=== PATIENT | female | born 1970 | race Caucasian/White ===

== ENCOUNTER 2017-10-19 13:29 | Emergency (ER) | payer MEDICARE, SELFPAY ==
[2017-10-19 13:31] VITALS: BP 146/91; PULSE 105; RESP 18; TEMP 36.8; O2SAT 97; BMI 33.3
--- NOTE | 2017-10-19 15:10 | RAD_ITS ---
STUDY: X-RAY - PELVIS AND LEFT HIP REASON FOR EXAM: Female, 47 years old. fell. Pain in left mid femur into left hip. TECHNIQUE: Radiological exam, hip, unilateral, with pelvis when performed; 2 or 3 views. COMPARISON: None. FINDINGS: Stool throughout the colon. Normal visualized soft tissue structures. Normal bilateral iliac wings, sacroiliac joints and visualized sacrum. Normal bilateral superior and inferior pubic rami. Normal pubic symphysis. Normal bilateral ischial tuberosities. Normal visualized femoral head. There is osteoarthritic spur formation of the acetabular rim. There is mild articular joint space narrowing of the hip. RAD/Hip 2-3 Views with Pelvis IMPRESSION: Mild degenerative findings the left hip. Constipation Electronically Signed: Brandon Mccoy MD at 16:10 EST , Service support ,
--- NOTE | 2017-10-19 15:11 | ED.VISSUMM ---
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 Including the left hip knee tib-fib ankle and foot on the left are unremarkable she claims of some mild pain to the left mid thigh but again the left lower extremity has full range of motion generally unremarkable exam the knee on the left is unremarkable as is the calf ankle and foot the right side is unremarkable the upper extremities are uninvolved she is neurologically at her baseline Test Results: [] Emergency Department Course and Treatment: [] Given all the above and x-rays obtained of the left hip and femur that are unremarkable explained the above to her there is no signs this time with acute fracture I explained the concept of an occult ligamentous bony tendinous injury there is nothing to suggest DVT there is no vascular abnormalities, we discussed using a walker cane crutches she denies that she is able to take Tylenol No. 3 as a pain med related to allergies to other meds she was prescribed 12 tablets ice to the area recommended a cane and follow-up with her family doctor or orthopedics and return for change in symptoms she agrees to this plan Treatment Plan: [] Disposition: [] Stable home Impression: [] Fall with left lower extremity pain injury This note was generated with [employer] dictation software. It may contain incorrect words, spelling, and punctuation that were not noted in review of the chart prior to signing ED Disposition - Plan for ED Patient: Chief Complaint: Fall Referrals: Ifeoma Mustafa MD [Primary Care Provider] -
--- NOTE | 2017-10-19 15:14 | ED.DEP ---
ED Disposition - Plan for ED Patient: Chief Complaint: Fall Instructions: ED Mechanical Fall Prescriptions: Acetaminophen/Codeine #3 [Tylenol #3 Tablet] 1 - 2 tab PO Q6H PRN #12 tab PRN Reason: Pain Referrals: Ifeoma Mustafa MD [Primary Care Provider] - Sasha Valles DO [STAFF PHYSICIAN] -
--- NOTE | 2017-10-19 15:32 | RAD_ITS ---
STUDY: X-RAY - LEFT FEMUR REASON FOR STUDY: Female, 47 years old. Patient fell. Pain in left mid femur into left hip. TECHNIQUE: Radiological exam, femur, minimum 2 views COMPARISON: None. FINDINGS: There is an exostosis of the distal lateral femoral shaft. This points away from the joint. Normal visualized soft tissue structure. No acute fractures. No dislocation. RAD/Femur Min 2 Views IMPRESSION: There is an exostosis of the distal lateral femoral shaft. This points away from the joint. This is likely benign. Electronically Signed: Brandon Mccoy MD at 16:02 EST , Service support ,
[2017-10-19 16:38] VITALS: RESP 18
[2017-10-19 16:51] VITALS: BP 159/82; PULSE 96; O2SAT 99
== END 2017-10-19 16:52 | disposition home or self-care (01) ==
PROVIDERS: Emergency Provider Emergency Medicine; Family Provider Internal Medicine; PCP Internal Medicine
DX: M79.605 Pain in left leg (principal); H54.8 Legal blindness, as defined in USA; W01.0XXA Fall on same level from slipping, tripping and stumbling without subsequent striking against object, initial encounter; Y93.9 Activity, unspecified; Y92.89 Other specified places as the place of occurrence of the external cause; Y99.9 Unspecified external cause status
CPT/HCPCS: 73502; 73552; 99282

== ENCOUNTER → 2017-10-29 13:15 | Outpatient (CLI) | payer MEDICARE, SELFPAY ==
--- NOTE | 2017-10-29 13:18 | RAD_ITS ---
STUDY: X-RAY - PELVIS AND RIGHT HIP REASON FOR EXAM: Right hip pain, no specific injury. TECHNIQUE: Radiological exam, hip, unilateral, with pelvis when performed; 2 or 3 views. COMPARISON: Radiographs of the pelvis/left hip 10/19/2017. FINDINGS: There are small pelvic phleboliths. There is mild enthesopathy of the iliac crests bilaterally. Normal bilateral superior and inferior pubic rami. Normal pubic symphysis. Normal bilateral ischial tuberosities. Normal visualized right femoral head. Normal right acetabulum. There are small marginal osteophytes of the right femoral head without demonstrated joint space narrowing. RAD/Hip 2-3 Views with Pelvis IMPRESSION: Small marginal osteophytes of the right femoral head. Electronically Signed: David Reed MD at 15:34 EST Tel , Service support ,
== END ==
PROVIDERS: Family Provider Internal Medicine; PCP Internal Medicine; Visit Provider Orthopaedic Surgery
DX: M25.551 Pain in right hip (principal)
CPT/HCPCS: 73502

== ENCOUNTER → 2018-01-20 10:10 | Outpatient (CLI) | payer MEDICARE, MEDICAID, SELFPAY ==
--- NOTE | 2018-01-20 10:22 | US_ITS ---
STUDY: SUPERFICIAL ULTRASOUND - LEFT INDEX FINGER. REASON FOR EXAM: Female, 47 years old. Swelling. TECHNIQUE: A superficial ultrasound was performed with real-time and static saunders-scale imaging. COMPARISON: None. FINDINGS: Imaging of the left index finger was performed. No sonographic abnormality is seen. US/Ext Non Vasc Limited/Soft Tiss IMPRESSION: No sonographic abnormality is seen. Electronically Signed: Reed Vallejo MD at 10:17 EDT Tel [phone], Service support ,
== END ==
PROVIDERS: Family Provider Internal Medicine; PCP Internal Medicine
DX: R22.32 Localized swelling, mass and lump, left upper limb (principal)
CPT/HCPCS: 76882

== ENCOUNTER → 2018-03-04 12:14 | Outpatient (CLI) | payer MEDICARE, MEDICAID, SELFPAY ==
--- NOTE | 2018-03-04 12:38 | MRI_ITS ---
STUDY: MRI LEFT HAND (ATTENTION INDEX FINGER) REASON FOR EXAM: Laceration at PIP joint of index finger in October, swelling, unable to bend. TECHNIQUE: Standardized fat and water weighted pulse sequences were obtained in all 3 orthogonal planes. COMPARISON: None. FINDINGS: Normal phalanges and visualized metacarpal of the index finger. Normal second metacarpophalangeal joint. Normal proximal and distal interphalangeal joints of the index finger. There is mild flexor tenosynovitis of the index finger from the level of the metacarpal head to the proximal phalangeal neck (inversion recovery axial images 7-19). The flexor tendons of the index finger appear intact. Normal extensor apparatus of the index finger with the central slip insertion intact (T2 sagittal image 10) and intact terminal tendon insertion (T2 sagittal image 10). Normal subcutis adipose space without soft tissue mass or cyst. MRI/Upper Ext/No Jt/ wo IMPRESSION: Mild flexor tenosynovitis of the index finger. No demonstrated extensor tendon laceration of the index finger. Electronically Signed: David Reed MD at 15:32 EDT Tel , Service support ,
== END ==
PROVIDERS: Family Provider Internal Medicine; PCP Internal Medicine
DX: S61.211A Laceration without foreign body of left index finger without damage to nail, initial encounter (principal)
CPT/HCPCS: 73218

== ENCOUNTER 2018-06-12 12:00 | Outpatient (RCR) | payer MEDICARE, MEDICAID, SELFPAY ==
--- NOTE | 2018-05-15 15:39 | HP.OTEVAL_ITS ---
Patient's Visit Information ALLIE LYNN is a 48 year old F, referred to Occupational Therapy by TORI PATINO, with a diagnosis of tenosynovitis flexor tendon of L IF. Date of Evaluation: 05/15/18 Occupational Therapist: Estela Ochoa - Subjective Subjective: Arrived and noted that she cut L IF PIP [facility] last year. She noted she has x-ray confirmed no break but MRI which indicate slight trigger finger but all else was normal. Noted very touchy and stiff. Has previously had trigger finger release a while ago on R thumb and believes also L IF but unsure at this time and will need to check medical records at [facility]. - Pain Hand 5 Pain Intensity Range: 4, 5, 8 - ROM MP: IF R 4-53, L -12-76 PIP: IF R 14-72, L 0-107 DIP: IF R -9- 28, L -27-47 - Strength Housekeeping Assistant: R 95, L 31 Lateral Pinch: R 16, L 2 Tripod Pinch: L 12, L 5 Tip-to-Tip Pinch: unable due to pain on L side. - Edema Other: puffiness over MCP volar base at A1 raymond. - Sensation Sensation Comments: denies numbness or tingling. - DASH-Disabilities of Arm, Shoulder& Hand DASH Sum: 80 - Goals Goal:: Allie to increase L termite treater helper strength in pain free range to that of within 20- 30 lbs of R termite treater helper to promote increased strength and ability to manipulation self care by d/c. Goal:: Allie to regain ROM of L IF PIP and DIP similar to R IF to decrease stiffness and promote ROM needed for self care and IADls by d/c. Goal:: Allie to have no more than 1/10 pain in L IF with ADL/IADLS 4/5 trials 80 % of the time by d/c. Goal:: Allie to be (i) with all ADL/IADLs 4/5 trials 80% of the time but d/c. Goal:: Allie to be mod I to complete HEP 80% of the time to promote decreasing symptoms and promote returning to PLOF 4/5 trials 80% of the time by d/c. - Rehabilitation General Assessment: Allie arrived for OT evaluation on this date 9/13/18. She believes she has previously had IF trigger finger release a while ago and has start having problems in October of this year. She noted she has increased pain with all movements of L IF. She additionally has decreased ROM, strength, and ability to manipulate self-care items like with R unaffected hand. OT needed to help decrease pain and provide with pain management techniques, promote ROM, strength, and returning to PLOF for all ADL/IADLs. Rehabilitation Potential: Good - Anticipated Interventions Anticipated Interventions: A/AAROM/PROM, Strengthening, Edema Control, Modalities, Orthoses, Joint Protection/Energy Conservation, Fine Motor Coord/ Bony, Caregiver Training, Home Program - Visit Plan Frequency: 2x /Week Duration: 4 Weeks General Plan: Allie to complete OT to promote decreasing pain and pain and edema management techniques, ROM, strengthening, and splint as needed to promote increased ability to complete ADL/AIDls (i) as possible despite visual limitations. TEXT: Thank you for the opportunity to evaluate your patient. For Medicare and Medicare HMO plans, please review the plan of care and approve it. It will need to be FAXED BACK to us at [phone] for Medicare purposes. Please let me know if there are questions or concerns regarding this plan of care. Physician Signature: Date:
--- NOTE | 2018-05-16 10:13 | HP.OTCOM ---
OT Communication Note 05/16/[address] TORI PATINO Sona has obtained medical records from [facility] and clarified that past trigger finger releases were on R thumb and L ring finger. She has not had trigger finger release on current L IF in which she has referred been for treatment. This will not affect treatment as conservative management of condition was part of POC. This was warranted to gain greater understanding of functioning and prior treatment of condition. Sincerely, Estela Ochoa, OTR/L Contact Information
--- NOTE | 2018-05-16 10:18 | HP.OTCOM_ITS ---
OT Communication Note 05/16/[address] TORI PATINO Sona has obtained medical records from [facility] and clarified that past trigger finger releases were on R thumb and L ring finger. She has not had trigger finger release on current L IF in which she has referred been for treatment. This will not affect treatment as conservative management of condition was part of POC. This was warranted to gain greater understanding of functioning and prior treatment of condition. Sincerely, Estela Ochoa, OTR/L Contact Information
--- NOTE | 2018-06-12 12:20 | OTREVAL_ITS ---
TORI PATINO, It has been my pleasure to treat ALLIE LYNN over the last 7 visits for tenosynovitis flexor tendon of L IF. Please see the progress note below for an update on the occupational therapy plan of care! Subjective: Arrived with no splint. Noted that she doesn't feel she has made much progress and noted that previously did not make progress until having trigger finger release completed. She has prior h/o of PXE. Objective/Function: Completed reassessment and measurements are as follows: IF. MCP R WNL L 10-56 passive L 10-61. PIP Flexion R WNL, L 10-64 passive L 10-80. DIP flexion R WNL, L 0-12 passive 0-41. Strength: landscaping and groundskeeping laborer R 62, L 29. lateral R 16, L 6. three jaw R 14, L 5. tip DNT due to pain. Increased sensitivity over volar skin and with all passive ROM. Increased edema noted on volar MCP pad at A1 raymond. Plan Frequency: 2x /Week Duration: 4 Weeks Visits in this POC: 8 Plan: Allie will be d/c'd today as she has completed approved visits by insurance. Due to little progress she has scheduled follow up with referring doctor to determine POC. She has not been wearing custom trigger finger splint and has been provided with information of where to obtained/purchase prefabricated one. Goals - Goals Goal:: Allie to increase L landscaping and groundskeeping laborer strength in pain free range to that of within 20- 30 lbs of R landscaping and groundskeeping laborer to promote increased strength and ability to manipulation self care by d/c. Goal:: Allie to regain ROM of L IF PIP and DIP similar to R IF to decrease stiffness and promote ROM needed for self care and IADls by d/c. Goal:: Allie to have no more than 1/10 pain in L IF with ADL/IADLS 4/5 trials 80% of the time by d/c. Goal:: Allie to be (i) with all ADL/IADLs 4/5 trials 80% of the time but d/c. Goal:: Allie to be mod I to complete HEP 80% of the time to promote decreasing symptoms and promote returning to PLOF 4/5 trials 80% of the time by d/c. Anticipated Interventions Anticipated Interventions: A/AAROM/PROM, Strengthening, Edema Control, Modalities, Orthoses, Joint Protection/Energy Conservation, Fine Motor Coord/Bony, Caregiver Training, Home Program Please do not hesitate to contact me at [phone] by phone or if you have questions or concerns regarding this new plan of care! Sincerely, Estela Ochoa
--- NOTE | 2018-07-17 17:02 | HP.OTDCSUM_ITS ---
HP - OT D/C Summary It has been my pleasure to treat ALLIE LYNN under orders from TORI PATINO, for the diagnosis of tenosynovitis flexor tendon of L IF for a total of 7 visit(s). Please see the following information for a summary of their discharge status. - Objective Objective/Function: Completed reassessment and measurements are as follows: IF. MCP R WNL L 10-56 passive L 10-61. PIP Flexion R WNL, L 10-64 passive L 10-80. DIP flexion R WNL, L 0-12 passive 0-41. Strength: metal fabricating inspector R 62, L 29. lateral R 16, L 6. three jaw R 14, L 5. tip DNT due to pain. Increased sensitivity over volar skin and with all passive ROM. Increased edema noted on volar MCP pad at A1 raymond. - Goals Patient Goals: Regain Mobility, Regain Strength, Decrease Pain, Improve Fine Motor Skills, Use Hand/Wrist/Arm Normally Again, Increase ROM, Be More Independent in ADLS, Decrease Sensitivity, Resume Former Household Responsibilities (Cooking,Cleaning,Yard, etc.), Resume Hobbies Goal:: Allie to increase L metal fabricating inspector strength in pain free range to that of within 20- 30 lbs of R metal fabricating inspector to promote increased strength and ability to manipulation self care by d/c. Goal:: Allie to regain ROM of L IF PIP and DIP similar to R IF to decrease stiffness and promote ROM needed for self care and IADls by d/c. Goal:: Allie to have no more than 1/10 pain in L IF with ADL/IADLS 4/5 trials 80% of the time by d/c. Goal:: Allie to be (i) with all ADL/IADLs 4/5 trials 80% of the time but d/c. Goal:: Allie to be mod I to complete HEP 80% of the time to promote decreasing symptoms and promote returning to PLOF 4/5 trials 80% of the time by d/c. - Plan Plan: Allie will be d/c'd today as she has completed approved visits by insur taj. Due to little progress she has scheduled follow up with referring doctor to determine POC. She has not been wearing custom trigger finger splint and has been provided with information of where to obtained/purchase prefabricated one. - D/C Information If there are questions or concerns regarding this patient's occupational therapy, please fell free to call me at [phone]. Thank you for the referral of this patient. Sincerely, Estela Ochoa
== END 2018-06-12 19:00 | disposition home or self-care (01) ==
LOC: OT 12:00
PROVIDERS: Family Provider Internal Medicine; PCP Internal Medicine
DX: M65.9 Synovitis and tenosynovitis, unspecified (principal)
CPT/HCPCS: 97035; 97110; 97166; 97168; 97530; 97760

== ENCOUNTER → 2018-10-20 14:04 | Outpatient (CLI) | payer MEDICARE, MEDICAID, SELFPAY ==
--- NOTE | 2018-10-20 14:08 | RAD_ITS ---
STUDY: X-RAY - LUMBAR SPINE REASON FOR EXAM: Female, 48 years old. No back pain TECHNIQUE: 5 view(s) of the lumbar spine were obtained. COMPARISON: CT abdomen pelvis sagittal views 12/07/2015. FINDINGS: Normal lumbar lordosis. There is no substantial scoliosis. There is a normal alignment of the vertebrae. Out spondylosis of the endplates. There is mild loss of vertebral body height along the superior endplate L1 and L2 left L3. There is anterior spurring of L1, L2, superior endplate L3 and L4. Mild facet arthropathy L4-5, 5 S1. Normal disc space heights. The soft tissue structures are unremarkable. RAD/L/S Spine Min 4 Views IMPRESSION: Degenerative changes of the spine, as detailed above. Mild decrease of vertebral body height of the upper lumbar spine was present on previous CT abdomen pelvis at L2 level. This is felt to be secondary to degeneration rather than trauma, clinical correlation advised. Electronically Signed: Elaine Ambrosio MD at 6:54 EST , Service support ,
--- NOTE | 2018-10-20 14:08 | RAD_ITS ---
STUDY: X-RAY - LEFT HIP REASON FOR EXAM: Female, 48 years old. Hip pain TECHNIQUE: 2 views of the hip. COMPARISON: None. FINDINGS: There appears to be a prominent osseous spur from the superior lateral aspect of the femoral head measuring 6.7 mm. There are osteoarthritic changes of the femoral head with marginal osteophyte formation. Normal acetabulum. There is mild articular joint space narrowing. Normal visualized superior and inferior pubic rami and ischial tuberosities. RAD/HIP, UNI W/ Pelvis 2-3 Views IMPRESSION: No acute findings. Early degenerative changes. Prominent femoral head spur Electronically Signed: Orlando Figueroa DO at 9:27 EST Tel , Service support ,
--- NOTE | 2018-10-20 14:08 | RAD_ITS ---
HISTORY: Pain COMPARISON: 10/29/2017 FINDINGS: XR AP pelvis right hip 3 views No significant change. No fracture or acute disease. The right and left femoral acetabular joint spaces appear preserved. No bony erosions. SI joints appear preserved. Pelvic phleboliths. Soft tissues show no significant abnormality. RAD/HIP, UNI W/ Pelvis 2-3 Views IMPRESSION: 1. No acute disease or significant change. 2. No significant arthritis identified. at 0742 Reported and signed by: Alan Nevarez MD Electronically Signed: Alan Nevarez, at 7:40 EST Tel , Service support ,
== END ==
PROVIDERS: Family Provider Internal Medicine; PCP Internal Medicine; Referring Provider Orthopaedic Surgery; Visit Provider Orthopaedic Surgery
DX: M25.551 Pain in right hip (principal); M25.552 Pain in left hip
CPT/HCPCS: 72110; 73502

== ENCOUNTER 2018-11-29 12:25 | Emergency (ER) | payer MEDICARE, MEDICAID, SELFPAY ==
[2018-11-29 12:28] VITALS: BP 151/71; PULSE 85; RESP 18; TEMP 36.4; O2SAT 97; BMI 31.2
--- NOTE | 2018-11-29 13:01 | EKG12_ITS ---
Test Reason : HTN Blood Pressure : / mmHG Vent. Rate : 083 BPM Atrial Rate : 083 BPM P-R Int : 150 ms QRS Dur : 066 ms QT Int : 362 ms P-R-T Axes : 024 -12 028 degrees QTc Int : 425 ms Normal sinus rhythm Low voltage QRS Septal infarct (cited on or before 09-DEC-2015), age undetermined Abnormal ECG Confirmed by MANISHA CORREIA, YOGI ([id number]), city editor AUDRA MONTEZ ([id number]) on 12/02/2018 1:09:12 PM Referred By: DEVAUGHN Confirmed By:YOGI DYER MD
--- NOTE | 2018-11-29 13:02 | CT_ITS ---
STUDY: CTA NECK WITH CONTRAST REASON FOR EXAM: Female, 48 years old. Dizziness RADIATION DOSAGE (If Supplied By Facility): CTDIvol = ( 23.54 ) mGy, DLP = ( 754.59 ) mGycm TECHNIQUE: CT angiography with multi-detector data acquisition was performed from the aortic arch to the skull base following intravenous administration of 100ml IV Isovue 370. MIP images were reconstructed from the axial data set. Post-processing of the angiographic images was performed, with multiplanar reformation and 3D reconstruction. Degree of stenosis (when present) measured utilizing NASCET criteria. Individualized dose optimization techniques were used for this CT. COMPARISON: None. FINDINGS: AORTIC ARCH: Normal visualized aortic arch. Normal origins of the brachiocephalic, left common carotid, and left subclavian arteries. RIGHT CAROTID ARTERIES: Normal right common carotid artery (CCA). There is mild atherosclerotic plaque formation with minimal narrowing of the right carotid bulb. There is mild atherosclerotic plaque formation of the origin of the right internal carotid artery with 40% cross sectional diameter stenosis. Normal visualized cervical portion of the right internal carotid artery. Normal origin of the right external carotid artery (ECA). LEFT CAROTID ARTERIES: Normal left common carotid artery (CCA). There is mild atherosclerotic plaque formation with minimal narrowing of the left carotid bulb. There is mild atherosclerotic plaque formation of the origin of the left internal carotid artery with 20% cross sectional diameter stenosis. Normal visualized cervical portion of the left internal carotid artery. Normal origin of the left external carotid artery (ECA). VERTEBRAL ARTERIES: There is enhancement within the bilateral vertebral arteries with a small left vertebral artery, and a dominant right vertebral artery. There are degenerative changes of the cervical spine. CT/CTA Neck W/WO Contrast IMPRESSION: 1. Right slightly worse than left ICA carotid atherosclerosis/stenosis measuring 40% on the right and 20% on the left. 2. No arterial dissection. Electronically Signed: Km Noyola MD at 15:30 EDT , Service support ,
--- NOTE | 2018-11-29 13:05 | ED.VISSUMM ---
- ER Visit Summary Date of Service: 11/29/18 Chief Complaint: Hypertension and high heart rate History of Present Illness: The patient is a 48 F who is just generally not felt well for the past week or so. She complains of intermittent headaches and sweats along with left shoulder throbbing this past week. 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 Patient states she used to be checked regularly but does not member when she last had ultrasound of her neck vessels or her heart checked. She called her primary care physician to be seen on Saturday but was advised to come to the emergency room. She states her heart rate at home was 113 which is slightly high for her. Physical Examination: Blood pressure is 151/71, temperature 97.6, heart rate 85, respiratory rate 18, pulse ox 97% on room air. Patient is sitting upright in bed in no acute distress. Head neck examination grossly unremarkable. Heart is regular rate and rhythm. Lungs sounds are clear. Abdomen is soft nontender. Extremity examination reveals no focal tenderness with palpation over the extremities. Neuro exam reveals no focal deficits. Test Results: CBC and chemistry studies normal. LFTs normal. Troponin negative. EKG is sinus 83 with no acute ischemia. CTA of the head and neck reveals moderate stenosis of the right cavernous carotid artery. There is right greater than left internal carotid artery stenosis (40% versus 20%). Emergency Department Course and Treatment: Patient is given IV fluids and ibuprofen. She is updated on the test results. She will be given prescription for Reglan and Benadryl that she can take with her ibuprofen at bedtime. Treatment Plan: [] Disposition: Discharge Impression: Cephalgia This note was generated with [employer] dictation software. It may contain incorrect words, spelling, and punctuation that were not noted in review of the chart prior to signing ED Disposition - Plan for ED Patient: Referrals: Ifeoma Mustafa MD [Primary Care Provider] -
[2018-11-29] MEDS: 0.9% Normal Saline 1,000 ML 150 ML IV (13:29)
[2018-11-29 13:30] VITALS: PULSE 80; RESP 20; O2SAT 95
[2018-11-29 13:49] LABS: Absolute Lymphocyte Count 1.26 X10^3/ul (0.83-4.51); Basophil# 0.02 X10^3/uL; Basophil% 0.3 % (0-1); Eosinophil# 0.28 X10^3/uL; Eosinophils% 3.8 % (0-5); Hematocrit 40.6 % (37-47); Lymphocyte # 1.26 X10^3/ul (4.0); Lymphocyte % 17.1 % (19-41); Mean Corpuscular Hgb 29.1 pg (27.0-32.0); Mean Platelet Vol. 10.5 fl (6.2-12.0); Monocyte% 10.9 % (0-10); Neutrophil # 4.99 X10^3/uL (2.7-7.7); Neutrophil % 67.6 % (47-70); POSITIVE COUNT NO; POSITIVE DIFFERENTIAL NO; POSITIVE MORPHOLOGY NO; Platelet Count 311 K/mm3 (150-450); RBC Distribution Width CV 12.9 % (11.6-14.6); RBC Distribution Width SD 42.7 fl (35.1-43.9); Red Blood Count 4.46 M/mm3 (4.2-5.4); White Blood Count 7.4 K/mm3 (4.4-11.0)
[2018-11-29 14:17] LABS: AST(SGOT) 21 U/L (15-37); Alanine Aminotransfer ALT/SGPT 27 U/L (13-56); Albumin, Serum 3.6 g/dL (3.2-5.0); Alkaline Phosphatase 86 U/L (45-117); Anion Gap 5 (5-15); BUN 20 mg/dL (7-18); BUN/Creat Ratio 20.7 RATIO (10-20); Bilirubin, Direct 0.11 mg/dL (0.00-0.30); Calcium,Total 8.8 mg/dL (8.5-10.1); Chloride 104 mmol/L (98-107); Creatinine, Serum 0.97 mg/dL (0.55-1.02); EST Glomerular Filtration Rate 65 mL/min (>60); Est Glom Filt Rate - Afr Amer 79 mL/min (>60); Estimated Creatinine Clearance 50.39 ml/min; Globulin 3.7 g/dL (2.2-4.2); Glucose 83 mg/dL (74-106); Potassium 3.9 mmol/L (3.5-5.1); Protein, Total 7.3 g/dL (6.4-8.2); Sodium Level 137 mmol/L (136-145)
--- NOTE | 2018-11-29 14:20 | CT_ITS ---
STUDY: CTA OF THE BRAIN REASON FOR EXAM: Female, 48 years old. Dizziness RADIATION DOSAGE (If Supplied By Facility): CTDIvol = ( 23.54 ) mGy, DLP = ( 754.59 ) mGycm TECHNIQUE: Noncontrast head CT initially performed. CT angiography was performed with a multi-detector CT scanner. Data acquisition was obtained from the skull base through the vertex following intravenous administration of 100ml IV Isovue 370. MIP images were reconstructed from the axial data set. Post-processing of the angiographic images was performed, with multiplanar reformation and 3D reconstruction. Individualized dose optimization techniques were used for this CT. COMPARISON: None. FINDINGS: Normal bilateral petrous carotid arteries. There is calcified plaque formation of the right cavernous carotid artery, with a moderate stenosis. Normal left cavernous carotid artery with a normal supraclinoid bifurcation. Normal right A1 segments of the anterior cerebral artery. Normal left A1 segments of the anterior cerebral artery. Normal intact anterior communicating artery (ACOM). Normal bilateral A2 segments of the anterior cerebral arteries. Normal right M1 and M2 segments of the middle cerebral arteries, with a normal M1 bifurcation. Normal left M1 and M2 segments of the middle cerebral arteries, with a normal M1 bifurcation. Normal right posterior communicating artery (PCOM). Normal left posterior communicating artery (PCOM). There is a small atretic left vertebral artery with a dominant right vertebral artery. Normal basilar artery with a normal basilar bifurcation. The visualized bilateral superior cerebellar (SCA) arteries are normal. Normal bilateral P1, P2 and visualized P3 segments of the posterior cerebral arteries. There is no demonstrated aneurysm of the [place]. Ventricular system is normal. No masses, mass effects or shift of midline structures. No acute hemorrhage, obvious infarction or abnormal collection of extra-axial fluid. The calvarium and extracranial soft tissues are unremarkable. The visualized paranasal sinuses, orbits and mastoid air cells are normal. CT/CTA Head W/WO Contrast IMPRESSION: 1. No intracranial aneurysm detected. 2. No acute intracranial hemorrhage or mass effect. 3. Moderate stenosis of the right cavernous carotid artery. Electronically Signed: Km Noyola MD at 15:27 EDT , Service support ,
[2018-11-29 15:20] VITALS: BP 121/85; PULSE 95; RESP 15; O2SAT 98
[2018-11-29] MEDS: Ibuprofen 600 MG Tablet PO (15:21)
--- NOTE | 2018-11-29 15:47 | ED.DEP ---
ED Disposition - Plan for ED Patient: Disposition: Home or Assisted Living Instructions: ED Cephalgia Unspecified Prescriptions: DiphenhydrAMINE [Benadryl] 50 mg PO QHS PRN PRN #7 capsule PRN Reason: Headache Metoclopramide [Reglan] 10 mg PO QHS PRN PRN #7 tablet PRN Reason: Headache Referrals: Ifeoma Mustafa MD [Primary Care Provider] - 5-7 Days
[2018-11-29 16:08] VITALS: BP 106/87; PULSE 79; RESP 17; O2SAT 98
== END 2018-11-29 16:09 | disposition home or self-care (01) ==
PROVIDERS: Emergency Provider Emergency Medicine; Family Provider Internal Medicine; PCP Internal Medicine
DX: R51 Headache (principal); I65.23 Occlusion and stenosis of bilateral carotid arteries; M79.10 Myalgia, unspecified site; I10 Essential (primary) hypertension; H54.7 Unspecified visual loss
CPT/HCPCS: 70496; 70498; 80048; 80076; 84484; 85025; 93005; 96360; 96361; 99285; Q9967

== ENCOUNTER 2018-12-09 12:30 | Outpatient (RCR) | payer MEDICARE, MEDICAID, SELFPAY ==
--- NOTE | 2018-10-27 18:34 | HP.PTEVAL_ITS ---
Patient's Visit Information ALLIE LYNN is a 48 year old F referred to Physical Therapy by Phillip Pozo DO with a diagnosis of BILATERAL OA,SACROLITIS,INTERNAL SNAPPING. Date of Evaluation: 10/27/18 Physical Therapist: Oleg Pastrana PT, Cert MDT, OCS - Visit Plan Frequency: 2x /Week Duration: 6 Weeks Plan: BILTERAL HIP ROM/FLEXABLITY,HIP STRENGTHENING,DLS PROGRAM FOR ABD/BACK,MODALITIES NEEDED - Subjective Findings: This 48 y/o female presents to physical therapy with Blateral hip pain OA ,sacrolitis. Patient has hip and lumbar many years. Patient had one episode falling 2018 twisted left hip. Patient location of right L-S /SI ,right groin region,left side catching hip. Symptoms aggravating factors with standing ,walking, squatting,bending lifting . Patient better with with ibuprofrin. Patient seen orthopedic lars Macedo x-rays showed OA. Recommended melocicam. Patient sleeping okay at night. Coughing /sneezing -. Bowel/bladder -. C/O parathesia/tingling left leg. Patient symptoms affect QOL and ADL'S. PRECAUTIONS: legally blind. VOCATION: disability. SOCIAL: single - Pain Right Back Pain Intensity (Out of 10): 4 Pain Intensity Range: 10 Right Hip Pain Intensity (Out of 10): 4 Pain Intensity Range: 10 - Objective POSTURE: mild foward posture. GAIT: normal rajesh reciprocal pattern. PALPATION: right SI/LS. NEURO: intact ,reflexes L3-4,L4-5,L5-S1. MMT: quads/hams/hip 4/5,ANKLE 4/5. SYMMTRIES: align. AROM: hip flexion 100 degrees,abduction 4 ,ER 60,IR,45. LUMBAR ROM: flexion WFL ,extension min loss,side glides min loss. FLEXABLITY: hams WFL,piriformis min tight - Special Tests L/S Slump test left side: Negative L/S Slump test right side: Negative L/S Left Straight Leg Raise: Negative L/S Right Straight Leg Raise: Negative Lumbar Standing: Flexion - Mechanical Response: No effect Lumbar Standing: Flexion - Symptoms During Testing: No effect Lumbar Standing: Flexion - Symptoms After Testing: No effect Lumbar Standing: Extension - Mechanical Response: No effect Lumbar Standing: Extension - Symptoms During Testing: Increases Lumbar Standing: Extension - Symptoms After Testing: No worse Lumbar Lying: Flexion - Mechanical Response: No effect Lumbar Lying: Flexion - Symptoms During Testing: No effect Lumbar Lying: Flexion - Symptoms After Testing: No effect Lumbar Lying: Extension - Mechanical Response: No effect Lumbar Lying: Extension - Symptoms During Testing: Centralizing Lumbar Lying: Extension - Symptoms After Testing: No worse R Hip Scour: Positive R Hip Quadrant - Intraarticular Pathology: Negative R Hip ASLHEY - Intraarticular Pathology: Positive R Hip Trendelenberg - Glut Medius: Negative R Hip Berto - IT Band: Negative L Hip Quadrant - Intraarticular Pathology: Negative L Hip ASHLEY - Intraarticular Pathology: Positive L Hip Trendelenberg - Glut Medius: Negative L Hip Berto - IT Band: Negative - Goals Goal 1:: Indepndant with HEP Goal Time Frame: 4-6 Weeks Goal 2:: Independant with posture/body mechanics Goal Time Frame: 4-6 Weeks Goal 3:: Decrease lumbar hip pain by 50% or greater to improve function with ADL'S Goal Time Frame: 4-6 Weeks Goal 4:: Patient improve improve lumbar mobllity for function of recovery. Goal Time Frame: 4-6 Weeks Goal 5:: Patient to improve LFES score by 8-10 points to improve QOL. Goal Time Frame: 4-6 Weeks - Rehabilitation Potential Physical Therapy Diagnosis: This patient has bilateral hip pain along with lumbar pain left side with pain with motion,decrease strength impairs walking and standing causes deficits for ADL'S and housework tasks. Rehabilitation Potential: Good - Anticipated Interventions Patient/Client Instruction: Educate patient on: Condition For the Purpose of:: To decrease pain, To increase ROM, To improve muscle performance and motor function, To improve ability to perform ADL's, To improve ability of physical actions for home/community/work/leisure, To improve health of tissue, To decrease soft tissue restriction, To reduce risk of recurrence, To improve ability to perform tasks related to life management Therapeutic Exercise to Include: Strength training, Body mechanics, Postural training, Flexibilty training, Passive ROM, Active ROM, Dynamic Lumbar S tabilization, Sd Exercises For the Purpose of:: To decrease pain, To increase ROM, To improve muscle performance and motor function, To improve ability to perform ADL's, To increase tolerance to activity/condition/position, To improve ability of physical actions for home/community/work/leisure, To improve health of tissue, To decrease soft tissue restriction, To increase flexibility/ROM, To improve ability to perform tasks related to life management TENS: Yes IF ES: Yes Cryotherapy (ice pack, ice massage): Yes Thermo therapy (hot pack): Yes Ultrasound (thermal/non thermal): Yes For the Purpose of:: To decrease pain, To increase ROM, To improve nutrient delivery to tissue, To increase oxygenation perfusion, To improve health of tissue, To decrease soft tissue restriction Thank you for the opportunity to evaluate your patient. For Medicare and Medicare HMO plans, please review the plan of care and approve it. It will need to be FAXED BACK to us at [phone] for Medicare purposes. For Medicare only, by signing this I certify the plan of care. Please let me know if there are questions or concerns regarding this plan of care. Physician Signature: Date:
--- NOTE | 2018-12-09 13:57 | HP.PTREVAL_ITS ---
Phillip Pozo, DO, It has been my pleasure to treat ALLIE LYNN over the last 7 visits for BILATERAL OA,SACROLITIS,INTERNAL SNAPPING. Please see the progress note below for an update on the physical therapy plan of care! Subjective: Doing better overall. ,pain in lateral hip /back with extended walking and standing. C/O pain in weakness lateral hips to knee Objective/Function: POSTURE: WFL. PALAPTION: tender very IT band. NEURIO: intact. AROM: IT BAND MIN TIGHT,PRIRIFORMIS MIN TIGH. LUMBAR ROM: flexion WFL, min loss extension,min loss side glides. MMT: quads/hams 4/5 , Plan Plan: REGUESTING 6 MORE VISITS Goals Goal 1:: Indepndant with HEP Goal Time Frame: 4-6 Weeks Goal Progress: Progressing Goal 2:: Independant with posture/body mechanics Goal Time Frame: 4-6 Weeks Goal Progress: Progressing Goal 3:: Decrease lumbar hip pain by 50% or greater to improve function with A DL'S Goal Time Frame: 4-6 Weeks Goal Progress: Progressing Goal 4:: Patient improve improve lumbar mobllity for function of recovery. Goal Time Frame: 4-6 Weeks Goal Progress: Progressing Goal 5:: Patient to improve LFES score by 8-10 points to improve QOL. Goal Time Frame: 4-6 Weeks Goal Progress: Progressing Anticipated Interventions Patient/Client Instruction: Educate patient on: Condition For the Purpose of:: To decrease pain, To increase ROM, To improve muscle performance and motor function, To improve ability to perform ADL's, To improve ability of physical actions for home/community/work/leisure, To improve health of tissue, To decrease soft tissue restriction, To reduce risk of recurrence, To improve ability to perform tasks related to life management Therapeutic Exercise to Include: Strength training, Body mechanics, Postural training, Flexibilty training, Passive ROM, Active ROM, Dynamic Lumbar Stabilization, Sd Exercises For the Purpose of:: To decrease pain, To increase ROM, To improve muscle performance and motor function, To improve ability to perform ADL's, To increase tolerance to activity/condition/position, To improve ability of physical actions for home/community/work/leisure, To improve health of tissue, To decrease soft tissue restriction, To increase flexibility/ROM, To improve ability to perform tasks related to life management TENS: Yes IF ES: Yes Cryotherapy (ice pack, ice massage): Yes Thermo therapy (hot pack): Yes Ultrasound (thermal/non thermal): Yes For the Purpose of:: To decrease pain, To increase ROM, To improve nutrient delivery to tissue, To increase oxygenation perfusion, To improve health of tissue, To decrease soft tissue restriction Please do not hesitate to contact me at [phone] by phone or if you have questions or concerns regarding this new plan of care! Sincerely, Oleg Pastrana, PT, Cert MDT, OCS
--- NOTE | 2018-12-16 13:15 | MASS.EVAL_ITS ---
Massage Therapy Evaluation: Initial Evaluation Date: 12/02/17 Subjective: Patient is a 3 year old female. . She was referred to the [facility] facility by Dr. Pozo, with the diagnosis of hip pain. She reports of having neck,back pain, shoulder, and hip pain due to her disease. She also reports of having headaches and vision issues. Her goals of treatment are to relieve stress and to release the knots in her back. She is being treated with physical therapy right before her massage treatments. Objective: The first treatment consisted of a one hour massage to the upperbody and hip using moderate pressure. Upon observation I found that she had high tension in her neck and shoulders where she has knots in her trapezius muscles and rhomboids. I also found that her paraspinals were tight and ropy. She also had restrictions within her hips. Assessment: The patient easily relaxed and was able to tolerate deep pressure when needed. I was able to achieve a moderate release overall. I feel that she is a good candidate for massotherapy due to how she has responded to her first massage. Plan: The plan of care was reviewed with the patient and she is to be seen after physical theray. Mary Cano LMT
== END 2018-12-09 19:00 | disposition home or self-care (01) ==
LOC: MASS 12:30
PROVIDERS: Family Provider Internal Medicine; PCP Internal Medicine; Referring Provider Orthopaedic Surgery; Visit Provider Orthopaedic Surgery
DX: M16.0 Bilateral primary osteoarthritis of hip (principal); M46.1 Sacroiliitis, not elsewhere classified; M24.859 Other specific joint derangements of unspecified hip, not elsewhere classified
CPT/HCPCS: 97110; 97124; 97162; 97530

== ENCOUNTER → 2019-02-13 15:30 | Outpatient (CLI) | payer MEDICARE, MEDICAID, SELFPAY ==
[2019-01-02 10:15] VITALS: BMI 31.2
--- NOTE | 2019-02-13 16:00 | MRI_ITS ---
HISTORY:LBP, radiates to right hip and groin MR Spine Lumbar W/O Contrast Technique:Sagittal T1-T2 and STIR and axial T1 and T2-weighted images # of images including paperwork:125 Comparison:Radiographs obtained on October 20, 2018 Findings: The conus ends at the T12-L1 disc space and appears within normal limits. T12-L1: Disc height and hydration are preserved. There is no evidence of the disc contour abnormality or canal stenosis. No significant neural foraminal narrowing or nerve root impingement. L1-2:Decreased disc height and hydration. There are posterior osteophytes and a diffuse annular bulge. This does efface the ventral thecal sac. The thecal sac is flattened measuring approximately 6.7 mm. The canal has a trefoil appearance. There is mild to moderate bilateral neural foraminal narrowing slightly greater on the right. No significant nerve root impingement L2-3:Disc desiccation. Mild annular bulge. This is asymmetric to the left extending into the left neural foramen. There is mild left neural foraminal narrowing. No canal stenosis. No significant nerve root impingement L3-4:Disc desiccation. There is a diffuse annular bulge asymmetric to the left. There is no evidence of canal stenosis. Mild bilateral neural foraminal narrowing. No significant nerve impingement L4-5:Disc desiccation. Mild annular bulge. There is mild bilateral neural foraminal narrowing. No significant nerve impingement L5-S1:Disc desiccation. There is a diffuse annular bulge and tiny central disc protrusion. No evidence of canal stenosis however there is a prominent amount of adipose tissue surrounding the thecal sac. The thecal sac is narrowed to approximately 8 mm at this level. Mild left neural foraminal narrowing. No significant nerve impingement MRI/Spine Lumbar (Routine) IMPRESSION: Degenerative changes of the lumbar spine as discussed. There is no significant nerve root impingement There is a diffuse annular bulge and posterior osteophytes seen at the level of L1-2. There is a trefoil appearance the canal. Thecal sac is flattened to approximately 6.7 mm At the level of L5-S1 the thecal sac is narrowed to approximately 8 mm secondary to lipomatosis. at 1729 Reported and signed by: Sylwia An DO Electronically Signed: Sylwia An DO at 17:27 EDT Tel , Service support ,
== END ==
PROVIDERS: Family Provider Internal Medicine; PCP Internal Medicine; Referring Provider Nurse Practitioner Family; Visit Provider Nurse Practitioner Family
DX: M46.96 Unspecified inflammatory spondylopathy, lumbar region (principal); M51.37 Other intervertebral disc degeneration, lumbosacral region; M54.17 Radiculopathy, lumbosacral region; M47.817 Spondylosis without myelopathy or radiculopathy, lumbosacral region
CPT/HCPCS: 72148

== ENCOUNTER 2019-11-19 16:30 | Outpatient (RCR) | payer MEDICARE, MEDICAID, SELFPAY ==
[2019-01-02 10:15] VITALS: BMI 31.2
--- NOTE | 2019-10-19 14:07 | HP.PTEVAL ---
Patient's Visit Information ALLIE LYNN is a 49 year old F referred to Physical Therapy by POLLO Mayen with a diagnosis of cervical radiculopathy. Date of Evaluation: 10/19/19 Physical Therapist: Quincy Zurita, BHUPINDERT, OCS, CSCS - Visit Plan Frequency: 2x /Week Duration: 4-6 Weeks Plan: 2x/week for 4-6 weeks for : 1. c.s ret ext based judi ex progression of forces to tolerance and mobs cervical spine as needed.(monitor c/s rotation/SB and ext rom.). 2. strengthening of posture adn c/s. 3. Oversee return to [employer] ex with emphasis on postural and neck ex without increased pain. 4. STM to neck as necessary for pain with MH. 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 Has worsening neck pain. Does ex stretches daily. Needs therapy before having MRI. Neck pain is constant at least 3/10. Is very active. Lives by self and is legally blind. Is stiff in morning upon waking. Does ROM movements and side tilting can be bothersome. Using arms makes her worse. 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 Sleeps OK for the most part. Not employed. Cannot drive due to blindness. Hobbies include [employer] in [place]. Neck pain not overly limiting in daily ADLs. No arm symptoms. Used to get daily TINOCO but they have subsided. - Pain Neck apin Pain Intensity (Out of 10): 3 Pain Intensity Range: 3, 6 - Objective Walks I and transfers I. c/s aROM 42 B rotation with ipsilateral pinch, 30 ext with middle pinch. 28 SB L and 20 R with pain R SB. reflexes bi and tri 2/3. Sensation UE WNL to gross light touch. Strength UE 4+/5. - c/s compression unless neck is sidetilted either direction, then pain. Posture is forward head and elevated scapular posture. UE AROM WNL. Repeated motion testing 04/11. protrusion 05/12 and into shoulder blades. retraction: PDM, B 02/09. c/s ret ext: W 03/11.increased motion to 55, increased rotation by 10-15 degrees. 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 Goal Time Frame: 4-6 Weeks Goal 2:: Patient feel 75% better with pain intermittent adn 1/10 at worst. Goal Time Frame: 4-6 Weeks Goal 3:: I appropr ex adn activity to manage condition. Goal Time Frame: 4-6 Weeks Goal 4:: Owestry less than 33% disability Goal Time Frame: 4-6 Weeks - Rehabilitation Potential Physical Therapy Diagnosis: cervical radicualopathya dn likely discal problems. Rehabilitation Potential: Fair - Anticipated Interventions Patient/Client Instruction: Educate patient on: Plan of Care For the Purpose of:: To decrease pain, To increase ROM, To improve nutrient delivery to tissue, To improve muscle performance and motor function, To improve ability of physical actions for home/community/work/leisure Therapeutic Exercise to Include: Strength training, Postural training, Flexibilty training, Neuromotor development, Passive ROM, Active ROM, Judi Exercises For the Purpose of:: To decrease pain, To increase ROM, To improve muscle performance and motor function, To increase tolerance to activity/condition/position, To improve ability of physical actions for home/community/work/leisure Manual Therapy Techniques to Include: Soft tissue mobilization For the Purpose of:: To decrease pain Thank you for the opportunity to evaluate your patient. For Medicare and Medicare HMO plans, please review the plan of care and approve it. It will need to be FAXED BACK to us at [phone] for Medicare purposes. For Medicare only, by signing this I certify the plan of care. Please let me know if there are questions or concerns regarding this plan of care. Physician Signature: Date:
--- NOTE | 2019-11-19 16:51 | HP.PTDCSUM ---
It has been my pleasure to treat ALLIE LYNN referred by POLLO Mayen, with the diagnosis of cervical radiculopathy for a total of 7 visit(s). Discharge Date: 11/19/19 Please see the following information for a summary of their discharge status. Subjective: Not progressing. feels good in therapy and after but starts moving around at home adn it comes back. HEP is pulling on it daily for strength. Does chin tucks and extension but does not seem to help her TINOCO. [place] are posterior. They are 5 out of 7 days. The intenisty is up to 05/12. Sleep isinterrupted still. Doctor f/u not scheduled yet. Aapril 3 will have skin tratment that will nto allow PT for a while afterwards. Wants back to doctor and MRI vs continued therapy. Neck apin Pain Intensity (Out of 10): 4 TINOCO Pain Intensity (Out of 10): 4 % Improvement: 20 Objective/Function: 42 ext AROM neck, 45 R rotation adn 55 L rotation. Movement of UE is good, . Posture is forward head and is afraid to look up into pain or retract into pain despite my education. OVERALL NOT MUCH SIGNIFICANT IMPROVEMENT AND APPROPRIATE TO GET BACK TO DOCTOR FOR NEXT MEDICAL STEP. 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 Goal Progress: did yesterday. Goal 2:: Patient feel 75% better with pain intermittent adn 1/10 at worst. Goal Progress: SLOW! Goal 3:: I appropr ex adn activity to manage condition. Goal Progress: Has HEP Goal 4:: Owestry less than 33% disability Goal Progress: Not Progressing Plan: d/c Discharge Comments: Pt to contact doctor for next medical step due to lack of acceptable progress in therapy. If there are questions or concerns regarding this patient's physical therapy, please feel free to call me at [phone]. Thank you for the referral of this patient. Sincerely, Quincy Zurita, DPT, OCS, CSCS
== END 2019-11-19 19:00 | disposition home or self-care (01) ==
LOC: PT 16:30
PROVIDERS: PCP Internal Medicine; Referring Provider Nurse Practitioner Family; Visit Provider Nurse Practitioner Family
DX: M47.812 Spondylosis without myelopathy or radiculopathy, cervical region (principal); M54.12 Radiculopathy, cervical region
CPT/HCPCS: 97110; 97140; 97162; 97164

== ENCOUNTER → 2020-04-04 12:18 | Outpatient (CLI) | payer MEDICARE, MEDICAID, SELFPAY ==
[2019-01-02 10:15] VITALS: BMI 31.2
--- NOTE | 2020-04-04 12:29 | MRI_ITS ---
STUDY: MRI RIGHT HIP REASON FOR EXAM: Female, 49 years old. Right hip pain, weakness for several years, nki. TECHNIQUE: Standardized fat and water weighted pulse sequences were obtained in all 3 orthogonal planes. COMPARISON: X-ray dated 10/20/2018. FINDINGS: Bilateral cystic adnexa. Bulky uterus. Remainder of intraabdominal/pelvic contents within normal limits. Normal neurovascular bundles. Small inguinal lymph nodes. No solid, cystic or lipomatous subcutaneous lesions. Small fat-containing umbilical hernia. Mild bilateral hip cartilage loss. No acute fracture. No acute dislocation. No acute bone destruction. Punctate left femoral head bone marrow edema/contusion (coronal image 16 series 6). Bilateral hip labrum intact. Bilateral capsular ligaments intact. No significant joint effusions. No bursitis. Mild bilateral gluteus medius/minimus tendinosis with low-grade partial tear of the right gluteus minimus tendon (axial image 12 and 13 series 7). Minimal bilateral hamstring tendinosis without tear. Normal iliopsoas tendons. Normal rectus femoris tendons. Normal adductor tendons. No focal muscle atrophy. Left paraspinal muscle edema (axial image 6 series 3). Mild pubic symphysis arthrosis. Normal sacroiliac joints. Mild lumbar spine arthrosis. MRI/Lower Ext Joint Only (Routine) IMPRESSION: Mild bilateral hip osteoarthritis with punctate left-sided bone marrow edema Mild bilateral gluteus medius/minimus tendinosis with low-grade partial-thickness right gluteus minimus tendon tear Mild bilateral hamstring tendinosis without tear Nonspecific left paraspinal muscle edema/strain Bulky uterus and bilateral cystic adnexa (statistically physiologic; consider nonemergent ultrasound evaluation) Electronically Signed: Quincy Burnett DO at 15:20 EDT Tel , Service support ,
== END ==
PROVIDERS: PCP Internal Medicine; Referring Provider Nurse Practitioner Family; Visit Provider Nurse Practitioner Family
DX: M25.551 Pain in right hip (principal)
CPT/HCPCS: 73721

== ENCOUNTER 2021-03-20 17:29 | Emergency (ER) | payer MEDICARE, MEDICAID, SELFPAY ==
[2019-01-02 10:15] VITALS: BMI 31.2
[2021-03-20 17:29] VITALS: BP 140/85; PULSE 108; RESP 19; TEMP 37.1; O2SAT 98; BMI 30.9
[2021-03-20 19:43] VITALS: BP 148/89; PULSE 98; RESP 14; O2SAT 98
--- NOTE | 2021-03-20 19:46 | ED.RN ---
LEGALLY BLIND UNABLE TO PERFORM
--- NOTE | 2021-03-20 19:54 | EDS_ITS ---
HPI History of Present Illness Chief Complaint: Eye Problem Informant: patient Onset/Context/Timing Location: Bilateral Eyes Onset: Month(s) (Over 1 month) Context: Sudden Onset Timing: Continuous Current Severity: Moderate Maximum Severity: Moderate Worsened by: Rubbing, burning after application of Vaseline Relieved by: Nothing Associated Symptoms Associated Symptoms - Eyes: Burning, Eyelid swelling and Itching; Negative for Crusting, Drainage, Foreign body sensation, Matting, Pain, Photophobia and Redness History of injury: No Narrative Narrative: Patient is a middle-aged woman who has problems with her vision. She presents because of swelling of her eyelids which is affecting her peripheral vision. She has loss of central vision. She has seen ophthalmology and has tried different regimens with no effect. She states now when she applies Vaseline it makes it worse. She took only one Benadryl pill because it made her significantly drowsy. She has taken Claritin with no effect. She is applied cortisone cream with no effect. She reports redness, swelling and itching. 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 in [place] PXE (pseudoxanthoma elasticum) Restless legs Home Medications timolol maleate 1 drp EACH EYE BID 12/07/15 [History Last Taken Unknown] aspirin 81 mg PO DAILY 01/17/17 [History Last Taken Unknown] atorvastatin 40 mg PO QHS 01/17/17 [History Last Taken Unknown] lisinopril-hydrochlorothiazide 1 ea PO DAILY 01/17/17 [History Last Taken Unknown] norethindrone ac-eth estradiol 1 ea PO DAILY 10/19/17 [History Last Taken Unknown] cyclobenzaprine 10 mg tablet 10 mg PO Q8H 10/29/17 [History Last Taken Unknown] trazodone 50 mg tablet 50 mg PO QHS PRN tab 10/20/18 [History Last Taken Unknown] diphenhydramine HCl [Benadryl] 50 mg PO QHS PRN PRN #7 capsule 11/29/18 [Rx Last Taken Unknown] metoclopramide HCl 10 mg PO QHS PRN PRN #7 tab 11/29/18 [Rx Last Taken Unknown] prednisone 10 mg PO UD #33 tab 03/20/21 [Rx Last Taken Unknown] Allergy/AdvReac Type Severity Reaction Status Date / Time hydrocodone bitartrate AdvReac Itching Verified 03/20/21 17:32 [From Vicodin] nitrofurantoin AdvReac Other Verified 03/20/21 17:32 [From Macrobid] nitrofurantoin AdvReac Other Verified 03/20/21 17:32 macrocrystalline [From Macrobid] propoxyphene AdvReac Other Verified 03/20/21 17:32 [From Darvocet-N] tramadol HCl [From Ultram] AdvReac Other Verified 03/20/21 17:32 Family History Father Lung cancer Mother COPD (chronic obstructive pulmonary disease) CVA (cerebral vascular accident) Son Myocardial infarction Other Breast cancer Ovarian cancer Surgical History S/P S/P right knee arthroscopy Social History (Updated 03/20/21 @ 19:[address] Juan Manuel Turpin MD) household members: none housing: house Smoking Status: Never smoker alcohol intake: current alcohol intake frequency: holidays/special occasions only substance use type: does not use ROS ROS ED Constitutional Constitutional ED: Denies chills, fever(s), subjective or sweats Eyes Eyes: Reports change in vision right (Due to swelling of the eyelid affecting her visual field) ENT ENT ED: Denies ear pain, rhinorrhea or sore throat Integumentary Reports rash Hematologic/Lymphatic Hematologic/Lymphatic: Denies easy bleeding or easy bruising Allergic/Immunologic Allergic/Immunologic ED: Denies mouth swelling, tongue swelling or urticaria EXAM Physical Exam Const Vital Signs: 03/20/21 17:29 03/20/21 19:43 Temperature 98.8 F Temperature Source Temporal Pulse Rate 108 H 98 Respiratory Rate 19 H 14 Blood Pressure 140/85 H 148/89 H Blood Pressure Mean 103 108 Pulse Ox 98 98 Oxygen Delivery Method Room Air Room Air Positive well nourished and well developed General Appearance ED: well developed and NAD HEENT HEENT Narrative: Face is symmetric. Ears are normal. Nares patent. atraumatic; Negative for tenderness Eyes General Eye ED: Negative for pale conjunctiva or scleral icterus Visual Field: central vision loss bilateral (Chronic) Alignment: alignment normal Eyelid: eyelids abnormal right upper eyelid and left upper eyelid Conjunctiva: conjunctiva normal Sclera: sclera normal Pupil: PERRL and accommodation reflex normal EOM: EOM abnormal Neck no lymphadenopathy, supple and no JVD Resp normal respiratory effort Cardio regular rate and regular rhythm Neuro oriented x3 and CN's II-XII intact bilaterally Sensorium / Orientation: alert Psych Mood & Affect: Negative for depressed Skin Skin Narrative: Is erythema of the upper eyelids bilaterally. Right greater than left. There is slight inflammation of the lashes. Rashes: rashes noted MDM MDM MDM Narrative Medical decision making narrative: Patient is describing allergic component. Will place on a burst of prednisone. She has an appointment see a retail custodial associate in April. She has an appointment to see her textile colorist dyer in 2 days. Discharge Plan Triage Chief Complaint: Eye Problem ED Provider: Juan Manuel Turpin Dx/Rx/DC Orders Clinical Impression: Pruritic erythematous rash, Blepharitis of both eyes Instructions: Treating Blepharitis: Self-Care, ED Blepharitis Prescriptions: New prednisone 10 MG tablet 10 mg PO UD Qty: 33 RF: 0 No Action cyclobenzaprine 10 mg tablet 10 mg PO Q8H RF: 0 trazodone 50 mg tablet 50 mg PO QHS PRN (Reason: insomnia) RF: 0 timolol maleate 1 DROP drops 1 drp EACH EYE BID RF: 0 atorvastatin 40 MG tablet 40 mg PO QHS RF: 0 lisinopril-hydrochlorothiazide 1 EACH tablet 1 ea PO DAILY RF: 0 aspirin 81 MG tablet,chewable 81 mg PO DAILY RF: 0 norethindrone ac-eth estradiol 1 EACH tablet 1 ea PO DAILY RF: 0 metoclopramide HCl 10 MG tablet 10 mg PO QHS PRN PRN (Reason: Headache) Qty: 7 RF: 0 diphenhydramine HCl [Banophen] 25 MG capsule 50 mg PO QHS PRN PRN (Reason: Headache) Qty: 7 RF: 0 Primary Care Provider: Ifeoma Mustafa Referrals: Ifeoma Mustafa MD [Primary Care Provider] - Activity Restrictions/Additional Instructions: 1. Keep appointment with textile colorist dyer 2. Keep schedule appointment with retail custodial associate Disposition Disposition: Home, Self Care
[2021-03-20] MEDS: predniSONE 20 MG Tablet 60 MG PO (20:22)
== END 2021-03-20 20:23 | disposition home or self-care (01) ==
LOC: ED 20:03
PROVIDERS: Emergency Provider Emergency Medicine; PCP Internal Medicine
DX: L53.9 Erythematous condition, unspecified (principal); H01.006 Unspecified blepharitis left eye, unspecified eyelid; H01.003 Unspecified blepharitis right eye, unspecified eyelid; I10 Essential (primary) hypertension; H54.8 Legal blindness, as defined in USA; M79.7 Fibromyalgia; G25.81 Restless legs syndrome
CPT/HCPCS: 99282

== ENCOUNTER 2021-09-10 12:20 | Emergency (ER) | payer MEDICARE, MEDICAID, SELFPAY ==
[2021-09-10 12:21] VITALS: BP 152/87; PULSE 95; RESP 18; TEMP 35.8; O2SAT 100; BMI 29.9
[2021-09-10 13:34] VITALS: BP 142/80; BP 151/88; BP 154/89; PULSE 85; PULSE 87; PULSE 88
[2021-09-10 13:40] LABS: Absolute Neutrophil Count 8.5 X10^3/uL (2.0-7.7); Basophil# 0.02 X10^3/uL; Basophil% 0.2 % (0-1); Differential Indicated SCAN CRITERIA MET; Eosinophil# 0.02 X10^3/uL; Eosinophils% 0.2 % (0-5); Hematocrit 41.3 % (37-47); Hemoglobin 13.5 g/dL (12.0-15.0); Lymphocyte % 6.3 % (19-41); Mean Corp Hgb Conc 32.7 g/dL (32-36); Mean Corpuscular Hgb 29.7 pg (27.0-32.0); Mean Corpuscular Volume 90.8 fL (81-99); Mean Platelet Vol. 10.1 fl (6.2-12.0); Monocyte# 0.39 X10^3/uL; Monocyte% 4.1 % (0-10); NRBC Flagged by Analyzer 0 % (0-5); Neutrophil % 88.9 % (47-70); POSITIVE DIFFERENTIAL YES; Platelet Count 354 K/mm3 (150-450); RBC Distribution Width CV 12.4 % (11.6-14.6); RBC Distribution Width SD 41.1 fl (35.1-43.9); Red Blood Count 4.55 M/mm3 (4.2-5.4); White Blood Count 9.6 K/mm3 (4.4-11.0)
[2021-09-10 14:03] LABS: Anion Gap 6 (5-15); BUN 23 mg/dL (7-18); BUN/Creat Ratio 26.9 RATIO (10-20); Calcium,Total 9.2 mg/dL (8.5-10.1); Chloride 104 mmol/L (98-107); Creatinine, Serum 0.86 mg/dL (0.55-1.02); EST Glomerular Filtration Rate 74 mL/min (>60); Est Glom Filt Rate - Afr Amer 90 mL/min (>60); Estimated Creatinine Clearance 54.96 ml/min; Glucose 104 mg/dL (74-106); Potassium 3.8 mmol/L (3.5-5.1); Sodium Level 140 mmol/L (136-145)
--- NOTE | 2021-09-10 14:16 | EDS_ITS ---
HPI History of Present Illness Chief Complaint: Dizziness Informant: patient Onset/Context/Timing Onset: Today Context: Sudden Onset Timing: Continuous Quality: Spinning Location: Head Worsened by: Movement Narrative Narrative: Patient with dizziness that began today. Patient states this feels similar to prior episodes of vertigo. Patient states she has scheduled eye surgery coming up and will be unable to follow-up for her eye surgery if she still has vertigo. Patient states she has some achiness in her head. Patient describes her dizziness as a spinning sensation. Patient states it is worse with certain movements. Patient admits to some nausea and vomiting. Patient denies any difficulty swallowing or difficulty speaking. Patient denies any ear pain or tinnitus. 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 [place] PXE (pseudoxanthoma elasticum) Restless legs Home Medications timolol maleate 1 drp EACH EYE BID 12/07/15 [History Last Taken Unknown] aspirin 81 mg PO DAILY 01/17/17 [History Last Taken Unknown] atorvastatin 40 mg PO QHS 01/17/17 [History Last Taken Unknown] lisinopril-hydrochlorothiazide 1 ea PO DAILY 01/17/17 [History Last Taken Unknown] norethindrone ac-eth estradiol 1 ea PO DAILY 10/19/17 [History Last Taken Unknown] cyclobenzaprine 10 mg tablet 10 mg PO Q8H 10/29/17 [History Last Taken Unknown] trazodone 50 mg tablet 50 mg PO QHS PRN tab 10/20/18 [History Last Taken Unknown] diphenhydramine HCl [Benadryl] 50 mg PO QHS PRN PRN #7 capsule 11/29/18 [Rx Last Taken Unknown] metoclopramide HCl 10 mg PO QHS PRN PRN #7 tab 11/29/18 [Rx Last Taken Unknown] prednisone 10 mg PO UD #33 tab 03/20/21 [Rx Last Taken Unknown] Allergy/AdvReac Type Severity Reaction Status Date / Time hydrocodone bitartrate AdvReac Itching Verified 09/10/21 12:22 [From Vicodin] nitrofurantoin AdvReac Other Verified 09/10/21 12:22 [From Macrobid] nitrofurantoin AdvReac Other Verified 09/10/21 12:22 macrocrystalline [From Macrobid] propoxyphene AdvReac Other Verified 09/10/21 12:22 [From Darvocet-N] tramadol HCl [From Ultram] AdvReac Other Verified 09/10/21 12:22 Family History Father Lung cancer Mother COPD (chronic obstructive pulmonary disease) CVA (cerebral vascular accident) Son Myocardial infarction Other Breast cancer Ovarian cancer Surgical History S/P S/P right knee arthroscopy Social History household members: none housing: house Smoking Status: Never smoker alcohol intake: current alcohol intake frequency: holidays/special occasions only substance use type: does not use ROS ROS ED Constitutional Constitutional ED: Denies chills or fever(s) Eyes Eyes: Denies blurry vision or change in vision ENT ENT ED: Denies rhinorrhea or sore throat Cardiovascular Cardiovascular: Denies chest pain or palpitations Respiratory/Chest Respiratory/Chest: Denies cough or dyspnea Gastrointestinal Gastrointestinal: Reports nausea and vomiting Genitourinary Genitourinary ED: Denies dysuria or hematuria Musculoskeletal Musculoskeletal: Reports neck pain; Denies back pain Integumentary Denies abscess or rash Neurologic Neurologic: Reports headache(s); Denies weakness Allergic/Immunologic Allergic/Immunologic ED: Denies mouth swelling or urticaria EXAM Physical Exam Const Vital Signs: 09/10/21 12:21 09/10/21 12:45 09/10/21 13:34 Temperature 96.4 F L Temperature Source Temporal Pulse Rate 95 Pulse Rate [Lying] 87 Pulse Rate [Sitting] 88 Pulse Rate [Standing] 85 Respiratory Rate 18 Respiratory Effort Normal Respiratory Pattern Normal Blood Pressure 152/87 H Blood Pressure [Lying] 142/80 H Blood Pressure [Sitting] 151/88 H Blood Pressure [Standing] 154/89 H Blood Pressure Mean 108 Blood Pressure Mean [Lying] 100 Blood Pressure Mean [Sitting] 109 Blood Pressure Mean [Standing] 110 Pulse Ox 100 Positive well nourished and well developed General Appearance ED: well developed HEENT Reports moist mucous membranes Eyes PERRL and EOMs intact bilaterally Eyes Narrative: There is no nystagmus noted. Neck supple and no JVD Resp normal respiratory effort and clear to auscultation bilaterally Cardio regular rate and regular rhythm GI non-tender Palpation: soft Neuro oriented x3, CN's II-XII intact bilaterally and no sensory deficits noted Neuro Narrative: Patient did have dizziness with turning her head to the left. Sensorium / Orientation: alert Motor Exam: strength 5/5 throughout Psych mental status grossly normal Skin no rashes or lesions noted MDM MDM MDM Narrative Medical decision making narrative: Orthostatic vital signs were obtained and were negative. CBC and basic metabolic profile were obtained and were negative. Carl maneuvers were used. Patient felt better after this. Patient states her dizziness has resolved. Patient was instructed to get plenty of rest. Patient was instructed to follow-up with her primary care physician in 5 to 7 days. Patient understands and is agreeable with the plan. All questions were answered. Lab Data Attestation: I reviewed the patient's lab results. Labs: Laboratory Results - last 24 hr 09/10/21 09/10/21 13:30 13:30 WBC 9.6 RBC 4.55 Hgb 13.5 Hct 41.3 MCV 90.8 MCH 29.7 MCHC 32.7 RDW Std Deviation 41.1 RDW Coeff of Roderick 12.4 Plt Count 354 MPV 10.1 Immature Gran % (Auto) 0.300 Neut % (Auto) 88.9 H Lymph % (Auto) 6.3 L Ford % (Auto) 4.1 Eos % (Auto) 0.2 Baso % (Auto) 0.2 Absolute Neuts (auto) 8.5 H Absolute Lymphs (auto) 0.60 L Nucleated RBC % 0 Sodium 140 Potassium 3.8 Chloride 104 Carbon Dioxide 30.0 Anion Gap 6 BUN 23 H Creatinine 0.86 Estim Creat Clear Calc 54.96 Est GFR (MDRD) Af Amer 90 Est GFR (MDRD) Non-Af 74 BUN/Creatinine Ratio 26.9 H Glucose 104 Calcium 9.2 Discharge Plan Triage Chief Complaint: Dizziness ED Provider: Quincy Jimenez Dx/Rx/DC Orders Clinical Impression: Vertigo Instructions: ED BPV Vertigo Prescriptions: No Action cyclobenzaprine 10 mg tablet 10 mg PO Q8H RF: 0 trazodone 50 mg tablet 50 mg PO QHS PRN (Reason: insomnia) RF: 0 timolol maleate 1 DROP drops 1 drp EACH EYE BID RF: 0 atorvastatin 40 MG tablet 40 mg PO QHS RF: 0 lisinopril-hydrochlorothiazide 1 EACH tablet 1 ea PO DAILY RF: 0 aspirin 81 MG tablet,chewable 81 mg PO DAILY RF: 0 norethindrone ac-eth estradiol 1 EACH tablet 1 ea PO DAILY RF: 0 metoclopramide HCl 10 MG tablet 10 mg PO QHS PRN PRN (Reason: Headache) Qty: 7 RF: 0 diphenhydramine HCl [Banophen] 25 MG capsule 50 mg PO QHS PRN PRN (Reason: Headache) Qty: 7 RF: 0 prednisone 10 MG tablet 10 mg PO UD Qty: 33 RF: 0 Primary Care Provider: Ifeoma Mustafa Referrals: Ifeoma Mustafa MD [Primary Care Provider] - 3-5 Days Disposition Disposition: Home, Self Care
[2021-09-10 14:40] VITALS: BP 140/89; PULSE 81; RESP 16; O2SAT 99
== END 2021-09-10 14:41 | disposition home or self-care (01) ==
PROVIDERS: Emergency Provider Emergency Medicine; PCP Internal Medicine; Visit Provider Emergency Medicine
DX: R42 Dizziness and giddiness (principal); I10 Essential (primary) hypertension; M79.7 Fibromyalgia; H54.8 Legal blindness, as defined in USA; Z79.82 Long term (current) use of aspirin; Z79.899 Other long term (current) drug therapy
CPT/HCPCS: 80048; 85025; 99283

== ENCOUNTER 2021-11-20 16:22 | Emergency (ER) | payer MEDICARE, MEDICAID, SELFPAY ==
[2021-11-20 16:22] VITALS: BP 156/93; PULSE 102; RESP 16; TEMP 36.4; O2SAT 98; BMI 30.2
[2021-11-20] MEDS: Meclizine HCl 25 MG Tablet PO (18:03)
--- NOTE | 2021-11-20 18:18 | EDS_ITS ---
HPI <Dr. Mary Cormier MD - Last Filed: 11/21/21 01:02> History of Present Illness Chief Complaint: Dizziness <BRYANNA VALLE - Last Filed: 11/20/21 18:40> History of Present Illness Informant: patient Onset/Context/Timing Onset: Today Context: Sudden Onset (This morning) Timing: Continuous Location: Lt side of head Current Severity: Moderate Maximum Severity: Moderate Worsened by: Bending down Narrative Narrative: Patient presents secondary to vertigo that began at 330 this morning, when she turned to the right to reach for her alarm clock. Time patient had nausea. Patient describes the feeling as I spinning, with left side of head worse than right. Patient has had recent ED visit for same, and Carl maneuver was successful done at that time. Patient attempted this at home but was unsuccessful. Patient presents today specifically for this. Prior similar symptoms: Yes PFSH <Dr. 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 [place] PXE (pseudoxanthoma elasticum) Restless legs Home Medications timolol maleate 1 drp EACH EYE BID 12/07/15 [History Last Taken Unknown] aspirin 81 mg PO DAILY 01/17/17 [History Last Taken Unknown] atorvastatin 40 mg PO QHS 01/17/17 [History Last Taken Unknown] lisinopril-hydrochlorothiazide 1 ea PO DAILY 01/17/17 [History Last Taken Unknown] norethindrone ac-eth estradiol 1 ea PO DAILY 10/19/17 [History Last Taken Unknown] cyclobenzaprine 10 mg tablet 10 mg PO Q8H 10/29/17 [History Last Taken Unknown] trazodone 50 mg tablet 50 mg PO QHS PRN tab 10/20/18 [History Last Taken Unknown] meclizine 25 mg PO TID PRN #20 tab 11/20/21 [Rx Last Taken Unknown] meloxicam 11/20/21 [History Last Taken Unknown] omeprazole 11/20/21 [History Last Taken Unknown] Allergy/AdvReac Type Severity Reaction Status Date / Time hydrocodone bitartrate AdvReac Itching Verified 11/20/21 16:24 [From Vicodin] nitrofurantoin AdvReac Other Verified 11/20/21 16:24 [From Macrobid] nitrofurantoin AdvReac Other Verified 11/20/21 16:24 macrocrystalline [From Macrobid] propoxyphene AdvReac Other Verified 11/20/21 16:24 [From Darvocet-N] tramadol HCl [From Ultram] AdvReac Other Verified 11/20/21 16:24 Family History Father Lung cancer Mother COPD (chronic obstructive pulmonary disease) CVA (cerebral vascular accident) Son Myocardial infarction Other Breast cancer Ovarian cancer Surgical History S/P S/P right knee arthroscopy Status post glaucoma surgery Social History household members: none housing: house Smoking Status: Never smoker alcohol intake: current alcohol intake frequency: holidays/special occasions only substance use type: does not use <BRYANNA VALLE - Last Filed: 11/20/21 18:40> ROS ED Constitutional Constitutional ED: Denies chills, fever(s) or sweats Eyes Eyes: Reports as per HPI, blurry vision, eye pain and other Details: Patient reports sensitivity to light recently following eye surgery in September and October, otherwise vision at baseline. ENT ENT ED: Denies ear pain or sore throat Cardiovascular Cardiovascular: Denies chest pain or palpitations Respiratory/Chest Respiratory/Chest: Denies cough or dyspnea Gastrointestinal Gastrointestinal: Reports nausea; Denies abdominal pain or vomiting Genitourinary Genitourinary ED: Denies dysuria or hematuria Musculoskeletal Musculoskeletal: Denies myalgias Integumentary Denies rash Neurologic Neurologic: Denies headache(s), paresthesias or weakness Psychiatric Psychiatric: Denies anxiety or depression EXAM <Dr. Mary Cormier MD - Last Filed: 11/21/21 01:02> Physical Exam Const Vital Signs: 11/20/21 16:22 11/20/21 17:09 Temperature 97.6 F L Temperature Source Temporal Pulse Rate 102 H Respiratory Rate 16 Respiratory Effort Normal Respiratory Pattern Normal Blood Pressure 156/93 H Blood Pressure Mean 114 Pulse Ox 98 Oxygen Delivery Method Room Air <BRYANNA VALLE - Last Filed: 11/20/21 18:40> Physical Exam Const Vital Signs: 11/20/21 16:22 11/20/21 17:09 Temperature 97.6 F L Temperature Source Temporal Pulse Rate 102 H Respiratory Rate 16 Respiratory Effort Normal Respiratory Pattern Normal Blood Pressure 156/93 H Blood Pressure Mean 114 Pulse Ox 98 Oxygen Delivery Method Room Air Positive well nourished and well developed General Appearance ED: well developed HEENT Reports moist mucous membranes Negative for trauma or tenderness Eyes PERRL and EOMs intact bilaterally Visual Field: central vision loss Conjunctiva: conjunctiva normal Sclera: sclera normal EOM: nystagmus horizontal Neck No no lymphadenopathy and supple General: Negative for tenderness Chest Wall inspection of chest normal and palpation of chest normal Resp normal respiratory effort and clear to auscultation bilaterally Cardio regular rate, regular rhythm and no murmurs GI normal to inspection, nondistended, normoactive bowel sounds Palpation: soft Back/Spine no CVA tenderness Back/Spine Narrative: Patient mildly tender on palpation of C-spine. Reports chronic neck and back pain Cervical Spine: cervical spine tenderness Extremity normal to inspection General Extremety ED: Negative for edema or tenderness General Extremity: Negative for edema Neuro oriented x3 Sensorium / Orientation: alert Motor Exam: strength 5/5 throughout Psych mental status grossly normal Skin no rashes or lesions noted [facility] <Dr. Mary Cormier MD - Last Filed: 11/21/21 01:02> [facility] Treatment and Re-Evaluation Narrative: Patient seen and evaluated with [employer] student. I independently saw the patient and performed my own history and physical as well as exam. I was personally involved in all decision-making regarding testing and treatment as well as interpretation of test results. Patient present secondary to recurrent vertigo. Patient reports turning in bed earlier this morning and developing vertigo. She has had similar symptoms in the past. She has poor vision at baseline and lives alone. She states in light of this she typically will try to perform the Carl maneuver to resolve her symptoms quickly. She tried the Carl maneuver at home today without improvement. She did recently have eye surgery. Patient sitting upright in bed no acute distress. Head and neck examination unremarkable. Heart is regular rate and rhythm. Lung sounds are clear. Abdomen is soft and nontender. Carl maneuver was performed at bedside. Following this patient does have significant improvement in her symptoms but not completely resolved. She was given a p.o. dose of Antivert. As the nurse went in to give the Antivert emmanuelle patten asked when she could call for a ride if she felt better and was ready for discharge. Her back to reevaluate her and she did note significant improvement. Prescription for Antivert was written that she can try at home as needed. <BRYANNA VALLE - Last Filed: 11/20/21 18:40> [facility] MDM Narrative Medical decision making narrative: Cral maneuver performed by Dr. Cormier. Meclizine given. Treatment and Re-Evaluation Narrative: On reevaluation, patient reports improvement in vertigo and is ready to call for a ride. Patient aware to follow-up with primary care physician as needed. Return instructions given. Discharge Plan Triage Chief Complaint: Dizziness ED Provider: Mary Cormier Dx/Rx/DC Orders Clinical Impression: Vertigo Instructions: ED BPV Vertigo Prescriptions: New meclizine 25 mg tablet 25 mg PO TID PRN (Reason: vertigo) Qty: 20 RF: 0 No Action cyclobenzaprine 10 mg tablet 10 mg PO Q8H RF: 0 trazodone 50 mg tablet 50 mg PO QHS PRN (Reason: insomnia) RF: 0 timolol maleate 1 DROP drops 1 drp EACH EYE BID RF: 0 atorvastatin 40 MG tablet 40 mg PO QHS RF: 0 lisinopril-hydrochlorothiazide 1 EACH tablet 1 ea PO DAILY RF: 0 aspirin 81 MG tablet,chewable 81 mg PO DAILY RF: 0 norethindrone ac-eth estradiol 1 EACH tablet 1 ea PO DAILY RF: 0 meloxicam 15 mg tablet RF: 0 omeprazole 20 mg capsule,delayed release(DR/EC) RF: 0 Primary Care Provider: Ifeoma Mustafa Referrals: Ifeoma Mustafa MD [Primary Care Provider] - 3-5 Days if not improving Disposition Disposition: Home, Self Care Discharge Date/Time: 11/20/21 18:23
== END 2021-11-20 18:23 | disposition home or self-care (01) ==
PROVIDERS: Emergency Provider Emergency Medicine; PCP Internal Medicine; Visit Provider Emergency Medicine
DX: R42 Dizziness and giddiness (principal)
CPT/HCPCS: 99283

== ENCOUNTER 2023-01-01 11:00 | Outpatient (RCR) | payer MEDICARE, MEDICAID, SELFPAY ==
--- NOTE | 2022-11-29 14:36 | HP.OTEVAL ---
Patient's Visit Information ALLIE LYNN is a 52 year old F, referred to Occupational Therapy by TORI PATINO, with a diagnosis of right RF trigger finger and left MF trigger finger. Date of Evaluation: 11/29/22 Occupational Therapist: Sharifa Morrissey, DELLR/Yonathan, CHT - Subjective This 52 year old female was seen for OT eval with dx of trigger finger bilateral MF. pt underwent trigger finger release on 11/07/22. pt states she had issues about a year and decided to have sx. PT arrives today as she is having pain issues and limited ROM preventing her from using her hands with ADLs and IADLS. pt is legally blind and will use hands to ismael her distance from things. pt is right handed - Pain bilateral hands 6 Pain Intensity Range: 6 - ROM PIP: right RF -15/100 left -20/75 ROM Comments: pt demo with scar adhesions - Strength Contaminated Land Consultant: right 35# left 30# - Sensation Sensation Comments: denies - Quick DASH-Disab of Arm,Shoulder& Hand Quick DASH Score: 70.4525 - Goals Comment: trigger finger release Goal:Daily scar massage when approriate: Yes Goal:ROM equal to unaffected hand: Yes Goal:Contaminated Land Consultant/Pinch strength at least 75% of unaffected hand: Yes Goal:No pain with affected hand use: Yes Goal:Full use of affected hand in daily activities including: Yes - Rehabilitation General Assessment: pt demo with scar adhesions limiting full ROM and scar sensitivity limiting use of bilateral hand with ADLs and IADLS. pt would benefit from skilled OT services 2xweek for 4 weeks to return pt to her PLOF. Today therapist ed. pt on scar desensitization marce. pt demo understanding- therpist also ed. pt on POC of ROM, and PRE- pt demo understanding and agrees to POC. Rehabilitation Potential: Good - Anticipated Interventions A/AAROM/PROM, Strengthening, Scar Care, Triggerpoint Release, Desensitization, Modalities, Fine Motor Coord/Bony, Home Program - Visit Plan Frequency: 2x /Week Duration: 4 Weeks TEXT: Thank you for the opportunity to evaluate your patient. For Medicare and Medicare HMO plans, please review the plan of care and approve it. It will need to be FAXED BACK to us at [phone] for Medicare purposes. Please let me know if there are questions or concerns regarding this plan of care. Physician Signature: Date:
--- NOTE | 2023-01-01 12:18 | HP.OTDCSUM_ITS ---
It has been my pleasure to treat ALLIE LYNN under orders from TORI PATINO, for the diagnosis of right RF trigger finger and left MF trigger finger for a total of 4 visit(s). Please see the following information for a summary of their discharge status. % Improvement: 80 Objective/Function: right manufacturing engineering director strength 50#. left manufacturing engineering director strength 40# (US completed previous to manufacturing engineering director). right RF PIP -5/45. left MF PIP -15/50 Patient Goals: Regain Mobility, Regain Strength, Decrease Pain, Use Hand/Wrist/Arm Normally Again Goal:Daily scar massage when approriate: Yes Goal:ROM equal to unaffected hand: Yes Goal:Data Sciences Director/Pinch strength at least 75% of unaffected hand: Yes Goal:No pain with affected hand use: Yes Goal:Full use of affected hand in daily activities including: Yes Plan: Continue HEP; AROM of hands. Last appt today. D/C Discharge Comments: pt was seen for 4 OT sessions following trigger finger sx. pt continues to have scar adhesions that limits tight composite fist. Pt demo understanding of time it takes to allow for full recovery. pt agrees to D/c with HEP. If there are questions or concerns regarding this patient's occupational therapy, please fell free to call me at [phone]. Thank you for the referral of this patient. Sincerely, Sharifa Morrissey, OTR/L, CHT
== END 2023-01-01 19:00 | disposition home or self-care (01) ==
LOC: OT 11:00
PROVIDERS: PCP Internal Medicine
DX: M65.341 Trigger finger, right ring finger (principal); M65.332 Trigger finger, left middle finger
CPT/HCPCS: 97035; 97110; 97140; 97166

== ENCOUNTER → 2023-12-04 | Outpatient (CLI) | payer MEDICARE, MEDICAID, SELFPAY ==
--- NOTE | 2023-12-04 12:26 | MRI_ITS ---
STUDY: MRI RIGHT SHOULDER REASON FOR EXAM: Female, 53 years old. Pain anterior, s/p lifting injury, painful with motion x 2 months. TECHNIQUE: Standardized fat and water weighted pulse sequences were obtained in all 3 orthogonal planes. COMPARISON: Right shoulder radiographs dated 11/06/2023. FINDINGS: There is supraspinatus, infraspinatus, and subscapularis tendinosis with a linear interstitial/delaminating tear of the infraspinatus tendon (coronal T2 series 6 images 8-10). Normal teres minor tendon. Normal supraspinatus muscle. Normal infraspinatus muscle. Normal subscapularis muscle. Normal teres minor muscle. Normal glenohumeral articulation. Normal humeral head and visualized proximal humerus. Normal biceps labral complex. Normal intracapsular long biceps tendon. Normal labrum. Normal capsulo-ligamentous complex. Normal rotator interval. There is mild acromioclavicular arthrosis. There is a Type II morphology (curved), with a neutral orientation. There is no subacromial-subdeltoid bursal fluid. Normal visualized coracohumeral and coracoacromial ligaments. Normal quadrilateral space. Normal axillary space. Normal deltoid muscle. Normal trapezius muscle. MRI/Upper Ext Joint Only(Routine) IMPRESSION: Supraspinatus, infraspinatus, and subscapularis tendinosis without a full-thickness rotator cuff tear. Mild acromioclavicular arthrosis. Electronically Signed: Marcelo Grant MD at 14:31 EDT ,
== END | disposition home or self-care (01) ==
PROVIDERS: PCP Internal Medicine; Referring Provider Orthopaedic Surgery; Visit Provider Orthopaedic Surgery
DX: S46.001A Unspecified injury of muscle(s) and tendon(s) of the rotator cuff of right shoulder, initial encounter (principal)
CPT/HCPCS: 73221

== ENCOUNTER → 2024-07-22 | Outpatient (CLI) | payer MEDICARE, MEDICAID, SELFPAY | END | disposition home or self-care (01) | LOC: SL 20:31 | PROVIDERS: PCP Internal Medicine; Referring Provider Internal Medicine; Visit Provider Internal Medicine | DX: G47.33 Obstructive sleep apnea (adult) (pediatric) (principal) | CPT/HCPCS: 95810 ==

== ENCOUNTER → 2024-11-24 | Outpatient (CLI) | payer MEDICARE, MEDICAID, SELFPAY ==
--- NOTE | 2024-11-24 16:21 | RAD_ITS ---
PROCEDURE: HIP MIN 2 VIEWS (PORTABLE) 11/24/2024 REASON FOR EXAM: LEFT HIP PAIN VERSUS RADICULAR SYMPTOMS TECHNIQUE: 2 views of each hip. COMPARISON: None FINDINGS: Two views of the left hip demonstrate degenerative changes. There are no fractures or dislocations. Arteriosclerotic vascular disease of the vessels in the groin region are noted. Soft tissues are grossly unremarkable RAD/Hip Min 2 Views (Portable) IMPRESSION: Degenerative changes left hip. Arteriosclerotic vascular disease of the vessels of the left groin region. Reading Location: [id number]
== END | disposition home or self-care (01) ==
LOC: MTRAD 16:19
PROVIDERS: PCP Internal Medicine; Referring Provider Clinical Nurse Specialist Adult Health; Visit Provider Clinical Nurse Specialist Adult Health
DX: M16.12 Unilateral primary osteoarthritis, left hip (principal)
CPT/HCPCS: 73502

== ENCOUNTER → 2025-05-07 | Outpatient (CLI) | payer MEDICARE, MEDICAID, SELFPAY ==
--- NOTE | 2025-05-07 16:52 | MRI_ITS ---
PROCEDURE: SPINE LUMBAR (ROUTINE) 05/07/2025 REASON FOR EXAM: LUMBAR RADICULOPATHY TECHNIQUE: Procedure Code: MRISPL Modality: MR Procedure: SPINE LUMBAR (ROUTINE) COMPARISON: 02/13/2019 FINDINGS: The vertebral bodies of normal height. 5 lumbar type vertebra are present.. No anterior or retrolisthesis. Mild scoliosis. There is no normal abnormal marrow signal detected. The spinal cord ends normally at T12-L1. Paraspinal soft tissues are normal without any retroperitoneal lymphadenopathy or mass. L1-2: Central protrusion indenting the thecal sac. Facet arthropathy and ligamentum flavum hypertrophy. There is mild central stenosis. No foraminal encroachment. L2-3: Mild disk bulge. L3-4: Diffuse disc desiccation loss of disc space height. Diffuse bulge. Facet arthropathy ligamentum flavum hypertrophy. Moderate central stenosis. There is bilateral foraminal encroachment more so on the right than the left with mass effect on the exiting right L3 nerve. L4-5: Diffuse disc bulge. Severe facet arthropathy and ligamentum flavum redundancy with severe central stenosis. Bilateral foraminal encroachment more so on the left than the right with mass effect on the exiting left L4 nerve. L5-S1: Mild disc desiccation. No central protrusion. No foraminal stenosis. Sacrum: Unremarkable MRI/Spine Lumbar (Routine) IMPRESSION: Since the previous examination there has been progression of disc disease facet arthropathy and central protrusion at L3-4 and L4-5 with right foraminal stenosis at L3-4 and left foraminal stenosis at L4-5 both of which appear new. There is corresponding mass effect on exiting nerve roots. Stable degenerative disc bulge and central protrusion at L1-2 with associated c entral stenosis. Reading Location: [id number]
== END | disposition home or self-care (01) ==
LOC: MRI 16:39
PROVIDERS: PCP Internal Medicine; Referring Provider Orthopaedic Surgery Orthopaedic Surgery of the Spine; Visit Provider Orthopaedic Surgery Orthopaedic Surgery of the Spine
DX: M43.10 Spondylolisthesis, site unspecified (principal); M54.16 Radiculopathy, lumbar region
CPT/HCPCS: 72148

== ENCOUNTER 2025-05-27 17:05 | Emergency (ER) | payer MEDICARE, MEDICAID, SELFPAY ==
[2025-05-27 17:07] VITALS: BP 119/75; PULSE 78; RESP 18; TEMP 36.1; O2SAT 98; BMI 27.6
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
--- OUTSIDE RECORDS SUMMARY | 2025-05-27 19:16 | XMS RPT_ITS | CCD ---
Author Organization [facility] Care Team Providers Care Dietitian Teaching Name Role Phone Ifeoma Davis MD Primary Care Provider STALKER, WOLF Referring Unavailable SUSAN, IFEOMA Primary Care Unavailable STALKER, WOLF Referring Unavailable IFEOMA DAVIS Primary Care Unavailable STALKER, WOLF Referring Unavailable IFEOMA DAVIS Primary Care Unavailable Ifeoma Davis MD Primary Care Provider JONATHON EUGENE Admitting Unavailable JONATHON EUGENE Attending Unavailable IFEOMA DAVIS Primary Care Unavailable MASSIMO ROBERTS Admitting Unavailable MASSIMO ROBERTS Attending Unavailable IFEOMA DAVIS Primary Care Unavailable Dr. Ifeoma Davis Primary Care Provider Dr. Ifeoma Davis Referring Provider Dr. Phillip Pozo Attending Provider Dr. 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 Ifeoma Davis MD Primary Care Provider Dr. Edgar Beltran MD Attending Provider NP. Allie Prakash Attending Provider NP. Allie Prakash Referring Provider Virginia Avalos PA-C Unavailable [phone] Domitila Knapp PA-C Unavailable THORPE, KIMBERLEY Referring Unavailable GANTA, IFEOMA Primary Care Unavailable Dr. Ifeoma Davis MD Referring Provider Dr. Phillip Pozo DO Attending Provider Dr. Ifeoma Davis MD Primary Care Provider Dr. Ifeoma Davis MD Referring Provider Dr. Phillip Pozo DO Attending Provider Ruby CORREIA, Dr. Hernández Attending Provider Rakesh CORREIA, Dr. Rodriguez Attending Provider GANTA, IFEOMA Primary Care Unavailable JANET LOWERY Attending Unavailable ANKUR CURTIS Referring Unavaila ble GANTA, IFEOMA Primary Care Unavailable GANTA, IFEOMA Primary Care Unavailable CALLI DUVALL Attending Unavailable GANTA, IFEOMA Primary Care Unavailable GANTA, IFEOMA Attending Unavailable GANTA, IFEOMA Primary Care Unavailable GANTA, IFEOMA Referring Unavailable GANTA, IFEOMA Primary Care Unavailable GANTA, IFEOMA Attending Unavailable GANTA, IFEOMA Primary Care Unavailable GANTA, IFEOMA Primary Care Unavailable EMILY CHAPARRO Referring Unavailable GANTA, IFEOMA Primary Care Unavailable AISLINN REYES Attending Unavailable GANTA, IFEOMA Primary Care Unavailable ADRIANA LUND Attending Unavailabl e GANTA, IFEOMA Primary Care Unavailable MICHELLE CHIN Attending Unavailable GANTA, IFEOMA Primary Care Unavailable HELDER, DESTINEY Attending Unavailable GANTA, IFEOMA Primary Care Unavailable ADRIANA LUND Attending Unavailabl e ADRIANA LUND Admitting Unavailabl e GANTA, IFEOMA Primary Care Unavailable OLDER, DAVID Referring Unavailable GANTA, IFEOMA Primary Care Unavailable GANTA, IFEOMA Primary Care Unavailable GANTA, IFEOMA Referring Unavailable GANTA, IFEOMA Primary Care Unavailable OLDER, DAVID Attending Unavailable GANTA, IFEOMA Primary Care Unavailable GANTA, IFEOMA Primary Care Unavailable GANTA, IFEOMA Attending Unavailable GANTA, IFEOMA Primary Care Unavailable HELDER, DESTINEY Referring Unavailable CYNTHIA RAMOS Attending Unavailable SELF Referring Unavailable GANTA, IFEOMA Primary Care Unavailable GANTA, IFEOMA Attending Unavailable GANTA, IFEOMA Primary Care Unavailable GANTA, IFEOMA Primary Care Unavailable GANTA, IFEOMA Attending Unavailable SELF Referring Unavailable GANTA, IFEOMA Primary Care Unavailable CYNTHIA RAMOS Attending Unavailable Borruso, Phillip Attending Unavailable Ganta, Ifeoma Referring Unavailable Ganta, Ifeoma Primary Care Unavailable Borruso, Phillip Attending Unavailable Ganta, Ifeoma Referring Unavailable Ganta, Ifeoma Primary Care Unavailable Ruby, [place] Attending Unavailable Ganta, Ifeoma Primary Care Unavailable Ganta, Ifeoma Referring Unavailable Ganta, Ifeoma Primary Care Unavailable Cameron, Michael Attending Unavailable Ganta, Ifeoma Primary Care Unavailable Ruby, [place] Attending Unavailable Cameron, Michael Referring Unavailable Ganta, Ifeoma Primary Care Unavailable Cameron, Michael Attending Unavailable Ganta, Ifeoma Primary Care Unavailable Ganta, Ifeoma Attending Unavailable Ganta, Ifeoma Referring Unavailable Ganta, Ifeoma Primary Care Unavailable Girdler, Allie Attending Unavailable Olinda, Allie Referring Unavailable Ganta, Ifeoma Primary Care Unavailable Ruby, Edgar Attending Unavailable Ruby, [place] Attending Unavailable Ganta, Ifeoma Primary Care Unavailable Allergies Allergy Classification Reported Allergen(s) Allergy Type Date of Onset Reaction(s) Facility Acetaminophen / HYDROcodone (1 source) Acetaminophen / HYDROcodone Drug Allergy 04-28-20 12 Itching [facility] Nitrofurantoin (1 source) Nitrofurantoin Drug Allergy 03-05-20 Other: See Comments [facility] Opioid Agonists (4 sources) HYDROcodone Drug Allergy 03-12-20 06 Itching, Other: See Comments, Vomiting [facility] (20 sources) Acetaminophen / HYDROcodone; Translations: [HYDROCODONE-ACETA MINOPHEN] Drug Allergy 04-28-20 12 Itching [facility] Work Phone: (20 sources) HYDROcodone; Translations: [HYDROCODONE BITARTRATE] Drug Allergy 10-19-19 18 Itching [facility] (20 sources) Morphinan opioid; Translations: [OPIOIDS - MORPHINE ANALOGUES] Drug Allergy 03-05-20 20 Itching [facility] (20 sources) Nitrofurantoin; Translations: [NITROFURANTOIN] Drug Allergy 03-05-20 Other: See Comments [facility] (20 sources) Propoxyphene; Translations: [PROPOXYPHENE] Drug Allergy 03-05-20 Other: See Comments [facility] (20 sources) traMADol; Translations: [TRAMADOL] Drug Allergy 03-05-20 Other: See Comments [facility] (20 sources) traMADol; Translations: [TRAMADOL HCL] Drug Allergy 03-12-20 06 Vomiting [facility] (20 sources) Propoxyphene N-Acetaminophen; Translations: [PROPOXYPHENE N-ACETAMINOPHEN] Drug Intolerance 04-28-20 12 Mental Status Change [facility] Work Phone: (9 sources) nitrofurantoin macrocrystalline; Translations: [nitrofurantoin macrocrystalline] Propensity to adverse reactions 11-21-19 22 Other [facility] (1 source) HYDROcodone Drug Allergy 04-16-20 [facility] (1 source) Nitrofurantoin Drug Allergy 04-16-20 [facility] (1 source) Propoxyphene Drug Allergy 04-16-20 [facility] (1 source) traMADol Drug Allergy 04-16-20 [facility] Medications Current Medications Medication Drug Class(es) Dates Sig (Normalized) Sig (Original) acetaminophen 325 mg / oxyCODONE hydrochloride 5 mg oral tablet (17 sources) Opioid Agonist Start: 03-10-2025 Oxycodone-Acetamin ophen 5-325 mg tablet Active 0.5 - 1 {tbl} PO THREE TIMES A DAY as needed for pain 0 March 10, 2025 12:00am Start: 02-24-2025 End: 03-24-2025 oxyCODONE-acetaminophen (PER COCET) 5-325 mg tablet Take 1 tablet by mouth as directed. 02/24/2025 03/24/2025 Discontinued Start: 10-08-2024 End: 12-29-2024 oxyCODONE-acetaminophen (PER COCET) 5-325 mg tablet Take by mouth. 10/08/2024 12/29/2024 Discontinued amLODIPine 2.5 mg oral tablet (20 sources) Dihydropyridine Calcium Channel Agustin Start: 09-29-2024 End: 11-03-2024 take 1 tablet by mouth once daily amLODIPine (NORVASC) 2.5 mg tablet Take 1 tablet by mouth once daily. 30 tablet 11 11/03/2024 Active amoxicillin 875 mg / clavulanate 125 mg oral tablet (4 sources) Penicillin-class Antibacterial Start: 06-28-2022 End: 07-05-2022 take 1 tablet by mouth twice daily amoxicillin-clavula varghese acid (AUGMENTIN) 875-125 mg per tablet Take 1 tablet by mouth twice daily for 7 days. 14 tablet 0 06/28/2022 07/05/2022 Active Comment on above: Take 1 tablet by porfirio th twice daily for 7 days. atorvastatin 40 mg oral tablet (20 sources) HMG-CoA Reductase Inhibitor Start: 01-17-2017 End: 12-23-2024 take 1 tablet by mouth once daily atorvastatin (LIPITOR) 40 mg tablet Indications: Mixed hyperlipidemia Take 1 tablet by mouth once daily. 90 tablet 3 12/23/2024 Active Comment on above: Take 1 tablet by porfirio th once daily. azithromycin 250 mg oral tablet (9 sources) Macrolide Antimicrobial Start: 04-11-2025 azithromycin (ZITHROMAX Z-JEANINE) 250 mg tablet 2 tablets by mouth first day then 1 tablet the next 4 days 6 tablet 04/11/2025 Active Start: 11-18-2023 End: 11-23-2023 azithromycin (ZITHROMAX Z-PA K) 250 mg tablet Indications: Bacterial sinusitis Take 2 tablets day one, then, 1 tablet daily until gone. 6 tablet 0 11/18/2023 11/23/2023 Active Start: 10-03-2022 End: 10-08-2022 azithromycin (ZITHROMAX Z-PA K) 250 mg tablet Take 2 tablets day one, then, 1 tablet daily until gone. 6 tablet 0 10/03/2022 10/08/2022 Active Start: 07-04-2022 End: 07-09-2022 azithromycin (ZITHROMAX Z-PA K) 250 mg tablet Take 2 tablets day one, then, 1 tablet daily until gone. 6 tablet 0 07/04/2022 07/09/2022 Active Comment on above: Take 2 tablets day o ne, then, 1 tablet daily until gone. benoxinate hydrochloride 4 mg/ml / fluorescein sodium 2.5 mg/ml ophthalmic solution (1 source) Diagnostic Dye Start: 2 End: 2 fluorescein-benoxin ate 0.25-0.4 % 1 Drop (FLURESS) benzonatate 100 mg oral capsule (20 sources) Non-narcotic Antitussive Start: End: take 1 capsule by mouth every eight hours as needed benzonatate (TESSALON PERLE) 100 mg capsule Take 1 capsule by mouth three times a day as needed for cough for up to 7 days. 21 capsule 04/11/2025 04/18/2025 Active Start: 06-28-2022 End: 12-10-2022 take 1 capsule by mouth every eight hours as needed benzonatate (TESSALON PERLES) 100 mg capsule Take 1 capsule by mouth three times daily as needed for cough. 15 capsule 0 06/28/2022 12/10/2022 Discontinued Comment on above: Take 1 capsule by [facility] three times daily as needed for cough. Biotin / Calcium Carbonate (20 sources) biotin/calcium c arbonate (BIOTIN-CALCIUM ORAL) Take by mouth. Active biotin/calcium c arbonate (BIOTIN-CALCIUM ORAL) Take by mouth. 0 Suspended biotin/calcium c arbonate (BIOTIN-CALCIUM ORAL) Take by mouth. 0 Active Comment on above: Take by mouth. 24 hr buPROPion hydrochloride 150 mg extended release oral tablet (20 sources) Aminoketone Start: 04-22-2025 take 1 tablet by mouth once daily buPROPion XL (WELLBUTRIN XL) 150 mg 24 hr tablet Take 1 tablet by mouth once daily. 30 tablet 1 04/22/2025 Active Start: 09-29-2024 End: 04-22-2025 take 1 tablet by mouth once daily buPROPion SR (WELLBUTRIN SR) 100 mg 12 hr tablet Take 1 tablet by mouth once daily. 30 tablet 5 09/29/2024 04/22/2025 Discontinued cephalexin 500 mg oral capsule (6 sources) Cephalosporin Antibacterial Start: 10-31-2024 End: 11-05-2024 take 1 capsule by mouth twice daily cephALEXin (KEFLEX) 500 mg capsule Take 1 capsule by mouth two times a day for 5 days. 10 capsule 10/31/2024 11/05/2024 Active Start: 02-09-2022 End: 02-16-2022 take 1 capsule by mouth twice daily cephALEXin (KEFLEX) 500 mg capsule Take 1 capsule by mouth twice daily for 7 days. 14 capsule 0 02/09/2022 02/16/2022 Active Comment on above: Take 1 capsule by mo ut twice daily for 7 days. cevimeline 30 mg oral capsule (20 sources) Cholinergic Receptor Agonist Start: End: take 1 capsule by mouth three times daily cevimeline (EVOXAC) 30 mg capsule Indications: Dry mouth Take 1 capsule by mouth three times a day. 90 capsule 11 11/03/2024 11/03/2025 Active Collagen (20 sources) COLLAGEN MISC Active cyanocobalamin, vitamin B-12, (VITAMIN B-12 ORAL) (20 sources) cyanocobalamin, vitamin B-12, (VITAMIN B-12 ORAL) Take by mouth once daily. Active cyanocobalamin, vitamin B-12, (VITAMIN B-12 ORAL) Take by mouth. Active cyanocobalamin, vitamin B-12, (VITAMIN B-12 ORAL) Take by mouth. 0 Active cyclobenzaprine hydrochloride 10 mg oral tablet (20 sources) Muscle Relaxant Start: 11-22-2020 End: 09-24-2024 take 1 tablet by mouth every twelve hours as needed for headache and headache cyclobenzaprine (FLEXERIL) 10 mg tablet Indications: 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 injury Take 1 tablet by mouth two times a day as needed. 180 tablet 3 01/01/2024 Active Start: 10-29-2017 take 1 tablet by porfirio every eight hours Cyclobenzaprine 10 mg tablet Active 10 mg PO Q8H October 29, 2017 1:00am Comment on above: Take 1 tablet by porfirio twice daily as needed. docosahexaenoic acid/epa (FISH OIL ORAL) (20 sources) docosahexaenoic acid/epa (FISH OIL ORAL) Take by mouth once daily. Active doxycycline hyclate 100 mg oral tablet (1 source) Tetracycline-class Drug Start: End: take 1 tablet by mouth twice daily doxycycline (VIBRA-TABS) 100 mg tablet Indications: Chronic ethmoidal sinusitis Take 1 tablet by mouth two times a day for 10 days. 20 tablet 0 09/27/2023 10/07/2023 Active Comment on above: Take 1 tablet by porfirio two times a day for 10 days. erythromycin 0.005 mg/mg ophthalmic ointment (20 sources) Macrolide, Macrolide Antimicrobial Start: 025 End: erythromycin (ROMYCIN) 5 mg/gram (0.5 %) ophthalmic ointment Indications: Status post glaucoma surgery Use 1 application in the left eye three times a day. 3.5 g 1 04/22/2025 Active Start: 11-16-2022 erythromycin ( ROMYCIN) 5 mg/gram (0.5 %) ophthalmic ointment Use 1 application in the left eye four times daily. 3.5 g 1 11/16/2022 Active Start: 02-27-2022 erythromycin ( ROMYCIN) 5 mg/gram (0.5 %) ophthalmic ointment Use 1 application in the left eye three times daily. 3.5 g 3 02/27/2022 Active Comment on above: Use 1 application in the left eye three times daily. Use 1 application in the left eye four times daily. escitalopram 10 mg oral tablet (20 sources) Serotonin Reuptake Inhibitor Start: End: take 1 tablet by mouth once daily escitalopram oxalate (LEXAPRO) 10 mg tablet Indications: Anxiety Take 1 tablet by mouth once daily. 90 tablet 3 12/29/2024 Active 84 hr estradiol 0.25773 mg/hr transdermal system (20 sources) Estrogen Start: Estradiol (Darling) 0.1 mg/24 hr patch semiweekly Active TD December 09, 2024 12:00am Start: 09-15-2024 estradiol (MERCY VONNIE-DOT) 0.1 mg/24 hr patch Indications: Vasomotor symptoms due to menopause Apply 1 Patch as directed two times a week. TWICE WEEKLY 8 Patch 11 09/15/2024 Active fluconazole 150 mg oral tablet (4 sources) Azole Antifungal Start: 04-22-2025 End: 05-02-2025 take 1 tablet by mouth once daily fluconazole (DIFLUCAN) 150 mg tablet Take 1 tablet by mouth once daily for 10 days. 10 tablet 04/22/2025 05/02/2025 Active fluticasone propionate 0.05 mg/actuat metered dose nasal spray (20 sources) Corticosteroid Start: 03-10-2025 Fluticasone Propionate 50 mcg/actuation spray,suspension Active 2 NMA INTRANASAL daily March 10, 2025 12:00am Start: 09-08-2024 take 2 spray(s) by m outh once daily fluticasone (FLONASE) 50 mcg/actuation nasal spray Use 2 Sprays in each nostril once daily. Rinse mouth after use. 3 Each 3 09/08/2024 Active Start: 07-31-2021 End: 08-13-2022 take 2 spray(s) by mouth once daily fluticasone (FLONASE) 50 mcg/actuation nasal spray Use 2 Sprays in each nostril once daily. Rinse mouth after use. 3 Each 3 05/11/2022 08/13/2022 Discontinued Comment on above: Use 2 Sprays in each nostril once daily. Rinse mouth after use. folic acid 0.4 mg / vitamin b12 0.5 mg oral tablet (5 sources) Vitamin B12 Start: 12-09-2024 Vitamin O96-Evgzo Acid 500-400 mcg tablet Active 1 {tbl} PO daily December 09, 2024 12:00am administer with a meal gabapentin 100 mg oral capsule (20 sources) Anti-epileptic Agent Start: 05-11-2022 End: 06-28-2025 take 1 capsule by mouth once daily at bedtime gabapentin (NEURONTIN) 100 mg capsule Take 1 capsule by mouth daily at bedtime for 181 days. 90 capsule 1 12/29/2024 06/28/2025 Active Start: 09-18-2021 End: 03-18-2022 take 1 capsule by mouth once daily at bedtime gabapentin (NEURONTIN) 100 mg capsule Take 1 capsule by mouth daily at bedtime for 181 days. 60 capsule 2 09/18/2021 12/04/2021 Discontinued Comment on above: Take 1 capsule by [facility] daily at bedtime for 181 days. 12 hr guaiFENesin 600 mg extended release oral tablet (6 sources) Start: 04-11-20 take 1 tablet by mouth twice daily guaiFENesin (MUCINEX) 600 mg 12 hr tablet Take 1 tablet by mouth two times a day. 10 tablet 04/11/2025 Active hydroCHLOROthiazide 12.5 mg / lisinopril 10 mg oral tablet (20 sources) Thiazide Diuretic, Angiotensin Converting Enzyme Inhibitor Start: 12-10-19 Lisinopril-Hydroch lorothiazide 10-12.5 mg tablet Active 1 {tbl} PO daily December 09, 2024 12:00am Start: 07-25-2022 End: 03-31-2024 take 10-12.5 mg by mouth once lisinopril-hydroCHLOROthiazide (ZESTORET IC) 10-12.5 mg per tablet Indications: Primary hypertension Take 1 tablet by mouth once daily. 90 tablet 3 03/31/2024 Active Start: 07-31-2021 End: 07-23-2022 take 10-12.5 mg by mouth once lisinopril-hydroCHLOROthiazide (PRINZIDE,ZESTORETIC) 10-12.5 mg per tablet Take 1 tablet by mouth once daily. 90 tablet 3 07/25/2022 Active Start: 01-17-2017 End: 12-09-2024 Lisinopril-Hydrochlorothiazi de 1 EACH tablet Discontinued 1 NMA PO DAILY January 17, 2017 12:00am December 09, 2024 1:36pm Start: 01-17-2017 Lisinopril-Hyd rochlorothiazide Active 1 EACH PO DAILY January 17, 2017 12:00am Comment on above: Take 1 tablet by mouth once daily. iv contrast (will be provided with radiology test) (1 source) Start: End: inject 1 dose intravenously once iv contrast (will be provided with radiology test) MRI Brain Inject, intravenously, once for 1 dose.No IV access, insert saline lock prior to beginning of sedation, infusion, injection of imaging exam.Discontinue saline lock post exam. If Pt. has a central line or IVAD, may access for administration according to line specific nursing protocol.Once exam is complete flush line and de-access according to line specific nursing protocol in the MR contrast administration guidelines link 1 Each 0 12/25/2021 12/26/2021 Active Comment on above: MRI Brain Inject, intravenously, once fo r 1 dose.No IV access, insert saline lock prior to beginning of sedation, infusion, injection of imaging exam.Discontinue saline lock post exam. If Pt. has a central line or IVAD, may access for administration according to line specific nursing protocol.Once exam is complete flush line and de-access according to line specific nursing protocol in the MR contrast administration guidelines link L.acid/B.animali s,bifidum/FOS (PROBIOTIC COMPLEX ORAL) (20 sources) L.acid/B.animali s,bif idum/FOS (PROBIOTIC COMPLEX ORAL) Take by mouth once daily. Active L.acid/B.animali s,bifidum/FOS (PROBIOTIC COMPLEX ORAL) Take by mouth. Active L.acid/B.animali s,bifidum/FOS (PROBIOTIC COMPLEX ORAL) Take by mouth. 0 Suspended L.acid/B.animali s,bifidum/FOS (PROBIOTIC COMPLEX ORAL) Take by mouth. 0 Active Comment on above: Take by mouth. Magnesium (20 sources) Start: 12-09-2024 take 1 tablet by mouth once daily Magnesium 200 mg tablet Active 200 mg PO daily December 09, 2024 12:00am MAGNESIUM ORAL T shoshana by mouth once daily. Active meloxicam 15 mg oral tablet (20 sources) Nonsteroidal Anti-inflammatory Drug Start: 11-20-2021 Meloxicam 15 mg tablet Active November 20, 2021 12:00am Start: 06-19-2021 End: 12-29-2024 take 1 tablet by mouth once daily meloxicam (MOBIC) 15 mg tablet Indications: Trigger finger, unspecified finger, unspecified laterality Take 1 tablet by mouth once daily. 90 tablet 1 12/29/2024 Active Comment on above: Take 1 tablet by porfirio once daily. methylPREDNISolone (1 source) Corticosteroid Start: 04-28-20 End: 05-04-20 methylPREDNISolone (MEDROL, JEANINE,) 4 mg Dose-Pack Indications: Poison boo As instructed per package 21 tablet 04/28/2025 05/04/2025 Active nystatin 100 unt/mg topical powder (3 sources) Polyene Antifungal Start: 04-22-20 End: 05-06-20 nystatin (MYCOSTATIN) powder Apply 1 application to affected area two times a day for 14 days. 60 g 04/22/2025 05/06/2025 Active Tu-6-Qoh-Epa-Fish Oil-Vit D3 720 mg- 25 mcg capsule (5 sources) Start: 12-10-19 Uk-2-Lrz-Epa-Fish Oil-Vit D3 720 mg- 25 mcg capsule Active NMA PO December 09, 2024 12:00am omeprazole 20 mg delayed release oral capsule (20 sources) Proton Pump Inhibitor Start: 11-21-19 Omeprazole 20 mg capsule,delayed release(DR/EC) Active November 20, 2021 12:00am Start: 07-31-2021 End: 06-29-2024 take 1 capsule by mouth once daily omeprazole (PRILOSEC) 20 mg capsule Indications: Gastroesophageal reflux disease with esophagitis, unspecified whether hemorrhage Take 1 capsule by mouth once daily. 90 capsule 3 06/30/2024 Active Comment on above: Take 1 capsule by [facility] once daily. potassium chloride 10 meq extended release oral tablet (20 sources) Start: 11-21-19 End: 12-30-19 take 1 tablet by mouth once daily potassium chloride (K-TAB) 10 mEq tablet Indications: Hypokalemia Take 1 tablet by mouth once daily. 90 tablet 3 12/29/2024 12/29/2025 Active prednisoLONE acetate 10 mg/ml ophthalmic suspension (20 sources) Corticosteroid Start: 04-02-20 prednisoLONE acetate (PRED FORTE) 1 % ophthalmic suspension Use 1 drop in the left eye four times daily. 10 mL 2 04/02/2025 Active Start: 11-12-2022 prednisoLONE a cetate (PRED FORTE) 1 % ophthalmic suspension Use 1 Drop in the left eye four times daily. Begin 2 days BEFORE surgery 10 mL 1 11/12/2022 Active Start: 10-10-2022 End: 04-30-2023 prednisoLONE acetate (PRED F ORTE) 1 % ophthalmic suspension Use 1 Drop in the left eye four times daily. Begin 2 days BEFORE surgery 10 mL 1 11/12/2022 04/30/2023 Discontinued (Discontinued by Patient) Start: 10-10-2022 prednisoLONE a cetate (PRED FORTE, ECONOPRED PLUS) 1 % ophthalmic suspension Use 1 Drop in the left eye four times daily. Begin 2 days BEFORE surgery 10 mL 1 10/10/2022 Active Start: 06-22-2022 End: 08-16-2022 prednisoLONE acetate (PRED F ORTE, ECONOPRED PLUS) 1 % ophthalmic suspension Use 1 Drop in the right eye four times daily. Start drops in the right eye 2 (two) days prior to scheduled surgery date four times a day. Take one drop the morning of surgery. Restart following surgery four times a day for 7 (seven) days then decrease to three times a day for 7 (seven) days, then decrease to twice a day for 7 (seven) days, then decrease to once a day for 7 (seven) days, then STOP 10 mL 1 06/22/2022 08/16/2022 Discontinued (Course of therapy completed) Start: 09-05-2021 End: 12-04-2021 prednisoLONE acetate (PRED F ORTE, ECONOPRED PLUS) 1 % ophthalmic suspension Use 1 Drop in the left eye four times daily. Begin the day AFTER surgery 10 mL 2 09/05/2021 12/04/2021 Discontinued Comment on above: Use 1 Drop in the le ft eye four times daily. Begin the day AFTER surgery Use 1 Drop in the ri ght eye four times daily. Start drops in the right eye 2 (two) days prior to scheduled surgery date four times a day. Take one drop the morning of surgery. Restart following surgery four times a day for 7 (seven) days then decrease to three times a day for 7 (seven) days, then decrease to twice a day for 7 (seven) days, then decrease to once a day for 7 (seven) days, then STOP Use 1 Drop in the le ft eye four times daily. Begin 2 days BEFORE surgery predniSONE 10 mg oral tablet (7 sources) Start: 11-18-2023 End: 11-27-2023 predniSONE (DELTASONE) 10 mg tablet Indications: Bacterial sinusitis Take 4 tabs daily for 3 days, then 2 tabs daily for 3 days, then 1 tab daily for 3 days with food. 21 tablet 0 11/18/2023 11/27/2023 Active Start: 05-24-2023 End: 06-02-2023 predniSONE (DELTASONE) 10 mg tablet Indications: Allergic contact dermatitis due to plants, except food Take 4 tabs daily for 3 days, then 2 tabs daily for 3 days, then 1 tab daily for 3 days with food. 21 tablet 05/24/2023 06/02/2023 Start: 06-25-2022 End: 06-30-2022 take 2 tablets by mouth once daily predniSONE (DELTASONE) 20 mg tablet Indications: Sinus pressure , URI, acute Take 2 tablets by mouth once daily for 5 days. 10 tablet 0 06/25/2022 06/30/2022 Active Comment on above: Take 2 tablets by mo ut once daily for 5 days. Take 4 tabs daily fo r 3 days, then 2 tabs daily for 3 days, then 1 tab daily for 3 days with food. proparacaine hydrochloride 5 mg/ml ophthalmic solution (4 sources) Local Anesthetic Start: 03-23-2025 End: 03-24-2025 proparacaine 0.5 % 1 drop (ALCAINE) Start: 03-23-2025 End: 03-24-2025 1 drop, BOTH EYES, DIRECT ED, Starting on Sat03/23/25 at 1330, Until Sat03/24/25 at 0129, Administer for pneumo tonometry, tonopen tonometry, or pachymetry. In the event of a proparacaine shortage, administer tetracaine 0.5% ophthalmic drops 1 drop in both eyes as directed for pneumo tonometry, tonopen tonometry, or pachymetry Start: 08-20-2023 End: 08-21-2023 proparacaine 0.5 % 1 Drop (A LCAINE) Start: 02-27-2022 End: 02-28-2022 proparacaine 0.5 % 1 Drop (A LCAINE) SAW PALMETTO ORAL (20 sources) SAW PALMETTO ORA L Take by mouth once daily. Active traZODone hydrochloride 100 mg oral tablet (20 sources) Serotonin Reuptake Inhibitor Start: End: take 1 tablet by mouth once daily at bedtime traZODone (DESYREL) 100 mg tablet Indications: Insomnia, unspecified type Take 1 tablet by mouth daily at bedtime. 90 tablet 1 03/31/2025 09/27/2025 Active Start: 09-29-2024 End: 03-28-2025 take 1 tablet by mouth once daily at bedtime traZODone (DESYREL) 100 mg tablet Indications: Insomnia, unspecified type Take 1 tablet by mouth daily at bedtime. 30 tablet 5 09/29/2024 10/12/2024 Discontinued Start: 10-20-2018 End: 03-31-2025 take 1 tablet by mouth at bedtime as needed Trazodone 50 mg tablet Active 50 mg PO AT BEDTIME as needed for insomnia October 20, 2018 1:00am Comment on above: Take 1 tablet by porfirio th daily at bedtime. triamcinolone acetonide 0.25 mg/ml topical cream (9 sources) Corticosteroid Start: 04-22-2025 triamcinolone (KENALOG) 0.025 % cream Apply to affected area two times a day. 80 g 1 04/22/2025 Active Start: 04-11-2024 End: 04-18-2024 triamcinolone acetonide (LILIANA ALOG) 0.1 % cream Apply 1 application to affected area two times a day for 7 days. Apply to affected area. Use sparingly. 15 g 0 04/11/2024 04/18/2024 Active Start: 07-23-2022 End: 08-13-2022 take 2 spray(s) by inhalation once daily triamcinolone acetonide (NASACORT) 55 mcg nasal inhaler Use 2 Sprays in the nose once daily. 16.9 mL 1 07/23/2022 08/13/2022 Discontinued Comment on above: Use 2 Sprays in the nose once daily. Vitamin B Complex (20 sources) vitamin B comple x (B COMPLEX-VITAMIN B12 ORAL) Take by mouth once daily. Active vitamin B comple x (B COMPLEX-VITAMIN B12 ORAL) Take by mouth. Active vitamin B comple x (B COMPLEX-VITAMIN B12 ORAL) Take by mouth. 0 Suspended vitamin B comple x (B COMPLEX-VITAMIN B12 ORAL) Take by mouth. 0 Active Comment on above: Take by mouth. zolpidem tartrate 5 mg oral tablet (20 sources) gamma-Aminobutyric Acid-ergic Agonist Start: 12-07-2024 End: 03-07-2025 take 1 tablet by mouth at bedtime as needed zolpidem (AMBIEN) 5 mg tablet Indications: Insomnia, unspecified type Take 1 tablet by mouth at bedtime as needed (for insomnia.) for up to 90 days. 30 tablet 2 12/07/2024 Active Completed/Discontinued Medications Medication Drug Class(es) Dates Sig (Normalized) Sig (Original) acetaminophen 300 mg / codeine phosphate 30 mg oral tablet (8 sources) Opioid Agonist Start: 10-19-2017 End: 10-29-2017 Acetaminophen-Codei ne 1 TABLET tablet Discontinued 1 - 2 {tbl} PO EVERY 6 HOURS as needed for Pain 12 0 October 19, 2017 1:00am October 29, 2017 2:15pm Start: 10-19-2017 End: 10-29-2017 take 1 tablet by mouth every six hours Acetaminophen-Codeine Discontinued 1 - 2 TABLET PO EVERY 6 HOURS October 19, 2017 1:00am October 29, 2017 2:15pm aspirin 81 mg chewable tablet (20 sources) Platelet Aggregation Inhibitor, Nonsteroidal Anti-inflammatory Drug Start: 01-17-2017 End: 12-09-2024 take 1 tablet by mouth once daily Aspirin 81 MG tablet,chewable Discontinued 81 mg PO DAILY January 17, 2017 12:00am December 09, 2024 1:35pm Start: 11-14-2015 take 1 tablet by porfirio th once daily aspirin, enteric coated (ASPIR-LOW) 81 mg EC tablet Take 1 tablet by mouth once daily. 0 11/14/2015 Active Comment on above: Take 1 tablet by porfirio th once daily. bacitracin 0.5 unt/mg / polymyxin b 10 unt/mg ophthalmic ointment (20 sources) Polymyxin-class Antibacterial Start: 02-29-20 End: 08-16-20 bacitracin-polymyxin b (POLYSPORIN) ophthalmic ointment Use 1 application in the left eye three times daily. 3.5 g 2 02/28/2022 08/16/2022 Discontinued (Course of therapy completed) Comment on above: Use 1 application in the left eye three times daily. bimatoprost 0.1 mg/ml ophthalmic solution (2 sources) Prostaglandin Analog Start: 08-02-20 End: 12-05-19 take 1 drop(s) into the eye(s) once daily at bedtime bimatoprost (LUMIGAN) 0.01 % drop ophthalmic drops Use 1 Drop in both eyes daily at bedtime. 3 Bottle 3 08/02/2020 12/04/2021 Discontinued Comment on above: Use 1 Drop in both e yes daily at bedtime. Collagenase powd (20 sources) End: 12-11-19 Collagenase powd Collagenase powd CPAP/BIPAP/OTHER (14 sources) Start: 12-17-2024 End: 03-24-2025 CPAP/BIPAP/OTHER Indications : DAYSI (obstructive sleep apnea) APAP 5-18 cmH2O DME [facility] 1 each 12/17/2024 03/24/2025 Discontinued Start: 12-17-2024 End: 05-03-2052 CPAP/BIPAP/OTHER Indications : DAYSI (obstructive sleep apnea) APAP 5[facility]18 [facility] 12/17/2024 05/03/2052 Active cyclopentolate hydrochloride 10 mg/ml ophthalmic solution (2 sources) Start: 09-26-2021 End: 12-04-2021 take 1 drop(s) into the eye(s) once daily cyclopentolate (CYCLOGYL) 1 % ophthalmic solution Use 1 Drop in the left eye once daily. 5 mL 0 09/26/2021 12/04/2021 Discontinued Comment on above: Use 1 Drop in the le ft eye once daily. dexamethasone 1 mg/ml / tobramycin 3 mg/ml ophthalmic suspension (6 sources) Aminoglycoside Antibacterial, Corticosteroid Start: 03-25-2025 End: 04-02-2025 take 1 drop(s) into the eye(s) four times daily tobramycin-dexAMETH asone (TOBRADEX) 0.3-0.1 % ophthalmic suspension Use 1 drop in the left eye four times daily. 5 mL 03/31/2025 04/02/2025 Discontinued (Course of therapy completed) 12 hr dextromethorphan hydrobromide 30 mg / guaiFENesin 600 mg extended release oral tablet (20 sources) Uncompetitive H-eerhgf-[place] te Receptor Antagonist, Sigma-1 Agonist Start: 08-30-2023 End: 12-29-2024 take 1 tablet by mouth twice daily dextromethorphan-gu aiFENesin (MUCINEX DM) 30-600 mg per tablet Take 1 tablet by mouth two times a day. 20 tablet 08/30/2023 12/29/2024 Discontinued Comment on above: Take 1 tablet by porfirio two times a day. diclofenac sodium 1 mg/ml ophthalmic solution (5 sources) Nonsteroidal Anti-inflammatory Drug Start: 11-07-2021 End: 12-25-2021 take 1 drop(s) into the eye(s) twice daily as needed diclofenac (VOLTAREN) 0.1 % ophthalmic solution Use 1 Drop in both eyes twice daily as needed. 2.5 mL 1 11/07/2021 12/25/2021 Discontinued Comment on above: Use 1 Drop in both e yes twice daily as needed. diphenhydrAMINE hydrochloride 25 mg oral capsule (20 sources) Histamine-1 Receptor Antagonist Start: 04-11-2024 End: 12-29-2024 take 25-50 mg by mouth every twenty-four hours as needed diphenhydrAMINE (BENADRYL) 25 mg capsule Take 1-2 capsules by mouth at bedtime as needed. 14 capsule 04/11/2024 12/29/2024 Discontinued Estrogens, Conjugated (GROUP HOME) / medroxyPROGESTERone (20 sources) Progestin, Estrogen Start: 01-02-2024 End: 09-15-2024 take 0.625-2.5 mg by mouth once conjugated estrogens-medroxyPR OGESTERone (PREMPRO) 0.625-2.5 mg per tablet Take 1 tablet by mouth once daily. 90 tablet 01/02/2024 09/15/2024 Discontinued Start: 01-02-2024 take 0.625-2.5 mg by mouth once conjugated estrogens-medroxyPROGESTERone (PREMPRO) 0.625-2.5 mg per tablet Take 1 tablet by mouth once daily. 90 tablet 01/02/2024 Active Start: 01-02-2024 take 0.625-2.5 mg by mouth once conjugated estrogens-medroxyPROGESTERone (PREMPRO) 0.625-2.5 mg per tablet Take 1 tablet by mouth once daily. 90 tablet 0 01/02/2024 Active Start: 01-02-2024 End: 04-01-2024 take 0.625-2.5 mg by mouth once conjugated estrogens-medroxyPROGESTERone (PREMPRO) 0.625-2.5 mg per tablet Take 1 tablet by mouth once daily. 90 tablet 0 01/02/2024 04/01/2024 Active Start: 12-10-2022 End: 01-01-2024 take 0.625-2.5 mg by mouth once conjugated estrogens-medroxyPROGESTERone (PREMPRO) 0.625-2.5 mg per tablet Take 1 tablet by mouth once daily. 90 tablet 3 12/10/2022 01/01/2024 Discontinued Start: 12-10-2022 take 0.625-2.5 mg by mouth once conjugated estrogens-medroxyPROGESTERone (PREMPRO) 0.625-2.5 mg per tablet Take 1 tablet by mouth once daily. 90 tablet 3 12/10/2022 Active Start: 12-10-2022 End: 03-10-2023 take 0.625-2.5 mg by mouth once conjugated estrogens-medroxyPROGESTERone (PREMPRO) 0.625-2.5 mg per tablet Take 1 tablet by mouth once daily. 90 tablet 3 12/10/2022 03/10/2023 Active Start: 05-15-2021 End: 12-10-2022 take 0.45-1.5 mg by mouth once conjugated estrogens-medroxyPROGESTERone (PREMPRO) 0.45-1.5 mg per tablet Take 1 tablet by mouth once daily. 84 tablet 2 07/23/2022 12/10/2022 Discontinued Comment on above: Take 1 tablet by porfirio th once daily Take 1 tablet by porfirio th once daily. ethinyl estradiol 0.005 mg / norethindrone acetate 1 mg oral tablet (8 sources) Estrogen Start: 10-19-2017 End: 12-09-2024 Norethindrone Ac-Eth Estradiol 1 EACH tablet Discontinued 1 NMA PO DAILY October 19, 2017 1:00am December 09, 2024 1:38pm Start: 10-19-2017 Norethindrone Ac-Eth Estradiol Active 1 EACH PO DAILY October 19, 2017 1:00am ibuprofen 800 mg oral tablet (20 sources) Nonsteroidal Anti-inflammatory Drug Start: 08-30-2023 End: 03-24-2025 take 1 tablet by mouth every eight hours as needed ibuprofen (MOTRIN) 800 mg tablet Take 1 tablet by mouth every 8 hours as needed for pain. Take with food. 30 tablet 08/30/2023 03/24/2025 Discontinued Comment on above: Take 1 tablet by porfirio th every 8 hours as needed for pain. Take with food. ketorolac tromethamine 5 mg/ml ophthalmic solution (20 sources) Nonsteroidal Anti-inflammatory Drug, Cyclooxygenase Inhibitor Start: 02-19-2023 End: 10-07-2024 take 1 drop(s) into the eye(s) four times daily as needed for pain keTORolac (ACULAR) 0.5 % ophthalmic solution Use 1 Drop in the left eye four times daily. Use as needed for eye pain 5 mL 1 02/19/2023 10/07/2024 Discontinued (Discontinued by Patient) Start: 11-12-2022 End: 02-19-2023 take 1 drop(s) into the eye(s) four times daily as needed for pain keTORolac (ACULAR) 0.5 % ophthalmic solution Use 1 Drop in the left eye four times daily. Use as needed for eye pain 5 mL 1 02/19/2023 Active Start: 10-10-2022 End: 11-12-2022 take 1 drop(s) into the eye(s) four times daily keTORolac (ACULAR) 0.5 % ophthalmic solution Use 1 Drop in the left eye four times daily. Begin 2 days BEFORE surgery 5 mL 1 10/10/2022 11/12/2022 Discontinued Start: 10-10-2022 take 1 drop(s) into the eye(s) four times daily keTORolac (ACULAR) 0.5 % ophthalmic solution Use 1 Drop in the left eye four times daily. Begin 2 days BEFORE surgery 5 mL 1 10/10/2022 Active Start: 06-22-2022 End: 08-16-2022 keTORolac (ACULAR) 0.5 % oph thalmic solution Use 1 Drop in the right eye four times daily. Start drops in the right eye 2 (two) days prior to scheduled surgery date four times a day. Take one drop the morning of surgery. Restart following surgery four times a day for 7 (seven) days then decrease to three times a day for 7 (seven) days, then STOP 5 mL 1 06/22/2022 08/16/2022 Discontinued (Course of therapy completed) Comment on above: Use 1 Drop in the ri ght eye four times daily. Start drops in the right eye 2 (two) days prior to scheduled surgery date four times a day. Take one drop the morning of surgery. Restart following surgery four times a day for 7 (seven) days then decrease to three times a day for 7 (seven) days, then STOP Use 1 Drop in the le ft eye four times daily. Begin 2 days BEFORE surgery Use 1 Drop in the le ft eye four times daily. Use as needed for eye pain loratadine 10 mg oral tablet (20 sources) Start: 09-09-19 24 End: 10-07-19 25 take 1 tablet by mouth once daily loratadine (CLARITIN) 10 mg tablet Indications: Nasal congestion Take 1 tablet by mouth once daily. 30 tablet 11 09/09/2023 10/07/2024 Discontinued (Course of therapy completed) Comment on above: Take 1 tablet by [facility] once daily. meclizine hydrochloride 25 mg oral tablet (8 sources) Antiemetic Start: 11-21-19 End: 11-06-19 take 1 tablet by mouth three times daily as needed Meclizine 25 mg tablet Discontinued 25 mg PO THREE TIMES A DAY as needed for vertigo 20 0 November 20, 2021 12:00am November 06, 2023 3:46pm mometasone furoate 0.05 mg/actuat metered dose nasal spray (20 sources) Corticosteroid Start: 08-13-20 End: 03-24-20 take 2 spray(s) by mouth once daily mometasone (NASONEX) 50 mcg/actuation nasal spray USE 2 SPRAYS NASALLY ONCE DAILY. RINSE MOUTH AFTER USE. 17 g 5 07/24/2023 03/24/2025 Discontinued Comment on above: Use 2 Sprays in the nose once daily. Rinse mouth after use. USE 2 SPRAYS NASALLY ONCE DAILY. RINSE MOUTH AFTER USE. moxifloxacin 5 mg/ml ophthalmic solution (20 sources) Quinolone Antimicrobial Start: 03-22-20 End: 03-31-20 moxifloxacin (VIGAMOX) 0.5 % ophthalmic solution Use in the left eye three times a day. 03/22/2025 03/31/2025 Discontinued (Course of therapy completed) Start: 06-22-2022 End: 08-16-2022 moxifloxacin (VIGAMOX) 0.5 % ophthalmic solution Use 1 Drop in the right eye four times daily. Start drops in the right eye 2 (two) days prior to scheduled surgery date four times a day. Take one drop the morning of surgery. Restart following surgery four times a day for 7 (seven) days then decrease to three times a day for 7 (seven) days, then STOP 3 mL 0 06/22/2022 08/16/2022 Discontinued (Course of therapy completed) Comment on above: Use 1 Drop in the ri ght eye four times daily. Start drops in the right eye 2 (two) days prior to scheduled surgery date four times a day. Take one drop the morning of surgery. Restart following surgery four times a day for 7 (seven) days then decrease to three times a day for 7 (seven) days, then STOP oxymetazoline hydrochloride 1 mg/ml ophthalmic solution (12 sources) Start: 02-07-20 End: 05-07-20 oxymetazoline, PF, (UPNEEQ, PF,) 0.1 % dpet Use 1 Drop in eyes once daily. 90 Each 1 02/06/2022 05/07/2022 Comment on above: Use 1 Drop in eyes o nce daily. phenylephrine hydrochloride 25 mg/ml ophthalmic solution (1 source) alpha-1 Adrenergic Agonist Start: 08-20-20 End: 08-21-20 PHENYLephrine 2.5 % 1 Drop (AK-DILATE, BENEDICT-SYNEPHRINE) polymyxin b 32603 unt/ml / trimethoprim 1 mg/ml ophthalmic solution (19 sources) Dihydrofolate Reductase Inhibitor Antibacterial, Polymyxin-class Antibacterial Start: 10-10-19 End: 11-13-19 take 1 drop(s) into the eye(s) four times daily trimethoprim-polymyxi n (POLYTRIM) 10,000 unit- 1 mg/mL ophthalmic solution Use 1 Drop in the left eye four times daily. Begin 2 days BEFORE surgery 10 mL 1 11/12/2022 Active Start: 09-05-2021 End: 12-04-2021 take 1 drop(s) into the eye(s) four times daily trimethoprim-polymyxin (POLYTRIM) 10,000 unit- 1 mg/mL ophthalmic solution Use 1 Drop in the left eye four times daily. Begin 2 days BEFORE surgery 10 mL 1 09/05/2021 12/04/2021 Discontinued Comment on above: Use 1 Drop in the le ft eye four times daily. Begin 2 days BEFORE surgery progesterone 100 mg oral capsule (20 sources) Progesterone Start: 09-15-19 End: 09-15-19 take 1 capsule by mouth once daily at bedtime progesterone micronized (PROMETRIUM) 100 mg capsule Take 1 capsule by mouth daily at bedtime. 90 capsule 3 09/15/2024 03/24/2025 Discontinued 12 hr timolol 5 mg/ml ophthalmic solution (11 sources) beta-Adrenergic Agustin Start: 03-23-20 End: 03-25-20 timolol maleate (TIMOPTIC) 0.5 % ophthalmic solution Use 1 drop in the left eye two times a day. 10 mL 03/23/2025 03/25/2025 Discontinued Start: 12-07-2015 End: 11-06-2023 Timolol Maleate 1 DROP drops Discontinued 1 NMA EACH EYE TWICE A DAY December 07, 2015 12:00am November 06, 2023 3:47pm Start: 12-07-2015 End: 11-06-2023 Timolol Maleate Discontinued 1 DRP EACH EYE TWICE A DAY December 07, 2015 12:00am November 06, 2023 3:47pm tropicamide 10 mg/ml ophthalmic solution (3 sources) Anticholinergic Start: 04-20-2025 End: 04-20-2025 tropicamide 1 % 1 drop (MYDRIACYL) Start: 04-20-2025 End: 04-20-2025 1 drop, RIGHT EYE, DIRECT ED, Starting on Sat04/20/25 at 1100, Until Sat04/20/25 at 2259, Administer for dilation Start: 08-20-2023 End: 08-21-2023 tropicamide 1 % 1 Drop (MYDR IACYL) Problems Active Problems Problem Classification Problem Date Documented Da te Episodic/Chronic Administrative/social admission (6 sources) Functional finding; Translations: [Other reduced mobility] Episodic Allergic reactions (4 sources) Allergic contact dermatitis caused by plant material; Translations: [Allergic contact dermatitis due to plants, except food] Onset: 04-22-2025 04-11-2024 Episodic Anxiety disorders (20 sources) Anxiety; Translations: [Anxiety disorder, unspecified] Onset: 12-29-2024 10-12-2024 Chronic Blindness and vision defects (20 sources) Legal blindness; Translations: [Legal blindness, as defined in [place]] Onset: 11-11-2014 08-28-2021 Chronic Cataract (20 sources) Bilateral senile combined form cataracts of eyes; Translations: [Combined 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 cataract, bilateral] Onset: 04-03-2022 Resolved: 12-29-2022 Chronic Complications of surgical procedures or medical care (3 sources) Leaking filtering bleb; Translations: [Other postprocedural complications and disorders of eye and adnexa, not elsewhere classified] Onset: 03-23-2025 03-23-2025 Episodic Diseases of mouth; excluding dental (4 sources) Xerostomia; Translations: [Dry mouth, unspecified] 10-07-2024 Episodic Disorders of lipid metabolism (20 sources) Mixed hyperlipidemia; Translations: [Mixed hyperlipidemia] Onset: 04-15-2017 04-15-2017 Chronic Esophageal disorders (5 sources) Gastro-esophageal reflux disease with esophagitis; Translations: [Gastroesophageal reflux disease with esophagitis, unspecified whether hemorrhage] Chronic Essential hypertension (20 sources) Hypertensive disorder; Translations: [Essential (primary) hypertension] Onset: 11-11-2014 12-14-2014 Chronic Genitourinary symptoms and ill-defined conditions (1 source) Dysuria; Translations: [Dysuria] 10-31-2024 Episodic Glaucoma (20 sources) Secondary glaucoma ; 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, bilateral, indeterminate stage] Onset: 12-29-2019 Resolved: 12-29-2022 12-29-2019 Chronic Headache; including migraine (1 source) New daily persistent headache; Translations: [New daily persistent headache (NDPH)] Chronic Headache; including migraine (6 sources) Chronic mixed headache syndrome; Translations: [Other headache syndrome] Episodic Immunizations and screening for infectious disease (5 sources) Viral screening status; Translations: [Encounter for screening for other viral diseases] Onset: 03-02-2025 03-31-2024 Episodic Inflammation; infection of eye (except that caused by tuberculosis or sexually transmitteddisease) (8 sources) Blepharitis; Translations: [Unspecified blepharitis right eye, unspecified eyelid] 03-20-2021 Episodic Menopausal disorders (1 source) Menopausal syndrome; Translations: [Menopausal and female climacteric states] 09-15-2024 Chronic Mood disorders (5 sources) Depressive disorder; Translations: [Depression, unspecified depression type] 09-29-2024 Chronic Mood disorders (1 source) Mood disorders; Translations: [Depression, unspecified depression type] Onset: 12-29-2024 Nutritional deficiencies (2 sources) Vitamin D deficiency; Translations: [Vitamin D deficiency, unspecified] Onset: 11-03-2024 11-03-2024 Chronic Occlusion or stenosis of precerebral arteries (20 sources) Carotid atherosclerosis; Translations: [Occlusion and stenosis of unspecified carotid artery] Onset: 11-15-2015 11-15-2015 Chronic Osteoarthritis (9 sources) Osteoarthritis of left hip joint; Translations: [Unilateral primary osteoarthritis, left hip] Onset: 11-30-2024 03-10-2025 Chronic Other acquired deformities (2 sources) Degenerative disorder of musculoskeletal system; Translations: [Other secondary scoliosis, site unspecified] 04-16-2025 Chronic Other acquired deformities (1 source) Other secondary scoliosis, site unspecified; Translations: [Other secondary scoliosis, site unspecified] Onset: 04-16-2025 Chronic Other acquired deformities (2 sources) Spondylolisthesis; Translations: [Spondylolisthesis, site unspecified] 04-16-2025 Episodic Other acquired deformities (1 source) Spondylolisthesis, site unspecified; Translations: [Spondylolisthesis, site unspecified] Onset: 05-21-2025 Episodic Other aftercare (6 sources) Follow-up status; Translations: [Encounter for follow-up examination after completed treatment for conditions other than malignant neoplasm] Episodic Other aftercare (2 sources) Surgical follow-up; Translations: [Encounter for follow-up examination after completed treatment for conditions other than malignant neoplasm] 04-02-2025 Episodic Other aftercare (1 source) Encounter for follow-up examination after completed treatment for conditions other than malignant neoplasm; Translations: [Follow-up examination after eye surgery] Onset: 04-02-2025 Episodic 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 sources) Pseudoxanthoma elasticum; Translations: [Other specified congenital malformations of skin] Onset: 11-11-2014 08-28-2021 Chronic Other congenital anomalies (1 source) Other specified congenital malformations of skin; Translations: [PXE (pseudoxanthoma elasticum)] Onset: 08-28-2021 Chronic Other connective tissue disease (3 sources) Pain of bilateral hands; Translations: [Pain in right hand] Episodic Other connective tissue disease (14 sources) Triggering of digit; Translations: [Trigger finger, left middle finger] Episodic Other connective tissue disease (1 source) Trigger finger, right ring finger; Translations: [Trigger ring finger of right hand] Onset: 11-07-2022 Episodic Other connective tissue disease (1 source) Trigger finger, left middle finger; Translations: [Trigger middle finger of left hand] Onset: 11-07-2022 Episodic Other connective tissue disease (8 sources) Inflammation of rotator cuff tendon; Translations: [Other shoulder lesions, unspecified shoulder] 12-18-2023 Episodic Other connective tissue disease (10 sources) Trochanteric bursitis; Translations: [Trochanteric bursitis, left hip] 12-09-2024 Episodic Other disorders of stomach and duodenum (1 source) Nonulcer dyspepsia; Translations: [Functional dyspepsia] Episodic Other eye disorders (20 sources) Angioid streaks of choroid; 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] Onset: 04-15-2017 04-15-2017 Chronic Other eye disorders (1 source) Vitreous prolapse of left eye; Translations: [Vitreous prolapse, left eye] Chronic Other eye disorders (1 source) Angioid streaks of macula; 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] Onset: 04-15-2017 Chronic Other eye disorders (2 sources) Marginal corneal ulcer of left eye; Translations: [Marginal corneal ulcer, left eye] Episodic Other eye disorders (1 source) Dellen of cornea of left eye; Translations: [Other corneal degeneration] Episodic Other eye disorders (1 source) Filtering (vitreous) bleb after glaucoma surgery status; Translations: [Status post glaucoma surgery] Onset: 04-22-2025 Episodic Other gastrointestinal disorders (2 sources) Altered bowel function; Translations: [Change in bowel habit] 04-30-2023 Episodic Other inflammatory condition of skin (8 sources) Pruritic rash; Translations: [Other pruritus] 03-20-2021 Episodic Other inflammatory condition of skin (2 sources) Intertrigo; Translations: [Erythema intertrigo] 04-22-2025 Episodic Other inflammatory condition of skin (1 source) Erythema intertrigo; Translations: [Intertrigo] Onset: 04-22-2025 Episodic Other injuries and conditions due to external causes (7 sources) Injury of right rotator cuff; Translations: [Unspecified injury of muscle(s) and tendon(s) of the rotator cuff of right shoulder, initial encounter] 11-06-2023 Episodic Other injuries and conditions due to external causes (1 source) Unspecified injury of muscle(s) and tendon(s) of the rotator cuff of right shoulder, initial encounter; Translations: [Shoulder and upper arm injury] 11-06-2023 Episodic Other lower respiratory disease (1 source) Cough; Translations: [Acute cough] Episodic Other lower respiratory disease (2 sources) Snoring; Translations: [Snoring] 10-08-2024 Episodic Other lower respiratory disease (1 source) Snoring; Translations: [Snoring] Onset: 11-17-2024 Episodic Other nervous system disorders (1 source) Paresthesia of hand ; Translations: [Anesthesia of skin] 04-25-2023 Episodic Other non-traumatic joint disorders (7 sources) Pain in right shoulder; Translations: [Right shoulder pain] 11-06-2023 Episodic Other non-traumatic joint disorders (1 source) Pain in left hip; Translations: [Pain in left hip] Onset: 03-10-2025 Episodic Other nutritional; endocrine; and metabolic disorders (20 sources) Obese class I; Translations: [Obesity, unspecified] Onset: 06-20-2022 06-20-2022 Chronic Other upper respiratory infections (1 source) Bacterial sinusitis; Translations: [Chronic sinusitis, unspecified] 11-18-2023 Chronic Other upper respiratory infections (2 sources) Viral upper respiratory tract infection; Translations: [Acute upper respiratory infection, unspecified] Onset: 04-11-2025 04-11-2025 Episodic Kathleen-; endo-; and myocarditis; cardiomyopathy (except that caused by tuberculosis or sexually transmitted disease) (16 sources) Heart valve disorder; Translations: [Endocarditis, valve unspecified] Onset: 11-15-2015 03-25-2025 Chronic Peripheral and visceral atherosclerosis (20 sources) Peripheral vascular disease, unspecified; Translations: [Peripheral vascular disease, unspecified] Onset: 11-15-2015 11-15-2015 Chronic Residual codes; unclassified (20 sources) Obstructive sleep apnea syndrome; Translations: [Obstructive sleep apnea (adult) (pediatric)] Onset: 03-25-2025 07-09-2024 Chronic Residual codes; unclassified (3 sources) Daytime somnolence; Translations: [Other hypersomnia] 09-25-2024 Chronic Residual codes; unclassified (3 sources) Unrefreshed by sleep; Translations: [Other sleep disorders] 09-25-2024 Chronic Residual codes; unclassified (1 source) Periodic limb movement disorder; Translations: [Periodic limb movement disorder] 10-08-2024 Chronic Residual codes; unclassified (5 sources) Sleep apnea; Translations: [Sleep apnea, unspecified] 12-29-2024 Chronic Residual codes; unclassified (1 source) Periodic leg movements of sleep ; Translations: [Periodic limb movement disorder] 11-17-2024 Chronic Residual codes; unclassified (2 sources) Other hypersomnia; Translations: [Excessive daytime sleepiness] Onset: 09-24-2024 Chronic Residual codes; unclassified (2 sources) Other sleep disorders; Translations: [Non-restorative sleep] Onset: 09-24-2024 Chronic Residual codes; unclassified (1 source) Periodic limb movement disorder; Translations: [PLMD (periodic limb movement disorder)] Onset: 11-17-2024 Chronic Residual codes; unclassified (2 sources) Obstructive sleep apnea (adult) (pediatric); Translations: [DAYSI (obstructive sleep apnea)] Onset: 08-21-2024 Chronic Residual codes; unclassified (2 sources) Memory impairment; Translations: [Other amnesia] Episodic Residual codes; unclassified (3 sources) Difficulty with household tasks; Translations: [Other general symptoms and signs] Episodic Residual codes; unclassified (3 sources) Difficulty reading; Translations: [Other general symptoms and signs] Episodic Residual codes; unclassified (1 source) Flushing; Translations: [Flushing] Episodic Residual codes; unclassified (4 sources) Insomnia; Translations: [Insomnia, unspecified] 09-29-2024 Episodic Retinal detachments; defects; vascular occlusion; and retinopathy (20 sources) Degenerative disorder of macula ; Translations: [Unspecified macular degeneration] Onset: 11-11-2014 08-28-2021 Chronic Spondylosis; intervertebral disc disorders; other back problems (6 sources) Lumbar spondylosis; Translations: [Spondylosis without myelopathy or radiculopathy, lumbar region] 03-10-2025 Chronic Spondylosis; intervertebral disc disorders; other back problems (4 sources) Lumbar radiculopathy; Translations: [Radiculopathy, lumbar region] Onset: 04-16-2025 04-16-2025 Episodic Unclassified (20 sources) Aortic valve sclerosis; Translations: [Aortic sclerosis] Onset: 11-15-2015 11-15-2015 Unclassified (2 sources) Greater trochanteric bursitis of left hip Unclassified (2 sources) Rotator cuff tendinitis Unclassified (2 sources) Injury of right rotator cuff Unclassified (2 sources) M70.62 - Trochanteric bursitis, left hip,M75.81 - Other shoulder lesions, right shoulder,S46.001A - Unspecified injury of muscle(s) and tendon(s) of the rotator cuff of right shoulder, initial encounter Urinary tract infections (1 source) Acute lower urinary tract infection; Translations: [Urinary tract infection, site not specified] 10-31-2024 Episodic Viral infection (8 sources) Disease caused by 2019-nCoV; Translations: [COVID-19] 09-18-2021 Episodic Past or Other Problems Problem Classification Problem Date Documented Da te Episodic/Chronic Abdominal pain (20 sources) Upper abdominal pain; Translations: [Right upper quadrant pain] Onset: 01-29-2018 01-29-2018 Episodic Blindness and vision defects (20 sources) Photopsia; Translations: [Other subjective visual disturbances] Onset: 06-25-2022 Resolved: 06-25-2022 Episodic Conditions associated with dizziness or vertigo (20 sources) Benign paroxysmal positional vertigo; Translations: [Benign paroxysmal vertigo, unspecified ear] Onset: 04-15-2017 04-15-2017 Episodic Fluid and electrolyte disorders (3 sources) Hypokalemia; Translations: [Hypokalemia] Onset: 12-29-2024 11-20-2024 Episodic Malaise and fatigue (3 sources) Fatigue; Translations: [Other fatigue] Onset: 11-03-2024 11-03-2024 Episodic Nausea and vomiting (20 sources) Nausea; Translations: [Nausea] Onset: 01-29-2018 01-29-2018 Episodic Nutritional deficiencies (4 sources) Cobalamin deficiency; Translations: [Deficiency of other specified B group vitamins] Onset: 11-03-2024 11-03-2024 Episodic Other connective tissue disease (20 sources) Patellar tendonitis; Translations: [Patellar tendinitis, unspecified knee] Onset: 03-12-2006 03-12-2006 Episodic Other connective tissue disease (1 source) Swelling of hand; Translations: [Other specified soft tissue disorders] 05-21-2023 Episodic Other connective tissue disease (1 source) Trigger finger, unspecified finger; Translations: [Trigger finger, unspecified finger, unspecified laterality] Onset: 12-29-2024 Episodic Other screening for suspected conditions (not mental disorders or infectious disease) (18 sources) Patient encounter status; Translations: [Encounter for screening mammogram for malignant neoplasm of breast] Onset: 10-21-2024 Episodic Results Test Name Value Interpretation Reference Range Facility [facility] 05-17-2025 [facility]NP[facility] Telephone (PMNA11) ALLIE LYNN ([id number]) 1970 F [place] Date Time Provider Department 05/17/25 AISLINN REYES [id number] During your visit today, we recorded the following information about you: Satish Hunter 05/17/2025 4:48 PM Signed Fax received from [facility] dated 05/15/25, regarding New Rx Fax placed on provider desk for review/signature. Allergies As of Date: 05/17/2025 Noted Allergy Reaction DARVOCET A500 (PROPOXYPHENE N-GABRIEL*04/28/2012 1 - Mental Status Change NITROFURANTOIN 03/05/2020 14 - Other: See Comments Comments: Loss of conciousness PROPOXYPHENE 03/05/2020 14 - Other: See Comments Comments: Hallucinations TRAMADOL 03/05/2020 14 - Other: See Comments Comments: Loss of conciousness HYDROCODONE BITARTRATE 10/19/2017 9 - Itching OPIOIDS - MORPHINE ANALOGUES 03/05/2020 9 - Itching ULTRAM (TRAMADOL HCL) 03/12/2006 11 - Vomiting VICODIN (HYDROCODONE-ACETAMINOP HE*04/28/2012 9 - Itching Date Reviewed: 04/22/2025 Reviewed by: Jackie Freitas MA - Fully Assessed Reason for Visit: Refill Request [94] Prescriptions as of 05/17/2025 - erythromycin (ROMYCIN) 5 mg/gram (0.5 %) ophthalmic ointment Use 1 application in the left eye three times a day. - triamcinolone (KENALOG) 0.025 % cream Apply to affected area two times a day. - buPROPion XL (WELLBUTRIN XL) 150 mg 24 hr tablet Take 1 tablet by mouth once daily. - azithromycin (ZITHROMAX Z-JEANINE) 250 mg tablet 2 tablets by mouth first day then 1 tablet the next 4 days - guaiFENesin (MUCINEX) 600 mg 12 hr tablet Take 1 tablet by mouth two times a day. - prednisoLONE acetate (PRED FORTE) 1 % ophthalmic suspension Use 1 drop in the left eye four times daily. - traZODone (DESYREL) 100 mg tablet Take 1 tablet by mouth daily at bedtime. - meloxicam (MOBIC) 15 mg tablet Take 1 tablet by mouth once daily. - potassium chloride (K-TAB) 10 mEq tablet Take 1 tablet by mouth once daily. - escitalopram oxalate (LEXAPRO) 10 mg tablet Take 1 tablet by mouth once daily. - gabapentin (NEURONTIN) 100 mg capsule Take 1 capsule by mouth daily at bedtime for 181 days. - atorvastatin (LIPITOR) 40 mg tablet Take 1 tablet by mouth once daily. - zolpidem (AMBIEN) 5 mg tablet Take 1 tablet by mouth at bedtime as needed (for insomnia.) for up to 90 days. - SAW PALMETTO ORAL Take by mouth once daily. - MAGNESIUM ORAL Take by mouth once daily. - COLLAGEN MISC - docosahexaenoic acid/epa (FISH OIL ORAL) Take by mouth once daily. - amLODIPine (NORVASC) 2.5 mg tablet Take 1 tablet by mouth once daily. - cevimeline (EVOXAC) 30 mg capsule Take 1 capsule by mouth three times a day. - estradiol (VIVELLE-DOT) 0.1 mg/24 hr patch Apply 1 Patch as directed two times a week. TWICE WEEKLY - fluticasone (FLONASE) 50 mcg/actuation nasal spray Use 2 Sprays in each nostril once daily. Rinse mouth after use. - omeprazole (PRILOSEC) 20 mg capsule Take 1 capsule by mouth once daily. - lisinopril-hydroCHLOROt hiazide (ZESTORETIC) 10-12.5 mg per tablet Take 1 tablet by mouth once daily. - cyclobenzaprine (FLEXERIL) 10 mg tablet Take 1 tablet by mouth two times a day as needed. - cyanocobalamin, vitamin B-12, (VITAMIN B-12 ORAL) Take by mouth once daily. - L.acid/B.animalis,bifid um/FOS (PROBIOTIC COMPLEX ORAL) Take by mouth once daily. - biotin/calcium carbonate (BIOTIN-CALCIUM ORAL) Take by mouth. - vitamin B complex (B COMPLEX-VITAMIN B12 ORAL) Take by mouth once daily. - aspirin, enteric coated (ASPIR-LOW) 81 mg EC tablet Take 1 tablet by mouth once daily. 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] 04/15/2017 Mixed hyperlipidemia [E78.2] 04/15/2017 BPPV (benign paroxysmal positional vertigo) [H8*04/15/2017 Nausea [R11.0] 01/29/2018 Bilateral upper abdominal pain [R10.11, R10.12] 01/29/2018 Secondary glaucoma, indeterminate stage, 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 Normal [facility] Spine Lumbar (Routine)on Spine Lumbar (Routine) [facility] Imaging Services [address] [place] [address] Spine Lumbar (Routine) MR#: [id number] Acct: [id number] Name: ALLIE LYNN Rep #: [id number] : 1970 F 55 From: Brittaney stacy MD PCP: Dr. Ifeoma Davis MD Status: REG CLI Study: Spine Lumbar (Routine) Date of Exam: 05/07/25 Exam# [id number] Ordering Dr: Michael Cameron MD PROCEDURE: SPINE LUMBAR (ROUTINE) 05/07/2025 REASON FOR EXAM: LUMBAR RADICULOPATHY TECHNIQUE: Procedure Code: MRISPL Modality: MR Procedure: SPINE LUMBAR (ROUTINE) COMPARISON: 02/13/2019 FINDINGS: The vertebral bodies of normal height. 5 lumbar type vertebra are present.. No anterior or retrolisthesis. Mild scoliosis. There is no normal abnormal marrow signal detected. The spinal cord ends normally at T12-L1. Paraspinal soft tissues are normal without any retroperitoneal lymphadenopathy or mass. L1-2: Central protrusion indenting the thecal sac. Facet arthropathy and ligamentum flavum hypertrophy. There is mild central stenosis. No foraminal encroachment. L2-3: Mild disk bulge. L3-4: Diffuse disc desiccation loss of disc space height. Diffuse bulge. Facet arthropathy ligamentum flavum hypertrophy. Moderate central stenosis. There is bilateral foraminal encroachment more so on the right than the left with mass effect on the exiting right L3 nerve. L4-5: Diffuse disc bulge. Severe facet arthropathy and ligamentum flavum redundancy with severe central stenosis. Bilateral foraminal encroachment more so on the left than the right with mass effect on the exiting left L4 nerve. L5-S1: Mild disc desiccation. No central protrusion. No foraminal stenosis. Sacrum: Unremarkable MRI/Spine Lumbar (Routine) IMPRESSION: Since the previous examination there has been progression of disc disease facet arthropathy and central protrusion at L3-4 and L4-5 with right foraminal stenosis at L3-4 and left foraminal stenosis at L4-5 both of which appear new. There is corresponding mass effect on exiting nerve roots. Stable degenerative disc bulge and central protrusion at L1-2 with associated central stenosis. Reading Location: [id number] CC: Dr. Michael Cameron MD; Dr. Ifeoma Davis MD Trade Marker: Signed [facility] 04-28-2025 [facility] Telephone (INTMWS) ALLIE LYNN ([id number]) 1970 F Date Time Provider Department 04/28/25 IFEOMA DAVIS INTMWS During your visit today, we recorded the following information about you: Mallory Morrison RN 04/28/2025 11:43 AM Signed Patient calls to report that the topical medication ordered for poison boo isn't working to help the itch. Patient's daughter is a pharmacist and told her to request a steroid pill to help dry the spots up. Patient requests it be sent to [facility]. Please review and advise, BRITTANY Lanza Amanda, RN 04/28/2025 4:43 PM Signed Pt called in to see if provider had called in a steroid for her. I let her know that the provider had not gotten to the message as of yet. Please call and advise. BRITTANY Hircsh Chitra, MD 04/28/2025 5:22 PM Signed Filed the medication as requested Mallory Morrison RN 04/29/2025 8:26 AM Signed Call placed to patient and notified of below with verbalized understanding. Mallory Morrison RN Allergies As of Date: 04/28/2025 Noted Allergy Reaction DARVOCET A500 (PROPOXYPHENE N-GABRIEL*04/28/2012 1 - Mental Status Change NITROFURANTOIN 03/05/2020 14 - Other: See Comments Comments: Loss of conciousness PROPOXYPHENE 03/05/2020 14 - Other: See Comments Comments: Hallucinations TRAMADOL 03/05/2020 14 - Other: See Comments Comments: Loss of conciousness HYDROCODONE BITARTRATE 10/19/2017 9 - Itching OPIOIDS - MORPHINE ANALOGUES 03/05/2020 9 - Itching ULTRAM (TRAMADOL HCL) 03/12/2006 11 - Vomiting VICODIN (HYDROCODONE-ACETAMINOP HE*04/28/2012 9 - Itching Date Reviewed: 04/22/2025 Reviewed by: Jackie Freitas MA - Fully Assessed Primary Visit Diagnosis:Poison boo [L23.7] Other Visit Diagnosis:Intertrigo [L30.4] Order(s):methylPREDNISo lone (MEDROL, JEANINE,) 4 mg Dose-PackAs instructed per packageDisp: 21 tabletRfl: 0 Prescriptions as of 04/29/2025 - methylPREDNISolone (MEDROL, JEANINE,) 4 mg Dose-Pack As instructed per package - erythromycin (ROMYCIN) 5 mg/gram (0.5 %) ophthalmic ointment Use 1 application in the left eye three times a day. - nystatin (MYCOSTATIN) powder Apply 1 application to affected area two times a day for 14 days. - triamcinolone (KENALOG) 0.025 % cream Apply to affected area two times a day. - buPROPion XL (WELLBUTRIN XL) 150 mg 24 hr tablet Take 1 tablet by mouth once daily. - fluconazole (DIFLUCAN) 150 mg tablet Take 1 tablet by mouth once daily for 10 days. - azithromycin (ZITHROMAX Z-JEANINE) 250 mg tablet 2 tablets by mouth first day then 1 tablet the next 4 days - guaiFENesin (MUCINEX) 600 mg 12 hr tablet Take 1 tablet by mouth two times a day. - prednisoLONE acetate (PRED FORTE) 1 % ophthalmic suspension Use 1 drop in the left eye four times daily. - traZODone (DESYREL) 100 mg tablet Take 1 tablet by mouth daily at bedtime. - meloxicam (MOBIC) 15 mg tablet Take 1 tablet by mouth once daily. - potassium chloride (K-TAB) 10 mEq tablet Take 1 tablet by mouth once daily. - escitalopram oxalate (LEXAPRO) 10 mg tablet Take 1 tablet by mouth once daily. - gabapentin (NEURONTIN) 100 mg capsule Take 1 capsule by mouth daily at bedtime for 181 days. - atorvastatin (LIPITOR) 40 mg tablet Take 1 tablet by mouth once daily. - zolpidem (AMBIEN) 5 mg tablet Take 1 tablet by mouth at bedtime as needed (for insomnia.) for up to 90 days. - SAW PALMETTO ORAL Take by mouth once daily. - MAGNESIUM ORAL Take by mouth once daily. - COLLAGEN MISC - docosahexaenoic acid/epa (FISH OIL ORAL) Take by mouth once daily. - amLODIPine (NORVASC) 2.5 mg tablet Take 1 tablet by mouth once daily. - cevimeline (EVOXAC) 30 mg capsule Take 1 capsule by mouth three times a day. - estradiol (VIVELLE-DOT) 0.1 mg/24 hr patch Apply 1 Patch as directed two times a week. TWICE WEEKLY - fluticasone (FLONASE) 50 mcg/actuation nasal spray Use 2 Sprays in each nostril once daily. Rinse mouth after use. - omeprazole (PRILOSEC) 20 mg capsule Take 1 capsule by mouth once daily. - lisinopril-hydroCHLOROt hiazide (ZESTORETIC) 10-12.5 mg per tablet Take 1 tablet by mouth once daily. - cyclobenzaprine (FLEXERIL) 10 mg tablet Take 1 tablet by mouth two times a day as needed. - cyanocobalamin, vitamin B-12, (VITAMIN B-12 ORAL) Take by mouth once daily. - L.acid/B.animalis,bifid um/FOS (PROBIOTIC COMPLEX ORAL) Take by mouth once daily. - biotin/calcium carbonate (BIOTIN-CALCIUM ORAL) Take by mouth. - vitamin B complex (B COMPLEX-VITAMIN B12 ORAL) Take by mouth once daily. - aspirin, enteric coated (ASPIR-LOW) 81 mg EC tablet Take 1 tablet by mouth once daily. 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 Normal [facility] CNOVon 04-22-2025 CNOV Office Visit (INTMWS ) ALLIE LYNN ([id number]) 1970 F [place] Date Time Provider Department 04/22/25 10:20 AM IFEOMA DAVIS INTMWS During your visit today, we recorded the following information about you: Pulse Respiration Blood pressure Weight 79/minute 16/minute 129/79 66.5 kg Ifeoma Davis MD 04/22/2025 12:54 PM Signed Reason for Visit Follow up HPI Allie Lynn is a 54-year-old female with a history of glaucoma, scoliosis, and sleep apnea, presenting for evaluation of recent eye surgery complications, intertrigo, and poison boo exposure. She is accompanied by a friend, who is providing additional history. Allie recently underwent eye surgery at the [facility] due to a significant decrease in intraocular pressure to zero, which posed a risk of vision loss. She reports experiencing excessive fluid leakage from her eye, which disrupted her sleep and caused discomfort. Despite initial treatment with a large contact lens, the leakage persisted, leading to further surgical intervention. She notes that her eye now appears droopy but is healing well, with improved intraocular pressure. She also reports a persistent big pocket of weird fluid near her eye, which was evaluated by Dr. Marie yesterday. She reports a recent onset of an itchy rash in the intermammary area, which she has been applying anti-itch lotion to for the past two days without relief. She also reports exposure to poison boo while pulling weeds, resulting in small itchy spots on her fingers, right elbow, and left forearm. Allie has a history of sleep apnea and has been using a CPAP machine, but reports difficulty keeping the mask on during the night, leading to poor sleep quality. She expresses interest in exploring the Inspire device as an alternative treatment. She also reports taking Percocet, Benadryl, and trazodone for sleep, but continues to experience insomnia. She is currently taking Wellbutrin for depression, but reports that it no longer seems effective and requests a dosage adjustment. She also mentions a recent weight gain and expresses interest in resuming exercise once her energy levels improve. Allie has a history of scoliosis and arthritis, and reports chronic hip pain that limits her mobility. She is scheduled for an MRI on May 07 to evaluate the need for a hip replacement. She also mentions a previous injury to her hip, which she believes may have caused a torn band that has not been corrected. She reports difficulty with short-term memory, frequently misplacing items such as keys, glasses, and credit cards. She expresses concern about her cognitive decline and mentions considering assisted living as an option. She also reports visual hallucinations, describing seeing a perfect eyeball with green or purple colors and eyelashes, which she believes may be related to her eye condition. She is currently taking multiple medications and expresses interest in having her medications organized into pill packets for easier management. She also mentions a recent dental visit at [facility], where she discussed treatment options for her teeth, including bonding, Invisalign, and a crown. She expresses frustration with the cost of the proposed treatments and requests a more affordable plan. SOCIAL HISTORY[1] Past medical history, appointments, medications, allergies reviewed. Pertinent Lab/Diagnostic Studies are reviewed and discussed today Current Outpatient Medications: azithromycin (ZITHROMAX Z-JEANINE) 250 mg tablet guaiFENesin (MUCINEX) 600 mg 12 hr tablet prednisoLONE acetate (PRED FORTE) 1 % ophthalmic suspension traZODone (DESYREL) 100 mg tablet meloxicam (MOBIC) 15 mg tablet potassium chloride (K-TAB) 10 mEq tablet escitalopram oxalate (LEXAPRO) 10 mg tablet gabapentin (NEURONTIN) 100 mg capsule atorvastatin (LIPITOR) 40 mg tablet zolpidem (AMBIEN) 5 mg tablet SAW PALMETTO ORAL MAGNESIUM ORAL COLLAGEN MISC docosahexaenoic acid/epa (FISH OIL ORAL) amLODIPine (NORVASC) 2.5 mg tablet cevimeline (EVOXAC) 30 mg capsule fluticasone (FLONASE) 50 mcg/actuation nasal spray omeprazole (PRILOSEC) 20 mg capsule lisinopril-hydroCHLOROt hiazide (ZESTORETIC) 10-12.5 mg per tablet cyclobenzaprine (FLEXERIL) 10 mg tablet cyanocobalamin, vitamin B-12, (VITAMIN B-12 ORAL) L.acid/B.animalis,bifid um/FOS (PROBIOTIC COMPLEX ORAL) biotin/calcium carbonate (BIOTIN-CALCIUM ORAL) vitamin B complex (B COMPLEX-VITAMIN B12 ORAL) aspirin, enteric coated (ASPIR-LOW) 81 mg EC tablet erythromycin (ROMYCIN) 5 mg/gram (0.5 %) ophthalmic ointment fluconazole (DIFLUCAN) 150 mg tablet nystatin (MYCOSTATIN) powder triamcinolone (KENALOG) 0.025 % cream buPROPion XL (WELLBUTRIN XL) 150 mg 24 hr tablet estradiol (VIVELLE-DOT) 0.1 mg/24 hr patch Health Maintenance Hepatitis B Vaccine(1 of 3 - 19+ 3-dose seri (more content not included)... Normal [facility] (INTMWS[facility] ALLIE LYNN ([id number]) 1970 F Date Time Provider Department 04/22/25 IFEOMA DAVIS INTWS During your visit today, we recorded the following information about you: Clint Brennan RN 04/22/2025 11:33 AM Signed [facility] Yaya called for clarification on Fluconazole 150 mg instructions: 1 tab daily for 10 days (repeat in 3 days if needed) # 10. Please clarify and let Liliana Javier know. Ifeoma Davis MD 04/22/2025 3:36 PM Signed I sent new rx. Ifeoma Flores MD, Brittany L, MA 04/22/2025 3:41 PM Signed The following approved medication requests have been transmitted electronically. Requested Prescriptions Signed Prescriptions Disp Refills fluconazole (DIFLUCAN) 150 mg tablet 10 tablet 0 Sig: Take 1 tablet by mouth once daily for 10 days. Authorizing Provider: IFEOMA DAVIS MA Allergies As of Date: 04/22/2025 Noted Allergy Reaction DARVOCET A500 (PROPOXYPHENE N-GABRIEL*04/28/2012 1 - Mental Status Change NITROFURANTOIN 03/05/2020 14 - Other: See Comments Comments: Loss of conciousness PROPOXYPHENE 03/05/2020 14 - Other: See Comments Comments: Hallucinations TRAMADOL 03/05/2020 14 - Other: See Comments Comments: Loss of conciousness HYDROCODONE BITARTRATE 10/19/2017 9 - Itching OPIOIDS - MORPHINE ANALOGUES 03/05/2020 9 - Itching ULTRAM (TRAMADOL HCL) 03/12/2006 11 - Vomiting VICODIN (HYDROCODONE-ACETAMINOP HE*04/28/2012 9 - Itching Date Reviewed: 04/22/2025 Reviewed by: Jackie Freitas MA - Fully Assessed Reason for Visit: Medication Problem [65] Order(s):fluconazole (DIFLUCAN) 150 mg tabletTake 1 tablet by mouth once daily for 10 days.Disp: 10 tabletRfl: 0 Prescriptions as of 04/22/2025 - erythromycin (ROMYCIN) 5 mg/gram (0.5 %) ophthalmic ointment Use 1 application in the left eye three times a day. - nystatin (MYCOSTATIN) powder Apply 1 application to affected area two times a day for 14 days. - triamcinolone (KENALOG) 0.025 % cream Apply to affected area two times a day. - buPROPion XL (WELLBUTRIN XL) 150 mg 24 hr tablet Take 1 tablet by mouth once daily. - fluconazole (DIFLUCAN) 150 mg tablet Take 1 tablet by mouth once daily for 10 days. - azithromycin (ZITHROMAX Z-JEANINE) 250 mg tablet 2 tablets by mouth first day then 1 tablet the next 4 days - guaiFENesin (MUCINEX) 600 mg 12 hr tablet Take 1 tablet by mouth two times a day. - prednisoLONE acetate (PRED FORTE) 1 % ophthalmic suspension Use 1 drop in the left eye four times daily. - traZODone (DESYREL) 100 mg tablet Take 1 tablet by mouth daily at bedtime. - meloxicam (MOBIC) 15 mg tablet Take 1 tablet by mouth once daily. - potassium chloride (K-TAB) 10 mEq tablet Take 1 tablet by mouth once daily. - escitalopram oxalate (LEXAPRO) 10 mg tablet Take 1 tablet by mouth once daily. - gabapentin (NEURONTIN) 100 mg capsule Take 1 capsule by mouth daily at bedtime for 181 days. - atorvastatin (LIPITOR) 40 mg tablet Take 1 tablet by mouth once daily. - zolpidem (AMBIEN) 5 mg tablet Take 1 tablet by mouth at bedtime as needed (for insomnia.) for up to 90 days. - SAW PALMETTO ORAL Take by mouth once daily. - MAGNESIUM ORAL Take by mouth once daily. - COLLAGEN MISC - docosahexaenoic acid/epa (FISH OIL ORAL) Take by mouth once daily. - amLODIPine (NORVASC) 2.5 mg tablet Take 1 tablet by mouth once daily. - cevimeline (EVOXAC) 30 mg capsule Take 1 capsule by mouth three times a day. - estradiol (VIVELLE-DOT) 0.1 mg/24 hr patch Apply 1 Patch as directed two times a week. TWICE WEEKLY - fluticasone (FLONASE) 50 mcg/actuation nasal spray Use 2 Sprays in each nostril once daily. Rinse mouth after use. - omeprazole (PRILOSEC) 20 mg capsule Take 1 capsule by mouth once daily. - lisinopril-hydroCHLOROt hiazide (ZESTORETIC) 10-12.5 mg per tablet Take 1 tablet by mouth once daily. - cyclobenzaprine (FLEXERIL) 10 mg tablet Take 1 tablet by mouth two times a day as needed. - cyanocobalamin, vitamin B-12, (VITAMIN B-12 ORAL) Take by mouth once daily. - L.acid/B.animalis,bifid um/FOS (PROBIOTIC COMPLEX ORAL) Take by mouth once daily. - biotin/calcium carbonate (BIOTIN-CALCIUM ORAL) Take by mouth. - vitamin B complex (B COMPLEX-VITAMIN B12 ORAL) Take by mouth once daily. - aspirin, enteric coated (ASPIR-LOW) 81 mg EC tablet Take 1 tablet by mouth once daily. 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 Normal [facility] L/S Spine Bending Flex/[place] 04-16-2025 L/S Spine Bending Flex/Ext [facility] Services [address], [place] [id number] L/S Spine Bending Flex/Ext MR#: [id number] Acct: [id number] Name: ALLIE LYNN Rep #: [id number] : 1970 F 54 From: Alan Perales MD PCP: Dr. Ifeoma Davis MD Status: DEP AMB Study: L/S Spine Bending Flex/Ext Date of Exam: 04/16 Exam# [id number] Ordering Dr: Sarah Pino PROCEDURE: L/S SPINE BENDING FLEX/EXT 04/16/2025 REASON FOR EXAM: BACK PAIN TECHNIQUE: L/S SPINE BENDING FLEX/EXT COMPARISON: 03/10/2025. FINDINGS: Severe disc space narrowing at L3-4. Up to mild disc space narrowing of the other visualized levels. Grade 1 anterolisthesis of L4 on L5. Minimal retrolisthesis of L2 on L3. No worsening instability on flexion or extension views. RAD/L/S Spine Bending Flex/Ext IMPRESSION: Spondylosis most pronounced at L3-4. Multilevel spondylolisthesis. Reading Location: [id number] CC: KENA Perkins; Dr. Ifeoma Davis MD Trade Marker: Signed Normal [facility] Orthopedic Visit Reporton Orthopedic Visit Report [facility] [address] [place] [address] [address] [place] [address] OFFICE VISIT Date of Service: 04/16/25 MR#: [id number] Acct: [id number] Name: ALLIE LYNN Rep #: [id number] : 1970 Provider: Dr. Michael Cameron MD Age/Sex: 54/F [place] [facility] [place] [facility] [place] Status: Signed Intake Vital Signs 12/09/24 13:28 Height 5 ft Weight: 151 lb 2 oz BMI 29.5 Intake Visit Reasons: LUMBAR SPINE Allergies hydrocodone bitartrate (From Vicodin) Adverse Reaction (Verified 04/16/25 14:52) Itching nitrofurantoin (From Macrobid) Adverse Reaction (Verified 04/16/25 14:52) Other nitrofurantoin macrocrystalline (From Macrobid) Adverse Reaction (Verified 04/16/25 14:52) Other propoxyphene (From Darvocet-N) Adverse Reaction (Verified 04/16/25 14:52) Other tramadol HCl (From Ultram) Adverse Reaction (Verified 04/16/25 14:52) Other Medications ???Medication ???Instructions ???Recorded ???Confirmed ???Type atorvastatin 40 mg tablet 40 mg PO QHS 01/17/17 04/16/25 His tory cyclobenzaprine 10 mg tablet 10 mg PO Q8H 10/29/17 04/16/25 His tory trazodone 50 mg tablet 50 mg PO QHS PRN insomnia 10/20/18 04/16/25 History meloxicam 15 mg tablet 11/20/21 04/16/25 History omeprazole 20 mg capsule,delayed 11/20/21 04/16/25 History release amlodipine 2.5 mg tablet 2.5 mg PO QDAY 12/09/24 04/16/25 H istory aspirin 81 mg tablet,delayed 81 mg PO QDAY 12/09/24 04/16/25 Hi story release (Adult Low Dose Aspirin) bupropion HCl 100 mg tablet,12 hr 100 mg PO QAM 12/09/24 04/16/25 H istory sustained-release escitalopram oxalate 10 mg tablet 10 mg PO QDAY 12/09/24 04/16/25 H istory estradiol 0.1 mg/24 hr semiweekly transdermal 12/09/24 04/16/25 His tory transdermal patch (Darling) lisinopril 10 1 tab PO QDAY 12/09/24 04/16/25 Hi story mg-hydrochlorothiazide 12.5 mg tablet magnesium 200 mg tablet 200 mg PO QDAY 12/09/24 04/16/25 H istory omega-3 720 [id number]-uhr-[id number]-fish cap PO 12/09/24 04/16/25 History oil-vit D3 25 mcg capsule vitamin B12 500 mcg-folic acid 400 1 tab PO QDAY 12/09/24 04/16/25 History mcg tablet zolpidem 5 mg tablet 5 mg PO QHS PRN 12/09/24 04/16/25 History fluticasone propionate 50 2 spray intranasal QDAY 03/10/25 0 04/16/25 History mcg/actuation nasal spray,suspension gabapentin 100 mg capsule 100 mg PO QHS 03/10/25 04/16/25 Hi story oxycodone-acetaminophen 5 mg-325 0.5 - 1 tab PO TID PRN pain 04/16/25 History mg tablet PFSH Medical History (Updated 04/16/25 @ 16:[address] Michael Cameron MD) Hip arthritis Degenerative scoliosis Lumbar radiculopathy Spondylolisthesis History of trigger finger Fibromyalgia Restless legs Hot flashes Legal blindness of both eyes as defined in [place] PXE (pseudoxanthoma elasticum) Hypertension Surgical History Status post glaucoma surgery S/P right knee arthroscopy S/P Family History Father Lung cancer Mother COPD (chronic obstructive pulmonary disease) CVA (cerebral vascular accident) Son Myocardial infarction Other Breast cancer Ovarian cancer Social History household members: none housing: house Smoking Status: Never smoker alcohol intake: current alcohol intake frequency: holidays/special occasions only substance use type: does not use HPI LUMBAR SPINE Details: This documentation accurately reflects the service provided and the decisions made by me, Dr. Michael Cameron MD 04/16/25 1450. Part of today???s visit was documented by Evy DALEY and Cande Vidal RN, acting as scribe. ALLIE LYNN is a 54 year old F here today for left hip/low back pain that she has been having for about a year now. The low back pain is below the belt line. She did see Dr. Betancourt yesterday and had talked about doing an injection into the hip but is schedule to have a nerve ablation done. She does have pain in her lower back but it it more of a sciatic pain. She does have pain over her lateral hip and in the groin. She denies radiating leg pain. Denies numbness, tingling or other associated symptoms. She does have an antalgic gait due to the pain in her hip. She does not use any assistive devices to walk. She denies doing PT. She has had injections in the past with Dr. Betancourt but hadn't seen him for a few years until recently. The injections she had gotten in the past did corrosion engineer her temporary relief. She has became more of a fall risk due to the pain and stiffness. She does have weakness in her left leg and primarily uses the right leg to lead especially when going up steps. Dr. Betancourt did prescribe her Percocet yesterday for rosanne (more content not included)... [facility] Office Visit ([facility]) ALLIE LYNN ([id number]) 1970 F Date Time Provider Department 04/11/25 1:15 PM AISLINN REYES During your visit today, we recorded the following information about you: Temperature Pulse Respiration Blood pressure 97.2 degrees 82/minute 20/minute 110/62 Weight 66.1 kg Aislinn Reyes PA-C 04/11/2025 1:30 PM Signed We discussed your recent symptoms and concerns: - You have been diagnosed with a viral upper respiratory infection (URI). This is likely viral, not bacterial. - To help manage your symptoms: - Start taking Tessalon Perles to alleviate your cough. This is a medication you swallow. - Take Guaifenesin (a decongestant) twice daily for 5 days to help with congestion. - I am prescribing Azithromycin (an antibiotic), but I recommend waiting a couple of days before starting it, as this appears to be viral. The antibiotic will not address the cough but can be used if symptoms worsen or persist, suggesting a bacterial infection. - Continue monitoring your symptoms. If your cough worsens, you develop a fever, or your symptoms do not improve, please contact our office. Aislinn Reyes PA-C 04/11/2025 1:41 PM Signed [facility] NOTE Ifeoma Davis MD [address] [facility] [address] Allie Lynn is a 54-year-old female with a history of HTN, wet macular degeneration, and PXE, presenting with cough and sinus congestion. Allie reports onset of symptoms following her 9th eye surgery last week. She notes a productive cough, describing the expectorated material as gross and thick, and sinus congestion with drainage. She has been using cough drops, but feels she needs something stronger. She denies fevers. She is concerned about the potential impact of coughing on her recent eye surgery and prefers a prescription medication over OTC options due to cost coverage. 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 She is preparing for her 10th surgery and anticipates several more in the future. She reports that prior to her last surgery, she was at risk of losing her eye due to low intraocular pressure. She is under the care of multiple specialists at the [facility]. She also has a history of HTN, for which she is currently taking lisinopril-HCTZ and amlodipine. She has been on lisinopril for a long time. She lives alone and manages her household independently. She mentions feeling dizzy at times, particularly when coughing deeply. She is also expecting her first grandchild and is concerned about being sick around the . CURRENT MEDICATIONS[1] PAST MEDICAL HISTORY[2] PAST SURGICAL HISTORY Procedure Laterality Date ARTHROSCOPY KNEE DIAGNOSTIC W/WO SYNOVIAL BX SPX 1995 Arthroscopy, knee AVASTIN (BEVACIZUMAB) 1.25MG INTRAVITREAL INJECTION OD (RIGHT EYE) Right x 5 (03/12/17) DELIVERY ONLY 1988, 1991, 1993 , low cervical-x 3 COLONOSCOPY FLX DX W/COLLJ SPEC WHEN PFRMD 06/22/2019 Colonoscopy COLONOSCOPY SCREENING 05/30/[address] MAXILLOFAC/SINUS 06/29/2015 normal EGD W/O BRSH SPEC VARICIES INJ 05/30/2023 Small hiatal hernia, fundic gland polyp, mild chronic gastritis ENDOMETRIAL BX W/WO ENDOCERVIX BX W/O DILAT SPX 02/18/2012 ESOPHAGOGASTRODUODENOSC OPY TRANSORAL DIAGNOSTIC 02/03/2018 EGD INCISION OF EYE, TRABECULECTOMY Right 10/26/2021 LASER SELECTA 2 TRABECULOPLASTY Left 01/08/2020 LASER TRABECULOPLASTY OD (RIGHT EYE) Right 10/26/2021 PAST SURGICAL HISTORY OF Bilateral trigger finger release PAST SURGICAL HISTORY OF Left laser surgery to repair capsular rupture PAST SURGICAL HISTORY OF Left 03/25/2025 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 (Left) on 03/25/25 REMV CATARACT EXTRACAP,INSERT LENS Right 06/25/2022 REMV CATARACT EXTRACAP,INSERT LENS Left 11/15/2022 PEIOL OS and bleb revision (bleb reduction) x 11/15/2022- Dr. Cynthia Ramos M.D. [place] [id number] SOCIAL HISTORY[3] Physical Exam: BP 110/62 Pulse 82 Temp 36.2 ?C (97.2 ?F) Resp 20 Wt 66.1 kg (145 lb 11.6 oz) LMP 09/02/2011 (Approximate) SpO2 98% BMI 27.53 kg/m? General appearance: Well appearing, alert, in no acute distress, well-hydrated, well nourished. Skin: Skin color, texture, turgor normal, no suspicious rashes or lesions Eyes: Anicteric sclera. Pupils are equally round and reactive to light. Extraocular movements are intact. Ears: External ears normal, canals clear, Negative findings: Left tympanic color is hutchinson, Right tympanic color is hutchinson Nose/Sinuses: Negative except for clear rhinorrhea Oropharynx: Lips, mucosa, and tongue normal, teeth and gums normal, oropharynx normal Neck: supple, no lymphadenopathy noted. Lungs: Lungs clear to auscultation. No wheezing, rhonchi, rales. Unlabored on sandi (more content not included)... Normal [facility] CNPNon 04-03-2025 CNPN Telephone (OPHTMN) ALLIE LYNN ([id number]) 1970 F Date Time Provider Department 04/03/25 REYNALDO ALFORD [facility] During your visit today, we recorded the following information about you: Reynaldo Alford MD 04/03/2025 12:42 PM Signed Received a page that the patient called regarding inability to get eye drops prescribed yesterday due to a drug interaction. I called the patient back and was unable to reach them on multiple attempts. I left a message acknowledging the patient's prior call and concerns and asked them to call back [phone] at any time when available to discuss further. Reynaldo Alford MD Ophthalmology Resident Allergies As of Date: 04/03/2025 Noted Allergy Reaction DARVOCET A500 (PROPOXYPHENE N-GABRIEL*04/28/2012 1 - Mental Status Change NITROFURANTOIN 03/05/2020 14 - Other: See Comments Comments: Loss of conciousness PROPOXYPHENE 03/05/2020 14 - Other: See Comments Comments: Hallucinations TRAMADOL 03/05/2020 14 - Other: See Comments Comments: Loss of conciousness HYDROCODONE BITARTRATE 10/19/2017 9 - Itching OPIOIDS - MORPHINE ANALOGUES 03/05/2020 9 - Itching ULTRAM (TRAMADOL HCL) 03/12/2006 11 - Vomiting VICODIN (HYDROCODONE-ACETAMINOP HE*04/28/2012 9 - Itching Date Reviewed: 04/02/2025 Reviewed by: Adriana Lund MD - Fully Assessed Prescriptions as of 04/03/2025 - prednisoLONE acetate (PRED FORTE) 1 % ophthalmic suspension Use 1 drop in the left eye four times daily. - traZODone (DESYREL) 100 mg tablet Take 1 tablet by mouth daily at bedtime. - erythromycin (ROMYCIN) 5 mg/gram (0.5 %) ophthalmic ointment Use 1 application in the left eye three times a day. - meloxicam (MOBIC) 15 mg tablet Take 1 tablet by mouth once daily. - potassium chloride (K-TAB) 10 mEq tablet Take 1 tablet by mouth once daily. - escitalopram oxalate (LEXAPRO) 10 mg tablet Take 1 tablet by mouth once daily. - gabapentin (NEURONTIN) 100 mg capsule Take 1 capsule by mouth daily at bedtime for 181 days. - atorvastatin (LIPITOR) 40 mg tablet Take 1 tablet by mouth once daily. - zolpidem (AMBIEN) 5 mg tablet Take 1 tablet by mouth at bedtime as needed (for insomnia.) for up to 90 days. - SAW PALMETTO ORAL Take by mouth once daily. - MAGNESIUM ORAL Take by mouth once daily. - COLLAGEN MISC - docosahexaenoic acid/epa (FISH OIL ORAL) Take by mouth once daily. - amLODIPine (NORVASC) 2.5 mg tablet Take 1 tablet by mouth once daily. - cevimeline (EVOXAC) 30 mg capsule Take 1 capsule by mouth three times a day. - buPROPion SR (WELLBUTRIN SR) 100 mg 12 hr tablet Take 1 tablet by mouth once daily. - estradiol (VIVELLE-DOT) 0.1 mg/24 hr patch Apply 1 Patch as directed two times a week. TWICE WEEKLY - fluticasone (FLONASE) 50 mcg/actuation nasal spray Use 2 Sprays in each nostril once daily. Rinse mouth after use. - omeprazole (PRILOSEC) 20 mg capsule Take 1 capsule by mouth once daily. - lisinopril-hydroCHLOROt hiazide (ZESTORETIC) 10-12.5 mg per tablet Take 1 tablet by mouth once daily. - cyclobenzaprine (FLEXERIL) 10 mg tablet Take 1 tablet by mouth two times a day as needed. - cyanocobalamin, vitamin B-12, (VITAMIN B-12 ORAL) Take by mouth once daily. - L.acid/B.animalis,bifid um/FOS (PROBIOTIC COMPLEX ORAL) Take by mouth once daily. - biotin/calcium carbonate (BIOTIN-CALCIUM ORAL) Take by mouth. - vitamin B complex (B COMPLEX-VITAMIN B12 ORAL) Take by mouth once daily. - aspirin, enteric coated (ASPIR-LOW) 81 mg EC tablet Take 1 tablet by mouth once daily. 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] 04/15/2017 Mixed hyperlipidemia [E78.2] 04/15/2017 BPPV (benign paroxysmal positional vertigo) [H8*04/15/2017 Nausea [R11.0] 01/29/2018 Bilateral upper abdominal pain [R10.11, R10.12] 01/29/2018 Secondary glaucoma, indeterminate stage, 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 Normal [facility] 03-31-2025 [facility] Telephone (INTMWS) ALLIE LYNN ([id number]) 1970 F [place] Date Time Provider Department 03/31/25 IFEOMA DAVIS INTMWS During your visit today, we recorded the following information about you: Mallory Morrison RN 03/31/2025 10:38 AM Signed Patient calls to report that she needs a refill of trazodone and it is too soon to refill as prescription on file is for one tablet at bedtime and she was instructed at her last visit she could take two tablets. Reviewed OV notes and didn't see anything in regards to increasing dose. Pended 100 mg dose for review. Please review and advise, BRITTANY Lanza Chitra, MD 03/31/2025 12:59 PM Signed Ordered as requested Regards, Ifeoma Davis MD Allergies As of Date: 03/31/2025 Noted Allergy Reaction DARVOCET A500 (PROPOXYPHENE N-GABRIEL*04/28/2012 1 - Mental Status Change NITROFURANTOIN 03/05/2020 14 - Other: See Comments Comments: Loss of conciousness PROPOXYPHENE 03/05/2020 14 - Other: See Comments Comments: Hallucinations TRAMADOL 03/05/2020 14 - Other: See Comments Comments: Loss of conciousness HYDROCODONE BITARTRATE 10/19/2017 9 - Itching OPIOIDS - MORPHINE ANALOGUES 03/05/2020 9 - Itching ULTRAM (TRAMADOL HCL) 03/12/2006 11 - Vomiting VICODIN (HYDROCODONE-ACETAMINOP HE*04/28/2012 9 - Itching Date Reviewed: 03/25/2025 Reviewed by: Spring Hernandez RN - Fully Assessed Reason for Visit: Medication Problem [65] Visit Diagnosis:Insomnia, unspecified type [G47.00] Order(s):traZODone (DESYREL) 100 mg tabletTake 1 tablet by mouth daily at bedtime.Disp: 90 tabletRfl: 1 Prescriptions as of 03/31/2025 - traZODone (DESYREL) 100 mg tablet Take 1 tablet by mouth daily at bedtime. - erythromycin (ROMYCIN) 5 mg/gram (0.5 %) ophthalmic ointment Use 1 application in the left eye three times a day. - tobramycin-dexAMETHason e (TOBRADEX) 0.3-0.1 % ophthalmic suspension Use 1 drop in the left eye four times daily. - moxifloxacin (VIGAMOX) 0.5 % ophthalmic solution Use in the left eye three times a day. - meloxicam (MOBIC) 15 mg tablet Take 1 tablet by mouth once daily. - potassium chloride (K-TAB) 10 mEq tablet Take 1 tablet by mouth once daily. - escitalopram oxalate (LEXAPRO) 10 mg tablet Take 1 tablet by mouth once daily. - gabapentin (NEURONTIN) 100 mg capsule Take 1 capsule by mouth daily at bedtime for 181 days. - atorvastatin (LIPITOR) 40 mg tablet Take 1 tablet by mouth once daily. - zolpidem (AMBIEN) 5 mg tablet Take 1 tablet by mouth at bedtime as needed (for insomnia.) for up to 90 days. - SAW PALMETTO ORAL Take by mouth once daily. - MAGNESIUM ORAL Take by mouth once daily. - COLLAGEN MISC - docosahexaenoic acid/epa (FISH OIL ORAL) Take by mouth once daily. - amLODIPine (NORVASC) 2.5 mg tablet Take 1 tablet by mouth once daily. - cevimeline (EVOXAC) 30 mg capsule Take 1 capsule by mouth three times a day. - buPROPion SR (WELLBUTRIN SR) 100 mg 12 hr tablet Take 1 tablet by mouth once daily. - estradiol (VIVELLE-DOT) 0.1 mg/24 hr patch Apply 1 Patch as directed two times a week. TWICE WEEKLY - fluticasone (FLONASE) 50 mcg/actuation nasal spray Use 2 Sprays in each nostril once daily. Rinse mouth after use. - omeprazole (PRILOSEC) 20 mg capsule Take 1 capsule by mouth once daily. - lisinopril-hydroCHLOROt hiazide (ZESTORETIC) 10-12.5 mg per tablet Take 1 tablet by mouth once daily. - cyclobenzaprine (FLEXERIL) 10 mg tablet Take 1 tablet by mouth two times a day as needed. - cyanocobalamin, vitamin B-12, (VITAMIN B-12 ORAL) Take by mouth once daily. - L.acid/B.animalis,bifid um/FOS (PROBIOTIC COMPLEX ORAL) Take by mouth once daily. - biotin/calcium carbonate (BIOTIN-CALCIUM ORAL) Take by mouth. - vitamin B complex (B COMPLEX-VITAMIN B12 ORAL) Take by mouth once daily. - aspirin, enteric coated (ASPIR-LOW) 81 mg EC tablet Take 1 tablet by mouth once daily. 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 Normal [facility] Cassi 03-30-2025 [facility] Telephone (OPHTMN) ALLIE LYNN ([id number]) 1970 F LV Date Time Provider Department 03/30/25 ADRIANA LUND OPHENRIUQEN During your visit today, we recorded the following information about you: Gely Plascencia 03/30/2025 2:48 PM Signed The patient reports experiencing tearing from the left eye approximately four to five times daily. Is this considered normal? [phone] sx: 03/25/2025 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 [[id number]] - Eye - Left Adriana Lund MD 03/30/2025 5:23 PM Signed YES. I can see her in [place] tomorrow (Sat) if she wants. Otherwise she has an appt Saturday with Dr. Ayala. I am on site and happy to come over if needed. Gely Plascencia 03/31/2025 8:18 AM Signed The patient has requested that you visit on Saturday to examine her eye. Adriana Lund MD 03/31/2025 12:04 PM Signed I moved her back to my Saturday clinic schedule - I will see her Saturday instead of Gely Kiser 03/31/2025 12:13 PM Signed I contacted the patient and left a voicemail informing her that you will be seeing her instead of the other physician. Just a heads-up. Allergies As of Date: 03/30/2025 Noted Allergy Reaction DARVOCET A500 (PROPOXYPHENE N-GABRIEL*04/28/2012 1 - Mental Status Change NITROFURANTOIN 03/05/2020 14 - Other: See Comments Comments: Loss of conciousness PROPOXYPHENE 03/05/2020 14 - Other: See Comments Comments: Hallucinations TRAMADOL 03/05/2020 14 - Other: See Comments Comments: Loss of conciousness HYDROCODONE BITARTRATE 10/19/2017 9 - Itching OPIOIDS - MORPHINE ANALOGUES 03/05/2020 9 - Itching ULTRAM (TRAMADOL HCL) 03/12/2006 11 - Vomiting VICODIN (HYDROCODONE-ACETAMINOP HE*04/28/2012 9 - Itching Date Reviewed: 03/25/2025 Reviewed by: Spring Hernandez RN - Fully Assessed Reason for Visit: Tearing OS [1940] Prescriptions as of 03/31/2025 - erythromycin (ROMYCIN) 5 mg/gram (0.5 %) ophthalmic ointment Use 1 application in the left eye three times a day. - tobramycin-dexAMETHason e (TOBRADEX) 0.3-0.1 % ophthalmic suspension Use 1 drop in the left eye four times daily. - moxifloxacin (VIGAMOX) 0.5 % ophthalmic solution Use in the left eye three times a day. - meloxicam (MOBIC) 15 mg tablet Take 1 tablet by mouth once daily. - potassium chloride (K-TAB) 10 mEq tablet Take 1 tablet by mouth once daily. - escitalopram oxalate (LEXAPRO) 10 mg tablet Take 1 tablet by mouth once daily. - gabapentin (NEURONTIN) 100 mg capsule Take 1 capsule by mouth daily at bedtime for 181 days. - atorvastatin (LIPITOR) 40 mg tablet Take 1 tablet by mouth once daily. - zolpidem (AMBIEN) 5 mg tablet Take 1 tablet by mouth at bedtime as needed (for insomnia.) for up to 90 days. - SAW PALMETTO ORAL Take by mouth once daily. - MAGNESIUM ORAL Take by mouth once daily. - COLLAGEN MISC - docosahexaenoic acid/epa (FISH OIL ORAL) Take by mouth once daily. - amLODIPine (NORVASC) 2.5 mg tablet Take 1 tablet by mouth once daily. - cevimeline (EVOXAC) 30 mg capsule Take 1 capsule by mouth three times a day. - traZODone (DESYREL) 50 mg tablet Take 1 tablet by mouth daily at bedtime. - buPROPion SR (WELLBUTRIN SR) 100 mg 12 hr tablet Take 1 tablet by mouth once daily. - estradiol (VIVELLE-DOT) 0.1 mg/24 hr patch Apply 1 Patch as directed two times a week. TWICE WEEKLY - fluticasone (FLONASE) 50 mcg/actuation nasal spray Use 2 Sprays in each nostril once daily. Rinse mouth after use. - omeprazole (PRILOSEC) 20 mg capsule Take 1 capsule by mouth once daily. - lisinopril-hydroCHLOROt hiazide (ZESTORETIC) 10-12.5 mg per tablet Take 1 tablet by mouth once daily. - cyclobenzaprine (FLEXERIL) 10 mg tablet Take 1 tablet by mouth two times a day as needed. - cyanocobalamin, vitamin B-12, (VITAMIN B-12 ORAL) Take by mouth once daily. - L.acid/B.animalis,bifid um/FOS (PROBIOTIC COMPLEX ORAL) Take by mouth once daily. - biotin/calcium carbonate (BIOTIN-CALCIUM ORAL) Take by mouth. - vitamin B complex (B COMPLEX-VITAMIN B12 ORAL) Take by mouth once daily. - aspirin, enteric coated (ASPIR-LOW) 81 mg EC tablet Take 1 tablet by mouth once daily. 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 [facility] ALLIE [facility]YNN ([id number]) 1970 F LV Date Time Provider Department 03/26/25 BRITTANEY MCKEON [facility] During your visit today, we recorded the following information about you: Brittaney Mckeon MD 03/26/2025 8:50 PM Addendum Received page that patient had called with concern over eye tearing. Spoke to them on the phone: Patient is POD1 of revision of trabeculectomy bleb of the left eye with Dr. Lund. Attempted to call 2x and went to . Left voicemail encouraging to call back and provided return and callback precautions. Patient then called back and said the fluid is decreasing in frequency and no severe pain but does have foreign body sensation at times due to a stitch. Says she has no ointment. Will provide erythromycin ointment to help with FBS from stitch in her eye. Discussed importance of one week follow up with Dr. Emanuel on 04/02/2025. Return precautions given. If any significant change in symptoms, worsening of vision, pain or new symptoms please don't hesitate to call back or go to the ED. The eye clinic can be reached at [phone] and you can ask to speak to the transcription specialist local hazmat driver. Brittaney Mckeon MD Ophthalmology Resident, [facility] Brittaney Mckeon MD 03/26/2025 8:50 PM Signed Addended by: BRITTANEY MCKEON on: 03/26/2025 08:50 PM Modules accepted: Orders Allergies As of Date: 03/26/2025 Noted Allergy Reaction DARVOCET A500 (PROPOXYPHENE N-GABRIEL*04/28/2012 1 - Mental Status Change NITROFURANTOIN 03/05/2020 14 - Other: See Comments Comments: Loss of conciousness PROPOXYPHENE 03/05/2020 14 - Other: See Comments Comments: Hallucinations TRAMADOL 03/05/2020 14 - Other: See Comments Comments: Loss of conciousness HYDROCODONE BITARTRATE 10/19/2017 9 - Itching OPIOIDS - MORPHINE ANALOGUES 03/05/2020 9 - Itching ULTRAM (TRAMADOL HCL) 03/12/2006 11 - Vomiting VICODIN (HYDROCODONE-ACETAMINOP HE*04/28/2012 9 - Itching Date Reviewed: 03/25/2025 Reviewed by: Spring Hernandez RN - Fully Assessed Primary Visit Diagnosis:Status post glaucoma surgery [Z98.83] Order(s):erythromycin (ROMYCIN) 5 mg/gram (0.5 %) ophthalmic ointmentUse 1 application in the left eye three times a day.Disp: 3.5 gRfl: 1 Prescriptions as of 03/26/2025 - erythromycin (ROMYCIN) 5 mg/gram (0.5 %) ophthalmic ointment Use 1 application in the left eye three times a day. - tobramycin-dexAMETHason e (TOBRADEX) 0.3-0.1 % ophthalmic suspension Use 1 drop in the left eye four times daily. - moxifloxacin (VIGAMOX) 0.5 % ophthalmic solution Use in the left eye three times a day. - meloxicam (MOBIC) 15 mg tablet Take 1 tablet by mouth once daily. - potassium chloride (K-TAB) 10 mEq tablet Take 1 tablet by mouth once daily. - escitalopram oxalate (LEXAPRO) 10 mg tablet Take 1 tablet by mouth once daily. - gabapentin (NEURONTIN) 100 mg capsule Take 1 capsule by mouth daily at bedtime for 181 days. - atorvastatin (LIPITOR) 40 mg tablet Take 1 tablet by mouth once daily. - zolpidem (AMBIEN) 5 mg tablet Take 1 tablet by mouth at bedtime as needed (for insomnia.) for up to 90 days. - SAW PALMETTO ORAL Take by mouth once daily. - MAGNESIUM ORAL Take by mouth once daily. - COLLAGEN MISC - docosahexaenoic acid/epa (FISH OIL ORAL) Take by mouth once daily. - amLODIPine (NORVASC) 2.5 mg tablet Take 1 tablet by mouth once daily. - cevimeline (EVOXAC) 30 mg capsule Take 1 capsule by mouth three times a day. - traZODone (DESYREL) 50 mg tablet Take 1 tablet by mouth daily at bedtime. - buPROPion SR (WELLBUTRIN SR) 100 mg 12 hr tablet Take 1 tablet by mouth once daily. - estradiol (VIVELLE-DOT) 0.1 mg/24 hr patch Apply 1 Patch as directed two times a week. TWICE WEEKLY - fluticasone (FLONASE) 50 mcg/actuation nasal spray Use 2 Sprays in each nostril once daily. Rinse mouth after use. - omeprazole (PRILOSEC) 20 mg capsule Take 1 capsule by mouth once daily. - lisinopril-hydroCHLOROt hiazide (ZESTORETIC) 10-12.5 mg per tablet Take 1 tablet by mouth once daily. - cyclobenzaprine (FLEXERIL) 10 mg tablet Take 1 tablet by mouth two times a day as needed. - cyanocobalamin, vitamin B-12, (VITAMIN B-12 ORAL) Take by mouth once daily. - L.acid/B.animalis,bifid um/FOS (PROBIOTIC COMPLEX ORAL) Take by mouth once daily. - biotin/calcium carbonate (BIOTIN-CALCIUM ORAL) Take by mouth. - vitamin B complex (B COMPLEX-VITAMIN B12 ORAL) Take by mouth once daily. - aspirin, enteric coated (ASPIR-LOW) 81 mg EC tablet Take 1 tablet by mouth once daily. 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 Normal [facility] ANES POSTPROC EVALon 03-25- 025 ANES POSTPROC EVAL HNO ID: [id number] Author: JUSTINE GALVAN MD Service: ? Author Type: Anesthesiologist Type: Anesthesia Postprocedure Evaluation Filed: 03/25/2025 13:36 Note Text: POST ANESTHESIA EVALUATION NOTE : 1970 Procedure Summary Date: 03/25/25 Room / Location: [place] [address] / [facility] Anesthesia Start: 1140 Anesthesia Stop: 1232 Procedure: 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 (Left: Eye) Diagnosis: Leaking of conjunctival drainage bleb (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, T81.31XA]) Surgeons: Adriana Lund MD Responsible Provider: Justine Galvan MD Anesthesia Type: MAC ASA Status: 2 Anesthesia Type: MAC Last Vitals Vitals Value Taken Time BP 98/51 03/25/25 1250 Temp 36.8 ?C (98.2 ?F) 03/25/25 1232 Pulse 73 03/25/25 1250 Resp 16 03/25/25 1247 SpO2 100 % 03/25/25 1250 Vitals shown include unfiled device data. Post Anesthesia Patient Status Patient Evaluation: PACU. PACU/ICU Patient Condition: stable. Anticipated Disposition: phase 2 then home. Neurological Status: aware and responsive. Pulmonary Status: breathing comfortably on room air Airway Control: returned to baseline unsupported. Cardiovascular Status: stable. Pain Management: clinically adequate Postoperative Hydration: acceptable. Intraoperative Events: no significant anesthesia events Post Operative Nausea/Vomiting Status: no significant post operative nausea or vomiting Recommendation: further care per PACU/ICU/floor team. Anesthesia Observations No Documentation SIGNATURE: Justine Galvan MD PATIENT NAME: Allie Lynn DATE: March 25, 2025 TIME: 1:36 PM CSN: [id number] Normal [facility] ANES PRE-OPon 03-25-2025 ANES PRE-OP HNO ID: [id number] Author: JUSTINE GALVAN MD Service: ? Author Type: Anesthesiologist Type: Anesthesia Preprocedure Evaluation Filed: 03/25/2025 10:55 Note Text: ANESTHESIOLOGY DAY OF SURGERY NOTE : 1970 Procedure Information Date/Time: 03/25/25 1201 Procedure: 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 (Left: Eye) Location: [place] [address] / [facility] Surgeons: Adriana Lund MD Estimated body mass index is 27.78 kg/m? as calculated from the following: Height as of 03/24/25: 154.9 cm (5' 1). Weight as of 03/24/25: 66.7 kg (147 lb). Most recent hematocrit and potassium results: Hematocrit 36.8 03/24/2025 Potassium 4.1 03/24/2025 Relevant Problems ANESTHESIA (+) DAYSI (obstructive sleep apnea) CARDIO (+) Carotid atherosclerosis (+) Choroidal neovascular membrane (+) Hypertension (+) PAD (peripheral artery disease) PULMONARY (+) DAYSI (obstructive sleep apnea) Other (+) Patellar tendinitis I - PHYSICAL EVALUATION AIRWAY Patient intubated: No. Tracheostomy tube not present Mallampati: II. TM distance: >3 FB. Neck ROM: full ROM without neurological symptoms. Mouth opening: adequate. Short neck: no. Thick neck: no DENTAL Dental findings: teeth intact. II - ANESTHESIA PLAN ASA Score: 2 Anesthetic Plan: MAC The patient is not a current smoker. NPO Status: adequate Beta Agustin Monitoring Plan Monitoring plan: standard ASA. Post Procedure Analgesic Plan Informed Consent Anesthetic risks, benefits, alternatives, personnel and consent discussed: yes. Patient / Responsible Constitution Party agrees to proceed: yes Patient / Surrogate agrees to blood products: blood products not planned Potential Anesthesia issues that may suggest increased risk of complications or contraindication to planned procedure: none. No vitals data found for the desired time range. Facility-Administered Medications as of 03/25/2025 Medication Dose Route Frequency lactated ringers iv infusion 30 mL/hr INTRAVENOUS CONTINUOUS Outpatient Medications as of 03/25/2025 Medication Sig moxifloxacin (VIGAMOX) 0.5 % ophthalmic solution Use in the left eye three times a day. timolol maleate (TIMOPTIC) 0.5 % ophthalmic solution Use 1 drop in the left eye two times a day. meloxicam (MOBIC) 15 mg tablet Take 1 tablet by mouth once daily. potassium chloride (K-TAB) 10 mEq tablet Take 1 tablet by mouth once daily. escitalopram oxalate (LEXAPRO) 10 mg tablet Take 1 tablet by mouth once daily. gabapentin (NEURONTIN) 100 mg capsule Take 1 capsule by mouth daily at bedtime for 181 days. atorvastatin (LIPITOR) 40 mg tablet Take 1 tablet by mouth once daily. zolpidem (AMBIEN) 5 mg tablet Take 1 tablet by mouth at bedtime as needed (for insomnia.) for up to 90 days. SAW PALMETTO ORAL Take by mouth once daily. MAGNESIUM ORAL Take by mouth once daily. COLLAGEN MISC docosahexaenoic acid/epa (FISH OIL ORAL) Take by mouth once daily. amLODIPine (NORVASC) 2.5 mg tablet Take 1 tablet by mouth once daily. cevimeline (EVOXAC) 30 mg capsule Take 1 capsule by mouth three times a day. (Patient taking differently: Take 30 mg by mouth once daily.) traZODone (DESYREL) 50 mg tablet Take 1 tablet by mouth daily at bedtime. buPROPion SR (WELLBUTRIN SR) 100 mg 12 hr tablet Take 1 tablet by mouth once daily. estradiol (VIVELLE-DOT) 0.1 mg/24 hr patch Apply 1 Patch as directed two times a week. TWICE WEEKLY (Patient taking differently: Apply 1 patch as directed one time a week.) fluticasone (FLONASE) 50 mcg/actuation nasal spray Use 2 Sprays in each nostril once daily. Rinse mouth after use. omeprazole (PRILOSEC) 20 mg capsule Take 1 capsule by mouth once daily. lisinopril-hydroCHLOROt hiazide (ZESTORETIC) 10-12.5 mg per tablet Take 1 tablet by mouth once daily. cyclobenzaprine (FLEXERIL) 10 mg tablet Take 1 tablet by mouth two times a day as needed. cyanocobalamin, vitamin B-12, (VITAMIN B-12 ORAL) Take by mouth once daily. L.acid/B.animalis,bifid um/FOS (PROBIOTIC COMPLEX ORAL) Take by mouth once daily. biotin/calcium carbonate (BIOTIN-CALCIUM ORAL) Take by mouth. vitamin B complex (B COMPLEX-VITAMIN B12 ORAL) Take by mouth once daily. aspirin, enteric coated (ASPIR-LOW) 81 mg EC tablet Take 1 tablet by mouth once daily. I have interviewed and examined the patient. I have reviewed the medical record and/or the pre-anesthesia evaluation, pertinent labs, and test results. This contains updated information obtained within 48 hours of Surgery/Procedure. SIGNATURE: Justine Galvan MD PATIENT NAME: Allie Lynn DATE: March 25, 2025 TIME: 10:55 AM CSN: [id number] Normal [facility] OPERATIVE NOon 03-25-2025 OPERATIVE NO HNO ID: [id number] Author: ADRIANA LUND MD Service: Ophthalmology Author Type: Physician Type: Operative Report Filed: 03/25/2025 12:38 Note Text: OPERATIVE REPORT NAME: Allie Lynn LOG ID: [id number] SURGERY DATE: 03/25/2025 INCISION/PROCEDURE START TIME: 11:54 AM INCISION CLOSE/PROCEDURE END TIME: 12:25 PM Surgeons and Role: * Adriana Lund MD - Primary * Marquita Mclean MD - Fellow OPERATION: Revision of trabeculectomy bleb, left eye ANESTHESIA: Retrobulbar consisting of equal parts 2% lidocaine and 0.75% bupivacaine PREOPERATIVE DIAGNOSIS: 1) Filtering bleb leak, left eye. 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 OPERATIVE FINDINGS: OPERATIVE PROCEDURE: The patient was taken to the operating room where intravenous sedation was administered and the above-mentioned anesthetic was injected in a retrobulbar fashion. The operative eye was then prepped with povidone-iodine and sterilely draped. Under the operating microscope, a 7-0 silk was placed through the superior clear cornea and clipped to the drapes to infraduct the eye. A conjunctival peritomy was made in healthy tissue around the bleb. Posterior dissection was used to mobile a conjunctival advancement flap off a broad swatch of Tenon's in the superior quadrant. Cautery was used sparingly for hemostasis. A superonasal paracentesis was made. The epithelium was then removed from the bleb and the limbus with cautery and dry Weck-cell sponges. The bleb was then entered posteriorly to allow aqueous to flow posteriorly out of the bleb. The conjunctival advancement flap was then advanced over the denuded bleb and up to the limbus and secured with 9-0 Vicryl sutures. The anterior chamber was reformed. There was still a leak at the limbus so this was closed with a compression suture centrally at the limbus. At this point the bleb was water-tight. The traction suture was removed along with the speculum and drapes. Maxitrol ointment was instilled before securing an eye patch and shield. IMPLANTABLE DEVICES: * No implants in log * ESTIMATED BLOOD LOSS: Minimal COMPLICATIONS: None DRAINS: None SPECIMENS: None No qualified resident was available and a skilled social work assistant was necessary to complete the case I/primary surgeon/proceduralist performed the procedure with assistance. The fellow was needed for exposure of tissues and assistance with hemostasis. Adriana Lund M.D. [facility] Basic metabolic 2000 panelOr dered By: Mahsa Aponte on 03-24-2025 Anion gap [Moles/Vol] 12 mmol/L 8 - 15 mmol/L [facility] Calcium [Mass/Vol] 9.6 mg/dL 8.5 - 10. 2 mg/dL [facility] Chloride [Moles/Vol] 99 mmol/L 98 - 10 7 mmol/L [facility] CO2 [Moles/Vol] 25 mmol/L 22 - 30 mmol/L [facility] Creatinine [Mass/Vol] 0.99 mg/dL High 0.58 - 0.96 mg/dL [facility] GFR/1.73 sq M.predicted among non-blacks MDRD (S/P/Bld) [Vol rate/Area] 67 mL/min/{1.73_m2} - PINF [facility] Comment on above: Estimated Glomerular Filtration Rate (eGFR) is calculated using the 2020 CKD-EPI creatinine equation. This equation utilizes serum creatinine, sex, and age as parameters. The creatinine assay has traceable calibration to isotope dilution-mass spectrometry. Refer to KDIGO guidelines for clinical interpretation. In patients with unstable renal function, e.g. those with acute kidney injury, the eGFR may not accurately reflect actual GFR. Glucose [Mass/Vol] 94 mg/dL 74 - 99 mg/dL [facility] Comment on above: The [place] Diabete s Association (ADA) provides guidance for cutoff values for fasting glucose and random glucose. The ADA defines fasting as no caloric intake for at least 8 hours. Fasting plasma glucose results between 100 to 125 mg/dL indicate increased risk for diabetes (prediabetes). Fasting plasma glucose results greater than or equal to 126 mg/dL meet the criteria for diagnosis of diabetes. In the absence of unequivocal hyperglycemia, results should be confirmed by repeat testing. In a patient with classic symptoms of hyperglycemia or hyperglycemic crisis, random plasma glucose results greater than or equal to 200 mg/dL meet the criteria for diagnosis of diabetes. Reference: Standards of Medical Care in Diabetes 2016, [place] [employer]. Diabetes Care. 2016.39(Suppl 1). Interpretation and review of laboratory results Abnormal [facility] Potassium [Moles/Vol] 4.1 mmol/L 3.7 - 5.1 mmol/L [facility] Sodium [Moles/Vol] 136 mmol/L 136 - 144 mmol/L [facility] Urea nitrogen [Mass/Vol] 20 mg/dL 7 - 21 mg/dL [facility] Basic metabolic 2000 panelon 03-24-2025 Anion gap [Moles/Vol] 12 mmol/L Normal 8-15 [facility] Comment on above: Order Comment: Speci men Type: BLOOD SPECIMEN Ordering Facility: [facility] Address: [address] [place] [address] Performed By: #### 5 7021-8 #### [facility] CLIA [id number] [address] [place] [address] [place] Calcium [Mass/Vol] 9.6 mg/dL Normal 8.5-10.2 [facility] Comment on above: Order Comment: Speci men Type: BLOOD SPECIMEN Ordering Facility: [facility] Address: [address] [place] [address] Performed By: #### 5 7021-8 #### [facility] CLIA [id number] [address] [place] [address] [place] Chloride [Moles/Vol] 99 mmol/L Normal 98-107 [facility] Comment on above: Order Comment: Speci men Type: BLOOD SPECIMEN Ordering Facility: [facility] Address: [address] [place] [address] Performed By: #### 5 7021-8 #### [facility] CLIA [id number] [address] [place] [address] [place] CO2 [Moles/Vol] 25 mmol/L Normal 22-30 [facility] Comment on above: Order Comment: Speci men Type: BLOOD SPECIMEN Ordering Facility: [facility] Address: [address] [place] [address] Performed By: #### 5 7021-8 #### [facility] CLIA [id number] [address] [place] [address] [place] Creatinine [Mass/Vol] 0.99 mg/dL High 0.58-0.96 [facility] Comment on above: Order Comment: Speci men Type: BLOOD SPECIMEN Ordering Facility: [facility] Address: [address] [place] [address] Performed By: #### 5 7021-8 #### [facility] CLIA [id number] [address] [place] [address] [place] eGFRcr SerPlBld CKD-EPI 2020 67 mL/min/1.73m??? Normal >=60 [facility] Comment on above: Order Comment: Brandan eaton Type: BLOOD SPECIMEN Ordering Facility: [facility] Address: [address] [place] [address] Result Comment: Zaria mated Glomerular Filtration Rate (eGFR) is calculated using the 2020 CKD-EPI creatinine equation. This equation utilizes serum creatinine, sex, and age as parameters. The creatinine assay has traceable calibration to isotope dilution-mass spectrometry. Refer to KDIGO guidelines for clinical interpretation. In patients with unstable renal function, e.g. those with acute kidney injury, the eGFR may not accurately reflect actual GFR. Performed By: #### 5 7021-8 #### [facility] CLIA [id number] [address] [place] [address] [place] Glucose [Mass/Vol] 94 mg/dL Normal 74-99 [facility] Comment on above: Order Comment: Brandan eaton Type: BLOOD SPECIMEN Ordering Facility: [facility] Address: [address] [place] [address] Result Comment: The [place] [employer] Association (ADA) provides guidance for cutoff values for fasting glucose and random glucose. The ADA defines fasting as no caloric intake for at least 8 hours. Fasting plasma glucose results between 100 to 125 mg/dL indicate increased risk for diabetes (prediabetes). Fasting plasma glucose results greater than or equal to 126 mg/dL meet the criteria for diagnosis of diabetes. In the absence of unequivocal hyperglycemia, results should be confirmed by repeat testing. In a patient with classic symptoms of hyperglycemia or hyperglycemic crisis, random plasma glucose results greater than or equal to 200 mg/dL meet the criteria for diagnosis of diabetes. Reference: Standards of Medical Care in Diabetes 2016, [place] [employer]. Diabetes Care. 2016.39(Suppl 1). Performed By: #### 5 7021-8 #### [facility] CLIA [id number] [address] [place] [address] [place] Potassium [Moles/Vol] 4.1 mmol/L Normal 3.7-5.1 [facility] Comment on above: Order Comment: Speci men Type: BLOOD SPECIMEN Ordering Facility: [facility] Address: [address] [place] [address] Performed By: #### 5 7021-8 #### [facility] CLIA [id number] [address] STATES OF [facility] Sodium [Moles/Vol] 136 mmol/L Normal 136-144 [facility] Comment on above: Order Comment: Speci men Type: BLOOD SPECIMEN Ordering Facility: [facility] Address: [address] [place] [address] Performed By: #### 5 7021-8 #### [facility] CLIA [id number] [address] [place] Urea nitrogen [Mass/Vol] 20 mg/dL Normal 7-21 [facility] Comment on above: Order Comment: Speci men Type: BLOOD SPECIMEN Ordering Facility: [facility] Address: [address] [place] [address] Performed By: #### 5 7021-8 #### [facility] CLIA [id number] [address] [place] CBC W Auto Differential pane l (Bld)on 03-24-2025 Basophils (Bld) [#/Vol] 0.05 10*3/uL [facility] Basophils/100 WBC (Bld) 0.6 % [facility] Differential cell count method Nom (Bld) Auto [facility] Eosinophils (Bld) [#/Vol] 0.23 10*3/uL [facility] Eosinophils/100 WBC (Bld) 2.9 % [facility] Erythrocyte distribution width (RBC) [Ratio] 12.7 % 11.5 - 15.0 % [facility] Hematocrit (Bld) [Volume fraction] 36.8 % 36.0 - 46.0 % [facility] Hemoglobin (Bld) [Mass/Vol] 12.1 g/dL 11.5 - 15.5 g/dL [facility] Immature granulocytes (Bld) [#/Vol] 0.04 10*3/uL [facility] Immature granulocytes/100 WBC (Bld) 0.5 % [facility] Lymphocytes (Bld) [#/Vol] 1.31 10*3/uL [facility] Lymphocytes/100 WBC (Bld) 16.7 % [facility] MCH (RBC) [Entitic mass] 29.9 pg 26.0 - 34.0 pg [facility] MCHC (RBC) [Mass/Vol] 32.9 g/dL 30.5 - 36.0 g/dL [facility] MCV (RBC) [Entitic vol] 90.9 fL 80.0 - 100.0 fL [facility] Monocytes (Bld) [#/Vol] 0.85 10*3/uL NINF [facility] Monocytes/100 WBC (Bld) 10.8 % [facility] Neutrophils (Bld) [#/Vol] 5.38 10*3/uL [facility] Neutrophils/100 WBC (Bld) 68.5 % [facility] Nucleated RBC (Bld) [#/Vol] NINF [facility] Nucleated RBC/100 WBC (Bld) [Ratio] 0 % /100 WBC [facility] Platelet mean volume (Bld) [Entitic vol] 9.8 fL 9.0 - 12.7 fL [facility] Platelets (Bld) [#/Vol] 375 10*3/uL [facility] RBC (Bld) [#/Vol] 4.05 10*6/uL 3.90 - 5.2 0 m/uL [facility] WBC (Bld) [#/Vol] 7.86 10*3/uL [facility] Basophils (Bld) [#/Vol] 0.05 10*3/uL Normal <0.11 [facility] Comment on above: Order Comment: Speci men Type: BLOOD SPECIMEN Ordering Facility: [facility] Address: [address] [place] [address] Performed By: #### 5 7021-8 #### [facility] [id number] [address] [place] [address] [place] Basophils/100 WBC (Bld) 0.6 % Normal [facility] Comment on above: Order Comment: Speci men Type: BLOOD SPECIMEN Ordering Facility: [facility] Address: [address] [place] [address] Performed By: #### 5 7021-8 #### [facility] CLIA [id number] [address] [place] [address] [place] Differential cell count method Nom (Bld) Auto Normal [facility] Comment on above: Order Comment: Speci men Type: BLOOD SPECIMEN Ordering Facility: [facility] Address: [address] [place] [address] Performed By: #### 5 7021-8 #### [facility] CLIA [id number] [address] [place] [address] [place] Eosinophils (Bld) [#/Vol] 0.23 10*3/uL Normal <0.46 [facility] Comment on above: Order Comment: Speci men Type: BLOOD SPECIMEN Ordering Facility: [facility] Address: [address] [place] [address] Performed By: #### 5 7021-8 #### [facility] CLIA [id number] [address] [place] [address] [place] Eosinophils/100 WBC (Bld) 2.9 % Normal [facility] Comment on above: Order Comment: Speci men Type: BLOOD SPECIMEN Ordering Facility: [facility] Address: [address] [place] [address] Performed By: #### 5 7021-8 #### [facility] CLIA [id number] [address] [place] [address] [place] Erythrocyte distribution width (RBC) [Ratio] 12.7 % Normal 11.5-15.0 [facility] Comment on above: Order Comment: Speci men Type: BLOOD SPECIMEN Ordering Facility: [facility] Address: [address] [place] [address] Performed By: #### 5 7021-8 #### [facility] CLIA [id number] [address] [place] [address] [place] Hematocrit (Bld) [Volume fraction] 36.8 % Normal 36.0-46.0 [facility] Comment on above: Order Comment: Speci men Type: BLOOD SPECIMEN Ordering Facility: [facility] Address: [address] [place] [address] Performed By: #### 5 7021-8 #### [facility] CLIA [id number] [address] [place] [address] [place] Hemoglobin (Bld) [Mass/Vol] 12.1 g/dL Normal 11.5-15.5 [facility] Comment on above: Order Comment: Speci men Type: BLOOD SPECIMEN Ordering Facility: [facility] Address: [address] [place] [address] Performed By: #### 5 7021-8 #### [facility] CLIA [id number] [address] [place] [address] [place] Immature granulocytes (Bld) [#/Vol] 0.04 10*3/uL Normal <0.10 [facility] Comment on above: Order Comment: Speci men Type: BLOOD SPECIMEN Ordering Facility: [facility] Address: [address] [place] [address] Performed By: #### 5 7021-8 #### [facility] CLIA [id number] [address] [place] [address] [place] Immature granulocytes/100 WBC (Bld) 0.5 % Normal [facility] Comment on above: Order Comment: Speci men Type: BLOOD SPECIMEN Ordering Facility: [facility] Address: [address] [place] [address] Performed By: #### 5 7021-8 #### [facility] CLIA [id number] [address] [place] [address] [place] Lymphocytes (Bld) [#/Vol] 1.31 10*3/uL Normal 1.00-4.00 [facility] Comment on above: Order Comment: Speci men Type: BLOOD SPECIMEN Ordering Facility: [facility] Address: [address] [place] [address] Performed By: #### 5 7021-8 #### [facility] CLIA [id number] [address] [place] [address] STATES [facility] Lymphocytes/100 WBC (Bld) 16.7 % Normal [facility] Comment on above: Order Comment: Speci men Type: BLOOD SPECIMEN Ordering Facility: [facility] Address: [address] [place] [address] Performed By: #### 5 7021-8 #### [facility] CLIA [id number] [address] [place] [address] [place] MCH (RBC) [Entitic mass] 29.9 pg Normal 26.0-34.0 [facility] Comment on above: Order Comment: Speci men Type: BLOOD SPECIMEN Ordering Facility: [facility] Address: [address] [place] [address] Performed By: #### 5 7021-8 #### [facility] CLIA [id number] [address] [place] [address] [place] MCHC (RBC) [Mass/Vol] 32.9 g/dL Normal 30.5-36.0 [facility] Comment on above: Order Comment: Speci men Type: BLOOD SPECIMEN Ordering Facility: [facility] Address: [address] [place] [address] Performed By: #### 5 7021-8 #### [facility] CLIA [id number] [address] [place] [address] [place] MCV (RBC) [Entitic vol] 90.9 fL Normal 80.0-100.0 [facility] Comment on above: Order Comment: Speci men Type: BLOOD SPECIMEN Ordering Facility: [facility] Address: [address] [place] [address] Performed By: #### 5 7021-8 #### [facility] CLIA [id number] [address] [place] [address] [place] Monocytes (Bld) [#/Vol] 0.85 10*3/uL Normal <0.87 [facility] Comment on above: Order Comment: Speci men Type: BLOOD SPECIMEN Ordering Facility: [facility] Address: [address] [place] [address] Performed By: #### 5 7021-8 #### [facility] CLIA [id number] [address] [place] [address] [place] Monocytes/100 WBC (Bld) 10.8 % Normal [facility] Comment on above: Order Comment: Speci men Type: BLOOD SPECIMEN Ordering Facility: [facility] Address: [address] [place] [address] Performed By: #### 5 7021-8 #### [facility] CLIA [id number] [address] [place] [address] [place] Neutrophils (Bld) [#/Vol] 5.38 10*3/uL Normal 1.45-7.50 [facility] Comment on above: Order Comment: Speci men Type: BLOOD SPECIMEN Ordering Facility: [facility] Address: [address] [place] [address] Performed By: #### 5 7021-8 #### [facility] CLIA [id number] [address] [place] [address] [place] Neutrophils/100 WBC (Bld) 68.5 % Normal [facility] Comment on above: Order Comment: Speci men Type: BLOOD SPECIMEN Ordering Facility: [facility] Address: [address] [place] [address] Performed By: #### 5 7021-8 #### [facility] CLIA [id number] [address] [place] [address] [place] Nucleated RBC (Bld) [#/Vol] 10*3/uL Normal <0.01 [facility] Comment on above: Order Comment: Speci men Type: BLOOD SPECIMEN Ordering Facility: [facility] Address: [address] [place] [address] Performed By: #### 5 7021-8 #### [facility] CLIA [id number] [address] [place] [address] [place] Nucleated RBC/100 WBC (Bld) [Ratio] 0.0 /100 WBC Normal [facility] Comment on above: Order Comment: Speci men Type: BLOOD SPECIMEN Ordering Facility: [facility] Address: [address] [place] [address] Performed By: #### 5 7021-8 #### [facility] CLIA [id number] [address] [place] [address] [place] Platelet mean volume (Bld) [Entitic vol] 9.8 fL Normal 9.0-12.7 [facility] Comment on above: Order Comment: Speci men Type: BLOOD SPECIMEN Ordering Facility: [facility] Address: [address] [place], [place] [address] Performed By: #### 5 7021-8 #### [facility] CLIA [id number] [address] [place] [address] [place] Platelets (Bld) [#/Vol] 375 10*3/uL Normal 150-400 [facility] Comment on above: Order Comment: Speci men Type: BLOOD SPECIMEN Ordering Facility: [facility] Address: [address] [place] [address] Performed By: #### 5 7021-8 #### [facility] CLIA [id number] [address] [place] [address] [place] RBC (Bld) [#/Vol] 4.05 10*6/uL Normal 3.90-5.20 [facility] Comment on above: Order Comment: Speci men Type: BLOOD SPECIMEN Ordering Facility: [facility] Address: [address] [place] [address] Performed By: #### 5 7021-8 #### [facility] CLIA [id number] [address] [place] [address] [place] WBC (Bld) [#/Vol] 7.86 10*3/uL Normal 3.70-11.00 [facility] Comment on above: Order Comment: Speci men Type: BLOOD SPECIMEN Ordering Facility: [facility] Address: [facility] [place] [address] Performed By: #### 5 7021-8 #### [facility] CLIA [id number] [address] 03-24-2025 [facility] ALLIE LYNN ([id number]) 1970 F Date Time Provider Department 03/24/25 [facility] During your visit today, we recorded the following information about you: Jackelin Fields 03/24/2025 9:42 AM Signed Allie Lynn [facility]# [id number] Patient calling w/update BCL Contact not working Leaking fluid still, face is wet and sticky Janet Lowery MD filed at 03/23/2025 3:55 PM Status: Signed Urgent visit for bleb leak OS Sent by [facility] doctor for bleb leak OS X 4 days IOP was 0 yesterday Today 03/23/2025 Brisk leak OS - IOP 7.8 - AC deep - no choroidals - Discussed conservative management vs surgery, discussed R/B/A of each - BCL placed today 03/23/2025 - timolol BID OS, moxifloxacin QID OS - follow up with Dr. Lowery 04/06/25 - will post for bleb revision 04/12 and if still leaking 04/06 will revise 04/12 Adriana Lund MD 03/24/2025 2:21 PM Signed I told Dr. Lowery I would do the surgery. Yesteday while patient was seeing Dr. Lowery, Dr. Lowery reached out to me and I spoke to both Dr and patient via speakerphone. I explained the risks of the surgery, explained I am willing to do the revision but advise conservative measures first. Risks included ptosis, loss of IOP control necessitating more meds or additional surgery both of which were explained to be common. Patient was agreeable to conservative measures but called back today as documented below. Allergies As of Date: 03/24/2025 Noted Allergy Reaction ULTRAM (TRAMADOL HCL) 03/12/2006 11 - Vomiting DARVOCET A500 (PROPOXYPHENE N-GABRIEL*04/28/2012 1 - Mental Status Change HYDROCODONE BITARTRATE 10/19/2017 9 - Itching NITROFURANTOIN 03/05/2020 14 - Other: See Comments Comments: Loss of conciousness OPIOIDS - MORPHINE ANALOGUES 03/05/2020 9 - Itching PROPOXYPHENE 03/05/2020 14 - Other: See Comments Comments: Hallucinations TRAMADOL 03/05/2020 14 - Other: See Comments Comments: Loss of conciousness VICODIN (HYDROCODONE-ACETAMINOP HE*04/28/2012 9 - Itching Date Reviewed: 03/23/2025 Reviewed by: Saranya Buchanan OA - Fully Assessed Reason for Visit: Patient Question [3427] Prescriptions as of 03/24/2025 - moxifloxacin (VIGAMOX) 0.5 % ophthalmic solution Use in the left eye three times a day. - oxyCODONE-acetaminophen (PERCOCET) 5-325 mg tablet Take 1 tablet by mouth as directed. - timolol maleate (TIMOPTIC) 0.5 % ophthalmic solution Use 1 drop in the left eye two times a day. - meloxicam (MOBIC) 15 mg tablet Take 1 tablet by mouth once daily. - potassium chloride (K-TAB) 10 mEq tablet Take 1 tablet by mouth once daily. - escitalopram oxalate (LEXAPRO) 10 mg tablet Take 1 tablet by mouth once daily. - gabapentin (NEURONTIN) 100 mg capsule Take 1 capsule by mouth daily at bedtime for 181 days. - atorvastatin (LIPITOR) 40 mg tablet Take 1 tablet by mouth once daily. - CPAP/BIPAP/OTHER APAP 5-18 cmH2O DME [facility] - zolpidem (AMBIEN) 5 mg tablet Take 1 tablet by mouth at bedtime as needed (for insomnia.) for up to 90 days. - SAW PALMETTO ORAL Take by mouth once daily. - MAGNESIUM ORAL Take by mouth once daily. - COLLAGEN MISC - docosahexaenoic acid/epa (FISH OIL ORAL) Take by mouth once daily. - amLODIPine (NORVASC) 2.5 mg tablet Take 1 tablet by mouth once daily. - cevimeline (EVOXAC) 30 mg capsule Take 1 capsule by mouth three times a day. - traZODone (DESYREL) 50 mg tablet Take 1 tablet by mouth daily at bedtime. - buPROPion SR (WELLBUTRIN SR) 100 mg 12 hr tablet Take 1 tablet by mouth once daily. - estradiol (VIVELLE-DOT) 0.1 mg/24 hr patch Apply 1 Patch as directed two times a week. TWICE WEEKLY - progesterone micronized (PROMETRIUM) 100 mg capsule Take 1 capsule by mouth daily at bedtime. - fluticasone (FLONASE) 50 mcg/actuation nasal spray Use 2 Sprays in each nostril once daily. Rinse mouth after use. - omeprazole (PRILOSEC) 20 mg capsule Take 1 capsule by mouth once daily. - lisinopril-hydroCHLOROt hiazide (ZESTORETIC) 10-12.5 mg per tablet Take 1 tablet by mouth once daily. - cyclobenzaprine (FLEXERIL) 10 mg tablet Take 1 tablet by mouth two times a day as needed. - cyanocobalamin, vitamin B-12, (VITAMIN B-12 ORAL) Take by mouth once daily. - ibuprofen (MOTRIN) 800 mg tablet Take 1 tablet by mouth every 8 hours as needed for pain. Take with food. - mometasone (NASONEX) 50 mcg/actuation nasal spray USE 2 SPRAYS NASALLY ONCE DAILY. RINSE MOUTH AFTER USE. - L.acid/B.animalis,bifid um/FOS (PROBIOTIC COMPLEX ORAL) Take by mouth once daily. - biotin/calcium carbonate (BIOTIN-CALCIUM ORAL) Take by mouth. - vitamin B complex (B COMPLEX-VITAMIN B12 ORAL) Take by mouth once daily. - aspirin, enteric coated (ASPIR-LOW) 81 mg EC tablet Take 1 tablet by mouth once daily. Meds Comments as of 09/05/2021: 09/05/21 The medications (more content not included)... Normal [facility] HISTORY PHYSICALon HISTORY PHYSICAL HNO ID: [id number] Author: EMILY CHAPARRO APRN.HYDROGENATION STILL OPERATOR Service: ? Author Type: Nurse Practitioner Type: H&P Filed: 03/25/2025 09:13 Note Text: [facility] HISTORY AND PHYSICAL EXAMINATION SERVICE DATE: 03/24/2025 SERVICE TIME: 9:13 AM PRIMARY CARE PHYSICIAN: Ifeoma Davis MD Assessment Patient has the following medical conditions which may affect kathleen-operative course: Hypertension Assessment: controlled on rx Last 14 BP Last 14 Encounter BP Readings: Date: BP: 03/24/2025 108/66 12/29/2024 112/66 11/03/2024 114/78 10/31/2024 141/88 10/12/2024 106/63 10/07/2024 124/62 09/29/2024 138/88 09/24/2024 122/81 09/15/2024 118/66 07/08/2024 128/82 04/11/2024 122/70 03/31/2024 128/70 12/24/2023 126/82 11/18/2023 124/72 Mixed hyperlipidemia Assessment: c/w statin PAD (peripheral artery disease) ([facility]) Assessment: 20-39% bilateral carotid artery stenosis per last 06/2024 BPPV (benign paroxysmal positional vertigo) Assessment: rx as needed VHD (valvular heart disease) Assessment: Echo 2021 with no notation of aortic sclerosis as noted in her chart, also only other VHD is trace PVR and TVR on last echo AORTIC VALVE The aortic valve cusps are structurally normal. There is no aortic valve regurgitation. Tricuspid aortic valve. The peak gradient is 10 mmHg (peak velocity = 154.4 cm/s). 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 Clinical Frailty Scale: 4. Apparently vulnerable STOP-Bang Score: Snores loudly Has or is being treated for high blood pressure Patient over 50 years old Denies feeling tired, fatigued, or sleepy during the daytime Has not been observed to stop breathing or choking/gasping during sleep BMI less than or equal to 35 kg/m2 Does not have a large neck Non-male patient STOP-Bang Score: 3 [id number] Score: Age: <65 Sex: female CHF history: No Hypertension history: Yes Stroke/TIA/thromboembol ism history: No Vascular disease history: Yes Diabetes history: No [id number]-DNKy Score: 3 ARISCAT Score: Age: 51-80 Preoperative SpO2: >=96% Respiratory infection in the last month: No Preoperative anemia: No Surgical incision: peripheral Duration of surgery: <2 hrs Emergency procedure: No ARISCAT Score: 3 I - PHYSICAL EVALUATION AIRWAY Patient intubated: No. Tracheostomy tube not present Mallampati: III. TM distance: >3 FB. Neck ROM: full ROM without neurological symptoms. Mouth opening: adequate. Short neck: no. Thick neck: no Vicente present: no Lip Bite Test: I Microretrognathia/Micro nagthia/Recessed Chin: No DENTAL Dental findings: teeth intact. II - ANESTHESIA PLAN Anesthetic Plan: other Beta Agustin Monitoring Plan Post Procedure Analgesic Plan Prepared for Surgery: optimally prepared for surgery. 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 My final recommendation will be communicated back to the requesting physician by way of shared medical record or letter. Subjective The patient has the following: COVID-19 Immunization Status This patient has no relevant Health Maintenance data. CHIEF COMPLAINT: Pre-op exam HPI: Allie Lynn is a 54 year old seen for PAC due to scheduled above surgery because Leaking of conjunctival drainage bleb. 03/23/25, Dr. Figueroa Urgent visit for bleb leak OS Sent by [facility] doctor for bleb leak OS X 4 days IOP was 0 yesterday Today 03/23/2025 Brisk leak OS - IOP 7.8 - AC deep - no choroidals - Discussed conservative management vs (more content not included)... Normal [facility] ALLIE [facility]YNN ([id number]) 1970 F Date Time Provider Department 03/23/25 CYNTHIA RAMOS OPHSONALIK During your visit today, we recorded the following information about you: Janet Rivero, BRITTANY 03/23/2025 9:54 AM Signed Spoke with patient. Sent the following message to Dr. Ramos in a Urgent Secure Chat regarding conversation: Received chart notes from [facility] Ankur Curtis MD. Patient has loose Exposed suture with a briskly leaking bleb, carmen positive, intraocular pressure 0 left eye . Patient started on Moxifloxacin four times a day . Advised to see you today for possible treatment. Patient was added to your schedule in the Urgent 4:00 slot. Do you feel this patient should come in sooner. Patient states Dr. Curtis advised she have surgery today? This is not noted in documentation. Please advise Patient is very concerned and upset. States she feels she should be seen earlier than the 4:00 appointment. Janet Rivero RN March 23, 2025 9:54 AM Janet Rivero RN 03/23/2025 10:00 AM Signed Response from Dr. Ramos: yes I can see her sooner but this needs urgent revision and I'm leaving for [place] tomorrow morning until April 07. Maybe its better to go to [facility] to be cared for Left message for patient to call the office to obtain the above information. Barbie Alicea reaching out to [facility] scheduling to find the availability of a engineering technical specialist to take over patient care with Dr. Ramos going out of the country. Janet Rivero RN March 23, 2025 10:00 AM Barbie Alicea 03/23/2025 11:01 AM Signed Appointment scheduled with at 12:30. Patient advised to arrive on empty stomach. States she did have a granola bar and took medications around 9 am. *documentation is in secure chat* Barbie Alicea March 23, 2025 10:48 AM Allergies As of Date: 03/23/2025 Noted Allergy Reaction ULTRAM (TRAMADOL HCL) 03/12/2006 11 - Vomiting DARVOCET A500 (PROPOXYPHENE N-GABRIEL*04/28/2012 1 - Mental Status Change HYDROCODONE BITARTRATE 10/19/2017 9 - Itching NITROFURANTOIN 03/05/2020 14 - Other: See Comments Comments: Loss of conciousness OPIOIDS - MORPHINE ANALOGUES 03/05/2020 9 - Itching PROPOXYPHENE 03/05/2020 14 - Other: See Comments Comments: Hallucinations TRAMADOL 03/05/2020 14 - Other: See Comments Comments: Loss of conciousness VICODIN (HYDROCODONE-ACETAMINOP HE*04/28/2012 9 - Itching Date Reviewed: 12/29/2024 Reviewed by: Janet Meza LPN - Fully Assessed Reason for Visit: Appointment [186] Cmt: Urgent issue. Prescriptions as of 03/23/2025 - meloxicam (MOBIC) 15 mg tablet Take 1 tablet by mouth once daily. - potassium chloride (K-TAB) 10 mEq tablet Take 1 tablet by mouth once daily. - escitalopram oxalate (LEXAPRO) 10 mg tablet Take 1 tablet by mouth once daily. - gabapentin (NEURONTIN) 100 mg capsule Take 1 capsule by mouth daily at bedtime for 181 days. - atorvastatin (LIPITOR) 40 mg tablet Take 1 tablet by mouth once daily. - CPAP/BIPAP/OTHER APAP 5-18 cmH2O [facility] - zolpidem (AMBIEN) 5 mg tablet Take 1 tablet by mouth at bedtime as needed (for insomnia.) for up to 90 days. - SAW PALMETTO ORAL Take by mouth once daily. - MAGNESIUM ORAL Take by mouth once daily. - COLLAGEN MISC - docosahexaenoic acid/epa (FISH OIL ORAL) Take by mouth once daily. - amLODIPine (NORVASC) 2.5 mg tablet Take 1 tablet by mouth once daily. - cevimeline (EVOXAC) 30 mg capsule Take 1 capsule by mouth three times a day. - traZODone (DESYREL) 50 mg tablet Take 1 tablet by mouth daily at bedtime. - buPROPion SR (WELLBUTRIN SR) 100 mg 12 hr tablet Take 1 tablet by mouth once daily. - estradiol (VIVELLE-DOT) 0.1 mg/24 hr patch Apply 1 Patch as directed two times a week. TWICE WEEKLY - progesterone micronized (PROMETRIUM) 100 mg capsule Take 1 capsule by mouth daily at bedtime. - fluticasone (FLONASE) 50 mcg/actuation nasal spray Use 2 Sprays in each nostril once daily. Rinse mouth after use. - omeprazole (PRILOSEC) 20 mg capsule Take 1 capsule by mouth once daily. - lisinopril-hydroCHLOROt hiazide (ZESTORETIC) 10-12.5 mg per tablet Take 1 tablet by mouth once daily. - cyclobenzaprine (FLEXERIL) 10 mg tablet Take 1 tablet by mouth two times a day as needed. - cyanocobalamin, vitamin B-12, (VITAMIN B-12 ORAL) Take by mouth once daily. - ibuprofen (MOTRIN) 800 mg tablet Take 1 tablet by mouth every 8 hours as needed for pain. Take with food. - mometasone (NASONEX) 50 mcg/actuation nasal spray USE 2 SPRAYS NASALLY ONCE DAILY. RINSE MOUTH AFTER USE. - L.acid/B.animalis,bifid um/FOS (PROBIOTIC COMPLEX ORAL) Take by mouth once daily. - biotin/calcium carbonate (BIOTIN-CALCIUM ORAL) Take by mouth. - vitamin B complex (B COMPLEX-VITAMIN B12 ORAL) Take by mouth once daily. - aspirin, (more content not included)... Normal [facility] FUNDUS PHOTOS OU (BOTH EYES) on 03-23-2025 [facility] No Panel Informationon 03-23 Radiology Study observation (narrative) [facility] OCT OPTIC NERVE CIRRUS OU (B OTH EYES)on 03-23-2025 [facility] PACHYMETRY OU (BOTH EYES)on 03-23-2025 [facility] Radiology Study observation (narrative) [facility] SLIT LAMP PHOTOS OU (BOTH EY ES)on 03-23-2025 [facility] Lumbar Spine 2 or 3 Viewson 03-10-2025 Lumbar Spine 2 or 3 Views [facility] Services [address] [place] [address] [id number] Lumbar Spine 2 or 3 Views MR#: [id number] Acct: [id number] Name: ALLIE LYNN Rep #: [id number] : 1970 F 54 From: Alan Perales MD PCP: Dr. Ifeoma Davis MD Status: DEP AMB Study: Lumbar Spine 2 or 3 Views Date of Exam: Exam# [id number] Ordering Dr: Phillip Pozo DO PROCEDURE: LUMBAR SPINE 2 OR 3 VIEWS 03/10/2025 REASON FOR EXAM: CHRONIC BACK PAIN TECHNIQUE: LUMBAR SPINE 2 OR 3 VIEWS COMPARISON: None. FINDINGS: No evidence of acute fracture or dislocation. Levoscoliosis. [id number] discogenic degenerative changes of the visualized spine. RAD/Lumbar Spine 2 or 3 Views IMPRESSION: Spondylosis. Levoscoliosis. Reading Location: [id number] CC: Dr. Ifeoma Davis MD; Dr. Phillip Pozo DO Trade Marker: Signed Normal [facility] Orthopedic Visit Reporton Orthopedic Visit Report [facility] [address] [place] [address] OFFICE VISIT Date of Service: 03/10/25 MR#: [id number] Acct: [id number] Name: ALLIE LYNN Rep #: [id number] : 1970 Provider: Dr. Phillip goldman, DO Age/Sex: 54/F [place] [facility] [place]: Signed Intake Vital Signs 12/09/24 13:28 Height 5 ft Weight: 151 lb 2 oz BMI 29.5 Intake Visit Reasons: LEFT HIP Chief Complaint: Left Hip Pain Accompanied by: Self Is patient in pain?: Yes Pain scale (1-10): 7 Allergies hydrocodone bitartrate (From Vicodin) Adverse Reaction (Verified 03/10/25 14:37) Itching nitrofurantoin (From Macrobid) Adverse Reaction (Verified 03/10/25 14:37) Other nitrofurantoin macrocrystalline (From Macrobid) Adverse Reaction (Verified 03/10/25 14:37) Other propoxyphene (From Darvocet-N) Adverse Reaction (Verified 03/10/25 14:37) Other tramadol HCl (From Ultram) Adverse Reaction (Verified 03/10/25 14:37) Other Medications ???Medication ???Instructions ???Recorded ???Confirmed ???Type atorvastatin 40 mg tablet 40 mg PO QHS 01/17/17 03/10/25 His tory cyclobenzaprine 10 mg tablet 10 mg PO Q8H 10/29/17 03/10/25 His tory trazodone 50 mg tablet 50 mg PO QHS PRN insomnia 10/20/18 03/10/25 History meloxicam 15 mg tablet 11/20/21 03/10/25 History omeprazole 20 mg capsule,delayed 11/20/21 03/10/25 History release amlodipine 2.5 mg tablet 2.5 mg PO QDAY 12/09/24 03/10/25 H istory aspirin 81 mg tablet,delayed 81 mg PO QDAY 12/09/24 03/10/25 Hi story release (Adult Low Dose Aspirin) bupropion HCl 100 mg tablet,12 hr 100 mg PO QAM 12/09/24 03/10/25 H istory sustained-release escitalopram oxalate 10 mg tablet 10 mg PO QDAY 12/09/24 03/10/25 H istory estradiol 0.1 mg/24 hr semiweekly transdermal 12/09/24 03/10/25 His tory transdermal patch (Darling) lisinopril 10 1 tab PO QDAY 12/09/24 03/10/25 Hi story mg-hydrochlorothiazide 12.5 mg tablet magnesium 200 mg tablet 200 mg PO QDAY 12/09/24 03/10/25 H istory omega-3 720 zl-cly-ick-fish cap PO 12/09/24 03/10/25 History oil-vit D3 25 mcg capsule vitamin B12 500 mcg-folic acid 400 1 tab PO QDAY 12/09/24 03/10/25 History mcg tablet zolpidem 5 mg tablet 5 mg PO QHS PRN 12/09/24 03/10/25 History fluticasone propionate 50 2 spray intranasal QDAY 03/10/25 0 03/10/25 History mcg/actuation nasal spray,suspension gabapentin 100 mg capsule 100 mg PO QHS 03/10/25 03/10/25 Hi story oxycodone-acetaminophen 5 mg-325 0.5 - 1 tab PO TID PRN pain 03/10/25 History mg tablet PFSH Medical History (Updated 03/10/25 @ 15:[address] Phillip Pozo DO) History of trigger finger Fibromyalgia Restless legs Hot flashes Legal blindness of both eyes as defined in [place] PXE (pseudoxanthoma elasticum) Hypertension Surgical History Status post glaucoma surgery S/P right knee arthroscopy S/P Family History Father Lung cancer Mother COPD (chronic obstructive pulmonary disease) CVA (cerebral vascular accident) Son Myocardial infarction Other Breast cancer Ovarian cancer Social History household members: none housing: house Smoking Status: Never smoker alcohol intake: current alcohol intake frequency: holidays/special occasions only substance use type: does not use HPI LEFT HIP Details: This documentation accurately reflects the service provided and the decisions made by me, Dr. Phillip Pozo DO 03/10/25 0800. Part of today???s visit was documented by Bianka Cardoza ATC, acting as scribe. ALLIE LYNN is a 54 year old F chronic pain patient's comanagement with Dr. Brush she is on baclofen, cyclobenzaprine, gabapentin, Mobic, Percocet, trazodone here today for left hip pain. Patient states the sciatic pain is not too bad today but when she is up on her feet a lot it seems to be worse. She states when she is up and on her feet a lot she feels like she needs to sit down. She states she talked to Dr. Betancourt about a possible hip replacement. She had a hip injection right into the joint about [address] Betancourt in the hip socket and there was no benefit. She does not recall whether the trochanteric bursal injection I gave her back in December was helpful at all she cannot remember. She denies any groin pain there is no reproduced pain with hip range of motion her pain is most significant lateral and posteriorly with a burning pain in her glute 12/09/2024 visit:54 year old F here today for left hip pain. Patient states the hip has been bothering her for several years. She has had many injections with Dr. Betancourt. (more content not included)... Normal [facility] CNNURSEon 03-02-2025 [facility] Nurse Visit (FAMPWS) ALLIE LYNN ([id number]) 1970 F Date Time Provider Department 03/02/25 12:45 PM [facility] NURSE FAMPWS During your visit today, we recorded the following information about you: Allergies As of Date: 03/02/2025 Noted Allergy Reaction ULTRAM (TRAMADOL HCL) 03/12/2006 11 - Vomiting DARVOCET A500 (PROPOXYPHENE N-GABRIEL*04/28/2012 1 - Mental Status Change HYDROCODONE BITARTRATE 10/19/2017 9 - Itching NITROFURANTOIN 03/05/2020 14 - Other: See Comments Comments: Loss of conciousness OPIOIDS - MORPHINE ANALOGUES 03/05/2020 9 - Itching PROPOXYPHENE 03/05/2020 14 - Other: See Comments Comments: Hallucinations TRAMADOL 03/05/2020 14 - Other: See Comments Comments: Loss of conciousness VICODIN (HYDROCODONE-ACETAMINOP HE*04/28/2012 9 - Itching Date Reviewed: 12/29/2024 Reviewed by: Janet Meza LPN - Fully Assessed Reason for Visit: Imm/Inj [58] Primary Visit Diagnosis:Immunization due [Z23] Prescriptions as of 03/02/2025 - meloxicam (MOBIC) 15 mg tablet Take 1 tablet by mouth once daily. - potassium chloride (K-TAB) 10 mEq tablet Take 1 tablet by mouth once daily. - escitalopram oxalate (LEXAPRO) 10 mg tablet Take 1 tablet by mouth once daily. - gabapentin (NEURONTIN) 100 mg capsule Take 1 capsule by mouth daily at bedtime for 181 days. - atorvastatin (LIPITOR) 40 mg tablet Take 1 tablet by mouth once daily. - CPAP/BIPAP/OTHER APAP 5-18 cmH2O [facility] - zolpidem (AMBIEN) 5 mg tablet Take 1 tablet by mouth at bedtime as needed (for insomnia.) for up to 90 days. - SAW PALMETTO ORAL Take by mouth once daily. - MAGNESIUM ORAL Take by mouth once daily. - COLLAGEN MISC - docosahexaenoic acid/epa (FISH OIL ORAL) Take by mouth once daily. - amLODIPine (NORVASC) 2.5 mg tablet Take 1 tablet by mouth once daily. - cevimeline (EVOXAC) 30 mg capsule Take 1 capsule by mouth three times a day. - traZODone (DESYREL) 50 mg tablet Take 1 tablet by mouth daily at bedtime. - buPROPion SR (WELLBUTRIN SR) 100 mg 12 hr tablet Take 1 tablet by mouth once daily. - estradiol (VIVELLE-DOT) 0.1 mg/24 hr patch Apply 1 Patch as directed two times a week. TWICE WEEKLY - progesterone micronized (PROMETRIUM) 100 mg capsule Take 1 capsule by mouth daily at bedtime. - fluticasone (FLONASE) 50 mcg/actuation nasal spray Use 2 Sprays in each nostril once daily. Rinse mouth after use. - omeprazole (PRILOSEC) 20 mg capsule Take 1 capsule by mouth once daily. - lisinopril-hydroCHLOROt hiazide (ZESTORETIC) 10-12.5 mg per tablet Take 1 tablet by mouth once daily. - cyclobenzaprine (FLEXERIL) 10 mg tablet Take 1 tablet by mouth two times a day as needed. - cyanocobalamin, vitamin B-12, (VITAMIN B-12 ORAL) Take by mouth once daily. - ibuprofen (MOTRIN) 800 mg tablet Take 1 tablet by mouth every 8 hours as needed for pain. Take with food. - mometasone (NASONEX) 50 mcg/actuation nasal spray USE 2 SPRAYS NASALLY ONCE DAILY. RINSE MOUTH AFTER USE. - L.acid/B.animalis,bifid um/FOS (PROBIOTIC COMPLEX ORAL) Take by mouth once daily. - biotin/calcium carbonate (BIOTIN-CALCIUM ORAL) Take by mouth. - vitamin B complex (B COMPLEX-VITAMIN B12 ORAL) Take by mouth once daily. - aspirin, enteric coated (ASPIR-LOW) 81 mg EC tablet Take 1 tablet by mouth once daily. 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] 04/15/2017 Mixed hyperlipidemia [E78.2] 04/15/2017 BPPV (benign paroxysmal positional vertigo) [H8*04/15/2017 Nausea [R11.0] 01/29/2018 Bilateral upper abdominal pain [R10.11, R10.12] 01/29/2018 Secondary glaucoma, indeterminate stage, 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01] 08/16/2022 Nuclear senile cataract of left eye [H25.12] 11/15/2022 11/15/2022 Primary open angle glaucoma (POAG) of left eye,*11/15/2022 12/29/2022 Encounter Status:Closed by NORI SAL on 03/02/25 [facility] ALLIE [facility] ([id number]) 1970 F LV Date Time Provider Department 03/01/25 IFEOMA DAVIS INTClintWS During your visit today, we recorded the following information about you: YESI VARGHESE 03/01/2025 7:56 AM Signed Patient scheduled for nurse visit 03/02/25 to receive TDAP vaccine. Please place order at this time. Yesi Varghese LPN Allergies As of Date: 03/01/2025 Noted Allergy Reaction ULTRAM (TRAMADOL HCL) 03/12/2006 11 - Vomiting DARVOCET A500 (PROPOXYPHENE N-GABRIEL*04/28/2012 1 - Mental Status Change HYDROCODONE BITARTRATE 10/19/2017 9 - Itching NITROFURANTOIN 03/05/2020 14 - Other: See Comments Comments: Loss of conciousness OPIOIDS - MORPHINE ANALOGUES 03/05/2020 9 - Itching PROPOXYPHENE 03/05/2020 14 - Other: See Comments Comments: Hallucinations TRAMADOL 03/05/2020 14 - Other: See Comments Comments: Loss of conciousness VICODIN (HYDROCODONE-ACETAMINOP HE*04/28/2012 9 - Itching Date Reviewed: 12/29/2024 Reviewed by: Janet Meza LPN - Fully Assessed Reason for Visit: Orders [681] Primary Visit Diagnosis:Need for vaccination [Z23] Order(s):TDAP VACCINE, AGE 7+ YR (ADACEL, BOOSTRIX) [[id number]] Order #: [id number] Prescriptions as of 03/02/2025 - meloxicam (MOBIC) 15 mg tablet Take 1 tablet by mouth once daily. - potassium chloride (K-TAB) 10 mEq tablet Take 1 tablet by mouth once daily. - escitalopram oxalate (LEXAPRO) 10 mg tablet Take 1 tablet by mouth once daily. - gabapentin (NEURONTIN) 100 mg capsule Take 1 capsule by mouth daily at bedtime for 181 days. - atorvastatin (LIPITOR) 40 mg tablet Take 1 tablet by mouth once daily. - CPAP/BIPAP/OTHER APAP 5-18 cmH2O [facility] - zolpidem (AMBIEN) 5 mg tablet Take 1 tablet by mouth at bedtime as needed (for insomnia.) for up to 90 days. - SAW PALMETTO ORAL Take by mouth once daily. - MAGNESIUM ORAL Take by mouth once daily. - COLLAGEN MISC - docosahexaenoic acid/epa (FISH OIL ORAL) Take by mouth once daily. - amLODIPine (NORVASC) 2.5 mg tablet Take 1 tablet by mouth once daily. - cevimeline (EVOXAC) 30 mg capsule Take 1 capsule by mouth three times a day. - traZODone (DESYREL) 50 mg tablet Take 1 tablet by mouth daily at bedtime. - buPROPion SR (WELLBUTRIN SR) 100 mg 12 hr tablet Take 1 tablet by mouth once daily. - estradiol (VIVELLE-DOT) 0.1 mg/24 hr patch Apply 1 Patch as directed two times a week. TWICE WEEKLY - progesterone micronized (PROMETRIUM) 100 mg capsule Take 1 capsule by mouth daily at bedtime. - fluticasone (FLONASE) 50 mcg/actuation nasal spray Use 2 Sprays in each nostril once daily. Rinse mouth after use. - omeprazole (PRILOSEC) 20 mg capsule Take 1 capsule by mouth once daily. - lisinopril-hydroCHLOROt hiazide (ZESTORETIC) 10-12.5 mg per tablet Take 1 tablet by mouth once daily. - cyclobenzaprine (FLEXERIL) 10 mg tablet Take 1 tablet by mouth two times a day as needed. - cyanocobalamin, vitamin B-12, (VITAMIN B-12 ORAL) Take by mouth once daily. - ibuprofen (MOTRIN) 800 mg tablet Take 1 tablet by mouth every 8 hours as needed for pain. Take with food. - mometasone (NASONEX) 50 mcg/actuation nasal spray USE 2 SPRAYS NASALLY ONCE DAILY. RINSE MOUTH AFTER USE. - L.acid/B.animalis,bifid um/FOS (PROBIOTIC COMPLEX ORAL) Take by mouth once daily. - biotin/calcium carbonate (BIOTIN-CALCIUM ORAL) Take by mouth. - vitamin B complex (B COMPLEX-VITAMIN B12 ORAL) Take by mouth once daily. - aspirin, enteric coated (ASPIR-LOW) 81 mg EC tablet Take 1 tablet by mouth once daily. 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] 04/15/2017 Mixed hyperlipidemia [E78.2] 04/15/2017 BPPV (benign paroxysmal positional vertigo) [H8*04/15/2017 Nausea [R11.0] 01/29/2018 Bilateral upper abdominal pain [R10.11, R10.12] 01/29/2018 Secondary glaucoma, indeterminate stage, 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 (more content not included)... Normal [facility] 02-25-2025 [facility] Telephone (INTMWS) ALLIE LYNN ([id number]) 1970 F Date Time Provider Department 02/25/25 IFEOMA DAVIS INTWS During your visit today, we recorded the following information about you: Spring Peñaloza RN 02/25/2025 1:29 PM Signed Pt called in and was asking if she was up to date on her TDAP vaccine, because she is going to visit her new grand baby. Please place the order for the vaccine as she will be coming in to get this with [facility] nurse on 03/03/25. Spring Peñaloza RN Allergies As of Date: 02/25/2025 Noted Allergy Reaction ULTRAM (TRAMADOL HCL) 03/12/2006 11 - Vomiting DARVOCET A500 (PROPOXYPHENE N-GABRIEL*04/28/2012 1 - Mental Status Change HYDROCODONE BITARTRATE 10/19/2017 9 - Itching NITROFURANTOIN 03/05/2020 14 - Other: See Comments Comments: Loss of conciousness OPIOIDS - MORPHINE ANALOGUES 03/05/2020 9 - Itching PROPOXYPHENE 03/05/2020 14 - Other: See Comments Comments: Hallucinations TRAMADOL 03/05/2020 14 - Other: See Comments Comments: Loss of conciousness VICODIN (HYDROCODONE-ACETAMINOP HE*04/28/2012 9 - Itching Date Reviewed: 12/29/2024 Reviewed by: Janet Meza LPN - Fully Assessed Reason for Visit: TDAP order [Other] Order(s):tetanus diphtheria pertussis Tdap vaccine, PF (ADACEL) injectionInject 0.5 mL intramuscularly one time only for 1 dose.Disp: 0.5 mLRfl: 0 Prescriptions as of 02/25/2025 - tetanus diphtheria pertussis Tdap vaccine, PF (ADACEL) injection Inject 0.5 mL intramuscularly one time only for 1 dose. - meloxicam (MOBIC) 15 mg tablet Take 1 tablet by mouth once daily. - potassium chloride (K-TAB) 10 mEq tablet Take 1 tablet by mouth once daily. - escitalopram oxalate (LEXAPRO) 10 mg tablet Take 1 tablet by mouth once daily. - gabapentin (NEURONTIN) 100 mg capsule Take 1 capsule by mouth daily at bedtime for 181 days. - atorvastatin (LIPITOR) 40 mg tablet Take 1 tablet by mouth once daily. - CPAP/BIPAP/OTHER APAP 5-18 cmH2O [facility] - zolpidem (AMBIEN) 5 mg tablet Take 1 tablet by mouth at bedtime as needed (for insomnia.) for up to 90 days. - SAW PALMETTO ORAL Take by mouth once daily. - MAGNESIUM ORAL Take by mouth once daily. - COLLAGEN MISC - docosahexaenoic acid/epa (FISH OIL ORAL) Take by mouth once daily. - amLODIPine (NORVASC) 2.5 mg tablet Take 1 tablet by mouth once daily. - cevimeline (EVOXAC) 30 mg capsule Take 1 capsule by mouth three times a day. - traZODone (DESYREL) 50 mg tablet Take 1 tablet by mouth daily at bedtime. - buPROPion SR (WELLBUTRIN SR) 100 mg 12 hr tablet Take 1 tablet by mouth once daily. - estradiol (VIVELLE-DOT) 0.1 mg/24 hr patch Apply 1 Patch as directed two times a week. TWICE WEEKLY - progesterone micronized (PROMETRIUM) 100 mg capsule Take 1 capsule by mouth daily at bedtime. - fluticasone (FLONASE) 50 mcg/actuation nasal spray Use 2 Sprays in each nostril once daily. Rinse mouth after use. - omeprazole (PRILOSEC) 20 mg capsule Take 1 capsule by mouth once daily. - lisinopril-hydroCHLOROt hiazide (ZESTORETIC) 10-12.5 mg per tablet Take 1 tablet by mouth once daily. - cyclobenzaprine (FLEXERIL) 10 mg tablet Take 1 tablet by mouth two times a day as needed. - cyanocobalamin, vitamin B-12, (VITAMIN B-12 ORAL) Take by mouth once daily. - ibuprofen (MOTRIN) 800 mg tablet Take 1 tablet by mouth every 8 hours as needed for pain. Take with food. - mometasone (NASONEX) 50 mcg/actuation nasal spray USE 2 SPRAYS NASALLY ONCE DAILY. RINSE MOUTH AFTER USE. - L.acid/B.animalis,bifid um/FOS (PROBIOTIC COMPLEX ORAL) Take by mouth once daily. - biotin/calcium carbonate (BIOTIN-CALCIUM ORAL) Take by mouth. - vitamin B complex (B COMPLEX-VITAMIN B12 ORAL) Take by mouth once daily. - aspirin, enteric coated (ASPIR-LOW) 81 mg EC tablet Take 1 tablet by mouth once daily. 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 Normal [facility] 01-12-2025 [facility] Telephone (INTMWS) ALLIE LYNN ([id number]) 1970 F Date Time Provider Department 01/12/25 IFEOMA DAVIS INTWS During your visit today, we recorded the following information about you: Angelica Arreola RN 01/12/2025 12:21 PM Addendum Patient reports she has lost her blindness cane. States she spoke with her insurance company [employer] and they state for PCP to write a new order and send to DME company. Order pended for provider review. Please fax order to [facility]. Please call patient with an update. BRITTANY De La Fuente Mary, LPN 01/13/2025 8:10 AM Signed Faxed order to [facility] per patient request Janet Meza LPN January 13, 2025 8:10 AM Roxanna JOLIE Magallanes 01/13/2025 9:13 AM Signed Roman from [facility] calling said they do not carry that item requested. Janet Meza LPN 01/13/2025 10:28 AM Signed Called and updated patient, patient will call back with alternate supplier Janet Meza LPN January 13, 2025 10:28 AM Allergies As of Date: 01/12/2025 Noted Allergy Reaction ULTRAM (TRAMADOL HCL) 03/12/2006 11 - Vomiting DARVOCET A500 (PROPOXYPHENE N-GABRIEL*04/28/2012 1 - Mental Status Change HYDROCODONE BITARTRATE 10/19/2017 9 - Itching NITROFURANTOIN 03/05/2020 14 - Other: See Comments Comments: Loss of conciousness OPIOIDS - MORPHINE ANALOGUES 03/05/2020 9 - Itching PROPOXYPHENE 03/05/2020 14 - Other: See Comments Comments: Hallucinations TRAMADOL 03/05/2020 14 - Other: See Comments Comments: Loss of conciousness VICODIN (HYDROCODONE-ACETAMINOP HE*04/28/2012 9 - Itching Date Reviewed: 12/29/2024 Reviewed by: Janet Meza LPN - Fully Assessed Reason for Visit: DME Order Request [Other] Primary Visit Diagnosis:Legally blind [H54.8] Other Visit Diagnosis: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 [H54.0X34] Order(s):DME SUPPLY OR ACCESSORY, NOS [[id number]] Order #: [id number] Prescriptions as of 01/13/2025 - meloxicam (MOBIC) 15 mg tablet Take 1 tablet by mouth once daily. - potassium chloride (K-TAB) 10 mEq tablet Take 1 tablet by mouth once daily. - escitalopram oxalate (LEXAPRO) 10 mg tablet Take 1 tablet by mouth once daily. - gabapentin (NEURONTIN) 100 mg capsule Take 1 capsule by mouth daily at bedtime for 181 days. - atorvastatin (LIPITOR) 40 mg tablet Take 1 tablet by mouth once daily. - CPAP/BIPAP/OTHER APAP 5-18 cmH2O [facility] - zolpidem (AMBIEN) 5 mg tablet Take 1 tablet by mouth at bedtime as needed (for insomnia.) for up to 90 days. - SAW PALMETTO ORAL Take by mouth once daily. - MAGNESIUM ORAL Take by mouth once daily. - COLLAGEN MISC - docosahexaenoic acid/epa (FISH OIL ORAL) Take by mouth once daily. - amLODIPine (NORVASC) 2.5 mg tablet Take 1 tablet by mouth once daily. - cevimeline (EVOXAC) 30 mg capsule Take 1 capsule by mouth three times a day. - traZODone (DESYREL) 50 mg tablet Take 1 tablet by mouth daily at bedtime. - buPROPion SR (WELLBUTRIN SR) 100 mg 12 hr tablet Take 1 tablet by mouth once daily. - estradiol (VIVELLE-DOT) 0.1 mg/24 hr patch Apply 1 Patch as directed two times a week. TWICE WEEKLY - progesterone micronized (PROMETRIUM) 100 mg capsule Take 1 capsule by mouth daily at bedtime. - fluticasone (FLONASE) 50 mcg/actuation nasal spray Use 2 Sprays in each nostril once daily. Rinse mouth after use. - omeprazole (PRILOSEC) 20 mg capsule Take 1 capsule by mouth once daily. - lisinopril-hydroCHLOROt hiazide (ZESTORETIC) 10-12.5 mg per tablet Take 1 tablet by mouth once daily. - cyclobenzaprine (FLEXERIL) 10 mg tablet Take 1 tablet by mouth two times a day as needed. - cyanocobalamin, vitamin B-12, (VITAMIN B-12 ORAL) Take by mouth once daily. - ibuprofen (MOTRIN) 800 mg tablet Take 1 tablet by mouth every 8 hours as needed for pain. Take with food. - mometasone (NASONEX) 50 mcg/actuation nasal spray USE 2 SPRAYS NASALLY ONCE DAILY. RINSE MOUTH AFTER USE. - L.acid/B.animalis,bifid um/FOS (PROBIOTIC COMPLEX ORAL) Take by mouth once daily. - biotin/calcium carbonate (BIOTIN-CALCIUM ORAL) Take by mouth. - vitamin B complex (B COMPLEX-VITAMIN B12 ORAL) Take by mouth once daily. - aspirin, enteric coated (ASPIR-LOW) 81 mg EC tablet Take 1 tablet by mouth once daily. 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 Normal [facility] Telephone (KAYLIE) ALLIE LYNN ([id number]) 1970 F LV Date Time Provider Department 01/12/25 MICHELLE CHIN During your visit today, we recorded the following information about you: Shabbir Berkowitz LPN 01/12/2025 8:32 AM Signed CPAP supply order faxed. Shabbir Berkowitz LPN Allergies As of Date: 01/12/2025 Noted Allergy Reaction ULTRAM (TRAMADOL HCL) 03/12/2006 11 - Vomiting DARVOCET A500 (PROPOXYPHENE N-GABRIEL*04/28/2012 1 - Mental Status Change HYDROCODONE BITARTRATE 10/19/2017 9 - Itching NITROFURANTOIN 03/05/2020 14 - Other: See Comments Comments: Loss of conciousness OPIOIDS - MORPHINE ANALOGUES 03/05/2020 9 - Itching PROPOXYPHENE 03/05/2020 14 - Other: See Comments Comments: Hallucinations TRAMADOL 03/05/2020 14 - Other: See Comments Comments: Loss of conciousness VICODIN (HYDROCODONE-ACETAMINOP HE*04/28/2012 9 - Itching Date Reviewed: 12/29/2024 Reviewed by: Janet Meza LPN - Fully Assessed Prescriptions as of 01/12/2025 - meloxicam (MOBIC) 15 mg tablet Take 1 tablet by mouth once daily. - potassium chloride (K-TAB) 10 mEq tablet Take 1 tablet by mouth once daily. - escitalopram oxalate (LEXAPRO) 10 mg tablet Take 1 tablet by mouth once daily. - gabapentin (NEURONTIN) 100 mg capsule Take 1 capsule by mouth daily at bedtime for 181 days. - atorvastatin (LIPITOR) 40 mg tablet Take 1 tablet by mouth once daily. - CPAP/BIPAP/OTHER APAP 5-18 cmH2O [facility] - zolpidem (AMBIEN) 5 mg tablet Take 1 tablet by mouth at bedtime as needed (for insomnia.) for up to 90 days. - SAW PALMETTO ORAL Take by mouth once daily. - MAGNESIUM ORAL Take by mouth once daily. - COLLAGEN MISC - docosahexaenoic acid/epa (FISH OIL ORAL) Take by mouth once daily. - amLODIPine (NORVASC) 2.5 mg tablet Take 1 tablet by mouth once daily. - cevimeline (EVOXAC) 30 mg capsule Take 1 capsule by mouth three times a day. - traZODone (DESYREL) 50 mg tablet Take 1 tablet by mouth daily at bedtime. - buPROPion SR (WELLBUTRIN SR) 100 mg 12 hr tablet Take 1 tablet by mouth once daily. - estradiol (VIVELLE-DOT) 0.1 mg/24 hr patch Apply 1 Patch as directed two times a week. TWICE WEEKLY - progesterone micronized (PROMETRIUM) 100 mg capsule Take 1 capsule by mouth daily at bedtime. - fluticasone (FLONASE) 50 mcg/actuation nasal spray Use 2 Sprays in each nostril once daily. Rinse mouth after use. - omeprazole (PRILOSEC) 20 mg capsule Take 1 capsule by mouth once daily. - lisinopril-hydroCHLOROt hiazide (ZESTORETIC) 10-12.5 mg per tablet Take 1 tablet by mouth once daily. - cyclobenzaprine (FLEXERIL) 10 mg tablet Take 1 tablet by mouth two times a day as needed. - cyanocobalamin, vitamin B-12, (VITAMIN B-12 ORAL) Take by mouth once daily. - ibuprofen (MOTRIN) 800 mg tablet Take 1 tablet by mouth every 8 hours as needed for pain. Take with food. - mometasone (NASONEX) 50 mcg/actuation nasal spray USE 2 SPRAYS NASALLY ONCE DAILY. RINSE MOUTH AFTER USE. - L.acid/B.animalis,bifid um/FOS (PROBIOTIC COMPLEX ORAL) Take by mouth once daily. - biotin/calcium carbonate (BIOTIN-CALCIUM ORAL) Take by mouth. - vitamin B complex (B COMPLEX-VITAMIN B12 ORAL) Take by mouth once daily. - aspirin, enteric coated (ASPIR-LOW) 81 mg EC tablet Take 1 tablet by mouth once daily. 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] 04/15/2017 Mixed hyperlipidemia [E78.2] 04/15/2017 BPPV (benign paroxysmal positional vertigo) [H8*04/15/2017 Nausea [R11.0] 01/29/2018 Bilateral upper abdominal pain [R10.11, R10.12] 01/29/2018 Secondary glaucoma, indeterminate stage, 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01] 08/16/2022 Nuclear senile cataract of left eye [H25.12] 11/15/2022 11/15/2022 Primary open angle glaucoma (POAG) of left eye,*11/15/2022 12/29/2022 Encounter Status:Closed by SHABBIR BERKOWITZ on 01/12 (more content not included)... Normal [facility] 12-30-2024 [facility] Telephone (MANJULAWST) ALLIE LYNN ([id number]) 1970 F Date Time Provider Department 12/30/24 MICHELLE CHIN During your visit today, we recorded the following information about you: Eve Tracey 12/30/2024 8:40 AM Signed Patient calling in to let Michelle Elsy know her results from her CPAP are now in her chart. She is asking if she had the chance to review them. Please review and advise patient. Eve Tracey December 30, 2024 8:39 AM Letty Morales LPN 12/30/2024 11:28 AM Signed TC to pt with no answer, left VM to return call. Please confirm if she is referring to her sleep study. I called patient on December 17 with the results and sent her CPAP orders to [facility] in [place]. They should be reaching out to her to set up machine. JOLIE Taylor M Robin, BRITTANY 12/30/2024 11:53 AM Signed Pt returned call and given message. Pt reports she does remember Letty calling her and giving her the results of sleep study. Reports [facility] is coming to her house on 01/07/25 between 10:30 AND 12:30 to set up her CPAP. Reports they are coming to her house because she is legally blind and doesn't drive. Allergies As of Date: 12/30/2024 Noted Allergy Reaction ULTRAM (TRAMADOL HCL) 03/12/2006 11 - Vomiting DARVOCET A500 (PROPOXYPHENE N-GABRIEL*04/28/2012 1 - Mental Status Change HYDROCODONE BITARTRATE 10/19/2017 9 - Itching NITROFURANTOIN 03/05/2020 14 - Other: See Comments Comments: Loss of conciousness OPIOIDS - MORPHINE ANALOGUES 03/05/2020 9 - Itching PROPOXYPHENE 03/05/2020 14 - Other: See Comments Comments: Hallucinations TRAMADOL 03/05/2020 14 - Other: See Comments Comments: Loss of conciousness VICODIN (HYDROCODONE-ACETAMINOP HE*04/28/2012 9 - Itching Date Reviewed: 12/29/2024 Reviewed by: Janet Meza LPN - Fully Assessed Reason for Visit: Results [95] Prescriptions as of 12/30/2024 - meloxicam (MOBIC) 15 mg tablet Take 1 tablet by mouth once daily. - potassium chloride (K-TAB) 10 mEq tablet Take 1 tablet by mouth once daily. - escitalopram oxalate (LEXAPRO) 10 mg tablet Take 1 tablet by mouth once daily. - gabapentin (NEURONTIN) 100 mg capsule Take 1 capsule by mouth daily at bedtime for 181 days. - atorvastatin (LIPITOR) 40 mg tablet Take 1 tablet by mouth once daily. - CPAP/BIPAP/OTHER APAP 5-18 cmH2O DME [facility] [place] - zolpidem (AMBIEN) 5 mg tablet Take 1 tablet by mouth at bedtime as needed (for insomnia.) for up to 90 days. - SAW PALMETTO ORAL Take by mouth once daily. - MAGNESIUM ORAL Take by mouth once daily. - COLLAGEN MISC - docosahexaenoic acid/epa (FISH OIL ORAL) Take by mouth once daily. - amLODIPine (NORVASC) 2.5 mg tablet Take 1 tablet by mouth once daily. - cevimeline (EVOXAC) 30 mg capsule Take 1 capsule by mouth three times a day. - traZODone (DESYREL) 50 mg tablet Take 1 tablet by mouth daily at bedtime. - buPROPion SR (WELLBUTRIN SR) 100 mg 12 hr tablet Take 1 tablet by mouth once daily. - estradiol (VIVELLE-DOT) 0.1 mg/24 hr patch Apply 1 Patch as directed two times a week. TWICE WEEKLY - progesterone micronized (PROMETRIUM) 100 mg capsule Take 1 capsule by mouth daily at bedtime. - fluticasone (FLONASE) 50 mcg/actuation nasal spray Use 2 Sprays in each nostril once daily. Rinse mouth after use. - omeprazole (PRILOSEC) 20 mg capsule Take 1 capsule by mouth once daily. - lisinopril-hydroCHLOROt hiazide (ZESTORETIC) 10-12.5 mg per tablet Take 1 tablet by mouth once daily. - cyclobenzaprine (FLEXERIL) 10 mg tablet Take 1 tablet by mouth two times a day as needed. - cyanocobalamin, vitamin B-12, (VITAMIN B-12 ORAL) Take by mouth once daily. - ibuprofen (MOTRIN) 800 mg tablet Take 1 tablet by mouth every 8 hours as needed for pain. Take with food. - mometasone (NASONEX) 50 mcg/actuation nasal spray USE 2 SPRAYS NASALLY ONCE DAILY. RINSE MOUTH AFTER USE. - L.acid/B.animalis,bifid um/FOS (PROBIOTIC COMPLEX ORAL) Take by mouth once daily. - biotin/calcium carbonate (BIOTIN-CALCIUM ORAL) Take by mouth. - vitamin B complex (B COMPLEX-VITAMIN B12 ORAL) Take by mouth once daily. - aspirin, enteric coated (ASPIR-LOW) 81 mg EC tablet Take 1 tablet by mouth once daily. 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 Normal [facility] CNOVon 12-29-2024 CNOV Office Visit (INTMWS ) ALLIE LYNN ([id number]) 1970 F [place] Date Time Provider Department 12/29/24 3:00 PM IFEOMA DAVIS INTMWS During your visit today, we recorded the following information about you: Pulse Blood pressure Weight Height 86/minute 112/66 66.4 kg 1.549 m Ifeoma Davis MD 12/29/2024 5:06 PM Signed Reason for Visit Follow up depression and sleep apnea HPI Allie is a 54-year-old female with a history of moderate obstructive sleep apnea, presenting for medication refills and management of sleep apnea. Allie reports feeling a lot better but still experiences persistent fatigue and a heavy fog over her mental clarity, attributing these symptoms to her sleep apnea. She recently underwent a sleep study, which revealed 39 apneas and 63 hypopneas over 324 minutes, with an AHI of 18. She is awaiting the delivery and setup of a CPAP machine on January 07, which she hopes will improve her symptoms. She is currently taking multiple medications, including Norvasc, lisinopril, a cholesterol-lowering medication, Wellbutrin, Ambien, trazodone, potassium, progesterone, and meloxicam. She expresses concern that Wellbutrin is no longer effective in managing her anxiety and depression, noting a backslide in her moods. She inquires about the possibility of increasing the dosage. She also mentions taking Ambien and trazodone for sleep but is unsure if she needs both. She is not taking Percocet, which was prescribed by Dr. Brush, and questions the necessity of cyclobenzaprine, which she initially thought was prescribed for leg movements. She also takes multiple supplements, including biotin, fish oil, collagen, saw palmetto, and B12, and is diligent about her skincare routine. Allie reports a recent weight gain, currently weighing 146 lbs, up from 141 lbs. She attributes this to her diet, which includes turkey burgers that she suspects may be high in sodium. She is physically active, walking regularly and noting that her legs are getting super strong again. She also discusses her relationship with a long-term partner, noting that he has recently become more involved in methodist activities and is three months sober. She expresses hope for the future but is uncertain about her living situation, as her landlord may sell the rental property where she currently resides. Social History Tobacco Use Smoking status: Never Smokeless tobacco: Never Vaping Use Vaping status: Never Used Substance Use Topics Alcohol use: No Drug use: No Past medical history, appointments, medications, allergies reviewed. Pertinent Lab/Diagnostic Studies are reviewed and discussed today Current Outpatient Medications: atorvastatin (LIPITOR) 40 mg tablet zolpidem (AMBIEN) 5 mg tablet SAW PALMETTO ORAL MAGNESIUM ORAL COLLAGEN MISC docosahexaenoic acid/epa (FISH OIL ORAL) amLODIPine (NORVASC) 2.5 mg tablet cevimeline (EVOXAC) 30 mg capsule traZODone (DESYREL) 50 mg tablet buPROPion SR (WELLBUTRIN SR) 100 mg 12 hr tablet estradiol (VIVELLE-DOT) 0.1 mg/24 hr patch fluticasone (FLONASE) 50 mcg/actuation nasal spray omeprazole (PRILOSEC) 20 mg capsule lisinopril-hydroCHLOROt hiazide (ZESTORETIC) 10-12.5 mg per tablet cyclobenzaprine (FLEXERIL) 10 mg tablet cyanocobalamin, vitamin B-12, (VITAMIN B-12 ORAL) L.acid/B.animalis,bifid um/FOS (PROBIOTIC COMPLEX ORAL) biotin/calcium carbonate (BIOTIN-CALCIUM ORAL) vitamin B complex (B COMPLEX-VITAMIN B12 ORAL) aspirin, enteric coated (ASPIR-LOW) 81 mg EC tablet meloxicam (MOBIC) 15 mg tablet potassium chloride (K-TAB) 10 mEq tablet escitalopram oxalate (LEXAPRO) 10 mg tablet gabapentin (NEURONTIN) 100 mg capsule CPAP/BIPAP/OTHER progesterone micronized (PROMETRIUM) 100 mg capsule ibuprofen (MOTRIN) 800 mg tablet mometasone (NASONEX) 50 mcg/actuation nasal spray Health Maintenance DTaP,Tdap,Td Vaccine(1 - Tdap) Hepatitis B Vaccine(1 of 3 - 19+ 3-dose series) Shingrix Vaccine(1 of 2) Pneumococcal Vaccine: 50+(1 of 1 - PCV)@ Review Of Systems Constitutional: (+) fatigue, (+) weight gain, (+) sleep disturbance Neurological: (+) memory impairment, (+) restless legs Psychiatric: (+) depressed mood, (+) anxiety, (+) mood changes Physical Exam BP 112/66 Pulse 86 Ht 154.9 cm (5' 1) Wt 66.4 kg (146 lb 6.4 oz) SpO2 97% BMI 27.66 kg/m? GENERAL: NAD, alert and oriented SKIN: unremarkable, no rash or skin lesions. HEAD: normocephalic EYES: PERRLA, EOMI, conjunctiva clear EARS: external ears normal, canals clear, TM's normal. LUNGS: Clear to auscultation bilaterally, no wheezes/rhonchi/rales. HEART: Regular rate and rhythm, no murmurs. No ectopy. EXTREMITIES: Normal, No deformities, No skin discoloration, No edema. NEURO: Awake, alert and oriented x3, cranial nerves II-XII grossly intact, normal gait, no involuntary motions Tests - P (more content not included)... Normal [facility] POLYSOMNOGRAM (PSG)on 2024 [facility] [address], [place] [address] ; PSG Study Report Name: ALLIE LYNN Date of Study: 11/17/2024 [facility]#: [id number] Age: 54 (: 1970) ESS: 01/23 Neck Circ. (cm): 37.0 Height (cm): 154.9 Weight (kg): 70.2 BMI: 29.3 Referring Provider: MICHELLE CHIN Mailcode: Sleep history: The patient is a 54 year old female with a history of witnessed apneas, waking up with dry mouth or sore throat, an urge to move the legs, excessive daytime sleepiness, and fatigue. The patient is legally blind. The patient endorses being a habitual supine and side sleeper. Pertinent past medical history: Coronary artery disease, GERD, Hyperlipidemia, Hypertension Medications: Norvasc, Aspirin, Lipitor, Biotin, Wellbutrin, Evoxac, Flexeril, Mucinex, Lexapro, Estradiol, Flonase, Neurontin, Motrin, Probiotic, Zestoretic, Mobic, Nasanex, Prilosec, Prometrium, Desyrel Sleep procedure: PSG 4 or more [facility] ([id number]) Procedure: The study was attended continuously by a fiber technologist. The monitored parameters included: left (E1-M2) and right (E2-M1) EOG, frontal (F3-M2 & F4-M1), central (C3-M2 & C4-M1) and occipital (O1-M2 & O2-M1) EEG, mental and submental EMG, left and right anterior tibialis single ECG waveform, snoring, continuous airflow with thermistor, nasal pressure transducer, chest and abdominal effort, oxygen saturation, ETCO2 and body position via video monitoring. Hypopnea definition: The peak signal excursions drop by >= 30% of pre-event baseline using nasal pressure (diagnostic study), PAP device flow (titration study) or an alternative hypopnea sensor (diagnostic study). The duration of the >= 30% drop in signal excursion is >= 10 seconds. There is a greater than or equal to 4% oxygen desaturation from pre-event baseline. Respiratory Effort Related Arousal (RERA) definition: 10 seconds characterized by increasing respiratory effort or by flattening of the nasal pressure or PAP flow waveform leading to arousal from sleep when the sequence of breaths does not meet criteria for an apnea or hypopnea. Respiratory Disturbance Index (RDI) definition: RDI = (#apneas + #hypopneas + #RERAs) x 60 / TST. If AHI is 0.0, then RDI = RERA index. SLEEP ARCHITECTURE: The study started at 23:00:32 and ended at 05:46:05. Total sleep time (TST) was 324 minutes resulting in a sleep efficiency of 80.0% (total recording time (TRT) = 405 m). There were 21 awakenings with a total time awake after sleep onset of 33.0 minutes. The sleep latency was 48.0 minutes and the REM latency was 287 minutes. The patient spent 86.4% of sleep time in the supine position. The sleep stage percentages were 6.9% stage N1, 81.8% stage N2, 0.2% stage N3 and 11.1% REM sleep. There were 223 arousals, resulting in an arousal index of 41.2. There were 76 stage shifts. RESPIRATORY DATA: Snoring was noted. There were 160 respiratory events consisting of 39 apneas [37 obstructive (94.9%), 0 mixed (0.0%), and 2 central (5.1%)], 63 hypopneas and 58 RERAs. The apnea-hypopnea index (AHI) was 18.9 and the central-apnea index (DIAMOND) was 0.4. The respiratory effort related arousal (RERA) index was 10.7. The respiratory disturbance index (RDI) was 29.6. The mean oxygen saturation during the study was 95.0%, with a minimum oxygen saturation of 83.0%. The patient spent 1.4% (4.4 min) of sleep time with an oxygen saturation below 90% and 0.8% (2.6 min) of sleep time with an oxygen saturation at or below 88%. The wake supine end-tidal CO2 (ETCO2) value was 35 mmHg. The maximum ETCO2 was 50 mmHg. The patient spent 0.0% (0.0 minutes) of sleep time with an ETCO2 above 50 mmHg and 0.0% (0.0 minutes) above 55 mmHg. Tobin-Mendez/Periodic Breathing was not present. Supplemental oxygen was not administered. REM-Time REM AHI NREM-Time NREM AHI Total-Time Total RDI Total AHI Supine 36.0 m 13.3 244.5 m 23.1 280.5 m 32.7 21.8 Off-Supine 0.0 m -- 44.0 m 0.0 44.0 m 9.5 0.0 Total 36.0 m 13.3 288.5 m 19.5 324.5 m 29.6 18.9 MOVEMENT DATA: No abnormal behavior was noted. There were 36 periodic limb movements during sleep, resulting in a PLM-index of 6.7. Of these, 18 movements were associated with arousals, resulting in a PLM-arousal index of 3.3. ECG DATA: The average heart rate during sleep was 83 beats per minute, with a range of 60 to 104. During wake, the heart rate ranged from 67 to 108 beats per minute. No arrhythmias were noted OTHER NOTABLE FINDINGS: None. ICSD DIAGNOSIS: Obstructive Sleep Apnea Syndrome [G47.33] IMPRESSION/RECOMMENDATI ONS: 1. Moderate obstructive sleep apnea exacerbated to moderate supine sleep with AHI values of 18.9 and 21.8, respectively. Respirator (more content not included)... SLEEP LAB [facility] Orthopedic Visit Reporton Orthopedic Visit Report [facility] [address] [place] [address] OFFICE VISIT Date of Service: 12/09/24 MR#: [id number] Acct: [id number] Name: ALLIE LYNN Rep #: [id number] : 1970 Provider: Dr. Phillip goldman DO Age/Sex: 54/F [place] [facility] [place] [facility] [place]: Signed Intake Vital Signs 11/24/24 15:06 12/09/24 13:28 Height 5 ft 5 ft Weight: 151 lb 2 oz BMI 29.5 Intake Visit Reasons: LEFT HIP Chief Complaint: Left Hip Pain Is patient in pain?: Yes Allergies hydrocodone bitartrate (From Vicodin) Adverse Reaction (Verified 12/09/24 13:35) Itching nitrofurantoin (From Macrobid) Adverse Reaction (Verified 12/09/24 13:35) Other nitrofurantoin macrocrystalline (From Macrobid) Adverse Reaction (Verified 12/09/24 13:35) Other propoxyphene (From Darvocet-N) Adverse Reaction (Verified 12/09/24 13:35) Other tramadol HCl (From Ultram) Adverse Reaction (Verified 12/09/24 13:35) Other Medications ???Medication ???Instructions ???Recorded ???Confirmed ???Type atorvastatin 40 mg tablet 40 mg PO QHS 01/17/17 12/09/24 His tory cyclobenzaprine 10 mg tablet 10 mg PO Q8H 10/29/17 12/09/24 His tory trazodone 50 mg tablet 50 mg PO QHS PRN insomnia 10/20/18 12/09/24 History meloxicam 15 mg tablet 11/20/21 12/09/24 History omeprazole 20 mg capsule,delayed 11/20/21 12/09/24 History release amlodipine 2.5 mg tablet 2.5 mg PO QDAY 12/09/24 12/09/24 H istory aspirin 81 mg tablet,delayed 81 mg PO QDAY 12/09/24 12/09/24 Hi story release (Adult Low Dose Aspirin) bupropion HCl 100 mg tablet,12 hr 100 mg PO QAM 12/09/24 12/09/24 H istory sustained-release escitalopram oxalate 10 mg tablet 10 mg PO QDAY 12/09/24 12/09/24 H istory estradiol 0.1 mg/24 hr semiweekly transdermal 12/09/24 12/09/24 His tory transdermal patch (Darling) lisinopril 10 1 tab PO QDAY 12/09/24 12/09/24 Hi story mg-hydrochlorothiazide 12.5 mg tablet magnesium 200 mg tablet 200 mg PO QDAY 12/09/24 12/09/24 H istory omega-3 720 pj-vnk-bjp-fish cap PO 12/09/24 12/09/24 History oil-vit D3 25 mcg capsule potassium chloride 10 mEq 10 meq PO QDAY 12/09/24 12/09/24 H istory tablet,extended release vitamin B12 500 mcg-folic acid 400 1 tab PO QDAY 12/09/24 12/09/24 History mcg tablet zolpidem 5 mg tablet 5 mg PO QHS PRN 12/09/24 12/09/24 History PFSH Medical History History of trigger finger Fibromyalgia Restless legs Hot flashes Legal blindness of both eyes as defined in [place] PXE (pseudoxanthoma elasticum) Hypertension Surgical History Status post glaucoma surgery S/P right knee arthroscopy S/P Family History Father Lung cancer Mother COPD (chronic obstructive pulmonary disease) CVA (cerebral vascular accident) Son Myocardial infarction Other Breast cancer Ovarian cancer Social History household members: none housing: house Smoking Status: Never smoker alcohol intake: current alcohol intake frequency: holidays/special occasions only substance use type: does not use HPI LEFT HIP Details: This documentation accurately reflects the service provided and the decisions made by me, Dr. Phillip Pozo, DO 12/09/24 08. Part of today???s visit was documented by Bianka Cardoza ATC, acting as scribe. ALLIE LYNN is a 54 year old F here today for left hip pain. Patient states the hip has been bothering her for several years. She has had many injections with Dr. Betancourt. She states to get into the car she has to lift it up to get into the car. She describes the pain right into the hip joint and she states occasionally it will wrap into the sciatic area. She does have pain into the hip. She denies any numbness/tingling down the leg. Patient is unsure if she has done physical therapy for the hip. Patient states she has tried salonpas patch in the past but denies any pain medication. She states she walks quite a bit and is up on it all the time. She does have stairs in her house and she lives alone. She denies any surgery to the hip. She also complains of right shoulder pain. She was seen for this right shoulder on 11/06/2023 and she had an MRI done as well as a steroid injection on 11/06/2023. She states she was carrying air conditioning units on her own and thinks she reinjured the shoulder. She has trouble getting dressed as well as putting her arm above her head at all. Ortho Exam General General: Yes no acute distress (she has family member present) Neurologic: Yes alert and Yes oriented x3 Psychologic: Yes reasonable and appropriate Right Shoulde (more content not included)... Normal [facility] ALLIE [facility] ([id number]) 1970 F [place] Date Time Provider Department 12/07/24 IFEOMA DAVIS During your visit today, we recorded the following information about you: Dara Valdez RN 12/07/2024 11:10 AM Signed Patient calls and states that she has been having issues with sleeping. Patient is currently on Trazodone for sleep. Patient states that this has not been working for her. Patient states that she is needing a c-pap however sleep waiting for sleep study results to be read.. Patient is asking if provider can prescribe Ambien for her? Patient states that she will stop taking the Trazodone. Patient has a 6 week follow up scheduled with Dr. Davis on 12/29/2024 but states that she needs something to help her sleep sooner. Please review and advise, BRITTANY Benson Chitra, MD 12/07/2024 5:37 PM Signed Rx for her. Regards, Janet Pastor MD, LPN 12/08/2024 10:05 AM Signed Called and left message for patient, on self identified voicemail Janet Meza LPN December 08, 2024 10:05 AM Allergies As of Date: 12/07/2024 Noted Allergy Reaction ULTRAM (TRAMADOL HCL) 03/12/2006 11 - Vomiting DARVOCET A500 (PROPOXYPHENE N-GABRIEL*04/28/2012 1 - Mental Status Change HYDROCODONE BITARTRATE 10/19/2017 9 - Itching NITROFURANTOIN 03/05/2020 14 - Other: See Comments Comments: Loss of conciousness OPIOIDS - MORPHINE ANALOGUES 03/05/2020 9 - Itching PROPOXYPHENE 03/05/2020 14 - Other: See Comments Comments: Hallucinations TRAMADOL 03/05/2020 14 - Other: See Comments Comments: Loss of conciousness VICODIN (HYDROCODONE-ACETAMINOP HE*04/28/2012 9 - Itching Date Reviewed: 11/19/2024 Reviewed by: Older, David, MED PEDS.HYDROGENATION STILL OPERATOR - Fully Assessed Reason for Visit: Patient Question [1477] Primary Visit Diagnosis:Insomnia, unspecified type [G47.00] Order(s):zolpidem (AMBIEN) 5 mg tabletTake 1 tablet by mouth at bedtime as needed (for insomnia.) for up to 90 days.Disp: 30 tabletRfl: 2 Prescriptions as of 12/08/2024 - zolpidem (AMBIEN) 5 mg tablet Take 1 tablet by mouth at bedtime as needed (for insomnia.) for up to 90 days. - potassium chloride (K-TAB) 10 mEq tablet Take 1 tablet by mouth once daily. - escitalopram oxalate (LEXAPRO) 10 mg tablet Take 1 tablet by mouth once daily. - SAW PALMETTO ORAL Take by mouth once daily. - MAGNESIUM ORAL Take by mouth once daily. - COLLAGEN MISC - oxyCODONE-acetaminophen (PERCOCET) 5-325 mg tablet Take by mouth. - docosahexaenoic acid/epa (FISH OIL ORAL) Take by mouth once daily. - amLODIPine (NORVASC) 2.5 mg tablet Take 1 tablet by mouth once daily. - cevimeline (EVOXAC) 30 mg capsule Take 1 capsule by mouth three times a day. - traZODone (DESYREL) 50 mg tablet Take 1 tablet by mouth daily at bedtime. - buPROPion SR (WELLBUTRIN SR) 100 mg 12 hr tablet Take 1 tablet by mouth once daily. - estradiol (VIVELLE-DOT) 0.1 mg/24 hr patch Apply 1 Patch as directed two times a week. TWICE WEEKLY - progesterone micronized (PROMETRIUM) 100 mg capsule Take 1 capsule by mouth daily at bedtime. - fluticasone (FLONASE) 50 mcg/actuation nasal spray Use 2 Sprays in each nostril once daily. Rinse mouth after use. - gabapentin (NEURONTIN) 100 mg capsule Take 1 capsule by mouth daily at bedtime for 181 days. - atorvastatin (LIPITOR) 40 mg tablet Take 1 tablet by mouth once daily. - omeprazole (PRILOSEC) 20 mg capsule Take 1 capsule by mouth once daily. - diphenhydrAMINE (BENADRYL) 25 mg capsule Take 1-2 capsules by mouth at bedtime as needed. - lisinopril-hydroCHLOROt hiazide (ZESTORETIC) 10-12.5 mg per tablet Take 1 tablet by mouth once daily. - meloxicam (MOBIC) 15 mg tablet Take 1 tablet by mouth once daily. - cyclobenzaprine (FLEXERIL) 10 mg tablet Take 1 tablet by mouth two times a day as needed. - cyanocobalamin, vitamin B-12, (VITAMIN B-12 ORAL) Take by mouth. - dextromethorphan-guaiFE Nesin (MUCINEX DM) 30-600 mg per tablet Take 1 tablet by mouth two times a day. - ibuprofen (MOTRIN) 800 mg tablet Take 1 tablet by mouth every 8 hours as needed for pain. Take with food. - mometasone (NASONEX) 50 mcg/actuation nasal spray USE 2 SPRAYS NASALLY ONCE DAILY. RINSE MOUTH AFTER USE. - L.acid/B.animalis,bifid um/FOS (PROBIOTIC COMPLEX ORAL) Take by mouth. - biotin/calcium carbonate (BIOTIN-CALCIUM ORAL) Take by mouth. - vitamin B complex (B COMPLEX-VITAMIN B12 ORAL) Take by mouth once daily. - aspirin, enteric coated (ASPIR-LOW) 81 mg EC tablet Take 1 tablet by mouth once daily. 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 Normal [facility] 12-01-2024 [place] Telephone (SLEWST) ALLIE LYNN ([id number]) 1970 [facility] Date Time Provider Department 12/01/24 MICHELLE CHIN During your visit today, we recorded the following information about you: Dara Valdez RN 12/01/2024 8:59 AM Signed Patient calls and states that she was at [facility] for Sleep study on 11/17/2024. Patient asking about results for sleep study. Please review and advise, BRITTANY Benson Ashley 12/07/2024 10:05 AM Signed Patient calling again for status update on sleep study results. PSS reviewed provider's response in unread Granifyt Message. Patient asking to be contacted as soon as results are in. She states she is struggling to sleep. Jackie Freitas MA 12/07/2024 11:36 AM Signed This was ordered by sleep provider: Michelle Chin. Results must come from ordering provider. Once sleep provider receives results the sleep office will contact patient. RISHI Kim Gillian, OCCA 12/11/2024 11:25 AM Signed PSG not yet resulted as of 12/11. JASMINE Lopez Krystle, RN 12/16/2024 10:38 AM Signed Patient calls to check on status of sleep study results. Noted PSG not yet resulted. Patient to contact [facility] to enquire why it is not resulted yet. BRITTANY Lanza Jessica, LPN 12/17/2024 2:32 PM Signed Please see result note dated 12-17-24. Letty Morales LPN Allergies As of Date: 12/01/2024 Noted Allergy Reaction ULTRAM (TRAMADOL HCL) 03/12/2006 11 - Vomiting DARVOCET A500 (PROPOXYPHENE N-GABRIEL*04/28/2012 1 - Mental Status Change HYDROCODONE BITARTRATE 10/19/2017 9 - Itching NITROFURANTOIN 03/05/2020 14 - Other: See Comments Comments: Loss of conciousness OPIOIDS - MORPHINE ANALOGUES 03/05/2020 9 - Itching PROPOXYPHENE 03/05/2020 14 - Other: See Comments Comments: Hallucinations TRAMADOL 03/05/2020 14 - Other: See Comments Comments: Loss of conciousness VICODIN (HYDROCODONE-ACETAMINOP HE*04/28/2012 9 - Itching Date Reviewed: 11/19/2024 Reviewed by: David Anna APRN.HYDROGENATION STILL OPERATOR - Fully Assessed Reason for Visit: Results [95] Prescriptions as of 12/17/2024 - CPAP/BIPAP/OTHER APAP 5-18 cmH2O DME Chanelle Argyle - zolpidem (AMBIEN) 5 mg tablet Take 1 tablet by mouth at bedtime as needed (for insomnia.) for up to 90 days. - potassium chloride (K-TAB) 10 mEq tablet Take 1 tablet by mouth once daily. - escitalopram oxalate (LEXAPRO) 10 mg tablet Take 1 tablet by mouth once daily. - SAW PALMETTO ORAL Take by mouth once daily. - MAGNESIUM ORAL Take by mouth once daily. - COLLAGEN MISC - oxyCODONE-acetaminophen (PERCOCET) 5-325 mg tablet Take by mouth. - docosahexaenoic acid/epa (FISH OIL ORAL) Take by mouth once daily. - amLODIPine (NORVASC) 2.5 mg tablet Take 1 tablet by mouth once daily. - cevimeline (EVOXAC) 30 mg capsule Take 1 capsule by mouth three times a day. - traZODone (DESYREL) 50 mg tablet Take 1 tablet by mouth daily at bedtime. - buPROPion SR (WELLBUTRIN SR) 100 mg 12 hr tablet Take 1 tablet by mouth once daily. - estradiol (VIVELLE-DOT) 0.1 mg/24 hr patch Apply 1 Patch as directed two times a week. TWICE WEEKLY - progesterone micronized (PROMETRIUM) 100 mg capsule Take 1 capsule by mouth daily at bedtime. - fluticasone (FLONASE) 50 mcg/actuation nasal spray Use 2 Sprays in each nostril once daily. Rinse mouth after use. - gabapentin (NEURONTIN) 100 mg capsule Take 1 capsule by mouth daily at bedtime for 181 days. - atorvastatin (LIPITOR) 40 mg tablet Take 1 tablet by mouth once daily. - omeprazole (PRILOSEC) 20 mg capsule Take 1 capsule by mouth once daily. - diphenhydrAMINE (BENADRYL) 25 mg capsule Take 1-2 capsules by mouth at bedtime as needed. - lisinopril-hydroCHLOROt hiazide (ZESTORETIC) 10-12.5 mg per tablet Take 1 tablet by mouth once daily. - meloxicam (MOBIC) 15 mg tablet Take 1 tablet by mouth once daily. - cyclobenzaprine (FLEXERIL) 10 mg tablet Take 1 tablet by mouth two times a day as needed. - cyanocobalamin, vitamin B-12, (VITAMIN B-12 ORAL) Take by mouth. - dextromethorphan-guaiFE Nesin (MUCINEX DM) 30-600 mg per tablet Take 1 tablet by mouth two times a day. - ibuprofen (MOTRIN) 800 mg tablet Take 1 tablet by mouth every 8 hours as needed for pain. Take with food. - mometasone (NASONEX) 50 mcg/actuation nasal spray USE 2 SPRAYS NASALLY ONCE DAILY. RINSE MOUTH AFTER USE. - L.acid/B.animalis,bifid um/FOS (PROBIOTIC COMPLEX ORAL) Take by mouth. - biotin/calcium carbonate (BIOTIN-CALCIUM ORAL) Take by mouth. - vitamin B complex (B COMPLEX-VITAMIN B12 ORAL) Take by mouth once daily. - aspirin, enteric coated (ASPIR-LOW) 81 mg EC tablet Take 1 tablet by mouth once daily. Meds Comments as of 09/05/2021: 09/05/21 The medications are managed by this patient by: PATIENT Linda Catherine, OA Problem List As Of Date 12/01/2024 Noted Resol (more content not included)... Normal [facility] HIP, UNI W/ Pelvis 2-3 Views on 11-24-2024 HIP, UNI W/ Pelvis 2-3 Views [facility] Imaging Services [address] [place], [place] [id number] HIP, UNI W/ Pelvis 2-3 Views MR#: [id number] Acct: [id number] Name: AAMIRALLEIDEANNA Rep #: [id number] : 1970 F 54 From: Danie Salvador MD PCP: Dr. Ifeoma Davis MD Status: DEP AMB Study: HIP, UNI W/ Pelvis 2-3 Views Date of Exam: Exam# [id number] Ordering Dr: Allie Prakash PROCEDURE: HIP, UNI W/ PELVIS 2-3 VIEWS 11/24/2024 REASON FOR EXAM: PAIN, NKI TECHNIQUE: 2 views of right hip. AP weight-bearing pelvis. COMPARISON: 10/20/2018 and 11/24/2024 FINDINGS: There is appearance of a pelvic tilt down towards the left side. Pubic symphysis and symmetric appearing SI joints appear within limits. Moderate to severe appearing left hip osteoarthrosis with central to lateral joint space narrowing near phno-qz-jqxt contact. Lateral acetabular osteophyte formation and large femoral head osteophytes with buttressing. Right hip mild to moderate appearing osteoarthrosis with phhx-fl-thmokdov lateral joint space narrowing and small osteophyte formation. No fracture or dislocation identified. RAD/HIP, UNI W/ Pelvis 2-3 Views IMPRESSION: Dazz-rosschk-vbwe-right appearing osteoarthrosis as described above with associated appearing left downward pelvic tilt. Reading Location: [id number] CC: Allie Prakash; Dr. Ifeoma Davis MD Trade Marker: Signed Normal [facility] Hip Min 2 Views (Portable)on 11-24-2024 Hip Min 2 Views (Portable) [facility] [address] [place] [address] Hip Min 2 Views (Portable) MR#: [id number] Acct: [id number] Name: ALLIE LYNN ANN Rep #: [id number] : 1970 F 54 From: Laya Tay PCP: Dr. Ifeoma Davis MD Status: REG CLI Study: Hip Min 2 Views (Portable) Date of Exam: 11/24 Exam# [id number] Ordering Dr: Allie Prakash PROCEDURE: HIP MIN 2 VIEWS (PORTABLE) 11/24/2024 REASON FOR EXAM: LEFT HIP PAIN VERSUS RADICULAR SYMPTOMS TECHNIQUE: 2 views of each hip. COMPARISON: None FINDINGS: Two views of the left hip demonstrate degenerative changes. There are no fractures or dislocations. Arteriosclerotic vascular disease of the vessels in the groin region are noted. Soft tissues are grossly unremarkable RAD/Hip Min 2 Views (Portable) IMPRESSION: Degenerative changes left hip. Arteriosclerotic vascular disease of the vessels of the left groin region. Reading Location: [facility] CC: Allie Prakash; Dr. Ifeoma Davis MD Trade Marker: [facility] [place] Telephone (INTMWS) ALLIE LYNN ([id number]) 1970 F [place] Date Time Provider Department 11/20/24 DAVID ANNA During your visit today, we recorded the following information about you: Allie Mcknight LPN 11/20/2024 10:42 AM Signed Patient calling asking about her lab results that she had done yesterday, she can see results on my chart. Glucose was abnormal at 73, she said she was not fasting for the labs. Patient said she does not have an appetite, she ate a banana for breakfast yesterday. Concerned saw her Potassium was low also. Please advise Latest Ref Rng 11/19/2024 Glucose 74 - 99 mg/dL 73 (L) BUN 7 - 21 mg/dL 12 Creatinine 0.58 - 0.96 mg/dL 0.95 Sodium 136 - 144 mmol/L 140 Potassium 3.7 - 5.1 mmol/L 3.5 (L) Chloride 98 - 107 mmol/L 99 CO2 22 - 30 mmol/L 27 Anion Gap 8 - 15 mmol/L 14 Calcium 8.5 - 10.2 mg/dL 9.7 eGFR >=60 mL/min/1.73m? 71 Legend: (L) Low David Anna APRN.DEBORAH 11/20/2024 12:35 PM Signed Glucose is only slightly low and I am not concerned with that. The potassium is probably from decreased dietary intake and being on lisinopril hydrochlorothiazide for her blood pressure. I would recommend we start a daily potassium supplement an recheck in 1 week after starting the supplement. Take with food to decrease nausea. Thank you David Anna APRN.Spring Pierce, BRITTANY 11/20/2024 12:46 PM Signed Pt called and is notified of providers results and instructions. Pt voices understanding. Spring Peñaloza RN Allergies As of Date: 11/20/2024 Noted Allergy Reaction ULTRAM (TRAMADOL HCL) 03/12/2006 11 - Vomiting DARVOCET A500 (PROPOXYPHENE N-GABRIEL*04/28/2012 1 - Mental Status Change HYDROCODONE BITARTRATE 10/19/2017 9 - Itching NITROFURANTOIN 03/05/2020 14 - Other: See Comments Comments: Loss of conciousness OPIOIDS - MORPHINE ANALOGUES 03/05/2020 9 - Itching PROPOXYPHENE 03/05/2020 14 - Other: See Comments Comments: Hallucinations TRAMADOL 03/05/2020 14 - Other: See Comments Comments: Loss of conciousness VICODIN (HYDROCODONE-ACETAMINOP HE*04/28/2012 9 - Itching Date Reviewed: 11/19/2024 Reviewed by: David Anna APRN.HYDROGENATION STILL OPERATOR - Fully Assessed Reason for Visit: Results, Lab [1201] Primary Visit Diagnosis:Hypokalemia [E87.6] Order(s):potassium chloride (K-TAB) 10 mEq tabletTake 1 tablet by mouth once daily.Disp: 30 tabletRfl: 1 BASIC METABOLIC PANEL [SQBMP] Order #: [id number] FUTURE Prescriptions as of 11/20/2024 - potassium chloride (K-TAB) 10 mEq tablet Take 1 tablet by mouth once daily. - escitalopram oxalate (LEXAPRO) 10 mg tablet Take 1 tablet by mouth once daily. - SAW PALMETTO ORAL Take by mouth once daily. - MAGNESIUM ORAL Take by mouth once daily. - COLLAGEN MISC - oxyCODONE-acetaminophen (PERCOCET) 5-325 mg tablet Take by mouth. - docosahexaenoic acid/epa (FISH OIL ORAL) Take by mouth once daily. - amLODIPine (NORVASC) 2.5 mg tablet Take 1 tablet by mouth once daily. - cevimeline (EVOXAC) 30 mg capsule Take 1 capsule by mouth three times a day. - traZODone (DESYREL) 50 mg tablet Take 1 tablet by mouth daily at bedtime. - buPROPion SR (WELLBUTRIN SR) 100 mg 12 hr tablet Take 1 tablet by mouth once daily. - estradiol (VIVELLE-DOT) 0.1 mg/24 hr patch Apply 1 Patch as directed two times a week. TWICE WEEKLY - progesterone micronized (PROMETRIUM) 100 mg capsule Take 1 capsule by mouth daily at bedtime. - fluticasone (FLONASE) 50 mcg/actuation nasal spray Use 2 Sprays in each nostril once daily. Rinse mouth after use. - gabapentin (NEURONTIN) 100 mg capsule Take 1 capsule by mouth daily at bedtime for 181 days. - atorvastatin (LIPITOR) 40 mg tablet Take 1 tablet by mouth once daily. - omeprazole (PRILOSEC) 20 mg capsule Take 1 capsule by mouth once daily. - diphenhydrAMINE (BENADRYL) 25 mg capsule Take 1-2 capsules by mouth at bedtime as needed. - lisinopril-hydroCHLOROt hiazide (ZESTORETIC) 10-12.5 mg per tablet Take 1 tablet by mouth once daily. - meloxicam (MOBIC) 15 mg tablet Take 1 tablet by mouth once daily. - cyclobenzaprine (FLEXERIL) 10 mg tablet Take 1 tablet by mouth two times a day as needed. - cyanocobalamin, vitamin B-12, (VITAMIN B-12 ORAL) Take by mouth. - dextromethorphan-guaiFE Nesin (MUCINEX DM) 30-600 mg per tablet Take 1 tablet by mouth two times a day. - ibuprofen (MOTRIN) 800 mg tablet Take 1 tablet by mouth every 8 hours as needed for pain. Take with food. - mometasone (NASONEX) 50 mcg/actuation nasal spray USE 2 SPRAYS NASALLY ONCE DAILY. RINSE MOUTH AFTER USE. - L.acid/B.animalis,bifid um/FOS (PROBIOTIC COMPLEX ORAL) Take by mouth. - biotin/calcium carbonate (BIOTIN-CALCIUM ORAL) Take by mouth. - vitamin B complex (B COMPLEX-VITAMIN B12 ORAL) Take by mouth once daily. - aspirin, enteric coated (ASPIR-LOW) 81 mg EC tablet Take 1 tablet by mouth once daily. Meds Comments as of (more content not included)... Normal [facility] Basic metabolic 2000 panelon 11-19-2024 Anion gap [Moles/Vol] 14 mmol/L Normal 8-15 [facility] Comment on above: Order Comment: Speci men Type: BLOOD SPECIMEN Ordering Facility: [facility] Address: [address] [place], [place] [id number] Performed By: #### 2 4321-2 #### [facility] CLIA [id number] [address] [place] [address] [place] Calcium [Mass/Vol] 9.7 mg/dL Normal 8.5-10.2 [facility] Comment on above: Order Comment: Speci men Type: BLOOD SPECIMEN Ordering Facility: [facility] Address: [address] [place] [address] Performed By: #### 2 4321-2 #### [facility] CLIA [id number] [address] [place] [address] [place] Chloride [Moles/Vol] 99 mmol/L Normal 98-107 [facility] Comment on above: Order Comment: Speci men Type: BLOOD SPECIMEN Ordering Facility: [facility] Address: [address] [place] [address] Performed By: #### 2 4321-2 #### [facility] CLIA [id number] [address] [place] [address] [place] CO2 [Moles/Vol] 27 mmol/L Normal 22-30 [facility] Comment on above: Order Comment: Speci men Type: BLOOD SPECIMEN [facility] [facility] Address: [address] [place], [place] [id number] Performed By: #### 2 4321-2 #### [facility] CLIA [id number] [address] [place], [place] [address] [place] Creatinine [Mass/Vol] 0.95 mg/dL Normal 0.58-0.96 [facility] Comment on above: Order Comment: Speci men Type: BLOOD SPECIMEN Ordering Facility: [facility] Address: [address] [place], [place] [address] Performed By: #### 2 4321-2 #### [facility] CLIA [id number] [address] [place] [address] [place] Creatinine and Glomerular filtration rate.predicted panel (S/P/Bld) 71 mL/min/1.73m??? Normal >=60 [facility] Comment on above: Order Comment: Brandan eaton Type: BLOOD SPECIMEN Ordering Facility: [facility] Address: [address] [place] [address] Result Comment: Zaria mated Glomerular Filtration Rate (eGFR) is calculated using the 2020 CKD-EPI creatinine equation. This equation utilizes serum creatinine, sex, and age as parameters. The creatinine assay has traceable calibration to isotope dilution-mass spectrometry. Refer to KDIGO guidelines for clinical interpretation. In patients with unstable renal function, e.g. those with acute kidney injury, the eGFR may not accurately reflect actual GFR. Performed By: #### 2 4321-2 #### [facility] CLIA [id number] [address] [place] [address] [place] Glucose [Mass/Vol] 73 mg/dL Low 74-99 [facility] Comment on above: Order Comment: Brandan eaton Type: BLOOD SPECIMEN Ordering Facility: [facility] Address: [address] [place] [address] Result Comment: The [place] Diabetes Association (ADA) provides guidance for cutoff values for fasting glucose and random glucose. The ADA defines fasting as no caloric intake for at least 8 hours. Fasting plasma glucose results between 100 to 125 mg/dL indicate increased risk for diabetes (prediabetes). Fasting plasma glucose results greater than or equal to 126 mg/dL meet the criteria for diagnosis of diabetes. In the absence of unequivocal hyperglycemia, results should be confirmed by repeat testing. In a patient with classic symptoms of hyperglycemia or hyperglycemic crisis, random plasma glucose results greater than or equal to 200 mg/dL meet the criteria for diagnosis of diabetes. Reference: Standards of Medical Care in Diabetes 2016, [place] [employer]. Diabetes Care. 2016.39(Suppl 1). Performed By: #### 2 4321-2 #### [facility] CLIA [id number] [address] [place] [address] [place] Potassium [Moles/Vol] 3.5 mmol/L Low 3.7-5.1 [facility] Comment on above: Order Comment: Speci men Type: BLOOD SPECIMEN Ordering Facility: [facility] Address: [address] [place] [address] Performed By: #### 2 4321-2 #### [facility] CLIA [id number] [address] [place] [address] [place] Sodium [Moles/Vol] 140 mmol/L Normal 136-144 [facility] Comment on above: Order Comment: Speci men Type: BLOOD SPECIMEN Ordering Facility: [facility] Address: [address] [place] [address] Performed By: #### 2 4321-2 #### [facility] CLIA [id number] [address] [place] [address] [place] Urea nitrogen [Mass/Vol] 12 mg/dL Normal 7-21 [facility] Comment on above: Order Comment: Speci men Type: BLOOD SPECIMEN Ordering Facility: [facility] Address: [address] [place] [address] Performed By: #### 2 4321-2 #### [facility] CLIA [id number] [address] [place] [address] [place] CNOVon 11-19-2024 CNOV Office Visit (INTMWS ) ALLIE LYNN ([id number]) 1970 F [place] Date Time Provider Department 11/19/24 1:00 PM DAVID ANNA INTMWS During your visit today, we recorded the following information about you: David Anna APRN.CNP 11/19/2024 2:20 PM Signed CC: Patient presents with: Recheck: 2 week follow up HPI Allie Lynn is a 54 year old female who presents today for brain fog and some fatigue. Symptoms may have improved some but still trying to work on her sleep study in hopes getting this figured out will improve these symptoms further. 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 Started Wellbutrin 6 weeks ago to help with her motivation fatigue and bit of depression and anxiety after a breakup. She feels this is helping well and she feels good on this. Sleep: Has not been effected with starting this medication and awaiting results of a sleep study Appetite: decreased some Suicidal Thoughts: No suicidal ideation, intent or plan Support: Comes from multiple sources including friends and some family Counseling: Yes, Dry Mouth: taking the cevimeline 3 times a day and tolerating well with great improvement. Has had some short hot flashes about once a week that last about a minute since starting the new medications. HTN: Had amlodipine added at visit 6 weeks ago for consistent elevated blood pressure. Ms. Lynn denies headache, chest pain, palpitations, dyspnea, and peripheral edema. Patient denies any side effects of her medication(s) and is compliant with their regimen. She does not check BP's generally. Allie walking when weather is nice. She watches her diet for sodium, low fat and low cholesterol most of the time. Last 3 Encounter BP Readings: Date: BP: 11/03/2024 114/78 10/31/2024 141/88 10/12/2024 106/63 REVIEW OF SYSTEMS See HPI 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 Macular degeneration disease bilateral Mitral prolapse per Mitral valve disorders(424.0) Mitral valve stenosis and aortic valve stenosis Myalgia and myositis, unspecified PXE (pseudoxanthoma elasticum) Rheumatic fever 1995 Rheumatic heart disease, unspecified Tubular adenoma of colon Unspecified essential hypertension PAST SURGICAL HISTORY Procedure Laterality Date ARTHROSCOPY KNEE DIAGNOSTIC W/WO SYNOVIAL BX SPX 1995 Arthroscopy, knee AVASTIN (BEVACIZUMAB) 1.25MG INTRAVITREAL INJECTION OD (RIGHT EYE) Right x 5 (03/12/17) DELIVERY ONLY 1988, 1991, 1993 , low cervical-x 3 COLONOSCOPY FLX DX W/COLLJ SPEC WHEN PFRMD 06/22/2019 Colonoscopy COLONOSCOPY SCREENING 05/30/[address] MAXILLOFAC/SINUS 06/29/2015 normal EGD W/O BRSH SPEC VARICIES INJ 05/30/2023 Small hiatal hernia, fundic gland polyp, mild chronic gastritis ENDOMETRIAL BX W/WO ENDOCERVIX BX W/O DILAT SPX 02/18/2012 ESOPHAGOGASTRODUODENOSC OPY TRANSORAL DIAGNOSTIC 02/03/2018 EGD INCISION OF EYE, TRABECULECTOMY Right 10/26/2021 LASER SELECTA 2 TRABECULOPLASTY Left 01/08/2020 LASER TRABECULOPLASTY OD (RIGHT EYE) Right 10/26/2021 PAST SURGICAL HISTORY OF Bilateral trigger finger release PAST SURGICAL HISTORY OF Left laser surgery to repair capsular rupture REMV CATARACT EXTRACAP,INSERT LENS Right 06/25/2022 REMV CATARACT EXTRACAP,INSERT LENS Left 11/15/2022 PEIOL OS and bleb revision (bleb reduction) x 11/15/2022- Dr. Cynthia Ramos M.D. S [place] [id number] ALLERGIES Ultram [Tramadol Hcl], Darvocet A500 [Propoxyphene N-Acetaminophen], Hydrocodone Bitartrate, Nitrofurantoin, Opioids - Morphine Analogues, Propoxyphene, Tramadol, and Vicodin [Hydrocodone-Acetaminop hen] MEDICATIONS escitalopram oxalate (LEXAPRO) 10 mg tablet Take 1 tablet by mouth once daily. SAW PALMETTO ORAL Take by mouth once daily. MAGNESIUM ORAL Take by mouth once daily. COLLAGEN MISC oxyCODONE-acetaminophen (PERCOCET) 5-325 mg tablet Take by mouth. docosahexaenoic acid/epa (FISH OIL ORAL) Take by mouth once daily. amLODIPine (NORVASC) 2.5 mg tablet Take 1 tablet by mouth once daily. cevimeline (EVOXAC) 30 mg capsule Take 1 capsule by mouth three times a day. traZODone (DESYREL) 50 mg tablet Take 1 tablet by mouth daily at bedtime. (Patient taking differently: Take 100 mg by mouth daily at bedtime.) buPROPion SR (WELLBUTRIN SR) 100 mg 12 hr tablet Take 1 tablet by mouth once daily. estradiol (VIVELLE-DOT) 0.1 mg/24 hr patch Apply 1 Patch as directed two times a week. TWICE WEEKLY progesterone micr (more content not included)... Normal [facility] CNOVon 11-17-2024 CNOV Office Visit (LDNESL ) ALLIE LYNN ([id number]) 1970 F [place] Date Time Provider Department 11/17/24 9:00 PM SLEEP LAB LODI BED 1 LDNESL During your visit today, we recorded the following information about you: Referring Provider: KIMBERLEY AMBROCIO [[id number]] Allergies As of Date: 11/17/2024 Noted Allergy Reaction ULTRAM (TRAMADOL HCL) 03/12/2006 11 - Vomiting DARVOCET A500 (PROPOXYPHENE N-GABRIEL*04/28/2012 1 - Mental Status Change HYDROCODONE BITARTRATE 10/19/2017 9 - Itching NITROFURANTOIN 03/05/2020 14 - Other: See Comments Comments: Loss of conciousness OPIOIDS - MORPHINE ANALOGUES 03/05/2020 9 - Itching PROPOXYPHENE 03/05/2020 14 - Other: See Comments Comments: Hallucinations TRAMADOL 03/05/2020 14 - Other: See Comments Comments: Loss of conciousness VICODIN (HYDROCODONE-ACETAMINOP HE*04/28/2012 9 - Itching Date Reviewed: 11/03/2024 Reviewed by: Janet Meza LPN - Fully Assessed Reason for Visit: Procedure [88] Visit Diagnoses:Snoring [R06.83] Excessive daytime sleepiness [G47.19] Non-restorative sleep [G47.8] PLMD (periodic limb movement disorder) [G47.61] Primary hypertension [I10] Order(s):POLYSOMNOGRAM (PSG) [9940368] Order #: [id number]. #:[id number] Prescriptions as of 01/05/2025 - meloxicam (MOBIC) 15 mg tablet Take 1 tablet by mouth once daily. - potassium chloride (K-TAB) 10 mEq tablet Take 1 tablet by mouth once daily. - escitalopram oxalate (LEXAPRO) 10 mg tablet Take 1 tablet by mouth once daily. - gabapentin (NEURONTIN) 100 mg capsule Take 1 capsule by mouth daily at bedtime for 181 days. - atorvastatin (LIPITOR) 40 mg tablet Take 1 tablet by mouth once daily. - CPAP/BIPAP/OTHER APAP 5-18 cmH2O DME [facility] - zolpidem (AMBIEN) 5 mg tablet Take 1 tablet by mouth at bedtime as needed (for insomnia.) for up to 90 days. - SAW PALMETTO ORAL Take by mouth once daily. - MAGNESIUM ORAL Take by mouth once daily. - COLLAGEN MISC - docosahexaenoic acid/epa (FISH OIL ORAL) Take by mouth once daily. - amLODIPine (NORVASC) 2.5 mg tablet Take 1 tablet by mouth once daily. - cevimeline (EVOXAC) 30 mg capsule Take 1 capsule by mouth three times a day. - traZODone (DESYREL) 50 mg tablet Take 1 tablet by mouth daily at bedtime. - buPROPion SR (WELLBUTRIN SR) 100 mg 12 hr tablet Take 1 tablet by mouth once daily. - estradiol (VIVELLE-DOT) 0.1 mg/24 hr patch Apply 1 Patch as directed two times a week. TWICE WEEKLY - progesterone micronized (PROMETRIUM) 100 mg capsule Take 1 capsule by mouth daily at bedtime. - fluticasone (FLONASE) 50 mcg/actuation nasal spray Use 2 Sprays in each nostril once daily. Rinse mouth after use. - omeprazole (PRILOSEC) 20 mg capsule Take 1 capsule by mouth once daily. - lisinopril-hydroCHLOROt hiazide (ZESTORETIC) 10-12.5 mg per tablet Take 1 tablet by mouth once daily. - cyclobenzaprine (FLEXERIL) 10 mg tablet Take 1 tablet by mouth two times a day as needed. - cyanocobalamin, vitamin B-12, (VITAMIN B-12 ORAL) Take by mouth once daily. - ibuprofen (MOTRIN) 800 mg tablet Take 1 tablet by mouth every 8 hours as needed for pain. Take with food. - mometasone (NASONEX) 50 mcg/actuation nasal spray USE 2 SPRAYS NASALLY ONCE DAILY. RINSE MOUTH AFTER USE. - L.acid/B.animalis,bifid um/FOS (PROBIOTIC COMPLEX ORAL) Take by mouth once daily. - biotin/calcium carbonate (BIOTIN-CALCIUM ORAL) Take by mouth. - vitamin B complex (B COMPLEX-VITAMIN B12 ORAL) Take by mouth once daily. - aspirin, enteric coated (ASPIR-LOW) 81 mg EC tablet Take 1 tablet by mouth once daily. 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] 04/15/2017 Mixed hyperlipidemia [E78.2] 04/15/2017 BPPV (benign paroxysmal positional vertigo) [H8*04/15/2017 Nausea [R11.0] 01/29/2018 Bilateral upper abdominal pain [R10.11, R10.12] 01/29/2018 Secondary glaucoma, indeterminate stage, 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 Normal [facility] POLYSOMNOGRAM (PSG)/HOME SLE EP APNEA TEST (HSAT)on 11-17-2024 POLYSOMNOGRAM (PSG)/HOME SLEEP APNEA TEST (HSAT) [facility] [address], [place] [address] ; PSG Study Report Name: ALLIE LYNN Date of Study: 11/17/2024 CC#: [id number] Age: 54 (: 1970) ESS: 01/23 Neck Circ. (cm): 37.0 Height (cm): 154.9 Weight (kg): 70.2 BMI: 29.3 Referring Provider: MICHELLE CHIN Mailcode: Sleep history: The patient is a 54 year old female with a history of witnessed apneas, waking up with dry mouth or sore throat, an urge to move the legs, excessive daytime sleepiness, and fatigue. The patient is legally blind. The patient endorses being a habitual supine and side sleeper. Pertinent past medical history: Coronary artery disease, GERD, Hyperlipidemia, Hypertension Medications: Norvasc, Aspirin, Lipitor, Biotin, Wellbutrin, Evoxac, Flexeril, Mucinex, Lexapro, Estradiol, Flonase, Neurontin, Motrin, Probiotic, Zestoretic, Mobic, Nasanex, Prilosec, Prometrium, Desyrel Sleep procedure: PSG 4 or more [facility] ([id number]) Procedure: The study was attended continuously by a fiber technologist. The monitored parameters included: left (E1-M2) and right (E2-M1) EOG, frontal (F3-M2 and F4-M1), central (C3-M2 and C4-M1) and occipital (O1-M2 and O2-M1) EEG, mental and submental EMG, left and right anterior tibialis single ECG waveform, snoring, continuous airflow with thermistor, nasal pressure transducer, chest and abdominal effort, oxygen saturation, ETCO2 and body position via video monitoring. Hypopnea definition: The peak signal excursions drop by >= 30% of pre-event baseline using nasal pressure (diagnostic study), PAP device flow (titration study) or an alternative hypopnea sensor (diagnostic study). The duration of the >= 30% drop in signal excursion is >= 10 seconds. There is a greater than or equal to 4% oxygen desaturation from pre-event baseline. Respiratory Effort Related Arousal (RERA) definition: 10 seconds characterized by increasing respiratory effort or by flattening of the nasal pressure or PAP flow waveform leading to arousal from sleep when the sequence of breaths does not meet criteria for an apnea or hypopnea. Respiratory Disturbance Index (RDI) definition: RDI = (#apneas + #hypopneas + #RERAs) x 60 / TST. If AHI is 0.0, then RDI = RERA index. SLEEP ARCHITECTURE: The study started at 23:00:32 and ended at 05:46:05. Total sleep time (TST) was 324 minutes resulting in a sleep efficiency of 80.0% (total recording time (TRT) = 405 m). There were 21 awakenings with a total time awake after sleep onset of 33.0 minutes. The sleep latency was 48.0 minutes and the REM latency was 287 minutes. The patient spent 86.4% of sleep time in the supine position. The sleep stage percentages were 6.9% stage N1, 81.8% stage N2, 0.2% stage N3 and 11.1% REM sleep. There were 223 arousals, resulting in an arousal index of 41.2. There were 76 stage shifts. RESPIRATORY DATA: Snoring was noted. There were 160 respiratory events consisting of 39 apneas [37 obstructive (94.9%), 0 mixed (0.0%), and 2 central (5.1%)], 63 hypopneas and 58 RERAs. The apnea-hypopnea index (AHI) was 18.9 and the central-apnea index (DIAMOND) was 0.4. The respiratory effort related arousal (RERA) index was 10.7. The respiratory disturbance index (RDI) was 29.6. The mean oxygen saturation during the study was 95.0%, with a minimum oxygen saturation of 83.0%. The patient spent 1.4% (4.4 min) of sleep time with an oxygen saturation below 90% and 0.8% (2.6 min) of sleep time with an oxygen saturation at or below 88%. The wake supine end-tidal CO2 (ETCO2) value was 35 mmHg. The maximum ETCO2 was 50 mmHg. The patient spent 0.0% (0.0 minutes) of sleep time with an ETCO2 above 50 mmHg and 0.0% (0.0 minutes) above 55 mmHg. Tobin-Mendez/Periodic Breathing was not present. Supplemental oxygen was not administered. REM-Time REM AHI NREM-Time NREM AHI Total-Time Total RDI Total AHI Supine 36.0 m 13.3 244.5 m 23.1 280.5 m 32.7 21.8 Off-Supine 0.0 m -- 44.0 m 0.0 44.0 m 9.5 0.0 Total 36.0 m 13.3 288.5 m 19.5 324.5 m 29.6 18.9 MOVEMENT DATA: No abnormal behavior was noted. There were 36 periodic limb movements during sleep, resulting in a PLM-index of 6.7. Of these, 18 movements were associated with arousals, resulting in a PLM-arousal index of 3.3. ECG DATA: The average heart rate during sleep was 83 beats per minute, with a range of 60 to 104. During wake, the heart rate ranged from 67 to 108 beats per minute. No arrhythmias were noted OTHER NOTABLE FINDINGS: None. ICSD DIAGNOSIS: Obstructive Sleep Apnea Syndrome [G47.33] IMPRESSION/RECOMMENDATI ONS: 1. Moderate obstructive sleep apnea exacerbated to moderate supine sleep with AHI values of 18.9 and 21.8, respectively. Respiratory events were associated with oxygen desaturations to a jose of 83%. 2. Moderately severe snoring. 3. Frequent periodic limb movements not resulting in arousals from s (more content not included)... Normal [facility] 25(OH)D3 [facility] 2024 25-hydroxyvitamin D3 [Mass/Vol] 42.9 ng/mL Normal 31.0-80.0 [facility] Comment on above: Order Comment: Speci men Type: BLOOD SPECIMEN Ordering Facility: [facility] Address: [address] [place] [address] [place] [address] Result Comment: Clas sification of 25 [place] Vitamin D status: Deficiency/Insufficiency: < or = 30 ng/ml. Sufficiency/Optimal Levels: 31-80 ng/mL Toxicity: > 100 ng/mL. Test performed by chemiluminescent immunoassay. Performed By: #### 1 989-3 #### [facility] CLIA [id number] [address] [place] [address] [place] CBC W Auto Differential pane l (Bld)on 11-03-2024 Basophils (Bld) [#/Vol] 0.03 10*3/uL [facility] Basophils/100 WBC (Bld) 0.6 % [facility] Differential cell count method Nom (Bld) Auto [facility] Eosinophils (Bld) [#/Vol] 0.2 10*3/uL [facility] Eosinophils/100 WBC (Bld) 3.7 % [facility] Erythrocyte distribution width (RBC) [Ratio] 14 % 11.5 - 15.0 % [facility] Hematocrit (Bld) [Volume fraction] 37.9 % 36.0 - 46.0 % [facility] Hemoglobin (Bld) [Mass/Vol] 12 g/dL 11.5 - 15.5 g/dL [facility] Immature granulocytes (Bld) [#/Vol] [facility] Immature granulocytes/100 WBC (Bld) 0.2 % [facility] Lymphocytes (Bld) [#/Vol] 1.2 10*3/uL [facility] Lymphocytes/100 WBC (Bld) 22.2 % [facility] MCH (RBC) [Entitic mass] 29.3 pg 26.0 - 34.0 pg [facility] MCHC (RBC) [Mass/Vol] 31.7 g/dL 30.5 - 36.0 g/dL [facility] MCV (RBC) [Entitic vol] 92.4 fL 80.0 - 100.0 fL [facility] Monocytes (Bld) [#/Vol] 0.65 10*3/uL [facility] Monocytes/100 WBC (Bld) 12 % [facility] Neutrophils (Bld) [#/Vol] 3.31 10*3/uL [facility] Neutrophils/100 WBC (Bld) 61.3 % [facility] Nucleated RBC (Bld) [#/Vol] [facility] Nucleated RBC/100 WBC (Bld) [Ratio] 0 % /100 WBC [facility] Platelet mean volume (Bld) [Entitic vol] 11 fL 9.0 - 12.7 fL [facility] Platelets (Bld) [#/Vol] 334 10*3/uL [facility] RBC (Bld) [#/Vol] 4.1 10*6/uL 3.90 - 5.2 0 m/uL [facility] WBC (Bld) [#/Vol] 5.4 10*3/uL [facility] Basophils (Bld) [#/Vol] 0.03 10*3/uL Normal <0.11 [facility] Comment on above: Order Comment: Speci men Type: BLOOD SPECIMEN Ordering Facility: [facility] Address: [address] [place] [address] Performed By: #### 5 7021-8 #### [facility] CLIA [id number] [address] [place] Basophils/100 WBC (Bld) 0.6 % Normal [facility] Comment on above: Order Comment: Speci men Type: BLOOD SPECIMEN Ordering Facility: [facility] Address: [address] [place] [address] Performed By: #### 5 7021-8 #### [facility] CLIA [id number] [address] [place] Differential cell count method Nom (Bld) Auto Normal [facility] Comment on above: Order Comment: Speci men Type: BLOOD SPECIMEN Ordering Facility: [facility] Address: [address] [place] [address] Performed By: #### 5 7021-8 #### [facility] CLIA [id number] [address] [place] [address] [place] Eosinophils (Bld) [#/Vol] 0.20 10*3/uL Normal <0.46 [facility] Comment on above: Order Comment: Speci men Type: BLOOD SPECIMEN Ordering Facility: [facility] Address: [address] [place] [address] Performed By: #### 5 7021-8 #### [facility] CLIA [id number] [address] [place] Eosinophils/100 WBC (Bld) 3.7 % Normal [facility] Comment on above: Order Comment: Speci men Type: BLOOD SPECIMEN Ordering Facility: [facility] Address: [address] [place] [address] Performed By: #### 5 7021-8 #### [facility] CLIA [id number] [address] [place] Erythrocyte distribution width (RBC) [Ratio] 14.0 % Normal 11.5-15.0 [facility] Comment on above: Order Comment: Speci men Type: BLOOD SPECIMEN Ordering Facility: [facility] Address: [address] [place] [address] Performed By: #### 5 7021-8 #### [facility] CLIA [id number] [address] [place] Hematocrit (Bld) [Volume fraction] 37.9 % Normal 36.0-46.0 [facility] Comment on above: Order Comment: Speci men Type: BLOOD SPECIMEN Ordering Facility: [facility] Address: [address] [place] [address] Performed By: #### 5 7021-8 #### [facility] CLIA [id number] [address] [place] Hemoglobin (Bld) [Mass/Vol] 12.0 g/dL Normal 11.5-15.5 [facility] Comment on above: Order Comment: Speci men Type: BLOOD SPECIMEN Ordering Facility: [facility] Address: [address] [place] [address] Performed By: #### 5 7021-8 #### [facility] CLIA [id number] [address] [place] Immature granulocytes (Bld) [#/Vol] 10*3/uL Normal <0.10 [facility] Comment on above: Order Comment: Speci men Type: BLOOD SPECIMEN Ordering Facility: [facility] Address: [address] [place] [address] Performed By: #### 5 7021-8 #### [facility] CLIA [id number] [address] Immature granulocytes/100 WBC (Bld) 0.2 % Normal [facility] Comment on above: Order Comment: Speci men Type: BLOOD SPECIMEN Ordering Facility: [facility] Address: [address] [place] [address] Performed By: #### 5 7021-8 #### [facility] CLIA [id number] [address] [place] Lymphocytes (Bld) [#/Vol] 1.20 10*3/uL Normal 1.00-4.00 [facility] Comment on above: Order Comment: Speci men Type: BLOOD SPECIMEN Ordering Facility: [facility] Address: [address] [place] [address] Performed By: #### 5 7021-8 #### [facility] CLIA [id number] [address] Lymphocytes/100 WBC (Bld) 22.2 % Normal [facility] Comment on above: Order Comment: Speci men Type: BLOOD SPECIMEN Ordering Facility: [facility] Address: [address] [place] [address] Performed By: #### 5 7021-8 #### [facility] CLIA [id number] [address] STATES [facility] MCH (RBC) [Entitic mass] 29.3 pg Normal 26.0-34.0 [facility] Comment on above: Order Comment: Speci men Type: BLOOD SPECIMEN Ordering Facility: [facility] Address: [address] [place] [address] Performed By: #### 5 7021-8 #### [facility] CLIA [id number] [address] MCHC (RBC) [Mass/Vol] 31.7 g/dL Normal 30.5-36.0 [facility] Comment on above: Order Comment: Speci men Type: BLOOD SPECIMEN Ordering Facility: [facility] Address: [address] [place] [address] Performed By: #### 5 7021-8 #### [facility] CLIA [id number] [address] [place] MCV (RBC) [Entitic vol] 92.4 fL Normal 80.0-100.0 [facility] Comment on above: Order Comment: Speci men Type: BLOOD SPECIMEN Ordering Facility: [facility] Address: [address] [place] [address] Performed By: #### 5 7021-8 #### [facility] CLIA [id number] [address] [place] Monocytes (Bld) [#/Vol] 0.65 10*3/uL Normal <0.87 [facility] Comment on above: Order Comment: Speci men Type: BLOOD SPECIMEN Ordering Facility: [facility] Address: [address] [place] [address] Performed By: #### 5 7021-8 #### [facility] CLIA [id number] [address] [place] Monocytes/100 WBC (Bld) 12.0 % Normal [facility] Comment on above: Order Comment: Speci men Type: BLOOD SPECIMEN Ordering Facility: [facility] Address: [address] [place] [address] Performed By: #### 5 7021-8 #### [facility] CLIA [id number] 1 [place] [address] [place] Neutrophils (Bld) [#/Vol] 3.31 10*3/uL Normal 1.45-7.50 [facility] Comment on above: Order Comment: Speci men Type: BLOOD SPECIMEN Ordering Facility: [facility] Address: [address] [place] [address] Performed By: #### 5 7021-8 #### [facility] CLIA [id number] [address] [place] Neutrophils/100 WBC (Bld) 61.3 % Normal [facility] Comment on above: Order Comment: Speci men Type: BLOOD SPECIMEN Ordering Facility: [facility] Address: [address] [place] [address] Performed By: #### 5 7021-8 #### [facility] CLIA [id number] [address] [place] Nucleated RBC (Bld) [#/Vol] 10*3/uL Normal <0.01 [facility] Comment on above: Order Comment: Speci men Type: BLOOD SPECIMEN Ordering Facility: [facility] Address: [address] [place] [address] Performed By: #### 5 7021-8 #### [facility] CLIA [id number] [address] [place] Nucleated RBC/100 WBC (Bld) [Ratio] 0.0 /100 WBC Normal [facility] Comment on above: Order Comment: Speci men Type: BLOOD SPECIMEN Ordering Facility: [facility] Address: [address] [place] [address] Performed By: #### 5 7021-8 #### [facility] CLIA [id number] 1 [place] [address] [place] Platelet mean volume (Bld) [Entitic vol] 11.0 fL Normal 9.0-12.7 [facility] Comment on above: Order Comment: Speci men Type: BLOOD SPECIMEN Ordering Facility: [facility] Address: [address] [place] [address] Performed By: #### 5 7021-8 #### [facility] CLIA [id number] 1 [place] [address] [place] Platelets (Bld) [#/Vol] 334 10*3/uL Normal 150-400 [facility] Comment on above: Order Comment: Speci men Type: BLOOD SPECIMEN Ordering Facility: [facility] Address: [address] [place] [address] Performed By: #### 5 7021-8 #### [facility] CLIA [id number] 1 [place] [address] [place] RBC (Bld) [#/Vol] 4.10 10*6/uL Normal 3.90-5.20 [facility] Comment on above: Order Comment: Speci men Type: BLOOD SPECIMEN Ordering Facility: [facility] Address: [address] [place] [address] Performed By: #### 5 7021-8 #### [facility] CLIA [id number] [address] [place] WBC (Bld) [#/Vol] 5.40 10*3/uL Normal 3.70-11.00 [facility] Comment on above: Order Comment: Speci men Type: BLOOD SPECIMEN Ordering Facility: [facility] Address: [address] [place] [address] Performed By: #### 5 7021-8 #### [facility] CLIA [id number] [address] OF [facility] CNOVon 11-03-2024 CNOV Office Visit (INTMWS ) ALLIE LYNN ([id number]) 1970 F Date Time Provider Department 11/03/24 2:00 PM IFEOMA DAVIS INTMWS During your visit today, we recorded the following information about you: Pulse Blood pressure Weight Height 98/minute 114/78 70.2 kg 1.549 m Ifeoma Davis MD 11/03/2024 5:33 PM Signed CC: Patient presents with: Recheck: 10/31/24 UA done at urgent care, always tired HPI Allie Lynn is a 53 year old female who presents today for 6-month follow-up. 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 Dr. Sparks is her local hazmat driver/glaucom a specialist that she sees every 3 months. States she has not had a bleed in her eye at a long time, but at the same time she states she wouldn't see it at this point. Slowly progressive loss of peripheral vision. Patient also reports that she has issues with calcified joints/arthritis. She has moved back to [place], so she can use the [employer] for going places, [employer]. She is engaged in a lot of activities, and is giving back to the community as much as she can in every way she can. She has a son in [place], and a brother near by. Her eyes are getting worse, but she does not want to use the cane because it would make her more limited. HPL: Reviewed test results with patient , takes medications regularly , does not report side effects. Conscious to avoid red meats, full fat dairy and its by products. Exercising 3 to 5 times a week. HTN: BP controlled today. Checks BP at home. Compliant with medications. Denies any chest pain, palpitations, SOB, swelling in the feet. Careful with diet to avoid salt, trying to eat more fruits and vegetables, exercises regularly She is extremely active in the community. Takes the [employer] bus to [place] [employer] every Saturday, as well as to her Bible studies throughout the week. States these activities are very important to her because it helps keep her mentally sharp. In regards to activities that are giving her increased difficulty-she can no longer see shade variations, so has issues taking care of the house and getting dressed and ready daily. Bradly stated that her boyfriend, Rg- could help her with day to day tasks, but he also works so he is not available full-time. Needs include home health aid, usp if applicable - says her boyfriend could help her for a portion of the time (as he does already in the mornings),Patient states that she is able to adequately bathe herself, but feels like someone needs to be present so she doesn't slip getting out of the shower, etc. Needs include assistance with organizing medications for the week, personal/self care (picking out clothes, getting ready for the day). Assistance with cleaning, food preparation, Assistance with paperwork for job and family services-- any and all other resources that could be Had worked with an OT previously through [facility] in [place] previously who assisted with various techniques and resources to help making ADLs easier, but states she hasn't continued to pursue this because it's never covered by insurance Pt reports that she's very much so independent and never wants to maru helpless or feel sorry for herself, but she's afraid that if her condition progresses any further without asking for some form of assistance, she will put herself in harm's way, attempting to perform tasks that she shouldn't be on her own. Pt is also requesting uric acid lab be ordered d/t issues with pain and swelling in hands. Patient reports feeling very tired in the morning when she wakes up, not feeling very rested and also sleepy during the daytime. She does have a headache sometimes in the morning when she wakes up. She has not been sleeping with anyone for the past few years so she is unclear whether she snores or not at nighttime but a few times she has caught herself gasping when she wakes up. 09/29/24: Finally broken up with her BF for 13 years, which was weighing on her. She knew it was coming, wanted to and it was also mutual but now she is feeling so sad, and down, a lot of it is grief about what she has been through and the toxicity. Feels like she has let her family and herself down and she has guilt , shame. She has not been able to sleep, despite having a fixed sleep and wake up times. She does not watch tv at bed time. Is taking trazodone but that has not been helping her much. 10/12/24: she notes not feeling well today, Her mouth is really dry. She feels hung over with the increased trazodone. Noticed that her memory is getting worse. She still does not feel ove (more content not included)... Normal [facility] Ferritin SerPl-mCncon 2024 Ferritin [Mass/Vol] 29.7 ng/mL Normal 14.7-205.1 [facility] Comment on above: Order Comment: Speci men Type: BLOOD SPECIMEN Ordering Facility: [facility] Address: [address] [place] [address] Performed By: #### 2 276-4, 3024-7, 57655-8, 3016-3 #### [facility] CLIA [id number] [address] [place] Iron and Iron binding capaci ty panelon 11-03-2024 Iron [Mass/Vol] 93 ug/dL Normal 41-186 [facility] Comment on above: Order Comment: Speci men Type: BLOOD SPECIMEN Ordering Facility: [facility] Address: [address] [place] [address] Performed By: #### 2 276-4, 3024-7, 74571-2, 3016-3 #### [facility] CLIA [id number] [address] [place] [address] [place] Iron binding capacity [Mass/Vol] 384 ug/dL Normal 232-386 [facility] Comment on above: Order Comment: Speci men Type: BLOOD SPECIMEN Ordering Facility: [facility] Address: [address] [place] [address] Performed By: #### 2 276-4, 3024-7, 79323-0, 6-3 #### [facility] CLIA [id number] [address] [place] [address] [place] Iron saturation [Mass fraction] 24.2 % Normal 15.0-57.0 [facility] Comment on above: Order Comment: Speci men Type: BLOOD SPECIMEN Ordering Facility: [facility] Address: [address] [place] [address] Performed By: #### 2 276-4, 3024-7, 34012-1, 3016-3 #### [facility] CLIA [id number] [address] [place] T4 Free SerPl-mCncon 025 Free T4 [Mass/Vol] 0.9 ng/dL Normal 0.9-1.7 [facility] Comment on above: Order Comment: Speci men Type: BLOOD SPECIMEN Ordering Facility: [facility] Address: [address] [place] [address] Performed By: #### 2 276-4, 3024-7, 62321-8, 3016-3 #### [facility] CLIA [id number] [address] OF [facility] TSH SerPl-aCncon 11-03-2024 TSH Qn 0.745 m[IU]/L Normal 0.270-4.200 [facility] Comment on above: Order Comment: Speci men Type: BLOOD SPECIMEN Ordering Facility: [facility] Address: [address] [place] [address] Performed By: #### 2 276-4, 3024-7, 96439-1, 3016-3 #### [facility] CLIA [id number] [address] OF [facility] Vit B12 SerPl-mCncon 025 Cobalamin (Vitamin B12) [Mass/Vol] pg/mL High 232-1245 [facility] Comment on above: Order Comment: Speci men Type: BLOOD SPECIMENOrdering Facility: [facility] Address: [address] [place] [address] Performed By: #### 2 132-9 ####[facility] [id number] [address] [place] Bacteria Ur Culton 5 Bacteria identified Cx Nom (U) ORGANISM ID: 1 <10,000 CFU/ml Lactose positive gram negative bacilli Insignificant colony count. No further workup. Normal [facility] Comment on above: Performed By: #### 6 30-4 ####[facility] [id number] [address] [place] CNOVon 10-31-2024 CNOV Office Visit (UCWSTR ) ALLIE LYNN ([id number]) 1970 F [place] Date Time Provider Department 10/31/24 1:00 PM CHANTAL PINO During your visit today, we recorded the following information about you: Temperature Pulse Respiration Blood pressure 97.1 degrees 97/minute 18/minute 141/88 Weight 69 kg Chantal Pino APRN.CNP 10/31/2024 1:22 PM Signed Subjective The history is provided by the patient. No manager language was used. HPI Allie Lynn is a 54 year old female who presents today for CC of lower abdominal pressure and frequency for one day. She has use AZO. She denies any fever, chills, or body aches, no vomiting. She denies any unusual vaginal discharge,itching or odor. BP 141/88 Pulse 97 Temp 36.2 ?C (97.1 ?F) Resp 18 Wt 69 kg (152 lb 1.9 oz) SpO2 99% BMI 28.74 kg/m? Social History Tobacco Use Smoking status: Never Smokeless tobacco: Never Vaping Use Vaping status: Never Used Substance Use Topics Alcohol use: No Drug use: No 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 Macular degeneration disease bilateral Mitral prolapse per Mitral valve disorders(424.0) Mitral valve stenosis and aortic valve stenosis Myalgia and myositis, unspecified PXE (pseudoxanthoma elasticum) Rheumatic fever 1995 Rheumatic heart disease, unspecified Tubular adenoma of colon Unspecified essential hypertension I have confirmed and edited as necessary, the [facility] Review of Systems Constitutional: Negative for chills and fever. Gastrointestinal: Positive for abdominal pain (pressure). Genitourinary: Positive for urgency. Negative for dysuria, flank pain, frequency and hematuria. Objective Physical Exam Vitals and nursing note reviewed. Constitutional: Appearance: Normal appearance. Abdominal: General: Bowel sounds are normal. There is no abdominal bruit. Palpations: Abdomen is not rigid. There is no mass or pulsatile mass. Tenderness: There is no abdominal tenderness. There is no guarding or rebound. Negative signs include Walters's sign and McBurney's sign. Neurological: Mental Status: She is alert and oriented to person, place, and time. Psychiatric: Mood and Affect: Affect normal. ASSESSMENT/PLAN: 1. Dysuria - ICD9: 788.1, ICD10: R30.0 (primary diagnosis) acute - UA positive for alexandra esterase, hematuria, proteinuria, and nitrates - Send urine for culture - Begin treatment with keflex for 7 days - Patient education for prevention given - BACTERIAL CULTURE, URINE - BACTERIAL CULTURE, URINE 2. Acute lower UTI - ICD9: 599.0, ICD10: N39.0 Culture sent, only call if need to change antibiotic. Diagnosis and treatment plan were discussed and questions were answered to the patient's satisfaction. Pt acknowledged understanding of concepts and follow up plan. Specific signs and symptoms that would indicate the need for higher level of care were discussed in detail warranting prompt ER evaluation. RAYMUNDO Zamudio Tonya, APRN.CNP 10/31/2024 1:21 PM Signed Keflex for 7 days Tylenol/ibuprofen as needed for discomfort AZO otc Increase hydration Will send urine for culture, if we need to change antibiotic we will call, if you do not hear from us, take all the medication as ordered. -Follow up with PCP or return to clinic if symptoms not improving in 3 days or if you develop any new (or worsening) symptoms such as fever, chills or back pain go to ER. Allergies As of Date: 10/31/2024 Noted Allergy Reaction ULTRAM (TRAMADOL HCL) 03/12/2006 11 - Vomiting DARVOCET A500 (PROPOXYPHENE N-GABRIEL*04/28/2012 1 - Mental Status Change HYDROCODONE BITARTRATE 10/19/2017 9 - Itching NITROFURANTOIN 03/05/2020 14 - Other: See Comments Comments: Loss of conciousness OPIOIDS - MORPHINE ANALOGUES 03/05/2020 9 - Itching PROPOXYPHENE 03/05/2020 14 - Other: See Comments Comments: Hallucinations TRAMADOL 03/05/2020 14 - Other: See Comments Comments: Loss of conciousness VICODIN (HYDROCODONE-ACETAMINOP HE*04/28/2012 9 - Itching Date Reviewed: 10/31/2024 Reviewed by: Chantal Pino APRN.HYDROGENATION STILL OPERATOR - Fully Assessed Reason for Visit: Urinary Problem [252] Cmt: Pressure x 1 day Primary Visit Diagnosis:Dysuria [R30.0] Other Visit Diagnosis:Acute lower UTI [N39.0] Order(s):BACTERIAL CULTURE, URINE [SQURCUL] Order #: [id number] BACTERIAL CULTURE, URINE [SQURCUL] Order #: [id number]. #:[id number] UA DIP, URINE (POC) [[id number]] Order #: [id number]. #:[id number] cephALEXin (KEFLEX) 500 mg capsuleTake 1 capsule by mouth two times a day for 5 days.Disp: 10 capsul (more content not included)... Normal [facility] UA DIP, URINE (POC)on 2024 BILIRUBIN UA (POCT) Small Abnormal Negative [facility] CLARITY UA (POCT) Clear [facility] COLOR UA (POCT) Red [facility] GLUCOSE UA (POCT) 100 mg/dL Abnormal Negative [facility] Hemoglobin Ql (U) Large Abnormal Negative [facility] Interpretation and review of laboratory results Abnormal [facility] KETONE UA (POCT) Trace Negative mg/dL [facility] LEUKOCYTES UA (POCT) Large Abnormal Negative [facility] NITRITE UA (POCT) Positive Abnormal Negative [facility] PH UA (POCT) 6 4.5 - 8.0 [facility] Protein Ql (U) >=300 Abnormal Negative mg/dL [facility] SPECIFIC GRAVITY UA (POCT) 1.01 1.005 - 1.030 [facility] UROBILINOGEN UA (POCT) 2 Abnormal Normal E.U./dL [facility] Location:[address], [place], [place], [id number] [place] [address] POINT OF CARE [facility] GEN[place]EVA SCREENINGon 10-21-2024 [place] SCREENING * * *Final Report* * * DATE OF EXAM: Oct 21 2024 2:30PM CLEMENTE 0581 - [place] SCREENING / PROCEDURE REASON: multiple diagnoses * * * * Physician Interpretation * * * * RESULT: [facility] [address] [id number] #[id number] - [place] SCREENING HISTORY: 54 year-old patient seen for screening and is asymptomatic in both breasts. Patient states no personal history of breast cancer. Patient states no personal history of ovarian cancer. COMPARISON STUDIES: The present examination has been compared to prior imaging studies dated 09/27/2022 (mammogram), 10/23/2022 (ultrasound), 10/23/2022 (mammogram) and 10/10/2023 (mammogram). MAMMOGRAM TECHNIQUE: The study was acquired using full field digital technology and interpreted from soft copy. MAMMOGRAM FINDINGS: There are scattered areas of fibroglandular density. No suspicious masses, calcifications or other abnormalities are seen in either breast. There are no significant interval changes. IMPRESSION: There is no mammographic evidence of malignancy in either breast. Routine screening mammogram is recommended. Annual mammogram will be due in 1 year. BI-RADS Category 1: Negative RISK: Based on the Tyrer-Cuzick (TC) risk assessment model, this patient has a 5.4% lifetime risk of developing breast cancer, meaning they are at average risk for developing breast cancer. However, this is only an estimate based on available history provided on the patient's questionnaire. We encourage all patients to talk with their providers about these results, further recommendations for managing breast health, and appropriate supplemental screening options if the patient has dense breast tissue. Interpreting Radiologist: Marnie Rosen M.D. Electronically signed on: 10/22/2024 Trade Marker: REMA Transcribe Date/Time: Oct 21 2024 2:00P Dictated by: MARNIE ROSEN MD This examination was interpreted and the report reviewed and electronically signed by: MARNIE ROSEN MD on Oct 22 2024 9:04AM EST [id number] Normal [facility] OCT MACULA CIRRUS OU (BOTH E YES)on 10-13-2024 [facility] Radiology Study observation (narrative) [facility] CNOVon 10-12-2024 CNOV Office Visit (INTMWS ) ALLIE LYNN ([id number]) 1970 F [place] Date Time Provider Department 10/12/24 3:00 PM IFEOMA DAVIS During your visit today, we recorded the following information about you: Temperature Pulse Respiration Blood pressure 96.9 degrees 118/minute 16/minute 106/63 Weight 71.5 kg Ifeoma Davis MD 10/12/2024 5:49 PM Addendum CC: Patient presents with: Follow Up For: Memory impairment HPI Allie Lynn is a 53 year old female who presents today for 6-month follow-up. 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 Dr. Sparks is her local hazmat driver/glaucom a specialist that she sees every 3 months. States she has not had a bleed in her eye at a long time, but at the same time she states she wouldn't see it at this point. Slowly progressive loss of peripheral vision. Patient also reports that she has issues with calcified joints/arthritis. She has moved back to [place], so she can use the [employer] for going places, [employer]. She is engaged in a lot of activities, and is giving back to the community as much as she can in every way she can. She has a son in [place], and a brother near by. Her eyes are getting worse, but she does not want to use the cane because it would make her more limited. HPL: Reviewed test results with patient , takes medications regularly , does not report side effects. Conscious to avoid red meats, full fat dairy and its by products. Exercising 3 to 5 times a week. HTN: BP controlled today. Checks BP at home. Compliant with medications. Denies any chest pain, palpitations, SOB, swelling in the feet. Careful with diet to avoid salt, trying to eat more fruits and vegetables, exercises regularly She is extremely active in the community. Takes the [employer] bus to [employer] [place] [employer] every Saturday, as well as to her Bible studies throughout the week. States these activities are very important to her because it helps keep her mentally sharp. In regards to activities that are giving her increased difficulty-she can no longer see shade variations, so has issues taking care of the house and getting dressed and ready daily. Bradly stated that her boyfriend, Rg- could help her with day to day tasks, but he also works so he is not available full-time. Needs include home health aid, usp if applicable - says her boyfriend could help her for a portion of the time (as he does already in the mornings),Patient states that she is able to adequately bathe herself, but feels like someone needs to be present so she doesn't slip getting out of the shower, etc. Needs include assistance with organizing medications for the week, personal/self care (picking out clothes, getting ready for the day). Assistance with cleaning, food preparation, Assistance with paperwork for job and family services-- any and all other resources that could be Had worked with an OT previously through [facility] in [place] previously who assisted with various techniques and resources to help making ADLs easier, but states she hasn't continued to pursue this because it's never covered by insurance Pt reports that she's very much so independent and never wants to maru helpless or feel sorry for herself, but she's afraid that if her condition progresses any further without asking for some form of assistance, she will put herself in harm's way, attempting to perform tasks that she shouldn't be on her own. Pt is also requesting uric acid lab be ordered d/t issues with pain and swelling in hands. Patient reports feeling very tired in the morning when she wakes up, not feeling very rested and also sleepy during the daytime. She does have a headache sometimes in the morning when she wakes up. She has not been sleeping with anyone for the past few years so she is unclear whether she snores or not at nighttime but a few times she has caught herself gasping when she wakes up. 09/29/24: Finally broken up with her BF for 13 years, which was weighing on her. She knew it was coming, wanted to and it was also mutual but now she is feeling so sad, and down, a lot of it is grief about what she has been through and the toxicity. Feels like she has let her family and herself down and she has guilt , shame. She has not been able to sleep, despite having a fixed sleep and wake up times. She does not watch tv at bed time. Is taking trazodone but that has not been helping her much. 10/12/24: she notes not feeling well today, Her mouth is really dry. She feels hung over with the increased trazodone. Noticed that her memory is getting worse. She st (more content not included)... Normal [facility] CNOVon 10-07-2024 CNOV Office Visit (INTMWS ) ALLIE LYNN ([id number]) 1970 F [place] Date Time Provider Department 10/07/24 6:20 PM CALLI DUVALL INTWS During your visit today, we recorded the following information about you: Temperature Pulse Respiration Blood pressure 98.2 degrees 103/minute 16/minute 124/62 Weight 73 kg Calli Duvall, MED PEDS.HYDROGENATION STILL OPERATOR 10/07/2024 7:02 PM Signed CC: Patient presents with: Memory Loss: Body aches, dry mouth HPI Allie Lynn is a 54 year old female who presents today for above. Patient has multiple concerns today including memory impairment, weakness, tremors, fatigue, and dry mouth. Most of these symptoms were discussed in great length with her PCP on 09/29. She was started on Wellbutrin for depression and Trazodone was increased for sleep issues. Dry mouth started after this but other symptoms have been chronic. She feels they may be slightly worse since 09/29, especially the memory impairment. She describes this as been forgetful and difficulty focusing. Denies acute confusion or disorientation. The only other change since visit with PCP is she broke up with her boyfriend of many years. Wondering about possible short term inpatient mental health treatment in future, does not feel she needs it at this time. Denies SI or HI, states I would never hurt myself. Also interested in home health aide which was also discussed with her PCP. Review of Systems See HPI 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 Macular degeneration disease bilateral Mitral prolapse per Mitral valve disorders(424.0) Mitral valve stenosis and aortic valve stenosis Myalgia and myositis, unspecified PXE (pseudoxanthoma elasticum) Rheumatic fever 1995 Rheumatic heart disease, unspecified Tubular adenoma of colon Unspecified essential hypertension PAST SURGICAL HISTORY Procedure Laterality Date ARTHROSCOPY KNEE DIAGNOSTIC W/WO SYNOVIAL BX SPX 1995 Arthroscopy, knee AVASTIN (BEVACIZUMAB) 1.25MG INTRAVITREAL INJECTION OD (RIGHT EYE) Right x 5 (03/12/17) DELIVERY ONLY 1988, 1991, 1993 , low cervical-x 3 COLONOSCOPY FLX DX W/COLLJ SPEC WHEN PFRMD 06/22/2019 Colonoscopy COLONOSCOPY SCREENING 05/30/[address] MAXILLOFAC/SINUS 06/29/2015 normal EGD W/O BRSH SPEC VARICIES INJ 05/30/2023 Small hiatal hernia, fundic gland polyp, mild chronic gastritis ENDOMETRIAL BX W/WO ENDOCERVIX BX W/O DILAT SPX 02/18/2012 ESOPHAGOGASTRODUODENOSC OPY TRANSORAL DIAGNOSTIC 02/03/2018 EGD INCISION OF EYE, TRABECULECTOMY Right 10/26/2021 LASER SELECTA 2 TRABECULOPLASTY Left 01/08/2020 LASER TRABECULOPLASTY OD (RIGHT EYE) Right 10/26/2021 PAST SURGICAL HISTORY OF Bilateral trigger finger release PAST SURGICAL HISTORY OF Left laser surgery to repair capsular rupture REMV CATARACT EXTRACAP,INSERT LENS Right 06/25/2022 REMV CATARACT EXTRACAP,INSERT LENS Left 11/15/2022 PEIOL OS and bleb revision (bleb reduction) x 11/15/2022- Dr. Cynthia Ramos M.D. S BALLOON,UTERINE ABLATION [id number] ALLERGIES Ultram [Tramadol Hcl], Darvocet A500 [Propoxyphene N-Acetaminophen], Hydrocodone Bitartrate, Nitrofurantoin, Opioids - Morphine Analogues, Propoxyphene, Tramadol, and Vicodin [Hydrocodone-Acetaminop hen] MEDICATIONS amLODIPine (NORVASC) 2.5 mg tablet Take 1 tablet by mouth once daily. buPROPion SR (WELLBUTRIN SR) 100 mg 12 hr tablet Take 1 tablet by mouth once daily. traZODone (DESYREL) 100 mg tablet Take 1 tablet by mouth daily at bedtime. estradiol (VIVELLE-DOT) 0.1 mg/24 hr patch Apply 1 Patch as directed two times a week. TWICE WEEKLY progesterone micronized (PROMETRIUM) 100 mg capsule Take 1 capsule by mouth daily at bedtime. fluticasone (FLONASE) 50 mcg/actuation nasal spray Use 2 Sprays in each nostril once daily. Rinse mouth after use. gabapentin (NEURONTIN) 100 mg capsule Take 1 capsule by mouth daily at bedtime for 181 days. atorvastatin (LIPITOR) 40 mg tablet Take 1 tablet by mouth once daily. omeprazole (PRILOSEC) 20 mg capsule Take 1 capsule by mouth once daily. diphenhydrAMINE (BENADRYL) 25 mg capsule Take 1-2 capsules by mouth at bedtime as needed. lisinopril-hydroCHLOROt hiazide (ZESTORETIC) 10-12.5 mg per tablet Take 1 tablet by mouth once daily. meloxicam (MOBIC) 15 mg tablet Take 1 tablet by mouth once daily. cyclobenzaprine (FLEXERIL) 10 mg tablet Take 1 tablet by mouth two times a day as needed. cyanocobalamin, vitamin B-12, (VITAMIN B-12 ORAL) Take by mouth. loratadine (CLARITIN) 10 mg tablet Take 1 tablet by mouth once daily. (Patient not taking: Reported on 1 (more content not included)... Normal [facility] Cassi 10-07-2024 [facility] Telephone (SLEWST) ALLIE LYNN ([id number]) 1970 F [place] Date Time Provider Department 10/07/24 MICHELLE CHIN During your visit today, we recorded the following information about you: Dara Valdez RN 10/07/2024 10:58 AM Signed Patient calls and states that she had talked with provider about having another sleep study done do to issues with previous sleep study. Patient calling and asking about where she should get next one done? Patient would also like to get this scheduled. Please review and advise, BRITTANY Benson Rebecca, APRN.CNP 10/08/2024 12:55 PM Signed PSG ordered. Please assist pt in scheduling it at [facility]. Michelle Chin APRN.Jackie Monge MA 10/12/2024 3:28 PM Signed Patient at PCP appointment. Will have patient stop at discharge to schedule PSG. Jackie Freitas MA Allergies As of Date: 10/07/2024 Noted Allergy Reaction ULTRAM (TRAMADOL HCL) 03/12/2006 11 - Vomiting DARVOCET A500 (PROPOXYPHENE N-GABRIEL*04/28/2012 1 - Mental Status Change HYDROCODONE BITARTRATE 10/19/2017 9 - Itching NITROFURANTOIN 03/05/2020 14 - Other: See Comments Comments: Loss of conciousness OPIOIDS - MORPHINE ANALOGUES 03/05/2020 9 - Itching PROPOXYPHENE 03/05/2020 14 - Other: See Comments Comments: Hallucinations TRAMADOL 03/05/2020 14 - Other: See Comments Comments: Loss of conciousness VICODIN (HYDROCODONE-ACETAMINOP HE*04/28/2012 9 - Itching Date Reviewed: 10/07/2024 Reviewed by: Calli Duvall APRN.HYDROGENATION STILL OPERATOR - Fully Assessed Reason for Visit: Patient Question [3797] Primary Visit Diagnosis:Snoring [R06.83] Other Visit Diagnoses:Excessive daytime sleepiness [G47.19] Non-restorative sleep [G47.8] PLMD (periodic limb movement disorder) [G47.61] Primary hypertension [I10] Order(s):POLYSOMNOGRAM (PSG) [3683667] Order #: [id number] FUTURE Prescriptions as of 10/12/2024 - amLODIPine (NORVASC) 2.5 mg tablet Take 1 tablet by mouth once daily. - buPROPion SR (WELLBUTRIN SR) 100 mg 12 hr tablet Take 1 tablet by mouth once daily. - traZODone (DESYREL) 100 mg tablet Take 1 tablet by mouth daily at bedtime. - estradiol (VIVELLE-DOT) 0.1 mg/24 hr patch Apply 1 Patch as directed two times a week. TWICE WEEKLY - progesterone micronized (PROMETRIUM) 100 mg capsule Take 1 capsule by mouth daily at bedtime. - fluticasone (FLONASE) 50 mcg/actuation nasal spray Use 2 Sprays in each nostril once daily. Rinse mouth after use. - gabapentin (NEURONTIN) 100 mg capsule Take 1 capsule by mouth daily at bedtime for 181 days. - atorvastatin (LIPITOR) 40 mg tablet Take 1 tablet by mouth once daily. - omeprazole (PRILOSEC) 20 mg capsule Take 1 capsule by mouth once daily. - diphenhydrAMINE (BENADRYL) 25 mg capsule Take 1-2 capsules by mouth at bedtime as needed. - lisinopril-hydroCHLOROt hiazide (ZESTORETIC) 10-12.5 mg per tablet Take 1 tablet by mouth once daily. - meloxicam (MOBIC) 15 mg tablet Take 1 tablet by mouth once daily. - cyclobenzaprine (FLEXERIL) 10 mg tablet Take 1 tablet by mouth two times a day as needed. - cyanocobalamin, vitamin B-12, (VITAMIN B-12 ORAL) Take by mouth. - dextromethorphan-guaiFE Nesin (MUCINEX DM) 30-600 mg per tablet Take 1 tablet by mouth two times a day. - ibuprofen (MOTRIN) 800 mg tablet Take 1 tablet by mouth every 8 hours as needed for pain. Take with food. - mometasone (NASONEX) 50 mcg/actuation nasal spray USE 2 SPRAYS NASALLY ONCE DAILY. RINSE MOUTH AFTER USE. - L.acid/B.animalis,bifid um/FOS (PROBIOTIC COMPLEX ORAL) Take by mouth. - biotin/calcium carbonate (BIOTIN-CALCIUM ORAL) Take by mouth. - vitamin B complex (B COMPLEX-VITAMIN B12 ORAL) Take by mouth. - aspirin, enteric coated (ASPIR-LOW) 81 mg EC tablet Take 1 tablet by mouth once daily. 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 [facility] ALLIE [facility] ([id number]) 1970 F [place] Date Time Provider Department 10/07/24 IFEOMA DAVIS During your visit today, we recorded the following information about you: Starla Mckeon LPN 10/07/2024 3:56 PM Signed Pt called in today to report she is not feeling herself. For approx 2 weeks pt reports she is not walking straight, forgetting things. Not able to finish her sentences all the time. Pt reports she went thru a bad break up but does not feel this is the cause. Pt has dry mouth and feels like at ties her tongue is sticking to her mouth. Pt not sure if the new medications she was put on could be causing this. Wellbutrin or Amlodipine. Pt denies, chest pain, SOB, difficulty breathing, neck pain. Pt scheduled for apt today 10-07-24. Pt's provider/team not available, scheduled with other provider. Starla Mckeon LPN Allergies As of Date: 10/07/2024 Noted Allergy Reaction ULTRAM (TRAMADOL HCL) 03/12/2006 11 - Vomiting DARVOCET A500 (PROPOXYPHENE N-GABRIEL*04/28/2012 1 - Mental Status Change HYDROCODONE BITARTRATE 10/19/2017 9 - Itching NITROFURANTOIN 03/05/2020 14 - Other: See Comments Comments: Loss of conciousness OPIOIDS - MORPHINE ANALOGUES 03/05/2020 9 - Itching PROPOXYPHENE 03/05/2020 14 - Other: See Comments Comments: Hallucinations TRAMADOL 03/05/2020 14 - Other: See Comments Comments: Loss of conciousness VICODIN (HYDROCODONE-ACETAMINOP HE*04/28/2012 9 - Itching Date Reviewed: 09/29/2024 Reviewed by: Juju Kelly MA - Fully Assessed Reason for Visit: Future Appointment [256] Prescriptions as of 10/07/2024 - amLODIPine (NORVASC) 2.5 mg tablet Take 1 tablet by mouth once daily. - buPROPion SR (WELLBUTRIN SR) 100 mg 12 hr tablet Take 1 tablet by mouth once daily. - traZODone (DESYREL) 100 mg tablet Take 1 tablet by mouth daily at bedtime. - estradiol (VIVELLE-DOT) 0.1 mg/24 hr patch Apply 1 Patch as directed two times a week. TWICE WEEKLY - progesterone micronized (PROMETRIUM) 100 mg capsule Take 1 capsule by mouth daily at bedtime. - fluticasone (FLONASE) 50 mcg/actuation nasal spray Use 2 Sprays in each nostril once daily. Rinse mouth after use. - gabapentin (NEURONTIN) 100 mg capsule Take 1 capsule by mouth daily at bedtime for 181 days. - atorvastatin (LIPITOR) 40 mg tablet Take 1 tablet by mouth once daily. - omeprazole (PRILOSEC) 20 mg capsule Take 1 capsule by mouth once daily. - diphenhydrAMINE (BENADRYL) 25 mg capsule Take 1-2 capsules by mouth at bedtime as needed. - lisinopril-hydroCHLOROt hiazide (ZESTORETIC) 10-12.5 mg per tablet Take 1 tablet by mouth once daily. - meloxicam (MOBIC) 15 mg tablet Take 1 tablet by mouth once daily. - cyclobenzaprine (FLEXERIL) 10 mg tablet Take 1 tablet by mouth two times a day as needed. - cyanocobalamin, vitamin B-12, (VITAMIN B-12 ORAL) Take by mouth. - loratadine (CLARITIN) 10 mg tablet Take 1 tablet by mouth once daily. - dextromethorphan-guaiFE Nesin (MUCINEX DM) 30-600 mg per tablet Take 1 tablet by mouth two times a day. - ibuprofen (MOTRIN) 800 mg tablet Take 1 tablet by mouth every 8 hours as needed for pain. Take with food. - mometasone (NASONEX) 50 mcg/actuation nasal spray USE 2 SPRAYS NASALLY ONCE DAILY. RINSE MOUTH AFTER USE. - keTORolac (ACULAR) 0.5 % ophthalmic solution Use 1 Drop in the left eye four times daily. Use as needed for eye pain - L.acid/B.animalis,bifid um/FOS (PROBIOTIC COMPLEX ORAL) Take by mouth. - biotin/calcium carbonate (BIOTIN-CALCIUM ORAL) Take by mouth. - vitamin B complex (B COMPLEX-VITAMIN B12 ORAL) Take by mouth. - aspirin, enteric coated (ASPIR-LOW) 81 mg EC tablet Take 1 tablet by mouth once daily. 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 Normal [facility] CNOVon 09-29-2024 CNOV Office Visit (INTMWS ) ALLIE LYNN ([id number]) 1970 F [place] Date Time Provider Department 09/29/24 2:00 PM IFEOMA DAVIS INTMWS During your visit today, we recorded the following information about you: Pulse Respiration Blood pressure Weight 86/minute 16/minute 138/88 73 kg Ifeoma Davis MD 09/29/2024 5:40 PM Signed CC: Patient presents with: F/U 6 months HPI Allie Lynn is a 53 year old female who presents today for 6-month follow-up. 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 Dr. Sparks is her local hazmat driver/glaucom a specialist that she sees every 3 months. States she has not had a bleed in her eye at a long time, but at the same time she states she wouldn't see it at this point. Slowly progressive loss of peripheral vision. Patient also reports that she has issues with calcified joints/arthritis. She has moved back to [place], so she can use the [employer] for going places, [employer]. She is engaged in a lot of activities, and is giving back to the community as much as she can in every way she can. She has a son in [place], and a brother near by. Her eyes are getting worse, but she does not want to use the cane because it would make her more limited. HPL: Reviewed test results with patient , takes medications regularly , does not report side effects. Conscious to avoid red meats, full fat dairy and its by products. Exercising 3 to 5 times a week. HTN: BP controlled today. Checks BP at home. Compliant with medications. Denies any chest pain, palpitations, SOB, swelling in the feet. Careful with diet to avoid salt, trying to eat more fruits and vegetables, exercises regularly She is extremely active in the community. Takes the [employer] bus to [employer] every Saturday, as well as to her Bible studies throughout the week. States these activities are very important to her because it helps keep her mentally sharp. In regards to activities that are giving her increased difficulty-she can no longer see shade variations, so has issues taking care of the house and getting dressed and ready daily. Bradly stated that her boyfriend, Rg- could help her with day to day tasks, but he also works so he is not available full-time. Needs include home health aid, usp if applicable - says her boyfriend could help her for a portion of the time (as he does already in the mornings),Patient states that she is able to adequately bathe herself, but feels like someone needs to be present so she doesn't slip getting out of the shower, etc. Needs include assistance with organizing medications for the week, personal/self care (picking out clothes, getting ready for the day). Assistance with cleaning, food preparation, Assistance with paperwork for job and family services-- any and all other resources that could be Had worked with an OT previously through [facility] in [place] previously who assisted with various techniques and resources to help making ADLs easier, but states she hasn't continued to pursue this because it's never covered by insurance Pt reports that she's very much so independent and never wants to maru helpless or feel sorry for herself, but she's afraid that if her condition progresses any further without asking for some form of assistance, she will put herself in harm's way, attempting to perform tasks that she shouldn't be on her own. Pt is also requesting uric acid lab be ordered d/t issues with pain and swelling in hands. Patient reports feeling very tired in the morning when she wakes up, not feeling very rested and also sleepy during the daytime. She does have a headache sometimes in the morning when she wakes up. She has not been sleeping with anyone for the past few years so she is unclear whether she snores or not at nighttime but a few times she has caught herself gasping when she wakes up. 09/29/24: Finally broken up with her BF for 13 years, which was weighing on her. She knew it was coming, wanted to and it was also mutual but now she is feeling so sad, and down, a lot of it is grief about what she has been through and the toxicity. Feels like she has let her family and herself down and she has guilt , shame. She has not been able to sleep, despite having a fixed sleep and wake up times. She does not watch tv at bed time. Is taking trazodone but that has not been helping her much. REVIEW OF SYSTEMS See HPI All other systems negative. PAST MEDICAL HISTORY Diagnosis Date Abnormal EKG Anemia Angioid streaks Combined 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 cataract, left eye 04/03/2022 Coronary artery dise (more content not included)... Normal [facility] 09-25-2024 [facility] Telephone (SLEWST) AAMIRALLIE HOLLAND ([id number]) 1970 F [place] Date Time Provider Department 09/25/24 MICHELLE CHIN During your visit today, we recorded the following information about you: Michelle Chin APRN.DEBORAH 09/25/2024 4:10 PM Signed Please CALL pt and tell her I reviewed her case with Dr Jiménez. 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 If we better control the leg movements then that might make her sleep more refreshing. He recommends we try increasing gabapentin from 100 mg to 300 mg at --I will contact Dr Betancourt about that since he prescribes it. --Please recommend she avoid benedryl which can make the leg movements worse. --We can consider another sleep study with her trying to sleep on her back. If she wants to do that would she consider going to a [facility] sleep lab? Michelle Chin APRN.Letty Madrid LPN 09/25/2024 4:29 PM Signed TC to pt who had questions about flexeril, she has been taking it every night to see if it helps with the leg spasms. Wonders if she can still take this or if she will need to stop them. Is okay with increasing the gabapentin, uses [facility] in [place]. Aware we need to talk to Dr. Betancourt. Has upcoming appts with PCP and pain management. Is okay to do a sleep study using [facility] but is unable to travel out of town very far. JOLIE Taylor Rebecca, APRN.DEBORAH 09/25/2024 4:36 PM Signed Please print my note and I'll write a msg to Dr Betancourt, we can fax him, then we'll let her know. We could use [facility] lab. She can still take flexeril. Michelle Chin APRN.Letty Madrid LPN 09/28/2024 8:51 AM Signed Office note faxed per request. JOLIE Taylor Jessica, LPN 10/16/2024 2:28 PM Signed TC to Dr. Fox office, states did not receive fax. Sent again. Staff will make sure to speak with Dr. Fox. Letty Morales LPN Allergies As of Date: 09/25/2024 Noted Allergy Reaction ULTRAM (TRAMADOL HCL) 03/12/2006 11 - Vomiting DARVOCET A500 (PROPOXYPHENE N-GABRIEL*04/28/2012 1 - Mental Status Change HYDROCODONE BITARTRATE 10/19/2017 9 - Itching NITROFURANTOIN 03/05/2020 14 - Other: See Comments Comments: Loss of conciousness OPIOIDS - MORPHINE ANALOGUES 03/05/2020 9 - Itching PROPOXYPHENE 03/05/2020 14 - Other: See Comments Comments: Hallucinations TRAMADOL 03/05/2020 14 - Other: See Comments Comments: Loss of conciousness VICODIN (HYDROCODONE-ACETAMINOP HE*04/28/2012 9 - Itching Date Reviewed: 09/24/2024 Reviewed by: Mary Cochran LPN - Fully Assessed Reason for Visit: Manager Paper - Other [[id number]] Prescriptions as of 04/10/2025 - prednisoLONE acetate (PRED FORTE) 1 % ophthalmic suspension Use 1 drop in the left eye four times daily. - traZODone (DESYREL) 100 mg tablet Take 1 tablet by mouth daily at bedtime. - erythromycin (ROMYCIN) 5 mg/gram (0.5 %) ophthalmic ointment Use 1 application in the left eye three times a day. - meloxicam (MOBIC) 15 mg tablet Take 1 tablet by mouth once daily. - potassium chloride (K-TAB) 10 mEq tablet Take 1 tablet by mouth once daily. - escitalopram oxalate (LEXAPRO) 10 mg tablet Take 1 tablet by mouth once daily. - gabapentin (NEURONTIN) 100 mg capsule Take 1 capsule by mouth daily at bedtime for 181 days. - atorvastatin (LIPITOR) 40 mg tablet Take 1 tablet by mouth once daily. - zolpidem (AMBIEN) 5 mg tablet Take 1 tablet by mouth at bedtime as needed (for insomnia.) for up to 90 days. - SAW PALMETTO ORAL Take by mouth once daily. - MAGNESIUM ORAL Take by mouth once daily. - COLLAGEN MISC - docosahexaenoic acid/epa (FISH OIL ORAL) Take by mouth once daily. - amLODIPine (NORVASC) 2.5 mg tablet Take 1 tablet by mouth once daily. - cevimeline (EVOXAC) 30 mg capsule Take 1 capsule by mouth three times a day. - buPROPion SR (WELLBUTRIN SR) 100 mg 12 hr tablet Take 1 tablet by mouth once daily. - estradiol (VIVELLE-DOT) 0.1 mg/24 hr patch Apply 1 Patch as directed two times a week. TWICE WEEKLY - fluticasone (FLONASE) 50 mcg/actuation nasal spray Use 2 Sprays in each nostril once daily. Rinse mouth after use. - omeprazole (PRILOSEC) 20 mg capsule Take 1 capsule by mouth once daily. - lisinopril-hydroCHLOROt hiazide (ZESTORETIC) 10-12.5 mg per tablet Take 1 tablet by mouth once daily. - cyclobenzaprine (FLEXERIL) 10 mg tablet Take 1 tablet by mouth two times a day as needed. - cyanocobalamin, vitamin B-12, (VITAMIN B-12 ORAL) Take by mouth once daily. - L.acid/B.animalis,bifid um/FOS (PROBIOTIC COMPLEX ORAL) Take by mouth once daily. - biotin/calcium carbonate (BIOTIN-CALCIUM ORAL) Take by mouth. - vitamin B complex (B COMPLEX-VITAMIN B12 ORAL) Take by mouth once daily. - aspir (more content not included)... Normal [facility] CNOVon 09-24-2024 CNOV Office Visit (SLEWST ) ALLIE LYNN ([id number]) 1970 F [place] Date Time Provider Department 09/24/24 3:00 PM MICHELLE CHIN During your visit today, we recorded the following information about you: Pulse Blood pressure Weight 101/minute 122/81 72.7 kg Michelle Chin APRN.DEBORAH 09/25/2024 3:51 PM Addendum Addendum: I reviewed her case with Dr Jiménez. We looked at her [facility] sleep study report including hypnogram--Dr Jiménez believes she is having REM-related apneas and that her PLMs were under-scored. He recommends we try increasing gabapentin from 100 mg to 300 mg at HS--I will contact Dr Betancourt about that since he prescribes it. Will recommend she avoid benedryl. We can consider another PSG with encouraging supine sleep, could give ambien that night, would prefer [facility] sleep lab but she would require a stunt driver due to her blindness. Michelle Chin APRN.HYDROGENATION STILL OPERATOR [facility] New Patient Evaluation PATIENT NAME: Allie Lynn DATE OF SERVICE: September 24, 2024 CONSULTING PROVIDER: Dr Davis REASON FOR CONSULT: sends the patient for an opinion about DAYSI, blindness. My findings and recommendations will be transmitted electronically via shared medical record to the consulting provider. HPI: Allie Lynn is a 54 year old female. Sleep-related history: Sleep isn't refreshing, wakes up and feels like she didn't sleep at all. She is legally blind. She has PXE pseudoxanthoma elasticum. She sees colors when she closes her eyes to sleep--purple or neon green, due to scarring. She takes trazodone and cyclobenzaprine 30 min before bedtime. Sometimes takes benedryl. Also on gabapentin at HS. Had a PSG at [facility] -- didn't meet criteria for DAYSI using the 4% scoring rule that her insurer requires. Takes gabapentin 100 mg at bedtime for nerve pain in neck. Sees Pain Mgmt. Rarely takes percocet. Lives alone. 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 SLEEP-WAKE SCHEDULE Bedtime: 9-930 PM. Listens to a book. She does not have a hard time falling asleep. Wake time: 8-830 AM, without an alarm. After falling asleep: she does not usually wake up during the night. On weekends, she maintains the same sleep schedule. Average total sleep time (in a 24 hour period): 10 hours?, she isn't sure how long she sleeps. SLEEP-RELATED DETAILS Preferred sleep position: back Breathing disturbances and other behaviors during sleep: snoring. Bruxism: No GERD or aspiration: No Waking up with heart pounding or racing: No Anxiety or rumination: No She does not report having an urge to move the legs in the evening (when resting) that is accompanied or caused by uncomfortable and/or unpleasant sensations in the legs. She has been told that she has leg kicking during sleep. Takes cyclobenzaprine at bedtime for she thinks leg movements in her sleep. She denies any history of parasomnias. Excessive daytime sleepiness / fatigue is a problem. Excessive Daytime sleepiness/fatigue has been a problem for 5 years. There is no history of a viral illness or significant head injury prior to the start of daytime sleepiness. She does not report sleep paralysis but has had rare sleep-related hallucinations WAKE-RELATED DETAILS She does not work. She does have difficulty with memory (eg, why walked in a room) but not with concentration. She does not drive. She does not take naps. Might rest her eyes for 20 minutes per day -- needs to close her eyes, get them out of the light. She does drink 2 caffeinated beverages per day. She has gained 10 pounds since 6 mos. Patient Questionnaires Sleep Scores PAST TREATMENTS: None PRIOR SLEEP STUDIES: Remote sleep study in the , was told it looked like she was riding bicycle all night A Polysomnogram performed on 07/22/24 at [facility] revealed an AHI of 8.1 (3%) (her AHI using 4% scoring was 2.5); supine index of 12.3; REM index of 11, PLM index of 9.5, PLM arousal index of ?, and the oxygen saturation was below 88% for 0.1% of the study. Sleep efficiency 95%. There was a non-sustained run of wide complex tachycardia (6 beat). She spent 57% of the night supine, 43% of the night off-supine. 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 Macular degeneration disease bilateral Mitral prolapse per Mitral valve disorders(424.0) Mitral valve stenosis and aortic valve stenosis Myalgia and myositis, unspecified PXE (pseudoxanthoma elasticum) Rheumatic fever 1995 Rheumatic heart disease, unspecified Tubular adenoma of colon Unspecified essential hypertension (more content not included)... Normal [facility] CNOVon 09-15-2024 CNOV Office Visit (OBGYWM ) ALLIE LYNN ([id number]) 1970 F [place] Date Time Provider Department 09/15/24 10:00 AM DESTINEY MCKEON OBSARAHWClint During your visit today, we recorded the following information about you: Blood pressure Weight 118/66 71.7 kg Destiney Mckeon APRN.HYDROGENATION STILL OPERATOR 09/15/2024 10:57 AM Signed Allie Bustos Aamir is a 54 year old female who presents for problem visit review Prempro medication for weight gain, fatigue, low libido. HPI: Patient presents today with questions about HRT and wondering if there is something different to help with issues listed above. She has been on the Prempro for a number of years. Menopause symptoms are well-controlled at this time, states some hot flashes randomly. OB History T0 L3 SAB0 IAB0 Ectopic0 Multiple0 Live Births0 Network Project Manager History LMP: Ablation Age at Menarche: Age at First : Age at Menopause: Network Project Manager History Comments: Sexual Activity: Not Currently; Male Contraception: No contraception data on record 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 Macular degeneration disease bilateral Mitral prolapse per Mitral valve disorders(424.0) Mitral valve stenosis and aortic valve stenosis Myalgia and myositis, unspecified PXE (pseudoxanthoma elasticum) Rheumatic fever 1995 Rheumatic heart disease, unspecified Tubular adenoma of colon Unspecified essential hypertension PAST SURGICAL HISTORY Procedure Laterality Date ARTHROSCOPY KNEE DIAGNOSTIC W/WO SYNOVIAL BX SPX 1995 Arthroscopy, knee AVASTIN (BEVACIZUMAB) 1.25MG INTRAVITREAL INJECTION OD (RIGHT EYE) Right x 5 (03/12/17) DELIVERY ONLY 1988, 1991, 1993 , low cervical-x 3 COLONOSCOPY FLX DX W/COLLJ SPEC WHEN PFRMD 06/22/2019 Colonoscopy COLONOSCOPY SCREENING 05/30/[address] MAXILLOFAC/SINUS 06/29/2015 normal EGD W/O BRSH SPEC VARICIES INJ 05/30/2023 Small hiatal hernia, fundic gland polyp, mild chronic gastritis ENDOMETRIAL BX W/WO ENDOCERVIX BX W/O DILAT SPX 02/18/2012 ESOPHAGOGASTRODUODENOSC OPY TRANSORAL DIAGNOSTIC 02/03/2018 EGD INCISION OF EYE, TRABECULECTOMY Right 10/26/2021 LASER SELECTA 2 TRABECULOPLASTY Left 01/08/2020 LASER TRABECULOPLASTY OD (RIGHT EYE) Right 10/26/2021 PAST SURGICAL HISTORY OF Bilateral trigger finger release PAST SURGICAL HISTORY OF Left laser surgery to repair capsular rupture REMV CATARACT EXTRACAP,INSERT LENS Right 06/25/2022 REMV CATARACT EXTRACAP,INSERT LENS Left 11/15/2022 PEIOL OS and bleb revision (bleb reduction) x 11/15/2022- Dr. Cynthia Ramos M.D. S BALLOON,UTERINE ABLATION [id number] FAMILY HISTORY Problem Relation Age of Onset Heart Father Age 61 Heart Maternal Grandfather Cancer Paternal Grandmother Breast Cancer Maternal Aunt 55 ovarian cancer Heart Son MS Ovarian cancer Maternal Grandmother Glaucoma No Family History Detached Retina No Family History Macular Degen No Family History Blindness No Family History Amblyopia No Family History Social History Tobacco Use Smoking status: Never Smokeless tobacco: Never Vaping Use Vaping status: Never Used Substance Use Topics Alcohol use: No Drug use: No Current Outpatient Medications Medication Sig fluticasone (FLONASE) 50 mcg/actuation nasal spray Use 2 Sprays in each nostril once daily. Rinse mouth after use. gabapentin (NEURONTIN) 100 mg capsule Take 1 capsule by mouth daily at bedtime for 181 days. atorvastatin (LIPITOR) 40 mg tablet Take 1 tablet by mouth once daily. cyclobenzaprine (FLEXERIL) 10 mg tablet Take 1 tablet by mouth two times a day as needed. diphenhydrAMINE (BENADRYL) 25 mg capsule Take 1-2 capsules by mouth at bedtime as needed. lisinopril-hydroCHLOROt hiazide (ZESTORETIC) 10-12.5 mg per tablet Take 1 tablet by mouth once daily. meloxicam (MOBIC) 15 mg tablet Take 1 tablet by mouth once daily. traZODone (DESYREL) 50 mg tablet Take 1 tablet by mouth daily at bedtime. cyclobenzaprine (FLEXERIL) 10 mg tablet Take 1 tablet by mouth two times a day as needed. cyanocobalamin, vitamin B-12, (VITAMIN B-12 ORAL) Take by mouth. loratadine (CLARITIN) 10 mg tablet Take 1 tablet by mouth once daily. dextromethorphan-guaiFE Nesin (MUCINEX DM) 30-600 mg per tablet Take 1 tablet by mouth two times a day. ibuprofen (MOTRIN) 800 mg tablet Take 1 tablet by mouth every 8 hours as needed for pain. Take with food. mometasone (NASONEX) 50 mcg/actuation nasal spray USE 2 SPRAYS NASALLY ONCE DAILY. RINSE MOUTH AFTER USE. keTORolac (ACULAR) 0.5 % ophthalmic solution Use 1 Drop in the left eye four times daily. Us (more content not included)... Normal [facility] Cassi 09-15-2024 DIANN Telephone (OBGYWM) ALLIE LYNN ([id number]) 1970 F [place] Date Time Provider Department 09/15/24 DESTINEY MCKEON During your visit today, we recorded the following information about you: Deangelo Stephens MA 09/15/2024 2:37 PM Signed Received PA request for Vivelle-Dot. PA submitted through test company and will await response from patients insurance. RISHI Rubalcava Morgan, MA 09/15/2024 2:47 PM Signed Patients Vivelle-Dot was approved. Deangelo Stephens MA Allergies As of Date: 09/15/2024 Noted Allergy Reaction ULTRAM (TRAMADOL HCL) 03/12/2006 11 - Vomiting DARVOCET A500 (PROPOXYPHENE N-GABRIEL*04/28/2012 1 - Mental Status Change HYDROCODONE BITARTRATE 10/19/2017 9 - Itching NITROFURANTOIN 03/05/2020 14 - Other: See Comments Comments: Loss of conciousness OPIOIDS - MORPHINE ANALOGUES 03/05/2020 9 - Itching PROPOXYPHENE 03/05/2020 14 - Other: See Comments Comments: Hallucinations TRAMADOL 03/05/2020 14 - Other: See Comments Comments: Loss of conciousness VICODIN (HYDROCODONE-ACETAMINOP HE*04/28/2012 9 - Itching Date Reviewed: 09/15/2024 Reviewed by: Lottie Mckeon LPN - Fully Assessed Reason for Visit: Insurance Authorization [[id number]] Prescriptions as of 09/15/2024 - estradiol (VIVELLE-DOT) 0.1 mg/24 hr patch Apply 1 Patch as directed two times a week. TWICE WEEKLY - progesterone micronized (PROMETRIUM) 100 mg capsule Take 1 capsule by mouth daily at bedtime. - fluticasone (FLONASE) 50 mcg/actuation nasal spray Use 2 Sprays in each nostril once daily. Rinse mouth after use. - gabapentin (NEURONTIN) 100 mg capsule Take 1 capsule by mouth daily at bedtime for 181 days. - atorvastatin (LIPITOR) 40 mg tablet Take 1 tablet by mouth once daily. - omeprazole (PRILOSEC) 20 mg capsule Take 1 capsule by mouth once daily. - cyclobenzaprine (FLEXERIL) 10 mg tablet Take 1 tablet by mouth two times a day as needed. - diphenhydrAMINE (BENADRYL) 25 mg capsule Take 1-2 capsules by mouth at bedtime as needed. - lisinopril-hydroCHLOROt hiazide (ZESTORETIC) 10-12.5 mg per tablet Take 1 tablet by mouth once daily. - meloxicam (MOBIC) 15 mg tablet Take 1 tablet by mouth once daily. - traZODone (DESYREL) 50 mg tablet Take 1 tablet by mouth daily at bedtime. - cyclobenzaprine (FLEXERIL) 10 mg tablet Take 1 tablet by mouth two times a day as needed. - cyanocobalamin, vitamin B-12, (VITAMIN B-12 ORAL) Take by mouth. - loratadine (CLARITIN) 10 mg tablet Take 1 tablet by mouth once daily. - dextromethorphan-guaiFE Nesin (MUCINEX DM) 30-600 mg per tablet Take 1 tablet by mouth two times a day. - ibuprofen (MOTRIN) 800 mg tablet Take 1 tablet by mouth every 8 hours as needed for pain. Take with food. - mometasone (NASONEX) 50 mcg/actuation nasal spray USE 2 SPRAYS NASALLY ONCE DAILY. RINSE MOUTH AFTER USE. - keTORolac (ACULAR) 0.5 % ophthalmic solution Use 1 Drop in the left eye four times daily. Use as needed for eye pain - L.acid/B.animalis,bifid um/FOS (PROBIOTIC COMPLEX ORAL) Take by mouth. - biotin/calcium carbonate (BIOTIN-CALCIUM ORAL) Take by mouth. - vitamin B complex (B COMPLEX-VITAMIN B12 ORAL) Take by mouth. - aspirin, enteric coated (ASPIR-LOW) 81 mg EC tablet Take 1 tablet by mouth once daily. 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] 04/15/2017 Mixed hyperlipidemia [E78.2] 04/15/2017 BPPV (benign paroxysmal positional vertigo) [H8*04/15/2017 Nausea [R11.0] 01/29/2018 Bilateral upper abdominal pain [R10.11, R10.12] 01/29/2018 Secondary glaucoma, indeterminate stage, 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01] 08/16/2022 Nuclear senile cataract of left eye [H25.12] 11/15/2022 11/15/2022 Primary open angle glaucoma (POAG) of left eye,*11/15/2022 12/29/2022 Encounter Status:Closed by DEANGELO STEPHENS on 09/15/24 [facility] 08-12-2024 DIANN Telephone (INTWS) AAMIR,ALLIE A ([id number]) 1970 F [place] Date Time Provider Department 08/12/24 IFEOMA DAVIS During your visit today, we recorded the following information about you: Emily Prieto LPN 08/12/2024 11:19 AM Signed Patient calling, states she was instructed to call in with 3 separate BP readings today. 9:17am BP 155/82 HR 89 10:25am BP 146/88 HR 91 11:12am BP 158/88 HR 102 David Anna APRN.HYDROGENATION STILL OPERATOR 08/12/2024 1:31 PM Signed That is higher then we would like to see. I do not see anything in the chart instructing her to do so. What is going on that she was asked to do this and by whom? Thank you David Anna APRN.Tori Yu MA 08/12/2024 2:09 PM Signed Left message for return call. Virginia Lorenz MA 08/12/2024 2:31 PM Signed Spoke with patient regarding below. After reviewing, it looks like patient was called on 08/10 by Patient Outreach and patient outreach MA instructed patient to call in readings. See 08/10/24 patient outreach. RISHI Ambrosio Joy, APRN.HYDROGENATION STILL OPERATOR 08/13/2024 7:10 AM Signed She has an upcoming appointment with Dr. Davis next week. Have her take a few blood pressures different days after sitting to rest for a good 5 minutes and can bring readings to appointment to review with her. Thank you David Anna APRN.HYDROGENATION STILL OPERATOR Allergies As of Date: 08/12/2024 Noted Allergy Reaction ULTRAM (TRAMADOL HCL) 03/12/2006 11 - Vomiting DARVOCET A500 (PROPOXYPHENE N-GABRIEL*04/28/2012 1 - Mental Status Change HYDROCODONE BITARTRATE 10/19/2017 9 - Itching NITROFURANTOIN 03/05/2020 14 - Other: See Comments Comments: Loss of conciousness OPIOIDS - MORPHINE ANALOGUES 03/05/2020 9 - Itching PROPOXYPHENE 03/05/2020 14 - Other: See Comments Comments: Hallucinations TRAMADOL 03/05/2020 14 - Other: See Comments Comments: Loss of conciousness VICODIN (HYDROCODONE-ACETAMINOP HE*04/28/2012 9 - Itching Date Reviewed: 07/08/2024 Reviewed by: Leila Willams LPN - Fully Assessed Reason for Visit: Patient Update [1234] Prescriptions as of 04/13/2025 - azithromycin (ZITHROMAX Z-JEANINE) 250 mg tablet 2 tablets by mouth first day then 1 tablet the next 4 days - guaiFENesin (MUCINEX) 600 mg 12 hr tablet Take 1 tablet by mouth two times a day. - benzonatate (TESSALON PERLE) 100 mg capsule Take 1 capsule by mouth three times a day as needed for cough for up to 7 days. - prednisoLONE acetate (PRED FORTE) 1 % ophthalmic suspension Use 1 drop in the left eye four times daily. - traZODone (DESYREL) 100 mg tablet Take 1 tablet by mouth daily at bedtime. - erythromycin (ROMYCIN) 5 mg/gram (0.5 %) ophthalmic ointment Use 1 application in the left eye three times a day. - meloxicam (MOBIC) 15 mg tablet Take 1 tablet by mouth once daily. - potassium chloride (K-TAB) 10 mEq tablet Take 1 tablet by mouth once daily. - escitalopram oxalate (LEXAPRO) 10 mg tablet Take 1 tablet by mouth once daily. - gabapentin (NEURONTIN) 100 mg capsule Take 1 capsule by mouth daily at bedtime for 181 days. - atorvastatin (LIPITOR) 40 mg tablet Take 1 tablet by mouth once daily. - zolpidem (AMBIEN) 5 mg tablet Take 1 tablet by mouth at bedtime as needed (for insomnia.) for up to 90 days. - SAW PALMETTO ORAL Take by mouth once daily. - MAGNESIUM ORAL Take by mouth once daily. - COLLAGEN MISC - docosahexaenoic acid/epa (FISH OIL ORAL) Take by mouth once daily. - amLODIPine (NORVASC) 2.5 mg tablet Take 1 tablet by mouth once daily. - cevimeline (EVOXAC) 30 mg capsule Take 1 capsule by mouth three times a day. - buPROPion SR (WELLBUTRIN SR) 100 mg 12 hr tablet Take 1 tablet by mouth once daily. - estradiol (VIVELLE-DOT) 0.1 mg/24 hr patch Apply 1 Patch as directed two times a week. TWICE WEEKLY - fluticasone (FLONASE) 50 mcg/actuation nasal spray Use 2 Sprays in each nostril once daily. Rinse mouth after use. - omeprazole (PRILOSEC) 20 mg capsule Take 1 capsule by mouth once daily. - lisinopril-hydroCHLOROt hiazide (ZESTORETIC) 10-12.5 mg per tablet Take 1 tablet by mouth once daily. - cyclobenzaprine (FLEXERIL) 10 mg tablet Take 1 tablet by mouth two times a day as needed. - cyanocobalamin, vitamin B-12, (VITAMIN B-12 ORAL) Take by mouth once daily. - L.acid/B.animalis,bifid um/FOS (PROBIOTIC COMPLEX ORAL) Take by mouth once daily. - biotin/calcium carbonate (BIOTIN-CALCIUM ORAL) Take by mouth. - vitamin B complex (B COMPLEX-VITAMIN B12 ORAL) Take by mouth once daily. - aspirin, enteric coated (ASPIR-LOW) 81 mg EC tablet Take 1 tablet by mouth once daily. 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 [facility] (PIPPAWS) ALLIE LYNN ([id number]) 1970 F Date Time Provider Department 07/27/24 [facility] During your visit today, we recorded the following information about you: Sarahi Dawkins LPN 07/27/2024 10:41 AM Signed Pt calls to report she had a sleep study done at [facility] and would like the results. Pt reports she cannot access the results. JOLIE Damico Joy, APRN.DEBORAH 07/27/2024 12:26 PM Signed We don't have the results either. Please get results then place on PCP desk to review. Thank you David Anna APRN.Virginia Ding MA 07/27/2024 1:06 PM Signed Printed from [facility] and placed on PCP desk. RISHI Ambrosio Chitra, MD 07/27/2024 6:34 PM Signed Please let patient know that she mild sleep apnea and she also likely has periodic limb movement disorder. The ideal treatment would be a CPAP machine. If she is willing to try it we will send her a CPAP machine and work with the [facility] clinic to help her to use it. For periodic limb movement disorders we could see if the treatment of sleep apnea would help with that symptom and if it does not we can revisit it in the future. Regards, Virginia Montanez MD, MA 07/28/2024 9:47 AM Signed Patient notified and verbalized understanding. Patient asking if PCP feels that she would be able to do this herself with her vision. Putting the mask on, etc. RISHI Ambrosio Chitra, MD 07/28/2024 4:50 PM Signed I understand her hesitancy. Because of her limitations I would like her to see sleep medicine as they might consider other methodologies like the inspire or dental appliances. Regards, Virginia Montanez MD, MA 07/29/2024 11:09 AM Signed Allie notified and verbalized understanding. PSS, please contact patient to schedule with Sleep Medicine. RISHI Ambrosio Michelle 07/29/2024 11:34 AM Signed 1st attempt LVM to schedule with sleep medicine Spring Peñaloza, BRITTANY 08/05/2024 10:35 AM Signed Pt called in and reports she wasn't able to get in to sleep medicine until 10/07/24. Pt is wanting to get CPAP machine before then. I told her she would need to call her [employer] and find out the DME they use and call us back. I said it looked like Dr Davis knew about the [facility] clinic to help her to use it as she is legally blind, so she would need to set that up. Pt states she is always so tired, and she doesn't want to wait until October to get it. Virginia Lorenz MA 08/05/2024 11:32 AM Signed Spoke with sleep/neuro nurse here in [facility]. [facility] clinic not at this location anymore. However, [employer] and [employer] can come to patients home and set up machine and instruct patient. Patient notified of the above and will contact insurance to inquire if they are in network. Pt will call back and let us know where to send the order. Virginia Lorenz MA Allergies As of Date: 07/27/2024 Noted Allergy Reaction ULTRAM (TRAMADOL HCL) 03/12/2006 11 - Vomiting DARVOCET A500 (PROPOXYPHENE N-GABRIEL*04/28/2012 1 - Mental Status Change HYDROCODONE BITARTRATE 10/19/2017 9 - Itching NITROFURANTOIN 03/05/2020 14 - Other: See Comments Comments: Loss of conciousness OPIOIDS - MORPHINE ANALOGUES 03/05/2020 9 - Itching PROPOXYPHENE 03/05/2020 14 - Other: See Comments Comments: Hallucinations TRAMADOL 03/05/2020 14 - Other: See Comments Comments: Loss of conciousness VICODIN (HYDROCODONE-ACETAMINOP HE*04/28/2012 9 - Itching Date Reviewed: 07/08/2024 Reviewed by: Leila Willams LPN - Fully Assessed Reason for Visit: Results [95] Primary Visit Diagnosis:DAYSI (obstructive sleep apnea) [G47.33] Other Visit Diagnoses:Blindness of both eyes [H54.3] 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 - atorvastatin (LIPITOR) 40 mg tablet Take 1 tablet by mouth once daily. - omeprazole (PRILOSEC) 20 mg capsule Take 1 capsule by mouth once daily. - cyclobenzaprine (FLEXERIL) 10 mg tablet Take 1 tablet by mouth two times a day as needed. - diphenhydrAMINE (BENADRYL) 25 mg capsule Take 1-2 capsules by mouth at bedtime as needed. - lisinopril-hydroCHLOROt hiazide (ZESTORETIC) 10-12.5 mg per tablet Take 1 tablet by mouth once daily. - meloxicam (MOBIC) 15 mg tablet Take 1 tablet by mouth once daily. - traZODone (DESYREL) 50 mg tablet Take 1 tablet by mouth daily at bedtime. - conjugated estrogens-medroxyPROGES TERone (PREMPRO) 0.625-2.5 mg per tablet Take 1 tablet by mouth once daily. - cyclobenzaprine (FLEXERIL) 10 mg tablet Take 1 tablet by mouth two times a day as needed. - cyanocobalamin, vitamin B-12, (VITAMIN B-12 ORA (more content not included)... Normal [facility] Cerv Spine 4 or 5 Viewson Cerv Spine 4 or 5 Views [facility] [address] [place] [address] Cerv Spine 4 or 5 Views MR#: [id number] Acct: [id number] Name: AAMIRALLIEDEANNA Rep #: [id number] : 1970 F 54 From: Henrik Cardona MD PCP: Dr. Ifeoma Davis MD Status: DEP [facility] Study: Cerv Spine 4 or 5 Views Date of Exam: 07/15/24 Exam# [id number] Ordering Dr: Allie Prakash [id number] STUDY: X-RAY - CERVICAL SPINE REASON FOR EXAM: Female, 54 years old. DDD TECHNIQUE: 5 view(s) of the cervical spine were obtained. COMPARISON: None FINDINGS: Normal anterior atlantoaxial articulation. Normal odontoid process. There is straightening of the normal cervical lordosis. 2 mm of anterolisthesis of C4 on C5. There is multi-level endplate spondylosis. There is multi-level degenerative disc disease with multilevel disc space narrowing. There is multi-level osseous foraminal stenosis. The soft tissue structures are unremarkable. RAD/Cerv Spine 4 or 5 Views IMPRESSION: Degenerative disc disease as described above. MRI may be useful. Electronically Signed: Henrik Cardona MD at 10:43 EST , CC: Allie Prakash; Dr. Ifeoma Davis MD Trade Marker: Signed [facility] 07-10-2024 [facility] Telephone ([employer]) ALLIE LYNN ([id number]) 1970 F Date Time Provider Department 07/10/24 IFEOMA DAVIS INTWS During your visit today, we recorded the following information about you: Angelica Arreola RN 07/10/2024 9:17 AM Signed [facility] Central Scheduling calling and states they have received a non-signed sleep study order for mutual patient. Requesting a signed order. Signed order faxed to [phone] as requested. BRITTANY De La Fuente Chitra, MD 07/10/2024 2:02 PM Signed Janet, Can you find out from Virginia how she does it? She uses our orders and it works. Thank you Regards, Janet Pastor MD, LPN 07/10/2024 2:15 PM Signed Called Aimee Penn Sleep clinical sociologist at [facility], stated should be able to use current order faxed. Stated would contact us if need something else. Janet Meza LPN July 10, 2024 2:15 PM SusanaJanet womackJOLIE 07/10/2024 2:40 PM Signed Sleep clinic [facility] sent fax needed office visit with some support for sleep study. Nothing mentioned at last office visit. Janet SusanaJOLIE July 10, 2024 2:40 PM Ifeoma Davis MD 07/10/2024 5:30 PM Signed I addend ed the note, please use the information there to for the sleep apnea testing. Regards, Virginia Montanez MD, MA 07/13/2024 11:57 AM Signed NOMI note faxed to [facility] as requested. Virginia Lorenz MA Allergies As of Date: 07/10/2024 Noted Allergy Reaction ULTRAM (TRAMADOL HCL) 03/12/2006 11 - Vomiting DARVOCET A500 (PROPOXYPHENE N-GABRIEL*04/28/2012 1 - Mental Status Change HYDROCODONE BITARTRATE 10/19/2017 9 - Itching NITROFURANTOIN 03/05/2020 14 - Other: See Comments Comments: Loss of conciousness OPIOIDS - MORPHINE ANALOGUES 03/05/2020 9 - Itching PROPOXYPHENE 03/05/2020 14 - Other: See Comments Comments: Hallucinations TRAMADOL 03/05/2020 14 - Other: See Comments Comments: Loss of conciousness VICODIN (HYDROCODONE-ACETAMINOP HE*04/28/2012 9 - Itching Date Reviewed: 07/08/2024 Reviewed by: Leila Willams LPN - Fully Assessed Reason for Visit: Fax Request [Other] Prescriptions as of 07/13/2024 - gabapentin (NEURONTIN) 100 mg capsule Take 1 capsule by mouth daily at bedtime for 181 days. - atorvastatin (LIPITOR) 40 mg tablet Take 1 tablet by mouth once daily. - omeprazole (PRILOSEC) 20 mg capsule Take 1 capsule by mouth once daily. - cyclobenzaprine (FLEXERIL) 10 mg tablet Take 1 tablet by mouth two times a day as needed. - diphenhydrAMINE (BENADRYL) 25 mg capsule Take 1-2 capsules by mouth at bedtime as needed. - lisinopril-hydroCHLOROt hiazide (ZESTORETIC) 10-12.5 mg per tablet Take 1 tablet by mouth once daily. - meloxicam (MOBIC) 15 mg tablet Take 1 tablet by mouth once daily. - traZODone (DESYREL) 50 mg tablet Take 1 tablet by mouth daily at bedtime. - conjugated estrogens-medroxyPROGES TERone (PREMPRO) 0.625-2.5 mg per tablet Take 1 tablet by mouth once daily. - cyclobenzaprine (FLEXERIL) 10 mg tablet Take 1 tablet by mouth two times a day as needed. - cyanocobalamin, vitamin B-12, (VITAMIN B-12 ORAL) Take by mouth. - loratadine (CLARITIN) 10 mg tablet Take 1 tablet by mouth once daily. - dextromethorphan-guaiFE Nesin (MUCINEX DM) 30-600 mg per tablet Take 1 tablet by mouth two times a day. - ibuprofen (MOTRIN) 800 mg tablet Take 1 tablet by mouth every 8 hours as needed for pain. Take with food. - mometasone (NASONEX) 50 mcg/actuation nasal spray USE 2 SPRAYS NASALLY ONCE DAILY. RINSE MOUTH AFTER USE. - keTORolac (ACULAR) 0.5 % ophthalmic solution Use 1 Drop in the left eye four times daily. Use as needed for eye pain - L.acid/B.animalis,bifid um/FOS (PROBIOTIC COMPLEX ORAL) Take by mouth. - biotin/calcium carbonate (BIOTIN-CALCIUM ORAL) Take by mouth. - vitamin B complex (B COMPLEX-VITAMIN B12 ORAL) Take by mouth. - aspirin, enteric coated (ASPIR-LOW) 81 mg EC tablet Take 1 tablet by mouth once daily. 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 Normal [facility] ALLIE LYNN ([id number]) 1970 F Date Time Provider Department 07/09/24 ADRIANA VIDAL [facility] During your visit today, we recorded the following information about you: Adriana Vidal APRN.HYDROGENATION STILL OPERATOR 07/09/2024 7:17 AM Signed Please notify that covid/flu/rsv testing negative. Continue with plan of care as discussed during visit. Judith Pena LPN 07/09/2024 7:30 AM Signed Patient given results and verbalized understanding of instructions given. Judith Pena LPN Allergies As of Date: 07/09/2024 Noted Allergy Reaction ULTRAM (TRAMADOL HCL) 03/12/2006 11 - Vomiting DARVOCET A500 (PROPOXYPHENE N-GABRIEL*04/28/2012 1 - Mental Status Change HYDROCODONE BITARTRATE 10/19/2017 9 - Itching NITROFURANTOIN 03/05/2020 14 - Other: See Comments Comments: Loss of conciousness OPIOIDS - MORPHINE ANALOGUES 03/05/2020 9 - Itching PROPOXYPHENE 03/05/2020 14 - Other: See Comments Comments: Hallucinations TRAMADOL 03/05/2020 14 - Other: See Comments Comments: Loss of conciousness VICODIN (HYDROCODONE-ACETAMINOP HE*04/28/2012 9 - Itching Date Reviewed: 07/08/2024 Reviewed by: Leila Willams LPN - Fully Assessed Reason for Visit: Results [95] Prescriptions as of 07/09/2024 - gabapentin (NEURONTIN) 100 mg capsule Take 1 capsule by mouth daily at bedtime for 181 days. - atorvastatin (LIPITOR) 40 mg tablet Take 1 tablet by mouth once daily. - omeprazole (PRILOSEC) 20 mg capsule Take 1 capsule by mouth once daily. - cyclobenzaprine (FLEXERIL) 10 mg tablet Take 1 tablet by mouth two times a day as needed. - diphenhydrAMINE (BENADRYL) 25 mg capsule Take 1-2 capsules by mouth at bedtime as needed. - lisinopril-hydroCHLOROt hiazide (ZESTORETIC) 10-12.5 mg per tablet Take 1 tablet by mouth once daily. - meloxicam (MOBIC) 15 mg tablet Take 1 tablet by mouth once daily. - traZODone (DESYREL) 50 mg tablet Take 1 tablet by mouth daily at bedtime. - conjugated estrogens-medroxyPROGES TERone (PREMPRO) 0.625-2.5 mg per tablet Take 1 tablet by mouth once daily. - cyclobenzaprine (FLEXERIL) 10 mg tablet Take 1 tablet by mouth two times a day as needed. - cyanocobalamin, vitamin B-12, (VITAMIN B-12 ORAL) Take by mouth. - loratadine (CLARITIN) 10 mg tablet Take 1 tablet by mouth once daily. - dextromethorphan-guaiFE Nesin (MUCINEX DM) 30-600 mg per tablet Take 1 tablet by mouth two times a day. - ibuprofen (MOTRIN) 800 mg tablet Take 1 tablet by mouth every 8 hours as needed for pain. Take with food. - mometasone (NASONEX) 50 mcg/actuation nasal spray USE 2 SPRAYS NASALLY ONCE DAILY. RINSE MOUTH AFTER USE. - keTORolac (ACULAR) 0.5 % ophthalmic solution Use 1 Drop in the left eye four times daily. Use as needed for eye pain - L.acid/B.animalis,bifid um/FOS (PROBIOTIC COMPLEX ORAL) Take by mouth. - biotin/calcium carbonate (BIOTIN-CALCIUM ORAL) Take by mouth. - vitamin B complex (B COMPLEX-VITAMIN B12 ORAL) Take by mouth. - aspirin, enteric coated (ASPIR-LOW) 81 mg EC tablet Take 1 tablet by mouth once daily. 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] 04/15/2017 Mixed hyperlipidemia [E78.2] 04/15/2017 BPPV (benign paroxysmal positional vertigo) [H8*04/15/2017 Nausea [R11.0] 01/29/2018 Bilateral upper abdominal pain [R10.11, R10.12] 01/29/2018 Secondary glaucoma, indeterminate stage, 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01] 08/16/2022 Nuclear senile cataract of left eye [H25.12] 11/15/2022 11/15/2022 Primary open angle glaucoma (POAG) of left eye,*11/15/2022 12/29/2022 Encounter Status:Closed by JUDITH PENA on 07/09/24 [facility] CNOVon 07-08-2024 CNOV Office Visit ([facility] ) ALLIE LYNN ([id number]) 1970 F LV Date Time Provider Department 07/08/24 5:45 PM LETTY SILVA [facility] During your visit today, we recorded the following information about you: Temperature Pulse Respiration Blood pressure 98.4 degrees 109/minute 18/minute 128/82 Weight 69.3 kg Lowell Kelly APRN.HYDROGENATION STILL OPERATOR 07/08/2024 5:47 PM Signed CC: Patient presents with: Headache: [place], bodyaches, fatigue x 3 days HPI: Allie Lynn is a 54 year old female who presents to the office with complaint of fatigue for a few days. Symptoms are staying the same. Associated symptoms includes headache, body aches, and fatigue. Denies nausea, vomiting , and diarrhea. Treatments tried include nothing so far. with no relief of symptoms. Sick contacts: unknown. History of asthma, frequent episodes of bronchitis, chronic bronchitis, bronchiectasis or COPD: No Smoker: No Seasonal/environmental allergies: No The ROS is otherwise negative. The patient's pmh, medications, allergies, and past visits are reviewed. PHYSICAL EXAM: BP 128/82 Pulse 109 Temp 36.9 ?C (98.4 ?F) (Tympanic) Resp 18 Wt 69.3 kg (152 lb 12.5 oz) SpO2 97% BMI 28.87 kg/m? General appearance: alert, cooperative, pleasant, in no acute distress Head: Normocephalic Eyes: EOM's intact, conjunctiva pink and moist, no icterus, sclera white, non-injected Ears: Right ear: External ear/canal- Normal, TM - clear with good landmarks. Left ear: External ear/canal- Normal, TM - clear with good landmarks Oropharynx:moist without lesions, No erythema, exudates or tonsillar hypertrophy. Uvula midline Heart: Negative. RRR without obvious murmur, gallop, or rubs. No ectopy. Lungs: clear to auscultation, without rales or wheeze, good air exchange 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 Macular degeneration disease bilateral Mitral prolapse per Mitral valve disorders(424.0) Mitral valve stenosis and aortic valve stenosis Myalgia and myositis, unspecified PXE (pseudoxanthoma elasticum) Rheumatic fever 1995 Rheumatic heart disease, unspecified Tubular adenoma of colon Unspecified essential hypertension PAST SURGICAL HISTORY Procedure Laterality Date ARTHROSCOPY KNEE DIAGNOSTIC W/WO SYNOVIAL BX SPX 1995 Arthroscopy, knee AVASTIN (BEVACIZUMAB) 1.25MG INTRAVITREAL INJECTION OD (RIGHT EYE) Right x 5 (03/12/17) DELIVERY ONLY 1988, 1991, 1993 , low cervical-x 3 COLONOSCOPY FLX DX W/COLLJ SPEC WHEN PFRMD 06/22/2019 Colonoscopy COLONOSCOPY SCREENING 05/30/[address] MAXILLOFAC/SINUS 06/29/2015 normal EGD W/O BRSH SPEC VARICIES INJ 05/30/2023 Small hiatal hernia, fundic gland polyp, mild chronic gastritis ENDOMETRIAL BX W/WO ENDOCERVIX BX W/O DILAT SPX 02/18/2012 ESOPHAGOGASTRODUODENOSC OPY TRANSORAL DIAGNOSTIC 02/03/2018 EGD INCISION OF EYE, TRABECULECTOMY Right 10/26/2021 LASER SELECTA 2 TRABECULOPLASTY Left 01/08/2020 LASER TRABECULOPLASTY OD (RIGHT EYE) Right 10/26/2021 PAST SURGICAL HISTORY OF Bilateral trigger finger release PAST SURGICAL HISTORY OF Left laser surgery to repair capsular rupture REMV CATARACT EXTRACAP,INSERT LENS Right 06/25/2022 REMV CATARACT EXTRACAP,INSERT LENS Left 11/15/2022 PEIOL OS and bleb revision (bleb reduction) x 11/15/2022- Dr. yCnthia Ramos M.D. S [place],UTERINE ABLATION [id number] ALLERGIES Ultram [Tramadol Hcl], Darvocet A500 [Propoxyphene N-Acetaminophen], Hydrocodone Bitartrate, Nitrofurantoin, Opioids - Morphine Analogues, Propoxyphene, Tramadol, and Vicodin [Hydrocodone-Acetaminop hen] MEDICATIONS gabapentin (NEURONTIN) 100 mg capsule Take 1 capsule by mouth daily at bedtime for 181 days. atorvastatin (LIPITOR) 40 mg tablet Take 1 tablet by mouth once daily. omeprazole (PRILOSEC) 20 mg capsule Take 1 capsule by mouth once daily. cyclobenzaprine (FLEXERIL) 10 mg tablet Take 1 tablet by mouth two times a day as needed. diphenhydrAMINE (BENADRYL) 25 mg capsule Take 1-2 capsules by mouth at bedtime as needed. lisinopril-hydroCHLOROt hiazide (ZESTORETIC) 10-12.5 mg per tablet Take 1 tablet by mouth once daily. meloxicam (MOBIC) 15 mg tablet Take 1 tablet by mouth once daily. traZODone (DESYREL) 50 mg tablet Take 1 tablet by mouth daily at bedtime. cyclobenzaprine (FLEXERIL) 10 mg tablet Take 1 tablet by mouth two times a day as needed. cyanocobalamin, vitamin B-12, (VITAMIN B-12 ORAL) Take by mouth. loratadine (CLARITIN) 10 mg tablet Take 1 tablet by mouth once daily. dextromethorphan-guaiFE Nesin (MUCINEX DM) 30-600 mg per tablet Mckay (more content not included)... Normal [facility] COVID AND INFLUENZA A/B AND RSV PCR, ROUTINEon 07-08-2024 SARS-CoV-2 (COVID-19) RNA SUKUMAR+probe Ql (Unsp spec) SARS-COV-2 (AGENT OF COVID-19) RNA: Not detected INFLUENZA A RNA: Not detected INFLUENZA B RNA: Not detected RESPIRATORY SYNCYTIAL VIRUS (RSV) RNA: Not detected Normal [facility] Comment on above: Performed By: #### 5 [id number] #### [facility] CLIA [id number] [address] [place] Cassi 07-07-2024 CNPN Telephone (FAMPST) AAMIRALLIE ([id number]) 1970 F Date Time Provider Department 07/07/24 [facility] During your visit today, we recorded the following information about you: Myra Isidro 07/07/2024 9:56 AM Signed Allie is calling Ifeoma Davis MD today to request a in home sleep study order to be placed, patient had last sleep study over 20 years ago and feels the need to have one again due to loss of vision and inability to feel rested when patient awakens. Patient mentions the quality of life is important and would like to continue with daily walks and tasks. Please call patient to advise the order is in and assist with next step in this process. Patient has been identified by name and birthdate. Duration of symptoms: ongoing Person calling: self Call patient at: at home [phone] (home) [phone] (cell) Was an appointment scheduled: No Closing statement: Results or non-symptom based questions: Thank you for calling [facility], your call will be returned within the next business day. Myra Deal [facility] Ifeoma Davis MD 07/07/2024 5:15 PM Signed Would she be willing for an inhouse test? Due to her blindness? Regards, Clint Bauer MD, RN 07/08/2024 9:52 AM Signed Phoned pt. No answer. No voicemail. Angelica Arreola, RN 07/08/2024 11:09 AM Signed Patient returned call. Patient states yes, she is willing to do an in house test. States she is willing to do whatever Dr. Davis thinks is best. Please call patient with response or any new test orders. BRITTANY De La Fuente Chitra, MD 07/09/2024 1:29 PM Signed Staff, Please co ordinate with her to get her sleep study done in the sleep lab. Yaya may be easier for her. Regards, Ifeoma Meza JanetJOLIE 07/09/2024 2:19 PM Signed Called and spoke to patient would prefer [facility] d/t legally blind. Faxed order and facesheet to [facility] sleep study Janet JOLIE Meza July 09, 2024 2:18 PM Allergies As of Date: 07/07/2024 Noted Allergy Reaction ULTRAM (TRAMADOL HCL) 03/12/2006 11 - Vomiting DARVOCET A500 (PROPOXYPHENE N-GABRIEL*04/28/2012 1 - Mental Status Change HYDROCODONE BITARTRATE 10/19/2017 9 - Itching NITROFURANTOIN 03/05/2020 14 - Other: See Comments Comments: Loss of conciousness OPIOIDS - MORPHINE ANALOGUES 03/05/2020 9 - Itching PROPOXYPHENE 03/05/2020 14 - Other: See Comments Comments: Hallucinations TRAMADOL 03/05/2020 14 - Other: See Comments Comments: Loss of conciousness VICODIN (HYDROCODONE-ACETAMINOP HE*04/28/2012 9 - Itching Date Reviewed: 04/11/2024 Reviewed by: Laura Lepe MA - Fully Assessed Reason for Visit: Orders [681] Primary Visit Diagnosis:DAYSI (obstructive sleep apnea) [G47.33] Order(s):POLYSOMNOGRAM (PSG) [[id number]] Order #: [id number] FUTURE Prescriptions as of 07/09/2024 - gabapentin (NEURONTIN) 100 mg capsule Take 1 capsule by mouth daily at bedtime for 181 days. - atorvastatin (LIPITOR) 40 mg tablet Take 1 tablet by mouth once daily. - omeprazole (PRILOSEC) 20 mg capsule Take 1 capsule by mouth once daily. - cyclobenzaprine (FLEXERIL) 10 mg tablet Take 1 tablet by mouth two times a day as needed. - diphenhydrAMINE (BENADRYL) 25 mg capsule Take 1-2 capsules by mouth at bedtime as needed. - lisinopril-hydroCHLOROt hiazide (ZESTORETIC) 10-12.5 mg per tablet Take 1 tablet by mouth once daily. - meloxicam (MOBIC) 15 mg tablet Take 1 tablet by mouth once daily. - traZODone (DESYREL) 50 mg tablet Take 1 tablet by mouth daily at bedtime. - conjugated estrogens-medroxyPROGES TERone (PREMPRO) 0.625-2.5 mg per tablet Take 1 tablet by mouth once daily. - cyclobenzaprine (FLEXERIL) 10 mg tablet Take 1 tablet by mouth two times a day as needed. - cyanocobalamin, vitamin B-12, (VITAMIN B-12 ORAL) Take by mouth. - loratadine (CLARITIN) 10 mg tablet Take 1 tablet by mouth once daily. - dextromethorphan-guaiFE Nesin (MUCINEX DM) 30-600 mg per tablet Take 1 tablet by mouth two times a day. - ibuprofen (MOTRIN) 800 mg tablet Take 1 tablet by mouth every 8 hours as needed for pain. Take with food. - mometasone (NASONEX) 50 mcg/actuation nasal spray USE 2 SPRAYS NASALLY ONCE DAILY. RINSE MOUTH AFTER USE. - keTORolac (ACULAR) 0.5 % ophthalmic solution Use 1 Drop in the left eye four times daily. Use as needed for eye pain - L.acid/B.animalis,bifid um/FOS (PROBIOTIC COMPLEX ORAL) Take by mouth. - biotin/calcium carbonate (BIOTIN-CALCIUM ORAL) Take by mouth. - vitamin B complex (B COMPLEX-VITAMIN B12 ORAL) Take by mouth. - aspirin, enteric coated (ASPIR-LOW) 81 mg EC tablet Take 1 tablet by mouth once daily. Meds Comments as of 09/05/2021: 09/05/21 The medications are managed by this patient by: PATIENT ALMA DELIA Rosario Problem List As Of Date 07/07/2024 Noted Resolved PATELLAR TENDINITIS [M76.50 (more content not included)... Normal [facility] US CAROTID ARTERIES MARYAN VAS LABon 06-04-2024 CAROTID ARTERIES [facility] LAB Non-Invasive Vascular Laboratory [facility] Carotid Duplex Bilateral/Complete Date of service/time: 06/04/2024 12:22:26 PM Name: MRS. ALLIE LYNN Date of : 1970 Age: 54 years Gender: F Clinical Indication Follow-up study on a patient with known carotid disease. TECHNIQUE -------- A carotid duplex ultrasound examination was performed, including grayscale imaging and color Doppler and spectral Doppler examination of the below mentioned arteries. FINDINGS -------- RIGHT SIDE Common carotid artery: Origin: PSV: 67 cm/s. EDV: 16 cm/s. Proximal: PSV: 82 cm/s. EDV: 14 cm/s. Mid: PSV: 76 cm/s. EDV: 19 cm/s. Distal: PSV: 78 cm/s. EDV: 22 cm/s. Internal carotid artery: Origin: PSV: 64 cm/s. EDV: 18 cm/s. Proximal: PSV: 61 cm/s. EDV: 18 cm/s. Mid: PSV: 52 cm/s. EDV: 22 cm/s. Distal: PSV: 43 cm/s. EDV: 13 cm/s. Mild heterogeneous plaque at origin. ICA/CCA Ratio: 0.8 External carotid artery: Origin: PSV: 70 cm/s. EDV: 16 cm/s. Mild heterogeneous plaque at origin. Subclavian artery: Origin: PSV: 193 cm/s. EDV: 0 cm/s. Mild heterogeneous plaque at origin. Innominate artery: PSV: 148 cm/s. EDV: 12 cm/s. Vertebral artery: PSV: 55 cm/s. EDV: 15 cm/s. LEFT SIDE Common carotid artery: Proximal: PSV: 102 cm/s. EDV: 28 cm/s. Mid: PSV: 80 cm/s. EDV: 23 cm/s. Distal: PSV: 64 cm/s. EDV: 20 cm/s. Mild heterogeneous plaque at distal. Internal carotid artery: Origin: PSV: 70 cm/s. EDV: 23 cm/s. Proximal: PSV: 81 cm/s. EDV: 29 cm/s. Mid: PSV: 81 cm/s. EDV: 26 cm/s. Distal: PSV: 67 cm/s. EDV: 24 cm/s. Mild heterogeneous plaque at origin. ICA/CCA Ratio: 1.3 External carotid artery: Origin: PSV: 97 cm/s. EDV: 22 cm/s. Mild heterogeneous plaque at origin. Subclavian artery: Proximal: PSV: 86 cm/s. EDV: 0 cm/s. IMPRESSION Compared to prior study of 06/19/2022, No significant change. RIGHT SIDE Internal carotid artery: 20-39% stenosis. Vertebral artery: Patent and antegrade flow noted. Subclavian artery: Plaque visualized without evidence of hemodynamically significant stenosis. LEFT SIDE Common carotid artery: Plaque visualized without evidence of hemodynamically significant stenosis. Internal carotid artery: 20-39% stenosis. Vertebral artery: Unable to visualize. Possible occlusion. Subclavian artery: Patent. Technologist: Ilene Cruz RVT [facility] Ordering physician: IFEOMA DAVIS Interpreting physician: JOSHUA Spence DO Final CC codetag Medical Image : [id number] ISUID See Link below for Image Normal [facility] Carotid arteries - vinnie jeffrey 06-04-2024 Non-Invasive Vascular Laboratory [facility] Carotid Duplex Bilateral/Complete Date of service/time: 06/04/2024 12:22:26 PM Name: MRS. ALLIE LYNN Date of : 1970 Age: 54 years Gender: F Clinical Indication Follow-up study on a patient with known carotid disease. TECHNIQUE -------- A carotid duplex ultrasound examination was performed, including grayscale imaging and color Doppler and spectral Doppler examination of the below mentioned arteries. FINDINGS -------- RIGHT SIDE Common carotid artery: Origin: PSV: 67 cm/s. EDV: 16 cm/s. Proximal: PSV: 82 cm/s. EDV: 14 cm/s. Mid: PSV: 76 cm/s. EDV: 19 cm/s. Distal: PSV: 78 cm/s. EDV: 22 cm/s. Internal carotid artery: Origin: PSV: 64 cm/s. EDV: 18 cm/s. Proximal: PSV: 61 cm/s. EDV: 18 cm/s. Mid: PSV: 52 cm/s. EDV: 22 cm/s. Distal: PSV: 43 cm/s. EDV: 13 cm/s. Mild heterogeneous plaque at origin. ICA/CCA Ratio: 0.8 External carotid artery: Origin: PSV: 70 cm/s. EDV: 16 cm/s. Mild heterogeneous plaque at origin. Subclavian artery: Origin: PSV: 193 cm/s. EDV: 0 cm/s. Mild heterogeneous plaque at origin. Innominate artery: PSV: 148 cm/s. EDV: 12 cm/s. Vertebral artery: PSV: 55 cm/s. EDV: 15 cm/s. LEFT SIDE Common carotid artery: Proximal: PSV: 102 cm/s. EDV: 28 cm/s. Mid: PSV: 80 cm/s. EDV: 23 cm/s. Distal: PSV: 64 cm/s. EDV: 20 cm/s. Mild heterogeneous plaque at distal. Internal carotid artery: Origin: PSV: 70 cm/s. EDV: 23 cm/s. Proximal: PSV: 81 cm/s. EDV: 29 cm/s. Mid: PSV: 81 cm/s. EDV: 26 cm/s. Distal: PSV: 67 cm/s. EDV: 24 cm/s. Mild heterogeneous plaque at origin. ICA/CCA Ratio: 1.3 External carotid artery: Origin: PSV: 97 cm/s. EDV: 22 cm/s. Mild heterogeneous plaque at origin. Subclavian artery: Proximal: PSV: 86 cm/s. EDV: 0 cm/s. IMPRESSION Compared to prior study of 06/19/2022, No significant change. RIGHT SIDE Internal carotid artery: 20-39% stenosis. Vertebral artery: Patent and antegrade flow noted. Subclavian artery: Plaque visualized without evidence of hemodynamically significant stenosis. LEFT SIDE Common carotid artery: Plaque visualized without evidence of hemodynamically significant stenosis. Internal carotid artery: 20-39% stenosis. Vertebral artery: Unable to visualize. Possible occlusion. Subclavian artery: Patent. Technologist: Ilene Cruz RVT, IRENE Ordering physician: IFEOMA DAVIS Interpreting physician: JOSHUA Spence DO Final See Link below for Image [facility] OCT MACULA CIRRUS OU (BOTH E YES)on 02-18-2024 [facility] Radiology Study observation (narrative) [facility] SURGICAL PATHOLOGYOrdered By : Rik De La Paz on 06-07-2023 Addendum s0hcmCYdZFXgfZJiSQNh M1x lwdMzFSVdmBHcC4YvbzuyDV onFO8nRU3ydIeybZLjpUDrJ IYlGzVbb9hao874lSLrn2ky LGOVONnpASQGAGu2y3wbFPJ ZtppsrQx4lQsvJ20qf8G7We yjM2urHBFuLZawDJDmTPldm RFyOFf2YSSgbCUmyiVzFpIl RPMkqCIpfWQ5ZIZhJZ4ywkc zZNyyAUamXMCboeO8RYDjlB XyT0ZlQGXjLK1uzqecOHP6O DcsYBYyFXD2EiThDRRcx8Eu vwa6JtQedHGzXSjhvGTzzfn xNMuyqlXqWHatxZZlp5ewj4 NwT2agjGdhaBJ8AFDvncIKS iBweWxvcmkgaXMgbmVnYXRp dmUgKHBhcnQgQikuXHBhclx cHnJxnFXhOBzrCm3iUFEsja xhVYP8LCplfLCxNSAzo9CtG YzVGDitGDflJ4lavN2beibv bVUjASRcqyBeym6dnkNkYAF dBFQjB6IsnggucWtudmGyOo NhzK05ck7wfPK5j1GpJF1mY 5NnZKLowR06vq6anESxpmUr L6YhpYAfttLvL8vcn45tB8V rvHDtkP1mx2y6rTMpyQDvtH YovmN0oN8lUWOki5FqDGxal iNuQwLmqgCgXXDfwk0kmjNl GYW5SVDqLOIaNYPee4HzcQ0 fLShkDc2mUUIrgemjt0x1pW luIENsZXZlbGFuZCBDbGlua DLdfMotOYngQPf4KnBzNv6l RTA9EAuzDEKjxFefZ8boVMB 7zE7hn9k8PUTmKYHCSPRoxb E0a8J1QF3rZUcxcB2aSLvfx 8MdzYJ3AWPiAOEcwaEIPX0e nRHnJG0ynHy4WSfrUKRtmj7 cHNjduhBdLJeqWB4qcZj8TW fbAARnn6YtLNNbF7LbxS9fG Yabm0RvrVKrIQVPINAupPQK x5BzxOUcpJlnBT9csOZdXPV utvHeCN1oHRgnPUqeY2JssQ CeRUDSSQK1jW7tQQIdpANgD M4kscMvBJava1DmeQNtLAXm omWZlfkzblOEy9BgtDHdzSy hbF4jLMMjPD9ySPKpN41av3 eieXQndPH2hLSqIOLMKOSqv hUvvNdiWZ5jqgZuYfSBqnLy c8VwsX3qGGHhDuA5iDOpVLC 8NOI4esRfOQPtXH0ijEIlMB NmJTCoMJAmXUNmo5RuFOVzz b23KEWqIvefuQcjEDNJOX8j RgAeULoKWEAvjmOwILe0nOW 7TMYjoJ1eQVOrZ2sSBAUfwe SdyMJknTAtVVUoaR4nkIYrR h1ldRLerPzkIUYnmJQzVXrn uXzxaOCrqFudWm7qWDaaa9R gdGVzdHMgYXJlIHVzZWQgZm 7dVFYuhB1oV0OkGIV8fwZwf 5FpSvJGfKA3QKVtp6EkRKLy b1HlXnRkkmPeQKUkSLRoLHE fyL86ADF0kAqkpQipfvDlKB 2tBZCxcvSzYXImPELdiL7yV I0xeRCrstZaOF3sBN7eD8G5 qIDuCVHxyiHbc0daXGX1XPr uIGFwcHJvcHJpYXRlbHkuXH Bhcn0= [facility] Work Phone: Case Report Surgical Pathology Report Case: [id number] Authorizing Provider: Andry Connelly MD Collected: 05/30/2023 01:16 PM Ordering Location: Ambulatory Surgery Received: 05/30/2023 09:01 PM Pathologist: Rik De La Paz MD Specimens: A) - DUODENUM BIOPSY, 2nd portion B) - ANTRUM (STOMACH) BIOPSY C) - STOMACH (GASTRIC) POLYP BIOPSY D) - RECTAL POLYP [facility] Work Phone: FINAL DIAGNOSIS o4bpuCBhTOMwoCAjNTAj M1x vzmMfPVMzbQNvJ3DxpdkhDZ prGZ7oNH8vxPrntJIglQJyE JPsDnIej2xhl607iXAjy8kw ETMUshyqeKb9tTlsL81rj4E 0NlcdB72ksQRqPIR5ETZhXE AlpSDeXBLpGBJ5WIAtmIAqZ 2iwFBBoMD3akfczKHwfMMfg MNYyvWF0VHQhmDXnC5NlUGB uIZtwXLTgnym6YfSpDl2tcU VyeTcyMFxwYXJkXHBsYWluX TAhUaWaUE8bNOJ9r9YpepHr SUElpM4be6l5EHKpldPhLBJ tYWxsIGludGVzdGluYWwgbX Cgl2FrQBzowCrurt9im3api xghuGRrpeDtnVS3iY8zp7qe KjUyMt1has6yqUi6cN5wvTU uYDXpqlRZMiVmV3LkpHJexZ zsRoyacQB9JrdzZEJeTBWDl QfvTYLanq1shHAwZ8MnwPWu dGlzLlxwYXJccGFyIEMuICB DxT3qVMNiQYRjl6a7qGQtxM 6cmKjmtYTfBX5kWsUwYWtqU QdfGF3wECCyrOdgLdxrBFUk lSLbMFElRBNMBSJ9iR4kZLH ciWeqRXB1b665UqskOEJwAE WPjAK5rVWuWBTpHN0kcWQdT HBhcn0= [facility] Work Phone: Gross Description f1jefWUvTBTzaIYSDAU0 MDJ hYD6xoBmznCo9oRzeNVVmkg U4zCDuJFvje1pbWJZ2u1ntt kOBIshiDQVeVN8mEEhyFAZm JE5fFnEwODSyJeNzRDNwkXM ubxXmCaNnSXNciYYbrRJ0OI WnSS1sgmckWQepJRtvEZHav tB5FDAtcCEyP4IgGLYeTJ6d fwzlZEE9GEOOQndhJk5ttMQ ibHtcZjFcZmNoYXJzZXQwXG GwsVdbKFHqQXk8rB8HHyrnU ZH7UFPOKtijJqjyzEcpq0Bp dCBcXHNnIFxcaWQgNTEwMDA aYRqiDfJJUbTwWsD7BosaYa e7RuPqNCd7MDrkXoEHERx2F IH2XlNzFXd6VFrvREugtLYd NZFuOQImAZOrJMpndxU5l8i rLITkeCGhDHR3WWutu1puRM jpWXL8GNOpSiJiIMArCZ7HP wYsBJYsPcWwOakaUmM0QPy2 OSBPVlMgIiAgMzgwNjQwMjk xKVx7HUd1FUgBUsCzGTZdLo nuFCQaGdM0OGn9CmYcMYYqK jAzLHLuIGPsRXozcXXeBS2u qTrlHDPpCQ0KGFWhUWkhGSG cNxMyUK8hLRFYEONKGI1yMh vHCILDRFf2yuXeGMRjdpHND eghPNKlMA2QSQXzHAxbHYs0 jwMbCGKxGqCnAMKoJ93pd7Y Qs9IeKX3MYUy4ztUvwvqnhX 4wXHJpbjAgDQpcZnMyMCBSZ IIocQBeAVCxegCsv5KuJPfr biBhcmUgbXVsdGlwbGUgcGl bC1ZzEM9wEZZqxxtzm30tlQ W8aLUdoJNdKYcddbIaDNMfn kegvH6zWJKgKXH5LPIlEmO4 ZCXwSiUelE2bBV53EZflhSB dkCNcoWU5MZSvmP2ra47vQU Vrp0LnsWSpFyhkTWXfHQfnj 2EzMFxlcGljWHNhMzAgDQpc AHAoN85ga0ZKh2Bff4azlZw gv0JpaXLpDI9ypJGkCX8Vi2 wrYGNxsCVfZGK7UOxcz4reA KvzPKF6DTQgJqPwSDSmKQ3F DtYxWMBlGhXqUalqToN9DJu 5OSBPVlMgIiAgMzgwNjQxMD MhLWz0CGw4PHmBTxEuCQPrT wfaJSF4DQU9XYh3IgDrLSDj MiBcXHNzIDMgXFxmbCBcXG5 zpZjoMHZeYSYsHVP7JJLkoU HIu7DgXCJoOYcoZjWjUpKCU sXKYkMKCP2qCZRPF00AJ9gp OMPOT6TBRPxyPVIbXQtooCI yZCANClxwbGFpblxsdHJjaF yewoFvDRTblSJJAFH2VO7qD SANClxsdHJwYXJcbGluMFxy nB4lJGYoJlLjVYQbH0hxZaG fKD5LNEVsYjKzSlKaWPd8EE EjlB0zOi0tbGHpiC8tJYFeR JD0uqWavPQnJXUhd2LnfJOb DHYms0C8JVXxj5T2EZCaO6w uKEhfaTvrLsU8snAsBacepQ MaLoSyxXUyPtZvL37sCYVgj GFwoTfxi4RauSh1mSSzDTpr KM8zQAApZZTiVSU8KD3wdBC wHB4PDFNhCIokoYzbBYMfUA uiBCMePLMkpXLHc9PbKJWNE pqbeWiaTnBaaGSdLxD5RMLy lILrOZK2RS5aeHzwHPDyGKs 5PVbdRRHuI8IvM3JyMSucBj BcXGlkIDUxMDAyIFxcZGIgT 2GZDWOnCFZ7FsF1YlQjLDw8 JOq1IZ9LDrRgMORsPUP8VFD 8GRGeSMc2VCgnFR4SMDVrEq DpMPE9Qmw5AWE5Dix6WLgzm MVlSVhwq2ObEfRvKISeXCrq joK9GJVexaJpv2FiTEEmZZC xV5vnOhAuPMLYEowgxzWeLJ QgZWWJB22GL8gzQXcIG6FQH QJmUATXSKjVQXXNN4TLFDzl YXIgDQpccGFyZCANClxwbGF pblxsdHJjaFxmczIyXGVwaW HRNKP2QV4ySPCVXhiwiKSyS CZriZdhWOfjuM2mETWqLpJg OAXbJ8elPhQlAP6MAMSvTfX bUcMqPXa9TZKbcG3dTx7spH IpaW8enBHbj20cIWBkSCUoO X5tSFIrqy0kom47vgvms82u rCC6rGJcuSGodWXhp8VtxP9 sBTNlVoO0UGSgWsV0BYRiQs WiyH5lJU82BFhoeSYlwZRuv JO2EUCytN9tv97hRUElv1Jg jKWqLqNwoDMrGU3RYQVpDGu lcGljWHNiMFxzYTMwXGVwaW CJh6YaEAASWozheCpcAwUdf WXgNzV7EJNmtTKoBGD6UL9o xCthJGTtQMz7KEvvPEUiT8X jH3DpAUqlUvFuVRzuLEUpGJ BxUPkxGGLxF3GBJSIlFLL1G uY0LkNuRSs0PRh1IY5WSjGi GLWhCFX5FYm4PgFxVHi5FPz nND6EGLYvGjQnOCK4Hgv4ZC W7Twg1PUjzzWTaEZscs2YdT aUfTIXbIWdnvmV3GZTpybMi u1PxTMSnLDZzQ5kkCkGdPFC DWtxehqYqOHXoSJWJA0MRXA PVX7qZHCgdXVNpVVpreTLiV CANClxwbGFpblxsdHJjaFxm xeYcCFVpdMYCMHS6VV4rCCA NClxsdHJwYXJcbGluMFxyaW 9fCFWzBhXyMRCgF2iiSkTlK C8JXGBpAvArGuSeXGv4EMUr zL3dDi3xeRRgkA4amKUxz92 wJFYlQRQtXV0dKKDiitblw8 0bpGJ3kCEvsZMojPCpe0Lko J8bAUQcPxR3CYZsJrH2IIHr OKGqaS2iJH62DKxjgPJooUR rxWA0QEElqV0ie56nYHFek8 YcyBZeRzIszURnKW5UNAAwE FxlcGljWHNiMCANCiBccGFy DZ7FM5Spg6LsOLdwaBlgQOP dm86msGGfQo8ffBLeMNP6FQ NsZXZlbGFuZCBDbGluaWMsI Ag4TRQbRCDpzJvtCFH1YP3t WMPhWFMseVAaHEbuU7ahECU nVOVtqGEoFF9XVWKgyqCGAu tLIFNlcHRlbWJlciAyOSwgM dAvBpMnLqG2KEYNOT1rdQVc FS1FURSajgKLThaxSFAzKUU vgXYSc1AbIZKUZcjzrTsiNy QezELvLbH1TYYfbCGtBDB7E I9iwQpbPFArR2SwV0AbsbD7 RODnosOHIfhcEYSgOF5KQCI zMjIgDQp9 [facility] Work Phone: Performing Lab o1heoONqXHArnILlIzDx MDA oAGQny0hnEMPjvVQbGdGuMk NcZnRuYmpcdWMxXGRlZmYwe 1eyw875aUQun3lvCQRdKzC8 aCBuGYOunMDkT890FOMlVOd go2lwf9FgKEDzhQLvs4N4KT EXacvvcOz0rSknR60si3P2V evtA6vnDFPvKXIdM9CmOQ8i BUBrWlj0WOS2TTF2WJMmOJK zY6YyOU9cBKHixJEuRKk1m9 qiuEwfZLCuAEE7u7egKOfwb kWcFL9stn4jmEi8p8ibesGv RSPhOAZqjAJVCHMaU5GesZz jDv5czSa4oCchBgzrVGH9Rv j6AK0xqi11ozx0fQjkKBHcp yaxFxR0NKrsPOGhwobwILi2 AKtzEPKuvII4XXZggNVbK8Z oAMveRT8lzpq4CPX2SNhgNV NlNlV4KQBmkOWgKWMaiDvzH Cmjn711GYB8NjGkUN5aY6Bu p9W6kI4lkUCaGJNteNJqLaZ xTJZkmj0itELnJDhcu3HiCC B6ycR9lLByqEHdJHWzBV99M hxjo7UvXuyev0VdW15daSH8 UZyta5ayVO4oNzD8fmXzIZq qd5yihJ7vDqO0SBtoEH2kXJ 3gRLVckD0nvejpHDGmRaWlw pniQAMojSohxyEoUi0vmBwv DBK3ETivX3edcJ6aDmS2PVi vL1unjB7dEDg4AAsbpYS6OM SzuZ0qML7rrlgze7knZKbzE VhiXMBkmhV5omPdTULoeHJs P4GnyO2kRTZhSY8ydccwf2y dHZP0SMymNPAlCMR9GqWoWK Rmx0Snois1DqYfy1XqgMGhR ZjyS15tk949LNCukiMxO8be bGFpblxwbGFpblxmMFxmczI 0XHFsXHBsYWluXGYxXGZzMj JcbGFuZzEwMzNcaGljaFxmM SdmPhFwCAMbLRllY5ocCgPl AcDfQcOZzMQunw9zaDtuSYg hkOEmoWEztBM2yP1cRVTowb Zwvj6iLEIkmMFWpCX5DIgij hRlA8jdpazdNOF0BJViXRT0 H4jxMDEHybAkZUGdRAWusNI aKCXPLPB1VKF7YVOjFVBNOC ByMCH1XFE4BZTqVBGwfJBmC HBhclxwYXJkXHBsYWluXGYw NSOuPuSfqFhlgQ0aQgJfGwV eQvmsWF4jGQBmK8udxSFxZB LdAZZzO0iiRrDvsM2piOdvB VxjZjJcZnMyMlxsdHJjaCBM DYXzfqQ4v5V9OVlmjVGnemu mMVxmczIyXGxhbmcxMDMzXG ytT1weIdHkGUYwpVnpFLgrg 6BpROBbXNXtKzTaQYddWKY2 w1I9JGzztKOzxvXALvYXHM1 jhOFwkozhBQ9ZLzauTBC9 [facility] Work Phone: [facility] Work Phone: EGD Study observation Narrat ketan 06-01-2023 [facility] Patient Name: Allie Lynn Procedure Date: 05/30/2023 1:05 PM Date of : 1970 Admit Type: Outpatient Age: 53 Room: [place] [address] Gender: Female Note Status: Finalized Attending MD: Andry Connelly MD Procedure: Upper GI endoscopy Indications: Gastro-esophageal reflux disease Providers: Andry Connelly MD Patient Profile: Refer to note in patient chart for documentation of history and physical. Referring Physician: Cande Pozo (pa) (Referring MD) Medicines: Monitored Anesthesia Care Complications: No immediate complications. Requesting Provider: Procedure: Pre-Anesthesia Assessment: - Prior to the procedure, a History and Physical was performed, and patient medications and allergies were reviewed. The patient's tolerance of previous anesthesia was also reviewed. The risks and benefits of the procedure and the sedation options and risks were discussed with the patient. All questions were answered, and informed consent was obtained. Prior Anticoagulants: The patient has taken no anticoagulant or antiplatelet agents. ASA Grade Assessment: II - A patient with mild systemic disease. After reviewing the risks and benefits, the patient was deemed in satisfactory condition to undergo the procedure. After obtaining informed consent, the endoscope was passed under direct vision. Throughout the procedure, the patient's blood pressure, pulse, and oxygen saturations were monitored continuously. The Endoscope was introduced through the mouth, and advanced to the second part of duodenum. I was present and participated during the entire procedure, including non-mendoza portions, and during the administration and monitoring of Moderate Sedation. The upper GI endoscopy was accomplished without difficulty. The patient tolerated the procedure well. Moderate Sedation: MAC anesthesia was administered by the anesthesia team. Findings: A small hiatal hernia was present. Normal mucosa was found in the entire examined stomach. Biopsies were taken with a cold forceps for Helicobacter pylori testing. Verification of patient identification for the specimen was done. Estimated blood loss was minimal. Multiple 3 to 5 mm sessile polyps with no stigmata of recent bleeding were found in the gastric fundus and in the gastric body. Biopsies were taken with a cold forceps for histology. Verification of patient identification for the specimen was done. Estimated blood loss was minimal. Normal mucosa was found in the entire duodenum. Biopsies were taken with a cold forceps for histology. Verification of patient identification for the specimen was done. Estimated blood loss was minimal. Impression: - Small hiatal hernia. - Normal mucosa was found in the entire stomach. Biopsied. - Multiple gastric polyps. Biopsied. - Normal mucosa was found in the entire examined duodenum. Biopsied. Recommendation: - Patient has a contact number available for emergencies. The signs and symptoms of potential delayed complications were discussed with the patient. Return to normal activities tomorrow. Written discharge instructions were provided to the patient. - Resume previous diet. - Continue present medications. - Await pathology results. - Return to GI clinic as previously scheduled. Procedure Code(s): --- Professional --- 22136, Esophagogastroduodenosc opy, flexible, transoral; with biopsy, single or multiple CPT copyright 2020 [employer]. All rights reserved. The codes documented in this report are preliminary and upon double back operator review may be revised to meet current compliance requirements. (more content not included)... [employer] Flexible sigmoidoscopy study on 06-01-2023 [facility] Patient Name: Allie Lynn Procedure Date: 05/30/2023 1:05 PM Date of : 1970 Admit Type: Outpatient Age: 53 Room: [place] [address] Gender: Female Note Status: Finalized Attending MD: Andry Connelly MD Procedure: Colonoscopy Indications: Change in bowel habits Providers: Andry Connelly MD Patient Profile: Last Colonoscopy: 3 years ago. Referring Physician: Cande Pozo (pa) (Referring MD) Medicines: Monitored Anesthesia Care Complications: No immediate complications. Requesting Provider: Procedure: Pre-Anesthesia Assessment: - Prior to the procedure, a History and Physical was performed, and patient medications and allergies were reviewed. The patient's tolerance of previous anesthesia was also reviewed. The risks and benefits of the procedure and the sedation options and risks were discussed with the patient. All questions were answered, and informed consent was obtained. Prior Anticoagulants: The patient has taken no anticoagulant or antiplatelet agents. ASA Grade Assessment: II - A patient with mild systemic disease. After reviewing the risks and benefits, the patient was deemed in satisfactory condition to undergo the procedure. After I obtained informed consent, the scope was passed under direct vision. Throughout the procedure, the patient's blood pressure, pulse, and oxygen saturations were monitored continuously. The Colonoscope was introduced through the anus and advanced to the cecum, identified by appendiceal orifice and ileocecal valve. I was present and participated during the entire procedure, including non-mendoza portions, and during the administration and monitoring of Moderate Sedation. The colonoscopy was performed without difficulty. The patient tolerated the procedure well. The quality of the bowel preparation was good. The ileocecal valve, appendiceal orifice, and rectum were photographed. Moderate Sedation: MAC anesthesia was administered by the anesthesia team. Findings: A 3 mm polyp was found in the distal rectum. The polyp was sessile. The polyp was removed with a cold biopsy forceps. Resection and retrieval were complete. Verification of patient identification for the specimen was done. Estimated blood loss was minimal. Impression: - One 3 mm polyp in the distal rectum, removed with a cold biopsy forceps. Resected and retrieved. Recommendation: - Patient has a contact number available for emergencies. The signs and symptoms of potential delayed complications were discussed with the patient. Return to normal activities tomorrow. Written discharge instructions were provided to the patient. - Resume previous diet. - Continue present medications. - Await pathology results. - Repeat colonoscopy in 5 years for surveillance. - Return to GI clinic PRN. - The patient is not currently taking anticoagulant or antiplatelet agents. Procedure Code(s): --- Professional --- 62339, Colonoscopy, flexible; with biopsy, single or multiple CPT copyright 2020 [employer]. All rights reserved. The codes documented in this report are preliminary and upon double back operator review may be revised to meet current compliance requirements. Attending Participation: I personally performed the entire procedure. Scope In: 1:23:39 PM Scope Out: 1:33:56 PM MD Andry Martin MD 05/30/2023 1:42:21 PM This report has been signed electronically by Andry Connelly MD Number of Addenda: 0 Note Initiated On: 05/30/2023 1:05 PM Estimated Blood Loss: Estimated blood loss was minimal. [employer] [facility] EGD Study observation Narrat iveon 05-30-2023 Radiology Study observation (narrative) [facility] Flexible sigmoidoscopy study on 05-30-2023 Radiology Study observation (narrative) [facility] Basic metabolic 2000 panelon 05-22-2023 Anion gap [Moles/Vol] 10 mmol/L 9 - 18 mmol/L [facility] Calcium [Mass/Vol] 9.8 mg/dL 8.5 - 10. 2 mg/dL [facility] Chloride [Moles/Vol] 101 mmol/L 97 - 10 5 mmol/L [facility] CO2 [Moles/Vol] 25 mmol/L 22 - 30 mmol/L [facility] Creatinine [Mass/Vol] 0.86 mg/dL 0.58 - 0.96 mg/dL [facility] Estimated Glomerular Filtration Rate 80 mL/min/1.73m >=60 mL/min/1.73m [facility] Glucose [Mass/Vol] 79 mg/dL 74 - 99 mg/dL [facility] Potassium [Moles/Vol] 4.1 mmol/L 3.7 - 5.1 mmol/L [facility] Sodium [Moles/Vol] 136 mmol/L 136 - 144 mmol/L [facility] Urea nitrogen [Mass/Vol] 18 mg/dL 7 - 21 mg/dL [facility] URIC ACID BLOODon 05-22-2023 Urate [Mass/Vol] 3.6 mg/dL 2.5 - 6.6 mg/dL [facility] ANES POSTPROC EVALon 023 ANES POSTPROC EVAL HNO ID: [id number] Author: Mary Kline MD Service: Anesthesiology Author Type: Anesthesiologist Type: Anesthesia Postprocedure Evaluation Filed: 11/07/2022 12:01 PM Note Text: POST ANESTHESIA EVALUATION NOTE : 1970 Procedure Summary Date: 11/07/22 [place] / [place]02 [place] An[place]hesia Start: 948 Anesthesia Stop: 1024 Procedure: RELEASE TRIGGER FINGER - RIGHT RING AND LEFT MIDDLE FINGERS (Bilateral: Finger) Diagnosis: Trigger ring finger of right hand Trigger middle finger of left hand (Trigger ring finger of right hand [M65.341]) (Trigger middle finger of left hand [M65.332]) Surgeons: Massimo Roberts MD Responsible Provider: Mary Kline MD Anesthesia Type: MAC ASA Status: 3 Anesthesia Type: MAC Last Vitals Vitals Value Taken Time BP 161/73 11/07/22 1100 Temp 36.2 ?C (97.2 ?F) 11/07/22 1024 Pulse 69 11/07/22 1107 Resp 15 11/07/22 1107 SpO2 98 % 11/07/22 1107 Vitals shown include unvalidated device data. Post Anesthesia Patient Status Patient Evaluation: PACU. PACU/ICU Patient Condition: stable. Anticipated Disposition: phase 2 then home. Neurological Status: aware and responsive. Pulmonary Status: breathing comfortably on room air Airway Control: returned to baseline unsupported. Cardiovascular Status: stable. Pain Management: clinically adequate - multimodal analgesia pain management approach Postoperative Hydration: acceptable. Intraoperative Events: no significant anesthesia events Post Operative Nausea/Vomiting Status: no significant post operative nausea or vomiting Recommendation: continue current plan of care. Anesthesia Observations No Documentation SIGNATURE: Mary Kline MD PATIENT NAME: Allie Lynn DATE: November 07, 2022 TIME: 12:01 PM CSN: [id number] [facility] ANES PRE-OPon 11-07-2022 ANES PRE-OP HNO ID: [id number] Author: Mary Kline MD Service: Anesthesiology Author Type: Anesthesiologist Type: Anesthesia Preprocedure Evaluation Filed: 11/07/2022 9:04 AM Note Text: ANESTHESIOLOGY DAY OF SURGERY NOTE : 1970 Procedure Information Date/Time: 11/07/22954 Procedure: RELEASE TRIGGER FINGER - RIGHT RING AND LEFT MIDDLE FINGERS (Bilateral: Finger) [place] Surgeons: Massimo Roberts MD Estimated body mass index is 30.86 kg/m? as calculated from the following: Height as of 10/16/22: 152.4 cm (5'). Weight as of 10/16/22: 71.7 kg (158 lb). Most recent hematocrit and potassium results: Hematocrit 38.4 10/15/2022 Potassium 4.2 10/15/2022 Relevant Problems CARDIO (+) Carotid atherosclerosis (+) Choroidal neovascular membrane (+) Hypertension (+) PAD (peripheral artery disease) (HCC) Other (+) Patellar tendinitis I - PHYSICAL EVALUATION AIRWAY Patient intubated: No. Tracheostomy tube not present Mallampati: II. TM distance: >3 FB. Neck ROM: full ROM without neurological symptoms. Mouth opening: adequate. Short neck: no. Thick neck: no Vicente present: no DENTAL Dental findings: teeth intact. Additional exam findings: yes. CARDIOVASCULAR Rhythm: regular Rate: normal PULMONARY Breath sounds clear to auscultation. II - ANESTHESIA PLAN ASA Score: 3 Anesthetic Plan: MAC The patient is not a current smoker. NPO Status: adequate Beta Agustin Monitoring Plan Monitoring plan: standard ASA. Post Procedure Analgesic Plan Postoperative analgesic plan: multimodal analgesia. Informed Consent Anesthetic risks, benefits, alternatives, personnel and consent discussed: yes. Patient / Responsible Constitution Party agrees to proceed: yes Patient / Surrogate agrees to blood products: blood products not planned DNR status not reviewed with patient and/or family prior to surgery. Significant changes in the patient condition since the History and Physical, not otherwise documented in primary service progress note: no. Potential Anesthesia issues that may suggest increased risk of complications or contraindication to planned procedure: none. No vitals data found for the desired time range. Facility-Administered Medications as of 11/07/2022 Medication Dose Route Frequency - lidocaine (PF) 10 mg/mL (1 %) 1-2 mg injection (XYLOCAINE) 0.1-0.2 mL INTRADERMAL PRN - lactated ringers iv infusion 5-30 mL/hr INTRAVENOUS CONTINUOUS - NaCl 0.9% iv flush bag 20 mL INTRAVENOUS PRN - ceFAZolin iv piggyback 2 g in D5W (iso-osmotic) 100 mL (ANCEF) 2 g INTRAVENOUS Pre-Op Once - acetaminophen 1,000 mg tab(s) (TYLENOL) 1,000 mg ORAL Pre-Op Once Outpatient Medications as of 11/07/2022 Medication Sig - mometasone (NASONEX) 50 mcg/actuation nasal spray Use 2 Sprays in the nose once daily. Rinse mouth after use. - cyclobenzaprine (FLEXERIL) 10 mg tablet Take 1 tablet by mouth twice daily as needed. - meloxicam (MOBIC) 15 mg tablet Take 1 tablet by mouth once daily. - atorvastatin (LIPITOR) 40 mg tablet Take 1 tablet by mouth once daily. - lisinopril-hydroCHLOROt hiazide (PRINZIDE,ZESTORETIC) 10-12.5 mg per tablet Take 1 tablet by mouth once daily. - omeprazole (PRILOSEC) 20 mg capsule Take 1 capsule by mouth once daily. - conjugated estrogens-medroxyPROGES TERone (PREMPRO) 0.45-1.5 mg per tablet Take 1 tablet by mouth once daily. - L.acid/B.animalis,bifid um/FOS (PROBIOTIC COMPLEX ORAL) Take by mouth. - biotin/calcium carbonate (BIOTIN-CALCIUM ORAL) Take by mouth. - traZODone (DESYREL) 50 mg tablet Take 1 tablet by mouth daily at bedtime. - aspirin, enteric coated (ASPIR-LOW) 81 mg EC tablet Take 1 tablet by mouth once daily. - trimethoprim-polymyxin (POLYTRIM) 10,000 unit- 1 mg/mL ophthalmic solution Use 1 Drop in the left eye four times daily. Begin 2 days BEFORE surgery - keTORolac (ACULAR) 0.5 % ophthalmic solution Use 1 Drop in the left eye four times daily. Begin 2 days BEFORE surgery - prednisoLONE acetate (PRED FORTE, ECONOPRED PLUS) 1 % ophthalmic suspension Use 1 Drop in the left eye four times daily. Begin 2 days BEFORE surgery - benzonatate (TESSALON PERLES) 100 mg capsule Take 1 capsule by mouth three times daily as needed for cough. (Patient not taking: No sig reported) - vitamin B complex (B COMPLEX-VITAMIN B12 ORAL) Take by mouth. - Collagenase powd - gabapentin (NEURONTIN) 100 mg capsule Take 1 capsule by mouth daily at bedtime for 181 days. I have interviewed and examined the patient. I have reviewed the medical record and/or the pre-anesthesia evaluation, pertinent labs, and test results. This contains updated information obtained within 48 hours of Surgery/Procedure. SIGNATURE: Mary Kline MD PATIENT NAME: Allie Lynn DATE: November 07, 2022 TIME: 9:04 AM CSN: [id number] Normal [facility] HISTORY PHYSICALon HISTORY PHYSICAL HNO ID: [id number] Author: Taina Fan PA-C Service: Orthopaedic Surgery Author Type: Physician [employer] Type: HANDP Filed: 11/07/2022 9:27 AM Note Text: Massimo Roberts MD Department of Orthopaedics Orthopaedics [address] [place] [address] Dept: [phone] Dept October 01, 2022 CHIEF COMPLAINT: Established Patient and Pain of the Left Hand and Established Patient and Pain of the Right Hand HPI Patient here today for calcifications left 3rd finger and right 4th finger pain. She reports that she is legally blind and uses her hands to help guide her. She has an EMG scheduled on 10/25/2022, but wanted to be seen before testing completed. She is right hand dominant. 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 ASSESSMENT: M65.341 Trigger ring finger of right hand (primary encounter diagnosis) M65.332 Trigger middle finger of left hand PLAN: WE discussed a number of treatment options. She's also getting a nerve test soon. She's interested in getting the trigger releases done. Ms. Allie Lynn was advised as to contrast therapies and/or to take analgesics/anti-inflamm atories as needed and all contraindications were reviewed. OBJECTIVE: Ms. Allie Lynn is a pleasant 52 year old in no apparent distress. Gen:There were no vitals taken for this visit. nl development, non obese, no deformities ENT: Normocephalic, normal hearing, moist mucosa CV: Pulses:Radial= 2+ and symmetric, capillary refill < 2 secs, no peripheral edema/varicosities Skin: no rash, bruising or lesions. Good turgor. Psych: cooperative and appropriate, alert and oriented x 3, good mood and affect. Musculoskeletal: TTP at A1 pulleys of RIght, ring and left middle. Mild diminished sensation in the median nerve distribution. MNCT pos. Imaging: Pending Supporting Subjective Information Below: Past Surgical History: PAST SURGICAL HISTORY PAST SURGICAL HISTORY Procedure Laterality Date ARTHROSCOPY KNEE DIAGNOSTIC W/WO SYNOVIAL BX SPX 1995 Arthroscopy, knee AVASTIN (BEVACIZUMAB) 1.25MG INTRAVITREAL INJECTION OD (RIGHT EYE) Right x 5 (03/12/17) DELIVERY ONLY 1988, 1991, 1993 , low cervical-x 3 COLONOSCOPY FLX DX W/COLLJ SPEC WHEN PFRMD 06/22/[address] MAXILLOFAC/SINUS 06/29/2015 normal ENDOMETRIAL BX W/WO ENDOCERVIX BX W/O DILAT SPX 02/18/2012 ESOPHAGOGASTRODUODENOSC OPY TRANSORAL DIAGNOSTIC 02/03/2018 EGD INCISION OF EYE, TRABECULECTOMY Right 10/26/2021 LASER SELECTA 2 TRABECULOPLASTY Left 01/08/2020 LASER TRABECULOPLASTY OD (RIGHT EYE) Right 10/26/2021 REMV CATARACT EXTRACAP,INSERT LENS Right 06/25/2022 S BALLOON,UTERINE ABLATION [id number] Medications: CURRENT MEDICATIONS Current Outpatient Medications Medication Sig mometasone (NASONEX) 50 mcg/actuation nasal spray Use 2 Sprays in the nose once daily. Rinse mouth after use. cyclobenzaprine (FLEXERIL) 10 mg tablet Take 1 tablet by mouth twice daily as needed. meloxicam (MOBIC) 15 mg tablet Take 1 tablet by mouth once daily. atorvastatin (LIPITOR) 40 mg tablet Take 1 tablet by mouth once daily. lisinopril-hydroCHLOROt hiazide (PRINZIDE,ZESTORETIC) 10-12.5 mg per tablet Take 1 tablet by mouth once daily. omeprazole (PRILOSEC) 20 mg capsule Take 1 capsule by mouth once daily. conjugated estrogens-medroxyPROGES TERone (PREMPRO) 0.45-1.5 mg per tablet Take 1 tablet by mouth once daily. L.acid/B.animalis,bifid um/FOS (PROBIOTIC COMPLEX ORAL) Take by mouth. biotin/calcium carbonate (BIOTIN-CALCIUM ORAL) Take by mouth. vitamin B complex (B COMPLEX-VITAMIN B12 ORAL) Take by mouth. traZODone (DESYREL) 50 mg tablet Take 1 tablet by mouth daily at bedtime. gabapentin (NEURONTIN) 100 mg capsule Take 1 capsule by mouth daily at bedtime for 181 days. aspirin, enteric coated (ASPIR-LOW) 81 mg EC tablet Take 1 tablet by mouth once daily. benzonatate (TESSALON PERLES) 100 mg capsule Take 1 capsule by mouth three times daily as needed for cough. (Patient not taking: Reported on 10/01/2022) Collagenase powd No current facility-administered medications for this visit. Allergies: Ultram [Tramadol Hcl], Darvocet A500 [Propoxyphene N-Acetaminophen], Hydrocodone Bitartrate, Nitrofurantoin, Opioids - Morphine Analogues, Propoxyphene, Tramadol, and Vicodin [Hydrocodone-Acetaminop hen] ROS: General (negative for fatigue, malaise, weight loss/gain) HEENT (negative for headache, earache, recent vision changes, sinus pain, sore throat) Respiratory (no recent shortness of breath, hemoptysis) CV (negative for chest tightness, palpitations) Musculoskeletal (see HPI) Psych (no depression, anxiety) Massimo Roberts MD [facility] OPERATIVE NOon 11-07-2022 OPERATIVE NO HNO ID: [id number] Author: Massimo Roberts MD Service: Orthopaedic Surgery Author Type: Physician Type: Operative Report Filed: 11/07/2022 10:43 AM Note Text: OPERATIVE/PROCEDURE REPORT LOG ID: [id number] SURGERY/PROCEDURE DATE: 11/07/2022 INCISION/PROCEDURE START TIME: 10:01 AM INCISION CLOSE/PROCEDURE END TIME: 10:19 AM SURGEON(S)/PROCEDURALIS T(S) AND SIZING MACHINE TENDER(S): Surgeon(s) and Role: * Massimo Roberts MD - Primary Physician Grinder [employer] Plant: Taina Fan PA-C Registered Nurse Spray Cementer: Marnie Freitas RN SURGERY/PROCEDURE(S): Right, ring finger trigger release. Left, middle trigger finger release. ANESTHESIA: Monitored Anesthesia Care with local. Procedure Details: On 11/07/2022, the patient was clearly identified in the preoperative area and marked accordingly on the Left middle and right, ring digits by myself. Patient was taken to the operative suite and placed in the supine position with an arm board on the right and left. All other bony landmarks were appropriately padded in standard fashion. The right and left upper extremities were sterilely prepped and draped in standard fashion. An appropriate time-out was conducted and all in the room were in agreement, signed consent form was on the chart. Anesthesia assumed care of the head and neck for the remainder of the case and began a MAC. Local anesthetic was provided at the base of the left middle digit near the A1 raymond site for a total of 2 mL of 1% lidocaine with Epinephrine. An incision was made over the A1 raymond of the middle finger. This was done superficially with a 15 blade and blunt dissection was taken down longitudinally to the flexor apparatus. The digital nerves were clearly identified and protected throughout the case with Crile retractors. Under direct visualization, I divided the A1 raymond site of the middle finger with a 15 blade. There was obvious tenosynovitis and a slight synovectomy was made with Littler scissors. I used a Ragnell retractor to pull the tendons up through the wound confirming their complete release. The wound was copiously irrigated. Hemostasis was observed with bipolar electrocautery. Closure was done with 4-0 Nylon sutures in horizontal mattress fashion for a total of 2. Xeroform gauze, an eye patch, light Demetria wrap was used for final bandage. I then moved to the right hand, in which the exact same steps were completed, but on the ring finger. Each hand was finally wrapped in coban. There were no complications during the procedures. Patient was safely awoken and transferred to the Postanesthetic Care Unit in stable condition. Pre-Op/Pre-Procedure Diagnosis: Left, middle and Right, ring trigger fingers. Post-Op/Post-Procedure Diagnosis: same. Estimated Blood Loss: None Specimens: None Implantable Devices: None Drains: None Complications: None I performed each procedure. CLOSURE TECHNIQUE: Primary SIGNATURE: Massimo Roberts MD PATIENT NAME: Allie Lynn DATE: November 07, 2022 TIME: 10:38 AM [facility] CNTHERAPYon 10-31-2022 CNTHERAPY OT/PT/Speech Visit ([facility]) AAMIRALLIE HOLLAND ([id number]) 1970 F [place] Date Time Provider Department 10/31/22 9:45 AM MICHELLE PEREZ Date Time Provider Department Center 10/31/2022 9:45 AM [id number], [facility] Reason for Visit: Occupational Therapy [504] OT Progress Note [1595] Primary Visit Diagnosis:Blindness right eye category 3, blindness left eye category 4 [H54.0X34] Other Visit Diagnoses:Complaints of difficulty with reading [R68.89] Difficulty with household tasks [R68.89] Impaired mobility and personal care [Z74.09, Z74.1] Personal care impairment [Z74.1] Allergies As of Date: 10/31/2022 Noted Allergy Reaction ULTRAM (TRAMADOL HCL) 03/12/2006 11 - Vomiting DARVOCET A500 (PROPOXYPHENE N-GABRIEL*04/28/2012 1 - Mental Status Change HYDROCODONE BITARTRATE 10/19/2017 9 - Itching NITROFURANTOIN 03/05/2020 14 - Other: See Comments Comments: Loss of conciousness OPIOIDS - MORPHINE ANALOGUES 03/05/2020 9 - Itching PROPOXYPHENE 03/05/2020 14 - Other: See Comments Comments: Hallucinations TRAMADOL 03/05/2020 14 - Other: See Comments Comments: Loss of conciousness VICODIN (HYDROCODONE-ACETAMINOP HE*04/28/2012 9 - Itching Date Reviewed: 10/16/2022 Reviewed by: Celeste Cardona LPN - Fully Assessed Prescriptions as of 10/31/2022 - trimethoprim-polymyxin (POLYTRIM) 10,000 unit- 1 mg/mL ophthalmic solution Use 1 Drop in the left eye four times daily. Begin 2 days BEFORE surgery - keTORolac (ACULAR) 0.5 % ophthalmic solution Use 1 Drop in the left eye four times daily. Begin 2 days BEFORE surgery - prednisoLONE acetate (PRED FORTE, ECONOPRED PLUS) 1 % ophthalmic suspension Use 1 Drop in the left eye four times daily. Begin 2 days BEFORE surgery - mometasone (NASONEX) 50 mcg/actuation nasal spray Use 2 Sprays in the nose once daily. Rinse mouth after use. - cyclobenzaprine (FLEXERIL) 10 mg tablet Take 1 tablet by mouth twice daily as needed. - meloxicam (MOBIC) 15 mg tablet Take 1 tablet by mouth once daily. - atorvastatin (LIPITOR) 40 mg tablet Take 1 tablet by mouth once daily. - lisinopril-hydroCHLOROt hiazide (PRINZIDE,ZESTORETIC) 10-12.5 mg per tablet Take 1 tablet by mouth once daily. - omeprazole (PRILOSEC) 20 mg capsule Take 1 capsule by mouth once daily. - conjugated estrogens-medroxyPROGES TERone (PREMPRO) 0.45-1.5 mg per tablet Take 1 tablet by mouth once daily. - benzonatate (TESSALON PERLES) 100 mg capsule Take 1 capsule by mouth three times daily as needed for cough. - L.acid/B.animalis,bifid um/FOS (PROBIOTIC COMPLEX ORAL) Take by mouth. - biotin/calcium carbonate (BIOTIN-CALCIUM ORAL) Take by mouth. - vitamin B complex (B COMPLEX-VITAMIN B12 ORAL) Take by mouth. - Collagenase powd - traZODone (DESYREL) 50 mg tablet Take 1 tablet by mouth daily at bedtime. - gabapentin (NEURONTIN) 100 mg capsule Take 1 capsule by mouth daily at bedtime for 181 days. - aspirin, enteric coated (ASPIR-LOW) 81 mg EC tablet Take 1 tablet by mouth once daily. Meds Comments as of 09/05/2021: 09/05/21 The medications are managed by this patient by: PATIENT ALMA DELIA Rosario [facility] GENOVEVA CARR RTon 023 [facility] US BREAST LTD RTon 3 [facility] CNTHERAPYon 10-17-2022 CNTHERAPY OT/PT/Speech Visit ([facility]) ALLIE LYNN ([id number]) 1970 F Date Time Provider Department 10/17/22 10:45 AM MICHELLE PEREZ Date Time Provider Department Center 10/17/2022 10:45 AM [id number], REBECCA*[facility] N Reason for Visit: Occupational Therapy [504] Primary Visit Diagnosis:Difficulty with household tasks [R68.89] Other Visit Diagnoses:Blindness right eye category 3, blindness left eye category 4 [H54.0X34] Impaired mobility and personal care [Z74.09, Z74.1] Personal care impairment [Z74.1] Complaints of difficulty with reading [R68.89] Allergies As of Date: 10/17/2022 Noted Allergy Reaction ULTRAM (TRAMADOL HCL) 03/12/2006 11 - Vomiting DARVOCET A500 (PROPOXYPHENE N-GABRIEL*04/28/2012 1 - Mental Status Change HYDROCODONE BITARTRATE 10/19/2017 9 - Itching NITROFURANTOIN 03/05/2020 14 - Other: See Comments Comments: Loss of conciousness OPIOIDS - MORPHINE ANALOGUES 03/05/2020 9 - Itching PROPOXYPHENE 03/05/2020 14 - Other: See Comments Comments: Hallucinations TRAMADOL 03/05/2020 14 - Other: See Comments Comments: Loss of conciousness VICODIN (HYDROCODONE-ACETAMINOP HE*04/28/2012 9 - Itching Date Reviewed: 10/16/2022 Reviewed by: Celeste Cardona LPN - Fully Assessed Prescriptions as of 10/22/2022 - trimethoprim-polymyxin (POLYTRIM) 10,000 unit- 1 mg/mL ophthalmic solution Use 1 Drop in the left eye four times daily. Begin 2 days BEFORE surgery - keTORolac (ACULAR) 0.5 % ophthalmic solution Use 1 Drop in the left eye four times daily. Begin 2 days BEFORE surgery - prednisoLONE acetate (PRED FORTE, ECONOPRED PLUS) 1 % ophthalmic suspension Use 1 Drop in the left eye four times daily. Begin 2 days BEFORE surgery - mometasone (NASONEX) 50 mcg/actuation nasal spray Use 2 Sprays in the nose once daily. Rinse mouth after use. - cyclobenzaprine (FLEXERIL) 10 mg tablet Take 1 tablet by mouth twice daily as needed. - meloxicam (MOBIC) 15 mg tablet Take 1 tablet by mouth once daily. - atorvastatin (LIPITOR) 40 mg tablet Take 1 tablet by mouth once daily. - lisinopril-hydroCHLOROt hiazide (PRINZIDE,ZESTORETIC) 10-12.5 mg per tablet Take 1 tablet by mouth once daily. - omeprazole (PRILOSEC) 20 mg capsule Take 1 capsule by mouth once daily. - conjugated estrogens-medroxyPROGES TERone (PREMPRO) 0.45-1.5 mg per tablet Take 1 tablet by mouth once daily. - benzonatate (TESSALON PERLES) 100 mg capsule Take 1 capsule by mouth three times daily as needed for cough. - L.acid/B.animalis,bifid um/FOS (PROBIOTIC COMPLEX ORAL) Take by mouth. - biotin/calcium carbonate (BIOTIN-CALCIUM ORAL) Take by mouth. - vitamin B complex (B COMPLEX-VITAMIN B12 ORAL) Take by mouth. - Collagenase powd - traZODone (DESYREL) 50 mg tablet Take 1 tablet by mouth daily at bedtime. - gabapentin (NEURONTIN) 100 mg capsule Take 1 capsule by mouth daily at bedtime for 181 days. - aspirin, enteric coated (ASPIR-LOW) 81 mg EC tablet Take 1 tablet by mouth once daily. Meds Comments as of 09/05/2021: 09/05/21 The medications are managed by this patient by: PATIENT ALMA DELIA Rosario [facility] XR SHOULDER [id number] AP/SYLVIA E AP RIGHTon 10-09-2022 [facility] XR HAND GENERAL 3V PA/LAT/OB L BILATERALon 10-01-2022 [facility] GENOVEVA SCREENINGon 09-27-2022 [facility] CNTHERAPYon 09-19-2022 CNTHERAPY OT/PT/Speech Visit ([facility]) ALLIE LYNN ([id number]) 1970 F [place] Date Time Provider Department 09/19/22 12:30 PM MICHELLE PEREZ Date Time Provider Department Center 09/19/2022 12:30 PM [id number]: OT EVAL [748] Occupational Therapy [504] Primary Visit Diagnosis:Blindness right eye category 3, blindness left eye category 4 [H54.0X34] Other Visit Diagnoses:Difficulty with household tasks [R68.89] Impaired mobility and personal care [Z74.09, Z74.1] Personal care impairment [Z74.1] Complaints of difficulty with reading [R68.89] Allergies As of Date: 09/19/2022 Noted Allergy Reaction ULTRAM (TRAMADOL HCL) 03/12/2006 11 - Vomiting DARVOCET A500 (PROPOXYPHENE N-GABRIEL*04/28/2012 1 - Mental Status Change HYDROCODONE BITARTRATE 10/19/2017 9 - Itching NITROFURANTOIN 03/05/2020 14 - Other: See Comments Comments: Loss of conciousness OPIOIDS - MORPHINE ANALOGUES 03/05/2020 9 - Itching PROPOXYPHENE 03/05/2020 14 - Other: See Comments Comments: Hallucinations TRAMADOL 03/05/2020 14 - Other: See Comments Comments: Loss of conciousness VICODIN (HYDROCODONE-ACETAMINOP HE*04/28/2012 9 - Itching Date Reviewed: 08/16/2022 Reviewed by: Wolf Mason OD - Fully Assessed Prescriptions as of 09/19/2022 - mometasone (NASONEX) 50 mcg/actuation nasal spray Use 2 Sprays in the nose once daily. Rinse mouth after use. - cyclobenzaprine (FLEXERIL) 10 mg tablet Take 1 tablet by mouth twice daily as needed. - meloxicam (MOBIC) 15 mg tablet Take 1 tablet by mouth once daily. - atorvastatin (LIPITOR) 40 mg tablet Take 1 tablet by mouth once daily. - lisinopril-hydroCHLOROt hiazide (PRINZIDE,ZESTORETIC) 10-12.5 mg per tablet Take 1 tablet by mouth once daily. - omeprazole (PRILOSEC) 20 mg capsule Take 1 capsule by mouth once daily. - conjugated estrogens-medroxyPROGES TERone (PREMPRO) 0.45-1.5 mg per tablet Take 1 tablet by mouth once daily. - benzonatate (TESSALON PERLES) 100 mg capsule Take 1 capsule by mouth three times daily as needed for cough. - L.acid/B.animalis,bifid um/FOS (PROBIOTIC COMPLEX ORAL) Take by mouth. - biotin/calcium carbonate (BIOTIN-CALCIUM ORAL) Take by mouth. - vitamin B complex (B COMPLEX-VITAMIN B12 ORAL) Take by mouth. - Collagenase powd - traZODone (DESYREL) 50 mg tablet Take 1 tablet by mouth daily at bedtime. - gabapentin (NEURONTIN) 100 mg capsule Take 1 capsule by mouth daily at bedtime for 181 days. - aspirin, enteric coated (ASPIR-LOW) 81 mg EC tablet Take 1 tablet by mouth once daily. Meds Comments as of 09/05/2021: 09/05/21 The medications are managed by this patient by: PATIENT ALMA DELIA Rosario [facility] ANES POSTPROC EVALon 06-25-2 022 ANES POSTPROC EVAL HNO ID: [id number] Author: Florencio De La Fuente MD Service: Anesthesiology Author Type: Anesthesiologist Type: Anesthesia Postprocedure Evaluation Filed: 06/25/2022 12:00 PM Note Text: POST ANESTHESIA EVALUATION NOTE : 1970 Procedure Summary Date: 06/25/22 Room / Location: [facility] [place] Anesthesia Start: 957 Anesthesia Stop: 1130 Procedures: PHACOEMULSIFICATION CATARACT IMPLANT INTRAOCULAR LENS W/O ENDOSCOPIC CYCLOPHOTOCOAGULATION (Right: Eye) REPAIR W/SUTURE IRIS AND CILIARY BODY (Right: Eye) OPHTHALMIC BIOMETRY BY PARTIAL COHERENCE INTERFEROMETRY W/INTRAOCULAR LENS POWER CALCULATION (Right: Eye) Diagnosis: Combined 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 Photopsia (Combined 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 [H25.811]Photopsia [H53.19]) Surgeons: Jonathon Eugene MD Responsible Provider: Florencio De La Fuente MD Anesthesia Type: MAC ASA Status: 3 Anesthesia Type: MAC Last Vitals Vitals Value Taken Time BP 141/80 06/25/22 1148 Temp 36.3 ?C (97.3 ?F) 06/25/22 1136 Pulse 75 06/25/22 1200 Resp 16 06/25/22 1148 SpO2 100 % 06/25/22 1148 Post Anesthesia Patient Status Patient Evaluation: bedside. Anticipated Disposition: phase 2 then home. Neurological Status: aware and responsive. Pulmonary Status: breathing comfortably on room air Airway Control: returned to baseline unsupported. Cardiovascular Status: stable. Pain Management: clinically adequate Postoperative Hydration: acceptable. Intraoperative Events: no significant anesthesia events Post Operative Nausea/Vomiting Status: no significant post operative nausea or vomiting Anesthetic Observations: Recommendation: continue current plan of care. Anesthesia Observations No Documentation SIGNATURE: Florencio De La Fuente MD PATIENT NAME: Allie Lynn DATE: June 25, 2022 TIME: 12:00 PM CSN: [id number] [facility] ANES PRE-OPon 06-25-2022 ANES PRE-OP HNO ID: [id number] Author: Florencio De La Fuente MD Service: Anesthesiology Author Type: Anesthesiologist Type: Anesthesia Preprocedure Evaluation Filed: 06/25/2022 9:58 AM Note Text: ANESTHESIOLOGY DAY OF SURGERY NOTE : 1970 Procedure Information Date/Time: 06/25/22 1015 Procedures: PHACOEMULSIFICATION CATARACT IMPLANT INTRAOCULAR LENS W/O ENDOSCOPIC CYCLOPHOTOCOAGULATION (Right: Eye) REPAIR W/SUTURE IRIS AND CILIARY BODY (Right: Eye) OPHTHALMIC BIOMETRY BY PARTIAL COHERENCE INTERFEROMETRY W/INTRAOCULAR LENS POWER CALCULATION (Right: Eye) Location: [place] [id number] [place] [facility] [place]: Jonathon Eugene MD Estimated body mass index is 30.27 kg/m? as calculated from the following: Height as of this encounter: 152.4 cm (5'). Weight as of this encounter: 70.3 kg (155 lb). Most recent hematocrit and potassium results: Hematocrit 40.2 05/03/2022 Potassium 3.8 08/15/2021 Relevant Problems CARDIO (+) Carotid atherosclerosis (+) Choroidal neovascular membrane (+) Hypertension (+) PAD (peripheral artery disease) (HCC) Other (+) Patellar tendinitis I - PHYSICAL EVALUATION AIRWAY Patient intubated: No. Tracheostomy tube not present Mallampati: II. TM distance: >3 FB. Neck ROM: full ROM without neurological symptoms. Mouth opening: adequate. Short neck: no. Thick neck: no DENTAL Normal dental observations. Dental findings: teeth intact. Additional exam findings: no II - ANESTHESIA PLAN ASA Score: 3 Anesthetic Plan: MAC The patient is not a current smoker. NPO Status: adequate Monitoring plan: standard ASA. Postoperative analgesic plan: parenteral or oral opioids and multimodal analgesia. Patient / Surrogate agrees to blood products: blood products not planned DNR status not reviewed with patient and/or family prior to surgery. Significant changes in the patient condition since the History and Physical, not otherwise documented in primary service progress note: no. Potential Anesthesia issues that may suggest increased risk of complications or contraindication to planned procedure: none. Vitals Value Taken Time BP 140/84 06/25/22943 Pulse 92 06/25/22943 Resp 16 06/25/22943 Temp 37.3 ?C (99.1 ?F) 06/25/22943 SpO2 97 % 06/25/22943 Facility-Administered Medications as of 06/25/2022 Medication Dose Route Frequency - sodium chloride 0.9 % (flush) 2-10 mL (BD POSIFLUSH) 2-10 mL INTRAVENOUS q 12 H - [COMPLETED] cyclopentolate 1%-tropicamide 1%-PHENYLephrine 2.5% ophthalmic drops 1 Drop RIGHT EYE q 3 min Outpatient Medications as of 06/25/2022 Medication Sig - cyclobenzaprine (FLEXERIL) 10 mg tablet Take 1 tablet by mouth twice daily as needed. - conjugated estrogens-medroxyPROGES TERone (PREMPRO) 0.45-1.5 mg per tablet Take 1 tablet by mouth once daily. - omeprazole (PRILOSEC) 20 mg capsule Take 1 capsule by mouth once daily. - lisinopril-hydroCHLOROt hiazide (PRINZIDE,ZESTORETIC) 10-12.5 mg per tablet Take 1 tablet by mouth once daily. - atorvastatin (LIPITOR) 40 mg tablet Take 1 tablet by mouth once daily. - meloxicam (MOBIC) 15 mg tablet Take 1 tablet by mouth once daily. - aspirin, enteric coated (ASPIR-LOW) 81 mg EC tablet Take 1 tablet by mouth once daily. - bacitracin-polymyxin b (POLYSPORIN) ophthalmic ointment Use 1 application in the left eye three times daily. (Patient not taking: No sig reported) - [] oxymetazoline, PF, (UPNEEQ, PF,) 0.1 % dpet Use 1 Drop in eyes once daily. (Patient not taking: Reported on 05/03/2022) I have interviewed and examined the patient. I have reviewed the medical record and/or the pre-anesthesia evaluation, pertinent labs, and test results. This contains updated information obtained within 48 hours of Surgery/Procedure. SIGNATURE: Florencio De La Fuente MD PATIENT NAME: Allie Lynn DATE: June 25, 2022 TIME: 9:57 AM CSN: [id number] [facility] HISTORY PHYSICALon HISTORY PHYSICAL HNO ID: [id number] Author: Jonathon Eugene MD Service: Ophthalmology Author Type: Physician Type: HANDP Filed: 06/25/2022 10:03 AM Note Text: UPDATED HISTORY AND PHYSICAL EXAMINATION SERVICE DATE: 06/25/2022 SERVICE TIME: 10:03 AM PHYSICAL EXAM MUST BE COMPLETED ON ADMISSION The History and Physical (completed in the past 30 days) has been reviewed and the patient has been examined. The contents accurately reflect the patient's condition with the following additions or revisions since the HANDP was completed. Examination indicates no changes. This HANDP can be found in the attached. SIGNATURE: Jonathon Eugene MD PATIENT NAME: Allie Lynn DATE: June 25, 2022 TIME: 10:02 AM [facility] OPERATIVE NOon 06-25-2022 OPERATIVE NO HNO ID: [id number] Author: Jonathon Eugene MD Service: Ophthalmology Author Type: Physician Type: Operative Report Filed: 06/25/2022 11:35 AM Note Text: OPERATIVE/PROCEDURE REPORT OPHTHAMOLOGY LOG ID: [id number] SURGERY/PROCEDURE DATE: 06/25/2022 INCISION/PROCEDURE START TIME: 10:13 AM INCISION CLOSE/PROCEDURE END TIME: 11:27 AM SURGEON(S)/PROCEDURALIS T(S) AND SIZING MACHINE TENDER(S): Surgeon(s) and Role: * Jonathon Eugene MD - Primary PROCEDURE(S): Procedure(s) (LRB): PHACOEMULSIFICATION CATARACT IMPLANT INTRAOCULAR LENS W/O ENDOSCOPIC CYCLOPHOTOCOAGULATION (Right) REPAIR W/SUTURE IRIS AND CILIARY BODY (Right) OPHTHALMIC BIOMETRY BY PARTIAL COHERENCE INTERFEROMETRY W/INTRAOCULAR LENS POWER CALCULATION (Right) PREOPERATIVE DIAGNOSIS: Combined form of age-related cataract, Right eye. Photopsia right eye. Large iridotomy right eye POST-OP/POST-PROCEDURE DIAGNOSIS: Same as Preop OPERATIVE INDICATIONS: Blurred vision and glare right eye affecting activities of daily living (ADLs) ANESTHESIA: Monitored Anesthesia Care PROCEDURE DETAILS: The patient was transferred to the operating room where the eye was prepared and draped in sterile fashion. An eyelid speculum was placed and a paracentesis was performed. Preservative-free lidocaine 1% and viscoelastic were injected into the anterior chamber. A keratome was used to perform a clear corneal incision. Capsulorrhexis and hydrodissection were performed. The lens nucleus was removed with the phacoemulsification instrument. The residual cortex was removed with the irrigation/aspiration instrument. The capsular bag was filled with viscoelastic, and the above-noted intraocular lens was inserted into the capsular bag. The residual viscoelastic was removed with the irrigation/aspiration instrument. Miochol was injected in the anterior chamber to achieve pupillary constriction. A second paracentesis was created across from the first one. A 10-prolene on CTC-6L needle was passed through the 1st paracentesis, into the iris leaflets, then out of the opposite paracentesis and tied using a Siepser knot technique. This one done again to achieve adequate narrowing of the large peripheral iridotomy that was responsible for glare. The anterior chamber was reformed with balanced salt solution and the corneal wounds were hydrated. A water-tight corneal closure was achieve. No suture(s) were placed in the wound. Intracameral injection of antibiotic was performed. Topical steroid medication was applied to the operated eye and it was covered with a protective shield. The patient was transferred to the recovery room in stable condition. ESTIMATED BLOOD LOSS: Minimal unless noted here. SPECIMENS: * No specimens in log * IMPLANTABLE DEVICES: Implant Name Type Inv. Item Serial No. Communication Instructor Lot No. LRB No. Used Action Model No. LENS ACRYSOF ULTRASERT +14.5 DIOPTER ACRYLIC IOL 1 PIECE FOLDABLE UV BLUE - [id number] Intraocular Lens LENS ACRYSOF ULTRASERT +14.5 DIOPTER ACRYLIC IOL 1 PIECE FOLDABLE UV BLUE [id number] LEONARDOPulse SURGICAL Right 1 Implanted [id number] Ocular Co-Morbidities: Yes Intra-operative Complications None I/primary surgeon/proceduralist performed the entire procedure. SIGNATURE: Jonathon Eugene MD PATIENT NAME: Allie Lynn DATE: June 25, 2022 TIME: 11:31 AM PAGER/CONTACT #: [phone] [facility] ESR Westergren method (Bld) [Velocity]on 05-04-2022 ESR (Bld) [Velocity] 10 mm/h 0 - 20 mm/hr [facility] C-REACTIVE PROTEIN (CRP)on 0 05-03-2022 CRP [Mass/Vol] <0.9 mg/dL [facility] RHEUMATOID FACTOR BLon 05-03 Rheumatoid factor Qn <16 IU/mL [facility] No Panel Information [facility] Vital Signs Date Time Vital Sign Value Performing Clinician Faci [facility] 04-22-2025 10:29-0400 Body mass index (BMI) [Ratio] 27.7 kg/m2 Ifeoma Davis MD Work Phone: [facility] 04-22-2025 10:29-0400 Body weight 66.5 kg Ifeoma Davis MD Work Phone: [facility] 04-22-2025 10:29-0400 Diastolic blood pressure 79 mm[Hg] Ifeoma Davis MD Work Phone: [facility] 04-22-2025 10:29-0400 Heart rate 79 /min Ifeoma Davis MD Work Phone: [facility] 04-22-2025 10:29-0400 Respiratory rate 16 /min Ifeoma Davis MD Work Phone: [facility] 04-22-2025 10:29-0400 Systolic blood pressure 129 mm[Hg] Iefoma Davis MD Work Phone: [facility] 04-11-2025 13:09-0400 Body mass index (BMI) [Ratio] 27.53 kg/m2 Aislinn Reyes PA-C Work Phone: [facility] 04-11-2025 13:09-0400 Body temperature 97.2 [degF] Aislinn Reyes PA-C Work Phone: [facility] 04-11-2025 13:09-0400 Body weight 66.1 kg Aislinn Reyes PA-C Work Phone: [facility] 04-11-2025 13:09-0400 Diastolic blood pressure 62 mm[Hg] Aislinn Reyes PA-C Work Phone: [facility] 04-11-2025 13:09-0400 Heart rate 82 /min Aislinn Reyes PA-C Work Phone: [facility] 04-11-2025 13:09-0400 Respiratory rate 20 /min Aislinn Reyes PA-C Work Phone: [facility] 04-11-2025 13:09-0400 SaO2% (BldA) [Mass fraction] 98 % Aislinn Reyes PA-C Work Phone: [facility] 04-11-2025 13:09-0400 Systolic blood pressure 110 mm[Hg] Aislinn Reyes PA-C Work Phone: [facility] 03-24-2025 14:59-0400 Body height 154.9 cm Pac 1 Work Phone: [facility] 03-24-2025 14:59-0400 Body mass index (BMI) [Ratio] 27.78 kg/m2 Pacc 1 Work Phone: [facility] 03-24-2025 14:59-0400 Body weight 66.68 kg Pacc 1 Work Phone: [facility] 03-24-2025 14:59-0400 Diastolic blood pressure 66 mm[Hg] Pacc 1 Work Phone: [facility] 03-24-2025 14:59-0400 Heart rate 80 /min Pacc 1 Work Phone: [facility] 03-24-2025 14:59-0400 Respiratory rate 18 /min Pacc 1 Work Phone: [facility] 03-24-2025 14:59-0400 SaO2% (BldA) [Mass fraction] 96 % Pacc 1 Work Phone: [facility] 03-24-2025 14:59-0400 Systolic blood pressure 108 mm[Hg] Pacc 1 Work Phone: [facility] 12-29-2024 15:08-0400 Body height 154.9 cm Ifeoma Davis MD Work Phone: [facility] 12-29-2024 15:08-0400 Body mass index (BMI) [Ratio] 27.66 kg/m2 Ifeoma Davis MD Work Phone: [facility] 12-29-2024 15:08-0400 Body weight 66.41 kg Ifeoma Davis MD Work Phone: [facility] 12-29-2024 15:08-0400 Diastolic blood pressure 66 mm[Hg] Ifeoma Davis MD Work Phone: [facility] 12-29-2024 15:08-0400 Heart rate 86 /min Ifeoma Davis MD Work Phone: [facility] 12-29-2024 15:08-0400 SaO2% (BldA) [Mass fraction] 97 % Ifeoma Davis MD Work Phone: [facility] 12-29-2024 15:08-0400 Systolic blood pressure 112 mm[Hg] Ifeoma Davis MD Work Phone: [facility] 12-09-2024 13:28-0400 Body height 152.[address] Ifeoma Davis MD Work Phone: [facility] 12-09-2024 13:28-0400 Body mass index (BMI) [Ratio] 29.5 kg/m2 Dr. Ifeoma Davis MD Work Phone: [facility] 12-09-2024 13:28-0400 Body weight 68.[address] Ifeoma Davis MD Work Phone: [facility] 11-24-2024 15:06-0400 Body height 152.[address] Ifeoma Davis MD Work Phone: [facility] 11-03-2024 14:09-0500 Body height 154.9 cm Ifeoma Davis MD Work Phone: [facility] 11-03-2024 14:09-0500 Body mass index (BMI) [Ratio] 29.25 kg/m2 Ifeoma Davis MD Work Phone: [facility] 11-03-2024 14:09-0500 Body weight 70.22 kg Ifeoma Davis MD Work Phone: [facility] 11-03-2024 14:09-0500 Diastolic blood pressure 78 mm[Hg] Ifeoma Davis MD Work Phone: [facility] 11-03-2024 14:09-0500 Heart rate 98 /min Ifeoma Davis MD Work Phone: [facility] 11-03-2024 14:09-0500 SaO2% (BldA) [Mass fraction] 96 % Ifeoma Davis MD Work Phone: [facility] 11-03-2024 14:09-0500 Systolic blood pressure 114 mm[Hg] Ifeoma Davis MD Work Phone: [facility] 10-31-2024 12:58-0500 Body mass index (BMI) [Ratio] 28.74 kg/m2 Chantal Pino APRN.CNP Work Phone: [facility] 10-31-2024 12:58-0500 Body temperature 97.11 [degF] Chantal Pino APRN.HYDROGENATION STILL OPERATOR Work Phone: [facility] 10-31-2024 12:58-0500 Body weight 69 kg Chantal Alvarez MED PEDS.HYDROGENATION STILL OPERATOR Work Phone: [facility] 10-31-2024 12:58-0500 Diastolic blood pressure 88 mm[Hg] Chantal Alvarez MED PEDS.HYDROGENATION STILL OPERATOR Work Phone: [facility] 10-31-2024 12:58-0500 Heart rate 97 /min Chantal Alvarez MED PEDS.HYDROGENATION STILL OPERATOR Work Phone: [facility] 10-31-2024 12:58-0500 Respiratory rate 18 /min Chantal Alvarez MED PEDS.HYDROGENATION STILL OPERATOR Work Phone: [facility] 10-31-2024 12:58-0500 SaO2% (BldA) [Mass fraction] 99 % Chantal Alvarez MED PEDS.HYDROGENATION STILL OPERATOR Work Phone: [facility] 10-31-2024 12:58-0500 Systolic blood pressure 141 mm[Hg] Chantal Alvarez MED PEDS.HYDROGENATION STILL OPERATOR Work Phone: [facility] 10-12-2024 15:14-0500 Body mass index (BMI) [Ratio] 29.78 kg/m2 Ifeoma Davis MD Work Phone: [facility] 10-12-2024 15:14-0500 Body temperature 96.91 [degF] Ifeoma Davis MD Work Phone: [facility] 10-12-2024 15:14-0500 Body weight 71.49 kg Ifeoma Davis MD Work Phone: [facility] 10-12-2024 15:14-0500 Diastolic blood pressure 63 mm[Hg] Ifeoma Davis MD Work Phone: [facility] 10-12-2024 15:14-0500 Heart rate 118 /min Ifeoma Davis MD Work Phone: [facility] 10-12-2024 15:14-0500 Respiratory rate 16 /min Ifeoma Davis MD Work Phone: [facility] 10-12-2024 15:14-0500 SaO2% (BldA) [Mass fraction] 99 % Ifeoma Davis MD Work Phone: [facility] 10-12-2024 15:14-0500 Systolic blood pressure 106 mm[Hg] Ifeoma Davis MD Work Phone: [facility] 10-07-2024 18:25-0500 Body mass index (BMI) [Ratio] 30.41 kg/m2 Calli Zabrina MED PEDS.HYDROGENATION STILL OPERATOR Work Phone: [facility] 10-07-2024 18:25-0500 Body temperature 98.2 [degF] Calli Zabrina MED PEDS.HYDROGENATION STILL OPERATOR Work Phone: [facility] 10-07-2024 18:25-0500 Body weight 73 kg Calli LinaresZabrina MED PEDS.HYDROGENATION STILL OPERATOR Work Phone: [facility] 10-07-2024 18:25-0500 Diastolic blood pressure 62 mm[Hg] Calli HarrellZabrina MED PEDS.HYDROGENATION STILL OPERATOR Work Phone: [facility] 10-07-2024 18:25-0500 Heart rate 103 /min Calli Zabrina MED PEDS.HYDROGENATION STILL OPERATOR Work Phone: [facility] 10-07-2024 18:25-0500 Respiratory rate 16 /min Calli LinaresZabrina MED PEDS.HYDROGENATION STILL OPERATOR Work Phone: [facility] 10-07-2024 18:25-0500 SaO2% (BldA) [Mass fraction] 96 % Calli HarrellZabrina MED PEDS.HYDROGENATION STILL OPERATOR Work Phone: [facility] 10-07-2024 18:25-0500 Systolic blood pressure 124 mm[Hg] Calli Zabrina MED PEDS.HYDROGENATION STILL OPERATOR Work Phone: [facility] 09-29-2024 14:11-0500 Body mass index (BMI) [Ratio] 30.42 kg/m2 Ifeoma Davis MD Work Phone: [facility] 09-29-2024 14:11-0500 Body weight 73.03 kg Ifeoma Davis MD Work Phone: [facility] 09-29-2024 14:11-0500 Diastolic blood pressure 88 mm[Hg] Ifeoma Davis MD Work Phone: [facility] 09-29-2024 14:11-0500 Heart rate 86 /min Ifeoma Davis MD Work Phone: [facility] 09-29-2024 14:11-0500 Respiratory rate 16 /min Ifeoma Davis MD Work Phone: [facility] 09-29-2024 14:11-0500 Systolic blood pressure 138 mm[Hg] Ifeoma Davis MD Work Phone: [facility] 09-24-2024 14:43-0500 Body mass index (BMI) [Ratio] 30.27 kg/m2 Michelle Elsy MED PEDS.HYDROGENATION STILL OPERATOR Work Phone: [facility] 09-24-2024 14:43-0500 Body weight 72.67 kg Michelle Elsy MED PEDS.HYDROGENATION STILL OPERATOR Work Phone: [facility] 09-24-2024 14:43-0500 Diastolic blood pressure 81 mm[Hg] Michelle Elsy MED PEDS.HYDROGENATION STILL OPERATOR Work Phone: [facility] 09-24-2024 14:43-0500 Heart rate 101 /min Michelle Elsy MED PEDS.HYDROGENATION STILL OPERATOR Work Phone: [facility] 09-24-2024 14:43-0500 SaO2% (BldA) [Mass fraction] 98 % Michelle Elsy MED PEDS.HYDROGENATION STILL OPERATOR Work Phone: [facility] 09-24-2024 14:43-0500 Systolic blood pressure 122 mm[Hg] Michelle Elsy MED PEDS.HYDROGENATION STILL OPERATOR Work Phone: [facility] 09-15-2024 10:09-0500 Body mass index (BMI) [Ratio] 29.85 kg/m2 Destiney Mckeon MED PEDS.HYDROGENATION STILL OPERATOR Work Phone: [facility] 09-15-2024 10:09-0500 Body weight 71.67 kg Destiney Billings MED PEDS.HYDROGENATION STILL OPERATOR Work Phone: [facility] 09-15-2024 10:09-0500 Diastolic blood pressure 66 mm[Hg] Destiney Billings MED PEDS.HYDROGENATION STILL OPERATOR Work Phone: [facility] 09-15-2024 10:09-0500 Systolic blood pressure 118 mm[Hg] Destiney Billings MED PEDS.HYDROGENATION STILL OPERATOR Work Phone: [facility] 07-08-2024 17:38-0500 Body mass index (BMI) [Ratio] 28.87 kg/m2 Letty Silva MED PEDS.HYDROGENATION STILL OPERATOR Work Phone: [facility] 07-08-2024 17:38-0500 Body temperature 98.4 [degF] Letty Silva MED PEDS.HYDROGENATION STILL OPERATOR Work Phone: [facility] 07-08-2024 17:38-0500 Body weight 69.3 kg Letty Silva MED PEDS.HYDROGENATION STILL OPERATOR Work Phone: [facility] 07-08-2024 17:38-0500 Diastolic blood pressure 82 mm[Hg] Letty Silva MED PEDS.HYDROGENATION STILL OPERATOR Work Phone: [facility] 07-08-2024 17:38-0500 Heart rate 109 /min Letty Silva MED PEDS.HYDROGENATION STILL OPERATOR Work Phone: [facility] 07-08-2024 17:38-0500 Respiratory rate 18 /min Letty Silva MED PEDS.HYDROGENATION STILL OPERATOR Work Phone: [facility] 07-08-2024 17:38-0500 SaO2% (BldA) [Mass fraction] 97 % Letty Silva MED PEDS.HYDROGENATION STILL OPERATOR Work Phone: [facility] 07-08-2024 17:38-0500 Systolic blood pressure 128 mm[Hg] Letty Silva MED PEDS.HYDROGENATION STILL OPERATOR Work Phone: [facility] 04-11-2024 11:57-0400 Body mass index (BMI) [Ratio] 28.78 kg/m2 Britta ESCUDERO Work Phone: [facility] 04-11-2024 11:57-0400 Body temperature 97.9 [degF] Krislyn Aberegg PA Work Phone: [facility] 04-11-2024 11:57-0400 Body weight 69.1 kg Krislyn Aberegg PA Work Phone: [facility] 04-11-2024 11:57-0400 Diastolic blood pressure 70 mm[Hg] Krislyn Aberegg PA Work Phone: [facility] 04-11-2024 11:57-0400 Heart rate 92 /min Krislyn Aberegg PA Work Phone: [facility] 04-11-2024 11:57-0400 Respiratory rate 16 /min Krislyn Aberegg PA Work Phone: [facility] 04-11-2024 11:57-0400 SaO2% (BldA) [Mass fraction] 97 % Krislyn Aberegg PA Work Phone: [facility] 04-11-2024 11:57-0400 Systolic blood pressure 122 mm[Hg] Krislyn Aberegg PA Work Phone: [facility] 03-31-2024 12:47-0400 Body height 154.9 cm Ifeoma Davis MD Work Phone: [facility] 03-31-2024 12:47-0400 Body mass index (BMI) [Ratio] 28.34 kg/m2 Ifeoma Davis MD Work Phone: [facility] 03-31-2024 12:47-0400 Body weight 68.04 kg Ifeoma Davis MD Work Phone: [facility] 03-31-2024 12:47-0400 Diastolic blood pressure 70 mm[Hg] Ifeoma Davis MD Work Phone: [facility] 03-31-2024 12:47-0400 Heart rate 80 /min Ifeoma Davis MD Work Phone: [facility] 03-31-2024 12:47-0400 Respiratory rate 16 /min Ifeoma Davis MD Work Phone: [facility] 03-31-2024 12:47-0400 Systolic blood pressure 128 mm[Hg] Ifeoma Davis MD Work Phone: [facility] 12-24-2023 12:58-0400 Body height 151.1 cm Destiney Billings MED PEDS.HYDROGENATION STILL OPERATOR Work Phone: [facility] 12-24-2023 12:58-0400 Body mass index (BMI) [Ratio] 30.58 kg/m2 Destiney Helder MED PEDS.HYDROGENATION STILL OPERATOR Work Phone: [facility] 12-24-2023 12:58-0400 Body weight 69.85 kg Destiney Helder MED PEDS.HYDROGENATION STILL OPERATOR Work Phone: [facility] 12-24-2023 12:58-0400 Diastolic blood pressure 82 mm[Hg] Destiney Helder MED PEDS.HYDROGENATION STILL OPERATOR Work Phone: [facility] 12-24-2023 12:58-0400 Systolic blood pressure 126 mm[Hg] Destinye Billings MED PEDS.HYDROGENATION STILL OPERATOR Work Phone: [facility] 11-18-2023 10:09-0400 Body temperature 98.29 [degF] Adriana Young MED PEDS.HYDROGENATION STILL OPERATOR Work Phone: [facility] 11-18-2023 10:09-0400 Body weight 70 kg Adriana Young MED PEDS.HYDROGENATION STILL OPERATOR Work Phone: [facility] 11-18-2023 10:09-0400 Diastolic blood pressure 72 mm[Hg] Adriana Young MED PEDS.HYDROGENATION STILL OPERATOR Work Phone: [facility] 11-18-2023 10:09-0400 Heart rate 80 /min Adriana Young MED PEDS.HYDROGENATION STILL OPERATOR Work Phone: [facility] 11-18-2023 10:09-0400 Respiratory rate 18 /min Adriana Young MED PEDS.HYDROGENATION STILL OPERATOR Work Phone: [facility] 11-18-2023 10:09-0400 SaO2% (BldA) [Mass fraction] 96 % Adriana Vidal MED PEDS.HYDROGENATION STILL OPERATOR Work Phone: [facility] 11-18-2023 10:09-0400 Systolic blood pressure 124 mm[Hg] Adriana King MURTAZA.HYDROGENATION STILL OPERATOR Work Phone: [facility] 05-30-2023 14:00-0400 Diastolic blood pressure 81 mm[Hg] Andry Connelly MD Work Phone: [facility] 05-30-2023 14:00-0400 Heart rate 81 /min Andry Connelly MD Work Phone: [facility] 05-30-2023 14:00-0400 Respiratory rate 16 /min Andry Connelly MD Work Phone: [facility] 05-30-2023 14:00-0400 SaO2% (BldA) [Mass fraction] 99 % Andry Connelly MD Work Phone: [facility] 05-30-2023 14:00-0400 Systolic blood pressure 126 mm[Hg] Andry Connelly MD Work Phone: [facility] 05-30-2023 13:38-0400 Body temperature 98.1 [degF] Andry Connelly MD Work Phone: [facility] 05-30-2023 12:42-0400 Body height 152.4 cm Andry Connelly MD Work Phone: [facility] 05-30-2023 12:42-0400 Body mass index (BMI) [Ratio] 30.66 kg/m2 Andry Connelly MD Work Phone: [facility] 05-30-2023 12:42-0400 Body weight 71.22 kg Andry Connelly MD Work Phone: [facility] 05-21-2023 11:22-0400 Body height 149.9 cm Virginia Avalos PA-C Work Phone: [facility] 05-21-2023 11:22-0400 Body temperature 98.4 [degF] Virginia Denbow PA-C Work Phone: [facility] 05-21-2023 11:22-0400 Body weight 73.94 kg Virginia Denbow PA-C Work Phone: [facility] 05-21-2023 11:22-0400 Diastolic blood pressure 68 mm[Hg] Virginia Denbow PA-C Work Phone: [facility] 05-21-2023 11:22-0400 Heart rate 98 /min Virginia Denbow PA-C Work Phone: [facility] 05-21-2023 11:22-0400 Respiratory rate 12 /min Virginia Denbow PA-C Work Phone: [facility] 05-21-2023 11:22-0400 SaO2% (BldA) [Mass fraction] 99 % Virginia Denbow PA-C Work Phone: [facility] 05-21-2023 11:22-0400 Systolic blood pressure 124 mm[Hg] Virginia Denbow PA-C Work Phone: [facility] 04-30-2023 12:59-0400 Body height 149.9 cm Cande Kalka PA-C Work Phone: [facility] 04-30-2023 12:59-0400 Body weight 73.03 kg Cande Kalka PA-C Work Phone: [facility] 04-30-2023 12:59-0400 Diastolic blood pressure 72 mm[Hg] Cande Kalka PA-C Work Phone: [facility] 04-30-2023 12:59-0400 Heart rate 94 /min Cande Kalka PA-C Work Phone: [facility] 04-30-2023 12:59-0400 Systolic blood pressure 122 mm[Hg] Cande Kalka PA-C Work Phone: [facility] 10-16-2022 12:58-0500 Body height 152.4 cm Ifeoma Davis MD Work Phone: [facility] 10-16-2022 12:58-0500 Body temperature 97.81 [degF] Ifeoma Davis MD Work Phone: [facility] 10-16-2022 12:58-0500 Body weight 71.67 kg Ifeoma Davis MD Work Phone: [facility] 10-16-2022 12:58-0500 Diastolic blood pressure 70 mm[Hg] Ifeoma Davis MD Work Phone: [facility] 10-16-2022 12:58-0500 Heart rate 102 /min Ifeoma Davis MD Work Phone: [facility] 10-16-2022 12:58-0500 Respiratory rate 12 /min Ifeoma Davis MD Work Phone: [facility] 10-16-2022 12:58-0500 SaO2% (BldA) [Mass fraction] 97 % Ifeoma Davis MD Work Phone: [facility] 10-16-2022 12:58-0500 Systolic blood pressure 120 mm[Hg] Ifeoma Davis MD Work Phone: [facility] 06-25-2022 11:48-0400 Diastolic blood pressure 80 mm[Hg] Jonathon Eugene MD Work Phone: [facility] 06-25-2022 11:48-0400 Respiratory rate 16 /min Jonathon Eugene MD Work Phone: [facility] 06-25-2022 11:48-0400 SaO2% (BldA) [Mass fraction] 100 % Jonathon Eugene MD Work Phone: [facility] 06-25-2022 11:48-0400 Systolic blood pressure 141 mm[Hg] Jonathon Eugene MD Work Phone: [facility] 06-25-2022 11:36-0400 Body temperature 97.3 [degF] Jonathon Eugene MD Work Phone: [facility] 06-25-2022 09:44-0400 Body height 152.4 cm Jonathon Eugene MD Work Phone: [facility] 06-25-2022 09:44-0400 Body weight 70.31 kg Jonathon Eugene MD Work Phone: [facility] 06-25-2022 09:44-0400 Heart rate 92 /min Jonathon Eugene MD Work Phone: [facility] 06-20-2022 12:40-0400 Body height 152.4 cm Charlene Grossman MD Work Phone: [facility] 06-20-2022 12:40-0400 Body weight 70.31 kg Charlene Grossman MD Work Phone: [facility] 06-20-2022 12:40-0400 Diastolic blood pressure 70 mm[Hg] Charlene Grossman MD Work Phone: [facility] 06-20-2022 12:40-0400 Heart rate 88 /min Charlene Grossman MD Work Phone: [facility] 06-20-2022 12:40-0400 Respiratory rate 18 /min Charlene Grossman MD Work Phone: [facility] 06-20-2022 12:40-0400 SaO2% (BldA) [Mass fraction] 98 % Charlene Grossman MD Work Phone: [facility] 06-20-2022 12:40-0400 Systolic blood pressure 125 mm[Hg] Charlene Grossman MD Work Phone: [facility] 12-25-2021 13:03-0400 Body height 152.4 cm Ifeoma Davis MD Work Phone: [facility] 12-25-2021 13:03-0400 Body temperature 98.49 [degF] Ifeoma Davis MD Work Phone: [facility] 12-25-2021 13:03-0400 Body weight 73.03 kg Ifoema Davis MD Work Phone: [facility] 12-25-2021 13:03-0400 Diastolic blood pressure 76 mm[Hg] Ifeoma Davis MD Work Phone: [facility] 12-25-2021 13:03-0400 Heart rate 100 /min Ifeoma Davis MD Work Phone: [facility] 12-25-2021 13:03-0400 Respiratory rate 12 /min Ifeoma Davis MD Work Phone: [facility] 12-25-2021 13:03-0400 SaO2% (BldA) [Mass fraction] 97 % Ifeoma Davis MD Work Phone: [facility] 12-25-2021 13:03-0400 Systolic blood pressure 132 mm[Hg] Ifeoma Davis MD Work Phone: [facility] 12-04-2021 13:11-0400 Body height 152.4 cm Destiney Helder MED PEDS.HYDROGENATION STILL OPERATOR Work Phone: [facility] 12-04-2021 13:11-0400 Body weight 74.39 kg Destiney Helder MED PEDS.HYDROGENATION STILL OPERATOR Work Phone: [facility] 12-04-2021 13:11-0400 Diastolic blood pressure 72 mm[Hg] Destiney Billings MED PEDS.HYDROGENATION STILL OPERATOR Work Phone: [facility] 12-04-2021 13:11-0400 Systolic blood pressure 120 mm[Hg] Destiney Billings MED PEDS.HYDROGENATION STILL OPERATOR Work Phone: [facility] Encounters Encounter Date Encounter Type Care Provider Facility Start: 05-17-2025 End: 05-17-2025 Telephone encounter Aislinn Reyes PA-C Work Phone: Pulmonary Medicine Comment on above: Refill Request Start: 05-07-2025 End: 05-07-2025 ambulatory [facility] Facility:[facility] Start: 04-28-2025 End: 04-29-2025 Telephone encounter Ifeoma Davis MD Work Phone: [facility] [place] Start: 04-22-2025 End: 04-22-2025 Telephone encounter Ifeoma Davis MD Work Phone: [facility] [place] Comment on above: Medication Problem Start: 04-22-2025 End: 04-22-2025 ambulatory [facility] Facility:[facility] Start: 04-22-2025 End: 04-22-2025 Office outpatient visit 25 minutes Ifeoma Davis MD Work Phone: [facility] [place] Comment on above: Intertrigo (Primary Dx); Status post glaucoma surgery; Primary hypertension; DAYSI (obstructive sleep apnea); PXE (pseudoxanthoma elasticum); Poison boo dermatitis Start: 04-20-2025 End: 04-20-2025 [facility] Facility:[facility] Start: 04-20-2025 End: 04-20-2025 Postop follow up visit related to original px Cynthia Ramos MD Work Phone: [facility] Comment on above: Follow-up examinatio n after eye surgery (Primary Dx); Secondary glaucoma, indeterminate stage, bilateral Start: 04-16-2025 End: 04-16-[address] Edgar Beltran MD -[facility] Start: 04-16-2025 End: 04-16-[address] Ifeoma Davis MD Work Phone: -[facility] Start: 04-11-2025 End: 04-11-2025 Patient encounter procedure Aislinn Reyes PA-C Work Phone: [facility] [place] Comment on above: Viral URI with cough (Primary Dx) Start: 04-11-2025 End: 04-11-2025 ambulatory [facility] Facility:[facility] Start: 04-03-2025 End: 04-03-2025 Telephone encounter Reynaldo Alford MD Work Phone: Ophthalmology Start: 04-02-2025 End: 04-02-2025 ambulatory [facility] Facility:[facility] Start: 04-02-2025 End: 04-02-2025 Patient encounter procedure Adriana Lund MD Work Phone: Ophthalmology Comment on above: Follow-up examinatio n after eye surgery (Primary Dx) Start: 03-31-2025 End: 03-31-2025 Telephone encounter Ifeoma Davis MD Work Phone: [facility] [place] Comment on above: Medication Problem Refill Request Start: 03-30-2025 End: 03-31-2025 Telephone encounter Adriana Lund MD Work Phone: Ophthalmology Comment on above: Tearing OS Start: 03-26-2025 End: 03-26-2025 Telephone encounter Brittaney Mckeon MD Work Phone: Ophthalmology Start: 03-25-2025 End: 03-25-2025 ambulatory [facility] Facility:[facility] Start: 03-24-2025 Encounter for other preprocedural examination IFEOMA DAVIS [facility] Start: 03-24-2025 End: 03-24-2025 ambulatory [facility] Facility:[facility] Start: 03-24-2025 End: 03-24-2025 Admission to establishment [facility] Work Phone: Pre Anesthesia Start: 03-24-2025 End: 03-24-2025 Anesthesia consultation [facility] Work Phone: Pre Anesthesia Comment on above: Pre-operative examin ation (Primary Dx); Primary hypertension; Mixed hyperlipidemia; PAD (peripheral artery disease); Benign paroxysmal positional vertigo of right ear; DAYSI (obstructive sleep apnea); Anxiety and depression; Blindness right eye category 3, blindness left eye category 4; Secondary glaucoma, indeterminate stage, bilateral; PXE (pseudoxanthoma elasticum); VHD (valvular heart disease) Start: 03-24-2025 End: 03-24-2025 Preprocedural examination done [facility] [place] 1 Work Phone: [facility] Work Phone: Start: 03-24-2025 End: 03-24-2025 Telephone encounter Janet Lowery MD Work Phone: Ophthalmology Comment on above: Patient Question Start: 03-23-2025 End: 03-23-2025 Telephone encounter Cynthia Ramos MD Work Phone: [facility] Comment on above: Appointment (Urgent issue.) Start: 03-23-2025 End: 03-23-2025 Office consultation new/estab patient 60 min Janet Lowery MD Work Phone: Ophthalmology Comment on above: Leaking of conjuncti rah drainage bleb (Primary Dx) Start: 03-23-2025 End: 03-23-2025 ambulatory [facility] Facility:[facility] Start: 03-16-2025 End: 03-19-2025 ambulatory Ifeoma Davis MD Work Phone: Internal Medicine [place] [id number] Start: 03-10-2025 End: 03-10-[address] Edgar Beltran MD -[facility] Start: 03-10-2025 End: 03-10-[address] Ifeoma Davis MD Work Phone: -[facility] Start: 03-02-2025 End: 03-02-2025 Nursing evaluation of patient and report Mi Nurse Work Phone: [facility] [place] Comment on above: Immunization due (Pr imary Dx) Start: 03-02-2025 End: 03-02-2025 [facility] Facility:[facility] Start: 03-01-2025 End: 03-02-2025 Telephone encounter Ifeoma Davis MD Work Phone: [facility] [place] Comment on above: Orders Start: 02-25-2025 End: 02-25-2025 Telephone encounter Ifeoma Davis MD Work Phone: [facility] [place] Comment on above: TDAP order Start: 01-12-2025 End: 01-13-2025 Telephone encounter Michelle Chin APRN.HYDROGENATION STILL OPERATOR Work Phone: Neurology Comment on above: DME Order Request Start: 12-30-2024 End: 12-30-2024 Telephone encounter Michelle Chin APRN.HYDROGENATION STILL OPERATOR Work Phone: Neurology Comment on above: Results Start: 12-29-2024 End: 12-29-2024 Office outpatient visit 25 minutes Ifeoma Davis MD Work Phone: [facility] [place] Comment on above: Primary hypertension (Primary Dx); Depression, unspecified depression type; Trigger finger, unspecified finger, unspecified laterality; Hypokalemia; Anxiety; Legally blind; Sleep apnea, unspecified type Start: 12-29-2024 End: 12-29-2024 ambulatory IFEOMA DAVIS Facility:[facility] Start: 12-23-2024 End: 12-23-2024 Refill Ifeoma Davis MD Work Phone: [facility] [place] Comment on above: Refill Request Start: 12-17-2024 End: 12-17-2024 Follow-up encounter Michelle Chin APRN.HYDROGENATION STILL OPERATOR Work Phone: Neurology Comment on above: Results Start: 12-09-2024 End: 12-09-[address] Phillip Pozo DO -[facility] Work Phone: Start: 12-09-2024 End: 12-09-2024 ambulatory Phillip Pozo Facility:[facility] Start: 12-07-2024 End: 12-08-2024 Telephone encounter Ifeoma Davis MD Work Phone: [facility] [place] Comment on above: Patient Question Start: 12-01-2024 End: 12-07-2024 Telephone encounter Michelle Chin APRN.HYDROGENATION STILL OPERATOR Work Phone: Neurology Comment on above: Results Start: 11-24-2024 End: 11-24-[address] Ifeoma Davis MD Work Phone: [facility] Work Phone: Start: 11-24-2024 End: 11-24-2024 Patient encounter procedure Allie Prakash -[facility] [place] Work Phone: Start: 11-24-2024 End: 11-24-[address] Edgar Beltran MD -[facility] Start: 11-24-2024 End: 11-24-2024 ambulatory Edgar Beltran Facility:[facility] Start: 11-24-2024 End: 11-24-2024 ambulatory [facility] Facility:[facility] Start: 11-20-2024 End: 11-20-2024 Telephone encounter David Anna APRN.CNP Work Phone: [facility] [place] Comment on above: Results, Lab Start: 11-19-2024 End: 11-19-2024 ambulatory [facility] Facility:[facility] Start: 11-19-2024 End: 11-19-2024 Patient encounter procedure David Anna APRN.CNP Work Phone: [facility] [place] Comment on above: Hypertension, unspec ified type (Primary Dx); Dry mouth; Depression, unspecified depression type; Anxiety; Other fatigue; DAYSI (obstructive sleep apnea) Start: 11-17-2024 End: 12-18-2024 Patient encounter procedure Sleep Lab [facility] Comment on above: Snoring; Excessive daytime sleepiness; Non-restorative sleep; PLMD (periodic limb movement disorder); Primary hypertension Start: 11-17-2024 End: 11-17-2024 ambulatory [facility] Facility:[facility] Start: 11-05-2024 End: 11-05-2024 Follow-up encounter Ifeoma Davis MD Work Phone: Geriatrics Start: 11-03-2024 End: 11-03-2024 [facility] Facility:[facility] Start: 11-03-2024 End: 11-03-2024 Office outpatient visit 25 minutes Ifeoma Davis MD Work Phone: [facility] [place] Comment on above: Vitamin D deficiency (Primary Dx); Dry mouth; Vitamin B12 deficiency; Iron deficiency; Other fatigue Start: 11-02-2024 End: 11-02-2024 Follow-up encounter Britta ESCUDERO Work Phone: [facility] Start: 10-31-2024 End: 10-31-2024 ambulatory [facility] Facility:[facility] Start: 10-31-2024 End: 10-31-2024 Patient encounter procedure Chantal Pino APRN.CNP Work Phone: [facility] Comment on above: Dysuria (Primary Dx) ; Acute lower UTI Start: 10-22-2024 End: 12-22-2024 Follow-up encounter Destiney Mckeon APRN.CNP Work Phone: OB/Gynecology Start: 10-21-2024 End: 10-21-2024 ambulatory [facility] Facility:[facility] Start: 10-21-2024 Encounter for gynecological examination (general) (routine) without abnormal findings [facility] Start: 10-21-2024 End: 10-21-2024 Patient encounter status Screen [facility] Start: 10-21-2024 End: 10-21-2024 Subsequent hospital visit by physician Screen Mammo [facility]amm[facility] Comment on above: Encounter for gyneco logical examination (general) (routine) without abnormal findings [Z01.419] Start: 10-13-2024 End: 10-13-2024 ambulatory CYNTHIA RAMOS Facility:[facility] Start: 10-13-2024 End: 10-13-2024 Office outpatient visit 15 minutes Cynthia Ramos MD Work Phone: [facility] Comment on above: Secondary glaucoma, indeterminate stage, bilateral (Primary Dx); Angioid streaks of macula; Pseudoxanthoma elasticum Start: 10-12-2024 End: 10-12-2024 [facility] Facility:[facility] Start: 10-12-2024 End: 10-12-2024 Office outpatient visit 25 minutes Ifeoma Davis MD Work Phone: [facility] [place] Comment on above: Anxiety (Primary Dx) ; Screening for depression; Encounter for screening examination for other mental health and behavioral disorders; Dry mouth; Insomnia, unspecified type; Current moderate episode of major depressive disorder without prior episode ([facility]) Start: 10-07-2024 End: 10-07-2024 ambulatory [facility] Facility:[facility] Start: 10-07-2024 End: 10-07-2024 Patient encounter procedure Calli Duvall APRN.CNP Work Phone: [facility] [place] Comment on above: Memory impairment (P rimary Dx); Dry mouth; Depression, unspecified depression type Start: 10-07-2024 End: 10-12-2024 Telephone encounter Ifeoma Davis MD Work Phone: [facility] [place] Comment on above: Future Appointment Patient Question Start: 09-29-2024 End: 09-29-2024 ambulatory [facility] Facility:[facility] Start: 09-29-2024 End: 09-29-2024 Office outpatient visit 25 minutes Ifeoma Davis MD Work Phone: [facility] [place] Comment on above: Depression, unspecif ied depression type (Primary Dx); Encounter for immunization; Insomnia, unspecified type Start: 09-25-2024 End: 04-10-2025 Telephone encounter Michelle Chin APRN.CNP Work Phone: Neurology Comment on above: Manager Paper - O ther Start: 09-24-2024 End: 09-24-2024 Patient encounter procedure Michelle Chin APRN.HYDROGENATION STILL OPERATOR Work Phone: Neurology Comment on above: Excessive daytime sl eepiness (Primary Dx); Non-restorative sleep Start: 09-24-2024 End: 09-24-2024 [facility] Facility:[facility] Start: 09-15-2024 End: 09-15-2024 [facility] Facility:[facility] Start: 09-15-2024 End: 09-15-2024 Patient encounter procedure Destiney Mckeon APRN.CNP Work Phone: OB/Gynecology Comment on above: Vasomotor symptoms d ue to menopause (Primary Dx) Start: 09-08-2024 End: 09-08-2024 Refill Ifeoma Davis MD Work Phone: [facility] [place] Comment on above: Refill Request Start: 08-12-2024 End: 04-13-2025 Telephone encounter Ifeoma Davis MD Work Phone: [facility] [place] Comment on above: Patient Update Start: 08-10-2024 End: 08-10-2024 ambulatory Jon Ross MA [facility] [place] Start: 08-10-2024 End: 08-10-2024 Patient encounter procedure Jon Ross MA [facility] Comment on above: Population Health Na vigation Outreach ([facility]) Start: 07-27-2024 End: 08-05-2024 Telephone encounter Ifeoma Davis MD Work Phone: Family [facility] Comment on above: Results Start: 07-22-2024 End: 07-22-2024 ambulatory [facility] Facility:[facility] Start: 07-15-2024 End: 07-15-2024 ambulatory [facility] [place] Start: 07-10-2024 End: 07-10-2024 Telephone encounter Ifeoma Davis MD Work Phone: [facility] [place] Comment on above: Fax Request Start: 07-09-2024 End: 07-09-2024 Telephone encounter Adriana Vidal APRN.HYDROGENATION STILL OPERATOR Work Phone: [facility] Comment on above: Results Start: 07-08-2024 End: 07-08-2024 ambulatory [facility] Facility:[facility] Start: 07-08-2024 End: 07-08-2024 Patient encounter procedure Letty Silva MED PEDS.HYDROGENATION STILL OPERATOR Work Phone: [facility] Comment on above: Close exposure to [place] VID-19 virus (Primary Dx) Start: 07-07-2024 End: 07-09-2024 Refill Ifeoma Davis MD Work Phone: Family [facility] Comment on above: Refill Request Orders Start: 06-29-2024 End: 06-30-2024 Refill Ifeoma Davis MD Work Phone: Family [facility] Comment on above: Refill Request Start: 06-15-2024 End: 06-15-2024 ambulatory Chana Bridges MA [facility] Start: 06-15-2024 End: 06-15-2024 Patient encounter procedure Chana Bridges MA [facility] Comment on above: Population Health Na vigation Outreach (Med Adherence) Start: 06-12-2024 End: 06-12-2024 ambulatory Jon Ross MA [facility] [place] Start: 06-12-2024 End: 06-12-2024 Patient encounter procedure [facility] [place] Comment on above: Population Health Na vigation Outreach ([facility] [place]) Start: 06-04-2024 End: 06-04-2024 ambulatory IFEOMA DAVIS Facility:[facility] Start: 05-29-2024 End: 05-29-2024 ambulatory Marvin Mota [facility] [place] Start: 05-29-2024 End: 05-29-2024 Patient encounter procedure [facility] [place] Comment on above: Population Health Na vigation Outreach (Med adherence ) Start: 05-14-2024 End: 06-29-2024 Telephone encounter Ifeoma Davis MD Work Phone: [facility] [place] Comment on above: Patient Question Start: 05-06-2024 End: 05-11-2024 Telephone encounter Cynthia Ramos MD Work Phone: [facility] Comment on above: Letter Start: 05-01-2024 End: 05-06-2024 Telephone encounter Cynthia Ramos MD Work Phone: [facility] Comment on above: Letter Start: 2024 End: 2024 Refill Ifeoma Davis MD Work Phone: [facility] [place] Comment on above: Refill Request Start: 04-13-2024 Telephone encounter Cynthia cheatham MD Work Phone: [facility] Comment on above: Patient Update Start: 04-11-2024 End: 04-11-2024 Patient encounter procedure Britta ESCUDERO Work Phone: [facility] Comment on above: Allergic contact roman matitis due to plants, except food (Primary Dx) Start: 04-02-2024 Telephone encounter Ifeoma deluna MD Work Phone: [facility] [place] Comment on above: Results Start: 03-31-2024 End: 03-31-2024 Office outpatient visit 25 minutes Ifeoma Davis MD Work Phone: [facility] [place] Comment on above: Annual wellness visi t (Primary Dx); 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 injury; Primary hypertension; Trigger finger, unspecified finger, unspecified laterality; Special screening examination for viral disease; Screening for HIV (human immunodeficiency virus); Legally blind; Mixed hyperlipidemia Start: 03-31-2024 End: 03-31-2024 Patient encounter procedure Ifeoma Davis MD Work Phone: [facility] Start: 03-17-2024 ambulatory Ifeoma Sampson Work Phone: Internal [place] [id number] Start: 02-18-2024 End: 02-18-2024 Office outpatient visit 15 minutes Cynthia Ramos MD Work Phone: [facility] Comment on above: Secondary glaucoma, indeterminate stage, bilateral (Primary Dx); Pseudoxanthoma elasticum; Angioid streaks of macula; Pseudophakia of both eyes; Legally blind Start: 01-01-2024 Refill David Anna APRN, .CNP Work Phone: [facility] [place] Comment on above: Refill Request Start: 12-25-2023 Telephone encounter David Anna APRN.CNP Work Phone: [facility] [place] Comment on above: Medication Request Start: 12-24-2023 End: 12-24-2023 Patient encounter procedure Destiney Mckeon APRN.CNP Work Phone: OB/Gynecology Comment on above: Encounter for gyneco logical examination (general) (routine) without abnormal findings (Primary Dx); Encounter for screening for human papillomavirus (HPV); Pap smear for cervical cancer screening; Encounter for screening mammogram for breast cancer Start: 12-24-2023 End: 12-24-2023 Patient encounter status Destiney Mckeon APRN.CNP Work Phone: [facility] Start: 12-04-2023 End: 12-04-[address] Ifeoma Davis Work Phone: [facility] Work Phone: Start: 12-04-2023 End: 12-04-[address] Ifeoma Davis Work Phone: [facility] Work Phone: Start: 11-18-2023 End: 11-18-2023 Patient encounter procedure Adriana Vidal APRN.HYDROGENATION STILL OPERATOR Work Phone: [facility] Comment on above: Bacterial sinusitis (Primary Dx) Start: 11-13-2023 Refill Ifeoma Sampson Work Phone: [facility] [place] Comment on above: Refill Request Start: 11-06-2023 End: 11-06-[address] Ifeoma Davis Work Phone: [facility] Work Phone: Start: 10-25-2023 ambulatory Alessandra Lora [facility] [place] Comment on above: Population Health Na vigation Outreach ([place] [facility]) Start: 10-11-2023 Documentation procedure Mammog lien Coordinator [facility] Start: 10-11-2023 Letter encounter Mammography Coordinator [facility] Department Start: 10-10-2023 End: 10-10-2023 Subsequent hospital visit by physician Screen Mammo [facility]amm[facility] Comment on above: Encounter for screen ing mammogram for breast cancer [Z12.31] Start: 10-08-2023 Telephone encounter Ifeoma deluna MD Work Phone: [facility] [place] Comment on above: Patient Update Start: 10-04-2023 ambulatory Mary Salinas [facility] [place] Comment on above: Population Health Na vigation Outreach ([place] [facility] Gaps ) Start: 07-23-2023 Refill Virginia Avalos PA-C Work Phone: [facility] [place] Comment on above: Refill Request Start: 06-25-2023 Refill Ifeoma Sampson Work Phone: [address] [place] [address] Comment on above: Erroneous encounter- disregard Start: 05-30-2023 End: 05-30-2023 Subsequent hospital visit by physician Andry Connelly MD Work Phone: Ambulatory Surgery Comment on above: Gastroesophageal ref lux disease, unspecified whether esophagitis present [K21.9] Start: 05-27-2023 ambulatory Andry Connelly MD Work Phone: Ambulatory Surgery Start: 05-21-2023 End: 05-21-2023 Patient encounter procedure Virginia Avalos PA-C Work Phone: [facility] [place] Comment on above: Legally blind (Prima ry Dx); PXE (pseudoxanthoma elasticum); Trigger finger, unspecified finger, unspecified laterality; Mixed hyperlipidemia; Primary hypertension; Swelling of both hands; Gastroesophageal reflux disease with esophagitis, unspecified whether hemorrhage Start: 05-07-2023 Telephone encounter Ifeoma deluna MD Work Phone: [facility] [place] Comment on above: Handicapped Placard Renewal Start: 05-03-2023 Refill Calli DeanHYDROGENATION STILL OPERATOR Work Phone: [facility] [place] Comment on above: Refill Request Start: 04-30-2023 End: 04-30-2023 Patient encounter procedure Cande Pozo PA-C Work Phone: Gastroenterology [place] Comment on above: Gastroesophageal ref lux disease, unspecified whether esophagitis present (Primary Dx); Change in bowel habits Start: 04-25-2023 End: 04-25-2023 Patient encounter procedure Massimo Roberts MD Work Phone: Orthopaedics Comment on above: Numbness and tinglin g in right hand (Primary Dx) Start: 04-09-2023 Telephone encounter Ifeoma deluna MD Work Phone: [facility] [place] Comment on above: requesting lab order Start: 02-19-2023 End: 02-19-2023 Office outpatient visit 15 minutes Cynthia Ramos MD Work Phone: [facility] Comment on above: Secondary glaucoma, indeterminate stage, bilateral (Primary Dx); Pseudoxanthoma elasticum; Pseudophakia of both eyes Start: 01-27-2023 Refill Davdi Older MED PEDS .HYDROGENATION STILL OPERATOR Work Phone: [facility] [place] Comment on above: Refill Request Start: 01-01-2023 End: 01-01-2023 ambulatory [facility] Work Phone: Start: 01-01-2023 End: 01-01-2023 Discharged Recurring [facility]-Occupational Therapy Start: 12-12-2022 Refill Ifeoma Sampson Work Phone: [facility] [place] Comment on above: Refill Request (SEE RX NOTES) Start: 12-04-2022 End: 12-04-2022 Postop follow up visit related to original px Cynthia Ramos MD Work Phone: [facility] Comment on above: Follow-up exam (Prim terra Dx); Vitreous prolapse of left eye Start: 11-22-2022 End: 11-22-2022 Postop follow up visit related to original px Cynthia Ramos MD Work Phone: [facility] Comment on above: Follow-up exam (Prim terra Dx) Start: 11-19-2022 End: 11-19-2022 Patient encounter procedure Taina Fan PA-C Work Phone: Orthopaedics Comment on above: Trigger ring finger of right hand (Primary Dx); Trigger middle finger of left hand Follow-up exam (Prim terra Dx) Start: 11-19-2022 Telephone encounter Henrik Chen MD Work Phone: [facility] Comment on above: Eye Problem Patient Question; Nu rse To Address Start: 11-16-2022 End: 11-16-2022 Patient encounter procedure Cynthia Ramos MD Work Phone: [facility] Comment on above: Follow-up exam (Prim terra Dx) Start: 11-13-2022 Telephone encounter Cynthia cheatham MD Work Phone: [facility] Comment on above: Appointment Start: 11-07-2022 End: 11-07-2022 ambulatory [facility] Facility[facility] Start: 11-05-2022 Telephone encounter Massimo monterroso MD Work Phone: Orthopaedics Comment on above: Patient Question Start: 11-01-2022 Telephone encounter Massimo monterroso MD Work Phone: Orthopaedics Comment on above: Appointment (Siena ding regarding surgery) Start: 10-31-2022 End: 10-31-2022 [facility]:[id number] Start: 10-31-2022 End: 10-31-2022 ambulatory Michelle Perez OT/L [employer] [facility] [place] Comment on above: Blindness right eye category 3, blindness left eye category 4 (Primary Dx); Complaints of difficulty with reading; Difficulty with household tasks; Impaired mobility and personal care; Personal care impairment Start: 10-29-2022 End: 10-29-2022 Patient encounter procedure A-Scan Opht [place] Work Phone: [facility] Comment on above: Nuclear sclerotic ca taract of left eye (Primary Dx) Start: 10-26-2022 Telephone encounter Cynthia cheatham MD Work Phone: [facility] Comment on above: Returning Patient's Call (ascan) Start: 10-23-2022 End: 10-23-2022 Subsequent hospital visit by physician [facility] Work Phone: Radiology Comment on above: Abnormal mammogram [ R92.8] Start: 10-17-2022 End: 10-17-2022 ambulatory [facility] Facility:[id number] Start: 10-17-2022 End: 10-17-2022 ambulatory Michelle Perez OT/L [facility] [place] Comment on above: Difficulty with hous ehold tasks (Primary Dx); Blindness right eye category 3, blindness left eye category 4; Impaired mobility and personal care; Personal care impairment; Complaints of difficulty with reading Start: 10-16-2022 End: 10-16-2022 Patient encounter procedure Ifeoma Davis MD Work Phone: [facility] [place] Comment on above: Gastroesophageal ref lux disease with esophagitis, unspecified whether hemorrhage (Primary Dx); Pre-operative clearance; Trigger finger, unspecified finger, unspecified laterality; Primary hypertension; Mixed hyperlipidemia; PAD (peripheral artery disease) (HCC); PXE (pseudoxanthoma elasticum); Hot flashes Start: 10-16-2022 End: 10-16-2022 Preoperative state Ifeoma Davis MD Work Phone: [facility] [place] Start: 10-09-2022 Telephone encounter Liliya medrano MD Work Phone: Mammography Comment on above: Mammogram Result Favio l Back Start: 10-09-2022 End: 10-09-2022 Subsequent hospital visit by physician [facility] [place] [facility] Work Phone: Radiology Start: 10-02-2022 Telephone encounter Ifeoma deluna MD Work Phone: [facility] [place] Comment on above: Medication Request Start: 10-01-2022 End: 10-01-2022 Orders Only Massimo Roberts MD Work Phone: Orthopaedics Comment on above: Pain in both hands ( Primary Dx) Schedule Surgery Trigger ring finger of right hand (Primary Dx); Trigger middle finger of left hand Pain in both hands [ M79.641, M79.642] Start: 09-28-2022 Documentation procedure Mammog lien Coordinator [facility] Start: 09-28-2022 Letter encounter Mammography Coordinator [facility] Department Start: 09-28-2022 Telephone encounter Destiney davis APRN.CNP Work Phone: OB/Gynecology Comment on above: Orders Start: 09-27-2022 ambulatory Ifeoma Sampson Work Phone: [facility] [place] Comment on above: Upcoming visit on Start: 09-27-2022 Patient encounter procedure Ifeoma Davis MD Work Phone: [facility] [place] Start: 09-27-2022 End: 09-27-2022 Subsequent hospital visit by physician [facility] Comment on above: Encounter for screen ing mammogram for breast cancer [Z12.31] Start: 09-25-2022 End: 09-25-2022 Patient encounter procedure Cynthia Ramos MD Work Phone: [facility] Comment on above: Nuclear senile catar act of left eye (Primary Dx); Primary open angle glaucoma (POAG) of left eye, severe stage Start: 09-19-2022 End: 09-19-2022 ambulatory [facility] Facility:[id number] Start: 09-19-2022 Telephone encounter Wolf mclean OD Work Phone: [facility] Comment on above: Follow Up Phone Call Start: 09-19-2022 End: 09-19-2022 ambulatory Michelle Perez OT/L [facility] [place] Comment on above: Blindness right eye category 3, blindness left eye category 4 (Primary Dx); Difficulty with household tasks; Impaired mobility and personal care; Personal care impairment; Complaints of difficulty with reading Start: 08-16-2022 End: 08-16-2022 Patient encounter procedure Wolf Mason OD Work Phone: [facility] Comment on above: Blindness right eye category 3, blindness left eye category 4 (Primary Dx); Pseudophakia, right eye; Combined 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 cataract, left eye; Hyperopia of right eye Start: 08-10-2022 Refill Ifeoma Sampson Work Phone: [facility] [place] Comment on above: Refill Request Start: 07-24-2022 End: 07-24-2022 Patient encounter procedure Jonathon Eugene MD Work Phone: Ophthalmology Comment on above: Pseudophakia, right eye (Primary Dx) Start: 07-23-2022 Refill Destiney Bill[place] MED PEDSJermaineHYDROGENATION STILL OPERATOR Work Phone: OB/Gynecology Comment on above: Refill Request Medication Problem ( flonase) Start: 07-04-2022 Telephone encounter Ifeoma deluna MD Work Phone: [facility] [place] Comment on above: Patient Update Start: 07-03-2022 End: 07-03-2022 Patient encounter procedure Jonathon Eugene MD Work Phone: Ophthalmology Comment on above: Pseudophakia, right eye (Primary Dx) Start: 06-29-2022 End: 06-29-2022 Patient encounter procedure Valentine Layne Torres OD Work Phone: Ophthalmology Comment on above: Photopsia (Primary D x); Pseudophakia, right eye; Combined 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 cataract, left eye; Primary open angle glaucoma (POAG) of both eyes, indeterminate stage; Angioid streaks of macula Start: 06-28-2022 Telephone encounter Jonathon graves MD Work Phone: [facility] Comment on above: Manager Paper - O ther Cough Start: 06-26-2022 End: 06-26-2022 Patient encounter procedure Jonathon Eugene MD Work Phone: [facility] Comment on above: Pseudophakia (Primar y Dx) Start: 06-25-2022 ambulatory JONATHON EUGENE Facility: [facility] Start: 06-25-2022 End: 06-25-2022 Subsequent hospital visit by physician Jonathon Eugene MD Work Phone: [facility] Comment on above: 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 [H25.811]Photopsia [H53.19] Start: 06-22-2022 Refill Jonathon Eugene MD Work Phone: [facility] Comment on above: Refill Request (Pre- op drops) Medication Problem Start: 06-20-2022 Telephone encounter Jonathon graves MD Work Phone: [facility] Comment on above: Appointment Start: 06-20-2022 End: 06-20-2022 Patient encounter procedure Charlene Grossman MD Work Phone: [facility] Cardiology [place] Comment on above: PXE (pseudoxanthoma elasticum) (Primary Dx); Obesity, Class I, BMI 30-34.9 Start: 05-11-2022 Refill Ifeoma Sampson Work Phone: [facility] Comment on above: Refill Request Patient Question (Re quest medication not on med list please) Start: 05-03-2022 End: 05-03-2022 Patient encounter procedure Massimo Roberts MD Work Phone: Orthopaedics Comment on above: Pain in both hands ( Primary Dx); Trigger middle finger of left hand; Trigger ring finger of right hand Start: 04-25-2022 Telephone encounter Jonathon graves MD Work Phone: [facility] Comment on above: Preparations For Sharath zaki (IOL Order Right Eye for 06/25/22 surgery) Start: 04-12-2022 End: 04-12-2022 Patient encounter procedure Jonathon Eugene MD Work Phone: Ophthalmology Comment on above: 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 (Primary Dx); Combined 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 cataract of left eye Start: 04-03-2022 End: 04-03-2022 Patient encounter procedure Jonathon Eugene MD Work Phone: Ophthalmology Comment on above: Photopsia (Primary D x); Combined 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 cataract of both eyes; Primary open angle glaucoma (POAG) of both eyes, indeterminate stage; Combined form of age-related cataract, both eyes Start: 03-27-2022 End: 03-27-2022 Patient encounter procedure Cynthia Ramos MD Work Phone: [facility] Comment on above: Primary open angle g laucoma (POAG) of both eyes, indeterminate stage (Primary Dx); Corneal dellen of left eye; Nuclear senile cataract of right eye Start: 03-20-2022 ambulatory Ifeoma Sampson Work Phone: [facility] [place] Start: 03-14-2022 End: 03-14-2022 Patient encounter procedure Jonathon Eugene MD Work Phone: Ophthalmology Comment on above: Photopsia (Primary D x); Primary open angle glaucoma (POAG) of both eyes, indeterminate stage; Combined form of age-related cataract, both eyes; Marginal corneal ulcer of left eye; Angioid streaks of macula Start: 03-02-2022 Telephone encounter Jonathon graves MD Work Phone: [facility] Comment on above: Lab & Test Results Start: 02-27-2022 End: 02-27-2022 Patient encounter procedure Jonathon Eugene MD Work Phone: [facility] Comment on above: Photopsia (Primary D x); Primary open angle glaucoma (POAG) of both eyes, indeterminate stage; Combined form of age-related cataract, both eyes; Marginal corneal ulcer of left eye Start: 02-10-2022 Telephone encounter Lowell Kelly APRN.HYDROGENATION STILL OPERATOR [facility] Comment on above: Results Start: 02-09-2022 Refill Ifeoma Sampson Work Phone: [facility] [place] Comment on above: Refill Request Start: 02-07-2022 Telephone encounter Jonathon graves MD Work Phone: [facility] Comment on above: Medication Problem Start: 01-12-2022 Refill Destiney Mckeon APRN.HYDROGENATION STILL OPERATOR Work Phone: OB/Gynecology Comment on above: Refill Request Start: 12-25-2021 End: 12-25-2021 Patient encounter procedure Ifeoma Davis MD Work Phone: [facility] [place] Comment on above: PXE (pseudoxanthoma elasticum) (Primary Dx); Vertigo; Memory deficits; New daily persistent headache; Chronic mixed headache syndrome Start: 12-19-2021 End: 12-19-2021 Patient encounter procedure Cynthia Ramos MD Work Phone: [facility] Comment on above: Follow-up exam (Prim terra Dx); Photopsia; 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 Start: 12-07-2021 Telephone encounter Ifeoma deluna MD Work Phone: [facility] [place] Comment on above: Patient Question Start: 12-04-2021 End: 12-04-2021 Patient encounter procedure Destiney Mckeon APRN.HYDROGENATION STILL OPERATOR Work Phone: OB/Gynecology Comment on above: Encounter for gyneco logical examination (general) (routine) without abnormal findings (Primary Dx); Encounter for screening mammogram for breast cancer Start: 12-04-2021 End: 04-04-2022 Patient encounter status Destiney Mckeon APRN.HYDROGENATION STILL OPERATOR Work Phone: OB/Gynecology Start: 11-28-2021 End: 11-28-2021 Patient encounter procedure Cynthia Ramos MD Work Phone: [facility] Comment on above: Follow-up exam (Prim terra Dx) Procedures Date Procedure Procedure Detail Performing Clinician Start: 03-23-2025 Ophthalmic us dx corneal pachymetry uni/bi Janet Lowery MD Work Phone: Start: 03-23-2025 End: 03-23-2025 Fundus photography w/interpretation & report Janet Lowery MD Work Phone: Start: 03-10-2025 X-ray of lumbar spine, two or three views Dr. Ifeoma Davis MD Work Phone: Start: 11-24-2024 Plain X-ray of hip Dr. Ifeoma Davis MD Work Phone: Start: 11-24-2024 Plain x-ray of pelvis and lower extremity Dr. Ifeoma Davis MD Work Phone: Start: 11-17-2024 Polysomnogram Michelle Chin APRN.HYDROGENATION STILL OPERATOR Work Phone: Start: 10-31-2024 Urnls dip stick/tablet rgnt auto w/o microscopy [facility] Provider Start: 10-13-2024 Computerized ophthalmic imaging retina Cynthia Ramos MD Work Phone: Start: 10-12-2024 Adult depression screening assessment Michelle Chin APRN.HYDROGENATION STILL OPERATOR Work Phone: Start: 03-27-2024 Lipid 1996 panel - Serum or Plasma Ifeoma Davis MD Work Phone: Start: 02-18-2024 Computerized ophthalmic imaging retina Cynthia Ramos MD Work Phone: Start: 12-04-2023 MRI of joint of lower extremity Dr. Rogelio Davis Work Phone: Start: 11-06-2023 Plain X-ray of shoulder Dr. Ifeoma Davis Work Phone: Start: 08-20-2023 End: 08-20-2023 Visual field xm uni/bi w/interp extended exam Cynthia Ramos MD Work Phone: Start: 08-20-2023 End: 08-20-2023 Ophth medical xm&eval comprhnsv estab pt 1/> Secondary glaucoma, indeterminate stage, bilateral Cynthia Ramos MD Work Phone: Comment on above: Secondary glaucoma, indeterminate stage, bilateral (Primary Dx); Pseudoxanthoma elasticum Start: 05-30-2023 Level iv surg pathology gross&microscopic exam Andry Connelly MD Work Phone: Start: 05-30-2023 Esophagogastroduodenoscopy transoral diagnostic Cande Pozo PA-C Work Phone: Start: 05-30-2023 Colonoscopy flx dx w/collj spec when pfrmd Cande Pozo PA-C Work Phone: Start: 05-30-2023 Colonoscopy Ifeoma Davis MD Work Phone: Start: 12-04-2022 Severing vitreous strans laser 1/> stages Cynthia Ramos MD Work Phone: Start: 10-29-2022 IOL BIOMETRY W/ IOL CALC OU (BOTH EYES) Cynthia Ramos MD Work Phone: Start: 10-23-2022 Us breast uni real time with image limited Destiney Bill[facility] MED PEDS.HYDROGENATION STILL OPERATOR Work Phone: Start: 10-23-2022 Digital breast tomosynthesis unilateral Destiney Bill[place] MED PEDS.HYDROGENATION STILL OPERATOR Work Phone: Start: 10-16-2022 Ecg routine ecg w/least 12 lds i&r only [facility] Provider Start: 10-15-2022 Lipid 1996 panel - Serum or Plasma Massimo Roberts MD Work Phone: Start: 10-09-2022 Radex shoulder complete minimum 2 views [facility] Provider Start: 10-01-2022 Radex hand minimum 3 views Massimo levin MD Work Phone: Start: 09-27-2022 End: 09-27-2022 Mammography Destiney Mckeon APRN.HYDROGENATION STILL OPERATOR Work Phone: Start: 06-29-2022 Computerized ophthalmic imaging retina Valentine Torres OD Work Phone: Start: 04-12-2022 IOL BIOMETRY W/ IOL CALC OU (BOTH EYES) Jonathon Eugene MD Work Phone: Start: 04-03-2022 Computerized corneal topography uni/bi Jonathon Eugene MD Work Phone: Start: 03-27-2022 Visual field xm uni/bi w/interp extended exam Cynthia Ramos MD Work Phone: Start: 03-14-2022 Computerized ophthalmic imaging retina Jonathon Eugene MD Work Phone: Start: 08-21-2021 Mammography Cynthia Ramos MD Work Phone: Start: 06-22-2019 Colonoscopy Cynthia Ramos MD Work Phone: Start: 07-28-2018 Adult depression screening assessment Cynthia Ramos MD Work Phone: H/O: surgery Status post glau coma surgery Brittaney Mckeon MD Work Phone: H/O: surgery Status post glau coma surgery Ifeoma Davis MD Work Phone: Plan of Treatment Date Care Activity Detail Author Start: 03-02-2035 Urine microalbumin profile DTaP,Tdap,Td Vaccine (2 - Td or Tdap) [facility] Start: 03-27-2029 Lipid panel Lipid Screening [facility] Start: 12-23-2028 Screening for malignant neoplasm of cervix [facility] Start: 05-30-2028 Colonoscopy Colonoscopy [facility] Start: 05-30-2028 Colorectal Cancer Screening Colorectal Cancer Screening [facility] Start: 05-30-2028 Screening for malignant neoplasm of colon [facility] Start: 03-24-2028 Diabetes Screening Diabetes Screening [facility] Start: 11-20-2027 Diabetes Screening Diabetes Screening [facility] Start: 10-15-2027 Lipid 1996 panel - Serum or Plasma Lipid Screening [facility] Start: 10-15-2027 Lipid panel Lipid Screening [facility] Start: 10-15-2027 LIPID SCREEN LIPID SCREEN [facility] Start: 03-27-2027 Diabetes Screening Diabetes Screening [facility] Start: 08-15-2026 LIPID SCREEN LIPID SCREEN [facility] Start: 05-21-2026 Diabetes Screening Diabetes Screening [facility] Start: 05-04-2026 End: 10-11-2026 VISUAL FIELD 24-2 OU (BOTH EYES) VISUAL FIELD 24-2 OU (BOTH EYES) [facility] Imaging Routine Secondary glaucoma, indeterminate stage, bilateral Expected: 05/04/2026, Expires: 10/11/2026 [facility] Work Phone: Comment on above: Expected: 05/04/2026, Expires: Start: 04-22-2026 Annual PCP Team Chronic Disease Visit Annual PCP Team Chronic Disease Visit [facility] Start: 12-29-2025 Annual PCP Team Chronic Disease Visit Annual PCP Team Chronic Disease Visit [facility] Start: 12-29-2025 BP Controlled (<130/80) BP Controlled (<130/80) [facility] Start: 11-19-2025 Annual PCP Team Chronic Disease Visit Annual PCP Team Chronic Disease Visit [facility] Start: 11-19-2025 BP Controlled (<130/80) BP Controlled (<130/80) [facility] Start: 11-03-2025 Annual PCP Team Chronic Disease Visit Annual PCP Team Chronic Disease Visit [facility] Start: 11-03-2025 BP Controlled (<130/80) BP Controlled (<130/80) [facility] Start: 10-21-2025 Screening for malignant neoplasm of breast Mammogram Screening [facility] Start: 10-15-2025 DIABETES SCREEN DIABETES SCREEN [facility] Start: 10-12-2025 Annual PCP Team Chronic Disease Visit Annual PCP Team Chronic Disease Visit [facility] Start: 10-12-2025 Anxiety Screening Anxiety Screening [facility] Start: 10-12-2025 BP Controlled (<130/80) BP Controlled (<130/80) [facility] in Start: 10-12-2025 Covid-19 Vaccine ( season) Covid-19 Vaccine () [facility] Comment on above: Postponed from 05/03/2024 (Declined at t his time) Start: 10-12-2025 Depression Screening Depression Screening [facility] Start: 10-07-2025 Annual PCP Team Chronic Disease Visit Annual PCP Team Chronic Disease Visit [facility] Start: 10-07-2025 BP Controlled (<130/80) BP Controlled (<130/80) [facility] Start: 09-29-2025 Annual PCP Team Chronic Disease Visit Annual PCP Team Chronic Disease Visit [facility] Start: 09-15-2025 BP Controlled (<130/80) BP Controlled (<130/80) [facility] Start: 07-23-2025 End: 07-23-2025 Patient encounter procedure 07/23/2025 2:00 PM EST Office Visit [facility] [address] [place] [address] Ifeoma Davis MD [address] [place] [address] 3 month F/U [facility] [place] Comment on above: 3 month F/U Start: 06-09-2025 End: 06-09-2025 Patient encounter procedure 06/09/2025 12:30 PM EDT Office Visit [facility] Ophthalmology [address] [facility] [address], [place] [address] Adriana Lund MD [address] [place] [address] Diagnostics[facility] [address] [facility] [address], [place] [address] 10 WEEK OUTCOME Ophthalmology Comment on above: 10 WEEK OUTCOME Start: 05-27-2025 End: 05-27-2025 Patient encounter procedure 05/27/2025 9:20 AM EDT Office Visit [facility] [place] [address] [place] [address] Ifeoma Davis MD [address] [place] [address] Wellness [facility] [place] Comment on above: Wellness Start: 05-18-2025 End: 05-18-2025 Patient encounter procedure 05/18/2025 11:00 AM EDT Office Visit [facility] [address] [place] [address] Cynthia Ramos MD [address] [place] [id number] 4 week VaTa [facility] Comment on above: 4 week VaTa Start: 05-12-2025 End: 05-12-2025 Patient encounter procedure 05/12/2025 11:00 AM EDT Office Visit [facility] Ophthalmology [address] [address] Adriana Lund MD [address] [place] [address] Diagnostics, [facility] [address] [address] 6 WEEK OUTCOME Ophthalmology Comment on above: 6 WEEK OUTCOME Start: 05-03-2025 DIABETES SCREEN DIABETES SCREEN [facility] Start: 05-03-2025 Influenza vaccination [facility] Start: 04-28-2025 End: 04-28-2025 Patient encounter procedure 04/28/2025 11:00 AM EDT Office Visit [facility] Ophthalmology [address] [address] [address] Adriana Lund MD [address] [place] [address] [id number] Diagnostics, [facility] [address] [address] 3 WEEK POST OP Ophthalmology Comment on above: 3 WEEK POST OP Start: 04-22-2025 End: 04-22-2025 Patient encounter procedure 04/22/2025 10:20 AM EDT Office Visit Internal Medicine [facility] [address] [place] [address] Ifeoma Davis MD [address] [place] [address] 3 month follow up [facility] Comment on above: 3 month follow up Start: 04-20-2025 End: 04-20-2025 Patient encounter procedure 04/20/2025 9:30 AM EDT Office Visit OPHT [facility] [address] [place] [address] Cynthia Ramos MD [address] [place], [place] [id number] SP 6 months refraction HVF 24-2 large size V [facility] Comment on above: SP 6 months refraction HVF 24-2 large si ze V Start: 04-16-2025 X-ray of lumbosacral spine L/S Spine Bending Flex/Ext [facility] Start: 04-16-2025 XR Spine Lumbar and Sacrum Views [facility] Start: 04-12-2025 Subsequent hospital visit by physician 04/12/2025 Hospital Encounter Ophthalmology [address] [address] Janet Lowery MD [address] [place] [address] 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, 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.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] Ophthalmology Comment on above: Leaking of conjunctival drainage bleb [H 59.89, T81.31XA] Start: 04-11-2025 BP Controlled (<130/80) BP Controlled (<130/80) [facility] Start: 04-06-2025 End: 04-06-2025 Patient encounter procedure 04/06/2025 2:15 PM EDT Office Visit OPHT Ophthalmology [address] [address] Janet Lowery MD [address] [place] [address] Diagnostics, [facility] [address] [address] Michelle 04/06 for follow up Ophthalmology Comment on above: Michelle 04/06 for follow up Start: 04-02-2025 End: 04-02-2025 Patient encounter procedure Ophthalmology Comment on above: 1 WEEK POST OP Start: 03-31-2025 Annual PCP Team Chronic Disease Visit Annual PCP Team Chronic Disease Visit [facility] Start: 03-31-2025 BP Controlled (<130/80) BP Controlled (<130/80) [facility] in Start: 03-30-2025 End: 03-30-2025 Patient encounter procedure 03/30/2025 2:00 PM EDT Office Visit Internal Medicine [facility] [address] [place] [address] Ifeoma Davis MD [address] [place] [address] 3 month follow up Internal Medicine [facility] Comment on above: 3 month follow up Start: 03-26-2025 End: 03-26-2025 Patient encounter procedure 03/26/2025 8:15 AM EDT Office Visit [facility] Ophthalmology [address] [address] Adriana Lund MD [address] [address] 1 DAY POST OP bleb leak repair OS Ophthalmology Comment on above: 1 DAY POST OP bleb leak repair OS Start: 03-25-2025 End: 03-25-2025 Admission to same day surgery center 03/25/2025 12:01 PM EDT - 03/25/2025 12:59 PM EDT Surgery Ophthalmology [address] [address] Adriana Lund MD [address] [address] 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 Ophthalmology Comment on above: REV OR 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 WOUND EYE ANTERI OR SEGMENT MAJOR Start: 03-25-2025 End: 03-25-2025 Anesthesia consultation 03/25/2025 12:01 PM EDT Anesthesia Event Ophthalmology [address] [address] Marquita Aj SRNA Ophthalmology Start: 03-25-2025 Subsequent hospital visit by physician 03/25/2025 12:01 PM EDT Hospital Encounter Ophthalmology [address] [address] Adriana Lund MD [address] [place] [address] 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, T81.31XA] Ophthalmology Comment on above: Leaking of conjunctival drainage bleb [H 59.89, T81.31XA] Start: 03-25-2025 End: 03-25-2025 Revj/rpr oprative wound anterior segment [facility] Start: 03-24-2025 End: 03-24-2025 Patient encounter procedure Neurology Comment on above: 31-90 day follow up Start: 03-16-2025 End: 06-15-2025 Lipid 1996 panel - Serum or Plasma LIPID PANEL, FASTING Lab Routine Mixed hyperlipidemia Expected: 03/16/2025, Expires: 06/15/2025 [facility] Work Phone: Comment on above: Expected: 03/16/2025, Expires: Start: 03-10-2025 X-ray of lumbar spine, two or three views Lumbar Spine 2 or 3 Views [facility] Start: 03-10-2025 XR Lumbar spine 2 or 3 Views [facility] Start: 03-02-2025 End: 03-02-2025 Nursing evaluation of patient and report 03/02/2025 12:45 PM EDT Nurse Visit Family Medicine [facility] [address] [place] [id number] Nurse, Or [address] [place] [id number] [facility] Comment on above: Tdap Start: 03-01-2025 Influenza [facility] Comment on above: Postponed from 05/03/2024 (Declined at t his time) Start: 12-29-2024 End: 12-29-2024 Patient encounter procedure 12/29/2024 3:00 PM EDT Office Visit Internal Medicine [facility] [address] [place] [address] Ifeoma Davis MD [address] [place] [address] 6 week follow up Internal Medicine [facility] Comment on above: 6 week follow up Start: 11-27-2024 End: 02-26-2025 Basic metabolic 2000 panel - Serum or Plasma BASIC METABOLIC PANEL Lab Routine Hypokalemia Expected: 11/27/2024 (Approximate), Expires: 02/26/2025 [facility] Work Phone: Comment on above: Expected: 11/27/2024 (Approximate), Expi res: 02/26/2025 Start: 11-19-2024 End: 02-18-2025 Basic metabolic 2000 panel - Serum or Plasma [facility] Work Phone: Comment on above: Expected: 11/19/2024, Expires: Start: 11-19-2024 End: 11-19-2024 Patient encounter procedure 11/19/2024 1:00 PM EDT Office Visit Internal Medicine [facility] [address] [place] [address] David Anna APRN.HYDROGENATION STILL OPERATOR [address] [place] [address] 2 wk follow up Internal Medicine [facility] Comment on above: 2 wk follow up Start: 11-17-2024 End: 11-17-2024 Patient encounter procedure 11/17/2024 9:00 PM EDT Office Visit [facility] [address] [place] [phone] Snoring [R06.83]; Excessive daytime sleepiness [G47.19]; Non-restorative sleep [G47.8]; PLMD (periodic limb movement disorder) [G47.61]; Primary hypertension [I10] [facility] Comment on above: Snoring [R06.83]; Excessive daytime slee piness [G47.19]; Non-restorative sleep [G47.8]; PLMD (periodic limb movement disorder) [G47.61]; Primary hypertension [I10] Start: 11-17-2024 BP Controlled (<130/80) BP Controlled (<130/80) [facility] Start: 11-03-2024 End: 02-02-2025 25-hydroxyvitamin D3 [Mass/volume] in Serum or Plasma [facility] Comment on above: Expected: 11/03/2024, Expires: Start: 11-03-2024 End: 02-02-2025 Cobalamin (Vitamin B12) [Mass/volume] in Serum or Plasma [facility] Comment on above: Expected: 11/03/2024, Expires: Start: 11-03-2024 End: 02-02-2025 Ferritin [Mass/volume] in Serum or Plasma [facility] Comment on above: Expected: 11/03/2024, Expires: Start: 11-03-2024 End: 02-02-2025 Iron and Iron binding capacity panel - Serum or Plasma [facility] Work Phone: Comment on above: Expected: 11/03/2024, Expires: Start: 11-03-2024 End: 11-03-2024 Patient encounter procedure 11/03/2024 2:00 PM EST Office Visit Internal Medicine [facility] [address] [place] [address] Ifeoma Davis MD [address] [place] [address] 1 month follow up Internal Medicine [facility] Comment on above: 1 month follow up Start: 11-03-2024 End: 02-02-2025 Thyrotropin [Units/volume] in Serum or Plasma [facility] Comment on above: Expected: 11/03/2024, Expires: Start: 11-03-2024 End: 02-02-2025 Thyroxine (T4) free [Mass/volume] in Serum or Plasma [facility] Comment on above: Expected: 11/03/2024, Expires: Start: 10-13-2024 End: 10-13-2024 Patient encounter procedure 10/13/2024 10:15 AM EST Office Visit OPHT [facility] [address] [place] [address] Cynthia Ramos MD [address] [place] [address] SP 6 months VaTa and mac OCT [facility] Comment on above: SP 6 months VaTa and mac OCT Start: 10-12-2024 End: 10-12-2024 Patient encounter procedure 10/12/2024 3:00 PM EST Office Visit Internal Medicine [facility] [address] [place], [place] [id number] Ifeoma Davis MD [address] [place], [place] [phone] follow up increase memory loss. decline in adls/ gait [facility] Comment on above: follow up increase memory loss. decline in adls/ gait Start: 10-10-2024 Screening for malignant neoplasm of breast Mammogram Screening [facility] Start: 10-07-2024 End: 10-07-2024 Patient encounter procedure 10/07/2024 2:00 PM EST Office Visit Neurology [address] [place] [address] Michelle Chin, MURTAZA.HYDROGENATION STILL OPERATOR [address] [place] [address] DAYSI (obstructive sleep apnea) [G47.33] Neurology Comment on above: DAYSI (obstructive sleep apnea) [G47.33] Start: 09-29-2024 End: 09-29-2024 Patient encounter procedure [facility] Comment on above: 6 mo follow up; routine 6 mo follow up; rout ine - HTN focus [place] Start: 09-27-2024 Annual PCP Team Chronic Disease Visit Annual PCP Team Chronic Disease Visit [facility] Start: 09-24-2024 End: 09-24-2024 Patient encounter procedure 09/24/2024 3:00 PM EST Office Visit Neurology [address] [place] [address] Michelle Chin APRN.HYDROGENATION STILL OPERATOR [address] [place] [address] F/U Neurology Comment on above: F/U Start: 09-02-2024 Medicare Advantage Annual Wellness Visit Medicare Advantage Annual Wellness Visit [facility] Start: 08-18-2024 End: 08-18-2024 Patient encounter procedure 08/18/2024 12:45 PM EST Office Visit OPHT [facility] [address] [place] [address] Cynthia Ramos MD [address] [place], [place] [id number] SP 6 months VaTa and mac OCT [facility] Comment on above: SP 6 months VaTa and mac OCT Start: 08-15-2024 DIABETES SCREEN DIABETES SCREEN [facility] Start: 08-13-2024 End: 08-13-2024 Patient encounter procedure 08/13/2024 1:00 PM EST Office Visit Neurology [address] [place] [address] Michelle Chin APRN.HYDROGENATION STILL OPERATOR [address] [place] [address] DAYSI (obstructive sleep apnea) [G47.33] Neurology Comment on above: DAYSI (obstructive sleep apnea) [G47.33] Start: 07-23-2024 End: 07-23-2024 Patient encounter procedure 07/23/2024 11:20 AM EST Office Visit Orthopaedics [address] [place], [place] [address] Massimo Roberts MD [address] [place], [place] [phone] rt wrist discuss surgery Orthopaedics Comment on above: rt wrist discuss surgery Start: 06-29-2024 HPV TESTING HPV TESTING [facility] Start: 06-29-2024 PAP TESTING PAP TESTING [facility] Start: 06-29-2024 Screening for malignant neoplasm of cervix [facility] Start: 06-22-2024 Colonoscopy COLONOSCOPY [facility] Start: 06-22-2024 COLORECTAL CANCER SCREENING COLORECTAL CANCER SCREENING [facility] Start: 06-18-2024 End: 06-18-2024 Patient encounter procedure 06/18/2024 12:50 PM EDT Appointment [facility] [address] [facility] [address] Encounter for screening mammogram for malignant neoplasm of breast [Z12.31] Mammogram Comment on above: Encounter for screening mammogram for ma lignant neoplasm of breast [Z12.31] Start: 06-04-2024 End: 06-04-2024 Patient encounter procedure 06/04/2024 12:30 PM EDT Office Visit Vasculary Surgery [address] [facility] [address] 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] Vasculary Surgery Comment on above: 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] Start: 05-21-2024 Annual PCP Team Chronic Disease Visit Annual PCP Team Chronic Disease Visit [facility] Start: 05-21-2024 BP Controlled (<130/80) BP Controlled (<130/80) [facility] in Start: 05-03-2024 Covid-19 Vaccine ( season) Covid-19 Vaccine () [facility] Start: 05-03-2024 Covid-19 Vaccine ( season) Covid-19 Vaccine ( season) [facility] Start: 05-03-2024 Influenza vaccination [facility] Start: 04-30-2024 BP CONTROLLED (<130/80) BP CONTROLLED (<130/80) [facility] in Start: 03-31-2024 End: 06-30-2024 Hepatitis C virus Ab [Presence] in Serum [facility] Work Phone: Comment on above: Expected: 03/31/2024, Expires: Start: 03-31-2024 End: 06-30-2024 HIV 1+2 Ab [Presence] in Serum or Plasma by Immunoassay [facility] Comment on above: Expected: 03/31/2024, Expires: Start: 03-31-2024 End: 03-31-2024 Patient encounter procedure [facility] Comment on above: physical physical - AWV due Start: 03-17-2024 End: 06-16-2024 Basic metabolic 2000 panel - Serum or Plasma BASIC METABOLIC PANEL Lab Routine Hypertension Expected: 03/17/2024, Expires: 06/16/2024 [facility] Work Phone: Comment on above: Expected: 03/17/2024, Expires: Start: 03-17-2024 End: 06-16-2024 CBC panel - Blood by Automated count COMPLETE BLOOD COUNT Lab Routine Medication management Expected: 03/17/2024, Expires: 06/16/2024 [facility] Comment on above: Expected: 03/17/2024, Expires: Start: 03-17-2024 End: 06-16-2024 Lipid 1996 panel - Serum or Plasma LIPID PANEL BASIC Lab Routine Mixed hyperlipidemia Expected: 03/17/2024, Expires: 06/16/2024 [facility] Comment on above: Expected: 03/17/2024, Expires: Start: 02-18-2024 End: 02-18-2024 Patient encounter procedure 02/18/2024 12:30 PM EDT Office Visit OPHT [facility] [address] [place] [address] Cynthia Ramos MD [address] [place] [address] 6m follow up [facility] Comment on above: 6m follow up Start: 12-11-2023 BP CONTROLLED (<130/80) BP CONTROLLED (<130/80) [facility] Start: 10-16-2023 ANNUAL PCP TEAM CHRONIC DISEASE VISIT ANNUAL PCP TEAM CHRONIC DISEASE VISIT [facility] Start: 10-16-2023 BP CONTROLLED (<130/80) BP CONTROLLED (<130/80) [facility] in Start: 09-27-2023 Mammography [facility] Start: 09-27-2023 Screening for malignant neoplasm of breast Mammogram Screening [facility] Start: 09-02-2023 Behavioral Health Screening Behavioral Health Screening [facility] Start: 09-02-2023 Depression Assessment Depression Assessment [facility] Start: 06-25-2023 BP CONTROLLED (<130/80) BP CONTROLLED (<130/80) [facility] Start: 06-20-2023 BP CONTROLLED (<130/80) BP CONTROLLED (<130/80) [facility] Start: 06-04-2023 ANNUAL PCP TEAM CHRONIC DISEASE VISIT ANNUAL PCP TEAM CHRONIC DISEASE VISIT [facility] Start: 05-03-2023 Covid-19 Vaccine () Covid-19 Vaccine () [facility] Start: 05-03-2023 Influenza vaccination [facility] Start: 02-09-2023 BP CONTROLLED (<130/80) BP CONTROLLED (<130/80) [facility] Start: 12-25-2022 ANNUAL PCP TEAM CHRONIC DISEASE VISIT ANNUAL PCP TEAM CHRONIC DISEASE VISIT [facility] Start: 12-04-2022 BP CONTROLLED (<130/80) BP CONTROLLED (<130/80) [facility] Start: 10-23-2022 ANNUAL PCP TEAM CHRONIC DISEASE VISIT ANNUAL PCP TEAM CHRONIC DISEASE VISIT [facility] Start: 10-16-2022 End: 12-16-2022 Follitropin [Units/volume] in Serum or Plasma FSH BLD Lab Routine Hot flashes Expected: 10/16/2022, Expires: 12/16/2022 [facility] Work Phone: Comment on above: Expected: 10/16/2022, Expires: 3 Start: 09-27-2022 End: 11-27-2022 CBC W Auto Differential panel - Blood CBC + DIFF Lab Routine Annual physical exam Expected: 09/27/2022, Expires: 11/27/2022 [facility] Work Phone: Comment on above: Expected: 09/27/2022, Expires: 3 Start: 09-27-2022 End: 11-27-2022 Comprehensive metabolic 2000 panel - Serum or Plasma COMP METABOLIC PANEL Lab Routine Annual physical exam Expected: 09/27/2022, Expires: 11/27/2022 [facility] Work Phone: Comment on above: Expected: 09/27/2022, Expires: 3 Start: 09-27-2022 End: 11-27-2022 Lipid 1996 panel - Serum or Plasma LIPID PANEL BASIC Lab Routine Annual physical exam Expected: 09/27/2022, Expires: 11/27/2022 [facility] Work Phone: Comment on above: Expected: 09/27/2022, Expires: 3 Start: 09-27-2022 End: 11-27-2022 Thyrotropin [Units/volume] in Serum or Plasma TSH BLD Lab Routine Annual physical exam Expected: 09/27/2022, Expires: 11/27/2022 [facility] Work Phone: Comment on above: Expected: 09/27/2022, Expires: 3 Start: 09-02-2022 DEPRESSION ASSESSMENT DEPRESSION ASSESSMENT [facility] Start: 08-21-2022 Mammography MAMMOGRAM [facility] Start: 06-27-2022 End: 06-20-2023 Echocardiography ECHO Cardiology Routine PXE (pseudoxanthoma elasticum) Expected: 06/27/2022, Expires: 06/20/2023 [facility] Work Phone: Comment on above: Expected: 06/27/2022, Expires: 3 Start: 05-03-2022 Influenza vaccination [facility] Start: 03-20-2022 End: 05-20-2022 CBC panel - Blood by Automated count CBC Lab Routine Medication management Expected: 03/20/2022, Expires: 05/20/2022 [facility] Work Phone: Comment on above: Expected: 03/20/2022, Expires: 2 Start: 03-20-2022 End: 05-20-2022 Hemoglobin A1c in Blood HGB A1C Lab Routine Medication management Expected: 03/20/2022, Expires: 05/20/2022 [facility] Work Phone: Comment on above: Expected: 03/20/2022, Expires: 2 Start: 03-20-2022 End: 05-20-2022 SCHEDULE LAB TESTING SCHEDULE LAB TESTING Lab Routine Expected: 03/20/2022, Expires: 05/20/2022 [facility] Work Phone: Comment on above: Expected: 03/20/2022, Expires: 2 Start: 02-27-2022 End: 04-29-2022 Herpes simplex virus+Varicella zoster virus DNA [Presence] in Unspecified specimen by SUKUMAR with probe detection HSV 1,2/VZV AMP MOLECULAR DETECT Lab Routine Marginal corneal ulcer of left eye Expected: 02/27/2022, Expires: 04/29/2022 [facility] Work Phone: Comment on above: Expected: 02/27/2022, Expires: 2 Start: 02-27-2022 End: 04-29-2022 Nuclear Ab [Presence] in Serum by Immunoassay OLGA PANEL BLOOD SCRN Lab Routine Marginal corneal ulcer of left eye Expected: 02/27/2022, Expires: 04/29/2022 [facility] Work Phone: Comment on above: Expected: 02/27/2022, Expires: 2 Start: 09-02-2021 DEPRESSION ASSESSMENT DEPRESSION ASSESSMENT [facility] Start: 07-28-2019 Adult depression screening assessment DEPRESSION SCREENING [facility] Start: 2019 Pneumococcal Vaccine: 50+ (1 of 1 - PCV) Pneumococcal Vaccine: 50+ (1 of 1 - PCV) [facility] Start: 2019 SHINGRIX VACCINE (1 of 2) SHINGRIX VACCINE (1 of 2) [facility] Start: 2014 COLOGUARD (FIT-DNA) COLOGUARD (FIT-DNA) [facility] Start: [address] COLONOGRAPHY [facility] Start: 2014 FECAL OCCULT BLOOD FECAL OCCULT BLOOD [facility] Start: 2014 Screening for malignant neoplasm of colon [facility] Start: 2014 SIGMOIDOSCOPY SIGMOIDOSCOPY [facility] Start: 1988 Hepatitis B Vaccine (1 of 3 - 19+ 3-dose series) Hepatitis B Vaccine (1 of 3 - 19+ 3-dose series) [facility] Start: 1988 SHINGRIX VACCINE (1 of 2) SHINGRIX VACCINE (1 of 2) [facility] Start: 1988 Urine microalbumin profile [facility] Start: 1987 Anxiety Screening Anxiety Screening [facility] Start: 1987 BP CONTROLLED (<130/80) BP CONTROLLED (<130/80) [facility] Start: 1987 Depression Screening Depression Screening [facility] Start: 1987 HEPATITIS C SCREENING HEPATITIS C SCREENING [facility] Start: 1987 Hepatitis C screening Hepatitis C Screening [facility] Start: 1987 HIV SCREENING HIV SCREENING [facility] Start: 1987 HIV screening HIV Screening [facility] Start: 1981 COVID-19 VACCINE (1) COVID-19 VACCINE (1) [facility] Start: 1975 PNEUMOCOCCAL (1 - PCV) PNEUMOCOCCAL (1 - PCV) [facility] Start: 1974 COVID-19 VACCINE (#1) COVID-19 VACCINE (#1) [facility] Start: 1969 COVID-19 VACCINE (#1) COVID-19 VACCINE (#1) [facility] Start: 1969 HEPATITIS B (1 of 3 - 3-dose series) HEPATITIS B (1 of 3 - 3-dose series) [facility] Start: 1969 Hepatitis B Vaccine (1 of 3 - 3-dose series) Hepatitis B Vaccine (1 of 3 - 3-dose series) [facility] Bacteria identified in Urine by Culture BACTERIAL CULTURE, URINE Microbiology Routine Dysuria Ordered: 10/31/2024 [facility] Work Phone: Comment on above: Ordered: 10/31/2024 End: 04-30-2024 COLONOSCOPY DIAGNOSTIC COLONOSCOPY DIAGNOSTIC Endoscopy Routine Change in bowel habits 1 Occurrences starting 04/30/2023 until 04/30/2024 [facility] Work Phone: Comment on above: 1 Occurrences starting 04/30/2023 until 04/30/2024 CORNEAL TOPOGRAPHY A TLAS OU (BOTH EYES) CORNEAL TOPOGRAPHY ATLAS OU (BOTH EYES) [facility] Imaging Routine Nuclear sclerotic cataract of left eye 10/29/2022 1:13 PM EST [facility] Work Phone: CORNEAL TOPOGRAPHY PENTACAM OU (BOTH EYES) CORNEAL TOPOGRAPHY PENTACAM OU (BOTH EYES) [facility] Imaging Routine Nuclear sclerotic cataract of left eye 10/29/2022 1:12 PM EST [facility] Work Phone: COVID & INFLUENZA A/ B & RSV PCR, ROUTINE COVID & INFLUENZA A/B & RSV PCR, ROUTINE Microbiology Routine Close exposure to COVID-19 virus Ordered: 07/08/2024 [facility] Work Phone: Comment on above: Ordered: 07/08/2024 End: 07-12-2025 DBT Breast - bilateral screening GENOVEVA SCREENING W LILLY Radiology Routine Encounter for screening mammogram for malignant neoplasm of breast 1 Occurrences starting 06/12/2024 until 07/12/2025 [facility] Work Phone: Comment on above: 1 Occurrences starting 06/12/2024 until 07/12/2025 End: 10-28-2023 Diagnostic mammography computer-aided detcj [facility] DIAGNOSTIC RT Radiology Routine Abnormal mammogram 1 Occurrences starting 09/28/2022 until 10/28/2023 [facility] Work Phone: Comment on above: 1 Occurrences starting 09/28/2022 until 10/28/2023 ECG B/O W INTERP (ME D OFFICE) ECG B/O W INTERP (MED OFFICE) ECG Routine PXE (pseudoxanthoma elasticum) Ordered: 06/20/2022 [facility] Work Phone: Comment on above: Ordered: 06/20/2022 End: 10-16-2023 ECG COMPLETE ECG COMPLETE ECG Routine Gastroesophageal reflux disease with esophagitis, unspecified whether hemorrhage 1 Occurrences starting 10/16/2022 until 10/16/2023 [facility] Work Phone: Comment on above: 1 Occurrences starting 10/16/2022 until 10/16/2023 ECG COMPLETE ECG COMPLETE ECG 10/16/2022 2:04 PM [facility] End: 04-30-2024 EGD DIAGNOSTIC EGD DIAGNOSTIC Endoscopy Routine Gastroesophageal reflux disease, unspecified whether esophagitis present 1 Occurrences starting 04/30/2023 until 04/30/2024 [facility] Work Phone: Comment on above: 1 Occurrences starting 04/30/2023 until 04/30/2024 EMG(NEURO/NI) EMG(NEURO/NI) EM G Routine Pain in both hands Ordered: 05/03/2022 [facility] Work Phone: Comment on above: Ordered: 05/03/2022 End: 04-25-2024 EMG(NEURO/NI) EMG(NEURO/NI) EMG Routine Numbness and tingling in right hand 1 Occurrences starting 04/25/2023 until 04/25/2024 [facility] Work Phone: Comment on above: 1 Occurrences starting 04/25/2023 until 04/25/2024 MG Breast Screening GENOVEVA SCREENIN G Radiology Routine Encounter for screening mammogram for breast cancer 10/10/2023 1:07 PM [facility] Work Phone: End: 01-22-2025 MG Breast Screening GENOVEVA SCREENING Radiology Routine Encounter for gynecological examination (general) (routine) without abnormal findings Encounter for screening mammogram for breast cancer 1 Occurrences starting 12/24/2023 until 01/22/2025 [facility] Work Phone: Comment on above: 1 Occurrences starting 12/24/2023 until 01/22/2025 MG Breast Screening GENOVEVA SCREENIN G Radiology Routine Encounter for gynecological examination (general) (routine) without abnormal findings Encounter for screening mammogram for breast cancer 10/21/2024 2:30 PM EST [facility] Work Phone: MR Lumbar spine [facility] End: 01-24-2023 Mri brain brain stem w/o w/contrast material MRI BRAIN WO/W IVCON Radiology Routine 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) Vertigo Memory deficits New daily persistent headache 1 Occurrences starting 12/25/2021 until 01/24/2023 [facility] Work Phone: Comment on above: 1 Occurrences starting 12/25/2021 until 01/24/2023 Oph bmtry prtl coher intrfrmtry io lens pwr favio 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 W/ IOL CALC OPHT Imaging Routine Combined 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 cataract of both eyes Ordered: 04/03/2022 [facility] Work Phone: Comment on above: Ordered: 04/03/2022 OT PLAN OF CARE CERTIFICATION OT PLAN OF CARE CERTIFICATION Procedures Routine Difficulty with household tasks Impaired mobility and personal care Personal care impairment Complaints of difficulty with reading Blindness right eye category 3, blindness left eye category 4 Ordered: 09/19/2022 [facility] Comment on above: Ordered: 09/19/2022 PAP TEST PAP TEST Lab Rohan reynaga Encounter for gynecological examination (general) (routine) without abnormal findings Encounter for screening for human papillomavirus (HPV) Pap smear for cervical cancer screening 12/24/2023 1:43 PM EDT [facility] End: 07-09-2025 Polysomnogram POLYSOMNOGRAM (PSG) Procedures Routine DAYSI (obstructive sleep apnea) 1 Occurrences starting 07/09/2024 until 07/09/2025 [facility] Work Phone: Comment on above: 1 Occurrences starting 07/09/2024 until 07/09/2025 End: 10-08-2025 Polysomnogram POLYSOMNOGRAM (PSG) Procedures Routine Snoring Excessive daytime sleepiness Non-restorative sleep PLMD (periodic limb movement disorder) Primary hypertension 1 Occurrences starting 10/08/2024 until 10/08/2025 [facility] Work Phone: Comment on above: 1 Occurrences starting 10/08/2024 until 10/08/2025 End: 07-28-2023 Radiologic exam chest 2 views XR CHEST 2V FRONTAL/LAT Radiology Routine Acute cough 1 Occurrences starting 06/28/2022 until 07/28/2023 [facility] Work Phone: Comment on above: 1 Occurrences starting 06/28/2022 until 07/28/2023 Revj/rpr oprative wo und anterior segment 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 Leaking of conjunctival drainage bleb [facility] End: 01-03-2023 Screening mammography bi 2-view breast inc cad GENOVEVA SCREENING Radiology Routine Encounter for screening mammogram for breast cancer 1 Occurrences starting 12/04/2021 until 01/03/2023 [facility] Work Phone: Comment on above: 1 Occurrences starting 12/04/2021 until 01/03/2023 Tdap vaccine 7 yrs/> im TDAP VAC CINE, AGE 7+ YR (ADACEL, BOOSTRIX) Immunization/Injection Routine Need for vaccination Ordered: 03/01/2025 [facility] Work Phone: Comment on above: Ordered: 03/01/2025 End: 10-28-2023 Us breast uni real time with image limited US BREAST LTD RT Radiology Routine Abnormal mammogram 1 Occurrences starting 09/28/2022 until 10/28/2023 [facility] Work Phone: Comment on above: 1 Occurrences starting 09/28/2022 until 10/28/2023 End: 10-31-2023 XR HAND GENERAL 3V PA/LAT/OBL BILATERAL XR HAND GENERAL 3V PA/LAT/OBL BILATERAL Radiology Routine Pain in both hands 1 Occurrences starting 10/01/2022 until 10/31/2023 [facility] Work Phone: Comment on above: 1 Occurrences starting 10/01/2022 until 10/31/2023 XR HAND GENERAL 3V PA/LAT/OBL BILATERAL XR HAND GENERAL 3V PA/LAT/OBL BILATERAL Radiology Routine Pain in both hands 10/01/2022 2:14 PM EST [facility] Work Phone: XR Spine Lumbar and Sacrum Views [facility] KAREN [facility] c [facility] c [facility] Immunizations Immunization Date Immunization Notes Care Provider Adwoa matthews 03-02-2025 tetanus toxoid, redu leona diphtheria toxoid, and acellular pertussis vaccine, adsorbed Mi Nurse Work Phone: [facility] 02-25-2025 diphtheria, tetanus toxoids and acellular pertussis vaccine, unspecified formulation Ifeoma Davis MD Work Phone: [facility] Payers Date Payer Category Payer Self-pay [id number] 2021 Medicaid [id number] 2021 Medicaid [id number] 2020 Medicaid [id number] 2019 Medicare (Managed Care) [facility] [id number] 2017 Unknown [facility] [place] [facility] [id number] 2017-Present [phone] [id number] [place] [address] O [id number] 2017 Unknown [id number] 2017 Unknown [id number] 2014 Unknown [id number] Unknown [id number] Unknown [id number] 462 Unknown [id number] 462 Unknown [id number] 462 Unknown [id number] 462 Unknown [id number] 462 Unknown [id number] 462 Unknown [id number] 462 Unknown [id number] 462 Unknown [id number] 462 Social History Date Type Detail Facility Start: 12-09-2014 End: 03-24-2025 Tobacco smoking status NHIS Never smoked tobacco [facility] Work Phone: Start: 11-28-2021 End: 04-22-2025 Alcohol intake Current non-drinker of alcohol (finding) [facility] Start: 11-21-2020 History SDOH Social Connections Phone 5 [facility] Start: 11-21-2020 History SDOH Social Connections Mosque 3 [facility] Start: 11-21-2020 History SDOH Social Connections Membership 1 [facility] Start: 11-21-2020 History SDOH Physica l Activity DPW 7 [facility] Start: 11-21-2020 History SDOH Physica l Activity MPS 2 [facility] Start: 1970 Sex Assigned At Not on file [facility] Start: 12-15-2021 End: 06-25-2022 Exposure to SARS-CoV-2 (event) Not sure [facility] Work Phone: Start: 12-09-2014 End: 03-24-2025 Tobacco use and exposure Smokeless tobacco non-user [facility] Start: 1970 Sex Assigned At Female [facility] Start: 11-20-2021 End: 11-06-2023 Tobacco smoking status NHIS Unknown if ever smoked [facility] Start: 11-21-2020 End: 12-24-2023 History of Social function [facility] Work Phone: Start: 11-21-2020 End: 12-24-2023 Social connection and isolation panel [facility] Work Phone: Do you belong to any clubs or organizations such as methodist groups, unions, fraternal or athletic groups, or school groups? Yes [facility] Work Phone: Are you now , , , , never or living with a partner? [facility] Work Phone: Start: 08-03-2012 Adult Depression Screening Assessment 0 [facility] Work Phone: Do you feel stress - tense, restless, nervous, or anxious, or unable to sleep at night because your mind is troubled all the time - these days [OSQ] Only a little [facility] Work Phone: Start: 09-18-2022 Gender identity Identifies as female gender (finding) [facility] Start: 09-18-2022 Sexual orientation Heterosexual (fin gil) [facility] Start: 11-30-2024 Sex Female (finding[facility] NEGATED: Highlighted rowStart: NINF History of tobacco use Passive smoker [facility] Medical Equipment Procedure Code Equipment Code Equipment Origin al Text Equipment Identifier Dates Lens Acrysof Ultrasert +14.5 Diopter Acrylic Iol 1 Piece Foldable Uv Blue - [id number] Start: 06-25-2022 Lens Acrysof Ultrasert +15.5 Diopter Acrylic Iol 1 Piece Foldable Uv Blue - [id number] Start: 11-15-2022 Functional Status Date Assessment Result Facility 12-14-2014 Are you deaf, or do you have serious difficulty hearing No 12/14/2014 10:27 AM EDT Celeste Gomez LPN No [facility] 12-14-2014 Are you blind, or do you have serious difficulty seeing, even when wearing glasses Yes 12/14/2014 10:27 AM DEVANT Celeste Gomez LPN Yes [facility] 12-14-2014 Do you have serious difficulty walking or climbing stairs No 12/14/2014 10:27 AM Celeste Bass LPN No [facility] 12-14-2014 Do you have difficul ty dressing or bathing No 12/14/2014 10:27 AM EDT Celeste Gomez LPN No [facility] 12-14-2014 Because of a physica l, mental, or emotional condition, do you have difficulty doing errands alone such as visiting a physician's office or shopping No 12/14/2014 10:27 AM EDT Celeste Gomez LPN No [facility] Mental Status Date Assessment Result Facility 12-14-2014 Because of a physica l, mental, or emotional condition, do you have serious difficulty concentrating, remembering, or making decisions No 12/14/2014 10:27 AM EDCeleste Napier LPN No [facility] Clinical Notes 11-28-2021 to 05-17-2025 Telephone Encounter - Satish Hunter - 05/17/2025 4:44 PM EDTTelephone Encounter - Satish Hunter - 05/17/2025 4:44 PM EDTTelephone Encounter - Ifeoma Davis MD - 04/28/2025 5:22 PM EDT Note Date & Type Note Facility 05-17-2025 Telephone encounter Note Images from the original note were not included. Fax received from [facility] dated 05/15/25, regarding New Rx Fax placed on provider desk for review/signature. [facility] 05-17-2025 Miscellaneous Notes Images from the original note were not included. Fax received from [facility] dated 05/15/25, regarding New Rx Fax placed on provider desk for review/signature. documented in this encounter [facility] 04-29-2025 Telephone encounter Note Call placed to patient and notified of below with verbalized understanding. Mallory Morrison RN [facility] 04-29-2025 Miscellaneous Notes Call placed to patient and notified of below with verbalized understanding. Mallory Morrison RN Filed the medication as requested Pt called in to see if provider had called in a steroid for her. I let her know that the provider had not gotten to the message as of yet. Please call and advise. Spring Peñaloza RN Patient calls to report that the topical medication ordered for poison boo isn't working to help the itch. Patient's daughter is a pharmacist and told her to request a steroid pill to help dry the spots up. Patient requests it be sent to [facility]. Please review and advise, Mallory Morrison RN documented in this encounter [facility] 04-28-2025 Telephone encounter Note Filed the medication as requested [facility] 04-28-2025 Telephone encounter Note Pt called in to see if provider had called in a steroid for her. I let her know that the provider had not gotten to the message as of yet. Please call and advise. Spring Peñaloza RN [facility] 04-28-2025 Telephone encounter Note Patient calls to report that the topical medication ordered for poison boo isn't working to help the itch. Patient's daughter is a pharmacist and told her to request a steroid pill to help dry the spots up. Patient requests it be sent to [facility]. Please review and advise, Mallory Morrison RN [facility] 04-22-2025 Telephone encounter Note The following approved medication requests have been transmitted electronically. Requested Prescriptions Signed Prescriptions Disp Refills fluconazole (DIFLUCAN) 150 mg tablet 10 tablet 0 Sig: Take 1 tablet by mouth once daily for 10 days. Authorizing Provider: IFEOMA DAVIS MA [facility] 04-22-2025 Miscellaneous Notes The following approved medication requests have been transmitted electronically. Requested Prescriptions Signed Prescriptions Disp Refills fluconazole (DIFLUCAN) 150 mg tablet 10 tablet 0 Sig: Take 1 tablet by mouth once daily for 10 days. Authorizing Provider: IFEOMA DAVIS MA I sent new rx. Ifeoma Flores MD [facility] called for clarification on Fluconazole 150 mg instructions: 1 tab daily for 10 days (repeat in 3 days if needed) # 10. Please clarify and let Liliana Javier know. documented in this encounter [facility] 04-22-2025 Telephone encounter Note I sent new rx. Ifeoma Flores MD [facility] 04-22-2025 Telephone encounter Note [facility] called for clarification on Fluconazole 150 mg instructions: 1 tab daily for 10 days (repeat in 3 days if needed) # 10. Please clarify and let Liliana Javier know. [facility] 04-22-2025 Instructions Ifeoma Davis MD - 04/22/2025 11:30 AM EDT We discussed your eye condition and recent surgery: - You reported ongoing issues with fluid leakage and discomfort following your eye surgery. The fluid leakage has improved, and your eye pressure is now stable. Continue following up with your explosive ordnance specialist as scheduled. - You mentioned a droopy eyelid as a result of the surgery, which is expected and healing well. No further action is needed at this time. We discussed the rash and itching under your breasts: - You have intertrigo, likely caused by trapped moisture and a fungal infection. - I prescribed Fluconazole (oral antifungal) to take once daily for 10 days. - I also prescribed Nystatin powder to apply once daily to the affected area to keep it dry and treat the fungal infection. - After completing the antifungal treatment, we may consider a soothing steroid cream if needed. We discussed your poison boo: - You have small areas of poison boo on your hand, right elbow, and left forearm. - I prescribed Kenalog cream (a steroid) to apply to the affected areas twice daily to reduce itching and inflammation. We discussed your concerns about Wellbutrin: - You feel that Wellbutrin is no longer effective and that you are experiencing brain fog. - I increased your Wellbutrin dose to 150 mg daily. Please monitor how you feel with this adjustment and let me know if it helps. We discussed your sleep issues and CPAP use: - You reported difficulty tolerating your CPAP machine, which has led to poor sleep. Insurance has stopped covering the device. - We discussed the Inspire device as a potential alternative for managing your sleep apnea. This involves a surgical procedure and ongoing follow-up. You will need to see an ENT specialist to determine if you are a candidate. Please let me know if you would like to pursue this option. We discussed your hip pain and arthritis: - You mentioned ongoing hip pain and limited mobility. You have an MRI scheduled for May 07 to evaluate your hip further. Please follow up with me after the MRI to discuss the results and next steps. Medications prescribed today: - Fluconazole: Take one tablet daily for 10 days. - Nystatin powder: Apply once daily to the affected area. - Kenalog cream: Apply twice daily to poison boo spots. - Wellbutrin: Increased to 150 mg daily. Follow-up instructions: - Continue using the prescribed medications as directed. - Monitor your symptoms and let me know if the rash, itching, or poison boo does not improve. - Follow up with your explosive ordnance specialist as scheduled. - Attend your MRI appointment on May 07 for your hip. - Let me know if you would like to proceed with an ENT referral for the Inspire device. Please contact the office if you have any questions or concerns. documented in this encounter [facility] 04-22-2025 Note HNO ID: [id number] Author: IFEOMA DAVIS MD Service: ? Author Type: Physician Type: Progress Notes Filed: 04/22/2025 12:54 Note Text: Reason for Visit Follow up HPI Allie Lynn is a 54-year-old female with a history of glaucoma, scoliosis, and sleep apnea, presenting for evaluation of recent eye surgery complications, intertrigo, and poison boo exposure. She is accompanied by a friend, who is providing additional history. Allie recently underwent eye surgery at the [facility] due to a significant decrease in intraocular pressure to zero, which posed a risk of vision loss. She reports experiencing excessive fluid leakage from her eye, which disrupted her sleep and caused discomfort. Despite initial treatment with a large contact lens, the leakage persisted, leading to further surgical intervention. She notes that her eye now appears droopy but is healing well, with improved intraocular pressure. She also reports a persistent big pocket of weird fluid near her eye, which was evaluated by Dr. Marie yesterday. She reports a recent onset of an itchy rash in the intermammary area, which she has been applying anti-itch lotion to for the past two days without relief. She also reports exposure to poison boo while pulling weeds, resulting in small itchy spots on her fingers, right elbow, and left forearm. Allie has a history of sleep apnea and has been using a CPAP machine, but reports difficulty keeping the mask on during the night, leading to poor sleep quality. She expresses interest in exploring the Inspire device as an alternative treatment. She also reports taking Percocet, Benadryl, and trazodone for sleep, but continues to experience insomnia. She is currently taking Wellbutrin for depression, but reports that it no longer seems effective and requests a dosage adjustment. She also mentions a recent weight gain and expresses interest in resuming exercise once her energy levels improve. Allie has a history of scoliosis and arthritis, and reports chronic hip pain that limits her mobility. She is scheduled for an MRI on May 07 to evaluate the need for a hip replacement. She also mentions a previous injury to her hip, which she believes may have caused a torn band that has not been corrected. She reports difficulty with short-term memory, frequently misplacing items such as keys, glasses, and credit cards. She expresses concern about her cognitive decline and mentions considering assisted living as an option. She also reports visual hallucinations, describing seeing a perfect eyeball with green or purple colors and eyelashes, which she believes may be related to her eye condition. She is currently taking multiple medications and expresses interest in having her medications organized into pill packets for easier management. She also mentions a recent dental visit at [facility], where she discussed treatment options for her teeth, including bonding, Invisalign, and a crown. She expresses frustration with the cost of the proposed treatments and requests a more affordable plan. SOCIAL HISTORY[1] Past medical history, appointments, medications, allergies reviewed. Pertinent Lab/Diagnostic Studies are reviewed and discussed today Current Outpatient Medications: azithromycin (ZITHROMAX Z-JEANINE) 250 mg tablet guaiFENesin (MUCINEX) 600 mg 12 hr tablet prednisoLONE acetate (PRED FORTE) 1 % ophthalmic suspension traZODone (DESYREL) 100 mg tablet meloxicam (MOBIC) 15 mg tablet potassium chloride (K-TAB) 10 mEq tablet escitalopram oxalate (LEXAPRO) 10 mg tablet gabapentin (NEURONTIN) 100 mg capsule atorvastatin (LIPITOR) 40 mg tablet zolpidem (AMBIEN) 5 mg tablet SAW PALMETTO ORAL MAGNESIUM ORAL COLLAGEN MISC docosahexaenoic acid/epa (FISH OIL ORAL) amLODIPine (NORVASC) 2.5 mg tablet cevimeline (EVOXAC) 30 mg capsule fluticasone (FLONASE) 50 mcg/actuation nasal spray omeprazole (PRILOSEC) 20 mg capsule lisinopril-hydroCHLOROthiazide (ZESTORETIC) 10-12.5 mg per tablet cyclobenzaprine (FLEXERIL) 10 mg tablet cyanocobalamin, vitamin B-12, (VITAMIN B-12 ORAL) L.acid/B.animalis,bifidum/FOS (PROBIOTIC COMPLEX ORAL) biotin/calcium carbonate (BIOTIN-CALCIUM ORAL) vitamin B complex (B COMPLEX-VITAMIN B12 ORAL) aspirin, enteric coated (ASPIR-LOW) 81 mg EC tablet erythromycin (ROMYCIN) 5 mg/gram (0.5 %) ophthalmic ointment fluconazole (DIFLUCAN) 150 mg tablet nystatin (MYCOSTATIN) powder triamcinolone (KENALOG) 0.025 % cream buPROPion XL (WELLBUTRIN XL) 150 mg 24 hr tablet estradiol (VIVELLE-DOT) 0.1 mg/24 hr patch Health Maintenance Hepatitis B Vaccine(1 of 3 - 19+ 3-dose series) Shingrix Vaccine(1 of 2) Pneumococcal Vaccine: 50+(1 of 1 - PCV) Medicare Advantage Annual Wellness Visit Mammogram Screening@ Review Of Systems Constitutional: (+) fatigue, (+) insomnia Eyes: (+) ocular discharge, (+) eyelid drooping, (+) eyelid pruritus, (more content not included)... [facility] 04-22-2025 History of Presen t illness Narrative Reason for Visit Follow up HPI Allie Lynn is a 54-year-old female with a history of glaucoma, scoliosis, and sleep apnea, presenting for evaluation of recent eye surgery complications, intertrigo, and poison boo exposure. She is accompanied by a friend, who is providing additional history. Allie recently underwent eye surgery at the [facility] due to a significant decrease in intraocular pressure to zero, which posed a risk of vision loss. She reports experiencing excessive fluid leakage from her eye, which disrupted her sleep and caused discomfort. Despite initial treatment with a large contact lens, the leakage persisted, leading to further surgical intervention. She notes that her eye now appears droopy but is healing well, with improved intraocular pressure. She also reports a persistent big pocket of weird fluid near her eye, which was evaluated by Dr. Marie yesterday. She reports a recent onset of an itchy rash in the intermammary area, which she has been applying anti-itch lotion to for the past two days without relief. She also reports exposure to poison boo while pulling weeds, resulting in small itchy spots on her fingers, right elbow, and left forearm. Allie has a history of sleep apnea and has been using a CPAP machine, but reports difficulty keeping the mask on during the night, leading to poor sleep quality. She expresses interest in exploring the Inspire device as an alternative treatment. She also reports taking Percocet, Benadryl, and trazodone for sleep, but continues to experience insomnia. She is currently taking Wellbutrin for depression, but reports that it no longer seems effective and requests a dosage adjustment. She also mentions a recent weight gain and expresses interest in resuming exercise once her energy levels improve. Allie has a history of scoliosis and arthritis, and reports chronic hip pain that limits her mobility. She is scheduled for an MRI on May 07 to evaluate the need for a hip replacement. She also mentions a previous injury to her hip, which she believes may have caused a torn band that has not been corrected. She reports difficulty with short-term memory, frequently misplacing items such as keys, glasses, and credit cards. She expresses concern about her cognitive decline and mentions considering assisted living as an option. She also reports visual hallucinations, describing seeing a perfect eyeball with green or purple colors and eyelashes, which she believes may be related to her eye condition. She is currently taking multiple medications and expresses interest in having her medications organized into pill packets for easier management. She also mentions a recent dental visit at [facility], where she discussed treatment options for her teeth, including bonding, Invisalign, and a crown. She expresses frustration with the cost of the proposed treatments and requests a more affordable plan. SOCIAL HISTORY[1] Past medical history, appointments, medications, allergies reviewed. Pertinent Lab/Diagnostic Studies are reviewed and discussed today Current Outpatient Medications: azithromycin (ZITHROMAX Z-JEANINE) 250 mg tablet guaiFENesin (MUCINEX) 600 mg 12 hr tablet prednisoLONE acetate (PRED FORTE) 1 % ophthalmic suspension traZODone (DESYREL) 100 mg tablet meloxicam (MOBIC) 15 mg tablet potassium chloride (K-TAB) 10 mEq tablet escitalopram oxalate (LEXAPRO) 10 mg tablet gabapentin (NEURONTIN) 100 mg capsule atorvastatin (LIPITOR) 40 mg tablet zolpidem (AMBIEN) 5 mg tablet SAW PALMETTO ORAL MAGNESIUM ORAL COLLAGEN MISC docosahexaenoic acid/epa (FISH OIL ORAL) amLODIPine (NORVASC) 2.5 mg tablet cevimeline (EVOXAC) 30 mg capsule fluticasone (FLONASE) 50 mcg/actuation nasal spray omeprazole (PRILOSEC) 20 mg capsule lisinopril-hydroCHLOROthiazide (ZESTORETIC) 10-12.5 mg per tablet cyclobenzaprine (FLEXERIL) 10 mg tablet cyanocobalamin, vitamin B-12, (VITAMIN B-12 ORAL) L.acid/B.animalis,bifidum/FOS (PROBIOTIC COMPLEX ORAL) biotin/calcium carbonate (BIOTIN-CALCIUM ORAL) vitamin B complex (B COMPLEX-VITAMIN B12 ORAL) aspirin, enteric coated (ASPIR-LOW) 81 mg EC tablet erythromycin (ROMYCIN) 5 mg/gram (0.5 %) ophthalmic ointment fluconazole (DIFLUCAN) 150 mg tablet nystatin (MYCOSTATIN) powder triamcinolone (KENALOG) 0.025 % cream buPROPion XL (WELLBUTRIN XL) 150 mg 24 hr tablet estradiol (VIVELLE-DOT) 0.1 mg/24 hr patch Health Maintenance Hepatitis B Vaccine(1 of 3 - 19+ 3-dose series) Shingrix Vaccine(1 of 2) Pneumococcal Vaccine: 50+(1 of 1 - PCV) Medicare Advantage Annual Wellness Visit Mammogram Screening@ Review Of Systems Constitutional: (+) fatigue, (+) insomnia Eyes: (+) ocular discharge, (+) eyelid drooping, (+) eyelid pruritus, (+) decreased vision Breast: (+) pruritic rash between breasts Musculoskeletal: (+) hip pain, (+) limited hip range of motion Skin: (+) pruritic rash right finger, (+) pruritic rash right elbow, (+) pruritic rash left forearm Neurological: (+) short-term memory loss, (+) mental fog, (-) falls Physical Exam BP 129/79 Pulse 79 Resp 16 Wt 66.5 kg (146 lb 9.6 oz) LMP 09/02/2011 (Approximate) BMI 27.70 kg/m GENERAL: NAD, alert and oriented. SKIN: Erythematous, pruritic rash noted on the intramammary area, in the upper breast between the breasts, on the area of contact and the in between chest consistent with intertrigo. Small erythematous lesions noted on the fingers, right elbow, and left forearm, consistent with poison boo exposure. HEAD: Normocephalic. EYES: PERRLA, EOMI, conjunctiva clear. EARS: External ears normal, canals clear, TM's normal. NOSE/SINUSES: Nares normal. Septum midline. LUNGS: Clear to auscultation bilaterally, no wheezes/rhonchi/rales. HEART: Regular rate and rhythm, no murmurs. No ectopy. EXTREMITIES: Normal, no deformities, no skin discoloration, no edema. NEURO: Awake, alert and oriented x3, cranial nerves II-XII grossly intact, normal gait, no involuntary motions. Assessment and Plan 1. Intertrigo (L30.4) Acute intertrigo with suspected secondary fungal infection in the intermammary region. - Start fluconazole 1 tablet daily for 10 days. - Start nystatin powder, apply once daily to affected area. - Educated patient on keeping the area dry and avoiding scratching. 2. Status post glaucoma surgery (Z98.83) Recent glaucoma surgery complicated by hypotony and persistent leakage, now resolved after surgical intervention; residual ptosis noted. - Refill erythromycin ophthalmic ointment as requested. 3. Primary hypertension (I10) Blood pressure well controlled at this visit. - Continue current management. 4. DAYSI (obstructive sleep apnea) (G47.33) CPAP therapy discontinued due to poor adherence and insurance coverage issues; persistent severe insomnia despite use of trazodone, Percocet, and Benadryl. - Discussed Inspire hypoglossal nerve stimulator as an alternative; explained surgical procedure, device function, and need for ENT evaluation to determine candidacy. - Patient to consider Inspire therapy and follow up as needed. 5. Poison boo dermatitis (L23.7) Localized poison boo dermatitis on hand, right elbow, and left forearm. - Start Kenalog cream, apply BID to affected areas. - Advised against oral steroids due to concurrent fungal infection. 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 Please excuse any unintended typographical errors. Recording using [employer] software for draft documentation of the visit was discussed with the patient/authorized parts representative; all questions welcomed and answered. Patient/authorized parts representative agreed to proceed Ifeoma Davis MD [1] Social History Tobacco Use Smoking status: Never Passive exposure: Never Smokeless tobacco: Never Vaping Use Vaping status: Never Used Substance Use Topics Alcohol use: No Drug use: No documented in this encounter [facility] 04-20-2025 Note HNO ID: [id number] Author: CYNTHIA RAMOS MD Service: ? Author Type: Physician Type: Progress Notes Filed: 04/28/2025 07:10 Note Text: Tmax 28 , 28 03/10/2019 ; Pachy 543 , 540 Family history Gonioscopy 03/10/2019 PTM OU with 2+ TMP Lasers and surgeries OD multiple injections; SLT 180 (inferior) 01/15/2020 (IOP 28--> 21); SLT superior 180 05/09/2021 (IOP 26-->19); TBX 10/26/2021 (IOP 24); 06/25/2022 PEIOL/suture of iridectomy (Dr. Eugene) OS multiple injections; SLT 180 (inferior angle) 01/08/2020 (IOP 28-->21); SLT superior 180 05/09/2021 (IOP 23-->22); TBX OS 09/14/2021 (IOP 29); PEIOL/bleb reduction 11/15/2022; bleb revision (conj advancement) for leak 03/25/2025 Ocular Medication Intol, Non-efficacy, barriers cosopt - not effective Timolol - not effective cosopt ? Effectiveness rhopressa ineffective Acetazolamide/nepataze - SOB, fatigue, weight loss, memory issues Generic brimonidine 0.2% and alphagan-P - dermatitis and body rash (no symptoms with alphagan-P) ALHAJI allergy Dorzolamide-timolol dermatitis body rash Currently using pred OS 4 x daily Testing -- HVF 08/20/2023 dense central scotoma, temporal sparing -- OCT 03/10/2019 OD mod sup>mild inf thinning, temp artifact; OS mild sup/inf thinning -- GCA 03/10/2019 thinning OU/retinal atrophy -- OCT macula 08/20/2023 OD diffuse macular atrophy; OS diffuse macular atrophy, possibly worse, concern for subretinal fluid -- OCT macula 02/18/2024 OD atrophy; OS scar/atrophy, full thickness hole -- OCT 10/13/2024 OD atrophy, no fluid; OS atrophy, nasal fluid stable, not in fovea (Z09) Follow-up examination after eye surgery (primary encounter diagnosis) Comment: h/o spontaneous bleb leak s/p bleb leak repair OS 03/25/25 (conj advancement flap) with Dr. 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 Eugene (for dysphotopsia) Plan: Lubrication as needed The potential for vision-threatening infection related to the bleb was discussed. The signs of infection and the importance of same-day medical attention if these signs develop were emphasized. 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 Bright feels this is stable since at least 2021; no further intervention to offer at this time (Z96.1) Pseudophakia of both eyes Comment: Clear, as above Plan: As above Has been working with [facility] for - progressive pseudoxanthoma elasticum macular atrophy (currently undergoing white cane training, occupational therapy) RTC 4 weeks VaTa I have confirmed and edited as necessary the relevant ophthalmic history, ROS, and the neuro exam findings as obtained by others. I have seen and examined this patient. I have discussed the case and the management of this patient's care with the Resident/Fellow/Nuclear Physicist, if applicable. I also have reviewed and agree with the assessment and plan as stated above and agree with all of its relevant components. Cynthia Ramos MD April 20, 2025 11:06 AM [facility] 04-20-2025 History of Presen t illness Narrative Tmax 28 , 28 03/10/2019 ; Pachy 543 , 540 Family history Gonioscopy 03/10/2019 PTM OU with 2+ TMP Lasers and surgeries OD multiple injections; SLT 180 (inferior) 01/15/2020 (IOP 28--> 21); SLT superior 180 05/09/2021 (IOP 26-->19); TBX 10/26/2021 (IOP 24); 06/25/2022 PEIOL/suture of iridectomy (Dr. Eugene) OS multiple injections; SLT 180 (inferior angle) 01/08/2020 (IOP 28-->21); SLT superior 180 05/09/2021 (IOP 23-->22); TBX OS 09/14/2021 (IOP 29); PEIOL/bleb reduction 11/15/2022; bleb revision (conj advancement) for leak 03/25/2025 Ocular Medication Intol, Non-efficacy, barriers cosopt - not effective Timolol - not effective cosopt ? Effectiveness rhopressa ineffective Acetazolamide/nepataze - SOB, fatigue, weight loss, memory issues Generic brimonidine 0.2% and alphagan-P - dermatitis and body rash (no symptoms with alphagan-P) ALHAJI allergy Dorzolamide-timolol dermatitis body rash Currently using pred OS 4 x daily Testing -- HVF 08/20/2023 dense central scotoma, temporal sparing -- OCT 03/10/2019 OD mod sup>mild inf thinning, temp artifact; OS mild sup/inf thinning -- GCA 03/10/2019 thinning OU/retinal atrophy -- OCT macula 08/20/2023 OD diffuse macular atrophy; OS diffuse macular atrophy, possibly worse, concern for subretinal fluid -- OCT macula 02/18/2024 OD atrophy; OS scar/atrophy, full thickness hole -- OCT 10/13/2024 OD atrophy, no fluid; OS atrophy, nasal fluid stable, not in fovea (Z09) Follow-up examination after eye surgery (primary encounter diagnosis) Comment: h/o spontaneous bleb leak s/p bleb leak repair OS 03/25/25 (conj advancement flap) with Dr. 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 Eugene (for dysphotopsia) Plan: Lubrication as needed The potential for vision-threatening infection related to the bleb was discussed. The signs of infection and the importance of same-day medical attention if these signs develop were emphasized. 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 Bright feels this is stable since at least 2021; no further intervention to offer at this time (Z96.1) Pseudophakia of both eyes Comment: Clear, as above Plan: As above Has been working with [facility] for - progressive pseudoxanthoma elasticum macular atrophy (currently undergoing white cane training, occupational therapy) RTC 4 weeks VaTa I have confirmed and edited as necessary the relevant ophthalmic history, ROS, and the neuro exam findings as obtained by others. I have seen and examined this patient. I have discussed the case and the management of this patient's care with the Resident/Fellow/Nuclear Physicist, if applicable. I also have reviewed and agree with the assessment and plan as stated above and agree with all of its relevant components. Cynthia Ramos MD April 20, 2025 11:06 AM documented in this encounter [facility] 04-20-2025 Instructions Cynthia Ramos MD - 04/20/2025 11:03 AM EDT Prednisolone LEFT EYE 4 x daily for 1 month total post surgery then begin taper: 3 x daily x 2 week then 2 x daily x 2 week then 1 x daily x 2 week then STOP Stop shield 1 week after surgery All other restrictions for 2 weeks total after surgery documented in this encounter [facility] 04-11-2025 Note HNO ID: [id number] Author: AISLINN REYES PA-C Service: ? Author Type: Physician [employer] Type: Progress Notes Filed: 04/11/2025 13:41 Note Text: [facility] CLINIC NOTE Ifeoma Davis MD [address] [facility] [id number] Allie Lynn is a 54-year-old female with a history of HTN, wet macular degeneration, and PXE, presenting with cough and sinus congestion. Allie reports onset of symptoms following her 9th eye surgery last week. She notes a productive cough, describing the expectorated material as gross and thick, and sinus congestion with drainage. She has been using cough drops, but feels she needs something stronger. She denies fevers. She is concerned about the potential impact of coughing on her recent eye surgery and prefers a prescription medication over OTC options due to cost coverage. 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 She is preparing for her 10th surgery and anticipates several more in the future. She reports that prior to her last surgery, she was at risk of losing her eye due to low intraocular pressure. She is under the care of multiple specialists at the [facility]. She also has a history of HTN, for which she is currently taking lisinopril-HCTZ and amlodipine. She has been on lisinopril for a long time. She lives alone and manages her household independently. She mentions feeling dizzy at times, particularly when coughing deeply. She is also expecting her first grandchild and is concerned about being sick around the . CURRENT MEDICATIONS[1] PAST MEDICAL HISTORY[2] PAST SURGICAL HISTORY Procedure Laterality Date ARTHROSCOPY KNEE DIAGNOSTIC W/WO SYNOVIAL BX SPX 1995 Arthroscopy, knee AVASTIN (BEVACIZUMAB) 1.25MG INTRAVITREAL INJECTION OD (RIGHT EYE) Right x 5 (03/12/17) DELIVERY ONLY 1988, 1991, 1993 , low cervical-x 3 COLONOSCOPY FLX DX W/COLLJ SPEC WHEN PFRMD 06/22/2019 Colonoscopy COLONOSCOPY SCREENING 05/30/[address] MAXILLOFAC/SINUS 06/29/2015 normal EGD W/O BRSH SPEC VARICIES INJ 05/30/2023 Small hiatal hernia, fundic gland polyp, mild chronic gastritis ENDOMETRIAL BX W/WO ENDOCERVIX BX W/O DILAT SPX 02/18/2012 ESOPHAGOGASTRODUODENOSCOPY TRANSORAL DIAGNOSTIC 02/03/2018 EGD INCISION OF EYE, TRABECULECTOMY Right 10/26/2021 LASER SELECTA 2 TRABECULOPLASTY Left 01/08/2020 LASER TRABECULOPLASTY OD (RIGHT EYE) Right 10/26/2021 PAST SURGICAL HISTORY OF Bilateral trigger finger release PAST SURGICAL HISTORY OF Left laser surgery to repair capsular rupture PAST SURGICAL HISTORY OF Left 03/25/2025 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 (Left) on 03/25/25 REMV CATARACT EXTRACAP,INSERT LENS Right 06/25/2022 REMV CATARACT EXTRACAP,INSERT LENS Left 11/15/2022 PEIOL OS and bleb revision (bleb reduction) x 11/15/2022- Dr. Cynthia Ramos M.D. [address] [id number] SOCIAL HISTORY[3] Physical Exam: BP 110/62 Pulse 82 Temp 36.2 ?C (97.2 ?F) Resp 20 Wt 66.1 kg (145 lb 11.6 oz) LMP 09/02/2011 (Approximate) SpO2 98% BMI 27.53 kg/m? General appearance: Well appearing, alert, in no acute distress, well-hydrated, well nourished. Skin: Skin color, texture, turgor normal, no suspicious rashes or lesions Eyes: Anicteric sclera. Pupils are equally round and reactive to light. Extraocular movements are intact. Ears: External ears normal, canals clear, Negative findings: Left tympanic color is hutchinson, Right tympanic color is hutchinson Nose/Sinuses: Negative except for clear rhinorrhea Oropharynx: Lips, mucosa, and tongue normal, teeth and gums normal, oropharynx normal Neck: supple, no lymphadenopathy noted. Lungs: Lungs clear to auscultation. No wheezing, rhonchi, rales. Unlabored on room air Heart: RRR without murmur, gallop, or rubs. No ectopy Assessment/Plan: 1. Viral URI with cough (J06.9) Symptoms consistent with a viral upper respiratory infection, including cough and sinus congestion. No fevers reported. Patient has a history of multiple eye surgeries for wet macular degeneration and is currently on lisinopril and amlodipine for hypertension. - Prescribed Tessalon Perles to help alleviate the cough. - Prescribed guaifenesin BID for 5 days to aid in decongestion. - Prescribed azithromycin, advised to wait a couple of days before starting as the infection is likely viral. - Patient understands and agrees with the treatment plan. Recording using [employer] software for draft documentation of the visit was discussed with the patient/authorized parts representative; all questions welcomed and answered. Patient/authorized parts representative agreed to proceed. TRINH Perez, PALexC MDM [1] Current Outpatient Medications Medication Sig prednisoLONE acetate (PRED FORTE) 1 % ophthalmic suspension Use 1 drop in the left eye four times daily. traZODone (DESYREL (more content not included)... [facility] 04-11-2025 History of Presen t illness Narrative Images from the original note were not included. [facility] NOTE Ifeoma Davis MD [address] [facility] [id number] Allie Lynn is a 54-year-old female with a history of HTN, wet macular degeneration, and PXE, presenting with cough and sinus congestion. Allie reports onset of symptoms following her 9th eye surgery last week. She notes a productive cough, describing the expectorated material as gross and thick, and sinus congestion with drainage. She has been using cough drops, but feels she needs something stronger. She denies fevers. She is concerned about the potential impact of coughing on her recent eye surgery and prefers a prescription medication over OTC options due to cost coverage. 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 She is preparing for her 10th surgery and anticipates several more in the future. She reports that prior to her last surgery, she was at risk of losing her eye due to low intraocular pressure. She is under the care of multiple specialists at the [facility]. She also has a history of HTN, for which she is currently taking lisinopril-HCTZ and amlodipine. She has been on lisinopril for a long time. She lives alone and manages her household independently. She mentions feeling dizzy at times, particularly when coughing deeply. She is also expecting her first grandchild and is concerned about being sick around the . CURRENT MEDICATIONS[1] PAST MEDICAL HISTORY[2] PAST SURGICAL HISTORY Procedure Laterality Date ARTHROSCOPY KNEE DIAGNOSTIC W/WO SYNOVIAL BX SPX 1995 Arthroscopy, knee AVASTIN (BEVACIZUMAB) 1.25MG INTRAVITREAL INJECTION OD (RIGHT EYE) Right x 5 (03/12/17) DELIVERY ONLY 1988, 1991, 1993 , low cervical-x 3 COLONOSCOPY FLX DX W/COLLJ SPEC WHEN PFRMD 06/22/2019 Colonoscopy COLONOSCOPY SCREENING 05/30/[address] MAXILLOFAC/SINUS 06/29/2015 normal EGD W/O BRSH SPEC VARICIES INJ 05/30/2023 Small hiatal hernia, fundic gland polyp, mild chronic gastritis ENDOMETRIAL BX W/WO ENDOCERVIX BX W/O DILAT SPX 02/18/2012 ESOPHAGOGASTRODUODENOSCOPY TRANSORAL DIAGNOSTIC 02/03/2018 EGD INCISION OF EYE, TRABECULECTOMY Right 10/26/2021 LASER SELECTA 2 TRABECULOPLASTY Left 01/08/2020 LASER TRABECULOPLASTY OD (RIGHT EYE) Right 10/26/2021 PAST SURGICAL HISTORY OF Bilateral trigger finger release PAST SURGICAL HISTORY OF Left laser surgery to repair capsular rupture PAST SURGICAL HISTORY OF Left 03/25/2025 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 (Left) on 03/25/25 REMV CATARACT EXTRACAP,INSERT LENS Right 06/25/2022 REMV CATARACT EXTRACAP,INSERT LENS Left 11/15/2022 PEIOL OS and bleb revision (bleb reduction) x 11/15/2022- Dr. Cynthia Ramos M.D. [place] [id number] SOCIAL HISTORY[3] Physical Exam: BP 110/62 Pulse 82 Temp 36.2 C (97.2 F) Resp 20 Wt 66.1 kg (145 lb 11.6 oz) LMP 09/02/2011 (Approximate) SpO2 98% BMI 27.53 kg/m General appearance: Well appearing, alert, in no acute distress, well-hydrated, well nourished. Skin: Skin color, texture, turgor normal, no suspicious rashes or lesions Eyes: Anicteric sclera. Pupils are equally round and reactive to light. Extraocular movements are intact. Ears: External ears normal, canals clear, Negative findings: Left tympanic color is hutchinson, Right tympanic color is hutchinson Nose/Sinuses: Negative except for clear rhinorrhea Oropharynx: Lips, mucosa, and tongue normal, teeth and gums normal, oropharynx normal Neck: supple, no lymphadenopathy noted. Lungs: Lungs clear to auscultation. No wheezing, rhonchi, rales. Unlabored on room air Heart: RRR without murmur, gallop, or rubs. No ectopy Assessment/Plan: 1. Viral URI with cough (J06.9) Symptoms consistent with a viral upper respiratory infection, including cough and sinus congestion. No fevers reported. Patient has a history of multiple eye surgeries for wet macular degeneration and is currently on lisinopril and amlodipine for hypertension. - Prescribed Tessalon Perles to help alleviate the cough. - Prescribed guaifenesin BID for 5 days to aid in decongestion. - Prescribed azithromycin, advised to wait a couple of days before starting as the infection is likely viral. - Patient understands and agrees with the treatment plan. Recording using [employer] software for draft documentation of the visit was discussed with the patient/authorized parts representative; all questions welcomed and answered. Patient/authorized parts representative agreed to proceed. Aislinn Reyes, TORIS, PA-C MDM [1] Current Outpatient Medications Medication Sig prednisoLONE acetate (PRED FORTE) 1 % ophthalmic suspension Use 1 drop in the left eye four times daily. traZODone (DESYREL) 100 mg tablet Take 1 tablet by mouth daily at bedtime. erythromycin (ROMYCIN) 5 mg/gram (0.5 %) ophthalmic ointment Use 1 application in the left eye three times a day. (Patient taking differently: Use 1 application in the left eye daily at bedtime.) meloxicam (MOBIC) 15 mg tablet Take 1 tablet by mouth once daily. potassium chloride (K-TAB) 10 mEq tablet Take 1 tablet by mouth once daily. escitalopram oxalate (LEXAPRO) 10 mg tablet Take 1 tablet by mouth once daily. gabapentin (NEURONTIN) 100 mg capsule Take 1 capsule by mouth daily at bedtime for 181 days. atorvastatin (LIPITOR) 40 mg tablet Take 1 tablet by mouth once daily. zolpidem (AMBIEN) 5 mg tablet Take 1 tablet by mouth at bedtime as needed (for insomnia.) for up to 90 days. SAW PALMETTO ORAL Take by mouth once daily. MAGNESIUM ORAL Take by mouth once daily. COLLAGEN MISC docosahexaenoic acid/epa (FISH OIL ORAL) Take by mouth once daily. amLODIPine (NORVASC) 2.5 mg tablet Take 1 tablet by mouth once daily. cevimeline (EVOXAC) 30 mg capsule Take 1 capsule by mouth three times a day. buPROPion SR (WELLBUTRIN SR) 100 mg 12 hr tablet Take 1 tablet by mouth once daily. estradiol (VIVELLE-DOT) 0.1 mg/24 hr patch Apply 1 Patch as directed two times a week. TWICE WEEKLY (Patient taking differently: Apply 1 patch as directed one time a week.) fluticasone (FLONASE) 50 mcg/actuation nasal spray Use 2 Sprays in each nostril once daily. Rinse mouth after use. omeprazole (PRILOSEC) 20 mg capsule Take 1 capsule by mouth once daily. lisinopril-hydroCHLOROthiazide (ZESTORETIC) 10-12.5 mg per tablet Take 1 tablet by mouth once daily. cyclobenzaprine (FLEXERIL) 10 mg tablet Take 1 tablet by mouth two times a day as needed. cyanocobalamin, vitamin B-12, (VITAMIN B-12 ORAL) Take by mouth once daily. L.acid/B.animalis,bifidum/FOS (PROBIOTIC COMPLEX ORAL) Take by mouth once daily. biotin/calcium carbonate (BIOTIN-CALCIUM ORAL) Take by mouth. vitamin B complex (B COMPLEX-VITAMIN B12 ORAL) Take by mouth once daily. aspirin, enteric coated (ASPIR-LOW) 81 mg EC tablet Take 1 tablet by mouth once daily. azithromycin (ZITHROMAX Z-JEANINE) 250 mg tablet 2 tablets by mouth first day then 1 tablet the next 4 days guaiFENesin (MUCINEX) 600 mg 12 hr tablet Take 1 tablet by mouth two times a day. benzonatate (TESSALON PERLE) 100 mg capsule Take 1 capsule by mouth three times a day as needed for cough for up to 7 days. No current facility-administered medications for this visit. [2] Past Medical History: No date: Abnormal EKG No date: Anemia No date: Angioid streaks 04/03/2022: Combined 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 cataract, left eye No date: Coronary artery disease No date: Fibromyalgia No date: GERD (gastroesophageal reflux disease) No date: Glaucoma No date: HLD (hyperlipidemia) No date: HTN (hypertension) No date: Legally blind Comment: cat 4 right and 5 left No date: Macular degeneration disease Comment: bilateral No date: Mitral prolapse Comment: per No date: Mitral valve disorders(424.0) No date: Mitral valve stenosis and aortic valve stenosis No date: Myalgia and myositis, unspecified 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) 1996: Rheumatic fever No date: Rheumatic heart disease, unspecified No date: Tubular adenoma of colon No date: Unspecified essential hypertension [3] Social History Tobacco Use Smoking status: Never Passive exposure: Never Smokeless tobacco: Never Vaping Use Vaping status: Never Used Substance Use Topics Alcohol use: No Drug use: No documented in this encounter [facility] 04-11-2025 Instructions Aislinn Reyes PA-C - 04/11/2025 1:30 PM EDT We discussed your recent symptoms and concerns: - You have been diagnosed with a viral upper respiratory infection (URI). This is likely viral, not bacterial. - To help manage your symptoms: - Start taking Tessalon Perles to alleviate your cough. This is a medication you swallow. - Take Guaifenesin (a decongestant) twice daily for 5 days to help with congestion. - I am prescribing Azithromycin (an antibiotic), but I recommend waiting a couple of days before starting it, as this appears to be viral. The antibiotic will not address the cough but can be used if symptoms worsen or persist, suggesting a bacterial infection. - Continue monitoring your symptoms. If your cough worsens, you develop a fever, or your symptoms do not improve, please contact our office. documented in this encounter [facility] 04-03-2025 Telephone encounter Note Received a page that the patient called regarding inability to get eye drops prescribed yesterday due to a drug interaction. I called the patient back and was unable to reach them on multiple attempts. I left a message acknowledging the patient's prior call and concerns and asked them to call back [phone] at any time when available to discuss further. Reynaldo Alford MD Ophthalmology Resident [facility] Work Phone: 04-03-2025 Miscellaneous Notes Received a page that the patient called regarding inability to get eye drops prescribed yesterday due to a drug interaction. I called the patient back and was unable to reach them on multiple attempts. I left a message acknowledging the patient's prior call and concerns and asked them to call back [phone] at any time when available to discuss further. Reynaldo Alford MD Ophthalmology Resident documented in this encounter [facility] 04-02-2025 History of Presen t illness Narrative -PO 1w 1d bleb leak repair OS 03/25/25 (conj advancement flap) -now on tobradex qid OS, e-mycin qhs -healing well, no leak Change t-dex to PF and use that qid -can stop e-mycin -sees Paparizos 04/20 By signing my name below, I, Maria Luisa Villareal, attest that this documentation has been prepared under the direction and in the presence of Dr. Adriana Lund. Electronically signed, Marguerite Molina April 02, 2025 I personally performed the services described in this documentation. All medical record entries made by the mercedesibe were at my direction and in my presence. I have reviewed the chart and discharge instructions (if applicable) and agree that the record reflects my personal performance and is accurate and complete. I have confirmed and edited as necessary the relevant HPI, ophthalmic history, ROS, and neuro exam findings as obtained by others. I have seen and examined Allie Lynn. I have discussed the case and the management of this patient's care with the Resident/Fellow, if applicable. I also have reviewed, edited as necessary, and agree with the assessment and plan as stated above and agree with all of its relevant components. documented in this encounter [facility] 04-02-2025 Note HNO ID: [id number] Author: ADRIANA LUND MD Service: ? Author Type: Physician Type: Progress Notes Filed: 04/02/2025 10:40 Note Text: -PO 1w 1d bleb leak repair OS 03/25/25 (conj advancement flap) -now on tobradex qid OS, e-mycin qhs -healing well, no leak Change t-dex to PF and use that qid -can stop e-mycin -sees Fuad 04/20 By signing my name below, I, Maria Luisa Villareal, attest that this documentation has been prepared under the direction and in the presence of Dr. Adriana Lund. Electronically signed, Marguerite Molina April 02, 2025 I personally performed the services described in this documentation. All medical record entries made by the mercedesibe were at my direction and in my presence. I have reviewed the chart and discharge instructions (if applicable) and agree that the record reflects my personal performance and is accurate and complete. I have confirmed and edited as necessary the relevant HPI, ophthalmic history, ROS, and neuro exam findings as obtained by others. I have seen and examined Allie Lynn. I have discussed the case and the management of this patient's care with the Resident/Fellow, if applicable. I also have reviewed, edited as necessary, and agree with the assessment and plan as stated above and agree with all of its relevant components. [facility] 03-31-2025 Telephone encounter Note patient called, she lost her White Cap eye medication, requesting a new script [facility] Work Phone: 03-31-2025 Miscellaneous Notes patient called, she lost her White Cap eye medication, requesting a new script documented in this encounter [facility] 03-31-2025 Telephone encounter Note Ordered as requested Regards, Ifeoma Davis MD [facility] 03-31-2025 Miscellaneous Notes Ordered as requested Regards, Ifeoma Davis MD Patient calls to report that she needs a refill of trazodone and it is too soon to refill as prescription on file is for one tablet at bedtime and she was instructed at her last visit she could take two tablets. Reviewed OV notes and didn't see anything in regards to increasing dose. Pended 100 mg dose for review. Please review and advise, Mallory Morrison RN documented in this encounter [facility] 03-31-2025 Telephone encounter Note I contacted the patient and left a voicemail informing her that you will be seeing her instead of the other physician. Just a heads-up. [facility] Work Phone: 03-31-2025 Miscellaneous Notes I contacted the patient and left a voicemail informing her that you will be seeing her instead of the other physician. Just a heads-up. I moved her back to my Saturday clinic schedule - I will see her Saturday instead of Dr. Ayala The patient has requested that you visit on Saturday to examine her eye. YES. I can see her in [place] tomorrow (Sat) if she wants. Otherwise she has an appt Saturday with Dr. Ayala. I am on site and happy to come over if needed. The patient reports experiencing tearing from the left eye approximately four to five times daily. Is this considered normal? [phone] sx: 03/25/2025 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 [[id number]] - Eye - Left documented in this encounter [facility] 03-31-2025 Telephone encounter Note I moved her back to my Saturday clinic schedule - I will see her Saturday instead of Dr. Ayala [facility] 03-31-2025 Telephone encounter Note Patient calls to report that she needs a refill of trazodone and it is too soon to refill as prescription on file is for one tablet at bedtime and she was instructed at her last visit she could take two tablets. Reviewed OV notes and didn't see anything in regards to increasing dose. Pended 100 mg dose for review. Please review and advise, Mallory Morrison RN [facility] 03-31-2025 Telephone encounter Note The patient has requested that you visit on Saturday to examine her eye. [facility] 03-30-2025 Telephone encounter Note YES. I can see her in [place] tomorrow (Sat) if she wants. Otherwise she has an appt Saturday with Dr. Ayala. I am on site and happy to come over if needed. [facility] 03-30-2025 Telephone encounter Note The patient reports experiencing tearing from the left eye approximately four to five times daily. Is this considered normal? [phone] sx: 03/25/2025 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 [[id number]] - Eye - Left [facility] 03-29-2025 Note HNO ID: [id number] Author: ADRIANA LUND MD Service: ? Author Type: Physician Type: Progress Notes Filed: 04/02/2025 10:40 Note Text: [facility] 03-26-2025 Note Addended by: BRITTANEY MCKEON on: 03/26/2025 08:50 PM Modules accepted: Orders [facility] 03-26-2025 Miscellaneous Notes Addended by: BRITTANEY MCKEON on: 03/26/2025 08:50 PM Modules accepted: Orders Received page that patient had called with concern over eye tearing. Spoke to them on the phone: Patient is POD1 of revision of trabeculectomy bleb of the left eye with Dr. Lund. Attempted to call 2x and went to . Left voicemail encouraging to call back and provided return and callback precautions. Patient then called back and said the fluid is decreasing in frequency and no severe pain but does have foreign body sensation at times due to a stitch. Says she has no ointment. Will provide erythromycin ointment to help with FBS from stitch in her eye. Discussed importance of one week follow up with Dr. Emanuel on 04/02/2025. Return precautions given. If any significant change in symptoms, worsening of vision, pain or new symptoms please don't hesitate to call back or go to the ED. The eye clinic can be reached at [phone] and you can ask to speak to the transcription specialist local hazmat driver. Brittaney Mckeon MD Ophthalmology Resident, [facility] documented in this encounter [facility] 03-26-2025 Telephone encounter Note Received page that patient had called with concern over eye tearing. Spoke to them on the phone: Patient is POD1 of revision of trabeculectomy bleb of the left eye with Dr. Lund. Attempted to call 2x and went to . Left voicemail encouraging to call back and provided return and callback precautions. Patient then called back and said the fluid is decreasing in frequency and no severe pain but does have foreign body sensation at times due to a stitch. Says she has no ointment. Will provide erythromycin ointment to help with FBS from stitch in her eye. Discussed importance of one week follow up with Dr. Emanuel on 04/02/2025. Return precautions given. If any significant change in symptoms, worsening of vision, pain or new symptoms please don't hesitate to call back or go to the ED. The eye clinic can be reached at [phone] and you can ask to speak to the transcription specialist local hazmat driver. Brittaney Mckeon MD Ophthalmology Resident, [facility] 03-24-2025 History and physical note Images from the original note were not included. [facility] HISTORY AND PHYSICAL EXAMINATION SERVICE DATE: 03/24/2025 SERVICE TIME: 9:13 AM PRIMARY CARE PHYSICIAN: Ifeoma Davis MD Assessment Patient has the following medical conditions which may affect kathleen-operative course: Hypertension Assessment: controlled on rx Last 14 BP Last 14 Encounter BP Readings: Date: BP: 03/24/2025 108/66 12/29/2024 112/66 11/03/2024 114/78 10/31/2024 141/88 10/12/2024 106/63 10/07/2024 124/62 09/29/2024 138/88 09/24/2024 122/81 09/15/2024 118/66 07/08/2024 128/82 04/11/2024 122/70 03/31/2024 128/70 12/24/2023 126/82 11/18/2023 124/72 Mixed hyperlipidemia Assessment: c/w statin PAD (peripheral artery disease) ([facility]) Assessment: 20-39% bilateral carotid artery stenosis per last 06/2024 BPPV (benign paroxysmal positional vertigo) Assessment: rx as needed VHD (valvular heart disease) Assessment: Echo 2021 with no notation of aortic sclerosis as noted in her chart, also only other VHD is trace PVR and TVR on last echo AORTIC VALVE The aortic valve cusps are structurally normal. There is no aortic valve regurgitation. Tricuspid aortic valve. The peak gradient is 10 mmHg (peak velocity = 154.4 cm/s). 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 Clinical Frailty Scale: 4. Apparently vulnerable STOP-Bang Score: Snores loudly Has or is being treated for high blood pressure Patient over 50 years old Denies feeling tired, fatigued, or sleepy during the daytime Has not been observed to stop breathing or choking/gasping during sleep BMI less than or equal to 35 kg/m^2 Does not have a large neck Non-male patient STOP-Bang Score: 3 [id number] Score: Age: <65 Sex: female CHF history: No Hypertension history: Yes Stroke/TIA/thromboembolism history: No Vascular disease history: Yes Diabetes history: No [id number] Score: 3 ARISCAT Score: Age: 51-80 Preoperative SpO2: >=96% Respiratory infection in the last month: No Preoperative anemia: No Surgical incision: peripheral Duration of surgery: <2 hrs Emergency procedure: No ARISCAT Score: 3 I - PHYSICAL EVALUATION AIRWAY Patient intubated: No. Tracheostomy tube not present Mallampati: III. TM distance: >3 FB. Neck ROM: full ROM without neurological symptoms. Mouth opening: adequate. Short neck: no. Thick neck: no Vicente present: no Lip Bite Test: I Microretrognathia/Micronagthia/R ecessed Chin: No DENTAL Dental findings: teeth intact. II - ANESTHESIA PLAN Anesthetic Plan: other Beta Agustin Monitoring Plan Post Procedure Analgesic Plan Prepared for Surgery: optimally prepared for surgery. 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 Lund, Adriana Bustos MD for consultation. My final recommendation will be communicated back to the requesting physician by way of shared medical record or letter. Subjective The patient has the following: COVID-19 Immunization Status This patient has no relevant Health Maintenance data. CHIEF COMPLAINT: Pre-op exam HPI: Allie Lynn is a 54 year old seen for PAC due to scheduled above surgery because Leaking of conjunctival drainage bleb. 03/23/25, Dr. Figueroa Urgent visit for bleb leak OS [facility] by [facility] doctor for bleb leak OS X 4 days IOP was 0 yesterday Today 03/23/2025 Brisk leak OS - IOP 7.8 - AC deep - no choroidals - Discussed conservative management vs surgery, discussed R/B/A of each - BCL placed today 03/23/2025 - timolol BID OS, moxifloxacin QID OS - follow up with Dr. Lowery 04/06/25 - will post for bleb revision 04/12 and if still leaking 04/06 will revise 04/12 REVIEW OF SYSTEMS: General: No weight loss, malaise or fevers. Neurological: +BPPV. No history of TIA's, stroke, AIR ROUTE CONTROLLER tumor, impaired sensorium, hemiplegia, paraplegia or quadraplegia. No neurological symptoms or problems. Respiratory: Positive for: obstructive sleep apnea and CPAP/BiPAP noncompliant. Negative for: asthma, COPD, current cough, dyspnea, pneumonia within 6 weeks, tobacco use and URI < 2 weeks. Cardiovascular: Positive for: CAD, hyperlipidemia, hypertension, murmur/valvular heart disease and PVD (20-39%) Patient's last office visit The following tests and/or procedures were not performed: cardiac stents. Negative for: abdominal aortic aneurysm, AICD/PPM, angina, anticoagulation therapy, arrhythmia, atrial fibrillation, chest pain, CHF, congenital heart defect, DVT/PE, recent MS, PTCA, open heart surgery and valve surgery. GI: Negative for: abdominal pain, dysphagia, GERD, hepatitis, irritable bowel syndrome, inflammatory bowel disease, liver disease, nausea, pancreatitis, vomiting and ETOH >2 drinks/day. : No history of dysuria, frequency or incontinence, stones or chronic kidney disease. No difficulty urinating, nocturia > 1 time per night or hematuria. CRIBBER: Negative for abnormal vaginal bleeding, abnormal vaginal discharge. Endocrine: No history of diabetes. Has not taken steroids within the past 30 days. No history of endocrinological symptoms or problems. Hematology: Positive for: chronic anti-coagulation/platelet meds. Patient is on anti-coagulation/platelet medication(s): Aspirin. Negative for: anemia, bruises/bleeds easily and transfusion of at least 4 units within 72 hours prior to surgery. Oncology: No history of CA metastasis, chemo within 30 days, or radiotherapy within 90 days. No history of oncological symptoms or problems. Psych: Positive for: anxiety and depression. Negative for: Marijuana Use. Musculoskeletal: Positive for: back pain and joint pain (left hip). Skin: PXE Implanted Devices: No implanted devices. 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 Macular degeneration disease bilateral Mitral prolapse per Mitral valve disorders(424.0) Mitral valve stenosis and aortic valve stenosis Myalgia and myositis, unspecified PXE (pseudoxanthoma elasticum) Rheumatic fever 1995 Rheumatic heart disease, unspecified Tubular adenoma of colon Unspecified essential hypertension PAST SURGICAL HISTORY Procedure Laterality Date ARTHROSCOPY KNEE DIAGNOSTIC W/WO SYNOVIAL BX SPX 1995 Arthroscopy, knee AVASTIN (BEVACIZUMAB) 1.25MG INTRAVITREAL INJECTION OD (RIGHT EYE) Right x 5 (03/12/17) DELIVERY ONLY 1988, 1991, 1993 , low cervical-x 3 COLONOSCOPY FLX DX W/COLLJ SPEC WHEN PFRMD 06/22/2019 Colonoscopy COLONOSCOPY SCREENING 05/30/[address] MAXILLOFAC/SINUS 06/29/2015 [facility] 05/30/2023 Small hiatal hernia, fundic gland polyp, mild chronic gastritis ENDOMETRIAL BX W/WO ENDOCERVIX BX W/O DILAT SPX 02/18/2012 ESOPHAGOGASTRODUODENOSCOPY TRANSORAL DIAGNOSTIC 02/03/2018 EGD INCISION OF EYE, TRABECULECTOMY Right 10/26/2021 LASER SELECTA 2 TRABECULOPLASTY Left 01/08/2020 LASER TRABECULOPLASTY OD (RIGHT EYE) Right 10/26/2021 PAST SURGICAL HISTORY OF Bilateral trigger finger release PAST SURGICAL HISTORY OF Left laser surgery to repair capsular rupture REMV CATARACT EXTRACAP,INSERT LENS Right 06/25/2022 REMV CATARACT EXTRACAP,INSERT LENS Left 11/15/2022 PEIOL OS and bleb revision (bleb reduction) x 11/15/2022- Dr. Cynthia Ramos M.D. S BALLOON,UTERINE ABLATION [id number] FAMILY HISTORY Problem Relation Age of Onset Heart Father Age 61 Ovarian cancer Maternal Grandmother Heart Maternal Grandfather Cancer Paternal Grandmother Breast Heart Son MS Cancer Maternal Aunt 55 ovarian cancer Glaucoma No Family History Detached Retina No Family History Macular Degen No Family History Blindness No Family History Amblyopia No Family History Malig Hyperthermia No Family History Anesthesia Problems No Family History Social History Tobacco Use Smoking status: Never Passive exposure: Never Smokeless tobacco: Never Vaping Use Vaping status: Never Used Substance Use Topics Alcohol use: No Drug use: No Prior to Admission medications as of 03/24/25 1503 Medication Sig Last Dose Taking moxifloxacin (VIGAMOX) 0.5 % ophthalmic solution Use in the left eye three times a day. Yes timolol maleate (TIMOPTIC) 0.5 % ophthalmic solution Use 1 drop in the left eye two times a day. Yes meloxicam (MOBIC) 15 mg tablet Take 1 tablet by mouth once daily. Yes potassium chloride (K-TAB) 10 mEq tablet Take 1 tablet by mouth once daily. Yes escitalopram oxalate (LEXAPRO) 10 mg tablet Take 1 tablet by mouth once daily. Yes gabapentin (NEURONTIN) 100 mg capsule Take 1 capsule by mouth daily at bedtime for 181 days. Yes atorvastatin (LIPITOR) 40 mg tablet Take 1 tablet by mouth once daily. Yes zolpidem (AMBIEN) 5 mg tablet Take 1 tablet by mouth at bedtime as needed (for insomnia.) for up to 90 days. Yes SAW PALMETTO ORAL Take by mouth once daily. Yes MAGNESIUM ORAL Take by mouth once daily. Yes COLLAGEN MISC Yes docosahexaenoic acid/epa (FISH OIL ORAL) Take by mouth once daily. Yes amLODIPine (NORVASC) 2.5 mg tablet Take 1 tablet by mouth once daily. Yes cevimeline (EVOXAC) 30 mg capsule Take 1 capsule by mouth three times a day. Patient taking differently: Take 30 mg by mouth once daily. Yes traZODone (DESYREL) 50 mg tablet Take 1 tablet by mouth daily at bedtime. Yes buPROPion SR (WELLBUTRIN SR) 100 mg 12 hr tablet Take 1 tablet by mouth once daily. Yes estradiol (VIVELLE-DOT) 0.1 mg/24 hr patch Apply 1 Patch as directed two times a week. TWICE WEEKLY Patient taking differently: Apply 1 patch as directed one time a week. Yes fluticasone (FLONASE) 50 mcg/actuation nasal spray Use 2 Sprays in each nostril once daily. Rinse mouth after use. Yes omeprazole (PRILOSEC) 20 mg capsule Take 1 capsule by mouth once daily. Yes lisinopril-hydroCHLOROthiazide (ZESTORETIC) 10-12.5 mg per tablet Take 1 tablet by mouth once daily. Yes cyclobenzaprine (FLEXERIL) 10 mg tablet Take 1 tablet by mouth two times a day as needed. Yes cyanocobalamin, vitamin B-12, (VITAMIN B-12 ORAL) Take by mouth once daily. Yes L.acid/B.animalis,bifidum/FOS (PROBIOTIC COMPLEX ORAL) Take by mouth once daily. Yes biotin/calcium carbonate (BIOTIN-CALCIUM ORAL) Take by mouth. Yes vitamin B complex (B COMPLEX-VITAMIN B12 ORAL) Take by mouth once daily. Yes aspirin, enteric coated (ASPIR-LOW) 81 mg EC tablet Take 1 tablet by mouth once daily. Yes No medication comments found. ALLERGIES Allergen Reactions Darvocet A500 [Prop* Mental Status Change Nitrofurantoin Other: See Comments Loss of conciousness Propoxyphene Other: See Comments Hallucinations Tramadol Other: See Comments Loss of conciousness Hydrocodone Bitartr* Itching Opioids - Morphine * Itching Ultram [Tramadol Hc* Vomiting Vicodin [Hydrocodon* Itching Objective PHYSICAL EXAM: General: alert and oriented (x3) and healthy appearance. Pertinent negatives noted - not distressed. Skin: normal color, no rash or lesions. HEENT: EOM intact and pupils equal round. Pertinent negatives noted - no carotid bruit. Cardiovascular: regular rate and rhythm, normal S1 and S2, no rub, murmurs, or gallop. Respiratory: normal breath sounds, no wheezes or crackles. No chest wall deformity or tenderness. Abdomen: soft. Pertinent negatives noted - not tender. Extremities: no deformity, no edema or tenderness, no joint swelling or clubbing. Neurological: normal cognition and motor skills. Gait normal. No weakness or sensory deficit. PAIN ASSESSMENT: VITALS: BP 108/66 Pulse 80 Resp 18 Ht 5' 1 (1.55m) Wt 147 lb (66.7kg) SpO2 96% LMP 09/02/2011 BMI 27.79 kg/(m^2). Diagnostic tests reviewed for today's visit: Lab Value Units Date High Low HB 12.1 g/dL 03/24/2025 15.5 11.5 HCT 36.8 % 03/24/2025 46.0 36.0 WBC 7.86 k/uL 03/24/2025 11.00 3.70 PLT 375 k/uL 03/24/2025 400 150 NA 136 mmol/L 03/24/2025 144 136 K 4.1 mmol/L 03/24/2025 5.1 3.7 GLUC 94 mg/dL 03/24/2025 99 74 BUN 20 mg/dL 03/24/2025 21 7 CREAT 0.99 mg/dL 03/24/2025 0.96 0.58 PTSEC No results within date range. INR No results within date range. APTT No results within date range. ALT No results within date range. AST No results within date range. TBILI No results within date range. TSH 0.745 mIU/L 11/03/2024 4.200 0.270 Lab Value Units Date High Low HCGQT No results within date range. UHCG No results within date range. HCG, BODY* No results within date range. Lab Value Units Date High Low ABORHD No results within date range. ABSCREEN No results within date range. Hemoglobin A1C (%) Date Value 05/03/2022 5.3 No results found for this or any previous visit (from the past 8760 hours). Recent Results (from the past 07453 hours) ECHO Collection Time: 07/09/22 3:24 PM Impression CONCLUSIONS: - Exam indication: Palpitations - The left ventricle is normal in size. Left ventricular systolic function is normal. EF = 55 5% (visual est.) Grade I left ventricular diastolic dysfunction. - The right ventricle is normal in size. Right ventricular systolic function is normal. - There are no significant valvular abnormalities. - Exam was compared with the prior echocardiographic exam performed on 08/11/2019, no significant change. * * * Final * * * Instructions Given to Patient: Instructions located in the after visit summary. Patient given verbal and written preop instructions and voices comprehension and compliance. SIGNATURE: Emily Chaparro APRN.CNP PATIENT NAME: Allie Lynn DATE: March 24, 2025 TIME: 3:02 PM PAGER/CONTACT #: [facility] 03-24-2025 History and physical note Images from the original note were not included. [facility] HISTORY AND PHYSICAL EXAMINATION SERVICE DATE: 03/24/2025 SERVICE TIME: 9:13 AM PRIMARY CARE PHYSICIAN: Ifeoma Davis MD Assessment Patient has the following medical conditions which may affect kathleen-operative course: Hypertension Assessment: controlled on rx Last 14 BP Last 14 Encounter BP Readings: Date: BP: 03/24/2025 108/66 12/29/2024 112/66 11/03/2024 114/78 10/31/2024 141/88 10/12/2024 106/63 10/07/2024 124/62 09/29/2024 138/88 09/24/2024 122/81 09/15/2024 118/66 07/08/2024 128/82 04/11/2024 122/70 03/31/2024 128/70 12/24/2023 126/82 11/18/2023 124/72 Mixed hyperlipidemia Assessment: c/w statin PAD (peripheral artery disease) ([facility]) Assessment: 20-39% bilateral carotid artery stenosis per last US 06/2024 BPPV (benign paroxysmal positional vertigo) Assessment: rx as needed VHD (valvular heart disease) Assessment: Echo 2021 with no notation of aortic sclerosis as noted in her chart, also only other VHD is trace PVR and TVR on last echo AORTIC VALVE The aortic valve cusps are structurally normal. There is no aortic valve regurgitation. Tricuspid aortic valve. The peak gradient is 10 mmHg (peak velocity = 154.4 cm/s). 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 Clinical Frailty Scale: 4. Apparently vulnerable STOP-Bang Score: Snores loudly Has or is being treated for high blood pressure Patient over 50 years old Denies feeling tired, fatigued, or sleepy during the daytime Has not been observed to stop breathing or choking/gasping during sleep BMI less than or equal to 35 kg/m^2 Does not have a large neck Non-male patient STOP-Bang Score: 3 [id number] Score: Age: <65 Sex: female CHF history: No Hypertension history: Yes Stroke/TIA/thromboembolism history: No Vascular disease history: Yes Diabetes history: No [id number] Score: 3 ARISCAT Score: Age: 51-80 Preoperative SpO2: >=96% Respiratory infection in the last month: No Preoperative anemia: No Surgical incision: peripheral Duration of surgery: <2 hrs Emergency procedure: No ARISCAT Score: 3 I - PHYSICAL EVALUATION AIRWAY Patient intubated: No. Tracheostomy tube not present Mallampati: III. TM distance: >3 FB. Neck ROM: full ROM without neurological symptoms. Mouth opening: adequate. Short neck: no. Thick neck: no Vicente present: no Lip Bite Test: I Microretrognathia/Micronagthia/R ecessed Chin: No DENTAL Dental findings: teeth intact. II - ANESTHESIA PLAN Anesthetic Plan: other Beta Agustin Monitoring Plan Post Procedure Analgesic Plan Prepared for Surgery: optimally prepared for surgery. 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 Lund, Adriana Bustos MD for consultation. My final recommendation will be communicated back to the requesting physician by way of shared medical record or letter. Subjective The patient has the following: COVID-19 Immunization Status This patient has no relevant Health Maintenance data. CHIEF COMPLAINT: Pre-op exam HPI: Allie Lynn is a 54 year old seen for PAC due to scheduled above surgery because Leaking of conjunctival drainage bleb. 03/23/25, Dr. Figueroa Urgent visit for bleb leak OS Sent by [facility] doctor for bleb leak OS X 4 days IOP was 0 yesterday Today 03/23/2025 Brisk leak OS - IOP 7.8 - AC deep - no choroidals - Discussed conservative management vs surgery, discussed R/B/A of each - BCL placed today 03/23/2025 - timolol BID OS, moxifloxacin QID OS - follow up with Dr. Lowery 04/06/25 - will post for bleb revision 04/12 and if still leaking 04/06 will revise 04/12 REVIEW OF SYSTEMS: General: No weight loss, malaise or fevers. Neurological: +BPPV. No history of TIA's, stroke, AIR ROUTE CONTROLLER tumor, impaired sensorium, hemiplegia, paraplegia or quadraplegia. No neurological symptoms or problems. Respiratory: Positive for: obstructive sleep apnea and CPAP/BiPAP noncompliant. Negative for: asthma, COPD, current cough, dyspnea, pneumonia within 6 weeks, tobacco use and URI < 2 weeks. Cardiovascular: Positive for: CAD, hyperlipidemia, hypertension, murmur/valvular heart disease and PVD (20-39%) Patient's last office visit The following tests and/or procedures were not performed: cardiac stents. Negative for: abdominal aortic aneurysm, AICD/PPM, angina, anticoagulation therapy, arrhythmia, atrial fibrillation, chest pain, CHF, congenital heart defect, DVT/PE, recent MS, PTCA, open heart surgery and valve surgery. GI: Negative for: abdominal pain, dysphagia, GERD, hepatitis, irritable bowel syndrome, inflammatory bowel disease, liver disease, nausea, pancreatitis, vomiting and ETOH >2 drinks/day. : No history of dysuria, frequency or incontinence, stones or chronic kidney disease. No difficulty urinating, nocturia > 1 time per night or hematuria. CRIBBER: Negative for abnormal vaginal bleeding, abnormal vaginal discharge. Endocrine: No history of diabetes. Has not taken steroids within the past 30 days. No history of endocrinological symptoms or problems. Hematology: Positive for: chronic anti-coagulation/platelet meds. Patient is on anti-coagulation/platelet medication(s): Aspirin. Negative for: anemia, bruises/bleeds easily and transfusion of at least 4 units within 72 hours prior to surgery. Oncology: No history of CA metastasis, chemo within 30 days, or radiotherapy within 90 days. No history of oncological symptoms or problems. Psych: Positive for: anxiety and depression. Negative for: Marijuana Use. Musculoskeletal: Positive for: back pain and joint pain (left hip). Skin: PXE Implanted Devices: No implanted devices. 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 Macular degeneration disease bilateral Mitral prolapse per Mitral valve disorders(424.0) Mitral valve stenosis and aortic valve stenosis Myalgia and myositis, unspecified PXE (pseudoxanthoma elasticum) Rheumatic fever 1995 Rheumatic heart disease, unspecified Tubular adenoma of colon Unspecified essential hypertension PAST SURGICAL HISTORY Procedure Laterality Date ARTHROSCOPY KNEE DIAGNOSTIC W/WO SYNOVIAL BX SPX 1995 Arthroscopy, knee AVASTIN (BEVACIZUMAB) 1.25MG INTRAVITREAL INJECTION OD (RIGHT EYE) Right x 5 (03/12/17) DELIVERY ONLY 1988, 1991, 1993 , low cervical-x 3 COLONOSCOPY FLX DX W/COLLJ SPEC WHEN PFRMD 06/22/2019 Colonoscopy COLONOSCOPY SCREENING 05/30/[address] MAXILLOFAC/SINUS 06/29/2015 normal EGD W/O BRSH SPEC VARICIES INJ 05/30/2023 Small hiatal hernia, fundic gland polyp, mild chronic gastritis ENDOMETRIAL BX W/WO ENDOCERVIX BX W/O DILAT SPX 02/18/2012 ESOPHAGOGASTRODUODENOSCOPY TRANSORAL DIAGNOSTIC 02/03/2018 EGD INCISION OF EYE, TRABECULECTOMY Right 10/26/2021 LASER SELECTA 2 TRABECULOPLASTY Left 01/08/2020 LASER TRABECULOPLASTY OD (RIGHT EYE) Right 10/26/2021 PAST SURGICAL HISTORY OF Bilateral trigger finger release PAST SURGICAL HISTORY OF Left laser surgery to repair capsular rupture REMV CATARACT EXTRACAP,INSERT LENS Right 06/25/2022 REMV CATARACT EXTRACAP,INSERT LENS Left 11/15/2022 PEIOL OS and bleb revision (bleb reduction) x 11/15/2022- Dr. Cynthia Ramos M.D. S [place],UTERINE ABLATION [id number] FAMILY HISTORY Problem Relation Age of Onset Heart Father Age 61 Ovarian cancer Maternal Grandmother Heart Maternal Grandfather Cancer Paternal Grandmother Breast Heart Son MS Cancer Maternal Aunt 55 ovarian cancer Glaucoma No Family History Detached Retina No Family History Macular Degen No Family History Blindness No Family History Amblyopia No Family History Malig Hyperthermia No Family History Anesthesia Problems No Family History Social History Tobacco Use Smoking status: Never Passive exposure: Never Smokeless tobacco: Never Vaping Use Vaping status: Never Used Substance Use Topics Alcohol use: No Drug use: No Prior to Admission medications as of 03/24/25 1503 Medication Sig Last Dose Taking moxifloxacin (VIGAMOX) 0.5 % ophthalmic solution Use in the left eye three times a day. Yes timolol maleate (TIMOPTIC) 0.5 % ophthalmic solution Use 1 drop in the left eye two times a day. Yes meloxicam (MOBIC) 15 mg tablet Take 1 tablet by mouth once daily. Yes potassium chloride (K-TAB) 10 mEq tablet Take 1 tablet by mouth once daily. Yes escitalopram oxalate (LEXAPRO) 10 mg tablet Take 1 tablet by mouth once daily. Yes gabapentin (NEURONTIN) 100 mg capsule Take 1 capsule by mouth daily at bedtime for 181 days. Yes atorvastatin (LIPITOR) 40 mg tablet Take 1 tablet by mouth once daily. Yes zolpidem (AMBIEN) 5 mg tablet Take 1 tablet by mouth at bedtime as needed (for insomnia.) for up to 90 days. Yes SAW PALMETTO ORAL Take by mouth once daily. Yes MAGNESIUM ORAL Take by mouth once daily. Yes COLLAGEN MISC Yes docosahexaenoic acid/epa (FISH OIL ORAL) Take by mouth once daily. Yes amLODIPine (NORVASC) 2.5 mg tablet Take 1 tablet by mouth once daily. Yes cevimeline (EVOXAC) 30 mg capsule Take 1 capsule by mouth three times a day. Patient taking differently: Take 30 mg by mouth once daily. Yes traZODone (DESYREL) 50 mg tablet Take 1 tablet by mouth daily at bedtime. Yes buPROPion SR (WELLBUTRIN SR) 100 mg 12 hr tablet Take 1 tablet by mouth once daily. Yes estradiol (VIVELLE-DOT) 0.1 mg/24 hr patch Apply 1 Patch as directed two times a week. TWICE WEEKLY Patient taking differently: Apply 1 patch as directed one time a week. Yes fluticasone (FLONASE) 50 mcg/actuation nasal spray Use 2 Sprays in each nostril once daily. Rinse mouth after use. Yes omeprazole (PRILOSEC) 20 mg capsule Take 1 capsule by mouth once daily. Yes lisinopril-hydroCHLOROthiazide (ZESTORETIC) 10-12.5 mg per tablet Take 1 tablet by mouth once daily. Yes cyclobenzaprine (FLEXERIL) 10 mg tablet Take 1 tablet by mouth two times a day as needed. Yes cyanocobalamin, vitamin B-12, (VITAMIN B-12 ORAL) Take by mouth once daily. Yes L.acid/B.animalis,bifidum/FOS (PROBIOTIC COMPLEX ORAL) Take by mouth once daily. Yes biotin/calcium carbonate (BIOTIN-CALCIUM ORAL) Take by mouth. Yes vitamin B complex (B COMPLEX-VITAMIN B12 ORAL) Take by mouth once daily. Yes aspirin, enteric coated (ASPIR-LOW) 81 mg EC tablet Take 1 tablet by mouth once daily. Yes No medication comments found. ALLERGIES Allergen Reactions Darvocet A500 [Prop* Mental Status Change Nitrofurantoin Other: See Comments Loss of conciousness Propoxyphene Other: See Comments Hallucinations Tramadol Other: See Comments Loss of conciousness Hydrocodone Bitartr* Itching Opioids - Morphine * Itching Ultram [Tramadol Hc* Vomiting Vicodin [Hydrocodon* Itching Objective PHYSICAL EXAM: General: alert and oriented (x3) and healthy appearance. Pertinent negatives noted - not distressed. Skin: normal color, no rash or lesions. HEENT: EOM intact and pupils equal round. Pertinent negatives noted - no carotid bruit. Cardiovascular: regular rate and rhythm, normal S1 and S2, no rub, murmurs, or gallop. Respiratory: normal breath sounds, no wheezes or crackles. No chest wall deformity or tenderness. Abdomen: soft. Pertinent negatives noted - not tender. Extremities: no deformity, no edema or tenderness, no joint swelling or clubbing. Neurological: normal cognition and motor skills. Gait normal. No weakness or sensory deficit. PAIN ASSESSMENT: VITALS: BP 108/66 Pulse 80 Resp 18 Ht 5' 1 (1.55m) Wt 147 lb (66.7kg) SpO2 96% LMP 09/02/2011 BMI 27.79 kg/(m^2). Diagnostic tests reviewed for today's visit: Lab Value Units Date High Low HB 12.1 g/dL 03/24/2025 15.5 11.5 HCT 36.8 % 03/24/2025 46.0 36.0 WBC 7.86 k/uL 03/24/2025 11.00 3.70 PLT 375 k/uL 03/24/2025 400 150 NA 136 mmol/L 03/24/2025 144 136 K 4.1 mmol/L 03/24/2025 5.1 3.7 GLUC 94 mg/dL 03/24/2025 99 74 BUN 20 mg/dL 03/24/2025 21 7 CREAT 0.99 mg/dL 03/24/2025 0.96 0.58 PTSEC No results within date range. INR No results within date range. APTT No results within date range. ALT No results within date range. AST No results within date range. TBILI No results within date range. TSH 0.745 mIU/L 11/03/2024 4.200 0.270 Lab Value Units Date High Low HCGQT No results within date range. UHCG No results within date range. HCG, BODY* No results within date range. Lab Value Units Date High Low ABORHD No results within date range. ABSCREEN No results within date range. Hemoglobin A1C (%) Date Value 05/03/2022 5.3 No results found for this or any previous visit (from the past 8760 hours). Recent Results (from the past 32212 hours) ECHO Collection Time: 07/09/22 3:24 PM Impression CONCLUSIONS: - Exam indication: Palpitations - The left ventricle is normal in size. Left ventricular systolic function is normal. EF = 55 5% (visual est.) Grade I left ventricular diastolic dysfunction. - The right ventricle is normal in size. Right ventricular systolic function is normal. - There are no significant valvular abnormalities. - Exam was compared with the prior echocardiographic exam performed on 08/11/2019, no significant change. * * * Final * * * Instructions Given to Patient: Instructions located in the after visit summary. Patient given verbal and written preop instructions and voices comprehension and compliance. SIGNATURE: Emily Chaparro APRN.CNP PATIENT NAME: Allie Lynn DATE: March 24, 2025 TIME: 3:02 PM PAGER/CONTACT #: documented in this encounter [facility] 03-24-2025 Instructions Emily Chaparro APRN.CNP - 03/24/2025 3:02 PM EDT Images from the original note were not included. [facility] PATIENT PREOPERATIVE INSTRUCTIONS No ref. provider found has scheduled you for your procedure at this surgery center: [facility]: [phone] --[facility] [place], [address], [place] [address]. Please read below carefully for your personalized instructions. Dietary Restrictions: - No solid food after midnight. - You may have 12 ounces of clear liquids (water, clear juices such as apple juice or gatorade, carbonated beverages, clear tea, black coffee, jello) until 2 hours before scheduled arrival at facility. No red/purple coloring and no creamer/sugar Medications: Unless instructed differently below, stay on all of your medications until your surgery. If you start any new medications after today's visit, please contact your surgeon. Pre-Surgery Med Instructions Medication Instructions moxifloxacin (VIGAMOX) 0.5 % ophthalmic solution Per surgeon's instructions timolol maleate (TIMOPTIC) 0.5 % ophthalmic solution Per surgeon's instructions meloxicam (MOBIC) 15 mg tablet Do not take the day of surgery potassium chloride (K-TAB) 10 mEq tablet If you normally take this medication in the morning, take the morning of surgery. escitalopram oxalate (LEXAPRO) 10 mg tablet If you normally take this medication in the morning, take the morning of surgery. gabapentin (NEURONTIN) 100 mg capsule If you normally take this medication in the morning, take the morning of surgery. atorvastatin (LIPITOR) 40 mg tablet If you normally take this medication in the morning, take the morning of surgery. zolpidem (AMBIEN) 5 mg tablet Do not take the day of surgery SAW PALMETTO ORAL Do not take the day of surgery MAGNESIUM ORAL Do not take the day of surgery COLLAGEN MISC Do not take the day of surgery docosahexaenoic acid/epa (FISH OIL ORAL) Do not take the day of surgery amLODIPine (NORVASC) 2.5 mg tablet If you normally take this medication in the morning, take the morning of surgery. cevimeline (EVOXAC) 30 mg capsule If you normally take this medication in the morning, take the morning of surgery. traZODone (DESYREL) 50 mg tablet Do not take the day of surgery buPROPion SR (WELLBUTRIN SR) 100 mg 12 hr tablet If you normally take this medication in the morning, take the morning of surgery. estradiol (VIVELLE-DOT) 0.1 mg/24 hr patch If you normally take this medication in the morning, take the morning of surgery. fluticasone (FLONASE) 50 mcg/actuation nasal spray Continue as needed omeprazole (PRILOSEC) 20 mg capsule If you normally take this medication in the morning, take the morning of surgery. lisinopril-hydroCHLOROthiazide (ZESTORETIC) 10-12.5 mg per tablet If you normally take this medication in the morning, take the morning of surgery. cyclobenzaprine (FLEXERIL) 10 mg tablet Continue as needed cyanocobalamin, vitamin B-12, (VITAMIN B-12 ORAL) Do not take the day of surgery L.acid/B.animalis,bifidum/FOS (PROBIOTIC COMPLEX ORAL) Do not take the day of surgery biotin/calcium carbonate (BIOTIN-CALCIUM ORAL) Do not take the day of surgery vitamin B complex (B COMPLEX-VITAMIN B12 ORAL) Do not take the day of surgery aspirin, enteric coated (ASPIR-LOW) 81 mg EC tablet Do not take the day of surgery If you start any new medications after today's visit, please contact the surgeon's office. If you are currently using a oqho-ltd-yqdy injectable or oral medication for diabetes or weight loss such as Dulaglutide (Trulicity), Exenatide (Byetta, Bydureon), Liraglutide (Victoza, Saxenda), Semaglutide (Ozempic, Wegovy, Rybelsus), or Tirzepatide (Mounjaro), the medicine should be stopped at least 7 days before surgery. These medicines can cause food to remain in your stomach for a very long time and increase the risks from surgery and anesthesia. Not stopping the medication for a long enough time may result in your surgery being rescheduled. Blood Thinning Medications: - Stop NSAIDS (Ibuprofen, Advil, Aleve, Motrin, Celebrex, Mobic, etc.) 7 days before surgery, as directed by your surgeon. - Stop Aspirin 7 days before surgery, as directed by your surgeon. - Stop ALL herbal and dietary supplements 7 days before surgery. - You may take Tylenol (Acetaminophen) or any of your pain medications that do not contain aspirin or NSAIDS as needed. Important Reminders: - Candy, mints, and tobacco products are NOT permitted the morning of surgery. - Hearing aids, dentures and glasses may be worn the morning of surgery. - NO jewelry, body piercings, makeup, hairpins or contacts are to be worn the day of surgery. If you develop symptoms such as a fever, cold, or flu, or have other changes to your health within TWO DAYS of scheduled surgery or the morning of surgery, please contact the surgery center above. Personal Belongings: -Please have photo ID and insurance cards. -If you do not have a copy of advance directives on file with us, please bring a copy with you on the day of surgery. - Leave ALL valuables and money at home or with family members. - Please bring high-quality footwear, such as sneakers, to the hospital for ambulating post-surgery. For Outpatient Procedures: - YOU MUST HAVE A RESPONSIBLE CREDIT REVIEW ANALYST TAKE YOU HOME. A MOTOR COACH OPERATOR OR DIRECTOR CUSTOMER CANNOT BE MADE A RESPONSIBLE CREDIT REVIEW ANALYST. - We recommend that a responsible person stays with you overnight to take care of you. - You cannot stay in a hotel alone after outpatient surgery. You will not be permitted to have your surgery, if you do not have someone to take care of you. Arrival Time for Surgery: - The Surgery Center or hospital where you are having surgery will call the afternoon before surgery (or Saturday for Saturday surgery) with a scheduled arrival time. - If you have not heard by 4 pm, please contact the surgery center above. Please be aware that emergency situations arise, which may delay or change your surgical time. If this happens, we will notify you as soon as possible and regret any inconvenience. If you already have an Advance Directive, please fax a copy to [phone] or email to for it to be added to your chart. If you do not have an Advance Directive, you can find the appropriate form and more information at [email or web address]. We recommend that you complete the Advance Directive form found on the website and bring it with you the day of your surgery. It can be witnessed and scanned into your chart that day. Emily Chaparro APRN.CNP documented in this encounter [facility] 03-24-2025 Telephone encounter Note I told Dr. Lowery I would do the surgery. [place] while patient was seeing Dr. Lowery, Dr. Lowery reached out to me and I spoke to both Dr and patient via speakerphone. I explained the risks of the surgery, explained I am willing to do the revision but advise conservative measures first. Risks included ptosis, loss of IOP control necessitating more meds or additional surgery both of which were explained to be common. Patient was agreeable to conservative measures but called back today as documented below. [facility] Work Phone: 03-24-2025 Miscellaneous Notes I told Dr. Lowery I would do the surgery. [place]esteday while patient was seeing Dr. Lowery, Dr. Lowery reached out to me and I spoke to both Dr and patient via speakerphone. I explained the risks of the surgery, explained I am willing to do the revision but advise conservative measures first. Risks included ptosis, loss of IOP control necessitating more meds or additional surgery both of which were explained to be common. Patient was agreeable to conservative measures but called back today as documented below. Allie Lynn CCF# [id number] Patient calling w/update BCL Contact not working Leaking fluid still, face is wet and sticky Janet Lowery MD filed at 03/23/2025 3:55 PM Status: Signed Urgent visit for bleb leak OS Sent by [facility] doctor for bleb leak OS X 4 days IOP was 0 yesterday Today 03/23/2025 Brisk leak OS - IOP 7.8 - AC deep - no choroidals - Discussed conservative management vs surgery, discussed R/B/A of each - BCL placed today 03/23/2025 - timolol BID OS, moxifloxacin QID OS - follow up with Dr. Lowery 04/06/25 - will post for bleb revision 04/12 and if still leaking 04/06 will revise 04/12 documented in this encounter [facility] 03-24-2025 Telephone encounter Note Allie Lynn CCF# [id number] Patient calling w/update BCL Contact not working Leaking fluid still, face is wet and sticky Janet Lowery MD filed at 03/23/2025 3:55 PM Status: Signed Urgent visit for bleb leak OS Sent by [facility] doctor for bleb leak OS X 4 days IOP was 0 yesterday Today 03/23/2025 Brisk leak OS - IOP 7.8 - AC deep - no choroidals - Discussed conservative management vs surgery, discussed R/B/A of each - BCL placed today 03/23/2025 - timolol BID OS, moxifloxacin QID OS - follow up with Dr. Lowery 04/06/25 - will post for bleb revision 04/12 and if still leaking 04/06 will revise 04/12 [facility] Work Phone: 03-23-2025 Note Date of Procedure 03/23/2025. Population Health Coach Information Roustabout Pusher: TOO. Notes Bleb leak OS [facility] 03-23-2025 Note Date of Procedure 03/23/2025. Population Health Coach Information Roustabout Pusher: TOO. 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 Notes No choroidals Document baseline disc photos [facility] 03-23-2025 Note Date of Procedure 03/23/2025. Population Health Coach Information Roustabout Pusher: TOO. Quality Right Eye Good. Left Eye Good. NFL Interpretation Right Eye Superior loss, Inferior loss. Left Eye Normal. [facility] 03-23-2025 Note Table formatting fro m the original result was not included. Date of Procedure 03/23/2025. Notes Ophthalmology Exam Pachymetry (03/23/2025, 03/23/25) Right Left Thickness 543, 540 540,530 Edited by: Saranya Buchanan OA ZEISS 03-23-2025 Instructions Shyanne Parmar MD - 03/23/2025 3:07 PM EDT Please take timolol (yellow top) twice a day in the left eye And moxifloxacin (moar top) four times a day in the left eye documented in this encounter [facility] 03-23-2025 Note HNO ID: [id number] Author: JANET LOWERY MD Service: ? Author Type: Physician Type: Progress Notes Filed: 03/23/2025 15:55 Note Text: Urgent visit for bleb leak OS Sent by [facility] doctor for bleb leak OS X 4 days IOP was 0 yesterday Today 03/23/2025 Brisk leak OS - IOP 7.8 - AC deep - no choroidals - Discussed conservative management vs surgery, discussed R/B/A of each - BCL placed today 03/23/2025 - timolol BID OS, moxifloxacin QID OS - follow up with Dr. Lowery 04/06/25 - will post for bleb revision 04/12 and if still leaking 04/06 will revise 04/12 I have confirmed and edited as necessary the relevant HPI, ophthalmic history, ROS, and the neuro exam findings as obtained by others. I have seen and examined Allie Bustos Aamir. I have discussed the case and the management of this patient's care with Dr. Shyanne Parmar PGY-2. I also have reviewed and agree with the assessment and plan as stated above and agree with all of its relevant components. Janet Lowery MD 03/23/2025 [facility] 03-23-2025 History of Presen t illness Narrative Urgent visit for bleb leak OS Sent by [facility] doctor for bleb leak OS X 4 days IOP was 0 yesterday Today 03/23/2025 Brisk leak OS - IOP 7.8 - AC deep - no choroidals - Discussed conservative management vs surgery, discussed R/B/A of each - BCL placed today 03/23/2025 - timolol BID OS, moxifloxacin QID OS - follow up with Dr. Lowery 04/06/25 - will post for bleb revision 04/12 and if still leaking 04/06 will revise 04/12 I have confirmed and edited as necessary the relevant HPI, ophthalmic history, ROS, and the neuro exam findings as obtained by others. I have seen and examined Allie Lynn. I have discussed the case and the management of this patient's care with Dr. Shyanne Parmar PGY-2. I also have reviewed and agree with the assessment and plan as stated above and agree with all of its relevant components. Janet Lowery MD 03/23/2025 documented in this encounter [facility] 03-23-2025 Telephone encounter Note Appointment scheduled with at 12:30. Patient advised to arrive on empty stomach. States she did have a granola bar and took medications around 9 am. *documentation is in secure chat* Barbie Alicea March 23, 2025 10:48 AM [facility] 03-23-2025 Miscellaneous Notes Appointment scheduled with at 12:30. Patient advised to arrive on empty stomach. States she did have a granola bar and took medications around 9 am. *documentation is in secure chat* Barbie Alicea March 23, 2025 10:[address] Ramos: yes I can see her sooner but this needs urgent revision and I'm leaving for [place] tomorrow morning until April 07. Maybe its better to go to [facility] to be cared for Left message for patient to call the office to obtain the above information. Barbie Alicea reaching out to [facility] scheduling to find the availability of a engineering technical specialist to take over patient care with Dr. Ramos going out of the country. Janet Rivero RN March 23, 2025 10:00 AM Spoke with patient. Sent the following message to Dr. Ramos in a Urgent Secure Chat regarding conversation: Received chart notes from [facility] Ankur Curtis MD. Patient has loose Exposed suture with a briskly leaking bleb, carmen positive, intraocular pressure 0 left eye . Patient started on Moxifloxacin four times a day . Advised to see you today for possible treatment. Patient was added to your schedule in the Urgent 4:00 slot. Do you feel this patient should come in sooner. Patient states Dr. Curtis advised she have surgery today? This is not noted in documentation. Please advise Patient is very concerned and upset. States she feels she should be seen earlier than the 4:00 appointment. Janet Rivero RN March 23, 2025 9:54 AM documented in this encounter [facility] 03-23-2025 Telephone encounter Note Response from Dr. Ramos: yes I can see her sooner but this needs urgent revision and I'm leaving for [place] tomorrow morning until April 07. Maybe its better to go to [facility] to be cared for Left message for patient to call the office to obtain the above information. Barbie Alicea reaching out to [facility] scheduling to find the availability of a engineering technical specialist to take over patient care with Dr. Ramos going out of the country. Janet Rivero RN March 23, 2025 10:00 AM [facility] 03-23-2025 Telephone encounter Note Spoke with patient. Sent the following message to Dr. Ramos in a Urgent Secure Chat regarding conversation: Received chart notes from [facility] Ankur Curtis MD. Patient has loose Exposed suture with a briskly leaking bleb, carmen positive, intraocular pressure 0 left eye . Patient started on Moxifloxacin four times a day . Advised to see you today for possible treatment. Patient was added to your schedule in the Urgent 4:00 slot. Do you feel this patient should come in sooner. Patient states Dr. Curtis advised she have surgery today? This is not noted in documentation. Please advise Patient is very concerned and upset. States she feels she should be seen earlier than the 4:00 appointment. Janet Rivero RN March 23, 2025 9:54 AM [facility] 03-16-2025 Note Patient Outreach (IN TMMN) ALLIE LYNN ([id number]) 1970 F [place] Date Time Provider Department 03/16/25 IFEOMA DAVIS During your visit today, we recorded the following information about you: Allergies As of Date: 03/16/2025 Noted Allergy Reaction ULTRAM (TRAMADOL HCL) 03/12/2006 11 - Vomiting DARVOCET A500 (PROPOXYPHENE N-GABRIEL*04/28/2012 1 - Mental Status Change HYDROCODONE BITARTRATE 10/19/2017 9 - Itching NITROFURANTOIN 03/05/2020 14 - Other: See Comments Comments: Loss of conciousness OPIOIDS - MORPHINE ANALOGUES 03/05/2020 9 - Itching PROPOXYPHENE 03/05/2020 14 - Other: See Comments Comments: Hallucinations TRAMADOL 03/05/2020 14 - Other: See Comments Comments: Loss of conciousness VICODIN (HYDROCODONE-ACETAMINOPHE*2011 9 - Itching Date Reviewed: 12/29/2024 Reviewed by: Janet Meza LPN - Fully Assessed Visit Diagnosis:Mixed hyperlipidemia [E78.2] Order(s):LIPID PANEL, FASTING [SQLIPB] Order #: [id number] FUTURE Prescriptions as of 03/19/2025 - meloxicam (MOBIC) 15 mg tablet Take 1 tablet by mouth once daily. - potassium chloride (K-TAB) 10 mEq tablet Take 1 tablet by mouth once daily. - escitalopram oxalate (LEXAPRO) 10 mg tablet Take 1 tablet by mouth once daily. - gabapentin (NEURONTIN) 100 mg capsule Take 1 capsule by mouth daily at bedtime for 181 days. - atorvastatin (LIPITOR) 40 mg tablet Take 1 tablet by mouth once daily. - CPAP/BIPAP/OTHER APAP 5-18 cmH2O DME [facility] [place] - zolpidem (AMBIEN) 5 mg tablet Take 1 tablet by mouth at bedtime as needed (for insomnia.) for up to 90 days. - SAW PALMETTO ORAL Take by mouth once daily. - MAGNESIUM ORAL Take by mouth once daily. - COLLAGEN MISC - docosahexaenoic acid/epa (FISH OIL ORAL) Take by mouth once daily. - amLODIPine (NORVASC) 2.5 mg tablet Take 1 tablet by mouth once daily. - cevimeline (EVOXAC) 30 mg capsule Take 1 capsule by mouth three times a day. - traZODone (DESYREL) 50 mg tablet Take 1 tablet by mouth daily at bedtime. - buPROPion SR (WELLBUTRIN SR) 100 mg 12 hr tablet Take 1 tablet by mouth once daily. - estradiol (VIVELLE-DOT) 0.1 mg/24 hr patch Apply 1 Patch as directed two times a week. TWICE WEEKLY - progesterone micronized (PROMETRIUM) 100 mg capsule Take 1 capsule by mouth daily at bedtime. - fluticasone (FLONASE) 50 mcg/actuation nasal spray Use 2 Sprays in each nostril once daily. Rinse mouth after use. - omeprazole (PRILOSEC) 20 mg capsule Take 1 capsule by mouth once daily. - lisinopril-hydroCHLOROthiazide (ZESTORETIC) 10-12.5 mg per tablet Take 1 tablet by mouth once daily. - cyclobenzaprine (FLEXERIL) 10 mg tablet Take 1 tablet by mouth two times a day as needed. - cyanocobalamin, vitamin B-12, (VITAMIN B-12 ORAL) Take by mouth once daily. - ibuprofen (MOTRIN) 800 mg tablet Take 1 tablet by mouth every 8 hours as needed for pain. Take with food. - mometasone (NASONEX) 50 mcg/actuation nasal spray USE 2 SPRAYS NASALLY ONCE DAILY. RINSE MOUTH AFTER USE. - L.acid/B.animalis,bifidum/FOS (PROBIOTIC COMPLEX ORAL) Take by mouth once daily. - biotin/calcium carbonate (BIOTIN-CALCIUM ORAL) Take by mouth. - vitamin B complex (B COMPLEX-VITAMIN B12 ORAL) Take by mouth once daily. - aspirin, enteric coated (ASPIR-LOW) 81 mg EC tablet Take 1 tablet by mouth once daily. 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] 04/15/2017 Mixed hyperlipidemia [E78.2] 04/15/2017 BPPV (benign paroxysmal positional vertigo) [H8*04/15/2017 Nausea [R11.0] 01/29/2018 Bilateral upper abdominal pain [R10.11, R10.12] 01/29/2018 Secondary glaucoma, indeterminate stage, 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 [facility] 03-10-2025 Evaluation note Diagnosis Onset Date Resolution Degenerative joint disease of left hip acute March 10 2:26pm Greater trochanteric bursitis of left hip acute March 10, 2:26pm Lumbar spondylosis acute March 102024 2:26pm [facility] Work Phone: 1(165) 284-611207-09-2025 Evaluation note* Diagnosis Onset Date Resolution Status Admit Date 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 acute March 10, 2025 2 :26pm Greater trochanteric bursiti s of left hip acute March 10, 2025 2 :26pm Lumbar spondylosis acute March 102024 2:26pm Degenerative scoliosis acute Au 2024 2:23pm Hip arthritis acute April 2:23pm Lumbar radiculopathy acute Augu 2024 2:23pm Spondylolisthesis acute April 16, 2025 2:23pm [place] [facility] [facility] Work Phone: 1(857) 906-917606-30-2025 Telephone encounter Note* Telephone Encounter - YESI VARGHESE - 03/01/2025 7:55 AM EDT Patient scheduled for nurse visit 03/02/25 to receive TDAP vaccine. Please place order at this time. Yesi Varghese LPN [facility]06-30-2025 Miscellaneous Notes* Telephone Encounter - YESI VARGHESE - 03/01/2025 7:55 AM EDT Patient scheduled for nurse visit 03/02/25 to receive TDAP vaccine. Please place order at this time. Yesi Varghese LPN documented in this encounter[facility] Telephone encounter Note * Telephone Encounter - Spring Peñaloza RN - 02/25/2025 1:26 PM EDT Pt called in and was asking if she was up to date on her TDAP vaccine, because she is going to visit her new grand baby. Please place the order for the vaccine as she will be coming in to get this with [place] nurse on 03/03/25. Spring Peñaloza RN [facility]06-26-2025 Miscellaneous Notes* Telephone Encounter - Spring Peñaloza RN - 02/25/2025 1:26 PM EDT Pt called in and was asking if she was up to date on her TDAP vaccine, because she is going to visit her new grand baby. Please place the order for the vaccine as she will be coming in to get this with [place] nurse on 03/03/25. Spring Peñaloza RN documented in this encounter[facility] Telephone encounter Note * Telephone Encounter - Janet Meza LPN - 01/13/2025 10:27 AM EDT Called and updated patient, patient will call back with alternate supplier Janet Meza LPN January 13, 2025 10:28 AM [facility]05-14-2025 Miscellaneous Notes* Telephone Encounter - Janet Meza LPN - 01/13/2025 10:27 AM EDT Called and updated patient, patient will call back with alternate supplier Janet Meza LPN January 13, 2025 10:28 AM * Telephone Encounter - Allie Mcknight LPN - 01/13/2025 9:12 AM EDT Roman from [facility] said they do not carry that item requested. * Telephone Encounter - Janet Meza LPN - 01/13/2025 8:10 AM EDT Faxed order to [facility] per patient request Janet Meza LPN January 13, 2025 8:10 AM * Telephone Encounter - Angelica Arreola RN - 01/12/2025 10:38 AM EDT Patient reports she has lost her blindness cane. States she spoke with her insurance company [employer] and they state for PCP to write a new order and send to DME company. Order pended for provider review. Please fax order to [facility]. Please call patient with an update. Angleica Arreola RN documented in this encounterFire[facility]05-[facility]25 Telephone encounter Note * Telephone Encounter - Allie Mcknight LPN - 01/13/2025 9:12 AM EDT Roman from [facility] calling said they do not carry that item requested. [facility]05-14-2025 Telephone encounter Note* Telephone Encounter - Janet Meza LPN - 01/13/2025 8:10 AM EDT Faxed order to [facility] per patient request Janet Meza LPN January 13, 2025 8:10 AM [facility]05-13-2025 Telephone encounter Note* Telephone Encounter - Angelica Arreola RN - 01/12/2025 10:38 AM EDT Patient reports she has lost her blindness cane. States she spoke with her insurance company [employer] and they state for PCP to write a new order and send to DME company. Order pended for provider review. Please fax order to [facility]. Please call patient with an update. Angelica Arreola RN [facility]05-13-2025 Telephone encounter Note* Telephone Encounter - Shabbir Berkowitz LPN - 01/12/2025 8:32 AM EDT CPAP supply order faxed. Shabbir Berkowitz LPN [facility]05-13-2025 Miscellaneous Notes* Telephone Encounter - Shabbir Berkowitz LPN - 01/12/2025 8:32 AM EDT CPAP supply order faxed. Shabbir Berkowitz LPN documented in this encounterFirelands [facility] Center04-30-2025 Telephone encounter Note * Telephone Encounter - Clint Brennan RN - 12/30/2024 11:50 AM EDT Pt returned call and given message. Pt reports she does remember Letty calling her and giving herthe results of sleep study. Reports [facility] is coming to her house on 01/07/25 between 10:30 & 12:30 to set up her CPAP. Reports they are coming to her house because she is legally blind and doesn't drive. [facility]04-30[facility] Miscellaneous Notes* Telephone Encounter - Clint Brennan RN - 12/30/2024 11:50 AM EDT Pt returned call and given message. Pt reports she does remember Letty calling her and giving herthe results of sleep study. Reports [facility] is coming to her house on 01/07/25 between 10:30 & 12:30 to set up her CPAP. Reports they are coming to her house because she is legally blind and doesn't drive. * Telephone Encounter - Letty Morales LPN - 12/30/2024 11:26 AM EDT TC to pt with no answer, left VM to return call. Please confirm if she is referring to her sleep study. I called patient on December 17 with the results and sent her CPAP orders to [facility] in [place]. They should be reaching out to her to set up machine. Letty Morales LPN * Telephone Encounter - Eve Tracey - 12/30/2024 8:38 AM EDT Patient calling in to let Michelle Chin know her results from her CPAP are now in her chart. She is asking if she had the chance to review them. Please review and advise patient. Eve Tracey December 30, 2024 8:39 AM documented in this encounterFirelands [facility] Center04-30-2025 Telephone encounter Note * Telephone Encounter - Letty Morales LPN - 12/30/2024 11:26 AM EDT TC to pt with no answer, left VM to return call. Please confirm if she is referring to her sleep study. I called patient on December 17 with the results and sent her CPAP orders to [facility] in [place]. They should be reaching out to her to set up machine. Letty Morales LPN [facility]04-30-2025 Telephone encounter Note* Telephone Encounter - Radha Traceyyenne Rudy - 12/30/2024 8:38 AM EDT Patient calling in to let Michelle Chin know her results from her CPAP are now in her chart. She is asking if she had the chance to review them. Please review and advise patient. Eve Tracey December 30, 2024 8:39 AM [facility]04-29-2025 NoteHNO ID: [id number] Author: IFEOMA DAVIS MD Service: ? Author Type: Physician Type: Progress Notes Filed: 12/29/2024 17:06 Note Text: Reason for Visit Follow up depression and sleep apnea HPI Allie is a 54-year-old female with a history of moderate obstructive sleep apnea, presenting for medication refills and management of sleep apnea. Allie reports feeling a lot better but still experiences persistent fatigue and a heavy fog over her mental clarity, attributing these symptoms to her sleep apnea. She recently underwent a sleep study, which revealed 39 apneas and 63 hypopneas over 324 minutes, with an AHI of 18. She is awaiting the delivery and setup of a CPAP machine on January 07, which she hopes will improve her symptoms. She is currently taking multiple medications, including Norvasc, lisinopril, a cholesterol-lowering medication, Wellbutrin, Ambien, trazodone, potassium, progesterone, and meloxicam. She expresses concern that Wellbutrin is no longer effective in managing her anxiety and depression, noting a backslide in her moods. She inquires about the possibility of increasing the dosage. She also mentions taking Ambien and trazodone for sleep but is unsure if she needs both. She is not taking Percocet, which was prescribed by Dr. Brush, and questions the necessity of cyclobenzaprine, which she initially thought was prescribed for leg movements. She also takes multiple supplements, including biotin, fish oil, collagen, saw palmetto, and B12, and is diligent about her skincare routine. Allie reports a recent weight gain, currently weighing 146 lbs, up from 141 lbs. She attributes this to her diet, which includes turkey burgers that she suspects may be high in sodium. She is physically active, walking regularly and noting that her legs are getting super strong again. She also discusses her relationship with a long-term partner, noting that he has recently become more involved in methodist activities and is three months sober. She expresses hope for the future but is uncertain about her living situation, as her landlord may sell the rental property where she currently resides. Social History Tobacco Use Smoking status: Never Smokeless tobacco: Never Vaping Use Vaping status: Never Used Substance Use Topics Alcohol use: No Drug use: No Past medical history, appointments, medications, allergies reviewed. Pertinent Lab/Diagnostic Studies are reviewed and discussed today Current Outpatient Medications: atorvastatin (LIPITOR) 40 mg tablet zolpidem (AMBIEN) 5 mg tablet SAW PALMETTO ORAL MAGNESIUM ORAL COLLAGEN MISC docosahexaenoic acid/epa (FISH OIL ORAL) amLODIPine (NORVASC) 2.5 mg tablet cevimeline (EVOXAC) 30 mg capsule traZODone (DESYREL) 50 mg tablet buPROPion SR (WELLBUTRIN SR) 100 mg 12 hr tablet estradiol (VIVELLE-DOT) 0.1 mg/24 hr patch fluticasone (FLONASE) 50 mcg/actuation nasal spray omeprazole (PRILOSEC) 20 mg capsule lisinopril-hydroCHLOROthiazide (ZESTORETIC) 10-12.5 mg per tablet cyclobenzaprine (FLEXERIL) 10 mg tablet cyanocobalamin, vitamin B-12, (VITAMIN B-12 ORAL) L.acid/B.animalis,bifidum/FOS (PROBIOTIC COMPLEX ORAL) biotin/calcium carbonate (BIOTIN-CALCIUM ORAL) vitamin B complex (B COMPLEX-VITAMIN B12 ORAL) aspirin, enteric coated (ASPIR-LOW) 81 mg EC tablet meloxicam (MOBIC) 15 mg tablet potassium chloride (K-TAB) 10 mEq tablet escitalopram oxalate (LEXAPRO) 10 mg tablet gabapentin (NEURONTIN) 100 mg capsule CPAP/BIPAP/OTHER progesterone micronized (PROMETRIUM) 100 mg capsule ibuprofen (MOTRIN) 800 mg tablet mometasone (NASONEX) 50 mcg/actuation nasal spray Health Maintenance DTaP,Tdap,Td Vaccine(1 - Tdap) Hepatitis B Vaccine( of 3 - 19+ 3-dose series) Shingrix Vaccine(1 of 2) Pneumococcal Vaccine: 50+(1 of 1 - PCV)@ Review Of Systems Constitutional: (+) fatigue, (+) weight gain, (+) sleep disturbance Neurological: (+) memory impairment, (+) restless legs Psychiatric: (+) depressed mood, (+) anxiety, (+) mood changes Physical Exam BP 112/66 Pulse 86 Ht 154.9 cm (5' 1) Wt 66.4 kg (146 lb 6.4 oz) SpO2 97% BMI 27.66 kg/m? GENERAL: NAD, alert and oriented SKIN: unremarkable, no rash or skin lesions. HEAD: normocephalic EYES: PERRLA, EOMI, conjunctiva clear EARS: external ears normal, canals clear, TM's normal. LUNGS: Clear to auscultation bilaterally, no wheezes/rhonchi/rales. HEART: Regular rate and rhythm, no murmurs. No ectopy. EXTREMITIES: Normal, No deformities, No skin discoloration, No edema. NEURO: Awake, alert and oriented x3, cranial nerves II-XII grossly intact, normal gait, no involuntary motions Tests - Polysomnography: - 21 awakenings - 39 apneas during 324 minutes - 63 episodes of reduced respirations - Apnea-Hypopnea Index: 18 (moderate obstructive sleep apnea) - Limb movements observed, not associated with arousals Assessment and Plan 1. Primary hypert (more content not included)...[facility] 12-29-2024 History of Present illness Narrative* Ifeoma Davis MD - 12/29/2024 5:04 PM EDT Reason for Visit Follow up depression and sleep apnea HPI Allie is a 54-year-old female with a history of moderate obstructive sleep apnea, presenting for medication refills and management of sleep apnea. Allie reports feeling a lot better but still experiences persistent fatigue and a heavy fog overher mental clarity, attributing these symptoms to her sleep apnea. She recently underwent a sleep study, which revealed 39 apneas and 63 hypopneas over 324 minutes, with an AHI of 18. She is awaitingthe delivery and setup of a CPAP machine on January 07, which she hopes will improve her symptoms. She is currently taking multiple medications, including Norvasc, lisinopril, a cholesterol-loweringmedication, Wellbutrin, Ambien, trazodone, potassium, progesterone, and meloxicam. She expresses concern that Wellbutrin is no longer effective in managing her anxiety and depression, noting a backslide in her moods. She inquires about the possibility of increasing the dosage. She also mentions taking Ambien and trazodone for sleep but is unsure if she needs both. She is not taking Percocet, which was prescribed by Dr. Brush, and questions the necessity of cyclobenzaprine, which she initially thought was prescribed for leg movements. She also takes multiple supplements, including biotin, fish oil, collagen, saw palmetto, and B12, and is diligent about her skincare routine. Allie reports a recent weight gain, currently weighing 146 lbs, up from 141 lbs. She attributes thisto her diet, which includes turkey burgers that she suspects may be high in sodium. She is physically active, walking regularly and noting that her legs are getting super strong again. She also discusses her relationship with a long-term partner, noting that he has recently become more involved in methodist activities and is three months sober. She expresses hope for the future but isuncertain about her living situation, as her landlord may sell the rental property where she currently resides. Social History Tobacco Use Smoking status: Never Smokeless tobacco: Never Vaping Use Vaping status: Never Used Substance Use Topics Alcohol use: No Drug use: No Past medical history, appointments, medications, allergies reviewed. Pertinent Lab/Diagnostic Studies are reviewed and discussed today Current Outpatient Medications: atorvastatin (LIPITOR) 40 mg tablet zolpidem (AMBIEN) 5 mg tablet SAW PALMETTO ORAL MAGNESIUM ORAL COLLAGEN MISC docosahexaenoic acid/epa (FISH OIL ORAL) amLODIPine (NORVASC) 2.5 mg tablet cevimeline (EVOXAC) 30 mg capsule traZODone (DESYREL) 50 mg tablet buPROPion SR (WELLBUTRIN SR) 100 mg 12 hr tablet estradiol (VIVELLE-DOT) 0.1 mg/24 hr patch fluticasone (FLONASE) 50 mcg/actuation nasal spray omeprazole (PRILOSEC) 20 mg capsule lisinopril-hydroCHLOROthiazide (ZESTORETIC) 10-12.5 mg per tablet cyclobenzaprine (FLEXERIL) 10 mg tablet cyanocobalamin, vitamin B-12, (VITAMIN B-12 ORAL) L.acid/B.animalis,bifidum/FOS (PROBIOTIC COMPLEX ORAL) biotin/calcium carbonate (BIOTIN-CALCIUM ORAL) vitamin B complex (B COMPLEX-VITAMIN B12 ORAL) aspirin, enteric coated (ASPIR-LOW) 81 mg EC tablet meloxicam (MOBIC) 15 mg tablet potassium chloride (K-TAB) 10 mEq tablet escitalopram oxalate (LEXAPRO) 10 mg tablet gabapentin (NEURONTIN) 100 mg capsule CPAP/BIPAP/OTHER progesterone micronized (PROMETRIUM) 100 mg capsule ibuprofen (MOTRIN) 800 mg tablet mometasone (NASONEX) 50 mcg/actuation nasal spray Health Maintenance DTaP,Tdap,Td Vaccine(1 - Tdap) Hepatitis B Vaccine(1 of 3 - 19+ 3-dose series) Shingrix Vaccine(1 of 2) Pneumococcal Vaccine: 50+(1 of 1 - PCV)@ Review Of Systems Constitutional: (+) fatigue, (+) weight gain, (+) sleep disturbance Neurological: (+) memory impairment, (+) restless legs Psychiatric: (+) depressed mood, (+) anxiety, (+) mood changes Physical Exam BP 112/66 Pulse 86 Ht 154.9 cm (5' 1) Wt 66.4 kg (146 lb 6.4 oz) SpO2 97% BMI 27.66 kg/m GENERAL: NAD, alert and oriented SKIN: unremarkable, no rash or skin lesions. HEAD: normocephalic EYES: PERRLA, EOMI, conjunctiva clear EARS: external ears normal, canals clear, TM's normal. LUNGS: Clear to auscultation bilaterally, no wheezes/rhonchi/rales. HEART: Regular rate and rhythm, no murmurs. No ectopy. EXTREMITIES: Normal, No deformities, No skin discoloration, No edema. NEURO: Awake, alert and oriented x3, cranial nerves II-XII grossly intact, normal gait, no involuntary motions Tests - Polysomnography: - 21 awakenings - 39 apneas during 324 minutes - 63 episodes of reduced respirations - Apnea-Hypopnea Index: 18 (moderate obstructive sleep apnea) - Limb movements observed, not associated with arousals Assessment and Plan 1. Primary hypertension (I10) Well-controlled on current regimen of Norvasc and lisinopril. - Continue current medications. 2. Depression, unspecified depression type (F32.A) Anxiety (F41.9) Currently managed with Wellbutrin. Patient reports decreased efficacy of Wellbutrin and experiencing a backslide in mood. Discussed potential side effects of increasing Wellbutrin dosage, includingnervousness and anxiety. - Advised to wait for the effects of CPAP therapy before considering medication adjustments. - Continue current Wellbutrin dosage. 3. Trigger finger, unspecified finger, unspecified laterality (M65.30) 4. Hypokalemia (E87.6) Managed with potassium supplementation. - Continue potassium supplementation. 5. Legally blind (H54.8) 6. Sleep apnea, unspecified type (G47.30) Diagnosed with moderate obstructive sleep apnea. Polysomnography results indicate 39 apneas and 63 hypopneas over 324 minutes, with an AHI of 18. Patient experiences excessive daytime sleepiness and cognitive fog. - CPAP machine delivery and setup scheduled for January 07. - Educated patient on the potential benefits of CPAP therapy in improving sleep quality and reducing daytime symptoms. - Advised discontinuation of Ambien after CPAP initiation; continue trazodone for sleep. Voice recognition software was used to compose this office note. Please excuse any unintended typographical errors. Recording using [employer] software for draft documentation of the visit was discussed with the patient/authorized parts representative; all questions welcomed and answered. Patient/authorized parts representative agreed to proceed Ifeoma Davis MD documented in this encounterFire[facility]04-[facility]-2025 Telephone encounter Note * Telephone Encounter - Sharifa Amaral RN - 12/23/2024 12:45 PM EDT Prescription Refill Information The patient has been identified by name and date of : Yes Caregiver verified no other encounters exist for this prescription request: Yes Caregiver confirmed with patient/requestor that no other refills are due, in the near future, with this provider at this time: Yes The last office visit in the department: 11/19/24 Does the patient have a future office visit with this provider/department: Yes (12/29/24) Requested Prescriptions Pending Prescriptions Disp Refills atorvastatin (LIPITOR) 40 mg tablet 90 tablet 3 Sig: Take 1 tablet by mouth once daily. patient is changing pharmacies from mail order to [facility] so needs a new rx sent Sharifa Amaral RN December 23, 2024 12:45 PM [facility]04-23-2025 Miscellaneous Notes* Telephone Encounter - Sharifa Amaral RN - 12/23/2024 12:45 PM EDT Prescription Refill Information The patient has been identified by name and date of : Yes Caregiver verified no other encounters exist for this prescription request: Yes Caregiver confirmed with patient/requestor that no other refills are due, in the near future, with this provider at this time: Yes The last office visit in the department: 11/19/24 Does the patient have a future office visit with this provider/department: Yes (12/29/24) Requested Prescriptions Pending Prescriptions Disp Refills atorvastatin (LIPITOR) 40 mg tablet 90 tablet 3 Sig: Take 1 tablet by mouth once daily. patient is changing pharmacies from mail order to [facility] so needs a new rx sent Sharifa Amaral RN December 23, 2024 12:45 PM documented in this encounterFirelands [facility] Center04-17-2025 Telephone encounter Note * Telephone Encounter - Letty Morales LPN - 12/17/2024 2:56 PM EDT TC to pt who voiced understanding. Agreeable to [facility] in [place]. 31-90 day follow up made. Letty Morales LPN [facility]04-17-2025 Miscellaneous Notes* Telephone Encounter - Letty Morales LPN - 12/17/2024 2:56 PM EDT TC to pt who voiced understanding. Agreeable to [facility] in [place]. 31-90 day follow up made. Letty Morales LPN * Telephone Encounter - Michelle Chin APRN.CNP - 12/17/2024 1:24 PM EDT Please CALL pt with result of sleep study--it confirms that she has sleep apnea so I will prescribeautoCPAP for her. Will plan to send to [facility] unless she has another DME she wants to use. Michlele Chin APRN.CNP documented in this encounterFirelands [facility] Medical Center04-17-2025 Telephone encounter Note * Telephone Encounter - Michelle Chin APRN.CNP - 12/17/2024 1:24 PM EDT Please CALL pt with result of sleep study--it confirms that she has sleep apnea so I will prescribeautoCPAP for her. Will plan to send to [facility] unless she has another DME she wants to use. Michelle Chin APRN.CNP [facility]04-09-2025 Evaluation note* Diagnosis Onset Date Resolution Status Admit Date Greater trochanteric bursiti s of left hip acute December 09, 2024 1:22pm Rotator cuff tendonitis acute A pril 2024 1:22pm [facility] Work Phone: [phone] Telephone encounter Note* Telephone Encounter - Janet Meza LPN - 12/08/2024 10:05 AM EDT Called and left message for patient, on self identified voicemail Janet Meza LPN December 08, 2024 10:05 AM [facility]04-08-2025 Miscellaneous Notes* Telephone Encounter - Janet Meza LPN - 12/08/2024 10:05 AM EDT Called and left message for patient, on self identified voicemail Janet Meza LPN December 08, 2024 10:05 AM * Telephone Encounter - Ifeoma Davis MD - 12/07/2024 5:36 PM EDT Rx for her. RegardsIfeoma MD * Telephone Encounter - Dara Valdez RN - 12/07/2024 11:07 AM EDT Patient calls and states that she has been having issues with sleeping. Patient is currently on Trazodone for sleep. Patient states that this has not been working for her. Patient states that she is needing a c-pap however sleep waiting for sleep study results to be read.. Patient is asking if provider can prescribe Ambien for her? Patient states that she will stop taking the Trazodone. Patient has a 6 week follow up scheduled with Dr. Davis on 12/29/2024 but states that she needs something to help her sleep sooner. Please review and advise, Dara Valdez, RN documented in this encounterFirelands [facility] Medical Center04-07-2025 Telephone encounter Note * Telephone Encounter - Ifeoma Davis MD - 12/07/2024 5:36 PM EDT Rx for her. Ifeoma Flores MD [facility]04-07-2025 Telephone encounter Note* Telephone Encounter - Jackie Freitas MA - 12/07/2024 11:35 AM EDT This was ordered by sleep provider: Michelle Chin. Results must come from ordering provider. Once sleep provider receives results the sleep office will contact patient. Jackie Freitas MA [facility]04-07-2025 Miscellaneous Notes* Telephone Encounter - Jackie Freitas MA - 12/07/2024 11:35 AM EDT This was ordered by sleep provider: Michelle Chin. Results must come from ordering provider. Once sleep provider receives results the sleep office will contact patient. Jackie Freitas MA * Telephone Encounter - Rupa George - 12/07/2024 10:04 AM EDT Patient calling again for status update on sleep study results. PSS reviewed provider's response in unread [facility] Message. Patient asking to be contacted as soon as results are in. She states she is struggling to sleep. * Telephone Encounter - Draa Valdez RN - 12/01/2024 8:58 AM EDT Patient calls and states that she was at [facility] for Sleep study on 11/17/2024. Patient asking about results for sleep study. Please review and advise, Dara Valdez RN documented in this encounterFirelands [facility] Medical Center04-07-2025 Telephone encounter Note * Telephone Encounter - Dara Valdez RN - 12/07/2024 11:07 AM EDT Patient calls and states that she has been having issues with sleeping. Patient is currently on Trazodone for sleep. Patient states that this has not been working for her. Patient states that she is needing a c-pap however sleep waiting for sleep study results to be read.. Patient is asking if provider can prescribe Ambien for her? Patient states that she will stop taking the Trazodone. Patient has a 6 week follow up scheduled with Dr. Davis on 12/29/2024 but states that she needs something to help her sleep sooner. Please review and advise, Dara Valdez RN [facility]04-07-2025 Telephone encounter Note* Telephone Encounter - Rupa George - 12/07/2024 10:04 AM EDT Patient calling again for status update on sleep study results. PSS reviewed provider's response in unread [facility] Message. Patient asking to be contacted as soon as results are in. She states she is struggling to sleep. [facility]04-01-2025 Telephone encounter Note* Telephone Encounter - Dara Valdez RN - 12/01/2024 8:58 AM EDT Patient calls and states that she was at [facility] for Sleep study on 11/17/2024. Patient asking about results for sleep study. Please review and advise, Dara Valdez RN [facility]03-25-2025 Radiology Diagnostic study note [facility] Imaging Services [address], [place] [address] Hip Min 2 Views (Portable) MR#: [id number] Acct: [id number] Name: ALLIE LYNN Rep #: [id number] : 1970 F 54 From: [place] Weathers DO PCP: Dr. Ifeoma Davis MD Status: REG C WALLY Study:Hip Min 2 Views (Portable) Date of Exam : 11/24/24 Exam# [id number] Ordering Dr: Allie Prakash PROCEDURE: HIP MIN 2 VIEWS (PORTABLE) 11/24/2024 REASON FOR EXAM: LEFT HIP PAIN VERSUS RADICULAR SYMPTOMS TECHNIQUE: 2 views of each hip. COMPARISON: None FINDINGS: Two views of the left hip demonstrate degenerative changes. There are no fractures or dislocations.Arteriosclerotic vascular disease of the vessels in the groin region are noted. Soft tissues are grossly unremarkable RAD/Hip Min 2 Views (Portable) IMPRESSION: Degenerative changes left hip. Arteriosclerotic vascular disease of the vessels of the left groin region. Reading Location: [id number] CC: Allie Prakash; Dr. Ifeoma Davis MD ~ Trade Marker: Signed [facility]03-21-2025 Telephone encounter Note* Telephone Encounter - Spring Peñaloza RN - 11/20/2024 12:46 PM EDT Pt called and is notified of providers results and instructions. Pt voices understanding. Spring Peñaloza RN [facility]03-21-2025 Miscellaneous Notes* Telephone Encounter - Spring Peñaloza RN - 11/20/2024 12:46 PM EDT Pt called and is notified of providers results and instructions. Pt voices understanding. Spring Peñaloza RN * Telephone Encounter - David Anna APRN.CNP - 11/20/2024 12:34 PM EDT Glucose is only slightly low and I am not concerned with that. The potassium is probably from decreased dietary intake and being on lisinopril hydrochlorothiazide for her blood pressure. I would recommend we start a daily potassium supplement an recheck in 1 week after starting the supplement. Take with food to decrease nausea. Thank you David Anna APRN.DEBORAH * Telephone Encounter - Allie Mcknight LPN - 11/20/2024 10:38 AM EDT Patient calling asking about her lab results that she had done yesterday, she can see results on mychart. Glucose was abnormal at 73, she said she was not fasting for the labs. Patient said she doesnot have an appetite, she ate a banana for breakfast yesterday. Concerned saw her Potassium was lowalso. Please advise Latest Ref Rng 11/19/2024 Glucose 74 - 99 mg/dL 73 (L) BUN 7 - 21 mg/dL 12 Creatinine 0.58 - 0.96 mg/dL 0.95 Sodium 136 - 144 mmol/L 140 Potassium 3.7 - 5.1 mmol/L 3.5 (L) Chloride 98 - 107 mmol/L 99 CO2 22 - 30 mmol/L 27 Anion Gap 8 - 15 mmol/L 14 Calcium 8.5 - 10.2 mg/dL 9.7 eGFR >=60 mL/min/1.73m 71 Legend: (L) Low documented in this encounterFirelands [facility] Medical Center03-21-2025 Telephone encounter Note * Telephone Encounter - David Anna APRN.CNP - 11/20/2024 12:34 PM EDT Glucose is only slightly low and I am not concerned with that. The potassium is probably from decreased dietary intake and being on lisinopril hydrochlorothiazide for her blood pressure. I would recommend we start a daily potassium supplement an recheck in 1 week after starting the supplement. Take with food to decrease nausea. Thank you David Anna APRN.CNP [facility]03-21-2025 Telephone encounter Note* Telephone Encounter - Allie Mcknight LPN - 11/20/2024 10:38 AM EDT Patient calling asking about her lab results that she had done yesterday, she can see results on mychart. Glucose was abnormal at 73, she said she was not fasting for the labs. Patient said she doesnot have an appetite, she ate a banana for breakfast yesterday. Concerned saw her Potassium was lowalso. Please advise Latest Ref Rng 11/19/2024 Glucose 74 - 99 mg/dL 73 (L) BUN 7 - 21 mg/dL 12 Creatinine 0.58 - 0.96 mg/dL 0.95 Sodium 136 - 144 mmol/L 140 Potassium 3.7 - 5.1 mmol/L 3.5 (L) Chloride 98 - 107 mmol/L 99 CO2 22 - 30 mmol/L 27 Anion Gap 8 - 15 mmol/L 14 Calcium 8.5 - 10.2 mg/dL 9.7 eGFR >=60 mL/min/1.73m 71 Legend: (L) Low [facility]03-20-2025 NoteHNO ID: [id number] Author: DAVID ANNA APRN.HYDROGENATION STILL OPERATOR Service: ? Author Type: Nurse Practitioner Type: Progress Notes Filed: 11/19/2024 14:20 Note Text: CC: Patient presents with: Recheck: 2 week follow up HPI Allie Lynn is a 54 year old female who presents today for brain fog and some fatigue. Symptoms may have improved some but still trying to work on her sleep study in hopes getting this figured out will improve these symptoms further. 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 Started Wellbutrin 6 weeks ago to help with her motivation fatigue and bit of depression and anxiety after a breakup. She feels this is helping well and she feels good on this. Sleep: Has not been effected with starting this medication and awaiting results of a sleep study Appetite: decreased some Suicidal Thoughts: No suicidal ideation, intent or plan Support: Comes from multiple sources including friends and some family Counseling: Yes, Dry Mouth: taking the cevimeline 3 times a day and tolerating well with great improvement. Has had some short hot flashes about once a week that last about a minute since starting the new medications. HTN: Had amlodipine added at visit 6 weeks ago for consistent elevated blood pressure. Ms. Lynn denies headache, chest pain, palpitations, dyspnea, and peripheral edema. Patient denies any side effects of her medication(s) and is compliant with their regimen. She does not check BP's generally. Allie walking when weather is nice. She watches her diet for sodium, low fat and low cholesterol most of the time. Last 3 Encounter BP Readings: Date: BP: 11/03/2024 114/78 10/31/2024 141/88 10/12/2024 106/63 REVIEW OF SYSTEMS See HPI 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 Macular degeneration disease bilateral Mitral prolapse per Mitral valve disorders(424.0) Mitral valve stenosis and aortic valve stenosis Myalgia and myositis, unspecified PXE (pseudoxanthoma elasticum) Rheumatic fever 1995 Rheumatic heart disease, unspecified Tubular adenoma of colon Unspecified essential hypertension PAST SURGICAL HISTORY Procedure Laterality Date ARTHROSCOPY KNEE DIAGNOSTIC W/WO SYNOVIAL BX SPX 1995 Arthroscopy, knee AVASTIN (BEVACIZUMAB) 1.25MG INTRAVITREAL INJECTION OD (RIGHT EYE) Right x 5 (03/12/17) DELIVERY ONLY 1988, 1991, 1993 , low cervical-x 3 COLONOSCOPY FLX DX W/COLLJ SPEC WHEN PFRMD 06/22/2019 Colonoscopy COLONOSCOPY SCREENING 05/30/[address] MAXILLOFAC/SINUS 06/29/2015 normal EGD W/O BRSH SPEC VARICIES INJ 05/30/2023 Small hiatal hernia, fundic gland polyp, mild chronic gastritis ENDOMETRIAL BX W/WO ENDOCERVIX BX W/O DILAT SPX 02/18/2012 ESOPHAGOGASTRODUODENOSCOPY TRANSORAL DIAGNOSTIC 02/03/2018 EGD INCISION OF EYE, TRABECULECTOMY Right 10/26/2021 LASER SELECTA 2 TRABECULOPLASTY Left 01/08/2020 LASER TRABECULOPLASTY OD (RIGHT EYE) Right 10/26/2021 PAST SURGICAL HISTORY OF Bilateral trigger finger release PAST SURGICAL HISTORY OF Left laser surgery to repair capsular rupture REMV CATARACT EXTRACAP,INSERT LENS Right 06/25/2022 REMV CATARACT EXTRACAP,INSERT LENS Left 11/15/2022 PEIOL OS and bleb revision (bleb reduction) x 11/15/2022- Dr. Cynthia Ramos M.D. S [place] A[place]ATION [address] ALLERGIES Ultram [Tramadol Hcl], Darvocet A500 [Propoxyphene N-Acetaminophen], Hydrocodone Bitartrate, Nitrofurantoin, Opioids - Morphine Analogues, Propoxyphene, Tramadol, and Vicodin [Hydrocodone-Acetaminophen] MEDICATIONS escitalopram oxalate (LEXAPRO) 10 mg tablet Take 1 tablet by mouth once daily. SAW PALMETTO ORAL Take by mouth once daily. MAGNESIUM ORAL Take by mouth once daily. COLLAGEN MISC oxyCODONE-acetaminophen (PERCOCET) 5-325 mg tablet Take by mouth. docosahexaenoic acid/epa (FISH OIL ORAL) Take by mouth once daily. amLODIPine (NORVASC) 2.5 mg tablet Take 1 tablet by mouth once daily. cevimeline (EVOXAC) 30 mg capsule Take 1 capsule by mouth three times a day. traZODone (DESYREL) 50 mg tablet Take 1 tablet by mouth daily at bedtime. (Patient taking differently: Take 100 mg by mouth daily at bedtime.) buPROPion SR (WELLBUTRIN SR) 100 mg 12 hr tablet Take 1 tablet by mouth once daily. estradiol (VIVELLE-DOT) 0.1 mg/24 hr patch Apply 1 Patch as directed two times a week. TWICE WEEKLY progesterone micronized (PROMETRIUM) 100 mg capsule Take 1 capsule by mouth daily at bedtime. (Patient not taking: Reported on 11/03/2024) fluticasone (FLONASE) 50 mcg/actuation nasal spray Use 2 S (more content not included)...[facility]03-20-2025 History of Present illness Narrative* David Anna APRN.HYDROGENATION STILL OPERATOR - 11/19/2024 12:58 PM EDT CC: Patient presents with: Recheck: 2 week follow up HPI Allie Lynn is a 54 year old female who presents today for brain fog and some fatigue. Symptoms may have improved some but still trying to work on her sleep study in hopes getting this figured out will improve these symptoms further. 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 Started Wellbutrin 6 weeks ago to help with her motivation fatigue and bit of depression and anxiety after a breakup. She feels this is helping well and she feels good on this. Sleep: Has not been effected with starting this medication and awaiting results of a sleep study Appetite: decreased some Suicidal Thoughts: No suicidal ideation, intent or plan Support: Comes from multiple sources including friends and some family Counseling: Yes, Dry Mouth: taking the cevimeline 3 times a day and tolerating well with great improvement. Has had some short hot flashes about once a week that last about a minute since starting the new medications. HTN: Had amlodipine added at visit 6 weeks ago for consistent elevated blood pressure. Ms. Lynn denies headache, chest pain, palpitations, dyspnea, and peripheral edema. Patient denies any side effects of her medication(s) and is compliant with their regimen. She does not check BP's generally. Allie walking when weather is nice. She watches her diet for sodium, low fat and low cholesterol most of the time. Last 3 Encounter BP Readings: Date: BP: 11/03/2024 114/78 10/31/2024 141/88 10/12/2024 106/63 REVIEW OF SYSTEMS See HPI 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 Macular degeneration disease bilateral Mitral prolapse per Mitral valve disorders(424.0) Mitral valve stenosis and aortic valve stenosis Myalgia and myositis, unspecified PXE (pseudoxanthoma elasticum) Rheumatic fever 1995 Rheumatic heart disease, unspecified Tubular adenoma of colon Unspecified essential hypertension PAST SURGICAL HISTORY Procedure Laterality Date ARTHROSCOPY KNEE DIAGNOSTIC W/WO SYNOVIAL BX SPX 1995 Arthroscopy, knee AVASTIN (BEVACIZUMAB) 1.25MG INTRAVITREAL INJECTION OD (RIGHT EYE) Right x 5 (03/12/17) DELIVERY ONLY 1988, 1991, 1993 , low cervical-x 3 COLONOSCOPY FLX DX W/COLLJ SPEC WHEN PFRMD 06/22/2019 Colonoscopy COLONOSCOPY SCREENING 05/30/[address] MAXILLOFAC/SINUS 06/29/2015 normal EGD W/O BRSH SPEC VARICIES INJ 05/30/2023 Small hiatal hernia, fundic gland polyp, mild chronic gastritis ENDOMETRIAL BX W/WO ENDOCERVIX BX W/O DILAT SPX 02/18/2012 ESOPHAGOGASTRODUODENOSCOPY TRANSORAL DIAGNOSTIC 02/03/2018 EGD INCISION OF EYE, TRABECULECTOMY Right 10/26/2021 LASER SELECTA 2 TRABECULOPLASTY Left 01/08/2020 LASER TRABECULOPLASTY OD (RIGHT EYE) Right 10/26/2021 PAST SURGICAL HISTORY OF Bilateral trigger finger release PAST SURGICAL HISTORY OF Left laser surgery to repair capsular rupture REMV CATARACT EXTRACAP,INSERT LENS Right 06/25/2022 REMV CATARACT EXTRACAP,INSERT LENS Left 11/15/2022 PEIOL OS and bleb revision (bleb reduction) x 11/15/2022- Dr. Cynthia Ramos M.D. S [place],UTERINE ABLATION [id number] ALLERGIES Ultram [Tramadol Hcl], Darvocet A500 [Propoxyphene N-Acetaminophen], Hydrocodone Bitartrate, Nitrofurantoin, Opioids - Morphine Analogues, Propoxyphene, Tramadol, and Vicodin [Hydrocodone-Acetaminophen] MEDICATIONS escitalopram oxalate (LEXAPRO) 10 mg tablet Take 1 tablet by mouth once daily. SAW PALMETTO ORAL Take by mouth once daily. MAGNESIUM ORAL Take by mouth once daily. COLLAGEN MISC oxyCODONE-acetaminophen (PERCOCET) 5-325 mg tablet Take by mouth. docosahexaenoic acid/epa (FISH OIL ORAL) Take by mouth once daily. amLODIPine (NORVASC) 2.5 mg tablet Take 1 tablet by mouth once daily. cevimeline (EVOXAC) 30 mg capsule Take 1 capsule by mouth three times a day. traZODone (DESYREL) 50 mg tablet Take 1 tablet by mouth daily at bedtime. (Patient taking differently: Take 100 mg by mouth daily at bedtime.) buPROPion SR (WELLBUTRIN SR) 100 mg 12 hr tablet Take 1 tablet by mouth once daily. estradiol (VIVELLE-DOT) 0.1 mg/24 hr patch Apply 1 Patch as directed two times a week. TWICE WEEKLY progesterone micronized (PROMETRIUM) 100 mg capsule Take 1 capsule by mouth daily at bedtime. (Patient not taking: Reported on 11/03/2024) fluticasone (FLONASE) 50 mcg/actuation nasal spray Use 2 Sprays in each nostril once daily. Rinse mouth after use. (Patient not taking: Reported on 11/03/2024) gabapentin (NEURONTIN) 100 mg capsule Take 1 capsule by mouth daily at bedtime for 181 days. atorvastatin (LIPITOR) 40 mg tablet Take 1 tablet by mouth once daily. omeprazole (PRILOSEC) 20 mg capsule Take 1 capsule by mouth once daily. diphenhydrAMINE (BENADRYL) 25 mg capsule Take 1-2 capsules by mouth at bedtime as needed. (Patient not taking: Reported on 11/03/2024) lisinopril-hydroCHLOROthiazide (ZESTORETIC) 10-12.5 mg per tablet Take 1 tablet by mouth once daily. meloxicam (MOBIC) 15 mg tablet Take 1 tablet by mouth once daily. cyclobenzaprine (FLEXERIL) 10 mg tablet Take 1 tablet by mouth two times a day as needed. cyanocobalamin, vitamin B-12, (VITAMIN B-12 ORAL) Take by mouth. dextromethorphan-guaiFENesin (MUCINEX DM) 30-600 mg per tablet Take 1 tablet by mouth two times a day. (Patient not taking: Reported on 11/03/2024) ibuprofen (MOTRIN) 800 mg tablet Take 1 tablet by mouth every 8 hours as needed for pain. Take withfood. mometasone (NASONEX) 50 mcg/actuation nasal spray USE 2 SPRAYS NASALLY ONCE DAILY. RINSE MOUTH AFTER USE. (Patient not taking: Reported on 11/03/2024) L.acid/B.animalis,bifidum/FOS (PROBIOTIC COMPLEX ORAL) Take by mouth. biotin/calcium carbonate (BIOTIN-CALCIUM ORAL) Take by mouth. vitamin B complex (B COMPLEX-VITAMIN B12 ORAL) Take by mouth once daily. aspirin, enteric coated (ASPIR-LOW) 81 mg EC tablet Take 1 tablet by mouth once daily. FAMILY HISTORY Problem Relation Age of Onset Heart Father Age 61 Heart Maternal Grandfather Cancer Paternal Grandmother Breast Cancer Maternal Aunt 55 ovarian cancer Heart Son MS Ovarian cancer Maternal Grandmother Glaucoma No Family History Detached Retina No Family History Macular Degen No Family History Blindness No Family History Amblyopia No Family History Social History Tobacco Use Smoking status: Never Smokeless tobacco: Never Vaping Use Vaping status: Never Used Substance Use Topics Alcohol use: No Drug use: No PHYSICAL EXAM BP (P) 116/78 Pulse (P) 102 Resp (P) 16 Wt (P) 67.6 kg (149 lb) SpO2 (P) 96% BMI (P) 28.15 kg/m General Appearance: well appearing, in no acute distress, alert Pysch: mood and affect broad and appropriate Lungs: Lungs clear to auscultation. No wheezing, rhonchi, rales. Heart: RRR without murmur, gallop, or rubs. No ectopy Health maintenance reviewed with patient: DTaP,Tdap,Td Vaccine(1 - Tdap) Never done Hepatitis B Vaccine(1 of 3 - 19+ 3-dose series) Never done Shingrix Vaccine(1 of 2) Never done Pneumococcal Vaccine: 50+(1 of 1 - PCV) Never done Influenza Vaccine(1) due on 03/01/2025 Covid-19 Vaccine( - season) due on 10/12/2025 Depression Screening due on 10/12/2025 Anxiety Screening due on 10/12/2025 Mammogram Screening due on 10/21/2025 Annual PCP Team Chronic Disease Visit due on 11/19/2025 BP Controlled (<130/80) due on 11/19/2025 Diabetes Screening due on 03/27/2027 Colorectal Cancer Screening due on 05/30/2028 Cervical Cancer Screening due on 12/23/2028 Lipid Screening due on 03/27/2029 Hepatitis C Screening Completed HIV Screening Completed DATA REVIEWED: No new labs ASSESSMENT/PLAN: 1. Hypertension, unspecified type - ICD9: 401.9, ICD10: I10 (primary diagnosis) - Controlled - Continue current medications - Recommend home blood pressure monitoring, to bring results to next visit - Encouraged sodium restriction, DASH or Mediterranean diet - Recommend regular aerobic exercise - BASIC METABOLIC PANEL 2. Dry mouth - ICD9: 527.7, ICD10: R68.2 Improved with treatment but possibly having mild hot flash with med. Only occurring once a week forless then a minute. Patient to call if this increases or worsens 3. Depression, unspecified depression type - ICD9: 311, ICD10: F32.A Improving, continue with treatment and planned counseling - Reviewed concept of neurochemical imbalance wth depression/anxiety, treatment options and benefits of counseling in combination with medication. Also reviewed benefits of sleep hygeine, diet and exercise - Instructed patient to contact office or eebpz-[id number] after-hours promptly should condition worsen or any new symptoms appear. - [facility] and after hours crisis line 4. Anxiety - ICD9: 300.00, ICD10: F41.9 As above - ESCITALOPRAM 10 MG TABLET 5. Other fatigue - ICD9: 780.79, ICD10: R53.83 Improved small amount - hopefully with improved control of DAYSI this will continue to improve 6. DAYSI (obstructive sleep apnea) - ICD9: 327.23, ICD10: G47.33 As above Continue with recommendations by sleep medicine Prescription instructions reviewed with patient as applicable. Potential red flag symptoms discussed with the patient. Reviewed appropriate action plan to take if red flag symptoms occur. Patient agreeable to treatment plan. David Anna APRN.DEBORAH documented [facility] Telephone encounter Note * Telephone Encounter - Janet Meza LPN - 11/05/2024 1:23 PM EST Patient updated via active [employer] Janet Meza LPN November 05, 2024 1:23 PM [facility]03-06-2025 Miscellaneous Notes* Telephone Encounter - Janet Meza LPN - 11/05/2024 1:23 PM EST Patient updated via active [employer] Janet Meza LPN November 05, 2024 1:23 PM * Telephone Encounter - Janet Meza LPN - 11/05/2024 1:22 PM EST ----- Message from Ifeoma Davis MD sent at 11/05/2024 11:42 AM EST ----- Allie, Your labs are all normal including iron, vit b12, vit d, thyroid. Ferritin although it is on the lower side, it still is low, would advice that she take otc iron pills to see if that would help her fatigue. Regards, Ifeoma Davis MD documented in this encounterFire[facility]03-[facility]-2025 Telephone encounter Note * Telephone Encounter - Janet Meza LPN - 11/05/2024 1:22 PM EST ----- Message from Ifeoma Davis MD sent at 11/05/2024 11:42 AM EST ----- Allie, Your labs are all normal including iron, vit b12, vit d, thyroid. Ferritin although it is on the lower side, it still is low, would advice that she take otc iron pills to see if that would help her fatigue. Regards, Ifeoma Davis MD [facility]03-04-2025 Instructions* Patient Instructions* Ifeoma Davis MD - 11/03/2024 2:51 PM EST Try taking the percocet without trazodone to see if that helps sleep with out feeling like a hang over. documented in this encounterFirelands [facility]03-04-2025 NoteHNO ID: [id number] Author: IFEOMA DAVIS MD Service: ? Author Type: Physician Type: Progress Notes Filed: 11/03/2024 17:33 Note Text: CC: Patient presents with: Recheck: 10/31/24 UA done at urgent care, always tired HPI Allie Lynn is a 53 year old female who presents today for 6-month follow-up. 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 Dr. 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 States she has not had a bleed in her eye at a long time, but at the same time she states she wouldn't see it at this point. Slowly progressive loss of peripheral vision. Patient also reports that she has issues with calcified joints/arthritis. She has moved back to [place], so she can use the [employer] for going places, [employer]. She is engaged in a lot of activities, and is giving back to the community as much as she can in every way she can. She has a son in [place], and a brother near by. Her eyes are getting worse, but she does not want to use the cane because it would make her more limited. HPL: Reviewed test results with patient , takes medications regularly , does not report side effects. Conscious to avoid red meats, full fat dairy and its by products. Exercising 3 to 5 times a week. HTN: BP controlled today. Checks BP at home. Compliant with medications. Denies any chest pain, palpitations, SOB, swelling in the feet. Careful with diet to avoid salt, trying to eat more fruits and vegetables, exercises regularly She is extremely active in the community. Takes the [employer] bus to [employer] every Saturday, as well as to her [employer] studies throughout the week. States these activities are very important to her because it helps keep her mentally sharp. In regards to activities that are giving her increased difficulty-she can no longer see shade variations, so has issues taking care of the house and getting dressed and ready daily. Bradly stated that her boyfriend, Rg- could help her with day to day tasks, but he also works so he is not available full-time. Needs include home health aid, usp if applicable - says her boyfriend could help her for a portion of the time (as he does already in the mornings),Patient states that she is able to adequately bathe herself, but feels like someone needs to be present so she doesn't slip getting out of the shower, etc. Needs include assistance with organizing medications for the week, personal/self care (picking out clothes, getting ready for the day). Assistance with cleaning, food preparation, Assistance with paperwork for job and family services-- any and all other resources that could be Had worked with an OT previously through [facility] in [place] previously who assisted with various techniques and resources to help making ADLs easier, but states she hasn't continued to pursue this because it's never covered by insurance Pt reports that she's very much so independent and never wants to maru helpless or feel sorry for herself, but she's afraid that if her condition progresses any further without asking for some form of assistance, she will put herself in harm's way, attempting to perform tasks that she shouldn't be on her own. Pt is also requesting uric acid lab be ordered d/t issues with pain and swelling in hands. Patient reports feeling very tired in the morning when she wakes up, not feeling very rested and also sleepy during the daytime. She does have a headache sometimes in the morning when she wakes up. She has not been sleeping with anyone for the past few years so she is unclear whether she snores or not at nighttime but a few times she has caught herself gasping when she wakes up. 09/29/24: Finally broken up with her BF for 13 years, which was weighing on her. She knew it was coming, wanted to and it was also mutual but now she is feeling so sad, and down, a lot of it is grief about what she has been through and the toxicity. Feels like she has let her family and herself down and she has guilt , shame. She has not been able to sleep, despite having a fixed sleep and wake up times. She does not watch tv at bed time. Is taking trazodone but that has not been helping her much. 10/12/24: she notes not feeling well today, Her mouth is really dry. She feels hung over with the increased trazodone. Noticed that her memory is getting worse. She still does not feel over her ex. Sad and a little despondent. Notes the Wellbutrin is beginning to work on her. She is not sleeping well though, and is anxious November 03, 2024 Last visit we started her on lexapro, she notes feeling better on anxiety. The trazodone at 100 mgs is a (more content not included)...[facility]03-04-2025 History of Present illness Narrative* Ifeoma Davis MD - 11/03/2024 2:24 PM EST CC: Patient presents with: Recheck: 10/31/24 UA done at urgent care, always tired HPI Allie Lynn is a 53 year old female who presents today for 6-month follow-up. 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 Dr. 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 States she has not had a bleed in her eye at a long time, but at the same time she states she wouldn't see it at this point. Slowly progressive loss of peripheral vision. Patient also reports that she has issueswith calcified joints/arthritis. She has moved back to [place], so she can use the [employer] for going places, [employer]. She is engaged in a lot of activities, and is giving back to the community as much as she can in every way she can. She has a son in [place], and a brother near by. Her eyes are getting worse, but she doesnot want to use the cane because it would make her more limited. HPL: Reviewed test results with patient , takes medications regularly , does not report side effects. Conscious to avoid red meats, full fat dairy and its by products. Exercising 3 to 5 times a week. HTN: BP controlled today. Checks BP at home. Compliant with medications. Denies any chest pain, palpitations, SOB, swelling in the feet. Careful with diet to avoid salt, trying to eat more fruits andvegetables, exercises regularly She is extremely active in the community. Takes the [employer] bus to [employer] every Saturday, as well as to her [employer] studies throughout the week. States these activities are very important to her because it helps keep her mentally sharp. In regards to activities that are giving her increased difficulty-she can no longer see shade variations, so has issues taking care of the house and getting dressed and ready daily. Bradly stated that her boyfriend, gR- could help her with day to day tasks, but he also works so he is not available full-time. Needs include home health aid, usp if applicable - says her boyfriend could help her for a portion of the time (as he does already in the mornings),Patient states that she is able to adequately bathe herself, but feels like someone needs to be present so she doesn't slip getting out of the shower, etc. Needs include assistance with organizing medications for the week, personal/self care (picking out clothes, getting ready for the day). Assistance with cleaning, food preparation, Assistance with paperwork for job and family services-- any and all other resources that could be Had worked with an OT previously through [facility] in [place] previously who assisted with various techniques and resources to help making ADLs easier, but states she hasn't continued to pursue this because it's never covered by insurance Pt reports that she's very much so independent and never wants to maru helpless or feel sorry for herself, but she's afraid that if her condition progresses any further without asking for some form ofassistance, she will put herself in harm's way, attempting to perform tasks that she shouldn't be on her own. Pt is also requesting uric acid lab be ordered d/t issues with pain and swelling in hands. Patient reports feeling very tired in the morning when she wakes up, not feeling very rested and also sleepy during the daytime. She does have a headache sometimes in the morning when she wakes up. She has not been sleeping with anyone for the past few years so she is unclear whether she snores or not at nighttime but a few times she has caught herself gasping when she wakes up. 09/29/24: Finally broken up with her BF for 13 years, which was weighing on her. She knew it was coming, wanted to and it was also mutual but now she is feeling so sad, and down, a lot of it is grief about what she has been through and the toxicity. Feels like she has let her family and herself down and she has guilt , shame. She has not been able to sleep, despite having a fixed sleep and wake up times. She does not watch tv at bed time. Is taking trazodone but that has not been helping her much. 10/12/24: she notes not feeling well today, Her mouth is really dry. She feels hung over with the increased trazodone. Noticed that her memory is getting worse. She still does not feel over her ex. Sad and a little despondent. Notes the Wellbutrin is beginning to work on her. She is not sleeping well though, and is anxious November 03, 2024 Last visit we started her on lexapro, she notes feeling better on anxiety. The trazodone at 100 mgsis a little helpful. Thinks the percocet is making her sleep more. She sleep when taking the percocet but never feels rested when she wakes up, she feels unable to do a lot of things, no energy and not strength, awaiting the new sleep study. We also started on cevemiline, and that has worked very we ll for her. She has been losing inches,eating a lot of broccoli, cottage cheese, and does not get enough sugar. REVIEW OF SYSTEMS See HPI All other systems negative. PMHx, Sharath HX and Social Hx ALLERGIES Ultram [Tramadol Hcl], Darvocet A500 [Propoxyphene N-Acetaminophen], Hydrocodone Bitartrate, Nitrofurantoin, Opioids - Morphine Analogues, Propoxyphene, Tramadol, and Vicodin [Hydrocodone-Acetaminophen] MEDICATIONS SAW PALMETTO ORAL Take by mouth once daily. MAGNESIUM ORAL Take by mouth once daily. COLLAGEN MISC oxyCODONE-acetaminophen (PERCOCET) 5-325 mg tablet Take by mouth. docosahexaenoic acid/epa (FISH OIL ORAL) Take by mouth once daily. cephALEXin (KEFLEX) 500 mg capsule Take 1 capsule by mouth two times a day for 5 days. traZODone (DESYREL) 50 mg tablet Take 1 tablet by mouth daily at bedtime. (Patient taking differently: Take 100 mg by mouth daily at bedtime.) cevimeline (EVOXAC) 30 mg capsule Take 1 capsule by mouth three times a day. amLODIPine (NORVASC) 2.5 mg tablet Take 1 tablet by mouth once daily. buPROPion SR (WELLBUTRIN SR) 100 mg 12 hr tablet Take 1 tablet by mouth once daily. estradiol (VIVELLE-DOT) 0.1 mg/24 hr patch Apply 1 Patch as directed two times a week. TWICE WEEKLY gabapentin (NEURONTIN) 100 mg capsule Take 1 capsule by mouth daily at bedtime for 181 days. atorvastatin (LIPITOR) 40 mg tablet Take 1 tablet by mouth once daily. omeprazole (PRILOSEC) 20 mg capsule Take 1 capsule by mouth once daily. lisinopril-hydroCHLOROthiazide (ZESTORETIC) 10-12.5 mg per tablet Take 1 tablet by mouth once daily. meloxicam (MOBIC) 15 mg tablet Take 1 tablet by mouth once daily. cyclobenzaprine (FLEXERIL) 10 mg tablet Take 1 tablet by mouth two times a day as needed. cyanocobalamin, vitamin B-12, (VITAMIN B-12 ORAL) Take by mouth. ibuprofen (MOTRIN) 800 mg tablet Take 1 tablet by mouth every 8 hours as needed for pain. Take withfood. L.acid/B.animalis,bifidum/FOS (PROBIOTIC COMPLEX ORAL) Take by mouth. biotin/calcium carbonate (BIOTIN-CALCIUM ORAL) Take by mouth. vitamin B complex (B COMPLEX-VITAMIN B12 ORAL) Take by mouth once daily. aspirin, enteric coated (ASPIR-LOW) 81 mg EC tablet Take 1 tablet by mouth once daily. escitalopram oxalate (LEXAPRO) 10 mg tablet Take 1 tablet by mouth once daily. progesterone micronized (PROMETRIUM) 100 mg capsule Take 1 capsule by mouth daily at bedtime. (Patient not taking: Reported on 11/03/2024) fluticasone (FLONASE) 50 mcg/actuation nasal spray Use 2 Sprays in each nostril once daily. Rinse mouth after use. (Patient not taking: Reported on 11/03/2024) diphenhydrAMINE (BENADRYL) 25 mg capsule Take 1-2 capsules by mouth at bedtime as needed. (Patient not taking: Reported on 11/03/2024) dextromethorphan-guaiFENesin (MUCINEX DM) 30-600 mg per tablet Take 1 tablet by mouth two times a day. (Patient not taking: Reported on 11/03/2024) mometasone (NASONEX) 50 mcg/actuation nasal spray USE 2 SPRAYS NASALLY ONCE DAILY. RINSE MOUTH AFTER USE. (Patient not taking: Reported on 11/03/2024) FAMILY HISTORY Problem Relation Age of Onset Heart Father Age 61 Heart Maternal Grandfather Cancer Paternal Grandmother Breast Cancer Maternal Aunt 55 ovarian cancer Heart Son MS Ovarian cancer Maternal Grandmother Glaucoma No Family History Detached Retina No Family History Macular Degen No Family History Blindness No Family History Amblyopia No Family History Social History Tobacco Use Smoking status: Never Smokeless tobacco: Never Vaping Use Vaping status: Never Used Substance Use Topics Alcohol use: No Drug use: No PHYSICAL EXAM BP 114/78 Pulse 98 Ht 154.9 cm (5' 1) Wt 70.2 kg (154 lb 12.8 oz) SpO2 96% BMI 29.25 kg/m General appearance: Well appearing, alert, in no acute distress, well-hydrated, well nourished. Skin: Areas on the neck where she had procedures, there is hyperpigmentation and some coarse nests. Head: Normocephalic, no masses, lesions, tenderness or abnormalities Eyes: Anicteric sclera. Pupils are equally round and reactive to light. Extraocular movements are intact. Ears: External ears normal, canals clear. Lungs: Lungs clear to auscultation. No wheezing, rhonchi, rales Heart: RRR without murmur, gallop, or rubs. No ectopy ASSESSMENT/PLAN: 1. Vitamin D deficiency - ICD9: 268.9, ICD10: E55.9 (primary diagnosis) - VITAMIN D 25 HYDROXY 2. Dry mouth - ICD9: 527.7, ICD10: R68.2 - CEVIMELINE 30 MG CAPSULE 3. Vitamin B12 deficiency - ICD9: 266.2, ICD10: E53.8 - VITAMIN B12 4. Iron deficiency - ICD9: 280.9, ICD10: E61.1 - IRON AND TIBC - FERRITIN 5. Other fatigue - ICD9: 780.79, ICD10: R53.83 - THYROID STIMULATING HORMONE - T4 FREE/FREE THYROXINE - COMPLETE BLOOD COUNT AND DIFFERENTIAL Ifeoma Davis MD documented in this encounterFirelands [facility]03-[facility]-2025 Telephone encounter Note * Telephone Encounter - Laura Lepe MA - 11/02/2024 7:50 AM EST Patient given results and verbalized understanding of instructions given. Laura Lepe MA [facility]03-03-2025 Miscellaneous Notes* Telephone Encounter - Laura Lepe MA - 11/02/2024 7:50 AM EST Patient given results and verbalized understanding of instructions given. Laura Lepe MA * Telephone Encounter - Britta Gunn PA - 11/02/2024 7:10 AM EST Please let patient know urine culture did not reveal clear evidence of UTI. If she is persistent with symptoms, please follow-up with PCP. documented in this encounterFirelands [facility] Medical Center03-03-2025 Telephone encounter Note * Telephone Encounter - Britta Gunn PA - 11/02/2024 7:10 AM EST Please let patient know urine culture did not reveal clear evidence of UTI. If she is persistent with symptoms, please follow-up with PCP. [facility]03-01-2025 Instructions* Patient Instructions* Chantal Pino APRN.CNP - 10/31/2024 1:21 PM EST Keflex for 7 days Tylenol/ibuprofen as needed for discomfort AZO otc Increase hydration Will send urine for culture, if we need to change antibiotic we will call, if you do not hear from us, take all the medication as ordered. -Follow up with PCP or return to clinic if symptoms not improving in 3 days or if you develop any new (or worsening) symptoms such as fever, chills or back pain go to ER. documented in this encounterFirelands Regional Medical Center03-01-2025 NoteHNO ID: [id number] Author: CHANTAL PINO APRN.CNP Service: ? Author Type: Nurse Practitioner Type: Progress Notes Filed: 10/31/2024 13:22 Note Text: Subjective The history is provided by the patient. No manager language was used. HPI Allie Lynn is a 54 year old female who presents today for CC of lower abdominal pressure and frequency for one day. She has use AZO. She denies any fever, chills, or body aches, no vomiting. She denies any unusual vaginal discharge,itching or odor. BP 141/88 Pulse 97 Temp 36.2 ?C (97.1 ?F) Resp 18 Wt 69 kg (152 lb 1.9 oz) SpO2 99% BMI 28.74 kg/m? Social History Tobacco Use Smoking status: Never Smokeless tobacco: Never Vaping Use Vaping status: Never Used Substance Use Topics Alcohol use: No Drug use: No 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 Macular degeneration disease bilateral Mitral prolapse per Mitral valve disorders(424.0) Mitral valve stenosis and aortic valve stenosis Myalgia and myositis, unspecified PXE (pseudoxanthoma elasticum) Rheumatic fever 1995 Rheumatic heart disease, unspecified Tubular adenoma of colon Unspecified essential hypertension I have confirmed and edited as necessary, the [facility] Review of Systems Constitutional: Negative for chills and fever. Gastrointestinal: Positive for abdominal pain (pressure). Genitourinary: Positive for urgency. Negative for dysuria, flank pain, frequency and hematuria. Objective Physical Exam Vitals and nursing note reviewed. Constitutional: Appearance: Normal appearance. Abdominal: General: Bowel sounds are normal. There is no abdominal bruit. Palpations: Abdomen is not rigid. There is no mass or pulsatile mass. Tenderness: There is no abdominal tenderness. There is no guarding or rebound. Negative signs include Walters's sign and McBurney's sign. Neurological: Mental Status: She is alert and oriented to person, place, and time. Psychiatric: Mood and Affect: Affect normal. ASSESSMENT/PLAN: 1. Dysuria - ICD9: 788.1, ICD10: R30.0 (primary diagnosis) acute - UA positive for alexandra esterase, hematuria, proteinuria, and nitrates - Send urine for culture - Begin treatment with keflex for 7 days - Patient education for prevention given - BACTERIAL CULTURE, URINE - BACTERIAL CULTURE, URINE 2. Acute lower UTI - ICD9: 599.0, ICD10: N39.0 Culture sent, only call if need to change antibiotic. Diagnosis and treatment plan were discussed and questions were answered to the patient's satisfaction. Pt acknowledged understanding of concepts and follow up plan. Specific signs and symptoms that would indicate the need for higher level of care were discussed in detail warranting prompt ER evaluation. franko Pino APRN.[facility] History of Present illness Narrative* Chantal Pino APRN.DEBORAH - 10/31/2024 1:12 PM EST Subjective The history is provided by the patient. No manager language was used. HPI Allie Lynn is a 54 year old female who presents today for CC of lower abdominal pressure andfrequency for one day. She has use AZO. She denies any fever, chills, or body aches, no vomiting. She denies any unusual vaginal discharge,itching or odor. BP 141/88 Pulse 97 Temp 36.2 C (97.1 F) Resp 18 Wt 69 kg (152 lb 1.9 oz) SpO2 99% BMI 28.74 kg/m Social History Tobacco Use Smoking status: Never Smokeless tobacco: Never Vaping Use Vaping status: Never Used Substance Use Topics Alcohol use: No Drug use: No 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 Macular degeneration disease bilateral Mitral prolapse per Mitral valve disorders(424.0) Mitral valve stenosis and aortic valve stenosis Myalgia and myositis, unspecified PXE (pseudoxanthoma elasticum) Rheumatic fever 1995 Rheumatic heart disease, unspecified Tubular adenoma of colon Unspecified essential hypertension I have confirmed and edited as necessary, the [facility] Review of Systems Constitutional: Negative for chills and fever. Gastrointestinal: Positive for abdominal pain (pressure). Genitourinary: Positive for urgency. Negative for dysuria, flank pain, frequency and hematuria. Objective Physical Exam Vitals and nursing note reviewed. Constitutional: Appearance: Normal appearance. Abdominal: General: Bowel sounds are normal. There is no abdominal bruit. Palpations: Abdomen is not rigid. There is no mass or pulsatile mass. Tenderness: There is no abdominal tenderness. There is no guarding or rebound. Negative signs include Walters's sign and McBurney's sign. Neurological: Mental Status: She is alert and oriented to person, place, and time. Psychiatric: Mood and Affect: Affect normal. ASSESSMENT/PLAN: 1. Dysuria - ICD9: 788.1, ICD10: R30.0 (primary diagnosis) acute - UA positive for alexandra esterase, hematuria, proteinuria, and nitrates - Send urine for culture - Begin treatment with keflex for 7 days - Patient education for prevention given - BACTERIAL CULTURE, URINE - BACTERIAL CULTURE, URINE 2. Acute lower UTI - ICD9: 599.0, ICD10: N39.0 Culture sent, only call if need to change antibiotic. Diagnosis and treatment plan were discussed and questions were answered to the patient's satisfaction. Pt acknowledged understanding of concepts and follow up plan. Specific signs and symptoms that would indicate the need for higher level of care were discussed indetail warranting prompt ER evaluation. franko Pino APRN.DEBORAH documented in this encounterFirelands [facility] Medical Center02-19-2025 History of Present illness Narrative* Kimberley De Los Santos, Mammo Tech - 10/21/2024 2:20 PM EST Radiology Service Progress Note PATIENT NAME: Allie Lynn DATE OF SERVICE: October 21, 2024 TIME: 2:00 PM PATIENT IDENTITY VERIFICATION COMPLETED USING TWO (2) IDENTIFIERS: Name and Date of confirmedby patient verbally. FALL SCREENING: Has the patient had 2 falls in the last year or 1 fall with injury or currently using an Ambulatory Assistive Device (Walker, Cane, Wheelchair, Crutches, etc.)? No PATIENT GENDER DATA: Assigned female at . status: : No status:NO. PATIENT RELEVANT IMPLANT DATA REVIEWED: Not Applicable PATIENT PRESENTS WITH AN IMPLANTABLE OR ATTACHED LANDSCAPE SUPERVISOR: No RADIOLOGY DEPARTMENT: Mammography PERIPHERAL IV DATA: Not applicable SIGNED BY: Rubin Carlton October 21, 2024 2:00 PM documented in this encounterFirelands Regional Medical Center02-19-2025 NoteHNO ID: [id number] Author: KIMBERLEY DE LOS SANTOS Mammo Tech Service: ? Author Type: Population Health Coach Type: Progress Notes Filed: 10/21/2024 14:00 Note Text: Radiology Service Progress Note PATIENT NAME: Allie Lynn DATE OF SERVICE: October 21, 2024 TIME: 2:00 PM PATIENT IDENTITY VERIFICATION COMPLETED USING TWO (2) IDENTIFIERS: Name and Date of confirmed by patient verbally. FALL SCREENING: Has the patient had 2 falls in the last year or 1 fall with injury or currently using an Ambulatory Assistive Device (Walker, Cane, Wheelchair, Crutches, etc.)? No PATIENT GENDER DATA: Assigned female at . status: : No status: NO. PATIENT RELEVANT IMPLANT DATA REVIEWED: Not Applicable PATIENT PRESENTS WITH AN IMPLANTABLE OR ATTACHED LANDSCAPE SUPERVISOR: No RADIOLOGY DEPARTMENT: Mammography PERIPHERAL IV DATA: Not applicable SIGNED BY: Rubin Carlton October 21, 2024 2:00 [facility]02-14-2025 Telephone encounter Note* Telephone Encounter - Letty Morales LPN - 10/16/2024 2:27 PM EST TC to Dr. Fox office, [facility] did not receive fax. Sent again. Staff will make sure to speak withDr. Fox. Letty Morales LPN [facility]02-14-2025 Miscellaneous Notes* Telephone Encounter - Letty Morales LPN - 10/16/2024 2:27 PM EST TC to Dr. Fox office, [facility] did not receive fax. Sent again. Staff will make sure to speak withDr. Fox. Letty Morales LPN * Telephone Encounter - Letty Morales LPN - 09/28/2024 8:51 AM EST Office note faxed per request. Letty Morales LPN * Telephone Encounter - Michelle Chin APRN.DEBORAH - 09/25/2024 4:36 PM EST Please print my note and I'll write a msg to Dr Betancourt, we can fax him, then we'll let her know. We could use [facility] lab. She can still take flexeril. Michelle Chin APRN.HYDROGENATION STILL OPERATOR * Telephone Encounter - Letty Morales LPN - 09/25/2024 4:26 PM EST TC to pt who had questions about flexeril, she has been taking it every night to see if it helps with the leg spasms. Wonders if she can still take this or if she will need to stop them. Is okay withincreasing the gabapentin, uses [facility] in [place]. Aware we need to talk to Dr. Betancourt. Has upcoming appts with PCP and pain management. Is okay to do a [facility] but is unable to travel out of town very far. Letty Morales LPN * Telephone Encounter - Michelle Chin APRN.DEBORAH - 09/25/2024 3:52 PM EST Please CALL pt and tell her I reviewed her case with Dr Jiménez. 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 If we better control the leg movements then that might make her sleep more refreshing. He recommends we try increasing gabapentin from 100 mg to 300 mg at HS--I will contact Dr Betancourt about that since he prescribes it. --Please recommend she avoid benedryl which can make the leg movements worse. --We can consider another sleep study with her trying to sleep on her back. If she wants to do thatwould she consider going to a [facility] lab? Michelle Chin APRN.HYDROGENATION STILL OPERATOR documented in this encounterFirelands Regional Medical Center02-11-2025 NoteHNO ID: [id number] Author: CYNTHIA RAMOS MD Service: ? Author Type: Physician Type: Progress Notes Filed: 10/26/2024 18:35 Note Text: Tmax 28 , 28 03/10/2019 ; Pachy 543 , 540 Family history Gonioscopy 03/10/2019 PTM OU with 2+ TMP Lasers and surgeries OD multiple injections; SLT 180 (inferior) 01/15/2020 (IOP 28--> 21); SLT superior 180 05/09/2021 (IOP 26-->19); TBX 10/26/2021 (IOP 24); 06/25/2022 PEIOL/suture of iridectomy (Dr. Eugene) OS multiple injections; SLT 180 (inferior angle) 01/08/2020 (IOP 28-->21); SLT superior 180 05/09/2021 (IOP 23-->22); TBX OS 09/14/2021 (IOP 29); PEIOL/bleb reduction 11/15/2022 Ocular Medication Intol, Non-efficacy, barriers cosopt - not effective Timolol - not effective cosopt ? Effectiveness rhopressa ineffective Acetazolamide/nepataze - SOB, fatigue, weight loss, memory issues Generic brimonidine 0.2% and alphagan-P - dermatitis and body rash (no symptoms with alphagan-P) ALHAJI allergy Dorzolamide-timolol dermatitis body rash Currently using none Testing -- HVF 08/20/2023 dense central scotoma, temporal sparing -- OCT 03/10/2019 OD mod sup>mild inf thinning, temp artifact; OS mild sup/inf thinning -- GCA 03/10/2019 thinning OU/retinal atrophy -- OCT macula 08/20/2023 OD diffuse macular atrophy; OS diffuse macular atrophy, possibly worse, concern for subretinal fluid -- OCT macula 02/18/2024 OD atrophy; OS scar/atrophy, full thickness hole -- OCT 10/13/2024 OD atrophy, no fluid; OS atrophy, nasal fluid stable, not in fovea (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 Eugene (for dysphotopsia) Plan: Lubrication as needed The potential for vision-threatening infection related to the bleb was discussed. The signs of infection and the importance of same-day medical attention if these signs develop were emphasized. 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 Bright feels this is stable since at least 2021; no further intervention to offer at this time (Z96.1) Pseudophakia of both eyes Comment: Clear, as above Plan: As above Has been working with [facility] for - progressive pseudoxanthoma elasticum macular atrophy (currently undergoing white cane training, occupational therapy) SP 6 months refraction HVF 24-2 large size V I have confirmed and edited as necessary the relevant ophthalmic history, ROS, and the neuro exam findings as obtained by others. I have seen and examined this patient. I have discussed the case and the management of this patient's care with the Resident/Fellow/Nuclear Physicist, if applicable. I also have reviewed and agree with the assessment and plan as stated above and agree with all of its relevant components. Cynthia Ramos MD October 13, 2024 11:05 [facility] 10-13-2024 History of Present illness Narrative* Cynthia Ramos MD - 10/13/2024 11:05 AM EST Tmax 28 , 28 03/10/2019 ; Pachy 543 , 540 Family history Gonioscopy 03/10/2019 PTM OU with 2+ TMP Lasers and surgeries OD multiple injections; SLT 180 (inferior) 01/15/2020 (IOP 28--> 21); SLT superior 180 05/09/2021 (IOP 26-->19); TBX 10/26/2021 (IOP 24); 06/25/2022 PEIOL/suture of iridectomy (Dr. Eugene) OS multiple injections; SLT 180 (inferior angle) 01/08/2020 (IOP 28-->21); SLT superior 180 05/09/2021 (IOP 23-->22); TBX OS 09/14/2021 (IOP 29); PEIOL/bleb reduction 11/15/2022 Ocular Medication Intol, Non-efficacy, barriers cosopt - not effective Timolol - not effective cosopt ? Effectiveness rhopressa ineffective Acetazolamide/nepataze - SOB, fatigue, weight loss, memory issues Generic brimonidine 0.2% and alphagan-P - dermatitis and body rash (no symptoms with alphagan-P) ALHAJI allergy Dorzolamide-timolol dermatitis body rash Currently using none Testing -- HVF 08/20/2023 dense central scotoma, temporal sparing -- OCT 03/10/2019 OD mod sup>mild inf thinning, temp artifact; OS mild sup/inf thinning -- GCA 03/10/2019 thinning OU/retinal atrophy -- OCT macula 08/20/2023 OD diffuse macular atrophy; OS diffuse macular atrophy, possibly worse, concern for subretinal fluid -- OCT macula 02/18/2024 OD atrophy; OS scar/atrophy, full thickness hole -- OCT 10/13/2024 OD atrophy, no fluid; OS atrophy, nasal fluid stable, not in fovea (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 Eugene (for dysphotopsia) Plan: Lubrication as needed The potential for vision-threatening infection related to the bleb was discussed. The signs of infection and the importance of same-day medical attention if these signs develop were emphasized. 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 Bright feels this is stable since at least 2021; no further intervention to offer at this time (Z96.1) Pseudophakia of both eyes Comment: Clear, as above Plan: As above Has been working with [facility] for - progressive pseudoxanthoma elasticum macular atrophy (currently undergoing white cane training, occupational therapy) SP 6 months refraction HVF 24-2 large size V I have confirmed and edited as necessary the relevant ophthalmic history, ROS, and the neuro exam findings as obtained by others. I have seen and examined this patient. I have discussed the case and the management of this patient's care with the Resident/Fellow/Nuclear Physicist, if applicable. I also have reviewed and agree with the assessment and plan as stated above and agree with all of its relevant components. Cynthia Ramos MD October 13, 2024 11:05 AM documented in this encounterFirelands Regional Medical Center02-11-2025 NoteDate of Procedure 10/13/2024. Population Health Coach Information Roustabout Pusher: lino. Start time: 9:55 AM. Stop time: 9:55 AM. Notes -- OCT 10/13/2024 OD atrophy, no fluid; OS atrophy, nasal fluid stable, not in [id number] Telephone encounter Note* Telephone Encounter - Jackie Freitas MA - 10/12/2024 3:27 PM EST Patient at PCP appointment. Will have patient stop at discharge to schedule PSG. Jackie Freitas MA [facility]02-10-2025 Miscellaneous Notes* Telephone Encounter - Jackie Freitas MA - 10/12/2024 3:27 PM EST Patient at PCP appointment. Will have patient stop at discharge to schedule PSG. Jackie Freitas MA * Telephone Encounter - Michelle Chin APRN.CNP - 10/08/2024 12:55 PM EST PSG ordered. Please assist pt in scheduling it at [facility]. Michelle Chin APRN.DEBORAH * Telephone Encounter - Dara Valdez RN - 10/07/2024 10:57 AM EST Patient calls and states that she had talked with provider about having another sleep study done doto issues with previous sleep study. Patient calling and asking about where she should get next onedone? Patient would also like to get this scheduled. Please review and advise, Dara Valdez RN documented in this encounterFirelands Regional Medical Center02-10-2025 NoteHNO ID: [id number] Author: IFEOMA DAVIS MD Service: ? Author Type: Physician Type: Progress Notes Filed: 10/12/2024 17:49 Note Text: CC: Patient presents with: Follow Up For: Memory impairment HPI Allie Lynn is a 53 year old female who presents today for 6-month follow-up. 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 Dr. 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 States she has not had a bleed in her eye at a long time, but at the same time she states she wouldn't see it at this point. Slowly progressive loss of peripheral vision. Patient also reports that she has issues with calcified joints/arthritis. She has moved back to [place], so she can use the [employer] for going places, [employer]. She is engaged in a lot of activities, and is giving back to the community as much as she can in every way she can. She has a son in [place], and a brother near by. Her eyes are getting worse, but she does not want to use the cane because it would make her more limited. HPL: Reviewed test results with patient , takes medications regularly , does not report side effects. Conscious to avoid red meats, full fat dairy and its by products. Exercising 3 to 5 times a week. HTN: BP controlled today. Checks BP at home. Compliant with medications. Denies any chest pain, palpitations, SOB, swelling in the feet. Careful with diet to avoid salt, trying to eat more fruits and vegetables, exercises regularly She is extremely active in the community. Takes the [employer] bus to [place] [employer] [place], as well as to her Bible studies throughout the week. States these activities are very important to her because it helps keep her mentally sharp. In regards to activities that are giving her increased difficulty-she can no longer see shade variations, so has issues taking care of the house and getting dressed and ready daily. Bradly stated that her boyfriend, Rg- could help her with day to day tasks, but he also works so he is not available full-time. Needs include home health aid, usp if applicable - says her boyfriend could help her for a portion of the time (as he does already in the mornings),Patient states that she is able to adequately bathe herself, but feels like someone needs to be present so she doesn't slip getting out of the shower, etc. Needs include assistance with organizing medications for the week, personal/self care (picking out clothes, getting ready for the day). Assistance with cleaning, food preparation, Assistance with paperwork for job and family services-- any and all other resources that could be Had worked with an OT previously through [facility] in [place] previously who assisted with various techniques and resources to help making ADLs easier, but states she hasn't continued to pursue this because it's never covered by insurance Pt reports that she's very much so independent and never wants to maru helpless or feel sorry for herself, but she's afraid that if her condition progresses any further without asking for some form of assistance, she will put herself in harm's way, attempting to perform tasks that she shouldn't be on her own. Pt is also requesting uric acid lab be ordered d/t issues with pain and swelling in hands. Patient reports feeling very tired in the morning when she wakes up, not feeling very rested and also sleepy during the daytime. She does have a headache sometimes in the morning when she wakes up. She has not been sleeping with anyone for the past few years so she is unclear whether she snores or not at nighttime but a few times she has caught herself gasping when she wakes up. 09/29/24: Finally broken up with her BF for 13 years, which was weighing on her. She knew it was coming, wanted to and it was also mutual but now she is feeling so sad, and down, a lot of it is grief about what she has been through and the toxicity. Feels like she has let her family and herself down and she has guilt , shame. She has not been able to sleep, despite having a fixed sleep and wake up times. She does not watch tv at bed time. Is taking trazodone but that has not been helping her much. 10/12/24: she notes not feeling well today, Her mouth is really dry. She feels hung over with the increased trazodone. Noticed that her memory is getting worse. She still does not feel over her ex. Sad and a little despondent. Notes the Wellbutrin is beginning to work on her. She is not sleeping well though, and is anxious REVIEW OF SYSTEMS See HPI All other systems negative. PMHx, Sharath HX and Social Hx ALLERGIES Ultram [Tramadol Hcl], Darvocet A500 [Propox (more content not included)...[facility]02-10-2025 History of Present illness Narrative* Ifeoma Davis MD - 10/12/2024 3:09 PM EST CC: Patient presents with: Follow Up For: Memory impairment HPI Allie Lynn is a 53 year old female who presents today for 6-month follow-up. 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 Dr. 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 States she has not had a bleed in her eye at a long time, but at the same time she states she wouldn't see it at this point. Slowly progressive loss of peripheral vision. Patient also reports that she has issueswith calcified joints/arthritis. She has moved back to [place], so she can use the [employer] for going places, [employer]. She is engaged in a lot of activities, and is giving back to the community as much as she can in every way she can. She has a son in [place], and a brother near by. Her eyes are getting worse, but she doesnot want to use the cane because it would make her more limited. HPL: Reviewed test results with patient , takes medications regularly , does not report side effects. Conscious to avoid red meats, full fat dairy and its by products. Exercising 3 to 5 times a week. HTN: BP controlled today. Checks BP at home. Compliant with medications. Denies any chest pain, palpitations, SOB, swelling in the feet. Careful with diet to avoid salt, trying to eat more fruits andvegetables, exercises regularly She is extremely active in the community. Takes the [employer] bus to [place] [employer] every Saturday, as well as to her Bible studies throughout the week. States these activities are very important to her because it helps keep her mentally sharp. In regards to activities that are giving her increased difficulty-she can no longer see shade variations, so has issues taking care of the house and getting dressed and ready daily. Bradly stated that her boyfriend, Rg- could help her with day to day tasks, but he also works so he is not available full-time. Needs include home health aid, usp if applicable - says her boyfriend could help her for a portion of the time (as he does already in the mornings),Patient states that she is able to adequately bathe herself, but feels like someone needs to be present so she doesn't slip getting out of the shower, etc. Needs include assistance with organizing medications for the week, personal/self care (picking out clothes, getting ready for the day). Assistance with cleaning, food preparation, Assistance with paperwork for job and family services-- any and all other resources that could be Had worked with an OT previously through [facility] in [place] previously who assisted with various techniques and resources to help making ADLs easier, but states she hasn't continued to pursue this because it's never covered by insurance Pt reports that she's very much so independent and never wants to maru helpless or feel sorry for herself, but she's afraid that if her condition progresses any further without asking for some form ofassistance, she will put herself in harm's way, attempting to perform tasks that she shouldn't be on her own. Pt is also requesting uric acid lab be ordered d/t issues with pain and swelling in hands. Patient reports feeling very tired in the morning when she wakes up, not feeling very rested and also sleepy during the daytime. She does have a headache sometimes in the morning when she wakes up. She has not been sleeping with anyone for the past few years so she is unclear whether she snores or not at nighttime but a few times she has caught herself gasping when she wakes up. 09/29/24: Finally broken up with her BF for 13 years, which was weighing on her. She knew it was coming, wanted to and it was also mutual but now she is feeling so sad, and down, a lot of it is grief about what she has been through and the toxicity. Feels like she has let her family and herself down and she has guilt , shame. She has not been able to sleep, despite having a fixed sleep and wake up times. She does not watch tv at bed time. Is taking trazodone but that has not been helping her much. 10/12/24: she notes not feeling well today, Her mouth is really dry. She feels hung over with the increased trazodone. Noticed that her memory is getting worse. She still does not feel over her ex. Sad and a little despondent. Notes the Wellbutrin is beginning to work on her. She is not sleeping well though, and is anxious REVIEW OF SYSTEMS See HPI All other systems negative. PMHx, Sharath HX and Social Hx ALLERGIES Ultram [Tramadol Hcl], Darvocet A500 [Propoxyphene N-Acetaminophen], Hydrocodone Bitartrate, Nitrofurantoin, Opioids - Morphine Analogues, Propoxyphene, Tramadol, and Vicodin [Hydrocodone-Acetaminophen] MEDICATIONS amLODIPine (NORVASC) 2.5 mg tablet Take 1 tablet by mouth once daily. buPROPion SR (WELLBUTRIN SR) 100 mg 12 hr tablet Take 1 tablet by mouth once daily. traZODone (DESYREL) 100 mg tablet Take 1 tablet by mouth daily at bedtime. estradiol (VIVELLE-DOT) 0.1 mg/24 hr patch Apply 1 Patch as directed two times a week. TWICE WEEKLY progesterone micronized (PROMETRIUM) 100 mg capsule Take 1 capsule by mouth daily at bedtime. fluticasone (FLONASE) 50 mcg/actuation nasal spray Use 2 Sprays in each nostril once daily. Rinse mouth after use. gabapentin (NEURONTIN) 100 mg capsule Take 1 capsule by mouth daily at bedtime for 181 days. atorvastatin (LIPITOR) 40 mg tablet Take 1 tablet by mouth once daily. omeprazole (PRILOSEC) 20 mg capsule Take 1 capsule by mouth once daily. diphenhydrAMINE (BENADRYL) 25 mg capsule Take 1-2 capsules by mouth at bedtime as needed. lisinopril-hydroCHLOROthiazide (ZESTORETIC) 10-12.5 mg per tablet Take 1 tablet by mouth once daily. meloxicam (MOBIC) 15 mg tablet Take 1 tablet by mouth once daily. cyclobenzaprine (FLEXERIL) 10 mg tablet Take 1 tablet by mouth two times a day as needed. cyanocobalamin, vitamin B-12, (VITAMIN B-12 ORAL) Take by mouth. dextromethorphan-guaiFENesin (MUCINEX DM) 30-600 mg per tablet Take 1 tablet by mouth two times a day. ibuprofen (MOTRIN) 800 mg tablet Take 1 tablet by mouth every 8 hours as needed for pain. Take withfood. mometasone (NASONEX) 50 mcg/actuation nasal spray USE 2 SPRAYS NASALLY ONCE DAILY. RINSE MOUTH AFTER USE. L.acid/B.animalis,bifidum/FOS (PROBIOTIC COMPLEX ORAL) Take by mouth. biotin/calcium carbonate (BIOTIN-CALCIUM ORAL) Take by mouth. vitamin B complex (B COMPLEX-VITAMIN B12 ORAL) Take by mouth. aspirin, enteric coated (ASPIR-LOW) 81 mg EC tablet Take 1 tablet by mouth once daily. FAMILY HISTORY Problem Relation Age of Onset Heart Father Age 61 Heart Maternal Grandfather Cancer Paternal Grandmother Breast Cancer Maternal Aunt 55 ovarian cancer Heart Son MS Ovarian cancer Maternal Grandmother Glaucoma No Family History Detached Retina No Family History Macular Degen No Family History Blindness No Family History Amblyopia No Family History Social History Tobacco Use Smoking status: Never Smokeless tobacco: Never Vaping Use Vaping status: Never Used Substance Use Topics Alcohol use: No Drug use: No PHYSICAL EXAM BP 106/63 Pulse 118 Temp 36.1 C (96.9 F) (Temporal) Resp 16 Wt 71.5 kg (157 lb 9.6 oz) SpO2 99% BMI 29.78 kg/m General appearance: Well appearing, alert, in no acute distress, well-hydrated, well nourished. Skin: Areas on the neck where she had procedures, there is hyperpigmentation and some coarse nests. Head: Normocephalic, no masses, lesions, tenderness or abnormalities Eyes: Anicteric sclera. Pupils are equally round and reactive to light. Extraocular movements are intact. Ears: External ears normal, canals clear. Lungs: Lungs clear to auscultation. No wheezing, rhonchi, rales Heart: RRR without murmur, gallop, or rubs. No ectopy ASSESSMENT/PLAN: 1. Anxiety - ICD9: 300.00, ICD10: F41.9 (primary diagnosis) Trial of ssri, - ESCITALOPRAM 10 MG TABLET 2. Screening for depression - ICD9: V79.0, ICD10: Z13.31 - DEPRESSION SCREENING 3. Encounter for screening examination for other mental health and behavioral disorders - ICD9: V79.8, ICD10: Z13.39 - ANXIETY SCREENING 4. Dry mouth - ICD9: 527.7, ICD10: R68.2 Likely medication induced - CEVIMELINE 30 MG CAPSULE 5. Insomnia, unspecified type - ICD9: 780.52, ICD10: G47.00 - TRAZODONE 50 MG TABLET 6. Current moderate episode of major depressive disorder without prior episode (HCC) - ICD9: 296.22, ICD10: F32.1 Cont the wellbutrin Ifeoma Davis MD [facility] encounter Note * Telephone Encounter - Michelle Chin APRN.CNP - 10/08/2024 12:55 PM EST PSG ordered. Please assist pt in scheduling it at [facility]. Michelle Chin APRN.CNP [facility]02-05-2025 NoteHNO ID: [id number] Author: CALLI DUVALL APRN.CNP Service: ? Author Type: Nurse Practitioner Type: Progress Notes Filed: 10/07/2024 19:02 Note Text: CC: Patient presents with: Memory Loss: Body aches, dry mouth HPI Allie Lynn is a 54 year old female who presents today for above. Patient has multiple concerns today including memory impairment, weakness, tremors, fatigue, and dry mouth. Most of these symptoms were discussed in great length with her PCP on 09/29. She was started on Wellbutrin for depression and Trazodone was increased for sleep issues. Dry mouth started after this but other symptoms have been chronic. She feels they may be slightly worse since 09/29, especially the memory impairment. She describes this as been forgetful and difficulty focusing. Denies acute confusion or disorientation. The only other change since visit with PCP is she broke up with her boyfriend of many years. Wondering about possible short term inpatient mental health treatment in future, does not feel she needs it at this time. Denies SI or HI, states I would never hurt myself. Also interested in home health aide which was also discussed with her PCP. Review of Systems See HPI 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 Macular degeneration disease bilateral Mitral prolapse per Mitral valve disorders(424.0) Mitral valve stenosis and aortic valve stenosis Myalgia and myositis, unspecified PXE (pseudoxanthoma elasticum) Rheumatic fever 1995 Rheumatic heart disease, unspecified Tubular adenoma of colon Unspecified essential hypertension PAST SURGICAL HISTORY Procedure Laterality Date ARTHROSCOPY KNEE DIAGNOSTIC W/WO SYNOVIAL BX SPX 1995 Arthroscopy, knee AVASTIN (BEVACIZUMAB) 1.25MG INTRAVITREAL INJECTION OD (RIGHT EYE) Right x 5 (03/12/17) DELIVERY ONLY 1988, 1991, 1993 , low cervical-x 3 COLONOSCOPY FLX DX W/COLLJ SPEC WHEN PFRMD 06/22/2019 Colonoscopy COLONOSCOPY SCREENING 05/30/[address] MAXILLOFAC/SINUS 06/29/2015 normal EGD W/O BRSH SPEC VARICIES INJ 05/30/2023 Small hiatal hernia, fundic gland polyp, mild chronic gastritis ENDOMETRIAL BX W/WO ENDOCERVIX BX W/O DILAT SPX 02/18/2012 ESOPHAGOGASTRODUODENOSCOPY TRANSORAL DIAGNOSTIC 02/03/2018 EGD INCISION OF EYE, TRABECULECTOMY Right 10/26/2021 LASER SELECTA 2 TRABECULOPLASTY Left 01/08/2020 LASER TRABECULOPLASTY OD (RIGHT EYE) Right 10/26/2021 PAST SURGICAL HISTORY OF Bilateral trigger finger release PAST SURGICAL HISTORY OF Left laser surgery to repair capsular rupture REMV CATARACT EXTRACAP,INSERT LENS Right 06/25/2022 REMV CATARACT EXTRACAP,INSERT LENS Left 11/15/2022 PEIOL OS and bleb revision (bleb reduction) x 11/15/2022- Dr. Cynthia Ramos M.D. S [place]ALL[place] [id number] ALLERGIES Ultram [Tramadol Hcl], Darvocet A500 [Propoxyphene N-Acetaminophen], Hydrocodone Bitartrate, Nitrofurantoin, Opioids - Morphine Analogues, Propoxyphene, Tramadol, and Vicodin [Hydrocodone-Acetaminophen] MEDICATIONS amLODIPine (NORVASC) 2.5 mg tablet Take 1 tablet by mouth once daily. buPROPion SR (WELLBUTRIN SR) 100 mg 12 hr tablet Take 1 tablet by mouth once daily. traZODone (DESYREL) 100 mg tablet Take 1 tablet by mouth daily at bedtime. estradiol (VIVELLE-DOT) 0.1 mg/24 hr patch Apply 1 Patch as directed two times a week. TWICE WEEKLY progesterone micronized (PROMETRIUM) 100 mg capsule Take 1 capsule by mouth daily at bedtime. fluticasone (FLONASE) 50 mcg/actuation nasal spray Use 2 Sprays in each nostril once daily. Rinse mouth after use. gabapentin (NEURONTIN) 100 mg capsule Take 1 capsule by mouth daily at bedtime for 181 days. atorvastatin (LIPITOR) 40 mg tablet Take 1 tablet by mouth once daily. omeprazole (PRILOSEC) 20 mg capsule Take 1 capsule by mouth once daily. diphenhydrAMINE (BENADRYL) 25 mg capsule Take 1-2 capsules by mouth at bedtime as needed. lisinopril-hydroCHLOROthiazide (ZESTORETIC) 10-12.5 mg per tablet Take 1 tablet by mouth once daily. meloxicam (MOBIC) 15 mg tablet Take 1 tablet by mouth once daily. cyclobenzaprine (FLEXERIL) 10 mg tablet Take 1 tablet by mouth two times a day as needed. cyanocobalamin, vitamin B-12, (VITAMIN B-12 ORAL) Take by mouth. loratadine (CLARITIN) 10 mg tablet Take 1 tablet by mouth once daily. (Patient not taking: Reported on 09/29/2024) dextromethorphan-guaiFENesin (MUCINEX DM) 30-600 mg per tablet Take 1 tablet by mouth two times a day. ibuprofen (MOTRIN) 800 mg tablet Take 1 tablet by mouth every 8 hours as needed for pain. Take with food. mometasone (NASONEX) 50 mcg/actuation nasal spray USE 2 SPRAYS NASAL (more content not included)...[facility]02-05-2025 History of Present illness Narrative* Calli Duvall, MED PEDS.HYDROGENATION STILL OPERATOR - 10/07/2024 6:31 PM EST CC: Patient presents with: Memory Loss: Body aches, dry mouth HPI Allie Lynn is a 54 year old female who presents today for above. Patient has multiple concerns today including memory impairment, weakness, tremors, fatigue, and dry mouth. Most of these symptoms were discussed in great length with her PCP on 09/29. She was started on Wellbutrin for depression and Trazodone was increased for sleep issues. Dry mouth started after this but other symptoms have been chronic. She feels they may be slightly worse since 09/29, especially the memory impairment. She describes this as been forgetful and difficulty focusing. Denies acute confusion or disorientation. The only other change since visit with PCP is she broke up with her boyfriend of many years. Wonderingabout possible short term inpatient mental health treatment in future, does not feel she needs it at this time. Denies SI or HI, states I would never hurt myself. Also interested in home health aide which was also discussed with her PCP. Review of Systems See HPI 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 Macular degeneration disease bilateral Mitral prolapse per Mitral valve disorders(424.0) Mitral valve stenosis and aortic valve stenosis Myalgia and myositis, unspecified PXE (pseudoxanthoma elasticum) Rheumatic fever 1995 Rheumatic heart disease, unspecified Tubular adenoma of colon Unspecified essential hypertension PAST SURGICAL HISTORY Procedure Laterality Date ARTHROSCOPY KNEE DIAGNOSTIC W/WO SYNOVIAL BX SPX 1995 Arthroscopy, knee AVASTIN (BEVACIZUMAB) 1.25MG INTRAVITREAL INJECTION OD (RIGHT EYE) Right x 5 (03/12/17) DELIVERY ONLY 1988, 1991, 1993 , low cervical-x 3 COLONOSCOPY FLX DX W/COLLJ SPEC WHEN PFRMD 06/22/2019 Colonoscopy COLONOSCOPY SCREENING 05/30/[address] MAXILLOFAC/SINUS 06/29/2015 normal EGD W/O BRSH SPEC VARICIES INJ 05/30/2023 Small hiatal hernia, fundic gland polyp, mild chronic gastritis ENDOMETRIAL BX W/WO ENDOCERVIX BX W/O DILAT SPX 02/18/2012 ESOPHAGOGASTRODUODENOSCOPY TRANSORAL DIAGNOSTIC 02/03/2018 EGD INCISION OF EYE, TRABECULECTOMY Right 10/26/2021 LASER SELECTA 2 TRABECULOPLASTY Left 01/08/2020 LASER TRABECULOPLASTY OD (RIGHT EYE) Right 10/26/2021 PAST SURGICAL HISTORY OF Bilateral trigger finger release PAST SURGICAL HISTORY OF Left laser surgery to repair capsular rupture REMV CATARACT EXTRACAP,INSERT LENS Right 06/25/2022 REMV CATARACT EXTRACAP,INSERT LENS Left 11/15/2022 PEIOL OS and bleb revision (bleb reduction) x 11/15/2022- Dr. Cynthia aRmos M.D. S [place]ALLO[place],UTERINE ABLATION [id number] ALLERGIES Ultram [Tramadol Hcl], Darvocet A500 [Propoxyphene N-Acetaminophen], Hydrocodone Bitartrate, Nitrofurantoin, Opioids - Morphine Analogues, Propoxyphene, Tramadol, and Vicodin [Hydrocodone-Acetaminophen] MEDICATIONS amLODIPine (NORVASC) 2.5 mg tablet Take 1 tablet by mouth once daily. buPROPion SR (WELLBUTRIN SR) 100 mg 12 hr tablet Take 1 tablet by mouth once daily. traZODone (DESYREL) 100 mg tablet Take 1 tablet by mouth daily at bedtime. estradiol (VIVELLE-DOT) 0.1 mg/24 hr patch Apply 1 Patch as directed two times a week. TWICE WEEKLY progesterone micronized (PROMETRIUM) 100 mg capsule Take 1 capsule by mouth daily at bedtime. fluticasone (FLONASE) 50 mcg/actuation nasal spray Use 2 Sprays in each nostril once daily. Rinse mouth after use. gabapentin (NEURONTIN) 100 mg capsule Take 1 capsule by mouth daily at bedtime for 181 days. atorvastatin (LIPITOR) 40 mg tablet Take 1 tablet by mouth once daily. omeprazole (PRILOSEC) 20 mg capsule Take 1 capsule by mouth once daily. diphenhydrAMINE (BENADRYL) 25 mg capsule Take 1-2 capsules by mouth at bedtime as needed. lisinopril-hydroCHLOROthiazide (ZESTORETIC) 10-12.5 mg per tablet Take 1 tablet by mouth once daily. meloxicam (MOBIC) 15 mg tablet Take 1 tablet by mouth once daily. cyclobenzaprine (FLEXERIL) 10 mg tablet Take 1 tablet by mouth two times a day as needed. cyanocobalamin, vitamin B-12, (VITAMIN B-12 ORAL) Take by mouth. loratadine (CLARITIN) 10 mg tablet Take 1 tablet by mouth once daily. (Patient not taking: Reportedon 09/29/2024) dextromethorphan-guaiFENesin (MUCINEX DM) 30-600 mg per tablet Take 1 tablet by mouth two times a day. ibuprofen (MOTRIN) 800 mg tablet Take 1 tablet by mouth every 8 hours as needed for pain. Take withfood. mometasone (NASONEX) 50 mcg/actuation nasal spray USE 2 SPRAYS NASALLY ONCE DAILY. RINSE MOUTH AFTER USE. keTORolac (ACULAR) 0.5 % ophthalmic solution Use 1 Drop in the left eye four times daily. Use as needed for eye pain (Patient not taking: Reported on 09/29/2024) L.acid/B.animalis,bifidum/FOS (PROBIOTIC COMPLEX ORAL) Take by mouth. biotin/calcium carbonate (BIOTIN-CALCIUM ORAL) Take by mouth. vitamin B complex (B COMPLEX-VITAMIN B12 ORAL) Take by mouth. aspirin, enteric coated (ASPIR-LOW) 81 mg EC tablet Take 1 tablet by mouth once daily. FAMILY HISTORY Problem Relation Age of Onset Heart Father Age 61 Heart Maternal Grandfather Cancer Paternal Grandmother Breast Cancer Maternal Aunt 55 ovarian cancer Heart Son MS Ovarian cancer Maternal Grandmother Glaucoma No Family History Detached Retina No Family History Macular Degen No Family History Blindness No Family History Amblyopia No Family History Social History Tobacco Use Smoking status: Never Smokeless tobacco: Never Vaping Use Vaping status: Never Used Substance Use Topics Alcohol use: No Drug use: No BP 124/62 Pulse 103 Temp 36.8 C (98.2 F) (Temporal) Resp 16 Wt 73 kg (160 lb 15 oz) SpO2 96% BMI 30.41 kg/m Physical Exam Vitals reviewed. Constitutional: Appearance: Normal appearance. Neurological: Mental Status: She is alert. Psychiatric: Attention and Perception: Attention normal. Mood and Affect: Affect normal. Mood is anxious. Speech: Speech normal. Behavior: Behavior normal. Thought Content: Thought content normal. Cognition and Memory: Cognition normal. Judgment: Judgment normal. Comments: MiniCog score today 01/04 ASSESSMENT/PLAN: 1. Memory impairment - ICD9: 780.93, ICD10: R41.3 (primary diagnosis) Multifactorial etiology including depression. Patient reports worsening over the past week however after discussing with her and reviewing Dr. Davis's note there does not seem to be much change. She is not having any symptoms of acute delirium or confusion. She could consider decreasing Trazodone dose back down to the 50 mg for a few days to see if there is any improvement. Recommend scheduling sooner appointment with her PCP in the next couple weeks, she is agreeable. Advised patient she should go to the ER for any acutely worsening symptoms, she verbalized understanding. 2. Dry mouth - ICD9: 527.7, ICD10: R68.2 Suspect due to Wellbutrin. Discussed symptom management. 3. Depression, unspecified depression type - ICD9: 311, ICD10: F32.A Continue with Wellbutrin. See #1 Prescription instructions reviewed with patient as applicable. Potential red flag symptoms discussed with the patient. Reviewed appropriate action plan to take if red flag symptoms occur. Patient agreeable to treatment plan. During this patient visit I have spent approximately 30 minutes in counseling regarding treatment options, medications, and coordinating care. Calli Duvall APRN.HYDROGENATION STILL OPERATOR documented in this encounterFirelands [facility] Center02-05-2025 Telephone encounter Note * Telephone Encounter - Starla Mckeon LPN - 10/07/2024 3:50 PM EST Pt called in today to report she is not feeling herself. For approx 2 weeks pt reports she is not walking straight, forgetting things. Not able to finish her sentences all the time. Pt reports she went thru a bad break up but does not feel this is the cause. Pt has dry mouth and feels like at ties her tongue is sticking to her mouth. Pt not sure if the new medications she was put on could be causing this. Wellbutrin or Amlodipine. Pt denies, chest pain, SOB, difficulty breathing, neck pain. Pt scheduled for apt today 10-07-24. Pt's provider/team not available, scheduled with other provider. Starla Mckeon LPN [facility]02-05-2025 Miscellaneous Notes* Telephone Encounter - Starla Mckeon LPN - 10/07/2024 3:50 PM EST Pt called in today to report she is not feeling herself. For approx 2 weeks pt reports she is not walking straight, forgetting things. Not able to finish her sentences all the time. Pt reports she went thru a bad break up but does not feel this is the cause. Pt has dry mouth and feels like at ties her tongue is sticking to her mouth. Pt not sure if the new medications she was put on could be causing this. Wellbutrin or Amlodipine. Pt denies, chest pain, SOB, difficulty breathing, neck pain. Pt scheduled for apt today 10-07-24. Pt's provider/team not available, scheduled with other provider. Starla Mckeon LPN documented in this encounterFirelands Regional Medical Center02-05-2025 Telephone encounter Note * Telephone Encounter - Dara Valdez RN - 10/07/2024 10:57 AM EST Patient calls and states that she had talked with provider about having another sleep study done doto issues with previous sleep study. Patient calling and asking about where she should get next onedone? Patient would also like to get this scheduled. Please review and advise, Dara Valdez RN [facility]01-28-2025 NoteHNO ID: [id number] Author: IFEOMA DAVIS MD Service: ? Author Type: Physician Type: Progress Notes Filed: 09/29/2024 17:40 Note Text: CC: Patient presents with: F/U 6 months HPI Allie Lynn is a 53 year old female who presents today for 6-month follow-up. 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 Dr. 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 States she has not had a bleed in her eye at a long time, but at the same time she states she wouldn't see it at this point. Slowly progressive loss of peripheral vision. Patient also reports that she has issues with calcified joints/arthritis. She has moved back to [place], so she can use the [employer] for going places, [employer]. She is engaged in a lot of activities, and is giving back to the community as much as she can in every way she can. She has a son in [place], and a brother near by. Her eyes are getting worse, but she does not want to use the cane because it would make her more limited. HPL: Reviewed test results with patient , takes medications regularly , does not report side effects. Conscious to avoid red meats, full fat dairy and its by products. Exercising 3 to 5 times a week. HTN: BP controlled today. Checks BP at home. Compliant with medications. Denies any chest pain, palpitations, SOB, swelling in the feet. Careful with diet to avoid salt, trying to eat more fruits and vegetables, exercises regularly She is extremely active in the community. Takes the [employer] bus to [employer] every Saturday, as well as to her Bible studies throughout the week. States these activities are very important to her because it helps keep her mentally sharp. In regards to activities that are giving her increased difficulty-she can no longer see shade variations, so has issues taking care of the house and getting dressed and ready daily. Bradly stated that her boyfriend, Rg- could help her with day to day tasks, but he also works so he is not available full-time. Needs include home health aid, usp if applicable - says her boyfriend could help her for a portion of the time (as he does already in the mornings),Patient states that she is able to adequately bathe herself, but feels like someone needs to be present so she doesn't slip getting out of the shower, etc. Needs include assistance with organizing medications for the week, personal/self care (picking out clothes, getting ready for the day). Assistance with cleaning, food preparation, Assistance with paperwork for job and family services-- any and all other resources that could be Had worked with an OT previously through [facility] in [place] previously who assisted with various techniques and resources to help making ADLs easier, but states she hasn't continued to pursue this because it's never covered by insurance Pt reports that she's very much so independent and never wants to maru helpless or feel sorry for herself, but she's afraid that if her condition progresses any further without asking for some form of assistance, she will put herself in harm's way, attempting to perform tasks that she shouldn't be on her own. Pt is also requesting uric acid lab be ordered d/t issues with pain and swelling in hands. Patient reports feeling very tired in the morning when she wakes up, not feeling very rested and also sleepy during the daytime. She does have a headache sometimes in the morning when she wakes up. She has not been sleeping with anyone for the past few years so she is unclear whether she snores or not at nighttime but a few times she has caught herself gasping when she wakes up. 09/29/24: Finally broken up with her BF for 13 years, which was weighing on her. She knew it was coming, wanted to and it was also mutual but now she is feeling so sad, and down, a lot of it is grief about what she has been through and the toxicity. Feels like she has let her family and herself down and she has guilt , shame. She has not been able to sleep, despite having a fixed sleep and wake up times. She does not watch tv at bed time. Is taking trazodone but that has not been helping her much. REVIEW OF SYSTEMS See HPI All other systems negative. 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 Macular degeneration disease bilateral Mitral prolapse per Mitral valve disorders(424.0) M (more content not included)...[facility]01-28-2025 History of Present illness Narrative* Ifeoma Davis MD - 09/29/2024 2:28 PM EST CC: Patient presents with: F/U 6 months HPI Allie Lynn is a 53 year old female who presents today for 6-month follow-up. 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 Dr. 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 States she has not had a bleed in her eye at a long time, but at the same time she states she wouldn't see it at this point. Slowly progressive loss of peripheral vision. Patient also reports that she has issueswith calcified joints/arthritis. She has moved back to [place], so she can use the [employer] for going places, [employer]. She is engaged in a lot of activities, and is giving back to the community as much as she can in every way she can. She has a son in [place], and a brother near by. Her eyes are getting worse, but she doesnot want to use the cane because it would make her more limited. HPL: Reviewed test results with patient , takes medications regularly , does not report side effects. Conscious to avoid red meats, full fat dairy and its by products. Exercising 3 to 5 times a week. HTN: BP controlled today. Checks BP at home. Compliant with medications. Denies any chest pain, palpitations, SOB, swelling in the feet. Careful with diet to avoid salt, trying to eat more fruits andvegetables, exercises regularly She is extremely active in the community. Takes the [employer] bus to [employer] every Saturday, as well as to her Bible studies throughout the week. States these activities are very important to her because it helps keep her mentally sharp. In regards to activities that are giving her increased difficulty-she can no longer see shade variations, so has issues taking care of the house and getting dressed and ready daily. Bradly stated that her boyfriend, Rg- could help her with day to day tasks, but he also works so he is not available full-time. Needs include home health aid, usp if applicable - says her boyfriend could help her for a portion of the time (as he does already in the mornings),Patient states that she is able to adequately bathe herself, but feels like someone needs to be present so she doesn't slip getting out of the shower, etc. Needs include assistance with organizing medications for the week, personal/self care (picking out clothes, getting ready for the day). Assistance with cleaning, food preparation, Assistance with paperwork for job and family services-- any and all other resources that could be Had worked with an OT previously through [facility] in [place] previously who assisted with various techniques and resources to help making ADLs easier, but states she hasn't continued to pursue this because it's never covered by insurance Pt reports that she's very much so independent and never wants to maru helpless or feel sorry for herself, but she's afraid that if her condition progresses any further without asking for some form ofassistance, she will put herself in harm's way, attempting to perform tasks that she shouldn't be on her own. Pt is also requesting uric acid lab be ordered d/t issues with pain and swelling in hands. Patient reports feeling very tired in the morning when she wakes up, not feeling very rested and also sleepy during the daytime. She does have a headache sometimes in the morning when she wakes up. She has not been sleeping with anyone for the past few years so she is unclear whether she snores or not at nighttime but a few times she has caught herself gasping when she wakes up. 09/29/24: Finally broken up with her BF for 13 years, which was weighing on her. She knew it was coming, wanted to and it was also mutual but now she is feeling so sad, and down, a lot of it is grief about what she has been through and the toxicity. Feels like she has let her family and herself down and she has guilt , shame. She has not been able to sleep, despite having a fixed sleep and wake up times. She does not watch tv at bed time. Is taking trazodone but that has not been helping her much. REVIEW OF SYSTEMS See HPI All other systems negative. 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 Macular degeneration disease bilateral Mitral prolapse per Mitral valve disorders(424.0) Mitral valve stenosis and aortic valve stenosis Myalgia and myositis, unspecified PXE (pseudoxanthoma elasticum) Rheumatic fever 1995 Rheumatic heart disease, unspecified Tubular adenoma of colon Unspecified essential hypertension PAST SURGICAL HISTORY Procedure Laterality Date ARTHROSCOPY KNEE DIAGNOSTIC W/WO SYNOVIAL BX SPX 1995 Arthroscopy, knee AVASTIN (BEVACIZUMAB) 1.25MG INTRAVITREAL INJECTION OD (RIGHT EYE) Right x 5 (03/12/17) DELIVERY ONLY 1988, 1991, 1993 , low cervical-x 3 COLONOSCOPY FLX DX W/COLLJ SPEC WHEN PFRMD 06/22/2019 Colonoscopy COLONOSCOPY SCREENING 05/30/[address] MAXILLOFAC/SINUS 06/29/2015 normal EGD W/O BRSH SPEC VARICIES INJ 05/30/2023 Small hiatal hernia, fundic gland polyp, mild chronic gastritis ENDOMETRIAL BX W/WO ENDOCERVIX BX W/O DILAT SPX 02/18/2012 ESOPHAGOGASTRODUODENOSCOPY TRANSORAL DIAGNOSTIC 02/03/2018 EGD INCISION OF EYE, TRABECULECTOMY Right 10/26/2021 LASER SELECTA 2 TRABECULOPLASTY Left 01/08/2020 LASER TRABECULOPLASTY OD (RIGHT EYE) Right 10/26/2021 PAST SURGICAL HISTORY OF Bilateral trigger finger release PAST SURGICAL HISTORY OF Left laser surgery to repair capsular rupture REMV CATARACT EXTRACAP,INSERT LENS Right 06/25/2022 REMV CATARACT EXTRACAP,INSERT LENS Left 11/15/2022 PEIOL OS and bleb revision (bleb reduction) x 11/15/2022- Dr. Cynthia Ramos M.D. S BALLOON,UTERINE ABLATION [address]20 ALLERGIES Ultram [Tramadol Hcl], Darvocet A500 [Propoxyphene N-Acetaminophen], Hydrocodone Bitartrate, Nitrofurantoin, Opioids - Morphine Analogues, Propoxyphene, Tramadol, and Vicodin [Hydrocodone-Acetaminophen] MEDICATIONS estradiol (VIVELLE-DOT) 0.1 mg/24 hr patch Apply 1 Patch as directed two times a week. TWICE WEEKLY progesterone micronized (PROMETRIUM) 100 mg capsule Take 1 capsule by mouth daily at bedtime. fluticasone (FLONASE) 50 mcg/actuation nasal spray Use 2 Sprays in each nostril once daily. Rinse mouth after use. gabapentin (NEURONTIN) 100 mg capsule Take 1 capsule by mouth daily at bedtime for 181 days. atorvastatin (LIPITOR) 40 mg tablet Take 1 tablet by mouth once daily. omeprazole (PRILOSEC) 20 mg capsule Take 1 capsule by mouth once daily. lisinopril-hydroCHLOROthiazide (ZESTORETIC) 10-12.5 mg per tablet Take 1 tablet by mouth once daily. meloxicam (MOBIC) 15 mg tablet Take 1 tablet by mouth once daily. traZODone (DESYREL) 50 mg tablet Take 1 tablet by mouth daily at bedtime. cyclobenzaprine (FLEXERIL) 10 mg tablet Take 1 tablet by mouth two times a day as needed. cyanocobalamin, vitamin B-12, (VITAMIN B-12 ORAL) Take by mouth. ibuprofen (MOTRIN) 800 mg tablet Take 1 tablet by mouth every 8 hours as needed for pain. Take withfood. mometasone (NASONEX) 50 mcg/actuation nasal spray USE 2 SPRAYS NASALLY ONCE DAILY. RINSE MOUTH AFTER USE. L.acid/B.animalis,bifidum/FOS (PROBIOTIC COMPLEX ORAL) Take by mouth. biotin/calcium carbonate (BIOTIN-CALCIUM ORAL) Take by mouth. vitamin B complex (B COMPLEX-VITAMIN B12 ORAL) Take by mouth. aspirin, enteric coated (ASPIR-LOW) 81 mg EC tablet Take 1 tablet by mouth once daily. diphenhydrAMINE (BENADRYL) 25 mg capsule Take 1-2 capsules by mouth at bedtime as needed. loratadine (CLARITIN) 10 mg tablet Take 1 tablet by mouth once daily. (Patient not taking: Reportedon 09/29/2024) dextromethorphan-guaiFENesin (MUCINEX DM) 30-600 mg per tablet Take 1 tablet by mouth two times a day. keTORolac (ACULAR) 0.5 % ophthalmic solution Use 1 Drop in the left eye four times daily. Use as needed for eye pain (Patient not taking: Reported on 09/29/2024) FAMILY HISTORY Problem Relation Age of Onset Heart Father Age 61 Heart Maternal Grandfather Cancer Paternal Grandmother Breast Cancer Maternal Aunt 55 ovarian cancer Heart Son MS Ovarian cancer Maternal Grandmother Glaucoma No Family History Detached Retina No Family History Macular Degen No Family History Blindness No Family History Amblyopia No Family History Social History Tobacco Use Smoking status: Never Smokeless tobacco: Never Vaping Use Vaping status: Never Used Substance Use Topics Alcohol use: No Drug use: No PHYSICAL EXAM BP 138/88 Pulse 86 Resp 16 Wt 73 kg (161 lb) BMI 30.42 kg/m General appearance: Well appearing, alert, in no acute distress, well-hydrated, well nourished. Skin: Areas on the neck where she had procedures, there is hyperpigmentation and some coarse nests. Head: Normocephalic, no masses, lesions, tenderness or abnormalities Eyes: Anicteric sclera. Pupils are equally round and reactive to light. Extraocular movements are intact. Ears: External ears normal, canals clear Nose/Sinuses: Nares normal, septum midline, mucosa normal, no drainage or sinus tenderness Oropharynx: Lips, mucosa, and tongue normal, teeth and gums normal, oropharynx normal Neck: Supple, no adenopathy; thyroid symmetric, normal size, no bruits Back: Normal exam Lungs: Lungs clear to auscultation. No wheezing, rhonchi, rales Heart: RRR without murmur, gallop, or rubs. No ectopy Abdomen: Normal abdominal exam, Abdomen soft, non-tender. Bowel sounds normal. No masses, organomegaly Extremities: No deformities, edema, skin discoloration, clubbing or cyanosis. Good capillary refill. Musculoskeletal: No joint swelling, deformity, or tenderness Peripheral pulses: Normal Neuro: Gait normal. Reflexes normal and symmetric. Sensation grossly intact. ASSESSMENT/PLAN: 1. Depression, unspecified depression type - ICD9: 311, ICD10: F32.A (primary diagnosis) Trial of wellbutrin. Discussed SSRI's in detail, their side effects including weight gain in some, sexual side effects, that it needs to build up in their system and usually in the 3rd week they will start feeling the effects. Also discussed that each SSRI may affect differently , might have to try a couple before finding out a perfect fit. 2. Encounter for immunization - ICD9: V03.89, ICD10: Z23 - PNEUMOCOCCAL VACCINE, 20 VALENT (PREVNAR 20) 3. Insomnia, unspecified type - ICD9: 780.52, ICD10: G47.00 Increased the trazodone to 100 mgs. - TRAZODONE 100 MG TABLET - TRAZODONE 100 MG TABLET Ifeoma Davis MD documented in this encounterFirelands [facility] Center01-27-2025 Telephone encounter Note * Telephone Encounter - Letty Morales LPN - 09/28/2024 8:51 AM EST Office note faxed per request. Letty Morales LPN [facility]01-24-2025 Telephone encounter Note* Telephone Encounter - Michelle Chin APRN.CNP - 09/25/2024 4:36 PM EST Please print my note and I'll write a msg to Dr Betancourt, we can fax him, then we'll let her know. We could use [facility] lab. She can still take flexeril. Michelle Chin APRN.CNP [facility] Work Phone: [phone]) 398-349401-24-2025 Telephone encounter Note* Telephone Encounter - Letty Morales LPN - 09/25/2024 4:26 PM EST TC to pt who had questions about flexeril, she has been taking it every night to see if it helps with the leg spasms. Wonders if she can still take this or if she will need to stop them. Is okay withincreasing the gabapentin, uses [facility] in [place]. Aware we need to talk to Dr. Betancourt. Has upcoming appts with PCP and pain management. Is okay to do a sleep study using [facility] but is unable to travel out of town very far. Letty Morales LPN [facility]01-24-2025 Telephone encounter Note* Telephone Encounter - Michelle Chin APRN.CNP - 09/25/2024 3:52 PM EST Please CALL pt and tell her I reviewed her case with Dr Jiménez. 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 If we better control the leg movements then that might make her sleep more refreshing. He recommends we try increasing gabapentin from 100 mg to 300 mg at HS--I will contact Dr Betancourt about that since he prescribes it. --Please recommend she avoid benedryl which can make the leg movements worse. --We can consider another sleep study with her trying to sleep on her back. If she wants to do thatwould she consider going to a [facility] sleep lab? Michelle Chin APRN.DEBORAH [facility]01-23-2025 History of Present illness Narrative* Michelle Chin APRN.DEBORAH - 09/24/2024 3:00 PM EST Images from the original note were not included. Addendum: I reviewed her case with Dr Jiménez. We looked at her [facility] sleep study report including hypnogram--Dr Jiménez believes she is having REM-related apneas and that her PLMs were under-scored. He recommends we try increasing gabapentin from 100 mg to 300 mg at HS--I will contact Dr Betancourt about that since he prescribes it. Will recommend she avoid benedryl. We can consider another PSG with encouraging supine sleep, could give ambien that night, would prefer [facility] sleep lab but she would requirea stunt driver due to her blindness. Michelle Chin APRN.[facility] New Patient Evaluation PATIENT NAME: Allie Lynn DATE OF SERVICE: September 24, 2024 CONSULTING PROVIDER: Dr Davis REASON FOR CONSULT: sends the patient for an opinion about DAYSI, blindness. My findings and recommendations will be transmitted electronically via shared medical record to the consulting provider. HPI: Allie Lynn is a 54 year old female. Sleep-related history: Sleep isn't refreshing, wakes up and feels like she didn't sleep at all. Sheis legally blind. She has PXE pseudoxanthoma elasticum. She sees colors when she closes her eyes tosleep--purple or neon green, due to scarring. She takes trazodone and cyclobenzaprine 30 min beforebedtime. Sometimes takes benedryl. Also on gabapentin at . Had a PSG at [facility] -- didn't meet criteria for DAYSI using the 4% scoring rule that her insurer requires. Takes gabapentin 100 mg at bedtime for nerve pain in neck. Sees Pain Mgmt. Rarely takes percocet. Lives alone. 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 SLEEP-WAKE SCHEDULE Bedtime: 9-930 PM. Listens to a book. She does not have a hard time falling asleep. Wake time: 8-830 AM, without an alarm. After falling asleep: she does not usually wake up during the night. On weekends, she maintains the same sleep schedule. Average total sleep time (in a 24 hour period): 10 hours?, she isn't sure how long she sleeps. SLEEP-RELATED DETAILS Preferred sleep position: back Breathing disturbances and other behaviors during sleep: snoring. Bruxism: No GERD or aspiration: No Waking up with heart pounding or racing: No Anxiety or rumination: No She does not report having an urge to move the legs in the evening (when resting) that is accompanied or caused by uncomfortable and/or unpleasant sensations in the legs. She has been told that she has leg kicking during sleep. Takes cyclobenzaprine at bedtime for she thinks leg movements in her sleep. She denies any history of parasomnias. Excessive daytime sleepiness / fatigue is a problem. Excessive Daytime sleepiness/fatigue has been a problem for 5 years. There is no history of a viral illness or significant head injury prior to the start of daytime sleepiness. She does not report sleep paralysis but has had rare sleep-related hallucinations WAKE-RELATED DETAILS She does not work. She does have difficulty with memory (eg, why walked in a room) but not with concentration. She does not drive. She does not take naps. Might rest her eyes for 20 minutes per day -- needs to close her eyes, get them out of the light. She does drink 2 caffeinated beverages per day. She has gained 10 pounds since 6 mos. Patient Questionnaires Sleep Scores PAST TREATMENTS: None PRIOR SLEEP STUDIES: Remote sleep study in the , was told it looked like she was riding bicycle all night A Polysomnogram performed on 07/22/24 at [facility] revealed an AHI of 8.1 (3%) (her AHI using 4% scoring was 2.5); supine index of 12.3; REM index of 11, PLM index of 9.5, PLM arousal index of ?, and the oxygen saturation was below 88% for 0.1% of the study. Sleep efficiency 95%. There was a non-sustained run of wide complex tachycardia (6 beat). She spent 57% of the night supine, 43% of the night off-supine. 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 Macular degeneration disease bilateral Mitral prolapse per Mitral valve disorders(424.0) Mitral valve stenosis and aortic valve stenosis Myalgia and myositis, unspecified PXE (pseudoxanthoma elasticum) Rheumatic fever 1995 Rheumatic heart disease, unspecified Tubular adenoma of colon Unspecified essential hypertension PAST SURGICAL HISTORY Procedure Laterality Date ARTHROSCOPY KNEE DIAGNOSTIC W/WO SYNOVIAL BX SPX 1995 Arthroscopy, knee AVASTIN (BEVACIZUMAB) 1.25MG INTRAVITREAL INJECTION OD (RIGHT EYE) Right x 5 (03/12/17) DELIVERY ONLY 1988, 1991, 1993 , low cervical-x 3 COLONOSCOPY FLX DX W/COLLJ SPEC WHEN PFRMD 06/22/2019 Colonoscopy COLONOSCOPY SCREENING 05/30/[address] MAXILLOFAC/SINUS 06/29/2015 normal EGD W/O BRSH SPEC VARICIES INJ 05/30/2023 Small hiatal hernia, fundic gland polyp, mild chronic gastritis ENDOMETRIAL BX W/WO ENDOCERVIX BX W/O DILAT SPX 02/18/2012 ESOPHAGOGASTRODUODENOSCOPY TRANSORAL DIAGNOSTIC 02/03/2018 EGD INCISION OF EYE, TRABECULECTOMY Right 10/26/2021 LASER SELECTA 2 TRABECULOPLASTY Left 01/08/2020 LASER TRABECULOPLASTY OD (RIGHT EYE) Right 10/26/2021 PAST SURGICAL HISTORY OF Bilateral trigger finger release PAST SURGICAL HISTORY OF Left laser surgery to repair capsular rupture REMV CATARACT EXTRACAP,INSERT LENS Right 06/25/2022 REMV CATARACT EXTRACAP,INSERT LENS Left 11/15/2022 PEIOL OS and bleb revision (bleb reduction) x 11/15/2022- Dr. Cynthia Ramos M.D. 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 Mixed Hyperlipidemia Bppv (Benign Paroxysmal Positional Vertigo) Nausea Bilateral Upper Abdominal Pain Secondary Glaucoma, Indeterminate Stage, Bilateral Obesity, Class I, Bmi 30-34.9 Blindness Right Eye Category 3, Blindness Left Eye Category 4 Pseudophakia, Right Eye Hyperopia of Right Eye Allergies As of Date: 09/24/2024 Allergen Noted Reaction ULTRAM [TRAMADOL HCL] 03/12/2006 Vomiting DARVOCET A500 [PROPOXYPHENE N-GABRIEL*04/28/2012 Mental Status Change HYDROCODONE BITARTRATE 10/19/2017 Itching NITROFURANTOIN 03/05/2020 Other: See Comments OPIOIDS - MORPHINE ANALOGUES 03/05/2020 Itching PROPOXYPHENE 03/05/2020 Other: See Comments TRAMADOL 03/05/2020 Other: See Comments VICODIN [HYDROCODONE-ACETAMINOPHE*04/28/2012 Itching Fully Assessed 09/15/2024 CURRENT MEDICATIONS: estradiol (VIVELLE-DOT) 0.1 mg/24 hr patch Apply 1 Patch as directed two times a week. TWICE WEEKLY progesterone micronized (PROMETRIUM) 100 mg capsule Take 1 capsule by mouth daily at bedtime. fluticasone (FLONASE) 50 mcg/actuation nasal spray Use 2 Sprays in each nostril once daily. Rinse mouth after use. gabapentin (NEURONTIN) 100 mg capsule Take 1 capsule by mouth daily at bedtime for 181 days. atorvastatin (LIPITOR) 40 mg tablet Take 1 tablet by mouth once daily. omeprazole (PRILOSEC) 20 mg capsule Take 1 capsule by mouth once daily. cyclobenzaprine (FLEXERIL) 10 mg tablet Take 1 tablet by mouth two times a day as needed. diphenhydrAMINE (BENADRYL) 25 mg capsule Take 1-2 capsules by mouth at bedtime as needed. lisinopril-hydroCHLOROthiazide (ZESTORETIC) 10-12.5 mg per tablet Take 1 tablet by mouth once daily. meloxicam (MOBIC) 15 mg tablet Take 1 tablet by mouth once daily. traZODone (DESYREL) 50 mg tablet Take 1 tablet by mouth daily at bedtime. cyclobenzaprine (FLEXERIL) 10 mg tablet Take 1 tablet by mouth two times a day as needed. cyanocobalamin, vitamin B-12, (VITAMIN B-12 ORAL) Take by mouth. loratadine (CLARITIN) 10 mg tablet Take 1 tablet by mouth once daily. dextromethorphan-guaiFENesin (MUCINEX DM) 30-600 mg per tablet Take 1 tablet by mouth two times a day. ibuprofen (MOTRIN) 800 mg tablet Take 1 tablet by mouth every 8 hours as needed for pain. Take withfood. mometasone (NASONEX) 50 mcg/actuation nasal spray USE 2 SPRAYS NASALLY ONCE DAILY. RINSE MOUTH AFTER USE. keTORolac (ACULAR) 0.5 % ophthalmic solution Use 1 Drop in the left eye four times daily. Use as needed for eye pain L.acid/B.animalis,bifidum/FOS (PROBIOTIC COMPLEX ORAL) Take by mouth. biotin/calcium carbonate (BIOTIN-CALCIUM ORAL) Take by mouth. vitamin B complex (B COMPLEX-VITAMIN B12 ORAL) Take by mouth. aspirin, enteric coated (ASPIR-LOW) 81 mg EC tablet Take 1 tablet by mouth once daily. Prior RLS Medications (last 20 years) 11/07/2022 RLS Medications hydromorphone HCl, hydromorphone HCl/PF 0.2 mg, INTRAVENOUS, EVERY 5 MINUTES NEEDED, 10 doses, Starting on Sat11/07/22 at 1033, Until Sat11/07/22 at 1357, SECOND LINE THERAPY for mild, moderate, or severe pain USE FOR MILD PAIN ONLY IF PATIENT IS UNABLE TO TOLERATE ORAL THERAPY Recovery or Phase I (only) -Discontinued (AUTO DC AT D) meperidine HCl/PF 12.5 mg, INTRAVENOUS, EVERY 10 MINUTES NEEDED, 2 doses, Starting on Sat11/07/22at 1033, Until Sat11/07/22 at 1357, for shivering May Repeat 12.5 mg in 10 minutes X1 Recovery or Phase I (only) -Discontinued (AUTO DC AT D) oxycodone HCl 10 mg, ORAL, NEEDED, 1 dose, Starting on Sat11/07/22 at 1033, Until Sat11/07/22 at 1357, Moderate Pain (4-6) - Enteral, Severe Pain (>/=7) - Enteral, Recovery or Phase I (only) -Discontinued (AUTO DC AT D) Details Hospital medication Prior Insomnia Medications (last 20 years) 04/30/2023 23:59 Insomnia Medications trazodone HCl 50 mg AT BEDTIME ORAL -Discontinued (DUPLICATE EN) trazodone HCl 50 mg AT BEDTIME ORAL Details Outpatient prescription Review of Systems HENT: Positive for congestion. Genitourinary: Negative for nocturia. Musculoskeletal: Positive for arthralgias and myalgias. Chronic neck pain, sees Pain Mgmt Dr Dugan SOCIAL HISTORY: Social History Tobacco Use Smoking status: Never Smokeless tobacco: Never Vaping Use Vaping status: Never Used Substance Use Topics Alcohol use: No Drug use: No FAMILY HISTORY: FAMILY HISTORY Problem Relation Age of Onset Heart Father Age 61 Heart Maternal Grandfather Cancer Paternal Grandmother Breast Cancer Maternal Aunt 55 ovarian cancer Heart Son MS Ovarian cancer Maternal Grandmother Glaucoma No Family History Detached Retina No Family History Macular Degen No Family History Blindness No Family History Amblyopia No Family History There is no family history of sleep disorders. PHYSICAL EXAMINATION: Vital Signs: BP 122/81 (BP Site: Right Arm, BP Position: Sitting) Pulse 101 Wt 72.7 kg (160 lb 3.2 oz) SpO2 98% BMI 30.27 kg/m PHYSICAL EXAM: General appearance: pleasant, NAD Mental status: alert and oriented, able to provide own history Constitutional: WNL Skin: No visible rashes on exposed skin Neuro: No focal deficits observed, no tremors Using a blind cane IMPRESSION/PLAN: No diagnosis found. Allie Lynn is a delightful 54 year old female with excessive daytime sleepiness, non-restorativesleep, PLMD, legal blindness, XPE, HLD, chronic neck pain, HTN, fibromyalgia She is legally blind. She lives alone with her cat. She has an excellent support system including friends and her 3 sons. Her sleep has been unrefreshing for years. She finds it bothersome to see purple and neon green when she shuts her eyes. She has a regular circadian rhythm. She sleeps approx 10 hrs per night but never feels rested. It sounds like she has a long hx of leg movements in her sleep. PSG at [facility] didn't show significant arousals from PLMs but I do wonder if PLMs are a significant component of her sleep not being restorative. Trazodone could worsen leg movements but she is on low dose of 50 mg. She is on a very low dose of gabapentin -- 100 mg at HS for nerve pain in neck per Pain Mgmt; we could consider a higher dose to treat PLMD. She believes she takes cyclobenzaprine at HS for leg movements. Needs to avoid benedryl which can exacerbate PLMs. Consider repeating her PSG to see if AHI at least 5 with supine sleep. She is willing to repeat it.She is very willing to use PAP therapy. Consider actigraphy to see how much sleep she gets but I don't think that's needed at this time since she doesn't have a circadian rhythm disorder. I will discuss case with Dr Jiménez then call pt with plan Michelle Chin APRN.DEBORAH I spent a total of 60+ minutes on the date of the service which included preparing to see the patient, [id number] patient care, completing clinical documentation, obtaining and/or reviewing separately obtained history, performing a medically appropriate examination, counseling and educating the pa tient/family/caregiver, and communicating with other HCPs (not separately reported). [facility]25 NoteHNO ID: [id number] Author: MICHELLE CHIN APRN.HYDROGENATION STILL OPERATOR Service: ? Author Type: Nurse Practitioner Type: Progress Notes Filed: 09/25/2024 15:51 Note Text: Addendum: I reviewed her case with Dr Jiménez. We looked at her [facility] sleep study report including hypnogram--Dr Jiménez believes she is having REM-related apneas and that her PLMs were under-scored. He recommends we try increasing gabapentin from 100 mg to 300 mg at HS--I will contact Dr Betancourt about that since he prescribes it. Will recommend she avoid benedryl. We can consider another PSG with encouraging supine sleep, could give ambien that night, would prefer F sleep lab but she would require a stunt driver due to her blindness. Michelle Chin APRN.HYDROGENATION STILL OPERATOR [facility] New Patient Evaluation PATIENT NAME: Allie Lynn DATE OF SERVICE: September 24, 2024 CONSULTING PROVIDER: Dr Davis REASON FOR CONSULT: sends the patient for an opinion about DAYSI, blindness. My findings and recommendations will be transmitted electronically via shared medical record to the consulting provider. HPI: Allie Lynn is a 54 year old female. Sleep-related history: Sleep isn't refreshing, wakes up and feels like she didn't sleep at all. She is legally blind. She has PXE pseudoxanthoma elasticum. She sees colors when she closes her eyes to sleep--purple or neon green, due to scarring. She takes trazodone and cyclobenzaprine 30 min before bedtime. Sometimes takes benedryl. Also on gabapentin at HS. Had a PSG at [facility] -- didn't meet criteria for DAYSI using the 4% scoring rule that her insurer requires. Takes gabapentin 100 mg at bedtime for nerve pain in neck. Sees Pain Mgmt. Rarely takes percocet. Lives alone. 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 SLEEP-WAKE SCHEDULE Bedtime: 9-930 PM. Listens to a book. She does not have a hard time falling asleep. Wake time: 8-830 AM, without an alarm. After falling asleep: she does not usually wake up during the night. On weekends, she maintains the same sleep schedule. Average total sleep time (in a 24 hour period): 10 hours?, she isn't sure how long she sleeps. SLEEP-RELATED DETAILS Preferred sleep position: back Breathing disturbances and other behaviors during sleep: snoring. Bruxism: No GERD or aspiration: No Waking up with heart pounding or racing: No Anxiety or rumination: No She does not report having an urge to move the legs in the evening (when resting) that is accompanied or caused by uncomfortable and/or unpleasant sensations in the legs. She has been told that she has leg kicking during sleep. Takes cyclobenzaprine at bedtime for she thinks leg movements in her sleep. She denies any history of parasomnias. Excessive daytime sleepiness / fatigue is a problem. Excessive Daytime sleepiness/fatigue has been a problem for 5 years. There is no history of a viral illness or significant head injury prior to the start of daytime sleepiness. She does not report sleep paralysis but has had rare sleep-related hallucinations WAKE-RELATED DETAILS She does not work. She does have difficulty with memory (eg, why walked in a room) but not with concentration. She does not drive. She does not take naps. Might rest her eyes for 20 minutes per day -- needs to close her eyes, get them out of the light. She does drink 2 caffeinated beverages per day. She has gained 10 pounds since 6 mos. Patient Questionnaires Sleep Scores PAST TREATMENTS: None PRIOR SLEEP STUDIES: Remote sleep study in the , was told it looked like she was riding bicycle all night A Polysomnogram performed on 07/22/24 at [facility] revealed an AHI of 8.1 (3%) (her AHI using 4% scoring was 2.5); supine index of 12.3; REM index of 11, PLM index of 9.5, PLM arousal index of ?, and the oxygen saturation was below 88% for 0.1% of the study. Sleep efficiency 95%. There was a non-sustained run of wide complex tachycardia (6 beat). She spent 57% of the night supine, 43% of the night off-supine. 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 Macular degeneration disease bilateral Mitral prolapse per Mitral valve disorders(424.0) Mitral valve stenosis and aortic valve stenosis Myalgia and myositis, unspecified PXE (pseudoxanthoma elasticum) Rheumatic fever 1995 Rheumatic heart disease, unspecified Tubular adenoma of colon Unspecified essential hypertension PAST SURGICAL HISTORY Procedure Laterality Date ARTHROSCOPY KNEE DIAGNOSTIC W/WO SYNOVIAL BX SPX 1995 Arthroscopy, knee AVASTIN (BEVACIZUMAB) 1.25MG INTRAVITREAL INJECTION OD (RIGHT EYE) Right x 5 (03/12/17) DELIVERY ONLY 1988 (more content not included)...[facility]01-14-2025 NoteHNO ID: [id number] Author: DESTINEY MCKEON APRN.HYDROGENATION STILL OPERATOR Service: ? Author Type: Nurse Practitioner Type: Progress Notes Filed: 09/15/2024 10:57 Note Text: Allie Lynn is a 54 year old female who presents for problem visit review Prempro medication for weight gain, fatigue, low libido. HPI: Patient presents today with questions about HRT and wondering if there is something different to help with issues listed above. She has been on the Prempro for a number of years. Menopause symptoms are well-controlled at this time, states some hot flashes randomly. OB History T0 L3 SAB0 IAB0 Ectopic0 Multiple0 Live Births0 Network Project Manager History LMP: Ablation Age at Menarche: Age at First : Age at Menopause: Network Project Manager History Comments: Sexual Activity: Not Currently; Male Contraception: No contraception data on record 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 Macular degeneration disease bilateral Mitral prolapse per Mitral valve disorders(424.0) Mitral valve stenosis and aortic valve stenosis Myalgia and myositis, unspecified PXE (pseudoxanthoma elasticum) Rheumatic fever 1995 Rheumatic heart disease, unspecified Tubular adenoma of colon Unspecified essential hypertension PAST SURGICAL HISTORY Procedure Laterality Date ARTHROSCOPY KNEE DIAGNOSTIC W/WO SYNOVIAL BX SPX 1995 Arthroscopy, knee AVASTIN (BEVACIZUMAB) 1.25MG INTRAVITREAL INJECTION OD (RIGHT EYE) Right x 5 (03/12/17) DELIVERY ONLY 1988, 1991, 1993 , low cervical-x 3 COLONOSCOPY FLX DX W/COLLJ SPEC WHEN PFRMD 06/22/2019 Colonoscopy COLONOSCOPY SCREENING 05/30/[address] MAXILLOFAC/SINUS 06/29/2015 normal EGD W/O BRSH SPEC VARICIES INJ 05/30/2023 Small hiatal hernia, fundic gland polyp, mild chronic gastritis ENDOMETRIAL BX W/WO ENDOCERVIX BX W/O DILAT SPX 02/18/2012 ESOPHAGOGASTRODUODENOSCOPY TRANSORAL DIAGNOSTIC 02/03/2018 EGD INCISION OF EYE, TRABECULECTOMY Right 10/26/2021 LASER SELECTA 2 TRABECULOPLASTY Left 01/08/2020 LASER TRABECULOPLASTY OD (RIGHT EYE) Right 10/26/2021 PAST SURGICAL HISTORY OF Bilateral trigger finger release PAST SURGICAL HISTORY OF Left laser surgery to repair capsular rupture REMV CATARACT EXTRACAP,INSERT LENS Right 06/25/2022 REMV CATARACT EXTRACAP,INSERT LENS Left 11/15/2022 PEIOL OS and bleb revision (bleb reduction) x 11/15/2022- Dr. Cynthia Ramos M.D. S BALLOON,UTERINE ABLATION [id number] FAMILY HISTORY Problem Relation Age of Onset Heart Father Age 61 Heart Maternal Grandfather Cancer Paternal Grandmother Breast Cancer Maternal Aunt 55 ovarian cancer Heart Son MS Ovarian cancer Maternal Grandmother Glaucoma No Family History Detached Retina No Family History Macular Degen No Family History Blindness No Family History Amblyopia No Family History Social History Tobacco Use Smoking status: Never Smokeless tobacco: Never Vaping Use Vaping status: Never Used Substance Use Topics Alcohol use: No Drug use: No Current Outpatient Medications Medication Sig fluticasone (FLONASE) 50 mcg/actuation nasal spray Use 2 Sprays in each nostril once daily. Rinse mouth after use. gabapentin (NEURONTIN) 100 mg capsule Take 1 capsule by mouth daily at bedtime for 181 days. atorvastatin (LIPITOR) 40 mg tablet Take 1 tablet by mouth once daily. cyclobenzaprine (FLEXERIL) 10 mg tablet Take 1 tablet by mouth two times a day as needed. diphenhydrAMINE (BENADRYL) 25 mg capsule Take 1-2 capsules by mouth at bedtime as needed. lisinopril-hydroCHLOROthiazide (ZESTORETIC) 10-12.5 mg per tablet Take 1 tablet by mouth once daily. meloxicam (MOBIC) 15 mg tablet Take 1 tablet by mouth once daily. traZODone (DESYREL) 50 mg tablet Take 1 tablet by mouth daily at bedtime. cyclobenzaprine (FLEXERIL) 10 mg tablet Take 1 tablet by mouth two times a day as needed. cyanocobalamin, vitamin B-12, (VITAMIN B-12 ORAL) Take by mouth. loratadine (CLARITIN) 10 mg tablet Take 1 tablet by mouth once daily. dextromethorphan-guaiFENesin (MUCINEX DM) 30-600 mg per tablet Take 1 tablet by mouth two times a day. ibuprofen (MOTRIN) 800 mg tablet Take 1 tablet by mouth every 8 hours as needed for pain. Take with food. mometasone (NASONEX) 50 mcg/actuation nasal spray USE 2 SPRAYS NASALLY ONCE DAILY. RINSE MOUTH AFTER USE. keTORolac (ACULAR) 0.5 % ophthalmic solution Use 1 Drop in the left eye four times daily. Use as needed for eye pain L.acid/B.animalis,bifidum/FOS (PROBIOTIC COMPLEX ORAL) Take by mouth. biotin/calcium carbonate (BIOTIN-CALCIUM ORAL) Take by mouth. vitamin B complex (B COMPLEX-VITAMIN B12 ORAL) Take by mouth. (more content not included)...[facility]01-14-2025 History of Present illness Narrative* Destiney Mckeon APRN.HYDROGENATION STILL OPERATOR - 09/15/2024 10:04 AM EST Allie Lynn is a 54 year old female who presents for problem visit review Prempro medication for weight gain, fatigue, low libido. HPI: Patient presents today with questions about HRT and wondering if there is something different to help with issues listed above. She has been on the Prempro for a number of years. Menopause symptoms are well-controlled at this time, states some hot flashes randomly. OB History T0 L3 SAB0 IAB0 Ectopic0 Multiple0 Live Births0 Network Project Manager History LMP: Ablation Age at Menarche: Age at First : Age at Menopause: Network Project Manager History Comments: Sexual Activity: Not Currently; Male Contraception: No contraception data on record 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 Macular degeneration disease bilateral Mitral prolapse per Mitral valve disorders(424.0) Mitral valve stenosis and aortic valve stenosis Myalgia and myositis, unspecified PXE (pseudoxanthoma elasticum) Rheumatic fever 1995 Rheumatic heart disease, unspecified Tubular adenoma of colon Unspecified essential hypertension PAST SURGICAL HISTORY Procedure Laterality Date ARTHROSCOPY KNEE DIAGNOSTIC W/WO SYNOVIAL BX SPX 1995 Arthroscopy, knee AVASTIN (BEVACIZUMAB) 1.25MG INTRAVITREAL INJECTION OD (RIGHT EYE) Right x 5 (03/12/17) DELIVERY ONLY 1988, 1991, 1993 , low cervical-x 3 COLONOSCOPY FLX DX W/COLLJ SPEC WHEN PFRMD 06/22/2019 Colonoscopy COLONOSCOPY SCREENING 05/30/[address] MAXILLOFAC/SINUS 06/29/2015 normal EGD W/O BRSH SPEC VARICIES INJ 05/30/2023 Small hiatal hernia, fundic gland polyp, mild chronic gastritis ENDOMETRIAL BX W/WO ENDOCERVIX BX W/O DILAT SPX 02/18/2012 ESOPHAGOGASTRODUODENOSCOPY TRANSORAL DIAGNOSTIC 02/03/2018 EGD INCISION OF EYE, TRABECULECTOMY Right 10/26/2021 LASER SELECTA 2 TRABECULOPLASTY Left 01/08/2020 LASER TRABECULOPLASTY OD (RIGHT EYE) Right 10/26/2021 PAST SURGICAL HISTORY OF Bilateral trigger finger release PAST SURGICAL HISTORY OF Left laser surgery to repair capsular rupture REMV CATARACT EXTRACAP,INSERT LENS Right 06/25/2022 REMV CATARACT EXTRACAP,INSERT LENS Left 11/15/2022 PEIOL OS and bleb revision (bleb reduction) x 11/15/2022- Dr. Cynthia Ramos M.D. S BALLOON,UTERINE ABLATION [id number] FAMILY HISTORY Problem Relation Age of Onset Heart Father Age 61 Heart Maternal Grandfather Cancer Paternal Grandmother Breast Cancer Maternal Aunt 55 ovarian cancer Heart Son MS Ovarian cancer Maternal Grandmother Glaucoma No Family History Detached Retina No Family History Macular Degen No Family History Blindness No Family History Amblyopia No Family History Social History Tobacco Use Smoking status: Never Smokeless tobacco: Never Vaping Use Vaping status: Never Used Substance Use Topics Alcohol use: No Drug use: No Current Outpatient Medications Medication Sig fluticasone (FLONASE) 50 mcg/actuation nasal spray Use 2 Sprays in each nostril once daily. Rinse mouth after use. gabapentin (NEURONTIN) 100 mg capsule Take 1 capsule by mouth daily at bedtime for 181 days. atorvastatin (LIPITOR) 40 mg tablet Take 1 tablet by mouth once daily. cyclobenzaprine (FLEXERIL) 10 mg tablet Take 1 tablet by mouth two times a day as needed. diphenhydrAMINE (BENADRYL) 25 mg capsule Take 1-2 capsules by mouth at bedtime as needed. lisinopril-hydroCHLOROthiazide (ZESTORETIC) 10-12.5 mg per tablet Take 1 tablet by mouth once daily. meloxicam (MOBIC) 15 mg tablet Take 1 tablet by mouth once daily. traZODone (DESYREL) 50 mg tablet Take 1 tablet by mouth daily at bedtime. cyclobenzaprine (FLEXERIL) 10 mg tablet Take 1 tablet by mouth two times a day as needed. cyanocobalamin, vitamin B-12, (VITAMIN B-12 ORAL) Take by mouth. loratadine (CLARITIN) 10 mg tablet Take 1 tablet by mouth once daily. dextromethorphan-guaiFENesin (MUCINEX DM) 30-600 mg per tablet Take 1 tablet by mouth two times a day. ibuprofen (MOTRIN) 800 mg tablet Take 1 tablet by mouth every 8 hours as needed for pain. Take withfood. mometasone (NASONEX) 50 mcg/actuation nasal spray USE 2 SPRAYS NASALLY ONCE DAILY. RINSE MOUTH AFTER USE. keTORolac (ACULAR) 0.5 % ophthalmic solution Use 1 Drop in the left eye four times daily. Use as needed for eye pain L.acid/B.animalis,bifidum/FOS (PROBIOTIC COMPLEX ORAL) Take by mouth. biotin/calcium carbonate (BIOTIN-CALCIUM ORAL) Take by mouth. vitamin B complex (B COMPLEX-VITAMIN B12 ORAL) Take by mouth. aspirin, enteric coated (ASPIR-LOW) 81 mg EC tablet Take 1 tablet by mouth once daily. estradiol (VIVELLE-DOT) 0.1 mg/24 hr patch Apply 1 Patch as directed two times a week. TWICE WEEKLY progesterone micronized (PROMETRIUM) 100 mg capsule Take 1 capsule by mouth daily at bedtime. omeprazole (PRILOSEC) 20 mg capsule Take 1 capsule by mouth once daily. No current facility-administered medications for this visit. Allergies As of Date: 09/15/2024 Allergen Noted Reaction ULTRAM [TRAMADOL HCL] 03/12/2006 Vomiting DARVOCET A500 [PROPOXYPHENE N-GABRIEL*04/28/2012 Mental Status Change HYDROCODONE BITARTRATE 10/19/2017 Itching NITROFURANTOIN 03/05/2020 Other: See Comments OPIOIDS - MORPHINE ANALOGUES 03/05/2020 Itching PROPOXYPHENE 03/05/2020 Other: See Comments TRAMADOL 03/05/2020 Other: See Comments VICODIN [HYDROCODONE-ACETAMINOPHE*04/28/2012 Itching Fully Assessed 09/15/2024 REVIEW OF SYSTEMS Expanded ROS: N/A Allergies and current medication updated:Yes SENSITIVE EXAM: Sensitive exam not performed. EXAM: BP 118/66 Wt 158 lb (71.7kg) GENERAL: pleasant, female in no apparent distress HEENT: Normocephalic, atraumatic, mucus membranes moist, and no lesions CHEST: Normal inspiratory effort NEURO: alert and oriented x3,exam grossly non-focal EXTREMITIES: normal ASSESSMENT/PLAN: 1. Vasomotor symptoms due to menopause - ICD9: 627.2, ICD10: N95.1 - Prometrium 100 mg at bedtime - ESTRADIOL 0.1 MG/24 HR SEMIWEEKLY TRANSDERMAL PATCH -DC prempro Follow up as needed Destiney Mckeon APRN.CNP Medical Decision Making: Problems: Low: Acute, uncomplicated illness or injury Risk: Moderate: Drug management Medical Decision Making Level: 3 - Low documented in this encounterFire[facility]01-07-2025 Telephone encounter Note * Telephone Encounter - Nikkie Awad - 09/08/2024 10:03 AM EST Allie is calling Ifeoma Davis MD today with concern regarding Refill Request Patient calling and states that her mail order pharmacy called and told her that she needs refills on just about all of her medications. 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 PHARMACY: [facility]. Patient is asking for Flonase right away and be sent to [facility]. Patient has been identified by name and birthdate. Duration of symptoms: N/A Person calling: self Call patient at: on cell [phone] (home) [phone] (cell) Was an appointment scheduled: No Closing statement: Results or non-symptom based questions: Thank you for calling [facility], your call will be returned within the next business day. Nikkie Awad [facility]01-07-2025 Miscellaneous Notes* Telephone Encounter - Nikkie Awad - 09/08/2024 10:03 AM EST Allie is calling Ifeoma Davis MD today with concern regarding Refill Request Patient calling and states that her mail order pharmacy called and told her that she needs refills on just about all of her medications. 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 PHARMACY: [facility]. Patient is asking for Flonase right away and be sent to [facility]. Patient has been identified by name and birthdate. Duration of symptoms: N/A Person calling: self Call patient at: on cell [phone] (home) [phone] (cell) Was an appointment scheduled: No Closing statement: Results or non-symptom based questions: Thank you for calling [facility], your call will be returned within the next business day. Nikkie Awad documented in this encounterFirelands [facility] Medical Center12-12-2024 Telephone encounter Note * Telephone Encounter - David Anna APRN.CNP - 08/13/2024 7:09 AM EST She has an upcoming appointment with Dr. Davis next week. Have her take a few blood pressures different days after sitting to rest for a good 5 minutes and can bring readings to appointment to reviewwith her. Thank you David Anna APRN.CNP [facility]12-12-2024 Miscellaneous Notes* Telephone Encounter - David Anna APRN.CNP - 08/13/2024 7:09 AM EST She has an upcoming appointment with Dr. Davis next week. Have her take a few blood pressures different days after sitting to rest for a good 5 minutes and can bring readings to appointment to reviewwith her. Thank you David Anna APRN.CNP * Telephone Encounter - Virginia Lorenz MA - 08/12/2024 2:30 PM EST Spoke with patient regarding below. After reviewing, it looks like patient was called on 08/10 by Patient Outreach and patient outreach MA instructed patient to call in readings. See 08/10/24 patient outreach. Virginia Lorenz MA * Telephone Encounter - Tori Morales MA - 08/12/2024 2:09 PM EST Left message for return call. * Telephone Encounter - David Anna APRN.CNP - 08/12/2024 1:30 PM EST That is higher then we would like to see. I do not see anything in the chart instructing her to do so. What is going on that she was asked to do this and by whom? Thank you David Anna APRN.CNP * Telephone Encounter - Emily Prieto LPN - 08/12/2024 11:17 AM EST Patient calling, states she was instructed to call in with 3 separate BP readings today. 9:17am BP 155/82 HR 89 10:25am BP 146/88 HR 91 11:12am BP 158/88 HR 102 documented in this encounterFirelands [facility] Medical Center12-11-2024 Telephone encounter Note * Telephone Encounter - Virginia Lorenz MA - 08/12/2024 2:30 PM EST Spoke with patient regarding below. After reviewing, it looks like patient was called on 08/10 by Patient Outreach and patient outreach MA instructed patient to call in readings. See 08/10/24 patient outreach. Virginia Lorenz MA [facility]12-11-2024 Telephone encounter Note* Telephone Encounter - Tori Morales MA - 08/12/2024 2:09 PM EST Left message for return call. [facility]12-11-[facility] Telephone encounter Note* Telephone Encounter - David Anna APRN.CNP - 08/12/2024 1:30 PM EST That is higher then we would like to see. I do not see anything in the chart instructing her to do so. What is going on that she was asked to do this and by whom? Thank you David Anna APRN.HYDROGENATION STILL OPERATOR [facility]12-11-2024 Telephone encounter Note* Telephone Encounter - Emily Prieto LPN - 08/12/2024 11:17 AM EST Patient calling, states she was instructed to call in with 3 separate BP readings today. 9:17am BP 155/82 HR 89 10:25am BP 146/88 HR 91 11:12am BP 158/88 HR 102 [facility]12-09-2024 NoteHNO ID: [id number] Author: JON ROSS MA Service: ? Author Type: Retail Attendant Type: Progress Notes Filed: 08/10/2024 11:30 Note Text: POPULATION HEALTH NAVIGATION OUTREACH Action/FYI Patient is on [facility] Workbench list for below and needs appointment to address: Depression Screening Anxiety Screening BP Controlled (<130/80) DTaP,Tdap,Td Vaccine(1 - Tdap) Hepatitis B Vaccine(1 of 3 - 19+ 3-dose series) Shingrix Vaccine(1 of 2) Influenza Vaccine(1) Covid-19 Vaccine( season) Mammogram Screening Hemoglobin A1C (%) Date Value 05/03/2022 5.3 Patient due for: Breast Cancer Screening Controlling Blood Pressure Flu Vaccine MyChart Active: Yes Spoke to patient will check BP and call back with readings tomorrow. Mammogram already completed for 2023, patient declined to schedule for 2024 as she has to go catch a bus. HTN Focus [facility] added to notes [facility] 09/2024 Previously declined influenza, didn't discuss Reason for Outreach Care Gap/HCC or Scheduling Wellness Visits Care Gaps due: Breast Cancer Screening Controlling Blood Pressure Flu Vaccine Patient Contacted: Spoke to patient/parent/or legal guardian Patient identified by name and : Yes Care Gap/HCC/Scheduling Wellness actions taken: Patient declined: Patient requested call back from navigator/ will call navigator back HCC related Navigation Signature: Jon Ross MA August 10, 2024 11:21 [facility]12-09-2024 History of Present illness Narrative* Jon Ross MA - 08/10/2024 11:21 AM EST POPULATION HEALTH NAVIGATION OUTREACH Action/FYI Patient is on [facility] Workbench list for below and needs appointment to address: Depression Screening Anxiety Screening BP Controlled (<130/80) DTaP,Tdap,Td Vaccine(1 - Tdap) Hepatitis B Vaccine(1 of 3 - 19+ 3-dose series) Shingrix Vaccine(1 of 2) Influenza Vaccine(1) Covid-19 Vaccine() Mammogram Screening Hemoglobin A1C (%) Date Value 05/03/2022 5.3 Patient due for: Breast Cancer Screening Controlling Blood Pressure Flu Vaccine MyChart Active: Yes Spoke to patient will check BP and call back with readings tomorrow. Mammogram already completed for 2023, patient declined to schedule for 2024 as she has to go catch a bus. HTN Focus [facility] added to notes [facility] 09/2024 Previously declined influenza, didn't discuss Reason for Outreach Care Gap/HCC or Scheduling Wellness Visits Care Gaps due: Breast Cancer Screening Controlling Blood Pressure Flu Vaccine Patient Contacted: Spoke to patient/parent/or legal guardian Patient identified by name and : Yes Care Gap/HCC/Scheduling Wellness actions taken: Patient declined: Patient requested call back from navigator/ will call navigator back HCC related Navigation Signature: Jon Ross MA August 10, 2024 11:21 AM documented in this encounterFirelands Regional Medical Center12-09-2024 NotePatient Outreach (NETNAV) ALLIE LYNN ([id number]) 1970 F Date Time Provider Department 08/10/24 JON ROSS During your visit today, we recorded the following information about you: Jon Ross MA 08/10/2024 11:30 AM Addendum POPULATION HEALTH NAVIGATION OUTREACH Action/FYI Patient is on [facility] Workbench list for below and needs appointment to address: Depression Screening Anxiety Screening BP Controlled (<130/80) DTaP,Tdap,Td Vaccine(1 - Tdap) Hepatitis B Vaccine(1 of 3 - 19+ 3-dose series) Shingrix Vaccine(1 of 2) Influenza Vaccine(1) Covid-19 Vaccine( - 2023- season) Mammogram Screening Hemoglobin A1C (%) Date Value 05/03/2022 5.3 Patient due for: Breast Cancer Screening Controlling Blood Pressure Flu Vaccine MyChart Active: Yes Spoke to patient will check BP and call back with readings tomorrow. Mammogram already completed for 2023, patient declined to schedule for 2024 as she has to go catch a bus. HTN Focus [facility] added to notes [facility] 09/2024 Previously declined influenza, didn't discuss Reason for Outreach Care Gap/HCC or Scheduling Wellness Visits Care Gaps due: Breast Cancer Screening Controlling Blood Pressure Flu Vaccine Patient Contacted: Spoke to patient/parent/or legal guardian Patient identified by name and : Yes Care Gap/HCC/Scheduling Wellness actions taken: Patient declined: Patient requested call back from navigator/ will call navigator back HCC related Navigation Signature: Jon Ross MA August 10, 2024 11:21 AM Allergies As of Date: 08/10/2024 Noted Allergy Reaction ULTRAM (TRAMADOL HCL) 03/12/2006 11 - Vomiting DARVOCET A500 (PROPOXYPHENE N-GABRIEL*04/28/2012 1 - Mental Status Change HYDROCODONE BITARTRATE 10/19/2017 9 - Itching NITROFURANTOIN 03/05/2020 14 - Other: See Comments Comments: Loss of conciousness OPIOIDS - MORPHINE ANALOGUES 03/05/2020 9 - Itching PROPOXYPHENE 03/05/2020 14 - Other: See Comments Comments: Hallucinations TRAMADOL 03/05/2020 14 - Other: See Comments Comments: Loss of conciousness VICODIN (HYDROCODONE-ACETAMINOPHE*04/28/2012 9 - Itching Date Reviewed: 07/08/2024 Reviewed by: Leila Willams LPN - Fully Assessed Reason for Visit: Population Health Navigation Outreach [3910] Cmt: [facility] - [place] [facility] Prescriptions as of 08/10/2024 - gabapentin (NEURONTIN) 100 mg capsule Take 1 capsule by mouth daily at bedtime for 181 days. - atorvastatin (LIPITOR) 40 mg tablet Take 1 tablet by mouth once daily. - omeprazole (PRILOSEC) 20 mg capsule Take 1 capsule by mouth once daily. - cyclobenzaprine (FLEXERIL) 10 mg tablet Take 1 tablet by mouth two times a day as needed. - diphenhydrAMINE (BENADRYL) 25 mg capsule Take 1-2 capsules by mouth at bedtime as needed. - lisinopril-hydroCHLOROthiazide (ZESTORETIC) 10-12.5 mg per tablet Take 1 tablet by mouth once daily. - meloxicam (MOBIC) 15 mg tablet Take 1 tablet by mouth once daily. - traZODone (DESYREL) 50 mg tablet Take 1 tablet by mouth daily at bedtime. - conjugated estrogens-medroxyPROGESTERone (PREMPRO) 0.625-2.5 mg per tablet Take 1 tablet by mouth once daily. - cyclobenzaprine (FLEXERIL) 10 mg tablet Take 1 tablet by mouth two times a day as needed. - cyanocobalamin, vitamin B-12, (VITAMIN B-12 ORAL) Take by mouth. - loratadine (CLARITIN) 10 mg tablet Take 1 tablet by mouth once daily. - dextromethorphan-guaiFENesin (MUCINEX DM) 30-600 mg per tablet Take 1 tablet by mouth two times a day. - ibuprofen (MOTRIN) 800 mg tablet Take 1 tablet by mouth every 8 hours as needed for pain. Take with food. - mometasone (NASONEX) 50 mcg/actuation nasal spray USE 2 SPRAYS NASALLY ONCE DAILY. RINSE MOUTH AFTER USE. - keTORolac (ACULAR) 0.5 % ophthalmic solution Use 1 Drop in the left eye four times daily. Use as needed for eye pain - L.acid/B.animalis,bifidum/FOS (PROBIOTIC COMPLEX ORAL) Take by mouth. - biotin/calcium carbonate (BIOTIN-CALCIUM ORAL) Take by mouth. - vitamin B complex (B COMPLEX-VITAMIN B12 ORAL) Take by mouth. - aspirin, enteric coated (ASPIR-LOW) 81 mg EC tablet Take 1 tablet by mouth once daily. 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. [facility] not at this location anymore. However, [employer] and [facility] can come to patients home and set up machine and instruct patient. Patient notified of the above and will contact insurance to inquire if they are in network. Pt willcall back and let us know where to send the order. Virginia Lorenz MA [facility]12-04-2024 Miscellaneous Notes* Telephone Encounter - Virginia Lorenz MA - 08/05/2024 11:08 AM EST Spoke with sleep/neuro nurse here in [place]. [facility] not at this location anymore. However, [facility] and [facility] can come to patients home and set up machine and instruct patient. Patient notified of the above and will contact insurance to inquire if they are in network. Pt willcall back and let us know where to send the order. Virginia Lorenz MA * Telephone Encounter - Spring Peñaloza RN - 08/05/2024 10:32 AM EST Pt called in and reports she wasn't able to get in to sleep medicine until 10/07/24. Pt is wanting toget CPAP machine before then. I told her she would need to call her [employer] and find out the DME they use and call us back. I said it looked like Dr Davis knew about the [facility] to help her to use it as she is legally blind, so she would need to set that up. Pt states she is always so tired, and she doesn't want to wait until October to get it. * Telephone Encounter - Sharifa Landa - 07/29/2024 11:34 AM EST 1st attempt LVM to schedule with sleep medicine * Telephone Encounter - Virginia Lorenz MA - 07/29/2024 11:09 AM EST Allie notified and verbalized understanding. PSS, please contact patient to schedule with Sleep Medicine. Virginia Lorenz MA * Telephone Encounter - Ifeoma Davis MD - 07/28/2024 4:41 PM EST I understand her hesitancy. Because of her limitations I would like her to see sleep medicine as they might consider other methodologies like the inspire or dental appliances. Regards, Ifeoma Davis MD * Telephone Encounter - Virginia Lorenz MA - 07/28/2024 9:37 AM EST Patient notified and verbalized understanding. Patient asking if PCP feels that she would be able to do this herself with her vision. Putting the mask on, etc. Virginia Lorenz MA * Telephone Encounter - Ifeoma Davis MD - 07/27/2024 6:32 PM EST Please let patient know that she mild sleep apnea and she also likely has periodic limb movement disorder. The ideal treatment would be a CPAP machine. If she is willing to try it we will send her a CPAP machine and work with the [facility] to help her to use it. For periodic limb movement disorders we could see if the treatment of sleep apnea would help with that symptom and if it does not we can revisit it in the future. Regards, Ifeoma Davis MD * Telephone Encounter - Virginia Lorenz MA - 07/27/2024 1:05 PM EST Printed from [employer] and placed on PCP desk. Virginia Lorenz MA * Telephone Encounter - David Anna APRN.CNP - 07/27/2024 12:25 PM EST We don't have the results either. Please get results then place on PCP desk to review. Thank you David Anna APRN.DEBORAH * Telephone Encounter - Sarahi Dawkins LPN - 07/27/2024 10:40 AM EST Pt calls to report she had a sleep study done at [facility] and would like the results. Pt reports she cannot access the results. Sarahi Dawkins LPN documented in this encounterFirelands [facility] Medical Center12-04-2024 Telephone encounter Note * Telephone Encounter - Spring Peñaloza RN - 08/05/2024 10:32 AM EST Pt called in and reports she wasn't able to get in to sleep medicine until 10/07/24. Pt is wanting toget CPAP machine before then. I told her she would need to call her [employer] company and find out the DME they use and call us back. I said it looked like Dr Davis knew about the [facility] to help her to use it as she is legally blind, so she would need to set that up. Pt states she is always so tired, and she doesn't want to wait until October to get it. [facility]11-27-2024 Telephone encounter Note* Telephone Encounter - Sharifa Landa - 07/29/2024 11:34 AM EST 1st attempt LVM to schedule with sleep medicine [place] [address]-27-2024 Telephone encounter Note* Telephone Encounter - Virginia Lorenz MA - 07/29/2024 11:09 AM EST Allie notified and verbalized understanding. PSS, please contact patient to schedule with Sleep Medicine. Virginia Lorenz MA [facility]11-26-2024 Telephone encounter Note* Telephone Encounter - Ifeoma Davis MD - 07/28/2024 4:41 PM EST I understand her hesitancy. Because of her limitations I would like her to see sleep medicine as they might consider other methodologies like the inspire or dental appliances. Regards, Ifeoma Davis MD [facility]11-26-2024 Telephone encounter Note* Telephone Encounter - Virginia Lorenz MA - 07/28/2024 9:37 AM EST Patient notified and verbalized understanding. Patient asking if PCP feels that she would be able to do this herself with her vision. Putting the mask on, etc. Virginia Lorenz MA [facility]11-25-2024 Telephone encounter Note* Telephone Encounter - Ifeoma Davis MD - 07/27/2024 6:32 PM EST Please let patient know that she mild sleep apnea and she also likely has periodic limb movement disorder. The ideal treatment would be a CPAP machine. If she is willing to try it we will send her a CPAP machine and work with the [facility] clinic to help her to use it. For periodic limb movement disorders we could see if the treatment of sleep apnea would help with that symptom and if it does not we can revisit it in the future. Regards, Ifeoma Davis MD [facility]11-25-2024 Telephone encounter Note* Telephone Encounter - Virginia Lorenz MA - 07/27/2024 1:05 PM EST Printed from [employer] [facility] and placed on PCP desk. Virginia Lorenz MA [facility]11-25-2024 Telephone encounter Note* Telephone Encounter - David Anna APRN.DEBORAH - 07/27/2024 12:25 PM EST We don't have the results either. Please get results then place on PCP desk to review. Thank you David Anna APRN.DEBORAH [facility]11-25-2024 Telephone encounter Note* Telephone Encounter - Sarahi Dawkins LPN - 07/27/2024 10:40 AM EST Pt calls to report she had a sleep study done at [facility] and would like the results. Pt reports she cannot access the results. Sarahi Dawkins LPN [facility]11-08-2024 Telephone encounter Note* Telephone Encounter - Angelica Arreola RN - 07/10/2024 9:15 AM EST [facility] Central Scheduling calling and states they have received a non-signed sleep study order for mutual patient. Requesting a signed order. Signed order faxed to [phone] as requested. Angelica Arreola RN [facility]11-08-2024 Miscellaneous Notes* Telephone Encounter - Angelica Arreola RN - 07/10/2024 9:15 AM EST [facility] Central Scheduling calling and states they have received a non-signed sleep study order for mutual patient. Requesting a signed order. Signed order faxed to [phone] as requested. Angelica Arreola RN documented in this encounterFirelands Regional Medical Center11-07-2024 Telephone encounter Note * Telephone Encounter - Janet Meza LPN - 07/09/2024 2:11 PM EST Called and spoke to patient would prefer [facility] d/t legally blind. Faxed order and facesheet to [facility] sleep study Janet Meza LPN July 09, 2024 2:18 PM [facility]11-07-2024 Miscellaneous Notes* Telephone Encounter - Janet Meza LPN - 07/09/2024 2:11 PM EST Called and spoke to patient would prefer [facility] d/t legally blind. Faxed order and facesheet to [facility] sleep study Janet Meza LPN July 09, 2024 2:18 PM * Telephone Encounter - Ifeoma Davis MD - 07/09/2024 1:27 PM EST Staff, Please co ordinate with her to get her sleep study done in the sleep lab. [place] may be easier forher. Regards, Ifeoma Davis MD * Telephone Encounter - Angelica Arreola RN - 07/08/2024 11:07 AM EST Patient returned call. Patient states yes, she is willing to do an in house test. States she is willing to do whatever Dr. Davis thinks is best. Please call patient with response or any new test orders. Angelica Arreola RN * Telephone Encounter - Clint Brennan RN - 07/08/2024 9:52 AM EST Phoned pt. No answer. No voicemail. * Telephone Encounter - Ifeoma Davis MD - 07/07/2024 5:13 PM EST Would she be willing for an inhouse test? Due to her blindness? Regards, Ifeoma Davis MD * Telephone Encounter - Myra Isidro - 07/07/2024 9:51 AM EST Allie is calling Ifeoma Davis MD today to request a in home sleep study order to be placed, patienthad last sleep study over 20 years ago and feels the need to have one again due to loss of vision and inability to feel rested when patient awakens. Patient mentions the quality of life is important and would like to continue with daily walks and tasks. Please call patient to advise the order is in and assist with next step in this process. Patient has been identified by name and birthdate. Duration of symptoms: ongoing Person calling: self Call patient at: at home [phone] (home) [phone] (cell) Was an appointment scheduled: No Closing statement: Results or non-symptom based questions: Thank you for calling [facility], your call will be returned within the next business day. Myra Loftonc documented in this encounterFirelands Regional Medical Center11-07-2024 Telephone encounter Note * Telephone Encounter - Ifeoma Davis MD - 07/09/2024 1:27 PM EST Staff, Please co ordinate with her to get her sleep study done in the sleep lab. [place] may be easier forher. Regards, Ifeoma Davis MD [facility]11-07-2024 Telephone encounter Note* Telephone Encounter - Judith Pena LPN - 07/09/2024 7:30 AM EST Patient given results and verbalized understanding of instructions given. Judith Pena LPN [facility]11-07-2024 Miscellaneous Notes* Telephone Encounter - Judith Pena LPN - 07/09/2024 7:30 AM EST Patient given results and verbalized understanding of instructions given. Judith Pean LPN * Telephone Encounter - Adriana Vidal APRN.CNP - 07/09/2024 7:16 AM EST Please notify that covid/flu/rsv testing negative. Continue with plan of care as discussed during visit. documented in this [facility] Telephone encounter Note * Telephone Encounter - Adriana Vidal APRN.CNP - 07/09/2024 7:16 AM EST Please notify that covid/flu/rsv testing negative. Continue with plan of care as discussed during visit. [facility] Work Phone: 1(297) 709-913611-06-2024 NoteHNO ID: [id number] Author: LOWELL KELLY APRN.DEBORAH Service: ? Author Type: Nurse Practitioner Type: Progress Notes Filed: 07/08/2024 17:47 Note Text: CC: Patient presents with: Headache: TIN[place]O, bodyaches, fatigue x 3 days HPI: Allie Lynn is a 54 year old female who presents to the office with complaint of fatigue for a few days. Symptoms are staying the same. Associated symptoms includes headache, body aches, and fatigue. Denies nausea, vomiting , and diarrhea. Treatments tried include nothing so far. with no relief of symptoms. Sick contacts: unknown. History of asthma, frequent episodes of bronchitis, chronic bronchitis, bronchiectasis or COPD: No Smoker: No Seasonal/environmental allergies: No The ROS is otherwise negative. The patient's pmh, medications, allergies, and past visits are reviewed. PHYSICAL EXAM: BP 128/82 Pulse 109 Temp 36.9 ?C (98.4 ?F) (Tympanic) Resp 18 Wt 69.3 kg (152 lb 12.5 oz) SpO2 97% BMI 28.87 kg/m? General appearance: alert, cooperative, pleasant, in no acute distress Head: Normocephalic Eyes: EOM's intact, conjunctiva pink and moist, no icterus, sclera white, non-injected Ears: Right ear: External ear/canal- Normal, TM - clear with good landmarks. Left ear: External ear/canal- Normal, TM - clear with good landmarks Oropharynx:moist without lesions, No erythema, exudates or tonsillar hypertrophy. Uvula midline Heart: Negative. RRR without obvious murmur, gallop, or rubs. No ectopy. Lungs: clear to auscultation, without rales or wheeze, good air exchange 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 Macular degeneration disease bilateral Mitral prolapse per Mitral valve disorders(424.0) Mitral valve stenosis and aortic valve stenosis Myalgia and myositis, unspecified PXE (pseudoxanthoma elasticum) Rheumatic fever 1995 Rheumatic heart disease, unspecified Tubular adenoma of colon Unspecified essential hypertension PAST SURGICAL HISTORY Procedure Laterality Date ARTHROSCOPY KNEE DIAGNOSTIC W/WO SYNOVIAL BX SPX 1995 Arthroscopy, knee AVASTIN (BEVACIZUMAB) 1.25MG INTRAVITREAL INJECTION OD (RIGHT EYE) Right x 5 (03/12/17) DELIVERY ONLY 1988, 1991, 1993 , low cervical-x 3 COLONOSCOPY FLX DX W/COLLJ SPEC WHEN PFRMD 06/22/2019 Colonoscopy COLONOSCOPY SCREENING 05/30/[address] MAXILLOFAC/SINUS 06/29/2015 normal EGD W/O BRSH SPEC VARICIES INJ 05/30/2023 Small hiatal hernia, fundic gland polyp, mild chronic gastritis ENDOMETRIAL BX W/WO ENDOCERVIX BX W/O DILAT SPX 02/18/2012 ESOPHAGOGASTRODUODENOSCOPY TRANSORAL DIAGNOSTIC 02/03/2018 EGD INCISION OF EYE, TRABECULECTOMY Right 10/26/2021 LASER SELECTA 2 TRABECULOPLASTY Left 01/08/2020 LASER TRABECULOPLASTY OD (RIGHT EYE) Right 10/26/2021 PAST SURGICAL HISTORY OF Bilateral trigger finger release PAST SURGICAL HISTORY OF Left laser surgery to repair capsular rupture REMV CATARACT EXTRACAP,INSERT LENS Right 06/25/2022 REMV CATARACT EXTRACAP,INSERT LENS Left 11/15/2022 PEIOL OS and bleb revision (bleb reduction) x 11/15/2022- Dr. Cynthia Ramos M.D. S BALLOON,UTERINE ABLATION 09940 ALLERGIES Ultram [Tramadol Hcl], Darvocet A500 [Propoxyphene N-Acetaminophen], Hydrocodone Bitartrate, Nitrofurantoin, Opioids - Morphine Analogues, Propoxyphene, Tramadol, and Vicodin [Hydrocodone-Acetaminophen] MEDICATIONS gabapentin (NEURONTIN) 100 mg capsule Take 1 capsule by mouth daily at bedtime for 181 days. atorvastatin (LIPITOR) 40 mg tablet Take 1 tablet by mouth once daily. omeprazole (PRILOSEC) 20 mg capsule Take 1 capsule by mouth once daily. cyclobenzaprine (FLEXERIL) 10 mg tablet Take 1 tablet by mouth two times a day as needed. diphenhydrAMINE (BENADRYL) 25 mg capsule Take 1-2 capsules by mouth at bedtime as needed. lisinopril-hydroCHLOROthiazide (ZESTORETIC) 10-12.5 mg per tablet Take 1 tablet by mouth once daily. meloxicam (MOBIC) 15 mg tablet Take 1 tablet by mouth once daily. traZODone (DESYREL) 50 mg tablet Take 1 tablet by mouth daily at bedtime. cyclobenzaprine (FLEXERIL) 10 mg tablet Take 1 tablet by mouth two times a day as needed. cyanocobalamin, vitamin B-12, (VITAMIN B-12 ORAL) Take by mouth. loratadine (CLARITIN) 10 mg tablet Take 1 tablet by mouth once daily. dextromethorphan-guaiFENesin (MUCINEX DM) 30-600 mg per tablet Take 1 tablet by mouth two times a day. ibuprofen (MOTRIN) 800 mg tablet Take 1 tablet by mouth every 8 hours as needed for pain. Take with food. mometasone (NASONEX) 50 mcg/actuation nasal spray USE 2 SPRAYS NASALLY ONCE DAILY. RINSE MOUTH AFTER USE. keTORolac (ACULAR) 0.5 % ophthal (more content not included)...[facility]11-06-2024 History of Present illness Narrative* Lwoell Kelly APRN.[facility] - 07/08/2024 5:44 PM EST CC: Patient presents with: Headache: TINOCO, bodyaches, fatigue x 3 days HPI: Allie Lynn is a 54 year old female who presents to the office with complaint of fatigue for a few days. Symptoms are staying the same. Associated symptoms includes headache, body aches, and fatigue. Denies nausea, vomiting , and diarrhea. Treatments tried include nothing so far. with no relief of symptoms. Sick contacts: unknown. History of asthma, frequent episodes of bronchitis, chronic bronchitis, bronchiectasis or COPD: No Smoker: No Seasonal/environmental allergies: No The ROS is otherwise negative. The patient's pmh, medications, allergies, and past visits are reviewed. PHYSICAL EXAM: BP 128/82 Pulse 109 Temp 36.9 C (98.4 F) (Tympanic) Resp 18 Wt 69.3 kg (152 lb 12.5 oz) SpO2 97% BMI 28.87 kg/m General appearance: alert, cooperative, pleasant, in no acute distress Head: Normocephalic Eyes: EOM's intact, conjunctiva pink and moist, no icterus, sclera white, non-injected Ears: Right ear: External ear/canal- Normal, TM - clear with good landmarks. Left ear: External ear/canal- Normal, TM - clear with good landmarks Oropharynx:moist without lesions, No erythema, exudates or tonsillar hypertrophy. Uvula midline Heart: Negative. RRR without obvious murmur, gallop, or rubs. No ectopy. Lungs: clear to auscultation, without rales or wheeze, good air exchange 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 Macular degeneration disease bilateral Mitral prolapse per Mitral valve disorders(424.0) Mitral valve stenosis and aortic valve stenosis Myalgia and myositis, unspecified PXE (pseudoxanthoma elasticum) Rheumatic fever 1995 Rheumatic heart disease, unspecified Tubular adenoma of colon Unspecified essential hypertension PAST SURGICAL HISTORY Procedure Laterality Date ARTHROSCOPY KNEE DIAGNOSTIC W/WO SYNOVIAL BX SPX 1995 Arthroscopy, knee AVASTIN (BEVACIZUMAB) 1.25MG INTRAVITREAL INJECTION OD (RIGHT EYE) Right x 5 (03/12/17) DELIVERY ONLY 1988, 1991, 1993 , low cervical-x 3 COLONOSCOPY FLX DX W/COLLJ SPEC WHEN PFRMD 06/22/2019 Colonoscopy COLONOSCOPY SCREENING 05/30/[address] MAXILLOFAC/SINUS 06/29/2015 normal EGD W/O BRSH SPEC VARICIES INJ 05/30/2023 Small hiatal hernia, fundic gland polyp, mild chronic gastritis ENDOMETRIAL BX W/WO ENDOCERVIX BX W/O DILAT SPX 02/18/2012 ESOPHAGOGASTRODUODENOSCOPY TRANSORAL DIAGNOSTIC 02/03/2018 EGD INCISION OF EYE, TRABECULECTOMY Right 10/26/2021 LASER SELECTA 2 TRABECULOPLASTY Left 01/08/2020 LASER TRABECULOPLASTY OD (RIGHT EYE) Right 10/26/2021 PAST SURGICAL HISTORY OF Bilateral trigger finger release PAST SURGICAL HISTORY OF Left laser surgery to repair capsular rupture REMV CATARACT EXTRACAP,INSERT LENS Right 06/25/2022 REMV CATARACT EXTRACAP,INSERT LENS Left 11/15/2022 PEIOL OS and bleb revision (bleb reduction) x 11/15/2022- Dr. Cynthia Ramos M.D. S BALLOON,UTERINE ABLATION [id number] ALLERGIES Ultram [Tramadol Hcl], Darvocet A500 [Propoxyphene N-Acetaminophen], Hydrocodone Bitartrate, Nitrofurantoin, Opioids - Morphine Analogues, Propoxyphene, Tramadol, and Vicodin [Hydrocodone-Acetaminophen] MEDICATIONS gabapentin (NEURONTIN) 100 mg capsule Take 1 capsule by mouth daily at bedtime for 181 days. atorvastatin (LIPITOR) 40 mg tablet Take 1 tablet by mouth once daily. omeprazole (PRILOSEC) 20 mg capsule Take 1 capsule by mouth once daily. cyclobenzaprine (FLEXERIL) 10 mg tablet Take 1 tablet by mouth two times a day as needed. diphenhydrAMINE (BENADRYL) 25 mg capsule Take 1-2 capsules by mouth at bedtime as needed. lisinopril-hydroCHLOROthiazide (ZESTORETIC) 10-12.5 mg per tablet Take 1 tablet by mouth once daily. meloxicam (MOBIC) 15 mg tablet Take 1 tablet by mouth once daily. traZODone (DESYREL) 50 mg tablet Take 1 tablet by mouth daily at bedtime. cyclobenzaprine (FLEXERIL) 10 mg tablet Take 1 tablet by mouth two times a day as needed. cyanocobalamin, vitamin B-12, (VITAMIN B-12 ORAL) Take by mouth. loratadine (CLARITIN) 10 mg tablet Take 1 tablet by mouth once daily. dextromethorphan-guaiFENesin (MUCINEX DM) 30-600 mg per tablet Take 1 tablet by mouth two times a day. ibuprofen (MOTRIN) 800 mg tablet Take 1 tablet by mouth every 8 hours as needed for pain. Take withfood. mometasone (NASONEX) 50 mcg/actuation nasal spray USE 2 SPRAYS NASALLY ONCE DAILY. RINSE MOUTH AFTER USE. keTORolac (ACULAR) 0.5 % ophthalmic solution Use 1 Drop in the left eye four times daily. Use as needed for eye pain L.acid/B.animalis,bifidum/FOS (PROBIOTIC COMPLEX ORAL) Take by mouth. biotin/calcium carbonate (BIOTIN-CALCIUM ORAL) Take by mouth. vitamin B complex (B COMPLEX-VITAMIN B12 ORAL) Take by mouth. aspirin, enteric coated (ASPIR-LOW) 81 mg EC tablet Take 1 tablet by mouth once daily. conjugated estrogens-medroxyPROGESTERone (PREMPRO) 0.625-2.5 mg per tablet Take 1 tablet by mouth once daily. FAMILY HISTORY Problem Relation Age of Onset Heart Father Age 61 Heart Maternal Grandfather Cancer Paternal Grandmother Breast Cancer Maternal Aunt 55 ovarian cancer Heart Son MS Ovarian cancer Maternal Grandmother Glaucoma No Family History Detached Retina No Family History Macular Degen No Family History Blindness No Family History Amblyopia No Family History Social History Tobacco Use Smoking status: Never Smokeless tobacco: Never Vaping Use Vaping status: Never Used Substance Use Topics Alcohol use: No Drug use: No ASSESSMENT/PLAN: 1. Close exposure to COVID-19 virus - ICD9: V01.79, ICD10: Z20.822 - COVID & INFLUENZA A/B & RSV PCR, ROUTINE Supportive care at this time. Potential red flag symptoms discussed with the patient. Reviewed appropriate action plan to take ifred flag symptoms occur. Patient agreeable to treatment plan. Lowell Kelly APRN.HYDROGENATION STILL OPERATOR documented in this encounterFire[facility]11-[facility]24 Telephone encounter Note * Telephone Encounter - Angelica Arreola RN - 07/08/2024 11:07 AM EST Patient returned call. Patient states yes, she is willing to do an in house test. States she is willing to do whatever Dr. Davis thinks is best. Please call patient with response or any new test orders. Angelica Arreola RN [facility]11-06-2024 Telephone encounter Note* Telephone Encounter - Clint Brennan RN - 07/08/2024 9:52 AM EST Phoned pt. No answer. No voicemail. [facility]11-05-2024 Telephone encounter Note* Telephone Encounter - Ifeoma Davis MD - 07/07/2024 5:13 PM EST Would she be willing for an inhouse test? Due to her blindness? Regards, Ifeoma Davis MD [facility]11-05-2024 Telephone encounter Note* Telephone Encounter - Myra Isidro - 07/07/2024 9:51 AM EST Allie is calling Ifeoma Davis MD today to request a in home sleep study order to be placed, patienthad last sleep study over 20 years ago and feels the need to have one again due to loss of vision and inability to feel rested when patient awakens. Patient mentions the quality of life is important and would like to continue with daily walks and tasks. Please call patient to advise the order is in and assist with next step in this process. Patient has been identified by name and birthdate. Duration of symptoms: ongoing Person calling: self Call patient at: at home [phone] (home) [phone] (cell) Was an appointment scheduled: No Closing statement: Results or non-symptom based questions: Thank you for calling [facility], your call will be returned within the next business day. Myra Mathur [facility]11-05-2024 Telephone encounter Note* Telephone Encounter - Myra Isidro - 07/07/2024 9:49 AM EST Prescription Refill Information The patient has been identified by name and date of : Yes Caregiver verified no other encounters exist for this prescription request: Yes Caregiver confirmed with patient/requestor that no other refills are due, in the near future, with this provider at this time: Yes The last office visit in the department: 03/31/2024 Does the patient have a future office visit with this provider/department: Yes Requested Prescriptions Pending Prescriptions Disp Refills gabapentin (NEURONTIN) 100 mg capsule 90 capsule 1 Sig: Take 1 capsule by mouth daily at bedtime for 181 days. Myra Mathur July 07, 2024 9:49 AM [facility]11-05-2024 Miscellaneous Notes* Telephone Encounter - Myra Isidro - 07/07/2024 9:49 AM EST Prescription Refill Information The patient has been identified by name and date of : Yes Caregiver verified no other encounters exist for this prescription request: Yes Caregiver confirmed with patient/requestor that no other refills are due, in the near future, with this provider at this time: Yes The last office visit in the department: 03/31/2024 Does the patient have a future office visit with this provider/department: Yes Requested Prescriptions Pending Prescriptions Disp Refills gabapentin (NEURONTIN) 100 mg capsule 90 capsule 1 Sig: Take 1 capsule by mouth daily at bedtime for 181 days. Myra Mathur July 07, 2024 9:49 AM documented in this encounterFirelands [facility] Center10-28-2024 Telephone encounter Note * Telephone Encounter - Sarahi Dawkins LPN - 06/29/2024 10:12 AM EDT Prescription Refill Information The patient has been identified by name and date of : Yes Caregiver verified no other encounters exist for this prescription request: Yes Caregiver confirmed with patient/requestor that no other refills are due, in the near future, with this provider at this time: Yes The last office visit in the department: 03/31/24 Does the patient have a future office visit with this provider/department: Yes 09/29/24 Requested Prescriptions Pending Prescriptions Disp Refills atorvastatin (LIPITOR) 40 mg tablet 90 tablet 3 Sig: Take 1 tablet by mouth once daily. omeprazole (PRILOSEC) 20 mg capsule 90 capsule 3 Sig: Take 1 capsule by mouth once daily. Sarahi Dawkins LPN June 29, 2024 10:14 AM [facility]10-28-2024 Miscellaneous Notes* Telephone Encounter - Sarahi Dawkins LPN - 06/29/2024 10:12 AM EDT Prescription Refill Information The patient has been identified by name and date of : Yes Caregiver verified no other encounters exist for this prescription request: Yes Caregiver confirmed with patient/requestor that no other refills are due, in the near future, with this provider at this time: Yes The last office visit in the department: 03/31/24 Does the patient have a future office visit with this provider/department: Yes 09/29/24 Requested Prescriptions Pending Prescriptions Disp Refills atorvastatin (LIPITOR) 40 mg tablet 90 tablet 3 Sig: Take 1 tablet by mouth once daily. omeprazole (PRILOSEC) 20 mg capsule 90 capsule 3 Sig: Take 1 capsule by mouth once daily. Sarahi Dawkins LPN June 29, 2024 10:14 AM documented in this encounterFirelands Regional Medical Center10-14-2024 NoteHNO ID: [id number] Author: CHANA BRIDGES MA Service: ? Author Type: Retail Attendant Type: Progress Notes Filed: 06/15/2024 16:13 Note Text: POPULATION HEALTH NAVIGATION OUTREACH Action/FYI Med Adherence Atorvastatin: Last fill 03/04/24; 90 days - 0 refills Needs new Rx Unable to reach via phone (did not ring); MyChart message sent Reason for Outreach Med Adherence Patient Contacted: Unable or unnecessary to reach patient: Unable to leave message MyChart message sent Navigation Signature: Chana Bridges MA June 15, 2024 3:48 [facility]10-14-2024 History of Present illness Narrative* Chana Bridges MA - 06/15/2024 3:47 PM EDT POPULATION HEALTH NAVIGATION OUTREACH Action/FYI Med Adherence Atorvastatin: Last fill 03/04/24; 90 days - 0 refills Needs new Rx Unable to reach via phone (did not ring); MyChart message sent Reason for Outreach Med Adherence Patient Contacted: Unable or unnecessary to reach patient: Unable to leave message MyChart message sent Navigation Signature: Chana Bridges MA June 15, 2024 3:48 PM documented in this encounterFirelands [facility] Medical Center10-14-2024 NotePatient Outreach (NETNAV) ALLIE LYNN ([id number]) 1970 F [place] Date Time Provider Department 06/15/24 CHANA BRIDGES NETMARBELLA During your visit today, we recorded the following information about you: Chana Bridges MA 06/15/2024 4:13 PM Signed POPULATION HEALTH NAVIGATION OUTREACH Action/ Med Adherence Atorvastatin: Last fill 03/04/24; 90 days - 0 refills Needs new Rx Unable to reach via phone (did not ring); MyChart message sent Reason for Outreach Med Adherence Patient Contacted: Unable or unnecessary to reach patient: Unable to leave message MyChart message sent Navigation Signature: Chana Bridges MA June 15, 2024 3:48 PM Allergies As of Date: 06/15/2024 Noted Allergy Reaction ULTRAM (TRAMADOL HCL) 03/12/2006 11 - Vomiting DARVOCET A500 (PROPOXYPHENE N-GABRIEL*04/28/2012 1 - Mental Status Change HYDROCODONE BITARTRATE 10/19/2017 9 - Itching NITROFURANTOIN 03/05/2020 14 - Other: See Comments Comments: Loss of conciousness OPIOIDS - MORPHINE ANALOGUES 03/05/2020 9 - Itching PROPOXYPHENE 03/05/2020 14 - Other: See Comments Comments: Hallucinations TRAMADOL 03/05/2020 14 - Other: See Comments Comments: Loss of conciousness VICODIN (HYDROCODONE-ACETAMINOPHE*04/28/2012 9 - Itching Date Reviewed: 04/11/2024 Reviewed by: Laura Lepe MA - Fully Assessed Reason for Visit: Population Health Navigation Outreach [3910] Cmt: Med Adherence Prescriptions as of 06/15/2024 - cyclobenzaprine (FLEXERIL) 10 mg tablet Take 1 tablet by mouth two times a day as needed. - diphenhydrAMINE (BENADRYL) 25 mg capsule Take 1-2 capsules by mouth at bedtime as needed. - lisinopril-hydroCHLOROthiazide (ZESTORETIC) 10-12.5 mg per tablet Take 1 tablet by mouth once daily. - meloxicam (MOBIC) 15 mg tablet Take 1 tablet by mouth once daily. - traZODone (DESYREL) 50 mg tablet Take 1 tablet by mouth daily at bedtime. - conjugated estrogens-medroxyPROGESTERone (PREMPRO) 0.625-2.5 mg per tablet Take 1 tablet by mouth once daily. - cyclobenzaprine (FLEXERIL) 10 mg tablet Take 1 tablet by mouth two times a day as needed. - gabapentin (NEURONTIN) 100 mg capsule Take 1 capsule by mouth daily at bedtime for 181 days. - cyanocobalamin, vitamin B-12, (VITAMIN B-12 ORAL) Take by mouth. - loratadine (CLARITIN) 10 mg tablet Take 1 tablet by mouth once daily. - dextromethorphan-guaiFENesin (MUCINEX DM) 30-600 mg per tablet Take 1 tablet by mouth two times a day. - ibuprofen (MOTRIN) 800 mg tablet Take 1 tablet by mouth every 8 hours as needed for pain. Take with food. - mometasone (NASONEX) 50 mcg/actuation nasal spray USE 2 SPRAYS NASALLY ONCE DAILY. RINSE MOUTH AFTER USE. - atorvastatin (LIPITOR) 40 mg tablet Take 1 tablet by mouth once daily. - omeprazole (PRILOSEC) 20 mg capsule Take 1 capsule by mouth once daily. - keTORolac (ACULAR) 0.5 % ophthalmic solution Use 1 Drop in the left eye four times daily. Use as needed for eye pain - L.acid/B.animalis,bifidum/FOS (PROBIOTIC COMPLEX ORAL) Take by mouth. - biotin/calcium carbonate (BIOTIN-CALCIUM ORAL) Take by mouth. - vitamin B complex (B COMPLEX-VITAMIN B12 ORAL) Take by mouth. - aspirin, enteric coated (ASPIR-LOW) 81 mg EC tablet Take 1 tablet by mouth once daily. 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] 04/15/2017 Mixed hyperlipidemia [E78.2] 04/15/2017 BPPV (benign paroxysmal positional vertigo) [H8*04/15/2017 Nausea [R11.0] 01/29/2018 Bilateral upper abdominal pain [R10.11, R10.12] 01/29/2018 Secondary glaucoma, indeterminate stage, 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01] 08/16/2022 Nuclear senile cataract of left eye [H25.12] 11/15/2022 11/15/2022 Primary open angle glaucoma (POAG) of left eye,*11/15/2022 12/29/2022 Encounter Status:Closed by CHANA BRIDGES on 06/15/24[facility] 06-12-2024 NoteHNO ID: [id number] Author: JON ROSS MA Service: ? Author Type: Retail Attendant Type: Progress Notes Filed: 06/12/2024 11:41 Note Text: POPULATION HEALTH NAVIGATION OUTREACH Action/FYI Patient is on [facility] CURRENT [facility]OST[facility] Workbench list for below and needs appointment to address: Depression Screening Anxiety Screening DTaP,Tdap,Td Vaccine(1 - Tdap) Hepatitis B Vaccine(1 of 3 - 19+ 3-dose series) Shingrix Vaccine(1 of 2) Influenza Vaccine(1) Covid-19 Vaccine( - 2023- season) Mammogram Screening Hemoglobin A1C (%) Date Value 05/03/2022 5.3 Patient due for: Breast Cancer Screening Flu Vaccine MyChart Active: Yes Spoke to patient. Scheduled mammogram 06-18-24 in [place] Declined influenza Updated upcoming 2024 OV notes Please address due care gaps and HCC gap closure Reason for Outreach Care Gap/HCC or Scheduling Wellness Visits Care Gaps due: Breast Cancer Screening Flu Vaccine Patient Contacted: Spoke to patient/parent/or legal guardian Patient identified by name and : Yes Care Gap/HCC/Scheduling Wellness actions taken: Patient scheduled/pended orders: Breast Cancer Screening 06/18/2024 in [facility] with SCREEN MAMMO [facility] - Encounter for screening mammogram for malignant neoplasm of breast [Z12.31] 08/18/2024 in [facility] with CYNTHIA RAMOS - DAVID 6 months VaTa and mac OCT 09/29/2024 in [facility] with IFEOMA DAVIS - 6 mo follow up; routine, Please address due care gap and HCC gap closure HCC related Navigation Signature: Jon Ross MA June 12, 2024 9:43 [facility]10-11-2024 History of Present illness Narrative* Jon Ross MA - 06/12/2024 9:43 AM EDT POPULATION HEALTH NAVIGATION OUTREACH Action/FYI Patient is on [facility] CURRENT ROSTER Workbench list for below and needs appointment to address: Depression Screening Anxiety Screening DTaP,Tdap,Td Vaccine(1 - Tdap) Hepatitis B Vaccine(1 of 3 - 19+ 3-dose series) Shingrix Vaccine(1 of 2) Influenza Vaccine(1) Covid-19 Vaccine( - 2023- season) Mammogram Screening Hemoglobin A1C (%) Date Value 05/03/2022 5.3 Patient due for: Breast Cancer Screening Flu Vaccine MyChart Active: Yes Spoke to patient. Scheduled mammogram 06-18-24 in [place] Declined influenza Updated upcoming 2024 OV notes Please address due care gaps and HCC gap closure Reason for Outreach Care Gap/HCC or Scheduling Wellness Visits Care Gaps due: Breast Cancer Screening Flu Vaccine Patient Contacted: Spoke to patient/parent/or legal guardian Patient identified by name and : Yes Care Gap/HCC/Scheduling Wellness actions taken: Patient scheduled/pended orders: Breast Cancer Screening 06/18/2024 in [facility] with [facility] - Encounter for screening mammogram for malignant neoplasm of breast [Z12.31] 08/18/2024 in [facility] with CYNTHIA RAMOS SP 6 months VaTa and mac [facility] IFEOMA DAVIS - 6 mo follow up; routine, Please address due care gap and HCC gap closure HCC related Navigation Signature: Jon Ross MA June 12, 2024 9:43 AM documented in this encounterFirelands [facility] Center10-11-2024 NotePatient Outreach (NETNAV) ALLIE LYNN ([id number]) 1970 F Date Time Provider Department 06/12/24 JON ROSS During your visit today, we recorded the following information about you: Jon Ross MA 06/12/2024 11:41 AM Signed POPULATION HEALTH NAVIGATION OUTREACH Action/FYI Patient is on [facility] CURRENT ROSTER Workbench list for below and needs appointment to address: Depression Screening Anxiety Screening DTaP,Tdap,Td Vaccine(1 - Tdap) Hepatitis B Vaccine(1 of 3 - 19+ 3-dose series) Shingrix Vaccine(1 of 2) Influenza Vaccine(1) Covid-19 Vaccine( - season) Mammogram Screening Hemoglobin A1C (%) Date Value 05/03/2022 5.3 Patient due for: Breast Cancer Screening Flu Vaccine MyChart Active: Yes Spoke to patient. Scheduled mammogram 06-18-24 in [place] Declined influenza Updated upcoming 2024 OV notes Please address due care gaps and HCC gap closure Reason for Outreach Care Gap/HCC or Scheduling Wellness Visits Care Gaps due: Breast Cancer Screening Flu Vaccine Patient Contacted: Spoke to patient/parent/or legal guardian Patient identified by name and : Yes Care Gap/HCC/Scheduling Wellness actions taken: Patient scheduled/pended orders: Breast Cancer Screening 06/18/2024 in [facility] with [facility] - Encounter for screening mammogram for malignant neoplasm of breast [Z12.31] 08/18/2024 in [facility] with CYNTHIA RAMOS - SP 6 months VaTa and mac OCT [facility] IFEOMA DAVIS - 6 mo follow up; routine, Please address due care gap and HCC gap closure HCC related Navigation Signature: Jon Ross MA June 12, 2024 9:43 AM Allergies As of Date: 06/12/2024 Noted Allergy Reaction ULTRAM (TRAMADOL HCL) 03/12/2006 11 - Vomiting DARVOCET A500 (PROPOXYPHENE N-GABRIEL*04/28/2012 1 - Mental Status Change HYDROCODONE BITARTRATE 10/19/2017 9 - Itching NITROFURANTOIN 03/05/2020 14 - Other: See Comments Comments: Loss of conciousness OPIOIDS - MORPHINE ANALOGUES 03/05/2020 9 - Itching PROPOXYPHENE 03/05/2020 14 - Other: See Comments Comments: Hallucinations TRAMADOL 03/05/2020 14 - Other: See Comments Comments: Loss of conciousness VICODIN (HYDROCODONE-ACETAMINOPHE*04/28/2012 9 - Itching Date Reviewed: 04/11/2024 Reviewed by: Laura Lepe MA - Fully Assessed Reason for Visit: Population Health Navigation Outreach [3910] Cmt: Bradly Javier PCSJuli Primary Visit Diagnosis:Encounter for screening mammogram for malignant neoplasm of breast [Z12.31] Order(s):[facility] [[id number]] Order #: [id number] FUTURE Prescriptions as of 06/12/2024 - cyclobenzaprine (FLEXERIL) 10 mg tablet Take 1 tablet by mouth two times a day as needed. - diphenhydrAMINE (BENADRYL) 25 mg capsule Take 1-2 capsules by mouth at bedtime as needed. - lisinopril-hydroCHLOROthiazide (ZESTORETIC) 10-12.5 mg per tablet Take 1 tablet by mouth once daily. - meloxicam (MOBIC) 15 mg tablet Take 1 tablet by mouth once daily. - traZODone (DESYREL) 50 mg tablet Take 1 tablet by mouth daily at bedtime. - conjugated estrogens-medroxyPROGESTERone (PREMPRO) 0.625-2.5 mg per tablet Take 1 tablet by mouth once daily. - cyclobenzaprine (FLEXERIL) 10 mg tablet Take 1 tablet by mouth two times a day as needed. - gabapentin (NEURONTIN) 100 mg capsule Take 1 capsule by mouth daily at bedtime for 181 days. - cyanocobalamin, vitamin B-12, (VITAMIN B-12 ORAL) Take by mouth. - loratadine (CLARITIN) 10 mg tablet Take 1 tablet by mouth once daily. - dextromethorphan-guaiFENesin (MUCINEX DM) 30-600 mg per tablet Take 1 tablet by mouth two times a day. - ibuprofen (MOTRIN) 800 mg tablet Take 1 tablet by mouth every 8 hours as needed for pain. Take with food. - mometasone (NASONEX) 50 mcg/actuation nasal spray USE 2 SPRAYS NASALLY ONCE DAILY. RINSE MOUTH AFTER USE. - atorvastatin (LIPITOR) 40 mg tablet Take 1 tablet by mouth once daily. - omeprazole (PRILOSEC) 20 mg capsule Take 1 capsule by mouth once daily. - keTORolac (ACULAR) 0.5 % ophthalmic solution Use 1 Drop in the left eye four times daily. Use as needed for eye pain - L.acid/B.animalis,bifidum/FOS (PROBIOTIC COMPLEX ORAL) Take by mouth. - biotin/calcium carbonate (BIOTIN-CALCIUM ORAL) Take by mouth. - vitamin B complex (B COMPLEX-VITAMIN B12 ORAL) Take by mouth. - aspirin, enteric coated (ASPIR-LOW) 81 mg EC tablet Take 1 tablet by mouth once daily. 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 Service: ? Author Type: ? Type: Progress Notes Filed: 05/29/2024 14:22 Note Text: POPULATION HEALTH NAVIGATION OUTREACH Action/FYI Medication adherence review for med below ATORVASTATIN TAB 40MG- last fill 03-04-24, 90 day supply, next fill 06-04-24 Outcome- spoke to patient regarding refill due. Patient states she talked to [facility] the other day about a bunch of medications to send and doesn't remember if atorvastatin was one of them. Patient will contact pharmacy to check. Reason for Outreach Med Adherence Patient Contacted: Spoke to patient/parent/or legal guardian Patient identified by name and date of : Yes Med Adherence actions taken: Patient Med Adherence responses: Patient will notify Pharmacy Navigation Signature: Marvin Mota Population Health Navigator May 29, 2024 2:07 [facility]09-27-2024 History of Present illness Narrative* Aldair Population Health NavigatorMarvin - 05/29/2024 2:06 PM EDT POPULATION HEALTH NAVIGATION OUTREACH Action/FYI Medication adherence review for med below ATORVASTATIN TAB 40MG- last fill 7-3-24, 90 day supply, next fill 06-04-24 Outcome- spoke to patient regarding refill due. Patient states she talked to [facility] the other day about a bunch of medications to send and doesn't remember if atorvastatin was one of them. Patient will contact pharmacy to check. Reason for Outreach Med Adherence Patient Contacted: Spoke to patient/parent/or legal guardian Patient identified by name and date of : Yes Med Adherence actions taken: Patient Med Adherence responses: Patient will notify Pharmacy Navigation Signature: Marvin Mota Population Health Navigalfredito May 29, 2024 2:07 PM documented in this encounterFirelands Regional Medical Center09-27-2024 NotePatient Outreach (ANSHUNAV) ALLIE LYNN ([id number]) 1970 F Date Time Provider Department 05/29/24 MARVIN MOTA During your visit today, we recorded the following information about you: [place] Population Health Marvin Posey 05/29/2024 2:22 PM Signed POPULATION HEALTH NAVIGATION OUTREACH Action/FYI Medication adherence review for med below ATORVASTATIN TAB 40MG- last fill 24, 90 day supply, next fill 06-04-24 Outcome- spoke to patient regarding refill due. Patient states she talked to [facility] the other day about a bunch of medications to send and doesn't remember if atorvastatin was one of them. Patient will contact pharmacy to check. Reason for Outreach Med Adherence Patient Contacted: Spoke to patient/parent/or legal guardian Patient identified by name and date of : Yes Med Adherence actions taken: Patient Med Adherence responses: Patient will notify Pharmacy Navigation Signature: Marvin Mota Population Health Navigator May 29, 2024 2:07 PM Allergies As of Date: 05/29/2024 Noted Allergy Reaction ULTRAM (TRAMADOL HCL) 03/12/2006 11 - Vomiting DARVOCET A500 (PROPOXYPHENE N-GABRIEL*04/28/2012 1 - Mental Status Change HYDROCODONE BITARTRATE 10/19/2017 9 - Itching NITROFURANTOIN 03/05/2020 14 - Other: See Comments Comments: Loss of conciousness OPIOIDS - MORPHINE ANALOGUES 03/05/2020 9 - Itching PROPOXYPHENE 03/05/2020 14 - Other: See Comments Comments: Hallucinations TRAMADOL 03/05/2020 14 - Other: See Comments Comments: Loss of conciousness VICODIN (HYDROCODONE-ACETAMINOPHE*04/28/2012 9 - Itching Date Reviewed: 04/11/2024 Reviewed by: Laura Lepe MA - Fully Assessed Reason for Visit: Population Health Navigation Outreach [3910] Cmt: Med adherence Prescriptions as of 05/29/2024 - cyclobenzaprine (FLEXERIL) 10 mg tablet Take 1 tablet by mouth two times a day as needed. - diphenhydrAMINE (BENADRYL) 25 mg capsule Take 1-2 capsules by mouth at bedtime as needed. - lisinopril-hydroCHLOROthiazide (ZESTORETIC) 10-12.5 mg per tablet Take 1 tablet by mouth once daily. - meloxicam (MOBIC) 15 mg tablet Take 1 tablet by mouth once daily. - traZODone (DESYREL) 50 mg tablet Take 1 tablet by mouth daily at bedtime. - conjugated estrogens-medroxyPROGESTERone (PREMPRO) 0.625-2.5 mg per tablet Take 1 tablet by mouth once daily. - cyclobenzaprine (FLEXERIL) 10 mg tablet Take 1 tablet by mouth two times a day as needed. - gabapentin (NEURONTIN) 100 mg capsule Take 1 capsule by mouth daily at bedtime for 181 days. - cyanocobalamin, vitamin B-12, (VITAMIN B-12 ORAL) Take by mouth. - loratadine (CLARITIN) 10 mg tablet Take 1 tablet by mouth once daily. - dextromethorphan-guaiFENesin (MUCINEX DM) 30-600 mg per tablet Take 1 tablet by mouth two times a day. - ibuprofen (MOTRIN) 800 mg tablet Take 1 tablet by mouth every 8 hours as needed for pain. Take with food. - mometasone (NASONEX) 50 mcg/actuation nasal spray USE 2 SPRAYS NASALLY ONCE DAILY. RINSE MOUTH AFTER USE. - atorvastatin (LIPITOR) 40 mg tablet Take 1 tablet by mouth once daily. - omeprazole (PRILOSEC) 20 mg capsule Take 1 capsule by mouth once daily. - keTORolac (ACULAR) 0.5 % ophthalmic solution Use 1 Drop in the left eye four times daily. Use as needed for eye pain - L.acid/B.animalis,bifidum/FOS (PROBIOTIC COMPLEX ORAL) Take by mouth. - biotin/calcium carbonate (BIOTIN-CALCIUM ORAL) Take by mouth. - vitamin B complex (B COMPLEX-VITAMIN B12 ORAL) Take by mouth. - aspirin, enteric coated (ASPIR-LOW) 81 mg EC tablet Take 1 tablet by mouth once daily. 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] 04/15/2017 Mixed hyperlipidemia [E78.2] 04/15/2017 BPPV (benign paroxysmal positional vertigo) [H8*04/15/2017 Nausea [R11.0] 01/29/2018 Bilateral upper abdominal pain [R10.11, R10.12] 01/29/2018 Secondary glaucoma, indeterminate stage, 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 Davis if it is time for her to schedule an US carotid? States she thinks she gets this done every 2 years, due to her PXE rare disease, that causes everything in her to calcify? Asking pcp to place order and have staff phone her to schedule. [phone] [facility]09-12-[facility]24 Miscellaneous Notes* Telephone Encounter - Clint Brennan RN - 05/14/2024 12:40 PM EDT Patient phoned to ask Dr. Davis if it is time for her to schedule an US carotid? States she thinks she gets this done every 2 years, due to her PXE rare disease, that causes everything in her to calcify? Asking pcp to place order and have staff phone her to schedule. [phone] documented in this encounterFirelands Regional Medical Center09-09-2024 Telephone encounter Note * Telephone Encounter - Khalida Agarwal - 05/11/2024 1:05 PM EDT Letter placed in mail to be mailed out to patient. Khalida Agarwal May 11, 2024 1:05 PM [facility]09-09-2024 Miscellaneous Notes* Telephone Encounter - Stefano Khalida - 05/11/2024 1:05 PM EDT Letter placed in mail to be mailed out to patient. Khalida Agarwal May 11, 2024 1:05 PM * Telephone Encounter - Cynthia Ramos MD - 05/07/2024 4:30 PM EDT Condition is permanent. Letter updated and forwarded to Sana. Cynthia Ramos MD 05/07/2024 4:30 PM * Telephone Encounter - Barbie Alicea - 05/06/2024 3:16 PM EDT Patient states Certificate of Blindness letter dated 04/13 requires a duration. Patient would like letter mailed once completed. Barbie Alicea May 06, 2024 3:18 PM documented in this encounterFirelands Regional Medical Center09-05-2024 Telephone encounter Note * Telephone Encounter - Cynthia Ramos MD - 05/07/2024 4:30 PM EDT Condition is permanent. Letter updated and forwarded to Sana. Cynthia Ramos MD 05/07/2024 4:30 PM [facility]09-04-2024 Telephone encounter Note* Telephone Encounter - Barbie Alicea - 05/06/2024 3:16 PM EDT Patient states Certificate of Blindness letter dated 04/13 requires a duration. Patient would like letter mailed once completed. Barbie Alicea May 06, 2024 3:18 PM [facility]09-03-2024 Telephone encounter Note* Telephone Encounter - Cynthia Ramos MD - 05/05/2024 8:58 AM EDT Letter created. Please mail/fax. Cynthia Ramos MD 05/05/2024 8:58 AM [facility]09-03-2024 Miscellaneous Notes* Telephone Encounter - Cynthia Ramos MD - 05/05/2024 8:58 AM EDT Letter created. Please mail/fax. Cynthia Ramos MD 05/05/2024 8:58 AM * Telephone Encounter - Barbie Alicea - 05/01/2024 11:56 AM EDT Patient would like a letter stating dx, and what visual acuity is. Letter is needed for patient to get extra assistance with decreased vision. Once completed fax to [facility] at [phone]. Please advise Barbie Alicea May 01, 2024 11:58 AM documented in this encounterFirelands Regional Medical Center08-30-2024 Telephone encounter Note * Telephone Encounter - Barbie Alicea - 05/01/2024 11:56 AM EDT Patient would like a letter stating dx, and what visual acuity is. Letter is needed for patient to get extra assistance with decreased vision. Once completed fax to [facility] at [phone]. Please advise Barbie Alicea May 01, 2024 11:58 AM [facility]08-26-2024 Telephone encounter Note* Telephone Encounter - Modesta Gallardo RN - 2024 5:18 PM EDT Patient calling with request for short fill of Cyclobenzaprine to local pharmacy. Has not yet received mail delivery. Pended per request. The patient has been identified by name and date of : Yes Caregiver verified no other encounters exist for this prescription request: Yes Caregiver confirmed with patient/requestor that no other refills are due, in the near future, with this provider at this time: Yes The last office visit in the department: 03/31/2024 Does the patient have a future office visit with this provider/department: Yes 09/29/2024 Requested Prescriptions Pending Prescriptions Disp Refills cyclobenzaprine (FLEXERIL) 10 mg tablet 20 tablet 0 Sig: Take 1 tablet by mouth two times a day as needed. Modesta Gallardo RN 2024 5:26 PM [facility]08-26-2024 Miscellaneous Notes* Telephone Encounter - Modesta Gallardo RN - 2024 5:18 PM EDT Patient calling with request for short fill of Cyclobenzaprine to local pharmacy. Has not yet received mail delivery. Pended per request. The patient has been identified by name and date of : Yes Caregiver verified no other encounters exist for this prescription request: Yes Caregiver confirmed with patient/requestor that no other refills are due, in the near future, with this provider at this time: Yes The last office visit in the department: 03/31/2024 Does the patient have a future office visit with this provider/department: Yes 09/29/2024 Requested Prescriptions Pending Prescriptions Disp Refills cyclobenzaprine (FLEXERIL) 10 mg tablet 20 tablet 0 Sig: Take 1 tablet by mouth two times a day as needed. Modesta Gallardo RN 2024 5:26 PM documented in this encounterFirelands Regional Medical Center08-13-2024 Telephone encounter Note * Telephone Encounter - Emy Hanks - 04/14/2024 1:41 PM EDT Certificate scanned and mailed to patient. [facility]08-13-2024 Miscellaneous Notes* Telephone Encounter - Emy Hanks - 04/14/2024 1:41 PM EDT Certificate scanned and mailed to patient. * Telephone Encounter - Cynthia Ramos MD - 04/14/2024 12:11 PM EDT Done. Cynthia Ramos MD 04/14/2024 12:11 PM * Telephone Encounter - Khalida Agarwal - 04/13/2024 1:42 PM EDT Patient states she needs a new certificate of blindness for a handicap placard. Khalida Agarwal April 13, 2024 1:44 PM documented in this encounterFirelands Regional Medical Center08-13-2024 Telephone encounter Note * Telephone Encounter - Cynthia Ramos MD - 04/14/2024 12:11 PM EDT Done. Cynthia Ramos MD 04/14/2024 12:11 PM [facility]08-12-[facility] Telephone encounter Note* Telephone Encounter - Khalida Agarwal - 04/13/2024 1:42 PM EDT Patient states she needs a new certificate of blindness for a handicap placard. Khalida Agarwal April 13, 2024 1:44 PM [facility]08-10-2024 History of Present illness Narrative* Britta Gunn PA - 04/11/2024 12:02 PM EDT This note was created using [employer] Interact[employer]. Subjective Allie Lynn is a 53 year old female. HPI 53-year-old female presents for rash to right wrist. Patient states she noticed a rash on her right wrist about 2 days ago. She states it appears like blisters. She was working outside and pulling weeds and thinks she may have gotten into some poison. She states is very itchy. She has put some anti-itch cream on it without improvement. No fevers. No drainage. No rash anywhere else. No other complaint. PAST MEDICAL HISTORY No date: Abnormal EKG No date: Anemia No date: Angioid streaks 04/03/2022: Combined 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 cataract, left eye No date: Coronary artery disease No date: Fibromyalgia No date: GERD (gastroesophageal reflux disease) No date: Glaucoma No date: HLD (hyperlipidemia) No date: HTN (hypertension) No date: Legally blind Comment: cat 4 right and 5 left No date: Macular degeneration disease Comment: bilateral No date: Mitral prolapse Comment: per No date: Mitral valve disorders(424.0) No date: Mitral valve stenosis and aortic valve stenosis No date: Myalgia and myositis, unspecified 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) 1995: Rheumatic fever No date: Rheumatic heart disease, unspecified No date: Tubular adenoma of colon No date: Unspecified essential hypertension PAST SURGICAL HISTORY 1995: ARTHROSCOPY KNEE DIAGNOSTIC W/WO SYNOVIAL BX SPX Comment: Arthroscopy, knee No date: AVASTIN (BEVACIZUMAB) 1.25MG INTRAVITREAL INJECTION OD (RIGHT EYE); Right Comment: x 5 (03/12/17) 1988, 1991, 1993: DELIVERY ONLY Comment: , low cervical-x 3 06/22/2019: COLONOSCOPY FLX DX W/COLLJ SPEC WHEN PFRMD Comment: Colonoscopy 05/30/2023: COLONOSCOPY SCREENING Comment: Tubular adenoma 06/29/2015: CT MAXILLOFAC/SINUS Comment: normal 05/30/2023: EGD W/O BRSH SPEC VARICIES INJ Comment: Small hiatal hernia, fundic gland polyp, mild chronic gastritis 02/18/2012: ENDOMETRIAL BX W/WO ENDOCERVIX BX W/O DILAT SPX 02/03/2018: ESOPHAGOGASTRODUODENOSCOPY TRANSORAL DIAGNOSTIC Comment: EGD 10/26/2021: INCISION OF EYE, TRABECULECTOMY; Right 01/08/2020: LASER SELECTA 2 TRABECULOPLASTY; Left 10/26/2021: LASER TRABECULOPLASTY OD (RIGHT EYE); Right No date: PAST SURGICAL HISTORY OF; Bilateral Comment: trigger finger release No date: PAST SURGICAL HISTORY OF; Left Comment: laser surgery to repair capsular rupture 06/25/2022: REMV CATARACT EXTRACAP,INSERT LENS; Right 11/15/2022: REMV CATARACT EXTRACAP,INSERT LENS; Left Comment: PEIOL OS and bleb revision (bleb reduction) x 11/15/2022- Dr. Cynthia Ramos M.D. No date: S BALLOON,UTERINE ABLATION ALLERGIES Ultram [Tramadol Hcl], Darvocet A500 [Propoxyphene N-Acetaminophen], Hydrocodone Bitartrate, Nitrofurantoin, Opioids - Morphine Analogues, Propoxyphene, Tramadol, and Vicodin [Hydrocodone-Acetaminophen] MEDICATIONS lisinopril-hydroCHLOROthiazide (ZESTORETIC) 10-12.5 mg per tablet^Take 1 tablet by mouth once daily.^Disp: 90 tablet^Rfl: 3 meloxicam (MOBIC) 15 mg tablet^Take 1 tablet by mouth once daily.^Disp: 90 tablet^Rfl: 1 traZODone (DESYREL) 50 mg tablet^Take 1 tablet by mouth daily at bedtime.^Disp: 90 tablet^Rfl: 3 cyclobenzaprine (FLEXERIL) 10 mg tablet^Take 1 tablet by mouth two times a day as needed.^Disp: 180tablet^Rfl: 3 gabapentin (NEURONTIN) 100 mg capsule^Take 1 capsule by mouth daily at bedtime for 181 days.^Disp: 90 capsule^Rfl: 1 cyanocobalamin, vitamin B-12, (VITAMIN B-12 ORAL)^Take by mouth.^Disp: ^Rfl: loratadine (CLARITIN) 10 mg tablet^Take 1 tablet by mouth once daily.^Disp: 30 tablet^Rfl: 11 dextromethorphan-guaiFENesin (MUCINEX DM) 30-600 mg per tablet^Take 1 tablet by mouth two times a day.^Disp: 20 tablet^Rfl: 0 ibuprofen (MOTRIN) 800 mg tablet^Take 1 tablet by mouth every 8 hours as needed for pain. Take withfood.^Disp: 30 tablet^Rfl: 0 mometasone (NASONEX) 50 mcg/actuation nasal spray^USE 2 SPRAYS NASALLY ONCE DAILY. RINSE MOUTH AFTER USE.^Disp: 17 g^Rfl: 5 atorvastatin (LIPITOR) 40 mg tablet^Take 1 tablet by mouth once daily.^Disp: 90 tablet^Rfl: 3 omeprazole (PRILOSEC) 20 mg capsule^Take 1 capsule by mouth once daily.^Disp: 90 capsule^Rfl: 3 keTORolac (ACULAR) 0.5 % ophthalmic solution^Use 1 Drop in the left eye four times daily. Use as needed for eye pain^Disp: 5 mL^Rfl: 1 L.acid/B.animalis,bifidum/FOS (PROBIOTIC COMPLEX ORAL)^Take by mouth.^Disp: ^Rfl: biotin/calcium carbonate (BIOTIN-CALCIUM ORAL)^Take by mouth.^Disp: ^Rfl: vitamin B complex (B COMPLEX-VITAMIN B12 ORAL)^Take by mouth.^Disp: ^Rfl: aspirin, enteric coated (ASPIR-LOW) 81 mg EC tablet^Take 1 tablet by mouth once daily.^Disp: ^Rfl: 0 triamcinolone acetonide (KENALOG) 0.1 % cream^Apply 1 application to affected area two times a day for 7 days. Apply to affected area. Use sparingly.^Disp: 15 g^Rfl: 0 conjugated estrogens-medroxyPROGESTERone (PREMPRO) 0.625-2.5 mg per tablet^Take 1 tablet by mouth once daily.^Disp: 90 tablet^Rfl: 0 FAMILY HISTORY Problem Relation Age of Onset Heart Father Age 61 Heart Maternal Grandfather Cancer Paternal Grandmother Breast Cancer Maternal Aunt 55 ovarian cancer Heart Son MS Ovarian cancer Maternal Grandmother Glaucoma No Family History Detached Retina No Family History Macular Degen No Family History Blindness No Family History Amblyopia No Family History Social History Tobacco Use Smoking status: Never Smokeless tobacco: Never Vaping Use Vaping Use: Never used Substance Use Topics Alcohol use: No Drug use: No Review of Systems Constitutional: Negative for chills and fever. HENT: Negative for congestion, ear pain and sore throat. Respiratory: Negative for cough and shortness of breath. Cardiovascular: Negative for chest pain. Gastrointestinal: Negative for diarrhea and vomiting. Skin: Positive for rash. Objective BP 122/70 Pulse 92 Temp 36.6 C (97.9 F) Resp 16 Wt 69.1 kg (152 lb 5.4 oz) SpO2 97% BMI28.78 kg/m Physical Exam Vitals and nursing note reviewed. Constitutional: General: She is not in acute distress. Appearance: Normal appearance. She is not toxic-appearing. Cardiovascular: Rate and Rhythm: Normal rate and regular rhythm. Pulmonary: Effort: Pulmonary effort is normal. Breath sounds: Normal breath sounds. Skin: General: Skin is warm and dry. Findings: Rash present. Rash is vesicular. Comments: Several vesicles with some excoriation noted over right wrist. Appears consistent with a contact dermatitis. She does have a small spot on the dorsum of her left hand as well. No rash anywhere else. No lymphatic streaking. Neurological: Mental Status: She is alert. Assessment and Plan ASSESSMENT/PLAN: 1. Allergic contact dermatitis due to plants, except food - ICD9: 692.6, ICD10: L23.7 - Topical steriod tx with Rx for steriod cream/ointment- see orders -Benadryl as needed for itching. - discussed skin care of rash - follow up if symptoms persist or worsen. Diagnosis and treatment plan were discussed and questions were answered to the patient's satisfaction. Pt acknowledged understanding of concepts and follow up plan. Specific signs and symptoms that would indicate the need for higher level of care were discussed in detail warranting prompt ER evaluation. KENA Medrano documented in this encounterFirelands [facility]08-01-2024 Telephone encounter Note * Telephone Encounter - Lina Murillo LPN - 04/02/2024 8:17 AM EDT Patient notified of below results. Lina Murillo LPN [facility]08-01-[facility]24 Miscellaneous Notes* Telephone Encounter - Lina Murillo LPN - 04/02/2024 8:17 AM EDT Patient notified of below results. Lina Murillo LPN * Telephone Encounter - Lina Murillo LPN - 04/02/2024 8:15 AM EDT ----- Message from Ifeoma Davis MD sent at 04/01/2024 7:07 PM EDT ----- You are negative for hep C and HIV documented in this encounterFirelands Regional Medical Center08-01-2024 Telephone encounter Note * Telephone Encounter - Lina Murillo LPN - 04/02/2024 8:15 AM EDT ----- Message from Ifeoma Davis MD sent at 04/01/2024 7:07 PM EDT ----- You are negative for hep C and HIV [facility]07-30[facility] History of Present illness Narrative* Ifeoma Davis MD - 03/31/2024 1:00 PM EDT CC: Patient presents with: Physical HPI Allie Lynn is a 53 year old female who presents today for 6-month follow-up. 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 Dr. 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 States she has not had a bleed in her eye at a long time, but at the same time she states she wouldn't see it at this point. Slowly progressive loss of peripheral vision. Patient also reports that she has issueswith calcified joints/arthritis. She has moved back to [place], so she can use the [employer] for going places, [employer]. She is engaged in a lot of activities, and is giving back to the community as much as she can in every way she can. She has a son in [place], and a brother near by. Her eyes are getting worse, but she doesnot want to use the cane because it would make her more limited. HPL: Reviewed test results with patient , takes medications regularly , does not report side effects. Conscious to avoid red meats, full fat dairy and its by products. Exercising 3 to 5 times a week. HTN: BP controlled today. Checks BP at home. Compliant with medications. Denies any chest pain, palpitations, SOB, swelling in the feet. Careful with diet to avoid salt, trying to eat more fruits andvegetables, exercises regularly She is extremely active in the community. Takes the [employer] bus to [place] [employer] every Saturday, as well as to her Bible studies throughout the week. States these activities are very important to her because it helps keep her mentally sharp. In regards to activities that are giving her increased difficulty-she can no longer see shade variations, so has issues taking care of the house and getting dressed and ready daily. Bradly stated that her boyfriend, Rg- could help her with day to day tasks, but he also works so he is not available full-time. Needs include home health aid, usp if applicable - says her boyfriend could help her for a portion of the time (as he does already in the mornings),Patient states that she is able to adequately bathe herself, but feels like someone needs to be present so she doesn't slip getting out of the shower, etc. Needs include assistance with organizing medications for the week, personal/self care (picking out clothes, getting ready for the day). Assistance with cleaning, food preparation, Assistance with paperwork for job and family services-- any and all other resources that could be Had worked with an OT previously through [facility] in [place] previously who assisted with various techniques and resources to help making ADLs easier, but states she hasn't continued to pursue this because it's never covered by insurance Pt reports that she's very much so independent and never wants to maru helpless or feel sorry for herself, but she's afraid that if her condition progresses any further without asking for some form ofassistance, she will put herself in harm's way, attempting to perform tasks that she shouldn't be on her own. Pt is also requesting uric acid lab be ordered d/t issues with pain and swelling in hands. REVIEW OF SYSTEMS See HPI All other systems negative. 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 Macular degeneration disease bilateral Mitral prolapse per Mitral valve disorders(424.0) Mitral valve stenosis and aortic valve stenosis Myalgia and myositis, unspecified PXE (pseudoxanthoma elasticum) Rheumatic fever 1995 Rheumatic heart disease, unspecified Tubular adenoma of colon Unspecified essential hypertension PAST SURGICAL HISTORY Procedure Laterality Date ARTHROSCOPY KNEE DIAGNOSTIC W/WO SYNOVIAL BX SPX 1995 Arthroscopy, knee AVASTIN (BEVACIZUMAB) 1.25MG INTRAVITREAL INJECTION OD (RIGHT EYE) Right x 5 (03/12/17) DELIVERY ONLY 1988, 1991, 1993 , low cervical-x 3 COLONOSCOPY FLX DX W/COLLJ SPEC WHEN PFRMD 06/22/2019 Colonoscopy COLONOSCOPY SCREENING 05/30/[address] MAXILLOFAC/SINUS 06/29/2015 normal EGD W/O BRSH SPEC VARICIES INJ 05/30/2023 Small hiatal hernia, fundic gland polyp, mild chronic gastritis ENDOMETRIAL BX W/WO ENDOCERVIX BX W/O DILAT SPX 02/18/2012 ESOPHAGOGASTRODUODENOSCOPY TRANSORAL DIAGNOSTIC 02/03/2018 EGD INCISION OF EYE, TRABECULECTOMY Right 10/26/2021 LASER SELECTA 2 TRABECULOPLASTY Left 01/08/2020 LASER TRABECULOPLASTY OD (RIGHT EYE) Right 10/26/2021 PAST SURGICAL HISTORY OF Bilateral trigger finger release PAST SURGICAL HISTORY OF Left laser surgery to repair capsular rupture REMV CATARACT EXTRACAP,INSERT LENS Right 06/25/2022 REMV CATARACT EXTRACAP,INSERT LENS Left 11/15/2022 PEIOL OS and bleb revision (bleb reduction) x 11/15/2022- Dr. Cynthia Ramos M.D. S BALLOON,UTERINE ABLATION [id number] ALLERGIES Ultram [Tramadol Hcl], Darvocet A500 [Propoxyphene N-Acetaminophen], Hydrocodone Bitartrate, Nitrofurantoin, Opioids - Morphine Analogues, Propoxyphene, Tramadol, and Vicodin [Hydrocodone-Acetaminophen] MEDICATIONS lisinopril-hydroCHLOROthiazide (ZESTORETIC) 10-12.5 mg per tablet^Take 1 tablet by mouth once daily.^Disp: 90 tablet^Rfl: 3 meloxicam (MOBIC) 15 mg tablet^Take 1 tablet by mouth once daily.^Disp: 90 tablet^Rfl: 1 traZODone (DESYREL) 50 mg tablet^Take 1 tablet by mouth daily at bedtime.^Disp: 90 tablet^Rfl: 3 conjugated estrogens-medroxyPROGESTERone (PREMPRO) 0.625-2.5 mg per tablet^Take 1 tablet by mouth once daily.^Disp: 90 tablet^Rfl: 0 cyclobenzaprine (FLEXERIL) 10 mg tablet^Take 1 tablet by mouth two times a day as needed.^Disp: 180tablet^Rfl: 3 gabapentin (NEURONTIN) 100 mg capsule^Take 1 capsule by mouth daily at bedtime for 181 days.^Disp: 90 capsule^Rfl: 1 cyanocobalamin, vitamin B-12, (VITAMIN B-12 ORAL)^Take by mouth.^Disp: ^Rfl: loratadine (CLARITIN) 10 mg tablet^Take 1 tablet by mouth once daily.^Disp: 30 tablet^Rfl: 11 dextromethorphan-guaiFENesin (MUCINEX DM) 30-600 mg per tablet^Take 1 tablet by mouth two times a day.^Disp: 20 tablet^Rfl: 0 ibuprofen (MOTRIN) 800 mg tablet^Take 1 tablet by mouth every 8 hours as needed for pain. Take withfood.^Disp: 30 tablet^Rfl: 0 mometasone (NASONEX) 50 mcg/actuation nasal spray^USE 2 SPRAYS NASALLY ONCE DAILY. RINSE MOUTH AFTER USE.^Disp: 17 g^Rfl: 5 atorvastatin (LIPITOR) 40 mg tablet^Take 1 tablet by mouth once daily.^Disp: 90 tablet^Rfl: 3 omeprazole (PRILOSEC) 20 mg capsule^Take 1 capsule by mouth once daily.^Disp: 90 capsule^Rfl: 3 keTORolac (ACULAR) 0.5 % ophthalmic solution^Use 1 Drop in the left eye four times daily. Use as needed for eye pain^Disp: 5 mL^Rfl: 1 L.acid/B.animalis,bifidum/FOS (PROBIOTIC COMPLEX ORAL)^Take by mouth.^Disp: ^Rfl: biotin/calcium carbonate (BIOTIN-CALCIUM ORAL)^Take by mouth.^Disp: ^Rfl: vitamin B complex (B COMPLEX-VITAMIN B12 ORAL)^Take by mouth.^Disp: ^Rfl: aspirin, enteric coated (ASPIR-LOW) 81 mg EC tablet^Take 1 tablet by mouth once daily.^Disp: ^Rfl: 0 FAMILY HISTORY Problem Relation Age of Onset Heart Father Age 61 Heart Maternal Grandfather Cancer Paternal Grandmother Breast Cancer Maternal Aunt 55 ovarian cancer Heart Son MS Ovarian cancer Maternal Grandmother Glaucoma No Family History Detached Retina No Family History Macular Degen No Family History Blindness No Family History Amblyopia No Family History Social History Tobacco Use Smoking status: Never Smokeless tobacco: Never Vaping Use Vaping Use: Never used Substance Use Topics Alcohol use: No Drug use: No PHYSICAL EXAM BP 128/70 Pulse 80 Resp 16 Ht 154.9 cm (5' 1) Wt 68 kg (150 lb) BMI 28.34 kg/m General appearance: Well appearing, alert, in no acute distress, well-hydrated, well nourished. Skin: Areas on the neck where she had procedures, there is hyperpigmentation and some coarse nests. Head: Normocephalic, no masses, lesions, tenderness or abnormalities Eyes: Anicteric sclera. Pupils are equally round and reactive to light. Extraocular movements are intact. Ears: External ears normal, canals clear Nose/Sinuses: Nares normal, septum midline, mucosa normal, no drainage or sinus tenderness Oropharynx: Lips, mucosa, and tongue normal, teeth and gums normal, oropharynx normal Neck: Supple, no adenopathy; thyroid symmetric, normal size, no bruits Back: Normal exam Lungs: Lungs clear to auscultation. No wheezing, rhonchi, rales Heart: RRR without murmur, gallop, or rubs. No ectopy Abdomen: Normal abdominal exam, Abdomen soft, non-tender. Bowel sounds normal. No masses, organomegaly Extremities: No deformities, edema, skin discoloration, clubbing or cyanosis. Good capillary refill. Musculoskeletal: No joint swelling, deformity, or tenderness Peripheral pulses: Normal Neuro: Gait normal. Reflexes normal and symmetric. Sensation grossly intact. ASSESSMENT/PLAN: 1. Annual wellness visit - ICD9: , ICD10: Z00.00 (primary diagnosis) - Counseled on healthy diet and regular exercise 2. 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 injury - ICD9: 339.20, 908.9, ICD10: G44.309, S09.90XS Resolved 3. Primary hypertension - ICD9: 401.9, ICD10: I10 - Controlled - Recommend home blood pressure monitoring, to bring results to next visit - Encouraged sodium restriction, DASH or Mediterranean diet - Recommend regular aerobic exercise - LISINOPRIL 10 MG-HYDROCHLOROTHIAZIDE 12.5 MG TABLET 4. Trigger finger, unspecified finger, unspecified laterality - ICD9: 727.03, ICD10: M65.30 - MELOXICAM 15 MG TABLET 5. Special screening examination for viral disease - ICD9: V73.99, ICD10: Z11.59 - HEPATITIS C ANTIBODY IA WITH CONFIRMATION 6. Screening for HIV (human immunodeficiency virus) - ICD9: V73.89, ICD10: Z11.4 - HIV 1/2 COMBO WITH REFLEX TO DIFFERENTIATION 7. Legally blind - ICD9: 369.4, ICD10: H54.8 Things are getting worse recently and it is made her more dependent, it is also her greatest fear. She has to plan for her future. She is also stuck between relationship that she does not feel she iswell treated at and this makes her more sensitive. 8. Mixed hyperlipidemia - ICD9: 272.2, ICD10: E78.2 - Controlled - Counseled on healthy diet and regular exercise Ifeoma Davis MD documented in this encounterFirelands [facility] Center06-18-2024 History of Present illness Narrative* Cynthia Ramos MD - 02/18/2024 1:35 PM EDT Tmax 28 , 28 03/10/2019 ; Pachy 543 , 540 Family history Gonioscopy 03/10/2019 PTM OU with 2+ TMP Lasers and surgeries OD multiple injections; SLT 180 (inferior) 01/15/2020 (IOP 28--> 21); SLT superior 180 05/09/2021 (IOP 26-->19); TBX 10/26/2021 (IOP 24); 06/25/2022 PEIOL/suture of iridectomy (Dr. Eugene) OS multiple injections; SLT 180 (inferior angle) 01/08/2020 (IOP 28-->21); SLT superior 180 05/09/2021 (IOP 23-->22); TBX OS 09/14/2021 (IOP 29); PEIOL/bleb reduction 11/15/2022 Ocular Medication Intol, Non-efficacy, barriers cosopt - not effective Timolol - not effective cosopt ? Effectiveness rhopressa ineffective Acetazolamide/nepataze - SOB, fatigue, weight loss, memory issues Generic brimonidine 0.2% and alphagan-P - dermatitis and body rash (no symptoms with alphagan-P) ALHAJI allergy Dorzolamide-timolol dermatitis body rash Currently using none Testing -- HVF 08/20/2023 dense central scotoma, temporal sparing -- OCT 03/10/2019 OD mod sup>mild inf thinning, temp artifact; OS mild sup/inf thinning -- GCA 03/10/2019 thinning OU/retinal atrophy -- OCT macula 08/20/2023 OD diffuse macular atrophy; OS diffuse macular atrophy, possibly worse, concern for subretinal fluid -- OCT macula 02/18/2024 OD atrophy; OS scar/atrophy, full thickness hole (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 Eugene (for dysphotopsia) Plan: Lubrication as needed The potential for vision-threatening infection related to the bleb was discussed. The signs of infection and the importance of same-day medical attention if these signs develop were emphasized. 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 Bright feels this is stable since at least 2021; no further intervention to offer at this time (Z96.1) Pseudophakia of both eyes Comment: Clear, as above Plan: As above Has been working with [facility] for - progressive pseudoxanthoma elasticum macular atrophy (currently undergoing white cane training, occupational therapy) SP 6 months dilation mac OCT I have confirmed and edited as necessary the relevant ophthalmic history, ROS, and the neuro exam findings as obtained by others. I have seen and examined this patient. I have discussed the case and the management of this patient's care with the Resident/Fellow/Nuclear Physicist, if applicable. I also have reviewed and agree with the assessment and plan as stated above and agree with all of its relevant components. Cynthia Ramos MD February 18, 2024 1:35 PM documented in this encounterFirelands Regional Medical Center06-18-2024 NoteDate of Procedure 02/18/2024. Population Health Coach Information Roustabout Pusher: tri. Start time: 12:53 PM. Stop time: 1:04 PM. Notes -- OCT macula 02/18/2024 OD atrophy; OS scar/atrophy, full thickness holeZEISS 01-01-2024 Telephone encounter Note* Telephone Encounter - Calli Duvall APRN.CNP - 01/01/2024 1:16 PM EDT Prempro is prescribed by gynecology Calli Duvall APRN.HYDROGENATION STILL OPERATOR [facility]05-01-2024 Miscellaneous Notes* Telephone Encounter - Calli Duvall APRN.CNP - 01/01/2024 1:16 PM EDT Prempro is prescribed by gynecology Calli Duvall APRN.HYDROGENATION STILL OPERATOR * Telephone Encounter - Allie Mcknight LPN - 01/01/2024 9:53 AM EDT Patient has been identified by name and date of : Patient phones for refill(s): Requested Prescriptions Pending Prescriptions Disp Refills conjugated estrogens-medroxyPROGESTERone (PREMPRO) 0.625-2.5 mg per tablet 10 tablet 0 Sig: Take 1 tablet by mouth once daily. conjugated estrogens-medroxyPROGESTERone (PREMPRO) 0.625-2.5 mg per tablet 90 tablet 3 Sig: Take 1 tablet by mouth once daily. cyclobenzaprine (FLEXERIL) 10 mg tablet 180 tablet 3 Sig: Take 1 tablet by mouth two times a day as needed. Date of last office visit in primary care: 05/21/2023 Date of next office visit in primary care: 03/31/2024 Please advise. Thank you. Allie Mcknight LPN. documented in this encounterFirelands Regional Medical Center05-01-2024 Telephone encounter Note * Telephone Encounter - Allie Mcknight LPN - 01/01/2024 9:53 AM EDT Patient has been identified by name and date of : Patient phones for refill(s): Requested Prescriptions Pending Prescriptions Disp Refills conjugated estrogens-medroxyPROGESTERone (PREMPRO) 0.625-2.5 mg per tablet 10 tablet 0 Sig: Take 1 tablet by mouth once daily. conjugated estrogens-medroxyPROGESTERone (PREMPRO) 0.625-2.5 mg per tablet 90 tablet 3 Sig: Take 1 tablet by mouth once daily. cyclobenzaprine (FLEXERIL) 10 mg tablet 180 tablet 3 Sig: Take 1 tablet by mouth two times a day as needed. Date of last office visit in primary care: 05/21/2023 Date of next office visit in primary care: 03/31/2024 Please advise. Thank you. Allie Mcknight LPN. [facility]04-26-[facility] Telephone encounter Note* Telephone Encounter - Tori Morales MA - 12/27/2023 9:04 AM EDT Patient notified, [facility]04-26-[facility] Miscellaneous Notes* Telephone Encounter - Tori Morales MA - 12/27/2023 9:04 AM EDT Patient notified, * Telephone Encounter - David Anna APRN.CNP - 12/27/2023 7:29 AM EDT Gabapentin ordered as requested. Thank you David Anna APRN.HYDROGENATION STILL OPERATOR * Telephone Encounter - Allie Mcknight LPN - 12/26/2023 2:02 PM EDT Patient calling to check status of request for the Gabapentin rx. She is going to [facility] via the bus and was hoping to pick remover rx while she was out. Please advise * Telephone Encounter - Allie Mcknight LPN - 12/25/2023 2:00 PM EDT Patient calling she had MRI of her right shoulder done at [facility]. She does not see Dr Brush until December 30 for possible injection or what treatment he plans to do. Patient was asking for a Gabapentin rx. She had taken it in the past. Patient said she did not have a tear, but not sure how to explain the results. Patient is going to ask [facility] to fax report, She is legally blind so she can not drive, to come to appt with provider right now. Patient uses [facility] for her [facility], can get someone to pick remover rx for her. Please advise documented in this encounterFirelands Regional Medical Center04-26-2024 Telephone encounter Note * Telephone Encounter - David Anna APRN.CNP - 12/27/2023 7:29 AM EDT Gabapentin ordered as requested. Thank you David Anna APRN.CNP [facility]04-25-2024 Telephone encounter Note* Telephone Encounter - Allie Mcknight LPN - 12/26/2023 2:02 PM EDT Patient calling to check status of request for the Gabapentin rx. She is going to [place] via the bus and was hoping to pick remover rx while she was out. Please advise [facility]04-24-2024 Telephone encounter Note* Telephone Encounter - Allie Mcknight LPN - 12/25/2023 2:00 PM EDT Patient calling she had MRI of her right shoulder done at [facility]. She does not see Dr Brush until December 30 for possible injection or what treatment he plans to do. Patient was asking for a Gabapentin rx. She had taken it in the past. Patient said she did not have a tear, but not sure how to explain the results. Patient is going to ask [facility] to fax report, She is legally blind so she can not drive, to come to appt with provider right now. Patient uses [facility] for her pharmacy, can get someone to pick remover rx for her. Please advise [facility]04-23-[facility] History of Present illness Narrative* Destiney Mckeon APRN.HYDROGENATION STILL OPERATOR - 12/24/2023 12:45 PM EDT Allie is a 53 year old who presents for an annual gynecologic exam without complaints. Postmenopausal: ablation 2011- no bleeding HRT use: Yes, prempro Last Pap: 07/03/2019 normal HPV: 07/01/2019 negative History of abnormal pap: Yes Last mammogram: 2023 normal History of abnormal mammogram: No Sexually active: No OB History T0 L3 SAB0 IAB0 Ectopic0 Multiple0 Live Births0 Network Project Manager History LMP: Ablation Age at Menarche: Age at First : Age at Menopause: Network Project Manager History Comments: Sexual Activity: Not Currently; Male Contraception: No contraception data on record 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 Macular degeneration disease bilateral Mitral prolapse per Mitral valve disorders(424.0) Mitral valve stenosis and aortic valve stenosis Myalgia and myositis, unspecified PXE (pseudoxanthoma elasticum) Rheumatic fever 1995 Rheumatic heart disease, unspecified Tubular adenoma of colon Unspecified essential hypertension PAST SURGICAL HISTORY Procedure Laterality Date ARTHROSCOPY KNEE DIAGNOSTIC W/WO SYNOVIAL BX SPX 1995 Arthroscopy, knee AVASTIN (BEVACIZUMAB) 1.25MG INTRAVITREAL INJECTION OD (RIGHT EYE) Right x 5 (03/12/17) DELIVERY ONLY 1988, 1991, 1993 , low cervical-x 3 COLONOSCOPY FLX DX W/COLLJ SPEC WHEN PFRMD 06/22/2019 Colonoscopy COLONOSCOPY SCREENING 05/30/[address] MAXILLOFAC/SINUS 06/29/2015 normal EGD W/O BRSH SPEC VARICIES INJ 05/30/2023 Small hiatal hernia, fundic gland polyp, mild chronic gastritis ENDOMETRIAL BX W/WO ENDOCERVIX BX W/O DILAT SPX 02/18/2012 ESOPHAGOGASTRODUODENOSCOPY TRANSORAL DIAGNOSTIC 02/03/2018 EGD INCISION OF EYE, TRABECULECTOMY Right 10/26/2021 LASER SELECTA 2 TRABECULOPLASTY Left 01/08/2020 LASER TRABECULOPLASTY OD (RIGHT EYE) Right 10/26/2021 PAST SURGICAL HISTORY OF Bilateral trigger finger release PAST SURGICAL HISTORY OF Left laser surgery to repair capsular rupture REMV CATARACT EXTRACAP,INSERT LENS Right 06/25/2022 REMV CATARACT EXTRACAP,INSERT LENS Left 11/15/2022 PEIOL OS and bleb revision (bleb reduction) x 11/15/2022- Dr. Cynthia Ramos M.D. S BALLOON,UTERINE ABLATION [id number] FAMILY HISTORY Problem Relation Age of Onset Heart Father Age 61 Heart Maternal Grandfather Cancer Paternal Grandmother Breast Cancer Maternal Aunt 55 ovarian cancer Heart Son MS Ovarian cancer Maternal Grandmother Glaucoma No Family History Detached Retina No Family History Macular Degen No Family History Blindness No Family History Amblyopia No Family History SOCIAL HISTORY Social History Tobacco Use Smoking status: Never Smokeless tobacco: Never Vaping Use Vaping Use: Never used Substance Use Topics Alcohol use: No Drug use: No REVIEW OF SYSTEMS Abdomen: No abdominal pain, nausea, vomiting, diarrhea, or constipation. No bloating, early satiety, indigestion, or increased flatulence. Bladder: No dysuria, gross hematuria, urinary frequency, urinary urgency, sone incontinence Breast: No breast lumps, nipple d/c, overlying skin changes, redness or skin retraction Allergies and current medication updated:Yes EXAM: BP 126/82 Ht 4' 11.5 (1.51m) Wt 154 lb (69.9kg) BMI 30.60 kg/(m^2). GENERAL: pleasant, female in no apparent distress HEENT: Normocephalic, atraumatic, mucus membranes moist, and no lesions NECK: Supple, full range of motion, no adenopathy, and thyroid normal DERMATOLOGY: Normal, without lesions, non-icteric, and non-hirsute BREAST: soft, non-tender, symmetric, no dominant mass, normal nipple-areolar complex, no lymphadenopathy, and no nipple discharge CHEST: Normal inspiratory effort ABDOMEN: soft, non-tender, and no masses PELVIC: external genitalia normal, normal Bartholin's glands, urethra, Hoxie's glands, no vulvar lesions, no cervical lesions, physiologic discharge present, normal appearing perineal body and perianal region BIMANUAL: uterus normal size, shape and consistency, no adnexal masses, and non-tender RECTOVAGINAL: deferred. NEURO: alert and oriented x3,exam grossly non-focal EXTREMITIES: normal ASSESSMENT/PLAN: 1) Health maintenance: Pap done with HPV. Mammogram ordered Mammogram up to date Nutrition, exercise and routine health maintenance exams reviewed. Calcium/Vitamin D supplementation information provided. 2) Follow up one year or sooner as needed Destiney Mckeon APRN.DEBORAH documented in this encounterFirelands Regional Medical Center03-18-2024 History of Present illness Narrative* Adriana Vidal APRN.CNP - 11/18/2023 10:45 AM EDT Subjective HPI HPI Allie Lynn is a 53 year old female who presents today for CC of nasal congestion/sinus pain,ear pain, st. This started 1 week ago. Has tried otc medication for relief. Symptoms are worsened by nothing. Risk factors hx of recurrent sinusitis. nonsmoker. .Patient presents with: Nasal Congestion: drainage, ear pain, headache, sore throat x 1 week PAST MEDICAL HISTORY Diagnosis Date Abnormal EKG Anemia Angioid streaks Combined 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 cataract, left eye 04/03/2022 Coronary artery disease Fibromyalgia GERD (gastroesophageal reflux disease) Glaucoma HLD (hyperlipidemia) HTN (hypertension) Macular degeneration disease bilateral Mitral prolapse per Mitral valve disorders(424.0) Mitral valve stenosis and aortic valve stenosis Myalgia and myositis, unspecified PXE (pseudoxanthoma elasticum) Rheumatic fever 1995 Rheumatic heart disease, unspecified Tubular adenoma of colon Unspecified essential hypertension PAST SURGICAL HISTORY Procedure Laterality Date ARTHROSCOPY KNEE DIAGNOSTIC W/WO SYNOVIAL BX SPX 1995 Arthroscopy, knee AVASTIN (BEVACIZUMAB) 1.25MG INTRAVITREAL INJECTION OD (RIGHT EYE) Right x 5 (03/12/17) DELIVERY ONLY 1988, 1991, 1993 , low cervical-x 3 COLONOSCOPY FLX DX W/COLLJ SPEC WHEN PFRMD 06/22/2019 Colonoscopy COLONOSCOPY SCREENING 05/30/[address] MAXILLOFAC/SINUS 06/29/2015 normal EGD W/O BRSH SPEC VARICIES INJ 05/30/2023 Small hiatal hernia, fundic gland polyp, mild chronic gastritis ENDOMETRIAL BX W/WO ENDOCERVIX BX W/O DILAT SPX 02/18/2012 ESOPHAGOGASTRODUODENOSCOPY TRANSORAL DIAGNOSTIC 02/03/2018 EGD INCISION OF EYE, TRABECULECTOMY Right 10/26/2021 LASER SELECTA 2 TRABECULOPLASTY Left 01/08/2020 LASER TRABECULOPLASTY OD (RIGHT EYE) Right 10/26/2021 PAST SURGICAL HISTORY OF Bilateral trigger finger release PAST SURGICAL HISTORY OF Left laser surgery to repair capsular rupture REMV CATARACT EXTRACAP,INSERT LENS Right 06/25/2022 REMV CATARACT EXTRACAP,INSERT LENS Left 11/15/2022 PEIOL OS and bleb revision (bleb reduction) x 11/15/2022- Dr. Cynthia Ramos M.D. S BALLOON,UTERINE ABLATION [id number] ALLERGIES Ultram [Tramadol Hcl], Darvocet A500 [Propoxyphene N-Acetaminophen], Hydrocodone Bitartrate, Nitrofurantoin, Opioids - Morphine Analogues, Propoxyphene, Tramadol, and Vicodin [Hydrocodone-Acetaminophen] MEDICATIONS meloxicam (MOBIC) 15 mg tablet^Take 1 tablet by mouth once daily.^Disp: 90 tablet^Rfl: 1 ibuprofen (MOTRIN) 800 mg tablet^Take 1 tablet by mouth every 8 hours as needed for pain. Take withfood.^Disp: 30 tablet^Rfl: 0 mometasone (NASONEX) 50 mcg/actuation nasal spray^USE 2 SPRAYS NASALLY ONCE DAILY. RINSE MOUTH AFTER USE.^Disp: 17 g^Rfl: 5 atorvastatin (LIPITOR) 40 mg tablet^Take 1 tablet by mouth once daily.^Disp: 90 tablet^Rfl: 3 lisinopril-hydroCHLOROthiazide (ZESTORETIC) 10-12.5 mg per tablet^Take 1 tablet by mouth once daily.^Disp: 90 tablet^Rfl: 3 omeprazole (PRILOSEC) 20 mg capsule^Take 1 capsule by mouth once daily.^Disp: 90 capsule^Rfl: 3 traZODone (DESYREL) 50 mg tablet^Take 1 tablet by mouth daily at bedtime.^Disp: 90 tablet^Rfl: 3 keTORolac (ACULAR) 0.5 % ophthalmic solution^Use 1 Drop in the left eye four times daily. Use as needed for eye pain^Disp: 5 mL^Rfl: 1 conjugated estrogens-medroxyPROGESTERone (PREMPRO) 0.625-2.5 mg per tablet^Take 1 tablet by mouth once daily.^Disp: 90 tablet^Rfl: 3 cyclobenzaprine (FLEXERIL) 10 mg tablet^Take 1 tablet by mouth twice daily as needed.^Disp: 180 tablet^Rfl: 3 biotin/calcium carbonate (BIOTIN-CALCIUM ORAL)^Take by mouth.^Disp: ^Rfl: vitamin B complex (B COMPLEX-VITAMIN B12 ORAL)^Take by mouth.^Disp: ^Rfl: aspirin, enteric coated (ASPIR-LOW) 81 mg EC tablet^Take 1 tablet by mouth once daily.^Disp: ^Rfl: 0 azithromycin (ZITHROMAX Z-JEANINE) 250 mg tablet^Take 2 tablets day one, then, 1 tablet daily until gone.^Disp: 6 tablet^Rfl: 0 predniSONE (DELTASONE) 10 mg tablet^Take 4 tabs daily for 3 days, then 2 tabs daily for 3 days, then 1 tab daily for 3 days with food.^Disp: 21 tablet^Rfl: 0 loratadine (CLARITIN) 10 mg tablet^Take 1 tablet by mouth once daily.^Disp: 30 tablet^Rfl: 11 (Patient not taking: Reported on 11/18/2023) dextromethorphan-guaiFENesin (MUCINEX DM) 30-600 mg per tablet^Take 1 tablet by mouth two times a day.^Disp: 20 tablet^Rfl: 0 (Patient not taking: Reported on 11/18/2023) L.acid/B.animalis,bifidum/FOS (PROBIOTIC COMPLEX ORAL)^Take by mouth.^Disp: ^Rfl: (Patient not taking: Reported on 11/18/2023) gabapentin (NEURONTIN) 100 mg capsule^Take 1 capsule by mouth daily at bedtime for 181 days.^Disp: 60 capsule^Rfl: 2 (Patient not taking: Reported on 11/18/2023) FAMILY HISTORY Problem Relation Age of Onset Heart Father Age 61 Heart Maternal Grandfather Cancer Paternal Grandmother Breast Cancer Maternal Aunt 55 ovarian cancer Heart Son MS Ovarian cancer Maternal Grandmother Glaucoma No Family History Detached Retina No Family History Macular Degen No Family History Blindness No Family History Amblyopia No Family History Social History Tobacco Use Smoking status: Never Smokeless tobacco: Never Vaping Use Vaping Use: Never used Substance Use Topics Alcohol use: No Drug use: No Review of Systems Constitutional: Negative for fever. HENT: Positive for congestion, ear pain, sinus pain and sore throat. Negative for ear discharge andnosebleeds. Respiratory: Positive for cough. Negative for shortness of breath and wheezing. Musculoskeletal: Negative for neck pain. Objective Physical Exam Constitutional: General: She is not in acute distress. Appearance: She is not toxic-appearing or diaphoretic. HENT: Head: Normocephalic and atraumatic. Right Ear: Hearing, tympanic membrane, ear canal and external ear normal. Left Ear: Hearing, tympanic membrane, ear canal and external ear normal. Nose: Right Sinus: Maxillary sinus tenderness and frontal sinus tenderness present. Left Sinus: Maxillary sinus tenderness and frontal sinus tenderness present. Mouth/Throat: Pharynx: Uvula midline. No pharyngeal swelling, oropharyngeal exudate, posterior oropharyngeal erythema or uvula swelling. Eyes: General: Lids are normal. No scleral icterus. Right eye: No discharge. Left eye: No discharge. Conjunctiva/sclera: Conjunctivae normal. Pupils: Pupils are equal, round, and reactive to light. Neck: Trachea: Trachea normal. Cardiovascular: Rate and Rhythm: Normal rate and regular rhythm. Heart sounds: Normal heart sounds. Pulmonary: Effort: Pulmonary effort is normal. Breath sounds: Normal breath sounds. Musculoskeletal: Cervical back: Normal range of motion and neck supple. Lymphadenopathy: Cervical: No cervical adenopathy. Right cervical: No superficial cervical adenopathy. Left cervical: No superficial cervical adenopathy. Skin: Findings: No rash. Neurological: Mental Status: She is alert and oriented to person, place, and time. ASSESSMENT/PLAN: 1. Bacterial sinusitis - ICD9: 473.9, 041.9, ICD10: J32.9, B96.89 Start steroid first, if s/s persist or worsen in 5-7 days fill/take antibiotic, requesting aleksandr werner has worked recently for her. - Supportive care with plenty of fluids, rest, and analgesia prn. - Follow up in 3-5 days if symptoms persist or worsen. - AZITHROMYCIN 250 MG TABLET - PREDNISONE 10 MG TABLET Adriana Vidal APRN.DEBORAH documented in this encounterFirelands Regional Medical Center03-13-2024 Miscellaneous Notes* Telephone Encounter - Angelica Arreola RN - 11/13/2023 10:38 AM EDT Pt reports she has 3 pills left. Please send script as soon as able. Thank you. Patient phones for refill(s): Requested Prescriptions Pending Prescriptions Disp Refills meloxicam (MOBIC) 15 mg tablet 90 tablet Sig: Take 1 tablet by mouth once daily. Date of last office visit in primary care: 05/21/2023 Date of next office visit in primary care:not due yet- to be scheduled. Please advise. Thank you. Angelica Arreola RN. documented in this encounterFirelands Regional Medical Center02-23-2024 History of Present illness Narrative* Alessandra Lora MA - 10/25/2023 9:41 AM EST POPULATION HEALTH NAVIGATION OUTREACH Action/ P/C to patient to schedule Medicare Wellness Exam, no answer. Left message for patient to return call. My chart message sent. Patient Identified by Name and : NO Outreach Outcome/Action Unable to reach patient: Left message MyChart message sent Did you use a PCP flex slot to schedule this appointment? N/A Reason for Outreach Care Gap or Scheduling/Wellness visits Payer: Payor: [employer] AND [employer] / Plan: ANTHEM MEDICARE ADVANTAGE HMO / Product Type: HMO / Care Gap Reviewed:: Annual Wellness visit Reminder: Reminder note to check Health Maintenance for items below Health Maintenance items due: Hepatitis B Vaccine(1 of 3 - 3-dose series) Never done Covid-19 Vaccine(1) Never done Hepatitis C Screening Never done HIV Screening Never done BP Controlled (<130/80) Never done DTaP,Tdap,Td Vaccine(1 - Tdap) Never done Shingrix Vaccine(1 of 2) Never done Influenza Vaccine(1) Never done Depression Assessment due on 09/02/2023 Navigation Signature: Alessandra Lora MA October 25, 2023 9:44 AM documented in this encounterFirelands Regional Medical Center02-09-2024 Miscellaneous Notes* Letter - Coordinator, Mammography - 10/11/2023 1:18 PM EST October 14, 2023 PID: [id number] Allie Lynn [address] [place] [address] Dear Ms. Lynn, We are pleased to inform you that the results of your recent breast imaging exam on 10/10/2023 are normal. Early detection of cancer is very important. We also understand recommendations regarding breast cancer screening are controversial. Please discuss with your primary care provider which strategy is best for you and whether a mammogram is right for you. Your imaging studies and report will be kept on file at [facility] as part of your permanent medical record and are available for your continuing care. Thank you for allowing us to help in meeting your health care needs. Sincerely, Dr. Muñiz Interpreting Radiologist [facility] (Normal over 40) documented in this encounterFirelands Regional Medical Center02-08-2024 History of Present illness Narrative* Carmen Sol Mammo Tech - 10/10/2023 12:50 PM EST Radiology Service Progress Note PATIENT NAME: Allie Lynn DATE OF SERVICE: October 10, 2023 TIME: 1:08 PM PATIENT IDENTITY VERIFICATION COMPLETED USING TWO (2) IDENTIFIERS: Name and Date of confirmedby patient verbally. FALL SCREENING: Has the patient had 2 falls in the last year or 1 fall with injury or currently using an Ambulatory Assistive Device (Walker, Cane, Wheelchair, Crutches, etc.)? No PATIENT GENDER DATA: Female. status: : No status: NO. PATIENT RELEVANT IMPLANT DATA REVIEWED: Not Applicable PATIENT PRESENTS WITH AN IMPLANTABLE OR ATTACHED LANDSCAPE SUPERVISOR: No RADIOLOGY DEPARTMENT: Mammography PERIPHERAL IV DATA: Not applicable SIGNED BY: Chacha Aliceao Jared October 10, 2023 1:08 PM documented in this encounterFirelands Regional Medical Center02-06-2024 Miscellaneous Notes* Telephone Encounter - Dara Valdez RN - 10/08/2023 10:43 AM EST Cande SOTObody press operator at [facility] calls to report that completed health risk assessment care plan update was done and can be reviewed in availability portal. Cande states that provider can attend care team meeting by calling Cande. Dara Valdez RN documented in this encounterFirelands Regional Medical Center02-02-2024 History of Present illness Narrative* Mary Salinas MA - 10/04/2023 9:40 AM EST POPULATION HEALTH NAVIGATION OUTREACH Action/FYI I spoke with the patient and scheduled her mammogram. Patient needs: mammogram, flu Patient Identified by Name and : YES, via phone Outreach Outcome/Action Spoke to patient / parent / legal guardian: Patient scheduled Did you use a PCP flex slot to schedule this appointment? N/A Reason for Outreach Care Gap or Scheduling/Wellness visits Payer: Payor: [employer] AND [employer] [facility] / Plan: [employer] MEDICARE ADVANTAGE HMO / Product Type: HMO / Care Gap Reviewed:: Annual Wellness visit Breast Cancer screening Flu Vaccine Reminder: Reminder note to check Health Maintenance for items below Health Maintenance items due: Hepatitis B Vaccine(1 of 3 - 3-dose series) Never done Covid-19 Vaccine(1) Never done Hepatitis C Screening Never done HIV Screening Never done BP Controlled (<130/80) Never done DTaP,Tdap,Td Vaccine(1 - Tdap) Never done Shingrix Vaccine(1 of 2) Never done Influenza Vaccine(1) Never done Depression Assessment due on 09/02/2023 Mammogram Screening due on 09/27/2023 Navigation Signature: Mary Salinas Population Health Navigator October 04, 2023 9:40 AM documented in this encounterFirelands Regional Medical Center12-19-2023 History of Present illness Narrative* Cynthia Ramos MD - 08/20/2023 6:59 PM EST Tmax 28 , 28 03/10/2019 ; Pachy 543 , 540 Family history Gonioscopy 03/10/2019 PTM OU with 2+ TMP Lasers and surgeries OD multiple injections; SLT 180 (inferior) 01/15/2020 (IOP 28--> 21); SLT superior 180 05/09/2021 (IOP 26-->19); TBX 10/26/2021 (IOP 24); 06/25/2022 PEIOL/suture of iridectomy (Dr. Eugene) OS multiple injections; SLT 180 (inferior angle) 01/08/2020 (IOP 28-->21); SLT superior 180 05/09/2021 (IOP 23-->22); TBX OS 09/14/2021 (IOP 29); PEIOL/bleb reduction 11/15/2022 Ocular Medication Intol, Non-efficacy, barriers cosopt - not effective Timolol - not effective cosopt ? Effectiveness rhopressa ineffective Acetazolamide/nepataze - SOB, fatigue, weight loss, memory issues Generic brimonidine 0.2% and alphagan-P - dermatitis and body rash (no symptoms with alphagan-P) ALHAJI allergy Dorzolamide-timolol dermatitis body rash Currently using none Testing -- HVF 08/20/2023 dense central scotoma, temporal sparing -- OCT 03/10/2019 OD mod sup>mild inf thinning, temp artifact; OS mild sup/inf thinning -- GCA 03/10/2019 thinning OU/retinal atrophy -- OCT macula 08/20/2023 OD diffuse macular atrophy; OS diffuse macular atrophy, possibly worse, concern for subretinal fluid (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 The signs of infection and the importance of same-day medical attention if these signs develop were emphasized. 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 I have seen and examined this patient. I have discussed the case and the management of this patient's care with the Resident/Fellow/Nuclear Physicist, if applicable. I also have reviewed and agree with the assessment and plan as stated above and agree with all of its relevant components. Cynthia Ramos MD August 16, 2023 7:06 PM documented in this encounterFirelands Regional Medical Center11-21-2023 Miscellaneous Notes* Telephone Encounter - Celeste Haywood Anders - 07/23/2023 1:27 PM EST Patient has been identified by name and date of : No Patient phones for refill(s): Requested Prescriptions Pending Prescriptions Disp Refills mometasone (NASONEX) 50 mcg/actuation nasal spray 17 g 5 Date of last office visit in primary care: 05/21/2023 Date of next office visit in primary care: Visit date not found Last 2 Encounter Wt Readings: Date: Wt: 06/13/2023 73.3 kg (161 lb 9.6 oz) 06/03/2023 72.9 kg (160 lb 12.8 oz) Previous labs/tests for medication: Not applicable Please advise. Thank you. Celeste Haywood. * Telephone Encounter - Amy Nolen - 07/23/2023 1:09 PM EST Patient has been identified by name and date of : Yes Requested Prescriptions Pending Prescriptions Disp Refills mometasone (NASONEX) 50 mcg/actuation nasal spray 17 g 5 RX INSTRUCTIONS: Patient aware RX escripted to mail away pharmacy. No need to notify patient. Amy Adams documented in this encounterFirelands Regional Medical Center09-28-2023 Nurse Note* Mel Garcia RN - 05/30/2023 2:[address] Connelly at bedside to discuss procedure/findings with patient and her friend. [facility]09-28-[facility]23 Nurse Note* Mel Garcia RN - 05/30/2023 2:[address] Connelly at bedside to discuss procedure/findings with patient and her friend. documented in this encounterFirelands Regional Medical Center09-28-2023 Anesthesiology Preoperative evaluation and management note* Anesthesia PreOp - Andry Connelly MD - 05/30/2023 1:00 PM EDT HISTORY AND PHYSICAL Allie Lynn, 53 year old female Current history and physical on file: Yes Is a new History and Physical required for today's visit? No Indication for procedure: GERD; change in bowel habitus PROCEDURE(S) SCHEDULED FOR: EGD (Esophagogastroduodenoscopy) with or without biopsies, removal of polyps or lesions, dilation (any means), treatment of bleeding ( any means), Barrx treatment of Santosh's Esophagus, image tube placement or cryo therapy treatment based on clinical findings. Colonoscopy with biopsy or polypectomy BASELINE BEHAVIOR: Calm BASELINE ORIENTATION: A & O x3 All medications and allergies reviewed: Yes Skin Assessment: Warm dry mucus membranes pink Airway/Respiratory Assessment: Airway: visualization of the uvula- Yes Mouth: opening greater than 2 fingerbreadths- Yes Neck: full range of motion- Yes Breath sounds clear/equal- Yes Cardiac Assessment: Regular rate and rhythm without murmur Abdominal Assessment: Abdomen soft, non-tender, no masses or organomegaly. Sedation Plan: Moderate Additional Comments: None Andry Connelly MD [facility] Work Phone: [phone]) 523-504209-28-2023 Miscellaneous Notes* Anesthesia PreOp - Andry Connelly MD - 05/30/2023 1:00 PM EDT HISTORY AND PHYSICAL Allie Lynn, 53 year old female Current history and physical on file: Yes Is a new History and Physical required for today's visit? No Indication for procedure: GERD; change in bowel habitus PROCEDURE(S) SCHEDULED FOR: EGD (Esophagogastroduodenoscopy) with or without biopsies, removal of polyps or lesions, dilation (any means), treatment of bleeding ( any means), Barrx treatment of Santosh's Esophagus, image tube placement or cryo therapy treatment based on clinical findings. Colonoscopy with biopsy or polypectomy BASELINE BEHAVIOR: Calm BASELINE ORIENTATION: A & O x3 All medications and allergies reviewed: Yes Skin Assessment: Warm dry mucus membranes pink Airway/Respiratory Assessment: Airway: visualization of the uvula- Yes Mouth: opening greater than 2 fingerbreadths- Yes Neck: full range of motion- Yes Breath sounds clear/equal- Yes Cardiac Assessment: Regular rate and rhythm without murmur Abdominal Assessment: Abdomen soft, non-tender, no masses or organomegaly. 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 Dr. 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 States she has not had a bleed in her eye at a long time, but at the same time she states she wouldn't see it at this point. Slowly progressive loss of peripheral vision. Patient also reports that she has issueswith calcified joints/arthritis. Just sold her home here in [place] and moved to [place] with her boyfriend, and her boyfriend doesn't feel like she's entirely safe in her day to day activities. Patient called [employer] and they advised that she have a home health order placed and faxed over to them-reports she's not sure all that she can be helped with. She is extremely active in the community. Takes the [employer] bus to [employer] every Saturday, as well as to her Bible studies throughout the week. States these activities are very important to her because it helps keep her mentally sharp. In regards to activities that are giving her increased difficulty-she can no longer see shade variations, so has issues taking care of the house and getting dressed and ready daily. Bradly stated that her boyfriend, Rg- could help her with day to day tasks, but he also works so he is not available full-time. Needs include home health aid, usp if applicable - says her boyfriend could help her for a portion of the time (as he does already in the mornings),Patient states that she is able to adequately bathe herself, but feels like someone needs to be present so she doesn't slip getting out of the shower, etc. Needs include assistance with organizing medications for the week, personal/self care (picking out clothes, getting ready for the day). Assistance with cleaning, food preparation, Assistance with paperwork for job and family services-- any and all other resources that could be Had worked with an OT previously through [facility] [employer] in [place] previously who assisted with various techniques and resources to help making ADLs easier, but states she hasn't continued to pursue this because it's never covered by insurance Pt reports that she's very much so independent and never wants to maru helpless or feel sorry for herself, but she's afraid that if her condition progresses any further without asking for some form ofassistance, she will put herself in harm's way, attempting to perform tasks that she shouldn't be on her own. Pt is also requesting uric acid lab be ordered d/t issues with pain and swelling in hands. REVIEW OF SYSTEMS See HPI All other systems negative. PAST MEDICAL HISTORY Diagnosis Date Abnormal EKG Anemia Angioid streaks Combined 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 cataract, left eye 04/03/2022 Coronary artery disease Fibromyalgia GERD (gastroesophageal reflux disease) Glaucoma HLD (hyperlipidemia) HTN (hypertension) Macular degeneration disease bilateral Mitral prolapse per Mitral valve disorders(424.0) Mitral valve stenosis and aortic valve stenosis Myalgia and myositis, unspecified PXE (pseudoxanthoma elasticum) Rheumatic fever 1995 Rheumatic heart disease, unspecified Unspecified essential hypertension PAST SURGICAL HISTORY Procedure Laterality Date ARTHROSCOPY KNEE DIAGNOSTIC W/WO SYNOVIAL BX SPX 1995 Arthroscopy, knee AVASTIN (BEVACIZUMAB) 1.25MG INTRAVITREAL INJECTION OD (RIGHT EYE) Right x 5 (03/12/17) DELIVERY ONLY 1988, 1991, 1993 , low cervical-x 3 COLONOSCOPY FLX DX W/COLLJ SPEC WHEN PFRMD 06/22/[address] MAXILLOFAC/SINUS 06/29/2015 normal ENDOMETRIAL BX W/WO ENDOCERVIX BX W/O DILAT SPX 02/18/2012 ESOPHAGOGASTRODUODENOSCOPY TRANSORAL DIAGNOSTIC 02/03/2018 EGD INCISION OF EYE, TRABECULECTOMY Right 10/26/2021 LASER SELECTA 2 TRABECULOPLASTY Left 01/08/2020 LASER TRABECULOPLASTY OD (RIGHT EYE) Right 10/26/2021 PAST SURGICAL HISTORY OF Bilateral trigger finger release PAST SURGICAL HISTORY OF Left laser surgery to repair capsular rupture REMV CATARACT EXTRACAP,INSERT LENS Right 06/25/2022 REMV CATARACT EXTRACAP,INSERT LENS Left 11/15/2022 PEIOL OS and bleb revision (bleb reduction) x 11/15/2022- Dr. Cynthia Ramos M.D. S [place] [id number] ALLERGIES Ultram [Tramadol Hcl], Darvocet A500 [Propoxyphene N-Acetaminophen], Hydrocodone Bitartrate, Nitrofurantoin, Opioids - Morphine Analogues, Propoxyphene, Tramadol, and Vicodin [Hydrocodone-Acetaminophen] MEDICATIONS traZODone (DESYREL) 50 mg tablet Take 1 tablet by mouth daily at bedtime. keTORolac (ACULAR) 0.5 % ophthalmic solution Use 1 Drop in the left eye four times daily. Use as needed for eye pain mometasone (NASONEX) 50 mcg/actuation nasal spray USE 2 SPRAYS NASALLY ONCE DAILY. RINSE MOUTH AFTER USE. conjugated estrogens-medroxyPROGESTERone (PREMPRO) 0.625-2.5 mg per tablet Take 1 tablet by mouth once daily. cyclobenzaprine (FLEXERIL) 10 mg tablet Take 1 tablet by mouth twice daily as needed. meloxicam (MOBIC) 15 mg tablet Take 1 tablet by mouth once daily. atorvastatin (LIPITOR) 40 mg tablet Take 1 tablet by mouth once daily. lisinopril-hydroCHLOROthiazide (PRINZIDE,ZESTORETIC) 10-12.5 mg per tablet Take 1 tablet by mouth once daily. omeprazole (PRILOSEC) 20 mg capsule Take 1 capsule by mouth once daily. L.acid/B.animalis,bifidum/FOS (PROBIOTIC COMPLEX ORAL) Take by mouth. biotin/calcium carbonate (BIOTIN-CALCIUM ORAL) Take by mouth. vitamin B complex (B COMPLEX-VITAMIN B12 ORAL) Take by mouth. gabapentin (NEURONTIN) 100 mg capsule Take 1 capsule by mouth daily at bedtime for 181 days. aspirin, enteric coated (ASPIR-LOW) 81 mg EC tablet Take 1 tablet by mouth once daily. FAMILY HISTORY Problem Relation Age of Onset Heart Father Age 61 Heart Maternal Grandfather Cancer Paternal Grandmother Breast Cancer Maternal Aunt 55 ovarian cancer Heart Son MS Ovarian cancer Maternal Grandmother Glaucoma No Family History Detached Retina No Family History Macular Degen No Family History Blindness No Family History Amblyopia No Family History Social History Tobacco Use Smoking status: Never Smokeless tobacco: Never Vaping Use Vaping Use: Never used Substance Use Topics Alcohol use: No Drug use: No PHYSICAL EXAM BP 124/68 (BP Site: Left Arm, BP Position: Sitting, BP Cuff Size: Large Adult) Pulse 98 Temp 36.9 C (98.4 F) Resp 12 Ht 149.9 cm (4' 11) Wt 73.9 kg (163 lb) SpO2 99% BMI 32.92 kg/m General Appearance: well appearing, in no acute distress, alert, overweight Pysch: mood and affect broad and appropriate Lungs: Lungs clear to auscultation. No wheezing, rhonchi, rales. Heart: RRR without murmur, gallop, or rubs. No ectopy Extremities: No deformities, edema, skin discoloration, clubbing or cyanosis. Good capillary refill. Neurological: Gait normal. No focal neurological deficits. Sensation grossly intact. ASSESSMENT/PLAN: 1. Legally blind - ICD9: 369.4, ICD10: H54.8 (primary diagnosis) Progressively worsening issue with performing ADLs secondary to below diagnosis- order placed for home health orders, will fax over to appropriate facility once patient finds out from insurance - [facility] 2. PXE (pseudoxanthoma elasticum) - ICD9: 757.39, ICD10: Q82.8 See above - [facility] 3. Trigger finger, unspecified finger, unspecified laterality - ICD9: 727.03, ICD10: M65.30 Refills provided on meloxicam per pt request - [facility] 4. Mixed hyperlipidemia - ICD9: 272.2, ICD10: E78.2 - Controlled - Continue current medications - Counseled on healthy diet and regular exercise - ATORVASTATIN 40 MG TABLET 5. Primary hypertension - ICD9: 401.9, ICD10: I10 - Controlled - Continue current medications - Recommend home blood pressure monitoring, to bring results to next visit - Encouraged sodium restriction, DASH or Mediterranean diet - Recommend regular aerobic exercise - LISINOPRIL 10 MG-HYDROCHLOROTHIAZIDE 12.5 MG TABLET - URIC ACID BLOOD - BASIC METABOLIC PNL 6. Swelling of both hands - ICD9: 729.81, ICD10: M79.89 Will check uric acid per pt request. - URIC ACID BLOOD - BASIC METABOLIC PNL 7. Gastroesophageal reflux disease with esophagitis, unspecified whether hemorrhage - ICD9: 530.11,ICD10: K21.00 - Refills provided per pt request. - OMEPRAZOLE 20 MG CAPSULE,DELAYED RELEASE Prescription instructions reviewed with patient as applicable. Potential red flag symptoms discussed with the patient. Reviewed appropriate action plan to take if red flag symptoms occur. Patient agreeable to treatment plan. Virginia Avalos PA-C documented in this encounterFirelands Regional Medical Center09-06-2023 Miscellaneous Notes* Telephone Encounter - Sita Mauricio LPN - 05/08/2023 9:25 AM EDT PATIENT NOTIFIED OF SAME. * Telephone Encounter - Ariadne Zaidi APRN.CNP - 05/07/2023 4:28 PM EDT Printed, will sign, please call patient to pick remover. Thanks! * Telephone Encounter - Lina Murillo LPN - 05/07/2023 1:16 PM EDT Patient is needing to renew her handicapped placard, it expires this month. Please call when approved and ready for pickup. Lina Murillo LPN documented in this encounterFirelands Regional Medical Center09-01-2023 Miscellaneous Notes* Telephone Encounter - Fern Noonan LPN - 05/03/2023 10:03 AM EDT Last seen pcp 10/16/22. * Telephone Encounter - Marnie Negrete - 05/03/2023 9:59 AM EDT Please note: her mail order rx was cancelled when a short term refill was sent to local pharmacy. * Telephone Encounter - Marnie Negrete - 05/03/2023 9:58 AM EDT Patient has been identified by name and date of : Yes Requested Prescriptions Pending Prescriptions Disp Refills traZODone (DESYREL) 50 mg tablet Sig: Take 1 tablet by mouth daily at bedtime. RX INSTRUCTIONS: Patient aware RX escripted to mail away pharmacy. No need to notify patient. Marnie Adams documented in this encounterFirelands Regional Medical Center08-29-2023 Instructions* Patient Instructions* Cande Pozo PA-C - 04/30/2023 1:20 PM EDT Images from the original note were not included. - Drink around 64 oz water daily - Start Miralax daily to induce bowel movement Miralax generally will help produce bowel movement in 1-3 days Fill to top of white section in cap which is marked to indicate the correct dose (17 g) Stir and dissolve in any 8 ounces of non-carbonated beverage (cold, hot or room temperature) then drink If diarrhea occurs, reduce usage to every other day Recommend high protein, high fiber diet. Promotion of salivation through oral lozenges/chewing gum Drink plenty of water Avoid NSAIDs (such as Advil, Ibuprofen, Excedrin, Mobic), tobacco, alcohol, carbonated beverages, caffeine, chocolate, tomato based sauces, spicy/fatty foods, and peppermint Avoid eating less than 3 hours before bed. Elevate the head of the bed 6 inches, or invest in a wedge pillow. Laying on left side with head elevated may help alleviate reflux symptoms. Bowel Preparation Instructions for: Miralax-Gatorade Preparations IF YOU DO NOT FOLLOW THESE DIRECTIONS, YOUR COLONOSCOPY WILL BE CANCELLED. [place] Instructions: Your bowel must be empty so that your doctor can clearly view your colon. Follow all of the instructions in this handout EXACTLY as they are written. Do NOT eat any solid food the ENTIRE day before your colonoscopy. Buy your bowel preparation at least 5 days before your colonoscopy. Four (4) Dulcolax laxative tablets containing 5mg of bisacodyl each (NOT Dulcolax stool softener) One (1) 8.3oz. bottle Miralax (238 grams) or generic equivalent 2 x 32oz. Bottles of Gatorade (NOT RED) Diabetic Patients: Use G2 (Gatorade 2) TRANSPORTATION on the Day of Your Exam A responsible adult MUST be present with you at Check In prior to your colonoscopy and REMAIN in the endoscopy area until you are discharged. You are NOT ALLOWED to drive, take a taxi or bus, or leave the Endoscopy Center ALONE. If you do not have a responsible stunt driver (family member or friend) withyou to take you home, your exam cannot be done with sedation and will be cancelled. Please bring a list of all of your current medications, including any [id number] medications with you. Medications If you take insulin, diabetic medications or blood thinners such as Coumadin (warfarin), Plavix (clopidogrel), Ticlid (ticlopidine hydrochloride), Agrylin (anagrelide), Xarelto (Rivaroxaban), Pradaxa(Dabigatran), Eliquis (Apixaban), and Effient (Prasugrel). You MUST call the doctors who orders those medicines for instructions on altering the dosage before your colonoscopy. All other medications should be taken the day of the exam with a sip of water including ASPIRIN. Five (5) Days Before Your Colonoscopy Do NOT take medicines that stop diarrhea - such as Imodium, Kaopectate, or Pepto Bismol. Do NOT take fiber supplements - such as Metamucil, Citrucel, or Perdiem. Do NOT take products that contain iron - such as multi-vitamins (the label lists what is in the products). Three (3) Days Before Your Colonoscopy Do NOT eat high-fiber foods - such as popcorn, beans, seeds (flax, sunflower, quinoa), multigrain bread, nuts, salad/vegetables, or fresh and dried fruit. 1 Bowel Preparation Instructions for: Miralax-Gatorade Preparations One (1) Day Before Your Colonoscopy Only drink clear liquids the ENTIRE DAY before your colonoscopy. Do NOT eat any solid foods. Drink at least 8 ounces of clear liquids every hour after waking up. The clear liquids you can drink include: Clear Liquid (NO RED LIQUIDS) DO NOT DRINK Gatorade, Pedialyte or Powerade Clear broth or bouillon Coffee or tea (no milk or non-dairy creamer) Carbonated and non-carbonated soft drinks Chriss-Aid or other fruit flavored drinks Strained fruit juices (no pulp) Jell-O, popsicles, hard candy Water Alcohol Milk or non-dairy creamers Noodles or vegetables in soup Juice with pulp Liquid you cannot see through Do not use tobacco/vaping products Mix 1/2 of Miralax bottle (119 grams) in each 32 ounces of Gatorade bottle until dissolved. Keep cool in the refrigerator. DO NOT ADD ICE. The bowel preparation solution will be consumed in two parts. Part 1 5:00 PM - Evening before your colonoscopy Take 4 Dulcolax tablets. 6 PM - Evening before your colonoscopy Drink 32 oz. of the mixed solution. Drink an 8 oz. glass of bowel preparation every 15 minutes for a total of 4 glasses. Fifteen (15) minutes later, drink an 8 oz. glass of of clear liquids every 15 minutes for a total of 2 glasses. You may continue to drink clear liquids till midnight. Part 2 On the day of your colonoscopy you may drink clear liquids up to (three) 3 hours prior to procedure. 4 1/2 hours before your colonoscopy Take another 32 oz. bottle of mixed solution. Drink an 8 oz. glass of bowel prep every 15 minutes for a total of 4 glasses. Fifteen (15) minutes later, drink an 8 oz. glass of clear liquids every 15 minutes for a total of 2glasses. You may continue to drink clear liquids up to (three) 3 hours before your exam. 2 08/2019 documented in this encounterFirelands Regional Medical Center08-29-2023 History of Present illness Narrative* Cande Pozo PA-C - 04/30/2023 12:59 PM EDT CHIEF COMPLAINT: Patient presents with: GERD: Peptic ulcer at age 14. She is not sure if she has blood in her stool. Taking Tums more often. Thinks most symptoms are due to PXE HPI: Allie Lynn is a 53 year old female with PMHx positive for HTN, HLD, mitral valve disease, PXE, RHD, legally blind who presents for GERD (Peptic ulcer at age 14. She is not sure if she has blood inher stool. Taking Tums more often. Thinks most symptoms are due to PXE). Bms are constipated, taking Miralax as needed with some relief but feels as though it could be working better for her, not sure if blood in stool due to vision. Has been on Prilosec 20 mg daily for years with relief in her GERD, recently started needing to take Tums more frequently and is concerned that her reflux is worsening and uncontrolled. On Mobic daily for her chronic neck/joint pains. Denies dysphagia, emesis, weight loss. Colon 2019 Impression: - Preparation of the colon was fair. - The entire examined colon is normal. - No specimens collected. Repeat in 5 years EGD 2018 Impression: - Normal esophagus. - Erythematous mucosa in the antrum. Biopsied. - Normal examined duodenum. CONVERTED FINAL DIAGNOSIS Antrum, biopsy - Reactive gastropathy. - No morphologic evidence of Helicobacter pylori organisms. Component Latest Ref Rng & Units 10/15/2022 WBC 3.70 - 11.00 k/uL 5.90 RBC 3.90 - 5.20 m/uL 4.27 Hemoglobin 11.5 - 15.5 g/dL 12.8 Hematocrit 36.0 - 46.0 % 38.4 MCV 80.0 - 100.0 fL 89.9 MCH 26.0 - 34.0 pg 30.0 MCHC 30.5 - 36.0 g/dL 33.3 RDW-CV 11.5 - 15.0 % 12.9 Platelet Count 150 - 400 k/uL 297 MPV 9.0 - 12.7 fL 10.6 Neut% % 62.3 Abs Neut (ANC) 1.45 - 7.50 k/uL 3.68 Lymph% % 24.1 Abs Lymph 1.00 - 4.00 k/uL 1.42 [place]% % 9.8 Abs [place] <0.87 k/uL 0.58 Eosin% % 3.1 Abs Eosin <0.46 k/uL 0.18 Baso% % 0.5 Abs Baso <0.11 k/uL 0.03 Immature Gran % % 0.2 IMMATURE GRANS (ABS) <0.10 k/uL <0.03 NRBC /100 WBC 0.0 Absolute nRBC <0.01 k/uL <0.01 DTYPE Auto Protein, Total 6.3 - 8.0 g/dL 6.5 Albumin 3.9 - 4.9 g/dL 4.0 Calcium 8.5 - 10.2 mg/dL 8.9 Bilirubin, Total 0.2 - 1.3 mg/dL 0.2 Alkaline Phosphatase 34 - 123 U/L 121 AST 13 - 35 U/L 17 ALT 7 - 38 U/L 15 Glucose 74 - 99 mg/dL 91 BUN 7 - 21 mg/dL 17 Creatinine 0.58 - 0.96 mg/dL 0.83 Sodium 136 - 144 mmol/L 140 Potassium 3.7 - 5.1 mmol/L 4.2 Chloride 97 - 105 mmol/L 103 CO2 22 - 30 mmol/L 25 Anion Gap 9 - 18 mmol/L 12 eGFR >=60 mL/min/1.73m 84 Cholesterol, Total <200 mg/dL 184 Triglyceride <150 mg/dL 144 HDL Cholesterol >39 mg/dL 53 Non HDL Cholesterol <130 mg/dL 131 (H) Fasting Time hrs 12 VLDL Cholesterol <30 mg/dL 29 TC:HDL Ratio <5.10 3.47 LDL Cholesterol <100 mg/dL 102 (H) LDL:HDL Ratio <2.54 1.92 TSH 0.270 - 4.200 mIU/L 2.830 FSH See comment mIU/mL Record Review: [facility] / Outside records reviewed. PAST MEDICAL HISTORY Diagnosis Date Abnormal EKG Anemia Angioid streaks Combined 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 cataract, left eye 04/03/2022 Coronary artery disease Fibromyalgia GERD (gastroesophageal reflux disease) Glaucoma HLD (hyperlipidemia) HTN (hypertension) Macular degeneration disease bilateral Mitral prolapse per Mitral valve disorders(424.0) Mitral valve stenosis and aortic valve stenosis Myalgia and myositis, unspecified PXE (pseudoxanthoma elasticum) Rheumatic fever 1995 Rheumatic heart disease, unspecified Unspecified essential hypertension PAST SURGICAL HISTORY Procedure Laterality Date ARTHROSCOPY KNEE DIAGNOSTIC W/WO SYNOVIAL BX SPX 1995 Arthroscopy, knee AVASTIN (BEVACIZUMAB) 1.25MG INTRAVITREAL INJECTION OD (RIGHT EYE) Right x 5 (03/12/17) DELIVERY ONLY 1988, 1991, 1993 , low cervical-x 3 COLONOSCOPY FLX DX W/COLLJ SPEC WHEN PFRMD 06/22/[address] MAXILLOFAC/SINUS 06/29/2015 normal ENDOMETRIAL BX W/WO ENDOCERVIX BX W/O DILAT SPX 02/18/2012 ESOPHAGOGASTRODUODENOSCOPY TRANSORAL DIAGNOSTIC 02/03/2018 EGD INCISION OF EYE, TRABECULECTOMY Right 10/26/2021 LASER SELECTA 2 TRABECULOPLASTY Left 01/08/2020 LASER TRABECULOPLASTY OD (RIGHT EYE) Right 10/26/2021 PAST SURGICAL HISTORY OF Bilateral trigger finger release PAST SURGICAL HISTORY OF Left laser surgery to repair capsular rupture REMV CATARACT EXTRACAP,INSERT LENS Right 06/25/2022 REMV CATARACT EXTRACAP,INSERT LENS Left 11/15/2022 PEIOL OS and bleb revision (bleb reduction) x 11/15/2022- Dr. Cynthia Ramos M.D. S [place] [id number] Allergies: ALLERGIES Allergen Reactions Ultram [Tramadol Hc* Vomiting Darvocet A500 [Prop* Mental Status Change Hydrocodone Bitartr* Itching Nitrofurantoin Other: See Comments Loss of conciousness Opioids - Morphine * Itching Propoxyphene Other: See Comments Hallucinations Tramadol Other: See Comments Loss of conciousness Vicodin [Hydrocodon* Itching Medications: keTORolac (ACULAR) 0.5 % ophthalmic solution Use 1 Drop in the left eye four times daily. Use as needed for eye pain mometasone (NASONEX) 50 mcg/actuation nasal spray USE 2 SPRAYS NASALLY ONCE DAILY. RINSE MOUTH AFTER USE. traZODone (DESYREL) 50 mg tablet Take 1 tablet by mouth daily at bedtime. conjugated estrogens-medroxyPROGESTERone (PREMPRO) 0.625-2.5 mg per tablet Take 1 tablet by mouth once daily. cyclobenzaprine (FLEXERIL) 10 mg tablet Take 1 tablet by mouth twice daily as needed. meloxicam (MOBIC) 15 mg tablet Take 1 tablet by mouth once daily. atorvastatin (LIPITOR) 40 mg tablet Take 1 tablet by mouth once daily. lisinopril-hydroCHLOROthiazide (PRINZIDE,ZESTORETIC) 10-12.5 mg per tablet Take 1 tablet by mouth once daily. omeprazole (PRILOSEC) 20 mg capsule Take 1 capsule by mouth once daily. L.acid/B.animalis,bifidum/FOS (PROBIOTIC COMPLEX ORAL) Take by mouth. biotin/calcium carbonate (BIOTIN-CALCIUM ORAL) Take by mouth. vitamin B complex (B COMPLEX-VITAMIN B12 ORAL) Take by mouth. gabapentin (NEURONTIN) 100 mg capsule Take 1 capsule by mouth daily at bedtime for 181 days. aspirin, enteric coated (ASPIR-LOW) 81 mg EC tablet Take 1 tablet by mouth once daily. traZODone (DESYREL) 50 mg tablet Take 1 tablet by mouth daily at bedtime. prednisoLONE acetate (PRED FORTE) 1 % ophthalmic suspension Use 1 Drop in the left eye four times daily. 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 Gastrointestinal: Positive for constipation and nausea. Abdominal discomfort Are you taking any blood thinners? No Physical Examination: BP 122/72 Pulse 94 Ht 149.9 cm (4' 11) Wt 73 kg (161 lb) BMI 32.52 kg/m Physical Exam Constitutional: General: She is not in acute distress. Appearance: Normal appearance. She is normal weight. She is not ill-appearing, toxic-appearing or diaphoretic. HENT: Head: Normocephalic and atraumatic. Nose: Nose normal. Eyes: General: No scleral icterus. Right eye: No discharge. Left eye: No discharge. Extraocular Movements: Extraocular movements intact. Conjunctiva/sclera: Conjunctivae normal. Pupils: Pupils are equal, round, and reactive to light. Cardiovascular: Rate and Rhythm: Normal rate and regular rhythm. Pulses: Normal pulses. Heart sounds: Normal heart sounds. No murmur heard. No friction rub. No gallop. Pulmonary: Effort: No respiratory distress. Breath sounds: Normal breath sounds. No stridor. No wheezing, rhonchi or rales. Chest: Chest wall: No tenderness. Abdominal: General: Abdomen is flat. Bowel sounds are normal. There is no distension. Palpations: Abdomen is soft. There is no mass. Tenderness: There is no abdominal tenderness. There is no right CVA tenderness, left CVA tenderness, guarding or rebound. Hernia: No hernia is present. Musculoskeletal: General: Normal range of motion. Cervical back: Normal range of motion and neck supple. Skin: General: Skin is warm and dry. Neurological: General: No focal deficit present. Mental Status: She is alert and oriented to person, place, and time. Psychiatric: Mood and Affect: Mood normal. Behavior: Behavior normal. Assessment/Plan (K21.9) Gastroesophageal reflux disease, unspecified whether esophagitis present (primary encounterdiagnosis) (R19.4) Change in bowel habits 1. Gastroesophageal reflux disease, unspecified whether esophagitis present - EGD DIAGNOSTIC; Future - Continue Prilosec 20 mg daily, Tums PRN - Discussed gastritis precautions and provided printed edu handout - EGD to r/o PUD, H. Pylori, IM, PXE involvement. Pt reports hx of gastric ulcer 2. Change in bowel habits - COLONOSCOPY DIAGNOSTIC; Future - Drink around 64 oz water daily - Start Miralax daily to induce bowel movement Miralax generally will help produce bowel movement in 1-3 days Fill to top of white section in cap which is marked to indicate the correct dose (17 g) Stir and dissolve in any 8 ounces of non-carbonated beverage (cold, hot or room temperature) then drink If diarrhea occurs, reduce usage to every other day - Repeat colonoscopy to r/o colorectal lesions I spent a total of 20 minutes on the date of the service which included preparing to see the patient, [id number] patient care, completing clinical documentation, obtaining and/or reviewing separately obtained history, performing a medically appropriate examination, counseling and educating the pat ient/family/caregiver, ordering medications, tests, or procedures, communicating with other HCPs (not separately reported), independently interpreting results (not separately reported), communicatingresults to the patient/family/caregiver, and care coordination (not separately reported). Cande Pozo PA-C April 30, 2023 1:23 PM documented in this encounterFirelands Regional Medical Center08-24-2023 History of Present illness Narrative* Massimo Roberts MD - 04/25/2023 2:12 PM EDT Massimo Roberts MD Department of Orthopaedics Orthopaedics [address] [facility] [address] Dept: [phone] Dept April 25, 2023 CHIEF COMPLAINT: Established Patient and Pain of the Right Shoulder (Xrays taken 10/09/2022) and PostOp and Swelling of the Right Middle Finger (Last seen 11/19/22 post R ring finger trigger finger release) HPI Patient presents with: Right Shoulder - Established Patient, Pain: Xrays taken 10/09/2022 Right Middle Finger - Post Op, Swelling: Last seen 11/19/22 post R ring finger trigger finger release Patient reports pain in the right shoulder when reaching backwards. She had xrays 10/09/2022 but never reviewed the xray reports with the doctor. Patient reports pain in her right middle finger. She has never had treatment on this finger. Patient states she is legally blind and right side dominant, her hands are her eyes so she uses them more than others. Patient reports intense pain in the finger if she bumps it. AMB ROOMING INTAKE FLOWSHEET DATA Pain Pain Level: 5 Pain Location: Finger Description: Burning, Stiffness, Aching Duration Amount of Time: 6 Duration Units: Months Frequency: Continuous ASSESSMENT: R20.0, R20.2 Numbness and tingling in right hand (primary encounter diagnosis) PLAN: Difficult specifically to say. I think a nerve conduction exam would help. We will see her back after nerve testing. OBJECTIVE: Ms. Allie Lynn is a pleasant 53 year old in no apparent distress. Gen:There were no vitals taken for this visit. nl development, non obese, no deformities ENT: Normocephalic, normal hearing, moist mucosa CV: Pulses:Radial= 2+ and symmetric, capillary refill < 2 secs, no peripheral edema/varicosities Skin: no rash, bruising or lesions. Good turgor. Psych: cooperative and appropriate, alert and oriented x 3, good mood and affect. Musculoskeletal: She has good range of motion of the digits in the hand. There is some diffuse, diminished light touch sensation in the hands greater in the median nerve than in the small digit. Imaging: Deferred today Supporting Subjective Information Below: Past Surgical History: PAST SURGICAL HISTORY Procedure Laterality Date ARTHROSCOPY KNEE DIAGNOSTIC W/WO SYNOVIAL BX SPX 1995 Arthroscopy, knee AVASTIN (BEVACIZUMAB) 1.25MG INTRAVITREAL INJECTION OD (RIGHT EYE) Right x 5 (03/12/17) DELIVERY ONLY 1988, 1991, 1993 , low cervical-x 3 COLONOSCOPY FLX DX W/COLLJ SPEC WHEN PFRMD 06/22/[address] MAXILLOFAC/SINUS 06/29/2015 normal ENDOMETRIAL BX W/WO ENDOCERVIX BX W/O DILAT SPX 02/18/2012 ESOPHAGOGASTRODUODENOSCOPY TRANSORAL DIAGNOSTIC 02/03/2018 EGD INCISION OF EYE, TRABECULECTOMY Right 10/26/2021 LASER SELECTA 2 TRABECULOPLASTY Left 01/08/2020 LASER TRABECULOPLASTY OD (RIGHT EYE) Right 10/26/2021 PAST SURGICAL HISTORY OF Bilateral trigger finger release PAST SURGICAL HISTORY OF Left laser surgery to repair capsular rupture REMV CATARACT EXTRACAP,INSERT LENS Right 06/25/2022 REMV CATARACT EXTRACAP,INSERT LENS Left 11/15/2022 PEIOL OS and bleb revision (bleb reduction) x 11/15/2022- Dr. Cynthia Ramos M.D. [address] [place] [id number] Medications: Current Outpatient Medications Medication Sig keTORolac (ACULAR) 0.5 % ophthalmic solution Use 1 Drop in the left eye four times daily. Use as needed for eye pain mometasone (NASONEX) 50 mcg/actuation nasal spray USE 2 SPRAYS NASALLY ONCE DAILY. RINSE MOUTH AFTER USE. cyclobenzaprine (FLEXERIL) 10 mg tablet Take 1 tablet by mouth twice daily as needed. L.acid/B.animalis,bifidum/FOS (PROBIOTIC COMPLEX ORAL) Take by mouth. biotin/calcium carbonate (BIOTIN-CALCIUM ORAL) Take by mouth. vitamin B complex (B COMPLEX-VITAMIN B12 ORAL) Take by mouth. aspirin, enteric coated (ASPIR-LOW) 81 mg EC tablet Take 1 tablet by mouth once daily. meloxicam (MOBIC) 15 mg tablet Take 1 tablet by mouth once daily. atorvastatin (LIPITOR) 40 mg tablet Take 1 tablet by mouth once daily. lisinopril-hydroCHLOROthiazide (ZESTORETIC) 10-12.5 mg per tablet Take 1 tablet by mouth once daily. omeprazole (PRILOSEC) 20 mg capsule Take 1 capsule by mouth once daily. traZODone (DESYREL) 50 mg tablet Take 1 tablet by mouth daily at bedtime. conjugated estrogens-medroxyPROGESTERone (PREMPRO) 0.625-2.5 mg per tablet Take 1 tablet by mouth once daily. gabapentin (NEURONTIN) 100 mg capsule Take 1 capsule by mouth daily at bedtime for 181 days. No current facility-administered medications for this visit. Allergies: Ultram [Tramadol Hcl], Darvocet A500 [Propoxyphene N-Acetaminophen], Hydrocodone Bitartrate, Nitrofurantoin, Opioids - Morphine Analogues, Propoxyphene, Tramadol, and Vicodin [Hydrocodone-Acetaminophen] ROS: General (negative for fatigue, malaise, weight loss/gain) HEENT (negative for headache, earache, recent vision changes, sinus pain, sore throat) Respiratory (no recent shortness of breath, hemoptysis) CV (negative for chest tightness, palpitations) Musculoskeletal (see HPI) Psych (no depression, anxiety) Massimo Roberts MD documented in this encounterFirelands Regional Medical Center08-14-2023 Miscellaneous Notes* Telephone Encounter - Allie Mcknight LPN - 04/15/2023 1:46 PM EDT Phoned patient and went over notes from Dr Jefferson with understanding. Advised patient to check hospital where she had her children at, she had C-Sections done, check with medical records dept, should have had blood type done when she was . * Telephone Encounter - Socorro Jefferson MD - 04/12/2023 1:02 AM EDT Let her know that insurance does not cover cost of blood typing if not for medical reason such as blood transfusion. Also, I tried to pend an order but alerts prevent me from filing an order. Not sure if there is a work around this. * Telephone Encounter - Starla Mckeon LPN - 04/09/2023 1:35 PM EDT Pt calling and is requesting blood work to find out her blood type. This is for a program eating related to your blood type. Pt is also asking the cost of this. Please advise pt with willing to order for pt and how she can find out the cost. Starla Mckeon LPN documented in this encounterFirelands Regional Medical Center06-20-2023 History of Present illness Narrative* Cynthia Ramos MD - 02/19/2023 3:06 PM EDT Tmax 28 , 28 03/10/2019 ; Pachy 543 , 540 Family history Gonioscopy 03/10/2019 PTM OU with 2+ TMP Lasers and surgeries OD multiple injections; SLT 180 (inferior) 01/15/2020 (IOP 28--> 21); SLT superior 180 05/09/2021 (IOP 26-->19); TBX 10/26/2021 (IOP 24); 06/25/2022 PEIOL/suture of iridectomy (Dr. Eugene) OS multiple injections; SLT 180 (inferior angle) 01/08/2020 (IOP 28-->21); SLT superior 180 05/09/2021 (IOP 23-->22); TBX OS 09/14/2021 (IOP 29); PEIOL/bleb reduction 11/15/2022 Ocular Medication Intol, Non-efficacy, barriers cosopt - not effective Timolol - not effective cosopt ? 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, indeterminate stage, bilateral (primary encounter diagnosis) Comment: s/p PEIOL and bleb reduction surgery LEFT EYE 11/15/2022 - subsequently found to have peaked pupil with vitreous to paracentesis - resolved with YAG vitreolysis; doing well; IOP surgically controlled Patient feels vision same with or without SVL glasses - discussed that glasses Mrx is minimal and that most of her refractive needs are for near; doing well with OTC readers + bleb dysthesia OS - bleb well covered by eyelid s/p reduction surgery, no bleb leak OD doing well s/p TBX, s/p PEIOL/reduction of iridectomy (h/o dysphotopsia) Plan: Lubrication The potential for vision-threatening infection related to the bleb was discussed. The signs of infection and the importance of same-day medical attention if these signs develop were emphasized. 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 I have seen and examined this patient. I have discussed the case and the management of this patient's care with the Resident/Fellow/Nuclear Physicist, if applicable. I also have reviewed and agree with the assessment and plan as stated above and agree with all of its relevant components. Cynthia Ramos MD February 19, 2023 3:11 PM documented in this encounterFirelands Regional Medical Center05-30-2023 Miscellaneous Notes* Telephone Encounter - Celeste Cardona LPN - 01/29/2023 3:17 PM EDT Patient has been identified by name and date of : No Patient phones for refill(s): Requested Prescriptions Pending Prescriptions Disp Refills mometasone (NASONEX) 50 mcg/actuation nasal spray [Pharmacy Med Name: MOMETASONE SPR 50MCG] 17 g 5 Sig: USE 2 SPRAYS NASALLY ONCE DAILY. RINSE MOUTH AFTER USE. Date of last office visit in primary care: 06/04/22 Last 2 Encounter Wt Readings: Date: Wt: 12/10/2022 72.6 kg (160 lb) 10/16/2022 71.7 kg (158 lb) Previous labs/tests for medication: Not applicable Please advise. Thank you. Celeste Cardona LPN documented in this encounterFirelands Regional Medical Center05-02-2023 Discharge summary Author Sharifa Morrissey [facility] January 01, 2023 12:18pm Note Date/Time January 01, 2023 12:18p [facility] Occupational Therapy [facility] [place] [address] / REHABILITATION SERVICES DISCHARGE SUMMARY MR#: [id number] Acct: [id number] Name: ALLIE LYNN Rep #: [id number] : 1970 52 From: Sharifa CARBAJAL/Yonathan, CHT Referring : Status: REG RCR Eval Date: Discharge Date: It has been my pleasure to treat ALLIE LYNN under orders from TAINA FAN, for the diagnosis of right RF trigger finger and left MF trigger finger for a total of 4 visit(s). Please see the following information for a summary of their discharge status. % Improvement: 80 Objective/Function: right remotely piloted vehicle controller strength 50#. left remotely piloted vehicle controller strength 40# (US completed previous to remotely piloted vehicle controller). right RF PIP -5/45. left MF PIP -15/50 Patient Goals: Regain Mobility, Regain Strength, Decrease Pain, Use Hand/Wrist/Arm Normally Again Goal:Daily scar massage when approriate: Yes Goal:ROM equal to unaffected hand: Yes Goal:Maintenance Person/Pinch strength at least 75% of unaffected hand: Yes Goal:No pain with affected hand use: Yes Goal:Full use of affected hand in daily activities including: Yes Plan: Continue HEP; AROM of hands. Last appt today. D/C Discharge Comments: pt was seen for 4 OT sessions following trigger finger sx. pt continues to have scar adhesions that limits tight composite fist. Pt demo understanding of time it takes to allow for full recovery. pt agrees to D/c withHEP. If there are questions or concerns regarding this patient's occupational therapy, please fell free to call me at [phone]. Thank you for the referral of this patient. Sincerely, Sharifa Morrissey OTR/Yonathan, CHT <Electronically signed by Sharifa Morrissey OTR/Yonathan, CHT> 01/01/23 1218 CC: Dr. Ifeoma Davis MD; TAINA FAN ~ MK Signed [facility] Work Phone: 1(259) 168-417504-12-2023 Miscellaneous Notes* Telephone Encounter - Celeste Cardnoa JOLIE - 12/12/2022 1:19 PM EDT Patient has been identified by name and date of : No Patient phones for refill(s): Requested Prescriptions Pending Prescriptions Disp Refills traZODone (DESYREL) 50 mg tablet 90 tablet 3 Sig: Take 1 tablet by mouth daily at bedtime. traZODone (DESYREL) 50 mg tablet 14 tablet 0 Sig: Take 1 tablet by mouth daily at bedtime. Date of last office visit in primary care: 10/16/22 Last 2 Encounter Wt Readings: Date: Wt: 12/10/2022 72.6 kg (160 lb) 10/16/2022 71.7 kg (158 lb) Previous labs/tests for medication: Not applicable Please advise. Thank you. Celeste Cardona LPN * Telephone Encounter - Melly Prado Pss - 12/12/2022 9:04 AM EDT Patient has been identified by name and date of : Yes Requested Prescriptions Pending Prescriptions Disp Refills traZODone (DESYREL) 50 mg tablet 90 tablet 3 Sig: Take 1 tablet by mouth daily at bedtime. traZODone (DESYREL) 50 mg tablet 14 tablet 0 Sig: Take 1 tablet by mouth daily at bedtime. RX INSTRUCTIONS: Patient needs 14 days to [facility] today - she is going today to [facility] and since she cannot drive due to legally blind, please send JUVE so she can pick remover while at [facility] this morning. Please send 90 days to [facility] Rx Mail order. Please call patient once 14 days is sent to [facility]. Patient aware RX will be sent to pharmacy. No need to notify patient. Patient aware RX escripted to mail away pharmacy. No need to notify patient. Melly Prado Pss' documented in this encounterFirelands Regional Medical Center04-04-2023 Instructions* Patient Instructions* Cynthia Ramos MD - 12/04/2022 11:15 AM EDT Continue Prednisolone (pink/white) 1 drop LEFT eye 4 x daily Continue Ketorolac (saunders) 1 drop LEFT eye 4 x daily OK to use refresh or gel drop documented in this encounterFirelands Regional Medical Center04-04-2023 History of Present illness Narrative* Cynthia Ramos MD - 12/04/2022 11:09 AM EDT Tmax 28 , 28 03/10/2019 ; Pachy 543 , 540 Family history Gonioscopy 03/10/2019 PTM OU with 2+ TMP Lasers and surgeries OD multiple injections; SLT 180 (inferior) 01/15/2020 (IOP 28--> 21); SLT superior 180 05/09/2021 (IOP 26-->19); TBX 10/26/2021 (IOP 24) OS multiple injections; SLT 180 (inferior angle) 01/08/2020 (IOP 28-->21); SLT superior 180 05/09/2021 (IOP 23-->22); TBX OS 09/14/2021 (IOP 29) Ocular Medication Intol, Non-efficacy, barriers cosopt - not effective Timolol - not effective cosopt ? Effectiveness rhopressa ineffective Acetazolamide/nepataze - SOB, fatigue, weight loss, memory issues Generic brimonidine 0.2% and alphagan-P - dermatitis and body rash (no symptoms with alphagan-P) ALHAJI allergy Dorzolamide-timolol dermatitis body rash Currently using emycin ointment bedtime OD Refresh as needed prednisolone/ketorolac OS 4 x daily Testing -- HVF 04/07/2019 OD central scotoma; OS cecocentral scotoma, not centered, low reliability -- OCT 03/10/2019 OD mod sup>mild inf thinning, temp artifact; OS mild sup/inf thinning -- GCA 03/10/2019 thinning OU/retinal atrophy (Z09) Follow-up exam (primary encounter diagnosis) Comment: s/p PEIOL and bleb reduction surgery LEFT EYE 11/15/2022 - PCIOL in place but inferior pupil peaked toward paracentesis by band of vitreous; no pseudophokodonesis - suspect area of zonular weakness inf temporally correlating with prior multiple intravitreal injections Band visible on gonioscopy Patient tolerated YAG vitreolysis using gonio mirror - band of vitreous successfully lysed without incident Plan: Continue Prednisolone (pink/white) 1 drop LEFT eye 4 x daily Continue Ketorolac (saunders) 1 drop LEFT eye 4 x daily OK to use refresh or gel drop F/u 1-2 week post-laser in [place] (patient to confirm which day/time) - mac OCT OS - SP to check then plan to dilate with mydriacyl to examine retina I have confirmed and edited as necessary the relevant ophthalmic history, ROS, and the neuro exam findings as obtained by others. I have seen and examined this patient. I have discussed the case and the management of this patient's care with the Resident/Fellow/Nuclear Physicist, if applicable. I also have reviewed and agree with the assessment and plan as stated above and agree with all of its relevant components. Cynthia Ramos MD December 04, 2022 11:14 AM documented in this encounterFirelands Regional Medical Center03-23-2023 Instructions* Patient Instructions* Cynthia Ramos MD - 11/22/2022 12:23 PM EDT STOP Polymyxin trimethoprim (clear/white) Continue Prednisolone (pink/white) 1 drop LEFT eye 4 x daily Continue Ketorolac (saunders) 1 drop LEFT eye 4 x daily OK to use refresh OK to stop documented in this encounterFirelands Regional Medical Center03-23-2023 History of Present illness Narrative* Cynthia Ramos MD - 11/22/2022 12:20 PM EDT Tmax 28 , 28 03/10/2019 ; Pachy 543 , 540 Family history Gonioscopy 03/10/2019 PTM OU with 2+ TMP Lasers and surgeries OD multiple injections; SLT 180 (inferior) 01/15/2020 (IOP 28--> 21); SLT superior 180 05/09/2021 (IOP 26-->19); TBX 10/26/2021 (IOP 24) OS multiple injections; SLT 180 (inferior angle) 01/08/2020 (IOP 28-->21); SLT superior 180 05/09/2021 (IOP 23-->22); TBX OS 09/14/2021 (IOP 29) Ocular Medication Intol, Non-efficacy, barriers cosopt - not effective Timolol - not effective cosopt ? Effectiveness rhopressa ineffective Acetazolamide/nepataze - SOB, fatigue, weight loss, memory issues Generic brimonidine 0.2% and alphagan-P - dermatitis and body rash (no symptoms with alphagan-P) ALHAJI allergy Dorzolamide-timolol dermatitis body rash Currently using emycin ointment bedtime OD Refresh as needed Polytrim/prednisolone/ketorolac OS 4 x daily Testing -- HVF 04/07/2019 OD central scotoma; OS cecocentral scotoma, not centered, low reliability -- OCT 03/10/2019 OD mod sup>mild inf thinning, temp artifact; OS mild sup/inf thinning -- GCA 03/10/2019 thinning OU/retinal atrophy (Z09) Follow-up exam (primary encounter diagnosis) Comment: s/p PEIOL and bleb reduction surgery LEFT EYE 11/15/2022 - PCIOL in place but inferior pupil peaked toward paracentesis by band of vitreous; no pseudophokodonesis - suspect area of zonular weakness inf temporally correlating with prior multiple intravitreal injections Band visible on gonioscopy - will play to attempt lysis with laser using 3 mirror lens Plan: STOP Polymyxin trimethoprim (clear/white) Continue Prednisolone (pink/white) 1 drop LEFT eye 4 x daily Continue Ketorolac (saunders) 1 drop LEFT eye 4 x daily OK to use refresh OK to stop ADD ON December 04 in [place] for YAG laser (no dilation) I have confirmed and edited as necessary the relevant ophthalmic history, ROS, and the neuro exam findings as obtained by others. I have seen and examined this patient. I have discussed the case and the management of this patient's care with the Resident/Fellow/Nuclear Physicist, if applicable. I also have reviewed and agree with the assessment and plan as stated above and agree with all of its relevant components. Cynthia Ramos MD November 22, 2022 12:22 PM Exposed suture trimmed OD - cipro used pre and post S/p PEIOL OD and iridotomy suturing - aim plano ++ anisometropia and tearing from exuberant bleb extending nasally and temporally Offer PEIOL OS and bleb revision (bleb truncation) needs block I have confirmed and edited as necessary the relevant ophthalmic history, ROS, and the neuro exam findings as obtained by others. I have seen and examined this patient. I have discussed the case and the management of this patient's care with the Resident/Fellow/Nuclear Physicist, if applicable. I also have reviewed and agree with the assessment and plan as stated above and agree with all of its relevant components. Cynthia Ramos MD September 25, 2022 3:18 PM documented in this encounterFirelands Regional Medical Center03-20-2023 Miscellaneous Notes* Telephone Encounter - Henrik Chen MD - 11/19/2022 6:38 PM EDT Call from Allie Lynn via answering service on 11/17/2022. At that time she noted irritation in her recently operated eye. She notes that eye felt better when closed. Advised to take Tylenol according to the bottle directions and to gently patch the eye closed. Return call on 11/18/2022. At the time the eye felt better but she noticed either a change in the configuration of her iris or perhaps a hyphema. I asked her to come to the office on Saturday evening dileep seen. She lives in [place] and does not have transportation available. We discussed being seen at the ED for evaluation and potential evaluation by an local hazmat driver from [facility]. I advised that if she is not seen in the ED on 11/18/2022 that she either follow-up with Dr. Torres in the [facility] office or contact [facility] to be seen there. She has seen doctors at that office in the past. Henrik Chen MD documented in this encounterFirelands Regional Medical Center03-20-2023 History of Present illness Narrative* Valentine Torres, OD - 11/19/2022 3:49 PM EDT 1. Follow-up exam 4 days s/p PEIOL and bleb reduction surgery LEFT EYE 11/15/2022 - PCIOL in place but inferior pupil peaked toward paracentesis Normal IOP Plan: Continue all drops as prescribed Follow-up as instructed Keep scheduled appt with Dr. Ramos in 3 days Valentine Torres, OD November 19, 2022 3:49 PM documented in this encounterFirelands Regional Medical Center03-20-2023 Miscellaneous Notes* Telephone Encounter - Khalida Agarwal - 11/19/2022 3:37 PM EDT Spoke with patient and informed her of Dr Ramos' response. Patient states she was able to see Dr Torres for an appointment today as well. She will keep appointment on and inform the office if she develops any changes in symptoms. * Telephone Encounter - Cynthia Ramos MD - 11/19/2022 3:29 PM EDT Notes reviewed. No need to be sooner unless she develops new flashes or floaters. As the [place] doctor discussed with her, this can sometimes occur and we can often treat it with alaser in the office. We can discuss at her next appointment. Cynthia Ramos MD 11/19/2022 3:31 PM * Telephone Encounter - Khalida Agarwal - 11/19/2022 9:46 AM EDT Received office notes from [place]. Patient was seen on 11/18 at [facility] regarding abnormal pupil and hemorrhage OS. Per MD who saw patient, pupil is peaked due to strand of vit to paracentesis which can happen with cataract surgery and is more likely in patients with PXE. No signs of infection, hemorrhage or IOP spike Please see scanned documents for further clinical information and if patient should be seen sooner than 11/22 with SP. Patient aware SP out of office. * Telephone Encounter - Khalida Agarwal - 11/19/2022 8:29 AM EDT Patient reports she had surgery with Dr Ramos last week and she was also seen at the [facility] [facility]. She states that the doctor at that office removed eye patch and noticed a cosmetic issuewhere vitreous gel landed below pupil. I asked patient to have [place] fax over their notes so I can forward information to our clinical team to review to see if she should be seen sooner than her scheduled appointment on . I offered an appointment with a provider today but she would liketo wait for clinical to review office notes. Will update when notes are received. Khalida Agarwal November 19, 2022 8:36 AM documented in this encounterFirelands Regional Medical Center03-20-2023 History of Present illness Narrative* Taina Fan PA-C - 11/19/2022 2:59 PM EDT Taina Fan PA-C Department of Orthopaedics Orthopaedics [address] [facility] [address] Dept: [phone] Dept November 19, 2022 CHIEF COMPLAINT: Established Patient, Post Op, and Pain of the Right Ring Finger and Established Patient, Post Op, and Pain of the Left Middle Finger. ASSESSMENT: M65.341 Trigger ring finger of right hand (primary encounter diagnosis) M65.332 Trigger middle finger of left hand SUMMARY/PLAN: Patient presents 1 week and 5 days status post right ring trigger finger release and left middle trigger finger release. She complains of some 3 out of 10 aching at the incision site on the right, also complains of a lump on the right. She is having difficulty with range of motion on the left middle digit. Denies any locking or catching just inability to form a loose fist. I feel she would benef it from some occupational therapy, order for OT was placed and faxed to Tip or Skip. We discussed proper hand washing, no soaking of the operative hand. No heavy lifting, pushing or pulling with the operative hand, encourage gentle motion. We discussed scar massage. Follow up as planned. Exam: Incision sites are both well approximated without erythema or drainage. There is mild but appropriate edema at the base of each digit. Patient is able to form a loose composite fist and extend all digits on the right. Patient having difficulty with a loose composite fist on the left, no locking or catching of the left digit with passive flexion or extension. Hypersensitivity noted at the incisionsites, left greater than right. Imaging: Deferred today Ms. Allie Lynn was advised as to contrast therapies and/or to take analgesics/anti-inflammatories as needed and all contraindications were reviewed. Supporting Information Below: Medications: Current Outpatient Medications Medication Sig erythromycin (ROMYCIN) 5 mg/gram (0.5 %) ophthalmic ointment Use 1 application in the left eye fourtimes daily. trimethoprim-polymyxin (POLYTRIM) 10,000 unit- 1 mg/mL ophthalmic solution Use 1 Drop in the left eye four times daily. Begin 2 days BEFORE surgery keTORolac (ACULAR) 0.5 % ophthalmic solution Use 1 Drop in the left eye four times daily. Begin 2 days BEFORE surgery prednisoLONE acetate (PRED FORTE) 1 % ophthalmic suspension Use 1 Drop in the left eye four times daily. Begin 2 days BEFORE surgery mometasone (NASONEX) 50 mcg/actuation nasal spray Use 2 Sprays in the nose once daily. Rinse mouth after use. cyclobenzaprine (FLEXERIL) 10 mg tablet Take 1 tablet by mouth twice daily as needed. meloxicam (MOBIC) 15 mg tablet Take 1 tablet by mouth once daily. atorvastatin (LIPITOR) 40 mg tablet Take 1 tablet by mouth once daily. lisinopril-hydroCHLOROthiazide (PRINZIDE,ZESTORETIC) 10-12.5 mg per tablet Take 1 tablet by mouth once daily. omeprazole (PRILOSEC) 20 mg capsule Take 1 capsule by mouth once daily. conjugated estrogens-medroxyPROGESTERone (PREMPRO) 0.45-1.5 mg per tablet Take 1 tablet by mouth once daily. L.acid/B.animalis,bifidum/FOS (PROBIOTIC COMPLEX ORAL) Take by mouth. biotin/calcium carbonate (BIOTIN-CALCIUM ORAL) Take by mouth. vitamin B complex (B COMPLEX-VITAMIN B12 ORAL) Take by mouth. Collagenase powd traZODone (DESYREL) 50 mg tablet Take 1 tablet by mouth daily at bedtime. aspirin, enteric coated (ASPIR-LOW) 81 mg EC tablet Take 1 tablet by mouth once daily. benzonatate (TESSALON PERLES) 100 mg capsule Take 1 capsule by mouth three times daily as needed for cough. (Patient not taking: No sig reported) gabapentin (NEURONTIN) 100 mg capsule Take 1 capsule by mouth daily at bedtime for 181 days. No current facility-administered medications for this visit. Allergies: Ultram [Tramadol Hcl], Darvocet A500 [Propoxyphene N-Acetaminophen], Hydrocodone Bitartrate, Nitrofurantoin, Opioids - Morphine Analogues, Propoxyphene, Tramadol, and Vicodin [Hydrocodone-Acetaminophen] This note was partially generated using [employer] voice recognition system, and there may be some incorrect words, spellings, and punctuation that were not noted in checking the note before saving. Taina Fan PA-C * Alis Eid LPN - 11/19/2022 2:19 PM EDT AMB ROOMING INTAKE FLOWSHEET DATA Pain Pain Level: 6 (average 3-4 right ring finger: average left middle finger) Description: Throbbing, Other: See comment (tender) Duration Amount of Time: 1 Duration Units: Weeks Frequency: Intermittent Intervention/Comfort measure: Reposition, Relaxation, Medication (tylenol) Patient presents with: Right Ring Finger - Established Patient, Post Op, Pain Left Middle Finger - Established Patient, Post Op, Pain Patient present to office 1 week 5 days s/p trigger finger release of right ring finger and left middle finger. Patient states she does not believe the release worked on her left hand. Patient also states that she has a bump on right hand incision site. Alis Eid LPN documented in this encounterFire[facility]03-17-[facility]23 Instructions* Patient Instructions* Cynthia Ramos MD - 11/16/2022 9:44 AM EDT Post-operative drops: GLAUCOMA SURGERY Polymyxin trimethoprim (clear/white) OR Ciprofloxacin (mora) 1 drop LEFT eye 4 x daily Prednisolone (pink/white) 1 drop LEFT eye 4 x daily Ketorolac (saunders) 1 drop LEFT eye 4 x daily OK to use refresh Add erythromycin ointment at bedtime, may use up to 4 x daily LEFT EYE 5 minutes must elapse between any two drops Avoid rubbing the eye (use tissue feather technique demonstrated in the office) No water directly into the eye (shower with water hitting back of head; only washcloth to face, noteyelid) Wear shield when sleeping. Wear sunglasses in brightly lit conditions. No lifting greater than 10 lbs OK to bend down but no prolonged downward position No pools or other swimming x 2 weeks No eye makeup if applicable x 2 weeks The eye may feel itchy, gritty (foreign body sensation), teary, and light sensitive initially. You may treat these symptoms with artificial tears (as long as 5 minutes has elapsed from last drop usage), tylenol, or ibuprofen (if medically able to take). It is also expected that the pupil will be dilated for up to 2 weeks. The white of the eye may lookbloodshot. Your vision may also be blurry initially. The symptoms should improve day by day and week by week. Symptoms that warrant a call to the office: Rapid decline in vision New pain New swollen eyelid Mucous discharge Worsening light sensitivity Flood of new floaters with flashes of light Shadow in peripheral vision documented in this encounterFirelands [facility]03-17-2023 History of Present illness Narrative* Cynthia Ramos MD - 11/16/2022 9:41 AM EDT Tmax 28 , 28 03/10/2019 ; Pachy 543 , 540 Family history Gonioscopy 03/10/2019 PTM OU with 2+ TMP Lasers and surgeries OD multiple injections; SLT 180 (inferior) 01/15/2020 (IOP 28--> 21); SLT superior 180 05/09/2021 (IOP 26-->19); TBX 10/26/2021 (IOP 24) OS multiple injections; SLT 180 (inferior angle) 01/08/2020 (IOP 28-->21); SLT superior 180 05/09/2021 (IOP 23-->22); TBX OS 09/14/2021 (IOP 29) Ocular Medication Intol, Non-efficacy, barriers cosopt - not effective Timolol - not effective cosopt ? Effectiveness rhopressa ineffective Acetazolamide/nepataze - SOB, fatigue, weight loss, memory issues Generic brimonidine 0.2% and alphagan-P - dermatitis and body rash (no symptoms with alphagan-P) ALHAJI allergy Dorzolamide-timolol dermatitis body rash Currently using emycin ointment bedtime OD Refresh as needed Testing -- HVF 04/07/2019 OD central scotoma; OS cecocentral scotoma, not centered, low reliability -- OCT 03/10/2019 OD mod sup>mild inf thinning, temp artifact; OS mild sup/inf thinning -- GCA 03/10/2019 thinning OU/retinal atrophy (Z09) Follow-up exam (primary encounter diagnosis) Comment: 1 day s/p PEIOL and bleb reduction surgery LEFT EYE 11/15/2022 - PCIOL in place but inferior pupil peaked toward paracentesis ? Unclear if there is vitreous there Plan: Polymyxin trimethoprim (clear/white) OR Ciprofloxacin (mora) 1 drop LEFT eye 4 x daily Prednisolone (pink/white) 1 drop LEFT eye 4 x daily Ketorolac (saunders) 1 drop LEFT eye 4 x daily OK to use refresh Add erythromycin ointment at bedtime, may use up to 4 x daily LEFT EYE ADD ON 1 week FOLLOW-UP next week SATURDAY OR SATURDAY I have confirmed and edited as necessary the relevant ophthalmic history, ROS, and the neuro exam findings as obtained by others. I have seen and examined this patient. I have discussed the case and the management of this patient's care with the Resident/Fellow/Nuclear Physicist, if applicable. I also have reviewed and agree with the assessment and plan as stated above and agree with all of its relevant components. Cynthia Ramos MD November 16, 2022 9:44 AM Exposed suture trimmed OD - cipro used pre and post S/p PEIOL OD and iridotomy suturing - aim plano ++ anisometropia and tearing from exuberant bleb extending nasally and temporally Offer PEIOL OS and bleb revision (bleb truncation) needs block I have confirmed and edited as necessary the relevant ophthalmic history, ROS, and the neuro exam findings as obtained by others. I have seen and examined this patient. I have discussed the case and the management of this patient's care with the Resident/Fellow/Nuclear Physicist, if applicable. I also have reviewed and agree with the assessment and plan as stated above and agree with all of its relevant components. Cynthia Ramos MD September 25, 2022 3:18 PM documented in this encounterFirelands [facility]03-16-2023 History of Past illness Narrative* Problem Noted Date Resolved Date Nuclear senile cataract of left eye 11/15/2022 11/15/2022 Combined 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 06/25/2022 06/25/2022 Photopsia 06/25/2022 06/25/2022 documented as of this encounter (statuses as of 11/16/2022) [facility] of Past illness Narrative* Problem Noted Date Resolved Date Nuclear senile cataract of left eye 11/15/2022 11/15/2022 Combined 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 06/25/2022 06/25/2022 Photopsia 06/25/2022 06/25/2022 documented as of this encounter (statuses as of 11/19/2022) [facility] of Past illness Narrative* Problem Noted Date Resolved Date Nuclear senile cataract of left eye 11/15/2022 11/15/2022 Combined 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 06/25/2022 06/25/2022 Photopsia 06/25/2022 06/25/2022 documented as of this encounter (statuses as of 11/20/2022) [facility] of [facility] illness Narrative* Problem Noted Date Resolved Date Nuclear senile cataract of left eye 11/15/2022 11/15/2022 Combined 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 06/25/2022 06/25/2022 Photopsia 06/25/2022 06/25/2022 documented as of this encounter (statuses as of 11/20/2022) [facility] of [facility] illness Narrative* Problem Noted Date Resolved Date Nuclear senile cataract of left eye 11/15/2022 11/15/2022 Combined 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 06/25/2022 06/25/2022 Photopsia 06/25/2022 06/25/2022 documented as of this encounter (statuses as of 11/26/2022) [facility] Narrative* Problem Noted Date Resolved Date Nuclear senile cataract of left eye 11/15/2022 11/15/2022 Combined 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 06/25/2022 06/25/2022 Photopsia 06/25/2022 06/25/2022 documented as of this encounter (statuses as of 12/02/2022) [facility] Narrative* Problem Noted Date Resolved Date Nuclear senile cataract of left eye 11/15/2022 11/15/2022 Combined 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 06/25/2022 06/25/2022 Photopsia 06/25/2022 06/25/2022 documented as of this encounter (statuses as of 12/05/2022) [facility] Narrative* Problem Noted Date Resolved Date Nuclear senile cataract of left eye 11/15/2022 11/15/2022 Combined 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 06/25/2022 06/25/2022 Photopsia 06/25/2022 06/25/2022 documented as of this encounter (statuses as of 12/13/2022) [facility] Narrative* Problem Noted Date Resolved Date Nuclear senile cataract of left eye 11/15/2022 11/15/2022 Primary open angle glaucoma (POAG) of left eye, severe stage 11/15/2022 12/29/2022 Combined 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 06/25/2022 06/25/2022 Photopsia 06/25/2022 06/25/2022 Combined 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 cataract, left eye 04/03/2022 12/29/2022 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, right, indeterminate stage 10/26/2021 12/29/2022 documented as of this encounter (statuses as of 01/30/2023) [facility] Narrative* Problem Noted Date Resolved Date Nuclear senile cataract of left eye 11/15/2022 11/15/2022 Primary open angle glaucoma (POAG) of left eye, severe stage 11/15/2022 12/29/2022 Combined 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 06/25/2022 06/25/2022 Photopsia 06/25/2022 06/25/2022 Combined 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 cataract, left eye 04/03/2022 12/29/2022 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, right, indeterminate stage 10/26/2021 12/29/2022 documented as of this encounter (statuses as of 02/21/2023) [facility] Narrative* Problem Noted Date Diagnosed Date Resolved Date Nuclear senile cataract of left eye 11/15/2022 11/15/2022 Primary open angle glaucoma (POAG) of left eye, severe stage 11/15/2022 12/29/2022 Combined forms of age-relate d cataract of right eye 06/25/2022 06/25/2022 Photopsia 06/25/2022 06/25/2022 Combined forms of age-relate d cataract, left eye 04/03/2022 12/29/2022 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, right, indeterminate stage 10/26/2021 0 12/29/2022 documented as of this encounter (statuses as of 04/16/2023) [facility] Narrative* Problem Noted Date Diagnosed Date Resolved Date Nuclear senile cataract of left eye 11/15/2022 11/15/2022 Primary open angle glaucoma (POAG) of left eye, severe stage 11/15/2022 12/29/2022 Combined forms of age-relate d cataract of right eye 06/25/2022 06/25/2022 Photopsia 06/25/2022 06/25/2022 Combined forms of age-relate d cataract, left eye 04/03/2022 12/29/2022 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, right, indeterminate stage 10/26/2021 0 12/29/2022 documented as of this encounter (statuses as of 04/30/2023) [facility] Narrative* Problem Noted Date Diagnosed Date Resolved Date Nuclear senile cataract of left eye 11/15/2022 11/15/2022 Primary open angle glaucoma (POAG) of left eye, severe stage 11/15/2022 12/29/2022 Combined forms of age-relate d cataract of right eye 06/25/2022 06/25/2022 Photopsia 06/25/2022 06/25/2022 Combined forms of age-relate d cataract, left eye 04/03/2022 12/29/2022 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, right, indeterminate stage 10/26/2021 0 12/29/2022 documented as of this encounter (statuses as of 05/03/2023) [facility] Narrative* Problem Noted Date Diagnosed Date Resolved Date Nuclear senile cataract of left eye 11/15/2022 11/15/2022 Primary open angle glaucoma (POAG) of left eye, severe stage 11/15/2022 12/29/2022 Combined forms of age-relate d cataract of right eye 06/25/2022 06/25/2022 Photopsia 06/25/2022 06/25/2022 Combined forms of age-relate d cataract, left eye 04/03/2022 12/29/2022 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, right, indeterminate stage 10/26/2021 0 12/29/2022 documented as of this encounter (statuses as of 05/08/2023) [facility] Narrative* Problem Noted Date Diagnosed Date Resolved Date Nuclear senile cataract of left eye 11/15/2022 11/15/2022 Primary open angle glaucoma (POAG) of left eye, severe stage 11/15/2022 12/29/2022 Combined forms of age-relate d cataract of right eye 06/25/2022 06/25/2022 Photopsia 06/25/2022 06/25/2022 Combined forms of age-relate d cataract, left eye 04/03/2022 12/29/2022 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, right, indeterminate stage 10/26/2021 0 12/29/2022 documented as of this encounter (statuses as of 05/23/2023) [facility] Narrative* Problem Noted Date Diagnosed Date Resolved Date Nuclear senile cataract of left eye 11/15/2022 11/15/2022 Primary open angle glaucoma (POAG) of left eye, severe stage 11/15/2022 12/29/2022 Combined forms of age-relate d cataract of right eye 06/25/2022 06/25/2022 Photopsia 06/25/2022 06/25/2022 Combined forms of age-relate d cataract, left eye 04/03/2022 12/29/2022 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, right, indeterminate stage 10/26/2021 0 12/29/2022 documented as of this encounter (statuses as of 05/28/2023) [facility] Narrative* Problem Noted Date Diagnosed Date Resolved Date Nuclear senile cataract of left eye 11/15/2022 11/15/2022 Primary open angle glaucoma (POAG) of left eye, severe stage 11/15/2022 12/29/2022 Combined forms of age-relate d cataract of right eye 06/25/2022 06/25/2022 Photopsia 06/25/2022 06/25/2022 Combined forms of age-relate d cataract, left eye 04/03/2022 12/29/2022 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, right, indeterminate stage 10/26/2021 0 12/29/2022 documented as of this encounter (statuses as of 06/25/2023) [facility] Narrative* Problem Noted Date Diagnosed Date Resolved Date Nuclear senile cataract of left eye 11/15/2022 11/15/2022 Primary open angle glaucoma (POAG) of left eye, severe stage 11/15/2022 12/29/2022 Combined forms of age-relate d cataract of right eye 06/25/2022 06/25/2022 Photopsia 06/25/2022 06/25/2022 Combined forms of age-relate d cataract, left eye 04/03/2022 12/29/2022 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, right, indeterminate stage 10/26/2021 0 12/29/2022 documented as of this encounter (statuses as of 07/24/2023) [facility] Narrative* Problem Noted Date Diagnosed Date Resolved Date Nuclear senile cataract of left eye 11/15/2022 11/15/2022 Primary open angle glaucoma (POAG) of left eye, severe stage 11/15/2022 12/29/2022 Combined forms of age-relate d cataract of right eye 06/25/2022 06/25/2022 Photopsia 06/25/2022 06/25/2022 Combined forms of age-relate d cataract, left eye 04/03/2022 12/29/2022 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, right, indeterminate stage 10/26/2021 0 12/29/2022 documented as of this encounter (statuses as of 09/02/2023) [facility] Narrative* Problem Noted Date Diagnosed Date Resolved Date Nuclear senile cataract of left eye 11/15/2022 11/15/2022 Primary open angle glaucoma (POAG) of left eye, severe stage 11/15/2022 12/29/2022 Combined forms of age-relate d cataract of right eye 06/25/2022 06/25/2022 Photopsia 06/25/2022 06/25/2022 Combined forms of age-relate d cataract, left eye 04/03/2022 12/29/2022 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, right, indeterminate stage 10/26/2021 0 12/29/2022 documented as of this encounter (statuses as of 10/04/2023) [facility] Narrative* Problem Noted Date Diagnosed Date Resolved Date Nuclear senile cataract of left eye 11/15/2022 11/15/2022 Primary open angle glaucoma (POAG) of left eye, severe stage 11/15/2022 12/29/2022 Combined forms of age-relate d cataract of right eye 06/25/2022 06/25/2022 Photopsia 06/25/2022 06/25/2022 Combined forms of age-relate d cataract, left eye 04/03/2022 12/29/2022 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, right, indeterminate stage 10/26/2021 0 12/29/2022 documented as of this encounter (statuses as of 10/08/2023) [facility] Narrative* Problem Noted Date Diagnosed Date Resolved Date Nuclear senile cataract of left eye 11/15/2022 11/15/2022 Primary open angle glaucoma (POAG) of left eye, severe stage 11/15/2022 12/29/2022 Combined forms of age-relate d cataract of right eye 06/25/2022 06/25/2022 Photopsia 06/25/2022 06/25/2022 Combined forms of age-relate d cataract, left eye 04/03/2022 12/29/2022 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, right, indeterminate stage 10/26/2021 0 12/29/2022 documented as of this encounter (statuses as of 10/11/2023) [facility] Narrative* Problem Noted Date Diagnosed Date Resolved Date Nuclear senile cataract of left eye 11/15/2022 11/15/2022 Primary open angle glaucoma (POAG) of left eye, severe stage 11/15/2022 12/29/2022 Combined forms of age-relate d cataract of right eye 06/25/2022 06/25/2022 Photopsia 06/25/2022 06/25/2022 Combined forms of age-relate d cataract, left eye 04/03/2022 12/29/2022 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, right, indeterminate stage 10/26/2021 0 12/29/2022 documented as of this encounter (statuses as of 10/15/2023) [facility] Narrative* Problem Noted Date Diagnosed Date Resolved Date Nuclear senile cataract of left eye 11/15/2022 11/15/2022 Primary open angle glaucoma (POAG) of left eye, severe stage 11/15/2022 12/29/2022 Combined forms of age-relate d cataract of right eye 06/25/2022 06/25/2022 Photopsia 06/25/2022 06/25/2022 Combined forms of age-relate d cataract, left eye 04/03/2022 12/29/2022 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, right, indeterminate stage 10/26/2021 0 12/29/2022 documented as of this encounter (statuses as of 10/25/2023) [facility] Narrative* Problem Noted Date Diagnosed Date Resolved Date Nuclear senile cataract of left eye 11/15/2022 11/15/2022 Primary open angle glaucoma (POAG) of left eye, severe stage 11/15/2022 12/29/2022 Combined forms of age-relate d cataract of right eye 06/25/2022 06/25/2022 Photopsia 06/25/2022 06/25/2022 Combined forms of age-relate d cataract, left eye 04/03/2022 12/29/2022 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, right, indeterminate stage 10/26/2021 0 12/29/2022 documented as of this encounter (statuses as of 11/13/2023) [facility] Narrative* Problem Noted Date Diagnosed Date Resolved Date Nuclear senile cataract of left eye 11/15/2022 11/15/2022 Primary open angle glaucoma (POAG) of left eye, severe stage 11/15/2022 12/29/2022 Combined forms of age-relate d cataract of right eye 06/25/2022 06/25/2022 Photopsia 06/25/2022 06/25/2022 Combined forms of age-relate d cataract, left eye 04/03/2022 12/29/2022 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, right, indeterminate stage 10/26/2021 0 12/29/2022 documented as of this encounter (statuses as of 11/18/2023) [facility] Narrative* Problem Noted Date Diagnosed Date Resolved Date Nuclear senile cataract of left eye 11/15/2022 11/15/2022 Primary open angle glaucoma (POAG) of left eye, severe stage 11/15/2022 12/29/2022 Combined forms of age-relate d cataract of right eye 06/25/2022 06/25/2022 Photopsia 06/25/2022 06/25/2022 Combined forms of age-relate d cataract, left eye 04/03/2022 12/29/2022 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 Also reminded patient to refrain from eating or drinking for 8 hours prior to arrival for surgery, and to begin eyedrops in the left eye on 11/13/22. Patient states understanding and is agreeable. documented in this encounterFire[facility]03[facility]23 Miscellaneous Notes* Telephone Encounter - Chana Mao Ma - 11/05/2022 11:19 AM EST I called and spoke with patient. She will pick remover more hibiclens. Packet left at [facility] front office manager. * Telephone Encounter - Natasha Jurado LPN - 11/05/2022 10:28 AM EST Patient called. Verified name and date of . Patient states she has surgery scheduled Saturdayand misplaced the packet of hand industrial cleaner needed for the day of surgery. Can patient pick remover anotherpacket? Natasha Jurado LPN documented in this encounterFire[facility]03[facility]23 Miscellaneous Notes* Telephone Encounter - Chana Mao Ma - 11/02/2022 10:25 AM EST I called and spoke to patient. Message given to patient from Taina. Patient states she had a very nice gentleman call her yesterday from [facility] with some instructions. * Telephone Encounter - Taina Fan PA-C - 11/01/2022 10:54 AM EST Nothing to eat or drink, after midnight the day prior to her procedure. She can continue with all her prescribed medications and supplements up until the day of surgery. The only medication that she can take the day of surgery is her Prilosec/omeprazole, assuming that is a morning medication? She may resume medications the day following surgery. * Telephone Encounter - Chana Mao Ma - 11/01/2022 10:46 AM EST I called and spoke with patient. She had pre op with PCP office and was cleared for surgery so she didn't need [facility], but she does not have instructions for medications on the day of surgery or food restriction. Please advise. * Telephone Encounter - Mary Cochran LPN - 11/01/2022 9:55 AM EST Patient called, verified name and date of regarding upcoming surgery with Dr. Roberts. Patient stated she has questions regarding procedure. Patient would like a phone call back Please advise patient at [phone]. Thank you Mray Cochran LPN documented in this encounterFire[facility]23 NoteHNO ID: [id number] Author: Michelle Perez OT/L Service: ? Author Type: Occupational Therapist Type: Progress Notes Filed: 10/31/2022 11:47 AM Note Text: Episode Visit Count: 3 Therapist That Will Accept/Oversee The Plan Of Care: MICHELLE PEREZ Start of Care Date: 09/19/22 Onset Date: 11/16/17 Plan of Care Certification Date: 09/19/22 Next Certification Due Date: 11/18/22 Patient Identified by Name and Date of : Yes REHABILITATION AND SPORTS THERAPY OCCUPATIONAL THERAPY TREATMENT NOTE ASSESSMENT: Allie Lynn tolerated the session with no issues. She demonstrated improvements in FOLLOW THROUGH OF USING ADAPTIVE TECHNIQUES AND DEVICES FOR IADLS/ADLS. The patient will continue to benefit from ongoing skilled occupational therapy to progress toward set goals. Current Frequency: 1x every other week Duration: 12 weeks Total Number of Visits Planned: 6 Planned Treatment Interventions: Therapeutic exercise (78878), Self-chcf management (03953), Patient/Family/Caregiver Education, Functional training, Community / Work Reintegration PLAN FOR NEXT VISIT: FOLLOW UP ON SELF PERFORMANCE ASSESSMENT FOR ADLS/IADLS AND ADDRESS SAME and ADDRESS ECCENTRIC FIXATION SUBJECTIVE: Patient reported that she has a lot going on this date. She reported that she used the ISSUED JIM MAGNIFIER LIGHT and used this in her office, and living room w/ lamp for added contrast and prefers the added light more than the added magnification. She did report benefit with trialing the emiliano fit over filters issued on loan (dark and light). Pain: Pain Pain Level: 0 OBJECTIVE MEASURES WITH LEVEL OF FUNCTION: No objective measures taken this date. Please refer to assessment for response to interventions provided. TREATMENT: Therapeutic Exercise: 1: REINFORCED HER USING SUPERIOR ECCENTRIC VIEWING AND FIXATION BUT DID NOT PROVIDE FORMAL EXERCISES/TRAINING ON THIS DATE. WILL WAIT UNTIL SHE HAS CATARACT SURGERY COMPLETED. Skilled Intervention: Patient education as noted. Self-Detention Management: 1: COOKING: provided her with black contrast large print marked measuring spoons and cups and was independent with using same. 2: AVOCATIONAL PURSUITS: REPAIRING earrings, she id. that attempts to repair metal earrings w/ use of the Jim lite was limited. She sought out assistance from her friend for same. 3: FUNCTIONAL COMMUNICATION: she did self report that she was successful with using the JIM LITE for reading instructions provided for preparing for for medical procedure. She is pursuing financial assistance from [employer] [place] and has the letter with equipment recommendations from Dr. Mason and application to submitt but was instructed over the phone that she needed TWO estimates to be provided w/ application. This OT reviewed same per her request and this was NOT indicated on the form/application. Instructed her to place call and follow up with this. 4: SELF CARE TRAINING: ORGANIZING SUPPLIES/MATCHING SOCKS: her friend assisted her with organizing her hair clips, practiced the sock clips issued last tx session and she did trail both styles and understands how to use same. ++ADMINISTRATING EYE DROPS: she practiced simulated use of the AUTO EYE DROPPER and issued same to her to use d/t self reporting that she is struggling with administering same and touching the eye dropper to her eye. 5: ENVIRONMENTAL MODIFICATIONS/EDUCATION: education provided for contrast and reducing excessive patterns and reinforced her to read through the patient education materials provided in past tx session after reviewing basic treatment recommendations. Did trial the contrast black and white tape for her steps. She is going to continue to borrow the dark and light emiliano fit over filters for inside and outside use until the next time she is seen in OP OT. Instructed her to locate printed patient education materials and read through same d/t it appears that she has NOT completed this recommendation since packet of materials/education/resources was issued to her. 6: TO INCREASE PARTICIPATION WITH [employer]:- trialed the [employer] TV GLASSES and was able to pick out signs, traffic, people outside when trialing same. Reviewed cleaning, and care instructions for taking care of them. She is wanting to borrow these for watching tv, seeing screens at her [employer] to increase active participation with same. She id understanding instructions and accurately adjusted the focal distance with the lenses after practicing with same. 7: PROCURING OPTICAL AIDS/DEVICES: as id. above, did review her paperwork and recommendations made: *contact [facility] services in [facility] to verify need of needing two written estimates;*if she does require two estimates then she was provided with another agency to assist w/ selling the recommended devices (MAGNIFIERS AND MORE) and (more content not included)...[facility]03-01-[facility] History of Present illness Narrative * Michelle Perez, OT/L - 10/31/2022 9:45 AM EST Episode Visit Count: 3 Therapist That Will Accept/Oversee The Plan Of Care: MICHELLE PEREZ Start of Care Date: 09/19/22 Onset Date: 11/16/17 Plan of Care Certification Date: 09/19/22 Next Certification Due Date: 11/18/22 Patient Identified by Name and Date of : Yes REHABILITATION AND SPORTS THERAPY OCCUPATIONAL THERAPY TREATMENT NOTE ASSESSMENT: Allie Lynn tolerated the session with no issues. She demonstrated improvements in FOLLOW THROUGH OF USING ADAPTIVE TECHNIQUES AND DEVICES FOR IADLS/ADLS. The patient will continue to benefit from ongoing skilled occupational therapy to progress toward set goals. Current Frequency: 1x every other week Duration: 12 weeks Total Number of Visits Planned: 6 Planned Treatment Interventions: Therapeutic exercise (59801), Self-chcf management (27646), Patient/Family/Caregiver Education, Functional training, Community / Work Reintegration PLAN FOR NEXT VISIT: FOLLOW UP ON SELF PERFORMANCE ASSESSMENT FOR ADLS/IADLS AND ADDRESS SAME and ADDRESS ECCENTRIC FIXATION SUBJECTIVE: Patient reported that she has a lot going on this date. She reported that she used the ISSUED JIM MAGNIFIER LIGHT and used this in her office, and living room w/ lamp for added contrast and prefers the added light more than the added magnification. She did report benefit with trialing the emiliano fit over filters issued on loan (dark and light). Pain: Pain Pain Level: 0 OBJECTIVE MEASURES WITH LEVEL OF FUNCTION: No objective measures taken this date. Please refer to assessment for response to interventions provided. TREATMENT: Therapeutic Exercise: 1: REINFORCED HER USING SUPERIOR ECCENTRIC VIEWING AND FIXATION BUT DID NOT PROVIDE FORMAL EXERCISES/TRAINING ON THIS DATE. WILL WAIT UNTIL SHE HAS CATARACT SURGERY COMPLETED. Skilled Intervention: Patient education as noted. Self-Detention Management: 1: COOKING: provided her with black contrast large print marked measuring spoons and cups and was independent with using same. 2: AVOCATIONAL PURSUITS: REPAIRING earrings, she id. that attempts to repair metal earrings w/ use of the Jim lite was limited. She sought out assistance from her friend for same. 3: FUNCTIONAL COMMUNICATION: she did self report that she was successful with using the JIM LITE for reading instructions provided for preparing for for medical procedure. She is pursuing financial assistance from [employer] [place] and has the letter with equipment recommendations from and application to submitt but was instructed over the phone that she needed TWO estimates to be provided w/ application. This OT reviewed same per her request and this was NOT indicated on the form/application. Instructed her to place call and follow up with this. 4: SELF CARE TRAINING: ORGANIZING SUPPLIES/MATCHING SOCKS: her friend assisted her with organizing her hair clips, practiced the sock clips issued last tx session and she did trail both styles and understands how to use same. ++ADMINISTRATING EYE DROPS: she practiced simulated use of the AUTO EYE D ROPPER and issued same to her to use d/t self reporting that she is struggling with administering same and touching the eye dropper to her eye. 5: ENVIRONMENTAL MODIFICATIONS/EDUCATION: education provided for contrast and reducing excessive patterns and reinforced her to read through the patient education materials provided in past tx session after reviewing basic treatment recommendations. Did trial the contrast black and white tape for her steps. She is going to continue to borrow the dark and light emiliano fit over filters for inside and outside use until the next time she is seen in OP OT. Instructed her to locate printed patient education materials and read through same d/t it appears that she has NOT completed this recommendationsince packet of materials/education/resources was issued to her. 6: TO INCREASE PARTICIPATION WITH [employer]:- trialed the [employer] TV GLASSES and wasable to pick out signs, traffic, people outside when trialing same. Reviewed cleaning, and care instructions for taking care of them. She is wanting to borrow these for watching tv, seeing screens ather [employer] to increase active participation with same. She id understanding instructions and accurately adjusted the focal distance with the lenses after practicing with same. 7: PROCURING OPTICAL AIDS/DEVICES: as id. above, did review her paperwork and recommendations made:*contact [facility] services in [facility] to verify need of needing two written estimates;*if she does require two estimates then she was provided with another agency to assist w/ selling the recommended devices (MAGNIFIERS AND MORE) and will provide her with contact information if in fact this is required. 8: FUNCTIONAL TRANSFERS: IN/OUT OF TUB:, id. difficulty getting my bearings after I rinse my hair off by tilting my head backwards. Instruction provided to flex head forward to rinse, and to consider additional support from a wall mounted grab bar when transfering out of shower/tub area. She was provided with demonstration of suction cup grab bar but also educated that this is NOT as safe as wall mounted and should only be considered for supporting self and NOT pulling self up/out. She was provided one that was donated to the OT department with verbal and visual demonstration provided to use at home but again was instructed re: safety considerations for using same and that a wall mounted intalled bar is preferred. 9: DRESSING SELF: id. difficulty with maintaining balance and steadying self with same. Instr. her to secure a chair, sit on commode or side of bed during dressing and not to stand to step into LE clothing items. 10: COMBING HAIR: D/T DECREASED ABILITY TO SEE hair/back side of head and relies on others for feedback. She was instructed to use her cell phone, take a picture of self with mirror reflection and then enlarge picture to determine if she needs to comb hair out further. She did trial this and did demon. being at a modified indep. level and will consider same for home use. Skilled Intervention: Skilled judgment in the selection of proper modification for activity of daily living/home management based on clinical presentation, deficits, and needs. Physical assistance was provided during education for modifications and patient safety. Educated the patient regarding recommendations and provided written instruction to facilitate compliance. Provided written instruction for activities of daily living techniques to facilitate proper performance and compliance. Reviewed patient specific diagnosis in relation to activities of daily living/home management. Activity progression based on professional judgement.Episode Visit Count: 3 Therapist That Will Accept/Oversee The Plan Of Care: MICHELLE PEREZ Start of Care Date: 09/19/22 Onset Date: 11/16/17 Plan of Care Certification Date: 09/19/22 Next Certification Due Date: 11/18/22 Patient Identified by Name and Date of : Yes REHABILITATION AND SPORTS THERAPY OCCUPATIONAL THERAPY PROGRESS REPORT PLAN OF CARE UPDATE: Assessment: Allie Lynn demonstrates moderate improvement in IADLS/ADLS. She has progressed toward goals. Patient continues to present with impairments in ADL's, balance, gait, independence in exercise, overall function, patient reported outcome measures, and RECALLING INSTRUCTION/EDUCATION RE: COMMUNITY SUPPORT AND RESOURCES, ADAPTIVE EQUIPMENT AND OPTICAL AIDS that interfere with IADLS/ADLS/FUNCTIONAL MOBILITY . Current prognosis is Good due to: current objective clinical presentation, positive past response to therapy, within- session changes, good support system/ coping skillsGOOD . She will benefit from continued skilled therapy services to meet the updated goals for this plan of careas noted below. Goals for Episode of Care created on 09/19/22 through 12/18/22 GOAL UPDATED ON 10/31/22, AND SHE WILL NOT BE SEEN UNTIL December 2022 D/T MULTIPLE SURGERIES SCHEDULED FOR THIS MONTH. THIS WAS REVIEWED WITH PATIENT ON THIS DATE. Patient will identify adaptations for contrast, lighting, and organization / labeling, in their kitchen, bedroom, bathroom, office, living room, that will best suit their lifestyle, and be independent with use., MARKED IMPROVEMENT, ONGOING; Patient will identify adaptive tools for: meal preparation, self-care, and writing which will best suit their lifestyle, and will be independent with use, MARKED IMPROVEMENT AND ONGOING; Patient will understand concepts of compensation for visual impairments, so that they may independently problem solve specific issues in order to improve independent functioning in daily routine, MARKED IMPROVEMENT AND ONGOING; Patient will learn techniques to educate family /friends on their visual function, so that they will be able to more effectively interact with him or her, MARKED IMPROVEMENT AND ONGOING; Patient will be independent with sighted guide techniques, including ability to train an inexperienced guide for emergency situations, ADDRESSED BUT ONGOING. Planned Interventions, Frequency, and Duration: 1x every other week, 12 weeks Total Number of Visits Planned: 6 Planned Treatment Interventions: Therapeutic exercise (46189), Self-chcf management (23402), Patient/Family/Caregiver Education, Functional training, Community / Work Reintegration PLAN FOR NEXT VISIT: FOLLOW UP ON SELF PERFORMANCE ASSESSMENT FOR ADLS/IADLS AND ADDRESS SAME and ADDRESS ECCENTRIC FIXATION PROMIS Scales T-scores: mean of general population = 50. 5 points is clinically meaningfully difference Percentiles provide an indication of how the patient's score ranks in relation to the general population. Higher percentile rankings indicate better function/quality of life. 50th percentile is the average of the general population and indicates half of respondents had a worse score. Billing Self-Care/Home Management Treatment Minutes: 77 Total Treatment Time Minutes (timed/untimed): 77 Michelle Perez OT/L documented in this encounterFirelands [facility]02-24-2023 Miscellaneous Notes* Telephone Encounter - Viviana Cochran - 10/26/2022 9:40 AM EST Patient left message in surgery scheduling to reschedule 10/29/22 IOL measurements (ascan). Called patient and offered 11/08/22 at 8:30 am. Patient declines due to has hand surgery the day before. States she will arrange transportation with a family member (called [employer] too late to set up through them). Will keep 10/29/22 as scheduled. documented in this encounterFirelands [facility] Center02-21-2023 History of Present illness Narrative* Mel Fleming RDMS - 10/23/2022 4:00 PM EST Radiology Service Progress Note PATIENT NAME: Allie Lynn DATE OF SERVICE: October 23, 2022 TIME: 4:42 PM PATIENT IDENTITY VERIFICATION COMPLETED USING TWO (2) IDENTIFIERS: Name and Date of confirmedby patient verbally. FALL SCREENING: Has the patient had 2 falls in the last year or 1 fall with injury or currently using an Ambulatory Assistive Device (Walker, Cane, Wheelchair, Crutches, etc.)? Yes, Patient High Riskfor Falls What interventions were put in place to prevent falls during this visit? Offered Assistance with Transfers/Clothing, Increased Observations by Caregivers, and Patient Refused Interventions/Assistance PATIENT GENDER DATA: Female. status: : No status: NO. PATIENT RELEVANT IMPLANT DATA REVIEWED: Not Applicable RADIOLOGY DEPARTMENT: Ultrasound PERIPHERAL IV DATA: Not applicable SIGNED BY: Mel Fleming RDMS October 23, 2022 4:42 PM documented in this encounterFirelands Regional Medical Center02-15-2023 NoteHNO ID: [id number] Author: Michelle Perez, OT/L Service: ? Author Type: Occupational Therapist Type: Progress Notes Filed: 10/17/2022 12:21 PM Note Text: Episode Visit Count: 2 Therapist That Will Accept/Oversee The Plan Of Care: MICHELLE PEREZ Start of Care Date: 09/19/22 Onset Date: 11/16/17 Plan of Care Certification Date: 09/19/22 Next Certification Due Date: 11/18/22 Patient Identified by Name and Date of : Yes REHABILITATION AND SPORTS THERAPY OCCUPATIONAL THERAPY TREATMENT NOTE ASSESSMENT: Allie Lynn tolerated the session with no issues. She demonstrated improvements WITH FOLLOWING THROUGH WITH INSTRUCTION/EDUCATION AND NEW ADAPTIVE TECHNIQUES TO AID IN USING VISION MORE EFFICIENTLY WITH IADLS/ADLS. The patient will continue to benefit from ongoing skilled occupational therapy to progress toward set goals. PLAN FOR NEXT VISIT: FOLLOW UP ON SELF PERFORMANCE ASSESSMENT FOR ADLS/IADLS AND ADDRESS SAME and ADDRESS ECCENTRIC FIXATION SUBJECTIVE: Has trigger finger release surgery on B hands on November 07 2022, and LEFT cataract removal on 11/15/22 and surgical modification to the LEFT eye (revision) of [place]. She id. That yesterday she was cooking in microwave and burnt food item d/t not seeing the correct number. She used the Jim lite for increased task lighting to read a recipe, and complete writing/paper work. Pain: Pain Pain Level: 0 OBJECTIVE MEASURES WITH LEVEL OF FUNCTION: TREATMENT: Self-Detention Management: 1: FUNCTIONAL COMMUNICATION TRAINING: reading recipe/grocery list she self reported using the issued on loan Jim lite for increased contrast and did instruct her to take a picture of recipe on cell phone and enlarge print size and she recalled same. She did trial the floor LED JIM LITE W/ 2x/ magnification for reading print from a catelog at a modified independent level and self reported moderate benefit being provided by the lite on the lamp. She was issued the JIM LITE to use at home for spot reading, writing, and craft activities. 2: SEWING/TRAINING: Introduced a floor Jim lite with 2x magnification and booster round lens offering approx. 3x for threading a needle. Had her trial same with sewing on a button and was at a modified indep. level with same. She was provided needle tower foreman, and pre threaded needles with colored thread already set up in the needles. 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 and recognizing stains on clothing. Did recommend that she use led flashlight, and this was issued to her for use to assist but also instructed to using her cell phone flashlight and/or take picture with cell phone and enlarge print inorder to see the colors/stains w/ improved accuracy. Instructed her to request a goose neck desk lamp and use led full spectrum bulb in lamp for increased contrast with viewing material/clothing items. 4: Adjusting glare: she did find that the light emiliano fit over filters were beneficial for outside and required instruction to consider using same for inside when lighting conditions in her home or other areas were too bright/causing too much glare. She id. recalling same from reading through the patient education materials that were offered to her during previous treatment session. Did trial the dark EMILIANO NOIR 10 fit over filters and issued on loan for borrowing for use outside. Contrast recommendations for walking down steps/up steps were provided and did educate her to consider using the white/black contrast tape but she prefers to walk sideways and hold onto the handrailing. She was willing to take a roll of the tape home, and would have her boyfriend assist her w/ securing on edging of the steps as needed and provided demonstration and verbal instructions to her to ensure her understanding. 5: Selecting clothes, id. minimal difficulty with selecting clothes. Selecting socks/matching socks, issued sock clips to keep socks organized and issued two different styles of clips. 6: Threading a needle/sewing: issued needle tower foreman and self threaded needles and with use of the floor stand JIM ALMANZAR she will practice with same but did not formally have her practice on this date. Provided instruction and education and demonstration and she was familiar w/ the filament needle tower foreman presented. 7: Eating neatly: on the self performance assessment she reported minimal assist/difficulty but w/ further interview she denies difficulty with eating and self feeding and denies difficulty with cutting/spreading foods or seasoning items. Instructed her to put seasoning in to her open hand and then sprinkle on to food. She was instructed to review the patient education materials for EATING OUT for further ideas/recommendations to be considered if needed in t (more content not included)...[facility] 10-17-2022 History of Present illness Narrative* Michelle Perez, OT/L - 10/17/2022 10:38 AM EST Episode Visit Count: 2 Therapist That Will Accept/Oversee The Plan Of Care: MICHELLE PEREZ Start of Care Date: 09/19/22 Onset Date: 11/16/17 Plan of Care Certification Date: 09/19/22 Next Certification Due Date: 11/18/22 Patient Identified by Name and Date of : Yes REHABILITATION AND SPORTS THERAPY OCCUPATIONAL THERAPY TREATMENT NOTE ASSESSMENT: Allie Lynn tolerated the session with no issues. She demonstrated improvements WITH FOLLOWING THROUGH WITH INSTRUCTION/EDUCATION AND NEW ADAPTIVE TECHNIQUES TO AID IN USING VISION MOREEFFICIENTLY WITH IADLS/ADLS. The patient will continue to benefit from ongoing skilled occupationaltherapy to progress toward set goals. PLAN FOR NEXT VISIT: FOLLOW UP ON SELF PERFORMANCE ASSESSMENT FOR ADLS/IADLS AND ADDRESS SAME and ADDRESS ECCENTRIC FIXATION SUBJECTIVE: Has trigger finger release surgery on B hands on November 07 2022, and LEFT cataract removal on 11/15/22 and surgical modification to the LEFT eye (revision) of [place]b. She id. That yesterday she was cooking in microwave and burnt food item d/t not seeing the correct number. She used the Jim lite for increased task lighting to read a recipe, and complete writing/paper work. Pain: Pain Pain Level: 0 OBJECTIVE MEASURES WITH LEVEL OF FUNCTION: TREATMENT: Self-Detention Management: 1: FUNCTIONAL COMMUNICATION TRAINING: reading recipe/grocery list she self reported using the issued on loan Jim lite for increased contrast and did instruct her to take a picture of recipe on cell phone and enlarge print size and she recalled same. She did trial the floor LED JIM LITE W/ 2x/ magnification for reading print from a catelog at a modified independent level and self reported moderatebenefit being provided by the lite on the lamp. She was issued the JIM LITE to use at home for spotreading, writing, and craft activities. 2: SEWING/TRAINING: Introduced a floor Jim lite with 2x magnification and booster round lens offering approx. 3x for threading a needle. Had her trial same with sewing on a button and was at a modified indep. level with same. She was provided needle tower foreman, and pre threaded needles with colored thread already set up in the needles. 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 and recognizing stains on clothing. Did recommend that she use led flashlight, and this was issued to her for use to assist but also instructed to using her cell phone flashlight and/or take picture with cell phone and enlarge print inorder to see the colors/stains w/ improved accuracy. Instructed her to request a goose neck desk lamp and use led full spectrum bulb in lamp for increased contrast with viewing material/clothing items. 4: Adjusting glare: she did find that the light emiliano fit over filters were beneficial for outside and required instruction to consider using same for inside when lighting conditions in her home or other areas were too bright/causing too much glare. She id. recalling same from reading through the patient education materials that were offered to her during previous treatment session. Did trial thePresstlerrCuponzote EMILIANO NOIR 10 fit over filters and issued on loan for borrowing for use outside. Contrast recommendations for walking down steps/up steps were provided and did educate her to consider using the white/black contrast tape but she prefers to walk sideways and hold onto the handrailing. She was willing to take a roll of the tape home, and would have her boyfriend assist her w/ securing on edgingof the steps as needed and provided demonstration and verbal instructions to her to ensure her understanding. 5: Selecting clothes, id. minimal difficulty with selecting clothes. Selecting socks/matching socks, issued sock clips to keep socks organized and issued two different styles of clips. 6: Threading a needle/sewing: issued needle tower foreman and self threaded needles and with use of the floor stand JIM LITE she will practice with same but did not formally have her practice on this date. Provided instruction and education and demonstration and she was familiar w/ the filament needle tower foreman presented. 7: Eating neatly: on the self performance assessment she reported minimal assist/difficulty but w/ further interview she denies difficulty with eating and self feeding and denies difficulty with cutting/spreading foods or seasoning items. Instructed her to put seasoning in to her open hand and thensprinkle on to food. She was instructed to review the patient education materials for EATING OUT for further ideas/recommendations to be considered if needed in the future. 8: COOKING: ++encouraged her to gladis her microwave with the issued white sticky back markings with written in black large print the corresponding number to ensure ease with seeing the buttons after having selected in error wrong setting and burning food item. ++Measuring food, presented her with sample of measuring cups and with bold black markings on them and how to gladis her existing cups at home. She did not require increased magnification or lighting to see same on this date and this will benefit her with measuring wet and dry ingredients. She did report that she had been provided measuring spoons in larger print to use w/ ease. 9: EQUIPMENT THAT SHE WILL BE BORROWING: BLACK AND WHITE CONTRAST MARKING TAPE,- AND DARK EMILIANO FITOVER FILTERS. SHE WAS ISSUED THE FLOOR STAND JIM LITE THAT WAS DONATED TO THIS CLINIC AND TO PRACTICE WITH SAME (HER CREDIT REVIEW ANALYST WILL CARRY THIS IN FOR HER D/T INCREASED WEIGHT IN ORDER TO ENSURE HER SAFETY) AND WILL CONT. TO BORROW THE LIGHT EMILIANO FIT OVER FILTERS. WAS ISSUED ADDITIONAL BOLD LINE PAPER TABLETS, SOCK CLIPS, NEEDLE TELEGRAPH REPEATER MECHANIC, SELF THREADED NEEDLES AND A LED FLASHLIGHT. Skilled Intervention: Skilled judgment in the selection of proper modification for activity of daily living/home management based on clinical presentation, deficits, and needs. Educated the patient regarding recommendations and provided written instruction to facilitate compliance. Provided written instruction (INITIAL OT SESSION) for activities of daily living techniques to facilitate proper performance and compliance. Activity progression based on professional judgement. Reviewed and educated patient on additions/changes for home program FOR HOW TO USE AND FOLLOW THROUGH WITH SETTING UP LIGHTING, WEARING FIT OVER FILTERS, SEWING/THREADING NEEDLE, USING CONTRAST TO ASSIST WITH VISION/REDUCING GLARE, ADAPTIVE TECHN. FOR MEASURING INGREDIENTS, AND HOW TO SORT AND MATCH SOCKS, AND DISCRIMINATE COLORS AND STAINS ON CLOTHES. Billing Self-Care/Home Management Treatment Minutes: 70 Total Treatment Time Minutes (timed/untimed): 70 Michelle Perez OT/L documented in this encounterFirelands Regional Medical Center02-14-2023 History of Present illness Narrative* Ifeoma Davis MD - 10/16/2022 1:12 PM EST Reason for Visit Patient presents with: Physical: preop clearance for surgeries on 11/07/22, 11/15/22 Allie Lynn is a 52 year old female who presents here today for Above Complaints. Health Maintenance HEPATITIS B(1 of 3 - 3-dose series) COVID-19 VACCINE(1) PNEUMOCOCCAL(1 - PCV) HEPATITIS C SCREENING HIV SCREENING DTAP,TDAP,TD(1 - Tdap) SHINGRIX VACCINE(1 of 2) INFLUENZA(1) DEPRESSION ASSESSMENT HPI She is going to have trigger fingers and cataract surgery. 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 No recent history of dizziness, hemoptysis, palpitations. She did have some chest pain which was thought to be from reflux disease. EKG today is normal. Reviewed the test results with patient. Her cholesterols, thyroid, liver kidneys are completely normal. One of the concerns she has today is she has hot flashes, not really complaining of vaginal dryness, she does have some insomnia, feeling irritable and a little depressed. She is more alert today than she was last time. She was taking gabapentin, trazodone, and flexeril,and used to feel sleepy all that time. She stopped the gabapentin after getting injections of the hip by Dr Brush. Stopping flexeril made her have the leg cramps so she is taking the medication. She is also on trazodone, she is a step down with the grogginess. Eye strain is getting really bad for her. Worsening gerd and h/o ulcer in the stomach , on prilosec and she thinks it works, if she stops themedication she gets a recurrence of heart burn. Osteophytes of the glenonumeral joint with some shoulder pain which is bothering her and she hopes that she will get injection from [facility] pain management. On meloxicam but the gfr is normal No problem-specific Assessment & Plan notes found for this encounter. PAST MEDICAL HISTORY Diagnosis Date Abnormal EKG Anemia Angioid streaks Coronary artery disease Fibromyalgia GERD (gastroesophageal reflux disease) Glaucoma HLD (hyperlipidemia) HTN (hypertension) Macular degeneration disease bilateral Mitral prolapse per Mitral valve disorders(424.0) Mitral valve stenosis and aortic valve stenosis Myalgia and myositis, unspecified PXE (pseudoxanthoma elasticum) Rheumatic fever 1995 Rheumatic heart disease, unspecified Unspecified essential hypertension PAST SURGICAL HISTORY Procedure Laterality Date ARTHROSCOPY KNEE DIAGNOSTIC W/WO SYNOVIAL BX SPX 1995 Arthroscopy, knee AVASTIN (BEVACIZUMAB) 1.25MG INTRAVITREAL INJECTION OD (RIGHT EYE) Right x 5 (03/12/17) DELIVERY ONLY 1988, 1991, 1993 , low cervical-x 3 COLONOSCOPY FLX DX W/COLLJ SPEC WHEN PFRMD 06/22/[address] MAXILLOFAC/SINUS 06/29/2015 normal ENDOMETRIAL BX W/WO ENDOCERVIX BX W/O DILAT SPX 02/18/2012 ESOPHAGOGASTRODUODENOSCOPY TRANSORAL DIAGNOSTIC 02/03/2018 EGD INCISION OF EYE, TRABECULECTOMY Right 10/26/2021 LASER SELECTA 2 TRABECULOPLASTY Left 01/08/2020 LASER TRABECULOPLASTY OD (RIGHT EYE) Right 10/26/2021 REMV CATARACT EXTRACAP,INSERT LENS Right 06/25/2022 S BALLOON,UTERINE ABLATION [id number] FAMILY HISTORY Problem Relation Age of Onset Heart Father Age 61 Heart Maternal Grandfather Cancer Paternal Grandmother Breast Cancer Maternal Aunt 55 ovarian cancer Heart Son MS Ovarian cancer Maternal Grandmother Glaucoma No Family History Detached Retina No Family History Macular Degen No Family History Blindness No Family History Amblyopia No Family History Social History Tobacco Use Smoking status: Never Smokeless tobacco: Never Vaping Use Vaping Use: Never used Substance Use Topics Alcohol use: No Drug use: No Past medical history, appointments, medications, allergies reviewed. Pertinent Lab/Diagnostic Studies are reviewed and discussed today Current Outpatient Medications: trimethoprim-polymyxin (POLYTRIM) 10,000 unit- 1 mg/mL ophthalmic solution keTORolac (ACULAR) 0.5 % ophthalmic solution prednisoLONE acetate (PRED FORTE, ECONOPRED PLUS) 1 % ophthalmic suspension mometasone (NASONEX) 50 mcg/actuation nasal spray cyclobenzaprine (FLEXERIL) 10 mg tablet meloxicam (MOBIC) 15 mg tablet atorvastatin (LIPITOR) 40 mg tablet lisinopril-hydroCHLOROthiazide (PRINZIDE,ZESTORETIC) 10-12.5 mg per tablet omeprazole (PRILOSEC) 20 mg capsule conjugated estrogens-medroxyPROGESTERone (PREMPRO) 0.45-1.5 mg per tablet benzonatate (TESSALON PERLES) 100 mg capsule L.acid/B.animalis,bifidum/FOS (PROBIOTIC COMPLEX ORAL) biotin/calcium carbonate (BIOTIN-CALCIUM ORAL) vitamin B complex (B COMPLEX-VITAMIN B12 ORAL) Collagenase powd traZODone (DESYREL) 50 mg tablet gabapentin (NEURONTIN) 100 mg capsule aspirin, enteric coated (ASPIR-LOW) 81 mg EC tablet Review of Systems CONSTITUTIONAL: No fevers, chills night sweats, unintended weight loss CARDIOVASCULAR: No chest pain, dyspnea, palpitations, orthopnea, PND, ankle edema. PULM: No dyspnea, unexplained cough. GI: No dysphagia/odynophagia, problematic reflux, constipation, diarrhea, changes in stool habits, hematochezia, melena. : No new urinary complaints, including dysuria, gross hematuria or pyuria. NEURO: No new balance problems, peripheral weakness/paresthesias or numbness of concern. Physical Exam BP 120/70 (BP Site: Left Arm, BP Position: Sitting, BP Cuff Size: Large Adult) Pulse 102 Temp 36.6 C (97.8 F) Resp 12 Ht 152.4 cm (5') Wt 71.7 kg (158 lb) SpO2 97% BMI 30.86 kg/m General appearance: Well appearing, alert, in no acute distress, well nourished. Skin: Skin color, texture, turgor normal, no suspicious rashes or lesions Head: Normocephalic, no masses, lesions, tenderness or abnormalities Eyes: Anicteric sclera. Pupils are equally round and reactive to light. Extraocular movements are intact. Lungs: Lungs clear to auscultation. No wheezing, rhonchi, rales Heart: RRR without murmur, gallop, or rubs. Extremities: No deformities, edema, skin discoloration, clubbing or cyanosis. Good capillary refill. ASSESSMENT/PLAN: 1. Gastroesophageal reflux disease with esophagitis, unspecified whether hemorrhage - ICD9: 530.11,ICD10: K21.00 (primary diagnosis) - ECG COMPLETE - CONSULT TO GASTROENTEROLOGY 2. Pre-operative clearance - ICD9: V72.84, ICD10: Z01.818 Patient is optimized for procedures as she is low risk. Her blood pressure is well controlled and she has no acute cardiac or pulmonary issues that are ongoing 3. Trigger finger, unspecified finger, unspecified laterality - ICD9: 727.03, ICD10: M65.30 Going to get injections for this 4. Primary hypertension - ICD9: 401.9, ICD10: I10 - good control - Recommended regular aerobic exercise. - Recommend home blood pressure monitoring, to bring results in on next visit - Goal of BP <130/80 5. Mixed hyperlipidemia - ICD9: 272.2, ICD10: E78.2 - good control - Continue current medication. 6. PAD (peripheral artery disease) (HCC) - ICD9: 443.9, ICD10: I73.9 Stable 7. PXE (pseudoxanthoma elasticum) - ICD9: 757.39, ICD10: Q82.8 Stable. Her eyes are her major concern that she is losing vision of what ever is remaining Ifeoma Davis MD documented in this encounterFirelands [facility] Center02-07-2023 History of Present illness Narrative* Brunilda Torres RT(R) - 10/09/2022 12:50 PM EST Radiology Service Progress Note PATIENT NAME: Allie Lynn DATE OF SERVICE: October 09, 2022 TIME: 12:50 PM PATIENT IDENTITY VERIFICATION COMPLETED USING TWO (2) IDENTIFIERS: Name and Date of confirmedby patient verbally. FALL SCREENING: Has the patient had 2 falls in the last year or 1 fall with injury or currently using an Ambulatory Assistive Device (Walker, Cane, Wheelchair, Crutches, etc.)? No PATIENT GENDER DATA: Female. status: : No status: NO. PATIENT RELEVANT IMPLANT DATA REVIEWED: Not Applicable RADIOLOGY DEPARTMENT: General X-ray: Exam(s) Completed: Upper Extremity X- Ray(s): Shoulder, AP / TRUE AP right PERIPHERAL IV DATA: Not applicable SIGNED BY: RT Shakila(R) October 09, 2022 12:50 PM documented in this encounterFirelands Regional Medical Center02-02-2023 Miscellaneous Notes* Telephone Encounter - Clint Brennan RN - 10/04/2022 8:15 AM EST Patient reports she is picking up the Rx today. * Telephone Encounter - Ifeoma Davis MD - 10/03/2022 7:58 PM EST Called in [facility] for the patient Regards, Ifeoma Davis MD * Telephone Encounter - Allei Yoonkvngtoney JOLIE - 10/02/2022 10:26 AM EST Patient calling cancelled her appt today for her physical since she is sick, she felt to weak to come in. Patient said she has sinus infection, headache, congestion one side of her nose, using salinenasal spray, scratchy throat, post nasal drainage, yellow secretions when she blows. Patient said she can not drive and can have friend pick remover rx. Patient is asking for Z[facility] rx to be sent to [facility] please. Please advise documented in this encounterFirelands Regional Medical Center01-31-2023 Miscellaneous Notes* Telephone Encounter - Chana Mao Ma - 10/02/2022 8:44 AM EST Surgery has been scheduled as requested. * Telephone Encounter - Chana Mao Ma - 10/01/2022 4:00 PM EST Surgical request completed for right ring and left middle trigger finger releases at [facility] on 11/02/2022. Post op appointments have been scheduled and mailed to patient. documented in this encounterFirelands Regional Medical Center01-30-2023 History of Present illness Narrative* Massimo Roberts MD - 10/01/2022 2:19 PM EST Massimo Roberts MD Department of Orthopaedics Orthopaedics [address] [facility] [address] Dept: [phone] Dept October 01, 2022 CHIEF COMPLAINT: Established Patient and Pain of the Left Hand and Established Patient and Pain of the Right Hand HPI Patient here today for calcifications left 3rd finger and right 4th finger pain. She reports that she is legally blind and uses her hands to help guide her. She has an EMG scheduled on 10/25/2022,but wanted to be seen before testing completed. She is right hand dominant. 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 ASSESSMENT: M65.341 Trigger ring finger of right hand (primary encounter diagnosis) M65.332 Trigger middle finger of left hand PLAN: WE discussed a number of treatment options. She's also getting a nerve test soon. She's interested in getting the trigger releases done. Ms. Allie Lynn was advised as to contrast therapies and/or to take analgesics/anti-inflammatories as needed and all contraindications were reviewed. OBJECTIVE: Ms. Allie Lynn is a pleasant 52 year old in no apparent distress. Gen:There were no vitals taken for this visit. nl development, non obese, no deformities ENT: Normocephalic, normal hearing, moist mucosa CV: Pulses:Radial= 2+ and symmetric, capillary refill < 2 secs, no peripheral edema/varicosities Skin: no rash, bruising or lesions. Good turgor. Psych: cooperative and appropriate, alert and oriented x 3, good mood and affect. Musculoskeletal: TTP at A1 pulleys of RIght, ring and left middle. Mild diminished sensation in the median nerve distribution. MNCT pos. Imaging: Pending Supporting Subjective Information Below: Past Surgical History: PAST SURGICAL HISTORY Procedure Laterality Date ARTHROSCOPY KNEE DIAGNOSTIC W/WO SYNOVIAL BX SPX 1995 Arthroscopy, knee AVASTIN (BEVACIZUMAB) 1.25MG INTRAVITREAL INJECTION OD (RIGHT EYE) Right x 5 (03/12/17) DELIVERY ONLY 1988, 1991, 1993 , low cervical-x 3 COLONOSCOPY FLX DX W/COLLJ SPEC WHEN PFRMD 06/22/[address] MAXILLOFAC/SINUS 06/29/2015 normal ENDOMETRIAL BX W/WO ENDOCERVIX BX W/O DILAT SPX 02/18/2012 ESOPHAGOGASTRODUODENOSCOPY TRANSORAL DIAGNOSTIC 02/03/2018 EGD INCISION OF EYE, TRABECULECTOMY Right 10/26/2021 LASER SELECTA 2 TRABECULOPLASTY Left 01/08/2020 LASER TRABECULOPLASTY OD (RIGHT EYE) Right 10/26/2021 REMV CATARACT EXTRACAP,INSERT LENS Right 06/25/2022 S BALLOON,UTERINE ABLATION [id number] Medications: Current Outpatient Medications Medication Sig mometasone (NASONEX) 50 mcg/actuation nasal spray Use 2 Sprays in the nose once daily. Rinse mouth after use. cyclobenzaprine (FLEXERIL) 10 mg tablet Take 1 tablet by mouth twice daily as needed. meloxicam (MOBIC) 15 mg tablet Take 1 tablet by mouth once daily. atorvastatin (LIPITOR) 40 mg tablet Take 1 tablet by mouth once daily. lisinopril-hydroCHLOROthiazide (PRINZIDE,ZESTORETIC) 10-12.5 mg per tablet Take 1 tablet by mouth once daily. omeprazole (PRILOSEC) 20 mg capsule Take 1 capsule by mouth once daily. conjugated estrogens-medroxyPROGESTERone (PREMPRO) 0.45-1.5 mg per tablet Take 1 tablet by mouth once daily. L.acid/B.animalis,bifidum/FOS (PROBIOTIC COMPLEX ORAL) Take by mouth. biotin/calcium carbonate (BIOTIN-CALCIUM ORAL) Take by mouth. vitamin B complex (B COMPLEX-VITAMIN B12 ORAL) Take by mouth. traZODone (DESYREL) 50 mg tablet Take 1 tablet by mouth daily at bedtime. gabapentin (NEURONTIN) 100 mg capsule Take 1 capsule by mouth daily at bedtime for 181 days. aspirin, enteric coated (ASPIR-LOW) 81 mg EC tablet Take 1 tablet by mouth once daily. benzonatate (TESSALON PERLES) 100 mg capsule Take 1 capsule by mouth three times daily as needed for cough. (Patient not taking: Reported on 10/01/2022) Collagenase powd No current facility-administered medications for this visit. Allergies: Ultram [Tramadol Hcl], Darvocet A500 [Propoxyphene N-Acetaminophen], Hydrocodone Bitartrate, Nitrofurantoin, Opioids - Morphine Analogues, Propoxyphene, Tramadol, and Vicodin [Hydrocodone-Acetaminophen] ROS: General (negative for fatigue, malaise, weight loss/gain) HEENT (negative for headache, earache, recent vision changes, sinus pain, sore throat) Respiratory (no recent shortness of breath, hemoptysis) CV (negative for chest tightness, palpitations) Musculoskeletal (see HPI) Psych (no depression, anxiety) Massimo Roberts MD documented in this encounterFirelands Regional Medical Center01-30-2023 History of Present illness Narrative* Laura Pimetnel, RT(R) - 10/01/2022 1:30 PM EST Radiology Service Progress Note PATIENT NAME: Allie Lynn DATE OF SERVICE: October 01, 2022 TIME: 2:16 PM PATIENT IDENTITY VERIFICATION COMPLETED USING TWO (2) IDENTIFIERS: Name and Date of confirmedby patient verbally. FALL SCREENING: Has the patient had 2 falls in the last year or 1 fall with injury or currently using an Ambulatory Assistive Device (Walker, Cane, Wheelchair, Crutches, etc.)? No PATIENT GENDER DATA: Female. status: : No status: NO. PATIENT RELEVANT IMPLANT DATA REVIEWED: Not Applicable RADIOLOGY DEPARTMENT: General X-ray: Exam(s) Completed: Upper Extremity X- Ray(s): Hand, bilateral PERIPHERAL IV DATA: Not applicable SIGNED BY: RT Elsa(R) October 01, 2022 2:16 PM documented in this encounterFirelands Regional Medical Center01-27-2023 Miscellaneous Notes* Letter - Mammography Coordinator - 09/28/2022 3:14 PM EST October 01, 2022 PID: [id number] Allie Lynn [address] [place] [address] Dear Ms. Lynn, Your recent breast imaging exam on 09/27/2022 showed a possible finding that requires additional imaging studies for a complete evaluation. Most such findings are probably benign (not cancer). If you have a healthcare provider who ordered/prescribed your screening mammogram: Please call [phone] or [phone]: [phone] to schedule an appointment for your additional imaging (if youhave not already done so). If you DO NOT have a healthcare provider (ie you did not have an order/prescription for your screening mammogram): Please call to schedule an appointment for your additional imaging (if you have not already done so). You must have an order/prescription from your physician when calling to schedule your appointment. If your order/prescription is not electronic, you must bring the hard copy with you on the day of your exam to avoid delays. Your imaging studies and reports are kept on file at [facility] as part of your permanent medical record, and are available for your continuing care. Thank you for allowing us to help in meeting your health care needs. Sincerely, Dr. Osei Interpreting Radiologist [facility] (Additional imaging) documented in this encounterFirelands Regional Medical Center01-26-2023 History of Present illness Narrative* SidKimberley michaud MammGetThis - 09/27/2022 1:10 PM EST Radiology Service Progress Note PATIENT NAME: Allie Lynn DATE OF SERVICE: September 27, 2022 TIME: 1:05 PM PATIENT IDENTITY VERIFICATION COMPLETED USING TWO (2) IDENTIFIERS: Name and Date of confirmedby patient verbally. FALL SCREENING: Has the patient had 2 falls in the last year or 1 fall with injury or currently using an Ambulatory Assistive Device (Walker, Cane, Wheelchair, Crutches, etc.)? No PATIENT GENDER DATA: Female. status: : No status: NO. PATIENT RELEVANT IMPLANT DATA REVIEWED: Not Applicable RADIOLOGY DEPARTMENT: Mammography PERIPHERAL IV DATA: Not applicable SIGNED BY: Rubin Carlton September 27, 2022 1:05 PM documented in this encounterFirelands Regional Medical Center01-24-2023 History of Present illness Narrative* Cynthia Ramos MD - 09/25/2022 3:17 PM EST Tmax 28 , 28 03/10/2019 ; Pachy 543 , 540 Family history Gonioscopy 03/10/2019 PTM OU with 2+ TMP Lasers and surgeries OD multiple injections; SLT 180 (inferior) 01/15/2020 (IOP 28--> 21); SLT superior 180 05/09/2021 (IOP 26-->19); TBX 10/26/2021 (IOP 24) OS multiple injections; SLT 180 (inferior angle) 01/08/2020 (IOP 28-->21); SLT superior 180 05/09/2021 (IOP 23-->22); TBX OS 09/14/2021 (IOP 29) Ocular Medication Intol, Non-efficacy, barriers cosopt - not effective Timolol - not effective cosopt ? Effectiveness rhopressa ineffective Acetazolamide/nepataze - SOB, fatigue, weight loss, memory issues Generic brimonidine 0.2% and alphagan-P - dermatitis and body rash (no symptoms with alphagan-P) ALHAJI allergy Dorzolamide-timolol dermatitis body rash Currently using emycin ointment bedtime OD Refresh as needed Testing -- HVF 04/07/2019 OD central scotoma; OS cecocentral scotoma, not centered, low reliability -- OCT 03/10/2019 OD mod sup>mild inf thinning, temp artifact; OS mild sup/inf thinning -- GCA 03/10/2019 thinning OU/retinal atrophy Exposed suture trimmed OD - cipro used pre and post S/p PEIOL OD and iridotomy suturing by Dr. Eugene - aim plano ++ anisometropia and tearing from exuberant bleb extending nasally and temporally Offer PEIOL OS and bleb revision (bleb reduction) needs block Cataract Presurgical Documentation Cataract: Left eye (OS) Current Visual Acuity Right Eye Distance SC 20/200 Left Eye Distance SC CF @ 2' ecc Glare Testing: Visual Function: Allie Lynn states that the decline in vision from the cataract impedes her abilities as listed in the HPI, as well as other activities of daily living. Allie Lynn has confirmed that she is no longer able to function adequately on a day-to-day basisbecause of her current visual condition. Further, it is my medical opinion that the cataract is the primary cause, or at least a significantly contributory cause of her visual dysfunction. With uncomplicated cataract surgery and lens implantation, it is my expectation that her visual function and quality of life will improve, significantly. The risks, benefits, alternatives, personnel and complications of cataract surgery with lens implantation were discussed with Allie Lynn in detail. she appeared to understand and asked that I proceed with plans for surgery. Specific considerations reviewed particular to this case: -- guarded prognosis due to glaucoma damage -- risk of IOP spike post procedure -- discussed risk of bleb scarring with PEIOL and bleb truncation The patient was offered a surgery/procedure at a [facility] facility. The surgeon/proceduralist and patient have discussed in detail the risk of exposure to and/or potential harm posed by the COVID-19 virus with having a surgery/procedure at this time versus the risk of delaying the surgery/pr ocedure. It is not possible to know either the risk of delaying the surgery or procedure or chance of getting an infection with perfect accuracy, but a joint decision was made between the patient andthe surgeon/proceduralist to proceed at this time with the scheduled surgery/procedure as indicatedon the consent form. Surgical plan: OS [id number] AIM plano OS Toric standard Anesthesia: MAC/topical Contact lens wear: NO Previous refractive surgery: NO Preferred office: [facility] Intracameral phenylephrine and vigamox Special notes * block for bleb reduction surgery Drops for Surgery: Polytrim (clear/white) OR Ciprofloxacin (mora) 1 drop to OPERATIVE EYE 4 x daily (begin 2 days BEFORE surgery, including morning of surgery, and continue AFTER surgery) Prednisolone (pink or white) 1 drop to OPERATIVE EYE 4 x daily (begin 2 days BEFORE surgery, including morning of surgery, and continue AFTER surgery) Ketorolac (saunders) 1 drop to OPERATIVE EYE 4 x daily (begin 2 days BEFORE surgery, including morning of surgery, and continue AFTER surgery) Continue to use all glaucoma drops, if applicable, including the morning of surgery RTC PEIOL and bleb reduction LEFT EYE I have confirmed and edited as necessary the relevant ophthalmic history, ROS, and the neuro exam findings as obtained by others. I have seen and examined this patient. I have discussed the case and the management of this patient's care with the Resident/Fellow/Nuclear Physicist, if applicable. I also have reviewed and agree with the assessment and plan as stated above and agree with all of its relevant components. Cynthia Ramos MD September 25, 2022 3:18 PM Exposed suture trimmed OD - cipro used pre and post S/p PEIOL OD and iridotomy suturing - aim plano ++ anisometropia and tearing from exuberant bleb extending nasally and temporally Offer PEIOL OS and bleb revision (bleb truncation) needs block I have confirmed and edited as necessary the relevant ophthalmic history, ROS, and the neuro exam findings as obtained by others. I have seen and examined this patient. I have discussed the case and the management of this patient's care with the Resident/Fellow/Nuclear Physicist, if applicable. I also have reviewed and agree with the assessment and plan as stated above and agree with all of its relevant components. Cynthia Ramos MD September 25, 2022 3:18 PM documented in this encounterFirelands [facility] Center01-18-2023 NoteHNO ID: [id number] Author: Michelle Perez, OT/L Service: ? Author Type: Occupational Therapist Type: Progress Notes Filed: 09/19/2022 5:47 PM Note Text: Episode Visit Count: 1 Therapist That Will Accept/Oversee The Plan Of Care: MICHELLE PEREZ Start of Care Date: 09/19/22 Onset Date: (2005 WAS ASSESSED INITIALLY AND SAW A RETINAL SPECIALIST) Plan of Care Certification Date: 09/19/22 Next Certification Due Date: 11/18/22 Patient Identified by Name and Date of : Yes REHABILITATION AND SPORTS THERAPY OCCUPATIONAL THERAPY LOW VISION EVALUATION PLAN OF CARE: Assessment: Allie Lynn presents with the chief complaint of low vision for completing required IADLS AND FUNCTIONAL COMMUNICATION. She presents with impairments of VISUAL ACUITY, LOSS OF CENTRAL CHRISTOPHER AND DIFFICULTY WITH GLARE AND REDUCED CONTRAST. She may benefit from skilled occupational therapy services to improve SKILL LEVEL FOR FUNCTIONAL COMMUNICATION, IADLS AND SAFETY WITH SAME. Allie Lynn appears to be a good candidate for eccentric viewing training. Prognosis: Good Good due to: current objective clinical presentation;positive past response to therapy;within-session changes;good support system/ coping skills Goals for Episode of Care created on 09/19/22 through 12/18/22 Patient will identify adaptations for contrast, lighting, and organization / labeling, in their kitchen, bedroom, bathroom, office, living room, that will best suit their lifestyle, and be independent with use. Patient will identify adaptive tools for: meal preparation, self-care, and writing which will best suit their lifestyle, and will be independent with use. Patient will understand concepts of compensation for visual impairments, so that they may independently problem solve specific issues in order to improve independent functioning in daily routine. Patient will learn techniques to educate family /friends on their visual function, so that they will be able to more effectively interact with him or her. Patient will be independent with sighted guide techniques, including ability to train an inexperienced guide for emergency situations. Planned Interventions, Frequency, and Duration: Current Frequency: 1x every other week Duration: 12 weeks Total Number of Visits Planned: 6 Planned Treatment Interventions: Therapeutic exercise (29282);Self-chcf management (22026);Patient/Family/Caregiver Education;Functional training;Community / Work Reintegration PLAN FOR NEXT VISIT: FOLLOW UP ON SELF PERFORMANCE ASSESSMENT FOR ADLS/IADLS AND ADDRESS SAME Patient demonstrates good understanding of plan of care and treatment. The above goals and plan of care were discussed and agreed upon by patient/family. SUBJECTIVE: Allie Lynn is a 52 year old female seen today for low vision aids/training to improve using vision more efficiently and cane training and orientation mobility training. Functional Limitations: (increased difficulty with glare, central vision loss affecting reading/writing/recognizing faces, difficulty w/ reading/seeing signs when out in community, difficulty w/thoroughness for cleaning, struggling with seeing dials on appliances, diff. w/ color) SHE IS HOPING THAT WHEN SHE GETS HER LEFT EYE CATARACT REMOVED SHE WILL BE ABLE TO PROCURE NEW SUNGLASSES TO ASSIST WITH REDUCING GLARE. ID. THAT LOST HER PRESCRIPTION SUNGLASSES. Prior Level of Function: (has been struggling for over 17 years, but noting more difficulty d/t waiting on getting L cataract extracted) Patient Goals: I need to know how to do things more independently, on my own and gladis things and using lighting Intake Information: Direct Access Previous Treatment: (was seen by low vision referring hole digger truck driver, Dr. Mason recently. 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 She will be moving in w/ her boyfriend in near future (currently selling he home).) Assistance Available: (family, and friends) Home Type: (mobile home/one level. Did not assess steps to enter home.) Equipment Owned: (has a video magnifier issued by [employer] when working, portable video magnifier but lost cord/not id. premorbid assist with same; uses computer to pay bills onl (more content not included)...[facility]01-18-2023 History of Present illness Narrative* Michelle Perez, OT/L - 09/19/2022 12:33 PM EST Episode Visit Count: 1 Therapist That Will Accept/Oversee The Plan Of Care: MICHELLE PEREZ Start of Care Date: 09/19/22 Onset Date: (2006 WAS ASSESSED INITIALLY AND SAW A RETINAL SPECIALIST) Plan of Care Certification Date: 09/19/22 Next Certification Due Date: 11/18/22 Patient Identified by Name and Date of : Yes REHABILITATION AND SPORTS THERAPY OCCUPATIONAL THERAPY LOW VISION EVALUATION PLAN OF CARE: Assessment: Allie Lynn presents with the chief complaint of low vision for completing required IADLS AND FUNCTIONAL COMMUNICATION. She presents with impairments of VISUAL ACUITY, LOSS OF CENTRAL CHRISTOPHER AND DIFFICULTY WITH GLARE AND REDUCED CONTRAST. She may benefit from skilled occupational therapy services to improve SKILL LEVEL FOR FUNCTIONAL COMMUNICATION, IADLS AND SAFETY WITH SAME. Allie Lynn appears to be a good candidate for eccentric viewing training. Prognosis: Good Good due to: current objective clinical presentation;positive past response to therapy;within-session changes;good support system/ coping skills Goals for Episode of Care created on 09/19/22 through 12/18/22 Patient will identify adaptations for contrast, lighting, and organization / labeling, in their kitchen, bedroom, bathroom, office, living room, that will best suit their lifestyle, and be independent with use. Patient will identify adaptive tools for: meal preparation, self-care, and writing which will best suit their lifestyle, and will be independent with use. Patient will understand concepts of compensation for visual impairments, so that they may independently problem solve specific issues in order to improve independent functioning in daily routine. Patient will learn techniques to educate family /friends on their visual function, so that they will be able to more effectively interact with him or her. Patient will be independent with sighted guide techniques, including ability to train an inexperienced guide for emergency situations. Planned Interventions, Frequency, and Duration: Current Frequency: 1x every other week Duration: 12 weeks Total Number of Visits Planned: 6 Planned Treatment Interventions: Therapeutic exercise (03417);Self-chcf management (62906);Patient/Family/Caregiver Education;Functional training;Community / Work Reintegration PLAN FOR NEXT VISIT: FOLLOW UP ON SELF PERFORMANCE ASSESSMENT FOR ADLS/IADLS AND ADDRESS SAME Patient demonstrates good understanding of plan of care and treatment. The above goals and plan of care were discussed and agreed upon by patient/family. SUBJECTIVE: Allie Lynn is a 52 year old female seen today for low vision aids/training to improve using vision more efficiently and cane training and orientation mobility training. Functional Limitations: (increased difficulty with glare, central vision loss affecting reading/writing/recognizing faces, difficulty w/ reading/seeing signs when out in community, difficulty w/thoroughness for cleaning, struggling with seeing dials on appliances, diff. w/ color) SHE IS HOPING THAT WHEN SHE GETS HER LEFT EYE CATARACT REMOVED SHE WILL BE ABLE TO PROCURE NEW SUNGLASSES TO ASSIST WITH REDUCING GLARE. ID. THAT LOST HER PRESCRIPTION SUNGLASSES. Prior Level of Function: (has been struggling for over 17 years, but noting more difficulty d/t waiting on getting L cataract extracted) Patient Goals: I need to know how to do things more independently, on my own and gladis things and using lighting Intake Information: Direct Access Previous Treatment: (was seen by low vision referring hole digger truck driver, Dr. Mason recently. 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 She will be moving in w/ her boyfriend in near future (currently selling he home).) Assistance Available: (family, and friends) Home Type: (mobile home/one level. Did not assess steps to enter home.) Equipment Owned: (has a video magnifier issued by [employer] when working, portable video magnifier but lost cord/not id. premorbid assist with same; uses computer to pay bills online, currently seeking out set up with IVORY martinez on IPHONE, did see low vision hole digger truck driver for LV equi) Transportation: (relies on alternative transportation/family and friends) Pain Level: 0 OBJECTIVE MEASURES WITH LEVEL OF FUNCTION: VISUAL SCREENING: SHE IS WAITING TO GET HER LEFT EYE CATARACT REMOVED IN NEAR FUTURE. A RESULT, WAITING FOR NEW PRESCRIPTION GLASSES ONCE PROCEDURE IS COMPLETED. See below documentation for scotoma awareness and using eccentric fixation/viewing to improve usingvision more effiently. Current Activities Of Daily Living Feeding: Independent Grooming: Minimal Assistance (DIFFICULTY WITH HAIR, AND MAKEUP DISCRIMINATING COLORS) Bathing Upper Body: Independent Bathing Lower Body: Independent Dressing Upper Body: Independent Dressing Lower Body: Independent (USES BACKGROUND CONTRAST FOR DISCRIMINATING COLORS) Toileting: Independent Instrumental Activities of Daily Living Meal/Beverage Prep: Moderate Assistance Cooking: Minimal Assistance (ID. THAT SHE STRUGGLES WITH FOOD PREPARATION. USES LARGE PRINT MEASURING SPOONS.) Cleaning: Minimal Assistance (DIFFICULTY SEEING DIRT ON FLOOR) Laundry: Minimal Assistance Medication Management with Strategies: (DIFFICULT WITH SEEING DIALS) Shopping: Moderate Assistance (ID. HAVING DIFFICULTY WITH SEEING OVERHEAD SIGNS. DIFFICULTY LOCATING SOME ITEMS AND STRUGGLES WITH OVERHEAD GLARE WHEN LOOKING UP AT SIGNS.) Money Management: Modified Independent (ID. USING COMPUTER TO SEE SCREEN. SHE KEEPS HER DESK ORGANIZED AND DOES SEEK OUT ASSISTANCE FROM FRIENDS/BOYFRIEND NEEDED.) Driving: (USES ALTERNATIVE TRANSPORTATION) Current Functional Mobility Functional Mobility: (SUPERVISION WHEN OUT IN COMMUNITY, MODIFIED INDEP. WHEN AMBULATING AT HOME.) Sit To Stand: Independent Stand To Sit: Independent FUNCTIONAL VISUAL HISTORY: In the past Allie Lynn read for enjoyment moderately and work moderately. Presently she reads infrequently using VIDEO MAGNIFIER, AND CELL PHONE to assist. The patient reports having difficulty WITH READING MENUS WHEN OUT IN PUBLIC, READING OVERHEAD SIGNS, ETC. WHEN OUT IN COMMUNITY AND HAS TO RELY ON OTHERS. SHE LISTENS TO AUDIO BOOKS ON HER PHONE (HARJINDER) READING: This patient: Never reads only the large headlines of newspapers or magazines. Never reads ordinary news or magazine print. Frequently reads small print WITH HER CCTV FOR MAIL, DIRECTIONS, RECIPES, ETC.. Frequently reads bills, or writes checks BUT USES COMPUTER (ONLINE) BANKING, AND REQUIRES A FOR SIGNING HER NAME OR FILLING OUT A CHECK. Frequently engages in avocational tasks requiring close vision such as cooking. ++plays cards and games, to be further assessed. ++has trouble finding objects off a shelf, to be further assessed. Occasionally has trouble negotiating steps and curbs in daylight and night time. Id. That she has to use increased task lighting for close work, craft activities and will further assess needs for: kitchen , office/living room , bedroom , and in community. PATIENT'S MOST RECENT EYE EXAM REVEALS: Recalling report from referring low vision hole digger truck driver's report: RIGHT EYE: 20/250 DISTANCE AND NEAR 6.3M LEFT EYE: CF @2', and near 1.6M Both Near: 1.6M. Patient is waiting for LEFT eye cataract extraction and currently is not able to wear corrective glasses. Patient id. Losing her prescription sunglasses and only has wrap around dark saunders filters. Pt. Is applying for financial resources for recommended optical aids/devices from her local [employer] in [facility] but needs prices from two providers and was provided contact information from[employer] and [employer] to assist with devices that referring low vision hole digger truck driver (Dr. Mason) provided to her at time of her assessment. PSYCHOSOCIAL ASSESSMENT: Alert & Oriented X 4. Affect: appropriate, reasonably positive mood , and hyper verbal/tangential. Memory: no gross deficits observed. Concentration: WFL. Language: verbal and reading w/ appropriate use of adaptive equipment. Fund of Knowledge: High Patient Reports her: Motivation is High. Activity level is High. [place] for ADL is: Average. Life satisfaction is: Average.Patient verbalizes techniques and activities that she is actively involved in to assist w/ adjustment to disability. Impact of visual impairment is High on ability to function. Cataracts: yes OS Glaucoma: Yes. OU FUNCTIONAL SCANNING PERFORMANCE: PREFERRED RETINAL LOCUS: For near objects, such as faces or television has to position self close to tv, and struggles with recognizing faces. Scotoma appears to be to the RIGHT SUPERIOR QUADRANT of the fovea and minimally affects the ability to recognize more of the numbers on face of clock during screening. Education: Education Learning Preferences: Demonstration;Explanation;Performance;Printed Materials Barriers: Visual Deficit Learning/educational needs: (ADAPTIVE TECHNIQUE TRAINING) Education Provided: Yes, see treatment interventions for education provided Education Provided To: Patient Education Mode/Type: Other: See Comment (DEMONSTRATION, PRACTICE, RETURN DEMONSTRATION, WRITTEN PATIENT EDUCATION HANDOUTS) Response to Education/Teach Back: States/Identifies;Return Demonstration TREATMENT: Evaluation Evaluation Self-Detention Management: 1: GROOMING: she was able to understand instructions of how to gladis her makeup containers and issued sticky back foam w/ black print in order to increase her ability to recognize preferred colors on makeup container. Did recommend a 5x and 10x goose neck magnified mirror but not available this dateand will provide next tx session. 2: COOKING: issued white and black sticky back foam with demonstration of how to gladis dials for appliances for her appliances and her boyfriend's home which she will be moving in to in near future. 3: TO REDUCE GLARE: issued LIGHT EMILIANO FIT OVER FILTERS to wear as needed to decrease glare especially when out in community (w/ overhead lighting and being required to look up at signs). she will borrow and return back to next tx session. 4: LIGHTING WITH FOLDING JIM LITE was demonstrated, purpose of using same for increase contrast fornear task performance, and that it is portable and can be taken w/ her when eating out to see plate/items w/ improved skill. She will borrow same and return back to next tx session. 5: FUNCTIONAL COMMUNICATION/WRITING: issued large print calendar, black gel and black 20/20 pen andbold line paper tablets and had her write on same with marked improved skill and self reporting same. Issued after practicing using a signature guide for signing her name and to keep her wallet and use as needed. 6: COMMUNITY SUPPORT/RESOURCES: provided her with [facility] resources for support ([employer] [place] [employer] AND [employer]) and she is already set up with alternative transportation/resources. 7: ISSUED SELF PERFORMANCE ASSESSMENT FOR ADLS/IADLS TO COMPLETE AND RETURN TO NEXT TX SESSION IN ORDER TO FURTHER ADDRESS SKILL AREAS FOR TRAINING. 8: PROVIDED HER WITH COMPREHENSIVE WRITTEN DOCUMENTATION FOR MODIFYING ENVIRONMENT WITH LIGHTING, CONTRAST, REDUCING PATTERNS, EATING OUT/SELF FEEDING TECHNIQUES, GUIDING TECHNIQUES AND FURTHER RESOURCES FOR TALKING BOOKS/PERIODICALS, ISSUED TWO PRODUCT CATALOGS TO REFER TO FOR IDEAS OF ADAPTIVE EQUIPMENT Skilled Intervention: Skilled judgment in the selection of proper modification for activity of daily living/home management based on clinical presentation, deficits, and needs. Physical assistance was provided during education for modifications and patient safety. Educated the patient regarding recommendations and provided written instruction to facilitate compliance. Provided written instruction for activities of daily living techniques to facilitate proper performance and compliance. Reviewed patient specific diagnosis in relation to activities of daily living/home management. Billing * Evaluation Moderate Complexity: 1 Unit Therapeutic Exercise Treatment Minutes: 5 Self-Care/Home Management Treatment Minutes: 30 Total Treatment Time Minutes (timed/untimed): 75 Michelle Perez OT/L documented in this encounterFirelands [facility] Center01-18-2023 Miscellaneous Notes* Telephone Encounter - Barbie Alicea Pss - 09/19/2022 9:50 AM EST Per Ilsa at Occupational Therapy she does not help with white tsai/mobile training. She states shesent you a message. She states she will call patient and explain this to her and see if she still wants to come in for her appointment today. documented in this encounterFirelands [facility] Medical Center12-15-2022 History of Present illness Narrative* Wolf Mason, OD - 08/16/2022 1:45 PM EST Blindness right eye category 3, blindness left eye category 4 (primary encounter diagnosis) Pseudophakia, right eye Combined 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 cataract, left eye Hyperopia of right eye Recommend Mathew portable video magnifier for reading fine print and writing. Recommend EyeDaptic Eye4 for distance viewing, mobility, TV, recognizing faces. (Backup = Brandan 2.8x telescope for distance and Mobilux 10D rect and stand for near) Consulted OT (Litzy GUY) for orientation and mobility training. Recommend getting white cane to assist with ambulation and to identify her as visually impaired. Reviewed lens size and strength relationship, working distances, and instructed in the use of low vision aids. Identified preferential locus of vision and instructed in eccentric fixation. (Best vision is superior to patient of fixation) Demonstrated computer modifications and kelin for smartphone that allows for magnification, reads text, and identifies currency, colors, and people. Discussed activities of daily living and recommended non-optical aids for assistance. Recommended local resources for support groups and agencies. Return as needed for low vision care. Time spent with patient included over 50% counseling, reviewing and demonstrating various lens combinations and conditions for low vision, including but not limited to the discussion of magnifiers and lighting. Attending Note The majority of the visit was spent counseling and/or coordinating care for the patient. Counseled the patient regarding visual impairment. Total face to face time was 75 minutes. Signature: Wolf Mason OD Date: 08/16/2022 Time: 1:45 PM Dilation not repeated today, recently performed by referring doctor. Continue care as directed by referring doctor. Return as needed LV exam documented in this encounterFirelands Regional Medical Center12-13-2022 Miscellaneous Notes* Telephone Encounter - Starla Mckeon LPN - 08/14/2022 9:23 AM EST Spoke with pt and information listed below given. Pt verbalizes understanding. Starla Mckeon LPN * Telephone Encounter - David Anna APRN.CNP - 08/13/2022 1:17 PM EST Please let patient know I have sent in a prescription for nasonex/mometasone nasal spray. Hopefullythis will be more affordable for her. Thank you David Anna APRN.DEBORAH * Telephone Encounter - Starla Mckeon LPN - 08/13/2022 9:36 AM EST Spoke with pt and she states she was on Flonase and they thought she may of become immured to it and that was why they suggested Nasacort but this is to expensive. Wondering if there is something else she could try. Please advise pt. Starla Mckeon LPN * Telephone Encounter - David Anna APRN.CNP - 08/10/2022 3:38 PM EST Flonase was ordered a few months ago. Was this too pricey? If not I can reorder this. Thank you David Anna APRN.CNP * Telephone Encounter - Lea Roberts Pss - 08/10/2022 2:28 PM EST Patient has been identified by name and date of : Yes Last office visit in this department: 06/04/2022 RX INSTRUCTIONS: Patient asking for a refill of something similar to Nasacort. After insurance, it's still to priceyfor patient. Patient aware RX escripted to mail away pharmacy. No need to notify patient. Patient phones requesting refills as follows: Requested Prescriptions Pending Prescriptions Disp Refills cyclobenzaprine (FLEXERIL) 10 mg tablet 180 tablet 3 Sig: Take 1 tablet by mouth twice daily as needed. Please review and advise. Lea Roberts Pss documented in this encounterFirelands [facility] Center11-22-2022 History of Present illness Narrative* Jonathon Eugene MD - 07/24/2022 1:40 PM EST Assessment and Plan 1. Photopsia of both eye -sees rainbows when she lifts her eyelids and stares at window with sunlight out -feels that it improved with painting over the superior peripheral iridotomy left eye -right eye is better seeing eye per patient 2. Primary open angle glaucoma (POAG) of both eyes, severe stage 3. 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 History of corneal ulcer left eye -corneal peripheral ulcer left eye - autoimmune? Herpes simples virus? -Anti-nuclear antibody and Herpes simples virus 02/27/22--> negative -resolved Plan: -3-month dissolvable collagen plug size 0.2 placed upper and lower lids left eye 01/30/22 -off drops per protocol -geldrops both eyes -ointment at bedtime both eyes -precautions -follow-up Dr. Torres for glasses and Dr. Ramos (ok to further trim knot?) -me in 3 months / sooner as needed I have confirmed and edited as necessary the relevant ophthalmic history, ROS, and the neuro exam findings as obtained by others. I have seen and examined Allie Lynn. I have discussed the case and the management of this patient's care with the Resident/Fellow, if applicable. I also have reviewed and agree with the assessment and plan as stated above and agree withall of its relevant components. Jonathon Eugene MD documented in this encounterFirelands Regional Medical Center11-22-2022 Miscellaneous Notes* Telephone Encounter - Aleksandra Min LPN - 07/24/2022 11:21 AM EST Patient notified. Verbalized understanding. * Telephone Encounter - Ifeoma Davis MD - 07/23/2022 6:53 PM EST I sent this to Ifeoma Hinson MD * Telephone Encounter - Melly Prado [facility] - 07/23/2022 12:10 PM EST Allie Lynn is calling Ifeoma Dvais MD today she stated [facility], the provider told her maybe her body has developed resistance to the Flonase since she has used it twice aday for many years. She stated that he advised her to ask PCP if she can change nasal spray to Nasacort instead. Please call patient either way today, she is out of this medication, and needs somethin g today. Patient has been identified by name and birthdate. Duration of symptoms: N/A Person calling: self Call patient at: at home [phone] (home) [phone] (cell) Was an appointment scheduled: No Closing statement: Results or non-symptom based questions: Thank you for calling [facility], your call will be returned within the next business day. Melly Prado Pss documented in this encounterFirelands Regional Medical Center11-21-2022 Miscellaneous Notes* Telephone Encounter - Celeste Cardona LPN - 07/23/2022 3:00 PM EST Patient has been identified by name and date of : Yes Patient phones for refill(s): Requested Prescriptions Pending Prescriptions Disp Refills meloxicam (MOBIC) 15 mg tablet 90 tablet 3 Sig: Take 1 tablet by mouth once daily. atorvastatin (LIPITOR) 40 mg tablet 90 tablet 3 Sig: Take 1 tablet by mouth once daily. lisinopril-hydroCHLOROthiazide (PRINZIDE,ZESTORETIC) 10-12.5 mg per tablet 90 tablet 3 Sig: Take 1 tablet by mouth once daily. omeprazole (PRILOSEC) 20 mg capsule 90 capsule 3 Sig: Take 1 capsule by mouth once daily. Date of last office visit in primary care: 06/04/2022 Last 2 Encounter Wt Readings: Date: Wt: 06/25/2022 70.3 kg (155 lb) 06/20/2022 70.3 kg (155 lb) Previous labs/tests for medication: Cholesterol: HDL Cholesterol (mg/dL) Date Value 08/15/2021 56 LDL Cholesterol (mg/dL) Date Value 08/15/2021 109 ALT (U/L) Date Value 08/15/2021 15 Non HDL Cholesterol (mg/dL) Date Value 08/15/2021 133 Blood Pressure: BUN (mg/dL) Date Value 08/15/2021 19 Sodium (mmol/L) Date Value 08/15/2021 138 Last 1 Encounter BP Readings: Date: BP: 06/25/2022 102/64 Please advise. Thank you. Celeste Cardona LPN * Telephone Encounter - Melly Prado Pss - 07/23/2022 12:02 PM EST Patient has been identified by name and date of : Yes Requested Prescriptions Pending Prescriptions Disp Refills meloxicam (MOBIC) 15 mg tablet 90 tablet 3 Sig: Take 1 tablet by mouth once daily. atorvastatin (LIPITOR) 40 mg tablet 90 tablet 3 Sig: Take 1 tablet by mouth once daily. lisinopril-hydroCHLOROthiazide (PRINZIDE,ZESTORETIC) 10-12.5 mg per tablet 90 tablet 3 Sig: Take 1 tablet by mouth once daily. omeprazole (PRILOSEC) 20 mg capsule 90 capsule 3 Sig: Take 1 capsule by mouth once daily. RX INSTRUCTIONS: Patient aware RX escripted to mail away pharmacy. No need to notify patient. Melly Adams documented in this encounterFirelands Regional Medical Center11-21-2022 Miscellaneous Notes* Telephone Encounter - Vanessa Cooley RN - 07/23/2022 12:41 PM EST Patient last seen for annual exam on 12/04/21. Vanessa Cooley RN * Telephone Encounter - Melly Prado Pss - 07/23/2022 12:16 PM EST Patient has been identified by name and date of : Yes Requested Prescriptions Pending Prescriptions Disp Refills conjugated estrogens-medroxyPROGESTERone (PREMPRO) 0.45-1.5 mg per tablet 84 tablet 2 Sig: Take 1 tablet by mouth once daily. RX INSTRUCTIONS: Patient aware RX escripted to mail away pharmacy. No need to notify patient. Melly Adams documented in this encounterFirelands Regional Medical Center11-03-2022 Miscellaneous Notes* Telephone Encounter - Dara Valdez RN - 07/05/2022 8:41 AM EDT Called patient and notified that provider sent medication to [facility]. Patient voiced understanding. Dara Valdez RN * Telephone Encounter - Clint Brennan RN - 07/04/2022 4:11 PM EDT Patient asking pcp to send Rx to [facility]. See message below. * Telephone Encounter - Dara Valdez RN - 07/04/2022 8:47 AM EDT Patient calls and states that antibiotic that she has been put on has not been helping her. Patientis asking for a new prescription antibiotic, specifically she is asking for a z pack. Patient states that she needs to quit coughing do to eye surgery. Please review and advise, Dara Valdez RN documented in this encounterFirelands Regional Medical Center11-01-2022 Instructions* Patient Instructions* Jonathon Eugene MD - 07/03/2022 1:14 PM EDT -prednisolone (white or pink cap) four times a day x 1 week, then three times a day for 1 week, then twice a day for 1 week, then once a day for 1 week, then stop -vigamox (mora cap) four times a day for 1 week, then stop documented in this encounterFirelands Regional Medical Center11-01-2022 History of Present illness Narrative* Jonathon Eugene MD - 07/03/2022 1:12 PM EDT Assessment and Plan 1. Photopsia of both eye -sees rainbows when she lifts her eyelids and stares at window with sunlight out -feels that it improved with painting over the superior peripheral iridotomy left eye -right eye is better seeing eye per patient 2. Primary open angle glaucoma (POAG) of both eyes, severe stage 3. 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 History of corneal ulcer left eye -corneal peripheral ulcer left eye - autoimmune? Herpes simples virus? -Anti-nuclear antibody and Herpes simples virus 02/27/22--> negative -resolved Plan: -3-month dissolvable collagen plug size 0.2 placed upper and lower lids left eye 01/30/22 -prednisolone 4-3-2-1-0 right eye -vigamox four times a day right eye for 1 week then stop -geldrops left eye -ointment at bedtime left eye -precautions -follow-up 3 weeks / sooner as needed I have confirmed and edited as necessary the relevant ophthalmic history, ROS, and the neuro exam findings as obtained by others. I have seen and examined Allie Lynn. I have discussed the case and the management of this patient's care with the Resident/Fellow, if applicable. I also have reviewed and agree with the assessment and plan as stated above and agree withall of its relevant components. Jonathon Eugene MD documented in this encounterFirelands Regional Medical Center10-28-2022 History of Present illness Narrative* Valentine Torres, OD - 06/29/2022 12:01 PM EDT 1. Photopsia Intact retina upon dilated fundus examination Patient vision HM today (compared to 20/100 06/26/22) Right eye pupil non-reactive but dilated well OCT macula-unchanged with +atrophy 2. Pseudophakia, right eye Continue post-op drops as directed Minimal cell/flare Good IOL positioning Patient very bothered by minimal exposed suture 12 o'clock outside limbus- recommended gel drops 2-3times daily 3. Combined 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 cataract, left eye Monitor 4. Primary open angle glaucoma (POAG) of both eyes, indeterminate stage Continue under care if Dr. Ramos Patient very bothereed 5. 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 No macular fluid on OCT. Seen by Dr. Grant Plan: f/u with Dr. Grant as planned Follow-up as scheduled with Dr. Eugene in 4 days Valentine Torres, OD June 29, 2022 12:01 PM documented in this encounterFirelands Regional Medical Center10-28-2022 Miscellaneous Notes* Telephone Encounter - Tori Morales Ma - 06/29/2022 10:14 AM EDT Patient notified. * Telephone Encounter - David Anna APRN.DEBORAH - 06/28/2022 4:47 PM EDT I reviewed the [facility] and from their description, cough is being generated by sinus infection. I am ordering augmenting for this along with benzonatate to try and help suppress the cough.If the cough is worsening, I would also like to order a chest xray to be done. If no improvement inthe next few days or if any new symptoms occur she really should be re-evaluated. Thank you David Anna APRN.DEBORAH * Telephone Encounter - Sita Mauricio LPN - 06/28/2022 9:24 AM EDT Patient recently had cataract surgery completed and developed an upper respiratory infection with cough. She has coughed so hard that she has ruptured blood vessels in her eye that she had the surgery on and having trouble seeing out of that eye. [facility] and he felt it was viral. Dr. Eugene is asking that she be given something to treat the cough and patient is requesting an antibiotic such as Z-pk or levaquin. Please review and advise. documented in this encounterFirelands Regional Medical Center10-28-2022 Miscellaneous Notes* Telephone Encounter - Janet Rivero RN - 06/29/2022 8:59 AM EDT Patient has been scheduled for today 06/29/2022 at the [place] office with Dr. Torres. Janet Rivero RN June 29, 2022 8:59 AM * Telephone Encounter - Janet Rivero RN - 06/29/2022 7:35 AM EDT Received message via Secure Chat from Dr. Eugene that due to patient living in [place] that she could see Dr. Torres for a dilated exam as well. If patient wants seen by Dr. Eugene he is at [facility]. Janet Rivero RN June 29, 2022 7:36 AM * Telephone Encounter - Janet Rivero RN - 06/28/2022 6:07 PM EDT Discussed patient with Dr. Eugene. He advised for patient to be seen on 06/29/[address] Ramos. Routed to [facility] staff to schedule. Janet Rivero RN June 28, 2022 6:08 PM * Telephone Encounter - Janet Rivero RN - 06/28/2022 4:05 PM EDT Patient with Superior bleb right eye and 2 prolene sutures into iridotomy right eye. Using Prednisolone, Ketorolac and Moxifloxacin as per post-op instructions Has script for Polysporin ophthalmic that was prescribed for left eye 02/28/2022. Will wait for Dr. Eugene to advise. Janet Rivero RN June 28, 2022 4:06 PM * Telephone Encounter - Meche Salvador - 06/28/2022 3:44 PM EDT Patient had sx on right eye 06-25-22. Is now having a purple flash of light in the corner of surgical eye whenever she closes her eye. Also feels like a stitch is catching her eye when she closes/opens it. Is very irritated. Has been using refresh, but it is not helping. Refuses to come in due to transportation. Would like a call back with information on what she can do to help. documented in this encounterFirelands Regional Medical Center10-25-2022 Instructions* Patient Instructions* Jonathon Eguene MD - 06/26/2022 1:40 PM EDT -prednisolone every two hours right eye -vigamox four times a day right eye -geldrops left eye -ointment at bedtime left eye documented in this encounterFirelands Regional Medical Center10-25-2022 History of Present illness Narrative* Jonathon Eugene MD - 06/26/2022 1:37 PM EDT Assessment and Plan 1. Photopsia of both eye -sees rainbows when she lifts her eyelids and stares at window with sunlight out -feels that it improved with painting over the superior peripheral iridotomy left eye -right eye is better seeing eye per patient 2. Primary open angle glaucoma (POAG) of both eyes, severe stage 3. 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 History of corneal ulcer left eye -corneal peripheral ulcer left eye - autoimmune? Herpes simples virus? -Anti-nuclear antibody and Herpes simples virus 02/27/22--> negative -resolved Plan: -3-month dissolvable collagen plug size 0.2 placed upper and lower lids left eye 01/30/22 -patient on steroid pills for ear pain -prednisolone every two hours right eye -vigamox four times a day right eye -geldrops left eye -ointment at bedtime left eye -precautions -follow-up 1 week / sooner as needed I have confirmed and edited as necessary the relevant ophthalmic history, ROS, and the neuro exam findings as obtained by others. I have seen and examined Allie Lynn. I have discussed the case and the management of this patient's care with the Resident/Fellow, if applicable. I also have reviewed and agree with the assessment and plan as stated above and agree withall of its relevant components. Jonathon Eugene MD documented in this encounterFirelands Regional Medical Center10-24-2022 History of Past illness Narrative* Problem Noted Date Resolved Date Combined 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 06/25/2022 06/25/2022 Photopsia 06/25/2022 06/25/2022 documented as of this encounter (statuses as of 06/25/2022) [facility] Narrative* Problem Noted Date Resolved Date Combined 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 06/25/2022 06/25/2022 Photopsia 06/25/2022 06/25/2022 documented as of this encounter (statuses as of 06/26/2022) [facility] Narrative* Problem Noted Date Resolved Date Combined 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 06/25/2022 06/25/2022 Photopsia 06/25/2022 06/25/2022 documented as of this encounter (statuses as of 06/26/2022) [facility] Narrative* Problem Noted Date Resolved Date Combined 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 06/25/2022 06/25/2022 Photopsia 06/25/2022 06/25/2022 documented as of this encounter (statuses as of 06/29/2022) [facility] Narrative* Problem Noted Date Resolved Date Combined 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 06/25/2022 06/25/2022 Photopsia 06/25/2022 06/25/2022 documented as of this encounter (statuses as of 06/29/2022) [facility] Narrative* Problem Noted Date Resolved Date Combined 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 06/25/2022 06/25/2022 Photopsia 06/25/2022 06/25/2022 documented as of this encounter (statuses as of 06/29/2022) [facility] Narrative* Problem Noted Date Resolved Date Combined 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 06/25/2022 06/25/2022 Photopsia 06/25/2022 06/25/2022 documented as of this encounter (statuses as of 07/03/2022) [facility] Narrative* Problem Noted Date Resolved Date Combined 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 06/25/2022 06/25/2022 Photopsia 06/25/2022 06/25/2022 documented as of this encounter (statuses as of 07/05/2022) [facility] Narrative* Problem Noted Date Resolved Date Combined 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 06/25/2022 06/25/2022 Photopsia 06/25/2022 06/25/2022 documented as of this encounter (statuses as of 07/23/2022) [facility] Narrative* Problem Noted Date Resolved Date Combined 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 06/25/2022 06/25/2022 Photopsia 06/25/2022 06/25/2022 documented as of this encounter (statuses as of 07/24/2022) [facility] Narrative* Problem Noted Date Resolved Date Combined 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 06/25/2022 06/25/2022 Photopsia 06/25/2022 06/25/2022 documented as of this encounter (statuses as of 07/24/2022) [facility] Narrative* Problem Noted Date Resolved Date Combined 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 06/25/2022 06/25/2022 Photopsia 06/25/2022 06/25/2022 documented as of this encounter (statuses as of 07/25/2022) [facility]* Problem Noted Date Resolved Date Combined 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 06/25/2022 06/25/2022 Photopsia 06/25/2022 06/25/2022 documented as of this encounter (statuses as of 08/14/2022) [facility]* Problem Noted Date Resolved Date Combined 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 06/25/2022 06/25/2022 Photopsia 06/25/2022 06/25/2022 documented as of this encounter (statuses as of 08/16/2022) [facility]* Problem Noted Date Resolved Date Combined 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 06/25/2022 06/25/2022 Photopsia 06/25/2022 06/25/2022 documented as of this encounter (statuses as of 09/20/2022) [facility]* Problem Noted Date Resolved Date Combined 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 06/25/2022 06/25/2022 Photopsia 06/25/2022 06/25/2022 documented as of this encounter (statuses as of 09/26/2022) [facility]* Problem Noted Date Resolved Date Combined 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 06/25/2022 06/25/2022 Photopsia 06/25/2022 06/25/2022 documented as of this encounter (statuses as of 09/27/2022) [facility]* Problem Noted Date Resolved Date Combined 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 06/25/2022 06/25/2022 Photopsia 06/25/2022 06/25/2022 documented as of this encounter (statuses as of 09/28/2022) [facility]* Problem Noted Date Resolved Date Combined 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 06/25/2022 06/25/2022 Photopsia 06/25/2022 06/25/2022 documented as of this encounter (statuses as of 10/01/2022) [facility]* Problem Noted Date Resolved Date Combined 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 06/25/2022 06/25/2022 Photopsia 06/25/2022 06/25/2022 documented as of this encounter (statuses as of 10/02/2022) [facility]* Problem Noted Date Resolved Date Combined 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 06/25/2022 06/25/2022 Photopsia 06/25/2022 06/25/2022 documented as of this encounter (statuses as of 10/02/2022) [facility]* Problem Noted Date Resolved Date Combined 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 06/25/2022 06/25/2022 Photopsia 06/25/2022 06/25/2022 documented as of this encounter (statuses as of 10/04/2022) [facility]* Problem Noted Date Resolved Date Combined 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 06/25/2022 06/25/2022 Photopsia 06/25/2022 06/25/2022 documented as of this encounter (statuses as of 10/09/2022) [facility]* Problem Noted Date Resolved Date Combined 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 06/25/2022 06/25/2022 Photopsia 06/25/2022 06/25/2022 documented as of this encounter (statuses as of 10/11/2022) [facility]* Problem Noted Date Resolved Date Combined 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 06/25/2022 06/25/2022 Photopsia 06/25/2022 06/25/2022 documented as of this encounter (statuses as of 10/17/2022) [address]24-2022 History of Past illness Narrative* Problem Noted Date Resolved Date Combined 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 06/25/2022 06/25/2022 Photopsia 06/25/2022 06/25/2022 documented as of this encounter (statuses as of 10/17/2022) [facility]* Problem Noted Date Resolved Date Combined 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 06/25/2022 06/25/2022 Photopsia 06/25/2022 06/25/2022 documented as of this encounter (statuses as of 10/25/2022) [facility]* Problem Noted Date Resolved Date Combined 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 06/25/2022 06/25/2022 Photopsia 06/25/2022 06/25/2022 documented as of this encounter (statuses as of 10/26/2022) [facility]* Problem Noted Date Resolved Date Combined 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 06/25/2022 06/25/2022 Photopsia 06/25/2022 06/25/2022 documented as of this encounter (statuses as of 10/29/2022) [facility]* Problem Noted Date Resolved Date Combined 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 06/25/2022 06/25/2022 Photopsia 06/25/2022 06/25/2022 documented as of this encounter (statuses as of 10/31/2022) [facility]* Problem Noted Date Resolved Date Combined 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 06/25/2022 06/25/2022 Photopsia 06/25/2022 06/25/2022 documented as of this encounter (statuses as of 11/02/2022) [facility]10[facility] History of Past illness Narrative* Problem Noted Date Resolved Date Combined 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 06/25/2022 06/25/2022 Photopsia 06/25/2022 06/25/2022 documented as of this encounter (statuses as of 11/05/2022) [facility] History of Past illness Narrative* Problem Noted Date Resolved Date Combined 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 06/25/2022 06/25/2022 Photopsia 06/25/2022 06/25/2022 documented as of this encounter (statuses as of 11/13/2022) [facility] History of Past illness Narrative* Problem Noted Date Diagnosed Date Resolved Date Combined forms of age-relate d cataract of right eye 06/25/2022 06/25/2022 Photopsia 06/25/2022 06/25/2022 Combined forms of age-relate d cataract, left eye 04/03/2022 12/29/2022 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, right, indeterminate stage 10/26/2021 0 12/29/2022 documented as of this encounter (statuses as of 07/06/2023) [facility] History of Past illness Narrative* Problem Noted Date Diagnosed Date Resolved Date Combined forms of age-relate d cataract of right eye 06/25/2022 06/25/2022 Photopsia 06/25/2022 06/25/2022 Combined forms of age-relate d cataract, left eye 04/03/2022 12/29/2022 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, right, indeterminate stage 10/26/2021 0 12/29/2022 documented as of this encounter (statuses as of 07/06/2023) [facility] History of Past illness Narrative* Problem Noted Date Diagnosed Date Resolved Date Combined forms of age-relate d cataract of right eye 06/25/2022 06/25/2022 Photopsia 06/25/2022 06/25/2022 Combined forms of age-relate d cataract, left eye 04/03/2022 12/29/2022 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, right, indeterminate stage 10/26/2021 0 12/29/2022 documented as of this encounter (statuses as of 07/06/2023) [facility] History of Past illness Narrative* Problem Noted Date Diagnosed Date Resolved Date Combined forms of age-relate d cataract of right eye 06/25/2022 06/25/2022 Photopsia 06/25/2022 06/25/2022 Combined forms of age-relate d cataract, left eye 04/03/2022 12/29/2022 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 Author Type: Registered Nurse Type: Nursing Progress Note Filed: 06/25/2022 9:59 AM Note Text: Spoke with Mallika PETAL SHAPER HAND that patient has questions for Dr. Eugene prior to procedure.[id number] Discharge instructions* Discharge Instr - Other Orders* Jonathon Eugene MD - 06/25/2022 11:31 AM EDT Instructions After Cataract Surgery It is very important to follow these instructions after your eye surgery to ensure its success. A responsible adult must drive you home after the surgery. You might feel well, but the medicines given during the surgery might affect you for several hours. Do not drive or operate machinery for the rest of the day. We recommend that a responsible adult stay with you for 24 hours after surgery. Eye Protection - You may wear your glasses during the day. Before you go to sleep, put on the protective shield without a cotton patch. Activity - You may use your eyes for activities such as reading, writing, and watching television as much as you choose. Your vision might be blurred, but you will not harm your operated eye by trying to use it. Ask about driving when you see your doctor at your follow up appointment. Avoid the following activities for 2 weeks after surgery: Heavy lifting (over 20 pounds) Swimming Strenuous exercise or activity Working in mariel places Activities that might injure your eye Daily hygiene - You may shower and wash your hair and face as usual, but DO NOT rub your operated eye. Try to avoid getting soap or water in your eyes. Pain management - Pain after eye surgery is not common. Most people do not need oral pain medicine.If you do have some eye pain or a headache, you may take acetaminophen unless there is some reason you cannot take this medication (i.e., liver disease, allergies, etc.). Follow the instructions on the bottle. Diet - If you feel sick to your stomach, drink only clear liquids. Clear liquids include clear broth, tea, strained fruit juices, strained vegetable soup, black coffee, plain gelatin, and ju jovanny.Eat a regular meal when you do not feel sick. Do not drink alcoholic beverages for 24 hours after the surgery. Eye medications - If you have been prescribed or given eye drops and/or ointment, please bring them, this handout and any previous eye drops/ointments you have to your follow up appointment. Your eyemedications will be explained during your follow up appointment. How to give yourself eye drops or ointment Wash your hands with soap and warm water. Dry them with a clean towel. If you are putting in your own eye medicine, lie down or use a mirror. Ask someone to check that you are getting the medicine in your eye. Look up to the ceiling with both eyes. Pull the lower lid of your eye down with one hand. Hold the medicine bottle or tube in your other hand. (if necessary, rest part of your hand on your forehead to keep it steady). Place a drop of medicine or a small amount of ointment inside your lower lid. The tip of the medicine bottle or tube should not touch your eye. Close your eyes for a minute after putting in the medicine. If you are prescribed both eye drops and eye ointment, use the eye drops first. If you have more than one eye medicine to put in your eyes, wait about 5 minutes after the first medicine before putting the second medicine. Call your surgeon immediately if you experience: Increased or severe eye pain Bleeding from the eye Sudden decrease in vision or decreased ability to see light Discharge from the eye Any questions or problems Call your doctor immediately or go to the nearest emergency room if you experience: Nausea or vomiting that won't go away Chest pain Leg cramps A temperature above 101 F or 38.3 C Trouble breathing Contact Jonathon Eugene [phone] and leave voicemail -emergency numbers: [phone] or ext [phone] and ask for the eye doctor transcription specialist. documented in this encounterCleveland [id number] History and physical note * Jonathon Eugene MD - 06/25/2022 10:02 AM EDT UPDATED HISTORY AND PHYSICAL EXAMINATION SERVICE DATE: 06/25/2022 SERVICE TIME: 10:03 AM PHYSICAL EXAM MUST BE COMPLETED ON ADMISSION The History and Physical (completed in the past 30 days) has been reviewed and the patient has beenexamined. The contents accurately reflect the patient's condition with the following additions or revisions since the H&P was completed. Examination indicates no changes. This H&P can be found in the attached. SIGNATURE: Jonathon Eugene MD PATIENT NAME: Allie Lynn DATE: June 25, 2022 TIME: 10:02 AM documented in this [facility]10-24-2022 Nurse Note* Allie Cardoso RN - 06/25/2022 9:58 AM EDT Spoke with Mallika PETAL SHAPER HAND that patient has questions for Dr. Eugene prior to procedure. documented in this [facility]10-24-2022 Surgical operation note* Operative Report - Jonathon Eugene MD - 06/25/2022 9:58 AM EDT OPERATIVE/PROCEDURE REPORT OPHTHAMOLOGY LOG ID: [id number] SURGERY/PROCEDURE DATE: 06/25/2022 INCISION/PROCEDURE START TIME: 10:13 AM INCISION CLOSE/PROCEDURE END TIME: 11:27 AM SURGEON(S)/PROCEDURALIST(S) AND SIZING MACHINE TENDER(S): Surgeon(s) and Role: * Jonathon Eugene MD - Primary PROCEDURE(S): Procedure(s) (LRB): PHACOEMULSIFICATION CATARACT IMPLANT INTRAOCULAR LENS W/O ENDOSCOPIC CYCLOPHOTOCOAGULATION (Right) REPAIR W/SUTURE IRIS AND CILIARY BODY (Right) OPHTHALMIC BIOMETRY BY PARTIAL COHERENCE INTERFEROMETRY W/INTRAOCULAR LENS POWER CALCULATION (Right) PREOPERATIVE DIAGNOSIS: Combined form of age-related cataract, Right eye. Photopsia right eye. Large iridotomy right eye POST-OP/POST-PROCEDURE DIAGNOSIS: Same as Preop OPERATIVE INDICATIONS: Blurred vision and glare right eye affecting activities of daily living (ADLs) ANESTHESIA: Monitored Anesthesia Care PROCEDURE DETAILS: The patient was transferred to the operating room where the eye was prepared anddraped in sterile fashion. An eyelid speculum was placed and a paracentesis was performed. Preservative-free lidocaine 1% and viscoelastic were injected into the anterior chamber. A keratome was usedto perform a clear corneal incision. Capsulorrhexis and hydrodissection were performed. The lens nucleus was removed with the phacoemulsification instrument. The residual cortex was removed with the irrigation/aspiration instrument. The capsular bag was filled with viscoelastic, and the above-notedintraocular lens was inserted into the capsular bag. The residual viscoelastic was removed with the irrigation/aspiration instrument. Miochol was injected in the anterior chamber to achieve pupillary constriction. A second paracentesis was created across from the first one. A 10-prolene on CTC-6L needle was passed through the 1st paracentesis, into the iris leaflets, then out of the opposite paracentesis and tied using a Siepser knot technique. This one done again to achieve adequate narrowing of the large peripheral iridotomy that was responsible for glare. The anterior chamber was reformed with balanced salt solution and the corneal wounds were hydrated.A water-tight corneal closure was achieve. No suture(s) were placed in the wound. Intracameral injection of antibiotic was performed. Topical steroid medication was applied to the operated eye and itwas covered with a protective shield. The patient was transferred to the recovery room in stable condition. ESTIMATED BLOOD LOSS: Minimal unless noted here. SPECIMENS: * No specimens in log * IMPLANTABLE DEVICES: Implant Name Type Inv. Item Serial No. Communication Instructor Lot No. LRB No. Used Action Model No. LENS ACRYSOF ULTRASERT +14.5 DIOPTER ACRYLIC IOL 1 PIECE FOLDABLE UV BLUE - [id number] Intraocular Lens LENS ACRYSOF ULTRASERT +14.5 DIOPTER ACRYLIC IOL 1 PIECE FOLDABLE UV BLUE [id number] [employer] Right 1 Implanted [id number] Ocular Co-Morbidities: Yes Intra-operative Complications None I/primary surgeon/proceduralist performed the entire procedure. SIGNATURE: Jonathon Eugene MD PATIENT NAME: Allie Lynn DATE: June 25, 2022 TIME: 11:31 AM PAGER/CONTACT #: [phone] documented in [facility] Miscellaneous Notes* Telephone Encounter - Janet Rivero RN - 06/22/2022 10:58 AM EDT Pended pre-operative drop prescriptions to Dr. Eugene for approval. Janet Rivero RN June 22, 2022 10:59 AM [facility] in [facility] Miscellaneous Notes* Telephone Encounter - Meche Salvador - 06/22/2022 9:24 AM EDT Patient's pharmacy has no record of receiving the pre surgical prescriptions. Her surgery is 06-25-22, so she needs to start the drops tomorrow. Please send drops to [facility] [address]to. [place], [place] documented in this encounterFire[facility]10[facility] History of Present illness Narrative* Charlene Grossman MD - 06/20/2022 5:16 PM EDT Images from the original note were not included. Charlene Grossman MD Interventional Cardiology [address] [place] [id number] Chief Complaint Patient presents with: CARD New Patient Consult: PXE HISTORY OF PRESENT ILLNESS: Ms. 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 Denies any chest pain or shortness of breath No prior cardiac history in the past No angina Symptoms or signs of congestive heart failure Cardiac Risk Factors age (male over 45, female over 55), family history of CAD PAST MEDICAL HISTORY Diagnosis Date Abnormal EKG Anemia Angioid streaks Coronary artery disease Fibromyalgia GERD (gastroesophageal reflux disease) Glaucoma HLD (hyperlipidemia) HTN (hypertension) Macular degeneration disease bilateral Mitral prolapse per Mitral valve disorders(424.0) Mitral valve stenosis and aortic valve stenosis Myalgia and myositis, unspecified PXE (pseudoxanthoma elasticum) Rheumatic fever 1995 Rheumatic heart disease, unspecified Unspecified essential hypertension PAST SURGICAL HISTORY Procedure Laterality Date ARTHROSCOPY KNEE DIAGNOSTIC W/WO SYNOVIAL BX SPX 1995 Arthroscopy, knee AVASTIN (BEVACIZUMAB) 1.25MG INTRAVITREAL INJECTION OD (RIGHT EYE) Right x 5 (03/12/17) DELIVERY ONLY 1988, 1991, 1993 , low cervical-x 3 COLONOSCOPY FLX DX W/COLLJ SPEC WHEN PFRMD 06/22/[address] MAXILLOFAC/SINUS 06/29/2015 normal ENDOMETRIAL BX W/WO ENDOCERVIX BX W/O DILAT SPX 02/18/2012 ESOPHAGOGASTRODUODENOSCOPY TRANSORAL DIAGNOSTIC 02/03/2018 EGD INCISION OF EYE, TRABECULECTOMY Right 10/26/2021 LASER SELECTA 2 TRABECULOPLASTY Left 01/08/2020 LASER TRABECULOPLASTY OD (RIGHT EYE) Right 10/26/2021 S BALLOON,UTERINE ABLATION [address] FAMILY HISTORY Problem Relation Age of Onset Heart Father Age 61 Heart Maternal Grandfather Cancer Paternal Grandmother Breast Cancer Maternal Aunt 55 ovarian cancer Heart Son MS Ovarian cancer Maternal Grandmother Glaucoma No Family History Detached Retina No Family History Macular Degen No Family History Blindness No Family History Amblyopia No Family History Social History Tobacco Use Smoking status: Never Smokeless tobacco: Never Vaping Use Vaping Use: Never used Substance Use Topics Alcohol use: No Drug use: No ALLERGIES Allergen Reactions Ultram [Tramadol Hc* Vomiting Darvocet A500 [Prop* Mental Status Change Hydrocodone Bitartr* Itching Nitrofurantoin Other: See Comments Loss of conciousness Opioids - Morphine * Itching Propoxyphene Other: See Comments Hallucinations Tramadol Other: See Comments Loss of conciousness Vicodin [Hydrocodon* Itching Medications: Current Outpatient Medications Medication Sig Dispense Refill L.acid/B.animalis,bifidum/FOS (PROBIOTIC COMPLEX ORAL) Take by mouth. biotin/calcium carbonate (BIOTIN-CALCIUM ORAL) Take by mouth. vitamin B complex (B COMPLEX-VITAMIN B12 ORAL) Take by mouth. Collagenase powd traZODone (DESYREL) 50 mg tablet Take 1 tablet by mouth daily at bedtime. 90 tablet 1 fluticasone (FLONASE) 50 mcg/actuation nasal spray Use 2 Sprays in each nostril once daily. Rinse mouth after use. 3 Each 3 gabapentin (NEURONTIN) 100 mg capsule Take 1 capsule by mouth daily at bedtime for 181 days. 60 capsule 2 cyclobenzaprine (FLEXERIL) 10 mg tablet Take 1 tablet by mouth twice daily as needed. 180 tablet 3 conjugated estrogens-medroxyPROGESTERone (PREMPRO) 0.45-1.5 mg per tablet Take 1 tablet by mouth once daily. 84 tablet 2 omeprazole (PRILOSEC) 20 mg capsule Take 1 capsule by mouth once daily. 90 capsule 3 lisinopril-hydroCHLOROthiazide (PRINZIDE,ZESTORETIC) 10-12.5 mg per tablet Take 1 tablet by mouth once daily. 90 tablet 3 atorvastatin (LIPITOR) 40 mg tablet Take 1 tablet by mouth once daily. 90 tablet 3 meloxicam (MOBIC) 15 mg tablet Take 1 tablet by mouth once daily. 90 tablet 3 aspirin, enteric coated (ASPIR-LOW) 81 mg EC tablet Take 1 tablet by mouth once daily. 0 bacitracin-polymyxin b (POLYSPORIN) ophthalmic ointment Use 1 application in the left eye three times daily. (Patient not taking: Reported on 05/03/2022) 3.5 g 2 No current facility-administered medications for this visit. Review of Systems Constitutional: Negative for chills, diaphoresis, fever, malaise/fatigue and weight loss. HENT: Negative for congestion, ear discharge, ear pain, hearing loss, nosebleeds, sinus pain, sore throat and tinnitus. Eyes: Negative for blurred vision, double vision, photophobia, pain, discharge and redness. Respiratory: Negative for cough, hemoptysis, sputum production, shortness of breath, wheezing and stridor. Cardiovascular: Negative for chest pain, palpitations, orthopnea, claudication, leg swelling and PND. Gastrointestinal: Negative for abdominal pain, blood in stool, constipation, diarrhea, heartburn, melena, nausea and vomiting. Genitourinary: Negative for dysuria, flank pain, frequency, hematuria and urgency. Musculoskeletal: Negative for back pain, falls, joint pain, myalgias and neck pain. Skin: Negative for itching and rash. Neurological: Negative for dizziness, tingling, tremors, sensory change, speech change, focal weakness, seizures, loss of consciousness, weakness and headaches. Endo/Heme/Allergies: Negative for environmental allergies and polydipsia. Does not bruise/bleed easily. Psychiatric/Behavioral: Negative for depression, hallucinations, memory loss, substance abuse and suicidal ideas. The patient is not nervous/anxious and does not have insomnia. Physical Examination: Vitals:BP 125/70 Pulse 88 Resp 18 Ht 5' 0 (1.52m) Wt 155 lb (70.3kg) SpO2 98% BMI 30.27 kg/(m^2). BP w/Orthostatic Vitals Date and Time Orthostatic BP Orthostatic Pulse BP Pulse BP Position BP Site BP Cuff Size 06/20/22 1240 -- -- 125/70 88 Sitting Left Arm Regular Adult Peak Flow Date and Time PF Resp 06/20/22 1240 -- 18 Last 2 Encounter Wt Readings: Date: Wt: 06/20/2022 155 lb (70.3 kg) 06/04/2022 152 lb (68.9 kg) Physical Exam Constitutional: General: She is not in acute distress. Appearance: She is not diaphoretic. HENT: Head: Normocephalic and atraumatic. Right Ear: External ear normal. Left Ear: External ear normal. Nose: Nose normal. Mouth/Throat: Pharynx: Oropharynx is clear. Eyes: General: Right eye: No discharge. Left eye: No discharge. Conjunctiva/sclera: Conjunctivae normal. Pupils: Pupils are equal, round, and reactive to light. Cardiovascular: Rate and Rhythm: Normal rate and regular rhythm. Heart sounds: Normal heart sounds, S1 normal and S2 normal. No murmur heard. No friction rub. No gallop. No S3 or S4 sounds. Pulmonary: Effort: Pulmonary effort is normal. No respiratory distress. Breath sounds: Normal breath sounds. No wheezing or rales. Chest: Chest wall: No tenderness. Musculoskeletal: General: Normal range of motion. Cervical back: Normal range of motion and neck supple. Skin: General: Skin is warm and dry. Neurological: Mental Status: She is alert and oriented to person, place, and time. Psychiatric: Mood and Affect: Mood normal. Thought Content: Thought content normal. Judgment: Judgment normal. Pertinent Labs: CBC: Hemoglobin (g/dL) Date Value 05/03/2022 13.1 12/15/2020 12.6 Hematocrit (%) Date Value 05/03/2022 40.2 12/15/2020 40.4 WBC (k/uL) Date Value 05/03/2022 8.52 12/15/2020 7.05 Platelet Count (k/uL) Date Value 05/03/2022 314 12/15/2020 351 BMP: Glucose (mg/dL) Date Value 08/15/2021 85 Potassium (mmol/L) Date Value 08/15/2021 3.8 Sodium (mmol/L) Date Value 08/15/2021 138 Chloride (mmol/L) Date Value 08/15/2021 100 CO2 (mmol/L) Date Value 08/15/2021 27 Creatinine (mg/dL) Date Value 08/15/2021 0.91 BUN (mg/dL) Date Value 08/15/2021 19 Anion Gap (mmol/L) Date Value 08/15/2021 11 Calcium (mg/dL) Date Value 08/15/2021 9.9 INR: Lipid Profile: Cholesterol, Total Date Value Ref Range Status 08/15/2021 189 <200 mg/dL Final Comment: <200 mg/dL, Desirable 200-239 mg/dL, Borderline high >239 mg/dL, High HDL Cholesterol Date Value Ref Range Status 08/15/2021 56 >39 mg/dL Final Comment: 40-59 mg/dL, Acceptable >59 mg/dL, High: Negative risk factor for coronary heart disease <40 mg/dL, Low: Positive risk factor for coronary heart disease LDL Cholesterol Date Value Ref Range Status 08/15/2021 109 (H) <100 mg/dL Final Comment: <100 mg/dL, Optimal 100-129 mg/dL, Near optimal/above optimal 130-159 mg/dL, Borderline high 160-189 mg/dL, High >189 mg/dL, Very high Secondary prevention optimal LDL Cholesterol levels are recommended to be < 70 mg/dL Triglyceride Date Value Ref Range Status 08/15/2021 119 <150 mg/dL Final Comment: <150 mg/dL, Normal 150-199 mg/dL, Borderline high 200-499 mg/dL, High >499 mg/dL, Very high Hemoglobin A1C: No results found for: HGBA1C TSH: No results found for: TSHREFL Prior Cardiac Testing EKG Assessment and Plan: 52 years old female patient with residual exam, elasticum no cardiac manifestations so far Patient denies any chest pain or shortness of breath Patient is cleared for eye surgery with mild risk of cardiac event She is getting an echo to assess LV function rule out any cardiomyopathy and assess any valvular abnormality Follow up plannin MONTHS Electronically signed by Charlene Grossman MD on June 20, 2022, 5:16 PM The above note was partially created using a dictation recognition software. A reasonable attempt has been made to correct any errors. documented in this encounterFirelands [facility] Center10-19-2022 Nurse Note* Alana Jiang MA - 06/20/2022 12:46 PM EDT Patient c/o bradycardia, palpitations, SOB, chest tenderness documented in this encounterFirelands Regional Medical Center10-19-2022 Miscellaneous Notes* Telephone Encounter - Mauricio Bahena - 06/20/2022 9:32 AM EDT Attempted to contact patient to inform to arrive at [address] [place] [address] at 09:05 am for 06/25/22 surgery with Jonathon Eugene MD, to refrain from eating or drinking for 8 hours prior to arrival for surgery, and to begin the eyedrops in the right eye on 06/23/22. Left message on machine to callwith any questions or concerns. documented in this encounterFirelands Regional Medical Center09-09-2022 Miscellaneous Notes* Telephone Encounter - Celeste Cardona LPN - 05/11/2022 11:02 AM EDT Patient has been identified by name and date of : Yes Patient phones for refill(s): Requested Prescriptions Pending Prescriptions Disp Refills traZODone (DESYREL) 50 mg tablet 90 tablet 1 Sig: Take 1 tablet by mouth daily at bedtime. fluticasone (FLONASE) 50 mcg/actuation nasal spray 3 Each 3 Sig: Use 2 Sprays in each nostril once daily. Rinse mouth after use. Date of last office visit in primary care: 12/25/2021 Last 2 Encounter Wt Readings: Date: Wt: 02/09/2022 72.7 kg (160 lb 3.2 oz) 12/25/2021 73 kg (161 lb) Previous labs/tests for medication: Not applicable Please advise. Thank you. Celeste Cardona LPN * Telephone Encounter - Myar Deal [facility] [place] - 05/11/2022 10:15 AM EDT Patient has been identified by name and date of : Yes Requested Prescriptions Pending Prescriptions Disp Refills traZODone (DESYREL) 50 mg tablet 90 tablet 1 Sig: Take 1 tablet by mouth daily at bedtime. fluticasone (FLONASE) 50 mcg/actuation nasal spray 3 Each 3 Sig: Use 2 Sprays in each nostril once daily. Rinse mouth after use. RX INSTRUCTIONS: Patient aware RX will be sent to pharmacy. No need to notify patient. [facility] documented in this encounterFirelands Regional Medical Center09-09-2022 Miscellaneous Notes* Telephone Encounter - Anshul Oliver Ma - 05/11/2022 10:29 AM EDT NOMI: 12/25/2021 Last refill: 09/18/2021 QTY: 60 Refills: 2 * Telephone Encounter - Myra Deal [facility] - 05/11/2022 10:19 AM EDT Patient is requesting medication, Gabapentin 100 mg take one daily at bedtime. She will need these for her upcoming eye procedure. This medication is not on the medication list. Please send to her local pharmacy [facility]. Any questions , please call patient [phone] documented in this encounterFirelands Regional Medical Center09-01-2022 History of Present illness Narrative* Viviana Powell Ma - 05/03/2022 4:34 PM EDT EMG/NCV order faxed to [facility] scheduling. Referral done in computer. * Massimo Roberts MD - 05/03/2022 1:30 PM EDT Massimo Roberts MD Department of Orthopaedics Orthopaedics [address] [facility] [address] Dept: [phone] Dept May 03, 2022 CHIEF COMPLAINT: New and Pain of the Left Hand and New and Pain of the Right Hand HPI Patient here today for bilateral hand pain x 1 year. Progressively getting worse. She wakes up with hands curled, she can't touch the palm of the left hand due to the pain she feels. She is righthand dominant. ASSESSMENT: M79.641, M79.642 Pain in both hands (primary encounter diagnosis) M65.332 Trigger middle finger of left hand M65.341 Trigger ring finger of right hand PLAN: Some of her symptoms do not fully add up potentially something surgical. Had like to get some bloodwork to evaluate for an inflammatory process. Will evaluate for nerve problem as well. We will see her back after she gets blood work and nerve testing FOLLOW UP INSTRUCTIONS: As above Ms. Allie Lynn was advised as to contrast therapies and/or to take analgesics/anti-inflammatories as needed and all contraindications were reviewed. OBJECTIVE: Ms. Allie Lynn is a pleasant 52 year old in no apparent distress. Gen:There were no vitals taken for this visit. nl development, non obese, no deformities ENT: Normocephalic, normal hearing, moist mucosa CV: Pulses:Radial= 2+ and symmetric, capillary refill < 2 secs, no peripheral edema/varicosities Skin: no rash, bruising or lesions. Good turgor. Psych: cooperative and appropriate, alert and oriented x 3, good mood and affect. Musculoskeletal: Cervical spine has supple range of motion and no tenderness to palpation, Spurling's sign negative.Shoulders and elbows have full range of motion. Negative Tinel's over the cubital tunnel, no subluxation of ulnar nerve at the elbow with flexion. Negative Tinel's over Guyon's canal. Inspection reveals no thenar atrophy. Mild swelling and stiffness globally in both hands. Very mild diminished sensation to light touch in the radial 3 digits. Sensation intact in the ulnar 2 digits with out intrinsic atrophy/weakness. Positive Tinel's at the wrist, positive carpal tunnel compression testing on the right worse than left. No locking or catching of the digits. Tender to palpation at the A1 raymond sites of the middle and ring fingers on the left and right hand respectively. No tenderness to palpation or masses noted in the forearm or hand. IMAGING: Deferred today Supporting Subjective Information Below: Past Medical History: PAST MEDICAL HISTORY Diagnosis Date Abnormal EKG Anemia Angioid streaks Coronary artery disease Fibromyalgia GERD (gastroesophageal reflux disease) Glaucoma Macular degeneration disease bilateral Mitral prolapse per Mitral valve disorders(424.0) Mitral valve stenosis and aortic valve stenosis Myalgia and myositis, unspecified PXE (pseudoxanthoma elasticum) Rheumatic heart disease, unspecified Unspecified essential hypertension Past Surgical History: PAST SURGICAL HISTORY Procedure Laterality Date ARTHROSCOPY KNEE DIAGNOSTIC W/WO SYNOVIAL BX SPX 1995 Arthroscopy, knee AVASTIN (BEVACIZUMAB) 1.25MG INTRAVITREAL INJECTION OD (RIGHT EYE) Right x 5 (03/12/17) DELIVERY ONLY 1988, 1991, 1993 , low cervical-x 3 COLONOSCOPY FLX DX W/COLLJ SPEC WHEN PFRMD 06/22/[address] MAXILLOFAC/SINUS 06/29/2015 normal ENDOMETRIAL BX W/WO ENDOCERVIX BX W/O DILAT SPX 02/18/2012 ESOPHAGOGASTRODUODENOSCOPY TRANSORAL DIAGNOSTIC 02/03/2018 EGD INCISION OF EYE, TRABECULECTOMY Right 10/26/2021 LASER SELECTA 2 TRABECULOPLASTY Left 01/08/2020 LASER TRABECULOPLASTY OD (RIGHT EYE) Right 10/26/2021 S [place] [id number] Family History: FAMILY HISTORY Problem Relation Age of Onset Heart Father Age 61 Heart Maternal Grandfather Cancer Paternal Grandmother Breast Cancer Maternal Aunt 55 ovarian cancer Heart Son MS Ovarian cancer Maternal Grandmother Glaucoma No Family History Detached Retina No Family History Macular Degen No Family History Blindness No Family History Amblyopia No Family History Social History: Social History Tobacco Use Smoking status: Never Smokeless tobacco: Never Vaping Use Vaping Use: Never used Substance Use Topics Alcohol use: No Drug use: No Medications: Current Outpatient Medications Medication Sig cyclobenzaprine (FLEXERIL) 10 mg tablet Take 1 tablet by mouth twice daily as needed. conjugated estrogens-medroxyPROGESTERone (PREMPRO) 0.45-1.5 mg per tablet Take 1 tablet by mouth once daily. traZODone (DESYREL) 50 mg tablet Take 1 tablet by mouth daily at bedtime. omeprazole (PRILOSEC) 20 mg capsule Take 1 capsule by mouth once daily. lisinopril-hydroCHLOROthiazide (PRINZIDE,ZESTORETIC) 10-12.5 mg per tablet Take 1 tablet by mouth once daily. fluticasone (FLONASE) 50 mcg/actuation nasal spray Use 2 Sprays in each nostril once daily. Rinse mouth after use. atorvastatin (LIPITOR) 40 mg tablet Take 1 tablet by mouth once daily. meloxicam (MOBIC) 15 mg tablet Take 1 tablet by mouth once daily. aspirin, enteric coated (ASPIR-LOW) 81 mg EC tablet Take 1 tablet by mouth once daily. bacitracin-polymyxin b (POLYSPORIN) ophthalmic ointment Use 1 application in the left eye three times daily. (Patient not taking: Reported on 05/03/2022) oxymetazoline, PF, (UPNEEQ, PF,) 0.1 % dpet Use 1 Drop in eyes once daily. (Patient not taking: Reported on 05/03/2022) No current facility-administered medications for this visit. Allergies: Ultram [Tramadol Hcl], Darvocet A500 [Propoxyphene N-Acetaminophen], Hydrocodone Bitartrate, Nitrofurantoin, Opioids - Morphine Analogues, Propoxyphene, Tramadol, and Vicodin [Hydrocodone-Acetaminophen] ROS: General (negative for fatigue, malaise, weight loss/gain) HEENT (negative for headache, earache, recent vision changes, sinus pain, sore throat) Respiratory (no recent shortness of breath, hemoptysis) CV (negative for chest tightness, palpitations) Musculoskeletal (see HPI) Psych (no depression, anxiety) REFERRING PHYSICIAN: Ms. Allie Lynn was referred to me for consultation by the following physician. This consultation note will be sent to the following physician by either mail or electronic medical record. Massimo Roberts [address] [facility] [id number] Ifeoma Davis MD [address] [facility] [id number] Massimo Roberts MD documented in this encounterFirelands Regional Medical Center08-24-2022 Miscellaneous Notes* Telephone Encounter - Zainab Leyva - 04/25/2022 10:42 AM EDT INTRAOCULAR LENS ORDER ATTN: [facility] PATIENTS NAME: Allie Lynn SURGERY DATE: 06/25/2022 EYE: OD SURGEON: Jonathon Eugene MD LENS: AcrySof IQ TOOL TROUBLE SHOOTER: Leonardo MODEL: ACU0T0 POWER: + 14.5 ADDITIONAL NOTES: documented in this encounterFirelands Regional Medical Center08-11-2022 History of Present illness Narrative* Jonathon Eugene MD - 04/12/2022 2:36 PM EDT Assessment and Plan 1. Photopsia of both eye -sees rainbows when she lifts her eyelids and stares at window with sunlight out -feels that it improved with painting over the superior peripheral iridotomy left eye -right eye is better seeing eye per patient 2. Primary open angle glaucoma (POAG) of both eyes, severe stage 3. 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 Allie Lynn has confirmed that she is no longer able to function adequately on a day-to-day basisbecause of her current visual condition. Further, it is my medical opinion that the cataract is the primary cause, or at least a significantly contributory cause of her visual dysfunction. With uncomplicated cataract surgery and lens implantation, it is my expectation that her visual function and quality of life will improve, significantly. The risks, benefits, alternatives, personnel and complications of cataract surgery with lens implantation were discussed with Allie Lynn in detail. she appeared to understand and asked that I proceed with plans for surgery. 3. History of corneal ulcer left eye -corneal peripheral ulcer left eye - autoimmune? Herpes simples virus? -Anti-nuclear antibody and Herpes simples virus 02/27/22--> negative -resolved Plan: -3-month dissolvable collagen plug size 0.2 placed upper and lower lids left eye 01/30/22 -geldrops to 2 times a day left eye - increase to three times a day -erythromycin ointment three times a day left eye - decrease to at bedtime -discussion of photopsias. options: 1. Tinted lenses - patient not interested in wearing glasses, although I stressed to her importanceof protecting her eyes 2. Iris-painted contact lens - not interested in having eye color change 3. Corneal tattoo - either manual or with refractive surgery. Risk of inflammation, Foreign body sensation, increased pain in already painful/tender eye, fades over time 4. Cataract surgery with suturing of peripheral iridotomy - concern for complex surgery in already fragile eye with advanced glaucoma 5. Botox/induce ptosis? -will try Upneeq once a day first to see if helps with photopsias - unable to get insurance help x 2 attempts -patient would like to proceed with cataract extraction with intraocular lens implantation with iridoplasty right eye - will schedule. Will also trim exposed suture loop superiorly then Cataract: Right eye (OD) Aim -0.25 SA60WF/ACU0T0 power +14.5 Flomax N Diabetes N Glaucoma Y Astigmatism N - more left eye, but unlikely to be important given macular scarring Refractive surgery N Fuchs N Trypan blue N Malyugin ring N Other iridoplasty and trim of superior suture -unable to get IOLMaster today - will bring back for dilated fundus exam and cataract measurements / sooner as needed I have confirmed and edited as necessary the relevant ophthalmic history, ROS, and the neuro exam findings as obtained by others. I have seen and examined Allie Lynn. I have discussed the case and the management of this patient's care with the Resident/Fellow, if applicable. I also have reviewed and agree with the assessment and plan as stated above and agree withall of its relevant components. Jonathon Eugene MD documented in this encounterFirelands Regional Medical Center08-02-2022 Instructions* Patient Instructions* Jonathon Eugene MD - 04/03/2022 12:34 PM EDT Images from the original note were not included. documented in this encounterFirelands Regional Medical Center08-02-2022 History of Present illness Narrative* Jonathon Eugene MD - 04/03/2022 12:19 PM EDT Assessment and Plan 1. Photopsia of both eye -sees rainbows when she lifts her eyelids and stares at window with sunlight out -feels that it improved with painting over the superior peripheral iridotomy left eye -right eye is better seeing eye per patient 2. Primary open angle glaucoma (POAG) of both eyes, severe stage 3. 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 Allie Lynn has confirmed that she is no longer able to function adequately on a day-to-day basisbecause of her current visual condition. Further, it is my medical opinion that the cataract is the primary cause, or at least a significantly contributory cause of her visual dysfunction. With uncomplicated cataract surgery and lens implantation, it is my expectation that her visual function and quality of life will improve, significantly. The risks, benefits, alternatives, personnel and complications of cataract surgery with lens implantation were discussed with Allie Lynn in detail. she appeared to understand and asked that I proceed with plans for surgery. 3. History of corneal ulcer left eye -corneal peripheral ulcer left eye - autoimmune? Herpes simples virus? -Anti-nuclear antibody and Herpes simples virus 02/27/22--> negative -resolved Plan: -3-month dissolvable collagen plug size 0.2 placed upper and lower lids left eye 01/30/22 -geldrops to 2 times a day left eye - increase to three times a day -erythromycin ointment three times a day left eye - decrease to at bedtime -discussion of photopsias. options: 1. Tinted lenses - patient not interested in wearing glasses, although I stressed to her importanceof protecting her eyes 2. Iris-painted contact lens - not interested in having eye color change 3. Corneal tattoo - either manual or with refractive surgery. Risk of inflammation, Foreign body sensation, increased pain in already painful/tender eye, fades over time 4. Cataract surgery with suturing of peripheral iridotomy - concern for complex surgery in already fragile eye with advanced glaucoma 5. Botox/induce ptosis? -will try Upneeq once a day first to see if helps with photopsias - unable to get insurance help x 2 attempts -patient would like to proceed with cataract extraction with intraocular lens implantation with iridoplasty right eye - will schedule. Will also trim exposed suture loop superiorly then Cataract: Right eye (OD) Aim -0.25 SA60WF/ACU0T0 power + Flomax N Diabetes N Glaucoma Y Astigmatism Y/N Pentacam Refractive surgery N Fuchs N Trypan blue N Malyugin ring Y/N Other N/A -unable to get IOLMaster today - will bring back for dilated fundus exam and cataract measurements / sooner as needed I have confirmed and edited as necessary the relevant ophthalmic history, ROS, and the neuro exam findings as obtained by others. I have seen and examined Allie Lynn. I have discussed the case and the management of this patient's care with the Resident/Fellow, if applicable. I also have reviewed and agree with the assessment and plan as stated above and agree withall of its relevant components. Jonathon Eugene MD documented in this encounterFirelands Regional Medical Center07-26-2022 History of Present illness Narrative* Cynthia Ramos MD - 03/27/2022 6:14 PM EDT Tmax 28 , 28 03/10/2019 ; Pachy 543 , 540 Family history Gonioscopy 03/10/2019 PTM OU with 2+ TMP Lasers and surgeries OD multiple injections; SLT 180 (inferior) 01/15/2020 (IOP 28--> 21); SLT superior 180 05/09/2021 (IOP 26-->19); TBX 10/26/2021 (IOP 24) OS multiple injections; SLT 180 (inferior angle) 01/08/2020 (IOP 28-->21); SLT superior 180 05/09/2021 (IOP 23-->22); TBX OS 09/14/2021 (IOP 29) Ocular Medication Intol, Non-efficacy, barriers cosopt - not effective Timolol - not effective cosopt ? Effectiveness rhopressa ineffective Acetazolamide/nepataze - SOB, fatigue, weight loss, memory issues Generic brimonidine 0.2% and alphagan-P - dermatitis and body rash (no symptoms with alphagan-P) ALHAJI allergy Dorzolamide-timolol dermatitis body rash Currently using emycin ointment bedtime OD Refresh as needed Testing -- HVF 04/07/2019 OD central scotoma; OS cecocentral scotoma, not centered, low reliability -- OCT 03/10/2019 OD mod sup>mild inf thinning, temp artifact; OS mild sup/inf thinning -- GCA 03/10/2019 thinning OU/retinal atrophy (H40.1134) Primary open angle glaucoma (POAG) of both eyes, indeterminate stage (primary encounter diagnosis) Comment: 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 H/o Steroid response; multiple gtt allergies. S/p TBX OU IOP low; christopher today show central scotoma that appears expanded and shifted; difficult to compare to previous due to low reliability Unlikely that glaucoma will progress at low IOP with a filter in each eye Right visual decline likely from cataract progression - OK to proceed as Dr. Eugene sees fit; discussed that filter function may decline with surgery and patient understands the risk Positive dysphotopsia likely from superior iridectomy in a setting of a younger person who does nothave ptosis - patient has been seeing Dr. Eugene who has been discussing surgical reduction of iridectomy size - discussed with patient that surgery risks scarring of trabeculectomy, which patient understands OS with well filtering bleb that extends temporally and this predisposed patient to dellen formation - dellen has resolved with increased lubrication from punctal plugs - will monitor - discussed that bleb reduction can be performed if dellen returns and cannot be treated with topical therapy Plan: Monitor IOP surgically controlled F/u Dr. 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 No macular fluid on OCT. Seen by Dr. Grant Plan: f/u with Dr. 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 I have seen and examined this patient. I have discussed the case and the management of this patient's care with the Resident/Fellow/Nuclear Physicist, if applicable. I also have reviewed and agree with the assessment and plan as stated above and agree with all of its relevant components. Cynthia Ramos MD April 03, 2022 5:22 PM documented in this encounterFirelands Regional Medical Center07-13-2022 History of Present illness Narrative* Jonathon Eugene MD - 03/14/2022 12:30 PM EDT Assessment and Plan 1. Photopsia of left eye -sees rainbows when she lifts her eyelids and stares at window with sunlight out -feels that it improved with painting over the superior peripheral iridotomy left eye -right eye is better seeing eye per patient. Very tender to touch and unable to try painting over that area 2. Primary open angle glaucoma (POAG) of both eyes, severe stage 3. 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 Ramos Plan: New corneal peripheral ulcer left eye - autoimmune? Herpes simples virus? -Anti-nuclear antibody and Herpes simples virus 02/27/22--> negative -3-month dissolvable collagen plug size 0.2 placed upper and lower lids left eye 01/30/22 -geldrops to 2 times a day left eye - increase to three times a day -erythromycin ointment three times a day left eye - decrease to at bedtime -discussion of photopsias. options: 1. Tinted lenses - patient not interested in wearing glasses, although I stressed to her importanceof protecting her eyes 2. Iris-painted contact lens - not interested in having eye color change 3. Corneal tattoo - either manual or with refractive surgery. Risk of inflammation, Foreign body sensation, increased pain in already painful/tender eye, fades over time 4. Cataract surgery with suturing of peripheral iridotomy - concern for complex surgery in already fragile eye with advanced glaucoma 5. Botox/induce ptosis? -will try Upneeq once a day first to see if helps with photopsias - unable to get insurance help x 2 attempts -patient would like to proceed with cataract extraction with intraocular lens implantation with iridoplasty left eye - will schedule. -follow-up 2-3 weeks for cataract measurements / sooner as needed I have confirmed and edited as necessary the relevant ophthalmic history, ROS, and the neuro exam findings as obtained by others. I have seen and examined Allie Lynn. I have discussed the case and the management of this patient's care with the Resident/Fellow, if applicable. I also have reviewed and agree with the assessment and plan as stated above and agree withall of its relevant components. Jonathon Eugene MD documented in this encounterFirelands Regional Medical Center07-01-2022 Miscellaneous Notes* Telephone Encounter - Janet Rivero RN - 03/02/2022 10:41 AM EDT COPIED FRO ENCOUNTER PLAN 02/27/2022 Plan: New corneal peripheral ulcer left eye - autoimmune? Herpes simples virus? -3-month dissolvable collagen plug size 0.2 placed upper and lower lids left eye 01/30/22 -geldrops to 2 times a day left eye -erythromycin ointment three times a day left eye -will check for Anti-nuclear antibody and Herpes simples virus 02/27/22--> Spoke with patient. Advised her to continue with the above plan and to keep her 03/14/[address] Eugene Patient voiced understanding and states that everything is going well. Janet Rivero RN March 02, 2022 10:47 AM * Telephone Encounter - Kan Nielson - 03/02/2022 10:29 AM EDT The patient reports that her bloodwork came back negative and was asking if she needed to do anything further as she received a recent diagnosis of a corneal ulcer from Dr. Eugene. Please advise. documented in this encounterFirelands Regional Medical Center06-28-2022 History of Present illness Narrative* Jonathon Eugene MD - 02/27/2022 3:17 PM EDT Assessment and Plan 1. Photopsia of left eye -sees rainbows when she lifts her eyelids and stares at window with sunlight out -feels that it improved with painting over the superior peripheral iridotomy left eye -right eye is better seeing eye per patient. Very tender to touch and unable to try painting over that area 2. Primary open angle glaucoma (POAG) of both eyes, severe stage 3. 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 Ramos Plan: New corneal peripheral ulcer left eye - autoimmune? Herpes simples virus? -3-month dissolvable collagen plug size 0.2 placed upper and lower lids left eye 01/30/22 -geldrops to 2 times a day left eye -erythromycin ointment three times a day left eye -will check for Anti-nuclear antibody and Herpes simples virus 02/27/22--> -follow-up 1 week for valeriy ring and discussion of photopsias options: 1. Tinted lenses - patient not interested in wearing glasses, although I stressed to her importanceof protecting her eyes 2. Iris-painted contact lens - not interested in having eye color change 3. Corneal tattoo - either manual or with refractive surgery. Risk of inflammation, Foreign body sensation, increased pain in already painful/tender eye, fades over time 4. Cataract surgery with suturing of peripheral iridotomy - concern for complex surgery in already fragile eye with advanced glaucoma 5. Botox/induce ptosis? -will try Upneeq once a day to see if helps with photopsias -follow-up 2-3 weeks / sooner as needed I have confirmed and edited as necessary the relevant ophthalmic history, ROS, and the neuro exam findings as obtained by others. I have seen and examined Allie Lynn. I have discussed the case and the management of this patient's care with the Resident/Fellow, if applicable. I also have reviewed and agree with the assessment and plan as stated above and agree withall of its relevant components. Jonathon Eugene MD documented in this encounterFirelands Regional Medical Center06-11-2022 Miscellaneous Notes* Telephone Encounter - Aleksandra Min LPN - 02/10/2022 11:58 AM EDT Patient notified on mychart. * Telephone Encounter - Lowell Kelly APRN.CNP - 02/10/2022 11:20 AM EDT No growth for urine culture. If symptoms persist then follow up with PCP Please notify thank you documented in this encounterFirelands Regional Medical Center06-10-2022 Miscellaneous Notes* Telephone Encounter - Mary Goodwin Pss - 02/09/2022 10:05 AM EDT Pharmacy verified in Epic Patient has been identified by name and date of : Yes Patient aware RX will be sent to pharmacy. No need to notify patient. Patient phones for refill(s): Pending Prescriptions Disp Refills CYCLOBENZAPRINE 10 MG TABLET 180 tablet 3 Sig: Take 1 tablet by mouth twice daily as needed. WALTER: No Date of last office visit : 12/25/2021 Date of next office visit : 04/02/2022 Last 2 Encounter Wt Readings: Date: Wt: 12/25/2021 73 kg (161 lb) 12/04/2021 74.4 kg (164 lb) Not applicable Please advise. Mary Goodwin Pss documented in this encounterFirelands Regional Medical Center06-09-2022 Miscellaneous Notes* Telephone Encounter - Janet Rivero RN - 02/08/2022 11:30 AM EDT Received call from patient. Reviewed the options available for Upneeq. Patient states due to being on disability she is unable to pay out of pocket for the medication. Asks that I inform Dr. Eugene that she wishes to discuss lid surgery further. Thanked us for looking into the medication for her. Janet Rivero RN February 08, 2022 11:32 AM * Telephone Encounter - Janet Rivero RN - 02/08/2022 9:47 AM EDT Left message for patient to call office to obtain information below. Janet Rivero RN February 08, 2022 9:48 AM * Telephone Encounter - Janet Rivero RN - 02/08/2022 8:55 AM EDT Obtained information concerning [employer]. It is not covered by most insurance companies. [employer] offers pricing of over $200.00 for all Pharmacies. [employer] (MM) does NOT cover it. The head housekeeper of [employer] recommends using an on-line Pharmacy, [facility]. They DO NOT submit to insurance. It is an out of pocket cost for the patient of $150.00 for a box of 30 vials which is aone month supply. If an alternative is not available, I will reach out to patient with the above information to see if she wants to proceed with obtaining the drops. Janet Rivero RN February 08, 2022 9:05 AM * Telephone Encounter - Emy Nix Pss - 02/07/2022 3:35 PM EDT Patient called stating that the [employer] is not covered by her insurance. Wants to know if there is an alternative that she can use? documented in this encounterFirelands [facility] Medical Center05-13-2022 Miscellaneous Notes* Telephone Encounter - Mary Tamez RN - 01/12/2022 10:46 AM EDT Patient last seen for annual exam on 12/04/21. Needs a new RX for Prempro. Out of refills. RX pending. Pending Prescriptions Disp Refills CONJ ESTROGEN-MEDROXYPROGESTERONE 0.45 MG-1.5 MG TABLET 84 tablet 2 Sig: Take 1 tablet by mouth once daily. WALTER: No Mary Tamez RN documented in this encounterFirelands Regional Medical Center04-25-2022 History of Present illness Narrative* Ifeoma Davis MD - 12/25/2021 1:17 PM EDT Reason for Visit Patient presents with: Established Patient: follow up- needs MRA per and discuss meds,H/A's Allie Lynn is a 51 year old female who presents here today for Above Complaints.. Health Maintenance COVID-19 VACCINE(1) HEPATITIS C SCREENING HIV SCREENING DTAP,TDAP,TD(1 - Tdap) SHINGRIX VACCINE(1 of 2) DEPRESSION SCREENING HPI Had 2 trabeculectomies, one on either eye, and her pressures are down from 30 to 10. She is now getting her cornea looked into. She recently had some dizziness, been to ER and then to ENT. At er did the epleys maneuver, She was not really much better later than evening, tried the meclizine and went to see ENT the nextfew days Who noted she needs to have an MRA of the brain. She also has daily headaches daily and has been going on for a month now, since the time she went to emergency room..some numbness and tingling in the neck, but mostly the headache is in the back of her head. Right now she has a headache which is still dull, she is baseline sensitive to light, she has to shield her eyes if she starts watering. Not much intolerance to noise. No problem-specific Assessment & Plan notes found for this encounter. PAST MEDICAL HISTORY Diagnosis Date Anemia Angioid streaks Coronary artery disease Fibromyalgia GERD (gastroesophageal reflux disease) Glaucoma Macular degeneration disease bilateral Mitral prolapse per Mitral valve disorders(424.0) Mitral valve stenosis and aortic valve stenosis Myalgia and myositis, unspecified PXE (pseudoxanthoma elasticum) Rheumatic heart disease, unspecified Unspecified essential hypertension PAST SURGICAL HISTORY Procedure Laterality Date ARTHROSCOPY KNEE DIAGNOSTIC W/WO SYNOVIAL BX SPX 1995 Arthroscopy, knee AVASTIN (BEVACIZUMAB) 1.25MG INTRAVITREAL INJECTION OD (RIGHT EYE) Right x 5 (03/12/17) DELIVERY ONLY 1988, 1991, 1993 , low cervical-x 3 COLONOSCOPY FLX DX W/COLLJ SPEC WHEN PFRMD 06/22/[address] MAXILLOFAC/SINUS 06/29/2015 normal ENDOMETRIAL BX W/WO ENDOCERVIX BX W/O DILAT SPX 02/18/2012 ESOPHAGOGASTRODUODENOSCOPY TRANSORAL DIAGNOSTIC 02/03/2018 EGD INCISION OF EYE, TRABECULECTOMY Right 10/26/2021 LASER SELECTA 2 TRABECULOPLASTY Left 01/08/2020 LASER TRABECULOPLASTY OD (RIGHT EYE) Right 10/26/2021 S BALLOON,UTERINE ABLATION [id number] FAMILY HISTORY Problem Relation Age of Onset Heart Father Age 61 Heart Maternal Grandfather Cancer Paternal Grandmother Breast Cancer Maternal Aunt 55 ovarian cancer Heart Son MS Ovarian cancer Maternal Grandmother Glaucoma No Family History Detached Retina No Family History Macular Degen No Family History Blindness No Family History Amblyopia No Family History Social History Tobacco Use Smoking status: Never Smoker Smokeless tobacco: Never Used Vaping Use Vaping Use: Never used Substance Use Topics Alcohol use: No Drug use: No Past medical history, appointments, medications, allergies reviewed. Pertinent Lab/Diagnostic Studies are reviewed and discussed today Current Outpatient Medications: traZODone (DESYREL) 50 mg tablet diclofenac (VOLTAREN) 0.1 % ophthalmic solution omeprazole (PRILOSEC) 20 mg capsule lisinopril-hydroCHLOROthiazide (PRINZIDE,ZESTORETIC) 10-12.5 mg per tablet fluticasone (FLONASE) 50 mcg/actuation nasal spray atorvastatin (LIPITOR) 40 mg tablet meloxicam (MOBIC) 15 mg tablet conjugated estrogens-medroxyPROGESTERone (PREMPRO) 0.45-1.5 mg per tablet cyclobenzaprine (FLEXERIL) 10 mg tablet aspirin, enteric coated (ASPIR-LOW) 81 mg EC tablet Review of Systems CONSTITUTIONAL: No fevers, chills night sweats, unintended weight loss CARDIOVASCULAR: No chest pain, dyspnea, palpitations, orthopnea, PND, ankle edema. PULM: No dyspnea, unexplained cough. GI: No dysphagia/odynophagia, problematic reflux, constipation, diarrhea, changes in stool habits, hematochezia, melena. : No new urinary complaints, including dysuria, gross hematuria or pyuria. NEURO: No new balance problems, peripheral weakness/paresthesias or numbness of concern. Physical Exam BP 132/76 (BP Site: Left Arm, BP Position: Sitting, BP Cuff Size: Large Adult) Pulse 100 Temp 36.9 C (98.5 F) Resp 12 Ht 152.4 cm (5') Wt 73 kg (161 lb) SpO2 97% BMI 31.44 kg/m General appearance: Well appearing, alert, in no acute distress, well nourished. Skin: Skin color, texture, turgor normal, no suspicious rashes or lesions Head: Normocephalic, no masses, lesions, tenderness or abnormalities Eyes: Anicteric sclera. Pupils are equally round and reactive to light. Extraocular movements are intact. Lungs: Lungs clear to auscultation. No wheezing, rhonchi, rales Heart: RRR without murmur, gallop, or rubs. Neuro exam was grossly normal. ASSESSMENT/PLAN: 1. PXE (pseudoxanthoma elasticum) - ICD9: 757.39, ICD10: Q82.8 (primary diagnosis) - MRI BRAIN WO/W IVCON 2. Vertigo - ICD9: 780.4, ICD10: R42 - MRI BRAIN WO/W IVCON 3. Memory deficits - ICD9: 780.93, ICD10: R41.3 - MRI BRAIN WO/W IVCON 4. New daily persistent headache - ICD9: 339.42, ICD10: G44.52 - MRI BRAIN WO/W IVCON 5. Chronic mixed headache syndrome - ICD9: 339.89, ICD10: G44.89 - MRI BRAIN WO/W IVCON Ifeoma Davis MD documented in this encounterFirelands Regional Medical Center04-19-2022 History of Present illness Narrative* Cynthia Ramos MD - 12/19/2021 2:16 PM EDT Tmax 28 , 28 03/10/2019 ; Pachy 543 , 540 Family history Gonioscopy 03/10/2019 PTM OU with 2+ TMP Lasers and surgeries OD multiple injections; SLT 180 (inferior) 01/15/2020 (IOP 28--> 21); SLT superior 180 05/09/2021 (IOP 26-->19); TBX 10/26/2021 (IOP 24) OS multiple injections; SLT 180 (inferior angle) 01/08/2020 (IOP 28-->21); SLT superior 180 05/09/2021 (IOP 23-->22); TBX OS 09/14/2021 (IOP 29) Ocular Medication Intol, Non-efficacy, barriers cosopt - not effective Timolol - not effective cosopt ? Effectiveness rhopressa ineffective Acetazolamide/nepataze - SOB, fatigue, weight loss, memory issues Generic brimonidine 0.2% and alphagan-P - dermatitis and body rash (no symptoms with alphagan-P) ALHAJI allergy Dorzolamide-timolol dermatitis body rash Currently using prednisolone OD 2 x daily Testing -- HVF 04/07/2019 OD central scotoma; OS cecocentral scotoma, not centered, low reliability -- OCT 03/10/2019 OD mod sup>mild inf thinning, temp artifact; OS mild sup/inf thinning -- GCA 03/10/2019 thinning OU/retinal atrophy (Z09) Follow up (primary encounter diagnosis) Comment: Doing well nearly 1 month TBX OD 10/26/2021, filtering well and IOP controlled surgically; bleb architecture good; iridotomy shallower profile than left but patient now having 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 Good architecture, good IOP. No choroidals. Patient still has positive dysphotopsia from large superior iridectomy - saw Dr. Eugene who discussed various options including cornea tatoo Cleared from my standpoint to pursue intervention with Dr. Eugene as sees fit Plan: Monitor without topical therapy Continue emiliano glasses for glare OK to use diclofenac 2 x daily as needed for eye ache OK to use refresh in both eyes as often as needed (H40.1134) Primary open angle glaucoma (POAG) of both eyes, indeterminate stage Comment: 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 H/o Steroid response; multiple gtt allergies. 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 Patient feels that both eyes have declined. Atrophy on exam and OCT, no edema again 02/07/2021. Seen by Dr. Grant Plan: f/u with Dr. 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 Eugene to discuss options for positive dysphotopsia I have confirmed and edited as necessary the relevant ophthalmic history, ROS, and the neuro exam findings as obtained by others. I have seen and examined this patient. I have discussed the case and the management of this patient's care with the Resident/Fellow/Nuclear Physicist, if applicable. I also have reviewed and agree with the assessment and plan as stated above and agree with all of its relevant components. Cynthia Ramos MD December 19, 2021 2:17 PM documented in this encounterFirelands Regional Medical Center04-11-2022 Miscellaneous Notes* Telephone Encounter - Dara Valdez RN - 12/11/2021 12:14 PM EDT Patient call and is notified of this and set up appointment with provider on 12/18/2021. Patient encouraged that if symptoms get worse to go to ER. Patient verbalized understanding. Dara Valdez RN * Telephone Encounter - Ifeoma Davis MD - 12/07/2021 10:14 PM EDT Please set patient with David anna or me to work this out for the patient * Telephone Encounter - David Anna APRN.CNP - 12/07/2021 4:00 PM EDT Patient will need to be evaluated for this. Thank you David Anna APRN.CNP * Telephone Encounter - Tori Morales Ma - 12/07/2021 1:47 PM EDT Spoke with patient, Dr chavez is asking PCP to order MRA, patient has DX of PXE, slurred speech, headaches, fall risk and recent hospitalization of vertigo. He is asking this to be done before patient's 12/25 appointment with PCP. * Telephone Encounter - David Anna APRN.CNP - 12/07/2021 12:31 PM EDT Is ENT ordering this and she is asking our opinion, or was ENT telling her to get order from PCP. Thank you David Anna APRN.CNP * Telephone Encounter - Mary Lofton - 12/07/2021 9:06 AM EDT Pt called stating that Dr. Chavez is suggesting an MRA brain be order due to vertigo. documented in this encounterFirelands Regional Medical Center04-04-2022 History of Present illness Narrative* Destiney Mckeon APRN.CNP - 12/04/2021 1:06 PM EDT Allie is a 51 year old who presents for an annual gynecologic exam without complaints. Postmenopausal: ablation 2011- no bleeding HRT use: Yes, prempro Last Pap: 07/03/2019 normal HPV: 07/01/2019 negative History of abnormal pap: Yes Last mammogram: 2020 normal History of abnormal mammogram: No Sexually active: Yes Pain with intercourse: Yes- dryness Postcoital bleeding: No Hot flashes: rare Night sweats: some OB History T0 L3 SAB0 IAB0 Ectopic0 Multiple0 Live Births0 Network Project Manager History LMP: Ablation Age at Menarche: Age at First : Age at Menopause: Network Project Manager History Comments: Sexual Activity: Not Asked; Male Contraception: No contraception data on record PAST MEDICAL HISTORY Diagnosis Date Anemia Angioid streaks Coronary artery disease Fibromyalgia GERD (gastroesophageal reflux disease) Glaucoma Macular degeneration disease bilateral Mitral prolapse per Mitral valve disorders(424.0) Mitral valve stenosis and aortic valve stenosis Myalgia and myositis, unspecified PXE (pseudoxanthoma elasticum) Rheumatic heart disease, unspecified Unspecified essential hypertension PAST SURGICAL HISTORY Procedure Laterality Date ARTHROSCOPY KNEE DIAGNOSTIC W/WO SYNOVIAL BX SPX 1995 Arthroscopy, knee AVASTIN (BEVACIZUMAB) 1.25MG INTRAVITREAL INJECTION OD (RIGHT EYE) Right x 5 (03/12/17) DELIVERY ONLY 1988, 1991, 1993 , low cervical-x 3 COLONOSCOPY FLX DX W/COLLJ SPEC WHEN PFRMD 06/22/[address] MAXILLOFAC/SINUS 06/29/2015 normal ENDOMETRIAL BX W/WO ENDOCERVIX BX W/O DILAT SPX 02/18/2012 ESOPHAGOGASTRODUODENOSCOPY TRANSORAL DIAGNOSTIC 02/03/2018 EGD INCISION OF EYE, TRABECULECTOMY Right 10/26/2021 LASER SELECTA 2 TRABECULOPLASTY Left 01/08/2020 LASER TRABECULOPLASTY OD (RIGHT EYE) Right 10/26/2021 S BALLOON,UTERINE ABLATION [id number] FAMILY HISTORY Problem Relation Age of Onset Heart Father Age 61 Heart Maternal Grandfather Cancer Paternal Grandmother Breast Cancer Maternal Aunt 55 ovarian cancer Heart Son MS Ovarian cancer Maternal Grandmother Glaucoma No Family History Detached Retina No Family History Macular Degen No Family History Blindness No Family History Amblyopia No Family History SOCIAL HISTORY Social History Tobacco Use Smoking status: Never Smoker Smokeless tobacco: Never Used Vaping Use Vaping Use: Never used Substance Use Topics Alcohol use: No Drug use: No REVIEW OF SYSTEMS Abdomen: No abdominal pain, nausea, vomiting, diarrhea + constipation. No bloating, early satiety, indigestion, or increased flatulence. Bladder: No dysuria, gross hematuria, urinary frequency, urinary urgency, + incontinence Breast: No breast lumps, nipple d/c, overlying skin changes, redness or skin retraction Allergies and current medication updated:Yes EXAM: There were no vitals taken for this visit. GENERAL: pleasant, female in no apparent distress HEENT: Normocephalic, atraumatic, mucus membranes moist and no lesions NECK: Supple, full range of motion, no adenopathy and thyroid normal DERMATOLOGY: Normal, without lesions, non-icteric and non-hirsute BREAST: soft, non-tender, symmetric, no dominant mass, normal nipple-areolar complex, no lymphadenopathy and no nipple discharge CHEST: Normal inspiratory effort ABDOMEN: soft, non-tender and no masses PELVIC: external genitalia normal, normal Bartholin's glands, urethra, Hoxie's glands, no vulvar lesions, no cervical lesions, physiologic discharge present, normal appearing perineal body and perianal region BIMANUAL: uterus normal size, shape and consistency, no adnexal masses, non- tender and no cervical motion tenderness RECTOVAGINAL: deferred. NEURO: alert and oriented x3,exam grossly non-focal EXTREMITIES: normal ASSESSMENT/PLAN: 1) Health maintenance: Pap/HPV screening no longer needed Mammogram up to date Nutrition, exercise and routine health maintenance exams reviewed. Calcium/Vitamin D supplementation information provided. Colon cancer screening: up to date with screening 2) Follow up one year or sooner as needed Destiney Mckeon APRN.DEBORAH documented in this encounterFirelands Regional Medical Center03-29-2022 History of Present illness Narrative* Cynthia Ramos MD - 11/28/2021 3:15 PM EDT Tmax 28 , 28 03/10/2019 ; Pachy 543 , 540 Family history Gonioscopy 03/10/2019 PTM OU with 2+ TMP Lasers and surgeries OD multiple injections; SLT 180 (inferior) 01/15/2020 (IOP 28--> 21); SLT superior 180 05/09/2021 (IOP 26-->19); TBX 10/26/2021 (IOP 24) OS multiple injections; SLT 180 (inferior angle) 01/08/2020 (IOP 28-->21); SLT superior 180 05/09/2021 (IOP 23-->22); TBX OS 09/14/2021 (IOP 29) Ocular Medication Intol, Non-efficacy, barriers cosopt - not effective Timolol - not effective cosopt ? Effectiveness rhopressa ineffective Acetazolamide/nepataze - SOB, fatigue, weight loss, memory issues Generic brimonidine 0.2% and alphagan-P - dermatitis and body rash (no symptoms with alphagan-P) ALHAJI allergy Dorzolamide-timolol dermatitis body rash Currently using prednisolone OD 2 x daily Testing -- HVF 04/07/2019 OD central scotoma; OS cecocentral scotoma, not centered, low reliability -- OCT 03/10/2019 OD mod sup>mild inf thinning, temp artifact; OS mild sup/inf thinning -- GCA 03/10/2019 thinning OU/retinal atrophy (Z09) Follow up (primary encounter diagnosis) Comment: Nearly 2 x weeks s/p TBX OD 10/26/2021, filtering well; iridotomy shallower profile than left but patient now having 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 Good architecture, good IOP. No choroidals. Patient still has shimmering in vision, suspect positive dysphotopsia from large superior iridectomy - Dr. Eugene says he would recommend trial of corneal painting over iridotomy to assess whether this is the problem - scheduled later this month Plan: Decrease prednisolone (pink/white) 1 drop RIGHT EYE 1 x daily for 1 week then stop OK to use diclofenac 2 x daily as needed for eye ache OK to use refresh in both eyes as often as needed Stop restrictions 2 weeks after surgery (H40.1134) Primary open angle glaucoma (POAG) of both eyes, indeterminate stage Comment: 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 H/o Steroid response; multiple gtt allergies. 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 Patient feels that both eyes have declined. Atrophy on exam and OCT, no edema again 02/07/2021. Seen by Dr. Grant Plan: f/u with Dr. 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 Plan: f/u as planned RTC f/u as planned, refraction * Cynthia Ramos MD - 11/28/2021 2:50 PM EDT Tmax 28 , 28 03/10/2019 ; Pachy 543 , 540 Family history Gonioscopy 03/10/2019 PTM OU with 2+ TMP Lasers and surgeries OD multiple injections; SLT 180 (inferior) 01/15/2020 (IOP 28--> 21); SLT superior 180 05/09/2021 (IOP 26-->19); TBX 10/26/2021 (IOP 24) OS multiple injections; SLT 180 (inferior angle) 01/08/2020 (IOP 28-->21); SLT superior 180 05/09/2021 (IOP 23-->22); TBX OS 09/14/2021 (IOP 29) Ocular Medication Intol, Non-efficacy, barriers cosopt - not effective Timolol - not effective cosopt ? Effectiveness rhopressa ineffective Acetazolamide/nepataze - SOB, fatigue, weight loss, memory issues Generic brimonidine 0.2% and alphagan-P - dermatitis and body rash (no symptoms with alphagan-P) ALHAJI allergy Dorzolamide-timolol dermatitis body rash Currently using diclofenac OU as needed Testing -- HVF 04/07/2019 OD central scotoma; OS cecocentral scotoma, not centered, low reliability -- OCT 03/10/2019 OD mod sup>mild inf thinning, temp artifact; OS mild sup/inf thinning -- GCA 03/10/2019 thinning OU/retinal atrophy (Z09) Follow up (primary encounter diagnosis) Comment: Bleb filtering well s/p TBX OD 10/26/2021, good architecture; surgically controlled s/p TBX OS 09/14/2021. Good architecture, good IOP. 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 Eugene offered trial of painted CL, cornea tatoo, or iris suturing in conjunction with cataract surgery I advise against any CL use post trabeculectomy; additional surgery should be postponed for at least 3 months post surgery to lower risk of bleb failure Plan: OK to use diclofenac 2 x daily as needed for eye ache OK to use refresh in both eyes as often as needed No rubbing eyes Update Mrx (H4.9292) Primary open angle glaucoma (POAG) of both eyes, indeterminate stage Comment: 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 H/o Steroid response; multiple gtt allergies. 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 Patient feels that both eyes have declined. Atrophy on exam and OCT, no edema again 02/07/2021. Seen by Dr. Grant Plan: f/u with Dr. 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 Plan: update Mrx as above RTC f/u as planned VaTa I have confirmed and edited as necessary the relevant ophthalmic history, ROS, and the neuro exam findings as obtained by others. I have seen and examined this patient. I have discussed the case and the management of this patient's care with the Resident/Fellow/Nuclear Physicist, if applicable. I also have reviewed and agree with the assessment and plan as stated above and agree with all of its relevant components. Cynthia Ramos MD December 03, 2021 3:53 PM documented in this encounterFirelands Regional Medical CenterEvaluation note* Diagnosis Follow-up exam- Primary Unspecified follow-up examination documented in this encounter [facility]* Diagnosis Encounter for gynecological examination (general) (routine) without abnormal findings- Primary Encounter for screening mammogram for breast cancer documented in this encounter [facility] [place] [facility]* Diagnosis Follow-up exam- Primary Unspecified follow-up examination Photopsia Other visual distortions and entoptic phenomena 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 documented in this encounter [facility]* Diagnosis 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 Vertigo Dizziness and giddiness Memory deficits Memory loss New daily persistent headache Chronic mixed headache syndrome Other headache syndromes documented in this encounter [facility]* Diagnosis 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 injury Post-traumatic headache, unspecified documented in this encounter [facility]* Diagnosis Photopsia- Primary Other visual distortions and entoptic phenomena Primary open angle glaucoma (POAG) of both eyes, indeterminate stage Combined form of age-related cataract, 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 Marginal corneal ulcer [facility] Photopsia- Primary Other visual distortions and entoptic phenomena Primary open angle glaucoma (POAG) of both eyes, indeterminate stage Combined form of age-related cataract, 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 Marginal corneal ulcer 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 [facility]* Diagnosis Medication management Encounter for long-term (current) use of other medications [facility]* Diagnosis Photopsia- Primary Other visual distortions and entoptic phenomena Combined 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 cataract of both eyes Other and combined forms of senile cataract Primary open angle glaucoma (POAG) of both eyes, indeterminate stage Combined form of age-related cataract, both eyes [facility] Diagnosis Primary open angle glaucoma (POAG) of both eyes, indeterminate stage- Primary Corneal dellen of left eye Nuclear senile cataract of right eye [facility] Diagnosis Combined 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- Primary Other and combined forms of senile cataract Combined 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 cataract of left eye Other and combined forms of senile cataract [facility]* Diagnosis Pain in both hands- Primary Trigger middle finger of left hand Trigger finger (acquired) Trigger ring finger of right hand Trigger finger (acquired) Combined 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 Other and combined forms of senile cataract Photopsia Other visual distortions and entoptic phenomena [facility] Diagnosis 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 Obesity, Class I, BMI 30-34.9 Obesity, unspecified Combined 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 Other and combined forms of senile cataract Photopsia Other visual distortions and entoptic phenomena [facility] Diagnosis Combined 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 Other and combined forms of senile cataract Photopsia Other visual distortions and entoptic phenomena [facility] Diagnosis Pseudophakia- Primary Lens replaced by other means [facility] Acute cough- Primary [facility] Diagnosis Photopsia- Primary Other visual distortions and entoptic phenomena Pseudophakia, right eye Lens replaced by other means Combined 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 cataract, left eye Primary open angle glaucoma (POAG) of both eyes, indeterminate stage 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 [facility] Diagnosis Pseudophakia, right eye- Primary Lens replaced by other means [facility] Diagnosis Pseudophakia, right eye- Primary Lens replaced by other means [facility]* Diagnosis Functional dyspepsia Dyspepsia and other specified disorders of function of stomach Nausea Nausea alone [facility] [place] [facility] Diagnosis 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 injury Post-traumatic headache, unspecified [facility]* Diagnosis Blindness right eye category 3, blindness left eye category 4- Primary Pseudophakia, right eye Lens replaced by other means Combined 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 cataract, left eye Hyperopia of right eye [facility]* Diagnosis Blindness right eye category 3, blindness left eye category 4- Primary Difficulty with household tasks Impaired mobility and personal care Personal care impairment Other specified conditions influencing health status Complaints of difficulty with reading Developmental reading disorder, unspecified [facility] Diagnosis Annual physical exam- Primary Routine general medical examination at a health care facility [facility]* Diagnosis Abnormal mammogram- Primary Abnormal mammogram, unspecified [facility] [place] [facility] Diagnosis Pain in both hands- Primary [facility] Diagnosis Trigger ring finger of right hand- Primary Trigger finger (acquired) Trigger middle finger of left hand Trigger finger (acquired) Trigger ring finger of right hand Trigger finger (acquired) Trigger middle finger of left hand Trigger finger (acquired) [facility]* Diagnosis Nuclear senile cataract of left eye- Primary Primary open angle glaucoma (POAG) of left eye, severe stage Trigger ring finger of right hand Trigger finger (acquired) Trigger middle finger of left hand Trigger finger (acquired) [facility]* Diagnosis Gastroesophageal reflux disease with esophagitis, unspecified whether hemorrhage- Primary Pre-operative clearance Preoperative examination, unspecified Trigger finger, unspecified finger, unspecified laterality Primary hypertension Unspecified essential hypertension Mixed hyperlipidemia PAD (peripheral artery disease) (HCC) Peripheral vascular disease, unspecified 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 Hot flashes Symptomatic menopausal or female climacteric states Trigger ring finger of right hand Trigger finger (acquired) Trigger middle finger of left hand Trigger finger (acquired) Nuclear senile cataract of left eye Primary open angle glaucoma (POAG) of left eye, severe stage [facility] Diagnosis Difficulty with household tasks- Primary Blindness right eye category 3, blindness left eye category 4 Impaired mobility and personal care Personal care impairment Other specified conditions influencing health status Complaints of difficulty with reading Developmental reading disorder, unspecified Trigger ring finger of right hand Trigger finger (acquired) Trigger middle finger of left hand Trigger finger (acquired) Nuclear senile cataract of left eye Primary open angle glaucoma (POAG) of left eye, severe stage [facility] Diagnosis Trigger ring finger of right hand- Primary Trigger finger (acquired) Trigger middle finger of left hand Trigger finger (acquired) Trigger ring finger of right hand Trigger finger (acquired) Trigger middle finger of left hand Trigger finger (acquired) Nuclear senile cataract of left eye Primary open angle glaucoma (POAG) of left eye, severe stage [facility] Diagnosis Nuclear sclerotic cataract of left eye- Primary Senile nuclear sclerosis Trigger ring finger of right hand Trigger finger (acquired) Trigger middle finger of left hand Trigger finger (acquired) Nuclear senile cataract of left eye Primary open angle glaucoma (POAG) of left eye, severe stage [facility]* Diagnosis Blindness right eye category 3, blindness left eye category 4- Primary Complaints of difficulty with reading Developmental reading disorder, unspecified Difficulty with household tasks Impaired mobility and personal care Personal care impairment Other specified conditions influencing health status Trigger ring finger of right hand Trigger finger (acquired) Trigger middle finger of left hand Trigger finger (acquired) Nuclear senile cataract of left eye Primary open angle glaucoma (POAG) of left eye, severe stage [facility]* Diagnosis Follow-up exam- Primary Unspecified follow-up examination [facility] Diagnosis Trigger ring finger of right hand- Primary Trigger finger (acquired) Trigger middle finger of left hand Trigger finger (acquired) [facility] [place] [facility] Diagnosis Follow-up exam- Primary Unspecified follow-up examination [facility] [place] [facility]* Diagnosis Follow-up exam- Primary Unspecified follow-up examination Vitreous prolapse of left eye Vitreous prolapse [facility] [place] noteNo assessment information availableWAvita [facility] Work Phone: [facility]* Diagnosis Secondary glaucoma, indeterminate stage, 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 Pseudophakia of both eyes Lens replaced by other means [facility] [place] [facility]* Diagnosis Gastroesophageal reflux disease, unspecified whether esophagitis present- Primary Change in bowel habits Other symptoms involving digestive system [facility] [place] [facility]* Diagnosis Legally blind- Primary Legal blindness, as defined in [place] [facility] [place] [facility]* Diagnosis Numbness and tingling in right hand- Primary Disturbance of skin sensation [facility] [place] [facility]* Diagnosis Trigger finger, unspecified finger, unspecified laterality [facility] [place] [facility]* Diagnosis Abnormal mammogram Abnormal mammogram, unspecified [facility] [place] [facility]* Diagnosis Pain in both hands [facility]* Diagnosis Abnormal mammogram Abnormal mammogram, unspecified [facility] [place] [facility]* Diagnosis Encounter for screening mammogram for breast cancer [facility] [place] [facility]* Diagnosis Secondary glaucoma, indeterminate stage, 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 [facility] Diagnosis Encounter for screening mammogram for breast cancer [facility] Diagnosis Trigger finger, unspecified finger, unspecified laterality [facility] Diagnosis Bacterial sinusitis- Primary Unspecified sinusitis (chronic) [facility] Diagnosis Onset Date Resolution Status Injury of right rotator cuff acute [facility] Work Phone: Evaluation note* Diagnosis Encounter for gynecological examination (general) (routine) without abnormal findings- Primary Encounter for screening for human papillomavirus (HPV) Special screening examination for human papillomavirus (HPV) Pap smear for cervical cancer screening Screening for malignant neoplasm of the cervix Encounter for screening mammogram for breast cancer [facility] [place] [facility]* Diagnosis 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 injury Post-traumatic headache, unspecified 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 [place] [facility]* Diagnosis Annual wellness visit- Primary 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 injury Post-traumatic headache, unspecified Primary hypertension Unspecified essential hypertension Trigger finger, unspecified finger, unspecified laterality Special screening examination for viral disease Special screening examination for unspecified viral disease Screening for HIV (human immunodeficiency virus) Special screening examination for other specified viral diseases Legally blind Legal blindness, as defined in [place] Mixed hyperlipidemia documented in this encounter [facility] note* Diagnosis Allergic contact dermatitis due to plants, except food- Primary Contact dermatitis and other eczema due to plants (except food) [facility] [place] [facility]* Diagnosis Establishing care with new doctor, encounter for- Primary Other reasons for seeking consultation 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 Macular degeneration Macular degeneration (senile) of retina, unspecified Legally blind Legal blindness, as defined in [place] Hypertension Unspecified essential hypertension Hypokalemia- Primary Hypopotassemia Hypertension Unspecified essential hypertension Flank pain Abdominal pain, unspecified site Annual physical exam- Primary Routine general medical examination at a health care facility 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, bilateral Essential hypertension Unspecified essential hypertension Mixed hyperlipidemia BPPV (benign paroxysmal positional vertigo), right Encounter for screening mammogram for high-risk patient 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 Legally blind Legal blindness, as defined in [place] Fibromyalgia Mylagia and myositis, unspecified Primary insomnia Persistent disorder of initiating or maintaining sleep Vitamin D deficiency Unspecified vitamin D deficiency 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 injury Post-traumatic headache, unspecified [facility] [place] [facility]* Diagnosis Establishing care with new doctor, encounter for- Primary Other reasons for seeking consultation 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 Macular degeneration Macular degeneration (senile) of retina, unspecified Legally blind Legal blindness, as defined in [place] Hypertension Unspecified essential hypertension Hypokalemia- Primary Hypopotassemia Hypertension Unspecified essential hypertension Flank pain Abdominal pain, unspecified site Annual physical exam- Primary Routine general medical examination at a health care facility 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, bilateral Essential hypertension Unspecified essential hypertension Mixed hyperlipidemia BPPV (benign paroxysmal positional vertigo), right Encounter for screening mammogram for high-risk patient 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 Legally blind Legal blindness, as defined in [place] Fibromyalgia Mylagia and myositis, unspecified Primary insomnia Persistent disorder of initiating or maintaining sleep Vitamin D deficiency Unspecified vitamin D deficiency Gastroesophageal reflux disease, unspecified whether esophagitis present Change in bowel habits Other symptoms involving digestive system [facility] [place] [facility]* Diagnosis Legally blind- Primary Legal blindness, as defined in [place] 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 Trigger finger, unspecified finger, unspecified laterality Mixed hyperlipidemia Primary hypertension Unspecified essential hypertension Swelling of both hands Gastroesophageal reflux disease with esophagitis, unspecified whether hemorrhage [facility] Diagnosis Establishing care with new doctor, encounter for- Primary Other reasons for seeking consultation 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 Macular degeneration Macular degeneration (senile) of retina, unspecified Legally blind Legal blindness, as defined in [place] Hypertension Unspecified essential hypertension Hypokalemia- Primary Hypopotassemia Hypertension Unspecified essential hypertension Flank pain Abdominal pain, unspecified site Annual physical exam- Primary Routine general medical examination at a health care facility 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, bilateral Essential hypertension Unspecified essential hypertension Mixed hyperlipidemia BPPV (benign paroxysmal positional vertigo), right Encounter for screening mammogram for high-risk patient 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 Legally blind Legal blindness, as defined in [place] Fibromyalgia Mylagia and myositis, unspecified Primary insomnia Persistent disorder of initiating or maintaining sleep Vitamin D deficiency Unspecified vitamin D deficiency Encounter for screening mammogram for malignant neoplasm of breast- Primary Other screening mammogram documented in this encounter [facility]* Diagnosis Establishing care with new doctor, encounter for- Primary Other reasons for seeking consultation 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 Macular degeneration Macular degeneration (senile) of retina, unspecified Legally blind Legal blindness, as defined in [place] Hypertension Unspecified essential hypertension Hypokalemia- Primary Hypopotassemia Hypertension Unspecified essential hypertension Flank pain Abdominal pain, unspecified site Annual physical exam- Primary Routine general medical examination at a health care facility 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, bilateral Essential hypertension Unspecified essential hypertension Mixed hyperlipidemia BPPV (benign paroxysmal positional vertigo), right Encounter for screening mammogram for high-risk patient 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 Legally blind Legal blindness, as defined in [place] Fibromyalgia Mylagia and myositis, unspecified Primary insomnia Persistent disorder of initiating or maintaining sleep Vitamin D deficiency Unspecified vitamin D deficiency 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 [facility]* Diagnosis Establishing care with new doctor, encounter for- Primary Other reasons for seeking consultation 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 Macular degeneration Macular degeneration (senile) of retina, unspecified Legally blind Legal blindness, as defined in [place] Hypertension Unspecified essential hypertension Hypokalemia- Primary Hypopotassemia Hypertension Unspecified essential hypertension Flank pain Abdominal pain, unspecified site Annual physical exam- Primary Routine general medical examination at a health care facility 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, bilateral Essential hypertension Unspecified essential hypertension Mixed hyperlipidemia BPPV (benign paroxysmal positional vertigo), right Encounter for screening mammogram for high-risk patient 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 Legally blind Legal blindness, as defined in [place] Fibromyalgia Mylagia and myositis, unspecified Primary insomnia Persistent disorder of initiating or maintaining sleep Vitamin D deficiency Unspecified vitamin D deficiency Mixed hyperlipidemia Gastroesophageal reflux disease with esophagitis, unspecified whether hemorrhage [facility] [place] [facility]* Diagnosis Establishing care with new doctor, encounter for- Primary Other reasons for seeking consultation 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 Macular degeneration Macular degeneration (senile) of retina, unspecified Legally blind Legal blindness, as defined in [place] Hypertension Unspecified essential hypertension Hypokalemia- Primary Hypopotassemia Hypertension Unspecified essential hypertension Flank pain Abdominal pain, unspecified site Annual physical exam- Primary Routine general medical examination at a health care facility 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, bilateral Essential hypertension Unspecified essential hypertension Mixed hyperlipidemia BPPV (benign paroxysmal positional vertigo), right Encounter for screening mammogram for high-risk patient 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 Legally blind Legal blindness, as defined in [place] Fibromyalgia Mylagia and myositis, unspecified Primary insomnia Persistent disorder of initiating or maintaining sleep Vitamin D deficiency Unspecified vitamin D deficiency Close exposure to COVID-19 virus- Primary documented in this encounter [facility] note* Diagnosis Establishing care with new doctor, encounter for- Primary Other reasons for seeking consultation 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 Macular degeneration Macular degeneration (senile) of retina, unspecified Legally blind Legal blindness, as defined in [place] Hypertension Unspecified essential hypertension Hypokalemia- Primary Hypopotassemia Hypertension Unspecified essential hypertension Flank pain Abdominal pain, unspecified site Annual physical exam- Primary Routine general medical examination at a health care facility 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, bilateral Essential hypertension Unspecified essential hypertension Mixed hyperlipidemia BPPV (benign paroxysmal positional vertigo), right Encounter for screening mammogram for high-risk patient 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 Legally blind Legal blindness, as defined in [place] Fibromyalgia Mylagia and myositis, unspecified Primary insomnia Persistent disorder of initiating or maintaining sleep Vitamin D deficiency Unspecified vitamin D deficiency DAYSI (obstructive sleep apnea)- Primary Obstructive sleep apnea (adult) (pediatric) documented in this encounter [facility] note* Diagnosis Establishing care with new doctor, encounter for- Primary Other reasons for seeking consultation 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 Macular degeneration Macular degeneration (senile) of retina, unspecified Legally blind Legal blindness, as defined in [place] Hypertension Unspecified essential hypertension Hypokalemia- Primary Hypopotassemia Hypertension Unspecified essential hypertension Flank pain Abdominal pain, unspecified site Annual physical exam- Primary Routine general medical examination at a health care facility 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, bilateral Essential hypertension Unspecified essential hypertension Mixed hyperlipidemia BPPV (benign paroxysmal positional vertigo), right Encounter for screening mammogram for high-risk patient 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 Legally blind Legal blindness, as defined in [place] Fibromyalgia Mylagia and myositis, unspecified Primary insomnia Persistent disorder of initiating or maintaining sleep Vitamin D deficiency Unspecified vitamin D deficiency DAYSI (obstructive sleep apnea)- Primary Obstructive sleep apnea (adult) (pediatric) Blindness of both eyes Blindness of both eyes, impairment level not further specified 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 documented in this encounter [facility] note* Diagnosis Establishing care with new doctor, encounter for- Primary Other reasons for seeking consultation 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 Macular degeneration Macular degeneration (senile) of retina, unspecified Legally blind Legal blindness, as defined in [place] Hypertension Unspecified essential hypertension Hypokalemia- Primary Hypopotassemia Hypertension Unspecified essential hypertension Flank pain Abdominal pain, unspecified site Annual physical exam- Primary Routine general medical examination at a health care facility 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, bilateral Essential hypertension Unspecified essential hypertension Mixed hyperlipidemia BPPV (benign paroxysmal positional vertigo), right Encounter for screening mammogram for high-risk patient 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 Legally blind Legal blindness, as defined in [place] Fibromyalgia Mylagia and myositis, unspecified Primary insomnia Persistent disorder of initiating or maintaining sleep Vitamin D deficiency Unspecified vitamin D deficiency Vasomotor symptoms due to menopause- Primary documented in this encounter [facility] note* Diagnosis Establishing care with new doctor, encounter for- Primary Other reasons for seeking consultation 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 Macular degeneration Macular degeneration (senile) of retina, unspecified Legally blind Legal blindness, as defined in [place] Hypertension Unspecified essential hypertension Hypokalemia- Primary Hypopotassemia Hypertension Unspecified essential hypertension Flank pain Abdominal pain, unspecified site Annual physical exam- Primary Routine general medical examination at a health care facility 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, bilateral Essential hypertension Unspecified essential hypertension Mixed hyperlipidemia BPPV (benign paroxysmal positional vertigo), right Encounter for screening mammogram for high-risk patient 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 Legally blind Legal blindness, as defined in [place] Fibromyalgia Mylagia and myositis, unspecified Primary insomnia Persistent disorder of initiating or maintaining sleep Vitamin D deficiency Unspecified vitamin D deficiency Excessive daytime sleepiness- Primary Non-restorative sleep Other sleep disturbances documented in this encounter [facility] note* Diagnosis Establishing care with new doctor, encounter for- Primary Other reasons for seeking consultation 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 Macular degeneration Macular degeneration (senile) of retina, unspecified Legally blind Legal blindness, as defined in [place] Hypertension Unspecified essential hypertension Hypokalemia- Primary Hypopotassemia Hypertension Unspecified essential hypertension Flank pain Abdominal pain, unspecified site Annual physical exam- Primary Routine general medical examination at a health care facility 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, bilateral Essential hypertension Unspecified essential hypertension Mixed hyperlipidemia BPPV (benign paroxysmal positional vertigo), right Encounter for screening mammogram for high-risk patient 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 Legally blind Legal blindness, as defined in [place] Fibromyalgia Mylagia and myositis, unspecified Primary insomnia Persistent disorder of initiating or maintaining sleep Vitamin D deficiency Unspecified vitamin D deficiency Depression, unspecified depression type- Primary Encounter for immunization Need for other specified prophylactic vaccination against single bacterial disease Insomnia, unspecified type [facility] [place] [facility] Diagnosis Establishing care with new doctor, encounter for- Primary Other reasons for seeking consultation 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 Macular degeneration Macular degeneration (senile) of retina, unspecified Legally blind Legal blindness, as defined in [place] Hypertension Unspecified essential hypertension Hypokalemia- Primary Hypopotassemia Hypertension Unspecified essential hypertension Flank pain Abdominal pain, unspecified site Annual physical exam- Primary Routine general medical examination at a health care facility 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, bilateral Essential hypertension Unspecified essential hypertension Mixed hyperlipidemia BPPV (benign paroxysmal positional vertigo), right Encounter for screening mammogram for high-risk patient 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 Legally blind Legal blindness, as defined in [place] Fibromyalgia Mylagia and myositis, unspecified Primary insomnia Persistent disorder of initiating or maintaining sleep Vitamin D deficiency Unspecified vitamin D deficiency Memory impairment- Primary Memory loss Dry mouth Disturbance of salivary secretion Depression, unspecified depression type [facility] [place] [facility] Diagnosis Establishing care with new doctor, encounter for- Primary Other reasons for seeking consultation 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 Macular degeneration Macular degeneration (senile) of retina, unspecified Legally blind Legal blindness, as defined in [place] Hypertension Unspecified essential hypertension Hypokalemia- Primary Hypopotassemia Hypertension Unspecified essential hypertension Flank pain Abdominal pain, unspecified site Annual physical exam- Primary Routine general medical examination at a [facility] care facility 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, bilateral Essential hypertension Unspecified essential hypertension Mixed hyperlipidemia BPPV (benign paroxysmal positional vertigo), right Encounter for screening mammogram for high-risk patient 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 Legally blind Legal blindness, as defined in [place] Fibromyalgia Mylagia and myositis, unspecified Primary insomnia Persistent disorder of initiating or maintaining sleep Vitamin D deficiency Unspecified vitamin D deficiency Snoring- Primary Other dyspnea and respiratory abnormality Excessive daytime sleepiness Non-restorative sleep Other sleep disturbances PLMD (periodic limb movement disorder) Periodic limb movement disorder Primary hypertension Unspecified essential hypertension Angioid streaks of macula- Primary Angioid streaks of choroid [facility] Diagnosis Establishing care with new doctor, encounter for- Primary Other reasons for seeking consultation 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 Macular degeneration Macular degeneration (senile) of retina, unspecified Legally blind Legal blindness, as defined in [place] Hypertension Unspecified essential hypertension Hypokalemia- Primary Hypopotassemia Hypertension Unspecified essential hypertension Flank pain Abdominal pain, unspecified site Annual physical exam- Primary Routine general medical examination at a health care facility 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, bilateral Essential hypertension Unspecified essential hypertension Mixed hyperlipidemia BPPV (benign paroxysmal positional vertigo), right Encounter for screening mammogram for high-risk patient 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 Legally blind Legal blindness, as defined in [place] Fibromyalgia Mylagia and myositis, unspecified Primary insomnia Persistent disorder of initiating or maintaining sleep Vitamin D deficiency Unspecified vitamin D deficiency Anxiety- Primary Anxiety state, unspecified Screening for depression Encounter for screening examination for other mental health and behavioral disorders Dry mouth Disturbance of salivary secretion Insomnia, unspecified type Current moderate episode of major depressive disorder without prior episode (HCC) Angioid streaks of macula- Primary Angioid streaks of choroid documented in this encounter [facility] note* Diagnosis Establishing care with new doctor, encounter for- Primary Other reasons for seeking consultation 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 Macular degeneration Macular degeneration (senile) of retina, unspecified Legally blind Legal blindness, as defined in [place] Hypertension Unspecified essential hypertension Hypokalemia- Primary Hypopotassemia Hypertension Unspecified essential hypertension Flank pain Abdominal pain, unspecified site Annual physical exam- Primary Routine general medical examination at a health care facility 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, bilateral Essential hypertension Unspecified essential hypertension Mixed hyperlipidemia BPPV (benign paroxysmal positional vertigo), right Encounter for screening mammogram for high-risk patient 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 Legally blind Legal blindness, as defined in [place] Fibromyalgia Mylagia and myositis, unspecified Primary insomnia Persistent disorder of initiating or maintaining sleep Vitamin D deficiency Unspecified vitamin D deficiency Encounter for gynecological examination (general) (routine) without abnormal findings Encounter for screening mammogram for breast cancer documented in this encounter [facility] note* Diagnosis Establishing care with new doctor, encounter for- Primary Other reasons for seeking consultation 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 Macular degeneration Macular degeneration (senile) of retina, unspecified Legally blind Legal blindness, as defined in [place] Hypertension Unspecified essential hypertension Hypokalemia- Primary Hypopotassemia Hypertension Unspecified essential hypertension Flank pain Abdominal pain, unspecified site Annual physical exam- Primary Routine general medical examination at a health care facility 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, bilateral Essential hypertension Unspecified essential hypertension Mixed hyperlipidemia BPPV (benign paroxysmal positional vertigo), right Encounter for screening mammogram for high-risk patient 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 Legally blind Legal blindness, as defined in [place] Fibromyalgia Mylagia and myositis, unspecified Primary insomnia Persistent disorder of initiating or maintaining sleep Vitamin D deficiency Unspecified vitamin D deficiency Secondary glaucoma, indeterminate stage, 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 [facility] [place] [facility]* Diagnosis Establishing care with new doctor, encounter for- Primary Other reasons for seeking consultation 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 Macular degeneration Macular degeneration (senile) of retina, unspecified Legally blind Legal blindness, as defined in [place] Hypertension Unspecified essential hypertension Hypokalemia- Primary Hypopotassemia Hypertension Unspecified essential hypertension Flank pain Abdominal pain, unspecified site Annual physical exam- Primary Routine general medical examination at a health care facility 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, bilateral Essential hypertension Unspecified essential hypertension Mixed hyperlipidemia BPPV (benign paroxysmal positional vertigo), right Encounter for screening mammogram for high-risk patient 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 Legally blind Legal blindness, as defined in [place] Fibromyalgia Mylagia and myositis, unspecified Primary insomnia Persistent disorder of initiating or maintaining sleep Vitamin D deficiency Unspecified vitamin D deficiency Dysuria- Primary Acute lower UTI Urinary tract infection, site not specified [facility] [place] [facility]* Diagnosis Establishing care with new doctor, encounter for- Primary Other reasons for seeking consultation 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 Macular degeneration Macular degeneration (senile) of retina, unspecified Legally blind Legal blindness, as defined in [place] Hypertension Unspecified essential hypertension Hypokalemia- Primary Hypopotassemia Hypertension Unspecified essential hypertension Flank pain Abdominal pain, unspecified site Annual physical exam- Primary Routine general medical examination at a health care facility 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, bilateral Essential hypertension Unspecified essential hypertension Mixed hyperlipidemia BPPV (benign paroxysmal positional vertigo), right Encounter for screening mammogram for high-risk patient 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 Legally blind Legal blindness, as defined in [place] Fibromyalgia Mylagia and myositis, unspecified Primary insomnia Persistent disorder of initiating or maintaining sleep Vitamin D deficiency Unspecified vitamin D deficiency Vitamin D deficiency- Primary Unspecified vitamin D deficiency Dry mouth Disturbance of salivary secretion Vitamin B12 deficiency Other B-complex deficiencies Iron deficiency Iron deficiency anemia, unspecified Other fatigue documented in this encounter [facility] note* Diagnosis Establishing care with new doctor, encounter for- Primary Other reasons for seeking consultation 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 Macular degeneration Macular degeneration (senile) of retina, unspecified Legally blind Legal blindness, as defined in [place] Hypertension Unspecified essential hypertension Hypokalemia- Primary Hypopotassemia Hypertension Unspecified essential hypertension Flank pain Abdominal pain, unspecified site Annual physical exam- Primary Routine general medical examination at a health care facility 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, bilateral Essential hypertension Unspecified essential hypertension Mixed hyperlipidemia BPPV (benign paroxysmal positional vertigo), right Encounter for screening mammogram for high-risk patient 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 Legally blind Legal blindness, as defined in [place] Fibromyalgia Mylagia and myositis, unspecified Primary insomnia Persistent disorder of initiating or maintaining sleep Vitamin D deficiency Unspecified vitamin D deficiency Hypertension, unspecified type- Primary Dry mouth Disturbance of salivary secretion Depression, unspecified depression type Anxiety Anxiety state, unspecified Other fatigue DAYSI (obstructive sleep apnea) Obstructive sleep apnea (adult) (pediatric) [facility]* Diagnosis Establishing care with new doctor, encounter for- Primary Other reasons for seeking consultation 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 Macular degeneration Macular degeneration (senile) of retina, unspecified Legally blind Legal blindness, as defined in [place] Hypertension Unspecified essential hypertension Hypokalemia- Primary Hypopotassemia Hypertension Unspecified essential hypertension Flank pain Abdominal pain, unspecified site Annual physical exam- Primary Routine general medical examination at a health care facility 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, bilateral Essential hypertension Unspecified essential hypertension Mixed hyperlipidemia BPPV (benign paroxysmal positional vertigo), right Encounter for screening mammogram for high-risk patient 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 Legally blind Legal blindness, as defined in [place] Fibromyalgia Mylagia and myositis, unspecified Primary insomnia Persistent disorder of initiating or maintaining sleep Vitamin D deficiency Unspecified vitamin D deficiency Hypokalemia- Primary Hypopotassemia documented in this encounter [facility] note* Diagnosis Establishing care with new doctor, encounter for- Primary Other reasons for seeking consultation 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 Macular degeneration Macular degeneration (senile) of retina, unspecified Legally blind Legal blindness, as defined in [place] Hypertension Unspecified essential hypertension Hypokalemia- Primary Hypopotassemia Hypertension Unspecified essential hypertension Flank pain Abdominal pain, unspecified site Annual physical exam- Primary Routine general medical examination at a health care facility 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, bilateral Essential hypertension Unspecified essential hypertension Mixed hyperlipidemia BPPV (benign paroxysmal positional vertigo), right Encounter for screening mammogram for high-risk patient 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 Legally blind Legal blindness, as defined in [place] Fibromyalgia Mylagia and myositis, unspecified Primary insomnia Persistent disorder of initiating or maintaining sleep Vitamin D deficiency Unspecified vitamin D deficiency Insomnia, unspecified type- Primary documented in this encounter [facility] note* Diagnosis Establishing care with new doctor, encounter for- Primary Other reasons for seeking consultation 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 Macular degeneration Macular degeneration (senile) of retina, unspecified Legally blind Legal blindness, as defined in [place] Hypertension Unspecified essential hypertension Hypokalemia- Primary Hypopotassemia Hypertension Unspecified essential hypertension Flank pain Abdominal pain, unspecified site Annual physical exam- Primary Routine general medical examination at a health care facility 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, bilateral Essential hypertension Unspecified essential hypertension Mixed hyperlipidemia BPPV (benign paroxysmal positional vertigo), right Encounter for screening mammogram for high-risk patient 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 Legally blind Legal blindness, as defined in [place] Fibromyalgia Mylagia and myositis, unspecified Primary insomnia Persistent disorder of initiating or maintaining sleep Vitamin D deficiency Unspecified vitamin D deficiency DAYSI (obstructive sleep apnea)- Primary Obstructive sleep apnea (adult) (pediatric) documented in this encounter [facility] note* Diagnosis Establishing care with new doctor, encounter for- Primary Other reasons for seeking consultation 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 Macular degeneration Macular degeneration (senile) of retina, unspecified Legally blind Legal blindness, as defined in [place] Hypertension Unspecified essential hypertension Hypokalemia- Primary Hypopotassemia Hypertension Unspecified essential hypertension Flank pain Abdominal pain, unspecified site Annual physical exam- Primary Routine general medical examination at a health care facility 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, bilateral Essential hypertension Unspecified essential hypertension Mixed hyperlipidemia BPPV (benign paroxysmal positional vertigo), right Encounter for screening mammogram for high-risk patient 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 Legally blind Legal blindness, as defined in [place] Fibromyalgia Mylagia and myositis, unspecified Primary insomnia Persistent disorder of initiating or maintaining sleep Vitamin D deficiency Unspecified vitamin D deficiency Mixed hyperlipidemia documented in this encounter [facility] note* Diagnosis Establishing care with new doctor, encounter for- Primary Other reasons for seeking consultation 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 Macular degeneration Macular degeneration (senile) of retina, unspecified Legally blind Legal blindness, as defined in [place] Hypertension Unspecified essential hypertension Hypokalemia- Primary Hypopotassemia Hypertension Unspecified essential hypertension Flank pain Abdominal pain, unspecified site Annual physical exam- Primary Routine general medical examination at a health care facility 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, bilateral Essential hypertension Unspecified essential hypertension Mixed hyperlipidemia BPPV (benign paroxysmal positional vertigo), right Encounter for screening mammogram for high-risk patient 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 Legally blind Legal blindness, as defined in [place] Fibromyalgia Mylagia and myositis, unspecified Primary insomnia Persistent disorder of initiating or maintaining sleep Vitamin D deficiency Unspecified vitamin D deficiency Primary hypertension- Primary Unspecified essential hypertension Depression, unspecified depression type Trigger finger, unspecified finger, unspecified laterality Hypokalemia Hypopotassemia Anxiety Anxiety state, unspecified Legally blind Legal blindness, as defined in [facility] Sleep apnea, unspecified type documented in this encounter [facility] note* Diagnosis Establishing care with new doctor, encounter for- Primary Other reasons for seeking consultation 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 Macular degeneration Macular degeneration (senile) of retina, unspecified Legally blind Legal blindness, as defined in [place] Hypertension Unspecified essential hypertension Hypokalemia- Primary Hypopotassemia Hypertension Unspecified essential hypertension Flank pain Abdominal pain, unspecified site Annual physical exam- Primary Routine general medical examination at a health care facility 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, bilateral Essential hypertension Unspecified essential hypertension Mixed hyperlipidemia BPPV (benign paroxysmal positional vertigo), right Encounter for screening mammogram for high-risk patient 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 Legally blind Legal blindness, as defined in [place] Fibromyalgia Mylagia and myositis, unspecified Primary insomnia Persistent disorder of initiating or maintaining sleep Vitamin D deficiency Unspecified vitamin D deficiency Snoring Other dyspnea and respiratory abnormality Excessive daytime sleepiness Non-restorative sleep Other sleep disturbances PLMD (periodic limb movement disorder) Periodic limb movement disorder Primary hypertension Unspecified essential hypertension documented in this encounter [facility] note* Diagnosis Establishing care with new doctor, encounter for- Primary Other reasons for seeking consultation 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 Macular degeneration Macular degeneration (senile) of retina, unspecified Legally blind Legal blindness, as defined in [place] Hypertension Unspecified essential hypertension Hypokalemia- Primary Hypopotassemia Hypertension Unspecified essential hypertension Flank pain Abdominal pain, unspecified site Annual physical exam- Primary Routine general medical examination at a health care facility 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, bilateral Essential hypertension Unspecified essential hypertension Mixed hyperlipidemia BPPV (benign paroxysmal positional vertigo), right Encounter for screening mammogram for high-risk patient 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 Legally blind Legal blindness, as defined in [place] Fibromyalgia Mylagia and myositis, unspecified Primary insomnia Persistent disorder of initiating or maintaining sleep Vitamin D deficiency Unspecified vitamin D deficiency Legally blind- Primary [place] blindness, as defined in [place] 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 documented in this encounter [facility] note* Diagnosis Establishing care with new doctor, encounter for- Primary Other reasons for seeking consultation 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 Macular degeneration Macular degeneration (senile) of retina, unspecified Legally blind Legal blindness, as defined in [place] Hypertension Unspecified essential hypertension Hypokalemia- Primary Hypopotassemia Hypertension Unspecified essential hypertension Flank pain Abdominal pain, unspecified site Annual physical exam- Primary Routine general medical examination at a health care facility 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, bilateral Essential hypertension Unspecified essential hypertension Mixed hyperlipidemia BPPV (benign paroxysmal positional vertigo), right Encounter for screening mammogram for high-risk patient 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 Legally blind Legal blindness, as defined in [place] Fibromyalgia Mylagia and myositis, unspecified Primary insomnia Persistent disorder of initiating or maintaining sleep Vitamin D deficiency Unspecified vitamin D deficiency Need for vaccination- Primary Need for prophylactic vaccination and inoculation against unspecified single disease documented in this encounter [facility] note* Diagnosis Establishing care with new doctor, encounter for- Primary Other reasons for seeking consultation 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 Macular degeneration Macular degeneration (senile) of retina, unspecified Legally blind Legal blindness, as defined in [place] Hypertension Unspecified essential hypertension Hypokalemia- Primary Hypopotassemia Hypertension Unspecified essential hypertension Flank pain Abdominal pain, unspecified site Annual physical exam- Primary Routine general medical examination at a health care facility 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, bilateral Essential hypertension Unspecified essential hypertension Mixed hyperlipidemia BPPV (benign paroxysmal positional vertigo), right Encounter for screening mammogram for high-risk patient 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 Legally blind Legal blindness, as defined in [place] Fibromyalgia Mylagia and myositis, unspecified Primary insomnia Persistent disorder of initiating or maintaining sleep Vitamin D deficiency Unspecified vitamin D deficiency Immunization due- Primary Need for prophylactic vaccination and inoculation against unspecified single disease documented in this encounter [facility] note* Diagnosis Establishing care with new doctor, encounter for- Primary Other reasons for seeking consultation 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 Macular degeneration Macular degeneration (senile) of retina, unspecified Legally blind Legal blindness, as defined in [place] Hypertension Unspecified essential hypertension Hypokalemia- Primary Hypopotassemia Hypertension Unspecified essential hypertension Flank pain Abdominal pain, unspecified site Annual physical exam- Primary Routine general medical examination at a health care facility 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, bilateral Essential hypertension Unspecified essential hypertension Mixed hyperlipidemia BPPV (benign paroxysmal positional vertigo), right Encounter for screening mammogram for high-risk patient 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 Legally blind Legal blindness, as defined in [place] Fibromyalgia Mylagia and myositis, unspecified Primary insomnia Persistent disorder of initiating or maintaining sleep Vitamin D deficiency Unspecified vitamin D deficiency Mixed hyperlipidemia [facility] [place] [facility] Diagnosis Establishing care with new doctor, encounter for- Primary Other reasons for seeking consultation 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 Macular degeneration Macular degeneration (senile) of retina, unspecified Legally blind Legal blindness, as defined in [place] Hypertension Unspecified essential hypertension Hypokalemia- Primary Hypopotassemia Hypertension Unspecified essential hypertension Flank pain Abdominal pain, unspecified site Annual physical exam- Primary Routine general medical examination at a health care facility 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, bilateral Essential hypertension Unspecified essential hypertension Mixed hyperlipidemia BPPV (benign paroxysmal positional vertigo), right Encounter for screening mammogram for high-risk patient 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 Legally blind Legal blindness, as defined in [place] Fibromyalgia Mylagia and myositis, unspecified Primary insomnia Persistent disorder of initiating or maintaining sleep Vitamin D deficiency Unspecified vitamin D deficiency Leaking of conjunctival drainage bleb- Primary Other specified complications [facility] [place] [facility]* Diagnosis Establishing care with new doctor, encounter for- Primary Other reasons for seeking consultation 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 Macular degeneration Macular degeneration (senile) of retina, unspecified Legally blind Legal blindness, as defined in [place] Hypertension Unspecified essential hypertension Hypokalemia- Primary Hypopotassemia Hypertension Unspecified essential hypertension Flank pain Abdominal pain, unspecified site Annual physical exam- Primary Routine general medical examination at a health care facility 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, bilateral Essential hypertension Unspecified essential hypertension Mixed hyperlipidemia BPPV (benign paroxysmal positional vertigo), right Encounter for screening mammogram for high-risk patient 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 Legally blind Legal blindness, as defined in [place] Fibromyalgia Mylagia and myositis, unspecified Primary insomnia Persistent disorder of initiating or maintaining sleep Vitamin D deficiency Unspecified vitamin D deficiency Pre-operative examination- Primary Preoperative examination, unspecified Primary hypertension Unspecified essential hypertension Mixed hyperlipidemia PAD (peripheral artery disease) Peripheral vascular disease, unspecified Benign paroxysmal positional vertigo of right ear DAYSI (obstructive sleep apnea) Obstructive sleep apnea (adult) (pediatric) Anxiety and depression Dysthymic disorder Blindness right eye category 3, blindness left eye category 4 Secondary glaucoma, indeterminate stage, 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 VHD (valvular heart disease) Endocarditis, valve unspecified, unspecified cause * Assessment & Plan Note - Emily Chaparro APRN.CNP - 03/25/2025 9:09 AM EDT Associated Problem(s): PXE (pseudoxanthoma elasticum) Assessment: dx 2009, hx cardiac testing * Assessment & Plan Note - Emily Chaparro APRN.CNP - 03/25/2025 9:05 AM EDT Associated Problem(s): Secondary glaucoma, indeterminate stage, bilateral Assessment: controlled on rx * Assessment & Plan Note - Emily Chaparro APRN.CNP - 03/25/2025 9:05 AM EDT Associated Problem(s): Blindness right eye category 3, blindness left eye category 4 Assessment: hx, 2/2 PXE * Assessment & Plan Note - Emily Chaparro APRN.CNP - 03/25/2025 9:05 AM EDT Associated Problem(s): Anxiety and depression Assessment: stable on rx per pt * Assessment & Plan Note - Emily Chaparro APRN.CNP - 03/25/2025 9:04 AM EDT Associated Problem(s): DAYSI (obstructive sleep apnea) Assessment: non-compliant with CPAP * Assessment & Plan Note - Emily Chaparro APRN.CNP - 03/25/2025 9:04 AM EDT Associated Problem(s): VHD (valvular heart disease) Assessment: Echo 2021 with no notation of aortic sclerosis as noted in her chart, also only other VHD is trace PVR and TVR on last echo AORTIC VALVE The aortic valve cusps are structurally normal. There is no aortic valve regurgitation. Tricuspid aortic valve. The peak gradient is 10 mmHg (peak velocity = 154.4 cm/s). * Assessment & Plan Note - Emily Chaparro APRN.CNP - 03/25/2025 9:03 AM EDT Associated Problem(s): BPPV (benign paroxysmal positional vertigo) Assessment: rx as needed * Assessment & Plan Note - Emily Chaparro APRN.CNP - 03/25/2025 9:03 AM EDT Associated Problem(s): PAD (peripheral artery disease) Assessment: 20-39% bilateral carotid artery stenosis per last US 06/2024 * Assessment & Plan Note - Emily Chaparro APRN.CNP - 03/25/2025 9:02 AM EDT Associated Problem(s): Mixed hyperlipidemia Assessment: c/w statin * Assessment & Plan Note - Emily Chaparro APRN.CNP - 03/25/2025 9:02 AM EDT Associated Problem(s): Hypertension Assessment: controlled on rx Last 14 BP Last 14 Encounter BP Readings: Date: BP: 03/24/2025 108/66 12/29/2024 112/66 11/03/2024 114/78 10/31/2024 141/88 10/12/2024 106/63 10/07/2024 124/62 09/29/2024 138/88 09/24/2024 122/81 09/15/2024 118/66 07/08/2024 128/82 04/11/2024 122/70 03/31/2024 128/70 12/24/2023 126/82 11/18/2023 124/72 [facility] Establishing care with new doctor, encounter for- Primary Other reasons for seeking consultation 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 Macular degeneration Macular degeneration (senile) of retina, unspecified Legally blind [place] blindness, as defined in [place] Hypertension Unspecified essential hypertension Hypokalemia- Primary Hypopotassemia Hypertension Unspecified essential hypertension Flank pain Abdominal pain, unspecified site Annual physical exam- Primary Routine general medical examination at a health care facility 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, bilateral Essential hypertension Unspecified essential hypertension Mixed hyperlipidemia BPPV (benign paroxysmal positional vertigo), right Encounter for screening mammogram for high-risk patient 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 Legally blind Legal blindness, as defined in [place] Fibromyalgia Mylagia and myositis, unspecified Primary insomnia Persistent disorder of initiating or maintaining sleep Vitamin D deficiency Unspecified vitamin D deficiency Pre-operative examination- Primary Preoperative examination, unspecified Primary hypertension Unspecified essential hypertension Mixed hyperlipidemia PAD (peripheral artery disease) Peripheral vascular disease, unspecified Benign paroxysmal positional vertigo of right ear DAYSI (obstructive sleep apnea) Obstructive sleep apnea (adult) (pediatric) Anxiety and depression Dysthymic disorder Blindness right eye category 3, blindness left eye category 4 Secondary glaucoma, indeterminate stage, 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 VHD (valvular heart disease) Endocarditis, valve unspecified, unspecified cause Status post glaucoma surgery- Primary [facility] Diagnosis Establishing care with new doctor, encounter for- Primary Other reasons for seeking consultation 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 Macular degeneration Macular degeneration (senile) of retina, unspecified Legally blind [place] blindness, as defined in [place] Hypertension Unspecified essential hypertension Hypokalemia- Primary Hypopotassemia Hypertension Unspecified essential hypertension Flank pain Abdominal pain, unspecified site Annual physical exam- Primary Routine general medical examination at a health care facility 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, bilateral Essential hypertension Unspecified essential hypertension Mixed hyperlipidemia BPPV (benign paroxysmal positional vertigo), right Encounter for screening mammogram for high-risk patient 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 Legally blind Legal blindness, as defined in [place] Fibromyalgia Mylagia and myositis, unspecified Primary insomnia Persistent disorder of initiating or maintaining sleep Vitamin D deficiency Unspecified vitamin D deficiency Pre-operative examination- Primary Preoperative examination, unspecified Primary hypertension Unspecified essential hypertension Mixed hyperlipidemia PAD (peripheral artery disease) Peripheral vascular disease, unspecified Benign paroxysmal positional vertigo of right ear DAYSI (obstructive sleep apnea) Obstructive sleep apnea (adult) (pediatric) Anxiety and depression Dysthymic disorder Blindness right eye category 3, blindness left eye category 4 Secondary glaucoma, indeterminate stage, 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 VHD (valvular heart disease) Endocarditis, valve unspecified, unspecified cause Insomnia, unspecified type documented in this encounter [facility] note* Diagnosis Establishing care with new doctor, encounter for- Primary Other reasons for seeking consultation 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 Macular degeneration Macular degeneration (senile) of retina, unspecified Legally blind [place] blindness, as defined in [place] Hypertension Unspecified essential hypertension Hypokalemia- Primary Hypopotassemia Hypertension Unspecified essential hypertension Flank pain Abdominal pain, unspecified site Annual physical exam- Primary Routine general medical examination at a health care facility 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, bilateral Essential hypertension Unspecified essential hypertension Mixed hyperlipidemia BPPV (benign paroxysmal positional vertigo), right Encounter for screening mammogram for high-risk patient 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 Legally blind Legal blindness, as defined in [place] Fibromyalgia Mylagia and myositis, unspecified Primary insomnia Persistent disorder of initiating or maintaining sleep Vitamin D deficiency Unspecified vitamin D deficiency Pre-operative examination- Primary Preoperative examination, unspecified Primary hypertension Unspecified essential hypertension Mixed hyperlipidemia PAD (peripheral artery disease) Peripheral vascular disease, unspecified Benign paroxysmal positional vertigo of right ear DAYSI (obstructive sleep apnea) Obstructive sleep apnea (adult) (pediatric) Anxiety and depression Dysthymic disorder Blindness right eye category 3, blindness left eye category 4 Secondary glaucoma, indeterminate stage, 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 VHD (valvular heart disease) Endocarditis, valve unspecified, unspecified cause Follow-up examination after eye surgery- Primary Follow-up examination, following other surgery documented in this encounter [facility] note* Diagnosis Establishing care with new doctor, encounter for- Primary Other reasons for seeking consultation 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 Macular degeneration Macular degeneration (senile) of retina, unspecified Legally blind [place] blindness, as defined in [place] Hypertension Unspecified essential hypertension Hypokalemia- Primary Hypopotassemia Hypertension Unspecified essential hypertension Flank pain Abdominal pain, unspecified site Annual physical exam- Primary Routine general medical examination at a health care facility 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, bilateral Essential hypertension Unspecified essential hypertension Mixed hyperlipidemia BPPV (benign paroxysmal positional vertigo), right Encounter for screening mammogram for high-risk patient 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 Legally blind Legal blindness, as defined in [place] Fibromyalgia Mylagia and myositis, unspecified Primary insomnia Persistent disorder of initiating or maintaining sleep Vitamin D deficiency Unspecified vitamin D deficiency Pre-operative examination- Primary Preoperative examination, unspecified Primary hypertension Unspecified essential hypertension Mixed hyperlipidemia PAD (peripheral artery disease) Peripheral vascular disease, unspecified Benign paroxysmal positional vertigo of right ear DAYSI (obstructive sleep apnea) Obstructive sleep apnea (adult) (pediatric) Anxiety and depression Dysthymic disorder Blindness right eye category 3, blindness left eye category 4 Secondary glaucoma, indeterminate stage, 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 VHD (valvular heart disease) Endocarditis, valve unspecified, unspecified cause Viral URI with cough- Primary Acute upper respiratory infections of unspecified site [facility] Establishing care with new doctor, encounter for- Primary Other reasons for seeking consultation 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 Macular degeneration Macular degeneration (senile) of retina, unspecified Legally blind [place] blindness, as defined in [place] Hypertension Unspecified essential hypertension Hypokalemia- Primary Hypopotassemia Hypertension Unspecified essential hypertension Flank pain Abdominal pain, unspecified site Annual physical exam- Primary Routine general medical examination at a health care facility 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, bilateral Essential hypertension Unspecified essential hypertension Mixed hyperlipidemia BPPV (benign paroxysmal positional vertigo), right Encounter for screening mammogram for high-risk patient 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 Legally blind Legal blindness, as defined in [place] Fibromyalgia Mylagia and myositis, unspecified Primary insomnia Persistent disorder of initiating or maintaining sleep Vitamin D deficiency Unspecified vitamin D deficiency Pre-operative examination- Primary Preoperative examination, unspecified Primary hypertension Unspecified essential hypertension Mixed hyperlipidemia PAD (peripheral artery disease) Peripheral vascular disease, unspecified Benign paroxysmal positional vertigo of right ear DAYSI (obstructive sleep apnea) Obstructive sleep apnea (adult) (pediatric) Anxiety and depression Dysthymic disorder Blindness right eye category 3, blindness left eye category 4 Secondary glaucoma, indeterminate stage, 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 VHD (valvular heart disease) Endocarditis, valve unspecified, unspecified cause Intertrigo- Primary Other specified erythematous condition Status post glaucoma surgery Primary hypertension Unspecified essential hypertension DAYSI (obstructive sleep apnea) Obstructive sleep apnea (adult) (pediatric) 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 Poison boo dermatitis Contact dermatitis and other eczema due to plants (except food) documented in this encounter [facility] note* Diagnosis Establishing care with new doctor, encounter for- Primary Other reasons for seeking consultation 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 Macular degeneration Macular degeneration (senile) of retina, unspecified Legally blind [place] blindness, as defined in [place] Hypertension Unspecified essential hypertension Hypokalemia- Primary Hypopotassemia Hypertension Unspecified essential hypertension Flank pain Abdominal pain, unspecified site Annual physical exam- Primary Routine general medical examination at a health care facility 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, bilateral Essential hypertension Unspecified essential hypertension Mixed hyperlipidemia BPPV (benign paroxysmal positional vertigo), right Encounter for screening mammogram for high-risk patient 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 Legally blind Legal blindness, as defined in [place] Fibromyalgia Mylagia and myositis, unspecified Primary insomnia Persistent disorder of initiating or maintaining sleep Vitamin D deficiency Unspecified vitamin D deficiency Pre-operative examination- Primary Preoperative examination, unspecified Primary hypertension Unspecified essential hypertension Mixed hyperlipidemia PAD (peripheral artery disease) Peripheral vascular disease, unspecified Benign paroxysmal positional vertigo of right ear DAYSI (obstructive sleep apnea) Obstructive sleep apnea (adult) (pediatric) Anxiety and depression Dysthymic disorder Blindness right eye category 3, blindness left eye category 4 Secondary glaucoma, indeterminate stage, 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 VHD (valvular heart disease) Endocarditis, valve unspecified, unspecified cause Follow-up examination after eye surgery- Primary Follow-up examination, following other surgery Secondary glaucoma, indeterminate stage, bilateral [facility] Diagnosis Establishing care with new doctor, encounter for- Primary Other reasons for seeking consultation 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 Macular degeneration Macular degeneration (senile) of retina, unspecified Legally blind Legal blindness, as defined in [place] Hypertension Unspecified essential hypertension Hypokalemia- Primary Hypopotassemia Hypertension Unspecified essential hypertension Flank pain Abdominal pain, unspecified site Annual physical exam- Primary Routine general medical examination at a health care facility 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, bilateral Essential hypertension Unspecified essential hypertension Mixed hyperlipidemia BPPV (benign paroxysmal positional vertigo), right Encounter for screening mammogram for high-risk patient 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 Legally blind Legal blindness, as defined in [place] Fibromyalgia Mylagia and myositis, unspecified Primary insomnia Persistent disorder of initiating or maintaining sleep Vitamin D deficiency Unspecified vitamin D deficiency Pre-operative examination- Primary Preoperative examination, unspecified Primary hypertension Unspecified essential hypertension Mixed hyperlipidemia PAD (peripheral artery disease) Peripheral vascular disease, unspecified Benign paroxysmal positional vertigo of right ear DAYSI (obstructive sleep apnea) Obstructive sleep apnea (adult) (pediatric) Anxiety and depression Dysthymic disorder Blindness right eye category 3, blindness left eye category 4 Secondary glaucoma, indeterminate stage, 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 VHD (valvular heart disease) Endocarditis, valve unspecified, unspecified cause Poison boo- Primary Contact dermatitis and other eczema due to plants (except food) Intertrigo Other specified erythematous condition documented in this encounter [facility] for referral (narrative)* Diagnostic Procedure Only (Routine) - Pending Review Specialty Diagnoses / Procedures Referred By Shiraz jonhson Referred To Contact [facility] Diagnoses Encounter for screening mammogram for breast cancer Procedures GENOVEVA SCREENING SCREENING MAMMOGRAPHY BI 2-VIEW BREAST INC Destiney Proctor APRN.CNP [address] [place] [address] [facility] [address] [place] [address] Referral ID Status Reason Start Date Expiration Date Visits Requested Visits Authorized [id number] Pending Review Auto-Generat ed Referral 12/04/2021 01/03/2023 1 1 [facility] for referral (narrative)* Outpatient Procedure (Routine) - Pending Review Specialty Diagnoses / Procedures Referred By Shiraz johnson Referred To Contact [facility] Diagnoses Pain in both hands Procedures EMG(NEURO/NI) NERVE CONDUCTION STUDIES 9-10 STUDIES Massimo Roberts MD [address] [place] [address] [facility] [place] [address] [place] [address] Referral ID Status Reason Start Date Expiration Date Visits Requested Visits Authorized [id number] Pending Review Auto-Generat ed Referral 05/03/2022 05/03/2023 1 1 [facility] for referral (narrative)* Outpatient Procedure (Routine) - Pending Review Specialty Diagnoses / Procedures Referred By Shiraz johnson Referred To Contact [facility] [place] Diagnoses PXE (pseudoxanthoma elasticum) Procedures ECHO ECHO TTHRC R-T 2D W/WOM-MODE COMPL SPEC&COLR D Charlene Grossman MD [address] [place] [address] [facility] [place] [address] [place] [address] Referral ID Status Reason Start Date Expiration Date Visits Requested Visits Authorized [id number] Pending Review Auto-Generat ed Referral 06/20/2023 1 1 [facility] for referral (narrative)* Diagnostic Procedure Only (Routine) - Pending Review Specialty Diagnoses / Procedures Referred By Shiraz johnson Referred To Contact BR IMAGING Diagnoses Abnormal mammogram Procedures GENOVEVA DIAGNOSTIC RT DIAGNOSTIC MAMMOGRAPHY COMPUTER-AIDED DETCJ Destiney Cortez APRN.CNP [address] [place] [address] [facility] [address] [place] [address] Referral ID Status Reason Start Date Expiration Date Visits Requested Visits Authorized [id number] Pending Review Auto-Generat ed Referral 09/28/2022 10/28/2023 1 1 * Diagnostic Procedure Only (Routine) - Pending Review Specialty Diagnoses / Procedures Referred By Contac t Referred To Contact BR IMAGING Diagnoses Abnormal mammogram Procedures US BREAST LTD RT US BREAST UNI REAL TIME WITH IMAGE LIMITED Destiney Mckeon APRN.CNP [address] [place] [address] [facility] [address] [place] [address] Referral ID Status Reason Start Date Expiration Date Visits Requested Visits Authorized [id number] Pending Review Auto-Generat ed Referral 09/28/2022 10/28/2023 1 1 [facility] for referral (narrative)* Diagnostic Procedure Only (Routine) - Closed Specialty Diagnoses / Procedures Referred By Contac t Referred To Contact XR IMAGING Diagnoses Pain in both hands Procedures XR HAND GENERAL 3V PA/LAT/OBL BILATERAL RADEX HAND MINIMUM 3 VIEWS Massimo Roberts MD [address] [place] [address] Xr Imaging Referral ID Status Reason Start Date Expiration Date V isits Requested Visits Authorized [id number] Closed Auto-Generate d Referral 10/01/2022 10/31/2023 1 1 [facility] for referral (narrative)* Outpatient Procedure (Routine) - Authorized Specialty Diagnoses / Procedures [facility] To [facility] Diagnoses Change in bowel habits Procedures COLONOSCOPY DIAGNOSTIC COLONOSCOPY FLX DX W/COLLJ SPEC WHEN PFRMD Cande Pozo PA-C [address] [place] [address] [facility] [place] [address] [place] [address] Referral ID Status Reason Start Date Expiration Date Visits Requested Visits Authorized [id number] Authorized Auto-Generat ed Referral 04/30/2023 04/30/2024 1 1 * Outpatient Procedure (Routine) - Authorized Specialty Diagnoses / Procedures [facility] Referred To [facility] Diagnoses Gastroesophageal reflux disease, unspecified whether esophagitis present Procedures EGD DIAGNOSTIC ESOPHAGOGASTRODUODENOSC OPY TRANSORAL DIAGNOSTIC Cande Pozo PA-C [address] [facility] [place] [address] [facility] [place] [address] [place] [address] Referral ID Status Reason Start Date Expiration Date Visits Requested Visits Authorized [id number] Authorized Auto-Generat ed Referral 04/30/2023 04/30/2024 1 1 [facility] for referral (narrative)* Outpatient Procedure (Routine) - Pending Review Specialty Diagnoses / Procedures [facility] Referred To Contact [facility] Diagnoses Numbness and tingling in right hand Procedures EMG(NEURO/NI) NERVE CONDUCTION STUDIES 9-10 STUDIES Massimo Roberts MD [address] [place] [address] [address] Referral ID Status Reason Start Date Expiration Date Visits Requested Visits Authorized [id number] Pending Review Auto-Generat ed Referral 04/25/2023 04/25/2024 1 1 [facility] for referral (narrative)* Diagnostic Procedure Only (Routine) - Closed Specialty Diagnoses / Procedures [facility] Referred To Contact [facility] Diagnoses Abnormal mammogram Procedures US BREAST LTD RT US BREAST UNI REAL TIME WITH IMAGE LIMITED Destiney Mckeon APRN.CNP [address] [place] [address] [facility] [address] [place] [address] Referral ID Status Reason Start Date Expiration Date V isits Requested Visits Authorized [id number] Closed Auto-Generate d Referral 09/28/2022 10/28/2023 1 1 [facility] for referral (narrative)* Diagnostic Procedure Only (Routine) - Closed Specialty Diagnoses / Procedures Referred By Contac t Referred To Contact XR IMAGING Diagnoses Pain in both hands Procedures XR HAND GENERAL 3V PA/LAT/OBL BILATERAL RADEX HAND MINIMUM 3 VIEWS Massimo Roberts MD [address] [place] [address] [place] [address] Referral ID Status Reason Start Date Expiration Date V isits Requested Visits Authorized [id number] Closed Auto-Generate d Referral 10/01/2022 10/31/2023 1 1 [facility] for referral (narrative)* Diagnostic Procedure Only (Routine) - Closed Specialty Diagnoses / Procedures Referred By Contac t Referred To Contact BR IMAGING Diagnoses Encounter for screening mammogram for breast cancer Procedures GENOVEVA SCREENING SCREENING MAMMOGRAPHY BI 2-VIEW BREAST INC [facility] Destiney Mckeon APRN.HYDROGENATION STILL OPERATOR [address] [place] [address] Br Imaging [address] [place] [address] Referral ID Status Reason Start Date Expiration Date V isits Requested Visits Authorized [id number] Closed Auto-Generate d Referral 09/05/2022 09/01/2023 1 1 [facility] for referral (narrative)* Diagnostic Procedure Only (Routine) - Pending Review Specialty Diagnoses / Procedures Referred By Contac t Referred To Contact BR IMAGING Diagnoses Encounter for gynecological examination (general) (routine) without abnormal findings Encounter for screening mammogram for breast cancer Procedures GENOVEVA SCREENING SCREENING MAMMOGRAPHY BI 2-VIEW BREAST INC CAD Destiney Mckeon APRN.CNP [address] [place] [address] [facility] [address] [place] [address] Referral ID Status Reason Start Date Expiration Date Visits Requested Visits Authorized [id number] Pending Review Auto-Generat ed Referral 12/24/2023 01/22/2025 1 1 [facility] for referral (narrative)* Outpatient Procedure (Routine) - Closed Specialty Diagnoses / Procedures Referred By Shiraz t Referred To Contact [facility] Diagnoses Change in bowel habits Procedures COLONOSCOPY DIAGNOSTIC COLONOSCOPY FLX DX W/COLLJ SPEC WHEN PFRMD Cande Pozo PA-C [address] [place] [address] [facility] [address] [address] Referral ID Status Reason Start Date Expiration Date V isits Requested Visits Authorized [id number] Closed Auto-Generate d Referral 04/30/2023 04/30/2024 1 1 * Outpatient Procedure (Routine) - Closed Specialty Diagnoses / Procedures Referred By Shiraz t Referred To Contact [facility] Diagnoses Gastroesophageal reflux disease, unspecified whether esophagitis present Procedures EGD DIAGNOSTIC ESOPHAGOGASTRODUODENOSC OPY TRANSORAL DIAGNOSTIC Cande Pozo PA-C [address] [place] [address] [address] Referral ID Status Reason Start Date Expiration Date V isits Requested Visits Authorized [id number] Closed Auto-Generate d Referral 04/30/2023 04/30/2024 1 1 [facility] for referral (narrative)* Diagnostic Procedure Only (Routine) - Authorized Specialty Diagnoses / Procedures Referred By Shiraz t Referred To Contact BR IMAGING Diagnoses Encounter for screening mammogram for malignant neoplasm of breast Procedures GENOVEVA SCREENING W LILLY SCREENING DIGITAL BREAST TOMOSYNTHESIS BI SCREENING MAMMOGRAPHY BI 2-VIEW BREAST INC Ifeoma Bill MD [address] [place] [address] [facility] [address] [place] [address] Referral ID Status Reason Start Date Expiration Date Visits Requested Visits Authorized [id number] Authorized Auto-Generat ed Referral 07/12/2025 1 1 [facility] for referral (narrative)* Outpatient Procedure (Routine) - Closed Specialty Diagnoses / Procedures Referred By Shiraz johnson Referred To Contact [facility] [place] Diagnoses PXE (pseudoxanthoma elasticum) Procedures US CAROTID ARTERIES MARYAN VAS LAB DUPLEX SCAN EXTRACRANIAL ART COMPL BI STUDY Ifeoma Davis MD [address] [place] [address] [facility] [place] [address] [place] [address] Referral ID Status Reason Start Date Expiration Date V isits Requested Visits Authorized [id number] Closed Auto-Generate d Referral 05/14/2024 05/14/2025 1 1 [facility] for referral (narrative)No reason for referral information availableWAvita [facility] Work Phone: Reason for visit Narrative* Diagnostic Procedure Only (Routine) - Closed Specialty Diagnoses / Procedures Referred By Shiraz johnson Referred To Contact XR IMAGING Diagnoses Pain Procedures XR HAND GENERAL 3V PA/LAT/OBL BILATERAL RADEX HAND MINIMUM 3 VIEWS Massimo Roberts MD [address] [place] [address] [place] [address] Referral ID Status Reason Start Date Expiration Date V isits Requested Visits Authorized [id number] Closed Auto-Generate d Referral 04/20/2022 09/01/2023 1 1 [facility] for visit Narrative* Diagnostic Procedure Only (Routine) - Closed Specialty Diagnoses / Procedures Referred By Shiraz johnson Referred To Contact BR IMAG[facility] Diagnoses Abnormal mammogram Procedures GENOVEVA DIAGNOSTIC RT DIAGNOSTIC MAMMOGRAPHY COMPUTER-AIDED DETCJ Destiney Cortez APRN.HYDROGENATION STILL OPERATOR [address] [place] [address] [facility] Imaging [address] [place] [address] Referral ID Status Reason Start Date Expiration Date V isits Requested Visits Authorized [id number] Closed Auto-Generate d Referral 09/28/2022 10/28/2023 1 1 [facility] for visit Narrative* Diagnostic Procedure Only (Routine) - Closed Specialty Diagnoses / Procedures Referred By Contac t Referred To Contact BR IMAG[facility] Diagnoses Encounter for screening mammogram for breast cancer Procedures GENOVEVA SCREENING SCREENING MAMMOGRAPHY BI 2-VIEW BREAST INC CAD Destiney Mckeon, MED PEDS.HYDROGENATION STILL OPERATOR [address] [place] [address] [facility] [address] [place] [address] Referral ID Status Reason Start Date Expiration Date V isits Requested Visits Authorized [id number] Closed Auto-Generate d Referral 12/10/2022 01/09/2024 1 1 [facility] for visit Narrative* Outpatient Procedure (Routine) - Closed Specialty Diagnoses / Procedures Referred By Contac t Referred To Contact [facility] Diagnoses Change in bowel habits Procedures COLONOSCOPY DIAGNOSTIC COLONOSCOPY FLX DX W/COLLJ SPEC WHEN PFRMD Cande Pozo PA-C [address] [place] [address] [facility] [place] [address] [place] [address] Referral ID Status Reason Start Date Expiration Date V isits Requested Visits Authorized [id number] Closed Auto-Generate d Referral 04/30/2023 04/30/2024 1 1 [facility] for visit Narrative* Diagnostic Procedure Only (Routine) - Closed Specialty Diagnoses / Procedures Referred By Contac t Referred To Contact BR IMAG[facility] Diagnoses Encounter for gynecological examination (general) (routine) without abnormal findings Encounter for screening mammogram for breast cancer Procedures GENOVEVA SCREENING SCREENING MAMMOGRAPHY BI 2-VIEW BREAST INC CAD Destiney Mckeon, MED PEDS.HYDROGENATION STILL OPERATOR [address] [place] [address] Phone: tel: fax: [facility] [address] [place] [address] Referral ID Status Reason Start Date Expiration Date V isits Requested Visits Authorized [id number] Closed Auto-Generate d Referral 12/24/2023 01/22/2025 1 1 [facility] Advance Directives No Advanced Directives Records FoundDocuments on File Type Date 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 Advance Directive(s) 10/26/2021 12:12 PM Advance Directive(s) 09/14/2021 11:54 AM Advance Directive(s) 06/22/2019 12:39 PM Advance Directive(s) 02/03/2018 1:55 PM Advance Directive(s) 01/30/2018 9:51 AM Documents on File Type Date Recorded 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 Advance Directive(s) 10/26/2021 12:12 PM Advance Directive(s) 09/14/2021 11:54 AM Advance Directive(s) 06/22/2019 12:39 PM Advance Directive(s) 02/03/2018 1:55 PM Advance Directive(s) 01/30/2018 9:51 AM Advance Directive Response Recorded Date/ Time Advance Directives Yes August 3:53pm Living Will Yes November 20, 2021 5:09pm Power of Mountain Bike Guide Yes November 20 5:09pm Advance Directive Response Recorded Date/ Time Advance Directives Yes November 24 3:06pm Reason for Referral Specialty Diagnoses / Procedures Referred By Shiraz johnson Referred To Contact MR IMAGING Diagnoses 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) Vertigo Memory deficits New daily persistent headache Procedures MRI BRAIN WO/W IVCON MRI BRAIN BRAIN STEM W/O W/CONTRAST MATERIAL Ifeoma Davis MD [address] [place] [address] Mr Imaging Referral ID Status Reason Start Date Expiration Date Visits Requested Visits Authorized [id number] Authorized Auto-Generat ed Referral 12/25/2021 01/24/2023 1 1 Specialty Diagnoses / Procedures Referred By Shiraz johsnon Referred To Contact [facility] Diagnoses Blindness right eye category 3, blindness left eye category 4 Procedures CONSULT TO HORSE AND WAGON DRIVER OCCUPATIONAL THERAPY EVAL HIGH COMPLEX 60 MINS Wolf Mason, OD [address] [facility] [address] [place] [address] [facility] [address] [address] Referral ID Status Reason Start Date Expiration Date Visits Requested Visits Authorized [id number] Pending Review Auto-Generat ed Referral 2 08/16/2023 1 1 Specialty Diagnoses / Procedures Referred By Contac t Referred To Contact [facility] Diagnoses Difficulty with household tasks Impaired mobility and personal care Personal care impairment Complaints of difficulty with reading Blindness right eye category 3, blindness left eye category 4 Procedures OT REHAB FOLLOW UP ORDER THERAPEUT ACTVITY DIRECT PT CONTACT EACH 15 MIN [place] [address] [place] [address] [address] Referral ID Status Reason Start Date Expiration Date Visits Requested Visits Authorized [id number] Pending Review PCP Requested Referral Auto-Generate d Referral 09/19/2022 12/18/2022 1 1 Specialty Diagnoses / Procedures Referred By Contac t Referred To Contact Gastroenterology Diagnoses Gastroesophageal reflux disease with esophagitis, unspecified whether hemorrhage Procedures CONSULT TO GASTROENTEROLOGY OFFICE/OUTPATIENT [facility] 60-74 MINUTES Ifeoma Davis MD [address] [place] [address] Referral ID Status Reason Start Date Expiration Date Visits Requested Visits Authorized [id number] Pending Review PCP Requested Referral 10/16/2022 10/16/2023 1 1 Specialty Diagnoses / Procedures Referred By Contac t Referred To Contact [facility] Diagnoses Gastroesophageal reflux disease with esophagitis, unspecified whether hemorrhage Procedures ECG COMPLETE ECG ROUTINE ECG W/LEAST 12 LDS W/I&R Ifeoma Davis MD [address] [place] [address] [facility] [address] [address] Referral ID Status Reason Start Date Expiration Date Visits Requested Visits Authorized [id number] Pending Review Auto-Generat ed Referral 10/16/2022 10/16/2023 1 1 Specialty Diagnoses / Procedures Referred By Contac t Referred To Contact [facility] Diagnoses Trigger ring finger of right hand Trigger middle finger of left hand Procedures CONSULT TO HORSE AND WAGON DRIVER OCCUPATIONAL THERAPY [facility] COMPLEX 60 MINS Taina Fan PA-C [address] [place] [address] [facility] [place] [address] [place] [address] Referral ID Status Reason Start Date Expiration Date Visits Requested Visits Authorized [id number] Pending Review Auto-Generat ed Referral 11/19/2022 11/19/2023 1 1 Specialty Diagnoses / Procedures Referred By Contac t Referred To Contact Destiney Mckeon APRN.HYDROGENATION STILL OPERATOR [address] [place] [address] Referral ID Status Reason Start Date Expiration Date Visits Re quested Visits Authorized [id number] Closed 1 1 Specialty Diagnoses / Procedures Referred By Contac t Referred To Contact Diagnoses 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 injury Calli Duvall, MED PEDS.HYDROGENATION STILL OPERATOR [address] [place] [address] Referral ID Status Reason Start Date Expiration Date Visits Re quested Visits Authorized [id number] Closed 1 1 Specialty Diagnoses / Procedures Referred By Contac t Referred To Contact Diagnoses DAYSI (obstructive sleep apnea) 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) Procedures CONSULT TO SLEEP MEDICINE - ADULT OFFICE/OUTPATIENT [facility] 60 MINUTES Ifeoma Davis MD [address] [place] [address] Referral ID Status Reason Start Date Expiration Date Visits Requested Visits Authorized [id number] Authorized PCP Requested Referral 07/28/2025 1 1 Specialty Diagnoses / Procedures Referred By Contac t Referred To Contact Diagnoses Vasomotor symptoms due to menopause Destiney Mckeon, MURTAZA.HYDROGENATION STILL OPERATOR [address] [place] [address] Referral ID Status Reason Start Date Expiration Date V isits Requested Visits Authorized [id number] Authorized 06/16/2024 09/15/2025 1 1 Medications Administered Section Active Administered Medications - up to 3 most recent administrations Medication Order MAR Action Action Date Dose Rate Site fluorescein-benoxinate 0.25-0.4 % 1 Drop (FLURESS) 1 Drop, BOTH EYES, DIRECTED, Starting on Sat02/27/22 at 1500, Until Sat02/28/22 at 0259, Administer for applanation tonometry. In the event of a Fluress shortage, administer [place]-Fluor 1 drop into both eyes as directed for applanation tonometry Given 02/27/2022 3:00 PM EDT 1 Drop proparacaine 0.5 % 1 Drop (ALCAINE) 1 Drop, BOTH EYES, DIRECTED, Starting on Sat02/27/22 at 1500, Until Sat02/28/22 at 0259, Administer for pneumo tonometry, tonopen tonometry, or pachymetry. In the event of a proparacaine shortage, administer tetracaine 0.5% ophthalmic drops 1 drop in both eyes as directed for pneumo tonometry, tonopen tonometry, or pachymetry Given 02/27/2022 3:00 PM EDT 1 Drop Inactive Administered Medications - up to 3 most recent administrations Medication Order MAR Action Action Date Dose Rate Site balanced salts (BSS) X (OR/PROCEDURE) PRN, Starting on Sat06/25/22 at 1019, Until Sat06/26/22 at 0303, Intraprocedure Given 06/25/2022 10:19 AM EDT 500 mL carbachol 0.01 % injection (CARBASTAT) X (OR/PROCEDURE) PRN, Starting on Sat06/25/22 at 1030, Until Sat06/26/22 at 0303, Intraprocedure Given 06/25/2022 10:40 AM EDT 1 mL Given 06/25/2022 10:38 AM EDT 0.5 mL Given 06/25/2022 10:33 AM EDT 0.5 mL cyclopentolate 1%-tropicamide 1%-PHENYLephrine 2.5% ophthalmic drops 1 Drop, RIGHT EYE, EVERY 3 MINUTES, 3 doses, First dose on Sat06/25/22 at 0930, Last dose on Sat06/25/22 at 0940, For Topical Ophthalmic Use Only, Preprocedure Given 06/25/2022 9:40 AM EDT 1 Drop Given 06/25/2022 9:37 AM EDT 1 Drop Given 06/25/2022 9:34 AM EDT 1 Drop lidocaine (PF) 3.5 % (AKTEN) X (OR/PROCEDURE) PRN, Starting on Sat06/25/22 at 1003, Until Sat06/26/22 at 0303, Intraprocedure Given 06/25/2022 10:03 AM EDT 1 Drop lidocaine 1%-PHENYLephrine 1.5% intraocular injection X (OR/PROCEDURE) PRN, Starting on Sat06/25/22 at 1013, Until Sat06/26/22 at 0303, Intraprocedure Given 06/25/2022 10:13 AM EDT 0.2 mL lidocaine HCl (PF) 20 mg/mL (2 %) injection X (OR/PROCEDURE) PRN, Starting on Sat06/25/22 at 1004, Until Sat06/26/22 at 0303, Intraprocedure Given 06/25/2022 10:04 AM EDT 4.5 mL Eye, Right moxifloxacin intraocular injection 5 mg/mL (PF) X (OR/PROCEDURE) PRN, Starting on Sat06/25/22 at 1125, Until Sat06/26/22 at 0303, Intraprocedure Given 06/25/2022 11:25 AM EDT 0.1 mL enlbutvj-omzkqsvju-krjhyvbxv sone 3.5 mg/g-10,000 unit/g-0.1 % (POLYDEX) X (OR/PROCEDURE) PRN, Starting on Sat06/25/22 at 1128, Until Sat06/26/22 at 0303, Intraprocedure Given 06/25/2022 11:28 AM EDT 1 application Povidone-Iodine 5 % ophth soln (BETADINE) X (OR/PROCEDURE) PRN, Starting on Sat06/25/22 at 1006, Until Sat06/26/22 at 0303, Intraprocedure Given 06/25/2022 10:06 AM EDT 30 mL sod hyaluronate-sod chondroitin-sod hyaluronate intraocular kit (DUOVISC) X (OR/PROCEDURE) PRN, Starting on Sat06/25/22 at 1013, Until Sat06/26/22 at 0303, Intraprocedure Given 06/25/2022 10:13 AM EDT 1 Each sodium chloride 0.9 % (flush) 2-10 mL (BD POSIFLUSH) 2-10 mL, INTRAVENOUS, EVERY 12 HOURS, First dose on Sat06/25/22 at 0930, Until Discontinued, Preprocedure Given 06/25/2022 9:34 AM EDT 3 mL sodium hyaluronate 10 mg/mL injection (PROVISC,HEALON PRO) X (OR/PROCEDURE) PRN, Starting on Sat06/25/22 at 1045, Until Sat06/26/22 at 0303, Intraprocedure Given 06/25/2022 10:45 AM EDT 0.85 mL tetracaine 0.5 % (OPTICAINE) X (OR/PROCEDURE) PRN, Starting on Sat06/25/22 at 1002, Until Sat06/26/22 at 0303, Intraprocedure Given 06/25/2022 10:46 AM EDT 4 Drops Given 06/25/2022 10:02 AM EDT 2 Drops Summary Purpose Family History No Family History Records Found Relationship Condition Age at Onset Recorded Date/T whitney Not Specified Malignant neoplasm of ovary Unknown Malignant neoplasm of breast Unknown father Malignant neoplasm of lung Unknown mother Chronic obstructive pulmonary disease Unk nown Cerebrovascular accident (CVA) Unknown son Myocardial infarction Unknown Chief Complaint and Reason for Visit Chief Complaint TRIGGER FINGER- R RI NG & L MIDDLE. RX HERE Chief Complaint RIGHT SHOULDER Xray room 1 RIGHT SHOULDER PAIN Reason for Visit Injury of right rota tor cuff Chief Complaint Admit Date XRAY November 24, 2024 3:0 8pm LEFT HIP PAIN November 24, 2024 4:1 8pm Chief Complaint Admit Date XRAY November 24, 2024 3:0 8pm LEFT HIP PAIN November 24, 2024 4:1 8pm LEFT HIP December 09, 2024 1:22 pm LEFT HIP March 10, 2025 2:26p m Room 1 March 10, 2025 2:43p m Reason for Visit Admit Date Greater trochanteric bursitis of left hi p December 09, 2024 1:22pm Rotator cuff tendonitis December 09, 2024 1:22pm Chief Complaint Admit Date LEFT HIP March 10, 2025 2:26p m Room 1 March 10, 2025 2:43p m LUMBAR SPINE April 16, 2025 2: 23pm RM 2 April 16, 2025 3: 00pm Reason for Visit Admit Date Degenerative joint disease of left hip J mojgan 2024 2:26pm Greater trochanteric bursitis of left hi p March 10, 2025 2:26pm Lumbar spondylosis March 10, 2025 2:26p m Reason for Visit Admit Date Degenerative joint disease of left hip J mojgan 2024 2:26pm Greater trochanteric bursitis of left hi p March 10, 2025 2:26pm Lumbar spondylosis March 10, 2025 2:26p m Degenerative scoliosis April 16, 2025 2:23pm Hip arthritis April 16, 2025 2: 23pm Lumbar radiculopathy April 16, 2025 2 :23pm Spondylolisthesis April 16, 2025 2: 23pm Additional Source Comments Source Comments (unrecognize d section and content) In the event this informatio n is protected by the Federal Confidentiality of Alcohol and Drug Abuse Patient Records regulations: The Federal rules restrict any use of the information to criminally investigate or prosecute any alcohol or drug abuse patient.[facility]In the event this information is protected by the Federal Confidentiality of Alcohol and Drug Abuse Patient Records regulations: The Federal rules restrict any use of the information to criminally investigate or prosecute any alcohol or drug abuse patient.[facility] CenterIn the event this information is protected by the Federal Confidentiality of Alcohol and Drug Abuse Patient Records regulations: The Federal rules restrict any use of the information to criminally investigate or prosecute any alcohol or drug abuse patient.[facility] CenterIn the event this information is protected by the Federal Confidentiality of Alcohol and Drug Abuse Patient Records regulations: The Federal rules restrict any use of the information to criminally investigate or prosecute any alcohol or drug abuse patient.[facility] CenterIn the event this information is protected by the Federal Confidentiality of Alcohol and Drug Abuse Patient Records regulations: The Federal rules restrict any use of the information to criminally investigate or prosecute any alcohol or drug abuse patient.[facility] CenterIn the event this information is protected by the Federal Confidentiality of Alcohol and Drug Abuse Patient Records regulations: The Federal rules restrict any use of the information to criminally investigate or prosecute any alcohol or drug abuse patient.[facility] CenterIn the event this information is protected by the Federal Confidentiality of Alcohol and Drug Abuse Patient Records regulations: The Federal rules restrict any use of the information to criminally investigate or prosecute any alcohol or drug abuse patient.[facility] CenterIn the event this information is protected by the Federal Confidentiality of Alcohol and Drug Abuse Patient Records regulations: The Federal rules restrict any use of the information to criminally investigate or prosecute any alcohol or drug abuse patient.[facility] CenterIn the event this information is protected by the Federal Confidentiality of Alcohol and Drug Abuse Patient Records regulations: The Federal rules restrict any use of the information to criminally investigate or prosecute any alcohol or drug abuse patient.[facility] CenterIn the event this information is protected by the Federal Confidentiality of Alcohol and Drug Abuse Patient Records regulations: The Federal rules restrict any use of the information to criminally investigate or prosecute any alcohol or drug abuse patient.[facility] CenterIn the event this information is protected by the Federal Confidentiality of Alcohol and Drug Abuse Patient Records regulations: The Federal rules restrict any use of the information to criminally investigate or prosecute any alcohol or drug abuse patient.[facility] CenterIn the event this information is protected by the Federal Confidentiality of Alcohol and Drug Abuse Patient Records regulations: The Federal rules restrict any use of the information to criminally investigate or prosecute any alcohol or drug abuse patient.[facility] CenterIn the event this information is protected by the Federal Confidentiality of Alcohol and Drug Abuse Patient Records regulations: The Federal rules restrict any use of the information to criminally investigate or prosecute any alcohol or drug abuse patient.[facility]In the event this information is protected by the Federal Confidentiality of Alcohol and Drug Abuse Patient Records regulations: The Federal rules restrict any use of the information to criminally investigate or prosecute any alcohol or drug abuse patient.[facility]In the event this information is protected by the Federal Confidentiality of Alcohol and Drug Abuse Patient Records regulations: The Federal rules restrict any use of the information to criminally investigate or prosecute any alcohol or drug abuse patient.[facility] CenterIn the event this information is protected by the Federal Confidentiality of Alcohol and Drug Abuse Patient Records regulations: The Federal rules restrict any use of the information to criminally investigate or prosecute any alcohol or drug abuse patient.[facility] CenterIn the event this information is protected by the Federal Confidentiality of Alcohol and Drug Abuse Patient Records regulations: The Federal rules restrict any use of the information to criminally investigate or prosecute any alcohol or drug abuse patient.[facility] CenterIn the event this information is protected by the Federal Confidentiality of Alcohol and Drug Abuse Patient Records regulations: The Federal rules restrict any use of the information to criminally investigate or prosecute any alcohol or drug abuse patient.[facility] CenterIn the event this information is protected by the Federal Confidentiality of Alcohol and Drug Abuse Patient Records regulations: The Federal rules restrict any use of the information to criminally investigate or prosecute any alcohol or drug abuse patient.[facility] CenterIn the event this information is protected by the Federal Confidentiality of Alcohol and Drug Abuse Patient Records regulations: The Federal rules restrict any use of the information to criminally investigate or prosecute any alcohol or drug abuse patient.[facility] CenterIn the event this information is protected by the Federal Confidentiality of Alcohol and Drug Abuse Patient Records regulations: The Federal rules restrict any use of the information to criminally investigate or prosecute any alcohol or drug abuse patient.[facility]In the event this information is protected by the Federal Confidentiality of Alcohol and Drug Abuse Patient Records regulations: The Federal rules restrict any use of the information to criminally investigate or prosecute any alcohol or drug abuse patient.[facility] CenterIn the event this information is protected by the Federal Confidentiality of Alcohol and Drug Abuse Patient Records regulations: The Federal rules restrict any use of the information to criminally investigate or prosecute any alcohol or drug abuse patient.[facility]In the event this information is protected by the Federal Confidentiality of Alcohol and Drug Abuse Patient Records regulations: The Federal rules restrict any use of the information to criminally investigate or prosecute any alcohol or drug abuse patient.[facility] CenterIn the event this information is protected by the Federal Confidentiality of Alcohol and Drug Abuse Patient Records regulations: The Federal rules restrict any use of the information to criminally investigate or prosecute any alcohol or drug abuse patient.[facility] CenterIn the event this information is protected by the Federal Confidentiality of Alcohol and Drug Abuse Patient Records regulations: The Federal rules restrict any use of the information to criminally investigate or prosecute any alcohol or drug abuse patient.[facility] CenterIn the event this information is protected by the Federal Confidentiality of Alcohol and Drug Abuse Patient Records regulations: The Federal rules restrict any use of the information to criminally investigate or prosecute any alcohol or drug abuse patient.[facility] CenterIn the event this information is protected by the Federal Confidentiality of Alcohol and Drug Abuse Patient Records regulations: The Federal rules restrict any use of the information to criminally investigate or prosecute any alcohol or drug abuse patient.[facility] CenterIn the event this information is protected by the Federal Confidentiality of Alcohol and Drug Abuse Patient Records regulations: The Federal rules restrict any use of the information to criminally investigate or prosecute any alcohol or drug abuse patient.[facility]In the event this information is protected by the Federal Confidentiality of Alcohol and Drug Abuse Patient Records regulations: The Federal rules restrict any use of the information to criminally investigate or prosecute any alcohol or drug abuse patient.[facility]In the event this information is protected by the Federal Confidentiality of Alcohol and Drug Abuse Patient Records regulations: The Federal rules restrict any use of the information to criminally investigate or prosecute any alcohol or drug abuse patient.[facility]In the event this information is protected by the Federal Confidentiality of Alcohol and Drug Abuse Patient Records regulations: The Federal rules restrict any use of the information to criminally investigate or prosecute any alcohol or drug abuse patient.[facility]In the event this information is protected by the Federal Confidentiality of Alcohol and Drug Abuse Patient Records regulations: The Federal rules restrict any use of the information to criminally investigate or prosecute any alcohol or drug abuse patient.[facility]In the event this information is protected by the Federal Confidentiality of Alcohol and Drug Abuse Patient Records regulations: The Federal rules restrict any use of the information to criminally investigate or prosecute any alcohol or drug abuse patient.[facility]In the event this information is protected by the Federal Confidentiality of Alcohol and Drug Abuse Patient Records regulations: The Federal rules restrict any use of the information to criminally investigate or prosecute any alcohol or drug abuse patient.[facility]In the event this information is protected by the Federal Confidentiality of Alcohol and Drug Abuse Patient Records regulations: The Federal rules restrict any use of the information to criminally investigate or prosecute any alcohol or drug abuse patient.[facility]In the event this information is protected by the Federal Confidentiality of Alcohol and Drug Abuse Patient Records regulations: The Federal rules restrict any use of the information to criminally investigate or prosecute any alcohol or drug abuse patient.[facility]In the event this information is protected by the Federal Confidentiality of Alcohol and Drug Abuse Patient Records regulations: The Federal rules restrict any use of the information to criminally investigate or prosecute any alcohol or drug abuse patient.[facility]In the event this information is protected by the Federal Confidentiality of Alcohol and Drug Abuse Patient Records regulations: The Federal rules restrict any use of the information to criminally investigate or prosecute any alcohol or drug abuse patient.[facility]In the event this information is protected by the Federal Confidentiality of Alcohol and Drug Abuse Patient Records regulations: The Federal rules restrict any use of the information to criminally investigate or prosecute any alcohol or drug abuse patient.[facility]In the event this information is protected by the Federal Confidentiality of Alcohol and Drug Abuse Patient Records regulations: The Federal rules restrict any use of the information to criminally investigate or prosecute any alcohol or drug abuse patient.[facility]In the event this information is protected by the Federal Confidentiality of Alcohol and Drug Abuse Patient Records regulations: The Federal rules restrict any use of the information to criminally investigate or prosecute any alcohol or drug abuse patient.[facility]In the event this information is protected by the Federal Confidentiality of Alcohol and Drug Abuse Patient Records regulations: The Federal rules restrict any use of the information to criminally investigate or prosecute any alcohol or drug abuse patient.[facility]In the event this information is protected by the Federal Confidentiality of Alcohol and Drug Abuse Patient Records regulations: The Federal rules restrict any use of the information to criminally investigate or prosecute any alcohol or drug abuse patient.[facility]In the event this information is protected by the Federal Confidentiality of Alcohol and Drug Abuse Patient Records regulations: The Federal rules restrict any use of the information to criminally investigate or prosecute any alcohol or drug abuse patient.[facility]In the event this information is protected by the Federal Confidentiality of Alcohol and Drug Abuse Patient Records regulations: The Federal rules restrict any use of the information to criminally investigate or prosecute any alcohol or drug abuse patient.[facility]In the event this information is protected by the Federal Confidentiality of Alcohol and Drug Abuse Patient Records regulations: The Federal rules restrict any use of the information to criminally investigate or prosecute any alcohol or drug abuse patient.[facility]In the event this information is protected by the Federal Confidentiality of Alcohol and Drug Abuse Patient Records regulations: The Federal rules restrict any use of the information to criminally investigate or prosecute any alcohol or drug abuse patient.[facility]In the event this information is protected by the Federal Confidentiality of Alcohol and Drug Abuse Patient Records regulations: The Federal rules restrict any use of the information to criminally investigate or prosecute any alcohol or drug abuse patient.[facility]In the event this information is protected by the Federal Confidentiality of Alcohol and Drug Abuse Patient Records regulations: The Federal rules restrict any use of the information to criminally investigate or prosecute any alcohol or drug abuse patient.[facility]In the event this information is protected by the Federal Confidentiality of Alcohol and Drug Abuse Patient Records regulations: The Federal rules restrict any use of the information to criminally investigate or prosecute any alcohol or drug abuse patient.[facility]In the event this information is protected by the Federal Confidentiality of Alcohol and Drug Abuse Patient Records regulations: The Federal rules restrict any use of the information to criminally investigate or prosecute any alcohol or drug abuse patient.[facility]In the event this information is protected by the Federal Confidentiality of Alcohol and Drug Abuse Patient Records regulations: The Federal rules restrict any use of the information to criminally investigate or prosecute any alcohol or drug abuse patient.[facility]In the event this information is protected by the Federal Confidentiality of Alcohol and Drug Abuse Patient Records regulations: The Federal rules restrict any use of the information to criminally investigate or prosecute any alcohol or drug abuse patient.[facility]In the event this information is protected by the Federal Confidentiality of Alcohol and Drug Abuse Patient Records regulations: The Federal rules restrict any use of the information to criminally investigate or prosecute any alcohol or drug abuse patient.[facility]In the event this information is protected by the Federal Confidentiality of Alcohol and Drug Abuse Patient Records regulations: The Federal rules restrict any use of the information to criminally investigate or prosecute any alcohol or drug abuse patient.[facility]In the event this information is protected by the Federal Confidentiality of Alcohol and Drug Abuse Patient Records regulations: The Federal rules restrict any use of the information to criminally investigate or prosecute any alcohol or drug abuse patient.[facility]In the event this information is protected by the Federal Confidentiality of Alcohol and Drug Abuse Patient Records regulations: The Federal rules restrict any use of the information to criminally investigate or prosecute any alcohol or drug abuse patient.[facility]In the event this information is protected by the Federal Confidentiality of Alcohol and Drug Abuse Patient Records regulations: The Federal rules restrict any use of the information to criminally investigate or prosecute any alcohol or drug abuse patient.[facility]In the event this information is protected by the Federal Confidentiality of Alcohol and Drug Abuse Patient Records regulations: The Federal rules restrict any use of the information to criminally investigate or prosecute any alcohol or drug abuse patient.[facility]In the event this information is protected by the Federal Confidentiality of Alcohol and Drug Abuse Patient Records regulations: The Federal rules restrict any use of the information to criminally investigate or prosecute any alcohol or drug abuse patient.[facility]In the event this information is protected by the Federal Confidentiality of Alcohol and Drug Abuse Patient Records regulations: The Federal rules restrict any use of the information to criminally investigate or prosecute any alcohol or drug abuse patient.[facility]In the event this information is protected by the Federal Confidentiality of Alcohol and Drug Abuse Patient Records regulations: The Federal rules restrict any use of the information to criminally investigate or prosecute any alcohol or drug abuse patient.[facility]In the event this information is protected by the Federal Confidentiality of Alcohol and Drug Abuse Patient Records regulations: The Federal rules restrict any use of the information to criminally investigate or prosecute any alcohol or drug abuse patient.[facility]In the event this information is protected by the Federal Confidentiality of Alcohol and Drug Abuse Patient Records regulations: The Federal rules restrict any use of the information to criminally investigate or prosecute any alcohol or drug abuse patient.[facility]In the event this information is protected by the Federal Confidentiality of Alcohol and Drug Abuse Patient Records regulations: The Federal rules restrict any use of the information to criminally investigate or prosecute any alcohol or drug abuse patient.[facility]In the event this information is protected by the Federal Confidentiality of Alcohol and Drug Abuse Patient Records regulations: The Federal rules restrict any use of the information to criminally investigate or prosecute any alcohol or drug abuse patient.[facility]In the event this information is protected by the Federal Confidentiality of Alcohol and Drug Abuse Patient Records regulations: The Federal rules restrict any use of the information to criminally investigate or prosecute any alcohol or drug abuse patient.[facility]In the event this information is protected by the Federal Confidentiality of Alcohol and Drug Abuse Patient Records regulations: The Federal rules restrict any use of the information to criminally investigate or prosecute any alcohol or drug abuse patient.[facility]In the event this information is protected by the Federal Confidentiality of Alcohol and Drug Abuse Patient Records regulations: The Federal rules restrict any use of the information to criminally investigate or prosecute any alcohol or drug abuse patient.[facility]In the event this information is protected by the Federal Confidentiality of Alcohol and Drug Abuse Patient Records regulations: The Federal rules restrict any use of the information to criminally investigate or prosecute any alcohol or drug abuse patient.[facility]In the event this information is protected by the Federal Confidentiality of Alcohol and Drug Abuse Patient Records regulations: The Federal rules restrict any use of the information to criminally investigate or prosecute any alcohol or drug abuse patient.[facility]In the event this information is protected by the Federal Confidentiality of Alcohol and Drug Abuse Patient Records regulations: The Federal rules restrict any use of the information to criminally investigate or prosecute any alcohol or drug abuse patient.[facility]In the event this information is protected by the Federal Confidentiality of Alcohol and Drug Abuse Patient Records regulations: The Federal rules restrict any use of the information to criminally investigate or prosecute any alcohol or drug abuse patient.[facility]In the event this information is protected by the Federal Confidentiality of Alcohol and Drug Abuse Patient Records regulations: The Federal rules restrict any use of the information to criminally investigate or prosecute any alcohol or drug abuse patient.[facility]In the event this information is protected by the Federal Confidentiality of Alcohol and Drug Abuse Patient Records regulations: The Federal rules restrict any use of the information to criminally investigate or prosecute any alcohol or drug abuse patient.[facility]In the event this information is protected by the Federal Confidentiality of Alcohol and Drug Abuse Patient Records regulations: The Federal rules restrict any use of the information to criminally investigate or prosecute any alcohol or drug abuse patient.[facility]In the event this information is protected by the Federal Confidentiality of Alcohol and Drug Abuse Patient Records regulations: The Federal rules restrict any use of the information to criminally investigate or prosecute any alcohol or drug abuse patient.[facility]In the event this information is protected by the Federal Confidentiality of Alcohol and Drug Abuse Patient Records regulations: The Federal rules restrict any use of the information to criminally investigate or prosecute any alcohol or drug abuse patient.[facility]In the event this information is protected by the Federal Confidentiality of Alcohol and Drug Abuse Patient Records regulations: The Federal rules restrict any use of the information to criminally investigate or prosecute any alcohol or drug abuse patient.[facility]In the event this information is protected by the Federal Confidentiality of Alcohol and Drug Abuse Patient Records regulations: The Federal rules restrict any use of the information to criminally investigate or prosecute any alcohol or drug abuse patient.[facility]In the event this information is protected by the Federal Confidentiality of Alcohol and Drug Abuse Patient Records regulations: The Federal rules restrict any use of the information to criminally investigate or prosecute any alcohol or drug abuse patient.[facility]In the event this information is protected by the Federal Confidentiality of Alcohol and Drug Abuse Patient Records regulations: The Federal rules restrict any use of the information to criminally investigate or prosecute any alcohol or drug abuse patient.[facility] CenterIn the event this information is protected by the Federal Confidentiality of Alcohol and Drug Abuse Patient Records regulations: The Federal rules restrict any use of the information to criminally investigate or prosecute any alcohol or drug abuse patient.[facility] CenterIn the event this information is protected by the Federal Confidentiality of Alcohol and Drug Abuse Patient Records regulations: The Federal rules restrict any use of the information to criminally investigate or prosecute any alcohol or drug abuse patient.[facility] CenterIn the event this information is protected by the Federal Confidentiality of Alcohol and Drug Abuse Patient Records regulations: The Federal rules restrict any use of the information to criminally investigate or prosecute any alcohol or drug abuse patient.[facility] CenterIn the event this information is protected by the Federal Confidentiality of Alcohol and Drug Abuse Patient Records regulations: The Federal rules restrict any use of the information to criminally investigate or prosecute any alcohol or drug abuse patient.[facility] CenterIn the event this information is protected by the Federal Confidentiality of Alcohol and Drug Abuse Patient Records regulations: The Federal rules restrict any use of the information to criminally investigate or prosecute any alcohol or drug abuse patient.[facility] CenterIn the event this information is protected by the Federal Confidentiality of Alcohol and Drug Abuse Patient Records regulations: The Federal rules restrict any use of the information to criminally investigate or prosecute any alcohol or drug abuse patient.[facility] CenterIn the event this information is protected by the Federal Confidentiality of Alcohol and Drug Abuse Patient Records regulations: The Federal rules restrict any use of the information to criminally investigate or prosecute any alcohol or drug abuse patient.[facility] CenterIn the event this information is protected by the Federal Confidentiality of Alcohol and Drug Abuse Patient Records regulations: The Federal rules restrict any use of the information to criminally investigate or prosecute any alcohol or drug abuse patient.[facility] CenterIn the event this information is protected by the Federal Confidentiality of Alcohol and Drug Abuse Patient Records regulations: The Federal rules restrict any use of the information to criminally investigate or prosecute any alcohol or drug abuse patient.[facility] CenterIn the event this information is protected by the Federal Confidentiality of Alcohol and Drug Abuse Patient Records regulations: The Federal rules restrict any use of the information to criminally investigate or prosecute any alcohol or drug abuse patient.[facility] CenterIn the event this information is protected by the Federal Confidentiality of Alcohol and Drug Abuse Patient Records regulations: The Federal rules restrict any use of the information to criminally investigate or prosecute any alcohol or drug abuse patient.[facility] CenterIn the event this information is protected by the Federal Confidentiality of Alcohol and Drug Abuse Patient Records regulations: The Federal rules restrict any use of the information to criminally investigate or prosecute any alcohol or drug abuse patient.[facility] CenterIn the event this information is protected by the Federal Confidentiality of Alcohol and Drug Abuse Patient Records regulations: The Federal rules restrict any use of the information to criminally investigate or prosecute any alcohol or drug abuse patient.[facility] CenterIn the event this information is protected by the Federal Confidentiality of Alcohol and Drug Abuse Patient Records regulations: The Federal rules restrict any use of the information to criminally investigate or prosecute any alcohol or drug abuse patient.[facility] CenterIn the event this information is protected by the Federal Confidentiality of Alcohol and Drug Abuse Patient Records regulations: The Federal rules restrict any use of the information to criminally investigate or prosecute any alcohol or drug abuse patient.[facility] CenterIn the event this information is protected by the Federal Confidentiality of Alcohol and Drug Abuse Patient Records regulations: The Federal rules restrict any use of the information to criminally investigate or prosecute any alcohol or drug abuse patient.[facility] CenterIn the event this information is protected by the Federal Confidentiality of Alcohol and Drug Abuse Patient Records regulations: The Federal rules restrict any use of the information to criminally investigate or prosecute any alcohol or drug abuse patient.[facility] CenterIn the event this information is protected by the Federal Confidentiality of Alcohol and Drug Abuse Patient Records regulations: The Federal rules restrict any use of the information to criminally investigate or prosecute any alcohol or drug abuse patient.[facility] CenterIn the event this information is protected by the Federal Confidentiality of Alcohol and Drug Abuse Patient Records regulations: The Federal rules restrict any use of the information to criminally investigate or prosecute any alcohol or drug abuse patient.[facility] CenterIn the event this information is protected by the Federal Confidentiality of Alcohol and Drug Abuse Patient Records regulations: The Federal rules restrict any use of the information to criminally investigate or prosecute any alcohol or drug abuse patient.[facility] CenterIn the event this information is protected by the Federal Confidentiality of Alcohol and Drug Abuse Patient Records regulations: The Federal rules restrict any use of the information to criminally investigate or prosecute any alcohol or drug abuse patient.[facility] CenterIn the event this information is protected by the Federal Confidentiality of Alcohol and Drug Abuse Patient Records regulations: The Federal rules restrict any use of the information to criminally investigate or prosecute any alcohol or drug abuse patient.[facility] CenterIn the event this information is protected by the Federal Confidentiality of Alcohol and Drug Abuse Patient Records regulations: The Federal rules restrict any use of the information to criminally investigate or prosecute any alcohol or drug abuse patient.[facility] CenterIn the event this information is protected by the Federal Confidentiality of Alcohol and Drug Abuse Patient Records regulations: The Federal rules restrict any use of the information to criminally investigate or prosecute any alcohol or drug abuse patient.[facility] CenterIn the event this information is protected by the Federal Confidentiality of Alcohol and Drug Abuse Patient Records regulations: The Federal rules restrict any use of the information to criminally investigate or prosecute any alcohol or drug abuse patient.[facility] CenterIn the event this information is protected by the Federal Confidentiality of Alcohol and Drug Abuse Patient Records regulations: The Federal rules restrict any use of the information to criminally investigate or prosecute any alcohol or drug abuse patient.[facility] CenterIn the event this information is protected by the Federal Confidentiality of Alcohol and Drug Abuse Patient Records regulations: The Federal rules restrict any use of the information to criminally investigate or prosecute any alcohol or drug abuse patient.[facility] CenterIn the event this information is protected by the Federal Confidentiality of Alcohol and Drug Abuse Patient Records regulations: The Federal rules restrict any use of the information to criminally investigate or prosecute any alcohol or drug abuse patient.[facility] CenterIn the event this information is protected by the Federal Confidentiality of Alcohol and Drug Abuse Patient Records regulations: The Federal rules restrict any use of the information to criminally investigate or prosecute any alcohol or drug abuse patient.[facility] CenterIn the event this information is protected by the Federal Confidentiality of Alcohol and Drug Abuse Patient Records regulations: The Federal rules restrict any use of the information to criminally investigate or prosecute any alcohol or drug abuse patient.[facility] CenterIn the event this information is protected by the Federal Confidentiality of Alcohol and Drug Abuse Patient Records regulations: The Federal rules restrict any use of the information to criminally investigate or prosecute any alcohol or drug abuse patient.[facility] CenterIn the event this information is protected by the Federal Confidentiality of Alcohol and Drug Abuse Patient Records regulations: The Federal rules restrict any use of the information to criminally investigate or prosecute any alcohol or drug abuse patient.[facility] CenterIn the event this information is protected by the Federal Confidentiality of Alcohol and Drug Abuse Patient Records regulations: The Federal rules restrict any use of the information to criminally investigate or prosecute any alcohol or drug abuse patient.[facility] CenterIn the event this information is protected by the Federal Confidentiality of Alcohol and Drug Abuse Patient Records regulations: The Federal rules restrict any use of the information to criminally investigate or prosecute any alcohol or drug abuse patient.[facility] CenterIn the event this information is protected by the Federal Confidentiality of Alcohol and Drug Abuse Patient Records regulations: The Federal rules restrict any use of the information to criminally investigate or prosecute any alcohol or drug abuse patient.[facility] CenterIn the event this information is protected by the Federal Confidentiality of Alcohol and Drug Abuse Patient Records regulations: The Federal rules restrict any use of the information to criminally investigate or prosecute any alcohol or drug abuse patient.[facility] CenterIn the event this information is protected by the Federal Confidentiality of Alcohol and Drug Abuse Patient Records regulations: The Federal rules restrict any use of the information to criminally investigate or prosecute any alcohol or drug abuse patient.[facility] CenterIn the event this information is protected by the Federal Confidentiality of Alcohol and Drug Abuse Patient Records regulations: The Federal rules restrict any use of the information to criminally investigate or prosecute any alcohol or drug abuse patient.[facility] CenterIn the event this information is protected by the Federal Confidentiality of Alcohol and Drug Abuse Patient Records regulations: The Federal rules restrict any use of the information to criminally investigate or prosecute any alcohol or drug abuse patient.[facility] CenterIn the event this information is protected by the Federal Confidentiality of Alcohol and Drug Abuse Patient Records regulations: The Federal rules restrict any use of the information to criminally investigate or prosecute any alcohol or drug abuse patient.[facility] CenterIn the event this information is protected by the Federal Confidentiality of Alcohol and Drug Abuse Patient Records regulations: The Federal rules restrict any use of the information to criminally investigate or prosecute any alcohol or drug abuse patient.[facility] CenterIn the event this information is protected by the Federal Confidentiality of Alcohol and Drug Abuse Patient Records regulations: The Federal rules restrict any use of the information to criminally investigate or prosecute any alcohol or drug abuse patient.[facility] CenterIn the event this information is protected by the Federal Confidentiality of Alcohol and Drug Abuse Patient Records regulations: The Federal rules restrict any use of the information to criminally investigate or prosecute any alcohol or drug abuse patient.[facility] CenterIn the event this information is protected by the Federal Confidentiality of Alcohol and Drug Abuse Patient Records regulations: The Federal rules restrict any use of the information to criminally investigate or prosecute any alcohol or drug abuse patient.[facility] CenterIn the event this information is protected by the Federal Confidentiality of Alcohol and Drug Abuse Patient Records regulations: The Federal rules restrict any use of the information to criminally investigate or prosecute any alcohol or drug abuse patient.[facility] CenterIn the event this information is protected by the Federal Confidentiality of Alcohol and Drug Abuse Patient Records regulations: The Federal rules restrict any use of the information to criminally investigate or prosecute any alcohol or drug abuse patient.[facility] CenterIn the event this information is protected by the Federal Confidentiality of Alcohol and Drug Abuse Patient Records regulations: The Federal rules restrict any use of the information to criminally investigate or prosecute any alcohol or drug abuse patient.[facility] CenterIn the event this information is protected by the Federal Confidentiality of Alcohol and Drug Abuse Patient Records regulations: The Federal rules restrict any use of the information to criminally investigate or prosecute any alcohol or drug abuse patient.[facility] CenterIn the event this information is protected by the Federal Confidentiality of Alcohol and Drug Abuse Patient Records regulations: The Federal rules restrict any use of the information to criminally investigate or prosecute any alcohol or drug abuse patient.[facility] CenterIn the event this information is protected by the Federal Confidentiality of Alcohol and Drug Abuse Patient Records regulations: The Federal rules restrict any use of the information to criminally investigate or prosecute any alcohol or drug abuse patient.[facility] CenterIn the event this information is protected by the Federal Confidentiality of Alcohol and Drug Abuse Patient Records regulations: The Federal rules restrict any use of the information to criminally investigate or prosecute any alcohol or drug abuse patient.[facility] CenterIn the event this information is protected by the Federal Confidentiality of Alcohol and Drug Abuse Patient Records regulations: The Federal rules restrict any use of the information to criminally investigate or prosecute any alcohol or drug abuse patient.[facility] CenterIn the event this information is protected by the Federal Confidentiality of Alcohol and Drug Abuse Patient Records regulations: The Federal rules restrict any use of the information to criminally investigate or prosecute any alcohol or drug abuse patient.[facility] CenterIn the event this information is protected by the Federal Confidentiality of Alcohol and Drug Abuse Patient Records regulations: The Federal rules restrict any use of the information to criminally investigate or prosecute any alcohol or drug abuse patient.[facility] CenterIn the event this information is protected by the Federal Confidentiality of Alcohol and Drug Abuse Patient Records regulations: The Federal rules restrict any use of the information to criminally investigate or prosecute any alcohol or drug abuse patient.[facility] CenterIn the event this information is protected by the Federal Confidentiality of Alcohol and Drug Abuse Patient Records regulations: The Federal rules restrict any use of the information to criminally investigate or prosecute any alcohol or drug abuse patient.[facility] CenterIn the event this information is protected by the Federal Confidentiality of Alcohol and Drug Abuse Patient Records regulations: The Federal rules restrict any use of the information to criminally investigate or prosecute any alcohol or drug abuse patient.[facility] CenterIn the event this information is protected by the Federal Confidentiality of Alcohol and Drug Abuse Patient Records regulations: The Federal rules restrict any use of the information to criminally investigate or prosecute any alcohol or drug abuse patient.[facility] CenterIn the event this information is protected by the Federal Confidentiality of Alcohol and Drug Abuse Patient Records regulations: The Federal rules restrict any use of the information to criminally investigate or prosecute any alcohol or drug abuse patient.[facility] CenterIn the event this information is protected by the Federal Confidentiality of Alcohol and Drug Abuse Patient Records regulations: The Federal rules restrict any use of the information to criminally investigate or prosecute any alcohol or drug abuse patient.[facility] CenterIn the event this information is protected by the Federal Confidentiality of Alcohol and Drug Abuse Patient Records regulations: The Federal rules restrict any use of the information to criminally investigate or prosecute any alcohol or drug abuse patient.[facility] CenterIn the event this information is protected by the Federal Confidentiality of Alcohol and Drug Abuse Patient Records regulations: The Federal rules restrict any use of the information to criminally investigate or prosecute any alcohol or drug abuse patient.[facility] CenterIn the event this information is protected by the Federal Confidentiality of Alcohol and Drug Abuse Patient Records regulations: The Federal rules restrict any use of the information to criminally investigate or prosecute any alcohol or drug abuse patient.[facility] CenterIn the event this information is protected by the Federal Confidentiality of Alcohol and Drug Abuse Patient Records regulations: The Federal rules restrict any use of the information to criminally investigate or prosecute any alcohol or drug abuse patient.[facility] CenterIn the event this information is protected by the Federal Confidentiality of Alcohol and Drug Abuse Patient Records regulations: The Federal rules restrict any use of the information to criminally investigate or prosecute any alcohol or drug abuse patient.[facility] CenterIn the event this information is protected by the Federal Confidentiality of Alcohol and Drug Abuse Patient Records regulations: The Federal rules restrict any use of the information to criminally investigate or prosecute any alcohol or drug abuse patient.[facility] CenterIn the event this information is protected by the Federal Confidentiality of Alcohol and Drug Abuse Patient Records regulations: The Federal rules restrict any use of the information to criminally investigate or prosecute any alcohol or drug abuse patient.[facility] CenterIn the event this information is protected by the Federal Confidentiality of Alcohol and Drug Abuse Patient Records regulations: The Federal rules restrict any use of the information to criminally investigate or prosecute any alcohol or drug abuse patient.[facility] CenterIn the event this information is protected by the Federal Confidentiality of Alcohol and Drug Abuse Patient Records regulations: The Federal rules restrict any use of the information to criminally investigate or prosecute any alcohol or drug abuse patient.[facility] CenterIn the event this information is protected by the Federal Confidentiality of Alcohol and Drug Abuse Patient Records regulations: The Federal rules restrict any use of the information to criminally investigate or prosecute any alcohol or drug abuse patient.[facility] CenterIn the event this information is protected by the Federal Confidentiality of Alcohol and Drug Abuse Patient Records regulations: The Federal rules restrict any use of the information to criminally investigate or prosecute any alcohol or drug abuse patient.[facility] CenterIn the event this information is protected by the Federal Confidentiality of Alcohol and Drug Abuse Patient Records regulations: The Federal rules restrict any use of the information to criminally investigate or prosecute any alcohol or drug abuse patient.[facility] CenterIn the event this information is protected by the Federal Confidentiality of Alcohol and Drug Abuse Patient Records regulations: The Federal rules restrict any use of the information to criminally investigate or prosecute any alcohol or drug abuse patient.[facility] CenterIn the event this information is protected by the Federal Confidentiality of Alcohol and Drug Abuse Patient Records regulations: The Federal rules restrict any use of the information to criminally investigate or prosecute any alcohol or drug abuse patient.[facility] CenterIn the event this information is protected by the Federal Confidentiality of Alcohol and Drug Abuse Patient Records regulations: The Federal rules restrict any use of the information to criminally investigate or prosecute any alcohol or drug abuse patient.[facility] CenterIn the event this information is protected by the Federal Confidentiality of Alcohol and Drug Abuse Patient Records regulations: The Federal rules restrict any use of the information to criminally investigate or prosecute any alcohol or drug abuse patient.[facility] CenterIn the event this information is protected by the Federal Confidentiality of Alcohol and Drug Abuse Patient Records regulations: The Federal rules restrict any use of the information to criminally investigate or prosecute any alcohol or drug abuse patient.[facility] CenterIn the event this information is protected by the Federal Confidentiality of Alcohol and Drug Abuse Patient Records regulations: The Federal rules restrict any use of the information to criminally investigate or prosecute any alcohol or drug abuse patient.[facility] Reason for Visit (unrecogniz ed section and content) Reason Comments Occupational Therapy OT Progress Note Specialty Diagnoses / Procedures Referred By Shiraz t Referred To Contact OCCUPATIONAL THERAPY Diagnoses Blindness right eye category 3, blindness left eye category 4 Procedures CONSULT TO HORSE AND [facility] DRIVER OCCUPATIONAL THERAPY EVAL HIGH COMPLEX 60 MINS Wolf Mason, OD [address] [place] [address] Michelle Perez, OT/L Referral ID Status Reason Start Date Expiration Date Visits Requested Visits Authorized [id number] Authorized Auto-Generat ed Referral 09/02/2022 09/01/2023 20 20 Reason Comments Post-op (Ophthalmology) Right Eye 4 week PO TBX (OD 10/26/2021) Reason Comments Well Woman Reason Comments Patient Question Reason Comments Post-op (Ophthalmology) Right Eye 8 week PO TBX (OD 10/26/2021) Reason Comments Established Patient follow up- needs MRA per and discuss meds,H/A's Reason Onset Date Comments Refill Request 01/12/2022 Reason Comments Medication Problem Reason Onset Date Comments Refill Request 02/09/2022 Reason Comments Results Reason Comments Dellen Evaluation upper left Lid irritation x 1 month edison y in upper lid Reason Comments Lab & Test Results Reason Comments Corneal Ulcer Follow Up Reason Comments 2 week Follow up Cataract measurement Blurry Vision Both Eyes Reason Comments Glaucoma Follow Up 3 mo CHECK IOP/HVF Reason Comments Blurred Vision Both Eyes Difficulty Reading Both Eyes Glare Both Eyes Reason Comments Preparations For Surgery IOL Order Right Eye for 06/25/22 surgery Reason Comments Refill Request Reason Comments Patient Question Request medication n ot on med list please Reason Comments New Pain Reason Comments Appointment Reason Comments CARD New Patient Consult PXE Reason Onset Date Comments Refill Request 06/22/2022 Pre-op drops Specialty Diagnoses / Procedures Referred By Shiraz johnson Referred To Contact Diagnoses Combined 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 Photopsia Combined 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 [H25.811]Photopsia [H53.19] Procedures XCAPSL CTRC RMVL INSJ IO LENS PROSTH W/O ECP SUTURE IRIS CILIARY BODY SPX RETRIEVAL SUTURE OPH BMTRY PRTL COHER INTRFRMTRY IO LENS PWR FAVIO PHACOEMULSIFICATION CATARACT IMPLANT INTRAOCULAR LENS W/O ENDOSCOPIC CYCLOPHOTOCOAGULATION REPAIR W/SUTURE IRIS AND CILIARY BODY [facility] [address] [place] [address] Referral ID Status Reason Start Date Expiration Date Visits Re quested Visits Authorized [id number] 1 1 Reason Comments Post-op (Ophthalmology) Right Eye CE/IOL right eye 06/25/22 Reason Comments Manager Paper - Other Reason Comments Cough Reason Comments Blurred Vision Both Eyes Reason Comments Post-op Cataract OD Status Post Traditio nal Cataract Surgery with PC IOL - Right eye (06/25/2022) Photopsia 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, Severe Stage Reason Comments Patient Update Reason Onset Date Comments Refill Request 07/23/2022 Reason Comments Medication Problem flonase Reason Comments Post-op (Ophthalmology) Right Eye -s/p c ataract extraction with intraocular lens implantation right eye with pupilloplasty and trimming of exposed suture tip right eye 06/25/22 Eye Discharge Right Eye Blurred Vision Right Eye Pain Right eye, occasiona lly in the right eye sharp short random pain Reason Onset Date Comments Refill Request 08/10/2022 Reason Comments low vision eval Reason Comments OT EVAL Occupational Therapy Specialty Diagnoses / Procedures Referred By Shiraz johnson Referred To Contact Occupational Therapy / OCCUPATIONAL THERAPY Diagnoses Blindness right eye category 3, 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, blindness left eye category 4 [H54.0X34] Procedures OFFICE/OUTPATIENT NEW MODERATE MDM 45-59 MINUTES NEW RS OT LOW VISION Wolf Mason, OD [address] [facility] [address] [place] [address] Michelle Perez, OT/L Referral ID Status Reason Start Date Expiration Date Visits Re quested Visits Authorized [id number] Closed 09/19/2022 12/18/2022 1 1 Reason Comments Follow Up Phone Call Reason Comments Orders Reason Comments Schedule Surgery Reason Comments Medication Request Reason Comments Mammogram Result Call Back Reason Comments Tearing Left Eye Specialty Diagnoses / Procedures Referred By Contac t Referred To Contact Ophthalmology / OPHTHALMOLOGY Diagnoses Follow-up exam 3 month VaTa (r/s 6 wk after cataract surgery wtih Dr. Eugene) Procedures EST ADULT Self Cynthia Ramos MD [address] [place] [address] Referral ID Status Reason Start Date Expiration Date Visits Re quested Visits Authorized [id number] Closed 09/25/2022 12/24/2022 1 1 Reason Comments Physical preop clearance for surgeries on 11/07/22, 11/15/22 Reason Comments Occupational Therapy Reason Comments Established Patient Pain Specialty Diagnoses / Procedures Referred By Contact Referred To Contact [facility] Diagnoses Hand pain Procedures HAND PAIN [facility] [address] [place] [address] Referral ID Status Reason Start Date Expiration Date V isits Requested Visits Authorized [id number] Closed OON/Self Pay Override 09/11/2022 09/01/2023 1 1 Reason Comments Returning Patient's Call ascan Reason Comments A-scan IOL Calculations Reason Comments Appointment Questions regarding surgery Reason Comments Post-op (Ophthalmology) Left Eye PEIOL O S and bleb revision (bleb reduction) x 11/15/2022 Reason Comments Established Patient Post Op Pain Reason Comments Post-op (Ophthalmology) Right Eye PEIOL OS and bleb revision (bleb reduction) x 11/15/2022 Reason Comments Eye Problem Reason Comments Patient Question Nurse To Address Reason Comments Follow Up For s/p PEIOL and bleb r eduction surgery LEFT EYE 11/15/2022 Reason Comments Procedure Vitreolysis left eye Reason Onset Date Comments Refill Request 12/12/2022 SEE RX NOTES Reason Comments Glaucoma Follow Up 2 mo CHECK IOP Reason Comments requesting lab order Reason Comments GERD Peptic ulcer at age 14. She is not sure if she has blood in her stool. Taking Tums more often. Thinks most symptoms are due to PXE Reason Onset Date Comments Refill Request 05/03/2023 Reason Comments Handicapped Placard Renewal Reason Comments Established Patient Xrays taken 10/09/2022 Pain Xrays taken 10/09/2022 Post Op Last seen 11/19/[address] R ring finger trigger finger release Swelling Last seen 11/19/[address] R ring finger trigger finger release Reason Onset Date Comments Erroneous encounter-disregard 06/25/2023 Reason Comments Radiology US Specialty Diagnoses / Procedures Referred By Contac t Referred To Contact [facility] Diagnoses Abnormal mammogram Procedures US BREAST LTD RT US BREAST UNI REAL TIME WITH IMAGE LIMITED Destiney Mckeon APRN.HYDROGENATION STILL OPERATOR [address] [place] [address] [facility] [address] [place] [address] Referral ID Status Reason Start Date Expiration Date V isits Requested Visits Authorized [id number] Closed Auto-Generate d Referral 09/28/2022 10/28/2023 1 1 Specialty Diagnoses / Procedures Referred By Shiraz johnson Referred To Contact [facility] Diagnoses Encounter for screening mammogram for high-risk patient Procedures mamograms screening Ifeoma Davis MD [address] [place] [address] [facility] [address] [place] [address] Referral ID Status Reason Start Date Expiration Date V isits Requested Visits Authorized [id number] Closed OON/Self Pay Override 09/11/2022 09/01/2023 1 1 Reason Onset Date Comments Refill Request 07/23/2023 Reason Comments Glaucoma Follow Up 6 month HVF 24-2 OU & MAC OCT Reason Onset Date Comments Population Health Navigation Outreach 10/04/2023 [place] Care Gaps Reason Onset Date Comments Population Health Navigation Outreach 10/25/2023 [place] AWV Reason Onset Date Comments Refill Request 11/13/2023 Reason Comments Nasal Congestion drainage, ear pain, headache, sore throat x 1 week Reason Comments Yearly Exam Reason Onset Date Comments Refill Request 01/01/2024 Reason Comments Glaucoma Follow up Reason Comments Physical Reason Comments Rash right hand rash, itc dolly and blistering x 2 days Reason Onset Date Comments Refill Request 2024 Reason Comments Letter Reason Onset Date Comments Population Health Navigation Outreach 05/29/2024 Med adherence Reason Comments F/U 6 months needs some home heal th care due to vision loss Reason Onset Date Comments Population Health Navigation Outreach 06/12/2024 Bradly Mary Javier PCSA Reason Onset Date Comments Population Health Navigation Outreach 06/15/2024 Med Adherence Reason Comments Patient Question Reason Onset Date Comments Refill Request 06/29/2024 Reason Comments Headache TINOCO, bodyaches, fatig ue x 3 days Reason Comments Orders Reason Comments Fax Request Reason Comments Results Reason Onset Date Comments Population Health Navigation Outreach 08/10/2024 Bradly Hollowaydomingasalo Burnett [place] PCSA Reason Onset Date Comments Refill Request 09/08/2024 Reason Comments Problem Visit Reason Comments New Patient Following up for sle ep study testing- c/o excessive daytime sleepiness, quality of life decreased, trouble sleeping due to eye surgeries Reason Comments F/U 6 months Reason Comments Future Appointment Reason Comments Memory Loss Body aches, dry mout h Reason Comments Follow Up For Memory impairment Reason Comments Glaucoma Follow Up Reason Comments Urinary Problem Pressure x 1 day Reason Onset Date Comments Results 11/02/2024 Reason Comments Recheck 10/31/24 UA done at [facility] care, always tired Reason Comments Recheck 2 week follow up Reason Comments Results, Lab Reason Onset Date Comments Results 12/17/2024 Reason Onset Date Comments Refill Request 12/23/2024 Reason Comments Recheck 6 week follow up Reason Comments Procedure Specialty Diagnoses / Procedures Referred By Shiraz t Referred To Contact SLEEP DISORDERS Diagnoses Snoring Other hypersomnia Other sleep disorders Periodic limb movement disorder Essential (primary) hypertension Snoring [R06.83]; Excessive daytime sleepiness [G47.19]; Non-restorative sleep [G47.8]; PLMD (periodic limb movement disorder) [G47.61]; Primary hypertension [I10] Procedures POLYSOM 6/>YRS SLEEP 4/> ADDL BRIDGET ATTND POLYSOMNOGRAM Kimberley Ambrocio, MED PEDS.HYDROGENATION STILL OPERATOR [address] [place] [address] Phone: tel: fax: [facility] [address] [place] [address] Phone: tel: fax: Referral ID Status Reason Start Date Expiration Date Visits Re quested Visits Authorized [id number] Closed 11/04/2024 09/01/2025 1 1 Reason Comments DME Order Request Reason Comments TDAP order Reason Comments Imm/Inj Reason Comments Appointment Urgent issue. 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) on 03/25/25 Reason Comments Cough Chest congestion x 2 weeks Reason Comments F/U 3 Month Care Teams (unrecognized sec tion and content) Dietitian Teaching Relationship Specialty Start Date End Date Ifeoma Davis MD [address] [facility] [place] [address] PCP - General Internal Medicine 12/07/14 Dietitian Teaching Relationship Specialty Start Date End Date Ifeoma Davis MD [address] [facility] [place] [address] PCP - General Internal Medicine 12/07/14 Dietitian Teaching Relationship Specialty Start Date End Date Ifeoma Davis MD [address] [facility] [place] [address] PCP - General Internal Medicine 12/07/14 Dietitian Teaching Relationship Specialty Start Date End Date Ifeoma Davis MD [address] [facility] [place] [address] PCP - General Internal Medicine 12/07/14 Dietitian Teaching Relationship Specialty Start Date End Date Ifeoma Davis MD [address] [facility] [place] [address] PCP - General Internal Medicine 12/07/14 Dietitian Teaching Relationship Specialty Start Date End Date Ifeoma Davis MD [address] [facility] [place] [address] PCP - General Internal Medicine 12/07/14 Dietitian Teaching Relationship Specialty Start Date End Date Ifeoma Davis MD [address] [place] [address] PCP - General Internal Medicine 12/07/14 Dietitian Teaching Relationship Specialty Start Date End Date Ifeoma Davis MD [address] [facility] [place] [address] PCP - General Internal Medicine 12/07/14 Dietitian Teaching Relationship Specialty Start Date End Date Ifeoma Davis MD [address] [facility] [place] [address] PCP - General Internal Medicine 12/07/14 Dietitian Teaching Relationship Specialty Start Date End Date Ifeoma Davis MD [address] [facility] [place] [address] PCP - General Internal Medicine 12/07/14 Dietitian Teaching Relationship Specialty Start Date End Date Ifeoma Davis MD [address] [facility] [place] [address] PCP - General Internal Medicine 12/07/14 Dietitian Teaching Relationship Specialty Start Date End Date Ifeoma Davis MD [address] [facility] [place] [address] PCP - General Internal Medicine 12/07/14 Dietitian Teaching Relationship Specialty Start Date End Date Ifeoma Davis MD [address] [facility] [place] [address] PCP - General Internal Medicine 12/07/14 Dietitian Teaching Relationship Specialty Start Date End Date Ifeoma Davis MD [address] [facility] [place] [address] PCP - General Internal Medicine 12/07/14 Dietitian Teaching Relationship Specialty Start Date End Date Ifeoma Davis MD [address] [facility] [place] [address] PCP - General Internal Medicine 12/07/14 Dietitian Teaching Relationship Specialty Start Date End Date Ifeoma Davis MD [address] [place] [address] PCP - General Internal Medicine 12/07/14 Dietitian Teaching Relationship Specialty Start Date End Date Ifeoma Davis MD [address] [facility] [place] [address] PCP - General Internal Medicine 12/07/14 Dietitian Teaching Relationship Specialty Start Date End Date Ifeoma Davis MD [address] [facility] [place] [address] PCP - General Internal Medicine 12/07/14 Dietitian Teaching Relationship Specialty Start Date End Date Ifeoma Davis MD [address] [facility] [place] [address] PCP - General Internal Medicine 12/07/14 Dietitian Teaching Relationship Specialty Start Date End Date Ifeoma aDvis MD [address] [facility] [place] [address] PCP - General Internal Medicine 12/07/14 Dietitian Teaching Relationship Specialty Start Date End Date Ifeoma Davis MD [address] [facility] [place] [address] PCP - General Internal Medicine 12/07/14 Dietitian Teaching Relationship Specialty Start Date End Date Ifeoma Davis MD [address] [facility] [place] [address] PCP - General Internal Medicine 12/07/14 Dietitian Teaching Relationship Specialty Start Date End Date Ifeoma Davis MD [address] [facility] [place] [address] PCP - General Internal Medicine 12/07/14 Dietitian Teaching Relationship Specialty Start Date End Date Ifeoma Davis MD [address] [facility] [place] [address] PCP - General Internal Medicine 12/07/14 Dietitian Teaching Relationship Specialty Start Date End Date Ifeoma Davis MD [address] [place] [address] PCP - General Internal Medicine 12/07/14 Dietitian Teaching Relationship Specialty Start Date End Date Ifeoma Davis MD [address] [facility] [place] [address] PCP - General Internal Medicine 12/07/14 Dietitian Teaching Relationship Specialty Start Date End Date Ifeoma Davis MD [address] [facility] [place] [address] PCP - General Internal Medicine 12/07/14 Dietitian Teaching Relationship Specialty Start Date End Date Ifeoma Davis MD [address] [facility] [place] [address] PCP - General Internal Medicine 12/07/14 Dietitian Teaching Relationship Specialty Start Date End Date Ifeoma Davis MD [address] [facility] [place] [address] PCP - General Internal Medicine 12/07/14 Dietitian Teaching Relationship Specialty Start Date End Date Ifeoma Davis MD [address] [facility] [place] [address] PCP - General Internal Medicine 12/07/14 Dietitian Teaching Relationship Specialty Start Date End Date Ifeoma Davis MD [address] [facility] [place] [address] PCP - General Internal Medicine 12/07/14 Dietitian Teaching Relationship Specialty Start Date End Date Ifeoma Davis MD [address] [facility] [place] [address] PCP - General Internal Medicine 12/07/14 Dietitian Teaching Relationship Specialty Start Date End Date Ifeoma Davis MD [address] [facility] [place] [address] PCP - General Internal Medicine 12/07/14 Dietitian Teaching Relationship Specialty Start Date End Date Ifeoma Davis MD [address] [facility] [place] [address] PCP - General Internal Medicine 12/07/14 Dietitian Teaching Relationship Specialty Start Date End Date Ifeoma Davis MD [address] [facility] [place] [address] PCP - General Internal Medicine 12/07/14 Dietitian Teaching Relationship Specialty Start Date End Date Ifeoma Davis MD [address] [facility] [place] [address] PCP - General Internal Medicine 12/07/14 Team Status: Active Member Role Status Dates Dr. Ifeoma Davis MD Family Provider Active Dr. Ifeoma Davis MD Primary Care Provider Active Team Status: Inactive Member Role Status Dates Dr. Ifeoma Davis MD Primary Care Provider Active CAREY VALLE Attending Provider, Referring Provide r Active Dietitian Teaching Relationship Specialty Start Date End Date Ifeoma Davis MD [address] [facility] [place] [address] PCP - General Internal Medicine 12/07/14 Dietitian Teaching Relationship Specialty Start Date End Date Ifeoma Davis MD [address] [facility] [place] [address] PCP - General Internal Medicine 12/07/14 Dietitian Teaching Relationship Specialty Start Date End Date Ifeoma Davis MD [address] [facility] [place] [address] PCP - General Internal Medicine 12/07/14 Dietitian Teaching Relationship Specialty Start Date End Date Ifeoma Davis MD [address] [facility] [place] [address] PCP - General Internal Medicine 12/07/14 Dietitian Teaching Relationship Specialty Start Date End Date Ifeoma Davis MD [address] [facility] [place] [address] PCP - General Internal Medicine 12/07/14 Dietitian Teaching Relationship Specialty Start Date End Date Ifeoma Davis MD [address] [facility] [place] [address] PCP - General Internal Medicine 12/07/14 Dietitian Teaching Relationship Specialty Start Date End Date Ifeoma Davis MD [address] [facility] [place] [address] PCP - General Internal Medicine 12/07/14 Dietitian Teaching Relationship Specialty Start Date End Date Ifeoma Davis MD [address] [place] [address] PCP - General Internal Medicine 12/07/14 Dietitian Teaching Relationship Specialty Start Date End Date Ifeoma Davis MD [address] [facility] [place] [address] PCP - General Internal Medicine 12/07/14 Dietitian Teaching Relationship Specialty Start Date End Date Ifeoma Davis MD [address] [facility] [place] [address] PCP - General Internal Medicine 12/07/14 Dietitian Teaching Relationship Specialty Start Date End Date Ifeoma Davis MD [address] [place] [address] PCP - General Internal Medicine 12/07/14 Dietitian Teaching Relationship Specialty Start Date End Date Ifeoma Davis MD [address] [facility] [place] [address] PCP - General Internal Medicine 12/07/14 Dietitian Teaching Relationship Specialty Start Date End Date Ifeoma Davis MD [address] [place] [address] PCP - General Internal Medicine 12/07/14 Dietitian Teaching Relationship Specialty Start Date End Date Ifeoma Davis MD [address] [place] [address] PCP - General Internal Medicine 12/07/14 Team Status: Inactive Member Role Status Dates Dr. Ifeoma Davis MD Primary Care Provider, Referring Provider Active Dr. Phillip Pozo DO Attending Provider Active Team Status: Inactive Member Role Status Dates Dr. Ifeoma Davis MD Primary Care Provider Active Dr. Edgar Beltran MD Attending Provider Active Team Status: Inactive Member Role Status Dates Dr. Ifeoma Davis MD Primary Care Provider Active Dr. Phillip Pozo DO Attending Provider, Referring Provider Active Dietitian Teaching Relationship Specialty Start Date End Date Ifeoma Davis MD [address] [place] [address] PCP - General Internal Medicine 12/07/14 Dietitian Teaching Relationship Specialty Start Date End Date Ifeoma Davis MD [address] [place] [address] PCP - General Internal Medicine 12/07/14 Dietitian Teaching Relationship Specialty Start Date End Date Ifeoma Davis MD [address] [place] [address] PCP - General Internal Medicine 12/07/14 Dietitian Teaching Relationship Specialty Start Date End Date Ifeoma Davis MD [address] [place] [address] PCP - General Internal Medicine 12/07/14 Dietitian Teaching Relationship Specialty Start Date End Date Ifeoma Davis MD [address] [place] [address] PCP - General Internal Medicine 12/07/14 Dietitian Teaching Relationship Specialty Start Date End Date Ifeoma Davis MD [address] [facility] [place] [address] PCP - General Internal Medicine 12/07/14 Dietitian Teaching Relationship Specialty Start Date End Date Ifeoma Davis MD [address] [place] [address] PCP - General Internal Medicine 12/07/14 Dietitian Teaching Relationship Specialty Start Date End Date Ifeoma Davsi MD [address] [place] [address] PCP - General Internal Medicine 12/07/14 Dietitian Teaching Relationship Specialty Start Date End Date Ifeoma Davis MD [address] [place] [address] PCP - General Internal Medicine 12/07/14 Dietitian Teaching Relationship Specialty Start Date End Date Ifeoma Davis MD [address] [place] [address] PCP - General Internal Medicine 12/07/14 Dietitian Teaching Relationship Specialty Start Date End Date Ifeoma Davis MD [address] [place] [address] PCP - General Internal Medicine 12/07/14 Dietitian Teaching Relationship Specialty Start Date End Date Ifeoma Davis MD [address] [place] [address] PCP - General Internal Medicine 12/07/14 Dietitian Teaching Relationship Specialty Start Date End Date fIeoma Davis MD [address] [facility] [place] [address] PCP - General Internal Medicine 12/07/14 Dietitian Teaching Relationship Specialty Start Date End Date Ifeoma Davis MD [address] [place] [address] PCP - General Internal Medicine 12/07/14 Dietitian Teaching Relationship Specialty Start Date End Date Ifeoma Davis MD [address] [place] [address] PCP - General Internal Medicine 12/07/14 Dietitian Teaching Relationship Specialty Start Date End Date Ifeoma Davis MD [address] [place] [address] PCP - General Internal Medicine 12/07/14 Virginia Avalos PA-C [address] [place] [address] [phone] Surgical Garment Fitter Family Medicine 08/09/24 David Anna APRN.CNP [address] [place] [address] Surgical Garment Fitter Internal Medicine 08/09/24 Domitila Knapp PA-C [address] [place] [address] Surgical Garment Fitter Family Medicine 08/09/24 Dietitian Teaching Relationship Specialty Start Date End Date Ifeoma Davis MD [address] [place] [address] PCP - General Internal Medicine 12/07/14 Virginia Avalos PA-C [address] [place] [address] Surgical Garment Fitter Family Medicine 08/09/24 David Anna APRN.HYDROGENATION STILL OPERATOR [address] [place] [address] Surgical Garment Fitter Internal Medicine 08/09/24 Domitila Knapp PA-C [address] [place] [address] Surgical Garment Fitter Family Medicine 08/09/24 Dietitian Teaching Relationship Specialty Start Date End Date Ifeoma Davis MD [address] [place] [address] PCP - General Internal Medicine 12/07/14 Virginia Avalos PA-C [address] [place] [address] Surgical Garment Fitter Family Medicine 08/09/24 David Anna APRN.HYDROGENATION STILL OPERATOR [address] [place] [address] Surgical Garment Fitter Internal Medicine 08/09/24 Domitila Knapp PA-C [address] [place] [address] Surgical Garment Fitter Family Medicine 08/09/24 Dietitian Teaching Relationship Specialty Start Date End Date Ifeoma Davis MD [address] [place] [address] PCP - General Internal Medicine 12/07/14 Virginia Avalos PA-C [address] [place] [address] Surgical Garment Fitter Family Medicine 08/09/24 David Anna APRN.HYDROGENATION STILL OPERATOR [address] [place] [address] Surgical Garment Fitter Internal Medicine 08/09/24 Domitila Knapp PA-C [address] [place] [address] Surgical Garment Fitter Family Medicine 08/09/24 Dietitian Teaching Relationship Specialty Start Date End Date Ifeoma Davis MD [address] [place] [address] PCP - General Internal Medicine 12/07/14 Virginia Avalos PA-C [address] [place] [address] Surgical Garment Fitter Family Medicine 08/09/24 David Anna APRN.HYDROGENATION STILL OPERATOR [address] [place] [address] Surgical Garment Fitter Internal Medicine 08/09/24 Domitila Knapp PA-C [address] [place] [address] Surgical Garment Fitter Family Medicine 08/09/24 Dietitian Teaching Relationship Specialty Start Date End Date Ifeoma Davis MD [address] [place] [address] PCP - General Internal Medicine 12/07/14 Virginia Avalos PA-C [address] [place] [address] Surgical Garment Fitter Family Medicine 08/09/24 David Anna APRN.HYDROGENATION STILL OPERATOR [address] [place] [address] Surgical Garment Fitter Internal Medicine 08/09/24 Domitila Knapp PA-C [address] [place] [address] Surgical Garment Fitter Family Medicine 08/09/24 Dietitian Teaching Relationship Specialty Start Date End Date Ifeoma Davis MD [address] [place] [address] PCP - General Internal Medicine 12/07/14 Virginia Avalos PA-C [address] [place] [address] Surgical Garment Fitter Family Medicine 08/09/24 David Anna APRN.HYDROGENATION STILL OPERATOR [address] [place] [address] Surgical Garment Fitter Internal Medicine 08/09/24 Domitila Knapp PA-C [address] [place] [address] Surgical Garment [facility] Family [facility] 08/09/24 Dietitian Teaching Relationship Specialty Start Date End Date Ifeoma Davis MD [address] [place] [address] PCP - General Internal Medicine 12/07/14 Virginia Avalos PA-C [address] [place] [address] Surgical [facility] Family Medicine 08/09/24 David Anna APRN.HYDROGENATION STILL OPERATOR [address] [place] [address] Surgical Garment Fitter Internal Medicine 08/09/24 Domitila Knapp PA-C [address] [facility] [place] [address] Surgical Garment [facility] Family Medicine 08/09/24 Dietitian Teaching Relationship Specialty Start Date End Date Ifeoma Davis MD [address] [facility] [place] [address] PCP - General Internal Medicine 12/07/14 Virginia Avalos PA-C [address] [place], [place] [id number] [phone] Surgical [facility]ment [facility] Family Medicine 08/09/24 David Anna APRN.HYDROGENATION STILL OPERATOR [address] [place] [address] Surgical Garment Fitter Internal Medicine 08/09/24 Domitila Knapp PA-C [address] [place] [address] Surgical [facility]ment [facility] Family Medicine 08/09/24 Dietitian Teaching Relationship Specialty Start Date End Date Ifeoma Davis MD [address] [place] [address] PCP - General Internal Medicine 12/07/14 Virginia Avalos PA-C [address] [place], [place] [id number] Surgical [facility]ment [facility] Family Medicine 08/09/24 David Anna APRN.HYDROGENATION STILL OPERATOR [address] [place] [address] Surgical Garment Fitter Internal Medicine 08/09/24 Domitila Knapp PA-C [address] [place] [address] Surgical Garment [facility]itter Family Medicine 08/09/24 Dietitian Teaching Relationship Specialty Start Date End Date Ifeoma Davis MD [address] [place] [address] PCP - General Internal Medicine 12/07/14 Virginia Avalos PA-C [address] [place] [address] Surgical [facility]ment [facility] Family Medicine 08/09/24 David Anna APRN.HYDROGENATION STILL OPERATOR [address] [place] [address] Surgical Garment Fitter Internal Medicine 08/09/24 Domitila Knapp PA-C [address] [place] [address] Surgical Garment Fitter Family Medicine 08/09/24 Dietitian Teaching Relationship Specialty Start Date End Date Ifeoma Davis MD [address] [place] [address] PCP - General Internal Medicine 12/07/14 Virginia Avalos PA-C [address] [place] [address] Surgical [facility] Family Medicine 08/09/24 David Anna APRN.HYDROGENATION STILL OPERATOR [address] [place] [address] Surgical Garment Fitter Internal Medicine 08/09/24 Domitila Knapp PA-C [address] [place] [address] Surgical Garment Fitter Family Medicine 08/09/24 Dietitian Teaching Relationship Specialty Start Date End Date Ifeoma Davis MD [address] [place], [place] [id number] PCP - General Internal Medicine 12/07/14 Virginia Avalos PA-C [address] [place] [address] [facility] 08/09/24 David Anna, MURTAZA.HYDROGENATION STILL OPERATOR [address] [place], [place] [id number] [facility] Internal Medicine 08/09/24 Domitila Knapp PA-C [address] [place], [place] 344441 Replaced By [facility] 08/09/24 Team Status: Inactive Member Role Status Dates Dr. Ifeoma Davis MD Primary Care Provider Active Start: November 24, 2024 End: November 24, 2024 Dr. Edgar Beltran MD Attending Provider Active S tart: November 24, 2024 End: November 24, 2024 Team Status: Inactive Member Role Status Dates Dr. Ifeoma Davis MD Primary Care Provider Active Start: November 24, 2024 End: November 24, 2024 TRACK EQUIPMENT OPERATOR. Allie Prakash Attending Provider Active Star t: November 24, 2024 End: November 24, 2024 TRACK EQUIPMENT OPERATOR. Allie Prakash Referring Provider Active Star t: November 24, 2024 End: November 24, 2024 Dietitian Teaching Relationship Specialty Start Date End Date Ifeoma Davis MD [address] [place], [place] [address] PCP - General Internal Medicine 12/07/14 David Anna, MED PEDS.HYDROGENATION STILL OPERATOR [address] [place], [place] [id number] Surgical Garment Fitter Internal Medicine 08/09/24 Dietitian Teaching Relationship Specialty Start Date End Date Ifeoma Davis MD [address] [place] [address] PCP - General Internal Medicine 12/07/14 David Anna APRN.HYDROGENATION STILL OPERATOR [address] [place], [place] 143370 [phone] Surgical Garment Fitter Internal Medicine 08/09/24 Dietitian Teaching Relationship Specialty Start Date End Date Ifeoma Davis MD [address] [place] [address] PCP - General Internal Medicine 12/07/14 David Anna APRN.HYDROGENATION STILL OPERATOR [address] [place] [address] Surgical Garment Fitter Internal Medicine 08/09/24 Dietitian Teaching Relationship Specialty Start Date End Date Ifeoma Davis MD [address] [place] [address] PCP - General Internal Medicine 12/07/14 Virginia Avalos PA-C [address] [place] [address] Surgical [facility]ment [facility]itter Family Medicine 08/09/24 11/22/24 David Anna, MURTAZA.HYDROGENATION STILL OPERATOR [address] [place] [address] Surgical Garment Fitter Internal Medicine 08/09/24 Domitila Knapp PA-C [address] [place] [address] Surgical Garment Fitter Family Medicine 08/09/24 11/22/24 Dietitian Teaching Relationship Specialty Start Date End Date Ifeoma Davis MD [address] [facility] [place] [address] PCP - General Internal Medicine 12/07/14 David Anna APRN.HYDROGENATION STILL OPERATOR [address] [place] [address] Surgical Garment Fitter Internal Medicine 08/09/24 Dietitian Teaching Relationship Specialty Start Date End Date Ifeoma Davis MD [address] [place] [address] PCP - General Internal Medicine 12/07/14 David Anna APRN.HYDROGENATION STILL OPERATOR [address] [place] [address] Surgical Garment Fitter Internal Medicine 08/09/24 Dietitian Teaching Relationship Specialty Start Date End Date Ifeoma Davis MD [address] [place] [address] PCP - General Internal Medicine 12/07/14 David Anna APRN.HYDROGENATION STILL OPERATOR [address] [place] [address] Surgical Garment Fitter Internal Medicine 08/09/24 Dietitian Teaching Relationship Specialty Start Date End Date Ifeoma Davis MD [address] [place] [address] PCP - General Internal Medicine 12/07/14 Virginia Avalos PA-C [address] [place] [address] Surgical [facility]ment [facility] Family Medicine 08/09/24 11/22/24 David Anna APRN.HYDROGENATION STILL OPERATOR [address] [place], [place] [address]23[address] Surgical Garment Fitter Internal Medicine 08/09/24 Domitila Knapp PA-C [address] [place], [place] [address] Surgical Garment Fitter Family Medicine 08/09/24 11/22/24 Dietitian Teaching Relationship Specialty Start Date End Date Ifeoma Davis MD [address] [place], [place] [address] PCP - General Internal Medicine 12/07/14 David Anna APRN.HYDROGENATION STILL OPERATOR [address] [place], [place] [address] Surgical Garment Fitter Internal Medicine 08/09/24 Team Status: Active Member Role/Relationship Status Dates Dr. Ifeoma Davis MD Family Provider Active Dr. Ifeoma Davis MD Primary Care Provider Active Team Status: Inactive Member Role/Relationship Status Dates Dr. Ifeoma Davis MD Primary Care Provider Active Start: November 24, 2024 End: November 24, 2024 Dr. Edgar Beltran MD Attending Provider Active S tart: November 24, 2024 End: November 24, 2024 Team Status: Inactive Member Role/Relationship Status Dates Dr. Ifeoma Davis MD Primary Care Provider Active Start: November 24, 2024 End: November 24, 2024 TRACK EQUIPMENT OPERATORJermaine Prakash Attending Provider Active Star t: November 24, 2024 End: November 24, 2024 TRACK EQUIPMENT OPERATORJermaine Prakash Referring Provider Active Star t: November 24, 2024 End: November 24, 2024 Team Status: Inactive Member Role/Relationship Status Dates Dr. Ifeoma Davis MD Primary Care Provider Active Start: December 09, 2024 End: December 09, 2024 Dr. Ifeoma Davis MD Referring Provider Active Start: December 09, 2024 End: December 09, 2024 Dr. Phillip Pozo DO Attending Provider Active Start: December 09, 2024 End: December 09, 2024 Team Status: Active Member Role/Relationship Status Dates Dr. Ifeoma Davis MD Primary Care Provider Active Start: March 10, 2025 Dr. Ifeoma Davis MD Referring Provider Active Start: March 10, 2025 Dr. Phillip Pozo DO Attending Provider Active Start: March 10, 2025 Team Status: Inactive Member Role/Relationship Status Dates Dr. Ifeoma Davis MD Primary Care Provider Active Start: March 10, 2025 End: March 10, 2025 Dr. Edgar Beltran MD Attending Provider Active S tart: March 10, 2025 End: March 10, 2025 Team Status: Inactive Member Role/Relationship Status Dates Dr. Ifeoma Davis MD Primary Care Provider Active Start: March 10, 2025 End: March 10, 2025 Dr. Ifeoma Davis MD Referring Provider Active Start: March 10, 2025 End: March 10, 2025 Dr. Phillip Pozo DO Attending Provider Active Start: March 10, 2025 End: March 10, 2025 Dietitian Teaching Relationship Specialty Start Date End Date Ifeoma Davis MD [address] [facility] [place] [address] PCP - General Internal Medicine 12/07/14 David Anna APRN.HYDROGENATION STILL OPERATOR [address] [place] [address] Surgical Garment Fitter Internal Medicine 08/09/24 Dietitian Teaching Relationship Specialty Start Date End Date Ifeoma Davis MD [address] [facility] [place] [address] PCP - General Internal Medicine 12/07/14 David Anna APRN.HYDROGENATION STILL OPERATOR [address] [place] [address] Surgical Garment Fitter Internal Medicine 08/09/24 Dietitian Teaching Relationship Specialty Start Date End Date Ifeoma Davis MD [address] [place] [address] PCP - General Internal Medicine 12/07/14 David Anna APRN.HYDROGENATION STILL OPERATOR [address] [place] [address] Surgical Garment Fitter Internal Medicine 08/09/24 Dietitian Teaching Relationship Specialty Start Date End Date Ifeoma Davis MD [address] [place] [address] PCP - General Internal Medicine 12/07/14 David Anna APRN.HYDROGENATION STILL OPERATOR [address] [place] [address] Surgical Garment Fitter Internal Medicine 08/09/24 Dietitian Teaching Relationship Specialty Start Date End Date Ifeoma Davis MD [address] [place] [address] PCP - General Internal Medicine 12/07/14 David Anna APRN.HYDROGENATION STILL OPERATOR [address] [place] [address] Surgical Garment Fitter Internal Medicine 08/09/24 Dietitian Teaching Relationship Specialty Start Date End Date Ifeoma Davis MD [address] [place] [address] PCP - General Internal Medicine 12/07/14 David Anna APRN.HYDROGENATION STILL OPERATOR [address] [place] [address] Surgical Garment Fitter Internal Medicine 08/09/24 Dietitian Teaching Relationship Specialty Start Date End Date Ifeoma Davis MD [address] [place] [address] PCP - General Internal Medicine 12/07/14 David Anna APRN.HYDROGENATION STILL OPERATOR [address] [place], [place] [address]84[address] Surgical Garment Fitter Internal Medicine 08/09/24 Dietitian Teaching Relationship Specialty Start Date End Date Ifeoma Davis MD [address] [place], [place] [address]6771 PCP - General Internal Medicine 12/07/14 Virginia Avalos PA-C [address] [place], [place] [id number] [phone] Surgical Garment Fitter Family [facility] 08/09/24 11/22/24 David Anna APRN.HYDROGENATION STILL OPERATOR [address] [place] [address] Surgical Garment Fitter Internal Medicine 08/09/24 Domitila Knapp PA-C [address] [place] [address] Surgical Garment Fitter Family [facility] 08/09/24 11/22/24 Dietitian Teaching Relationship Specialty Start Date End Date Ifeoma Davis MD [address] [place] [address] PCP - General Internal Medicine 12/07/14 Virginia Avalos PAMelissa [address] [place], [place] [id number] [phone] Surgical Garment Fitter Family Medicine 08/09/24 11/22/24 David Anna APRN.HYDROGENATION STILL OPERATOR [address] [place] [address] Surgical Garment Fitter Internal Medicine 08/09/24 Domitila Knapp PA-C [address] [place] [address] Surgical Garment Fitter Family Medicine 08/09/24 11/22/24 Team Status: Inactive Member Role/Relationship Status Dates Dr. Ifeoma Davis MD Primary Care Provider Active Start: March 10, 2025 End: March 10, 2025 Dr. Ifeoma Davis MD Referring Provider Active Start: March 10, 2025 End: March 10, 2025 Dr. Phillip Pozo DO Attending Provider Active Start: March 10, 2025 End: March 10, 2025 Team Status: Inactive Member Role/Relationship Status Dates Dr. Ifeoam Davis MD Primary Care Provider Active Start: March 10, 2025 End: March 10, 2025 Dr. Edgar Beltran MD Attending Provider Active S tart: March 10, 2025 End: March 10, 2025 Team Status: Active Member Role/Relationship Status Dates Dr. Ifeoma Davis MD Primary Care Provider Active Start: April 16, 2025 Dr. Ifeoma Davis MD Referring Provider Active Start: April 16, 2025 Dr. Michael Cameron MD Attending Provider Active Start: April 16, 2025 Team Status: Inactive Member Role/Relationship Status Dates Dr. Ifeoma Davis MD Primary Care Provider Active Start: April 16, 2025 End: April 16, 2025 Dr. Edgar Beltran MD Attending Provider Active S tart: April 16, 2025 End: April 16, 2025 Team Status: Inactive Member Role/Relationship Status Dates Dr. Ifeoma Davis MD Primary Care Provider Active Start: April 16, 2025 End: April 16, 2025 Dr. Ifeoma Davis MD Referring Provider Active Start: April 16, 2025 End: April 16, 2025 Dr. Michael Cameron MD Attending Provider Active Start: April 16, 2025 End: April 16, 2025 Dietitian Teaching Relationship Specialty Start Date End Date Ifeoma Davis MD [address] [place] [address] PCP - General Internal Medicine 12/07/14 David Anna, MED PEDS.HYDROGENATION STILL OPERATOR [address] [place], [place] [address] Surgical Garment Fitter Internal Medicine 08/09/24 Dietitian Teaching Relationship Specialty Start Date End Date Ifeoma Davis MD [address] [place], [place] [address] PCP - General Internal Medicine 12/07/14 David Anna, MED PEDS.HYDROGENATION STILL OPERATOR [address] [place], [place] [address] Surgical Garment Fitter Internal Medicine 08/09/24 Dietitian Teaching Relationship Specialty Start Date End Date Ifeoma Davis MD [address] [place], [place] 197231 PCP - General Internal Medicine 12/07/14 David Anna, MED PEDS.HYDROGENATION STILL OPERATOR [address] [place], [place] [address] [facility] Internal Medicine 08/09/24 Scheduled Active and Recently Administ ered Medications (unrecognized section and content) Medication Order 06/23/2022 06/24/2022 06/25/2022 cyclopentolate 1%-tropicamide 1%-PHENYLephrine 2.5% ophthalmic drops (COMPLETED) 1 Drop, RIGHT EYE, EVERY 3 MINUTES, 3 doses, First dose on Sat06/25/22 at 0930, Last dose on Sat06/25/22 at 0940, For Topical Ophthalmic Use Only, Preprocedure 0934 (Given - Provid er: Allie Cardoso RN)0937 (Given - Provider: Allie Cardoso, BRITTANY)0940 (Given - Provider: Allie Cardoso RN) sodium chloride 0.9 % (flush) 2-10 mL (BD POSIFLUSH) (CANCELED) 2-10 mL, INTRAVENOUS, EVERY 12 HOURS, First dose on Sat06/25/22 at 0930, Until Discontinued, Preprocedure 0934 (Given - Provid er: Allie Cardoso RN) PRN Medication Order 06/23/2022 06/24/2022 06/25/2022 balanced salts (BSS) X (OR/PROCEDURE) PRN, Starting on Sat06/25/22 at 1019, Until Tu06/26/22 at 0303, Intraprocedure 1019 (Given - Provid er: Jonathon Eugene MD) carbachol 0.01 % injection (CARBASTAT) X (OR/PROCEDURE) PRN, Starting on Sat06/25/22 at 1030, Until Sat06/26/22 at 0303, Intraprocedure 1030 (Given - Provid er: Jonathon Eugene MD)1033 (Given - Provider: Jonathon Eugene MD)1038 (Given - Provider: Jonathon Eugene MD)1040 (Given - Provider: Jonathon Eugene MD) lidocaine (PF) 3.5 % (AKTEN) X (OR/PROCEDURE) PRN, Starting on Sat06/25/22 at 1003, Until Sat06/26/22 at 0303, Intraprocedure 1003 (Given - Provid er: Mallika Holloway RN) lidocaine 1%-PHENYLephrine 1.5% intraocular injection X (OR/PROCEDURE) PRN, Starting on Sat06/25/22 at 1013, Until Sat06/26/22 at 0303, Intraprocedure 1013 (Given - Provid er: Jonathon Eugene MD) lidocaine HCl (PF) 20 mg/mL (2 %) injection X (OR/PROCEDURE) PRN, Starting on Sat06/25/22 at 1004, Until Sat06/26/22 at 0303, Intraprocedure 1004 (Given - Provid er: Jonathon Eugene MD) moxifloxacin intraocular injection 5 mg/mL (PF) X (OR/PROCEDURE) PRN, Starting on Sat06/25/22 at 1125, Until Sat06/26/22 at 0303, Intraprocedure 1125 (Given - Provid er: Jonathon Eugene MD) fyfierwt-xtuhajhee-whodyfnupyznz 3.5 mg/g-10,000 unit/g-0.1 % (POLYDEX) X (OR/PROCEDURE) PRN, Starting on Sat06/25/22 at 1128, Until Sat06/26/22 at 0303, Intraprocedure 1128 (Given - Provid er: Mallika Holloway RN) Povidone-Iodine 5 % ophth soln (BETADINE) X (OR/PROCEDURE) PRN, Starting on Sat06/25/22 at 1006, Until Sat06/26/22 at 0303, Intraprocedure 1006 (Given - Provid er: Mallika Holloway RN - Comment: One drop in eye at 1002) sod hyaluronate-sod chondroitin-sod hyaluronate intraocular kit (DUOVISC) X (OR/PROCEDURE) PRN, Starting on Sat06/25/22 at 1013, Until Sat06/26/22 at 0303, Intraprocedure 1013 (Given - Provid er: Jonathon Eugene MD) sodium hyaluronate 10 mg/mL injection (PROVISC,HEALON PRO) X (OR/PROCEDURE) PRN, Starting on Sat06/25/22 at 1045, Until Tu06/26/22 at 0303, Intraprocedure 1045 (Given - Provid er: Jonathon Eugene MD) tetracaine 0.5 % (OPTICAINE) X (OR/PROCEDURE) PRN, Starting on Sat06/25/22 at 1002, Until Tu06/26/22 at 0303, Intraprocedure 1002 (Given - Provid er: Mallika Holloway RN)1046 (Given - Provider: Mallika Holloway RN) INFORMATION SOURCE (unrecogn ized section and content) DATE CREATED AUTHOR 11/01/2022 [facility] DATE CREATED AUTHOR AUTHOR'S ORGANIZ ATION 11/09/2022 [facility] DATE CREATED AUTHOR AUTHOR'S ORGANIZ ATION 01/08/2025 [facility] DATE CREATED AUTHOR AUTHOR'S ORGANIZ ATION 05/18/2025 [facility] DATE CREATED AUTHOR AUTHOR'S ORGANIZ ATION 05/23/2025 [facility] Goals (unrecognized section and content) Goals may be documented in a n alternate sectionGoals may be documented in an alternate sectionGoals may be documented in an alternate sectionGoals may be documented in an alternate sectionGoals may be documented in an alternate sectionGoals may be documented in an alternate sectionGoals may be documented in an alternate sectionGoals may be documented in an alternate section FOR RECORDS PERTAINING TO PATIENTS WHO ARE OR HAVE BEEN ENROLLED IN A CHEMICAL DEPENDENCY/SUBSTANCEABUSE PROGRAM, SOME INFORMATION MAY BE OMITTED. This clinical summary was aggregated from multiple sources. Caution should be exercised in using it in the provision of clinical care. This summary normalizes information from multiple sources, and as a consequence, information in this document may materially change the coding, format and clinical context of patient data. In addition, data may be omitted in some cases. CLINICAL DECISIONS SHOULD BE BASED ON THE PRIMARY CLINICAL RECORDS. [facility]. provides no warranty or guarantee of the accuracy or completeness of information in this document.
[2025-05-27 19:22] VITALS: BP 116/69; PULSE 72; RESP 16; TEMP 36.6; O2SAT 100
== END 2025-05-27 19:22 | disposition home or self-care (01) ==
PROVIDERS: Emergency Provider Emergency Medicine; PCP Internal Medicine; Visit Provider Emergency Medicine
DX: S06.0X0A Concussion without loss of consciousness, initial encounter (principal); G47.30 Sleep apnea, unspecified; H54.8 Legal blindness, as defined in USA; W22.8XXA Striking against or struck by other objects, initial encounter; I10 Essential (primary) hypertension
CPT/HCPCS: 99282

== ENCOUNTER 2025-06-11 13:00 | Outpatient (CLI) | payer MEDICARE, MEDICAID, SELFPAY ==
[2025-06-17 14:51] LABS: Hematocrit 38.6 % (37-47); Hemoglobin 12.3 g/dL (12.0-15.0); Immature Granulocytes Count 0.030 X10^3/uL (0.0-0.0); Mean Corp Hgb Conc 31.9 g/dL (32-36); Mean Corpuscular Volume 92.8 fL (81-99); Mean Platelet Vol. 10.5 fl (6.2-12.0); NRBC Flagged by Analyzer 0 % (0-5); Platelet Count 332 K/mm3 (150-450); RBC Distribution Width CV 13.2 % (11.6-14.6); RBC Distribution Width SD 45.3 fl (35.1-43.9); Red Blood Count 4.16 M/mm3 (4.2-5.4); White Blood Count 6.9 K/mm3 (4.4-11.0)
[2025-06-17 15:04] LABS: Prothrombin Time (Protime)PT. 12.5 SECONDS (11.7-14.9)
[2025-06-17 15:05] LABS: Partial Thromboplast Time 24.0 Seconds (24.1-36.2)
[2025-06-17 15:22] LABS: Anion Gap 11 (5-15); BUN 14 mg/dL (4-19); BUN/Creat Ratio 16.4 RATIO (10-20); Calcium,Total 9.5 mg/dL (7.6-11.0); Carbon Dioxide 27.7 mmol/L (21.0-32.0); Chloride 101 mmol/L (98-108); Glucose 89 mg/dL (70-99); Magnesium 2.1 mg/dL (1.5-2.2); Potassium 4.3 mmol/L (3.3-5.1)
--- NOTE | 2025-06-17 15:28 | PAT.ANE_ITS ---
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 When Was Last Pacemaker Check QUESTION #4 FULL TEXT: You/Your Family Experience fever (hyperthermia) with Anesthesia Last Oral Intake Last Oral intake: Last Oral Intake NPO since Meds taken in AM with sips of water? Meds patient instructed to take am of surgery PONV PONV - tractor trailer operator: PONV - tractor trailer operator Female Yes 06/11/25 13:38 HX of Motion Sickness No 06/11/25 13:38 HX of N/V After Surgery No 06/11/25 13:38 Non-Smoker Yes 06/11/25 13:38 Duration of Surgery greater Yes 06/11/25 13:38 than 60 minutes Number of Risk Factors 3 06/11/25 13:38 PONV Score Moderate Risk 06/11/25 13:38 Height & Weight Height & Weight: Anesthesia: Height & Weight Height 5 ft 1 in 06/03/25 15:26 Respiratory Assessment Respiratory Assessment - tractor trailer operator: Respiratory Tract Infection Hx - tractor trailer operator Hx Respiratory Tract Infection No 06/11/25 13:38 STOP Sleep Apnea STOP Sleep Apnea - tractor trailer operator: STOP Sleep Apnea - tractor trailer operator Hx Hypertension Yes 06/11/25 13:38 Hx Sleep Apnea Yes 06/11/25 13:38 CPAP No 06/11/25 13:38 BIPAP No 06/11/25 13:38 Do you snore loudly (louder than talking or can be heard Do you often feel tired/ fatigued/ sleepy during daytime? Has anyone observed you stop breathing during sleep? STOP Results Positive 06/11/25 13:38 QUESTION #5 FULL TEXT : Do you snore loudly (louder than talking or can be heard through closed doors)? 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: Tobacco Use History - tractor trailer operator Tobacco Use Smoking Status Never smoker 06/11/25 13:38 Hx Tobacco Use No 06/11/25 13:38 Years Smoking Packs Smoked per Day Smoking Cessation Date was within the last 15 years Hx Smoking Cessation Date Hx Smoking Cessation Counseling Hematologic Medial History Hematologic Hx - tractor trailer operator: Hematologic Medical Hx - assistant film editor Hx of Blood Transfusion No 06/11/25 13:38 Hx of Transfusion in last 3 No 06/11/25 13:38 Months Date of Last Transfusion (if within last 3 months) Ever experience any problems No 06/11/25 13:38 with transfusion(s)? Specify any problems Hx of Preganancy in last 3 N/A 06/11/25 13:38 Months Nurse Filling Out Transfusion NBUCHER 06/11/25 13:38 & Questions: Date: 06/11/25 06/11/25 13:38 Time: 13:40 06/11/25 13:38 Patient unable to answer at this time (ie. confused, unrespo /Reproduction History /Reproductive History - tractor trailer operator: /Reproductive Hx- tractor trailer operator Hx Now No 06/11/25 13:38 Gestational Age (in weeks): EDC: Hx Hx Para Hx Section SAB No 06/11/25 13:38 [facility] Medical History (Updated 06/11/25 @ 13:57 by Aimee Ha) Wears glasses Depression Anxiety High cholesterol Ambulates with cane GERD (gastroesophageal reflux disease) Non-smoker Hip arthritis Degenerative scoliosis Lumbar radiculopathy Spondylolisthesis History of trigger finger Fibromyalgia Restless legs Hot flashes Legal blindness of both eyes as defined in [place] PXE (pseudoxanthoma elasticum) Hypertension Home Medications ?Medication ?Instructions ?Recorded ?Last Taken ?Type atorvastatin 40 mg tablet 40 mg PO QHS HLD 01/17/17 Un known History trazodone 50 mg tablet 50 mg PO QHS PRN insomnia Unknown History meloxicam 15 mg tablet 15 mg PO DAILY PAIN 11/20/21 Unknown History omeprazole 20 mg capsule,delayed 20 mg PO DAILY GERD 0 11/20/21 Unknown History release amlodipine 2.5 mg tablet 2.5 mg PO QDAY HTN 12/09/24 Unknown History aspirin 81 mg tablet,delayed 81 mg PO QDAY HEART HEALT H 12/09/24 Unknown History release (Adult Low Dose Aspirin) bupropion HCl 100 mg tablet,12 hr 100 mg PO QAM DEPRES IRAIS 12/09/24 Unknown History sustained-release escitalopram oxalate 10 mg tablet 10 mg PO QDAY ANXIET Y 12/09/24 Unknown History estradiol 0.1 mg/24 hr semiweekly 1 patch transdermal QWEEK HORMONE 12/09/24 Unknown History transdermal patch ([place]) REPLACEMENT lisinopril 10 1 tab PO QDAY HTN 12/09/24 U nknown History mg-hydrochlorothiazide 12.5 mg tablet magnesium 200 mg tablet 200 mg PO QDAY SUPPLEMENT Unknown History zolpidem 5 mg tablet 5 mg PO QHS PRN sleep Unknown History fluticasone propionate 50 2 spray intranasal QDAY KRISTI RGIES 03/10/25 Unknown History mcg/actuation nasal spray,suspension oxycodone-acetaminophen 5 mg-325 0.5 - 1 tab PO TID FL N pain 03/10/25 Unknown History mg tablet cyclobenzaprine 10 mg tablet 10 mg PO HS MUSCLE SPASM 06/04/25 Unknown History Lactobacillus 25 billion 1 cap PO DAILY SUPPLMENT 06/26 Unknown History cell-Bifido 25 billion svnv-TPS-cxreo capsule cevimeline 30 mg capsule 1 cap PO DAILY DRY MOUTH 06/26 Unknown History cholecalciferol (vitamin D3) 50 50 mcg PO DAILY SUPPLE MENT 06/11/25 Unknown History mcg (2,000 unit) capsule (Vitamin D3) progesterone micronized 100 mg 100 mg PO QHS HORMONE R EPLACMENT 06/11/25 Unknown History capsule Allergy/AdvReac Type Severity Reaction Status Date / Time hydrocodone bitartrate (From AdvReac Itching Verified 06/11/25 13:20 Vicodin) nitrofurantoin (From AdvReac Other Verified 06/11/25 13:20 Macrobid) nitrofurantoin AdvReac Other Verified 06/11/25 13:20 macrocrystalline (From Macrobid) propoxyphene (From AdvReac Other Verified 06/11/25 13:20 Darvocet-N) tramadol HCl (From Ultram) AdvReac Other Verified 06/11/25 13:20 Family History Father Lung cancer Mother COPD (chronic obstructive pulmonary disease) CVA (cerebral vascular accident) Son Myocardial infarction Other Breast cancer Ovarian cancer Surgical History (Updated 06/11/25 @ 13:57 by Aimee Ha) History of eye surgery Status post glaucoma surgery S/P right knee arthroscopy S/P Social History household members: none housing: house Smoking Status: Never smoker alcohol intake: current alcohol intake frequency: holidays/special occasions only substance use type: does not use Audit: Pertinent Findings Pertinent Findings EKG Perinent findings: EKG 11/29/2018. Normal sinus rhythm Recommendation Anesthesia Recommendation Anesthesia recommendation: OPTIMIZED for anesthesia
== END 2025-06-11 19:00 | disposition home or self-care (01) ==
LOC: SDC 07-14 15:29
PROVIDERS: PCP Internal Medicine; Referring Provider Orthopaedic Surgery; Visit Provider Orthopaedic Surgery
DX: Z01.818 Encounter for other preprocedural examination (principal); Z01.810 Encounter for preprocedural cardiovascular examination
CPT/HCPCS: 36415; 80048; 82985; 83036; 83735; 85025; 85610; 85730; 86850; 86900; 86901; 87081; 93005

== ENCOUNTER 2025-06-17 17:54 | Emergency (ER) | payer MEDICARE, MEDICAID, SELFPAY ==
[2025-06-17 17:55] VITALS: BP 136/79; PULSE 80; RESP 16; TEMP 36.8; O2SAT 98; BMI 25.7
--- NOTE | 2025-06-17 18:12 | CT_ITS ---
PROCEDURE: CT BRAIN/HEAD WITHOUT CONTRAST; CTA HEAD AND NECK WITH CONTRAST 06/17/2025 REASON FOR EXAM: HEADACHE, RIGHT FACE PAIN TECHNIQUE: Procedure Code: CTBR; CTCTA.HDNCK Modality: CT Procedure: BRAIN/HEAD WITHOUT CONTRAST; CTA HEAD AND NECK W/ CONTRAST Coronal and Sagittal reconstruction series were provided. 3D post processing was performed. Contrast: 100 cc of Isovue 370 intravenous contrast was administered. One or more dose reduction techniques were used (e.g., Automated exposure control, adjustment of the mA and/or kV according to patient size, use of iterative reconstruction technique. RADIATION DOSE SUMMARY: DLP: 1405.44 mGycm COMPARISON: None available. FINDINGS: CTA HEAD: Patent major intracranial arterial vasculature. No large vessel occlusion, flow- limiting stenosis, saccular aneurysm, or vascular malformation identified. Relatively hypoplastic caliber of the right JAM A1 segment compared to the left. Dural venous sinuses appear patent. CTA NECK: Conventional aortic arch branching. The left vertebral artery is almost entirely occluded from its origin, which reconstitutes distally at the V4 segment although with diminutive caliber, which has the appearance of either dissection versus intramural hematoma. The dominant right vertebral artery is patent, normal in course and caliber without aneurysm or dissection. No stenosis of the basilar artery. Bilateral cervical carotid arteries are patent. No aneurysm or dissection. Mixed calcified and noncalcified atheromatous plaque at the carotid bifurcations extending into the proximal ICAs, with mild no greater than 50% stenosis bilaterally of the proximal ICAs. Atherosclerotic plaque along the carotid siphons, with irregular moderate stenosis of the supraclinoid right ICA, and no significant stenosis on the left. NONCONTRAST CT HEAD: No acute intracranial hemorrhage, extra-axial collection, mass effect or evidence of acute infarct. Ventricles and subarachnoid spaces are normal in size. Absent [place] ocular lenses. Intact skull base and calvarium. Well-aerated paranasal sinuses and mastoid air cells. CT/CTA Head AND Neck W/ Contrast IMPRESSION: 1. No acute intracranial hemorrhage, mass-effect or evidence of acute infarct. 2. 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 Diminutive reconstitution at the distal V4 segment. Widely patent contralateral dominant right vertebral artery, and basilar artery. 3. Patent intracranial and bilateral cervical carotid arteries. No aneurysm. 4. Atherosclerotic plaque at the carotid bifurcation with mild stenosis of the bilateral proximal ICAs, and irregular moderate stenosis of the distal right ICA cavernous/supraclinoid segment. Findings communicated with provider Patti Piña 06/17/2025 at 6 p.m. WEAVER HAND LOOM. Reading Location: [id number]
--- NOTE | 2025-06-17 18:12 | CT_ITS ---
PROCEDURE: CT BRAIN/HEAD WITHOUT CONTRAST; CTA HEAD AND NECK WITH CONTRAST 06/17/2025 REASON FOR EXAM: HEADACHE, RIGHT FACE PAIN TECHNIQUE: Procedure Code: CTBR; CTCTA.HDNCK Modality: CT Procedure: BRAIN/HEAD WITHOUT CONTRAST; CTA HEAD AND NECK W/ CONTRAST Coronal and Sagittal reconstruction series were provided. 3D post processing was performed. Contrast: 100 cc of Isovue 370 intravenous contrast was administered. One or more dose reduction techniques were used (e.g., Automated exposure control, adjustment of the mA and/or kV according to patient size, use of iterative reconstruction technique. RADIATION DOSE SUMMARY: DLP: 1405.44 mGycm COMPARISON: None available. FINDINGS: CTA HEAD: Patent major intracranial arterial vasculature. No large vessel occlusion, flow- limiting stenosis, saccular aneurysm, or vascular malformation identified. Relatively hypoplastic caliber of the right JAM A1 segment compared to the left. Dural venous sinuses appear patent. CTA NECK: Conventional aortic arch branching. The left vertebral artery is almost entirely occluded from its origin, which reconstitutes distally at the V4 segment although with diminutive caliber, which has the appearance of either dissection versus intramural hematoma. The dominant right vertebral artery is patent, normal in course and caliber without aneurysm or dissection. No stenosis of the basilar artery. Bilateral cervical carotid arteries are patent. No aneurysm or dissection. Mixed calcified and noncalcified atheromatous plaque at the carotid bifurcations extending into the proximal ICAs, with mild no greater than 50% stenosis bilaterally of the proximal ICAs. Atherosclerotic plaque along the carotid siphons, with irregular moderate stenosis of the supraclinoid right ICA, and no significant stenosis on the left. NONCONTRAST CT HEAD: No acute intracranial hemorrhage, extra-axial collection, mass effect or evidence of acute infarct. Ventricles and subarachnoid spaces are normal in size. Absent [place] ocular lenses. Intact skull base and calvarium. Well-aerated paranasal sinuses and mastoid air cells. CT/Brain/Head without Contrast IMPRESSION: 1. No acute intracranial hemorrhage, mass-effect or evidence of acute infarct. 2. 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 Diminutive reconstitution at the distal V4 segment. Widely patent contralateral dominant right vertebral artery, and basilar artery. 3. Patent intracranial and bilateral cervical carotid arteries. No aneurysm. 4. Atherosclerotic plaque at the carotid bifurcation with mild stenosis of the bilateral proximal ICAs, and irregular moderate stenosis of the distal right ICA cavernous/supraclinoid segment. Findings communicated with provider Patti Piña 06/17/2025 at 6 p.m. 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 Reading Location: [id number]
--- NOTE | 2025-06-17 18:13 | EX.ED.VIS.HA ---
HPI History of Present Illness Chief Complaint: Headache Detail of Chief Complaint: Headache Informant: patient Narrative Narrative: Patient presents to the emergency department with complaint of headache that started at 3 PM. She has multiple intermittent episodes of sharp stabbing pain from the right side of her head that go down to the right side of her face. These are short-lived. She does have some pressure in the right side of her head. She spoke with her primary care physician who advised her to come in. Patient has history of pseudoxanthoma elasticum. She has been under increased stress as she was supposed to have a hip replacement next week and has gone through cardiology for clearance as well as GI. She is supposed to follow-up with vascular for clearance but they feel that she will likely be too high risk to have the surgery. [facility] Medical History (Updated 06/17/25 @ 19:[address] Patti Piña, ) Wears glasses Depression Anxiety High cholesterol Ambulates with cane GERD (gastroesophageal reflux disease) Non-smoker Hip arthritis Degenerative scoliosis Lumbar radiculopathy Spondylolisthesis History of trigger finger Fibromyalgia Restless legs Hot flashes Legal blindness of both eyes as defined in [place] PXE (pseudoxanthoma elasticum) Hypertension Home Medications ?Medication ?Instructions ?Recorded ?Last Taken ?Type atorvastatin 40 mg tablet 40 mg PO QHS HLD 01/17/17 Unknown History meloxicam 15 mg tablet 15 mg PO DAILY PAIN 11/20/21 Unknown History omeprazole 20 mg capsule,delayed 20 mg PO DAILY GERD 11/20/21 Unknown History release amlodipine 2.5 mg tablet 2.5 mg PO QDAY HTN 12/09/24 Unknown History aspirin 81 mg tablet,delayed 81 mg PO QDAY HEART HEALTH 12/09/24 Unknown History release (Adult Low Dose Aspirin) escitalopram oxalate 10 mg tablet 10 mg PO QDAY ANXIETY 12/09/24 Unknown History estradiol 0.1 mg/24 hr semiweekly 1 patch transdermal QWEEK HORMONE 12/09/24 Unknown History transdermal patch (Darling) REPLACEMENT lisinopril 10 1 tab PO QDAY HTN 12/09/24 Unknown History mg-hydrochlorothiazide 12.5 mg tablet magnesium 200 mg tablet 200 mg PO QDAY SUPPLEMENT 12/09/24 Unknown History zolpidem 5 mg tablet 5 mg PO QHS PRN sleep 12/09/24 Unknown History fluticasone propionate 50 2 spray intranasal QDAY ALLERGIES 03/10/25 Unknown History mcg/actuation nasal spray,suspension oxycodone-acetaminophen 5 mg-325 0.5 - 1 tab PO TID PRN pain 03/10/25 Unknown History mg tablet cyclobenzaprine 10 mg tablet 10 mg PO HS MUSCLE SPASM 06/04/25 Unknown History Lactobacillus 25 billion 1 cap PO DAILY SUPPLMENT 06/11/25 Unknown History cell-Bifido 25 billion [id number] capsule cevimeline 30 mg capsule 1 cap PO DAILY DRY MOUTH 06/11/25 Unknown History cholecalciferol (vitamin D3) 50 50 mcg PO DAILY SUPPLEMENT 06/11/25 Unknown History mcg (2,000 unit) capsule (Vitamin D3) progesterone micronized 100 mg 100 mg PO QHS HORMONE REPLACMENT 06/11/25 Unknown History capsule bupropion HCl 150 mg 24 hr tablet, 150 mg PO DAILY 06/17/25 Unknown History extended release clopidogrel 75 mg tablet (Plavix) 75 mg PO DAILY #30 tabs 06/17/25 Unknown Rx gabapentin 100 mg capsule 100 mg PO DAILY 06/17/25 Unknown History potassium chloride 10 mEq 10 meq PO DAILY 06/17/25 Unknown History tablet,extended release prednisolone acetate 1 % eye 1 drp LEFT EYE 4X/DAY 06/17/25 Unknown History drops,suspension timolol maleate 0.5 % eye drops 1 drp LEFT EYE BID 06/17/25 Unknown History trazodone 100 mg tablet 100 mg PO QHS 06/17/25 Unknown History triamcinolone acetonide 0.025 % applic topical BID 06/17/25 Unknown History topical cream Allergy/AdvReac Type Severity Reaction Status Date / Time hydrocodone bitartrate (From AdvReac Itching Verified 06/17/25 17:58 Vicodin) nitrofurantoin (From AdvReac Other Verified 06/17/25 17:58 Macrobid) nitrofurantoin AdvReac Other Verified 06/17/25 17:58 macrocrystalline (From Macrobid) propoxyphene (From AdvReac Other Verified 06/17/25 17:58 Darvocet-N) tramadol HCl (From Ultram) AdvReac Other Verified 06/17/25 17:58 Family History Father Lung cancer Mother COPD (chronic obstructive pulmonary disease) CVA (cerebral vascular accident) Son Myocardial infarction Other Breast cancer Ovarian cancer Surgical History History of eye surgery Status post glaucoma surgery S/P right knee arthroscopy S/P Social History household members: none housing: house Smoking Status: Never smoker alcohol intake: current alcohol intake frequency: holidays/special occasions only substance use type: does not use ROS ROS ED Review of Systems ROS Unobtainable: other Constitutional Constitutional ED: Reports lethargy; Denies chills, fever(s), sweats or weight loss Eyes Eyes: Denies blurry vision, change in vision or diplopia ENT ENT ED: Denies rhinorrhea or sore throat Cardiovascular Cardiovascular: Denies chest pain, orthopnea or racing heartbeat Respiratory/Chest Respiratory/Chest: Denies cough, dyspnea, dyspnea on exertion, orthopnea or sputum Gastrointestinal Gastrointestinal: Denies abdominal pain, diarrhea, nausea or vomiting Genitourinary Genitourinary ED: Denies dysuria, hematuria or urinary frequency Musculoskeletal Musculoskeletal: Denies arthralgias, back pain, myalgias or neck pain Integumentary Denies abscess, Abrasions or rash Neurologic Neurologic: Reports headache(s); Denies weakness Psychiatric Psychiatric: Denies anxiety, depression or suicidal thoughts Endocrine Endocrinology: Denies polydipsia, polyphagia or polyuria Hematologic/Lymphatic Hematologic/Lymphatic: Denies easy bleeding, easy bruising or lymphadenopathy Allergic/Immunologic Allergic/Immunologic ED: Denies mouth swelling, tongue swelling or urticaria EXAM Physical Exam Const Vital Signs: 06/17/25 17:55 Temperature 98.2 F Temperature Source Oral Pulse Rate 80 Respiratory Rate 16 Blood Pressure 136/79 H Blood Pressure Mean 98 Pulse Ox 98 Oxygen Delivery Method Room Air Positive well nourished and well developed General Appearance ED: well developed and NAD HEENT Reports TM's clear and moist mucous membranes normocephalic and atraumatic; Negative for trauma or tenderness Tympanic Membrane ED: Yes TM's clear Eyes PERRL and EOMs intact bilaterally General Eye ED: Negative for pale conjunctiva or scleral icterus Neck no lymphadenopathy, supple and no JVD General: Negative for tenderness Chest Wall inspection of chest normal and palpation of chest normal Chest: Negative for tenderness Resp normal respiratory effort and clear to auscultation bilaterally Effort and Inspection: Negative for respiratory distress or pain with movement Auscultation: Negative for rhonchi, wheezes or diminished lung sounds Cardio regular rate, regular rhythm, S1 normal heart sound, S2 normal heart sound and no murmurs Peripheral Pulses: pulses 2+ throughout GI normal to inspection, nondistended, normoactive bowel sounds, soft to palpation, non-tender, non-distended and no masses Back/Spine no CVA tenderness and no thoracic nor lumbar tenderness Extremity normal to inspection General Extremety ED: Negative for edema General Extremity: Negative for edema Neuro oriented x3, CN's II-XII intact bilaterally, no sensory deficits noted and gait normal Neuro Narrative: Finger-nose and heel quinonez testing within normal limits, negative Romberg, negative pronator drift, fundi benign Sensorium / Orientation: awake, alert, oriented to person, oriented to place and oriented to time Motor Exam: strength 5/5 throughout and strength abnormal Psych mental status grossly normal Skin no rashes or lesions noted and no wounds MDM MDM MDM Narrative Medical decision making narrative: Patient presents with right sided intermittent head pain. Clinically looks well. Neurologically intact. I obtained a CT scan of the brain without contrast that showed no acute intracranial hemorrhage or mass effect. CTA of the head and neck obtained showed near complete occlusion of the left vertebral artery from its origin with appearance of long segment dissection versus intramural hematoma. There was diminutive rectal reconstitution at the distal V4 segment. Widely patent contralateral dominant right artery and basilar artery. Patient also with some atherosclerotic plaque at the carotid bifurcation with mild stenosis of the bilateral proximal ICAs and irregular moderate stenosis of the distal right ICA cavernous super glenoid segment.. Discussed results with patient. Spoke with vascular surgery on-call Dr. Hinojosa. 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 He recommended therapy with dual antiplatelet therapy with aspirin and Plavix. Patient already takes 81 mg of aspirin daily and I will write her for Plavix. She also takes a statin currently. He has to see her in the office next week. She also has an appointment apparently she believes with a vascular surgeon in [facility] next Saturday which is in 5 days. I did give her 4 mg of morphine IV. Clinical suspicion low for an acute process with the vertebral artery and I do not feel this is what is causing her symptoms. Pain being intermittent and distribution involving the right side of the head and face may be more indicative of a nerve process. I have low suspicion for temporal arteritis and the temporal artery does not seem tender or firm. Lab Data Attestation: I reviewed the patient's lab results. Radiography Diagnostic Testing: Clinical Impression(s) from Imaging Studies Brain CT 06/17/25 18:12 IMPRESSION: 1. No acute intracranial hemorrhage, mass-effect or evidence of acute infarct. 2. 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 Diminutive reconstitution at the distal V4 segment. Widely patent contralateral dominant right vertebral artery, and basilar artery. 3. Patent intracranial and bilateral cervical carotid arteries. No aneurysm. 4. Atherosclerotic plaque at the carotid bifurcation with mild stenosis of the bilateral proximal ICAs, and irregular moderate stenosis of the distal right ICA cavernous/supraclinoid segment. Findings communicated with provider Patti Piña 06/17/2025 at 6 p.m. [employer]. Reading Location: [facility] Head/Neck CTA 06/17/25 18:12 IMPRESSION: 1. No acute intracranial hemorrhage, mass-effect or evidence of acute infarct. 2. 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 Diminutive reconstitution at the distal V4 segment. Widely patent contralateral dominant right vertebral artery, and basilar artery. 3. Patent intracranial and bilateral cervical carotid arteries. No aneurysm. 4. Atherosclerotic plaque at the carotid bifurcation with mild stenosis of the bilateral proximal ICAs, and irregular moderate stenosis of the distal right ICA cavernous/supraclinoid segment. Findings communicated with provider Patti Piña 06/17/2025 at 6 p.m. [employer]. Reading Location: [facility] Discharge Plan Triage Chief Complaint: Headache ED Provider: Patti Piña Dx/Rx/DC Orders Clinical Impression: Headache Instructions: ED Headache Unspecified Prescriptions: New clopidogrel [Plavix] 75 mg tablet 75 mg PO DAILY Qty: 30 0RF No Action cyclobenzaprine 10 mg tablet 10 mg PO HS aspirin [Adult Low Dose Aspirin] 81 mg tablet,delayed release (DR/EC) 81 mg PO QDAY lisinopril-hydrochlorothiazide 10-12.5 mg tablet 1 tab PO QDAY zolpidem 5 mg tablet 5 mg PO QHS PRN (Reason: sleep) amlodipine 2.5 mg tablet 2.5 mg PO QDAY estradiol [Darling] 0.1 mg/24 hr patch semiweekly 1 patch transdermal QWEEK escitalopram oxalate 10 mg tablet 10 mg PO QDAY magnesium 200 mg tablet 200 mg PO QDAY oxycodone-acetaminophen 5-325 mg tablet 0.5 - 1 tab PO TID PRN (Reason: pain) fluticasone propionate 50 mcg/actuation spray,suspension 2 spray intranasal QDAY atorvastatin 40 MG tablet 40 mg PO QHS meloxicam 15 mg tablet 15 mg PO DAILY omeprazole 20 mg capsule,delayed release(DR/EC) 20 mg PO DAILY potassium chloride 10 mEq tablet extended release 10 meq PO DAILY trazodone 100 mg tablet 100 mg PO QHS gabapentin 100 mg capsule 100 mg PO DAILY bupropion HCl 150 mg tablet extended release 24 hr 150 mg PO DAILY prednisolone acetate 1 % drops,suspension 1 drp LEFT EYE 4X/DAY triamcinolone acetonide 0.025 % cream topical BID timolol maleate 0.5 % drops 1 drp LEFT EYE BID progesterone micronized 100 mg capsule 100 mg PO QHS cholecalciferol (vitamin D3) [Vitamin D3] 50 mcg (2,000 unit) capsule 50 mcg PO DAILY cevimeline 30 mg capsule 1 cap PO DAILY Lacto no.[id number]-[id number]-larch 25B cell-25B cell-50 mg capsule 1 cap PO DAILY Primary Care Provider: Ifeoma Mustafa Referrals: Ifeoma Mustafa MD [Primary Care Provider, Internal Medicine] Quincy Hinojosa MD [Med Staff - Active Staff, Vascular Surgery] - 5-7 Days Print Language: Palauan Disposition Disposition: Home, Self Care
--- OUTSIDE RECORDS SUMMARY | 2025-06-17 18:52 | XMS RPT_ITS | CCD ---
Author Organization [facility] CliniSymt Care Team Providers Care Marketing Researcher Name Role Phone Ifeoma Davis MD Primary Care Provider STALKER, WOLF Referring Unavailable SUSAN, IFEOMA Primary Care Unavailable STALKER, WOLF Referring Unavailable IFEOMA DAVIS Primary Care Unavailable STALKER, WOLF Referring Unavailable IFEOMA DAVIS Primary Care Unavailable Ifeoma Davis MD Primary Care Provider JONATHON JOHNSON Admitting Unavailable JONATHON JOHNSON Attending Unavailable IFEOMA DAVIS Primary Care Unavailable MASSIMO HICKS Admitting Unavailable MASSIMO HICKS Attending Unavailable IFEOMA DAVIS Primary Care Unavailable Dr. Ifeoma Davis Primary Care Provider Dr. Ifeoma Davis Referring Provider Dr. Phillip Pozo Attending Provider Dr. Edgar Beltran Attending Provider Ifeoma Davis MD Primary Care Provider Virginia Avalos PA-C Unavailable Older DINNER COOK.TALENT MANAGER, David Unavailable Domitila Knapp PA-C Unavailable Dr. Ifeoma Davis MD Primary Care Provider Dr. Edgar Beltran MD Attending Provider NP. Allie Prakash Attending Provider NP. Allie Prakash Referring Provider Virginia Avalos PA-C Unavailable Domitila Knapp PA-C Unavailable KIMBERLEY BYRD Referring Unavailable GANTA, IFEOMA Primary Care Unavailable Susan CORREIA, Dr. Dia Referring Provider Nohelia BENNETT, Dr. Fisher Attending Provider Susan CORREIA, Dr. Dia Primary Care Provider Susan CORREIA, Dr. Dia Referring Provider Dr. Phillip Pozo DO Attending Provider Ruby CORREIA, Dr. Hernández Attending Provider Rakesh CORREIA, Dr. Rodriguez Attending Provider Susan CORREIA, Dr. Dia Primary Care Physician Nohelia BENNETT, Dr. Fisher Attending Physician Ruby CORREIA, Dr. Hernández Attending Physician Rakesh CORREIA, Dr. Rodriguez Attending Physician [phone] Rakesh CORREIA, Dr. Rodriguez Referring Provider Papi CORREIA, Dr. Zambrano Emergency Department Physician Papi CORREIA, Dr. aZmbrano Attending Physician GANTA, IFEOMA Primary Care Unavailable AISLINN MCMULLEN Attending Unavailable GANTA, IFEOMA Primary Care Unavailable ADRIANA TALBERT Attending Unavailabl e ADRIANA TALBERT Admitting Unavailabl e GANTA, IFEOMA Primary Care Unavailable EMILY CHAPARRO Referring Unavailable GANTA, IFEOMA Attending Unavailable GANTA, IFEOMA Primary Care Unavailable GANTA, IFEOMA Primary Care Unavailable GANTA, IFEOMA Primary Care Unavailable GANTA, IFEOMA Primary Care Unavailable GANTA, IFEOMA Primary Care Unavailable GANTA, IFEOMA Attending Unavailable GANTA, IFEOMA Primary Care Unavailable HELDER, DESTINEY Referring Unavailable GANTA, IFEOMA Primary Care Unavailable CYNTHIA RAMOS Attending Unavailable GANTA, IFEOMA Primary Care Unavailable SELF Referring Unavailable GANTA, IFEOMA Attending Unavailable GANTA, IFEOMA Primary Care Unavailable GANTA, IFEOMA Referring Unavailable GANTA, IFEOMA Attending Unavailable GANTA, IFEOMA Primary Care Unavailable SELF Referring Unavailable GANTA, IFEOMA Attending Unavailable GANTA, IFEOMA Primary Care Unavailable GANTA, IFEOMA Primary Care Unavailable ZABRINA, CALLI M Attending Unavailable GANTA, IFEOMA Attending Unavailable GANTA, IFEOMA Primary Care Unavailable GANTA, IFEOMA Primary Care Unavailable CYNTHIA RAMOS Attending Unavailable SELF Referring Unavailable GANTA, IFEOMA Primary Care Unavailable JANET MARTINEZ Attending Unavailable ANKUR CURTIS Referring Unavaila ble GANTA, IFEOMA Primary Care Unavailable GANTA, IFEOMA Primary Care Unavailable GANTA, IFEOMA Referring Unavailable GANTA, IFEOMA Primary Care Unavailable LIZZIE DAVID Attending Unavailable GANTA, IFEOMA Primary Care Unavailable OLDER, DAVID Referring Unavailable GANTA, IFEOMA Primary Care Unavailable DESTINEY PENDLETON Attending Unavailable GANTA, IFEOMA Primary Care Unavailable MICHELLE BECERRIL Attending Unavailable GANTA, IFEOMA Attending Unavailable GANTA, IFEOMA Primary Care Unavailable GANTA, IFEOMA Primary Care Unavailable ADRIANA TALBERT Attending Unavailabl e Ganta, Ifeoma Referring Unavailable Cameron, Michael Attending Unavailable Ganta, Ifeoma Primary Care Unavailable Ganta, Ifeoma Primary Care Unavailable Ganta, Ifeoma Referring Unavailable Cameron, Michael Attending Unavailable Ganta, Ifeoma Primary Care Unavailable Ruby, [place] Attending Unavailable Ganta, Ifeoma Primary Care Unavailable Ruby, Edgar Attending Unavailable Ruby, [place] Attending Unavailable Ganta, Ifeoma Primary Care Unavailable Ruby, Edgar Attending Unavailable Ganta, Ifeoma Primary Care Unavailable Ganta, Ifeoma Primary Care Unavailable Borpatyso, Phillip Attending Unavailable Maria De JesussoPhillip Admitting Unavailable Borruso, Phillip Referring Unavailable Ganta, Ifeoma Primary Care Unavailable Turpin, Juan Manuel Attending Unavailable Ganta, Ifeoma Primary Care Unavailable Cameron, Michael Referring Unavailable Cameron, Michael Attending Unavailable Ganta, Ifeoma Referring Unavailable Ganta, Ifeoma Attending Unavailable Ganta, Ifeoma Primary Care Unavailable Olinda, Allie Referring Unavailable [place], Allie Attending Unavailable Ganta, Ifeoma Primary Care Unavailable Ganta, Ifeoma Primary Care Unavailable Borruso, Phillip Attending Unavailable Borruso, Phillip Referring Unavailable Ganta, Ifeoma Referring Unavailable Ganta, Ifeoma Primary Care Unavailable Borruso, Phillip Attending Unavailable Ganta, Ifeoma Referring Unavailable Borruso, Phillip Attending Unavailable Ganta, Ifeoma Primary Care Unavailable Ruby, Edgar Attending Unavailable Ganta, Ifeoma Primary Care Unavailable Ganta, Ifeoma Primary Care Unavailable Ganta, Ifeoma Referring Unavailable Phillip Pozo Attending Unavailable Allergies Allergy Classification Reported Allergen(s) Allergy Type Date of Onset Reaction(s) Facility Acetaminophen / HYDROcodone (1 source) Acetaminophen / HYDROcodone Drug Allergy 04-28-20 12 Itching [facility] Nitrofurantoin (1 source) Nitrofurantoin Drug Allergy 03-05-20 Other: See Comments [facility] Opioid Agonists (4 sources) HYDROcodone Drug Allergy 03-12-20 06 Itching, Other: See Comments, Vomiting [facility] (20 sources) Acetaminophen / HYDROcodone; Translations: [HYDROCODONE-ACETA MINOPHEN] Drug Allergy 04-28-20 12 Itching [facility] Work Phone: (20 sources) HYDROcodone; Translations: [HYDROCODONE BITARTRATE] Drug Allergy 10-19-19 18 Itching [facility] (20 sources) Morphinan opioid; Translations: [OPIOIDS - MORPHINE ANALOGUES] Drug Allergy 03-05-20 20 Itching [facility] (20 sources) Nitrofurantoin; Translations: [NITROFURANTOIN] Drug Allergy 03-05-20 Other: See Comments [facility] (20 sources) Propoxyphene; Translations: [PROPOXYPHENE] Drug Allergy 03-05-20 Other: See Comments [facility] (20 sources) traMADol; Translations: [TRAMADOL] Drug Allergy 03-05-20 Other: See Comments [facility] (20 sources) traMADol; Translations: [TRAMADOL HCL] Drug Allergy 03-12-20 06 Vomiting [facility] (20 sources) Propoxyphene N-Acetaminophen; Translations: [PROPOXYPHENE N-ACETAMINOPHEN] Drug Intolerance 04-28-20 12 Mental Status Change [facility] Work Phone: (14 sources) nitrofurantoin macrocrystalline; Translations: [nitrofurantoin macrocrystalline] Propensity to adverse reactions 11-21-19 22 Other [facility] (1 source) HYDROcodone Drug Allergy 06-11-20 25 [facility] (1 source) Nitrofurantoin Drug Allergy 06-11-20 25 [facility] (1 source) Propoxyphene Drug Allergy 06-11-20 25 [facility] (1 source) traMADol Drug Allergy 06-11-20 [facility] Medications Current Medications Medication Drug Class(es) Dates Sig (Normalized) Sig (Original) acetaminophen 325 mg / oxyCODONE hydrochloride 5 mg oral tablet (20 sources) Opioid Agonist Start: 03-10-2025 Start: 02-24-2025 End: 03-24-2025 oxyCODONE-acetaminophen (PER COCET) 5-325 mg tablet Take 1 tablet by mouth as directed. 02/24/2025 03/24/2025 Discontinued Start: 10-08-2024 End: 12-29-2024 oxyCODONE-acetaminophen (PER COCET) 5-325 mg tablet Take by mouth. 10/08/2024 12/29/2024 Discontinued amLODIPine 2.5 mg oral tablet (20 sources) Dihydropyridine Calcium Channel Agustin Start: 12-09-2024 take 1 tablet by mouth once daily Start: 09-29-2024 End: 11-03-2024 take 1 tablet by mouth once daily amLODIPine (NORVASC) 2.5 mg tablet Take 1 tablet by mouth once daily. 30 tablet 11 11/03/2024 Active amoxicillin 875 mg / clavulanate 125 mg oral tablet (4 sources) Penicillin-class Antibacterial Start: 06-28-2022 End: 07-05-2022 take 1 tablet by mouth twice daily amoxicillin-clavulanic acid (AUGMENTIN) 875-125 mg per tablet Take 1 tablet by mouth twice daily for 7 days. 14 tablet 0 06/28/2022 07/05/2022 Active Comment on above: Take 1 tablet by mouth twice daily for 7 days. aspirin 81 mg delayed release oral tablet (20 sources) Platelet Aggregation Inhibitor, Nonsteroidal Anti-inflammatory Drug Start: 01-17-2017 End: 12-09-2024 take 1 tablet by mouth once daily Aspirin 81 MG tablet,chewable Discontinued 81 mg PO DAILY January 17, 2017 12:00am December 09, 2024 1:35pm Start: 11-14-2015 Comment on above: Take 1 tablet by porfirio once daily. atorvastatin 40 mg oral tablet (20 sources) HMG-CoA Reductase Inhibitor Start: 01-18-20 End: 12-24-19 take 1 tablet by mouth at bedtime Comment on above: Take 1 tablet by porfirio th once daily. azithromycin 250 mg oral tablet (9 sources) Macrolide Antimicrobial Start: 04-11-20 25 azithromycin (ZITHROMAX Z-JEANINE) 250 mg tablet 2 [...] oral capsule (20 sources) Non-narcotic Antitussive Start: 5 End: 5 take 1 capsule by mouth every eight [...] Comment on above: Take 1 capsule [facility] three times daily as needed for cough. [...] take 1 tablet by mouth once daily in the morning cephalexin 500 mg oral capsule (6 sources) [...] Comment on above: Take 1 capsule by [facility] twice daily for 7 days. cevimeline 30 [...] ORAL) Take by mouth. 0 Active cyclobenzaprine hydrochlorid e 10 mg oral tablet (20 sources) Muscle Relaxant Start: 06-04-2025 take 1 tablet by mouth at bedtime Start: 11-22-2020 End: 09-24-2024 take 1 tablet by mouth every twelve hours as needed for headache and headache cyclobenzaprine (FLEXERIL) 10 mg tablet Indications: 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 injury Take 1 tablet by mouth two times a day as needed. 180 tablet 3 01/01/2024 Active Start: 10-29-2017 End: 06-04-2025 take 1 tablet by mouth every eight hours Cyclobenzaprine 10 mg tablet Discontinued 10 mg PO Q8H October 29, 2017 1:00am June 04, 2025 11:08am Comment on above: Take 1 tablet by porfirio th twice daily as needed. docosahexaenoic acid/epa (FISH [...] above: Take 1 tablet by porfirio th two times a day for 10 days. erythromycin 0.005 mg/mg ophthalmic ointment (20 sources) Macrolide, Macrolide Antimicrobial Start: End: erythromycin (ROMYCIN) 5 mg/gram (0.5 %) [...] tablet (20 sources) Serotonin Reuptake Inhibitor Start: 10-12-2024 End: 12-29-2024 take 1 tablet by mouth once daily 84 hr estradiol 0.18520 mg/hr transdermal system (20 sources) Estrogen Start: 12-09-2024 Start: 09-15-2024 estradiol (MERCY VONNIE-DOT) 0.1 mg/24 [...] nasal spray (20 sources) Corticosteroid Start: 03-10-2025 Start: 09-08-2024 take 2 spray(s) by out once daily fluticasone (FLONASE) 50 mcg/actuation nasal [...] / vitamin b12 0.5 mg oral tablet (10 sources) Vitamin B12 Start: 12-09-2024 gabapentin 100 mg oral capsule (20 sources) Anti-epileptic Agent Start: 05-11-2022 End: 06-28-2025 take 1 capsule by mouth at bedtime Start: 09-18-2021 End: 03-18-2022 take 1 capsule by mouth once daily at bedtime gabapentin (NEURONTIN) 100 mg capsule Take 1 capsule by mouth daily at bedtime for 181 days. 60 capsule 2 09/18/2021 12/04/2021 Discontinued Comment on above: Take 1 capsule by [facility] daily at bedtime for 181 days. 12 [...] Diuretic, Angiotensin Converting Enzyme Inhibitor Start: 12-10-19 Start: 07-25-2022 End: 03-31-2024 take 10-12.5 mg [...] provided with radiology test) (1 source) Start: 022 End: inject 1 dose intravenously once iv [...] mg PO daily December 09, 2024 12:00am Complies with drug therapy Start: 12-09-2024 take 1 tablet by porfirio th once daily Start: 12-09-2024 take 1 tablet by porfirio th once daily Magnesium 200 mg tablet Active 200 mg PO daily December 09, 2024 12:00am MAGNESIUM ORAL T shoshaan by mouth once daily. Active meloxicam 15 mg oral tablet (20 sources) Nonsteroidal Anti-inflammatory Drug Start: 11-20-2021 Start: 06-19-2021 End: 12-29-2024 take 1 tablet by mouth once daily meloxicam (MOBIC) 15 mg tablet Indications: Trigger finger, unspecified finger, unspecified laterality Take 1 tablet by mouth once daily. 90 tablet 1 12/29/2024 Active Comment on above: Take 1 tablet by porfirio th once daily. methylPREDNISolone (1 source) Corticosteroid Start: 04-28-20 End: 05-04-20 methylPREDNISolone (MEDROL, JEANINE,) 4 mg Dose-Pack Indications: Poison boo As instructed per package 21 tablet 04/28/2025 05/04/2025 Active nystatin 100 unt/mg topical powder (3 sources) Polyene Antifungal Start: 04-22-20 End: 05-06-20 nystatin (MYCOSTATIN) powder Apply 1 application to affected area two times a day for 14 days. 60 g 04/22/2025 05/06/2025 Active Kv-7-Gpc-Epa-Fish Oil-Vit D3 720 mg- 25 mcg capsule (10 sources) Start: 12-10-19 Wa-1-Bpv-Epa-Fish Oil-Vit D3 720 mg- 25 mcg capsule Active NMA PO December 09, 2024 12:00am Complies with drug therapy Start: 12-09-2024 Start: 12-09-2024 Nw-9-Wvv-Epa-F elvia Oil-Vit D3 720 mg- 25 mcg capsule Active NMA PO December 09, 2024 12:00am omeprazole 20 mg delayed rel ease oral capsule (20 sources) Proton Pump Inhibitor Start: 11-20-2021 Start: 07-31-2021 End: 06-29-2024 take 1 capsule by mouth once daily omeprazole (PRILOSEC) 20 mg capsule Indications: Gastroesophageal reflux disease with esophagitis, unspecified whether hemorrhage Take 1 capsule by mouth once daily. 90 capsule 3 06/30/2024 Active Comment on above: Take 1 capsule by [facility] once daily. prednisoLONE acetate 10 mg/ml ophthalmic suspension (20 sources) Corticosteroid Start: 04-02-2025 prednisoLONE acetate (PRED FORTE) 1 % ophthalmic [...] on above: Take 2 tablets by mo [facility] once daily for 5 days. Take 4 [...] proparacaine 0.5 % 1 Drop (A LCAINE) [place] (2 sources) Start: 06-04-2025 take 1 capsule by mouth twice daily SAW PALMETTO ORAL (20 sources) SAW PALMETTO ORA L Take by mouth once daily. Active traZODone hydrochloride 100 mg oral tablet (20 sources) Serotonin Reuptake Inhibitor Start: 03-31-2025 End: 09-27-2025 take 1 tablet by mouth once daily [...] tablet by mouth at bedtime as needed Comment on above: Take 1 tablet by [...] tablet by mouth at bedtime as needed Completed/Discontinued Medications Medication Drug Class(es) Dates Sig (Normalized) Sig (Original) acetaminophen 300 mg / codeine phosphate 30 mg oral tablet (13 sources) Opioid Agonist Start: 10-19-2017 End: 10-29-2017 Acetaminophen-Codei ne 1 TABLET tablet Discontinued 1 - 2 {tbl} PO EVERY 6 HOURS as needed for Pain 12 October 19, 2017 1:00am October 29, 2017 2:15pm Start: 10-19-2017 End: 10-29-2017 take 1 tablet by mouth every six hours Acetaminophen-Codeine Discontinued 1 - 2 TABLET PO EVERY 6 HOURS October 19, 2017 1:00am October 29, 2017 2:15pm bacitracin 0.5 unt/mg / polymyxin b 10 unt/mg ophthalmic ointment (20 sources) Polymyxin-class Antibacterial Start: 02-28-2022 End: 08-16-2022 bacitracin-polymyxin b (POLYSPORIN) ophthalmic ointment Use 1 application in the left eye three times daily. 3.5 g 2 02/28/2022 08/16/2022 Discontinued (Course of therapy completed) Comment on above: Use 1 application in the left eye three times daily. bimatoprost 0.1 mg/ml ophthalmic solution (2 sources) Prostaglandin Analog Start: 08-02-2020 End: 12-04-2021 take 1 drop(s) into the eye(s) once daily at bedtime bimatoprost (LUMIGAN) 0.01 % drop ophthalmic drops Use 1 Drop in both eyes daily at bedtime. 3 Bottle 3 08/02/2020 12/04/2021 Discontinued Comment on above: Use 1 Drop in both eyes daily at bedtime . Collagenase powd (20 sources) End: 12-10-2022 Collagenase powd Collagenase powd CPAP/BIPAP/OTHER (14 sources) Start: 12-17-2024 End: 03-24-2025 CPAP/BIPAP/OTHER Indications : DAYSI (obstructive sleep apnea) APAP 5-18 cmH2O DME [facility] 1 each 12/17/2024 03/24/2025 Discontinued Start: 12-17-2024 End: 05-03-2052 CPAP/BIPAP/OTHER Indications : DAYSI (obstructive sleep apnea) APAP 5-18 cmH2O DME [facility] 1 each 12/17/2024 05/03/2052 Active cyclopentolate hydrochloride 10 mg/ml ophthalmic solution (2 sources) Start: 09-26-2021 End: 04-04-2022 take 1 drop(s) into the eye(s) once [...] extended release oral tablet (20 sources) Uncompetitive R-fvfllk-Y-asparta te Receptor Antagonist, Sigma-1 Agonist Start: 08-30-2023 End: 12-29-2024 take 1 tablet by mouth twice daily dextromethorphan-gu aiFENesin (MUCINEX DM) 30-600 mg per tablet Take 1 tablet by mouth two times a day. 20 tablet 08/30/2023 12/29/2024 Discontinued Comment on above: Take 1 tablet by porfirio th two times a day. diclofenac sodium 1 [...] 14 capsule 04/11/2024 12/29/2024 Discontinued Estrogens, Conjugated (FDC) / medroxyPROGESTERone (20 sources) Progestin, Estrogen Start: [...] / norethindrone acetate 1 mg oral tablet (13 sources) Estrogen Start: 10-19-2017 End: 12-09-2024 Norethindrone [...] tablet by mouth once daily. 30 tablet 09/09/2023 10/07/2024 Discontinued (Course of therapy completed) Comment on above: Take 1 tablet by porfirio once daily. meclizine hydrochloride 25 mg oral tablet (13 sources) Antiemetic Start: 11-21-19 22 End: 11-06-19 24 take 1 tablet by mouth three times [...] % 1 Drop (AK-DILATE, BENEDICT-SYNEPHRINE) polymyxin b 17092 unt/ml / trimethoprim 1 mg/ml ophthalmic solution [...] times daily. Begin 2 days BEFORE surgery potassium chloride 10 meq extended release oral tablet (20 sources) Start: 11-21-19 End: 12-30-19 take 1 tablet by mouth once daily Potassium Chloride 10 mEq tablet extended release Discontinued 10 meq PO daily December 09, 2024 12:00am March 10, 2025 2:39pm progesterone 100 mg oral capsule (20 sources) Progesterone Start: 09-15-19 End: 09-15-19 take 1 capsule by mouth once daily at bedtime progesterone micronized (PROMETRIUM) 100 mg capsule Take 1 capsule by mouth daily at bedtime. 90 capsule 3 09/15/2024 03/24/2025 Discontinued 12 hr timolol 5 mg/ml ophthalmic solution (16 sources) beta-Adrenergic Agustin Start: 03-23-20 End: 03-25-20 [...] eye and adnexa, not elsewhere classified] Onset: 03-25-2025 03-23-2025 Episodic Conditions associated with dizziness or vertigo (20 sources) Benign paroxysmal positional vertigo; Translations: [Benign paroxysmal vertigo, unspecified ear] Onset: 04-15-2017 04-15-2017 Episodic Diseases of mouth; excluding dental (4 sources) Xerostomia; Translations: [Dry mouth, unspecified] 10-07-2024 Episodic Disorders of lipid metabolism (20 sources) Mixed hyperlipidemia; Translations: [Mixed hyperlipidemia] Onset: 04-15-2017 04-15-2017 Chronic Esophageal disorders (5 sources) Gastro-esophageal reflux disease with esophagitis; Translations: [Gastroesophageal reflux disease with esophagitis, unspecified whether hemorrhage] Chronic Esophageal disorders (1 source) Esophageal disorders; Translations: [Gastroesophageal reflux disease with esophagitis, unspecified whether hemorrhage] Onset: 05-27-2025 Essential hypertension (20 sources) Hypertensive disorder; Translations: [...] headache syndrome; Translations: [Other headache syndrome] Episodic Inflammation; infection of eye (except that caused by tuberculosis or sexually transmitteddisease) (13 sources) Blepharitis; Translations: [Unspecified blepharitis right eye, unspecified eyelid] 03-20-2021 Episodic Intracranial injury (6 sources) Concussion with no loss of consciousness; Translations: [Concussion without loss of consciousness, initial encounter] Onset: 06-01-2025 05-27-2025 Episodic Menopausal disorders (1 source) Menopausal syndrome; Translations: [Menopausal and female climacteric states] 09-15-2024 Chronic Miscellaneous mental health disorders (1 source) Primary insomnia; Translations: [Primary insomnia] Onset: 05-27-2025 Chronic Mood disorders (5 sources) Depressive disorder; [...] carotid artery] Onset: 11-15-2015 11-15-2015 Chronic Osteoarthritis (20 sources) Osteoarthritis of left hip joint; Translations: [Unilateral primary osteoarthritis, left hip] Onset: 06-04-2025 03-10-2025 Chronic Other acquired deformities (15 sources) Degenerative disorder of musculoskeletal system; Translations: [Other secondary scoliosis, site unspecified] 04-16-2025 Chronic Other acquired deformities (1 source) Other secondary scoliosis, site unspecified; Translations: [Other secondary scoliosis, site unspecified] Onset: 06-04-2025 Chronic Other acquired deformities (15 sources) Spondylolisthesis; Translations: [Spondylolisthesis, site unspecified] 04-16-2025 Episodic Other acquired deformities (1 source) Spondylolisthesis, lumbar region; Translations: [Spondylolisthesis, lumbar region] Onset: 06-04-2025 Episodic Other acquired deformities (1 source) Spondylolisthesis, site unspecified; Translations: [Spondylolisthesis, site unspecified] Onset: 06-11-2025 Episodic Other aftercare (6 sources) Follow-up status; [...] Translations: [Follow-up examination after eye surgery] Onset: 04-20-2025 Episodic 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 sources) Pseudoxanthoma [...] Onset: 11-07-2022 Episodic Other connective tissue disease (13 sources) Inflammation of rotator cuff tendon; Translations: [Other shoulder lesions, unspecified shoulder] 12-18-2023 Episodic Other connective tissue disease (20 sources) Trochanteric bursitis; Translations: [Trochanteric bursitis, left [...] 04-30-2023 Episodic Other inflammatory condition of skin (13 sources) Pruritic rash; Translations: [Other pruritus] 03-20-2021 Episodic Other inflammatory condition of skin (2 sources) Intertrigo; Translations: [Erythema intertrigo] 04-22-2025 Episodic Other inflammatory condition of skin (1 source) Erythema intertrigo; Translations: [Intertrigo] Onset: 04-22-2025 Episodic Other injuries and conditions due to external causes (12 sources) Injury of right rotator cuff; Translations: [...] skin] 04-25-2023 Episodic Other non-traumatic joint disorders (12 sources) Pain in right shoulder; Translations: [Right shoulder pain] 11-06-2023 Episodic Other nutritional; endocrine; and metabolic disorders [...] movement disorder] 10-08-2024 Chronic Residual codes; unclassified (10 sources) Sleep apnea; Translations: [Sleep apnea, unspecified] [...] disorder)] Onset: 11-17-2024 Chronic Residual codes; unclassified (3 sources) Obstructive sleep apnea (adult) (pediatric); Translations: [Sleep apnea, obstructive] Onset: 08-21-2024 Chronic Residual codes; unclassified (2 [...] Spondylosis; intervertebral disc disorders; other back problems (16 sources) Lumbar spondylosis; Translations: [Spondylosis without myelopathy or radiculopathy, lumbar region] 03-10-2025 Chronic Spondylosis; intervertebral disc disorders; other back problems (17 sources) Lumbar radiculopathy; Translations: [Radiculopathy, lumbar region] [...] rotator cuff of right shoulder, initial encounter Unclassified (1 source) Established Patient Onset: 06-14-2025 Urinary tract infections (1 source) Acute lower urinary tract infection; Translations: [Urinary tract infection, site not specified] 10-31-2024 Episodic Viral infection (13 sources) Disease caused by 2019-nCoV; Translations: [COVID-19] 09-18-2021 Episodic Past or Other Problems Problem Classification Problem Date Documented Da te Episodic/Chronic Abdominal pain (20 sources) Upper abdominal pain; Translations: [Right upper quadrant pain] Onset: 01-29-2018 01-29-2018 Episodic Blindness and vision defects (20 sources) Photopsia; Translations: [Other subjective visual disturbances] Onset: 06-25-2022 Resolved: 06-25-2022 Episodic Fluid and electrolyte disorders (3 sources) Hypokalemia; Translations: [Hypokalemia] Onset: 12-29-2024 11-20-2024 Episodic Immunizations and screening for infectious disease (5 sources) Viral screening status; Translations: [Encounter for screening for other viral diseases] Onset: 03-02-2025 03-31-2024 Episodic Malaise and fatigue (3 sources) Fatigue; [...] finger, unspecified laterality] Onset: 12-29-2024 Episodic Other non-traumatic joint disorders (1 source) Pain in left hip; Translations: [Pain in left hip] Onset: 03-10-2025 Episodic Other screening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 Status: Never smoker alcohol intake: current alcohol intake frequency: holidays/special occasions only substance use type: does not use ROS ROS ED Eyes Eyes: Reports other Details: Only has peripheral vision and no change from baseline ENT ENT ED: Reports other Details: No tinnitus or decreased hearing ; Denies ear pain Cardiovascular Cardiovascular: Denies chest pain or palpitations Respiratory/Chest Respiratory/Ch (more content not included)... Normal [facility] Lipid 1996 panelon 5 Cholesterol [Mass/Vol] 144 mg/dL Normal <200 [facility] Comment on above: Order Comment: Speci men Type: BLOOD SPECIMEN Ordering Facility: [facility] Address: [address] [place] [address] Result Comment: <200 mg/dL, Desirable 200-239 mg/dL, Borderline high >239 mg/dL, High Performed By: #### 2 4331-1 #### [facility] CLIA [id number] [address] [place] [address] [place] [address] [place] Cholesterol in HDL [Mass/Vol] 53 mg/dL Normal >39 [facility] Comment on above: Order Comment: Speci men Type: BLOOD SPECIMEN Ordering Facility: [facility] Address: [address] [place] [address] Result Comment: 40-5 9 mg/dL, Acceptable >59 mg/dL, High: Negative risk factor for coronary heart disease <40 mg/dL, Low: Positive risk factor for coronary heart disease Performed By: #### 2 4331-1 #### [facility] CLIA [id number] [address] [place] [address] [place] Cholesterol in LDL [Mass/Vol] 73 mg/dL Normal <100 [facility] Comment on above: Order Comment: Brandan angelito Type: BLOOD SPECIMEN Ordering Facility: [facility] Address: [address] [place] [address] Result Comment: <100 mg/dL, Optimal 100-129 mg/dL, Near optimal/above optimal 130-159 mg/dL, Borderline high 160-189 mg/dL, High >189 mg/dL, Very high Secondary prevention optimal LDL Cholesterol levels are recommended to be <70 mg/dL LDL cholesterol is calculated using the Miranda-NIH equation. Performed By: #### 2 4331-1 #### [facility] CLIA [id number] [address] [place] [address] [place] Cholesterol in LDL/Cholesterol in HDL [Mass ratio] 1.38 {ratio} Normal <2.54 [facility] Comment on above: Order Comment: Altafemily eaton Type: BLOOD SPECIMEN Ordering Facility: [facility] Address: [address] [place] [address] Result Comment: Refanders brandonce: 1. National Cholesterol Education Program ATP III Guideline At-A-Glance Quick Desk Reference: National Heart, Lung, and Blood [place]. National Institutes of Health. 2001: NIH Publication No. 01-3305. 2. An International Atherosclerosis Society position paper: global recommendations for the management of dyslipidemia: executive summary, Atherosclerosis. 2014: 232(2):410-413. Performed By: #### 2 4331-1 #### [facility] CLIA [id number] [address] [id number] [address] [place] Cholesterol in VLDL [Mass/Vol] 14 mg/dL Normal <30 [facility] Comment on above: Order Comment: Speci men Type: BLOOD SPECIMEN Ordering Facility: [facility] Address: [address] [place] [address] Performed By: #### 2 4331-1 #### [facility] CLIA [id number] [address] [place] [address] [place] Cholesterol non HDL [Mass/Vol] 91 mg/dL Normal <130 [facility] Comment on above: Order Comment: Speci men Type: BLOOD SPECIMEN Ordering Facility: [facility] Address: [address] [place] [address] Result Comment: <130 mg/dL, Optimal 130-159 mg/dL, Near optimal/above optimal 160-189 mg/dL, Borderline high 190-219 mg/dL, High >219 mg/dL, Very high Secondary prevention optimal non HDL Cholesterol levels are recommended to be <100 mg/dL Performed By: #### 2 4331-1 #### [facility] CLIA [id number] [address] [place] [address] [place] Cholesterol.total/Cho lesterol in HDL [Mass ratio] 2.72 {ratio} Normal <5.10 [facility] Comment on above: Order Comment: Speci men Type: BLOOD SPECIMEN Ordering Facility: [facility] Address: [address] [place] [address] Performed By: #### 2 4331-1 #### [facility] CLIA [id number] [address] [place], [place] [address] [place] FASTING TIME 13 hrs Normal [facility] Comment on above: Order Comment: Speci men Type: BLOOD SPECIMEN Ordering Facility: [facility] Address: [address] [place] [address] Performed By: #### 2 4331-1 #### [facility] CLIA [id number] [address] [place] [address] [place] Triglyceride [Mass/Vol] 96 mg/dL Normal <150 [facility] Comment on above: Order Comment: Speci men Type: BLOOD SPECIMEN Ordering Facility: [facility] Address: [address] [place] [address] Result Comment: <150 mg/dL, Normal 150-199 mg/dL, Borderline high 200-499 mg/dL, High >499 mg/dL, Very high Performed By: #### 2 4331-1 #### [facility] CLIA [id number] [address] [place] [address] [place] [address] [place] CNPNon 05-17-2025 CNPN Telephone (PMNA11) ALLIE RUTLEDGE ([id number]) 1970 F [place] Date Time Provider Department 05/17/25 AILSINN MCMULLEN PMNA11 During your visit today, we recorded [...] glaucoma (PO (more content not included)... Normal [facility] Magnetic resonance imaging r eportOrdered By: Brittaney Barth on 05-10-2025 Study report [facility] Imaging Services [address] [place], [place] [id number] Spine Lumbar (Routine) MR#: [id number] Acct: [id number] Name: ALLIE RUTLEDGE Rep #: [id number] : 1970 F 55 From: Shaan Barth MD PCP: Dr. Ifeoma Davis MD Status: REG C WALLY Study:Spine Lumbar (Routine) Date of Exam: 05/07/25 Exam# [id number] Ordering Dr: Shauna Cameron MD PROCEDURE: SPINE LUMBAR (ROUTINE) 05/07/2025 REASON FOR EXAM: LUMBAR RADICULOPATHY TECHNIQUE: Procedure Code: MRISPL Modality: MR Procedure: SPINE LUMBAR (ROUTINE) COMPARISON: 02/13/2019 FINDINGS: The vertebral bodies of normal height. 5 lumbar type vertebra are present.. Noanterior or retrolisthesis. Mild scoliosis. There is no [...] loss of disc space height. Diffuse bulge. Facetarthropathy ligamentum flavum hypertrophy. Moderate central stenosis. There is bilateral foraminal encroachment more so onthe right than the left with mass effect [...] L1-2 with associated central stenosis. Reading Location: [facility] CC: Dr. Michael Cameron MD; Dr. Ifeoma Davis MD ~ Slumber Room Attendant: Signed [facility] Spine Lumbar (Routine)on Spine Lumbar (Routine) [facility] Imaging Services [address] [place], [place] [address] Spine Lumbar (Routine) MR#: [id number] Acct: [id number] Name: ALLIE RUTLEDGE Rep #: [id number] : 1970 F 55 From: Brittaney stacy MD PCP: Dr. Ifeoma Davis MD Status: REG CLI Study: Spine Lumbar (Routine) Date of Exam: 05/07/25 Exam# [id number] Ordering Dr: Michael Cameron MD PROCEDURE: SPINE [...] L1-2 with associated central stenosis. Reading Location: [id number] CC: Dr. Michael Cameron MD; Dr. Ifeoma Davis MD Slumber Room Attendant: Signed [facility] 04-28-2025 [facility] Telephone (INTMWS) ALLIE RUTLEDGE ([id number]) 1970 F [place] Date Time Provider Department 04/28/25 IFEOMA DAVIS During your visit today, we [...] to Ludy Javier. Please review and advise, BRITTANY Lanza Amanda, RN 04/28/2025 4:43 PM Signed Pt called in to see if provider had called in a steroid for her. I let her know that the provider had not gotten to the message as of yet. Please call and advise. 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 Normal [facility] CNOVon 04-22-2025 CNOV Office Visit (INTMWS ) ALLIE RUTLEDGE ([id number]) 1970 F Date Time Provider Department 04/22/25 10:20 AM IFEOMA DAVIS INTMWS During your visit today, we recorded the following information about you: Pulse Respiration Blood pressure Weight 79/minute 16/minute 129/79 66.5 kg Ifeoma Davis MD 04/22/2025 12:54 PM Signed Reason for Visit Follow up HPI Allie Rutledge is a 54-year-old female with a history of glaucoma, scoliosis, and sleep apnea, presenting for evaluation of recent eye surgery complications, intertrigo, and poison boo exposure. She is accompanied by a friend, who is providing additional history. Allie recently underwent eye surgery at the [facility] due to a significant decrease in intraocular [...] also mentions a recent dental visit at [facility], where she discussed treatment options for her [...] 3-dose seri (more content not included)... Normal [facility] Cassi 04-22-2025 DIANN Telephone (INTMWS) ALLIE RUTLEDGE ([id number]) 1970 F [place] Date Time Provider Department 04/22/25 IFEOMA DAVIS During your visit today, we recorded the following information about you: Clint Brennan RN 04/22/2025 11:33 AM Signed [facility] called for clarification on Fluconazole [...] Choroidal neovascul (more content not included)... Normal [facility] L/S Spine Bending Flex/[place] 04-16-2025 L/S Spine Bending Flex/Ext [facility] Imaging Services [address] [place] [address] L/S Spine Bending Flex/Ext MR#: [id number] Acct: [id number] Name: ALLIE RUTLEDGE ANN Rep #: [id number] : 1970 F 54 From: Alan Perales MD PCP: Dr. Ifeoma Davis MD Status: DEP [facility] Study: L/S Spine Bending Flex/Ext Date of Exam: 04/16 Exam# [id number] Ordering Dr: Sarah Segura PROCEDURE: L/S SPINE BENDING FLEX/EXT 04/16/2025 REASON [...] pronounced at L3-4. Multilevel spondylolisthesis. Reading Location: [id number] CC: KENA Perkins; Dr. Ifeoma Davis MD Slumber Room Attendant: Signed Normal [facility] Orthopedic Visit Reporton Orthopedic Visit Report [facility] [address] [place] [address] OFFICE VISIT Date of Service: 04/16/25 MR#: [id number] Acct: [id number] Name: ALLIE RUTLEDGE Rep #: [id number] : 1970 Provider: Dr. Michael Cameron MD Age/Sex: 54/F Location: [facility] Status: Signed Intake Vital Signs 12/09/24 13:28 [...] QDAY 12/09/24 04/16/25 H istory omega-3 720 ja-ksk-zix-fish cap PO 12/09/24 04/16/25 History oil-vit D3 [...] Cande Vidal RN, acting as scribe. 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 She has became more of a fall risk due to the pain and stiffness. She does have weakness in her left leg and primarily uses the right leg to lead especially when going up steps. Dr. Betancourt did prescribe her Percocet yesterday for rosanne (more content not included)... [facility]WOUCA[facility] ALLIE RUTLEDGE ([id number]) 1970 F [place] Date Time Provider Department 04/11/25 1:15 PM AISLINN MCMULLEN During your visit today, we recorded the following information about you: Temperature Pulse Respiration Blood pressure 97.2 degrees 82/minute 20/minute 110/62 Weight 66.1 kg Aislinn Mcmullen PA-C 04/11/2025 1:30 PM Signed We discussed [...] not improve, please contact our office. Aislinn Mcmullen PA-C 04/11/2025 1:41 PM Signed [facility] NOTE Ifeoma Davis MD [address] [facility] [place] [address] Allie Rutledge is a 54-year-old female with a history of HTN, wet macular degeneration, and PXE, presenting with cough and sinus congestion. lAlie reports onset of symptoms following her 9th [...] the care of multiple specialists at the [facility]. She also has a history of HTN, [...] revision (bleb reduction) x 11/15/2022- Dr. Cynthia Paparizos, M.D. [place] [address] SOCIAL HISTORY[3] Physical Exam: BP 110/62 Pulse [...] on sandi (more content not included)... Normal [facility]20[facility] ALL[facility] RUTLED[facility] ([id number]) 1970 F Date Time Provider Department 04/03/25 [facility] During your visit today, we recorded [...] concerns and asked them to call back [phone] at any time when available to discuss [...] Itching Date Reviewed: 04/02/2025 Reviewed by: Adriana Talbert MD - Fully Assessed Prescriptions as of [...] atherosclerosis [I65.29] 11/15/2015 PAD (peripheral artery disease) ([facility]) [I73.9] 11/15/2015 VHD (valvular heart disease) [I38] [...] left eye,*11/15/2022 (more content not included)... Normal [facility] 03-31-2025 CNPN Telephone (INTMWS) ALLIE RUTLEDGE ([id number]) 1970 F Date Time Provider Department 03/31/25 IFEOMA DAVIS INTWS During your visit today, [...] of ag (more content not included)... Normal [facility] CNPNon 03-30-2025 CNPN Telephone (OPHTMN) ALLIE RUTLEDGE ([id number]) 1970 F Date Time Provider Department 03/30/25 ADRIANA TALBERT OPHN During your visit today, we recorded the following information about you: Gely Plascencia 03/30/2025 2:48 PM Signed The patient reports experiencing tearing from the left eye approximately four to five times daily. Is this considered normal? [phone] sx: 03/25/2025 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 [[id number]] - Eye - Left Adriana Talbert MD 03/30/2025 5:23 PM Signed YES. I can see her in [place] tomorrow (Sat) if she wants. Otherwise she has an appt Saturday with Dr. Ayala. I am on site and happy to come over if needed. Gely Plascencia 03/31/2025 8:18 AM Signed The patient has requested that you visit on Saturday to examine her eye. Adriana Talbert MD 03/31/2025 12:04 PM Signed I moved [...] Itching Date Reviewed: 03/25/2025 Reviewed by: Spring Hernandez, RN - Fully Assessed Reason for Visit: [...] 01/29/2018 Sec (more content not included)... Normal [facility] CNPNon 03-26-2025 CNPN Telephone (OPHTMN) ALLIE RUTLEDGE ([id number]) 1970 F Date Time Provider Department 03/26/25 BRITTANEY MCKEON During your visit today, we recorded the following information about you: Brittaney Mckeon MD 03/26/2025 8:50 PM Addendum Received page that patient had called with concern over eye tearing. Spoke to them on the phone: Patient is POD1 of revision of trabeculectomy bleb of the left eye with Dr. Talbert. Attempted to call 2x and went to [...] The eye clinic can be reached at [phone] and you can ask to speak to the contracting officer supervisor blast furnace auxiliaries. Brittaney Mckeon MD Ophthalmology Resident, [facility] [place] Brittaney Mckeon MD 03/26/2025 8:50 PM Signed [...] [I73.9] 11/15/2015 (more content not included)... Normal [facility] ANES POSTPROC EVALon 025 ANES POSTPROC EVAL HNO ID: [id number] Author: JUSTINE GALVAN MD Service: ? Author Type: Anesthesiologist Type: Anesthesia Postprocedure Evaluation Filed: 03/25/2025 13:36 Note Text: POST ANESTHESIA EVALUATION NOTE : 1970 Procedure Summary Date: 03/25/25 Room / Location: [address] Anesthesia Start: 1140 Anesthesia Stop: 1232 Procedure: 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 (Left: Eye) Diagnosis: Leaking of conjunctival drainage bleb (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, T81.31XA]) Surgeons: Adriana Talbert MD Responsible Provider: Justine Galvan MD Anesthesia [...] SIGNATURE: Justine Galvan MD PATIENT NAME: Allie Rutledge DATE: March 25, 2025 TIME: 1:36 PM CSN: [id number] Normal [facility] ANES PRE-OPon 03-25-2025 ANES PRE-OP HNO ID: [id number] Author: JUSTINE GALVAN MD Service: ? Author Type: Anesthesiologist Type: Anesthesia Preprocedure Evaluation Filed: 03/25/2025 10:55 Note Text: ANESTHESIOLOGY DAY OF SURGERY NOTE : 1970 Procedure Information Date/Time: 03/25/25 1201 Procedure: 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 (Left: Eye) Location: [place] [address] / [facility] Surgeons: Adriana Talbert MD Estimated body mass index is 27.78 [...] and consent discussed: yes. Patient / Responsible Republican agrees to proceed: yes Patient / Surrogate [...] SIGNATURE: Justine Galvan MD PATIENT NAME: Allie Rutledge DATE: March 25, 2025 TIME: 10:55 AM CSN: [id number] Normal [facility] OPERATIVE NOon 03-25-2025 OPERATIVE NO HNO ID: [id number] Author: ADRIANA TALBERT MD Service: Ophthalmology Author Type: Physician Type: Operative Report Filed: 03/25/2025 12:38 Note Text: OPERATIVE REPORT NAME: Allie Rutledge LOG ID: [id number] SURGERY DATE: 03/25/2025 INCISION/PROCEDURE START TIME: 11:54 AM INCISION CLOSE/PROCEDURE END TIME: 12:25 PM Surgeons and Role: * Adriana Talbert MD - Primary * Marquita Mclean MD [...] qualified resident was available and a skilled special education assistant was necessary to complete the case I/primary surgeon/proceduralist performed the procedure with assistance. The fellow was needed for exposure of tissues and assistance with hemostasis. Adriana Talbert M.D. Normal [facility] Basic metabolic 2000 panelOr dered By: Mahsa Aponte on 03-24-2025 Anion gap [Moles/Vol] 12 mmol/L 8 - 15 mmol/L [facility] Calcium [Mass/Vol] 9.6 mg/dL 8.5 - 10. 2 mg/dL [facility] Chloride [Moles/Vol] 99 mmol/L 98 - 10 7 mmol/L [facility] CO2 [Moles/Vol] 25 mmol/L 22 - 30 mmol/L [facility] Creatinine [Mass/Vol] 0.99 mg/dL High 0.58 - 0.96 mg/dL [facility] GFR/1.73 sq M.predicted among non-blacks MDRD (S/P/Bld) [Vol rate/Area] 67 mL/min/{1.73_m2} - PINF [facility] Comment on above: Estimated Glomerular Filtration Rate [...] 94 mg/dL 74 - 99 mg/dL [facility] Comment on above: The [place] Diabete s Association (ADA) provides guidance for [...] Standards of Medical Care in Diabetes 2016, [place] Diabetes Association. Diabetes Care. 2016.39(Suppl 1). Interpretation and review of laboratory results Abnormal [facility] Potassium [Moles/Vol] 4.1 mmol/L 3.7 - 5.1 mmol/L [facility] Sodium [Moles/Vol] 136 mmol/L 136 - 144 mmol/L [facility] Urea nitrogen [Mass/Vol] 20 mg/dL 7 - 21 mg/dL [facility] Basic metabolic 2000 panelon 03-24-2025 Anion gap [Moles/Vol] 12 mmol/L Normal 8-15 [facility] Comment on above: Order Comment: Speci men Type: BLOOD SPECIMEN Ordering Facility: [facility] Address: [address] [place] [address] Performed By: #### 2 4321-2 #### [id number] [address] [place] [address] [place] Calcium [Mass/Vol] 9.6 mg/dL Normal 8.5-10.2 [facility] Comment on above: Order Comment: Speci men Type: BLOOD SPECIMEN Ordering Facility: [facility] Address: [address] [place] [address] Performed By: #### 2 4321-2 #### [facility] CLIA [id number] [address] [place] [address] [place] Chloride [Moles/Vol] 99 mmol/L Normal 98-107 [facility] Comment on above: Order Comment: Speci men Type: BLOOD SPECIMEN Ordering Facility: [facility] Address: [address] [place], [place] [address] Performed By: #### 2 4321-2 #### [facility] CLIA [id number] [address] [place] [address] [place] CO2 [Moles/Vol] 25 mmol/L Normal 22-30 [facility] Comment on above: Order Comment: Speci men Type: BLOOD SPECIMEN Ordering Facility: [facility] Address: [address] [place] [address] Performed By: #### 2 4321-2 #### [facility] CLIA [id number] [address] [place] [address] [place] Creatinine [Mass/Vol] 0.99 mg/dL High 0.58-0.96 [facility] Comment on above: Order Comment: Speci men Type: BLOOD SPECIMEN Ordering Facility: [facility] Address: [address] [place] [address] Performed By: #### 2 4321-2 #### [facility] [id number] [address] [place] [address] [place] eGFRcr SerPlBld CKD-EPI 2020 67 mL/min/1.73m??? Normal >=60 [facility] Comment on above: Order Comment: Speci men Type: BLOOD SPECIMEN Ordering Facility: [facility] Address: [address] [place] [address] Result Comment: Zaria mated Glomerular Filtration Rate [...] GFR. Performed By: #### 2 4321-2 #### [facility] CLIA [id number] [address] [place] [address] [place] Glucose [Mass/Vol] 94 mg/dL Normal 74-99 [facility] Comment on above: Order Comment: Speci men Type: BLOOD SPECIMEN Ordering Facility: [facility] Address: [address] [place] [address] Result Comment: The [place] Diabetes Association (ADA) provides guidance for cutoff [...] Standards of Medical Care in Diabetes 2016, [place] Diabetes Association. Diabetes Care. 2016.39(Suppl 1). Performed By: #### 2 4321-2 #### [facility] [id number] [address] [place] [address] [place] Potassium [Moles/Vol] 4.1 mmol/L Normal 3.7-5.1 [facility] Comment on above: Order Comment: Brandan eaton Type: BLOOD SPECIMEN Ordering Facility: [facility] Address: [address] [place] [address] Performed By: #### 2 4321-2 #### [facility] [id number] [address] [place] [address] [place] Sodium [Moles/Vol] 136 mmol/L Normal 136-144 [facility] Comment on above: Order Comment: Altafi men Type: BLOOD SPECIMEN Ordering Facility: [facility] Address: [address] [place] [address] Performed By: #### 2 4321-2 #### [facility] CLIA [id number] [address] [place] [address] [place] Urea nitrogen [Mass/Vol] 20 mg/dL Normal 7-21 [facility] Comment on above: Order Comment: Speci men Type: BLOOD SPECIMEN Ordering Facility: [facility] Address: [address] [place], [place] [address] [address] Performed By: #### 2 4321-2 #### [facility] CLIA [id number] [address] [place] [id number] [place] CBC W Auto Differential pane l (Bld)on 03-24-2025 Basophils (Bld) [#/Vol] 0.05 10*3/uL [facility] Basophils/100 WBC (Bld) 0.6 % [facility] Differential cell count method Nom (Bld) Auto [facility] Eosinophils (Bld) [#/Vol] 0.23 10*3/uL [facility] [facility] E[facility]/100 WBC (Bld) 2.9 % [facility] Erythrocyte distribution width (RBC) [Ratio] 12.7 % 11.5 - 15.0 % [facility] Hematocrit (Bld) [Volume fraction] 36.8 % 36.0 - 46.0 % [facility] Hemoglobin (Bld) [Mass/Vol] 12.1 g/dL 11.5 - 15.5 g/dL [facility] Immature granulocytes (Bld) [#/Vol] 0.04 10*3/uL [facility] Immature granulocytes/100 WBC (Bld) 0.5 % [facility] Lymphocytes (Bld) [#/Vol] 1.31 10*3/uL [facility] Lymphocytes/100 WBC (Bld) 16.7 % [facility] MCH (RBC) [Entitic mass] 29.9 pg 26.0 - 34.0 pg [facility] MCHC (RBC) [Mass/Vol] 32.9 g/dL 30.5 - 36.0 g/dL [facility] MCV (RBC) [Entitic vol] 90.9 fL 80.0 - 100.0 fL [facility] Monocytes (Bld) [#/Vol] 0.85 10*3/uL [facility] Monocytes/100 WBC (Bld) 10.8 % [facility] Neutrophils (Bld) [#/Vol] 5.38 10*3/uL [facility] Neutrophils/100 WBC (Bld) 68.5 % [facility] Nucleated RBC (Bld) [#/Vol] NINF [facility] Nucleated RBC/100 WBC (Bld) [Ratio] 0 % /100 WBC [facility] Platelet mean volume (Bld) [Entitic vol] 9.8 fL 9.0 - 12.7 fL [facility] Platelets (Bld) [#/Vol] 375 10*3/uL [facility] RBC (Bld) [#/Vol] 4.05 10*6/uL 3.90 - 5.2 0 m/uL [facility] WBC (Bld) [#/Vol] 7.86 10*3/uL [facility] Basophils (Bld) [#/Vol] 0.05 10*3/uL Normal <0.11 [facility] Comment on above: Order Comment: Speci men Type: BLOOD SPECIMEN Ordering Facility: [facility] Address: [address] [place] [address] Performed By: #### 5 7021-8 #### [id number] [address] [place] [address] [place] Basophils/100 WBC (Bld) 0.6 % Normal [facility] Comment on above: Order Comment: Speci men Type: BLOOD SPECIMEN Ordering Facility: [facility] Address: [address] [place] [address] Performed By: #### 5 7021-8 #### [facility] [id number] [address] [place] [address] [place] Differential cell count method Nom (Bld) Auto Normal [facility] Comment on above: Order Comment: Speci men Type: BLOOD SPECIMEN Ordering Facility: [facility] Address: [address] [place] [address] Performed By: #### 5 7021-8 #### [facility] CLIA [id number] [address] [place] [address] [place] Eosinophils (Bld) [#/Vol] 0.23 10*3/uL Normal <0.46 [facility] Comment on above: Order Comment: Speci men Type: BLOOD SPECIMEN Ordering Facility: [facility] Address: [address] [place] [address] Performed By: #### 5 7021-8 #### [facility] CLIA [id number] [address] [place] [address] [place] Eosinophils/100 WBC (Bld) 2.9 % Normal [facility] Comment on above: Order Comment: Speci men Type: BLOOD SPECIMEN Ordering Facility: [facility] Address: [address] [place], [place] [address] Performed By: #### 5 7021-8 #### [facility] CLIA [id number] [address] [place] [address] [place] Erythrocyte distribution width (RBC) [Ratio] 12.7 % Normal 11.5-15.0 [facility] Comment on above: Order Comment: Speci men Type: BLOOD SPECIMEN Ordering Facility: [facility] Address: [address] [place] [address] Performed By: #### 5 7021-8 #### [facility] CLIA [id number] [address] [place] [address] [place] Hematocrit (Bld) [Volume fraction] 36.8 % Normal 36.0-46.0 [facility] Comment on above: Order Comment: Speci men Type: BLOOD SPECIMEN Ordering Facility: [facility] Address: [address] [place] [address] Performed By: #### 5 7021-8 #### [facility] CLIA [id number] [address] [place] [address] [place] Hemoglobin (Bld) [Mass/Vol] 12.1 g/dL Normal 11.5-15.5 [facility] Comment on above: Order Comment: Speci men Type: BLOOD SPECIMEN Ordering Facility: [facility] Address: [address] [place] [address] Performed By: #### 5 7021-8 #### [facility] CLIA [id number] [address] [place] [address] [place] Immature granulocytes (Bld) [#/Vol] 0.04 10*3/uL Normal <0.10 [facility] Comment on above: Order Comment: Speci men Type: BLOOD SPECIMEN Ordering Facility: [facility] Address: [address] [place] [address] Performed By: #### 5 7021-8 #### [facility] CLIA [id number] [address] [place] [address] [place] Immature granulocytes/100 WBC (Bld) 0.5 % Normal [facility] Comment on above: Order Comment: Speci men Type: BLOOD SPECIMEN Ordering Facility: [facility] Address: [address] [place] [address] Performed By: #### 5 7021-8 #### [facility] CLIA [id number] [address] [place] [address] [place] Lymphocytes (Bld) [#/Vol] 1.31 10*3/uL Normal 1.00-4.00 [facility] Comment on above: Order Comment: Speci men Type: BLOOD SPECIMEN Ordering Facility: [facility] Address: [address] [place] [address] Performed By: #### 5 7021-8 #### [facility] CLIA [id number] [address] [place] [address] [place] Lymphocytes/100 WBC (Bld) 16.7 % Normal [facility] Comment on above: Order Comment: Speci men Type: BLOOD SPECIMEN Ordering Facility: [facility] Address: [address] [place] [address] Performed By: #### 5 7021-8 #### [facility] CLIA [id number] [address] [place] [address] [place] MCH (RBC) [Entitic mass] 29.9 pg Normal 26.0-34.0 [facility] Comment on above: Order Comment: Speci men Type: BLOOD SPECIMEN Ordering Facility: [facility] Address: [address] [place] [address] Performed By: #### 5 7021-8 #### [facility] CLIA [id number] [address] [place] [address] [place] MCHC (RBC) [Mass/Vol] 32.9 g/dL Normal 30.5-36.0 [facility] Comment on above: Order Comment: Speci men Type: BLOOD SPECIMEN Ordering Facility: [facility] Address: [address] [place] [address] Performed By: #### 5 7021-8 #### [facility] CLIA [id number] [address] [place] [address] [place] MCV (RBC) [Entitic vol] 90.9 fL Normal 80.0-100.0 [facility] Comment on above: Order Comment: Speci men Type: BLOOD SPECIMEN Ordering Facility: [facility] Address: [address] [place] [address] Performed By: #### 5 7021-8 #### [facility] CLIA [id number] [address] [place] [address] [place] Monocytes (Bld) [#/Vol] 0.85 10*3/uL Normal <0.87 [facility] Comment on above: Order Comment: Speci men Type: BLOOD SPECIMEN Ordering Facility: [facility] Address: [address] [place] [address] Performed By: #### 5 7021-8 #### [facility] [id number] [address] [place] [address] [place] Monocytes/100 WBC (Bld) 10.8 % Normal [facility] Comment on above: Order Comment: Speci men Type: BLOOD SPECIMEN Ordering Facility: [facility] Address: [address] [place] [address] Performed By: #### 5 7021-8 #### [facility] CLIA [id number] [address] [place] [address] [place] Neutrophils (Bld) [#/Vol] 5.38 10*3/uL Normal 1.45-7.50 [facility] Comment on above: Order Comment: Speci men Type: BLOOD SPECIMEN Ordering Facility: [facility] Address: [address] [place] [address] Performed By: #### 5 7021-8 #### [facility] CLIA [id number] [address] [place] [address] [place] Neutrophils/100 WBC (Bld) 68.5 % Normal [facility] Comment on above: Order Comment: Speci men Type: BLOOD SPECIMEN Ordering Facility: [facility] Address: [address] [place] [address] Performed By: #### 5 7021-8 #### [facility] CLIA [id number] [address] [place] [address] [place] Nucleated RBC (Bld) [#/Vol] 10*3/uL Normal <0.01 [facility] Comment on above: Order Comment: Speci men Type: BLOOD SPECIMEN Ordering Facility: [facility] Address: [address] [place] [address] Performed By: #### 5 7021-8 #### [facility] CLIA [id number] [address] [place] [address] [place] Nucleated RBC/100 WBC (Bld) [Ratio] 0.0 /100 WBC Normal [facility] Comment on above: Order Comment: Speci men Type: BLOOD SPECIMEN Ordering Facility: [facility] Address: [address] [place] [address] Performed By: #### 5 7021-8 #### [facility] CLIA [id number] [address] [place] [address] [place] Platelet mean volume (Bld) [Entitic vol] 9.8 fL Normal 9.0-12.7 [facility] Comment on above: Order Comment: Speci men Type: BLOOD SPECIMEN Ordering Facility: [facility] Address: [address] [place] [address] Performed By: #### 5 7021-8 #### [facility] CLIA [id number] [address] [place] [address] [place] Platelets (Bld) [#/Vol] 375 10*3/uL Normal 150-400 [facility] Comment on above: Order Comment: Speci men Type: BLOOD SPECIMEN Ordering Facility: [facility] Address: [address] [place] [address] Performed By: #### 5 7021-8 #### [facility] CLIA [id number] [address] [place] [address] [place] RBC (Bld) [#/Vol] 4.05 10*6/uL Normal 3.90-5.20 [facility] Comment on above: Order Comment: Speci men Type: BLOOD SPECIMEN Ordering Facility: [facility] Address: [address] [place] [address] Performed By: #### 5 7021-8 #### [facility] CLIA [id number] [address] [place] [address] [place] WBC (Bld) [#/Vol] 7.86 10*3/uL Normal 3.70-11.00 [facility] Comment on above: Order Comment: Speci men Type: BLOOD SPECIMEN Ordering Facility: [facility] Address: [address] [place] [address] Performed By: #### 5 7021-8 #### [facility] CLIA [id number] [address] [place] [address] [place] CNPMiranda 03-24-2025 CNPN Telephone ([facility]) AAMIRALLIE Juli ([id number]) 1970 F LV Date Time Provider Department 03/24/25 JANET MARTINEZ During your visit today, we recorded the following information about you: Jackelin Fields 03/24/2025 9:42 AM Signed Allie Rutledge CCF# [id number] Patient calling w/update BCL Contact not working Leaking fluid still, face is wet and sticky Janet Martinez MD filed at 03/23/2025 3:55 PM Status: Signed Urgent visit for bleb leak OS Sent by [facility] doctor for bleb leak OS X 4 days IOP was 0 yesterday Today 03/23/2025 Brisk leak OS - IOP 7.8 - AC deep - no choroidals - Discussed conservative management vs surgery, discussed R/B/A of each - BCL placed today 03/23/2025 - timolol BID OS, moxifloxacin QID OS - follow up with Dr. Martinez 04/06/25 - will post for bleb revision 04/12 and if still leaking 04/06 will revise 04/12 Adriana Talbert MD 03/24/2025 2:21 PM Signed I told Dr. Martinez I would do the surgery. Yesteday while patient was seeing Dr. Martinez, Dr. Martinez reached out to me and I spoke [...] Assessed Reason for Visit: Patient Question [1477] Prescriptions as of 03/24/2025 - moxifloxacin (VIGAMOX) [...] once daily. - CPAP/BIPAP/OTHER APAP 5-18 cmH2O [facility] - zolpidem (AMBIEN) 5 mg tablet Take [...] The medications (more content not included)... Normal [facility] HISTORY PHYSICALon HISTORY PHYSICAL HNO ID: [id number] Author: EMILY CHAPARRO APRN.DEBORAH Service: ? 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 CHIEF COMPLAINT: Pre-op exam HPI: Allie Rutledge is a 54 year old seen for PAC due to scheduled above surgery because Leaking of conjunctival drainage bleb. 03/23/25, Dr. Figueroa Urgent visit for bleb leak OS Sent by [facility] doctor for bleb leak OS X 4 days IOP was 0 yesterday Today 03/23/2025 Brisk leak OS - IOP 7.8 - AC deep - no choroidals - Discussed conservative management vs (more content not included)... Normal [facility] CNPNon 03-23-2025 CNPN Telephone (OPHTSK) ALLIE RUTLEDGE ([id number]) 1970 F [place] Date Time Provider Department 03/23/25 CYNTHIA RAMOS During your visit today, we recorded the following information about you: Janet Rivero RN 03/23/2025 9:54 AM Signed Spoke with patient. Sent the following message to Dr. Ramos in a Urgent Secure Chat regarding conversation: Received chart notes from [facility] Ankur Curtis MD. Patient has loose Exposed [...] 07. Maybe its better to go to [facility] to be cared for Left message for patient to call the office to obtain the above information. Barbie Alicea reaching out to [facility] scheduling to find the availability of a cardiac exercise specialist to take over patient care with [...] once daily. - CPAP/BIPAP/OTHER APAP 5-18 cmH2O [facility] - zolpidem (AMBIEN) 5 mg tablet Take [...] - aspirin, (more content not included)... Normal [facility] FUNDUS PHOTOS OU (BOTH EYES) on 03-23-2025 [facility] No Panel Informationon 03-23 Radiology Study observation (narrative) [facility] OCT OPTIC NERVE CIRRUS OU (B OTH EYES)on 03-23-2025 [facility] PACHYMETRY OU (BOTH EYES)on 03-23-2025 [facility] Radiology Study observation (narrative) [facility] SLIT LAMP PHOTOS OU (BOTH EY ES)on 03-23-2025 [facility] Lumbar Spine 2 or 3 Viewson 03-10-2025 Lumbar Spine 2 or 3 Views [facility] Imaging Services [address] [place], [place] [id number] Lumbar Spine 2 or 3 Views MR#: [id number] Acct: [id number] Name: ALLIE RUTLEDGE Rep #: [id number] : 1970 F 54 From: Alan Perales MD PCP: Dr. Ifeoma Davis MD Status: DEP AMB Study: Lumbar Spine 2 or 3 Views Date of Exam: Exam# [id number] Ordering Dr: Phillip Pozo DO PROCEDURE: LUMBAR SPINE 2 OR 3 VIEWS 03/10/2025 REASON FOR EXAM: CHRONIC BACK PAIN TECHNIQUE: LUMBAR SPINE 2 OR 3 VIEWS COMPARISON: None. FINDINGS: No evidence of acute fracture or dislocation. Levoscoliosis. Bnem-tb-cqkxlgiy discogenic degenerative changes of the visualized spine. RAD/Lumbar Spine 2 or 3 Views IMPRESSION: Spondylosis. Levoscoliosis. Reading Location: [id number] CC: Dr. Ifeoma Davis MD; Dr. Pihllip Pozo DO Slumber Room Attendant: Signed Normal [facility] Orthopedic Visit Reporton Orthopedic Visit Report [facility] [address] [place], [place] [id number] OFFICE VISIT Date of Service: 03/10/25 MR#: [id number] Acct: [id number] Name: ALLIE RUTLEDGE ANN Rep #: [id number] : 1970 Provider: Dr. Phillip goldman DO Age/Sex: 54/F Location: [facility] Status: Signed Intake Vital Signs 12/09/24 13:28 [...] QDAY 12/09/24 03/10/25 H istory omega-3 720 rh-vcu-ohq-fish cap PO 12/09/24 03/10/25 History oil-vit D3 [...] Bianka Cardoza ATC, acting as scribe. ALLIE RUTLEDGE is a 54 year old F chronic [...] She has had many injections with Dr. Betanocurt. (more content not included)... [facility] Nurse Visit (FAMPWS) ALLIE RUTLEDGE ([id number]) 1970 F Date Time Provider Department 03/02/25 12:45 PM [facility] During your visit today, we recorded the [...] once daily. 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 03-01-2025 CNPN Telephone (INTMWS) ALLIE RUTLEDGE ([id number]) 1970 F [place] Date Time Provider Department 03/01/25 IFEOMA DAVIS INTMWS During your visit today, we recorded the following information about you: YESI NIX 03/01/2025 7:56 AM Signed Patient scheduled for nurse visit 03/02/25 to receive TDAP vaccine. Please place order at this time. Yesi Nix LPN Allergies As of Date: 03/01/2025 Noted [...] Order(s):TDAP VACCINE, AGE 7+ YR (ADACEL, BOOSTRIX) [[id number]] Order #: [id number] Prescriptions as of 03/02/2025 - meloxicam (MOBIC) [...] once daily. 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 (more content not included)... Normal [facility] CNPNon 02-25-2025 CNPN Telephone (INTMWS) ALLIE RUTLEDGE ([id number]) 1970 F LV Date Time Provider Department 02/25/25 IFEOMA DAVIS INTMWS During your visit today, [...] be coming in to get this with AL nurse on 03/03/25. Spring Peñaloza RN Allergies [...] once daily. 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 Normal [facility] CNPNon 01-12-2025 CNPN Telephone (INTMWS) ALLIE RUTLEDGE ([id number]) 1970 F LV Date Time Provider Department 01/12/25 IFEOMA DAVIS INTMWS During your visit today, we recorded the following information about you: Angelica Arreola RN 01/12/2025 12:21 PM Addendum Patient reports she has lost her blindness cane. States she spoke with her insurance company [employer] and they state for PCP to write a new order and send to DME company. Order pended for provider review. Please fax order to [facility]. Please call patient with an update. BRITTANY De La Fuente Mary, LPN 01/13/2025 8:10 AM Signed Faxed order to [facility] per patient request Janet Meza LPN January 13, 2025 8:10 AM Allie Mcknight LPN 01/13/2025 9:13 AM Signed Roman from [facility] calling said they do not carry that [...] eye [H54.0X34] Order(s):DME SUPPLY OR ACCESSORY, NOS [[id number]] Order #: [id number] Prescriptions as of 01/13/2025 - meloxicam (MOBIC) [...] once daily. 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 [facility] ALL[facility] ([id number]) 1970 F LV Date Time Provider Department 01/12/25 MICHELLE BECERRIL During your visit today, we recorded the [...] once daily. 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 Normal [facility] 12-30-2024 [facility] Telephone (SLEWST) ALLIE RUTLEDGE ([id number]) 1970 F LV Date Time Provider Department 12/30/24 MICHELLE BECERRIL During your visit today, we recorded the following information about you: Alexy Eve Gratn 12/30/2024 8:40 AM Signed Patient calling in to let Michelle Becerril know her results from her CPAP are [...] results and sent her CPAP orders to [facility] in [place]. They should be reaching out to her [...] once daily. 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 She [...] - P (more content not included)... Normal [facility] POLYSOMNOGRAM (PSG)on 2024 [facility] [place] at [address], [place] [address] ; PSG Study Report Name: ALLIE RTULEDGE Date of Study: 11/17/2024 CC#: [id number] Age: 54 (: 1970) ESS: 01/23 Neck Circ. (cm): 37.0 Height (cm): 154.9 Weight (kg): 70.2 BMI: 29.3 Referring Provider: MICHELLE BECERRIL Mailcode: Sleep history: The patient is a [...] Desyrel Sleep procedure: PSG 4 or more [facility] ([id number]) Procedure: The study was attended continuously by a cytology technologist. The monitored parameters included: left (E1-M2) [...] Respirator (more content not included)... SLEEP LAB [facility] Orthopedic Visit Reporton Orthopedic Visit Report [facility] [address] [place] [address] OFFICE VISIT Date of Service: 12/09/24 MR#: [id number] Acct: [id number] Name: ALLIE RUTLEDGE Rep #: [id number] : 1970 Provider: Dr. Phillip goldman DO Age/Sex: 54/F Location: [facility] Status: Signed Intake Vital Signs 11/24/24 15:06 [...] QDAY 12/09/24 12/09/24 H istory omega-3 720 cb-zhi-ouz-fish cap PO 12/09/24 12/09/24 History oil-vit D3 [...] made by me, Dr. Phillip Pozo, DO 12/09/24818. Part of today???s visit was documented by Bianka Cardoza ATC, acting as scribe. ALLIE RUTLEDGE is a 54 year old F here [...] Right Shoulde (more content not included)... Normal [facility] 12-07-2024 [facility] Telephone (INTMWS) ALLIE RUTLEDGE ([id number]) 1970 F Date Time Provider Department 12/07/24 IFEOMA DAVIS INTWS During your visit today, [...] 5:37 PM Signed Rx for her. Regards, Ifeoma BatistaJanet womack JOLIE 12/08/2024 10:05 AM Signed Called and left message for patient, on self identified voicemail Janet MezaJOLIE December 08, 2024 10:05 AM Allergies As [...] Date Reviewed: 11/19/2024 Reviewed by: David Anna APRN.TALENT MANAGER - Fully Assessed Reason for Visit: Patient [...] 11/11/2014 H (more content not included)... [facility] Tele[facility] (SLEWST) ALLIE RUTLEDGE ([id number]) 1970 F Date Time Provider Department 12/01/24 MICHELLE BECERRIL During your visit today, we recorded the following information about you: Dara Valdez RN 12/01/2024 8:59 AM Signed Patient calls and states that she was at [facility] for Sleep study on 11/17/2024. Patient asking about results for sleep study. Please review and advise, BRITTANY Benson Ashley 12/07/2024 10:05 AM Signed Patient calling again for status update on sleep study results. PSS reviewed provider's response in unread [employer] Message. Patient asking to be contacted as soon as results are in. She states she is struggling to sleep. Jackie Freitas MA 12/07/2024 11:36 AM Signed This was ordered by sleep provider: Michelle Becerril. Results must come from ordering provider. Once sleep provider receives results the sleep office will contact patient. RISHI Kim Gillian, OCCA 12/11/2024 11:25 AM Signed PSG not yet resulted as of 12/11. JASMINE Lopez Krystle, RN 12/16/2024 10:38 AM Signed Patient calls to check on status of sleep study results. Noted PSG not yet resulted. Patient to contact [facility] to enquire why it is [...] Date Reviewed: 11/19/2024 Reviewed by: David Anna APRN.TALENT MANAGER - Fully Assessed Reason for Visit: Results [95] Prescriptions as of 12/17/2024 - CPAP/BIPAP/OTHER APAP 5-18 cmH2O [facility] - zolpidem (AMBIEN) 5 mg tablet Take [...] Noted Resol (more content not included)... Normal [facility] HIP, UNI W/ Pelvis 2-3 Views on 11-24-2024 HIP, UNI W/ Pelvis 2-3 Views [facility] Imaging Services [address] [place] [address] HIP, UNI W/ Pelvis 2-3 Views MR#: [id number] Acct: [id number] Name: ALLIE RUTLEDGE ANN Rep #: [id number] : 1970 F 54 From: Danie Salvador MD PCP: Dr. Ifeoma Davis MD Status: DEP AMB Study: HIP, UNI W/ Pelvis 2-3 Views Date of Exam: Exam# [id number] Ordering Dr: Allie Prakash PROCEDURE: HIP, UNI [...] central to lateral joint space narrowing near dvcv-ft-sllr contact. Lateral acetabular osteophyte formation and large femoral head osteophytes with buttressing. Right hip mild to moderate appearing osteoarthrosis with fzis-vs-xfekfplk lateral joint space narrowing and small osteophyte formation. No fracture or dislocation identified. RAD/HIP, UNI W/ Pelvis 2-3 Views IMPRESSION: Ybks-gluotgv-hzxm-right appearing osteoarthrosis as described above with associated appearing left downward pelvic tilt. Reading Location: [id number] CC: Allie Prakash; Dr. Ifeoma Davis MD Slumber Room Attendant: Signed Normal [facility] Hip Min 2 Views (Portable)on 11-24-2024 Hip Min 2 Views (Portable) [facility] Imaging Services [address] [place] [place], [place] [address] Hip Min 2 Views (Portable) MR#: [id number] Acct: [id number] Name: AAMIRALLIEDEANNA Rep #: [id number] : 1970 F 54 From: Laya Tay PCP: Dr. Ifeoma Davis MD Status: REG CLI Study: Hip Min 2 Views (Portable) Date of Exam: 11/24 Exam# [id number] Ordering Dr: Allie Prakash PROCEDURE: HIP MIN [...] of the left groin region. Reading Location: [id number] CC: Allie Prakash; Dr. Ifeoma Davis MD Slumber Room Attendant: Signed Normal [facility] CNPNon 11-20-2024 CNPN Telephone (MARVINWS) ALLIE RUTLEDGE ([id number]) 1970 F [place] Date Time Provider Department [...] mL/min/1.73m? 71 Legend: (L) Low David Anna APRN.TALENT MANAGER 11/20/2024 12:35 PM Signed Glucose is only slightly low and I am not concerned with that. The potassium is probably from decreased dietary intake and being on lisinopril hydrochlorothiazide for her blood pressure. I would recommend we start a daily potassium supplement an recheck in 1 week after starting the supplement. Take with food to decrease nausea. Thank you David Anna APRN.Spring Pierce RN 11/20/2024 12:46 PM Signed Pt called and [...] Date Reviewed: 11/19/2024 Reviewed by: David Anna APRN.TALENT MANAGER - Fully Assessed Reason for Visit: Results, Lab [1201] Primary Visit Diagnosis:Hypokalemia [E87.6] Order(s):potassium chloride (K-TAB) 10 mEq tabletTake 1 tablet by mouth once daily.Disp: 30 tabletRfl: 1 BASIC METABOLIC PANEL [SQBMP] Order #: [id number] FUTURE Prescriptions as of 11/20/2024 - potassium [...] as of (more content not included)... Normal [facility] Basic metabolic 2000 panelon 11-19-2024 Anion gap [Moles/Vol] 14 mmol/L Normal 8-15 [facility] Comment on above: Order Comment: Speci men Type: BLOOD SPECIMENOrdering Facility: [facility] Address: [address] [place] [address] Performed By: #### 2 4321-2 ####[facility] LABCLIA [id number] [place] [address] [place] Calcium [Mass/Vol] 9.7 mg/dL Normal 8.5-10.2 [facility] Comment on above: Order Comment: Speci men Type: BLOOD SPECIMENOrdering Facility: [facility] Address: [address] [place] [address] Performed By: #### 2 4321-2 ####[facility] LABCLIA [id number] [place] [address] [place] Chloride [Moles/Vol] 99 mmol/L Normal 98-107 [facility] Comment on above: Order Comment: Speci men Type: BLOOD SPECIMENOrdering Facility: [facility] Address: [address] [place] [address] Performed By: #### 2 4321-2 ####[facility] LABCLIA [id number] [address] [address] [place] CO2 [Moles/Vol] 27 mmol/L Normal 22-30 [facility] Comment on above: Order Comment: Speci men Type: BLOOD SPECIMENOrdering Facility: [facility] Address: [address] [place] [address] Performed By: #### 2 4321-2 ####[facility] LABIA [id number] [address] STATES OF [facility] Creatinine [Mass/Vol] 0.95 mg/dL Normal 0.58-0.96 [facility] Comment on above: Order Comment: Speci men Type: BLOOD SPECIMENOrdering Facility: [facility] Address: [address] [place] [address] Performed By: #### 2 4321-2 ####[facility] LABIA [id number] [address] Creatinine and Glomerular filtration rate.predicted panel (S/P/Bld) 71 mL/min/1.73m??? Normal >=60 [facility] Comment on above: Order Comment: Speci men Type: BLOOD SPECIMENOrdering Facility: [facility] Address: [address] [place] [address] Result Comment: Zaria mated Glomerular Filtration Rate [...] actual GFR. Performed By: #### 2 4321-2 ####[facility] LABCLIA [id number] [place] [address] [place] Glucose [Mass/Vol] 73 mg/dL Low 74-99 [facility] Comment on above: Order Comment: Speci men Type: BLOOD SPECIMENOrdering Facility: [facility] Address: [address] [place] [address] Result Comment: The [place] Diabetes Association (ADA) provides guidance for cutoff [...] Standards of Medical Care in Diabetes 2016, [place] Diabetes Association. Diabetes Care. 2016.39(Suppl 1). Performed By: #### 2 4321-2 ####[facility] LABIA [id number] [place] [address] [place] Potassium [Moles/Vol] 3.5 mmol/L Low 3.7-5.1 [facility] Comment on above: Order Comment: Speci men Type: BLOOD SPECIMENOrdering Facility: [facility] Address: [address] [place] [address] Performed By: #### 2 4321-2 ####[facility] LABIA [id number] [place] [address] [place] Sodium [Moles/Vol] 140 mmol/L Normal 136-144 [facility] Comment on above: Order Comment: Speci men Type: BLOOD SPECIMENOrdering Facility: [facility] Address: [address] [place] [address] Performed By: #### 2 4321-2 ####[facility] LABIA [id number] [place] [address] [place] Urea nitrogen [Mass/Vol] 12 mg/dL Normal 7-21 [facility] Comment on above: Order Comment: Speci men Type: BLOOD SPECIMENOrdering Facility: [facility] Address: [address] [place] [address] Performed By: #### 2 4321-2 ####[facility] LABCLIA [id number] [place] [address] [place] CNOVon 11-19-2024 CNOV Office Visit (INTMWS ) AAMIRALLIE HOLLAND ([id number]) 1970 F Date Time Provider Department 11/19/24 1:00 PM DAVID ANNA INTMWS During your visit today, we recorded the following information about you: David Anna APRN.TALENT MANAGER 11/19/2024 2:20 PM Signed CC: Patient presents with: Recheck: 2 week follow up HPI Allie Rutledge is a 54 year old female who [...] ago for consistent elevated blood pressure. Ms. Rutledge denies headache, chest pain, palpitations, dyspnea, and [...] Dr. Cynthia Ramos M.D. [place] [address] ALLERGIES Ultram [Tramadol Hcl], Darvocet A500 [Propoxyphene [...] progesterone micr (more content not included)... Normal [facility] CNOVon 11-17-2024 CNOV Office Visit (LDNESL ) ALLIE RUTLEDGE ([id number]) 1970 F Date Time Provider Department 11/17/24 9:00 PM SLEEP LAB LODI BED 1 LDNESL During your visit today, we recorded the following information about you: Referring Provider: KIMBERLEY BYRD [[id number]] Allergies As of Date: 11/17/2024 Noted Allergy [...] disorder) [G47.61] Primary hypertension [I10] Order(s):POLYSOMNOGRAM (PSG) [7283232] Order #: [id number]. #:[id number] Prescriptions as of 01/05/2025 - meloxicam (MOBIC) [...] once daily. 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 Normal [facility] POLYSOMNOGRAM (PSG)/HOME SLE EP APNEA TEST (HSAT)on 11-17-2024 POLYSOMNOGRAM (PSG)/HOME SLEEP APNEA TEST (HSAT) [facility] [address], [place] [address] ; PSG Study Report Name: ALLIE RUTLEDGE Date of Study: 11/17/2024 [facility]#: [id number] Age: 54 (: 1970) ESS: 01/23 Neck Circ. (cm): 37.0 Height (cm): 154.9 Weight (kg): 70.2 BMI: 29.3 Referring Provider: MICHELLE BECERRIL Mailcode: Sleep history: The patient is a [...] Desyrel Sleep procedure: PSG 4 or more [facility] ([id number]) Procedure: The study was attended continuously by a cytology technologist. The monitored parameters included: left (E1-M2) [...] from s (more content not included)... Normal [facility] 25([place])D3 [facility] 2024 25-hydroxyvitamin D3 [Mass/Vol] 42.9 ng/mL Normal 31.0-80.0 [facility] Comment on above: Order Comment: Speci men Type: BLOOD SPECIMEN Ordering Facility: [facility] Address: [address] [place] [address] Result Comment: Clas sification of 25 [place] Vitamin D status: Deficiency/Insufficiency: < or = 30 ng/ml. Sufficiency/Optimal Levels: 31-80 ng/mL Toxicity: > 100 ng/mL. Test performed by chemiluminescent immunoassay. Performed By: #### 1 989-3 #### [facility] CLIA [id number] [address] [place], [place] [address] [place] [address] [place] CBC W Auto Differential pane l (Bld)on 11-03-2024 Basophils (Bld) [#/Vol] 0.03 10*3/uL [facility] Basophils/100 WBC (Bld) 0.6 % [facility] Differential cell count method Nom (Bld) Auto [facility] Eosinophils (Bld) [#/Vol] 0.2 10*3/uL [facility] Eosinophils/100 WBC (Bld) 3.7 % [facility] Erythrocyte distribution width (RBC) [Ratio] 14 % 11.5 - 15.0 % [facility] Hematocrit (Bld) [Volume fraction] 37.9 % 36.0 - 46.0 % [facility] Hemoglobin (Bld) [Mass/Vol] 12 g/dL 11.5 - 15.5 g/dL [facility] Immature granulocytes (Bld) [#/Vol] [facility] Immature granulocytes/100 WBC (Bld) 0.2 % [facility] Lymphocytes (Bld) [#/Vol] 1.2 10*3/uL [facility] Lymphocytes/100 WBC (Bld) 22.2 % [facility] MCH (RBC) [Entitic mass] 29.3 pg 26.0 - 34.0 pg [facility] MCHC (RBC) [Mass/Vol] 31.7 g/dL 30.5 - 36.0 g/dL [facility] MCV (RBC) [Entitic vol] 92.4 fL 80.0 - 100.0 fL [facility] Monocytes (Bld) [#/Vol] 0.65 10*3/uL [facility] Monocytes/100 WBC (Bld) 12 % [facility] Neutrophils (Bld) [#/Vol] 3.31 10*3/uL [facility] Neutrophils/100 WBC (Bld) 61.3 % [facility] Nucleated RBC (Bld) [#/Vol] [facility] Nucleated RBC/100 WBC (Bld) [Ratio] 0 % /100 WBC [facility] Platelet mean volume (Bld) [Entitic vol] 11 fL 9.0 - 12.7 fL [facility] Platelets (Bld) [#/Vol] 334 10*3/uL [facility] RBC (Bld) [#/Vol] 4.1 10*6/uL 3.90 - 5.2 0 m/uL [facility] WBC (Bld) [#/Vol] 5.4 10*3/uL [facility] Basophils (Bld) [#/Vol] 0.03 10*3/uL Normal <0.11 [facility] Comment on above: Order Comment: Speci men Type: BLOOD SPECIMEN Ordering Facility: [facility] Address: [address] [place], [place] [address] Performed By: #### 5 7021-8 #### [facility] CLIA [id number] [address] Basophils/100 WBC (Bld) 0.6 % Normal [facility] Comment on above: Order Comment: Speci men Type: BLOOD SPECIMEN Ordering Facility: [facility] Address: [address] [place] [address] Performed By: #### 5 7021-8 #### [facility] CLIA [id number] [address] OF [facility] Differential cell count method Nom (Bld) Auto Normal [facility] Comment on above: Order Comment: Speci men Type: BLOOD SPECIMEN Ordering Facility: [facility] Address: [address] [place] [address] Performed By: #### 5 7021-8 #### [facility] CLIA [id number] [address] [place] Eosinophils (Bld) [#/Vol] 0.20 10*3/uL Normal <0.46 [facility] Comment on above: Order Comment: Speci men Type: BLOOD SPECIMEN Ordering Facility: [facility] Address: [address] [place] [address] Performed By: #### 5 7021-8 #### [facility] CLIA [id number] [address] Eosinophils/100 WBC (Bld) 3.7 % Normal [facility] Comment on above: Order Comment: Speci men Type: BLOOD SPECIMEN Ordering Facility: [facility] Address: [address] [place] [address] Performed By: #### 5 7021-8 #### [facility] CLIA [id number] [address] [place] Erythrocyte distribution width (RBC) [Ratio] 14.0 % Normal 11.5-15.0 [facility] Comment on above: Order Comment: Speci men Type: BLOOD SPECIMEN Ordering Facility: [facility] Address: [address] [place] [address] Performed By: #### 5 7021-8 #### [facility] CLIA [id number] [address] [place] Hematocrit (Bld) [Volume fraction] 37.9 % Normal 36.0-46.0 [facility] Comment on above: Order Comment: Speci men Type: BLOOD SPECIMEN Ordering Facility: [facility] Address: [address] [place] [address] Performed By: #### 5 7021-8 #### [facility] CLIA [id number] [address] [place] Hemoglobin (Bld) [Mass/Vol] 12.0 g/dL Normal 11.5-15.5 [facility] Comment on above: Order Comment: Speci men Type: BLOOD SPECIMEN Ordering Facility: [facility] Address: [address] [place] [address] Performed By: #### 5 7021-8 #### [facility] CLIA [id number] [address] [place] Immature granulocytes (Bld) [#/Vol] 10*3/uL Normal <0.10 [facility] Comment on above: Order Comment: Speci men Type: BLOOD SPECIMEN Ordering Facility: [facility] Address: [address] [place] [address] Performed By: #### 5 7021-8 #### [facility] CLIA [id number] [address] [place] Immature granulocytes/100 WBC (Bld) 0.2 % Normal [facility] Comment on above: Order Comment: Speci men Type: BLOOD SPECIMEN Ordering Facility: [facility] Address: [address] [place] [address] Performed By: #### 5 7021-8 #### [facility] CLIA [id number] [address] [place] Lymphocytes (Bld) [#/Vol] 1.20 10*3/uL Normal 1.00-4.00 [facility] Comment on above: Order Comment: Speci men Type: BLOOD SPECIMEN Ordering Facility: [facility] Address: [address] [place] [address] Performed By: #### 5 7021-8 #### [facility] CLIA [id number] [address] Lymphocytes/100 WBC (Bld) 22.2 % Normal [facility] Comment on above: Order Comment: Speci men Type: BLOOD SPECIMEN Ordering Facility: [facility] Address: [address] [place] [address] Performed By: #### 5 7021-8 #### [facility] CLIA [id number] [address] [facility] MCH (RBC) [Entitic mass] 29.3 pg Normal 26.0-34.0 [facility] Comment on above: Order Comment: Speci men Type: BLOOD SPECIMEN Ordering Facility: [facility] Address: [address] [place] [address] Performed By: #### 5 7021-8 #### [facility] CLIA [id number] [address] [place] MCHC (RBC) [Mass/Vol] 31.7 g/dL Normal 30.5-36.0 [facility] Comment on above: Order Comment: Speci men Type: BLOOD SPECIMEN Ordering Facility: [facility] Address: [address] [place] [address] Performed By: #### 5 7021-8 #### [facility] CLIA [id number] [address] [place] MCV (RBC) [Entitic vol] 92.4 fL Normal 80.0-100.0 [facility] Comment on above: Order Comment: Speci men Type: BLOOD SPECIMEN Ordering Facility: [facility] Address: [address] [place] [address] Performed By: #### 5 7021-8 #### [facility] CLIA [id number] [address] [place] Monocytes (Bld) [#/Vol] 0.65 10*3/uL Normal <0.87 [facility] Comment on above: Order Comment: Speci men Type: BLOOD SPECIMEN Ordering Facility: [facility] Address: [address] [place] [address] Performed By: #### 5 7021-8 #### [facility] CLIA [id number] [address] [place] Monocytes/100 WBC (Bld) 12.0 % Normal [facility] Comment on above: Order Comment: Speci men Type: BLOOD SPECIMEN Ordering Facility: [facility] Address: [address] [place] [address] Performed By: #### 5 7021-8 #### [facility] CLIA [id number] 1 [place] [address] [place] Neutrophils (Bld) [#/Vol] 3.31 10*3/uL Normal 1.45-7.50 [facility] Comment on above: Order Comment: Speci men Type: BLOOD SPECIMEN Ordering Facility: [facility] Address: [address] [place] [address] Performed By: #### 5 7021-8 #### [facility] CLIA [id number] [address] [place] Neutrophils/100 WBC (Bld) 61.3 % Normal [facility] Comment on above: Order Comment: Speci men Type: BLOOD SPECIMEN Ordering Facility: [facility] Address: [address] [place] [address] Performed By: #### 5 7021-8 #### [facility] CLIA [id number] 1 [place] [address] [place] Nucleated RBC (Bld) [#/Vol] 10*3/uL Normal <0.01 [facility] Comment on above: Order Comment: Speci men Type: BLOOD SPECIMEN Ordering Facility: [facility] Address: [address] [place] [address] Performed By: #### 5 7021-8 #### [facility] CLIA [id number] 1 [place] [address] [place] Nucleated RBC/100 WBC (Bld) [Ratio] 0.0 /100 WBC Normal [facility] Comment on above: Order Comment: Speci men Type: BLOOD SPECIMEN Ordering Facility: [facility] Address: [facility] [place] [address] Performed By: #### 5 7021-8 #### [facility] CLIA [id number] [address] [place] Platelet mean volume (Bld) [Entitic vol] 11.0 fL Normal 9.0-12.7 [facility] Comment on above: Order Comment: Speci men Type: BLOOD SPECIMEN Ordering Facility: [facility] Address: [address] [place] [address] Performed By: #### 5 7021-8 #### [facility] CLIA [id number] [address] [place] Platelets (Bld) [#/Vol] 334 10*3/uL Normal 150-400 [facility] Comment on above: Order Comment: Speci men Type: BLOOD SPECIMEN Ordering Facility: [facility] Address: [address] [place] [address] Performed By: #### 5 7021-8 #### [facility] CLIA [id number] 1 [place] [address] [place] RBC (Bld) [#/Vol] 4.10 10*6/uL Normal 3.90-5.20 [facility] Comment on above: Order Comment: Speci men Type: BLOOD SPECIMEN Ordering Facility: [facility] Address: [address] [place] [address] Performed By: #### 5 7021-8 #### [facility] CLIA [id number] 1 [place] [address] [place] WBC (Bld) [#/Vol] 5.40 10*3/uL Normal 3.70-11.00 [facility] Comment on above: Order Comment: Speci men Type: BLOOD SPECIMEN Ordering Facility: [facility] Address: [address] [place] [address] Performed By: #### 5 7021-8 #### [facility] [id number] [address] OF [facility] CNOVon 11-03-2024 CNOV Office Visit (INTMWS ) ALLIE RUTLEDGE ([id number]) 1970 F [place] Date Time Provider Department 11/03/24 2:00 PM IFEOMA DAVIS INTMWS During your visit today, we recorded the following information about you: Pulse Blood pressure Weight Height 98/minute 114/78 70.2 kg 1.549 m Ifeoma Davis MD 11/03/2024 5:33 PM Signed CC: Patient presents with: Recheck: 10/31/24 UA done at urgent care, always tired HPI Allie Rutledge is a 53 year old female who presents today for 6-month follow-up. 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 Dr. Sparks is her supervisor [employer] auxiliaries/glau[employer] a specialist that she sees every 3 months. States she has not had a bleed in her eye at a long time, but at the same time she states she wouldn't see it at this point. Slowly progressive loss of peripheral vision. Patient also reports that she has issues with calcified joints/arthritis. She has moved back to [place], so she can use the [employer] for going places, [employer]. She is engaged in a lot of activities, and is giving back to the community as much as she can in every way she can. She has a son in [place], and a brother near by. Her eyes [...] extremely active in the community. Takes the [employer] bus to [employer] every Saturday, as well as to her [employer] studies throughout the week. States these activities [...] available full-time. Needs include home health aid, longterm if applicable - says her boyfriend could [...] Had worked with an OT previously through [facility] in [place] previously who assisted with various techniques and [...] feel ove (more content not included)... Normal [facility] Ferritin SerPl-ncon 2024 Ferritin [Mass/Vol] 29.7 ng/mL Normal 14.7-205.1 [facility] Comment on above: Order Comment: Brandan eaton Type: BLOOD SPECIMEN Ordering Facility: [facility] Address: [address] [place] [address] Performed By: #### 5 0190-8, 2276-4, 3024-7, 3016-3 #### [facility] CLIA [id number] 1 [place] [address] [place] Iron and Iron binding capaci ty panelon 11-03-2024 Iron [Mass/Vol] 93 ug/dL Normal 41-186 [facility] Comment on above: Order Comment: Brandan eaton Type: BLOOD SPECIMEN Ordering Facility: [facility] Address: [address] [place] [address] Performed By: #### 5 0190-8, 2276-4, 3024-7, 3016-3 #### [facility] CLIA [id number] [address] [place] Iron binding capacity [Mass/Vol] 384 ug/dL Normal 232-386 [facility] Comment on above: Order Comment: Speci men Type: BLOOD SPECIMEN Ordering Facility: [facility] Address: [address] [place] [address] Performed By: #### 5 0190-8, 2276-4, 3024-7, 3016-3 #### [facility] CLIA [id number] [address] OF [facility] Iron saturation [Mass fraction] 24.2 % Normal 15.0-57.0 [facility] Comment on above: Order Comment: Speci men Type: BLOOD SPECIMEN Ordering Facility: [facility] Address: [address] [place] [address] Performed By: #### 5 0190-8, 2276-4, 3024-7, 3016-3 #### [facility] CLIA [id number] [address] OF [place] T4 Free SerPl-mCncon 025 Free T4 [Mass/Vol] 0.9 ng/dL Normal 0.9-1.7 [facility] Comment on above: Order Comment: Speci men Type: BLOOD SPECIMEN Ordering Facility: [facility] Address: [address] [place] [address] Performed By: #### 5 0190-8, 2276-4, 3024-7, 3016-3 #### [facility] CLIA [id number] [address] [place] TSH SerPl-aCncon 11-03-2024 TSH Qn 0.745 m[IU]/L Normal 0.270-4.200 [facility] Comment on above: Order Comment: Speci men Type: BLOOD SPECIMENOrdering Facility: [facility] Address: [address] [place] [address] Performed By: #### 5 0190-8, 2276-4, 3024-7, 3016-3 ####[facility] [id number] [place] [address] [place] Vit B12 SerPl-mCncon 025 Cobalamin (Vitamin B12) [Mass/Vol] pg/mL High 232-1242 [facility] Comment on above: Order Comment: Speci men Type: BLOOD SPECIMEN Ordering Facility: [facility] Address: [address] [place] [address] Performed By: #### 5 7021-8 #### [facility] CLIA [id number] [address] [id number] [place] Bacteria Ur Culton 5 Bacteria identified Cx Nom (U) ORGANISM ID: 1 <10,000 CFU/ml Lactose positive gram negative bacilli Insignificant colony count. No further workup. Normal [facility] Comment on above: Performed By: #### 6 30-4 ####[facility] [id number] [place] [address] [place] CNOVon 10-31-2024 CNOV Office Visit ([facility] ) ALLIE RUTLEDGE ([id number]) 1970 F Date Time Provider Department 10/31/24 1:00 PM CHANTAL SEGURA [facility] During your visit today, we recorded the following information about you: Temperature Pulse Respiration Blood pressure 97.1 degrees 97/minute 18/minute 141/88 Weight 69 kg Chantal Segura APRN.TALENT MANAGER 10/31/2024 1:22 PM Signed Subjective The history is provided by the patient. No educational speech language clinician was used. HPI Allie Rutledge is a 54 year old female who [...] have confirmed and edited as necessary, the [facility] Review of Systems Constitutional: Negative for [...] Itching Date Reviewed: 10/31/2024 Reviewed by: Chantal Segura APRN.CNP - Fully Assessed Reason for Visit: Urinary Problem [252] Cmt: Pressure x 1 day Primary Visit Diagnosis:Dysuria [R30.0] Other Visit Diagnosis:Acute lower UTI [N39.0] Order(s):BACTERIAL CULTURE, URINE [SQURCUL] Order #: [id number] BACTERIAL CULTURE, URINE [SQURCUL] Order #: [id number]. #:[id number] UA DIP, URINE (POC) [5528250] Order #: [id number]. #:[id number] cephALEXin (KEFLEX) 500 mg capsuleTake 1 capsule by mouth two times a day for 5 days.Disp: 10 capsul (more content not included)... Normal [facility] UA DIP, URINE (POC)on 2024 BILIRUBIN UA (POCT) Small Abnormal Negative [place] [facility] CLARITY UA (POCT) Clear [facility] COLOR UA (POCT) Red [facility] GLUCOSE UA (POCT) 100 mg/dL Abnormal Negative [facility] Hemoglobin Ql (U) Large Abnormal Negative [facility] Interpretation and review of laboratory results Abnormal [facility] KETONE UA (POCT) Trace Negative mg/dL [facility] LEUKOCYTES UA (POCT) Large Abnormal Negative [facility] NITRITE UA (POCT) Positive Abnormal Negative [facility] PH UA (POCT) 6 4.5 - 8.0 [facility] Protein Ql (U) >=300 Abnormal Negative mg/dL [facility] SPECIFIC GRAVITY UA (POCT) 1.01 1.005 - 1.030 [facility] UROBILINOGEN UA (POCT) 2 Abnormal Normal E.U./dL [facility] Location:[address], [address] [place] [address] POINT OF CARE [facility] GENOVEVA SCREENINGon 10-21-2024 GENOVEVA SCREENING * * *Final Report* * * DATE OF EXAM: Oct 21 2024 2:30PM [facility] - [facility] SCREENING / PROCEDURE REASON: multiple diagnoses * * * * Physician Interpretation * * * * RESULT: [facility] [place] [address] [place] [address] #[id number] - [facility] SCREENING HISTORY: 54 year-old patient seen for [...] has dense breast tissue. Interpreting Radiologist: Marnie Maki M.D. Electronically signed on: 10/22/2024 Slumber Room Attendant: RMEA Transcribe Date/Time: Oct 21 2024 2:00P Dictated by: MARNIE MAKI MD This examination was interpreted and the report reviewed and electronically signed by: MARNIE MAKI MD on Oct 22 2024 9:04AM EST [id number] Normal [facility] OCT MACULA CIRRUS OU (BOTH E YES)on 10-13-2024 [facility] Radiology Study observation (narrative) [facility] CNOVon 10-12-2024 CNOV Office Visit (INTMWS ) ALLIE RUTLEDGE ([id number]) 1970 F Date Time Provider Department 10/12/24 3:00 PM IFEOMA DAVIS INTMWS During your visit today, we recorded the following information about you: Temperature Pulse Respiration Blood pressure 96.9 degrees 118/minute 16/minute 106/63 Weight 71.5 kg Ifeoma Davis MD 10/12/2024 5:49 PM Addendum CC: Patient presents with: Follow Up For: Memory impairment HPI Allie Rutledge is a 53 year old female who presents today for 6-month follow-up. 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 Dr. Sparks is her supervisor [employer]au[employer] a specialist that she sees every 3 months. States she has not had a bleed in her eye at a long time, but at the same time she states she wouldn't see it at this point. Slowly progressive loss of peripheral vision. Patient also reports that she has issues with calcified joints/arthritis. She has moved back to [place], so she can use the [employer] for going places, [employer]. She is engaged in a lot of activities, and is giving back to the community as much as she can in every way she can. She has a son in [place], and a brother near by. Her eyes [...] extremely active in the community. Takes the [employer] bus to [employer] every Saturday, [...] available full-time. Needs include home health aid, longterm if applicable - says her boyfriend could [...] Had worked with an OT previously through [facility] in [place] previously who assisted with various techniques and [...] She st (more content not included)... Normal [facility] CNOVon 10-07-2024 CNOV Office Visit (INTMWS ) ALLIE RUTLEDGE ([id number]) 1970 F [place] Date Time Provider Department 10/07/24 6:20 PM CALLI GERBER INTMWS During your visit today, we recorded the following information about you: Temperature Pulse Respiration Blood pressure 98.2 degrees 103/minute 16/minute 124/62 Weight 73 kg Calli Gerber, [employer].[facility] 10/07/2024 7:02 PM Signed CC: Patient presents with: Memory Loss: Body aches, dry mouth HPI Allie Rutledge is a 54 year old female who [...] Dr. Cynthia Ramos M.D. [place] [address] ALLERGIES Ultram [Tramadol Hcl], Darvocet A500 [Propoxyphene [...] on 1 (more content not included)... Normal [facility]07[facility]20[facility] ALL[facility] ([id number]) 1970 F Date Time Provider Department 10/07/24 MICHELLE BECERRIL During your visit today, we recorded the [...] Please review and advise, BRITTANY Benson Rebecca, MURTAZA.[facility] 10/08/2024 12:55 PM Signed PSG ordered. Please assist pt in scheduling it at [facility]. Michelle Becerril APRN.Jackie Monge MA 10/12/2024 3:28 PM Signed [...] Itching Date Reviewed: 10/07/2024 Reviewed by: Calli Gerber APRN.TALENT MANAGER - Fully Assessed Reason for Visit: Patient Question [1477] Primary Visit Diagnosis:Snoring [R06.83] Other Visit Diagnoses:Excessive daytime sleepiness [G47.19] Non-restorative sleep [G47.8] PLMD (periodic limb movement disorder) [G47.61] Primary hypertension [I10] Order(s):POLYSOMNOGRAM (PSG) [2004784] Order #: [id number] FUTURE Prescriptions as of 10/12/2024 - amLODIPine [...] DELIA Rosario Problem List As Of Date 10/07/2024 Noted Resolved PATELLAR TENDINITIS [M76.50] 03/12/2006 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] 11/11/2014 Macular degeneration [H35.30] 11/11/2014 Legally blind [H54.8] 11/11/2014 Hypertension [I10] 11/11/2014 Carotid atherosclerosis [I65.29] 11/15/2015 PAD (peripheral artery disease) (HCC) [I73.9] 11/15/2015 Aortic sclerosis (HCC) [FNF3533] 11/15/2015 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 [facility] ([id number]) 1970 F [place] Date Time Provider Department 10/07/24 IFEOMA DAVIS INTMWS During your visit today, [...] neck pain. Pt scheduled for apt today 2-5-25. 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 Normal [facility] CNOVon 09-29-2024 CNOV Office Visit (INTMWS ) ALLIE RUTLEDGE ([id number]) 1970 F [place] Date Time Provider Department 09/29/24 2:00 PM IFEOMA DAVIS INTMWS During your visit today, we recorded the following information about you: Pulse Respiration Blood pressure Weight 86/minute 16/minute 138/88 73 kg Ifeoma Davis MD 09/29/2024 5:40 PM Signed CC: Patient presents with: F/U 6 months HPI Allie Bustos Aamir is a 53 year old female who presents today for 6-month follow-up. 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 Dr. Sparks is her supervisor [employer]au[employer] a specialist that she sees every 3 months. States she has not had a bleed in her eye at a long time, but at the same time she states she wouldn't see it at this point. Slowly progressive loss of peripheral vision. Patient also reports that she has issues with calcified joints/arthritis. She has moved back to [place], so she can use the [employer] for going places, [employer]. She is engaged in a lot of activities, and is giving back to the community as much as she can in every way she can. She has a son in [place], and a brother near by. Her eyes [...] extremely active in the community. Takes the [employer] bus to [employer] every Saturday, as well as to her [employer] studies throughout the week. States these activities [...] available full-time. Needs include home health aid, longterm if applicable - says her boyfriend could [...] Had worked with an OT previously through [facility] in [place] previously who assisted with various techniques and [...] artery dise (more content not included)... Normal [facility] Cassi 09-25-2024 CNPN Telephone (SLEWST) ALLIE RUTLEDGE ([id number]) 1970 F Date Time Provider Department 09/25/24 MICHELLE BECERRIL SLEDERRICK During your visit today, we recorded the following information about you: Michelle Becerril APRN.CNP 09/25/2024 4:10 PM Signed Please CALL pt and tell her I reviewed her case with Dr Jiménez. --We looked at her [facility] sleep study report--Dr Jiménez believes she is [...] that would she consider going to a [facility] sleep lab? Michelle Becerril APRN.Letty Madrid LPN 09/25/2024 4:29 PM Signed TC to pt who had questions about flexeril, she has been taking it every night to see if it helps with the leg spasms. Wonders if she can still take this or if she will need to stop them. Is okay with increasing the gabapentin, uses [facility] in [place]. Aware we need to talk to Dr. Betancourt. Has upcoming appts with PCP and pain management. Is okay to do a sleep study using [facility] but is unable to travel out of town very far. JOLIE Taylor Rebecca, APRN.CNP 09/25/2024 4:36 PM Signed Please print my note and I'll write a msg to Dr Betancourt, we can fax him, then we'll let her know. We could use [facility] lab. She can still take flexeril. 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 Normal [facility] CNOVon 09-24-2024 CNOV Office Visit (SLEWST ) ALLIE RUTLEDGE ([id number]) 1970 F Date Time Provider Department 09/24/24 3:00 PM MICHELLE BECERRIL During your visit today, we recorded the following information about you: Pulse Blood pressure Weight 101/minute 122/81 72.7 kg Michelle Becerril APRN.TALENT MANAGER 09/25/2024 3:51 PM Addendum Addendum: I reviewed her case with Dr Jiménez. We looked at her [facility] sleep study report including hypnogram--Dr Jiménez believes she is having REM-related apneas and that her PLMs were under-scored. He recommends we try increasing gabapentin from 100 mg to 300 mg at HS--I will contact Dr Betancourt about that since he prescribes it. Will recommend she avoid benedryl. 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 Michelle Becerril APRN.[facility] New Patient Evaluation PATIENT NAME: Allie Rutledge DATE OF SERVICE: September 24, 2024 CONSULTING PROVIDER: Dr Davis REASON FOR CONSULT: sends the patient for an opinion about DAYSI, blindness. My findings and recommendations will be transmitted electronically via shared medical record to the consulting provider. HPI: Allie Rutledge is a 54 year old female. Sleep-related [...] gabapentin at HS. Had a PSG at [facility] -- didn't meet criteria for DAYSI using [...] night A Polysomnogram performed on 07/22/24 at [facility] revealed an AHI of 8.1 (3%) (her [...] essential hypertension (more content not included)... Normal [facility] CNOVon 09-15-2024 CNOV Office Visit (OBGYWM ) ALLIE RUTLEDGE ([id number]) 1970 F [place] Date Time Provider Department 09/15/24 10:00 AM DESTINEY PENDLETON OBGYWM During your visit today, we recorded the following information about you: Blood pressure Weight 118/66 71.7 kg Destiney Pendleton, MURTAZA.TALENT MANAGER 09/15/2024 10:57 AM Signed Allie Rutledge is a 54 year old female who [...] L3 SAB0 IAB0 Ectopic0 Multiple0 Live Births0 Statistical Secretary History LMP: Ablation Age at Menarche: Age at First : Age at Menopause: Statistical Secretary History Comments: Sexual Activity: Not Currently; Male [...] Dr. Cynthia Ramos M.D. [place] [address] FAMILY HISTORY Problem Relation Age of Onset Heart Father Age 61 Heart Maternal Grandfather Cancer Paternal Grandmother Breast Cancer Maternal Aunt 55 ovarian cancer Heart Son AL Ovarian cancer Maternal Grandmother Glaucoma No Family [...] daily. Us (more content not included)... Normal [facility] 09-15-2024 [facility] Telephone (OBGYWM) ALLIE RUTLEDGE ([id number]) 1970 F Date Time Provider Department 09/15/24 DESTINEY PENDLETON OBGYWM During your visit today, we recorded the following information about you: Deangelo Stephens MA 09/15/2024 2:37 PM Signed Received PA request for [employer]. PA submitted through [employer] and will await response from patients insurance. RISHI Rubalcava Morgan, MA 09/15/2024 2:47 PM Signed Patients [employer] was approved. 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 9:17am BP 155/82 HR 89 10:25am BP 146/88 HR 91 11:12am BP 158/88 HR 102 David Anna APRN.TALENT MANAGER 08/12/2024 1:31 PM Signed That is higher then we would like to see. I do not see anything in the chart instructing her to do so. What is going on that she was asked to do this and by whom? Thank you David Anna APRN.TALENT MANAGER Tori MoralesRISHI 08/12/2024 2:09 PM Signed Left message for return call. Virginia Lorenz MA 08/12/2024 2:31 PM Signed Spoke with patient regarding below. After reviewing, it looks like patient was called on 08/10 by Patient Outreach and patient outreach MA instructed patient to call in readings. See 08/10/24 patient outreach. RISHI Ambrosio Joy, APRN.TALENT MANAGER 08/13/2024 7:10 AM Signed She has an upcoming appointment with Dr. Davis next week. Have her take a few blood pressures different days after sitting to rest for a good 5 minutes and can bring readings to appointment to review with her. Thank you David Anna APRN.TALENT MANAGER Allergies As of Date: 08/12/2024 Noted Allergy [...] 11/15/2015 PAD (more content not included)... Normal [facility] 07-27-2024 CNPN Telephone (FAMPWS) ALLIE RUTLEDGE ([id number]) 1970 F Date Time Provider Department 07/27/24 [facility] During your visit today, we recorded the following information about you: Sarahi Dawkins LPN 07/27/2024 10:41 AM Signed Pt calls to report she had a sleep study done at [facility] and would like the results. Pt reports she cannot access the results. JOLIE Damico Joy, APRN.DEBORAH 07/27/2024 12:26 PM Signed We don't have the results either. Please get results then place on PCP desk to review. Thank you David Anna APRN.Virginia Ding MA 07/27/2024 1:06 PM Signed Printed from [employer] and placed on PCP desk. RISHI Ambrosio Chitra, MD 07/27/2024 6:34 PM Signed Please let patient know that she mild sleep apnea and she also likely has periodic limb movement disorder. The ideal treatment would be a CPAP machine. If she is willing to try it we will send her a CPAP machine and work with the [facility] to help her to use it. [...] LVM to schedule with sleep medicine Spring Peñaloza RN 08/05/2024 10:35 AM Signed Pt called in and reports she wasn't able to get in to sleep medicine until 10/07/24. Pt is wanting to get CPAP machine before then. I told her she would need to call her [employer] company and find out the DME they use and call us back. I said it looked like Dr Davis knew about the [facility] clinic to help her to use it as she is legally blind, so she would need to set that up. Pt states she is always so tired, and she doesn't want to wait until October to get it. Virginia Lorenz MA 08/05/2024 11:32 AM Signed Spoke with sleep/neuro nurse here in [facility]. [facility] clinic not at this location anymore. However, [employer] and [facility] can come to [...] [Q82.8] Order(s):CONSULT TO SLEEP MEDICINE - ADULT [[id number]] Order #: [id number]: 1 FUTURE Prescriptions as of 08/05/2024 - [...] B-12 ORA (more content not included)... Normal [facility] Cerv Spine 4 or 5 Viewson Cerv Spine 4 or 5 Views [facility] [address] [place] [address] Cerv Spine 4 or 5 Views MR#: [id number] Acct: [id number] Name: ALLIE RUTLEDGE ANN Rep #: [id number] : 1970 F 54 From: Henrik Cardona MD PCP: Dr. Ifeoma Davis MD Status: DEP AMB Study: Cerv Spine 4 or 5 Views Date of Exam: 07/15/24 Exam# [id number] Ordering Dr: Allie Prakash [id number] STUDY: X-RAY - CERVICAL SPINE REASON FOR [...] CC: Allie Prakash; Dr. Ifeoma Davis MD Slumber Room Attendant: Signed Normal [facility] 07-10-2024 CNPN Telephone (INTMWS) ALLIE RUTLEDGE ([id number]) 1970 F LV Date Time Provider Department 07/10/24 IFEOMA DAVIS INTMWS During your visit today, we recorded the following information about you: Angelica Arreola RN 07/10/2024 9:17 AM Signed [facility] Central Scheduling calling and states they have received a non-signed sleep study order for mutual patient. Requesting a signed order. Signed order faxed to [phone] as requested. BRITTANY De La Fuente Chitra, MD 07/10/2024 2:02 PM Signed Janet, Can you find out from [place] how she does it? She uses our orders and it works. Thank you Ifeoma Flores MD, Mary, LPN 07/10/2024 2:15 PM Signed Called Aimee Penn Sleep clinical education manager at [facility], stated should be able to use current order faxed. Stated would contact us if need something else. Janet Meza LPN July 10, 2024 2:15 PM Janet Meza LPN 07/10/2024 2:40 PM Signed Sleep clinic [facility] sent fax needed office visit with some support for sleep study. Nothing mentioned at last office visit. Janet Meza LPN July 10, 2024 2:40 PM Ifeoma Davis MD 07/10/2024 5:30 PM Signed I addend ed the note, please use the information there to for the sleep apnea testing. Regards, Virginia Montanez MD, MA 07/13/2024 11:57 AM Signed NOMI note faxed to [facility] as requested. 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 Normal [facility] Cassi 07-09-2024 [facility] Telephone (UCWSTR) ALLIE RUTLEDGE ([id number]) 1970 F LV Date Time Provider Department 07/09/24 ADRIANA VIDAL During your visit today, we recorded the following information about you: Adriana Vidal APRN.TALENT MANAGER 07/09/2024 7:17 AM Signed Please notify that covid/flu/rsv testing negative. Continue with plan of care as discussed during visit. Judith Quach LPN 07/09/2024 7:30 AM Signed Patient given results and verbalized understanding of instructions given. 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] 04/15/2017 [...] left eye,*11/15/2022 12/29/2022 Encounter Status:Closed by JUDITH QUACH on 07/09/24 [facility] CNOVon 07-08-2024 CNOV Office Visit (UCWSTR ) ALLIE RUTLEDGE ([id number]) 1970 F LV Date Time Provider Department 07/08/24 5:45 PM LETTY SILVA During your visit today, we recorded the following information about you: Temperature Pulse Respiration Blood pressure 98.4 degrees 109/minute 18/minute 128/82 Weight 69.3 kg Lowell Kelly APRN.TALENT MANAGER 07/08/2024 5:47 PM Signed CC: Patient presents with: Headache: [place], bodyaches, fatigue x 3 days HPI: Allie Rutledge is a 54 year old female who [...] Dr. Cynthia Ramos M.D. S [place] [id number] ALLERGIES Ultram [Tramadol Hcl], Darvocet A500 [Propoxyphene [...] tablet Mckay (more content not included)... Normal [facility] COVID AND INFLUENZA A/B AND RSV PCR, ROUTINEon 07-08-2024 SARS-CoV-2 (COVID-19) RNA SUKUMAR+probe Ql (Unsp spec) SARS-COV-2 (AGENT OF COVID-19) RNA: Not detected INFLUENZA A RNA: Not detected INFLUENZA B RNA: Not detected RESPIRATORY SYNCYTIAL VIRUS (RSV) RNA: Not detected Normal [facility] Comment on above: Performed By: #### 5 [id number] #### [facility] [id number] [address] [place] [address] [facility] ALLIE RUTLEDGE ([id number]) 1970 F Date Time Provider Department 07/07/24 [facility] During your visit today, we recorded the following information about you: Myra Isidro 07/07/2024 9:56 AM Signed [facility] is calling Ifeoma Davis MD today to [...] calling: self Call patient at: at home [phone] (home) [phone] (cell) Was an appointment scheduled: No Closing statement: Results or non-symptom based questions: Thank you for calling [facility], your call will be returned within the next business day. Myra Deal [facility] Ifeoma Davis MD 07/07/2024 5:15 PM Signed Would she be willing for an inhouse test? Due to her blindness? Regards, Clint Bauer MD, RN 07/08/2024 9:52 AM Signed Phoned pt. No answer. No voicemail. Angelica Arreola RN 07/08/2024 11:09 AM Signed Patient returned [...] lab. Yaya may be easier for her. RegardsIfeoma MD, Mary, LPN 07/09/2024 2:19 PM Signed Called and spoke to patient would prefer [facility] d/t legally blind. Faxed order and facesheet to [facility] sleep study Janet Meza LPN July 09, 2024 2:18 PM Allergies As [...] Diagnosis:DAYSI (obstructive sleep apnea) [G47.33] Order(s):POLYSOMNOGRAM (PSG) [9027635] Order #: [id number] FUTURE Prescriptions as of 07/09/2024 - gabapentin [...] TENDINITIS [M76.50 (more content not included)... Normal [facility] Carotid arteries - vinnie jeffrey 06-04-2024 Non-Invasive Vascular Laboratory [facility] Carotid Duplex Bilateral/Complete Date of service/time: 06/04/2024 12:22:26 PM Name: MRS. ALLIE RUTLEDGE Date of : 1970 Age: 54 years [...] Subclavian artery: Patent. Technologist: Ilene Cruz RVT, RDMS Ordering physician: IFEOMA DAVIS Interpreting physician: JOSHUA Spence DO Final See Link below for Image [facility] OCT MACULA CIRRUS OU (BOTH E YES)on 02-18-2024 [facility] Radiology Study observation (narrative) [facility] SURGICAL PATHOLOGYOrdered By : Rik De La Paz on 06-07-2023 Addendum q4yhcLIhMVGhdCMnBXZa M1x dfqPbLPRmzCEoP8LxedvtXH leIK7fWY6lgNcpsZNerINqQ HOyEiAax4pjn939kFHli1lt CAVFCKioYEZTZPb7z1kuWAZ IsmmcjVj2kHibH38nz0B6Lo elL2omGYRjNWnqJCZjATnrq YKtQTy6RFDpoIKgqaSwYhDz FFMcnXRtzYE9MOEwLI7emuc pVSonHYkaLCUetyP1XEIcjG TbR9DhUBTaYU9lacnzIBO9Z LufPQXhMWS3MgKrYTIgp8Xy nid8HxFgrRXtIIlrfBSdawo pGStbmfCbLJhnqBHud1dkm7 PnG5xbqFfxzEO9KPNpurEWS iBweWxvcmkgaXMgbmVnYXRp dmUgKHBhcnQgQikuXHBhclx gTzJbmKBqATpvXh9nIOTlch gfDZT7UHanfIReINQgv5DzP WuHUSolECwoP8edeH2zuuph dGWjTCRyzmCtsd3lerNtEIV eZPRuD7OhcdqqkBtgxrGmLg TbyL57ya8hmAJ2z4OdVW4cT 6LoVDNxeK83lt1xbVVokmIi L2VkvDOneqOlQ7hrc42pW6H zpTYpgH6lw4u6nHQxrXHfrX ZrcfC4nB5qWJWfw8HqLIcgs eWeBwPyngLzMHGczm4mrbPi YSW4ZDScAREqLOVmw9UnnC1 bCBojDk3xPGLpgaere4y1hJ luIENsZXZlbGFuZCBDbGlua YTezYxiQTlfQKs5MpUiZd3l ZDX1PIclMPUolQmvD2nlMJS 5iH4zj0r6DUWrQBBNONUngy Z3s1W7DA7kPLoitP7zCFgyv 4BulUU5MMRaTNBpooUYLZ7x hROzLJ0kjTa5LXczIOJldp5 rARinjhSqQEufYE8xzWk3CE idNEEyv0IhXHZoT2KgwB4mT Uzqx2FhgGCoDLBRIKIwaDRV t4YkoLMunIjuVM1olXHxSNP bykNuWB9qAEurUIjfH8YbdC IpWZUYRDI3nY7rHEGlxRYiC A6xtzZbTKcba6BpiMKjEHIt qgDQslxkalATd4NrwXZdfRf vgY3cKPLiXK6pOCVyR91gz6 ydaNRpiGV8cXAtKRVJUBMvr eRgjGjdKY2puwXuNhDEarAj h5KzaV0dGBTeUlT9cYPqKGO 3WUR2gxOvHOReEI5jaSMyEY YfWXUtUHCyABTkh7AeGQRcr w37GAFbIfmtjMpwYXFEVJ2i YjFpFNaQKQOdwbGbHDh0wXN 6PLMpwQ6yMEEfL1sEDEFhdo QjqZQivKVvQMKwwX6lrUChR h7skGEcpYxkHOOnhCEhSZbr xRaoyRShbStlRw3nMIxlx9D gdGVzdHMgYXJlIHVzZWQgZm 5mISGrfG2vK4KhQNG0taDpe 5TuKgJXvGR2VGCnh5JvSUQk b9ToQqAftaNyWTUvIOVcDST tvB96XHW1sRewbCzottCtSR 3pADPfuxKsGJXaENQsuP2tD B3srZCywcTzRP9zWG7uG0Y7 yUSsUBUbyuHwj7mhQGZ1EGl uIGFwcHJvcHJpYXRlbHkuXH Bhcn0= [facility] Work Phone: Case Report Surgical Pathology Report Case: [id number] Authorizing Provider: Andry Connelly MD Collected: 05/30/2023 01:16 PM Ordering Location: Ambulatory Surgery Received: 05/30/2023 09:01 PM Pathologist: Rik De La Paz MD Specimens: A) - DUODENUM BIOPSY, 2nd portion B) - ANTRUM (STOMACH) BIOPSY C) - STOMACH (GASTRIC) POLYP BIOPSY D) - RECTAL POLYP [facility] Work Phone: FINAL DIAGNOSIS x7forBChBXGxlUDyFPJa M1x mmwCeHSIaxXApC4XfvhhdGH hwHV5wFT9dnDwewYIccJGxQ ZJlCfDcr3plq162rNEie6gj JDQIpdyehVg7dGrrW64mk6Z 4XqzpW54keIUqXQE8GNDpDF YtgXDeOEPhENE3KSPmcCKaB 8sfCSFgQS5dpoesLEjtCBxj MWHvsEJ0ZRDliLXcS8HpPEN uJGvxXEMlalj2XcBuVe5scV VyeTcyMFxwYXJkXHBsYWluX OCkSdSxGT8mSYF0f1QxafIm UFLbqN8dg8x9SILlnnTcMLN tYWxsIGludGVzdGluYWwgbX Jwk1FsCRrpjQrtqh4im4sup umgkZWxehIlwDY0nX0hl9od MuXjWz0uxw9ckMa0gO1ccZT mVQVrbiCPXwNbL9KucGPldA sdQyilkYF5AszuMPNhUDUTz JriIKAmpi1zlTUeE7IfoUXc dGlzLlxwYXJccGFyIEMuICB TmK9iYTUuTKFyv3g9pDSuwK 9vuXkrvGWnPR1ySdHkJZwlR RllBY1eLTQnlKwoOulwUPNl pWSmVXQeDZARCGK2cP1xZFL slLljKHQ6e534ZowtJZWeGE SDwCV3gYCiOEUrQR6nsGVcL HBhcn0= [facility] Work Phone: Gross Description j2dnfIOdTZYkjIMGBJG6 MDJ nYN8ouOqizLg0qEolWKGfhp G9sIYbTDhmo0oeCJZ2b9gex qDGHrxmKIFrPA5wNWojMNEh QE2eDrJrIKRfPiBvLPVnwPT hjpHcRpRfYJBudQPsoFJ4IG XyTV5cpzjyBSxqORoxQROxz dC2FDDgnMJkL1ZfHAToHK5c tsblERE5NDCKNaacTp6yhHL ibHtcZjFcZmNoYXJzZXQwXG SgwPbgWJDgWKf0kC7WGzzaU YP6BPCYNjgaKzhovVwxc6Ex dCBcXHNnIFxcaWQgNTEwMDA eVDmbKnZOZjOiGwD1KqipDp z3ArLaWZj3HHlpVgWERPt1I CH4WcGbQRs2XQyeIJphvLBs QDGpIORdUXSyFTmqjeN7z2s sAAIptMPpWBK5WHlwr0qpAN ynGQS2WAKgAiUvASOrSG1BY qFhNVLcThMyQvbuBbE6TMr7 OSBPVlMgIiAgMzgwNjQwMjk bLIr8NCk8GCcWSxGdODNqBf abHVGwItV6JXn9GlVeTTEoI fMkQNVxBMJkFOgmlMReIH2t qGfmLSHfYQ0RWPLsCThkYXL nOvBkAC8zAQYREYFIDV3dEw jFCIJFLOk6nwPqAHVzqxNHX hzmAHErIB8PZKGdUPxzQQb9 iyNtMYQuBwGzKEJoM15mc1Q Gv0YnJY3QIZf8sdIbjazqyL 4wXHJpbjAgDQpcZnMyMCBSZ HOlaEWtRJLqzyObz8XhYTfr biBhcmUgbXVsdGlwbGUgcGl dI4PxOT5sYQLdfvgfs70hiK Q7hDSxsPLjGOnrciEpAHVuf shnqK1aYCEhENA4APVvIiJ0 GNUiJgCehK3mOZ41XMxgoQY pzATnyTN8ROYfsV6we83xLJ Okn8AlgAQmCkboLODlJCtva 2EzMFxlcGljWHNhMzAgDQpc BXVmV63ca3KNl6Jes7egeTx cc2ImsIKpVS3nkMPxGB7Vj4 xwXOUliOKyBAA4GApov3rbH RixFSZ1ENQmAnIaAVKfOY1T UdRaZTJaZcVzAjdhLyC4IMb 5OSBPVlMgIiAgMzgwNjQxMD MdBUh4ZBu0IXmKQaZlZWCsE ijtEYI1BMD7VKm7HbJqGDBn MiBcXHNzIDMgXFxmbCBcXG5 kbFjoXQGtVUQgTVY5RAVeqW NTr9KyHJZxEJwxEfYxTdSUE wECNdEFXK0rPNBSM81KH5ha TORNH9MQJOteBKMiWGzuwMF yZCANClxwbGFpblxsdHJjaF vpndBsDKFjiLHXQUU6VL2hZ SANClxsdHJwYXJcbGluMFxy hK7oOLIxQxFmXNZyP4okFtT aZH8DISBkOeYrSiKnVSb1MU KwuF1kFv4tlTRlcU3uTWUpK QW4ceQycPHyCGZru1GfmFBf LEEyr6F9DJDhu1Y0XFZmZ9n fCFzgyIwvLgF4yuOcNpwhwN YzVyVkmGIdIcXkJ59zAXWmv JXwtWfqo6MgwOg7sBBsPBny QB1qETEzMUAhSSU2HT0fcBM nZX4RIIJjCCkufRbmCARdXA thUMOoVOVuvGOVa0IhREORY asvaOcqWwJaxSOnAgW9DBGv uRUoCDK0PJ4vcQbkHYNkZDj 5JBpmDOIaP7LgU7AhRHymEa BcXGlkIDUxMDAyIFxcZGIgT 7TXKXZvZZT0NhO5ObFnOIz1 DWt4UN0JYwTmUZZxING9TQQ 7MTZnRYp4OKxuUP3TQQFiCk XdWZK9Klt2IFT5Cyh8DCfkf FPgOJibt1HdMsKcCLPiTDkw tzQ9ARDrthAda6WaZSAsFAS cX0dxFvCoEUTIDshwufMrQN SpSZJBB62ZW2kzBLdQR6BOV ZAiUJWBJUrVTVMRR0PDTXno YXIgDQpccGFyZCANClxwbGF pblxsdHJjaFxmczIyXGVwaW WTZOM6QO6aYFOWOdztrRPxB AMjzWmiADlrnO4lQMIjRsZw IAJcX9pzTwFnXG1SAJOsRaL jZnDfJUb5HJBquO3dNx0ktV RyrL1idAYtp04iSQUlSIDoC B3dSQToud5xly95gkwqt68n lDY0uIRahHIbnFHms7CzhC3 xCSByKkG7DHDrAsD9XMNdZs AcjQ5kLZ26OZxvtQJniNTih LI8GSDkqQ2ox82kTCCfg4Cb bYSeXcSqoFFwAT2NRZFtDOf lcGljWHNiMFxzYTMwXGVwaW XWv3NhQKPHMrdboXdiCiEep VVwEiP8YYUdwSVfRTU0CC2c oCkfWNNpOOm9OOvgJNRyB6M sC4ChQErmGaYjJBibFLVyHL UvHXtpAUUcV8RPFVXmNGK9G gQ5RzArYVa1XNz3DA1JAeCr WRUmGKL3VWp8TiWaLZf7YOa nQM6EPPEaJlMfKBX0Jvk2ZG C0Dcz1BJktwCUnIJozp5PmM kYwKRMzKZatzwN1KLXnpzHz y2HtUEGdPVBuB5jfFwSyNXT OAlvmkbEaTJAuJBPAQ2XHWV WUC2sPNTxlSUJqRVpdsNJdB CANClxwbGFpblxsdHJjaFxm ofHxLQEdcOADSEG0IW9kCTT NClxsdHJwYXJcbGluMFxyaW 1bBRWzGxJbKWOhM5peDvDzH C7OJWVfGwWzRnKiVDx8ILGt vO1rQt8yjOLvuV1jgWGlb14 yJQZrGUMtUP1iQYPnxxrzy7 6urNY2lMGecXBdxCVnd7Yno U3eTQQrTjQ8KZXfLvE2ZNPt YAVvoD2nTD51YWyvlZWuwLY ugQN1MUOojS7hf87fVDHnk6 MhpXHuPzBsfBRaLP1NZLMgK FxlcGljWHNiMCANCiBccGFy UJ7US4Wcd3UjMOvydUcpNVF ta89soZZyWq5gkXFwULP0TT NsZXZlbGFuZCBDbGluaWMsI Tl9UEDsWRBjfSylHMU0HG7e KYMrYGZymWEvNAalB8yoYVH hVUIycYBhWB5EQJGerjZMAb tLIFNlcHRlbWJlciAyOSwgM sFvVwLjQaX1GJTLAB4uvGWg TB7XPWZwfeDCYqvoBPBpTMN pqKOPu4PnAXQVAebdfRcfJh ArrNUzKbL1HPNzbIMkZJB7D S8iuEmmXSDaF1QwL5GrvxC8 EVHkwvBMTlzfKKWhCR6MUFL zMjIgDQp9 [facility] Work Phone: Performing Lab q1nwwYDaKPErzEToRjOh MDA bYGVon7tbUEEalSRtUgRyKw NcZnRuYmpcdWMxXGRlZmYwe 6elx771wOFlx8ubAZAhHiF2 zDUuNDXjgYUoX042UBCkYCg rf2rnk9UqOSJtmVBcq8Z6VC OLkpbimAp3vIgqU60hp5V1S ypaL2pdWPKaTMUjM8DdUJ3h MYVxGcu3YXS1QVI9TMYoXKH fC3XwFI1gWATkuYCzFBj1i9 unhPfdLIErBLL3b8mpNVhcl hTaUD0gls3raEs7k7ssjrJv IJPkVNOlpVBEMGRpB3RzeDo bXh7oyNl6sTtkYwbpXOG4Vm u4AA5ymf54ypt3dXnkUAFad aqnNdR3EJftAEZmkjtzAXc5 PCaaGBIcjYM0MEEqlAGcA9P nCXuxAJ7vtma5WHC0OMxkYZ LpNtE7HOAtnPUaFKAsgJheK Skkr122OZR0FlTiXZ0qL1Jh v4B6pG2heFJrXEOqkKSjEyL eGERpmm0dsQHkHWcqt9QjAG M4aoY0qVNkyDYpNZKeIO79O ktfw0WeCiqfo1KdO96njJF6 NShue2ktDH5uSeA8ayYvXQw zd7eizM4rReM4GZatXO1aPW 6pEYAyhN6lwqneKSDsLdWnf elsJVQcoNkemqSdJd3tbOho AJC5QKhkV6zetS9aKhJ8HRx vN5tpgU4kBBz2TMpibTV4EA KfdI7xNO6quqafx3jrGAheO UlgLISdpgS0vgPvAOBlxXQl F9LxwY2mBIMbSO1ihmmwk6p hWJV5WNsfMKKoUVD0JjDdKN Wxr1Vrphs8QhIok8VxiJRzO PipE79xx503ERWvxtRnP4hy bGFpblxwbGFpblxmMFxmczI 0XHFsXHBsYWluXGYxXGZzMj JcbGFuZzEwMzNcaGljaFxmM FryPzPxOPAfDOvdD8kzHgQl JuZhQoAAbVOlif8ntSwxTJf yaPPekQKvfGW3xS3bXZDmkn Naej1qSIMkwAVUyRC3EToyx qFjC3ymlmfuDST0UIAuFVZ4 X2rlAPEAroDeDHLjRGZgnEN dDBYLKLZ8KNT6BTKiSKOAEX NyOOF0PKS3JMRgZQZcvZUqY HBhclxwYXJkXHBsYWluXGYw LGZdKfKgeAxamG3bPoZzIsI yHqiwSM7tKTDjG5clzQBlPZ FlXVKsK3eoEkExwO5mjYfcU VxjZjJcZnMyMlxsdHJjaCBM TJDjoiE1x6B8VGigmEUjlvk mMVxmczIyXGxhbmcxMDMzXG inO7ydBdUpGUGwlQyoBKajn 0XmTBNgHTWmDlCsZAfmNLC2 m5T5NWevxXImihYMRvUUTV9 nvJLnlrvxPG5PIdwzCSY6 [facility] Work Phone: [facility] Work Phone: EGD Study observation Araceli aceves 06-01-2023 [facility] Patient Name: Allie Rutledge Procedure Date: 05/30/2023 1:05 PM Date of : 1970 Admit Type: Outpatient Age: 53 Room: [facility] 2 Gender: Female Note Status: Finalized Attending MD: [...] previously scheduled. Procedure Code(s): --- Professional --- 60875, Esophagogastroduodenosc opy, flexible, transoral; with biopsy, single or multiple CPT copyright 2020 [employer]. All rights reserved. The codes documented in this report are preliminary and upon invoice coder review may be revised to meet current compliance requirements. (more content not included)... PROVATION [facility] Flexible sigmoidoscopy study on 06-01-2023 [facility] Patient Name: Allie Rutledge Procedure Date: 05/30/2023 1:05 PM Date of : 1970 Admit Type: Outpatient Age: 53 Room: [place] [address] Gender: Female Note Status: Finalized Attending MD: [...] antiplatelet agents. Procedure Code(s): --- Professional --- 76056, Colonoscopy, flexible; with biopsy, single or multiple CPT copyright 2020 [employer]. All rights reserved. The codes documented in this report are preliminary and upon invoice coder review may be revised to meet current compliance requirements. Attending Participation: I personally performed the entire procedure. Scope In: 1:23:39 PM Scope Out: 1:33:56 PM MD Andry Martin MD 05/30/2023 1:42:21 PM This report has been signed electronically by Andry Connelly MD Number of Addenda: 0 Note Initiated On: 05/30/2023 1:05 PM Estimated Blood Loss: Estimated blood loss was minimal. PROVATION [facility] EGD Study observation Narrat iveon 05-30-2023 Radiology Study observation (narrative) [facility] Flexible sigmoidoscopy study on 05-30-2023 Radiology Study observation (narrative) [facility] Basic metabolic 2000 panelon 05-22-2023 Anion gap [Moles/Vol] 10 mmol/L 9 - 18 mmol/L [facility] Calcium [Mass/Vol] 9.8 mg/dL 8.5 - 10. 2 mg/dL [facility] Chloride [Moles/Vol] 101 mmol/L 97 - 10 5 mmol/L [facility] CO2 [Moles/Vol] 25 mmol/L 22 - 30 mmol/L [facility] Creatinine [Mass/Vol] 0.86 mg/dL 0.58 - 0.96 mg/dL [facility] Estimated Glomerular Filtration Rate 80 mL/min/1.73m >=60 mL/min/1.73m [facility] Glucose [Mass/Vol] 79 mg/dL 74 - 99 mg/dL [facility] Potassium [Moles/Vol] 4.1 mmol/L 3.7 - 5.1 mmol/L [facility] Sodium [Moles/Vol] 136 mmol/L 136 - 144 mmol/L [facility] Urea nitrogen [Mass/Vol] 18 mg/dL 7 - 21 mg/dL [facility] URIC ACID BLOODon 05-22-2023 Urate [Mass/Vol] 3.6 mg/dL 2.5 - 6.6 mg/dL [facility] ANES POSTPROC EVALon 023 ANES POSTPROC EVAL HNO ID: [id number] Author: Mary Kline MD Service: Anesthesiology Author Type: Anesthesiologist Type: Anesthesia Postprocedure Evaluation Filed: 11/07/2022 12:01 PM Note Text: POST ANESTHESIA EVALUATION NOTE : 1970 Procedure Summary Date: 11/07/22 Room / Location: ND OR / ND OR Anesthesia Start: 948 Anesthesia Stop: 1024 Procedure: RELEASE TRIGGER FINGER - RIGHT RING AND LEFT MIDDLE FINGERS (Bilateral: Finger) Diagnosis: Trigger ring finger of right hand Trigger middle finger of left hand (Trigger ring finger of right hand [M65.341]) (Trigger middle finger of left hand [M65.332]) Surgeons: Massimo Hicks MD Responsible Provider: Mary Kline MD Anesthesia [...] SIGNATURE: Mary Kline MD PATIENT NAME: Allie Rutledge DATE: November 07, 2022 TIME: 12:01 PM CSN: [id number] [facility] ANES PRE-OPon 11-07-2022 ANES PRE-OP HNO ID: [id number] Author: Mary Kline MD Service: Anesthesiology Author Type: Anesthesiologist Type: Anesthesia Preprocedure Evaluation Filed: 11/07/2022 9:04 AM Note Text: ANESTHESIOLOGY DAY OF SURGERY NOTE : 1970 Procedure Information Date/Time: 11/07/22 0955 Procedure: RELEASE TRIGGER FINGER - RIGHT RING AND LEFT MIDDLE FINGERS (Bilateral: Finger) Location: [place] OR02 / [place] Surgeons: Massimo Hicks MD Estimated body mass index is 30.86 [...] and consent discussed: yes. Patient / Responsible Republican agrees to proceed: yes Patient / Surrogate [...] SIGNATURE: Mary Kline MD PATIENT NAME: Allie Rutledge DATE: November 07, 2022 TIME: 9:04 AM CSN: [id number] [facility] HISTORY PHYSICALon HISTORY PHYSICAL HNO ID: [id number] Author: Taina Patino PA-C Service: Orthopaedic Surgery Author Type: [employer] Journalist Type: HANDP Filed: 11/07/2022 9:27 AM Note Text: Massimo Hicks MD Department of Orthopaedics [facility] [address] [place] [address] Dept: [phone] Dept October 01, 2022 CHIEF COMPLAINT: Established [...] getting the trigger releases done. Ms. Allie Rutledge was advised as to contrast therapies and/or to take analgesics/anti-inflamm atories as needed and all contraindications were reviewed. OBJECTIVE: Ms. Allie Rutledge is a pleasant 52 year old in [...] EXTRACAP,INSERT LENS Right 06/25/2022 S [place] [address] Medications: CURRENT MEDICATIONS Current Outpatient Medications Medication [...] (see HPI) Psych (no depression, anxiety) Massimo Hicks MD [facility] OPERATIVE NOon 11-07-2022 OPERATIVE NO HNO ID: [id number] Author: Massimo Hicks MD Service: Orthopaedic Surgery Author Type: Physician Type: Operative Report Filed: 11/07/2022 10:43 AM Note Text: OPERATIVE/PROCEDURE REPORT LOG ID: [id number] SURGERY/PROCEDURE DATE: 11/07/2022 INCISION/PROCEDURE START TIME: 10:01 AM INCISION CLOSE/PROCEDURE END TIME: 10:19 AM SURGEON(S)/PROCEDURALIS T(S) AND RETAIL ATTENDANT(S): Surgeon(s) and Role: * Massimo Hicks MD - Primary [employer] Journalist: Taina Patino PA-C Registered Nurse Blast Furnace Helper: Marnie Freitas RN SURGERY/PROCEDURE(S): Right, ring finger [...] each procedure. CLOSURE TECHNIQUE: Primary SIGNATURE: Massimo Hicks MD PATIENT NAME: Allie Dianety DATE: November 07, 2022 TIME: 10:38 AM [facility] CNTHERAPYon 10-31-2022 CNTHERAPY OT/PT/Speech Visit ([place]) AAMIRALLIE HOLLAND ([id number]) 1970 F [place] Date Time Provider Department 10/31/22 9:45 AM MICHELLE PEREZ Date Time Provider Department Center 10/31/2022 9:45 AM [id number], [facility]BECCA[facility] Reason for Visit: [...] this patient by: PATIENT ALMA DELIA Rosario [facility] GENOVEVA CARR RTon 023 [facility] US BREAST LTD RTon 3 [facility] CNTHERAPYon 10-17-2022 CNTHERAPY OT/PT/Speech Visit ([place]) ALLIE RUTLEDGE ([id number]) 1970 F [place] Date Time Provider Department 10/17/22 10:45 AM MICHELLE PEREZ Date Time Provider Department Center 10/17/2022 10:45 AM [id number], REBECCA*[facility] Reason for Visit: Occupational Therapy [...] this patient by: PATIENT ALMA DELIA Rosario [facility] XR SHOULDER [id number] AP/SYLVIA E AP RIGHTon 10-09-2022 [facility] XR HAND GENERAL 3V PA/LAT/OB L BILATERALon 10-01-2022 [facility] GENOVEVA SCREENINGon 09-27-2022 [facility] CNTHERAPYon 09-19-2022 CNTHERAPY OT/PT/Speech Visit ([place]) ALLIE RUTLEDGE ([id number]) 1970 F [place] Date Time Provider Department 09/19/22 12:30 PM MICHELLE PEREZ Date Time Provider Department [place] 09/19/2022 12:30 PM [id number], REBECCA*[facility] Reason for Visit: OT EVAL [...] this patient by: PATIENT ALMA DELIA Rosario [facility] ANES POSTPROC EVALon 06-25-2 022 ANES POSTPROC EVAL HNO ID: [id number] Author: Florencio De La Fuente MD Service: Anesthesiology Author Type: Anesthesiologist Type: Anesthesia Postprocedure Evaluation Filed: 06/25/2022 12:00 PM Note Text: POST ANESTHESIA EVALUATION NOTE : 1970 Procedure Summary Date: 06/25/22 Room / Location: [facility] / [facility] Anesthesia Start: 957 Anesthesia Stop: 1130 Procedures: PHACOEMULSIFICATION CATARACT IMPLANT INTRAOCULAR LENS W/O ENDOSCOPIC CYCLOPHOTOCOAGULATION (Right: Eye) REPAIR W/SUTURE IRIS AND CILIARY BODY (Right: Eye) OPHTHALMIC BIOMETRY BY PARTIAL COHERENCE INTERFEROMETRY W/INTRAOCULAR LENS POWER CALCULATION (Right: Eye) Diagnosis: Combined 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 Photopsia (Combined 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 [H25.811]Photopsia [H53.19]) Surgeons: Jonathon Johnson MD Responsible Provider: Florencio De La Fuente [...] De La Fuente MD PATIENT NAME: Allie Rutledge DATE: June 25, 2022 TIME: 12:00 PM CSN: [id number] [facility] ANES PRE-OPon 06-25-2022 ANES PRE-OP HNO ID: [id number] Author: Florencio De La Fuente MD Service: [...] W/INTRAOCULAR LENS POWER CALCULATION (Right: Eye) Location: [place] [address] / [facility] Surgeons: Jonathon Johnson MD Estimated body mass index is 30.27 [...] De La Fuente MD PATIENT NAME: Allie Rutledge DATE: June 25, 2022 TIME: 9:57 AM CSN: [id number] [facility] HISTORY PHYSICALon HISTORY PHYSICAL HNO ID: [id number] Author: Jonathon Johnson MD Service: Ophthalmology Author Type: Physician Type: [...] be found in the attached. SIGNATURE: Jonathon Johnson MD PATIENT NAME: Allie Rutledge DATE: June 25, 2022 TIME: 10:02 AM [facility] OPERATIVE NOon 06-25-2022 OPERATIVE NO HNO ID: [id number] Author: Jonathon Johnson MD Service: Ophthalmology Author Type: Physician Type: Operative Report Filed: 06/25/2022 11:35 AM Note Text: OPERATIVE/PROCEDURE REPORT OPHTHAMOLOGY LOG ID: [id number] SURGERY/PROCEDURE DATE: 06/25/2022 INCISION/PROCEDURE START TIME: 10:13 AM INCISION CLOSE/PROCEDURE END TIME: 11:27 AM SURGEON(S)/PROCEDURALIS T(S) AND RETAIL ATTENDANT(S): Surgeon(s) and Role: * Jonathon Johnson MD - Primary PROCEDURE(S): Procedure(s) (LRB): PHACOEMULSIFICATION [...] Implant Name Type Inv. Item Serial No. Lithographer Apprentice Lot No. [id number] No. Used Action Model No. LENS ACRYSOF ULTRASERT +14.5 DIOPTER ACRYLIC IOL 1 PIECE FOLDABLE UV BLUE - [id number] Intraocular Lens LENS ACRYSOF ULTRASERT +14.5 DIOPTER ACRYLIC IOL 1 PIECE FOLDABLE UV BLUE [id number] [facility] Right 1 Implanted [id number] Ocular Co-Morbidities: Yes Intra-operative Complications None I/primary surgeon/proceduralist performed the entire procedure. SIGNATURE: Jonathon Johnson MD PATIENT NAME: Allie Rutledge DATE: June 25, 2022 TIME: 11:31 AM PAGER/CONTACT #: [phone] [facility] ESR Westergren method (Bld) [Velocity]on 05-04-2022 ESR (Bld) [Velocity] 10 mm/h 0 - 20 mm/hr [facility] C-REACTIVE PROTEIN (CRP)on 0 05-03-2022 CRP [Mass/Vol] <0.9 mg/dL [facility] RHEUMATOID FACTOR BLon 05-03 Rheumatoid factor Qn <16 IU/mL [facility] No Panel Information [facility] Vital Signs Date Time Vital Sign Value Performing Clinician Faci lity 06-03-2025 15:26-0400 Body height 154.[address] Ifeoma Davis MD Work Phone: [facility] 06-03-2025 15:26-0400 Body mass index (BMI) [Ratio] 27 kg/m2 Dr. Ifeoma Davis MD Work Phone: [facility] 06-03-2025 15:26-0400 Body weight 64.[address] Ifeoma Davis MD Work Phone: [facility] 05-27-2025 19:22-0400 Body temperature 98 [degF] Dr. Ifeoma Davis MD Work Phone: [facility] 05-27-2025 19:22-0400 Diastolic blood pressure 69 mm[Hg] Dr. Ifeoma Davis MD Work Phone: 4(136)[phone] [place] [address] 05-27-2025 19:22-0400 Heart rate 72 /min Dr. Ifeoma Davis MD Work Phone: 9(802)922-316748 [place] [address] 05-27-2025 19:22-0400 Respiratory rate 16 /min Dr. Ifeoma Davis MD Work Phone: 6(431)709-901348 [place] [address] 05-27-2025 19:22-0400 SaO2% (BldA) [Mass fraction] 100 % Dr. Ifeoma Davis MD Work Phone: 6(478)978-766048 [place] [address] 05-27-2025 19:22-0400 Systolic blood pressure 116 mm[Hg] Dr. Ifeoma Davis MD Work Phone: 7(700)324-366748 [place] [address] 05-27-2025 17:07-0400 Body height 154.[address] Ifeoma Davis MD Work Phone: 7(878)837-801248 [place] [address] 05-27-2025 17:07-0400 Body mass index (BMI) [Ratio] 27.6 kg/m2 Dr. Ifeoma Davis MD Work Phone: 2(141)344-758648 [place] [address] 05-27-2025 17:07-0400 Body weight 66.[address] Ifeoma Davis MD Work Phone: 0(053)375-462948 [place] [address] 04-22-2025 10:29-0400 Body mass index (BMI) [Ratio] 27.7 kg/m2 Ifeoma Davis MD Work Phone: 2(502)896-340687 [place] [address] 04-22-2025 10:29-0400 Body weight 66.5 kg Ifeoma Davis MD Work Phone: 8(063)999-055587 [place] [address] 04-22-2025 10:29-0400 Diastolic blood pressure 79 mm[Hg] Ifeoma Davis MD Work Phone: 2(331)916-388338 [place] [address] 04-22-2025 10:29-0400 Heart rate 79 /min Ifeoma Davis MD Work Phone: 6(906)991-505538 [place] [address] 04-22-2025 10:29-0400 Respiratory rate 16 /min Ifeoma Davis MD Work Phone: 4(660)894-814538 [place] [address] 04-22-2025 10:29-0400 Systolic blood pressure 129 mm[Hg] Ifeoma Davis MD Work Phone: [facility] 04-11-2025 13:09-0400 Body mass index (BMI) [Ratio] 27.53 kg/m2 Aislinn Mcmullen PA-C Work Phone: [facility] 04-11-2025 13:09-0400 Body temperature 97.2 [degF] Aislinn Mcmullen PA-C Work Phone: [facility] 04-11-2025 13:09-0400 Body weight 66.1 kg Aislinn Mcmullen PA-C Work Phone: [facility] 04-11-2025 13:09-0400 Diastolic blood pressure 62 mm[Hg] Aislinn Mcmullen PA-C Work Phone: [facility] 04-11-2025 13:09-0400 Heart rate 82 /min Aislinn Mcmullen PA-C Work Phone: [facility] 04-11-2025 13:09-0400 Respiratory rate 20 /min Aislinn Mcmullen PA-C Work Phone: [facility] 04-11-2025 13:09-0400 SaO2% (BldA) [Mass fraction] 98 % Aislinn Mcmullen PA-C Work Phone: [facility] 04-11-2025 13:09-0400 Systolic blood pressure 110 mm[Hg] Aislinn Mcmullen PA-C Work Phone: [facility] 03-24-2025 14:59-0400 Body height 154.9 cm Pacc 1 Work Phone: [facility] 03-24-2025 14:59-0400 Body mass index (BMI) [Ratio] 27.78 kg/m2 Pacc 1 Work Phone: [facility] 03-24-2025 14:59-0400 Body weight 66.68 kg Pacc 1 Work Phone: [facility] 03-24-2025 14:59-0400 Diastolic blood pressure 66 mm[Hg] Pacc 1 Work Phone: [facility] 03-24-2025 14:59-0400 Heart rate 80 /min Pacc 1 Work Phone: [facility] 03-24-2025 14:59-0400 Respiratory rate 18 /min Pacc 1 Work Phone: [facility] 03-24-2025 14:59-0400 SaO2% (BldA) [Mass fraction] 96 % Pacc 1 Work Phone: [facility] 03-24-2025 14:59-0400 Systolic blood pressure 108 mm[Hg] Pacc 1 Work Phone: [facility] 12-29-2024 15:08-0400 Body height 154.9 cm Ifeoma Davis MD Work Phone: [facility] 12-29-2024 15:08-0400 Body mass index (BMI) [Ratio] 27.66 kg/m2 Ifeoma Davis MD Work Phone: [facility] 12-29-2024 15:08-0400 Body weight 66.41 kg Ifeoma Davis MD Work Phone: [facility] 12-29-2024 15:08-0400 Diastolic blood pressure 66 mm[Hg] Ifeoma Davis MD Work Phone: [facility] 12-29-2024 15:08-0400 Heart rate 86 /min Ifeoma Davis MD Work Phone: [facility] 12-29-2024 15:08-0400 SaO2% (BldA) [Mass fraction] 97 % Ifeoma Davis MD Work Phone: [facility] 12-29-2024 15:08-0400 Systolic blood pressure 112 mm[Hg] Ifeoma Davis MD Work Phone: [facility] 12-09-2024 13:28-0400 Body height 152.[address] Ifeoma Dvais MD Work Phone: [facility] 12-09-2024 13:28-0400 Body mass index (BMI) [Ratio] 29.5 kg/m2 Dr. Ifeoma Davis MD Work Phone: [facility] 12-09-2024 13:28-0400 Body weight 68.[address] Ifeoma Davis MD Work Phone: [facility] 11-24-2024 15:06-0400 Body height 152.[address] Ifeoma Davis MD Work Phone: [facility] 11-03-2024 14:09-0500 Body height 154.9 cm Ifeoma Davis MD Work Phone: [facility] 11-03-2024 14:09-0500 Body mass index (BMI) [Ratio] 29.25 kg/m2 Ifeoma Davis MD Work Phone: [facility] 11-03-2024 14:09-0500 Body weight 70.22 kg Ifeoma Davis MD Work Phone: [facility] 11-03-2024 14:09-0500 Diastolic blood pressure 78 mm[Hg] Ifeoma Davis MD Work Phone: [facility] 11-03-2024 14:09-0500 Heart rate 98 /min Ifeoma Davis MD Work Phone: [facility] 11-03-2024 14:09-0500 SaO2% (BldA) [Mass fraction] 96 % Ifeoma Davis MD Work Phone: [facility] 11-03-2024 14:09-0500 Systolic blood pressure 114 mm[Hg] Ifeoma Davis MD Work Phone: [facility] 10-31-2024 12:58-0500 Body mass index (BMI) [Ratio] 28.74 kg/m2 Chantal Segura APRN.CNP Work Phone: [facility] 10-31-2024 12:58-0500 Body temperature 97.11 [degF] Chantal Segura APRN.CNP Work Phone: [facility] 10-31-2024 12:58-0500 Body weight 69 kg Chantal Alvarez DINNER COOK.TALENT MANAGER Work Phone: [facility] 10-31-2024 12:58-0500 Diastolic blood pressure 88 mm[Hg] Chantal Alvarez DINNER COOK.TALENT MANAGER Work Phone: [facility] 10-31-2024 12:58-0500 Heart rate 97 /min Chantal Alvarez DINNER COOK.TALENT MANAGER Work Phone: [facility] 10-31-2024 12:58-0500 Respiratory rate 18 /min Chantal Alvarez DINNER COOK.TALENT MANAGER Work Phone: [facility] 10-31-2024 12:58-0500 SaO2% (BldA) [Mass fraction] 99 % Chantal Salmonk DINNER COOK.TALENT MANAGER Work Phone: [facility] 10-31-2024 12:58-0500 Systolic blood pressure 141 mm[Hg] Chantal Alvarez DINNER COOK.TALENT MANAGER Work Phone: [facility] 10-12-2024 15:14-0500 Body mass index (BMI) [Ratio] 29.78 kg/m2 Ifeoma Davis MD Work Phone: [facility] 10-12-2024 15:14-0500 Body temperature 96.91 [degF] Ifeoma Davis MD Work Phone: [facility] 10-12-2024 15:14-0500 Body weight 71.49 kg Ifeoma Davis MD Work Phone: [facility] 10-12-2024 15:14-0500 Diastolic blood pressure 63 mm[Hg] Ifeoma Davis MD Work Phone: [facility] 10-12-2024 15:14-0500 Heart rate 118 /min Ifeoma Davis MD Work Phone: [facility] 10-12-2024 15:14-0500 Respiratory rate 16 /min Ifeoma Davis MD Work Phone: [facility] 10-12-2024 15:14-0500 SaO2% (BldA) [Mass fraction] 99 % Ifeoma Davis MD Work Phone: [facility] 10-12-2024 15:14-0500 Systolic blood pressure 106 mm[Hg] Ifeoma Davis MD Work Phone: [facility] 10-07-2024 18:25-0500 Body mass index (BMI) [Ratio] 30.41 kg/m2 Calli Zabrina DINNER COOK.TALENT MANAGER Work Phone: [facility] 10-07-2024 18:25-0500 Body temperature 98.2 [degF] Calli Zabrina DINNER COOK.TALENT MANAGER Work Phone: [facility] 10-07-2024 18:25-0500 Body weight 73 kg Calli Zabrina DINNER COOK.TALENT MANAGER Work Phone: [facility] 10-07-2024 18:25-0500 Diastolic blood pressure 62 mm[Hg] Calli Zabrina DINNER COOK.TALENT MANAGER Work Phone: [facility] 10-07-2024 18:25-0500 Heart rate 103 /min Calli Zabrina DINNER COOK.TALENT MANAGER Work Phone: [facility] 10-07-2024 18:25-0500 Respiratory rate 16 /min Calli Zabrina DINNER COOK.TALENT MANAGER Work Phone: [facility] 10-07-2024 18:25-0500 SaO2% (BldA) [Mass fraction] 96 % Calli Zabrina DINNER COOK.TALENT MANAGER Work Phone: [facility] 10-07-2024 18:25-0500 Systolic blood pressure 124 mm[Hg] Calli Zabrina DINNER COOK.TALENT MANAGER Work Phone: [facility] 09-29-2024 14:11-0500 Body mass index (BMI) [Ratio] 30.42 kg/m2 Ifeoma Davis MD Work Phone: [facility] 09-29-2024 14:11-0500 Body weight 73.03 kg Ifeoma Davis MD Work Phone: [facility] 01-28-2025 14:11-0500 Diastolic blood pressure 88 mm[Hg] Ifeoma Davis MD Work Phone: [facility] 09-29-2024 14:11-0500 Heart rate 86 /min Ifeoma Davis MD Work Phone: [facility] 09-29-2024 14:11-0500 Respiratory rate 16 /min Ifeoma Davis MD Work Phone: [facility] 09-29-2024 14:11-0500 Systolic blood pressure 138 mm[Hg] Ifeoma Davis MD Work Phone: [facility] 09-24-2024 14:43-0500 Body mass index (BMI) [Ratio] 30.27 kg/m2 Michelle Elsy DINNER COOK.TALENT MANAGER Work Phone: [facility] 09-24-2024 14:43-0500 Body weight 72.67 kg Michelle Elsy DINNER COOK.TALENT MANAGER Work Phone: [facility] 09-24-2024 14:43-0500 Diastolic blood pressure 81 mm[Hg] Michelle Elsy DINNER COOK.TALENT MANAGER Work Phone: [facility] 09-24-2024 14:43-0500 Heart rate 101 /min Michelle Elsy DINNER COOK.TALENT MANAGER Work Phone: [facility] 09-24-2024 14:43-0500 SaO2% (BldA) [Mass fraction] 98 % Michelle Elsy DINNER COOK.TALENT MANAGER Work Phone: [facility] 09-24-2024 14:43-0500 Systolic blood pressure 122 mm[Hg] Michelle Elsy DINNER COOK.TALENT MANAGER Work Phone: [facility] 09-15-2024 10:09-0500 Body mass index (BMI) [Ratio] 29.85 kg/m2 Destiney [place] DINNER COOK.TALENT MANAGER Work Phone: [facility] 09-15-2024 10:09-0500 Body weight 71.67 kg Destiney [place] DINNER COOK.TALENT MANAGER Work Phone: [facility] 09-15-2024 10:09-0500 Diastolic blood pressure 66 mm[Hg] Destiney Helder DINNER COOK.TALENT MANAGER Work Phone: [facility] 09-15-2024 10:09-0500 Systolic blood pressure 118 mm[Hg] Destiney [place] DINNER COOK.TALENT MANAGER Work Phone: [facility] 07-08-2024 17:38-0500 Body mass index (BMI) [Ratio] 28.87 kg/m2 Letty Silva DINNER COOK.TALENT MANAGER Work Phone: [facility] 07-08-2024 17:38-0500 Body temperature 98.4 [degF] Letty Silva DINNER COOK.TALENT MANAGER Work Phone: [facility] 07-08-2024 17:38-0500 Body weight 69.3 kg Letty Silva DINNER COOK.TALENT MANAGER Work Phone: [facility] 07-08-2024 17:38-0500 Diastolic blood pressure 82 mm[Hg] Letty Silva DINNER COOK.TALENT MANAGER Work Phone: [facility] 07-08-2024 17:38-0500 Heart rate 109 /min Letty Silva DINNER COOK.TALENT MANAGER Work Phone: [facility] 07-08-2024 17:38-0500 Respiratory rate 18 /min Letty Silva DINNER COOK.TALENT MANAGER Work Phone: [facility] 07-08-2024 17:38-0500 SaO2% (BldA) [Mass fraction] 97 % Letty Silva DINNER COOK.TALENT MANAGER Work Phone: [facility] 07-08-2024 17:38-0500 Systolic blood pressure 128 mm[Hg] Letty Silva DINNER COOK.TALENT MANAGER Work Phone: [facility] 04-11-2024 11:57-0400 Body mass index (BMI) [Ratio] 28.78 kg/m2 Britta ESCUDERO Work Phone: [facility] 04-11-2024 11:57-0400 Body temperature 97.9 [degF] Krislyn Aberegg PA Work Phone: [facility] 04-11-2024 11:57-0400 Body weight 69.1 kg Krislyn Aberegg PA Work Phone: [facility] 04-11-2024 11:57-0400 Diastolic blood pressure 70 mm[Hg] Krislyn Aberegg PA Work Phone: [facility] 04-11-2024 11:57-0400 Heart rate 92 /min Krislyn Aberegg PA Work Phone: [facility] 04-11-2024 11:57-0400 Respiratory rate 16 /min Krislyn Aberegg PA Work Phone: [facility] 04-11-2024 11:57-0400 SaO2% (BldA) [Mass fraction] 97 % Krislyn Aberegg PA Work Phone: [facility] 04-11-2024 11:57-0400 Systolic blood pressure 122 mm[Hg] Krislyn Aberegg PA Work Phone: [facility] 03-31-2024 12:47-0400 Body height 154.9 cm Ifeoma Davis MD Work Phone: [facility] 03-31-2024 12:47-0400 Body mass index (BMI) [Ratio] 28.34 kg/m2 Ifeoma Davis MD Work Phone: [facility] 03-31-2024 12:47-0400 Body weight 68.04 kg Ifeoma Davis MD Work Phone: [facility] 03-31-2024 12:47-0400 Diastolic blood pressure 70 mm[Hg] Ifeoma Davis MD Work Phone: [facility] 03-31-2024 12:47-0400 Heart rate 80 /min Ifeoma Davis MD Work Phone: [facility] 03-31-2024 12:47-0400 Respiratory rate 16 /min Ifeoma Davis MD Work Phone: [facility] 03-31-2024 12:47-0400 Systolic blood pressure 128 mm[Hg] Ifeoma Davis MD Work Phone: [facility] 12-24-2023 12:58-0400 Body height 151.1 cm Destiney [place] DINNER COOK.TALENT MANAGER Work Phone: [facility] 12-24-2023 12:58-0400 Body mass index (BMI) [Ratio] 30.58 kg/m2 Destiney [place] DINNER COOK.TALENT MANAGER Work Phone: [facility] 12-24-2023 12:58-0400 Body weight 69.85 kg Destiney Helder DINNER COOK.TALENT MANAGER Work Phone: [facility] 12-24-2023 12:58-0400 Diastolic blood pressure 82 mm[Hg] Destiney [place] DINNER COOK.TALENT MANAGER Work Phone: [facility] 12-24-2023 12:58-0400 Systolic blood pressure 126 mm[Hg] Destiney [place] DINNER COOK.TALENT MANAGER Work Phone: [facility] 11-18-2023 10:09-0400 Body temperature 98.29 [degF] Adriana Vidal DINNER COOK.TALENT MANAGER Work Phone: [facility] 11-18-2023 10:09-0400 Body weight 70 kg Adriana Vidal DINNER COOK.TALENT MANAGER Work Phone: [facility] 11-18-2023 10:09-0400 Diastolic blood pressure 72 mm[Hg] Adriana Vidal DINNER COOK.TALENT MANAGER Work Phone: [facility] 11-18-2023 10:09-0400 Heart rate 80 /min Adriana Vidal DINNER COOK.TALENT MANAGER Work Phone: [facility] 11-18-2023 10:09-0400 Respiratory rate 18 /min Adriana Vidal DINNER COOK.TALENT MANAGER Work Phone: [facility] 11-18-2023 10:09-0400 SaO2% (BldA) [Mass fraction] 96 % Adriana Vidal DINNER COOK.TALENT MANAGER Work Phone: [facility] 11-18-2023 10:09-0400 Systolic blood pressure 124 mm[Hg] Adriana King MURTAZA.TALENT MANAGER Work Phone: [facility] 05-30-2023 14:00-0400 Diastolic blood pressure 81 mm[Hg] Andry Connelly MD Work Phone: [facility] 05-30-2023 14:00-0400 Heart rate 81 /min Andry Connelly MD Work Phone: [facility] 05-30-2023 14:00-0400 Respiratory rate 16 /min Andry Connelly MD Work Phone: [facility] 05-30-2023 14:00-0400 SaO2% (BldA) [Mass fraction] 99 % Andry Connelly MD Work Phone: [facility] 05-30-2023 14:00-0400 Systolic blood pressure 126 mm[Hg] Andry Connelly MD Work Phone: [facility] 05-30-2023 13:38-0400 Body temperature 98.1 [degF] Andry Connelly MD Work Phone: [facility] 05-30-2023 12:42-0400 Body height 152.4 cm Andry Connelly MD Work Phone: [facility] 05-30-2023 12:42-0400 Body mass index (BMI) [Ratio] 30.66 kg/m2 Andry Connelly MD Work Phone: [facility] 05-30-2023 12:42-0400 Body weight 71.22 kg Andry Connelly MD Work Phone: [facility] 05-21-2023 11:22-0400 Body height 149.9 cm Virginia Avalos PA-C Work Phone: [facility] 05-21-2023 11:22-0400 Body temperature 98.4 [degF] Virginia Avalos PA-C Work Phone: [facility] 05-21-2023 11:22-0400 Body weight 73.94 kg Virginia Denbow PA-C Work Phone: [facility] 05-21-2023 11:22-0400 Diastolic blood pressure 68 mm[Hg] Virginia Denbow PA-C Work Phone: [facility] 05-21-2023 11:22-0400 Heart rate 98 /min Virginia Denbow PA-C Work Phone: [facility] 05-21-2023 11:22-0400 Respiratory rate 12 /min Virginia Denbow PA-C Work Phone: [facility] 05-21-2023 11:22-0400 SaO2% (BldA) [Mass fraction] 99 % Virginia Denbow PA-C Work Phone: [facility] 05-21-2023 11:22-0400 Systolic blood pressure 124 mm[Hg] Virginia Denbow PA-C Work Phone: [facility] 04-30-2023 12:59-0400 Body height 149.9 cm Cande Kalka PA-C Work Phone: [facility] 04-30-2023 12:59-0400 Body weight 73.03 kg Cande Kalka PA-C Work Phone: [facility] 04-30-2023 12:59-0400 Diastolic blood pressure 72 mm[Hg] Cande Kalka PA-C Work Phone: [facility] 04-30-2023 12:59-0400 Heart rate 94 /min Cande Kalka PA-C Work Phone: [facility] 04-30-2023 12:59-0400 Systolic blood pressure 122 mm[Hg] Cande Kalka PA-C Work Phone: [facility] 10-16-2022 12:58-0500 Body height 152.4 cm Ifeoma Davis MD Work Phone: [facility] 10-16-2022 12:58-0500 Body temperature 97.81 [degF] Ifeoma Davis MD Work Phone: [facility] 10-16-2022 12:58-0500 Body weight 71.67 kg Ifeoma Davis MD Work Phone: [facility] 10-16-2022 12:58-0500 Diastolic blood pressure 70 mm[Hg] Ifeoma Davis MD Work Phone: [facility] 10-16-2022 12:58-0500 Heart rate 102 /min Ifeoma Davis MD Work Phone: [facility] 10-16-2022 12:58-0500 Respiratory rate 12 /min Ifeoma Davis MD Work Phone: [facility] 10-16-2022 12:58-0500 SaO2% (BldA) [Mass fraction] 97 % Ifeoma Davis MD Work Phone: [facility] 10-16-2022 12:58-0500 Systolic blood pressure 120 mm[Hg] Ifeoma Davis MD Work Phone: [facility] 06-25-2022 11:48-0400 Diastolic blood pressure 80 mm[Hg] Jonathon Johnson MD Work Phone: [facility] 06-25-2022 11:48-0400 Respiratory rate 16 /min Jonathon Johnson MD Work Phone: [facility] 06-25-2022 11:48-0400 SaO2% (BldA) [Mass fraction] 100 % Jonathon Johnson MD Work Phone: [facility] 06-25-2022 11:48-0400 Systolic blood pressure 141 mm[Hg] Jonathon Johnson MD Work Phone: [facility] 06-25-2022 11:36-0400 Body temperature 97.3 [degF] Jonathon Johnson MD Work Phone: [facility] 06-25-2022 09:44-0400 Body height 152.4 cm Jonathon Johnson MD Work Phone: [facility] 06-25-2022 09:44-0400 Body weight 70.31 kg Jonathon Johnson MD Work Phone: [facility] 06-25-2022 09:44-0400 Heart rate 92 /min Jonathon Johnson MD Work Phone: [facility] 06-20-2022 12:40-0400 Body height 152.4 cm Charlene Grossman MD Work Phone: [facility] 06-20-2022 12:40-0400 Body weight 70.31 kg Charlene Grossman MD Work Phone: [facility] 06-20-2022 12:40-0400 Diastolic blood pressure 70 mm[Hg] Charlene Grossman MD Work Phone: [facility] 06-20-2022 12:40-0400 Heart rate 88 /min Charlene Grossman MD Work Phone: [facility] 06-20-2022 12:40-0400 Respiratory rate 18 /min Charlene Grossman MD Work Phone: [facility] 06-20-2022 12:40-0400 SaO2% (BldA) [Mass fraction] 98 % Charlene Grossman MD Work Phone: [facility] 06-20-2022 12:40-0400 Systolic blood pressure 125 mm[Hg] Charlene Grossman MD Work Phone: [facility] 12-25-2021 13:03-0400 Body height 152.4 cm Ifeoma Davis MD Work Phone: [facility] 12-25-2021 13:03-0400 Body temperature 98.49 [degF] Ifeoma Davis MD Work Phone: [facility] 12-25-2021 13:03-0400 Body weight 73.03 kg Ifeoma Davis MD Work Phone: [facility] 12-25-2021 13:03-0400 Diastolic blood pressure 76 mm[Hg] Ifeoma Davis MD Work Phone: [facility] 12-25-2021 13:03-0400 Heart rate 100 /min Ifeoma Davis MD Work Phone: [facility] 12-25-2021 13:03-0400 Respiratory rate 12 /min Ifeoma Davis MD Work Phone: [facility] 12-25-2021 13:03-0400 SaO2% (BldA) [Mass fraction] 97 % Ifeoma Davis MD Work Phone: [facility] 12-25-2021 13:03-0400 Systolic blood pressure 132 mm[Hg] Ifeoma Davis MD Work Phone: [facility] 12-04-2021 13:11-0400 Body height 152.4 cm Destiney Helder DINNER COOK.TALENT MANAGER Work Phone: [facility] 12-04-2021 13:11-0400 Body weight 74.39 kg Destiney [place] DINNER COOK.TALENT MANAGER Work Phone: [facility] 12-04-2021 13:11-0400 Diastolic blood pressure 72 mm[Hg] Destiney [place] DINNER COOK.TALENT MANAGER Work Phone: [facility] 12-04-2021 13:11-0400 Systolic blood pressure 120 mm[Hg] Destiney Helder DINNER COOK.TALENT MANAGER Work Phone: [facility] Encounters Encounter Date Encounter Type Care Provider Facility Start: 06-22-2025 ambulatory [facility] Facility:[facility] Start: 06-21-2025 ambulatory [facility] Facility:[facility] Start: 06-14-2025 Encounter for other preprocedural examination [facility] Start: 06-14-2025 End: 06-14-2025 [facility] Facility:[facility] Start: 06-04-2025 End: 06-04-[address] Phillip Pozo DO [facility] Work Phone: Start: 06-04-2025 End: 06-04-[address] Ifeoma Davis MD Work Phone: -[facility] Start: 06-03-2025 End: 06-03-[address] Michael Cameron MD -[facility] Work Phone: Start: 06-03-2025 End: 06-03-[address] Ifeoma Davis MD Work Phone: -[facility] Start: 05-27-2025 End: 05-27-2025 Emergency department patient visit Dr. Juan Manuel Turpin MD -Emergency Department Work Phone: Start: 05-27-2025 Patient encounter procedure IFEOMA DAVIS [facility] Start: 05-27-2025 End: 05-27-2025 ambulatory [facility] Facility:[facility] Start: 05-17-2025 End: 05-17-2025 Telephone encounter Aislinn Mcmullen PA-C Work Phone: Pulmonary Medicine Comment on above: Refill Request Start: 05-07-2025 End: 05-07-[address] Ifeoma Davis MD Work Phone: -[facility] Start: 05-07-2025 End: 05-07-[address] Michael Cameron MD -[facility] Work Phone: Start: 05-07-2025 End: 05-07-2025 ambulatory [facility] Facility:[facility] Start: 04-28-2025 End: 04-29-2025 Telephone encounter Ifeoma Davis MD Work Phone: Internal Medicine [place] Start: 04-22-2025 End: 04-22-2025 Telephone encounter Ifeoma Davis MD Work Phone: Internal Medicine [place] Comment on above: Medication Problem Start: 04-22-2025 End: 04-22-2025 ambulatory [facility] Facility:[facility] Start: 04-22-2025 End: 04-22-2025 Office outpatient visit 25 minutes Ifeoma Davis MD Work Phone: Internal Medicine [place] Comment on above: Intertrigo (Primary Dx); Status post glaucoma surgery; Primary hypertension; DAYSI (obstructive sleep apnea); PXE (pseudoxanthoma elasticum); Poison boo dermatitis Start: 04-20-2025 End: 04-20-2025 [facility] Facility:[facility] Start: 04-20-2025 End: 04-20-2025 Postop follow up visit related to original px Cynthia Ramos MD Work Phone: [facility] Comment on above: Follow-up examinatio n after eye surgery (Primary Dx); Secondary glaucoma, indeterminate stage, bilateral Start: 04-16-2025 End: 04-16-[address] Edgar Beltran MD -[facility] Start: 04-16-2025 End: 04-16-[address] Ifeoma Davis MD Work Phone: -[facility] Start: 04-11-2025 End: 04-11-2025 Patient encounter procedure Aislinn Mcmullen PA-C Work Phone: [facility] [place] Comment on above: Viral URI with cough (Primary Dx) Start: 04-11-2025 End: 04-11-2025 [facility] Facility:[facility] Start: 04-03-2025 End: 04-03-2025 Telephone encounter Reynaldo Alford MD Work Phone: Ophthalmology Start: 04-02-2025 End: 04-02-2025 ambulatory [facility] Facility:[facility] Start: 04-02-2025 End: 04-02-2025 Patient encounter procedure Adriana Talbert MD Work Phone: Ophthalmology Comment on above: Follow-up examinatio n after eye surgery (Primary Dx) Start: 03-31-2025 End: 03-31-2025 Telephone encounter Ifeoma Davis MD Work Phone: Internal Medicine [place] Comment on above: Medication Problem Refill Request Start: 03-30-2025 End: 03-31-2025 Telephone encounter Adriana Talbert MD Work Phone: Ophthalmology Comment on above: Tearing OS Start: 03-26-2025 End: 03-26-2025 Telephone encounter Brittaney Mckeon MD Work Phone: Ophthalmology Start: 03-25-2025 End: 03-25-2025 [facility] Facility:[facility] Start: 03-24-2025 Encounter for other preprocedural examination [facility] Start: 03-24-2025 End: 03-24-2025 ambulatory [facility] Facility:[facility] Start: 03-24-2025 End: 03-24-2025 Admission to [...] Start: 03-24-2025 End: 03-24-2025 Preprocedural examination done [facility] [place] 1 Work Phone: [facility] Work Phone: Start: 03-24-2025 End: 03-24-2025 Telephone encounter Janet Martinez MD Work Phone: Ophthalmology Comment on above: Patient Question Start: 03-23-2025 End: 03-23-2025 Telephone encounter Cynthia Ramos MD Work Phone: [facility] Comment on above: Appointment (Urgent issue.) Start: 03-23-2025 End: 03-23-2025 Office consultation new/estab patient 60 min Janet Martinez MD Work Phone: Ophthalmology Comment on above: Leaking of conjuncti rah drainage bleb (Primary Dx) Start: 03-23-2025 End: 03-23-2025 ambulatory [facility] Facility:[facility] Start: 03-16-2025 End: 03-19-2025 ambulatory Ifeoma Davis MD Work Phone: Internal Medicine [facility] Start: 03-10-2025 End: 03-10-[address] Edgar Beltran MD -[facility] Start: 03-10-2025 End: 03-10-[address] Ifeoma Davis MD Work Phone: -[facility] Start: 03-02-2025 End: 03-02-2025 Nursing evaluation of patient and report Mi Nurse Work Phone: [facility] [place] Comment on above: Immunization due (Pr imary Dx) Start: 03-02-2025 End: 03-02-2025 [facility] Facility:[facility] Start: 03-01-2025 End: 03-02-2025 Telephone encounter Ifeoma Davis MD Work Phone: [facility] [place] Comment on above: Orders Start: 02-25-2025 End: 02-25-2025 Telephone encounter Ifeoma Davis MD Work Phone: Internal Medicine [place] Comment on above: TDAP order Start: 01-12-2025 End: 01-13-2025 Telephone encounter Michelle Becerril APRN.TALENT MANAGER Work Phone: Neurology Comment on above: DME Order Request Start: 12-30-2024 End: 12-30-2024 Telephone encounter Michelle Becerril APRN.TALENT MANAGER Work Phone: Neurology Comment on above: Results Start: 12-29-2024 End: 12-29-2024 Office outpatient visit 25 minutes Ifeoma Davis MD Work Phone: Internal Medicine [place] Comment on above: Primary hypertension (Primary Dx); Depression, unspecified depression type; Trigger finger, unspecified finger, unspecified laterality; Hypokalemia; Anxiety; Legally blind; Sleep apnea, unspecified type Start: 12-29-2024 End: 12-29-2024 [facility] Facility:[facility] Start: 12-23-2024 End: 12-23-2024 Refill Ifeoma Davis MD Work Phone: [facility] [place] Comment on above: Refill Request Start: 12-17-2024 End: 12-17-2024 Follow-up encounter Michelle Becerril APRN.TALENT MANAGER Work Phone: Neurology Comment on above: Results Start: 12-09-2024 End: 12-09-[address] Phillip Pozo DO -[facility] Work Phone: Start: 12-09-2024 End: 12-09-2024 ambulatory [facility] Facility:[facility] Start: 12-07-2024 End: 12-08-2024 Telephone encounter Ifeoma Davis MD Work Phone: Internal Medicine [place] Comment on above: Patient Question Start: 12-01-2024 End: 12-07-2024 Telephone encounter Michelle Becerril APRN.TALENT MANAGER Work Phone: Neurology Comment on above: Results Start: 11-24-2024 End: 11-24-[address] Ifeoma Davis MD Work Phone: [facility] Work Phone: Start: 11-24-2024 End: 11-24-2024 [facility] Start: 11-24-2024 End: 11-24-[address] Edgar Beltran MD -[facility] Start: 11-24-2024 End: 11-24-2024 ambulatory Edgar Beltran Facility:[facility] Start: 11-24-2024 End: 11-24-2024 ambulatory [facility] Facility:[facility] Start: 11-20-2024 End: 11-20-2024 Telephone encounter David Anna APRN.TALENT MANAGER Work Phone: Internal Medicine [place] Comment on above: Results, Lab Start: 11-19-2024 End: 11-19-2024 ambulatory [facility] Facility:[facility] Start: 11-19-2024 End: 11-19-2024 Patient encounter procedure David Anna APRN.CNP Work Phone: [facility] [place] Comment on above: Hypertension, unspec ified type (Primary Dx); Dry mouth; Depression, unspecified depression type; Anxiety; Other fatigue; DAYSI (obstructive sleep apnea) Start: 11-17-2024 End: 12-18-2024 Patient encounter procedure Sleep [facility] [place] Bed [facility] Comment on above: Snoring; Excessive daytime sleepiness; Non-restorative sleep; PLMD (periodic limb movement disorder); Primary hypertension Start: 11-17-2024 End: 11-17-2024 ambulatory [facility] Facility:[facility] Start: 11-05-2024 End: 11-05-2024 Follow-up encounter Ifeoma Davis MD Work Phone: Geriatrics Start: 11-03-2024 End: 11-03-2024 ambulatory [facility] Facility:[facility] Start: 11-03-2024 End: 11-03-2024 Office outpatient visit 25 minutes Ifeoma Davis MD Work Phone: [facility] [place] Comment on above: Vitamin D deficiency (Primary Dx); Dry mouth; Vitamin B12 deficiency; Iron deficiency; Other fatigue Start: 11-02-2024 End: 11-02-2024 Follow-up encounter Britta ESCUDERO Work Phone: [place] [facility] Start: 10-31-2024 End: 10-31-2024 ambulatory [facility] Facility:[facility] Start: 10-31-2024 End: 10-31-2024 Patient encounter procedure Chantal Segura APRN.CNP Work Phone: [place] [facility] Comment on above: Dysuria (Primary Dx) ; Acute lower UTI Start: 10-22-2024 End: 12-22-2024 Follow-up encounter Destiney Pendleton APRN.CNP Work Phone: OB/Gynecology Start: 10-21-2024 End: 10-21-2024 ambulatory [facility] Facility:[facility] Start: 10-21-2024 Encounter for gynecological examination (general) (routine) without abnormal findings IFEOMA DAVIS [facility] Start: 10-21-2024 End: 10-21-2024 Patient encounter status Screen [facility] [place] Start: 10-21-2024 End: 10-21-2024 Subsequent hospital visit by physician Screen Mammo [facility] Comment on above: Encounter for gyneco logical examination (general) (routine) without abnormal findings [Z01.419] Start: 10-13-2024 End: 10-13-2024 ambulatory [facility] Facility:[facility] Start: 10-13-2024 End: 10-13-2024 Office outpatient visit 15 minutes Cynthia Ramos MD Work Phone: [facility] Comment on above: Secondary glaucoma, indeterminate stage, bilateral (Primary Dx); Angioid streaks of macula; Pseudoxanthoma elasticum Start: 10-12-2024 End: 10-12-2024 [facility] Start: 10-12-2024 End: 10-12-2024 Office outpatient visit 25 minutes Ifeoma Davis MD Work Phone: [facility] [place] Comment on above: Anxiety (Primary Dx) ; Screening for depression; Encounter for screening examination for other mental health and behavioral disorders; Dry mouth; Insomnia, unspecified type; Current moderate episode of major depressive disorder without prior episode (HCC) Start: 10-07-2024 End: 10-07-2024 [facility] Start: 10-07-2024 End: 10-07-2024 Patient encounter procedure Calli Gerber [employer].TALENT MANAGER Work Phone: Internal Medicine [place] Comment on above: Memory impairment (P rimary Dx); Dry mouth; Depression, unspecified depression type Start: 10-07-2024 End: 10-12-2024 Telephone encounter Ifeoma Davis MD Work Phone: Internal Medicine [place] Comment on above: Future Appointment Patient Question Start: 09-29-2024 End: 09-29-2024 ambulatory IFEOMA DAVIS Facility:[facility] Start: 09-29-2024 End: 09-29-2024 Office outpatient visit 25 minutes Ifeoma Davis MD Work Phone: [facility] [place] Comment on above: Depression, unspecif ied depression type (Primary Dx); Encounter for immunization; Insomnia, unspecified type Start: 09-25-2024 End: 04-10-2025 Telephone encounter Michelle Becerril APRN.TALENT MANAGER Work Phone: Neurology Comment on above: [employer] Start: 09-24-2024 End: 09-24-2024 Patient encounter procedure Michelle Becerril APRN.TALENT MANAGER Work Phone: Neurology Comment on above: Excessive daytime sl eepiness (Primary Dx); Non-restorative sleep Start: 09-24-2024 End: 09-24-2024 ambulatory [facility] Facility:[facility] Start: 09-15-2024 End: 09-15-2024 [facility] Facility:[facility] Start: 09-15-2024 End: 09-15-2024 Patient encounter procedure Destiney Pendleton APRN.TALENT MANAGER Work Phone: OB/Gynecology Comment on above: Vasomotor symptoms d ue to menopause (Primary Dx) Start: 09-08-2024 End: 09-08-2024 Refill Ifeoma Davis MD Work Phone: Internal Medicine [place] Comment on above: Refill Request Start: 08-12-2024 End: 04-13-2025 Telephone encounter Ifeoma Davis MD Work Phone: Internal Medicine [place] Comment on above: Patient Update Start: 08-10-2024 End: 08-10-2024 [facility] Start: 08-10-2024 End: 08-10-2024 Patient encounter procedure [facility] [place] Comment on above: Population Health Na vigation Outreach [facility] Start: 07-27-2024 End: 08-05-2024 Telephone encounter Ifeoma Davis MD Work Phone: [facility] [place] Comment on above: Results Start: 07-22-2024 End: 07-22-2024 ambulatory [facility] Facility:[facility] Start: 07-15-2024 End: 07-15-2024 ambulatory Edgar Ruby Facility:[facility] Start: 07-10-2024 End: 07-10-2024 Telephone encounter Ifeoma Davis MD Work Phone: Internal Medicine [place] Comment on above: Fax Request Start: 07-09-2024 End: 07-09-2024 Telephone encounter Adriana Vidal APRN.TALENT MANAGER Work Phone: [place] [facility] Comment on above: Results Start: 07-08-2024 End: 07-08-2024 ambulatory [facility] Facility:[facility] Start: 07-08-2024 End: 07-08-2024 Patient encounter procedure Letty Silva APRN.TALENT MANAGER Work Phone: [place] [facility] Comment on above: Close exposure to [place] VID-19 virus (Primary Dx) Start: 07-07-2024 End: 07-09-2024 Refill Ifeoma Davis MD Work Phone: Family Medicine [place] Comment on above: Refill Request Orders Start: 06-29-2024 End: 06-30-2024 Refill Ifeoma Davis MD Work Phone: Family [facility] Comment on above: Refill Request Start: 06-15-2024 End: 06-15-2024 ambulatory Chana Bridges [facility] [place] Start: 06-15-2024 End: 06-15-2024 Patient encounter procedure Chana Bridges MA [facility] [place] Comment on above: Population Health Na vigation Outreach (Med Adherence) Start: 06-12-2024 End: 06-12-2024 ambulatory Jon Ross MA [facility] [place] Start: 06-12-2024 End: 06-12-2024 Patient encounter procedure Jon Ross MA [facility] [place] Comment on above: [facility] Start: 05-29-2024 End: 05-29-2024 ambulatory Eileen Quinteros [facility] [place] Start: 05-29-2024 End: 05-29-2024 Patient encounter procedure Eileen Quinteros [facility] [place] Comment on above: Population Health Na vigation Outreach (Med adherence ) Start: 05-14-2024 End: 06-29-2024 Telephone encounter Ifeoma Davis MD Work Phone: Internal Medicine [place] Comment on above: Patient Question Start: 05-06-2024 End: 05-11-2024 Telephone encounter Cyntiha Ramos MD Work Phone: [facility] Comment on above: Letter Start: 05-01-2024 End: 05-06-2024 Telephone encounter Cynthia Ramos MD Work Phone: [facility] Comment on above: Letter Start: 2024 End: 2024 Refill Ifeoma Davis MD Work Phone: [facility] [place] Comment on above: Refill Request Start: 04-13-2024 Telephone encounter Cynthia cheatham MD Work Phone: [facility] Comment on above: Patient Update Start: 04-11-2024 End: 04-11-2024 Patient encounter procedure Britta ESCUDERO Work Phone: [place] [facility] Comment on above: Allergic contact roman matitis due to plants, except food (Primary Dx) Start: 04-02-2024 Telephone encounter Ifeoma deluna MD Work Phone: Internal Medicine [place] Comment on above: Results Start: 03-31-2024 End: 03-31-2024 Office outpatient visit 25 minutes Ifeoma Davis MD Work Phone: [facility] [place] Comment on above: Annual wellness visi t (Primary Dx); 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 injury; Primary hypertension; Trigger finger, unspecified finger, unspecified laterality; Special screening examination for viral disease; Screening for HIV (human immunodeficiency virus); Legally blind; Mixed hyperlipidemia Start: 03-31-2024 End: 03-31-2024 Patient encounter procedure Ifeoma Davis MD Work Phone: [facility] Start: 03-17-2024 ambulatory Ifeoma Sampson Work Phone: Internal Medicine [facility] Start: 02-18-2024 End: 02-18-2024 Office outpatient visit 15 minutes Cynthia Ramos MD Work Phone: [facility] Comment on above: Secondary glaucoma, indeterminate stage, bilateral (Primary Dx); Pseudoxanthoma elasticum; Angioid streaks of macula; Pseudophakia of both eyes; Legally blind Start: 01-01-2024 Refill David DenaTALENT MANAGER Work Phone: Internal Medicine [place] Comment on above: Refill Request Start: 12-25-2023 Telephone encounter David Anna APRN.CNP Work Phone: Internal Medicine [place] Comment on above: Medication Request Start: 12-24-2023 End: 12-24-2023 Patient encounter procedure Destiney Pendleton APRN.CNP Work Phone: OB/Gynecology Comment on above: Encounter for gyneco logical examination (general) (routine) without abnormal findings (Primary Dx); Encounter for screening for human papillomavirus (HPV); Pap smear for cervical cancer screening; Encounter for screening mammogram for breast cancer Start: 12-24-2023 End: 12-24-2023 Patient encounter status Destiney Pendleton APRN.CNP Work Phone: [facility] Start: 12-04-2023 End: 12-04-[address] Ifeoma Davis Work Phone: [facility] Work Phone: Start: 12-04-2023 End: 12-04-[address] Ifeoma Davis Work Phone: [facility] Work Phone: Start: 11-18-2023 End: 11-18-2023 Patient encounter procedure Adriana Vidal APRN.TALENT MANAGER Work Phone: [facility] Comment on above: Bacterial sinusitis (Primary Dx) Start: 11-13-2023 Refill Ifeoma Sampson Work Phone: [facility] [place] Comment on above: Refill Request Start: 11-06-2023 End: 11-06-[address] Ifeoma Davis Work Phone: [facility] Work Phone: Start: 10-25-2023 ambulatory Alessandra Lora [place] [facility] [place] Comment on above: Population Health Na vigation Outreach ([place] [facility]) Start: 10-11-2023 Documentation procedure Mammog lien Coordinator [facility] Start: 10-11-2023 Letter encounter Mammography Coordinator [facility] Department Start: 10-10-2023 End: 10-10-2023 Subsequent hospital visit by physician Screen Mammo [facility] Comment on above: Encounter for screen ing mammogram for breast cancer [Z12.31] Start: 10-08-2023 Telephone encounter Ifeoma deluna MD Work Phone: Internal Medicine [place] Comment on above: Patient Update Start: 10-04-2023 ambulatory Mary Salinas [facility] [place] Comment on above: Population Health Na vigation Outreach ([place] [facility] ) Start: 07-23-2023 Refill Virginia Avalos PA-C Work Phone: Internal Medicine [place] Comment on above: Refill Request Start: 06-25-2023 Refill Ifeoma Sampson Work Phone: [address] [place] [address] Comment on above: Erroneous encounter- disregard Start: [...] encounter Ifeoma deluna MD Work Phone: Internal [facility] Comment on above: Handicapped Placard Renewal Start: 05-03-2023 Refill Calli DeanTALENT MANAGER Work Phone: Internal [facility] Comment on above: Refill Request Start: 04-30-2023 End: 04-30-2023 Patient encounter procedure Cande Pozo PA-C Work Phone: Gastroenterology [place] Comment on above: Gastroesophageal ref lux disease, unspecified whether esophagitis present (Primary Dx); Change in bowel habits Start: 04-25-2023 End: 04-25-2023 Patient encounter procedure Massimo Hicks MD Work Phone: Orthopaedics Comment on above: Numbness and tinglin g in right hand (Primary Dx) Start: 04-09-2023 Telephone encounter Ifeoma deluna MD Work Phone: Internal [facility] Comment on above: requesting lab order Start: 02-19-2023 End: 02-19-2023 Office outpatient visit 15 minutes Cynthia Ramos MD Work Phone: [facility] Comment on above: Secondary glaucoma, indeterminate stage, bilateral (Primary Dx); Pseudoxanthoma elasticum; Pseudophakia of both eyes Start: 01-27-2023 Refill David DeanTALENT MANAGER Work Phone: Internal [facility] Comment on above: Refill Request Start: 01-01-2023 End: 01-01-2023 ambulatory [facility] Work Phone: Start: 01-01-2023 End: 01-01-2023 Discharged Recurring [facility]-Occupational Therapy Start: 12-12-2022 Refill Ifeoma Sampson Work Phone: Internal [facility] Comment on above: Refill Request (SEE RX NOTES) Start: 12-04-2022 End: 12-04-2022 Postop follow up visit related to original px Cynthia Ramos MD Work Phone: [facility] Comment on above: Follow-up exam (Prim terra Dx); Vitreous prolapse of left eye Start: 11-22-2022 End: 11-22-2022 Postop follow up visit related to original px Cynthia Ramos MD Work Phone: [facility] Comment on above: Follow-up exam (Prim terra Dx) Start: 11-19-2022 End: 11-19-2022 Patient encounter procedure Taina Patino PA-C Work Phone: Orthopaedics Comment on above: Trigger ring finger of right hand (Primary Dx); Trigger middle finger of left hand Follow-up exam (Prim terra Dx) Start: 11-19-2022 Telephone encounter Henrik Chen MD Work Phone: [facility] Comment on above: Eye Problem Patient Question; Nu rse To Address Start: 11-16-2022 End: 11-16-2022 Patient encounter procedure Cynthia Ramos MD Work Phone: [facility] Comment on above: Follow-up exam (Prim terra Dx) Start: 11-13-2022 Telephone encounter Cynthia cheatham MD Work Phone: [facility] Comment on above: Appointment Start: 11-07-2022 End: 11-07-2022 ambulatory MASSIMO HICKS [facility] Start: 11-05-2022 Telephone encounter Massimo monterroso MD Work Phone: Orthopaedics Comment on above: Patient Question Start: 11-01-2022 Telephone encounter Massimo monterroso MD Work Phone: Orthopaedics Comment on above: Appointment (Siena ding regarding surgery) Start: 10-31-2022 End: 10-31-2022 ambulatory WOLF MASON Facility:[id number] Start: 10-31-2022 End: 10-31-2022 ambulatory Michelle Perez OT/L [facility] [place] Comment on above: Blindness right eye category 3, blindness left eye category 4 (Primary Dx); Complaints of difficulty with reading; Difficulty with household tasks; Impaired mobility and personal care; Personal care impairment Start: 10-29-2022 End: 10-29-2022 Patient encounter procedure A-Scan Opht Freda Work Phone: [facility] Comment on above: 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 Work Phone: Radiology Comment on above: Abnormal mammogram [ R92.8] Start: 10-17-2022 End: 10-17-2022 [facility]ulatory [facility]:[id number] Start: 10-17-2022 End: 10-17-2022 ambulatory Michelle Perez OT/L [facility] [place] Comment on above: Difficulty with hous ehold tasks (Primary Dx); Blindness right eye category 3, blindness left eye category 4; Impaired mobility and personal care; Personal care impairment; Complaints of difficulty with reading Start: 10-16-2022 End: 10-16-2022 Patient encounter procedure Ifeoma Davis MD Work Phone: Internal Medicine [place] Comment on above: Gastroesophageal ref lux disease with esophagitis, unspecified whether hemorrhage (Primary Dx); Pre-operative clearance; Trigger finger, unspecified finger, unspecified laterality; Primary hypertension; Mixed hyperlipidemia; PAD (peripheral artery disease) ([facility]); PXE (pseudoxanthoma elasticum); Hot flashes Start: 10-16-2022 End: 10-16-2022 Preoperative state Ifeoma Davis MD Work Phone: Internal Medicine [place] Start: 10-09-2022 Telephone encounter Liliya medrano MD Work Phone: Mammography Comment on above: Mammogram Result Favio l Back Start: 10-09-2022 End: 10-09-2022 Subsequent hospital visit by physician Xr [facility] Work Phone: Radiology Start: 10-02-2022 Telephone encounter Ifeoma deluna MD Work Phone: [facility] [place] Comment on above: Medication Request Start: 10-01-2022 End: 10-01-2022 Orders Only Massimo Hicks MD Work Phone: Orthopaedics Comment on above: Pain in both hands ( Primary Dx) Schedule Surgery Trigger ring finger of right hand (Primary Dx); Trigger middle finger of left hand Pain in both hands [ M79.641, M79.642] Start: 09-28-2022 Documentation procedure Mammog lien Coordinator [facility] Start: 09-28-2022 Letter encounter Mammography Coordinator [facility] Department Start: 09-28-2022 Telephone encounter Destiney [facility] ryan FONSECA Work Phone: OB/Gynecology Comment on above: Orders Start: 09-27-2022 ambulatory Ifeoma Sampson Work Phone: [facility] [place] Comment on above: Upcoming visit on Start: 09-27-2022 Patient encounter procedure Ifeoma Davis MD Work Phone: [facility] [place] Start: 09-27-2022 End: 09-27-2022 Subsequent hospital visit by physician Screen Mammo [facility] Comment on above: Encounter for screen ing mammogram for breast cancer [Z12.31] Start: 09-25-2022 End: 09-25-2022 Patient encounter procedure Cynthia Ramos MD Work Phone: [facility] Comment on above: Nuclear senile catar act of left eye (Primary Dx); Primary open angle glaucoma (POAG) of left eye, severe stage Start: 09-19-2022 End: 09-19-2022 ambulatory WOLF MASON Facility:[id number] Start: 09-19-2022 Telephone encounter Wolf mclean OD Work Phone: [facility] Comment on above: Follow Up Phone Call Start: 09-19-2022 End: 09-19-2022 ambulatory Michelle Perez OT/L [facility] Occupation Therapy [place] Comment on above: Blindness right eye category 3, blindness left eye category 4 (Primary Dx); Difficulty with household tasks; Impaired mobility and personal care; Personal care impairment; Complaints of difficulty with reading Start: 08-16-2022 End: 08-16-2022 Patient encounter procedure Wolf Mason OD Work Phone: [facility] Comment on above: Blindness right eye category 3, blindness left eye category 4 (Primary Dx); Pseudophakia, right eye; Combined 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 cataract, left eye; Hyperopia of right eye Start: 08-10-2022 Refill Ifeoma Sampson Work Phone: [facility] [place] Comment on above: Refill Request Start: 07-24-2022 End: 07-24-2022 Patient encounter procedure Jonathon Johnson MD Work Phone: Ophthalmology Comment on above: Pseudophakia, right eye (Primary Dx) Start: 07-23-2022 Refill Destiney Helder MURTAZA.TALENT MANAGER Work Phone: OB/Gynecology Comment on above: Refill Request Medication Problem ( flonase) Start: 07-04-2022 Telephone encounter Ifeoma deluna MD Work Phone: Internal Medicine [place] Comment on above: Patient Update Start: 07-03-2022 End: 07-03-2022 Patient encounter procedure Jonathon Johnson MD Work Phone: Ophthalmology Comment on above: Pseudophakia, right eye (Primary Dx) Start: 06-29-2022 End: 06-29-2022 Patient encounter procedure Valentien Torres OD Work Phone: Ophthalmology Comment on above: Photopsia (Primary D x); Pseudophakia, right eye; Combined 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 cataract, left eye; Primary open angle glaucoma (POAG) of both eyes, indeterminate stage; Angioid streaks of macula Start: 06-28-2022 Telephone encounter Jonathon graves MD Work Phone: [facility] Comment on above: [employer] 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 Start: 06-26-2022 End: 06-26-2022 Patient encounter procedure Jonathon Johnson MD Work Phone: [facility] Comment on above: Pseudophakia (Primar y Dx) Start: 06-25-2022 ambulatory JONATHON JOHNSON Facility: [facility] Start: 06-25-2022 End: 06-25-2022 Subsequent hospital visit by physician Jonathon Johnson MD Work Phone: [facility] Comment on above: 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 [H25.811]Photopsia [H53.19] Start: 06-22-2022 Refill Jonathon Johnson MD Work Phone: [facility] Comment on above: Refill Request (Pre- op drops) Medication Problem Start: 06-20-2022 Telephone encounter Jonathon graves MD Work Phone: [facility] Comment on above: Appointment Start: 06-20-2022 End: 06-20-2022 Patient encounter procedure Charlene Grossman MD Work Phone: [facility] Cardiology [place] Comment on above: PXE (pseudoxanthoma elasticum) (Primary Dx); Obesity, Class I, BMI 30-34.9 Start: 05-11-2022 Refill Ifeoma Sampson Work Phone: [facility] [place] Comment on above: Refill Request Patient Question (Re quest medication not on med list please) Start: 05-03-2022 End: 05-03-2022 Patient encounter procedure Massimo Hicks MD Work Phone: Orthopaedics Comment on above: Pain in both hands ( Primary Dx); Trigger middle finger of left hand; Trigger ring finger of right hand Start: 04-25-2022 Telephone encounter Jonathon graves MD Work Phone: [facility] Comment on above: Preparations For Sharath zaki (IOL Order Right Eye for 06/25/22 surgery) Start: 04-12-2022 End: 04-12-2022 Patient encounter procedure Jonathon Johnson MD Work Phone: Ophthalmology Comment on above: 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 (Primary Dx); Combined 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 cataract of left eye Start: 04-03-2022 End: 04-03-2022 Patient encounter procedure Jonathon Johnson MD Work Phone: Ophthalmology Comment on above: Photopsia (Primary D x); Combined 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 cataract of both eyes; Primary open angle glaucoma (POAG) of both eyes, indeterminate stage; Combined form of age-related cataract, both eyes Start: 03-27-2022 End: 03-27-2022 Patient encounter procedure Cynthia Ramos MD Work Phone: [facility] Comment on above: Primary open angle g laucoma (POAG) of both eyes, indeterminate stage (Primary Dx); Corneal dellen of left eye; Nuclear senile cataract of right eye Start: 03-20-2022 ambulatory Ifeoma Sampson Work Phone: Internal Medicine [facility] Start: 03-14-2022 End: 03-14-2022 Patient encounter procedure Jonathon Johnson MD Work Phone: Ophthalmology Comment on above: Photopsia (Primary D x); Primary open angle glaucoma (POAG) of both eyes, indeterminate stage; Combined form of age-related cataract, both eyes; Marginal corneal ulcer of left eye; Angioid streaks of macula Start: 03-02-2022 Telephone encounter Jonathon graves MD Work Phone: [facility] Comment on above: Lab & Test Results Start: 02-27-2022 End: 02-27-2022 Patient encounter procedure Jonathon Johnson MD Work Phone: [facility] Comment on above: Photopsia (Primary D x); Primary open angle glaucoma (POAG) of both eyes, indeterminate stage; Combined form of age-related cataract, both eyes; Marginal corneal ulcer of left eye Start: 02-10-2022 Telephone encounter Lowell Kelly APRN.CNP Work Phone: [facility] Comment on above: Results Start: 02-09-2022 Refill Ifeoma Sampson Work Phone: [facility] [place] Comment on above: Refill Request Start: 02-07-2022 Telephone encounter Jonathon graves MD Work Phone: [facility] Comment on above: Medication Problem Start: 01-12-2022 Refill Destiney Pendleton APRN.TALENT MANAGER Work Phone: OB/Gynecology Comment on above: Refill Request Start: 12-25-2021 End: 12-25-2021 Patient encounter procedure Ifeoma Davis MD Work Phone: [facility] [place] Comment on above: PXE (pseudoxanthoma elasticum) (Primary Dx); Vertigo; Memory deficits; New daily persistent headache; Chronic mixed headache syndrome Start: 12-19-2021 End: 12-19-2021 Patient encounter procedure Cynthia Ramos MD Work Phone: [facility] Comment on above: Follow-up exam (Prim terra Dx); Photopsia; 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 Start: 12-07-2021 Telephone encounter Ifeoma deluna MD Work Phone: Internal Medicine [place] Comment on above: Patient Question Start: 12-04-2021 End: 12-04-2021 Patient encounter procedure Destiney Pendleton APRN.TALENT MANAGER Work Phone: OB/Gynecology Comment on above: Encounter for gyneco logical examination (general) (routine) without abnormal findings (Primary Dx); Encounter for screening mammogram for breast cancer Start: 12-04-2021 End: 12-04-2021 Patient encounter status Destiney Pendleton APRN.TALENT MANAGER Work Phone: OB/Gynecology Start: 11-28-2021 End: 11-28-2021 Patient encounter procedure Cynthia Ramos MD Work Phone: [facility] Comment on above: Follow-up exam (Prim terra Dx) Procedures Date Procedure Procedure Detail Performing Clinician Start: 05-07-2025 MRI of lumbar spine Dr. Ifeoma Davis MD Work Phone: Start: 04-16-2025 X-ray of lumbosacral spine Dr. Ifeoma obando MD Work Phone: Start: 03-23-2025 Ophthalmic us dx corneal pachymetry uni/bi Janet Martinez MD Work Phone: Start: 03-23-2025 End: 03-23-2025 Fundus photography w/interpretation & report Janet Martinez MD Work Phone: Start: 03-10-2025 X-ray of lumbar spine, two or three views Dr. Ifeoma Davis MD Work Phone: Start: 11-24-2024 Plain X-ray of hip Dr. Ifeoma Davis MD Work Phone: Start: 11-24-2024 Plain x-ray of pelvis and lower extremity Dr. Ifeoma Davis MD Work Phone: Start: 11-17-2024 Polysomnogram Michelle Becerril APRN.TALENT MANAGER Work Phone: Start: 10-31-2024 Urnls dip stick/tablet rgnt auto w/o microscopy [facility] Start: 10-13-2024 Computerized ophthalmic imaging retina Cynthia Ramos MD Work Phone: Start: 10-12-2024 Adult depression screening assessment Michelle Becerril APRN.TALENT MANAGER Work Phone: Start: 03-27-2024 Lipid 1996 panel [...] MD Work Phone: Start: 08-20-2023 End: 08-20-2023 [facility] medical xm&eval comprhnsv estab pt 1/> Secondary [...] uni real time with image limited Destiney [place] [employer].TALENT MANAGER Work Phone: Start: 10-23-2022 Digital breast tomosynthesis unilateral Destiney [place] [employer].TALENT MANAGER Work Phone: Start: 10-16-2022 Ecg routine ecg w/least 12 lds i&r only [facility] Provider Start: 10-15-2022 Lipid 1996 panel - Serum or Plasma Massimo Hicks MD Work Phone: Start: 10-09-2022 Radex shoulder complete minimum 2 views [facility] Provider Start: 10-01-2022 Radex hand minimum 3 views Massimo levin MD Work Phone: Start: 09-27-2022 End: 09-27-2022 Mammography Destiney [place] [employer].TALENT MANAGER Work Phone: Start: 06-29-2022 Computerized ophthalmic imaging retina Valentine Torres OD Work Phone: Start: 04-12-2022 IOL BIOMETRY W/ IOL CALC OU (BOTH EYES) Jonathon Johnson MD Work Phone: Start: 04-03-2022 Computerized corneal topography uni/bi Jonathon Johnson MD Work Phone: Start: 03-27-2022 Visual field xm uni/bi w/interp extended exam Cynthia Ramos MD Work Phone: Start: 03-14-2022 Computerized ophthalmic imaging retina Jonathon Johnson MD Work Phone: Start: 08-21-2021 Mammography Cynthia [...] DTaP,Tdap,Td Vaccine (2 - Td or Tdap) [facility] Start: 03-27-2029 Lipid panel Lipid Screening [facility] Start: 12-23-2028 Screening for malignant neoplasm of cervix [facility] Start: 05-30-2028 Colonoscopy Colonoscopy [facility] Start: 05-30-2028 Colorectal Cancer Screening Colorectal Cancer Screening [facility] Start: 05-30-2028 Screening for malignant neoplasm of colon [facility] Start: 03-24-2028 Diabetes Screening Diabetes Screening [facility] Start: 11-20-2027 Diabetes Screening Diabetes Screening [facility] Start: 10-15-2027 Lipid 1996 panel - Serum or Plasma Lipid Screening [facility] Start: 10-15-2027 Lipid panel Lipid Screening [facility] Start: 10-15-2027 LIPID SCREEN LIPID SCREEN [facility] Start: 03-27-2027 Diabetes Screening Diabetes Screening [facility] Start: 08-15-2026 LIPID SCREEN LIPID SCREEN [facility] Start: 05-21-2026 Diabetes Screening Diabetes Screening [facility] Start: 05-04-2026 End: 10-11-2026 VISUAL FIELD 24-2 OU (BOTH EYES) VISUAL FIELD 24-2 OU (BOTH EYES) [facility] Imaging Routine Secondary glaucoma, indeterminate stage, bilateral Expected: 05/04/2026, Expires: 10/11/2026 [facility] Work Phone: Comment on above: Expected: 05/04/2026, Expires: Start: 04-22-2026 Annual PCP Team Chronic Disease Visit Annual PCP Team Chronic Disease Visit [facility] Start: 12-29-2025 Annual PCP Team Chronic Disease Visit Annual PCP Team Chronic Disease Visit [facility] Start: 12-29-2025 BP Controlled (<130/80) BP Controlled (<130/80) [facility] Start: 11-19-2025 Annual PCP Team Chronic Disease Visit Annual PCP Team Chronic Disease Visit [facility] Start: 11-19-2025 BP Controlled (<130/80) BP Controlled (<130/80) [facility] Start: 11-03-2025 Annual PCP Team Chronic Disease Visit Annual PCP Team Chronic Disease Visit [facility] Start: 11-03-2025 BP Controlled (<130/80) BP Controlled (<130/80) [facility] Start: 10-21-2025 Screening for malignant neoplasm of breast Mammogram Screening [facility] Start: 10-15-2025 DIABETES SCREEN DIABETES SCREEN [facility] Start: 10-12-2025 Annual PCP Team Chronic Disease Visit Annual PCP Team Chronic Disease Visit [facility] Start: 10-12-2025 Anxiety Screening Anxiety Screening [facility] Start: 10-12-2025 BP Controlled (<130/80) BP Controlled (<130/80) [facility] Start: 10-12-2025 Covid-19 Vaccine () Covid-19 Vaccine () [facility] Comment on above: Postponed from 05/03/2024 (Declined at t his time) Start: 10-12-2025 Depression Screening Depression Screening [facility] Start: 10-07-2025 Annual PCP Team Chronic Disease Visit Annual PCP Team Chronic Disease Visit [facility] Start: 10-07-2025 BP Controlled (<130/80) BP Controlled (<130/80) [facility] Start: 09-29-2025 Annual PCP Team Chronic Disease Visit Annual PCP Team Chronic Disease Visit [facility] Start: 09-15-2025 BP Controlled (<130/80) BP Controlled (<130/80) [facility] Start: 07-23-2025 End: 07-23-2025 Patient encounter procedure 07/23/2025 2:00 PM EST Office Visit [facility] [place] [address] [place] [address] Ifeoma Davis MD [address] [place] [address] 3 month F/U [facility] [place] Comment on above: 3 month F/U Start: 06-09-2025 End: 06-09-2025 Patient encounter procedure 06/09/2025 12:30 PM EDT Office Visit [facility] Op[facility] [address] [address] Adriana Talbert MD [address] [place] [address] Diagnostics, [facility] [address] [address] 10 WEEK OUTCOME Ophthalmology Comment on above: 10 WEEK OUTCOME Start: 06-04-2025 Plain x-ray of pelvis and lower extremity HIP, UNI W/ Pelvis 2-3 Views [facility] Start: 06-04-2025 XR Pelvis and Hip Views [facility] Start: 05-27-2025 [facility] Start: 05-27-2025 End: 05-27-2025 Emergency department patient visit Depart[facility] Emergency -Emergency Department Work Phone: Start: 05-27-2025 End: 05-27-2025 Patient encounter procedure 05/27/2025 9:20 AM EDT Office Visit [facility] [place] [address] [place] [address] Ifeoma Davis MD [address] [facility], [place] [id number] Wellness [facility] [place] Comment on above: Wellness Start: 05-18-2025 End: 05-18-2025 Patient encounter procedure 05/18/2025 11:00 AM EDT Office Visit OPHT [facility] [address] [place] [address] Cynthia Ramos MD [address] [place] [address] [phone] 4 week VaTa [facility] Comment on above: 4 week VaTa Start: 05-12-2025 End: 05-12-2025 Patient encounter procedure 05/12/2025 11:00 AM EDT Office Visit [facility] [address] [address] Adriana Talbert MD [address] [place] [id number] Diagnostics[facility] [address] [address] 6 WEEK OUTCOME Ophthalmology Comment on above: 6 WEEK OUTCOME Start: 05-03-2025 DIABETES SCREEN DIABETES SCREEN [facility] Start: 05-03-2025 Influenza vaccination [facility] Start: 04-28-2025 End: 04-28-2025 Patient encounter procedure 04/28/2025 11:00 AM EDT Office Visit [facility] [address] [address] Adriana Talbert MD [address] [place] [address] Diagnostics[facility] [address] [address] 3 WEEK POST OP Ophthalmology Comment on above: 3 WEEK POST OP Start: 04-22-2025 End: 04-22-2025 Patient encounter procedure 04/22/2025 10:20 AM EDT Office Visit [facility] [place] [address] [place] [address] Ifeoma Davis MD [address] [place] [address] 3 month follow up [facility] [place] Comment on above: 3 month follow up Start: 04-20-2025 End: 04-20-2025 Patient encounter procedure 04/20/2025 9:30 AM EDT Office Visit [facility] [address] [place] [address] Cynthia Ramos MD [address] [place] [address] SP 6 months refraction HVF 24-2 large size V [facility] Comment on above: SP 6 months refraction HVF 24-2 large si ze V Start: 04-16-2025 X-ray of lumbosacral spine L/S Spine Bending Flex/Ext [facility] Start: 04-16-2025 XR Spine Lumbar and Sacrum Views [facility] Start: 04-12-2025 Subsequent hospital visit by physician 04/12/2025 Hospital Encounter Ophthalmology [address] [address] Janet Martinez MD [address] [place] [address] 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, T81.31XA] Ophthalmology Comment on above: Leaking of conjunctival drainage bleb [H 59.89, T81.31XA] Start: 04-11-2025 BP Controlled (<130/80) BP Controlled (<130/80) [facility] Start: 04-06-2025 End: 04-06-2025 Patient encounter procedure 04/06/2025 2:15 PM EDT Office Visit [facility] [address] [address] Janet Martinez MD [address] [place] [address] Diagnostics, [facility] [address] [address] Michelle 04/06 for follow up Ophthalmology Comment on above: Michelle 04/06 for follow up Start: 04-02-2025 End: 04-02-2025 Patient encounter procedure Ophthalmology Comment on above: 1 WEEK POST OP Start: 03-31-2025 Annual PCP Team Chronic Disease Visit Annual PCP Team Chronic Disease Visit [facility] Start: 03-31-2025 BP Controlled (<130/80) BP Controlled (<130/80) [facility] Start: 03-30-2025 End: 03-30-2025 Patient encounter procedure 03/30/2025 2:00 PM EDT Office Visit [facility] [place] [address] [place] [address] Ifeoma Davis MD [address] [place] [address] 3 month follow up [facility] [place] Comment on above: 3 month follow up Start: 03-26-2025 End: 03-26-2025 Patient encounter procedure 03/26/2025 8:15 AM EDT Office Visit [facility] [address] [address] Adriana Talbert MD [address] [address] 1 DAY POST OP bleb leak repair OS Ophthalmology Comment on above: 1 DAY POST OP bleb leak repair OS Start: 03-25-2025 End: 03-25-2025 Admission to same day surgery center 03/25/2025 12:01 PM EDT - 03/25/2025 12:59 PM EDT Surgery Ophthalmology [address] [address] Adriana Talbert MD [address] [address] 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 Ophthalmology Comment on above: REV OR 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 WOUND EYE ANTERI OR SEGMENT MAJOR Start: 03-25-2025 End: 03-25-2025 Anesthesia consultation 03/25/2025 12:01 PM EDT Anesthesia Event Ophthalmology [address] [address] Marquita Aj SRNA Ophthalmology Start: 03-25-2025 Subsequent hospital visit by physician 03/25/2025 12:01 PM EDT Hospital Encounter Ophthalmology [address] [address] Adriana Talbert MD [address] [place], [place] [id number] 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, T81.31XA] Ophthalmology Comment on above: Leaking of conjunctival drainage bleb [H 59.89, T81.31XA] Start: 03-25-2025 End: 03-25-2025 Revj/rpr oprative wound anterior segment [facility] Start: 03-24-2025 End: 03-24-2025 Patient encounter procedure Neurology Comment on above: 31-90 day follow up Start: 03-16-2025 End: 06-15-2025 Lipid 1996 panel - Serum or Plasma LIPID PANEL, FASTING Lab Routine Mixed hyperlipidemia Expected: 03/16/2025, Expires: 06/15/2025 [facility] Work Phone: Comment on above: Expected: 03/16/2025, Expires: Start: 03-10-2025 X-ray of lumbar spine, two or three views Lumbar Spine 2 or 3 Views [facility] Start: 03-10-2025 XR Lumbar spine 2 or 3 Views [facility] Start: 03-02-2025 End: 03-02-2025 Nursing evaluation of patient and report 03/02/2025 12:45 PM EDT Nurse Visit [facility] [place] [address] [place] [address] Nurse, [place] [address] [place] [address] Tdap [facility] [place] Comment on above: Tdap Start: 03-01-2025 Influenza [facility] Comment on above: Postponed from 05/03/2024 (Declined at t his time) Start: 12-29-2024 End: 12-29-2024 Patient encounter procedure 12/29/2024 3:00 PM EDT Office Visit [facility] [place] [address] [place] [address], [place] [address] Ifeoma Davis MD [address] [place], [place] [address] 6 week follow up [facility] [place] Comment on above: 6 week follow up Start: 11-27-2024 End: 02-26-2025 Basic metabolic 2000 panel - Serum or Plasma BASIC METABOLIC PANEL Lab Routine Hypokalemia Expected: 11/27/2024 (Approximate), Expires: 02/26/2025 [facility] Work Phone: Comment on above: Expected: 11/27/2024 (Approximate), Expi res: 02/26/2025 Start: 11-19-2024 End: 02-18-2025 Basic metabolic 2000 panel - Serum or Plasma [facility] Work Phone: Comment on above: Expected: 11/19/2024, Expires: Start: 11-19-2024 End: 11-19-2024 Patient encounter procedure 11/19/2024 1:00 PM EDT Office Visit [facility] [place] [address] [place] [address], [place] [address] David Anna APRN.TALENT MANAGER [address], [place] [address] 2 wk follow up [facility] [place] Comment on above: 2 wk follow up Start: 11-17-2024 End: 11-17-2024 Patient encounter procedure 11/17/2024 9:00 PM EDT Office Visit [facility] [address] [place] [phone] Snoring [R06.83]; Excessive daytime sleepiness [G47.19]; Non-restorative sleep [G47.8]; PLMD (periodic limb movement disorder) [G47.61]; Primary hypertension [I10] [facility] Comment on above: Snoring [R06.83]; Excessive daytime slee piness [G47.19]; Non-restorative sleep [G47.8]; PLMD (periodic limb movement disorder) [G47.61]; Primary hypertension [I10] Start: 11-17-2024 BP Controlled (<130/80) BP Controlled (<130/80) [facility] Start: 11-03-2024 End: 02-02-2025 25-hydroxyvitamin D3 [Mass/volume] in Serum or Plasma [facility] Comment on above: Expected: 11/03/2024, Expires: Start: 11-03-2024 End: 02-02-2025 Cobalamin (Vitamin B12) [Mass/volume] in Serum or Plasma [facility] Comment on above: Expected: 11/03/2024, Expires: Start: 11-03-2024 End: 02-02-2025 Ferritin [Mass/volume] in Serum or Plasma [facility] Comment on above: Expected: 11/03/2024, Expires: Start: 11-03-2024 End: 02-02-2025 Iron and Iron binding capacity panel - Serum or Plasma [facility] Work Phone: Comment on above: Expected: 11/03/2024, Expires: Start: 11-03-2024 End: 11-03-2024 Patient encounter procedure 11/03/2024 2:00 PM EST Office Visit [facility] [place] [address], [place] [id number] Ifeoma Davis MD [address] [place], [place] [address] 1 month follow up [facility] [place] Comment on above: 1 month follow up Start: 11-03-2024 End: 02-02-2025 Thyrotropin [Units/volume] in Serum or Plasma [facility] Comment on above: Expected: 11/03/2024, Expires: Start: 11-03-2024 End: 02-02-2025 Thyroxine (T4) free [Mass/volume] in Serum or Plasma [facility] Comment on above: Expected: 11/03/2024, Expires: Start: 10-13-2024 End: 10-13-2024 Patient encounter procedure 10/13/2024 10:15 AM EST Office Visit [facility] [address] [place] [address] Cynthia Ramos MD [address] [place], [place] [id number] SP 6 months VaTa and mac OCT [facility] Comment on above: SP 6 months VaTa and mac OCT Start: 10-12-2024 End: 10-12-2024 Patient encounter procedure 10/12/2024 3:00 PM EST Office Visit Internal Medicine [facility] [address] [place] [address] Ifeoma Davis MD [address] [place], [place] [id number] follow up increase memory loss. decline in adls/ gait [facility] [place] Comment on above: follow up increase memory loss. decline in adls/ gait Start: 10-10-2024 Screening for malignant neoplasm of breast Mammogram Screening [facility] Start: 10-07-2024 End: 10-07-2024 Patient encounter procedure 10/07/2024 2:00 PM EST Office Visit Neurology [address] [place] [address] Michelle Becerril APRN.TALENT MANAGER [address] [place] [address] DAYSI (obstructive sleep apnea) [G47.33] Neurology Comment on above: DAYSI (obstructive sleep apnea) [G47.33] Start: 09-29-2024 End: 09-29-2024 Patient encounter procedure [facility] [place] Comment on above: 6 mo follow up; routine 6 mo follow up; rout ine - HTN focus [place] Start: 09-27-2024 Annual PCP Team Chronic Disease Visit Annual PCP Team Chronic Disease Visit [facility] Start: 09-24-2024 End: 09-24-2024 Patient encounter procedure 09/24/2024 3:00 PM EST Office Visit Neurology [address] [place] [address] Michelle Becerril APRN.TALENT MANAGER [address] [place] [address] F/U Neurology Comment on above: F/U Start: 09-02-2024 Medicare Advantage Annual Wellness Visit Medicare Advantage Annual Wellness Visit [facility] Start: 08-18-2024 End: 08-18-2024 Patient encounter procedure 08/18/2024 12:45 PM EST Office Visit OPHT [facility] [address] [place] [address] Cynthia Ramos MD [address] [place] [address] SP 6 months VaTa and mac OCT [facility] Comment on above: SP 6 months VaTa and mac OCT Start: 08-15-2024 DIABETES SCREEN DIABETES SCREEN [facility] Start: 08-13-2024 End: 08-13-2024 Patient encounter procedure 08/13/2024 1:00 PM EST Office Visit Neurology [address] [place] [address] Michelle Becerril APRN.TALENT MANAGER [address] [place] [address] DAYSI (obstructive sleep apnea) [G47.33] Neurology Comment on above: DAYSI (obstructive sleep apnea) [G47.33] Start: 07-23-2024 End: 07-23-2024 Patient encounter procedure 07/23/2024 11:20 AM EST Office Visit Orthopaedics [address] [place], [place] [id number] Massimo Hicks MD [address] [place] [address] rt wrist discuss surgery Orthopaedics Comment on above: rt wrist discuss surgery Start: 06-29-2024 HPV TESTING HPV TESTING [facility] Start: 06-29-2024 PAP TESTING PAP TESTING [facility] Start: 06-29-2024 Screening for malignant neoplasm of cervix [facility] Start: 06-22-2024 Colonoscopy COLONOSCOPY [facility] Start: 06-22-2024 COLORECTAL CANCER SCREENING COLORECTAL CANCER SCREENING [facility] Start: 06-18-2024 End: 06-18-2024 Patient encounter procedure 06/18/2024 12:50 PM EDT Appointment [facility] [address] [facility] [place] [place] [id number] Encounter for screening mammogram for malignant neoplasm of breast [Z12.31] Mammogram Comment on above: Encounter for screening mammogram for ma lignant neoplasm of breast [Z12.31] Start: 06-04-2024 End: 06-04-2024 Patient encounter procedure 06/04/2024 12:30 PM EDT Office Visit Vasculary Surgery [address] [place] [address] 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] Vasculary Surgery Comment on above: 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] Start: 05-21-2024 Annual PCP Team Chronic Disease Visit Annual PCP Team Chronic Disease Visit [facility] Start: 05-21-2024 BP Controlled (<130/80) BP Controlled (<130/80) [facility] in Start: 05-03-2024 Covid-19 Vaccine ( season) Covid-19 Vaccine ( season) [facility] Start: 05-03-2024 Covid-19 Vaccine ( season) Covid-19 Vaccine ( season) [facility] Start: 05-03-2024 Influenza vaccination [facility] Start: 04-30-2024 BP CONTROLLED (<130/80) BP CONTROLLED (<130/80) [facility] in Start: 03-31-2024 End: 06-30-2024 Hepatitis C virus Ab [Presence] in Serum [facility] Work Phone: Comment on above: Expected: 03/31/2024, Expires: Start: 03-31-2024 End: 06-30-2024 HIV 1+2 Ab [Presence] in Serum or Plasma by Immunoassay [facility] Comment on above: Expected: 03/31/2024, Expires: Start: 03-31-2024 End: 03-31-2024 Patient encounter procedure [facility] [place] Comment on above: physical physical - AWV due Start: 03-17-2024 End: 06-16-2024 Basic metabolic 2000 panel - Serum or Plasma BASIC METABOLIC PANEL Lab Routine Hypertension Expected: 03/17/2024, Expires: 06/16/2024 [facility] Work Phone: Comment on above: Expected: 03/17/2024, Expires: Start: 03-17-2024 End: 06-16-2024 CBC panel - Blood by Automated count COMPLETE BLOOD COUNT Lab Routine Medication management Expected: 03/17/2024, Expires: 06/16/2024 [facility] Comment on above: Expected: 03/17/2024, Expires: Start: 03-17-2024 End: 06-16-2024 Lipid 1996 panel - Serum or Plasma LIPID PANEL BASIC Lab Routine Mixed hyperlipidemia Expected: 03/17/2024, Expires: 06/16/2024 [facility] Comment on above: Expected: 03/17/2024, Expires: Start: 02-18-2024 End: 02-18-2024 Patient encounter procedure 02/18/2024 12:30 PM EDT Office Visit OPHT [facility] [address] [place] [address] Cynthia Ramos MD [address] [place] [address] 6m follow up [facility] Comment on above: 6m follow up Start: 12-11-2023 BP CONTROLLED (<130/80) BP CONTROLLED (<130/80) [facility] Start: 10-16-2023 ANNUAL PCP TEAM CHRONIC DISEASE VISIT ANNUAL PCP TEAM CHRONIC DISEASE VISIT [facility] Start: 10-16-2023 BP CONTROLLED (<130/80) BP CONTROLLED (<130/80) [facility] Start: 09-27-2023 Mammography [facility] Start: 09-27-2023 Screening for malignant neoplasm of breast Mammogram Screening [facility] Start: 09-02-2023 Behavioral Health Screening Behavioral Health Screening [facility] Start: 09-02-2023 Depression Assessment Depression Assessment [facility] Start: 06-25-2023 BP CONTROLLED (<130/80) BP CONTROLLED (<130/80) [facility] Start: 06-20-2023 BP CONTROLLED (<130/80) BP CONTROLLED (<130/80) [facility] Start: 06-04-2023 ANNUAL PCP TEAM CHRONIC DISEASE VISIT ANNUAL PCP TEAM CHRONIC DISEASE VISIT [facility] Start: 05-03-2023 Covid-19 Vaccine () Covid-19 Vaccine () [facility] Start: 05-03-2023 Influenza vaccination [facility] Start: 02-09-2023 BP CONTROLLED (<130/80) BP CONTROLLED (<130/80) [facility] Start: 12-25-2022 ANNUAL PCP TEAM CHRONIC DISEASE VISIT ANNUAL PCP TEAM CHRONIC DISEASE VISIT [facility] Start: 12-04-2022 BP CONTROLLED (<130/80) BP CONTROLLED (<130/80) [facility] Start: 10-23-2022 ANNUAL PCP TEAM CHRONIC DISEASE VISIT ANNUAL PCP TEAM CHRONIC DISEASE VISIT [facility] Start: 10-16-2022 End: 12-16-2022 Follitropin [Units/volume] in Serum or Plasma FSH BLD Lab Routine Hot flashes Expected: 10/16/2022, Expires: 12/16/2022 [facility] Work Phone: Comment on above: Expected: 10/16/2022, Expires: Start: 09-27-2022 End: 11-27-2022 CBC W Auto Differential panel - Blood CBC + DIFF Lab Routine Annual physical exam Expected: 09/27/2022, Expires: 11/27/2022 [facility] Work Phone: Comment on above: Expected: 09/27/2022, Expires: 3 Start: 09-27-2022 End: 11-27-2022 Comprehensive metabolic 2000 panel - Serum or Plasma COMP METABOLIC PANEL Lab Routine Annual physical exam Expected: 09/27/2022, Expires: 11/27/2022 [facility] Work Phone: Comment on above: Expected: 09/27/2022, Expires: 3 Start: 09-27-2022 End: 11-27-2022 Lipid 1996 panel - Serum or Plasma LIPID PANEL BASIC Lab Routine Annual physical exam Expected: 09/27/2022, Expires: 11/27/2022 [facility] Work Phone: Comment on above: Expected: 09/27/2022, Expires: 3 Start: 09-27-2022 End: 11-27-2022 Thyrotropin [Units/volume] in Serum or Plasma TSH BLD Lab Routine Annual physical exam Expected: 09/27/2022, Expires: 11/27/2022 [facility] Work Phone: Comment on above: Expected: 09/27/2022, Expires: 3 Start: 09-02-2022 DEPRESSION ASSESSMENT DEPRESSION ASSESSMENT [facility] Start: 08-21-2022 Mammography MAMMOGRAM [facility] Start: 06-27-2022 End: 06-20-2023 Echocardiography ECHO Cardiology Routine PXE (pseudoxanthoma elasticum) Expected: 06/27/2022, Expires: 06/20/2023 [facility] Work Phone: Comment on above: Expected: 06/27/2022, Expires: 3 Start: 05-03-2022 Influenza vaccination [facility] Start: 03-20-2022 End: 05-20-2022 CBC panel - Blood by Automated count CBC Lab Routine Medication management Expected: 03/20/2022, Expires: 05/20/2022 [facility] Work Phone: Comment on above: Expected: 03/20/2022, Expires: 2 Start: 03-20-2022 End: 05-20-2022 Hemoglobin A1c in Blood HGB A1C Lab Routine Medication management Expected: 03/20/2022, Expires: 05/20/2022 [facility] Work Phone: Comment on above: Expected: 03/20/2022, Expires: 2 Start: 03-20-2022 End: 05-20-2022 SCHEDULE LAB TESTING SCHEDULE LAB TESTING Lab Routine Expected: 03/20/2022, Expires: 05/20/2022 [facility] Work Phone: Comment on above: Expected: 03/20/2022, Expires: 2 Start: 02-27-2022 End: 04-29-2022 Herpes simplex virus+Varicella zoster virus DNA [Presence] in Unspecified specimen by SUKUMAR with probe detection HSV 1,2/VZV AMP MOLECULAR DETECT Lab Routine Marginal corneal ulcer of left eye Expected: 02/27/2022, Expires: 04/29/2022 [facility] Work Phone: Comment on above: Expected: 02/27/2022, Expires: 2 Start: 02-27-2022 End: 04-29-2022 Nuclear Ab [Presence] in Serum by Immunoassay OL[facility] PANEL BLOOD SCRN Lab Routine Marginal corneal ulcer of left eye Expected: 02/27/2022, Expires: 04/29/2022 [facility] Work Phone: Comment on above: Expected: 02/27/2022, Expires: 2 Start: 09-02-2021 DEPRESSION ASSESSMENT DEPRESSION ASSESSMENT [facility] Start: 07-28-2019 Adult depression screening assessment DEPRESSION SCREENING [facility] Start: 2019 Pneumococcal Vaccine: 50+ (1 of 1 - PCV) Pneumococcal Vaccine: 50+ (1 of 1 - PCV) [facility] Start: 2019 SHINGRIX VACCINE (1 of 2) SHINGRIX VACCINE (1 of 2) [facility] Start: 2014 COLOGUARD (FIT-DNA) COLOGUARD (FIT-DNA) [facility] Start: [address] COLONOGRAPHY [facility] Start: 2014 FECAL OCCULT BLOOD FECAL OCCULT BLOOD [facility] Start: 2014 Screening for malignant neoplasm of colon [facility] Start: 2014 SIGMOIDOSCOPY SIGMOIDOSCOPY [facility] Start: 1988 Hepatitis B Vaccine (1 of 3 - 19+ 3-dose series) Hepatitis B Vaccine (1 of 3 - 19+ 3-dose series) [facility] Start: 1988 SHINGRIX VACCINE (1 of 2) SHINGRIX VACCINE (1 of 2) [facility] Start: 1988 Urine microalbumin profile [facility] Start: 1987 Anxiety Screening Anxiety Screening [facility] Start: 1987 BP CONTROLLED (<130/80) BP CONTROLLED (<130/80) [facility] in Start: 1987 Depression Screening Depression Screening [facility] Start: 1987 HEPATITIS C SCREENING HEPATITIS C SCREENING [facility] Start: 1987 Hepatitis C screening Hepatitis C Screening [facility] Start: 1987 HIV SCREENING HIV SCREENING [facility] Start: 1987 HIV screening HIV Screening [facility] Start: 1981 COVID-19 VACCINE (1) COVID-19 VACCINE (1) [facility] Start: 1975 PNEUMOCOCCAL (1 - PCV) PNEUMOCOCCAL (1 - PCV) [facility] Start: 1974 COVID-19 VACCINE (#1) COVID-19 VACCINE (#1) [facility] Start: 1969 COVID-19 VACCINE (#1) COVID-19 VACCINE (#1) [facility] Start: 1969 HEPATITIS B (1 of 3 - 3-dose series) HEPATITIS B (1 of 3 - 3-dose series) [facility] Start: 1969 Hepatitis B Vaccine (1 of 3 - 3-dose series) Hepatitis B Vaccine (1 of 3 - 3-dose series) [facility] Bacteria identified in Urine by Culture BACTERIAL CULTURE, URINE Microbiology Routine Dysuria Ordered: 10/31/2024 [facility] Work Phone: Comment on above: Ordered: 10/31/2024 End: 04-30-2024 COLONOSCOPY DIAGNOSTIC COLONOSCOPY DIAGNOSTIC Endoscopy Routine Change in bowel habits 1 Occurrences starting 04/30/2023 until 04/30/2024 [facility] Work Phone: Comment on above: 1 Occurrences starting 04/30/2023 until 04/30/2024 CORNEAL TOPOGRAPHY A TLAS OU (BOTH EYES) CORNEAL TOPOGRAPHY ATLAS OU (BOTH EYES) [facility] Imaging Routine Nuclear sclerotic cataract of left eye 10/29/2022 1:13 PM EST [facility] Work Phone: CORNEAL TOPOGRAPHY PENTACAM OU (BOTH EYES) CORNEAL TOPOGRAPHY PENTACAM OU (BOTH EYES) [facility] Imaging Routine Nuclear sclerotic cataract of left eye 10/29/2022 1:12 PM EST [facility] Work Phone: COVID & INFLUENZA A/ B & RSV PCR, ROUTINE COVID & INFLUENZA A/B & RSV PCR, ROUTINE Microbiology Routine Close exposure to COVID-19 virus Ordered: 07/08/2024 [facility] Work Phone: Comment on above: Ordered: 07/08/2024 End: 07-12-2025 DBT Breast - bilateral screening GENOVEVA SCREENING W LILLY Radiology Routine Encounter for screening mammogram for malignant neoplasm of breast 1 Occurrences starting 06/12/2024 until 07/12/2025 [facility] Work Phone: Comment on above: 1 Occurrences starting 06/12/2024 until 07/12/2025 End: 10-28-2023 Diagnostic mammography computer-aided detcj uni GENOV[facility]A DIAGNOSTIC RT Radiology Routine Abnormal mammogram 1 Occurrences starting 09/28/2022 until 10/28/2023 [facility] Work Phone: Comment on above: 1 Occurrences starting 09/28/2022 until 10/28/2023 ECG B/O W INTERP (ME D OFFICE) ECG B/O W INTERP (MED OFFICE) ECG Routine PXE (pseudoxanthoma elasticum) Ordered: 06/20/2022 [facility] Work Phone: Comment on above: Ordered: 06/20/2022 End: 10-16-2023 ECG COMPLETE ECG COMPLETE ECG Routine Gastroesophageal reflux disease with esophagitis, unspecified whether hemorrhage 1 Occurrences starting 10/16/2022 until 10/16/2023 [facility] Work Phone: Comment on above: 1 Occurrences starting 10/16/2022 until 10/16/2023 ECG COMPLETE ECG COMPLETE ECG 10/16/2022 2:04 PM EST [facility] End: 04-30-2024 EGD DIAGNOSTIC EGD DIAGNOSTIC Endoscopy Routine Gastroesophageal reflux disease, unspecified whether esophagitis present 1 Occurrences starting 04/30/2023 until 04/30/2024 [facility] Work Phone: Comment on above: 1 Occurrences starting 04/30/2023 until 04/30/2024 EMG(NEURO/NI) EMG(NEURO/NI) EM G Routine Pain in both hands Ordered: 05/03/2022 [facility] Work Phone: Comment on above: Ordered: 05/03/2022 End: 04-25-2024 EMG(NEURO/NI) EMG(NEURO/NI) EMG Routine Numbness and tingling in right hand 1 Occurrences starting 04/25/2023 until 04/25/2024 [facility] Work Phone: Comment on above: 1 Occurrences starting 04/25/2023 until 04/25/2024 MG Breast Screening GENOVEVA SCREENIN G Radiology Routine Encounter for screening mammogram for breast cancer 10/10/2023 1:07 PM EST [facility] Work Phone: End: 01-22-2025 MG Breast Screening GENOVEVA SCREENING Radiology Routine Encounter for gynecological examination (general) (routine) without abnormal findings Encounter for screening mammogram for breast cancer 1 Occurrences starting 12/24/2023 until 01/22/2025 [facility] Work Phone: Comment on above: 1 Occurrences starting 12/24/2023 until 01/22/2025 MG Breast Screening GENOVEVA SCREENIN G Radiology Routine Encounter for gynecological examination (general) (routine) without abnormal findings Encounter for screening mammogram for breast cancer 10/21/2024 2:30 PM EST [facility] Work Phone: MR Lumbar spine [facility] End: 01-24-2023 Mri brain brain stem w/o w/contrast material MRI BRAIN WO/W IVCON Radiology Routine 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) Vertigo Memory deficits New daily persistent headache 1 Occurrences starting 12/25/2021 until 01/24/2023 [facility] Work Phone: Comment on above: 1 Occurrences starting 12/25/2021 until 01/24/2023 Oph bmtry prtl coher intrfrmtry io lens pwr favio 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 W/ IOL CALC OPHT Imaging Routine Combined 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 cataract of both eyes Ordered: 04/03/2022 [facility] Work Phone: Comment on above: Ordered: 04/03/2022 OT PLAN OF CARE CERTIFICATION OT PLAN OF CARE CERTIFICATION Procedures Routine Difficulty with household tasks Impaired mobility and personal care Personal care impairment Complaints of difficulty with reading Blindness right eye category 3, blindness left eye category 4 Ordered: 09/19/2022 [facility] Comment on above: Ordered: 09/19/2022 PAP TEST PAP TEST Lab Rou ronnell Encounter for gynecological examination (general) (routine) without abnormal findings Encounter for screening for human papillomavirus (HPV) Pap smear for cervical cancer screening 12/24/2023 1:43 PM EDT [facility] Patient Education ED Concussion [facility] Work Phone: End: 07-09-2025 Polysomnogram POLYSOMNOGRAM (PSG) Procedures Routine DAYSI (obstructive sleep apnea) 1 Occurrences starting 07/09/2024 until 07/09/2025 [facility] Work Phone: Comment on above: 1 Occurrences starting 07/09/2024 until 07/09/2025 End: 10-08-2025 Polysomnogram POLYSOMNOGRAM (PSG) Procedures Routine Snoring Excessive daytime sleepiness Non-restorative sleep PLMD (periodic limb movement disorder) Primary hypertension 1 Occurrences starting 10/08/2024 until 10/08/2025 [facility] Work Phone: Comment on above: 1 Occurrences starting 10/08/2024 until 10/08/2025 End: 07-28-2023 Radiologic exam chest 2 views XR CHEST 2V FRONTAL/LAT Radiology Routine Acute cough 1 Occurrences starting 06/28/2022 until 07/28/2023 [facility] Work Phone: Comment on above: 1 Occurrences starting 06/28/2022 until 07/28/2023 Revj/rpr oprative wo und anterior segment 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 Leaking of conjunctival drainage bleb [facility] End: 01-03-2023 Screening mammography bi 2-view breast inc cad GENOVEVA SCREENING Radiology Routine Encounter for screening mammogram for breast cancer 1 Occurrences starting 12/04/2021 until 01/03/2023 [facility] Work Phone: Comment on above: 1 Occurrences starting 12/04/2021 until 01/03/2023 Tdap vaccine 7 yrs/> im TDAP VAC CINE, AGE 7+ YR (ADACEL, BOOSTRIX) Immunization/Injection Routine Need for vaccination Ordered: 03/01/2025 [facility] Work Phone: Comment on above: Ordered: 03/01/2025 End: 10-28-2023 Us breast uni real time with image limited US BREAST LTD RT Radiology Routine Abnormal mammogram 1 Occurrences starting 09/28/2022 until 10/28/2023 [facility] Work Phone: Comment on above: 1 Occurrences starting 09/28/2022 until 10/28/2023 End: 10-31-2023 XR HAND GENERAL 3V PA/LAT/OBL BILATERAL XR HAND GENERAL 3V PA/LAT/OBL BILATERAL Radiology Routine Pain in both hands 1 Occurrences starting 10/01/2022 until 10/31/2023 [facility] Work Phone: Comment on above: 1 Occurrences starting 10/01/2022 until 10/31/2023 XR HAND GENERAL 3V PA/LAT/OBL BILATERAL XR HAND GENERAL 3V PA/LAT/OBL BILATERAL Radiology Routine Pain in both hands 10/01/2022 2:14 PM EST [facility] Work Phone: XR Spine Lumbar and Sacrum Views [facility] Immunizations Immunization Date Immunization Notes Care Provider Adwoa matthews 03-02-2025 tetanus toxoid, redu leona diphtheria toxoid, and acellular pertussis vaccine, adsorbed Mi Nurse Work Phone: [facility] 02-25-2025 diphtheria, tetanus toxoids and acellular pertussis vaccine, unspecified formulation Ifeoma Davis MD Work Phone: [facility] Payers Date Payer Category Payer Self-pay [id number] 2021 Medicaid [id number] 2021 Medicaid [id number] 2020 Medicaid [id number] 2019 Medicare (Managed Care) [employer] O [id number] 2017 Unknown ANTHEM BLUE CROS S AND BLUE SHIELD ANTHEM MEDIBLUE O [id number] 2017-Present [phone] [address] [place] [address] O [id number] 2017 Unknown [id number] 2017 Unknown [id number] 2014 Unknown [id number] Unknown [id number]. 462 Unknown [id number] 2.16.840.1.067148.3.579.2. 462 Unknown [id number] 2.16.840.1.705099.3.579.2. 462 Unknown [id number] 2.16.840.1.838600.3.579.2. 462 Unknown [id number] 2.16.840.1.408541.3.579.2. 462 Unknown [id number] 2.16.840.1.434651.3.579.2. 462 Unknown [id number] 2.16.840.1.497897.3.579.2. 462 Unknown [id number] 2.16.840.1.471444.3.579.2. 462 Unknown [id number] 2.16.840.1.361988.3.579.2. 462 Unknown [id number] 2.16.840.1.258010.3.579.2. 462 Unknown [id number] 2.16.840.1.524474.3.579.2. 462 Unknown [id number] 2.16.840.1.770784.3.579.2. 462 Unknown [id number] 2.16.840.1.756812.3.579.2. 462 Unknown [id number] 2.16.840.1.632050.3.579.2. 462 Unknown [id number] 2.16.840.1.119768.3.579.2. 462 Unknown [id number]. 462 Social History Date Type Detail Facility Start: 12-09-2014 End: 05-27-2025 Tobacco smoking status NHIS Never smoked tobacco [facility] Work Phone: Start: 11-28-2021 End: 04-22-2025 Alcohol intake Current non-drinker of alcohol (finding) [facility] Start: 11-21-2020 History SDOH Social Connections Phone 5 [facility] Start: 11-21-2020 History SDOH Social Connections Confucianist 3 [facility] Start: 11-21-2020 History SDOH Social Connections Membership 1 [facility] Start: 11-21-2020 History SDOH Physica l Activity DPW 7 [facility] Start: 11-21-2020 History SDOH Physica l Activity MPS 2 [facility] Start: 1970 Sex Assigned At Not on file C [facility] Start: 12-15-2021 End: 06-25-2022 Exposure to SARS-CoV-2 (event) Not sure [facility] Work Phone: Start: 12-09-2014 End: 03-24-2025 Tobacco use and exposure Smokeless tobacco non-user [facility] Start: 1970 Sex Assigned At Female C [facility] Start: 11-20-2021 End: 11-06-2023 Tobacco smoking status NHIS Unknown if ever smoked [facility] Start: 11-21-2020 End: 12-24-2023 History of Social function [facility] Work Phone: Start: 11-21-2020 End: 12-24-2023 Social connection and isolation panel [facility] Work Phone: Do you belong to any clubs or organizations such as jehovah's witness groups, unions, fraternal or athletic groups, or school groups? Yes [facility] Work Phone: Are you now , , , , never or living with a partner? [facility] Work Phone: Start: 08-03-2012 Adult Depression Screening Assessment 0 [facility] Work Phone: Do you feel stress - tense, restless, nervous, or anxious, or unable to sleep at night because your mind is troubled all the time - these days [OSQ] Only a little [facility] Work Phone: Start: 09-18-2022 Gender identity Identifies as female gender (finding) [facility] Start: 09-18-2022 Sexual orientation Heterosexual (fin ding) [facility] Start: 11-30-2024 Sex Female (finding) [facility] NEGATED: Highlighted rowStart: NINF History of tobacco use Passive smoker [facility] Medical Equipment Procedure Code Equipment Code Equipment Origin al Text Equipment Identifier Dates Lens Acrysof Ultrasert +14.5 Diopter Acrylic Iol 1 Piece Foldable Uv Blue - [id number] Start: 06-25-2022 Lens Acrysof Ultrasert +15.5 Diopter Acrylic Iol 1 Piece Foldable Uv Blue - [id number] Start: 11-15-2022 Functional Status Date Assessment Result Facility 12-14-2014 Are you deaf, or do you have serious difficulty hearing No 12/14/2014 10:27 AM Celeste Bass LPN No [facility] 12-14-2014 Are you blind, or do you have serious difficulty seeing, even when wearing glasses Yes 12/14/2014 10:27 AM Celeste Bass LPN Yes [facility] 12-14-2014 Do you have serious difficulty walking or climbing stairs No 12/14/2014 10:27 AM Celeste Bass LPN No [facility] 12-14-2014 Do you have difficul ty dressing or bathing No 12/14/2014 10:27 AM Celeste Bass LPN No [facility] 12-14-2014 Because of a physica l, mental, or emotional condition, do you have difficulty doing errands alone such as visiting a physician's office or shopping No 12/14/2014 10:27 AM EDT Celeste Gomez LPN No [facility] Mental Status Date Assessment Result Facility 12-14-2014 Because of a physica l, mental, or emotional condition, do you have serious difficulty concentrating, remembering, or making decisions No 12/14/2014 10:27 AM EDT Celeste Gomez LPN No [facility] Clinical Notes 11-28-2021 to 05-28-2025 Note Date & Type Note Facility 05-28-2025 Note HNO ID: [id number] Author: MARY SHULTZ LPCC Service: ? Author Type: Counselor Type: Progress Notes Filed: 05/28/2025 10:24 Note Text: Behavioral Health Social Work Progress Note Patient identified for [facility] from: PCP Reason for referral: Resources Behavioral Health Resources: Psychology - talk therapy [facility] encounter type: Chart Review Attempts to Outreach: 1 attempt Referral made: Psychology - Internal Psychology-Internal referral type: Therapy Final Disposition: Resources given Patient Discharged?: Yes [facility] consult received for talk therapy resources. PCP provided appropriate resources to patient in after visit summary. Orders have been sent for sleep medicine and general psychology. SW will be available should further needs arise; please place an additional consult. ASHLI Duran-S May 28, 2025 [facility] 05-27-2025 Discharge summary [facility] 05-27-2025 Discharge summary Note Date/Time May 27, 2025 7:14pm [facility] Medical Records Department [address] [place] [address] Emergency Department Summary 05/27/25 MR#: [id number] Acct: [id number] Name: ALLIE RUTLEDGE ANN Rep #:[id number] : 1970 55 From: Juan Manuel Turpin MD PCP: Dr. Ifeoma Davis MD Status:REG E R Location: ED HPI History of Present Illness Chief Complaint: Head Injury Detail of Chief Complaint: Closed head injury Informant: patient Onset/Context/Timing Onset: Hours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 multiple specialists [facility]. She also has a history of HTN, [...] Dr. Cynthia Ramos M.D. [place] [address] SOCIAL HISTORY[3] Physical Exam: BP 110/62 Pulse [...] agrees with the treatment plan. Recording using [employer] software for draft documentation of the visit was discussed with the patient/authorized field representative; all questions welcomed and answered. Patient/authorized field representative agreed to proceed. TRINH Perez PA-C MDM [1] Current Outpatient Medications Medication Sig prednisoLONE acetate (PRED FORTE) 1 % ophthalmic suspension Use 1 drop in the left eye four times daily. traZODone (DESYREL (more content not included)...[facility] 04-11-2025 History of Present illness Narrative* Aislinn Mcmullen PA-C - 04/11/2025 1:39 PM EDT Images from the original note were not included. [facility] NOTE Ifeoma Davis MD [address] [facility] [address] Allie Rutledge is a 54-year-old female with a history [...] secondary to PXE, which has necessitated multiple eyesurgeries. She is preparing for her 10th surgery and anticipates several more in the future. She reports that prior to her last surgery, she was at risk of losing her eye due to low intraocular pressure. She is under the care of multiple specialists at the [facility]. She also has a history of HTN, [...] adenoma CT MAXILLOFAC/SINUS 06/29/2015 [facility]/30/2023 Small hiatal [...] Dr. Cynthia Ramos M.D. [place] [address] SOCIAL HISTORY[3] Physical Exam: BP 110/62 Pulse [...] upper respiratory infection, including cough and sinus congestion.No fevers reported. Patient has a history of [...] agrees with the treatment plan. Recording using [employer] software for draft documentation of the visit was discussed with the patient/authorized field representative; all questions welcomed and answered. Patient/authorized field representative agreed to proceed. TRINH Perez, PA-C MDM [1] Current Outpatient Medications Medication [...] bedtime as needed (for insomnia.) for up to90 days. SAW PALMETTO ORAL Take by mouth [...] as directed two times a week. TWICE WEEKLY(Patient taking differently: Apply 1 patch as directed [...] tablet by mouth once daily. azithromycin (ZITHROMAX Z-JEANIEN) 250 mg tablet 2 tablets by mouth first day then 1 tablet the next 4 days guaiFENesin (MUCINEX) 600 mg 12 hr tablet Take 1 tablet by mouth two times a day. benzonatate (TESSALON PERLE) 100 mg capsule Take 1 capsule by mouth three times a day as needed forcough for up to 7 days. No current [...] No Drug use: No documented in this encounterKet[facility]08-10-2025 Instructions* Patient Instructions* Aislinn Mcmullen PA-C - 04/11/2025 1:30 PM EDT We discussed your recent symptoms and concerns: - You have been diagnosed with a viral upper respiratory infection (URI). This is likely viral, notbacterial. - To help manage your symptoms: - [...] address the cough but can be used ifsymptoms worsen or persist, suggesting a bacterial infection. - Continue monitoring your symptoms. If your cough worsens, you develop a fever, or your symptoms do not improve, please contact our office. documented in this encounterK[facility]08-02-2025 Telephone encounter Note * Telephone Encounter - Reynaldo Alford MD - 04/03/2025 12:35 PM EDT Received a page that the patient called regarding inability to get eye drops prescribed yesterday due to a drug interaction. I called the patient back and was unable to reach them on multiple attempts. I left a message acknowledging the patient's prior call and concerns and asked them to call back [phone] at any time when available to discuss further. Reynaldo Alford MD Ophthalmology Resident [facility] Work Phone: 1(612) 256-518108-02-2025 Miscellaneous Notes* Telephone Encounter - Reynaldo Alford MD - 04/03/2025 12:35 PM EDT Received a page that the patient called regarding inability to get eye drops prescribed yesterday due to a drug interaction. I called the patient back and was unable to reach them on multiple attempts. I left a message acknowledging the patient's prior call and concerns and asked them to call back [phone] at any time when available to discuss further. Reynaldo Alford MD Ophthalmology Resident documented in this encounterKettering [facility]08-01-2025 History of Present illness Narrative* Adriana Talbert MD - 04/02/2025 10:00 AM EDT -PO 1w 1d bleb leak repair OS 03/25/25 (conj advancement flap) -now on tobradex qid OS, e-mycin qhs -healing well, no leak Change t-dex to PF and use that qid -can stop e-mycin -sees Paparizos 04/20 By signing my name below, I, Maria Luisa Villareal, attest that this documentation has been prepared under thedirection and in the presence of Dr. Adriana Talbert. Electronically signed, Marguerite Molina April 02, 2025 I personally performed the services described in this documentation. All medical record entries made by the scribe were at my direction and in my presence. I have reviewed the chart and discharge instructions (if applicable) and agree that the record reflects my personal performance and is accurateand complete. I have confirmed and edited as necessary the relevant HPI, ophthalmic history, ROS, and neuro exam findings as obtained by others. I have seen and examined Allie Rutledge. I have discussed the case and the management of this patient's care with the Resident/Fellow, if applicable. I also have reviewed,edited as necessary, and agree with the assessment and plan as stated above and agree with all of its relevant components. * Adriana Talbert MD - 03/29/2025 1:29 PM EDT documented in this encounterKettering [facility]08-01-2025 NoteHNO ID: [id number] Author: ADRIANA TALBERT MD Service: ? Author Type: Physician Type: Progress Notes Filed: 04/02/2025 10:40 Note Text: -PO 1w 1d bleb leak repair OS 03/25/25 (conj advancement flap) -now on tobradex qid OS, e-mycin qhs -healing well, no leak Change t-dex to PF and use that qid -can stop e-mycin -sees Paparizos 04/20 By signing my name below, IMaria Luisa, attest that this documentation has been prepared under the direction and in the presence of Dr. Adriana Talbert. Electronically signed, Marguerite Molina April 02, 2025 I personally performed the services described in this documentation. All medical record entries made by the scribe were at my direction and in my presence. I have reviewed the chart and discharge instructions (if applicable) and agree that the record reflects my personal performance and is accurate and complete. I have confirmed and edited as necessary the relevant HPI, ophthalmic history, ROS, and neuro exam findings as obtained by others. I have seen and examined Allie Rutledge. I have discussed the case and the management of this patient's care with the Resident/Fellow, if applicable. I also have reviewed, edited as necessary, and agree with the assessment and plan as stated above and agree with all of its relevant components.[facility]07-30-2025 Telephone encounter Note* Telephone Encounter - Gely Plascencia - 03/31/2025 2:22 PM EDT patient called, she lost her White Cap eye medication, requesting a new script [facility] Work Phone: 1(501) [phone] Miscellaneous Notes* Telephone Encounter - Gely Plascencia - 03/31/2025 2:22 PM EDT patient called, she lost her White Cap eye medication, requesting a new script documented in this encounterK[facility]07-30-2025 Telephone encounter Note * Telephone Encounter - Ifeoma Davis MD - 03/31/2025 12:59 PM EDT Ordered as requested Regards, Ifeoma Davis MD [facility]07-30-2025 Miscellaneous Notes* Telephone Encounter - Ifeoma Davis MD - 03/31/2025 12:59 PM EDT Ordered as requested Regards, Ifeoma Davis MD * Telephone Encounter - Mallory Morrison RN - 03/31/2025 10:32 AM EDT Patient calls to report that she needs [...] advise, Mallory Morrison RN documented in this encounterKet[facility]07-30-2025 Telephone encounter Note * Telephone Encounter - Gely Plascencia - 03/31/2025 12:12 PM EDT I contacted the patient and left a voicemail informing her that you will be seeing her instead of the other physician. Just a heads-up. [facility] Work Phone: 1(986) 245-680207-30-2025 Miscellaneous Notes* Telephone Encounter - Gely Plascencia - 03/31/2025 12:12 PM EDT I contacted the patient and left a voicemail informing her that you will be seeing her instead of the other physician. Just a heads-up. * Telephone Encounter - Adriana Talbert MD - 03/31/2025 12:03 PM EDT I moved her back to my Saturday clinic schedule - I will see her Saturday instead of Dr. Ayala * Telephone Encounter - Gely Plascencia - 03/31/2025 8:17 AM EDT The patient has requested that you visit on Saturday to examine her eye. * Telephone Encounter - Adriana Talbert MD - 03/30/2025 5:23 PM EDT YES. I can see her in [place] tomorrow (Sat) if she wants. Otherwise she has an appt Saturday with Dr. Ayala. I am on site and happy to come over if needed. * Telephone Encounter - Gely Plascencia - 03/30/2025 2:46 PM EDT The patient reports experiencing tearing from the left eye approximately four to five times daily. Is this considered normal? [phone] sx: 03/25/2025 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 [[id number]] - Eye - Left documented in this encounterKet[facility]07-30-2025 Telephone encounter Note * Telephone Encounter - Adriana Talbert MD - 03/31/2025 12:03 PM EDT I moved her back to my Saturday clinic schedule - I will see her Saturday instead of Dr. Ayala [facility]07-30-2025 Telephone encounter Note* Telephone Encounter - Mallory Morrison RN - 03/31/2025 10:32 AM EDT Patient calls to report that she needs [...] Please review and advise, Mallory Morrison RN [facility]07-30-2025 Telephone encounter Note* Telephone Encounter - Gely Plascencia - 03/31/2025 8:17 AM EDT The patient has requested that you visit on Saturday to examine her eye. [facility]07-29-2025 Telephone encounter Note* Telephone Encounter - Adriana Talbert MD - 03/30/2025 5:23 PM EDT YES. I can see her in [place] tomorrow (Sat) if she wants. Otherwise she has an appt Saturday with Dr. Ayala. I am on site and happy to come over if needed. [facility]07-29-[facility]25 Telephone encounter Note* Telephone Encounter - Gely Plascencia - 03/30/2025 2:46 PM EDT The patient reports experiencing tearing from the left eye approximately four to five times daily. Is this considered normal? [phone] sx: 03/25/2025 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 [[id number]] - Eye - Left [facility]07-28-2025 NoteHNO ID: [id number] Author: ADRIANA TALBERT MD Service: ? Author Type: Physician Type: Progress Notes Filed: 04/02/2025 10:40 Note Text:[facility]07-25-2025 Note* Addendum Note - Brittaney cMkeon MD - 03/26/2025 8:50 PM EDTAddended by: BRITTANEY MCKEON on: 03/26/2025 08:50 PM Modules accepted: Orders [facility]07-25-2025 Miscellaneous Notes* Addendum Note - Brittaney Mckeon MD - 03/26/2025 8:50 PM EDTAddended by: BRITTANEY MCKEON on: 03/26/2025 08:50 PM Modules accepted: Orders * Telephone Encounter - Brittaney Mckeon MD - 03/26/2025 7:17 PM EDT Received page that patient had called with concern over eye tearing. Spoke to them on the phone: Patient is POD1 of revision of trabeculectomy bleb of the left eye with Dr. Talbert. Attempted tocall 2x and went to . Left voicemail [...] The eye clinic can be reached at [phone] and you can ask to speak to the contracting officer supervisor blast furnace auxiliaries. Brittaney Mckeon MD Ophthalmology Resident, [facility] documented in this encounterKet[facility]07-25-2025 Telephone encounter Note * Telephone Encounter - Brittaney Mckeon MD - 03/26/2025 7:17 PM EDT Received page that patient had called with concern over eye tearing. Spoke to them on the phone: Patient is POD1 of revision of trabeculectomy bleb of the left eye with Dr. Talbert. Attempted tocall 2x and went to . Left voicemail [...] The eye clinic can be reached at [phone] and you can ask to speak to the contracting officer supervisor blast furnace auxiliaries. 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 [...] Expiration Date: 06/23/2025 REASON FOR VISIT: Allie Rutledge is a 54 year old female who [...] data. CHIEF COMPLAINT: Pre-op exam HPI: Allie Rutledge is a 54 year old seen for PAC due to scheduled above surgery because Leaking of conjunctival drainage bleb. 03/23/25, Dr. Figueroa Urgent visit for bleb leak OS Sent by [facility] doctor for bleb leak OS X 4 days IOP was 0 yesterday Today 03/23/2025 Brisk leak OS - IOP 7.8 - AC deep - no choroidals - Discussed conservative management vs surgery, discussed R/B/A of each - BCL placed today 03/23/2025 - timolol BID OS, moxifloxacin QID OS - follow up with Dr. Martinez 04/06/25 - will post for bleb revision 04/12 and if still leaking 04/06 will revise 04/12 REVIEW OF SYSTEMS: General: No weight loss, malaise or fevers. Neurological: +BPPV. No history of TIA's, stroke, SUPERVISOR URANIUM PROCESSING tumor, impaired sensorium, hemiplegia, paraplegia or quadraplegia. [...] pain, CHF, congenital heart defect, DVT/PE, recent AL, PTCA, open heart surgery and valve surgery. GI: Negative for: abdominal pain, dysphagia, GERD, hepatitis, irritable bowel syndrome, inflammatory bowel disease, liver disease, nausea, pancreatitis, vomiting and ETOH >2 drinks/day. : No history of dysuria, frequency or incontinence, stones or chronic kidney disease. No difficulty urinating, nocturia > 1 time per night or hematuria. SKIN WASHER: Negative for abnormal vaginal bleeding, abnormal vaginal discharge. Endocrine: No history of diabetes. Has not taken steroids within the past 30 days. No history of endocrinological symptoms or problems. Hematology: Positive for: chronic anti-coagulation/platelet meds. Patient is on anti- coagulation/platelet medication(s): Aspirin. Negative for: anemia, bruises/bleeds easily [...] Dr. Cynthia Ramos M.D. [place] [address] FAMILY HISTORY Problem Relation Age of Onset Heart Father Age 61 Ovarian cancer Maternal Grandmother Heart Maternal Grandfather Cancer Paternal Grandmother Breast Heart Son AL Cancer Maternal Aunt 55 ovarian cancer Glaucoma [...] bedtime as needed (for insomnia.) for up to90 days. Yes SAW PALMETTO ORAL Take by [...] 8760 hours). Recent Results (from the past 94062 hours) ECHO Collection Time: 07/09/22 3:24 PM [...] instructions and voices comprehension and compliance. 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 [...] Expiration Date: 06/23/2025 REASON FOR VISIT: Allie Rutledge is a 54 year old female who [...] data. CHIEF COMPLAINT: Pre-op exam HPI: Allie Rutledge is a 54 year old seen for PAC due to scheduled above surgery because Leaking of conjunctival drainage bleb. 03/23/25, Dr. Figueroa Urgent visit for bleb leak OS Sent by [facility] doctor for bleb leak OS X 4 days IOP was 0 yesterday Today 03/23/2025 Brisk leak OS - IOP 7.8 - AC deep - no choroidals - Discussed conservative management vs surgery, discussed R/B/A of each - BCL placed today 03/23/2025 - timolol BID OS, moxifloxacin QID OS - follow up with Dr. Martinez 04/06/25 - will post for bleb revision 04/12 and if still leaking 04/06 will revise 04/12 REVIEW OF SYSTEMS: General: No weight loss, malaise or fevers. Neurological: +BPPV. No history of TIA's, stroke, SUPERVISOR URANIUM PROCESSING tumor, impaired sensorium, hemiplegia, paraplegia or quadraplegia. [...] pain, CHF, congenital heart defect, DVT/PE, recent AL, PTCA, open heart surgery and valve surgery. GI: Negative for: abdominal pain, dysphagia, GERD, hepatitis, irritable bowel syndrome, inflammatory bowel disease, liver disease, nausea, pancreatitis, vomiting and ETOH >2 drinks/day. : No history of dysuria, frequency or incontinence, stones or chronic kidney disease. No difficulty urinating, nocturia > 1 time per night or hematuria. SKIN WASHER: Negative for abnormal vaginal bleeding, abnormal vaginal discharge. Endocrine: No history of diabetes. Has not taken steroids within the past 30 days. No history of endocrinological symptoms or problems. Hematology: Positive for: chronic anti-coagulation/platelet meds. Patient is on anti- coagulation/platelet medication(s): Aspirin. Negative for: anemia, bruises/bleeds easily [...] Dr. Cynthia Ramos M.D. [place] [address] FAMILY HISTORY Problem Relation Age of Onset Heart Father Age 61 Ovarian cancer Maternal Grandmother Heart Maternal Grandfather Cancer Paternal Grandmother Breast Heart Son AL Cancer Maternal Aunt 55 ovarian cancer Glaucoma [...] bedtime as needed (for insomnia.) for up to90 days. Yes SAW PALMETTO ORAL Take by [...] 8760 hours). Recent Results (from the past 24889 hours) ECHO Collection Time: 07/09/22 3:24 PM [...] SIGNATURE: Emily Chaparro APRN.CNP PATIENT NAME: Allie Rutledge DATE: March 24, 2025 TIME: 3:02 PM PAGER/CONTACT #: documented in this encounterKet[facility]07-23-2025 Instructions* Patient Instructions* Emily Chaparro APRN.CNP - 03/24/2025 3:02 PM EDT Images from the original note were not included. [place] [facility] PATIENT PREOPERATIVE INSTRUCTIONS No ref. provider found has scheduled you for your procedure at this surgery center: [facility]: [phone] --[facility] [place], [address], [place] [address]. Please read below carefully for your personalized [...] take this medication in the morning, take themorning of surgery. atorvastatin (LIPITOR) 40 mg tablet [...] office. If you are currently using a exzd-oft-aykv injectable or oral medication for diabetes or weight loss such as Dulaglutide (Trulicity), Exenatide (Byetta, Bydureon), Liraglutide (Victoza, Saxenda), Semaglutide (Ozempic, Wegovy, Rybelsus), or Tirzepatide (Mounjaro), the medicine should be stopped at least 7 days before surgery. These medicines can cause food to remain in your stomach for a very longtime and increase the risks from surgery and [...] Procedures: - YOU MUST HAVE A RESPONSIBLE CANNON FIRE DIRECTION SPECIALIST TAKE YOU HOME. A PLANNING OFFICIAL OR SEARCH DIRECTOR CANNOT BE MADE A RESPONSIBLE CANNON FIRE DIRECTION SPECIALIST. - We recommend that a responsible person stays with you overnight to take care of you. - You cannot stay in a hotel alone after outpatient surgery. You will not be permitted to have yoursurgery, if you do not have someone to [...] Advance Directive, please fax a copy to [phone] or email to for it to be added to your chart. If you do not have an Advance Directive, you can find the appropriate form and more information at [email or web address]. We recommend that youcomplete the Advance Directive form found on the website and bring it with you the day of your surgery. It can be witnessed and scanned into your chart that day. Emily Chaparro APRN.DEBORAH documented in this encounterK[facility]-23-[facility]25 Telephone encounter Note * Telephone Encounter - Adriana Talbert MD - 03/24/2025 2:18 PM EDT I told Dr. Martinez I would do the surgery. Yesteday while patient was seeing Dr. Martinez, Dr. Martinez reached out to me and I spoke [...] but called back today as documented below. [facility] Work Phone: 1(555) 622-393107-23-2025 Miscellaneous Notes* Telephone Encounter - Adriana Talbert MD - 03/24/2025 2:18 PM EDT I told Dr. Martinez I would do the surgery. Yesteday while patient was seeing Dr. Martinez, Dr. Martinez reached out to me and I spoke [...] but called back today as documented below. * Telephone Encounter - Jackelin Fields - 03/24/2025 9:40 AM EDT Allie Rutledge CCF# [id number] Patient calling w/update BCL Contact not working Leaking fluid still, face is wet and sticky Janet Martinez MD filed at 03/23/2025 3:55 PM Status: Signed Urgent visit for bleb leak OS Sent by [facility] doctor for bleb leak OS X 4 days IOP was 0 yesterday Today 03/23/2025 Brisk leak OS - IOP 7.8 - AC deep - no choroidals - Discussed conservative management vs surgery, discussed R/B/A of each - BCL placed today 03/23/2025 - timolol BID OS, moxifloxacin QID OS - follow up with Dr. Martinez 04/06/25 - will post for bleb revision 04/12 and if still leaking 04/06 will revise 04/12 documented in this encounterKettering [facility]07-23-2025 Telephone encounter Note * Telephone Encounter - Jackelin Fields - 03/24/2025 9:40 AM EDT Allie Rutledge CCF# [id number] Patient calling w/update BCL Contact not working Leaking fluid still, face is wet and sticky Janet Martinez MD filed at 03/23/2025 3:55 PM Status: Signed Urgent visit for bleb leak OS Sent by [facility] doctor for bleb leak OS X 4 days IOP was 0 yesterday Today 03/23/2025 Brisk leak OS - IOP 7.8 - AC deep - no choroidals - Discussed conservative management vs surgery, discussed R/B/A of each - BCL placed today 03/23/2025 - timolol BID OS, moxifloxacin QID OS - follow up with Dr. Martinez 04/06/25 - will post for bleb revision 04/12 and if still leaking 04/06 will revise 04/12 [facility] Work Phone: 1(456) 339-522607-22-2025 NoteDate of Procedure 03/23/2025. Bench Mover Information Environmental Health Physician: TOO. Notes Bleb leak [id number] NoteDate of Procedure 03/23/2025. Bench Mover Information Environmental Health Physician: TOO. 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 Notes No choroidals Document baseline disc [id number] NoteDate of Procedure 03/23/2025. Bench Mover Information Environmental Health Physician: TOO. Quality Right Eye Good. Left Eye Good. NFL Interpretation Right Eye Superior loss, Inferior loss. Left Eye Normal.[id number] NoteTable formatting from the original result was not included. Date of Procedure 03/23/2025. Notes Ophthalmology Exam Pachymetry (03/23/2025, 03/23/25) Right Left Thickness 543, 540 540,530 Edited by: Saranya Buchanan OA [id number] Instructions* Patient Instructions* Shyanne Parmar MD - 03/23/2025 3:07 PM EDT Please take timolol (yellow top) twice a day in the left eye And moxifloxacin (mora top) four times a day in the left eye documented in this encounterKettering Health [facility]07-22-2025 NoteHNO ID: [id number] Author: JANET MARTINEZ MD Service: ? Author Type: Physician Type: Progress Notes Filed: 03/23/2025 15:55 Note Text: Urgent visit for bleb leak OS Sent by [facility] doctor for bleb leak OS X 4 days IOP was 0 yesterday Today 03/23/2025 Brisk leak OS - IOP 7.8 - AC deep - no choroidals - Discussed conservative management vs surgery, discussed R/B/A of each - BCL placed today 03/23/2025 - timolol BID OS, moxifloxacin QID OS - follow up with Dr. Martinez 04/06/25 - will post for bleb revision 04/12 and if still leaking 04/06 will revise 04/12 I have confirmed and edited as necessary the relevant HPI, ophthalmic history, ROS, and the neuro exam findings as obtained by others. I have seen and examined Allie Rutledge. I have discussed the case and the management of this patient's care with Dr. Shyanne Parmar PGY-2. I also have reviewed and agree with the assessment and plan as stated above and agree with all of its relevant components. Janet Martinez MD 03/23/2025[facility]07-22-2025 History of Present illness Narrative* Janet Martinez MD - 03/23/2025 2:24 PM EDT Urgent visit for bleb leak OS Sent by [facility] doctor for bleb leak OS X 4 days IOP was 0 yesterday Today 03/23/2025 Brisk leak OS - IOP 7.8 - AC deep - no choroidals - Discussed conservative management vs surgery, discussed R/B/A of each - BCL placed today 03/23/2025 - timolol BID OS, moxifloxacin QID OS - follow up with Dr. Martinez 04/06/25 - will post for bleb revision 04/12 and if still leaking 04/06 will revise 04/12 I have confirmed and edited as necessary the relevant HPI, ophthalmic history, ROS, and the neuro exam findings as obtained by others. I have seen and examined Allie Rutledge. I have discussed the case and the management of this patient's care with Dr. Shyanne Parmar PGY-2. I also have reviewed and agree with the assessment and plan as stated above and agree with all of its relevant components. Janet Martinez MD 03/23/2025 documented in this encounterKettering [facility]07-22-2025 Telephone encounter Note * Telephone Encounter - Barbie Alicea - 03/23/2025 10:46 AM EDT Appointment scheduled with at 12:30. Patient advised to arrive on empty stomach. States she did have a granola bar and took medications around 9 am. *documentation is in secure chat* Barbie Alicea March 23, 2025 10:48 AM [facility]07-22-2025 Miscellaneous Notes* Telephone Encounter - Barbie Alicea - 03/23/2025 10:46 AM EDT Appointment scheduled with at 12:30. Patient advised to arrive on empty stomach. States she did have a granola bar and took medications around 9 am. *documentation is in secure chat* Barbie Alicea March 23, 2025 10:48 AM * Telephone Encounter - Janet Rivero RN - 03/23/2025 9:55 AM EDT Response from Dr. Ramos: yes I can see her sooner but this needs urgent revision and I'm leaving for [place] morninguntil April 07. Maybe its better to go to [facility] to be cared for Left message for patient to call the office to obtain the above information. Barbie Alicea reaching out to [facility] scheduling to find the availability of a cardiac exercise specialist to take over patient care with Dr. Ramos going out of the country. Janet Rivero RN March 23, 2025 10:00 AM * Telephone Encounter - Janet Rivero RN - 03/23/2025 9:50 AM EDT Spoke with patient. Sent the following message to Dr. Ramos in a Urgent Secure Chat regarding conversation: Received chart notes from [facility] Ankur Curtis MD. Patient has loose Exposed [...] 23, 2025 9:54 AM documented in this encounterKettering [facility]07-22-2025 Telephone encounter Note * Telephone Encounter - Janet Rivero RN - 03/23/2025 9:55 AM EDT Response from Dr. Ramos: yes I can see her sooner but this needs urgent revision and I'm leaving for [place] tomorrow morninguntil April 07. Maybe its better to go to [facility] to be cared for Left message for patient to call the office to obtain the above information. Barbie Alicea reaching out to [facility] scheduling to find the availability of a cardiac exercise specialist to take over patient care with Dr. Ramos going out of the country. Janet Rivero RN March 23, 2025 10:00 AM [facility]07-22-2025 Telephone encounter Note* Telephone Encounter - Janet Rivero RN - 03/23/2025 9:50 AM EDT Spoke with patient. Sent the following message to Dr. Ramos in a Urgent Secure Chat regarding conversation: Received chart notes from [facility] Ankur Curtis MD. Patient has loose Exposed [...] Rivero RN March 23, 2025 9:54 AM T [facility]07-15-2025 NotePatient Outreach (INTMMN) ALLIE RUTLEDGE ([id number]) 1970 F [place] Date Time Provider Department 03/16/25 IFEOMA DAVIS INTBRIDGETTE During your visit today, we recorded the [...] VICODIN (HYDROCODONE-ACETAMINOPHE*04/28/2012 9 - Itching Date Reviewed: 12/29/2024 Reviewed by: Janet Meza LPN - Fully Assessed Visit Diagnosis:Mixed hyperlipidemia [E78.2] Order(s):LIPID PANEL, FASTING [SQLIPB] Order #: [id number] FUTURE Prescriptions as of 03/19/2025 - meloxicam [...] daily. 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] 04/15/2017 [...] Encounter Status:Closed by EPIC, (more content not included)...[facility]07-09-2025 Evaluation note* Diagnosis Onset Date Resolution Status Admit Date 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 acute March 10, 2025 2 :26pm Greater trochanteric bursiti s of left hip acute March 10, 2025 2 :26pm Lumbar spondylosis acute March 102024 2:26pm [facility] [employer] Work Phone: 1(172) 110-769407-09-2025 Evaluation note* Diagnosis Onset Date Resolution Status Admit Date 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 acute March 10, 2025 2 :26pm Greater trochanteric bursiti s of left hip acute March 10, 2025 2 :26pm Lumbar spondylosis acute March 102024 2:26pm Degenerative scoliosis acute Au juanis 2024 2:23pm Hip arthritis acute April 2:23pm Lumbar radiculopathy acute Augu st 2024 2:23pm Spondylolisthesis acute April 16, 2025 2:23pm [facility] Work Phone: 1(473) 284-711307-09-2025 Evaluation note* Diagnosis Onset Date Resolution Status Admit Date 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 acute March 10, 2025 2 :26pm Greater trochanteric bursiti s of left hip acute March 10, 2025 2 :26pm Lumbar spondylosis acute March 102024 2:26pm Degenerative scoliosis acute Au juanis 2024 2:23pm Hip arthritis acute April 2:23pm Lumbar radiculopathy acute Augu st 2024 2:23pm Spondylolisthesis acute April 16, 2025 2:23pm Degenerative scoliosis acute Oc 2024 3:14pm Hip arthritis acute June 3:14pm Lumbar radiculopathy acute Octo 2024 3:14pm Spondylolisthesis acute June 03, 2025 3:14pm [facility] Work Phone: 1(999) 647-611707-09-2025 Evaluation note* Diagnosis Onset Date Resolution Status Admit Date 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 acute March 10, 2025 2 :26pm Greater trochanteric bursiti s of left hip acute March 10, 2025 2 :26pm Lumbar spondylosis acute March 102024 2:26pm Degenerative scoliosis acute Au juanis 2024 2:23pm Hip arthritis acute April 2:23pm Lumbar radiculopathy acute Augu st 2024 2:23pm Spondylolisthesis acute April 16, 2025 2:23pm Degenerative scoliosis acute Oc tober 2024 3:14pm Hip arthritis acute June 3:14pm Lumbar radiculopathy acute Octo 2024 3:14pm Spondylolisthesis acute June 03, 2025 3:14pm 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 Please place order at this time. Yesi Nix LPN [facility]-30-2025 Miscellaneous Notes* Telephone Encounter - YESI NIX - 03/01/2025 7:55 AM EDT Patient scheduled for nurse visit 03/02/25 to receive TDAP vaccine. Please place order at this time. Yesi Nix LPN documented in this encounterKettering Health [facility]06-26-2025 Telephone encounter Note * Telephone Encounter - Spring Peñaloza RN - 02/25/2025 1:26 PM EDT Pt called in and was asking if she was up to date on her TDAP vaccine, because she is going to visit her new grand baby. Please place the order for the vaccine as she will be coming in to get this with AL nurse on 03/03/25. Spring Peñaloza RN [facility]06-26-2025 Miscellaneous Notes* Telephone Encounter - Spring Peñaloza RN - 02/25/2025 1:26 PM EDT Pt called in and was asking if she was up to date on her TDAP vaccine, because she is going to visit her new grand baby. Please place the order for the vaccine as she will be coming in to get this with AL nurse on 03/03/25. Spring Peñaloza RN documented in this encounterKettering [facility]05-14-2025 Telephone encounter Note * Telephone Encounter - Janet Meza LPN - 01/13/2025 10:27 AM EDT Called and updated patient, patient will call back with alternate supplier Janet Meza LPN January 13, 2025 10:28 AM [facility]-14-2025 Miscellaneous Notes* Telephone Encounter - Janet Meza LPN - 01/13/2025 10:27 AM EDT Called and updated patient, patient will call back with alternate supplier Janet Meza LPN January 13, 2025 10:28 AM * Telephone Encounter - Allie Mcknight LPN - 01/13/2025 9:12 AM EDT Roman from [facility] said they do not carry that item requested. * Telephone Encounter - Janet Meza LPN - 01/13/2025 8:10 AM EDT Faxed order to [facility] per patient request Janet Meza LPN January 13, 2025 8:10 AM * Telephone Encounter - Angelica Arreola RN - 01/12/2025 10:38 AM EDT Patient reports she has lost her blindness cane. States she spoke with her insurance company [employer] and they state for PCP to write a new order and send to [employer] company. Order pended for provider review. Please fax order to [facility]. Please call patient with an update. Angelica Arreola RN documented in this encounterKettering Health [facility]05-14-2025 Telephone encounter Note * Telephone Encounter - Allie Mcknight LPN - 01/13/2025 9:12 AM EDT Roman from [facility] calling said they do not carry that item requested. [facility]-14-2025 Telephone encounter Note* Telephone Encounter - Janet Meza LPN - 01/13/2025 8:10 AM EDT Faxed order to [facility] per patient request Janet Meza LPN January 13, 2025 8:10 AM [facility]-13-2025 Telephone encounter Note* Telephone Encounter - Angelica Arreola RN - 01/12/2025 10:38 AM EDT Patient reports she has lost her blindness cane. States she spoke with her insurance company [employer] and they state for PCP to write a new order and send to [employer]. Order pended for provider review. Please fax order to [facility]. Please call patient with an update. Angelica Arreola RN [facility]05-13-2025 Telephone encounter Note* Telephone Encounter - Shabbir Berkowitz LPN - 01/12/2025 8:32 AM EDT CPAP supply order faxed. Shabbir Berkowitz LPN [facility]-13-2025 Miscellaneous Notes* Telephone Encounter - Shabbir Berkowitz LPN - 01/12/2025 8:32 AM EDT CPAP supply order faxed. Shabbir Berkowitz LPN documented in this encounterKettering Health [facility]04-30-2025 Telephone encounter Note * Telephone Encounter - [...] she is legally blind and doesn't drive. [facility]04-30-2025 Miscellaneous Notes* Telephone Encounter - Clint Brennan [...] doesn't drive. * Telephone Encounter - Letty Moarles LPN - 12/30/2024 11:26 AM EDT TC to pt with no answer, left VM to return call. Please confirm if she is referring to her sleep study. I called patient on December 17 with the results and sent her CPAP orders to [facility] in [place]. They should be reaching out to her to set up machine. Letty Morales LPN * Telephone Encounter - Eve Tracey - 12/30/2024 8:38 AM EDT Patient calling in to let Michelle Becerril know her results from her CPAP are now in her chart. She is asking if she had the chance to review them. Please review and advise patient. Eve Tracey December 30, 2024 8:39 AM documented in this encounterKettering Health [facility]04-30-2025 Telephone encounter Note * Telephone Encounter - Letty Morales LPN - 12/30/2024 11:26 AM EDT TC to pt with no answer, left VM to return call. Please confirm if she is referring to her sleep study. I called patient on December 17 with the results and sent her CPAP orders to [facility] in [place]. They should be reaching out to her to set up machine. Letty Morales LPN [facility]04-30-2025 Telephone encounter Note* Telephone Encounter - Eve Tracey - 12/30/2024 8:38 AM EDT Patient calling in to let Michelle Becerril know her results from her CPAP are now in her chart. She is asking if she had the chance to review them. Please review and advise patient. Eve Rudy Tracey December 30, 2024 8:39 AM [facility]04-29-2025 NoteHNO ID: [id number] Author: IFEOMA DAVIS MD Service: ? 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 She [...] Plan 1. 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 She [...] excuse any unintended typographical errors. Recording using [employer] software for draft documentation of the visit was discussed with the patient/authorized field representative; all questions welcomed and answered. Patient/authorized field representative agreed to proceed Ifeoma Davis MD documented in this encounterKettering Health [facility]04-23-2025 Telephone encounter Note * Telephone Encounter - [...] is changing pharmacies from mail order to [facility] so needs a new rx sent Sharifa Amaral RN December 23, 2024 12:45 PM [facility]04-23-2025 Miscellaneous Notes* Telephone Encounter - Sharifa Amaral [...] is changing pharmacies from mail order to [facility] so needs a new rx sent Sharifa Amaral RN December 23, 2024 12:45 PM documented in this encounterKettering [facility]04-17-2025 Telephone encounter Note * Telephone Encounter - Letty Morales LPN - 12/17/2024 2:56 PM EDT TC to pt who voiced understanding. Agreeable to [facility] in [place]. 31-90 day follow up made. Letty Morales LPN [facility]04-17-2025 Miscellaneous Notes* Telephone Encounter - Letty Morales LPN - 12/17/2024 2:56 PM EDT TC to pt who voiced understanding. Agreeable to [facility] in [place]. 31-90 day follow up made. Letty Morales LPN * Telephone Encounter - Michelle Becerril APRN.TALENT MANAGER - 12/17/2024 1:24 PM EDT Please CALL pt with result of sleep study--it confirms that she has sleep apnea so I will prescribeautoCPAP for her. Will plan to send to [facility] unless she has another DME she wants to use. Michelle Becerril APRN.CNP documented in this encounterKettering [facility]04-17-2025 Telephone encounter Note * Telephone Encounter - Michelle Becerril APRN.CNP - 12/17/2024 1:24 PM EDT Please CALL pt with result of sleep study--it confirms that she has sleep apnea so I will prescribeautoCPAP for her. Will plan to send to [facility] unless she has another DME she wants to use. Michelle Becerril APRN.CNP [facility]04-09-2025 Evaluation note* Diagnosis Onset Date Resolution Status Admit Date Greater trochanteric bursiti s of left hip acute December 09, 2024 1:22pm Rotator cuff tendonitis acute A pril 2024 1:22pm [facility] Work Phone: 1(543) 264-835404-08-2025 Telephone encounter Note* Telephone Encounter - Janet Meza LPN - 12/08/2024 10:05 AM EDT Called and left message for patient, on self identified voicemail Janet Meza LPN December 08, 2024 10:05 AM [facility]04-08-2025 Miscellaneous Notes* Telephone Encounter - Janet Meza LPN - 12/08/2024 10:05 AM EDT Called and left message for patient, on self identified voicemail Janet Meza LPN December 08, 2024 10:05 AM * Telephone Encounter - Ifeoma Davis MD - 12/07/2024 5:36 PM EDT Rx for her. Ifeoma Flores MD * Telephone Encounter - Dara Valdez [...] advise, Dara Valdez RN documented in this encounterKettering [facility]04-07-2025 Telephone encounter Note * Telephone Encounter - Ifeoma Davis MD - 12/07/2024 5:36 PM EDT Rx for her. Ifeoma Flores MD [facility]04-07-2025 Telephone encounter Note* Telephone Encounter - Jackie Freitas MA - 12/07/2024 11:35 AM EDT This was ordered by sleep provider: Michelle Becerril. Results must come from ordering provider. Once sleep provider receives results the sleep office will contact patient. Jackie Freitas MA [facility]04-07-2025 Miscellaneous Notes* Telephone Encounter - Jackie Freitas MA - 12/07/2024 11:35 AM EDT This was ordered by sleep provider: Michelle Becerril. Results must come from ordering provider. Once sleep provider receives results the sleep office will contact patient. Jackie Freitas MA * Telephone Encounter - Rupa George - 12/07/2024 10:04 AM EDT Patient calling again for status update on sleep study results. PSS reviewed provider's response in unread [employer] Message. Patient asking to be contacted as soon as results are in. She states she is struggling to sleep. * Telephone Encounter - Dara Valdez RN - 12/01/2024 8:58 AM EDT Patient calls and states that she was at [facility] for Sleep study on 11/17/2024. Patient asking about results for sleep study. Please review and advise, Dara Valdez RN documented in this encounterKettering [facility]04-07-2025 Telephone encounter Note * Telephone Encounter - [...] Please review and advise, Dara Valdez RN [facility]04-07-2025 Telephone encounter Note* Telephone Encounter - Rupa George - 12/07/2024 10:04 AM EDT Patient calling again for status update on sleep study results. PSS reviewed provider's response in unread [employer] Message. Patient asking to be contacted as soon as results are in. She states she is struggling to sleep. [facility]04-01-2025 Telephone encounter Note* Telephone Encounter - Dara Valdez RN - 12/01/2024 8:58 AM EDT Patient calls and states that she was at [facility] for Sleep study on 11/17/2024. Patient asking about results for sleep study. Please review and advise, Dara Valdez RN [facility]03-25-2025 Radiology Diagnostic study note [facility] Imaging Services [address], [place] [id number] Hip Min 2 Views (Portable) MR#: [id number] Acct: [id number] Name: ALLIE RUTLEDGE ANN Rep #: [id number] : 1970 F 54 From: [place] Weathers DO PCP: Dr. Ifeoma Davis MD Status: REG C WALLY Study:Hip Min 2 Views (Portable) Date of Exam : 11/24/24 Exam# [id number] Ordering Dr: Allie Prakash PROCEDURE: HIP MIN [...] of the left groin region. Reading Location: [id number] CC: Allie Prakash; Dr. Ifeoma Davis MD ~ Slumber Room Attendant: Signed [facility]03-21-2025 Telephone encounter Note* Telephone Encounter - Spring Peñaloza RN - 11/20/2024 12:46 PM EDT Pt called and is notified of providers results and instructions. Pt voices understanding. Spring Peñaloza RN [facility]03-21-2025 Miscellaneous Notes* Telephone Encounter - Spring Peñaloza [...] 71 Legend: (L) Low documented in this encounterKet[facility]03-21-2025 Telephone encounter Note * Telephone Encounter - [...] decrease nausea. Thank you David Anna APRN.DEBORAH [facility]03-21-2025 Telephone encounter Note* Telephone Encounter - Allie Mcknight LPN - 11/20/2024 10:38 AM EDT Patient calling asking about her lab results that she had done yesterday, she can see results on [employer]. Glucose was abnormal at 73, she said [...] eGFR >=60 mL/min/1.73m 71 Legend: (L) Low [facility]03-20-2025 NoteHNO ID: [id number] Author: DAVID ANNA APRN.TALENT MANAGER Service: ? Author Type: Nurse Practitioner Type: Progress Notes Filed: 11/19/2024 14:20 Note Text: CC: Patient presents with: Recheck: 2 week follow up HPI Allie Rutledge is a 54 year old female who [...] ago for consistent elevated blood pressure. Ms. Rutledge denies headache, chest pain, palpitations, dyspnea, and [...] Dr. Cynthia Ramos M.D. S BALLOON,[place]ER[place] ABLATION [address] ALLERGIES Ultram [Tramadol Hcl], Darvocet A500 [Propoxyphene [...] spray Use 2 S (more content not included)...[facility]03-20-2025 History of Present illness Narrative* David Anna APRN.TALENT MANAGER - 11/19/2024 12:58 PM EDT CC: Patient presents with: Recheck: 2 week follow up HPI Allie Rutledge is a 54 year old female who [...] ago for consistent elevated blood pressure. Ms. Rutledge denies headache, chest pain, palpitations, dyspnea, and [...] adenoma CT MAXILLOFAC/SINUS 06/29/2015 normal EGD W/O [facility] SPEC VARICIES INJ 05/30/2023 Small hiatal hernia, [...] Dr. Cynthia Ramos M.D. S BALLOON,UTERINE ABLATION [address] ALLERGIES Ultram [Tramadol Hcl], Darvocet A500 [Propoxyphene [...] Maternal Aunt 55 ovarian cancer Heart Son AL Ovarian cancer Maternal Grandmother Glaucoma No Family [...] Influenza Vaccine(1) due on 03/01/2025 Covid-19 Vaccine( season) due on 10/12/2025 Depression Screening due [...] - Instructed patient to contact office or [id number] after-hours promptly should condition worsen or any new symptoms appear. - Counseling Center [facility] and after hours crisis line 4. Anxiety [...] Patient agreeable to treatment plan. David Anna APRN.CNP documented in this encounterKet[facility]03-06-2025 Telephone encounter Note * Telephone Encounter - Janet Meza LPN - 11/05/2024 1:23 PM EST Patient updated via active [employer] Janet Meza LPN November 05, 2024 1:23 PM [facility]03-06-2025 Miscellaneous Notes* Telephone Encounter - Janet Meza LPN - 11/05/2024 1:23 PM EST Patient updated via active [employer] Janet Meza LPN November 05, 2024 1:23 [...] Regards, Ifeoma Davis MD documented in this encounterKettering Health [facility]03-06-2025 Telephone encounter Note * Telephone Encounter - Janet MezaJOLIE - 11/05/2024 1:22 PM EST ----- Message from Ifeoma Davis MD sent at 11/05/2024 11:42 AM EST ----- Allie, Your labs are all normal including iron, vit b12, vit d, thyroid. Ferritin although it is on the lower side, it still is low, would advice that she take otc iron pills to see if that would help her fatigue. Regards, Ifeoma Davis MD [facility]03-04-2025 Instructions* Patient Instructions* Ifeoma Davis MD - 11/03/2024 2:51 PM EST Try taking the percocet without trazodone to see if that helps sleep with out feeling like a hang over. documented in this encounterKettering [facility]03-04-2025 NoteHNO ID: [id number] Author: IFEOMA DAVIS MD Service: ? Author Type: Physician Type: Progress Notes Filed: 11/03/2024 17:33 Note Text: CC: Patient presents with: Recheck: 10/31/24 UA done at urgent care, always tired HPI Allie Rutledge is a 53 year old female who presents today for 6-month follow-up. 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 Dr. 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 States she has not had a bleed in her eye at a long time, but at the same time she states she wouldn't see it at this point. Slowly progressive loss of peripheral vision. Patient also reports that she has issues with calcified joints/arthritis. She has moved back to [place], so she can use the [employer] for going places, [employer]. She is engaged in a lot of activities, and is giving back to the community as much as she can in every way she can. She has a son in [place], and a brother near by. Her eyes [...] extremely active in the community. Takes the [employer] [place] to [employer] every Saturday, [...] available full-time. Needs include home health aid, longterm if applicable - says her boyfriend could [...] Had worked with an OT previously through [employer] in [place] previously who assisted with various techniques and [...] 100 mgs is a (more content not included)...[facility]03-04-2025 History of Present illness Narrative* Ifeoma Davis MD - 11/03/2024 2:24 PM EST CC: Patient presents with: Recheck: 10/31/24 UA done at urgent care, always tired HPI Allie Rutledge is a 53 year old female who presents today for 6-month follow-up. 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 Dr. 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 States she has not had a bleed in her eye at a long time, but at the same time she states she wouldn't see it at this point. Slowly progressive loss of peripheral vision. Patient also reports that she has issueswith calcified joints/arthritis. She has moved back to [place], so she can use the [employer] for going places, [employer]. She is engaged in a lot of activities, and is giving back to the community as much as she can in every way she can. She has a son in [place], and a brother near by. Her eyes [...] extremely active in the community. Takes the [employer] bus to [employer] every Saturday, [...] available full-time. Needs include home health aid, longterm if applicable - says her boyfriend could [...] Had worked with an OT previously through [facility] in [place] previously who assisted with various techniques and [...] Maternal Aunt 55 ovarian cancer Heart Son AL Ovarian cancer Maternal Grandmother Glaucoma No Family [...] DIFFERENTIAL Ifeoma Davis MD documented in this encounterKet[facility]03-03-2025 Telephone encounter Note * Telephone Encounter - Laura Lepe MA - 11/02/2024 7:50 AM EST Patient given results and verbalized understanding of instructions given. Laura Lepe MA [facility]03-03-2025 Miscellaneous Notes* Telephone Encounter - Laura Lepe MA - 11/02/2024 7:50 AM EST Patient given results and verbalized understanding of instructions given. Laura Lepe MA * Telephone Encounter - Britta Gunn PA - 11/02/2024 7:10 AM EST Please let patient know urine culture did not reveal clear evidence of UTI. If she is persistent with symptoms, please follow-up with PCP. documented in this encounterKet[facility]03-03-2025 Telephone encounter Note * Telephone Encounter - Britta Gunn PA - 11/02/2024 7:10 AM EST Please let patient know urine culture did not reveal clear evidence of UTI. If she is persistent with symptoms, please follow-up with PCP. [facility]03-01-2025 Instructions* Patient Instructions* Chantal Segura APRN.CNP - 10/31/2024 1:21 PM EST Keflex [...] pain go to ER. documented in this encounterKettering Health [facility]03-01-2025 NoteHNO ID: [id number] Author: CHANTAL SEGURA APRN.DEBORAH Service: ? Author Type: Nurse Practitioner Type: Progress Notes Filed: 10/31/2024 13:22 Note Text: Subjective The history is provided by the patient. No educational speech language clinician was used. HPI Allie Rutledge is a 54 year old female who [...] have confirmed and edited as necessary, the [facility] Review of Systems Constitutional: Negative for [...] in detail warranting prompt ER evaluation. franko Segura APRN.CNPCleveland [facility]03-01-2025 History of Present illness Narrative* Chantal Segura APRN.DEBORAH - 10/31/2024 1:12 PM EST Subjective The history is provided by the patient. No educational speech language clinician was used. HPI Allie Rutledge is a 54 year old female who [...] have confirmed and edited as necessary, the [facility] Review of Systems Constitutional: Negative for [...] discussed indetail warranting prompt ER evaluation. franko Segura APRN.CNP documented in this encounterK[facility]02-19-2025 History of Present illness Narrative* Kimberley Salmeron Mammo Tech - 10/21/2024 2:20 PM EST Radiology Service Progress Note PATIENT NAME: Allie Rutledge DATE OF SERVICE: October 21, 2024 TIME: [...] PATIENT PRESENTS WITH AN IMPLANTABLE OR ATTACHED ASSESSMENT MANAGER: No RADIOLOGY DEPARTMENT: Mammography PERIPHERAL IV DATA: Not applicable SIGNED BY: Rubin Carlton October 21, 2024 2:00 PM documented in this encounterKet[facility]02-19-2025 NoteHNO ID: [id number] Author: KIMBERLEY SALMERON Mammo Tech Service: ? Author Type: Bench Mover Type: Progress Notes Filed: 10/21/2024 14:00 Note Text: Radiology Service Progress Note PATIENT NAME: Allie Rutledge DATE OF SERVICE: October 21, 2024 TIME: [...] PATIENT PRESENTS WITH AN IMPLANTABLE OR ATTACHED ASSESSMENT MANAGER: No RADIOLOGY DEPARTMENT: Mammography PERIPHERAL IV DATA: Not applicable SIGNED BY: Rubin Carlton October 21, 2024 2:00 [facility]02-14-2025 Telephone encounter Note* Telephone Encounter - Letty Morales LPN - 10/16/2024 2:27 PM EST TC to Dr. Fox office, [facility] did not receive fax. Sent again. Staff will make sure to speak withDr. Fox. Letty Morales LPN [facility]02-14-2025 Miscellaneous Notes* Telephone Encounter - Letty Morales LPN - 10/16/2024 2:27 PM EST TC to Dr. Fox office, [facility] did not receive fax. Sent again. Staff will make sure to speak withDr. Fox. Letty Morales LPN * Telephone Encounter - Letty Morales LPN - 09/28/2024 8:51 AM EST Office note faxed per request. Letty Morales LPN * Telephone Encounter - Michelle Becerril APRN.CNP - 09/25/2024 4:36 PM EST Please print my note and I'll write a msg to Dr Betancourt, we can fax him, then we'll let her know. We could use [facility] lab. She can still take flexeril. Michelle Becerril APRN.DEBORAH * Telephone Encounter - Letty Morales LPN - 09/25/2024 4:26 PM EST TC to pt who had questions about flexeril, she has been taking it every night to see if it helps with the leg spasms. Wonders if she can still take this or if she will need to stop them. Is okay withincreasing the gabapentin, uses [facility] in [place]. Aware we need to talk to Dr. Betancourt. Has upcoming appts with PCP and pain management. Is okay to do a sleep study using [facility] but is unable to travel out of town very far. Letty Morales LPN * Telephone Encounter - Michelle Becerril APRN.CNP - 09/25/2024 3:52 PM EST Please CALL pt and tell her I reviewed her case with Dr Jiménez. --We looked at her [facility] sleep study report--Dr Jiménez believes she is [...] do thatwould she consider going to a [facility] sleep lab? Michelle Becerril APRN.TALENT MANAGER documented in this encounterKet[facility]02-11-2025 NoteHNO ID: [id number] Author: CYNTHIA RAMOS MD Service: ? Author [...] (IOP 24); 06/25/2022 PEIOL/suture of iridectomy (Dr. 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 The signs of infection and the importance of same-day medical attention if these signs develop were emphasized. 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 I also have reviewed and agree with the assessment and plan as stated above and agree with all of its relevant components. Cynthia Ramos MD October 13, 2024 11:05 [facility] 10-13-2024 History of Present illness Narrative* Cynthia Ramos MD - 10/13/2024 11:05 AM EST Tmax 28 , 28 03/10/2019 ; Pachy 543 , 540 Family history Gonioscopy 03/10/2019 PTM OU with 2+ TMP Lasers and surgeries OD multiple injections; SLT 180 (inferior) 01/15/2020 (IOP 28--> 21); SLT superior 180 05/09/2021 (IOP 26-->19); TBX 10/26/2021 (IOP 24); 06/25/2022 PEIOL/suture of iridectomy (Dr. 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 I also have reviewed and agree with the assessment and plan as stated above and agree with all of its relevant components. Cynthia Ramos MD October 13, 2024 11:05 AM documented in this encounterK[facility]02-11-2025 NoteDate of Procedure 10/13/2024. Bench Mover Information Environmental Health Physician: lino. Start time: 9:55 AM. Stop time: 9:55 AM. Notes -- OCT 10/13/2024 OD atrophy, no fluid; OS atrophy, nasal fluid stable, not in [id number] Telephone encounter Note* Telephone Encounter - Jackie Freitas MA - 10/12/2024 3:27 PM EST Patient at PCP appointment. Will have patient stop at discharge to schedule PSG. Jackie Freitas MA [facility]02-10-2025 Miscellaneous Notes* Telephone Encounter - Jackie Freitas MA - 10/12/2024 3:27 PM EST Patient at PCP appointment. Will have patient stop at discharge to schedule PSG. Jackie Freitas MA * Telephone Encounter - Michelle Becerril APRN.CNP - 10/08/2024 12:55 PM EST PSG ordered. Please assist pt in scheduling it at [facility]. Michelle Becerril APRN.DEBORAH * Telephone Encounter - Dara Valdez [...] advise, Dara Valdez RN documented in this encounterKet[facility]02-10-2025 NoteHNO ID: [id number] Author: IFEOMA DAVIS MD Service: ? Author Type: Physician Type: Progress Notes Filed: 10/12/2024 17:49 Note Text: CC: Patient presents with: Follow Up For: Memory impairment HPI Allie Rutledge is a 53 year old female who presents today for 6-month follow-up. 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 Dr. 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 States she has not had a bleed in her eye at a long time, but at the same time she states she wouldn't see it at this point. Slowly progressive loss of peripheral vision. Patient also reports that she has issues with calcified joints/arthritis. She has moved back to [place], so she can use the [employer] for going places, [employer]. She is engaged in a lot of activities, and is giving back to the community as much as she can in every way she can. She has a son in [place], and a brother near by. Her eyes [...] extremely active in the community. Takes the [employer] bus to [employer] every Saturday, [...] available full-time. Needs include home health aid, longterm if applicable - says her boyfriend could [...] Had worked with an OT previously through [facility] in [place] previously who assisted with various techniques and [...] Hcl], Darvocet A500 [Propox (more content not included)...[facility]02-10-2025 History of Present illness Narrative* Ifeoma Davis MD - 10/12/2024 3:09 PM EST CC: Patient presents with: Follow Up For: Memory impairment HPI Allie Rutledge is a 53 year old female who presents today for 6-month follow-up. 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 Dr. 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 States she has not had a bleed in her eye at a long time, but at the same time she states she wouldn't see it at this point. Slowly progressive loss of peripheral vision. Patient also reports that she has issueswith calcified joints/arthritis. She has moved back to [place], so she can use the [employer] for going places, [employer]. She is engaged in a lot of activities, and is giving back to the community as much as she can in every way she can. She has a son in [place], and a brother near by. Her eyes [...] extremely active in the community. Takes the [employer] bus to [employer] every Saturday, [...] available full-time. Needs include home health aid, longterm if applicable - says her boyfriend could [...] Had worked with an OT previously through [facility] in [place] previously who assisted with various techniques and [...] Maternal Aunt 55 ovarian cancer Heart Son AL Ovarian cancer Maternal Grandmother Glaucoma No Family [...] wellbutrin Ifeoma Davis MD documented in this encounterKet[facility]02-06-2025 Telephone encounter Note * Telephone Encounter - Michelle Becerril APRN.CNP - 10/08/2024 12:55 PM EST PSG ordered. Please assist pt in scheduling it at [facility]. Michelle Becerril APRN.CNP [facility]02-05-2025 NoteHNO ID: [id number] Author: CALLI GERBER APRN.CNP Service: ? Author Type: Nurse Practitioner Type: Progress Notes Filed: 10/07/2024 19:02 Note Text: CC: Patient presents with: Memory Loss: Body aches, dry mouth HPI Allie Rutledge is a 54 year old female who [...] Dr. Cynthia Ramos M.D. S BALLOON,UTERINE ABLATION [address] ALLERGIES Ultram [Tramadol Hcl], Darvocet A500 [Propoxyphene [...] USE 2 SPRAYS NASAL (more content not included)...[facility]02-05-2025 History of Present illness Narrative* Calli Gerber, [employer] - 10/07/2024 6:31 PM EST CC: Patient presents with: Memory Loss: Body aches, dry mouth HPI Allie Rutlegde is a 54 year old female who [...] Dr. Cynthia Ramos M.D. S BALLOON,UTERINE ABLATION [address] ALLERGIES Ultram [Tramadol Hcl], Darvocet A500 [Propoxyphene [...] Maternal Aunt 55 ovarian cancer Heart Son AL Ovarian cancer Maternal Grandmother Glaucoma No Family [...] Judgment: Judgment normal. Comments: MiniCog score today 5/5 ASSESSMENT/PLAN: 1. Memory impairment - ICD9: 780.93, [...] treatment options, medications, and coordinating care. Calli Gerber APRN.DEBORAH documented in this encounterK[facility]02-[facility]-2025 Telephone encounter Note * Telephone Encounter - [...] scheduled with other provider. Starla Mckeon LPN [facility]02-05-2025 Miscellaneous Notes* Telephone Encounter - Starla Mckeon [...] provider. Starla Mckeon LPN documented in this encounterKettering [facility]02-05-2025 Telephone encounter Note * Telephone Encounter - Dara Valdez RN - 10/07/2024 10:57 AM EST Patient calls and states that she had talked with provider about having another sleep study done doto issues with previous sleep study. Patient calling and asking about where she should get next onedone? Patient would also like to get this scheduled. Please review and advise, Dara Valdez RN [facility]01-28-2025 NoteHNO ID: [id number] Author: IFEOMA DAVIS MD Service: ? Author Type: Physician Type: Progress Notes Filed: 09/29/2024 17:40 Note Text: CC: Patient presents with: F/U 6 months HPI Allie Rutledge is a 53 year old female who presents today for 6-month follow-up. 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 Dr. 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 States she has not had a bleed in her eye at a long time, but at the same time she states she wouldn't see it at this point. Slowly progressive loss of peripheral vision. Patient also reports that she has issues with calcified joints/arthritis. She has moved back to [place], so she can use the [employer] for going places, [employer]. She is engaged in a lot of activities, and is giving back to the community as much as she can in every way she can. She has a son in [place], and a brother near by. Her eyes [...] extremely active in the community. Takes the [employer] bus to [employer] every Saturday, [...] available full-time. Needs include home health aid, longterm if applicable - says her boyfriend could [...] Had worked with an OT previously through [facility] in [place] previously who assisted with various techniques and [...] Mitral valve disorders(424.0) M (more content not included)...[place] [id number] History of Present illness Narrative* Ifeoma Davis MD - 09/29/2024 2:28 PM EST CC: Patient presents with: F/U 6 months HPI Allie Rutledge is a 53 year old female who presents today for 6-month follow-up. 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 Dr. 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 States she has not had a bleed in her eye at a long time, but at the same time she states she wouldn't see it at this point. Slowly progressive loss of peripheral vision. Patient also reports that she has issueswith calcified joints/arthritis. She has moved back to [place], so she can use the [employer] for going places, juany sezmi. She is engaged in a lot of activities, and is giving back to the community as much as she can in every way she can. She has a son in [place], and a brother near by. Her eyes [...] extremely active in the community. Takes the [employer] bus to [place] every Saturday, [...] available full-time. Needs include home health aid, longterm if applicable - says her boyfriend could [...] Had worked with an OT previously through [facility] in [place] previously who assisted with various techniques and [...] Dr. Cynthia Ramos M.D. S BALLOON,UTERINE ABLATION [address]137 ALLERGIES Ultram [Tramadol Hcl], Darvocet A500 [Propoxyphene [...] Maternal Aunt 55 ovarian cancer Heart Son AL Ovarian cancer Maternal Grandmother Glaucoma No Family [...] TABLET Ifeoma Davis MD documented in this encounterK[facility]-27-2025 Telephone encounter Note * Telephone Encounter - Letty Morales LPN - 09/28/2024 8:51 AM EST Office note faxed per request. Letty Morales LPN [facility]01-24-2025 Telephone encounter Note* Telephone Encounter - Michelle Becerril APRN.CNP - 09/25/2024 4:36 PM EST Please print my note and I'll write a msg to Dr Betancourt, we can fax him, then we'll let her know. We could use [facility] lab. She can still take flexeril. Michelle Becerril APRN.DEBORAH [facility] Work Phone: [phone] 402-621501-24-2025 Telephone encounter Note* Telephone Encounter - Letty Morales LPN - 09/25/2024 4:26 PM EST TC to pt who had questions about flexeril, she has been taking it every night to see if it helps with the leg spasms. Wonders if she can still take this or if she will need to stop them. Is okay withincreasing the gabapentin, uses [facility] in [place]. Aware we need to talk to Dr. Betancourt. Has upcoming appts with PCP and pain management. Is okay to do a sleep study using [facility] but is unable to travel out of town very far. Letty Morales LPN [facility]01-24-2025 Telephone encounter Note* Telephone Encounter - Michelle Becerril APRN.CNP - 09/25/2024 3:52 PM EST Please CALL pt and tell her I reviewed her case with Dr Jiménez. --We looked at her [facility] sleep study report--Dr Jiménez believes she is [...] do thatwould she consider going to a [facility] sleep lab? Michelle Becerril APRN.CNP [facility]01-23-2025 History of Present illness Narrative* Michelle Becerril APRN.CNP - 09/24/2024 3:00 PM EST Images from the original note were not included. Addendum: I reviewed her case with Dr Jiménez. We looked at her [facility] sleep study report including hypnogram--Dr Jiménez believes she is having REM-related apneas and that her PLMs were under-scored. He recommends we try increasing gabapentin from 100 mg to 300 mg at HS--I will contact Dr Betancourt about that since he prescribes it. Will recommend she avoid benedryl. We can consider another PSG with encouraging supine sleep, could give ambien that night, would prefer [facility] sleep lab but she would requirea livery car driver due to her blindness. Michelle Becerril APRN.DEBORAH [facility] New Patient Evaluation PATIENT NAME: Allie RAMIREZ OF SERVICE: September 24, 2024 CONSULTING PROVIDER: Dr Davis REASON FOR CONSULT: sends the patient for an opinion about DAYSI, blindness. My findings and recommendations will be transmitted electronically via shared medical record to the consulting provider. HPI: Allie Rutledge is a 54 year old female. Sleep-related [...] gabapentin at . Had a PSG at [facility] -- didn't meet criteria for DAYSI using [...] night A Polysomnogram performed on 07/22/24 at [facility] revealed an AHI of 8.1 (3%) (her [...] adenoma CT MAXILLOFAC/SINUS 06/29/2015 normal EGD W/O [facility] SPEC VARICIES INJ 05/30/2023 Small hiatal hernia, [...] Dr. Cynthia Ramos M.D. S BALLOON,UTERINE ABLATION [address] ACTIVE PROBLEM LIST Patellar Tendinitis Pxe (Pseudoxanthoma Elasticum) Macular Degeneration Legally Blind Hypertension Carotid Atherosclerosis Pad (Peripheral Artery Disease) ([facility]) Aortic Sclerosis Angioid Streaks of Macula Choroidal [...] Maternal Aunt 55 ovarian cancer Heart Son AL Ovarian cancer Maternal Grandmother Glaucoma No Family [...] blind cane IMPRESSION/PLAN: No diagnosis found. Allie Rutledge is a delightful 54 year old female [...] leg movements in her sleep. PSG at [facility] didn't show significant arousals from PLMs but [...] Jiménez then call pt with plan Michelle Becerril APRN.CNP I spent a total of 60+ minutes on the date of the service which included preparing to see the patient, [id number] patient care, completing clinical documentation, obtaining and/or reviewing separately obtained history, performing a medically appropriate examination, counseling and educating the pa tient/family/caregiver, and communicating with other HCPs (not separately reported). documented in this encounterKettering Health [facility]01-23-2025 NoteHNO ID: [id number] Author: MICHELLE BECERRIL APRN.CNP Service: ? Author Type: Nurse Practitioner Type: Progress Notes Filed: 09/25/2024 15:51 Note Text: Addendum: I reviewed her case with Dr Jiménez. We looked at her [facility] sleep study report including hypnogram--Dr Jiménez believes [...] sleep lab but she would require a livery car driver due to her blindness. Michelle Becerril APRN.[facility] New Patient Evaluation PATIENT NAME: Allie Rutledge DATE OF SERVICE: September 24, 2024 CONSULTING PROVIDER: Dr Davis REASON FOR CONSULT: sends the patient for an opinion about DAYSI, blindness. My findings and recommendations will be transmitted electronically via shared medical record to the consulting provider. HPI: Allie Rutledge is a 54 year old female. Sleep-related [...] gabapentin at HS. Had a PSG at [facility] -- didn't meet criteria for DAYSI using [...] night A Polysomnogram performed on 07/22/24 at [facility] revealed an AHI of 8.1 (3%) (her [...] (03/12/17) DELIVERY ONLY 1988 (more content not included)...[facility]01-14-2025 NoteHNO ID: [id number] Author: DESTINEY PENDLETON APRN.TALENT MANAGER Service: ? Author Type: Nurse Practitioner Type: Progress Notes Filed: 09/15/2024 10:57 Note Text: Allie Rutledge is a 54 year old female who [...] L3 SAB0 IAB0 Ectopic0 Multiple0 Live Births0 Statistical Secretary History LMP: Ablation Age at Menarche: Age at First : Age at Menopause: Statistical Secretary History Comments: Sexual Activity: Not Currently; Male [...] Dr. Cynthia Ramos M.D. S BALLOON,UTERINE ABLATION 85696 FAMILY HISTORY Problem Relation Age of Onset Heart Father Age 61 Heart Maternal Grandfather Cancer Paternal Grandmother Breast Cancer Maternal Aunt 55 ovarian cancer Heart Son AL Ovarian cancer Maternal Grandmother Glaucoma No Family [...] ORAL) Take by mouth. (more content not included)...[facility]01-14-2025 History of Present illness Narrative* Destiney Pendleton APRN.TALENT MANAGER - 09/15/2024 10:04 AM EST Allie Rutledge is a 54 year old female who [...] L3 SAB0 IAB0 Ectopic0 Multiple0 Live Births0 Statistical Secretary History LMP: Ablation Age at Menarche: Age at First : Age at Menopause: Statistical Secretary History Comments: Sexual Activity: Not Currently; Male [...] Dr. Cynthia Ramos M.D. S BALLOON,UTERINE ABLATION 62127 FAMILY HISTORY Problem Relation Age of Onset Heart Father Age 61 Heart Maternal Grandfather Cancer Paternal Grandmother Breast Cancer Maternal Aunt 55 ovarian cancer Heart Son AL Ovarian cancer Maternal Grandmother Glaucoma No Family [...] -DC prempro Follow up as needed Destiney Pendleton APRN.CNP Medical Decision Making: Problems: Low: Acute, uncomplicated illness or injury Risk: Moderate: Drug management Medical Decision Making Level: 3 - Low documented in this encounterK[facility]01-07-2025 Telephone encounter Note * Telephone Encounter - Cloverjasmine Nikkie - 09/08/2024 10:03 AM EST Allie is calling Ifeoma Davis MD today with concern regarding Refill Request Patient calling and states that her mail order pharmacy called and told her that she needs refills on just about all of her medications. 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 PHARMACY: [facility]. Patient is asking for Flonase right away and be sent to [place]. Patient has been identified by name and birthdate. Duration of symptoms: N/A Person calling: self Call patient at: on cell [phone] (home) [phone] (cell) Was an appointment scheduled: No Closing statement: Results or non-symptom based questions: Thank you for calling [facility], your call will be returned within the next business day. Nikkie Awad [facility]01-07-2025 Miscellaneous Notes* Telephone Encounter - Nikkie Awad - 09/08/2024 10:03 AM EST Allie is calling Ifeoma Davis MD today with concern regarding Refill Request Patient calling and states that her mail order pharmacy called and told her that she needs refills on just about all of her medications. 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 PHARMACY: [facility]. Patient is asking for Flonase right away and be sent to [place]. Patient has been identified by name and birthdate. Duration of symptoms: N/A Person calling: self Call patient at: on cell [phone] (home) [phone] (cell) Was an appointment scheduled: No Closing statement: Results or non-symptom based questions: Thank you for calling [facility], your call will be returned within the next business day. Nikkie Awad documented in this encounterKet[facility]12-12-2024 Telephone encounter Note * Telephone Encounter - David Anna APRN.CNP - 08/13/2024 7:09 AM EST She has an upcoming appointment with Dr. Davis next week. Have her take a few blood pressures different days after sitting to rest for a good 5 minutes and can bring readings to appointment to reviewwith her. Thank you David Anna APRN.CNP [facility]12-12-2024 Miscellaneous Notes* Telephone Encounter - David Anna APRN.CNP - 08/13/2024 7:09 AM EST She has an upcoming appointment with Dr. Davis next week. Have her take a few blood pressures different days after sitting to rest for a good 5 minutes and can bring readings to appointment to reviewwith her. Thank you David Anna APRN.TALENT MANAGER * Telephone Encounter - Virginia Lorenz MA [...] and by whom? Thank you David Anna APRN.TALENT MANAGER * Telephone Encounter - Emily Prieto LPN - 08/12/2024 11:17 AM EST Patient calling, states she was instructed to call in with 3 separate BP readings today. 9:17am BP 155/82 HR 89 10:25am BP 146/88 HR 91 11:12am BP 158/88 HR 102 documented in this encounterKettering [facility]12-11-2024 Telephone encounter Note * Telephone Encounter - Virginia Lorenz MA - 08/12/2024 2:30 PM EST Spoke with patient regarding below. After reviewing, it looks like patient was called on 08/10 by Patient Outreach and patient outreach MA instructed patient to call in readings. See 08/10/24 patient outreach. Virginia Lorenz MA [facility]12-11-2024 Telephone encounter Note* Telephone Encounter - Tori Morales MA - 08/12/2024 2:09 PM EST Left message for return call. [facility]12-11-2024 Telephone encounter Note* Telephone Encounter - David Anna APRN.CNP - 08/12/2024 1:30 PM EST That is higher then we would like to see. I do not see anything in the chart instructing her to do so. What is going on that she was asked to do this and by whom? Thank you David Anna APRN.DEBORAH [facility]12-11-2024 Telephone encounter Note* Telephone Encounter - Emily Prieto LPN - 08/12/2024 11:17 AM EST Patient calling, states she was instructed to call in with 3 separate BP readings today. 9:17am BP 155/82 HR 89 10:25am BP 146/88 HR 91 11:12am BP 158/88 HR 102 [facility]12-09-2024 NoteHNO ID: [id number] Author: JON ROSS MA Service: ? Author Type: Structural Manager Type: Progress Notes Filed: 08/10/2024 11:30 Note Text: POPULATION HEALTH NAVIGATION OUTREACH Action/FYI Patient is on [facility] CURRENT [facility]OSTER Workbench list for [...] Jon Ross MA August 10, 2024 11:21 [facility]12-09-2024 History of Present illness Narrative* Jon Ross MA - 08/10/2024 11:21 AM EST POPULATION HEALTH NAVIGATION OUTREACH Action/FYI Patient is on [facility] CURRENT [facility] for below and needs appointment [...] 10, 2024 11:21 AM documented in this encounterKettering Health [facility]12-09-2024 NotePatient Outreach (NETNAV) ALLIE RUTLEDGE ([id number]) 1970 F Date Time Provider Department 08/10/24 JON ROSS During your visit today, we recorded the following information about you: Jon Ross MA 08/10/2024 11:30 AM Addendum POPULATION HEALTH NAVIGATION OUTREACH Action/FYI Patient is on [facility] CURRENT [facility]OST[facility] Workbench list for [...] Navigation Outreach [3910] Cmt: [facility] - [place] [facility] Prescriptions as of 08/10/2024 - gabapentin [...] disease) (HCC) [I73.9] 11/15/2015 Aortic sclerosis (HCC) [ZEL4431] 11/15/2015 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 [facility] not at this location anymore. However, [employer] and [facility] can come to patients home and set up machine and instruct patient. Patient notified of the above and will contact insurance to inquire if they are in network. Pt willcall back and let us know where to send the order. Virginia Lorenz MA [facility]12-04-2024 Miscellaneous Notes* Telephone Encounter - Virginia Lorenz MA - 08/05/2024 11:08 AM EST Spoke with sleep/neuro nurse here in [facility]. [facility] not at this location anymore. [...] her she would need to call her [employer] and find out the DME they use and call us back. I said it looked like Dr Davis knew about the [facility] to help her to use [...] a CPAP machine and work with the [facility] clinic to help her to use it. For periodic limb movement disorders we could see if the treatment of sleep apnea would help with that symptom and if it does not we can revisit it in the future. Regards Ifeoma Davis MD * Telephone Encounter - Virginia Lorenz MA - 07/27/2024 1:05 PM EST Printed from [employer] and placed on PCP desk. Virginia Lorenz [...] she had a sleep study done at [facility] and would like the results. Pt reports she cannot access the results. Sarahi Dawkins LPN documented in this encounterKettering Health [facility]12-04-2024 Telephone encounter Note * Telephone Encounter - Spring Peñaloza RN - 08/05/2024 10:32 AM EST Pt called in and reports she wasn't able to get in to sleep medicine until 10/07/24. Pt is wanting toget CPAP machine before then. I told her she would need to call her [employer] company and find out the DME they use and call us back. I said it looked like Dr Davis knew about the [facility] to help her to use it as she is legally blind, so she would need to set that up. Pt states she is always so tired, and she doesn't want to wait until October to get it. [facility]11-27-2024 Telephone encounter Note* Telephone Encounter - Sharifa Landa - 07/29/2024 11:34 AM EST 1st attempt LVM to schedule with sleep medicine [facility]11-27-2024 Telephone encounter Note* Telephone Encounter - Virginia Lorenz MA - 07/29/2024 11:09 AM EST Allie notified and verbalized understanding. PSS, please contact patient to schedule with Sleep Medicine. Virginia Lorenz MA [facility]11-26-2024 Telephone encounter Note* Telephone Encounter - Ifeoma Davis MD - 07/28/2024 4:41 PM EST I understand her hesitancy. Because of her limitations I would like her to see sleep medicine as they might consider other methodologies like the inspire or dental appliances. Regards, Ifeoma Davis MD [facility]11-26-2024 Telephone encounter Note* Telephone Encounter - Virginia Lorenz MA - 07/28/2024 9:37 AM EST Patient notified and verbalized understanding. Patient asking if PCP feels that she would be able to do this herself with her vision. Putting the mask on, etc. Virginia Lorenz MA [facility]11-25-2024 Telephone encounter Note* Telephone Encounter - Ifeoma Davis MD - 07/27/2024 6:32 PM EST Please let patient know that she mild sleep apnea and she also likely has periodic limb movement disorder. The ideal treatment would be a CPAP machine. If she is willing to try it we will send her a CPAP machine and work with the [facility] to help her to use it. For periodic limb movement disorders we could see if the treatment of sleep apnea would help with that symptom and if it does not we can revisit it in the future. Regards, Ifeoma Davis MD [facility]11-25-2024 Telephone encounter Note* Telephone Encounter - Virginia Lorenz MA - 07/27/2024 1:05 PM EST Printed from [employer] and placed on PCP desk. Virginia Lorenz MA [facility]11-25-2024 Telephone encounter Note* Telephone Encounter - David Anna APRN.DEBORAH - 07/27/2024 12:25 PM EST We don't have the results either. Please get results then place on PCP desk to review. Thank you David Anna APRN.TALENT MANAGER [facility]11-25-2024 Telephone encounter Note* Telephone Encounter - Sarahi Dawkins LPN - 07/27/2024 10:40 AM EST Pt calls to report she had a sleep study done at [facility] and would like the results. Pt reports she cannot access the results. Sarahi Dawkins LPN [facility]11-08-2024 Telephone encounter Note* Telephone Encounter - Angelica Arreola RN - 07/10/2024 9:15 AM EST [facility] Central Scheduling calling and states they have received a non-signed sleep study order for mutual patient. Requesting a signed order. Signed order faxed to [phone] as requested. Angelica Arreola RN [facility]11-08-2024 Miscellaneous Notes* Telephone Encounter - Angelica Arreola RN - 07/10/2024 9:15 AM EST [facility] Central Scheduling calling and states they have received a non-signed sleep study order for mutual patient. Requesting a signed order. Signed order faxed to [phone] as requested. Angelica Arreola RN documented in this encounterKettering [facility]11-07-2024 Telephone encounter Note * Telephone Encounter - Janet Meza LPN - 07/09/2024 2:11 PM EST Called and spoke to patient would prefer [facility] d/t legally blind. Faxed order and facesheet to [facility] sleep study Janet Meza LPN July 09, 2024 2:18 PM [facility]11-07-2024 Miscellaneous Notes* Telephone Encounter - Janet Meza LPN - 07/09/2024 2:11 PM EST Called and spoke to patient would prefer [facility] d/t legally blind. Faxed order and facesheet to [facility] sleep study Janet Meza LPN July 09, 2024 2:18 PM * Telephone Encounter - Ifeoma Davis MD - 07/09/2024 1:27 PM EST Staff, Please co ordinate with her to get her sleep study done in the sleep lab. [place] may be easier forher. Regards, Ifeoma Davis [...] calling: self Call patient at: at home [phone] (home) [phone] (cell) Was an appointment scheduled: No Closing statement: Results or non-symptom based questions: Thank you for calling [facility], your call will be returned within the next business day. Myra Mathur documented in this encounterKettering [facility]11-07-2024 Telephone encounter Note * Telephone Encounter - Ifeoma Davis MD - 07/09/2024 1:27 PM EST Staff, Please co ordinate with her to get her sleep study done in the sleep lab. [place] may be easier forher. Regards, Ifeoma Davis MD [facility]11-07-2024 Telephone encounter Note* Telephone Encounter - Judith Quach LPN - 07/09/2024 7:30 AM EST Patient given results and verbalized understanding of instructions given. Judith Quach LPN [facility]11-07-2024 Miscellaneous Notes* Telephone Encounter - Judith Quach LPN - 07/09/2024 7:30 AM EST Patient given results and verbalized understanding of instructions given. Judith Quach LPN * Telephone Encounter - Adriana Vidal APRN.CNP - 07/09/2024 7:16 AM EST Please notify that covid/flu/rsv testing negative. Continue with plan of care as discussed during visit. documented in this encounterKettering [facility]11-07-2024 Telephone encounter Note * Telephone Encounter - Adriana Vidal APRN.CNP - 07/09/2024 7:16 AM EST Please notify that covid/flu/rsv testing negative. Continue with plan of care as discussed during visit. [facility] Work Phone: 1(490) 658-442311-06-2024 NoteHNO ID: [id number] Author: LOWELL KELLY APRN.TALENT MANAGER Service: ? Author Type: Nurse Practitioner Type: Progress Notes Filed: 07/08/2024 17:47 Note Text: CC: Patient presents with: Headache: [place], bodyaches, fatigue x 3 days HPI: Allie Rutledge is a 54 year old female who [...] Dr. Cynthia Ramos M.D. S BALLOON,UTERINE ABLATION [address]658 ALLERGIES Ultram [Tramadol Hcl], Darvocet A500 [Propoxyphene [...] (ACULAR) 0.5 % ophthal (more content not included)...[facility]11-06-2024 History of Present illness Narrative* Lowell Kelly APRN.TALENT MANAGER - 07/08/2024 5:44 PM EST CC: Patient presents with: Headache: [place], bodyaches, fatigue x 3 days HPI: Allie Rutledge is a 54 year old female who [...] Dr. Cynthia Ramos M.D. S BALLOON,UTERINE ABLATION 38848 ALLERGIES Ultram [Tramadol Hcl], Darvocet A500 [Propoxyphene [...] Maternal Aunt 55 ovarian cancer Heart Son AL Ovarian cancer Maternal Grandmother Glaucoma No Family [...] Patient agreeable to treatment plan. Lowell Kelly APRN.TALENT MANAGER documented in this encounterKettering [facility]11-06-2024 Telephone encounter Note * Telephone Encounter - Angelica Arreola RN - 07/08/2024 11:07 AM EST Patient returned call. Patient states yes, she is willing to do an in house test. States she is willing to do whatever Dr. Davis thinks is best. Please call patient with response or any new test orders. Angelica Arreola RN [facility]11-06-2024 Telephone encounter Note* Telephone Encounter - Clint Brennan RN - 07/08/2024 9:52 AM EST Phoned pt. No answer. No voicemail. [facility]11-05-2024 Telephone encounter Note* Telephone Encounter - Ifeoma Davis MD - 07/07/2024 5:13 PM EST Would she be willing for an inhouse test? Due to her blindness? Regards, Ifeoma Davis MD [facility]11-05-2024 Telephone encounter Note* Telephone Encounter [...] calling: self Call patient at: at home [phone] (home) [phone] (cell) Was an appointment scheduled: No Closing statement: Results or non-symptom based questions: Thank you for calling [facility], your call will be returned within the next business day. Myra Matuhr [facility]11-05-2024 Telephone encounter Note* Telephone Encounter [...] Myra Mathur July 07, 2024 9:49 AM [facility]11-05-2024 Miscellaneous Notes* Telephone Encounter - Myra Isidro [...] daily at bedtime for 181 days. Myra Deal [facility] July 07, 2024 9:49 AM documented in this encounterKettering [facility]10-28-2024 Telephone encounter Note * Telephone Encounter - [...] Dawkins LPN June 29, 2024 10:14 AM [facility]10-28-2024 Miscellaneous Notes* Telephone Encounter - Sarahi Dawkins [...] 29, 2024 10:14 AM documented in this encounterKettering Health [facility]10-14-2024 NoteHNO ID: [id number] Author: CHANA BRIDGES MA Service: ? Author Type: Structural Manager Type: Progress Notes Filed: 06/15/2024 16:13 Note [...] Chana Bridges MA June 15, 2024 3:48 [facility]10-14-2024 History of Present illness Narrative* Chana Bridges MA - 06/15/2024 3:47 PM EDT POPULATION HEALTH NAVIGATION OUTREACH Action/FYI Med Adherence Atorvastatin: Last fill 03/04/24; 90 days - 0 refills Needs new Rx Unable to reach via phone (did not ring); MyChart message sent Reason for Outreach Med Adherence Patient Contacted: Unable or unnecessary to reach patient: Unable to leave message [employer] message sent Navigation Signature: Chana Bridges MA June 15, 2024 3:48 PM documented in this encounterKettering Health [facility]10-11-2024 History of Present illness Narrative* Jon Ross MA - 06/12/2024 9:43 AM EDT POPULATION HEALTH NAVIGATION OUTREACH Action/FYI Patient is on [facility] CURRENT [facility]OST[facility] Workbench list for below and needs appointment to address: Depression Screening Anxiety Screening DTaP,Tdap,Td Vaccine(1 - Tdap) Hepatitis B Vaccine(1 of 3 - 19+ 3-dose series) Shingrix Vaccine(1 of 2) Influenza Vaccine(1) Covid-19 Vaccine(2023- season) Mammogram Screening Hemoglobin A1C (%) Date Value 05/03/2022 5.3 Patient due for: Breast Cancer Screening Flu Vaccine MyChart Active: Yes Spoke to patient. Scheduled mammogram 06-18-24 in [place] Declined influenza Updated upcoming 2024 OV notes Please address due care gaps and HCC gap closure Reason for Outreach Care Gap/HCC or Scheduling Wellness Visits Care Gaps due: Breast Cancer Screening Flu Vaccine Patient Contacted: Spoke to patient/parent/or legal guardian Patient identified by name and : Yes Care Gap/HCC/Scheduling Wellness actions taken: Patient scheduled/pended orders: Breast Cancer Screening 06/18/2024 in [facility] with [facility] - Encounter for screening mammogram for malignant neoplasm of breast [Z12.31] 08/18/2024 in [facility] with CYNTHIA RAMOS 6 months VaTa and mac OCT [facility] with IFEOMA DAVIS - 6 mo follow up; routine, Please address due care gap and HCC gap closure HCC related Navigation Signature: Jon Ross MA June 12, 2024 9:43 AM documented in this encounterK[facility]09-27-2024 History of Present illness Narrative* Aldair Population Health NavigatorEileen - 05/29/2024 2:06 PM EDT POPULATION HEALTH [...] responses: Patient will notify Pharmacy Navigation Signature: Eileen Quinteros Population Health Navigator May 29, 2024 2:07 PM documented in this encounterKettering [facility]09-12-2024 Telephone encounter Note * Telephone Encounter - [...] and have staff phone her to schedule. [phone] [facility]09-12-2024 Miscellaneous Notes* Telephone Encounter - Clint Brennan [...] and have staff phone her to schedule. [phone] documented in this encounterKettering Health [facility]09-09-2024 Telephone encounter Note * Telephone Encounter - Khalida Agarwal - 05/11/2024 1:05 PM EDT Letter placed in mail to be mailed out to patient. Khalida Agarwal May 11, 2024 1:05 PM [facility]09-09-2024 Miscellaneous Notes* Telephone Encounter - Khalida Agarwal - 05/11/2024 [...] 06, 2024 3:18 PM documented in this encounterKettering Health [facility]09-05-2024 Telephone encounter Note * Telephone Encounter - Cynthia Ramos MD - 05/07/2024 4:30 PM EDT Condition is permanent. Letter updated and forwarded to Ayanna. Cynthia Ramos MD 05/07/2024 4:30 PM [facility]09-04-2024 Telephone encounter Note* Telephone Encounter - Barbie Alicea - 05/06/2024 3:16 PM EDT Patient states Certificate of Blindness letter dated 04/13 requires a duration. Patient would like letter mailed once completed. Barbie Alicea May 06, 2024 3:18 PM [facility]09-03-2024 Telephone encounter Note* Telephone Encounter - Cynthia Ramos MD - 05/05/2024 8:58 AM EDT Letter created. Please mail/fax. Cynthia Ramos MD 05/05/2024 8:58 AM [facility]09-03-2024 Miscellaneous Notes* Telephone Encounter - Cynthia Ramos [...] fax to [facility] at [phone]. Please advise Barbie Alicea May 01, 2024 11:58 AM documented in this encounterKettering [facility]08-30-2024 Telephone encounter Note * Telephone Encounter - Barbie Alicea - 05/01/2024 11:56 AM EDT Patient would like a letter stating dx, and what visual acuity is. Letter is needed for patient to get extra assistance with decreased vision. Once completed fax to [facility] at [phone]. Please advise Barbie Alicea May 01, 2024 11:58 AM [facility]08-26-2024 Telephone encounter Note* Telephone Encounter - Modesta [...] needed. Modesta Gallardo RN 2024 5:26 PM [facility]08-26-2024 Miscellaneous Notes* Telephone Encounter - Modesta Gallardo [...] RN 2024 5:26 PM documented in this encounterKettering Health [facility]08-13-2024 Telephone encounter Note * Telephone Encounter - Emy Hanks - 04/14/2024 1:41 PM EDT Certificate scanned and mailed to patient. [facility]08-13-2024 Miscellaneous Notes* Telephone Encounter - Emy Hanks [...] 13, 2024 1:44 PM documented in this encounterKettering Health [facility]08-13-2024 Telephone encounter Note * Telephone Encounter - Cynthia Ramos MD - 04/14/2024 12:11 PM EDT Done. Cynthia Ramos MD 04/14/2024 12:11 PM [facility]08-12-2024 Telephone encounter Note* Telephone Encounter - Khalida Agarwal - 04/13/2024 1:42 PM EDT Patient states she needs a new certificate of blindness for a handicap placard. Khalida Agarwal April 13, 2024 1:44 PM [facility]08-10-2024 History of Present illness Narrative* Britta Gunn PA - 04/11/2024 12:02 PM EDT This note was created using [employer]. Subjective Allie Rutledge is a 53 year old female. HPI [...] Ramos M.D. No date: S BALLOON,UTERINE ABLATION [address]697 ALLERGIES Ultram [Tramadol Hcl], Darvocet A500 [Propoxyphene [...] Maternal Aunt 55 ovarian cancer Heart Son AL Ovarian cancer Maternal Grandmother Glaucoma No Family [...] ER evaluation. KENA Medrano documented in this encounterKettering [facility]08-01-2024 Telephone encounter Note * Telephone Encounter - Lina Murillo LPN - 04/02/2024 8:17 AM EDT Patient notified of below results. Lina Murillo LPN [facility]08-01-2024 Miscellaneous Notes* Telephone Encounter - Lina Murillo LPN - 04/02/2024 8:17 AM EDT Patient notified of below results. Lina Murillo LPN * Telephone Encounter - Lina Murillo LPN - 04/02/2024 8:15 AM EDT ----- Message from Ifeoma Davis MD sent at 04/01/2024 7:07 PM EDT ----- You are negative for hep C and HIV documented in this encounterKettering [facility]08-01-2024 Telephone encounter Note * Telephone Encounter - Lina Murillo LPN - 04/02/2024 8:15 AM EDT ----- Message from Ifeoma Davis MD sent at 04/01/2024 7:07 PM EDT ----- You are negative for hep C and HIV [facility]-30-2024 History of Present illness Narrative* Ifeoma Davis MD - 03/31/2024 1:00 PM EDT CC: Patient presents with: Physical HPI Allie Rutledge is a 53 year old female who presents today for 6-month follow-up. 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 Dr. 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 States she has not had a bleed in her eye at a long time, but at the same time she states she wouldn't see it at this point. Slowly progressive loss of peripheral vision. Patient also reports that she has issueswith calcified joints/arthritis. She has moved back to [place], so she can use the [employer] for going places, [employer]. She is engaged in a lot of activities, and is giving back to the community as much as she can in every way she can. She has a son in [place], and a brother near by. Her eyes [...] extremely active in the community. Takes the [employer] bus to [employer] every Saturday, [...] available full-time. Needs include home health aid, longterm if applicable - says her boyfriend could [...] Had worked with an OT previously through [employer] in [place] previously who assisted with various techniques and [...] adenoma CT MAXILLOFAC/SINUS 06/29/2015 [facility] 05/30/2023 Small hiatal [...] Dr. Cynthia Ramos M.D. S BALLOON,UTERINE ABLATION [address]12 ALLERGIES Ultram [Tramadol Hcl], Darvocet A500 [Propoxyphene [...] Maternal Aunt 55 ovarian cancer Heart Son AL Ovarian cancer Maternal Grandmother Glaucoma No Family [...] exercise Ifeoma Davis MD documented in this encounterKettering [facility]06-18-2024 History of Present illness Narrative* Cynthia Ramos MD - 02/18/2024 1:35 PM EDT Tmax 28 , 28 03/10/2019 ; Pachy 543 , 540 Family history Gonioscopy 03/10/2019 PTM OU with 2+ TMP Lasers and surgeries OD multiple injections; SLT 180 (inferior) 01/15/2020 (IOP 28--> 21); SLT superior 180 05/09/2021 (IOP 26-->19); TBX 10/26/2021 (IOP 24); 06/25/2022 PEIOL/suture of iridectomy (Dr. 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 The signs of infection and the importance of same-day medical attention if these signs develop were emphasized. 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 I have seen and examined this patient. I have discussed the case and the management of this patient's care with the Resident/Fellow/Superintendent Power, if applicable. I also have reviewed and agree with the assessment and plan as stated above and agree with all of its relevant components. Cynthia Ramos MD February 18, 2024 1:35 PM documented in this encounterK[facility]06-18-2024 NoteDate of Procedure 02/18/2024. Bench Mover Information Environmental Health Physician: tri. Start time: 12:53 PM. Stop time: 1:04 PM. Notes -- OCT macula 02/18/2024 OD atrophy; OS scar/atrophy, full thickness holeZEISS 01-01-2024 Telephone encounter Note* Telephone Encounter - Calli Gerber, RAYMUNDO - 01/01/2024 1:16 PM EDT Prempro is prescribed by gynecology Calli Gerber APRN.CNP [facility]05-01-2024 Miscellaneous Notes* Telephone Encounter - Calli Gerber APRN.CNP - 01/01/2024 1:16 PM EDT Prempro is prescribed by gynecology Calli Gerber APRN.CNP * Telephone Encounter - Allie Mcknight LPN [...] you. Allie Mcknight LPN. documented in this encounterKettering [facility]05-01-2024 Telephone encounter Note * Telephone Encounter - [...] Please advise. Thank you. Allie Mcknight LPN. [facility]04-26-2024 Telephone encounter Note* Telephone Encounter - Tori Morales MA - 12/27/2023 9:04 AM EDT Patient notified, [facility]04-26-2024 Miscellaneous Notes* Telephone Encounter - Tori Morales MA - 12/27/2023 9:04 AM EDT Patient notified, * Telephone Encounter - David Anna APRN.CNP - 12/27/2023 7:29 AM EDT Gabapentin ordered as requested. Thank you David Anna APRN.CNP * Telephone Encounter - Allie Mcknight LPN - 12/26/2023 2:02 PM EDT Patient calling to check status of request for the Gabapentin rx. She is going to [facility] via the bus and was hoping to car pick up driver rx while she was out. Please advise * Telephone Encounter - Allie Mcknight LPN - 12/25/2023 2:00 PM EDT Patient calling she had MRI of her right shoulder done at [facility]. She does not see Dr Brush until December 30 for possible injection or what treatment he plans to do. Patient was asking for a Gabapentin rx. She had taken it in the past. Patient said she did not have a tear, but not sure how to explain the results. Patient is going to ask [facility] to fax report, She is legally blind so she can not drive, to come to appt with provider right now. Patient [facility] her [facility], can get someone to car pick up driver rx for her. Please advise documented in this encounterK[facility]04-26-2024 Telephone encounter Note * Telephone Encounter - David Anna APRN.CNP - 12/27/2023 7:29 AM EDT Gabapentin ordered as requested. Thank you David Anna APRN.CNP [facility]04-25-2024 Telephone encounter Note* Telephone Encounter - Allie Mcknight LPN - 12/26/2023 2:02 PM EDT Patient calling to check status of request for the Gabapentin rx. She is going to [place] via the bus and was hoping to car pick up driver rx while she was out. Please advise [facility]04-24-2024 Telephone encounter Note* Telephone Encounter - Allie Mcknight LPN - 12/25/2023 2:00 PM EDT Patient calling she had MRI of her right shoulder done at [facility]. She does not see Dr Brush until Irais 30 for possible injection or what treatment he plans to do. Patient was asking for a Gabapentin rx. She had taken it in the past. Patient said she did not have a tear, but not sure how to explain the results. Patient is going to ask [facility] to fax report, She is legally blind so she can not drive, to come to appt with provider right now. Patient uses [facility] for her pharmacy, can get someone to car pick up driver rx for her. Please advise [facility]04-23-2024 History of Present illness Narrative* Destiney Pendleton APRN.TALENT MANAGER - 12/24/2023 12:45 PM EDT Allie is a 53 year old who presents for an annual gynecologic exam without complaints. Postmenopausal: ablation 2011- no bleeding HRT use: Yes, prempro Last Pap: 07/03/2019 normal HPV: 07/01/2019 negative History of abnormal pap: Yes Last mammogram: 2023 normal History of abnormal mammogram: No Sexually active: No OB History T0 L3 SAB0 IAB0 Ectopic0 Multiple0 Live Births0 Statistical Secretary History LMP: Ablation Age at Menarche: Age at First : Age at Menopause: Statistical Secretary History Comments: Sexual Activity: Not Currently; Male [...] Dr. Cynthia Ramos M.D. S BALLOON,[place]ERINE ABLATION [address] FAMILY HISTORY Problem Relation Age of Onset Heart Father Age 61 Heart Maternal Grandfather Cancer Paternal Grandmother Breast Cancer Maternal Aunt 55 ovarian cancer Heart Son AL Ovarian cancer Maternal Grandmother Glaucoma No Family [...] external genitalia normal, normal Bartholin's glands, urethra, [place]'s glands, no vulvar lesions, no cervical lesions, [...] one year or sooner as needed Destiney Pendleton APRN.TALENT MANAGER documented in this encounterKet[facility]03-18-2024 History of Present illness Narrative* Adriana Vidal APRN.CNP - 11/18/2023 10:45 AM EDT Subjective HPI HPI Allie Rutledge is a 53 year old female who [...] Dr. Cynthia Ramos M.D. S BALLOON,[place]ERINE ABLATION [address] ALLERGIES Ultram [Tramadol Hcl], Darvocet A500 [Propoxyphene [...] Maternal Aunt 55 ovarian cancer Heart Son AL Ovarian cancer Maternal Grandmother Glaucoma No Family [...] - PREDNISONE 10 MG TABLET Adriana Vidal APRN.TALENT MANAGER documented in this encounterKet[facility]03-13-2024 Miscellaneous Notes* Telephone Encounter - Angelica Arreola [...] you. Angelica Arreola RN. documented in this encounterKettering Health [facility]02-23-2024 History of Present illness Narrative* Alessandra Lora [...] Care Gap or Scheduling/Wellness visits Payer: Payor: COUNT INCLUDES THE [facility] NI AND [employer] CV / Plan: COUNT INCLUDES THE [facility] MEDICARE ADVANTAGE HMO / Product Type: HMO [...] 25, 2023 9:44 AM documented in this encounterKettering Health [facility]02-09-2024 Miscellaneous Notes* Letter - Coordinator, Mammography - 10/11/2023 1:18 PM EST October 14, 2023 PID: [id number] Allie Rutledge [address] [place] [address] Dear Ms. Rutledge, We are pleased to inform you that [...] report will be kept on file at [facility] as part of your permanent medical record and are available for your continuing care. Thank you for allowing us to help in meeting your health care needs. Sincerely, Dr. Muñiz Interpreting Radiologist [facility] (Normal over 40) documented in this encounterKet[facility]02-08-2024 History of Present illness Narrative* Carmen Sol, Chachao Tech - 10/10/2023 12:50 PM EST Radiology Service Progress Note PATIENT NAME: Allie Rutledge DATE OF SERVICE: October 10, 2023 TIME: [...] PATIENT PRESENTS WITH AN IMPLANTABLE OR ATTACHED ASSESSMENT MANAGER: No RADIOLOGY DEPARTMENT: Mammography PERIPHERAL IV DATA: Not applicable SIGNED BY: Chacha Aliceao Jared October 10, 2023 1:08 PM documented in this encounterKettering [facility]02-06-2024 Miscellaneous Notes* Telephone Encounter - Dara Valdez RN - 10/08/2023 10:43 AM EST [facility] [employer]OTOfarmworker [employer] at [facility] calls to report that completed health risk assessment care plan update was done and can be reviewed in availability portal. Cande states that provider can attend care team meeting by calling Cande. Dara Valdez RN documented in this encounterKettering Health [facility]02-02-2024 History of Present illness Narrative* Mary Salinas [...] Care Gap or Scheduling/Wellness visits Payer: Payor: COUNT INCLUDES THE [facility] NI AND [employer] CV / Plan: COUNT INCLUDES THE [facility] MEDICARE ADVANTAGE HMO / Product Type: HMO [...] Screening due on 09/27/2023 Navigation Signature: Mary Salinas, Population Health Navigator October 04, 2023 9:40 AM documented in this encounterKet[facility]12-19-2023 History of Present illness Narrative* Cynthia Ramos MD - 08/20/2023 6:59 PM EST Tmax 28 , 28 03/10/2019 ; Pachy 543 , 540 Family history Gonioscopy 03/10/2019 PTM OU with 2+ TMP Lasers and surgeries OD multiple injections; SLT 180 (inferior) 01/15/2020 (IOP 28--> 21); SLT superior 180 05/09/2021 (IOP 26-->19); TBX 10/26/2021 (IOP 24); 06/25/2022 PEIOL/suture of iridectomy (Dr. Johnson) OS multiple injections; SLT 180 (inferior angle) [...] PEIOL and reduction of iridectomy by Dr. Johnson (for dysphotopsia) Vision limited by macular atrophy [...] elasticum Comment: Central scarring, central scotoma on andersen; previous injections; limits central vision - as above; retinal atrophy possibly worse and fluid on OCT OS Plan: Retina second opinion (Z96.1) Pseudophakia of both eyes Comment: Clear, as above Plan: As above [facility] Referral - progressive pseudoxanthoma elasticum macular atrophy (white cane training, occupational therapy) SP 6 months VaTa and mac OCT I have confirmed and edited as necessary the relevant ophthalmic history, ROS, and the neuro exam findings as obtained by others. I have seen and examined this patient. I have discussed the case and the management of this patient's care with the Resident/Fellow/Superintendent Power, if applicable. I also have reviewed and agree with the assessment and plan as stated above and agree with all of its relevant components. Cynthia Ramos MD August 16, 2023 7:06 PM documented in this encounterKet[facility]11-21-2023 Miscellaneous Notes* Telephone Encounter - Celeste Haywood [...] notify patient. Amy Adams documented in this encounterKettering Health [facility]09-28-2023 Nurse Note* Mel Garcia RN - 05/30/2023 2:[address] Connelly at bedside to discuss procedure/findings with patient and her friend. [facility]-28-[facility]23 Nurse Note* Mel Garcia RN - 05/30/2023 2:[address] Connelly at bedside to discuss procedure/findings with patient and her friend. documented in this encounterKettering Health [facility]09-28-2023 Anesthesiology Preoperative evaluation and management note* Anesthesia PreOp - Andry Connelly MD - 05/30/2023 1:00 PM EDT HISTORY AND PHYSICAL Allie Rutledge, 53 year old female Current history and [...] Moderate Additional Comments: None Andry Connelly MD [facility] Work Phone: 1(950) 417-818309-28-2023 Miscellaneous Notes* Anesthesia PreOp - Andry Connelly MD - 05/30/2023 1:00 PM EDT HISTORY AND PHYSICAL Allie Rutledge, 53 year old female Current history and [...] None Andry Connelly MD documented in this encounterKettering [facility]09-19-2023 History of Present illness Narrative* Virginia Avalos PA-C - 05/21/2023 11:13 AM EDT CC: Patient presents with: F/U 6 months HPI Allie Rutledge is a 53 year old female who presents today for 6-month follow-up, and to discuss initiating home health services PMH significant for PXE (pseudoxanthoma elasticum), 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 Dr. 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 States she has not had a bleed in her eye at a long time, but at the same time she states she wouldn't see it at this point. Slowly progressive loss of peripheral vision. Patient also reports that she has issueswith calcified joints/arthritis. Just sold her home here in [place] and moved to [place] with her boyfriend, and her boyfriend doesn't feel like she's entirely safe in her day to day activities. Patient called [facility] and they advised that she have a home health order placed and faxed over to them-reports she's not sure all that she can be helped with. She is extremely active in the community. Takes the [employer] bus to [employer] every Saturday, [...] available full-time. Needs include home health aid, longterm if applicable - says her boyfriend could [...] Had worked with an OT previously through [facility] in [place] previously who assisted with various techniques and [...] Dr. Cynthia Ramos M.D. S BALLOON,UTERINE ABLATION [address] ALLERGIES Ultram [Tramadol Hcl], Darvocet A500 [Propoxyphene [...] Maternal Aunt 55 ovarian cancer Heart Son AL Ovarian cancer Maternal Grandmother Glaucoma No Family [...] once patient finds out from insurance - [facility] 2. PXE (pseudoxanthoma elasticum) - ICD9: 757.39, ICD10: Q82.8 See above - [facility] 3. Trigger finger, unspecified finger, unspecified laterality - ICD9: 727.03, ICD10: M65.30 Refills provided on meloxicam per pt request - [facility] 4. Mixed hyperlipidemia - ICD9: [...] plan. Virginia Avalos PA-C documented in this encounterKettering [facility]09-06-2023 Miscellaneous Notes* Telephone Encounter - Sita Mauricio LPN - 05/08/2023 9:25 AM EDT PATIENT NOTIFIED OF SAME. * Telephone Encounter - Ariadne Zaidi APRN.CNP - 05/07/2023 4:28 PM EDT Printed, will sign, please call patient to car pick up driver. Thanks! * Telephone Encounter - Lina Murillo LPN - 05/07/2023 1:16 PM EDT Patient is needing to renew her handicapped placard, it expires this month. Please call when approved and ready for pickup. Lina Murillo LPN documented in this encounterKettering Health [facility]09-01-2023 Miscellaneous Notes* Telephone Encounter - Fern Noonan [...] notify patient. Marnie Adams documented in this encounterKettering Health [facility]08-29-2023 Instructions* Patient Instructions* Cande Pozo PA-C - [...] If you do not have a responsible livery car driver (family member or friend) withyou to take you home, your exam cannot be done with sedation and will be cancelled. Please bring a list of all of your current medications, including any Cvpt-lnf-Uvbwztl medications with you. Medications If you take [...] your exam. 2 08/2019 documented in this encounterKettering Health [facility]08-29-2023 History of Present illness Narrative* Cande Pozo PA-C - 04/30/2023 12:59 PM EDT CHIEF COMPLAINT: Patient presents with: GERD: Peptic ulcer at age 14. She is not sure if she has blood in her stool. Taking Tums more often. Thinks most symptoms are due to PXE HPI: Allie Rutledge is a 53 year old female with [...] pains. Denies dysphagia, emesis, weight loss. Colon 2018 Impression: - Preparation of the colon was [...] Abs Lymph 1.00 - 4.00 k/uL 1.42 Broome% % 9.8 Abs Broome <0.87 k/uL 0.58 Eosin% % 3.1 Abs [...] revision (bleb reduction) x 11/15/2022- Dr. Cynthia Ramos, MManda. [place] [id number] Allergies: ALLERGIES Allergen Reactions Ultram [Tramadol Hc* [...] Maternal Aunt 55 ovarian cancer Heart Son AL Ovarian cancer Maternal Grandmother Glaucoma No Family [...] which included preparing to see the patient, [id number] patient care, completing clinical documentation, obtaining and/or reviewing separately obtained history, performing a medically appropriate examination, counseling and educating the pat ient/family/caregiver, ordering medications, tests, or procedures, communicating with other HCPs (not separately reported), independently interpreting results (not separately reported), communicatingresults to the patient/family/caregiver, and care coordination (not separately reported). Cande Pozo PA-C April 30, 2023 1:23 PM documented in this encounterKettering Health [facility]burg08-24-2023 History of Present illness Narrative* Massimo Hicks MD - 04/25/2023 2:12 PM EDT Massimo Hicks MD Department of Orthopaedics Orthopaedics [address] [facility] [address] Dept: [phone] Dept April 25, 2023 CHIEF COMPLAINT: Established [...] back after nerve testing. OBJECTIVE: Ms. Allie Rutledge is a pleasant 53 year old in [...] Dr. Cynthia Ramos M.D. [place] [address] Medications: Current Outpatient Medications Medication Sig keTORolac [...] (see HPI) Psych (no depression, anxiety) Massimo Hicks MD documented in this encounterKettering Health [facility]08-14-2023 Miscellaneous Notes* Telephone Encounter - Allie Mcknight [...] cost. Starla Mckeon LPN documented in this encounterKettering Health [facility]06-20-2023 History of Present illness Narrative* Cynthia Ramos MD - 02/19/2023 3:06 PM EDT Tmax 28 , 28 03/10/2019 ; Pachy 543 , 540 Family history Gonioscopy 03/10/2019 PTM OU with 2+ TMP Lasers and surgeries OD multiple injections; SLT 180 (inferior) 01/15/2020 (IOP 28--> 21); SLT superior 180 05/09/2021 (IOP 26-->19); TBX 10/26/2021 (IOP 24); 06/25/2022 PEIOL/suture of iridectomy (Dr. Johnson) OS multiple injections; SLT 180 (inferior angle) [...] elasticum Comment: Central scarring, central scotoma on andersen; previous injections; limits central vision Plan: Monitor [...] management of this patient's care with the Resident/Fellow/Superintendent Power, if applicable. I also have reviewed and agree with the assessment and plan as stated above and agree with all of its relevant components. Cynthia Ramos MD February 19, 2023 3:11 PM documented in this encounterKettering Health [facility]05-30-2023 Miscellaneous Notes* Telephone Encounter - Celeste Cardona [...] you. Celeste Cardona LPN documented in this encounterKettering Health [facility]burg05-02-2023 Discharge summary Author Sharifa Morrissey [facility] January 01, 2023 12:18pm Note Date/Time January 01, 2023 12:18p [facility] Occup[facility] [facility] [place] [address] / REHABILITATION SERVICES DISCHARGE SUMMARY MR#: [id number] Acct: [id number] Name: ALLIE RUTLEDGE Rep #: [id number] : 1970 52 From: Sharifa CARBAJAL/Yonathan, CHT Referring : Status: REG RCR Eval Date: Discharge Date: It has been my pleasure to treat ALLIE RUTLEDGE under orders from TAINA PATINO, for the diagnosis of right RF trigger finger and left MF trigger finger for a total of 4 visit(s). Please see the following information for a summary of their discharge status. % Improvement: 80 Objective/Function: right steam box tender strength 50#. left steam box tender strength 40# (US completed previous to steam box tender). right RF PIP -5/45. left MF PIP -15/50 Patient Goals: Regain Mobility, Regain Strength, Decrease Pain, Use Hand/Wrist/Arm Normally Again Goal:Daily scar massage when approriate: Yes Goal:ROM equal to unaffected hand: Yes Goal:Factory Expert/Pinch strength at least 75% of unaffected hand: [...] please fell free to call me at [phone]. Thank you for the referral of this patient. Sincerely, Sharifa Morrissey OTR/Yonathan, CHT <Electronically signed by Sharifa CARBAJAL/Yonathan CHT> 01/01/23 1218 CC: Dr. Ifeoma Davis MD; TAINA PATINO ~ MK Signed [facility] Work Phone: [phone]) 410-995904-12-2023 Miscellaneous Notes* Telephone Encounter - Celeste Cardona LPN - 12/12/2022 1:19 PM EDT Patient has [...] RX INSTRUCTIONS: Patient needs 14 days to [facility] today - she is going today to [facility] and since she cannot drive due to legally blind, please send JUVE so she can car pick up driver while at [facility] this morning. Please send 90 days to [facility] Rx Mail order. Please call patient once 14 days is sent to [facility]. Patient aware RX will be sent to pharmacy. No need to notify patient. Patient aware RX escripted to mail away pharmacy. No need to notify patient. Melly Prado [facility]' documented in this encounterKettering Health [facility]04-04-2023 Instructions* Patient Instructions* Cynthia Ramos MD - 12/04/2022 11:15 AM EDT Continue Prednisolone (pink/white) 1 drop LEFT eye 4 x daily Continue Ketorolac (saunders) 1 drop LEFT eye 4 x daily OK to use refresh or gel drop documented in this encounterKettering Health Mi[facility]burg04-04-2023 History of Present illness Narrative* Cynthia Ramos [...] management of this patient's care with the Resident/Fellow/Superintendent Power, if applicable. I also have reviewed and agree with the assessment and plan as stated above and agree with all of its relevant components. Cynthia Ramos MD December 04, 2022 11:14 AM documented in this encounterKettering Health [facility]03-23-2023 Instructions* Patient Instructions* Cynthia Ramos MD - 11/22/2022 12:23 PM EDT STOP Polymyxin trimethoprim (clear/white) Continue Prednisolone (pink/white) 1 drop LEFT eye 4 x daily Continue Ketorolac (saunders) 1 drop LEFT eye 4 x daily OK to use refresh OK to stop documented in this encounterKettering Health Miamisburg03-23-2023 History of Present illness Narrative* Cynthia Ramos [...] management of this patient's care with the Resident/Fellow/Superintendent Power, if applicable. I also have reviewed and [...] management of this patient's care with the Resident/Fellow/Superintendent Power, if applicable. I also have reviewed and agree with the assessment and plan as stated above and agree with all of its relevant components. Cynthia Ramos MD September 25, 2022 3:18 PM documented in this encounterKettering Health [facility]03-20-2023 Miscellaneous Notes* Telephone Encounter - Henrik Chen MD - 11/19/2022 6:38 PM EDT Call from Allie Juli Rutledge via answering service on 11/17/2022. At that [...] Saturday evening dileep seen. She lives in [place] and does not have transportation available. We discussed being seen at the ED for evaluation and potential evaluation by an supervisor blast furnace auxiliaries from [facility]. I advised that if she is not seen in the ED on 11/18/2022 that she either follow-up with Dr. Torres in the [facility] office or contact [facility] to be seen there. She has seen doctors at that office in the past. Henrik Chen MD documented in this encounterKettering Health Mi[facility]03-20-2023 History of Present illness Narrative* Valentine Torres, [...] 19, 2022 3:49 PM documented in this encounterKettering Health [facility]03-20-2023 Miscellaneous Notes* Telephone Encounter - Khalida Agarwal [...] develops new flashes or floaters. As the [place] doctor discussed with her, this can sometimes occur and we can often treat it with alaser in the office. We can discuss at her next appointment. Cynthia Ramos MD 11/19/2022 3:31 PM * Telephone Encounter - Khalida Agarwal - 11/19/2022 9:46 AM EDT Received office notes from [place]. Patient was seen on 11/18 at [facility] [place] [facility] regarding abnormal pupil and hemorrhage [...] and she was also seen at the [place] [facility]. She states that the doctor at that office removed eye patch and noticed a cosmetic issuewhere vitreous gel landed below pupil. I asked patient to have [place] fax over their notes so I can [...] 19, 2022 8:36 AM documented in this encounterKettering Health Mi[facility]burg03-20-2023 History of Present illness Narrative* Taina Patino PA-C - 11/19/2022 2:59 PM EDT Taina Patino PA-C Department of Orthopaedics Orthopaedics [address] [facility] [address] Dept: [phone] Dept November 19, 2022 CHIEF COMPLAINT: Established [...] for OT was placed and faxed to [employer]. We discussed proper hand washing, no soaking [...] than right. Imaging: Deferred today Ms. Allie Rutledge was advised as to contrast therapies and/or [...] [Hydrocodone-Acetaminophen] This note was partially generated using [employer] voice recognition system, and there may be some incorrect words, spellings, and punctuation that were not noted in checking the note before saving. Taina Patino PA-C * Alis Eid LPN - 11/19/2022 [...] site. Alis Eid LPN documented in this encounterKettering Health [facility]03-17-2023 Instructions* Patient Instructions* Cynthia Ramos MD - [...] Shadow in peripheral vision documented in this encounterKettering Health [facility]03-17-2023 History of Present illness Narrative* Cynthia Ramos [...] management of this patient's care with the Resident/Fellow/Superintendent Power, if applicable. I also have reviewed and [...] management of this patient's care with the Resident/Fellow/Superintendent Power, if applicable. I also have reviewed and agree with the assessment and plan as stated above and agree with all of its relevant components. Cynthia Ramos MD September 25, 2022 3:18 PM documented in this encounterKettering Health [facility]03-16-2023 History of Past illness Narrative* Problem Noted Date Resolved Date Nuclear senile cataract of left eye 11/15/2022 11/15/2022 Combined 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 06/25/2022 06/25/2022 Photopsia 06/25/2022 06/25/2022 documented as of this encounter (statuses as of 11/16/2022) [facility] History of Past illness Narrative* Problem Noted Date Resolved Date Nuclear senile cataract of left eye 11/15/2022 11/15/2022 Combined 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 06/25/2022 06/25/2022 Photopsia 06/25/2022 06/25/2022 documented as of this encounter (statuses as of 11/19/2022) [facility] History of Past illness Narrative* Problem Noted Date Resolved Date Nuclear senile cataract of left eye 11/15/2022 11/15/2022 Combined 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 06/25/2022 06/25/2022 Photopsia 06/25/2022 06/25/2022 documented as of this encounter (statuses as of 11/20/2022) [place] [address]-16-2023 History of Past illness Narrative* Problem Noted Date Resolved Date Nuclear senile cataract of left eye 11/15/2022 11/15/2022 Combined 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 06/25/2022 06/25/2022 Photopsia 06/25/2022 06/25/2022 documented as of this encounter (statuses as of 11/20/2022) [facility] of Past illness Narrative* Problem Noted Date Resolved Date Nuclear senile cataract of left eye 11/15/2022 11/15/2022 Combined 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 06/25/2022 06/25/2022 Photopsia 06/25/2022 06/25/2022 documented as of this encounter (statuses as of 11/26/2022) [facility] of Past illness Narrative* Problem Noted Date Resolved Date Nuclear senile cataract of left eye 11/15/2022 11/15/2022 Combined 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 06/25/2022 06/25/2022 Photopsia 06/25/2022 06/25/2022 documented as of this encounter (statuses as of 12/02/2022) [facility] of Past illness Narrative* Problem Noted Date Resolved Date Nuclear senile cataract of left eye 11/15/2022 11/15/2022 Combined 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 06/25/2022 06/25/2022 Photopsia 06/25/2022 06/25/2022 documented as of this encounter (statuses as of 12/05/2022) [facility] History of Past illness Narrative* Problem Noted Date Resolved Date Nuclear senile cataract of left eye 11/15/2022 11/15/2022 Combined 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 06/25/2022 06/25/2022 Photopsia 06/25/2022 06/25/2022 documented as of this encounter (statuses as of 12/13/2022) [facility] History of Past illness Narrative* Problem Noted [...] of this encounter (statuses as of 01/30/2023) [facility] of Past illness Narrative* Problem Noted [...] of this encounter (statuses as of 02/21/2023) [facility] of Past illness Narrative* Problem Noted [...] of this encounter (statuses as of 04/16/2023) [facility] of Past illness Narrative* Problem Noted [...] of this encounter (statuses as of 04/30/2023) [facility] of Past illness Narrative* Problem Noted [...] of this encounter (statuses as of 05/03/2023) [facility] of Past illness Narrative* Problem Noted [...] of this encounter (statuses as of 05/08/2023) [facility] of Past illness Narrative* Problem Noted [...] of this encounter (statuses as of 05/23/2023) [facility] of Past illness Narrative* Problem Noted [...] of this encounter (statuses as of 05/28/2023) [facility] of Past illness Narrative* Problem Noted [...] of this encounter (statuses as of 06/25/2023) [facility] of Past illness Narrative* Problem Noted [...] of this encounter (statuses as of 07/24/2023) [facility] of Past illness Narrative* Problem Noted [...] of this encounter (statuses as of 09/02/2023) [facility] of Past illness Narrative* Problem Noted [...] of this encounter (statuses as of 10/04/2023) [facility] of Past illness Narrative* Problem Noted [...] of this encounter (statuses as of 10/08/2023) [facility] of Past illness Narrative* Problem Noted [...] of this encounter (statuses as of 10/11/2023) [facility] of Past illness Narrative* Problem Noted [...] of this encounter (statuses as of 10/15/2023) [facility] of Past illness Narrative* Problem Noted [...] of this encounter (statuses as of 10/25/2023) [facility] of Past illness Narrative* Problem Noted [...] of this encounter (statuses as of 11/13/2023) [facility] of Past illness Narrative* Problem Noted [...] of this encounter (statuses as of 11/18/2023) [facility] of Past illness Narrative* Problem Noted [...] of this encounter (statuses as of 05/22/2023) [facility]23 Miscellaneous Notes* Telephone Encounter - Mauricio Bahena - 11/13/2022 3:36 PM EDT Called and informed patient to arrive at [address] [place] [address] at 10:45 am for 11/15/22 surgerywith Cynthia Ramos MD. Also reminded patient to refrain from eating or drinking for 8 hours prior to arrival for surgery, and to begin eyedrops in the left eye on 11/13/22. Patient states understanding and is agreeable. documented in this encounterKettering Health [facility]03-06-2023 Miscellaneous Notes* Telephone Encounter - Chaan Mao Ma - 11/05/2022 11:19 AM EST I called and spoke with patient. She will car pick up driver more hibiclens. Packet left at [facility] front. * Telephone Encounter - Natasha Jurado LPN - 11/05/2022 10:28 AM EST Patient called. Verified name and date of . Patient states she has surgery scheduled Saturdayand misplaced the packet of hand fish cleaner needed for the day of surgery. Can patient car pick up driver anotherpacket? Natasha Jurado LPN documented in this encounterKettering Health [facility]03-03-2023 Miscellaneous Notes* Telephone Encounter - Chana Mao Ma - 11/02/2022 10:25 AM EST I called and spoke to patient. Message given to patient from Taina. Patient states she had a very nice gentleman call her yesterday from [employer] with some instructions. * Telephone Encounter - Taina Patino PA-C - 11/01/2022 10:54 AM EST Nothing [...] date of regarding upcoming surgery with Dr. Hicks. Patient stated she has questions regarding procedure. Patient would like a phone call back Please advise patient at [phone]. Thank you Mary Cochran LPN documented in this encounterKettering Health [facility]03-01-2023 NoteHNO ID: [id number] Author: Michelle Perez OT/L Service: ? Author [...] THERAPY OCCUPATIONAL THERAPY TREATMENT NOTE ASSESSMENT: Allie Rutledge tolerated the session with no issues. She demonstrated improvements in FOLLOW THROUGH OF USING ADAPTIVE TECHNIQUES AND DEVICES FOR IADLS/ADLS. The patient will continue to benefit from ongoing skilled occupational therapy to progress toward set goals. Current Frequency: 1x every other week Duration: 12 weeks Total Number of Visits Planned: 6 Planned Treatment Interventions: Therapeutic exercise (54401), Self-senior care management (79322), Patient/Family/Caregiver Education, Functional training, Community / Work [...] COMPLETED. Skilled Intervention: Patient education as noted. Self-Correction Management: 1: COOKING: provided her with black [...] procedure. She is pursuing financial assistance from [employer] IN [place] and has the letter with equipment recommendations [...] to her. 6: TO INCREASE PARTICIPATION WITH MORAVIAN SERVICES:- trialed the [employer] TV GLASSES and was able to pick out signs, traffic, people outside when trialing same. Reviewed cleaning, and care instructions for taking care of them. She is wanting to borrow these for watching tv, seeing screens at her jehovah's witness to increase active participation with same. She id understanding instructions and accurately adjusted the focal distance with the lenses after practicing with same. 7: PROCURING OPTICAL AIDS/DEVICES: as id. above, did review her paperwork and recommendations made: *contact [employer] [facility] in [facility] to verify need of needing two written estimates;*if she does require two estimates then she was provided with another agency to assist w/ selling the recommended devices (MAGNIFIERS AND MORE) and (more content not included)...[facility]03-01-2023 History of Present illness Narrative * Michelle [...] THERAPY OCCUPATIONAL THERAPY TREATMENT NOTE ASSESSMENT: Allie Rutledge tolerated the session with no issues. She demonstrated improvements in FOLLOW THROUGH OF USING ADAPTIVE TECHNIQUES AND DEVICES FOR IADLS/ADLS. The patient will continue to benefit from ongoing skilled occupational therapy to progress toward set goals. Current Frequency: 1x every other week Duration: 12 weeks Total Number of Visits Planned: 6 Planned Treatment Interventions: Therapeutic exercise (54320), Self-senior care management (73926), Patient/Family/Caregiver Education, Functional training, Community / Work [...] COMPLETED. Skilled Intervention: Patient education as noted. Self-Correction Management: 1: COOKING: provided her with black [...] procedure. She is pursuing financial assistance from [employer] IN [place] and has the letter with equipment recommendations [...] to her. 6: TO INCREASE PARTICIPATION WITH MORAVIAN SERVICES:- trialed the [employer] TV GLASSES and wasable to pick out signs, traffic, people outside when trialing same. Reviewed cleaning, and care instructions for taking care of them. She is wanting to borrow these for watching tv, seeing screens ather jehovah's witness to increase active participation with same. She id understanding instructions and accurately adjusted the focal distance with the lenses after practicing with same. 7: PROCURING OPTICAL AIDS/DEVICES: as id. above, did review her paperwork and recommendations made:*contact [employer] [facility] in [facility] to verify need of needing two [...] REPORT PLAN OF CARE UPDATE: Assessment: Allie Rutledge demonstrates moderate improvement in IADLS/ADLS. She has [...] Planned: 6 Planned Treatment Interventions: Therapeutic exercise (07818), Self-senior care management (08653), Patient/Family/Caregiver Education, Functional training, Community / Work [...] 77 Michelle Perez OT/L documented in this encounterKettering Health [facility]02-24-2023 Miscellaneous Notes* Telephone Encounter - Viviana Cochran - 10/26/2022 9:40 AM EST Patient left message in surgery scheduling to reschedule 10/29/22 IOL measurements ([facility]an). Called patient and offered 11/08/22 at 8:30 am. Patient declines due to has hand surgery the day before. States she will arrange transportation with a family member (called [employer] too late to set up through them). Will keep 10/29/22 as scheduled. documented in this encounterKettering Health [facility]02-21-2023 History of Present illness Narrative* Mel Fleming RDMS - 10/23/2022 4:00 PM EST Radiology Service Progress Note PATIENT NAME: Allie Rutledge DATE OF SERVICE: October 23, 2022 TIME: [...] 23, 2022 4:42 PM documented in this encounterKettering Health [facility]02-15-2023 NoteHNO ID: [id number] Author: Michelle Perez OT/L Service: ? Author [...] THERAPY OCCUPATIONAL THERAPY TREATMENT NOTE ASSESSMENT: Allie Rutledge tolerated the session with no issues. She [...] OBJECTIVE MEASURES WITH LEVEL OF FUNCTION: TREATMENT: Self-Correction Management: 1: FUNCTIONAL COMMUNICATION TRAINING: reading recipe/grocery [...] level with same. She was provided needle food adviser, and pre threaded needles with colored thread [...] clips. 6: Threading a needle/sewing: issued needle food adviser and self threaded needles and with use of the floor stand JIM LITE she will practice with same but did not formally have her practice on this date. Provided instruction and education and demonstration and she was familiar w/ the filament needle food adviser presented. 7: Eating neatly: on the self [...] if needed in t (more content not included)...[facility] 10-17-2022 History of Present illness Narrative* Michelle Perez OT/Yonathan - 10/17/2022 10:38 AM EST Episode Visit Count: 2 Therapist That Will Accept/Oversee The Plan Of Care: MICHELLE PEREZ Start of Care Date: 09/19/22 Onset Date: 11/16/17 Plan of Care Certification Date: 09/19/22 Next Certification Due Date: 11/18/22 Patient Identified by Name and Date of : Yes REHABILITATION AND SPORTS THERAPY OCCUPATIONAL THERAPY TREATMENT NOTE ASSESSMENT: Allie Rutledge tolerated the session with no issues. She [...] OBJECTIVE MEASURES WITH LEVEL OF FUNCTION: TREATMENT: Self-Correction Management: 1: FUNCTIONAL COMMUNICATION TRAINING: reading recipe/grocery [...] level with same. She was provided needle food adviser, and pre threaded needles with colored thread [...] her during previous treatment session. Did trial thedark EMILIANO NOIR 10 fit over filters and [...] clips. 6: Threading a needle/sewing: issued needle food adviser and self threaded needles and with use of the floor stand JIM ALMANZAR she will practice with same but did not formally have her practice on this date. Provided instruction and education and demonstration and she was familiar w/ the filament needle food adviser presented. 7: Eating neatly: on the self [...] CLINIC AND TO PRACTICE WITH SAME (HER CANNON FIRE DIRECTION SPECIALIST WILL CARRY THIS IN FOR HER D/T INCREASED WEIGHT IN ORDER TO ENSURE HER SAFETY) AND WILL CONT. TO BORROW THE LIGHT EMILIANO FIT OVER FILTERS. WAS ISSUED ADDITIONAL BOLD LINE PAPER TABLETS, SOCK CLIPS, NEEDLE VETERINARY X RAY OPERATOR, SELF THREADED NEEDLES AND A LED FLASHLIGHT. [...] 70 Michelle Perez OT/L documented in this encounterK[facility]-14-[facility] History of Present illness Narrative* Ifeoma Davis MD - 10/16/2022 1:12 PM EST Reason for Visit Patient presents with: Physical: preop clearance for surgeries on 11/07/22, 11/15/22 Allie Rutledge is a 52 year old female who [...] EXTRACAP,INSERT LENS Right 06/25/2022 S BALLOON,[place] [id number] FAMILY HISTORY Problem Relation Age of Onset Heart Father Age 61 Heart Maternal Grandfather Cancer Paternal Grandmother Breast Cancer Maternal Aunt 55 ovarian cancer Heart Son AL Ovarian cancer Maternal Grandmother Glaucoma No Family [...] remaining Ifeoma Davis MD documented in this encounterKettering [facility]02-07-2023 History of Present illness Narrative* Brunilda Torres RT(R) - 10/09/2022 12:50 PM EST Radiology Service Progress Note PATIENT NAME: Allie Rutledge DATE OF SERVICE: October 09, 2022 TIME: [...] 09, 2022 12:50 PM documented in this encounterKettering Health [facility]02-02-2023 Miscellaneous Notes* Telephone Encounter - Clint Brennan RN - 10/04/2022 8:15 AM EST Patient reports she is picking up the Rx today. * Telephone Encounter - Ifeoma Davis MD - 10/03/2022 7:58 PM EST Called in sydni espino for the patient Regards, Ifeoma Davis MD * Telephone Encounter - Allie Yoonvereniceyamil JOLIE - 10/02/2022 10:26 AM EST Patient calling cancelled her appt today for her physical since she is sick, she felt to weak to come in. Patient said she has sinus infection, headache, congestion one side of her nose, using salinenasal spray, scratchy throat, post nasal drainage, yellow secretions when she blows. Patient said she can not drive and can have friend car pick up driver rx. Patient is asking for Solafeetck rx to be sent to [facility] please. Please advise documented in this encounterK[facility]01-31-2023 Miscellaneous Notes* Telephone Encounter - Chana Mao Ma - 10/02/2022 8:44 AM EST Surgery has been scheduled as requested. * Telephone Encounter - Chana Mao Ma - 10/01/2022 4:00 PM EST Surgical request completed for right ring and left middle trigger finger releases at [facility] on 11/02/2022. Post op appointments have been scheduled and mailed to patient. documented in this encounterK[facility]01-30-2023 History of Present illness Narrative* Massimo Hicks MD - 10/01/2022 2:19 PM EST Massimo Hicks MD Department of Orthopaedics Orthopaedics [address] [facility] [address] Dept: [phone] Dept October 01, 2022 CHIEF COMPLAINT: Established [...] getting the trigger releases done. Ms. Allie Rutledge was advised as to contrast therapies and/or to take analgesics/anti-inflammatories as needed and all contraindications were reviewed. OBJECTIVE: Ms. Allie Rutledge is a pleasant 52 year old in [...] EXTRACAP,INSERT LENS Right 06/25/2022 S BALLOON,[place] ABLATION [id number] Medications: Current Outpatient Medications Medication Sig mometasone [...] (see HPI) Psych (no depression, anxiety) Massimo Hicks MD documented in this encounterKettering Health [facility]01-30-2023 History of Present illness Narrative* Laura Pimentel, RT(R) - 10/01/2022 1:30 PM EST Radiology Service Progress Note PATIENT NAME: Allie Rutledge DATE OF SERVICE: October 01, 2022 TIME: [...] 01, 2022 2:16 PM documented in this encounterKettering Health [facility]01-27-2023 Miscellaneous Notes* Letter - Mammography Coordinator - 09/28/2022 3:14 PM EST October 01, 2022 PID: [id number] Allie Rutledge [address] [place] [id number] Dear Ms. Rutledge, Your recent breast imaging exam on 09/27/2022 showed a possible finding that requires additional imaging studies for a complete evaluation. Most such findings are probably benign (not cancer). If you have a healthcare provider who ordered/prescribed your screening mammogram: Please call [phone] or [phone]: [phone] to schedule an appointment for your additional [...] and reports are [facility] as part of [facility] permanent medical record, and are available for your continuing care. Thank you for allowing us to help in meeting your health care needs. Sincerely, Dr. Osei Interpreting Radiologist [facility] (Additional imaging) documented in this encounterKettering Health [facility]01-26-2023 History of Present illness Narrative* Kimberley Salmeron Mammo Tech - 09/27/2022 1:10 PM EST Radiology Service Progress Note PATIENT NAME: Allie Rutledge DATE OF SERVICE: September 27, 2022 TIME: [...] PERIPHERAL IV DATA: Not applicable SIGNED BY: Kimberley Salmeron Be Hereo Jared September 27, 2022 1:05 PM documented in this encounterKettering [facility]01-24-2023 History of Present illness Narrative* Cynthia Ramos [...] PEIOL OD and iridotomy suturing by Dr. 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 Allie Rutledge has confirmed that she is no longer [...] with lens implantation were discussed with Allie Rutledge in detail. she appeared to understand and asked that I proceed with plans for surgery. 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 The surgeon/proceduralist and patient have discussed [...] management of this patient's care with the Resident/Fellow/Superintendent Power, if applicable. I also have reviewed and [...] management of this patient's care with the Resident/Fellow/Superintendent Power, if applicable. I also have reviewed and agree with the assessment and plan as stated above and agree with all of its relevant components. Cynthia Ramos MD September 25, 2022 3:18 PM documented in this encounterKettering [facility]01-18-2023 NoteHNO ID: [id number] Author: Michelle Perez, OT/L Service: ? Author [...] VISION EVALUATION PLAN OF CARE: Assessment: Allie Rutledge presents with the chief complaint of low vision for completing required IADLS AND FUNCTIONAL COMMUNICATION. She presents with impairments of VISUAL ACUITY, LOSS OF CENTRAL ANDERSEN AND DIFFICULTY WITH GLARE AND REDUCED CONTRAST. She may benefit from skilled occupational therapy services to improve SKILL LEVEL FOR FUNCTIONAL COMMUNICATION, IADLS AND SAFETY WITH SAME. Allie Rutledge appears to be a good candidate for [...] Planned: 6 Planned Treatment Interventions: Therapeutic exercise (10235);Self-senior care management (11715);Patient/Family/Caregiver Education;Functional training;Community / Work Reintegration PLAN FOR NEXT VISIT: FOLLOW UP ON SELF PERFORMANCE ASSESSMENT FOR ADLS/IADLS AND ADDRESS SAME Patient demonstrates good understanding of plan of care and treatment. The above goals and plan of care were discussed and agreed upon by patient/family. SUBJECTIVE: Allie Rutledge is a 52 year old female seen [...] Treatment: (was seen by low vision referring clinical rehab liaison, Dr. Mason recently. 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 She presents with impairments of VISUAL ACUITY, LOSS OF CENTRAL ANDERSEN AND DIFFICULTY WITH GLARE AND REDUCED CONTRAST. She may benefit from skilled occupational therapy services to improve SKILL LEVEL FOR FUNCTIONAL COMMUNICATION, IADLS AND SAFETY WITH SAME. Allie Rutledge appears to be a good candidate for [...] Planned: 6 Planned Treatment Interventions: Therapeutic exercise (08609);Self-senior care management (07902);Patient/Family/Caregiver Education;Functional training;Community / Work Reintegration PLAN FOR NEXT VISIT: FOLLOW UP ON SELF PERFORMANCE ASSESSMENT FOR ADLS/IADLS AND ADDRESS SAME Patient demonstrates good understanding of plan of care and treatment. The above goals and plan of care were discussed and agreed upon by patient/family. SUBJECTIVE: Allie Rutledge is a 52 year old female seen [...] Treatment: (was seen by low vision referring clinical rehab liaison, Dr. Mason recently. 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 She will be moving in w/ her boyfriend in near future (currently selling he home).) Assistance Available: (family, and friends) Home Type: (mobile home/one level. Did not assess steps to enter home.) Equipment Owned: (has a video magnifier issued by BS when working, portable video magnifier but lost cord/not id. premorbid assist with same; uses computer to pay bills online, currently seeking out set up with IVORY martinez on IPHONE, did see low vision clinical rehab liaison for LV equi) Transportation: (relies on alternative [...] FUNCTIONAL VISUAL HISTORY: In the past Allie Juli [place] read for enjoyment moderately and work moderately. [...] REVEALS: Recalling report from referring low vision clinical rehab liaison's report: RIGHT EYE: 20/250 DISTANCE AND NEAR 6.3M LEFT EYE: CF @2', and near 1.6M Both Near: 1.6M. Patient is waiting for LEFT eye cataract extraction and currently is not able to wear corrective glasses. Patient id. Losing her prescription sunglasses and only has wrap around dark saunders filters. Pt. Is applying for financial resources [facility] but needs prices from two providers and was provided contact information from[employer] to assist with devices that referring low vision clinical rehab liaison (Dr. Mason) provided to her at time of her assessment. PSYCHOSOCIAL ASSESSMENT: Alert & Oriented X 4. Affect: appropriate, reasonably positive mood , and hyper verbal/tangential. Memory: no gross deficits observed. Concentration: WFL. Language: verbal and reading w/ appropriate use of adaptive equipment. Fund of Knowledge: High Patient Reports her: Motivation is High. Activity level is High. [place] for ADL is: Average. Life satisfaction is: [...] Education/Teach Back: States/Identifies;Return Demonstration TREATMENT: Evaluation Evaluation Self-Correction Management: 1: GROOMING: she was able to [...] needed. 6: COMMUNITY SUPPORT/RESOURCES: provided her with [facility] resources for support ([employer], AND [employer]) and she is already set up with [...] 75 Michelle Perez OT/L documented in this encounterKet[facility]01-18-2023 Miscellaneous Notes* Telephone Encounter - Barbie Alicea Pss - 09/19/2022 9:50 AM EST Per Ilsa at Occupational Therapy she does not help with white tsai/mobile training. She states shesent you a message. She states she will call patient and explain this to her and see if she still wants to come in for her appointment today. documented in this encounterKet[facility]12-15-2022 History of Present illness Narrative* Wolf Mason, [...] as needed LV exam documented in this encounterKettering Health [facility]12-13-2022 Miscellaneous Notes* Telephone Encounter - Starla Mckeon [...] LPN * Telephone Encounter - David Anna APRN.TALENT MANAGER - 08/10/2022 3:38 PM EST Flonase was ordered a few months ago. Was this too pricey? If not I can reorder this. Thank you David Anna APRN.TALENT MANAGER * Telephone Encounter - Lea Hicks Pss - 08/10/2022 2:28 PM EST Patient [...] as needed. Please review and advise. Lea Hicks Pss documented in this encounterKettering Health [facility]11-22-2022 History of Present illness Narrative* Jonathon Johnson MD - 07/24/2022 1:40 PM EST Assessment [...] others. I have seen and examined Allie Rutledge. I have discussed the case and the management of this patient's care with the Resident/Fellow, if applicable. I also have reviewed and agree with the assessment and plan as stated above and agree withall of its relevant components. Jonathon Johnson MD documented in this encounterKettering Health [facility]11-22-2022 Miscellaneous Notes* Telephone Encounter - Aleksandra Min LPN - 07/24/2022 11:21 AM EST Patient notified. Verbalized understanding. * Telephone Encounter - Ifeoma Davis MD - 07/23/2022 6:53 PM EST I sent this to Ifeoma Hinson MD * Telephone Encounter - Melyl Prado [facility] - 07/23/2022 12:10 PM EST Allie Rutledge is calling Ifeoma Davis MD today she stated she saw [facility] [...] calling: self Call patient at: at home [phone] (home) [phone] (cell) Was an appointment scheduled: No Closing statement: Results or non-symptom based questions: Thank you for calling [facility], your call will be returned within the next business day. Melly Prado Pss documented in this encounterKettering [facility]11-21-2022 Miscellaneous Notes* Telephone Encounter - Celeste Cardona JOLIE - 07/23/2022 3:00 PM EST Patient has [...] LPN * Telephone Encounter - Melly Prado [facility] - 07/23/2022 12:02 PM EST Patient has [...] No need to notify patient. Melly Prado [facility] documented in this encounterKettering [facility]11-21-2022 Miscellaneous Notes* Telephone Encounter - Vanessa Cooley RN - 07/23/2022 12:41 PM EST Patient last seen for annual exam on 12/04/21. Vanessa Cooley RN * [facility] - [facility] 07/23/[facility]22 12:16 PM EST Patient has been identified by name and date of : Yes Requested Prescriptions Pending Prescriptions Disp Refills conjugated estrogens-medroxyPROGESTERone (PREMPRO) 0.45-1.5 mg per tablet 84 tablet 2 Sig: Take 1 tablet by mouth once daily. RX INSTRUCTIONS: Patient aware RX escripted to mail away pharmacy. No need to notify patient. Melly Prado [facility] documented in this encounterKettering [facility]11-03-2022 Miscellaneous Notes* Telephone Encounter - Dara Valdez RN - 07/05/2022 8:41 AM EDT Called patient and notified that provider sent medication to [facility]. Patient voiced understanding. Dara Valdez RN * Telephone Encounter - Clint Brennan RN - 07/04/2022 4:11 PM EDT Patient asking pcp to send Rx [facility]. See message below. * Telephone Encounter - [...] advise, Dara Valdez RN documented in this encounterKettering Health [facility]11-01-2022 Instructions* Patient Instructions* Jonathon Johnson MD - 07/03/2022 1:14 PM EDT -prednisolone (white or pink cap) four times a day x 1 week, then three times a day for 1 week, then twice a day for 1 week, then once a day for 1 week, then stop -vigamox (mora cap) four times a day for 1 week, then stop documented in this encounterKettering Health [facility]11-01-2022 History of Present illness Narrative* Jonathon Johnson MD - 07/03/2022 1:12 PM EDT Assessment [...] others. I have seen and examined Allie Rutledge. I have discussed the case and the management of this patient's care with the Resident/Fellow, if applicable. I also have reviewed and agree with the assessment and plan as stated above and agree withall of its relevant components. Jonathon Johnson MD documented in this encounterKettering Health [facility]10-28-2022 History of Present illness Narrative* Valentine Torres, [...] as planned Follow-up as scheduled with Dr. Johnson in 4 days Valentine Torres, OD June 29, 2022 12:01 PM documented in this encounterKettering Health [facility]burg10-28-2022 Miscellaneous Notes* Telephone Encounter - Tori Morales Ma - 06/29/2022 10:14 AM EDT Patient notified. * Telephone Encounter - David Anna APRN.CNP - 06/28/2022 4:47 PM EDT I reviewed [...] should be re-evaluated. Thank you David Anna APRN.CNP * Telephone Encounter - Sita Mauricio LPN [...] and he felt it was viral. Dr. Johnson is asking that she be given something to treat the cough and patient is requesting an antibiotic such as Z-pk or levaquin. Please review and advise. documented in this encounterKettering Health [facility]10-28-2022 Miscellaneous Notes* Telephone Encounter - Janet Rivero RN - 06/29/2022 8:59 AM EDT Patient has been scheduled for today 06/29/2022 at the [place] office with Dr. Torres. Janet Rivero RN June 29, 2022 8:59 AM * Telephone Encounter - Janet Rivero RN - 06/29/2022 7:35 AM EDT Received message via Secure Chat from Dr. Jonhson that due to patient living in [place] that she could see Dr. Torres for a dilated exam as well. If patient wants seen by Dr. Johnson he is at [facility]. Janet Rivero RN June 29, 2022 7:36 AM * Telephone Encounter - Janet Rivero RN - 06/28/2022 6:07 PM EDT Discussed patient with Dr. Johnson. He advised for patient to be seen on 06/29/[address] Ramos. Routed to [facility] staff to schedule. Janet Rivero RN June 28, 2022 6:08 PM * Telephone Encounter - Janet Rivero RN - 06/28/2022 4:05 PM EDT Patient with Superior bleb right eye and 2 prolene sutures into iridotomy right eye. Using Prednisolone, Ketorolac and Moxifloxacin as per post-op instructions Has script for Polysporin ophthalmic that was prescribed for left eye 02/28/2022. Will wait for Dr. Johnson to advise. Janet Rivero RN June 28, 2022 4:06 PM * Telephone Encounter - Meche Madeleine - 06/28/2022 3:44 PM EDT Patient had [...] can do to help. documented in this encounterKettering [facility]10-25-2022 Instructions* Patient Instructions* Jonathon Johnson MD - 06/26/2022 1:40 PM EDT -prednisolone every two hours right eye -vigamox four times a day right eye -geldrops left eye -ointment at bedtime left eye documented in this encounterKettering Health [facility]10-25-2022 History of Present illness Narrative* Jonathon Johnson MD - 06/26/2022 1:37 PM EDT Assessment [...] others. I have seen and examined Allie Rutledge. I have discussed the case and the management of this patient's care with the Resident/Fellow, if applicable. I also have reviewed and agree with the assessment and plan as stated above and agree withall of its relevant components. 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 06/25/2022 06/25/2022 Photopsia 06/25/2022 06/25/2022 documented as of this encounter (statuses as of 06/26/2022) [facility] of Past illness Narrative* Problem Noted Date Resolved Date Combined 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 06/25/2022 06/25/2022 Photopsia 06/25/2022 06/25/2022 documented as of this encounter (statuses as of 06/26/2022) [facility] of Past illness Narrative* Problem Noted Date Resolved Date Combined 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 06/25/2022 06/25/2022 Photopsia 06/25/2022 06/25/2022 documented as of this encounter (statuses as of 06/29/2022) [facility] of Past illness Narrative* Problem Noted Date Resolved Date Combined 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 06/25/2022 06/25/2022 Photopsia 06/25/2022 06/25/2022 documented as of this encounter (statuses as of 06/29/2022) [facility] of Past illness Narrative* Problem Noted Date Resolved Date Combined 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 06/25/2022 06/25/2022 Photopsia 06/25/2022 06/25/2022 documented as of this encounter (statuses as of 06/29/2022) [facility] of Past illness Narrative* Problem Noted Date Resolved Date Combined 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 06/25/2022 06/25/2022 Photopsia 06/25/2022 06/25/2022 documented as of this encounter (statuses as of 07/03/2022) [facility] of [facility] illness Narrative* Problem Noted Date Resolved Date Combined 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 06/25/2022 06/25/2022 Photopsia 06/25/2022 06/25/2022 documented as of this encounter (statuses as of 07/05/2022) [facility] of [facility] illness Narrative* Problem Noted Date Resolved Date Combined 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 06/25/2022 06/25/2022 Photopsia 06/25/2022 06/25/2022 documented as of this encounter (statuses as of 07/23/2022) [facility] of [facility] illness Narrative* Problem Noted Date Resolved Date Combined 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 06/25/2022 06/25/2022 Photopsia 06/25/2022 06/25/2022 documented as of this encounter (statuses as of 07/24/2022) [facility] of [facility] illness Narrative* Problem Noted Date Resolved Date Combined 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 06/25/2022 06/25/2022 Photopsia 06/25/2022 06/25/2022 documented as of this encounter (statuses as of 07/24/2022) [facility] of [facility] illness Narrative* Problem Noted Date Resolved Date Combined 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 06/25/2022 06/25/2022 Photopsia 06/25/2022 06/25/2022 documented as of this encounter (statuses as of 07/25/2022) [facility] of [facility] Narrative* Problem Noted Date Resolved Date Combined 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 06/25/2022 06/25/2022 Photopsia 06/25/2022 06/25/2022 documented as of this encounter (statuses as of 08/14/2022) [facility] of [facility] Narrative* Problem Noted Date Resolved Date Combined 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 06/25/2022 06/25/2022 Photopsia 06/25/2022 06/25/2022 documented as of this encounter (statuses as of 08/16/2022) [facility] of [facility] Narrative* Problem Noted Date Resolved Date Combined 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 06/25/2022 06/25/2022 Photopsia 06/25/2022 06/25/2022 documented as of this encounter (statuses as of 09/20/2022) [facility] [place] History of Past illness Narrative* Problem Noted Date Resolved Date Combined 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 06/25/2022 06/25/2022 Photopsia 06/25/2022 06/25/2022 documented as of this encounter (statuses as of 09/26/2022) [facility] [place]24[facility] History of Past illness Narrative* Problem Noted Date Resolved Date Combined 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 06/25/2022 06/25/2022 Photopsia 06/25/2022 06/25/2022 documented as of this encounter (statuses as of 09/27/2022) [facility] [place]24[facility] History of Past illness Narrative* Problem Noted Date Resolved Date Combined 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 06/25/2022 06/25/2022 Photopsia 06/25/2022 06/25/2022 documented as of this encounter (statuses as of 09/28/2022) [facility] [place] History of Past illness Narrative* Problem Noted Date Resolved Date Combined 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 06/25/2022 06/25/2022 Photopsia 06/25/2022 06/25/2022 documented as of this encounter (statuses as of 10/01/2022) [facility] [place]24[facility] History of Past illness Narrative* Problem Noted Date Resolved Date Combined 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 06/25/2022 06/25/2022 Photopsia 06/25/2022 06/25/2022 documented as of this encounter (statuses as of 10/02/2022) [facility] [place] History of Past illness Narrative* Problem Noted Date Resolved Date Combined 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 06/25/2022 06/25/2022 Photopsia 06/25/2022 06/25/2022 documented as of this encounter (statuses as of 10/02/2022) [facility] [place] History of Past illness Narrative* Problem Noted Date Resolved Date Combined 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 06/25/2022 06/25/2022 Photopsia 06/25/2022 06/25/2022 documented as of this encounter (statuses as of 10/04/2022) [facility] [place] History of Past illness Narrative* Problem Noted Date Resolved Date Combined 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 06/25/2022 06/25/2022 Photopsia 06/25/2022 06/25/2022 documented as of this encounter (statuses as of 10/09/2022) [facility] [place] History of Past illness Narrative* Problem Noted Date Resolved Date Combined 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 06/25/2022 06/25/2022 Photopsia 06/25/2022 06/25/2022 documented as of this encounter (statuses as of 10/11/2022) [place] [address]-24-2022 History of Past illness Narrative* Problem Noted Date Resolved Date Combined 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 06/25/2022 06/25/2022 Photopsia 06/25/2022 06/25/2022 documented as of this encounter (statuses as of 10/17/2022) [facility] [place] History of Past illness Narrative* Problem Noted Date Resolved Date Combined 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 06/25/2022 06/25/2022 Photopsia 06/25/2022 06/25/2022 documented as of this encounter (statuses as of 10/17/2022) [facility] [place] History of Past illness Narrative* Problem Noted Date Resolved Date Combined 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 06/25/2022 06/25/2022 Photopsia 06/25/2022 06/25/2022 documented as of this encounter (statuses as of 10/25/2022) [facility] [place] History of Past illness Narrative* Problem Noted Date Resolved Date Combined 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 06/25/2022 06/25/2022 Photopsia 06/25/2022 06/25/2022 documented as of this encounter (statuses as of 10/26/2022) [facility] [place] History of Past illness Narrative* Problem Noted Date Resolved Date Combined 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 06/25/2022 06/25/2022 Photopsia 06/25/2022 06/25/2022 documented as of this encounter (statuses as of 10/29/2022) [facility] [place] History of Past illness Narrative* Problem Noted Date Resolved Date Combined 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 06/25/2022 06/25/2022 Photopsia 06/25/2022 06/25/2022 documented as of this encounter (statuses as of 10/31/2022) [facility] [place] History of Past illness Narrative* Problem Noted Date Resolved Date Combined 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 06/25/2022 06/25/2022 Photopsia 06/25/2022 06/25/2022 documented as of this encounter (statuses as of 11/02/2022) [facility] [place] History of Past illness Narrative* Problem Noted Date Resolved Date Combined 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 06/25/2022 06/25/2022 Photopsia 06/25/2022 06/25/2022 documented as of this encounter (statuses as of 11/05/2022) [facility] [place] History of Past illness Narrative* Problem Noted Date Resolved Date Combined 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 06/25/2022 06/25/2022 Photopsia 06/25/2022 06/25/2022 documented as of this encounter (statuses as of 11/13/2022) [facility] [place] History of Past illness Narrative* Problem Noted Date Diagnosed Date Resolved Date Combined forms of age-relate d cataract of right eye 06/25/2022 06/25/2022 Photopsia 06/25/2022 06/25/2022 Combined forms of age-relate d cataract, left eye 04/03/2022 12/29/2022 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, right, indeterminate stage 10/26/2021 0 12/29/2022 documented as of this encounter (statuses as of 07/06/2023) [facility] [place] History of Past illness Narrative* Problem Noted Date Diagnosed Date Resolved Date Combined forms of age-relate d cataract of right eye 06/25/2022 06/25/2022 Photopsia 06/25/2022 06/25/2022 Combined forms of age-relate d cataract, left eye 04/03/2022 12/29/2022 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, right, indeterminate stage 10/26/2021 0 12/29/2022 documented as of this encounter (statuses as of 07/06/2023) [facility] [place] History of Past illness Narrative* Problem Noted Date Diagnosed Date Resolved Date Combined forms of age-relate d cataract of right eye 06/25/2022 06/25/2022 Photopsia 06/25/2022 06/25/2022 Combined forms of age-relate d cataract, left eye 04/03/2022 12/29/2022 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, right, indeterminate stage 10/26/2021 0 12/29/2022 documented as of this encounter (statuses as of 07/06/2023) [facility] [place] History of Past illness Narrative* Problem Noted Date Diagnosed Date Resolved Date Combined forms of age-relate d cataract of right eye 06/25/2022 06/25/2022 Photopsia 06/25/2022 06/25/2022 Combined forms of age-relate d cataract, left eye 04/03/2022 12/29/2022 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 Author Type: Registered Nurse Type: Nursing Progress Note Filed: 06/25/2022 9:59 AM Note Text: Spoke with Mallika FLASH DEVELOPER that patient has questions for Dr. Johnson prior to procedure.[id number] Discharge instructions* Discharge Instr - Other Orders* Jonathon Johnson MD - 06/25/2022 11:31 AM EDT Instructions [...] or 38.3 C Trouble breathing Contact Jonathon Johnson [phone] and leave voicemail -emergency numbers: [phone] or ext [phone] and ask for the eye doctor contracting officer. documented in this [facility]10-24-2022 History and physical note * Jonathon Johnson MD - 06/25/2022 10:02 AM EDT UPDATED [...] be found in the attached. SIGNATURE: Jonathon Johnson MD PATIENT NAME: Allie Rutledge DATE: June 25, 2022 TIME: 10:02 AM documented in this [facility]10-24-2022 Nurse Note* Allie Cardoso RN - 06/25/2022 9:58 AM EDT Spoke with Mallika FLASH DEVELOPER that patient has questions for Dr. Johnson prior to procedure. documented in this [facility]10-24-2022 Surgical operation note* Operative Report - Jonathon Johnson MD - 06/25/2022 9:58 AM EDT OPERATIVE/PROCEDURE REPORT OPHTHAMOLOGY LOG ID: [id number] SURGERY/PROCEDURE DATE: 06/25/2022 INCISION/PROCEDURE START TIME: 10:13 AM INCISION CLOSE/PROCEDURE END TIME: 11:27 AM SURGEON(S)/PROCEDURALIST(S) AND RETAIL ATTENDANT(S): Surgeon(s) and Role: * Jonathon Johnson MD - Primary PROCEDURE(S): Procedure(s) (LRB): PHACOEMULSIFICATION [...] Implant Name Type Inv. Item Serial No. Lithographer Apprentice Lot No. LRB No. Used Action Model No. LENS ACRYSOF ULTRASERT +14.5 DIOPTER ACRYLIC IOL 1 PIECE FOLDABLE UV BLUE - [id number] Intraocular Lens LENS ACRYSOF ULTRASERT +14.5 DIOPTER ACRYLIC IOL 1 PIECE FOLDABLE UV BLUE [id number] [employer] Right 1 Implanted [id number] Ocular Co-Morbidities: Yes Intra-operative Complications None I/primary surgeon/proceduralist performed the entire procedure. SIGNATURE: Jonathon Johnson MD PATIENT NAME: Allie Rutledge DATE: June 25, 2022 TIME: 11:31 AM PAGER/CONTACT #: [phone] documented [facility] [place] Miscellaneous Notes* Telephone Encounter - Janet Rivero RN - 06/22/2022 10:58 AM EDT Pended pre-operative drop prescriptions to Dr. Johnson for approval. Janet Rivero RN June 22, 2022 10:59 AM documented in this [facility] [place] Miscellaneous Notes* Telephone Encounter - Meche Salvador - 06/22/2022 9:24 AM EDT Patient's pharmacy has no record of receiving the pre surgical prescriptions. Her surgery is 06-25-22, so she needs to start the drops tomorrow. Please send drops to [facility] [address] [place], [place] documented in this [facility] [place] History of Present illness Narrative* Charlene Grossman MD - 06/20/2022 5:16 PM EDT Images from the original note were not included. Charlene Grossman MD Interventional Cardiology [address] [place] [id number] Chief Complaint Patient presents with: CARD New Patient Consult: PXE HISTORY OF PRESENT ILLNESS: Ms. [place] is a 52 year old female patient [...] (RIGHT EYE) Right 10/26/2021 S [place] [id number] FAMILY HISTORY Problem Relation Age of Onset Heart Father Age 61 Heart Maternal Grandfather Cancer Paternal Grandmother Breast Cancer Maternal Aunt 55 ovarian cancer Heart Son AL Ovarian cancer Maternal Grandmother Glaucoma No Family [...] to correct any errors. documented in this encounterK[facility] [place]10-19-2022 Nurse Note* Alana Jiang MA - 06/20/2022 12:46 PM EDT Patient c/o bradycardia, palpitations, SOB, chest tenderness documented in this encounterK[facility] [place]10-19-2022 Miscellaneous Notes* Telephone Encounter - Mauricio Josef - 06/20/2022 9:32 AM EDT Attempted to contact patient to inform to arrive at [address] [place] [address] at 09:05 am for 06/25/22 surgery with Jonathon Johnson MD, to refrain from eating or drinking for 8 hours prior to arrival for surgery, and to begin the eyedrops in the right eye on 06/23/22. Left message on machine to callwith any questions or concerns. documented in this encounterK[facility] [place]09-09-2022 Miscellaneous Notes* Telephone Encounter - Celeste Cardona [...] Celeste Cardona LPN * Telephone Encounter - Myra Mathur - 05/11/2022 10:15 AM EDT Patient has [...] pharmacy. No need to notify patient. [facility] documented in this encounterK[facility] [place]2022 Miscellaneous Notes* Telephone Encounter - Anshul Oliver Ma - 05/11/2022 10:29 AM EDT NOMI: 12/25/2021 Last refill: 09/18/2021 QTY: 60 Refills: 2 * Telephone Encounter - Myra Deal [facility] - 05/11/2022 10:19 AM EDT Patient is requesting medication, Gabapentin 100 mg take one daily at bedtime. She will need these for her upcoming eye procedure. This medication is not on the medication list. Please send to her local pharmacy [facility]. Any questions , please call patient [phone] Electronically signed by [facility] at 05/11/2022 10:26 AM EDT documented in this encounterK[facility] [place]09-01-2022 History of Present illness Narrative* Viviana Powell Ma - 05/03/2022 4:34 PM EDT EMG/NCV order faxed to [facility] scheduling. Referral done in computer. * Massimo Hicks MD - 05/03/2022 1:30 PM EDT Massimo Hicks MD Department of Orthopaedics Orthopaedics [facility] [address] Dept: [phone] Dept May 03, 2022 CHIEF COMPLAINT: New [...] FOLLOW UP INSTRUCTIONS: As above Ms. Allie Rutledge was advised as to contrast therapies and/or to take analgesics/anti-inflammatories as needed and all contraindications were reviewed. OBJECTIVE: Ms. Allie Rutledge is a pleasant 52 year old in [...] (RIGHT EYE) Right 10/26/2021 S [place] [id number] Family History: FAMILY HISTORY Problem Relation Age of Onset Heart Father Age 61 Heart Maternal Grandfather Cancer Paternal Grandmother Breast Cancer Maternal Aunt 55 ovarian cancer Heart Son AL Ovarian cancer Maternal Grandmother Glaucoma No Family [...] (no depression, anxiety) REFERRING PHYSICIAN: Ms. Allie Rutledge was referred to me for consultation by the following physician. This consultation note will be sent to the following physician by either mail or electronic medical record. Massimo Hicks [address] [facility] [address] Ifeoma Davis MD [address] [facility] [address] Massimo Hicks MD documented in this encounterKet[facility] [place]08-24-2022 Miscellaneous Notes* Telephone Encounter - Zainab Leyva - 04/25/2022 10:42 AM EDT INTRAOCULAR LENS ORDER ATTN: [facility] PATIENTS NAME: Allie Rutledge SURGERY DATE: 06/25/2022 EYE: OD SURGEON: Jonathon Johnson MD LENS: [employer]ry[employer] IQ BLOOD OR BLOOD BANK TECHNICIAN: Leonardo MODEL: [id number] POWER: + 14.5 ADDITIONAL NOTES: documented in this encounterKettering [facility] [place]08-11-2022 History of Present illness Narrative* Jonathon Johnson MD - 04/12/2022 2:36 PM EDT Assessment [...] CC 20/200 Glare Testing: Visual Function: Allie Rutledge states that the decline in vision from the cataract impedes her abilities as listed in the HPI, as well as other activities of daily living. Allie Rutledge has confirmed that she is no longer [...] with lens implantation were discussed with Allie Rutledge in detail. she appeared to understand and [...] others. I have seen and examined Allie Rutledge. I have discussed the case and the management of this patient's care with the Resident/Fellow, if applicable. I also have reviewed and agree with the assessment and plan as stated above and agree withall of its relevant components. Jonathon Johnson MD documented in this encounterKettering [facility] [place]08-02-2022 Instructions* Patient Instructions* Jonathon Johnson MD - 04/03/2022 12:34 PM EDT Images from the original note were not included. documented in this encounterKettering [facility] [place]08-02-2022 History of Present illness Narrative* Jonathon Johnson MD - 04/03/2022 12:19 PM EDT Assessment [...] CC 20/200 Glare Testing: Visual Function: Allie Rutledge states that the decline in vision from the cataract impedes her abilities as listed in the HPI, as well as other activities of daily living. Allie Rutledge has confirmed that she is no longer [...] with lens implantation were discussed with Allie Rutledge in detail. she appeared to understand and [...] others. I have seen and examined Allie Rutledge. I have discussed the case and the management of this patient's care with the Resident/Fellow, if applicable. I also have reviewed and agree with the assessment and plan as stated above and agree withall of its relevant components. Jonathon Johnson MD documented in this encounterKettering [facility] [place]07-26-2022 History of Present illness Narrative* Cynthia Ramos [...] and body rash (no symptoms with alphagan-P) ALHAIJ allergy Dorzolamide-timolol dermatitis body rash Currently using emycin ointment bedtime OD Refresh as needed Testing -- HVF 04/07/2019 OD central scotoma; OS cecocentral scotoma, not centered, low reliability -- OCT 03/10/2019 OD mod sup>mild inf thinning, temp artifact; OS mild sup/inf thinning -- GCA 03/10/2019 thinning OU/retinal atrophy (H40.0314) Primary open angle glaucoma (POAG) of both eyes, indeterminate stage (primary encounter diagnosis) Comment: 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 H/o Steroid response; multiple gtt allergies. S/p TBX OU IOP low; andersen today show central scotoma that appears expanded and shifted; difficult to compare to previous due to low reliability Unlikely that glaucoma will progress at low IOP with a filter in each eye Right visual decline likely from cataract progression - OK to proceed as Dr. 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 Johnson who has been discussing surgical reduction of [...] Plan: Monitor IOP surgically controlled F/u Dr. Johnson as planned (H18.49) Corneal dellen of left [...] (H52.7) Refractive error Comment: Myopia, patient has clinical rehab liaison Plan: Wait on new specs for now RTC 3 months VaTa or sooner if needed post-op I have confirmed and edited as necessary the relevant ophthalmic history, ROS, and the neuro exam findings as obtained by others. I have seen and examined this patient. I have discussed the case and the management of this patient's care with the Resident/Fellow/Superintendent Power, if applicable. I also have reviewed and agree with the assessment and plan as stated above and agree with all of its relevant components. Cynthia Ramos MD April 03, 2022 5:22 PM documented in this encounterKettering [facility] [place]07-13-2022 History of Present illness Narrative* Jonathon Johnson MD - 03/14/2022 12:30 PM EDT Assessment [...] others. I have seen and examined Allie Rutledge. I have discussed the case and the management of this patient's care with the Resident/Fellow, if applicable. I also have reviewed and agree with the assessment and plan as stated above and agree withall of its relevant components. Jonathon Johnson MD documented in this encounterKettering Health [place]07-01-2022 Miscellaneous Notes* Telephone Encounter - Janet Rivero [...] to keep her 03/14/[address] Johnson Patient voiced understanding and states that everything is going well. Janet Rivero RN March 02, 2022 10:47 AM * Telephone Encounter - Kan Nielson - 03/02/2022 10:29 AM EDT The patient reports that her bloodwork came back negative and was asking if she needed to do anything further as she received a recent diagnosis of a corneal ulcer from Dr. Johnson. Please advise. documented in this encounterKettering Health [place]06-28-2022 History of Present illness Narrative* Jonathon Johnson MD - 02/27/2022 3:17 PM EDT Assessment [...] others. I have seen and examined Allie Rutledge. I have discussed the case and the management of this patient's care with the Resident/Fellow, if applicable. I also have reviewed and agree with the assessment and plan as stated above and agree withall of its relevant components. Jonathon Johnson MD documented in this encounterKettering [facility] [place]06-11-2022 Miscellaneous Notes* Telephone Encounter - Aleksandra Min LPN - 02/10/2022 11:58 AM EDT Patient notified on mychart. * Telephone Encounter - Lowell Kelly APRN.CNP - 02/10/2022 11:20 AM EDT No growth for urine culture. If symptoms persist then follow up with PCP Please notify thank you documented in this encounterKettering [facility] [place]06-10-2022 Miscellaneous Notes* Telephone Encounter - Mary Goodwin Pss - 02/09/2022 10:05 AM EDT Pharmacy verified in [facility] Patient has been identified by name and [...] advise. Mary Goodwin Pss documented in this encounterKettering Health [place]06-09-2022 Miscellaneous Notes* Telephone Encounter - Janet Rivero RN - 02/08/2022 11:30 AM EDT Received call from patient. Reviewed the options available for [employer]. Patient states due to being on disability she is unable to pay out of pocket for the medication. Asks that I inform Dr. Johnson that she wishes to discuss lid surgery further. Thanked us for looking into the medication for her. Janet Rivero, RN February 08, 2022 11:32 AM * Telephone Encounter - Janet Rivero RN - 02/08/2022 9:47 AM EDT Left message for patient to call office to obtain information below. Janet Rivero RN February 08, 2022 9:48 AM * Telephone Encounter - Janet Rivero RN - 02/08/2022 8:55 AM EDT Obtained information concerning Upneeq. It is not covered by most insurance companies. [employer] offers pricing of over $200.00 for all Pharmacies. [employer] does NOT cover it. The erp implementation consultant of [employer] recommends using an on-line Pharmacy, [facility]. They DO NOT submit to [...] that she can use? documented in this encounterKet[facility] [place]05-13-2022 Miscellaneous Notes* Telephone Encounter - Mary Tamez RN - 01/12/2022 10:46 AM EDT Patient last seen for annual exam on 12/04/21. Needs a new RX for Prempro. Out of refills. RX pending. Pending Prescriptions Disp Refills CONJ ESTROGEN-MEDROXYPROGESTERONE 0.45 MG-1.5 MG TABLET 84 tablet 2 Sig: Take 1 tablet by mouth once daily. WALTER: No Mary Tamez RN documented in this encounterKettering Health [place]04-25-2022 History of Present illness Narrative* Ifeoma Davis MD - 12/25/2021 1:17 PM EDT Reason for Visit Patient presents with: Established Patient: follow up- needs MRA per and discuss meds,H/A's Allie Rutledge is a 51 year old female who [...] (RIGHT EYE) Right 10/26/2021 S [place] [id number] FAMILY HISTORY Problem Relation Age of Onset Heart Father Age 61 Heart Maternal Grandfather Cancer Paternal Grandmother Breast Cancer Maternal Aunt 55 ovarian cancer Heart Son AL Ovarian cancer Maternal Grandmother Glaucoma No Family [...] IVCON Ifeoma Davis MD documented in this encounterKettering Health [place]04-19-2022 History of Present illness Narrative* Cynthia Ramos [...] from large superior iridectomy - saw Dr. Johnson who discussed various options including cornea tatoo Cleared from my standpoint to pursue intervention with Dr. Johnson as sees fit Plan: Monitor without topical therapy Continue emiliano glasses for glare OK to use diclofenac 2 x daily as needed for eye ache OK to use refresh in both eyes as often as needed (H40.1433) Primary open angle glaucoma (POAG) of both [...] (H52.7) Refractive error Comment: Myopia, patient has clinical rehab liaison; happy with new glasses Plan: f/u as planned RTC 3 months HVF 24-2 OU VaTa F/u Dr. Johnson to discuss options for positive dysphotopsia I have confirmed and edited as necessary the relevant ophthalmic history, ROS, and the neuro exam findings as obtained by others. I have seen and examined this patient. I have discussed the case and the management of this patient's care with the Resident/Fellow/Superintendent Power, if applicable. I also have reviewed and agree with the assessment and plan as stated above and agree with all of its relevant components. Cynthia Ramos MD December 19, 2021 2:17 PM documented in this encounterKettering [facility] [place]04-11-2022 Miscellaneous Notes* Telephone Encounter - Dara Valdez [...] patient * Telephone Encounter - David Anna APRN.DEBORAH - 12/07/2021 4:00 PM EDT Patient will [...] order due to vertigo. documented in this encounterKettering Health [place]04-04-2022 History of Present illness Narrative* Destiney Pendleton APRN.CNP - 12/04/2021 1:06 PM EDT Allie [...] L3 SAB0 IAB0 Ectopic0 Multiple0 Live Births0 Statistical Secretary History LMP: Ablation Age at Menarche: Age at First : Age at Menopause: Statistical Secretary History Comments: Sexual Activity: Not Asked; Male [...] (RIGHT EYE) Right 10/26/2021 S [place] [id number] FAMILY HISTORY Problem Relation Age of Onset Heart Father Age 61 Heart Maternal Grandfather Cancer Paternal Grandmother Breast Cancer Maternal Aunt 55 ovarian cancer Heart Son AL Ovarian cancer Maternal Grandmother Glaucoma No Family [...] external genitalia normal, normal Bartholin's glands, urethra, [place]'s glands, no vulvar lesions, no cervical lesions, [...] one year or sooner as needed Destiney Pendleton APRN.TALENT MANAGER [facility] History of Present illness Narrative* Cynthia Ramos [...] dysphotopsia from large superior iridectomy - Dr. 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 Johnson offered trial of painted CL, cornea tatoo, [...] as needed No rubbing eyes Update Mrx (H41.9594) Primary open angle glaucoma (POAG) of both [...] management of this patient's care with the Resident/Fellow/Superintendent Power, if applicable. I also have reviewed and agree with the assessment and plan as stated above and agree with all of its relevant components. Cynthia Ramos MD December 03, 2021 3:53 PM [facility] Diagnosis Follow-up exam- Primary Unspecified follow-up examination [facility] Diagnosis Encounter for gynecological examination (general) (routine) without abnormal findings- Primary Encounter for screening mammogram for breast cancer documented in this encounter [facility] note* Diagnosis Follow-up exam- Primary Unspecified follow-up examination Photopsia Other visual distortions and entoptic phenomena 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 [facility]* Diagnosis 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 Vertigo Dizziness and giddiness Memory deficits Memory loss New daily persistent headache Chronic mixed headache syndrome Other headache syndromes [facility] Diagnosis 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 injury Post-traumatic headache, unspecified [facility] Photopsia- Primary Other visual distortions and entoptic phenomena Primary open angle glaucoma (POAG) of both eyes, indeterminate stage Combined form of age-related cataract, 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 Marginal corneal ulcer [facility] Diagnosis Photopsia- Primary Other visual distortions and entoptic phenomena Primary open angle glaucoma (POAG) of both eyes, indeterminate stage Combined form of age-related cataract, 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 Marginal corneal ulcer 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 [facility] Diagnosis Medication management Encounter for long-term (current) use of other medications [facility] Diagnosis Photopsia- Primary Other visual distortions and entoptic phenomena Combined 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 cataract of both eyes Other and combined forms of senile cataract Primary open angle glaucoma (POAG) of both eyes, indeterminate stage Combined form of age-related cataract, both eyes [facility] Diagnosis Primary open angle glaucoma (POAG) of both eyes, indeterminate stage- Primary Corneal dellen of left eye Nuclear senile cataract of right eye [facility] Diagnosis Combined 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- Primary Other and combined forms of senile cataract Combined 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 cataract of left eye Other and combined forms of senile cataract [facility] Diagnosis Pain in both hands- Primary Trigger middle finger of left hand Trigger finger (acquired) Trigger ring finger of right hand Trigger finger (acquired) Combined 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 Other and combined forms of senile cataract Photopsia Other visual distortions and entoptic phenomena [facility] Diagnosis 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 Obesity, Class I, BMI 30-34.9 Obesity, unspecified Combined 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 Other and combined forms of senile cataract Photopsia Other visual distortions and entoptic phenomena [facility] Diagnosis Combined 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 Other and combined forms of senile cataract Photopsia Other visual distortions and entoptic phenomena [facility] Diagnosis Pseudophakia- Primary Lens replaced by other means [facility]* Diagnosis Acute cough- Primary [facility]* Diagnosis Photopsia- Primary Other visual distortions and entoptic phenomena Pseudophakia, right eye Lens replaced by other means Combined 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 cataract, left eye Primary open angle glaucoma (POAG) of both eyes, indeterminate stage 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 [facility] Diagnosis Pseudophakia, right eye- Primary Lens replaced by other means [facility] Diagnosis Pseudophakia, right eye- Primary Lens replaced by other means [facility]* Diagnosis Functional dyspepsia Dyspepsia and other specified disorders of function of stomach Nausea Nausea alone [facility]* Diagnosis 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 injury Post-traumatic headache, unspecified [facility]* Diagnosis Blindness right eye category 3, blindness left eye category 4- Primary Pseudophakia, right eye Lens replaced by other means Combined 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 cataract, left eye Hyperopia of right eye [facility]* Diagnosis Blindness right eye category 3, blindness left eye category 4- Primary Difficulty with household tasks Impaired mobility and personal care Personal care impairment Other specified conditions influencing health status Complaints of difficulty with reading Developmental reading disorder, unspecified [facility]* Diagnosis Annual physical exam- Primary Routine general medical examination at a health care facility [facility]* Diagnosis Abnormal mammogram- Primary Abnormal mammogram, unspecified [facility]* Diagnosis Pain in both hands- Primary [facility]* Diagnosis Trigger ring finger of right hand- Primary Trigger finger (acquired) Trigger middle finger of left hand Trigger finger (acquired) Trigger ring finger of right hand Trigger finger (acquired) Trigger middle finger of left hand Trigger finger (acquired) [facility]* Diagnosis Nuclear senile cataract of left eye- Primary Primary open angle glaucoma (POAG) of left eye, severe stage Trigger ring finger of right hand Trigger finger (acquired) Trigger middle finger of left hand Trigger finger (acquired) [facility]* Diagnosis Gastroesophageal reflux disease with [...] eye, severe stage [facility]* Diagnosis Difficulty with household tasks- [...] eye, severe stage [facility]* Diagnosis Trigger ring finger of right hand- Primary Trigger finger (acquired) Trigger middle finger of left hand Trigger finger (acquired) Trigger ring finger of right hand Trigger finger (acquired) Trigger middle finger of left hand Trigger finger (acquired) Nuclear senile cataract of left eye Primary open angle glaucoma (POAG) of left eye, severe stage [facility]* Diagnosis Nuclear sclerotic cataract of left eye- Primary Senile nuclear sclerosis Trigger ring finger of right hand Trigger finger (acquired) Trigger middle finger of left hand Trigger finger (acquired) Nuclear senile cataract of left eye Primary open angle glaucoma (POAG) of left eye, severe stage [facility]* Diagnosis Blindness right eye category [...] eye, severe stage [facility]* Diagnosis Follow-up exam- Primary Unspecified follow-up examination [facility] Diagnosis Trigger ring finger of right hand- Primary Trigger finger (acquired) Trigger middle finger of left hand Trigger finger (acquired) [facility]* Diagnosis Follow-up exam- Primary Unspecified follow-up examination [facility]* Diagnosis Follow-up exam- Primary Unspecified follow-up examination Vitreous prolapse of left eye Vitreous prolapse [facility] noteNo assessment information availableWRegency [facility] Work Phone: Evaluation note* Diagnosis Secondary glaucoma, indeterminate stage, 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 Pseudophakia of both eyes Lens replaced by other means [facility]* Diagnosis Gastroesophageal reflux disease, unspecified whether esophagitis present- Primary Change in bowel habits Other symptoms involving digestive system [facility]* Diagnosis Legally blind- Primary Legal blindness, as defined in [place] [facility]* Diagnosis Numbness and tingling in right hand- Primary Disturbance of skin sensation [facility]* Diagnosis Trigger finger, unspecified finger, unspecified laterality [facility]* Diagnosis Abnormal mammogram Abnormal mammogram, unspecified [facility]* Diagnosis Pain in both hands [facility]* Diagnosis Abnormal mammogram Abnormal mammogram, unspecified [facility]* Diagnosis Encounter for screening mammogram for breast cancer [facility]* Diagnosis Secondary glaucoma, indeterminate stage, 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 [facility]* Diagnosis Encounter for screening mammogram for breast cancer [facility]* Diagnosis Trigger finger, unspecified finger, unspecified laterality [facility]* Diagnosis Bacterial sinusitis- Primary Unspecified sinusitis (chronic) documented in this encounter [facility] note* Diagnosis Onset Date Resolution Status Injury of right rotator cuff acute [facility] Work Phone: Evaluation note* Diagnosis Encounter for gynecological examination (general) (routine) without abnormal findings- Primary Encounter for screening for human papillomavirus (HPV) Special screening examination for human papillomavirus (HPV) Pap smear for cervical cancer screening Screening for malignant neoplasm of the cervix Encounter for screening mammogram for breast cancer documented in this encounter [facility] note* Diagnosis 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 injury Post-traumatic headache, unspecified documented in this encounter [facility] note* Diagnosis Secondary glaucoma, indeterminate stage, 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 Pseudophakia of both eyes Lens replaced by other means Legally blind Legal blindness, as defined in [place] documented in this encounter [facility] note* Diagnosis Hypertension Unspecified essential hypertension Mixed hyperlipidemia Medication management Encounter for long-term (current) use of other medications documented in this encounter [facility] note* Diagnosis Annual wellness visit- Primary Headaches [...] [place] Mixed hyperlipidemia documented in this encounter [facility] note* Diagnosis Allergic contact dermatitis due to plants, except food- Primary Contact dermatitis and other eczema due to plants (except food) documented in this encounter [facility] note* Diagnosis Establishing care with new doctor, [...] Post-traumatic headache, unspecified documented in this encounter [facility] note* Diagnosis Establishing care with new doctor, [...] involving digestive system documented in this encounter [facility] note* Diagnosis Legally blind- Primary Legal blindness, as defined in [place] 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 Trigger finger, unspecified finger, unspecified laterality Mixed hyperlipidemia Primary hypertension Unspecified essential hypertension Swelling of both hands Gastroesophageal reflux disease with esophagitis, unspecified whether hemorrhage documented in this encounter [facility] note* Diagnosis Establishing care with new doctor, [...] Other screening mammogram documented in this encounter [facility] note* Diagnosis Establishing care with new doctor, [...] anomaly of skin [facility]* Diagnosis Establishing care with new doctor, [...] unspecified whether hemorrhage documented in this encounter [facility] note* Diagnosis Establishing care with new doctor, [...] COVID-19 virus- Primary documented in this encounter [facility] note* Diagnosis Establishing care with new doctor, [...] Vitamin D deficiency Unspecified vitamin D deficiency ADYSI (obstructive sleep apnea)- Primary Obstructive sleep apnea (adult) (pediatric) [facility]* Diagnosis Establishing care with new doctor, [...] anomaly of skin [facility] Diagnosis Establishing care with new [...] to menopause- Primary [facility]* Diagnosis Establishing care with new doctor, [...] Other sleep disturbances [facility] Diagnosis Establishing care with new [...] Insomnia, unspecified type documented in this encounter [facility] note* Diagnosis Establishing care with new doctor, [...] unspecified depression type documented in this encounter [facility] note* Diagnosis Establishing care with new doctor, [...] streaks of choroid documented in this encounter [facility] note* Diagnosis Establishing care with new doctor, [...] streaks of choroid documented in this encounter [facility] note* Diagnosis Establishing care with new doctor, [...] for breast cancer documented in this encounter [facility] note* Diagnosis Establishing care with new doctor, [...] anomaly of skin [facility]* Diagnosis Establishing care with new doctor, [...] site not specified [facility] Diagnosis Establishing care with new [...] unspecified Other fatigue documented in this encounter [facility] note* Diagnosis Establishing care with new doctor, [...] apnea (adult) (pediatric) documented in this encounter [facility] note* Diagnosis Establishing care with new doctor, [...] Hypokalemia- Primary Hypopotassemia [facility]* Diagnosis Establishing care with new doctor, [...] unspecified type- Primary [facility]* Diagnosis Establishing care with new doctor, [...] apnea (adult) (pediatric) documented in this encounter [facility] note* Diagnosis Establishing care with new doctor, [...] deficiency Mixed hyperlipidemia documented in this encounter [facility] note* Diagnosis Establishing care with new doctor, [...] Legally blind Legal blindness, as defined in [facility] Sleep apnea, unspecified type documented in this encounter [facility] note* Diagnosis Establishing care with new doctor, [...] Unspecified essential hypertension documented in this encounter [facility] note* Diagnosis Establishing care with new doctor, [...] of left eye documented in this encounter [facility] note* Diagnosis Establishing care with new doctor, [...] unspecified single disease documented in this encounter [facility] note* Diagnosis Establishing care with new doctor, [...] unspecified single disease [facility] Diagnosis Establishing care with new doctor, [...] deficiency Mixed hyperlipidemia [facility] Diagnosis Establishing care with new [...] Other specified complications documented in this encounter [facility] note* Diagnosis Establishing care with new doctor, [...] 126/82 11/18/2023 124/72 [facility] Diagnosis Establishing care with new doctor, [...] glaucoma surgery- Primary [facility] Diagnosis Establishing care with new doctor, [...] Insomnia, unspecified type documented in this encounter [facility] note* Diagnosis Establishing care with new doctor, [...] following other surgery documented in this encounter [facility] note* Diagnosis Establishing care with new doctor, [...] of unspecified site [facility] Diagnosis Establishing care with new doctor, [...] plants (except food) [facility] Diagnosis Establishing care with new doctor, [...] indeterminate stage, bilateral [facility] Diagnosis Establishing care with new doctor, [...] specified erythematous condition [facility] Diagnostic Procedure Only (Routine) - Pending Review Specialty Diagnoses / Procedures Referred By Shiraz t Referred To Contact [facility] Diagnoses Encounter for screening mammogram for breast cancer Procedures GENOVEVA SCREENING SCREENING MAMMOGRAPHY BI 2-VIEW BREAST INC Destiney Proctor, MURTAZA.TALENT MANAGER [address] [place] [address] [facility] [address] [place] [address] Referral ID Status Reason Start Date Expiration Date Visits Requested Visits Authorized [id number] Pending Review Auto-Generat ed Referral 12/04/2021 01/03/2023 1 1 [facility] for referral (narrative)* Outpatient Procedure (Routine) - Pending Review Specialty Diagnoses / Procedures Referred By Contac t Referred To Contact [facility] Diagnoses Pain in both hands Procedures EMG(NEURO/NI) NERVE CONDUCTION STUDIES 9-10 STUDIES Massimo Hicks MD [address] [place] [address] [facility] [place] [address] [place] [id number] Referral ID Status Reason Start Date Expiration Date Visits Requested Visits Authorized [id number] Pending Review Auto-Generat ed Referral 05/03/2022 05/03/2023 1 1 [facility] for referral (narrative)* Outpatient Procedure (Routine) - Pending Review Specialty Diagnoses / Procedures [facility] Diagnoses PXE (pseudoxanthoma elasticum) Procedures ECHO ECHO TTHRC R-T 2D W/WOM-MODE COMPL SPEC&COLR D Charlene Grossman MD [address] [place] [address] [facility] [address] [place] [address] Referral ID Status Reason Start Date Expiration Date Visits Requested Visits Authorized [id number] Pending Review Auto-Generat ed Referral 2 06/20/2023 1 1 [facility] for referral (narrative)* Diagnostic Procedure Only (Routine) - Pending Review Specialty Diagnoses / Procedures [facility] Diagnoses Abnormal mammogram Procedures GENOVEVA DIAGNOSTIC RT DIAGNOSTIC MAMMOGRAPHY COMPUTER-AIDED DETCJ Destiney Cortez APRN.CNP [address] [place] [address] [facility] [address] [place] [address] Referral ID Status Reason Start Date Expiration Date Visits Requested Visits Authorized [id number] Pending Review Auto-Generat ed Referral 09/28/2022 10/28/2023 1 1 * Diagnostic Procedure Only (Routine) - Pending Review Specialty Diagnoses / Procedures Referred By Contac t Referred To Contact [facility] Diagnoses Abnormal mammogram Procedures US BREAST LTD RT US BREAST UNI REAL TIME WITH IMAGE LIMITED Destiney Pendleton APRN.CNP [address] [place] [address] [facility] [address] [place] [address] Referral ID Status Reason Start Date Expiration Date Visits Requested Visits Authorized [id number] Pending Review Auto-Generat ed Referral 09/28/2022 10/28/2023 1 1 [facility] for referral (narrative)* Diagnostic Procedure Only (Routine) - Closed Specialty Diagnoses / Procedures Referred By Contac t Referred To Contact [facility] Diagnoses Pain in both hands Procedures XR HAND GENERAL 3V PA/LAT/OBL BILATERAL RADEX HAND MINIMUM 3 VIEWS Massimo Hicks MD [address] [place] [address] X[facility] Imaging Referral ID Status Reason Start Date Expiration Date V isits Requested Visits Authorized [id number] Closed Auto-Generate d Referral 10/01/2022 10/31/2023 1 1 [facility] for referral (narrative)* Outpatient Procedure (Routine) - Authorized Specialty Diagnoses / Procedures Referred By Contac t Referred To Contact [facility] Diagnoses Change in bowel habits Procedures COLONOSCOPY DIAGNOSTIC COLONOSCOPY FLX DX W/COLLJ SPEC WHEN PFRMD Cande Pozo, JAZZMINE [address] [place] [address] [facility] [place] [address] [place] [address] Referral ID Status Reason Start Date Expiration Date Visits Requested Visits Authorized [id number] Authorized Auto-Generat ed Referral 04/30/2023 04/30/2024 1 1 * Outpatient Procedure (Routine) - Authorized Specialty Diagnoses / Procedures Referred By Contac t Referred To Contact [facility] Diagnoses Gastroesophageal reflux disease, unspecified whether esophagitis present Procedures EGD DIAGNOSTIC ESOPHAGOGASTRODUODENOSC OPY TRANSORAL DIAGNOSTIC Cande Pozo PA-C [address] [facility] [place] [address] [place] [id number] Referral ID Status Reason Start Date Expiration Date Visits Requested Visits Authorized [id number] Authorized Auto-Generat ed Referral 04/30/2023 04/30/2024 1 1 [facility] for referral (narrative)* Outpatient Procedure (Routine) - Pending Review Specialty Diagnoses / Procedures Referred By Contac t Referred To Contact [facility] Diagnoses Numbness and tingling in right hand Procedures EMG(NEURO/NI) NERVE CONDUCTION STUDIES 9-10 STUDIES Massimo Hicks MD [address] [place] [address] [facility] [place] [address] [place], [place] [id number] Referral ID Status Reason Start Date Expiration Date Visits Requested Visits Authorized [id number] Pending Review Auto-Generat ed Referral 04/25/2023 04/25/2024 1 1 [facility] for referral (narrative)* Diagnostic Procedure Only (Routine) - Closed Specialty Diagnoses / Procedures Referred By Contac t Referred To Contact BR IMAGING Diagnoses Abnormal mammogram Procedures US BREAST LTD RT US BREAST UNI REAL TIME WITH IMAGE LIMITED Destiney Pendleton APRN.TALENT MANAGER [address] [place] [address] [facility] Imaging [address] [place] [address] Referral ID Status Reason Start Date Expiration Date V isits Requested Visits Authorized [id number] Closed Auto-Generate d Referral 09/28/2022 10/28/2023 1 1 [facility] for referral (narrative)* Diagnostic Procedure Only (Routine) - Closed Specialty Diagnoses / Procedures Referred By Contac t Referred To Contact XR IMAGING Diagnoses Pain in both hands Procedures XR HAND GENERAL 3V PA/LAT/OBL BILATERAL RADEX HAND MINIMUM 3 VIEWS Massimo Hicks MD [address] [place] [address] [place] [id number] Referral ID Status Reason Start Date Expiration Date V isits Requested Visits Authorized [id number] Closed Auto-Generate d Referral 10/01/2022 10/31/2023 1 1 [facility] for referral (narrative)* Diagnostic Procedure Only (Routine) - Closed Specialty Diagnoses / Procedures Referred By Contac t Referred To Contact BR IM[facility] Diagnoses Encounter for screening mammogram for breast cancer Procedures GENOVEVA SCREENING SCREENING MAMMOGRAPHY BI 2-VIEW BREAST INC [facility] Destiney Pendleton APRN.CNP [address] [place] [address] [facility] Imaging [address] [place] [address] Referral ID Status Reason Start Date Expiration Date V isits Requested Visits Authorized [id number] Closed Auto-Generate d Referral 09/05/2022 09/01/2023 1 1 [facility] for referral (narrative)* Diagnostic Procedure Only (Routine) - Pending Review Specialty Diagnoses / Procedures Referred By Contac t Referred To Contact BR IMAG[facility] Diagnoses Encounter for gynecological examination (general) (routine) without abnormal findings Encounter for screening mammogram for breast cancer Procedures GENOVEVA SCREENING SCREENING MAMMOGRAPHY BI 2-VIEW BREAST INC CAD Destiney Pendleton, DINNER C[employer].TALENT MANAGER [address] [place] [address] [facility] [address] [place] [address] Referral ID Status Reason Start Date Expiration Date Visits Requested Visits Authorized [id number] Pending Review Auto-Generat ed Referral 12/24/2023 01/22/2025 1 1 [facility] for referral (narrative)* Outpatient Procedure (Routine) - Closed Specialty Diagnoses / Procedures Referred By Contac t Referred To Contact [facility] Diagnoses Change in bowel habits Procedures COLONOSCOPY DIAGNOSTIC COLONOSCOPY FLX DX W/COLLJ SPEC WHEN PFRMD Cande Pozo PA-C [address] [place] [address] [facility] [address] [address] Referral ID Status Reason Start Date Expiration Date V isits Requested Visits Authorized [id number] Closed Auto-Generate d Referral 04/30/2023 04/30/2024 1 1 * Outpatient Procedure (Routine) - Closed Specialty Diagnoses / Procedures Referred By Contac t Referred To Contact [facility] Diagnoses Gastroesophageal reflux disease, unspecified whether esophagitis present Procedures EGD DIAGNOSTIC ESOPHAGOGASTRODUODENOSC OPY TRANSORAL DIAGNOSTIC Cande Pozo PA-C [address] [place] [address] [facility] [address] [place] [address] Referral ID Status Reason Start Date Expiration Date V isits Requested Visits Authorized [id number] Closed Auto-Generate d Referral 04/30/2023 04/30/2024 1 1 [facility] for referral (narrative)* Diagnostic Procedure Only (Routine) - Authorized Specialty Diagnoses / Procedures Referred By Contac t Referred To Contact [facility] IM[facility] Diagnoses Encounter for screening mammogram for malignant neoplasm of breast Procedures GENOVEVA SCREENING W LILLY SCREENING DIGITAL BREAST TOMOSYNTHESIS BI SCREENING MAMMOGRAPHY BI 2-VIEW BREAST INC CAD Ifeoma Davis MD [address] [place] [address] Br Imaging [address] [place] [address] Referral ID Status Reason Start Date Expiration Date Visits Requested Visits Authorized [id number] Authorized Auto-Generat ed Referral 07/12/2025 1 1 [facility] for referral (narrative)* Outpatient Procedure (Routine) - Closed Specialty Diagnoses / Procedures Referred By Shiraz johnson Referred To Contact [facility] Diagnoses PXE (pseudoxanthoma elasticum) Procedures US CAROTID ARTERIES [facility] DUPLEX SCAN EXTRACRANIAL ART COMPL BI STUDY Ifeoma Davis MD [address] [place] [address] [facility] [place] [address] [place] [address] Referral ID Status Reason Start Date Expiration Date V isits Requested Visits Authorized [id number] Closed Auto-Generate d Referral 05/14/2024 05/14/2025 1 1 [facility] for referral (narrative)No reason for referral information availableWReg[facility] Work Phone: Reason for visit Narrative* Diagnostic Procedure Only (Routine) - Closed Specialty Diagnoses / Procedures Referred By Shiraz johnson Referred To Contact XR IMAGING Diagnoses Pain Procedures XR HAND GENERAL 3V PA/LAT/OBL BILATERAL RADEX HAND MINIMUM 3 VIEWS Massimo Hicks MD [address] [place] [address] [place] [address] Referral ID Status Reason Start Date Expiration Date V isits Requested Visits Authorized [id number] Closed Auto-Generate d Referral 04/20/2022 09/01/2023 1 1 [facility] for visit Narrative* Diagnostic Procedure Only (Routine) - Closed Specialty Diagnoses / Procedures Referred By Shiraz t Referred To Contact BR IMAG[facility] Diagnoses Abnormal mammogram Procedures GENOVEVA DIAGNOSTIC RT DIAGNOSTIC MAMMOGRAPHY COMPUTER-AIDED DETCJ UNI [facility], DINNER COOK.TALENT MANAGER [address] [place] [address] Br Imaging [address] [place] [address] Referral ID Status Reason Start Date Expiration Date V isits Requested Visits Authorized [id number] Closed Auto-Generate d Referral 09/28/2022 10/28/2023 1 1 [facility] for visit Narrative* Diagnostic Procedure Only (Routine) - Closed Specialty Diagnoses / Procedures Referred By Shiraz t Referred To Contact BR IMAGING Diagnoses Encounter for screening mammogram for breast cancer Procedures GENOVEVA SCREENING SCREENING MAMMOGRAPHY BI 2-VIEW BREAST INC [facility], .TALENT MANAGER [address] [facility] [place] [address] Br Imaging [address] [place] [address] Referral ID Status Reason Start Date Expiration Date V isits Requested Visits Authorized [id number] Closed Auto-Generate d Referral 12/10/2022 01/09/2024 1 1 [facility] for visit Narrative* Outpatient Procedure (Routine) - Closed Specialty Diagnoses / Procedures Referred By Shiraz johnson Referred To Contact [facility] Diagnoses Change in bowel habits Procedures COLONOSCOPY DIAGNOSTIC COLONOSCOPY FLX DX W/COLLJ SPEC WHEN PFRMD Cande Pozo PA-C [address] [place] [address] [facility] [place] [address] [place] [address] Referral ID Status Reason Start Date Expiration Date V isits Requested Visits Authorized [id number] Closed Auto-Generate d Referral 04/30/2023 04/30/2024 1 1 [facility] for visit Narrative* Diagnostic Procedure Only (Routine) - Closed Specialty Diagnoses / Procedures Referred By Shiraz t Referred To Contact BR IM[facility] Diagnoses Encounter for gynecological examination (general) (routine) without abnormal findings Encounter for screening mammogram for breast cancer Procedures GENOVEVA SCREENING SCREENING MAMMOGRAPHY BI 2-VIEW BREAST INC CAD [facility], DINNER COOK.TALENT MANAGER [address] [place] [address] Phone: tel: fax: [facility] [address] [place] [address] Referral ID Status Reason Start Date Expiration Date V isits Requested Visits Authorized [id number] Closed Auto-Generate d Referral 12/24/2023 01/22/2025 1 1 [facility] Advance Directives No Advanced Directives Records FoundDocuments on File Type Date Recorded 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 Advance Directive(s) 10/26/2021 12:12 PM Advance Directive(s) 09/14/2021 11:54 AM Advance Directive(s) 06/22/2019 12:39 PM Advance Directive(s) 02/03/2018 1:55 PM Advance Directive(s) 01/30/2018 9:51 AM Documents on File Type Date Recorded 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 Yes May 27, 2025 6:56pm Advance Directives Yes November 24 025 3:06pm Reason for Referral Specialty Diagnoses / Procedures Referred By Contac t Referred To Contact MR IMAGING Diagnoses 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) Vertigo Memory deficits New daily persistent headache Procedures MRI BRAIN WO/W IVCON MRI BRAIN BRAIN STEM W/O W/CONTRAST MATERIAL Ifeoma Davis MD [address] [place] [address] Mr Imaging Referral ID Status Reason Start Date Expiration Date Visits Requested Visits Authorized [id number] Authorized Auto-Generat ed Referral 12/25/2021 01/24/2023 1 1 Specialty Diagnoses / Procedures Referred By Contac t Referred To Contact [facility] Diagnoses Blindness right eye category 3, blindness left eye category 4 Procedures CONSULT TO BUSINESS CONSULTANT OCCUPATIONAL THERAPY [facility] 60 MINS Wolf [place], OD [address] [facility] [address] [place] [address] [facility] [address] [address] Referral ID Status Reason Start Date Expiration Date Visits Requested Visits Authorized [id number] Pending Review Auto-Generat ed Referral 2 08/16/2023 [...] DIRECT PT CONTACT EACH 15 MIN [place] [address] [place] [id number] [facility] [address] [address] Referral ID Status Reason Start Date Expiration Date Visits Requested Visits Authorized [id number] Pending Review PCP Requested Referral Auto-Generate d Referral 09/19/2022 12/18/2022 1 1 Specialty Diagnoses / Procedures Referred By Contac t Referred To Contact Gastroenterology Diagnoses Gastroesophageal reflux disease with esophagitis, unspecified whether hemorrhage Procedures CONSULT TO GASTROENTEROLOGY OFFICE/OUTPATIENT [facility] 60-74 MINUTES Ifeoma Davis MD [address] [place] [address] Referral ID Status Reason Start Date Expiration Date Visits Requested Visits Authorized [id number] Pending Review PCP Requested Referral 10/16/2022 10/16/2023 1 1 Specialty Diagnoses / Procedures Referred By Yunierac t Referred To Contact [facility] Diagnoses Gastroesophageal reflux disease with esophagitis, unspecified whether hemorrhage Procedures ECG COMPLETE ECG ROUTINE ECG W/LEAST 12 LDS W/I&R Ifeoma Davis MD [address] [place] [address] [facility] [place] [address] [place] [address] Referral ID Status Reason Start Date Expiration Date Visits Requested Visits Authorized [id number] Pending Review Auto-Generat ed Referral 10/16/2022 10/16/2023 1 1 Specialty Diagnoses / Procedures Referred By Contac t Referred To Contact [facility] Diagnoses Trigger ring finger of right hand Trigger middle finger of left hand Procedures CONSULT TO BUSINESS CONSULTANT OCCUPATIONAL TH[facility]APY [facility] 60 MINS Taina Patino PA-C [address] [place] [address] [facility] [address] [address] Referral ID Status Reason Start Date Expiration Date Visits Requested Visits Authorized [id number] Pending Review Auto-Generat ed Referral 11/19/2022 11/19/2023 1 1 Specialty Diagnoses / Procedures Referred By Contac t Referred To Contact Destiney Pendleton, DINNER COOK.TALENT MANAGER [address] [place] [address] Referral ID Status Reason Start Date Expiration Date Visits Re quested Visits Authorized [id number] Closed 1 1 Specialty Diagnoses / Procedures Referred By Contac t Referred To Contact Diagnoses 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 injury Calli Gerber, DINNER COOK.TALENT MANAGER [address] [place] [address] Referral ID Status Reason Start Date Expiration Date Visits Re quested Visits Authorized [id number] Closed 1 1 Specialty Diagnoses / Procedures Referred By Contac t Referred To Contact Diagnoses DAYSI (obstructive sleep apnea) 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) Procedures CONSULT TO SLEEP MEDICINE - ADULT OFFICE/OUTPATIENT [facility] 60 MINUTES fIeoma Davis MD [address] [place] [address] Referral ID Status Reason Start Date Expiration Date Visits Requested Visits Authorized [id number] Authorized PCP Requested Referral 07/28/2025 1 1 Specialty Diagnoses / Procedures Referred By Shiraz johnson Referred To Contact Diagnoses Vasomotor symptoms due to menopause Destiney Pendleton APRN.TALENT MANAGER [address] [place] [address] Referral ID Status Reason Start Date Expiration Date V isits Requested Visits Authorized [id number] Authorized 06/16/2024 09/15/2025 1 1 Medications Administered Section Active Administered Medications - up to 3 most recent administrations Medication Order MAR Action Action Date Dose Rate Site fluorescein-benoxinate 0.25-0.4 % 1 Drop (FLURESS) 1 Drop, BOTH EYES, DIRECTED, Starting on Sat02/27/22 at 1500, Until Sat02/28/22 at 025, Administer for applanation tonometry. In the event of a Fluress shortage, administer Hauula-Fluor 1 drop into both eyes as directed [...] Given 06/25/2022 11:25 AM EDT 0.1 mL praonryt-jkfqsizsy-kjsplibhp sone 3.5 mg/g-10,000 unit/g-0.1 % (POLYDEX) X [...] :23pm Spondylolisthesis April 16, 2025 2: 23pm Chief Complaint Admit Date LEFT HIP March 10, 2025 2:26p m Room 1 March 10, 2025 2:43p m LUMBAR SPINE April 16, 2025 2: 23pm RM 2 April 16, 2025 3: 00pm LUMBAR RADICULOPATHY May 07, 2025 4:37pm head injury May 27, 2025 5:05pm Chief Complaint Admit Date LEFT HIP March 10, 2025 2:26p m Room 1 March 10, 2025 2:43p m LUMBAR SPINE April 16, 2025 2: 23pm RM 2 April 16, 2025 3: 00pm LUMBAR RADICULOPATHY May 07, 2025 4:37pm head injury May 27, 2025 5:05pm LUMBAR SPINE June 03, 2025 3: 14pm Reason for Visit Admit Date Degenerative joint disease of left hip J mojgan 2024 2:26pm Greater trochanteric bursitis of left hi p March 10, 2025 2:26pm Lumbar spondylosis March 10, 2025 2:26p m Degenerative scoliosis April 16, 2025 2:23pm Hip arthritis April 16, 2025 2: 23pm Lumbar radiculopathy April 16, 2025 2 :23pm Spondylolisthesis April 16, 2025 2: 23pm Degenerative scoliosis June 03, 2025 3:14pm Hip arthritis June 03, 2025 3: 14pm Lumbar radiculopathy June 03, 2025 3 :14pm Spondylolisthesis June 03, 2025 3: 14pm Chief Complaint Admit Date LEFT HIP March 10, 2025 2:26p m Room 1 March 10, 2025 2:43p m LUMBAR SPINE April 16, 2025 2: 23pm RM 2 April 16, 2025 3: 00pm LUMBAR RADICULOPATHY May 07, 2025 4:37pm head injury May 27, 2025 5:05pm LUMBAR SPINE June 03, 2025 3: 14pm LEFT HIP June 04, 2025 10 :59am Room 3 June 04, 2025 11 :43am Reason for Visit Admit Date Degenerative joint disease of left hip J mojgan 2024 2:26pm Greater trochanteric bursitis of left hi p March 10, 2025 2:26pm Lumbar spondylosis March 10, 2025 2:26p m Degenerative scoliosis April 16, 2025 2:23pm Hip arthritis April 16, 2025 2: 23pm Lumbar radiculopathy April 16, 2025 2 :23pm Spondylolisthesis April 16, 2025 2: 23pm Degenerative scoliosis June 03, 2025 3:14pm Hip arthritis June 03, 2025 3: 14pm Lumbar radiculopathy June 03, 2025 3 :14pm Spondylolisthesis June 03, 2025 3: 14pm Degenerative joint disease of left hip O ctober 2024 10:59am Additional Source Comments Source Comments (unrecognize d section and content) In the event this informatio n is protected by the Federal Confidentiality of Alcohol and Drug Abuse Patient Records regulations: The Federal rules restrict any use of the information to criminally investigate or prosecute any alcohol or drug abuse patient.[facility] the event this information is protected by the Federal Confidentiality of Alcohol and Drug Abuse Patient Records regulations: The Federal rules restrict any use of the information to criminally investigate or prosecute any alcohol or drug abuse patient.[facility] the event this information is protected by the Federal Confidentiality of Alcohol and Drug Abuse Patient Records regulations: The Federal rules restrict any use of the information to criminally investigate or prosecute any alcohol or drug abuse patient.[facility] the event this information is protected by the Federal Confidentiality of Alcohol and Drug Abuse Patient Records regulations: The Federal rules restrict any use of the information to criminally investigate or prosecute any alcohol or drug abuse patient.[facility]burg[facility] the event this information is protected by the Federal Confidentiality of Alcohol and Drug Abuse Patient Records regulations: The Federal rules restrict any use of the information to criminally investigate or prosecute any alcohol or drug abuse patient.[facility]burg[facility] the event this information is protected by the Federal Confidentiality of Alcohol and Drug Abuse Patient Records regulations: The Federal rules restrict any use of the information to criminally investigate or prosecute any alcohol or drug abuse patient.[facility]burg[facility] the event this information is protected by the Federal Confidentiality of Alcohol and Drug Abuse Patient Records regulations: The Federal rules restrict any use of the information to criminally investigate or prosecute any alcohol or drug abuse patient.[facility]burg[facility] the event this information is protected by the Federal Confidentiality of Alcohol and Drug Abuse Patient Records regulations: The Federal rules restrict any use of the information to criminally investigate or prosecute any alcohol or drug abuse patient.[facility]burg[facility] the event this information is protected by the Federal Confidentiality of Alcohol and Drug Abuse Patient Records regulations: The Federal rules restrict any use of the information to criminally investigate or prosecute any alcohol or drug abuse patient.[facility]burg[facility] the event this information is protected by the Federal Confidentiality of Alcohol and Drug Abuse Patient Records regulations: The Federal rules restrict any use of the information to criminally investigate or prosecute any alcohol or drug abuse patient.[facility]In the event this information is protected by the Federal Confidentiality of Alcohol and Drug Abuse Patient Records regulations: The Federal rules restrict any use of the information to criminally investigate or prosecute any alcohol or drug abuse patient.[facility]burg[facility] the event this information is protected by the Federal Confidentiality of Alcohol and Drug Abuse Patient Records regulations: The Federal rules restrict any use of the information to criminally investigate or prosecute any alcohol or drug abuse patient.[facility] the event this information is protected by the Federal Confidentiality of Alcohol and Drug Abuse Patient Records regulations: The Federal rules restrict any use of the information to criminally investigate or prosecute any alcohol or drug abuse patient.[facility] the event this information is protected by the Federal Confidentiality of Alcohol and Drug Abuse Patient Records regulations: The Federal rules restrict any use of the information to criminally investigate or prosecute any alcohol or drug abuse patient.[facility]burg[facility] the event this information is protected by the Federal Confidentiality of Alcohol and Drug Abuse Patient Records regulations: The Federal rules restrict any use of the information to criminally investigate or prosecute any alcohol or drug abuse patient.[facility]burgIn the event this information is protected by the Federal Confidentiality of Alcohol and Drug Abuse Patient Records regulations: The Federal rules restrict any use of the information to criminally investigate or prosecute any alcohol or drug abuse patient.[facility]burgIn the event this information is protected by the Federal Confidentiality of Alcohol and Drug Abuse Patient Records regulations: The Federal rules restrict any use of the information to criminally investigate or prosecute any alcohol or drug abuse patient.[facility]burgIn the event this information is protected by the Federal Confidentiality of Alcohol and Drug Abuse Patient Records regulations: The Federal rules restrict any use of the information to criminally investigate or prosecute any alcohol or drug abuse patient.[facility]burgIn the event this information is protected by the Federal Confidentiality of Alcohol and Drug Abuse Patient Records regulations: The Federal rules restrict any use of the information to criminally investigate or prosecute any alcohol or drug abuse patient.[facility]burgIn the event this information is protected by the Federal Confidentiality of Alcohol and Drug Abuse Patient Records regulations: The Federal rules restrict any use of the information to criminally investigate or prosecute any alcohol or drug abuse patient.[facility]burgIn the event this information is protected by the Federal Confidentiality of Alcohol and Drug Abuse Patient Records regulations: The Federal rules restrict any use of the information to criminally investigate or prosecute any alcohol or drug abuse patient.[facility]burgIn the event this information is protected by the Federal Confidentiality of Alcohol and Drug Abuse Patient Records regulations: The Federal rules restrict any use of the information to criminally investigate or prosecute any alcohol or drug abuse patient.[facility]burgIn the event this information is protected by the Federal Confidentiality of Alcohol and Drug Abuse Patient Records regulations: The Federal rules restrict any use of the information to criminally investigate or prosecute any alcohol or drug abuse patient.[facility]burgIn the event this information is protected by the Federal Confidentiality of Alcohol and Drug Abuse Patient Records regulations: The Federal rules restrict any use of the information to criminally investigate or prosecute any alcohol or drug abuse patient.[facility]In the event this information is protected by the Federal Confidentiality of Alcohol and Drug Abuse Patient Records regulations: The Federal rules restrict any use of the information to criminally investigate or prosecute any alcohol or drug abuse patient.[facility]burgIn the event this information is protected by the Federal Confidentiality of Alcohol and Drug Abuse Patient Records regulations: The Federal rules restrict any use of the information to criminally investigate or prosecute any alcohol or drug abuse patient.[facility] the event this information is protected by the Federal Confidentiality of Alcohol and Drug Abuse Patient Records regulations: The Federal rules restrict any use of the information to criminally investigate or prosecute any alcohol or drug abuse patient.[facility] the event this information is protected by the Federal Confidentiality of Alcohol and Drug Abuse Patient Records regulations: The Federal rules restrict any use of the information to criminally investigate or prosecute any alcohol or drug abuse patient.[facility] the event this information is protected by the Federal Confidentiality of Alcohol and Drug Abuse Patient Records regulations: The Federal rules restrict any use of the information to criminally investigate or prosecute any alcohol or drug abuse patient.[facility]In the event this information is protected by the Federal Confidentiality of Alcohol and Drug Abuse Patient Records regulations: The Federal rules restrict any use of the information to criminally investigate or prosecute any alcohol or drug abuse patient.[facility]In the event this information is protected by the Federal Confidentiality of Alcohol and Drug Abuse Patient Records regulations: The Federal rules restrict any use of the information to criminally investigate or prosecute any alcohol or drug abuse patient.[facility]In the event this information is protected by the Federal Confidentiality of Alcohol and Drug Abuse Patient Records regulations: The Federal rules restrict any use of the information to criminally investigate or prosecute any alcohol or drug abuse patient.[facility]In the event this information is protected by the Federal Confidentiality of Alcohol and Drug Abuse Patient Records regulations: The Federal rules restrict any use of the information to criminally investigate or prosecute any alcohol or drug abuse patient.[facility]In the event this information is protected by the Federal Confidentiality of Alcohol and Drug Abuse Patient Records regulations: The Federal rules restrict any use of the information to criminally investigate or prosecute any alcohol or drug abuse patient.[facility]In the event this information is protected by the Federal Confidentiality of Alcohol and Drug Abuse Patient Records regulations: The Federal rules restrict any use of the information to criminally investigate or prosecute any alcohol or drug abuse patient.[facility]In the event this information is protected by the Federal Confidentiality of Alcohol and Drug Abuse Patient Records regulations: The Federal rules restrict any use of the information to criminally investigate or prosecute any alcohol or drug abuse patient.[facility]In the event this information is protected by the Federal Confidentiality of Alcohol and Drug Abuse Patient Records regulations: The Federal rules restrict any use of the information to criminally investigate or prosecute any alcohol or drug abuse patient.[facility]In the event this information is protected by the Federal Confidentiality of Alcohol and Drug Abuse Patient Records regulations: The Federal rules restrict any use of the information to criminally investigate or prosecute any alcohol or drug abuse patient.[facility] the event this information is protected by the Federal Confidentiality of Alcohol and Drug Abuse Patient Records regulations: The Federal rules restrict any use of the information to criminally investigate or prosecute any alcohol or drug abuse patient.[facility]In the event this information is protected by the Federal Confidentiality of Alcohol and Drug Abuse Patient Records regulations: The Federal rules restrict any use of the information to criminally investigate or prosecute any alcohol or drug abuse patient.[facility]In the event this information is protected by the Federal Confidentiality of Alcohol and Drug Abuse Patient Records regulations: The Federal rules restrict any use of the information to criminally investigate or prosecute any alcohol or drug abuse patient.[facility]In the event this information is protected by the Federal Confidentiality of Alcohol and Drug Abuse Patient Records regulations: The Federal rules restrict any use of the information to criminally investigate or prosecute any alcohol or drug abuse patient.[facility]In the event this information is protected by the Federal Confidentiality of Alcohol and Drug Abuse Patient Records regulations: The Federal rules restrict any use of the information to criminally investigate or prosecute any alcohol or drug abuse patient.[facility]In the event this information is protected by the Federal Confidentiality of Alcohol and Drug Abuse Patient Records regulations: The Federal rules restrict any use of the information to criminally investigate or prosecute any alcohol or drug abuse patient.[facility]In the event this information is protected by the Federal Confidentiality of Alcohol and Drug Abuse Patient Records regulations: The Federal rules restrict any use of the information to criminally investigate or prosecute any alcohol or drug abuse patient.[facility]In the event this information is protected by the Federal Confidentiality of Alcohol and Drug Abuse Patient Records regulations: The Federal rules restrict any use of the information to criminally investigate or prosecute any alcohol or drug abuse patient.[facility]In the event this information is protected by the Federal Confidentiality of Alcohol and Drug Abuse Patient Records regulations: The Federal rules restrict any use of the information to criminally investigate or prosecute any alcohol or drug abuse patient.[facility]In the event this information is protected by the Federal Confidentiality of Alcohol and Drug Abuse Patient Records regulations: The Federal rules restrict any use of the information to criminally investigate or prosecute any alcohol or drug abuse patient.[facility]In the event this information is protected by the Federal Confidentiality of Alcohol and Drug Abuse Patient Records regulations: The Federal rules restrict any use of the information to criminally investigate or prosecute any alcohol or drug abuse patient.[facility]In the event this information is protected by the Federal Confidentiality of Alcohol and Drug Abuse Patient Records regulations: The Federal rules restrict any use of the information to criminally investigate or prosecute any alcohol or drug abuse patient.[facility]In the event this information is protected by the Federal Confidentiality of Alcohol and Drug Abuse Patient Records regulations: The Federal rules restrict any use of the information to criminally investigate or prosecute any alcohol or drug abuse patient.[facility]In the event this information is protected by the Federal Confidentiality of Alcohol and Drug Abuse Patient Records regulations: The Federal rules restrict any use of the information to criminally investigate or prosecute any alcohol or drug abuse patient.[facility]In the event this information is protected by the Federal Confidentiality of Alcohol and Drug Abuse Patient Records regulations: The Federal rules restrict any use of the information to criminally investigate or prosecute any alcohol or drug abuse patient.[facility]In the event this information is protected by the Federal Confidentiality of Alcohol and Drug Abuse Patient Records regulations: The Federal rules restrict any use of the information to criminally investigate or prosecute any alcohol or drug abuse patient.[facility]In the event this information is protected by the Federal Confidentiality of Alcohol and Drug Abuse Patient Records regulations: The Federal rules restrict any use of the information to criminally investigate or prosecute any alcohol or drug abuse patient.[facility]In the event this information is protected by the Federal Confidentiality of Alcohol and Drug Abuse Patient Records regulations: The Federal rules restrict any use of the information to criminally investigate or prosecute any alcohol or drug abuse patient.[facility]In the event this information is protected by the Federal Confidentiality of Alcohol and Drug Abuse Patient Records regulations: The Federal rules restrict any use of the information to criminally investigate or prosecute any alcohol or drug abuse patient.[facility]In the event this information is protected by the Federal Confidentiality of Alcohol and Drug Abuse Patient Records regulations: The Federal rules restrict any use of the information to criminally investigate or prosecute any alcohol or drug abuse patient.[facility]In the event this information is protected by the Federal Confidentiality of Alcohol and Drug Abuse Patient Records regulations: The Federal rules restrict any use of the information to criminally investigate or prosecute any alcohol or drug abuse patient.[facility]In the event this information is protected by the Federal Confidentiality of Alcohol and Drug Abuse Patient Records regulations: The Federal rules restrict any use of the information to criminally investigate or prosecute any alcohol or drug abuse patient.[facility]In the event this information is protected by the Federal Confidentiality of Alcohol and Drug Abuse Patient Records regulations: The Federal rules restrict any use of the information to criminally investigate or prosecute any alcohol or drug abuse patient.[facility]In the event this information is protected by the Federal Confidentiality of Alcohol and Drug Abuse Patient Records regulations: The Federal rules restrict any use of the information to criminally investigate or prosecute any alcohol or drug abuse patient.[facility]In the event this information is protected by the Federal Confidentiality of Alcohol and Drug Abuse Patient Records regulations: The Federal rules restrict any use of the information to criminally investigate or prosecute any alcohol or drug abuse patient.[facility]In the event this information is protected by the Federal Confidentiality of Alcohol and Drug Abuse Patient Records regulations: The Federal rules restrict any use of the information to criminally investigate or prosecute any alcohol or drug abuse patient.[facility]In the event this information is protected by the Federal Confidentiality of Alcohol and Drug Abuse Patient Records regulations: The Federal rules restrict any use of the information to criminally investigate or prosecute any alcohol or drug abuse patient.[facility]In the event this information is protected by the Federal Confidentiality of Alcohol and Drug Abuse Patient Records regulations: The Federal rules restrict any use of the information to criminally investigate or prosecute any alcohol or drug abuse patient.[facility]In the event this information is protected by the Federal Confidentiality of Alcohol and Drug Abuse Patient Records regulations: The Federal rules restrict any use of the information to criminally investigate or prosecute any alcohol or drug abuse patient.[facility]In the event this information is protected by the Federal Confidentiality of Alcohol and Drug Abuse Patient Records regulations: The Federal rules restrict any use of the information to criminally investigate or prosecute any alcohol or drug abuse patient.[facility]In the event this information is protected by the Federal Confidentiality of Alcohol and Drug Abuse Patient Records regulations: The Federal rules restrict any use of the information to criminally investigate or prosecute any alcohol or drug abuse patient.[facility]In the event this information is protected by the Federal Confidentiality of Alcohol and Drug Abuse Patient Records regulations: The Federal rules restrict any use of the information to criminally investigate or prosecute any alcohol or drug abuse patient.[facility]In the event this information is protected by the Federal Confidentiality of Alcohol and Drug Abuse Patient Records regulations: The Federal rules restrict any use of the information to criminally investigate or prosecute any alcohol or drug abuse patient.[facility]In the event this information is protected by the Federal Confidentiality of Alcohol and Drug Abuse Patient Records regulations: The Federal rules restrict any use of the information to criminally investigate or prosecute any alcohol or drug abuse patient.[facility]In the event this information is protected by the Federal Confidentiality of Alcohol and Drug Abuse Patient Records regulations: The Federal rules restrict any use of the information to criminally investigate or prosecute any alcohol or drug abuse patient.[facility]In the event this information is protected by the Federal Confidentiality of Alcohol and Drug Abuse Patient Records regulations: The Federal rules restrict any use of the information to criminally investigate or prosecute any alcohol or drug abuse patient.[facility]In the event this information is protected by the Federal Confidentiality of Alcohol and Drug Abuse Patient Records regulations: The Federal rules restrict any use of the information to criminally investigate or prosecute any alcohol or drug abuse patient.[facility]In the event this information is protected by the Federal Confidentiality of Alcohol and Drug Abuse Patient Records regulations: The Federal rules restrict any use of the information to criminally investigate or prosecute any alcohol or drug abuse patient.[facility]In the event this information is protected by the Federal Confidentiality of Alcohol and Drug Abuse Patient Records regulations: The Federal rules restrict any use of the information to criminally investigate or prosecute any alcohol or drug abuse patient.[facility]In the event this information is protected by the Federal Confidentiality of Alcohol and Drug Abuse Patient Records regulations: The Federal rules restrict any use of the information to criminally investigate or prosecute any alcohol or drug abuse patient.[facility]In the event this information is protected by the Federal Confidentiality of Alcohol and Drug Abuse Patient Records regulations: The Federal rules restrict any use of the information to criminally investigate or prosecute any alcohol or drug abuse patient.[facility]In the event this information is protected by the Federal Confidentiality of Alcohol and Drug Abuse Patient Records regulations: The Federal rules restrict any use of the information to criminally investigate or prosecute any alcohol or drug abuse patient.[facility]In the event this information is protected by the Federal Confidentiality of Alcohol and Drug Abuse Patient Records regulations: The Federal rules restrict any use of the information to criminally investigate or prosecute any alcohol or drug abuse patient.[facility]In the event this information is protected by the Federal Confidentiality of Alcohol and Drug Abuse Patient Records regulations: The Federal rules restrict any use of the information to criminally investigate or prosecute any alcohol or drug abuse patient.[facility]In the event this information is protected by the Federal Confidentiality of Alcohol and Drug Abuse Patient Records regulations: The Federal rules restrict any use of the information to criminally investigate or prosecute any alcohol or drug abuse patient.[facility]In the event this information is protected by the Federal Confidentiality of Alcohol and Drug Abuse Patient Records regulations: The Federal rules restrict any use of the information to criminally investigate or prosecute any alcohol or drug abuse patient.[facility]In the event this information is protected by the Federal Confidentiality of Alcohol and Drug Abuse Patient Records regulations: The Federal rules restrict any use of the information to criminally investigate or prosecute any alcohol or drug abuse patient.[facility]In the event this information is protected by the Federal Confidentiality of Alcohol and Drug Abuse Patient Records regulations: The Federal rules restrict any use of the information to criminally investigate or prosecute any alcohol or drug abuse patient.[facility]In the event this information is protected by the Federal Confidentiality of Alcohol and Drug Abuse Patient Records regulations: The Federal rules restrict any use of the information to criminally investigate or prosecute any alcohol or drug abuse patient.[facility]In the event this information is protected by the Federal Confidentiality of Alcohol and Drug Abuse Patient Records regulations: The Federal rules restrict any use of the information to criminally investigate or prosecute any alcohol or drug abuse patient.[facility]In the event this information is protected by the Federal Confidentiality of Alcohol and Drug Abuse Patient Records regulations: The Federal rules restrict any use of the information to criminally investigate or prosecute any alcohol or drug abuse patient.[facility]In the event this information is protected by the Federal Confidentiality of Alcohol and Drug Abuse Patient Records regulations: The Federal rules restrict any use of the information to criminally investigate or prosecute any alcohol or drug abuse patient.[facility]In the event this information is protected by the Federal Confidentiality of Alcohol and Drug Abuse Patient Records regulations: The Federal rules restrict any use of the information to criminally investigate or prosecute any alcohol or drug abuse patient.[facility]In the event this information is protected by the Federal Confidentiality of Alcohol and Drug Abuse Patient Records regulations: The Federal rules restrict any use of the information to criminally investigate or prosecute any alcohol or drug abuse patient.[facility]In the event this information is protected by the Federal Confidentiality of Alcohol and Drug Abuse Patient Records regulations: The Federal rules restrict any use of the information to criminally investigate or prosecute any alcohol or drug abuse patient.[facility]In the event this information is protected by the Federal Confidentiality of Alcohol and Drug Abuse Patient Records regulations: The Federal rules restrict any use of the information to criminally investigate or prosecute any alcohol or drug abuse patient.[facility]In the event this information is protected by the Federal Confidentiality of Alcohol and Drug Abuse Patient Records regulations: The Federal rules restrict any use of the information to criminally investigate or prosecute any alcohol or drug abuse patient.[facility]In the event this information is protected by the Federal Confidentiality of Alcohol and Drug Abuse Patient Records regulations: The Federal rules restrict any use of the information to criminally investigate or prosecute any alcohol or drug abuse patient.[facility]In the event this information is protected by the Federal Confidentiality of Alcohol and Drug Abuse Patient Records regulations: The Federal rules restrict any use of the information to criminally investigate or prosecute any alcohol or drug abuse patient.[facility]In the event this information is protected by the Federal Confidentiality of Alcohol and Drug Abuse Patient Records regulations: The Federal rules restrict any use of the information to criminally investigate or prosecute any alcohol or drug abuse patient.[facility]In the event this information is protected by the Federal Confidentiality of Alcohol and Drug Abuse Patient Records regulations: The Federal rules restrict any use of the information to criminally investigate or prosecute any alcohol or drug abuse patient.[facility]In the event this information is protected by the Federal Confidentiality of Alcohol and Drug Abuse Patient Records regulations: The Federal rules restrict any use of the information to criminally investigate or prosecute any alcohol or drug abuse patient.[facility]In the event this information is protected by the Federal Confidentiality of Alcohol and Drug Abuse Patient Records regulations: The Federal rules restrict any use of the information to criminally investigate or prosecute any alcohol or drug abuse patient.[facility]In the event this information is protected by the Federal Confidentiality of Alcohol and Drug Abuse Patient Records regulations: The Federal rules restrict any use of the information to criminally investigate or prosecute any alcohol or drug abuse patient.[facility]In the event this information is protected by the Federal Confidentiality of Alcohol and Drug Abuse Patient Records regulations: The Federal rules restrict any use of the information to criminally investigate or prosecute any alcohol or drug abuse patient.[facility]In the event this information is protected by the Federal Confidentiality of Alcohol and Drug Abuse Patient Records regulations: The Federal rules restrict any use of the information to criminally investigate or prosecute any alcohol or drug abuse patient.[facility]In the event this information is protected by the Federal Confidentiality of Alcohol and Drug Abuse Patient Records regulations: The Federal rules restrict any use of the information to criminally investigate or prosecute any alcohol or drug abuse patient.[facility]In the event this information is protected by the Federal Confidentiality of Alcohol and Drug Abuse Patient Records regulations: The Federal rules restrict any use of the information to criminally investigate or prosecute any alcohol or drug abuse patient.[facility]In the event this information is protected by the Federal Confidentiality of Alcohol and Drug Abuse Patient Records regulations: The Federal rules restrict any use of the information to criminally investigate or prosecute any alcohol or drug abuse patient.[facility]In the event this information is protected by the Federal Confidentiality of Alcohol and Drug Abuse Patient Records regulations: The Federal rules restrict any use of the information to criminally investigate or prosecute any alcohol or drug abuse patient.[facility]In the event this information is protected by the Federal Confidentiality of Alcohol and Drug Abuse Patient Records regulations: The Federal rules restrict any use of the information to criminally investigate or prosecute any alcohol or drug abuse patient.[facility]In the event this information is protected by the Federal Confidentiality of Alcohol and Drug Abuse Patient Records regulations: The Federal rules restrict any use of the information to criminally investigate or prosecute any alcohol or drug abuse patient.[facility]In the event this information is protected by the Federal Confidentiality of Alcohol and Drug Abuse Patient Records regulations: The Federal rules restrict any use of the information to criminally investigate or prosecute any alcohol or drug abuse patient.[facility]In the event this information is protected by the Federal Confidentiality of Alcohol and Drug Abuse Patient Records regulations: The Federal rules restrict any use of the information to criminally investigate or prosecute any alcohol or drug abuse patient.[facility] ClinicIn the event this information is protected by the Federal Confidentiality of Alcohol and Drug Abuse Patient Records regulations: The Federal rules restrict any use of the information to criminally investigate or prosecute any alcohol or drug abuse patient.[facility]burgIn the event this information is protected by the Federal Confidentiality of Alcohol and Drug Abuse Patient Records regulations: The Federal rules restrict any use of the information to criminally investigate or prosecute any alcohol or drug abuse patient.[facility]burgIn the event this information is protected by the Federal Confidentiality of Alcohol and Drug Abuse Patient Records regulations: The Federal rules restrict any use of the information to criminally investigate or prosecute any alcohol or drug abuse patient.[facility]burgIn the event this information is protected by the Federal Confidentiality of Alcohol and Drug Abuse Patient Records regulations: The Federal rules restrict any use of the information to criminally investigate or prosecute any alcohol or drug abuse patient.[facility]burgIn the event this information is protected by the Federal Confidentiality of Alcohol and Drug Abuse Patient Records regulations: The Federal rules restrict any use of the information to criminally investigate or prosecute any alcohol or drug abuse patient.[facility]burgIn the event this information is protected by the Federal Confidentiality of Alcohol and Drug Abuse Patient Records regulations: The Federal rules restrict any use of the information to criminally investigate or prosecute any alcohol or drug abuse patient.[facility]burgIn the event this information is protected by the Federal Confidentiality of Alcohol and Drug Abuse Patient Records regulations: The Federal rules restrict any use of the information to criminally investigate or prosecute any alcohol or drug abuse patient.[facility]burgIn the event this information is protected by the Federal Confidentiality of Alcohol and Drug Abuse Patient Records regulations: The Federal rules restrict any use of the information to criminally investigate or prosecute any alcohol or drug abuse patient.[facility]burgIn the event this information is protected by the Federal Confidentiality of Alcohol and Drug Abuse Patient Records regulations: The Federal rules restrict any use of the information to criminally investigate or prosecute any alcohol or drug abuse patient.[facility]burgIn the event this information is protected by the Federal Confidentiality of Alcohol and Drug Abuse Patient Records regulations: The Federal rules restrict any use of the information to criminally investigate or prosecute any alcohol or drug abuse patient.[facility]burgIn the event this information is protected by the Federal Confidentiality of Alcohol and Drug Abuse Patient Records regulations: The Federal rules restrict any use of the information to criminally investigate or prosecute any alcohol or drug abuse patient.[facility]burgIn the event this information is protected by the Federal Confidentiality of Alcohol and Drug Abuse Patient Records regulations: The Federal rules restrict any use of the information to criminally investigate or prosecute any alcohol or drug abuse patient.[facility]burgIn the event this information is protected by the Federal Confidentiality of Alcohol and Drug Abuse Patient Records regulations: The Federal rules restrict any use of the information to criminally investigate or prosecute any alcohol or drug abuse patient.[facility]burgIn the event this information is protected by the Federal Confidentiality of Alcohol and Drug Abuse Patient Records regulations: The Federal rules restrict any use of the information to criminally investigate or prosecute any alcohol or drug abuse patient.[facility]burgIn the event this information is protected by the Federal Confidentiality of Alcohol and Drug Abuse Patient Records regulations: The Federal rules restrict any use of the information to criminally investigate or prosecute any alcohol or drug abuse patient.[facility]burgIn the event this information is protected by the Federal Confidentiality of Alcohol and Drug Abuse Patient Records regulations: The Federal rules restrict any use of the information to criminally investigate or prosecute any alcohol or drug abuse patient.[facility]burgIn the event this information is protected by the Federal Confidentiality of Alcohol and Drug Abuse Patient Records regulations: The Federal rules restrict any use of the information to criminally investigate or prosecute any alcohol or drug abuse patient.[facility]burgIn the event this information is protected by the Federal Confidentiality of Alcohol and Drug Abuse Patient Records regulations: The Federal rules restrict any use of the information to criminally investigate or prosecute any alcohol or drug abuse patient.[facility]burgIn the event this information is protected by the Federal Confidentiality of Alcohol and Drug Abuse Patient Records regulations: The Federal rules restrict any use of the information to criminally investigate or prosecute any alcohol or drug abuse patient.[facility]burgIn the event this information is protected by the Federal Confidentiality of Alcohol and Drug Abuse Patient Records regulations: The Federal rules restrict any use of the information to criminally investigate or prosecute any alcohol or drug abuse patient.[facility]burgIn the event this information is protected by the Federal Confidentiality of Alcohol and Drug Abuse Patient Records regulations: The Federal rules restrict any use of the information to criminally investigate or prosecute any alcohol or drug abuse patient.[facility]burgIn the event this information is protected by the Federal Confidentiality of Alcohol and Drug Abuse Patient Records regulations: The Federal rules restrict any use of the information to criminally investigate or prosecute any alcohol or drug abuse patient.[facility]burgIn the event this information is protected by the Federal Confidentiality of Alcohol and Drug Abuse Patient Records regulations: The Federal rules restrict any use of the information to criminally investigate or prosecute any alcohol or drug abuse patient.[facility]burgIn the event this information is protected by the Federal Confidentiality of Alcohol and Drug Abuse Patient Records regulations: The Federal rules restrict any use of the information to criminally investigate or prosecute any alcohol or drug abuse patient.[facility]burgIn the event this information is protected by the Federal Confidentiality of Alcohol and Drug Abuse Patient Records regulations: The Federal rules restrict any use of the information to criminally investigate or prosecute any alcohol or drug abuse patient.[facility]burgIn the event this information is protected by the Federal Confidentiality of Alcohol and Drug Abuse Patient Records regulations: The Federal rules restrict any use of the information to criminally investigate or prosecute any alcohol or drug abuse patient.[facility]burgIn the event this information is protected by the Federal Confidentiality of Alcohol and Drug Abuse Patient Records regulations: The Federal rules restrict any use of the information to criminally investigate or prosecute any alcohol or drug abuse patient.[facility]burgIn the event this information is protected by the Federal Confidentiality of Alcohol and Drug Abuse Patient Records regulations: The Federal rules restrict any use of the information to criminally investigate or prosecute any alcohol or drug abuse patient.[facility]burgIn the event this information is protected by the Federal Confidentiality of Alcohol and Drug Abuse Patient Records regulations: The Federal rules restrict any use of the information to criminally investigate or prosecute any alcohol or drug abuse patient.[facility]burgIn the event this information is protected by the Federal Confidentiality of Alcohol and Drug Abuse Patient Records regulations: The Federal rules restrict any use of the information to criminally investigate or prosecute any alcohol or drug abuse patient.[facility]burgIn the event this information is protected by the Federal Confidentiality of Alcohol and Drug Abuse Patient Records regulations: The Federal rules restrict any use of the information to criminally investigate or prosecute any alcohol or drug abuse patient.[facility]burgIn the event this information is protected by the Federal Confidentiality of Alcohol and Drug Abuse Patient Records regulations: The Federal rules restrict any use of the information to criminally investigate or prosecute any alcohol or drug abuse patient.[facility]burgIn the event this information is protected by the Federal Confidentiality of Alcohol and Drug Abuse Patient Records regulations: The Federal rules restrict any use of the information to criminally investigate or prosecute any alcohol or drug abuse patient.[facility]burgIn the event this information is protected by the Federal Confidentiality of Alcohol and Drug Abuse Patient Records regulations: The Federal rules restrict any use of the information to criminally investigate or prosecute any alcohol or drug abuse patient.[facility]burgIn the event this information is protected by the Federal Confidentiality of Alcohol and Drug Abuse Patient Records regulations: The Federal rules restrict any use of the information to criminally investigate or prosecute any alcohol or drug abuse patient.[facility]burgIn the event this information is protected by the Federal Confidentiality of Alcohol and Drug Abuse Patient Records regulations: The Federal rules restrict any use of the information to criminally investigate or prosecute any alcohol or drug abuse patient.[facility]burgIn the event this information is protected by the Federal Confidentiality of Alcohol and Drug Abuse Patient Records regulations: The Federal rules restrict any use of the information to criminally investigate or prosecute any alcohol or drug abuse patient.[facility]burgIn the event this information is protected by the Federal Confidentiality of Alcohol and Drug Abuse Patient Records regulations: The Federal rules restrict any use of the information to criminally investigate or prosecute any alcohol or drug abuse patient.[facility]burgIn the event this information is protected by the Federal Confidentiality of Alcohol and Drug Abuse Patient Records regulations: The Federal rules restrict any use of the information to criminally investigate or prosecute any alcohol or drug abuse patient.[facility]burgIn the event this information is protected by the Federal Confidentiality of Alcohol and Drug Abuse Patient Records regulations: The Federal rules restrict any use of the information to criminally investigate or prosecute any alcohol or drug abuse patient.[facility]burgIn the event this information is protected by the Federal Confidentiality of Alcohol and Drug Abuse Patient Records regulations: The Federal rules restrict any use of the information to criminally investigate or prosecute any alcohol or drug abuse patient.[facility]burgIn the event this information is protected by the Federal Confidentiality of Alcohol and Drug Abuse Patient Records regulations: The Federal rules restrict any use of the information to criminally investigate or prosecute any alcohol or drug abuse patient.[facility]burgIn the event this information is protected by the Federal Confidentiality of Alcohol and Drug Abuse Patient Records regulations: The Federal rules restrict any use of the information to criminally investigate or prosecute any alcohol or drug abuse patient.[facility]burgIn the event this information is protected by the Federal Confidentiality of Alcohol and Drug Abuse Patient Records regulations: The Federal rules restrict any use of the information to criminally investigate or prosecute any alcohol or drug abuse patient.[facility]burgIn the event this information is protected by the Federal Confidentiality of Alcohol and Drug Abuse Patient Records regulations: The Federal rules restrict any use of the information to criminally investigate or prosecute any alcohol or drug abuse patient.[facility]burgIn the event this information is protected by the Federal Confidentiality of Alcohol and Drug Abuse Patient Records regulations: The Federal rules restrict any use of the information to criminally investigate or prosecute any alcohol or drug abuse patient.[facility]burgIn the event this information is protected by the Federal Confidentiality of Alcohol and Drug Abuse Patient Records regulations: The Federal rules restrict any use of the information to criminally investigate or prosecute any alcohol or drug abuse patient.[facility]burgIn the event this information is protected by the Federal Confidentiality of Alcohol and Drug Abuse Patient Records regulations: The Federal rules restrict any use of the information to criminally investigate or prosecute any alcohol or drug abuse patient.[facility]burgIn the event this information is protected by the Federal Confidentiality of Alcohol and Drug Abuse Patient Records regulations: The Federal rules restrict any use of the information to criminally investigate or prosecute any alcohol or drug abuse patient.[facility] Reason for Visit (unrecogniz ed section and content) Reason Comments Occupational Therapy OT Progress Note Specialty Diagnoses / Procedures Referred By Contac t Referred To Contact OCCUPATIONAL THERAPY Diagnoses Blindness right eye category 3, blindness left eye category 4 Procedures CONSULT TO BUSINESS CONSULTANT OCCUPATIONAL THERAPY EVAL HIGH COMPLEX 60 MINS Wolf Mason, OD [address] [place] [address] Michelle Perez OT/L Referral ID Status Reason Start Date Expiration Date Visits Requested Visits Authorized [id number] Authorized Auto-Generat ed Referral 09/02/2022 09/01/2023 20 [...] Referred By Shiraz t Referred To Contact Diagnoses Combined forms of [...] IRIS AND CILIARY BODY [facility] [address] [place] [address] Referral ID Status Reason Start Date Expiration Date Visits Re quested Visits Authorized [id number] 1 1 Reason Comments Post-op (Ophthalmology) Right Eye CE/IOL right eye 06/25/22 Reason Comments [employer] 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 Reason Comments Cough Reason Comments [...] Referred By Shiraz t Referred To Contact Occupational Therapy / OCCUPATIONAL THERAPY Diagnoses Blindness right eye category 3, 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, blindness left eye category 4 [H54.0X34] Procedures OFFICE/OUTPATIENT NEW MODERATE MDM 45-59 MINUTES NEW RS OT LOW VISION Wolf Mason, OD [address] [place] [address] Michelle Perez, OT/L Referral ID Status Reason Start Date Expiration Date Visits Re quested Visits Authorized [id number] Closed 09/19/2022 12/18/2022 1 1 Reason Comments Follow Up Phone Call Reason Comments Orders Reason Comments Schedule Surgery Reason Comments Medication Request Reason Comments Mammogram Result Call Back Reason Comments Tearing Left Eye Specialty Diagnoses / Procedures Referred By Contjustine t Referred To Contact Ophthalmology / OPHTHALMOLOGY Diagnoses Follow-up exam 3 month VaTa (r/s 6 wk after cataract surgery wtih Dr. Johnson) Procedures EST ADULT Self Cynthia Ramos MD [address] [place] [address] Referral ID Status Reason Start Date Expiration Date Visits Re quested Visits Authorized [id number] Closed 09/25/2022 12/24/2022 1 1 Reason Comments Physical preop clearance for surgeries on 11/07/22, 11/15/22 Reason Comments Occupational Therapy Reason Comments Established Patient Pain Specialty Diagnoses / Procedures Referred By Contact Referred To Contact [facility] Diagnoses Hand pain Procedures HAND PAIN Self [facility] [address] [place] [address] Referral ID Status Reason Start Date Expiration Date V isits Requested Visits Authorized [id number] Closed OON/Self Pay Override 09/11/2022 09/01/2023 1 [...] UNI REAL TIME WITH IMAGE LIMITED Destiney Pendleton APRN.TALENT MANAGER [address] [place] [address] [facility] [address] [place] [address] Referral ID Status Reason Start Date Expiration Date V isits Requested Visits Authorized [id number] Closed Auto-Generate d Referral 09/28/2022 10/28/2023 1 1 Specialty Diagnoses / Procedures Referred By Contac t Referred To Contact [facility] Diagnoses Encounter for screening mammogram for high-risk patient Procedures mamograms screening Ifeoma Davis MD [address] [place] [address] [facility] [address] [place] [address] Referral ID Status Reason Start Date Expiration Date V isits Requested Visits Authorized [id number] Closed OON/Self Pay Override 09/11/2022 09/01/2023 1 1 Reason Onset Date Comments Refill Request 07/23/2023 Reason Comments Glaucoma Follow Up 6 month HVF 24-2 OU & MAC OCT Reason Onset Date Comments [facility] Navigation Outreach 10/04/2023 [place] [facility] Gaps Reason Onset Date Comments [facility] 10/25/2023 [place] [facility] Reason Onset Date Comments Refill Request [...] Reason Comments Letter Reason Onset Date Comments [facility] Navigation Outreach 05/29/2024 Med adherence Reason Comments F/U 6 months needs some home heal th care due to vision loss Reason Onset Date Comments [facility] 06/12/2024 Bradly Javier PCSA Reason Onset Date Comments [facility] 06/15/2024 Med Adherence Reason Comments Patient Question Reason Onset Date Comments Refill Request 06/29/2024 Reason Comments Headache TINOCO, bodyaches, fatig ue x 3 days Reason Comments Orders Reason Comments Fax Request Reason Comments Results Reason Onset Date Comments [facility] 08/10/2024 Bradly Javier PCSA Reason Onset Date Comments Refill Request [...] Reason Comments Recheck 10/31/24 UA done at [facility] care, always tired Reason Comments Recheck 2 week follow up Reason Comments Results, Lab Reason Onset Date Comments Results 12/17/2024 Reason Onset Date Comments Refill Request 12/23/2024 Reason Comments Recheck 6 week follow up Reason Comments Procedure Specialty Diagnoses / Procedures Referred By Shiraz johnson Referred To Contact SLEEP DISORDERS Diagnoses Snoring Other hypersomnia Other sleep disorders Periodic limb movement disorder Essential (primary) hypertension Snoring [R06.83]; Excessive daytime sleepiness [G47.19]; Non-restorative sleep [G47.8]; PLMD (periodic limb movement disorder) [G47.61]; Primary hypertension [I10] Procedures POLYSOM 6/>YRS SLEEP 4/> ADDL BRIDGET ATTND POLYSOMNOGRAM Kimberley Byrd APRN.TALENT MANAGER [address] [place] [address] Phone: tel: fax: [facility] [address] [place] [address] Phone: tel: fax: Referral ID Status Reason Start Date Expiration Date Visits Re quested Visits Authorized [id number] Closed 11/04/2024 09/01/2025 1 1 Reason Comments [...] Care Teams (unrecognized sec tion and content) Marketing Researcher Relationship Specialty Start Date End Date Ifeoma Davis MD [address] [place] [address] PCP - General Internal Medicine 12/07/14 Marketing Researcher Relationship Specialty Start Date End Date Ifeoma Davis MD [address] [place] [address] PCP - General Internal Medicine 12/07/14 Marketing Researcher Relationship Specialty Start Date End Date Ifeoma Daivs MD [address] [place] [address] PCP - General Internal Medicine 12/07/14 Marketing Researcher Relationship Specialty Start Date End Date Ifeoma Davis MD [address] [place] [address] PCP - General Internal Medicine 12/07/14 Marketing Researcher Relationship Specialty Start Date End Date Ifeoma Davis MD [address] [place] [address] PCP - General Internal Medicine 12/07/14 Marketing Researcher Relationship Specialty Start Date End Date Ifeoma Davis MD [address] [place] [address] PCP - General Internal Medicine 12/07/14 Marketing Researcher Relationship Specialty Start Date End Date Ifeoma Davis MD [address] [place] [address] PCP - General Internal Medicine 12/07/14 Marketing Researcher Relationship Specialty Start Date End Date Ifeoma Davis MD [address] [place] [address] PCP - General Internal Medicine 12/07/14 Marketing Researcher Relationship Specialty Start Date End Date Ifeoma Davis MD [address] [place] [address] PCP - General Internal Medicine 12/07/14 Marketing Researcher Relationship Specialty Start Date End Date Ifeoma Davis MD [address] [place] [address] PCP - General Internal Medicine 12/07/14 Marketing Researcher Relationship Specialty Start Date End Date Ifeoma Davis MD [address] [place] [address] PCP - General Internal Medicine 12/07/14 Marketing Researcher Relationship Specialty Start Date End Date Ifeoma Davis MD [address] [place] [address] PCP - General Internal Medicine 12/07/14 Marketing Researcher Relationship Specialty Start Date End Date Ifeoma Davis MD [address] [place] [address] PCP - General Internal Medicine 12/07/14 Marketing Researcher Relationship Specialty Start Date End Date Ifeoma Davis MD [address] [place] [address] PCP - General Internal Medicine 12/07/14 Marketing Researcher Relationship Specialty Start Date End Date Ifeoma Davis MD [address] [place] [address] PCP - General Internal Medicine 12/07/14 Marketing Researcher Relationship Specialty Start Date End Date Ifeoma Davis MD [address] [place] [address] PCP - General Internal Medicine 12/07/14 Marketing Researcher Relationship Specialty Start Date End Date Ifeoma Davis MD [address] [place] [address] PCP - General Internal Medicine 12/07/14 Marketing Researcher Relationship Specialty Start Date End Date Ifeoma Davis MD [address] [place] [address] PCP - General Internal Medicine 12/07/14 Marketing Researcher Relationship Specialty Start Date End Date Ifeoma Davis MD [address] [place] [address] PCP - General Internal Medicine 12/07/14 Marketing Researcher Relationship Specialty Start Date End Date Ifeoma Davis MD [address] [place] [address] PCP - General Internal Medicine 12/07/14 Marketing Researcher Relationship Specialty Start Date End Date Ifeoma Davis MD [address] [place] [address] PCP - General Internal Medicine 12/07/14 Marketing Researcher Relationship Specialty Start Date End Date Ifeoma Davis MD [address] [place] [address] PCP - General Internal Medicine 12/07/14 Marketing Researcher Relationship Specialty Start Date End Date Ifeoma Davis MD [address] [place] [address] PCP - General Internal Medicine 12/07/14 Marketing Researcher Relationship Specialty Start Date End Date Ifeoma Davis MD [address] [place] [address] PCP - General Internal Medicine 12/07/14 Marketing Researcher Relationship Specialty Start Date End Date Ifeoma Davis MD [address] [place] [address] PCP - General Internal Medicine 12/07/14 Marketing Researcher Relationship Specialty Start Date End Date Ifeoma Davis MD [address] [place] [address] PCP - General Internal Medicine 12/07/14 Marketing Researcher Relationship Specialty Start Date End Date Ifeoma Davis MD [address] [place] [address] PCP - General Internal Medicine 12/07/14 Marketing Researcher Relationship Specialty Start Date End Date Ifeoma Davis MD [address] [place] [address] PCP - General Internal Medicine 12/07/14 Marketing Researcher Relationship Specialty Start Date End Date Ifeoma Davis MD [address] [place] [address] PCP - General Internal Medicine 12/07/14 Marketing Researcher Relationship Specialty Start Date End Date Ifeoma Davis MD [address] [place] [address] PCP - General Internal Medicine 12/07/14 Marketing Researcher Relationship Specialty Start Date End Date Ifeoma Davis MD [address] [place] [address] PCP - General Internal Medicine 12/07/14 Marketing Researcher Relationship Specialty Start Date End Date Ifeoma Davis MD [address] [place] [address] PCP - General Internal Medicine 12/07/14 Marketing Researcher Relationship Specialty Start Date End Date Ifeoma Davis MD [address] [place] [address] PCP - General Internal Medicine 12/07/14 Marketing Researcher Relationship Specialty Start Date End Date Ifeoma Davis MD [address] [place] [address] PCP - General Internal Medicine 12/07/14 Marketing Researcher Relationship Specialty Start Date End Date Ifeoma Davis MD [address] [place] [address] PCP - General Internal Medicine 12/07/14 Marketing Researcher Relationship Specialty Start Date End Date Ifeoma Davis MD [address] [place] [address] PCP - General Internal Medicine 12/07/14 Team Status: Active Member Role Status Dates Dr. Ifeoma Davis MD Family Provider Active Dr. Ifeoma Davis MD Primary Care Provider Active Team Status: Inactive Member Role Status Dates Dr. Ifeoma Davis MD Primary Care Provider Active CAREY VALLE Attending Provider, Referring Provide r Active Marketing Researcher Relationship Specialty Start Date End Date Ifeoma Davis MD [address] [place] [address] PCP - General Internal Medicine 12/07/14 Marketing Researcher Relationship Specialty Start Date End Date Ifeoma Davis MD [address] [place] [address] PCP - General Internal Medicine 12/07/14 Marketing Researcher Relationship Specialty Start Date End Date Ifeoma Davis MD [address] [place] [address] PCP - General Internal Medicine 12/07/14 Marketing Researcher Relationship Specialty Start Date End Date Ifeoma Davis MD [address] [place] [address] PCP - General Internal Medicine 12/07/14 Marketing Researcher Relationship Specialty Start Date End Date Ifeoma Davis MD [address] [place] [address] PCP - General Internal Medicine 12/07/14 Marketing Researcher Relationship Specialty Start Date End Date Ifeoma Davis MD [address] [place] [address] PCP - General Internal Medicine 12/07/14 Marketing Researcher Relationship Specialty Start Date End Date Ifeoma Davis MD [address] [place] [address] PCP - General Internal Medicine 12/07/14 Marketing Researcher Relationship Specialty Start Date End Date Ifeoma Davis MD [address] [place] [address] PCP - General Internal Medicine 12/07/14 Marketing Researcher Relationship Specialty Start Date End Date Ifeoma Davis MD [address] [place] [address] PCP - General Internal Medicine 12/07/14 Marketing Researcher Relationship Specialty Start Date End Date Ifeoma Davis MD [address] [place] [address] PCP - General Internal Medicine 12/07/14 Marketing Researcher Relationship Specialty Start Date End Date Ifeoma Davis MD [address] [place] [address] PCP - General Internal Medicine 12/07/14 Marketing Researcher Relationship Specialty Start Date End Date Ifeoma Davis MD [address] [place] [address] PCP - General Internal Medicine 12/07/14 Marketing Researcher Relationship Specialty Start Date End Date Ifeoma Davis MD [address] [place] [address] PCP - General Internal Medicine 12/07/14 Marketing Researcher Relationship Specialty Start Date End Date Ifeoma Davis MD [address] [place] [address] PCP - General Internal Medicine 12/07/14 Team [...] Pozo DO Attending Provider, Referring Provider Active Marketing Researcher Relationship Specialty Start Date End Date Ifeoma Davis MD [address] [place] [address] PCP - General Internal Medicine 12/07/14 Marketing Researcher Relationship Specialty Start Date End Date Ifeoma Davis MD [address] [place] [address] PCP - General Internal Medicine 12/07/14 Marketing Researcher Relationship Specialty Start Date End Date Ifeoma Davis MD [address] [place] [address] PCP - General Internal Medicine 12/07/14 Marketing Researcher Relationship Specialty Start Date End Date Ifeoma Davis MD [address] [place] [address] PCP - General Internal Medicine 12/07/14 Marketing Researcher Relationship Specialty Start Date End Date Ifeoma Davis MD [address] [place] [address] PCP - General Internal Medicine 12/07/14 Marketing Researcher Relationship Specialty Start Date End Date Ifeoma Davis MD [address] [place] [address] PCP - General Internal Medicine 12/07/14 Marketing Researcher Relationship Specialty Start Date End Date Ifeoma Davis MD [address] [place] [address] PCP - General Internal Medicine 12/07/14 Marketing Researcher Relationship Specialty Start Date End Date Ifeoma Davis MD [address] [place] [address] PCP - General Internal Medicine 12/07/14 Marketing Researcher Relationship Specialty Start Date End Date Ifeoma Davis MD [address] [place] [address] PCP - General Internal Medicine 12/07/14 Marketing Researcher Relationship Specialty Start Date End Date Ifeoma Davis MD [address] [place] [address] PCP - General Internal Medicine 12/07/14 Marketing Researcher Relationship Specialty Start Date End Date Ifeoma Davis MD [address] [place] [address] PCP - General Internal Medicine 12/07/14 Marketing Researcher Relationship Specialty Start Date End Date Ifeoma Davis MD [address] [place] [address] PCP - General Internal Medicine 12/07/14 Marketing Researcher Relationship Specialty Start Date End Date Ifeoma Davis MD [address] [place] [address] PCP - General Internal Medicine 12/07/14 Marketing Researcher Relationship Specialty Start Date End Date Ifeoma Davis MD [address] [place] [address] PCP - General Internal Medicine 12/07/14 Marketing Researcher Relationship Specialty Start Date End Date Ifeoma Davis MD [address] [place] [address] PCP - General Internal Medicine 12/07/14 Marketing Researcher Relationship Specialty Start Date End Date Ifeoma Davis MD [address] [place] [address] PCP - General Internal Medicine 12/07/14 Virginia Avalos PA-C [address] [place] [address] Inward Toll Operator Family Medicine 08/09/24 David Anna APRN.TALENT MANAGER [address] [place] [address] Inward Toll Operator Internal Medicine 08/09/24 Domitila Knapp PA-C [address] [place] [address] Inward Toll Operator Family Medicine 08/09/24 Marketing Researcher Relationship Specialty Start Date End Date Ifeoma Davis MD [address] [place] [address] PCP - General Internal Medicine 12/07/14 Virginia Avalos PA-C [address] [place] [address] Inward Toll Operator Family Medicine 08/09/24 David Anna APRN.TALENT MANAGER [address] [place] [address] Inward Toll Operator Internal Medicine 08/09/24 Domitila Knapp PA-C [address] [place] [address] Inward Toll Operator Family Medicine 08/09/24 Marketing Researcher Relationship Specialty Start Date End Date Ifeoma Davis MD [address] [place] [address] PCP - General Internal Medicine 12/07/14 Virginia Avalos PA-C [address] [place] [address] Inward Toll Operator Family Medicine 08/09/24 David Anna APRN.TALENT MANAGER [address] [place] [address] Inward Toll Operator Internal Medicine 08/09/24 Domitila Knapp PA-C [address] [place] [address] [facility] Marketing Researcher Relationship Specialty Start Date End Date Ifeoma Davis MD [address] [place] [place] [address] PCP - General Internal Medicine 12/07/14 Virginia Avalos PA-C [address] [place] [address] [phone] [facility] 08/09/24 David Anna APRN.TALENT MANAGER [address] [place] [address] Inward Toll Operator Internal Medicine 08/09/24 Domitila Knapp PA-C [address] [place] [address] [facility] 08/09/24 Marketing Researcher Relationship Specialty Start Date End Date Ifeoma Davis MD [address] [place] [address] PCP - General Internal Medicine 12/07/14 Virginia Avalos PA-C [address] [place] [address] Inward Toll Operator Family Medicine 08/09/24 David Anna APRN.TALENT MANAGER [address] [place] [address] Inward Toll Operator Internal Medicine 08/09/24 Domitila Knapp PA-C [address] [place] [address] Inward Toll Operator Family Medicine 08/09/24 Marketing Researcher Relationship Specialty Start Date End Date Ifeoma Davis MD [address] [place] [address] PCP - General Internal Medicine 12/07/14 Virginia Avalos PA-C [address] [place] [address] Inward Toll Operator Family Medicine 08/09/24 David Anna APRN.TALENT MANAGER [address] [place] [address] Inward Toll Operator Internal Medicine 08/09/24 Domitila Knapp PA-C [address] [place] [address] Inward Toll Operator Family [facility] 08/09/24 Marketing Researcher Relationship Specialty Start Date End Date Ifeoma Davis MD [address] [place] [address] PCP - General Internal Medicine 12/07/14 Virginia Avalos PA-C [address] [place] [address] Inward Toll Operator Family Medicine 08/09/24 David Anna APRN.TALENT MANAGER [address] [place] [address] Inward Toll Operator Internal Medicine 08/09/24 Domitila Knapp PA-C [address] [place] [address] Inward Toll Operator Family [facility] 08/09/24 Marketing Researcher Relationship Specialty Start Date End Date Ifeoma Davis MD [address] [place] [address] PCP - General Internal Medicine 12/07/14 Virginia Avalos PA-C [address] [place], [place] [id number] [phone] Inward Toll Operator Family Medicine 08/09/24 David Anna APRN.TALENT MANAGER [address] [place] [address] Inward Toll Operator Internal Medicine 08/09/24 Domitila Knapp PA-C [address] [place] [address] Inward Toll Operator Family [facility] 08/09/24 Marketing Researcher Relationship Specialty Start Date End Date Ifeoma Davis MD [address] [place] [address] PCP - General Internal Medicine 12/07/14 Virginia Avalos PA-C [address] [place] [address] Inward Toll Operator Family Medicine 08/09/24 David Anna APRN.TALENT MANAGER [address] [place] [address] Inward Toll Operator Internal Medicine 08/09/24 Domitila Knapp PA-C [address] [place] [address] Inward Toll Operator Family Medicine 08/09/24 Marketing Researcher Relationship Specialty Start Date End Date Ifeoma Davis MD [address] [place] [address] PCP - General Internal Medicine 12/07/14 Virginia Avalos PA-C [address] [place] [address] Inward Toll Operator Family Medicine 08/09/24 David Anna APRN.TALENT MANAGER [address] [place] [address] Inward Toll Operator Internal Medicine 08/09/24 Domitila Knapp PA-C [address] [place] [address] Inward Toll Operator Family Medicine 08/09/24 Marketing Researcher Relationship Specialty Start Date End Date Ifeoma Davis MD [address] [place] [address] PCP - General Internal Medicine 12/07/14 Virginia Avalos PA-C [address] [place] [address] Inward Toll Operator Family Medicine 08/09/24 David Anna APRN.TALENT MANAGER [address] [place] [address] Inward Toll Operator Internal Medicine 08/09/24 Domitila Knapp PA-C [address] [place] [address] Inward Toll Operator Family Medicine 08/09/24 Marketing Researcher Relationship Specialty Start Date End Date Ifeoma Davis MD [address] [place], [place] 28[address] PCP - General Internal Medicine 12/07/14 Virginia Avalos PA-C [address] [place] [address] [facility] 08/09/24 David Anna APRN.TALENT MANAGER [address] [place] [address] Inward Toll Operator Internal Medicine 08/09/24 Domitila Knapp PA-C [address] [place] [address] [facility] 08/09/24 Marketing Researcher Relationship Specialty Start Date End Date Ifeoma Davis MD [address] [place] [address] PCP - General Internal Medicine 12/07/14 Virginia Avalos PA-C [address] [place] [address] In[facility] 08/09/24 David Anna, DINNER COOK.TALENT MANAGER [address] [place] [address] Inward Toll Operator Internal Medicine 08/09/24 Domitila Knapp PA-C [address] [place] [address] [facility] 08/09/24 Team Status: Inactive Member Role Status Dates Dr. Ifeoma Davis MD Primary Care Provider Active Start: November 24, 2024 End: November 24, 2024 Dr. Edgar Beltran MD Attending Provider Active S tart: November 24, 2024 End: November 24, 2024 Team Status: Inactive Member Role Status Dates Dr. Ifeoma Davis MD Primary Care Provider Active Start: November 24, 2024 End: November 24, 2024 SURGERY ATTENDANT. Allie Prakash Attending Provider Active Star t: November 24, 2024 End: November 24, 2024 SURGERY ATTENDANT. Allie Prakash Referring Provider Active Star t: November 24, 2024 End: November 24, 2024 Marketing Researcher Relationship Specialty Start Date End Date Ifeoma Davis MD [address] [facility], [place] [address] PCP - General Internal Medicine 12/07/14 David Anna APRN.TALENT MANAGER [address] [facility], [place] [address] Inward Toll Operator Internal Medicine 08/09/24 Marketing Researcher Relationship Specialty Start Date End Date Ifeoma Davis MD [address] [facility], [place] [address] PCP - General Internal Medicine 12/07/14 David Anna APRN.TALENT MANAGER [address] [facility] [place] [address] Inward Toll Operator Internal Medicine 08/09/24 Marketing Researcher Relationship Specialty Start Date End Date Ifeoma Davis MD [address] [facility], [place] [address] PCP - General Internal Medicine 12/07/14 David Anna APRN.TALENT MANAGER [address] [facility] [place] [address] Inward Toll Operator Internal Medicine 08/09/24 Marketing Researcher Relationship Specialty Start Date End Date Ifeoma Davis MD [address] [place] [address] PCP - General Internal Medicine 12/07/14 Virginia Avalos PA-C [address] [place] [address] Inward Toll Operator Family Medicine 08/09/24 11/22/24 David Anna APRN.TALENT MANAGER [address] [place] [address] Inward Toll Operator Internal Medicine 08/09/24 Domitila Knapp PA-C [address] [place] [address] Inward Toll Operator Family Medicine 08/09/24 11/22/24 Marketing Researcher Relationship Specialty Start Date End Date Ifeoma Davis MD [address] [place] [address] PCP - General Internal Medicine 12/07/14 David Anna APRN.TALENT MANAGER [address] [facility] [place] [address] Inward Toll Operator Internal Medicine 08/09/24 Marketing Researcher Relationship Specialty Start Date End Date Ifeoma Davis MD [address] [place] [address] PCP - General Internal Medicine 12/07/14 David Anna APRN.TALENT MANAGER [address] [facility] [place] [place] [address] Inward Toll Operator Internal Medicine 08/09/24 Marketing Researcher Relationship Specialty Start Date End Date Ifeoma Davis MD [address] [place] [address] PCP - General Internal Medicine 12/07/14 David Anna APRN.TALENT MANAGER [address] [place] [address] Inward Toll Operator Internal Medicine 08/09/24 Marketing Researcher Relationship Specialty Start Date End Date Ifeoma Davis MD [address] [place] [address] PCP - General Internal Medicine 12/07/14 Virginia Avalos PA-C [address] [place] [address] Inward Toll Operator Family Medicine 08/09/24 11/22/24 David Anna APRN.TALENT MANAGER [address] [place] [address] Inward Toll Operator Internal Medicine 08/09/24 Domitila Knapp PA-C [address] [place] [address] Inward Toll Operator Family Medicine 08/09/24 11/22/24 Marketing Researcher Relationship Specialty Start Date End Date Ifeoma Davis MD [address] [place] [address] PCP - General Internal Medicine 12/07/14 David Anna APRN.TALENT MANAGER [address] [place], [place] [address] Inward Toll Operator Internal Medicine 08/09/24 Team Status: Active Member [...] November 24, 2024 End: November 24, 2024 SURGERY ATTENDANTJermaine Prakash Attending Provider Active Star t: November 24, 2024 End: November 24, 2024 SURGERY ATTENDANTJermaine Prakash Referring Provider Active Star t: November [...] March 10, 2025 End: March 10, 2025 Marketing Researcher Relationship Specialty Start Date End Date Ifeoma Davis MD [address] [place] [address] PCP - General Internal Medicine 12/07/14 David Anna APRN.TALENT MANAGER [address] [place] [address] Inward Toll Operator Internal Medicine 08/09/24 Marketing Researcher Relationship Specialty Start Date End Date Ifeoma Davis MD [address] [place] [address] PCP - General Internal Medicine 12/07/14 David Anna APRN.TALENT MANAGER [address] [place] [address] Inward Toll Operator Internal Medicine 08/09/24 Marketing Researcher Relationship Specialty Start Date End Date Ifeoma Davis MD [address] [place] [address] PCP - General Internal Medicine 12/07/14 David Anna APRN.TALENT MANAGER [address] [place] [address] Inward Toll Operator Internal Medicine 08/09/24 Marketing Researcher Relationship Specialty Start Date End Date Ifeoma Davis MD [address] [place] [address] PCP - General Internal Medicine 12/07/14 David Anna APRN.TALENT MANAGER [address] [place] [address] Inward Toll Operator Internal Medicine 08/09/24 Marketing Researcher Relationship Specialty Start Date End Date Ifeoma Davis MD [address] [place] [address] PCP - General Internal Medicine 12/07/14 David Anna APRN.TALENT MANAGER [address] [place], [place] [address] Inward Toll Operator Internal Medicine 08/09/24 Marketing Researcher Relationship Specialty Start Date End Date Ifeoma Davis MD [address] [place] [address] PCP - General Internal Medicine 12/07/14 David Anna DINNER COOK.TALENT MANAGER [address] [place] [address] Inward Toll Operator Internal Medicine 08/09/24 Marketing Researcher Relationship Specialty Start Date End Date Ifeoma Davis MD [address] [place] [address] PCP - General Internal Medicine 12/07/14 David Anna DINNER COOK.TALENT MANAGER [address] [place] [address] Inward Toll Operator Internal Medicine 08/09/24 Marketing Researcher Relationship Specialty Start Date End Date Ifeoma Davis MD [address] [place] [address] PCP - General Internal Medicine 12/07/14 Virginia Avalos PA-C [address] [place] [address] Inward Toll Operator Family Medicine 08/09/24 11/22/24 David Anna APRN.TALENT MANAGER [address] [place] [address] Inward Toll Operator Internal Medicine 08/09/24 Domitila Knapp PA-C [address] [place], [place] [address] [facility] 08/09/24 11/22/24 Marketing Researcher Relationship Specialty Start Date End Date Ifeoma Davis MD [address] [place], [place] 510[address] PCP - General Internal Medicine 12/07/14 Virginia Avalos PA-C [address] [place] [address] [facility] 08/09/24 11/22/24 Older, RAYMUNDO Jarrett [address] [place], [place] [address] [facility] Internal Medicine 08/09/24 Domitila Knapp PA-C [address] [place], [place] [address] [facility] 08/09/24 11/22/24 Team Status: Inactive Member Role/Relationship [...] April 16, 2025 End: April 16, 2025 Marketing Researcher Relationship Specialty Start Date End Date Ifeoma Davis MD [address] [place] [address] PCP - General Internal Medicine 12/07/14 David Anna APRN.TALENT MANAGER [address] [facility] [place] [address] Inward Toll Operator Internal Medicine 08/09/24 Marketing Researcher Relationship Specialty Start Date End Date Ifeoma Davis MD [address] [place] [address] PCP - General Internal Medicine 12/07/14 David Anna APRN.TALENT MANAGER [address] [facility] [place] [address] Inward Toll Operator Internal Medicine 08/09/24 Marketing Researcher Relationship Specialty Start Date End Date Ifeoma Davsi MD [address] [place] [address] PCP - General Internal Medicine 12/07/14 David Anna APRN.TALENT MANAGER [address] [place] [address] Inward Toll Operator Internal Medicine 08/09/24 Team Status: Active Member Role/Relationship Status Dates Dr. Ifeoma Davis MD Primary care physician Active Team Status: Inactive Member Role/Relationship Status Dates Dr. Ifeoma Davis MD Primary care physician Active Start: March 10, 2025 End: March 10, 2025 Dr. Ifeoma Davis MD Referring Provider Active Start: March 10, 2025 End: March 10, 2025 Dr. Phillip Pozo DO Attending physician Active Start: March 10, 2025 End: March 10, 2025 Team Status: Inactive Member Role/Relationship Status Dates Dr. Ifeoma Davis MD Primary care physician Active Start: March 10, 2025 End: March 10, 2025 Dr. Edgar Beltran MD Attending physician Active Start: March 10, 2025 End: March 10, 2025 Team Status: Inactive Member Role/Relationship Status Dates Dr. fIeoma Davis MD Primary care physician Active Start: April 16, 2025 End: April 16, 2025 Dr. Ifeoma Davis MD Referring Provider Active Start: April 16, 2025 End: April 16, 2025 Dr. Michael Cameron MD Attending physician Active Start: April 16, 2025 End: April 16, 2025 Team Status: Inactive Member Role/Relationship Status Dates Dr. Ifeoma Davis MD Primary care physician Active Start: April 16, 2025 End: April 16, 2025 Dr. Edgar Beltran MD Attending physician Active Start: April 16, 2025 End: April 16, 2025 Team Status: Inactive Member Role/Relationship Status Dates Dr. Ifeoma Davis MD Primary care physician Active Start: May 07, 2025 End: May 07, 2025 Dr. Michael Cameron MD Attending physician Active Start: May 07, 2025 End: May 07, 2025 Dr. Michael Cameron MD Referring Provider Active Start: May 07, 2025 End: May 07, 2025 Team Status: Inactive Member Role/Relationship Status Dates Dr. Ifeoma Davis MD Primary care physician Active Start: May 27, 2025 End: May 27, 2025 Dr. Juan Manuel Turpin MD Emergency Department Physician Active Start: May 27, 2025 End: May 27, 2025 Team Status: Inactive Member Role/Relationship Status Dates Dr. Ifeoma Davis MD Primary care physician Active Start: May 27, 2025 End: May 27, 2025 Dr. Juan Manuel Turpin MD Attending physician Active St art: May 27, 2025 End: May 27, 2025 Dr. Juan Manuel Turpin MD Emergency Department Physician Active Start: May 27, 2025 End: May 27, 2025 Team Status: Inactive Member Role/Relationship Status Dates Dr. Ifeoma Davis MD Primary care physician Active Start: June 03, 2025 End: June 03, 2025 Dr. Ifeoma Davis MD Referring Provider Active Start: June 03, 2025 End: June 03, 2025 Dr. Michael Cameron MD Attending physician Active Start: June 03, 2025 End: June 03, 2025 Team Status: Inactive Member Role/Relationship Status Dates Dr. Ifeoma Davis MD Primary care physician Active Start: June 04, 2025 End: June 04, 2025 Dr. Ifeoma Davis MD Referring Provider Active Start: June 04, 2025 End: June 04, 2025 Dr. Phillip Pozo DO Attending physician Active Start: June 04, 2025 End: June 04, 2025 Team Status: Inactive Member Role/Relationship Status Dates Dr. Ifeoma Davis MD Primary care physician Active Start: June 04, 2025 End: June 04, 2025 Dr. Edgar Beltran MD Attending physician Active Start: June 04, 2025 End: June 04, 2025 Scheduled Active and Recently Administ ered Medications (unrecognized section and content) Medication Order 06/23/2022 06/24/2022 06/25/2022 cyclopentolate 1%-tropicamide 1%-PHENYLephrine 2.5% ophthalmic drops (COMPLETED) 1 Drop, RIGHT EYE, EVERY 3 MINUTES, 3 doses, First dose on Sat06/25/22 at 0930, Last dose on Sat06/25/22 at 0940, For Topical Ophthalmic Use Only, Preprocedure 0934 (Given - Provid er: Allie Cardoso RN)0937 (Given - Provider: Allie Cardoso RN)0940 (Given - Provider: Allie Cardoso RN) sodium chloride 0.9 % (flush) 2-10 mL (BD POSIFLUSH) (CANCELED) 2-10 mL, INTRAVENOUS, EVERY 12 HOURS, First dose on Sat06/25/22 at 0930, Until Discontinued, Preprocedure 0934 (Given - Provid er: Allie Cardoso RN) PRN Medication Order 06/23/2022 06/24/2022 06/25/2022 balanced salts (BSS) X (OR/PROCEDURE) PRN, Starting on Sat06/25/22 at 1019, Until Sat06/26/22 at 0303, Intraprocedure 1019 (Given - Provid er: Jonathon Johnson MD) carbachol 0.01 % injection (CARBASTAT) X (OR/PROCEDURE) PRN, Starting on Sat06/25/22 at 1030, Until Sat06/26/22 at 0303, Intraprocedure 1030 (Given - Provid er: Jonathon Johnosn MD)1033 (Given - Provider: Jonathon Johnson MD)1038 (Given - Provider: Jonathon Johnson MD)1040 (Given - Provider: Jonathon Johnson MD) lidocaine (PF) 3.5 % (AKTEN) X (OR/PROCEDURE) PRN, Starting on Sat06/25/22 at 1003, Until Sat06/26/22 at 0303, Intraprocedure 1003 (Given - Provid er: Mallika Holloway RN) lidocaine 1%-PHENYLephrine 1.5% intraocular injection X (OR/PROCEDURE) PRN, Starting on Sat06/25/22 at 1013, Until Sat06/26/22 at 0303, Intraprocedure 1013 (Given - Provid er: Jonathon Johnson MD) lidocaine HCl (PF) 20 mg/mL (2 %) injection X (OR/PROCEDURE) PRN, Starting on Sat06/25/22 at 1004, Until Sat06/26/22 at 0303, Intraprocedure 1004 (Given - Provid er: Jonathon Johnson MD) moxifloxacin intraocular injection 5 mg/mL (PF) X (OR/PROCEDURE) PRN, Starting on Sat06/25/22 at 1125, Until Sat06/26/22 at 0303, Intraprocedure 1125 (Given - Provid er: Jonathon Johnson MD) nsotdatd-qdaudhegw-wtxjbukhrulwp 3.5 mg/g-10,000 unit/g-0.1 % (POLYDEX) X (OR/PROCEDURE) [...] 0303, Intraprocedure 1013 (Given - Provid er: Jnoathon Johnson MD) sodium hyaluronate 10 mg/mL injection (PROVISC,HEALON PRO) X (OR/PROCEDURE) PRN, Starting on Sat06/25/22 at 1045, Until Sat06/26/22 at 0303, Intraprocedure 1045 (Given - Provid er: Jonathon Johnson MD) tetracaine 0.5 % (OPTICAINE) X (OR/PROCEDURE) PRN, Starting on Sat06/25/22 at 1002, Until Sat06/26/22 at 0303, Intraprocedure 1002 (Given - Provid er: Mallika Holloway RN)1046 (Given - Provider: Mallika Holloway RN) INFORMATION SOURCE (unrecogn ized section and content) DATE CREATED AUTHOR 11/01/2022 [facility] DATE CREATED AUTHOR AUTHOR'S ORGANIZ ATION 11/09/2022 [facility] DATE CREATED AUTHOR AUTHOR'S ORGANIZ ATION 01/08/2025 [facility] DATE CREATED AUTHOR AUTHOR'S ORGANIZ ATION 06/15/2025 [facility] DATE CREATED AUTHOR AUTHOR'S ORGANIZ ATION 06/15/2025 [facility] Goals (unrecognized section and content) Goals [...] BE BASED ON THE PRIMARY CLINICAL RECORDS. [employer] [facility]. provides no warranty or guarantee of the accuracy or completeness of information in this document.
[2025-06-17 19:44] VITALS: BP 157/72; PULSE 70; RESP 18; TEMP 36.6; O2SAT 100
--- NOTE | 2025-06-17 19:53 | ED.RN ---
rn suggested pt do a 15 min shot time after morphine administration, pt denied this. Escorted out of unit via wheelchair
== END 2025-06-17 19:48 | disposition home or self-care (01) ==
PROVIDERS: Emergency Provider Emergency Medicine; PCP Internal Medicine; Visit Provider Emergency Medicine
DX: R51.9 Headache, unspecified (principal); I65.02 Occlusion and stenosis of left vertebral artery; E78.00 Pure hypercholesterolemia, unspecified; K21.9 Gastro-esophageal reflux disease without esophagitis; I10 Essential (primary) hypertension; Z79.899 Other long term (current) drug therapy; F32.A Depression, unspecified; F41.9 Anxiety disorder, unspecified; I65.23 Occlusion and stenosis of bilateral carotid arteries; Z79.82 Long term (current) use of aspirin
CPT/HCPCS: 70450; 70496; 70498; 96374; 99283; Q9967; A4216

== ENCOUNTER → 2025-06-21 | Outpatient (CLI) | payer MEDICARE, MEDICAID, SELFPAY ==
--- NOTE | 2025-06-21 13:19 | CT_ITS ---
PROCEDURE: EXTREMITY LOWER WITHOUT CONTRA 06/21/2025 REASON FOR EXAM: TEMPLATING FOR LEFT NURIS TECHNIQUE: Procedure Code: CTELWO Modality: CT Procedure: EXTREMITY LOWER WITHOUT CONTRA Coronal and Sagittal reconstruction series were provided. CONTRAST: None One or more dose reduction techniques were used (e.g., Automated exposure control, adjustment of the mA and/or kV according to patient size, use of iterative reconstruction technique). RADIATION DOSE SUMMARY: DLP: 800 mGycm COMPARISON: There is no comparison FINDINGS: There is moderate osteoarthritis with joint space narrowing and marginal osteophytes. There is no acute fracture or dislocation. Adjacent muscular structures appear intact. There is no visible joint effusion. Mineralization is normal. There is no suspicious lytic or blastic lesions. The pelvic bones appear intact. There is no significant atherosclerosis. CT/Extremity Lower without Contra IMPRESSION: There is moderate osteoarthritis with joint space narrowing and marginal osteop hytes. Reading Location: [facility]
== END | disposition home or self-care (01) ==
LOC: CT 13:00
PROVIDERS: PCP Internal Medicine; Referring Provider Orthopaedic Surgery; Visit Provider Orthopaedic Surgery
DX: M16.12 Unilateral primary osteoarthritis, left hip (principal)
CPT/HCPCS: 73700

== ENCOUNTER 2025-06-23 17:25 | Emergency (ER) | payer MEDICARE, MEDICAID, SELFPAY ==
[2025-06-23 17:25] VITALS: BP 133/68; PULSE 76; RESP 16; TEMP 36.8; O2SAT 98; BMI 29.0
[2025-06-23] MEDS: 0.9% Normal Saline (1000mL) 1,000 ML 1000 ML IV (18:50)
[2025-06-23] MEDS: DiphenhydrAMINE 50 MG/ML Syringe 25 MG IV (18:52)
[2025-06-23 19:25] VITALS: BP 138/69; PULSE 61; RESP 16; O2SAT 98
[2025-06-23 19:33] LABS: Hematocrit 31.8 % (37-47); Hemoglobin 10.4 g/dL (12.0-15.0); Immature Granulocytes Count 0.020 X10^3/uL (0.0-0.0); Mean Corp Hgb Conc 32.7 g/dL (32-36); Mean Corpuscular Volume 90.9 fL (81-99); Mean Platelet Vol. 10.3 fl (6.2-12.0); NRBC Flagged by Analyzer 0 % (0-5); Platelet Count 274 K/mm3 (150-450); RBC Distribution Width CV 13.2 % (11.6-14.6); RBC Distribution Width SD 43.8 fl (35.1-43.9); Red Blood Count 3.50 M/mm3 (4.2-5.4); White Blood Count 7.0 K/mm3 (4.4-11.0)
[2025-06-23 20:06] LABS: Anion Gap 8 (5-15); BUN 15 mg/dL (4-19); BUN/Creat Ratio 14.5 RATIO (10-20); Calcium,Total 8.8 mg/dL (7.6-11.0); Carbon Dioxide 28.0 mmol/L (21.0-32.0); Chloride 99 mmol/L (98-108); Estimated Creatinine Clearance 53.99 ml/min (50-250); Glucose 92 mg/dL (70-99); Potassium 3.5 mmol/L (3.3-5.1)
[2025-06-23 21:14] VITALS: BP 126/62; PULSE 78; RESP 16; TEMP 36.6; O2SAT 98
== END 2025-06-23 21:15 | disposition home or self-care (01) ==
PROVIDERS: Emergency Provider Surgery; PCP Internal Medicine; Visit Provider Surgery
DX: R51.9 Headache, unspecified (principal); D64.9 Anemia, unspecified; I65.02 Occlusion and stenosis of left vertebral artery; E78.00 Pure hypercholesterolemia, unspecified; K21.9 Gastro-esophageal reflux disease without esophagitis; H54.8 Legal blindness, as defined in USA; I10 Essential (primary) hypertension
CPT/HCPCS: 70450; 70496; 70498; 80048; 85025; 96361; 96372; 96374; 96375; 99284; Q9967; A4216; J3030

== ENCOUNTER 2025-06-29 02:43 | Emergency (ER) | payer MEDICARE, MEDICAID, SELFPAY ==
[2025-06-29 02:44] VITALS: BP 133/80; PULSE 72; RESP 18; TEMP 36.9; O2SAT 98; BMI 28.4
--- OUTSIDE RECORDS SUMMARY | 2025-06-29 03:17 | XMS RPT_ITS | CCD ---
Author Organization [facility] CliniSywv Care Team Providers Care Insulator Cutter And Former Name Role Phone Ifeoma Davis MD Primary Care Provider STALKER, WOLF Referring Unavailable SUSAN, IFEOMA Primary Care Unavailable STALKER, WOLF Referring Unavailable IFEOMA DAVIS Primary Care Unavailable STALKER, WOLF Referring Unavailable SUSAN, IFEOMA Primary Care Unavailable Ifeoma Davis MD Primary Care Provider JONATHON JOHNSON Admitting Unavailable JONATHON JOHNSON Attending Unavailable IFEOMA DAVIS Primary Care Unavailable MASSIMO HICKS Admitting Unavailable MASSIMO HICKS Attending Unavailable IFEOMA DAVIS Primary Care Unavailable Susan, Dr. Dia Primary Care Provider Dr. Ifeoma Davis Referring Provider Dr. Phillip Pozo Attending Provider Dr. 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 Ifeoma Davis MD Primary Care Provider Dr. Edgar Beltran MD Attending Provider NP. Allie Prakash Attending Provider NP. Allie Prakash Referring Provider Virginia Avalos PA-C Unavailable [phone] Domitila Knapp PA-C Unavailable THORPE, KIMBERLEY Referring Unavailable GANTA, IFEOMA Primary Care Unavailable Susan CORREIA, Dr. Dia Referring Provider Nohelia BENNETT, Dr. Fisher Attending Provider Susan CORREIA, Dr. Dia Primary Care Provider Susan CORREIA, Dr. Dia Referring Provider Nohelia BENNETT, Dr. Fisher Attending Provider Ruby CORREIA, Dr. Hernández Attending Provider Rakesh CORREIA, Dr. Rodriguez Attending Provider Susan CORREIA, Dr. Dia Primary Care Physician Nohelia BENNETT, Dr. Fisher Attending Physician Ruby CORREIA, Dr. Hernández Attending Physician Rakesh CORREIA, Dr. Rodriguez Attending Physician Rakesh CORREIA, Dr. Rodriguez Referring Provider Papi CORREIA, Dr. Zambrano Emergency Department Physician Papi CORREIA, Dr. Zambrano Attending Physician GANTA, IFEOMA Primary Care Unavailable ANKUR CURTIS Referring Unavaila JANET Kemp Attending Unavailable GANTA, IFEOMA Primary Care Unavailable ADRIANA TALBERT Attending Unavailabl e ADRIANA TALBERT Admitting Unavailabl e GANTA, IFEOMA Primary Care Unavailable SELF Referring Unavailable CYNTHIA RAMOS Attending Unavailable GANTA, IFEOMA Primary Care Unavailable DAVID ANNA Referring Unavailable GANTA, IFEOMA Primary Care Unavailable CALLI GERBER Attending Unavailable GANTA, IFEOMA Primary Care Unavailable GANTA, IFEOMA Attending Unavailable GANTA, IFEOMA Primary Care Unavailable CYNTHIA RAMOS Attending Unavailable AISLINN MCMULLEN Attending Unavailable GANTA, IFEOMA Primary Care Unavailable GANTA, IFEOMA Primary Care Unavailable GANTA, IFEOMA Referring Unavailable GANTA, IFEOMA Primary Care Unavailable GANTA, IFEOMA Referring Unavailable GANTA, IFEOMA Primary Care Unavailable SELF Referring Unavailable GANTA, IFEOMA Attending Unavailable GANTA, IFEOMA Primary Care Unavailable ADRIANA TALBERT Attending Unavailabl e GANTA, IFEOMA Primary Care Unavailable GANTA, IFEOMA Primary Care Unavailable GANTA, IFEOMA Primary Care Unavailable GANTA, IFEOMA Attending Unavailable GANTA, IFEOMA Primary Care Unavailable SELF Referring Unavailable GANTA, IFEOMA Attending Unavailable GANTA, IFEOMA Primary Care Unavailable DAVID ANNA Attending Unavailable GANTA, IFEOMA Primary Care Unavailable GANTA, IFEOMA Attending Unavailable GANTA, IFEOMA Primary Care Unavailable HELDER, DESTINEY Referring Unavailable GANTA, IFEOMA Primary Care Unavailable EMILY CHAPARRO Referring Unavailable GANTA, IFEOMA Primary Care Unavailable GANTA, IFEOMA Primary Care Unavailable GANTA, IFEOMA Attending Unavailable GANTA, IFEOMA Primary Care Unavailable MICHELLE BECERRIL Attending Unavailable GANTA, IFEOMA Primary Care Unavailable HELDER, DESTINEY Attending Unavailable GANTA, IFEOMA Primary Care Unavailable GANTA, IFEOMA Attending Unavailable GANTA, IFEOMA Primary Care Unavailable Ganta, Ifeoma Primary Care Unavailable Ganta, Ifeoma Referring Unavailable Cameron, Michael Attending Unavailable Ganta, Ifeoma Primary Care Unavailable Ruby, Edgar Attending Unavailable Ruby, Edgar Attending Unavailable Ganta, Ifeoma Primary Care Unavailable Ganta, Ifeoma Primary Care Unavailable Ganta, Ifeoma Referring Unavailable Borpatyso, Phillip Attending Unavailable Ganta, Ifeoma Primary Care Unavailable Ganta, Ifeoma Referring Unavailable Borruso, Phillip Attending Unavailable Ruby, Edgar Attending Unavailable Ganta, Ifeoma Primary Care Unavailable Ganta, Ifeoma Primary Care Unavailable Ruby, Edgar Attending Unavailable Ganta, Ifeoma Primary Care Unavailable Ganta, Ifeoma Referring Unavailable Borruso, Phillip Attending Unavailable Ganta, Ifeoma Primary Care Unavailable Cameron, Michael Referring Unavailable Cameron, Michael Attending Unavailable Ganta, Ifeoma Primary Care Unavailable Borruso, Phillip Attending Unavailable Borruso, Phillip Referring Unavailable Ganta, Ifeoma Primary Care Unavailable BorpatysoPhillip Attending Unavailable Borruso, Phillip Admitting Unavailable Borruso, Phillip Referring Unavailable Geovanni Sorto Attending Unavailabl e Ganta, Ifeoma Primary Care Unavailable Ungur Remus Attending Unavailable Ganta, Ifeoma Primary Care Unavailable Ganta, Ifeoma Primary Care Unavailable Turpin, Juan Manuel Attending Unavailable [place], Allie Referring Unavailable [place], Allie Attending Unavailable Ganta, Ifeoma Primary Care Unavailable Ganta, Ifeoma Referring Unavailable Ganta, Ifeoma Attending Unavailable Ganta, Ifeoma Primary Care Unavailable Ifeoma Davis Primary Care Unavailable Ifeoma Davis Referring Unavailable Michael Cameron Attending Unavailable Iefoma Davis Primary Care Unavailable Edgar Beltran Attending Unavailable Allergies Allergy Classification Reported Allergen(s) Allergy Type Date of Onset Reaction(s) Facility Acetaminophen / HYDROcodone (1 source) Acetaminophen / HYDROcodone Drug Allergy 04-28-20 12 Itching [facility] Nitrofurantoin (1 source) Nitrofurantoin Drug Allergy 03-05-20 Other: See Comments [facility] Opioid Agonists (4 sources) HYDROcodone Drug Allergy 03-12-20 06 Itching, Other: See Comments, Vomiting [facility] (20 sources) Acetaminophen / HYDROcodone; Translations: [HYDROCODONE-ACETA MINOPHEN] Drug Allergy 04-28-20 12 Itching [facility] Work Phone: (20 sources) HYDROcodone; Translations: [HYDROCODONE BITARTRATE] Drug Allergy 10-19-19 18 Itching [facility] (20 sources) Morphinan opioid; Translations: [OPIOIDS - MORPHINE ANALOGUES] Drug Allergy 03-05-20 20 Itching [facility] (20 sources) Nitrofurantoin; Translations: [NITROFURANTOIN] Drug Allergy 03-05-20 Other: See Comments [facility] (20 sources) Propoxyphene; Translations: [PROPOXYPHENE] Drug Allergy 03-05-20 Other: See Comments [facility] (20 sources) traMADol; Translations: [TRAMADOL] Drug Allergy 03-05-20 Other: See Comments [facility] (20 sources) traMADol; Translations: [TRAMADOL HCL] Drug Allergy 03-12-20 06 Vomiting [facility] (20 sources) Propoxyphene N-Acetaminophen; Translations: [PROPOXYPHENE N-ACETAMINOPHEN] Drug Intolerance 04-28-20 12 Mental Status Change [facility] Work Phone: (14 sources) nitrofurantoin macrocrystalline; Translations: [nitrofurantoin macrocrystalline] Propensity to adverse reactions 11-21-19 22 Other [facility] (1 source) HYDROcodone Drug Allergy 06-23-20 [facility] Repository (1 source) Nitrofurantoin Drug Allergy 06-23-20 [facility] Repository (1 source) Propoxyphene Drug Allergy 06-23-20 [facility] Repository (1 source) traMADol Drug Allergy 06-23-20 [facility] Repository Medications Current Medications Medication Drug Class(es) [...] Take 1 tablet by porfirio once daily. azithromycin 250 mg oral tablet (9 sources) Macrolide Antimicrobial Start: 04-11-20 azithromycin (ZITHROMAX Z-SRINIVAS) 250 mg tablet 2 tablets by mouth [...] Comment on above: Take 1 capsule by [facility] three times daily as needed for cough. [...] Comment on above: Take 1 capsule by [facility] twice daily for 7 days. cevimeline 30 [...] by mouth once daily 84 hr estradiol 0.16214 mg/hr transdermal system (20 sources) Estrogen Start: [...] on above: Take 1 capsule by mo [facility] daily at bedtime for 181 days. 12 [...] Corticosteroid Start: 04-28-20 End: 05-04-20 methylPREDNISolone (MEDROL, SRINIVAS,) 4 mg Dose-Pack Indications: Poison boo As instructed per package 21 tablet 04/28/2025 05/04/2025 Active nystatin 100 unt/mg topical powder (3 sources) Polyene Antifungal Start: 04-22-20 End: 05-06-20 nystatin (MYCOSTATIN) powder Apply 1 application to affected area two times a day for 14 days. 60 g 04/22/2025 05/06/2025 Active Ht-1-Uba-Epa-Fish Oil-Vit D3 720 mg- 25 mcg capsule (10 sources) Start: 12-10-19 Ji-9-Xzv-Epa-Fish Oil-Vit D3 720 mg- 25 mcg capsule Active NMA PO December 09, 2024 12:00am Complies with drug therapy Start: 12-09-2024 Start: 12-09-2024 Dt-2-Ydh-Epa-F elvia Oil-Vit D3 720 mg- 25 mcg [...] Comment on above: Take 1 capsule by [facility] once daily. prednisoLONE acetate 10 mg/ml ophthalmic [...] on above: Take 2 tablets by mo [facility] once daily for 5 days. Take 4 [...] 0.5 % 1 Drop (A LCAINE) [place] (2 sources) Start: 06-04-2025 take 1 capsule [...] (obstructive sleep apnea) APAP 5-18 cmH2O DME [facility] 1 each 12/17/2024 03/24/2025 Discontinued Start: 12-17-2024 End: 05-03-2052 CPAP/BIPAP/OTHER Indications : DAYSI (obstructive sleep apnea) APAP 5-18 cmH2O DME [facility] 1 each 12/17/2024 05/03/2052 Active cyclopentolate [...] extended release oral tablet (20 sources) Uncompetitive A-wmuoak-G-[place]part[place] te Receptor Antagonist, Sigma-1 Agonist Start: 08-30-2023 [...] 14 capsule 04/11/2024 12/29/2024 Discontinued Estrogens, Conjugated (HALF-WAY) / medroxyPROGESTERone (20 sources) Progestin, Estrogen Start: [...] mg oral tablet (20 sources) Start: 09-09-19 End: 10-07-19 25 take 1 tablet by mouth once daily loratadine (CLARITIN) 10 mg tablet Indications: Nasal congestion Take 1 tablet by mouth once daily. 30 tablet 11 09/09/2023 10/07/2024 Discontinued (Course of therapy completed) Comment on above: Take 1 tablet by [facility] once daily. meclizine hydrochloride 25 mg oral tablet (13 sources) Antiemetic Start: 11-21-19 End: 11-06-19 take [...] % 1 Drop (AK-DILATE, BENEDICT-SYNEPHRINE) polymyxin b [id number] unt/ml / trimethoprim 1 mg/ml ophthalmic solution [...] cataract, bilateral] Onset: 04-03-2022 Resolved: 12-29-2022 Chronic Conditions associated with dizziness or vertigo (20 [...] headache syndrome; Translations: [Other headache syndrome] Episodic Headache; including migraine (1 source) Headache; including migraine; Translations: [Headache, unspecified] Onset: 06-23-2025 Inflammation; infection of eye (except that caused [...] Other Problems Problem Classification Problem Date Documented Date Episodic/Chronic Abdominal pain (20 sources) Upper abdominal pain; Translations: [Right upper quadrant pain] Onset: 01-29-2018 01-29-2018 Episodic Blindness and vision defects (20 sources) Photopsia; Translations: [Other subjective visual disturbances] Onset: 06-25-2022 Resolved: 06-25-2022 Episodic Complications of surgical procedures or medical care (3 sources) Leaking filtering bleb; Translations: [Other postprocedural complications and disorders of eye and adnexa, not elsewhere classified] Onset: 03-23-2025 03-23-2025 Episodic Fluid and electrolyte disorders (3 sources) [...] Test Name Value Interpretation Reference Range Facility Basic Metabolic Profile (BMP )on 06-23-2025 BUN/CRE 14.5 RATIO Normal 06-21 [facility] Comment on above: Performed By: #### L 100.0100, L500.2500 ####[facility] [address] [place], [address] Calcium [Mass/Vol] 8.8 mg/dL Normal 7.6-11.0 [facility] Comment on above: Performed By: #### L 100.0100, L500.2500 ####[facility] [address] [place], [address] Chloride [Moles/Vol] 99 mmol/L Normal 98-108 [facility] Comment on above: Performed By: #### L 100.0100, L500.2500 ####[facility] [address] [place], [address] CO2 [Moles/Vol] 28.0 mmol/L Normal 21.0-32.0 [facility] Comment on above: Performed By: #### L 100.0100, L500.2500 ####[facility] [address] [place], [address] Creatinine [Mass/Vol] 1.04 mg/dL Normal 0.70-1.20 [facility] Comment on above: Performed By: #### L 100.0100, L500.2500 ####[facility] [address] [place], [address] ECRCL 53.99 ml/min Normal 50-250 [facility] Comment on above: Performed By: #### L 100.0100, L500.2500 ####[facility] [address] [place], [address] GAP 8 Normal 5-15 [facility] Comment on above: Performed By: #### L 100.0100, L500.2500 ####[facility] [address] [place], [address] GFR/1.73 sq M.predicted among non-blacks MDRD (S/P/Bld) [Vol rate/Area] 63 mL/min/{1.73_m2} Normal >60 [facility] Comment on above: Result Comment: mL/m in/1.73m2 CKD-EPI Creatinine Equation (2020) Performed By: #### L 100.0100, L500.2500 ####[facility] [address] [place], [address] Glucose [Mass/Vol] 92 mg/dL Normal 70-99 [facility] Comment on above: Performed By: #### L 100.0100, L500.2500 ####[facility] [address] [place], [address] Potassium [Moles/Vol] 3.5 mmol/L Normal 3.3-5.1 [facility] Comment on above: Performed By: #### L 100.0100, L500.2500 ####[facility] [address] [place], [address] Sodium [Moles/Vol] 135 mmol/L Normal 133-145 [facility] Comment on above: Performed By: #### L 100.0100, L500.2500 ####[facility] [address] [place], [address] Urea nitrogen [Mass/Vol] 15 mg/dL Normal 4-19 [facility] Comment on above: Performed By: #### L 100.0100, L500.2500 ####[facility] [address] [place], [address] Brain/Head without Contrasto n 06-23-2025 Brain/Head without Contrast [facility] Imaging Services [address] [place] [address] Brain/Head without Contrast MR#: [id number] Acct: [id number] Name: ALLIE RUTLEDGE Rep #: [id number] : 1970 F 55 From: Manish June MD PCP: Dr. Iefoma Davis MD Status: REG ER Study: Brain/Head without Contrast Date of Exam: 06/03 10/27 Exam# [id number] Ordering Dr: Geovanni Sorto DO PROCEDURE: CT BRAIN/HEAD WITHOUT CONTRAST; CTA HEAD AND NECK W/ CONTRAST 06/23/2025 REASON FOR EXAM: [place] TECHNIQUE: Procedure Code: CTBR; CTCTA.HDNCK Modality: CT Procedure: BRAIN/HEAD WITHOUT CONTRAST; CTA HEAD AND NECK W/ CONTRAST Coronal and Sagittal reconstructions were provided. 3D post processing was performed. 95 cc of Isovue-300 intravenous contrast was administered. One or more dose reduction techniques were used (e.g., Automated exposure control, adjustment of the mA and/or kV according to patient size, use of iterative reconstruction technique. RADIATION DOSE SUMMARY: DLP: 1339.6 mGycm COMPARISON: CT head/angiography 06/17/2025. FINDINGS: CTA HEAD: Patent major intracranial arterial vasculature. No acute large vessel occlusion, high-grade stenosis, saccular aneurysm, or vascular malformation identified. CTA NECK: Conventional aortic arch branching. 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 Widely patent right vertebral artery. Atherosclerotic plaque at the carotid bifurcations with associated mild narrowing of the proximal ICAs bilaterally. Atherosclerotic plaque and irregular moderate luminal narrowing along the distal right ICA cavernous/supraclinoid segments, unchanged. NONCONTRAST CT HEAD: No acute intracranial hemorrhage, extra-axial collection, mass effect or evidence of acute infarct. Ventricles and subarachnoid spaces are normal in size. Absent [place] ocular lenses. Intact skull base and calvarium. Well-aerated paranasal sinuses and mastoid air cells. CT/Brain/Head without Contrast IMPRESSION: No acute intracranial abnormality is evident. No acute angiographic findings or significant change from prior exam. 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 Atherosclerotic plaque at the carotid artery bifurcations with mild stenosis bilaterally of the proximal ICAs. Irregular moderate stenosis of the segments. No intracranial large vessel arterial occlusion or high-grade stenosis. No aneurysm. Reading Location: [id number] CC: Dr. Geovanni Sorto DO; Dr. Ifeoma Davis MD Corrections Officer: Signed Normal [facility] CBC W/Diff, Automatedon 10-2 Absolute Lymph 1.25 X10 3/uL Normal 0.83-4.51 [facility] Comment on above: Performed By: #### L 100.0100, L500.2500 #### [facility] [address] [place], [address] Absolute Neut 4.7 X10 3/uL Normal 2.0-7.7 [facility] Comment on above: Performed By: #### L 100.0100, L500.2500 #### [facility] [address] [place], [address] Basophils/100 WBC (Bld) 0.3 % Normal 0-1 [facility] Comment on above: Performed By: #### L 100.0100, L500.2500 #### [facility] [address] [place], [address] Eosinophils/100 WBC (Bld) 2.4 % Normal 0-5 [facility] Comment on above: Performed By: #### L 100.0100, L500.2500 #### [facility] [address] [place], [address] Erythrocyte distribution width (RBC) [Ratio] 13.2 % Normal 11.6-14.6 [facility] Comment on above: Performed By: #### L 100.0100, L500.2500 #### [facility] [address] [place], [address] Hematocrit (Bld) [Volume fraction] 31.8 % Low 37-47 [facility] Comment on above: Performed By: #### L 100.0100, L500.2500 #### [facility] [address] [place], [address] Hemoglobin (Bld) [Mass/Vol] 10.4 g/dL Low 12.0-15.0 [facility] Comment on above: Performed By: #### L 100.0100, L500.2500 #### [facility] [address] [place], [address] IG% 0.300 Normal 0.0-0.9 [facility] Comment on above: Result Comment: IG% - Immature Granulocytes (promyelocytes, myelocytes and metamyelocytes) > 1% indicates that a LEFT SHIFT is Present. Performed By: #### L 100.0100, L500.2500 #### [facility] [address] [place], [address] Lymphocytes/100 WBC (Bld) 17.9 % Low 19-41 [facility] Comment on above: Performed By: #### L 100.0100, L500.2500 #### [facility] [address] [place], [address] MCH (RBC) [Entitic mass] 29.7 pg Normal 27.0-32.0 [facility] Comment on above: Performed By: #### L 100.0100, L500.2500 #### [facility] [address] [place], [address] MCHC (RBC) [Mass/Vol] 32.7 g/dL Normal 32-36 [facility] Comment on above: Performed By: #### L 100.0100, L500.2500 #### [facility] [address] [place], [address] MCV (RBC) [Entitic vol] 90.9 fL Normal 81-99 [facility] Comment on above: Performed By: #### L 100.0100, L500.2500 #### [facility] [address] [place], [address] Monocytes/100 WBC (Bld) 11.9 % High 0-10 [facility] Comment on above: Performed By: #### L 100.0100, L500.2500 #### [facility] [address] [place], [address] Neutrophils/100 WBC (Bld) 67.2 % Normal 47-70 [facility] Comment on above: Performed By: #### L 100.0100, L500.2500 #### [facility] [address] [place], [address] Nucleated RBC (Bld) [#/Vol] 0 10*3/uL Normal 0-5 [facility] Comment on above: Performed By: #### L 100.0100, L500.2500 #### [facility] [address] [place], [address] Platelet mean volume (Bld) [Entitic vol] 10.3 fL Normal 6.2-12.0 [facility] Comment on above: Performed By: #### L 100.0100, L500.2500 #### [facility] [address] [place], [address] Platelets (Bld) [#/Vol] 274 10*3/uL Normal 150-450 [facility] Comment on above: Performed By: #### L 100.0100, L500.2500 #### [facility] [address] [place], [address] RBC (Bld) [#/Vol] 3.50 10*6/uL Low 4.2-5.4 [facility] Comment on above: Performed By: #### L 100.0100, L500.2500 #### [facility] [address] [place], [address] RDW SD 43.8 fl Normal 35.1-43.9 [facility] Comment on above: Performed By: #### L 100.0100, L500.2500 #### [facility] [address] [place], [address] WBC (Bld) [#/Vol] 7.0 10*3/uL Normal 4.4-11.0 [facility] Comment on above: Performed By: #### L 100.0100, L500.2500 #### [facility] [address] [place], [address] CTA Head AND Neck W/ Contras ton 06-23-2025 CTA Head AND Neck W/ Contrast [facility] Imaging Services [address] [place] [address] CTA Head AND Neck W/ Contrast MR#: [id number] Acct: [id number] Name: ALLIE RUTLEDGE Rep #: [id number] : 1970 F 55 From: Manish June MD PCP: Dr. Ifeoma Davis MD Status: [facility] ER Study: CTA Head AND Neck W/ Contrast Date of Exam: Exam# [id number] Ordering Dr: Geovanni Sorto DO PROCEDURE: CT BRAIN/HEAD WITHOUT CONTRAST; CTA HEAD AND NECK W/ CONTRAST 06/23/2025 REASON FOR EXAM: [place] TECHNIQUE: Procedure Code: CTBR; CTCTA.HDNCK Modality: CT Procedure: BRAIN/HEAD WITHOUT CONTRAST; CTA HEAD AND NECK W/ CONTRAST Coronal and Sagittal reconstructions were provided. 3D post processing was performed. 95 cc of Isovue-300 intravenous contrast was administered. One or more dose reduction techniques were used (e.g., Automated exposure control, adjustment of the mA and/or kV according to patient size, use of iterative reconstruction technique. RADIATION DOSE SUMMARY: DLP: 1339.6 mGycm COMPARISON: CT head/angiography 06/17/2025. FINDINGS: CTA HEAD: Patent major intracranial arterial vasculature. No acute large vessel occlusion, high-grade stenosis, saccular aneurysm, or vascular malformation identified. CTA NECK: Conventional aortic arch branching. 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 Widely patent right vertebral artery. Atherosclerotic plaque at the carotid bifurcations with associated mild narrowing of the proximal ICAs bilaterally. Atherosclerotic plaque and irregular moderate luminal narrowing along the distal right ICA cavernous/supraclinoid segments, unchanged. NONCONTRAST CT HEAD: No acute intracranial hemorrhage, extra-axial collection, mass effect or evidence of acute infarct. Ventricles and subarachnoid spaces are normal in size. Absent [place] ocular lenses. Intact skull base and calvarium. Well-aerated paranasal sinuses and mastoid air cells. CT/CTA Head AND Neck W/ Contrast IMPRESSION: No acute intracranial abnormality is evident. No acute angiographic findings or significant change from prior exam. 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 Atherosclerotic plaque at the carotid artery bifurcations with mild stenosis bilaterally of the proximal ICAs. Irregular moderate stenosis of the segments. No intracranial large vessel arterial occlusion or high-grade stenosis. No aneurysm. Reading Location: [id number] CC: Dr. Geovanni Sorto DO; Dr. Ifeoma Davis MD Corrections Officer: Signed Normal [facility] Emergency Department Summary on 06-23-2025 Emergency Department Summary [facility] Medical Records Department [address] [place] [address] Emergency Department Summary 06/23/25 MR#: [id number] Acct: [id number] Name: ALLIE RUTLEDGE Rep #: [id number] : 1970 55 From: Geovanni Sorto DO PCP: Dr. 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 Patient states that she has had a headache since 06/17/2025. States she was seen in our emergency department for the headache. States she was diagnosed with a blockage in her neck and discharged home from our emergency department. She states the headache has continued in which she saw her PCP. States she saw the eye doctor yesterday who checked her ocular pressures that were unremarkable. She denies any trauma or injury. Mild light sensitivity and nausea. Denies any weakness or numbness or tingling. Denies any fever, chills. She describes her headache as pressure. Review of systems: See HPI Medications: As listed on the chart Allergies: As listed on the chart PFSH: Per chart Vital signs: As listed on the chart. Reviewed. Physical exam: Gen: A O x3, NAD but sitting in a dark room Head: Normocephalic, atraumatic Eyes: No sclera icterus, conjunctiva clear, PERRL ENT: TMs clear BL, moist mucous membranes, posterior oropharynx unremarkable Neck: Trachea midline, Full ROM CV: RRR, no murmurs Resp: Lungs CTA BL, no w/r/c Musc: Full ROM, no deformity Skin: Warm, dry, no rash Neuro: Alert, oriented, grossly intact, sensation intact Psych: Cooperative, appropriate mood and affect [facility] Medical History (Updated 06/23/25 @ 20:[address] Geovanni Klusty-Taz, DO) Wears glasses Depression Anxiety High cholesterol Ambulates with cane GERD (gastroesophageal reflux disease) Non-smoker Hip arthritis Degenerative scoliosis Lumbar radiculopathy Spondylolisthesis History of trigger finger Fibromyalgia Restless legs Hot flashes Legal blindness of both eyes as defined in [place] PXE (pseudoxanthoma elasticum) Hypertension Home Medications ???Medication ???Instructions ???Recorded ???Last Taken ???Type atorvastatin 40 mg tablet 40 mg PO QHS HLD 01/17/17 Unknown History meloxicam 15 mg tablet 15 mg PO DAILY PAIN 11/20/21 Unkno wn History omeprazole 20 mg capsule,delayed 20 mg PO DAILY GERD 11/20/21 Unkno wn History release amlodipine 2.5 mg tablet 2.5 mg PO QDAY HTN 12/09/24 Unknow n History aspirin 81 mg tablet,delayed 81 mg PO QDAY HEART HEALTH 5 Unknown History release (Adult Low Dose Aspirin) escitalopram oxalate 10 mg tablet 10 mg PO QDAY ANXIETY 12/09/24 Un known History estradiol 0.1 mg/24 hr semiweekly 1 patch transdermal QWEEK HORMONE 12/09/24 Unknown History transdermal patch (Darling) REPLACEMENT lisinopril 10 1 tab PO QDAY HTN 12/09/24 Unknown History mg-hydrochlorothiazide 12.5 mg tablet magnesium 200 mg tablet 200 mg PO QDAY SUPPLEMENT 12/09/24 Unknown History zolpidem 5 mg tablet 5 mg PO QHS PRN sleep 12/09/24 Unk nown History fluticasone propionate 50 2 spray intranasal QDAY ALLERGIES 03/10/25 Unknown History mcg/actuation nasal spray,suspension oxycodone-acetaminophen 5 mg-325 0.5 - 1 tab PO TID PRN pain Unknown History mg tablet cyclobenzaprine 10 mg tablet 10 mg PO HS MUSCLE SPASM 06/04/25 Unknown History Lactobacillus 25 billion 1 cap PO DAILY SUPPLMENT 06/11/25 Unknown History cell-Bifido 25 billion [id number] capsule cevimeline 30 mg capsule 1 cap PO DAILY DRY MOUTH 06/11/25 Unknown History cholecalciferol (vitamin D3) 50 50 mcg PO DAILY SUPPLEMENT 5 Unknown History mcg (2,000 unit) capsule (Vitamin D3) progesterone micronized 100 mg 100 mg PO QHS HORMONE REPLACMENT 1 Unknown History capsule bupropion HCl 150 mg 24 hr tablet, 150 mg PO DAILY 06/17/25 Unknown History extended release clopidogrel 75 mg tablet (Plavix) 75 mg PO DAILY #30 tabs 06/17/25 Unknown Rx gabapentin 100 mg capsule 100 mg PO DAILY 06/17/25 Unknown H istory potassium chloride 10 mEq 10 meq PO DAILY 06/17/25 Unknown H istory tablet,extended release prednisolone acetate 1 % eye 1 drp LEFT EYE 4X/DAY 06/17/25 Unk nown History drops,suspension timolol maleate 0.5 % eye drops 1 drp LEFT EYE BID 06/17/25 Unknow n History trazodone 100 mg tablet 100 mg PO QHS 06/17/25 Unknown His tory triamcinolone acetonide 0.025 % applic topical BID 06/17/25 Unknow n History topical cream Allergy/AdvReac Type Severity Reaction Status Date / Time hydrocodone bitartrate (Fro (more content not included)... Normal [facility] Extremity Lower without Cont raon 06-21-2025 Extremity Lower without Contra [facility] Imaging Services [address] [place], [place] [address] Extremity Lower without Contra MR#: [id number] Acct: [id number] Name: ALLIE RUTLEDGE Rep #: [id number] : 1970 F 55 From: Grant Lora MD PCP: Dr. Ifeoma Davis MD Status: REG CLI Study: Extremity Lower without Contra Date of Exam: Exam# [id number] Ordering Dr: Phillip Pozo DO PROCEDURE: EXTREMITY LOWER WITHOUT CONTRA 06/21/2025 REASON FOR EXAM: TEMPLATING FOR LEFT NURIS TECHNIQUE: Procedure Code: CTELWO Modality: CT Procedure: EXTREMITY LOWER WITHOUT CONTRA Coronal and Sagittal reconstruction series were provided. CONTRAST: None One or more dose reduction techniques were used (e.g., Automated exposure control, adjustment of the mA and/or kV according to patient size, use of iterative reconstruction technique). RADIATION DOSE SUMMARY: DLP: 800 mGycm COMPARISON: There is no comparison FINDINGS: There is moderate osteoarthritis with joint space narrowing and marginal osteophytes. There is no acute fracture or dislocation. Adjacent muscular structures appear intact. There is no visible joint effusion. Mineralization is normal. There is no suspicious lytic or blastic lesions. The pelvic bones appear intact. There is no significant atherosclerosis. CT/Extremity Lower without Contra IMPRESSION: There is moderate osteoarthritis with joint space narrowing and marginal osteophytes. Reading Location: [facility] CC: Dr. Ifeoma Davis MD; Dr. Phillip Pozo DO Corrections Officer: Signed Normal [facility] Fructosamineon 06-19-2025 FRUCTOSAMINE 212 umol/L Normal 0-285 [facility] Comment on above: Result Comment: Publ ished reference interval for apparently healthy subjects between age 20 and 60 is 205 - 285 umol/L and in a poorly controlled diabetic population is 228 - 563 umol/L with a mean of 396 umol/L. Performed at: [address] [id number] County Administrator: Regis Carballo PhD, Phone: [phone] Performed By: #### L 300.4310, L3400.0100, L501.5200, L501.9985, L300.3900, L100.0100, L500.2500 ####[facility] [address] [place], [address] MRSA/SAID NASAL SCREENon MRSA+SAID SCRN Reason for Exam: PRE OP MRSA MRSA Negative S. AUREUS S. aureus Negative Normal [facility] Comment on above: Performed By: #### B TSPAT, M144.080 ####[facility] [address] [place], [address] CNPNon 06-18-2025 CNPN Telephone (INTWS) AAMIRALLIE Juli ([id number]) 1970 F LV Date Time Provider Department 06/18/25 IFEOMA DAVIS During your visit today, we recorded the following information about you: Mallory Morrison RN 06/18/2025 11:23 AM Signed Patient calls to ask provider recommendation. Patient reports that she went to [facility] ER last evening for headache/right facial pain as instructed. CT was completed and Plavix 75 mg daily was recommended. Attempted to view [facility] ER records but not able to access through [facility]. Patient asking provider if that would be recommended. Patient isn't going to fill the prescription until she hears back from Dr. Davis. Also, noted the need for scheduling with vascular medicine. Patient reports that she is supposed to be seen on June 22 for this. I do not see an appt scheduled. Messaged scheduling to check into this and left other TE open. BRITTANY Lanza Chitra, MD 06/18/2025 11:45 AM Signed Well, I really think she should see vascular medicine before this decision to take an antiplatelet. How is her headache? Regards, Dara Sweet MD 06/18/2025 11:42 AM Signed Left message for patient to return call to PCP Team. When patient calls, please advise that PSS Dara Tinoco is/has reached out to Vascular Medicine at [facility] to have them coordinate with her for her appointments. If patient wishes to schedule herself with Vascular Medicine, please warm transfer her to [phone]. Dara Tinoco 06/18/2025 12:07 PM Signed Left message with patient's friend, Viviana, at [phone] as patient lost her cell phone and directed Dr. Davis to call her at that number. When patient calls, please schedule Vascular Medicine Consult. Allie Mcknight LPN 06/18/2025 12:51 PM Signed Patient returned call and went over notes below and assisted with transfer to criminal defense lawyer to get [facility] Med appt set up. Mallory Morrison RN 06/21/2025 9:16 AM Signed Scheduled 07/22/2025 Allergies As of Date: 06/18/2025 Noted Allergy Reaction DARVOCET A500 (PROPOXYPHENE N-GABRIEL*04/28/2012 [...] (HYDROCODONE-ACETAMINOP HE*04/28/2012 9 - Itching Date Reviewed: 06/14/2025 Reviewed by: Raiza Sawyer LPN - Fully Assessed Reason for Visit: Patient Question [1477] Prescriptions as of 06/21/2025 - meloxicam (MOBIC) 15 mg tablet Take [...] two times a day. - azithromycin (ZITHROMAX Z-SRINIVAS) 250 mg tablet 2 tablets by mouth [...] B-12 ORAL) Take by mouth once daily. (more content not included)... Normal [facility] Basic Metabolic Profile (BMP )on 06-17-2025 BUN/CRE 16.4 RATIO Normal - [facility] Comment on above: Performed By: #### L 300.4310, L3400.0100, L501.5200, L501.9985, L300.3900, L100.0100, L500.2500 ####[facility] [address] [place], [address] Calcium [Mass/Vol] 9.5 mg/dL Normal 7.6-11.0 [facility] Comment on above: Performed By: #### L 300.4310, L3400.0100, L501.5200, L501.9985, L300.3900, L100.0100, L500.2500 ####[facility] [address] [place], [address] Chloride [Moles/Vol] 101 mmol/L Normal 98-108 [facility] Comment on above: Performed By: #### L 300.4310, L3400.0100, L501.5200, L501.9985, L300.3900, L100.0100, L500.2500 ####[facility] [address] [place], [address] CO2 [Moles/Vol] 27.7 mmol/L Normal 21.0-32.0 [facility] Comment on above: Performed By: #### L 300.4310, L3400.0100, L501.5200, L501.9985, L300.3900, L100.0100, L500.2500 ####[facility] [address] [place], [address] Creatinine [Mass/Vol] 0.87 mg/dL Normal 0.70-1.20 [facility] Comment on above: Performed By: #### L 300.4310, L3400.0100, L501.5200, L501.9985, L300.3900, L100.0100, L500.2500 ####[facility] [address] [place], [address] GAP 11 Normal 5-15 [facility] Comment on above: Performed By: #### L 300.4310, L3400.0100, L501.5200, L501.9985, L300.3900, L100.0100, L500.2500 ####[facility] [address] [place], [address] GFR/1.73 sq M.predicted among non-blacks MDRD (S/P/Bld) [Vol rate/Area] 78 mL/min/{1.73_m2} Normal >60 [facility] Comment on above: Result Comment: mL/m in/1.73m2 CKD-EPI Creatinine Equation (2020) Performed By: #### L 300.4310, L3400.0100, L501.5200, L501.9985, L300.3900, L100.0100, L500.2500 ####[facility] [address] [place], [address] Glucose [Mass/Vol] 89 mg/dL Normal 70-99 [facility] Comment on above: Performed By: #### L 300.4310, L3400.0100, L501.5200, L501.9985, L300.3900, L100.0100, L500.2500 ####[facility] [address] [place], [address] Potassium [Moles/Vol] 4.3 mmol/L Normal 3.3-5.1 [facility] Comment on above: Performed By: #### L 300.4310, L3400.0100, L501.5200, L501.9985, L300.3900, L100.0100, L500.2500 ####[facility] [address] [place], [address] Sodium [Moles/Vol] 140 mmol/L Normal 133-145 [facility] Comment on above: Performed By: #### L 300.4310, L3400.0100, L501.5200, L501.9985, L300.3900, L100.0100, L500.2500 ####[facility] [address] [place], [address] Urea nitrogen [Mass/Vol] 14 mg/dL Normal 4-19 [facility] Comment on above: Performed By: #### L 300.4310, L3400.0100, L501.5200, L501.9985, L300.3900, L100.0100, L500.2500 ####[facility] [address] [place], [address] Brain/Head without Contrasto n 06-17-2025 Brain/Head without Contrast [facility] Imaging Services [address] [place] [address] Brain/Head without Contrast MR#: [id number] Acct: [id number] Name: ALLIE RUTLEDGE Rep #: [id number] : 1970 F 55 From: Manish June MD PCP: Dr. Ifeoma Davis MD Status: REG ER Study: Brain/Head without Contrast Date of Exam: 06/02 02/24 Exam# [id number] Ordering Dr: Patti Piña DO PROCEDURE: CT BRAIN/HEAD WITHOUT CONTRAST; CTA HEAD AND NECK WITH CONTRAST 06/17/2025 REASON FOR EXAM: HEADACHE, RIGHT FACE PAIN TECHNIQUE: Procedure Code: CTBR; CTCTA.HDNCK Modality: CT Procedure: BRAIN/HEAD WITHOUT CONTRAST; CTA HEAD AND NECK W/ CONTRAST Coronal and Sagittal reconstruction series were provided. 3D post processing was performed. Contrast: 100 cc of Isovue 370 intravenous contrast was administered. One or more dose reduction techniques were used (e.g., Automated exposure control, adjustment of the mA and/or kV according to patient size, use of iterative reconstruction technique. RADIATION DOSE SUMMARY: DLP: 1405.44 mGycm COMPARISON: None available. FINDINGS: CTA HEAD: Patent major intracranial arterial vasculature. No large vessel occlusion, flow-limiting stenosis, saccular aneurysm, or vascular malformation identified. Relatively hypoplastic caliber of the right JAM A1 segment compared to the left. Dural venous sinuses appear patent. CTA NECK: Conventional aortic arch branching. The left vertebral artery is almost entirely occluded from its origin, which reconstitutes distally at the V4 segment although with diminutive caliber, which has the appearance of either dissection versus intramural hematoma. The dominant right vertebral artery is patent, normal in course and caliber without aneurysm or dissection. No stenosis of the basilar artery. Bilateral cervical carotid arteries are patent. No aneurysm or dissection. Mixed calcified and noncalcified atheromatous plaque at the carotid bifurcations extending into the proximal ICAs, with mild no greater than 50% stenosis bilaterally of the proximal ICAs. Atherosclerotic plaque along the carotid siphons, with irregular moderate stenosis of the supraclinoid right ICA, and no significant stenosis on the left. NONCONTRAST CT HEAD: No acute intracranial hemorrhage, extra-axial collection, mass effect or evidence of acute infarct. Ventricles and subarachnoid spaces are normal in size. Absent [place] ocular lenses. Intact skull base and calvarium. Well-aerated paranasal sinuses and mastoid air cells. CT/Brain/Head without Contrast IMPRESSION: 1. No acute intracranial hemorrhage, mass-effect or evidence of acute infarct. 2. 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 Diminutive reconstitution at the distal V4 segment. Widely patent contralateral dominant right vertebral artery, and basilar artery. 3. Patent intracranial and bilateral cervical carotid arteries. No aneurysm. 4. Atherosclerotic plaque at the carotid bifurcation with mild stenosis of the bilateral proximal ICAs, and irregular moderate stenosis of the distal right ICA cavernous/supraclinoid segment. Findings communicated with provider Patti Piña 06/17/2025 at 6 p.m. NUMEROLOGIST. Reading Location: [facility] CC: Dr. Ifeoma Davis MD; Dr. Patti Piña, Corrections Officer: Signed Normal [facility] CBC W/Diff, Automatedon - Absolute Lymph 0.96 X10 3/uL Normal 0.83-4.51 [facility] Comment on above: Performed By: #### L 300.4310, L3400.0100, L501.5200, L501.9985, L300.3900, L100.0100, L500.2500 ####[facility] [address] [place], [place], [phone] Absolute Neut 5.1 X10 3/uL Normal 2.0-7.7 [facility] Comment on above: Performed By: #### L 300.4310, L3400.0100, L501.5200, L501.9985, L300.3900, L100.0100, L500.2500 ####[facility] [address] [place], [place], [phone] Basophils/100 WBC (Bld) 0.6 % Normal 0-1 [facility] Comment on above: Performed By: #### L 300.4310, L3400.0100, L501.5200, L501.9985, L300.3900, L100.0100, L500.2500 ####[facility] [address] [place], [address] Eosinophils/100 WBC (Bld) 1.9 % Normal 0-5 [facility] Comment on above: Performed By: #### L 300.4310, L3400.0100, L501.5200, L501.9985, L300.3900, L100.0100, L500.2500 ####[facility] [address] [place], [address] Erythrocyte distribution width (RBC) [Ratio] 13.2 % Normal 11.6-14.6 [facility] Comment on above: Performed By: #### L 300.4310, L3400.0100, L501.5200, L501.9985, L300.3900, L100.0100, L500.2500 ####[facility] [address] [place], [address] Hematocrit (Bld) [Volume fraction] 38.6 % Normal 37-47 [facility] Comment on above: Performed By: #### L 300.4310, L3400.0100, L501.5200, L501.9985, L300.3900, L100.0100, L500.2500 ####[facility] [address] [place], [address] Hemoglobin (Bld) [Mass/Vol] 12.3 g/dL Normal 12.0-15.0 [facility] Comment on above: Performed By: #### L 300.4310, L3400.0100, L501.5200, L501.9985, L300.3900, L100.0100, L500.2500 ####[facility] [address] [place], [address] IG% 0.400 Normal 0.0-0.9 [facility] Comment on above: Result Comment: IG% - Immature Granulocytes (promyelocytes, myelocytes and metamyelocytes) > 1% indicates that a LEFT SHIFT is Present. Performed By: #### L 300.4310, L3400.0100, L501.5200, L501.9985, L300.3900, L100.0100, L500.2500 ####[facility] [address] [place], [address] Lymphocytes/100 WBC (Bld) 13.9 % Low 19-41 [facility] Comment on above: Performed By: #### L 300.4310, L3400.0100, L501.5200, L501.9985, L300.3900, L100.0100, L500.2500 ####[facility] [address] [place], [address] MCH (RBC) [Entitic mass] 29.6 pg Normal 27.0-32.0 [facility] Comment on above: Performed By: #### L 300.4310, L3400.0100, L501.5200, L501.9985, L300.3900, L100.0100, L500.2500 ####[facility] [address] [place], [address] MCHC (RBC) [Mass/Vol] 31.9 g/dL Low 32-36 [facility] Comment on above: Performed By: #### L 300.4310, L3400.0100, L501.5200, L501.9985, L300.3900, L100.0100, L500.2500 ####[facility] [address] [place], [address] MCV (RBC) [Entitic vol] 92.8 fL Normal 81-99 [facility] Comment on above: Performed By: #### L 300.4310, L3400.0100, L501.5200, L501.9985, L300.3900, L100.0100, L500.2500 ####[facility] [address] [place], [address] Monocytes/100 WBC (Bld) 9.4 % Normal 0-10 [facility] Comment on above: Performed By: #### L 300.4310, L3400.0100, L501.5200, L501.9985, L300.3900, L100.0100, L500.2500 ####[facility] [address] [place], [address] Neutrophils/100 WBC (Bld) 73.8 % High 47-70 [facility] Comment on above: Performed By: #### L 300.4310, L3400.0100, L501.5200, L501.9985, L300.3900, L100.0100, L500.2500 ####[facility] [address] [place], [address] Nucleated RBC (Bld) [#/Vol] 0 10*3/uL Normal 0-5 [facility] Comment on above: Performed By: #### L 300.4310, L3400.0100, L501.5200, L501.9985, L300.3900, L100.0100, L500.2500 ####[facility] [address] [place], [address] Platelet mean volume (Bld) [Entitic vol] 10.5 fL Normal 6.2-12.0 [facility] Comment on above: Performed By: #### L 300.4310, L3400.0100, L501.5200, L501.9985, L300.3900, L100.0100, L500.2500 ####[facility] [address] [place], [address] Platelets (Bld) [#/Vol] 332 10*3/uL Normal 150-450 [facility] Comment on above: Performed By: #### L 300.4310, L3400.0100, L501.5200, L501.9985, L300.3900, L100.0100, L500.2500 ####[facility] [address] [place], [address] RBC (Bld) [#/Vol] 4.16 10*6/uL Low 4.2-5.4 [facility] Comment on above: Performed By: #### L 300.4310, L3400.0100, L501.5200, L501.9985, L300.3900, L100.0100, L500.2500 ####[facility] [address] [place], [address] RDW SD 45.3 fl High 35.1-43.9 [facility] Comment on above: Performed By: #### L 300.4310, L3400.0100, L501.5200, L501.9985, L300.3900, L100.0100, L500.2500 ####[facility] [address] [place], [address] WBC (Bld) [#/Vol] 6.9 10*3/uL Normal 4.4-11.0 [facility] Comment on above: Performed By: #### L 300.4310, L3400.0100, L501.5200, L501.9985, L300.3900, L100.0100, L500.2500 ####[facility] [address] [place], [address] CTA Head AND Neck W/ Contras ton 06-17-2025 CTA Head AND Neck W/ Contrast [facility] Imaging Services [address] [place] [address] CTA Head AND Neck W/ Contrast MR#: [id number] Acct: [id number] Name: ALLIE RUTLEDGE Rep #: [id number] : 1970 F 55 From: Manish June MD PCP: Dr. Ifeoma Davis MD Status: [facility] ER Study: CTA Head AND Neck W/ Contrast Date of Exam: Exam# [id number] Ordering Dr: Patti Piña DO PROCEDURE: CT BRAIN/HEAD WITHOUT CONTRAST; CTA HEAD AND NECK WITH CONTRAST 06/17/2025 REASON FOR EXAM: HEADACHE, RIGHT FACE PAIN TECHNIQUE: Procedure Code: CTBR; CTCTA.HDNCK Modality: CT Procedure: BRAIN/HEAD WITHOUT CONTRAST; CTA HEAD AND NECK W/ CONTRAST Coronal and Sagittal reconstruction series were provided. 3D post processing was performed. Contrast: 100 cc of Isovue 370 intravenous contrast was administered. One or more dose reduction techniques were used (e.g., Automated exposure control, adjustment of the mA and/or kV according to patient size, use of iterative reconstruction technique. RADIATION DOSE SUMMARY: DLP: 1405.44 mGycm COMPARISON: None available. FINDINGS: CTA HEAD: Patent major intracranial arterial vasculature. No large vessel occlusion, flow-limiting stenosis, saccular aneurysm, or vascular malformation identified. Relatively hypoplastic caliber of the right JAM A1 segment compared to the left. Dural venous sinuses appear patent. CTA NECK: Conventional aortic arch branching. The left vertebral artery is almost entirely occluded from its origin, which reconstitutes distally at the V4 segment although with diminutive caliber, which has the appearance of either dissection versus intramural hematoma. The dominant right vertebral artery is patent, normal in course and caliber without aneurysm or dissection. No stenosis of the basilar artery. Bilateral cervical carotid arteries are patent. No aneurysm or dissection. Mixed calcified and noncalcified atheromatous plaque at the carotid bifurcations extending into the proximal ICAs, with mild no greater than 50% stenosis bilaterally of the proximal ICAs. Atherosclerotic plaque along the carotid siphons, with irregular moderate stenosis of the supraclinoid right ICA, and no significant stenosis on the left. NONCONTRAST CT HEAD: No acute intracranial hemorrhage, extra-axial collection, mass effect or evidence of acute infarct. Ventricles and subarachnoid spaces are normal in size. Absent [place] ocular lenses. Intact skull base and calvarium. Well-aerated paranasal sinuses and mastoid air cells. CT/CTA Head AND Neck W/ Contrast IMPRESSION: 1. No acute intracranial hemorrhage, mass-effect or evidence of acute infarct. 2. 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 Diminutive reconstitution at the distal V4 segment. Widely patent contralateral dominant right vertebral artery, and basilar artery. 3. Patent intracranial and bilateral cervical carotid arteries. No aneurysm. 4. Atherosclerotic plaque at the carotid bifurcation with mild stenosis of the bilateral proximal ICAs, and irregular moderate stenosis of the distal right ICA cavernous/supraclinoid segment. Findings communicated with provider Patti Piña 06/17/2025 at 6 p.m. NUMEROLOGIST. Reading Location: [id number] CC: Dr. Ifeoma Davis MD; Dr. Patti Piña DO Corrections Officer: Signed [facility] Emergency Department Summary on 06-17-2025 Emergency Department Summary [facility] Medical Records Department [address] [place] [address] Emergency Department Summary 06/17/25 MR#: [id number] Acct: [id number] Name: ALLIE RUTLEDGE Rep #: [id number] : 1970 55 From: Patti Piña DO PCP: Dr. Ifeoma Davis MD Status:DEP ER Location: ED HPI History of Present Illness Chief Complaint: Headache Detail of Chief Complaint: Headache Informant: patient Narrative Narrative: Patient presents to the emergency department with complaint of headache that started at 3 PM. She has multiple intermittent episodes of sharp stabbing pain from the right side of her head that go down to the right side of her face. These are short-lived. She does have some pressure in the right side of her head. She spoke with her primary care physician who advised her to come in. Patient has history of pseudoxanthoma elasticum. She has been under increased stress as she was supposed to have a hip replacement next week and has gone through cardiology for clearance as well as GI. She is supposed to follow-up with vascular for clearance but they feel that she will likely be too high risk to have the surgery. [facility] Medical History (Updated 06/17/25 @ 19:[address] Patti Piña DO) Wears glasses Depression Anxiety High cholesterol Ambulates with cane GERD (gastroesophageal reflux disease) Non-smoker Hip arthritis Degenerative scoliosis Lumbar radiculopathy Spondylolisthesis History of trigger finger Fibromyalgia Restless legs Hot flashes Legal blindness of both eyes as defined in [place] PXE (pseudoxanthoma elasticum) Hypertension Home Medications ???Medication ???Instructions ???Recorded ???Last Taken ???Type atorvastatin 40 mg tablet 40 mg PO QHS HLD 01/17/17 Unknown History meloxicam 15 mg tablet 15 mg PO DAILY PAIN 11/20/21 Unkno wn History omeprazole 20 mg capsule,delayed 20 mg PO DAILY GERD 11/20/21 Unkno wn History release amlodipine 2.5 mg tablet 2.5 mg PO QDAY HTN 12/09/24 Unknow n History aspirin 81 mg tablet,delayed 81 mg PO QDAY HEART HEALTH 5 Unknown History release (Adult Low Dose Aspirin) escitalopram oxalate 10 mg tablet 10 mg PO QDAY ANXIETY 12/09/24 Un known History estradiol 0.1 mg/24 hr semiweekly 1 patch transdermal QWEEK HORMONE 12/09/24 Unknown History transdermal patch (Darling) REPLACEMENT lisinopril 10 1 tab PO QDAY HTN 12/09/24 Unknown History mg-hydrochlorothiazide 12.5 mg tablet magnesium 200 mg tablet 200 mg PO QDAY SUPPLEMENT 12/09/24 Unknown History zolpidem 5 mg tablet 5 mg PO QHS PRN sleep 12/09/24 Unk nown History fluticasone propionate 50 2 spray intranasal QDAY ALLERGIES 03/10/25 Unknown History mcg/actuation nasal spray,suspension oxycodone-acetaminophen 5 mg-325 0.5 - 1 tab PO TID PRN pain Unknown History mg tablet cyclobenzaprine 10 mg tablet 10 mg PO HS MUSCLE SPASM 06/04/25 Unknown History Lactobacillus 25 billion 1 cap PO DAILY SUPPLMENT 06/11/25 Unknown History cell-Bifido 25 billion wjhx-CPI-bbegh capsule cevimeline 30 mg capsule 1 cap PO DAILY DRY MOUTH 06/11/25 Unknown History cholecalciferol (vitamin D3) 50 50 mcg PO DAILY SUPPLEMENT 5 Unknown History mcg (2,000 unit) capsule (Vitamin D3) progesterone micronized 100 mg 100 mg PO QHS HORMONE REPLACMENT 1 Unknown History capsule bupropion HCl 150 mg 24 hr tablet, 150 mg PO DAILY 06/17/25 Unknown History extended release clopidogrel 75 mg tablet (Plavix) 75 mg PO DAILY #30 tabs 06/17/25 Unknown Rx gabapentin 100 mg capsule 100 mg PO DAILY 06/17/25 Unknown H istory potassium chloride 10 mEq 10 meq PO DAILY 06/17/25 Unknown H istory tablet,extended release prednisolone acetate 1 % eye 1 drp LEFT EYE 4X/DAY 06/17/25 Unk nown History drops,suspension timolol maleate 0.5 % eye drops 1 drp LEFT EYE BID 06/17/25 Unknow n History trazodone 100 mg tablet 100 mg PO QHS 06/17/25 Unknown His tory triamcinolone acetonide 0.025 % applic topical BID 06/17/25 Unknow n History topical cream Allergy/AdvReac Type Severity Reaction Status Date / Time hydrocodone bitartrate (From AdvReac Itching Verified 06/17/25 17:58 Vicodin) nitrofurantoin (From AdvReac Other Verified 06/17/25 17:58 Macrobid) nitrofurantoin AdvReac Other Verified 06/17/25 17:58 macrocrystalline (From Macrobid) propoxyphene (From AdvReac Other Verified 06/17/25 17:58 Darvocet-N) tramadol HCl (From Ultram) AdvReac Other Verified 06/17/25 17:58 Family History Father Lung cancer Mother COPD (chronic obstructive pulmonary disease) CVA (cerebral vascular accident) Son Myocardial infarction Other Breast cancer Ovarian cancer Surgi (more content not included)... [facility] Hemoglobin A1con 06-17-2025 HbA1c (Bld) [Mass fraction] 5.6 % Normal <=5.6 [facility] Comment on above: Result Comment: Norm al < 5.7 % Prediabetic 5.7 - 6.4 % Diabetic >or= 6.5 % Please note range changes. Performed By: #### L 300.4310, L3400.0100, L501.5200, L501.9985, L300.3900, L100.0100, L500.2500 ####[facility] [id number] [place], [place], [id number] MR/Jayjay 06-17-2025 MR/JOCE [facility] Medical Records Department [address] [place] [address] PAT - Anesthesia 06/17/25 1528 MR#: [id number] Acct: [id number] Name: ALLIE RUTLEDGE Rep #: [id number] : 1970 55 From: Rusty Guerrero MD PCP: Dr. 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 When Was Last Pacemaker Check QUESTION #4 FULL TEXT: You/Your Family Experience fever (hyperthermia) with Anesthesia Last Oral Intake Last Oral intake: Last Oral Intake NPO since Meds taken in AM with sips of water? 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 Female Yes 06/11/25 13:38 HX of Motion Sickness No 06/11/25 13:38 HX of N/V After Surgery No 06/11/25 13:38 Non-Smoker Yes 06/11/25 13:38 Duration of Surgery greater Yes 06/11/25 13:38 than 60 minutes Number of Risk Factors 3 06/11/25 13:38 PONV Score Moderate Risk 06/11/25 13:38 Height Weight Height Weight: Anesthesia: Height Weight Height 5 ft 1 in 06/03/25 15:26 Respiratory Assessment Respiratory Assessment - gas station supervisor: Respiratory Tract Infection Hx - gas station supervisor Hx Respiratory Tract Infection No 06/11/25 13:38 STOP Sleep Apnea STOP Sleep Apnea - gas station supervisor: STOP Sleep Apnea - gas station supervisor Hx Hypertension Yes 06/11/25 13:38 Hx Sleep Apnea Yes 06/11/25 13:38 CPAP No 06/11/25 13:38 BIPAP No 06/11/25 13:38 Do you snore loudly (louder than talking or can be heard Do you often feel tired/ fatigued/ sleepy during daytime? Has anyone observed you stop breathing during sleep? STOP Results Positive 06/11/25 13:38 QUESTION #5 FULL TEXT : Do you snore loudly (louder than talking or can be heard through closed doors)? 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 Specify any problems Hx of Preganancy in last 3 N/A 06/11/25 13:38 Months Nurse Filling Out Transfusion NBUCHER 06/11/25 13:38 Questions: Date: 06/11/25 06/11/25 13:38 Time: 13:40 06/11/25 13:38 Patient unable to answer at this time (ie. confused, unrespo /Reproduction History /Reproductive History - gas station supervisor: /Reproductive Hx- gas station supervisor Hx Now No 06/11/25 13:38 Gestational Age (in weeks): EDC: Hx Hx Para Hx Section SAB No 06/11/25 13:38 PFSH Medical History (Updated 06/11/25 @ 13:57 by Aimee Ha) Wears glasses Depression Anxiety High cholesterol Ambulates with cane GERD (gastroesophageal reflux disease) Non-smoker Hip arthritis Degenerative scoliosis Lumbar radiculopathy Spondylolisthesis History of trigger finger Fibromyalgia Restless legs Hot flashes Legal blindness of both eyes as defined in [place] PXE (pseudoxanthoma elasticum) Hypertension Home Medications ???Medication ???Instructions ???Recorded ???Last Taken ???Type atorvastatin 40 mg tablet 40 mg PO QHS HLD 01/17/17 Unknown History trazodone 50 mg tablet 50 mg PO QHS PRN insomnia 10/20/18 Unknown History meloxicam 15 mg tablet 15 mg PO DAILY PAIN 11/20/21 Unkno wn History omeprazole 20 mg capsule,delayed 20 mg PO DAILY GERD 11/20/21 Unkno wn History release amlodipine 2.5 mg tablet 2.5 mg PO QDAY HTN 12/09/24 Unknow n History aspirin 81 mg tablet,delayed 81 (more content not included)... [facility] Magnesiumon 06-17-2025 Magnesium [Mass/Vol] 2.1 mg/dL Normal 1.5-2.2 [facility] Comment on above: Performed By: #### L 300.4310, L3400.0100, L501.5200, L501.9985, L300.3900, L100.0100, L500.2500 ####[facility] [address] [place], [place], [phone](358) Partial Thromboplast Timeon 06-17-2025 aPTT Coag (Bld) [Time] 24.0 s Low 24.1-36.2 [facility] Comment on above: Performed By: #### L 300.4310, L3400.0100, L501.5200, L501.9985, L300.3900, L100.0100, L500.2500 ####[facility] [address] [place], [place], [phone]) Prothrombin Time w/INRon INR Coag (PPP) [Relative time] 0.9 {INR} [facility] Comment on above: Performed By: #### L 300.4310, L3400.0100, L501.5200, L501.9985, L300.3900, L100.0100, L500.2500 ####[facility] [address] [place], [address] PT Coag (PPP) [Time] 12.5 s Normal 11.7-14.9 [facility] Comment on above: Performed By: #### L 300.4310, L3400.0100, L501.5200, L501.9985, L300.3900, L100.0100, L500.2500 ####[facility] [address] [place], [address] Type AND Screen - PAT ONLYon 06-17-2025 Ab SCREEN GEL Negative [facility] Comment on above: Order Comment: Reaso n for Laboratory Test [id number] REPLACEMENT Performed By: #### B TSPAT, M100.651 ####[facility] [address] 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 She had 3 sections, arthroscopic knee 9 eye surgeries , not had any issues with any surgeries in the past. She did not need kathleen operative dvt prophylaxis for any of them though. Never had bleeding or clotting issue in the past history Do you have any specific inputs regarding pseudoxanthoma elasticum interfering with the regular kathleen operative dvt prophylaxis with LMWH? With regards to bleeding or clotting risk? This patient is a very very nice person who is legally blind but still leads a robust life and gives a lot to the community The hip is now limiting her life and she is anxious to get the hip replacement. Again thank you for any inputs on this., she is scheduled for jun 22 and cannot miss that date, she will be happy to see you if needed Regards, Iefoma Yu MD, MD 06/15/2025 5:15 PM Signed Please schedule Ifeoma Quevedo MD 06/16/2025 8:14 AM Signed This patient has a surgery scheduled on jun 22, Is it possible for us to get her in for vascular medication consult stat,. As a priority Please let me know what we need to do to make this possible. Regards, Dara Sweet MD 06/16/2025 4:52 PM Signed Spoke with Vascular Medicine Dowel Inspector located at [facility]. Patient would need 5 different appointments/tests before being able to be cleared for surgery, with the clearance appointment being on the day that the patient is currently scheduled for her surgery. Please advise. Ifeoma Matt MD 06/16/2025 5:16 PM Signed I tried calling patient 2 times , did not answer and could not leave a voice message Please let her know that she will need all that testing. As she is an increased chances for bleeding and clotting , and we are afraid that could hugely impact out comes. We do not want to have outcomes that are not good and her ending up with complications that could be life altering or fatal I understand that she is not excited about any delay in the hip replacement and we understand that, also sorry about it. But what we are doing is safest for her Regards, Mallory hAumada MD, BRITTANY 06/17/2025 8:56 AM Signed Chana with Dr. Hull's office calls to request surgical clearance forms as patient called them saying that provider gave her clearance. Notified Chana of message below from Dr. Davis. Chana reports she is cancelling surgery and will reach out to patient to let her know she needs to contact PCP office to schedule additional appointments to receive clearance. BRITTANY Lanza Stephanie, RN 06/17/2025 11:04 AM Signed Patient calls back and notified of below. Patient is upset about this. Patient is asking if Dr. Davis can give her a call back about this again? Patient states that her phone was on do not disturb and her phone not on this anymore. Patient would like to talk to Dr. Davis about this. Please review and advise, BRITTANY Benson Brittany L, MA 06/17/2025 3:01 PM Signed PCP advised of below. Will call at end of office visits to discuss with patient. Patient stopped by office asking provider to call friend Yesica # at [phone]. RISHI Kim Brittany L, MA 06/17/2025 4:57 PM Signed Per provider note below: please assist with scheduling of Vascular Medicine appointments. Ifeoma Davis MD 06/17/2025 6:47 PM Signed Spoke to patient in length the need for vascular consult to get the appropriate recommendation for DVT prophylaxis. She Is willing Please schedule juve Regards, Dara Sweet MD 06/21/2025 9:38 AM Signed Patient is scheduled for July 22. Clint Santizo RN 06/21/2025 10:24 AM Signed Chana- Dr. Pozo office reports patient was seen in [facility] ER on 06/17/25 for headache/blockage, and had CT done. Pt was advised to start plavix and asa (pt already takes asa). Chana is going to fax these notes to Dr. Davis today. Chana is concerned about pt's understanding of her instructions. Pt reported to Chana, she has not started the plavix yet because she is unsure if she should take it with her diagnoses. ER notes do not tell pt to wait. Pt told Chana her vascular appt is on 07-06-25 in [place]. Appt list shows pt's appt with vascular for pre-op clearance on 07/22/25 in [place]. Pt told Chana pcp cleared her for the total hip surgery. Chana aware pt has not been cleared and cancelled (more content not included)... Normal [facility] Cassi 06-10-2025 CNPN Telephone (INTMWS) ALLIE RUTLEDGE ([id number]) 1970 F LV Date Time Provider Department 06/10/25 IFEOMA DAVIS During your visit today, we recorded the following information about you: Jackie Freitas MA 06/10/2025 12:02 PM Signed Type of form: Medical Clearance for Surgery/Anesthesia ([facility]) for L Total Hip Arthroplasty Form received via fax When form is completed, Fax form to [phone] Form has been forwarded to Physician Desk: RISHI Barragan Brittany L, MA 06/10/2025 12:02 PM Signed Received completed form. PCP would like additional clearance from cariology, ophthalmology AND gastroenterology, noted on PCP clearance form. Completed PCP clearance faxed to [phone]. RISHI Kim Krystle, RN 06/10/2025 2:33 PM Addendum Patient calls to [...] - Fully Assessed Reason for Visit: Surgical clearance-[facility] [Other] Cmt: L total hip arthroplasty [...] two times a day. - azithromycin (ZITHROMAX Z-SRINIVAS) 250 mg tablet 2 tablets by mouth [...] by mouth. (more content not included)... [facility] Telephone (EIQ) ALLIE RUTLEDGE ([id number]) 1970 F Date Time Provider Department 06/10/25 CYNTHIA RAMOS EIQ During your visit today, we recorded the following information about you: Angelica Miranda 06/10/2025 2:40 PM Signed Patient is calling to let provider know that she is to have hip surgery 06/22 and they are requesting clearance from Dr Ramos, patient states forms was to be faxed to the office please advise the patient if she would need an appointment. Emy Hanks 06/14/2025 10:44 AM Signed Left message for patient that as of today there is not a clearance form on file for her. Informed that she can fax to [phone] and will try to expedite request. Allergies As of Date: 06/10/2025 Noted Allergy Reaction DARVOCET A500 (PROPOXYPHENE N-GABREIL*04/28/2012 1 - Mental Status Change NITROFURANTOIN 03/05/2020 [...] two times a day. - azithromycin (ZITHROMAX Z-SRINIVAS) 250 mg tablet 2 tablets by mouth [...] atherosclerosis [I65.29] 11/15/2015 PAD (peripheral artery disease) ([facility]) [I73.9] 11/15/2015 VHD (valvular heart disease) [...] Combined f (more content not included)... [facility] HIP, UNI W/ Pelvis 2-3 Views on 06-04-2025 HIP, UNI W/ Pelvis 2-3 Views [facility] Imaging Services [address] [place] [address] HIP, UNI W/ Pelvis 2-3 Views MR#: [id number] Acct: [id number] Name: ALLIE RUTLEDGE Rep #: [id number] : 1970 F 55 From: Don Sampson PCP: Dr. Ifeoma Davis MD Status: DEP AMB Study: HIP, UNI W/ Pelvis 2-3 Views Date of Exam: 11/24 Exam# [id number] Ordering Dr: Phillip Pozo DO PROCEDURE: HIP, [...] fracture or dislocation is seen. Reading Location: [place] [address] CC: Dr. Ifeoma Davis MD; Dr. Phillip Pozo DO Corrections Officer: Signed [facility] Orthopedic Visit Reporton Orthopedic Visit Report [facility] [facility] [address] [place] [address] OFFICE VISIT Date of Service: 06/04/25 MR#: [id number] Acct: [id number] Name: ALLIE RUTLEDGE Rep #: [id number] : 1970 Provider: Dr. 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 Phillip Pozo, DO 06/04/25 0912. Part of today???s visit was documented by [...] joint abou (more content not included)... [facility] Orthopedic Visit Reporton Orthopedic Visit Report [facility] [address] [place] [address] OFFICE VISIT Date of Service: 06/03/25 MR#: [id number] Acct: [id number] Name: ALLIE RUTLEDGE Rep #: [id number] : 1970 Provider: Dr. Michael Cameron MD Age/Sex: 55/F Location: [facility] Status: Signed Intake Vital Signs 12/09/24 13:28 [...] QDAY 12/09/24 06/03/25 H istory omega-3 720 wx-sfy-aur-fish cap PO 12/09/24 06/03/25 History oil-vit D3 [...] leg. Doi (more content not included)... [facility] CNOVon 05-27-2025 CNOV Office Visit (INTMWS ) ALLIE RUTLEDGE ([id number]) 1970 F Date Time Provider Department 05/27/25 9:20 AM IFEOMA DAVIS INTMWS During your visit today, we recorded the following information about you: Pulse Respiration Blood pressure Weight 87/minute 16/minute 107/71 65.7 kg Ifeoma Davis MD 05/27/2025 2:45 PM Signed Allie Bustos Aamir is a 55 year old female here [...] has ad (more content not included)... Normal [facility] Emergency Department Summary on 05-27-2025 Emergency Department Summary [facility] Medical Records Department [address] [place] [address] Emergency Department Summary 05/27/25 MR#: [id number] Acct: [id number] Name: ALLIE RUTLEDGE ANN Rep #: [id number] : 1970 55 From: Juan Manuel Turpin [...] similar symptoms: No Recent Illness/Hospitalization : No PFSH PFS Medical History Hip arthritis Degenerative scoliosis Lumbar [...] QDAY 12/09/24 Unknown Hi story omega-3 720 nj-geu-wxm-fish cap PO 12/09/24 Unknown History oil-vit D3 [...] Respiratory/Chest Respiratory/Ch (more content not included)... Normal [facility] Lipid 1996 panelon 5 Cholesterol [Mass/Vol] 144 mg/dL Normal <200 [facility] Comment on above: Order Comment: Speci men Type: BLOOD SPECIMENOrdering Facility: [facility] Address: [address] [place] [address] Result Comment: <200 mg/dL, Desirable 200-239 mg/dL, Borderline high >239 mg/dL, High Performed By: #### 2 4331-1 ####[facility] LABCLIA [id number] [place] [address] [place] Cholesterol in HDL [Mass/Vol] 53 mg/dL Normal >39 [facility] Comment on above: Order Comment: Brandan eaton Type: BLOOD SPECIMENOrdering Facility: [facility] Address: [address] [place] [address] Result Comment: 40-5 9 mg/dL, Acceptable >59 mg/dL, High: Negative risk factor for coronary heart disease <40 mg/dL, Low: Positive risk factor for coronary heart disease Performed By: #### 2 4331-1 ####[facility] LABCLIA [id number] [place] [address] [place] Cholesterol in LDL [Mass/Vol] 73 mg/dL Normal <100 [facility] Comment on above: Order Comment: Altafi angelito Type: BLOOD SPECIMENOrdering Facility: [facility] Address: [address] [place] [address] Result Comment: <100 mg/dL, Optimal 100-129 mg/dL, Near optimal/above optimal 130-159 mg/dL, Borderline high 160-189 mg/dL, High >189 mg/dL, Very high Secondary prevention optimal LDL Cholesterol levels are recommended to be <70 mg/dL LDL cholesterol is calculated using the Miranda-NIH equation. Performed By: #### 2 4331-1 ####[facility] LABCLIA [id number] [place] [address] [place] Cholesterol in LDL/Cholesterol in HDL [Mass ratio] 1.38 {ratio} Normal <2.54 [facility] Comment on above: Order Comment: Speci men Type: BLOOD SPECIMENOrdering Facility: [facility] Address: [address] [place] [address] Result Comment: Refe rence: 1. National Cholesterol Education Program ATP III Guideline At-A-Glance Quick Desk Reference: National Heart, Lung, and Blood [place]. National Institutes of Health. 2001: NIH Publication No. 01-3305. 2. An International Atherosclerosis Society position paper: global recommendations for the management of dyslipidemia: executive summary, Atherosclerosis. 2014: 232(2):410-413. Performed By: #### 2 4331-1 ####[facility] LABCLIA [id number] [place] [address] [place] Cholesterol in VLDL [Mass/Vol] 14 mg/dL Normal <30 [facility] Comment on above: Order Comment: Speci men Type: BLOOD SPECIMENOrdering Facility: [facility] Address: [address] [place] [address] Performed By: #### 2 4331-1 ####[facility] LABCLIA [id number] [place] [address] [place] Cholesterol non HDL [Mass/Vol] 91 mg/dL Normal <130 [facility] Comment on above: Order Comment: Speci men Type: BLOOD SPECIMENOrdering Facility: [facility] Address: [address] [place] [address] Result Comment: <130 mg/dL, Optimal 130-159 mg/dL, Near optimal/above optimal 160-189 mg/dL, Borderline high 190-219 mg/dL, High >219 mg/dL, Very high Secondary prevention optimal non HDL Cholesterol levels are recommended to be <100 mg/dL Performed By: #### 2 4331-1 ####[facility] LABCLIA [id number] [address] [place] Cholesterol.total/Cho lesterol in HDL [Mass ratio] 2.72 {ratio} Normal <5.10 [facility] Comment on above: Order Comment: Speci men Type: BLOOD SPECIMENOrdering Facility: [facility] Address: [address] [place] [address] Performed By: #### 2 4331-1 ####[facility] LABIA [id number] [address] STATES [place] FASTING TIME 13 hrs Normal [facility] Comment on above: Order Comment: Speci men Type: BLOOD SPECIMENOrdering Facility: [facility] Address: [address] [place] [address] Performed By: #### 2 4331-1 ####[facility] LABIA [id number] [address] [place] Triglyceride [Mass/Vol] 96 mg/dL Normal <150 [facility] Comment on above: Order Comment: Speci men Type: BLOOD SPECIMENOrdering Facility: [facility] Address: [address] [place] [address] Result Comment: <150 mg/dL, Normal 150-199 mg/dL, Borderline high 200-499 mg/dL, High >499 mg/dL, Very high Performed By: #### 2 4331-1 ####[facility] LABIA [id number] [address] [place] CNPMiranda 05-17-2025 CNPN Telephone (PMNA11) ALLIE RUTLEDGE ([id number]) 1970 F [place] Date Time Provider Department 05/17/25 AISLINN MCMULLEN PMNA11 During your visit today, we [...] by mouth once daily. - azithromycin (ZITHROMAX Z-SRINIVAS) 250 mg tablet 2 tablets by mouth [...] glaucoma (PO (more content not included)... Normal [facility] Magnetic resonance imaging r eportOrdered By: Brittaney Barth on 05-10-2025 Study report [facility] Imaging Services [address] [place] [address] Spine Lumbar (Routine) MR#: [id number] Acct: [id number] Name: ALLIE RUTLEDGE ANN Rep #: [id number] : 1970 F 55 From: Shaan Barth MD PCP: Dr. Ifeoma Davis MD Status: REG C WALLY Study:Spine Lumbar (Routine) Date of Exam: 05/07/25 Exam# [id number] Ordering Dr: Shauna Cameron MD PROCEDURE: SPINE [...] L1-2 with associated central stenosis. Reading Location: [id number]-[id number]-GV CC: Dr. Michael Cameron MD; Dr. Ifeoma Davis MD ~ Corrections Officer: Signed [facility] Spine Lumbar (Routine)on Spine Lumbar (Routine) [facility] Imaging Services [address] [place] [address] Spine Lumbar (Routine) MR#: [id number] Acct: [id number] Name: ALLIE RUTLEDGE Rep #: [id number] : 1970 F 55 From: Brittaney stacy MD PCP: Dr. Ifeoma Davis MD Status: REG CLI Study: Spine Lumbar (Routine) Date of Exam: 05/07/25 Exam# [id number] Ordering Dr: Michael Cameron MD PROCEDURE: SPINE [...] L1-2 with associated central stenosis. Reading Location: [id number] CC: Dr. Michael Cameron MD; Dr. Ifeoma Davis MD Corrections Officer: Signed [facility] 04-28-2025 [facility] Telephone (INTMWS) ALLIE RUTLEDGE ([id number]) 1970 F Date Time Provider Department 04/28/25 IFEOMA DAVIS INTMWS During your visit today, we recorded the following information about you: Mallory Morrison RN 04/28/2025 11:43 AM Signed Patient calls to report that the topical medication ordered for jose haddad isn't working to help the itch. Patient's daughter is a pharmacist and told her to request a steroid pill to help dry the spots up. Patient requests it be sent to [facility]. Please review and advise, BRITTANY Lanza Amanda, [...] Other Visit Diagnosis:Intertrigo [L30.4] Order(s):methylPREDNISo lone (MEDROL, SRINIVAS,) 4 mg Dose-PackAs instructed per packageDisp: 21 tabletRfl: 0 Prescriptions as of 04/29/2025 - methylPREDNISolone (MEDROL, SRINIVAS,) 4 mg Dose-Pack As instructed per package [...] daily for 10 days. 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 Normal [facility] CNOVon 04-22-2025 CNOV Office Visit (INTMWS ) ALLIE RUTLEDGE ([id number]) 1970 F [place] Date Time Provider Department 04/22/25 10:20 AM IFEOMA DAVIS During your visit today, we [...] Allie recently underwent eye surgery at the [facility] due to a significant decrease [...] also mentions a recent dental visit at [facility], where she discussed treatment options for her teeth, including bonding, Invisalign, and a crown. She expresses frustration with the cost of the proposed treatments and requests a more affordable plan. SOCIAL HISTORY[1] Past medical history, appointments, medications, allergies reviewed. Pertinent Lab/Diagnostic Studies are reviewed and discussed today Current Outpatient Medications: azithromycin (ZITHROMAX Z-SRINIVAS) 250 mg tablet guaiFENesin (MUCINEX) 600 mg [...] 3-dose seri (more content not included)... Normal [facility]INT[facility]WS[facility] ALLIE RUTLEDGE ([id number]) 1970 F Date Time Provider Department 04/22/25 IFEOMA DAVISFRAIBA During your visit today, we recorded the following information about you: Clint Brennan RN 04/22/2025 11:33 AM Signed [facility] Sade Javier called for clarification on Fluconazole 150 mg [...] daily for 10 days. - azithromycin (ZITHROMAX Z-SRINIVAS) 250 mg tablet 2 tablets by mouth [...] Choroidal neovascul (more content not included)... Normal [facility] L/S Spine Bending Flex/Lima 04-16-2025 L/S Spine Bending Flex/Ext [facility] Imaging Services [address] [place], [place] [id number] L/S Spine Bending Flex/Ext MR#: [id number] Acct: [id number] Name: ALLIE RUTLEDGE ANN Rep #: [id number] : 1970 F 54 From: Alan Perales MD PCP: Dr. Ifeoma Davis MD Status: DEP AMB Study: L/S Spine Bending Flex/Ext Date of Exam: 04/16 Exam# [id number] Ordering Dr: Sarah Segura PROCEDURE: L/S SPINE [...] pronounced at L3-4. Multilevel spondylolisthesis. Reading Location: [id number]-[id number] CC: KENA Perkins; Dr. Ifeoma Davis MD Corrections Officer: Signed Normal [facility] Orthopedic Visit Reporton Orthopedic Visit Report [facility] [address] [place] [address] [address] [place] [address] OFFICE VISIT Date of Service: 04/16/25 MR#: [id number] Acct: [id number] Name: ALLIE RUTLEDGE ANN Rep #: [id number] : 1970 Provider: Dr. Michael Cameron MD Age/Sex: 54/F Location: [facility] Status: Signed Intake Vital [...] QDAY 12/09/24 04/16/25 H istory omega-3 720 fk-ksa-gyq-fish cap PO 12/09/24 04/16/25 History oil-vit D3 [...] by me, Dr. Michael Cameron MD 04/16/25 0883. 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 She has became more of a fall risk due to the pain and stiffness. She does have weakness in her left leg and primarily uses the right leg to lead especially when going up steps. Dr. Betancourt did prescribe her Percocet yesterday for rosanne (more content not included)... [facility]WOUCA[facility] ALLIE RUTLEDGE ([id number]) 1970 F Date Time Provider Department 04/11/25 [...] Aislinn Mcmullen PA-C 04/11/2025 1:41 PM Signed [facility] NOTE Ifeoma Davis MD [address] [facility] [address] Allie Rutledge is a 54-year-old female with [...] the care of multiple specialists at the [facility]. She also has a history [...] Dr. Cynthia Ramos M.D. [place] [address] SOCIAL HISTORY[3] Physical Exam: BP 110/62 Pulse [...] on sandi (more content not included)... Normal [facility] (OPHTMN) ALLIE RUTLEDGE ([id number]) 1970 F Date Time Provider Department 04/03/25 REYNALDO ALFORD During your visit today, we recorded the [...] concerns and asked them to call back [phone] at any time when available to discuss [...] left eye,*11/15/2022 (more content not included)... Normal [facility] Cassi 03-31-2025 [facility] Tele[facility] (INTMWS) ALLIE RUTLEDGE ([id number]) 1970 F [place] Date Time Provider Department 03/31/25 IFEOMA DAVIS During your visit today, we [...] of ag (more content not included)... Normal [facility] Cassi 03-30-2025 [facility] Telephone (OPHTMN) ALLIE RUTLEDGE ([id number]) 1970 F [place] Date Time Provider Department 03/30/25 ADRIANA TALBERT OPHENRIQUEN During your visit today, we recorded the following information about you: Gely Plascencia 03/30/2025 2:48 PM Signed The patient reports experiencing tearing from the left eye approximately four to five times daily. Is this considered normal? [phone] sx: 03/25/2025 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 [[id number]] - Eye - Left Adriana Talbert MD 03/30/2025 5:23 PM Signed YES. I can see her in [place] tomorrow (Sat) if she wants. Otherwise she [...] 01/29/2018 Sec (more content not included)... [facility] ALLIE RUTLEDGE ([id number]) 1970 F Date Time Provider Department 03/26/25 BRITTANEY MKCEON OPHN During your visit today, we recorded [...] The eye clinic can be reached at [phone] and you can ask to speak to the adoption services manager montessori preschool teacher. Brittaney Mckeon MD Ophthalmology Resident, [facility] Brittaney Mckeon MD 03/26/2025 8:50 PM Signed [...] [I73.9] 11/15/2015 (more content not included)... Normal [facility] ANES POSTPROC EVALon 025 ANES POSTPROC EVAL HNO ID: [id number] Author: JUSTINE GALVAN MD Service: ? Author Type: Anesthesiologist Type: Anesthesia Postprocedure Evaluation Filed: 03/25/2025 13:36 Note Text: POST ANESTHESIA EVALUATION NOTE : 1970 Procedure Summary Date: 03/25/25 Room / Location: [place] [address] / [facility] Anesthesia Start: 1140 Anesthesia Stop: 1232 Procedure: [...] March 25, 2025 TIME: 1:36 PM CSN: [id number] Normal [facility] ANES PRE-OPon 03-25-2025 ANES PRE-OP HNO ID: [id number] Author: JUSTINE GALVAN MD Service: ? Author Type: Anesthesiologist Type: Anesthesia Preprocedure Evaluation Filed: 03/25/2025 10:55 Note Text: ANESTHESIOLOGY DAY OF SURGERY NOTE : 1970 Procedure Information Date/Time: 03/25/25 1201 Procedure: 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 (Left: Eye) Location: [place] [address] / [facility] Surgeons: Adriana Talbert MD Estimated body mass [...] March 25, 2025 TIME: 10:55 AM CSN: [id number] Normal [facility] OPERATIVE NOon 03-25-2025 OPERATIVE NO HNO ID: [id number] Author: ADRIANA TALBERT MD Service: Ophthalmology Author Type: Physician Type: Operative Report Filed: 03/25/2025 12:38 Note Text: OPERATIVE REPORT NAME: Allie Rutledge LOG ID: [id number] SURGERY DATE: 03/25/2025 INCISION/PROCEDURE START TIME: 11:54 [...] qualified resident was available and a skilled visitor services assistant was necessary to complete the case I/primary surgeon/proceduralist performed the procedure with assistance. The fellow was needed for exposure of tissues and assistance with hemostasis. Adriana Talbert M.D. Normal [facility] Basic metabolic 2000 panelOr dered By: Mahsa Aponte on 03-24-2025 Anion gap [Moles/Vol] 12 mmol/L 8 - 15 mmol/L [facility] Calcium [Mass/Vol] 9.6 mg/dL 8.5 - 10. 2 mg/dL [facility] Chloride [Moles/Vol] 99 mmol/L 98 - 10 7 mmol/L [facility] CO2 [Moles/Vol] 25 mmol/L 22 - 30 mmol/L [facility] Creatinine [Mass/Vol] 0.99 mg/dL High 0.58 - 0.96 mg/dL [facility] GFR/1.73 sq M.predicted among non-blacks MDRD (S/P/Bld) [Vol rate/Area] 67 mL/min/{1.73_m2} - PINF [facility] Comment on above: Estimated Glomerular [...] [Mass/Vol] 94 mg/dL 74 - 99 mg/dL [facility] Comment on above: The [place] Diabete s Association (ADA) provides guidance for [...] Standards of Medical Care in Diabetes 2016, [place] Diabetes Association. Diabetes Care. 2016.39(Suppl 1). Interpretation and review of laboratory results Abnormal [facility] Potassium [Moles/Vol] 4.1 mmol/L 3.7 - 5.1 mmol/L [facility] Sodium [Moles/Vol] 136 mmol/L 136 - 144 mmol/L [facility] Urea nitrogen [Mass/Vol] 20 mg/dL 7 - 21 mg/dL [facility] Basic metabolic 2000 panelon 03-24-2025 Anion gap [Moles/Vol] 12 mmol/L Normal 8-15 [facility] Comment on above: Order Comment: Speci men Type: BLOOD SPECIMENOrdering Facility: [facility] Address: [address] [place] [address] Performed By: #### 2 4321-2 ####[facility] YAYA DAMIANNCLIA [id number] [place] [address] [place] Calcium [Mass/Vol] 9.6 mg/dL Normal 8.5-10.2 [facility] Comment on above: Order Comment: Speci men Type: BLOOD SPECIMENOrdering Facility: [facility] Address: [address] [place] [address] Performed By: #### 2 4321-2 ####[facility]OSPITALJOSSELINELIA [id number] [place] [address] [place] Chloride [Moles/Vol] 99 mmol/L Normal 98-107 [facility] Comment on above: Order Comment: Speci men Type: BLOOD SPECIMENOrdering Facility: [facility] Address: [address] [place] [address] Performed By: #### 2 4321-2 ####[facility]ITALNCLIA [id number] [place] [address] [place] CO2 [Moles/Vol] 25 mmol/L Normal 22-30 [facility] Comment on above: Order Comment: Speci men Type: BLOOD SPECIMENOrdering Facility: [facility] Address: [address] [place] [address] Performed By: #### 2 4321-2 ####[facility]ITALNCLIA [id number] [place] [address] [place] Creatinine [Mass/Vol] 0.99 mg/dL High 0.58-0.96 [facility] Comment on above: Order Comment: Speci men Type: BLOOD SPECIMENOrdering Facility: [facility] Address: [address] [place] [address] Performed By: #### 2 4321-2 ####[facility] [id number] [place] [address] [place] eGFRcr SerPlBld CKD-EPI 2020 67 mL/min/1.73m??? Normal >=60 [facility] Comment on above: Order Comment: Brandan eaton Type: BLOOD SPECIMENOrdering Facility: [facility] Address: [address] [place] [address] Result Comment: Zaria mated Glomerular Filtration Rate [...] actual GFR. Performed By: #### 2 4321-2 ####[facility] [id number] [place] [address] [place] Glucose [Mass/Vol] 94 mg/dL Normal 74-99 [facility] Comment on above: Order Comment: Brandan eaton Type: BLOOD SPECIMENOrdering Facility: [facility] Address: [address] [place] [address] Result Comment: The [place] Diabetes Association (ADA) provides guidance for cutoff [...] Standards of Medical Care in Diabetes 2016, [place] Diabetes Association. Diabetes Care. 2016.39(Suppl 1). Performed By: #### 2 4321-2 ####[facility] [id number] [place] [address] [place] Potassium [Moles/Vol] 4.1 mmol/L Normal 3.7-5.1 [facility] Comment on above: Order Comment: Speci men Type: BLOOD SPECIMENOrdering Facility: [facility] Address: [address] [place] [address] Performed By: #### 2 4321-2 ####[facility] MILLWJOSSELINELIA [id number] [place] [address] [place] Sodium [Moles/Vol] 136 mmol/L Normal 136-144 [facility] Comment on above: Order Comment: Speci men Type: BLOOD SPECIMENOrdering Facility: [facility] Address: [address] [place] [address] Performed By: #### 2 4321-2 ####[facility] HOSPITALROS [id number] [place] [address] [place] Urea nitrogen [Mass/Vol] 20 mg/dL Normal 7-21 [facility] Comment on above: Order Comment: Speci men Type: BLOOD SPECIMENOrdering Facility: [facility] Address: [address] [place] [address] Performed By: #### 2 4321-2 ####[facility] HOSPITALLIA [id number] [place] [address] [place] CBC W Auto Differential pane l (Bld)on 03-24-2025 Basophils (Bld) [#/Vol] 0.05 10*3/uL [facility] Basophils/100 WBC (Bld) 0.6 % [facility] Differential cell count method Nom (Bld) Auto [facility] Eosinophils (Bld) [#/Vol] 0.23 10*3/uL [facility] Eosinophils/100 WBC (Bld) 2.9 % [facility] Erythrocyte distribution width (RBC) [Ratio] 12.7 % 11.5 - 15.0 % [facility] Hematocrit (Bld) [Volume fraction] 36.8 % 36.0 - 46.0 % [facility] Hemoglobin (Bld) [Mass/Vol] 12.1 g/dL 11.5 - 15.5 g/dL [facility] Immature granulocytes (Bld) [#/Vol] 0.04 10*3/uL [facility] Immature granulocytes/100 WBC (Bld) 0.5 % [facility] Lymphocytes (Bld) [#/Vol] 1.31 10*3/uL [facility] Lymphocytes/100 WBC (Bld) 16.7 % [facility] MCH (RBC) [Entitic mass] 29.9 pg 26.0 - 34.0 pg [facility] MCHC (RBC) [Mass/Vol] 32.9 g/dL 30.5 - 36.0 g/dL [facility] MCV (RBC) [Entitic vol] 90.9 fL 80.0 - 100.0 fL [facility] Monocytes (Bld) [#/Vol] 0.85 10*3/uL [facility] Monocytes/100 WBC (Bld) 10.8 % [facility] Neutrophils (Bld) [#/Vol] 5.38 10*3/uL [facility] Neutrophils/100 WBC (Bld) 68.5 % [facility] Nucleated RBC (Bld) [#/Vol] [facility] Nucleated RBC/100 WBC (Bld) [Ratio] 0 % /100 WBC [facility] Platelet mean volume (Bld) [Entitic vol] 9.8 fL 9.0 - 12.7 fL [facility] Platelets (Bld) [#/Vol] 375 10*3/uL [facility] RBC (Bld) [#/Vol] 4.05 10*6/uL 3.90 - 5.2 0 m/uL [facility] WBC (Bld) [#/Vol] 7.86 10*3/uL [facility] Basophils (Bld) [#/Vol] 0.05 10*3/uL Normal <0.11 [facility] Comment on above: Order Comment: Speci men Type: BLOOD SPECIMENOrdering Facility: [facility] Address: [address] [place], [place] [address] Performed By: #### 5 7021-8 ####[facility] YAYA HWANGBRIERFIELDROS [id number] [place] [address] [place] Basophils/100 WBC (Bld) 0.6 % Normal [facility] Comment on above: Order Comment: Speci men Type: BLOOD SPECIMENOrdering Facility: [facility] Address: [address] [place] [address] Performed By: #### 5 7021-8 ####[facility] [id number] [place] [address] [place] Differential cell count method Nom (Bld) Auto Normal [facility] Comment on above: Order Comment: Speci men Type: BLOOD SPECIMENOrdering Facility: [facility] Address: [address] [place] [address] Performed By: #### 5 7021-8 ####[facility]ITALNCLI [id number] [place] [address] [place] Eosinophils (Bld) [#/Vol] 0.23 10*3/uL Normal <0.46 [facility] Comment on above: Order Comment: Speci men Type: BLOOD SPECIMENOrdering Facility: [facility] Address: [address] [place] [address] Performed By: #### 5 7021-8 ####[facility] [id number] [place] [address] [place] Eosinophils/100 WBC (Bld) 2.9 % Normal [facility] Comment on above: Order Comment: Speci men Type: BLOOD SPECIMENOrdering Facility: [facility] Address: [address] [place] [address] Performed By: #### 5 7021-8 ####[facility]ITALNCLI [id number] [place] [address] [place] Erythrocyte distribution width (RBC) [Ratio] 12.7 % Normal 11.5-15.0 [facility] Comment on above: Order Comment: Speci men Type: BLOOD SPECIMENOrdering Facility: [facility] Address: [address] [place] [address] Performed By: #### 5 7021-8 ####[facility] JAIDENASHISH [id number] [place] [address] [place] Hematocrit (Bld) [Volume fraction] 36.8 % Normal 36.0-46.0 [facility] Comment on above: Order Comment: Speci men Type: BLOOD SPECIMENOrdering Facility: [facility] Address: [address] [place] [address] Performed By: #### 5 7021-8 ####[facility]NC[facility] [id number] [place] [address] [place] Hemoglobin (Bld) [Mass/Vol] 12.1 g/dL Normal 11.5-15.5 [facility] Comment on above: Order Comment: Speci men Type: BLOOD SPECIMENOrdering Facility: [facility] Address: [address] [place] [address] Performed By: #### 5 7021-8 ####[facility] [id number] [place] [address] [place] Immature granulocytes (Bld) [#/Vol] 0.04 10*3/uL Normal <0.10 [facility] Comment on above: Order Comment: Speci men Type: BLOOD SPECIMENOrdering Facility: [facility] Address: [address] [place] [address] Performed By: #### 5 7021-8 ####[facility]ITALNCLIA [id number] [place] [address] [place] Immature granulocytes/100 WBC (Bld) 0.5 % Normal [facility] Comment on above: Order Comment: Speci men Type: BLOOD SPECIMENOrdering Facility: [facility] Address: [address] [place] [address] Performed By: #### 5 7021-8 ####[facility] MILLWNCLIA [id number] [place] [address] [place] Lymphocytes (Bld) [#/Vol] 1.31 10*3/uL Normal 1.00-4.00 [facility] Comment on above: Order Comment: Speci men Type: BLOOD SPECIMENOrdering Facility: [facility] Address: [address] [place] [address] Performed By: #### 5 7021-8 ####[facility] HOSPITALLIA [id number] [place] [address] [place] Lymphocytes/100 WBC (Bld) 16.7 % Normal [facility] Comment on above: Order Comment: Speci men Type: BLOOD SPECIMENOrdering Facility: [facility] Address: [address] [place] [address] Performed By: #### 5 7021-8 ####[facility] M[facility] [id number] [place] [address] [place] MCH (RBC) [Entitic mass] 29.9 pg Normal 26.0-34.0 [facility] Comment on above: Order Comment: Speci men Type: BLOOD SPECIMENOrdering Facility: [facility] Address: [address] [place] [address] Performed By: #### 5 7021-8 ####[facility] [id number] [place] [address] [place] MCHC (RBC) [Mass/Vol] 32.9 g/dL Normal 30.5-36.0 [facility] Comment on above: Order Comment: Speci men Type: BLOOD SPECIMENOrdering Facility: [facility] Address: [address] [place] [address] Performed By: #### 5 7021-8 ####[facility]ITALNCLIA [id number] [place] [address] [place] MCV (RBC) [Entitic vol] 90.9 fL Normal 80.0-100.0 [facility] Comment on above: Order Comment: Speci men Type: BLOOD SPECIMENOrdering Facility: [facility] Address: [address] [place] [address] Performed By: #### 5 7021-8 ####[facility] [id number] [place] [address] [place] Monocytes (Bld) [#/Vol] 0.85 10*3/uL Normal <0.87 [facility] Comment on above: Order Comment: Speci men Type: BLOOD SPECIMENOrdering Facility: [facility] Address: [address] [place] [address] Performed By: #### 5 7021-8 ####[facility] [id number] [place] [address] [place] Monocytes/100 WBC (Bld) 10.8 % Normal [facility] Comment on above: Order Comment: Speci men Type: BLOOD SPECIMENOrdering Facility: [facility] Address: [address] [place] [address] Performed By: #### 5 7021-8 ####[facility] [id number] [place] [address] [place] Neutrophils (Bld) [#/Vol] 5.38 10*3/uL Normal 1.45-7.50 [facility] Comment on above: Order Comment: Speci men Type: BLOOD SPECIMENOrdering Facility: [facility] Address: [address] [place] [address] Performed By: #### 5 7021-8 ####[facility] [id number] [place] [address] [place] Neutrophils/100 WBC (Bld) 68.5 % Normal [facility] Comment on above: Order Comment: Speci men Type: BLOOD SPECIMENOrdering Facility: [facility] Address: [address] [place] [address] Performed By: #### 5 7021-8 ####[facility] JAIDENBRIERFIELDROS [id number] [place] [address] [place] Nucleated RBC (Bld) [#/Vol] 10*3/uL Normal <0.01 [facility] Comment on above: Order Comment: Speci men Type: BLOOD SPECIMENOrdering Facility: [facility] Address: [address] [place] [address] Performed By: #### 5 7021-8 ####[facility] [id number] [place] [address] [place] Nucleated RBC/100 WBC (Bld) [Ratio] 0.0 /100 WBC Normal [facility] Comment on above: Order Comment: Speci men Type: BLOOD SPECIMENOrdering Facility: [facility] Address: [address] [place] [address] Performed By: #### 5 7021-8 ####[facility] [id number] [place] [address] [place] Platelet mean volume (Bld) [Entitic vol] 9.8 fL Normal 9.0-12.7 [facility] Comment on above: Order Comment: Speci men Type: BLOOD SPECIMENOrdering Facility: [facility] Address: [address] [place] [address] Performed By: #### 5 7021-8 ####[facility] HOSPITALLI [id number] [place] [address] [place] Platelets (Bld) [#/Vol] 375 10*3/uL Normal 150-400 [facility] Comment on above: Order Comment: Speci men Type: BLOOD SPECIMENOrdering Facility: [facility] Address: [address] [place] [address] Performed By: #### 5 7021-8 ####[facility] CENTERWNCLIA [id number] [place] [address] [place] RBC (Bld) [#/Vol] 4.05 10*6/uL Normal 3.90-5.[address] [facility] Comment on above: Order Comment: Speci men Type: BLOOD SPECIMENOrdering Facility: [facility] Address: [address] [place] [address] Performed By: #### 5 7021-8 ####[facility]ITALNCLIA [id number] [place] [address] [place] WBC (Bld) [#/Vol] 7.86 10*3/uL Normal 3.70-11.[address] [facility] Comment on above: Order Comment: Speci men Type: BLOOD SPECIMENOrdering Facility: [facility] Address: [address] [place] [address] Performed By: #### 5 7021-8 ####[facility]ITALNCLIA [id number] [address] [place] Cassi 03-24-20[facility] ALLIE RUTLEDGE ([id number]) 1970 F LV Date Time Provider Department 03/24/25 JANET MARTINEZ During your visit today, we recorded the following information about you: Jackelin Fields 03/24/2025 9:42 AM Signed Allie Rutledge CCF# [id number] Patient calling w/update BCL Contact not working Leaking fluid still, face is wet and sticky Janet Martinez MD filed at 03/23/2025 3:55 PM Status: Signed Urgent visit for bleb leak OS Sent by [facility] doctor for bleb leak OS X [...] Fully Assessed Reason for Visit: Patient Question [3007] Prescriptions as of 03/24/2025 - moxifloxacin (VIGAMOX) [...] once daily. - CPAP/BIPAP/OTHER APAP 5-18 cmH2O [facility] - zolpidem (AMBIEN) 5 mg tablet [...] The medications (more content not included)... Normal [facility] HISTORY PHYSICALon HISTORY PHYSICAL HNO ID: [id number] Author: EMILY CHAPARRO APRN.ADMINISTRATIVE INTERN Service: ? Author Type: Nurse Practitioner Type: [...] Assessment: c/w statin PAD (peripheral artery disease) (HCC) Assessment: 20-39% bilateral carotid artery stenosis per [...] large neck Non-male patient STOP-Bang Score: 3 [id number] Score: Age: <65 Sex: female CHF history: No Hypertension history: Yes Stroke/TIA/thromboembol ism history: No Vascular disease history: Yes Diabetes history: No [id number] Score: 3 ARISCAT Score: Age: 51-80 Preoperative [...] visit for bleb leak OS Sent by [facility] doctor for bleb leak OS X 4 days IOP was 0 yesterday Today 03/23/2025 Brisk leak OS - IOP 7.8 - AC deep - no choroidals - Discussed conservative management vs (more content not included)... Normal [facility] 03-23-2025 [facility] Telephone (OPHTSK) ALLIE RUTLEDGE ([id number]) 1970 F LV Date Time Provider Department 03/23/25 CYNTHIA RAMOS OPHTSK During your visit today, we recorded the following information about you: Janet Rivero, BRITTANY 03/23/2025 9:54 AM Signed Spoke with patient. Sent the following message to Dr. Ramos in a Urgent Secure Chat regarding conversation: Received chart notes from [facility] Ankur Curtis MD. Patient has loose [...] 07. Maybe its better to go to [facility] to be cared for Left message for patient to call the office to obtain the above information. Barbie Alicea reaching out to [facility] scheduling to find the availability of a cardiac exercise specialist to take over patient care with Dr. Ramos [place] country. Janet Rivero RN March 23, 2025 10:00 AM Baribe Alicea 03/23/2025 11:01 AM Signed Appointment scheduled [...] once daily. - CPAP/BIPAP/OTHER APAP 5-18 cmH2O [facility] - zolpidem (AMBIEN) 5 mg tablet [...] - aspirin, (more content not included)... Normal [facility] FUNDUS PHOTOS OU (BOTH EYES) on 03-23-2025 [facility] No Panel Informationon 03-23 Radiology Study observation (narrative) [facility] OCT OPTIC NERVE CIRRUS OU (B OTH EYES)on 03-23-2025 [facility] PACHYMETRY OU (BOTH EYES)on 03-23-2025 [facility] Radiology Study observation (narrative) [facility] SLIT LAMP PHOTOS OU (BOTH EY ES)on 03-23-2025 [facility] Lumbar Spine 2 or 3 Viewson 03-10-2025 Lumbar Spine 2 or 3 Views [facility] Services [address] [place] [address] Lumbar Spine 2 or 3 Views MR#: [id number] Acct: [id number] Name: ALLIE RUTLEDGE Rep #: [id number] : 1970 F 54 From: Alan Perales MD PCP: Dr. Ifeoma Davis MD Status: DEP AMB Study: Lumbar Spine 2 or 3 Views Date of Exam: Exam# [id number] Ordering Dr: Phillip Pozo DO PROCEDURE: LUMBAR SPINE 2 OR 3 VIEWS 03/10/2025 REASON FOR EXAM: CHRONIC BACK PAIN TECHNIQUE: LUMBAR SPINE 2 OR 3 VIEWS COMPARISON: None. FINDINGS: No evidence of acute fracture or dislocation. Levoscoliosis. Eoel-bp-xbxsrxdx discogenic degenerative changes of the visualized spine. RAD/Lumbar Spine 2 or 3 Views IMPRESSION: Spondylosis. Levoscoliosis. Reading Location: [id number] CC: Dr. Ifeoma Davis MD; Dr. Phillip Pozo DO Corrections Officer: Signed Normal [facility] Orthopedic Visit Reporton Orthopedic Visit Report [facility] [address] [place] [address] OFFICE VISIT Date of Service: 03/10/25 MR#: [id number] Acct: [id number] Name: ALLIE RUTLEDGE Rep #: [id number] : 1970 Provider: Dr. Phillip goldman DO Age/Sex: 54/F Location: [facility].ANTIONETTE Status: Signed Intake Vital [...] QDAY 12/09/24 03/10/25 H istory omega-3 720 tw-yvg-utd-fish cap PO 12/09/24 03/10/25 History oil-vit D3 [...] made by me, Dr. Phillip Pozo, DO 03/10/25 0800. Part of today???s visit [...] Dr. Betancourt. (more content not included)... [facility] ([facility] ALLIE RUTLEDGE ([id number]) 1970 F [place] Date Time Provider Department 03/02/25 12:45 PM [place] NURSE HALLIE During your visit today, we recorded the [...] once daily. 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 (more content not included)... Normal [facility] Cassi 02-25-2025 CNPN Telephone (INTMWS) ALLIE RUTLEDGE ([id number]) 1970 F LV Date Time Provider Department 02/25/25 IFEOMA DAVIS During your visit today, we recorded the following information about you: Spring Peñaloza RN 02/25/2025 1:29 PM Signed Pt called in and was asking if she was up to date on her TDAP vaccine, because she is going to visit her new grand baby. Please place the order for the vaccine as she will be coming in to get this with [place] nurse on 03/03/25. Spring Peñaloza RN Allergies [...] once daily. 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 Normal [facility] Cassi 01-12-2025 [facility] Telephone (KAYLIE) ALLIE RUTLEDGE ([id number]) 1970 F LV Date Time Provider Department [...] once daily. 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 [facility] ALLIE RUTLEDGE ([id number]) 1970 F [place] Date Time Provider Department 01/12/25 IFEOMA DAVIS INTMWS During your visit today, we recorded the following information about you: Angelica Arreola RN 01/12/2025 12:21 PM Addendum Patient reports she has lost her blindness renzo. States she spoke with her insurance company [employer] and they state for PCP to write [...] LPN 01/13/2025 9:13 AM Signed Roman from [facility] calling said they do not carry that [...] eye [H54.0X34] Order(s):DME SUPPLY OR ACCESSORY, NOS [[id number]] Order #: [id number] Prescriptions as of 01/13/2025 - meloxicam (MOBIC) [...] once daily. 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 Normal [facility] (CARLT[facility] ALLIE RUTLEDGE ([id number]) 1970 F [place] Date Time Provider Department [...] results and sent her CPAP orders to [facility] in [place]. They should be reaching out to her to set up machine. JOLIE Taylor M Robin, RN 12/30/2024 11:53 AM Signed Pt returned call [...] daily. 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 She [...] - P (more content not included)... Normal [facility] POLYSOMNOGRAM (PSG)on 2024 [facility] [address], [place] [address] ; PSG Study Report Name: ALLIE RUTLEDGE Date of Study: 11/17/2024 CC#: [id number] Age: 54 (: 1970) ESS: 01/23 Neck [...] Desyrel Sleep procedure: PSG 4 or more [facility] ([address]) Procedure: The study was attended continuously by a angio technologist. The monitored parameters included: left (E1-M2) [...] Respirator (more content not included)... SLEEP LAB [facility] Orthopedic Visit Reporton Orthopedic Visit Report [facility] [address] [place] [address] OFFICE VISIT Date of Service: 12/09/24 MR#: [id number] Acct: [id number] Name: ALLIE RUTLEDGE ANN Rep #: [id number] : 1970 Provider: Dr. Phillip Pretty so, DO Age/Sex: 54/F Location: [facility].ANTIONETTE Status: Signed Intake Vital [...] QDAY 12/09/24 12/09/24 H istory omega-3 720 tl-adl-blc-fish cap PO 12/09/24 12/09/24 History oil-vit D3 25 mcg capsule potassium chloride 10 mEq 10 meq PO QDAY 12/09/24 12/09/24 H istory tablet,extended release vitamin B12 500 mcg-folic acid 400 1 tab PO QDAY 12/09/24 12/09/24 History mcg tablet zolpidem 5 mg tablet 5 mg PO QHS PRN 04/09/25 04/09/25 History PFSH Medical History History of trigger [...] Right Shoulde (more content not included)... Normal [facility] CNPNon 12-07-2024 [facility] Telephone (INTMWS) ALLIE RUTLEDGE ([id number]) 1970 F [place] Date Time Provider Department 12/07/24 IFEOMA DAVIS INTMWS During your visit today, [...] Date Reviewed: 11/19/2024 Reviewed by: David Anna APRN.ADMINISTRATIVE INTERN - Fully Assessed Reason for Visit: Patient Question [5677] Primary Visit Diagnosis:Insomnia, unspecified type [G47.00] Order(s):zolpidem [...] 11/11/2014 H (more content not included)... Normal [facility]2024 CNPN Telephone (SLEWST) AAMIRALLIE ([id number]) 1970 F LV Date Time Provider Department 12/01/24 MICHELLE BECERRIL During your visit today, we recorded the following information about you: Dara Valdez RN 12/01/2024 8:59 AM Signed Patient calls and states that she was at [facility] for Sleep study on 11/17/2024. Patient asking about results for sleep study. Please review and advise, BRITTANY Benson Ashley 12/07/2024 10:05 AM Signed Patient calling again for status update on sleep study results. PSS reviewed provider's response in unread Breeze Message. Patient asking to be contacted as [...] PSG not yet resulted. Patient to contact [facility] to enquire why it is not resulted yet. Mallory Morrison, Letty Goddard LPN 12/17/2024 2:32 PM Signed Please see [...] Date Reviewed: 11/19/2024 Reviewed by: David Anna APRN.ADMINISTRATIVE INTERN - Fully Assessed Reason for Visit: Results [95] Prescriptions as of 12/17/2024 - CPAP/BIPAP/OTHER APAP 5-18 cmH2O [facility] - zolpidem (AMBIEN) 5 mg tablet [...] Noted Resol (more content not included)... Normal [facility] HIP, UNI W/ Pelvis 2-3 Views on 11-24-2024 HIP, UNI W/ Pelvis 2-3 Views [facility] Services [address] [place], [place] [id number] HIP, UNI W/ Pelvis 2-3 Views MR#: [id number] Acct: [id number] Name: ALLIE RUTLEDGE Rep #: [id number] : 1970 F 54 From: Danie Salvador MD PCP: Dr. Ifeoma Davis MD Status: DEP AMB Study: HIP, UNI W/ Pelvis 2-3 Views Date of Exam: Exam# [id number] Ordering Dr: Allie Prakash PROCEDURE: HIP, UNI [...] central to lateral joint space narrowing near zlwg-ef-uhea contact. Lateral acetabular osteophyte formation and large femoral head osteophytes with buttressing. Right hip mild to moderate appearing osteoarthrosis with rdsj-fm-yavpqeii lateral joint space narrowing and small osteophyte formation. No fracture or dislocation identified. RAD/HIP, UNI W/ Pelvis 2-3 Views IMPRESSION: Eols-tngduiu-ecrz-right appearing osteoarthrosis as described above with associated appearing left downward pelvic tilt. Reading Location: [facility] CC: Allie Prakash; Dr. Ifeoma Davis MD Corrections Officer: Signed Normal [facility] Hip Min 2 Views (Portable)on 11-24-2024 Hip Min 2 Views (Portable) [facility] Imaging Services [address] [place] [phone] Hip Min 2 Views (Portable) MR#: [id number] Acct: [id number] Name: ALLIE RUTLEDGE ANN Rep #: [id number] : 1970 F 54 From: Laya Tay PCP: Dr. Ifeoma Davis MD Status: REG CLI Study: Hip Min 2 Views (Portable) Date of Exam: 11/24 Exam# [id number] Ordering Dr: Allie Prakash PROCEDURE: HIP MIN [...] of the left groin region. Reading Location: [id number] CC: Allie Prakash; Dr. Ifeoma Davis MD Corrections Officer: Signed Normal [facility] CNPN Telephone (INTMWS) ALLIE RUTLEDGE ([id number]) 1970 F [place] Date Time Provider Department [...] Date Reviewed: 11/19/2024 Reviewed by: David Anna APRN.ADMINISTRATIVE INTERN - Fully Assessed Reason for Visit: Results, Lab [1201] Primary Visit Diagnosis:Hypokalemia [E87.6] Order(s):potassium chloride (K-TAB) 10 mEq tabletTake 1 tablet by mouth once daily.Disp: 30 tabletRfl: 1 BASIC METABOLIC PANEL [SQBMP] Order #: [id number] FUTURE Prescriptions as of 11/20/2024 - potassium [...] as of (more content not included)... Normal [facility] Basic metabolic 2000 panelon 11-19-2024 Anion gap [Moles/Vol] 14 mmol/L Normal 8-15 [facility] Comment on above: Order Comment: Speci men Type: BLOOD SPECIMENOrdering Facility: [facility] Address: [address] [place] [address] Performed By: #### 2 4321-2 ####[facility] LABCLIA [id number] [place] [address] [place] Calcium [Mass/Vol] 9.7 mg/dL Normal 8.5-10.2 [facility] Comment on above: Order Comment: Speci men Type: BLOOD SPECIMENOrdering Facility: [facility] Address: [address] [place] [address] Performed By: #### 2 4321-2 ####[facility] LABCLIA [id number] [place] [address] [place] Chloride [Moles/Vol] 99 mmol/L Normal 98-107 [facility] Comment on above: Order Comment: Speci men Type: BLOOD SPECIMENOrdering Facility: [facility] Address: [address] [place], [place] [address] Performed By: #### 2 4321-2 ####[facility] LABCLIA [id number] [address] [address] [place] CO2 [Moles/Vol] 27 mmol/L Normal 22-30 [facility] Comment on above: Order Comment: Speci men Type: BLOOD SPECIMENOrdering Facility: [facility] Address: [address] [place], [place] [address] Performed By: #### 2 4321-2 ####[facility] LABCLIA [id number] [address] [address] [place] Creatinine [Mass/Vol] 0.95 mg/dL Normal 0.58-0.96 [facility] Comment on above: Order Comment: Brandan eaton Type: BLOOD SPECIMENOrdering Facility: [facility] Address: [address] [place] [address] Performed By: #### 2 4321-2 ####[facility] LABIA [id number] [address] OF [facility] Creatinine and Glomerular filtration rate.predicted panel (S/P/Bld) 71 mL/min/1.73m??? Normal >=60 [facility] Comment on above: Order Comment: Brandan eaton Type: BLOOD SPECIMENOrdering Facility: [facility] Address: [address] [place] [address] Result Comment: Zaria mated Glomerular Filtration Rate [...] actual GFR. Performed By: #### 2 4321-2 ####[facility] LABCLIA [id number] [place] [id number] [place] Glucose [Mass/Vol] 73 mg/dL Low 74-99 [facility] Comment on above: Order Comment: Brandan eaton Type: BLOOD SPECIMENOrdering Facility: [facility] Address: [address] [place] [address] Result Comment: The [place] Diabetes Association (ADA) provides guidance for cutoff [...] Standards of Medical Care in Diabetes 2016, [place] [employer]. Diabetes Care. 2016.39(Suppl 1). Performed By: #### 2 4321-2 ####[facility] LABCLIA [id number] [address] [address] [place] Potassium [Moles/Vol] 3.5 mmol/L Low 3.7-5.1 [facility] Comment on above: Order Comment: Brandan eaton Type: BLOOD SPECIMENOrdering Facility: [facility] Address: [address] [place] [address] Performed By: #### 2 4321-2 ####[facility] LABIA [id number] [place] [address] [place] Sodium [Moles/Vol] 140 mmol/L Normal 136-144 [facility] Comment on above: Order Comment: Brandan eaton Type: BLOOD SPECIMENOrdering Facility: [facility] Address: [address] [place] [address] Performed By: #### 2 4321-2 ####[facility] LABIA [id number] [place] [address] [place] Urea nitrogen [Mass/Vol] 12 mg/dL Normal 7-21 [facility] Comment on above: Order Comment: Brandan eaton Type: BLOOD SPECIMENOrdering Facility: [facility] Address: [address] [place] [address] Performed By: #### 2 4321-2 ####[facility] LABIA [id number] [place] [address] [place] CNOVon 11-19-2024 CNOV Office Visit (INTMWS ) ALLIE RUTLEDGE ([id number]) 1970 F [place] Date Time Provider Department 11/19/24 1:00 PM DAVID ANNA During your visit today, we [...] Dr. Cynthia Ramos M.D. [place] [address] ALLERGIES Ultram [Tramadol Hcl], Darvocet A500 [Propoxyphene [...] progesterone micr (more content not included)... Normal [facility] CNOVon 11-17-2024 CNOV Office Visit (LDNESL ) ALLIE RUTLEDGE ([id number]) 1970 F Date Time Provider Department 11/17/24 9:00 PM SLEEP LAB LODI BED 1 LDNESL During your visit today, we recorded the following information about you: Referring Provider: KIMBERLEY BYRD [[id number]] Allergies As of Date: 11/17/2024 Noted Allergy [...] disorder) [G47.61] Primary hypertension [I10] Order(s):POLYSOMNOGRAM (PSG) [2261570] Order #: [id number]. #:[id number] Prescriptions as of 01/05/2025 - meloxicam (MOBIC) [...] once daily. 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 Normal [facility] POLYSOMNOGRAM (PSG)/HOME SLE EP APNEA TEST (HSAT)on 11-17-2024 POLYSOMNOGRAM (PSG)/HOME SLEEP APNEA TEST (HSAT) [facility] at [address], [place] [address] ; PSG Study Report Name: ALLIE RUTLEDGE Date of Study: 11/17/2024 [facility]#: [id number] Age: 54 (: 1970) ESS: 01/23 Neck [...] Desyrel Sleep procedure: PSG 4 or more addtl bridget PC (69329) Procedure: The study was attended continuously by a angio technologist. The monitored parameters included: left (E1-M2) [...] from s (more content not included)... Normal [facility] 25(OH)D3 SerPl-mCncon 2024 25-hydroxyvitamin D3 [Mass/Vol] 42.9 ng/mL Normal 31.0-80.0 [facility] Comment on above: Order Comment: Speci men Type: BLOOD SPECIMENOrdering Facility: [facility] Address: [address] [place] [address] Result Comment: Clas sification of 25 [place] Vitamin D status: Deficiency/Insufficiency: < or = 30 ng/ml. Sufficiency/Optimal Levels: 31-80 ng/mL Toxicity: > 100 ng/mL. Test performed by chemiluminescent immunoassay. Performed By: #### 1 989-3 ####[facility] LABCLIA [id number] [place] [address] [place] CBC W Auto Differential pane l (Bld)on 11-03-2024 Basophils (Bld) [#/Vol] 0.03 10*3/uL [facility] Basophils/100 WBC (Bld) 0.6 % [facility] Differential cell count method Nom (Bld) Auto [facility] Eosinophils (Bld) [#/Vol] 0.2 10*3/uL [facility] Eosinophils/100 WBC (Bld) 3.7 % [facility] Erythrocyte distribution width (RBC) [Ratio] 14 % 11.5 - 15.0 % [facility] Hematocrit (Bld) [Volume fraction] 37.9 % 36.0 - 46.0 % [facility] Hemoglobin (Bld) [Mass/Vol] 12 g/dL 11.5 - 15.5 g/dL [facility] Immature granulocytes (Bld) [#/Vol] [facility] Immature granulocytes/100 WBC (Bld) 0.2 % [facility] Lymphocytes (Bld) [#/Vol] 1.2 10*3/uL [facility] Lymphocytes/100 WBC (Bld) 22.2 % [facility] MCH (RBC) [Entitic mass] 29.3 pg 26.0 - 34.0 pg [facility] MCHC (RBC) [Mass/Vol] 31.7 g/dL 30.5 - 36.0 g/dL [facility] MCV (RBC) [Entitic vol] 92.4 fL 80.0 - 100.0 fL [facility] Monocytes (Bld) [#/Vol] 0.65 10*3/uL [facility] Monocytes/100 WBC (Bld) 12 % [facility] Neutrophils (Bld) [#/Vol] 3.31 10*3/uL [facility] Neutrophils/100 WBC (Bld) 61.3 % [facility] Nucleated RBC (Bld) [#/Vol] NINF [facility] Nucleated RBC/100 WBC (Bld) [Ratio] 0 % /100 WBC [facility] Platelet mean volume (Bld) [Entitic vol] 11 fL 9.0 - 12.7 fL [facility] Platelets (Bld) [#/Vol] 334 10*3/uL [facility] RBC (Bld) [#/Vol] 4.1 10*6/uL 3.90 - 5.2 0 m/uL [facility] WBC (Bld) [#/Vol] 5.4 10*3/uL [facility] Basophils (Bld) [#/Vol] 0.03 10*3/uL Normal <0.11 [facility] Comment on above: Order Comment: Speci men Type: BLOOD SPECIMENOrdering Facility: [facility] Address: [address] [place] [address] Performed By: #### 5 7021-8 ####[facility] LABORATORYCLIA [id number] [address] STATES [facility] Basophils/100 WBC (Bld) 0.6 % Normal [facility] Comment on above: Order Comment: Speci men Type: BLOOD SPECIMENOrdering Facility: [facility] Address: [address] [place] [address] Performed By: #### 5 7021-8 ####[facility] LABORATORYCLIA [id number] [address] STATES [facility] Differential cell count method Nom (Bld) Auto Normal [facility] Comment on above: Order Comment: Speci men Type: BLOOD SPECIMENOrdering Facility: [facility] Address: [address] [place] [address] Performed By: #### 5 7021-8 ####[facility]ORATORYCLIA [id number] [address] [place] Eosinophils (Bld) [#/Vol] 0.20 10*3/uL Normal <0.46 [facility] Comment on above: Order Comment: Speci men Type: BLOOD SPECIMENOrdering Facility: [facility] Address: [address] [place] [address] Performed By: #### 5 7021-8 ####[facility]ORATORYCLIA [id number] [address] OF [place] Eosinophils/100 WBC (Bld) 3.7 % Normal [facility] Comment on above: Order Comment: Speci men Type: BLOOD SPECIMENOrdering Facility: [facility] Address: [address] [place] [address] Performed By: #### 5 7021-8 ####[facility] LABORATORYCLIA [id number] [address] STATES [facility] Erythrocyte distribution width (RBC) [Ratio] 14.0 % Normal 11.5-15.0 [facility] Comment on above: Order Comment: Speci men Type: BLOOD SPECIMENOrdering Facility: [facility] Address: [address] [place] [address] Performed By: #### 5 7021-8 ####[facility]ORATORYCLIA [id number] [address] OF [place] Hematocrit (Bld) [Volume fraction] 37.9 % Normal 36.0-46.0 [facility] Comment on above: Order Comment: Speci men Type: BLOOD SPECIMENOrdering Facility: [facility] Address: [address] [place] [address] Performed By: #### 5 7021-8 ####[facility]ORATORYCLIA [id number] [address] OF [place] Hemoglobin (Bld) [Mass/Vol] 12.0 g/dL Normal 11.5-15.5 [facility] Comment on above: Order Comment: Speci men Type: BLOOD SPECIMENOrdering Facility: [facility] Address: [address] [place] [address] Performed By: #### 5 7021-8 ####[facility] LABORATORYCLIA [id number] [address] STATES [facility] Immature granulocytes (Bld) [#/Vol] 10*3/uL Normal <0.10 [facility] Comment on above: Order Comment: Speci men Type: BLOOD SPECIMENOrdering Facility: [facility] Address: [address] [place] [address] Performed By: #### 5 7021-8 ####[facility] LABORATORYCLIA [id number] [address] Immature granulocytes/100 WBC (Bld) 0.2 % Normal [facility] Comment on above: Order Comment: Speci men Type: BLOOD SPECIMENOrdering Facility: [facility] Address: [address] [place] [address] Performed By: #### 5 7021-8 ####[facility] LABORATORYCLIA [id number] [address] [place] Lymphocytes (Bld) [#/Vol] 1.20 10*3/uL Normal 1.00-4.00 [facility] Comment on above: Order Comment: Speci men Type: BLOOD SPECIMENOrdering Facility: [facility] Address: [address] [place] [address] Performed By: #### 5 7021-8 ####[facility] LABORATORYCLIA [id number] [address] [place] Lymphocytes/100 WBC (Bld) 22.2 % Normal [facility] Comment on above: Order Comment: Speci men Type: BLOOD SPECIMENOrdering Facility: [facility] Address: [address] [place] [address] Performed By: #### 5 7021-8 ####[facility] LABORATORYCLIA [id number] [place] [address] [place] MCH (RBC) [Entitic mass] 29.3 pg Normal 26.0-34.0 [facility] Comment on above: Order Comment: Speci men Type: BLOOD SPECIMENOrdering Facility: [facility] Address: [address] [place] [address] Performed By: #### 5 7021-8 ####[facility]ORATORYCLIA [id number] [address] [place] MCHC (RBC) [Mass/Vol] 31.7 g/dL Normal 30.5-36.0 [facility] Comment on above: Order Comment: Speci men Type: BLOOD SPECIMENOrdering Facility: [facility] Address: [address] [place] [address] Performed By: #### 5 7021-8 ####[facility] LABORATORYCLIA [id number] [place] [address] [place] MCV (RBC) [Entitic vol] 92.4 fL Normal 80.0-100.0 [facility] Comment on above: Order Comment: Speci men Type: BLOOD SPECIMENOrdering Facility: [facility] Address: [address] [place] [address] Performed By: #### 5 7021-8 ####[facility] LABORATORYCLIA [id number] [place] [address] [place] Monocytes (Bld) [#/Vol] 0.65 10*3/uL Normal <0.87 [facility] Comment on above: Order Comment: Speci men Type: BLOOD SPECIMENOrdering Facility: [facility] Address: [address] [place] [address] Performed By: #### 5 7021-8 ####[facility] LABORATORYCLIA [id number] [address] [place] Monocytes/100 WBC (Bld) 12.0 % Normal [facility] Comment on above: Order Comment: Speci men Type: BLOOD SPECIMENOrdering Facility: [facility] Address: [address] [place] [address] Performed By: #### 5 7021-8 ####[facility] LABORATORYCLIA [id number] [place] [address] [place] Neutrophils (Bld) [#/Vol] 3.31 10*3/uL Normal 1.45-7.50 [facility] Comment on above: Order Comment: Speci men Type: BLOOD SPECIMENOrdering Facility: [facility] Address: [address] [place] [address] Performed By: #### 5 7021-8 ####[facility] LABORATORYCLIA [id number] [place] [address] [place] Neutrophils/100 WBC (Bld) 61.3 % Normal [facility] Comment on above: Order Comment: Speci men Type: BLOOD SPECIMENOrdering Facility: [facility] Address: [address] [place] [address] Performed By: #### 5 7021-8 ####[facility] LABORATORYCLIA [id number] [place] [address] [place] Nucleated RBC (Bld) [#/Vol] 10*3/uL Normal <0.01 [facility] Comment on above: Order Comment: Speci men Type: BLOOD SPECIMENOrdering Facility: [facility] Address: [address] [place] [address] Performed By: #### 5 7021-8 ####[facility] LABORATORYCLIA [id number] [place] [address] [place] Nucleated RBC/100 WBC (Bld) [Ratio] 0.0 /100 WBC Normal [facility] Comment on above: Order Comment: Speci men Type: BLOOD SPECIMENOrdering Facility: [facility] Address: [address] [place] [address] Performed By: #### 5 7021-8 ####[facility] LABORATORYCLIA [id number] [place] [address] [place] Platelet mean volume (Bld) [Entitic vol] 11.0 fL Normal 9.0-12.7 [facility] Comment on above: Order Comment: Speci men Type: BLOOD SPECIMENOrdering Facility: [facility] Address: [address] [place] [address] Performed By: #### 5 7021-8 ####[facility] LABORATORYCLIA [id number] [address] OF [facility] Platelets (Bld) [#/Vol] 334 10*3/uL Normal 150-400 [facility] Comment on above: Order Comment: Speci men Type: BLOOD SPECIMENOrdering Facility: [facility] Address: [address] [place] [address] Performed By: #### 5 7021-8 ####[facility] LABORATORYCLIA [id number] [address] OF [facility] RBC (Bld) [#/Vol] 4.10 10*6/uL Normal 3.90-5.[address] [facility] Comment on above: Order Comment: Speci men Type: BLOOD SPECIMENOrdering Facility: [facility] Address: [address] [place] [address] Performed By: #### 5 7021-8 ####[facility] LABORATORYCLIA [id number] [address] WBC (Bld) [#/Vol] 5.40 10*3/uL Normal 3.70-11.[address] [facility] Comment on above: Order Comment: Speci men Type: BLOOD SPECIMENOrdering Facility: [facility] Address: [address] [place] [address] Performed By: #### 5 7021-8 ####[facility] LABORATORYCLIA [id number] [address] OF [facility] CNOVon 11-03-2024 CNOV Office Visit (INTMWS ) ALLIE RUTLEDGE ([id number]) 1970 F Date Time Provider Department 11/03/24 2:00 PM IFEOMA DAVIS During your visit today, [...] her everyday life. 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 States she has not had a bleed in her eye at a long time, but at the same time she states she wouldn't see it at this point. Slowly progressive loss of peripheral vision. Patient also reports that she has issues with calcified joints/arthritis. [place], so she can use the [employer] for going places, [employer]. She is engaged in a lot of activities, and is giving back to the community as much as she can in every way she can. She has a son in [place], and a brother near by. Her eyes [...] extremely active in the community. [place]akes the [employer] [place] to [employer] every Saturday, [...] available full-time. Needs include home health aid, [facility] if applicable - says her boyfriend could [...] Had worked with an OT previously through [facility] in [place] previously who assisted with various techniques and [...] feel ove (more content not included)... Normal [facility] Ferritin SerPl-ncon 2024 Ferritin [Mass/Vol] 29.7 ng/mL Normal 14.7-205.[address] [facility] Comment on above: Order Comment: Speci men Type: BLOOD SPECIMENOrdering Facility: [facility] Address: [address] [place] [address] Performed By: #### 5 0190-8, 6-4, 3024-7, 3016-3 ####[facility] H[facility]PITALCLIA [id number] [address] STATES [facility] Iron and Iron binding capaci panel 11-03-2024 Iron [Mass/Vol] 93 ug/dL Normal 41-186 [facility] Comment on above: Order Comment: Speci men Type: BLOOD SPECIMENOrdering Facility: [facility] Address: [address] [place] [address] Performed By: #### 5 0190-8, 6-4, 3024-7, 3016-3 ####[facility] CENTERIA [id number] [address] [place] Iron binding capacity [Mass/Vol] 384 ug/dL Normal 232-386 [facility] Comment on above: Order Comment: Speci men Type: BLOOD SPECIMENOrdering Facility: [facility] Address: [facility] [place] [address] Performed By: #### 5 0190-8, 6-4, 3024-7, 3016-3 ####[facility] LABORATORYCLIA [id number] [place], [place] [address] [place] [address] OF [facility] Iron saturation [Mass fraction] 24.2 % Normal 15.0-57.0 [facility] Comment on above: Order Comment: Speci men Type: BLOOD SPECIMENOrdering Facility: [facility] Address: [address] [place] [address] Performed By: #### 5 0190-8, 2276-4, 3024-7, 3016-3 ####[facility] LABORATORYCLIA [id number] [place] [address] [place] T4 Free SerPl-mCncon 025 Free T4 [Mass/Vol] 0.9 ng/dL Normal 0.9-1.7 [facility] Comment on above: Order Comment: Speci men Type: BLOOD SPECIMENOrdering Facility: [facility] Address: [address] [place] [address] Performed By: #### 5 0190-8, 6-4, 3024-7, 3016-3 ####[facility] LABORATORYCLIA [id number] [address] STATES [facility] TSH SerPl-aCncon 11-03-2024 TSH Qn 0.745 m[IU]/L Normal 0.270-4.200 [facility] Comment on above: Order Comment: Speci men Type: BLOOD SPECIMENOrdering Facility: [facility] Address: [address] [place] [address] Performed By: #### 5 0190-8, 6-4, 3024-7, 3016-3 ####[facility] LABORATORYCLIA [id number] [place] [address] [place] Vit B12 SerPl-mCncon 025 Cobalamin (Vitamin B12) [Mass/Vol] pg/mL High 232-1245 [facility] Comment on above: Order Comment: Speci men Type: BLOOD SPECIMENOrdering Facility: [facility] Address: [address] [place] [address] Performed By: #### 2 132-9 ####[facility] LABORATORYCLIA [id number] [place] [address] [place] Bacteria Ur Culton 5 Bacteria identified Cx Nom (U) ORGANISM ID: 1 <10,000 CFU/ml Lactose positive gram negative bacilli Insignificant colony count. No further workup. Normal [facility] Comment on above: Performed By: #### 6 30-4 ####[facility] LABCLIA [id number] [place] [address] [place] CNOVon 10-31-2024 CNOV Office Visit (UCWSTR ) ALLIE RUTLEDGE ([id number]) 1970 F [place] Date Time Provider Department 10/31/24 1:00 PM CHANTAL SEGURA WS During your visit today, we recorded the following information about you: Temperature Pulse Respiration Blood pressure 97.1 degrees 97/minute 18/minute 141/88 Weight 69 kg Chantal Segura, BEAD CUTTER.ADMINISTRATIVE INTERN 10/31/2024 1:22 PM Signed Subjective The history is provided by the patient. No insulation cutter and former was used. HPI Allie Rutledge is a [...] have confirmed and edited as necessary, the [facility] Review of Systems Constitutional: Negative for [...] Date Reviewed: 10/31/2024 Reviewed by: Chantal Segura APRN.ADMINISTRATIVE INTERN - Fully Assessed Reason for Visit: Urinary Problem [252] Cmt: Pressure x 1 day Primary Visit Diagnosis:Dysuria [R30.0] Other Visit Diagnosis:Acute lower UTI [N39.0] Order(s):BACTERIAL CULTURE, URINE [SQURCUL] Order #: [id number] BACTERIAL CULTURE, URINE [SQURCUL] Order #: [id number]. #:[id number] UA DIP, URINE (POC) [[id number]] Order #: [id number]. #:[id number] cephALEXin (KEFLEX) 500 mg capsuleTake 1 capsule by mouth two times a day for 5 days.Disp: 10 capsul (more content not included)... Normal [facility] UA DIP, URINE (POC)on 2024 BILIRUBIN UA (POCT) Small Abnormal Negative [facility] CLARITY UA (POCT) Clear [facility] COLOR UA (POCT) Red [facility] GLUCOSE UA (POCT) 100 mg/dL Abnormal Negative [facility] Hemoglobin Ql (U) Large Abnormal Negative [facility] Interpretation and review of laboratory results Abnormal [facility] KETONE UA (POCT) Trace Negative mg/dL [facility] LEUKOCYTES UA (POCT) Large Abnormal Negative [facility] NITRITE UA (POCT) Positive Abnormal Negative [facility] PH UA (POCT) 6 4.5 - 8.0 [facility] Protein Ql (U) >=300 Abnormal Negative mg/dL [facility] SPECIFIC GRAVITY UA (POCT) 1.01 1.005 - 1.030 [facility] UROBILINOGEN UA (POCT) 2 Abnormal Normal E.U./dL [facility] Location:[facility], [address] [place] [address], [id number] [place] [address] POINT OF CARE [facility] GENOVEVA SCREENINGon 10-21-2024 GENOVEVA SCREENING * * *Final Report* * * DATE OF EXAM: Oct 21 2024 2:30PM WRW [id number] - [facility] SCREENING / PROCEDURE REASON: multiple diagnoses * * * * Physician Interpretation * * * * RESULT: [facility] [address] [place] [address] #[id number] - [facility] SCREENING HISTORY: 54 year-old patient seen for [...] Marnie Maki M.D. Electronically signed on: 10/22/2024 Corrections Officer: REMA Transcribe Date/Time: Oct 21 2024 2:00P Dictated by: MARNIE MAKI MD This examination was interpreted and the report reviewed and electronically signed by: MARNIE MAKI MD on Oct 22 2024 9:04AM EST [id number] Normal [facility] OCT MACULA CIRRUS OU (BOTH E YES)on 10-13-2024 [facility] Radiology Study observation (narrative) [facility] CNOVon 10-12-2024 CNOV Office Visit (INTMWS ) ALLIE RUTLEDGE ([id number]) 1970 F [place] Date Time Provider Department [...] her everyday life. 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 States she has not had a bleed in her eye at a long time, but at the same time she states she wouldn't see it at this point. Slowly progressive loss of peripheral vision. Patient also reports that she has issues with calcified joints/arthritis. [place], so she can use the [employer] for going places, [employer]. She is engaged in a lot of activities, and is giving back to the community as much as she can in every way she can. She has a son in [place], and a brother near by. Her eyes [...] extremely active in the community. Takes the [employer] bus to [employer] every Saturday, as well as to her [employer] studies throughout the week. States these activities [...] available full-time. Needs include home health aid, mcc if applicable - says her boyfriend could [...] Had worked with an OT previously through [facility] in [place] previously who assisted with various techniques and [...] She st (more content not included)... Normal [facility] CNOVon 10-07-2024 CNOV Office Visit (INTMWS ) ALLIE RUTLEDGE ([id number]) 1970 F [place] Date Time Provider Department 10/07/24 6:20 PM CALLI GERBER INTMWS During your visit today, we recorded the following information about you: Temperature Pulse Respiration Blood pressure 98.2 degrees 103/minute 16/minute 124/62 Weight 73 kg Calli Gerber, BEAD CUTTER.ADMINISTRATIVE INTERN 10/07/2024 7:02 PM Signed CC: Patient presents [...] Dr. Cynthia aRmos M.D. S [place] [address] ALLERGIES Ultram [Tramadol Hcl], Darvocet A500 [Propoxyphene [...] on 1 (more content not included)... 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 Normal [facility] CNPN Telephone (SLEWST) ALLIE RUTLEDGE ([id number]) 1970 F LV Date Time Provider Department 10/07/24 MICHELLE BECERRIL [...] Please review and advise, BRITTANY Benson Rebecca, APRN.DEBORAH 10/08/2024 12:55 PM Signed PSG ordered. Please assist pt in scheduling it at [facility]. Michelle Becerril APRN.Jackie Monge MA [...] Date Reviewed: 10/07/2024 Reviewed by: Calli Gerber APRN.ADMINISTRATIVE INTERN - Fully Assessed Reason for Visit: Patient Question [4527] Primary Visit Diagnosis:Snoring [R06.83] Other Visit Diagnoses:Excessive daytime sleepiness [G47.19] Non-restorative sleep [G47.8] PLMD (periodic limb movement disorder) [G47.61] Primary hypertension [I10] Order(s):POLYSOMNOGRAM (PSG) [[id number]] Order #: [id number] FUTURE Prescriptions as of 10/12/2024 - amLODIPine [...] atherosclerosis [I65.29] 11/15/2015 PAD (peripheral artery disease) ([facility]) [I73.9] 11/15/2015 Aortic sclerosis (HCC) [XCN2273] 11/15/2015 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 Normal [facility] CNOVon 09-29-2024 CNOV Office Visit (INTMWS ) ALLIE RUTLEDGE ([id number]) 1970 F [place] Date Time Provider Department [...] her everyday life. 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 States she has not had a bleed in her eye at a long time, but at the same time she states she wouldn't see it at this point. Slowly progressive loss of peripheral vision. Patient also reports that she has issues with calcified joints/arthritis. [place], so she can use the [employer] for going places, [employer]. She is engaged in a lot of activities, and is giving back to the community as much as she can in every way she can. She has a son in [place], and a brother near by. Her eyes [...] extremely active in the community. Takes the [employer] bus to [employer] every Saturday, [...] available full-time. Needs include home health aid, mcc if applicable - says her boyfriend could [...] Had worked with an OT previously through [facility] in [place] previously who assisted with various techniques and [...] artery dise (more content not included)... [facility] DE[facility]AHN Telephone (SLEWST) ALLIE RUTLEDGE ([id number]) 1970 F Date Time Provider Department 09/25/24 MICHELLE BECERRIL During your visit today, we recorded the following information about you: Michelle Becerril APRN.ADMINISTRATIVE INTERN 09/25/2024 4:10 PM Signed Please CALL pt and tell her I reviewed her case with Dr Jiménez. --We looked at her [facility] sleep study report--Dr Jiménez believes she is [...] that would she consider going to a [facility] sleep lab? Michelle Becerril APRN.Letty Madrid LPN 09/25/2024 4:29 PM Signed TC to pt who had questions about flexeril, she has been taking it every night to see if it helps with the leg spasms. Wonders if she can still take this or if she will need to stop them. Is okay with increasing the gabapentin, uses [facility] in [place]. Aware we need to talk to Dr. Betancourt. Has upcoming appts with PCP and pain management. Is okay to do a sleep study using [facility] but is unable to travel out of town very far. JOLIE Taylor Rebecca, APRN.DEBORAH 09/25/2024 4:36 PM Signed Please print my note and I'll write a msg to Dr Betancourt, we can fax him, then we'll let her know. We could use [facility] lab. 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 Normal [facility] CNOVon 09-24-2024 CNOV Office Visit (SLEWST ) ALLIE RUTLEDGE ([id number]) 1970 F Date Time Provider Department 09/24/24 3:00 PM MICHELLE BECERRIL During your visit today, we recorded the following information about you: Pulse Blood pressure Weight 101/minute 122/81 72.7 kg Michelle Becerril APRN.ADMINISTRATIVE INTERN 09/25/2024 3:51 PM Addendum Addendum: I reviewed her case with Dr Jiménez. We looked at her [facility] sleep study report including hypnogram--Dr Jiménez [...] could give ambien that night, would prefer [facility] sleep lab but she would require a food mobile driver due to her blindness. Michelle Becerril APRN.DEBORAH [facility] Sleep Disorders Center New Patient Evaluation PATIENT NAME: Allie Dianety DATE OF SERVICE: September 24, 2024 CONSULTING [...] gabapentin at HS. Had a PSG at [facility] -- didn't meet criteria for DAYSI using [...] night A Polysomnogram performed on 07/22/24 at [facility] revealed an AHI of 8.1 (3%) [...] essential hypertension (more content not included)... 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 Cynthia Ramos M.D. [place] [address] FAMILY HISTORY Problem Relation Age of Onset Heart Father Age 61 Heart Maternal Grandfather Cancer Paternal Grandmother Breast Cancer Maternal Aunt 55 ovarian cancer Heart Son [place] Ovarian cancer Maternal Grandmother Glaucoma No Family [...] daily. Us (more content not included)... [facility] CNPN Telephone (OBGYWM) ALLIE RUTLEDGE ([id number]) 1970 F Date Time Provider Department 09/15/24 DESTINEY PENDLETON OBKLELY During your visit today, we recorded the following information about you: Deangelo Stephens MA 09/15/2024 2:37 PM Signed Received PA request for [employer]. PA submitted through [employer] and will await response from patients insurance. 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 9:17am BP 155/82 HR 89 10:25am BP 146/88 HR 91 11:12am BP 158/88 HR 102 David Anna APRN.ADMINISTRATIVE INTERN 08/12/2024 1:31 PM Signed That is higher [...] 08/10 by Patient Outreach and patient outreach RISHI instructed patient to call in readings. See 08/10/24 patient outreach. RISHI Ambrosio Joy, APRN.ADMINISTRATIVE INTERN 08/13/2024 7:10 AM Signed She has an upcoming appointment with Dr. Davis next week. Have her take a few blood pressures different days after sitting to rest for a good 5 minutes and can bring readings to appointment to review with her. Thank you David Anna APRN.ADMINISTRATIVE INTERN Allergies As of Date: 08/12/2024 Noted Allergy [...] Prescriptions as of 04/13/2025 - azithromycin (ZITHROMAX Z-SRINIVAS) 250 mg tablet 2 tablets by mouth [...] 11/15/2015 PAD (more content not included)... [facility] Telephone (PIPPAWS) ALLIE RUTELDGE ([id number]) 1970 F [place] Date Time Provider Department 07/27/24 IFEOMA DAVIS During your visit today, we recorded the following information about you: Sarahi Dawkins LPN 07/27/2024 10:41 AM Signed Pt calls to report she had a sleep study done at [facility] and would like the results. Pt reports she cannot access the results. JOLIE Damico Joy, APRN.DEBORAH 07/27/2024 12:26 PM Signed We don't have the results either. Please get results then place on PCP desk to review. Thank you David Anna APRN.[place]ia Ding MA 07/27/2024 1:06 PM Signed Printed from [employer] and placed on PCP desk. RISHI Ambrosio Chitra, MD 07/27/2024 6:34 PM Signed Please let patient know that she mild sleep apnea and she also likely has periodic limb movement disorder. The ideal treatment would be a CPAP machine. If she is willing to try it we will send her a CPAP machine and work with the [facility] clinic to help her to use it. For periodic limb movement disorders we could see if the treatment of sleep apnea would help with that symptom and if it does not we can revisit it in the future. Ifeoma Flores MD, Rachel L, MA 07/28/2024 9:47 AM Signed Patient notified [...] schedule with Sleep Medicine. [place] Lorenz MA Sharifa Landa 07/29/2024 11:34 AM Signed 1st attempt LVM to schedule with sleep medicine Spring Peñaloza, RN 08/05/2024 10:35 AM Signed Pt called in and reports she wasn't able to get in to sleep medicine until 10/07/24. Pt is wanting to get CPAP machine before then. I told her she would need to call her [employer] company and find out the DME they use and call us back. I said it looked like Dr Davis knew about the [facility] clinic to help her to use it as she is legally blind, so she would need to set that up. Pt states she is always so tired, and she doesn't want to wait until October to get it. [place] Lorenz MA 08/05/2024 11:32 AM Signed Spoke with sleep/neuro nurse here in [facility]. [facility] clinic not at this location anymore. 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 Normal [facility] Cerv Spine 4 or 5 Viewson Cerv Spine 4 or 5 Views [facility]iology [address] [place] [address] Cerv Spine 4 or 5 Views MR#: [id number] Acct: [id number] Name: ALLIE RUTLEDGE Rep #: [id number] : 1970 F 54 From: Henrik Cardona MD PCP: Dr. Ifeoma Davis MD Status: DEP AMB Study: Cerv Spine 4 or 5 Views Date of Exam: 07/15/24 Exam# [id number] Ordering Dr: Allie Prakash [id number] STUDY: X-RAY - CERVICAL SPINE REASON FOR [...] CC: Allie Prakash; Dr. Ifeoma Davis MD Corrections Officer: Signed [facility] 07-10-2024 [facility] Telephone (INTMWS) ALLIE RUTLEDGE ([id number]) 1970 F [place] Date Time Provider Department 07/10/24 IFEOMA DAVIS During your visit today, we recorded the following information about you: Angelica Arreola RN 07/10/2024 9:17 AM Signed [facility] Central Scheduling calling and states they have received a non-signed sleep study order for mutual patient. Requesting a signed order. Signed order faxed to [phone] as requested. BRITTANY De La Fuente Chitra, MD 07/10/2024 2:02 PM Signed Janet, Can you find out from [place] how she does it? She uses our orders and it works. Thank you Regards, Janet Pastor MD, LPN 07/10/2024 2:15 PM Signed Called Aimee Penn Sleep clinical biochemical geneticist at [facility], stated should be able to use current order faxed. Stated would contact us if need something else. Janet Meza LPN July 10, 2024 2:15 PM Janet Meza LPN 07/10/2024 2:40 PM Signed Sleep clinic [facility] sent fax needed office visit with some support for sleep study. Nothing mentioned at last office visit. Janet Meza LPN July 10, 2024 2:40 PM Ifeoma Davis MD 07/10/2024 5:30 PM Signed I addend ed the note, please use the information there to for the sleep apnea testing. Regards, Virginia Montanez MD, MA 07/13/2024 11:57 AM Signed NOMI note faxed to [facility] as requested. 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 Cynthia Ramos M.D. S [place] [address] ALLERGIES Ultram [Tramadol Hcl], Darvocet A500 [Propoxyphene [...] tablet Mckay (more content not included)... Normal [facility] COVID AND INFLUENZA A/B AND RSV PCR, ROUTINEon 07-08-2024 SARS-CoV-2 (COVID-19) RNA SUKUMAR+probe Ql (Unsp spec) SARS-COV-2 (AGENT OF COVID-19) RNA: Not detected INFLUENZA A RNA: Not detected INFLUENZA B RNA: Not detected RESPIRATORY SYNCYTIAL VIRUS (RSV) RNA: Not detected Normal [facility] Comment on above: Performed By: #### C VFLRS ####[facility] LABCLIA [id number] [address]Mir[address] 07-07-2024 CNPN Telephone (FAMPST) ALLIE RUTLEDGE ([id number]) 1970 F Date Time Provider Department 07/07/24 IFEOMA DAVIS During your visit today, we [...] calling: self Call patient at: at home [phone] (home) [phone] (cell) Was an appointment scheduled: No Closing statement: Results or non-symptom based questions: Thank you for calling [facility], your call will be returned within the next business day. Myra Deal [facility] Ifeoma Davis MD 07/07/2024 5:15 PM Signed Would she be willing for an inhouse test? Due to her blindness? RegardsIfeoma MD, M Robin, RN 07/08/2024 9:52 AM Signed Phoned pt. [...] sleep study done in the sleep lab. [place] may be easier for her. Regards, Janet Pastor MD, LPN 07/09/2024 2:19 PM Signed Called and spoke to patient would prefer [facility] d/t legally blind. Faxed order and facesheet to [facility] sleep study Janet Meza LPN July [...] Diagnosis:DAYSI (obstructive sleep apnea) [G47.33] Order(s):POLYSOMNOGRAM (PSG) [[id number]] Order #: [id number] FUTURE Prescriptions as of 07/09/2024 - gabapentin [...] TENDINITIS [M76.50 (more content not included)... Normal [facility] Carotid arteries - vinnie jeffrey 06-04-2024 Non-Invasive Vascular Laboratory [facility] Carotid Duplex Bilateral/Complete Date of service/time: 06/04/2024 [...] Subclavian artery: Patent. Technologist: Ilene Cruz RVT, [facility] Ordering physician: IFEOMA DAVIS Interpreting physician: JOSHUA Spence DO Final See Link below for Image [facility] OCT MACULA CIRRUS OU (BOTH E YES)on 02-18-2024 [facility] Radiology Study observation (narrative) [facility] SURGICAL PATHOLOGYOrdered By : Rik De La Paz on 06-07-2023 Addendum o5gwvPGzTXXgfRLjNAPh M1x eymOmHZBavOBzH9LjhqkbKL pxAI0gJQ6rlKaxcVVjnOYqD LNbPnVkm4muq278zZHgc8vr ZNTLKCnuBFEZFJj1s8brFCV IehockVr9xQnuJ06cc8F8Ge kzC1itBPImBRnoSBToXGiqf HHmICl6JRJmpJHmnaBkGfKl JBEhqRFzpBJ0TDZiAD7bcff yUNuxRTgiQGLotkR4ANCdwJ FuH0TbSMHdEH6nkvfbKEC9Q HzcTLCjIXR5KzPhGICjg4Yy xmo5PaKmtROtRCjgaITltfi hADcspsCsHFtrvYUke0tvx1 JqS7qwaXdxpJN0JHWmrxJSR iBweWxvcmkgaXMgbmVnYXRp dmUgKHBhcnQgQikuXHBhclx aFlTpaFEjAFjjIp4qHAAkft coWAW9PCiorLLsJXAhv7YrU JhUHYuuAFqaU1peaK5pqifm vOTpCRNjasPyen2ftgFgATJ cNWVpI4NnohueyNtihsTbKd UlrM25ql1siPI5b1SjVJ4hA 0PuVZQolG08kq4eaAJepxOj B4KnbZCijfWrJ7prp47hY5U qhZUshS9rj9o8wLYszWFywB TiqnB2iR5kEHVyy6XaJQrpt rJfXwZhzvQuHJIttk4oouSp DIV7SKSrKGCxXLUuy7NybB0 kLEltCh9xGNYjxgxto4b8wF luIENsZXZlbGFuZCBDbGlua XAuaPhcHOtaAJx3SiUwUs3s YOU1OZbaBHQafBpwD9rzJJQ 9yV9fq3k7BZHgEWNNTTZedh Z0f5B8BK2dWViumN2tPPlqf 9QasCS7NIOrBKKlbhHVAU0l oMRgCJ7rgZc4XXybETNunq9 kXGkblpAkLEkaDI3qyVd5LT sfZHXyn4EwHCMuS4KkhL1nV Vuez3NemFLlQLOEFYImuKHA p0LsvNWorPgkUP7hfDNlJEU wmrEyPE5pPValBPcaV9DezV PtBGADFHE6bH3tOKOkdZTfW F5mybSfQRfjx5HydHTwVOLv pcJDtiayjvWQf3XyvSEliYf dkT5iBBHeBN1eFDCsL02au5 ohpRImnWN4iXAeIRNXXWSec pKlaJdoNF2bkdYgBjCKivXg j1NbfC0lYZTwSiK6eLPfCFC 8RHV3wxGgKIMeLZ2bxENvKI IcPNOnSWXnBQOnx3DvLOOaz f01OWCpQolgbXafYTAPAT8a KeIbNMeFSBAgucFhEFk6jRM 7OVQxmL1vEKYkE6jBHYEmhm ZypGFucOHlBDUofP0mtGPgN k7ohOLpfExhOYQerIUwMKgk qWwbtMJopPfhIk1cOKrzp4R gdGVzdHMgYXJlIHVzZWQgZm 4tTBLphD3xA8PfBFT6jnDhw 9VuAkGKqJV9MLBzu7VeCPTb w9JzHoAhtoPmXHTlQWUeAKT agQ49QXF3jYhidFxgjpEiKT 4tHBVdnmEhKFSaJFCfaC4nD Y0vjQByybQhST9qWQ3mW9W9 gKLdYKGttkNmd7kuGTE9OIj uIGFwcHJvcHJpYXRlbHkuXH Bhcn0= [facility] Work Phone: Case Report Surgical Pathology Report Case: [id number] Authorizing Provider: Andry Connelly MD Collected: 05/30/2023 01:16 PM Ordering Location: Ambulatory Surgery Received: 05/30/2023 09:01 PM Pathologist: Rik De La Paz MD Specimens: A) - DUODENUM BIOPSY, 2nd portion B) - ANTRUM (STOMACH) BIOPSY C) - STOMACH (GASTRIC) POLYP BIOPSY D) - RECTAL POLYP [facility] Work Phone: FINAL DIAGNOSIS p6nucJLlLVQffIIaOZXo M1x vpjDePXDeiYVeG2YnykkoSA nlOB2kNK6cjNxivZWscJIlJ BNkRiJuj6trm695uDIal3kx NSHHctnnbGl4lEqdA25hv8E 6KxcdG57hsEZwYYD3WJLqSY GqjSIyZLSoZSN5NLJjxGBoK 2tmOERjPH6brvfcPVqrMTcb FVLjjYZ0KBKlmBRhY9XfTYX vCWkoJKBdosy9BhOnDc6lzW VyeTcyMFxwYXJkXHBsYWluX UHpSkYiAH8bCOY0f9JpudCm FYFecP9ma4m4OTHjypTlWSF tYWxsIGludGVzdGluYWwgbX Smx7PzCEwhnIbujk4uo2kqp cvokUSkhfLsaRP3gQ5eq8yj AcHwVj4cja6emGh4gE4wmXJ pKUBkmhRDFqVpN4KgmQTbiL hsCsbcpWA6DbjeFDFhUUMKq RrfHJEhjs1slHXiS0KfzXIc dGlzLlxwYXJccGFyIEMuICB QeK1wSBCxTBLbb1y8tELwtN 8zmKelcSCwVJ8pPeDwLRhpJ DuxLD2xBFCudRjaZdcbSQTq iPNfTUQzKDRKSBV8lG8iMRI acXdhTSX8f945IrneTCMmKN YQcDK3lHEhTSBwFZ3bgECwH HBhcn0= [facility] Work Phone: Gross Description d4zltJCuEFDddBWLLKW0 MDJ uRC7jmDxywAh3zShaCVKtco J0eNTqIQfrb2efFSY6x2pkz fOHXzhzIARnUD3gGZdkZKJp CU2wTcUgHPYcVtKlUUPbfIV bzrYfDeMsWIOnqSAstBF3SX HdPQ8gzfdyMHlrGSldTAAan mL5YWTlqUCfO2MzNSRtKI7g ivrsEIO5BDLJHbixOd4tgBP ibHtcZjFcZmNoYXJzZXQwXG KslRgvUAGfKOy4rK2VJqxnD DZ7JUUUByfuTarwaDmuy4Tm dCBcXHNnIFxcaWQgNTEwMDA jJYtgJeTNWaMxTgY1BpozRf p3VhPeTXs5JUhvQkJSKJx4P TM1MdAaFSh9QCpqECjfkRPy MRWaDQOvDPSpANsalrV7a8m fEHNbsUHlXUE9HIzli3gyFH lhEUT7HSWkNvHfJEDgPC0CP oGyUWZfBiPcPqzxKtW1LQj2 OSBPVlMgIiAgMzgwNjQwMjk oKEy9FHn2BBcYUnXgJEThAt eoLVOzExH5LMq3TrQrTNNxA lRfLJHrRKUuEKhzcRPwTJ0z zPmnQOXyQG5PPOJvSPutMJI pDhWbAC3aQYIQKBDWSN1bAl cKMNCUTEd1msMjHPGqipFGF yppOEEpWJ3EMBFvINxsQCf2 wzVdACXdXaXsLPYeC70od7N Io8DvGE7QBDm8ulUsabxmgF 4wXHJpbjAgDQpcZnMyMCBSZ AWrhFQcAJJqdqJni7YtZHfz biBhcmUgbXVsdGlwbGUgcGl oO3JfXY1xWVNbvyrqs99npA P3nOBdwOEnPCpmdhMvKLLmx nckrB9jUNXjITQ1BHDoJvZ2 MYSyWkSshM0lSC70BGpvdVI xvWNehLB8DZSlzR1us45oFT Qhn1TeeSNbLniaDXQfIBols 2EzMFxlcGljWHNhMzAgDQpc DCEnA04cy4MPw3Vqs3rnqIz xk2WctHEcAE7vmCJfRH8Ln3 izKVXfxTLeYYI5XCdzr9hzD QucGSI2XOXfKgCqWJZoTJ6F QlNuBFXzWlUtYiytAdM6JQj 5OSBPVlMgIiAgMzgwNjQxMD QmUDw8HLd7XRaLPrVkMNOnQ fznACW5EUC1BHy1HwVcNJCt MiBcXHNzIDMgXFxmbCBcXG5 bfLzbORDnFOZjPYM0VFLewZ TVz8HcQUYrRQszWmRvLpQTW zAIYfCYMN4lKRZVS53KK0yn TXJAF1AWTJfrEIWrASspgHX yZCANClxwbGFpblxsdHJjaF mrniGsNUGbzTCHWOF1LA1pF SANClxsdHJwYXJcbGluMFxy fA7kWFNsRmTqAPMdG3miLtQ lUP8FSEIsIgJvWwMwAPp9FM KcnZ4gVd4veDFqvO1cTYYfS NN7wxKecEGwJRLrk7MiaWUi GITbd4A8FTIae9O9LODdO3x bORhgiNwyNgB2luFfOuhrdD DkWsPodMMsJhZgR27rDOPur YTwaDult3PlzUn3gDPwRIjt FN1vKUWqLXPlTQH5XE2llJO kLT5RNWDpFLuazBksPLGcSK iiDVAqYZZdoKKOd3QmGYPGA whgsZwzDtFslPVtLhX6UNUf pHEtSES0FN0zaOkhJWAxLFl 6OInoUIBjA2XrP8GgZToiAk BcXGlkIDUxMDAyIFxcZGIgT 3JNIOMxTAF2RaR7LlKoNLt7 GRv8MR6EXiMiTJUrNNS2MPI 1IGOnSNf7WDizQE3XKHFnWg LsMDV6Uqj3OMT3Nri4JCtyi WLaZFsii6XiKtKxZLXuGEkk utU0UVScxwYcc9IrKFVqEEJ bF2hsLgEhZPGFArkmdcUxQJ BpQMDSD02NC5fvXXxPC4FJA NRsZJZSSYuZIRWBT9HHVGqv YXIgDQpccGFyZCANClxwbGF pblxsdHJjaFxmczIyXGVwaW LKXVS4EP4rLAGCQbnvpFXbU ODqoEzvEDndyH0pGSWuZwSy RYOuU0meXrQzRL7GURGjRrZ lSnXuMPs6OGZbxI6xQc0hjA NazC9xxYSyf48aSPHnEUEeE I7gJCFaig7evx84gbxjg91t jFP3kBNfuWJjjADaf4ElnG5 eRIEoBxD6FYYmVtD8HMPqVc CxzD1wWS93UZodlTAjxBVhf WM6RJYtbV6ls56xWUDng3Ae aDUcXsFymRGoBO1THCWzHSf lcGljWHNiMFxzYTMwXGVwaW DQa9DkZGZXWcgxeEevWcGxd BQmBqN0KZXsmOVuESZ4GV8v oKejIZByIQk4XVoqHWGdM8T dJ0LzTAepOcRtMBghGYDgOG WwVGbxAUNrE9FIRXDxNQQ5W aA6EeFeVWo1YAs9PT4DTbUc VBMqKEG2TXu0PvWcXQy6QLh zQG8AXOXcKyZaMVW6Gca9CG T3Olq5WXsxuJZrEFhci3MxR cGvZRNkWGdmfkZ1UIGcfdJe k3PwIRJxVOQyK7zeKaAoEIE NZxsxlvVjFPClIIBKA0DHWI LIJ7cQNTnlFYJhVGfqgFBlF CANClxwbGFpblxsdHJjaFxm msPaBWTspLLOGZC2KQ6gQZR NClxsdHJwYXJcbGluMFxyaW 8qWMPtBeWoJUQxS0gzLlAeM A3HPPWmOeThGkAjCLz6YLGf cB9zSq5weLYmlC8slERyx37 eIJVrQPDiYY8pMMNyvyuon0 9jeDG2cPOsmKWnsBAoi3Bmt M7pTMXnXmX2STGcRdK5JBZx TAAgyS6bZA38RAazkFJwbKK oiDP7BUSwcF8yh39uVXJen2 CjhMIhNkBpnVVvWF7AKZYgF FxlcGljWHNiMCANCiBccGFy XD2KC7Wsd3MgJTmqqUvgFPH tf90ftECzXw7itPUaZDY2ZH NsZXZlbGFuZCBDbGluaWMsI Tm7ZRBjDQOynZzzKKE3BH6e UIDfTXDvnUNdVEbyQ7flPUV mFEBtkHAaNS9ZAONwpuTGEt tLIFNlcHRlbWJlciAyOSwgM bHbEiBwMgX0OVMZGS0qdIKk OR8QXGKhuvNJQmncTOKzWCQ xiEUQa1GgHETYKlrsdGtmTi VjdEZdNgH8VXXpoKIhTPX1K G0fwUssAPPhJ6FeJ6JtkiO7 YWEepqQSFieqRGYoBH1BZTT zMjIgDQp9 [facility] Work Phone: Performing Lab j6luiOStXMQrpTNeQpGy MDA rMJUdz4olLICtiSGhXgYcLk NcZnRuYmpcdWMxXGRlZmYwe 1eey919hGJsy7vzQSXiVzF5 jXQvNYLkgUSfO427DLIqGGl ty9uui3MpGFEpqNJeb3C4KN KWaflunVz3pRyjI32au0H0W ltoP7rjLLGjOUKoA0QzWR8g ZPQpYkf3DIP9MGN1HHIwRUU wU3IyYQ6cQVZonUBwTMg8a0 mpwRhbLMVoGYG0d8wmCImau lZjGJ6dum4qgAm1l4uxmeKh RTTtORNiyQHYNEXiI2CccPk wTw1fdWw3rSlvJrcbEKU6Is y3FA9hss53zpj7rWjbPADri ffyYeH4BPldMTTmvxgiSWj1 RJfxMJHzjKT7LAQevNUlF2X tNWkrYI8enae1SIB6RKzvGF FjWsU9EQDvsKMxERCbdTrqF Btqp401EOD6QmYvKH8zH1Hz k2U9jY1aaJLyJZCunDVaVuZ pJNAvzt9eaDFvFDluc2MnGC X9omG7dMWavGCdWOKpKC76G uwgs9UjCmrky3PjN80pyVL4 LPzdr5dmVS2qOuM0kvQnJHi se5dpdB5ePbU1BDdbAN9vVO 1aNOKceQ0ochhpKBWvSaRdy xsoRZKbqWsmfrJvIu1hsAlm JNU2HIktI4mtzJ3jAjG0ZKr rX5wsrF7lFDa9PPuawZP6TX RtnL1eQJ6clqgty1udRJsuF XmdIKDcvqY1zpWiQHCurENx M2OcgD5vTFIxHO2xuzvex7p wTQW4SEyqSAKnZHV7CpCoON Wyt9Uitmc1YlSpf3BijXYyM DboD23wh509WESczwQiZ6ga bGFpblxwbGFpblxmMFxmczI 0XHFsXHBsYWluXGYxXGZzMj JcbGFuZzEwMzNcaGljaFxmM HmgLsIsKFHvLOmvX8tlVnUq EaCxOlYRvNSpwz1orUnqHVy vxEOuiUVpnCD0dA5aJSVilz Oapr7gGGMgeFKPnSY2JXdmb mNiV6zjwztzXLS6EXVzPVI2 A1qmVPFWrhMaWJNrKJIixYA nLQEILBD1LSX6JMQmJILBBU ReSKG6KMK4QBUzXYVnsEMzC HBhclxwYXJkXHBsYWluXGYw JNFcUuDmrLlhsS1bEuOtImH yNbbvOH0vWJDeX0ipeGQqZL MiJFZvZ9itDjNigF4haXffE VxjZjJcZnMyMlxsdHJjaCBM JHSlcsS1w5H7UMfshVGiver mMVxmczIyXGxhbmcxMDMzXG eeJ1ypOzOeWQOopIkmGFidj 6QkPGIdFKBrIcVxAYlxWBB5 y6V2OXenrMHjfeEEReRVKF0 hlCHpqcjnFU1YLktaQGT4 [facility] Work Phone: [facility] Work Phone: EGD Study observation Narrat ketan 06-01-2023 [facility] Patient Name: Allie Rutledge Procedure Date: 05/30/2023 1:05 PM Date of : 1970 Admit Type: Outpatient Age: 53 Room: [place] [address] Gender: Female Note Status: Finalized Attending MD: [...] previously scheduled. Procedure Code(s): --- Professional --- 87527, Esophagogastroduodenosc opy, flexible, transoral; with biopsy, single or multiple CPT copyright 2020 [employer]. All rights reserved. The codes documented in this report are preliminary and upon agronomist review may be revised to meet current compliance requirements. (more content not included)... [employer] [facility] Flexible sigmoidoscopy study on 06-01-2023 [facility] Patient Name: Allie Rultedge Procedure Date: 05/30/2023 1:05 PM Date of : 1970 Admit Type: Outpatient Age: 53 Room: [place] [address] Gender: Female Note Status: Finalized Attending MD: [...] antiplatelet agents. Procedure Code(s): --- Professional --- 42999, Colonoscopy, flexible; with biopsy, single or multiple CPT copyright 2020 [employer]. All rights reserved. The codes documented in this report are preliminary and upon agronomist review may be revised to meet current compliance requirements. Attending Participation: I personally performed the entire procedure. Scope In: 1:23:39 PM Scope Out: 1:33:56 PM MD Andry Martin MD 05/30/2023 1:42:21 PM This report has been signed electronically by Andry Connelly MD Number of Addenda: 0 Note Initiated On: 05/30/2023 1:05 PM Estimated Blood Loss: Estimated blood loss was minimal. [employer] [facility] EGD Study observation Narrat iveon 05-30-2023 Radiology Study observation (narrative) [facility] Flexible sigmoidoscopy study on 05-30-2023 Radiology Study observation (narrative) [facility] Basic metabolic 2000 panelon 05-22-2023 Anion gap [Moles/Vol] 10 mmol/L 9 - 18 mmol/L [facility] Calcium [Mass/Vol] 9.8 mg/dL 8.5 - 10. 2 mg/dL [facility] Chloride [Moles/Vol] 101 mmol/L 97 - 10 5 mmol/L [facility] CO2 [Moles/Vol] 25 mmol/L 22 - 30 mmol/L [facility] Creatinine [Mass/Vol] 0.86 mg/dL 0.58 - 0.96 mg/dL [facility] Estimated Glomerular Filtration Rate 80 mL/min/1.73m >=60 mL/min/1.73m [facility] Glucose [Mass/Vol] 79 mg/dL 74 - 99 mg/dL [facility] Potassium [Moles/Vol] 4.1 mmol/L 3.7 - 5.1 mmol/L [facility] Sodium [Moles/Vol] 136 mmol/L 136 - 144 mmol/L [facility] Urea nitrogen [Mass/Vol] 18 mg/dL 7 - 21 mg/dL [facility] URIC ACID BLOODon 05-22-2023 Urate [Mass/Vol] 3.6 mg/dL 2.5 - 6.6 mg/dL [facility] ANES POSTPROC EVALon 023 ANES POSTPROC EVAL HNO ID: [id number] Author: Mary Kline MD Service: Anesthesiology Author Type: Anesthesiologist Type: Anesthesia Postprocedure Evaluation Filed: 11/07/2022 12:01 PM Note Text: POST ANESTHESIA EVALUATION NOTE : 1970 Procedure Summary Date: 11/07/22 Room / Location: [place] [address] / [place] Anesthesia Start: 948 Anesthesia Stop: 1024 [...] November 07, 2022 TIME: 12:01 PM CSN: [id number] [place] ANES PRE-OPon 11-07-2022 ANES PRE-OP HNO ID: [id number] Author: Mary Kline MD Service: Anesthesiology Author Type: Anesthesiologist Type: Anesthesia Preprocedure Evaluation Filed: 11/07/2022 9:04 AM Note Text: ANESTHESIOLOGY DAY OF SURGERY NOTE : 1970 Procedure Information Date/Time: 11/07/22 0955 Procedure: RELEASE TRIGGER FINGER - RIGHT RING AND LEFT MIDDLE FINGERS (Bilateral: Finger) Location: [place]02 / [place] Surgeons: Massimo Hicks MD Estimated body [...] November 07, 2022 TIME: 9:04 AM CSN: [id number] Normal [facility] HISTORY PHYSICALon HISTORY PHYSICAL HNO ID: [id number] Author: Taina Patino PA-C Service: Orthopaedic Surgery Author Type: Physician Sap Manager Type: HANDP Filed: 11/07/2022 9:27 AM Note Text: Massimo Hicks MD Department of Orthopaedics Orthopaedics [address] [facility] [address] Dept: [phone] Dept October 01, 2022 CHIEF COMPLAINT: Established [...] EXTRACAP,INSERT LENS Right 06/25/2022 S BALLOON,[place] [address] Medications: CURRENT MEDICATIONS Current Outpatient Medications Medication [...] Psych (no depression, anxiety) Massimo Hicks MD [place] OPERATIVE NOon 11-07-2022 OPERATIVE NO HNO ID: [id number] Author: Massimo Hicks MD Service: Orthopaedic Surgery Author Type: Physician Type: Operative Report Filed: 11/07/2022 10:43 AM Note Text: OPERATIVE/PROCEDURE REPORT LOG ID: [id number] SURGERY/PROCEDURE DATE: 11/07/2022 INCISION/PROCEDURE START TIME: 10:01 AM INCISION CLOSE/PROCEDURE END TIME: 10:19 AM SURGEON(S)/PROCEDURALIS T(S) AND BRASS PLATER(S): Surgeon(s) and Role: * Massimo Hicks MD - Primary Physician Sap Manager: Taina Patino PA-C Registered Nurse Town Marshal: Marnie Freitas RN SURGERY/PROCEDURE(S): Right, ring finger [...] SIGNATURE: Massimo Hicks MD PATIENT NAME: Allie Rutledge DATE: November 07, 2022 TIME: 10:38 AM [place] CNTHERAPYon 10-31-2022 CNTHERAPY OT/PT/Speech Visit ([place]) ALLIE RUTLEDGE ([id number]) 1970 F [place] Date Time Provider Department 10/31/22 9:45 AM MICHELLE PEREZ [place] Date Time Provider Department Center 10/31/2022 9:45 AM [id number], [facility]BECCA[facility] Reason for Visit: Occupational Therapy [...] by this patient by: PATIENT Linda Catherine, [place] DELIA Normal [facility] [place]OVEVA CARR RTon 023 [facility] US BREAST LTD RTon 3 [facility] CNTHERAPYon 10-17-2022 CNTHERAPY OT/PT/Speech Visit ([place]) ALLIE RUTLEDGE ([id number]) 1970 F [place] Date Time Provider Department 10/17/22 10:45 AM MICHELLE PEREZ Date Time Provider Department Center 10/17/2022 10:45 AM [id number], REBECCA[facility] Reason for Visit: [...] managed by this patient by: PATIENT Linda Gageo, OA Normal [facility] XR SHOULDER [id number] AP/SYLVIA E AP RIGHTon 10-09-2022 [facility] XR HAND GENERAL 3V PA/LAT/OB L BILATERALon 10-01-2022 [facility] [place] SCREENINGon 09-27-2022 [facility] CNTHERAPYon 09-19-2022 CNTHERAPY OT/PT/Speech Visit ([place]) ALLIE RUTLEDGE ([id number]) 1970 F [place] Date Time Provider Department 09/19/22 12:30 PM MICHELLE PEREZ Date Time Provider Department Center 09/19/2022 12:30 PM [id number], REBECCA[facility] Reason for Visit: OT EVAL [...] managed by this patient by: PATIENT Linda CatherineALMA DELIA Normal [facility] ANES POSTPROC EVALon 022 ANES POSTPROC EVAL HNO ID: [id number] Author: Florencio De La Fuente MD Service: Anesthesiology Author Type: Anesthesiologist Type: Anesthesia Postprocedure Evaluation Filed: 06/25/2022 12:00 PM Note Text: POST ANESTHESIA EVALUATION NOTE : 1970 Procedure Summary Date: 06/25/22 Room / Location: [place] [address] / [facility] Anesthesia Start: 957 Anesthesia Stop: 113 Procedures: PHACOEMULSIFICATION CATARACT IMPLANT INTRAOCULAR LENS W/O [...] June 25, 2022 TIME: 12:00 PM CSN: [id number] [place] ANES PRE-OPon 06-25-2022 ANES PRE-OP HNO ID: [id number] Author: Florencio De La Fuente MD Service: [...] W/INTRAOCULAR LENS POWER CALCULATION (Right: Eye) Location: [facility] OR / [facility] Surgeons: Jonathon Johnson MD Estimated body mass [...] June 25, 2022 TIME: 9:57 AM CSN: [id number] [place] HISTORY PHYSICALon HISTORY PHYSICAL HNO ID: [id number] Author: Jonathon Johnson MD Service: Ophthalmology Author [...] DATE: June 25, 2022 TIME: 10:02 AM [place] OPERATIVE NOon 06-25-2022 OPERATIVE NO HNO ID: [id number] Author: Jonathon Johnson MD Service: Ophthalmology Author Type: Physician Type: Operative Report Filed: 06/25/2022 11:35 AM Note Text: OPERATIVE/PROCEDURE REPORT OPHTHAMOLOGY LOG ID: [id number] SURGERY/PROCEDURE DATE: 06/25/2022 INCISION/PROCEDURE START TIME: 10:13 AM INCISION CLOSE/PROCEDURE END TIME: 11:27 AM SURGEON(S)/PROCEDURALIS T(S) AND BRASS PLATER(S): Surgeon(s) and Role: * Jonathon Johnson MD [...] Implant Name Type Inv. Item Serial No. Production Operator Lot No. LRB No. Used Action Model No. LENS ACRYSOF ULTRASERT +14.5 DIOPTER ACRYLIC IOL 1 PIECE FOLDABLE UV BLUE - [id number] Intraocular Lens LENS ACRYSOF ULTRASERT +14.5 DIOPTER ACRYLIC IOL 1 PIECE FOLDABLE UV BLUE [id number] [employer] Right 1 Implanted [id number] Ocular Co-Morbidities: Yes Intra-operative Complications None I/primary surgeon/proceduralist performed the entire procedure. SIGNATURE: Jonathon Johnson MD PATIENT NAME: Allie Rutledge DATE: June 25, 2022 TIME: 11:31 AM PAGER/CONTACT #: [phone] [place] ESR Westergren method (Bld) [Velocity]on 05-04-2022 ESR (Bld) [Velocity] 10 mm/h 0 - 20 mm/hr Cl [facility] C-REACTIVE PROTEIN (CRP)on 0 05-03-2022 CRP [Mass/Vol] <0.9 mg/dL [facility] RHEUMATOID FACTOR BLon 05-03 Rheumatoid factor Qn <16 IU/mL [facility] No Panel Information [facility] Vital Signs Date Time Vital Sign Value Performing Clinician Faci lity 06-03-2025 15:26-0400 Body height 154.[address] Ifeoma Davis MD Work Phone: [phone])[phone] [place] [address] 06-03-2025 15:26-0400 Body mass index (BMI) [Ratio] 27 kg/m2 Dr. Ifeoma Davis MD Work Phone: 4(989)860-638271 [place] [address] 06-03-2025 15:26-0400 Body weight 64.[address] Ifeoma Davis MD Work Phone: 6(023)899-677371 [place] [address] 05-27-2025 19:22-0400 Body temperature 98 [degF] Dr. Ifeoma Davis MD Work Phone: 5(728)765-412371 [place] [address] 05-27-2025 19:22-0400 Diastolic blood pressure 69 mm[Hg] Dr. Ifeoma Davis MD Work Phone: 1(992)699-458971 [place] [address] 05-27-2025 19:22-0400 Heart rate 72 /min Dr. Ifeoma Davis MD Work Phone: [phone])[phone] [place] [address] 05-27-2025 19:22-0400 Respiratory rate 16 /min Dr. Ifeoma Davis MD Work Phone: [phone])[phone] [place] [address] 05-27-2025 19:22-0400 SaO2% (BldA) [Mass fraction] 100 % Dr. Ifeoma Davis MD Work Phone: 4(835)[phone] [place] [address] 05-27-2025 19:22-0400 Systolic blood pressure 116 mm[Hg] Dr. Ifeoma Davis MD Work Phone: 7(423)[phone] [place] [address] 05-27-2025 17:07-0400 Body height 154.[address] Ifeoma Davis MD Work Phone: [facility] 05-27-2025 17:07-0400 Body mass index (BMI) [Ratio] 27.6 kg/m2 Dr. Ifeoma Davis MD Work Phone: [facility] 05-27-2025 17:07-0400 Body weight 66.[address] Ifeoma Davis MD Work Phone: [facility] 04-22-2025 10:29-0400 Body mass index (BMI) [Ratio] 27.7 kg/m2 Ifeoma Davis MD Work Phone: [facility] 04-22-2025 10:29-0400 Body weight 66.5 kg Ifeoma Davis MD Work Phone: [facility] 04-22-2025 10:29-0400 Diastolic blood pressure 79 mm[Hg] Ifeoma Davis MD Work Phone: [facility] 04-22-2025 10:29-0400 Heart rate 79 /min Ifeoma Davis MD Work Phone: [facility] 04-22-2025 10:29-0400 Respiratory rate 16 /min Ifeoma Davis MD Work Phone: [facility] 04-22-2025 10:29-0400 Systolic blood pressure 129 mm[Hg] Ifeoma Davis MD Work Phone: [facility] 04-11-2025 13:09-0400 Body mass index (BMI) [Ratio] 27.53 kg/m2 Aislinn ESCUDERO-C Work Phone: [facility] 04-11-2025 13:09-0400 Body temperature 97.2 [degF] Aislinn ESCUDERO-C Work Phone: [facility] 04-11-2025 13:09-0400 Body weight 66.1 kg Aislinn ESCUDERO-C Work Phone: [facility] 04-11-2025 13:09-0400 Diastolic blood pressure 62 mm[Hg] Aislinn Mcmullen PA-C Work Phone: [facility] 04-11-2025 13:09-0400 Heart rate 82 /min Aislinn Mcmullen PA-C Work Phone: [facility] 04-11-2025 13:09-0400 Respiratory rate 20 /min Aislinn Mcmullen PA-C Work Phone: [facility] 04-11-2025 13:09-0400 SaO2% (BldA) [Mass fraction] 98 % Aislinn Mcmullen PA-C Work Phone: [facility] 04-11-2025 13:09-0400 Systolic blood pressure 110 mm[Hg] Aislinn Mcmullen PA-C Work Phone: [facility] 03-24-2025 14:59-0400 Body height 154.9 cm Pacc 1 Work Phone: [facility] 03-24-2025 14:59-0400 Body mass index (BMI) [Ratio] 27.78 kg/m2 Pacc 1 Work Phone: [facility] 03-24-2025 14:59-0400 Body weight 66.68 kg Pacc 1 Work Phone: [facility] 03-24-2025 14:59-0400 Diastolic blood pressure 66 mm[Hg] Pacc 1 Work Phone: [facility] 03-24-2025 14:59-0400 Heart rate 80 /min Pacc 1 Work Phone: [facility] 03-24-2025 14:59-0400 Respiratory rate 18 /min Pacc 1 Work Phone: [facility] 03-24-2025 14:59-0400 SaO2% (BldA) [Mass fraction] 96 % Pacc 1 Work Phone: [facility] 03-24-2025 14:59-0400 Systolic blood pressure 108 mm[Hg] Pacc 1 Work Phone: [facility] 12-29-2024 15:08-0400 Body height 154.9 cm Ifeoma Davis MD Work Phone: [facility] 12-29-2024 15:08-0400 Body mass index (BMI) [Ratio] 27.66 kg/m2 Ifeoma Davis MD Work Phone: [facility] 12-29-2024 15:08-0400 Body weight 66.41 kg Ifeoma Davis MD Work Phone: [facility] 12-29-2024 15:08-0400 Diastolic blood pressure 66 mm[Hg] Ifeoma Davis MD Work Phone: [facility] 12-29-2024 15:08-0400 Heart rate 86 /min Ifeoma Davis MD Work Phone: [facility] 12-29-2024 15:08-0400 SaO2% (BldA) [Mass fraction] 97 % Ifeoma Davis MD Work Phone: [facility] 12-29-2024 15:08-0400 Systolic blood pressure 112 mm[Hg] Ifeoma Davis MD Work Phone: [phone] [place] [address] 12-09-2024 13:28-0400 Body height 152.[address] Ifeoma Davis MD Work Phone: [facility] 12-09-2024 13:28-0400 Body mass index (BMI) [Ratio] 29.5 kg/m2 Dr. Ifeoma Davis MD Work Phone: 6(908)[phone] [place] [address] 12-09-2024 13:28-0400 Body weight 68.[address] Ifeoma Davis MD Work Phone: 6(868)[phone] [place] [address] 11-24-2024 15:06-0400 Body height 152.[address] Ifeoma Davis MD Work Phone: [phone])[phone] [place] [address] 11-03-2024 14:09-0500 Body height 154.9 cm Ifeoma Davis MD Work Phone: [facility] 11-03-2024 14:09-0500 Body mass index (BMI) [Ratio] 29.25 kg/m2 Ifeoma Davis MD Work Phone: [facility] 11-03-2024 14:09-0500 Body weight 70.22 kg Ifeoma Davis MD Work Phone: [facility] 11-03-2024 14:09-0500 Diastolic blood pressure 78 mm[Hg] Ifeoma Davis MD Work Phone: [facility] 11-03-2024 14:09-0500 Heart rate 98 /min Ifeoma Davis MD Work Phone: [facility] 11-03-2024 14:09-0500 SaO2% (BldA) [Mass fraction] 96 % Ifeoma Davis MD Work Phone: [facility] 11-03-2024 14:09-0500 Systolic blood pressure 114 mm[Hg] Ifeoma Davis MD Work Phone: [facility] 10-31-2024 12:58-0500 Body mass index (BMI) [Ratio] 28.74 kg/m2 Chantal Alvarez BEAD CUTTER.ADMINISTRATIVE INTERN Work Phone: [facility] 10-31-2024 12:58-0500 Body temperature 97.11 [degF] Chantal Alvarez [employer]MIN[employer] Work Phone: [facility] 10-31-2024 12:58-0500 Body weight 69 kg Chantal Alvarez [employer]MIN[employer]N Work Phone: [facility] 10-31-2024 12:58-0500 Diastolic blood pressure 88 mm[Hg] Chantal Alvarez [employer]ADMINISTR[employer]IVE [employer]N Work Phone: [facility] 10-31-2024 12:58-0500 Heart rate 97 /min Chantal Alvarez [employer]MIN[employer]N Work Phone: [facility] 10-31-2024 12:58-0500 Respiratory rate 18 /min Chantal Alvarez [employer]MINISTR[employer]IVE [employer]N Work Phone: [facility] 10-31-2024 12:58-0500 SaO2% (BldA) [Mass fraction] 99 % Chantal Alvarez [employer]MIN[employer]IVE [employer]N Work Phone: [facility] 10-31-2024 12:58-0500 Systolic blood pressure 141 mm[Hg] Chantal Segura [employer]MIN[employer] Work Phone: [facility] 10-12-2024 15:14-0500 Body mass index (BMI) [Ratio] 29.78 kg/m2 Ifeoma Davis MD Work Phone: [facility] 10-12-2024 15:14-0500 Body temperature 96.91 [degF] Ifeoma Davis MD Work Phone: [facility] 10-12-2024 15:14-0500 Body weight 71.49 kg Ifoema Davis MD Work Phone: [facility] 10-12-2024 15:14-0500 Diastolic blood pressure 63 mm[Hg] Ifeoma Davis MD Work Phone: [facility] 10-12-2024 15:14-0500 Heart rate 118 /min Ifeoma Davis MD Work Phone: [facility] 10-12-2024 15:14-0500 Respiratory rate 16 /min Ifeoma Davis MD Work Phone: [facility] 10-12-2024 15:14-0500 SaO2% (BldA) [Mass fraction] 99 % Ifeoma Davis MD Work Phone: [facility] 10-12-2024 15:14-0500 Systolic blood pressure 106 mm[Hg] Ifeoma Davis MD Work Phone: [facility] 10-07-2024 18:25-0500 Body mass index (BMI) [Ratio] 30.41 kg/m2 Calli Gerber [employer] Work Phone: [facility] 10-07-2024 18:25-0500 Body temperature 98.2 [degF] Calli Gerber [employer]MIN[employer]IVE [employer]N Work Phone: [facility] 10-07-2024 18:25-0500 Body weight 73 kg Calli Gerber [employer]MIN[employer]IVE [employer]N Work Phone: [facility] 10-07-2024 18:25-0500 Diastolic blood pressure 62 mm[Hg] Calli Gerber [employer]MIN[employer]IVE [employer]N Work Phone: [facility] 10-07-2024 18:25-0500 Heart rate 103 /min Calli Gerber [employer]MIN[employer]IVE [employer]N Work Phone: [facility] 10-07-2024 18:25-0500 Respiratory rate 16 /min Calli Gerber [employer]MIN[employer]RATIVE [employer]N Work Phone: [facility] 10-07-2024 18:25-0500 SaO2% (BldA) [Mass fraction] 96 % Calli Gerber [employer]MIN[employer]IVE [employer]N Work Phone: [facility] 10-07-2024 18:25-0500 Systolic blood pressure 124 mm[Hg] Calli Gerber [employer]MIN[employer]N Work Phone: [facility] 09-29-2024 14:11-0500 Body mass index (BMI) [Ratio] 30.42 kg/m2 Ifeoma Davis MD Work Phone: [facility] [facility] 09-29-2024 14:11-0500 Body weight 73.03 kg Ifeoma Davis MD Work Phone: [facility] 09-29-2024 14:11-0500 Diastolic blood pressure 88 mm[Hg] Ifeoma Davis MD Work Phone: [facility] 09-29-2024 14:11-0500 Heart rate 86 /min Ifeoma Davis MD Work Phone: [facility] 09-29-2024 14:11-0500 Respiratory rate 16 /min Ifeoma Davis MD Work Phone: [facility] 09-29-2024 14:11-0500 Systolic blood pressure 138 mm[Hg] Ifeoma Davis MD Work Phone: [facility] 09-24-2024 14:43-0500 Body mass index (BMI) [Ratio] 30.27 kg/m2 Michelle Becerril BEAD CUTTER.ADMINISTRATIVE INTERN Work Phone: [facility] 09-24-2024 14:43-0500 Body weight 72.67 kg Michelle Elsy BEAD CUTTER.ADMINISTRATIVE INTERN Work Phone: [facility] 09-24-2024 14:43-0500 Diastolic blood pressure 81 mm[Hg] Michelle Elsy BEAD CUTTER.ADMINISTRATIVE INTERN Work Phone: [facility] 09-24-2024 14:43-0500 Heart rate 101 /min Michelle Elsy BEAD CUTTER.ADMINISTRATIVE INTERN Work Phone: [facility] 09-24-2024 14:43-0500 SaO2% (BldA) [Mass fraction] 98 % Michelle Elsy BEAD CUTTER.ADMINISTRATIVE INTERN Work Phone: [facility] 09-24-2024 14:43-0500 Systolic blood pressure 122 mm[Hg] Michelle Elsy BEAD CUTTER.ADMINISTRATIVE INTERN Work Phone: [facility] 09-15-2024 10:09-0500 Body mass index (BMI) [Ratio] 29.85 kg/m2 Destiney Helder BEAD CUTTER.ADMINISTRATIVE INTERN Work Phone: [facility] 09-15-2024 10:09-0500 Body weight 71.67 kg Destiney Helder BEAD CUTTER.ADMINISTRATIVE INTERN Work Phone: [facility] 09-15-2024 10:09-0500 Diastolic blood pressure 66 mm[Hg] Destiney Helder BEAD CUTTER.ADMINISTRATIVE INTERN Work Phone: [facility] 09-15-2024 10:09-0500 Systolic blood pressure 118 mm[Hg] Destiney Helder BEAD CUTTER.ADMINISTRATIVE INTERN Work Phone: [facility] 07-08-2024 17:38-0500 Body mass index (BMI) [Ratio] 28.87 kg/m2 Letty Silva BEAD CUTTER.ADMINISTRATIVE INTERN Work Phone: [facility] 07-08-2024 17:38-0500 Body temperature 98.4 [degF] Letty Silva BEAD CUTTER.ADMINISTRATIVE INTERN Work Phone: [facility] 07-08-2024 17:38-0500 Body weight 69.3 kg Letty Silva BEAD CUTTER.ADMINISTRATIVE INTERN Work Phone: [facility] 07-08-2024 17:38-0500 Diastolic blood pressure 82 mm[Hg] Letty Silva BEAD CUTTER.ADMINISTRATIVE INTERN Work Phone: [facility] 07-08-2024 17:38-0500 Heart rate 109 /min Letty Silva BEAD CUTTER.ADMINISTRATIVE INTERN Work Phone: [facility] 07-08-2024 17:38-0500 Respiratory rate 18 /min Letty Silva BEAD CUTTER.ADMINISTRATIVE INTERN Work Phone: [facility] 07-08-2024 17:38-0500 SaO2% (BldA) [Mass fraction] 97 % Letty Silva BEAD CUTTER.ADMINISTRATIVE INTERN Work Phone: [facility] 07-08-2024 17:38-0500 Systolic blood pressure 128 mm[Hg] Letty Silva BEAD CUTTER.ADMINISTRATIVE INTERN Work Phone: [facility] 04-11-2024 11:57-0400 Body mass index (BMI) [Ratio] 28.78 kg/m2 Krislyn Aberegg PA Work Phone: [facility] 04-11-2024 11:57-0400 Body temperature 97.9 [degF] Krislyn Aberegg PA Work Phone: [facility] 04-11-2024 11:57-0400 Body weight 69.1 kg Krislyn Aberegg PA Work Phone: [facility] 04-11-2024 11:57-0400 Diastolic blood pressure 70 mm[Hg] Krislyn Aberegg PA Work Phone: [facility] 04-11-2024 11:57-0400 Heart rate 92 /min Krislyn Aberegg PA Work Phone: [facility] 04-11-2024 11:57-0400 Respiratory rate 16 /min Krislyn Aberegg PA Work Phone: [facility] 04-11-2024 11:57-0400 SaO2% (BldA) [Mass fraction] 97 % Krislyn Aberegg PA Work Phone: [facility] 04-11-2024 11:57-0400 Systolic blood pressure 122 mm[Hg] Krislyabeba Aberegg PA Work Phone: [facility] 03-31-2024 12:47-0400 Body height 154.9 cm Ifeoma Davis MD Work Phone: [facility] 03-31-2024 12:47-0400 Body mass index (BMI) [Ratio] 28.34 kg/m2 Ifeoma Davis MD Work Phone: [facility] 03-31-2024 12:47-0400 Body weight 68.04 kg Ifeoma Davis MD Work Phone: [facility] 03-31-2024 12:47-0400 Diastolic blood pressure 70 mm[Hg] Ifeoma Davis MD Work Phone: [facility] 03-31-2024 12:47-0400 Heart rate 80 /min Ifeoma Davis MD Work Phone: [facility] 03-31-2024 12:47-0400 Respiratory rate 16 /min Ifeoma Davis MD Work Phone: [facility] 03-31-2024 12:47-0400 Systolic blood pressure 128 mm[Hg] Ifeoma Davis MD Work Phone: [facility] 12-24-2023 12:58-0400 Body height 151.1 cm Destiney [place] BEAD CUTTER.ADMINISTRATIVE INTERN Work Phone: [facility] 12-24-2023 12:58-0400 Body mass index (BMI) [Ratio] 30.58 kg/m2 Destiney [place] BEAD CUTTER.ADMINISTRATIVE INTERN Work Phone: [facility] 12-24-2023 12:58-0400 Body weight 69.85 kg Destiney Helder BEAD CUTTER.ADMINISTRATIVE INTERN Work Phone: [facility] 12-24-2023 12:58-0400 Diastolic blood pressure 82 mm[Hg] Destiney [place] BEAD CUTTER.ADMINISTRATIVE INTERN Work Phone: [facility] 12-24-2023 12:58-0400 Systolic blood pressure 126 mm[Hg] Destiney Helder BEAD CUTTER.ADMINISTRATIVE INTERN Work Phone: [facility] 11-18-2023 10:09-0400 Body temperature 98.29 [degF] Adriana Young BEAD CUTTER.ADMINISTRATIVE INTERN Work Phone: [facility] 11-18-2023 10:09-0400 Body weight 70 kg Adriana Young BEAD CUTTER.ADMINISTRATIVE INTERN Work Phone: [facility] 11-18-2023 10:09-0400 Diastolic blood pressure 72 mm[Hg] Adriana Young BEAD CUTTER.ADMINISTRATIVE INTERN Work Phone: [facility] 11-18-2023 10:09-0400 Heart rate 80 /min Adriaan Young BEAD CUTTER.ADMINISTRATIVE INTERN Work Phone: [facility] 11-18-2023 10:09-0400 Respiratory rate 18 /min Adriana Young BEAD CUTTER.ADMINISTRATIVE INTERN Work Phone: [facility] 11-18-2023 10:09-0400 SaO2% (BldA) [Mass fraction] 96 % Adriana Young BEAD CUTTER.ADMINISTRATIVE INTERN Work Phone: [facility] 11-18-2023 10:09-0400 Systolic blood pressure 124 mm[Hg] Adriana Young BEAD CUTTER.ADMINISTRATIVE INTERN Work Phone: [facility] 05-30-2023 14:00-0400 Diastolic blood pressure 81 mm[Hg] Andry Connelly MD Work Phone: [facility] 05-30-2023 14:00-0400 Heart rate 81 /min Andry Connelly MD Work Phone: [facility] 05-30-2023 14:00-0400 Respiratory rate 16 /min Andry Connelly MD Work Phone: [facility] 05-30-2023 14:00-0400 SaO2% (BldA) [Mass fraction] 99 % Andry Connelly MD Work Phone: [facility] 05-30-2023 14:00-0400 Systolic blood pressure 126 mm[Hg] Andry Connelly MD Work Phone: [facility] 05-30-2023 13:38-0400 Body temperature 98.1 [degF] Andry Connelly MD Work Phone: [facility] 05-30-2023 12:42-0400 Body height 152.4 cm Andry Connelly MD Work Phone: [facility] 05-30-2023 12:42-0400 Body mass index (BMI) [Ratio] 30.66 kg/m2 Andry Connelly MD Work Phone: [facility] 05-30-2023 12:42-0400 Body weight 71.22 kg Andry Connelly MD Work Phone: [facility] 05-21-2023 11:22-0400 Body height 149.9 cm Virginia Denbow PA-C Work Phone: [facility] 05-21-2023 11:22-0400 Body temperature 98.4 [degF] Virginia Denbow PA-C Work Phone: [facility] 05-21-2023 11:22-0400 Body weight 73.94 kg Virginia Denbow PA-C Work Phone: [facility] 05-21-2023 11:22-0400 Diastolic blood pressure 68 mm[Hg] Virginia Denbow PA-C Work Phone: [facility] 05-21-2023 11:22-0400 Heart rate 98 /min Virginia Denbow PA-C Work Phone: [facility] 05-21-2023 11:22-0400 Respiratory rate 12 /min Virginia Denbow PA-C Work Phone: [facility] 05-21-2023 11:22-0400 SaO2% (BldA) [Mass fraction] 99 % Virginia Denbow PA-C Work Phone: [facility] 05-21-2023 11:22-0400 Systolic blood pressure 124 mm[Hg] Virginia Denbow PA-C Work Phone: [facility] 04-30-2023 12:59-0400 Body height 149.9 cm Cande Kalka PA-C Work Phone: [facility] 04-30-2023 12:59-0400 Body weight 73.03 kg Cande Kalka PA-C Work Phone: [facility] 04-30-2023 12:59-0400 Diastolic blood pressure 72 mm[Hg] Cande Kalka PA-C Work Phone: [facility] 04-30-2023 12:59-0400 Heart rate 94 /min Cande Kalka PA-C Work Phone: [facility] 04-30-2023 12:59-0400 Systolic blood pressure 122 mm[Hg] Cande Kalka PA-C Work Phone: [facility] 10-16-2022 12:58-0500 Body height 152.4 cm Ifeoma Davis MD Work Phone: [facility] 10-16-2022 12:58-0500 Body temperature 97.81 [degF] Ifeoma Davis MD Work Phone: [facility] 10-16-2022 12:58-0500 Body weight 71.67 kg Ifeoma Davis MD Work Phone: [facility] 10-16-2022 12:58-0500 Diastolic blood pressure 70 mm[Hg] Ifeoma Davis MD Work Phone: [facility] 10-16-2022 12:58-0500 Heart rate 102 /min Ifeoma Davis MD Work Phone: [facility] 10-16-2022 12:58-0500 Respiratory rate 12 /min Ifeoma Davis MD Work Phone: [facility] 10-16-2022 12:58-0500 SaO2% (BldA) [Mass fraction] 97 % Ifeoma Davis MD Work Phone: [facility] 10-16-2022 12:58-0500 Systolic blood pressure 120 mm[Hg] Ifeoma Davis MD Work Phone: [facility] 06-25-2022 11:48-0400 Diastolic blood pressure 80 mm[Hg] Jonathon Johnson MD Work Phone: [facility] 06-25-2022 11:48-0400 Respiratory rate 16 /min Jonathon Johnson MD Work Phone: [facility] 06-25-2022 11:48-0400 SaO2% (BldA) [Mass fraction] 100 % Jonathon Johnson MD Work Phone: [facility] 06-25-2022 11:48-0400 Systolic blood pressure 141 mm[Hg] Jonathon Johnson MD Work Phone: [facility] 06-25-2022 11:36-0400 Body temperature 97.3 [degF] Jonathon Johnson MD Work Phone: [facility] 06-25-2022 09:44-0400 Body height 152.4 cm Jonathon Johnson MD Work Phone: [facility] 06-25-2022 09:44-0400 Body weight 70.31 kg Jonathon Johnson MD Work Phone: [facility] 06-25-2022 09:44-0400 Heart rate 92 /min Jonathon Johnson MD Work Phone: [facility] 06-20-2022 12:40-0400 Body height 152.4 cm Charlene Grossman MD Work Phone: [facility] 06-20-2022 12:40-0400 Body weight 70.31 kg Charlene Grossman MD Work Phone: [facility] 06-20-2022 12:40-0400 Diastolic blood pressure 70 mm[Hg] Charlene Grossman MD Work Phone: [facility] 06-20-2022 12:40-0400 Heart rate 88 /min Charlene Grossman MD Work Phone: [facility] 06-20-2022 12:40-0400 Respiratory rate 18 /min Charlene Grossman MD Work Phone: [facility] 06-20-2022 12:40-0400 SaO2% (BldA) [Mass fraction] 98 % Charlene Grossman MD Work Phone: [facility] 06-20-2022 12:40-0400 Systolic blood pressure 125 mm[Hg] Charlene Grossman MD Work Phone: [facility] 12-25-2021 13:03-0400 Body height 152.4 cm Ifeoma Davis MD Work Phone: [facility] 12-25-2021 13:03-0400 Body temperature 98.49 [degF] fIeoma Davis MD Work Phone: [facility] 12-25-2021 13:03-0400 Body weight 73.03 kg Ifeoma Davis MD Work Phone: [facility] 12-25-2021 13:03-0400 Diastolic blood pressure 76 mm[Hg] Ifeoma Davis MD Work Phone: [facility] 12-25-2021 13:03-0400 Heart rate 100 /min Ifeoma Davis MD Work Phone: [facility] 12-25-2021 13:03-0400 Respiratory rate 12 /min Ifeoma Davis MD Work Phone: [facility] 12-25-2021 13:03-0400 SaO2% (BldA) [Mass fraction] 97 % Ifeoma Davis MD Work Phone: [facility] 12-25-2021 13:03-0400 Systolic blood pressure 132 mm[Hg] Ifeoma Davis MD Work Phone: [facility] 12-04-2021 13: Body height 152.4 cm Destiney [place] BEAD CUTTER.ADMINISTRATIVE INTERN Work Phone: [facility] 12-04-2021 13:040 Body weight 74.39 kg Destiney [place] BEAD CUTTER.ADMINISTRATIVE INTERN Work Phone: [facility] 12-04-2021 13:11040 Diastolic blood pressure 72 mm[Hg] Destiney Saint [place]is BEAD CUTTER.ADMINISTRATIVE INTERN Work Phone: [facility] 12-04-2021 13:11040 Systolic blood pressure 120 mm[Hg] Destiney Helder BEAD CUTTER.ADMINISTRATIVE INTERN Work Phone: [facility] Encounters Encounter Date Encounter Type Care Provider Facility Start: 06-23-2025 End: 06-23-2025 [facility] Start: 06-21-2025 ambulatory [facility] Facility:[facility] Start: 06-17-2025 End: 06-17-2025 Emergency department patient visit Patti Piña Facility:[facility] Start: 06-17-2025 Encounter for other preprocedural examination Phillip Pozo [facility] Start: 06-14-2025 End: 06-14-2025 [facility] Start: 06-11-2025 ambulatory [facility] Facility:[facility] Start: 06-04-2025 End: 06-04-[address] Phillip Pozo DO -[facility] Work Phone: Start: 06-04-2025 End: 06-04-[address] Ifeoma Davis MD Work Phone: -[facility] Start: 06-03-2025 End: 06-03-[address] Michael Cameron MD -[facility] Work Phone: Start: 06-03-2025 End: 06-03-[address] Ifeoma Davis MD Work Phone: -[facility] Start: 05-27-2025 End: 05-27-2025 Emergency department patient visit Dr. Juan Manuel Turpin MD -Emergency Department Work Phone: Start: 05-27-2025 Patient encounter procedure IFEOMA DAVIS [facility] Start: 05-27-2025 End: 05-27-2025 ambulatory [facility] Facility:[facility] Start: 05-17-2025 End: 05-17-2025 Telephone encounter Aislinn Mcmullen PA-C Work Phone: Pulmonary Medicine Comment on above: Refill Request Start: 05-07-2025 End: 05-07-[address] Ifeoma Davis MD Work Phone: -[facility] Start: 05-07-2025 End: 05-07-[address] Michael Cameron MD -[facility] Work Phone: Start: 05-07-2025 End: 05-07-2025 [facility] Facility:[facility] Start: 04-28-2025 End: 04-29-2025 Telephone encounter Ifeoma Davis MD Work Phone: [facility] [place] Start: 04-22-2025 End: 04-22-2025 Telephone encounter Ifeoma Davis MD Work Phone: [facility] [place] Comment on above: Medication Problem Start: 04-22-2025 End: 04-22-2025 [facility] Facility:[facility] Start: 04-22-2025 End: 04-22-2025 Office outpatient visit 25 minutes Ifeoma Davis MD Work Phone: [facility] [place] Comment on above: Intertrigo (Primary Dx); Status post glaucoma surgery; Primary hypertension; DAYSI (obstructive sleep apnea); PXE (pseudoxanthoma elasticum); Poison boo dermatitis Start: 04-20-2025 End: 04-20-2025 [facility] Facility:[facility] Start: 04-20-2025 End: 04-20-2025 Postop follow up visit related to original px Cynthia Ramos MD Work Phone: [facility] Comment on above: Follow-up examinatio n after eye surgery (Primary Dx); Secondary glaucoma, indeterminate stage, bilateral Start: 04-16-2025 End: 04-16-[address] Edgar Beltran MD -[facility] Start: 04-16-2025 End: 04-16-[address] Ifeoma Davis MD Work Phone: -[facility] Start: 04-11-2025 End: 04-11-2025 Patient encounter procedure Aislinn ESCUDERO-Xiang Work Phone: [facility] Comment on above: Viral URI with cough (Primary Dx) Start: 04-11-2025 End: 04-11-2025 ambulatory AISLINN MCMULLEN Facility:[facility] Start: 04-03-2025 End: 04-03-2025 Telephone encounter Reynaldo Alford MD Work Phone: Ophthalmology Start: 04-02-2025 End: 04-02-2025 [facility] Start: 04-02-2025 End: 04-02-2025 Patient encounter procedure Adriana Talbert MD Work Phone: Ophthalmology Comment on above: Follow-up examinatio n after eye surgery (Primary Dx) Start: 03-31-2025 End: 03-31-2025 Telephone encounter Ifeoma Davis MD Work Phone: [facility] [place] Comment on above: Medication Problem Refill Request Start: 03-30-2025 End: 03-31-2025 Telephone encounter Adriana Talbert MD Work Phone: Ophthalmology Comment on above: Tearing OS Start: 03-26-2025 End: 03-26-2025 Telephone encounter Brittaney Mckeon MD Work Phone: Ophthalmology Start: 03-25-2025 End: 03-25-2025 ambulatory [facility] Facility:[facility] Start: 03-24-2025 Encounter for other preprocedural examination IFEOMA DAVIS [facility] Start: 03-24-2025 End: 03-24-2025 ambulatory IFEOMA DAVIS Facility:[facility] Start: 03-24-2025 End: 03-24-2025 Admission to establishment [facility] Work Phone: Pre Anesthesia Start: 03-24-2025 End: 03-24-2025 Anesthesia consultation [facility] Work Phone: Pre Anesthesia Comment [...] Start: 03-24-2025 End: 03-24-2025 Preprocedural examination done [facility] 1 Work Phone: [facility] Work Phone: Start: 03-24-2025 End: 03-24-2025 Telephone encounter Janet Martinez MD Work Phone: Ophthalmology Comment on above: Patient Question Start: 03-23-2025 End: 03-23-2025 Telephone encounter Cynthia Ramos MD Work Phone: [facility] Comment on above: Appointment (Urgent issue.) Start: 03-23-2025 End: 03-23-2025 Office consultation new/estab patient 60 min Janet Martinez MD Work Phone: Ophthalmology Comment on above: Leaking of conjuncti rah drainage bleb (Primary Dx) Start: 03-23-2025 End: 03-23-2025 ambulatory IFEOMA DAVIS Facility:[facility] Start: 03-16-2025 End: 03-19-2025 ambulatory Ifeoma Davis MD Work Phone: Internal Medicine [place] [id number] Start: 03-10-2025 End: 03-10-[address] Edgar Beltran MD -[facility] Start: 03-10-2025 End: 03-10-[address] Ifeoma Davis MD Work Phone: [facility] Start: 03-02-2025 End: 03-02-2025 Nursing evaluation of patient and report Mi Nurse Work Phone: [facility] [place] Comment on above: Immunization due (Pr imary Dx) Start: 03-02-2025 End: 03-02-2025 ambulatory [facility] Facility:[facility] Start: 03-01-2025 End: 03-02-2025 Telephone encounter Ifeoma Davis MD Work Phone: [facility] [place] Comment on above: Orders Start: 02-25-2025 End: 02-25-2025 Telephone encounter Ifeoma Davis MD Work Phone: [facility] [place] Comment on above: TDAP order Start: 01-12-2025 End: 01-13-2025 Telephone encounter Michelle Becerril APRN.ADMINISTRATIVE INTERN Work Phone: Neurology Comment on above: DME Order Request Start: 12-30-2024 End: 12-30-2024 Telephone encounter Michelle Becerril APRN.ADMINISTRATIVE INTERN Work Phone: Neurology Comment on above: Results Start: 12-29-2024 End: 12-29-2024 Office outpatient visit 25 minutes Ifeoma Davis MD Work Phone: [facility] [place] Comment on above: Primary hypertension (Primary Dx); Depression, unspecified depression type; Trigger finger, unspecified finger, unspecified laterality; Hypokalemia; Anxiety; Legally blind; Sleep apnea, unspecified type Start: 12-29-2024 End: 12-29-2024 ambulatory [facility] Facility:[facility] Start: 12-23-2024 End: 12-23-2024 Refill Ifeoma Davis MD Work Phone: [facility] [place] Comment on above: Refill Request Start: 12-17-2024 End: 12-17-2024 Follow-up encounter Michelle Becerril APRN.ADMINISTRATIVE INTERN Work Phone: Neurology Comment on above: Results Start: 12-09-2024 End: 12-09-[address] Phillpi Pozo DO -[facility] Work Phone: Start: 12-09-2024 End: 12-09-2024 ambulatory [facility] Facility:[facility] Start: 12-07-2024 End: 12-08-2024 Telephone encounter Ifeoma Davis MD Work Phone: [facility] [place] Comment on above: Patient Question Start: 12-01-2024 End: 12-07-2024 Telephone encounter Michelle Becerril APRN.ADMINISTRATIVE INTERN Work Phone: Neurology Comment on above: Results Start: 11-24-2024 End: 11-24-[address] Ifeoma Davis MD Work Phone: [facility] Work Phone: Start: 11-24-2024 End: 11-24-2024 [facility]: Start: 11-24-2024 End: 11-24-[address] Edgar Beltran MD -[facility] Start: 11-24-2024 End: 11-24-2024 ambulatory Edgar Beltran Facility:[facility] Start: 11-24-2024 End: 11-24-2024 ambulatory [facility] Facility:[facility] Start: 11-20-2024 End: 11-20-2024 Telephone encounter David Anna APRN.ADMINISTRATIVE INTERN Work Phone: [facility] [place] Comment on above: Results, Lab Start: 11-19-2024 End: 11-19-2024 [facility] Start: 11-19-2024 End: 11-19-2024 Patient encounter procedure David Anna APRN.ADMINISTRATIVE INTERN Work Phone: [facility] [place] Comment on above: Hypertension, unspec ified type (Primary Dx); Dry mouth; Depression, unspecified depression type; Anxiety; Other fatigue; DAYSI (obstructive sleep apnea) Start: 11-17-2024 End: 12-18-2024 Patient encounter procedure [facility] Comment on above: Snoring; Excessive daytime sleepiness; Non-restorative sleep; PLMD (periodic limb movement disorder); Primary hypertension Start: 11-17-2024 End: 11-17-2024 ambulatory KIMBERLEY BYRD Facility:[facility] Start: 11-05-2024 End: 11-05-2024 Follow-up encounter Ifeoma Davis MD Work Phone: Geriatrics Start: 11-03-2024 End: 11-03-2024 ambulatory [facility] Facility:[facility] Start: 11-03-2024 End: 11-03-2024 Office outpatient visit 25 minutes Ifeoma Davis MD Work Phone: Internal Medicine [place] Comment on above: Vitamin D deficiency (Primary Dx); Dry mouth; Vitamin B12 deficiency; Iron deficiency; Other fatigue Start: 11-02-2024 End: 11-02-2024 Follow-up encounter Britta ESCUDERO Work Phone: [facility] Start: 10-31-2024 End: 10-31-2024 ambulatory [facility] Facility:[facility] Start: 10-31-2024 End: 10-31-2024 Patient encounter procedure Chantal Segura APRN.CNP Work Phone: [facility] Comment on above: Dysuria (Primary Dx) ; Acute lower UTI Start: 10-22-2024 End: 12-22-2024 Follow-up encounter Destiney Pendleton APRN.CNP Work Phone: OB/Gynecology Start: 10-21-2024 End: 10-21-2024 ambulatory [facility] Facility:[facility] Start: 10-21-2024 Encounter for gynecological examination (general) (routine) without abnormal findings [facility] Start: 10-21-2024 End: 10-21-2024 Patient encounter status Screen [facility] Start: 10-21-2024 End: 10-21-2024 Subsequent hospital visit by physician Screen Mammo On License Of [facility] Comment on above: Encounter for gyneco logical examination (general) (routine) without abnormal findings [Z01.419] Start: 10-13-2024 End: 10-13-2024 [facility] Facility:[facility] Start: 10-13-2024 End: 10-13-2024 Office outpatient visit 15 minutes Cynthia Ramos MD Work Phone: [facility] Comment on above: Secondary glaucoma, indeterminate stage, bilateral (Primary Dx); Angioid streaks of macula; Pseudoxanthoma elasticum Start: 10-12-2024 End: 10-12-2024 [facility] Facility:[facility] Start: 10-12-2024 End: 10-12-2024 Office outpatient visit 25 minutes Ifeoma Davis MD Work Phone: Internal Medicine [place] Comment on above: Anxiety (Primary Dx) ; Screening for depression; Encounter for screening examination for other mental health and behavioral disorders; Dry mouth; Insomnia, unspecified type; Current moderate episode of major depressive disorder without prior episode (HCC) Start: 10-07-2024 End: 10-07-2024 [facility] Start: 10-07-2024 End: 10-07-2024 Patient encounter procedure Calli Gerber APRN.ADMINISTRATIVE INTERN Work Phone: Internal Medicine [place] Comment on above: Memory impairment (P rimary Dx); Dry mouth; Depression, unspecified depression type Start: 10-07-2024 End: 10-12-2024 Telephone encounter Ifeoma Davis MD Work Phone: Internal Medicine [place] Comment on above: Future Appointment Patient Question Start: 09-29-2024 End: 09-29-2024 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 Start: 09-24-2024 End: 09-24-2024 Patient encounter procedure Michelle Becerril APRN.ADMINISTRATIVE INTERN Work Phone: Neurology Comment on above: Excessive daytime sl eepiness (Primary Dx); Non-restorative sleep Start: 09-24-2024 End: 09-24-2024 ambulatory [facility] Facility:[facility] Start: 09-15-2024 End: 09-15-2024 ambulatory [facility] Facility:[facility] Start: 09-15-2024 End: 09-15-2024 Patient encounter procedure Destiney Pendleton MURTAZA.ADMINISTRATIVE INTERN Work Phone: OB/Gynecology Comment on above: Vasomotor symptoms d ue to menopause (Primary Dx) Start: 09-08-2024 End: 09-08-2024 Refill Ifeoma Davis MD Work Phone: Internal Medicine [place] Comment on above: Refill Request Start: 08-12-2024 End: 04-13-2025 Telephone encounter Ifeoma Davis MD Work Phone: Internal Medicine [place] Comment on above: Patient Update Start: 08-10-2024 End: 08-10-2024 ambulatory Jon Ross MA [facility] [place] Start: 08-10-2024 End: 08-10-2024 Patient encounter procedure Jon Ross MA [facility] [place] Comment on above: Population Health Na vigation Outreach ([facility]) Start: 07-27-2024 End: 08-05-2024 Telephone encounter Ifeoma Davis MD Work Phone: Family Medicine [place] Comment on above: Results Start: 07-22-2024 End: 07-22-2024 ambulatory [facility] Facility:[facility] Start: 07-15-2024 End: 07-15-2024 ambulatory Edgar Ruby Facility:[facility] Start: 07-10-2024 End: 07-10-2024 Telephone encounter Ifeoma Davis MD Work Phone: Internal Medicine [place] Comment on above: Fax Request Start: 07-09-2024 End: 07-09-2024 Telephone encounter Dariana Young BEAD CUTTER.ADMINISTRATIVE INTERN Work Phone: [facility] Comment on above: Results Start: 07-08-2024 End: 07-08-2024 ambulatory IFEOMA DAVIS Facility:[facility] Start: 07-08-2024 End: 07-08-2024 Patient encounter procedure Letty Silva BEAD CUTTER.ADMINISTRATIVE INTERN Work Phone: [facility] Comment on above: Close exposure to [place] VID-19 virus (Primary Dx) Start: 07-07-2024 End: 07-09-2024 Refill Ifeoma Davis MD Work Phone: [facility] Comment on above: Refill Request Orders Start: 06-29-2024 End: 06-30-2024 Refill Ifeoma Davis MD Work Phone: [facility] Comment on above: Refill Request Start: 06-15-2024 End: 06-15-2024 [facility] [place] Start: 06-15-2024 End: 06-15-2024 Patient encounter procedure Chana Bridges MA [facility] Comment on above: Population Health Na vigation Outreach (Med Adherence) Start: 06-12-2024 End: 06-12-2024 ambulatory Jon Ross RISHI [facility] Start: 06-12-2024 End: 06-12-2024 Patient encounter procedure Jon Ross RISHI [facility] Comment on above: Population Health Na vigation Outreach ([facility] Start: 05-29-2024 End: 05-29-2024 ambulatory Eileenjuli Dennisonon [facility] [place] Start: 05-29-2024 End: 05-29-2024 Patient encounter procedure Eileen Quinteros [facility] Comment on above: Population Health Na vigation Outreach (Med adherence ) Start: 05-14-2024 End: 06-29-2024 Telephone encounter Ifeoma Davis MD Work Phone: Internal Medicine [place] Comment on above: Patient Question Start: 05-06-2024 End: 05-11-2024 Telephone encounter Cynthia Ramos MD Work Phone: [facility] Comment on above: Letter Start: 05-01-2024 End: 05-06-2024 Telephone encounter Cynthia Ramos MD Work Phone: [facility] [place] Comment on above: Letter Start: 2024 End: 2024 Refill Ifeoma Davis MD Work Phone: [facility] [place] Comment on above: Refill Request Start: 04-13-2024 Telephone encounter Cynthia cheatham MD Work Phone: [facility] [place] Comment on above: Patient Update Start: 04-11-2024 End: 04-11-2024 Patient encounter procedure Britta ESCUDERO Work Phone: [facility] Comment on above: Allergic contact roman matitis due to plants, except food (Primary Dx) Start: 04-02-2024 Telephone encounter Ifeoma deluna MD Work Phone: Internal Medicine [place] Comment on above: Results Start: 03-31-2024 End: 03-31-2024 Office outpatient visit 25 minutes Ifeoma Davis MD Work Phone: Internal Medicine [place] Comment on above: Annual wellness visi t (Primary Dx); 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 injury; Primary hypertension; Trigger finger, unspecified finger, unspecified laterality; Special screening examination for viral disease; Screening for HIV (human immunodeficiency virus); Legally blind; Mixed hyperlipidemia Start: 03-31-2024 End: 03-31-2024 Patient encounter procedure Ifeoma Davis MD Work Phone: [facility] Start: 03-17-2024 ambulatory Ifeoma Sampson Work Phone: Internal Medicine [facility] Start: 02-18-2024 End: 02-18-2024 Office outpatient visit 15 minutes Cynthia Ramos MD Work Phone: [facility] Comment on above: Secondary glaucoma, indeterminate stage, bilateral (Primary Dx); Pseudoxanthoma elasticum; Angioid streaks of macula; Pseudophakia of both eyes; Legally blind Start: 01-01-2024 Refill David Anna APRN, .CNP Work Phone: Internal Medicine [place] Comment on above: Refill Request Start: 12-25-2023 Telephone encounter David Anna APRN.ADMINISTRATIVE INTERN Work Phone: [facility] [place] Comment on above: Medication Request Start: 12-24-2023 End: 12-24-2023 Patient encounter procedure Destiney Kamaracalf MURTAZA.ADMINISTRATIVE INTERN Work Phone: OB/Gynecology Comment on above: Encounter for gyneco logical examination (general) (routine) without abnormal findings (Primary Dx); Encounter for screening for human papillomavirus (HPV); Pap smear for cervical cancer screening; Encounter for screening mammogram for breast cancer Start: 12-24-2023 End: 12-24-2023 Patient encounter status Destiney Pendleton MURTAZA.ADMINISTRATIVE INTERN Work Phone: [facility] Start: 12-04-2023 End: 12-04-[address] Ifoema Davis Work Phone: [facility] Work Phone: Start: 12-04-2023 End: 12-04-[address] Ifeoma Davis Work Phone: [facility] Work Phone: Start: 11-18-2023 End: 11-18-2023 Patient encounter procedure Adriana Vidal APRN.ADMINISTRATIVE INTERN Work Phone: [place] [facility] Comment on above: Bacterial sinusitis (Primary Dx) Start: 11-13-2023 Refill Ifeoma Sampson Work Phone: Internal Medicine [place] Comment on above: Refill Request Start: 11-06-2023 End: 11-06-[address] Ifeoma Davis Work Phone: [facility] Work Phone: Start: 10-25-2023 ambulatory Alessandra Lora MA [facility] Comment on above: Population Health Na vigation Outreach ([facility]) Start: 10-11-2023 Documentation procedure Mammog lien Coordinator [facility] Start: 10-11-2023 Letter encounter Mammography Coordinator [facility] Department Start: 10-10-2023 End: 10-10-2023 Subsequent hospital visit by physician Screen Mammo On License Of [facility] Mamm[facility] Comment on above: Encounter for screen ing mammogram for breast cancer [Z12.31] Start: 10-08-2023 Telephone encounter Ifeoma deluna MD Work Phone: [facility] [place] Comment on above: Patient Update Start: 10-04-2023 ambulatory Mary Salinas MA [facility] Comment on above: Population Health Na vigation Outreach ([facility] ) Start: 07-23-2023 Refill Virginia Avalos PA-C Work Phone: [facility] [place] Comment on above: Refill Request Start: 06-25-2023 Refill Ifeoma Sampson Work Phone: [address] [place] [address] Comment on above: Erroneous encounter- disregard Start: [...] Handicapped Placard Renewal Start: 05-03-2023 Refill Calli Anna APRN, .CNP Work Phone: Internal Medicine [place] Comment on above: Refill Request Start: 04-30-2023 End: 04-30-2023 Patient encounter procedure Cande Pozo PA-C Work Phone: [facility] [place] Comment on above: Gastroesophageal ref lux disease, unspecified whether esophagitis present (Primary Dx); Change in bowel habits Start: 04-25-2023 End: 04-25-2023 Patient encounter procedure Massimo Hicks MD Work Phone: Orthopaedics Comment on above: Numbness and tinglin g in right hand (Primary Dx) Start: 04-09-2023 Telephone encounter Ifeoma deluna MD Work Phone: Internal [facility] Comment on above: requesting lab order Start: 02-19-2023 End: 02-19-2023 Office outpatient visit 15 minutes Cynthia Ramos MD Work Phone: [facility] Comment on above: Secondary glaucoma, indeterminate stage, bilateral (Primary Dx); Pseudoxanthoma elasticum; Pseudophakia of both eyes Start: 01-27-2023 Refill David Anna APRN, .CNP [facility] Comment on above: Refill Request Start: 01-01-2023 End: 01-01-2023 ambulatory [facility] Work Phone: Start: 01-01-2023 End: 01-01-2023 Discharged Recurring [facility]-Occupational Therapy Start: 12-12-2022 Refill Ifeoma Sampson Work Phone: Internal [facility] Comment on above: Refill Request (SEE RX NOTES) Start: 12-04-2022 End: 12-04-2022 Postop follow up visit related to original px Cynthia Ramos MD Work Phone: [facility] Comment on above: Follow-up exam (Prim terra Dx); Vitreous prolapse of left eye Start: 11-22-2022 End: 11-22-2022 Postop follow up visit related to original px Cynthia Ramos MD Work Phone: [facility] Comment on above: Follow-up exam (Prim terra Dx) Start: 11-19-2022 End: 11-19-2022 Patient encounter procedure Taina Patino PA-C Work Phone: Orthopaedics Comment on above: Trigger ring finger of right hand (Primary Dx); Trigger middle finger of left hand Follow-up exam (Prim terra Dx) Start: 11-19-2022 Telephone encounter Henrik Chen MD Work Phone: [facility] Comment on above: Eye Problem Patient Question; Nu rse To Address Start: 11-16-2022 End: 11-16-2022 Patient encounter procedure Cynthia Ramos MD Work Phone: [facility] Comment on above: Follow-up exam (Prim terra Dx) Start: 11-13-2022 Telephone encounter Cynthia cheatham MD Work Phone: [facility] Comment on above: Appointment Start: 11-07-2022 End: 11-07-2022 ambulatory MASSIMO HICKS Facility:[facility] Start: 11-05-2022 Telephone encounter Massimo monterroso MD Work Phone: Orthopaedics Comment on above: Patient Question Start: 11-01-2022 Telephone encounter Massimo monterroso MD Work Phone: Orthopaedics Comment on above: Appointment (Siena ding regarding surgery) Start: 10-31-2022 End: 10-31-2022 ambulatory WOLF MASON Facility:[id number] Start: 10-31-2022 End: 10-31-2022 ambulatory Michelle Perez OT/L [facility] [place] Comment on above: Blindness right eye category 3, blindness left eye category 4 (Primary Dx); Complaints of difficulty with reading; Difficulty with household tasks; Impaired mobility and personal care; Personal care impairment Start: 10-29-2022 End: 10-29-2022 Patient encounter procedure [facility] [place] Work Phone: [facility] Comment on above: Nuclear sclerotic ca taract of left eye (Primary Dx) Start: 10-26-2022 Telephone encounter Cynthia cheatham MD Work Phone: [facility] Comment on above: Returning Patient's Call (ascan) Start: 10-23-2022 End: 10-23-2022 Subsequent hospital visit by physician [facility] Work Phone: Radiology Comment on above: Abnormal mammogram [ R92.8] Start: 10-17-2022 End: 10-17-2022 ambulatory WOLF MASON Facility:[id number] Start: 10-17-2022 End: 10-17-2022 ambulatory Michelle Perez OT/L [facility] [place] Comment on above: Difficulty with hous ehold tasks (Primary Dx); Blindness right eye category 3, blindness left eye category 4; Impaired mobility and personal care; Personal care impairment; Complaints of difficulty with reading Start: 10-16-2022 End: 10-16-2022 Patient encounter procedure Ifeoma Davis MD Work Phone: Internal Medicine [place] Comment on above: Gastroesophageal ref lux disease with esophagitis, unspecified whether hemorrhage (Primary Dx); Pre-operative clearance; Trigger finger, unspecified finger, unspecified laterality; Primary hypertension; Mixed hyperlipidemia; PAD (peripheral artery disease) ([facility]); PXE (pseudoxanthoma elasticum); Hot flashes Start: 10-16-2022 End: 10-16-2022 Preoperative state Ifeoma Davis MD Work Phone: Internal Medicine [place] Start: 10-09-2022 Telephone encounter Liliya medrano MD Work Phone: Mammography Comment on above: Mammogram Result Favio l Back Start: 10-09-2022 End: 10-09-2022 Subsequent hospital visit by physician Xr On License Of [facility] [place] Mob Work Phone: Radiology Start: 10-02-2022 Telephone encounter Ifeoma deluna MD Work Phone: Internal Medicine [place] Comment on above: Medication Request Start: 10-01-2022 End: 10-01-2022 Orders Only Massimo Hicks MD Work Phone: Orthopaedics Comment on above: Pain in both hands ( Primary Dx) Schedule Surgery Trigger ring finger of right hand (Primary Dx); Trigger middle finger of left hand Pain in both hands [ M79.641, M79.642] Start: 09-28-2022 Documentation procedure Mammog lien Coordinator [facility] Start: 09-28-2022 Letter encounter Mammography Coordinator [facility] Department Start: 09-28-2022 Telephone encounter Destiney davis BEAD CUTTER.ADMINISTRATIVE INTERN Work Phone: OB/Gynecology Comment on above: Orders Start: 09-27-2022 ambulatory Ifeoma Sampson Work Phone: Internal Medicine [place] Comment on above: Upcoming visit on Start: 09-27-2022 Patient encounter procedure Ifeoma Davis MD Work Phone: Internal Medicine [place] Start: 09-27-2022 End: 09-27-2022 Subsequent hospital visit by physician Screen Mammo On License Of [facility]amm[facility] Comment on above: Encounter for screen ing mammogram for breast cancer [Z12.31] Start: 09-25-2022 End: 09-25-2022 Patient encounter procedure Cynthia Ramos MD Work Phone: [facility] Comment on above: Nuclear senile catar act of left eye (Primary Dx); Primary open angle glaucoma (POAG) of left eye, severe stage Start: 09-19-2022 End: 09-19-2022 ambulatory WOLF MASON Facility:[id number] Start: 09-19-2022 Telephone encounter Wolf mclean OD Work Phone: [facility] Comment on above: Follow Up Phone Call Start: 09-19-2022 End: 09-19-2022 ambulatory Michelle Perez OT/L [facility] [place] Comment on above: Blindness right eye category 3, blindness left eye category 4 (Primary Dx); Difficulty with household tasks; Impaired mobility and personal care; Personal care impairment; Complaints of difficulty with reading Start: 08-16-2022 End: 08-16-2022 Patient encounter procedure Wolf Mason OD Work Phone: [facility] Comment on above: Blindness right eye [...] eye (Primary Dx) Start: 07-23-2022 Refill Destiney [place] BEAD CUTTER.ADMINISTRATIVE INTERN Work Phone: OB/Gynecology Comment on above: Refill Request Medication Problem ( flonase) Start: 07-04-2022 Telephone encounter Ifeoma deluna MD Work Phone: [facility] [place] Comment on above: Patient Update Start: 07-03-2022 End: 07-03-2022 Patient encounter procedure Jonathon Johnson MD Work Phone: Ophthalmology Comment on above: Pseudophakia, right eye (Primary Dx) Start: 06-29-2022 End: 06-29-2022 Patient encounter procedure Valentine Torres OD Work Phone: Ophthalmology Comment on above: Photopsia (Primary D x); Pseudophakia, right eye; Combined 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 cataract, left eye; Primary open angle glaucoma (POAG) of both eyes, indeterminate stage; Angioid streaks of macula Start: 06-28-2022 Telephone encounter Jonathon graves MD Work Phone: [facility] Comment on above: 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 Start: 06-26-2022 End: 06-26-2022 Patient encounter procedure Jonathon Johnson MD Work Phone: [facility] Comment on above: Pseudophakia (Primar y Dx) Start: 06-25-2022 ambulatory JONATHON JOHNSON Facility: [facility] Start: 06-25-2022 End: 06-25-2022 Subsequent hospital visit by physician Jonathon Johnson MD Work Phone: [facility] Comment on above: 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 [H25.811]Photopsia [H53.19] Start: 06-22-2022 Refill Jonathon Johnson MD Work Phone: [facility] Comment on above: Refill Request (Pre- op drops) Medication Problem Start: 06-20-2022 Telephone encounter Jonathon graves MD Work Phone: [facility] Comment on above: Appointment Start: 06-20-2022 End: 06-20-2022 Patient encounter procedure Charlene Grossman MD Work Phone: [facility] [place] Comment on above: PXE (pseudoxanthoma elasticum) (Primary Dx); Obesity, Class I, BMI 30-34.9 Start: 05-11-2022 Refill Ifeoma Sampson Work Phone: Family [facility] [place] Comment on above: Refill Request Patient Question (Re quest medication not on med list please) Start: 05-03-2022 End: 05-03-2022 Patient encounter procedure Massimo Hicks MD Work Phone: Orthopaedics Comment on above: Pain in both hands ( Primary Dx); Trigger middle finger of left hand; Trigger ring finger of right hand Start: 04-25-2022 Telephone encounter Jonathon graves MD Work Phone: [facility] Comment on above: Preparations For Sharath [...] encounter procedure Cynthia Ramos MD Work Phone: [facility] Comment on above: Primary open angle g laucoma (POAG) of both eyes, indeterminate stage (Primary Dx); Corneal dellen of left eye; Nuclear senile cataract of right eye Start: 03-20-2022 ambulatory Ifeoma Sampson Work Phone: Internal Medicine [facility] Start: 03-14-2022 End: 03-14-2022 Patient encounter procedure Jonathon Johnson MD Work Phone: Ophthalmology Comment on above: Photopsia (Primary D x); Primary open angle glaucoma (POAG) of both eyes, indeterminate stage; Combined form of age-related cataract, both eyes; Marginal corneal ulcer of left eye; Angioid streaks of macula Start: 03-02-2022 Telephone encounter Jonathon graves MD Work Phone: [facility] Comment on above: Lab & Test Results Start: 02-27-2022 End: 02-27-2022 Patient encounter procedure Jonathon Johnson MD Work Phone: [facility] Comment on above: Photopsia (Primary D x); Primary open angle glaucoma (POAG) of both eyes, indeterminate stage; Combined form of age-related cataract, both eyes; Marginal corneal ulcer of left eye Start: 02-10-2022 Telephone encounter Lowell Kelly APRN.ADMINISTRATIVE INTERN Work Phone: [facility] Comment on above: Results Start: 02-09-2022 Refill Ifeoma Sampson Work Phone: Internal Medicine [place] Comment on above: Refill Request Start: 02-07-2022 Telephone encounter Jonathon graves MD Work Phone: [facility] Comment on above: Medication Problem Start: 01-12-2022 Refill Destiney Pendleton APRN.CNP Work Phone: OB/Gynecology Comment on above: Refill Request Start: 12-25-2021 End: 12-25-2021 Patient encounter procedure Ifeoma Davis MD Work Phone: [facility] [place] Comment on above: PXE (pseudoxanthoma elasticum) (Primary Dx); Vertigo; Memory deficits; New daily persistent headache; Chronic mixed headache syndrome Start: 12-19-2021 End: 12-19-2021 Patient encounter procedure Cynthia Ramos MD Work Phone: [facility] Comment on above: Follow-up exam (Prim terra Dx); Photopsia; 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 Start: 12-07-2021 Telephone encounter Ifeoma deluna MD Work Phone: Internal [facility] [place] Comment on above: Patient Question Start: 12-04-2021 End: 12-04-2021 Patient encounter procedure Destiney Pendleton APRN.ADMINISTRATIVE INTERN Work Phone: OB/Gynecology Comment on above: Encounter for gyneco logical examination (general) (routine) without abnormal findings (Primary Dx); Encounter for screening mammogram for breast cancer Start: 12-04-2021 End: 12-04-2021 Patient encounter status Destiney Pendleton APRN.ADMINISTRATIVE INTERN Work Phone: OB/Gynecology Start: 11-28-2021 End: 11-28-2021 Patient encounter procedure Cynthia Ramos MD Work Phone: [facility] Comment on above: Follow-up exam (Prim [...] Work Phone: Start: 11-17-2024 Polysomnogram Michelle Becerril APRN.ADMINISTRATIVE INTERN Work Phone: Start: 10-31-2024 Urnls dip stick/tablet rgnt auto w/o microscopy [facility] Provider Start: 10-13-2024 Computerized ophthalmic imaging retina Cynthia Ramos MD Work Phone: Start: 10-12-2024 Adult depression screening assessment Michelle Becerril APRN.ADMINISTRATIVE INTERN Work Phone: Start: 03-27-2024 Lipid 1996 panel [...] uni real time with image limited Destiney [place] BEAD CUTTER.ADMINISTRATIVE INTERN Work Phone: Start: 10-23-2022 Digital breast tomosynthesis unilateral Destiney Helder BEAD CUTTER.ADMINISTRATIVE INTERN Work Phone: Start: 10-16-2022 Ecg routine ecg w/least 12 lds i&r only [facility] Provider Start: 10-15-2022 Lipid 1996 panel - Serum or Plasma Massimo Hicks MD Work Phone: Start: 10-09-2022 Radex shoulder complete minimum 2 views [facility] Provider Start: 10-01-2022 Radex hand minimum 3 views Massimo levin MD Work Phone: Start: 09-27-2022 End: 09-27-2022 Mammography Destiney Helder BEAD CUTTER.ADMINISTRATIVE INTERN Work Phone: Start: 06-29-2022 Computerized ophthalmic imaging [...] DTaP,Tdap,Td Vaccine (2 - Td or Tdap) [facility] Start: 03-27-2029 Lipid panel Lipid Screening [facility] Start: 12-23-2028 Screening for malignant neoplasm of cervix [facility] Start: 05-30-2028 Colonoscopy Colonoscopy [facility] Start: 05-30-2028 Colorectal Cancer Screening Colorectal Cancer Screening [facility] Start: 05-30-2028 Screening for malignant neoplasm of colon [facility] Start: 03-24-2028 Diabetes Screening Diabetes Screening [facility] Start: 11-20-2027 Diabetes Screening Diabetes Screening [facility] Start: 10-15-2027 Lipid 1996 panel - Serum or Plasma Lipid Screening [facility] Start: 10-15-2027 Lipid panel Lipid Screening [facility] Start: 10-15-2027 LIPID SCREEN LIPID SCREEN [facility] Start: 03-27-2027 Diabetes Screening Diabetes Screening [facility] Start: 08-15-2026 LIPID SCREEN LIPID SCREEN [facility] Start: 05-21-2026 Diabetes Screening Diabetes Screening [facility] Start: 05-04-2026 End: 10-11-2026 VISUAL FIELD 24-2 OU (BOTH EYES) VISUAL FIELD 24-2 OU (BOTH EYES) [facility] Imaging Routine Secondary glaucoma, indeterminate stage, bilateral Expected: 05/04/2026, Expires: 10/11/[address] [facility] Work Phone: Comment on above: Expected: 05/04/2026, Expires: Start: 04-22-2026 Annual PCP Team Chronic Disease Visit Annual PCP Team Chronic Disease Visit [facility] Start: 12-29-2025 Annual PCP Team Chronic Disease Visit Annual PCP Team Chronic Disease Visit [facility] Start: 12-29-2025 BP Controlled (<130/80) BP Controlled (<130/80) [facility] Start: 11-19-2025 Annual PCP Team Chronic Disease Visit Annual PCP Team Chronic Disease Visit [facility] Start: 11-19-2025 BP Controlled (<130/80) BP Controlled (<130/80) [facility] Start: 11-03-2025 Annual PCP Team Chronic Disease Visit Annual PCP Team Chronic Disease Visit [facility] Start: 11-03-2025 BP Controlled (<130/80) BP Controlled (<130/80) [facility] Start: 10-21-2025 Screening for malignant neoplasm of breast Mammogram Screening [facility] Start: 10-15-2025 DIABETES SCREEN DIABETES SCREEN [facility] Start: 10-12-2025 Annual PCP Team Chronic Disease Visit Annual PCP Team Chronic Disease Visit [facility] Start: 10-12-2025 Anxiety Screening Anxiety Screening [facility] Start: 10-12-2025 BP Controlled (<130/80) BP Controlled (<130/80) [facility] Start: 10-12-2025 Covid-19 Vaccine () Covid-19 Vaccine () [facility] Comment on above: Postponed from 05/03/2024 (Declined at t his time) Start: 10-12-2025 Depression Screening Depression Screening [facility] Start: 10-07-2025 Annual PCP Team Chronic Disease Visit Annual PCP Team Chronic Disease Visit [facility] Start: 10-07-2025 BP Controlled (<130/80) BP Controlled (<130/80) [facility] Start: 09-29-2025 Annual PCP Team Chronic Disease Visit Annual PCP Team Chronic Disease Visit [facility] Start: 09-15-2025 BP Controlled (<130/80) BP Controlled (<130/80) [facility] Start: 07-23-2025 End: 07-23-2025 Patient encounter procedure 07/23/2025 2:00 PM EST Office Visit [facility] [address] [place] [address] Ifeoma Davis MD [address] [place] [address] 3 month F/U [facility] Comment on above: 3 month F/U Start: 06-09-2025 End: 06-09-2025 Patient encounter procedure 06/09/2025 12:30 PM EDT Office Visit [facility] [address] [address] Adriana Talbert MD [address] [place] [address] [facility] [address] [address] 10 WEEK OUTCOME Ophthalmology Comment on above: 10 WEEK OUTCOME Start: 06-04-2025 Plain x-ray of pelvis and lower extremity HIP, UNI W/ Pelvis 2-3 Views [facility] Start: 06-04-2025 XR Pelvis and Hip Views [facility] Start: 05-27-2025 [facility] Start: 05-27-2025 End: 05-27-2025 Emergency department patient visit Departed Emergency -Emergency Department Work Phone: Start: 05-27-2025 End: 05-27-2025 Patient encounter procedure 05/27/2025 9:20 AM EDT Office Visit [place] [facility] [place] [address] [place] [address] Ifeoma Davis MD [address] [place] [address] Wellness [facility] Comment on above: Wellness Start: 05-18-2025 End: 05-18-2025 Patient encounter procedure 05/18/2025 11:00 AM EDT Office Visit [facility] [address] [place] [address] Cynthia Ramos MD [address] [place], [place] [id number] 4 week VaTa [facility] Comment on above: 4 week VaTa Start: 05-12-2025 End: 05-12-2025 Patient encounter procedure 05/12/2025 11:00 AM EDT Office Visit [facility] [address] [address] Adriana Talbert MD [address] [place] [id number] [facility] [address] [address] 6 WEEK OUTCOME Ophthalmology Comment on above: 6 WEEK OUTCOME Start: 05-03-2025 DIABETES SCREEN DIABETES SCREEN [facility] Start: 05-03-2025 Influenza vaccination [facility] Start: 04-28-2025 End: 04-28-2025 Patient encounter procedure 04/28/2025 11:00 AM EDT Office Visit [facility] Op[facility]mology [address] [address] Adriana Talbert MD [address] [address] Diagn[facility] [address] [address] 3 WEEK POST OP Ophthalmology Comment on above: 3 WEEK POST OP Start: 04-22-2025 End: 04-22-2025 Patient encounter procedure 04/22/2025 10:20 AM EDT Office Visit [facility] [place] [address] [place] [address] Ifeoma Davis MD [address] [place] [address] 3 month follow up [facility] [place] Comment on above: 3 month follow up Start: 04-20-2025 End: 04-20-2025 Patient encounter procedure 04/20/2025 9:30 AM EDT Office Visit [facility] [address] [place] [address] Cynthia Ramos MD [address] [place] [address] SP 6 months refraction HVF 24-2 large size V [facility] Comment on above: SP 6 months refraction HVF 24-2 large si ze V Start: 04-16-2025 X-ray of lumbosacral spine L/S Spine Bending Flex/Ext [facility] Start: 04-16-2025 XR Spine Lumbar and Sacrum Views [facility] Start: 04-12-2025 Subsequent hospital visit by physician 04/12/2025 Hospital Encounter Ophthalmology [address] [place] [id number] Janet Martinez MD [address] [place] [address] 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, T81.31XA] Ophthalmology Comment on above: Leaking of conjunctival drainage bleb [H 59.89, T81.31XA] Start: 04-11-2025 BP Controlled (<130/80) BP Controlled (<130/80) [facility] Start: 04-06-2025 End: 04-06-2025 Patient encounter procedure 04/06/2025 2:15 PM EDT Office Visit [facility] Op[facility]mology [address] [address] Janet Martinez MD [address] [place] [address] Diagn[facility] [address] [address] Michelle 04/06 for follow up Ophthalmology Comment on above: Michelle 04/06 for follow up Start: 04-02-2025 End: 04-02-2025 Patient encounter procedure Ophthalmology Comment on above: 1 WEEK POST OP Start: 03-31-2025 Annual PCP Team Chronic Disease Visit Annual PCP Team Chronic Disease Visit [facility] Start: 03-31-2025 BP Controlled (<130/80) BP Controlled (<130/80) [facility] Start: 03-30-2025 End: 03-30-2025 Patient encounter procedure 03/30/2025 2:00 PM EDT Office Visit [facility] [address] [place] [address] Ifeoma Davis MD [address] [place] [address] 3 month follow up [facility] Comment on above: 3 month follow up Start: 03-26-2025 End: 03-26-2025 Patient encounter procedure 03/26/2025 8:15 AM EDT Office Visit [facility] [address] [address] Adriana Talbert MD [address] [place] [address] 1 DAY POST OP bleb leak repair OS Ophthalmology Comment on above: 1 DAY POST OP bleb leak repair OS Start: 03-25-2025 End: 03-25-2025 Admission to same day surgery center 03/25/2025 12:01 PM EDT - 03/25/2025 12:59 PM EDT Surgery Ophthalmology [address] [address] Adriana Talbert MD [address] [place] [address] 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 Ophthalmology Comment on above: REV OR 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 WOUND EYE ANTERI OR SEGMENT MAJOR Start: 03-25-2025 End: 03-25-2025 Anesthesia consultation 03/25/2025 12:01 PM EDT Anesthesia Event Ophthalmology [address] [address] Marquita Aj [facility] Ophthal[facility] Start: 03-25-2025 Subsequent hospital visit by physician 03/25/2025 12:01 PM EDT Hospital Encounter Ophthalmology [address] [place] [address] Adriana Talbert MD [address] [place] [address] 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, T81.31XA] Ophthalmology Comment on above: Leaking of conjunctival drainage bleb [H 59.89, T81.31XA] Start: 03-25-2025 End: 03-25-2025 Revj/rpr oprative wound anterior segment [facility] Start: 03-24-2025 End: 03-24-2025 Patient encounter procedure Neurology Comment on above: 31-90 day follow up Start: 03-16-2025 End: 06-15-2025 Lipid 1996 panel - Serum or Plasma LIPID PANEL, FASTING Lab Routine Mixed hyperlipidemia Expected: 03/16/2025, Expires: 06/15/[address] [facility] Work Phone: Comment on above: Expected: 03/16/2025, Expires: Start: 03-10-2025 X-ray of lumbar spine, two or three views Lumbar Spine 2 or 3 Views [facility] Start: 03-10-2025 XR Lumbar spine 2 or 3 Views [facility] Start: 03-02-2025 End: 03-02-2025 Nursing evaluation of patient and report 03/02/2025 12:45 PM EDT Nurse Visit [facility] [place] [address] [place] [address] Nurse, Nh [address] [place] [address] Tdap [facility] [place] Comment on above: Tdap Start: 03-01-2025 Influenza vaccination Influenza Vaccine (#1) [facility] Lar[facility]asso Comment on above: Postponed from 05/03/2024 (Declined at t his time) Start: 12-29-2024 End: 12-29-2024 Patient encounter procedure 12/29/2024 3:00 PM EDT Office Visit Internal Medicine [place] [address] [facility] [place], [place] [address] Ifeoma Davis MD [address] [place] [address] 6 week follow up [facility] Comment on above: 6 week follow up Start: 11-27-2024 End: 02-26-2025 Basic metabolic 2000 panel - Serum or Plasma BASIC METABOLIC PANEL Lab Routine Hypokalemia Expected: 11/27/2024 (Approximate), Expires: 02/26/[address] [facility] Work Phone: Comment on above: Expected: 11/27/2024 (Approximate), Expi res: 02/26/2025 Start: 11-19-2024 End: 02-18-2025 Basic metabolic 2000 panel - Serum or Plasma [facility] Work Phone: Comment on above: Expected: 11/19/2024, Expires: Start: 11-19-2024 End: 11-19-2024 Patient encounter procedure 11/19/2024 1:00 PM EDT Office Visit [facility] Medicine [place] [address] [place] [address] David Anna APRN.ADMINISTRATIVE INTERN [address] [place], [place] [id number] 2 wk follow up [facility] Comment on above: 2 wk follow up Start: 11-17-2024 End: 11-17-2024 Patient encounter procedure 11/17/2024 9:00 PM EDT Office Visit [facility] [address] [place] [address] Snoring [R06.83]; Excessive daytime sleepiness [G47.19]; Non-restorative sleep [G47.8]; PLMD (periodic limb movement disorder) [G47.61]; Primary hypertension [I10] [facility] Comment on above: Snoring [R06.83]; Excessive daytime slee piness [G47.19]; Non-restorative sleep [G47.8]; PLMD (periodic limb movement disorder) [G47.61]; Primary hypertension [I10] Start: 11-17-2024 BP Controlled (<130/80) BP Controlled (<130/80) [facility] Start: 11-03-2024 End: 02-02-2025 25-hydroxyvitamin D3 [Mass/volume] in Serum or Plasma [facility] Comment on above: Expected: 11/03/2024, Expires: Start: 11-03-2024 End: 02-02-2025 Cobalamin (Vitamin B12) [Mass/volume] in Serum or Plasma [facility] Comment on above: Expected: 11/03/2024, Expires: Start: 11-03-2024 End: 02-02-2025 Ferritin [Mass/volume] in Serum or Plasma [facility] Comment on above: Expected: 11/03/2024, Expires: Start: 11-03-2024 End: 02-02-2025 Iron and Iron binding capacity panel - Serum or Plasma [facility] Work Phone: Comment on above: Expected: 11/03/2024, Expires: Start: 11-03-2024 End: 11-03-2024 Patient encounter procedure 11/03/2024 2:00 PM EST Office Visit [facility] [place] [address] [place], [place] [id number] Ifeoma Davis MD [address] [place] [address] 1 month follow up [facility] Comment on above: 1 month follow up Start: 11-03-2024 End: 02-02-2025 Thyrotropin [Units/volume] in Serum or Plasma [facility] Comment on above: Expected: 11/03/2024, Expires: Start: 11-03-2024 End: 02-02-2025 Thyroxine (T4) free [Mass/volume] in Serum or Plasma [facility] Comment on above: Expected: 11/03/2024, Expires: Start: 10-13-2024 End: 10-13-2024 Patient encounter procedure 10/13/2024 10:15 AM EST Office Visit [facility] [address] [place] [address] Cynthia Ramos MD [address] [place], [place] [id number] SP 6 months VaTa and mac OCT [facility] Comment on above: SP 6 months VaTa and mac OCT Start: 10-12-2024 End: 10-12-2024 Patient encounter procedure 10/12/2024 3:00 PM EST Office Visit Internal Medicine [place] [address] [place] [address] Ifeoma Davis MD [address] [place], [place] [address] follow up increase memory loss. decline in adls/ gait [facility] [place] Comment on above: follow up increase memory loss. decline in adls/ gait Start: 10-10-2024 Screening for malignant neoplasm of breast Mammogram Screening [facility] Start: 10-07-2024 End: 10-07-2024 Patient encounter procedure 10/07/2024 2:00 PM EST Office Visit Neurology [address] [place], [place] [address] Michelle Becerril APRN.ADMINISTRATIVE INTERN [address] [place] [address] DAYSI (obstructive sleep apnea) [G47.33] Neurology Comment on above: DAYSI (obstructive sleep apnea) [G47.33] Start: 09-29-2024 End: 09-29-2024 Patient encounter procedure [facility] [place] Comment on above: 6 mo follow up; routine 6 mo follow up; rout ine - HTN focus [place] Start: 09-27-2024 Annual PCP Team Chronic Disease Visit Annual PCP Team Chronic Disease Visit [facility] Start: 09-24-2024 End: 09-24-2024 Patient encounter procedure 09/24/2024 3:00 PM EST Office Visit Neurology [address] [place], [place] [id number] Michelle Becerril APRN.ADMINISTRATIVE INTERN [address] [place] [address] F/U Neurology Comment on above: F/U Start: 09-02-2024 Medicare Advantage Annual Wellness Visit Medicare Advantage Annual Wellness Visit [facility] Start: 08-18-2024 End: 08-18-2024 Patient encounter procedure 08/18/2024 12:45 PM EST Office Visit [facility] [address] [place] [address] Cynthia Ramos MD [address] [place] [address] SP 6 months VaTa and mac OCT [facility] Comment on above: SP 6 months VaTa and mac OCT Start: 08-15-2024 DIABETES SCREEN DIABETES SCREEN [facility] Start: 08-13-2024 End: 08-13-2024 Patient encounter procedure 08/13/2024 1:00 PM EST Office Visit Neurology [address] [place] [address] Michelle Becerril APRN.ADMINISTRATIVE INTERN [address] [place] [address] DAYSI (obstructive sleep apnea) [G47.33] Neurology Comment on above: DAYSI (obstructive sleep apnea) [G47.33] Start: 07-23-2024 End: 07-23-2024 Patient encounter procedure 07/23/2024 11:20 AM EST Office Visit Orthopaedics [address] [place] [address] Massimo Hicks MD [address] [place] [address] rt wrist discuss surgery Orthopaedics Comment on above: rt wrist discuss surgery Start: 06-29-2024 HPV TESTING HPV TESTING [facility] Start: 06-29-2024 PAP TESTING PAP TESTING [facility] Start: 06-29-2024 Screening for malignant neoplasm of cervix [facility] Start: 06-22-2024 Colonoscopy COLONOSCOPY [facility] Start: 06-22-2024 COLORECTAL CANCER SCREENING COLORECTAL CANCER SCREENING [facility] Start: 06-18-2024 End: 06-18-2024 Patient encounter procedure 06/18/2024 12:50 PM EDT Appointment Mammogram [address] [place] [address] Encounter for screening mammogram for malignant neoplasm of breast [Z12.31] Mammogram Comment on above: Encounter for screening mammogram for ma lignant neoplasm of breast [Z12.31] Start: 06-04-2024 End: 06-04-2024 Patient encounter procedure 06/04/2024 12:30 PM EDT Office Visit Vasculary Surgery [address] [place] [address] 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] Vasculary Surgery Comment on above: 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] Start: 05-21-2024 Annual PCP Team Chronic Disease Visit Annual PCP Team Chronic Disease Visit [facility] Start: 05-21-2024 BP Controlled (<130/80) BP Controlled (<130/80) [facility] Start: 05-03-2024 Covid-19 Vaccine ( season) Covid-19 Vaccine ( season) [facility] Start: 05-03-2024 Covid-19 Vaccine ( season) Covid-19 Vaccine ( season) [facility] Start: 05-03-2024 Influenza vaccination [facility] Start: 04-30-2024 BP CONTROLLED (<130/80) BP CONTROLLED (<130/80) [facility] Start: 03-31-2024 End: 06-30-2024 Hepatitis C virus Ab [Presence] in Serum [facility] Work Phone: Comment on above: Expected: 03/31/2024, Expires: Start: 03-31-2024 End: 06-30-2024 HIV 1+2 Ab [Presence] in Serum or Plasma by Immunoassay [facility] Comment on above: Expected: 03/31/2024, Expires: Start: 03-31-2024 End: 03-31-2024 Patient encounter procedure [facility] [place] Comment on above: physical physical - AWV due Start: 03-17-2024 End: 06-16-2024 Basic metabolic 2000 panel - Serum or Plasma BASIC METABOLIC PANEL Lab Routine Hypertension Expected: 03/17/2024, Expires: 06/16/[address] [facility] Work Phone: Comment on above: Expected: 03/17/2024, Expires: Start: 03-17-2024 End: 06-16-2024 CBC panel - Blood by Automated count COMPLETE BLOOD COUNT Lab Routine Medication management Expected: 03/17/2024, Expires: 06/16/2024 [facility] Comment on above: Expected: 03/17/2024, Expires: Start: 03-17-2024 End: 06-16-2024 Lipid 1996 panel - Serum or Plasma LIPID PANEL BASIC Lab Routine Mixed hyperlipidemia Expected: 03/17/2024, Expires: 06/16/2024 [facility] Comment on above: Expected: 03/17/2024, Expires: Start: 02-18-2024 End: 02-18-2024 Patient encounter procedure 02/18/2024 12:30 PM EDT Office Visit [facility] [address] [place] [address] Cynthia Ramos MD [address] [place], [place] [id number] 6m follow up [facility] Comment on above: 6m follow up Start: 12-11-2023 BP CONTROLLED (<130/80) BP CONTROLLED (<130/80) [facility] Start: 10-16-2023 ANNUAL PCP TEAM CHRONIC DISEASE VISIT ANNUAL PCP TEAM CHRONIC DISEASE VISIT [facility] Start: 10-16-2023 BP CONTROLLED (<130/80) BP CONTROLLED (<130/80) [facility] Start: 09-27-2023 Mammography [facility] Start: 09-27-2023 Screening for malignant neoplasm of breast Mammogram Screening [facility] Start: 09-02-2023 Behavioral Health Screening Behavioral Health Screening [facility] Start: 09-02-2023 Depression Assessment Depression Assessment [facility] Start: 06-25-2023 BP CONTROLLED (<130/80) BP CONTROLLED (<130/80) [facility] Start: 06-20-2023 BP CONTROLLED (<130/80) BP CONTROLLED (<130/80) [facility] Start: 06-04-2023 ANNUAL PCP TEAM CHRONIC DISEASE VISIT ANNUAL PCP TEAM CHRONIC DISEASE VISIT [facility] Start: 05-03-2023 Covid-19 Vaccine () Covid-19 Vaccine () [facility] Start: 05-03-2023 Influenza vaccination [facility] Start: 02-09-2023 BP CONTROLLED (<130/80) BP CONTROLLED (<130/80) [facility] Start: 12-25-2022 ANNUAL PCP TEAM CHRONIC DISEASE VISIT ANNUAL PCP TEAM CHRONIC DISEASE VISIT [facility] Start: 12-04-2022 BP CONTROLLED (<130/80) BP CONTROLLED (<130/80) [facility] Start: 10-23-2022 ANNUAL PCP TEAM CHRONIC DISEASE VISIT ANNUAL PCP TEAM CHRONIC DISEASE VISIT [facility] Start: 10-16-2022 End: 12-16-2022 Follitropin [Units/volume] in Serum or Plasma FSH BLD Lab Routine Hot flashes Expected: 10/16/2022, Expires: 12/16/[address] [facility] Work Phone: Comment on above: Expected: 10/16/2022, Expires: 3 Start: 09-27-2022 End: 11-27-2022 CBC W Auto Differential panel - Blood CBC + DIFF Lab Routine Annual physical exam Expected: 09/27/2022, Expires: 11/27/[address] [facility] Work Phone: Comment on above: Expected: 09/27/2022, Expires: 3 Start: 09-27-2022 End: 11-27-2022 Comprehensive metabolic 2000 panel - Serum or Plasma COMP METABOLIC PANEL Lab Routine Annual physical exam Expected: 09/27/2022, Expires: 11/27/[address] [facility] Work Phone: Comment on above: Expected: 09/27/2022, Expires: 3 Start: 09-27-2022 End: 11-27-2022 Lipid 1996 panel - Serum or Plasma LIPID PANEL BASIC Lab Routine Annual physical exam Expected: 09/27/2022, Expires: 11/27/[address] [facility] Work Phone: Comment on above: Expected: 09/27/2022, Expires: 3 Start: 09-27-2022 End: 11-27-2022 Thyrotropin [Units/volume] in Serum or Plasma TSH BLD Lab Routine Annual physical exam Expected: 09/27/2022, Expires: 11/27/[address] [facility] Work Phone: Comment on above: Expected: 09/27/2022, Expires: 3 Start: 09-02-2022 DEPRESSION ASSESSMENT DEPRESSION ASSESSMENT [facility] Start: 08-21-2022 Mammography MAMMOGRAM [facility] Start: 06-27-2022 End: 06-20-2023 Echocardiography ECHO Cardiology Routine PXE (pseudoxanthoma elasticum) Expected: 06/27/2022, Expires: 06/20/[address] [facility] Work Phone: Comment on above: Expected: 06/27/2022, Expires: 3 Start: 05-03-2022 Influenza vaccination [facility] Start: 03-20-2022 End: 05-20-2022 CBC panel - Blood by Automated count CBC Lab Routine Medication management Expected: 03/20/2022, Expires: 05/20/[address] [facility] Work Phone: Comment on above: Expected: 03/20/2022, Expires: 2 Start: 03-20-2022 End: 05-20-2022 Hemoglobin A1c in Blood HGB A1C Lab Routine Medication management Expected: 03/20/2022, Expires: 05/20/[address] [facility] Work Phone: Comment on above: Expected: 03/20/2022, Expires: 2 Start: 03-20-2022 End: 05-20-2022 SCHEDULE LAB TESTING SCHEDULE LAB TESTING Lab Routine Expected: 03/20/2022, Expires: 05/20/[address] [facility] Work Phone: Comment on above: Expected: 03/20/2022, Expires: 2 Start: 02-27-2022 End: 04-29-2022 Herpes simplex virus+Varicella zoster virus DNA [Presence] in Unspecified specimen by SUKUMAR with probe detection HSV 1,2/VZV AMP MOLECULAR DETECT Lab Routine Marginal corneal ulcer of left eye Expected: 02/27/2022, Expires: 04/29/[address] [facility] Work Phone: Comment on above: Expected: 02/27/2022, Expires: 2 Start: 02-27-2022 End: 04-29-2022 Nuclear Ab [Presence] in Serum by Immunoassay OLGA PANEL BLOOD SCRN Lab Routine Marginal corneal ulcer of left eye Expected: 02/27/2022, Expires: 04/29/[address] [facility] Work Phone: Comment on above: Expected: 02/27/2022, Expires: 2 Start: 09-02-2021 DEPRESSION ASSESSMENT DEPRESSION ASSESSMENT [facility] Start: 07-28-2019 Adult depression screening assessment DEPRESSION SCREENING [facility] Start: 2019 Pneumococcal Vaccine: 50+ (1 of 1 - PCV) Pneumococcal Vaccine: 50+ (1 of 1 - PCV) [facility] Start: 2019 SHINGRIX VACCINE (1 of 2) SHINGRIX VACCINE (1 of 2) [facility] Start: 2014 COLOGUARD (FIT-DNA) COLOGUARD (FIT-DNA) [facility] Start: [address] COLONOGRAPHY [facility] Start: 2014 FECAL OCCULT BLOOD FECAL OCCULT BLOOD [facility] Start: 2014 Screening for malignant neoplasm of colon [facility] Start: 2014 SIGMOIDOSCOPY SIGMOIDOSCOPY [facility] Start: 1988 Hepatitis B Vaccine (1 of 3 - 19+ 3-dose series) Hepatitis B Vaccine (1 of 3 - 19+ 3-dose series) [facility] Start: 1988 SHINGRIX VACCINE (1 of 2) SHINGRIX VACCINE (1 of 2) [facility] Start: 1988 Urine microalbumin profile [facility] Start: 1987 Anxiety Screening Anxiety Screening [facility] Start: 1987 BP CONTROLLED (<130/80) BP CONTROLLED (<130/80) [facility] Start: 1987 Depression Screening Depression Screening [facility] Start: 1987 HEPATITIS C SCREENING HEPATITIS C SCREENING [facility] Start: 1987 Hepatitis C screening Hepatitis C Screening [facility] Start: 1987 HIV SCREENING HIV SCREENING [facility] Start: 1987 HIV screening HIV Screening [facility] Start: 1981 COVID-19 VACCINE (1) COVID-19 VACCINE (1) [facility] Start: 1975 PNEUMOCOCCAL (1 - PCV) PNEUMOCOCCAL (1 - PCV) [facility] Start: 1974 COVID-19 VACCINE (#1) COVID-19 VACCINE (#1) [facility] Start: 1969 COVID-19 VACCINE (#1) COVID-19 VACCINE (#1) [facility] Start: 1969 HEPATITIS B (1 of 3 - 3-dose series) HEPATITIS B (1 of 3 - 3-dose series) [facility] Start: 1969 Hepatitis B Vaccine (1 of 3 - 3-dose series) Hepatitis B Vaccine (1 of 3 - 3-dose series) [facility] Bacteria identified in Urine by Culture BACTERIAL CULTURE, URINE Microbiology Routine Dysuria Ordered: 10/31/[address] [facility] Work Phone: Comment on above: Ordered: 10/31/2024 End: 04-30-2024 COLONOSCOPY DIAGNOSTIC COLONOSCOPY DIAGNOSTIC Endoscopy Routine Change in bowel habits 1 Occurrences starting 04/30/2023 until 04/30/[address] [facility] Work Phone: Comment on above: 1 Occurrences starting 04/30/2023 until 04/30/2024 CORNEAL TOPOGRAPHY A TLAS OU (BOTH EYES) CORNEAL TOPOGRAPHY ATLAS OU (BOTH EYES) OPHT Imaging Routine Nuclear sclerotic cataract of left eye 10/29/2022 1:13 PM EST [facility] Work Phone: CORNEAL TOPOGRAPHY PENTACAM OU (BOTH EYES) CORNEAL TOPOGRAPHY PENTACAM OU (BOTH EYES) OPHT Imaging Routine Nuclear sclerotic cataract of left eye 10/29/2022 1:12 PM EST [facility] Work Phone: COVID & INFLUENZA A/ B & RSV PCR, ROUTINE COVID & INFLUENZA A/B & RSV PCR, ROUTINE Microbiology Routine Close exposure to COVID-19 virus Ordered: 07/08/[address] [facility] Work Phone: Comment on above: Ordered: 07/08/2024 End: 07-12-2025 DBT Breast - bilateral screening GENOVEVA SCREENING W LILLY Radiology Routine Encounter for screening mammogram for malignant neoplasm of breast 1 Occurrences starting 06/12/2024 until 07/12/[address] [facility] Work Phone: Comment on above: 1 Occurrences starting 06/12/2024 until 07/12/2025 End: 10-28-2023 Diagnostic mammography computer-aided detcj uni GENOVEVA DIAGNOSTIC RT Radiology Routine Abnormal mammogram 1 Occurrences starting 09/28/2022 until 10/28/[address] [facility] Work Phone: Comment on above: 1 Occurrences starting 09/28/2022 until 10/28/2023 ECG B/O W INTERP (ME D OFFICE) ECG B/O W INTERP (MED OFFICE) ECG Routine PXE (pseudoxanthoma elasticum) Ordered: 06/20/[address] [facility] Work Phone: Comment on above: Ordered: 06/20/2022 End: 10-16-2023 ECG COMPLETE ECG COMPLETE ECG Routine Gastroesophageal reflux disease with esophagitis, unspecified whether hemorrhage 1 Occurrences starting 10/16/2022 until 10/16/[address] [facility] Work Phone: Comment on above: 1 Occurrences starting 10/16/2022 until 10/16/2023 ECG COMPLETE ECG COMPLETE ECG 10/16/2022 2:04 PM EST [facility] End: 04-30-2024 EGD DIAGNOSTIC EGD DIAGNOSTIC Endoscopy Routine Gastroesophageal reflux disease, unspecified whether esophagitis present 1 Occurrences starting 04/30/2023 until 04/30/[address] [facility] Work Phone: Comment on above: 1 Occurrences starting 04/30/2023 until 04/30/2024 EMG(NEURO/NI) EMG(NEURO/NI) EM G Routine Pain in both hands Ordered: 05/03/[address] [facility] Work Phone: Comment on above: Ordered: 05/03/2022 End: 04-25-2024 EMG(NEURO/NI) EMG(NEURO/NI) EMG Routine Numbness and tingling in right hand 1 Occurrences starting 04/25/2023 until 04/25/[address] [facility] Work Phone: Comment on above: 1 Occurrences starting 04/25/2023 until 04/25/2024 MG Breast Screening GENOVEVA SCREENIN G Radiology Routine Encounter for screening mammogram for breast cancer 10/10/2023 1:07 PM EST [facility] Work Phone: End: 01-22-2025 MG Breast Screening GENOVEVA SCREENING Radiology Routine Encounter for gynecological examination (general) (routine) without abnormal findings Encounter for screening mammogram for breast cancer 1 Occurrences starting 12/24/2023 until 01/22/[address] [facility] Work Phone: Comment on above: 1 Occurrences starting 12/24/2023 until 01/22/2025 MG Breast Screening GENOVEVA SCREENIN G Radiology Routine Encounter for gynecological examination (general) (routine) without abnormal findings Encounter for screening mammogram for breast cancer 10/21/2024 2:30 PM EST [facility] Work Phone: MR Lumbar spine [facility] End: 01-24-2023 Mri brain brain stem w/o w/contrast material MRI BRAIN WO/W IVCON Radiology Routine 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) Vertigo Memory deficits New daily persistent headache 1 Occurrences starting 12/25/2021 until 01/24/[address] [facility] Work Phone: Comment on above: 1 Occurrences starting 12/25/2021 until 01/24/2023 Oph bmtry prtl coher intrfrmtry io lens pwr favio 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 W/ IOL CALC OPHT Imaging Routine Combined 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 cataract of both eyes Ordered: 04/03/[address] [facility] Work Phone: Comment on above: Ordered: 04/03/2022 OT PLAN OF CARE CERTIFICATION OT PLAN OF CARE CERTIFICATION Procedures Routine Difficulty with household tasks Impaired mobility and personal care Personal care impairment Complaints of difficulty with reading Blindness right eye category 3, blindness left eye category 4 Ordered: 09/19/[address] [facility] Comment on above: Ordered: 09/19/2022 PAP TEST PAP TEST Lab Rou ronnell Encounter for gynecological examination (general) (routine) without abnormal findings Encounter for screening for human papillomavirus (HPV) Pap smear for cervical cancer screening 12/24/2023 1:43 PM EDT [facility] Patient Education ED Concussion [facility] Work Phone: End: 07-09-2025 Polysomnogram POLYSOMNOGRAM (PSG) Procedures Routine DAYSI (obstructive sleep apnea) 1 Occurrences starting 07/09/2024 until 07/09/[address] [facility] Work Phone: Comment on above: 1 Occurrences starting 07/09/2024 until 07/09/2025 End: 10-08-2025 Polysomnogram POLYSOMNOGRAM (PSG) Procedures Routine Snoring Excessive daytime sleepiness Non-restorative sleep PLMD (periodic limb movement disorder) Primary hypertension 1 Occurrences starting 10/08/2024 until 10/08/[address] [facility] Work Phone: Comment on above: 1 Occurrences starting 10/08/2024 until 10/08/2025 End: 07-28-2023 Radiologic exam chest 2 views XR CHEST 2V FRONTAL/LAT Radiology Routine Acute cough 1 Occurrences starting 06/28/2022 until 07/28/[address] 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 Work Phone: Comment on above: 1 Occurrences starting 12/04/2021 until 01/03/2023 Tdap vaccine 7 yrs/> im TDAP VAC CINE, AGE 7+ YR (ADACEL, BOOSTRIX) Immunization/Injection Routine Need for vaccination Ordered: 03/01/[address] [facility] Work Phone: Comment on above: Ordered: 03/01/2025 End: 10-28-2023 Us breast uni real time with image limited US BREAST LTD RT Radiology Routine Abnormal mammogram 1 Occurrences starting 09/28/2022 until 10/28/[address] [facility] Work Phone: Comment on above: 1 Occurrences starting 09/28/2022 until 10/28/2023 End: 10-31-2023 XR HAND GENERAL 3V PA/LAT/OBL BILATERAL XR HAND GENERAL 3V PA/LAT/OBL BILATERAL Radiology Routine Pain in both hands 1 Occurrences starting 10/01/2022 until 10/31/[address] [facility] Work Phone: Comment on above: 1 Occurrences starting 10/01/2022 until 10/31/2023 XR HAND GENERAL 3V PA/LAT/OBL BILATERAL XR HAND GENERAL 3V PA/LAT/OBL BILATERAL Radiology Routine Pain in both hands 10/01/2022 2:14 PM EST [facility] Work Phone: XR Spine Lumbar and Sacrum Views [facility] CASANDRA JONES [facility] KAREN [facility] Immunizations Immunization Date Immunization Notes Care Provider Adwoa matthews 03-02-2025 tetanus toxoid, redu leona diphtheria toxoid, and acellular pertussis vaccine, adsorbed Mi Nurse Work Phone: [facility] 02-25-2025 diphtheria, tetanus toxoids and acellular pertussis vaccine, unspecified formulation Ifeoma Davis MD Work Phone: [facility] Payers Date Payer Category Payer Self-pay [id number] 2021 Medicaid [id number] 2021 Medicaid [id number] 2020 Medicaid [id number] 2019 Medicare (Managed Care) [place] O [id number] 2017 Unknown [place] AND BLUE SHIELD ANTHUMU MEDIBLUE O [id number] 2017-Present [phone] [address] [place] [address] [facility] [id number] 2017 Unknown [id number]. [id number] 2017 Unknown [id number] 2014 Unknown [id number] Unknown [id number] 2.16.840.1.664015.3.579.2. 462 Unknown [id number] 2.16.840.1.826083.3.579.2. 462 Unknown [id number] 2.16.840.1.788516.3.579.2. 462 Unknown [id number] 2.16.840.1.323966.3.579.2. 462 Unknown [id number] 2.16.840.1.572219.3.579.2. 462 Unknown [id number] 2.16.840.1.502776.3.579.2. 462 Unknown [id number] 2.16.840.1.746676.3.579.2. 462 Unknown [id number] 2.16.840.1.115522.3.579.2. 462 Unknown [id number] 2.16.840.1.436904.3.579.2. 462 Unknown [id number] 2.16.840.1.251894.3.579.2. 462 Unknown [id number] 2.16.840.1.915659.3.579.2. 462 Unknown [id number] 2.16.840.1.108529.3.579.2. 462 Unknown [id number] 2.16.840.1.203573.3.579.2. 462 Unknown [id number] 2.16.840.1.089852.3.579.2. 462 Unknown [id number] 2.16.840.1.024745.3.579.2. 462 Unknown [id number] 2.16.840.1.376429.3.579.2. 462 Unknown [id number] 2.16.840.1.564443.3.579.2. 462 Unknown [id number] 2.16.840.1.888251.3.579.2. 462 Social History Date Type Detail Facility Start: 12-09-2014 End: 05-27-2025 Tobacco smoking status NHIS Never smoked tobacco [facility] Work Phone: Start: 11-28-2021 End: 04-22-2025 Alcohol intake Current non-drinker of alcohol (finding) [facility] Start: 11-21-2020 History SDOH Social Connections Phone 5 [facility] Start: 11-21-2020 History SDOH Social Connections Hindu 3 [facility] Start: 11-21-2020 History SDOH Social Connections Membership 1 [facility] Start: 11-21-2020 History SDOH Physica l Activity DPW 7 [facility] Start: 11-21-2020 History SDOH Physica l Activity MPS 2 [facility] Start: 1970 Sex Assigned At Not on file [facility] Start: 12-15-2021 End: 06-25-2022 Exposure to SARS-CoV-2 (event) Not sure [facility] Work Phone: Start: 12-09-2014 End: 03-24-2025 Tobacco use and exposure Smokeless tobacco non-user [facility] Start: 1970 Sex Assigned At Female C [facility] Start: 11-20-2021 End: 11-06-2023 Tobacco smoking status NHIS Unknown if ever smoked [facility] Start: 11-21-2020 End: 12-24-2023 History of Social function [facility] Work Phone: Start: 11-21-2020 End: 12-24-2023 Social connection and isolation panel [facility] Work Phone: Do you belong to any clubs or organizations such as gnosticism groups, unions, fraternal or athletic groups, or school groups? Yes [facility] Work Phone: Are you now , , , , never or living with a partner? [facility] Work Phone: Start: 08-03-2012 Adult Depression Screening Assessment 0 [facility] Work Phone: Do you feel stress - tense, restless, nervous, or anxious, or unable to sleep at night because your mind is troubled all the time - these days [OSQ] Only a little [facility] Work Phone: Start: 09-18-2022 Gender identity Identifies as female gender (finding) [facility] Start: 09-18-2022 Sexual orientation Heterosexual (fin ding) [facility] Start: 11-30-2024 Sex Female (finding) [facility] NEGATED: Highlighted rowStart: DECLANF History of tobacco use Passive smoker [facility] Medical Equipment Procedure Code Equipment Code Equipment Origin al Text Equipment Identifier Dates Lens Acrysof Ultrasert +14.5 Diopter Acrylic Iol 1 Piece Foldable Uv Blue - [id number] Start: 06-25-2022 Lens Acrysof Ultrasert +15.5 Diopter Acrylic Iol 1 Piece Foldable Uv Blue - [id number] Start: 11-15-2022 Functional Status Date Assessment Result Facility 12-14-2014 Are you deaf, or do you have serious difficulty hearing No 12/14/2014 10:27 AM Celeste Bass LPN No [facility] 12-14-2014 Are you blind, or do you have serious difficulty seeing, even when wearing glasses Yes 12/14/2014 10:27 AM Celeste Bass LPN Yes [facility] 12-14-2014 Do you have serious difficulty walking or climbing stairs No 12/14/2014 10:27 AM Celeste Bass LPN No [facility] 12-14-2014 Do you have difficul ty dressing or bathing No 12/14/2014 10:27 AM Celeste Bass LPN No [facility] 12-14-2014 Because of a physica l, mental, or emotional condition, do you have difficulty doing errands alone such as visiting a physician's office or shopping No 12/14/2014 10:27 AM EDT Celeste Gomez LPN No [facility] Mental Status Date Assessment Result Facility 12-14-2014 Because of a physica l, mental, or emotional condition, do you have serious difficulty concentrating, remembering, or making decisions No 12/14/2014 10:27 AM EDT Celeste Gomez LPN No [facility] Clinical Notes 11-28-2021 to 05-28-2025 Note Date & Type Note Facility 05-28-2025 Note HNO ID: [id number] Author: MARY SHULTZ LPCC Service: ? Author Type: Counselor Type: Progress Notes Filed: 05/28/2025 10:24 Note Text: Behavioral Health Social Work Progress Note Patient identified for [facility] from: PCP Reason for referral: Resources Behavioral Health Resources: Psychology - talk therapy [facility] encounter type: Chart Review Attempts to Outreach: 1 attempt Referral made: Psychology - Internal Psychology-Internal referral type: Therapy Final Disposition: Resources given Patient Discharged?: Yes [facility] consult received for talk therapy resources. PCP provided appropriate resources to patient in after visit summary. Orders have been sent for sleep medicine and general psychology. SW will be available should further needs arise; please place an additional consult. ASHLI Duran-S May 28, 2025 [facility] 05-27-2025 Discharge summary [facility] 05-27-2025 Discharge summary Note Date/Time May 27, 2025 7:14pm [facility] Medical Records Department [address] [place] [address] Emergency Department Summary 05/27/25 MR#: [id number] Acct: [id number] Name: ALLIE RUTLEDGE Rep #:[id number] : 1970 55 From: Juan Manuel Turpin [...] Prior similar symptoms: No Recent Illness/Hospitalization: No PFSH PFS Medical History Hip arthritis Degenerative scoliosis Lumbar [...] QDAY 12/09/24 Unkn own History omega-3 720 sp-lix-vup-fish cap PO 12/09/24 Unknown Hi story oil-vit [...] mg-325 0.5 - 1 tab PO TID TX N pain 03/10/25 Unknown History mg tablet [...] motor deficits and no sensory deficits noted Kristofer Coma Scale: document GCS findings Spontaneous Obeys [...] narrative: Patient has a concussion. Per the Barry CT head rule and [place] rule imaging is not indicated. Patient was [...] mg tablet 200 mg PO QDAY vitamin X26-czdqs acid 500-400 mcg tablet 1 tab PO QDAY Rx Instructions: administer with a meal ro-6-jsn-epa-fish oil-vit D3 720 mg- 25 mcg capsule [...] Internal Medicine] - As Needed Print Language: Ecuadorean Disposition Disposition: Home, Self Care What to do if you have Problems For any increased pain, shortness of breath, bleeding, nausea or vomiting, chestpain, or any unexpected problems, contact your Primary Care Provider. Call [facility] ([phone]) or report to the closest Emergency Room. Call 911 if necessary. 05/27/251913 <Electronically signed by Juan Manuel Turpin MD> Cosigner Signature (if applicable): CC: Dr. Ifeoma Davis MD ~ Signed [facility] Work Phone: [phone]) 427-874009-25-2025 NoteHNO ID: [id number] Author: IFEOMA DAVIS MD Service: ? Author [...] decision maker and/or advance care plan documented Germán Charles is the HCPOA Measurements BP 107/71 [...] multiple eye surgeries, including a recent emergency th eye surgery, and experiences photophobia post-cataract surgery. [...] advance directives and a healthcare power of traffic law attorney, designated to her oldest son, Melvin Nassar. SOCIAL HISTORY[1] Past medical history, appointments, medications, allergies reviewed. Pertinent Lab/Diagnostic Studies are reviewed and discussed today Current Outpat (more content not included)...[facility] 05-17-2025 Telephone encounter Note* Telephone Encounter - Satish Hunter - 05/17/2025 4:44 PM EDT Images from the original note were not included. Fax received from [facility] dated 05/15/25, regarding New Rx Fax placed on provider desk for review/signature. [facility]09-15-2025 Miscellaneous Notes* Telephone Encounter - Satish Hunter - 05/17/2025 4:44 PM EDT Images from the original note were not included. Fax received from [facility] dated 05/15/25, regarding New Rx Fax placed on provider desk for review/signature. documented in this [facility] Telephone encounter Note * Telephone Encounter - Mallory Morrison RN - 04/29/2025 8:26 AM EDT Call placed to patient and notified of below with verbalized understanding. Mallory Morrison RN [facility]08-28-2025 Miscellaneous Notes* Telephone Encounter - Mallory Morrison [...] advise, Mallory Morrison RN documented in this encounterLouis [facility]-2025 Telephone encounter Note * Telephone Encounter - Ifeoma Davis MD - 04/28/2025 5:22 PM EDT Filed the medication as requested [facility]08-27-2025 Telephone encounter Note* Telephone Encounter - Spring Peñaloza RN - 04/28/2025 4:42 PM EDT Pt called in to see if provider had called in a steroid for her. I let her know that the provider had not gotten to the message as of yet. Please call and advise. Spring Peñaloza RN [facility]08-27-2025 Telephone encounter Note* Telephone Encounter - Mallory [...] Please review and advise, Mallory Morrison RN [facility]08-21-2025 Telephone encounter Note* Telephone Encounter - Jackie Freitas MA - 04/22/2025 3:41 PM EDT The following approved medication requests have been transmitted electronically. Requested Prescriptions Signed Prescriptions Disp Refills fluconazole (DIFLUCAN) 150 mg tablet 10 tablet 0 Sig: Take 1 tablet by mouth once daily for 10 days. Authorizing Provider: IFEOMA DAVIS MA [facility]08-21-2025 Miscellaneous Notes* Telephone Encounter - Jackie Freitas [...] Brennan RN - 04/22/2025 11:31 AM EDT [facility] Sade Javier called for clarification on Fluconazole 150 mg instructions: 1 tab daily for 10 days (repeat in 3 days if needed) # 10. Please clarify and let Liliana Javier know. documented in this encounterLouis Stokes [facility]08-[facility]25 Telephone encounter Note * Telephone Encounter - Ifeoma Davis MD - 04/22/2025 3:35 PM EDT I sent new rx. RegardsIfeoma MD [facility]08-[facility] Telephone encounter Note* Telephone Encounter - Clint Brennan RN - 04/22/2025 11:31 AM EDT [facility] Sade Javier called for clarification on Fluconazole 150 mg instructions: 1 tab daily for 10 days (repeat in 3 days if needed) # 10. Please clarify and let Liliana Javier know. [facility]08-21-2025 Instructions* Patient Instructions* Ifeoma Davis MD - 04/22/2025 11:30 AM EDT We discussed your eye condition and recent surgery: - You reported ongoing issues with fluid leakage and discomfort following your eye surgery. The fluid leakage has improved, and your eye pressure is now stable. Continue following up with your information systems specialist as scheduled. - You mentioned a [...] not improve. - Follow up with your information systems specialist as scheduled. - Attend your MRI appointment on May 07 for your hip. - Let me know if you would like to proceed with an ENT referral for the Inspire device. Please contact the office if you have any questions or concerns. documented in this encounterLouis Stokes Cleveland Va [facility] Center08-21-2025 NoteHNO ID: [id number] Author: IFEOMA DAVIS MD Service: ? Author Type: Physician Type: Progress Notes Filed: 04/22/2025 12:54 Note Text: Reason for Visit Follow up MARIETTA Rutledge is a 54-year-old female with a history of glaucoma, scoliosis, and sleep apnea, presenting for evaluation of recent eye surgery complications, intertrigo, and poison boo exposure. She is accompanied by a friend, who is providing additional history. Allie recently underwent eye surgery at the [facility] due to a significant decrease [...] also mentions a recent dental visit at [facility], where she discussed treatment options for her teeth, including bonding, Invisalign, and a crown. She expresses frustration with the cost of the proposed treatments and requests a more affordable plan. SOCIAL HISTORY[1] Past medical history, appointments, medications, allergies reviewed. Pertinent Lab/Diagnostic Studies are reviewed and discussed today Current Outpatient Medications: azithromycin (ZITHROMAX Z-SRINIVAS) 250 mg tablet guaiFENesin (MUCINEX) 600 mg [...] drooping, (+) eyelid pruritus, (more content not included)...[facility]08-21-2025 History of Present illness Narrative* Ifeoma [...] Allie recently underwent eye surgery at the [facility] due to a significant decrease [...] also mentions a recent dental visit at [facility], where she discussed treatment options for her teeth, including bonding, Invisalign, and a crown. She expresses frustration with the cost of the proposed treatments and requests a more affordable plan. SOCIAL HISTORY[1] Past medical history, appointments, medications, allergies reviewed. Pertinent Lab/Diagnostic Studies are reviewed and discussed today Current Outpatient Medications: azithromycin (ZITHROMAX Z-SRINIVAS) 250 mg tablet guaiFENesin (MUCINEX) 600 mg [...] any unintended typographical errors. Recording using ambient [employer] software for draft documentation of the visit was discussed with the patient/authorized key account representative; all questions welcomed and answered. Patient/authorized key account representative agreed to proceed Ifeoma Davis MD [1] Social History Tobacco Use Smoking status: Never Passive exposure: Never Smokeless tobacco: Never Vaping Use Vaping status: Never Used Substance Use Topics Alcohol use: No Drug use: No documented in this encounterLouis Stokes Cleveland [facility] Center08-19-2025 NoteHNO ID: [id number] Author: CYNTHIA RAMOS MD Service: ? 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 I have seen and examined this patient. I have discussed the case and the management of this patient's care with the Resident/Fellow/Production Support Developer, if applicable. I also have reviewed and agree with the assessment and plan as stated above and agree with all of its relevant components. 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 I have seen and examined this patient. I have discussed the case and the management of this patient's care with the Resident/Fellow/Production Support Developer, if applicable. I also have reviewed and agree with the assessment and plan as stated above and agree with all of its relevant components. Cynthia Ramos MD April 20, 2025 11:06 AM documented in this encounterLouis Stokes Cleveland [facility] Center08-19-2025 Instructions* Patient Instructions* Cynthia Ramos MD - [...] weeks total after surgery documented in this encounterLouis Stokes Cleveland [facility] Center08-10-2025 NoteHNO ID: [id number] Author: AISLINN MCMULLEN PA-C Service: ? Author Type: Physician Sap Manager Type: Progress Notes Filed: 04/11/2025 13:41 Note Text: [facility] NOTE Ifeoma Davis MD [address] [facility] [address] Allie Rutledge is a 54-year-old female with [...] the care of multiple specialists at the [facility]. She also has a history [...] Dr. Cynthia Ramos M.D. [place] [address] SOCIAL HISTORY[3] Physical Exam: BP 110/62 Pulse [...] agrees with the treatment plan. Recording using [employer] software for draft documentation of the visit was discussed with the patient/authorized key account representative; all questions welcomed and answered. Patient/authorized key account representative agreed to proceed. TRINH Perez, JAZZMINE MDM [1] Current Outpatient Medications Medication Sig prednisoLONE acetate (PRED FORTE) 1 % ophthalmic suspension Use 1 drop in the left eye four times daily. traZODone (DESYREL (more content not included)...[facility] 04-11-2025 History of Present illness Narrative* Aislinn Mcmullen PA-C - 04/11/2025 1:39 PM EDT Images from the original note were not included. [facility] NOTE Ifeoma Davis MD [address] [facility] [address] Allie Rutledge is a 54-year-old female with [...] the care of multiple specialists at [facility]. She also has a history [...] Dr. Cynthia Ramos M.D. [place] [address] SOCIAL HISTORY[3] Physical Exam: BP 110/62 Pulse [...] agrees with the treatment plan. Recording using [employer] software for draft documentation of the visit was discussed with the patient/authorized key account representative; all questions welcomed and answered. Patient/authorized key account representative agreed to proceed. Aislinn Mcmullen MPAS, PA-C MDM [1] Current Outpatient Medications Medication [...] tablet by mouth once daily. azithromycin (ZITHROMAX Z-SRINIVAS) 250 mg tablet 2 tablets by mouth [...] No Drug use: No documented in this encounterLouis Stokes [facility]08-10-2025 Instructions* Patient Instructions* Aislinn Mcmullen PA-C - [...] please contact our office. documented in this encounterLouis [facility]08-02-2025 Telephone encounter Note * Telephone Encounter - [...] concerns and asked them to call back [phone] at any time when available to discuss further. Reynaldo Alford MD Ophthalmology Resident [facility] Work Phone: 1(340) 491-721008-02-2025 Miscellaneous Notes* Telephone Encounter - Reynaldo Alford [...] concerns and asked them to call back [phone] at any time when available to discuss further. Reynaldo Alford MD Ophthalmology Resident documented in this encounterLouis Stokes [facility]08-01-2025 History of Present illness Narrative* Adriana Talbert [...] 03/29/2025 1:29 PM EDT documented in this encounterLouis Stokes Cleveland [facility] Center08-01-2025 NoteHNO ID: [id number] Author: ADRIANA TALBERT MD Service: ? Author [...] and agree with all of its relevant components.[facility]07-30-2025 Telephone encounter Note* Telephone Encounter - Gely Plascencia - 03/31/2025 2:22 PM EDT patient called, she lost her White Cap eye medication, requesting a new script [facility] Work Phone: [phone] Miscellaneous Notes* Telephone Encounter - Gely Plascencia - 03/31/2025 2:22 PM EDT patient called, she lost her White Cap eye medication, requesting a new script documented in this encounterLouis Stokes Cleveland [facility] Center07-30-2025 Telephone encounter Note * Telephone Encounter - Ifeoma Davis MD - 03/31/2025 12:59 PM EDT Ordered as requested Regards, Ifeoma Davis MD [facility]07-30-2025 Miscellaneous Notes* Telephone Encounter - Ifeoma Davis [...] advise, Mallory Morrison RN documented in this encounterLouis Stokes Cleveland [facility] Center07-30-2025 Telephone encounter Note * Telephone Encounter - Gely Plascencia - 03/31/2025 12:12 PM EDT I contacted the patient and left a voicemail informing her that you will be seeing her instead of the other physician. Just a heads-up. [facility] Work Phone: 1(169) 325-684107-30-2025 Miscellaneous Notes* Telephone Encounter - Gely Plascencia [...] EDT YES. I can see her in [place] tomorrow (Sat) if she wants. Otherwise she has an appt Saturday with Dr. Ayala. I am on site and happy to come over if needed. * Telephone Encounter - Gely Plascencia - 03/30/2025 2:46 PM EDT The patient reports experiencing tearing from the left eye approximately four to five times daily. Is this considered normal? [phone] sx: 03/25/2025 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 [[id number]] - Eye - Left documented in this encounterLouis Stokes Cleveland [facility] Center07-30-2025 Telephone encounter Note * Telephone Encounter - Adriana Talbert MD - 03/31/2025 12:03 PM EDT I moved her back to my Saturday clinic schedule - I will see her Saturday instead of Dr. Ayala [facility]07-30-2025 Telephone encounter Note* Telephone Encounter - Mallory [...] Please review and advise, Mallory Morrison RN [facility]07-30-2025 Telephone encounter Note* Telephone Encounter - Gely Plascencia - 03/31/2025 8:17 AM EDT The patient has requested that you visit on Saturday to examine her eye. [facility]07-29-2025 Telephone encounter Note* Telephone Encounter - Adriana Talbert MD - 03/30/2025 5:23 PM EDT YES. I can see her in [place] tomorrow (Sat) if she wants. Otherwise she has an appt Saturday with Dr. Ayala. I am on site and happy to come over if needed. [facility]07-29-2025 Telephone encounter Note* Telephone Encounter - Gely Plascencia - 03/30/2025 2:46 PM EDT The patient reports experiencing tearing from the left eye approximately four to five times daily. Is this considered normal? [phone] sx: 03/25/2025 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 [[id number]] - Eye - Left [facility]07-28-2025 NoteHNO ID: [id number] Author: ADRIANA TALBERT MD Service: ? Author Type: Physician Type: Progress Notes Filed: 04/02/2025 10:40 Note Text:[facility]07-25-2025 Note* Addendum Note - Brittaney Mckeon MD - 03/26/2025 8:50 PM EDTAddended by: BRITTANEY MCKEON on: 03/26/2025 08:50 PM Modules accepted: Orders [facility]07-25-2025 Miscellaneous Notes* Addendum Note - Brittaney Mckeon [...] The eye clinic can be reached at [phone] and you can ask to speak to the adoption services manager montessori preschool teacher. Brittaney Mckeon MD Ophthalmology Resident, [facility] documented in this encounterLouis Stokes Cleveland [facility] Center07-25-2025 Telephone encounter Note * Telephone Encounter - [...] The eye clinic can be reached at [phone] and you can ask to speak to the adoption services manager montessori preschool teacher. Brittaney Mckeon MD Ophthalmology Resident, [facility]07-23-2025 History and physical note* Emily Chaparro, BEAD CUTTER.ADMINISTRATIVE INTERN - 03/24/2025 3:02 PM EDT Images from the original note were not included. [facility] HISTORY AND PHYSICAL EXAMINATION SERVICE DATE: 03/24/2025 SERVICE TIME: 9:13 AM PRIMARY CARE PHYSICIAN: Ifoema Davis MD Assessment Patient has the following [...] Assessment: c/w statin PAD (peripheral artery disease) (HCC) Assessment: 20-39% bilateral carotid artery stenosis per [...] large neck Non-male patient STOP-Bang Score: 3 [id number] Score: Age: <65 Sex: female CHF history: No Hypertension history: Yes Stroke/TIA/thromboembolism history: No Vascular disease history: Yes Diabetes history: No [id number] Score: 3 ARISCAT Score: Age: 51-80 Preoperative [...] visit for bleb leak OS Sent by [facility] doctor for bleb leak OS X [...] +BPPV. No history of TIA's, stroke, SUPERVISOR PROCESS TESTING tumor, impaired sensorium, hemiplegia, paraplegia or quadraplegia. [...] pain, CHF, congenital heart defect, DVT/PE, recent GA, PTCA, open heart surgery and valve surgery. GI: Negative for: abdominal pain, dysphagia, GERD, hepatitis, irritable bowel syndrome, inflammatory bowel disease, liver disease, nausea, pancreatitis, vomiting and ETOH >2 drinks/day. : No history of dysuria, frequency or incontinence, stones or chronic kidney disease. No difficulty urinating, nocturia > 1 time per night or hematuria. BUFFET MANAGER: Negative for abnormal vaginal bleeding, abnormal vaginal [...] Dr. Cynthia Ramos M.D. [place] [address] FAMILY HISTORY Problem Relation Age of Onset Heart Father Age 61 Ovarian cancer Maternal Grandmother Heart Maternal Grandfather Cancer Paternal Grandmother Breast Heart Son [place] Cancer Maternal Aunt 55 ovarian cancer Glaucoma [...] 8760 hours). Recent Results (from the past 73634 hours) ECHO Collection Time: 07/09/22 3:24 PM [...] 24, 2025 TIME: 3:02 PM PAGER/CONTACT #: [facility]07-23-2025 History and physical note* Emily Chaparro APRN.CNP [...] Assessment: c/w statin PAD (peripheral artery disease) (HCC) Assessment: 20-39% bilateral carotid artery stenosis per [...] large neck Non-male patient STOP-Bang Score: 3 [id number] Score: Age: <65 Sex: female CHF history: No Hypertension history: Yes Stroke/TIA/thromboembolism history: No Vascular disease history: Yes Diabetes history: No [id number] Score: 3 ARISCAT Score: Age: 51-80 Preoperative [...] visit for bleb leak OS Sent by [facility] doctor for bleb leak OS X [...] +BPPV. No history of TIA's, stroke, SUPERVISOR PROCESS TESTING tumor, impaired sensorium, hemiplegia, paraplegia or quadraplegia. [...] pain, CHF, congenital heart defect, DVT/PE, recent GA, PTCA, open heart surgery and valve surgery. GI: Negative for: abdominal pain, dysphagia, GERD, hepatitis, irritable bowel syndrome, inflammatory bowel disease, liver disease, nausea, pancreatitis, vomiting and ETOH >2 drinks/day. : No history of dysuria, frequency or incontinence, stones or chronic kidney disease. No difficulty urinating, nocturia > 1 time per night or hematuria. BUFFET MANAGER: Negative for abnormal vaginal bleeding, abnormal vaginal [...] Dr. Cynthia Ramos M.D. [place] [address] FAMILY HISTORY Problem Relation Age of Onset Heart Father Age 61 Ovarian cancer Maternal Grandmother Heart Maternal Grandfather Cancer Paternal Grandmother Breast Heart Son [place] Cancer Maternal Aunt 55 ovarian cancer Glaucoma [...] 8760 hours). Recent Results (from the past 46154 hours) ECHO Collection Time: 07/09/22 3:24 PM [...] 3:02 PM PAGER/CONTACT #: documented in this encounterLouis Stokes Cleveland [facility] Center07-23-2025 Instructions* Patient Instructions* Emily Chaparro APRN.ADMINISTRATIVE INTERN - 03/24/2025 3:02 PM EDT Images from the original note were not included. [facility] PATIENT PREOPERATIVE INSTRUCTIONS No ref. provider found has scheduled you for your procedure at this surgery center: [facility]: [phone] --[facility] [place], [address], [place] [address]. Please read below carefully for your personalized [...] office. If you are currently using a [id number] injectable or oral medication for diabetes or [...] Procedures: - YOU MUST HAVE A RESPONSIBLE BALLPOINT PEN ASSEMBLY MACHINE OPERATOR TAKE YOU HOME. A MOBILE HOME TECHNICIAN OR PARTY PLAN SALES HOST/HOSTESS CANNOT BE MADE A RESPONSIBLE BALLPOINT PEN ASSEMBLY MACHINE OPERATOR. - We recommend that a responsible person [...] Advance Directive, please fax a copy to [phone] or email to for it to be [...] into your chart that day. Emily Chaparro APRN.ADMINISTRATIVE INTERN documented in this encounterLouis Stokes Cleveland [facility]07-23-2025 Telephone encounter Note * Telephone Encounter - [...] but called back today as documented below. [facility] Work Phone: [phone]) 392-878707-23-2025 Miscellaneous Notes* Telephone Encounter - Adriana Talbert [...] 03/24/2025 9:40 AM EDT Allie Rutledge CCF# [id number] Patient calling w/update BCL Contact not working Leaking fluid still, face is wet and sticky Janet Martinez MD filed at 03/23/2025 3:55 PM Status: Signed Urgent visit for bleb leak OS Sent by [facility] doctor for bleb leak OS X [...] 04/06 will revise 04/12 documented in this encounterLouis Stokes Cleveland [facility]07-23-2025 Telephone encounter Note * Telephone Encounter - Jackelin Fields - 03/24/2025 9:40 AM EDT Allie Rutledge CCF# [id number] Patient calling w/update BCL Contact not working Leaking fluid still, face is wet and sticky Janet Martinez MD filed at 03/23/2025 3:55 PM Status: Signed Urgent visit for bleb leak OS Sent by [facility] doctor for bleb leak OS X [...] if still leaking 04/06 will revise 04/12 [facility] Work Phone: 1(863) 113-357407-22-2025 NoteDate of Procedure 03/23/2025. Insurance Underwriter Sales Information Car Jockey: TOO. Notes Bleb leak [id number] NoteDate of Procedure 03/23/2025. Insurance Underwriter Sales Information Car Jockey: TOO. 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 Notes No choroidals Document baseline disc [id number] NoteDate of Procedure 03/23/2025. Insurance Underwriter Sales Information Car Jockey: TOO. Quality Right Eye Good. Left Eye Good. NFL Interpretation Right Eye Superior loss, Inferior loss. Left Eye Normal.[id number] NoteTable formatting from the original result was not included. Date of Procedure 03/23/2025. Notes Ophthalmology Exam Pachymetry (03/23/2025, 03/23/25) Right Left Thickness 543, 540 540,530 Edited by: Saranya Buchanan OA [id number] Instructions* Patient Instructions* Shyanne Parmar MD - 03/23/2025 3:07 PM EDT Please take timolol (yellow top) twice a day in the left eye And moxifloxacin (mora top) four times a day in the left eye documented in this encounterLouis Stokes Cleveland [facility] Medical Center07-22-2025 NoteHNO ID: [id number] Author: JANET MARTINEZ MD Service: ? Author Type: Physician Type: Progress Notes Filed: 03/23/2025 15:55 Note Text: Urgent visit for bleb leak OS Sent by [facility] doctor for bleb leak OS X [...] of its relevant components. Janet Martinez MD 03/23/2025[facility]07-22-2025 History of Present illness Narrative* Janet Martinez MD - 03/23/2025 2:24 PM EDT Urgent visit for bleb leak OS Sent by [facility] doctor for bleb leak OS X [...] Janet Martinez MD 03/23/2025 documented in this encounterLouis Stokes Cleveland [facility] Center07-22-2025 Telephone encounter Note * Telephone Encounter - Barbie Alicea - 03/23/2025 10:46 AM EDT Appointment scheduled with at 12:30. Patient advised to arrive on empty stomach. States she did have a granola bar and took medications around 9 am. *documentation is in secure chat* Barbie Alicea March 23, 2025 10:48 AM [facility]07-22-2025 Miscellaneous Notes* Telephone Encounter - Barbie Alicea [...] 07. Maybe its better to go to [facility] to be cared for Left message for patient to call the office to obtain the above information. Barbie Alicea reaching out to [facility] scheduling to find the availability [...] Chat regarding conversation: Received chart notes from [facility] Ankur Curtis MD. Patient has loose [...] 23, 2025 9:54 AM documented in this encounterLouis Stokes Cleveland Va [facility] Center07-22-2025 Telephone encounter Note * Telephone Encounter - Janet Rivero RN - 03/23/2025 9:55 AM EDT Response from Dr. Ramos: yes I can see her sooner but this needs urgent revision and I'm leaving for [place] tomorrow morninguntil April 07. Maybe its better to go to [facility] to be cared for Left message for patient to call the office to obtain the above information. Barbie Alicea reaching out to [facility] scheduling to find the availability of a cardiac exercise specialist to take over patient care with Dr. Ramos going [place] the [place]. Janet Rivero RN March 23, 2025 10:00 AM [facility]07-22-2025 Telephone encounter Note* Telephone Encounter - Janet Rivero RN - 03/23/2025 9:50 AM EDT Spoke with patient. Sent the following message to Dr. Ramos in a Urgent Secure Chat regarding conversation: Received chart notes from [facility] Ankur Curtis MD. Patient has loose [...] Rivero RN March 23, 2025 9:54 AM [facility]07-15-2025 NotePatient Outreach (INTMMN) AAMIRALLIE ([id number]) 1970 F [place] Date Time Provider Department 03/16/25 IFEOMA DAVIS INTMMN During your visit today, we recorded the [...] [E78.2] Order(s):LIPID PANEL, FASTING [SQLIPB] Order #: [id number] FUTURE Prescriptions as of 03/19/2025 - meloxicam [...] once daily. 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] 04/15/2017 [...] of left eye,*11/15/2022 12/29/2022 Encounter Status:Closed by [facility], (more content not included)...[facility]07-09-2025 Evaluation note* Diagnosis Onset Date Resolution Status Admit Date 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 acute March 10, 2025 2 :26pm Greater trochanteric bursiti s of left hip acute March 10, 2025 2 :26pm Lumbar spondylosis acute March 102024 2:26pm [facility] [employer] Work Phone: 1(617) 525-787507-09-2025 Evaluation note* Diagnosis Onset Date Resolution Status [...] 2:23pm Spondylolisthesis acute April 16, 2025 2:23pm [employer] Work Phone: [phone] [id number] Evaluation note* Diagnosis Onset Date Resolution Status [...] arthritis acute June 3:14pm Lumbar radiculopathy acute 2024 3:14pm Spondylolisthesis acute June 03, 2025 3:14pm [employer] Work Phone: [phone]) 104-359207-09-2025 Evaluation note* Diagnosis Onset Date Resolution Status [...] acute June 3:14pm Lumbar radiculopathy acute Octo ivone 2024 3:14pm Spondylolisthesis acute June 03, 2025 3:14pm 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 acute June 04 10:59am [employer] Work Phone: [phone]) [phone] Telephone encounter Note* Telephone Encounter - YESI NIX - 03/01/2025 7:55 AM EDT Patient scheduled for nurse visit 03/02/25 to receive TDAP vaccine. Please place order at this time. Yesi Nix LPN [facility]06-30-2025 Miscellaneous Notes* Telephone Encounter - YESI NIX - 03/01/2025 7:55 AM EDT Patient scheduled for nurse visit 03/02/25 to receive TDAP vaccine. Please place order at this time. Yesi Nix LPN documented in this encounterLouis Stokes Cleveland [facility] Center06-26-2025 Telephone encounter Note * Telephone Encounter - Spring Peñaloza RN - 02/25/2025 1:26 PM EDT Pt called in and was asking if she was up to date on her TDAP vaccine, because she is going to visit her new grand baby. Please place the order for the vaccine as she will be coming in to get this with [place] nurse on 03/03/25. Spring Peñaloza RN [facility]06-26-2025 Miscellaneous Notes* Telephone Encounter - Spring Peñaloza RN - 02/25/2025 1:26 PM EDT Pt called in and was asking if she was up to date on her TDAP vaccine, because she is going to visit her new grand baby. Please place the order for the vaccine as she will be coming in to get this with [place] nurse on 03/03/25. Spring Peñaloza RN documented in this encounterLouis Stokes Cleveland [facility]05-14-2025 Telephone encounter Note * Telephone Encounter - Janet Meza LPN - 01/13/2025 10:27 AM EDT Called and updated patient, patient will call back with alternate supplier Janet Meza LPN January 13, 2025 10:28 AM [facility]05-14-2025 Miscellaneous Notes* Telephone Encounter - Janet Meza LPN - 01/13/2025 10:27 AM EDT Called and updated patient, patient will call back with alternate supplier Janet Meza LPN January 13, 2025 10:28 AM * Telephone Encounter - Allie Mcknight LPN - 01/13/2025 9:12 AM EDT Roman from [facility] calling said they do not carry that [...] States she spoke with her insurance company [employer] and they state for PCP to write a new order and send to DME company. Order pended for provider review. Please fax order to [facility]. Please call patient with an update. Angelica Arreola RN documented in this encounterLouis Stokes Cleveland [facility] Center05-14-2025 Telephone encounter Note * Telephone Encounter - Allie Mcknight LPN - 01/13/2025 9:12 AM EDT Roman from [facility] said they do not carry that item requested. [facility]05-14-2025 Telephone encounter Note* Telephone Encounter - Janet Meza LPN - 01/13/2025 8:10 AM EDT Faxed order to [facility] per patient request Janet Meza LPN January 13, 2025 8:10 AM [facility]05-13-2025 Telephone encounter Note* Telephone Encounter - Angelica Arreola RN - 01/12/2025 10:38 AM EDT Patient reports she has lost her blindness cane. States she spoke with her insurance company [employer] and they state for PCP to write a new order and send to [employer] company. Order pended for provider review. Please fax order to [facility]. Please call patient with an update. Angelica Arreola RN [facility]05-13-2025 Telephone encounter Note* Telephone Encounter - Shabbir Berkowitz LPN - 01/12/2025 8:32 AM EDT CPAP supply order faxed. Shabbir Berkowitz LPN [facility]05-13-2025 Miscellaneous Notes* Telephone Encounter - Shabbir Berkowitz LPN - 01/12/2025 8:32 AM EDT CPAP supply order faxed. Shabbir Berkowitz LPN documented in this encounterLouis Stokes Cleveland [facility] Center04-30-2025 Telephone encounter Note * Telephone [...] she is legally blind and doesn't drive. [facility]04-30-2025 Miscellaneous Notes* Telephone Encounter - [...] results and sent her CPAP orders to [facility] in [place]. They should be reaching out to her [...] 30, 2024 8:39 AM documented in this encounterLouis Stokes Cleveland [facility] Center04-30-2025 Telephone encounter Note * Telephone Encounter - Letty Morales LPN - 12/30/2024 11:26 AM EDT TC to pt with no answer, left VM to return call. Please confirm if she is referring to her sleep study. I called patient on December 17 with the results and sent her CPAP orders to [facility] in [place]. They should be reaching out to her to set up machine. Letty Morales LPN [facility]04-30-2025 Telephone encounter Note* Telephone Encounter - Eve Tracey - 12/30/2024 8:38 AM EDT Patient calling in to let Michelle Becerril know her results from her CPAP are now in her chart. She is asking if she had the chance to review them. Please review and advise patient. Eve Tracey December 30, 2024 8:39 AM [facility]04-29-2025 NoteHNO ID: [id number] Author: IFEOMA DAVIS MD Service: ? 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 She [...] Plan 1. 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 She [...] any unintended typographical errors. Recording using ambient [employer] software for draft documentation of the visit was discussed with the patient/authorized key account representative; all questions welcomed and answered. Patient/authorized key account representative agreed to proceed Ifeoma Davis MD documented in this encounterLouis Stokes Cleveland [facility] Center04-23-2025 Telephone encounter Note * Telephone [...] is changing pharmacies from mail order to [facility] so needs a new rx sent Sharifa Amaral RN December 23, 2024 12:45 PM [facility]04-23-2025 Miscellaneous Notes* Telephone Encounter - [...] is changing pharmacies from mail order to [facility] so needs a new rx sent Sharifa Amaral RN December 23, 2024 12:45 PM documented in this encounterLouis Stokes Cleveland [facility] Center04-17-2025 Telephone encounter Note * Telephone Encounter - Letty Morales LPN - 12/17/2024 2:56 PM EDT TC to pt who voiced understanding. Agreeable to [facility] in [place]. 31-90 day follow up made. Letty Morales LPN [facility]04-17-2025 Miscellaneous Notes* Telephone Encounter - Letty Morales LPN - 12/17/2024 2:56 PM EDT TC to pt who voiced understanding. Agreeable to [facility] in [place]. 31-90 day follow up made. Letty Morales LPN * Telephone Encounter - Michelle Becerril APRN.DEBORAH - 12/17/2024 1:24 PM EDT Please CALL pt with result of sleep study--it confirms that she has sleep apnea so I will prescribeautoCPAP for her. Will plan to send to [facility] unless she has another DME she wants to use. Michelle Becerril APRN.CNP documented in this encounterLouis Stokes Cleveland [facility]04-17-2025 Telephone encounter Note * Telephone Encounter - Michelle Becerril APRN.CNP - 12/17/2024 1:24 PM EDT Please CALL pt with result of sleep study--it confirms that she has sleep apnea so I will prescribeautoCPAP for her. Will plan to send to [facility] unless she has another DME she wants to use. Michelle Becerril APRN.CNP [facility]04-09-2025 Evaluation note* Diagnosis Onset Date Resolution Status Admit Date Greater trochanteric bursiti s of left hip acute December 09, 2024 1:22pm Rotator cuff tendonitis acute A pril 2024 1:22pm [place] [employer] Work Phone: [phone] Telephone encounter Note* Telephone Encounter - Janet Meza LPN - 12/08/2024 10:05 AM EDT Called and left message for patient, on self identified voicemail Janet Meza LPN December 08, 2024 10:05 AM [facility]04-08-2025 Miscellaneous Notes* Telephone Encounter - Janet Meza LPN - 12/08/2024 10:05 AM EDT Called and left message for patient, on self identified voicemail Janet Meza LPN December 08, 2024 10:05 AM * Telephone Encounter - Ifeoma Davis MD - 12/07/2024 5:36 PM EDT Rx for her. Ifeoma Folres MD * Telephone Encounter - Dara Valdez [...] advise, Dara Valdez RN documented in this encounterLouis Stokes Cleveland [facility] Center04-07-2025 Telephone encounter Note * Telephone Encounter - Ifoema Davis MD - 12/07/2024 5:36 PM EDT Rx for her. Ifeoma Flores MD [facility]04-07-2025 Telephone encounter Note* Telephone Encounter - Jackie Freitas MA - 12/07/2024 11:35 AM EDT This was ordered by sleep provider: Michelle Becerril. Results must come from ordering provider. Once sleep provider receives results the sleep office will contact patient. Jackie Freitas MA [facility]04-07-2025 Miscellaneous Notes* Telephone Encounter - [...] results. PSS reviewed provider's response in unread [employer] Message. Patient asking to be contacted as soon as results are in. She states she is struggling to sleep. * Telephone Encounter - Dara Valdez RN - 12/01/2024 8:58 AM EDT Patient calls and states that she was at [facility] for Sleep study on 11/17/2024. Patient asking about results for sleep study. Please review and advise, Dara Valdez RN documented in this encounterLouis Stokes Cleveland [facility] Center04-07-2025 Telephone encounter Note * Telephone [...] Please review and advise, Dara Valdez RN [facility]04-07-2025 Telephone encounter Note* Telephone Encounter - Rupa George - 12/07/2024 10:04 AM EDT Patient calling again for status update on sleep study results. PSS reviewed provider's response in unread [employer] Message. Patient asking to be contacted as soon as results are in. She states she is struggling to sleep. [facility]04-01-2025 Telephone encounter Note* Telephone Encounter - Dara Valdez RN - 12/01/2024 8:58 AM EDT Patient calls and states that she was at [facility] for Sleep study on 11/17/2024. Patient asking about results for sleep study. Please review and advise, Dara Valdez RN [facility]03-25-2025 Radiology Diagnostic study note [facility] Imaging Services [address] [place] [address] [id number] Hip Min 2 Views (Portable) MR#: [id number] Acct: [id number] Name: ALLIE RUTLEDGE ANN Rep #: [id number] : 1970 F 54 From: Benton Weathers DO PCP: Dr. Ifeoma Davis MD Status: REG C WALLY Study:Hip Min 2 Views (Portable) Date of Exam : 11/24/24 Exam# [id number] Ordering Dr: Allie Prakash PROCEDURE: HIP MIN [...] of the left groin region. Reading Location: [id number] CC: Allie Prakash; Dr. Ifeoma aDvis MD ~ Corrections Officer: Signed [facility]03-21-2025 Telephone encounter Note* Telephone Encounter - Spring Peñaloza RN - 11/20/2024 12:46 PM EDT Pt called and is notified of providers results and instructions. Pt voices understanding. Spring Peñaloza RN [facility]03-21-2025 Miscellaneous Notes* Telephone Encounter - [...] done yesterday, she can see results on [employer]. Glucose was abnormal at 73, she said [...] 71 Legend: (L) Low documented in this encounterLouis Stokes Cleveland [facility] Center03-21-2025 Telephone encounter Note * Telephone [...] decrease nausea. Thank you David Anna APRN.CNP [facility]03-21-2025 Telephone encounter Note* Telephone Encounter - Allie Mcknight LPN - 11/20/2024 10:38 AM EDT Patient calling asking about her lab results that she had done yesterday, [facility] Glucose was abnormal at 73, she said [...] eGFR >=60 mL/min/1.73m 71 Legend: (L) Low [facility]03-20-2025 NoteHNO ID: [id number] Author: DAVID ANNA APRN.ADMINISTRATIVE INTERN Service: ? Author Type: Nurse Practitioner Type: [...] Dr. Cynthia Ramos M.D. S BALLOON,UTERINE ABLATION [address]81 ALLERGIES Ultram [Tramadol Hcl], Darvocet A500 [Propoxyphene [...] spray Use 2 S (more content not included)...[facility]03-20-2025 History of Present illness Narrative* David Anna APRN.[facility] - 11/19/2024 12:58 PM EDT CC: Patient [...] Dr. Cynthia Ramos M.D. S BALLOON,[place] ABLATION [id number] ALLERGIES Ultram [Tramadol Hcl], Darvocet A500 [Propoxyphene [...] Maternal Aunt 55 ovarian cancer Heart Son [place] Ovarian cancer Maternal Grandmother Glaucoma No Family [...] - Instructed patient to contact office or [id number] after-hours promptly should condition worsen or any new symptoms appear. - [facility] and after hours crisis line 4. Anxiety [...] plan. David Anna APRN.CNP documented in this encounterLouis Stokes Cleveland [facility] Center03-06-2025 Telephone encounter Note * Telephone Encounter - Janet Meza LPN - 11/05/2024 1:23 PM EST Patient updated via active [employer] Janet Meza LPN November 05, 2024 1:23 PM [facility]03-06-2025 Miscellaneous Notes* Telephone Encounter - Janet Meza LPN - 11/05/2024 1:23 PM EST Patient updated via active [employer] Janet Meza LPN November 05, 2024 1:23 [...] Regards, Ifeoma Davis MD documented in this encounterLouis Stokes Cleveland [facility] Center03-06-2025 Telephone encounter Note * Telephone [...] help her fatigue. Regards, Ifeoma Davis MD [facility]03-04-2025 Instructions* Patient Instructions* Ifeoma Davis MD - 11/03/2024 2:51 PM EST Try taking the percocet without trazodone to see if that helps sleep with out feeling like a hang over. documented in this encounterLouis Stokes Cleveland [facility] Center03-04-2025 NoteHNO ID: [id number] Author: IFEOMA DAVIS MD Service: ? Author [...] her everyday life. 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 States she has not had a bleed in her eye at a long time, but at the same time she states she wouldn't see it at this point. Slowly progressive loss of peripheral vision. Patient also reports that she has issues with calcified joints/arthritis. [place], so she can use the [employer] for going places, [employer]. She is engaged in a lot of activities, and is giving back to the community as much as she can in every way she can. She has a son in [place], and a brother near by. Her eyes [...] extremely active in the community. [place] the [employer] [place] to [employer] every Saturday, [...] available full-time. Needs include home health aid, mcc if applicable - says her boyfriend could [...] Had worked with an OT previously through [employer] in [place] previously who assisted with various techniques and [...] 100 mgs is a (more content not included)...[facility]03-04-2025 History of Present illness Narrative* Ifeoma [...] her everyday life. 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 States she has not had a bleed in her eye at a long time, but at the same time she states she wouldn't see it at this point. Slowly progressive loss of peripheral vision. Patient also reports that she has issueswith calcified joints/arthritis. [place], so she can use the [employer] for going places, [employer]. She is engaged in a lot of activities, and is giving back to the community as much as she can in every way she can. She has a son in [place], and a brother near by. Her eyes [...] extremely active in the community. Takes the [employer] bus to [employer] every Saturday, [...] available full-time. Needs include home health aid, mcc if applicable - says her boyfriend could [...] Had worked with an OT previously through [facility] in [place] previously who assisted with various techniques and [...] Maternal Aunt 55 ovarian cancer Heart Son [place] Ovarian cancer Maternal Grandmother Glaucoma No Family [...] DIFFERENTIAL Ifeoma Davis MD documented in this encounterLouis Stokes Cleveland [facility]03-03-2025 Telephone encounter Note * Telephone Encounter - Laura Lepe MA - 11/02/2024 7:50 AM EST Patient given results and verbalized understanding of instructions given. Laura Lepe MA [facility]03-03-2025 Miscellaneous Notes* Telephone Encounter - [...] please follow-up with PCP. documented in this encounterLouis Stokes Cleveland [facility] Center03-03-2025 Telephone encounter Note * Telephone Encounter - Britta Gunn PA - 11/02/2024 7:10 AM EST Please let patient know urine culture did not reveal clear evidence of UTI. If she is persistent with symptoms, please follow-up with PCP. [facility]03-01-2025 Instructions* Patient Instructions* Chantal Segura APRN.CNP - [...] pain go to ER. documented in this encounterLouis Stokes Cleveland Va Medical Center03-01-2025 NoteHNO ID: [id number] Author: CHANTAL SEGURA APRN.DEBORAH Service: ? Author Type: Nurse Practitioner Type: Progress Notes Filed: 10/31/2024 13:22 Note Text: Subjective The history is provided by the patient. No insulation cutter and former was used. HPI Allie Rutledge is a [...] have confirmed and edited as necessary, the [facility] Review of Systems Constitutional: Negative for [...] detail warranting prompt ER evaluation. franko Segura [facility] History of Present illness Narrative* Chantal Segura APRN.DEBORAH - 10/31/2024 1:12 PM EST Subjective The history is provided by the patient. No insulation cutter and former was used. HPI Allie Rutledge is a [...] have confirmed and edited as necessary, the [facility] Review of Systems Constitutional: Negative for [...] indetail warranting prompt ER evaluation. franko Segura APRN.DEBORAH documented in this encounterLouis Stokes Cleveland [facility] Center02-19-2025 History of Present illness Narrative* Kimberley Salmeron [...] PATIENT PRESENTS WITH AN IMPLANTABLE OR ATTACHED DOLL REPAIRER: No RADIOLOGY DEPARTMENT: Mammography PERIPHERAL IV DATA: Not applicable SIGNED BY: Rubin Carlton October 21, 2024 2:00 PM documented in this encounterLouis Stokes Cleveland Va Medical Center02-19-2025 NoteHNO ID: [id number] Author: KIMBERLEY SALMERON Mammo Tech Service: ? Author Type: Insurance Underwriter Sales Type: Progress Notes Filed: 10/21/2024 14:00 Note [...] PATIENT PRESENTS WITH AN IMPLANTABLE OR ATTACHED DOLL REPAIRER: No RADIOLOGY DEPARTMENT: Mammography PERIPHERAL IV DATA: Not applicable SIGNED BY: Kimberley Salmeron [employer] October 21, 2024 2:00 [facility]02-14-2025 Telephone encounter Note* Telephone Encounter - Letty Morales LPN - 10/16/2024 2:27 PM EST TC to Dr. Fox office, [facility] did not receive fax. Sent again. Staff will make sure to speak withDr. Fox. Letty Morales LPN [facility]02-14-2025 Miscellaneous Notes* Telephone Encounter - Letty Morales LPN - 10/16/2024 2:27 PM EST TC to Dr. Fox office, [facility] did not receive fax. Sent again. Staff will make sure to speak withDr. Fox. Letty Morales LPN * Telephone Encounter - Letty Morales LPN - 09/28/2024 8:51 AM EST Office note faxed per request. Letty Morales LPN * Telephone Encounter - Michelle Becerril APRN.ADMINISTRATIVE INTERN - 09/25/2024 4:36 PM EST Please print my note and I'll write a msg to Dr Betancourt, we can fax him, then we'll let her know. We could use [facility] lab. She can still take [...] okay withincreasing the gabapentin, uses [facility] in [place]. Aware we need to talk to Dr. Betancourt. Has upcoming appts with PCP and pain management. Is okay to do a sleep study using [facility] but is unable to travel out of town very far. Letty Morales LPN * Telephone Encounter - Michelle Becerril APRN.CNP - 09/25/2024 3:52 PM EST Please CALL pt and tell her I reviewed her case with Dr Jiménez. --We looked at her [facility] sleep study report--Dr Jiménez believes she is [...] do thatwould she consider going to a [facility] sleep lab? Michelle Becerril APRN.ADMINISTRATIVE INTERN documented in this encounterLouis Stokes Cleveland [facility]02-11-2025 NoteHNO ID: [id number] Author: CYNTHIA RAMOS MD Service: ? Author [...] Plan: As above Has been working with [facility] for - progressive pseudoxanthoma elasticum macular atrophy [...] management of this patient's care with the Resident/Fellow/Production Support Developer, if applicable. I also have reviewed and agree with the assessment and plan as stated above and agree with all of its relevant components. Cynthia Ramos MD October 13, 2024 11:05 [facility] 10-13-2024 History of Present illness Narrative* Cynthia [...] Plan: As above Has been working with [facility] for - progressive pseudoxanthoma elasticum macular atrophy [...] management of this patient's care with the Resident/Fellow/Production Support Developer, if applicable. I also have reviewed and agree with the assessment and plan as stated above and agree with all of its relevant components. Cynthia Ramos MD October 13, 2024 11:05 AM documented in this encounterLouis Stokes Cleveland [facility] Medical Center02-11-2025 NoteDate of Procedure 10/13/2024. Insurance Underwriter Sales Information Car Jockey: lino. Start time: 9:55 AM. Stop time: 9:55 AM. Notes -- OCT 10/13/2024 OD atrophy, no fluid; OS atrophy, nasal fluid stable, not in [id number] Telephone encounter Note* Telephone Encounter - Jackie Freitas MA - 10/12/2024 3:27 PM EST Patient at PCP appointment. Will have patient stop at discharge to schedule PSG. Jackie Freitas MA [facility]02-10-2025 Miscellaneous Notes* Telephone Encounter - Jackie Freitas MA - 10/12/2024 3:27 PM EST Patient at PCP appointment. Will have patient stop at discharge to schedule PSG. Jackie Freitas MA * Telephone Encounter - Michelle Becerril APRN.CNP - 10/08/2024 12:55 PM EST PSG ordered. Please assist pt in scheduling it at [facility]. Michelle Becerril APRN.DEBORAH * Telephone [...] advise, Dara Valdez RN documented in this encounterLouis Stokes Cleveland Va Medical Center02-10-2025 NoteHNO ID: [id number] Author: IFEOMA DAVIS MD Service: ? Author [...] her everyday life. 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 States she has not had a bleed in her eye at a long time, but at the same time she states she wouldn't see it at this point. Slowly progressive loss of peripheral vision. Patient also reports that she has issues with calcified joints/arthritis. [place], so she can use the [employer] for going places, [employer]. She is engaged in a lot of activities, and is giving back to the community as much as she can in every way she can. She has a son in [place], and a brother near by. Her eyes [...] extremely active in the community. Takes the [employer] bus to [employer] every Saturday, [...] available full-time. Needs include home health aid, mcc if applicable - says her boyfriend could [...] Had worked with an OT previously through [facility] in [place] previously who assisted with various techniques and [...] Hcl], Darvocet A500 [Propox (more content not included)...[facility]02-10-2025 History of Present illness Narrative* Ifeoma [...] her everyday life. 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 States she has not had a bleed in her eye at a long time, but at the same time she states she wouldn't see it at this point. Slowly progressive loss of peripheral vision. Patient also reports that she has issueswith calcified joints/arthritis. [place], so she can use the [employer] for going places, [employer]. She is engaged in a lot of activities, and is giving back to the community as much as she can in every way she can. She has a son in [place], and a brother near by. Her eyes [...] extremely active in the community. Takes the [employer] bus to [employer] every Saturday, [...] available full-time. Needs include home health aid, mcc if applicable - says her boyfriend could [...] Had worked with an OT previously through [facility] in [place] previously who assisted with various techniques and [...] Maternal Aunt 55 ovarian cancer Heart Son [place] Ovarian cancer Maternal Grandmother Glaucoma No Family [...] wellbutrin Ifeoma Davis MD documented in this encounterLouis Stokes Cleveland [facility] Center02-06-2025 Telephone encounter Note * Telephone Encounter - Michelle Becerril APRN.CNP - 10/08/2024 12:55 PM EST PSG ordered. Please assist pt in scheduling it at [facility]. Michelle Becerril APRN.CNP [facility]02-05-2025 NoteHNO ID: [id number] Author: CALLI GERBER APRN.CNP Service: ? Author [...] Dr. Cynthia Ramos M.D. S BALLOON,UTERINE ABLATION 61912 ALLERGIES Ultram [Tramadol Hcl], Darvocet A500 [Propoxyphene [...] USE 2 SPRAYS NASAL (more content not included)...[facility]02-05-2025 History of Present illness Narrative* Calli Gerber, BEAD CUTTER.ADMINISTRATIVE INTERN - 10/07/2024 6:31 PM EST CC: Patient [...] adenoma CT MAXILLOFAC/SINUS 06/29/2015 [facility] 05/30/2023 Small hiatal hernia, [...] Dr. Cynthia Ramos M.D. S BALLOON,UTERINE ABLATION 99499 ALLERGIES Ultram [Tramadol Hcl], Darvocet A500 [Propoxyphene [...] Maternal Aunt 55 ovarian cancer Heart Son [place] Ovarian cancer Maternal Grandmother Glaucoma No Family [...] after discussing with her and reviewing Dr. Ganta's note there does not seem to be [...] care. Calli Gerber APRN.DEBORAH documented in this encounterLouis Stokes Cleveland Va Medical Center02-05-2025 Telephone encounter Note * Telephone [...] scheduled with other provider. Starla Mckeon LPN [facility]02-05-2025 Miscellaneous Notes* Telephone Encounter - [...] provider. Starla Mckeon LPN documented in this encounterLouis Stokes Cleveland [facility] Center02-05-2025 Telephone encounter Note * Telephone [...] Please review and advise, Dara Valdez RN [facility]01-28-2025 NoteHNO ID: [id number] Author: IFEOMA DAVIS MD Service: ? Author [...] her everyday life. 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 States she has not had a bleed in her eye at a long time, but at the same time she states she wouldn't see it at this point. Slowly progressive loss of peripheral vision. Patient also reports that she has issues with calcified joints/arthritis. [place], so she can use the [employer] for going places, [employer]. She is engaged in a lot of activities, and is giving back to the community as much as she can in every way she can. She has a son in [place], and a brother near by. Her eyes [...] extremely active in the community. Takes the [employer] bus to [employer] every Saturday, [...] available full-time. Needs include home health aid, mcc if applicable - says her boyfriend could [...] Had worked with an OT previously through [employer] in [place] previously who assisted with various techniques and [...] Mitral valve disorders(424.0) M (more content not included)...[facility]01-28-2025 History of Present illness Narrative* Ifeoma Davis [...] her everyday life. 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 States she has not had a bleed in her eye at a long time, but at the same time she states she wouldn't see it at this point. Slowly progressive loss of peripheral vision. Patient also reports that she has issueswith calcified joints/arthritis. [place], so she can use the [employer] for going places, [employer]. She is engaged in a lot of activities, and is giving back to the community as much as she can in every way she can. She has a son in [place], and a brother near by. Her eyes [...] extremely active in the community. Takes the [employer] bus to [employer] every Saturday, [...] available full-time. Needs include home health aid, mcc if applicable - says her boyfriend could [...] Had worked with an OT previously through [facility] in [place] previously who assisted with various techniques and [...] Dr. Cynthia Ramos M.D. S BALLOON,UTERINE ABLATION 51777 ALLERGIES Ultram [Tramadol Hcl], Darvocet A500 [Propoxyphene [...] Maternal Aunt 55 ovarian cancer Heart Son [place] Ovarian cancer Maternal Grandmother Glaucoma No Family [...] TABLET Ifeoma Davis MD documented in this encounterLouis Stokes Cleveland [facility] Medical Center01-27-2025 Telephone encounter Note * Telephone Encounter - Letty Morales LPN - 09/28/2024 8:51 AM EST Office note faxed per request. Letty Morales LPN [facility]01-24-2025 Telephone encounter Note* Telephone Encounter - Michelle Becerril APRN.DEBORAH - 09/25/2024 4:36 PM EST Please print my note and I'll write a msg to Dr Betancourt, we can fax him, then we'll let her know. We could use [facility] lab. She can still take flexeril. Michelle Becerril APRN.DEBORAH [facility] Work Phone: [phone] Telephone encounter Note* Telephone Encounter - Letty [...] okay to do a sleep study using [facility] but is unable to travel out of town very far. Letty Morales LPN [facility]01-24-2025 Telephone encounter Note* Telephone Encounter - Michelle Becerril APRN.CNP - 09/25/2024 3:52 PM EST Please CALL pt and tell her I reviewed her case with Dr Jiménez. --We looked at her [facility] sleep study report--Dr Jiménez believes she is [...] do thatwould she consider going to a [facility] sleep lab? Michelle Becerril APRN.CNP [facility]01-23-2025 History of Present illness Narrative* Michelle Becerirl APRN.CNP - 09/24/2024 3:00 PM EST Images from the original note were not included. Addendum: I reviewed her case with Dr Jiménez. We looked at her [facility] sleep study report including hypnogram--Dr Jiménez [...] [facility] sleep lab but she would requirea food mobile driver due to her blindness. Michelle Becerril APRN.CNP [facility] Sleep Disorders Center New Patient [...] gabapentin at HS. Had a PSG at [facility] -- didn't meet criteria for DAYSI using [...] night A Polysomnogram performed on 07/22/24 at [facility] revealed an AHI of 8.1 (3%) [...] adenoma CT MAXILLOFAC/SINUS 06/29/2015 normal EGD W/O [facility] SPEC VARICIES INJ 05/30/2023 Small hiatal hernia, [...] Dr. Cynthia Ramos M.D. S BALLOON,UTERINE ABLATION 16748 ACTIVE PROBLEM LIST Patellar Tendinitis Pxe (Pseudoxanthoma Elasticum) Macular Degeneration Legally Blind Hypertension Carotid Atherosclerosis Pad (Peripheral Artery Disease) ([facility]) Aortic Sclerosis Angioid Streaks of [...] Maternal Aunt 55 ovarian cancer Heart Son [place] Ovarian cancer Maternal Grandmother Glaucoma No Family [...] leg movements in her sleep. PSG at [facility] didn't show significant arousals from PLMs [...] with Dr Jiménez then call pt with gerri Becerril APRN.CNP I spent a total of 60+ minutes on the date of the service which included preparing to see the patient, [id number] patient care, completing clinical documentation, obtaining and/or reviewing separately obtained history, performing a medically appropriate examination, counseling and educating the pa tient/family/caregiver, and communicating with other HCPs (not separately reported). documented in this encounterLouis Stokes Cleveland Va Medical Center01-23-2025 NoteHNO ID: [id number] Author: MICHELLE BECERRIL APRN.DEBORAH Service: ? Author Type: Nurse Practitioner Type: Progress Notes Filed: 09/25/2024 15:51 Note Text: Addendum: I reviewed her case with Dr Jiménez. We looked at her [facility] sleep study report including hypnogram--Dr Jiménez [...] could give ambien that night, would prefer [facility] sleep lab but she would require a food mobile driver due to her blindness. Michelle Becerril APRN.[facility] Sleep Disorders Center New Patient Evaluation [...] gabapentin at HS. Had a PSG at [facility] -- didn't meet criteria for DAYSI using [...] night A Polysomnogram performed on 07/22/24 at [facility] revealed an AHI of 8.1 (3%) [...] (03/12/17) DELIVERY ONLY 1988 (more content not included)...[facility]01-14-2025 NoteHNO ID: [id number] Author: DESTINEY PENDLETON APRN.ADMINISTRATIVE INTERN Service: ? Author Type: Nurse Practitioner Type: [...] L3 SAB0 IAB0 Ectopic0 Multiple0 Live Births0 Hydrodynamics Teacher History LMP: Ablation Age at Menarche: Age at First : Age at Menopause: Hydrodynamics Teacher History Comments: Sexual Activity: Not Currently; Male [...] Dr. Cynthia Ramos M.D. S BALLOON,UTERINE ABLATION 85287 FAMILY HISTORY Problem Relation Age of Onset Heart Father Age 61 Heart Maternal Grandfather Cancer Paternal Grandmother Breast Cancer Maternal Aunt 55 ovarian cancer Heart Son [place] Ovarian cancer Maternal Grandmother Glaucoma No Family [...] ORAL) Take by mouth. (more content not included)...[facility]01-14-2025 History of Present illness Narrative* Destiney Pendleton APRN.ADMINISTRATIVE INTERN - 09/15/2024 10:04 AM EST Allie Rutledge [...] L3 SAB0 IAB0 Ectopic0 Multiple0 Live Births0 Hydrodynamics Teacher History LMP: Ablation Age at Menarche: Age at First : Age at Menopause: Hydrodynamics Teacher History Comments: Sexual Activity: Not Currently; Male [...] Dr. Cynthia Ramos M.D. S BALLOON,UTERINE ABLATION 64216 FAMILY HISTORY Problem Relation Age of Onset Heart Father Age 61 Heart Maternal Grandfather Cancer Paternal Grandmother Breast Cancer Maternal Aunt 55 ovarian cancer Heart Son [place] Ovarian cancer Maternal Grandmother Glaucoma No Family [...] prempro Follow up as needed Destiney Pendleton APRN.DEBORAH Medical Decision Making: Problems: Low: Acute, uncomplicated illness or injury Risk: Moderate: Drug management Medical Decision Making Level: 3 - Low documented in this encounterLouis Stokes Cleveland Va Medical Center01-07-2025 Telephone encounter Note * Telephone [...] calling: self Call patient at: on cell [phone] (home) [phone] (cell) Was an appointment scheduled: No Closing statement: Results or non-symptom based questions: Thank you for calling [facility], your call will be returned within the next business day. Nikkie Awad [facility]01-07-2025 Miscellaneous Notes* Telephone Encounter - Nikkie Awad - 09/08/2024 10:03 AM EST Allie is calling Ifeoma Davis MD today with concern regarding Refill Request Patient calling and states that her mail order pharmacy called and told her that she needs refills on just about all of her medications. 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 PHARMACY: [facility]. Patient is asking for Flonase right away and be sent to [facility]. Patient has been identified by name and birthdate. Duration of symptoms: N/A Person calling: self Call patient at: on cell [phone] (home) [phone] (cell) Was an appointment scheduled: No Closing statement: Results or non-symptom based questions: Thank you for calling [facility], your call will be returned within the next business day. Nikkie Awad documented in this encounterLouis Stokes Cleveland Va Medical Center12-12-2024 Telephone encounter Note * Telephone Encounter - David Anna APRN.CNP - 08/13/2024 7:09 AM EST She has an upcoming appointment with Dr. Davis next week. Have her take a few blood pressures different days after sitting to rest for a good 5 minutes and can bring readings to appointment to reviewwith her. Thank you David Anna APRN.CNP [facility]12-12-2024 Miscellaneous Notes* Telephone Encounter - David Anna APRN.CNP - 08/13/2024 7:09 AM EST She has an upcoming appointment with Dr. Davis next week. Have her take a few blood pressures different days after sitting to rest for a good 5 minutes and can bring readings to appointment to reviewwith her. Thank you David Anna APRN.ADMINISTRATIVE INTERN * Telephone Encounter - Virginia Lorenz MA [...] and by whom? Thank you David Anna APRN.ADMINISTRATIVE INTERN * Telephone Encounter - Emily Prieto LPN - 08/12/2024 11:17 AM EST Patient calling, states she was instructed to call in with 3 separate BP readings today. 9:17am BP 155/82 HR 89 10:25am BP 146/88 HR 91 11:12am BP 158/88 HR 102 documented in this encounterLouis Stokes Cleveland Va Medical Center12-11-2024 Telephone encounter Note * Telephone Encounter - Virginia Lorenz MA - 08/12/2024 2:30 PM EST Spoke with patient regarding below. After reviewing, it looks like patient was called on 08/10 by Patient Outreach and patient outreach MA instructed patient to call in readings. See 08/10/24 patient outreach. Virginia Lorenz MA [facility]12-11-2024 Telephone encounter Note* Telephone Encounter - Tori Morales MA - 08/12/2024 2:09 PM EST Left message for return call. [facility]12-11-2024 Telephone encounter Note* Telephone Encounter - David Anna APRN.CNP - 08/12/2024 1:30 PM EST That is higher then we would like to see. I do not see anything in the chart instructing her to do so. What is going on that she was asked to do this and by whom? Thank you David Anna APRN.DEBORAH [facility]12-11-2024 Telephone encounter Note* Telephone Encounter - Emily Prieto LPN - 08/12/2024 11:17 AM EST Patient calling, states she was instructed to call in with 3 separate BP readings today. 9:17am BP 155/82 HR 89 10:25am BP 146/88 HR 91 11:12am BP 158/88 HR 102 [facility]12-09-2024 NoteHNO ID: [id number] Author: JON ROSS MA Service: ? Author Type: Light Oil Operator Type: Progress Notes Filed: 08/10/2024 11:30 Note Text: POPULATION HEALTH NAVIGATION OUTREACH Action/FYI Patient is on [facility] RISHI CURRENT ROSTER Workbench list for below [...] Jon Ross MA August 10, 2024 11:21 [facility]12-09-2024 History of Present illness Narrative* Jon Ross MA - 08/10/2024 11:21 AM EST POPULATION HEALTH NAVIGATION OUTREACH Action/FYI Patient is on [facility] RISHI CURRENT ROSTER Workbench list for [...] 10, 2024 11:21 AM documented in this encounterLouis Stokes Cleveland Va Medical Center12-09-2024 NotePatient Outreach (NETNAV) ALLIE RUTLEDGE ([id number]) 1970 F Date Time Provider Department 08/10/24 JON ROSS NETNAV During your visit today, we recorded the following information about you: Jon Ross MA 08/10/2024 11:30 AM Addendum POPULATION HEALTH NAVIGATION OUTREACH Action/FYI Patient is on [facility] RISHI CURRENT ROSTER Workbench list for [...] Health Navigation Outreach [3910] C[facility] Prescriptions as of 08/10/2024 - gabapentin (NEURONTIN) [...] disease) (HCC) [I73.9] 11/15/2015 Aortic sclerosis (HCC) [WYF2173] 11/15/2015 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 [facility] not at this location anymore. However, [employer] and [facility] can come to patients home and set up machine and instruct patient. Patient notified of the above and will contact insurance to inquire if they are in network. Pt willcall back and let us know where to send the order. Virginia Lorenz MA [facility]12-04-2024 Miscellaneous Notes* Telephone Encounter - Virginia Lorenz MA - 08/05/2024 11:08 AM EST Spoke with sleep/neuro nurse here in [facility]. [facility] not at this location anymore. However, [employer] and [facility] can come to patients home and set up machine and instruct patient. Patient notified of the above and will contact insurance to inquire if they are in network. Pt willcall back and let us know where to send the order. Virginia Lorenz MA * Telephone Encounter - Spring Peñaloza, BRITTANY - 08/05/2024 10:32 AM EST Pt called in and reports she wasn't able to get in to sleep medicine until 10/07/24. Pt is wanting toget CPAP machine before then. I told her she would need to call her [employer] and find out the DME they use and call us back. I said it looked like Dr Davis knew about the [facility] to help her to use [...] methodologies like the inspire or dental appliances. RegardsIfeoma MD * Telephone Encounter - Virginia Lorenz [...] a CPAP machine and work with the [facility] clinic to help her to use it. For periodic limb movement disorders we could see if the treatment of sleep apnea would help with that symptom and if it does not we can revisit it in the future. RegardsIfeoma MD * Telephone Encounter - Virginia Lorenz MA - 07/27/2024 1:05 PM EST Printed from [employer] and placed on PCP desk. Virginia Lorenz [...] she had a sleep study done at [facility] and would like the results. Pt reports she cannot access the results. Sarahi Dawkins LPN documented in this encounterLouis Stokes Cleveland Va Medical Center12-04-2024 Telephone encounter Note * Telephone Encounter - Spring Peñaloza RN - 08/05/2024 10:32 AM EST Pt called in and reports she wasn't able to get in to sleep medicine until 10/07/24. Pt is wanting toget CPAP machine before then. I told her she would need to call her [employer] company and find out the DME they use and call us back. I said it looked like Dr Davis knew about the [facility] clinic to help her to use it as she is legally blind, so she would need to set that up. Pt states she is always so tired, and she doesn't want to wait until October to get it. [facility]11-27-2024 Telephone encounter Note* Telephone Encounter - Sharifa Landa - 07/29/2024 11:34 AM EST 1st attempt LVM to schedule with sleep medicine [facility]11-27-2024 Telephone encounter Note* Telephone Encounter - Virginia Lorenz MA - 07/29/2024 11:09 AM EST Allie notified and verbalized understanding. PSS, please contact patient to schedule with Sleep Medicine. Virginia Lorenz MA [facility]11-26-2024 Telephone encounter Note* Telephone Encounter - Ifeoma Davis MD - 07/28/2024 4:41 PM EST I understand her hesitancy. Because of her limitations I would like her to see sleep medicine as they might consider other methodologies like the inspire or dental appliances. Regards, Ifeoma Davis MD [facility]11-26-2024 Telephone encounter Note* Telephone Encounter - Virginia Lorenz MA - 07/28/2024 9:37 AM EST Patient notified and verbalized understanding. Patient asking if PCP feels that she would be able to do this herself with her vision. Putting the mask on, etc. Virginia Lorenz MA [facility]11-25-2024 Telephone encounter Note* Telephone Encounter - Ifeoma Davis MD - 07/27/2024 6:32 PM EST Please let patient know that she mild sleep apnea and she also likely has periodic limb movement disorder. The ideal treatment would be a CPAP machine. If she is willing to try it we will send her a CPAP machine and work with the [facility] clinic to help her to use it. For periodic limb movement disorders we could see if the treatment of sleep apnea would help with that symptom and if it does not we can revisit it in the future. Regards, Ifeoma Davis MD [facility]11-25-2024 Telephone encounter Note* Telephone Encounter - Virginia Lorenz MA - 07/27/2024 1:05 PM EST Printed from [employer] and placed on PCP desk. Virginia Lorenz MA [facility]11-25-2024 Telephone encounter Note* Telephone Encounter - David Anna APRN.CNP - 07/27/2024 12:25 PM EST We don't have the results either. Please get results then place on PCP desk to review. Thank you David Anna APRN.ADMINISTRATIVE INTERN [facility]11-25-2024 Telephone encounter Note* Telephone Encounter - Sarahi Dawkins LPN - 07/27/2024 10:40 AM EST Pt calls to report she had a sleep study done at [facility] and would like the results. Pt reports she cannot access the results. Sarahi Dawkins LPN [facility]11-08-2024 Telephone encounter Note* Telephone Encounter - Angelica Arreola RN - 07/10/2024 9:15 AM EST [facility] Central Scheduling calling and states they have received a non-signed sleep study order for mutual patient. Requesting a signed order. Signed order faxed to [phone] as requested. Angelica Arreola RN [facility]11-08-2024 Miscellaneous Notes* Telephone Encounter - Angelica Arreoal RN - 07/10/2024 9:15 AM EST [facility] Central Scheduling calling and states they have received a non-signed sleep study order for mutual patient. Requesting a signed order. Signed order faxed to [phone] as requested. Angelica Arreola RN documented in this encounterLouis Stokes Cleveland Va Medical Center11-07-2024 Telephone encounter Note * Telephone Encounter - Janet Meza LPN - 07/09/2024 2:11 PM EST Called and spoke to patient would prefer [facility] d/t legally blind. Faxed order and facesheet to [facility] sleep study Janet Meza LPN July 09, 2024 2:18 PM [facility]11-07-2024 Miscellaneous Notes* Telephone Encounter - Janet Meza LPN - 07/09/2024 2:11 PM EST Called and spoke to patient would prefer [facility] d/t legally blind. Faxed order and facesheet to [facility] sleep study Janet Meza LPN July [...] calling: self Call patient at: at home [phone] (home) [phone] (cell) Was an appointment scheduled: No Closing statement: Results or non-symptom based questions: Thank you for calling [facility], your call will be returned within the next business day. Myra Mathur documented in this encounterLouis Stokes Cleveland Va Medical Center11-07-2024 Telephone encounter Note * Telephone Encounter - Ifeoma Davis MD - 07/09/2024 1:27 PM EST Staff, Please co ordinate with her to get her sleep study done in the sleep lab. [facility] may be easier forher. Regards, Ifeoma Davis MD [facility]11-07-2024 Telephone encounter Note* Telephone Encounter - Judith Quach LPN - 07/09/2024 7:30 AM EST Patient given results and verbalized understanding of instructions given. Judith Quach LPN [facility]11-07-2024 Miscellaneous Notes* Telephone Encounter - Judith Quach LPN - 07/09/2024 7:30 AM EST Patient given results and verbalized understanding of instructions given. Judith Quach LPN * Telephone Encounter - Adriana Vidal APRN.CNP - 07/09/2024 7:16 AM EST Please notify that covid/flu/rsv testing negative. Continue with plan of care as discussed during visit. documented in this encounterLouis Stokes Cleveland Va [facility] Center11-07-2024 Telephone encounter Note * Telephone Encounter - Adriana Vidal APRN.CNP - 07/09/2024 7:16 AM EST Please notify that covid/flu/rsv testing negative. Continue with plan of care as discussed during visit. [facility] Work Phone: 1(869) 736-173711-06-2024 NoteHNO ID: [id number] Author: LOWELL KELLY APRN.CNP Service: ? Author Type: Nurse Practitioner Type: Progress Notes Filed: 07/08/2024 17:47 Note Text: CC: Patient presents with: Headache: [place], bodyaches, fatigue x 3 days HPI: Allie A Altmar is a 54 year old female who [...] EYE) Right x 5 (03/12/17) DELIVERY ONLY 1989, 1991, 1993 , low cervical-x 3 COLONOSCOPY [...] Dr. Cynthia Ramos M.D. S BALLOON,[place]BL[place] [address] ALLERGIES Ultram [Tramadol Hcl], Darvocet A500 [Propoxyphene [...] (ACULAR) 0.5 % ophthal (more content not included)...[facility]11-06-2024 History of Present illness Narrative* Lowell Kelly APRN.[facility] - 07/08/2024 5:44 PM EST CC: Patient [...] Dr. Cynthia Ramos M.D. S BALLOON,[place] ABLATION [address] ALLERGIES Ultram [Tramadol Hcl], Darvocet A500 [Propoxyphene [...] Maternal Aunt 55 ovarian cancer Heart Son [place] Ovarian cancer Maternal Grandmother Glaucoma No Family [...] Patient agreeable to treatment plan. Lowell Kelly APRN.ADMINISTRATIVE INTERN documented in this encounterLouis Stokes Cleveland Va Medical Center11-06-2024 Telephone encounter Note * Telephone Encounter - Angelica Arreola RN - 07/08/2024 11:07 AM EST Patient returned call. Patient states yes, she is willing to do an in house test. States she is willing to do whatever Dr. Davis thinks is best. Please call patient with response or any new test orders. Angelica Arreola RN [facility]11-06-2024 Telephone encounter Note* Telephone Encounter - Clint Brennan RN - 07/08/2024 9:52 AM EST Phoned pt. No answer. No voicemail. [facility]11-05-2024 Telephone encounter Note* Telephone Encounter - Ifeoma Davis MD - 07/07/2024 5:13 PM EST Would she be willing for an inhouse test? Due to her blindness? Regards, Ifeoma Davis MD [facility]11-05-2024 Telephone encounter Note* Telephone Encounter [...] calling: self Call patient at: at home [phone] (home) [phone] (cell) Was an appointment scheduled: No Closing statement: Results or non-symptom based questions: Thank you for calling [facility], your call will be returned within the next business day. Myra Mathur [facility]11-05-2024 Telephone encounter Note* Telephone Encounter - Myra [...] Myra Mathur July 07, 2024 9:49 AM [facility]11-05-2024 Miscellaneous Notes* Telephone Encounter - Myra Isidro [...] 07, 2024 9:49 AM documented in this encounterLouis Stokes Cleveland Va Medical Center10-28-2024 Telephone encounter Note * Telephone [...] Dawkins LPN June 29, 2024 10:14 AM [facility]10-28-2024 Miscellaneous Notes* Telephone Encounter - [...] 29, 2024 10:14 AM documented in this encounterLouis Stokes Cleveland Va Medical Center10-14-2024 History of Present illness Narrative* Chana Bridges MA - 06/15/2024 3:47 PM EDT POPULATION HEALTH NAVIGATION OUTREACH Action/FYI Med Adherence Atorvastatin: Last fill 03/04/24; 90 days - 0 refills Needs new Rx Unable to reach via phone (did not ring); Breeze message sent Reason for Outreach Med Adherence Patient Contacted: Unable or unnecessary to reach patient: Unable to leave message MyChart message sent Navigation Signature: Chana Bridges MA June 15, 2024 3:48 PM documented in this encounterLouis Stokes Cleveland Va Medical Center10-11-2024 History of Present illness Narrative* Jon Ross MA - 06/12/2024 9:43 AM EDT POPULATION HEALTH NAVIGATION OUTREACH Action/FYI Patient is on [facility] CURRENT ROSTER Workbench list for below and [...] Spoke to patient. Scheduled mammogram 06-18-24 in [place] Declined influenza Updated upcoming 2024 OV notes Please address due care gaps and HCC gap closure Reason for Outreach Care Gap/HCC or Scheduling Wellness Visits Care Gaps due: Breast Cancer Screening Flu Vaccine Patient Contacted: Spoke to patient/parent/or legal guardian Patient identified by name and : Yes Care Gap/HCC/Scheduling Wellness actions taken: Patient scheduled/pended orders: Breast Cancer Screening 06/18/2024 in RADIO MAMMO [facility] with SCREEN MAMMO [facility] - Encounter for screening mammogram for malignant neoplasm of breast [Z12.31] 08/18/2024 in [facility] with CYNTHIA RAMOS 6 months VaTa and mac OCT 09/29/2024 in INTM [facility] with IFEOMA DAVIS - 6 mo follow up; routine, Please address due care gap and HCC gap closure HCC related Navigation Signature: Jon Ross MA June 12, 2024 9:43 AM documented in this encounterLouis Stokes Cleveland [facility] Medical Center09-27-2024 History of Present illness Narrative* [facility] Eileen Posey - 05/29/2024 2:06 PM EDT POPULATION HEALTH NAVIGATION OUTREACH Action/I Medication adherence review for med below ATORVASTATIN [...] Patient will notify Pharmacy Navigation Signature: [facility] Taty May 29, 2024 2:07 PM documented in this encounterCleveland [id number] Telephone encounter Note * Telephone Encounter - [...] and have staff phone her to schedule. [phone] [facility]09-12-2024 Miscellaneous Notes* Telephone Encounter - [...] and have staff phone her to schedule. [phone] documented in this encounterLouis Stokes Cleveland Va Medical Center09-09-2024 Telephone encounter Note * Telephone Encounter - Khalida Agarwal - 05/11/2024 1:05 PM EDT Letter placed in mail to be mailed out to patient. Khalida Agarwal May 11, 2024 1:05 PM [facility]09-09-2024 Miscellaneous Notes* Telephone Encounter - Khalida Agarwal [...] 06, 2024 3:18 PM documented in this encounterLouis Stokes Cleveland Va Medical Center09-05-2024 Telephone encounter Note * Telephone Encounter - Cynthia Ramos MD - 05/07/2024 4:30 PM EDT Condition is permanent. Letter updated and forwarded to Sana. Cynthia Ramos MD 05/07/2024 4:30 PM [facility]09-04-2024 Telephone encounter Note* Telephone Encounter - Barbie Alicea - 05/06/2024 3:16 PM EDT Patient states Certificate of Blindness letter dated 04/13 requires a duration. Patient would like letter mailed once completed. Barbie Alicea May 06, 2024 3:18 PM [facility]09-03-2024 Telephone encounter Note* Telephone Encounter - Cynthia Ramos MD - 05/05/2024 8:58 AM EDT Letter created. Please mail/fax. Cynthia Ramos MD 05/05/2024 8:58 AM [facility]09-03-2024 Miscellaneous Notes* Telephone Encounter - [...] fax to [facility] at [phone]. Please advise Barbie Alicea May 01, 2024 11:58 AM documented in this encounterLouis Stokes Cleveland Va Medical Center08-30-2024 Telephone encounter Note * Telephone Encounter - Barbie Alicea - 05/01/2024 11:56 AM EDT Patient would like a letter stating dx, and what visual acuity is. Letter is needed for patient to get extra assistance with decreased vision. Once completed fax to [facility] at [phone]. Please advise Barbie Alicea May 01, 2024 11:58 AM [facility]08-26-2024 Telephone encounter Note* Telephone Encounter [...] needed. Modesta Gallardo RN 2024 5:26 PM [facility]08-26-2024 Miscellaneous Notes* Telephone Encounter - [...] RN 2024 5:26 PM documented in this encounterLouis Stokes Cleveland Va [facility] Center08-13-2024 Telephone encounter Note * Telephone Encounter - Emy Hanks - 04/14/2024 1:41 PM EDT Certificate scanned and mailed to patient. [facility]08-13-2024 Miscellaneous Notes* Telephone Encounter - [...] 13, 2024 1:44 PM documented in this encounterLouis Stokes Cleveland Va Medical Center08-13-2024 Telephone encounter Note * Telephone Encounter - Cynthia Ramos MD - 04/14/2024 12:11 PM EDT Done. Cynthia Ramos MD 04/14/2024 12:11 PM [facility]08-12-2024 Telephone encounter Note* Telephone Encounter - Khalida Agarwal - 04/13/2024 1:42 PM EDT Patient states she needs a new certificate of blindness for a handicap placard. Khalida Agarwal April 13, 2024 1:44 PM [facility]08-10-2024 History of Present illness Narrative* Britta Gunn PA - 04/11/2024 12:02 PM EDT This note was created using [employer]. Subjective Allie Rutledge is a 53 year [...] CT MAXILLOFAC/SINUS Comment: normal 05/30/2023: EGD W/O [facility] SPEC VARICIES INJ Comment: Small hiatal hernia, [...] Ramos M.D. No date: S BALLOON,[place] ABLATION [address] ALLERGIES Ultram [Tramadol Hcl], Darvocet A500 [Propoxyphene [...] Maternal Aunt 55 ovarian cancer Heart Son [place] Ovarian cancer Maternal Grandmother Glaucoma No Family [...] ER evaluation. KENA Medrano documented in this encounterLouis Stokes Cleveland [facility] Medical Center08-01-2024 Telephone encounter Note * Telephone Encounter - Lina Murillo LPN - 04/02/2024 8:17 AM EDT Patient notified of below results. Lina Murillo LPN [facility]08-01-2024 Miscellaneous Notes* Telephone Encounter - Lina Murillo LPN - 04/02/2024 8:17 AM EDT Patient notified of below results. Lina Murillo LPN * Telephone Encounter - Lina Murillo LPN - 04/02/2024 8:15 AM EDT ----- Message from Ifeoma Davis MD sent at 04/01/2024 7:07 PM EDT ----- You are negative for hep C and HIV documented in this encounterLouis Stokes Cleveland Va Medical Center08-01-2024 Telephone encounter Note * Telephone Encounter - Lina Murillo LPN - 04/02/2024 8:15 AM EDT ----- Message from Ifeoma Davis MD sent at 04/01/2024 7:07 PM EDT ----- You are negative for hep C and HIV [facility]07-30-2024 History of Present illness Narrative* [...] her everyday life. 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 States she has not had a bleed in her eye at a long time, but at the same time she states she wouldn't see it at this point. Slowly progressive loss of peripheral vision. Patient also reports that she has issueswith calcified joints/arthritis. [place], so she can use the [employer] for going places, [employer]. She is engaged in a lot of activities, and is giving back to the community as much as she can in every way she can. She has a son in [place], and a brother near by. Her eyes [...] extremely active in the community. [place] the [employer] bus to [employer] every Saturday, [...] available full-time. Needs include home health aid, mcc if applicable - says her boyfriend could [...] Had worked with an OT previously through [facility] in [place] previously who assisted with various techniques and [...] Dr. Cynthia Ramos M.D. 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 I have seen and examined this patient. I have discussed the case and the management of this patient's care with the Resident/Fellow/Production Support Developer, if applicable. I also have reviewed and agree with the assessment and plan as stated above and agree with all of its relevant components. Cynthia Ramos MD February 18, 2024 1:35 PM documented in this encounterLouis Stokes Cleveland Va Medical Center06-18-2024 NoteDate of Procedure 02/18/2024. Insurance Underwriter Sales Information Car Jockey: tri. Start time: 12:53 PM. Stop time: 1:04 PM. Notes -- OCT macula 02/18/2024 OD atrophy; OS scar/atrophy, full thickness holeZEISS 01-01-2024 Telephone encounter Note* Telephone Encounter - Calli Gerber APRN.ADMINISTRATIVE INTERN - 01/01/2024 1:16 PM EDT Prempro is prescribed by gynecology Calli Gerber APRN.ADMINISTRATIVE INTERN [facility]05-01-2024 Miscellaneous Notes* Telephone Encounter - Calli Gerber APRN.CNP - 01/01/2024 1:16 PM EDT Prempro is prescribed by gynecology Calli Gerber APRN.ADMINISTRATIVE INTERN * Telephone Encounter - Allie Mcknight LPN [...] you. Allie Mcknight LPN. documented in this encounterLouis Stokes Cleveland Va Medical Center05-01-2024 Telephone encounter Note * Telephone [...] Please advise. Thank you. Allie Mcknight LPN. [facility]04-26-2024 Telephone encounter Note* Telephone Encounter - Tori Morales MA - 12/27/2023 9:04 AM EDT Patient notified, [facility]04-26-2024 Miscellaneous Notes* Telephone Encounter - [...] the Gabapentin rx. She is going to [place] via the bus and was hoping to pick up man rx while she was out. Please advise * Telephone Encounter - Allie Mcknight LPN - 12/25/2023 2:00 PM EDT Patient calling she had MRI of her right shoulder done at [facility]. She does not see Dr Brush until December 30 for possible injection or what treatment he plans to do. Patient was asking for a Gabapentin rx. She had taken it in the past. Patient said she did not have a tear, but not sure how to explain the results. Patient is going to ask [facility] to fax report, She is legally blind so she can not drive, to come to appt with provider right now. Patient uses [facility] for her pharmacy, can get someone to pick up man rx for her. Please advise documented in this encounterLouis Stokes Cleveland Va Medical Center04-26-2024 Telephone encounter Note * Telephone Encounter - David Anna APRN.CNP - 12/27/2023 7:29 AM EDT Gabapentin ordered as requested. Thank you David Anna APRN.CNP [facility]04-25-2024 Telephone encounter Note* Telephone Encounter - Allie Mcknight LPN - 12/26/2023 2:02 PM EDT Patient calling to check status of request for the Gabapentin rx. She is going to [place] via the bus and was hoping to pick up man rx while she was out. Please advise [facility]04-24-2024 Telephone encounter Note* Telephone Encounter - Allie Mcknight LPN - 12/25/2023 2:00 PM EDT Patient calling she had MRI of her right shoulder done at [facility]. She does not see Dr Brush until December 30 for possible injection or what treatment he plans to do. Patient was asking for a Gabapentin rx. She had taken it in the past. Patient said she did not have a tear, but not sure how to explain the results. Patient is going to ask [facility] to fax report, She is legally blind so she can not drive, to come to appt with provider right now. Patient uses [facility] for her pharmacy, can get someone to pick up man rx for her. Please advise [facility]04-23-2024 History of Present illness Narrative* Destiney Pendleton APRN.CNP - 12/24/2023 12:45 PM EDT Allie is a 53 year old who presents for an annual gynecologic exam without complaints. Postmenopausal: ablation 2012- no bleeding HRT use: Yes, prempro Last Pap: 07/03/2019 normal HPV: 07/01/2019 negative History of abnormal pap: Yes Last mammogram: 2023 normal History of abnormal mammogram: No Sexually active: No OB History T0 L3 SAB0 IAB0 Ectopic0 Multiple0 Live Births0 Hydrodynamics Teacher History LMP: Ablation Age at Menarche: Age at First : Age at Menopause: Hydrodynamics Teacher History Comments: Sexual Activity: Not Currently; Male [...] Dr. Cynthia Ramos M.D. S BALLOON,[place] ABLATION [address] FAMILY HISTORY Problem Relation Age of Onset Heart Father Age 61 Heart Maternal Grandfather Cancer Paternal Grandmother Breast Cancer Maternal Aunt 55 ovarian cancer Heart Son [place] Ovarian cancer Maternal Grandmother Glaucoma No Family [...] external genitalia normal, normal Bartholin's glands, urethra, [place]'s glands, no vulvar lesions, no cervical lesions, [...] year or sooner as needed Destiney Pendleton APRN.DEBORAH documented in this encounterLouis Stokes Cleveland [facility] Medical Center03-18-2024 History of Present illness Narrative* [...] Dr. Cynthia Ramos M.D. S BALLOON,UTERINE ABLATION [address] ALLERGIES Ultram [Tramadol Hcl], Darvocet A500 [Propoxyphene [...] mouth once daily.^Disp: ^Rfl: 0 azithromycin (ZITHROMAX Z-SRINIVAS) 250 mg tablet^Take 2 tablets day one, [...] Maternal Aunt 55 ovarian cancer Heart Son [place] Ovarian cancer Maternal Grandmother Glaucoma No Family [...] TABLET Adriana Vidal APRN.DEBORAH documented in this encounterLouis Stokes Cleveland [facility] Center03-13-2024 Miscellaneous Notes* Telephone Encounter - [...] you. Angelica Arreola RN. documented in this encounterLouis Stokes Cleveland Va Medical Center02-23-2024 History of Present illness Narrative* Alessandra Lora MA - 10/25/2023 9:41 AM EST POPULATION HEALTH NAVIGATION OUTREACH Action/I P/C to patient to schedule Medicare Wellness Exam, no answer. Left message for patient to return call. My chart message sent. Patient Identified by Name and : NO Outreach Outcome/Action Unable to reach patient: Left message MyChart message sent Did you use a PCP flex slot to schedule this appointment? N/A Reason for Outreach Care Gap or Scheduling/Wellness visits Payer: Payor: ON LICENSE OF [facility] [employer] AND [employer] [facility] / Plan: [employer] MEDICARE ADVANTAGE HMO / [...] 25, 2023 9:44 AM documented in this encounterLouis Stokes Cleveland Va Medical Center02-09-2024 Miscellaneous Notes* Letter - Coordinator, Mammography - 10/11/2023 1:18 PM EST October 14, 2023 PID: [id number] Allie Rutledge [address] [place] [address] Dear Ms. Rutledge, We are pleased to [...] report will be kept on file at [facility] as part of your permanent medical record and are available for your continuing care. Thank you for allowing us to help in meeting your health care needs. Sincerely, Dr. Muñiz Interpreting Radiologist [facility] (Normal over 40) documented in this encounterLouis Stokes Cleveland Va Medical Center02-08-2024 History of Present illness Narrative* [...] PATIENT PRESENTS WITH AN IMPLANTABLE OR ATTACHED DOLL REPAIRER: No RADIOLOGY DEPARTMENT: Mammography PERIPHERAL IV DATA: Not applicable SIGNED BY: Rubin Alicea October 10, 2023 1:08 PM documented in this encounterLouis Stokes Cleveland Va Medical Center02-06-2024 Miscellaneous Notes* Telephone Encounter - Dara Valdez RN - 10/08/2023 10:43 AM EST Cande SOTOlowerator operator at [facility] calls to report that completed health risk assessment care plan update was done and can be reviewed in availability portal. Cande states that provider can attend care team meeting by calling Cande. 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 I have seen and examined this patient. I have discussed the case and the management of this patient's care with the Resident/Fellow/Production Support Developer, if applicable. I also have reviewed and agree with the assessment and plan as stated above and agree with all of its relevant components. Cynthia Ramos MD August 16, 2023 7:06 PM documented in this encounterLouis Stokes Cleveland [facility] Center11-21-2023 Miscellaneous Notes* Telephone Encounter - Celeste Haywood - 07/23/2023 1:27 PM EST Patient has [...] notify patient. Amy Adams documented in this encounterLouis Stokes Cleveland Va Medical Center09-28-2023 Nurse Note* Mel Garcia RN - 05/30/2023 2:[address] Connelly at bedside to discuss procedure/findings with patient and her friend. [facility]09-28-2023 Nurse Note* Mel Garcia RN - 05/30/2023 2:[address] Connelly at bedside to discuss procedure/findings with patient and her friend. documented in this encounterLouis Stokes Cleveland Va Medical Center09-28-2023 Anesthesiology Preoperative evaluation and management note* Anesthesia PreOp - Andry Connelly MD - 05/30/2023 1:00 PM EDT HISTORY AND PHYSICAL Allie Dianety, 53 year old female Current history and [...] Moderate Additional Comments: None Andry Connelly MD [facility] Work Phone: 1(688) 708-457809-28-2023 Miscellaneous Notes* Anesthesia PreOp - Andry Connelly [...] None Andry Connelly MD documented in this encounterLouis Stokes Cleveland Va Medical Center09-19-2023 History of Present illness Narrative* [...] her everyday life. 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 States she has not had a bleed in her eye at a long time, but at the same time she states she wouldn't see it at this point. Slowly progressive loss of peripheral vision. Patient also reports that she has issueswith calcified joints/arthritis. Just sold her home here in [place] and moved to [place] with her boyfriend, and her boyfriend doesn't feel like she's entirely safe in her day to day activities. Patient called [employer] and they advised that she have a home health order placed and faxed over to them-reports she's not sure all that she can be helped with. She is extremely active in the community. Takes the [employer] bus to [employer] every Saturday, [...] available full-time. Needs include home health aid, mcc if applicable - says her boyfriend could [...] Had worked with an OT previously through [employer] in [place] previously who assisted with various techniques and [...] Dr. Cynthia Ramos M.D. 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 Trigger finger, unspecified finger, unspecified laterality - ICD9: 727.03, ICD10: M65.30 Refills provided on meloxicam per pt request - [facility] 4. Mixed hyperlipidemia - ICD9: [...] plan. [place] Avalos PA-C documented in this encounterLouis Stokes Cleveland Va Medical Center09-06-2023 Miscellaneous Notes* Telephone Encounter - Sita Mauricio LPN - 05/08/2023 9:25 AM EDT PATIENT NOTIFIED OF SAME. * Telephone Encounter - Ariadne Zaidi APRN.CNP - 05/07/2023 4:28 PM EDT Printed, will sign, please call patient to pick up man. Thanks! * Telephone Encounter - Lina Murillo LPN - 05/07/2023 1:16 PM EDT Patient is needing to renew her handicapped placard, it expires this month. Please call when approved and ready for pickup. Lina Murillo LPN documented in this encounterLouis Stokes Cleveland Va Medical Center09-01-2023 Miscellaneous Notes* Telephone Encounter - [...] notify patient. Marnie Adams documented in this encounterLouis Stokes Cleveland Va Medical Center08-29-2023 Instructions* Patient Instructions* Cande Pozo [...] If you do not have a responsible food mobile driver (family member or friend) withyou to take you home, your exam cannot be done with sedation and will be cancelled. Please bring a list of all of your current medications, including any Tiur-mgd-Oqfydcd medications with you. Medications If you take [...] your exam. 2 08/2019 documented in this encounterLouis Stokes Cleveland Va Medical Center08-29-2023 History of Present illness Narrative* [...] Abs Lymph 1.00 - 4.00 k/uL 1.42 Seward% % 9.8 Abs Seward <0.87 k/uL 0.58 Eosin% % 3.1 Abs [...] Dr. Cynthia Ramos M.D. [place] [address] Allergies: ALLERGIES Allergen Reactions Ultram [Tramadol Hc* [...] Maternal Aunt 55 ovarian cancer Heart Son [place] Ovarian cancer Maternal Grandmother Glaucoma No Family [...] which included preparing to see the patient, nrtd-vi-[id number] patient care, completing clinical documentation, obtaining and/or reviewing separately obtained history, performing a medically appropriate examination, counseling and educating the pat ient/family/caregiver, ordering medications, tests, or procedures, communicating with other HCPs (not separately reported), independently interpreting results (not separately reported), communicatingresults to the patient/family/caregiver, and care coordination (not separately reported). Cande Pozo PA-C April 30, 2023 1:23 PM documented in this encounterLouis Stokes Cleveland Va Medical Center08-24-2023 History of Present illness Narrative* Massimo Hicks MD - 04/25/2023 2:12 PM EDT Massimo Hicks MD Department of Orthopaedics Orthopaedics [address] [facility] [address] Dept: [phone] Dept April 25, 2023 CHIEF COMPLAINT: Established [...] Dr. Cynthia Ramos M.D. [place] [address] Medications: Current Outpatient Medications Medication Sig keTORolac [...] anxiety) Massimo Hicks MD documented in this encounterLouis Stokes Cleveland Va Medical Center08-14-2023 Miscellaneous Notes* Telephone Encounter - [...] cost. Starla Mckeon LPN documented in this encounterLouis Stokes Cleveland Va Medical Center06-20-2023 History of Present illness Narrative* [...] management of this patient's care with the Resident/Fellow/Production Support Developer, if applicable. I also have reviewed and agree with the assessment and plan as stated above and agree with all of its relevant components. Cynthia Ramos MD February 19, 2023 3:11 PM documented in this encounterLouis Stokes Cleveland Va Medical Center05-30-2023 Miscellaneous Notes* Telephone Encounter - Celeste Cardona JOLIE - 01/29/2023 3:17 PM EDT Patient has [...] you. Celeste Cardona LPN documented in this encounterLouis Stokes Cleveland Va Medical Center05-02-2023 Discharge summary Author Sharifa Morrissey [facility] January 01, 2023 12:18pm Note Date/Time January 01, 2023 12:18p m [facility] Occupational Therapy [facility] [address] [place] [address] [address] [place] [address] / REHABILITATION SERVICES DISCHARGE SUMMARY MR#: [id number] Acct: [id number] Name: ALLIE RUTLEDGE Rep #: [id number] : 1970 52 From: Sharifa Morrissey OTR/Yonathan, CHT Referring : Status: REG RCR Eval Date: Discharge Date: It has been my pleasure to treat ALLIE RUTLEDGE under orders from TAINA PATINO, for the diagnosis of right RF trigger finger and left MF trigger finger for a total of 4 visit(s). Please see the following information for a summary of their discharge status. % Improvement: 80 Objective/Function: right woodwind instruments inspector strength 50#. left woodwind instruments inspector strength 40# (US completed previous to woodwind instruments inspector). right RF PIP -5/45. left MF PIP -15/50 Patient Goals: Regain Mobility, Regain Strength, Decrease Pain, Use Hand/Wrist/Arm Normally Again Goal:Daily scar massage when approriate: Yes Goal:ROM equal to unaffected hand: Yes Goal:Bookkeeping Clerk/Pinch strength at least 75% of unaffected hand: [...] please fell free to call me at [phone]. Thank you for the referral of this patient. Sincerely, Sharifa Morrissey, OTR/L, CHT <Electronically signed by Sharifa Morrissey OTR/L, CHT> 01/01/23 6782 CC: Dr. Ifeoma Davis MD; TAINA PATINO ~ MK Signed [facility] Work Phone: 1(132) 716-567204-12-2023 Miscellaneous Notes* Telephone Encounter - Celeste Cardona [...] Cardona LPN * Telephone Encounter - Melly Adams - 12/12/2022 9:04 AM EDT Patient has been identified by name and date of : Yes Requested Prescriptions Pending Prescriptions Disp Refills traZODone (DESYREL) 50 mg tablet 90 tablet 3 Sig: Take 1 tablet by mouth daily at bedtime. traZODone (DESYREL) 50 mg tablet 14 tablet 0 Sig: Take 1 tablet by mouth daily at bedtime. RX INSTRUCTIONS: Patient needs 14 days to [facility] today - she is going today to [facility] and since she cannot drive due to legally blind, please send JUVE so she can pick up man while at [facility] this morning. Please send 90 days to [facility]. Please call patient once 14 days is sent to [facility]. Patient aware RX will be sent to pharmacy. No need to notify patient. Patient aware RX escripted to mail away pharmacy. No need to notify patient. Melly Prado Pss' documented in this encounterLouis Stokes Cleveland Va Medical Center04-04-2023 Instructions* Patient Instructions* Cynthia Ramos MD - 12/04/2022 11:15 AM EDT Continue Prednisolone (pink/white) 1 drop LEFT eye 4 x daily Continue Ketorolac (saunders) 1 drop LEFT eye 4 x daily OK to use refresh or gel drop documented in this encounterLouis Stokes Cleveland Va Medical Center04-04-2023 History of Present illness Narrative* [...] management of this patient's care with the Resident/Fellow/Production Support Developer, if applicable. I also have reviewed and agree with the assessment and plan as stated above and agree with all of its relevant components. Cynthia Ramos MD December 04, 2022 11:14 AM documented in this encounterLouis Stokes Cleveland Va Medical Center03-23-2023 Instructions* Patient Instructions* Cynthia Ramos MD - 11/22/2022 12:23 PM EDT STOP Polymyxin trimethoprim (clear/white) Continue Prednisolone (pink/white) 1 drop LEFT eye 4 x daily Continue Ketorolac (saunders) 1 drop LEFT eye 4 x daily OK to use refresh OK to stop documented in this encounterLouis Stokes Cleveland Va Medical Center03-23-2023 History of Present illness Narrative* [...] management of this patient's care with the Resident/Fellow/Production Support Developer, if applicable. I also have reviewed and [...] management of this patient's care with the Resident/Fellow/Production Support Developer, if applicable. I also have reviewed and agree with the assessment and plan as stated above and agree with all of its relevant components. Cynthia Ramos MD September 25, 2022 3:18 PM documented in this encounterLouis Stokes Cleveland Va Medical Center03-20-2023 Miscellaneous Notes* Telephone Encounter - Henrik Chen MD - 11/19/2022 6:38 PM EDT Call from Allie Rutledge via answering service on 11/17/2022. At [...] Saturday evening dileep seen. She lives in [place] and does not have transportation available. We discussed being seen at the ED for evaluation and potential evaluation by an montessori preschool teacher from [facility]. I advised that if she is not seen in the ED on 11/18/2022 that she either follow-up with Dr. Torres in the [facility] office or contact [facility] to be seen there. She has seen doctors at that office in the past. Henrik Chen MD documented in this encounterLouis Stokes Cleveland Va Medical Center03-20-2023 History of Present illness Narrative* [...] 19, 2022 3:49 PM documented in this encounterLouis Stokes Cleveland Va Medical Center03-20-2023 Miscellaneous Notes* Telephone Encounter - [...] develops new flashes or floaters. As the [place] doctor discussed with her, this can sometimes occur and we can often treat it with alaser in the office. We can discuss at her next appointment. Cynthia Ramos MD 11/19/2022 3:31 PM * Telephone Encounter - Khalida Agarwal - 11/19/2022 9:46 AM EDT Received office notes from [place]. Patient was seen on 11/18 at [facility] regarding abnormal pupil and hemorrhage [...] and she was also seen at the [place] [facility]. She states that the doctor at that office removed eye patch and noticed a cosmetic issuewhere vitreous gel landed below pupil. I asked patient to have [place] fax over their notes so I can [...] 19, 2022 8:36 AM documented in this encounterLouis Stokes Cleveland Va Medical Center03-20-2023 History of Present illness Narrative* Taina Patino PA-C - 11/19/2022 2:59 PM EDT Taina Patino PA-C Department of Orthopaedics Orthopaedics [address] [facility] [address] Dept: [phone] Dept November 19, 2022 CHIEF COMPLAINT: Established [...] for OT was placed and faxed to [facility]. We discussed proper hand washing, no soaking [...] [Hydrocodone-Acetaminophen] This note was partially generated using Gull[employer] voice recognition system, and there may be [...] site. Alis Eid LPN documented in this encounterLouis Stokes Cleveland Va Medical Center03-17-2023 Instructions* Patient Instructions* Cynthia Ramos [...] Shadow in peripheral vision documented in this encounterLouis Stokes Cleveland Va Medical Center03-17-2023 History of Present illness Narrative* [...] management of this patient's care with the Resident/Fellow/Production Support Developer, if applicable. I also have reviewed and [...] management of this patient's care with the Resident/Fellow/Production Support Developer, if applicable. I also have reviewed and agree with the assessment and plan as stated above and agree with all of its relevant components. Cynthia Ramos MD September 25, 2022 3:18 PM documented in this encounterLouis Stokes Cleveland Va Medical Center03-16-2023 History of Past illness Narrative* Problem Noted Date Resolved Date Nuclear senile cataract of left eye 11/15/2022 11/15/2022 Combined 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 06/25/2022 06/25/2022 Photopsia 06/25/2022 06/25/2022 documented as of this encounter (statuses as of 11/16/2022) [facility]03-16-2023 History of Past illness Narrative* Problem Noted Date Resolved Date Nuclear senile cataract of left eye 11/15/2022 11/15/2022 Combined 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 06/25/2022 06/25/2022 Photopsia 06/25/2022 06/25/2022 documented as of this encounter (statuses as of 11/19/2022) [facility]03-[facility] History of Past illness Narrative* Problem Noted Date Resolved Date Nuclear senile cataract of left eye 11/15/2022 11/15/2022 Combined 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 06/25/2022 06/25/2022 Photopsia 06/25/2022 06/25/2022 documented as of this encounter (statuses as of 11/20/2022) [facility]03-[facility] of Past illness Narrative* Problem Noted Date Resolved Date Nuclear senile cataract of left eye 11/15/2022 11/15/2022 Combined 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 06/25/2022 06/25/2022 Photopsia 06/25/2022 06/25/2022 documented as of this encounter (statuses as of 11/20/2022) [facility] History of Past illness Narrative* Problem Noted Date Resolved Date Nuclear senile cataract of left eye 11/15/2022 11/15/2022 Combined 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 06/25/2022 06/25/2022 Photopsia 06/25/2022 06/25/2022 documented as of this encounter (statuses as of 11/26/2022) [facility] of Past illness Narrative* Problem Noted Date Resolved Date Nuclear senile cataract of left eye 11/15/2022 11/15/2022 Combined 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 06/25/2022 06/25/2022 Photopsia 06/25/2022 06/25/2022 documented as of this encounter (statuses as of 12/02/2022) [facility] of Past illness Narrative* Problem Noted Date Resolved Date Nuclear senile cataract of left eye 11/15/2022 11/15/2022 Combined 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 06/25/2022 06/25/2022 Photopsia 06/25/2022 06/25/2022 documented as of this encounter (statuses as of 12/05/2022) [facility] of Past illness Narrative* Problem Noted Date Resolved Date Nuclear senile cataract of left eye 11/15/2022 11/15/2022 Combined 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 06/25/2022 06/25/2022 Photopsia 06/25/2022 06/25/2022 documented as of this encounter (statuses as of 12/13/2022) [facility] of Past illness Narrative* [...] of this encounter (statuses as of 01/30/2023) [facility]03-[facility] History of Past illness Narrative* [...] of this encounter (statuses as of 02/21/2023) [facility] History of Past illness Narrative* [...] of this encounter (statuses as of 04/16/2023) [facility] History of Past illness Narrative* [...] of this encounter (statuses as of 04/30/2023) [facility] History of Past illness Narrative* [...] of this encounter (statuses as of 05/03/2023) [facility]03-[facility] History of Past illness Narrative* [...] of this encounter (statuses as of 05/08/2023) [facility]03-[facility] History of Past illness Narrative* [...] of this encounter (statuses as of 05/23/2023) [facility]03-[facility] History of Past illness Narrative* [...] of this encounter (statuses as of 05/28/2023) [facility]03-[facility] History of Past illness Narrative* [...] of this encounter (statuses as of 06/25/2023) [facility]03-[facility] History of Past illness Narrative* [...] of this encounter (statuses as of 07/24/2023) [facility] History of Past illness Narrative* [...] of this encounter (statuses as of 09/02/2023) [facility] of Past illness Narrative* [...] of this encounter (statuses as of 10/04/2023) [facility] of Past illness Narrative* [...] of this encounter (statuses as of 10/08/2023) [facility] of Past illness Narrative* [...] of this encounter (statuses as of 10/11/2023) [facility] of Past illness Narrative* [...] of this encounter (statuses as of 10/15/2023) [facility] of Past illness Narrative* [...] of this encounter (statuses as of 10/25/2023) [facility] of Past illness Narrative* [...] of this encounter (statuses as of 11/13/2023) [facility] of Past illness Narrative* [...] of this encounter (statuses as of 11/18/2023) [facility] of Past illness Narrative* [...] of this encounter (statuses as of 05/22/2023) [facility]03-14-2023 Miscellaneous Notes* Telephone Encounter - Mauricio Bahena - 11/13/2022 3:36 PM EDT Called and informed patient to arrive at [address] [place] [address] at 10:45 am for 11/15/22 surgerywith Cynthia Ramos MD. Also reminded patient to refrain from eating or drinking for 8 hours prior to arrival for surgery, and to begin eyedrops in the left eye on 11/13/22. Patient states understanding and is agreeable. documented in this encounterLouis Stokes Cleveland Va Medical Center03-06-2023 Miscellaneous Notes* Telephone Encounter - Chana Mao Ma - 11/05/2022 11:19 AM EST I called and spoke with patient. She will pick up man more hibiclens. Packet left at [facility]. * Telephone Encounter - Natasha Jurado LPN - 11/05/2022 10:28 AM EST Patient called. Verified name and date of . Patient states she has surgery scheduled Saturdayand misplaced the packet of hand janitor cleaner needed for the day of surgery. Can patient pick up man anotherpacket? Natasha Jurado LPN documented in this encounterLouis Stokes Cleveland Va [facility] Center03-03-2023 Miscellaneous Notes* Telephone Encounter - [...] phone call back Please advise patient at [phone]. Thank you Mary Cochran LPN documented in this encounterLouis Stokes Cleveland Va [facility] Center03-01-2023 NoteHNO ID: [id number] Author: Michelle Perez, OT/L Service: ? Author [...] Planned: 6 Planned Treatment Interventions: Therapeutic exercise (11949), Self-mcfp management (87402), Patient/Family/Caregiver Education, Functional training, Community / Work [...] COMPLETED. Skilled Intervention: Patient education as noted. Self-Nursing Home Management: 1: COOKING: provided her with black [...] procedure. She is pursuing financial assistance from [employer] [place] and has the letter with equipment recommendations [...] to her. 6: TO INCREASE PARTICIPATION WITH LATTER-DAY SERVICES:- trialed the [employer] MAX TV GLASSES and was able to pick out signs, traffic, people outside when trialing same. Reviewed cleaning, and care instructions for taking care of them. She is wanting to borrow these for watching tv, seeing screens at her gnosticism to increase active participation with same. She id understanding instructions and accurately adjusted the focal distance with the lenses after practicing with same. 7: PROCURING OPTICAL AIDS/DEVICES: as id. above, did review her paperwork and recommendations made: *contact [facility] services in [facility] to verify need of needing two written estimates;*if she does require two estimates then she was provided with another agency to assist w/ selling the recommended devices (MAGNIFIERS AND MORE) and (more content not included)...[facility]03-01-2023 History of Present illness Narrative * Michelle Perez OT/L - 10/31/2022 9:45 AM EST Episode [...] Planned: 6 Planned Treatment Interventions: Therapeutic exercise (20701), Self-mcfp management (73866), Patient/Family/Caregiver Education, Functional training, Community / Work [...] COMPLETED. Skilled Intervention: Patient education as noted. Self-Nursing Home Management: 1: COOKING: provided her with black [...] procedure. She is pursuing financial assistance from [employer] [place] and has the letter with equipment recommendations [...] to her. 6: TO INCREASE PARTICIPATION WITH LATTER-DAY SERVICES:- trialed the [employer] TV GLASSES and wasable to pick out signs, traffic, people outside when trialing same. Reviewed cleaning, and care instructions for taking care of them. She is wanting to borrow these for watching tv, seeing screens ather gnosticism to increase active participation with same. She id understanding instructions and accurately adjusted the focal distance with the lenses after practicing with same. 7: PROCURING OPTICAL AIDS/DEVICES: as id. above, did review her paperwork and recommendations made:*contact [employer] services in [facility] to verify need of needing [...] Planned: 6 Planned Treatment Interventions: Therapeutic exercise (00853), Self-mcfp management (30267), Patient/Family/Caregiver Education, Functional training, Community / Work [...] 77 Michelle Perez OT/L documented in this encounterLouis Stokes Cleveland [facility] Medical Center02-24-2023 Miscellaneous Notes* Telephone Encounter - Viviana Cochran - 10/26/2022 9:40 AM EST Patient left message in surgery scheduling to reschedule 10/29/22 IOL measurements (ascan). Called patient and offered 11/08/22 at 8:30 am. Patient declines due to has hand surgery the day before. States she will arrange transportation with a family member (called [facility] too late to set up through them). Will keep 10/29/22 as scheduled. documented in this encounterLouis Stokes Cleveland [facility] Center02-21-2023 History of Present illness Narrative* [...] 23, 2022 4:42 PM documented in this encounterLouis Stokes Cleveland [facility] Center02-15-2023 NoteHNO ID: [id number] Author: Michelle Perez, OT/L Service: ? Author [...] OBJECTIVE MEASURES WITH LEVEL OF FUNCTION: TREATMENT: Self-Nursing Home Management: 1: FUNCTIONAL COMMUNICATION TRAINING: reading recipe/grocery [...] level with same. She was provided needle ruby software developer, and pre threaded needles with colored thread [...] clips. 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 Provided instruction and education and demonstration and she was familiar w/ the filament needle ruby software developer presented. 7: Eating neatly: on the self [...] if needed in t (more content not included)...[facility] 10-17-2022 History of Present illness Narrative* [...] OBJECTIVE MEASURES WITH LEVEL OF FUNCTION: TREATMENT: Self-Nursing Home Management: 1: FUNCTIONAL COMMUNICATION TRAINING: reading recipe/grocery [...] level with same. She was provided needle ruby software developer, and pre threaded needles with colored thread [...] her during previous treatment session. Did trial the[employer] EMILIANO NOIR 10 fit over filters and [...] clips. 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 Provided instruction and education and demonstration and she was familiar w/ the filament needle ruby software developer presented. 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 TO BORROW THE LIGHT EMILIANO FIT OVER FILTERS. WAS ISSUED ADDITIONAL BOLD LINE PAPER TABLETS, SOCK CLIPS, NEEDLE DIVIDEND DEPOSIT VOUCHER CLERK, SELF THREADED NEEDLES AND A LED FLASHLIGHT. [...] 70 Michelle Perez OT/L documented in this encounterLouis Stokes Cleveland Va Medical Center02-14-2023 History of Present illness Narrative* [...] EXTRACAP,INSERT LENS Right 06/25/2022 [place] [address] FAMILY HISTORY Problem Relation Age of Onset Heart Father Age 61 Heart Maternal Grandfather Cancer Paternal Grandmother Breast Cancer Maternal Aunt 55 ovarian cancer Heart Son [place] Ovarian cancer Maternal Grandmother Glaucoma No Family [...] remaining Ifeoma Davis MD documented in this encounterLouis Stokes Cleveland [facility] Center02-07-2023 History of Present illness Narrative* Burnilda Torres, RT(R) - 10/09/2022 12:50 PM EST Radiology [...] 09, 2022 12:50 PM documented in this encounterLouis Stokes Cleveland Va Medical Center02-02-2023 Miscellaneous Notes* Telephone Encounter - Clint Brennan RN - 10/04/2022 8:15 AM EST Patient reports she is picking up the Rx today. * Telephone Encounter - Ifeoma Davis MD - 10/03/2022 7:58 PM EST Called in z srinivas for the patient Regards, Ifeoma Davis MD * Telephone Encounter - Allie Mcknight LPN - 10/02/2022 10:26 AM EST Patient calling cancelled her appt today for her physical since she is sick, she felt to weak to come in. Patient said she has sinus infection, headache, congestion one side of her nose, using salinenasal spray, scratchy throat, post nasal drainage, yellow secretions when she blows. Patient said she can not drive and can have friend pick up man rx. Patient is asking for [facility] to be [facility] please. Please advise documented in this encounterLouis Stokes Cleveland [facility] Center01-31-2023 Miscellaneous Notes* Telephone Encounter - Chana Mao Ma - 10/02/2022 8:44 AM EST Surgery has been scheduled as requested. * Telephone Encounter - Chana Mao Ma - 10/01/2022 4:00 PM EST Surgical request completed for right ring and left middle trigger finger releases at [facility] on 11/02/2022. Post op appointments have been scheduled and mailed to patient. documented in this encounterLouis Stokes Cleveland Va Medical Center01-30-2023 History of Present illness Narrative* Massimo Hicks MD - 10/01/2022 2:19 PM EST Massimo Hicks MD Department of Orthopaedics Orthopaedics [facility] [id number] Dept: [phone] Dept October 01, 2022 CHIEF COMPLAINT: Established [...] EXTRACAP,INSERT LENS Right 06/25/2022 S [place] [id number] Medications: Current Outpatient Medications Medication Sig mometasone [...] cough. (Patient not taking: Reported on 10/01/2022) Oleg gamble No current facility-administered medications for this visit. [...] anxiety) Massimo Hicks MD documented in this encounterLouis Stokes Cleveland Va Medical Center01-30-2023 History of Present illness Narrative* Laura Pimentel RT(R) - 10/01/2022 1:30 PM EST Radiology [...] 01, 2022 2:16 PM documented in this encounterLouis Stokes Cleveland Va Medical Center01-27-2023 Miscellaneous Notes* Letter - Mammography Coordinator - 09/28/2022 3:14 PM EST October 01, 2022 PID: [id number] Allie Rutledge [address] [place] [address] Dear Ms. Rutledge, Your recent breast imaging exam on 09/27/2022 showed a possible finding that requires additional imaging studies for a complete evaluation. Most such findings are probably benign (not cancer). If you have a healthcare provider who ordered/prescribed your screening mammogram: Please call [phone] or [phone]: [phone] to schedule an appointment for your additional [...] and reports are kept on file at [facility] as part of your permanent medical record, and are available for your continuing care. Thank you for allowing us to help in meeting your health care needs. Sincerely, Dr. Osei Interpreting Radiologist [facility] (Additional imaging) documented in this encounterLouis Stokes Cleveland Va Medical Center01-26-2023 History of Present illness Narrative* Kimberley Salmeron, Mammo Tech - 09/27/2022 1:10 PM EST [...] DATA: Not applicable SIGNED BY: Kimberley Salmeron Androcial September 27, 2022 1:05 PM documented in this encounterLouis Stokes Cleveland Va Medical Center01-24-2023 History of Present illness Narrative* [...] patient was offered a surgery/procedure at a [facility] facility. The surgeon/proceduralist and patient [...] management of this patient's care with the Resident/Fellow/Production Support Developer, if applicable. I also have reviewed and [...] management of this patient's care with the Resident/Fellow/Production Support Developer, if applicable. I also have reviewed and agree with the assessment and plan as stated above and agree with all of its relevant components. Cynthia Ramos MD September 25, 2022 3:18 PM documented in this encounterLouis Stokes Cleveland Va Medical Center01-18-2023 NoteHNO ID: [id number] Author: Michelle Perez OT/L Service: ? Author [...] Planned: 6 Planned Treatment Interventions: Therapeutic exercise (99168);Self-mcfp management (27244);Patient/Family/Caregiver Education;Functional training;Community / Work Reintegration PLAN FOR [...] Treatment: (was seen by low vision referring sizing sponger, Dr. Mason recently. 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[employer]) Recreation / Current Exercise: family, watching [employer] cars, volunteering, gnosticism Home Environment Patient Lives With: (alone but [...] to pay bills onl (more content not included)...[facility]01-18-2023 History of Present illness Narrative* Michelle Perez OT/Yonathan - 09/19/2022 12:33 PM EST Episode Visit [...] Planned: 6 Planned Treatment Interventions: Therapeutic exercise (61401);Self-mcfp management (59698);Patient/Family/Caregiver Education;Functional training;Community / Work Reintegration PLAN FOR [...] Treatment: (was seen by low vision referring sizing sponger, Dr. Mason recently. 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 [...] REVEALS: Recalling report from referring low vision sizing sponger's report: RIGHT EYE: 20/250 DISTANCE AND NEAR 6.3M LEFT EYE: CF @2', and near 1.6M Both Near: 1.6M. Patient is waiting for LEFT eye cataract extraction and currently is not able to wear corrective glasses. Patient id. Losing her prescription sunglasses and only has wrap around dark saunders filters. Pt. Is applying for financial resources for recommended optical aids/devices from her local [employer] in [facility] but needs prices from two providers and was provided contact information from[employer] and More to assist with devices that referring low vision sizing sponger (Dr. Mason) provided to her at time of her assessment. PSYCHOSOCIAL ASSESSMENT: Alert & Oriented X 4. Affect: appropriate, reasonably positive mood , and hyper verbal/tangential. Memory: no gross deficits observed. Concentration: WFL. Language: verbal and reading w/ appropriate use of adaptive equipment. Fund of Knowledge: High Patient Reports her: Motivation is High. Activity level is High. [place] for ADL is: Average. Life satisfaction is: [...] Education/Teach Back: States/Identifies;Return Demonstration TREATMENT: Evaluation Evaluation Self-Nursing Home Management: 1: GROOMING: she was able to [...] needed. 6: COMMUNITY SUPPORT/RESOURCES: provided her with [facility] resources for support ([employer], AND [employer]) and she is already set up with [...] 75 Michelle Perez OT/L documented in this encounterLouis Stokes Cleveland Va Medical Center01-18-2023 Miscellaneous Notes* Telephone Encounter - Barbie Deanne Pss - 09/19/2022 9:50 AM EST Per Ilsa at Occupational Therapy she does not help with white tsai/mobile training. She states shesent you a message. She states she will call patient and explain this to her and see if she still wants to come in for her appointment today. documented in this encounterLouis Stokes Cleveland Va Medical Center12-15-2022 History of Present illness Narrative* [...] face time was 75 minutes. Signature: Wolf Mason, OD Date: 08/16/2022 Time: 1:45 PM Dilation not repeated today, recently performed by referring doctor. Continue care as directed by referring doctor. Return as needed LV exam documented in this encounterLouis Stokes Cleveland Va Medical Center12-13-2022 Miscellaneous Notes* Telephone Encounter - [...] Anna APRN.CNP * Telephone Encounter - Lea Hicks Pss [...] advise. Lea Hicks Pss documented in this encounterLouis Stokes Cleveland Va Medical Center11-22-2022 History of Present illness Narrative* Jonathon Johnson [...] components. Jonathon Johnson MD documented in this encounterLouis Stokes Cleveland Va Medical Center11-22-2022 Miscellaneous Notes* Telephone Encounter - Aleksandra Min LPN - 07/24/2022 11:21 AM EST Patient notified. Verbalized understanding. * Telephone Encounter - Ifeoma Davis MD - 07/23/2022 6:53 PM EST I sent this to Ifeoma Hinson MD * Telephone Encounter - Melly Prado Pss - 07/23/2022 12:10 PM EST Allie Rutledge is calling Ifeoma Davis MD today she stated she saw [facility] on 06/25/22, the provider told her [...] calling: self Call patient at: at home [phone] (home) [phone] (cell) Was an appointment scheduled: No Closing statement: Results or non-symptom based questions: Thank you for calling [facility], your call will be returned within the next business day. Melly Prado Pss documented in this encounterLouis Stokes Cleveland Va Medical Center11-21-2022 Miscellaneous Notes* Telephone Encounter - [...] LPN * Telephone Encounter - Melly Prado [facility] - 07/23/2022 12:02 PM EST Patient has [...] No need to notify patient. Melly Prado Pss documented in this encounterLouis Stokes Cleveland Va Medical Center11-21-2022 Miscellaneous Notes* Telephone Encounter - [...] No need to notify patient. Melly Prado Pss documented in this encounterLouis Stokes Cleveland Va Medical Center11-03-2022 Miscellaneous Notes* Telephone Encounter - Dara Valdez RN - 07/05/2022 8:41 AM EDT Called patient and notified that provider sent medication to [facility]. Patient voiced understanding. Dara Valdez RN * Telephone Encounter - Clint Brennan RN - 07/04/2022 4:11 PM EDT Patient asking pcp to send Rx to [facility]. See message below. * Telephone Encounter - [...] advise, Dara Valdez RN documented in this encounterLouis Stokes Cleveland Va Medical Center11-01-2022 Instructions* Patient Instructions* Jonathon Johnson MD - 07/03/2022 1:14 PM EDT -prednisolone (white or pink cap) four times a day x 1 week, then three times a day for 1 week, then twice a day for 1 week, then once a day for 1 week, then stop -vigamox (mora cap) four times a day for 1 week, then stop documented in this encounterLouis Stokes Cleveland Va Medical Center11-01-2022 History of Present illness Narrative* Jonathon Johnson [...] components. Jonathon Johnson MD documented in this encounterLouis Stokes Cleveland Va Medical Center10-28-2022 History of Present illness Narrative* [...] 29, 2022 12:01 PM documented in this encounterLouis Stokes Cleveland Va Medical Center10-28-2022 Miscellaneous Notes* Telephone Encounter - [...] of that eye. She was seen in [facility] and he felt it was viral. Dr. Johnson is asking that she be given something to treat the cough and patient is requesting an antibiotic such as Z-pk or levaquin. Please review and advise. documented in this encounterLouis Stokes Cleveland Va Medical Center10-28-2022 Miscellaneous Notes* Telephone Encounter - Janet Rivero RN - 06/29/2022 8:59 AM EDT Patient has been scheduled for today 06/29/2022 at the [facility] with Dr. Torres. Janet Rivero RN June 29, 2022 8:59 AM * Telephone Encounter - Janet Rivero RN - 06/29/2022 7:35 AM EDT Received message via Secure Chat from Dr. Johnson that due to patient living in [place] that she could see Dr. Torres for a dilated exam as well. If patient wants seen by Dr. Johnson he is [facility]. Janet Rivero RN June 29, 2022 7:36 AM * Telephone Encounter - Janet Rivero RN - 06/28/2022 6:07 PM EDT Discussed patient with Dr. Johnson. He advised for patient to be seen on 06/29/[address] Ramos. Routed to [facility] staff to schedule. Janet Rivero RN June [...] can do to help. documented in this encounterLouis Stokes Cleveland Va Medical Center10-25-2022 Instructions* Patient Instructions* Jonathon Johnson MD - 06/26/2022 1:40 PM EDT -prednisolone every two hours right eye -vigamox four times a day right eye -geldrops left eye -ointment at bedtime left eye documented in this encounterLouis Stokes Cleveland Va Medical Center10-25-2022 History of Present illness Narrative* Jonathon Johnson [...] components. Jonathon Johnson MD documented in this encounterLouis Stokes Cleveland Va Medical Center10-24-2022 History of Past illness Narrative* Problem Noted Date Resolved Date Combined 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 06/25/2022 06/25/2022 Photopsia 06/25/2022 06/25/2022 documented as of this encounter (statuses as of 06/25/2022) [facility] of Past illness Narrative* Problem Noted Date Resolved Date Combined 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 06/25/2022 06/25/2022 Photopsia 06/25/2022 06/25/2022 documented as of this encounter (statuses as of 06/26/2022) [facility] of Past illness Narrative* Problem Noted Date Resolved Date Combined 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 06/25/2022 06/25/2022 Photopsia 06/25/2022 06/25/2022 documented as of this encounter (statuses as of 06/26/2022) [facility] of [facility] illness Narrative* Problem Noted Date Resolved Date Combined 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 06/25/2022 06/25/2022 Photopsia 06/25/2022 06/25/2022 documented as of this encounter (statuses as of 06/29/2022) [facility] of [facility] illness Narrative* Problem Noted Date Resolved Date Combined 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 06/25/2022 06/25/2022 Photopsia 06/25/2022 06/25/2022 documented as of this encounter (statuses as of 06/29/2022) [facility] of [facility] illness Narrative* Problem Noted Date Resolved Date Combined 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 06/25/2022 06/25/2022 Photopsia 06/25/2022 06/25/2022 documented as of this encounter (statuses as of 06/29/2022) [facility] Narrative* Problem Noted Date Resolved Date Combined 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 06/25/2022 06/25/2022 Photopsia 06/25/2022 06/25/2022 documented as of this encounter (statuses as of 07/03/2022) [facility] of [facility] Narrative* Problem Noted Date Resolved Date Combined 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 06/25/2022 06/25/2022 Photopsia 06/25/2022 06/25/2022 documented as of this encounter (statuses as of 07/05/2022) [facility] of [facility] Narrative* Problem Noted Date Resolved Date Combined 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 06/25/2022 06/25/2022 Photopsia 06/25/2022 06/25/2022 documented as of this encounter (statuses as of 07/23/2022) [facility] of [facility] Narrative* Problem Noted Date Resolved Date Combined 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 06/25/2022 06/25/2022 Photopsia 06/25/2022 06/25/2022 documented as of this encounter (statuses as of 07/24/2022) [facility] of [facility] Narrative* Problem Noted Date Resolved Date Combined 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 06/25/2022 06/25/2022 Photopsia 06/25/2022 06/25/2022 documented as of this encounter (statuses as of 07/24/2022) [facility] Narrative* Problem Noted Date Resolved Date Combined 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 06/25/2022 06/25/2022 Photopsia 06/25/2022 06/25/2022 documented as of this encounter (statuses as of 07/25/2022) [facility] Narrative* Problem Noted Date Resolved Date Combined 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 06/25/2022 06/25/2022 Photopsia 06/25/2022 06/25/2022 documented as of this encounter (statuses as of 08/14/2022) [facility] Narrative* Problem Noted Date Resolved Date Combined 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 06/25/2022 06/25/2022 Photopsia 06/25/2022 06/25/2022 documented as of this encounter (statuses as of 08/16/2022) [facility] Narrative* Problem Noted Date Resolved Date Combined 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 06/25/2022 06/25/2022 Photopsia 06/25/2022 06/25/2022 documented as of this encounter (statuses as of 09/20/2022) [facility] Narrative* Problem Noted Date Resolved Date Combined 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 06/25/2022 06/25/2022 Photopsia 06/25/2022 06/25/2022 documented as of this encounter (statuses as of 09/26/2022) [facility] Narrative* Problem Noted Date Resolved Date Combined 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 06/25/2022 06/25/2022 Photopsia 06/25/2022 06/25/2022 documented as of this encounter (statuses as of 09/27/2022) [facility] Narrative* Problem Noted Date Resolved Date Combined 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 06/25/2022 06/25/2022 Photopsia 06/25/2022 06/25/2022 documented as of this encounter (statuses as of 09/28/2022) [facility] Narrative* Problem Noted Date Resolved Date Combined 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 06/25/2022 06/25/2022 Photopsia 06/25/2022 06/25/2022 documented as of this encounter (statuses as of 10/01/2022) [facility] Narrative* Problem Noted Date Resolved Date Combined 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 06/25/2022 06/25/2022 Photopsia 06/25/2022 06/25/2022 documented as of this encounter (statuses as of 10/02/2022) [facility] Narrative* Problem Noted Date Resolved Date Combined 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 06/25/2022 06/25/2022 Photopsia 06/25/2022 06/25/2022 documented as of this encounter (statuses as of 10/02/2022) [facility] Narrative* Problem Noted Date Resolved Date Combined 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 06/25/2022 06/25/2022 Photopsia 06/25/2022 06/25/2022 documented as of this encounter (statuses as of 10/04/2022) [facility] Narrative* Problem Noted Date Resolved Date Combined 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 06/25/2022 06/25/2022 Photopsia 06/25/2022 06/25/2022 documented as of this encounter (statuses as of 10/09/2022) [facility] Narrative* Problem Noted Date Resolved Date Combined 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 06/25/2022 06/25/2022 Photopsia 06/25/2022 06/25/2022 documented as of this encounter (statuses as of 10/11/2022) [facility] Narrative* Problem Noted Date Resolved Date Combined 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 06/25/2022 06/25/2022 Photopsia 06/25/2022 06/25/2022 documented as of this encounter (statuses as of 10/17/2022) [facility] Narrative* Problem Noted Date Resolved Date Combined 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 06/25/2022 06/25/2022 Photopsia 06/25/2022 06/25/2022 documented as of this encounter (statuses as of 10/17/2022) [facility] Narrative* Problem Noted Date Resolved Date Combined 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 06/25/2022 06/25/2022 Photopsia 06/25/2022 06/25/2022 documented as of this encounter (statuses as of 10/25/2022) [address]24-2022 History of Past illness Narrative* Problem Noted Date Resolved Date Combined 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 06/25/2022 06/25/2022 Photopsia 06/25/2022 06/25/2022 documented as of this encounter (statuses as of 10/26/2022) [facility] Narrative* Problem Noted Date Resolved Date Combined 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 06/25/2022 06/25/2022 Photopsia 06/25/2022 06/25/2022 documented as of this encounter (statuses as of 10/29/2022) [facility] Narrative* Problem Noted Date Resolved Date Combined 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 06/25/2022 06/25/2022 Photopsia 06/25/2022 06/25/2022 documented as of this encounter (statuses as of 10/31/2022) [facility] Narrative* Problem Noted Date Resolved Date Combined 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 06/25/2022 06/25/2022 Photopsia 06/25/2022 06/25/2022 documented as of this encounter (statuses as of 11/02/2022) [facility] of [facility] Narrative* Problem Noted Date Resolved Date Combined 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 06/25/2022 06/25/2022 Photopsia 06/25/2022 06/25/2022 documented as of this encounter (statuses as of 11/05/2022) [facility] of [facility] Narrative* Problem Noted Date Resolved Date Combined 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 06/25/2022 06/25/2022 Photopsia 06/25/2022 06/25/2022 documented as of this encounter (statuses as of 11/13/2022) [facility] Narrative* Problem Noted Date Diagnosed Date Resolved Date Combined forms of age-relate d cataract of right eye 06/25/2022 06/25/2022 Photopsia 06/25/2022 06/25/2022 Combined forms of age-relate d cataract, left eye 04/03/2022 12/29/2022 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, right, indeterminate stage 10/26/2021 0 12/29/2022 documented as of this encounter (statuses as of 07/06/2023) [facility] Narrative* Problem Noted Date Diagnosed Date Resolved Date Combined forms of age-relate d cataract of right eye 06/25/2022 06/25/2022 Photopsia 06/25/2022 06/25/2022 Combined forms of age-relate d cataract, left eye 04/03/2022 12/29/2022 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, right, indeterminate stage 10/26/2021 0 12/29/2022 documented as of this encounter (statuses as of 07/06/2023) [facility] Narrative* Problem Noted Date Diagnosed Date Resolved Date Combined forms of age-relate d cataract of right eye 06/25/2022 06/25/2022 Photopsia 06/25/2022 06/25/2022 Combined forms of age-relate d cataract, left eye 04/03/2022 12/29/2022 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, right, indeterminate stage 10/26/2021 0 12/29/2022 documented as of this encounter (statuses as of 07/06/2023) [facility] Narrative* Problem Noted Date Diagnosed Date Resolved Date Combined forms of age-relate d cataract of right eye 06/25/2022 06/25/2022 Photopsia 06/25/2022 06/25/2022 Combined forms of age-relate d cataract, left eye 04/03/2022 12/29/2022 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 Author Type: Registered Nurse Type: Nursing Progress Note Filed: 06/25/2022 9:59 AM Note Text: Spoke with Mallika LABEL PRINTER that patient has questions for Dr. Johnson prior to procedure.[id number] Discharge instructions* Discharge Instr - Other [...] 38.3 C Trouble breathing Contact Jonathon Johnson [phone] and leave voicemail -emergency numbers: [phone] or ext [phone] and ask for the eye doctor adoption services manager. documented in this encounterLouis Stokes Cleveland Va Medical [facility] History and physical note * Jonathon Johnson [...] 2022 TIME: 10:02 AM documented in this encounterLouis Stokes Cleveland [facility] Center10-24-[facility]22 Nurse Note* Allie Cardoso RN - 06/25/2022 9:58 AM EDT Spoke with Mallika LABEL PRINTER that patient has questions for Dr. Johnson prior to procedure. documented in this encounterLouis Stokes Cleveland Va [facility] Center10-24-2022 Surgical operation note* Operative Report - Jonathon Johnson MD - 06/25/2022 9:58 AM EDT OPERATIVE/PROCEDURE REPORT OPHTHAMOLOGY LOG ID: [id number] SURGERY/PROCEDURE DATE: 06/25/2022 INCISION/PROCEDURE START TIME: 10:13 AM INCISION CLOSE/PROCEDURE END TIME: 11:27 AM SURGEON(S)/PROCEDURALIST(S) AND BRASS PLATER(S): Surgeon(s) and Role: * Jonathon Johnson MD [...] Implant Name Type Inv. Item Serial No. Production Operator Lot No. LRB No. Used Action Model No. LENS ACRYSOF ULTRASERT +14.5 DIOPTER ACRYLIC IOL 1 PIECE FOLDABLE UV BLUE - [id number] Intraocular Lens LENS ACRYSOF ULTRASERT +14.5 DIOPTER ACRYLIC IOL 1 PIECE FOLDABLE UV BLUE [id number] [employer] Right 1 Implanted [id number] Ocular Co-Morbidities: Yes Intra-operative Complications None I/primary surgeon/proceduralist performed the entire procedure. SIGNATURE: Jonathon Johnson MD PATIENT NAME: Allie Rutledge DATE: June 25, 2022 TIME: 11:31 AM PAGER/CONTACT #: [phone] documented in this encounterLouis Stokes Cleveland Va [facility] Center10-21-2022 Miscellaneous Notes* Telephone Encounter - Janet Rivero RN - 06/22/2022 10:58 AM EDT Pended pre-operative drop prescriptions to Dr. Johnson for approval. Janet Rivero RN June 22, 2022 10:59 AM documented in this encounterLouis Stokes Cleveland Va [facility] Center10-21-2022 Miscellaneous Notes* Telephone Encounter - Meche Salvador - 06/22/2022 9:24 AM EDT Patient's pharmacy has no record of receiving the pre surgical prescriptions. Her surgery is 06-25-22, so she needs to start the drops tomorrow. Please send drops to [facility] [place] [address]. [place], [place] documented in this encounterLouis Stokes Cleveland Va Medical Center10-19-2022 History of Present illness Narrative* Charlene Grossman MD - 06/20/2022 5:16 PM EDT Images from the original note were not included. Charlene Grossman MD Interventional Cardiology [address] [place], [place] [id number] Chief Complaint Patient presents with: CARD New Patient Consult: PXE HISTORY OF PRESENT ILLNESS: Ms. Rutledge is a 52 year old female patient [...] (RIGHT EYE) Right 10/26/2021 S [place] [id number] FAMILY HISTORY Problem Relation Age of Onset Heart Father Age 61 Heart Maternal Grandfather Cancer Paternal Grandmother Breast Cancer Maternal Aunt 55 ovarian cancer Heart Son [place] Ovarian cancer Maternal Grandmother Glaucoma No Family [...] to correct any errors. documented in this encounterLouis Stokes Cleveland Va Medical Center10-19-2022 Nurse Note* Alana Jiang MA - 06/20/2022 12:46 PM EDT Patient c/o bradycardia, palpitations, SOB, chest tenderness documented in this encounterLouis Stokes Cleveland Va Medical Center10-19-2022 Miscellaneous Notes* Telephone Encounter - Mauricio Bahena - 06/20/2022 9:32 AM EDT Attempted to contact patient to inform to arrive at [address] [place] [address] at 09:05 am for 06/25/22 surgery with Jonathon Johnson MD, to refrain from eating or drinking for 8 hours prior to arrival for surgery, and to begin the eyedrops in the right eye on 06/23/22. Left message on machine to callwith any questions or concerns. documented in this encounterLouis Stokes Cleveland Va Medical Center09-09-2022 Miscellaneous Notes* Telephone Encounter - [...] Cardona LPN * [facility] 10[facility]15 AM EDT Patient has [...] to pharmacy. No need to notify patient. [facility] documented in this encounterLouis Stokes Cleveland [facility] Medical Center09-09-2022 Miscellaneous Notes* Telephone Encounter - Anshul Oliver Ma - 05/11/2022 10:29 AM EDT NOMI: 12/25/2021 Last refill: 09/18/2021 QTY: 60 Refills: 2 * Telephone Encounter - [facility] - 05/11/2022 10:19 AM EDT Patient is requesting medication, Gabapentin 100 mg take one daily at bedtime. She will need these for her upcoming eye procedure. This medication is not on the medication list. Please send to her local pharmacy [facility]. Any questions , please call patient [phone] documented in this encounterLouis Stokes Cleveland Va Medical Center09-01-2022 History of Present illness Narrative* Viviana Powell Ma - 05/03/2022 4:34 PM EDT EMG/NCV order faxed to [facility] scheduling. Referral done in computer. * Massimo Hicks MD - 05/03/2022 1:30 PM EDT Massimo Hicks MD Department of Orthopaedics Orthopaedics [address] [facility] [address] Dept: [phone] Dept May 03, 2022 CHIEF COMPLAINT: New [...] (RIGHT EYE) Right 10/26/2021 [place] [id number] Family History: FAMILY HISTORY Problem Relation Age of Onset Heart Father Age 61 Heart Maternal Grandfather Cancer Paternal Grandmother Breast Cancer Maternal Aunt 55 ovarian cancer Heart Son [place] Ovarian cancer Maternal Grandmother Glaucoma No Family [...] electronic medical record. Massimo Hicks [address] [facility] [address] Ifeoma Davis MD [address] [facility] [address] Massimo Hicks MD documented in this encounterLouis Stokes Cleveland Va Medical Center08-24-2022 Miscellaneous Notes* Telephone Encounter - Zainab Leyva - 04/25/2022 10:42 AM EDT INTRAOCULAR LENS ORDER ATTN: [facility] PATIENTS NAME: Allie Rutledge SURGERY DATE: 06/25/2022 EYE: OD SURGEON: Jonathon Johnson MD LENS: AcrySof IQ KELP GATHERER: Leonardo MODEL: [id number] POWER: + 14.5 ADDITIONAL NOTES: documented in this encounterLouis Stokes Cleveland [facility] Center08-11-2022 History of Present illness Narrative* Jonathon Johnson [...] components. Jonathon Johnson MD documented in this encounterLouis Stokes Cleveland [facility] Center08-02-2022 Instructions* Patient Instructions* Jonathon Johnson MD - 04/03/2022 12:34 PM EDT Images from the original note were not included. documented in this encounterLouis Stokes Cleveland Va Medical Center08-02-2022 History of Present illness Narrative* Jonathon Johnson [...] as other activities of daily living. Allie Bustos Aamir has confirmed that she is no longer [...] virus? -Anti-nuclear antibody and Herpes simples virus 6/28/22--> negative -resolved Plan: -3-month dissolvable collagen plug [...] components. Jonathon Johnson MD documented in this encounterLouis Stokes Cleveland [facility] Center07-26-2022 History of Present illness Narrative* [...] (H52.7) Refractive error Comment: Myopia, patient has sizing sponger Plan: Wait on new specs for now RTC 3 months VaTa or sooner if needed post-op I have confirmed and edited as necessary the relevant ophthalmic history, ROS, and the neuro exam findings as obtained by others. I have seen and examined this patient. I have discussed the case and the management of this patient's care with the Resident/Fellow/Production Support Developer, if applicable. I also have reviewed and agree with the assessment and plan as stated above and agree with all of its relevant components. Cynthia Ramos MD April 03, 2022 5:22 PM documented in this encounterLouis Stokes Cleveland [facility] Center07-13-2022 History of Present illness Narrative* Jonathon Johnson [...] components. Jonathon Johnson MD documented in this encounterLouis Stokes Cleveland [facility] Center07-01-2022 Miscellaneous Notes* Telephone Encounter - [...] 10:47 AM * Telephone Encounter - Kan Nisreen - 03/02/2022 10:29 AM EDT The patient reports that her bloodwork came back negative and was asking if she needed to do anything further as she received a recent diagnosis of a corneal ulcer from Dr. Johnson. Please advise. documented in this encounterLouis Stokes Cleveland [facility] Center06-28-2022 History of Present illness Narrative* Jonathon Johnson [...] components. Jonathon Johnson MD documented in this encounterLouis Stokes Cleveland [facility] Medical Center06-11-2022 Miscellaneous Notes* Telephone Encounter - Aleksandra Min LPN - 02/10/2022 11:58 AM EDT Patient notified on mychart. * Telephone Encounter - Lowell Kelly APRN.CNP - 02/10/2022 11:20 AM EDT No growth for urine culture. If symptoms persist then follow up with PCP Please notify thank you documented in this encounterLouis Stokes Cleveland Va Medical Center06-10-2022 Miscellaneous Notes* Telephone Encounter - Mary Adams - 02/09/2022 10:05 AM EDT Pharmacy verified [...] advise. Mary Goodwin Pss documented in this encounterLouis Stokes Cleveland Va Medical Center06-09-2022 Miscellaneous Notes* Telephone Encounter - [...] is not covered by most insurance companies. [employer] offers pricing of over $200.00 for all Pharmacies. [employer] does NOT cover it. The client success specialist of [employer] recommends using an on-line Pharmacy, [facility]. They DO NOT submit to [...] that she can use? documented in this encounterLouis Stokes Cleveland Va Medical Center05-13-2022 Miscellaneous Notes* Telephone Encounter - Mary Tamez RN - 01/12/2022 10:46 AM EDT Patient last seen for annual exam on 12/04/21. Needs a new RX for Prempro. Out of refills. RX pending. Pending Prescriptions Disp Refills CONJ ESTROGEN-MEDROXYPROGESTERONE 0.45 MG-1.5 MG TABLET 84 tablet 2 Sig: Take 1 tablet by mouth once daily. WALTER: No Mary Tamez RN documented in this encounterLouis Stokes Cleveland Va Medical Center04-25-2022 History of Present illness Narrative* [...] (RIGHT EYE) Right 10/26/2021 [place] [id number] FAMILY HISTORY Problem Relation Age of Onset Heart Father Age 61 Heart Maternal Grandfather Cancer Paternal Grandmother Breast Cancer Maternal Aunt 55 ovarian cancer Heart Son [place] Ovarian cancer Maternal Grandmother Glaucoma No Family [...] IVCON Ifeoma Davis MD documented in this encounterLouis Stokes Cleveland [facility] Center04-19-2022 History of Present illness Narrative* [...] (H52.7) Refractive error Comment: Myopia, patient has sizing sponger; happy with new glasses Plan: f/u as [...] management of this patient's care with the Resident/Fellow/Production Support Developer, if applicable. I also have reviewed and agree with the assessment and plan as stated above and agree with all of its relevant components. Cynthia Ramos MD December 19, 2021 2:17 PM documented in this encounterLouis Stokes Cleveland [facility] Medical Center04-11-2022 Miscellaneous Notes* Telephone Encounter - [...] evaluated for this. Thank you David Anna APRN.DEBORAH * Telephone Encounter - Tori Morales Ma [...] Anna APRN.CNP * Telephone Encounter - Mary Kirsty - 12/07/2021 9:06 AM EDT Pt called stating that Dr. Chavez is suggesting an MRA brain be order due to vertigo. documented in this encounterLouis Stokes Cleveland [facility] Center04-04-2022 History of Present illness Narrative* Destiney Pendleton [...] L3 SAB0 IAB0 Ectopic0 Multiple0 Live Births0 Hydrodynamics Teacher History LMP: Ablation Age at Menarche: Age at First : Age at Menopause: Hydrodynamics Teacher History Comments: Sexual Activity: Not Asked; Male [...] (RIGHT EYE) Right 10/26/2021 [place] [id number] FAMILY HISTORY Problem Relation Age of Onset Heart Father Age 61 Heart Maternal Grandfather Cancer Paternal Grandmother Breast Cancer Maternal Aunt 55 ovarian cancer Heart Son [place] Ovarian cancer Maternal Grandmother Glaucoma No Family [...] external genitalia normal, normal Bartholin's glands, urethra, [place]'s glands, no vulvar lesions, no cervical lesions, [...] year or sooner as needed Destiney Pendleton APRN.ADMINISTRATIVE INTERN documented in this encounterLouis Stokes Cleveland [facility] Medical Center03-29-2022 History of Present illness Narrative* [...] (H52.7) Refractive error Comment: Myopia, patient has sizing sponger Plan: f/u as planned RTC f/u as [...] as needed No rubbing eyes Update Mrx (H40.0924) Primary open angle glaucoma (POAG) of both [...] Mrx as above RTC f/u as planned Sandra I have confirmed and edited as necessary the relevant ophthalmic history, ROS, and the neuro exam findings as obtained by others. I have seen and examined this patient. I have discussed the case and the management of this patient's care with the Resident/Fellow/Production Support Developer, if applicable. I also have reviewed and agree with the assessment and plan as stated above and agree with all of its relevant components. Cynthia Ramos MD December 03, 2021 3:53 PM documented in this encounterLouis Stokes Cleveland [facility]* Diagnosis Follow-up exam- Primary Unspecified follow-up examination [facility] Diagnosis Encounter for gynecological examination (general) (routine) without abnormal findings- Primary Encounter for screening mammogram for breast cancer documented in this encounter [facility]* Diagnosis Follow-up exam- Primary Unspecified follow-up examination Photopsia Other visual distortions and entoptic phenomena 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 documented in this encounter [facility]* Diagnosis 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 Vertigo Dizziness and giddiness Memory deficits Memory loss New daily persistent headache Chronic mixed headache syndrome Other headache syndromes documented in this encounter [facility]* Diagnosis 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 injury Post-traumatic headache, unspecified documented in this encounter [facility]* Diagnosis Photopsia- Primary Other visual distortions and entoptic phenomena Primary open angle glaucoma (POAG) of both eyes, indeterminate stage Combined form of age-related cataract, 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 Marginal corneal ulcer documented in this encounter [facility]* Diagnosis Photopsia- Primary Other visual distortions and entoptic phenomena Primary open angle glaucoma (POAG) of both eyes, indeterminate stage Combined form of age-related cataract, 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 Marginal corneal ulcer 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 documented in this encounter [facility]* Diagnosis Medication management Encounter for long-term (current) use of other medications [facility] Diagnosis Photopsia- Primary Other visual distortions and entoptic phenomena Combined forms of age-related cataract of both eyes Other and combined forms of senile cataract Primary open angle glaucoma (POAG) of both eyes, indeterminate stage Combined form of age-related cataract, both eyes [facility]* Diagnosis Primary open angle glaucoma (POAG) of both eyes, indeterminate stage- Primary Corneal dellen of left eye Nuclear senile cataract of right eye [facility] Diagnosis Combined 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- Primary Other and combined forms of senile cataract Combined forms of age-related cataract of left eye Other and combined forms of senile cataract [facility]* Diagnosis Pain in both hands- Primary Trigger middle finger of left hand Trigger finger (acquired) Trigger ring finger of right hand Trigger finger (acquired) Combined 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 Other and combined forms of senile cataract Photopsia Other visual distortions and entoptic phenomena [facility]* Diagnosis 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 Obesity, Class I, BMI 30-34.9 Obesity, unspecified Combined 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 Other and combined forms of senile cataract Photopsia Other visual distortions and entoptic phenomena [facility]* Diagnosis Combined 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 Other and combined forms of senile cataract Photopsia Other visual distortions and entoptic phenomena [facility]* Diagnosis Pseudophakia- Primary Lens replaced by other means [facility]* Diagnosis Acute cough- Primary documented [...] by other means [facility]* Diagnosis Pseudophakia, right eye- Primary [...] eye, severe stage [facility]* Diagnosis Trigger ring finger of [...] eye, severe stage [facility]* Diagnosis Follow-up exam- Primary Unspecified follow-up examination [facility]* Diagnosis Trigger ring finger of right hand- Primary Trigger finger (acquired) Trigger middle finger of left hand Trigger finger (acquired) [facility]* Diagnosis Follow-up exam- Primary Unspecified follow-up examination [facility]* Diagnosis Follow-up exam- Primary Unspecified follow-up examination Vitreous prolapse of left eye Vitreous prolapse documented [facility] noteNo assessment information availableWUniversity Hospitals [facility] Work Phone: Evaluation note* Diagnosis Secondary glaucoma, indeterminate stage, 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 Pseudophakia of both eyes Lens replaced by other means documented in this encounter [facility]* Diagnosis Gastroesophageal reflux disease, unspecified whether esophagitis present- Primary Change in bowel habits Other symptoms involving digestive system documented in this encounter [facility]* Diagnosis Legally blind- Primary Legal blindness, as defined in [place] [facility]* Diagnosis Numbness and tingling in right hand- Primary Disturbance of skin sensation [facility]* Diagnosis Trigger finger, unspecified finger, unspecified laterality documented in this encounter [facility]* Diagnosis Abnormal mammogram Abnormal mammogram, unspecified documented in this encounter [facility]* Diagnosis Pain in both hands documented in this encounter [facility]* Diagnosis Abnormal mammogram Abnormal mammogram, unspecified documented in this encounter [facility]* Diagnosis Encounter for screening mammogram for breast cancer documented in this encounter [facility] note* Diagnosis Secondary glaucoma, indeterminate stage, 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 documented [facility]* Diagnosis Encounter for screening mammogram for breast cancer documented in this encounter [facility]* Diagnosis Trigger finger, unspecified finger, unspecified laterality [facility]* Diagnosis Bacterial sinusitis- Primary Unspecified sinusitis (chronic) documented in this encounter [facility]* Diagnosis Onset Date Resolution Status Injury of right rotator cuff acute [facility] Work Phone: Evaluation note* Diagnosis Encounter for gynecological examination (general) (routine) without abnormal findings- Primary Encounter for screening for human papillomavirus (HPV) Special screening examination for human papillomavirus (HPV) Pap smear for cervical cancer screening Screening for malignant neoplasm of the cervix Encounter for screening mammogram for breast cancer documented in this encounter [facility] note* Diagnosis 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 injury Post-traumatic headache, unspecified documented in this encounter [facility]* Diagnosis Secondary glaucoma, indeterminate stage, 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 Pseudophakia of both eyes Lens replaced by other means Legally blind Legal blindness, as defined in [place] documented in this encounter [facility] note* Diagnosis Hypertension Unspecified essential hypertension Mixed hyperlipidemia Medication management Encounter for long-term (current) use of other medications documented in this encounter [facility] note* Diagnosis Annual wellness visit- [...] [place] Mixed hyperlipidemia documented in this encounter [facility]* Diagnosis Allergic contact dermatitis due to plants, except food- Primary Contact dermatitis and other eczema due to plants (except food) documented in this encounter [facility] note* Diagnosis Establishing care with [...] Post-traumatic headache, unspecified documented in this encounter [facility] note* Diagnosis Establishing care with [...] involving digestive system documented in this encounter [facility] note* Diagnosis Legally blind- Primary Legal blindness, as defined in [place] 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 Trigger finger, unspecified finger, unspecified laterality Mixed hyperlipidemia Primary hypertension Unspecified essential hypertension Swelling of both hands Gastroesophageal reflux disease with esophagitis, unspecified whether hemorrhage documented in this encounter [facility] note* Diagnosis Establishing care with [...] Other screening mammogram documented in this encounter [facility] note* Diagnosis Establishing care with [...] anomaly of skin documented in this encounter [facility]* Diagnosis Establishing care with new doctor, [...] unspecified whether hemorrhage documented in this encounter [facility]* Diagnosis Establishing care with new doctor, [...] COVID-19 virus- Primary documented in this encounter [facility]* Diagnosis Establishing care with new doctor, [...] apnea (adult) (pediatric) documented in this encounter [facility]* Diagnosis Establishing care with new doctor, [...] anomaly of skin documented in this encounter [facility] note* Diagnosis Establishing care with [...] to menopause- Primary documented in this encounter [facility] note* Diagnosis Establishing care with [...] Other sleep disturbances [facility] Diagnosis Establishing care with new doctor, [...] Insomnia, unspecified type documented [facility] this [facility] Diagnosis Establishing care with new doctor, [...] unspecified depression type documented in this encounter [facility] note* Diagnosis Establishing care with [...] streaks of choroid [facility] Diagnosis Establishing care with new doctor, [...] streaks of choroid [facility] Diagnosis Establishing care with new doctor, [...] for breast cancer [facility] Diagnosis Establishing care with new doctor, [...] anomaly of skin documented in this [facility] Diagnosis Establishing care with new doctor, [...] site not specified documented in this [facility] Diagnosis Establishing care with new doctor, [...] unspecified Other fatigue documented in this encounter [facility] note* Diagnosis Establishing care with [...] apnea (adult) (pediatric) documented in this encounter [facility] note* Diagnosis Establishing care with [...] Hypokalemia- Primary Hypopotassemia documented in this encounter [facility] note* Diagnosis Establishing care with [...] unspecified type- Primary documented [facility] Diagnosis Establishing care with new doctor, [...] apnea (adult) (pediatric) documented in this [facility] Diagnosis Establishing care with new doctor, [...] deficiency Mixed hyperlipidemia [facility] Diagnosis Establishing care with new doctor, [...] blind Legal blindness, as defined in [place] Sleep apnea, unspecified type documented in this encounter [facility] note* Diagnosis Establishing care with [...] Unspecified essential hypertension documented in this encounter [facility] note* Diagnosis Establishing care with [...] of left eye documented in this encounter [facility] note* Diagnosis Establishing care with [...] unspecified single disease documented in this encounter [facility] note* Diagnosis Establishing care with [...] unspecified single disease [facility] Diagnosis Establishing care with new doctor, [...] deficiency Mixed hyperlipidemia documented [facility] this [facility] Diagnosis Establishing care with new doctor, [...] Other specified complications documented [facility] this [facility] Diagnosis Establishing care with new doctor, [...] Assessment & Plan Note - Emily Chaparro APRN.DEBORAH - 03/25/2025 9:02 AM EDT Associated Problem(s): Hypertension Assessment: controlled on rx Last 14 BP Last 14 Encounter BP Readings: Date: BP: 03/24/2025 108/66 12/29/2024 112/66 11/03/2024 114/78 10/31/2024 141/88 10/12/2024 106/63 10/07/2024 124/62 09/29/2024 138/88 09/24/2024 122/81 09/15/2024 118/66 07/08/2024 128/82 04/11/2024 122/70 03/31/2024 128/70 12/24/2023 126/82 11/18/2023 124/72 [facility] Establishing care with [...] glaucoma surgery- Primary documented in this encounter [facility] note* Diagnosis Establishing care with [...] Insomnia, unspecified type [facility] Diagnosis Establishing care with new doctor, [...] following other surgery [facility] Diagnosis Establishing care with [...] of unspecified site documented [facility] this [facility] Diagnosis Establishing care with [...] plants (except food) documented in this [facility] Diagnosis Establishing care with new doctor, [...] indeterminate stage, bilateral [facility] Diagnosis Establishing care with [...] specified erythematous condition documented in this encounter [facility] for referral (narrative)* Diagnostic Procedure Only (Routine) - Pending Review Specialty Diagnoses / Procedures Referred By Shiraz johnson Referred To Contact [facility] Diagnoses Encounter for screening mammogram for breast cancer Procedures GENOVEVA SCREENING SCREENING MAMMOGRAPHY BI 2-VIEW BREAST INC Destiney Proctor APRN.CNP [address] [place] [address] [facility] [address] [place] [address] Referral ID Status Reason Start Date Expiration Date Visits Requested Visits Authorized [id number] Pending Review Auto-Generat ed Referral 12/04/2021 01/03/2023 1 1 [facility] for referral (narrative)* Outpatient Procedure (Routine) - Pending Review Specialty Diagnoses / Procedures Referred By Shiraz johnson Referred To Contact [facility] Diagnoses Pain in both hands Procedures EMG(NEURO/NI) NERVE CONDUCTION STUDIES 9-10 STUDIES Massimo Hicks MD [address] [place] [address] [facility] [place] [address] [place] [address] Referral ID Status Reason Start Date Expiration Date Visits Requested Visits Authorized [id number] Pending Review Auto-Generat ed Referral 05/03/2022 05/03/2023 1 1 [facility] for referral (narrative)* Outpatient Procedure (Routine) - Pending Review Specialty Diagnoses / Procedures Referred By Shiraz t Referred To Contact [facility] Diagnoses PXE (pseudoxanthoma elasticum) Procedures ECHO ECHO TTHRC R-T 2D W/WOM-MODE COMPL SPEC&COLR D Ngoc, Charlene Johnson MD [address] [place] [address] [facility] [place] [address] [place] [address] Referral ID Status Reason Start Date Expiration Date Visits Requested Visits Authorized [id number] Pending Review Auto-Generat ed Referral 2 06/20/2023 1 1 [facility] for referral (narrative)* Diagnostic Procedure Only (Routine) - Pending Review Specialty Diagnoses / Procedures Referred By Shiraz t Referred To Contact [facility] Diagnoses Abnormal mammogram Procedures GENOVEVA DIAGNOSTIC RT DIAGNOSTIC MAMMOGRAPHY COMPUTER-AIDED DETCJ UNI Destiney Pendleton APRN.ADMINISTRATIVE INTERN [address] [facility] [place] [address] [facility] [address] [place] [address] Referral ID Status Reason Start Date Expiration Date Visits Requested Visits Authorized [id number] Pending Review Auto-Generat ed Referral 09/28/2022 10/28/2023 1 1 * Diagnostic Procedure Only (Routine) - Pending Review Specialty Diagnoses / Procedures Referred By Shiraz t Referred To Contact [facility] Diagnoses Abnormal mammogram Procedures US BREAST LTD RT US BREAST UNI REAL TIME WITH IMAGE LIMITED Destiney Pendleton APRN.CNP [address] [place] [address] [facility] [address] [place] [address] Referral ID Status Reason Start Date Expiration Date Visits Requested Visits Authorized [id number] Pending Review Auto-Generat ed Referral 09/28/2022 10/28/2023 [address] [facility] for referral (narrative)* Diagnostic Procedure Only (Routine) - Closed Specialty Diagnoses / Procedures Referred By Contac t Referred To Contact XR IMAGING Diagnoses Pain in both hands Procedures XR HAND GENERAL 3V PA/LAT/OBL BILATERAL RADEX HAND MINIMUM 3 VIEWS Massimo Hicks MD [address] [place] [address] X[facility] Imaging Referral ID Status Reason Start Date Expiration Date V isits Requested Visits Authorized [id number] Closed Auto-Generate d Referral 10/01/2022 10/31/2023 [address] [facility] for referral (narrative)* Outpatient Procedure (Routine) - Authorized Specialty Diagnoses / Procedures Referred By Contac t Referred To Contact [facility] Diagnoses Change in bowel habits Procedures COLONOSCOPY DIAGNOSTIC COLONOSCOPY FLX DX W/COLLJ SPEC WHEN PFRMD Cande Pozo PA-C [address] [place] [address] [facility] [place] [address] [place] [address] Referral ID Status Reason Start Date Expiration Date Visits Requested Visits Authorized [id number] Authorized Auto-Generat ed Referral 04/30/2023 04/30/2024 1 1 * Outpatient Procedure (Routine) - Authorized Specialty Diagnoses / Procedures Referred By Contac t Referred To Contact [facility] Diagnoses Gastroesophageal reflux disease, unspecified whether esophagitis present Procedures EGD DIAGNOSTIC ESOPHAGOGASTRODUODENOSC OPY TRANSORAL DIAGNOSTIC Cande Pozo PA-C [address] [place] [address] [facility] [place] [id number] Referral ID Status Reason Start Date Expiration Date Visits Requested Visits Authorized [id number] Authorized Auto-Generat ed Referral 04/30/2023 04/30/2024 1 1 [facility] for referral (narrative)* Outpatient Procedure (Routine) - Pending Review Specialty Diagnoses / Procedures Referred By Yunierac t Referred To Contact [facility] Diagnoses Numbness and tingling in right hand Procedures EMG(NEURO/NI) NERVE CONDUCTION STUDIES 9-10 STUDIES Massimo Hicks MD [address] [place] [address] [facility] [place] [address] [place] [address] Referral ID Status Reason Start Date Expiration Date Visits Requested Visits Authorized [id number] Pending Review Auto-Generat ed Referral 04/25/2023 04/25/2024 1 1 [facility] for referral (narrative)* Diagnostic Procedure Only (Routine) - Closed Specialty Diagnoses / Procedures Referred By Shiraz t Referred To Contact [facility] Diagnoses Abnormal mammogram Procedures US BREAST LTD RT US BREAST UNI REAL TIME WITH IMAGE LIMITED Destiney Pendleton APRN.CNP [address] [place] [address] [facility] [address] [place] [address] Referral ID Status Reason Start Date Expiration Date V isits Requested Visits Authorized [id number] Closed Auto-Generate d Referral 09/28/2022 10/28/2023 1 1 [facility] for referral (narrative)* Diagnostic Procedure Only (Routine) - Closed Specialty Diagnoses / Procedures Referred By Contac t Referred To Contact XR IMAGING Diagnoses Pain in both hands Procedures XR HAND GENERAL 3V PA/LAT/OBL BILATERAL RADEX HAND MINIMUM 3 VIEWS Massimo Hicks MD [address] [place] [address] [place] [address] Referral ID Status Reason Start Date Expiration Date V isits Requested Visits Authorized [id number] Closed Auto-Generate d Referral 10/01/2022 10/31/2023 1 1 [facility] for referral (narrative)* Diagnostic Procedure Only (Routine) - Closed Specialty Diagnoses / Procedures Referred By Contac t Referred To Contact [facility] Diagnoses Encounter for screening mammogram for breast cancer Procedures GENOVEVA SCREENING SCREENING MAMMOGRAPHY BI 2-VIEW BREAST INC CAD Destiney Pendleton APRN.ADMINISTRATIVE INTERN [address] [place] [address] [facility] [address] [place] [address] Referral ID Status Reason Start Date Expiration Date V isits Requested Visits Authorized [id number] Closed Auto-Generate d Referral 09/05/2022 09/01/2023 1 1 [facility] for referral (narrative)* Diagnostic Procedure Only (Routine) - Pending Review Specialty Diagnoses / Procedures Referred By Contac t Referred To Contact [facility] Diagnoses Encounter for gynecological examination (general) (routine) without abnormal findings Encounter for screening mammogram for breast cancer Procedures GENOVEVA SCREENING SCREENING MAMMOGRAPHY BI 2-VIEW BREAST INC CAD Destiney Pendleton, MURTAZA.ADMINISTRATIVE INTERN [address] [place] [address] [facility] [address] [place] [address] Referral ID Status Reason Start Date Expiration Date Visits Requested Visits Authorized [id number] Pending Review Auto-Generat ed Referral 12/24/2023 01/22/2025 1 1 [facility] for referral (narrative)* Outpatient Procedure (Routine) - Closed Specialty Diagnoses / Procedures Referred By Contac t Referred To Contact [facility] Diagnoses Change in bowel habits Procedures COLONOSCOPY DIAGNOSTIC COLONOSCOPY FLX DX W/COLLJ SPEC WHEN PFRMD Cande Pozo PA-C [address] [place] [address] [facility] [address] [place] [address] Referral ID Status Reason Start Date Expiration Date V isits Requested Visits Authorized [id number] Closed Auto-Generate d Referral 04/30/2023 04/30/2024 1 1 * Outpatient Procedure (Routine) - Closed Specialty Diagnoses / Procedures Referred By Shiraz johnson Referred To Contact [facility] Diagnoses Gastroesophageal reflux disease, unspecified whether esophagitis present Procedures EGD DIAGNOSTIC ESOPHAGOGASTRODUODENOSC OPY TRANSORAL DIAGNOSTIC Cande Pozo PA-C [address] [place] [address] [facility] [address] [place] [address] Referral ID Status Reason Start Date Expiration Date V isits Requested Visits Authorized [id number] Closed Auto-Generate d Referral 04/30/2023 04/30/2024 1 1 [facility] for referral (narrative)* Diagnostic Procedure Only (Routine) - Authorized Specialty Diagnoses / Procedures Referred By Shiraz johnson Referred To Contact [facility] Diagnoses Encounter for screening mammogram for malignant neoplasm of breast Procedures GENOVEVA SCREENING W LILLY SCREENING DIGITAL BREAST TOMOSYNTHESIS BI SCREENING MAMMOGRAPHY BI 2-VIEW BREAST INC Ifeoma Bill MD [address] [place] [address] [facility] [address] [place] [address] Referral ID Status Reason Start Date Expiration Date Visits Requested Visits Authorized [id number] Authorized Auto-Generat ed Referral 07/12/2025 1 1 [facility] for referral (narrative)* Outpatient Procedure (Routine) - Closed Specialty Diagnoses / Procedures Referred By Shiraz johnson Referred To Contact [facility] Diagnoses PXE (pseudoxanthoma elasticum) Procedures US CAROTID ARTERIES [facility] DUPLEX SCAN EXTRACRANIAL ART COMPL BI STUDY Ifeoma Davis MD [address] [place] [address] [facility] [place] [address] [place] [address] Referral ID Status Reason Start Date Expiration Date V isits Requested Visits Authorized [id number] Closed Auto-Generate d Referral 05/14/2024 05/14/2025 1 1 [facility] for referral (narrative)No reason for referral information availableWUniversity [facility] Work Phone: Reason for visit Narrative* Diagnostic Procedure Only (Routine) - Closed Specialty Diagnoses / Procedures Referred By Contac t Referred To Contact XR IMAGING Diagnoses Pain Procedures XR HAND GENERAL 3V PA/LAT/OBL BILATERAL RADEX HAND MINIMUM 3 VIEWS Massimo Hicks MD [address] [place] [address] [place] [address] Referral ID Status Reason Start Date Expiration Date V isits Requested Visits Authorized [id number] Closed Auto-Generate d Referral 04/20/2022 09/01/2023 1 1 [facility] for visit Narrative* Diagnostic Procedure Only (Routine) - Closed Specialty Diagnoses / Procedures Referred By Contac t Referred To Contact [facility] Diagnoses Abnormal mammogram Procedures GENOVEVA DIAGNOSTIC RT DIAGNOSTIC MAMMOGRAPHY COMPUTER-AIDED DETCJ UNI Destiney Pendleton, BEAD CUTTER.ADMINISTRATIVE INTERN [address] [place] [address] [facility] [address] [place] [address] Referral ID Status Reason Start Date Expiration Date V isits Requested Visits Authorized [id number] Closed Auto-Generate d Referral 09/28/2022 10/28/2023 1 1 [facility] for visit Narrative* Diagnostic Procedure Only (Routine) - Closed Specialty Diagnoses / Procedures Referred By Contac t Referred To Contact [facility] Diagnoses Encounter for screening mammogram for breast cancer Procedures GENOVEVA SCREENING SCREENING MAMMOGRAPHY BI 2-VIEW BREAST INC CAD Destiney Pendleton, BEAD CUTTER.ADMINISTRATIVE INTERN [address] [facility] [place] [address] [facility] [address] [place] [address] Referral ID Status Reason Start Date Expiration Date V isits Requested Visits Authorized [id number] Closed Auto-Generate d Referral 12/10/2022 01/09/2024 1 1 [facility] for visit Narrative* Outpatient Procedure (Routine) - Closed Specialty Diagnoses / Procedures Referred By Contac t Referred To Contact [facility] Diagnoses Change in bowel habits Procedures COLONOSCOPY DIAGNOSTIC COLONOSCOPY FLX DX W/COLLJ SPEC WHEN PFRMD Cande Pzoo PA-C [address] [facility] [place] [address] [facility] [address] [address] Referral ID Status Reason Start Date Expiration Date V isits Requested Visits Authorized [id number] Closed Auto-Generate d Referral 04/30/2023 04/30/2024 1 1 [facility] for visit Narrative* Diagnostic Procedure Only (Routine) - Closed Specialty Diagnoses / Procedures Referred By Contac t Referred To Contact [facility] Diagnoses Encounter for gynecological examination (general) (routine) without abnormal findings Encounter for screening mammogram for breast cancer Procedures GENOVEVA SCREENING SCREENING MAMMOGRAPHY BI 2-VIEW BREAST INC CAD Destiney Pendleton, BEAD CUTTER.ADMINISTRATIVE INTERN [address] [place] [address] Phone: tel: fax: [facility] [address] [place] [address] Referral ID Status Reason Start Date Expiration Date V isits Requested Visits Authorized [id number] Closed Auto-Generate d Referral 12/24/2023 01/22/2025 1 1 [facility] Advance Directives No Advanced Directives Records FoundDocuments on File Type Date Recorded 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 Advance Directive(s) 10/26/2021 12:12 PM Advance Directive(s) 09/14/2021 11:54 AM Advance Directive(s) 06/22/2019 12:39 PM Advance Directive(s) 02/03/2018 1:55 PM Advance Directive(s) 01/30/2018 9:51 AM Documents on File Type Date Recorded 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 Yes May 27, 2025 6:56pm Advance Directives Yes November 24 3:06pm Reason for Referral Specialty Diagnoses / Procedures Referred By Contac t Referred To Contact [facility] IMAG[facility] Diagnoses 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) Vertigo Memory deficits New daily persistent headache Procedures MRI BRAIN WO/W IVCON MRI BRAIN BRAIN STEM W/O W/CONTRAST MATERIAL Ifeoma Davis MD [facility] [place] [address] Mr Imaging Referral ID Status Reason Start Date Expiration Date Visits Requested Visits Authorized [id number] Authorized Auto-Generat ed Referral 12/25/2021 01/24/2023 1 1 Specialty Diagnoses / Procedures Referred By Contac t Referred To Contact [facility] Diagnoses Blindness right eye category 3, blindness left eye category 4 Procedures CONSULT TO MOLD RUNNER OCCUPATIONAL THERAPY EVAL HIGH COMPLEX 60 MINS Wolf Mason, OD [address] [facility] [address] [place] [address] [facility] [address] [address] Referral ID Status Reason Start Date Expiration Date Visits Requested Visits Authorized [id number] Pending Review Auto-Generat ed Referral 2 08/16/2023 [...] DIRECT PT CONTACT EACH 15 MIN [facility] [address] [place] [address] [facility] [address] [address] Referral ID Status Reason Start Date Expiration Date Visits Requested Visits Authorized [id number] Pending Review PCP Requested Referral Auto-Generate d Referral 09/19/2022 12/18/2022 1 1 Specialty Diagnoses / Procedures Referred By Contac t Referred To Contact Gastroenterology Diagnoses Gastroesophageal reflux disease with esophagitis, unspecified whether hemorrhage Procedures CONSULT TO GASTROENTEROLOGY OFFICE/OUTPATIENT [facility] 60-74 MINUTES Ifeoma Davis MD [address] [place] [address] Referral ID Status Reason Start Date Expiration Date Visits Requested Visits Authorized [id number] Pending Review PCP Requested Referral 10/16/2022 10/16/2023 1 1 Specialty Diagnoses / Procedures Referred By Contac t Referred To Contact [facility] Diagnoses Gastroesophageal reflux disease with esophagitis, unspecified whether hemorrhage Procedures ECG COMPLETE ECG ROUTINE ECG W/LEAST 12 LDS W/I&R Ifeoma Davis MD [address] [place] [address] [facility] [address] [address] Referral ID Status Reason Start Date Expiration Date Visits Requested Visits Authorized [id number] Pending Review Auto-Generat ed Referral 10/16/2022 10/16/2023 1 1 Specialty Diagnoses / Procedures Referred By Contac t Referred To Contact [facility] Diagnoses Trigger ring finger of right hand Trigger middle finger of left hand Procedures CONSULT TO MOLD RUNNER OCCUPATIONAL THERAPY EVAL HIGH COMPLEX 60 MINS Taina Patino PA-C [address] [place] [address] [facility] [address] [address] Referral ID Status Reason Start Date Expiration Date Visits Requested Visits Authorized [id number] Pending Review Auto-Generat ed Referral 11/19/2022 11/19/2023 1 1 Specialty Diagnoses / Procedures Referred By Yunierjustine t Referred To Contact Destiney Pendleton APRN.ADMINISTRATIVE INTERN [address] [place] [address] Referral ID Status Reason Start Date Expiration Date Visits Re quested Visits Authorized [id number] Closed 1 1 Specialty Diagnoses / Procedures Referred By Contac t Referred To Contact Diagnoses 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 injury Calli Gerber, BEAD CUTTER.ADMINISTRATIVE INTERN [address] [place] [address] Referral ID Status Reason Start Date Expiration Date Visits Re quested Visits Authorized [id number] Closed 1 1 Specialty Diagnoses / Procedures Referred By Yunierac t Referred To Contact Diagnoses DAYSI (obstructive sleep apnea) 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) Procedures CONSULT TO SLEEP MEDICINE - ADULT OFFICE/OUTPATIENT [facility] 60 MINUTES Ifeoma Davis MD [address] [place] [address] Referral ID Status Reason Start Date Expiration Date Visits Requested Visits Authorized [id number] Authorized PCP Requested Referral 07/28/2025 1 1 Specialty Diagnoses / Procedures Referred By Yunierjustine t Referred To Contact Diagnoses Vasomotor symptoms due to menopause Destiney Pendleton APRN.ADMINISTRATIVE INTERN [address] [place] [address] Referral ID Status Reason Start Date Expiration Date V isits Requested Visits Authorized [id number] Authorized 06/16/2024 09/15/2025 1 1 Medications Administered Section Active Administered Medications - up to 3 most recent administrations Medication Order MAR Action Action Date Dose Rate Site fluorescein-benoxinate 0.25-0.4 % 1 Drop (FLURESS) 1 Drop, BOTH EYES, DIRECTED, Starting on Sat02/27/22 at 1500, Until Sat02/28/22 at 0259, Administer for applanation tonometry. In the event of a Fluress shortage, administer Corina-Fluor 1 drop into both eyes as directed [...] Given 06/25/2022 11:25 AM EDT 0.1 mL pdqtaevv-ariiqiwzn-zjslprtvb sone 3.5 mg/g-10,000 unit/g-0.1 % (POLYDEX) X [...] or prosecute any alcohol or drug abuse patient.[facility] CenterIn the event this information is protected by the Federal Confidentiality of Alcohol and Drug Abuse Patient Records regulations: The Federal rules restrict any use of the information to criminally investigate or prosecute any alcohol or drug abuse patient.[facility] CenterIn the event this information is protected by the Federal Confidentiality of Alcohol and Drug Abuse Patient Records regulations: The Federal rules restrict any use of the information to criminally investigate or prosecute any alcohol or drug abuse patient.[facility] CenterIn the event this information is protected by the Federal Confidentiality of Alcohol and Drug Abuse Patient Records regulations: The Federal rules restrict any use of the information to criminally investigate or prosecute any alcohol or drug abuse patient.[facility] CenterIn the event this information is protected by the Federal Confidentiality of Alcohol and Drug Abuse Patient Records regulations: The Federal rules restrict any use of the information to criminally investigate or prosecute any alcohol or drug abuse patient.[facility] CenterIn the event this information is protected by the Federal Confidentiality of Alcohol and Drug Abuse Patient Records regulations: The Federal rules restrict any use of the information to criminally investigate or prosecute any alcohol or drug abuse patient.[facility] CenterIn the event this information is protected by the Federal Confidentiality of Alcohol and Drug Abuse Patient Records regulations: The Federal rules restrict any use of the information to criminally investigate or prosecute any alcohol or drug abuse patient.[facility] CenterIn the event this information is protected by the Federal Confidentiality of Alcohol and Drug Abuse Patient Records regulations: The Federal rules restrict any use of the information to criminally investigate or prosecute any alcohol or drug abuse patient.[facility] CenterIn the event this information is protected by the Federal Confidentiality of Alcohol and Drug Abuse Patient Records regulations: The Federal rules restrict any use of the information to criminally investigate or prosecute any alcohol or drug abuse patient.[facility] CenterIn the event this information is protected by the Federal Confidentiality of Alcohol and Drug Abuse Patient Records regulations: The Federal rules restrict any use of the information to criminally investigate or prosecute any alcohol or drug abuse patient.[facility] CenterIn the event this information is protected by the Federal Confidentiality of Alcohol and Drug Abuse Patient Records regulations: The Federal rules restrict any use of the information to criminally investigate or prosecute any alcohol or drug abuse patient.[facility] CenterIn the event this information is protected by the Federal Confidentiality of Alcohol and Drug Abuse Patient Records regulations: The Federal rules restrict any use of the information to criminally investigate or prosecute any alcohol or drug abuse patient.[facility] CenterIn the event this information is protected by the Federal Confidentiality of Alcohol and Drug Abuse Patient Records regulations: The Federal rules restrict any use of the information to criminally investigate or prosecute any alcohol or drug abuse patient.[facility] CenterIn the event this information is protected by the Federal Confidentiality of Alcohol and Drug Abuse Patient Records regulations: The Federal rules restrict any use of the information to criminally investigate or prosecute any alcohol or drug abuse patient.[facility] CenterIn the event this information is protected by the Federal Confidentiality of Alcohol and Drug Abuse Patient Records regulations: The Federal rules restrict any use of the information to criminally investigate or prosecute any alcohol or drug abuse patient.[facility] CenterIn the event this information is protected by the Federal Confidentiality of Alcohol and Drug Abuse Patient Records regulations: The Federal rules restrict any use of the information to criminally investigate or prosecute any alcohol or drug abuse patient.[facility] CenterIn the event this information is protected by the Federal Confidentiality of Alcohol and Drug Abuse Patient Records regulations: The Federal rules restrict any use of the information to criminally investigate or prosecute any alcohol or drug abuse patient.[facility] CenterIn the event this information is protected by the Federal Confidentiality of Alcohol and Drug Abuse Patient Records regulations: The Federal rules restrict any use of the information to criminally investigate or prosecute any alcohol or drug abuse patient.[facility] CenterIn the event this information is protected by the Federal Confidentiality of Alcohol and Drug Abuse Patient Records regulations: The Federal rules restrict any use of the information to criminally investigate or prosecute any alcohol or drug abuse patient.[facility] CenterIn the event this information is protected by the Federal Confidentiality of Alcohol and Drug Abuse Patient Records regulations: The Federal rules restrict any use of the information to criminally investigate or prosecute any alcohol or drug abuse patient.[facility] CenterIn the event this information is protected by the Federal Confidentiality of Alcohol and Drug Abuse Patient Records regulations: The Federal rules restrict any use of the information to criminally investigate or prosecute any alcohol or drug abuse patient.[facility] CenterIn the event this information is protected by the Federal Confidentiality of Alcohol and Drug Abuse Patient Records regulations: The Federal rules restrict any use of the information to criminally investigate or prosecute any alcohol or drug abuse patient.[facility] CenterIn the event this information is protected by the Federal Confidentiality of Alcohol and Drug Abuse Patient Records regulations: The Federal rules restrict any use of the information to criminally investigate or prosecute any alcohol or drug abuse patient.[facility] CenterIn the event this information is protected by the Federal Confidentiality of Alcohol and Drug Abuse Patient Records regulations: The Federal rules restrict any use of the information to criminally investigate or prosecute any alcohol or drug abuse patient.[facility] CenterIn the event this information is protected by the Federal Confidentiality of Alcohol and Drug Abuse Patient Records regulations: The Federal rules restrict any use of the information to criminally investigate or prosecute any alcohol or drug abuse patient.[facility] CenterIn the event this information is protected by the Federal Confidentiality of Alcohol and Drug Abuse Patient Records regulations: The Federal rules restrict any use of the information to criminally investigate or prosecute any alcohol or drug abuse patient.[facility] CenterIn the event this information is protected by the Federal Confidentiality of Alcohol and Drug Abuse Patient Records regulations: The Federal rules restrict any use of the information to criminally investigate or prosecute any alcohol or drug abuse patient.[facility] CenterIn the event this information is protected by the Federal Confidentiality of Alcohol and Drug Abuse Patient Records regulations: The Federal rules restrict any use of the information to criminally investigate or prosecute any alcohol or drug abuse patient.[facility] CenterIn the event this information is protected by the Federal Confidentiality of Alcohol and Drug Abuse Patient Records regulations: The Federal rules restrict any use of the information to criminally investigate or prosecute any alcohol or drug abuse patient.[facility] CenterIn the event this information is protected by the Federal Confidentiality of Alcohol and Drug Abuse Patient Records regulations: The Federal rules restrict any use of the information to criminally investigate or prosecute any alcohol or drug abuse patient.[facility] CenterIn the event this information is protected by the Federal Confidentiality of Alcohol and Drug Abuse Patient Records regulations: The Federal rules restrict any use of the information to criminally investigate or prosecute any alcohol or drug abuse patient.[facility] CenterIn the event this information is protected by the Federal Confidentiality of Alcohol and Drug Abuse Patient Records regulations: The Federal rules restrict any use of the information to criminally investigate or prosecute any alcohol or drug abuse patient.[facility] CenterIn the event this information is protected by the Federal Confidentiality of Alcohol and Drug Abuse Patient Records regulations: The Federal rules restrict any use of the information to criminally investigate or prosecute any alcohol or drug abuse patient.[facility] CenterIn the event this information is protected by the Federal Confidentiality of Alcohol and Drug Abuse Patient Records regulations: The Federal rules restrict any use of the information to criminally investigate or prosecute any alcohol or drug abuse patient.[facility] CenterIn the event this information is protected by the Federal Confidentiality of Alcohol and Drug Abuse Patient Records regulations: The Federal rules restrict any use of the information to criminally investigate or prosecute any alcohol or drug abuse patient.[facility] CenterIn the event this information is protected by the Federal Confidentiality of Alcohol and Drug Abuse Patient Records regulations: The Federal rules restrict any use of the information to criminally investigate or prosecute any alcohol or drug abuse patient.[facility] CenterIn the event this information is protected by the Federal Confidentiality of Alcohol and Drug Abuse Patient Records regulations: The Federal rules restrict any use of the information to criminally investigate or prosecute any alcohol or drug abuse patient.[facility] CenterIn the event this information is protected by the Federal Confidentiality of Alcohol and Drug Abuse Patient Records regulations: The Federal rules restrict any use of the information to criminally investigate or prosecute any alcohol or drug abuse patient.[facility] CenterIn the event this information is protected by the Federal Confidentiality of Alcohol and Drug Abuse Patient Records regulations: The Federal rules restrict any use of the information to criminally investigate or prosecute any alcohol or drug abuse patient.[facility] CenterIn the event this information is protected by the Federal Confidentiality of Alcohol and Drug Abuse Patient Records regulations: The Federal rules restrict any use of the information to criminally investigate or prosecute any alcohol or drug abuse patient.[facility] CenterIn the event this information is protected by the Federal Confidentiality of Alcohol and Drug Abuse Patient Records regulations: The Federal rules restrict any use of the information to criminally investigate or prosecute any alcohol or drug abuse patient.[facility] CenterIn the event this information is protected by the Federal Confidentiality of Alcohol and Drug Abuse Patient Records regulations: The Federal rules restrict any use of the information to criminally investigate or prosecute any alcohol or drug abuse patient.[facility] CenterIn the event this information is protected by the Federal Confidentiality of Alcohol and Drug Abuse Patient Records regulations: The Federal rules restrict any use of the information to criminally investigate or prosecute any alcohol or drug abuse patient.[facility] CenterIn the event this information is protected by the Federal Confidentiality of Alcohol and Drug Abuse Patient Records regulations: The Federal rules restrict any use of the information to criminally investigate or prosecute any alcohol or drug abuse patient.[facility] CenterIn the event this information is protected by the Federal Confidentiality of Alcohol and Drug Abuse Patient Records regulations: The Federal rules restrict any use of the information to criminally investigate or prosecute any alcohol or drug abuse patient.[facility] CenterIn the event this information is protected by the Federal Confidentiality of Alcohol and Drug Abuse Patient Records regulations: The Federal rules restrict any use of the information to criminally investigate or prosecute any alcohol or drug abuse patient.[facility] CenterIn the event this information is protected by the Federal Confidentiality of Alcohol and Drug Abuse Patient Records regulations: The Federal rules restrict any use of the information to criminally investigate or prosecute any alcohol or drug abuse patient.[facility] CenterIn the event this information is protected by the Federal Confidentiality of Alcohol and Drug Abuse Patient Records regulations: The Federal rules restrict any use of the information to criminally investigate or prosecute any alcohol or drug abuse patient.[facility] CenterIn the event this information is protected by the Federal Confidentiality of Alcohol and Drug Abuse Patient Records regulations: The Federal rules restrict any use of the information to criminally investigate or prosecute any alcohol or drug abuse patient.[facility] CenterIn the event this information is protected by the Federal Confidentiality of Alcohol and Drug Abuse Patient Records regulations: The Federal rules restrict any use of the information to criminally investigate or prosecute any alcohol or drug abuse patient.[facility] CenterIn the event this information is protected by the Federal Confidentiality of Alcohol and Drug Abuse Patient Records regulations: The Federal rules restrict any use of the information to criminally investigate or prosecute any alcohol or drug abuse patient.[facility] CenterIn the event this information is protected by the Federal Confidentiality of Alcohol and Drug Abuse Patient Records regulations: The Federal rules restrict any use of the information to criminally investigate or prosecute any alcohol or drug abuse patient.[facility] CenterIn the event this information is protected by the Federal Confidentiality of Alcohol and Drug Abuse Patient Records regulations: The Federal rules restrict any use of the information to criminally investigate or prosecute any alcohol or drug abuse patient.[facility] CenterIn the event this information is protected by the Federal Confidentiality of Alcohol and Drug Abuse Patient Records regulations: The Federal rules restrict any use of the information to criminally investigate or prosecute any alcohol or drug abuse patient.[facility] CenterIn the event this information is protected by the Federal Confidentiality of Alcohol and Drug Abuse Patient Records regulations: The Federal rules restrict any use of the information to criminally investigate or prosecute any alcohol or drug abuse patient.[facility] CenterIn the event this information is protected by the Federal Confidentiality of Alcohol and Drug Abuse Patient Records regulations: The Federal rules restrict any use of the information to criminally investigate or prosecute any alcohol or drug abuse patient.[facility] CenterIn the event this information is protected by the Federal Confidentiality of Alcohol and Drug Abuse Patient Records regulations: The Federal rules restrict any use of the information to criminally investigate or prosecute any alcohol or drug abuse patient.[facility] CenterIn the event this information is protected by the Federal Confidentiality of Alcohol and Drug Abuse Patient Records regulations: The Federal rules restrict any use of the information to criminally investigate or prosecute any alcohol or drug abuse patient.[facility] CenterIn the event this information is protected by the Federal Confidentiality of Alcohol and Drug Abuse Patient Records regulations: The Federal rules restrict any use of the information to criminally investigate or prosecute any alcohol or drug abuse patient.[facility] CenterIn the event this information is protected by the Federal Confidentiality of Alcohol and Drug Abuse Patient Records regulations: The Federal rules restrict any use of the information to criminally investigate or prosecute any alcohol or drug abuse patient.[facility] CenterIn the event this information is protected by the Federal Confidentiality of Alcohol and Drug Abuse Patient Records regulations: The Federal rules restrict any use of the information to criminally investigate or prosecute any alcohol or drug abuse patient.[facility] CenterIn the event this information is protected by the Federal Confidentiality of Alcohol and Drug Abuse Patient Records regulations: The Federal rules restrict any use of the information to criminally investigate or prosecute any alcohol or drug abuse patient.[facility] CenterIn the event this information is protected by the Federal Confidentiality of Alcohol and Drug Abuse Patient Records regulations: The Federal rules restrict any use of the information to criminally investigate or prosecute any alcohol or drug abuse patient.[facility] CenterIn the event this information is protected by the Federal Confidentiality of Alcohol and Drug Abuse Patient Records regulations: The Federal rules restrict any use of the information to criminally investigate or prosecute any alcohol or drug abuse patient.[facility] CenterIn the event this information is protected by the Federal Confidentiality of Alcohol and Drug Abuse Patient Records regulations: The Federal rules restrict any use of the information to criminally investigate or prosecute any alcohol or drug abuse patient.[facility] CenterIn the event this information is protected by the Federal Confidentiality of Alcohol and Drug Abuse Patient Records regulations: The Federal rules restrict any use of the information to criminally investigate or prosecute any alcohol or drug abuse patient.[facility] CenterIn the event this information is protected by the Federal Confidentiality of Alcohol and Drug Abuse Patient Records regulations: The Federal rules restrict any use of the information to criminally investigate or prosecute any alcohol or drug abuse patient.[facility] CenterIn the event this information is protected by the Federal Confidentiality of Alcohol and Drug Abuse Patient Records regulations: The Federal rules restrict any use of the information to criminally investigate or prosecute any alcohol or drug abuse patient.[facility] CenterIn the event this information is protected by the Federal Confidentiality of Alcohol and Drug Abuse Patient Records regulations: The Federal rules restrict any use of the information to criminally investigate or prosecute any alcohol or drug abuse patient.[facility] CenterIn the event this information is protected by the Federal Confidentiality of Alcohol and Drug Abuse Patient Records regulations: The Federal rules restrict any use of the information to criminally investigate or prosecute any alcohol or drug abuse patient.[facility] CenterIn the event this information is protected by the Federal Confidentiality of Alcohol and Drug Abuse Patient Records regulations: The Federal rules restrict any use of the information to criminally investigate or prosecute any alcohol or drug abuse patient.[facility] CenterIn the event this information is protected by the Federal Confidentiality of Alcohol and Drug Abuse Patient Records regulations: The Federal rules restrict any use of the information to criminally investigate or prosecute any alcohol or drug abuse patient.[facility] CenterIn the event this information is protected by the Federal Confidentiality of Alcohol and Drug Abuse Patient Records regulations: The Federal rules restrict any use of the information to criminally investigate or prosecute any alcohol or drug abuse patient.[facility] CenterIn the event this information is protected by the Federal Confidentiality of Alcohol and Drug Abuse Patient Records regulations: The Federal rules restrict any use of the information to criminally investigate or prosecute any alcohol or drug abuse patient.[facility] CenterIn the event this information is protected by the Federal Confidentiality of Alcohol and Drug Abuse Patient Records regulations: The Federal rules restrict any use of the information to criminally investigate or prosecute any alcohol or drug abuse patient.[facility] CenterIn the event this information is protected by the Federal Confidentiality of Alcohol and Drug Abuse Patient Records regulations: The Federal rules restrict any use of the information to criminally investigate or prosecute any alcohol or drug abuse patient.[facility] CenterIn the event this information is protected by the Federal Confidentiality of Alcohol and Drug Abuse Patient Records regulations: The Federal rules restrict any use of the information to criminally investigate or prosecute any alcohol or drug abuse patient.[facility] CenterIn the event this information is protected by the Federal Confidentiality of Alcohol and Drug Abuse Patient Records regulations: The Federal rules restrict any use of the information to criminally investigate or prosecute any alcohol or drug abuse patient.[facility] CenterIn the event this information is protected by the Federal Confidentiality of Alcohol and Drug Abuse Patient Records regulations: The Federal rules restrict any use of the information to criminally investigate or prosecute any alcohol or drug abuse patient.[facility] CenterIn the event this information is protected by the Federal Confidentiality of Alcohol and Drug Abuse Patient Records regulations: The Federal rules restrict any use of the information to criminally investigate or prosecute any alcohol or drug abuse patient.[facility] CenterIn the event this information is protected by the Federal Confidentiality of Alcohol and Drug Abuse Patient Records regulations: The Federal rules restrict any use of the information to criminally investigate or prosecute any alcohol or drug abuse patient.[facility] CenterIn the event this information is protected by the Federal Confidentiality of Alcohol and Drug Abuse Patient Records regulations: The Federal rules restrict any use of the information to criminally investigate or prosecute any alcohol or drug abuse patient.[facility] CenterIn the event this information is protected by the Federal Confidentiality of Alcohol and Drug Abuse Patient Records regulations: The Federal rules restrict any use of the information to criminally investigate or prosecute any alcohol or drug abuse patient.[facility] CenterIn the event this information is protected by the Federal Confidentiality of Alcohol and Drug Abuse Patient Records regulations: The Federal rules restrict any use of the information to criminally investigate or prosecute any alcohol or drug abuse patient.[facility] CenterIn the event this information is protected by the Federal Confidentiality of Alcohol and Drug Abuse Patient Records regulations: The Federal rules restrict any use of the information to criminally investigate or prosecute any alcohol or drug abuse patient.[facility] CenterIn the event this information is protected by the Federal Confidentiality of Alcohol and Drug Abuse Patient Records regulations: The Federal rules restrict any use of the information to criminally investigate or prosecute any alcohol or drug abuse patient.[facility] CenterIn the event this information is protected by the Federal Confidentiality of Alcohol and Drug Abuse Patient Records regulations: The Federal rules restrict any use of the information to criminally investigate or prosecute any alcohol or drug abuse patient.[facility] CenterIn the event this information is protected by the Federal Confidentiality of Alcohol and Drug Abuse Patient Records regulations: The Federal rules restrict any use of the information to criminally investigate or prosecute any alcohol or drug abuse patient.[facility] CenterIn the event this information is protected by the Federal Confidentiality of Alcohol and Drug Abuse Patient Records regulations: The Federal rules restrict any use of the information to criminally investigate or prosecute any alcohol or drug abuse patient.[facility] CenterIn the event this information is protected by the Federal Confidentiality of Alcohol and Drug Abuse Patient Records regulations: The Federal rules restrict any use of the information to criminally investigate or prosecute any alcohol or drug abuse patient.[facility] CenterIn the event this information is protected by the Federal Confidentiality of Alcohol and Drug Abuse Patient Records regulations: The Federal rules restrict any use of the information to criminally investigate or prosecute any alcohol or drug abuse patient.[facility] CenterIn the event this information is protected by the Federal Confidentiality of Alcohol and Drug Abuse Patient Records regulations: The Federal rules restrict any use of the information to criminally investigate or prosecute any alcohol or drug abuse patient.[facility] CenterIn the event this information is protected by the Federal Confidentiality of Alcohol and Drug Abuse Patient Records regulations: The Federal rules restrict any use of the information to criminally investigate or prosecute any alcohol or drug abuse patient.[facility] CenterIn the event this information is protected by the Federal Confidentiality of Alcohol and Drug Abuse Patient Records regulations: The Federal rules restrict any use of the information to criminally investigate or prosecute any alcohol or drug abuse patient.[facility] CenterIn the event this information is protected by the Federal Confidentiality of Alcohol and Drug Abuse Patient Records regulations: The Federal rules restrict any use of the information to criminally investigate or prosecute any alcohol or drug abuse patient.[facility] CenterIn the event this information is protected by the Federal Confidentiality of Alcohol and Drug Abuse Patient Records regulations: The Federal rules restrict any use of the information to criminally investigate or prosecute any alcohol or drug abuse patient.[facility] CenterIn the event this information is protected by the Federal Confidentiality of Alcohol and Drug Abuse Patient Records regulations: The Federal rules restrict any use of the information to criminally investigate or prosecute any alcohol or drug abuse patient.[facility] CenterIn the event this information is protected by the Federal Confidentiality of Alcohol and Drug Abuse Patient Records regulations: The Federal rules restrict any use of the information to criminally investigate or prosecute any alcohol or drug abuse patient.[facility] CenterIn the event this information is protected by the Federal Confidentiality of Alcohol and Drug Abuse Patient Records regulations: The Federal rules restrict any use of the information to criminally investigate or prosecute any alcohol or drug abuse patient.[facility] CenterIn the event this information is protected by the Federal Confidentiality of Alcohol and Drug Abuse Patient Records regulations: The Federal rules restrict any use of the information to criminally investigate or prosecute any alcohol or drug abuse patient.[facility] CenterIn the event this information is protected by the Federal Confidentiality of Alcohol and Drug Abuse Patient Records regulations: The Federal rules restrict any use of the information to criminally investigate or prosecute any alcohol or drug abuse patient.[facility] CenterIn the event this information is protected by the Federal Confidentiality of Alcohol and Drug Abuse Patient Records regulations: The Federal rules restrict any use of the information to criminally investigate or prosecute any alcohol or drug abuse patient.[facility] CenterIn the event this information is protected by the Federal Confidentiality of Alcohol and Drug Abuse Patient Records regulations: The Federal rules restrict any use of the information to criminally investigate or prosecute any alcohol or drug abuse patient.[facility] CenterIn the event this information is protected by the Federal Confidentiality of Alcohol and Drug Abuse Patient Records regulations: The Federal rules restrict any use of the information to criminally investigate or prosecute any alcohol or drug abuse patient.[facility] CenterIn the event this information is protected by the Federal Confidentiality of Alcohol and Drug Abuse Patient Records regulations: The Federal rules restrict any use of the information to criminally investigate or prosecute any alcohol or drug abuse patient.[facility] CenterIn the event this information is protected by the Federal Confidentiality of Alcohol and Drug Abuse Patient Records regulations: The Federal rules restrict any use of the information to criminally investigate or prosecute any alcohol or drug abuse patient.[facility] CenterIn the event this information is protected by the Federal Confidentiality of Alcohol and Drug Abuse Patient Records regulations: The Federal rules restrict any use of the information to criminally investigate or prosecute any alcohol or drug abuse patient.[facility] CenterIn the event this information is protected by the Federal Confidentiality of Alcohol and Drug Abuse Patient Records regulations: The Federal rules restrict any use of the information to criminally investigate or prosecute any alcohol or drug abuse patient.[facility] CenterIn the event this information is protected by the Federal Confidentiality of Alcohol and Drug Abuse Patient Records regulations: The Federal rules restrict any use of the information to criminally investigate or prosecute any alcohol or drug abuse patient.[facility] CenterIn the event this information is protected by the Federal Confidentiality of Alcohol and Drug Abuse Patient Records regulations: The Federal rules restrict any use of the information to criminally investigate or prosecute any alcohol or drug abuse patient.[facility] CenterIn the event this information is protected by the Federal Confidentiality of Alcohol and Drug Abuse Patient Records regulations: The Federal rules restrict any use of the information to criminally investigate or prosecute any alcohol or drug abuse patient.[facility] CenterIn the event this information is protected by the Federal Confidentiality of Alcohol and Drug Abuse Patient Records regulations: The Federal rules restrict any use of the information to criminally investigate or prosecute any alcohol or drug abuse patient.[facility] CenterIn the event this information is protected by the Federal Confidentiality of Alcohol and Drug Abuse Patient Records regulations: The Federal rules restrict any use of the information to criminally investigate or prosecute any alcohol or drug abuse patient.[facility] CenterIn the event this information is protected by the Federal Confidentiality of Alcohol and Drug Abuse Patient Records regulations: The Federal rules restrict any use of the information to criminally investigate or prosecute any alcohol or drug abuse patient.[facility] CenterIn the event this information is protected by the Federal Confidentiality of Alcohol and Drug Abuse Patient Records regulations: The Federal rules restrict any use of the information to criminally investigate or prosecute any alcohol or drug abuse patient.[facility] CenterIn the event this information is protected by the Federal Confidentiality of Alcohol and Drug Abuse Patient Records regulations: The Federal rules restrict any use of the information to criminally investigate or prosecute any alcohol or drug abuse patient.[facility] CenterIn the event this information is protected by the Federal Confidentiality of Alcohol and Drug Abuse Patient Records regulations: The Federal rules restrict any use of the information to criminally investigate or prosecute any alcohol or drug abuse patient.[facility] CenterIn the event this information is protected by the Federal Confidentiality of Alcohol and Drug Abuse Patient Records regulations: The Federal rules restrict any use of the information to criminally investigate or prosecute any alcohol or drug abuse patient.[facility] CenterIn the event this information is protected by the Federal Confidentiality of Alcohol and Drug Abuse Patient Records regulations: The Federal rules restrict any use of the information to criminally investigate or prosecute any alcohol or drug abuse patient.[facility] CenterIn the event this information is protected by the Federal Confidentiality of Alcohol and Drug Abuse Patient Records regulations: The Federal rules restrict any use of the information to criminally investigate or prosecute any alcohol or drug abuse patient.[facility] CenterIn the event this information is protected by the Federal Confidentiality of Alcohol and Drug Abuse Patient Records regulations: The Federal rules restrict any use of the information to criminally investigate or prosecute any alcohol or drug abuse patient.[facility] CenterIn the event this information is protected by the Federal Confidentiality of Alcohol and Drug Abuse Patient Records regulations: The Federal rules restrict any use of the information to criminally investigate or prosecute any alcohol or drug abuse patient.[facility] CenterIn the event this information is protected by the Federal Confidentiality of Alcohol and Drug Abuse Patient Records regulations: The Federal rules restrict any use of the information to criminally investigate or prosecute any alcohol or drug abuse patient.[facility] CenterIn the event this information is protected by the Federal Confidentiality of Alcohol and Drug Abuse Patient Records regulations: The Federal rules restrict any use of the information to criminally investigate or prosecute any alcohol or drug abuse patient.[facility] CenterIn the event this information is protected by the Federal Confidentiality of Alcohol and Drug Abuse Patient Records regulations: The Federal rules restrict any use of the information to criminally investigate or prosecute any alcohol or drug abuse patient.[facility] CenterIn the event this information is protected by the Federal Confidentiality of Alcohol and Drug Abuse Patient Records regulations: The Federal rules restrict any use of the information to criminally investigate or prosecute any alcohol or drug abuse patient.[facility] CenterIn the event this information is protected by the Federal Confidentiality of Alcohol and Drug Abuse Patient Records regulations: The Federal rules restrict any use of the information to criminally investigate or prosecute any alcohol or drug abuse patient.[facility] CenterIn the event this information is protected by the Federal Confidentiality of Alcohol and Drug Abuse Patient Records regulations: The Federal rules restrict any use of the information to criminally investigate or prosecute any alcohol or drug abuse patient.[facility] CenterIn the event this information is protected by the Federal Confidentiality of Alcohol and Drug Abuse Patient Records regulations: The Federal rules restrict any use of the information to criminally investigate or prosecute any alcohol or drug abuse patient.[facility] CenterIn the event this information is protected by the Federal Confidentiality of Alcohol and Drug Abuse Patient Records regulations: The Federal rules restrict any use of the information to criminally investigate or prosecute any alcohol or drug abuse patient.[facility] CenterIn the event this information is protected by the Federal Confidentiality of Alcohol and Drug Abuse Patient Records regulations: The Federal rules restrict any use of the information to criminally investigate or prosecute any alcohol or drug abuse patient.[facility] CenterIn the event this information is protected by the Federal Confidentiality of Alcohol and Drug Abuse Patient Records regulations: The Federal rules restrict any use of the information to criminally investigate or prosecute any alcohol or drug abuse patient.[facility] CenterIn the event this information is protected by the Federal Confidentiality of Alcohol and Drug Abuse Patient Records regulations: The Federal rules restrict any use of the information to criminally investigate or prosecute any alcohol or drug abuse patient.[facility] CenterIn the event this information is protected by the Federal Confidentiality of Alcohol and Drug Abuse Patient Records regulations: The Federal rules restrict any use of the information to criminally investigate or prosecute any alcohol or drug abuse patient.[facility] CenterIn the event this information is protected by the Federal Confidentiality of Alcohol and Drug Abuse Patient Records regulations: The Federal rules restrict any use of the information to criminally investigate or prosecute any alcohol or drug abuse patient.[facility] CenterIn the event this information is protected by the Federal Confidentiality of Alcohol and Drug Abuse Patient Records regulations: The Federal rules restrict any use of the information to criminally investigate or prosecute any alcohol or drug abuse patient.[facility] CenterIn the event this information is protected by the Federal Confidentiality of Alcohol and Drug Abuse Patient Records regulations: The Federal rules restrict any use of the information to criminally investigate or prosecute any alcohol or drug abuse patient.[facility] CenterIn the event this information is protected by the Federal Confidentiality of Alcohol and Drug Abuse Patient Records regulations: The Federal rules restrict any use of the information to criminally investigate or prosecute any alcohol or drug abuse patient.[facility] CenterIn the event this information is protected by the Federal Confidentiality of Alcohol and Drug Abuse Patient Records regulations: The Federal rules restrict any use of the information to criminally investigate or prosecute any alcohol or drug abuse patient.[facility] CenterIn the event this information is protected by the Federal Confidentiality of Alcohol and Drug Abuse Patient Records regulations: The Federal rules restrict any use of the information to criminally investigate or prosecute any alcohol or drug abuse patient.[facility] CenterIn the event this information is protected by the Federal Confidentiality of Alcohol and Drug Abuse Patient Records regulations: The Federal rules restrict any use of the information to criminally investigate or prosecute any alcohol or drug abuse patient.[facility] CenterIn the event this information is protected by the Federal Confidentiality of Alcohol and Drug Abuse Patient Records regulations: The Federal rules restrict any use of the information to criminally investigate or prosecute any alcohol or drug abuse patient.[facility] CenterIn the event this information is protected by the Federal Confidentiality of Alcohol and Drug Abuse Patient Records regulations: The Federal rules restrict any use of the information to criminally investigate or prosecute any alcohol or drug abuse patient.[facility] CenterIn the event this information is protected by the Federal Confidentiality of Alcohol and Drug Abuse Patient Records regulations: The Federal rules restrict any use of the information to criminally investigate or prosecute any alcohol or drug abuse patient.[facility] CenterIn the event this information is protected by the Federal Confidentiality of Alcohol and Drug Abuse Patient Records regulations: The Federal rules restrict any use of the information to criminally investigate or prosecute any alcohol or drug abuse patient.[facility] CenterIn the event this information is protected by the Federal Confidentiality of Alcohol and Drug Abuse Patient Records regulations: The Federal rules restrict any use of the information to criminally investigate or prosecute any alcohol or drug abuse patient.[facility] CenterIn the event this information is protected by the Federal Confidentiality of Alcohol and Drug Abuse Patient Records regulations: The Federal rules restrict any use of the information to criminally investigate or prosecute any alcohol or drug abuse patient.[facility] CenterIn the event this information is protected by the Federal Confidentiality of Alcohol and Drug Abuse Patient Records regulations: The Federal rules restrict any use of the information to criminally investigate or prosecute any alcohol or drug abuse patient.[facility] CenterIn the event this information is protected by the Federal Confidentiality of Alcohol and Drug Abuse Patient Records regulations: The Federal rules restrict any use of the information to criminally investigate or prosecute any alcohol or drug abuse patient.[facility] CenterIn the event this information is protected by the Federal Confidentiality of Alcohol and Drug Abuse Patient Records regulations: The Federal rules restrict any use of the information to criminally investigate or prosecute any alcohol or drug abuse patient.[facility] CenterIn the event this information is protected by the Federal Confidentiality of Alcohol and Drug Abuse Patient Records regulations: The Federal rules restrict any use of the information to criminally investigate or prosecute any alcohol or drug abuse patient.[facility] CenterIn the event this information is protected by the Federal Confidentiality of Alcohol and Drug Abuse Patient Records regulations: The Federal rules restrict any use of the information to criminally investigate or prosecute any alcohol or drug abuse patient.[facility] CenterIn the event this information is protected by the Federal Confidentiality of Alcohol and Drug Abuse Patient Records regulations: The Federal rules restrict any use of the information to criminally investigate or prosecute any alcohol or drug abuse patient.[facility] CenterIn the event this information is protected by the Federal Confidentiality of Alcohol and Drug Abuse Patient Records regulations: The Federal rules restrict any use of the information to criminally investigate or prosecute any alcohol or drug abuse patient.[facility] CenterIn the event this information is protected by the Federal Confidentiality of Alcohol and Drug Abuse Patient Records regulations: The Federal rules restrict any use of the information to criminally investigate or prosecute any alcohol or drug abuse patient.[facility] CenterIn the event this information is protected by the Federal Confidentiality of Alcohol and Drug Abuse Patient Records regulations: The Federal rules restrict any use of the information to criminally investigate or prosecute any alcohol or drug abuse patient.[facility] CenterIn the event this information is protected by the Federal Confidentiality of Alcohol and Drug Abuse Patient Records regulations: The Federal rules restrict any use of the information to criminally investigate or prosecute any alcohol or drug abuse patient.[facility] CenterIn the event this information is protected by the Federal Confidentiality of Alcohol and Drug Abuse Patient Records regulations: The Federal rules restrict any use of the information to criminally investigate or prosecute any alcohol or drug abuse patient.[facility] CenterIn the event this information is protected by the Federal Confidentiality of Alcohol and Drug Abuse Patient Records regulations: The Federal rules restrict any use of the information to criminally investigate or prosecute any alcohol or drug abuse patient.[facility] CenterIn the event this information is protected by the Federal Confidentiality of Alcohol and Drug Abuse Patient Records regulations: The Federal rules restrict any use of the information to criminally investigate or prosecute any alcohol or drug abuse patient.[facility] CenterIn the event this information is protected by the Federal Confidentiality of Alcohol and Drug Abuse Patient Records regulations: The Federal rules restrict any use of the information to criminally investigate or prosecute any alcohol or drug abuse patient.[facility] Reason for Visit (unrecogniz ed section and content) Reason Comments Occupational Therapy OT Progress Note Specialty Diagnoses / Procedures Referred By Contjustine t Referred To Contact OCCUPATIONAL THERAPY Diagnoses Blindness right eye category 3, blindness left eye category 4 Procedures CONSULT TO MOLD RUNNER OCCUPATIONAL THERAPY EVAL HIGH COMPLEX 60 MINS Wolf Mason, OD [address] [place] [address] Michelle Perez OT/L Referral ID Status Reason Start Date Expiration Date Visits Requested Visits Authorized [id number] Authorized Auto-Generat ed Referral 09/02/2022 09/01/2023 20 [...] IRIS AND CILIARY B[facility] [address] [place] [address] Referral ID Status Reason Start Date Expiration Date Visits Re quested Visits Authorized [id number] 1 1 Reason Comments Post-op (Ophthalmology) Right Eye CE/IOL right eye 06/25/22 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 Reason Comments [...] [address] [facility] [address] [place] [address] Michelle Perez, OT/L Referral ID Status Reason Start Date Expiration Date Visits Re quested Visits Authorized [id number] Closed 09/19/2022 12/18/2022 1 1 Reason Comments [...] EST ADULT Self Cynthia Ramos MD [address] [place] [address] Referral ID Status Reason Start Date Expiration Date Visits Re quested Visits Authorized [id number] Closed 09/25/2022 12/24/2022 1 1 Reason Comments Physical preop clearance for surgeries on 11/07/22, 11/15/22 Reason Comments Occupational Therapy Reason Comments Established Patient Pain Specialty Diagnoses / Procedures Referred By Contact Referred To Contact [facility] Diagnoses Hand pain Procedures HAND PAIN [facility] [address] [place] [address] Referral ID Status Reason Start Date Expiration Date V isits Requested Visits Authorized [id number] Closed OON/Self Pay Override 09/11/2022 09/01/2023 1 [...] [facility] Destiney Pendleton APRN.ADMINISTRATIVE INTERN [address] [place] [address] [facility] [address] [place] [address] Referral ID Status Reason Start Date Expiration Date V isits Requested Visits Authorized [id number] Closed Auto-Generate d Referral 09/28/2022 10/28/2023 1 1 Specialty Diagnoses / Procedures Referred By Contac t Referred To Contact [facility] Diagnoses Encounter for screening mammogram for high-risk patient Procedures mamograms screening Ifeoma Davis MD [address] [place] [address] [facility] [address] [place] [address] Referral ID Status Reason Start Date Expiration Date V isits Requested Visits Authorized [id number] Closed OON/Self Pay Override 09/11/2022 09/01/2023 1 1 Reason Onset Date Comments Refill Request 07/23/2023 Reason Comments Glaucoma Follow Up 6 month HVF 24-2 OU & MAC OCT Reason Onset Date Comments Population Health Navigation Outreach 10/04/2023 [facility] Care Gaps Reason Onset Date Comments Population Health Navigation Outreach 10/25/2023 [facility] AWV Reason Onset Date Comments Refill Request [...] Reason Comments Letter Reason Onset Date Comments [facility] Health Navigation Outreach 05/29/2024 Med adherence Reason Comments F/U 6 months needs some home heal th care due to vision loss Reason Onset Date Comments [facility] [place][Note 2] Navigation Outreach 06/12/2024 Bradly Hollowaydomingasalo Lex Javier PCSA Reason Onset Date Comments [facility] [place][Note 2] Navigation Outreach 06/15/2024 Med Adherence Reason Comments Patient Question Reason Onset Date Comments Refill Request 06/29/2024 Reason Comments Headache TINOCO, bodyaches, fatig ue x 3 days Reason Comments Orders Reason Comments Fax Request Reason Comments Results Reason Onset Date Comments [facility] [place][Note 2] Navigation Outreach 08/10/2024 Bradly Hollowaydomingasalo Burnett Yaya [...] Reason Comments Recheck 10/31/24 UA done at [facility] care, always tired Reason Comments Recheck 2 [...] 4/> ADDL BRIDGET ATTND POLYSOMNOGRAM Kimberley Byrd APRN.ADMINISTRATIVE INTERN [address] [place] [address] Phone: tel: fax: [facility] [address] [place] [address] Phone: tel: fax: Referral ID Status Reason Start Date Expiration Date Visits Re quested Visits Authorized [id number] Closed 11/04/2024 09/01/2025 1 1 Reason Comments [...] Care Teams (unrecognized sec tion and content) Insulator Cutter And Former Relationship Specialty Start Date End Date Ifeoma Davis MD [address] [place] [address] PCP - General Internal Medicine 12/07/14 Insulator Cutter And Former Relationship Specialty Start Date End Date Ifeoma Davis MD [address] [place] [address] PCP - General Internal Medicine 12/07/14 Insulator Cutter And Former Relationship Specialty Start Date End Date Ifeoma Davis MD [address] [facility] [place] [address] PCP - General Internal Medicine 12/07/14 Insulator Cutter And Former Relationship Specialty Start Date End Date Ifeoma Davis MD [address] [facility] [place] [address] PCP - General Internal Medicine 12/07/14 Insulator Cutter And Former Relationship Specialty Start Date End Date Ifeoma Davis MD [address] [facility] [place] [address] PCP - General Internal Medicine 12/07/14 Insulator Cutter And Former Relationship Specialty Start Date End Date Ifeoma Davis MD [address] [place] [address] PCP - General Internal Medicine 12/07/14 Insulator Cutter And Former Relationship Specialty Start Date End Date Ifeoma Davis MD [address] [place] [address] PCP - General Internal Medicine 12/07/14 Insulator Cutter And Former Relationship Specialty Start Date End Date Ifeoma Davis MD [address] [place] [address] PCP - General Internal Medicine 12/07/14 Insulator Cutter And Former Relationship Specialty Start Date End Date Ifeoma Davis MD [address] [place] [address] PCP - General Internal Medicine 12/07/14 Insulator Cutter And Former Relationship Specialty Start Date End Date Ifeoma Davis MD [address] [place] [address] PCP - General Internal Medicine 12/07/14 Insulator Cutter And Former Relationship Specialty Start Date End Date Ifeoma Davis MD [address] [place] [address] PCP - General Internal Medicine 12/07/14 Insulator Cutter And Former Relationship Specialty Start Date End Date Ifeoma Davis MD [address] [place] [address] PCP - General Internal Medicine 12/07/14 Insulator Cutter And Former Relationship Specialty Start Date End Date Ifeoma Davis MD [address] [place] [address] PCP - General Internal Medicine 12/07/14 Insulator Cutter And Former Relationship Specialty Start Date End Date Ifeoma Davis MD [address] [place] [address] PCP - General Internal Medicine 12/07/14 Insulator Cutter And Former Relationship Specialty Start Date End Date Ifeoma Davis MD [address] [place] [address] PCP - General Internal Medicine 12/07/14 Insulator Cutter And Former Relationship Specialty Start Date End Date Ifeoma Davis MD [address] [facility] [place] [address] PCP - General Internal Medicine 12/07/14 Insulator Cutter And Former Relationship Specialty Start Date End Date Ifeoma Davis MD [address] [facility] [place] [address] PCP - General Internal Medicine 12/07/14 Insulator Cutter And Former Relationship Specialty Start Date End Date Ifeoma Davis MD [address] [place] [address] PCP - General Internal Medicine 12/07/14 Insulator Cutter And Former Relationship Specialty Start Date End Date Ifeoma Davis MD [address] [facility] [place] [address] PCP - General Internal Medicine 12/07/14 Insulator Cutter And Former Relationship Specialty Start Date End Date Ifeoma Davis MD [address] [facility] [place] [address] PCP - General Internal Medicine 12/07/14 Insulator Cutter And Former Relationship Specialty Start Date End Date Ifeoma Davis MD [address] [facility] [place] [address] PCP - General Internal Medicine 12/07/14 Insulator Cutter And Former Relationship Specialty Start Date End Date Ifeoma Davis MD [address] [facility] [place] [address] PCP - General Internal Medicine 12/07/14 Insulator Cutter And Former Relationship Specialty Start Date End Date Ifeoma Davis MD [address] [place] [address] PCP - General Internal Medicine 12/07/14 Insulator Cutter And Former Relationship Specialty Start Date End Date Ifeoma Davis MD [address] [facility] [place] [address] PCP - General Internal Medicine 12/07/14 Insulator Cutter And Former Relationship Specialty Start Date End Date Ifeoma Davis MD [address] [place] [address] PCP - General Internal Medicine 12/07/14 Insulator Cutter And Former Relationship Specialty Start Date End Date Ifeoma Davis MD [address] [place] [address] PCP - General Internal Medicine 12/07/14 Insulator Cutter And Former Relationship Specialty Start Date End Date Ifeoma Davis MD [address] [place] [address] PCP - General Internal Medicine 12/07/14 Insulator Cutter And Former Relationship Specialty Start Date End Date Ifeoma Davis MD [address] [place] [address] PCP - General Internal Medicine 12/07/14 Insulator Cutter And Former Relationship Specialty Start Date End Date Ifeoma Davis MD [address] [place] [address] PCP - General Internal Medicine 12/07/14 Insulator Cutter And Former Relationship Specialty Start Date End Date Ifeoma Davis MD [address] [place] [address] PCP - General Internal Medicine 12/07/14 Insulator Cutter And Former Relationship Specialty Start Date End Date Ifeoma Davis MD [address] [place] [address] PCP - General Internal Medicine 12/07/14 Insulator Cutter And Former Relationship Specialty Start Date End Date Ifeoma Davis MD [address] [place] [address] PCP - General Internal Medicine 12/07/14 Insulator Cutter And Former Relationship Specialty Start Date End Date Ifeoma Davis MD [address] [place] [address] PCP - General Internal Medicine 12/07/14 Insulator Cutter And Former Relationship Specialty Start Date End Date Ifeoma Davis MD [address] [place] [address] PCP - General Internal Medicine 12/07/14 Insulator Cutter And Former Relationship Specialty Start Date End Date Ifeoma Davis MD [address] [place] [address] PCP - General Internal Medicine 12/07/14 Insulator Cutter And Former Relationship Specialty Start Date End Date Ifeoma Davis MD [address] [place] [address] PCP - General Internal Medicine 12/07/14 Team Status: Active Member Role Status Dates Dr. Ifeoma Davis MD Family Provider Active Dr. Ifeoma Davis MD Primary Care Provider Active Team Status: Inactive Member Role Status Dates Dr. Ifeoma Davis MD Primary Care Provider Active CAREY VALLE Attending Provider, Referring Provide r Active Insulator Cutter And Former Relationship Specialty Start Date End Date Ifeoma Davis MD [address] [place] [address] PCP - General Internal Medicine 12/07/14 Insulator Cutter And Former Relationship Specialty Start Date End Date Ifeoma Davis MD [address] [place] [address] PCP - General Internal Medicine 12/07/14 Insulator Cutter And Former Relationship Specialty Start Date End Date Ifeoma Davis MD [address] [place] [address] PCP - General Internal Medicine 12/07/14 Insulator Cutter And Former Relationship Specialty Start Date End Date Ifeoma Davis MD [address] [place] [address] PCP - General Internal Medicine 12/07/14 Insulator Cutter And Former Relationship Specialty Start Date End Date Ifeoma Davis MD [address] [place] [address] PCP - General Internal Medicine 12/07/14 Insulator Cutter And Former Relationship Specialty Start Date End Date Ifeoma Davis MD [address] [place] [address] PCP - General Internal Medicine 12/07/14 Insulator Cutter And Former Relationship Specialty Start Date End Date Ifeoma Davis MD [address] [place] [address] PCP - General Internal Medicine 12/07/14 Insulator Cutter And Former Relationship Specialty Start Date End Date Ifeoma Davis MD [address] [place] [address] PCP - General Internal Medicine 12/07/14 Insulator Cutter And Former Relationship Specialty Start Date End Date Ifeoma Davis MD [address] [place] [address] PCP - General Internal Medicine 12/07/14 Insulator Cutter And Former Relationship Specialty Start Date End Date Ifeoma Davis MD [address] [place] [address] PCP - General Internal Medicine 12/07/14 Insulator Cutter And Former Relationship Specialty Start Date End Date Ifeoma Davis MD [address] [place] [address] PCP - General Internal Medicine 12/07/14 Insulator Cutter And Former Relationship Specialty Start Date End Date Ifeoma Davis MD [address] [place] [address] PCP - General Internal Medicine 12/07/14 Insulator Cutter And Former Relationship Specialty Start Date End Date Ifeoma Davis MD [address] [facility] [place] [address] PCP - General Internal Medicine 12/07/14 Insulator Cutter And Former Relationship Specialty Start Date End Date Ifeoma Davis MD [address] [place] [address] PCP - General Internal Medicine 12/07/14 Team [...] Pozo DO Attending Provider, Referring Provider Active Insulator Cutter And Former Relationship Specialty Start Date End Date Ifeoma Davis MD [address] [place] [address] PCP - General Internal Medicine 12/07/14 Insulator Cutter And Former Relationship Specialty Start Date End Date Ifeoma Davis MD [address] [facility] [place] [address] PCP - General Internal Medicine 12/07/14 Insulator Cutter And Former Relationship Specialty Start Date End Date Ifeoma Davis MD [address] [place] [address] PCP - General Internal Medicine 12/07/14 Insulator Cutter And Former Relationship Specialty Start Date End Date Ifeoma Davis MD [address] [place] [address] PCP - General Internal Medicine 12/07/14 Insulator Cutter And Former Relationship Specialty Start Date End Date Ifeoma Davis MD [address] [place] [address] PCP - General Internal Medicine 12/07/14 Insulator Cutter And Former Relationship Specialty Start Date End Date Ifeoma Davis MD [address] [place] [address] PCP - General Internal Medicine 12/07/14 Insulator Cutter And Former Relationship Specialty Start Date End Date Ifeoma Davis MD [address] [place] [address] PCP - General Internal Medicine 12/07/14 Insulator Cutter And Former Relationship Specialty Start Date End Date Ifeoma Davis MD [address] [place] [address] PCP - General Internal Medicine 12/07/14 Insulator Cutter And Former Relationship Specialty Start Date End Date Ifeoma Davis MD [address] [place] [address] PCP - General Internal Medicine 12/07/14 Insulator Cutter And Former Relationship Specialty Start Date End Date Ifeoma Davis MD [address] [place] [address] PCP - General Internal Medicine 12/07/14 Insulator Cutter And Former Relationship Specialty Start Date End Date Ifeoma Davis MD [address] [place] [address] PCP - General Internal Medicine 12/07/14 Insulator Cutter And Former Relationship Specialty Start Date End Date Ifeoma Davis MD [address] [place] [address] PCP - General Internal Medicine 12/07/14 Insulator Cutter And Former Relationship Specialty Start Date End Date Ifeoma Davis MD [address] [place] [address] PCP - General Internal Medicine 12/07/14 Insulator Cutter And Former Relationship Specialty Start Date End Date Ifeoma Davis MD [address] [facility] [place] [address] PCP - General Internal Medicine 12/07/14 Insulator Cutter And Former Relationship Specialty Start Date End Date Ifeoma Davis MD [address] [place] [address] PCP - General Internal Medicine 12/07/14 Insulator Cutter And Former Relationship Specialty Start Date End Date Ifeoma Davis MD [address] [place] [address] PCP - General Internal Medicine 12/07/14 Virginia Avalos PA-C [address] [place] [address] [facility] 08/09/24 David Anna APRN.CNP [address] [place] [address] [facility] 08/09/24 Domitila Knapp PA-C [address] [place] [address] [facility] 08/09/24 Insulator Cutter And Former Relationship Specialty Start Date End Date Ifeoma Davis MD [address] [place] [address] PCP - General Internal Medicine 12/07/14 Virginia Avalos PA-C [address] [place] [address] [facility] David Anna APRN.ADMINISTRATIVE INTERN [address] [place] [address] [facility] 08/09/24 Domitila Knapp PA-C [address] [place] [address] Formerly [facility] 08/09/24 Insulator Cutter And Former Relationship Specialty Start Date End Date Ifeoma Davis MD [address] [place] [address] PCP - General Internal Medicine 12/07/14 Virginia Avalos PA-C [address] [place] [address] Formerly [facility] 08/09/24 David Anna APRN.ADMINISTRATIVE INTERN [address] [place] [address] [facility] 08/09/24 Domitila Knapp PA-C [address] [place] [address] Formerly [facility] 08/09/24 Insulator Cutter And Former Relationship Specialty Start Date End Date Ifeoma Davis MD [address] [place] [address] PCP - General Internal Medicine 12/07/14 Virginia Avalos PA-C [address] [place] [address] [facility] 08/09/24 David Anna APRN.ADMINISTRATIVE INTERN [address] [place] [address] [facility] 08/09/24 Domitila Knapp PA-C [address] [place] [address] [facility] 08/09/24 Insulator Cutter And Former Relationship Specialty Start Date End Date Ifeoma Davis MD [address] [place] [address] PCP - General Internal Medicine 12/07/14 Virginia Avalos PA-C [address] [place] [address] [facility] 08/09/24 David Anna APRN.ADMINISTRATIVE INTERN [address] [place] [address] [facility] 08/09/24 Domitila Knapp PA-C [address] [place] [address] [facility] 08/09/24 Insulator Cutter And Former Relationship Specialty Start Date End Date Ifeoma Davis MD [address] [place] [address] PCP - General Internal Medicine 12/07/14 Virginia Avalos PA-C [address] [place] [address] [facility] 08/09/24 David Anna APRN.ADMINISTRATIVE INTERN [address] [place] [address] [facility] 08/09/24 Domitila Knapp PA-C [address] [place] [address] Formerly [facility] 08/09/24 Insulator Cutter And Former Relationship Specialty Start Date End Date Ifeoma Davis MD [address] [place] [address] PCP - General Internal Medicine 12/07/14 Virginia Avalos PA-C [address] [place] [address] Formerly [facility] 08/09/24 David Anna APRN.ADMINISTRATIVE INTERN [address] [place] [address] [facility] Internal Medicine 08/09/24 Domitila Knapp PA-C [address] [place] [address] Formerly [facility] 08/09/24 Insulator Cutter And Former Relationship Specialty Start Date End Date Ifeoma Davis MD [address] [place] [address] PCP - General Internal Medicine 12/07/14 Virginia Avalos PA-C [address] [place] [address] [facility] Family Medicine 08/09/24 David Anna APRN.ADMINISTRATIVE INTERN [address] [facility] [place] [address] [facility] 08/09/24 Domitila Knapp PA-C [address] [place] [address] [facility] 08/09/24 Insulator Cutter And Former Relationship Specialty Start Date End Date Ifeoma Davis MD [address] [place] [address] PCP - General Internal Medicine 12/07/14 Virginia Avalos PA-C [address] [place] [address] [facility] 08/09/24 David Anna APRN.ADMINISTRATIVE INTERN [address] [facility] [place] [address] [facility] 08/09/24 Domitila Knapp PA-C [address] [place] [address] [facility] 08/09/24 Insulator Cutter And Former Relationship Specialty Start Date End Date Ifeoma Davis MD [address] [place] [address] PCP - General Internal Medicine 12/07/14 Virginia Avalos PA-C [address] [place] [address] [facility] 08/09/24 David Anna APRN.ADMINISTRATIVE INTERN [address] [place] [address] [facility] 08/09/24 Domitila Knapp PA-C [address] [place] [address] [facility] 08/09/24 Insulator Cutter And Former Relationship Specialty Start Date End Date Ifeoma Davis MD [address] [place] [address] PCP - General Internal Medicine 12/07/14 Virginia Avalos PA-C [address] [place] [address] [facility] 08/09/24 David Anna APRN.ADMINISTRATIVE INTERN [address] [place] [address] [facility] 08/09/24 Domitila Knapp PA-C [address] [place] [address] [facility] 08/09/24 Insulator Cutter And Former Relationship Specialty Start Date End Date Ifeoma Davis MD [address] [place] [address] PCP - General Internal Medicine 12/07/14 Virginia Avalos PA-C [address] [place] [address] [facility] Family Medicine 08/09/24 David Anna APRN.ADMINISTRATIVE INTERN [address] [place] [address] [facility] 08/09/24 Domitila Knapp PA-C [address] [place], [place] [address] Formerly [facility] 08/09/24 Insulator Cutter And Former Relationship Specialty Start Date End Date Ifeoma Davis MD [address] [place], [place] [address] PCP - General Internal Medicine 12/07/14 Virginia Avalos PA-C [address] [place] [address] [facility] 08/09/24 David Anna APRN.ADMINISTRATIVE INTERN [address] [place], [place] [address] [facility] Internal [facility] 08/09/24 Domitila Knapp PA-C [address] [place], [place] [address] Formerly [facility] 08/09/24 Team Status: Inactive Member Role [...] November 24, 2024 End: November 24, 2024 NP. Allie Prakash Attending Provider Active Star t: November 24, 2024 End: November 24, 2024 BREAD JOCKEYJermaine Prakash Referring Provider Active Star t: November 24, 2024 End: November 24, 2024 Insulator Cutter And Former Relationship Specialty Start Date End Date Ifeoma Davis MD [address] [place], [place] [id number] PCP - General Internal Medicine 12/07/14 David Anna APRN.ADMINISTRATIVE INTERN [address] [facility] [place] [address] [facility] 08/09/24 Insulator Cutter And Former Relationship Specialty Start Date End Date Ifeoma Davis MD [address] [place] [address] PCP - General Internal Medicine 12/07/14 David Anna APRN.ADMINISTRATIVE INTERN [address] [place] [address] [facility] 08/09/24 Insulator Cutter And Former Relationship Specialty Start Date End Date Ifeoma Davis MD [address] [place] [address] PCP - General Internal Medicine 12/07/14 David Anna APRN.ADMINISTRATIVE INTERN [address] [place] [address] [facility] 08/09/24 Insulator Cutter And Former Relationship Specialty Start Date End Date Ifeoma Davis MD [address] [place] [address] PCP - General Internal Medicine 12/07/14 Virginia Avalos PA-C [address] [place] [address] [facility] 08/09/24 11/22/24 David Anna APRN.ADMINISTRATIVE INTERN [address] [place] [address] [facility] 08/09/24 Domitila Knapp PA-C [address] [place] [address] [facility] 08/09/24 11/22/24 Insulator Cutter And Former Relationship Specialty Start Date End Date Ifeoma Davis MD [address] [place] [address] PCP - General Internal Medicine 12/07/14 David Anna APRN.ADMINISTRATIVE INTERN [address] [place] [address] [facility] 08/09/24 Insulator Cutter And Former Relationship Specialty Start Date End Date Ifeoma Davis MD [address] [place] [address] PCP - General Internal Medicine 12/07/14 David Anna APRN.ADMINISTRATIVE INTERN [address] [place] [address] [facility] 08/09/24 Insulator Cutter And Former Relationship Specialty Start Date End Date Ifeoma Davis MD [address] [place] [address] PCP - General Internal Medicine 12/07/14 David Anna APRN.ADMINISTRATIVE INTERN [address] [place] [address] [facility] 08/09/24 Insulator Cutter And Former Relationship Specialty Start Date End Date Ifeoma Davis MD [address] [place] [address] PCP - General Internal Medicine 12/07/14 Virginia Avalos PA-C [address] [place] [phone] [employer] [facility] 08/09/24 11/22/24 David Anna APRN.ADMINISTRATIVE INTERN [address] [place], [place] [id number] [facility] Internal Medicine 08/09/24 Domitila Knapp PA-C [address] [place], [place] [address] Formerly [facility], [facility] 08/09/24 11/22/24 Insulator Cutter And Former Relationship Specialty Start Date End Date Ifeoma Davis MD [address] [place], [place] [id number] PCP - General Internal Medicine 12/07/14 David Anna APRN.ADMINISTRATIVE INTERN [address] [place] [address] [facility] Internal Medicine 08/09/24 Team Status: Active Member [...] November 24, 2024 End: November 24, 2024 NP. Allie Prakash Attending Provider Active Star t: November 24, 2024 End: November 24, 2024 NP. Allie Prakash Referring Provider Active Star t: [...] March 10, 2025 End: March 10, 2025 Insulator Cutter And Former Relationship Specialty Start Date End Date Ifeoma Davis MD [address] [place], [place] [address] PCP - General Internal Medicine 12/07/14 David Anna, MURTAZA.ADMINISTRATIVE INTERN [address] [place], [place] 357171 [facility] 08/09/24 Insulator Cutter And Former Relationship Specialty Start Date End Date Ifeoma Davis MD [address] [place], [place] [address] PCP - General Internal Medicine 12/07/14 David Anna, BEAD CUTTER.ADMINISTRATIVE INTERN [address] [place], [place] [id number] [facility] 08/09/24 Insulator Cutter And Former Relationship Specialty Start Date End Date Ifeoma Davis MD [address] [facility] [place] [address] PCP - General Internal Medicine 12/07/14 David Anna, BEAD CUTTER.ADMINISTRATIVE INTERN [address] [place] [address] [facility] 08/09/24 Insulator Cutter And Former Relationship Specialty Start Date End Date Ifeoma Davis MD [address] [place] [address] PCP - General Internal Medicine 12/07/14 David Anna, BEAD CUTTER.ADMINISTRATIVE INTERN [address] [place] [address] [facility] 08/09/24 Insulator Cutter And Former Relationship Specialty Start Date End Date Ifeoma Davis MD [address] [place] [address] PCP - General Internal Medicine 12/07/14 David nAna, BEAD CUTTER.ADMINISTRATIVE INTERN [address] [place] [address] [facility] 08/09/24 Insulator Cutter And Former Relationship Specialty Start Date End Date Ifeoma Davis MD [address] [place] [address] PCP - General Internal Medicine 12/07/14 David Anna, BEAD CUTTER.ADMINISTRATIVE INTERN [address] [place] [address] [facility] 08/09/24 Insulator Cutter And Former Relationship Specialty Start Date End Date Ifeoma Davis MD [address] [place] [address] PCP - General Internal Medicine 12/07/14 David Anna APRN.ADMINISTRATIVE INTERN [address] [place], [place] [phone] [facility] 08/09/24 Insulator Cutter And Former Relationship Specialty Start Date End Date Ifeoma Davis MD [address] [place], [place] [address] PCP - General Internal Medicine 12/07/14 Virginia Avalos PA-C [address] [place], [place] [id number] [phone] [facility] 08/09/24 11/22/24 David Anna APRN.ADMINISTRATIVE INTERN [address] [place] [address] [facility] 08/09/24 Domitila Knapp PA-C [address] [place] [address] [facility] 08/09/24 11/22/24 Insulator Cutter And Former Relationship Specialty Start Date End Date Ifeoma Davis MD [address] [place] [address] PCP - General Internal Medicine 12/07/14 Virginia Avalos PA-C [address] [place] [phone] [facility] 08/09/24 11/22/24 David Anna APRN.ADMINISTRATIVE INTERN [address] [place] [address] [facility] 08/09/24 Domitila Knapp PA-C [address] [place] [address] [facility] 08/09/24 11/22/24 Team Status: Inactive [...] April 16, 2025 End: April 16, 2025 Insulator Cutter And Former Relationship Specialty Start Date End Date Ifeoma Davis MD [address] [facility], [place] [address] PCP - General Internal Medicine 12/07/14 David Anna, BEAD CUTTER.ADMINISTRATIVE INTERN [address] [facility], [place] [phone] [facility] 08/09/24 Insulator Cutter And Former Relationship Specialty Start Date End Date Ifeoma Davis MD [address] [facility], [place] [address] PCP - General Internal Medicine 12/07/14 David Anna, BEAD CUTTER.ADMINISTRATIVE INTERN [address] [facility] [place] [address] [facility] 08/09/24 Insulator Cutter And Former Relationship Specialty Start Date End Date Ifeoma Davis MD [address] [facility], [place] [address] PCP - General Internal Medicine 12/07/14 David Anna, BEAD CUTTER.ADMINISTRATIVE INTERN [address] [facility], [place] [phone] [facility] 08/09/24 Team Status: Active Member [...] Intraprocedure 1030 (Given - Provid er: Jonathon Johnson MD)1033 (Given - Provider: Jonathon Johnson MD)1038 [...] (Given - Provid er: Jonathon Johnson MD) tccnyoql-rcbxkbsdi-cvgtarscwvqgt 3.5 mg/g-10,000 unit/g-0.1 % (POLYDEX) X (OR/PROCEDURE) PRN, Starting on Sat06/25/22 at 1128, Until Sat06/26/22 at 0303, Intraprocedure 1128 (Given - Provid er: Mallika Holloway RN) Povidone-Iodine 5 % ophth soln (BETADINE) X (OR/PROCEDURE) PRN, Starting on Sat06/25/22 at 1006, Until Tu06/26/22 at 0303, Intraprocedure 1006 (Given - Provid er: Mallika Holloway RN - Comment: One drop in eye at 1002) sod hyaluronate-sod chondroitin-sod hyaluronate intraocular kit (DUOVISC) X (OR/PROCEDURE) PRN, Starting on Sat06/25/22 at 1013, Until Sat06/26/22 at 0303, Intraprocedure 1013 (Given - Provid er: Jonathon Johnson MD) sodium hyaluronate 10 mg/mL injection [...] section and content) DATE CREATED AUTHOR 11/01/2022 [facility] nt DATE CREATED AUTHOR AUTHOR'S ORGANIZ ATION 11/09/2022 [facility] DATE CREATED AUTHOR AUTHOR'S ORGANIZ ATION 01/08/2025 [facility] DATE CREATED AUTHOR AUTHOR'S ORGANIZ ATION 06/23/2025 [facility] DATE CREATED AUTHOR AUTHOR'S ORGANIZ ATION 06/24/2025 [facility] Goals (unrecognized section and content) Goals may [...] BE BASED ON THE PRIMARY CLINICAL RECORDS. [facility]. provides no warranty or guarantee of the accuracy or completeness of information in this document.
[2025-06-29] MEDS: 0.9% Normal Saline (1000mL) 1,000 ML 999 ML IV (03:24)
[2025-06-29 03:38] LABS: Hematocrit 34.1 % (37-47); Hemoglobin 11.2 g/dL (12.0-15.0); Immature Granulocytes Count 0.020 X10^3/uL (0.0-0.0); Mean Corp Hgb Conc 32.8 g/dL (32-36); Mean Corpuscular Volume 90.0 fL (81-99); Mean Platelet Vol. 10.4 fl (6.2-12.0); NRBC Flagged by Analyzer 0 % (0-5); Platelet Count 311 K/mm3 (150-450); RBC Distribution Width CV 13.1 % (11.6-14.6); RBC Distribution Width SD 43.0 fl (35.1-43.9); Red Blood Count 3.79 M/mm3 (4.2-5.4); White Blood Count 6.8 K/mm3 (4.4-11.0)
--- NOTE | 2025-06-29 03:40 | RAD_ITS ---
PROCEDURE: CHEST 1 VIEW (PORTABLE) 06/29/2025 REASON FOR EXAM: WEAKNESS TECHNIQUE: Frontal view of the chest. COMPARISON: None FINDINGS: The lungs are expanded. There is no demonstrated parenchymal abnormality. There is no demonstrated pleural abnormality. Normal heart and pericardium. Normal visualized aortic arch and descending thoracic aorta. No acute osseous abnormalities . There is no demonstrated abnormality of the visualized soft tissue structures of the upper abdomen. RAD/Chest 1 View (Portable) IMPRESSION: No acute cardiopulmonary process [facility]
[2025-06-29 04:13] LABS: AST(SGOT) 17 U/L (<=31); Alanine Aminotransfer ALT/SGPT 16 U/L (<=34); Albumin, Serum 4.1 g/dL (3.5-5.0); Alkaline Phosphatase 113 U/L (35-104); Anion Gap 9 (5-15); BUN 17 mg/dL (4-19); BUN/Creat Ratio 16.5 RATIO (10-20); Bilirubin, Direct 0.10 mg/dL (0.00-0.30); Calcium,Total 9.4 mg/dL (7.6-11.0); Carbon Dioxide 26.6 mmol/L (21.0-32.0); Chloride 102 mmol/L (98-108); Estimated Creatinine Clearance 54.95 ml/min (50-250); Globulin 2.5 g/dL (2.2-4.2); Glucose 97 mg/dL (70-99); Lipase 22 U/L (13-75); Magnesium 2.1 mg/dL (1.5-2.2); Potassium 4.4 mmol/L (3.3-5.1)
[2025-06-29 04:30] LABS: Mucous, Urine 0 SEEN /hpf (<or=2+)
[2025-06-29 04:31] LABS: Color, Urine Yellow (Yellow); Glucose, Dipstick Normal (Normal); Ketone-Dipstick Negative (Negative); Leukocyte Esterase-Dipstick 100 /ul (Negative); Nitrite-Dipstick Negative (Negative); Occult Blood-Urine Negative /ul (Negative); Protein-Dipstick Negative (Negative); Specific Gravity, Urine 1.010 (1.002-1.030); Urine Bilirubin Dipstick Negative (Negative)
[2025-06-29 04:44] VITALS: BP 125/66; PULSE 66; RESP 17; O2SAT 98
[2025-06-29 04:53] LABS: Red Blood Cells-Urine 0-5 SEEN /hpf (0-5); Squamous Epithelial Cells - UA 0-5 SEEN /hpf (5-10); Transitional Epithelial - Ur 0-5 SEEN /hpf (0-5)
--- NOTE | 2025-06-29 05:11 | EDS_ITS ---
HPI History of Present Illness Chief Complaint: Weakness Informant: patient and EMS Narrative Narrative: Patient is a 55-year-old female with past medical history of fibromyalgia hypertension and hyperlipidemia. She states that she has been having her medication adjusted as she needs to come off certain medications in order to receive surgery. She states that she has been having difficulty sleeping secondary to this and that this evening despite taking Benadryl and 100 mg of trazodone could not fall asleep. Associate with the insomnia she just feels reported weak. She states this is a generalized weakness and not focal. She denies any fevers or chills. She denies any known sick contact. However because of the overall unwell feeling she is concerned there may be a developing infection and with this comes in for evaluation [facility] Medical History (Updated 06/29/25 @ 22:[address] Renato Hanley, DO) PXE (pseudoxanthoma elasticum) Wears glasses Depression Anxiety High cholesterol Ambulates with cane GERD (gastroesophageal reflux disease) Non-smoker Hip arthritis Degenerative scoliosis Lumbar radiculopathy Spondylolisthesis History of trigger finger Fibromyalgia Restless legs Hot flashes Legal blindness of both eyes as defined in [place] PXE (pseudoxanthoma elasticum) Hypertension Home Medications ?Medication ?Instructions ?Recorded ?Last Taken ?Type atorvastatin 40 mg tablet 40 mg PO QHS HLD 01/17/17 Un known History meloxicam 15 mg tablet 15 mg PO DAILY PAIN 11/20/21 Unknown History omeprazole 20 mg capsule,delayed 20 mg PO DAILY GERD 0 11/20/21 Unknown History release amlodipine 2.5 mg tablet 2.5 mg PO QDAY HTN 12/09/24 Unknown History aspirin 81 mg tablet,delayed 81 mg PO QDAY HEART HEALT H 12/09/24 Unknown History release (Adult Low Dose Aspirin) escitalopram oxalate 10 mg tablet 10 mg PO QDAY ANXIET Y 12/09/24 Unknown History estradiol 0.1 mg/24 hr semiweekly 1 patch transdermal QWEEK HORMONE 12/09/24 Unknown History transdermal patch (Darling) REPLACEMENT lisinopril 10 1 tab PO QDAY HTN 12/09/24 U nknown History mg-hydrochlorothiazide 12.5 mg tablet magnesium 200 mg tablet 200 mg PO QDAY SUPPLEMENT Unknown History zolpidem 5 mg tablet 5 mg PO QHS PRN sleep Unknown History fluticasone propionate 50 2 spray intranasal QDAY KRSITI RGIES 03/10/25 Unknown History mcg/actuation nasal spray,suspension oxycodone-acetaminophen 5 mg-325 0.5 - 1 tab PO TID ME N pain 03/10/25 Unknown History mg tablet cyclobenzaprine 10 mg tablet 10 mg PO HS MUSCLE SPASM 06/04/25 Unknown History Lactobacillus 25 billion 1 cap PO DAILY SUPPLMENT 06/26 Unknown History cell-Bifido 25 billion aqnw-HMV-ybypi capsule cevimeline 30 mg capsule 1 cap PO DAILY DRY MOUTH 06/26 Unknown History cholecalciferol (vitamin D3) 50 50 mcg PO DAILY SUPPLE MENT 06/11/25 Unknown History mcg (2,000 unit) capsule (Vitamin D3) progesterone micronized 100 mg 100 mg PO QHS HORMONE R EPLACMENT 06/11/25 Unknown History capsule bupropion HCl 150 mg 24 hr tablet, 150 mg PO DAILY Unknown History extended release clopidogrel 75 mg tablet (Plavix) 75 mg PO DAILY #30 t abs 06/17/25 Unknown Rx gabapentin 100 mg capsule 100 mg PO DAILY 06/17/25 Unk nown History potassium chloride 10 mEq 10 meq PO DAILY 06/17/25 Unk nown History tablet,extended release prednisolone acetate 1 % eye 1 drp LEFT EYE 4X/DAY Unknown History drops,suspension timolol maleate 0.5 % eye drops 1 drp LEFT EYE BID Unknown History trazodone 100 mg tablet 100 mg PO QHS 06/17/25 Unkno wn History triamcinolone acetonide 0.025 % applic topical BID Unknown History topical cream Allergy/AdvReac Type Severity Reaction Status Date / Time hydrocodone bitartrate (From AdvReac Itching Verified 06/29/25 02:45 Vicodin) nitrofurantoin (From AdvReac Other Verified 06/29/25 02:45 Macrobid) nitrofurantoin AdvReac Other Verified 06/29/25 02:45 macrocrystalline (From Macrobid) propoxyphene (From AdvReac Other Verified 06/29/25 02:45 Darvocet-N) tramadol HCl (From Ultram) AdvReac Other Verified 06/29/25 02:45
--- NOTE | 2025-06-29 05:11 | EX.ED.DYSGE1 ---
HPI History of Present Illness Chief Complaint: Weakness Informant: patient and EMS Narrative Narrative: Patient is a 55-year-old female with past medical history of fibromyalgia hypertension and hyperlipidemia. She states that she has been having her medication adjusted as she needs to come off certain medications in order to receive surgery. She states that she has been having difficulty sleeping secondary to this and that this evening despite taking Benadryl and 100 mg of trazodone could not fall asleep. Associate with the insomnia she just feels reported weak. She states this is a generalized weakness and not focal. She denies any fevers or chills. She denies any known sick contact. However because of the overall unwell feeling she is concerned there may be a developing infection and with this comes in for evaluation [facility] Medical History (Updated 06/29/25 @ 22:[address] Renato Hanley, DO) PXE (pseudoxanthoma elasticum) Wears glasses Depression Anxiety High cholesterol Ambulates with cane GERD (gastroesophageal reflux disease) Non-smoker Hip arthritis Degenerative scoliosis Lumbar radiculopathy Spondylolisthesis History of trigger finger Fibromyalgia Restless legs Hot flashes Legal blindness of both eyes as defined in [place] PXE (pseudoxanthoma elasticum) Hypertension Home Medications ?Medication ?Instructions ?Recorded ?Last Taken ?Type atorvastatin 40 mg tablet 40 mg PO QHS HLD 01/17/17 Unknown History meloxicam 15 mg tablet 15 mg PO DAILY PAIN 11/20/21 Unknown History omeprazole 20 mg capsule,delayed 20 mg PO DAILY GERD 11/20/21 Unknown History release amlodipine 2.5 mg tablet 2.5 mg PO QDAY HTN 12/09/24 Unknown History aspirin 81 mg tablet,delayed 81 mg PO QDAY HEART HEALTH 12/09/24 Unknown History release (Adult Low Dose Aspirin) escitalopram oxalate 10 mg tablet 10 mg PO QDAY ANXIETY 12/09/24 Unknown History estradiol 0.1 mg/24 hr semiweekly 1 patch transdermal QWEEK HORMONE 12/09/24 Unknown History transdermal patch (Darling) REPLACEMENT lisinopril 10 1 tab PO QDAY HTN 12/09/24 Unknown History mg-hydrochlorothiazide 12.5 mg tablet magnesium 200 mg tablet 200 mg PO QDAY SUPPLEMENT 12/09/24 Unknown History zolpidem 5 mg tablet 5 mg PO QHS PRN sleep 12/09/24 Unknown History fluticasone propionate 50 2 spray intranasal QDAY ALLERGIES 03/10/25 Unknown History mcg/actuation nasal spray,suspension oxycodone-acetaminophen 5 mg-325 0.5 - 1 tab PO TID PRN pain 03/10/25 Unknown History mg tablet cyclobenzaprine 10 mg tablet 10 mg PO HS MUSCLE SPASM 06/04/25 Unknown History Lactobacillus 25 billion 1 cap PO DAILY SUPPLMENT 06/11/25 Unknown History cell-Bifido 25 billion [id number]-mpyrw capsule cevimeline 30 mg capsule 1 cap PO DAILY DRY MOUTH 06/11/25 Unknown History cholecalciferol (vitamin D3) 50 50 mcg PO DAILY SUPPLEMENT 06/11/25 Unknown History mcg (2,000 unit) capsule (Vitamin D3) progesterone micronized 100 mg 100 mg PO QHS HORMONE REPLACMENT 06/11/25 Unknown History capsule bupropion HCl 150 mg 24 hr tablet, 150 mg PO DAILY 06/17/25 Unknown History extended release clopidogrel 75 mg tablet (Plavix) 75 mg PO DAILY #30 tabs 06/17/25 Unknown Rx gabapentin 100 mg capsule 100 mg PO DAILY 06/17/25 Unknown History potassium chloride 10 mEq 10 meq PO DAILY 06/17/25 Unknown History tablet,extended release prednisolone acetate 1 % eye 1 drp LEFT EYE 4X/DAY 06/17/25 Unknown History drops,suspension timolol maleate 0.5 % eye drops 1 drp LEFT EYE BID 06/17/25 Unknown History trazodone 100 mg tablet 100 mg PO QHS 06/17/25 Unknown History triamcinolone acetonide 0.025 % applic topical BID 06/17/25 Unknown History topical cream Allergy/AdvReac Type Severity Reaction Status Date / Time hydrocodone bitartrate (From AdvReac Itching Verified 06/29/25 02:45 Vicodin) nitrofurantoin (From AdvReac Other Verified 06/29/25 02:45 Macrobid) nitrofurantoin AdvReac Other Verified 06/29/25 02:45 macrocrystalline (From Macrobid) propoxyphene (From AdvReac Other Verified 06/29/25 02:45 Darvocet-N) tramadol HCl (From Ultram) AdvReac Other Verified 06/29/25 02:45 Family History Father Lung cancer Mother COPD (chronic obstructive pulmonary disease) CVA (cerebral vascular accident) Son Myocardial infarction Other Breast cancer Ovarian cancer Surgical History History of eye surgery Status post glaucoma surgery S/P right knee arthroscopy S/P Social History household members: none housing: house Smoking Status: Never smoker alcohol intake: current alcohol intake frequency: holidays/special occasions only substance use type: does not use ROS ROS ED Constitutional Constitutional ED: Denies chills or fever(s) ENT ENT ED: Denies rhinorrhea or sore throat Cardiovascular Cardiovascular: Denies chest pain Respiratory/Chest Respiratory/Chest: Denies cough or dyspnea Gastrointestinal Gastrointestinal: Denies abdominal pain, diarrhea, nausea or vomiting Genitourinary Genitourinary ED: Denies dysuria Musculoskeletal Musculoskeletal: Denies myalgias Integumentary Denies rash Neurologic Neurologic: Reports weakness; Denies headache(s) Psychiatric Psychiatric: Reports other Details: Positive insomnia EXAM Physical Exam Const Vital Signs: 06/29/25 02:44 06/29/25 02:44 06/29/25 04:44 Temperature 98.5 F Temperature Source Oral Pulse Rate 72 66 Respiratory Rate 18 17 Respiratory Effort Normal Non-Labored Respiratory Pattern Normal Blood Pressure 133/80 H 125/66 H Blood Pressure Mean 97 85 Pulse Ox 98 98 Oxygen Delivery Method Room Air Room Air 06/29/25 05:17 06/29/25 06:00 Temperature 98.1 F Temperature Source Pulse Rate 68 Respiratory Rate 18 16 Respiratory Effort Respiratory Pattern Blood Pressure 108/58 L Blood Pressure Mean 74 Pulse Ox 99 Oxygen Delivery Method Positive well nourished and well developed General Appearance ED: well developed; Negative for pallor HEENT Reports dry mucous membranes HEENT Narrative: Normocephalic atraumatic No tongue or lip swelling no oral lesions no airway edema or compromise; no secondary findings in the posterior pharynx to suggest infection Mucous membranes are dry and tacky consistent with dehydration Mouth ED: Yes dry mucous membranes Mouth: dry mucous membranes Neck supple Neck Narrative: No nuchal rigidity or meningeal signs Resp normal respiratory effort and clear to auscultation bilaterally Resp Narrative: No nasal flaring retractions tachypnea or accessory muscle use Cardio regular rate and regular rhythm Rate: other Other Details: Heart is regular rate and rhythm without murmurs rubs or gallops Radial and carotid pulses are equal and symmetric GI normal to inspection, nondistended, normoactive bowel sounds, non-tender, non-distended and no masses GI Narrative: No voluntary guarding or rigidity or pulsatile mass Auscultation: normoactive bowel sounds Palpation: soft Extremity normal to inspection Extremity Narrative: No asymmetric edema no pitting edema negative Homans' sign bilaterally Neuro oriented x3, CN's II-XII intact bilaterally and no sensory deficits noted Sensorium / Orientation: alert Motor Exam: strength 5/5 throughout Psych mental status grossly normal Skin no rashes or lesions noted and No skin turgor normal Skin Narrative: Skin turgor is mildly increased General Skin Exam: Negative for jaundice or pallor MDM MDM MDM Narrative Medical decision making narrative: Patient arrived to ER with stable vitals. She had multiple complaints but the main 1 being she overall felt weak. However the weakness was generalized without focal findings and her neurologic exam was normal so I felt no need to activate a stroke alert. In order to assess for cause of the weakness such as acute blood loss anemia acute kidney injury electrolyte abnormality thyroid dysfunction or urinary tract infection did elect to perform basic laboratory studies. Labs revealed no clinically significant findings. The urine sample showed +1 bacteria but there are no white cells or nitrites present and therefore I feel this is normal kimmy and not true infection. patient's vitals remained stable throughout the ER visit. On reevaluation there remains no focal neurologic finding and therefore as overall workup is negative for findings of acute infection or acute kidney injury or electrolyte abnormality I do not feel the need for further intervention and she is otherwise safe for discharge. Also as I am not her family doctor I will refrain from prescribing education help with the insomnia and she can discuss potential medication adjustment with the family doctor regarding this History & Record Review Discussion w/independent historian: Patient Lab Data Attestation: I reviewed the patient's lab results. Labs: Laboratory Results - last 24 hr 06/29/25 06/29/25 03:25 04:26 WBC 6.8 RBC 3.79 L Hgb 11.2 L Hct 34.1 L MCV 90.0 MCH 29.6 MCHC 32.8 RDW Std Deviation 43.0 RDW Coeff of Roderick 13.1 Plt Count 311 MPV 10.4 Immature Gran % (Auto) 0.300 Neut % (Auto) 66.6 Lymph % (Auto) 15.4 L Wirt % (Auto) 14.2 H Eos % (Auto) 3.1 Baso % (Auto) 0.4 Absolute Neuts (auto) 4.5 Absolute Lymphs (auto) 1.05 Nucleated RBC % 0 Sodium 138 Potassium 4.4 Chloride 102 Carbon Dioxide 26.6 Anion Gap 9 BUN 17 Creatinine 1.01 Estim Creat Clear Calc 54.95 Est GFR (MDRD) Non-Af 65 BUN/Creatinine Ratio 16.5 Glucose 97 Calcium 9.4 Magnesium 2.1 Total Bilirubin 0.17 Direct Bilirubin 0.10 AST 17 ALT 16 Alkaline Phosphatase 113 H Total Protein 6.5 Albumin 4.1 Globulin 2.5 Lipase 22 TSH 5.840 H Urine Color Yellow Urine Clarity Clear Urine pH 6.5 Ur Specific Angier 1.010 Urine Protein Negative Urine Glucose (UA) Normal Urine Ketones Negative Urine Occult Blood Negative Urine Nitrite Negative Urine Bilirubin Negative Urine Urobilinogen Normal Ur Leukocyte Esterase 100 H Urine RBC 0-5 SEEN Urine WBC 0-5 SEEN Ur Squamous Epith Cells 0-5 SEEN Ur Transition Epith Cell 0-5 SEEN Urine Bacteria 1+ Urine Mucus 0 SEEN Radiography Diagnostic Testing: Clinical Impression(s) from Imaging Studies Chest X-Ray 06/29/25 03:40 IMPRESSION: No acute cardiopulmonary process Reading Location: [place] [address] Chest x-ray as interpreted by the emergency medicine physician reveals no acute infiltrate pneumothorax or pleural effusion Discharge Plan Triage Chief Complaint: Weakness ED Provider: Renato Hanley Dx/Rx/DC Orders Clinical Impression: Generalized weakness, Insomnia, Dehydration, Hypertension, Hyperlipidemia, Fibromyalgia Instructions: ED Dehydration (Adult), ED Insomnia, ED Weakness Uncertain Cause Prescriptions: No Action cyclobenzaprine 10 mg tablet 10 mg PO HS aspirin [Adult Low Dose Aspirin] 81 mg tablet,delayed release (DR/EC) 81 mg PO QDAY lisinopril-hydrochlorothiazide 10-12.5 mg tablet 1 tab PO QDAY zolpidem 5 mg tablet 5 mg PO QHS PRN (Reason: sleep) amlodipine 2.5 mg tablet 2.5 mg PO QDAY estradiol [Darling] 0.1 mg/24 hr patch semiweekly 1 patch transdermal QWEEK escitalopram oxalate 10 mg tablet 10 mg PO QDAY magnesium 200 mg tablet 200 mg PO QDAY oxycodone-acetaminophen 5-325 mg tablet 0.5 - 1 tab PO TID PRN (Reason: pain) fluticasone propionate 50 mcg/actuation spray,suspension 2 spray intranasal QDAY atorvastatin 40 MG tablet 40 mg PO QHS meloxicam 15 mg tablet 15 mg PO DAILY omeprazole 20 mg capsule,delayed release(DR/EC) 20 mg PO DAILY potassium chloride 10 mEq tablet extended release 10 meq PO DAILY trazodone 100 mg tablet 100 mg PO QHS gabapentin 100 mg capsule 100 mg PO DAILY bupropion HCl 150 mg tablet extended release 24 hr 150 mg PO DAILY prednisolone acetate 1 % drops,suspension 1 drp LEFT EYE 4X/DAY triamcinolone acetonide 0.025 % cream topical BID timolol maleate 0.5 % drops 1 drp LEFT EYE BID clopidogrel [Plavix] 75 mg tablet 75 mg PO DAILY Qty: 30 0RF progesterone micronized 100 mg capsule 100 mg PO QHS cholecalciferol (vitamin D3) [Vitamin D3] 50 mcg (2,000 unit) capsule 50 mcg PO DAILY cevimeline 30 mg capsule 1 cap PO DAILY Lacto no.82-Chcjym-DRD-larch 25B cell-25B cell-50 mg capsule 1 cap PO DAILY Primary Care Provider: Ifeoma Mustafa Referrals: Ifeoma Mustafa MD [Primary Care Provider, Internal Medicine] Activity Restrictions/Additional Instructions: Please continue all of your home medications as directed by your doctor. However with your increased trouble sleeping please talk to your family doctor about either increasing your trazodone or trying and other sleep aids such as Valium to help with symptoms. Your workup today revealed no obvious signs of infection or kidney damage or electrolyte issue. Return to the ER should you have any further concerns Print Language: Maltese Disposition Disposition: Home, Self Care Discharge Date/Time: 06/29/25 07:51
[2025-06-29 05:17] VITALS: BP 108/58; PULSE 68; RESP 18; TEMP 36.7; O2SAT 99
[2025-06-29 06:00] VITALS: RESP 16
== END 2025-06-29 07:51 | disposition home or self-care (01) ==
PROVIDERS: Emergency Provider Emergency Medicine; PCP Internal Medicine; Visit Provider Emergency Medicine
DX: R53.1 Weakness (principal); E86.0 Dehydration; E78.00 Pure hypercholesterolemia, unspecified; G47.00 Insomnia, unspecified; M79.7 Fibromyalgia; I10 Essential (primary) hypertension; K21.9 Gastro-esophageal reflux disease without esophagitis
CPT/HCPCS: 71045; 80048; 80076; 81001; 83690; 83735; 84443; 85025; 87631; 96361; 96374; 96375; 99285; A4216; J2405

== ENCOUNTER 2025-07-10 14:52 | Emergency (ER) | payer MEDICARE, MEDICAID, SELFPAY ==
[2025-07-10 14:53] VITALS: BP 125/85; PULSE 96; RESP 18; TEMP 35.7; O2SAT 98
--- OUTSIDE RECORDS SUMMARY | 2025-07-10 15:15 | XMS RPT_ITS | CCD ---
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 Ifeoma Davis MD Primary Care Provider Dr. Edgar Beltran MD Attending Provider NP. Allie Prakash Attending Provider NP. Allie Prakash Referring Provider Virginia Avalos PA-C Unavailable Domitila Knapp PA-C Unavailable THORPE, KIMBERLEY Referring Unavailable GANTA, IFEOMA Primary Care Unavailable Susan CORREIA, Dr. Dia Referring Provider [facility] , Dr. Fisher Attending Provider Susan CORREIA, Dr. Dia Primary Care Provider Susan CORREIA, Dr. Dia Referring Provider [phone] Lázarojones BENNETT, Dr. Fisher Attending Provider Ruby CORREIA, Dr. Hernández Attending Provider Rakesh CORREIA, Dr. Rodriguez Attending Provider Susan CORREIA, Dr. Dia Primary Care Physician [phone] Lázarojones BENNETT, Dr. Fisher Attending Physician Ruby CORREIA, Dr. Hernández Attending Physician Rakesh CORREIA, Dr. Rodriguez Attending Physician Rakesh CORREIA, Dr. Rodriguez Referring Provider Papi CORREIA, Dr. Zambrano Emergency Department Physician Papi CORREIA, Dr. Zambrano Attending Physician [facility], Dr. Fisher Referring [facility] Dr. Armstrong Attending Physician Wang , Dr. Armstrong Emergency Department Physici an [facility], Dr. Galarza Emergency Departmen t Physician [facility], Dr. Gross Emergency Department Physic marla GANTA, IFEOMA Primary Care Unavailable OLDER, DAVID Attending Unavailable GANTA, IFEOMA Primary Care Unavailable OLDER, DAVID Referring Unavailable GANTA, IFEOMA Primary Care Unavailable GANTA, IFEOMA Attending Unavailable GANTA, IFEOMA Primary Care Unavailable EMILY CHAPARRO Referring Unavailable DIAZ, TERESO S Attending Unavailable TERESO DIAZ Admitting Unavailable GANTA, IFEOMA Primary Care Unavailable GANTA, IFEOMA Primary Care Unavailable GANTA, IFEOMA Primary Care Unavailable DESTINEY MCKEON Attending Unavailable GANTA, IFEOMA Primary Care Unavailable GANTA, IFEOMA Primary Care Unavailable GANTA, IFEOMA Attending Unavailable GANTA, IFEOMA Primary Care Unavailable CALLI DUVALL Attending Unavailable GANTA, IFEOMA Primary Care Unavailable MICHELLE CHIN Attending Unavailable GANTA, IFEOMA Primary Care Unavailable GANTA, IFEOMA Attending Unavailable GANTA, IFEOMA Primary Care Unavailable SELF Referring Unavailable PAPARIZOSCYNTHIA Attending Unavailable BRII ALBERTS Attending Unavailable GANTA, IFEOMA Primary Care Unavailable GANTA, IFEOMA Primary Care Unavailable GANTA, IFEOMA Attending Unavailable GANTA, IFEOMA Primary Care Unavailable ADRIANA LUND Attending Unavailabl e AISLINN REYES Attending Unavailable GANTA, IFEOMA Primary Care Unavailable GANTA, IFEOMA Primary Care Unavailable CYNTHIA RAMOS Attending Unavailable GANTA, IFEOMA Primary Care Unavailable GANTA, IFEOMA Attending Unavailable GANTA, IFEOMA Primary Care Unavailable GANTA, IFEOMA Attending Unavailable GANTA, IFEOMA Primary Care Unavailable ANKUR CURTIS Referring Unavaila JANET Kemp Attending Unavailable GANTA, IFEOMA Primary Care Unavailable ADRIANA LUND Attending Unavailabl e EISENGART, ADRIANA A Admitting Unavailabl e GANTA, IFEOMA Primary Care [...] Primary Care Unavailable GANTA, IFEOMA Referring Unavailable Ruby, [place] Attending Unavailable Ganta, Ifeoma Primary Care Unavailable Ganta, Ifeoma Primary Care Unavailable Ruby, [place] Attending Unavailable Ganta, Ifeoma Primary Care Unavailable Petrolia, Allie Referring Unavailable PetroliaAllie arreola Attending Unavailable Ganta, Ifeoma Primary Care Unavailable Ruby, [place] Attending Unavailable Ganta, Ifeoma Primary Care Unavailable Ganta, Ifeoma Referring Unavailable Phillip Pozo Attending Unavailable Ganta, Ifeoma Primary Care Unavailable Ruby, [place] Attending Unavailable Ganta, Ifeoma Primary Care Unavailable Ganta, Ifeoma Referring Unavailable Michael Cameron Attending Unavailable Renato Hanley Attending Unavailable Ganta, Ifeoma Primary Care Unavailable Ganta, Ifeoma Primary Care Unavailable Turpin, Juan Manuel Attending Unavailable Ungur, Remus Attending Unavailable Ganta, Ifeoma Primary Care Unavailable Geovanni Sorto Attending Unavailabl e Ganta, Ifeoma Primary Care Unavailable Ganta, Ifeoma Primary Care Unavailable Lázaroruso, Phillip Attending Unavailable Nohelia, Phillip Admitting Unavailable Lázaroruso, Phillip Referring Unavailable Ganta, Ifeoma Primary Care Unavailable Cameron, Michael Referring Unavailable Cameron, Michael Attending Unavailable Borruso, Phillip Attending Unavailable Ganta, Ifeoma Primary Care Unavailable Borruso, Phillip Referring Unavailable Ganta, Ifeoma Primary Care Unavailable Ganta, Ifeoma Referring Unavailable Ganta, Ifeoma Attending Unavailable Ganta, Ifeoma Primary Care Unavailable Ganta, Ifeoma Referring Unavailable Cameron, Michael Attending Unavailable Ganta, Ifeoma Primary Care Unavailable Ganta, Ifeoma Referring Unavailable Borruso, Phillip Attending Unavailable Ganta, Ifeoma Primary Care Unavailable Ruby, [place] Attending Unavailable Ganta, Ifeoma Primary Care Unavailable Ganta, Ifeoma Referring Unavailable Borruso, Phillip Attending Unavailable Allergies Allergy Classification Reported Allergen(s) Allergy Type Date of Onset Reaction(s) Facility Acetaminophen / HYDROcodone (1 source) Acetaminophen / HYDROcodone Drug Allergy 04-28-20 12 Itching [facility] Nitrofurantoin (1 source) Nitrofurantoin Drug Allergy 03-05-20 Other: See Comments [facility] Opioid Agonists (4 sources) HYDROcodone Drug Allergy 03-12-20 06 Itching, Other: See Comments, Vomiting [facility] (20 sources) Acetaminophen / HYDROcodone; Translations: [HYDROCODONE-ACETA MINOPHEN] Drug Allergy 04-28-20 12 Itching [facility] Work Phone: (20 sources) HYDROcodone; Translations: [HYDROCODONE BITARTRATE] Drug Allergy 10-19-19 18 Itching [facility] (20 sources) Morphinan opioid; Translations: [OPIOIDS - MORPHINE ANALOGUES] Drug Allergy 03-05-20 20 Itching [facility] (20 sources) Nitrofurantoin; Translations: [NITROFURANTOIN] Drug Allergy 03-05-20 Other: See Comments [facility] (20 sources) Propoxyphene; Translations: [PROPOXYPHENE] Drug Allergy 03-05-20 Other: See Comments [facility] (20 sources) traMADol; Translations: [TRAMADOL] Drug Allergy 03-05-20 20 Other: See Comments [facility] (20 sources) traMADol; Translations: [TRAMADOL HCL] Drug Allergy 03-12-20 06 Vomiting [facility] (20 sources) Propoxyphene N-Acetaminophen; Translations: [PROPOXYPHENE N-ACETAMINOPHEN] Drug Intolerance 04-28-20 12 Mental Status Change [facility] Work Phone: (15 sources) nitrofurantoin macrocrystalline; Translations: [nitrofurantoin macrocrystalline] Propensity to adverse reactions 11-21-19 22 Other [facility] (1 source) HYDROcodone Drug Allergy 06-29-20 [facility] Repository (1 source) Nitrofurantoin Drug Allergy 06-29-20 [facility] (1 source) Propoxyphene Drug Allergy 06-29-20 [facility] (1 source) traMADol Drug Allergy 06-29-20 [facility] Repository Medications Current Medications Medication Drug Class(es) [...] take 1 tablet by mouth once daily Amlodipine 2.5 mg tablet Active 2.5 mg PO daily December 09, 2024 12:00am HTN Complies with drug therapy Start: 09-29-2024 End: 11-03-2024 take 1 tablet [...] by mouth twice daily for 7 days. atorvastatin 40 mg oral tablet (20 sources) HMG-CoA Reductase Inhibitor Start: 01-17-2017 End: 12-23-2024 take 1 tablet by mouth at bedtime Comment on above: Take 1 tablet by mouth once daily. azithromycin 250 mg oral tablet [...] Comment on above: Take [address] [facility] three times daily as needed for cough. Biotin / Calcium Carbonate (20 sources) biotin/calcium c arbonate (BIOTIN-CALCIUM ORAL) Take by mouth. Active biotin/calcium c arbonate (BIOTIN-CALCIUM ORAL) Take by mouth. 0 Suspended biotin/calcium c arbonate (BIOTIN-CALCIUM ORAL) Take by mouth. 0 Active Comment on above: Take by mouth. 24 hr buPROPion hydrochloride 150 mg extended release oral tablet (20 sources) Aminoketone Start: 06-17-2025 take 1 tablet by mouth once daily Bupropion Hcl 150 mg tablet extended release 24 hr Active 150 mg PO DAILY June 17, 2025 12:00am Complies with drug therapy Start: 04-22-2025 take 1 tablet by [facility] once daily buPROPion XL (WELLBUTRIN XL) 150 mg 24 hr tablet Take 1 tablet by mouth once daily. 30 tablet 1 04/22/2025 Active Start: 09-29-2024 End: 06-17-2025 take 1 tablet by mouth once daily in the morning Bupropion Hcl 100 mg tablet sustained-release 12 hr Discontinued 100 mg PO EVERY MORNING December 09, 2024 12:00am June 17, 2025 5:59pm DEPRESSION cephalexin 500 mg oral capsule (6 sources) [...] on above: Take 1 capsule by mo [facility] twice daily for 7 days. cevimeline 30 mg oral capsule (20 sources) Cholinergic Receptor Agonist Start: 06-11-2025 take 1 capsule by mouth once daily Start: 10-12-2024 End: 11-03-2025 take 1 capsule by mouth three times daily cevimeline (EVOXAC) 30 mg capsule Indications: Dry mouth Take 1 capsule by mouth three times a day. 90 capsule 11 11/03/2024 11/03/2025 Active cholecalciferol 0.05 mg oral capsule (1 source) Vitamin D Start: 06-11-2025 take 1 capsule by mouth once daily clopidogrel 75 mg oral tablet (1 source) P2Y12 Platelet Inhibitor Start: 06-17-2025 take 1 tablet by mouth once daily Clopidogrel (Plavix) 75 mg tablet Active 75 mg PO DAILY 30 0 June 17, 2025 12:00am Complies with drug therapy Collagen (20 sources) COLLAGEN MISC Active cyanocobalamin, [...] by mouth once daily 84 hr estradiol 0.42542 mg/hr transdermal system (20 sources) Estrogen Start: [...] 03-10-2025 Start: 09-08-2024 take 2 spray(s) by m [...] nostril once daily. Rinse mouth after use. 12 hr guaiFENesin 600 mg extended release oral tablet (6 sources) Start: 04-11-20 25 take 1 tablet by mouth twice daily guaiFENesin (MUCINEX) 600 mg 12 hr tablet Take 1 tablet by mouth two times a day. 10 tablet 04/11/2025 Active hydroCHLOROthiazide 12.5 mg / lisinopril 10 mg oral tablet (20 sources) Thiazide Diuretic, Angiotensin Converting Enzyme Inhibitor Start: 12-10-19 25 Lisinopril-Hydroch lorothiazide 10-12.5 mg tablet Active 1 {tbl} PO daily December 09, 2024 12:00am HTN Complies with drug therapy Start: 07-25-2022 End: 03-31-2024 take 10-12.5 mg [...] Active Comment on above: Take by mouth. Lacto No.98-Kmdjsg-Dkx-Larch 25B cell-25B cell-50 mg capsule (1 source) Start: 06-11-2025 take 1 capsule by mo [facility] once daily Magnesium (20 sources) Start: 12-09-2024 take 1 tablet by por[facility]io once daily Start: 12-09-2024 take 1 tablet by por[facility]io once daily Magnesium 200 mg tablet Active 200 mg PO daily December 09, 2024 12:00am Complies with drug therapy Start: 12-09-2024 take 1 tablet by [facility] once daily Start: 12-09-2024 take 1 tablet by porfirio once daily Magnesium 200 mg tablet Active 200 mg PO daily December 09, 2024 12:00am MAGNESIUM ORAL T sh[place] by mouth once daily. Active meloxicam 15 mg oral tablet (20 sources) Nonsteroidal Anti-inflammatory Drug Start: 11-20-2021 Start: 06-19-2021 End: 12-29-2024 take 1 tablet by mouth once daily Meloxicam 15 mg tablet Active 15 mg PO DAILY November 20, 2021 12:00am PAIN Complies with drug therapy Comment on above: Take 1 tablet by [...] 14 days. 60 g 04/22/2025 05/06/2025 Active omeprazole 20 mg delayed release oral capsule (20 sources) Proton Pump Inhibitor Start: 11-21-19 Start: 07-31-2021 End: 06-29-2024 take 1 capsule by mouth once daily Omeprazole 20 mg capsule,delayed release(DR/EC) Active 20 mg PO DAILY November 20, 2021 12:00am GERD Complies with drug therapy Comment on above: Take 1 capsule by mo [facility] once daily. prednisoLONE acetate 10 mg/m l ophthalmic suspension (20 sources) Corticosteroid Start: 06-17-2025 Start: 04-02-2025 prednisoLONE a cetate (PRED FORTE) 1 % [...] tab daily for 3 days with food. progesterone 100 mg oral capsule (20 sources) Progesterone Start: 09-15-19 End: 09-15-19 take 1 capsule by mouth at bedtime proparacaine hydrochloride 5 mg/ml ophthalmic solution (4 sources) Local Anesthetic Start: 03-23-20 End: 03-24-20 proparacaine 0.5 % 1 drop (ALCAINE) Start: [...] L Take by mouth once daily. Active Timolol Maleate (18 sources) beta-Adrenergic Agustin Start: 06-17-2025 Start: 03-23-2025 End: 03-25-2025 timolol maleate (TIMOPTIC) 0 .5 % ophthalmic solution Use 1 drop in [...] 07, 2015 12:00am November 06, 2023 3:47pm traZODone hydrochloride 100 mg oral tablet (20 sources) Serotonin Reuptake Inhibitor Start: 03-31-2025 End: 09-27-2025 take 1 tablet by mouth at bedtime Trazodone 100 mg tablet Active 100 mg PO AT BEDTIME June 17, 2025 12:00am Complies with drug therapy Start: 09-29-2024 End: 03-28-2025 take 1 tablet by mouth once daily at bedtime traZODone (DESYREL) 100 mg tablet Indications: Insomnia, unspecified type Take 1 tablet by mouth daily at bedtime. 30 tablet 5 09/29/2024 10/12/2024 Discontinued Start: 10-20-2018 End: 06-17-2025 take 1 tablet by mouth at bedtime as needed Trazodone 50 mg tablet Discontinued 50 mg PO AT BEDTIME as needed for insomnia October 20, 2018 1:00am June 17, 2025 5:58pm Comment on above: Take 1 tablet by porfirio th daily at bedtime. triamcinolone acetonide 0.25 mg/ml topical cream (10 sources) Corticosteroid Start: 06-17-2025 Start: 04-22-2025 triamcinolone (KENALOG) 0.025 % cream [...] tablet by mouth at bedtime as needed for sleep Completed/Discontinued Medications Medication Drug Class(es) Dates Sig (Normalized) Sig (Original) acetaminophen 300 mg / codeine phosphate 30 mg oral tablet (14 sources) Opioid Agonist Start: 10-19-2017 End: 10-29-2017 [...] 12:00am December 09, 2024 1:35pm Start: 11-14-2015 Aspirin (Adult Low Dose Aspirin) 81 mg tablet,delayed release (DR/EC) Active 81 mg PO daily December 09, 2024 12:00am [facility] Complies with drug therapy Comment on above: Take 1 tablet by porfirio once daily. bacitracin 0.5 unt/mg / polymyxin [...] (obstructive sleep apnea) APAP 5-18 cmH2O DME [facility] 1 each 12/17/2024 03/24/2025 Discontinued Start: 12-17-2024 End: 05-03-2052 CPAP/BIPAP/OTHER Indications : DAYSI (obstructive sleep apnea) APAP 5-18 cmH2O DME [facility] 1 each 12/17/2024 05/03/2052 Active cyclopentolate hydrochloride [...] extended release oral tablet (20 sources) Uncompetitive E-bdchmw-N-[place]part[place] te Receptor Antagonist, Sigma-1 Agonist Start: 08-30-2023 [...] 14 capsule 04/11/2024 12/29/2024 Discontinued Estrogens, Conjugated (CUSTODIAL) / medroxyPROGESTERone (20 sources) Progestin, Estrogen Start: [...] / norethindrone acetate 1 mg oral tablet (14 sources) Estrogen Start: 10-19-2017 End: 12-09-2024 Norethindrone Ac-Eth Estradiol 1 EACH tablet Discontinued 1 NMA PO DAILY October 19, 2017 1:00am December 09, 2024 1:38pm Start: 10-19-2017 Norethindrone Ac-Eth Estradiol Active 1 EACH PO DAILY October 19, 2017 1:00am folic acid 0.4 mg / vitamin b12 0.5 mg oral tablet (11 sources) Vitamin B12 Start: 12-09-2024 End: 06-11-2025 Vitamin Q98-Gikxc Acid 500-400 mcg tablet Discontinued 1 {tbl} PO daily December 09, 2024 12:00am June 11, 2025 1:32pm administer with a meal gabapentin 100 mg oral capsule (20 sources) Anti-epileptic Agent Start: 05-11-2022 End: 06-28-2025 take 1 capsule by mouth at bedtime Gabapentin 100 mg capsule Discontinued 100 mg PO AT BEDTIME March 10, 2025 12:00am June 11, 2025 1:27pm Start: 09-18-2021 End: 03-18-2022 take 1 capsule by mouth once daily at bedtime gabapentin (NEURONTIN) 100 mg capsule Take 1 capsule by mouth daily at bedtime for 181 days. 60 capsule 2 09/18/2021 12/04/2021 Discontinued Comment on above: Take 1 capsule by mo [facility] daily at bedtime for 181 days. ibuprofen 800 mg oral tablet (20 sources) Nonsteroidal Anti-inflammatory Drug Start: 08-30-20 End: 03-24-20 take 1 tablet by mouth every eight [...] sources) Nonsteroidal Anti-inflammatory Drug, Cyclooxygenase Inhibitor Start: 02-20-20 End: 10-07-19 take 1 drop(s) into the eye(s) four [...] tablet (20 sources) Start: 09-09-19 End: 10-07-19 take 1 tablet by mouth once daily loratadine (CLARITIN) 10 mg tablet Indications: Nasal congestion Take 1 tablet by mouth once daily. 30 tablet 09/09/2023 10/07/2024 Discontinued (Course of therapy completed) Comment on above: Take 1 tablet by [facility] once daily. meclizine hydrochloride 25 mg oral tablet (14 sources) Antiemetic Start: 11-21-19 End: 11-06-19 take [...] day for 7 (seven) days, then STOP Oo-5-Nvq-Epa-Fish Oil-Vit D3 720 mg- 25 mcg capsule (11 sources) Start: 12-09-2024 End: 06-11-2025 Ty-8-Xak-Epa-Fish Oil-Vit D3 720 mg- 25 mcg capsule Discontinued NMA PO December 09, 2024 12:00am June 11, 2025 1:31pm Start: 12-09-2024 Pe-5-Cog-Epa-F elvia Oil-Vit D3 720 mg- 25 mcg capsule Active NMA PO December 09, 2024 12:00am Complies with drug therapy Start: 12-09-2024 Start: 12-09-2024 Dq-8-Wyv-Epa-F elvia Oil-Vit D3 720 mg- 25 mcg capsule Active NMA PO December 09, 2024 12:00am oxymetazoline hydrochloride 1 mg/ml ophthalmic solution (12 sources) Start: 02-06-2022 End: 05-07-2022 oxymetazoline, PF, (UPNEEQ, PF,) 0.1 % dpet Use 1 Drop in eyes once daily. 90 Each 1 02/06/2022 05/07/2022 Comment on above: Use 1 Drop in eyes o nce daily. phenylephrine hydrochloride 25 mg/ml ophthalmic solution (1 source) alpha-1 Adrenergic Agonist Start: 08-20-2023 End: 08-21-2023 PHENYLephrine 2.5 % 1 Drop (AK-DILATE, BENEDICT-SYNEPHRINE) polymyxin b [id number] unt/ml / trimethoprim 1 mg/ml ophthalmic solution (19 sources) Dihydrofolate Reductase Inhibitor Antibacterial, Polymyxin-class Antibacterial Start: 10-10-2022 End: 11-12-2022 take 1 drop(s) into the eye(s) four times daily trimethoprim-polymyx in (POLYTRIM) 10,000 unit- 1 mg/mL ophthalmic solution [...] extended release oral tablet (20 sources) Start: 11-20-2024 End: 12-29-2025 take 1 tablet by mouth once daily Potassium Chloride 10 mEq tablet extended release Discontinued 10 meq PO daily December 09, 2024 12:00am March 10, 2025 2:39pm [place] (3 sources) Start: 06-04-2025 End: 06-11-2025 take 1 capsule by mouth twice daily [place] 450 mg capsule Discontinued 450 mg PO TWICE A DAY June 04, 2025 12:00am June 11, 2025 1:32pm Start: 06-04-2025 take 1 capsule by mouth twice daily tropicamide 10 mg/ml ophthalmic solution (3 sources) [...] [Anxiety disorder, unspecified] Onset: 12-29-2024 10-12-2024 Chronic Aortic; peripheral; and visceral artery aneurysms (1 source) Dissection of vertebral artery; 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)] Onset: 06-30-2025 Chronic Blindness and vision defects (20 sources) [...] 04-15-2017 Episodic Diseases of mouth; excluding dental (5 sources) Xerostomia; Translations: [Dry mouth, unspecified] Onset: 07-06-2025 10-07-2024 Episodic Disorders of lipid metabolism (20 [...] persistent headache (NDPH)] Chronic Headache; including migraine (8 sources) Chronic mixed headache syndrome; Translations: [Other headache syndrome] Episodic Headache; including migraine (2 sources) Headache; including migraine; Translations: [Acute nonintractable headache, unspecified headache type] Onset: 07-05-2025 Inflammation; infection of eye (except that caused by tuberculosis or sexually transmitteddisease) (14 sources) Blepharitis; Translations: [Unspecified blepharitis right eye, unspecified eyelid] 03-20-2021 Episodic Intracranial injury (7 sources) Concussion with no loss of consciousness; Translations: [Concussion without loss of consciousness, initial encounter] Onset: 06-01-2025 05-27-2025 Episodic Malaise and fatigue (6 sources) Fatigue; Translations: [Other fatigue] Onset: 11-03-2024 11-03-2024 Episodic Menopausal disorders (1 source) Menopausal syndrome; [...] Onset: 06-04-2025 03-10-2025 Chronic Other acquired deformities (18 sources) Degenerative disorder of musculoskeletal system; Translations: [Other secondary scoliosis, site unspecified] 04-16-2025 Chronic Other acquired deformities (1 source) Other secondary scoliosis, site unspecified; Translations: [Other secondary scoliosis, site unspecified] Onset: 06-04-2025 Chronic Other acquired deformities (18 sources) Spondylolisthesis; Translations: [Spondylolisthesis, site unspecified] 04-16-2025 [...] Episodic Other aftercare (1 source) Encounter for therapeutic drug level monitoring; Translations: [Encounter for monitoring antiplatelet therapy] Onset: 06-30-2025 Episodic Other aftercare (1 source) prison (current) use of 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/antip latelets; Translations: [Encounter for monitoring antiplatelet therapy] Onset: 06-30-2025 Episodic 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 sources) Pseudoxanthoma elasticum; Translations: [Other specified congenital malformations of skin] Onset: 11-11-2014 08-28-2021 Chronic Other congenital anomalies (2 sources) Other specified congenital malformations of skin; 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] Onset: 07-01-2025 Chronic Other connective tissue disease (3 sources) [...] Onset: 11-07-2022 Episodic Other connective tissue disease (14 sources) Inflammation of rotator cuff tendon; Translations: [...] 04-30-2023 Episodic Other inflammatory condition of skin (14 sources) Pruritic rash; Translations: [Other pruritus] 03-20-2021 Episodic Other inflammatory condition of skin (2 sources) Intertrigo; Translations: [Erythema intertrigo] 04-22-2025 Episodic Other inflammatory condition of skin (1 source) Erythema intertrigo; Translations: [Intertrigo] Onset: 04-22-2025 Episodic Other injuries and conditions due to external causes (13 sources) Injury of right rotator cuff; Translations: [...] skin] 04-25-2023 Episodic Other non-traumatic joint disorders (13 sources) Pain in right shoulder; Translations: [Right shoulder pain] 11-06-2023 Episodic Other nutritional; endocrine; and metabolic disorders (20 sources) Obese class I; Translations: [Obesity, unspecified] Onset: 06-20-2022 06-20-2022 Chronic Other screening for suspected conditions (not mental disorders or infectious disease) (19 sources) Patient encounter status; Translations: [Encounter for screening mammogram for malignant neoplasm of breast] Onset: 10-21-2024 Episodic Other upper respiratory infections (1 source) Bacterial [...] movement disorder] 10-08-2024 Chronic Residual codes; unclassified (11 sources) Sleep apnea; Translations: [Sleep apnea, unspecified] [...] Flushing; Translations: [Flushing] Episodic Residual codes; unclassified (5 sources) Insomnia; Translations: [Insomnia, unspecified] 09-29-2024 Episodic Retinal detachments; defects; vascular occlusion; and retinopathy (20 sources) Degenerative disorder of macula ; Translations: [Unspecified macular degeneration] Onset: 11-11-2014 08-28-2021 Chronic Spondylosis; intervertebral disc disorders; other back problems (18 sources) Lumbar spondylosis; Translations: [Spondylosis without myelopathy or radiculopathy, lumbar region] 03-10-2025 Chronic Spondylosis; intervertebral disc disorders; other back problems (20 sources) Lumbar radiculopathy; Translations: [Radiculopathy, lumbar region] [...] site not specified] 10-31-2024 Episodic Viral infection (14 sources) Disease caused by 2019-nCoV; Translations: [COVID-19] [...] 03-23-2025 03-23-2025 Episodic Fluid and electrolyte disorders (4 sources) Hypokalemia; Translations: [Hypokalemia] Onset: 12-29-2024 11-20-2024 Episodic Immunizations and screening for infectious disease (5 sources) Viral screening status; Translations: [Encounter for screening for other viral diseases] Onset: 03-02-2025 03-31-2024 Episodic Nausea and vomiting (20 sources) Nausea; Translations: [Nausea] Onset: 01-29-2018 01-29-2018 Episodic Nutritional deficiencies (4 sources) Cobalamin deficiency; Translations: [Deficiency of other specified B group vitamins] Onset: 11-03-2024 11-03-2024 Episodic Other aftercare (1 source) Encounter for follow-up examination after completed treatment for conditions other than malignant neoplasm; Translations: [Follow-up examination after eye surgery] Onset: 04-02-2025 Episodic Other connective tissue disease (20 sources) [...] [Pain in left hip] Onset: 03-10-2025 Episodic Results Test Name Value Interpretation Reference Range Facility CNPNon 07-07-2025 CNPN Normal [facility] CNOVon 07-06-2025 CNOV Normal [facility] CNPTOUTREACHon 07-06-2025 CNPTOUTREACH Normal [facility] ALLIED HEALTHon 07-05-2025 ALLIED HEALTH Normal [facility] CBC W Auto Differential pane l (Bld)on 07-05-2025 Basophils (Bld) [#/Vol] 10*3/uL Normal <0.11 C [facility] Comment on above: Order Comment: Speci men Type: BLOOD SPECIMENOrdering Facility: [facility] Address: [address] [place] [address] Performed By: #### 5 7021-8 ####[facility] LABCLIA [id number] [place] [address] [place] Basophils/100 WBC (Bld) 0.1 % Normal C [facility] Comment on above: Order Comment: Speci men Type: BLOOD SPECIMENOrdering Facility: [facility] Address: [address] [place] [address] Performed By: #### 5 7021-8 ####[facility] LABCLIA [id number] [place] [address] [place] Differential cell count method Nom (Bld) Auto Normal [facility] Comment on above: Order Comment: Speci men Type: BLOOD SPECIMENOrdering Facility: [facility] Address: [address] [place] [address] Performed By: #### 5 7021-8 ####[facility] LABCLIA [id number] [place] [address] [place] Eosinophils (Bld) [#/Vol] 10*3/uL Normal <0.46 [facility] Comment on above: Order Comment: Speci men Type: BLOOD SPECIMENOrdering Facility: [facility] Address: [address] [place] [address] Performed By: #### 5 7021-8 ####[facility] LABCLIA [id number] [place] [address] [place] Eosinophils/100 WBC (Bld) 0.0 % Normal [facility] Comment on above: Order Comment: Speci men Type: BLOOD SPECIMENOrdering Facility: [facility] Address: [address] [place] [address] Performed By: #### 5 7021-8 ####[facility] LABCLIA [id number] [place] [address] [place] Erythrocyte distribution width (RBC) [Ratio] 13.2 % Normal 11.5-15.0 [facility] Comment on above: Order Comment: Speci men Type: BLOOD SPECIMENOrdering Facility: [facility] Address: [address] [place] [address] Performed By: #### 5 7021-8 ####[facility] LABCLIA [id number] [place] [address] [place] Hematocrit (Bld) [Volume fraction] 37.7 % Normal 36.0-46.0 [facility] Comment on above: Order Comment: Speci men Type: BLOOD SPECIMENOrdering Facility: [facility] Address: [address] [place] [address] Performed By: #### 5 7021-8 ####[facility] LABCLIA [id number] [place] [address] [place] Hemoglobin (Bld) [Mass/Vol] 12.7 g/dL Normal 11.5-15.5 [facility] Comment on above: Order Comment: Speci men Type: BLOOD SPECIMENOrdering Facility: [facility] Address: [address] [place] [address] Performed By: #### 5 7021-8 ####[facility] LABCLIA [id number] [place] [address] [place] Immature granulocytes (Bld) [#/Vol] 0.03 10*3/uL Normal <0.10 [facility] Comment on above: Order Comment: Speci men Type: BLOOD SPECIMENOrdering Facility: [facility] Address: [address] [place] [address] Performed By: #### 5 7021-8 ####[facility] LABCLIA [id number] [address] [place] Immature granulocytes/100 WBC (Bld) 0.4 % Normal [facility] Comment on above: Order Comment: Speci men Type: BLOOD SPECIMENOrdering Facility: [facility] Address: [address] [place] [address] Performed By: #### 5 7021-8 ####[facility] LABCLIA [id number] [place] [address] [place] Lymphocytes (Bld) [#/Vol] 0.48 10*3/uL Low 1.00-4.00 [facility] Comment on above: Order Comment: Speci men Type: BLOOD SPECIMENOrdering Facility: [facility] Address: [address] [place] [address] Performed By: #### 5 7021-8 ####[facility] LABCLIA [id number] [address] [place] [facility] Lymphocytes/100 WBC (Bld) 5.6 % Normal [facility] Comment on above: Order Comment: Speci men Type: BLOOD SPECIMENOrdering Facility: [facility] Address: [address] [place] [address] Performed By: #### 5 7021-8 ####[facility] LABCLIA [id number] [place] [address] [place] MCH (RBC) [Entitic mass] 30.1 pg Normal 26.0-34.0 [facility] Comment on above: Order Comment: Speci men Type: BLOOD SPECIMENOrdering Facility: [facility] Address: [address] [place] [address] Performed By: #### 5 7021-8 ####[facility] LABCLIA [id number] [place] [address] [place] MCHC (RBC) [Mass/Vol] 33.7 g/dL Normal 30.5-36.0 [facility] Comment on above: Order Comment: Speci men Type: BLOOD SPECIMENOrdering Facility: [facility] Address: [address] [place] [address] Performed By: #### 5 7021-8 ####[facility] LABCLIA [id number] [place] [address] [place] MCV (RBC) [Entitic vol] 89.3 fL Normal 80.0-100.0 [facility] Comment on above: Order Comment: Speci men Type: BLOOD SPECIMENOrdering Facility: [facility] Address: [address] [place] [address] Performed By: #### 5 7021-8 ####[facility] LABCLIA [id number] [place] [address] [place] Monocytes (Bld) [#/Vol] 0.14 10*3/uL Normal <0.87 [facility] Comment on above: Order Comment: Speci men Type: BLOOD SPECIMENOrdering Facility: [facility] Address: [address] [place] [address] Performed By: #### 5 7021-8 ####[facility] LABCLIA [id number] [place] [address] [place] Monocytes/100 WBC (Bld) 1.6 % Normal [facility] Comment on above: Order Comment: Speci men Type: BLOOD SPECIMENOrdering Facility: [facility] Address: [address] [place] [address] Performed By: #### 5 7021-8 ####[facility] LABCLIA [id number] [place] [address] [place] Neutrophils (Bld) [#/Vol] 7.85 10*3/uL High 1.45-7.50 [facility] Comment on above: Order Comment: Speci men Type: BLOOD SPECIMENOrdering Facility: [facility] Address: [address] [place] [address] Performed By: #### 5 7021-8 ####[facility] LABCLIA [id number] [place] [address] [place] Neutrophils/100 WBC (Bld) 92.3 % Normal [facility] Comment on above: Order Comment: Speci men Type: BLOOD SPECIMENOrdering Facility: [facility] Address: [address] [place] [address] Performed By: #### 5 7021-8 ####[facility] LABCLIA [id number] [place] [address] [place] Nucleated RBC (Bld) [#/Vol] 10*3/uL Normal <0.01 [facility] Comment on above: Order Comment: Speci men Type: BLOOD SPECIMENOrdering Facility: [facility] Address: [address] [place] [address] Performed By: #### 5 7021-8 ####[facility] LABCLIA [id number] [place] [address] [place] Nucleated RBC/100 WBC (Bld) [Ratio] 0.0 /100 WBC Normal [facility] Comment on above: Order Comment: Speci men Type: BLOOD SPECIMENOrdering Facility: [facility] Address: [address] [place] [address] Performed By: #### 5 7021-8 ####[facility] LABCLIA [id number] [place] [address] [place] Platelet mean volume (Bld) [Entitic vol] 10.4 fL Normal 9.0-12.7 [facility] Comment on above: Order Comment: Speci men Type: BLOOD SPECIMENOrdering Facility: [facility] Address: [address] [place] [address] Performed By: #### 5 7021-8 ####[facility] LABCLIA [id number] [place] [address] [place] Platelets (Bld) [#/Vol] 314 10*3/uL Normal 150-400 [facility] Comment on above: Order Comment: Speci men Type: BLOOD SPECIMENOrdering Facility: [facility] Address: [address] [place] [address] Performed By: #### 5 7021-8 ####[facility] LABCLIA [id number] [place] [address] [place] RBC (Bld) [#/Vol] 4.22 10*6/uL Normal 3.90-5.20 [facility] Comment on above: Order Comment: Speci men Type: BLOOD SPECIMENOrdering Facility: [facility] Address: [address] [place] [address] Performed By: #### 5 7021-8 ####[facility] LABCLIA [id number] [place] [address] [place] WBC (Bld) [#/Vol] 8.51 10*3/uL Normal 3.70-11.00 [facility] Comment on above: Order Comment: Speci men Type: BLOOD SPECIMENOrdering Facility: [facility] Address: [address] [place] [address] Performed By: #### 5 7021-8 ####[facility] LABCLIA [id number] [place] [address] [place] CONSULTon 07-05-2025 CONSULT Normal [facility] CT BRAIN WO IVCONon 07-05-[address] BRAIN WO IVCON Normal [facility] Comprehensive metabolic 2000 panelon 07-05-2025 Albumin [Mass/Vol] 4.5 g/dL Normal 3.9-4.9 [facility] Comment on above: Order Comment: Speci men Type: BLOOD SPECIMENOrdering Facility: [facility] Address: [address] [place] [address] Performed By: #### 2 4323-8, [id number] ####[facility] LABCLIA [id number] [place] [address] [place] ALP [Catalytic activity/Vol] 116 U/L Normal 34-123 [facility] Comment on above: Order Comment: Speci men Type: BLOOD SPECIMENOrdering Facility: [facility] Address: [address] [place] [address] Performed By: #### 2 4323-8, [id number] ####[facility] LABCLIA [id number] [place] [address] [place] ALT [Catalytic activity/Vol] 18 U/L Normal 7-38 [facility] Comment on above: Order Comment: Speci men Type: BLOOD SPECIMENOrdering Facility: [facility] Address: [address] [place] [address] Performed By: #### 2 4323-8, [id number] ####[facility] LABCLIA [id number] [place] [address] [place] Anion gap [Moles/Vol] 13 mmol/L Normal 8-15 [facility] Comment on above: Order Comment: Speci men Type: BLOOD SPECIMENOrdering Facility: [facility] Address: [address] [place] [address] Performed By: #### 2 4323-8, [id number] ####[facility] LABCLIA [id number] [place] [address] [place] AST [Catalytic activity/Vol] 18 U/L Normal 13-35 [facility] Comment on above: Order Comment: Speci men Type: BLOOD SPECIMENOrdering Facility: [facility] Address: [address] [place] [address] Performed By: #### 2 4323-8, [id number] ####[facility] LABCLIA [id number] [place] [address] [place] Bilirubin [Mass/Vol] 0.2 mg/dL Normal 0.2-1.3 [facility] Comment on above: Order Comment: Speci men Type: BLOOD SPECIMENOrdering Facility: [facility] Address: [address] [place] [address] Performed By: #### 2 4323-8, [id number] ####[facility] LABCLIA [id number] [place] [address] [place] Calcium [Mass/Vol] 9.7 mg/dL Normal 8.5-10.2 [facility] Comment on above: Order Comment: Speci men Type: BLOOD SPECIMENOrdering Facility: [facility] Address: [address] [place] [address] Performed By: #### 2 4323-8, [id number] ####[facility] LABCLIA [id number] [place] [address] [place] Chloride [Moles/Vol] 101 mmol/L Normal 98-107 [facility] Comment on above: Order Comment: Speci men Type: BLOOD SPECIMENOrdering Facility: [facility] Address: [address] [place] [address] Performed By: #### 2 4323-8, [id number] ####[facility] LABCLIA [id number] [place] [address] [place] CO2 [Moles/Vol] 26 mmol/L Normal 22-30 [facility] Comment on above: Order Comment: Speci men Type: BLOOD SPECIMENOrdering Facility: [facility] Address: [address] [place] [address] Performed By: #### 2 4323-8, [id number] ####[facility] LABCLIA [id number] [place] [address] [place] Creatinine [Mass/Vol] 1.01 mg/dL High 0.58-0.96 [facility] Comment on above: Order Comment: Speci men Type: BLOOD SPECIMENOrdering Facility: [facility] Address: [address] [place], [place] [address] Performed By: #### 2 4323-8, [id number] ####[facility] LABCLIA [id number] [place] [id number] [place] eGFRcr SerPlBld CKD-EPI 2020 65 mL/min/1.73m??? Normal >=60 [facility] Comment on above: Order Comment: Brandan eaton Type: BLOOD SPECIMENOrdering Facility: [facility] Address: [address] [place] [address] Result Comment: Zaria mated Glomerular Filtration Rate [...] reflect actual GFR. Performed By: #### 2 4323-8, [id number] ####[facility] LABCLIA [id number] [place] [address] [place] Glucose [Mass/Vol] 116 mg/dL High 74-99 [facility] Comment on above: Order Comment: Brandan eaton Type: BLOOD SPECIMENOrdering Facility: [facility] Address: [address] [place] [address] Result Comment: The [employer] (ADA) provides guidance for cutoff values for fasting glucose and random glucose. The ADA defines fasting as no caloric intake for at least 8 hours. Fasting plasma glucose results between 100 to 125 mg/dL indicate increased risk for diabetes (prediabetes).Fasting plasma glucose results greater than or equal to 126 mg/dL meet the criteria for diagnosis of diabetes. In the absence of unequivocal hyperglycemia, results should be confirmed by repeat testing. In a patient with classic symptoms of hyperglycemia or hyperglycemic crisis, random plasma glucose results greater than or equal to 200 mg/dL meet the criteria for diagnosis of diabetes.Reference: Standards of Medical Care in Diabetes 2016, [employer]. Diabetes Care. 2016.39(Suppl 1). Performed By: #### 2 4323-8, [id number] ####[facility] LABCLIA [id number] [place] [address] [place] Potassium [Moles/Vol] 4.1 mmol/L Normal 3.7-5.1 [facility] Comment on above: Order Comment: Brandan eaton Type: BLOOD SPECIMENOrdering Facility: [facility] Address: [address] [place] [address] Performed By: #### 2 4323-8, [id number] ####[facility] LABCLIA [id number] [place] [address] [place] Protein [Mass/Vol] 7.4 g/dL Normal 6.3-8.0 [facility] Comment on above: Order Comment: Speci men Type: BLOOD SPECIMENOrdering Facility: [facility] Address: [address] [place] [address] Performed By: #### 2 4323-8, [id number] ####[facility] LABCLIA [id number] [place] [address] [place] Sodium [Moles/Vol] 140 mmol/L Normal 136-144 [facility] Comment on above: Order Comment: Speci men Type: BLOOD SPECIMENOrdering Facility: [facility] Address: [address] [place] [address] Performed By: #### 2 4323-8, [id number] ####[facility] LABCLIA [id number] [place] [address] [place] Urea nitrogen [Mass/Vol] 15 mg/dL Normal 7-21 [facility] Comment on above: Order Comment: Speci men Type: BLOOD SPECIMENOrdering Facility: [facility] Address: [address] [place] [address] Performed By: #### 2 4323-8, [id number] ####[facility] LABCLIA [id number] [place] [id number] [place] ED PROV NOTEon 07-05-2025 ED PROV NOTE Normal [facility] ED Triage Noteon 07-05-2025 ED Triage Note Normal [facility] HIGH SENSITIVITY TROPONIN T (INITIAL)on 07-05-2025 Troponin T.cardiac High sensitivity method [Mass/Vol] <6 Normal <12 [facility] Comment on above: Order Comment: Speci men Type: BLOOD SPECIMENOrdering Facility: [facility] Address: [address] [place] [address] Performed By: #### 2 4323-8, [id number] ####[facility] LABCLIA [id number] [address] [place] HIGH SENSITIVITY TROPONIN T (SECOND)on 07-05-2025 Troponin T.cardiac High sensitivity method [Mass/Vol] <6 Normal <12 [facility] Comment on above: Order Comment: Speci men Type: BLOOD SPECIMENOrdering Facility: [facility] Address: [address] [place] [address] Performed By: #### L [id number] ####[facility] LABCLIA [id number] [place] [address] [place] PT panel Coag (PPP)on 2024 INR Coag (PPP) [Relative time] {INR} Low 0.9-1.3 [facility] Comment on above: Order Comment: Speci men Type: BLOOD SPECIMENOrdering Facility: [facility] Address: [address] [place] [address] Result Comment: Kelly min K Antagonist (VKA) Therapeutic Range: INR 2 to 3 (Target INR of 2.5)Note: For patients treated with VKA drugs, such as warfarin, the [employer] 2012 Guideline recommends a therapeutic INR range of 2 to 3 (target INR of 2.5). This recommendation includes high-risk patients with antiphospholipid syndrome with previous arterial or venous thromboembolism, current-generation mechanical or bioprosthetic aortic heart valve replacement.Note: Patients with mechanical aortic valve replacement and additional risk factors for thromboembolic events (atrial fibrillation, previous thromboembolism, LV dysfunction, hypercoagulable conditions) or an older generation mechanical AVR (i.e., ball in-Cage) or any mechanical MVR should have a INR therapeutic range of 2.5 to 3.5 (target INR of 3).Tabitha GH, et al. Chest 2012, 141:7S-47SNishimura RA, et al. [facility] 2017, 70: 252-289 Performed By: #### 3 4528-0, 90454-1 ####[facility] LABCLIA [id number] [address] [place] PT Coag (PPP) [Time] 9.9 s Normal 9.7-13.0 [facility] Comment on above: Order Comment: Speci men Type: BLOOD SPECIMENOrdering Facility: [facility] Address: [address] [place] [address] Performed By: #### 3 4528-0, 83755-2 ####[facility] LABCLIA [id number] [place] [address] [place] SEPSIS LACTATE W/ REFLEX (IN ITIAL)on 07-05-2025 Lactate [Moles/Vol] 1.9 mmol/L Normal <=2.0 [facility] Comment on above: Order Comment: Speci men Type: BLOOD SPECIMENOrdering Facility: [facility] Address: [address] [place] [address] Performed By: #### S LACTR ####[facility] LABCLIA [id number] [place] [address] [place] XR CHEST 1V FRONTAL PORTon 1 09-04-2024 XR CHEST 1V FRONTAL PORT Normal [facility] aPTT PPPon 07-05-2025 aPTT Coag (PPP) [Time] 22.4 s Low 23.0-32.4 [facility] Comment on above: Order Comment: Speci men Type: BLOOD SPECIMENOrdering Facility: [facility] Address: [address] [place] [address] Result Comment: Samp le checked for clot. Performed By: #### 3 4528-0, 09427-6 ####[facility] LABCLIA [id number] [place] [address] [place] CNPTOUTREACHon 07-02-2025 CNPTOUTREACH Normal [facility] CBC panel Auto (Bld)on 07-01 Erythrocyte distribution width (RBC) [Ratio] 13.1 % Normal 11.5-15.0 [facility] Comment on above: Order Comment: Speci men Type: BLOOD SPECIMENOrdering Facility: [facility] Address: [address] [place] [address] Performed By: #### 5 8410-2 ####[facility] LABCLIA [id number] [place] [address] [place] Hematocrit (Bld) [Volume fraction] 30.2 % Low 36.0-46.0 [facility] Comment on above: Order Comment: Speci men Type: BLOOD SPECIMENOrdering Facility: [facility] Address: [address] [place] [address] Performed By: #### 5 8410-2 ####[facility] LABCLIA [id number] [place] [address] [place] Hemoglobin (Bld) [Mass/Vol] 9.9 g/dL Low 11.5-15.5 [facility] Comment on above: Order Comment: Speci men Type: BLOOD SPECIMENOrdering Facility: [facility] Address: [address] [place] [address] Performed By: #### 5 8410-2 ####[facility] LABIA [id number] [place] [address] [place] MCH (RBC) [Entitic mass] 29.5 pg Normal 26.0-34.0 [facility] Comment on above: Order Comment: Speci men Type: BLOOD SPECIMENOrdering Facility: [facility] Address: [address] [place] [address] Performed By: #### 5 8410-2 ####[facility] LABIA [id number] [place] [address] [place] MCHC (RBC) [Mass/Vol] 32.8 g/dL Normal 30.5-36.0 [facility] Comment on above: Order Comment: Speci men Type: BLOOD SPECIMENOrdering Facility: [facility] Address: [address] [place] [address] Performed By: #### 5 8410-2 ####[facility] LABCLIA [id number] [place] [address] [place] MCV (RBC) [Entitic vol] 89.9 fL Normal 80.0-100.0 [facility] Comment on above: Order Comment: Speci men Type: BLOOD SPECIMENOrdering Facility: [facility] Address: [address] [place] [address] Performed By: #### 5 8410-2 ####[facility] LABCLIA [id number] [place] [address] [place] Nucleated RBC (Bld) [#/Vol] 10*3/uL Normal <0.01 [facility] Comment on above: Order Comment: Speci men Type: BLOOD SPECIMENOrdering Facility: [facility] Address: [address] [place] [address] Performed By: #### 5 8410-2 ####[facility] LABIA [id number] [place] [address] [place] Platelet mean volume (Bld) [Entitic vol] 10.6 fL Normal 9.0-12.7 [facility] Comment on above: Order Comment: Speci men Type: BLOOD SPECIMENOrdering Facility: [facility] Address: [address] [place] [address] Performed By: #### 5 8410-2 ####[facility] LABIA [id number] [place] [address] [place] Platelets (Bld) [#/Vol] 205 10*3/uL Normal 150-400 [facility] Comment on above: Order Comment: Speci men Type: BLOOD SPECIMENOrdering Facility: [facility] Address: [address] [place] [address] Performed By: #### 5 8410-2 ####[facility] LABCLIA [id number] [place] [address] [place] RBC (Bld) [#/Vol] 3.36 10*6/uL Low 3.90-5.20 [facility] Comment on above: Order Comment: Speci men Type: BLOOD SPECIMENOrdering Facility: [facility] Address: [address] [place] [address] Performed By: #### 5 8410-2 ####[facility] LABCLIA [id number] [place] [address] [place] WBC (Bld) [#/Vol] 4.95 10*3/uL Normal 3.70-11.00 [facility] Comment on above: Order Comment: Speci men Type: BLOOD SPECIMENOrdering Facility: [facility] Address: [address] [place] [address] Performed By: #### 5 8410-2 ####[facility] LABCLIA [id number] [place] [id number] [place] CNDSon 07-01-2025 CNDS Normal [facility] Comprehensive metabolic 2000 panelon 07-01-2025 Albumin [Mass/Vol] 3.5 g/dL Low 3.9-4.9 [facility] Comment on above: Order Comment: Speci men Type: BLOOD SPECIMENOrdering Facility: [facility] Address: [address] [place] [address] Performed By: #### 1 9123-9, 27703-02, 49626-3 ####[facility] LABCLIA [id number] [place] [address] [place] ALP [Catalytic activity/Vol] 98 U/L Normal 34-123 [facility] Comment on above: Order Comment: Speci men Type: BLOOD SPECIMENOrdering Facility: [facility] Address: [address] [place] [address] Performed By: #### 1 9123-9, 27703-02, 44022-8 ####[facility] LABCLIA [id number] [place] [address] [place] ALT [Catalytic activity/Vol] 12 U/L Normal 7-38 [facility] Comment on above: Order Comment: Speci men Type: BLOOD SPECIMENOrdering Facility: [facility] Address: [address] [place] [address] Performed By: #### 1 9123-9, 2777-, 44340-4 ####[facility] LABCLIA [id number] [place] [address] [place] Anion gap [Moles/Vol] 7 mmol/L Low 8-15 [facility] Comment on above: Order Comment: Speci men Type: BLOOD SPECIMENOrdering Facility: [facility] Address: [address] [place] [address] Performed By: #### 1 9123-9, 2777-1, 89486-0 ####[facility] LABCLIA [id number] [place] [address] [place] AST [Catalytic activity/Vol] 17 U/L Normal 13-35 [facility] Comment on above: Order Comment: Speci men Type: BLOOD SPECIMENOrdering Facility: [facility] Address: [address] [place] [address] Performed By: #### 1 9123-9, 27703-02, 45818-2 ####[facility] LABCLIA [id number] [place] [address] [place] Bilirubin [Mass/Vol] mg/dL Low 0.2-1.3 [facility] Comment on above: Order Comment: Speci men Type: BLOOD SPECIMENOrdering Facility: [facility] Address: [address] [place] [address] Performed By: #### 1 9123-9, 27703-02, 83770-4 ####[facility] LABCLIA [id number] [place] [address] [place] Calcium [Mass/Vol] 8.6 mg/dL Normal 8.5-10.2 [facility] Comment on above: Order Comment: Speci men Type: BLOOD SPECIMENOrdering Facility: [facility] Address: [address] [place] [address] Performed By: #### 1 9123-9, 27703-02, 25164-7 ####[facility] LABCLIA [id number] [place] [address] [place] Chloride [Moles/Vol] 112 mmol/L High 98-107 [facility] Comment on above: Order Comment: Speci men Type: BLOOD SPECIMENOrdering Facility: [facility] Address: [address] [place] [address] Performed By: #### 1 9123-9, 27703-02, ####[facility] LABCLIA [id number] [place] [id number] [place] CO2 [Moles/Vol] 24 mmol/L Normal 22-30 [facility] Comment on above: Order Comment: Speci men Type: BLOOD SPECIMENOrdering Facility: [facility] Address: [address] [place] [address] Performed By: #### 1 9123-9, 27703-02, ####[facility] LABCLIA [id number] [address] [place] Creatinine [Mass/Vol] 0.86 mg/dL Normal 0.58-0.96 [facility] Comment on above: Order Comment: Speci men Type: BLOOD SPECIMENOrdering Facility: [facility] Address: [address] [place] [address] Performed By: #### 1 9123-9, 27703-02, ####[facility] LABCLIA [id number] [address] [place] eGFRcr SerPlBld CKD-EPI 2020 79 mL/min/1.73m??? Normal >=60 [facility] Comment on above: Order Comment: Speci men Type: BLOOD SPECIMENOrdering Facility: [facility] Address: [address] [place] [address] Result Comment: Zaria mated Glomerular Filtration Rate [...] accurately reflect actual GFR. Performed By: #### 1 9123-9, 2777, 01160-9 ####[facility] LABCLIA [id number] [place] [id number] [place] Glucose [Mass/Vol] 87 mg/dL Normal 74-99 [facility] Comment on above: Order Comment: Speci men Type: BLOOD SPECIMENOrdering Facility: [facility] Address: [address] [place] [address] Result Comment: The [employer] Diabetes [employer] (ADA) provides guidance for cutoff values for fasting glucose and random glucose. The ADA defines fasting as no caloric intake for at least 8 hours. Fasting plasma glucose results between 100 to 125 mg/dL indicate increased risk for diabetes (prediabetes).Fasting plasma glucose results greater than or equal to 126 mg/dL meet the criteria for diagnosis of diabetes. In the absence of unequivocal hyperglycemia, results should be confirmed by repeat testing. In a patient with classic symptoms of hyperglycemia or hyperglycemic crisis, random plasma glucose results greater than or equal to 200 mg/dL meet the criteria for diagnosis of diabetes.Reference: Standards of Medical Care in Diabetes 2016, [employer] Diabetes Association. Diabetes Care. 2016.39(Suppl 1). Performed By: #### 1 9123-9, 2777-, 32686-5 ####[facility] LABCLIA [id number] [place] [address] [place] Potassium [Moles/Vol] 4.0 mmol/L Normal 3.7-5.1 [facility] Comment on above: Order Comment: Speci men Type: BLOOD SPECIMENOrdering Facility: [facility] Address: [address] [place] [address] Performed By: #### 1 9123-9, 2777, 02506-4 ####[facility] LABCLIA [id number] [place] [address] [place] Protein [Mass/Vol] 5.4 g/dL Low 6.3-8.0 [facility] Comment on above: Order Comment: Speci men Type: BLOOD SPECIMENOrdering Facility: [facility] Address: [address] [place] [address] Performed By: #### 1 9123-9, 2777, 14136-2 ####[facility] LABCLIA [id number] [place] [id number] [place] Sodium [Moles/Vol] 143 mmol/L Normal 136-144 [facility] Comment on above: Order Comment: Speci men Type: BLOOD SPECIMENOrdering Facility: [facility] Address: [address] [place] [address] Performed By: #### 1 9123-9, 2777-, ####[facility] LABCLIA [id number] [place] [address] [place] Urea nitrogen [Mass/Vol] 9 mg/dL Normal 7-21 [facility] Comment on above: Order Comment: Speci men Type: BLOOD SPECIMENOrdering Facility: [facility] Address: [address] [place] [address] Performed By: #### 1 9123-9, 27703-02, ####[facility] LABIA [id number] [place] [address] [place] ED NOTEon 07-01-2025 ED NOTE HNO ID: [id number] Author: ALICE MARTINEZ LPN Service: Emergency Medicine Author Type: Licensed Nurse Type: ED Notes Filed: 07/01/2025 15:13 Note Text: Pt left AMA signed form stated a few times her ride was outside. Normal [facility] ED NOTE HNO ID: [id number] Author: KIMBERLEY HINDS RN Service: ? Author Type: Registered Nurse Type: ED Notes Filed: 07/01/2025 03:35 Note Text: Report to BRITTANY Murphy. Normal [facility] Magnesium SerPl-ncon 07-01 Magnesium [Mass/Vol] 2.0 mg/dL Normal 1.7-2.3 [facility] Comment on above: Order Comment: Speci men Type: BLOOD SPECIMENOrdering Facility: [facility] Address: [address] [place] [address] Performed By: #### 1 9123-9, 27703-02, ####[facility] LABCLIA [id number] [place] [id number] [place] PT panel Coag (PPP)on 2024 INR Coag (PPP) [Relative time] 1.0 {INR} Normal 0.9-1.3 [facility] Comment on above: Order Comment: Speci men Type: BLOOD SPECIMENOrdering Facility: [facility] Address: [address] [place] [address] Result Comment: Kelly min K Antagonist (VKA) Therapeutic Range: INR 2 to 3 (Target INR of 2.5)Note: For patients treated with VKA drugs, such as warfarin, the [employer] 2012 Guideline recommends a therapeutic INR range of 2 to 3 (target INR of 2.5). This recommendation includes high-risk patients with antiphospholipid syndrome with previous arterial or venous thromboembolism, current-generation mechanical or bioprosthetic aortic heart valve replacement.Note: Patients with mechanical aortic valve replacement and additional risk factors for thromboembolic events (atrial fibrillation, previous thromboembolism, LV dysfunction, hypercoagulable conditions) or an older generation mechanical AVR (i.e., ball in-Cage) or any mechanical MVR should have a INR therapeutic range of 2.5 to 3.5 (target INR of 3).Tabitha GH, et al. Chest 2012, 141:7S-47SNishimura RA, et al. [facility] 2017, 70: 252-289 Performed By: #### 1 4979-9, 71575-8 ####[facility] LABCLIA [id number] [place] [id number] [place] PT Coag (PPP) [Time] 10.3 s Normal 9.7-13.0 [facility] Comment on above: Order Comment: Speci men Type: BLOOD SPECIMENOrdering Facility: [facility] Address: [address] [place] [address] Performed By: #### 1 4979-9, 56000-2 ####[facility] LABCLIA [id number] [place] [id number] [place] Phosphate SerPl-mCncon 07-01 Phosphate [Mass/Vol] 3.6 mg/dL Normal 2.7-4.8 [facility] Comment on above: Order Comment: Speci men Type: BLOOD SPECIMENOrdering Facility: [facility] Address: [address] [place] [address] Performed By: #### 1 9123-9, 2777-1, 00797-7 ####[facility] LABCLIA [id number] [address] [place] aPTT PPPon 07-01-2025 aPTT Coag (PPP) [Time] s Low 23.0-32.4 [facility] Comment on above: Order Comment: Speci men Type: BLOOD SPECIMENOrdering Facility: [facility] Address: [address] [place] [address] Result Comment: Samp le checked for clot.Result rechecked. Performed By: #### 1 4979-9, 64290-9 ####[facility] LABCLIA [id number] [address] [place] ALLIED HEALTHon 06-30-2025 ALLIED HEALTH Normal [facility] CBC W Auto Differential pane l (Bld)on 06-30-2025 Basophils (Bld) [#/Vol] 0.03 10*3/uL Normal <0.11 [facility] Comment on above: Order Comment: Speci men Type: BLOOD SPECIMENOrdering Facility: [facility] Address: [address] [place] [address] Performed By: #### 5 7021-8 ####[facility] LABCLIA [id number] [address] [place] Basophils/100 WBC (Bld) 0.5 % Normal [facility] Comment on above: Order Comment: Speci men Type: BLOOD SPECIMENOrdering Facility: [facility] Address: [address] [place] [address] Performed By: #### 5 7021-8 ####[facility] LABCLIA [id number] [place] [address] [place] Differential cell count method Nom (Bld) Auto Normal [facility] Comment on above: Order Comment: Speci men Type: BLOOD SPECIMENOrdering Facility: [facility] Address: [address] [place] [address] Performed By: #### 5 7021-8 ####[facility] LABCLIA [id number] [place] [address] [place] Eosinophils (Bld) [#/Vol] 0.16 10*3/uL Normal <0.46 [facility] Comment on above: Order Comment: Speci men Type: BLOOD SPECIMENOrdering Facility: [facility] Address: [address] [place] [address] Performed By: #### 5 7021-8 ####[facility] LABCLIA [id number] [address] [place] [facility] Eosinophils/100 WBC (Bld) 2.9 % Normal [facility] Comment on above: Order Comment: Speci men Type: BLOOD SPECIMENOrdering Facility: [facility] Address: [address] [place] [address] Performed By: #### 5 7021-8 ####[facility] LABCLIA [id number] [place] [address] [place] Erythrocyte distribution width (RBC) [Ratio] 13.2 % Normal 11.5-15.0 [facility] Comment on above: Order Comment: Speci men Type: BLOOD SPECIMENOrdering Facility: [facility] Address: [address] [place] [address] Performed By: #### 5 7021-8 ####[facility] LABCLIA [id number] [place] [address] [place] Hematocrit (Bld) [Volume fraction] 33.8 % Low 36.0-46.0 [facility] Comment on above: Order Comment: Speci men Type: BLOOD SPECIMENOrdering Facility: [facility] Address: [address] [place] [address] Performed By: #### 5 7021-8 ####[facility] LABCLIA [id number] [place] [address] [place] Hemoglobin (Bld) [Mass/Vol] 10.7 g/dL Low 11.5-15.5 [facility] Comment on above: Order Comment: Speci men Type: BLOOD SPECIMENOrdering Facility: [facility] Address: [address] [place] [address] Performed By: #### 5 7021-8 ####[facility] LABCLIA [id number] [place] [address] [place] Immature granulocytes (Bld) [#/Vol] 10*3/uL Normal <0.10 [facility] Comment on above: Order Comment: Speci men Type: BLOOD SPECIMENOrdering Facility: [facility] Address: [address] [place] [address] Performed By: #### 5 7021-8 ####[facility] LABCLIA [id number] [place] [address] [place] Immature granulocytes/100 WBC (Bld) 0.4 % Normal [facility] Comment on above: Order Comment: Speci men Type: BLOOD SPECIMENOrdering Facility: [facility] Address: [address] [place] [address] Performed By: #### 5 7021-8 ####[facility] LABCLIA [id number] [place] [address] [place] Lymphocytes (Bld) [#/Vol] 0.90 10*3/uL Low 1.00-4.00 [facility] Comment on above: Order Comment: Speci men Type: BLOOD SPECIMENOrdering Facility: [facility] Address: [address] [place] [address] Performed By: #### 5 7021-8 ####[facility] LABCLIA [id number] [place] [address] [place] Lymphocytes/100 WBC (Bld) 16.1 % Normal [facility] Comment on above: Order Comment: Speci men Type: BLOOD SPECIMENOrdering Facility: [facility] Address: [address] [place] [address] Performed By: #### 5 7021-8 ####[facility] LABCLIA [id number] [place] [address] [place] MCH (RBC) [Entitic mass] 29.3 pg Normal 26.0-34.0 [facility] Comment on above: Order Comment: Speci men Type: BLOOD SPECIMENOrdering Facility: [facility] Address: [address] [place] [address] Performed By: #### 5 7021-8 ####[facility] LABCLIA [id number] [place] [address] [place] MCHC (RBC) [Mass/Vol] 31.7 g/dL Normal 30.5-36.0 [facility] Comment on above: Order Comment: Speci men Type: BLOOD SPECIMENOrdering Facility: [facility] Address: [address] [place] [address] Performed By: #### 5 7021-8 ####[facility] LABCLIA [id number] [place] [address] [place] MCV (RBC) [Entitic vol] 92.6 fL Normal 80.0-100.0 C [facility] Comment on above: Order Comment: Speci men Type: BLOOD SPECIMENOrdering Facility: [facility] Address: [address] [place] [address] Performed By: #### 5 7021-8 ####[facility] LABCLIA [id number] [place] [address] [place] Monocytes (Bld) [#/Vol] 0.70 10*3/uL Normal <0.87 [facility] Comment on above: Order Comment: Speci men Type: BLOOD SPECIMENOrdering Facility: [facility] Address: [address] [place] [address] Performed By: #### 5 7021-8 ####[facility] LABCLIA [id number] [place] [address] [place] Monocytes/100 WBC (Bld) 12.5 % Normal C [facility] Comment on above: Order Comment: Speci men Type: BLOOD SPECIMENOrdering Facility: [facility] Address: [address] [place] [address] Performed By: #### 5 7021-8 ####[facility] LABCLIA [id number] [place] [address] [place] Neutrophils (Bld) [#/Vol] 3.77 10*3/uL Normal 1.45-7.50 [facility] Comment on above: Order Comment: Speci men Type: BLOOD SPECIMENOrdering Facility: [facility] Address: [address] [place] [address] Performed By: #### 5 7021-8 ####[facility] LABCLIA [id number] [place] [address] [place] Neutrophils/100 WBC (Bld) 67.6 % Normal [facility] Comment on above: Order Comment: Speci men Type: BLOOD SPECIMENOrdering Facility: [facility] Address: [address] [place] [address] Performed By: #### 5 7021-8 ####[facility] LABCLIA [id number] [place] [address] [place] Nucleated RBC (Bld) [#/Vol] 10*3/uL Normal <0.01 [facility] Comment on above: Order Comment: Speci men Type: BLOOD SPECIMENOrdering Facility: [facility] Address: [address] [place] [address] Performed By: #### 5 7021-8 ####[facility] LABCLIA [id number] [place] [address] [place] Nucleated RBC/100 WBC (Bld) [Ratio] 0.0 /100 WBC Normal [facility] Comment on above: Order Comment: Speci men Type: BLOOD SPECIMENOrdering Facility: [facility] Address: [address] [place] [address] Performed By: #### 5 7021-8 ####[facility] LABCLIA [id number] [place] [address] [place] Platelet mean volume (Bld) [Entitic vol] 11.4 fL Normal 9.0-12.7 [facility] Comment on above: Order Comment: Speci men Type: BLOOD SPECIMENOrdering Facility: [facility] Address: [address] [place] [address] Performed By: #### 5 7021-8 ####[facility] LABCLIA [id number] [place] [address] [place] Platelets (Bld) [#/Vol] 291 10*3/uL Normal 150-400 [facility] Comment on above: Order Comment: Speci men Type: BLOOD SPECIMENOrdering Facility: [facility] Address: [address] [place] [address] Performed By: #### 5 7021-8 ####[facility] LABCLIA [id number] [place] [address] [place] RBC (Bld) [#/Vol] 3.65 10*6/uL Low 3.90-5.20 [facility] Comment on above: Order Comment: Speci men Type: BLOOD SPECIMENOrdering Facility: [facility] Address: [address] [place] [address] Performed By: #### 5 7021-8 ####[facility] LABCLIA [id number] [place] [address] [place] WBC (Bld) [#/Vol] 5.58 10*3/uL Normal 3.70-11.00 [facility] Comment on above: Order Comment: Speci men Type: BLOOD SPECIMENOrdering Facility: [facility] Address: [address] [place] [address] Performed By: #### 5 7021-8 ####[facility] LABCLIA [id number] [place] [address] [place] CONSULTon 06-30-2025 CONSULT Normal [facility] CTA HEAD WO/W IVCONon 2024 CTA HEAD WO/W IVCON Normal [facility] CTA NECK W IVCONon CTA NECK W IVCON Normal [facility] Comprehensive metabolic 2000 panelon 06-30-2025 Albumin [Mass/Vol] 4.0 g/dL Normal 3.9-4.9 [facility] Comment on above: Order Comment: Speci men Type: BLOOD SPECIMENOrdering Facility: [facility] Address: [address] [place] [address] Performed By: #### 1 9123-9, 73671-3, [id number], 99754-9 ####[facility] LABCLIA [id number] [place] [address] [place] ALP [Catalytic activity/Vol] 115 U/L Normal 34-123 [facility] Comment on above: Order Comment: Speci men Type: BLOOD SPECIMENOrdering Facility: [facility] Address: [address] [place] [address] Performed By: #### 1 9123-9, 94002-4, BPP8638, 64675-0 ####[facility] LABCLIA [id number] [place] [address] [place] ALT [Catalytic activity/Vol] 15 U/L Normal 7-38 [facility] Comment on above: Order Comment: Speci men Type: BLOOD SPECIMENOrdering Facility: [facility] Address: [address] [place] [address] Performed By: #### 1 9123-9, 62217-7, CHD6862, 26171-3 ####[facility] LABCLIA [id number] [place] [id number] [place] Anion gap [Moles/Vol] 8 mmol/L Normal 8-15 [facility] Comment on above: Order Comment: Speci men Type: BLOOD SPECIMENOrdering Facility: [facility] Address: [address] [place] [address] Performed By: #### 1 9123-9, 15397-4, [id number], 96749-1 ####[facility] LABCLIA [id number] [place] [address] [place] AST [Catalytic activity/Vol] 21 U/L Normal 13-35 [facility] Comment on above: Order Comment: Speci men Type: BLOOD SPECIMENOrdering Facility: [facility] Address: [address] [place] [address] Result Comment: Resu lts may be falsely increased due to interference from hemolysis. Suggest reorder as clinically indicated. Performed By: #### 1 9123-9, 54993-8, [id number], 99174-5 ####[facility] LABCLIA [id number] [place] [address] [place] Bilirubin [Mass/Vol] mg/dL Low 0.2-1.3 [facility] Comment on above: Order Comment: Speci men Type: BLOOD SPECIMENOrdering Facility: [facility] Address: [address] [place] [address] Performed By: #### 1 9123-9, 33062-7, WLV0912, 71901-5 ####[facility] LABCLIA [id number] [place] [address] [place] Calcium [Mass/Vol] 9.4 mg/dL Normal 8.5-10.2 [facility] Comment on above: Order Comment: Speci men Type: BLOOD SPECIMENOrdering Facility: [facility] Address: [address] [place] [address] Performed By: #### 1 9123-9, 38595-0, [id number], 91801-4 ####[facility] LABCLIA [id number] [place] [id number] [place] Chloride [Moles/Vol] 105 mmol/L Normal 98-107 [facility] Comment on above: Order Comment: Speci men Type: BLOOD SPECIMENOrdering Facility: [facility] Address: [address] [place] [address] Performed By: #### 1 9123-9, 98557-8, MEH1603, 33373-8 ####[facility] LABCLIA [id number] [place] [address] [place] CO2 [Moles/Vol] 24 mmol/L Normal 22-30 [facility] Comment on above: Order Comment: Speci men Type: BLOOD SPECIMENOrdering Facility: [facility] Address: [address] [place] [address] Performed By: #### 1 9123-9, 33940-2, [id number], 47236-9 ####[facility] LABCLIA [id number] [place] [address] [place] Creatinine [Mass/Vol] 0.82 mg/dL Normal 0.58-0.96 [facility] Comment on above: Order Comment: Speci men Type: BLOOD SPECIMENOrdering Facility: [facility] Address: [address] [place] [address] Performed By: #### 1 9123-9, 01344-5, HYS7262, 01743-3 ####[facility] LABCLIA [id number] [place] [address] [place] eGFRcr SerPlBld CKD-EPI 2020 84 mL/min/1.73m??? Normal >=60 [facility] Comment on above: Order Comment: Speci men Type: BLOOD SPECIMENOrdering Facility: [facility] Address: [address] [place] [address] Result Comment: Zaria mated Glomerular Filtration Rate [...] accurately reflect actual GFR. Performed By: #### 1 9123-9, 98966-0, [id number], 12820-3 ####[facility] LABCLIA [id number] [place] [id number] [place] Glucose [Mass/Vol] 84 mg/dL Normal 74-99 [facility] Comment on above: Order Comment: Speci men Type: BLOOD SPECIMENOrdering Facility: [facility] Address: [address] [place] [address] Result Comment: The [employer] (ADA) provides guidance for cutoff values for fasting glucose and random glucose. The ADA defines fasting as no caloric intake for at least 8 hours. Fasting plasma glucose results between 100 to 125 mg/dL indicate increased risk for diabetes (prediabetes).Fasting plasma glucose results greater than or equal to 126 mg/dL meet the criteria for diagnosis of diabetes. In the absence of unequivocal hyperglycemia, results should be confirmed by repeat testing. In a patient with classic symptoms of hyperglycemia or hyperglycemic crisis, random plasma glucose results greater than or equal to 200 mg/dL meet the criteria for diagnosis of diabetes.Reference: Standards of Medical Care in Diabetes 2016, [employer]. Diabetes Care. 2016.39(Suppl 1). Performed By: #### 1 9123-9, 09614-9, [id number], 69593-1 ####[facility] LABCLIA [id number] [place] [address] [place] Potassium [Moles/Vol] 4.7 mmol/L Normal 3.7-5.1 [facility] Comment on above: Order Comment: Speci men Type: BLOOD SPECIMENOrdering Facility: [facility] Address: [address] [place] [address] Performed By: #### 1 9123-9, 12818-9, [id number], 31601-7 ####[facility] LABCLIA [id number] [place] [address] [place] Protein [Mass/Vol] 6.7 g/dL Normal 6.3-8.0 [facility] Comment on above: Order Comment: Speci men Type: BLOOD SPECIMENOrdering Facility: [facility] Address: [address] [place] [address] Performed By: #### 1 9123-9, 23035-9, [id number], 40558-6 ####[facility] LABCLIA [id number] [place] [id number] [place] Sodium [Moles/Vol] 137 mmol/L Normal 136-144 [facility] Comment on above: Order Comment: Speci men Type: BLOOD SPECIMENOrdering Facility: [facility] Address: [address] [place] [address] Performed By: #### 1 9123-9, 85734-4, [id number], 24422-1 ####[facility] LABCLIA [id number] [address] STATES OF [facility] Urea nitrogen [Mass/Vol] 12 mg/dL Normal 7-21 [facility] Comment on above: Order Comment: Speci men Type: BLOOD SPECIMENOrdering Facility: [facility] Address: [address] [place] [address] Performed By: #### 1 9123-9, 09787-6, [id number], 09278-6 ####[facility] LABCLIA [id number] [place] [address] [place] ED PROV NOTEon 06-30-2025 ED PROV NOTE Normal [facility] ED PROV NOTE Normal [facility] HIGH SENSITIVITY TROPONIN T (INITIAL)on 06-30-2025 Troponin T.cardiac High sensitivity method [Mass/Vol] <6 Normal <12 [facility] Comment on above: Order Comment: Speci men Type: BLOOD SPECIMENOrdering Facility: [facility] Address: [address] [place] [address] Performed By: #### 1 9123-9, 14980-1, [id number], 41901-2 ####[facility] LABCLIA [id number] [place] [id number] [facility] [place] HIGH SENSITIVITY TROPONIN T (SECOND)on 06-30-2025 Troponin T.cardiac High sensitivity method [Mass/Vol] <6 Normal <12 [facility] Comment on above: Order Comment: Speci men Type: BLOOD SPECIMENOrdering Facility: [facility] Address: [address] [place] [address] Performed By: #### L [id number] ####[facility] LABCLIA [id number] [place] [id number] [place] HISTORY PHYSICALon HISTORY PHYSICAL Normal [facility] MRA CAROTID WO/W IVCONon MRA CAROTID WO/W IVCON Normal Cl [facility] MRI BRAIN WO IVCONon 025 MRI BRAIN WO IVCON Normal [facility] Magnesium SerPl-mCncon 06-30 Magnesium [Mass/Vol] 2.2 mg/dL Normal 1.7-2.3 [facility] Comment on above: Order Comment: Speci men Type: BLOOD SPECIMENOrdering Facility: [facility] Address: [address] [place] [address] Performed By: #### 1 9123-9, 55787-3, [id number], 23578-3 ####[facility] LABCLIA [id number] [address] [place] NT-proBNP SerPl-mCncon 06-30 Natriuretic peptide.B prohormone N-Terminal [Mass/Vol] 92 pg/mL Normal <125 [facility] Comment on above: Order Comment: Speci men Type: BLOOD SPECIMENOrdering Facility: [facility] Address: [address] [place] [address] Performed By: #### 1 9123-9, 78271-0, [id number], 98567-4 ####[facility] LABCLIA [id number] [address] [place] Absolute lymphocyte countOrd ered By: Renato Hanley on 06-29-2025 Lymphocytes Auto (Unsp spec) [#/Vol] 1.05 10*3/uL 0.83-4.51 [facility] Absolute neutrophil countOrd ered By: Renato Hanley on 06-29-2025 Neutrophils (Bld) [#/Vol] 4.5 10*3/uL 2.0-7.7 [facility] Anion gap in Serum or Plasma Ordered By: Renato Hanley on 06-29-2025 Anion gap [Moles/Vol] 9 mmol/L 5-15 [facility] Automated lymphocyte count a s percentage of total leukocytesOrdered By: Renato Hanley on 06-29-2025 Lymphocytes/100 WBC Auto (Unsp spec) 15.4 % Low 19-41 [facility] BUN/creatinine ratioOrdered By: Renato Hanley on 06-29-2025 Urea nitrogen/Creatinine [Mass ratio] 16.5 mg/mg 06-21 [facility] Basic Metabolic Profile (BMP )on 06-29-2025 BUN/CRE 16.5 RATIO Normal 06-21 [facility] Comment on above: Performed By: #### L 500.3400, L501.9520, L501.2450, L500.2500, L501.5200 #### [facility] Laboratory [address] [place], [address] Calcium [Mass/Vol] 9.4 mg/dL Normal 7.6-11.0 [facility] Comment on above: Performed By: #### L 500.3400, L501.9520, L501.2450, L500.2500, L501.5200 #### [facility] [address] [place], [address] Chloride [Moles/Vol] 102 mmol/L Normal 98-108 [facility] Comment on above: Performed By: #### L 500.3400, L501.9520, L501.2450, L500.2500, L501.5200 #### [facility] [address] [place], [address] CO2 [Moles/Vol] 26.6 mmol/L Normal 21.0-32.0 [facility] Comment on above: Performed By: #### L 500.3400, L501.9520, L501.2450, L500.2500, L501.5200 #### [facility] [address] [place], [address] Creatinine [Mass/Vol] 1.01 mg/dL Normal 0.70-1.20 [facility] Comment on above: Performed By: #### L 500.3400, L501.9520, L501.2450, L500.2500, L501.5200 #### [facility] [address] [place], [address] ECRCL 54.95 ml/min Normal 50-250 [facility] Comment on above: Performed By: #### L 500.3400, L501.9520, L501.2450, L500.2500, L501.5200 #### [facility] [address] [place], [address] GAP 9 Normal 5-15 [facility] Comment on above: Performed By: #### L 500.3400, L501.9520, L501.2450, L500.2500, L501.5200 #### [facility] [address] [place], [address] GFR/1.73 sq M.predicted among non-blacks MDRD (S/P/Bld) [Vol rate/Area] 65 mL/min/{1.73_m2} Normal >60 [facility] Comment on above: Result Comment: mL/m in/1.73m2 CKD-EPI Creatinine Equation (2020) Performed By: #### L 500.3400, L501.9520, L501.2450, L500.2500, L501.5200 #### [facility] [address] [place], [address] Glucose [Mass/Vol] 97 mg/dL Normal 70-99 [facility] Comment on above: Performed By: #### L 500.3400, L501.9520, L501.2450, L500.2500, L501.5200 #### [facility] [address] [place], [address] Potassium [Moles/Vol] 4.4 mmol/L Normal 3.3-5.1 [facility] Comment on above: Performed By: #### L 500.3400, L501.9520, L501.2450, L500.2500, L501.5200 #### [facility] [address] [place], [address] Sodium [Moles/Vol] 138 mmol/L Normal 133-145 [facility] Comment on above: Performed By: #### L 500.3400, L501.9520, L501.2450, L500.2500, L501.5200 #### [facility] [address] [place], [address] Urea nitrogen [Mass/Vol] 17 mg/dL Normal 4-19 [facility] Comment on above: Performed By: #### L 500.3400, L501.9520, L501.2450, L500.2500, L501.5200 #### [facility] [address] [place], [address] Basophil percentageOrdered B y: Renato Hanley on 06-29-2025 Basophils/100 WBC (Bld) 0.4 % 0-1 [facility] Bilirubin Test strip Ql (U)O rdered By: Renato Hanley on 06-29-2025 Bilirubin Ql (U) Negative Negative [facility] Bilirubin directOrdered By: Renato Hanley on 06-29-2025 Bilirubin.direct [Mass/Vol] 0.10 mg/dL 0.00-0.30 [facility] Bilirubin, totalOrdered By: Renato Hanley on 06-29-2025 Bilirubin [Mass/Vol] 0.17 mg/dL 0.00-1.30 [facility] CBC W/Diff, Automatedon 06-03 Absolute Lymph 1.05 X10 3/uL Normal 0.83-4.51 [facility] Comment on above: Performed By: #### L 100.0100 ####[facility] [address] [place], [address] Absolute Neut 4.5 X10 3/uL Normal 2.0-7.7 [facility] Comment on above: Performed By: #### L 100.0100 ####[facility] [address] [place], [address] Basophils/100 WBC (Bld) 0.4 % Normal 0-1 [facility] Comment on above: Performed By: #### L 100.0100 ####[facility] [address] [place], [address] Eosinophils/100 WBC (Bld) 3.1 % Normal 0-5 [facility] Comment on above: Performed By: #### L 100.0100 ####[facility] [address] [place], [address] Erythrocyte distribution width (RBC) [Ratio] 13.1 % Normal 11.6-14.6 [facility] Comment on above: Performed By: #### L 100.0100 ####[facility] [address] [place], [address] Hematocrit (Bld) [Volume fraction] 34.1 % Low 37-47 [facility] Comment on above: Performed By: #### L 100.0100 ####[facility] [address] [place], [address] Hemoglobin (Bld) [Mass/Vol] 11.2 g/dL Low 12.0-15.0 [facility] Comment on above: Performed By: #### L 100.0100 ####[facility] [address] [place], [address] IG% 0.300 Normal 0.0-0.9 [facility] Comment on above: Result Comment: IG% - Immature Granulocytes (promyelocytes, myelocytes and metamyelocytes) > 1% indicates that a LEFT SHIFT is Present. Performed By: #### L 100.0100 ####[facility] [address] [place], [address] Lymphocytes/100 WBC (Bld) 15.4 % Low 19-41 [facility] Comment on above: Performed By: #### L 100.0100 ####[facility] [address] [place], [address] MCH (RBC) [Entitic mass] 29.6 pg Normal 27.0-32.0 [facility] Comment on above: Performed By: #### L 100.0100 ####[facility] [address] [place], [address] MCHC (RBC) [Mass/Vol] 32.8 g/dL Normal 32-36 [facility] Comment on above: Performed By: #### L 100.0100 ####[facility] [address] [place], [address] MCV (RBC) [Entitic vol] 90.0 fL Normal 81-99 [facility] Comment on above: Performed By: #### L 100.0100 ####[facility] [address] [place], [address] Monocytes/100 WBC (Bld) 14.2 % High 0-10 [facility] Comment on above: Performed By: #### L 100.0100 ####[facility] [address] [place], [address] Neutrophils/100 WBC (Bld) 66.6 % Normal 47-70 [facility] Comment on above: Performed By: #### L 100.0100 ####[facility] [address] [place], [address] Nucleated RBC (Bld) [#/Vol] 0 10*3/uL Normal 0-5 [facility] Comment on above: Performed By: #### L 100.0100 ####[facility] [address] [place], [address] Platelet mean volume (Bld) [Entitic vol] 10.4 fL Normal 6.2-12.0 [facility] Comment on above: Performed By: #### L 100.0100 ####[facility] [address] [place], [address] Platelets (Bld) [#/Vol] 311 10*3/uL Normal 150-450 [facility] Comment on above: Performed By: #### L 100.0100 ####[facility] [address] [place], [address] RBC (Bld) [#/Vol] 3.79 10*6/uL Low 4.2-5.4 [facility] Comment on above: Performed By: #### L 100.0100 ####[facility] [address] [place], [address] RDW SD 43.0 fl Normal 35.1-43.9 [facility] Comment on above: Performed By: #### L 100.0100 ####[facility] [address] [place], [address] WBC (Bld) [#/Vol] 6.8 10*3/uL Normal 4.4-11.0 [facility] Comment on above: Performed By: #### L 100.0100 ####[facility] [address] [place], [address] Carbon dioxide, total [Moles /volume] in Central venous bloodOrdered By: Renato Hanley on 06-29-2025 CO2 [Moles/Vol] 26.6 mmol/L 21.0-32.0 [facility] Chest 1 View (Portable)on Chest 1 View (Portable) [facility] Imaging Services [address] [place] [address] Chest 1 View (Portable) MR#: [id number] Acct: [id number] Name: ALLIE LYNN Rep #: [id number] : 1970 F 55 From: Fercho us MD PCP: Dr. Ifeoma Davis MD Status: REG ER Study: Chest 1 View (Portable) Date of Exam: 06/29/25 Exam# [id number] Ordering Dr: Renato Hanley DO PROCEDURE: CHEST 1 VIEW (PORTABLE) 06/29/2025 REASON FOR EXAM: WEAKNESS TECHNIQUE: Frontal view of the chest. COMPARISON: None FINDINGS: The lungs are expanded. There is no demonstrated parenchymal abnormality. There is no demonstrated pleural abnormality. Normal heart and pericardium. Normal visualized aortic arch and descending thoracic aorta. No acute osseous abnormalities . There is no demonstrated abnormality of the visualized soft tissue structures of the upper abdomen. RAD/Chest 1 View (Portable) IMPRESSION: No acute cardiopulmonary process Reading Location: [place] [address] CC: Dr. Ifeoma Davis MD; Renato Hanley DO County Assessor: Signed Normal [facility] Chloride assayOrdered By: Mojgan Hanley on 06-29-2025 Chloride [Moles/Vol] 102 mmol/L 98-108 [facility] Emergency Department Summary on 06-29-2025 Emergency Department Summary [facility] Medical Records Department [address] [place] [address] Emergency Department Summary 06/29/25 MR#: [id number] Acct: [id number] Name: ALLIE LYNN Rep #: [id number] : 1970 55 From: Renato Hanley DO PCP: Dr. Ifeoma Davis MD Status:DEP ER Location: ED HPI History of Present Illness Chief Complaint: Weakness Informant: patient and EMS Narrative Narrative: Patient is a 55-year-old female with past medical history of fibromyalgia hypertension and hyperlipidemia. She states that she has been having her medication adjusted as she needs to come off certain medications in order to receive surgery. She states that she has been having difficulty sleeping secondary to this and that this evening despite taking Benadryl and 100 mg of trazodone could not fall asleep. Associate with the insomnia she just feels reported "weak". She states this is a generalized weakness and not focal. She denies any fevers or chills. She denies any known sick contact. However because of the overall unwell feeling she is concerned there may be a developing infection and with this comes in for evaluation [facility] Medical History (Updated 06/29/25 @ 22:[address] Renato Hanley, DO) PXE (pseudoxanthoma elasticum) Wears glasses Depression Anxiety High cholesterol Ambulates [...] tab PO QDAY HTN 12/09/24 Unknown History mg-hydrochlorothiazid e 12.5 mg tablet magnesium 200 mg tablet 200 mg PO QDAY SUPPLEMENT 12/09/24 Unknown History zolpidem 5 mg tablet 5 mg PO QHS PRN sleep 12/09/24 Unk nown History fluticasone propionate 50 2 spray intranasal QDAY ALLERGIES 03/10/25 Unknown History mcg/actuation nasal spray,suspension oxycodone-acetaminoph en 5 mg-325 0.5 - 1 tab PO TID PRN pain Unknown History mg tablet cyclobenzaprine 10 mg tablet 10 mg PO HS MUSCLE SPASM 06/04/25 Unknown History Lactobacillus 25 billion 1 cap PO DAILY SUPPLMENT 06/11/25 Unknown History cell-Bifido 25 billion lyjr-BKT-tsqmu capsule cevimeline 30 mg capsule 1 cap [...] Time hydrocodone bitartrate (From AdvReac Itching Verified 06/29/25 02:45 Vicodin) nitrofurantoin (From [facility] Other Verified 06/29/25 02:45 Macrobid) nitrofurantoin [facility] Other Verified 06/29/25 02:45 macrocrystalline (From Macrobid) propoxyphene (From [facility] Other Verified 06/29/25 02:45 Darvocet-N) tramadol HCl (From Ultram) [facility] Other Verified 06/29/25 02:45 Family History Father Lung cancer Mother COPD (chronic obstructive pulmonary disease) CVA (cerebral vascular accident) Son Myocardial infarction Other Breast cancer Ovarian c (more content not included)... Normal [facility] Eosinophil percentageOrdered By: Renato Hanley on 06-29-2025 Eosinophils/100 WBC (Bld) 3.1 % 0-5 [facility] Erythrocyte distribution wid th ratioOrdered By: Renato Hanley on 06-29-2025 Erythrocyte distribution width (RBC) [Ratio] 13.1 % 11.6-14.6 [facility] [facility] Erythrocyte distribution wid th standard deviationOrdered By: Renato Hanley on 06-29-2025 Erythrocyte distribution width (RBC) [Ratio] 43.0 fl 35.1-43.9 [facility] Glomerular filtration rate ( GFR) estimation/1.73 sq m using serum, plasma, or whole bOrdered By: Renato Hanley on 06-29-2025 GFR/1.73 sq M.predicted among non-blacks MDRD (S/P/Bld) [Vol rate/Area] 65 mL/min/{1.73_m2} >60 [facility] Comment on above: mL/min/1.73m2 CKD-EP I Creatinine Equation (2020) Hematocrit Auto (Bld) [Volum e fraction]Ordered By: Renato Hanley on 06-29-2025 Hematocrit (Bld) [Volume fraction] 34.1 % Low 37-47 [facility] Hemoglobin measurementOrdere d By: Renato Hanley on 06-29-2025 Hemoglobin (Bld) [Mass/Vol] 11.2 g/dL Low 12.0-15.0 [facility] Immature granulocytes/100 WB C Auto (Bld)Ordered By: Renato Hanley on 06-29-2025 Immature granulocytes/100 WBC (Bld) 0.300 % 0.0-0.9 [facility] Comment on above: IG% - Immature Granu locytes (promyelocytes, myelocytes and metamyelocytes) > 1% indicates that a LEFT SHIFT is Present. Influenza virus A and B and SARS-CoV-2 (COVID-19) and Respiratory syncytial virus RNAOrdered By: Renato Hanley on 06-29-2025 SARS-CoV-2 (COVID-19) RNA SUKUMAR+probe Ql (Unsp spec) [facility] Ketones Test strip Ql (U)Ord ered By: Renato Hanley on 06-29-2025 Ketones Ql (U) Negative Negative [facility] Laboratory - Chemistry and C hemistry - challengeOrdered By: Renato Hanley on 06-29-2025 AST [Catalytic activity/Vol] 17 U/L <32 [facility] Lipaseon 06-29-2025 Lipase [Catalytic activity/Vol] 22 U/L Normal 13-75 [facility] Comment on above: Result Comment: Janet almanza note: LIPASE revised reference range effective 22. New Lipase methodology. Expected to produce lower values than the previous assay method. NEW Reference Range: 13 - 75 U/L Performed By: #### L 500.3400, L501.9520, L501.2450, L500.2500, L501.5200 #### [facility] Laboratory [address] [place], [address] Lipase measurementOrdered By : Renato Hanley on 06-29-2025 Lipase [Catalytic activity/Vol] 22 U/L 13-75 [facility] Comment on above: Please note:LIPASE r evised reference range effective 22. New Lipase methodology. Expected to produce lower values than the previous assay method. NEW Reference Range: 13 - 75 U/L Liver Profileon 06-29-2025 Albumin [Mass/Vol] 4.1 g/dL Normal 3.5-5.0 [facility] Comment on above: Performed By: #### L 500.3400, L501.9520, L501.2450, L500.2500, L501.5200 #### [facility] Laboratory [address] [place], [address] ALK PHOS 113 U/L High 35-104 [facility] Comment on above: Performed By: #### L 500.3400, L501.9520, L501.2450, L500.2500, L501.5200 #### [facility] [address] [place], [address] ALT [Catalytic activity/Vol] 16 U/L Normal <=34 [facility] Comment on above: Performed By: #### L 500.3400, L501.9520, L501.2450, L500.2500, L501.5200 #### [facility] [address] [place], [address] AST [Catalytic activity/Vol] 17 U/L Normal <=31 [facility] Comment on above: Performed By: #### L 500.3400, L501.9520, L501.2450, L500.2500, L501.5200 #### [facility] [address] [place], [address] Bilirubin [Mass/Vol] 0.17 mg/dL Normal 0.00-1.30 [facility] Comment on above: Performed By: #### L 500.3400, L501.9520, L501.2450, L500.2500, L501.5200 #### [facility] [address] [place], [address] Bilirubin.direct [Mass/Vol] 0.10 mg/dL Normal 0.00-0.30 [facility] Comment on above: Performed By: #### L 500.3400, L501.9520, L501.2450, L500.2500, L501.5200 #### [facility] [address] [place], [address] Globulin (S) [Mass/Vol] 2.5 g/dL Normal 2.2-4.2 [facility] Comment on above: Performed By: #### L 500.3400, L501.9520, L501.2450, L500.2500, L501.5200 #### [facility] [address] [place], [address] T PROT 6.5 g/dL Normal 5.9-8.4 [facility] Comment on above: Performed By: #### L 500.3400, L501.9520, L501.2450, L500.2500, L501.5200 #### [facility] [address] [place], [address] M100.678on 06-29-2025 M100.678 SARS-CoV-2 (COVID 19 ) Negative INFLUENZA A Negative INFLUENZA B Negative RSV PCR Negative Normal [facility] Comment on above: Performed By: #### M 100.678 ####[facility] [address] [place], [place], [address] MCV (mean corpuscular volume ) determinationOrdered By: Renato Hanley on 06-29-2025 MCV (RBC) [Entitic vol] 90.0 fL 81-99 [facility] Magnesiumon 06-29-2025 Magnesium [Mass/Vol] 2.1 mg/dL Normal 1.5-2.2 [facility] Comment on above: Performed By: #### L 500.3400, L501.9520, L501.2450, L500.2500, L501.5200 #### [facility] Laboratory [address] [place], [place], [id number] Magnesium measurement (mass/ volume)Ordered By: Renato Hanley on 06-29-2025 Magnesium (Unsp spec) [Mass/Vol] 2.1 mg/dL 1.5-2.2 [facility] Mean corpuscular hemoglobin (MCH) determinationOrdered By: Renato Hanley on 06-29-2025 MCH (RBC) [Entitic mass] 29.6 pg 27.0-32.0 [facility] Mean corpuscular hemoglobin concentration (MCHC) determinationOrdered By: Renato Hanley on 06-29-2025 MCHC (RBC) [Mass/Vol] 32.8 g/dL 32-36 [facility] Mean platelet volume determi nationOrdered By: Renato Hanley on 06-29-2025 Platelet mean volume (Bld) [Entitic vol] 10.4 fL 6.2-12.0 [facility] Microscopic analysis of urin e for red blood cells (RBC)Ordered By: Renato Hanley on 06-29-2025 Microscopic analysis of urine for red blood cells (RBC) 0-5 SEEN /hpf 0-5 [facility] Monocyte percentageOrdered B y: Renato Hanley on 06-29-2025 Monocytes/100 WBC (Bld) 14.2 % High 0-10 [facility] Mucus LM Ql (Urine sed)Order ed By: Renato Hanley on 06-29-2025 Mucus Ql (Urine sed) 0 SEEN /hpf [facility] Neutrophil percentageOrdered By: Renato Hanley on 06-29-2025 Neutrophils/100 WBC (Bld) 66.6 % 47-70 [facility] Nitrite Test strip Ql (U)Ord ered By: Renato Hanley on 06-29-2025 Nitrite Ql (U) Negative Negative [facility] Nucleated red blood cell per centageOrdered By: Renato Hanley on 06-29-2025 Nucleated RBC/100 WBC (Bld) [Ratio] 0 % 0-5 [facility] Platelet countOrdered By: Mojgan Hanley on 06-29-2025 Platelets (Bld) [#/Vol] 311 10*3/uL 150-450 [facility] Potassium measurement (mass/ volume)Ordered By: Renato Hanley on 06-29-2025 Potassium (Unsp spec) [Mass/Vol] 4.4 mmol/L 3.3-5.1 [facility] Protein Test strip Ql (U)Ord ered By: Renato Hanley on 06-29-2025 Protein Ql (U) Negative Negative [facility] RBC Auto (Bld) [#/Vol]Ordere d By: Renato Hanley on 06-29-2025 RBC (Bld) [#/Vol] 3.79 10*6/uL Low 4.2-5.4 [facility] Serum creatinine measurement (mass/volume)Ordered By: Renato Hanley on 06-29-2025 Creatinine [Mass/Vol] 1.01 mg/dL 0.70-1.20 [facility] Serum globulin measurementOr dered By: Renato Hanley on 06-29-2025 Globulin (S) [Mass/Vol] 2.5 g/dL 2.2-4.2 [facility] Serum glucose measurement (m ass/volume)Ordered By: Renato Hanley on 06-29-2025 Glucose [Mass/Vol] 97 mg/dL 70-99 [facility] Serum or plasma alanine tse otransferase (ALT) measurementOrdered By: Renato Hanley on 06-29-2025 ALT [Catalytic activity/Vol] 16 U/L <35 [facility] Serum or plasma albumin ross urement (mass/volume)Ordered By: Renato Hanley on 06-29-2025 Albumin [Mass/Vol] 4.1 g/dL 3.5-5.0 [facility] Serum or plasma alkaline aleks sphatase measurementOrdered By: Renato Hanley on 06-29-2025 ALP [Catalytic activity/Vol] 113 U/L High 35-104 [facility] Serum or plasma calcium ross urement (mass/volume)Ordered By: Renato Hanley on 06-29-2025 Calcium [Mass/Vol] 9.4 mg/dL 7.6-11.0 [facility] Serum or plasma urea nitroge n measurement (mass/volume)Ordered By: Renato Hanley on 06-29-2025 Urea nitrogen [Mass/Vol] 17 mg/dL 4-19 [facility] Sodium levelOrdered By: Earl Hanley on 06-29-2025 Sodium [Moles/Vol] 138 mmol/L 133-145 [facility] Squamous epithelial cells de tection in urine sediment by light microscopyOrdered By: Renato Hanley on 06-29-2025 Epithelial cells.squamous LM Ql (Urine sed) 0-5 SEEN /hpf 5- [facility] TSH DL <= 0.005 mIU/L QnOrde red By: Renato Hanley on 06-29-2025 TSH Qn 5.840 uIU/mL High 0.300-4.200 [facility] Thyroid Stim Hormone (TSH)on 06-29-2025 TSH 5.840 uIU/mL High 0.300-4.200 [facility] Comment on above: Performed By: #### L 500.3400, L501.9520, L501.2450, L500.2500, L501.5200 ####[facility] [address] [place], [address] Total proteinOrdered By: Ricardo Hanley on 06-29-2025 Protein [Mass/Vol] 6.5 g/dL 5.9-8.4 [facility] Transitional cells detection in urine sediment by light microscopyOrdered By: Renato Hanley on 06-29-2025 Transitional cells LM Ql (Urine sed) 0-5 SEEN /hpf 0-5 [facility] Urinalysis, Completeon 06-29 BACTERIA 1+ /hpf Normal None Seen [facility] Comment on above: Order Comment: CLEAN CATCH Performed By: #### L 400.0001 #### [facility] Laboratory [address] [place], [address] EPI,SQUAMOUS 0-5 SEEN Normal 5-10 [facility] Comment on above: Order Comment: CLEAN CATCH Performed By: #### L 400.0001 #### [facility] Laboratory [address] [place], [address] EPI,TRANSITION 0-5 SEEN Normal 0-5 [facility] Comment on above: Order Comment: CLEAN CATCH Performed By: #### L 400.0001 #### [facility] Laboratory [address] [place], [address] RBC 0-5 SEEN Normal 0-5 [facility] Comment on above: Order Comment: CLEAN CATCH Performed By: #### L 400.0001 #### [facility] Laboratory [address] [place], [address] WBC 0-5 SEEN Normal 0-5 [facility] Comment on above: Order Comment: CLEAN CATCH Performed By: #### L 400.0001 #### [facility] Laboratory [address] [place], [address] Mucus Ql (Urine sed) 0 SEEN Normal [facility] Comment on above: Order Comment: CLEAN CATCH Performed By: #### L 400.0001 #### [facility] Laboratory [address] [place], [address] Urine clarityOrdered By: Ricardo Hanley on 06-29-2025 Clarity (U) Clear Clear [facility] Urine color determinationOrd ered By: Renato Hanley on 06-29-2025 Color (U) Yellow Yellow [facility] Urine glucose detectionOrder ed By: Renato Hanley on 06-29-2025 Glucose Ql (U) Normal mg/dl Normal [facility] Urine leukocyte esterase det ection by dipstickOrdered By: Renato Hanley on 06-29-2025 Leukocyte esterase Test strip Ql (U) 100 /ul High Negative [facility] Urine pHOrdered By: Renato goncalves on 06-29-2025 pH (U) 6.5 [pH] 5.0 - 8.0 [facility] Urine sediment bacteria coun t by microscopy (number/high power field)Ordered By: Renato Hanley on 06-29-2025 Bacteria LM.HPF (Urine sed) [#/Area] 1 /[HPF] None Seen [facility] Urine specific gravity measu rementOrdered By: Renato Hanley on 06-29-2025 Specific gravity (U) [Rel density] 1.010 1.002-1.030 [facility] Urine urobilinogen measureme ntOrdered By: Renato Hanley on 06-29-2025 Urobilinogen Ql (U) Normal mg/dl Normal [facility] White blood cell (WBC) count Ordered By: Renato Hanley on 06-29-2025 WBC (Bld) [#/Vol] 6.8 10*3/uL 4.4-11.0 [facility] White blood cell countOrdere d By: Renato Hanley on 06-29-2025 White blood cell count 0-5 SEEN /hpf 0-5 [facility] CNPNon 06-25-2025 CNPN Normal [facility] Absolute lymphocyte countOrd ered By: Geovanni Sorto on 06-23-2025 Lymphocytes Auto (Unsp spec) [#/Vol] 1.25 10*3/uL 0.83-4.51 [facility] Absolute neutrophil countOrd ered By: Geovanni Sorto on 06-23-2025 Neutrophils (Bld) [#/Vol] 4.7 10*3/uL 2.0-7.7 [facility] Anion gap in Serum or Plasma Ordered By: Geovanni Sorto on 06-23-2025 Anion gap [Moles/Vol] 8 mmol/L 5-15 [facility] Automated lymphocyte count a s percentage of total leukocytesOrdered By: Geovanni Sorto on 06-23-2025 Lymphocytes/100 WBC Auto (Unsp spec) 17.9 % Low 19-41 [facility] BUN/creatinine ratioOrdered By: Geovanni Sorto on 06-23-2025 Urea nitrogen/Creatinine [Mass ratio] 14.5 mg/mg - [facility] Basic Metabolic Profile (BMP )on 06-23-2025 BUN/CRE 14.5 RATIO Normal 06-21 [facility] Comment on above: Performed By: #### L 100.0100, L500.2500 ####[facility] [address] [place], [address] Calcium [Mass/Vol] 8.8 mg/dL Normal 7.6-11.0 [facility] Comment on above: Performed By: #### L 100.0100, L500.2500 ####[facility] [address] [place], [address] Chloride [Moles/Vol] 99 mmol/L Normal 98-108 [facility] Comment on above: Performed By: #### L 100.0100, L500.2500 ####[facility] [address] [place], [address] CO2 [Moles/Vol] 28.0 mmol/L Normal 21.0-32.0 [facility] Comment on above: Performed By: #### L 100.0100, L500.2500 ####[facility] [address] [place], [address] Creatinine [Mass/Vol] 1.04 mg/dL Normal 0.70-1.20 [facility] Comment on above: Performed By: #### L 100.0100, L500.2500 ####[facility] [address] [place], [address] ECRCL 53.99 ml/min Normal 50-250 [facility] Comment on above: Performed By: #### L 100.0100, L500.2500 ####[facility] [address] [place], [address] GAP 8 Normal 5-15 [facility] Comment on above: Performed By: #### L 100.0100, L500.2500 ####[facility] [address] [place], [address] GFR/1.73 sq M.predicted among non-blacks MDRD (S/P/Bld) [Vol rate/Area] 63 mL/min/{1.73_m2} Normal >60 [facility] Comment on above: Result Comment: mL/m in/1.73m2 CKD-EPI Creatinine Equation (2020) Performed By: #### L 100.0100, L500.2500 ####[facility] [address] [place], [address] Glucose [Mass/Vol] 92 mg/dL Normal 70-99 [facility] Comment on above: Performed By: #### L 100.0100, L500.2500 ####[facility] [address] [place], [address] Potassium [Moles/Vol] 3.5 mmol/L Normal 3.3-5.1 [facility] Comment on above: Performed By: #### L 100.0100, L500.2500 ####[facility] [address] [place], [address] Sodium [Moles/Vol] 135 mmol/L Normal 133-145 [facility] Comment on above: Performed By: #### L 100.0100, L500.2500 ####[facility] [address] [place], [address] Urea nitrogen [Mass/Vol] 15 mg/dL Normal 4-19 [facility] Comment on above: Performed By: #### L 100.0100, L500.2500 ####[facility] [address] [place], [address] Basophil percentageOrdered B y: Geovanni Sorto on 06-23-2025 Basophils/100 WBC (Bld) 0.3 % 0-1 [facility] Brain/Head without Contrasto n 06-23-2025 Brain/Head without Contrast [facility] Imaging Services [address] [place], [place] [address] Brain/Head without Contrast MR#: [id number] Acct: [id number] Name: ALLIE LYNN Rep #: [id number] : 1970 F 55 From: Manish June MD PCP: Dr. Ifeoma Davis MD Status: REG ER Study: Brain/Head without Contrast Date of Exam: 06/03 10/27 Exam# [id number] Ordering Dr: Geovanni Sorto DO PROCEDURE: CT [...] luminal narrowing along the distal right ICA cavernous/supraclinoi d segments, unchanged. NONCONTRAST CT HEAD: No acute intracranial hemorrhage, extra-axial collection, mass effect or evidence of acute infarct. Ventricles and subarachnoid spaces are normal in size. Absent venetie ocular lenses. Intact skull base and calvarium. [...] or high-grade stenosis. No aneurysm. Reading Location: [id number] CC: Dr. Geovanni Sorto DO; Dr. Ifeoma Davis MD County Assessor: Signed Normal [facility] CBC W/Diff, Automatedon 06-03 Absolute Lymph 1.25 X10 3/uL Normal 0.83-4.51 [facility] Comment on above: Performed By: #### L 100.0100, L500.2500 ####[facility] [address] [place], [address] Absolute Neut 4.7 X10 3/uL Normal 2.0-7.7 [facility] Comment on above: Performed By: #### L 100.0100, L500.2500 ####[facility] [address] [place], [address] Basophils/100 WBC (Bld) 0.3 % Normal 0-1 [facility] Comment on above: Performed By: #### L 100.0100, L500.2500 ####[facility] [address] [place], [address] Eosinophils/100 WBC (Bld) 2.4 % Normal 0-5 [facility] Comment on above: Performed By: #### L 100.0100, L500.2500 ####[facility] [address] [place], [address] Erythrocyte distribution width (RBC) [Ratio] 13.2 % Normal 11.6-14.6 [facility] Comment on above: Performed By: #### L 100.0100, L500.2500 ####[facility] [address] [place], [address] Hematocrit (Bld) [Volume fraction] 31.8 % Low 37-47 [facility] Comment on above: Performed By: #### L 100.0100, L500.2500 ####[facility] [address] [place], [address] Hemoglobin (Bld) [Mass/Vol] 10.4 g/dL Low 12.0-15.0 [facility] Comment on above: Performed By: #### L 100.0100, L500.2500 ####[facility] [address] [place], [address] IG% 0.300 Normal 0.0-0.9 [facility] Comment on above: Result Comment: IG% - Immature Granulocytes (promyelocytes, myelocytes and metamyelocytes) > 1% indicates that a LEFT SHIFT is Present. Performed By: #### L 100.0100, L500.2500 ####[facility] [address] [place], [address] Lymphocytes/100 WBC (Bld) 17.9 % Low 19-41 [facility] Comment on above: Performed By: #### L 100.0100, L500.2500 ####[facility] [address] [place], [address] MCH (RBC) [Entitic mass] 29.7 pg Normal 27.0-32.0 [facility] Comment on above: Performed By: #### L 100.0100, L500.2500 ####[facility] [address] [place], [address] MCHC (RBC) [Mass/Vol] 32.7 g/dL Normal 32-36 [facility] Comment on above: Performed By: #### L 100.0100, L500.2500 ####[facility] [address] [place], [address] MCV (RBC) [Entitic vol] 90.9 fL Normal 81-99 [facility] Comment on above: Performed By: #### L 100.0100, L500.2500 ####[facility] [address] [place], [address] Monocytes/100 WBC (Bld) 11.9 % High 0-10 [facility] Comment on above: Performed By: #### L 100.0100, L500.2500 ####[facility] [address] [place], [address] Neutrophils/100 WBC (Bld) 67.2 % Normal 47-70 [facility] Comment on above: Performed By: #### L 100.0100, L500.2500 ####[facility] [address] [place], [address] Nucleated RBC (Bld) [#/Vol] 0 10*3/uL Normal 0-5 [facility] Comment on above: Performed By: #### L 100.0100, L500.2500 ####[facility] [address] [place], [address] Platelet mean volume (Bld) [Entitic vol] 10.3 fL Normal 6.2-12.0 [facility] Comment on above: Performed By: #### L 100.0100, L500.2500 ####[facility] [address] [place], [address] Platelets (Bld) [#/Vol] 274 10*3/uL Normal 150-450 [facility] Comment on above: Performed By: #### L 100.0100, L500.2500 ####[facility] [address] [place], [address] RBC (Bld) [#/Vol] 3.50 10*6/uL Low 4.2-5.4 [facility] Comment on above: Performed By: #### L 100.0100, L500.2500 ####[facility] [address] [place], [address] RDW SD 43.8 fl Normal 35.1-43.9 [facility] Comment on above: Performed By: #### L 100.0100, L500.2500 ####[facility] [address] [place], [address] WBC (Bld) [#/Vol] 7.0 10*3/uL Normal 4.4-11.0 [facility] Comment on above: Performed By: #### L 100.0100, L500.2500 ####[facility] [address] [place], [address] CTA Head AND Neck W/ Contras ton 06-23-2025 CTA Head AND Neck W/ Contrast [facility] Imaging Services [address] [place] [address] CTA Head AND Neck W/ Contrast MR#: [id number] Acct: [id number] Name: ALLIE LYNN Rep #: [id number] : 1970 F 55 From: Manish June MD PCP: Dr. Ifeoma Davis MD Status: [facility] ER Study: CTA Head AND Neck W/ Contrast Date of Exam: Exam# [id number] Ordering Dr: Geovanni Sorto DO PROCEDURE: CT [...] luminal narrowing along the distal right ICA cavernous/supraclinoi d segments, unchanged. NONCONTRAST CT HEAD: No acute intracranial hemorrhage, extra-axial collection, mass effect or evidence of acute infarct. Ventricles and subarachnoid spaces are normal in size. Absent venetie ocular lenses. Intact skull base and calvarium. [...] or high-grade stenosis. No aneurysm. Reading Location: [id number] CC: Dr. Geovanni Sorto DO; Dr. Ifeoma Davis MD County Assessor: Signed Normal [facility] Carbon dioxide, total [Moles /volume] in Central venous bloodOrdered By: Geovanni Sorto on 06-23-2025 CO2 [Moles/Vol] 28.0 mmol/L 21.0-32.0 [facility] Chloride assayOrdered By: Jeffrey Sorto on 06-23-2025 Chloride [Moles/Vol] 99 mmol/L 98-108 [facility] Emergency Department Summary on 06-23-2025 Emergency Department Summary [facility] Medical Records Department [address] [place] [address] Emergency Department Summary 06/23/25 MR#: [id number] Acct: [id number] Name: ALLIE LYNN Rep #: [id number] : 1970 55 From: Geovanni Sorto DO [...] intact Psych: Cooperative, appropriate mood and affect [facility] Medical History (Updated 06/23/25 @ 20:[address] Geovanni Sorto DO) Wears glasses Depression Anxiety High cholesterol [...] tab PO QDAY HTN 12/09/24 Unknown History mg-hydrochlorothiazid e 12.5 mg tablet magnesium 200 mg tablet 200 mg PO QDAY SUPPLEMENT 12/09/24 Unknown History zolpidem 5 mg tablet 5 mg PO QHS PRN sleep 12/09/24 Unk nown History fluticasone propionate 50 2 spray intranasal QDAY ALLERGIES 03/10/25 Unknown History mcg/actuation nasal spray,suspension oxycodone-acetaminoph en 5 mg-325 0.5 - 1 tab PO TID PRN pain Unknown History mg tablet cyclobenzaprine 10 mg tablet 10 mg PO HS MUSCLE SPASM 06/04/25 Unknown History Lactobacillus 25 billion 1 cap PO DAILY SUPPLMENT 06/11/25 Unknown History cell-Bifido 25 billion [id number] capsule cevimeline 30 mg capsule 1 cap [...] bitartrate (Fro (more content not included)... Normal [facility] Eosinophil percentageOrdered By: Geovanni Sorto on 06-23-2025 Eosinophils/100 WBC (Bld) 2.4 % 0-5 [facility] Erythrocyte distribution wid th ratioOrdered By: Geovanni Sorto on 06-23-2025 Erythrocyte distribution width (RBC) [Ratio] 13.2 % 11.6-14.6 [facility] Erythrocyte distribution wid th standard deviationOrdered By: Geovanni Mcghee on 06-23-2025 Erythrocyte distribution width (RBC) [Ratio] 43.8 fl 35.1-43.9 [facility] Glomerular filtration rate ( GFR) estimation/1.73 sq m using serum, plasma, or whole bOrdered By: Geovanni Sorto on 06-23-2025 GFR/1.73 sq M.predicted among non-blacks MDRD (S/P/Bld) [Vol rate/Area] 63 mL/min/{1.73_m2} >60 [facility] Comment on above: mL/min/1.73m2 CKD-EP I Creatinine Equation (2020) Hematocrit Auto (Bld) [Volum e fraction]Ordered By: Geovanni Sorto on 06-23-2025 Hematocrit (Bld) [Volume fraction] 31.8 % Low 37-47 [facility] Hemoglobin measurementOrdere d By: Geovanni Sorto on 06-23-2025 Hemoglobin (Bld) [Mass/Vol] 10.4 g/dL Low 12.0-15.0 [facility] Immature granulocytes/100 WB C Auto (Bld)Ordered By: Geovanni Sorto on 06-23-2025 Immature granulocytes/100 WBC (Bld) 0.300 % 0.0-0.9 [facility] Comment on above: IG% - Immature Granu locytes (promyelocytes, myelocytes and metamyelocytes) > 1% indicates that a LEFT SHIFT is Present. MCV (mean corpuscular volume ) determinationOrdered By: Geovanni Sorto on 06-23-2025 MCV (RBC) [Entitic vol] 90.9 fL 81-99 [facility] Mean corpuscular hemoglobin (MCH) determinationOrdered By: Geovanni Sorto on 06-23-2025 MCH (RBC) [Entitic mass] 29.7 pg 27.0-32.0 [facility] Mean corpuscular hemoglobin concentration (MCHC) determinationOrdered By: Geovanni Sorto on 06-23-2025 MCHC (RBC) [Mass/Vol] 32.7 g/dL 32-36 [facility] Mean platelet volume determi nationOrdered By: Geovanin Sorto on 06-23-2025 Platelet mean volume (Bld) [Entitic vol] 10.3 fL 6.2-12.0 [facility] Monocyte percentageOrdered B y: Geovanni Sorto on 06-23-2025 Monocytes/100 WBC (Bld) 11.9 % High 0-10 [facility] Neutrophil percentageOrdered By: Geovanni Sorto on 06-23-2025 Neutrophils/100 WBC (Bld) 67.2 % 47-70 [facility] Nucleated red blood cell per centageOrdered By: Geovanni Sorto on 06-23-2025 Nucleated RBC/100 WBC (Bld) [Ratio] 0 % 0-5 [facility] Platelet countOrdered By: Jeffrey Sorto on 06-23-2025 Platelets (Bld) [#/Vol] 274 10*3/uL 150-450 [facility] Potassium measurement (mass/ volume)Ordered By: Geovanni Sorto on 06-23-2025 Potassium (Unsp spec) [Mass/Vol] 3.5 mmol/L 3.3-5.1 [facility] RBC Auto (Bld) [#/Vol]Ordere d By: Geovanni Sorto on 06-23-2025 RBC (Bld) [#/Vol] 3.50 10*6/uL Low 4.2-5.4 [facility] Serum creatinine measurement (mass/volume)Ordered By: Geovanni Sorto on 06-23-2025 Creatinine [Mass/Vol] 1.04 mg/dL 0.70-1.20 [facility] Serum glucose measurement (m ass/volume)Ordered By: Geovanni Sorto on 06-23-2025 Glucose [Mass/Vol] 92 mg/dL 70-99 [facility] Serum or plasma calcium ross urement (mass/volume)Ordered By: Geovanni Mcghee on 06-23-2025 Calcium [Mass/Vol] 8.8 mg/dL 7.6-11.0 [facility] Serum or plasma urea nitroge n measurement (mass/volume)Ordered By: Geovanni Sorto on 06-23-2025 Urea nitrogen [Mass/Vol] 15 mg/dL 4-19 [facility] Sodium levelOrdered By: Lee Sorto on 06-23-2025 Sodium [Moles/Vol] 135 mmol/L 133-145 [facility] White blood cell (WBC) count Ordered By: Geovanni Sorto on 06-23-2025 WBC (Bld) [#/Vol] 7.0 10*3/uL 4.4-11.0 [facility] Extremity Lower without Cont raon 06-21-2025 Extremity Lower without Contra [facility] Imaging Services [address] [place] [address] Extremity Lower without Contra MR#: [id number] Acct: [id number] Name: ALLIE LYNN Rep #: [id number] : 1970 F 55 From: Grant Lora MD PCP: Dr. Ifeoma Davis MD Status: REG CLI Study: Extremity Lower without Contra Date of Exam: 1 Exam# [id number] Ordering Dr: Phillip Pozo DO PROCEDURE: EXTREMITY [...] Ifeoma Davis MD; Dr. Phillip Pozo DO County Assessor: Signed Normal [facility] Fructosamineon 06-19-2025 FRUCTOSAMINE 212 umol/L Normal 0-285 [facility] Comment on above: Result Comment: Publ ished reference interval for apparently healthy subjects between age 20 and 60 is 205 - 285 umol/L and in a poorly controlled diabetic population is 228 - 563 umol/L with a mean of 396 umol/L. Performed at: [address] [id number] Director Instrumentation: Regis Carballo PhD, Phone: [phone] Performed By: #### L 500.2500, L300.4310, L3400.0100, L501.5200, L501.9985, L300.3900, L100.0100 ####[facility] [address] [place], [address] MRSA/SAID NASAL SCREENon MRSA+SAID SCRN Reason for Exam: PREOP MRSA MRSA Negative S. AUREUS S. aureus Negative Normal [facility] Comment on above: Performed By: #### B TSPAT, M100.651 ####[facility] [address] [place], [address] CNPNon 06-18-2025 CNPN Normal [facility] Basic Metabolic Profile (BMP )on 06-17-2025 BUN/CRE 16.4 RATIO Normal 06-21 [facility] Comment on above: Performed By: #### L 500.2500, L300.4310, L3400.0100, L501.5200, L501.9985, L300.3900, L100.0100 ####[facility] [address] [place], [address] Calcium [Mass/Vol] 9.5 mg/dL Normal 7.6-11.0 [facility] Comment on above: Performed By: #### L 500.2500, L300.4310, L3400.0100, L501.5200, L501.9985, L300.3900, L100.0100 ####[facility] [address] [place], [address] Chloride [Moles/Vol] 101 mmol/L Normal 98-108 [facility] Comment on above: Performed By: #### L 500.2500, L300.4310, L3400.0100, L501.5200, L501.9985, L300.3900, L100.0100 ####[facility] [address] [place], [address] CO2 [Moles/Vol] 27.7 mmol/L Normal 21.0-32.0 [facility] Comment on above: Performed By: #### L 500.2500, L300.4310, L3400.0100, L501.5200, L501.9985, L300.3900, L100.0100 ####[facility] [address] [place], [address] Creatinine [Mass/Vol] 0.87 mg/dL Normal 0.70-1.20 [facility] Comment on above: Performed By: #### L 500.2500, L300.4310, L3400.0100, L501.5200, L501.9985, L300.3900, L100.0100 ####[facility] [address] [place], [address] GAP 11 Normal 5-15 [facility] Comment on above: Performed By: #### L 500.2500, L300.4310, L3400.0100, L501.5200, L501.9985, L300.3900, L100.0100 ####[facility] [address] [place], [address] GFR/1.73 sq M.predicted among non-blacks MDRD (S/P/Bld) [Vol rate/Area] 78 mL/min/{1.73_m2} Normal >60 [facility] Comment on above: Result Comment: mL/m in/1.73m2 CKD-EPI Creatinine Equation (2020) Performed By: #### L 500.2500, L300.4310, L3400.0100, L501.5200, L501.9985, L300.3900, L100.0100 ####[facility] [address] [place], [address] Glucose [Mass/Vol] 89 mg/dL Normal 70-99 [facility] Comment on above: Performed By: #### L 500.2500, L300.4310, L3400.0100, L501.5200, L501.9985, L300.3900, L100.0100 ####[facility] [address] [place], [address] Potassium [Moles/Vol] 4.3 mmol/L Normal 3.3-5.1 [facility] Comment on above: Performed By: #### L 500.2500, L300.4310, L3400.0100, L501.5200, L501.9985, L300.3900, L100.0100 ####[facility] [address] [place], [address] Sodium [Moles/Vol] 140 mmol/L Normal 133-145 [facility] Comment on above: Performed By: #### L 500.2500, L300.4310, L3400.0100, L501.5200, L501.9985, L300.3900, L100.0100 ####[facility] [address] [place], [address] Urea nitrogen [Mass/Vol] 14 mg/dL Normal 4-19 [facility] Comment on above: Performed By: #### L 500.2500, L300.4310, L3400.0100, L501.5200, L501.9985, L300.3900, L100.0100 ####[facility] [address] [place], [address] Brain/Head without Contrasto n 06-17-2025 Brain/Head without Contrast [facility] Imaging Services [address] [place] [address] Brain/Head without Contrast MR#: [id number] Acct: [id number] Name: ALLIE LYNN ANN Rep #: [id number] : 1970 F 55 From: Manish June MD PCP: Dr. Ifeoma Davis MD Status: REG ER Study: Brain/Head without Contrast Date of Exam: 06/02 02/24 Exam# [id number] Ordering Dr: Patti Piña DO PROCEDURE: CT [...] subarachnoid spaces are normal in size. Absent venetie ocular lenses. Intact skull base and calvarium. [...] moderate stenosis of the distal right ICA cavernous/supraclinoi d segment. Findings communicated with provider Patti Piña 06/17/2025 at 6 p.m. GENERAL CLEANER. Reading Location: [facility] CC: Dr. Ifeoma Davis MD; Dr. Patti Piña, County Assessor: Signed Normal [facility] CBC W/Diff, Automatedon 06-02 Absolute Lymph 0.96 X10 3/uL Normal 0.83-4.51 [facility] Comment on above: Performed By: #### L 500.2500, L300.4310, L3400.0100, L501.5200, L501.9985, L300.3900, L100.0100 ####[facility] [address] [place], [address] Absolute Neut 5.1 X10 3/uL Normal 2.0-7.7 [facility] Comment on above: Performed By: #### L 500.2500, L300.4310, L3400.0100, L501.5200, L501.9985, L300.3900, L100.0100 ####[facility] [address] [place], [address] Basophils/100 WBC (Bld) 0.6 % Normal 0-1 [facility] Comment on above: Performed By: #### L 500.2500, L300.4310, L3400.0100, L501.5200, L501.9985, L300.3900, L100.0100 ####[facility] [address] [place], [address] Eosinophils/100 WBC (Bld) 1.9 % Normal 0-5 [facility] Comment on above: Performed By: #### L 500.2500, L300.4310, L3400.0100, L501.5200, L501.9985, L300.3900, L100.0100 ####[facility] [address] [place], [address] Erythrocyte distribution width (RBC) [Ratio] 13.2 % Normal 11.6-14.6 [facility] Comment on above: Performed By: #### L 500.2500, L300.4310, L3400.0100, L501.5200, L501.9985, L300.3900, L100.0100 ####[facility] [address] [place], [address] Hematocrit (Bld) [Volume fraction] 38.6 % Normal 37-47 [facility] Comment on above: Performed By: #### L 500.2500, L300.4310, L3400.0100, L501.5200, L501.9985, L300.3900, L100.0100 ####[facility] [address] [place], [address] Hemoglobin (Bld) [Mass/Vol] 12.3 g/dL Normal 12.0-15.0 [facility] Comment on above: Performed By: #### L 500.2500, L300.4310, L3400.0100, L501.5200, L501.9985, L300.3900, L100.0100 ####[facility] [address] [place], [address] IG% 0.400 Normal 0.0-0.9 [facility] Comment on above: Result Comment: IG% - Immature Granulocytes (promyelocytes, myelocytes and metamyelocytes) > 1% indicates that a LEFT SHIFT is Present. Performed By: #### L 500.2500, L300.4310, L3400.0100, L501.5200, L501.9985, L300.3900, L100.0100 ####[facility] [address] [place], [address] Lymphocytes/100 WBC (Bld) 13.9 % Low 19-41 [facility] Comment on above: Performed By: #### L 500.2500, L300.4310, L3400.0100, L501.5200, L501.9985, L300.3900, L100.0100 ####[facility] [address] [place], [address] MCH (RBC) [Entitic mass] 29.6 pg Normal 27.0-32.0 [facility] Comment on above: Performed By: #### L 500.2500, L300.4310, L3400.0100, L501.5200, L501.9985, L300.3900, L100.0100 ####[facility] [address] [place], [address] MCHC (RBC) [Mass/Vol] 31.9 g/dL Low 32-36 [facility] Comment on above: Performed By: #### L 500.2500, L300.4310, L3400.0100, L501.5200, L501.9985, L300.3900, L100.0100 ####[facility] [address] [place], [address] MCV (RBC) [Entitic vol] 92.8 fL Normal 81-99 [facility] Comment on above: Performed By: #### L 500.2500, L300.4310, L3400.0100, L501.5200, L501.9985, L300.3900, L100.0100 ####[facility] [address] [place], [address] Monocytes/100 WBC (Bld) 9.4 % Normal 0-10 [facility] Comment on above: Performed By: #### L 500.2500, L300.4310, L3400.0100, L501.5200, L501.9985, L300.3900, L100.0100 ####[facility] [address] [place], [address] Neutrophils/100 WBC (Bld) 73.8 % High 47-70 [facility] Comment on above: Performed By: #### L 500.2500, L300.4310, L3400.0100, L501.5200, L501.9985, L300.3900, L100.0100 ####[facility] [address] [place], [address] Nucleated RBC (Bld) [#/Vol] 0 10*3/uL Normal 0-5 [facility] Comment on above: Performed By: #### L 500.2500, L300.4310, L3400.0100, L501.5200, L501.9985, L300.3900, L100.0100 ####[facility] [address] [place], [address] Platelet mean volume (Bld) [Entitic vol] 10.5 fL Normal 6.2-12.0 [facility] Comment on above: Performed By: #### L 500.2500, L300.4310, L3400.0100, L501.5200, L501.9985, L300.3900, L100.0100 ####[facility] [address] [place], [address] Platelets (Bld) [#/Vol] 332 10*3/uL Normal 150-450 [facility] Comment on above: Performed By: #### L 500.2500, L300.4310, L3400.0100, L501.5200, L501.9985, L300.3900, L100.0100 ####[facility] [address] [place], [address] RBC (Bld) [#/Vol] 4.16 10*6/uL Low 4.2-5.4 [facility] Comment on above: Performed By: #### L 500.2500, L300.4310, L3400.0100, L501.5200, L501.9985, L300.3900, L100.0100 ####[facility] [address] [place], [address] RDW SD 45.3 fl High 35.1-43.9 [facility] Comment on above: Performed By: #### L 500.2500, L300.4310, L3400.0100, L501.5200, L501.9985, L300.3900, L100.0100 ####[facility] [address] [place], [address] WBC (Bld) [#/Vol] 6.9 10*3/uL Normal 4.4-11.0 [facility] Comment on above: Performed By: #### L 500.2500, L300.4310, L3400.0100, L501.5200, L501.9985, L300.3900, L100.0100 ####[facility] [address] [place], [address] CTA Head AND Neck W/ Contras ton 06-17-2025 CTA Head AND Neck W/ Contrast [facility] Imaging Services [address] [place] [address] CTA Head AND Neck W/ Contrast MR#: [id number] Acct: [id number] Name: ALLIE LYNN Rep #: [id number] : 1970 F 55 From: Manish June MD PCP: Dr. Ifeoma Davis MD Status: [facility] ER Study: CTA Head AND Neck W/ Contrast Date of Exam: Exam# [id number] Ordering Dr: Patti Piña DO PROCEDURE: CT [...] subarachnoid spaces are normal in size. Absent venetie ocular lenses. Intact skull base and calvarium. [...] moderate stenosis of the distal right ICA cavernous/supraclinoi d segment. Findings communicated with provider Patti Piña 06/17/2025 at 6 p.m. GENERAL CLEANER. Reading Location: [id number] CC: Dr. Ifeoma Davis MD; Dr. Patti Piña DO County Assessor: Signed Normal [facility] Emergency Department Summary on 06-17-2025 Emergency Department Summary [facility] Medical Records Department [address] [place] [address] Emergency Department Summary 06/17/25 MR#: [id number] Acct: [id number] Name: ALLIE LYNN Rep #: [id number] : 1970 55 From: Patti Piña DO [...] too high risk to have the surgery. [facility] Medical History (Updated 06/17/25 @ 19:32 by [...] tab PO QDAY HTN 12/09/24 Unknown History mg-hydrochlorothiazid e 12.5 mg tablet magnesium 200 mg tablet 200 mg PO QDAY SUPPLEMENT 12/09/24 Unknown History zolpidem 5 mg tablet 5 mg PO QHS PRN sleep 12/09/24 Unk nown History fluticasone propionate 50 2 spray intranasal QDAY ALLERGIES 03/10/25 Unknown History mcg/actuation nasal spray,suspension oxycodone-acetaminoph en 5 mg-325 0.5 - 1 tab PO TID PRN pain Unknown History mg tablet cyclobenzaprine 10 mg tablet 10 mg PO HS MUSCLE SPASM 06/04/25 Unknown History Lactobacillus 25 billion 1 cap PO DAILY SUPPLMENT 06/11/25 Unknown History cell-Bifido 25 billion vzqq-XFR-nsjxt capsule cevimeline 30 mg capsule 1 cap [...] cancer Surgi (more content not included)... Normal [facility] Hemoglobin A1con 06-17-2025 HbA1c (Bld) [Mass fraction] 5.6 % Normal <=5.6 [facility] Comment on above: Result Comment: Norm al < 5.7 % Prediabetic 5.7 - 6.4 % Diabetic >or= 6.5 % Please note range changes. Performed By: #### L 500.2500, L300.4310, L3400.0100, L501.5200, L501.9985, L300.3900, L100.0100 ####[facility] [address] [facility] [place], [address] MR/PATNANYon 06-17-2025 MR/PAT.[facility] Medical Records Department [address] [place] [address] PAT - Anesthesia 06/17/25 1528 MR#: [id number] Acct: [id number] Name: ALLIE LYNN Rep #: [id number] : 1970 55 From: Rusty Guerrero MD PCP: Dr. Ifeoma Davis MD Status:PRE IN Y Race: C Location: [facility] Pre-Assessment Diagnosis/Proposed Procedure Planned Operative Procedure(s): (L) ERAS, Left Total Hip Replacement Robotic Arm Assisted Anesthesia History Anesthesia History - government relations director: Anesthesia History - government relations director Hx Hospitalization No 06/11/25 13:38 Any Problems [...] take am of surgery PONV PONV - government relations director: PONV - government relations director Female Yes 06/11/25 13:38 HX of Motion [...] 06/03/25 15:26 Respiratory Assessment Respiratory Assessment - government relations director: Respiratory Tract Infection Hx - government relations director Hx Respiratory Tract Infection No 06/11/25 13:38 STOP Sleep Apnea STOP Sleep Apnea - government relations director: STOP Sleep Apnea - government relations director Hx Hypertension Yes 06/11/25 13:38 Hx Sleep [...] Tobacco Use History Tobacco Use History - government relations director: Tobacco Use History - government relations director Tobacco Use Smoking Status Never smoker 06/11/25 13:38 Hx Tobacco Use No 06/11/25 13:38 Years Smoking Packs Smoked per Day Smoking Cessation Date was within the last 15 years Hx Smoking Cessation Date Hx Smoking Cessation Counseling Hematologic Medial History Hematologic Hx - government relations director: 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 confused, unrespo /Reproductio n History /Reproductiv e History - government relations director: /Reproductiv e Hx- government relations director Hx Now No 06/11/25 13:38 Gestational Age (in weeks): EDC: Hx Hx Para Hx Section SAB No 06/11/25 13:38 PFS Medical History (Updated 06/11/25 @ 13:57 by [...] tablet,delayed 81 (more content not included)... Normal [facility] Magnesiumon 06-17-2025 Magnesium [Mass/Vol] 2.1 mg/dL Normal 1.5-2.2 [facility] Comment on above: Performed By: #### L 500.2500, L300.4310, L3400.0100, L501.5200, L501.9985, L300.3900, L100.0100 ####[facility] [address] [place], [address] Partial Thromboplast Timeon 06-17-2025 aPTT Coag (Bld) [Time] 24.0 s Low 24.1-36.2 [facility] Comment on above: Performed By: #### L 500.2500, L300.4310, L3400.0100, L501.5200, L501.9985, L300.3900, L100.0100 ####[facility] [address] [place], [place], [id number] Prothrombin Time w/INRon INR Coag (PPP) [Relative time] 0.9 {INR} Normal [facility] Comment on above: Performed By: #### L 500.2500, L300.4310, L3400.0100, L501.5200, L501.9985, L300.3900, L100.0100 ####[facility] [address] [place], [place], [id number] PT Coag (PPP) [Time] 12.5 s Normal 11.7-14.9 [facility] Comment on above: Performed By: #### L 500.2500, L300.4310, L3400.0100, L501.5200, L501.9985, L300.3900, L100.0100 ####[facility] [address] [place], [place], [id number] Type AND Screen - PAT ONLYon 06-17-2025 Ab SCREEN GEL Negative Normal [facility] Comment on above: Order Comment: Reaso n for Laboratory Test [id number] REPLACEMENT Performed By: #### B TSPAT, M100.651 ####[facility] [address] [place], [address] CNPNon 06-14-2025 CNPN Normal [facility] CNPNon 06-10-2025 CNPN Normal [facility] HIP, UNI W/ Pelvis 2-3 Views on 06-04-2025 HIP, UNI W/ Pelvis 2-3 Views [facility] Imaging Services [address] [place] [address] HIP, UNI W/ Pelvis 2-3 Views MR#: [id number] Acct: [id number] Name: ALLIE LYNN Rep #: [id number] : 1970 F 55 From: Don Sampson PCP: Dr. Ifeoma Davis MD Status: DEP AMB Study: HIP, UNI W/ Pelvis 2-3 Views Date of Exam: 11/24 Exam# [id number] Ordering Dr: Phillip Pozo DO PROCEDURE: HIP, [...] fracture or dislocation is seen. Reading Location: [place] [address] CC: Dr. Ifeoma Davis MD; Dr. Phillip Pozo DO County Assessor: Signed Normal [facility] Orthopedic Visit Reporton Orthopedic Visit Report [facility] [address] [place] [address] OFFICE VISIT Date of Service: 06/04/25 MR#: [id number] Acct: [id number] Name: ALLIE LYNN Rep #: [id number] : 1970 Provider: Dr. 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 Accompanied by: Friend Is patient [...] tab PO QDAY 12/09/24 06/04/25 Hi story mg-hydrochlorothiazid e 12.5 mg tablet magnesium 200 mg tablet 200 mg PO QDAY 12/09/24 06/04/25 H istory omega-3 720 do-ubd-bct-fish cap PO 12/09/24 06/04/25 History oil-vit D3 25 mcg capsule vitamin B12 500 mcg-folic acid 400 1 tab PO QDAY 12/09/24 06/04/25 History mcg tablet zolpidem 5 mg tablet 5 mg PO QHS PRN 12/09/24 06/04/25 History fluticasone propionate 50 2 spray intranasal QDAY 03/10/25 1 History mcg/actuation nasal spray,suspension gabapentin 100 mg capsule 100 mg PO QHS 03/10/25 06/04/25 Hi story oxycodone-acetaminoph en 5 mg-325 0.5 - 1 tab PO [...] decisions made by me, Dr. Phillip Pozo, 06/04/25 0912. Part of today???s visit was documented by [ ], acting as scribe. ALLIE LYNN is a 55 year old F here [...] joint abou (more content not included)... Normal [facility] Orthopedic Visit Reporton Orthopedic Visit Report [facility] [address] [place] [address] OFFICE VISIT Date of Service: 06/03/25 MR#: [id number] Acct: [id number] Name: ALLIE LYNN ANN Rep #: [id number] : 1970 Provider: Dr. Michael Cameron MD Age/Sex: 55/F Location[place] [facility] Status: Signed Intake Vital Signs [...] tab PO QDAY 12/09/24 06/03/25 Hi story mg-hydrochlorothiazid e 12.5 mg tablet magnesium 200 mg tablet 200 mg PO QDAY 12/09/24 06/03/25 H istory omega-3 720 zs-ufn-qma-fish cap PO 12/09/24 06/03/25 History oil-vit D3 25 mcg capsule vitamin B12 500 mcg-folic acid 400 1 tab PO QDAY 12/09/24 06/03/25 History mcg tablet zolpidem 5 mg tablet 5 mg PO QHS PRN 12/09/24 06/03/25 History fluticasone propionate 50 2 spray intranasal QDAY 03/10/25 1 History mcg/actuation nasal spray,suspension gabapentin 100 mg capsule 100 mg PO QHS 03/10/25 06/03/25 Hi story oxycodone-acetaminoph en 5 mg-325 0.5 - 1 tab PO [...] acting as scribe. ALLIE LYNN is a 55 year old F here [...] leg. Doi (more content not included)... Normal [facility] CNOVon 05-27-2025 CNOV Normal [facility] Emergency Department Summary on 05-27-2025 Emergency Department Summary [facility] Medical Records Department [address] [place] [address] Emergency Department Summary 05/27/25 MR#: [id number] Acct: [id number] Name: ALLIE LYNN Rep #: [id number] : 1970 55 From: Juan Manuel Turpin [...] facial trauma. Prior similar symptoms: No Recent Illness/Hospitalizati on: No PFSH PFSH Medical History Hip arthritis Degenerative scoliosis [...] tab PO QDAY 12/09/24 Unknown His tory mg-hydrochlorothiazid e 12.5 mg tablet magnesium 200 mg tablet 200 mg PO QDAY 12/09/24 Unknown Hi story omega-3 720 kv-vfa-qnn-fish cap PO 12/09/24 Unknown History oil-vit D3 [...] mg PO QHS 03/10/25 Unknown His tory oxycodone-acetaminoph en 5 mg-325 0.5 - 1 tab PO [...] Respiratory/Chest Respiratory/Ch (more content not included)... Normal [facility] Lipid 1996 panelon 5 Cholesterol [Mass/Vol] 144 mg/dL Normal <200 Cl [facility] [facility] Comment on above: Order Comment: Speci men Type: BLOOD SPECIMENOrdering Facility: [facility] Address: [address] [place] [address] Result Comment: <200 mg/dL, Desirable 200-239 mg/dL, Borderline high>239 mg/dL, High Performed By: #### 2 4331-1 ####[facility] LABCLIA [id number] [address] OF [facility] Cholesterol in HDL [Mass/Vol] 53 mg/dL Normal >39 [facility] Comment on above: Order Comment: Altafemily eaton Type: BLOOD SPECIMENOrdering Facility: [facility] Address: [address] [place] [address] Result Comment: 40-5 9 mg/dL, Acceptable>59 mg/dL, High: Negative risk factor for coronary heart disease<40 mg/dL, Low: Positive risk factor for coronary heart disease Performed By: #### 2 4331-1 ####[facility] LABCLIA [id number] [address] STATES OF [facility] Cholesterol in LDL [Mass/Vol] 73 mg/dL Normal <100 [facility] Comment on above: Order Comment: Brandan angelito Type: BLOOD SPECIMENOrdering Facility: [facility] Address: [address] [place] [address] Result Comment: <100 mg/dL, Optimal 100-129 mg/dL, Near optimal/above optimal 130-159 mg/dL, Borderline high 160-189 mg/dL, High>189 mg/dL, Very highSecondary prevention optimal LDL Cholesterol levels are recommended to be <70 mg/dLLDL cholesterol is calculated using the Miranda-NIH equation. Performed By: #### 2 4331-1 ####[facility] LABCLIA [id number] [address] OF [place] Cholesterol in LDL/Cholesterol in HDL [Mass ratio] 1.38 {ratio} Normal <2.54 [facility] Comment on above: Order Comment: Altafemily eaton Type: BLOOD SPECIMENOrdering Facility: [facility] Address: [address] [place] [address] Result Comment: Estella hoskins:1. National Cholesterol Education Program ATP III Guideline At-A-Glance Quick Desk Reference: National Heart, Lung, and Blood [place]. National Institutes of Health. 2001: NIH Publication No. 01-3305.2. An International Atherosclerosis Society position paper: global recommendations for the management of dyslipidemia: executive summary, Atherosclerosis. 2014: 232(2):410-413. Performed By: #### 2 4331-1 ####[facility] LABCLIA [id number] [address] [place] [address] [place] Cholesterol in VLDL [Mass/Vol] 14 mg/dL Normal <30 [facility] Comment on above: Order Comment: Speci men Type: BLOOD SPECIMENOrdering Facility: [facility] Address: [address] [place] [address] Performed By: #### 2 4331-1 ####[facility] LABCLIA [id number] [address] [place] [address] [place] Cholesterol non HDL [Mass/Vol] 91 mg/dL Normal <130 [facility] Comment on above: Order Comment: Speci men Type: BLOOD SPECIMENOrdering Facility: [facility] Address: [address] [place] [address] Result Comment: <130 mg/dL, Optimal 130-159 mg/dL, Near optimal/above optimal 160-189 mg/dL, Borderline high 190-219 mg/dL, High>219 mg/dL, Very highSecondary prevention optimal non HDL Cholesterol levels are recommended to be <100 mg/dL Performed By: #### 2 4331-1 ####[facility] LABIA [id number] [address] [place] [address] [place] Cholesterol.total/Choles terol in HDL [Mass ratio] 2.72 {ratio} Normal <5.10 [facility] Comment on above: Order Comment: Speci men Type: BLOOD SPECIMENOrdering Facility: [facility] Address: [address] [place], [place] [address] Performed By: #### 2 4331-1 ####[facility] LABCLIA [id number] [address] [place] [address] [place] FASTING TIME 13 hrs Normal [facility] Comment on above: Order Comment: Speci men Type: BLOOD SPECIMENOrdering Facility: [facility] Address: [address] [place], [place] [address] Performed By: #### 2 4331-1 ####[facility] LABCLIA [id number] [address] [address] [place] Triglyceride [Mass/Vol] 96 mg/dL Normal <150 C [facility] Comment on above: Order Comment: Speci men Type: BLOOD SPECIMENOrdering Facility: [facility] Address: [address] [place] [address] Result Comment: <150 mg/dL, Normal 150-199 mg/dL, Borderline high 200-499 mg/dL, High>499 mg/dL, Very high Performed By: #### 2 4331-1 ####[facility] LABCLIA [id number] [place] [address] [place] CNPNon 05-17-2025 CNPN Normal [facility] Magnetic resonance imaging r eportOrdered By: Brittaney Barth on 05-10-2025 Study report [facility] Imaging Services [address], [place] [id number] Spine Lumbar (Routine) MR#: [id number] Acct: [id number] Name: ALLIE LYNN Rep #: [id number] : 1970 F 55 From: Shaan Barth MD PCP: Dr. Ifeoma Davis MD Status: REG C WALLY Study:Spine Lumbar (Routine) Date of Exam: 05/07/25 Exam# [id number] Ordering Dr: Shauna Cameron MD PROCEDURE: SPINE [...] L1-2 with associated central stenosis. Reading Location: [facility] CC: Dr. Michael Cameron MD; Dr. Ifeoma Davis MD ~ County Assessor: Signed [facility] Spine Lumbar (Routine)on Spine Lumbar (Routine) [facility] Imaging Services [address] [place] [address] Spine Lumbar (Routine) MR#: [id number] Acct: [id number] Name: ALLIE LYNN Rep #: [id number] : 1970 F 55 From: Brittaney stacy MD PCP: Dr. Ifeoma Davis MD Status: REG CLI Study: Spine Lumbar (Routine) Date of Exam: 05/07/25 Exam# [id number] Ordering Dr: Michael Cameron MD PROCEDURE: SPINE [...] L1-2 with associated central stenosis. Reading Location: [facility] CC: Dr. Michael Cameron MD; Dr. Ifeoma Davis MD County Assessor: Signed [facility] CNPNon 04-28-2025 CNPN Normal [facility] CNOVon 04-22-2025 CNOV Normal [facility] CNPNon 04-22-2025 CNPN Normal [facility] L/S Spine Bending Flex/[place] 04-16-2025 L/S Spine Bending Flex/Ext [facility] Imaging Services [address] [place] [id number] L/S Spine Bending Flex/Ext MR#: [id number] Acct: [id number] Name: ALLIE LYNN ANN Rep #: [id number] : 1970 F 54 From: Alan Perales MD PCP: Dr. Ifeoma Davis MD Status: DEP AMB Study: L/S Spine Bending Flex/Ext Date of Exam: 04/16 Exam# [id number] Ordering Dr: Sarah Pino PROCEDURE: L/S SPINE [...] pronounced at L3-4. Multilevel spondylolisthesis. Reading Location: [facility] CC: KENA Perkins; Dr. Ifeoma Davis MD County Assessor: Signed Normal [facility] Orthopedic Visit Reporton Orthopedic Visit Report [facility] [address] [place] [address] OFFICE VISIT Date of Service: 04/16/25 MR#: [id number] Acct: [id number] Name: ALLIE LYNN ANN Rep #: [id number] : 1970 Provider: Dr. Michael Cameron MD Age/Sex: 54/F Location[place] [facility] Status: Signed Intake Vital Signs [...] tab PO QDAY 12/09/24 04/16/25 Hi story mg-hydrochlorothiazid e 12.5 mg tablet magnesium 200 mg tablet 200 mg PO QDAY 12/09/24 04/16/25 H istory omega-3 720 cx-xff-bre-fish cap PO 12/09/24 04/16/25 History oil-vit D3 25 mcg capsule vitamin B12 500 mcg-folic acid 400 1 tab PO QDAY 12/09/24 04/16/25 History mcg tablet zolpidem 5 mg tablet 5 mg PO QHS PRN 12/09/24 04/16/25 History fluticasone propionate 50 2 spray intranasal QDAY 03/10/25 0 04/16/25 History mcg/actuation nasal spray,suspension gabapentin 100 mg capsule 100 mg PO QHS 03/10/25 04/16/25 Hi story oxycodone-acetaminoph en 5 mg-325 0.5 - 1 tab PO [...] by me, Dr. Michael Cameron MD 04/16/25 0980. Part of today???s visit was documented by [...] she had gotten in the past did equipment associate her temporary relief. She has became more of a fall risk due to the pain and stiffness. She does have weakness in her left leg and primarily uses the right leg to lead especially when going up steps. Dr. Betancourt did prescribe her Percocet yesterday for rosanne (more content not included)... Normal [facility] CNOVon 04-11-2025 CNOV Normal [facility] CNPNon 04-03-2025 CNPN Normal [facility] CNPNon 03-31-2025 CNPN Normal [facility] CNPNon 03-30-2025 CNPN Normal [facility] CNPNon 03-26-2025 CNPN Normal [facility] ANES POSTPROC EVALon 025 ANES POSTPROC EVAL Normal [facility] ANES PRE-OPon 03-25-2025 ANES PRE-OP Normal [facility] OPERATIVE NOon 03-25-2025 OPERATIVE NO Normal [facility] Basic metabolic 2000 panelOr dered By: Mahsa Aponte on 03-24-2025 Anion gap [Moles/Vol] 12 mmol/L 8 - 15 mmol/L [facility] Calcium [Mass/Vol] 9.6 mg/dL 8.5 - 10. 2 mg/dL [facility] Chloride [Moles/Vol] 99 mmol/L 98 - 10 7 mmol/L [facility] CO2 [Moles/Vol] 25 mmol/L 22 - 30 mmol/L [facility] Creatinine [Mass/Vol] 0.99 mg/dL High 0.58 - 0.96 mg/dL [facility] GFR/1.73 sq M.predicted among non-blacks MDRD (S/P/Bld) [Vol rate/Area] 67 mL/min/{1.73_m2} - PINF [facility] Comment on above: Estimated Glomerular Filtration Rate [...] [Mass/Vol] 94 mg/dL 74 - 99 mg/dL [facility] Comment on above: The Chinese Diabete s Association (ADA) provides guidance for [...] Standards of Medical Care in Diabetes 2016, Chinese Diabetes Association. Diabetes Care. 2016.39(Suppl 1). Interpretation and review of laboratory results Abnormal [facility] Potassium [Moles/Vol] 4.1 mmol/L 3.7 - 5.1 mmol/L [facility] Sodium [Moles/Vol] 136 mmol/L 136 - 144 mmol/L [facility] Urea nitrogen [Mass/Vol] 20 mg/dL 7 - 21 mg/d L [facility] Basic metabolic 2000 panelon 03-24-2025 Anion gap [Moles/Vol] 12 mmol/L Normal 8-15 [facility] Comment on above: Order Comment: Speci men Type: BLOOD SPECIMENOrdering Facility: [facility] Address: [address] [place] [address] Performed By: #### 2 4321-2 ####[facility]ENTERWTXLIA [id number] [place] [address] [place] Calcium [Mass/Vol] 9.6 mg/dL Normal 8.5-10.2 [facility] Comment on above: Order Comment: Speci men Type: BLOOD SPECIMENOrdering Facility: [facility] Address: [address] [place], [place] [address] Performed By: #### 2 4321-2 ####[facility] MILLTOWNCLIA [id number] [place] [address] [place] Chloride [Moles/Vol] 99 mmol/L Normal 98-107 [facility] Comment on above: Order Comment: Speci men Type: BLOOD SPECIMENOrdering Facility: [facility] Address: [address] [place] [address] Performed By: #### 2 4321-2 ####[facility] [id number] [place] [address] [place] CO2 [Moles/Vol] 25 mmol/L Normal 22-30 [facility] Comment on above: Order Comment: Speci men Type: BLOOD SPECIMENOrdering Facility: [facility] Address: [address] [place] [address] Performed By: #### 2 4321-2 ####[facility] [id number] [place] [address] [place] Creatinine [Mass/Vol] 0.99 mg/dL High 0.58-0.96 [facility] Comment on above: Order Comment: Speci men Type: BLOOD SPECIMENOrdering Facility: [facility] Address: [address] [place] [address] Performed By: #### 2 4321-2 ####[facility] [id number] [place] [address] [place] eGFRcr SerPlBld CKD-EPI 2020 67 mL/min/1.73m??? Normal >=60 [facility] Comment on above: Order Comment: Speci men Type: BLOOD SPECIMENOrdering Facility: [facility] Address: [address] [place] [address] Result Comment: Zaria mated Glomerular Filtration Rate [...] actual GFR. Performed By: #### 2 4321-2 ####[facility] MILLTOWNCLIA [id number] [place] [address] [place] Glucose [Mass/Vol] 94 mg/dL Normal 74-99 [facility] Comment on above: Order Comment: Speci men Type: BLOOD SPECIMENOrdering Facility: [facility] Address: [address] [place] [address] Result Comment: The Chinese Diabetes Association (ADA) provides guidance for cutoff values for fasting glucose and random glucose. The ADA defines fasting as no caloric intake for at least 8 hours. Fasting plasma glucose results between 100 to 125 mg/dL indicate increased risk for diabetes (prediabetes).Fasting plasma glucose results greater than or equal to 126 mg/dL meet the criteria for diagnosis of diabetes. In the absence of unequivocal hyperglycemia, results should be confirmed by repeat testing. In a patient with classic symptoms of hyperglycemia or hyperglycemic crisis, random plasma glucose results greater than or equal to 200 mg/dL meet the criteria for diagnosis of diabetes.Reference: Standards of Medical Care in Diabetes 2016, Chinese Diabetes Association. Diabetes Care. 2016.39(Suppl 1). Performed By: #### 2 4321-2 ####[facility] [id number] [place] [address] [place] Potassium [Moles/Vol] 4.1 mmol/L Normal 3.7-5.1 [facility] Comment on above: Order Comment: Speci men Type: BLOOD SPECIMENOrdering Facility: [facility] Address: [address] [address] Performed By: #### 2 4321-2 ####[facility]ENTERWNCLIA [id number] [place] [address] [place] Sodium [Moles/Vol] 136 mmol/L Normal 136-144 [facility] Comment on above: Order Comment: Speci men Type: BLOOD SPECIMENOrdering Facility: [facility] Address: [address] [place], [place] [address] Performed By: #### 2 4321-2 ####[facility] CENTERWNCLIA [id number] [place] [address] [place] Urea nitrogen [Mass/Vol] 20 mg/dL Normal 7-21 [facility] Comment on above: Order Comment: Speci men Type: BLOOD SPECIMENOrdering Facility: [facility] Address: [address] [place] [address] Performed By: #### 2 4321-2 ####[facility] [id number] [place] [address] [place] CBC W Auto Differential pane l (Bld)on 03-24-2025 Basophils (Bld) [#/Vol] 0.05 10*3/uL [facility] Basophils/100 WBC (Bld) 0.6 % [facility] Differential cell count method Nom (Bld) Auto [facility] Eosinophils (Bld) [#/Vol] 0.23 10*3/uL [facility] Eosinophils/100 WBC (Bld) 2.9 % [facility] Erythrocyte distribution width (RBC) [Ratio] 12.7 % 11.5 - 15.0 % [facility] Hematocrit (Bld) [Volume fraction] 36.8 % 36.0 - 46.0 % [facility] Hemoglobin (Bld) [Mass/Vol] 12.1 g/dL 11.5 - 15.5 g/dL [facility] Immature granulocytes (Bld) [#/Vol] 0.04 10*3/uL [facility] Immature granulocytes/100 WBC (Bld) 0.5 % [facility] Lymphocytes (Bld) [#/Vol] 1.31 10*3/uL [facility] Lymphocytes/100 WBC (Bld) 16.7 % [facility] MCH (RBC) [Entitic mass] 29.9 pg 26. 0 - 34.0 pg [facility] MCHC (RBC) [Mass/Vol] 32.9 g/dL 30.5 - 36.0 g/dL [facility] MCV (RBC) [Entitic vol] 90.9 fL 80.0 - 100.0 fL [facility] Monocytes (Bld) [#/Vol] 0.85 10*3/uL [facility] Monocytes/100 WBC (Bld) 10.8 % [facility] Neutrophils (Bld) [#/Vol] 5.38 10*3/uL [facility] Neutrophils/100 WBC (Bld) 68.5 % [facility] Nucleated RBC (Bld) [#/Vol] NINF [facility] Nucleated RBC/100 WBC (Bld) [Ratio] 0 % /100 WBC [facility] Platelet mean volume (Bld) [Entitic vol] 9.8 fL 9.0 - 12.7 fL [facility] Platelets (Bld) [#/Vol] 375 10*3/uL [facility] RBC (Bld) [#/Vol] 4.05 10*6/uL 3.90 - 5.2 0 m/uL [facility] WBC (Bld) [#/Vol] 7.86 10*3/uL [facility] Basophils (Bld) [#/Vol] 0.05 10*3/uL Normal <0.11 [facility] Comment on above: Order Comment: Speci men Type: BLOOD SPECIMENOrdering Facility: [facility] Address: [address] [place] [address] Performed By: #### 5 7021-8 ####[facility] [id number] [place] [address] [place] Basophils/100 WBC (Bld) 0.6 % Normal [facility] Comment on above: Order Comment: Speci men Type: BLOOD SPECIMENOrdering Facility: [facility] Address: [address] [place] [address] Performed By: #### 5 7021-8 ####[facility] [id number] [place] [address] [place] Differential cell count method Nom (Bld) Auto Normal [facility] Comment on above: Order Comment: Speci men Type: BLOOD SPECIMENOrdering Facility: [facility] Address: [address] [place] [address] Performed By: #### 5 7021-8 ####[facility]WNCL[facility] [id number] [place] [address] [place] Eosinophils (Bld) [#/Vol] 0.23 10*3/uL Normal <0.46 [facility] Comment on above: Order Comment: Speci men Type: BLOOD SPECIMENOrdering Facility: [facility] Address: [address] [place] [address] Performed By: #### 5 7021-8 ####[facility]ITALLIA [id number] [place] [address] [place] Eosinophils/100 WBC (Bld) 2.9 % Normal [facility] Comment on above: Order Comment: Speci men Type: BLOOD SPECIMENOrdering Facility: [facility] Address: [address] [place] [address] Performed By: #### 5 7021-8 ####[facility] [id number] [place] [address] [place] Erythrocyte distribution width (RBC) [Ratio] 12.7 % Normal 11.5-15.0 [facility] Comment on above: Order Comment: Speci men Type: BLOOD SPECIMENOrdering Facility: [facility] Address: [address] [place] [address] Performed By: #### 5 7021-8 ####[facility] [id number] [place] [address] [place] Hematocrit (Bld) [Volume fraction] 36.8 % Normal 36.0-46.0 [facility] Comment on above: Order Comment: Speci men Type: BLOOD SPECIMENOrdering Facility: [facility] Address: [address] [place] [address] Performed By: #### 5 7021-8 ####[facility]CL[facility] [id number] [place] [address] [place] Hemoglobin (Bld) [Mass/Vol] 12.1 g/dL Normal 11.5-15.5 [facility] Comment on above: Order Comment: Speci men Type: BLOOD SPECIMENOrdering Facility: [facility] Address: [address] [place] [address] Performed By: #### 5 7021-8 ####[facility] [id number] [place] [address] [place] Immature granulocytes (Bld) [#/Vol] 0.04 10*3/uL Normal <0.10 [facility] Comment on above: Order Comment: Speci men Type: BLOOD SPECIMENOrdering Facility: [facility] Address: [address] [place] [address] Performed By: #### 5 7021-8 ####[facility] [id number] [place] [address] [place] Immature granulocytes/100 WBC (Bld) 0.5 % Normal [facility] Comment on above: Order Comment: Speci men Type: BLOOD SPECIMENOrdering Facility: [facility] Address: [address] [place] [address] Performed By: #### 5 7021-8 ####[facility] [id number] [place] [address] [place] Lymphocytes (Bld) [#/Vol] 1.31 10*3/uL Normal 1.00-4.00 [facility] Comment on above: Order Comment: Speci men Type: BLOOD SPECIMENOrdering Facility: [facility] Address: [address] [place], [place] [address] Performed By: #### 5 7021-8 ####[facility] [id number] [place] [address] [place] Lymphocytes/100 WBC (Bld) 16.7 % Normal [facility] Comment on above: Order Comment: Speci men Type: BLOOD SPECIMENOrdering Facility: [facility] Address: [address] [place] [address] Performed By: #### 5 7021-8 ####[facility]LINE[facility] [id number] [address] MCH (RBC) [Entitic mass] 29.9 pg Normal 26.0-34.0 [facility] Comment on above: Order Comment: Speci men Type: BLOOD SPECIMENOrdering Facility: [facility] Address: [address] [place] [address] Performed By: #### 5 7021-8 ####[facility] [id number] [place] [address] [place] MCHC (RBC) [Mass/Vol] 32.9 g/dL Normal 30.5-36.0 [facility] Comment on above: Order Comment: Speci men Type: BLOOD SPECIMENOrdering Facility: [facility] Address: [address] [place] [address] Performed By: #### 5 7021-8 ####[facility] [id number] [place] [address] [place] MCV (RBC) [Entitic vol] 90.9 fL Normal 80.0-100.0 C [facility] Comment on above: Order Comment: Speci men Type: BLOOD SPECIMENOrdering Facility: [facility] Address: [address] [place] [address] Performed By: #### 5 7021-8 ####[facility] [id number] [place] [address] [place] [facility] [place] Monocytes (Bld) [#/Vol] 0.85 10*3/uL Normal <0.87 [facility] Comment on above: Order Comment: Speci men Type: BLOOD SPECIMENOrdering Facility: [facility] Address: [address] [place] [address] Performed By: #### 5 7021-8 ####[facility] JAIDENWNCLIA [id number] [place] [address] [place] Monocytes/100 WBC (Bld) 10.8 % Normal C [facility] Comment on above: Order Comment: Speci men Type: BLOOD SPECIMENOrdering Facility: [facility] Address: [address] [place] [address] Performed By: #### 5 7021-8 ####[facility]ES[facility]CL[facility] [id number] [place] [address] [place] Neutrophils (Bld) [#/Vol] 5.38 10*3/uL Normal 1.45-7.50 [facility] Comment on above: Order Comment: Speci men Type: BLOOD SPECIMENOrdering Facility: [facility] Address: [address] [place] [address] Performed By: #### 5 7021-8 ####[facility] [id number] [place] [address] [place] Neutrophils/100 WBC (Bld) 68.5 % Normal [facility] Comment on above: Order Comment: Speci men Type: BLOOD SPECIMENOrdering Facility: [facility] Address: [address] [place] [address] Performed By: #### 5 7021-8 ####[facility] [id number] [place] [address] [place] Nucleated RBC (Bld) [#/Vol] 10*3/uL Normal <0.01 [facility] Comment on above: Order Comment: Speci men Type: BLOOD SPECIMENOrdering Facility: [facility] Address: [address] [place] [address] Performed By: #### 5 7021-8 ####[facility]ESNCLIA [id number] [place] [address] [place] Nucleated RBC/100 WBC (Bld) [Ratio] 0.0 /100 WBC Normal [facility] Comment on above: Order Comment: Speci men Type: BLOOD SPECIMENOrdering Facility: [facility] Address: [address] [place] [address] Performed By: #### 5 7021-8 ####[facility] [id number] [place] [address] [place] Platelet mean volume (Bld) [Entitic vol] 9.8 fL Normal 9.0-12.7 [facility] Comment on above: Order Comment: Speci men Type: BLOOD SPECIMENOrdering Facility: [facility] Address: [address] [place] [address] Performed By: #### 5 7021-8 ####[facility] [id number] [place] [address] [place] Platelets (Bld) [#/Vol] 375 10*3/uL Normal 150-400 [facility] Comment on above: Order Comment: Speci men Type: BLOOD SPECIMENOrdering Facility: [facility] Address: [address] [place] [address] Performed By: #### 5 7021-8 ####[facility] [id number] [place] [address] [place] RBC (Bld) [#/Vol] 4.05 10*6/uL Normal 3.90-5.20 [facility] Comment on above: Order Comment: Speci men Type: BLOOD SPECIMENOrdering Facility: [facility] [facility] Address: [address] [place] [address] Performed By: #### 5 7021-8 ####[facility] [id number] [place] [address] [place] WBC (Bld) [#/Vol] 7.86 10*3/uL Normal 3.70-11.00 [facility] Comment on above: Order Comment: Speci men Type: BLOOD SPECIMENOrdering Facility: [facility] Address: [facility] [place] [id number] Performed By: #### 5 7021-8 ####[facility] [id number] [place] [id number] [place] CNPNon 03-24-2025 CNPN Normal [facility] HISTORY PHYSICALon HISTORY PHYSICAL Normal [facility] CNPNon 03-23-2025 CNPN Normal [facility] FUNDUS PHOTOS OU (BOTH EYES) on 03-23-2025 [facility] No Panel Informationon 03-23 Radiology Study observation (narrative) [facility] OCT OPTIC NERVE CIRRUS OU (B OTH EYES)on 03-23-2025 [facility] PACHYMETRY OU (BOTH EYES)on 03-23-2025 [facility] Radiology Study observation (narrative) [facility] SLIT LAMP PHOTOS OU (BOTH EY ES)on 03-23-2025 [facility] CNPTOUTREACHon 03-16-2025 CNPTOUTREACH Normal [facility] Lumbar Spine 2 or 3 Viewson 03-10-2025 Lumbar Spine 2 or 3 Views [facility] Imaging Services [address] [place], [place] [id number] Lumbar Spine 2 or 3 Views MR#: [id number] Acct: [id number] Name: ALLIE LYNN Rep #: [id number] : 1970 F 54 From: Alan Perales MD PCP: Dr. Ifeoma Davis MD Status: DEP AMB Study: Lumbar Spine 2 or 3 Views Date of Exam: Exam# [id number] Ordering Dr: Phillip Pozo DO PROCEDURE: LUMBAR SPINE 2 OR 3 VIEWS 03/10/2025 REASON FOR EXAM: CHRONIC BACK PAIN TECHNIQUE: LUMBAR SPINE 2 OR 3 VIEWS COMPARISON: None. FINDINGS: No evidence of acute fracture or dislocation. Levoscoliosis. Crzc-hq-uofgvmdv discogenic degenerative changes of the visualized spine. RAD/Lumbar Spine 2 or 3 Views IMPRESSION: Spondylosis. Levoscoliosis. Reading Location: [id number] CC: Dr. Ifeoma Davis MD; Dr. Phillip Pozo DO County Assessor: Signed Normal [facility] Orthopedic Visit Reporton Orthopedic Visit Report [facility] [address] [place] [address] [address] [place] [address] OFFICE VISIT Date of Service: 03/10/25 MR#: [id number] Acct: [id number] Name: ALLIE LYNN Rep #: [id number] : 1970 Provider: Dr. Phillip goldman DO Age/Sex: 54/F [place] [facility] [place] Status: Signed Intake Vital Signs [...] tab PO QDAY 12/09/24 03/10/25 Hi story mg-hydrochlorothiazid e 12.5 mg tablet magnesium 200 mg tablet 200 mg PO QDAY 12/09/24 03/10/25 H istory omega-3 720 nl-nfp-kxt-fish cap PO 12/09/24 03/10/25 History oil-vit D3 25 mcg capsule vitamin B12 500 mcg-folic acid 400 1 tab PO QDAY 12/09/24 03/10/25 History mcg tablet zolpidem 5 mg tablet 5 mg PO QHS PRN 12/09/24 03/10/25 History fluticasone propionate 50 2 spray intranasal QDAY 03/10/25 0 03/10/25 History mcg/actuation nasal spray,suspension gabapentin 100 mg capsule 100 mg PO QHS 03/10/25 03/10/25 Hi story oxycodone-acetaminoph en 5 mg-325 0.5 - 1 tab PO TID PRN pain 03/10/25 History mg tablet PFSH Medical History (Updated 03/10/25 @ 15:[address] Phillip Pozo, DO) History of trigger finger Fibromyalgia Restless [...] Dr. Betancourt. (more content not included)... Normal [facility] CNNURSEon 03-02-2025 CNNURSE Normal [facility] CNPNon 03-01-2025 CNPN Normal [facility] CNPNon 02-25-2025 CNPN Normal [facility] CNPNon 01-12-2025 CNPN Normal [facility] CNPNon 12-30-2024 CNPN Normal [facility] CNOVon 12-29-2024 CNOV Normal [facility] POLYSOMNOGRAM (PSG)on 2024 [facility] [address] [place] [address] [address], [place] [address] ; PSG Study Report Name: ALLIE LYNN Date of Study: 11/17/2024 [facility]#: [id number] Age: 54 (: 1970) ESS: 01/23 Neck [...] Desyrel Sleep procedure: PSG 4 or more [facility] ([id number]) Procedure: The study was attended continuously by a chemical engineering technologist. The monitored parameters included: left (E1-M2) [...] and 0.0% (0.0 minutes) above 55 mmHg. Tobin-Mendez/Periodi c Breathing was not present. Supplemental oxygen was [...] ICSD DIAGNOSIS: Obstructive Sleep Apnea Syndrome [G47.33] IMPRESSION/RECOMMENDA TIONS: 1. Moderate obstructive sleep apnea exacerbated to moderate supine sleep with AHI values of 18.9 and 21.8, respectively. Respirator (more content not included)... SLEEP LAB [facility] Orthopedic Visit Reporton Orthopedic Visit Report [facility] [address] [place] [address] OFFICE VISIT Date of Service: 12/09/24 MR#: [id number] Acct: [id number] Name: ALLIE LYNN ANN Rep #: [id number] : 1970 Provider: Dr. Phillip Pretty so, DO Age/Sex: 54/F [place] [facility] [place] Status: Signed Intake Vital Signs [...] tab PO QDAY 12/09/24 12/09/24 Hi story mg-hydrochlorothiazid e 12.5 mg tablet magnesium 200 mg tablet 200 mg PO QDAY 12/09/24 12/09/24 H istory omega-3 720 ln-occ-kjc-fish cap PO 12/09/24 12/09/24 History oil-vit D3 [...] Right Shoulde (more content not included)... Normal [facility] 12-07-2024 CNPN Normal [facility] 12-01-2024 CNPN Normal [facility] HIP, UNI W/ Pelvis 2-3 Views on 11-24-2024 HIP, UNI W/ Pelvis 2-3 Views [facility] Imaging Services [address] [place], [place] [id number] HIP, UNI W/ Pelvis 2-3 Views MR#: [id number] Acct: [id number] Name: ALLIE LYNN ANN Rep #: [id number] : 1970 F 54 From: Danie Salvador MD PCP: Dr. Ifeoma Davis MD Status: DEP AMB Study: HIP, UNI W/ Pelvis 2-3 Views Date of Exam: Exam# [id number] Ordering Dr: Allie Prakash PROCEDURE: HIP, UNI [...] central to lateral joint space narrowing near wumy-kn-xxho contact. Lateral acetabular osteophyte formation and large femoral head osteophytes with buttressing. Right hip mild to moderate appearing osteoarthrosis with iehv-ek-odksbmmo lateral joint space narrowing and small osteophyte formation. No fracture or dislocation identified. RAD/HIP, UNI W/ Pelvis 2-3 Views IMPRESSION: Eisr-kinlefv-joef-rig ht appearing osteoarthrosis as described above with associated appearing left downward pelvic tilt. Reading Location: [id number] CC: Allie Prakash; Dr. Ifeoma Davis MD County Assessor: Signed Normal [facility] Hip Min 2 Views (Portable)on 11-24-2024 Hip Min 2 Views (Portable) [facility] Imaging Services [address] [place], [place] [address] Hip Min 2 Views (Portable) MR#: [id number] Acct: [id number] Name: ALLIE LYNN Rep #: [id number] : 1970 F 54 From: Laya Tay PCP: Dr. Ifeoma Davis MD Status: REG CLI Study: Hip Min 2 Views (Portable) Date of Exam: 11/24 Exam# [id number] Ordering Dr: Allie Prakash PROCEDURE: HIP MIN [...] of the left groin region. Reading Location: [id number] CC: Allie Prakash; Dr. Ifeoma Davis MD County Assessor: Signed Normal [facility] CNPNon 11-20-2024 CNPN Normal [facility] Basic metabolic 2000 panelon 11-19-2024 Anion gap [Moles/Vol] 14 mmol/L Normal 8-15 [facility] Comment on above: Order Comment: Speci men Type: BLOOD SPECIMENOrdering Facility: [facility] Address: [address] [place] [address] Performed By: #### 2 4321-2 ####[facility] LABCLIA [id number] [place] [address] [place] Calcium [Mass/Vol] 9.7 mg/dL Normal 8.5-10.2 [facility] Comment on above: Order Comment: Speci men Type: BLOOD SPECIMENOrdering Facility: [facility] Address: [address] [place] [address] Performed By: #### 2 4321-2 ####[facility] LABCLIA [id number] [address] [address] [place] Chloride [Moles/Vol] 99 mmol/L Normal 98-107 [facility] Comment on above: Order Comment: Speci men Type: BLOOD SPECIMENOrdering Facility: [facility] Address: [address] [place] [address] Performed By: #### 2 4321-2 ####[facility] LABCLIA [id number] [place] [address] [place] CO2 [Moles/Vol] 27 mmol/L Normal 22-30 [facility] Comment on above: Order Comment: Speci men Type: BLOOD SPECIMENOrdering Facility: [facility] Address: [address] [place] [address] Performed By: #### 2 4321-2 ####[facility] LABCLIA [id number] [place] [address] [place] Creatinine [Mass/Vol] 0.95 mg/dL Normal 0.58-0.96 [facility] Comment on above: Order Comment: Speci men Type: BLOOD SPECIMENOrdering Facility: [facility] Address: [address] [place] [address] Performed By: #### 2 4321-2 ####[facility] LABCLIA [id number] [place] [id number] [place] Creatinine and Glomerular filtration rate.predicted panel (S/P/Bld) 71 mL/min/1.73m??? Normal >=60 [facility] Comment on above: Order Comment: Speci men Type: BLOOD SPECIMENOrdering Facility: [facility] Address: [address], [place] [address] Result Comment: Zaria mated Glomerular Filtration Rate [...] actual GFR. Performed By: #### 2 4321-2 ####[facility] LABIA [id number] [place] [id number] [place] Glucose [Mass/Vol] 73 mg/dL Low 74-99 [facility] Comment on above: Order Comment: Brandan eaton Type: BLOOD SPECIMENOrdering Facility: [facility] Address: [address] [place] [address] Result Comment: The [place] Diabetes Association (ADA) provides guidance for cutoff values for fasting glucose and random glucose. The ADA defines fasting as no caloric intake for at least 8 hours. Fasting plasma glucose results between 100 to 125 mg/dL indicate increased risk for diabetes (prediabetes).Fasting plasma glucose results greater than or equal to 126 mg/dL meet the criteria for diagnosis of diabetes. In the absence of unequivocal hyperglycemia, results should be confirmed by repeat testing. In a patient with classic symptoms of hyperglycemia or hyperglycemic crisis, random plasma glucose results greater than or equal to 200 mg/dL meet the criteria for diagnosis of diabetes.Reference: Standards of Medical Care in Diabetes 2016, [employer] Diabetes Association. Diabetes Care. 2016.39(Suppl 1). Performed By: #### 2 4321-2 ####[facility] LABIA [id number] [address] [address] [place] Potassium [Moles/Vol] 3.5 mmol/L Low 3.7-5.1 [facility] Comment on above: Order Comment: Brandan eaton Type: BLOOD SPECIMENOrdering Facility: [facility] Address: [address] [place] [address] Performed By: #### 2 4321-2 ####[facility] LABIA [id number] [address] [address] [place] Sodium [Moles/Vol] 140 mmol/L Normal 136-144 [facility] Comment on above: Order Comment: Speci men Type: BLOOD SPECIMENOrdering Facility: [facility] Address: [address] [place] [address] Performed By: #### 2 4321-2 ####[facility] LABCLIA [id number] [address] [place] Urea nitrogen [Mass/Vol] 12 mg/dL Normal 7-21 [facility] Comment on above: Order Comment: Speci men Type: BLOOD SPECIMENOrdering Facility: [facility] Address: [address] [place] [address] Performed By: #### 2 4321-2 ####[facility] LABCLIA [id number] [address] [place] CNOVon 11-19-2024 CNOV Normal [facility] CNOVon 11-17-2024 CNOV Office Visit (LDNESL ) ALLIE LYNN ([id number]) 1970 F LV Date Time Provider Department 11/17/24 9:00 PM SLEEP LAB LODI BED 1 LDNESL During your visit today, we recorded the following information about you: Referring Provider: KIMBERLEY AMBROCIO [[id number]] Allergies As of Date: 11/17/2024 Noted Allergy [...] See Comments Comments: Loss of conciousness VICODIN (HYDROCODONE-ACETAMIN OPHE*04/28/2012 9 - Itching Date Reviewed: 11/03/2024 Reviewed by: Janet Meza LPN - Fully Assessed Reason for Visit: Procedure [88] Visit Diagnoses:Snoring [R06.83] Excessive daytime sleepiness [G47.19] Non-restorative sleep [G47.8] PLMD (periodic limb movement disorder) [G47.61] Primary hypertension [I10] Order(s):POLYSOMNOGRA M (PSG) [5806634] Order #: [id number]. #:[id number] Prescriptions as of 01/05/2025 - meloxicam (MOBIC) [...] once daily. - CPAP/BIPAP/OTHER APAP 5-18 cmH2O [facility] - zolpidem (AMBIEN) 5 mg tablet Take [...] 1 capsule by mouth once daily. - lisinopril-hydroCHLOR Othiazide (ZESTORETIC) 10-12.5 mg per tablet Take 1 [...] ONCE DAILY. RINSE MOUTH AFTER USE. 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 Normal [facility] POLYSOMNOGRAM (PSG)/HOME SLE EP APNEA TEST (HSAT)on 11-17-2024 POLYSOMNOGRAM (PSG)/HOME SLEEP APNEA TEST (HSAT) Normal [facility] 25(OH)D3 [facility] 2024 25-hydroxyvitamin D3 [Mass/Vol] 42.9 ng/mL Normal 31.0-80.0 [facility] Comment on above: Order Comment: Speci men Type: BLOOD SPECIMENOrdering Facility: [facility] Address: [address] [place] [address] Result Comment: Clas sification of 25 [place] Vitamin D status:Deficiency/Insufficiency: < or = 30 ng/ml.Sufficiency/Optimal Levels: 31-80 ng/mLToxicity: > 100 ng/mL.Test performed by chemiluminescent immunoassay. Performed By: #### 1 989-3 ####[facility] LABCLIA [id number] [place] [address] [place] CBC W Auto Differential pane l (Bld)on 11-03-2024 Basophils (Bld) [#/Vol] 0.03 10*3/uL NINF [facility] Basophils/100 WBC (Bld) 0.6 % C [facility] Differential cell count method Nom (Bld) Auto [facility] Eosinophils (Bld) [#/Vol] 0.2 10*3/uL [facility] Eosinophils/100 WBC (Bld) 3.7 % [facility] Erythrocyte distribution width (RBC) [Ratio] 14 % 11.5 - 15.0 % [facility] Hematocrit (Bld) [Volume fraction] 37.9 % 36.0 - 46.0 % [facility] Hemoglobin (Bld) [Mass/Vol] 12 g/dL 11.5 - 15.5 g/dL [facility] Immature granulocytes (Bld) [#/Vol] [facility] Immature granulocytes/100 WBC (Bld) 0.2 % [facility] Lymphocytes (Bld) [#/Vol] 1.2 10*3/uL [facility] Lymphocytes/100 WBC (Bld) 22.2 % [facility] MCH (RBC) [Entitic mass] 29.3 pg 26. 0 - 34.0 pg [facility] MCHC (RBC) [Mass/Vol] 31.7 g/dL 30.5 - 36.0 g/dL [facility] MCV (RBC) [Entitic vol] 92.4 fL 80.0 - 100.0 fL [facility] Monocytes (Bld) [#/Vol] 0.65 10*3/uL [facility] Monocytes/100 WBC (Bld) 12 % C [facility] Neutrophils (Bld) [#/Vol] 3.31 10*3/uL [facility] Neutrophils/100 WBC (Bld) 61.3 % [facility] Nucleated RBC (Bld) [#/Vol] [facility] Nucleated RBC/100 WBC (Bld) [Ratio] 0 % /100 WBC [facility] Platelet mean volume (Bld) [Entitic vol] 11 fL 9.0 - 12.7 fL [facility] Platelets (Bld) [#/Vol] 334 10*3/uL [facility] RBC (Bld) [#/Vol] 4.1 10*6/uL 3.90 - 5.2 0 m/uL [facility] WBC (Bld) [#/Vol] 5.4 10*3/uL [facility] Basophils (Bld) [#/Vol] 0.03 10*3/uL Normal <0.11 [facility] Comment on above: Order Comment: Speci men Type: BLOOD SPECIMENOrdering Facility: [facility] Address: [address] [place] [address] Performed By: #### 5 7021-8 ####[facility]ORY[facility]IA [id number] [place] [address] [place] Basophils/100 WBC (Bld) 0.6 % Normal [facility] Comment on above: Order Comment: Speci men Type: BLOOD SPECIMENOrdering Facility: [facility] Address: [address] [place] [address] Performed By: #### 5 7021-8 ####[facility]ORYCLIA [id number] [place] [address] [place] Differential cell count method Nom (Bld) Auto Normal [facility] Comment on above: Order Comment: Speci men Type: BLOOD SPECIMENOrdering Facility: [facility] Address: [address] [place] [address] Performed By: #### 5 7021-8 ####[facility]ORYCLIA [id number] [place] [address] [place] Eosinophils (Bld) [#/Vol] 0.20 10*3/uL Normal <0.46 [facility] Comment on above: Order Comment: Speci men Type: BLOOD SPECIMENOrdering Facility: [facility] Address: [address] [place] [address] Performed By: #### 5 7021-8 ####[facility]ORYCLIA [id number] [address] [place] Eosinophils/100 WBC (Bld) 3.7 % Normal [facility] Comment on above: Order Comment: Speci men Type: BLOOD SPECIMENOrdering Facility: [facility] Address: [address] [place] [address] Performed By: #### 5 7021-8 ####[facility]ORYCLIA [id number] [address] Erythrocyte distribution width (RBC) [Ratio] 14.0 % Normal 11.5-15.0 [facility] Comment on above: Order Comment: Speci men Type: BLOOD SPECIMENOrdering Facility: [facility] Address: [address] [place] [address] Performed By: #### 5 7021-8 ####[facility] LABORATORYCLIA [id number] [address] [place] Hematocrit (Bld) [Volume fraction] 37.9 % Normal 36.0-46.0 [facility] Comment on above: Order Comment: Speci men Type: BLOOD SPECIMENOrdering Facility: [facility] Address: [address] [place] [address] Performed By: #### 5 7021-8 ####[facility] LABORATORYCLIA [id number] [address] [place] Hemoglobin (Bld) [Mass/Vol] 12.0 g/dL Normal 11.5-15.5 [facility] Comment on above: Order Comment: Speci men Type: BLOOD SPECIMENOrdering Facility: [facility] Address: [address] [place] [address] Performed By: #### 5 7021-8 ####[facility] LABORATORYCLIA [id number] [address] OF [place] Immature granulocytes (Bld) [#/Vol] 10*3/uL Normal <0.10 [facility] Comment on above: Order Comment: Speci men Type: BLOOD SPECIMENOrdering Facility: [facility] Address: [address] [place] [address] Performed By: #### 5 7021-8 ####[facility] LABORATORYCLIA [id number] [address] OF [place] Immature granulocytes/100 WBC (Bld) 0.2 % Normal [facility] Comment on above: Order Comment: Speci men Type: BLOOD SPECIMENOrdering Facility: [facility] Address: [address] [place] [address] Performed By: #### 5 7021-8 ####[facility] LABORATORYCLIA [id number] [address] [place] Lymphocytes (Bld) [#/Vol] 1.20 10*3/uL Normal 1.00-4.00 [facility] Comment on above: Order Comment: Speci men Type: BLOOD SPECIMENOrdering Facility: [facility] Address: [address] [place] [address] Performed By: #### 5 7021-8 ####[facility] LABORATORYCLIA [id number] [address] OF [place] Lymphocytes/100 WBC (Bld) 22.2 % Normal [facility] Comment on above: Order Comment: Speci men Type: BLOOD SPECIMENOrdering Facility: [facility] Address: [address] [place] [address] Performed By: #### 5 7021-8 ####[facility] LABORATORYCLIA [id number] [address] [place] MCH (RBC) [Entitic mass] 29.3 pg Normal 26.0-34.0 [facility] Comment on above: Order Comment: Speci men Type: BLOOD SPECIMENOrdering Facility: [facility] Address: [address] [place] [address] Performed By: #### 5 7021-8 ####[facility] LABORATORYCLIA [id number] [address] [place] MCHC (RBC) [Mass/Vol] 31.7 g/dL Normal 30.5-36.0 [facility] Comment on above: Order Comment: Speci men Type: BLOOD SPECIMENOrdering Facility: [facility] Address: [address] [place] [address] Performed By: #### 5 7021-8 ####[facility] LABORATORYCLIA [id number] [address] MCV (RBC) [Entitic vol] 92.4 fL Normal 80.0-100.0 C [facility] Comment on above: Order Comment: Speci men Type: BLOOD SPECIMENOrdering Facility: [facility] Address: [address] [place] [address] Performed By: #### 5 7021-8 ####[facility]ATORYCLIA [id number] [address] [place] Monocytes (Bld) [#/Vol] 0.65 10*3/uL Normal <0.87 [facility] Comment on above: Order Comment: Speci men Type: BLOOD SPECIMENOrdering Facility: [facility] Address: [address] [place] [address] Performed By: #### 5 7021-8 ####[facility]ATORYCLIA [id number] [address] OF [place] Monocytes/100 WBC (Bld) 12.0 % Normal [facility] Comment on above: Order Comment: Speci men Type: BLOOD SPECIMENOrdering Facility: [facility] Address: [address] [place] [address] Performed By: #### 5 7021-8 ####[facility] LABORATORYCLIA [id number] [place] [address] [place] Neutrophils (Bld) [#/Vol] 3.31 10*3/uL Normal 1.45-7.50 [facility] Comment on above: Order Comment: Speci men Type: BLOOD SPECIMENOrdering Facility: [facility] Address: [address] [place] [address] Performed By: #### 5 7021-8 ####[facility]ATORYCLIA [id number] [address] [place] Neutrophils/100 WBC (Bld) 61.3 % Normal [facility] Comment on above: Order Comment: Speci men Type: BLOOD SPECIMENOrdering Facility: [facility] Address: [address] [place] [address] Performed By: #### 5 7021-8 ####[facility]ATORYCLIA [id number] [place] [address] [place] Nucleated RBC (Bld) [#/Vol] 10*3/uL Normal <0.01 [facility] Comment on above: Order Comment: Speci men Type: BLOOD SPECIMENOrdering Facility: [facility] Address: [address] [place] [address] Performed By: #### 5 7021-8 ####[facility]ORYCLIA [id number] [address] OF [place] Nucleated RBC/100 WBC (Bld) [Ratio] 0.0 /100 WBC Normal [facility] Comment on above: Order Comment: Speci men Type: BLOOD SPECIMENOrdering Facility: [facility] Address: [address] [place] [address] Performed By: #### 5 7021-8 ####[facility]ATORYCLIA [id number] [place] [address] [place] Platelet mean volume (Bld) [Entitic vol] 11.0 fL Normal 9.0-12.7 [facility] Comment on above: Order Comment: Speci men Type: BLOOD SPECIMENOrdering Facility: [facility] Address: [address] [place] [address] Performed By: #### 5 7021-8 ####[facility] LABORATORYCLIA [id number] [address] [place] Platelets (Bld) [#/Vol] 334 10*3/uL Normal 150-400 [facility] Comment on above: Order Comment: Speci men Type: BLOOD SPECIMENOrdering Facility: [facility] Address: [address] [place] [address] Performed By: #### 5 7021-8 ####[facility]ORYCLIA [id number] [address] [place] RBC (Bld) [#/Vol] 4.10 10*6/uL Normal 3.90-5.20 [facility] Comment on above: Order Comment: Speci men Type: BLOOD SPECIMENOrdering Facility: [facility] Address: [address] [place] [address] Performed By: #### 5 7021-8 ####[facility]ORYCLIA [id number] [place] [address] [place] WBC (Bld) [#/Vol] 5.40 10*3/uL Normal 3.70-11.00 [facility] Comment on above: Order Comment: Speci men Type: BLOOD SPECIMENOrdering Facility: [facility] Address: [address] [place] [address] Performed By: #### 5 7021-8 ####[facility] LABORATORYCLIA [id number] [address] [place] CNOVon 11-03-2024 CNOV Normal [facility] Ferritin SerPl-mCncon 2024 Ferritin [Mass/Vol] 29.7 ng/mL Normal 14.7-205.1 [facility] Comment on above: Order Comment: Speci men Type: BLOOD SPECIMENOrdering Facility: [facility] Address: [address] [place] [address] Performed By: #### 3 016-3, 27595-9, 6-4, 3023-7 ####[facility] LABORATORYCLIA [id number] [address] [place] Iron and Iron binding capaci ty panelon 11-03-2024 Iron [Mass/Vol] 93 ug/dL Normal 41-186 [facility] Comment on above: Order Comment: Speci men Type: BLOOD SPECIMENOrdering Facility: [facility] Address: [address] [place] [address] Performed By: #### 3 016-3, 36600-6, 6-4, 3023-7 ####[facility] LABORATORYCLIA [id number] [address] [place] Iron binding capacity [Mass/Vol] 384 ug/dL Normal 232-386 [facility] Comment on above: Order Comment: Speci men Type: BLOOD SPECIMENOrdering Facility: [facility] Address: [address] [place] [address] Performed By: #### 3 016-3, 57440-3, 2275-4, 4-7 ####[facility]ORATORYCLIA [id number] [place] [address] [place] Iron saturation [Mass fraction] 24.2 % Normal 15.0-57.0 [facility] Comment on above: Order Comment: Speci men Type: BLOOD SPECIMENOrdering Facility: [facility] Address: [address] [place] [address] Performed By: #### 3 016-3, 89217-5, 2276-4, 3024-7 ####[facility] LABORATORYCLIA [id number] [place] [address] [place] T4 Free SerPl-mCncon 025 Free T4 [Mass/Vol] 0.9 ng/dL Normal 0.9-1.7 [facility] Comment on above: Order Comment: Speci men Type: BLOOD SPECIMENOrdering Facility: [facility] Address: [address] [place] [address] Performed By: #### 3 016-3, 38584-1, 2276-4, 3024-7 ####[facility] LABORATORYCLIA [id number] [place] [address] [place] TSH SerPl-aCncon 11-03-2024 TSH Qn 0.745 m[IU]/L Normal 0.270-4.200 [facility] Comment on above: Order Comment: Speci men Type: BLOOD SPECIMENOrdering Facility: [facility] Address: [address] [place] [address] Performed By: #### 3 016-3, 66340-1, 2276-4, 3024-7 ####[facility] LABORATORYCLIA [id number] [place] [address] [place] Vit B12 SerPl-mCncon 025 Cobalamin (Vitamin B12) [Mass/Vol] pg/mL High 232-1245 [facility] Comment on above: Order Comment: Speci men Type: BLOOD SPECIMENOrdering Facility: [facility] Address: [address] [place] [address] Performed By: #### 2 132-9 ####[facility]ORATORYCLIA [id number] [place] [address] [place] Bacteria Ur Culton Bacteria identified Cx Nom (U) ORGANISM ID: 1 <10,000 CFU/ml Lactose positive gram negative bacilli Insignificant colony count. No further workup. Normal [facility] Comment on above: Performed By: #### 6 30-4 ####[facility] LABCLIA [id number] [address] [place] CNOVon 10-31-2024 CNOV Normal [facility] UA DIP, URINE (POC)on 2024 BILIRUBIN UA (POCT) Small Abnormal Negative [facility] CLARITY UA (POCT) Clear [facility] COLOR UA (POCT) Red [facility] GLUCOSE UA (POCT) 100 mg/dL Abnormal Negative [facility] Hemoglobin Ql (U) Large Abnormal Negative [facility] Interpretation and review of laboratory results Abnormal [facility] KETONE UA (POCT) Trace Negative mg/dL [facility] LEUKOCYTES UA (POCT) Large Abnormal Negative [facility] NITRITE UA (POCT) Positive Abnormal Negative [facility] PH UA (POCT) 6 4.5 - 8.0 [facility] Protein Ql (U) >=300 Abnormal Negative mg/dL [facility] SPECIFIC GRAVITY UA (POCT) 1.01 1.005 - 1.030 [facility] UROBILINOGEN UA (POCT) 2 Abnormal Carleen l E.U./dL [facility] Location:[address], [place], [place], [address] [place] [address] POINT OF CARE [facility] GENOVEVA SCREENINGon 10-21-2024 GENOVEVA SCREENING Normal [facility] OCT MACULA CIRRUS OU (BOTH E YES)on 10-13-2024 [facility] Radiology Study observation (narrative) [facility] CNOVon 10-12-2024 CNOV Normal [facility] CNOVon 10-07-2024 CNOV Normal [facility] CNPNon 10-07-2024 CNPN Normal [facility] CNOVon 09-29-2024 CNOV Normal [facility] CNPNon 09-25-2024 CNPN Normal [facility] CNOVon 09-24-2024 CNOV Normal [facility] CNOVon 09-15-2024 CNOV Normal [facility] CNPNon 09-15-2024 CNPN Normal [facility] CNPNon 08-12-2024 CNPN Normal [facility] CNPTOUTREACHon 08-10-2024 CNPTOUTREACH Normal [facility] CNPNon 07-27-2024 CNPN Normal [facility] Cerv Spine 4 or 5 Viewson Cerv Spine 4 or 5 Views [facility] Radiology [address] [place] [address] Cerv Spine 4 or 5 Views MR#: [id number] Acct: [id number] Name: ALLIE LYNN ANN Rep #: [id number] : 1970 F 54 From: Henrik Cardona MD PCP: Dr. Ifeoma Davis MD Status: DEP AMB Study: Cerv Spine 4 or 5 Views Date of Exam: 07/15/24 Exam# [id number] Ordering Dr: Allie Prakash [id number] STUDY: X-RAY - CERVICAL SPINE REASON FOR [...] CC: Allie Prakash; Dr. Ifeoma Davis MD County Assessor: Signed [facility] CNPNon 07-10-2024 CNPN Normal [facility] CNPNon 07-09-2024 CNPN Normal [facility] CNOVon 07-08-2024 CNOV Normal [facility] COVID AND INFLUENZA A/B AND RSV PCR, ROUTINEon 07-08-2024 SARS-CoV-2 (COVID-19) RNA SUKUMAR+probe Ql (Unsp spec) SARS-COV-2 (AGENT OF COVID-19) RNA: Not detected INFLUENZA A RNA: Not detected INFLUENZA B RNA: Not detected RESPIRATORY SYNCYTIAL VIRUS (RSV) RNA: Not detected Normal [facility] Comment on above: Performed By: #### C VFLRS ####[facility] LABCLIA [id number] [place] [address] [place] [facility] 06-04-2024 Non-Invasive Vascular Laboratory [facility] Carotid Duplex Bilateral/Complete Date of service/time: 06/04/2024 [...] below for Image [facility] OCT MACULA CIRRUS OU (BOTH E YES)on 02-18-2024 [facility] Radiology Study observation (narrative) [facility] SURGICAL PATHOLOGYOrdered By : Rik De La Paz on 06-07-2023 Addendum j3qrjITaHXEnaKRoLFDm M 1knuxFgIEYahRVlL9Klsm rjCOipNM5mBL5isCoamXZ nyOKyROTzGrMxg7lil138 gDNgl3guYJHYBSgmQOEII Oq2x2klJGWFubfewPd8eE zxS03oc3L8MqzxC9ckYPQ wXGdyZWVuMFxibHVlMDt9 XHBhcGVydzEyMjQwXHBhc AEntCQ9EVRoWQ5chluvNC osGKskLIFgcjU6HSGvgVC tV8EmAUGsZW7pxjvgBLD0 DHmdHBLkBNY4LcVcZAVxk 1Anreb7VqUocJKjQAtfqK FpblxmMVxmczIwIEltbXV ct2xtw4AgP4bkxOtayPS0 IGZvciBILiBweWxvcmkga XMgbmVnYXRpdmUgKHBhcn QgQikuXHBhclxjZjFccGF kTYryAs6vMGEcslvvGLP8 HYhojILqYXKii4RaFEnGL SkiMImgS0uywS9jywwntP IpUUPhzcAvyx5hxxOoSPK rAFTxE6MufexezWiwlmOs QsSlfZ72xy1bvLB3x8ZpX Q6wA3JhDFPobQ24tc3rrH RvbmOfC2PpaWHwpqPmT8z ok50wW7UxmNEbdK5bx9s8 vPDgjACvyNNwxpF1vV3wU DBed8TwTOtbybJzSeNilf GvDOYczh8rkgAlALY6PSZ bFIOfMGVzn0WqzQ9iHEqx Ou6dXFRsoomou0t0oAbaI ENsZXZlbGFuZCBDbGluaW SokCxtOKidZUu0BqIhEm4 yQTM7LEifJXLboDwxT0ub JSY0aM6cu5o5MQVoJJZDA BYdrjR9n9A7IT4bVRhsjH 8cYOyyz9RdyUL2EIPeMBG lqiIKPD4ebWIzCK1cvIr1 OJfaJSEnmo2vJTbwgwPeM RxtYU4ceBh3UBjeKJIos9 EgQDTdW1ObmK5yCBxjm9E uhBZpKKFCXVDmaXDLm1Zd sBGvrZizOQ9wiBNlBIMat wVrJD2zWOrzRUbkE8FzdI HuJKSFOBW1lA2qDRFnuRI fJN9nuhAjCXjwm3OmlHPu ZNGlwqMVfltjbpKPk3Utp RAejXpslE6lNXWmCZ1yTL PuC73zb4igoEUxaNO2uGR dHLPLGOXhfoIukHddGJ1g ljQwTgJOosGyx8VakK2dZ DVqDuH7aFFgCWI9VVH0sj UxNOYjHV4caFHuLEEcKAQ lOBOgWJPbd3JoFEWolx43 CKHzAvhxpBpmTSXXNY2dO oVjBBxLYTSaooTwQHx1wQ V6NUSymU8mSXYzC0lCEHF pytAcbRVuiNPzLQLhqK7n qABjSy0pfTOqwWxsFPUlv XBsZXhpdHkgdGVzdGluZy 6cKKibs5BarMWlzRAkPJS kKRSvNTSvXm3pQOZctG3s O1VjKOJ9qnVwz7JxObRNt NH0MYJjp2IfZDNcc7QjCx UgcmVnYXJkZWQgYXMgaW5 8VSC3fYiqiElefsJzGL5t MWHaimPkPCJyNQFjwD7qW R9eyKFrfxPvWI6jBL1sT0 R6rXOgTYIzanVom0meQGM 0YWluIGFwcHJvcHJpYXRl bHkuXHBhcn0= [facility] Work Phone: Case Report Surgical Pathology Report Case: [id number] Authorizing Provider: Andry Connelly MD Collected: 05/30/2023 01:16 PM Ordering Location: Ambulatory Surgery Received: 05/30/2023 09:01 PM Pathologist: iRk De La Paz MD Specimens: A) - DUODENUM BIOPSY, 2nd portion B) - ANTRUM (STOMACH) BIOPSY C) - STOMACH (GASTRIC) POLYP BIOPSY D) - RECTAL POLYP [facility] Work Phone: FINAL DIAGNOSIS e6cpxFWmGZDciBGtZBYi M 7hhdoCbQQBbiFLaK0Psvj zqGJraNT9cEN6owXtgbHT gxQGrJCCcPpHcn6tlw056 sZQbf2xuRSTNinqxyMj5w KzmS57bz8G1LxliE59tpV GpPDZ3FMFnPYKfrKLrBVN xLOS4ZDJabBUiG9vwOPVo JM7ymgcxJEfiRCdaBGAaq ET9ONMiwSByB6LwUBBiTK seSUVjbkd4SpBfFf0pqSW yeTcyMFxwYXJkXHBsYWlu VILgKmBeNE2tXSM3h5Mjb wSmJVExlF6qi7m8HYPreb AtIFNtYWxsIGludGVzdGl yYQtnmRYgh5JvIQnlgSfg qg5hw2fehcrbfTYalzLgx IY4hW0av4joRaGaEz2zhn 8zzAc7mD8rhFDjNBCycmN LZtFrT6NfgNLscOflBdac tAH3OetgAKDsMSUObQceI TJahx4qnUKaL6LygMAqhW lzLlxwYXJccGFyIEMuICB SgP0kMKCrHQNte7a4eTAe vE3pbJdcyFHlED6eNpBeA MydOVryFA3cRGUurQfyQb xwYXJccGFyIEQuICBSZWN 7aD3pARQbhGkgQEB4n343 VcwbKPFiJBAXwCU4zNVoQ DWmLN9glQTkCYSgsi5= [facility] Work Phone: Gross Description y2dtlEKqCBDvrSJRKFL9 M OMyXZ4stBpviJz7tWwsDG IgtzS8bXRjPQptn0deRLV 8b7fmqiUAEqymGYOvMK4l UTlkVSMlZV4sAiTaVDFmS mYxXHBhcGVydzEyMjQwXH QgoVWziKR6CZNqGX8rbmu xLGeaOCccENJgnfP9FZWa zRPkH9GnFDGfFV3asofjQ RL9ZXVFBjsyZn9uvGGneO tcZjFcZmNoYXJzZXQwXGZ iiEitHSWkDFb2dI1ZQfez LOC1VFJDIferOkjlrIoye 2VjdCBcXHNnIFxcaWQgNT EwMDAgXFxkYiBPVlIgIiA 3GhtyAxh8FeNcQBh7LGdv CaQAVFt9VXT6OvHePHs5N TkgXFxuaCBcXHQgMSBcXG AzUQhzyeB9r9vgUPVsvIJ mZIN9YAxfc6urLZebUKA8 QTWuQtOyVXOgQD2CEhJhK DVvWlOaJsyjGcR4HVi7IN BPVlMgIiAgMzgwNjQwMjk lBNi2RTr0KXiBCuCpGIXp AooiOPRsLlJ2MJh4LtOrU HQgMiBcXHNzIDMgXFxmbC NrYM1mjNxmMAPbIF0DXHY iJEaqWHKfMcYeEA1rRCRT PXVRWR5wLhpNPLEXNTr2n mNoXHBhciANClxwYXJkIA 1AHWJiFJipUJp5miOiRKZ vCcJjZRKmQ52hs4JMi1Ai CK5PSBh6wpPmbjmcwG7zI HJpbjAgDQpcZnMyMCBSZW OztQUxRPRdbpLux0GkGFr pbiBhcmUgbXVsdGlwbGUg iUuaN1IyLR4lKLTuuqpzv 72spXR2zYOfyWBaUBfqhc UlMLFjrzggpS6eIWXbMPU 0YIXiGsR7PRIqTvIfrK7w CL29MAnkzXAciBZonTF0I YLxaQ6so55yKTYfw1OrxZ MvKthuJUAiOLucd7DtYPl lcGljWHNhMzAgDQpcZXBp C56gj2RYo3Jwp1gvmSmma 4EdfCXkXC1nuXFxDM8Cw6 gtBIJgfXOiOAZ7MOznr2m fNQpwZOY5KDVhCfGmCYPt PH4ZMyRgWODuGsXnDtneR mG5ALn7JYHYElYiDpUuWn cvBcVvWCIgSKz9QAz5FIu URfZvSSBwEbutFKS2ZGZ8 NXr1RnTuHXGfJgYdWPHzT EUdJFaagDRwYN9etXitRI JnKPOgBMG7BNYcrQDZb3A xMDUgDQpcZnMyMiBCLiBB RsFETE4wMWUTS51PH8soM DXYN3MNPZbfYSZtTMxgmK FyZCANClxwbGFpblxsdHJ jaFxmczIyXGVwaWNOZXN0 JT7iMTDHNgljuJIkUFZov WmnYIbpjV7rPUMaQsDeMI UvM2bvNdUoIB1LFJIxPgP vIbPxZJj7OJYciE1fBg9n fYJwuE7yTIOfOTI5fpNjd ZCxPTJiw9YgxBGqAORhr9 B6VDTaw5L1NPVvP4kfXPj zkJijRzK2mrIgAfjsxSTt MdSzyEGtMiOtY23sMCTri VBqhNtvl6YqaTp0cYWuXW gbXD3bGXRrAMYjXGP1EE6 cbPJuWK4QZMGdFZepmCzl WHNiMFxzYTMwXGVwaWNYc 2EzMCANClxlcGljTmVzdE JmVbR1CEMolTPdHCE5TH5 ibKilDXMaVTa0YSjkNTVo U3YzL9RyLUzqBrBjZLimY QEzCEGoKSlqGCQaN8KPDA SbJMS4FnM1YxGsGWx0XHo 4DW4UUeXiGJPiZFW7EDE2 LSJdJNb3YKwaER8FDVHsX vUaOEK0Tkv5XOF1Fuw9BJ wyfASwHAanx5VqQaRgERI cDTszxeM1JJSzzdBgy7Jc HGPgQXNyN2fgGvQkIMWZI jcrmhMeSZGiDJZNE87IL1 abCQiTM7LURVYsTYJURQo VTGVRD5TFZEtmEYAeXUes cGFyZCANClxwbGFpblxsd HJjaFxmczIyXGVwaWNOZX X2ZD9kAIKUXhmtyDTfOUO nnTueIVayuS3lGSIqCuTs UAYvN0rtJrLjQW4VVLBzI vFnOvZmUTj8TRAhsB8rVf 9mkNKdhK2cnUMtf18kXOO wAJBjKM3rLKUpdh6nfn98 ododl49xeIE4cSOphYTfc BFeg2KsvX4nHEBdSsQ0YW VvVfF4ZRQcLqVwkH6rBT3 2VYdtaVKvkOHmoRT2LTTg uW9pd66qMKIxv9VzmEHaW lMtkAPeOX1QZGXqMDjymH ljWHNiMFxzYTMwXGVwaWN Uv8MyHXQSTgtvgAgcMfOi rKEaKtL7HSJksQAhBDE9N F7zjWsrWBDlJZn1QAzsKM QnX1PxG0JiIDkoXjLnFSl rWHNdYVPkOFspUZZhD4LB PFVdRZX3LtX9SmWbOXw1R Gs6RP7REoHdMCXmHIC6TD q6LfJeKZm5XTprMQ7FMIH rTeEfWMO9Pem6APP2Fbq5 ANpigXQbTFerr3EeDuKkB UIdNLitloD0OLKjjyWks4 TwSCXkLGOqB6bhHhWnQKY CUmcnodLnJWQcAANLP1DW ZMAIS0jKGEiuYOSwNYtix GFyZCANClxwbGFpblxsdH JjaFxmczIyXGVwaWNOZXN 6KB0kADILDnbtcFKnMUMv xNucQWtynO2pDVXrLzFrK GIyA6ptUyBxAU0WBMAkHv LiZcLvHNh1PSZdkI5tMr3 bvHUctW5wgUStz92xRXUi JUXsAF2bBURalzzff04ma LW7kJCzdSKmwZFqe3FxgC 7lTFWyBdB5PSXpZlM9YZC qDSUwtB8oMO31UHmwkKEj gLYvwZO4IMEjcH8fz10eC HGkn9YjzCQkSlZwgHGtCL 0KXHNiMFxlcGljWHNiMCA SStIyoBOpYT9RF8Dfn2Rb LQdvrOtjRAUkh11adJOwH x0fpINsZXG9LAMlWHJttF LgFOWLzItcePCmJWt7DXQ cWGBmyKjvMVI8QT4fHRHx YNKrvTCqDCatO5mjCSMzD VDdtGNdDN8KPOMtawMODa tLIFNlcHRlbWJlciAyOSw iAxTiKoXrTjZ3KRSQHH9z tNYrMB4LJNWkymUWYduoJ WXeDBYcqIECx6SjPGKJOx nntMnwJvYgmRGeIfP2JWX cvVDxOYJ7NX6bkZkrTRBw P2OaF6VwtaC5MHJrpaXER gyoLLQdCY1DHQLlTyRyBQ p9 [facility] Work Phone: Performing Lab h7zheGEmBLTwpAVdGwHo M IWbXHSgd6tzAMGpxTQkXn EwMzNcZnRuYmpcdWMxXGR nUgTbl3sky234sPOiu3po BVNdJbD7fKGvCSZbiSCjT 704UUUjZQids0kun5TlDO JrdHQva2X4XBLLnilvlDr 1fJytQ65jh3M8NcsrF1aw VCArQSCoY9WcHV6pSURyX ma9BLZ2YUA3IVAdSIQfI7 DvQC9tDIUvrFBgOCw1y5u uyErlZPYuESE7r0ioSYjm csRzDH1yhw4wdMs4i1aua zEgRGVmYXVsdCBQYXJhZ3 BtmKhcOs3glBs3eFmyHfo xTEK6Ani2EM4fgc10sap3 pNraZCUcedlvVoX8ZJczC SApbqokDYe8NIriQFHfpD G5ICXitPCpR8ObFDtfRC5 hvtr1DFG5EGzuHSJuYbL9 NDBcaGVhZGVyeTcyMFxmb 718WFE7VmCsUI1tQ5Hew2 S0gX4krBGfNDBopKIiTmN fIFCjcq2wmIOdPLabb7Hs PCC6ljI7dCOznYGnNVRcW A33Abkir9MeNgvdo3JoK4 8ijRB9SWckh5geZT5wPbE 6noNuQDmpd6mblI6xPfS7 EYniJF2mEY9nBAGrxQ1nq mxjXHBnYnJkcmhlYWRccG pnyqRpBf2egQrnDLP9CMe mA8ddjM5jXaH9KWpaC3yu dP3kFKs4QVvqeDM3KEAen V8dBP0nuddym5piFIzyBX mvHYEdqjN6vwFcJSPbvNL rU6VmfJ7iITIkCT4ogwft k4dfXQW2CDwoBKGmJQE5A rMkUGQpg7Lhmsm3DdOsj2 WsmTGnEDbgU56rs291YWJ lvcKjI3xazPIchdwgxMPw rarlEMlkhcO6IRObIKOmK WluXGYxXGZzMjJcbGFuZz EwMzNcaGljaFxmMVxkYmN gWJNkVCgvN5lyZrYqRfDz YsBPjMMosk1apWigLTxud ZNhuXAzgPJ6sI3tVSQvmh Czwq2rTVLpsEEDcTK2WZa bnvLoH8oudojeJSF9RAPb WNR4A7slHHAQcvQvAEWqD SYnjKAiGAWTIJR7COS6ZH QaNMWFCWAsLSS6FNE9CGA wOTRccGFyXHBhclxwYXJk XHBsYWluXGYwXGZzMjRcc ZtadF8lEdYoBcKlDljiBY 1uFJVxF6erbITtGBGyTPN iN1egEeCbiR8onJyfBCam ZjJcZnMyMlxsdHJjaCBMY OFsjaW4v5V1PAkfzRRgcz xmMVxmczIyXGxhbmcxMDM uOUacM6xqGcDsDBKmwGcz ZDtso9XkONJfABUsRkHvA KsvBFL7v7E3DYuijIZktf TWNsNSXO6lxGFmabcbAA1 ELlxwYXJ9 [facility] Work Phone: [phone] [facility] Work Phone: [phone] EGD Study observation Araceli aceves 06-01-2023 [facility] Gastrointestinal Endoscopy Patient Name: Allie Lynn Procedure Date: 05/30/2023 1:05 PM Date of : 1970 Admit Type: Outpatient Age: 53 Room: [place] [address] Gender: Female Note Status: Finalized Attending MD: [...] previously scheduled. Procedure Code(s): --- Professional --- 74659, Esophagogastroduodeno scopy, flexible, transoral; with biopsy, single or multiple CPT copyright 2020 [employer]. All rights reserved. The codes documented in this report are preliminary and upon fuel assembler review may be revised to meet current compliance requirements. (more content not included)... PROVATION [facility] Flexible sigmoidoscopy study on 06-01-2023 [facility] Gastrointestinal [facility]oscopy Patient Name: Allie Lynn Procedure Date: 05/30/2023 1:05 PM Date of : 1970 Admit Type: Outpatient Age: 53 Room: [place] [address] Gender: Female Note Status: Finalized Attending MD: [...] antiplatelet agents. Procedure Code(s): --- Professional --- 94404, Colonoscopy, flexible; with biopsy, single or multiple CPT copyright 2020 [employer]. All rights reserved. The codes documented in this report are preliminary and upon fuel assembler review may be revised to meet current compliance requirements. Attending Participation: I personally performed the entire procedure. Scope In: 1:23:39 PM Scope Out: 1:33:56 PM MD Andry Martin MD 05/30/2023 1:42:21 PM This report has been signed electronically by Andry Connelly MD Number of Addenda: 0 Note Initiated On: 05/30/2023 1:05 PM Estimated Blood Loss: Estimated blood loss was minimal. PROVATION [facility] EGD Study observation Narrat iveon 05-30-2023 Radiology Study observation (narrative) [facility] Flexible sigmoidoscopy study on 05-30-2023 Radiology Study observation (narrative) [facility] Basic metabolic 2000 panelon 05-22-2023 Anion gap [Moles/Vol] 10 mmol/L 9 - 18 mmol/L [facility] Calcium [Mass/Vol] 9.8 mg/dL 8.5 - 10. 2 mg/dL [facility] Chloride [Moles/Vol] 101 mmol/L 97 - 10 5 mmol/L [facility] CO2 [Moles/Vol] 25 mmol/L 22 - 30 mmol/L [facility] Creatinine [Mass/Vol] 0.86 mg/dL 0.58 - 0.96 mg/dL [facility] Estimated Glomerular Filtration Rate 80 mL/min/1.73m >=60 mL/min/1.73m [facility] Glucose [Mass/Vol] 79 mg/dL 74 - 99 mg/dL [facility] Potassium [Moles/Vol] 4.1 mmol/L 3.7 - 5.1 mmol/L [facility] Sodium [Moles/Vol] 136 mmol/L 136 - 144 mmol/L [facility] Urea nitrogen [Mass/Vol] 18 mg/dL 7 - 21 mg/d L [facility] URIC ACID BLOODon 05-22-2023 Urate [Mass/Vol] 3.6 mg/dL 2.5 - 6.6 mg/dL [facility] ANES POSTPROC EVALon 023 ANES POSTPROC EVAL HNO ID: [id number] Author: Mary Kline MD Service: Anesthesiology Author Type: Anesthesiologist Type: Anesthesia Postprocedure Evaluation Filed: 11/07/2022 12:01 PM Note Text: POST ANESTHESIA EVALUATION NOTE : 1970 Procedure Summary Date: 11/07/22 Room / Location: [place] OR / [place] Anesthesia Start: 948 Anesthesia Stop: 1024 [...] November 07, 2022 TIME: 12:01 PM CSN: [id number] [facility] ANES PRE-OPon 11-07-2022 ANES PRE-OP HNO ID: [id number] Author: Mary Kline MD Service: Anesthesiology Author Type: Anesthesiologist Type: Anesthesia Preprocedure Evaluation Filed: 11/07/2022 9:04 AM Note Text: ANESTHESIOLOGY DAY OF SURGERY NOTE : 1970 Procedure Information Date/Time: 11/07/22 0955 Procedure: RELEASE TRIGGER FINGER - RIGHT RING AND LEFT MIDDLE FINGERS (Bilateral: Finger) Location: [place] OR02 / [place] Surgeons: Massimo Roberts MD Estimated body [...] 1 tablet by mouth once daily. - lisinopril-hydroCHLOR Othiazide (PRINZIDE,ZESTORETIC) 10-12.5 mg per tablet Take 1 tablet by mouth once daily. - omeprazole (PRILOSEC) 20 mg capsule Take 1 capsule by mouth once daily. - conjugated estrogens-medroxyPROG ESTERone (PREMPRO) 0.45-1.5 mg per tablet Take 1 tablet by mouth once daily. - L.acid/B.animalis,bif idum/FOS (PROBIOTIC COMPLEX ORAL) Take by mouth. - biotin/calcium carbonate (BIOTIN-CALCIUM ORAL) Take by mouth. - traZODone (DESYREL) 50 mg tablet Take 1 tablet by mouth daily at bedtime. - aspirin, enteric coated (ASPIR-LOW) 81 mg EC tablet Take 1 tablet by mouth once daily. - trimethoprim-polymyxi n (POLYTRIM) 10,000 unit- 1 mg/mL [...] November 07, 2022 TIME: 9:04 AM CSN: [id number] [facility] HISTORY PHYSICALon HISTORY PHYSICAL HNO ID: [id number] Author: Taina Fan PA-C Service: Orthopaedic Surgery Author Type: Physician [facility] Type: HANDP Filed: 11/07/2022 9:27 AM Note Text: Massimo Roberts MD Department of Orthopaedics [facility] [address] [place] [address] Dept: [phone] Dept October 01, 2022 CHIEF COMPLAINT: Established [...] as to contrast therapies and/or to take analgesics/anti-infla mmatories as needed and all contraindications were reviewed. [...] W/WO ENDOCERVIX BX W/O DILAT SPX 02/18/2012 ESOPHAGOGASTRODUODENO SCOPY TRANSORAL DIAGNOSTIC 02/03/2018 EGD INCISION OF EYE, TRABECULECTOMY Right 10/26/2021 LASER SELECTA 2 TRABECULOPLASTY Left 01/08/2020 LASER TRABECULOPLASTY OD (RIGHT EYE) Right 10/26/2021 REMV CATARACT EXTRACAP,INSERT LENS Right 06/25/2022 S BALLOON,UTERINE ABLATION [id number] Medications: CURRENT MEDICATIONS Current Outpatient Medications Medication [...] Take 1 tablet by mouth once daily. lisinopril-hydroCHLOR Othiazide (PRINZIDE,ZESTORETIC) 10-12.5 mg per tablet Take 1 tablet by mouth once daily. omeprazole (PRILOSEC) 20 mg capsule Take 1 capsule by mouth once daily. conjugated estrogens-medroxyPROG ESTERone (PREMPRO) 0.45-1.5 mg per tablet Take 1 tablet by mouth once daily. L.acid/B.animalis,bif idum/FOS (PROBIOTIC COMPLEX ORAL) Take by mouth. biotin/calcium [...] - Morphine Analogues, Propoxyphene, Tramadol, and Vicodin [Hydrocodone-Acetamin ophen] ROS: General (negative for fatigue, malaise, weight loss/gain) HEENT (negative for headache, earache, recent vision changes, sinus pain, sore throat) Respiratory (no recent shortness of breath, hemoptysis) CV (negative for chest tightness, palpitations) Musculoskeletal (see HPI) Psych (no depression, anxiety) Massimo Roberts MD [facility] OPERATIVE NOon 11-07-2022 OPERATIVE NO HNO ID: [id number] Author: Massimo Roberts MD Service: Orthopaedic Surgery Author Type: Physician Type: Operative Report Filed: 11/07/2022 10:43 AM Note Text: OPERATIVE/PROCEDURE REPORT LOG ID: [id number] SURGERY/PROCEDURE DATE: 11/07/2022 INCISION/PROCEDURE START TIME: 10:01 AM INCISION CLOSE/PROCEDURE END TIME: 10:19 AM SURGEON(S)/PROCEDURAL IST(S) AND CHOIR LEADER(S): Surgeon(s) and Role: * Massimo Roberts MD - Primary Physician [facility]: Taina Fan PA-C Registered Nurse Compounding Pharmacy Technician: Marnie Freitas RN SURGERY/PROCEDURE(S): Right, ring finger [...] Left, middle and Right, ring trigger fingers. Post-Op/Post-Procedur e Diagnosis: same. Estimated Blood Loss: None Specimens: None Implantable Devices: None Drains: None Complications: None I performed each procedure. CLOSURE TECHNIQUE: Primary SIGNATURE: Massimo Roberts MD PATIENT NAME: Allie Dianety DATE: November 07, 2022 TIME: 10:38 AM [facility] CNTHERAPYon 10-31-2022 CNTHERAPY OT/PT/Speech Visit ([facility]) AAMIRALLIE ([id number]) 1970 F Date Time Provider Department 10/31/22 9:45 AM MICHELLE PEREZ Date Time Provider Department Center 10/31/2022 9:45 AM [id number][facility] Reason for Visit: [...] See Comments Comments: Loss of conciousness VICODIN (HYDROCODONE-ACETAMIN OPHE*04/28/2012 9 - Itching Date Reviewed: 10/16/2022 Reviewed by: Celeste Cardona LPN - Fully Assessed Prescriptions as of 10/31/2022 - trimethoprim-polymyxi n (POLYTRIM) 10,000 unit- 1 mg/mL [...] 1 tablet by mouth once daily. - lisinopril-hydroCHLOR Othiazide (PRINZIDE,ZESTORETIC) 10-12.5 mg per tablet Take 1 tablet by mouth once daily. - omeprazole (PRILOSEC) 20 mg capsule Take 1 capsule by mouth once daily. - conjugated estrogens-medroxyPROG ESTERone (PREMPRO) 0.45-1.5 mg per tablet Take 1 tablet by mouth once daily. - benzonatate (TESSALON PERLES) 100 mg capsule Take 1 capsule by mouth three times daily as needed for cough. - L.acid/B.animalis,bif idum/FOS (PROBIOTIC COMPLEX ORAL) Take by mouth. - [...] this patient by: PATIENT ALMA DELIA Rosario [facility] GENOVEVA CARR RTon 023 [facility] US BREAST LTD RTon 3 [facility] CNTHERAPYon 10-17-2022 CNTHERAPY OT/PT/Speech Visit ([facility]) ALLIE LYNN ([id number]) 1970 F [place] Date Time Provider Department 10/17/22 10:45 AM MICHELLE PEREZ Date Time Provider Department Center 10/17/2022 10:45 AM [id number] [...] See Comments Comments: Loss of conciousness VICODIN (HYDROCODONE-ACETAMIN OPHE*04/28/2012 9 - Itching Date Reviewed: 10/16/2022 Reviewed by: Celeste Cardona LPN - Fully Assessed Prescriptions as of 10/22/2022 - trimethoprim-polymyxi n (POLYTRIM) 10,000 unit- 1 mg/mL [...] 1 tablet by mouth once daily. - lisinopril-hydroCHLOR Othiazide (PRINZIDE,ZESTORETIC) 10-12.5 mg per tablet Take 1 tablet by mouth once daily. - omeprazole (PRILOSEC) 20 mg capsule Take 1 capsule by mouth once daily. - conjugated estrogens-medroxyPROG ESTERone (PREMPRO) 0.45-1.5 mg per tablet Take 1 tablet by mouth once daily. - benzonatate (TESSALON PERLES) 100 mg capsule Take 1 capsule by mouth three times daily as needed for cough. - L.acid/B.animalis,bif idum/FOS (PROBIOTIC COMPLEX ORAL) Take by mouth. - [...] patient by: PATIENT ALMA DELIA Rosario Normal [facility] XR SHOULDER [id number] AP/SYLVIA E AP RIGHTon 10-09-2022 [facility] XR HAND GENERAL 3V PA/LAT/OB L BILATERALon 10-01-2022 [facility] GENOVEVA SCREENINGon 09-27-2022 [facility] CNTHERAPYon 09-19-2022 CNTHERAPY OT/PT/Speech Visit (OTNOCA) ALLIE LYNN ([id number]) 1970 F LV Date Time Provider Department 09/19/22 12:30 PM MICHELLE PEREZ Date Time Provider Department [place] 09/19/2022 12:30 PM [id number], REBECCA*OTNOCA [facility] N Reason for Visit: OT [...] See Comments Comments: Loss of conciousness VICODIN (HYDROCODONE-ACETAMIN OPHE*04/28/2012 9 - Itching Date Reviewed: 08/16/2022 Reviewed [...] 1 tablet by mouth once daily. - lisinopril-hydroCHLOR Othiazide (PRINZIDE,ZESTORETIC) 10-12.5 mg per tablet Take 1 tablet by mouth once daily. - omeprazole (PRILOSEC) 20 mg capsule Take 1 capsule by mouth once daily. - conjugated estrogens-medroxyPROG ESTERone (PREMPRO) 0.45-1.5 mg per tablet Take 1 tablet by mouth once daily. - benzonatate (TESSALON PERLES) 100 mg capsule Take 1 capsule by mouth three times daily as needed for cough. - L.acid/B.animalis,bif idum/FOS (PROBIOTIC COMPLEX ORAL) Take by mouth. - [...] by this patient by: PATIENT ALMA DELIA Rosaroi Normal [facility] ANES POSTPROC EVALon 06-25-2 022 ANES POSTPROC EVAL HNO ID: [id number] Author: Florencio De La Fuente MD Service: Anesthesiology Author Type: Anesthesiologist Type: Anesthesia Postprocedure Evaluation Filed: 06/25/2022 12:00 PM Note Text: POST ANESTHESIA EVALUATION NOTE : 1970 Procedure Summary Date: 06/25/22 Room / Location: [facility] / [facility] Anesthesia Start: 957 Anesthesia Stop: 1130 Procedures: [...] June 25, 2022 TIME: 12:00 PM CSN: [id number] [facility] ANES PRE-OPon 06-25-2022 ANES PRE-OP HNO ID: [id number] Author: Florencio De La Fuente MD Service: [...] W/INTRAOCULAR LENS POWER CALCULATION (Right: Eye) Location: [place] [address] / [facility] Surgeons: Jonathon Eugene MD Estimated body mass [...] mouth twice daily as needed. - conjugated estrogens-medroxyPROG ESTERone (PREMPRO) 0.45-1.5 mg per tablet Take 1 tablet by mouth once daily. - omeprazole (PRILOSEC) 20 mg capsule Take 1 capsule by mouth once daily. - lisinopril-hydroCHLOR Othiazide (PRINZIDE,ZESTORETIC) 10-12.5 mg per tablet Take 1 [...] obtained within 48 hours of Surgery/Procedure. SIGNATURE: Floerncio De La Fuente MD PATIENT NAME: Allie Lynn DATE: June 25, 2022 TIME: 9:57 AM CSN: [id number] [facility] HISTORY PHYSICALon HISTORY PHYSICAL HNO ID: [id number] Author: Jonathon Eugene MD Service: Ophthalmology Author [...] DATE: June 25, 2022 TIME: 10:02 AM [facility] OPERATIVE NOon 06-25-2022 OPERATIVE NO HNO ID: [id number] Author: Jonathon Eugene MD Service: Ophthalmology Author Type: Physician Type: Operative Report Filed: 06/25/2022 11:35 AM Note Text: OPERATIVE/PROCEDURE REPORT OPHTHAMOLOGY LOG ID: [id number] SURGERY/PROCEDURE DATE: 06/25/2022 INCISION/PROCEDURE START TIME: 10:13 AM INCISION CLOSE/PROCEDURE END TIME: 11:27 AM SURGEON(S)/PROCEDURAL IST(S) AND CHOIR LEADER(S): Surgeon(s) and Role: * Jonathon Eugene MD - Primary PROCEDURE(S): Procedure(s) (LRB): PHACOEMULSIFICATION CATARACT IMPLANT INTRAOCULAR LENS W/O ENDOSCOPIC CYCLOPHOTOCOAGULATION (Right) REPAIR W/SUTURE IRIS AND CILIARY BODY (Right) OPHTHALMIC BIOMETRY BY PARTIAL COHERENCE INTERFEROMETRY W/INTRAOCULAR LENS POWER CALCULATION (Right) PREOPERATIVE DIAGNOSIS: Combined form of age-related cataract, Right eye. Photopsia right eye. Large iridotomy right eye POST-OP/POST-PROCEDUR E DIAGNOSIS: Same as Preop OPERATIVE INDICATIONS: Blurred [...] Implant Name Type Inv. Item Serial No. Floral Arranger Lot No. LRB No. Used Action Model No. LENS ACRYSOF ULTRASERT +14.5 DIOPTER ACRYLIC IOL 1 PIECE FOLDABLE UV BLUE - [id number] Intraocular Lens LENS ACRYSOF ULTRASERT +14.5 DIOPTER ACRYLIC IOL 1 PIECE FOLDABLE UV BLUE [id number] [employer] Right 1 Implanted [id number] Ocular Co-Morbidities: Yes Intra-operative Complications None I/primary surgeon/proceduralist performed the entire procedure. SIGNATURE: Jonathon Eugene MD PATIENT NAME: Allie Lynn DATE: June 25, 2022 TIME: 11:31 AM PAGER/CONTACT #: [phone] [facility] ESR Westergren method (Bld) [Velocity]on 05-04-2022 ESR (Bld) [Velocity] 10 mm/h 0 - 20 mm/hr [facility] C-REACTIVE PROTEIN (CRP)on 0 05-03-2022 CRP [Mass/Vol] <0.9 mg/dL [facility] RHEUMATOID FACTOR BLon 05-03 Rheumatoid factor Qn <16 IU/mL [facility] No Panel Information [facility] Vital Signs Date Time Vital Sign Value Performing Clinician Faci antonio 06-29-2025 06:00-0400 Respiratory rate 16 /min Dr. Ifeoma Davis MD Work Phone: [facility] 06-29-2025 05:17-0400 Body temperature 98.1 [degF] Dr. Ifeoma Davis MD Work Phone: [facility] 06-29-2025 05:17-0400 Diastolic blood pressure 58 mm[Hg] Dr. Ifeoma Davis MD Work Phone: [facility] 06-29-2025 05:17-0400 Heart rate 68 /min Dr. Ifeoma Davis MD Work Phone: [facility] 06-29-2025 05:17-0400 SaO2% (BldA) [Mass fraction] 99 % Dr. Ifeoma Davis MD Work Phone: 2(267)760-655179 [place] [address] 06-29-2025 05:17-0400 Systolic blood pressure 108 mm[Hg] Dr. Ifeoma Davis MD Work Phone: 5(192)957-467479 [place] [address] 06-29-2025 02:44-0400 Body height 154.[address] Ifeoma Davis MD Work Phone: 3(077)650-280879 [place] [address] 06-29-2025 02:44-0400 Body mass index (BMI) [Ratio] 28.4 kg/m2 Dr. Ifeoma Davis MD Work Phone: 6(449)098-913779 [place] [address] 06-29-2025 02:44-0400 Body weight 68.[address] Ifeoma Davis MD Work Phone: 8(434)351-955479 [place] [address] 06-23-2025 21:14-0400 Body temperature 97.8 [degF] Dr. Ifeoma Davis MD Work Phone: 8(343)565-441079 [place] [address] 06-23-2025 21:14-0400 Diastolic blood pressure 62 mm[Hg] Dr. Ifeoma Davis MD Work Phone: 3(358)892-034679 [place] [address] 06-23-2025 21:14-0400 Heart rate 78 /min Dr. Ifeoma Davis MD Work Phone: 8(432)479-323179 [place] [address] 06-23-2025 21:14-0400 Respiratory rate 16 /min Dr. Ifeoma Davis MD Work Phone: 1(924)448-754779 [place] [address] 06-23-2025 21:14-0400 SaO2% (BldA) [Mass fraction] 98 % Dr. Ifeoma Davis MD Work Phone: 0(089)618-181379 [place] [address] 06-23-2025 21:14-0400 Systolic blood pressure 126 mm[Hg] Dr. Ifeoma Davis MD Work Phone: 5(390)473-759179 [place] [address] 06-23-2025 17:25-0400 Body mass index (BMI) [Ratio] 29 kg/m2 Dr. Ifeoma Davis MD Work Phone: 5(265)971-826479 [place] [address] 06-23-2025 17:25-0400 Body weight 69.[address] Ifeoma Davis MD Work Phone: 7(289)518-137179 [place] [address] 06-17-2025 19:44-0400 Body temperature 98 [degF] Dr. Ifeoma Davis MD Work Phone: 0(720)272-990979 [place] [address] 06-17-2025 19:44-0400 Diastolic blood pressure 72 mm[Hg] Dr. Ifeoma Davis MD Work Phone: 4(656)357-810779 [place] [address] 06-17-2025 19:44-0400 Heart rate 70 /min Dr. Ifeoma Davis MD Work Phone: 1(166)766-129979 [place] [address] 06-17-2025 19:44-0400 Respiratory rate 18 /min Dr. Ifeoma Davis MD Work Phone: 7(891)475-949979 [place] [address] 06-17-2025 19:44-0400 SaO2% (BldA) [Mass fraction] 100 % Dr. Ifeoma Davis MD Work Phone: 3(807)166-537979 [place] [address] 06-17-2025 19:44-0400 Systolic blood pressure 157 mm[Hg] Dr. Ifeoma Davis MD Work Phone: 9(686)648-058979 [place] [address] 06-17-2025 17:55-0400 Body mass index (BMI) [Ratio] 25.7 kg/m2 Dr. Ifeoma Davis MD Work Phone: 2(392)710-394579 [place] [address] 06-17-2025 17:55-0400 Body weight 61.[address] Ifeoma Davis MD Work Phone: 5(516)995-995879 [place] [address] 06-03-2025 15:26-0400 Body height 154.[address] Ifeoma Davis MD Work Phone: 7(908)976-319979 [place] [address] 06-03-2025 15:26-0400 Body mass index (BMI) [Ratio] 27 kg/m2 Dr. Ifeoma Davis MD Work Phone: 1(767)183-388279 [place] [address] 06-03-2025 15:26-0400 Body weight 64.[address] Ifeoma Davis MD Work Phone: 2(746)776-891479 [place] [address] 05-27-2025 19:22-0400 Body temperature 98 [degF] Dr. Ifeoma Davis MD Work Phone: 3(142)982-246779 [place] [address] 05-27-2025 19:22-0400 Diastolic blood pressure 69 mm[Hg] Dr. Ifeoma Davis MD Work Phone: 7(951)922-094679 [place] [address] 05-27-2025 19:22-0400 Heart rate 72 /min Dr. Ifeoma Davis MD Work Phone: 9(558)602-658979 [place] [address] 05-27-2025 19:22-0400 Respiratory rate 16 /min Dr. Ifeoma Davis MD Work Phone: 2(503)791-099079 [place] [address] 05-27-2025 19:22-0400 SaO2% (BldA) [Mass fraction] 100 % Dr. Ifeoma Davis MD Work Phone: 7(008)862-846879 [place] [address] 05-27-2025 19:22-0400 Systolic blood pressure 116 mm[Hg] Dr. Ifeoma Davis MD Work Phone: 4(973)841-493979 [place] [address] 05-27-2025 17:07-0400 Body height 154.[address] Ifeoma Davis MD Work Phone: 0(066)903-237379 [place] [address] 05-27-2025 17:07-0400 Body mass index (BMI) [Ratio] 27.6 kg/m2 Dr. Ifeoma Davis MD Work Phone: 2(585)137-271079 [place] [address] 05-27-2025 17:07-0400 Body weight 66.[address] Ifeoma Davis MD Work Phone: 0(959)401-055779 [place] [address] 04-22-2025 10:29-0400 Body mass index (BMI) [Ratio] 27.7 kg/m2 Ifeoma Davis MD Work Phone: 4(938)569-479380 [place] [address] 04-22-2025 10:29-0400 Body weight 66.5 kg Ifeoma Davis MD Work Phone: 5(661)734-391080 [place] [address] 04-22-2025 10:29-0400 Diastolic blood pressure 79 mm[Hg] Ifeoma Davis MD Work Phone: 6(620)599-745880 [place] [address] 04-22-2025 10:29-0400 Heart rate 79 /min Ifeoma Davis MD Work Phone: [facility] 04-22-2025 10:29-0400 Respiratory rate 16 /min Ifemoa Davis MD Work Phone: [facility] 04-22-2025 10:29-0400 Systolic blood pressure 129 mm[Hg] Ifeoma Davis MD Work Phone: [facility] 04-11-2025 13:09-0400 Body mass index (BMI) [Ratio] 27.53 kg/m2 Aislinn Reyes PA-C Work Phone: [facility] 04-11-2025 13:09-0400 Body temperature 97.2 [degF] Aislinn Reyes PA-C Work Phone: [facility] 04-11-2025 13:09-0400 Body weight 66.1 kg Aislinn Reyes PA-C Work Phone: [facility] 04-11-2025 13:09-0400 Diastolic blood pressure 62 mm[Hg] Aislinn Reyes PA-C Work Phone: [facility] 04-11-2025 13:09-0400 Heart rate 82 /min Aislinn Reyes PA-C Work Phone: [facility] 04-11-2025 13:09-0400 Respiratory rate 20 /min Aislinn Reyes PA-C Work Phone: [facility] 04-11-2025 13:09-0400 SaO2% (BldA) [Mass fraction] 98 % Aislinn Reyes PA-C Work Phone: [facility] 04-11-2025 13:09-0400 Systolic blood pressure 110 mm[Hg] Aislinn Reyes PA-C Work Phone: [facility] 03-24-2025 14:59-0400 Body height 154.9 cm [facility] 1 Work Phone: [facility] 03-24-2025 14:59-0400 Body mass index (BMI) [Ratio] 27.78 kg/m2 [facility] 1 Work Phone: [facility] 03-24-2025 14:59-0400 Body weight 66.68 kg [facility] 1 Work Phone: [facility] 03-24-2025 14:59-0400 Diastolic blood pressure 66 mm[Hg] [facility] 1 Work Phone: [facility] 03-24-2025 14:59-0400 Heart rate 80 /min [facility] 1 Work Phone: [facility] 03-24-2025 14:59-0400 Respiratory rate 18 /min [facility] 1 Work Phone: [facility] 03-24-2025 14:59-0400 SaO2% (BldA) [Mass fraction] 96 % [facility] 1 Work Phone: [facility] 03-24-2025 14:59-0400 Systolic blood pressure 108 mm[Hg] Pacc 1 Work Phone: [facility] 12-29-2024 15:08-0400 Body height 154.9 cm Ifeoma Davis MD Work Phone: [facility] 12-29-2024 15:08-0400 Body mass index (BMI) [Ratio] 27.66 kg/m2 Ifeoma Davis MD Work Phone: [facility] 12-29-2024 15:08-0400 Body weight 66.41 kg Ifeoma Davis MD Work Phone: [facility] 12-29-2024 15:08-0400 Diastolic blood pressure 66 mm[Hg] Ifeoma Davis MD Work Phone: [facility] 12-29-2024 15:08-0400 Heart rate 86 /min Ifeoma Davis MD Work Phone: [facility] 12-29-2024 15:08-0400 SaO2% (BldA) [Mass fraction] 97 % Ifeoma Davis MD Work Phone: [facility] 12-29-2024 15:08-0400 Systolic blood pressure 112 mm[Hg] Ifeoma Davis MD Work Phone: [facility] 12-09-2024 13:28-0400 Body height 152.[address] Ifeoma Davis MD Work Phone: [facility] 12-09-2024 13:28-0400 Body mass index (BMI) [Ratio] 29.5 kg/m2 Dr. Ifeoma Davis MD Work Phone: [facility] 12-09-2024 13:28-0400 Body weight 68.[address] Ifeoma Davis MD Work Phone: [facility] 11-24-2024 15:06-0400 Body height 152.[address] Ifeoma Davis MD Work Phone: [facility] 11-03-2024 14:09-0500 Body height 154.9 cm Ifeoma Davis MD Work Phone: [facility] 11-03-2024 14:09-0500 Body mass index (BMI) [Ratio] 29.25 kg/m2 Ifeoma Davis MD Work Phone: [facility] 11-03-2024 14:09-0500 Body weight 70.22 kg Ifeoma Davis MD Work Phone: [facility] 11-03-2024 14:09-0500 Diastolic blood pressure 78 mm[Hg] Ifeoma Davis MD Work Phone: [facility] 11-03-2024 14:09-0500 Heart rate 98 /min Ifeoma Davis MD Work Phone: [facility] 11-03-2024 14:09-0500 SaO2% (BldA) [Mass fraction] 96 % Ifeoma Davis MD Work Phone: [facility] 11-03-2024 14:09-0500 Systolic blood pressure 114 mm[Hg] Ifeoma Davis MD Work Phone: [facility] 10-31-2024 12:58-0500 Body mass index (BMI) [Ratio] 28.74 kg/m2 Chantal Pino APRN.CNP Work Phone: [facility] 10-31-2024 12:58-0500 Body temperature 97.11 [degF] Chantal Alvarez STATION DETECTIVE.[employer]IV[employer] Work Phone: [facility] 10-31-2024 12:58-0500 Body weight 69 kg Chantal Alvarez STATION DETECTIVE.[employer]IV[employer] Work Phone: [facility] 10-31-2024 12:58-0500 Diastolic blood pressure 88 mm[Hg] Chantal Alvarez STATION DETECTIVE.[employer]IV[employer] Work Phone: [facility] 10-31-2024 12:58-0500 Heart rate 97 /min Chantal Alvarez STATION DETECTIVE.CIV[employer] Work Phone: [facility] 10-31-2024 12:58-0500 Respiratory rate 18 /min Chantal Alvarez STATION DETECTIVE.CIV[employer] Work Phone: [facility] 10-31-2024 12:58-0500 SaO2% (BldA) [Mass fraction] 99 % Chantal Alvarez STATION DETECTIVE.CIV[employer] Work Phone: [facility] 10-31-2024 12:58-0500 Systolic blood pressure 141 mm[Hg] Chantal Alvarez STATION DETECTIVE.[employer]IV[employer] Work Phone: [facility] 10-12-2024 15:14-0500 Body mass index (BMI) [Ratio] 29.78 kg/m2 Ifeoma Davis MD Work Phone: [facility] 10-12-2024 15:14-0500 Body temperature 96.91 [degF] Ifeoma Davis MD Work Phone: [facility] 10-12-2024 15:14-0500 Body weight 71.49 kg Ifeoma Davis MD Work Phone: [facility] 10-12-2024 15:14-0500 Diastolic blood pressure 63 mm[Hg] Ifeoma Davis MD Work Phone: [facility] 10-12-2024 15:14-0500 Heart rate 118 /min Ifeoma Davis MD Work Phone: [facility] 10-12-2024 15:14-0500 Respiratory rate 16 /min Ifeoma Davis MD Work Phone: [facility] 10-12-2024 15:14-0500 SaO2% (BldA) [Mass fraction] 99 % Ifeoma Davis MD Work Phone: [facility] 10-12-2024 15:14-0500 Systolic blood pressure 106 mm[Hg] Ifeoma Davis MD Work Phone: [facility] 10-07-2024 18:25-0500 Body mass index (BMI) [Ratio] 30.41 kg/m2 [facility] Zabrina STATION DETECTIVE.CIVIL [employer]INEER [employer] Work Phone: [facility] 10-07-2024 18:25-0500 Body temperature 98.2 [degF] [facility] Zabrina STATION DETECTIVE.[employer]IV[employer] Work Phone: [facility] 10-07-2024 18:25-0500 Body weight 73 kg [facility] Zabrina STATION DETECTIVE.CIV[employer] Work Phone: [facility] 10-07-2024 18:25-0500 Diastolic blood pressure 62 mm[Hg] [facility] Zabrina STATION DETECTIVE.[employer]IV[employer] Work Phone: [facility] 10-07-2024 18:25-0500 Heart rate 103 /min [facility] Zabrina STATION DETECTIVE.[employer]IV[employer] Work Phone: [facility] 10-07-2024 18:25-0500 Respiratory rate 16 /min [facility] Zabrina STATION DETECTIVE.CIV[employer] Work Phone: [facility] 10-07-2024 18:25-0500 SaO2% (BldA) [Mass fraction] 96 % [facility] Zabrina STATION DETECTIVE.[employer]IV[employer] Work Phone: [facility] 10-07-2024 18:25-0500 Systolic blood pressure 124 mm[Hg] Calli Zabrina STATION DETECTIVE.CIV[employer] Work Phone: [facility] 09-29-2024 14:11-0500 Body mass index (BMI) [Ratio] 30.42 kg/m2 Ifeoma Davis MD Work Phone: [facility] 09-29-2024 14:11-0500 Body weight 73.03 kg Ifeoma Davis MD Work Phone: [facility] 09-29-2024 14:11-0500 Diastolic blood pressure 88 mm[Hg] Ifeoma Davis MD Work Phone: [facility] 09-29-2024 14:11-0500 Heart rate 86 /min Ifeoma Davis MD Work Phone: [facility] 09-29-2024 14:11-0500 Respiratory rate 16 /min Ifeoma Davis MD Work Phone: [facility] 09-29-2024 14:11-0500 Systolic blood pressure 138 mm[Hg] fIeoma Davis MD Work Phone: [facility] 09-24-2024 14:43-0500 Body mass index (BMI) [Ratio] 30.27 kg/m2 Michelle Elsy STATION DETECTIVE.CIV[employer] Work Phone: [facility] 09-24-2024 14:43-0500 Body weight 72.67 kg Michelle Elsy STATION DETECTIVE.[employer]IV[employer] Work Phone: [facility] 09-24-2024 14:43-0500 Diastolic blood pressure 81 mm[Hg] Michelle Elsy STATION DETECTIVE.CIVIL [employer]ER [employer] Work Phone: [facility] 09-24-2024 14:43-0500 Heart rate 101 /min Michelle Elsy STATION DETECTIVE.CIV[employer] Work Phone: [facility] 09-24-2024 14:43-0500 SaO2% (BldA) [Mass fraction] 98 % Michelle Elsy STATION DETECTIVE.CIV[employer] Work Phone: [facility] 09-24-2024 14:43-0500 Systolic blood pressure 122 mm[Hg] Michelle Elsy STATION DETECTIVE.CIV[employer] Work Phone: [facility] 09-15-2024 10:09-0500 Body mass index (BMI) [Ratio] 29.85 kg/m2 Destiney Mckeon STATION DETECTIVE.[employer]IV[employer] Work Phone: [facility] 09-15-2024 10:09-0500 Body weight 71.67 kg Destiney Edmond STATION DETECTIVE.CIV[employer] Work Phone: [facility] 09-15-2024 10:09-0500 Diastolic blood pressure 66 mm[Hg] Destiney Helder STATION DETECTIVE.CIV[employer] Work Phone: [facility] 09-15-2024 10:09-0500 Systolic blood pressure 118 mm[Hg] Destiney Helder STATION DETECTIVE.CIV[employer] Work Phone: [facility] 07-08-2024 17:38-0500 Body mass index (BMI) [Ratio] 28.87 kg/m2 Letty Kay STATION DETECTIVE.CIVIL [employer]ER [employer] Work Phone: [facility] 07-08-2024 17:38-0500 Body temperature 98.4 [degF] Letty Kay STATION DETECTIVE.CIVIL [employer]ER [employer] Work Phone: [facility] 07-08-2024 17:38-0500 Body weight 69.3 kg Letty Kay STATION DETECTIVE.CIV[employer] Work Phone: [facility] 07-08-2024 17:38-0500 Diastolic blood pressure 82 mm[Hg] Letty Kay STATION DETECTIVE.CIV[employer] Work Phone: [facility] 07-08-2024 17:38-0500 Heart rate 109 /min Letty Kay STATION DETECTIVE.CIVIL ENG[employer]ER [employer] Work Phone: [facility] 07-08-2024 17:38-0500 Respiratory rate 18 /min Letty Kay STATION DETECTIVE.CIV[employer]ER [employer] Work Phone: [facility] 07-08-2024 17:38-0500 SaO2% (BldA) [Mass fraction] 97 % Letty Kay STATION DETECTIVE.CIV[employer] Work Phone: [facility] 07-08-2024 17:38-0500 Systolic blood pressure 128 mm[Hg] Letty Kay STATION DETECTIVE.CIV[employer] Work Phone: [facility] 04-11-2024 11:57-0400 Body mass index (BMI) [Ratio] 28.78 kg/m2 Krislyn Aberegg PA Work Phone: [facility] 04-11-2024 11:57-0400 Body temperature 97.9 [degF] Krislyn Aberegg PA Work Phone: [facility] 04-11-2024 11:57-0400 Body weight 69.1 kg Krislyn Aberegg PA Work Phone: [facility] 04-11-2024 11:57-0400 Diastolic blood pressure 70 mm[Hg] Krislyn Aberegg PA Work Phone: [facility] 04-11-2024 11:57-0400 Heart rate 92 /min Krislyn Aberegg PA Work Phone: [facility] 04-11-2024 11:57-0400 Respiratory rate 16 /min Krislyn Aberegg PA Work Phone: [facility] 04-11-2024 11:57-0400 SaO2% (BldA) [Mass fraction] 97 % Krislyn Aberegg PA Work Phone: [facility] 04-11-2024 11:57-0400 Systolic blood pressure 122 mm[Hg] Krislyn Aberegg PA Work Phone: [facility] 03-31-2024 12:47-0400 Body height 154.9 cm Ifeoma Davis MD Work Phone: [facility] 03-31-2024 12:47-0400 Body mass index (BMI) [Ratio] 28.34 kg/m2 Ifeoma Davis MD Work Phone: [facility] 03-31-2024 12:47-0400 Body weight 68.04 kg Ifeoma Davis MD Work Phone: [facility] 03-31-2024 12:47-0400 Diastolic blood pressure 70 mm[Hg] Ifeoma Davis MD Work Phone: [facility] 03-31-2024 12:47-0400 Heart rate 80 /min Ifeoma Davis MD Work Phone: [facility] 03-31-2024 12:47-0400 Respiratory rate 16 /min Ifeoma Davis MD Work Phone: [facility] 03-31-2024 12:47-0400 Systolic blood pressure 128 mm[Hg] Ifeoma Davis MD Work Phone: [facility] 12-24-2023 12:58-0400 Body height 151.1 cm Destiney Edmond STATION DETECTIVE.[employer]IV[employer] Work Phone: [facility] 12-24-2023 12:58-0400 Body mass index (BMI) [Ratio] 30.58 kg/m2 Destiney Helder STATION DETECTIVE.CIV[employer]ER [employer] Work Phone: [facility] 12-24-2023 12:58-0400 Body weight 69.85 kg Destiney Helder STATION DETECTIVE.CIV[employer] Work Phone: [facility] 12-24-2023 12:58-0400 Diastolic blood pressure 82 mm[Hg] Destiney Helder STATION DETECTIVE.CIV[employer]ER [employer] Work Phone: [facility] 12-24-2023 12:58-0400 Systolic blood pressure 126 mm[Hg] Destiney Helder STATION DETECTIVE.CIV[employer]ER [employer] Work Phone: [facility] 11-18-2023 10:09-0400 Body temperature 98.29 [degF] Adriana Vidal STATION DETECTIVE.CIVIL [employer]ER [employer] Work Phone: [facility] 11-18-2023 10:09-0400 Body weight 70 kg Adriana Young STATION DETECTIVE.CIVIL [employer]ER [employer] Work Phone: [facility] 11-18-2023 10:09-0400 Diastolic blood pressure 72 mm[Hg] Adriana Young STATION DETECTIVE.CIVIL [employer]ER [employer] Work Phone: [facility] [facility] 11-18-2023 10:09-0400 Heart rate 80 /min Adriana Vidal STATION DETECTIVE.CIVIL ENGINEER LAND DEVELOPMENT Work Phone: [facility] 11-18-2023 10:09-0400 Respiratory rate 18 /min Adriana Vidal STATION DETECTIVE.CIVIL ENGINEER [employer]AND DEVELOPMENT Work Phone: [facility] 11-18-2023 10:09-0400 SaO2% (BldA) [Mass fraction] 96 % Adriana Vidal STATION DETECTIVE.CIVIL ENGINEER LAND DEVELOPMENT Work Phone: [facility] 11-18-2023 10:09-0400 Systolic blood pressure 124 mm[Hg] Adriana Vidal STATION DETECTIVE.CIVIL ENGINEER LAND DEVELOPMENT Work Phone: [facility] 05-30-2023 14:00-0400 Diastolic blood pressure 81 mm[Hg] Andry Connelly MD Work Phone: [facility] 05-30-2023 14:00-0400 Heart rate 81 /min Andry Connelly MD Work Phone: [facility] 05-30-2023 14:00-0400 Respiratory rate 16 /min Andry Connelly MD Work Phone: [facility] 05-30-2023 14:00-0400 SaO2% (BldA) [Mass fraction] 99 % Andry Connelly MD Work Phone: [facility] 05-30-2023 14:00-0400 Systolic blood pressure 126 mm[Hg] Andry Connelly MD Work Phone: [facility] 05-30-2023 13:38-0400 Body temperature 98.1 [degF] Andry Connelly MD Work Phone: [facility] 05-30-2023 12:42-0400 Body height 152.4 cm Andry Connelly MD Work Phone: [facility] 05-30-2023 12:42-0400 Body mass index (BMI) [Ratio] 30.66 kg/m2 Andry Connelly MD Work Phone: [facility] 05-30-2023 12:42-0400 Body weight 71.22 kg Andry Connelly MD Work Phone: [facility] 05-21-2023 11:22-0400 Body height 149.9 cm Virginia Denbow PA-C Work Phone: [facility] 05-21-2023 11:22-0400 Body temperature 98.4 [degF] Virginia Denbow PA-C Work Phone: [facility] 05-21-2023 11:22-0400 Body weight 73.94 kg Virginia Denbow PA-C Work Phone: [facility] 05-21-2023 11:22-0400 Diastolic blood pressure 68 mm[Hg] Virginia Denbow PA-C Work Phone: [facility] 05-21-2023 11:22-0400 Heart rate 98 /min Virginia Denbow PA-C Work Phone: [facility] 05-21-2023 11:22-0400 Respiratory rate 12 /min Virginia Denbow PA-C Work Phone: [facility] 05-21-2023 11:22-0400 SaO2% (BldA) [Mass fraction] 99 % Virginia Denbow PA-C Work Phone: [facility] 05-21-2023 11:22-0400 Systolic blood pressure 124 mm[Hg] Virginia Denbow PA-C Work Phone: [facility] 04-30-2023 12:59-0400 Body height 149.9 cm Cande Kalka PA-C Work Phone: [facility] 04-30-2023 12:59-0400 Body weight 73.03 kg Cande Kalka PA-C Work Phone: [facility] 04-30-2023 12:59-0400 Diastolic blood pressure 72 mm[Hg] Cande Kalka PA-C Work Phone: [facility] 04-30-2023 12:59-0400 Heart rate 94 /min Cande Kalka PA-C Work Phone: [facility] 04-30-2023 12:59-0400 Systolic blood pressure 122 mm[Hg] Cande Pozo PA-C Work Phone: [facility] 10-16-2022 12:58-0500 Body height 152.4 cm Ifeoma Davis MD Work Phone: [facility] 10-16-2022 12:58-0500 Body temperature 97.81 [degF] Ifeoma Davis MD Work Phone: [facility] 10-16-2022 12:58-0500 Body weight 71.67 kg Ifeoma Davis MD Work Phone: [facility] 10-16-2022 12:58-0500 Diastolic blood pressure 70 mm[Hg] Ifeoma Davis MD Work Phone: [facility] 10-16-2022 12:58-0500 Heart rate 102 /min Ifeoma Davis MD Work Phone: [facility] 10-16-2022 12:58-0500 Respiratory rate 12 /min Ifeoma Davis MD Work Phone: [facility] 10-16-2022 12:58-0500 SaO2% (BldA) [Mass fraction] 97 % Ifeoma Davis MD Work Phone: [facility] 10-16-2022 12:58-0500 Systolic blood pressure 120 mm[Hg] Ifeoma Davis MD Work Phone: [facility] 06-25-2022 11:48-0400 Diastolic blood pressure 80 mm[Hg] Jonathon Eugene MD Work Phone: [facility] 06-25-2022 11:48-0400 Respiratory rate 16 /min Jonathon Eugene MD Work Phone: [facility] 06-25-2022 11:48-0400 SaO2% (BldA) [Mass fraction] 100 % Jonathon Eugene MD Work Phone: [facility] 06-25-2022 11:48-0400 Systolic blood pressure 141 mm[Hg] Jonathon Eugene MD Work Phone: [facility] 06-25-2022 11:36-0400 Body temperature 97.3 [degF] Jonathon Eugene MD Work Phone: [facility] 06-25-2022 09:44-0400 Body height 152.4 cm Jonathon Eugene MD Work Phone: [facility] 06-25-2022 09:44-0400 Body weight 70.31 kg Jonathon Eugene MD Work Phone: [facility] 06-25-2022 09:44-0400 Heart rate 92 /min Jonathon Eugene MD Work Phone: [facility] 06-20-2022 12:40-0400 Body height 152.4 cm Charlene Grossman MD Work Phone: [facility] 06-20-2022 12:40-0400 Body weight 70.31 kg Charlene Grossman MD Work Phone: [facility] 06-20-2022 12:40-0400 Diastolic blood pressure 70 mm[Hg] Charlene Grossman MD Work Phone: [facility] 06-20-2022 12:40-0400 Heart rate 88 /min Charlene Grossman MD Work Phone: [facility] 06-20-2022 12:40-0400 Respiratory rate 18 /min Charlene Grossman MD Work Phone: [facility] 06-20-2022 12:40-0400 SaO2% (BldA) [Mass fraction] 98 % Charlene Grossman MD Work Phone: [facility] 06-20-2022 12:40-0400 Systolic blood pressure 125 mm[Hg] Charlene Grossman MD Work Phone: [facility] 12-25-2021 13:03-0400 Body height 152.4 cm Ifeoma Davis MD Work Phone: [facility] 12-25-2021 13:03-0400 Body temperature 98.49 [degF] Ifeoma Davis MD Work Phone: [facility] 12-25-2021 13:03-0400 Body weight 73.03 kg Ifeoma Davis MD Work Phone: [facility] 12-25-2021 13:03-0400 Diastolic blood pressure 76 mm[Hg] Ifeoma Davis MD Work Phone: [facility] 12-25-2021 13:03-0400 Heart rate 100 /min Ifeoma Davis MD Work Phone: [facility] 12-25-2021 13:03-0400 Respiratory rate 12 /min Ifeoma Davis MD Work Phone: [facility] 12-25-2021 13:03-0400 SaO2% (BldA) [Mass fraction] 97 % Ifeoma Davis MD Work Phone: [facility] 12-25-2021 13:03-0400 Systolic blood pressure 132 mm[Hg] Ifeoma Davis MD Work Phone: [facility] 12-04-2021 13:11-0400 Body height 152.4 cm Destiney Edmond STATION DETECTIVE.CIVIL ENGINEER [employer]AND DEVELOPMENT Work Phone: [facility] 12-04-2021 13:11-0400 Body weight 74.39 kg Destiney Helder STATION DETECTIVE.CIVIL ENGINEER [employer]AND DEVELOPMENT Work Phone: [facility] 12-04-2021 13:11-0400 Diastolic blood pressure 72 mm[Hg] Destiney Edmond STATION DETECTIVE.CIVIL ENGINEER [employer]AND DEVELOPMENT Work Phone: [facility] 12-04-2021 13:11-0400 Systolic blood pressure 120 mm[Hg] Destiney Edmond STATION DETECTIVE.CIVIL ENGINEER [employer]AND DEVELOPMENT Work Phone: [facility] Encounters Encounter Date Encounter Type Care Provider Facility Start: 07-06-2025 End: 07-06-2025 ambulatory IFEOMA DAVIS Facility:[facility] Start: 07-05-2025 End: 07-05-2025 Emergency department patient visit BRII ALBERTS Facility:[facility] Start: 06-30-2025 End: 07-01-2025 Evaluation and management of inpatient TERESO DIAZ Facility:[facility] Start: 06-29-2025 End: 06-29-2025 Emergency department patient visit Renato Hanley Facility:[facility] Start: 06-23-2025 End: 06-23-2025 Emergency department patient visit Geovanni Sorto Facility:[facility] Start: 06-21-2025 End: 06-21-2025 ambulatory [facility] Facility:[facility] Start: 06-17-2025 End: 06-17-2025 Emergency department patient visit Dr. Patti Piña DO -Emergency Department Work Phone: Start: 06-17-2025 Non-patient / Non-visit [facility]. Vas[facility] Work Phone: Start: 06-17-2025 Encounter for other preprocedural examination [facility] Start: 06-14-2025 End: 06-14-2025 ambulatory [facility] Facility:[facility] Start: 06-11-2025 ambulatory Ifeoma [facility] Facility:[facility] Start: 06-04-2025 End: 06-04-[address] Phillip Pozo DO -[facility] Work Phone: Start: 06-04-2025 End: 06-04-[address] Ifeoma Davis MD Work Phone: -[facility] Start: 06-03-2025 End: 06-03-[address] Michael Cameron MD -[facility] Work Phone: Start: 06-03-2025 End: 06-03-[address] Ifeoma Davis MD Work Phone: -[facility] Start: 05-27-2025 End: 05-27-2025 Emergency department patient visit Dr. Juan Manuel Turpin MD -Emergency Department Work Phone: Start: 05-27-2025 Patient encounter procedure IFEOMA GANTA [facility] Start: 05-27-2025 End: 05-27-2025 ambulatory [facility] Facility:[facility] Start: 05-17-2025 End: 05-17-2025 Telephone encounter Aislinn Reyes PA-C Work Phone: Pulmonary Medicine Comment on above: Refill Request Start: 05-07-2025 End: 05-07-[address] Ifeoma Davis MD Work Phone: -[facility] Start: 05-07-2025 End: 05-07-[address] Michael Cameron MD -[facility] Work Phone: Start: 05-07-2025 End: 05-07-2025 ambulatory [facility] Facility:[facility] Start: 04-28-2025 End: 04-29-2025 Telephone encounter Ifeoma Davis MD Work Phone: [facility] [place] Start: 04-22-2025 End: 04-22-2025 Telephone encounter Ifeoma Davis MD Work Phone: [facility] [place] Comment on above: Medication Problem Start: 04-22-2025 End: 04-22-2025 ambulatory [facility] Facility:[facility] Start: 04-22-2025 End: 04-22-2025 Office outpatient visit 25 minutes Ifeoma Davis MD Work Phone: [facility] [place] Comment on above: Intertrigo (Primary Dx); Status post glaucoma surgery; Primary hypertension; DAYSI (obstructive sleep apnea); PXE (pseudoxanthoma elasticum); Poison boo dermatitis Start: 04-20-2025 End: 04-20-2025 ambulatory [facility] Facility:[facility] Start: 04-20-2025 End: 04-20-2025 Postop follow up visit related to original px Cynthia Ramos MD Work Phone: [facility] Comment on above: Follow-up examinatio n after eye surgery (Primary Dx); Secondary glaucoma, indeterminate stage, bilateral Start: 04-16-2025 End: 04-16-[address] Edgar Beltran MD -[facility] Start: 04-16-2025 End: 04-16-[address] Ifeoma Davis MD Work Phone: [facility] Start: 04-11-2025 End: 04-11-2025 Patient encounter procedure Aislinn Reyes PA-C Work Phone: [facility] [place] Comment on above: Viral URI with cough (Primary Dx) Start: 04-11-2025 End: 04-11-2025 ambulatory AISLINN REYES Facility:[facility] Start: 04-03-2025 End: 04-03-2025 Telephone encounter Shy Meier MD Work Phone: Ophthalmology Start: 04-02-2025 End: 04-02-2025 ambulatory [facility] Facility:[facility] Start: 04-02-2025 End: 04-02-2025 Patient encounter procedure Adriana Lund MD Work Phone: Ophthalmology Comment on above: Follow-up examinatio n after eye surgery (Primary Dx) Start: 03-31-2025 End: 03-31-2025 Telephone encounter Ifeoma Davis MD Work Phone: [facility] [place] Comment on above: Medication Problem Refill Request Start: 03-30-2025 End: 03-31-2025 Telephone encounter Adriana Lund MD Work Phone: Ophthalmology Comment on above: Tearing OS Start: 03-26-2025 End: 03-26-2025 Telephone encounter Brittaney Mckeon MD Work Phone: Ophthalmology Start: 03-25-2025 End: 03-25-2025 ambulatory [facility] Facility:[facility] Start: 03-24-2025 Encounter for other preprocedural examination IFEOMA DAVIS [facility] Start: 03-24-2025 End: 03-24-2025 ambulatory [facility] Facility:[facility] Start: 03-24-2025 End: 03-24-2025 Admission to establishment [facility] Work Phone: Pre Anesthesia Start: 03-24-2025 End: 03-24-2025 Anesthesia consultation [facility] [place] [facility] Work Phone: Pre Anesthesia Comment on [...] examination done [facility] [place] [facility] Work Phone: [facility] Work Phone: Start: 03-24-2025 End: 03-24-2025 Telephone encounter Janet Martinez MD Work Phone: Ophthalmology Comment on above: Patient Question Start: 03-23-2025 End: 03-23-2025 Telephone encounter Cynthia Ramos MD Work Phone: [facility] Comment on above: Appointment (Urgent issue.) Start: 03-23-2025 End: 03-23-2025 Office consultation new/estab patient 60 min Janet Martinez MD Work Phone: Ophthalmology Comment on above: Leaking of conjuncti rah drainage bleb (Primary Dx) Start: 03-23-2025 End: 03-23-2025 [facility] Start: 03-16-2025 End: 03-19-2025 ambulatory Ifeoma Davis MD Work Phone: Internal Medicine [place] [id number] Start: 03-10-2025 End: 03-10-[address] Edgar Beltran MD -[facility] Start: 03-10-2025 End: 03-10-[address] Ifeoma Davis MD Work Phone: -[facility] Start: 03-02-2025 End: 03-02-2025 Nursing evaluation of patient and report Mi Nurse Work Phone: [facility] [place] Comment on above: Immunization due (Pr imary Dx) Start: 03-02-2025 End: 03-02-2025 [facility] Facility:[facility] Start: 03-01-2025 End: 03-02-2025 Telephone encounter Ifeoma Davis MD Work Phone: [facility] [place] Comment on above: Orders Start: 02-25-2025 End: 02-25-2025 Telephone encounter Ifeoma Davis MD Work Phone: [facility] [place] Comment on above: TDAP order Start: 01-12-2025 End: 01-13-2025 Telephone encounter Michelle Chin APRN.CIVIL ENGINEER LAND DEVELOPMENT Work Phone: Neurology Comment on above: DME Order Request Start: 12-30-2024 End: 12-30-2024 Telephone encounter Michelle Chin APRN.CIVIL ENGINEER [employer]AND DEVELOPMENT Work Phone: Neurology Comment on above: Results Start: 12-29-2024 End: 12-29-2024 Office outpatient visit 25 minutes Ifeoma Davis MD Work Phone: [facility] [place] Comment on above: Primary hypertension (Primary Dx); Depression, unspecified depression type; Trigger finger, unspecified finger, unspecified laterality; Hypokalemia; Anxiety; Legally blind; Sleep apnea, unspecified type Start: 12-29-2024 End: 12-29-2024 [facility] Facility:[facility] Start: 12-23-2024 End: 12-23-2024 Refill Ifeoma Davis MD Work Phone: [facility] [place] Comment on above: Refill Request Start: 12-17-2024 End: 12-17-2024 Follow-up encounter Michelle Chin APRN.CIVIL ENGINEER [employer]AND DEVELOPMENT Work Phone: Neurology Comment on above: Results Start: 12-09-2024 End: 12-09-[address] Phillip Pozo DO -[facility] Work Phone: Start: 12-09-2024 End: 12-09-2024 ambulatory [facility] Start: 12-07-2024 End: 12-08-2024 Telephone encounter Ifeoma Davis MD Work Phone: Internal Medicine [place] Comment on above: Patient Question Start: 12-01-2024 End: 12-07-2024 Telephone encounter Michelle Chin STATION DETECTIVE.CIVIL ENGINEER [employer]AND DEVELOPMENT Work Phone: Neurology Comment on above: Results Start: 11-24-2024 End: 11-24-[address] Ifeoma Davis MD Work Phone: [facility] Work Phone: Start: 11-24-2024 End: 11-24-2024 Patient encounter procedure Allie Prakash -[facility] [place] Work Phone: Start: 11-24-2024 End: 11-24-[address] Edgar Beltran MD -[facility] Start: 11-24-2024 End: 11-24-2024 ambulatory [facility] Start: 11-24-2024 End: 11-24-2024 ambulatory [facility] Facility:[facility] Start: 11-20-2024 End: 11-20-2024 Telephone encounter David Anna APRN.CIVIL ENGINEER [employer]AND DEVELOPMENT Work Phone: Internal Medicine [place] Comment on above: Results, Lab Start: 11-19-2024 End: 11-19-2024 ambulatory [facility] Facility:[facility] Start: 11-19-2024 End: 11-19-2024 Patient encounter procedure David Anna APRN.CIVIL ENGINEER [employer]AND DEVELOPMENT Work Phone: Internal Medicine [place] Comment on above: Hypertension, unspec ified type (Primary Dx); Dry mouth; Depression, unspecified depression type; Anxiety; Other fatigue; DAYSI (obstructive sleep apnea) Start: 11-17-2024 End: 12-18-2024 Patient encounter procedure [facility] Comment on above: Snoring; Excessive daytime sleepiness; Non-restorative sleep; PLMD (periodic limb movement disorder); Primary hypertension Start: 11-17-2024 End: 11-17-2024 ambulatory [facility]IM[facility] AMBROCIO [facility] Start: 11-05-2024 End: 11-05-2024 Follow-up encounter Ifeoma Davis MD Work Phone: Geriatrics Start: 11-03-2024 End: 11-03-2024 [facility] Facility:[facility] Start: 11-03-2024 End: 11-03-2024 Office outpatient visit 25 minutes Ifeoma Davis MD Work Phone: Internal Medicine [place] Comment on above: Vitamin D deficiency (Primary Dx); Dry mouth; Vitamin B12 deficiency; Iron deficiency; Other fatigue Start: 11-02-2024 End: 11-02-2024 Follow-up encounter Britta ESCUDERO Work Phone: [facility] Start: 10-31-2024 End: 10-31-2024 ambulatory [facility] Facility:[facility] Start: 10-31-2024 End: 10-31-2024 Patient encounter procedure Chantal Pino APRN.CNP Work Phone: [facility] Comment on above: Dysuria (Primary Dx) ; Acute lower UTI Start: 10-22-2024 End: 12-22-2024 Follow-up encounter Destiney Mckeon APRN.CNP Work Phone: OB/Gynecology Start: 10-21-2024 End: 10-21-2024 [facility] Facility:[facility] Start: 10-21-2024 Encounter for gynecological examination (general) (routine) without abnormal [facility] Start: 10-21-2024 End: 10-21-2024 [facility] Start: 10-21-2024 End: 10-21-2024 Subsequent hospital visit by physician Screen Mammo [facility] Comment on above: Encounter for gyneco logical examination (general) (routine) without abnormal findings [Z01.419] Start: 10-13-2024 End: 10-13-2024 [facility] Facility[facility] Start: 10-13-2024 End: 10-13-2024 Office outpatient visit 15 minutes Cynthia Ramos MD Work Phone: [facility] Comment on above: Secondary glaucoma, indeterminate stage, bilateral (Primary Dx); Angioid streaks of macula; Pseudoxanthoma elasticum Start: 10-12-2024 End: 10-12-2024 [facility] Facility[facility] Start: 10-12-2024 End: 10-12-2024 Office outpatient visit 25 minutes Ifeoma Davis MD Work Phone: [facility] [place] Comment on above: Anxiety (Primary Dx) ; Screening for depression; Encounter for screening examination for other mental health and behavioral disorders; Dry mouth; Insomnia, unspecified type; Current moderate episode of major depressive disorder without prior episode (HCC) Start: 10-07-2024 End: 10-07-2024 [facility] Facility[facility] Start: 10-07-2024 End: 10-07-2024 Patient encounter procedure Calli Duvall APRN.CIVIL ENGINEER [employer]AND DEVELOPMENT Work Phone: [facility] [place] Comment on above: Memory impairment (P rimary Dx); Dry mouth; Depression, unspecified depression type Start: 10-07-2024 End: 10-12-2024 Telephone encounter Ifeoma Davis MD Work Phone: [facility] [place] Comment on above: Future Appointment Patient Question Start: 09-29-2024 End: 09-29-2024 [facility] Facility[facility] Start: 09-29-2024 End: 09-29-2024 Office outpatient visit 25 minutes Ifeoma Davis MD Work Phone: Internal Medicine [place] Comment on above: Depression, unspecif ied depression type (Primary Dx); Encounter for immunization; Insomnia, unspecified type Start: 09-25-2024 End: 04-10-2025 Telephone encounter Michelle Chin APRN.CNP Work Phone: Neurology Comment on above: Food Service Team Member - O ther Start: 09-24-2024 End: 09-24-2024 Patient encounter procedure Michelle Chin APRN.CNP Work Phone: Neurology Comment on above: Excessive daytime sl eepiness (Primary Dx); Non-restorative sleep Start: 09-24-2024 End: 09-24-2024 [facility] Facility[facility] Start: 09-15-2024 End: 09-15-2024 [facility] Start: 09-15-2024 End: 09-15-2024 Patient encounter procedure Destiney Mckeon APRN.CIVIL ENGINEER [employer]AND DEVELOPMENT Work Phone: OB/Gynecology Comment on above: Vasomotor symptoms d ue to menopause (Primary Dx) Start: 09-08-2024 End: 09-08-2024 Refill Ifeoma Davis MD Work Phone: Internal Medicine [place] Comment on above: Refill Request Start: 08-12-2024 End: 04-13-2025 Telephone encounter Ifeoma Davis MD Work Phone: Internal Medicine [place] Comment on above: Patient Update Start: 08-10-2024 End: 08-10-2024 ambulatory Akanksha Ross MA [facility] Start: 08-10-2024 End: 08-10-2024 Patient encounter procedure Akanksha Ross MA [facility] Comment on above: Population Health Na vigation Outreach ([facility]) Start: 07-27-2024 End: 08-05-2024 Telephone encounter Ifeoma Davis MD Work Phone: Family Medicine [place] Comment on above: Results Start: 07-22-2024 End: 07-22-2024 ambulatory [facility] Facility:[facility] Start: 07-15-2024 End: 07-15-2024 ambulatory [facility] Facility:[facility] Start: 07-10-2024 End: 07-10-2024 Telephone encounter Ifeoma Davis MD Work Phone: Internal Medicine [place] Comment on above: Fax Request Start: 07-09-2024 End: 07-09-2024 Telephone encounter Adriana Vidal APRN.CIVIL ENGINEER [employer]AND DEVELOPMENT Work Phone: [facility] Comment on above: Results Start: 07-08-2024 End: 07-08-2024 ambulatory [facility] Facility:[facility] Start: 07-08-2024 End: 07-08-2024 Patient encounter procedure eLtty Kay APRN.CIVIL ENGINEER LAND DEVELOPMENT Work Phone: [facility] Comment on above: Close exposure to [place] VID-19 virus (Primary Dx) Start: 07-07-2024 End: 07-09-2024 Refill Ifeoma Davsi MD Work Phone: [facility] Comment on above: Refill Request Orders Start: 06-29-2024 End: 06-30-2024 Refill Ifeoma Davis MD Work Phone: [facility] [place] Comment on above: Refill Request Start: 06-15-2024 End: 06-15-2024 ambulatory Chana Bridges MA [facility] Start: 06-15-2024 End: 06-15-2024 [facility] Comment on above: Population Health Na vigation Outreach (Med Adherence) Start: 06-12-2024 End: 06-12-2024 ambulatory Akanksha Ross [facility] Start: 06-12-2024 End: 06-12-2024 [facility] on above: Population Health Na vigation Outreach ([facility] [place] [facility] Start: 05-29-2024 End: 05-29-2024 ambulatory Eileen Quinteros [facility] Start: 05-29-2024 End: 05-29-2024 Patient encounter procedure [facility] Comment on above: Population Health Na vigation Outreach (Med adherence ) Start: 05-14-2024 End: 06-29-2024 Telephone encounter Ifeoma Davis MD Work Phone: Internal [facility] Comment on above: Patient Question Start: 05-06-2024 End: 05-11-2024 Telephone encounter Cynthia Ramos MD Work Phone: [facility] J[place] Comment on above: Letter Start: 05-01-2024 End: 05-06-2024 Telephone encounter Cynthia Ramos MD Work Phone: [facility] Comment on above: Letter Start: 2024 End: 2024 Refill Ifeoma Davis MD Work Phone: [facility] [place] Comment on above: Refill Request Start: 04-13-2024 Telephone encounter Cynthia cheatham MD Work Phone: [facility] Comment on above: Patient Update Start: 04-11-2024 End: 04-11-2024 Patient encounter procedure Britta ESCUDERO Work Phone: [facility] Comment on above: Allergic contact roman matitis due to plants, except food (Primary Dx) Start: 04-02-2024 Telephone encounter Ifeoma deluna MD Work Phone: [facility] [place] Comment on above: Results Start: 03-31-2024 End: [...] Start: 03-31-2024 End: 03-31-2024 Patient encounter procedure Ifeoam Davis MD Work Phone: [facility] Start: 03-17-2024 ambulatory Ifeoma Sampson Work Phone: Internal [place] [id number] Start: 02-18-2024 End: 02-18-2024 Office outpatient visit 15 minutes Cynthia Ramos MD Work Phone: [facility] Comment on above: Secondary glaucoma, indeterminate stage, bilateral (Primary Dx); Pseudoxanthoma elasticum; Angioid streaks of macula; Pseudophakia of both eyes; Legally blind Start: 01-01-2024 Refill David Anna APRN, .CNP Work Phone: [facility] [place] Comment on above: Refill Request Start: 12-25-2023 Telephone encounter David Anna APRN.CNP Work Phone: [facility] [place] Comment on above: Medication Request Start: 12-24-2023 End: 12-24-2023 Patient encounter procedure Destiney Mckeon APRN.CIVIL ENGINEER [employer]AND [employer]ELOPMENT Work Phone: OB/Gynecology Comment on above: Encounter for gyneco logical examination (general) (routine) without abnormal findings (Primary Dx); Encounter for screening for human papillomavirus (HPV); Pap smear for cervical cancer screening; Encounter for screening mammogram for breast cancer Start: 12-24-2023 End: 12-24-2023 Patient encounter status Destiney Kamaracalf MURTAZA.CIVIL ENGINEER [employer]AND DEVELOPMENT Work Phone: [facility] Start: 12-04-2023 End: 12-04-[address] Ifeoma Davis Work Phone: [facility] Work Phone: Start: 12-04-2023 End: 12-04-[address] Ifeoma Davis Work Phone: [facility] Work Phone: Start: 11-18-2023 End: 11-18-2023 Patient encounter procedure Adriana King MURTAZA.CIVIL ENGINEER [employer]AND DEVELOPMENT Work Phone: [facility] Comment on above: Bacterial sinusitis (Primary Dx) Start: 11-13-2023 Refill Ifeoma Sampson Work Phone: Internal [facility] [place] Comment on above: Refill Request Start: 11-06-2023 End: 11-06-[address] Ifeoma Davis Work Phone: [facility] Work Phone: Start: 10-25-2023 ambulatory Alessandra Rojas [facility]olai Comment on above: Population Health Na vigation Outreach (Bradly AWV) Start: 10-11-2023 Documentation procedure Mammog lien Coordinator [facility] Start: 10-11-2023 Letter encounter Mammography Coordinator [facility] Department Start: 10-10-2023 End: 10-10-2023 Subsequent hospital visit by physician Screen Mammo [facility] Comment on above: Encounter for screen ing mammogram for breast cancer [Z12.31] Start: 10-08-2023 Telephone encounter Ifeoma deluna MD Work Phone: [facility] [place] Comment on above: Patient Update Start: 10-04-2023 ambulatory Mary Brad [facility] Comment on above: Population Health Na vigation Outreach (Shaniko Care Gaps ) Start: 07-23-2023 Refill Virginia Avalos PA-C Work Phone: [facility] [place] Comment on above: Refill Request Start: 06-25-2023 Refill Ifeoma Sampson Work Phone: [address] [place] [address] Comment on above: Erroneous encounter- disregard Start: [...] Placard Renewal Start: 05-03-2023 Refill Calli Anna STATION DETECTIVE .CIVIL ENGINEER [employer]AND DEVELOPMENT Work Phone: [facility] [place] Comment on above: Refill Request Start: 04-30-2023 End: 04-30-2023 Patient encounter procedure Cande Pozo PA-C Work Phone: G[facility] [place] Comment on above: Gastroesophageal ref lux disease, unspecified whether esophagitis present (Primary Dx); Change in bowel habits Start: 04-25-2023 End: 04-25-2023 Patient encounter procedure Massimo Roberts MD Work Phone: Orthopaedics Comment on above: Numbness and tinglin g in right hand (Primary Dx) Start: 04-09-2023 Telephone encounter Ifeoma deluna MD Work Phone: [facility] [place] Comment on above: requesting lab order Start: 02-19-2023 End: 02-19-2023 Office outpatient visit 15 minutes Cynthia Ramos MD Work Phone: [facility] Comment on above: Secondary glaucoma, indeterminate stage, bilateral (Primary Dx); Pseudoxanthoma elasticum; Pseudophakia of both eyes Start: 01-27-2023 Refill David Anna APRN, .CNP Work Phone: Internal [facility] Comment on above: Refill Request Start: 01-01-2023 End: 01-01-2023 ambulatory [facility] Work Phone: Start: 01-01-2023 End: 01-01-2023 Discharged Recurring [facility]-Occupational Therapy Start: 12-12-2022 Refill Ifeoma Sampson Work Phone: [facility] [place] Comment on above: Refill Request (SEE RX NOTES) Start: 12-04-2022 End: 12-04-2022 Postop follow up visit related to original px Cynthia Ramos MD Work Phone: [facility] Comment on above: Follow-up exam (Prim terra Dx); Vitreous prolapse of left eye Start: 11-22-2022 End: 11-22-2022 Postop follow up visit related to original px Cynthia Ramos MD Work Phone: [facility] Comment on above: Follow-up exam (Prim terra Dx) Start: 11-19-2022 End: 11-19-2022 Patient encounter procedure Taina Fan PA-C Work Phone: Orthopaedics Comment on above: Trigger ring finger of right hand (Primary Dx); Trigger middle finger of left hand Follow-up exam (Prim terra Dx) Start: 11-19-2022 Telephone encounter Henrik Chen MD Work Phone: [facility] Comment on above: Eye Problem Patient Question; Nu rse To Address Start: 11-16-2022 End: 11-16-2022 Patient encounter procedure Cynthia Ramos MD Work Phone: [facility] Comment on above: Follow-up exam (Prim terra Dx) Start: 11-13-2022 Telephone encounter Cynthia cheatham MD Work Phone: [facility] Comment on above: Appointment Start: 11-07-2022 End: 11-07-2022 ambulatory MASSIMO ROBERTS Facility:[facility] Start: 11-05-2022 Telephone encounter Massimo monterroso MD Work Phone: Orthopaedics Comment on above: Patient Question Start: 11-01-2022 Telephone encounter Massimo monterroso MD Work Phone: Orthopaedics Comment on above: Appointment (Siena ding regarding surgery) Start: 10-31-2022 End: 10-31-2022 ambulatory WOLFCORINA MASON Facility:[id number] Start: 10-31-2022 End: 10-31-2022 ambulatory Michelle Perez OT/L [facility] [place] Comment on above: Blindness right eye category 3, blindness left eye category 4 (Primary Dx); Complaints of difficulty with reading; Difficulty with household tasks; Impaired mobility and personal care; Personal care impairment Start: 10-29-2022 End: 10-29-2022 Patient encounter procedure [facility] Work Phone: [facility] Comment on above: Nuclear sclerotic ca taract of left eye (Primary Dx) Start: 10-26-2022 Telephone encounter Cynthia cheatham MD Work Phone: [facility] Comment on above: Returning Patient's Call (ascan) Start: 10-23-2022 End: 10-23-2022 Subsequent hospital visit by physician [facility] Work Phone: Radiology Comment on above: Abnormal mammogram [ R92.8] Start: 10-17-2022 End: 10-17-2022 ambulatory WOLF MASON Facility:[id number] Start: 10-17-2022 End: 10-17-2022 ambulatory Michelle Perez OT/L [facility] [place] Comment on above: Difficulty with hous ehold tasks (Primary Dx); Blindness right eye category 3, blindness left eye category 4; Impaired mobility and personal care; Personal care impairment; Complaints of difficulty with reading Start: 10-16-2022 End: 10-16-2022 Patient encounter procedure Ifeoma Davis MD Work Phone: Internal [facility] [place] Comment on above: Gastroesophageal ref lux disease with esophagitis, unspecified whether hemorrhage (Primary Dx); Pre-operative clearance; Trigger finger, unspecified finger, unspecified laterality; Primary hypertension; Mixed hyperlipidemia; PAD (peripheral artery disease) ([facility]); PXE (pseudoxanthoma elasticum); Hot flashes Start: 10-16-2022 End: 10-16-2022 Preoperative state Ifeoma Davis MD Work Phone: [facility] [place] Start: 10-09-2022 Telephone encounter Liliya medrano MD Work Phone: Mammography Comment on above: Mammogram Result Favio l Back Start: 10-09-2022 End: 10-09-2022 Subsequent hospital visit by physician Judy [facility] [place] Work Phone: Radiology Start: 10-02-2022 Telephone encounter Ifeoma deluna MD Work Phone: [facility] [place] Comment on above: Medication Request Start: 10-01-2022 End: 10-01-2022 Orders Only Massimo Roberts MD Work Phone: Orthopaedics Comment on above: Pain in both hands ( Primary Dx) Schedule Surgery Trigger ring finger of right hand (Primary Dx); Trigger middle finger of left hand Pain in both hands [ M79.641, M79.642] Start: 09-28-2022 Documentation procedure Mammog lien Coordinator [facility] Start: 09-28-2022 Letter encounter Mammography Coordinator [facility] Department Start: 09-28-2022 Telephone encounter Destiney davis APRN.CNP Work Phone: OB/Gynecology Comment on above: Orders Start: 09-27-2022 ambulatory Ifeoma Sampson Work Phone: [facility] [place] Comment on above: Upcoming visit on Start: 09-27-2022 Patient encounter procedure Ifeoma Davis MD Work Phone: [facility] [place] Start: 09-27-2022 End: 09-27-2022 Subsequent hospital visit by physician Screen Mammo [facility] Comment on above: Encounter for screen ing mammogram for breast cancer [Z12.31] Start: 09-25-2022 End: 09-25-2022 Patient encounter procedure Cynthia Ramos MD Work Phone: [facility] Comment on above: Nuclear senile catar act of left eye (Primary Dx); Primary open angle glaucoma (POAG) of left eye, severe stage Start: 09-19-2022 End: 09-19-2022 ambulatory WOLF MASON Facility:[id number] Start: 09-19-2022 Telephone encounter Wolf mclean OD Work Phone: [facility] Comment on above: Follow Up Phone Call Start: 09-19-2022 End: 09-19-2022 ambulatory Michelle Perez OT/L [facility] [place] Comment on above: Blindness right eye category 3, blindness left eye category 4 (Primary Dx); Difficulty with household tasks; Impaired mobility and personal care; Personal care impairment; Complaints of difficulty with reading Start: 08-16-2022 End: 08-16-2022 Patient encounter procedure Wolf Mason OD Work Phone: [facility] Comment on above: Blindness right eye [...] eye (Primary Dx) Start: 07-23-2022 Refill Destiney Helderstephanie FONSECA Work Phone: OB/Gynecology Comment on above: Refill Request Medication Problem ( flonase) Start: 07-04-2022 Telephone encounter Ifeoma deluna MD Work Phone: Internal [facility] [place] Comment on above: Patient Update Start: 07-03-2022 [...] Telephone encounter Jonathon graves MD Work Phone: [facility] Comment on above: Food Service Team Member - O ther Cough Start: 06-26-2022 End: 06-26-2022 Patient encounter procedure Jonathon Eugene MD Work Phone: [facility] Comment on above: Pseudophakia (Primar y Dx) Start: 06-25-2022 ambulatory JONATHON EUGENE Facility: [facility] Start: 06-25-2022 End: 06-25-2022 Subsequent hospital visit by physician Jonathon Eugene MD Work Phone: [facility] Comment on above: 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 [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]Photopsia [H53.19] Start: 06-22-2022 Refill Jonathon Eugene MD Work Phone: [facility] Comment on above: Refill Request (Pre- op drops) Medication Problem Start: 06-20-2022 Telephone encounter Jonathon graves MD Work Phone: [facility] Comment on above: Appointment Start: 06-20-2022 End: 06-20-2022 Patient encounter procedure Charlene Grossman MD Work Phone: [facility] [place] Comment on above: PXE (pseudoxanthoma elasticum) (Primary Dx); Obesity, Class I, BMI 30-34.9 Start: 05-11-2022 Refill Ifeoma Sampson Work Phone: [facility] Comment on above: Refill Request Patient Question (Re quest medication not on med list please) Start: 05-03-2022 End: 05-03-2022 Patient encounter procedure Massimo Roberts MD Work Phone: Orthopaedics Comment on above: Pain in both hands ( Primary Dx); Trigger middle finger of left hand; Trigger ring finger of right hand Start: 04-25-2022 Telephone encounter Jonathon graves MD Work Phone: [facility] Comment on above: Preparations For Sharath [...] encounter procedure Cynthia Ramos MD Work Phone: [facility] Comment on above: Primary open angle g laucoma (POAG) of both eyes, indeterminate stage (Primary Dx); Corneal dellen of left eye; Nuclear senile cataract of right eye Start: 03-20-2022 ambulatory Ifeoma Sampson Work Phone: [facility] [place] Start: 03-14-2022 End: 03-14-2022 Patient encounter procedure Jonathon Eugene MD Work Phone: Ophthalmology Comment on above: Photopsia (Primary D x); Primary open angle glaucoma (POAG) of both eyes, indeterminate stage; Combined form of age-related cataract, both eyes; Marginal corneal ulcer of left eye; Angioid streaks of macula Start: 03-02-2022 Telephone encounter Jonathon graves MD Work Phone: [facility] Comment on above: Lab & Test Results Start: 02-27-2022 End: 02-27-2022 Patient encounter procedure Jonathon Eugene MD Work Phone: [facility] Comment on above: Photopsia (Primary D x); Primary open angle glaucoma (POAG) of both eyes, indeterminate stage; Combined form of age-related cataract, both eyes; Marginal corneal ulcer of left eye Start: 02-10-2022 Telephone encounter Alise Dejesus APRN.CIVIL ENGINEER LAND DEVELOPMENT Work Phone: [facility] Comment on above: Results Start: 02-09-2022 Refill Ifeoma Sampson Work Phone: Internal [facility] [place] Comment on above: Refill Request Start: 02-07-2022 Telephone encounter Jonathon graves MD Work Phone: [facility] Comment on above: Medication Problem Start: 01-12-2022 Refill Destiney Mckeon APRN.CIVIL ENGINEER [employer]AND DEVELOPMENT Work Phone: OB/Gynecology Comment on above: Refill Request Start: 12-25-2021 End: 12-25-2021 Patient encounter procedure Ifeoma Davis MD Work Phone: Internal [facility] [place] Comment on above: PXE (pseudoxanthoma elasticum) (Primary Dx); Vertigo; Memory deficits; New daily persistent headache; Chronic mixed headache syndrome Start: 12-19-2021 End: 12-19-2021 Patient encounter procedure Cynthia Ramos MD Work Phone: [facility] Comment on above: Follow-up exam (Prim terra Dx); Photopsia; 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 Start: 12-07-2021 Telephone encounter Ifeoma deluna MD Work Phone: [facility] [place] Comment on above: Patient Question Start: 12-04-2021 End: 12-04-2021 Patient encounter procedure Destiney Kamaracalf STATION DETECTIVE.CIVIL ENGINEER LAND DEVELOPMENT Work Phone: OB/Gynecology Comment on above: Encounter for gyneco logical examination (general) (routine) without abnormal findings (Primary Dx); Encounter for screening mammogram for breast cancer Start: 12-04-2021 End: 12-04-2021 Patient encounter status Destiney Mckeon STATION DETECTIVE.CIVIL ENGINEER [employer]AND DEVELOPMENT Work Phone: OB/Gynecology Start: 11-28-2021 End: 11-28-2021 Patient encounter procedure Cynthia Ramos MD Work Phone: [facility] Comment on above: Follow-up exam (Prim terra Dx) Procedures Date Procedure Procedure Detail Performing Clinician Start: 06-29-2025 Urnls dip stick/tablet reagent auto microscopy Dr. Ifeoma Davis MD Work Phone: Start: 06-29-[address] Saray Davis MD Work Phone: Start: 06-23-[address] Saray Davis MD Work Phone: Start: 06-17-2025 CT angiography of head and neck Dr. Rogelio Davis MD Work Phone: Start: 06-17-2025 CT of head without contrast Dr. Ifeoma alcala MD Work Phone: Start: 06-04-2025 Plain x-ray of pelvis and lower extremity Dr. Ifeoma Davis MD Work Phone: Start: 05-07-2025 MRI of lumbar spine Dr. [...] Work Phone: Start: 11-17-2024 Polysomnogram Michelle Chin APRN.CIVIL ENGINEER LAND DEVELOPMENT Work Phone: Start: 10-31-2024 Urnls dip stick/tablet rgnt auto w/o microscopy [facility] Provider Start: 10-13-2024 Computerized ophthalmic imaging retina Cynthia Ramos MD Work Phone: Start: 10-12-2024 Adult depression screening assessment Michelle Chin APRN.CIVIL ENGINEER [employer]AND DEVELOPMENT Work Phone: Start: 03-27-2024 Lipid 1996 panel [...] uni real time with image limited Destiney Helder STATION DETECTIVE.CIVIL ENGINEER LAND DEVELOPMENT Work Phone: Start: 10-23-2022 Digital breast tomosynthesis unilateral Destiney Edmond STATION DETECTIVE.CIVIL ENGINEER [employer]AND DEVELOPMENT Work Phone: Start: 10-16-2022 Ecg routine ecg w/least 12 lds i&r only [facility] Start: 10-15-2022 Lipid 1996 panel - Serum or Plasma Massimo Roberts MD Work Phone: Start: 10-09-2022 Radex shoulder complete minimum 2 views [facility] Provider Start: 10-01-2022 Radex hand minimum 3 views Massimo levin MD Work Phone: Start: 09-27-2022 End: 09-27-2022 Mammography Destiney Edmond STATION DETECTIVE.CIVIL ENGINEER [employer]AND DEVELOPMENT Work Phone: Start: 06-29-2022 Computerized ophthalmic imaging [...] DTaP,Tdap,Td Vaccine (2 - Td or Tdap) [facility] Start: 03-27-2029 Lipid panel Lipid Screening [facility] Start: 12-23-2028 Screening for malignant neoplasm of cervix [facility] Start: 05-30-2028 Colonoscopy Colonoscopy [facility] Start: 05-30-2028 Colorectal Cancer Screening Colorectal Cancer Screening [facility] Start: 05-30-2028 Screening for malignant neoplasm of colon [facility] Start: 03-24-2028 Diabetes Screening Diabetes Screening [facility] Start: 11-20-2027 Diabetes Screening Diabetes Screening [facility] Start: 10-15-2027 Lipid 1996 panel - Serum or Plasma Lipid Screening [facility] Start: 10-15-2027 Lipid panel Lipid Screening [facility] Start: 10-15-2027 LIPID SCREEN LIPID SCREEN [facility] Start: 03-27-2027 Diabetes Screening Diabetes Screening [facility] Start: 08-15-2026 LIPID SCREEN LIPID SCREEN [facility] Start: 05-21-2026 Diabetes Screening Diabetes Screening [facility] Start: 05-04-2026 End: 10-11-2026 VISUAL FIELD 24-2 OU (BOTH EYES) VISUAL FIELD 24-2 OU (BOTH EYES) [facility] Imaging Routine Secondary glaucoma, indeterminate stage, bilateral Expected: 05/04/2026, Expires: 10/11/2026 [facility] Work Phone: Comment on above: Expected: 05/04/2026, Expires: Start: 04-22-2026 Annual PCP Team Chronic Disease Visit Annual PCP Team Chronic Disease Visit [facility] Start: 12-29-2025 Annual PCP Team Chronic Disease Visit Annual PCP Team Chronic Disease Visit [facility] Start: 12-29-2025 BP Controlled (<130/80) BP Controlled (<130/80) [facility] Start: 11-19-2025 Annual PCP Team Chronic Disease Visit Annual PCP Team Chronic Disease Visit [facility] Start: 11-19-2025 BP Controlled (<130/80) BP Controlled (<130/80) [facility] Start: 11-03-2025 Annual PCP Team Chronic Disease Visit Annual PCP Team Chronic Disease Visit [facility] Start: 11-03-2025 BP Controlled (<130/80) BP Controlled (<130/80) [facility] Start: 10-21-2025 Screening for malignant neoplasm of breast Mammogram Screening [facility] Start: 10-15-2025 DIABETES SCREEN DIABETES SCREEN [facility] Start: 10-12-2025 Annual PCP Team Chronic Disease Visit Annual PCP Team Chronic Disease Visit [facility] Start: 10-12-2025 Anxiety Screening Anxiety Screening [facility] Start: 10-12-2025 BP Controlled (<130/80) BP Controlled (<130/80) [facility] Start: 10-12-2025 Covid-19 Vaccine () Covid-19 Vaccine () [facility] Comment on above: Postponed from 05/03/2024 (Declined at t his time) Start: 10-12-2025 Depression Screening Depression Screening [facility] Start: 10-07-2025 Annual PCP Team Chronic Disease Visit Annual PCP Team Chronic Disease Visit [facility] Start: 10-07-2025 BP Controlled (<130/80) BP Controlled (<130/80) [facility] Start: 09-29-2025 Annual PCP Team Chronic Disease Visit Annual PCP Team Chronic Disease Visit [facility] Start: 09-15-2025 BP Controlled (<130/80) BP Controlled (<130/80) [facility] Start: 07-23-2025 End: 07-23-2025 Patient encounter procedure 07/23/2025 2:00 PM EST Office Visit [facility] [place] [address] [place], [place] [id number] Ifeoma Davis MD [address] [place], [place] [address] 3 month F/U [facility] [place] Comment on above: 3 month F/U Start: 06-29-2025 SARS-CoV-2, Influenza & RSV (PCR) SARS-CoV-2, Influenza & RSV (PCR) [facility] Start: 06-29-2025 [facility] Start: 06-29-2025 Plain chest X-ray Chest 1 View (Portable) [facility] Start: 06-29-2025 End: 06-29-2025 Emergency department patient visit Departed Emergency -Emergency Department Work Phone: Start: 06-23-2025 [facility] Start: 06-23-2025 CT angiography of head and neck CTA Head AND Neck W/ Contrast [facility] Start: 06-23-2025 CT of head without contrast Brain/Head without Contrast [facility] Start: 06-23-2025 End: 06-23-2025 Emergency department patient visit Departed Emergency -Emergency Department Work Phone: Start: 06-21-2025 MRI of lower extremity Extremity Lower without Contra [facility] Start: 06-21-2025 Patient encounter procedure Registered Clinical -Cat Scan [facility] Work Phone: Start: 06-09-2025 End: 06-09-2025 Patient encounter procedure 06/09/2025 12:30 PM EDT Office Visit [facility] Op[facility] [address] [address] Adriana Lund MD [address] [place] [address] Diagn[facility] [address] [address] 10 WEEK OUTCOME Ophthalmology Comment on above: 10 WEEK OUTCOME Start: 06-04-2025 Plain x-ray of pelvis and lower extremity HIP, UNI W/ Pelvis 2-3 Views [facility] Start: 06-04-2025 XR Pelvis and Hip Views [facility] Start: 05-27-2025 [facility] Start: 05-27-2025 End: 05-27-2025 Emergency department patient visit Departed Emergency -Emergency Department Work Phone: Start: 05-27-2025 End: 05-27-2025 Patient encounter procedure 05/27/2025 9:20 AM EDT Office Visit Internal [facility] [place] [address] [place], [place] [address] Ifeoma Davis MD [address] [place], [place] [id number] Wellness [facility] [place] Comment on above: Wellness Start: 05-18-2025 End: 05-18-2025 Patient encounter procedure 05/18/2025 11:00 AM EDT Office Visit [facility] [address] [place] [address] Cynthia Ramos MD [address] [place] [address] [id number] 4 week VaTa [facility] Comment on above: 4 week VaTa Start: 05-12-2025 End: 05-12-2025 Patient encounter procedure 05/12/2025 11:00 AM EDT Office Visit [facility] Op[facility]mology [address] [address] Adriana Lund MD [address] [place] [id number] Diagnostics, [facility] [address] [address] 6 WEEK OUTCOME Ophthalmology Comment on above: 6 WEEK OUTCOME Start: 05-03-2025 DIABETES SCREEN DIABETES SCREEN [facility] Start: 05-03-2025 Influenza vaccination [facility] Start: 04-28-2025 End: 04-28-2025 Patient encounter procedure 04/28/2025 11:00 AM EDT Office Visit [facility] [address] [address] Adriana Lund MD [address] [place] [id number] Diagnostics, [facility] [address] [address] 3 WEEK POST OP Ophthalmology Comment on above: 3 WEEK POST OP Start: 04-22-2025 End: 04-22-2025 Patient encounter procedure 04/22/2025 10:20 AM EDT Office Visit Internal Medicine [facility] [address] [place] [address] Ifeoma Davis MD [address] [place] [address] 3 month follow up [facility] Comment on above: 3 month follow up Start: 04-20-2025 End: 04-20-2025 Patient encounter procedure 04/20/2025 9:30 AM EDT Office Visit [facility] [address] [place], [place] [address] Cynthia Ramos MD [address] [place] [address] [id number] SP 6 months refraction HVF 24-2 large size V [facility] Comment on above: SP 6 months refraction HVF 24-2 large si ze V Start: 04-16-2025 X-ray of lumbosacral spine L/S Spine Bending Flex/Ext [facility] Start: 04-16-2025 XR Spine Lumbar and Sacrum Views [facility] Start: 04-12-2025 Subsequent hospital visit by physician 04/12/2025 Hospital Encounter Ophthalmology [address] [address] Janet Martinez MD [address] [place] [address] 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, 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] Ophthalmology Comment on above: Leaking of conjunctival drainage bleb [H 59.89, T81.31XA] Start: 04-11-2025 BP Controlled (<130/80) BP Controlled (<130/80) [facility] Start: 04-06-2025 End: 04-06-2025 Patient encounter procedure 04/06/2025 2:15 PM EDT Office Visit [facility] [address] [address] Janet Martinez MD [address] [place] [address] Diagnostics, [facility] [address] [address] Michelle 04/06 for follow up Ophthalmology Comment on above: Michelle 04/06 for follow up Start: 04-02-2025 End: 04-02-2025 Patient encounter procedure Ophthalmology Comment on above: 1 WEEK POST OP Start: 03-31-2025 Annual PCP Team Chronic Disease Visit Annual PCP Team Chronic Disease Visit [facility] Start: 03-31-2025 BP Controlled (<130/80) BP Controlled (<130/80) [facility] in Start: 03-30-2025 End: 03-30-2025 Patient encounter procedure 03/30/2025 2:00 PM EDT Office Visit Internal Medicine [place] [id number] [place] [address] Ifeoma Davis MD [address] [place] [address] 3 month follow up [facility] Comment on above: 3 month follow up Start: 03-26-2025 End: 03-26-2025 Patient encounter procedure 03/26/2025 8:15 AM EDT Office Visit [facility] [address] [place] [id number] Adriana Lund MD [address] [place] [id number] 1 DAY POST OP bleb leak repair OS Ophthalmology Comment on above: 1 DAY POST OP bleb leak repair OS Start: 03-25-2025 End: 03-25-2025 Admission to same day surgery center 03/25/2025 12:01 PM EDT - 03/25/2025 12:59 PM EDT Surgery Ophthalmology [address] [place] [id number] Adriana Lund MD [address] [place] [id number] 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 Ophthalmology Comment on above: REV OR 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 WOUND EYE ANTERI OR SEGMENT MAJOR Start: 03-25-2025 End: 03-25-2025 Anesthesia consultation 03/25/2025 12:01 PM EDT Anesthesia Event Ophthalmology [address] [address] Marquita Aj SRNA Ophthalmology Start: 03-25-2025 Subsequent hospital visit by physician 03/25/2025 12:01 PM EDT Hospital Encounter Ophthalmology [address] [address] Adriana Lund MD [address] [place] [id number] 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, T81.31XA] Ophthalmology Comment on above: Leaking of conjunctival drainage bleb [H 59.89, T81.31XA] Start: 03-25-2025 End: 03-25-2025 Revj/rpr oprative wound anterior segment [facility] Start: 03-24-2025 End: 03-24-2025 Patient encounter procedure Neurology Comment on above: 31-90 day follow up Start: 03-16-2025 End: 06-15-2025 Lipid 1996 panel - Serum or Plasma LIPID PANEL, FASTING Lab Routine Mixed hyperlipidemia Expected: 03/16/2025, Expires: 06/15/2025 [facility] Work Phone: Comment on above: Expected: 03/16/2025, Expires: Start: 03-10-2025 X-ray of lumbar spine, two or three views Lumbar Spine 2 or 3 Views [facility] Start: 03-10-2025 XR Lumbar spine 2 or 3 Views [facility] Start: 03-02-2025 End: 03-02-2025 Nursing evaluation of patient and report 03/02/2025 12:45 PM EDT Nurse Visit Family Medicine [place] [address] [place] [address] Nurse, Co [address] [place] [address] [facility] [place] Comment on above: Tdap Start: 03-01-2025 Influenza vaccination Influenza Vaccine (#1) [facility] Comment on above: Postponed from 05/03/2024 (Declined at t his time) Start: 12-29-2024 End: 12-29-2024 Patient encounter procedure 12/29/2024 3:00 PM EDT Office Visit Internal Medicine [place] [address] [place] [address] Ifeoma Davis MD [address] [place] [address] 6 week follow up [facility] [place] Comment on above: 6 week follow up Start: 11-27-2024 End: 02-26-2025 Basic metabolic 2000 panel - Serum or Plasma BASIC METABOLIC PANEL Lab Routine Hypokalemia Expected: 11/27/2024 (Approximate), Expires: 02/26/2025 [facility] Work Phone: Comment on above: Expected: 11/27/2024 (Approximate), Expi res: 02/26/2025 Start: 11-19-2024 End: 02-18-2025 Basic metabolic 2000 panel - Serum or Plasma [facility] Work Phone: Comment on above: Expected: 11/19/2024, Expires: Start: 11-19-2024 End: 11-19-2024 Patient encounter procedure 11/19/2024 1:00 PM EDT Office Visit Internal Medicine [facility] [address] [place], [place] [id number] David Anna APRN.CIVIL [employer]ER [employer] [address] [place] [address] 2 wk follow up [facility] Comment on above: 2 wk follow up Start: 11-17-2024 End: 11-17-2024 Patient encounter procedure 11/17/2024 9:00 PM EDT Office Visit [facility] [address] [id number] Snoring [R06.83]; Excessive daytime sleepiness [G47.19]; Non-restorative sleep [G47.8]; PLMD (periodic limb movement disorder) [G47.61]; Primary hypertension [I10] [facility] Comment on above: Snoring [R06.83]; Excessive daytime slee piness [G47.19]; Non-restorative sleep [G47.8]; PLMD (periodic limb movement disorder) [G47.61]; Primary hypertension [I10] Start: 11-17-2024 BP Controlled (<130/80) BP Controlled (<130/80) [facility] in Start: 11-03-2024 End: 02-02-2025 25-hydroxyvitamin D3 [Mass/volume] in Serum or Plasma [facility] Comment on above: Expected: 11/03/2024, Expires: Start: 11-03-2024 End: 02-02-2025 Cobalamin (Vitamin B12) [Mass/volume] in Serum or Plasma [facility] Comment on above: Expected: 11/03/2024, Expires: Start: 11-03-2024 End: 02-02-2025 Ferritin [Mass/volume] in Serum or Plasma [facility] Comment on above: Expected: 11/03/2024, Expires: Start: 11-03-2024 End: 02-02-2025 Iron and Iron binding capacity panel - Serum or Plasma [facility] Work Phone: Comment on above: Expected: 11/03/2024, Expires: Start: 11-03-2024 End: 11-03-2024 Patient encounter procedure 11/03/2024 2:00 PM EST Office Visit Internal Medicine [facility] [address] [place], [place] [phone] Ifeoma Davis MD [address] [place] [address] 1 month follow up [facility] Comment on above: 1 month follow up Start: 11-03-2024 End: 02-02-2025 Thyrotropin [Units/volume] in Serum or Plasma [facility] Comment on above: Expected: 11/03/2024, Expires: Start: 11-03-2024 End: 02-02-2025 Thyroxine (T4) free [Mass/volume] in Serum or Plasma [facility] Comment on above: Expected: 11/03/2024, Expires: Start: 10-13-2024 End: 10-13-2024 Patient encounter procedure 10/13/2024 10:15 AM EST Office Visit [facility] [address] [place] [address] Cynthia Ramos MD [address] [place], [place] [address] SP 6 months VaTa and mac OCT [facility] Comment on above: SP 6 months VaTa and mac OCT Start: 10-12-2024 End: 10-12-2024 Patient encounter procedure 10/12/2024 3:00 PM EST Office Visit Internal Medicine [place] [address] [place], [place] [id number] Ifeoma Davis MD [address] [place] [address] follow up increase memory loss. decline in adls/ gait [facility] Comment on above: follow up increase memory loss. decline in adls/ gait Start: 10-10-2024 Screening for malignant neoplasm of breast Mammogram Screening [facility] Start: 10-07-2024 End: 10-07-2024 Patient encounter procedure 10/07/2024 2:00 PM EST Office Visit Neurology [address] [place] [address] Michelle Chin APRN.CIVIL [employer]INEER [employer] [address] [place] [address] DAYSI (obstructive sleep apnea) [G47.33] Neurology Comment on above: DAYSI (obstructive sleep apnea) [G47.33] Start: 09-29-2024 End: 09-29-2024 Patient encounter procedure [facility] Comment on above: 6 mo follow up; routine 6 mo follow up; rout ine - HTN focus [place] Start: 09-27-2024 Annual PCP Team Chronic Disease Visit Annual PCP Team Chronic Disease Visit [facility] Start: 09-24-2024 End: 09-24-2024 Patient encounter procedure 09/24/2024 3:00 PM EST Office Visit Neurology [address] [place] [address] Michelle Chin APRN.CIVIL [employer] [address] [place] [address] F/U Neurology Comment on above: F/U Start: 09-02-2024 Medicare Advantage Annual Wellness Visit Medicare Advantage Annual Wellness Visit [facility] Start: 08-18-2024 End: 08-18-2024 Patient encounter procedure 08/18/2024 12:45 PM EST Office Visit [facility] [address] [place], [place] [id number] Cynthia Ramos MD [address] [place] [address] SP 6 months VaTa and mac OCT [facility] Comment on above: SP 6 months VaTa and mac OCT Start: 08-15-2024 DIABETES SCREEN DIABETES SCREEN [facility] Start: 08-13-2024 End: 08-13-2024 Patient encounter procedure 08/13/2024 1:00 PM EST Office Visit Neurology [address] [place] [address] Michelle Chin APRN.CIVIL [employer] [address] [place] [address] DAYSI (obstructive sleep apnea) [G47.33] Neurology Comment on above: DAYSI (obstructive sleep apnea) [G47.33] Start: 07-23-2024 End: 07-23-2024 Patient encounter procedure 07/23/2024 11:20 AM EST Office Visit Orthopaedics [address] [place] [address] Massimo Roberts MD [address] [place] [address] rt wrist discuss surgery Orthopaedics Comment on above: rt wrist discuss surgery Start: 06-29-2024 HPV TESTING HPV TESTING [facility] Start: 06-29-2024 PAP TESTING PAP TESTING [facility] Start: 06-29-2024 Screening for malignant neoplasm of cervix [facility] Start: 06-22-2024 Colonoscopy COLONOSCOPY [facility] Start: 06-22-2024 COLORECTAL CANCER SCREENING COLORECTAL CANCER SCREENING [facility] Start: 06-18-2024 End: 06-18-2024 Patient encounter procedure 06/18/2024 12:50 PM EDT Appointment [facility] [address] [place] [address] Encounter for screening mammogram for malignant neoplasm of breast [Z12.31] Mammogram Comment on above: Encounter for screening mammogram for ma lignant neoplasm of breast [Z12.31] Start: 06-04-2024 End: 06-04-2024 Patient encounter procedure 06/04/2024 12:30 PM EDT Office Visit Vasculary Surgery [address] [place] [address] 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] Vasculary Surgery Comment on above: 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] Start: 05-21-2024 Annual PCP Team Chronic Disease Visit Annual PCP Team Chronic Disease Visit [facility] Start: 05-21-2024 BP Controlled (<130/80) BP Controlled (<130/80) [facility] Start: 05-03-2024 Covid-19 Vaccine () Covid-19 Vaccine () [facility] Start: 05-03-2024 Covid-19 Vaccine () Covid-19 Vaccine () [facility] Start: 05-03-2024 Influenza vaccination [facility] Start: 04-30-2024 BP CONTROLLED (<130/80) BP CONTROLLED (<130/80) [facility] Start: 03-31-2024 End: 06-30-2024 Hepatitis C virus Ab [Presence] in Serum [facility] Work Phone: Comment on above: Expected: 03/31/2024, Expires: Start: 03-31-2024 End: 06-30-2024 HIV 1+2 Ab [Presence] in Serum or Plasma by Immunoassay [facility] Comment on above: Expected: 03/31/2024, Expires: Start: 03-31-2024 End: 03-31-2024 Patient encounter procedure [facility] Comment on above: physical physical - AWV due Start: 03-17-2024 End: 06-16-2024 Basic metabolic 2000 panel - Serum or Plasma BASIC METABOLIC PANEL Lab Routine Hypertension Expected: 03/17/2024, Expires: 06/16/2024 [facility] Work Phone: Comment on above: Expected: 03/17/2024, Expires: Start: 03-17-2024 End: 06-16-2024 CBC panel - Blood by Automated count COMPLETE BLOOD COUNT Lab Routine Medication management Expected: 03/17/2024, Expires: 06/16/2024 [facility] Comment on above: Expected: 03/17/2024, Expires: Start: 03-17-2024 End: 06-16-2024 Lipid 1996 panel - Serum or Plasma LIPID PANEL BASIC Lab Routine Mixed hyperlipidemia Expected: 03/17/2024, Expires: 06/16/2024 [facility] Comment on above: Expected: 03/17/2024, Expires: Start: 02-18-2024 End: 02-18-2024 Patient encounter procedure 02/18/2024 12:30 PM EDT Office Visit OPHT [facility] [address] [place], [place] [address] Cynthia Ramos MD [address] [place] [address] 6m follow up [facility] Comment on above: 6m follow up Start: 12-11-2023 BP CONTROLLED (<130/80) BP CONTROLLED (<130/80) [facility] Start: 10-16-2023 ANNUAL PCP TEAM CHRONIC DISEASE VISIT ANNUAL PCP TEAM CHRONIC DISEASE VISIT [facility] Start: 10-16-2023 BP CONTROLLED (<130/80) BP CONTROLLED (<130/80) [facility] Start: 09-27-2023 Mammography [facility] Start: 09-27-2023 Screening for malignant neoplasm of breast Mammogram Screening [facility] Start: 09-02-2023 Behavioral Health Screening Behavioral Health Screening [facility] Start: 09-02-2023 Depression Assessment Depression Assessment [facility] Start: 06-25-2023 BP CONTROLLED (<130/80) BP CONTROLLED (<130/80) [facility] Start: 06-20-2023 BP CONTROLLED (<130/80) BP CONTROLLED (<130/80) [facility] Start: 06-04-2023 ANNUAL PCP TEAM CHRONIC DISEASE VISIT ANNUAL PCP TEAM CHRONIC DISEASE VISIT [facility] Start: 05-03-2023 Covid-19 Vaccine () Covid-19 Vaccine () [facility] Start: 05-03-2023 Influenza vaccination [facility] Start: 02-09-2023 BP CONTROLLED (<130/80) BP CONTROLLED (<130/80) [facility] Start: 12-25-2022 ANNUAL PCP TEAM CHRONIC DISEASE VISIT ANNUAL PCP TEAM CHRONIC DISEASE VISIT [facility] Start: 12-04-2022 BP CONTROLLED (<130/80) BP CONTROLLED (<130/80) [facility] Start: 10-23-2022 ANNUAL PCP TEAM CHRONIC DISEASE VISIT ANNUAL PCP TEAM CHRONIC DISEASE VISIT [facility] Start: 10-16-2022 End: 12-16-2022 Follitropin [Units/volume] in Serum or Plasma FSH BLD Lab Routine Hot flashes Expected: 10/16/2022, Expires: 12/16/2022 [facility] Work Phone: Comment on above: Expected: 10/16/2022, Expires: 3 Start: 09-27-2022 End: 11-27-2022 CBC W Auto Differential panel - Blood CBC + DIFF Lab Routine Annual physical exam Expected: 09/27/2022, Expires: 11/27/2022 [facility] Work Phone: Comment on above: Expected: 09/27/2022, Expires: 3 Start: 09-27-2022 End: 11-27-2022 Comprehensive metabolic 2000 panel - Serum or Plasma COMP METABOLIC PANEL Lab Routine Annual physical exam Expected: 09/27/2022, Expires: 11/27/2022 [facility] Work Phone: Comment on above: Expected: 09/27/2022, Expires: 3 Start: 09-27-2022 End: 11-27-2022 Lipid 1996 panel - Serum or Plasma LIPID PANEL BASIC Lab Routine Annual physical exam Expected: 09/27/2022, Expires: 11/27/2022 [facility] Work Phone: Comment on above: Expected: 09/27/2022, Expires: 3 Start: 09-27-2022 End: 11-27-2022 Thyrotropin [Units/volume] in Serum or Plasma TSH BLD Lab Routine Annual physical exam Expected: 09/27/2022, Expires: 11/27/2022 [facility] Work Phone: Comment on above: Expected: 09/27/2022, Expires: 3 Start: 09-02-2022 DEPRESSION ASSESSMENT DEPRESSION ASSESSMENT [facility] Start: 08-21-2022 Mammography MAMMOGRAM [facility] Start: 06-27-2022 End: 06-20-2023 Echocardiography ECHO Cardiology Routine PXE (pseudoxanthoma elasticum) Expected: 06/27/2022, Expires: 06/20/2023 [facility] Work Phone: Comment on above: Expected: 06/27/2022, Expires: 3 Start: 05-03-2022 Influenza vaccination [facility] Start: 03-20-2022 End: 05-20-2022 CBC panel - Blood by Automated count CBC Lab Routine Medication management Expected: 03/20/2022, Expires: 05/20/2022 [facility] Work Phone: Comment on above: Expected: 03/20/2022, Expires: 2 Start: 03-20-2022 End: 05-20-2022 Hemoglobin A1c in Blood HGB A1C Lab Routine Medication management Expected: 03/20/2022, Expires: 05/20/2022 [facility] Work Phone: Comment on above: Expected: 03/20/2022, Expires: 2 Start: 03-20-2022 End: 05-20-2022 SCHEDULE LAB TESTING SCHEDULE LAB TESTING Lab Routine Expected: 03/20/2022, Expires: 05/20/2022 [facility] Work Phone: Comment on above: Expected: 03/20/2022, Expires: 2 Start: 02-27-2022 End: 04-29-2022 Herpes simplex virus+Varicella zoster virus DNA [Presence] in Unspecified specimen by SUKUMAR with probe detection HSV 1,2/VZV AMP MOLECULAR DETECT Lab Routine Marginal corneal ulcer of left eye Expected: 02/27/2022, Expires: 04/29/2022 [facility] Work Phone: Comment on above: Expected: 02/27/2022, Expires: 2 Start: 02-27-2022 End: 04-29-2022 Nuclear Ab [Presence] in Serum by Immunoassay LOGA PANEL BLOOD SCRN Lab Routine Marginal corneal ulcer of left eye Expected: 02/27/2022, Expires: 04/29/2022 [facility] Work Phone: Comment on above: Expected: 02/27/2022, Expires: 2 Start: 09-02-2021 DEPRESSION ASSESSMENT DEPRESSION ASSESSMENT [facility] Start: 07-28-2019 Adult depression screening assessment DEPRESSION SCREENING [facility] Start: 2019 Pneumococcal Vaccine: 50+ (1 of 1 - PCV) Pneumococcal Vaccine: 50+ (1 of 1 - PCV) [facility] Start: 2019 SHINGRIX VACCINE (1 of 2) SHINGRIX VACCINE (1 of 2) [facility] Start: 2014 COLOGUARD (FIT-DNA) COLOGUARD (FIT-DNA) [facility] Start: [address] COLONOGRAPHY [facility] Start: 2014 FECAL OCCULT BLOOD FECAL OCCULT BLOOD [facility] Start: 2014 Screening for malignant neoplasm of colon [facility] Start: 2014 SIGMOIDOSCOPY SIGMOIDOSCOPY [facility] Start: 1988 Hepatitis B Vaccine (1 of 3 - 19+ 3-dose series) Hepatitis B Vaccine (1 of 3 - 19+ 3-dose series) [facility] Start: 1988 SHINGRIX VACCINE (1 of 2) SHINGRIX VACCINE (1 of 2) [facility] Start: 1988 Urine microalbumin profile [facility] Start: 1987 Anxiety Screening Anxiety Screening [facility] Start: 1987 BP CONTROLLED (<130/80) BP CONTROLLED (<130/80) [facility] Start: 1987 Depression Screening Depression Screening [facility] Start: 1987 HEPATITIS C SCREENING HEPATITIS C SCREENING [facility] Start: 1987 Hepatitis C screening Hepatitis C Screening [facility] Start: 1987 HIV SCREENING HIV SCREENING [facility] Start: 1987 HIV screening HIV Screening [facility] Start: 1981 COVID-19 VACCINE (1) COVID-19 VACCINE (1) [facility] Start: 1975 PNEUMOCOCCAL (1 - PCV) PNEUMOCOCCAL (1 - PCV) [facility] Start: 1974 COVID-19 VACCINE (#1) COVID-19 VACCINE (#1) [facility] Start: 1969 COVID-19 VACCINE (#1) COVID-19 VACCINE (#1) [facility] Start: 1969 HEPATITIS B (1 of 3 - 3-dose series) HEPATITIS B (1 of 3 - 3-dose series) [facility] Start: 1969 Hepatitis B Vaccine (1 of 3 - 3-dose series) Hepatitis B Vaccine (1 of 3 - 3-dose series) [facility] Bacteria identified in Urine by Culture BACTERIAL CULTURE, URINE Microbiology Routine Dysuria Ordered: 10/31/2024 [facility] Work Phone: Comment on above: Ordered: 10/31/2024 End: 04-30-2024 COLONOSCOPY DIAGNOSTIC COLONOSCOPY DIAGNOSTIC Endoscopy Routine Change in bowel habits 1 Occurrences starting 04/30/2023 until 04/30/2024 [facility] Work Phone: Comment on above: 1 Occurrences starting 04/30/2023 until 04/30/2024 CORNEAL TOPOGRAPHY A TLAS OU (BOTH EYES) CORNEAL TOPOGRAPHY ATLAS OU (BOTH EYES) [facility] Imaging Routine Nuclear sclerotic cataract of left eye 10/29/2022 1:13 PM EST [facility] Work Phone: CORNEAL TOPOGRAPHY PENTACAM OU (BOTH EYES) CORNEAL TOPOGRAPHY PENTACAM OU (BOTH EYES) [facility] Imaging Routine Nuclear sclerotic cataract of left eye 10/29/2022 1:12 PM EST [facility] Work Phone: COVID & INFLUENZA A/ B & RSV PCR, ROUTINE COVID & INFLUENZA A/B & RSV PCR, ROUTINE Microbiology Routine Close exposure to COVID-19 virus Ordered: 07/08/2024 [facility] Work Phone: Comment on above: Ordered: 07/08/2024 End: 07-12-2025 DBT Breast - bilateral screening [facility] SCREENING W LILLY Radiology Routine Encounter for screening mammogram for malignant neoplasm of breast 1 Occurrences starting 06/12/2024 until 07/12/2025 [facility] Work Phone: Comment on above: 1 Occurrences starting 06/12/2024 until 07/12/2025 End: 10-28-2023 Diagnostic mammography computer-aided detcj uni [facility] DIAGNOSTIC RT Radiology Routine Abnormal mammogram 1 Occurrences starting 09/28/2022 until 10/28/2023 [facility] Work Phone: Comment on above: 1 Occurrences starting 09/28/2022 until 10/28/2023 ECG B/O W INTERP (ME D OFFICE) ECG B/O W INTERP (MED OFFICE) ECG Routine PXE (pseudoxanthoma elasticum) Ordered: 06/20/2022 [facility] Work Phone: Comment on above: Ordered: 06/20/2022 End: 10-16-2023 ECG COMPLETE ECG COMPLETE ECG Routine Gastroesophageal reflux disease with esophagitis, unspecified whether hemorrhage 1 Occurrences starting 10/16/2022 until 10/16/2023 [facility] Work Phone: Comment on above: 1 Occurrences starting 10/16/2022 until 10/16/2023 ECG COMPLETE ECG COMPLETE ECG 10/16/2022 2:04 PM EST [facility] End: 04-30-2024 EGD DIAGNOSTIC EGD DIAGNOSTIC Endoscopy Routine Gastroesophageal reflux disease, unspecified whether esophagitis present 1 Occurrences starting 04/30/2023 until 04/30/2024 [facility] Work Phone: Comment on above: 1 Occurrences starting 04/30/2023 until 04/30/2024 EMG(NEURO/NI) EMG(NEURO/NI) EM G Routine Pain in both hands Ordered: 05/03/2022 [facility] Work Phone: Comment on above: Ordered: 05/03/2022 End: 04-25-2024 EMG(NEURO/NI) EMG(NEURO/NI) EMG Routine Numbness and tingling in right hand 1 Occurrences starting 04/25/2023 until 04/25/2024 [facility] Work Phone: Comment on above: 1 Occurrences starting 04/25/2023 until 04/25/2024 MG Breast Screening GENOVEVA SCREENIN G Radiology Routine Encounter for screening mammogram for breast cancer 10/10/2023 1:07 PM EST [facility] Work Phone: End: 01-22-2025 MG Breast Screening GENOVEVA SCREENING Radiology Routine Encounter for gynecological examination (general) (routine) without abnormal findings Encounter for screening mammogram for breast cancer 1 Occurrences starting 12/24/2023 until 01/22/2025 [facility] Work Phone: Comment on above: 1 Occurrences starting 12/24/2023 until 01/22/2025 MG Breast Screening GENOVEVA SCREENIN G Radiology Routine Encounter for gynecological examination (general) (routine) without abnormal findings Encounter for screening mammogram for breast cancer 10/21/2024 2:30 PM EST [facility] [employer] Work Phone: MR Lumbar spine [facility] End: 01-24-2023 Mri brain brain stem w/o w/contrast material MRI BRAIN WO/W IVCON Radiology Routine 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) Vertigo Memory deficits New daily persistent headache 1 Occurrences starting 12/25/2021 until 01/24/2023 [facility] Work Phone: Comment on above: 1 Occurrences starting 12/25/2021 until 01/24/2023 Oph bmtry prtl coher intrfrmtry io lens pwr favio 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 W/ IOL CALC OPHT Imaging Routine Combined forms of age-related cataract of both eyes Ordered: 04/03/2022 [facility] Work Phone: Comment on above: Ordered: 04/03/2022 OT PLAN OF CARE CERTIFICATION OT PLAN OF CARE CERTIFICATION Procedures Routine Difficulty with household tasks Impaired mobility and personal care Personal care impairment Complaints of difficulty with reading Blindness right eye category 3, blindness left eye category 4 Ordered: 09/19/2022 [facility] Comment on above: Ordered: 09/19/2022 PAP TEST PAP TEST Lab Rou ronnell Encounter for gynecological examination (general) (routine) without abnormal findings Encounter for screening for human papillomavirus (HPV) Pap smear for cervical cancer screening 12/24/2023 1:43 PM EDT [facility] Patient Education [facility] Work Phone: End: 07-09-2025 Polysomnogram POLYSOMNOGRAM (PSG) Procedures Routine DAYSI (obstructive sleep apnea) 1 Occurrences starting 07/09/2024 until 07/09/2025 [facility] Work Phone: Comment on above: 1 Occurrences starting 07/09/2024 until 07/09/2025 End: 10-08-2025 Polysomnogram POLYSOMNOGRAM (PSG) Procedures Routine Snoring Excessive daytime sleepiness Non-restorative sleep PLMD (periodic limb movement disorder) Primary hypertension 1 Occurrences starting 10/08/2024 until 10/08/2025 [facility] Work Phone: Comment on above: 1 Occurrences starting 10/08/2024 until 10/08/2025 End: 07-28-2023 Radiologic exam chest 2 views XR CHEST 2V FRONTAL/LAT Radiology Routine Acute cough 1 Occurrences starting 06/28/2022 until 07/28/2023 [facility] Work Phone: Comment on above: 1 Occurrences starting 06/28/2022 until 07/28/2023 Revj/rpr oprative wo und anterior segment 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 Leaking of conjunctival drainage bleb [facility] [place] End: 01-03-2023 Screening mammography bi 2-view breast inc cad GENOVEVA SCREENING Radiology Routine Encounter for screening mammogram for breast cancer 1 Occurrences starting 12/04/2021 until 01/03/2023 [facility] Work Phone: Comment on above: 1 Occurrences starting 12/04/2021 until 01/03/2023 Tdap vaccine 7 yrs/> im TDAP VAC CINE, AGE 7+ YR (ADACEL, BOOSTRIX) Immunization/Injection Routine Need for vaccination Ordered: 03/01/2025 [facility] Work Phone: Comment on above: Ordered: 03/01/2025 End: 10-28-2023 Us breast uni real time with image limited US BREAST LTD RT Radiology Routine Abnormal mammogram 1 Occurrences starting 09/28/2022 until 10/28/2023 [facility] Work Phone: Comment on above: 1 Occurrences starting 09/28/2022 until 10/28/2023 End: 10-31-2023 XR HAND GENERAL 3V PA/LAT/OBL BILATERAL XR HAND GENERAL 3V PA/LAT/OBL BILATERAL Radiology Routine Pain in both hands 1 Occurrences starting 10/01/2022 until 10/31/2023 [facility] Work Phone: Comment on above: 1 Occurrences starting 10/01/2022 until 10/31/2023 XR HAND GENERAL 3V PA/LAT/OBL BILATERAL XR HAND GENERAL 3V PA/LAT/OBL BILATERAL Radiology Routine Pain in both hands 10/01/2022 2:14 PM EST [facility] Work Phone: XR Spine Lumbar and Sacrum Views [facility] Immunizations Immunization Date Immunization Notes Care Provider Adwoa matthews 03-02-2025 tetanus toxoid, redu leona diphtheria toxoid, and acellular pertussis vaccine, adsorbed Co Nurse Work Phone: [facility] 02-25-2025 diphtheria, tetanus toxoids and acellular pertussis vaccine, unspecified formulation Ifeoma Davis MD Work Phone: [facility] Payers Date Payer Category Payer Self-pay [id number] 2021 Medicaid [id number] 2021 Medicaid [id number] 2020 Medicaid [id number] 2019 Medicare (Managed Care) [employer] [facility] HMO [id number] 2017 Unknown [place] [employer] O [id number] 2017-Present [phone] [address] [place] [address] [facility] [id number] 12-01-2017 Unknown [id number]. [id number] 12-01-2017 Unknown [id number] 03-02-2014 Unknown [id number] Unknown [id number] 2.16.840.1.829380.3.579.2. 462 Unknown [id number] 2.16840.1.544288.3.579.2. 462 Unknown [id number] 2.16.840.1.257683.3.579.2. 462 Unknown [id number] 2.16.840.1.211968.3.579.2. 462 Unknown [id number] 2.16.840.1.161626.3.579.2. 462 Unknown [id number] 2.16.840.1.830862.3.579.2. 462 Unknown [id number] 2.16.840.1.155622.3.579.2. 462 Unknown [id number] 2.16.840.1.089557.3.579.2. 462 Unknown [id number] 2.16.840.1.199142.3.579.2. 462 Unknown [id number] 2.16.840.1.991552.3.579.2. 462 Unknown [id number] 2.840.1.415729.3.579.2. 462 Unknown [id number] 2.840.1.789680.3.579.2. 462 Unknown [id number] 2.840.1.867128.3.579.2. 462 Unknown [id number] 2.16840.1.378947.3.579.2. 462 Unknown [id number] 2.840.1.423238.3.579.2. 462 Unknown [id number] 2.840.1.540107.3.579.2. 462 Unknown [id number] 2.840.1.245965.3.579.2. 462 Unknown [id number] 2.840.1.912069.3.579.2. 462 Unknown [id number] 2.840.1.030521.3.579.2. 462 Social History Date Type Detail Facility Start: 12-09-2014 End: 06-29-2025 Tobacco smoking status DEIS Never smoked tobacco [facility] Work Phone: Start: 11-28-2021 End: 04-22-2025 Alcohol intake Current non-drinker of alcohol (finding) [facility] Start: 11-21-2020 History SDOH Social Connections Phone 5 [facility] Start: 11-21-2020 History SDOH Social Connections Yazidism 3 [facility] Start: 11-21-2020 History SDOH Social Connections Membership 1 [facility] Start: 11-21-2020 History SDOH Physica l Activity DPW 7 [facility] Start: 11-21-2020 History SDOH Physica l Activity MPS 2 [facility] Start: 1970 Sex Assigned At Not on file [facility] Start: 12-15-2021 End: 06-25-2022 Exposure to SARS-CoV-2 (event) Not sure [facility] Work Phone: Start: 12-09-2014 End: 03-24-2025 Tobacco use and exposure Smokeless tobacco non-user [facility] Start: 1970 Sex Assigned At Female C [facility] Start: 11-20-2021 End: 11-06-2023 Tobacco smoking status NHIS Unknown if ever smoked [facility] Start: 11-21-2020 End: 12-24-2023 History of Social function [facility] Work Phone: Start: 11-21-2020 End: 12-24-2023 Social connection and isolation panel [facility] Work Phone: Do you belong to any clubs or organizations such as adventism groups, unions, fraternal or athletic groups, or school groups? Yes [facility] Work Phone: Are you now , , , , never or living with a partner? [facility] Work Phone: Start: 08-03-2012 Adult Depression Screening Assessment 0 [facility] Work Phone: Do you feel stress - tense, restless, nervous, or anxious, or unable to sleep at night because your mind is troubled all the time - these days [OSQ] Only a little [facility] Work Phone: Start: 09-18-2022 Gender identity Identifies as female gender (finding) [facility] Start: 09-18-2022 Sexual orientation Heterosexual (fin ding) [facility] Start: 11-30-2024 Sex Female (finding) [facility] NEGATED: Highlighted rowStart: MICHAEL History of tobacco use Passive smoker [facility] Medical Equipment Procedure Code Equipment Code Equipment Origin al Text Equipment Identifier Dates Lens Acrysof Ultrasert +14.5 Diopter Acrylic Iol 1 Piece Foldable Uv Blue - [id number] Start: 06-25-2022 Lens Acrysof Ultrasert +15.5 Diopter Acrylic Iol 1 Piece Foldable Uv Blue - [id number] Start: 11-15-2022 Functional Status Date Assessment Result Facility 12-14-2014 Are you deaf, or do you have serious difficulty hearing No 12/14/2014 10:27 AM Celeste Bass LPN No [facility] 12-14-2014 Are you blind, or do you have serious difficulty seeing, even when wearing glasses Yes 12/14/2014 10:27 AM Celeste Bass LPN Yes [facility] 12-14-2014 Do you have serious difficulty walking or climbing stairs No 12/14/2014 10:27 AM Celeste Bass LPN No [facility] 12-14-2014 Do you have difficul ty dressing or bathing No 12/14/2014 10:27 AM Celeste Bass LPN No [facility] 12-14-2014 Because of a physica l, mental, or emotional condition, do you have difficulty doing errands alone such as visiting a physician's office or shopping No 12/14/2014 10:27 AM Celeste Bass LPN No [facility] Mental Status Date Assessment Result Facility 06-29-2025 Cognitive function Level Of Cons ciousness Awake [facility] Work Phone: 06-23-2025 Cognitive function Level Of Cons ciousness Awake [facility] Work Phone: 06-17-2025 Cognitive function Level Of Cons ciousness Awake [facility] Work Phone: 12-14-2014 Because of a physica l, mental, or emotional condition, do you have serious difficulty concentrating, remembering, or making decisions No 12/14/2014 10:27 AM EDT Celeste Gomez LPN No [facility] Clinical Notes 11-28-2021 to 07-06-2025 Note Date & Type Note Facility 07-06-2025 Note [facility] 07-06-2025 Note [facility] 07-05-2025 Note HNO ID: [id number] Author: CATIE LINDSEY RT(R) Service: ? Author Type: Technologist Type: Progress Notes Filed: 07/05/2025 15:55 Note Text: xray: chest [facility] 07-02-2025 Note [facility] 07-01-2025 Note [facility] 07-01-2025 Note [facility] 06-30-2025 Note [facility] 06-30-2025 Note [facility] 06-30-2025 Note [facility] 06-17-2025 Discharge summary [facility] 06-17-2025 Radiology Diagnostic study note [facility] Imaging Services [address] [place] [address] Brain/Head without Contrast MR#: [id number] Acct: [id number] Name: ALLIE LYNN Rep #: [id number] : 1970 F 55 From: Rust franki June MD PCP: Dr. Ifeoma Davis MD Status: REG E R Study:Brain/Head without Contrast Date of Exa m: 06/17/25 Exam# [id number] Ordering Dr: Stacey Piña DO PROCEDURE: CT BRAIN/HEAD WITHOUT CONTRAST; CTA HEAD AND NECK WITH CONTRAST 06/17/2025 REASON FOR EXAM: HEADACHE, RIGHT FACE PAIN TECHNIQUE: Procedure Code: CTBR; CTCTA.HDNCK Modality: CT Procedure: BRAIN/HEAD WITHOUT CONTRAST; CTA HEAD AND NECK W/ CONTRAST Coronal and Sagittal reconstruction series were provided. 3D post processing wasperformed. Contrast: 100 cc of Isovue 370 intravenous [...] plaque along the carotid siphons, with irregular moderatestenosis of the supraclinoid right ICA, and no significant stenosis on the left. NONCONTRAST CT HEAD: No acute intracranial hemorrhage, extra-axial collection, mass effect or evidence of acute infarct. Ventricles and subarachnoid spaces are normal in size. Absent venetie ocular lenses. Intact skull base and calvarium. [...] provider Patti Piña 06/17/2025 at 6 p.m. GENERAL CLEANER. Reading Location: [id number] CC: Dr. Ifeoma Davis MD; Dr. Patti Piña, DO ~ County Assessor: Signed [facility] 06-17-2025 Radiology Diagnostic study note [facility] Imaging Services [address] [place] [address] CTA Head AND Neck W/ Contrast MR#: [id number] Acct: [id number] Name: ALLIE LYNN Rep #: [id number] : 1970 F 55 From: Eric June MD PCP: Dr. Ifeoma Davis MD Status: REG E R Study:CTA Head AND Neck W/ Contrast Date of E xam: 06/17/25 Exam# [id number] Ordering Dr: Stacey Piña DO PROCEDURE: CT BRAIN/HEAD WITHOUT CONTRAST; CTA HEAD AND NECK WITH CONTRAST 06/17/2025 REASON FOR EXAM: HEADACHE, RIGHT FACE PAIN TECHNIQUE: Procedure Code: CTBR; CTCTA.HDNCK Modality: CT Procedure: BRAIN/HEAD WITHOUT CONTRAST; CTA HEAD AND NECK W/ CONTRAST Coronal and Sagittal reconstruction series were provided. 3D post processing wasperformed. Contrast: 100 cc of Isovue 370 intravenous [...] plaque along the carotid siphons, with irregular moderatestenosis of the supraclinoid right ICA, and no significant stenosis on the left. NONCONTRAST CT HEAD: No acute intracranial hemorrhage, extra-axial collection, mass effect or evidence of acute infarct. Ventricles and subarachnoid spaces are normal in size. Absent venetie ocular lenses. Intact skull base and calvarium. [...] provider Patti Piña 06/17/2025 at 6 p.m. GENERAL CLEANER. Reading Location: [id number] CC: Dr. Ifeoma Davis MD; Dr. Patti Piña DO ~ County Assessor: Signed [facility] 06-17-2025 Discharge summary Note Date/Time June 17, 2025 7:48pm [facility] Medical Records Department [address] [place] [address] Emergency Department Summary 06/17/25 MR#: [id number] Acct: [id number] Name: ALLIE LYNN Rep #:[id number] : 1970 55 From: Patti Piña DO PCP: Dr. Ifeoma Davis MD Status:DEP E R Location: ED HPI History of [...] too high risk to have the surgery. [facility] Medical History (Updated 06/17/25 @ 19:[address] Patti Piña, DO) Wears glasses Depression Anxiety High cholesterol [...] tablet 40 mg PO QHS HLD 01/17/17 Un known History meloxicam 15 mg tablet 15 mg PO DAILY PAIN 11/20/21 Unknown History omeprazole 20 mg capsule,delayed 20 mg PO DAILY GERD 0 11/20/21 Unknown History release amlodipine 2.5 mg tablet 2.5 mg PO QDAY HTN 12/09/24 Unknown History aspirin 81 mg tablet,delayed 81 mg PO QDAY HEART HEALT H 12/09/24 Unknown History release (Adult Low Dose Aspirin) escitalopram oxalate 10 mg tablet 10 mg PO QDAY ANXIET Y 12/09/24 Unknown History estradiol 0.1 mg/24 hr semiweekly 1 patch transdermal QWEEK HORMONE 12/09/24 Unknown History transdermal patch (Darling) REPLACEMENT lisinopril 10 1 tab PO QDAY HTN 12/09/24 U nknown History mg-hydrochlorothiazide 12.5 mg tablet magnesium 200 mg tablet 200 mg PO QDAY SUPPLEMENT Unknown History zolpidem 5 mg tablet 5 mg PO QHS PRN sleep Unknown History fluticasone propionate 50 2 spray intranasal QDAY KRISTI RGIES 03/10/25 Unknown History mcg/actuation nasal spray,suspension oxycodone-acetaminophen 5 mg-325 0.5 - 1 tab PO TID PA N pain 03/10/25 Unknown History mg tablet cyclobenzaprine 10 mg tablet 10 mg PO HS MUSCLE SPASM 06/04/25 Unknown History Lactobacillus 25 billion 1 cap PO DAILY SUPPLMENT 06/26 Unknown History cell-Bifido 25 billion [id number] capsule cevimeline 30 mg capsule 1 cap PO DAILY DRY MOUTH 06/26 Unknown History cholecalciferol (vitamin D3) 50 50 mcg PO DAILY SUPPLE MENT 06/11/25 Unknown History mcg (2,000 unit) capsule (Vitamin D3) progesterone micronized 100 mg 100 mg PO QHS HORMONE R EPLACMENT 06/11/25 Unknown History capsule bupropion HCl 150 mg 24 hr tablet, 150 mg PO DAILY Unknown History extended release clopidogrel 75 mg tablet (Plavix) 75 mg PO DAILY #30 t abs 06/17/25 Unknown Rx gabapentin 100 mg capsule 100 mg PO DAILY 06/17/25 Unk nown History potassium chloride 10 mEq 10 meq PO DAILY 06/17/25 Unk nown History tablet,extended release prednisolone acetate 1 % eye 1 drp LEFT EYE 4X/DAY Unknown History drops,suspension timolol maleate 0.5 % eye drops 1 drp LEFT EYE BID Unknown History trazodone 100 mg tablet 100 mg PO QHS 06/17/25 Unkno wn History triamcinolone acetonide 0.025 % applic topical BID Unknown History topical cream Allergy/AdvReac Type Severity Reaction [...] Other Breast cancer Ovarian cancer Surgical History History of eye surgery Status post glaucoma surgery S/P right knee arthroscopy S/P Social History household members: none housing: house Smoking Status: Never smoker alcohol intake: current alcohol intake frequency: holidays/special occasions only substance use type: does not use ROS ROS ED Review of Systems ROS Unobtainable: other Constitutional Constitutional ED: Reports lethargy; Denies chills, fever(s), sweats or weight loss Eyes Eyes: Denies blurry vision, change in vision or diplopia ENT ENT ED: Denies rhinorrhea or sore throat Cardiovascular Cardiovascular: Denies chest pain, orthopnea or racing heartbeat Respiratory/Chest Respiratory/Chest: Denies cough, dyspnea, dyspnea on exertion, orthopnea or sputum Gastrointestinal Gastrointestinal: Denies abdominal pain, diarrhea, nausea or vomiting Genitourinary Genitourinary ED: Denies dysuria, hematuria or urinary frequency Musculoskeletal Musculoskeletal: Denies arthralgias, back pain, myalgias or neck pain Integumentary Denies abscess, Abrasions or rash Neurologic Neurologic: Reports headache(s); Denies weakness Psychiatric Psychiatric: Denies anxiety, depression or suicidal thoughts Endocrine Endocrinology: Denies polydipsia, polyphagia or polyuria Hematologic/Lymphatic Hematologic/Lymphatic: Denies easy bleeding, easy bruising or lymphadenopathy Allergic/Immunologic Allergic/Immunologic ED: Denies mouth swelling, tongue swelling or urticaria EXAM Physical Exam Const Vital Signs: 06/17/25 17:55 Temperature 98.2 F Temperature Source Oral Pulse Rate 80 Respiratory Rate 16 Blood Pressure 136/79 H Blood Pressure Mean 98 Pulse Ox 98 Oxygen Delivery Method Room Air Positive well nourished and well developed General Appearance ED: well developed and NAD HEENT Reports TM's clear and moist mucous membranes normocephalic and atraumatic; Negative for trauma or tenderness Tympanic Membrane ED: Yes TM's clear Eyes PERRL and EOMs intact bilaterally General Eye ED: Negative for pale conjunctiva or scleral icterus Neck no lymphadenopathy, supple and no JVD General: Negative for tenderness Chest Wall inspection of chest normal and palpation of chest normal Chest: Negative for tenderness Resp normal respiratory effort and clear to auscultation bilaterally Effort and Inspection: Negative for respiratory distress or pain with movement Auscultation: Negative for rhonchi, wheezes or diminished lung sounds Cardio regular rate, regular rhythm, S1 normal heart sound, S2 normal heart sound and no murmurs Peripheral Pulses: pulses 2+ throughout GI normal to inspection, nondistended, normoactive bowel sounds, soft to palpation,non-tender, non-distended and no masses Back/Spine no CVA tenderness and no thoracic nor lumbar tenderness Extremity normal to inspection General Extremety ED: Negative for edema General Extremity: Negative for edema Neuro oriented x3, CN's II-XII intact bilaterally, no sensory deficits noted and gait normal Neuro Narrative: Finger-nose and heel quinonez testing within normal limits, negative Romberg, negative pronator drift, fundi benign Sensorium / Orientation: awake, alert, oriented to person, oriented to place andoriented to time Motor Exam: strength 5/5 throughout and strength abnormal Psych mental status grossly normal Skin no rashes or lesions noted and no wounds MDM MDM MDM Narrative Medical decision making narrative: Patient presents with right sided intermittent head pain. Clinically looks well. Neurologically intact. I obtained a CT scan of the brain without contrast that showed no acute intracranial hemorrhage or mass effect. CTA of the head and neck obtained showed near complete occlusion of the left vertebral artery from its origin with appearance of long segment dissection versus intramural hematoma. There was diminutive rectal reconstitution at the distal V4 segment. Widely patent contralateral dominant right artery and basilar artery. Patient also with some atherosclerotic plaque at the carotid bifurcation with mild stenosis of the bilateral proximal ICAs and irregular moderate stenosis of the distal right ICA cavernous super glenoid segment.. Discussed results with patient. Spoke with vascular surgery on-call Dr. Hinojosa. 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 He recommended therapy with dual antiplatelet therapy with aspirin and Plavix. Patient already takes 81 mg of aspirin daily and I will write her for Plavix. She also takes a statin currently. He has to see her in the office next week. She also has an appointment apparently she believes with a vascular surgeon in [facility] next Saturday which is in 5 days. I did give her 4 mg of morphine IV. Clinical suspicion low for an acute process with the vertebral artery and I do not feel this is what is causing her symptoms. Pain being intermittent and distribution involving the right side of the head and face may be more indicative of a nerve process. I have low suspicion for temporal arteritis and the temporal artery does not seem tender or firm. Lab Data Attestation: I reviewed the patient's lab results. Radiography Diagnostic Testing: Clinical Impression(s) from Imaging Studies Brain CT 06/17/25 18:12 IMPRESSION: 1. No acute intracranial hemorrhage, mass-effect [...] provider Patti Piña 06/17/2025 at 6 p.m. GENERAL CLEANER. Reading Location: [facility] Head/Neck CTA 06/17/25 18:12 IMPRESSION: 1. No acute intracranial hemorrhage, mass-effect [...] provider Patti Piña 06/17/2025 at 6 p.m. GENERAL CLEANER. Reading Location: [facility] Discharge Plan Triage Chief Complaint: Headache ED Provider: Patti Piña Dx/Rx/DC Orders Clinical Impression: Headache Instructions: ED Headache Unspecified Prescriptions: New clopidogrel [Plavix] 75 mg tablet 75 mg PO DAILY Qty: 30 0RF No Action cyclobenzaprine 10 mg tablet 10 mg PO HS aspirin [Adult Low Dose Aspirin] 81 mg tablet,delayed release (DR/EC) 81 mg PO QDAY lisinopril-hydrochlorothiazide 10-12.5 mg tablet 1 tab PO QDAY zolpidem 5 mg tablet 5 mg PO QHS PRN (Reason: sleep) amlodipine 2.5 mg tablet 2.5 mg PO QDAY estradiol [Darling] 0.1 mg/24 hr patch semiweekly 1 patch transdermal QWEEK escitalopram oxalate 10 mg tablet 10 mg PO QDAY magnesium 200 mg tablet 200 mg PO QDAY oxycodone-acetaminophen 5-325 mg tablet 0.5 - 1 tab PO TID PRN (Reason: pain) fluticasone propionate 50 mcg/actuation spray,suspension 2 spray intranasal QDAY atorvastatin 40 MG tablet 40 mg PO QHS meloxicam 15 mg tablet 15 mg PO DAILY omeprazole 20 mg capsule,delayed release(DR/EC) 20 mg PO DAILY potassium chloride 10 mEq tablet extended release 10 meq PO DAILY trazodone 100 mg tablet 100 mg PO QHS gabapentin 100 mg capsule 100 mg PO DAILY bupropion HCl 150 mg tablet extended release 24 hr 150 mg PO DAILY prednisolone acetate 1 % drops,suspension 1 drp LEFT EYE 4X/DAY triamcinolone acetonide 0.025 % cream topical BID timolol maleate 0.5 % drops 1 drp LEFT EYE BID progesterone micronized 100 mg capsule 100 mg PO QHS cholecalciferol (vitamin D3) [Vitamin D3] 50 mcg (2,000 unit) capsule 50 mcg PO DAILY cevimeline 30 mg capsule 1 cap PO DAILY Lacto no.96-Imfeki-RBS-larch 25B cell-25B cell-50 mg capsule 1 cap PO DAILY Primary Care Provider: Ifeoma Davis Referrals: Ifeoma Davis MD [Primary Care Provider, Internal Medicine] Quincy Hinojosa MD [Med Staff - Active Staff, Vascular Surgery] - 5-7 Days Print Language: Zambian Disposition Disposition: Home, Self Care What to do if you have Problems For any increased pain, shortness of breath, bleeding, nausea or vomiting, chestpain, or any unexpected problems, contact your Primary Care Provider. Call [facility] ([phone]) or report to the closest Emergency Room. Call 911 if necessary. 06/17/252232 <Electronically signed by Patti Piña DO> Cosigner Signature (if applicable): CC: Dr. Ifeoma Davis MD ~ Signed [facility] Work Phone: 1(625) 690-272609-26-2025 [facility] Discharge summary [facility] Medical Records Department [address] [place] [address] [place] [address] Emergency Department Summary 05/27/25 MR#: [id number] Acct: [id number] Name: ALLIE LYNN Rep #:[id number] : 1970 55 From: Juan Manuel Turpin [...] (Patient was dazed.); Negative for Parasthesias, Weakness, [place] function, Inability to ambulate, Loss of consciousness [...] QDAY 12/09/24 Unkn own History omega-3 720 zg-fyv-ttb-fish cap PO 12/09/24 Unknown Hi story oil-vit [...] mg-325 0.5 - 1 tab PO TID PA N pain 03/10/25 Unknown History mg tablet [...] narrative: Patient has a concussion. Per the [place] head rule and [place] rule imaging is not indicated. Patient was [...] mg tablet 200 mg PO QDAY vitamin H04-pqlyd acid 500-400 mcg tablet 1 tab PO QDAY Rx Instructions: administer with a meal eq-5-gtd-epa-fish oil-vit D3 720 mg- 25 mcg capsule [...] Internal Medicine] - As Needed Print Language: Zambian Disposition Disposition: Home, Self Care What to do if you have Problems For any increased pain, shortness of breath, bleeding, nausea or vomiting, chestpain, or any unexpected problems, contact your Primary Care Provider. Call [facility] ([phone]) or report tothe closest Emergency Room. Call 911 if necessary. 05/27/251913 Cosigner Signature (if applicable): CC: Dr. Ifeoma Davis MD ~ Signed [facility]09-25-2025 Discharge summary Author Juan Manuel Turpin [facility] Note Date/Time May 27, 2025 7:14pm [facility] Medical Records Department [address] [place] [address] Emergency Department Summary 05/27/25 MR#: [id number] Acct: [id number] Name: ALLIE LYNN Rep #:[id number] : 1970 55 From: Juan Manuel Turpin [...] similar symptoms: No Recent Illness/Hospitalization: No PFSH PFSH Medical History Hip arthritis Degenerative scoliosis [...] QDAY 12/09/24 Unkn own History omega-3 720 pb-iko-mfu-fish cap PO 12/09/24 Unknown Hi story oil-vit [...] mg-325 0.5 - 1 tab PO TID PA N pain 03/10/25 Unknown History mg tablet [...] narrative: Patient has a concussion. Per the [place] head rule and [place] rule imaging is not indicated. Patient was [...] mg tablet 200 mg PO QDAY vitamin L50-bijwp acid 500-400 mcg tablet 1 tab PO QDAY Rx Instructions: administer with a meal pq-4-mks-epa-fish oil-vit D3 720 mg- 25 mcg capsule PO oxycodone-acetaminophen 5-325 mg tablet 0.5 - 1 tab PO TID PRN (Reason: pain) gabapentin 100 mg capsule 100 mg PO QHS fluticasone propionate 50 mcg/actuation spray,suspension 2 spray intranasal QDAY atorvastatin 40 MG tablet 40 mg PO QHS meloxicam 15 mg tablet omeprazole 20 mg capsule,delayed release(/EC) Primary Care Provider: Ifeoma Davis Referrals: Ifeoma Davis MD [Primary Care Provider, Internal Medicine] - As Needed Print Language: Zambian Disposition Disposition: Home, Self Care What to do if you have Problems For any increased pain, shortness of breath, bleeding, nausea or vomiting, chestpain, or any unexpected problems, contact your Primary Care Provider. Call [facility] ([phone]) or report to the closest Emergency Room. Call 911 if necessary. 05/27/251913 <Electronically signed by Juan Manuel Turpin MD> Cosigner Signature (if applicable): CC: Dr. Ifeoma Davis MD ~ Signed [facility] Work Phone: 1(476) 210-668209-25-2025 [facility]09-15-2025 Telephone encounter Note* Telephone Encounter - Satish Hunter - 05/17/2025 4:44 PM EDT Images from the original note were not included. Fax received from [facility] dated 05/15/25, regarding New Rx Fax placed on provider desk for review/signature. [facility]09-15-2025 Miscellaneous Notes* Telephone Encounter - Satish Hunter - 05/17/2025 4:44 PM EDT Images from the original note were not included. Fax received from [facility] dated 05/15/25, regarding New Rx Fax placed on provider desk for review/signature. documented in this encounterMer[facility]08-28-2025 Telephone encounter Note * Telephone Encounter - Mallory Morrison RN - 04/29/2025 8:26 AM EDT Call placed to patient and notified of below with verbalized understanding. Mallory Morrison RN [facility]08-28-2025 Miscellaneous Notes* Telephone Encounter - Mallory Morrison [...] advise, Mallory Morrison RN documented in this encounterMercy [facility]08-27-2025 Telephone encounter Note * Telephone Encounter - Ifeoma Davis MD - 04/28/2025 5:22 PM EDT Filed the medication as requested [facility]08-27-2025 Telephone encounter Note* Telephone Encounter - Spring Peñaloza RN - 04/28/2025 4:42 PM EDT Pt called in to see if provider had called in a steroid for her. I let her know that the provider had not gotten to the message as of yet. Please call and advise. Spring Peñaloza RN [facility]08-27-2025 Telephone encounter Note* Telephone Encounter - Mallory [...] Please review and advise, Mallory Morrison RN [facility]08-21-2025 Telephone encounter Note* Telephone Encounter - Jackie Freitas MA - 04/22/2025 3:41 PM EDT The following approved medication requests have been transmitted electronically. Requested Prescriptions Signed Prescriptions Disp Refills fluconazole (DIFLUCAN) 150 mg tablet 10 tablet 0 Sig: Take 1 tablet by mouth once daily for 10 days. Authorizing Provider: IFEOMA DAVIS MA [facility]08-21-2025 Miscellaneous Notes* Telephone Encounter - Jackie Freitas [...] 3:35 PM EDT I sent new rx. Ifeoma Flores MD * Telephone Encounter - Clint Brennan RN - 04/22/2025 11:31 AM EDT [facility] S[facility] Javier called for clarification on Fluconazole 150 mg instructions: 1 tab daily for 10 days (repeat in 3 days if needed) # 10. Please clarify and let Liliana Javier know. documented in this encounterMercy [facility] Hospital08-21-2025 Telephone encounter Note * Telephone Encounter - Ifeoma Davis MD - 04/22/2025 3:35 PM EDT I sent new rx. Ifeoma Flores MD [facility]08-21-2025 Telephone encounter Note* Telephone Encounter - Clint Brennan, RN - 04/22/2025 11:31 AM EDT Liliana Javier called for clarification on Fluconazole 150 mg instructions: 1 tab daily for 10 days (repeat in 3 days if needed) # 10. Please clarify and let Liliana Javier know. [facility]08-21-2025 Instructions* Patient Instructions* Ifeoma Davis MD - 04/22/2025 11:30 AM EDT We discussed your eye condition and recent surgery: - You reported ongoing issues with fluid leakage and discomfort following your eye surgery. The fluid leakage has improved, and your eye pressure is now stable. Continue following up with your software computer specialist as scheduled. - You mentioned a [...] not improve. - Follow up with your software computer specialist as scheduled. - Attend your MRI appointment on May 07 for your hip. - Let me know if you would like to proceed with an ENT referral for the Inspire device. Please contact the office if you have any questions or concerns. documented in this encounterMercy [facility]08-21-2025 [facility]08-21-2025 History of Present illness Narrative* Ifeoma [...] Allie recently underwent eye surgery at the [facility] due to a significant decrease in intraocular [...] intraocular pressure. She also reports a persistent "big pocket of weird fluid" near her eye, which was evaluated by [...] also reports visual hallucinations, describing seeing a "perfect eyeball" with green or purple colors and eyelashes, which she believes may be related to her eye condition. She is currently taking multiple medications and expresses interest in having her medications organized into pill packets for easier management. She also mentions a recent dental visit at [facility], where she discussed treatment options [...] excuse any unintended typographical errors. Recording using Casengo software for draft documentation of the visit was discussed with the patient/authorized key account representative; all questions welcomed and answered. 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 I have seen and examined this patient. I have discussed the case and the management of this patient's care with the Resident/Fellow/Finisher Wallboard And Plasterboard, if applicable. I also have reviewed and agree with the assessment and plan as stated above and agree with all of its relevant components. Cynthia Ramos MD April 20, 2025 11:06 AM documented in this encounterMercy Health [facility] Hospital08-19-2025 Instructions* Patient Instructions* Cynthia Ramos MD - [...] weeks total after surgery documented in this encounterMercy Health [facility] Hospital08-10-2025 NoteSam[facility]08-10-2025 History of Present illness Narrative* Aislinn Reyes PA-C - 04/11/2025 1:39 PM EDT Images from the original note were not included. [facility] NOTE Ifeoma Davis MD [address] [facility] [address] Allie Lynn is a 54-year-old female with a history of HTN, wet macular degeneration, and PXE, presenting with cough and sinus congestion. Allie reports onset of symptoms following her 9th eye surgery last week. She notes a productive cough, describing the expectorated material as "gross" and thick, and sinus congestion with drainage. [...] the care of multiple specialists at [facility]. She also has a history of HTN, [...] adenoma CT MAXILLOFAC/SINUS 06/29/2015 [facility] 05/30/2023 Small [...] Dr. Cynthia Ramos M.D. [place] [address] SOCIAL HISTORY[3] Physical Exam: BP 110/62 Pulse [...] agrees with the treatment plan. Recording using Casengo software for draft documentation of the visit was discussed with the patient/authorized key account representative; all questions welcomed and answered. Patient/authorized key account representative agreed to proceed. TRINH Perez, PALexC [...] No Drug use: No documented in this encounterMercy Health [facility] Hospital08-10-2025 Instructions* Patient Instructions* Aislinn Reyes PA-C - 04/11/2025 1:30 PM [...] please contact our office. documented in this encounterMercy Health [facility] Hospital08-02-2025 Telephone encounter Note * Telephone Encounter - Shy Meier MD - 04/03/2025 12:35 PM EDT Received a page that the patient called regarding inability to get eye drops prescribed yesterday due to a drug interaction. I called the patient back and was unable to reach them on multiple attempts. I left a message acknowledging the patient's prior call and concerns and asked them to call back [phone] at any time when available to discuss further. Shy Meier MD Ophthalmology Resident [facility] Work Phone: 1(121) 762-404108-02-2025 Miscellaneous Notes* Telephone Encounter - Shy Meier MD - 04/03/2025 12:35 PM EDT Received a page that the patient called regarding inability to get eye drops prescribed yesterday due to a drug interaction. I called the patient back and was unable to reach them on multiple attempts. I left a message acknowledging the patient's prior call and concerns and asked them to call back [phone] at any time when available to discuss further. Shy Meier MD Ophthalmology Resident documented in this encounterMercy Health West Hospital08-01-2025 History of Present illness Narrative* Adriana Lund MD - 04/02/2025 10:00 AM EDT -PO [...] all of its relevant components. * Adriana Lund MD - 03/29/2025 1:29 PM EDT documented in this encounterMercy Health West Hospital08-01-2025 NoteSam[facility]07-30-2025 Telephone encounter Note* Telephone Encounter - Gely Plascencia - 03/31/2025 2:22 PM EDT patient called, she lost her White Cap eye medication, requesting a new script [facility] Work Phone: 1(204) 164-455407-30-2025 Miscellaneous Notes* Telephone Encounter - Gely Plascencia - 03/31/2025 2:22 PM EDT patient called, she lost her White Cap eye medication, requesting a new script documented in this encounterMercy Health [facility] Hospital07-30-2025 Telephone encounter Note * Telephone Encounter - Ifeoma Davis MD - 03/31/2025 12:59 PM EDT Ordered as requested Regards, Ifeoma Davis MD [facility]07-30-2025 Miscellaneous Notes* Telephone Encounter - Ifeoma Davis [...] advise, Mallory Morrison RN documented in this encounterMercy Health West Hospital07-30-2025 Telephone encounter Note * Telephone Encounter - Gely Plascencia - 03/31/2025 12:12 PM EDT I contacted the patient and left a voicemail informing her that you will be seeing her instead of the other physician. Just a heads-up. [facility] Work Phone: [phone]) [phone] Miscellaneous Notes* Telephone Encounter - Gely Plascencia - 03/31/2025 12:12 PM EDT I contacted the patient and left a voicemail informing her that you will be seeing her instead of the other physician. Just a heads-up. * Telephone Encounter - Adriana Lund MD - 03/31/2025 12:03 PM EDT I moved her back to my Saturday clinic schedule - I will see her Saturday instead of Dr. Ayala * Telephone Encounter - Gely Plascencia - 03/31/2025 8:17 AM EDT The patient has requested that you visit on Saturday to examine her eye. * Telephone Encounter - Adriana Lund MD - 03/30/2025 5:23 PM EDT YES. I can see her in [place] tomorrow (Sat) if she wants. Otherwise she has an appt Saturday with Dr. Ayala. I am on site and happy to come over if needed. * Telephone Encounter - Gely Plascencia - 03/30/2025 2:46 PM EDT The patient reports experiencing tearing from the left eye approximately four to five times daily. Is this considered normal? [phone] sx: 03/25/2025 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 [[id number]] - Eye - Left documented in this encounterMercy Health [facility] Hospital07-30-2025 Telephone encounter Note * Telephone Encounter - Adriana Lund MD - 03/31/2025 12:03 PM EDT I moved her back to my Saturday clinic schedule - I will see her Saturday instead of Dr. Ayala [facility]07-30-2025 Telephone encounter Note* Telephone Encounter - Mallory [...] Please review and advise, Mallory Morrison RN [facility]07-30-2025 Telephone encounter Note* Telephone Encounter - Gely Plascencia - 03/31/2025 8:17 AM EDT The patient has requested that you visit on Saturday to examine her eye. [facility]07-29-2025 Telephone encounter Note* Telephone Encounter - Adriana Lund MD - 03/30/2025 5:23 PM EDT YES. I can see her in [place] tomorrow (Sat) if she wants. Otherwise she has an appt Saturday with Dr. Ayala. I am on site and happy to come over if needed. [facility]07-29-2025 Telephone encounter Note* Telephone Encounter - Gely Plascencia - 03/30/2025 2:46 PM EDT The patient reports experiencing tearing from the left eye approximately four to five times daily. Is this considered normal? [phone] sx: 03/25/2025 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 [[id number]] - Eye - Left [facility]07-28-2025 NoteHNO ID: [id number] Author: ADRIANA LUND MD Service: ? Author Type: Physician Type: Progress Notes Filed: 04/02/2025 10:40 Note Text:[facility]07-25-2025 Note* Addendum Note - Brittaney Mckeon MD - 03/26/2025 8:50 PM EDTAddended by: BRITTANEY MCKEON on: 03/26/2025 08:50 PM Modules accepted: Orders [facility]07-25-2025 Miscellaneous Notes* Addendum Note - Brittaney Mckeon [...] the left eye with Dr. Lund. Attempted tocall 2x and went to . [...] The eye clinic can be reached at [phone] and you can ask to speak to the program evaluation consultant toy maker. Brittaney Mckeon MD Ophthalmology Resident, [facility] documented in this encounterMercy Health [facility] Hospital07-25-2025 Telephone encounter Note * Telephone Encounter - Brittaney Mckeon MD - 03/26/2025 7:17 PM EDT Received page that patient had called with concern over eye tearing. Spoke to them on the phone: Patient is POD1 of revision of trabeculectomy bleb of the left eye with Dr. Lund. Attempted tocall 2x and went to . [...] The eye clinic can be reached at [phone] and you can ask to speak to the program evaluation consultant toy maker. Brittaney Mckeon MD Ophthalmology Resident, [facility]07-23-2025 History and physical note* Emily Chaparro, MURTAZA.CIVIL ENGINEER LAND DEVELOPMENT - 03/24/2025 3:02 PM EDT Images from [...] large neck Non-male patient STOP-Bang Score: 3 [id number] Score: Age: <65 Sex: female CHF history: No Hypertension history: Yes Stroke/TIA/thromboembolism history: No Vascular disease history: Yes Diabetes history: No OEA1ST6-DCNp Score: 3 ARISCAT Score: Age: 51-80 Preoperative [...] visit for bleb leak OS Sent by [facility] doctor for bleb leak OS X 4 [...] Neurological: +BPPV. No history of TIA's, stroke, ADJUNCT FACULTY MATHEMATICS DEPARTMENT tumor, impaired sensorium, hemiplegia, paraplegia or quadraplegia. [...] pain, CHF, congenital heart defect, DVT/PE, recent LA, PTCA, open heart surgery and valve surgery. GI: Negative for: abdominal pain, dysphagia, GERD, hepatitis, irritable bowel syndrome, inflammatory bowel disease, liver disease, nausea, pancreatitis, vomiting and ETOH >2 drinks/day. : No history of dysuria, frequency or incontinence, stones or chronic kidney disease. No difficulty urinating, nocturia > 1 time per night or hematuria. MARKET RESEARCH EXECUTIVE: Negative for abnormal vaginal bleeding, abnormal vaginal [...] Dr. Cynthia Ramos M.D. [place] [address] FAMILY HISTORY Problem Relation Age of Onset Heart Father Age 61 Ovarian cancer Maternal Grandmother Heart Maternal Grandfather Cancer Paternal Grandmother Breast Heart Son [place] Cancer Maternal Aunt 55 ovarian cancer Glaucoma [...] 108/66 Pulse 80 Resp 18 Ht 5' 1" (1.55m) Wt 147 lb (66.7kg) SpO2 96% [...] 8760 hours). Recent Results (from the past 01347 hours) ECHO Collection Time: 07/09/22 3:24 PM [...] 24, 2025 TIME: 3:02 PM PAGER/CONTACT #: [facility]07-23-2025 History and physical note* Emily Chaparro APRN.CNP - 03/24/2025 3:02 PM EDT Images from the original note were not included. [place] [facility] HISTORY [...] large neck Non-male patient STOP-Bang Score: 3 [id number] Score: Age: <65 Sex: female CHF history: No Hypertension history: Yes Stroke/TIA/thromboembolism history: No Vascular disease history: Yes Diabetes history: No [id number]-SLVr Score: 3 ARISCAT Score: Age: 51-80 Preoperative [...] visit for bleb leak OS Sent by [facility] doctor for bleb leak OS X 4 [...] Neurological: +BPPV. No history of TIA's, stroke, ADJUNCT FACULTY MATHEMATICS DEPARTMENT tumor, impaired sensorium, hemiplegia, paraplegia or quadraplegia. [...] pain, CHF, congenital heart defect, DVT/PE, recent LA, PTCA, open heart surgery and valve surgery. GI: Negative for: abdominal pain, dysphagia, GERD, hepatitis, irritable bowel syndrome, inflammatory bowel disease, liver disease, nausea, pancreatitis, vomiting and ETOH >2 drinks/day. : No history of dysuria, frequency or incontinence, stones or chronic kidney disease. No difficulty urinating, nocturia > 1 time per night or hematuria. MARKET RESEARCH EXECUTIVE: Negative for abnormal vaginal bleeding, abnormal vaginal [...] Dr. Cynthia Ramos M.D. [place] [address] FAMILY HISTORY Problem Relation Age of Onset Heart Father Age 61 Ovarian cancer Maternal Grandmother Heart Maternal Grandfather Cancer Paternal Grandmother Breast Heart Son [place] Cancer Maternal Aunt 55 ovarian cancer Glaucoma [...] 108/66 Pulse 80 Resp 18 Ht 5' 1" (1.55m) Wt 147 lb (66.7kg) SpO2 96% [...] 8760 hours). Recent Results (from the past 10404 hours) ECHO Collection Time: 07/09/22 3:24 PM [...] 3:02 PM PAGER/CONTACT #: documented in this encounterMercy Health [facility] Hospital07-23-2025 Instructions* Patient Instructions* Emily Chaparro APRN.CNP - 03/24/2025 3:02 PM EDT Images from the original note were not included. [facility] PATIENT PREOPERATIVE INSTRUCTIONS No ref. provider found has scheduled you for your procedure at this surgery center: [facility] [place]: [phone] --[facility] [place], [address] [id number]. Please read below carefully for your personalized [...] office. If you are currently using a nblw-zuj-jwtv injectable or oral medication for diabetes or [...] Procedures: - YOU MUST HAVE A RESPONSIBLE PATROL COMMUNITY SERVICE OFFICER TAKE YOU HOME. A TOWER WATCHMAN OR MANUFACTURING AUTOMATION ENGINEER CANNOT BE MADE A RESPONSIBLE PATROL COMMUNITY SERVICE OFFICER. - We recommend that a responsible person [...] Advance Directive, please fax a copy to [phone] or email to for it to be [...] day. Emily Chaparro APRN.DEBORAH documented in this encounterMercy Health [facility] Hospital07-23-2025 Telephone encounter Note * Telephone Encounter - Adriana Lund MD - 03/24/2025 2:18 PM EDT I [...] but called back today as documented below. [facility] Work Phone: 1(540) 757-752207-23-2025 Miscellaneous Notes* Telephone Encounter - Adriana Lund MD - 03/24/2025 2:18 PM EDT I [...] Fields - 03/24/2025 9:40 AM EDT Allie Lynn CCF# [id number] Patient calling w/update BCL Contact not working Leaking fluid still, face is wet and sticky Janet Martinez MD filed at 03/23/2025 3:55 PM Status: Signed Urgent visit for bleb leak OS Sent by [facility] doctor for bleb leak OS X 4 [...] 04/06 will revise 04/12 documented in this encounterMercy Health [facility] Hospital07-23-2025 Telephone encounter Note * Telephone Encounter - George Mathur Jackelin - 03/24/2025 9:40 AM EDT Allie Lynn CCF# [id number] Patient calling w/update BCL Contact not working Leaking fluid still, face is wet and sticky Janet Martinez MD filed at 03/23/2025 3:55 PM Status: Signed Urgent visit for bleb leak OS Sent by [facility] doctor for bleb leak OS X 4 [...] if still leaking 04/06 will revise 04/12 [facility] Work Phone: 1(315) 796-174207-22-2025 NoteDate of Procedure 03/23/2025. Manager Electrical Information Turf Keeper: TOO. Notes Bleb leak [id number] NoteDate of Procedure 03/23/2025. Manager Electrical Information Turf Keeper: TOO. 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 Notes No choroidals Document baseline disc [id number] NoteDate of Procedure 03/23/2025. Manager Electrical Information Turf Keeper: TOO. Quality Right Eye Good. Left Eye Good. NFL Interpretation Right Eye Superior loss, Inferior loss. Left Eye Normal.[id number] NoteTable formatting from the original result was not included. Date of Procedure 03/23/2025. Notes Ophthalmology Exam Pachymetry (03/23/2025, 03/23/25) Right Left Thickness 543, 540 540,530 Edited by: Saranya Buchanan OA [id number] Instructions* Patient Instructions* Shyanne Parmar MD - 03/23/2025 3:07 PM EDT Please take timolol (yellow top) twice a day in the left eye And moxifloxacin (mora top) four times a day in the left eye documented in this encounterMer[facility] Hospital07-22-2025 [facility]07-22-2025 History of Present illness Narrative* Janet Martinez MD - 03/23/2025 2:24 PM EDT Urgent visit for bleb leak OS Sent by [facility] doctor for bleb leak OS X 4 [...] Janet Martinez MD 03/23/2025 documented in this encounterMercy Health West Hospital07-22-2025 Telephone encounter Note * Telephone Encounter - Barbie Alicea - 03/23/2025 10:46 AM EDT Appointment scheduled with at 12:30. Patient advised to arrive on empty stomach. States she did have a granola bar and took medications around 9 am. *documentation is in secure chat* Barbie Alicea March 23, 2025 10:48 AM Landry [id number] Miscellaneous Notes* Telephone Encounter - Barbie Alicea [...] needs urgent revision and I'm leaving for [place] tomorrow morninguntil April 07. Maybe its better to go to [facility] to be cared for Left message for patient to call the office to obtain the above information. Barbie Alicea reaching out to [facility] scheduling to find the availability of a spine specialist to take over patient care with Dr. Ramos going out of the country. Janet Rivero RN March 23, 2025 10:00 AM * Telephone Encounter - Janet Rivero RN - 03/23/2025 9:50 AM EDT Spoke with patient. Sent the following message to Dr. Ramos in a Urgent Secure Chat regarding conversation: Received chart notes from [facility] Ankur Curtis MD. Patient has loose Exposed [...] 23, 2025 9:54 AM documented in this encounterMercy Health West Hospital07-22-2025 Telephone encounter Note * Telephone Encounter - Janet Riveor RN - 03/23/2025 9:55 AM EDT Response from Dr. Ramos: yes I can see her sooner but this needs urgent revision and I'm leaving for [place] tomorrow morninguntil April 07. Maybe its better to go to [facility] to be cared for Left message for patient to call the office to obtain the above information. Barbie Alicea reaching out to [facility] scheduling to find the availability of a spine specialist to take over patient care with Dr. Ramos going out of the country. Janet Rivero RN March 23, 2025 10:00 AM [facility]07-22-2025 Telephone encounter Note* Telephone Encounter - Janet Rivero RN - 03/23/2025 9:50 AM EDT Spoke with patient. Sent the following message to Dr. Ramos in a Urgent Secure Chat regarding conversation: Received chart notes from [facility] Ankur Curtis MD. 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 acute March 10, 2025 2 :26pm Greater trochanteric bursiti s of left hip acute March 10, 2025 2 :26pm Lumbar spondylosis acute March 102024 2:26pm [employer] Work Phone: 1(852) 256-622107-09-2025 Evaluation note* Diagnosis Onset Date Resolution Status [...] 2:23pm Spondylolisthesis acute April 16, 2025 2:23pm [employer] Work Phone: 1(937) 871-512407-09-2025 Evaluation note* Diagnosis Onset Date Resolution Status [...] 16, 2025 2:23pm Degenerative scoliosis acute Oc tob2024 3:14pm Hip arthritis acute June 3:14pm Lumbar radiculopathy acute Octo 2024 3:14pm Spondylolisthesis acute June 03, 2025 3:14pm [employer] Work Phone: 1(676) 240-242407-09-2025 Evaluation note* Diagnosis Onset Date Resolution Status [...] f left hip acute June 04 10:59am [employer] Work Phone: 1(360) [phone] Telephone encounter Note* Telephone Encounter - YESI VARGHESE - 03/01/2025 7:55 AM EDT Patient scheduled for nurse visit 03/02/25 to receive TDAP vaccine. Please place order at this time. Yesi Varghese LPN [facility]06-30-2025 Miscellaneous Notes* Telephone Encounter - YESI VARGHESE - 03/01/2025 7:55 AM EDT Patient scheduled for nurse visit 03/02/25 to receive TDAP vaccine. Please place order at this time. Yesi Varghese LPN documented in this encounterMercy Health West Hospital06-26-2025 Telephone encounter Note * Telephone Encounter - Spring Peñaloza RN - 02/25/2025 1:26 PM EDT Pt called in and was asking if she was up to date on her TDAP vaccine, because she is going to visit her new grand baby. Please place the order for the vaccine as she will be coming in to get this with [place] nurse on 03/03/25. Spring Peñaloza RN [facility]06-26-2025 Miscellaneous Notes* Telephone Encounter - Spring Peñaloza, BRITTANY - 02/25/2025 1:26 PM EDT Pt called in and was asking if she was up to date on her TDAP vaccine, because she is going to visit her new grand baby. Please place the order for the vaccine as she will be coming in to get this with [place] nurse on 03/03/25. Spring Peñaloza RN documented in this encounterMercy Health West Hospital05-14-2025 Telephone encounter Note * Telephone Encounter - Janet Meza LPN - 01/13/2025 10:27 AM EDT Called and updated patient, patient will call back with alternate supplier Janet Meza LPN January 13, 2025 10:28 AM [facility]05-14-2025 Miscellaneous Notes* Telephone Encounter - Janet Meza [...] EDT Patient reports she has lost her "blindness cane". States she spoke with her insurance company [employer] and they state for PCP to write a new order and send to DME company. Order pended for provider review. Please fax order to [facility]. Please call patient with an update. Angelica Arreola RN documented in this encounterMercy Health West Hospital05-14-2025 Telephone encounter Note * Telephone Encounter - Allie Mcknight LPN - 01/13/2025 9:12 AM EDT Roman from [facility] said they do not carry that item requested. [facility]05-14-2025 Telephone encounter Note* Telephone Encounter - Janet Meza LPN - 01/13/2025 8:10 AM EDT Faxed order to [facility] per patient request Janet Meza LPN January 13, 2025 8:10 AM [facility]05-13-2025 Telephone encounter Note* Telephone Encounter - Angelica Arreola RN - 01/12/2025 10:38 AM EDT Patient reports she has lost her "blindness cane". States she spoke with her insurance company [employer] and they state for PCP to write a new order and send to [employer]. Order pended for provider review. Please fax order to [facility]. Please call patient with an update. Angelica Arreola RN [facility]05-13-2025 Telephone encounter Note* Telephone Encounter - Germaine Berkowitz LPN - 01/12/2025 8:32 AM EDT CPAP supply order faxed. Germaine Berkowitz LPN [facility]05-13-2025 Miscellaneous Notes* Telephone Encounter - Germaine Berkowitz LPN - 01/12/2025 8:32 AM EDT CPAP supply order faxed. Germaine Berkowitz LPN documented in this encounterMercy Health West Hospital04-30-2025 Telephone encounter Note * Telephone Encounter - [...] she is legally blind and doesn't drive. [facility]04-30-2025 Miscellaneous Notes* Telephone Encounter - Clint Brennan [...] results and sent her CPAP orders to [facility] in [place]. They should be reaching out to her [...] 30, 2024 8:39 AM documented in this encounterMercy Health West Hospital04-30-2025 Telephone encounter Note * Telephone Encounter - Letty Morales LPN - 12/30/2024 11:26 AM EDT TC to pt with no answer, left VM to return call. Please confirm if she is referring to her sleep study. I called patient on December 17 with the results and sent her CPAP orders to [facility] in [place]. They should be reaching out to her to set up machine. Letty Morales LPN [facility]04-30-2025 Telephone encounter Note* Telephone Encounter - Eve Tracey - 12/30/2024 8:38 AM EDT Patient calling in to let Michelle Chin know her results from her CPAP are now in her chart. She is asking if she had the chance to review them. Please review and advise patient. Eve Tracey December 30, 2024 8:39 AM [facility]04-29-2025 NoteSam[facility]04-29-2025 History of Present illness Narrative* Ifeoma Davis MD - 12/29/2024 5:04 PM EDT Reason for Visit Follow up depression and sleep apnea HPI Allie is a 54-year-old female with a history of moderate obstructive sleep apnea, presenting for medication refills and management of sleep apnea. Allie reports feeling "a lot better" but still experiences persistent fatigue and a "heavy fog" overher mental clarity, attributing these symptoms to [...] managing her anxiety and depression, noting a "backslide" in her moods. She inquires about the [...] regularly and noting that her legs are "getting super strong again." She also discusses her relationship with a long-term partner, noting that he has recently become more involved in adventism activities and is three months sober. She [...] 112/66 Pulse 86 Ht 154.9 cm (5' 1") Wt 66.4 kg (146 lb 6.4 oz) [...] decreased efficacy of Wellbutrin and experiencing a "backslide" in mood. Discussed potential side effects of [...] any unintended typographical errors. Recording using ambient AI software for draft documentation of the visit was discussed with the patient/authorized key account representative; all questions welcomed and answered. Patient/authorized key account representative agreed to proceed Ifeoma Davis MD documented in this encounterMercy Health West Hospital04-23-2025 Telephone encounter Note * Telephone Encounter - [...] is changing pharmacies from mail order to [facility] so needs a new rx sent Sharifa Amaral RN December 23, 2024 12:45 PM [facility]04-23-2025 Miscellaneous Notes* Telephone Encounter - Sharifa Amaral [...] is changing pharmacies from mail order to [facility] so needs a new rx sent Sharifa Amaral RN December 23, 2024 12:45 PM documented in this encounterMercy Health West Hospital04-17-2025 Telephone encounter Note * Telephone Encounter - Letty Morales LPN - 12/17/2024 2:56 PM EDT TC to pt who voiced understanding. Agreeable to [facility]. 31-90 day follow up made. Letty Morales LPN [facility]04-17-2025 Miscellaneous Notes* Telephone Encounter - Letty Morales LPN - 12/17/2024 2:56 PM EDT TC to pt who voiced understanding. Agreeable to [facility]. 31-90 day follow up made. Letty Morales LPN * Telephone Encounter - Michelle Chin APRN.CNP - 12/17/2024 1:24 PM EDT Please CALL pt with result of sleep study--it confirms that she has sleep apnea so I will prescribeautoCPAP for her. Will plan to send to [facility] unless she has another DME she wants to use. Michelle Chin APRN.CNP documented in this encounterMercy Health West Hospital04-17-2025 Telephone encounter Note * Telephone Encounter - Michelle Chin APRN.CNP - 12/17/2024 1:24 PM EDT Please CALL pt with result of sleep study--it confirms that she has sleep apnea so I will prescribeautoCPAP for her. Will plan to send to [facility] unless she has another DME she wants to use. Michelle Chin APRN.DEBORAH [facility]04-09-2025 Evaluation note* Diagnosis Onset Date Resolution Status Admit Date Greater trochanteric bursiti s of left hip acute December 09, 2024 1:22pm Rotator cuff tendonitis acute A pril 2024 1:22pm [facility] [employer] Work Phone: 1(340) 468-3616581826-03-1458 Telephone encounter Note* Telephone Encounter - Janet Meza LPN - 12/08/2024 10:05 AM EDT Called and left message for patient, on self identified voicemail Janet Meza LPN December 08, 2024 10:05 AM [facility]04-08-2025 Miscellaneous Notes* Telephone Encounter - Janet Meza LPN - 12/08/2024 10:05 AM EDT Called and left message for patient, on self identified voicemail Janet Meza LPN December 08, 2024 10:05 AM * Telephone Encounter - Ifeoma Davis MD - 12/07/2024 5:36 PM EDT Rx for her. Regards, Ifeoma Davis MD * Telephone Encounter - Dara Valdez [...] advise, Dara Valdez RN documented in this encounterMercy Health West Hospital04-07-2025 Telephone encounter Note * Telephone Encounter - Ifeoma Davis MD - 12/07/2024 5:36 PM EDT Rx for her. Regards, Ifeoma Davis MD [facility]04-07-2025 Telephone encounter Note* Telephone Encounter - Jackie Freitas MA - 12/07/2024 11:35 AM EDT This was ordered by sleep provider: Michelle Chin. Results must come from ordering provider. Once sleep provider receives results the sleep office will contact patient. Jackie Freitas MA [facility]04-07-2025 Miscellaneous Notes* Telephone Encounter - Jackie Freitas [...] results. PSS reviewed provider's response in unread MyChart Message. Patient asking to be contacted as soon as results are in. She states she is struggling to sleep. * Telephone Encounter - Dara Valdez RN - 12/01/2024 8:58 AM EDT Patient calls and states that she was at [facility] for Sleep study on 11/17/2024. Patient asking about results for sleep study. Please review and advise, Dara Valdez RN documented in this encounterMercy Health West Hospital04-07-2025 Telephone encounter Note * Telephone Encounter - [...] Please review and advise, Dara Valdez RN [facility]04-07-2025 Telephone encounter Note* Telephone Encounter - Rupa George - 12/07/2024 10:04 AM EDT Patient calling again for status update on sleep study results. PSS reviewed provider's response in unread [employer] Message. Patient asking to be contacted as soon as results are in. She states she is struggling to sleep. [facility]04-01-2025 Telephone encounter Note* Telephone Encounter - Dara Valdez RN - 12/01/2024 8:58 AM EDT Patient calls and states that she was at [facility] for Sleep study on 11/17/2024. Patient asking about results for sleep study. Please review and advise, Dara Valdez RN [facility]03-25-2025 Radiology Diagnostic study note [facility] Imaging Services [address] [place] [address] Hip Min 2 Views (Portable) MR#: [id number] Acct: [id number] Name: ALLIE LYNN Rep #: [id number] : 1970 F 54 From: Benton Weathers DO PCP: Dr. Ifeoma Davis MD Status: REG C WALLY Study:Hip Min 2 Views (Portable) Date of Exam : 11/24/24 Exam# [id number] Ordering Dr: Allie Prakash PROCEDURE: HIP MIN [...] of the left groin region. Reading Location: [id number] CC: Allie Prakash; Dr. Ifeoma Davis MD ~ County Assessor: Signed [facility]03-21-2025 Telephone encounter Note* Telephone Encounter - Spring Peñaloza RN - 11/20/2024 12:46 PM EDT Pt called and is notified of providers results and instructions. Pt voices understanding. Spring Peñaloza RN [facility]03-21-2025 Miscellaneous Notes* Telephone Encounter - Spring Peñaloza RN - 11/20/2024 12:46 PM EDT Pt called and is notified of providers results and instructions. Pt voices understanding. Spring Peñaloza RN * Telephone Encounter - David nAna APRN.CNP - 11/20/2024 12:34 PM EDT Glucose [...] decrease nausea. Thank you David Anna APRN.CNP * Telephone Encounter - Allie Mcknight LPN - 11/20/2024 10:38 AM EDT Patient calling asking about her lab results that she had done yesterday, she can see results on [employer]. Glucose was abnormal at 73, she said [...] 71 Legend: (L) Low documented in this encounterMercy Health West Hospital03-21-2025 Telephone encounter Note * Telephone Encounter - [...] decrease nausea. Thank you David Anna APRN.CNP [facility]03-21-2025 Telephone encounter Note* Telephone Encounter - Allie Mcknight LPN - 11/20/2024 10:38 AM EDT Patient calling asking about her lab results that she had done yesterday, she can see results on [employer]. Glucose was abnormal at 73, she said [...] eGFR >=60 mL/min/1.73m 71 Legend: (L) Low [facility]03-20-2025 NoteSam[facility]03-20-2025 History of Present illness Narrative* David Anna APRN.CNP - 11/19/2024 12:58 PM EDT CC: Patient presents with: Recheck: 2 week follow up HPI Allie Juli Aamir is a 54 year old female [...] Dr. Cynthia Ramos M.D. [place] [id number] ALLERGIES Ultram [Tramadol Hcl], Darvocet A500 [Propoxyphene [...] Maternal Aunt 55 ovarian cancer Heart Son [place] Ovarian cancer Maternal Grandmother Glaucoma No Family [...] Vaccine(1) due on 03/01/2025 Covid-19 Vaccine( - 2023- season) due on 10/12/2025 Depression Screening due [...] - Instructed patient to contact office or [id number] after-hours promptly should condition worsen or any new symptoms appear. - [facility] and after hours crisis line 4. Anxiety [...] plan. David Anna APRN.CNP documented in this encounterMercy Health [facility] Hospital03-06-2025 Telephone encounter Note * Telephone Encounter - Janet Meza LPN - 11/05/2024 1:23 PM EST Patient updated via active [employer] Janet Meza LPN November 05, 2024 1:23 PM [facility]03-06-2025 Miscellaneous Notes* Telephone Encounter - Janet Meza LPN - 11/05/2024 1:23 PM EST Patient updated via active [employer] Janet Meza LPN November 05, 2024 1:23 [...] Regards, Ifeoma Davis MD documented in this encounterMercy Health West Hospital03-06-2025 Telephone encounter Note * Telephone Encounter - [...] help her fatigue. Regards, Ifeoma Davis MD [facility]03-04-2025 Instructions* Patient Instructions* Ifeoma Davis MD - 11/03/2024 2:51 PM EST Try taking the percocet without trazodone to see if that helps sleep with out feeling like a hang over. documented in this encounterMercy Health West Hospital03-04-2025 [facility]03-04-2025 History of Present illness Narrative* Ifeoma [...] her everyday life. Dr. Sparks is her toy maker/financial assistance specialist that she sees every 3 months. States she has not had a bleed in her eye at a long time, but at the same time she states she wouldn't see it at this point. Slowly progressive loss of peripheral vision. Patient also reports that she has issueswith calcified joints/arthritis. She has moved back to [place], so she can use the [employer] for going places, [employer] fitness. She is engaged in a lot of activities, and is giving back to the community as much as she can in every way she can. She has a son in [place], and a brother near by. Her eyes [...] extremely active in the community. T[place] the [employer] bus to [place] every Saturday, [...] Had worked with an OT previously through [facility] in [place] previously who assisted with various techniques and [...] Maternal Aunt 55 ovarian cancer Heart Son [place] Ovarian cancer Maternal Grandmother Glaucoma No Family History Detached Retina No Family History Macular Degen No Family History Blindness No Family History Amblyopia No Family History Social History Tobacco Use Smoking status: Never Smokeless tobacco: Never Vaping Use Vaping status: Never Used Substance Use Topics Alcohol use: No Drug use: No PHYSICAL EXAM BP 114/78 Pulse 98 Ht 154.9 cm (5' 1") Wt 70.2 kg (154 lb 12.8 oz) [...] DIFFERENTIAL Ifeoma Davis MD documented in this encounterMercy Health West Hospital03-03-2025 Telephone encounter Note * Telephone Encounter - Laura Lepe MA - 11/02/2024 7:50 AM EST Patient given results and verbalized understanding of instructions given. Laura Lepe MA [facility]03-03-2025 Miscellaneous Notes* Telephone Encounter - Laura Lepe MA - 11/02/2024 7:50 AM EST Patient given results and verbalized understanding of instructions given. Laura Lepe MA * Telephone Encounter - Britta Gunn PA - 11/02/2024 7:10 AM EST Please let patient know urine culture did not reveal clear evidence of UTI. If she is persistent with symptoms, please follow-up with PCP. documented in this encounterMercy Health [facility] Hospital03-03-2025 Telephone encounter Note * Telephone Encounter - Britta Gunn PA - 11/02/2024 7:10 AM EST Please let patient know urine culture did not reveal clear evidence of UTI. If she is persistent with symptoms, please follow-up with PCP. [facility]03-01-2025 Instructions* Patient Instructions* Chantal Pino APRN.CNP - [...] pain go to ER. documented in this encounterMercy Health West Hospital03-01-2025 [facility]03-01-2025 History of Present illness Narrative* Chantal Pino APRN.CNP - 10/31/2024 1:12 PM EST Subjective The history is provided by the patient. No signs sales representative was used. HPI Allie Lynn is a [...] have confirmed and edited as necessary, the [facility] Review of Systems Constitutional: Negative [...] indetail warranting prompt ER evaluation. franko Pino APRN.CNP documented in this encounterMercy Health West Hospital02-19-2025 History of Present illness Narrative* Kimberley De Los Santos Mammo Tech - 10/21/2024 2:20 PM EST [...] PATIENT PRESENTS WITH AN IMPLANTABLE OR ATTACHED PRIMER POWDER BLENDER WET: No RADIOLOGY DEPARTMENT: Mammography PERIPHERAL IV DATA: Not applicable SIGNED BY: Rubin Carlton October 21, 2024 2:00 PM documented in this encounterMercy Health West Hospital02-19-2025 NoteSam[facility]02-14-2025 Telephone encounter Note* Telephone Encounter - Letty Morales LPN - 10/16/2024 2:27 PM EST TC to Dr. Fox office, states did not receive fax. Sent again. Staff will make sure to speak withDr. Fox. Letty Morales LPN [facility]02-14-2025 Miscellaneous Notes* Telephone Encounter - Letty Morales LPN - 10/16/2024 2:27 PM EST TC to Dr. Fox office, states did [...] we'll let her know. We could use [facility] lab. She can still take flexeril. Michelle Chin APRN.CIVIL [employer]INEER [employer]AND [employer]ELOPMENT * Telephone Encounter - Letty Morales LPN - 09/25/2024 4:26 PM EST TC to pt who had questions about flexeril, she has been taking it every night to see if it helps with the leg spasms. Wonders if she can still take this or if she will need to stop them. Is okay withincreasing the gabapentin, uses [facility] in [place]. Aware we need to talk to Dr. Betancourt. Has upcoming appts with PCP and pain management. Is okay to do a sleep study using [facility] but is unable to travel out of town very far. Letty Morales LPN * Telephone Encounter - Michelle Chin APRN.DEBORAH - 09/25/2024 3:52 PM EST Please CALL pt and tell her I reviewed her case with Dr Jiménez. --We looked at her [facility] sleep study report--Dr Jiménez believes she [...] do thatwould she consider going to a [facility] sleep lab? Michelle Chin APRN.CIVIL ENGINEER LAND DEVELOPMENT documented in this encounterMercy Health West Hospital02-11-2025 NoteSam[facility]02-11-2025 History of Present illness Narrative* Cynthia Ramos [...] Plan: As above Has been working with [facility] for - progressive pseudoxanthoma elasticum macular atrophy [...] management of this patient's care with the Resident/Fellow/[employer]isher [employer], if applicable. I also have reviewed and agree with the assessment and plan as stated above and agree with all of its relevant components. Cynthia Ramos MD October 13, 2024 11:05 AM documented in this encounterMercy Health West Hospital02-11-2025 NoteDate of Procedure 10/13/2024. Manager Electrical Information Turf Keeper: lino. Start time: 9:55 AM. Stop time: 9:55 AM. Notes -- OCT 10/13/2024 OD atrophy, no fluid; OS atrophy, nasal fluid stable, not in [id number] Telephone encounter Note* Telephone Encounter - Jackie Freitas MA - 10/12/2024 3:27 PM EST Patient at PCP appointment. Will have patient stop at discharge to schedule PSG. Jackie Freitas MA [facility]02-10-2025 Miscellaneous Notes* Telephone Encounter - Jackie Freitas MA - 10/12/2024 3:27 PM EST Patient at PCP appointment. Will have patient stop at discharge to schedule PSG. Jackie Freitas MA * Telephone Encounter - Michelle Chin APRN.CNP - 10/08/2024 12:55 PM EST PSG ordered. Please assist pt in scheduling it at [facility]. Michelle Chin APRN.DEBORAH * Telephone Encounter [...] advise, Dara Valdez RN documented in this encounterMercy Health West Hospital02-10-2025 NoteSam[facility]02-10-2025 History of Present illness Narrative* Ifeoma [...] her everyday life. Dr. Sparks is her toy maker/financial assistance specialist that she sees every 3 months. States she has not had a bleed in her eye at a long time, but at the same time she states she wouldn't see it at this point. Slowly progressive loss of peripheral vision. Patient also reports that she has issueswith calcified joints/arthritis. She has moved back to [place], so she can use the [employer] for going places, [employer]. She is engaged in a lot of activities, and is giving back to the community as much as she can in every way she can. She has a son in [place], and a brother near by. Her eyes [...] extremely active in the community. [place] the [employer] [place], [...] Had worked with an OT previously through [facility] in [place] previously who assisted with various techniques and [...] Maternal Aunt 55 ovarian cancer Heart Son [place] Ovarian cancer Maternal Grandmother Glaucoma No Family [...] wellbutrin Ifeoma Davis MD documented in this encounterMercy Health West Hospital02-06-2025 Telephone encounter Note * Telephone Encounter - Michelle Chin APRN.CNP - 10/08/2024 12:55 PM EST PSG ordered. Please assist pt in scheduling it at [facility]. Michelle Chin APRN.CNP [facility]02-05-2025 NoteSam[facility]itan [facility]02-05-2025 History of Present illness Narrative* Calli Duvall APRN.CNP - 10/07/2024 6:31 PM EST CC: Patient [...] this time. Denies SI or HI, states "I would never hurt myself". Also interested in home health aide which [...] Dr. Cynthia Ramos M.D. S BALLOON,UTERINE ABLATION [address] ALLERGIES Ultram [Tramadol Hcl], Darvocet A500 [Propoxyphene [...] Maternal Aunt 55 ovarian cancer Heart Son [place] Ovarian cancer Maternal Grandmother Glaucoma No Family [...] options, medications, and coordinating care. Calli Duvall APRN.CIVIL ENGINEER LAND DEVELOPMENT documented in this encounterMercy Health West Hospital02-05-2025 Telephone encounter Note * Telephone Encounter - [...] scheduled with other provider. Starla Mckeon LPN [facility]02-05-2025 Miscellaneous Notes* Telephone Encounter - Starla Mckeon [...] provider. Starla Mckeon LPN documented in this encounterMercy Health West Hospital02-05-2025 Telephone encounter Note * Telephone Encounter - Dara Valdez RN - 10/07/2024 10:57 AM EST Patient calls and states that she had talked with provider about having another sleep study done doto issues with previous sleep study. Patient calling and asking about where she should get next onedone? Patient would also like to get this scheduled. Please review and advise, Dara Valdez RN [facility]01-28-2025 NoteSamaritan Hospital01-28-2025 History of Present illness Narrative* Ifeoma [...] her everyday life. Dr. Sparks is her toy maker/financial assistance specialist that she sees every 3 months. States she has not had a bleed in her eye at a long time, but at the same time she states she wouldn't see it at this point. Slowly progressive loss of peripheral vision. Patient also reports that she has issueswith calcified joints/arthritis. She has moved back to [place], so she can use the [employer] for going places, [employer]. She is engaged in a lot of activities, and is giving back to the community as much as she can in every way she can. She has a son in [place], and a brother near by. Her eyes [...] extremely active in the community. 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 Cynthia Ramos M.D. S BALLOON,UTERINE ABLATION [address] ALLERGIES Ultram [Tramadol Hcl], Darvocet A500 [Propoxyphene [...] Maternal Aunt 55 ovarian cancer Heart Son [place] Ovarian cancer Maternal Grandmother Glaucoma No Family [...] TABLET Ifeoma Davis MD documented in this encounterMercy Health West Hospital01-27-2025 Telephone encounter Note * Telephone Encounter - Letty Morales LPN - 09/28/2024 8:51 AM EST Office note faxed per request. Letty Morales LPN [facility]01-24-2025 Telephone encounter Note* Telephone Encounter - Michelle Chin APRN.DEBORAH - 09/25/2024 4:36 PM EST Please print my note and I'll write a msg to Dr Betancourt, we can fax him, then we'll let her know. We could use [facility] lab. She can still take flexeril. Michelle Chin APRN.DEBORAH [facility] Work Phone: 1(846) 103-834301-24-2025 Telephone encounter Note* Telephone Encounter - Letty Morales LPN - 09/25/2024 4:26 PM EST TC to pt who had questions about flexeril, she has been taking it every night to see if it helps with the leg spasms. Wonders if she can still take this or if she will need to stop them. Is okay withincreasing the gabapentin, uses [facility] in [place]. Aware we need to talk to Dr. Betancourt. Has upcoming appts with PCP and pain management. Is okay to do a sleep study [facility] but is unable to travel out of town very far. Letty Morales LPN [facility]01-24-2025 Telephone encounter Note* Telephone Encounter - Michelle Chin APRN.DEBORAH - 09/25/2024 3:52 PM EST Please CALL pt and tell her I reviewed her case with Dr Jiménez. --We looked at her [facility] sleep study report--Dr Jiménez believes she [...] do thatwould she consider going to a [facility] sleep lab? Michelle Chin APRN.DEBORAH [facility]01-23-2025 History of Present illness Narrative* Michelle Chin APRN.DEBORAH - 09/24/2024 3:00 PM EST Images from the original note were not included. Addendum: I reviewed her case with Dr Jiménez. We looked at her [facility] sleep study report including hypnogram--Dr Jiménez [...] F sleep lab but she would requirea cmv driver due to her blindness. Michelle Chin APRN.DEBORAH [facility] New Patient Evaluation [...] gabapentin at HS. Had a PSG at [facility] -- didn't meet criteria for DAYSI using [...] was told it looked like she was "riding bicycle" all night A Polysomnogram performed on 07/22/24 at [facility] revealed an AHI of 8.1 (3%) [...] Dr. Cynthia Ramos M.D. S BALLOON,UTERINE ABLATION [address] ACTIVE PROBLEM LIST Patellar Tendinitis Pxe (Pseudoxanthoma [...] Maternal Aunt 55 ovarian cancer Heart Son [place] Ovarian cancer Maternal Grandmother Glaucoma No Family [...] leg movements in her sleep. PSG at [facility] didn't show significant arousals from PLMs [...] then call pt with plan Michelle Chin APRN.CIVIL ENGINEER LAND DEVELOPMENT I spent a total of 60+ minutes on the date of the service which included preparing to see the patient, [id number] patient care, completing clinical documentation, obtaining and/or reviewing separately obtained history, performing a medically appropriate examination, counseling and educating the pa tient/family/caregiver, and communicating with other HCPs (not separately reported). documented in this encounterMercy Health West Hospital01-23-2025 NoteSamaritan Hospital01-14-2025 NoteSamaritan Hospital01-14-2025 History of Present illness Narrative* Destiney Mckeon APRN.CIVIL ENGINEER LAND DEVELOPMENT - 09/15/2024 10:04 AM EST Allie Lynn [...] L3 SAB0 IAB0 Ectopic0 Multiple0 Live Births0 Manager Industrial History LMP: Ablation Age at Menarche: Age at First : Age at Menopause: Manager Industrial History Comments: Sexual Activity: Not Currently; Male [...] Dr. Cynthia Ramos M.D. S BALLOON,UTERINE ABLATION [address] FAMILY HISTORY Problem Relation Age of Onset Heart Father Age 61 Heart Maternal Grandfather Cancer Paternal Grandmother Breast Cancer Maternal Aunt 55 ovarian cancer Heart Son [place] Ovarian cancer Maternal Grandmother Glaucoma No Family [...] Level: 3 - Low documented in this encounterMercy Health West Hospital01-07-2025 Telephone encounter Note * Telephone Encounter - Nikkie Awad - 09/08/2024 10:03 AM EST Allie is calling Ifeoma Davis MD today with concern regarding Refill Request Patient calling and states that her mail order pharmacy called and told her that she needs refills on just about all of her medications. 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 PHARMACY: [facility]. Patient is asking for Flonase right away and be sent to [facility]. Patient has been identified by name and birthdate. Duration of symptoms: N/A Person calling: self Call patient at: on cell [phone] (home) [phone] (cell) Was an appointment scheduled: No Closing statement: Results or non-symptom based questions: Thank you for calling [facility], your call will be returned within the next business day. Nikkie Awad [facility]01-07-2025 Miscellaneous Notes* Telephone Encounter - Nikkie Awad [...] Flonase right away and be sent to [facility]. Patient has been identified by name and birthdate. Duration of symptoms: N/A Person calling: self Call patient at: on cell [phone] (home) [phone] (cell) Was an appointment scheduled: No Closing statement: Results or non-symptom based questions: Thank you for calling [facility], your call will be returned within the next business day. Nikkie Awad documented in this encounterMercy Health West Hospital12-12-2024 Telephone encounter Note * Telephone Encounter - David Anna APRN.CNP - 08/13/2024 7:09 AM EST She has an upcoming appointment with Dr. Davis next week. Have her take a few blood pressures different days after sitting to rest for a good 5 minutes and can bring readings to appointment to reviewwith her. Thank you David Anna APRN.CNP [facility]12-12-2024 Miscellaneous Notes* Telephone Encounter - David Anna APRN.CNP - 08/13/2024 7:09 AM EST She has an upcoming appointment with Dr. Davis next week. Have her take a few blood pressures different days after sitting to rest for a good 5 minutes and can bring readings to appointment to reviewwith her. Thank you David Anna APRN.DEBORAH * Telephone Encounter - Virginia Lorenz MA [...] BP 158/88 HR 102 documented in this encounterMercy Health West Hospital12-11-2024 Telephone encounter Note * Telephone Encounter - Virginia Lorenz MA - 08/12/2024 2:30 PM EST Spoke with patient regarding below. After reviewing, it looks like patient was called on 08/10 by Patient Outreach and patient outreach MA instructed patient to call in readings. See 08/10/24 patient outreach. Virginia Lorenz MA [facility]12-11-2024 Telephone encounter Note* Telephone Encounter - Tori Morales MA - 08/12/2024 2:09 PM EST Left message for return call. [facility]12-11-2024 Telephone encounter Note* Telephone Encounter - David Anna APRN.CNP - 08/12/2024 1:30 PM EST That is higher then we would like to see. I do not see anything in the chart instructing her to do so. What is going on that she was asked to do this and by whom? Thank you David Anna APRN.CIVIL ENGINEER LAND DEVELOPMENT [facility]12-11-2024 Telephone encounter Note* Telephone Encounter - Emily Prieto LPN - 08/12/2024 11:17 AM EST Patient calling, states she was instructed to call in with 3 separate BP readings today. 9:17am BP 155/82 HR 89 10:25am BP 146/88 HR 91 11:12am BP 158/88 HR 102 [facility]12-09-2024 NoteSamaritan Hospital12-09-2024 History of Present illness Narrative* Akanksha Ross MA - 08/10/2024 11:21 AM EST POPULATION HEALTH NAVIGATION OUTREACH Action/FYI Patient is on [facility] CURRENT ROSTER Workbench list [...] call navigator back HCC related Navigation Signature: Akanksha Ross MA August 10, 2024 11:21 AM documented in this encounterMercy Health West Hospital12-04-2024 Telephone encounter Note * Telephone Encounter - Virginia Lorenz MA - 08/05/2024 11:08 AM EST Spoke with sleep/neuro nurse here in [facility]. [facility] not at this location anymore. However, [facility] and [facility] can come to patients home and set up machine and instruct patient. Patient notified of the above and will contact insurance to inquire if they are in network. Pt willcall back and let us know where to send the order. Virginia Lorenz MA [facility]12-04-2024 Miscellaneous Notes* Telephone Encounter - Virginia Lorenz MA - 08/05/2024 11:08 AM EST Spoke with sleep/neuro nurse here in [facility]. [facility] clinic not at this location anymore. [...] her she would need to call her [employer] and find out the DME they use and call us back. I said it looked like Dr Davis knew about the [facility] clinic to help her to use [...] a CPAP machine and work with the [facility] clinic to help her to use it. For periodic limb movement disorders we could see if the treatment of sleep apnea would help with that symptom and if it does not we can revisit it in the future. Regards, Ifeoma Davis MD * Telephone Encounter - Virginia Lorenz MA - 07/27/2024 1:05 PM EST Printed from [employer] and placed on PCP desk. Virginia Lorenz [...] she had a sleep study done at [facility] and would like the results. Pt reports she cannot access the results. Sarahi Dawkins LPN documented in this encounterMercy Health West Hospital12-04-2024 Telephone encounter Note * Telephone Encounter - Spring Peñaloza RN - 08/05/2024 10:32 AM EST Pt called in and reports she wasn't able to get in to sleep medicine until 10/07/24. Pt is wanting toget CPAP machine before then. I told her she would need to call her [employer] and find out the DME they use and call us back. I said it looked like Dr Davis knew about the [facility] clinic to help her to use it as she is legally blind, so she would need to set that up. Pt states she is always so tired, and she doesn't want to wait until October to get it. [facility]11-27-2024 Telephone encounter Note* Telephone Encounter - Sharifa Landa - 07/29/2024 11:34 AM EST 1st attempt LVM to schedule with sleep medicine [facility]11-27-2024 Telephone encounter Note* Telephone Encounter - Virginia Lorenz MA - 07/29/2024 11:09 AM EST Allie notified and verbalized understanding. PSS, please contact patient to schedule with Sleep Medicine. Virginia Lorenz MA [facility]11-26-2024 Telephone encounter Note* Telephone Encounter - Ifeoma Davis MD - 07/28/2024 4:41 PM EST I understand her hesitancy. Because of her limitations I would like her to see sleep medicine as they might consider other methodologies like the inspire or dental appliances. RegardsIfeoma MD [place] [address]-26-2024 Telephone encounter Note* Telephone Encounter - Virginia Lorenz MA - 07/28/2024 9:37 AM EST Patient notified and verbalized understanding. Patient asking if PCP feels that she would be able to do this herself with her vision. Putting the mask on, etc. Virginia Lorenz MA [facility]11-25-2024 Telephone encounter Note* Telephone Encounter - Ifeoma Davis MD - 07/27/2024 6:32 PM EST Please let patient know that she mild sleep apnea and she also likely has periodic limb movement disorder. The ideal treatment would be a CPAP machine. If she is willing to try it we will send her a CPAP machine and work with the [facility] clinic to help her to use it. For periodic limb movement disorders we could see if the treatment of sleep apnea would help with that symptom and if it does not we can revisit it in the future. Regards, Ifeoma Davis MD [facility]11-25-2024 Telephone encounter Note* Telephone Encounter - Virginia Lorenz MA - 07/27/2024 1:05 PM EST Printed from [employer] and placed on PCP desk. Virginia Lorenz MA [place] [address]-25-2024 Telephone encounter Note* Telephone Encounter - David nAna APRN.CNP - 07/27/2024 12:25 PM EST We don't have the results either. Please get results then place on PCP desk to review. Thank you David Anna APRN.DEBORAH [facility]11-25-2024 Telephone encounter Note* Telephone Encounter - Sarahi Dawkins LPN - 07/27/2024 10:40 AM EST Pt calls to report she had a sleep study done at [facility] and would like the results. Pt reports she cannot access the results. Sarahi Dawkins LPN [facility]11-08-2024 Telephone encounter Note* Telephone Encounter - Angelica Arreola RN - 07/10/2024 9:15 AM EST [facility] Central Scheduling calling and states they have received a non-signed sleep study order for mutual patient. Requesting a signed order. Signed order faxed to [phone] as requested. Angelica Arreola RN [facility]11-08-2024 Miscellaneous Notes* Telephone Encounter - Angelica Arreola RN - 07/10/2024 9:15 AM EST [facility] Central Scheduling calling and states they have received a non-signed sleep study order for mutual patient. Requesting a signed order. Signed order faxed to [phone] as requested. Angelica Arreola RN documented in this encounterMercy Health West Hospital11-07-2024 Telephone encounter Note * Telephone Encounter - Janet Meza LPN - 07/09/2024 2:11 PM EST Called and spoke to patient would prefer [facility] d/t legally blind. Faxed order and facesheet to [facility] sleep study Janet Meza LPN July 09, 2024 2:18 PM [facility]11-07-2024 Miscellaneous Notes* Telephone Encounter - Janet Meza LPN - 07/09/2024 2:11 PM EST Called and spoke to patient would prefer [facility] d/t legally blind. Faxed order and facesheet to [facility] sleep study Janet Meza LPN July 09, 2024 2:18 PM * Telephone Encounter - Ifeoma Davis MD - 07/09/2024 1:27 PM EST Staff, Please co ordinate with her to get her sleep study done in the sleep lab. [place] may be easier forher. Regards, Ifeoma Davis MD * Telephone Encounter - Angelica Arreola RN - 07/08/2024 11:07 AM EST Patient returned call. Patient states yes, she is willing to do an in house test. States she is "willing to do whatever Dr. Davis thinks is best". Please call patient with response or any [...] calling: self Call patient at: at home [phone] (home) [phone] (cell) Was an appointment scheduled: No Closing statement: Results or non-symptom based questions: Thank you for [facility], your call will be returned within the next business day. Myra Mathur documented in this encounterMercy Health West Hospital11-07-2024 Telephone encounter Note * Telephone Encounter - Ifeoma Davis MD - 07/09/2024 1:27 PM EST Staff, Please co ordinate with her to get her sleep study done in the sleep lab. [place] may be easier forher. Regards, Ifeoma Davis MD [facility]11-07-2024 Telephone encounter Note* Telephone Encounter - Judith Quach LPN - 07/09/2024 7:30 AM EST Patient given results and verbalized understanding of instructions given. Judith Quach LPN [facility]11-07-2024 Miscellaneous Notes* Telephone Encounter - Judith Quach LPN - 07/09/2024 7:30 AM EST Patient given results and verbalized understanding of instructions given. Judith Quach LPN * Telephone Encounter - Adriana Vidal APRN.CNP - 07/09/2024 7:16 AM EST Please notify that covid/flu/rsv testing negative. Continue with plan of care as discussed during visit. documented in this encounterMercy Health West Hospital11-07-2024 Telephone encounter Note * Telephone Encounter - Adriana Vidal APRN.CNP - 07/09/2024 7:16 AM EST Please notify that covid/flu/rsv testing negative. Continue with plan of care as discussed during visit. [facility] Work Phone: 1(297) 614-201111-06-2024 NoteSamaritan Hospital11-06-2024 History of Present illness Narrative* Alise Dejesus APRN.CNP - 07/08/2024 5:44 PM EST CC: Patient [...] adenoma CT MAXILLOFAC/SINUS 06/29/2015 normal EGD W/O [facility] SPEC VARICIES INJ 05/30/2023 Small hiatal [...] Dr. Cynthia Ramos M.D. S BALLOON,UTERINE ABLATION [address] ALLERGIES Ultram [Tramadol Hcl], Darvocet A500 [Propoxyphene [...] Maternal Aunt 55 ovarian cancer Heart Son [place] Ovarian cancer Maternal Grandmother Glaucoma No Family [...] symptoms occur. Patient agreeable to treatment plan. Alise Dejesus APRN.DEBORAH documented in this encounterMercy Health West Hospital11-06-2024 Telephone encounter Note * Telephone Encounter - Angelica Arreola RN - 07/08/2024 11:07 AM EST Patient returned call. Patient states yes, she is willing to do an in house test. States she is "willing to do whatever Dr. Davis thinks is best". Please call patient with response or any new test orders. Angelica Arreola RN [facility]11-06-2024 Telephone encounter Note* Telephone Encounter - Clint Brennan RN - 07/08/2024 9:52 AM EST Phoned pt. No answer. No voicemail. [facility]11-05-2024 Telephone encounter Note* Telephone Encounter - Ifeoma Davis MD - 07/07/2024 5:13 PM EST Would she be willing for an inhouse test? Due to her blindness? Regards, Ifeoma Davis MD [facility]11-05-2024 Telephone encounter Note* Telephone Encounter - [...] calling: self Call patient at: at home [phone] (home) [phone] (cell) Was an appointment scheduled: No Closing statement: Results or non-symptom based questions: Thank you for calling [facility], your call will be returned within the next business day. Myra Mathur [facility]11-05-2024 Telephone encounter Note* Telephone Encounter - [...] Myra Mathur July 07, 2024 9:49 AM [facility]11-05-2024 Miscellaneous Notes* Telephone Encounter - Myra [...] 07, 2024 9:49 AM documented in this encounterMercy Health West Hospital10-28-2024 Telephone encounter Note * Telephone Encounter - [...] Dawkins LPN June 29, 2024 10:14 AM [facility]10-28-2024 Miscellaneous Notes* Telephone Encounter - Sarahi Dawkins [...] 29, 2024 10:14 AM documented in this encounterMercy Health West Hospital10-14-2024 History of Present illness Narrative* Chana Bridges MA - 06/15/2024 3:47 PM EDT POPULATION HEALTH NAVIGATION OUTREACH Action/FYI Med Adherence Atorvastatin: Last fill 03/04/24; 90 days - 0 refills Needs new Rx Unable to reach via phone (did not ring); UAV Navigationhart message sent Reason for Outreach Med Adherence Patient Contacted: Unable or unnecessary to reach patient: Unable to leave message MyChart message sent Navigation Signature: hCana Bridges MA June 15, 2024 3:48 PM documented in this encounterMercy Health West Hospital10-11-2024 History of Present illness Narrative* Akanksha Ross MA - 06/12/2024 9:43 AM EDT POPULATION HEALTH NAVIGATION OUTREACH Action/FYI Patient is on [facility] CURRENT ROSTER Workbench list for below and [...] Spoke to patient. Scheduled mammogram 06-18-24 in [place] Declined influenza Updated upcoming 2024 OV notes Please address due care gaps and HCC gap closure Reason for Outreach Care Gap/HCC or Scheduling Wellness Visits Care Gaps due: Breast Cancer Screening Flu Vaccine Patient Contacted: Spoke to patient/parent/or legal guardian Patient identified by name and : Yes Care Gap/HCC/Scheduling Wellness actions taken: Patient scheduled/pended orders: Breast Cancer Screening 06/18/2024 in [facility] with [facility] - Encounter for screening mammogram for malignant neoplasm of breast [Z12.31] 08/18/2024 in [facility] with CYNTHIA RAMOS 6 months VaTa and mac [facility] IFE[facility] DAVIS - 6 mo follow up; routine, Please address due care gap and HCC gap closure HCC related Navigation Signature: Akanksha Ross MA June 12, 2024 9:43 AM documented in this encounterMercy Health [facility] Hospital09-27-2024 History of Present illness Narrative* Aldair [...] Patient will notify Pharmacy Navigation Signature: Eileen Mcmanus [facility] Navigator May 29, 2024 2:07 PM Electronically signed by [facility] NavigatorEileen at 05/29/2024 2:22 PM EDT documented in this encounterMercy Health West Hospital09-12-2024 Telephone encounter Note * Telephone Encounter - [...] and have staff phone her to schedule. [phone] [facility]09-12-2024 Miscellaneous Notes* Telephone Encounter - Clint Brennan [...] and have staff phone her to schedule. [phone] documented in this encounterMercy Health West Hospital09-09-2024 Telephone encounter Note * Telephone Encounter - Khalida Agarwal - 05/11/2024 1:05 PM EDT Letter placed in mail to be mailed out to patient. Khalidaalisa Agarwal May 11, 2024 1:05 PM [facility]09-09-2024 Miscellaneous Notes* Telephone Encounter - Khalida Agarwal - 05/11/2024 1:05 PM EDT Letter placed in mail to be mailed out to patient. Khalida Stefano May 11, 2024 1:05 PM * Telephone [...] 06, 2024 3:18 PM documented in this encounterMercy Health West Hospital09-05-2024 Telephone encounter Note * Telephone Encounter - Cynthia Ramos MD - 05/07/2024 4:30 PM EDT Condition is permanent. Letter updated and forwarded to Sana. Cynthia Ramos MD 05/07/2024 4:30 PM [facility]09-04-2024 Telephone encounter Note* Telephone Encounter - Barbie Alicea - 05/06/2024 3:16 PM EDT Patient states Certificate of Blindness letter dated 04/13 requires a duration. Patient would like letter mailed once completed. Barbie Alicea May 06, 2024 3:18 PM [facility]09-03-[facility] Telephone encounter Note* Telephone Encounter - Cynthia Ramos MD - 05/05/2024 8:58 AM EDT Letter created. Please mail/fax. Cynthia Ramos MD 05/05/2024 8:58 AM [facility]09-03-2024 Miscellaneous Notes* Telephone Encounter - Cynthia Ramos [...] fax to [facility] at [phone]. Please advise Barbie Alicea May 01, 2024 11:58 AM documented in this encounterMercy Health West Hospital08-30-2024 Telephone encounter Note * Telephone Encounter - Barbie Alicea - 05/01/2024 11:56 AM EDT Patient would like a letter stating dx, and what visual acuity is. Letter is needed for patient to get extra assistance with decreased vision. Once completed fax to [facility] at [phone]. Please advise Barbie Alicea May 01, 2024 11:58 AM [facility]08-26-[facility]24 Telephone encounter Note* Telephone Encounter - Modesta [...] needed. Modesta Gallardo RN 2024 5:26 PM [facility]08-26-[facility]24 Miscellaneous Notes* Telephone Encounter - Modesta Gallardo [...] RN 2024 5:26 PM documented in this encounterMercy Health West Hospital08-13-2024 Telephone encounter Note * Telephone Encounter - Emy Hanks - 04/14/2024 1:41 PM EDT Certificate scanned and mailed to patient. [facility]08-13-2024 Miscellaneous Notes* Telephone Encounter - Emy Hanks [...] 13, 2024 1:44 PM documented in this encounterMercy Health West Hospital08-13-2024 Telephone encounter Note * Telephone Encounter - Cynthia Ramos MD - 04/14/2024 12:11 PM EDT Done. Cynthia Ramos MD 04/14/2024 12:11 PM [facility]08-12-[facility]24 Telephone encounter Note* Telephone Encounter - Khalida Agarwal - 04/13/2024 1:42 PM EDT Patient states she needs a new certificate of blindness for a handicap placard. Khalida Agarwal April 13, 2024 1:44 PM [facility]08-10-[facility] History of Present illness Narrative* Britta Gunn PA - 04/11/2024 12:02 PM EDT This note was created using [employer]. Subjective Allie Lynn is a 53 year [...] Ramos M.D. No date: S BALLOON,UTERINE ABLATION [address]351 ALLERGIES Ultram [Tramadol Hcl], Darvocet A500 [Propoxyphene [...] Maternal Aunt 55 ovarian cancer Heart Son [place] Ovarian cancer Maternal Grandmother Glaucoma No Family [...] ER evaluation. KENA Medrano documented in this encounterMercy Health West Hospital08-01-2024 Telephone encounter Note * Telephone Encounter - Lina Murillo LPN - 04/02/2024 8:17 AM EDT Patient notified of below results. Lina Murillo LPN [facility]08-01-2024 Miscellaneous Notes* Telephone Encounter - Lina Murillo LPN - 04/02/2024 8:17 AM EDT Patient notified of below results. Lina Murillo LPN * Telephone Encounter - Lina Murillo LPN - 04/02/2024 8:15 AM EDT ----- Message from Ifeoma Davis MD sent at 04/01/2024 7:07 PM EDT ----- You are negative for hep C and HIV documented in this encounterMercy Health West Hospital08-01-2024 Telephone encounter Note * Telephone Encounter - Lina Murillo LPN - 04/02/2024 8:15 AM EDT ----- Message from Ifeoma Davis MD sent at 04/01/2024 7:07 PM EDT ----- You are negative for hep C and HIV [facility]07-30-[facility] History of Present illness Narrative* Ifeoma Davis [...] her everyday life. Dr. Sparks is her toy maker/financial assistance specialist that she sees every 3 months. States she has not had a bleed in her eye at a long time, but at the same time she states she wouldn't see it at this point. Slowly progressive loss of peripheral vision. Patient also reports that she has issueswith calcified joints/arthritis. [place] has moved back to [place], so she can use the [employer] for going places, juany [employer]. She is engaged in a lot of activities, and is giving back to the community as much as she can in every way she can. She has a son in [place], and a brother near by. Her eyes [...] extremely active in the community. 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 Cynthia Ramos M.D. S BALLOON,UTERINE ABLATION [address] ALLERGIES Ultram [Tramadol Hcl], Darvocet A500 [Propoxyphene [...] Maternal Aunt 55 ovarian cancer Heart Son [place] Ovarian cancer Maternal Grandmother Glaucoma No Family History Detached Retina No Family History Macular Degen No Family History Blindness No Family History Amblyopia No Family History Social History Tobacco Use Smoking status: Never Smokeless tobacco: Never Vaping Use Vaping Use: Never used Substance Use Topics Alcohol use: No Drug use: No PHYSICAL EXAM BP 128/70 Pulse 80 Resp 16 Ht 154.9 cm (5' 1") Wt 68 kg (150 lb) BMI 28.34 [...] exercise Ifeoma Davis MD documented in this encounterCleveland [id number] History of Present illness Narrative* Cynthia Ramos [...] Plan: As above Has been working with 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 I have seen and examined this patient. I have discussed the case and the management of this patient's care with the Resident/Fellow/Finisher Wallboard And Plasterboard, if applicable. I also have reviewed and agree with the assessment and plan as stated above and agree with all of its relevant components. Cynthia Ramos MD February 18, 2024 1:35 PM documented in this encounterMercy Health West Hospital06-18-2024 NoteDate of Procedure 02/18/2024. Manager Electrical Information Turf Keeper: tri. Start time: 12:53 PM. Stop time: 1:04 PM. Notes -- OCT macula 02/18/2024 OD atrophy; OS scar/atrophy, full thickness holeZEISS 01-01-2024 Telephone encounter Note* Telephone Encounter - Calli Duvall APRN.CIVIL ENGINEER LAND DEVELOPMENT - 01/01/2024 1:16 PM EDT Prempro is prescribed by gynecology Calli Duvall APRN.CIVIL ENGINEER LAND DEVELOPMENT [facility]05-01-2024 Miscellaneous Notes* Telephone Encounter - Calli Duvall APRN.CNP - 01/01/2024 1:16 PM EDT Prempro is prescribed by gynecology Calli Duvall APRN.DEBORAH * Telephone Encounter - Allie Mcknight [...] you. Allie Mcknight LPN. documented in this encounterMercy Health West Hospital05-01-2024 Telephone encounter Note * Telephone Encounter - [...] Please advise. Thank you. Allie Mcknight LPN. [facility]04-26-[facility] Telephone encounter Note* Telephone Encounter - Tori Morales MA - 12/27/2023 9:04 AM EDT Patient notified, [facility]04-26-2024 Miscellaneous Notes* Telephone Encounter - Tori Morales MA - 12/27/2023 9:04 AM EDT Patient notified, * Telephone Encounter - David Anna APRN.CNP - 12/27/2023 7:29 AM EDT Gabapentin ordered as requested. Thank you David Anna APRN.DEBORAH * Telephone Encounter - Allie Mcknight LPN - 12/26/2023 2:02 PM EDT Patient calling to check status of request for the Gabapentin rx. She is going to [facility] via the bus and was hoping to apple picker rx while she was out. Please advise * Telephone Encounter - Allie Mcknight LPN - 12/25/2023 2:00 PM EDT Patient calling she had MRI of her right shoulder done at [facility]. She does not see Dr Brush until December 30 for possible injection or what treatment he plans to do. Patient was asking for a Gabapentin rx. She had taken it in the past. Patient said she did not have a tear, but not sure how to explain the results. 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 Patient uses [facility] for her pharmacy, can get someone to apple picker rx for her. Please advise documented in this encounterMercy Health West Hospital04-26-2024 Telephone encounter Note * Telephone Encounter - David Anna APRN.CNP - 12/27/2023 7:29 AM EDT Gabapentin ordered as requested. Thank you David Anna APRN.DEBORAH [facility]04-25-2024 Telephone encounter Note* Telephone Encounter - Allie Mkcnight LPN - 12/26/2023 2:02 PM EDT Patient calling to check status of request for the Gabapentin rx. She is going to [place] via the bus and was hoping to apple picker rx while she was out. Please advise [facility]04-24-2024 Telephone encounter Note* Telephone Encounter - Allie Mcknight LPN - 12/25/2023 2:00 PM EDT Patient calling she had MRI of her right shoulder done at [facility]. She does not see Dr Brush until December 30 for possible injection or what treatment he plans to do. Patient was asking for a Gabapentin rx. She had taken it in the past. Patient said she did not have a tear, but not sure how to explain the results. 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 Patient uses [facility] for her pharmacy, can get someone to apple picker rx for her. Please advise [facility]04-23-[facility] History of Present illness Narrative* Destiney Mckeon APRN.CIVIL ENGINEER LAND DEVELOPMENT - 12/24/2023 12:45 PM EDT Allie is a 53 year old who presents for an annual gynecologic exam without complaints. Postmenopausal: ablation 2011- no bleeding HRT use: Yes, prempro Last Pap: 07/03/2019 normal HPV: 07/01/2019 negative History of abnormal pap: Yes Last mammogram: 2023 normal History of abnormal mammogram: No Sexually active: No OB History T0 L3 SAB0 IAB0 Ectopic0 Multiple0 Live Births0 Manager Industrial History LMP: Ablation Age at Menarche: Age at First : Age at Menopause: Manager Industrial History Comments: Sexual Activity: Not Currently; Male [...] Dr. Cynthia Ramos M.D. S BALLOON,[place] ABL[place] [address] FAMILY HISTORY Problem Relation Age of Onset Heart Father Age 61 Heart Maternal Grandfather Cancer Paternal Grandmother Breast Cancer Maternal Aunt 55 ovarian cancer Heart Son [place] Ovarian cancer Maternal Grandmother Glaucoma No Family [...] medication updated:Yes EXAM: BP 126/82 Ht 4' 11.5" (1.51m) Wt 154 lb (69.9kg) BMI 30.60 [...] external genitalia normal, normal Bartholin's glands, urethra, [place]ber[place]'s glands, no vulvar lesions, no cervical lesions, [...] year or sooner as needed Destiney Mckeon APRN.CIVIL ENGINEER LAND DEVELOPMENT documented in this encounterMercy Health West Hospital03-18-2024 History of Present illness Narrative* Adriana Vidal APRN.CIVIL ENGINEER LAND DEVELOPMENT - 11/18/2023 10:45 AM EDT Subjective HPI [...] Dr. Cynthia Ramos M.D. S BALLOON,[place]INE ABLATION [address] ALLERGIES Ultram [Tramadol Hcl], Darvocet A500 [Propoxyphene [...] Maternal Aunt 55 ovarian cancer Heart Son [place] Ovarian cancer Maternal Grandmother Glaucoma No Family [...] - PREDNISONE 10 MG TABLET Adriana Vidal APRN.CIVIL ENGINEER LAND DEVELOPMENT documented in this encounterMercy Health West Hospital03-13-2024 Miscellaneous Notes* Telephone Encounter - Angelica Arreola [...] you. Angelica Arreola RN. documented in this encounterMercy Health West Hospital02-23-2024 History of Present illness Narrative* Alessandra Lora MA - 10/25/2023 9:41 AM EST POPULATION HEALTH NAVIGATION OUTREACH Action/I P/C to patient to schedule Medicare Wellness Exam, no answer. Left message for patient to return call. My chart message sent. Patient Identified by Name and : NO Outreach Outcome/Action Unable to reach patient: Left message [employer] message sent Did you use a PCP flex slot to schedule this appointment? N/A Reason for Outreach Care Gap or Scheduling/Wellness visits Payer: Payor: [facility] [employer] / Plan: [employer] MEDICARE ADVANTAGE HMO / Product Type: HMO [...] 25, 2023 9:44 AM documented in this encounterMercy Health West Hospital02-09-2024 Miscellaneous Notes* Letter - Coordinator, Mammography - 10/11/2023 1:18 PM EST October 14, 2023 PID: [id number] Allie Lynn [address] [place] [address] Dear Ms. Lynn, We are pleased to [...] report will be [facility] as part of your permanent medical record and are available for your continuing care. Thank you for allowing us to help in meeting your health care needs. Sincerely, Dr. Muñiz Interpreting Radiologist [facility] (Normal over 40) documented in this encounterMercy Health West Hospital02-08-2024 History of Present illness Narrative* Carmen Sol, Mammo Tech - 10/10/2023 12:50 PM EST [...] PATIENT PRESENTS WITH AN IMPLANTABLE OR ATTACHED PRIMER POWDER BLENDER WET: No RADIOLOGY DEPARTMENT: Mammography PERIPHERAL IV DATA: Not applicable SIGNED BY: Rubin Alicea October 10, 2023 1:08 PM documented in this encounterMercy Health West Hospital02-06-2024 Miscellaneous Notes* Telephone Encounter - Dara Valdez RN - 10/08/2023 10:43 AM EST Cande SOTOvocational education teacher at [employer] calls to report that completed health risk assessment care plan update was done and can be reviewed in availability portal. Cande states that provider can attend care team meeting by calling Cande. Dara Valdez RN documented in this encounterMercy Health West Hospital02-02-2024 History of Present illness Narrative* Mary Salinas [...] Care Gap or Scheduling/Wellness visits Payer: Payor: [facility] [employer] [facility] / Plan: [facility] MEDICARE ADVANTAGE HMO / Product Type: [...] 04, 2023 9:40 AM documented in this encounterMercy Health West Hospital12-19-2023 History of Present illness Narrative* Cynthia Ramos [...] Comment: Clear, as above Plan: As above 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 I have seen and examined this patient. I have discussed the case and the management of this patient's care with the Resident/Fellow/Finisher Wallboard And Plasterboard, if applicable. I also have reviewed and agree with the assessment and plan as stated above and agree with all of its relevant components. Cynthia Ramos MD August 16, 2023 7:06 PM documented in this encounterMercy Health West Hospital11-21-2023 Miscellaneous Notes* Telephone Encounter - Celeste Haywood [...] notify patient. Amy Adams documented in this encounterMercy Health West Hospital09-28-2023 Nurse Note* Mel Garcia RN - 05/30/2023 2:[address] Connelly at bedside to discuss procedure/findings with patient and her friend. [facility]09-28-2023 Nurse Note* Mel Garcia RN - 05/30/2023 2:[address] Connelly at bedside to discuss procedure/findings with patient and her friend. documented in this encounterMercy Health West Hospital09-28-2023 Anesthesiology Preoperative evaluation and management note* Anesthesia [...] Moderate Additional Comments: None Andry Connelly MD [facility] Work Phone: [phone]) 211-395309-28-2023 Miscellaneous Notes* Anesthesia PreOp - Andry Connelly [...] None Andry Connelly MD documented in this encounterMercy Health West Hospital09-19-2023 History of Present illness Narrative* Virginia Avalos [...] her everyday life. Dr. Sparks is her toy maker/financial assistance specialist that she sees every 3 months. States she has not had a bleed in her eye at a long time, but at the same time she states she wouldn't see it at this point. Slowly progressive loss of peripheral vision. Patient also reports that she has issueswith calcified joints/arthritis. Just sold her home here in [place] and moved to [place] with her boyfriend, and her boyfriend doesn't feel like she's entirely safe in her day to day activities. Patient called [employer] and they advised that she have a home health order placed and faxed over to them-reports she's not sure all that she can be helped with. She is extremely active in the community. 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 Cynthia Ramos M.D. S BALLOON,[place]ERINE ABLATION [address] ALLERGIES Ultram [Tramadol Hcl], Darvocet A500 [Propoxyphene [...] Maternal Aunt 55 ovarian cancer Heart Son [place] Ovarian cancer Maternal Grandmother Glaucoma No Family [...] F) Resp 12 Ht 149.9 cm (4' 11") Wt 73.9 kg (163 lb) SpO2 99% [...] once patient finds out from insurance - NON-[facility] 2. 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 Trigger finger, unspecified finger, unspecified laterality - ICD9: 727.03, ICD10: M65.30 Refills provided on meloxicam per pt request - [facility] 4. Mixed hyperlipidemia - ICD9: [...] plan. Virginia Avalos PA-C documented in this encounterMercy Health West Hospital09-06-2023 Miscellaneous Notes* Telephone Encounter - Sita Mauricio LPN - 05/08/2023 9:25 AM EDT PATIENT NOTIFIED OF SAME. * Telephone Encounter - Ariadne Zaidi APRN.CNP - 05/07/2023 4:28 PM EDT Printed, will sign, please call patient to apple picker. Thanks! * Telephone Encounter - Lina Murillo LPN - 05/07/2023 1:16 PM EDT Patient is needing to renew her handicapped placard, it expires this month. Please call when approved and ready for pickup. Lina Murillo LPN documented in this encounterMercy Health West Hospital09-01-2023 Miscellaneous Notes* Telephone Encounter - Fern Noonan [...] notify patient. Marnie Adams documented in this encounterMercy Health West Hospital08-29-2023 Instructions* Patient Instructions* aCnde Pozo PA-C - 04/30/2023 1:20 PM EDT [...] If you do not have a responsible cmv driver (family member or friend) withyou to take you home, your exam cannot be done with sedation and will be cancelled. Please bring a list of all of your current medications, including any Essk-ojx-Hubrkeb medications with you. Medications If you take [...] your exam. 2 08/2019 documented in this encounterMercy Health West Hospital08-29-2023 History of Present illness Narrative* Cande Pozo [...] Has been on Prilosec 20 mg daily "for years" with relief in her GERD, recently started [...] Abs Lymph 1.00 - 4.00 k/uL 1.42 [place]% % 9.8 Abs [place] <0.87 k/uL 0.58 Eosin% % 3.1 Abs [...] Dr. Cynthia Ramos M.D. S BALLOON,[place]ERINE ABLATION [address] Allergies: ALLERGIES Allergen Reactions Ultram [Tramadol Hc* [...] Maternal Aunt 55 ovarian cancer Heart Son [place] Ovarian cancer Maternal Grandmother Glaucoma No Family [...] 122/72 Pulse 94 Ht 149.9 cm (4' 11") Wt 73 kg (161 lb) BMI 32.52 [...] which included preparing to see the patient, [id number] patient care, completing clinical documentation, obtaining and/or reviewing separately obtained history, performing a medically appropriate examination, counseling and educating the pat ient/family/caregiver, ordering medications, tests, or procedures, communicating with other HCPs (not separately reported), independently interpreting results (not separately reported), communicatingresults to the patient/family/caregiver, and care coordination (not separately reported). Cande Pozo PA-C April 30, 2023 1:23 PM documented in this encounterMercy Health West Hospital08-24-2023 History of Present illness Narrative* Massimo Roberts MD - 04/25/2023 2:12 PM EDT Massimo Roberts MD Department of Orthopaedics Orthopaedics [address] [facility] [address] Dept: [phone] Dept April 25, 2023 CHIEF COMPLAINT: Established [...] Dr. Cynthia Ramos M.D. S BALLOON,[place]INE ABLATION [address] Medications: Current Outpatient Medications Medication Sig keTORolac [...] anxiety) Massimo Roberts MD documented in this encounterMercy Health West Hospital08-14-2023 Miscellaneous Notes* Telephone Encounter - Allie Mcknight JOLIE - 04/15/2023 1:46 PM EDT Phoned patient [...] cost. Starla Mckeon LPN documented in this encounterMercy Health West Hospital06-20-2023 History of Present illness Narrative* Cynthia Ramos [...] management of this patient's care with the Resident/Fellow/Finisher Wallboard And Plasterboard, if applicable. I also have reviewed and agree with the assessment and plan as stated above and agree with all of its relevant components. Cynthia Ramos MD February 19, 2023 3:11 PM documented in this encounterMercy Health West Hospital05-30-2023 Miscellaneous Notes* Telephone Encounter - Celeste Cardona [...] you. Celeste Cardona LPN documented in this encounterMercy Health West Hospital05-02-2023 Discharge summary Author Sharifa Morrissey [facility] January 01, 2023 12:18pm Note Date/Time January 01, 2023 12:18p [facility] [address] [place] [address]. [address] [place] [address] / REHABILITATION SERVICES DISCHARGE SUMMARY MR#: [id number] Acct: [id number] Name: ALLIE LYNN Rep #: [id number] : 1970 52 From: Sharifa Morrissey OTR/L, CHT Referring : Status: REG RCR Eval Date: Discharge Date: It has been my pleasure to treat ALLIE LYNN under orders from TAINA FAN, for the diagnosis of right RF trigger finger and left MF trigger finger for a total of 4 visit(s). Please see the following information for a summary of their discharge status. % Improvement: 80 Objective/Function: right port warden strength 50#. left port warden strength 40# ([place] completed previous to port warden). right RF PIP -5/45. left MF PIP -15/50 Patient Goals: Regain Mobility, Regain Strength, Decrease Pain, Use Hand/Wrist/Arm Normally Again Goal:Daily scar massage when approriate: Yes Goal:ROM equal to unaffected hand: Yes Goal:Clinical Lab Scientist/Pinch strength at least 75% of unaffected hand: [...] please fell free to call me at [phone]. Thank you for the referral of this patient. Sincerely, RAVEN Her/ISABELLA Mcmanus <Electronically signed by Sharifa CARBAJAL/ISABELLA Mcmanus> 01/01/23 1214 CC: Dr. Ifeoma Davis MD; TAINA FAN ~ MK Signed [facility] Work Phone: [phone]) 361-672004-12-2023 Miscellaneous Notes* Telephone Encounter - Celeste Cardona JOLIE - 12/12/2022 1:19 PM EDT Patient [...] RX INSTRUCTIONS: Patient needs 14 days to [facility] today - she is going today to [facility] and since she cannot drive due to legally blind, please send JUVE so she can apple picker while at [facility] this morning. Please send 90 days to [facility] Rx Mail order. Please call patient once 14 days is sent to [facility]. Patient aware RX will be sent to pharmacy. No need to notify patient. Patient aware RX escripted to mail away pharmacy. No need to notify patient. Melly Prado Pss' documented in this encounterMercy [facility] Hospital04-04-2023 Instructions* Patient Instructions* Cynthia Ramos MD - 12/04/2022 11:15 AM EDT Continue Prednisolone (pink/white) 1 drop LEFT eye 4 x daily Continue Ketorolac (saunders) 1 drop LEFT eye 4 x daily OK to use refresh or gel drop documented in this encounterMercy Health West Hospital04-04-2023 History of Present illness Narrative* Cynthia Ramos [...] management of this patient's care with the Resident/Fellow/Finisher Wallboard And Plasterboard, if applicable. I also have reviewed and agree with the assessment and plan as stated above and agree with all of its relevant components. Cynthia Ramos MD December 04, 2022 11:14 AM documented in this encounterMercy Health West Hospital03-23-2023 Instructions* Patient Instructions* Cynthia Ramos MD - 11/22/2022 12:23 PM EDT STOP Polymyxin trimethoprim (clear/white) Continue Prednisolone (pink/white) 1 drop LEFT eye 4 x daily Continue Ketorolac (saunders) 1 drop LEFT eye 4 x daily OK to use refresh OK to stop documented in this encounterMercy Health West Hospital03-23-2023 History of Present illness Narrative* Cynthia Ramos [...] management of this patient's care with the Resident/Fellow/Finisher Wallboard And Plasterboard, if applicable. I also have reviewed and [...] management of this patient's care with the Resident/Fellow/Finisher Wallboard And Plasterboard, if applicable. I also have reviewed and agree with the assessment and plan as stated above and agree with all of its relevant components. Cynthia Ramos MD September 25, 2022 3:18 PM documented in this encounterMercy Health West Hospital03-20-2023 Miscellaneous Notes* Telephone Encounter - Henrik Chen MD - 11/19/2022 6:38 PM EDT Call from Allie Juli Lynn via answering service on 11/17/2022. At [...] Saturday evening dileep seen. She lives in [place] and does not have transportation available. We discussed being seen at the ED for evaluation and potential evaluation by an toy maker from [facility]. I advised that if she is not seen in the ED on 11/18/2022 that she either follow-up with Dr. Torres in the [facility] office or contact [facility] to be seen there. She has seen doctors at that office in the past. Henrik Chen MD documented in this encounterMercy Health West Hospital03-20-2023 History of Present illness Narrative* Valentine Torres, [...] 19, 2022 3:49 PM documented in this encounterMercy Health West Hospital03-20-2023 Miscellaneous Notes* Telephone Encounter - Khalida Agarwal [...] develops new flashes or floaters. As the [place] doctor discussed with her, this can sometimes occur and we can often treat it with alaser in the office. We can discuss at her next appointment. Cynthia Ramos MD 11/19/2022 3:31 PM * Telephone Encounter - Khalida Agarwal - 11/19/2022 9:46 AM EDT Received office notes from [place]. Patient was seen on 11/18 at [place] [facility] regarding abnormal pupil and hemorrhage OS. Per [...] and she was also seen at the [place] [facility]. She states that the doctor at that office removed eye patch and noticed a "cosmetic issue"where "vitreous gel landed below pupil". I asked patient to have [place] over their notes so I can forward information to our clinical team to review to see if she should be seen sooner than her scheduled appointment on . I offered an appointment with a provider today but she would liketo wait for clinical to review office notes. Will update when notes are received. Khalida Agarwal November 19, 2022 8:36 AM documented in this encounterMercy Health West Hospital03-20-2023 History of Present illness Narrative* Taina Fan PA-C - 11/19/2022 2:59 PM EDT Taina Fan PA-C Department of Orthopaedics Orthopaedics [address] [facility] [place] [address] Dept: [phone] Dept November 19, 2022 CHIEF COMPLAINT: Established [...] on the right, also complains of a "lump" on the right. She is having difficulty with range of motion on the left middle digit. Denies any locking or catching just inability to form a loose fist. I feel she would benef it from some occupational therapy, order for OT was placed and faxed to [facility]. We discussed proper hand washing, no soaking [...] [Hydrocodone-Acetaminophen] This note was partially generated using Vimty voice recognition system, and there may be [...] site. Alis Eid LPN documented in this encounterMercy Health West Hospital03-17-2023 Instructions* Patient Instructions* Cynthia Ramos MD - [...] Shadow in peripheral vision documented in this encounterMercy Health West Hospital03-17-2023 History of Present illness Narrative* Cynthia Ramos [...] management of this patient's care with the Resident/Fellow/Finisher Wallboard And Plasterboard, if applicable. I also have reviewed and [...] management of this patient's care with the Resident/Fellow/Finisher Wallboard And Plasterboard, if applicable. I also have reviewed and agree with the assessment and plan as stated above and agree with all of its relevant components. Cynthia Ramos MD September 25, 2022 3:18 PM documented in this encounterMercy Health West Hospital03-16-2023 History of Past illness Narrative* Problem Noted Date Resolved Date Nuclear senile cataract of left eye 11/15/2022 11/15/2022 Combined 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 06/25/2022 06/25/2022 Photopsia 06/25/2022 06/25/2022 documented as of this encounter (statuses as of 11/16/2022) [facility] of Past illness Narrative* Problem Noted Date Resolved Date Nuclear senile cataract of left eye 11/15/2022 11/15/2022 Combined 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 06/25/2022 06/25/2022 Photopsia 06/25/2022 06/25/2022 documented as of this encounter (statuses as of 11/19/2022) [facility] of Past illness Narrative* Problem Noted Date Resolved Date Nuclear senile cataract of left eye 11/15/2022 11/15/2022 Combined 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 06/25/2022 06/25/2022 Photopsia 06/25/2022 06/25/2022 documented as of this encounter (statuses as of 11/20/2022) [facility] of Past illness Narrative* Problem Noted Date Resolved Date Nuclear senile cataract of left eye 11/15/2022 11/15/2022 Combined 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 06/25/2022 06/25/2022 Photopsia 06/25/2022 06/25/2022 documented as of this encounter (statuses as of 11/20/2022) [facility] of Past illness Narrative* Problem Noted Date Resolved Date Nuclear senile cataract of left eye 11/15/2022 11/15/2022 Combined 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 06/25/2022 06/25/2022 Photopsia 06/25/2022 06/25/2022 documented as of this encounter (statuses as of 11/26/2022) [address]16-2023 History of Past illness Narrative* Problem Noted Date Resolved Date Nuclear senile cataract of left eye 11/15/2022 11/15/2022 Combined 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 06/25/2022 06/25/2022 Photopsia 06/25/2022 06/25/2022 documented as of this encounter (statuses as of 12/02/2022) [address]16-2023 History of Past illness Narrative* Problem Noted Date Resolved Date Nuclear senile cataract of left eye 11/15/2022 11/15/2022 Combined 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 06/25/2022 06/25/2022 Photopsia 06/25/2022 06/25/2022 documented as of this encounter (statuses as of 12/05/2022) [address]16-2023 History of Past illness Narrative* Problem Noted Date Resolved Date Nuclear senile cataract of left eye 11/15/2022 11/15/2022 Combined 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 06/25/2022 06/25/2022 Photopsia 06/25/2022 06/25/2022 documented as of this encounter (statuses as of 12/13/2022) [address]16-2023 History of Past illness Narrative* Problem Noted [...] of this encounter (statuses as of 01/30/2023) [address]16-2023 History of Past illness Narrative* Problem Noted [...] of this encounter (statuses as of 02/21/2023) [facility] Narrative* Problem Noted [...] of this encounter (statuses as of 04/16/2023) [facility] Narrative* Problem Noted [...] of this encounter (statuses as of 04/30/2023) [facility] Narrative* Problem Noted [...] of this encounter (statuses as of 05/03/2023) [facility] Narrative* Problem Noted [...] of this encounter (statuses as of 05/08/2023) [facility] Narrative* Problem Noted [...] of this encounter (statuses as of 05/23/2023) [facility] Narrative* Problem Noted [...] of this encounter (statuses as of 05/28/2023) [facility] Narrative* Problem Noted [...] of this encounter (statuses as of 06/25/2023) [facility] Narrative* Problem Noted [...] of this encounter (statuses as of 07/24/2023) [facility] Narrative* Problem Noted [...] of this encounter (statuses as of 09/02/2023) [facility] Narrative* Problem Noted [...] of this encounter (statuses as of 10/04/2023) [facility] Narrative* Problem Noted [...] of this encounter (statuses as of 10/08/2023) [facility] Narrative* Problem Noted [...] of this encounter (statuses as of 10/11/2023) [facility] Narrative* Problem Noted [...] of this encounter (statuses as of 10/15/2023) [facility] Narrative* Problem Noted [...] of this encounter (statuses as of 10/25/2023) [facility] Narrative* Problem Noted [...] of this encounter (statuses as of 11/13/2023) [facility] Narrative* Problem Noted [...] of this encounter (statuses as of 11/18/2023) [facility] Narrative* Problem Noted [...] of this encounter (statuses as of 05/22/2023) [facility] Miscellaneous Notes* Telephone Encounter - Mauricio Guzmannicholas - 11/13/2022 3:36 PM EDT Called and informed patient to arrive at [address] [place] [address] at 10:45 am for 11/15/22 surgerywith Cynthia Ramos MD. Also reminded patient to refrain from eating or drinking for 8 hours prior to arrival for surgery, and to begin eyedrops in the left eye on 11/13/22. Patient states understanding and is agreeable. documented in this encounterMercy Health West Hospital03-06-2023 Miscellaneous Notes* Telephone Encounter - Chana Mao Ma - 11/05/2022 11:19 AM EST I called and spoke with patient. She will apple picker more hibiclens. Packet left at Ortho front office medical assistant. * Telephone Encounter - Natasha Jurado LPN - 11/05/2022 10:28 AM EST Patient called. Verified name and date of . Patient states she has surgery scheduled Saturdayand misplaced the packet of hand machine rug cleaner needed for the day of surgery. Can patient apple picker anotherpacket? Natasha Jurado LPN documented in this encounterMercy Health West Hospital03-03-2023 Miscellaneous Notes* Telephone Encounter - Chana Mao [...] phone call back Please advise patient at [phone]. Thank you Mary Cochran LPN documented in this encounterMercy Health West Hospital03-01-2023 NoteHNO ID: [id number] Author: Michelle Perez OT/L Service: ? Author [...] Planned: 6 Planned Treatment Interventions: Therapeutic exercise (92688), Self-jail management (65150), Patient/Family/Caregiver Education, Functional training, Community / Work Reintegration PLAN FOR NEXT VISIT: FOLLOW UP ON SELF PERFORMANCE ASSESSMENT FOR ADLS/IADLS AND ADDRESS SAME and ADDRESS ECCENTRIC FIXATION SUBJECTIVE: Patient reported that she has a "lot going on" this date. She reported that she used [...] COMPLETED. Skilled Intervention: Patient education as noted. Self-Penitentiary Management: 1: COOKING: provided her with black [...] procedure. She is pursuing financial assistance from "[employer]" IN [place] and has the letter with equipment recommendations [...] DROPS: she practiced simulated use of the "AUTO EYE DROPPER" and issued same to her to use [...] to her. 6: TO INCREASE PARTICIPATION WITH [employer]:- trialed the [employer] "MAX TV GLASSES" and was able to pick out signs, traffic, people outside when trialing same. Reviewed cleaning, and care instructions for taking care of them. She is wanting to borrow these for watching tv, seeing screens at her adventism to increase active participation with same. She id understanding instructions and accurately adjusted the focal distance with the lenses after practicing with same. 7: PROCURING OPTICAL AIDS/DEVICES: as id. above, did review her paperwork and recommendations made: *contact [employer] services in [facility] to verify need of needing two written estimates;*if she does require two estimates then she was provided with another agency to assist w/ selling the recommended devices ("[employer] MORE") and (more content not included)...[facility]03-01-2023 History of Present illness Narrative * [...] Planned: 6 Planned Treatment Interventions: Therapeutic exercise (75287), Self-jail management (78614), Patient/Family/Caregiver Education, Functional training, Community / Work Reintegration PLAN FOR NEXT VISIT: FOLLOW UP ON SELF PERFORMANCE ASSESSMENT FOR ADLS/IADLS AND ADDRESS SAME and ADDRESS ECCENTRIC FIXATION SUBJECTIVE: Patient reported that she has a "lot going on" this date. She reported that she used [...] COMPLETED. Skilled Intervention: Patient education as noted. Self-Penitentiary Management: 1: COOKING: provided her with black [...] procedure. She is pursuing financial assistance from "[employer]" IN [place] and has the letter with equipment recommendations [...] DROPS: she practiced simulated use of the "AUTO EYE D ROPPER" and issued same to her to use [...] to her. 6: TO INCREASE PARTICIPATION WITH [employer] SERVICES:- trialed the [employer] "MAX TV GLASSES" and wasable to pick out signs, traffic, people outside when trialing same. Reviewed cleaning, and care instructions for taking care of them. She is wanting to borrow these for watching tv, seeing screens ather adventism to increase active participation with same. She id understanding instructions and accurately adjusted the focal distance with the lenses after practicing with same. 7: PROCURING OPTICAL AIDS/DEVICES: as id. above, did review her paperwork and recommendations made:*contact [employer] services in [facility] to verify need of needing two written estimates;*if she does require two estimates then she was provided with another agency to assist w/ selling the recommended devices ("[employer]") and will provide her with contact information if in fact this is required. 8: FUNCTIONAL TRANSFERS: IN/OUT OF TUB:, id. difficulty "getting my bearings after I rinse my hair off by tilting my head backwards". Instruction provided to flex head forward to rinse, and to consider additional support from a wall mounted grab bar when transfering out of shower/tub area. She was provided with demonstration of suction cup grab bar but also educated that this is NOT as safe as wall mounted and should only be considered for "supporting self" and NOT pulling self up/out. She was [...] Planned: 6 Planned Treatment Interventions: Therapeutic exercise (80215), Self-jail management (15701), Patient/Family/Caregiver Education, Functional training, Community / Work [...] 77 Michelle Perez OT/L documented in this encounterMercy Health West Hospital02-24-2023 Miscellaneous Notes* Telephone Encounter - Viviana Cochran - 10/26/2022 9:40 AM EST Patient left message in surgery scheduling to reschedule 10/29/22 IOL measurements (ascan). Called patient and offered 11/08/22 at 8:30 am. Patient declines due to has hand surgery the day before. States she will arrange transportation with a family member (called [employer] too late to set up through them). Will keep 10/29/22 as scheduled. documented in this encounterMercy Health West Hospital02-21-2023 History of Present illness Narrative* Mel Fleming [...] 23, 2022 4:42 PM documented in this encounterMercy Health West Hospital02-15-2023 NoteHNO ID: [id number] Author: Michelle Perez OT/Yonathan Service: ? Author Type: Occupational Therapist Type: [...] OBJECTIVE MEASURES WITH LEVEL OF FUNCTION: TREATMENT: Self-Penitentiary Management: 1: FUNCTIONAL COMMUNICATION TRAINING: reading recipe/grocery [...] level with same. She was provided needle manager industrial, and pre threaded needles with colored thread [...] clips. 6: Threading a needle/sewing: issued needle manager industrial and self threaded needles and with use of the floor stand JIM LITE she will practice with same but did not formally have her practice on this date. Provided instruction and education and demonstration and she was familiar w/ the filament needle manager industrial presented. 7: Eating neatly: on the self performance assessment she reported minimal assist/difficulty but w/ further interview she denies difficulty with eating and self feeding and denies difficulty with cutting/spreading foods or seasoning items. Instructed her to put seasoning in to her open hand and then sprinkle on to food. She was instructed to review the patient education materials for "EATING OUT" for further ideas/recommendations to be considered if needed in t (more content not included)...[facility] 10-17-2022 History of Present illness Narrative* Michelle Perez OT/L - 10/17/2022 10:38 AM EST Episode [...] OBJECTIVE MEASURES WITH LEVEL OF FUNCTION: TREATMENT: Self-Penitentiary Management: 1: FUNCTIONAL COMMUNICATION TRAINING: reading recipe/grocery [...] level with same. She was provided needle manager industrial, and pre threaded needles with colored thread [...] glare: she did find that the light emiilano fit over filters were beneficial for outside [...] clips. 6: Threading a needle/sewing: issued needle manager industrial and self threaded needles and with use of the floor stand JIM YOHAN she will practice with same but did not formally have her practice on this date. Provided instruction and education and demonstration and she was familiar w/ the filament needle manager industrial presented. 7: Eating neatly: on the self performance assessment she reported minimal assist/difficulty but w/ further interview she denies difficulty with eating and self feeding and denies difficulty with cutting/spreading foods or seasoning items. Instructed her to put seasoning in to her open hand and thensprinkle on to food. She was instructed to review the patient education materials for "EATING OUT" for further ideas/recommendations to be considered if [...] CLINIC AND TO PRACTICE WITH SAME (HER PATROL COMMUNITY SERVICE OFFICER WILL CARRY THIS IN FOR HER D/T INCREASED WEIGHT IN ORDER TO ENSURE HER SAFETY) AND WILL CONT. TO BORROW THE LIGHT EMILIANO FIT OVER FILTERS. WAS ISSUED ADDITIONAL BOLD LINE PAPER TABLETS, SOCK CLIPS, NEEDLE AREA MECHANIC, SELF THREADED NEEDLES AND A LED [...] 69 Michelle Perez OT/L documented in this encounterMercy Health West Hospital02-14-2023 History of Present illness Narrative* Ifeoma Davis [...] EXTRACAP,INSERT LENS Right 06/25/2022 S BALLOON,UTERINE ABLATION [id number] FAMILY HISTORY Problem Relation Age of Onset Heart Father Age 61 Heart Maternal Grandfather Cancer Paternal Grandmother Breast Cancer Maternal Aunt 55 ovarian cancer Heart Son [place] Ovarian cancer Maternal Grandmother Glaucoma No Family [...] remaining Ifeoma Davis MD documented in this encounterMercy Health West Hospital02-07-2023 History of Present illness Narrative* Brunilda Torres [...] 09, 2022 12:50 PM documented in this encounterMercy Health West Hospital02-02-2023 Miscellaneous Notes* Telephone Encounter - Clint Brennan [...] can not drive and can have friend apple picker rx. Patient is asking for Zhong[place]uck rx to be sent to [place] please. Please advise documented in this encounterMercy Health West Hospital01-31-2023 Miscellaneous Notes* Telephone Encounter - Chana Mao Ma - 10/02/2022 8:44 AM EST Surgery has been scheduled as requested. * Telephone Encounter - Chana Mao Ma - 10/01/2022 4:00 PM EST Surgical request completed for right ring and left middle trigger finger releases at [facility] on 11/02/2022. Post op appointments have been scheduled and mailed to patient. documented in this encounterMercy Health West Hospital01-30-2023 History of Present illness Narrative* Massimo Roberts MD - 10/01/2022 2:19 PM EST Massimo Roberts MD Department of Orthopaedics Orthopaedics [address] [facility] [address] Dept: [phone] Dept October 01, 2022 CHIEF COMPLAINT: Established [...] EXTRACAP,INSERT LENS Right 06/25/2022 S BALLOON,UTERINE ABLATION [id number] Medications: Current Outpatient Medications Medication Sig mometasone [...] anxiety) Massimo Roberts MD documented in this encounterMercy Health West Hospital01-30-2023 History of Present illness Narrative* Laura Pimentel, [...] 01, 2022 2:16 PM documented in this encounterMercy Health West Hospital01-27-2023 Miscellaneous Notes* Letter - Mammography Coordinator - 09/28/2022 3:14 PM EST October 01, 2022 PID: [id number] [place] [address] [place] [phone] Dear Ms. Lynn, Your recent breast imaging exam on 09/27/2022 showed a possible finding that requires additional imaging studies for a complete evaluation. Most such findings are probably benign (not cancer). If you have a healthcare provider who ordered/prescribed your screening mammogram: Please call [phone] or EXT: [phone] to schedule an appointment for your additional [...] and reports are [facility] as part of [facility] permanent medical record, and are available for your continuing care. Thank you for allowing us to help in meeting your health care needs. Sincerely, Dr. Osei Interpreting Radiologist [facility] (Additional imaging) documented in this encounterMercy Health West Hospital01-26-2023 History of Present illness Narrative* Kimberley De Los Santos Mammo Tech - 09/27/2022 1:10 PM EST [...] IV DATA: Not applicable SIGNED BY: Kimberley De Los Santos [employer] Jared September 27, 2022 1:05 PM Electronically signed by Kimberley [place] [employer] at 09/27/2022 1:27 PM EST documented in this encounterMercy [facility] Hospital01-24-2023 History of Present illness Narrative* Cynthia Ramos [...] @ 2' ecc Glare Testing: Visual Function: lAlie Lynn states that the decline in vision [...] patient was offered a surgery/procedure at a [facility] facility. The surgeon/proceduralist and patient have discussed [...] management of this patient's care with the Resident/Fellow/[employer], if applicable. I also have reviewed and [...] management of this patient's care with the Resident/Fellow/Finisher [employer], if applicable. I also have reviewed and agree with the assessment and plan as stated above and agree with all of its relevant components. Cynthia Ramos MD September 25, 2022 3:18 PM documented in this encounterMercy Health West Hospital01-18-2023 NoteHNO ID: [id number] Author: Michelle Perez, OT/L Service: ? Author [...] Planned: 6 Planned Treatment Interventions: Therapeutic exercise (60286);Self-jail management (42939);Patient/Family/Caregiver Education;Functional training;Community / Work Reintegration PLAN FOR [...] on getting L cataract extracted) Patient Goals: "I need to know how to do things more independently, on my own and gladis things and using lighting" Intake Information: Direct Access Previous Treatment: (was seen by low vision referring sec reporting consultant, Dr. Mason recently. 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) Recreation / Current Exercise: family, watching son LSN Mobile cars, volunteering, adventism Home Environment Patient Lives With: (alone but [...] to pay bills onl (more content not included)...[facility]01-18-2023 History of Present illness Narrative* Michelle [...] Planned: 6 Planned Treatment Interventions: Therapeutic exercise (66447);Self-jail management (53482);Patient/Family/Caregiver Education;Functional training;Community / Work Reintegration PLAN FOR [...] on getting L cataract extracted) Patient Goals: "I need to know how to do things more independently, on my own and gladis things and using lighting" Intake Information: Direct Access Previous Treatment: (was seen by low vision referring sec reporting consultant, Dr. Mason recently. 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 Presently she reads infrequently using VIDEO MAGNIFIER, AND CELL PHONE to assist. The patient reports having difficulty WITH READING MENUS WHEN OUT IN PUBLIC, READING OVERHEAD SIGNS, ETC. WHEN OUT IN COMMUNITY AND HAS TO RELY ON OTHERS. SHE LISTENS TO AUDIO BOOKS ON HER PHONE ("HARJINDER") READING: This patient: Never reads only the [...] REVEALS: Recalling report from referring low vision sec reporting consultant's report: RIGHT EYE: 20/250 DISTANCE AND NEAR 6.3M LEFT EYE: CF @2', and near 1.6M Both Near: 1.6M. Patient is waiting for LEFT eye cataract extraction and currently is not able to wear corrective glasses. Patient id. Losing her prescription sunglasses and only has wrap around dark saunders filters. Pt. Is applying for financial resources for recommended optical aids/devices from her local "[employer]" in [facility] but needs prices from two providers and was provided contact information from"[employer]" to assist with devices that referring low vision sec reporting consultant (Dr. Mason) provided to her at time of her assessment. PSYCHOSOCIAL ASSESSMENT: Alert & Oriented X 4. Affect: appropriate, reasonably positive mood , and hyper verbal/tangential. Memory: no gross deficits observed. Concentration: WFL. Language: verbal and reading w/ appropriate use of adaptive equipment. Fund of Knowledge: High Patient Reports her: Motivation is High. Activity level is High. Kaufman for ADL is: Average. Life satisfaction is: [...] Education/Teach Back: States/Identifies;Return Demonstration TREATMENT: Evaluation Evaluation Self-Penitentiary Management: 1: GROOMING: she was able to [...] needed. 6: COMMUNITY SUPPORT/RESOURCES: provided her with [facility] resources for support ([employer] AND [employer]) and she is already set up with [...] 75 Michelle Perez OT/L documented in this encounterMercy [facility] Hospital01-18-2023 Miscellaneous Notes* Telephone Encounter - Barbie Alicea Pss - 09/19/2022 9:50 AM EST Per Ilsa at Occupational Therapy she does not help with white tsai/mobile training. She states shesent you a message. She states she will call patient and explain this to her and see if she still wants to come in for her appointment today. documented in this encounterMercy Health West Hospital12-15-2022 History of Present illness Narrative* Wolf Mason, [...] as needed LV exam documented in this encounterMercy Health West Hospital12-13-2022 Miscellaneous Notes* Telephone Encounter - Starla Mckeon [...] can reorder this. Thank you David Anna APRN.CIVIL ENGINEER [employer]ELOP[employer] * Telephone Encounter - Lea Roberts Pss [...] advise. Lea Roberts Pss documented in this encounterMercy Health West Hospital11-22-2022 History of Present illness Narrative* Jonathon Eugene [...] components. Jonathon Eugene MD documented in this encounterMercy Health West Hospital11-22-2022 Miscellaneous Notes* Telephone Encounter - Aleksandra Min LPN - 07/24/2022 11:21 AM EST Patient notified. Verbalized understanding. * Telephone Encounter - Ifeoma Davis MD - 07/23/2022 6:53 PM EST I sent this to Ifeoma Hinson MD * Telephone Encounter - Melly Prado [facility] - 07/23/2022 12:10 PM EST Allie Lynn is calling Ifeoma Davis MD today she [...] calling: self Call patient at: at home [phone] (home) [phone] (cell) Was an appointment scheduled: No Closing statement: Results or non-symptom based questions: Thank you for [facility], your call will be returned within the next business day. Melly Prado Pss documented in this encounterMercy Health West Hospital11-21-2022 Miscellaneous Notes* Telephone Encounter - Celeste Cardona [employer]ARE WEIGHER - 07/23/2022 3:00 PM EST Patient has [...] LPN * Telephone Encounter - Melly Prado [facility] - 07/23/2022 12:02 PM EST Patient [...] No need to notify patient. Melly Prado [facility] documented in this encounterMercy Health West Hospital11-21-2022 Miscellaneous Notes* Telephone Encounter - Vanessa Cooley RN - 07/23/2022 12:41 PM EST Patient last seen for annual exam on 12/04/21. Vanessa Cooley RN * Telephone Encounter - Melly Prado [facility] - 07/23/2022 12:16 PM EST Patient has been identified by name and date of : Yes Requested Prescriptions Pending Prescriptions Disp Refills conjugated estrogens-medroxyPROGESTERone (PREMPRO) 0.45-1.5 mg per tablet 84 tablet 2 Sig: Take 1 tablet by mouth once daily. RX INSTRUCTIONS: Patient aware RX escripted to mail away pharmacy. No need to notify patient. Melly Prado [facility] documented in this encounterMercy Health West Hospital11-03-2022 Miscellaneous Notes* Telephone Encounter - Dara Valdez RN - 07/05/2022 8:41 AM EDT Called patient and notified that provider sent medication to [facility]. Patient voiced understanding. Dara Valdez RN * Telephone Encounter - Clint Brennan RN - 07/04/2022 4:11 PM EDT Patient asking pcp to send Rx to [facility]. See message below. * Telephone Encounter - [...] advise, Dara Valdez RN documented in this encounterMercy Health West Hospital11-01-2022 Instructions* Patient Instructions* Jonathon Eugene MD - 07/03/2022 1:14 PM EDT -prednisolone (white or pink cap) four times a day x 1 week, then three times a day for 1 week, then twice a day for 1 week, then once a day for 1 week, then stop -vigamox (mora cap) four times a day for 1 week, then stop documented in this encounterMercy Health West Hospital11-01-2022 History of Present illness Narrative* Jonathon Eugene [...] components. Jonathon Eugene MD documented in this encounterMercy Health West Hospital10-28-2022 History of Present illness Narrative* Valentine Torres, [...] 29, 2022 12:01 PM documented in this encounterMercy Health West Hospital10-28-2022 Miscellaneous Notes* Telephone Encounter - Tori Morales [...] Please review and advise. documented in this encounterMercy Health West Hospital10-28-2022 Miscellaneous Notes* Telephone Encounter - Janet Rivero RN - 06/29/2022 8:59 AM EDT Patient has been scheduled for today 06/29/2022 at the [place] office with Dr. Torres. Janet Rivero RN June 29, 2022 8:59 AM * Telephone Encounter - Janet Rivero RN - 06/29/2022 7:35 AM EDT Received message via Secure Chat from Dr. Eugene that due to patient living in [place] that she could see Dr. Torres for a dilated exam as well. If patient wants seen by Dr. Eugene he is at [facility]. Janet Rivero RN June 29, 2022 7:36 AM * Telephone Encounter - Janet Rivero RN - 06/28/2022 6:07 PM EDT Discussed patient with Dr. Eugene. He advised for patient to be seen on 06/29/[address] Ramos. Routed to [facility] staff to schedule. Janet Rivero RN June [...] can do to help. documented in this encounterMercy Health West Hospital10-25-2022 Instructions* Patient Instructions* Jonathon Eugene MD - 06/26/2022 1:40 PM EDT -prednisolone every two hours right eye -vigamox four times a day right eye -geldrops left eye -ointment at bedtime left eye documented in this encounterMercy Health West Hospital10-25-2022 History of Present illness Narrative* Jonathon Eugene [...] components. Jonathon Eugene MD documented in this encounterMercy Health West Hospital10-24-2022 History of Past illness Narrative* Problem Noted Date Resolved Date Combined 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 06/25/2022 06/25/2022 Photopsia 06/25/2022 06/25/2022 documented as of this encounter (statuses as of 06/25/2022) [facility] of [facility] illness Narrative* Problem Noted Date Resolved Date Combined 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 06/25/2022 06/25/2022 Photopsia 06/25/2022 06/25/2022 documented as of this encounter (statuses as of 06/26/2022) [facility] of [facility] illness Narrative* Problem Noted Date Resolved Date Combined 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 06/25/2022 06/25/2022 Photopsia 06/25/2022 06/25/2022 documented as of this encounter (statuses as of 06/26/2022) [facility] Narrative* Problem Noted Date Resolved Date Combined 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 06/25/2022 06/25/2022 Photopsia 06/25/2022 06/25/2022 documented as of this encounter (statuses as of 06/29/2022) [facility] Narrative* Problem Noted Date Resolved Date Combined 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 06/25/2022 06/25/2022 Photopsia 06/25/2022 06/25/2022 documented as of this encounter (statuses as of 06/29/2022) [facility] Narrative* Problem Noted Date Resolved Date Combined 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 06/25/2022 06/25/2022 Photopsia 06/25/2022 06/25/2022 documented as of this encounter (statuses as of 06/29/2022) [facility] Narrative* Problem Noted Date Resolved Date Combined 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 06/25/2022 06/25/2022 Photopsia 06/25/2022 06/25/2022 documented as of this encounter (statuses as of 07/03/2022) [facility] Narrative* Problem Noted Date Resolved Date Combined 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 06/25/2022 06/25/2022 Photopsia 06/25/2022 06/25/2022 documented as of this encounter (statuses as of 07/05/2022) [facility] Narrative* Problem Noted Date Resolved Date Combined 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 06/25/2022 06/25/2022 Photopsia 06/25/2022 06/25/2022 documented as of this encounter (statuses as of 07/23/2022) [facility] Narrative* Problem Noted Date Resolved Date Combined 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 06/25/2022 06/25/2022 Photopsia 06/25/2022 06/25/2022 documented as of this encounter (statuses as of 07/24/2022) [facility] Narrative* Problem Noted Date Resolved Date Combined 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 06/25/2022 06/25/2022 Photopsia 06/25/2022 06/25/2022 documented as of this encounter (statuses as of 07/24/2022) [facility] Narrative* Problem Noted Date Resolved Date Combined 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 06/25/2022 06/25/2022 Photopsia 06/25/2022 06/25/2022 documented as of this encounter (statuses as of 07/25/2022) [facility] Narrative* Problem Noted Date Resolved Date Combined 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 06/25/2022 06/25/2022 Photopsia 06/25/2022 06/25/2022 documented as of this encounter (statuses as of 08/14/2022) [facility] Narrative* Problem Noted Date Resolved Date Combined 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 06/25/2022 06/25/2022 Photopsia 06/25/2022 06/25/2022 documented as of this encounter (statuses as of 08/16/2022) [facility] Narrative* Problem Noted Date Resolved Date Combined 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 06/25/2022 06/25/2022 Photopsia 06/25/2022 06/25/2022 documented as of this encounter (statuses as of 09/20/2022) [facility] Narrative* Problem Noted Date Resolved Date Combined 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 06/25/2022 06/25/2022 Photopsia 06/25/2022 06/25/2022 documented as of this encounter (statuses as of 09/26/2022) [facility] Narrative* Problem Noted Date Resolved Date Combined 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 06/25/2022 06/25/2022 Photopsia 06/25/2022 06/25/2022 documented as of this encounter (statuses as of 09/27/2022) [address]24-2022 History of Past illness Narrative* Problem Noted Date Resolved Date Combined 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 06/25/2022 06/25/2022 Photopsia 06/25/2022 06/25/2022 documented as of this encounter (statuses as of 09/28/2022) [facility] Narrative* Problem Noted Date Resolved Date Combined 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 06/25/2022 06/25/2022 Photopsia 06/25/2022 06/25/2022 documented as of this encounter (statuses as of 10/01/2022) [facility] Narrative* Problem Noted Date Resolved Date Combined 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 06/25/2022 06/25/2022 Photopsia 06/25/2022 06/25/2022 documented as of this encounter (statuses as of 10/02/2022) [facility] Narrative* Problem Noted Date Resolved Date Combined 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 06/25/2022 06/25/2022 Photopsia 06/25/2022 06/25/2022 documented as of this encounter (statuses as of 10/02/2022) [facility] Narrative* Problem Noted Date Resolved Date Combined 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 06/25/2022 06/25/2022 Photopsia 06/25/2022 06/25/2022 documented as of this encounter (statuses as of 10/04/2022) [facility] Narrative* Problem Noted Date Resolved Date Combined 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 06/25/2022 06/25/2022 Photopsia 06/25/2022 06/25/2022 documented as of this encounter (statuses as of 10/09/2022) [facility] Narrative* Problem Noted Date Resolved Date Combined 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 06/25/2022 06/25/2022 Photopsia 06/25/2022 06/25/2022 documented as of this encounter (statuses as of 10/11/2022) [facility] Narr[facility]* Problem Noted Date Resolved Date Combined 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 06/25/2022 06/25/2022 Photopsia 06/25/2022 06/25/2022 documented as of this encounter (statuses as of 10/17/2022) [facility] Narr[facility]* Problem Noted Date Resolved Date Combined 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 06/25/2022 06/25/2022 Photopsia 06/25/2022 06/25/2022 documented as of this encounter (statuses as of 10/17/2022) [facility] Narr[facility]* Problem Noted Date Resolved Date Combined 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 06/25/2022 06/25/2022 Photopsia 06/25/2022 06/25/2022 documented as of this encounter (statuses as of 10/25/2022) [facility] Narrative* Problem Noted Date Resolved Date Combined 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 06/25/2022 06/25/2022 Photopsia 06/25/2022 06/25/2022 documented as of this encounter (statuses as of 10/26/2022) [facility] Narrative* Problem Noted Date Resolved Date Combined 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 06/25/2022 06/25/2022 Photopsia 06/25/2022 06/25/2022 documented as of this encounter (statuses as of 10/29/2022) [facility] Narrative* Problem Noted Date Resolved Date Combined 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 06/25/2022 06/25/2022 Photopsia 06/25/2022 06/25/2022 documented as of this encounter (statuses as of 10/31/2022) [facility] Narrative* Problem Noted Date Resolved Date Combined 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 06/25/2022 06/25/2022 Photopsia 06/25/2022 06/25/2022 documented as of this encounter (statuses as of 11/02/2022) [facility] Narrative* Problem Noted Date Resolved Date Combined 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 06/25/2022 06/25/2022 Photopsia 06/25/2022 06/25/2022 documented as of this encounter (statuses as of 11/05/2022) [facility] Narrative* Problem Noted Date Resolved Date Combined 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 06/25/2022 06/25/2022 Photopsia 06/25/2022 06/25/2022 documented as of this encounter (statuses as of 11/13/2022) [facility] Narrative* Problem Noted Date Diagnosed Date Resolved Date Combined forms of age-relate d cataract of right eye 06/25/2022 06/25/2022 Photopsia 06/25/2022 06/25/2022 Combined forms of age-relate d cataract, left eye 04/03/2022 12/29/2022 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, right, indeterminate stage 10/26/2021 0 12/29/2022 documented as of this encounter (statuses as of 07/06/2023) [facility] Narrative* Problem Noted Date Diagnosed Date Resolved Date Combined forms of age-relate d cataract of right eye 06/25/2022 06/25/2022 Photopsia 06/25/2022 06/25/2022 Combined forms of age-relate d cataract, left eye 04/03/2022 12/29/2022 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, right, indeterminate stage 10/26/2021 0 12/29/2022 documented as of this encounter (statuses as of 07/06/2023) [facility] Narrative* Problem Noted Date Diagnosed Date Resolved Date Combined forms of age-relate d cataract of right eye 06/25/2022 06/25/2022 Photopsia 06/25/2022 06/25/2022 Combined forms of age-relate d cataract, left eye 04/03/2022 12/29/2022 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, right, indeterminate stage 10/26/2021 0 12/29/2022 documented as of this encounter (statuses as of 07/06/2023) [facility] Narrative* Problem Noted Date Diagnosed Date Resolved Date Combined forms of age-relate d cataract of right eye 06/25/2022 06/25/2022 Photopsia 06/25/2022 06/25/2022 Combined forms of age-relate d cataract, left eye 04/03/2022 12/29/2022 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 Author Type: Registered Nurse Type: Nursing Progress Note Filed: 06/25/2022 9:59 AM Note Text: Spoke with Mallika SUPERVISOR [employer]OURING P[employer] that patient has questions for Dr. Eugene prior to procedure.[id number] [facility] Discharge instructions* Discharge Instr - Other [...] 38.3 C Trouble breathing Contact Jonathon Eugene [phone] and leave voicemail -emergency numbers: [phone] or ext [phone] and ask for the eye doctor program evaluation consultant. documented in this encounterMercy [facility]10-24-2022 History and physical note * Jonathon Eugene [...] 2022 TIME: 10:02 AM documented in this [facility]10-24-2022 Nurse Note* Allie Cardoso RN - 06/25/2022 9:58 AM EDT Spoke with Mallika SUPERVIS[employer] that patient has questions for Dr. Eugene prior to procedure. documented in this [facility]10-24-2022 Surgical operation note* Operative Report - Jonathon Eugene MD - 06/25/2022 9:58 AM EDT OPERATIVE/PROCEDURE REPORT OPHTHAMOLOGY LOG ID: [id number] SURGERY/PROCEDURE DATE: 06/25/2022 INCISION/PROCEDURE START TIME: 10:13 AM INCISION CLOSE/PROCEDURE END TIME: 11:27 AM SURGEON(S)/PROCEDURALIST(S) AND CHOIR LEADER(S): Surgeon(s) and Role: * Jonathon Eugene MD [...] Implant Name Type Inv. Item Serial No. Floral Arranger Lot No. [id number] No. Used Action Model No. LENS ACRYSOF ULTRASERT +14.5 DIOPTER ACRYLIC IOL 1 PIECE FOLDABLE UV BLUE - [id number] Intraocular Lens LENS ACRYSOF ULTRASERT +14.5 DIOPTER ACRYLIC IOL 1 PIECE FOLDABLE UV BLUE [id number] [employer] Right 1 Implanted [id number] Ocular Co-Morbidities: Yes Intra-operative Complications None I/primary surgeon/proceduralist performed the entire procedure. SIGNATURE: Jonathon Eugene MD PATIENT NAME: Allie Lynn DATE: June 25, 2022 TIME: 11:31 AM PAGER/CONTACT #: [phone] documented in this encounterMercy [facility] Hospital10-21-2022 Miscellaneous Notes* Telephone Encounter - Janet Rivero RN - 06/22/2022 10:58 AM EDT Pended pre-operative drop prescriptions to Dr. Eugene for approval. Janet Rivero RN June 22, 2022 10:59 AM documented in this encounterMercy Health [facility] Hospital10-21-2022 Miscellaneous Notes* Telephone Encounter - Meche Salvador - 06/22/2022 9:24 AM EDT Patient's pharmacy has no record of receiving the pre surgical prescriptions. Her surgery is 06-25-22, so she needs to start the drops tomorrow. [facility] [place] [place] documented in this encounterMercy Health [facility] Hospital10-19-2022 History of Present illness Narrative* Charlene Grossman MD - 06/20/2022 5:16 PM EDT Images from the original note were not included. Charlene Grossman MD Interventional Cardiology [address] [place] [id number] Chief Complaint Patient presents with: CARD [...] (RIGHT EYE) Right 10/26/2021 S [place] [id number] FAMILY HISTORY Problem Relation Age of Onset Heart Father Age 61 Heart Maternal Grandfather Cancer Paternal Grandmother Breast Cancer Maternal Aunt 55 ovarian cancer Heart Son [place] Ovarian cancer Maternal Grandmother Glaucoma No Family [...] 125/70 Pulse 88 Resp 18 Ht 5' 0" (1.52m) Wt 155 lb (70.3kg) SpO2 98% [...] to correct any errors. documented in this encounterMer[facility]-19-2022 Nurse Note* Alana Jiang MA - 06/20/2022 12:46 PM EDT Patient c/o bradycardia, palpitations, SOB, chest tenderness documented in this encounterMercy [facility] Hospital10-19-2022 Miscellaneous Notes* Telephone Encounter - Mauricio Bahena - 06/20/2022 9:32 AM EDT Attempted to contact patient to inform to arrive at [address] [place] [address] at 09:05 am for 06/25/22 surgery with Jonathon Eugene MD, to refrain from eating or drinking for 8 hours prior to arrival for surgery, and to begin the eyedrops in the right eye on 06/23/22. Left message on machine to callwith any questions or concerns. documented in this encounterMercy Health [facility] Hospital09-09-2022 Miscellaneous Notes* Telephone Encounter - Celeste Cardona [...] pharmacy. No need to notify patient. [facility]ra [facility] documented in this encounterMercy Health West Hospital09-09-2022 Miscellaneous Notes* Telephone Encounter - Anshul Oliver Ma - 05/11/2022 10:29 AM EDT NOMI: 12/25/2021 Last refill: 09/18/2021 QTY: 60 Refills: 2 * Telephone Encounter - Myra [facility] - 05/11/2022 10:19 AM EDT Patient is requesting medication, Gabapentin 100 mg take one daily at bedtime. She will need these for her upcoming eye procedure. This medication is not on the medication list. Please send to her local pharmacy [facility]. Any questions , please call patient [phone] Electronically signed by [facility] at 05/11/2022 10:26 AM EDT documented in this encounterMercy Health West Hospital09-01-2022 History of Present illness Narrative* Viviana Powell Ma - 05/03/2022 4:34 PM EDT EMG/NCV order faxed to [facility] scheduling. Referral done in computer. * Massimo Roberts MD - 05/03/2022 1:30 PM EDT Massimo Roberts MD Department of Orthopaedics Orthopaedics [address] [facility] [address] Dept: [phone] Dept May 03, 2022 CHIEF COMPLAINT: New [...] (RIGHT EYE) Right 10/26/2021 S [place] [id number] Family History: FAMILY HISTORY Problem Relation Age of Onset Heart Father Age 61 Heart Maternal Grandfather Cancer Paternal Grandmother Breast Cancer Maternal Aunt 55 ovarian cancer Heart Son [place] Ovarian cancer Maternal Grandmother Glaucoma No Family [...] electronic medical record. Massimo Roberts [address] [facility] [address] Ifeoma Davis MD [address] [facility] [address] Massimo Roberts MD documented in this encounterMercy Health West Hospital08-24-2022 Miscellaneous Notes* Telephone Encounter - Zainab Leyva - 04/25/2022 10:42 AM EDT INTRAOCULAR LENS ORDER ATTN: MERI / CHAYO GUAJARDO [facility] PATIENTS NAME: Allie Lynn SURGERY DATE: 06/25/2022 EYE: OD SURGEON: Jonathon Eugene MD LENS: [employer] EQUITY MANAGER: Leonardo MODEL: [id number] POWER: + 14.5 ADDITIONAL NOTES: documented in this encounterMercy Health West Hospital08-11-2022 History of Present illness Narrative* Jonathon Eugene [...] components. Jonathon Eugene MD documented in this encounterMercy Health West Hospital08-02-2022 Instructions* Patient Instructions* Jonathon Eugene MD - 04/03/2022 12:34 PM EDT Images from the original note were not included. documented in this encounterMercy Health West Hospital08-02-2022 History of Present illness Narrative* Jonathon Eugene [...] components. Jonathon Eugene MD documented in this encounterMercy Health West Hospital07-26-2022 History of Present illness Narrative* Cynthia Ramos [...] (H52.7) Refractive error Comment: Myopia, patient has sec reporting consultant Plan: Wait on new specs for now RTC 3 months VaTa or sooner if needed post-op I have confirmed and edited as necessary the relevant ophthalmic history, ROS, and the neuro exam findings as obtained by others. I have seen and examined this patient. I have discussed the case and the management of this patient's care with the Resident/Fellow/Finisher [employer], if applicable. I also have reviewed and agree with the assessment and plan as stated above and agree with all of its relevant components. Cynthia Ramos MD April 03, 2022 5:22 PM documented in this encounterMercy Health West Hospital07-13-2022 History of Present illness Narrative* Jonathon Eugene [...] components. Jonathon Eugene MD documented in this encounterMercy Health [facility] Hospital07-01-2022 Miscellaneous Notes* Telephone Encounter - Janet Rivero [...] Dr. Eugene. Please advise. documented in this encounterMercy Health West Hospital06-28-2022 History of Present illness Narrative* Jonathon Eugene [...] components. Jonathon Eugene MD documented in this encounterCleveland [id number] Miscellaneous Notes* Telephone Encounter - Aleksandra Min LPN - 02/10/2022 11:58 AM EDT Patient notified on mychart. * Telephone Encounter - Alise Dejesus APRN.CNP - 02/10/2022 11:20 AM EDT No growth for urine culture. If symptoms persist then follow up with PCP Please notify thank you documented in this encounterMercy Health West Hospital06-10-2022 Miscellaneous Notes* Telephone Encounter - Mary Goodwin Pss - 02/09/2022 10:05 AM EDT Pharmacy verified in [facility] Patient has been identified by name and [...] advise. Mary Goodwin Pss documented in this encounterMercy Health West Hospital06-09-2022 Miscellaneous Notes* Telephone Encounter - Janet Rivero RN - 02/08/2022 11:30 AM EDT Received call from patient. Reviewed the options available for [employer]. Patient states due to being on disability she is unable to pay out of pocket for the medication. Asks that I inform Dr. Eugene that she wishes to discuss "lid surgery" further. Thanked us for looking into the [...] is not covered by most insurance companies. [employer] offers pricing of over $200.00 for all Pharmacies. [employer] does NOT cover it. The license clerk of [employer] recommends using an on-line Pharmacy, [facility]. They DO NOT submit to [...] that she can use? documented in this encounterMercy Health West Hospital05-13-2022 Miscellaneous Notes* Telephone Encounter - Mary Tamez RN - 01/12/2022 10:46 AM EDT Patient last seen for annual exam on 12/04/21. Needs a new RX for Prempro. Out of refills. RX pending. Pending Prescriptions Disp Refills CONJ ESTROGEN-MEDROXYPROGESTERONE 0.45 MG-1.5 MG TABLET 84 tablet 2 Sig: Take 1 tablet by mouth once daily. WALTER: No Mary Tamez RN documented in this encounterMercy Health West Hospital04-25-2022 History of Present illness Narrative* Ifeoma Davis [...] (RIGHT EYE) Right 10/26/2021 S [place] [id number] FAMILY HISTORY Problem Relation Age of Onset Heart Father Age 61 Heart Maternal Grandfather Cancer Paternal Grandmother Breast Cancer Maternal Aunt 55 ovarian cancer Heart Son [place] Ovarian cancer Maternal Grandmother Glaucoma No Family [...] IVCON Ifeoma Davis MD documented in this encounterMercy Health West Hospital04-19-2022 History of Present illness Narrative* Cynthia Ramos [...] in both eyes as often as needed (H40.4268) Primary open angle glaucoma (POAG) of both [...] (H52.7) Refractive error Comment: Myopia, patient has sec reporting consultant; happy with new glasses Plan: f/u as [...] management of this patient's care with the Resident/Fellow/Finisher [employer], if applicable. I also have reviewed and agree with the assessment and plan as stated above and agree with all of its relevant components. Cynthia Ramos MD December 19, 2021 2:17 PM documented in this encounterMercy Health West Hospital04-11-2022 Miscellaneous Notes* Telephone Encounter - Dara Valdez [...] patient * Telephone Encounter - David Anna APRN.CIVIL ENGINEER [employer]AND [employer]ELOPMENT - 12/07/2021 4:00 PM EDT Patient will [...] order due to vertigo. documented in this encounterMercy Health West Hospital04-04-2022 History of Present illness Narrative* Destiney Mckeon [...] L3 SAB0 IAB0 Ectopic0 Multiple0 Live Births0 Manager Industrial History LMP: Ablation Age at Menarche: Age at First : Age at Menopause: Manager Industrial History Comments: Sexual Activity: Not Asked; Male [...] (RIGHT EYE) Right 10/26/2021 S [place] [address] FAMILY HISTORY Problem Relation Age of Onset Heart Father Age 61 Heart Maternal Grandfather Cancer Paternal Grandmother Breast Cancer Maternal Aunt 55 ovarian cancer Heart Son [place] Ovarian cancer Maternal Grandmother Glaucoma No Family [...] external genitalia normal, normal Bartholin's glands, urethra, [place]'s glands, no vulvar lesions, no cervical lesions, [...] needed Destiney Mckeon APRN.DEBORAH documented in this encounterMercy Health West Hospital03-29-2022 History of Present illness Narrative* Cynthia Ramos [...] (H52.7) Refractive error Comment: Myopia, patient has sec reporting consultant Plan: f/u as planned RTC f/u as [...] as needed No rubbing eyes Update Mrx (H40.1134) Primary open angle glaucoma (POAG) of [...] management of this patient's care with the Resident/Fellow/Finisher [employer], if applicable. I also have reviewed and agree with the assessment and plan as stated above and agree with all of its relevant components. 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 documented [facility] encounter [facility]* Diagnosis 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 Vertigo Dizziness and giddiness Memory deficits Memory loss New daily persistent headache Chronic mixed headache syndrome Other headache syndromes [facility] Diagnosis 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 injury Post-traumatic headache, unspecified [facility]* Diagnosis Photopsia- Primary Other visual distortions and entoptic phenomena Primary open angle glaucoma (POAG) of both eyes, indeterminate stage Combined form of age-related cataract, 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 Marginal corneal ulcer [facility]* Diagnosis Photopsia- Primary Other visual distortions and entoptic phenomena Primary open angle glaucoma (POAG) of both eyes, indeterminate stage Combined form of age-related cataract, 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 Marginal corneal ulcer 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 [facility]* Diagnosis Medication management Encounter for long-term (current) use of other medications [facility]* Diagnosis Photopsia- Primary Other visual distortions and entoptic phenomena Combined forms of age-related cataract of both eyes Other and combined forms of senile cataract Primary open angle glaucoma (POAG) of both eyes, indeterminate stage Combined form of age-related cataract, both eyes [facility]* Diagnosis Primary open angle glaucoma [...] of senile cataract [facility]* Diagnosis Pain in both hands- Primary Trigger middle finger of left hand Trigger finger (acquired) Trigger ring finger of right hand Trigger finger (acquired) Combined 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 Other and combined forms of senile cataract Photopsia Other visual distortions and entoptic phenomena [facility]* Diagnosis 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 Obesity, Class I, BMI 30-34.9 Obesity, unspecified Combined 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 Other and combined forms of senile cataract Photopsia Other visual distortions and entoptic phenomena [facility]* Diagnosis Combined 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 Other and combined forms of senile cataract Photopsia Other visual distortions and entoptic phenomena [facility]* Diagnosis Pseudophakia- Primary Lens replaced by other means [facility] Acute cough- Primary [facility]* Diagnosis Photopsia- Primary Other visual distortions and entoptic phenomena Pseudophakia, right eye Lens replaced by other means Combined forms of age-related cataract, left eye Primary open angle glaucoma (POAG) of both eyes, indeterminate stage 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 [facility]* Diagnosis Pseudophakia, right eye- Primary Lens replaced by other means [facility]* Diagnosis Pseudophakia, right eye- Primary Lens replaced by other means [facility]* Diagnosis Functional dyspepsia Dyspepsia and other specified disorders of function of stomach Nausea Nausea alone [facility]* Diagnosis 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 injury Post-traumatic headache, unspecified [facility]* Diagnosis Blindness right eye category [...] reading disorder, unspecified [facility]* Diagnosis Annual physical exam- Primary Routine general medical examination at a health care facility [facility]* Diagnosis Abnormal mammogram- Primary Abnormal mammogram, unspecified [facility]* Diagnosis Pain in both hands- Primary [facility]* Diagnosis Trigger ring finger of [...] eye, severe stage [facility]* Diagnosis Difficulty with household tasks- [...] eye, severe stage [facility]* Diagnosis Trigger ring finger of [...] eye, severe stage [facility]* Diagnosis Follow-up exam- Primary Unspecified follow-up examination [facility]* Diagnosis Trigger ring finger of right hand- Primary Trigger finger (acquired) Trigger middle finger of left hand Trigger finger (acquired) [facility]* Diagnosis Follow-up exam- Primary Unspecified follow-up examination documented [facility] encounter [facility]* Diagnosis Follow-up exam- Primary Unspecified follow-up examination Vitreous prolapse of left eye Vitreous prolapse documented in this encounter [facility]Evalud[facility] noteNo assessment information availableWClermont County Hospital Work Phone: Evaluation note* Diagnosis Secondary glaucoma, indeterminate stage, 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 Pseudophakia of both eyes Lens replaced by other means [facility]* Diagnosis Gastroesophageal reflux disease, unspecified whether esophagitis present- Primary Change in bowel habits Other symptoms involving digestive system [facility]* Diagnosis Legally blind- Primary Legal blindness, as defined in [place] documented in this encounter [facility]* Diagnosis Numbness and tingling in right hand- Primary Disturbance of skin sensation [facility]* Diagnosis Trigger finger, unspecified finger, unspecified laterality [facility]* Diagnosis Abnormal mammogram Abnormal mammogram, unspecified [facility]* Diagnosis Pain in both hands [facility]* Diagnosis Abnormal mammogram Abnormal mammogram, unspecified [facility]* Diagnosis Encounter for screening mammogram for breast cancer documented [facility]* Diagnosis Secondary glaucoma, indeterminate stage, 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 [facility]* Diagnosis Encounter for screening mammogram for breast cancer [facility]* Diagnosis Trigger finger, unspecified finger, unspecified laterality documented in this encounter [facility]* Diagnosis Bacterial sinusitis- Primary Unspecified sinusitis (chronic) documented [facility]* Diagnosis Onset Date Resolution Status Injury of right rotator cuff acute [facility] Work Phone: Evaluation note* Diagnosis Encounter for gynecological examination (general) (routine) without abnormal findings- Primary Encounter for screening for human papillomavirus (HPV) Special screening examination for human papillomavirus (HPV) Pap smear for cervical cancer screening Screening for malignant neoplasm of the cervix Encounter for screening mammogram for breast cancer documented in this encounter [facility]* Diagnosis 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 injury Post-traumatic headache, unspecified documented [facility]* Diagnosis Secondary glaucoma, indeterminate stage, 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 Pseudophakia of both eyes Lens replaced by other means Legally blind Legal blindness, as defined in [place] documented in this encounter [facility]* Diagnosis Hypertension Unspecified essential hypertension Mixed hyperlipidemia Medication management Encounter for long-term (current) use of other medications documented [facility] encounter [facility]* Diagnosis Annual wellness visit- Primary Headaches [...] [place] Mixed hyperlipidemia documented in [facility] encounter [facility]* Diagnosis Allergic contact dermatitis due to plants, except food- Primary Contact dermatitis and other eczema due to plants (except food) documented [facility] encounter [facility]* Diagnosis Establishing care with new [...] unspecified documented in this encounter [facility]* Diagnosis Establishing care with new [...] Legally blind Legal blindness, as defined in [facility] Fibromyalgia Mylagia and myositis, unspecified Primary insomnia Persistent disorder of initiating or maintaining sleep Vitamin D deficiency Unspecified vitamin D deficiency Gastroesophageal reflux disease, unspecified whether esophagitis present Change in bowel habits Other symptoms involving digestive system documented in this encounter [facility]* Diagnosis Legally blind- Primary Legal blindness, as defined in [place] 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 Trigger finger, unspecified finger, unspecified laterality Mixed hyperlipidemia Primary hypertension Unspecified essential hypertension Swelling of both hands Gastroesophageal reflux disease with esophagitis, unspecified whether hemorrhage documented [facility] this encounter [facility]* Diagnosis Establishing care with new [...] Other screening mammogram documented in [facility] encounter [facility]* Diagnosis Establishing care with new [...] anomaly of skin [facility]* Diagnosis Establishing care with new [...] unspecified whether hemorrhage documented [facility] encounter [facility]* Diagnosis Establishing care with new [...] COVID-19 virus- Primary documented in this encounter [facility]* Diagnosis Establishing care with new [...] apnea (adult) (pediatric) documented in this encounter [facility]* Diagnosis Establishing care with new [...] anomaly of skin [facility]* Diagnosis Establishing care with new [...] to menopause- Primary documented in this encounter [facility]* Diagnosis Establishing care with new [...] Other sleep disturbances documented in [facility] encounter [facility]* Diagnosis Establishing care with new [...] Insomnia, unspecified type documented in this encounter [facility]* Diagnosis Establishing care with new [...] unspecified depression type documented in this encounter [facility]* Diagnosis Establishing care with new [...] streaks of choroid [facility] Diagnosis Establishing care with new [...] streaks of choroid documented in this encounter [facility]* Diagnosis Establishing care with new [...] cancer documented in this encounter [facility]* Diagnosis Establishing care with new [...] anomaly of skin documented in [facility] encounter [facility]* Diagnosis Establishing care with new [...] site not specified documented in this encounter [facility]* Diagnosis Establishing care with new [...] unspecified Other fatigue documented in this encounter [facility]* Diagnosis Establishing care with new [...] apnea (adult) (pediatric) documented in [facility] encounter [facility]* Diagnosis Establishing care with new [...] Hypokalemia- Primary Hypopotassemia documented [facility] this encounter [facility]* Diagnosis Establishing care with new [...] unspecified type- Primary documented in this encounter [facility]* Diagnosis Establishing care with new [...] apnea (adult) (pediatric) documented [facility]* Diagnosis Establishing care with new [...] deficiency Mixed hyperlipidemia documented in [facility] encounter [facility]* Diagnosis Establishing care with new [...] Legally blind Legal blindness, as defined in [facility] Sleep apnea, unspecified type documented in this encounter [facility]* Diagnosis Establishing care with new [...] Unspecified essential hypertension documented in this encounter [facility] note* Diagnosis Establishing care with new [...] of left eye documented in this encounter [facility] note* Diagnosis Establishing care with new [...] unspecified single disease documented in this encounter [facility] note* Diagnosis Establishing care with new [...] unspecified single disease [facility] Diagnosis Establishing care with new [...] deficiency Mixed hyperlipidemia [facility] in [facility] Diagnosis Establishing care with new [...] Other specified complications documented in this encounter [facility] note* Diagnosis Establishing care with new [...] 126/82 11/18/2023 124/72 [facility] Establishing care with new doctor, [...] glaucoma surgery- Primary [facility] Establishing care with new doctor, [...] Insomnia, unspecified type documented in this encounter [facility] note* Diagnosis Establishing care with new [...] following other surgery documented in this encounter [facility] note* Diagnosis Establishing care with new [...] of unspecified site [facility] Establishing care with new doctor, [...] plants (except food) [facility] Diagnosis Establishing care with new doctor, [...] indeterminate stage, bilateral [facility] Establishing care with new doctor, [...] specified erythematous condition [facility] Diagnostic Procedure Only (Routine) - Pending Review Specialty Diagnoses / Procedures Referred By Shiraz johnson Referred To Contact [facility] Diagnoses Encounter for screening mammogram for breast cancer Procedures GENOVEVA SCREENING SCREENING MAMMOGRAPHY BI 2-VIEW BREAST INC Destiney Proctor, MURTAZA.CIVIL ENGINEER [employer]AND DEVELOPMENT [address] [place] [address] [facility] [address] [place] [address] Referral ID Status Reason Start Date Expiration Date Visits Requested Visits Authorized [id number] Pending Review Auto-Generat ed Referral 12/04/2021 01/03/2023 1 1 [facility] for referral (narrative)* Outpatient Procedure (Routine) - Pending Review Specialty Diagnoses / Procedures Referred By Contac t Referred To Contact [facility] Diagnoses Pain in both hands Procedures EMG(NEURO/NI) NERVE CONDUCTION STUDIES 9-10 STUDIES Massimo Roberts MD [address] [place] [address] [facility] [place] [address] [place] [address] Referral ID Status Reason Start Date Expiration Date Visits Requested Visits Authorized [id number] Pending Review Auto-Generat ed Referral 05/03/2022 05/03/2023 1 1 [facility] for referral (narrative)* Outpatient Procedure (Routine) - Pending Review Specialty Diagnoses / Procedures Referred By Contac t Referred To Contact [facility] Diagnoses PXE (pseudoxanthoma elasticum) Procedures ECHO ECHO TTHRC R-T 2D W/WOM-MODE COMPL SPEC&COLR D Charlene Grossman MD [address] [place] [address] [facility] [place] [address] Referral ID Status Reason Start Date Expiration Date Visits Requested Visits Authorized [id number] Pending Review Auto-Generat ed Referral 2 06/20/2023 1 1 [facility] for referral (narrative)* Diagnostic Procedure Only (Routine) - Pending Review Specialty Diagnoses / Procedures Referred By Contac t Referred To Contact [facility] Diagnoses Abnormal mammogram Procedures GENOVEVA DIAGNOSTIC RT DIAGNOSTIC MAMMOGRAPHY COMPUTER-AIDED DETCJ Destiney Cortez APRN.CNP [address] [place] [address] [facility] Imaging [address] [place] [address] Referral ID Status Reason Start Date Expiration Date Visits Requested Visits Authorized [id number] Pending Review Auto-Generat ed Referral 09/28/2022 10/28/2023 1 1 * Diagnostic Procedure Only (Routine) - Pending Review Specialty Diagnoses / Procedures Referred By Contac t Referred To Contact [facility] Diagnoses Abnormal mammogram Procedures US BREAST LTD RT US BREAST UNI REAL TIME WITH IMAGE LIMITED Destiney Mckeon APRN.CNP [address] [place] [address] [facility] Imaging [address] [place] [address] Referral ID Status Reason Start Date Expiration Date Visits Requested Visits Authorized [id number] Pending Review Auto-Generat ed Referral 09/28/2022 10/28/2023 1 1 [facility] for referral (narrative)* Diagnostic Procedure Only (Routine) - Closed Specialty Diagnoses / Procedures Referred By Shiraz t Referred To Contact XR IMAGING Diagnoses Pain in both hands Procedures XR HAND GENERAL 3V PA/LAT/OBL BILATERAL RADEX HAND MINIMUM 3 VIEWS Massimo Roberts MD [address] [place] [address] Xr Imaging Referral ID Status Reason Start Date Expiration Date V isits Requested Visits Authorized [id number] Closed Auto-Generate d Referral 10/01/2022 10/31/2023 1 1 [facility] for referral (narrative)* Outpatient Procedure (Routine) - Authorized Specialty Diagnoses / Procedures Referred By Yunierac t Referred To Contact [facility] Diagnoses Change in bowel habits Procedures COLONOSCOPY DIAGNOSTIC COLONOSCOPY FLX DX W/COLLJ SPEC WHEN PFRMD Cande Pozo, JAZZMINE [address] [place] [address] [address] Referral ID Status Reason Start Date Expiration Date Visits Requested Visits Authorized [id number] Authorized Auto-Generat ed Referral 04/30/2023 04/30/2024 1 1 * Outpatient Procedure (Routine) - Authorized Specialty Diagnoses / Procedures Referred By Contac t Referred To Contact [facility] Diagnoses Gastroesophageal reflux disease, unspecified whether esophagitis present Procedures EGD DIAGNOSTIC ESOPHAGOGASTRODUODENOSC OPY TRANSORAL DIAGNOSTIC Cande Pozo PA-C [address] [place] [address] [place] [id number] Referral ID Status Reason Start Date Expiration Date Visits Requested Visits Authorized [id number] Authorized Auto-Generat ed Referral 04/30/2023 04/30/2024 1 1 [facility] for referral (narrative)* Outpatient Procedure (Routine) - Pending Review Specialty Diagnoses / Procedures Referred By Yunierac t Referred To Contact [facility] Diagnoses Numbness and tingling in right hand Procedures EMG(NEURO/NI) NERVE CONDUCTION STUDIES 9-10 STUDIES Massimo Roberts MD [address] [place] [address] [place] [address] Referral ID Status Reason Start Date Expiration Date Visits Requested Visits Authorized [id number] Pending Review Auto-Generat ed Referral 04/25/2023 04/25/2024 1 1 [facility] for referral (narrative)* Diagnostic Procedure Only (Routine) - Closed Specialty Diagnoses / Procedures Referred By Shiraz t Referred To Contact [facility] Diagnoses Abnormal mammogram Procedures US BREAST LTD RT US BREAST UNI REAL TIME WITH IMAGE LIMITED Destiney Mckeon APRN.CIVIL ENGINEER [employer]AND DEVELOPMENT [address] [place] [address] Br Imaging [address] [place] [address] Referral ID Status Reason Start Date Expiration Date V isits Requested Visits Authorized [id number] Closed Auto-Generate d Referral 09/28/2022 10/28/2023 1 1 [facility] for referral (narrative)* Diagnostic Procedure Only (Routine) - Closed Specialty Diagnoses / Procedures Referred By Contac t Referred To Contact XR IMAGING Diagnoses Pain in both hands Procedures XR HAND GENERAL 3V PA/LAT/OBL BILATERAL RADEX HAND MINIMUM 3 VIEWS Massimo Roberts MD [address] [facility] [place] [address] [place] [address] Referral ID Status Reason Start Date Expiration Date V isits Requested Visits Authorized [id number] Closed Auto-Generate d Referral 10/01/2022 10/31/2023 1 1 [facility] for referral (narrative)* Diagnostic Procedure Only (Routine) - Closed Specialty Diagnoses / Procedures Referred By Contac t Referred To Contact [facility] Diagnoses Encounter for screening mammogram for breast cancer Procedures GENOVEVA SCREENING SCREENING MAMMOGRAPHY BI 2-VIEW BREAST INC Destiney Proctor APRN.CNP [address] [place] [address] Br Imaging [address] [place] [address] Referral ID Status Reason Start Date Expiration Date V isits Requested Visits Authorized [id number] Closed Auto-Generate d Referral 09/05/2022 09/01/2023 1 1 [facility] for referral (narrative)* Diagnostic Procedure Only (Routine) - Pending Review Specialty Diagnoses / Procedures Referred By Contac t Referred To Contact [facility] Diagnoses Encounter for gynecological examination (general) (routine) without abnormal findings Encounter for screening mammogram for breast cancer Procedures GENOVEVA SCREENING SCREENING MAMMOGRAPHY BI 2-VIEW BREAST INC CAD Destiney Mckeon APRN.CNP [address] [place] [address] [facility] Imaging [address] [place] [address] Referral ID Status Reason Start Date Expiration Date Visits Requested Visits Authorized [id number] Pending Review Auto-Generat ed Referral 12/24/2023 01/22/2025 1 1 [facility] for referral (narrative)* Outpatient Procedure (Routine) - Closed Specialty Diagnoses / Procedures Referred By Contac t Referred To Contact [facility] Diagnoses Change in bowel habits Procedures COLONOSCOPY DIAGNOSTIC COLONOSCOPY FLX DX W/COLLJ SPEC WHEN PFRMD Cande Pozo PA-C [address] [place] [address] [facility] [place] [address] [place] [address] Referral ID Status Reason Start Date Expiration Date V isits Requested Visits Authorized [id number] Closed Auto-Generate d Referral 04/30/2023 04/30/2024 1 1 * Outpatient Procedure (Routine) - Closed Specialty Diagnoses / Procedures Referred By Shiraz johnson Referred To Contact [facility] Diagnoses Gastroesophageal reflux disease, unspecified whether esophagitis present Procedures EGD DIAGNOSTIC ESOPHAGOGASTRODUODENOSC OPY TRANSORAL DIAGNOSTIC Cande Pozo PA-C [address] [place] [address] [facility] [address] [place] [address] Referral ID Status Reason Start Date Expiration Date V isits Requested Visits Authorized [id number] Closed Auto-Generate d Referral 04/30/2023 04/30/2024 1 1 [facility] for referral (narrative)* Diagnostic Procedure Only (Routine) - Authorized Specialty Diagnoses / Procedures Referred By Shiraz johnson Referred To Contact [facility] Diagnoses Encounter for screening mammogram for malignant neoplasm of breast Procedures GENOVEVA SCREENING W LILLY SCREENING DIGITAL BREAST TOMOSYNTHESIS BI SCREENING MAMMOGRAPHY BI 2-VIEW BREAST INC CAD Ifeoma Davis MD [address] [place] [address] [facility] [address] [place] [address] Referral ID Status Reason Start Date Expiration Date Visits Requested Visits Authorized [id number] Authorized Auto-Generat ed Referral 07/12/2025 1 1 [facility] for referral (narrative)* Outpatient Procedure (Routine) - Closed Specialty Diagnoses / Procedures Referred By Shiraz johnson Referred To Contact [facility] Diagnoses PXE (pseudoxanthoma elasticum) Procedures US CAROTID ARTERIES MARYAN [facility] LAB DUPLEX SCAN EXTRACRANIAL ART COMPL BI STUDY Ifeoma Davis MD [address] [place] [address] [facility] [place] [address] [place] [address] Referral ID Status Reason Start Date Expiration Date V isits Requested Visits Authorized [id number] Closed Auto-Generate d Referral 05/14/2024 05/14/2025 1 1 [facility] for referral (narrative)No reason for referral information availableWClermont [facility] Work Phone: Reason for visit Narrative* Diagnostic Procedure Only (Routine) - Closed Specialty Diagnoses / Procedures Referred By Shiraz johnson Referred To Contact XR IMAGING Diagnoses Pain Procedures XR HAND GENERAL 3V PA/LAT/OBL BILATERAL RADEX HAND MINIMUM 3 VIEWS Massimo Roberts MD [address] [place] [address] [place] [address] Referral ID Status Reason Start Date Expiration Date V isits Requested Visits Authorized [id number] Closed Auto-Generate d Referral 04/20/2022 09/01/2023 1 1 [facility] for visit Narrative* Diagnostic Procedure Only (Routine) - Closed Specialty Diagnoses / Procedures Referred By Contac t Referred To Contact [facility] Diagnoses Abnormal mammogram Procedures GENOVEVA DIAGNOSTIC RT DIAGNOSTIC MAMMOGRAPHY COMPUTER-AIDED DETCJ UNI Edmond Destiney, STATION DETECTIVE.CIVIL ENGINEER LAND DEVELOPMENT [address] [facility] [place] [address] Br Imaging [address] [place] [address] Referral ID Status Reason Start Date Expiration Date V isits Requested Visits Authorized [id number] Closed Auto-Generate d Referral 09/28/2022 10/28/2023 1 1 [facility] for visit Narrative* Diagnostic Procedure Only (Routine) - Closed Specialty Diagnoses / Procedures Referred By Contac t Referred To Contact [facility] Diagnoses Encounter for screening mammogram for breast cancer Procedures GENOVEVA SCREENING SCREENING MAMMOGRAPHY BI 2-VIEW BREAST INC CAD [facility], STATION DETECTIVE.CIVIL ENGINEER LAND DEVELOPMENT [address] [place] [address] Br Imaging [address] [place] [address] Referral ID Status Reason Start Date Expiration Date V isits Requested Visits Authorized [id number] Closed Auto-Generate d Referral 12/10/2022 01/09/2024 1 1 [facility] for visit Narrative* Outpatient Procedure (Routine) - Closed Specialty Diagnoses / Procedures Referred By Contac t Referred To Contact [facility] Diagnoses Change in bowel habits Procedures COLONOSCOPY DIAGNOSTIC COLONOSCOPY FLX DX W/COLLJ SPEC WHEN PFRMD Cande Pozo PA-C [address] [place] [address] [facility] [place] [address] [place] [address] Referral ID Status Reason Start Date Expiration Date V isits Requested Visits Authorized [id number] Closed Auto-Generate d Referral 04/30/2023 04/30/2024 1 1 [facility] for visit Narrative* Diagnostic Procedure Only (Routine) - Closed Specialty Diagnoses / Procedures Referred By Contac t Referred To Contact [facility] Diagnoses Encounter for gynecological examination (general) (routine) without abnormal findings Encounter for screening mammogram for breast cancer Procedures GENOVEVA SCREENING SCREENING MAMMOGRAPHY BI 2-VIEW BREAST INC Destiney Proctor APRN.CIVIL ENGINEER [employer]AND DEVELOPMENT [address] [place] [address] Phone: tel: fax: [facility] [address] [place] [address] Referral ID Status Reason Start Date Expiration Date V isits Requested Visits Authorized [id number] Closed Auto-Generate d Referral 12/24/2023 01/22/2025 1 1 [facility] Advance Directives No Advanced Directives Records FoundDocuments on File Type Date Recorded Patient Materials Assistant Expl anation Advance Directive(s) 10/26/2021 12:12 PM Advance Directive(s) 09/14/2021 11:54 AM Advance Directive(s) 06/22/2019 12:39 PM Advance Directive(s) 02/03/2018 1:55 PM Advance Directive(s) 01/30/2018 9:51 AM Documents on File Type Date Recorded Patient Materials Assistant Expl anation Advance Directive(s) 10/26/2021 12:12 PM Advance Directive(s) 09/14/2021 11:54 AM Advance Directive(s) 06/22/2019 12:39 PM Advance Directive(s) 02/03/2018 1:55 PM Advance Directive(s) 01/30/2018 9:51 AM Advance Directive Response Recorded Date/ Time Advance Directives Yes August 3:53pm Living Will Yes November 20, 2021 5:09pm Power of Thread Grinder Yes November 20 5:09pm Advance Directive Response Recorded Date/ Time Advance Directives Yes November 24 025 3:06pm Advance Directive Response Recorded Date/ Time Do you have a Healthcare Power of Thread Grinder? Yes May 27, 2025 6:56pm Advance Directives Yes November 24 025 3:06pm Advance Directive Response Recorded Date/ Time Do you have a Healthcare Power of Thread Grinder? Yes May 27, 2025 6:56pm Do you have a Healthcare Power of Thread Grinder? Yes June 17, 2025 6:25pm Name of Medical Power of Thread Grinder Melvin Nassar June 17, 2025 6:25pm Do you have a Healthcare Power of Thread Grinder? No June 23, 2025 5:47pm Do you have a Healthcare Power of Thread Grinder? 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) Vertigo Memory deficits New daily persistent headache Procedures MRI BRAIN WO/W IVCON MRI BRAIN BRAIN STEM W/O W/CONTRAST MATERIAL Ifeoma Davis MD [address] [place] [address] [facility] Referral ID Status Reason Start Date Expiration Date Visits Requested Visits Authorized [id number] Authorized Auto-Generat ed Referral 12/25/2021 01/24/2023 1 1 Specialty Diagnoses / Procedures Referred By Shiraz t Referred To Contact [facility] Diagnoses Blindness right eye category 3, blindness left eye category 4 Procedures CONSULT TO DIRT SHOVELER OCCUPATIONAL THERAPY EVAL HIGH COMPLEX 60 MINS Wolf Mason, OD [address] [facility] [address] [place] [address] [facility] [address] [address] Referral ID Status Reason Start Date Expiration Date Visits Requested Visits Authorized [id number] Pending Review Auto-Generat ed Referral 2 08/16/2023 1 1 Specialty Diagnoses / Procedures Referred By Shiraz t Referred To Contact [facility] Diagnoses Difficulty with household tasks Impaired mobility and personal care Personal care impairment Complaints of difficulty with reading Blindness right eye category 3, blindness left eye category 4 Procedures OT REHAB FOLLOW UP ORDER THERAPEUT ACTVITY DIRECT PT CONTACT EACH 15 MIN Ot [address] [address] [facility] [address] [address] Referral ID Status Reason Start Date Expiration Date Visits Requested Visits Authorized [id number] Pending Review PCP Requested Referral Auto-Generate d Referral 09/19/2022 12/18/2022 1 1 Specialty Diagnoses / Procedures Referred By Shiraz t Referred To Contact Gastroenterology Diagnoses Gastroesophageal reflux disease with esophagitis, unspecified whether hemorrhage Procedures CONSULT TO GASTROENTEROLOGY OFFICE/OUTPATIENT [facility] MDM 60-74 MINUTES Ifeoma Davis MD [address] [place] [address] Referral ID Status Reason Start Date Expiration Date Visits Requested Visits Authorized [id number] Pending Review PCP Requested Referral 10/16/2022 10/16/2023 1 1 Specialty Diagnoses / Procedures Referred By Contac t Referred To Contact [facility] Diagnoses Gastroesophageal reflux disease with esophagitis, unspecified whether hemorrhage Procedures ECG COMPLETE ECG ROUTINE ECG W/LEAST 12 LDS W/I&R Ifeoma Davis MD [address] [place] [address] [facility] [place] [address] [place] [address] Referral ID Status Reason Start Date Expiration Date Visits Requested Visits Authorized [id number] Pending Review Auto-Generat ed Referral 10/16/2022 10/16/2023 1 1 Specialty Diagnoses / Procedures Referred By Contac t Referred To Contact [facility] Diagnoses Trigger ring finger of right hand Trigger middle finger of left hand Procedures CONSULT TO DIRT SHOVELER OCCUPATIONAL THERAPY EVAL HIGH COMPLEX 60 MINS Taina Fan PA-C [address] [place] [address] [facility] [address] [address] Referral ID Status Reason Start Date Expiration Date Visits Requested Visits Authorized [id number] Pending Review Auto-Generat ed Referral 11/19/2022 11/19/2023 1 1 Specialty Diagnoses / Procedures Referred By Contac t Referred To Contact Destiney Mckeon, STATION DETECTIVE.CIVIL ENGINEER LAND DEVELOPMENT [address] [place] [address] Referral ID Status Reason Start Date Expiration Date Visits Re quested Visits Authorized [id number] Closed 1 1 Specialty Diagnoses / Procedures Referred By Contac t Referred To Contact Diagnoses 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 60 MINUTES Ifeoma Davis MD [address] [place] [address] Referral ID Status Reason Start Date Expiration Date Visits Requested Visits Authorized [id number] Authorized PCP Requested Referral 07/28/2025 1 1 Specialty Diagnoses / Procedures Referred By Shiraz johnson Referred To Contact Diagnoses Vasomotor symptoms due to menopause Destiney Mckeon APRN.CIVIL ENGINEER LAND DEVELOPMENT [address] [place] [address] Referral ID Status Reason Start Date Expiration Date V isits Requested Visits Authorized [id number] Authorized 06/16/2024 09/15/2025 1 1 Medications Administered [...] Given 06/25/2022 11:25 AM EDT 0.1 mL pjcketce-wwezqabgd-jfuvpxphu sone 3.5 mg/g-10,000 unit/g-0.1 % (POLYDEX) X [...] of left hip O ctober 2024 10:59am Chief Complaint Admit Date LEFT HIP March [...] Room 3 June 04, 2025 11 :43am PREOP June 17, 2025 2 :01pm headachwe June 17, 2025 5 :54pm LEFT HIP TEMPLATING June 21, 2025 1 2:59pm headache June 23, 2025 5 :25pm weakness June 29, 2025 2 :43am Additional Source Comments Source Comments (unrecognize d section and content) In the event this informatio n is protected by the Federal Confidentiality of Alcohol and Drug Abuse Patient Records regulations: The Federal rules restrict any use of the information to criminally investigate or prosecute any alcohol or drug abuse patient.[facility] the event this information is protected by the Federal Confidentiality of Alcohol and Drug Abuse Patient Records regulations: The Federal rules restrict any use of the information to criminally investigate or prosecute any alcohol or drug abuse patient.[facility] Hospital[facility] the event this information is protected by the Federal Confidentiality of Alcohol and Drug Abuse Patient Records regulations: The Federal rules restrict any use of the information to criminally investigate or prosecute any alcohol or drug abuse patient.[facility] Hospital[facility] the event this information is protected by the Federal Confidentiality of Alcohol and Drug Abuse Patient Records regulations: The Federal rules restrict any use of the information to criminally investigate or prosecute any alcohol or drug abuse patient.[facility] Hospital[facility] the event this information is protected by the Federal Confidentiality of Alcohol and Drug Abuse Patient Records regulations: The Federal rules restrict any use of the information to criminally investigate or prosecute any alcohol or drug abuse patient.[facility] Hospital[facility] the event this information is protected by the Federal Confidentiality of Alcohol and Drug Abuse Patient Records regulations: The Federal rules restrict any use of the information to criminally investigate or prosecute any alcohol or drug abuse patient.[facility] Hospital[facility] the event this information is protected by the Federal Confidentiality of Alcohol and Drug Abuse Patient Records regulations: The Federal rules restrict any use of the information to criminally investigate or prosecute any alcohol or drug abuse patient.[facility] Hospital[facility] the event this information is protected by the Federal Confidentiality of Alcohol and Drug Abuse Patient Records regulations: The Federal rules restrict any use of the information to criminally investigate or prosecute any alcohol or drug abuse patient.[facility] HospitalIn the event this information is protected by the Federal Confidentiality of Alcohol and Drug Abuse Patient Records regulations: The Federal rules restrict any use of the information to criminally investigate or prosecute any alcohol or drug abuse patient.[facility] HospitalIn the event this information is protected by the Federal Confidentiality of Alcohol and Drug Abuse Patient Records regulations: The Federal rules restrict any use of the information to criminally investigate or prosecute any alcohol or drug abuse patient.[facility] HospitalIn the event this information is protected by the Federal Confidentiality of Alcohol and Drug Abuse Patient Records regulations: The Federal rules restrict any use of the information to criminally investigate or prosecute any alcohol or drug abuse patient.[facility] HospitalIn the event this information is protected by the Federal Confidentiality of Alcohol and Drug Abuse Patient Records regulations: The Federal rules restrict any use of the information to criminally investigate or prosecute any alcohol or drug abuse patient.[facility] HospitalIn the event this information is protected by the Federal Confidentiality of Alcohol and Drug Abuse Patient Records regulations: The Federal rules restrict any use of the information to criminally investigate or prosecute any alcohol or drug abuse patient.[facility] HospitalIn the event this information is protected by the Federal Confidentiality of Alcohol and Drug Abuse Patient Records regulations: The Federal rules restrict any use of the information to criminally investigate or prosecute any alcohol or drug abuse patient.[facility] HospitalIn the event this information is protected by the Federal Confidentiality of Alcohol and Drug Abuse Patient Records regulations: The Federal rules restrict any use of the information to criminally investigate or prosecute any alcohol or drug abuse patient.[facility] HospitalIn the event this information is protected by the Federal Confidentiality of Alcohol and Drug Abuse Patient Records regulations: The Federal rules restrict any use of the information to criminally investigate or prosecute any alcohol or drug abuse patient.[facility] HospitalIn the event this information is protected by the Federal Confidentiality of Alcohol and Drug Abuse Patient Records regulations: The Federal rules restrict any use of the information to criminally investigate or prosecute any alcohol or drug abuse patient.[facility] HospitalIn the event this information is protected by the Federal Confidentiality of Alcohol and Drug Abuse Patient Records regulations: The Federal rules restrict any use of the information to criminally investigate or prosecute any alcohol or drug abuse patient.[facility] HospitalIn the event this information is protected by the Federal Confidentiality of Alcohol and Drug Abuse Patient Records regulations: The Federal rules restrict any use of the information to criminally investigate or prosecute any alcohol or drug abuse patient.[facility] HospitalIn the event this information is protected by the Federal Confidentiality of Alcohol and Drug Abuse Patient Records regulations: The Federal rules restrict any use of the information to criminally investigate or prosecute any alcohol or drug abuse patient.[facility] HospitalIn the event this information is protected by the Federal Confidentiality of Alcohol and Drug Abuse Patient Records regulations: The Federal rules restrict any use of the information to criminally investigate or prosecute any alcohol or drug abuse patient.[facility] HospitalIn the event this information is protected by the Federal Confidentiality of Alcohol and Drug Abuse Patient Records regulations: The Federal rules restrict any use of the information to criminally investigate or prosecute any alcohol or drug abuse patient.[facility] HospitalIn the event this information is protected by the Federal Confidentiality of Alcohol and Drug Abuse Patient Records regulations: The Federal rules restrict any use of the information to criminally investigate or prosecute any alcohol or drug abuse patient.[facility] HospitalIn the event this information is protected by the Federal Confidentiality of Alcohol and Drug Abuse Patient Records regulations: The Federal rules restrict any use of the information to criminally investigate or prosecute any alcohol or drug abuse patient.[facility] HospitalIn the event this information is protected by the Federal Confidentiality of Alcohol and Drug Abuse Patient Records regulations: The Federal rules restrict any use of the information to criminally investigate or prosecute any alcohol or drug abuse patient.[facility] HospitalIn the event this information is protected by the Federal Confidentiality of Alcohol and Drug Abuse Patient Records regulations: The Federal rules restrict any use of the information to criminally investigate or prosecute any alcohol or drug abuse patient.[facility] HospitalIn the event this information is protected by the Federal Confidentiality of Alcohol and Drug Abuse Patient Records regulations: The Federal rules restrict any use of the information to criminally investigate or prosecute any alcohol or drug abuse patient.[facility] HospitalIn the event this information is protected by the Federal Confidentiality of Alcohol and Drug Abuse Patient Records regulations: The Federal rules restrict any use of the information to criminally investigate or prosecute any alcohol or drug abuse patient.[facility] HospitalIn the event this information is protected by the Federal Confidentiality of Alcohol and Drug Abuse Patient Records regulations: The Federal rules restrict any use of the information to criminally investigate or prosecute any alcohol or drug abuse patient.[facility] HospitalIn the event this information is protected by the Federal Confidentiality of Alcohol and Drug Abuse Patient Records regulations: The Federal rules restrict any use of the information to criminally investigate or prosecute any alcohol or drug abuse patient.[facility] HospitalIn the event this information is protected by the Federal Confidentiality of Alcohol and Drug Abuse Patient Records regulations: The Federal rules restrict any use of the information to criminally investigate or prosecute any alcohol or drug abuse patient.[facility] HospitalIn the event this information is protected by the Federal Confidentiality of Alcohol and Drug Abuse Patient Records regulations: The Federal rules restrict any use of the information to criminally investigate or prosecute any alcohol or drug abuse patient.[facility] HospitalIn the event this information is protected by the Federal Confidentiality of Alcohol and Drug Abuse Patient Records regulations: The Federal rules restrict any use of the information to criminally investigate or prosecute any alcohol or drug abuse patient.[facility] HospitalIn the event this information is protected by the Federal Confidentiality of Alcohol and Drug Abuse Patient Records regulations: The Federal rules restrict any use of the information to criminally investigate or prosecute any alcohol or drug abuse patient.[facility] HospitalIn the event this information is protected by the Federal Confidentiality of Alcohol and Drug Abuse Patient Records regulations: The Federal rules restrict any use of the information to criminally investigate or prosecute any alcohol or drug abuse patient.[facility] HospitalIn the event this information is protected by the Federal Confidentiality of Alcohol and Drug Abuse Patient Records regulations: The Federal rules restrict any use of the information to criminally investigate or prosecute any alcohol or drug abuse patient.[facility] HospitalIn the event this information is protected by the Federal Confidentiality of Alcohol and Drug Abuse Patient Records regulations: The Federal rules restrict any use of the information to criminally investigate or prosecute any alcohol or drug abuse patient.[facility] HospitalIn the event this information is protected by the Federal Confidentiality of Alcohol and Drug Abuse Patient Records regulations: The Federal rules restrict any use of the information to criminally investigate or prosecute any alcohol or drug abuse patient.[facility] HospitalIn the event this information is protected by the Federal Confidentiality of Alcohol and Drug Abuse Patient Records regulations: The Federal rules restrict any use of the information to criminally investigate or prosecute any alcohol or drug abuse patient.[facility] HospitalIn the event this information is protected by the Federal Confidentiality of Alcohol and Drug Abuse Patient Records regulations: The Federal rules restrict any use of the information to criminally investigate or prosecute any alcohol or drug abuse patient.[facility] HospitalIn the event this information is protected by the Federal Confidentiality of Alcohol and Drug Abuse Patient Records regulations: The Federal rules restrict any use of the information to criminally investigate or prosecute any alcohol or drug abuse patient.[facility] HospitalIn the event this information is protected by the Federal Confidentiality of Alcohol and Drug Abuse Patient Records regulations: The Federal rules restrict any use of the information to criminally investigate or prosecute any alcohol or drug abuse patient.[facility] HospitalIn the event this information is protected by the Federal Confidentiality of Alcohol and Drug Abuse Patient Records regulations: The Federal rules restrict any use of the information to criminally investigate or prosecute any alcohol or drug abuse patient.[facility] HospitalIn the event this information is protected by the Federal Confidentiality of Alcohol and Drug Abuse Patient Records regulations: The Federal rules restrict any use of the information to criminally investigate or prosecute any alcohol or drug abuse patient.[facility] HospitalIn the event this information is protected by the Federal Confidentiality of Alcohol and Drug Abuse Patient Records regulations: The Federal rules restrict any use of the information to criminally investigate or prosecute any alcohol or drug abuse patient.[facility] HospitalIn the event this information is protected by the Federal Confidentiality of Alcohol and Drug Abuse Patient Records regulations: The Federal rules restrict any use of the information to criminally investigate or prosecute any alcohol or drug abuse patient.[facility] HospitalIn the event this information is protected by the Federal Confidentiality of Alcohol and Drug Abuse Patient Records regulations: The Federal rules restrict any use of the information to criminally investigate or prosecute any alcohol or drug abuse patient.[facility] HospitalIn the event this information is protected by the Federal Confidentiality of Alcohol and Drug Abuse Patient Records regulations: The Federal rules restrict any use of the information to criminally investigate or prosecute any alcohol or drug abuse patient.[facility] HospitalIn the event this information is protected by the Federal Confidentiality of Alcohol and Drug Abuse Patient Records regulations: The Federal rules restrict any use of the information to criminally investigate or prosecute any alcohol or drug abuse patient.[facility] HospitalIn the event this information is protected by the Federal Confidentiality of Alcohol and Drug Abuse Patient Records regulations: The Federal rules restrict any use of the information to criminally investigate or prosecute any alcohol or drug abuse patient.[facility] HospitalIn the event this information is protected by the Federal Confidentiality of Alcohol and Drug Abuse Patient Records regulations: The Federal rules restrict any use of the information to criminally investigate or prosecute any alcohol or drug abuse patient.[facility] HospitalIn the event this information is protected by the Federal Confidentiality of Alcohol and Drug Abuse Patient Records regulations: The Federal rules restrict any use of the information to criminally investigate or prosecute any alcohol or drug abuse patient.[facility] HospitalIn the event this information is protected by the Federal Confidentiality of Alcohol and Drug Abuse Patient Records regulations: The Federal rules restrict any use of the information to criminally investigate or prosecute any alcohol or drug abuse patient.[facility] HospitalIn the event this information is protected by the Federal Confidentiality of Alcohol and Drug Abuse Patient Records regulations: The Federal rules restrict any use of the information to criminally investigate or prosecute any alcohol or drug abuse patient.[facility] HospitalIn the event this information is protected by the Federal Confidentiality of Alcohol and Drug Abuse Patient Records regulations: The Federal rules restrict any use of the information to criminally investigate or prosecute any alcohol or drug abuse patient.[facility] HospitalIn the event this information is protected by the Federal Confidentiality of Alcohol and Drug Abuse Patient Records regulations: The Federal rules restrict any use of the information to criminally investigate or prosecute any alcohol or drug abuse patient.[facility] HospitalIn the event this information is protected by the Federal Confidentiality of Alcohol and Drug Abuse Patient Records regulations: The Federal rules restrict any use of the information to criminally investigate or prosecute any alcohol or drug abuse patient.[facility] HospitalIn the event this information is protected by the Federal Confidentiality of Alcohol and Drug Abuse Patient Records regulations: The Federal rules restrict any use of the information to criminally investigate or prosecute any alcohol or drug abuse patient.[facility] HospitalIn the event this information is protected by the Federal Confidentiality of Alcohol and Drug Abuse Patient Records regulations: The Federal rules restrict any use of the information to criminally investigate or prosecute any alcohol or drug abuse patient.[facility] HospitalIn the event this information is protected by the Federal Confidentiality of Alcohol and Drug Abuse Patient Records regulations: The Federal rules restrict any use of the information to criminally investigate or prosecute any alcohol or drug abuse patient.[facility] HospitalIn the event this information is protected by the Federal Confidentiality of Alcohol and Drug Abuse Patient Records regulations: The Federal rules restrict any use of the information to criminally investigate or prosecute any alcohol or drug abuse patient.[facility] HospitalIn the event this information is protected by the Federal Confidentiality of Alcohol and Drug Abuse Patient Records regulations: The Federal rules restrict any use of the information to criminally investigate or prosecute any alcohol or drug abuse patient.[facility] HospitalIn the event this information is protected by the Federal Confidentiality of Alcohol and Drug Abuse Patient Records regulations: The Federal rules restrict any use of the information to criminally investigate or prosecute any alcohol or drug abuse patient.[facility] HospitalIn the event this information is protected by the Federal Confidentiality of Alcohol and Drug Abuse Patient Records regulations: The Federal rules restrict any use of the information to criminally investigate or prosecute any alcohol or drug abuse patient.[facility] HospitalIn the event this information is protected by the Federal Confidentiality of Alcohol and Drug Abuse Patient Records regulations: The Federal rules restrict any use of the information to criminally investigate or prosecute any alcohol or drug abuse patient.[facility] HospitalIn the event this information is protected by the Federal Confidentiality of Alcohol and Drug Abuse Patient Records regulations: The Federal rules restrict any use of the information to criminally investigate or prosecute any alcohol or drug abuse patient.[facility] HospitalIn the event this information is protected by the Federal Confidentiality of Alcohol and Drug Abuse Patient Records regulations: The Federal rules restrict any use of the information to criminally investigate or prosecute any alcohol or drug abuse patient.[facility] HospitalIn the event this information is protected by the Federal Confidentiality of Alcohol and Drug Abuse Patient Records regulations: The Federal rules restrict any use of the information to criminally investigate or prosecute any alcohol or drug abuse patient.[facility] HospitalIn the event this information is protected by the Federal Confidentiality of Alcohol and Drug Abuse Patient Records regulations: The Federal rules restrict any use of the information to criminally investigate or prosecute any alcohol or drug abuse patient.[facility] HospitalIn the event this information is protected by the Federal Confidentiality of Alcohol and Drug Abuse Patient Records regulations: The Federal rules restrict any use of the information to criminally investigate or prosecute any alcohol or drug abuse patient.[facility] HospitalIn the event this information is protected by the Federal Confidentiality of Alcohol and Drug Abuse Patient Records regulations: The Federal rules restrict any use of the information to criminally investigate or prosecute any alcohol or drug abuse patient.[facility] HospitalIn the event this information is protected by the Federal Confidentiality of Alcohol and Drug Abuse Patient Records regulations: The Federal rules restrict any use of the information to criminally investigate or prosecute any alcohol or drug abuse patient.[facility] HospitalIn the event this information is protected by the Federal Confidentiality of Alcohol and Drug Abuse Patient Records regulations: The Federal rules restrict any use of the information to criminally investigate or prosecute any alcohol or drug abuse patient.[facility] HospitalIn the event this information is protected by the Federal Confidentiality of Alcohol and Drug Abuse Patient Records regulations: The Federal rules restrict any use of the information to criminally investigate or prosecute any alcohol or drug abuse patient.[facility] HospitalIn the event this information is protected by the Federal Confidentiality of Alcohol and Drug Abuse Patient Records regulations: The Federal rules restrict any use of the information to criminally investigate or prosecute any alcohol or drug abuse patient.[facility] HospitalIn the event this information is protected by the Federal Confidentiality of Alcohol and Drug Abuse Patient Records regulations: The Federal rules restrict any use of the information to criminally investigate or prosecute any alcohol or drug abuse patient.[facility] HospitalIn the event this information is protected by the Federal Confidentiality of Alcohol and Drug Abuse Patient Records regulations: The Federal rules restrict any use of the information to criminally investigate or prosecute any alcohol or drug abuse patient.[facility] HospitalIn the event this information is protected by the Federal Confidentiality of Alcohol and Drug Abuse Patient Records regulations: The Federal rules restrict any use of the information to criminally investigate or prosecute any alcohol or drug abuse patient.[facility] HospitalIn the event this information is protected by the Federal Confidentiality of Alcohol and Drug Abuse Patient Records regulations: The Federal rules restrict any use of the information to criminally investigate or prosecute any alcohol or drug abuse patient.[facility] HospitalIn the event this information is protected by the Federal Confidentiality of Alcohol and Drug Abuse Patient Records regulations: The Federal rules restrict any use of the information to criminally investigate or prosecute any alcohol or drug abuse patient.[facility] HospitalIn the event this information is protected by the Federal Confidentiality of Alcohol and Drug Abuse Patient Records regulations: The Federal rules restrict any use of the information to criminally investigate or prosecute any alcohol or drug abuse patient.[facility] HospitalIn the event this information is protected by the Federal Confidentiality of Alcohol and Drug Abuse Patient Records regulations: The Federal rules restrict any use of the information to criminally investigate or prosecute any alcohol or drug abuse patient.[facility] HospitalIn the event this information is protected by the Federal Confidentiality of Alcohol and Drug Abuse Patient Records regulations: The Federal rules restrict any use of the information to criminally investigate or prosecute any alcohol or drug abuse patient.[facility] HospitalIn the event this information is protected by the Federal Confidentiality of Alcohol and Drug Abuse Patient Records regulations: The Federal rules restrict any use of the information to criminally investigate or prosecute any alcohol or drug abuse patient.[facility] HospitalIn the event this information is protected by the Federal Confidentiality of Alcohol and Drug Abuse Patient Records regulations: The Federal rules restrict any use of the information to criminally investigate or prosecute any alcohol or drug abuse patient.[facility] HospitalIn the event this information is protected by the Federal Confidentiality of Alcohol and Drug Abuse Patient Records regulations: The Federal rules restrict any use of the information to criminally investigate or prosecute any alcohol or drug abuse patient.[facility] HospitalIn the event this information is protected by the Federal Confidentiality of Alcohol and Drug Abuse Patient Records regulations: The Federal rules restrict any use of the information to criminally investigate or prosecute any alcohol or drug abuse patient.[facility] HospitalIn the event this information is protected by the Federal Confidentiality of Alcohol and Drug Abuse Patient Records regulations: The Federal rules restrict any use of the information to criminally investigate or prosecute any alcohol or drug abuse patient.[facility] HospitalIn the event this information is protected by the Federal Confidentiality of Alcohol and Drug Abuse Patient Records regulations: The Federal rules restrict any use of the information to criminally investigate or prosecute any alcohol or drug abuse patient.[facility] HospitalIn the event this information is protected by the Federal Confidentiality of Alcohol and Drug Abuse Patient Records regulations: The Federal rules restrict any use of the information to criminally investigate or prosecute any alcohol or drug abuse patient.[facility] HospitalIn the event this information is protected by the Federal Confidentiality of Alcohol and Drug Abuse Patient Records regulations: The Federal rules restrict any use of the information to criminally investigate or prosecute any alcohol or drug abuse patient.[facility] HospitalIn the event this information is protected by the Federal Confidentiality of Alcohol and Drug Abuse Patient Records regulations: The Federal rules restrict any use of the information to criminally investigate or prosecute any alcohol or drug abuse patient.[facility] HospitalIn the event this information is protected by the Federal Confidentiality of Alcohol and Drug Abuse Patient Records regulations: The Federal rules restrict any use of the information to criminally investigate or prosecute any alcohol or drug abuse patient.[facility] HospitalIn the event this information is protected by the Federal Confidentiality of Alcohol and Drug Abuse Patient Records regulations: The Federal rules restrict any use of the information to criminally investigate or prosecute any alcohol or drug abuse patient.[facility] HospitalIn the event this information is protected by the Federal Confidentiality of Alcohol and Drug Abuse Patient Records regulations: The Federal rules restrict any use of the information to criminally investigate or prosecute any alcohol or drug abuse patient.[facility] HospitalIn the event this information is protected by the Federal Confidentiality of Alcohol and Drug Abuse Patient Records regulations: The Federal rules restrict any use of the information to criminally investigate or prosecute any alcohol or drug abuse patient.[facility] HospitalIn the event this information is protected by the Federal Confidentiality of Alcohol and Drug Abuse Patient Records regulations: The Federal rules restrict any use of the information to criminally investigate or prosecute any alcohol or drug abuse patient.[facility] HospitalIn the event this information is protected by the Federal Confidentiality of Alcohol and Drug Abuse Patient Records regulations: The Federal rules restrict any use of the information to criminally investigate or prosecute any alcohol or drug abuse patient.[facility] HospitalIn the event this information is protected by the Federal Confidentiality of Alcohol and Drug Abuse Patient Records regulations: The Federal rules restrict any use of the information to criminally investigate or prosecute any alcohol or drug abuse patient.[facility] HospitalIn the event this information is protected by the Federal Confidentiality of Alcohol and Drug Abuse Patient Records regulations: The Federal rules restrict any use of the information to criminally investigate or prosecute any alcohol or drug abuse patient.[facility] HospitalIn the event this information is protected by the Federal Confidentiality of Alcohol and Drug Abuse Patient Records regulations: The Federal rules restrict any use of the information to criminally investigate or prosecute any alcohol or drug abuse patient.[facility] HospitalIn the event this information is protected by the Federal Confidentiality of Alcohol and Drug Abuse Patient Records regulations: The Federal rules restrict any use of the information to criminally investigate or prosecute any alcohol or drug abuse patient.[facility] HospitalIn the event this information is protected by the Federal Confidentiality of Alcohol and Drug Abuse Patient Records regulations: The Federal rules restrict any use of the information to criminally investigate or prosecute any alcohol or drug abuse patient.[facility] HospitalIn the event this information is protected by the Federal Confidentiality of Alcohol and Drug Abuse Patient Records regulations: The Federal rules restrict any use of the information to criminally investigate or prosecute any alcohol or drug abuse patient.[facility] HospitalIn the event this information is protected by the Federal Confidentiality of Alcohol and Drug Abuse Patient Records regulations: The Federal rules restrict any use of the information to criminally investigate or prosecute any alcohol or drug abuse patient.[facility] HospitalIn the event this information is protected by the Federal Confidentiality of Alcohol and Drug Abuse Patient Records regulations: The Federal rules restrict any use of the information to criminally investigate or prosecute any alcohol or drug abuse patient.[facility] HospitalIn the event this information is protected by the Federal Confidentiality of Alcohol and Drug Abuse Patient Records regulations: The Federal rules restrict any use of the information to criminally investigate or prosecute any alcohol or drug abuse patient.[facility] HospitalIn the event this information is protected by the Federal Confidentiality of Alcohol and Drug Abuse Patient Records regulations: The Federal rules restrict any use of the information to criminally investigate or prosecute any alcohol or drug abuse patient.[facility] HospitalIn the event this information is protected by the Federal Confidentiality of Alcohol and Drug Abuse Patient Records regulations: The Federal rules restrict any use of the information to criminally investigate or prosecute any alcohol or drug abuse patient.[facility] HospitalIn the event this information is protected by the Federal Confidentiality of Alcohol and Drug Abuse Patient Records regulations: The Federal rules restrict any use of the information to criminally investigate or prosecute any alcohol or drug abuse patient.[facility] HospitalIn the event this information is protected by the Federal Confidentiality of Alcohol and Drug Abuse Patient Records regulations: The Federal rules restrict any use of the information to criminally investigate or prosecute any alcohol or drug abuse patient.[facility] HospitalIn the event this information is protected by the Federal Confidentiality of Alcohol and Drug Abuse Patient Records regulations: The Federal rules restrict any use of the information to criminally investigate or prosecute any alcohol or drug abuse patient.[facility] HospitalIn the event this information is protected by the Federal Confidentiality of Alcohol and Drug Abuse Patient Records regulations: The Federal rules restrict any use of the information to criminally investigate or prosecute any alcohol or drug abuse patient.[facility] HospitalIn the event this information is protected by the Federal Confidentiality of Alcohol and Drug Abuse Patient Records regulations: The Federal rules restrict any use of the information to criminally investigate or prosecute any alcohol or drug abuse patient.[facility] HospitalIn the event this information is protected by the Federal Confidentiality of Alcohol and Drug Abuse Patient Records regulations: The Federal rules restrict any use of the information to criminally investigate or prosecute any alcohol or drug abuse patient.[facility] HospitalIn the event this information is protected by the Federal Confidentiality of Alcohol and Drug Abuse Patient Records regulations: The Federal rules restrict any use of the information to criminally investigate or prosecute any alcohol or drug abuse patient.[facility] HospitalIn the event this information is protected by the Federal Confidentiality of Alcohol and Drug Abuse Patient Records regulations: The Federal rules restrict any use of the information to criminally investigate or prosecute any alcohol or drug abuse patient.[facility] HospitalIn the event this information is protected by the Federal Confidentiality of Alcohol and Drug Abuse Patient Records regulations: The Federal rules restrict any use of the information to criminally investigate or prosecute any alcohol or drug abuse patient.[facility] HospitalIn the event this information is protected by the Federal Confidentiality of Alcohol and Drug Abuse Patient Records regulations: The Federal rules restrict any use of the information to criminally investigate or prosecute any alcohol or drug abuse patient.[facility] HospitalIn the event this information is protected by the Federal Confidentiality of Alcohol and Drug Abuse Patient Records regulations: The Federal rules restrict any use of the information to criminally investigate or prosecute any alcohol or drug abuse patient.[facility] HospitalIn the event this information is protected by the Federal Confidentiality of Alcohol and Drug Abuse Patient Records regulations: The Federal rules restrict any use of the information to criminally investigate or prosecute any alcohol or drug abuse patient.[facility] HospitalIn the event this information is protected by the Federal Confidentiality of Alcohol and Drug Abuse Patient Records regulations: The Federal rules restrict any use of the information to criminally investigate or prosecute any alcohol or drug abuse patient.[facility] HospitalIn the event this information is protected by the Federal Confidentiality of Alcohol and Drug Abuse Patient Records regulations: The Federal rules restrict any use of the information to criminally investigate or prosecute any alcohol or drug abuse patient.[facility] HospitalIn the event this information is protected by the Federal Confidentiality of Alcohol and Drug Abuse Patient Records regulations: The Federal rules restrict any use of the information to criminally investigate or prosecute any alcohol or drug abuse patient.[facility] HospitalIn the event this information is protected by the Federal Confidentiality of Alcohol and Drug Abuse Patient Records regulations: The Federal rules restrict any use of the information to criminally investigate or prosecute any alcohol or drug abuse patient.[facility] HospitalIn the event this information is protected by the Federal Confidentiality of Alcohol and Drug Abuse Patient Records regulations: The Federal rules restrict any use of the information to criminally investigate or prosecute any alcohol or drug abuse patient.[facility] HospitalIn the event this information is protected by the Federal Confidentiality of Alcohol and Drug Abuse Patient Records regulations: The Federal rules restrict any use of the information to criminally investigate or prosecute any alcohol or drug abuse patient.[facility] HospitalIn the event this information is protected by the Federal Confidentiality of Alcohol and Drug Abuse Patient Records regulations: The Federal rules restrict any use of the information to criminally investigate or prosecute any alcohol or drug abuse patient.[facility] HospitalIn the event this information is protected by the Federal Confidentiality of Alcohol and Drug Abuse Patient Records regulations: The Federal rules restrict any use of the information to criminally investigate or prosecute any alcohol or drug abuse patient.[facility] HospitalIn the event this information is protected by the Federal Confidentiality of Alcohol and Drug Abuse Patient Records regulations: The Federal rules restrict any use of the information to criminally investigate or prosecute any alcohol or drug abuse patient.[facility] HospitalIn the event this information is protected by the Federal Confidentiality of Alcohol and Drug Abuse Patient Records regulations: The Federal rules restrict any use of the information to criminally investigate or prosecute any alcohol or drug abuse patient.[facility] HospitalIn the event this information is protected by the Federal Confidentiality of Alcohol and Drug Abuse Patient Records regulations: The Federal rules restrict any use of the information to criminally investigate or prosecute any alcohol or drug abuse patient.[facility] HospitalIn the event this information is protected by the Federal Confidentiality of Alcohol and Drug Abuse Patient Records regulations: The Federal rules restrict any use of the information to criminally investigate or prosecute any alcohol or drug abuse patient.[facility] HospitalIn the event this information is protected by the Federal Confidentiality of Alcohol and Drug Abuse Patient Records regulations: The Federal rules restrict any use of the information to criminally investigate or prosecute any alcohol or drug abuse patient.[facility] HospitalIn the event this information is protected by the Federal Confidentiality of Alcohol and Drug Abuse Patient Records regulations: The Federal rules restrict any use of the information to criminally investigate or prosecute any alcohol or drug abuse patient.[facility] HospitalIn the event this information is protected by the Federal Confidentiality of Alcohol and Drug Abuse Patient Records regulations: The Federal rules restrict any use of the information to criminally investigate or prosecute any alcohol or drug abuse patient.[facility] HospitalIn the event this information is protected by the Federal Confidentiality of Alcohol and Drug Abuse Patient Records regulations: The Federal rules restrict any use of the information to criminally investigate or prosecute any alcohol or drug abuse patient.[facility] HospitalIn the event this information is protected by the Federal Confidentiality of Alcohol and Drug Abuse Patient Records regulations: The Federal rules restrict any use of the information to criminally investigate or prosecute any alcohol or drug abuse patient.[facility] HospitalIn the event this information is protected by the Federal Confidentiality of Alcohol and Drug Abuse Patient Records regulations: The Federal rules restrict any use of the information to criminally investigate or prosecute any alcohol or drug abuse patient.[facility] HospitalIn the event this information is protected by the Federal Confidentiality of Alcohol and Drug Abuse Patient Records regulations: The Federal rules restrict any use of the information to criminally investigate or prosecute any alcohol or drug abuse patient.[facility] HospitalIn the event this information is protected by the Federal Confidentiality of Alcohol and Drug Abuse Patient Records regulations: The Federal rules restrict any use of the information to criminally investigate or prosecute any alcohol or drug abuse patient.[facility] HospitalIn the event this information is protected by the Federal Confidentiality of Alcohol and Drug Abuse Patient Records regulations: The Federal rules restrict any use of the information to criminally investigate or prosecute any alcohol or drug abuse patient.[facility] HospitalIn the event this information is protected by the Federal Confidentiality of Alcohol and Drug Abuse Patient Records regulations: The Federal rules restrict any use of the information to criminally investigate or prosecute any alcohol or drug abuse patient.[facility] HospitalIn the event this information is protected by the Federal Confidentiality of Alcohol and Drug Abuse Patient Records regulations: The Federal rules restrict any use of the information to criminally investigate or prosecute any alcohol or drug abuse patient.[facility] HospitalIn the event this information is protected by the Federal Confidentiality of Alcohol and Drug Abuse Patient Records regulations: The Federal rules restrict any use of the information to criminally investigate or prosecute any alcohol or drug abuse patient.[facility] HospitalIn the event this information is protected by the Federal Confidentiality of Alcohol and Drug Abuse Patient Records regulations: The Federal rules restrict any use of the information to criminally investigate or prosecute any alcohol or drug abuse patient.[facility] HospitalIn the event this information is protected by the Federal Confidentiality of Alcohol and Drug Abuse Patient Records regulations: The Federal rules restrict any use of the information to criminally investigate or prosecute any alcohol or drug abuse patient.[facility] HospitalIn the event this information is protected by the Federal Confidentiality of Alcohol and Drug Abuse Patient Records regulations: The Federal rules restrict any use of the information to criminally investigate or prosecute any alcohol or drug abuse patient.[facility] HospitalIn the event this information is protected by the Federal Confidentiality of Alcohol and Drug Abuse Patient Records regulations: The Federal rules restrict any use of the information to criminally investigate or prosecute any alcohol or drug abuse patient.[facility] HospitalIn the event this information is protected by the Federal Confidentiality of Alcohol and Drug Abuse Patient Records regulations: The Federal rules restrict any use of the information to criminally investigate or prosecute any alcohol or drug abuse patient.[facility] HospitalIn the event this information is protected by the Federal Confidentiality of Alcohol and Drug Abuse Patient Records regulations: The Federal rules restrict any use of the information to criminally investigate or prosecute any alcohol or drug abuse patient.[facility] HospitalIn the event this information is protected by the Federal Confidentiality of Alcohol and Drug Abuse Patient Records regulations: The Federal rules restrict any use of the information to criminally investigate or prosecute any alcohol or drug abuse patient.[facility] HospitalIn the event this information is protected by the Federal Confidentiality of Alcohol and Drug Abuse Patient Records regulations: The Federal rules restrict any use of the information to criminally investigate or prosecute any alcohol or drug abuse patient.[facility] HospitalIn the event this information is protected by the Federal Confidentiality of Alcohol and Drug Abuse Patient Records regulations: The Federal rules restrict any use of the information to criminally investigate or prosecute any alcohol or drug abuse patient.[facility] HospitalIn the event this information is protected by the Federal Confidentiality of Alcohol and Drug Abuse Patient Records regulations: The Federal rules restrict any use of the information to criminally investigate or prosecute any alcohol or drug abuse patient.[facility] HospitalIn the event this information is protected by the Federal Confidentiality of Alcohol and Drug Abuse Patient Records regulations: The Federal rules restrict any use of the information to criminally investigate or prosecute any alcohol or drug abuse patient.[facility] HospitalIn the event this information is protected by the Federal Confidentiality of Alcohol and Drug Abuse Patient Records regulations: The Federal rules restrict any use of the information to criminally investigate or prosecute any alcohol or drug abuse patient.[facility] HospitalIn the event this information is protected by the Federal Confidentiality of Alcohol and Drug Abuse Patient Records regulations: The Federal rules restrict any use of the information to criminally investigate or prosecute any alcohol or drug abuse patient.[facility] HospitalIn the event this information is protected by the Federal Confidentiality of Alcohol and Drug Abuse Patient Records regulations: The Federal rules restrict any use of the information to criminally investigate or prosecute any alcohol or drug abuse patient.[facility] HospitalIn the event this information is protected by the Federal Confidentiality of Alcohol and Drug Abuse Patient Records regulations: The Federal rules restrict any use of the information to criminally investigate or prosecute any alcohol or drug abuse patient.[facility] HospitalIn the event this information is protected by the Federal Confidentiality of Alcohol and Drug Abuse Patient Records regulations: The Federal rules restrict any use of the information to criminally investigate or prosecute any alcohol or drug abuse patient.[facility] Reason for Visit (unrecogniz ed section and content) Reason Comments Occupational Therapy OT Progress Note Specialty Diagnoses / Procedures Referred By Shiraz t Referred To Contact OCCUPATIONAL THERAPY Diagnoses Blindness right eye category 3, blindness left eye category 4 Procedures CONSULT TO DIRT SHOVELER OCCUPATIONAL THERAPY EVMA HIGH COMPLEX 60 MINS Wolf Mason, OD [address] 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 [address] [place] [address] Michelle Perez, OT/L Referral ID Status Reason Start Date Expiration Date Visits Re quested Visits Authorized [id number] Closed 09/19/2022 12/18/2022 1 1 Reason Comments [...] Procedures EST ADULT Self Cynthia Ramos MD [address] [place] [address] Referral ID Status Reason Start Date Expiration Date Visits Re quested Visits Authorized [id number] Closed 09/25/2022 12/24/2022 1 1 Reason Comments Physical preop clearance for surgeries on 11/07/22, 11/15/22 Reason Comments Occupational Therapy Reason Comments Established Patient Pain Specialty Diagnoses / Procedures Referred By Contact Referred To Contact [facility] Diagnoses Hand pain Procedures HAND PAIN Self [facility] [address] [place] [address] Referral ID Status Reason Start Date Expiration Date V isits Requested Visits Authorized [id number] Closed OON/Self Pay Override 09/11/2022 09/01/2023 1 [...] US Specialty Diagnoses / Procedures Referred By Shiraz johnson Referred To Contact [facility] Diagnoses Abnormal mammogram Procedures US BREAST LTD RT US BREAST UNI REAL TIME WITH IMAGE LIMITED Destiney Mckeon APRN.CIVIL ENGINEER [employer] [address] [place] [address] [facility] [address] [place] [address] Referral ID Status Reason Start Date Expiration Date V isits Requested Visits Authorized [id number] Closed Auto-Generate d Referral 09/28/2022 10/28/2023 1 1 Specialty Diagnoses / Procedures Referred By Shiraz johnson Referred To Contact [facility] Diagnoses Encounter for screening mammogram for high-risk patient Procedures mamograms screening Ifeoma Davis MD [address] [place] [address] [facility] [address] [place] [address] Referral ID Status Reason Start Date Expiration Date V isits Requested Visits Authorized [id number] Closed OON/Self Pay Override 09/11/2022 09/01/2023 1 1 Reason Onset Date Comments Refill Request 07/23/2023 Reason Comments Glaucoma Follow Up 6 month HVF 24-2 OU & MAC OCT Reason Onset Date Comments Population Health Navigation Outreach 10/04/2023 Shaniko Care Gaps Reason Onset Date Comments Population Health Navigation Outreach 10/25/2023 Shaniko AWV Reason Onset Date Comments Refill Request [...] Reason Comments Letter Reason Onset Date Comments [facility] Health Navigation Outreach 05/29/2024 Med adherence Reason Comments F/U 6 months needs some home heal th care due to vision loss Reason Onset Date Comments [facility] Navigation Outreach 06/12/2024 Bradly Javier PCSA Reason Onset Date Comments [facility] Navigation Outreach 06/15/2024 Med Adherence Reason Comments Patient Question Reason Onset Date Comments Refill Request 06/29/2024 Reason Comments Headache TINOCO, bodyaches, fatig ue x 3 days Reason Comments Orders Reason Comments Fax Request Reason Comments Results Reason Onset Date Comments [facility] Navigation Outreach 08/10/2024 Bradly Javier PCSA Reason Onset [...] Reason Comments Recheck 10/31/24 UA done at [facility] care, always tired Reason Comments [...] 4/> ADDL BRIDGET ATTND POLYSOMNOGRAM Kimberley Ambrocio, STATION DETECTIVE.[employer]IVIL [employer]INE[employer] [address] [place] [address] Phone: tel: fax: [facility] [address] [place] [id number] Phone: tel: fax: Referral ID Status Reason Start Date Expiration Date Visits Re quested Visits Authorized [id number] Closed 11/04/2024 09/01/2025 1 1 Reason Comments [...] Care Teams (unrecognized sec tion and content) Help Desk Representative Relationship Specialty Start Date End Date Ifeoma Davis MD [address] [place] [address] PCP - General Internal Medicine 12/07/14 Help Desk Representative Relationship Specialty Start Date End Date Ifeoma Davis MD [address] [place] [address] PCP - General Internal Medicine 12/07/14 Help Desk Representative Relationship Specialty Start Date End Date Ifeoma Davis MD [address] [place] [address] PCP - General Internal Medicine 12/07/14 Help Desk Representative Relationship Specialty Start Date End Date Ifeoma Davis MD [address] [place] [address] PCP - General Internal Medicine 12/07/14 Help Desk Representative Relationship Specialty Start Date End Date Ifeoma Davis MD [address] [place] [address] PCP - General Internal Medicine 12/07/14 Help Desk Representative Relationship Specialty Start Date End Date Ifeoma Davis MD [address] [place] [address] PCP - General Internal Medicine 12/07/14 Help Desk Representative Relationship Specialty Start Date End Date Ifeoma Davis MD [address] [place] [address] PCP - General Internal Medicine 12/07/14 Help Desk Representative Relationship Specialty Start Date End Date Ifeoma Davis MD [address] [place] [address] PCP - General Internal Medicine 12/07/14 Help Desk Representative Relationship Specialty Start Date End Date Ifeoma Davis MD [address] [place] [address] PCP - General Internal Medicine 12/07/14 Help Desk Representative Relationship Specialty Start Date End Date Ifeoma Davis MD [address] [place] [address] PCP - General Internal Medicine 12/07/14 Help Desk Representative Relationship Specialty Start Date End Date Ifeoma Davis MD [address] [place] [address] PCP - General Internal Medicine 12/07/14 Help Desk Representative Relationship Specialty Start Date End Date Ifeoma Davis MD [address] [place] [address] PCP - General Internal Medicine 12/07/14 Help Desk Representative Relationship Specialty Start Date End Date Ifeoma Davis MD [address] [place] [address] PCP - General Internal Medicine 12/07/14 Help Desk Representative Relationship Specialty Start Date End Date Ifeoma Davis MD [address] [place] [address] PCP - General Internal Medicine 12/07/14 Help Desk Representative Relationship Specialty Start Date End Date Ifeoma Davis MD [address] [facility] [place] [address] PCP - General Internal Medicine 12/07/14 Help Desk Representative Relationship Specialty Start Date End Date Ifeoma Davis MD [address] [facility] [place] [address] PCP - General Internal Medicine 12/07/14 Help Desk Representative Relationship Specialty Start Date End Date Ifeoma Davis MD [address] [facility] [place] [address] PCP - General Internal Medicine 12/07/14 Help Desk Representative Relationship Specialty Start Date End Date Ifeoma Davis MD [address] [facility] [place] [address] PCP - General Internal Medicine 12/07/14 Help Desk Representative Relationship Specialty Start Date End Date Ifeoma Davis MD [address] [facility] [place] [address] PCP - General Internal Medicine 12/07/14 Help Desk Representative Relationship Specialty Start Date End Date Ifeoma Davis MD [address] [facility] [place] [address] PCP - General Internal Medicine 12/07/14 Help Desk Representative Relationship Specialty Start Date End Date Ifeoma Davis MD [address] [facility] [place] [address] PCP - General Internal Medicine 12/07/14 Help Desk Representative Relationship Specialty Start Date End Date Ifeoma Davis MD [address] [facility] [place] [address] PCP - General Internal Medicine 12/07/14 Help Desk Representative Relationship Specialty Start Date End Date Ifeoma Davis MD [address] [facility] [place] [address] PCP - General Internal Medicine 12/07/14 Help Desk Representative Relationship Specialty Start Date End Date Ifeoma Davis MD [address] [place] [address] PCP - General Internal Medicine 12/07/14 Help Desk Representative Relationship Specialty Start Date End Date Ifeoma Davis MD [address] [place] [address] PCP - General Internal Medicine 12/07/14 Help Desk Representative Relationship Specialty Start Date End Date Ifeoma Davis MD [address] [place] [address] PCP - General Internal Medicine 12/07/14 Help Desk Representative Relationship Specialty Start Date End Date Ifeoma Davis MD [address] [place] [address] PCP - General Internal Medicine 12/07/14 Help Desk Representative Relationship Specialty Start Date End Date Ifeoma Davis MD [address] [place] [address] PCP - General Internal Medicine 12/07/14 Help Desk Representative Relationship Specialty Start Date End Date Ifeoma Davis MD [address] [place] [address] PCP - General Internal Medicine 12/07/14 Help Desk Representative Relationship Specialty Start Date End Date Ifeoma Davis MD [address] [place] [address] PCP - General Internal Medicine 12/07/14 Help Desk Representative Relationship Specialty Start Date End Date Ifeoma Davis MD [address] [place] [address] PCP - General Internal Medicine 12/07/14 Help Desk Representative Relationship Specialty Start Date End Date Ifeoma Davis MD [address] [place] [address] PCP - General Internal Medicine 12/07/14 Help Desk Representative Relationship Specialty Start Date End Date Ifeoma Davis MD [address] [facility] [place] [address] PCP - General Internal Medicine 12/07/14 Help Desk Representative Relationship Specialty Start Date End Date Ifeoma Davis MD [address] [facility] [place] [address] PCP - General Internal Medicine 12/07/14 Help Desk Representative Relationship Specialty Start Date End Date Ifeoma Davis MD [address] [facility] [place] [address] PCP - General Internal Medicine 12/07/14 Help Desk Representative Relationship Specialty Start Date End Date Ifeoma Davis MD [address] [facility] [place] [address] PCP - General Internal Medicine 12/07/14 Team Status: Active Member Role Status Dates Dr. Ifeoma Davis MD Family Provider Active Dr. Ifeoma Davis MD Primary Care Provider Active Team Status: Inactive Member Role Status Dates Dr. Ifeoma Davis MD Primary Care Provider Active CAREY VALLE Attending Provider, Referring Provide r Active Help Desk Representative Relationship Specialty Start Date End Date Ifeoma Davis MD [address] [facility] [place] [address] PCP - General Internal Medicine 12/07/14 Help Desk Representative Relationship Specialty Start Date End Date Ifeoma Davis MD [address] [facility] [place] [address] PCP - General Internal Medicine 12/07/14 Help Desk Representative Relationship Specialty Start Date End Date Ifeoma Davis MD [address] [facility] [place] [address] PCP - General Internal Medicine 12/07/14 Help Desk Representative Relationship Specialty Start Date End Date Ifeoma Davis MD [address] [facility] [place] [address] PCP - General Internal Medicine 12/07/14 Help Desk Representative Relationship Specialty Start Date End Date Ifeoma Davis MD [address] [place] [address] PCP - General Internal Medicine 12/07/14 Help Desk Representative Relationship Specialty Start Date End Date Ifeoma Davis MD [address] [place] [address] PCP - General Internal Medicine 12/07/14 Help Desk Representative Relationship Specialty Start Date End Date Ifeoma Davis MD [address] [place] [address] PCP - General Internal Medicine 12/07/14 Help Desk Representative Relationship Specialty Start Date End Date Ifeoma Davis MD [address] [place] [address] PCP - General Internal Medicine 12/07/14 Help Desk Representative Relationship Specialty Start Date End Date Ifeoma Davis MD [address] [place] [address] PCP - General Internal Medicine 12/07/14 Help Desk Representative Relationship Specialty Start Date End Date Ifeoma Davis MD [address] [place] [address] PCP - General Internal Medicine 12/07/14 Help Desk Representative Relationship Specialty Start Date End Date Ifeoma Davis MD [address] [place] [address] PCP - General Internal Medicine 12/07/14 Help Desk Representative Relationship Specialty Start Date End Date Ifeoma Davis MD [address] [facility] [place] [address] PCP - General Internal Medicine 12/07/14 Help Desk Representative Relationship Specialty Start Date End Date Ifeoma Davis MD [address] [facility] [place] [address] PCP - General Internal Medicine 12/07/14 Help Desk Representative Relationship Specialty Start Date End Date Ifeoma Davis MD [address] [facility] [place] [address] PCP - General Internal Medicine 12/07/14 Team [...] Pozo DO Attending Provider, Referring Provider Active Help Desk Representative Relationship Specialty Start Date End Date Ifeoma Davis MD [address] [facility] [place] [address] PCP - General Internal Medicine 12/07/14 Help Desk Representative Relationship Specialty Start Date End Date Ifeoma Davis MD [address] [facility] [place] [address] PCP - General Internal Medicine 12/07/14 Help Desk Representative Relationship Specialty Start Date End Date Ifeoma Davis MD [address] [facility] [place] [address] PCP - General Internal Medicine 12/07/14 Help Desk Representative Relationship Specialty Start Date End Date Ifeoma Davis MD [address] [place] [address] PCP - General Internal Medicine 12/07/14 Help Desk Representative Relationship Specialty Start Date End Date Ifeoma Davis MD [address] [place] [address] PCP - General Internal Medicine 12/07/14 Help Desk Representative Relationship Specialty Start Date End Date Ifeoma Davis MD [address] [place] [address] PCP - General Internal Medicine 12/07/14 Help Desk Representative Relationship Specialty Start Date End Date Ifeoma Davis MD [address] [place] [address] PCP - General Internal Medicine 12/07/14 Help Desk Representative Relationship Specialty Start Date End Date Ifeoma Davis MD [address] [place] [address] PCP - General Internal Medicine 12/07/14 Help Desk Representative Relationship Specialty Start Date End Date Ifeoma Davis MD [address] [place] [address] PCP - General Internal Medicine 12/07/14 Help Desk Representative Relationship Specialty Start Date End Date Ifeoma Davis MD [address] [place] [address] PCP - General Internal Medicine 12/07/14 Help Desk Representative Relationship Specialty Start Date End Date Ifeoma Davis MD [address] [place] [address] PCP - General Internal Medicine 12/07/14 Help Desk Representative Relationship Specialty Start Date End Date Ifeoma Davis MD [address] [place] [address] PCP - General Internal Medicine 12/07/14 Help Desk Representative Relationship Specialty Start Date End Date Ifeoma Davis MD [address] [place] [address] PCP - General Internal Medicine 12/07/14 Help Desk Representative Relationship Specialty Start Date End Date Ifeoma Davis MD [address] [place] [address] PCP - General Internal Medicine 12/07/14 Help Desk Representative Relationship Specialty Start Date End Date Ifeoma Davis MD [address] [place] [address] PCP - General Internal Medicine 12/07/14 Help Desk Representative Relationship Specialty Start Date End Date Ifeoma Davis MD [address] [place] [address] PCP - General Internal Medicine 12/07/14 Virginia Avalos PA-C [address] [place] [address] [employer] Family Medicine 08/09/24 David Anna APRN.CNP [address] [place] [address] [employer] Internal Medicine 08/09/24 Domitila Knapp PA-C [address] [place] [address] [employer] Family Medicine 08/09/24 Help Desk Representative Relationship Specialty Start Date End Date Ifeoma Davis MD [address] [place] [address] PCP - General Internal Medicine 12/07/14 Virginia Avalos PA-C [address] [place] [address] [employer] Family Medicine 08/09/24 David Anna APRN.CIVIL ENGINEER LAND DEVELOPMENT [address] [place] [address] [employer] Internal Medicine 08/09/24 Domitila Knapp PA-C [address] [place] [address] [employer] Family Medicine 08/09/24 Help Desk Representative Relationship Specialty Start Date End Date Ifeoma Davis MD [address] [place] [address] PCP - General Internal Medicine 12/07/14 Virginia Avalos PA-C [address] [place] [address] [employer] Family Medicine 08/09/24 David Anna APRN.CIVIL ENGINEER LAND DEVELOPMENT [address] [place] [address] [employer] Internal Medicine 08/09/24 Domitila Knapp PA-C [address] [place] [address] [employer] Family Medicine 08/09/24 Help Desk Representative Relationship Specialty Start Date End Date Ifeoma Davis MD [address] [place] [address] PCP - General Internal Medicine 12/07/14 Virginia Avalos PA-C [address] [place], [place] [id number] [phone] Associate School Psychologist Family [facility] 08/09/24 David Anna APRN.CIVIL ENGINEER LAND DEVELOPMENT [address] [place] [address] Associate [employer] Psychologist Internal Medicine 08/09/24 Domitila Knapp PA-C [address] [place] [address] Associate [employer] Psychologist Family Medicine 08/09/24 Help Desk Representative Relationship Specialty Start Date End Date Ifeoma Davis MD [address] [place] [address] PCP - General Internal Medicine 12/07/14 Virginia Avalos PA-C [address] [place], [place] [id number] [phone] Associate [employer] Family Medicine 08/09/24 David Anna APRN.CIVIL ENGINEER LAND DEVELOPMENT [address] [place] [address] [employer]ologist Internal Medicine 08/09/24 Domitila Knapp PA-C [address] [place] [address] [employer] Family Medicine 08/09/24 Help Desk Representative Relationship Specialty Start Date End Date Ifeoma Davis MD [address] [place] [address] PCP - General Internal Medicine 12/07/14 Virginia Avalos PA-C [address] [place] [address] [employer] Family Medicine 08/09/24 David Anna APRN.CIVIL ENGINEER LAND DEVELOPMENT [address] [place] [address] [employer] Internal Medicine 08/09/24 Domitila Knapp PA-C [address] [place] [address] Associate [employer]ologist Family Medicine 08/09/24 Help Desk Representative Relationship Specialty Start Date End Date Ifeoma Davis MD [address] [place] [address] PCP - General Internal Medicine 12/07/14 Virginia Avalos PA-C [address] [place] [address] [employer] Family Medicine 08/09/24 David Anna APRN.CIVIL ENGINEER LAND DEVELOPMENT [address] [place] [address] Associate [employer]ologist Internal Medicine 08/09/24 Domitila Knapp PA-C [address] [place] [address] Associate [employer] Psychologist Family Medicine 08/09/24 Help Desk Representative Relationship Specialty Start Date End Date Ifeoam Davis MD [address] [place] [address] PCP - General Internal Medicine 12/07/14 Virginia Avalos PA-C [address] [place] [address] [employer] Family Medicine 08/09/24 David Anna APRN.CIVIL ENGINEER [employer]AND DEVELOPMENT [address] [place] [address] Associate [employer] Psychologist Internal Medicine 08/09/24 Domitila Knapp PA-C [address] [place] [address] Associate [employer] Psychologist Family Medicine 08/09/24 Help Desk Representative Relationship Specialty Start Date End Date Ifeoma Davis MD [address] [place] [address] PCP - General Internal Medicine 12/07/14 Virginia Avalos PA-C [address] [place] [address] [phone] Associate [employer] Family Medicine 08/09/24 David Anna APRN.CIVIL ENGINEER [employer]AND DEVELOPMENT [address] [place] [address] Associate [employer]ologist Internal Medicine 08/09/24 Domitila Knapp PA-C [address] [place] [address] Associate [employer] Psychologist Family Medicine 08/09/24 Help Desk Representative Relationship Specialty Start Date End Date Ifeoma Davis MD [address] [place] [address] PCP - General Internal Medicine 12/07/14 Virginia Avalos PA-C [address] [place] [address] Associate [employer]ologist Family Medicine 08/09/24 David Anna APRN.CIVIL ENGINEER LAND DEVELOPMENT [address] [place] [address] Associate [employer]ologist Internal Medicine 08/09/24 Domitila Knapp PA-C [address] [place] [address] Associate [employer] Psychologist Family Medicine 08/09/24 Help Desk Representative Relationship Specialty Start Date End Date Ifeoma Davis MD [address] [place] [address] PCP - General Internal Medicine 12/07/14 Virginia Avalos PA-C [address] [place] [address] Associate [employer]ologist Family Medicine 08/09/24 David Anna APRN.CIVIL ENGINEER LAND DEVELOPMENT [address] [place] [address] Associate [employer]ologist Internal Medicine 08/09/24 Domitila Knapp PA-C [address] [place] [address] Associate School Psychologist Family [facility] 08/09/24 Help Desk Representative Relationship Specialty Start Date End Date Ifeoma Davis MD [address] [place] [address] PCP - General Internal Medicine 12/07/14 Virginia Avalos PA-C [address] [place] [address] Associate [employer] Psychologist Family Medicine 08/09/24 David Anna APRN.CIVIL ENGINEER LAND DEVELOPMENT [address] [place] [address] Associate [employer] Psychologist Internal Medicine 08/09/24 Domitila Knapp PA-C [address] [place], [place] 354971 [facility] 08/09/24 Help Desk Representative Relationship Specialty Start Date End Date Ifeoma Davis MD [address] [place], [place] 158541 PCP - General Internal Medicine 12/07/14 Virginia Avalos PA-C [address] [place] [address] [facility] 08/09/24 David Anna APRN.CNP [address] [place], [place] 555831 [facility] Internal [facility] 08/09/24 Domitila Knapp PA-C [address] [place], [place] 335391 [facility] 08/09/24 Team Status: Inactive Member Role Status [...] November 24, 2024 End: November 24, 2024 OXYGEN SYSTEM TESTERJermaine Prakash Referring Provider Active Star t: November 24, 2024 End: November 24, 2024 Help Desk Representative Relationship Specialty Start Date End Date Ifeoma Davis MD [address] [place], [place] 463111 PCP - General Internal Medicine 12/07/14 David Anna APRN.CIVIL ENGINEER [employer] DEVELOPMENT [address] [place], [place] 225261 [employer] Internal Medicine 08/09/24 Help Desk Representative Relationship Specialty Start Date End Date Ifeoma Davis MD [address] [place], [place] 242355 [phone] PCP - General Internal Medicine 12/07/14 David Anna APRN.CIVIL ENGINEER LAND DEVELOPMENT [address] [place] [address] [employer] Internal Medicine 08/09/24 Help Desk Representative Relationship Specialty Start Date End Date Ifeoma Davis MD [address] [place] [address] PCP - General Internal Medicine 12/07/14 David Anna APRN.CIVIL ENGINEER LAND DEVELOPMENT [address] [place] [address] [employer] Internal Medicine 08/09/24 Help Desk Representative Relationship Specialty Start Date End Date Ifeoma Davis MD [address] [place] [address] PCP - General Internal Medicine 12/07/14 Virginia Avalos PA-C [address] [place] [address] Associate [employer] Psychologist Family Medicine 08/09/24 11/22/24 David Anna APRN.CIVIL ENGINEER LAND DEVELOPMENT [address] [place] [address] [employer] Internal Medicine 08/09/24 Domitila Knapp PA-C [address] [place] [address] Associate [employer] Psychologist Family Medicine 08/09/24 11/22/24 Help Desk Representative Relationship Specialty Start Date End Date Ifeoam Davis MD [address] [place] [address] PCP - General Internal Medicine 12/07/14 David Anna APRN.CIVIL ENGINEER LAND DEVELOPMENT [address] [place] [address] [employer] Internal Medicine 08/09/24 Help Desk Representative Relationship Specialty Start Date End Date Ifeoma Davis MD [address] [place] [address] PCP - General Internal Medicine 12/07/14 David Anna, MURTAZA.CIVIL ENGINEER LAND DEVELOPMENT [address] [place] [address] Associate [employer]ologist Internal Medicine 08/09/24 Help Desk Representative Relationship Specialty Start Date End Date Ifeoma Davis MD [address] [place] [address] PCP - General Internal Medicine 12/07/14 David Anna APRN.CIVIL ENGINEER LAND DEVELOPMENT [address] [place] [address] [employer] Internal Medicine 08/09/24 Help Desk Representative Relationship Specialty Start Date End Date Ifeoma Davis MD [address] [place] [address] PCP - General Internal Medicine 12/07/14 Virginia Avalos PA-C [address] [place] [address] Associate [employer] Psychologist Family Medicine 08/09/24 11/22/24 David Anna APRN.CIVIL ENGINEER LAND DEVELOPMENT [address] [place] [address] [employer] Internal Medicine 08/09/24 Domitila Knapp PA-C [address] [place] [address] Associate School Psychologist Family [facility] 08/09/24 11/22/24 Help Desk Representative Relationship Specialty Start Date End Date Ifeoma Davis MD [address] [place], [place] 94[address] PCP - General Internal Medicine 12/07/14 David Anna APRN.CIVIL ENGINEER LAND DEVELOPMENT [address] [place], [place] 648101 [employer] Internal Medicine 08/09/24 Team Status: Active Member [...] March 10, 2025 End: March 10, 2025 Help Desk Representative Relationship Specialty Start Date End Date Ifeoma Davis MD [address] [place], [place] 927731 PCP - General Internal Medicine 12/07/14 David Anna APRN.CIVIL ENGINEER LAND DEVELOPMENT [address] [place], [place] 881081 [employer] Internal Medicine 08/09/24 Help Desk Representative Relationship Specialty Start Date End Date Ifeoma Davis MD [address] [place], [place] 794891 PCP - General Internal Medicine 12/07/14 David Anna APRN.CIVIL ENGINEER LAND DEVELOPMENT [address] [place], [place] 648501 [employer] Internal Medicine 08/09/24 Help Desk Representative Relationship Specialty Start Date End Date Ifeoma Davis MD [address] [place] [address] PCP - General Internal Medicine 12/07/14 David Anna APRN.CIVIL ENGINEER LAND DEVELOPMENT [address] [place] [address] [employer] Internal Medicine 08/09/24 Help Desk Representative Relationship Specialty Start Date End Date Ifeoma Davis MD [address] [place] [address] PCP - General Internal Medicine 12/07/14 David Anna, STATION DETECTIVE.CIVIL ENGINEER LAND DEVELOPMENT [address] [facility] [place] [address] [employer]ologist Internal Medicine 08/09/24 Help Desk Representative Relationship Specialty Start Date End Date Ifeoma Davis MD [address] [place] [address] PCP - General Internal Medicine 12/07/14 David Anna, STATION DETECTIVE.CIVIL ENGINEER LAND DEVELOPMENT [address] [place] [address] [employer]ologist Internal Medicine 08/09/24 Help Desk Representative Relationship Specialty Start Date End Date Ifeoma Davis MD [address] [place] [address] PCP - General Internal Medicine 12/07/14 David Anna APRN.CIVIL ENGINEER LAND DEVELOPMENT [address] [facility] [place] [address] [employer] Psychologist Internal Medicine 08/09/24 Help Desk Representative Relationship Specialty Start Date End Date Ifeoma Davis MD [address] [place], [place] 044431 PCP - General Internal Medicine 12/07/14 David Anna APRN.CIVIL ENGINEER LAND DEVELOPMENT [address] [place], [place] 105081 [employer] Internal Medicine 08/09/24 Help Desk Representative Relationship Specialty Start Date End Date Ifeoma Davis MD [address] [place], [place] 042191 PCP - General Internal Medicine 12/07/14 Virginia Avalos PA-C [address] [place] [address] Associate [employer] Psychologist Family Medicine 08/09/24 11/22/24 David Anna APRN.CIVIL ENGINEER LAND DEVELOPMENT [address] [place] [address] Associate [employer] Psychologist Internal Medicine 08/09/24 Domitila Knapp PA-C [address] [place] [address] Associate [employer] Psychologist Family Medicine 08/09/24 11/22/24 Help Desk Representative Relationship Specialty Start Date End Date Ifeoma Davis MD [address] [place], [place] 959841 PCP - General Internal Medicine 12/07/14 Virginia Avalos PA-C [address] [place] [address] [employer] Psychologist Family Medicine 08/09/24 11/22/24 David Anna, STATION DETECTIVE.CIVIL ENGINEER LAND DEVELOPMENT [address] [place] [address] [employer] Psych[employer] Internal Medicine 08/09/24 Domitila Knapp PA-C [address] [place] [address] [facility] Family Medicine 08/09/24 11/22/24 Team Status: Inactive [...] April 16, 2025 End: April 16, 2025 Help Desk Representative Relationship Specialty Start Date End Date Ifeoma Davis MD [address] [facility], [place] [id number] PCP - General Internal Medicine 12/07/14 David Anna APRN.CIVIL ENGINEER [employer]AND DEVELOPMENT [address] [place] [address] Associate School Psychologist Internal Medicine 08/09/24 Help Desk Representative Relationship Specialty Start Date End Date Ifeoma Davis MD [address] [facility], [place] [id number] PCP - General Internal Medicine 12/07/14 David Anna, STATION DETECTIVE.CIVIL ENGINEER [employer]ELOPMENT [address] [place] [address] Associate School Psychologist Internal Medicine 08/09/24 Help Desk Representative Relationship Specialty Start Date End Date Ifeoma Davis MD [address] [place], [place] [id number] PCP - General Internal Medicine 12/07/14 David Anna, STATION DETECTIVE.CIVIL ENGINEER [employer]AND DEVELOPMENT [address] [place], [place] [id number] Associate School Psychologist Internal Medicine 08/09/24 Team Status: Active Member [...] 2025 End: June 04, 2025 Team Status: Active Member Role/Relationship Status Dates Dr. Ifeoma Davis MD Primary care physician Active Start: June 17, 2025 Dr. Edgar Beltran MD Attending physician Active Start: June 17, 2025 Dr. Phillip Pozo DO Referring Provider Active Start: June 17, 2025 Team Status: Inactive Member Role/Relationship Status Dates Dr. Ifeoma Davis MD Primary care physician Active Start: June 17, 2025 End: June 17, 2025 Dr. Patti Piña DO Attending physician Active Start: June 17, 2025 End: June 17, 2025 Dr. Patti Piña DO Emergency Department Physician Ac tive Start: June 17, 2025 End: June 17, 2025 Team Status: Active Member Role/Relationship Status Dates Dr. Ifeoma Davis MD Primary care physician Active Start: June 21, 2025 Dr. Phillip Pozo DO Attending physician Active Start: June 21, 2025 Dr. Phillip Pozo DO Referring Provider Active Start: June 21, 2025 Team Status: Inactive Member Role/Relationship Status Dates Dr. Ifeoma Davis MD Primary care physician Active Start: June 23, 2025 End: June 23, 2025 Dr. Geovanni Sorto DO Emergency Department Physician Active Start: June 23, 2025 End: June 23, 2025 Team Status: Inactive Member Role/Relationship Status Dates Dr. Ifeoma Davis MD Primary care physician Active Start: June 29, 2025 End: June 29, 2025 Dr. Renato Hanley , DO Emergency Department Physician A ctive Start: June 29, 2025 End: June 29, 2025 Scheduled Active and Recently Administ ered [...] (Given - Provid er: Jonathon Eugene MD) ipslebvf-xvdmvvbmq-zpvgrmkndhvap 3.5 mg/g-10,000 unit/g-0.1 % (POLYDEX) X (OR/PROCEDURE) [...] % (OPTICAINE) X (OR/PROCEDURE) PRN, Starting on 06/25/22 at 1002, Until Sat06/26/22 at 0303, Intraprocedure 1002 (Given - Provid er: Mallika Holloway RN)1046 (Given - Provider: Mallika Holloway RN) INFORMATION SOURCE (unrecogn ized section and content) DATE CREATED AUTHOR 11/01/2022 [facility] nt DATE CREATED AUTHOR AUTHOR'S ORGANIZ ATION 11/09/2022 [facility] DATE CREATED AUTHOR AUTHOR'S ORGANIZ ATION 01/08/2025 [facility] DATE CREATED AUTHOR AUTHOR'S ORGANIZ ATION 07/08/2025 [facility] DATE CREATED AUTHOR AUTHOR'S ORGANIZ ATION 07/10/[address] [facility] Goals (unrecognized section and content) Goals may [...] BE BASED ON THE PRIMARY CLINICAL RECORDS. [employer] provides no warranty or guarantee of the accuracy or completeness of information in this document.
[2025-07-10] MEDS: 0.9% Normal Saline (1000mL) 1,000 ML 999 ML IV (15:33)
[2025-07-10] MEDS: DiphenhydrAMINE 50 MG/ML Syringe IV (15:35)
--- NOTE | 2025-07-10 16:57 | EX.ED.DYSGE1 ---
HPI History of Present Illness Chief Complaint: Headache Informant: patient and friend Narrative Narrative: Patient is a 55-year-old female with past medical history of hypertension anxiety and fibromyalgia. She states she was recently at the [facility] where she had an MRI of her brain and neck concerning for potential carotid obstruction or tear. She states that at the [facility] she had MRIs which confirmed no acute bleed or mass. She states she was treated with IV fluids and magnesium and Tylenol secondary to her recurrent headache. Patient states that since returning home headache has persisted. She denies any trauma since returning home she denies any fevers or chills or concern for illness. She states that she is been at this hospital previously for headache and that the last time she was here the medication did resolve the headache and therefore she presents at this time for symptom improvement [facility] Medical History (Updated 07/12/25 @ 00:[address] Renato Hanley, DO) PXE (pseudoxanthoma elasticum) Wears glasses Depression Anxiety High cholesterol Ambulates with cane GERD (gastroesophageal reflux disease) Non-smoker Hip arthritis Degenerative scoliosis Lumbar radiculopathy Spondylolisthesis History of trigger finger Fibromyalgia Restless legs Hot flashes Legal blindness of both eyes as defined in [place] PXE (pseudoxanthoma elasticum) Hypertension Home Medications Medication Instructions Recorded Last Taken Type atorvastatin 40 mg tablet 40 mg PO QHS HLD 01/17/17 Unknown History meloxicam 15 mg tablet 15 mg PO DAILY PAIN 11/20/21 Unknown History omeprazole 20 mg capsule,delayed 20 mg PO DAILY GERD 11/20/21 Unknown History release amlodipine 2.5 mg tablet 2.5 mg PO QDAY HTN 12/09/24 Unknown History aspirin 81 mg tablet,delayed 81 mg PO QDAY HEART HEALTH 12/09/24 Unknown History release (Adult Low Dose Aspirin) escitalopram oxalate 10 mg tablet 10 mg PO QDAY ANXIETY 12/09/24 Unknown History estradiol 0.1 mg/24 hr semiweekly 1 patch transdermal QWEEK HORMONE 12/09/24 Unknown History transdermal patch (Darling) REPLACEMENT lisinopril 10 1 tab PO QDAY HTN 12/09/24 Unknown History mg-hydrochlorothiazide 12.5 mg tablet magnesium 200 mg tablet 200 mg PO QDAY SUPPLEMENT 12/09/24 Unknown History zolpidem 5 mg tablet 5 mg PO QHS PRN sleep 12/09/24 Unknown History fluticasone propionate 50 2 spray intranasal QDAY ALLERGIES 03/10/25 Unknown History mcg/actuation nasal spray,suspension oxycodone-acetaminophen 5 mg-325 0.5 - 1 tab PO TID PRN pain 03/10/25 Unknown History mg tablet cyclobenzaprine 10 mg tablet 10 mg PO HS MUSCLE SPASM 06/04/25 Unknown History Lactobacillus 25 billion 1 cap PO DAILY SUPPLMENT 06/11/25 Unknown History cell-Bifido 25 billion hpil-HMW-lodbr capsule cevimeline 30 mg capsule 1 cap PO DAILY DRY MOUTH 06/11/25 Unknown History cholecalciferol (vitamin D3) 50 50 mcg PO DAILY SUPPLEMENT 06/11/25 Unknown History mcg (2,000 unit) capsule (Vitamin D3) progesterone micronized 100 mg 100 mg PO QHS HORMONE REPLACMENT 06/11/25 Unknown History capsule bupropion HCl 150 mg 24 hr tablet, 150 mg PO DAILY 06/17/25 Unknown History extended release clopidogrel 75 mg tablet (Plavix) 75 mg PO DAILY #30 tabs 06/17/25 Unknown Rx gabapentin 100 mg capsule 100 mg PO DAILY 06/17/25 Unknown History potassium chloride 10 mEq 10 meq PO DAILY 06/17/25 Unknown History tablet,extended release prednisolone acetate 1 % eye 1 drp LEFT EYE 4X/DAY 06/17/25 Unknown History drops,suspension timolol maleate 0.5 % eye drops 1 drp LEFT EYE BID 06/17/25 Unknown History trazodone 100 mg tablet 100 mg PO QHS 06/17/25 Unknown History triamcinolone acetonide 0.025 % applic topical BID 06/17/25 Unknown History topical cream Allergy/AdvReac Type Severity Reaction Status Date / Time hydrocodone bitartrate (From AdvReac Itching Verified 07/10/25 14:53 Vicodin) nitrofurantoin (From AdvReac Other Verified 07/10/25 14:53 Macrobid) nitrofurantoin AdvReac Other Verified 07/10/25 14:53 macrocrystalline (From Macrobid) propoxyphene (From AdvReac Other Verified 07/10/25 14:53 Darvocet-N) tramadol HCl (From Ultram) AdvReac Other Verified 07/10/25 14:53 Family History Father Lung cancer Mother COPD (chronic obstructive pulmonary disease) CVA (cerebral vascular accident) Son Myocardial infarction Other Breast cancer Ovarian cancer Surgical History History of eye surgery Status post glaucoma surgery S/P right knee arthroscopy S/P Social History household members: none housing: house Smoking Status: Never smoker alcohol intake: current alcohol intake frequency: holidays/special occasions only substance use type: does not use ROS ROS ED Constitutional Constitutional ED: Denies chills or fever(s) Eyes Eyes: Reports other Details: Positive photophobia ENT ENT ED: Denies rhinorrhea or sore throat Cardiovascular Cardiovascular: Denies chest pain Respiratory/Chest Respiratory/Chest: Denies cough or dyspnea Gastrointestinal Gastrointestinal: Reports nausea; Denies abdominal pain, diarrhea or vomiting Musculoskeletal Musculoskeletal: Reports myalgias Integumentary Denies rash Neurologic Neurologic: Reports headache(s); Denies paresthesias or weakness Hematologic/Lymphatic Hematologic/Lymphatic: Denies easy bleeding or easy bruising EXAM Physical Exam Const Vital Signs: 07/10/25 14:53 Temperature 96.3 F L Temperature Source Temporal Pulse Rate 96 Respiratory Rate 18 Blood Pressure 125/85 H Blood Pressure Mean 98 Pulse Ox 98 Oxygen Delivery Method Room Air Positive well nourished and well developed General Appearance ED: well developed; Negative for pallor HEENT HEENT Narrative: Normocephalic atraumatic No tongue or lip swelling no oral lesions no airway edema or compromise; no secondary findings in the posterior pharynx to suggest infection Eyes PERRL and EOMs intact bilaterally Neck supple Neck Narrative: No nuchal rigidity or meningeal sign Resp normal respiratory effort and clear to auscultation bilaterally Cardio regular rate and regular rhythm Rate: other Other Details: Radial and carotid pulses are equal and symmetric Extremity normal to inspection Extremity Narrative: No asymmetric edema no pitting edema negative Homans' sign bilaterally Neuro oriented x3, CN's II-XII intact bilaterally and no sensory deficits noted Neuro Narrative: GCS of 15 Cranial nerves II through XII are grossly intact without focal neurologic deficit No pronator drift no dysmetria no truncal ataxia NIH stroke scale score of 0 Sensorium / Orientation: alert Motor Exam: strength 5/5 throughout Psych Mood & Affect: anxious Skin no rashes or lesions noted General Skin Exam: Negative for jaundice or pallor MDM MDM MDM Narrative Medical decision making narrative: Patient arrived to the ER with stable vitals. She has a past medical history of headaches. She states she was just at an outside hospital where she had complete workup for this with MRIs and testing. She also states that there has been no trauma since returning home and she denies any sick symptoms. Therefore my concern for a subarachnoid or subdural hemorrhage is low. I also of low concern for meningitis. Therefore I feel no need for imaging or laboratory study. The patient's previous ER chart was reviewed. The patient was treated with IV fluids as well as Reglan Benadryl morphine Imitrex and oral Valium. After receiving medications she reported complete resolution of her headache and her neurologic exam remained intact and normal. Therefore I feel no need for further workup or intervention and she is otherwise safe for discharge History & Record Review Discussion w/independent historian: Patient and Friend Additional record(s) reviewed:: Prior ED visit Discharge Plan Triage Chief Complaint: Headache ED Provider: Renato Hanley Dx/Rx/DC Orders Clinical Impression: Cephalgia, Hypertension, Anxiety, Fibromyalgia Instructions: ED Headache Unspecified Prescriptions: No Action cyclobenzaprine 10 mg tablet 10 mg PO HS aspirin [Adult Low Dose Aspirin] 81 mg tablet,delayed release (DR/EC) 81 mg PO QDAY lisinopril-hydrochlorothiazide 10-12.5 mg tablet 1 tab PO QDAY zolpidem 5 mg tablet 5 mg PO QHS PRN (Reason: sleep) amlodipine 2.5 mg tablet 2.5 mg PO QDAY estradiol [Darling] 0.1 mg/24 hr patch semiweekly 1 patch transdermal QWEEK escitalopram oxalate 10 mg tablet 10 mg PO QDAY magnesium 200 mg tablet 200 mg PO QDAY oxycodone-acetaminophen 5-325 mg tablet 0.5 - 1 tab PO TID PRN (Reason: pain) fluticasone propionate 50 mcg/actuation spray,suspension 2 spray intranasal QDAY atorvastatin 40 MG tablet 40 mg PO QHS meloxicam 15 mg tablet 15 mg PO DAILY omeprazole 20 mg capsule,delayed release(DR/EC) 20 mg PO DAILY potassium chloride 10 mEq tablet extended release 10 meq PO DAILY trazodone 100 mg tablet 100 mg PO QHS gabapentin 100 mg capsule 100 mg PO DAILY bupropion HCl 150 mg tablet extended release 24 hr 150 mg PO DAILY prednisolone acetate 1 % drops,suspension 1 drp LEFT EYE 4X/DAY triamcinolone acetonide 0.025 % cream topical BID timolol maleate 0.5 % drops 1 drp LEFT EYE BID clopidogrel [Plavix] 75 mg tablet 75 mg PO DAILY Qty: 30 0RF progesterone micronized 100 mg capsule 100 mg PO QHS cholecalciferol (vitamin D3) [Vitamin D3] 50 mcg (2,000 unit) capsule 50 mcg PO DAILY cevimeline 30 mg capsule 1 cap PO DAILY Lacto no.25-Qygqkz-HRG-larch 25B cell-25B cell-50 mg capsule 1 cap PO DAILY Primary Care Provider: Ifeoma Mustafa Referrals: Ifeoma Mustafa MD [Primary Care Provider, Internal Medicine] Print Language: Liberian Disposition Disposition: Home, Self Care Discharge Date/Time: 07/10/25 17:19
[2025-07-10 17:18] VITALS: BP 112/57; PULSE 79; RESP 18; TEMP 36.7; O2SAT 100
== END 2025-07-10 17:19 | disposition home or self-care (01) ==
PROVIDERS: Emergency Provider Emergency Medicine; PCP Internal Medicine; Visit Provider Emergency Medicine
DX: R51.9 Headache, unspecified (principal); F41.9 Anxiety disorder, unspecified; M79.7 Fibromyalgia; I10 Essential (primary) hypertension; E78.00 Pure hypercholesterolemia, unspecified; Z82.49 Family history of ischemic heart disease and other diseases of the circulatory system; R11.0 Nausea; K21.9 Gastro-esophageal reflux disease without esophagitis; Z79.82 Long term (current) use of aspirin; H54.8 Legal blindness, as defined in USA; F32.A Depression, unspecified; Z79.899 Other long term (current) drug therapy
CPT/HCPCS: 96361; 96372; 96374; 96375; 99283; A4216; J3030

== ENCOUNTER 2025-07-25 14:47 | Emergency (ER) | payer MEDICARE, MEDICAID, SELFPAY ==
[2025-07-25 14:49] VITALS: BP 97/64; PULSE 95; RESP 18; TEMP 36.1; O2SAT 98; BMI 30.1
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
--- OUTSIDE RECORDS SUMMARY | 2025-07-25 16:25 | XMS RPT_ITS | CCD ---
Author Organization [facility] CliniSymn Care Team Providers Care Drug Abuse Resistance Education Officer Name Role Phone Ifeoma Davis MD Primary Care Provider STALKER, WOLF Referring Unavailable SUSAN, IFEOMA Primary Care Unavailable STALKER, WOLF Referring Unavailable IFEOMA DAVIS Primary Care Unavailable STALKER, WOLF Referring Unavailable IFEOMA DAVIS Primary Care Unavailable Ifeoma Davis MD Primary Care Provider JONATHON EUGENE Admitting Unavailable JONATHON EUGENE Attending Unavailable IFEOMA DAVIS Primary Care Unavailable MASSIMO ROBERTS Admitting Unavailable MASSIOM ROBERTS Attending Unavailable IFEOMA DAVIS Primary Care Unavailable Dr. Ifeoma Davis Primary Care Provider Dr. Ifeoma Davis Referring Provider Dr. Phillip Pozo Attending Provider Dr. Edgar Beltran Attending Provider Ifeoma Davis MD Primary Care Provider Virginia Avalos PA-C Unavailable Older PACKING SUPERVISOR.WEB CONTENT SPECIALIST, David Unavailable Domitila Knapp PA-C Unavailable Dr. Ifeoma Davis MD Primary Care Provider Dr. Edgar Beltran MD Attending Provider NP. Allie Prakash Attending Provider NP. Allie Prakash Referring Provider Virginia Avalos PA-C Unavailable Domitila Knapp PA-C Unavailable THORPE, KIMBERLEY Referring Unavailable GANTA, IFEOMA Primary Care Unavailable Susan CORREIA, Dr. Dia Referring Provider [facility] DO, Dr. Fisher Attending Provider Susan CORREIA, Dr. Dia Primary Care Provider Susan CORREIA, Dr. Dia Referring Provider [facility] DO, Dr. Fisher Attending Provider Ruby CORREIA, Dr. Hernández Attending Provider Rakesh CORREIA, Dr. Rodriguez Attending Provider Susan CORREIA, Dr. Dia Primary Care Physician [facility] DO, Dr. Fisher Attending Physician Ruby CORREIA, Dr. Hernández Attending Physician Rakesh CORREIA, Dr. Rodriguez Attending Physician Rakesh CORREIA, Dr. Rodriguez Referring Provider Papi CORREIA, Dr. Zambrano Emergency Department Physician Papi CORREIA, Dr. Zambrano Attending Physician [facility] DO, Dr. Fisher Referring Provider Unglyudmila DO, Dr. Armstrong Attending Physician Wang DO, Dr. rAmstrong Emergency Department Physici an [facility], Dr. Galarza Emergency Departmen t Physician Andelisha DO, Dr. Gross Emergency Department Physic marla Nazta, Ifeoma Primary Care Unavailable Geovanni Sorto Attending Unavailabl e Ganta, Ifeoma Primary Care Unavailable Renato Hanley Attending Unavailable Ganta, Ifeoma Primary Care Unavailable Renato Hanley Attending Unavailable Ganta, Ifeoma Primary Care Unavailable Ganta, Ifeoma Referring Unavailable Michael Cameron Attending Unavailable Ganta, Ifeoma Primary Care Unavailable Edgar Beltran Attending Unavailable Patti Piña Attending Unavailable Ganta, Ifeoma Primary Care Unavailable BorrusoPhillip Attending Unavailable Ganta, Ifeoma Primary Care Unavailable Borruso, Phillip Admitting Unavailable Borruso, Phillip Referring Unavailable Ganta, Ifeoma Primary Care Unavailable Olinda, Allie Referring Unavailable [place], Allie Attending Unavailable Ganta, Ifeoma Primary Care Unavailable Turpin, Juan Manuel Attending Unavailable Ganta, Ifeoma Primary Care Unavailable Ganta, Ifeoma Referring Unavailable Cameron, Michael Attending Unavailable Ganta, Ifeoma Primary Care Unavailable Cameron, Michael Referring Unavailable Cameron, Michael Attending Unavailable Borruso, Phillip Attending Unavailable Borruso, Phillip Referring Unavailable Ganta, Ifeoma Primary Care Unavailable Ganta, Ifeoma Primary Care Unavailable Ganta, Ifeoma Referring Unavailable Ganta, Ifeoma Attending Unavailable Ganta, Ifeoma Primary Care Unavailable Ganta, Ifeoma Referring Unavailable Borruso, Phillip Attending Unavailable Ganta, Ifeoma Primary Care Unavailable Ruby, [place] Attending Unavailable Ganta, Ifeoma Primary Care Unavailable Ruby, [place] Attending Unavailable Ganta, Ifeoma Primary Care Unavailable Ruby, [place] Attending Unavailable Ganta, Ifeoma Primary Care Unavailable Ganta, Ifeoma Referring Unavailable Borruso, Phillip Attending Unavailable Ganta, Ifeoma Primary Care Unavailable Ganta, Ifeoma Referring Unavailable Borruso, Phillip Attending Unavailable Ganta, Ifeoma Primary Care Unavailable Ruby, Edgar Attending Unavailable GANTA, IFEOMA Referring Unavailable GANTA, IFEOMA Primary Care Unavailable GANTA, IFEOMA Primary Care Unavailable GANTA, IFEOMA Primary Care Unavailable JANET LOWERY Attending Unavailable ANKUR CURTIS Referring Unavaila DESTINEY Chaves Attending Unavailable GANTA, IFEOMA Primary Care Unavailable GANTA, IFEOMA Attending Unavailable GANTA, IFEOMA Primary Care Unavailable GANTA, IFEOMA Primary Care Unavailable GANTA, IFEOMA Primary Care Unavailable GANTA, IFEOMA Primary Care Unavailable GANTA, IFEOMA Attending Unavailable EDWIGE, STEPHENIE Referring Unavailable GANTA, IFEOMA Primary Care Unavailable GANTA, IFEOMA Primary Care Unavailable OLDER, DAVID Attending Unavailable GANTA, IFEOMA Primary Care Unavailable OLDER, DAVID Referring Unavailable GANTA, IFEOMA Primary Care Unavailable GANTA, IFEOMA Attending Unavailable GANTA, IFEOMA Primary Care Unavailable MICHELLE CHIN Attending Unavailable GANTA, IFEOMA Attending Unavailable GANTA, IFEOMA Primary Care Unavailable GANTA, IFEOMA Primary Care Unavailable EMILY CHAPARRO Referring Unavailable GANTA, IFEOMA Primary Care Unavailable EISENGART, ADRIANA A Attending Unavailabl e EISENGART, ADRIANA A Admitting Unavailabl e GANTA, IFEOMA Primary Care Unavailable DIAZ, TERESO S Attending Unavailable DIAZ, TERESO S Admitting Unavailable GANTA, IFEOMA Primary Care Unavailable DIAZ, TERESO S Referring Unavailable OKONAUDRA GAGE Attending Unavailable EDWIGE, STEPHENIE Attending Unavailable GANTA, IFEOMA Primary Care Unavailable SELF Referring Unavailable EDWIGE, STEPHENIE Referring Unavailable GANTA, IFEOMA Primary Care Unavailable CALLI DUVALL Attending Unavailable GANTA, IFEOMA Primary Care Unavailable GANTA, IFEOMA Primary Care Unavailable GANTA, IFEOMA Attending Unavailable GANTA, IFEOMA Primary Care Unavailable EISENGART, ADRIANA A Attending Unavailabl e GANTA, IFEOMA Primary Care Unavailable AISLINN REYES Attending Unavailable GANTA, IFEOMA Primary Care Unavailable PAPARIZOSCYNTHIA Attending Unavailable GANTA, IFEOMA Primary Care Unavailable GANTA, IFEOMA Attending Unavailable SELF Referring Unavailable GANTA, IFEOMA Primary Care Unavailable GANTA, IFEOMA Referring Unavailable GANTA, IFEOMA Primary Care Unavailable GANTA, IFEOMA Attending Unavailable SELF Referring Unavailable GANTA, IFEOMA Primary Care Unavailable GANTA, IFEOMA Attending Unavailable GANTA, IFEOMA Primary Care Unavailable PAPARIZOSCYNTHIA Attending Unavailable SELF Referring Unavailable HELDER, DESTINEY Referring Unavailable GANTA, IFEOMA Primary Care Unavailable GANTA, IFEOMA Primary Care Unavailable BRII ALBERTS Attending Unavailable Ganta , Dr. Dia Primary Care Physician Dr. Ifeoma Davis MD Referring Provider Dr. Michael Cameron MD Attending Physician Dr. Edgar Beltran MD Attending Physician Dr. Michael Cameron MD Referring Provider Dr. Juan Manuel Turpin MD Attending Physician Dr. Juan Manuel Turpin MD Emergency Department Physician Dr. Phillip Pozo DO Attending Physician Dr. Phillip Pozo DO Referring Provider Dr. Patti Piña DO Attending Physician Dr. Patti Piña DO Emergency Department Physici an EdeTaz BENNETT, Dr. Galarza Attending Physician Noreen BENNETT, Dr. Galarza Emergency Departmen t Physician Talon BENNETT, Dr. Gross Attending Physician Dr. Renato Hanley DO Emergency Department Physic marla Allergies Allergy Classification Reported Allergen(s) Allergy Type Date of Onset Reaction(s) Facility Acetaminophen / HYDROcodone (1 source) Acetaminophen / HYDROcodone Drug Allergy 04-28-[address] [facility] Nitrofurantoin (1 source) Nitrofurantoin Drug Allergy 03-05-20 20 Other: See Comments [facility] Opioid Agonists (4 sources) HYDROcodone Drug Allergy 03-12-20 06 Itching, Other: See Comments, Vomiting [facility] (20 sources) Acetaminophen / HYDROcodone; Translations: [HYDROCODONE-ACETA MINOPHEN] Drug Allergy 04-28-[address] [facility] Work Phone: (20 sources) HYDROcodone; Translations: [HYDROCODONE BITARTRATE] Drug Allergy 10-19-[address] [facility] (20 sources) Morphinan opioid; Translations: [OPIOIDS - MORPHINE ANALOGUES] Drug Allergy 03-05-[address] [facility] (20 sources) Nitrofurantoin; Translations: [NITROFURANTOIN] Drug Allergy 03-05-20 20 Other: See Comments [facility] (20 sources) Propoxyphene; Translations: [PROPOXYPHENE] Drug Allergy 03-05-20 20 Other: See Comments [facility] (20 sources) traMADol; Translations: [TRAMADOL] Drug Allergy 03-05-20 Other: See Comments [facility] (20 sources) traMADol; Translations: [TRAMADOL HCL] Drug Allergy 03-12-[address] [facility] (20 sources) Propoxyphene N-Acetaminophen; Translations: [PROPOXYPHENE N-ACETAMINOPHEN] Drug Intolerance 04-28-[address] [facility] Work Phone: (16 sources) nitrofurantoin macrocrystalline; Translations: [nitrofurantoin macrocrystalline] Propensity to adverse reactions 11-21-19 22 Other [facility] (1 source) HYDROcodone Drug Allergy 07-10-20 [facility] Repository (1 source) Nitrofurantoin Drug Allergy 07-10-20 [facility] Repository (1 source) Propoxyphene Drug Allergy 07-10-20 [facility] Repository (1 source) traMADol Drug Allergy 07-10-20 [facility] Repository Medications Current Medications Medication Drug [...] Comment on above: Take 1 capsule by [facility] three times daily as needed for cough. Biotin / Calcium Carbonate (20 sources) biotin/calcium c arbonate (BIOTIN-CALCIUM ORAL) Take by mouth. Active biotin/calcium c arbonate (BIOTIN-CALCIUM ORAL) Take by mouth. 0 Suspended biotin/calcium c arbonate (BIOTIN-CALCIUM ORAL) Take by mouth. 0 Active Comment on above: Take by mouth. 24 hr buPROPion hydrochlorid e 150 mg extended release oral tablet (20 sources) Aminoketone Start: 06-17-2025 take 1 tablet by mouth once daily Start: 04-22-2025 take 1 tablet by porfirio once daily buPROPion XL (WELLBUTRIN XL) 150 mg 24 hr tablet Take 1 tablet by mouth once daily. 30 tablet 1 04/22/2025 Active Start: 09-29-2024 End: 06-17-2025 take 1 tablet by mouth once daily in the morning Bupropion Hcl 100 mg tablet sustained-release 12 hr Discontinued 100 mg PO EVERY MORNING December 08, 2024 11:00pm June 17, 2025 4:59pm DEPRESSION cephalexin 500 mg oral capsule (6 [...] on above: Take 1 capsule by mo [facility] twice daily for 7 days. cevimeline [...] 11/03/2025 Active cholecalciferol 0.05 mg oral capsule (2 sources) Vitamin D Start: 06-11-2025 take 1 capsule by mouth once daily clopidogrel 75 mg oral tablet (2 sources) P2Y12 Platelet Inhibitor Start: 06-17-2025 take 1 tablet by mouth once daily Collagen (20 sources) COLLAGEN MISC Active cyanocobalamin, [...] 10 mg PO Q8H October 29, 2017 12:00am June 04, 2025 10:08am Comment on above: Take 1 tablet by [...] by mouth once daily 84 hr estradiol 0.84252 mg/hr transdermal system (20 sources) Estrogen Start: [...] Start: 09-08-2024 take 2 spray(s) by m out once daily fluticasone (FLONASE) 50 mcg/actuation [...] tablet Discontinued 1 NMA PO DAILY January 16, 2017 11:00pm December 09, 2024 12:36pm Start: 01-17-2017 Lisinopril-Hyd rochlorothiazide Active 1 EACH [...] Comment on above: Take by mouth. Lacto No.52-Qwltls-Kqs-Larch 25B cell-25B cell-50 mg capsule (2 sources) Start: 06-11-2025 take 1 capsule by mo [facility] once daily Start: 06-11-2025 take 1 capsule by mouth once d aily Magnesium (20 sources) Start: 12-09-2024 take 1 tablet by mouth once da olive Start: 12-09-2024 take 1 tablet by porfirio [...] take 1 tablet by mouth once daily Comment on above: Take 1 tablet by [...] take 1 capsule by mouth once daily Comment on above: Take 1 capsule by [facility] once daily. prednisoLONE acetate 10 mg/m l [...] by mouth once daily. Active Timolol Maleate (20 sources) beta-Adrenergic Agustin Start: 06-17-2025 Start: 06-17-2025 Start: 03-23-2025 End: 03-25-2025 timolol maleate (TIMOPTIC) 0 .5 % ophthalmic solution Use 1 drop in the left eye two times a day. 10 mL 03/23/2025 03/25/2025 Discontinued Start: 12-07-2015 End: 11-06-2023 Timolol Maleate 1 DROP drops Discontinued 1 NMA EACH EYE TWICE A DAY December 06, 2015 11:00pm November 06, 2023 2:47pm Start: 12-07-2015 End: 11-06-2023 Timolol Maleate Discontinued 1 DRP EACH EYE TWICE A DAY December 07, 2015 12:00am November 06, 2023 3:47pm traZODone hydrochloride 100 mg oral tablet (20 sources) Serotonin Reuptake Inhibitor Start: 03-31-2025 End: 09-27-2025 take 1 tablet by mouth at bedtime Start: 09-29-2024 End: 03-28-2025 take 1 tablet [...] as needed for insomnia October 20, 2018 12:00am June 17, 2025 4:58pm Comment on above: Take 1 tablet by porfirio th daily at bedtime. triamcinolone acetonide 0.25 mg/ml topical cream (11 sources) Corticosteroid Start: 06-17-2025 Start: 04-22-2025 triamcinolone [...] / codeine phosphate 30 mg oral tablet (15 sources) Opioid Agonist Start: 10-19-2017 End: 10-29-2017 Acetaminophen-Codei ne 1 TABLET tablet Discontinued 1 - 2 {tbl} PO EVERY 6 HOURS as needed for Pain 12 October 19, 2017 12:00am October 29, 2017 1:15pm Start: 10-19-2017 End: 10-29-2017 take 1 tablet [...] tablet,chewable Discontinued 81 mg PO DAILY January 16, 2017 11:00pm December 09, 2024 12:35pm Start: 11-14-2015 Comment on above: Take 1 tablet by porfirio th once daily. bacitracin 0.5 unt/mg / polymyxin b 10 unt/mg ophthalmic ointment (20 sources) Polymyxin-class Antibacterial Start: 02-29-20 End: 08-16-20 22 bacitracin-polymyxin b (POLYSPORIN) ophthalmic ointment Use 1 [...] at bedtime. Collagenase powd (20 sources) End: 04-10-20 23 Collagenase powd Collagenase powd CPAP/BIPAP/OTHER (14 sources) Start: 12-17-2024 End: 03-24-2025 CPAP/BIPAP/OTHER Indications : DAYSI (obstructive sleep apnea) APAP 5-[address] [facility] 1 each 12/17/2024 03/24/2025 Discontinued Start: 12-17-2024 End: 05-03-2052 CPAP/BIPAP/OTHER Indications : DAYSI (obstructive sleep apnea) APAP 5-[address] [facility] 1 each 12/17/2024 05/03/2052 Active cyclopentolate [...] extended release oral tablet (20 sources) Uncompetitive Y-mrzhwd-G-asparta te Receptor Antagonist, Sigma-1 Agonist Start: 08-30-2023 [...] 14 capsule 04/11/2024 12/29/2024 Discontinued Estrogens, Conjugated (INTERMEDIATE) / medroxyPROGESTERone (20 sources) Progestin, Estrogen Start: [...] / norethindrone acetate 1 mg oral tablet (15 sources) Estrogen Start: 10-19-2017 End: 12-09-2024 Norethindrone Ac-Eth Estradiol 1 EACH tablet Discontinued 1 NMA PO DAILY October 19, 2017 12:00am December 09, 2024 12:38pm Start: 10-19-2017 Norethindrone Ac-Eth Estradiol Active 1 EACH PO DAILY October 19, 2017 1:00am folic acid 0.4 mg / vitamin b12 0.5 mg oral tablet (12 sources) Vitamin B12 Start: 12-09-2024 End: 06-11-2025 Vitamin A87-Xlqrf Acid 500-400 mcg tablet Discontinued 1 {tbl} PO daily December 08, 2024 11:00pm June 11, 2025 12:32pm administer with a meal gabapentin 100 mg oral capsule (20 sources) Anti-epileptic Agent Start: 05-11-2022 End: 06-28-2025 take 1 capsule by mouth at bedtime Gabapentin 100 mg capsule Discontinued 100 mg PO AT BEDTIME March 09, 2025 11:00pm June 11, 2025 12:27pm Start: 09-18-2021 End: 03-18-2022 take 1 capsule by mouth once daily at bedtime gabapentin (NEURONTIN) 100 mg capsule Take 1 capsule by mouth daily at bedtime for 181 days. 60 capsule 2 09/18/2021 12/04/2021 Discontinued Comment on above: Take 1 capsule by mo [facility] daily at bedtime for 181 days. ibuprofen 800 mg oral tablet (20 sources) Nonsteroidal Anti-inflammatory Drug Start: 08-30-20 End: 03-24-20 take 1 tablet by mouth every eight hours as needed ibuprofen (MOTRIN) 800 mg tablet Take 1 tablet by mouth every 8 hours as needed for pain. Take with food. 30 tablet 08/30/2023 03/24/2025 Discontinued Comment on above: Take 1 tablet by porfirio every 8 hours as needed for pain. [...] Comment on above: Take 1 tablet by [facility] once daily. meclizine hydrochloride 25 mg oral tablet (15 sources) Antiemetic Start: 11-21-19 22 End: 11-06-19 24 take 1 tablet by mouth three times daily as needed Meclizine 25 mg tablet Discontinued 25 mg PO THREE TIMES A DAY as needed for vertigo 20 0 November 19, 2021 11:00pm November 06, 2023 2:46pm mometasone furoate 0.05 mg/actuat metered dose nasal spray (20 sources) Corticosteroid Start: 08-13-20 End: 03-24-20 25 take 2 spray(s) by mouth once daily [...] day for 7 (seven) days, then STOP Hk-5-Hmd-Epa-Fish Oil-Vit D3 720 mg- 25 mcg capsule (12 sources) Start: 12-09-2024 End: 06-11-2025 Tw-3-Ezc-Epa-Fish Oil-Vit D3 720 mg- 25 mcg capsule Discontinued NMA PO December 08, 2024 11:00pm June 11, 2025 12:31pm Start: 12-09-2024 End: 06-11-2025 Fn-3-Cwk-Epa-Fish Oil-Vit D3 720 mg- 25 mcg capsule Discontinued NMA PO December 09, 2024 12:00am June 11, 2025 1:31pm Start: 12-09-2024 Ck-5-Keb-Epa-F elvia Oil-Vit D3 720 mg- 25 mcg capsule Active NMA PO December 09, 2024 12:00am Complies with drug therapy Start: 12-09-2024 Start: 12-09-2024 Vm-0-Wgp-Epa-F elvia Oil-Vit D3 720 mg- 25 mcg [...] % 1 Drop (AK-DILATE, BENEDICT-SYNEPHRINE) polymyxin b 24953 unt/ml / trimethoprim 1 mg/ml ophthalmic solution [...] release Discontinued 10 meq PO daily December 08, 2024 11:00pm March 10, 2025 1:39pm [facility] [place] (4 sources) Start: 06-04-2025 End: 06-11-2025 take 1 capsule by mouth twice daily [facility] [place] 450 mg capsule Discontinued 450 mg PO TWICE A DAY June 03, 2025 11:00pm June 11, 2025 12:32pm Start: 06-04-2025 End: 06-11-2025 take 1 capsule by mouth twice daily [facility] [place] 450 mg capsule Discontinued 450 mg PO TWICE A DAY June 04, 2025 12:00am June 11, 2025 1:32pm Start: 06-04-2025 take 1 capsule by mo [facility] twice daily tropicamide 10 mg/ml ophthalmic solution [...] [Essential (primary) hypertension] Onset: 11-11-2014 12-14-2014 Chronic Fluid and electrolyte disorders (5 sources) Hypokalemia; Translations: [Hypokalemia] Onset: 07-06-2025 11-20-2024 Episodic Genitourinary symptoms and ill-defined conditions (1 source) Dysuria; Translations: [Dysuria] 10-31-2024 Episodic Glaucoma (20 sources) Secondary glaucoma ; 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, bilateral, indeterminate stage] Onset: 12-29-2019 Resolved: 12-29-2022 12-29-2019 Chronic Headache; including migraine (2 sources) New daily persistent headache; Translations: [New daily persistent headache (NDPH)] Onset: 07-01-2025 Chronic Headache; including migraine (11 sources) Chronic mixed headache syndrome; Translations: [Other headache syndrome] Episodic Headache; including migraine (3 sources) Headache; including migraine; Translations: [Headache, unspecified] Onset: 07-05-2025 Inflammation; infection of eye (except that caused by tuberculosis or sexually transmitteddisease) (15 sources) Blepharitis; Translations: [Unspecified blepharitis right eye, unspecified eyelid] 03-20-2021 Episodic Intracranial injury (8 sources) Concussion with no loss of consciousness; Translations: [Concussion without loss of consciousness, initial encounter] Onset: 06-01-2025 05-27-2025 Episodic Malaise and fatigue (7 sources) Fatigue; Translations: [Other fatigue] Onset: 11-03-2024 [...] Onset: 06-04-2025 03-10-2025 Chronic Other acquired deformities (20 sources) Degenerative disorder of musculoskeletal system; Translations: [Other secondary scoliosis, site unspecified] 04-16-2025 Chronic Other acquired deformities (1 source) Other secondary scoliosis, site unspecified; Translations: [Other secondary scoliosis, site unspecified] Onset: 06-04-2025 Chronic Other acquired deformities (20 sources) Spondylolisthesis; Translations: [Spondylolisthesis, site unspecified] 04-16-2025 [...] Onset: 06-30-2025 Episodic Other aftercare (1 source) 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/antip latelets; Translations: [Encounter [...] Onset: 11-07-2022 Episodic Other connective tissue disease (15 sources) Inflammation of rotator cuff tendon; Translations: [Other shoulder lesions, unspecified shoulder] 12-18-2023 Episodic Other connective tissue disease (20 sources) Trochanteric bursitis; Translations: [Trochanteric bursitis, left hip] 12-09-2024 Episodic Other connective tissue disease (2 sources) Fibromyalgia; Translations: [Fibromyalgia] 07-12-2025 Episodic Other disorders of stomach and duodenum [...] 04-30-2023 Episodic Other inflammatory condition of skin (15 sources) Pruritic rash; Translations: [Other pruritus] 03-20-2021 Episodic Other inflammatory condition of skin (2 sources) Intertrigo; Translations: [Erythema intertrigo] 04-22-2025 Episodic Other inflammatory condition of skin (1 source) Erythema intertrigo; Translations: [Intertrigo] Onset: 04-22-2025 Episodic Other injuries and conditions due to external causes (14 sources) Injury of right rotator cuff; Translations: [...] skin] 04-25-2023 Episodic Other non-traumatic joint disorders (14 sources) Pain in right shoulder; Translations: [Right [...] sinusitis; Translations: [Chronic sinusitis, unspecified] 11-18-2023 Chronic Kathleen-; endo-; and myocarditis; cardiomyopathy (except that [...] movement disorder] 10-08-2024 Chronic Residual codes; unclassified (12 sources) Sleep apnea; Translations: [Sleep apnea, unspecified] [...] sources) Obstructive sleep apnea (adult) (pediatric); Translations: [Obstructive sleep apnea (adult) (pediatric)] Onset: 08-21-2024 Chronic Residual codes; unclassified (2 sources) Memory impairment; Translations: [Other amnesia] Episodic Residual codes; unclassified (3 sources) Difficulty with household tasks; Translations: [Other general symptoms and signs] Episodic Residual codes; unclassified (3 sources) Difficulty reading; Translations: [Other general symptoms and signs] Episodic Residual codes; unclassified (1 source) Flushing; Translations: [Flushing] Episodic Residual codes; unclassified (6 sources) Insomnia; Translations: [Insomnia, unspecified] 09-29-2024 Episodic Retinal detachments; defects; vascular occlusion; and retinopathy (20 sources) Degenerative disorder of macula ; Translations: [Unspecified macular degeneration] Onset: 11-11-2014 08-28-2021 Chronic Spondylosis; intervertebral disc disorders; other back problems (19 sources) Lumbar spondylosis; Translations: [Spondylosis without myelopathy [...] site not specified] 10-31-2024 Episodic Viral infection (15 sources) Disease caused by 2019-nCoV; Translations: [COVID-19] [...] not elsewhere classified] Onset: 03-23-2025 03-23-2025 Episodic Immunizations and screening for infectious disease [...] in left hip] Onset: 03-10-2025 Episodic Other upper respiratory infections (2 sources) Viral upper respiratory tract infection; Translations: [Acute upper respiratory infection, unspecified] Onset: 04-11-2025 04-11-2025 Episodic Results Test Name Value Interpretation Reference Range Facility CNCNPATEDon 07-13-2025 CNCNPATED Normal [facility] CNOVon 07-13-2025 CNOV Normal [facility] CRP SerPl-mCncon 07-13-2025 CRP [Mass/Vol] mg/L Normal <0.9 [facility] Comment on above: Order Comment: Speci men Type: BLOOD SPECIMENOrdering Facility: [facility] Address: [address] [place] [address] Performed By: #### 1 [id number] ####[facility] LABCLIA [id number] [place] [address] [place] Emergency Department Summary on 07-10-2025 Emergency Department Summary [facility] Medical Records Department [address] [place] [address] Emergency Department Summary 07/10/25 MR#: [id number] Acct: [id number] Name: ALLIE LYNN Rep #: [id number] : 1970 55 From: Renato Hanley DO PCP: Dr. Ifeoma Davis MD Status:DEP ER Location: ED HPI History of Present Illness Chief Complaint: Headache Informant: patient and friend Narrative Narrative: Patient is a 55-year-old female with past medical history of hypertension anxiety and fibromyalgia. She states she was recently at the [facility] where she had an MRI of her brain and neck concerning for potential carotid obstruction or tear. She states that at the [facility] she had MRIs which confirmed no acute bleed or mass. She states she was treated with IV fluids and magnesium and Tylenol secondary to her recurrent headache. Patient states that since returning home headache has persisted. She denies any trauma since returning home she denies any fevers or chills or concern for illness. She states that she is been at this hospital previously for headache and that the last time she was here the medication did resolve the headache and therefore she presents at this time for symptom improvement [facility] Medical History (Updated 07/12/25 @ 00:[address] Renato Hanley DO) PXE (pseudoxanthoma elasticum) Wears glasses Depression [...] SUPPLMENT 06/11/25 Unknown History cell-Bifido 25 billion xcac-RIZ-anqhe capsule cevimeline 30 mg capsule 1 cap [...] Time hydrocodone bitartrate (From AdvReac Itching Verified 07/10/25 14:53 Vicodin) nitrofurantoin (From AdvReac Other Verified 07/10/25 14:53 Macrobid) nitrofurantoin [facility] Other Verified 07/10/25 14:53 macrocrystalline (From Macrobid) propoxyphene (From AdvReac Other Verified 07/10/25 14:53 Darvocet-N) tramadol HCl (From Ultram) [facility] Other Verified 07/10/25 14:53 Family History Father Lung cancer Mother COPD (chronic obstruct (more content not included)... Normal [facility] CNPNon 07-08-2025 CNPN Normal [facility] CNPNon 07-07-2025 CNPN Normal [facility] CNOVon 07-06-2025 CNOV Normal [facility] CNPTOUTREACHon 07-06-2025 CNPTOUTREACH Normal [facility] ALLIED HEALTHon 07-05-2025 ALLIED HEALTH Normal [facility] CBC W Auto Differential pane l (Bld)on 07-05-2025 Basophils (Bld) [#/Vol] 10*3/uL Normal <0.11 [facility] on above: Order Comment: Speci men Type: BLOOD SPECIMENOrdering Facility: [facility] Address: [address] [place] [address] Performed By: #### 5 7021-8 ####[facility] LABCLIA [id number] [place] [address] [place] Basophils/100 WBC (Bld) 0.1 % Normal [facility] Comment on above: Order Comment: Speci men Type: BLOOD SPECIMENOrdering Facility: [facility] Address: [address] [place] [address] Performed By: #### 5 7021-8 ####[facility] LABCLIA [id number] [place] [address] [place] Differential cell count method Nom (Bld) Auto Normal [facility] Comment on above: Order Comment: Speci men Type: BLOOD SPECIMENOrdering Facility: [facility] Address: [address] [place] [address] Performed By: #### 5 7021-8 ####[facility] LABCLIA [id number] [place] [address] [place] Eosinophils (Bld) [#/Vol] 10*3/uL Normal <0.46 [facility] Comment on above: Order Comment: Speci men Type: BLOOD SPECIMENOrdering Facility: [facility] Address: [address] [place] [address] Performed By: #### 5 7021-8 ####[facility] LABCLIA [id number] [place] [address] [place] Eosinophils/100 WBC (Bld) 0.0 % Normal [facility] Comment on above: Order Comment: Speci men Type: BLOOD SPECIMENOrdering Facility: [facility] Address: [address] [place] [address] Performed By: #### 5 7021-8 ####[facility] LABCLIA [id number] [place] [address] [place] Erythrocyte distribution width (RBC) [Ratio] 13.2 % Normal 11.5-15.0 [facility] Comment on above: Order Comment: Speci men Type: BLOOD SPECIMENOrdering Facility: [facility] Address: [address] [place] [address] Performed By: #### 5 7021-8 ####[facility] LABCLIA [id number] [place] [address] [place] Hematocrit (Bld) [Volume fraction] 37.7 % Normal 36.0-46.0 [facility] Comment on above: Order Comment: Speci men Type: BLOOD SPECIMENOrdering Facility: [facility] Address: [address] [place] [address] Performed By: #### 5 7021-8 ####[facility] LABCLIA [id number] [place] [address] [place] Hemoglobin (Bld) [Mass/Vol] 12.7 g/dL Normal 11.5-15.5 [facility] Comment on above: Order Comment: Speci men Type: BLOOD SPECIMENOrdering Facility: [facility] Address: [address] [place] [address] Performed By: #### 5 7021-8 ####[facility] LABCLIA [id number] [place] [address] [place] Immature granulocytes (Bld) [#/Vol] 0.03 10*3/uL Normal <0.10 [facility] Comment on above: Order Comment: Speci men Type: BLOOD SPECIMENOrdering Facility: [facility] Address: [address] [place] [address] Performed By: #### 5 7021-8 ####[facility] LABCLIA [id number] [place] [address] [place] Immature granulocytes/100 WBC (Bld) 0.4 % Normal [facility] Comment on above: Order Comment: Speci men Type: BLOOD SPECIMENOrdering Facility: [facility] Address: [address] [place] [address] Performed By: #### 5 7021-8 ####[facility] LABCLIA [id number] [place] [address] [place] Lymphocytes (Bld) [#/Vol] 0.48 10*3/uL Low 1.00-4.00 [facility] Comment on above: Order Comment: Speci men Type: BLOOD SPECIMENOrdering Facility: [facility] Address: [address] [place] [address] Performed By: #### 5 7021-8 ####[facility] LABCLIA [id number] [place] [address] [place] Lymphocytes/100 WBC (Bld) 5.6 % Normal [facility] Comment on above: Order Comment: Speci men Type: BLOOD SPECIMENOrdering Facility: [facility] Address: [address] [place] [address] Performed By: #### 5 7021-8 ####[facility] LABCLIA [id number] [place] [address] [place] MCH (RBC) [Entitic mass] 30.1 pg Normal 26.0-34.0 [facility] Comment on above: Order Comment: Speci men Type: BLOOD SPECIMENOrdering Facility: [facility] Address: [address] [place] [address] Performed By: #### 5 7021-8 ####[facility] LABIA [id number] [place] [address] [place] MCHC (RBC) [Mass/Vol] 33.7 g/dL Normal 30.5-36.0 [facility] Comment on above: Order Comment: Speci men Type: BLOOD SPECIMENOrdering Facility: [facility] Address: [address] [place] [address] Performed By: #### 5 7021-8 ####[facility] LABIA [id number] [place] [address] [place] MCV (RBC) [Entitic vol] 89.3 fL Normal 80.0-100.0 C [facility] Comment on above: Order Comment: Speci men Type: BLOOD SPECIMENOrdering Facility: [facility] Address: [address] [place] [address] Performed By: #### 5 7021-8 ####[facility] LABCLIA [id number] [place] [address] [place] Monocytes (Bld) [#/Vol] 0.14 10*3/uL Normal <0.87 [facility] Comment on above: Order Comment: Speci men Type: BLOOD SPECIMENOrdering Facility: [facility] Address: [address] [place] [address] Performed By: #### 5 7021-8 ####[facility] LABCLIA [id number] [place] [address] [place] Monocytes/100 WBC (Bld) 1.6 % Normal [facility] Comment on above: Order Comment: Speci men Type: BLOOD SPECIMENOrdering Facility: [facility] Address: [address] [place] [address] Performed By: #### 5 7021-8 ####[facility] LABCLIA [id number] [place] [address] [place] Neutrophils (Bld) [#/Vol] 7.85 10*3/uL High 1.45-7.50 [facility] Comment on above: Order Comment: Speci men Type: BLOOD SPECIMENOrdering Facility: [facility] Address: [address] [place] [address] Performed By: #### 5 7021-8 ####[facility] LABCLIA [id number] [place] [address] [place] Neutrophils/100 WBC (Bld) 92.3 % Normal [facility] Comment on above: Order Comment: Speci men Type: BLOOD SPECIMENOrdering Facility: [facility] Address: [address] [place] [address] Performed By: #### 5 7021-8 ####[facility] LABCLIA [id number] [place] [address] [place] Nucleated RBC (Bld) [#/Vol] 10*3/uL Normal <0.01 [facility] Comment on above: Order Comment: Speci men Type: BLOOD SPECIMENOrdering Facility: [facility] Address: [address] [place] [address] Performed By: #### 5 7021-8 ####[facility] LABCLIA [id number] [place] [address] [place] Nucleated RBC/100 WBC (Bld) [Ratio] 0.0 /100 WBC Normal [facility] Comment on above: Order Comment: Speci men Type: BLOOD SPECIMENOrdering Facility: [facility] Address: [address] [place] [address] Performed By: #### 5 7021-8 ####[facility] LABCLIA [id number] [place] [address] [place] Platelet mean volume (Bld) [Entitic vol] 10.4 fL Normal 9.0-12.7 [facility] Comment on above: Order Comment: Speci men Type: BLOOD SPECIMENOrdering Facility: [facility] Address: [address] [place] [address] Performed By: #### 5 7021-8 ####[facility] LABCLIA [id number] [place] [address] [place] Platelets (Bld) [#/Vol] 314 10*3/uL Normal 150-400 [facility] Comment on above: Order Comment: Speci men Type: BLOOD SPECIMENOrdering Facility: [facility] Address: [address] [place] [address] Performed By: #### 5 7021-8 ####[facility] LABCLIA [id number] [place] [address] [place] RBC (Bld) [#/Vol] 4.22 10*6/uL Normal 3.90-5.20 [facility] Comment on above: Order Comment: Speci men Type: BLOOD SPECIMENOrdering Facility: [facility] Address: [address] [place] [address] Performed By: #### 5 7021-8 ####[facility] LABCLIA [id number] [place] [address] [place] WBC (Bld) [#/Vol] 8.51 10*3/uL Normal 3.70-11.00 [facility] Comment on above: Order Comment: Speci men Type: BLOOD SPECIMENOrdering Facility: [facility] Address: [address] [place] [address] Performed By: #### 5 7021-8 ####[facility] LABCLIA [id number] [place] [address] [place] CNPNon 11-03-2025 CNPN Normal [facility] CONSULTon 07-05-2025 CONSULT Normal [facility] CT BRAIN WO IVCONon 07-05-[address] BRAIN WO IVCON Normal [facility] Comprehensive metabolic 2000 panelon 07-05-2025 Albumin [Mass/Vol] 4.5 g/dL Normal 3.9-4.9 [facility] Comment on above: Order Comment: Speci men Type: BLOOD SPECIMENOrdering Facility: [facility] Address: [address] [place] [address] Performed By: #### 2 4323-8, [id number] ####[facility] LABCLIA [id number] [place] [address] [place] ALP [Catalytic activity/Vol] 116 U/L Normal 34-123 [facility] Comment on above: Order Comment: Speci men Type: BLOOD SPECIMENOrdering Facility: [facility] Address: [address] [place] [address] Performed By: #### 2 4323-8, [id number] ####[facility] LABCLIA [id number] [place] [address] [place] ALT [Catalytic activity/Vol] 18 U/L Normal 7-38 [facility] Comment on above: Order Comment: Speci men Type: BLOOD SPECIMENOrdering Facility: [facility] Address: [address] [place] [address] Performed By: #### 2 4323-8, [id number] ####[facility] LABCLIA [id number] [place] [address] [place] Anion gap [Moles/Vol] 13 mmol/L Normal 8-15 [facility] Comment on above: Order Comment: Speci men Type: BLOOD SPECIMENOrdering Facility: [facility] Address: [address] [place] [address] Performed By: #### 2 4323-8, [id number] ####[facility] LABCLIA [id number] [place] [address] [place] AST [Catalytic activity/Vol] 18 U/L Normal 13-35 [facility] Comment on above: Order Comment: Speci men Type: BLOOD SPECIMENOrdering Facility: [facility] Address: [address] [place] [address] Performed By: #### 2 4323-8, [id number] ####[facility] LABCLIA [id number] [place] [address] [place] Bilirubin [Mass/Vol] 0.2 mg/dL Normal 0.2-1.3 [facility] Comment on above: Order Comment: Speci men Type: BLOOD SPECIMENOrdering Facility: [facility] Address: [address] [place] [address] Performed By: #### 2 4323-8, [id number] ####[facility] LABCLIA [id number] [place] [address] [place] Calcium [Mass/Vol] 9.7 mg/dL Normal 8.5-10.2 [facility] Comment on above: Order Comment: Speci men Type: BLOOD SPECIMENOrdering Facility: [facility] Address: [address] [place] [address] Performed By: #### 2 4323-8, [id number] ####[facility] LABCLIA [id number] [place] [address] [place] Chloride [Moles/Vol] 101 mmol/L Normal 98-107 [facility] Comment on above: Order Comment: Speci men Type: BLOOD SPECIMENOrdering Facility: [facility] Address: [address] [place] [address] Performed By: #### 2 4323-8, [id number] ####[facility] LABCLIA [id number] [place] [address] [place] CO2 [Moles/Vol] 26 mmol/L Normal 22-30 [facility] Comment on above: Order Comment: Speci men Type: BLOOD SPECIMENOrdering Facility: [facility] Address: [address] [place] [address] Performed By: #### 2 4323-8, [id number] ####[facility] LABCLIA [id number] [place] [id number] [place] Creatinine [Mass/Vol] 1.01 mg/dL High 0.58-0.96 [facility] Comment on above: Order Comment: Speci men Type: BLOOD SPECIMENOrdering Facility: [facility] Address: [address] [place] [address] Performed By: #### 2 4323-8, [id number] ####[facility] LABCLIA [id number] [place] [address] [place] eGFRcr SerPlBld CKD-EPI 2020 65 mL/min/1.73m??? Normal >=60 [facility] Comment on above: Order Comment: Altafi men Type: BLOOD SPECIMENOrdering Facility: [facility] Address: [address] [place] [address] Result Comment: Zaria mated Glomerular Filtration Rate [...] actual GFR. Performed By: #### 2 4323-8, [id number] ####[facility] LABCLIA [id number] [place] [address] [place] Glucose [Mass/Vol] 116 mg/dL High 74-99 [facility] Comment on above: Order Comment: Speci men Type: BLOOD SPECIMENOrdering Facility: [facility] Address: [address] [place] [address] Result Comment: The [place] [employer] (ADA) provides guidance for cutoff [...] Standards of Medical Care in Diabetes 2016, [place] [employer]. Diabetes Care. 2016.39(Suppl 1). Performed By: #### 2 4323-8, [id number] ####[facility] LABCLIA [id number] [place] [address] [place] Potassium [Moles/Vol] 4.1 mmol/L Normal 3.7-5.1 [facility] Comment on above: Order Comment: Speci men Type: BLOOD SPECIMENOrdering Facility: [facility] Address: [address] [place] [address] Performed By: #### 2 4323-8, [id number] ####[facility] LABCLIA [id number] [place] [address] [place] Protein [Mass/Vol] 7.4 g/dL Normal 6.3-8.0 [facility] Comment on above: Order Comment: Speci men Type: BLOOD SPECIMENOrdering Facility: [facility] Address: [address] [place] [address] Performed By: #### 2 4323-8, [id number] ####[facility] LABCLIA [id number] [place] [address] [place] Sodium [Moles/Vol] 140 mmol/L Normal 136-144 [facility] Comment on above: Order Comment: Speci men Type: BLOOD SPECIMENOrdering Facility: [facility] Address: [address] [place] [address] Performed By: #### 2 4323-8, [id number] ####[facility] LABCLIA [id number] [place] [address] [place] Urea nitrogen [Mass/Vol] 15 mg/dL Normal 7-21 [facility] Comment on above: Order Comment: Speci men Type: BLOOD SPECIMENOrdering Facility: [facility] Address: [address] [place] [address] Performed By: #### 2 4323-8, [id number] ####[facility] LABCLIA [id number] [place] [id number] [place] [id number] 07-05-2025 ECG01 Normal [facility] ED PROV NOTEon 07-05-2025 ED PROV NOTE Normal [facility] ED Triage Noteon 07-05-2025 ED Triage Note Normal [facility] HIGH SENSITIVITY TROPONIN T (INITIAL)on 07-05-2025 Troponin T.cardiac High sensitivity method [Mass/Vol] <6 Normal <12 [facility] Comment on above: Order Comment: Speci men Type: BLOOD SPECIMENOrdering Facility: [facility] Address: [address] [place] [address] Performed By: #### 2 4323-8, [id number] ####[facility] LABCLIA [id number] [place] [id number] [facility] HIGH SENSITIVITY TROPONIN T (SECOND)on 07-05-2025 Troponin T.cardiac High sensitivity method [Mass/Vol] <6 Normal <12 [facility] Comment on above: Order Comment: Speci men Type: BLOOD SPECIMENOrdering Facility: [facility] Address: [address] [place] [address] Performed By: #### L [id number] ####[facility] LABCLIA [id number] [place] [address] [place] PT panel Coag (PPP)on 2024 INR Coag (PPP) [Relative time] {INR} Low 0.9-1.3 [facility] Comment on above: Order Comment: Speci men Type: BLOOD SPECIMENOrdering Facility: [facility] Address: [address] [place] [address] Result Comment: Kelly min K Antagonist (VKA) Therapeutic Range: INR 2 to 3 (Target INR of 2.5)Note: For patients treated with VKA drugs, such as warfarin, the [place] [employer] 2012 Guideline recommends [...] of 3).Tabitha GH, et al. Chest 2012, 141:7S-47SNishmaranda RA, et al. [facility] 2017, 70: 252-289 Performed By: #### 3 4528-0, 81837-3 ####[facility] LABCLIA [id number] [place] [address] [place] PT Coag (PPP) [Time] 9.9 s Normal 9.7-13.0 [facility] Comment on above: Order Comment: Brandan eaton Type: BLOOD SPECIMENOrdering Facility: [facility] Address: [address] [place] [address] Performed By: #### 3 4528-0, 56648-9 ####[facility] LABCLIA [id number] [place] [address] [place] SEPSIS LACTATE W/ REFLEX (IN ITIAL)on 07-05-2025 Lactate [Moles/Vol] 1.9 mmol/L Normal <=2.0 [facility] Comment on above: Order Comment: Brandan eaton Type: BLOOD SPECIMENOrdering Facility: [facility] Address: [address] [place] [address] Performed By: #### S LACTR ####[facility] LABCLIA [id number] [place] [address] [place] XR CHEST 1V FRONTAL PORTon 1 09-04-2024 XR CHEST 1V FRONTAL PORT Normal [facility] aPTT PPPon 07-05-2025 aPTT Coag (PPP) [Time] 22.4 s Low 23.0-32.4 [facility] Comment on above: Order Comment: Speci men Type: BLOOD SPECIMENOrdering Facility: [facility] Address: [address] [place] [address] Result Comment: [facility] clot. Performed By: #### 3 4528-0, 00676-2 ####[facility] LABCLIA [id number] [place] [address] [place] CNPTOUTREACHon 07-02-2025 CNPTOUTREACH Normal [facility] CBC panel Auto (Bld)on 07-01 Erythrocyte distribution width (RBC) [Ratio] 13.1 % Normal 11.5-15.0 [facility] Comment on above: Order Comment: Speci men Type: BLOOD SPECIMENOrdering Facility: [facility] Address: [address] [place] [address] Performed By: #### 5 8410-2 ####[facility] LABCLIA [id number] [place] [address] [place] Hematocrit (Bld) [Volume fraction] 30.2 % Low 36.0-46.0 [facility] Comment on above: Order Comment: Speci men Type: BLOOD SPECIMENOrdering Facility: [facility] Address: [address] [place] [address] Performed By: #### 5 8410-2 ####[facility] LABCLIA [id number] [place] [address] [place] Hemoglobin (Bld) [Mass/Vol] 9.9 g/dL Low 11.5-15.5 [facility] Comment on above: Order Comment: Speci men Type: BLOOD SPECIMENOrdering Facility: [facility] Address: [address] [place] [address] Performed By: #### 5 8410-2 ####[facility] LABCLIA [id number] [place] [address] [place] MCH (RBC) [Entitic mass] 29.5 pg Normal 26.0-34.0 [facility] Comment on above: Order Comment: Speci men Type: BLOOD SPECIMENOrdering Facility: [facility] Address: [address] [place] [address] Performed By: #### 5 8410-2 ####[facility] LABCLIA [id number] [place] [address] [place] MCHC (RBC) [Mass/Vol] 32.8 g/dL Normal 30.5-36.0 [facility] Comment on above: Order Comment: Speci men Type: BLOOD SPECIMENOrdering Facility: [facility] Address: [address] [place] [address] Performed By: #### 5 8410-2 ####[facility] LABCLIA [id number] [place] [address] [place] MCV (RBC) [Entitic vol] 89.9 fL Normal 80.0-100.0 [facility] Comment on above: Order Comment: Speci men Type: BLOOD SPECIMENOrdering Facility: [facility] Address: [address] [place] [address] Performed By: #### 5 8410-2 ####[facility] LABCLIA [id number] [place] [address] [place] Nucleated RBC (Bld) [#/Vol] 10*3/uL Normal <0.01 [facility] Comment on above: Order Comment: Speci men Type: BLOOD SPECIMENOrdering Facility: [facility] Address: [address] [place] [address] Performed By: #### 5 8410-2 ####[facility] LABCLIA [id number] [place] [address] [place] Platelet mean volume (Bld) [Entitic vol] 10.6 fL Normal 9.0-12.7 [facility] Comment on above: Order Comment: Speci men Type: BLOOD SPECIMENOrdering Facility: [facility] Address: [address] [place] [address] Performed By: #### 5 8410-2 ####[facility] LABCLIA [id number] [place] [address] [place] Platelets (Bld) [#/Vol] 205 10*3/uL Normal 150-400 [facility] Comment on above: Order Comment: Speci men Type: BLOOD SPECIMENOrdering Facility: [facility] Address: [address] [place] [address] Performed By: #### 5 8410-2 ####[facility] LABCLIA [id number] [place] [id number] [place] RBC (Bld) [#/Vol] 3.36 10*6/uL Low 3.90-5.20 [facility] Comment on above: Order Comment: Speci men Type: BLOOD SPECIMENOrdering Facility: [facility] Address: [address] [place] [address] Performed By: #### 5 8410-2 ####[facility] LABCLIA [id number] [place] [address] [place] WBC (Bld) [#/Vol] 4.95 10*3/uL Normal 3.70-11.00 [facility] Comment on above: Order Comment: Speci men Type: BLOOD SPECIMENOrdering Facility: [facility] Address: [address] [place] [address] Performed By: #### 5 8410-2 ####[facility] LABCLIA [id number] [place] [address] [place] CNDSon 07-01-2025 CNDS Normal [facility] Comprehensive metabolic 2000 panelon 07-01-2025 Albumin [Mass/Vol] 3.5 g/dL Low 3.9-4.9 [facility] Comment on above: Order Comment: Speci men Type: BLOOD SPECIMENOrdering Facility: [facility] Address: [address] [place] [address] Performed By: #### 2 4323-8, 77062-5, 2777-1 ####[facility] LABCLIA [id number] [place] [address] [place] ALP [Catalytic activity/Vol] 98 U/L Normal 34-123 [facility] Comment on above: Order Comment: Speci men Type: BLOOD SPECIMENOrdering Facility: [facility] Address: [address] [place] [address] Performed By: #### 2 4323-8, , 2776-09 ####[facility] LABCLIA [id number] [place] [id number] [place] ALT [Catalytic activity/Vol] 12 U/L Normal 7-38 [facility] Comment on above: Order Comment: Speci men Type: BLOOD SPECIMENOrdering Facility: [facility] Address: [address] [place] [address] Performed By: #### 2 4323-8, , 2776-09 ####[facility] LABCLIA [id number] [place] [address] [place] Anion gap [Moles/Vol] 7 mmol/L Low 8-15 [facility] Comment on above: Order Comment: Speci men Type: BLOOD SPECIMENOrdering Facility: [facility] Address: [address] [place] [address] Performed By: #### 2 4323-8, , 2776-09 ####[facility] LABCLIA [id number] [place] [address] [place] AST [Catalytic activity/Vol] 17 U/L Normal 13-35 [facility] Comment on above: Order Comment: Speci men Type: BLOOD SPECIMENOrdering Facility: [facility] Address: [address] [place] [address] Performed By: #### 2 4323-8, , 2776-09 ####[facility] LABCLIA [id number] [place] [id number] [place] Bilirubin [Mass/Vol] mg/dL Low 0.2-1.3 [facility] Comment on above: Order Comment: Speci men Type: BLOOD SPECIMENOrdering Facility: [facility] Address: [address] [place] [address] Performed By: #### 2 4323-8, , 2776-09 ####[facility] LABCLIA [id number] [place] [address] [place] Calcium [Mass/Vol] 8.6 mg/dL Normal 8.5-10.2 [facility] Comment on above: Order Comment: Speci men Type: BLOOD SPECIMENOrdering Facility: [facility] Address: [address] [place] [address] Performed By: #### 2 4323-8, , 2776-09 ####[facility] LABCLIA [id number] [place] [address] [place] Chloride [Moles/Vol] 112 mmol/L High 98-107 [facility] Comment on above: Order Comment: Speci men Type: BLOOD SPECIMENOrdering Facility: [facility] Address: [address] [place] [address] Performed By: #### 2 432-8, , 2776-09 ####[facility] LABCLIA [id number] [place] [address] [place] CO2 [Moles/Vol] 24 mmol/L Normal 22-30 [facility] Comment on above: Order Comment: Speci men Type: BLOOD SPECIMENOrdering Facility: [facility] Address: [address] [place] [address] Performed By: #### 2 4323-8, , 2776-09 ####[facility] LABCLIA [id number] [place] [id number] [place] Creatinine [Mass/Vol] 0.86 mg/dL Normal 0.58-0.96 [facility] Comment on above: Order Comment: Speci men Type: BLOOD SPECIMENOrdering Facility: [facility] Address: [address] [place] [address] Performed By: #### 2 4323-8, , 2776-09 ####[facility] LABCLIA [id number] [address] [place] eGFRcr SerPlBld CKD-EPI 2020 79 mL/min/1.73m??? Normal >=60 [facility] Comment on above: Order Comment: Brandan eaton Type: BLOOD SPECIMENOrdering Facility: [facility] Address: [address] [place] [address] Result Comment: Zaria mated Glomerular Filtration Rate [...] actual GFR. Performed By: #### 2 4323-8, 76658-4, 7- ####[facility] LABCLIA [id number] [place] [address] [place] Glucose [Mass/Vol] 87 mg/dL Normal 74-99 [facility] Comment on above: Order Comment: Brandan eaton Type: BLOOD SPECIMENOrdering Facility: [facility] Address: [address] [place] [address] Result Comment: The [place] [employer] (ADA) provides guidance for cutoff [...] Standards of Medical Care in Diabetes 2016, [place] [employer]. Diabetes Care. 2016.39(Suppl 1). Performed By: #### 2 4323-8, 20386-8, 2777- ####[facility] LABCLIA [id number] [place] [id number] [place] Potassium [Moles/Vol] 4.0 mmol/L Normal 3.7-5.1 [facility] Comment on above: Order Comment: Speci men Type: BLOOD SPECIMENOrdering Facility: [facility] Address: [address] [place] [address] Performed By: #### 2 4323-8, , 2776-09 ####[facility] LABCLIA [id number] [place] [address] [place] Protein [Mass/Vol] 5.4 g/dL Low 6.3-8.0 [facility] Comment on above: Order Comment: Speci men Type: BLOOD SPECIMENOrdering Facility: [facility] Address: [address] [place] [address] Performed By: #### 2 4323-8, , 2776-09 ####[facility] LABCLIA [id number] [place] [id number] [place] Sodium [Moles/Vol] 143 mmol/L Normal 136-144 [facility] Comment on above: Order Comment: Speci men Type: BLOOD SPECIMENOrdering Facility: [facility] Address: [address] [place] [address] Performed By: #### 2 4323-8, , 2776-09 ####[facility] LABCLIA [id number] [place] [address] [place] Urea nitrogen [Mass/Vol] 9 mg/dL Normal 7-21 [facility] Comment on above: Order Comment: Speci men Type: BLOOD SPECIMENOrdering Facility: [facility] Address: [address] [place] [address] Performed By: #### 2 4323-8, , 2776-09 ####[facility] LABCLIA [id number] [place] [id number] [place] ED NOTEon 07-01-2025 ED NOTE HNO ID: [id number] Author: ALICE MARTINEZ LPN Service: Emergency Medicine Author Type: Licensed Nurse Type: ED Notes Filed: 07/01/2025 15:13 Note Text: Pt left AMA signed form stated a few times her ride was outside. Normal [facility] ED NOTE HNO ID: [id number] Author: KIMBERLEY HINDS RN Service: ? Author Type: Registered Nurse Type: ED Notes Filed: 07/01/2025 03:35 Note Text: Report to BRITTANY Murphy. Normal [facility] Magnesium SerPl-mCncon 07-01 Magnesium [Mass/Vol] 2.0 mg/dL [facility]7-[facility].3 [facility] Comment on above: Order Comment: Brandan eaton Type: BLOOD SPECIMENOrdering Facility: [facility] Address: [address] [place] [address] Performed By: #### 2 4323-8, 71185-0, 2777-1 ####[facility] LABCLIA [id number] [address] [facility] PT panel Coag (PPP)on 2024 INR Coag (PPP) [Relative time] 1.0 {INR} Normal 0.9-1.3 [facility] Comment on above: Order Comment: Barndan eaton Type: BLOOD SPECIMENOrdering Facility: [facility] Address: [address] [place] [address] Result Comment: Kelly min K Antagonist (VKA) Therapeutic Range: INR 2 to 3 (Target INR of 2.5)Note: For patients treated with VKA drugs, such as warfarin, the [place] [employer] 2012 Guideline recommends [...] al. Chest 2012, 141:7S-47SNishimura RA, et al. [facility] 2017, 70: 252-289 Performed By: #### 1 4979-9, 72926-9 ####[facility] LABCLIA [id number] [place] [id number] [place] PT Coag (PPP) [Time] 10.3 s Normal 9.7-13.0 [facility] Comment on above: Order Comment: Speci men Type: BLOOD SPECIMENOrdering Facility: [facility] Address: [address] [place] [address] Performed By: #### 1 4979-9, 44938-3 ####[facility] LABCLIA [id number] [place] [address] [place] Phosphate SerPl-mCncon 07-01 Phosphate [Mass/Vol] 3.6 mg/dL Normal 2.7-4.8 [facility] Comment on above: Order Comment: Speci men Type: BLOOD SPECIMENOrdering Facility: [facility] Address: [address] [place] [address] Performed By: #### 2 4323-8, 40066-0, 2777-1 ####[facility] [id number] [address] [place] aPTT PPPon 07-01-2025 aPTT Coag (PPP) [Time] s Low 23.0-32.4 [facility] Comment on above: Order Comment: Speci men Type: BLOOD SPECIMENOrdering Facility: [facility] Address: [address] [place] [address] Result Comment: Samp le checked for clot.Result rechecked. Performed By: #### 1 4979-9, 03668-0 ####[facility] LABIA [id number] [place] [address] [place] ALLIED HEALTHon 06-30-2025 ALLIED HEALTH Normal [facility] CBC W Auto Differential pane l (Bld)on 06-30-2025 Basophils (Bld) [#/Vol] 0.03 10*3/uL Normal <0.11 [facility] Comment on above: Order Comment: Speci men Type: BLOOD SPECIMENOrdering Facility: [facility] Address: [address] [place] [address] Performed By: #### 5 7021-8 ####[facility] LABCLIA [id number] [place] [address] [place] Basophils/100 WBC (Bld) 0.5 % Normal [facility] Comment on above: Order Comment: Speci men Type: BLOOD SPECIMENOrdering Facility: [facility] Address: [address] [place] [address] Performed By: #### 5 7021-8 ####[facility] LABCLIA [id number] [place] [address] [place] Differential cell count method Nom (Bld) Auto Normal [facility] Comment on above: Order Comment: Speci men Type: BLOOD SPECIMENOrdering Facility: [facility] Address: [address] [place] [address] Performed By: #### 5 7021-8 ####[facility] LABCLIA [id number] [place] [address] [place] Eosinophils (Bld) [#/Vol] 0.16 10*3/uL Normal <0.46 [facility] Comment on above: Order Comment: Speci men Type: BLOOD SPECIMENOrdering Facility: [facility] Address: [address] [place] [address] Performed By: #### 5 7021-8 ####[facility] LABCLIA [id number] [address] [place] Eosinophils/100 WBC (Bld) 2.9 % Normal [facility] Comment on above: Order Comment: Speci men Type: BLOOD SPECIMENOrdering Facility: [facility] Address: [address] [place] [address] Performed By: #### 5 7021-8 ####[facility] LABCLIA [id number] [place] [address] [place] Erythrocyte distribution width (RBC) [Ratio] 13.2 % Normal 11.5-15.0 [facility] Comment on above: Order Comment: Speci men Type: BLOOD SPECIMENOrdering Facility: [facility] Address: [address] [place] [address] Performed By: #### 5 7021-8 ####[facility] LABCLIA [id number] [place] [address] [place] Hematocrit (Bld) [Volume fraction] 33.8 % Low 36.0-46.0 [facility] Comment on above: Order Comment: Speci men Type: BLOOD SPECIMENOrdering Facility: [facility] Address: [address] [place] [address] Performed By: #### 5 7021-8 ####[facility] LABCLIA [id number] [place] [address] [place] Hemoglobin (Bld) [Mass/Vol] 10.7 g/dL Low 11.5-15.5 [facility] Comment on above: Order Comment: Speci men Type: BLOOD SPECIMENOrdering Facility: [facility] Address: [address] [place] [address] Performed By: #### 5 7021-8 ####[facility] LABCLIA [id number] [place] [address] [place] Immature granulocytes (Bld) [#/Vol] 10*3/uL Normal <0.10 [facility] Comment on above: Order Comment: Speci men Type: BLOOD SPECIMENOrdering Facility: [facility] Address: [address] [place] [address] Performed By: #### 5 7021-8 ####[facility] LABCLIA [id number] [address] [place] Immature granulocytes/100 WBC (Bld) 0.4 % Normal [facility] Comment on above: Order Comment: Speci men Type: BLOOD SPECIMENOrdering Facility: [facility] Address: [address] [place] [address] Performed By: #### 5 7021-8 ####[facility] LABCLIA [id number] [place] [address] [place] Lymphocytes (Bld) [#/Vol] 0.90 10*3/uL Low 1.00-4.00 [facility] Comment on above: Order Comment: Speci men Type: BLOOD SPECIMENOrdering Facility: [facility] Address: [address] [place] [address] Performed By: #### 5 7021-8 ####[facility] LABCLIA [id number] [place] [address] [place] Lymphocytes/100 WBC (Bld) 16.1 % Normal [facility] Comment on above: Order Comment: Speci men Type: BLOOD SPECIMENOrdering Facility: [facility] Address: [address] [place] [address] Performed By: #### 5 7021-8 ####[facility] LABCLIA [id number] [place] [address] [place] MCH (RBC) [Entitic mass] 29.3 pg Normal 26.0-34.0 [facility] Comment on above: Order Comment: Speci men Type: BLOOD SPECIMENOrdering Facility: [facility] Address: [address] [place] [address] Performed By: #### 5 7021-8 ####[facility] LABCLIA [id number] [address] [place] MCHC (RBC) [Mass/Vol] 31.7 g/dL Normal 30.5-36.0 [facility] Comment on above: Order Comment: Speci men Type: BLOOD SPECIMENOrdering Facility: [facility] Address: [address] [place] [address] Performed By: #### 5 7021-8 ####[facility] LABCLIA [id number] [place] [address] [place] MCV (RBC) [Entitic vol] 92.6 fL Normal 80.0-100.0 [facility] Comment on above: Order Comment: Speci men Type: BLOOD SPECIMENOrdering Facility: [facility] Address: [address] [place] [address] Performed By: #### 5 7021-8 ####[facility] LABCLIA [id number] [place] [address] [place] Monocytes (Bld) [#/Vol] 0.70 10*3/uL Normal <0.87 [facility] Comment on above: Order Comment: Speci men Type: BLOOD SPECIMENOrdering Facility: [facility] Address: [address] [place] [address] Performed By: #### 5 7021-8 ####[facility] LABCLIA [id number] [place] [address] [place] Monocytes/100 WBC (Bld) 12.5 % Normal [facility] Comment on above: Order Comment: Speci men Type: BLOOD SPECIMENOrdering Facility: [facility] Address: [address] [place] [address] Performed By: #### 5 7021-8 ####[facility] LABCLIA [id number] [place] [address] [place] Neutrophils (Bld) [#/Vol] 3.77 10*3/uL Normal 1.45-7.50 [facility] Comment on above: Order Comment: Speci men Type: BLOOD SPECIMENOrdering Facility: [facility] Address: [address] [place] [address] Performed By: #### 5 7021-8 ####[facility] LABCLIA [id number] [address] [place] Neutrophils/100 WBC (Bld) 67.6 % Normal [facility] Comment on above: Order Comment: Speci men Type: BLOOD SPECIMENOrdering Facility: [facility] Address: [address] [place] [address] Performed By: #### 5 7021-8 ####[facility] LABCLIA [id number] [place] [address] [place] Nucleated RBC (Bld) [#/Vol] 10*3/uL Normal <0.01 [facility] Comment on above: Order Comment: Speci men Type: BLOOD SPECIMENOrdering Facility: [facility] Address: [address] [place] [address] Performed By: #### 5 7021-8 ####[facility] LABCLIA [id number] [place] [address] [place] Nucleated RBC/100 WBC (Bld) [Ratio] 0.0 /100 WBC Normal [facility] Comment on above: Order Comment: Speci men Type: BLOOD SPECIMENOrdering Facility: [facility] Address: [address] [place] [address] Performed By: #### 5 7021-8 ####[facility] LABCLIA [id number] [place] [address] [place] Platelet mean volume (Bld) [Entitic vol] 11.4 fL Normal 9.0-12.7 [facility] Comment on above: Order Comment: Speci men Type: BLOOD SPECIMENOrdering Facility: [facility] Address: [address] [place] [address] Performed By: #### 5 7021-8 ####[facility] LABCLIA [id number] [place] [address] [place] Platelets (Bld) [#/Vol] 291 10*3/uL Normal 150-400 [facility] Comment on above: Order Comment: Speci men Type: BLOOD SPECIMENOrdering Facility: [facility] Address: [address] [place] [address] Performed By: #### 5 7021-8 ####[facility] LABCLIA [id number] [place] [address] [place] RBC (Bld) [#/Vol] 3.65 10*6/uL Low 3.90-5.20 [facility] Comment on above: Order Comment: Speci men Type: BLOOD SPECIMENOrdering Facility: [facility] Address: [address] [place] [address] Performed By: #### 5 7021-8 ####[facility] LABCLIA [id number] [place] [address] [place] WBC (Bld) [#/Vol] 5.58 10*3/uL Normal 3.70-11.00 [facility] Comment on above: Order Comment: Speci men Type: BLOOD SPECIMENOrdering Facility: [facility] Address: [address] [place] [address] Performed By: #### 5 7021-8 ####[facility] LABCLIA [id number] [place] [address] [place] CONSULTon 06-30-2025 CONSULT Normal [facility] CTA HEAD WO/W IVCONon 2024 CTA HEAD WO/W IVCON Normal [facility] CTA NECK W IVCONon CTA NECK W IVCON Normal [facility] Comprehensive metabolic 2000 panelon 06-30-2025 Albumin [Mass/Vol] 4.0 g/dL Normal 3.9-4.9 [facility] Comment on above: Order Comment: Speci men Type: BLOOD SPECIMENOrdering Facility: [facility] Address: [address] [place] [address] Performed By: #### 2 4323-8, [id number], , 99456-8 ####[facility] LABCLIA [id number] [place] [address] [place] ALP [Catalytic activity/Vol] 115 U/L Normal 34-123 [facility] Comment on above: Order Comment: Speci men Type: BLOOD SPECIMENOrdering Facility: [facility] Address: [address] [place] [address] Performed By: #### 2 4323-8, [id number], 92909-7, 46357-4 ####[facility] LABCLIA [id number] [place] [id number] [place] ALT [Catalytic activity/Vol] 15 U/L Normal 7-38 [facility] Comment on above: Order Comment: Speci men Type: BLOOD SPECIMENOrdering Facility: [facility] Address: [address] [place] [address] Performed By: #### 2 4323-8, [id number], , 51405-0 ####[facility] LABCLIA [id number] [place] [address] [place] Anion gap [Moles/Vol] 8 mmol/L Normal 8-15 [facility] Comment on above: Order Comment: Speci men Type: BLOOD SPECIMENOrdering Facility: [facility] Address: [address] [place] [address] Performed By: #### 2 4323-8, [id number], , 15782-4 ####[facility] LABCLIA [id number] [place] [address] [place] AST [Catalytic activity/Vol] 21 U/L Normal 13-35 [facility] Comment on above: Order Comment: Speci men Type: BLOOD SPECIMENOrdering Facility: [facility] Address: [address] [place] [address] Result Comment: Resu lts may be falsely increased due to interference from hemolysis. Suggest reorder as clinically indicated. Performed By: #### 2 4323-8, [id number], , 69862-2 ####[facility] LABCLIA [id number] [place] [address] [place] Bilirubin [Mass/Vol] mg/dL Low 0.2-1.3 [facility] Comment on above: Order Comment: Speci men Type: BLOOD SPECIMENOrdering Facility: [facility] Address: [address] [place] [address] Performed By: #### 2 4323-8, [id number], , 24170-2 ####[facility] LABCLIA [id number] [place] [id number] [place] Calcium [Mass/Vol] 9.4 mg/dL Normal 8.5-10.2 [facility] Comment on above: Order Comment: Speci men Type: BLOOD SPECIMENOrdering Facility: [facility] Address: [address] [place] [address] Performed By: #### 2 4323-8, [id number], 16900-6, 40776-8 ####[facility] LABCLIA [id number] [place] [address] [place] Chloride [Moles/Vol] 105 mmol/L Normal 98-107 [facility] Comment on above: Order Comment: Speci men Type: BLOOD SPECIMENOrdering Facility: [facility] Address: [address] [place] [address] Performed By: #### 2 4323-8, [id number], , 10738-4 ####[facility] LABCLIA [id number] [place] [address] [place] CO2 [Moles/Vol] 24 mmol/L Normal 22-30 [facility] Comment on above: Order Comment: Speci men Type: BLOOD SPECIMENOrdering Facility: [facility] Address: [address] [place] [address] Performed By: #### 2 4323-8, [id number], , 71855-3 ####[facility] LABCLIA [id number] [place] [address] [place] Creatinine [Mass/Vol] 0.82 mg/dL Normal 0.58-0.96 [facility] Comment on above: Order Comment: Speci men Type: BLOOD SPECIMENOrdering Facility: [facility] Address: [address] [place] [address] Performed By: #### 2 4323-8, [id number], 54964-9, 12283-9 ####[facility] LABCLIA [id number] [place] [address] [place] eGFRcr SerPlBld CKD-EPI 2021 84 mL/min/1.73m??? Normal >=60 [facility] Comment on above: Order Comment: Speci men Type: BLOOD SPECIMENOrdering Facility: [facility] Address: [address] [place] [address] Result Comment: Zaria mated Glomerular Filtration Rate [...] actual GFR. Performed By: #### 2 4323-8, [id number], 90798-0, 85590-4 ####[facility] LABCLIA [id number] [place] [id number] [place] Glucose [Mass/Vol] 84 mg/dL Normal 74-99 [facility] Comment on above: Order Comment: Specemily men Type: BLOOD SPECIMENOrdering Facility: [facility] Address: [address] [place] [address] Result Comment: The [place] [employer] (ADA) provides guidance for cutoff [...] Standards of Medical Care in Diabetes 2016, [place] [employer]. Diabetes Care. 2016.39(Suppl 1). Performed By: #### 2 4323-8, [id number], 22276-9, 56509-6 ####[facility] LABCLIA [id number] [place] [id number] [place] Potassium [Moles/Vol] 4.7 mmol/L Normal 3.7-5.1 [facility] Comment on above: Order Comment: Specemily men Type: BLOOD SPECIMENOrdering Facility: [facility] Address: [address] [place] [address] Performed By: #### 2 4323-8, [id number], 29048-0, 76739-8 ####[facility] LABCLIA [id number] [place] [address] [place] Protein [Mass/Vol] 6.7 g/dL Normal 6.3-8.0 [facility] Comment on above: Order Comment: Speci men Type: BLOOD SPECIMENOrdering Facility: [facility] Address: [address] [place] [address] Performed By: #### 2 4323-8, [id number], 70247-0, 48242-6 ####[facility] LABCLIA [id number] [place] [id number] [place] Sodium [Moles/Vol] 137 mmol/L Normal 136-144 [facility] Comment on above: Order Comment: Speci men Type: BLOOD SPECIMENOrdering Facility: [facility] Address: [address] [place] [address] Performed By: #### 2 4323-8, [id number], 88253-0, 40314-2 ####[facility] LABCLIA [id number] [place] [id number] [place] Urea nitrogen [Mass/Vol] 12 mg/dL Normal 7-21 [facility] Comment on above: Order Comment: Speci men Type: BLOOD SPECIMENOrdering Facility: [facility] Address: [address] [place] [address] Performed By: #### 2 4323-8, [id number], 27793-2, 61898-3 ####[facility] LABCLIA [id number] [place] [address] [place] ED PROV NOTEon 06-30-2025 ED PROV NOTE Normal [facility] ED PROV NOTE Normal [facility] HIGH SENSITIVITY TROPONIN T (INITIAL)on 06-30-2025 Troponin T.cardiac High sensitivity method [Mass/Vol] <6 Normal <12 [facility] Comment on above: Order Comment: Speci men Type: BLOOD SPECIMENOrdering Facility: [facility] Address: [address] [place] [address] Performed By: #### 2 4323-8, [id number], 14004-0, 81633-2 ####[facility] LABCLIA [id number] [place] [address] [place] HIGH SENSITIVITY TROPONIN T (SECOND)on 06-30-2025 Troponin T.cardiac High sensitivity method [Mass/Vol] <6 Normal <12 [facility] Comment on above: Order Comment: Speci men Type: BLOOD SPECIMENOrdering Facility: [facility] Address: [address] [place] [address] Performed By: #### L [id number] ####[facility] LABIA [id number] [place] [address] [place] HISTORY PHYSICALon HISTORY PHYSICAL Normal [facility] MRA CAROTID WO/W IVCONon MRA CAROTID WO/W IVCON Normal [facility] MRI BRAIN WO IVCONon 025 MRI BRAIN WO IVCON Normal [facility] Magnesium SerPl-mCncon 06-30 Magnesium [Mass/Vol] 2.2 mg/dL Normal 1.7-2.3 [facility] Comment on above: Order Comment: Speci men Type: BLOOD SPECIMENOrdering Facility: [facility] Address: [address] [place] [address] Performed By: #### 2 4323-8, [id number], , 44824-3 ####[facility] LABCLIA [id number] [place] [address] [place] NT-proBNP SerPl-mCncon 06-30 Natriuretic peptide.B prohormone N-Terminal [Mass/Vol] 92 pg/mL Normal <125 [facility] Comment on above: Order Comment: Speci men Type: BLOOD SPECIMENOrdering Facility: [facility] Address: [address] [place] [address] Performed By: #### 2 4323-8, [id number], , 31565-6 ####[facility] LABCLIA [id number] [address] STATES OF [facility] Absolute lymphocyte countOrd ered By: Renato Hanley on 06-29-2025 Lymphocytes Auto (Unsp spec) [#/Vol] 1.05 10*3/uL 0.83-4.51 [facility] Absolute neutrophil countOrd ered By: Renato Hanley on 06-29-2025 Neutrophils (Bld) [#/Vol] 4.5 10*3/uL 2.0-7.7 [facility] Anion gap in Serum or Plasma Ordered By: Renato Hanley on 06-29-2025 Anion gap [Moles/Vol] 9 mmol/L 01-14 [facility] Automated lymphocyte count a s percentage of total leukocytesOrdered By: Renato Hanley on 06-29-2025 Lymphocytes/100 WBC Auto (Unsp spec) 15.4 % Low 19- [facility] BUN/creatinine ratioOrdered By: Renato Hanlye on 06-29-2025 Urea nitrogen/Creatinine [Mass ratio] 16.5 mg/mg 06-21 [facility] Basic Metabolic Profile (BMP )on 06-29-2025 BUN/CRE 16.5 RATIO Normal 06-21 [facility] Comment on above: Performed By: #### L 500.3400, L501.9520, L501.2450, L500.2500, L501.5200 #### [facility] Laboratory [address] [place], [address] Calcium [Mass/Vol] 9.4 mg/dL Normal 7.6-11.0 [facility] Comment on above: Performed By: #### L 500.3400, L501.9520, L501.2450, L500.2500, L501.5200 #### [facility] [address] [place], [address] Chloride [Moles/Vol] 102 mmol/L Normal 98-108 [facility] Comment on above: Performed By: #### L 500.3400, L501.9520, L501.2450, L500.2500, L501.5200 #### [facility] [address] [place], [address] CO2 [Moles/Vol] 26.6 mmol/L Normal 21.0-32.0 [facility] Comment on above: Performed By: #### L 500.3400, L501.9520, L501.2450, L500.2500, L501.5200 #### [facility] [address] [place], [address] Creatinine [Mass/Vol] 1.01 mg/dL Normal 0.70-1.20 [facility] Comment on above: Performed By: #### L 500.3400, L501.9520, L501.2450, L500.2500, L501.5200 #### [facility] [address] [place], [address] ECRCL 54.95 ml/min Normal 50-250 [facility] Comment on above: Performed By: #### L 500.3400, L501.9520, L501.2450, L500.2500, L501.5200 #### [facility] [address] [place], [address] GAP 9 Normal 5-15 [facility] Comment on above: Performed By: #### L 500.3400, L501.9520, L501.2450, L500.2500, L501.5200 #### [facility] [address] [place], [address] GFR/1.73 sq M.predicted among non-blacks MDRD (S/P/Bld) [Vol rate/Area] 65 mL/min/{1.73_m2} Normal >60 [facility] Comment on above: Result Comment: mL/m in/1.73m2 CKD-EPI Creatinine Equation (2020) Performed By: #### L 500.3400, L501.9520, L501.2450, L500.2500, L501.5200 #### [facility] [address] [place], [address] Glucose [Mass/Vol] 97 mg/dL Normal 70-99 [facility] Comment on above: Performed By: #### L 500.3400, L501.9520, L501.2450, L500.2500, L501.5200 #### [facility] [address] [place], [address] Potassium [Moles/Vol] 4.4 mmol/L Normal 3.3-5.1 [facility] Comment on above: Performed By: #### L 500.3400, L501.9520, L501.2450, L500.2500, L501.5200 #### [facility] [address] [place], [address] Sodium [Moles/Vol] 138 mmol/L Normal 133-145 [facility] Comment on above: Performed By: #### L 500.3400, L501.9520, L501.2450, L500.2500, L501.5200 #### [facility] [address] [place], [address] Urea nitrogen [Mass/Vol] 17 mg/dL Normal 4-19 [facility] Comment on above: Performed By: #### L 500.3400, L501.9520, L501.2450, L500.2500, L501.5200 #### [facility] [address] [place], [address] Basophil percentageOrdered B y: Renato Hanley on 06-29-2025 Basophils/100 WBC (Bld) 0.4 % 0-1 [facility] Bilirubin Test strip Ql (U)O rdered By: Renato Hanley on 06-29-2025 Bilirubin Ql (U) Negative Negative [facility] Bilirubin directOrdered By: Renato Hanley on 06-29-2025 Bilirubin.direct [Mass/Vol] 0.10 mg/dL 0.00-0.30 [facility] Bilirubin, totalOrdered By: Renato Hanley on 06-29-2025 Bilirubin [Mass/Vol] 0.17 mg/dL 0.00-1.30 [facility] CBC W/Diff, Automatedon 06-03 Absolute Lymph 1.05 X10 3/uL Normal 0.83-4.51 [facility] Comment on above: Performed By: #### L 100.0100 ####[facility] [address] [place], [address] Absolute Neut 4.5 X10 3/uL Normal 2.0-7.7 [facility] Comment on above: Performed By: #### L 100.0100 ####[facility] [address] [place], [address] Basophils/100 WBC (Bld) 0.4 % Normal 0-1 [facility] Comment on above: Performed By: #### L 100.0100 ####[facility] [address] [place], [address] Eosinophils/100 WBC (Bld) 3.1 % Normal 0-5 [facility] Comment on above: Performed By: #### L 100.0100 ####[facility] [address] [place], [address] Erythrocyte distribution width (RBC) [Ratio] 13.1 % Normal 11.6-14.6 [facility] Comment on above: Performed By: #### L 100.0100 ####[facility] [address] [place], [address] Hematocrit (Bld) [Volume fraction] 34.1 % Low 37-47 [facility] Comment on above: Performed By: #### L 100.0100 ####[facility] [address] [place], [address] Hemoglobin (Bld) [Mass/Vol] 11.2 g/dL Low 12.0-15.0 [facility] Comment on above: Performed By: #### L 100.0100 ####[facility] [address] [place], [address] IG% 0.300 Normal 0.0-0.9 [facility] Comment on above: Result Comment: IG% - Immature Granulocytes (promyelocytes, myelocytes and metamyelocytes) > 1% indicates that a LEFT SHIFT is Present. Performed By: #### L 100.0100 ####[facility] [address] [place], [address] Lymphocytes/100 WBC (Bld) 15.4 % Low 19-41 [facility] Comment on above: Performed By: #### L 100.0100 ####[facility] [address] [place], [address] MCH (RBC) [Entitic mass] 29.6 pg Normal 27.0-32.0 [facility] Comment on above: Performed By: #### L 100.0100 ####[facility] [address] [place], [address] MCHC (RBC) [Mass/Vol] 32.8 g/dL Normal 32-36 [facility] Comment on above: Performed By: #### L 100.0100 ####[facility] [address] [place], [address] MCV (RBC) [Entitic vol] 90.0 fL Normal 81-99 [facility] Comment on above: Performed By: #### L 100.0100 ####[facility] [address] [place], [address] Monocytes/100 WBC (Bld) 14.2 % High 0-10 [facility] Comment on above: Performed By: #### L 100.0100 ####[facility] [address] [place], [address] Neutrophils/100 WBC (Bld) 66.6 % Normal 47-70 [facility] Comment on above: Performed By: #### L 100.0100 ####[facility] [address] [place], [address] Nucleated RBC (Bld) [#/Vol] 0 10*3/uL Normal 0-5 [facility] Comment on above: Performed By: #### L 100.0100 ####[facility] [address] [place], [address] Platelet mean volume (Bld) [Entitic vol] 10.4 fL Normal 6.2-12.0 [facility] Comment on above: Performed By: #### L 100.0100 ####[facility] [address] [place], [address] Platelets (Bld) [#/Vol] 311 10*3/uL Normal 150-450 [facility] Comment on above: Performed By: #### L 100.0100 ####[facility] [address] [place], [address] RBC (Bld) [#/Vol] 3.79 10*6/uL Low 4.2-5.4 [facility] Comment on above: Performed By: #### L 100.0100 ####[facility] [address] [place], [address] RDW SD 43.0 fl Normal 35.1-43.9 [facility] Comment on above: Performed By: #### L 100.0100 ####[facility] [address] [place], [address] WBC (Bld) [#/Vol] 6.8 10*3/uL Normal 4.4-11.0 [facility] Comment on above: Performed By: #### L 100.0100 ####[facility] [address] [place], [address] Carbon dioxide, total [Moles /volume] in Central venous bloodOrdered By: Renato Hanley on 06-29-2025 CO2 [Moles/Vol] 26.6 mmol/L 21.0-32.0 [facility] Chest 1 View (Portable)on Chest 1 View (Portable) [facility] Imaging Services [address] [place] [address] Chest 1 View (Portable) MR#: [id number] Acct: [id number] Name: ALLIE LYNN ANN Rep #: [id number] : 1970 F 55 From: Fercho us MD PCP: Dr. Ifeoma Davis MD Status: REG ER Study: Chest 1 View (Portable) Date of Exam: 06/29/25 Exam# [id number] Ordering Dr: Renato Hanley DO PROCEDURE: CHEST [...] IMPRESSION: No acute cardiopulmonary process Reading Location: [place] [address] CC: Dr. Ifeoma Davis MD; Renato Hanley DO Gifted Program Teacher: Signed Normal [facility] Chloride assayOrdered By: Mojgan Hanley on 06-29-2025 Chloride [Moles/Vol] 102 mmol/L 98-108 [facility] Emergency Department Summary on 06-29-2025 Emergency Department Summary [facility] Medical Records Department [address] [place] [address] Emergency Department Summary 06/29/25 MR#: [id number] Acct: [id number] Name: ALLIE LYNN ANN Rep #: [id number] : 1970 55 From: Renato Hanley DO [...] and with this comes in for evaluation [facility] Medical History (Updated 06/29/25 @ 22:[address] Renato Hanley DO) PXE (pseudoxanthoma elasticum) Wears glasses Depression [...] SUPPLMENT 06/11/25 Unknown History cell-Bifido 25 billion saav-QQM-ucnye capsule cevimeline 30 mg capsule 1 cap [...] Ovarian c (more content not included)... Normal [facility] Eosinophil percentageOrdered By: Renato Hanley on 06-29-2025 Eosinophils/100 WBC (Bld) 3.1 % 0-5 [facility] Erythrocyte distribution wid th ratioOrdered By: Renato Hanley on 06-29-2025 Erythrocyte distribution width (RBC) [Ratio] 13.1 % 11.6-14.6 [facility] Erythrocyte distribution wid th standard deviationOrdered By: Renato Hanley on 06-29-2025 Erythrocyte distribution width (RBC) [Ratio] 43.0 fl 35.1-43.9 [facility] Glomerular filtration rate ( GFR) estimation/1.73 sq m using serum, plasma, or whole bOrdered By: Renato Hanley on 06-29-2025 GFR/1.73 sq M.predicted among non-blacks MDRD (S/P/Bld) [Vol rate/Area] 65 mL/min/{1.73_m2} >60 [facility] Comment on above: mL/min/1.73m2 CKD-EP I Creatinine Equation (2020) Hematocrit Auto (Bld) [Volum e fraction]Ordered By: Renato Hanley on 06-29-2025 Hematocrit (Bld) [Volume fraction] 34.1 % Low 37-47 [facility] Hemoglobin measurementOrdere d By: Renato Hanley on 06-29-2025 Hemoglobin (Bld) [Mass/Vol] 11.2 g/dL Low 12.0-15.0 [facility] Immature granulocytes/100 WB C Auto (Bld)Ordered By: Renato Hanley on 06-29-2025 Immature granulocytes/100 WBC (Bld) 0.300 % 0.0-0.9 [facility] Comment on above: IG% - Immature Granu locytes (promyelocytes, myelocytes and metamyelocytes) > 1% indicates that a LEFT SHIFT is Present. Influenza virus A and B and SARS-CoV-2 (COVID-19) and Respiratory syncytial virus RNAOrdered By: Renato Hanley on 06-29-2025 SARS-CoV-2 (COVID-19) RNA SUKUMAR+probe Ql (Unsp spec) [facility] SARS-CoV-2 (COVID-19) RNA SUKUMAR+probe Ql (Unsp spec) [facility] Ketones Test strip Ql (U)Ord ered By: Renato Hanley on 06-29-2025 Ketones Ql (U) Negative Negative [facility] Laboratory - Chemistry and C hemistry - challengeOrdered By: Renato Hanley on 06-29-2025 AST [Catalytic activity/Vol] 17 U/L <32 [facility] Lipaseon 06-29-2025 Lipase [Catalytic activity/Vol] 22 U/L Normal 13-75 [facility] Comment on above: Result Comment: Janet almanza note: LIPASE revised reference range effective 22. New Lipase methodology. Expected to produce lower values than the previous assay method. NEW Reference Range: 13 - 75 U/L Performed By: #### L 500.3400, L501.9520, L501.2450, L500.2500, L501.5200 #### [facility] [address] [place], [place], [address] Lipase measurementOrdered By : Renato Hanley on 06-29-2025 Lipase [Catalytic activity/Vol] 22 U/L 13- [facility] Comment on above: Please note:LIPASE r evised reference range effective 22. New Lipase methodology. Expected to produce lower values than the previous assay method. NEW Reference Range: 13 - 75 U/L Liver Profileon 06-29-2025 Albumin [Mass/Vol] 4.1 g/dL Normal 3.5-5.0 [facility] Comment on above: Performed By: #### L 500.3400, L501.9520, L501.2450, L500.2500, L501.5200 #### [facility] [address] [place], [address] ALK PHOS 113 U/L High 35-104 [facility] Comment on above: Performed By: #### L 500.3400, L501.9520, L501.2450, L500.2500, L501.5200 #### [facility] [address] [place], [address] ALT [Catalytic activity/Vol] 16 U/L Normal <=34 [facility] Comment on above: Performed By: #### L 500.3400, L501.9520, L501.2450, L500.2500, L501.5200 #### [facility] [address] [place], [address] AST [Catalytic activity/Vol] 17 U/L Normal <=31 [facility] Comment on above: Performed By: #### L 500.3400, L501.9520, L501.2450, L500.2500, L501.5200 #### [facility] [address] [place], [address] Bilirubin [Mass/Vol] 0.17 mg/dL Normal 0.00-1.30 [facility] Comment on above: Performed By: #### L 500.3400, L501.9520, L501.2450, L500.2500, L501.5200 #### [facility] [address] [place], [address] Bilirubin.direct [Mass/Vol] 0.10 mg/dL Normal 0.00-0.30 [facility] Comment on above: Performed By: #### L 500.3400, L501.9520, L501.2450, L500.2500, L501.5200 #### [facility] [address] [place] [place], [address] Globulin (S) [Mass/Vol] 2.5 g/dL Normal 2.2-4.2 [facility] Comment on above: Performed By: #### L 500.3400, L501.9520, L501.2450, L500.2500, L501.5200 #### [facility] [address] [place], [address] T PROT 6.5 g/dL Normal 5.9-8.4 [facility] Comment on above: Performed By: #### L 500.3400, L501.9520, L501.2450, L500.2500, L501.5200 #### [facility] [address] [place], [address] M100.678on 06-29-2025 M100.678 SARS-CoV-2 (COVID 19 ) Negative INFLUENZA A Negative INFLUENZA B Negative RSV PCR Negative Normal [facility] Comment on above: Performed By: #### M 100.678 ####[facility] [address] [place], [address] MCV (mean corpuscular volume ) determinationOrdered By: Renato Hanley on 06-29-2025 MCV (RBC) [Entitic vol] 90.0 fL 81-99 [facility] Magnesiumon 06-29-2025 Magnesium [Mass/Vol] 2.1 mg/dL Normal 1.5-2.2 [facility] Comment on above: Performed By: #### L 500.3400, L501.9520, L501.2450, L500.2500, L501.5200 #### [facility] [address] [place], [address] Magnesium measurement (mass/ volume)Ordered By: Renato Hanley on 06-29-2025 Magnesium (Unsp spec) [Mass/Vol] 2.1 mg/dL 1.5-2.2 [facility] Mean corpuscular hemoglobin (MCH) determinationOrdered By: Renato Hanley on 06-29-2025 MCH (RBC) [Entitic mass] 29.6 pg 27.0-32.0 [facility] Mean corpuscular hemoglobin concentration (MCHC) determinationOrdered By: Renato Hanley on 06-29-2025 MCHC (RBC) [Mass/Vol] 32.8 g/dL 32-36 [facility] Mean platelet volume determi nationOrdered By: Renato Hanley on 06-29-2025 Platelet mean volume (Bld) [Entitic vol] 10.4 fL 6.2-12.0 [facility] Microscopic analysis of urin e for red blood cells (RBC)Ordered By: Renato Hanley on 06-29-2025 Microscopic analysis of urine for red blood cells (RBC) 0-5 SEEN /hpf 0-5 [facility] Monocyte percentageOrdered B y: Renato Hanley on 06-29-2025 Monocytes/100 WBC (Bld) 14.2 % High 0-10 [facility] Mucus LM Ql (Urine sed)Order ed By: Renato Hanley on 06-29-2025 Mucus Ql (Urine sed) 0 SEEN /hpf [facility] Neutrophil percentageOrdered By: Renato Hanley on 06-29-2025 Neutrophils/100 WBC (Bld) 66.6 % 47-70 [facility] Nitrite Test strip Ql (U)Ord ered By: Renato Hanley on 06-29-2025 Nitrite Ql (U) Negative Negative [facility] Nucleated red blood cell per centageOrdered By: Renato Hanley on 06-29-2025 Nucleated RBC/100 WBC (Bld) [Ratio] 0 % 0-5 [facility] Platelet countOrdered By: Mojgan Hanley on 06-29-2025 Platelets (Bld) [#/Vol] 311 10*3/uL 150-450 [facility] Potassium measurement (mass/ volume)Ordered By: Renato Hanley on 06-29-2025 Potassium (Unsp spec) [Mass/Vol] 4.4 mmol/L 3.3-5.1 [facility] [facility] Test strip Ql (U)Ord ered By: Renato Hanley on 06-29-2025 Protein Ql (U) Negative Negative [facility] RBC Auto (Bld) [#/Vol]Ordere d By: Renato Hanley on 06-29-2025 RBC (Bld) [#/Vol] 3.79 10*6/uL Low 4.2-5.4 [facility] Serum creatinine measurement (mass/volume)Ordered By: Renato Hanley on 06-29-2025 Creatinine [Mass/Vol] 1.01 mg/dL 0.70-1.20 [facility] Serum globulin measurementOr dered By: Renato Hanley on 06-29-2025 Globulin (S) [Mass/Vol] 2.5 g/dL 2.2-4.2 [facility] Serum glucose measurement (m ass/volume)Ordered By: Renato Hanley on 06-29-2025 Glucose [Mass/Vol] 97 mg/dL 70-99 [facility] Serum or plasma alanine tse otransferase (ALT) measurementOrdered By: Renato Hanley on 06-29-2025 ALT [Catalytic activity/Vol] 16 U/L <35 [facility] Serum or plasma albumin ross urement (mass/volume)Ordered By: Renato Hanley on 06-29-2025 Albumin [Mass/Vol] 4.1 g/dL 3.5-5.0 [facility] Serum or plasma alkaline aleks sphatase measurementOrdered By: Renato Hanley on 06-29-2025 ALP [Catalytic activity/Vol] 113 U/L High 35-104 [facility] Serum or plasma calcium ross urement (mass/volume)Ordered By: Renato Hanley on 06-29-2025 Calcium [Mass/Vol] 9.4 mg/dL 7.6-11.0 [facility] Serum or plasma urea nitroge n measurement (mass/volume)Ordered By: Renato Hanley on 06-29-2025 Urea nitrogen [Mass/Vol] 17 mg/dL 4-19 [facility] Sodium levelOrdered By: Earl Hanley on 06-29-2025 Sodium [Moles/Vol] 138 mmol/L 133-145 [facility] Squamous epithelial cells de tection in urine sediment by light microscopyOrdered By: Renato Hanley on 06-29-2025 Epithelial cells.squamous LM Ql (Urine sed) 0-5 SEEN /hpf 5-10 [facility] TSH DL <= 0.005 mIU/L QnOrde red By: Renato Hanley on 06-29-2025 TSH Qn 5.840 uIU/mL High 0.300-4.200 [facility] Thyroid Stim Hormone (TSH)on 06-29-2025 TSH 5.840 uIU/mL High 0.300-4.200 [facility] Comment on above: Performed By: #### L 500.3400, L501.9520, L501.2450, L500.2500, L501.5200 ####[facility] [address] [place], [address] Total proteinOrdered By: Ricardo Hanley on 06-29-2025 Protein [Mass/Vol] 6.5 g/dL 5.9-8.4 [facility] Transitional cells detection in urine sediment by light microscopyOrdered By: Renato Hanley on 06-29-2025 Transitional cells LM Ql (Urine sed) 0-5 SEEN /hpf 0-5 [facility] Urinalysis, Completeon 06-29 BACTERIA 1+ /hpf Normal None Seen [facility] Comment on above: Order Comment: CLEAN CATCH Performed By: #### L 400.0001 #### [facility] Laboratory [address] [place], [address] EPI,SQUAMOUS 0-5 SEEN Normal 5-10 [facility] Comment on above: Order Comment: CLEAN CATCH Performed By: #### L 400.0001 #### [facility] [address] [place], [address] EPI,TRANSITION 0-5 SEEN Normal 0-5 [facility] Comment on above: Order Comment: CLEAN CATCH Performed By: #### L 400.0001 #### [facility] [address] [place], [address] RBC 0-5 SEEN Normal 0-5 [facility] Comment on above: Order Comment: CLEAN CATCH Performed By: #### L 400.0001 #### [facility] [address] [place], [address] WBC 0-5 SEEN Normal 0-5 [facility] Comment on above: Order Comment: CLEAN CATCH Performed By: #### L 400.0001 #### [facility] [address] [place], [place], [id number] Mucus Ql (Urine sed) 0 SEEN Normal [facility] Comment on above: Order Comment: CLEAN CATCH Performed By: #### L 400.0001 #### [facility] [address] [place], [place], [id number] Urine clarityOrdered By: Ricardo Hanley on 06-29-2025 Clarity (U) Clear Clear [facility] Urine color determinationOrd ered By: Renato Hanley on 06-29-2025 Color (U) Yellow Yellow [facility] Urine glucose detectionOrder ed By: Renato Hanley on 06-29-2025 Glucose Ql (U) Normal mg/dl Normal [facility] Urine leukocyte esterase det ection by dipstickOrdered By: Renato Hanley on 06-29-2025 Leukocyte esterase Test strip Ql (U) 100 /ul High Negative [facility] Urine pHOrdered By: Renato goncalves on 06-29-2025 pH (U) 6.5 [pH] 5.0 - 8.0 [facility] Urine sediment bacteria coun t by microscopy (number/high power field)Ordered By: Renato Hanley on 06-29-2025 Bacteria LM.HPF (Urine sed) [#/Area] 1 /[HPF] None Seen [facility] Urine specific gravity measu rementOrdered By: Renato Hanley on 06-29-2025 Specific gravity (U) [Rel density] 1.010 1.002-1.030 [facility] Urine urobilinogen measureme ntOrdered By: Renato Hanley on 06-29-2025 Urobilinogen Ql (U) Normal mg/dl Normal [facility] White blood cell (WBC) count Ordered By: Renato Hanley on 06-29-2025 WBC (Bld) [#/Vol] 6.8 10*3/uL 4.4-11.0 [facility] White blood cell countOrdere d By: Renato Hanley on 06-29-2025 White blood cell count 0-5 SEEN /hpf 0-5 [facility] CNPNon 06-25-2025 CNPN Normal [facility] Absolute lymphocyte countOrd ered By: Geovanni Sorto on 06-23-2025 Lymphocytes Auto (Unsp spec) [#/Vol] 1.25 10*3/uL 0.83-4.51 [facility] Absolute neutrophil countOrd ered By: Geovanniprisca Sorto on 06-23-2025 Neutrophils (Bld) [#/Vol] 4.7 10*3/uL 2.0-7.7 [facility] Anion gap in Serum or Plasma Ordered By: Geovanniprisca Sorto on 06-23-2025 Anion gap [Moles/Vol] 8 mmol/L 01-14 [facility] Automated lymphocyte count a s percentage of total leukocytesOrdered By: Geovanni Sorto on 06-23-2025 Lymphocytes/100 WBC Auto (Unsp spec) 17.9 % Low 19- [facility] BUN/creatinine ratioOrdered By: Geovanni Sorto on 06-23-2025 Urea nitrogen/Creatinine [Mass ratio] 14.5 mg/mg 06-21 [facility] Basic Metabolic Profile (BMP )on 06-23-2025 BUN/CRE 14.5 RATIO Normal 06-21 [facility] Comment on above: Performed By: #### L 100.0100, L500.2500 ####[facility] [address] [place], [address] Calcium [Mass/Vol] 8.8 mg/dL Normal 7.6-11.0 [facility] Comment on above: Performed By: #### L 100.0100, L500.2500 ####[facility] [address] [place], [address] Chloride [Moles/Vol] 99 mmol/L Normal 98-108 [facility] Comment on above: Performed By: #### L 100.0100, L500.2500 ####[facility] [address] [place], [address] CO2 [Moles/Vol] 28.0 mmol/L Normal 21.0-32.0 [facility] Comment on above: Performed By: #### L 100.0100, L500.2500 ####[facility] [address] [place], [address] Creatinine [Mass/Vol] 1.04 mg/dL Normal 0.70-1.20 [facility] Comment on above: Performed By: #### L 100.0100, L500.2500 ####[facility] [address] [place], [address] ECRCL 53.99 ml/min Normal 50-250 [facility] Comment on above: Performed By: #### L 100.0100, L500.2500 ####[facility] [address] [place], [address] GAP 8 Normal 5-15 [facility] Comment on above: Performed By: #### L 100.0100, L500.2500 ####[facility] [address] [place], [address] GFR/1.73 sq M.predicted among non-blacks MDRD (S/P/Bld) [Vol rate/Area] 63 mL/min/{1.73_m2} Normal >60 [facility] Comment on above: Result Comment: mL/m in/1.73m2 CKD-EPI Creatinine Equation (2020) Performed By: #### L 100.0100, L500.2500 ####[facility] [address] [place], [address] Glucose [Mass/Vol] 92 mg/dL Normal 70-99 [facility] Comment on above: Performed By: #### L 100.0100, L500.2500 ####[facility] [address] [place], [address] Potassium [Moles/Vol] 3.5 mmol/L Normal 3.3-5.1 [facility] Comment on above: Performed By: #### L 100.0100, L500.2500 ####[facility] [address] [place], [address] Sodium [Moles/Vol] 135 mmol/L Normal 133-145 [facility] Comment on above: Performed By: #### L 100.0100, L500.2500 ####[facility] [address] [place], [address] Urea nitrogen [Mass/Vol] 15 mg/dL Normal 4-19 [facility] Comment on above: Performed By: #### L 100.0100, L500.2500 ####[facility] [address] [place], [address] Basophil percentageOrdered B y: Geovanni Sorto on 06-23-2025 Basophils/100 WBC (Bld) 0.3 % 0-1 [facility] Brain/Head without Contrasto n 06-23-2025 Brain/Head without Contrast [facility] Services [address] [place] [address] Brain/Head without Contrast MR#: [id number] Acct: [id number] Name: ALLIE LYNN Rep #: [id number] : 1970 F 55 From: Manish June MD PCP: Dr. Ifeoma Davis MD Status: REG ER Study: Brain/Head without Contrast Date of Exam: 06/03 10/27 Exam# [id number] Ordering Dr: Geovanni Sorto DO PROCEDURE: CT [...] subarachnoid spaces are normal in size. Absent circle ocular lenses. Intact skull base and calvarium. [...] or high-grade stenosis. No aneurysm. Reading Location: [id number] CC: Dr. Geovanni Sorto DO; Dr. Ifeoma Davis MD Gifted Program Teacher: Signed Normal [facility] CBC W/Diff, Automatedon - Absolute Lymph 1.25 X10 3/uL Normal 0.83-4.51 [facility] Comment on above: Performed By: #### L 100.0100, L500.2500 ####[facility] [address] [place], [address] Absolute Neut 4.7 X10 3/uL Normal 2.0-7.7 [facility] Comment on above: Performed By: #### L 100.0100, L500.2500 ####[facility] [address] [place], [address] Basophils/100 WBC (Bld) 0.3 % Normal 0-1 [facility] Comment on above: Performed By: #### L 100.0100, L500.2500 ####[facility] [address] [place], [address] Eosinophils/100 WBC (Bld) 2.4 % Normal 0-5 [facility] Comment on above: Performed By: #### L 100.0100, L500.2500 ####[facility] [address] [place], [address] Erythrocyte distribution width (RBC) [Ratio] 13.2 % Normal 11.6-14.6 [facility] Comment on above: Performed By: #### L 100.0100, L500.2500 ####[facility] [address] [place], [address] Hematocrit (Bld) [Volume fraction] 31.8 % Low 37-47 [facility] Comment on above: Performed By: #### L 100.0100, L500.2500 ####[facility] [address] [place], [address] Hemoglobin (Bld) [Mass/Vol] 10.4 g/dL Low 12.0-15.0 [facility] Comment on above: Performed By: #### L 100.0100, L500.2500 ####[facility] [address] [place], [address] IG% 0.300 Normal 0.0-0.9 [facility] Comment on above: Result Comment: IG% - Immature Granulocytes (promyelocytes, myelocytes and metamyelocytes) > 1% indicates that a LEFT SHIFT is Present. Performed By: #### L 100.0100, L500.2500 ####[facility] [address] [place], [address] Lymphocytes/100 WBC (Bld) 17.9 % Low 19-41 [facility] Comment on above: Performed By: #### L 100.0100, L500.2500 ####[facility] [address] [place], [address] MCH (RBC) [Entitic mass] 29.7 pg Normal 27.0-32.0 [facility] Comment on above: Performed By: #### L 100.0100, L500.2500 ####[facility] [address] [place], [address] MCHC (RBC) [Mass/Vol] 32.7 g/dL Normal 32-36 [facility] Comment on above: Performed By: #### L 100.0100, L500.2500 ####[facility] [address] [place], [address] MCV (RBC) [Entitic vol] 90.9 fL Normal 81-99 [facility] Comment on above: Performed By: #### L 100.0100, L500.2500 ####[facility] [address] [place], [address] Monocytes/100 WBC (Bld) 11.9 % High 0-10 [facility] Comment on above: Performed By: #### L 100.0100, L500.2500 ####[facility] [address] [place], [address] Neutrophils/100 WBC (Bld) 67.2 % Normal 47-70 [facility] Comment on above: Performed By: #### L 100.0100, L500.2500 ####[facility] [address] [place], [address] Nucleated RBC (Bld) [#/Vol] 0 10*3/uL Normal 0-5 [facility] Comment on above: Performed By: #### L 100.0100, L500.2500 ####[facility] [address] [place], [address] Platelet mean volume (Bld) [Entitic vol] 10.3 fL Normal 6.2-12.0 [facility] Comment on above: Performed By: #### L 100.0100, L500.2500 ####[facility] [address] [place], [address] Platelets (Bld) [#/Vol] 274 10*3/uL Normal 150-450 [facility] Comment on above: Performed By: #### L 100.0100, L500.2500 ####[facility] [address] [place], [address] RBC (Bld) [#/Vol] 3.50 10*6/uL Low 4.2-5.4 [facility] Comment on above: Performed By: #### L 100.0100, L500.2500 ####[facility] [address] [place], [address] RDW SD 43.8 fl Normal 35.1-43.9 [facility] Comment on above: Performed By: #### L 100.0100, L500.2500 ####[facility] [address] [place], [address] WBC (Bld) [#/Vol] 7.0 10*3/uL Normal 4.4-11.0 [facility] Comment on above: Performed By: #### L 100.0100, L500.2500 ####[facility] [address] [place], [address] CTA Head AND Neck W/ Contras ton 06-23-2025 CTA Head AND Neck W/ Contrast [facility] Imaging Services [address] [place] [address] CTA Head AND Neck W/ Contrast MR#: [id number] Acct: [id number] Name: ALLIE LYNN Rep #: [id number] : 1970 F 55 From: Manish June MD PCP: Dr. Ifeoma Davis MD Status: REG ER Study: CTA Head AND Neck W/ Contrast Date of Exam: Exam# [id number] Ordering Dr: Geovanni Sorto DO PROCEDURE: CT [...] subarachnoid spaces are normal in size. Absent circle ocular lenses. Intact skull base and calvarium. [...] or high-grade stenosis. No aneurysm. Reading Location: [facility] CC: Dr. Geovanni Sorto DO; Dr. Ifeoma Davis MD Gifted Program Teacher: Signed Normal [facility] Carbon dioxide, total [Moles /volume] in Central venous bloodOrdered By: Geovanni Sorto on 06-23-2025 CO2 [Moles/Vol] 28.0 mmol/L 21.0-32.0 [facility] Chloride assayOrdered By: Jeffrey Sorto on 06-23-2025 Chloride [Moles/Vol] 99 mmol/L 98-108 [facility] Emergency Department Summary on 06-23-2025 Emergency Department Summary [facility] Medical Records Department [address] [place] [address] Emergency Department Summary 06/23/25 MR#: [id number] Acct: [id number] Name: ALLIE LYNN ANN Rep #: [id number] : 1970 55 From: Geovanni Sorto DO [...] intact Psych: Cooperative, appropriate mood and affect [facility] Medical History (Updated 06/23/25 @ 20:[address] Geovanni Mera-Taz, DO) Wears glasses Depression Anxiety High cholesterol [...] SUPPLMENT 06/11/25 Unknown History cell-Bifido 25 billion tjys-TMX-omkfc capsule cevimeline 30 mg capsule 1 cap [...] bitartrate (Fro (more content not included)... Normal [facility] Eosinophil percentageOrdered By: Geovanni Sorto on 06-23-2025 Eosinophils/100 WBC (Bld) 2.4 % 0-5 [facility] Erythrocyte distribution wid th ratioOrdered By: Geovanni Sorto on 06-23-2025 Erythrocyte distribution width (RBC) [Ratio] 13.2 % 11.6-14.6 [facility] Erythrocyte distribution wid th standard deviationOrdered By: Geovanniprisca Mcghee on 06-23-2025 Erythrocyte distribution width (RBC) [Ratio] 43.8 fl 35.1-43.9 [facility] Glomerular filtration rate ( GFR) estimation/1.73 sq m using serum, plasma, or whole bOrdered By: Geovanniprisca Sorto on 06-23-2025 GFR/1.73 sq M.predicted among non-blacks MDRD (S/P/Bld) [Vol rate/Area] 63 mL/min/{1.73_m2} >60 [facility] Comment on above: mL/min/1.73m2 CKD-EP I Creatinine Equation (2020) Hematocrit Auto (Bld) [Volum e fraction]Ordered By: Geovanniprisca Sorto on 06-23-2025 Hematocrit (Bld) [Volume fraction] 31.8 % Low 37-47 [facility] Hemoglobin measurementOrdere d By: Geovanni Sorto on 06-23-2025 Hemoglobin (Bld) [Mass/Vol] 10.4 g/dL Low 12.0-15.0 [facility] Immature granulocytes/100 WB C Auto (Bld)Ordered By: Panama Noreen on 06-23-2025 Immature granulocytes/100 WBC (Bld) 0.300 % 0.0-0.9 [facility] Comment on above: IG% - Immature Granu locytes (promyelocytes, myelocytes and metamyelocytes) > 1% indicates that a LEFT SHIFT is Present. MCV (mean corpuscular volume ) determinationOrdered By: Geovanni Sorto on 06-23-2025 MCV (RBC) [Entitic vol] 90.9 fL 81-99 [facility] Mean corpuscular hemoglobin (MCH) determinationOrdered By: Geovanni Noreen on 06-23-2025 MCH (RBC) [Entitic mass] 29.7 pg 27.0-32.0 [facility] Mean corpuscular hemoglobin concentration (MCHC) determinationOrdered By: Geovanni Noreen on 06-23-2025 MCHC (RBC) [Mass/Vol] 32.7 g/dL 32-36 [facility] Mean platelet volume determi nationOrdered By: Geovanni Sorto on 06-23-2025 Platelet mean volume (Bld) [Entitic vol] 10.3 fL 6.2-12.0 [facility] Monocyte percentageOrdered B y: Geovanni Sorto on 06-23-2025 Monocytes/100 WBC (Bld) 11.9 % High 0-10 [facility] Neutrophil percentageOrdered By: Geovanni Sorto on 06-23-2025 Neutrophils/100 WBC (Bld) 67.2 % 47-70 [facility] Nucleated red blood cell per centageOrdered By: Geovanni Sorto on 06-23-2025 Nucleated RBC/100 WBC (Bld) [Ratio] 0 % 0-5 [facility] Platelet countOrdered By: Jeffrey Sorto on 06-23-2025 Platelets (Bld) [#/Vol] 274 10*3/uL 150-450 [facility] Potassium measurement (mass/ volume)Ordered By: Geovanni Sorto on 06-23-2025 Potassium (Unsp spec) [Mass/Vol] 3.5 mmol/L 3.3-5.1 [facility] RBC Auto (Bld) [#/Vol]Ordere d By: Geovanni Sorto on 06-23-2025 RBC (Bld) [#/Vol] 3.50 10*6/uL Low 4.2-5.4 [facility] Serum creatinine measurement (mass/volume)Ordered By: Geovanni Sorto on 06-23-2025 Creatinine [Mass/Vol] 1.04 mg/dL 0.70-1.20 [facility] Serum glucose measurement (m ass/volume)Ordered By: Geovanni Sorto on 06-23-2025 Glucose [Mass/Vol] 92 mg/dL 70-99 [facility] Serum or plasma calcium ross urement (mass/volume)Ordered By: Geovanni Mcghee on 06-23-2025 Calcium [Mass/Vol] 8.8 mg/dL 7.6-11.0 [facility] Serum or plasma urea nitroge n measurement (mass/volume)Ordered By: Geovanniprisca FuentesRaymond on 06-23-2025 Urea nitrogen [Mass/Vol] 15 mg/dL 4-19 [facility] Sodium levelOrdered By: Lee l HollisrustTaz on 06-23-2025 Sodium [Moles/Vol] 135 mmol/L 133-145 [facility] White blood cell (WBC) count Ordered By: Geovanni [facility] on 06-23-2025 WBC (Bld) [#/Vol] 7.0 10*3/uL 4.4-11.0 [facility] Extremity Lower without Cont raon 06-21-2025 Extremity Lower without Contra [facility] Services [address] [place] [address] Extremity Lower without Contra MR#: [id number] Acct: [id number] Name: ALLIE LYNN Rep #: [id number] : 1970 F 55 From: Grant Lora MD PCP: Dr. Ifeoma Davis MD Status: REG CLI Study: Extremity Lower without Contra Date of Exam: Exam# [id number] Ordering Dr: Phillip Pozo DO PROCEDURE: EXTREMITY [...] Ifeoma Davis MD; Dr. Phillip Pozo DO Gifted Program Teacher: Signed Normal [facility] Fructosamineon 06-19-2025 FRUCTOSAMINE 212 umol/L Normal 0-285 [facility] Comment on above: Result Comment: Publ ished reference interval for apparently healthy subjects between age 20 and 60 is 205 - 285 umol/L and in a poorly controlled diabetic population is 228 - 563 umol/L with a mean of 396 umol/L. Performed at: [address] [id number] Patient Care Associate: Regis Carballo PhD, Phone: [phone] Performed By: #### L 500.2500, L300.4310, L3400.0100, L501.5200, L501.9985, L300.3900, L100.0100 ####[facility] [address] [place], [place], [id number] MRSA/SAID NASAL SCREENon MRSA+SAID SCRN Reason for Exam: PREOP MRSA MRSA Negative S. AUREUS S. aureus Negative Normal [facility] Comment on above: Performed By: #### B TSPAT, M100.651 ####[facility] [address] [place], [address] CNPNon 06-18-2025 CNPN Normal [facility] Basic Metabolic Profile (BMP )on 06-17-2025 BUN/CRE 16.4 RATIO Normal - [facility] Comment on above: Performed By: #### L 500.2500, L300.4310, L3400.0100, L501.5200, L501.9985, L300.3900, L100.0100 ####[facility] [address] [place], [address] Calcium [Mass/Vol] 9.5 mg/dL Normal 7.6-11.0 [facility] Comment on above: Performed By: #### L 500.2500, L300.4310, L3400.0100, L501.5200, L501.9985, L300.3900, L100.0100 ####[facility] [address] [place], [address] Chloride [Moles/Vol] 101 mmol/L Normal 98-108 [facility] Comment on above: Performed By: #### L 500.2500, L300.4310, L3400.0100, L501.5200, L501.9985, L300.3900, L100.0100 ####[facility] [address] [place], [address] CO2 [Moles/Vol] 27.7 mmol/L Normal 21.0-32.0 [facility] Comment on above: Performed By: #### L 500.2500, L300.4310, L3400.0100, L501.5200, L501.9985, L300.3900, L100.0100 ####[facility] [address] [place], [address] Creatinine [Mass/Vol] 0.87 mg/dL Normal 0.70-1.20 [facility] Comment on above: Performed By: #### L 500.2500, L300.4310, L3400.0100, L501.5200, L501.9985, L300.3900, L100.0100 ####[facility] [address] [place], [address] GAP 11 Normal 5-15 [facility] Comment on above: Performed By: #### L 500.2500, L300.4310, L3400.0100, L501.5200, L501.9985, L300.3900, L100.0100 ####[facility] [address] [place], [address] GFR/1.73 sq M.predicted among non-blacks MDRD (S/P/Bld) [Vol rate/Area] 78 mL/min/{1.73_m2} Normal >60 [facility] Comment on above: Result Comment: mL/m in/1.73m2 CKD-EPI Creatinine Equation (2020) Performed By: #### L 500.2500, L300.4310, L3400.0100, L501.5200, L501.9985, L300.3900, L100.0100 ####[facility] [address] [place], [address] Glucose [Mass/Vol] 89 mg/dL Normal 70-99 [facility] Comment on above: Performed By: #### L 500.2500, L300.4310, L3400.0100, L501.5200, L501.9985, L300.3900, L100.0100 ####[facility] [address] [place], [address] Potassium [Moles/Vol] 4.3 mmol/L Normal 3.3-5.1 [facility] Comment on above: Performed By: #### L 500.2500, L300.4310, L3400.0100, L501.5200, L501.9985, L300.3900, L100.0100 ####[facility] [address] [place], [address] Sodium [Moles/Vol] 140 mmol/L Normal 133-145 [facility] Comment on above: Performed By: #### L 500.2500, L300.4310, L3400.0100, L501.5200, L501.9985, L300.3900, L100.0100 ####[facility] [address] [place], [address] Urea nitrogen [Mass/Vol] 14 mg/dL Normal 4-19 [facility] Comment on above: Performed By: #### L 500.2500, L300.4310, L3400.0100, L501.5200, L501.9985, L300.3900, L100.0100 ####[facility] [address] [place], [address] Brain/Head without Contrasto n 06-17-2025 Brain/Head without Contrast [facility] Imaging Services [address] [place] [address] Brain/Head without Contrast MR#: [id number] Acct: [id number] Name: ALLIE LYNN Rep #: [id number] : 1970 F 55 From: Manish June MD PCP: Dr. Ifeoma Davis MD Status: REG ER Study: Brain/Head without Contrast Date of Exam: 06/02 02/24 Exam# [id number] Ordering Dr: Patti Piña DO PROCEDURE: CT [...] subarachnoid spaces are normal in size. Absent circle ocular lenses. Intact skull base and calvarium. [...] provider Patti Piña 06/17/2025 at 6 p.m. MATHEMATICAL STATISTICIAN. Reading Location: [facility] CC: Dr. Ifeoma Davis MD; Dr. Patti Piña, DO Gifted Program Teacher: Signed Normal [facility] CBC W/Diff, Automatedon 10- Absolute Lymph 0.96 X10 3/uL Normal 0.83-4.51 [facility] Comment on above: Performed By: #### L 500.2500, L300.4310, L3400.0100, L501.5200, L501.9985, L300.3900, L100.0100 ####[facility] [address] [place], [place], [address] Absolute Neut 5.1 X10 3/uL Normal 2.0-7.7 [facility] Comment on above: Performed By: #### L 500.2500, L300.4310, L3400.0100, L501.5200, L501.9985, L300.3900, L100.0100 ####[facility] [address] [place], [address] Basophils/100 WBC (Bld) 0.6 % Normal 0-1 [facility] Comment on above: Performed By: #### L 500.2500, L300.4310, L3400.0100, L501.5200, L501.9985, L300.3900, L100.0100 ####[facility] [address] [place], [address] Eosinophils/100 WBC (Bld) 1.9 % Normal 0-5 [facility] Comment on above: Performed By: #### L 500.2500, L300.4310, L3400.0100, L501.5200, L501.9985, L300.3900, L100.0100 ####[facility] [address] [place], [address] Erythrocyte distribution width (RBC) [Ratio] 13.2 % Normal 11.6-14.6 [facility] Comment on above: Performed By: #### L 500.2500, L300.4310, L3400.0100, L501.5200, L501.9985, L300.3900, L100.0100 ####[facility] [address] [place], [address] Hematocrit (Bld) [Volume fraction] 38.6 % Normal 37-47 [facility] Comment on above: Performed By: #### L 500.2500, L300.4310, L3400.0100, L501.5200, L501.9985, L300.3900, L100.0100 ####[facility] [address] [place], [address] Hemoglobin (Bld) [Mass/Vol] 12.3 g/dL Normal 12.0-15.0 [facility] Comment on above: Performed By: #### L 500.2500, L300.4310, L3400.0100, L501.5200, L501.9985, L300.3900, L100.0100 ####[facility] [address] [place], [address] IG% 0.400 Normal 0.0-0.9 [facility] Comment on above: Result Comment: IG% - Immature Granulocytes (promyelocytes, myelocytes and metamyelocytes) > 1% indicates that a LEFT SHIFT is Present. Performed By: #### L 500.2500, L300.4310, L3400.0100, L501.5200, L501.9985, L300.3900, L100.0100 ####[facility] [address] [place], [address] Lymphocytes/100 WBC (Bld) 13.9 % Low 19-41 [facility] Comment on above: Performed By: #### L 500.2500, L300.4310, L3400.0100, L501.5200, L501.9985, L300.3900, L100.0100 ####[facility] [address] [place], [address] MCH (RBC) [Entitic mass] 29.6 pg Normal 27.0-32.0 [facility] Comment on above: Performed By: #### L 500.2500, L300.4310, L3400.0100, L501.5200, L501.9985, L300.3900, L100.0100 ####[facility] [address] [place], [address] MCHC (RBC) [Mass/Vol] 31.9 g/dL Low 32-36 [facility] Comment on above: Performed By: #### L 500.2500, L300.4310, L3400.0100, L501.5200, L501.9985, L300.3900, L100.0100 ####[facility] [address] [place], [address] MCV (RBC) [Entitic vol] 92.8 fL Normal 81-99 [facility] Comment on above: Performed By: #### L 500.2500, L300.4310, L3400.0100, L501.5200, L501.9985, L300.3900, L100.0100 ####[facility] [address] [place], [address] Monocytes/100 WBC (Bld) 9.4 % Normal 0-10 [facility] Comment on above: Performed By: #### L 500.2500, L300.4310, L3400.0100, L501.5200, L501.9985, L300.3900, L100.0100 ####[facility] [address] [place], [address] Neutrophils/100 WBC (Bld) 73.8 % High 47-70 [facility] Comment on above: Performed By: #### L 500.2500, L300.4310, L3400.0100, L501.5200, L501.9985, L300.3900, L100.0100 ####[facility] [address] [place], [address] Nucleated RBC (Bld) [#/Vol] 0 10*3/uL Normal 0-5 [facility] Comment on above: Performed By: #### L 500.2500, L300.4310, L3400.0100, L501.5200, L501.9985, L300.3900, L100.0100 ####[facility] [address] [place], [address] Platelet mean volume (Bld) [Entitic vol] 10.5 fL Normal 6.2-12.0 [facility] Comment on above: Performed By: #### L 500.2500, L300.4310, L3400.0100, L501.5200, L501.9985, L300.3900, L100.0100 ####[facility] [address] [place], [address] Platelets (Bld) [#/Vol] 332 10*3/uL Normal 150-450 [facility] Comment on above: Performed By: #### L 500.2500, L300.4310, L3400.0100, L501.5200, L501.9985, L300.3900, L100.0100 ####[facility] [address] [place], [address] RBC (Bld) [#/Vol] 4.16 10*6/uL Low 4.2-5.4 [facility] Comment on above: Performed By: #### L 500.2500, L300.4310, L3400.0100, L501.5200, L501.9985, L300.3900, L100.0100 ####[facility] [address] [place], [address] RDW SD 45.3 fl High 35.1-43.9 [facility] Comment on above: Performed By: #### L 500.2500, L300.4310, L3400.0100, L501.5200, L501.9985, L300.3900, L100.0100 ####[facility] [address] [place], [address] WBC (Bld) [#/Vol] 6.9 10*3/uL Normal 4.4-11.0 [facility] Comment on above: Performed By: #### L 500.2500, L300.4310, L3400.0100, L501.5200, L501.9985, L300.3900, L100.0100 ####[facility] [address] [place], [address] CTA Head AND Neck W/ Contras ton 06-17-2025 CTA Head AND Neck W/ Contrast [facility] Imaging Services [address] [place] [address] CTA Head AND Neck W/ Contrast MR#: [id number] Acct: [id number] Name: ALLIE LYNN Rep #: [id number] : 1970 F 55 From: Manish June MD PCP: Dr. Ifeoma Davis MD Status: REG ER Study: CTA Head AND Neck W/ Contrast Date of Exam: Exam# [id number] Ordering Dr: Patti Piña DO PROCEDURE: CT [...] subarachnoid spaces are normal in size. Absent circle ocular lenses. Intact skull base and calvarium. [...] provider Patti Piña 06/17/2025 at 6 p.m. MATHEMATICAL STATISTICIAN. Reading Location: [facility] CC: Dr. Ifeoma Davis MD; Dr. Patti Piña DO Gifted Program Teacher: Signed Normal [facility] Emergency Department Summary on 06-17-2025 Emergency Department Summary [facility] Medical Records Department [address] [place] [address] Emergency Department Summary 06/17/25 MR#: [id number] Acct: [id number] Name: ALLIE LYNN Rep #: [id number] : 1970 55 From: Patti Piña DO PCP: Dr. Ifeoma Davis MD Status:[facility] ER Location: ED HPI History of Present [...] too high risk to have the surgery. [facility] Medical History (Updated 06/17/25 @ 19:32 by [...] SUPPLMENT 06/11/25 Unknown History cell-Bifido 25 billion bltq-QNK-mjwtl capsule cevimeline 30 mg capsule 1 cap [...] cancer Surgi (more content not included)... Normal [facility] Hemoglobin A1con 06-17-2025 HbA1c (Bld) [Mass fraction] 5.6 % Normal <=5.6 [facility] Comment on above: Result Comment: Norm al < 5.7 % Prediabetic 5.7 - 6.4 % Diabetic >or= 6.5 % Please note range changes. Performed By: #### L 500.2500, L300.4310, L3400.0100, L501.5200, L501.9985, L300.3900, L100.0100 ####[facility] [address] [place], [address] MR/PAT.MARYon 06-17-2025 MR/PAT.MARY [facility] Medical Records Department [address] [place] [address] PAT - Anesthesia 06/17/25 1528 MR#: [id number] Acct: [id number] Name: ALLIE LYNN ANN Rep #: [id number] : 1970 55 From: Rusty Guerrero MD PCP: Dr. 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 Female Yes 06/11/25 13:38 HX of Motion [...] 06/03/25 15:26 Respiratory Assessment Respiratory Assessment - 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: Respiratory Tract Infection Hx - 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 Hx Respiratory Tract Infection No 06/11/25 13:38 STOP Sleep Apnea STOP Sleep Apnea - 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: STOP Sleep Apnea - 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 Hx Hypertension Yes 06/11/25 13:38 Hx Sleep [...] Tobacco Use History 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: 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 Tobacco Use Smoking Status Never smoker 06/11/25 13:38 Hx Tobacco Use No 06/11/25 13:38 Years Smoking Packs Smoked per Day Smoking Cessation Date was within the last 15 years Hx Smoking Cessation Date Hx Smoking Cessation Counseling Hematologic Medial History Hematologic Hx - 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 Normal [facility] Magnesiumon 06-17-2025 Magnesium [Mass/Vol] 2.1 mg/dL Normal 1.5-2.2 [facility] Comment on above: Performed By: #### L 500.2500, L300.4310, L3400.0100, L501.5200, L501.9985, L300.3900, L100.0100 ####[facility] [address] [place], [address] Partial Thromboplast Timeon 06-17-2025 aPTT Coag (Bld) [Time] 24.0 s Low 24.1-36.2 [facility] Comment on above: Performed By: #### L 500.2500, L300.4310, L3400.0100, L501.5200, L501.9985, L300.3900, L100.0100 ####[facility] [address] [place], [place], [address] Prothrombin Time w/INRon INR Coag (PPP) [Relative time] 0.9 {INR} Normal [facility] Comment on above: Performed By: #### L 500.2500, L300.4310, L3400.0100, L501.5200, L501.9985, L300.3900, L100.0100 ####[facility] [address] [place], [address] PT Coag (PPP) [Time] 12.5 s Normal 11.7-14.9 [facility] Comment on above: Performed By: #### L 500.2500, L300.4310, L3400.0100, L501.5200, L501.9985, L300.3900, L100.0100 ####[facility] [address] [place], [address] Type AND Screen - PAT ONLYon 06-17-2025 Ab SCREEN GEL Negative Normal [facility] Comment on above: Order Comment: Reaso n for Laboratory Test [id number] REPLACEMENT Performed By: #### B TSPAT, M100.651 ####[facility] [address] [place], [address] CNPNon 06-14-2025 CNPN Normal [facility] CNPNon 06-10-2025 CNPN Normal [facility] HIP, UNI W/ Pelvis 2-3 Views on 06-04-2025 HIP, UNI W/ Pelvis 2-3 Views [facility] Imaging Services [address] [place] [address] HIP, UNI W/ Pelvis 2-3 Views MR#: [id number] Acct: [id number] Name: ALLIE LYNN Rep #: [id number] : 1970 F 55 From: Don Sampson PCP: Dr. Ifeoma Davis MD Status: DEP AMB Study: HIP, UNI W/ Pelvis 2-3 Views Date of Exam: 11/24 Exam# [id number] Ordering Dr: Phillip Pozo DO PROCEDURE: HIP, [...] fracture or dislocation is seen. Reading Location: [place] [address] CC: Dr. Ifeoma Davis MD; Dr. Phillip Pozo DO Gifted Program Teacher: Signed Normal [facility] Orthopedic Visit Reporton Orthopedic Visit Report [facility] [address] [place] [address] OFFICE VISIT Date of Service: 06/04/25 MR#: [id number] Acct: [id number] Name: ALLIE LYNN Rep #: [id number] : 1970 Provider: Dr. 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 Normal [facility] Orthopedic Visit Reporton Orthopedic Visit Report [facility] [address] [place] [address] [address] [place] [address] OFFICE VISIT Date of Service: 06/03/25 MR#: [id number] Acct: [id number] Name: ALLIE LYNN Rep #: [id number] : 1970 Provider: Dr. Michael Cameron MD Age/Sex: 55/F Location: [facility] Status: Signed Intake Vital [...] QDAY 12/09/24 06/03/25 H istory omega-3 720 to-res-lax-fish cap PO 12/09/24 06/03/25 History oil-vit D3 [...] you fallen in the past year?: Yes [facility] Medical History Hip arthritis Degenerative [...] documented by Sukhjinder Tinoco MA and Cande Vidla RN, acting as scribe. ALLIE LYNN is [...] leg. Doi (more content not included)... Normal [facility] CNOVon 05-27-2025 CNOV Normal [facility] Emergency Department Summary on 05-27-2025 Emergency Department Summary [facility] Medical Records Department [address] [place] [address] Emergency Department Summary 05/27/25 MR#: [id number] Acct: [id number] Name: ALLIE LYNN Rep #: [id number] : 1970 55 From: Juan Manuel Turpin [...] symptoms: No Recent Illness/Hospitalizati on: No PFSH [facility] Medical History Hip arthritis Degenerative [...] QDAY 12/09/24 Unknown Hi story omega-3 720 xi-jwz-dme-fish cap PO 12/09/24 Unknown History oil-vit D3 [...] Respiratory/Chest Respiratory/Ch (more content not included)... Normal [facility] Lipid 1996 panelon 5 Cholesterol [Mass/Vol] 144 mg/dL Normal <200 [facility] Comment on above: Order Comment: Speci men Type: BLOOD SPECIMENOrdering Facility: [facility] Address: [address] [place] [address] Result Comment: <200 mg/dL, Desirable 200-239 mg/dL, Borderline high>239 mg/dL, High Performed By: #### 2 4331-1 ####[facility] LABIA [id number] [address] STATES OF [facility] Cholesterol in HDL [Mass/Vol] 53 mg/dL Normal >39 [facility] Comment on above: Order Comment: Speci men Type: BLOOD SPECIMENOrdering Facility: [facility] Address: [address] [place] [address] Result Comment: 40-5 9 mg/dL, Acceptable>59 mg/dL, High: Negative risk factor for coronary heart disease<40 mg/dL, Low: Positive risk factor for coronary heart disease Performed By: #### 2 4331-1 ####[facility] LABCLIA [id number] [address] [place] Cholesterol in LDL [Mass/Vol] 73 mg/dL Normal <100 [facility] Comment on above: Order Comment: Speci men Type: BLOOD SPECIMENOrdering Facility: [facility] Address: [address] [place] [address] Result Comment: <100 mg/dL, Optimal 100-129 mg/dL, Near optimal/above optimal 130-159 mg/dL, Borderline high 160-189 mg/dL, High>189 mg/dL, Very highSecondary prevention optimal LDL Cholesterol levels are recommended to be <70 mg/dLLDL cholesterol is calculated using the Miranda-NIH equation. Performed By: #### 2 4331-1 ####[facility] LABIA [id number] [place] [address] [place] Cholesterol in LDL/Cholesterol in HDL [Mass ratio] 1.38 {ratio} Normal <2.54 [facility] Comment on above: Order Comment: Altafi men Type: BLOOD SPECIMENOrdering Facility: [facility] Address: [address] [place] [address] Result Comment: Refe rence:1. National Cholesterol Education Program ATP III Guideline At-A-Glance Quick Desk Reference: National Heart, Lung, and Blood [place]. National Institutes of Health. 2001: NIH Publication No. 01-3305.2. An International Atherosclerosis Society position paper: global recommendations for the management of dyslipidemia: executive summary, Atherosclerosis. 2014: 232(2):410-413. Performed By: #### 2 4331-1 ####[facility] LABIA [id number] [place] [address] [place] Cholesterol in VLDL [Mass/Vol] 14 mg/dL Normal <30 [facility] Comment on above: Order Comment: Brandan eaton Type: BLOOD SPECIMENOrdering Facility: [facility] Address: [address] [place] [address] Performed By: #### 2 4331-1 ####[facility] LABIA [id number] [place] [id number] [place] Cholesterol non HDL [Mass/Vol] 91 mg/dL Normal <130 [facility] Comment on above: Order Comment: Brandan angelito Type: BLOOD SPECIMENOrdering Facility: [facility] Address: [address] [place] [address] Result Comment: <130 mg/dL, Optimal 130-159 mg/dL, Near optimal/above optimal 160-189 mg/dL, Borderline high 190-219 mg/dL, High>219 mg/dL, Very highSecondary prevention optimal non HDL Cholesterol levels are recommended to be <100 mg/dL Performed By: #### 2 4331-1 ####[facility] LABCLIA [id number] [place] [id number] [place] Cholesterol.total/Choles terol in HDL [Mass ratio] 2.72 {ratio} Normal <5.10 [facility] Comment on above: Order Comment: Speci men Type: BLOOD SPECIMENOrdering Facility: [facility] Address: [address] [place] [address] Performed By: #### 2 4331-1 ####[facility] LABIA [id number] [place] [id number] [place] FASTING TIME 13 hrs Normal [facility] Comment on above: Order Comment: Speci men Type: BLOOD SPECIMENOrdering Facility: [facility] Address: [address] [place] [address] Performed By: #### 2 4331-1 ####[facility] LABIA [id number] [place] [id number] [place] Triglyceride [Mass/Vol] 96 mg/dL Normal <150 [facility] Comment on above: Order Comment: Speci men Type: BLOOD SPECIMENOrdering Facility: [facility] Address: [address] [place] [address] Result Comment: <150 mg/dL, Normal 150-199 mg/dL, Borderline high 200-499 mg/dL, High>499 mg/dL, Very high Performed By: #### 2 4331-1 ####[facility] LABIA [id number] [place] [id number] [place] CNPNon 05-17-2025 CNPN Normal [facility] Magnetic resonance imaging r eportOrdered By: Brittaney Barth on 05-10-2025 Study report [facility] Imaging Services [address] [place], [place] [address] Spine Lumbar (Routine) MR#: [id number] Acct: [id number] Name: ALLIE LYNN Rep #: [id number] : 1970 F 55 From: Shaan Barth MD PCP: Dr. Ifeoma Davis MD Status: REG C WALLY Study:Spine Lumbar (Routine) Date of Exam: 05/07/25 Exam# [id number] Ordering Dr: Shauna Cameron MD PROCEDURE: SPINE [...] L1-2 with associated central stenosis. Reading Location: [facility] CC: Dr. Micahel Cameron MD; Dr. Ifeoma Davis MD ~ Gifted Program Teacher: Signed [facility] Spine Lumbar (Routine)on Spine Lumbar (Routine) [facility] Imaging Services [address] [place] [address] Spine Lumbar (Routine) MR#: [id number] Acct: [id number] Name: ALLIE LYNN Rep #: [id number] : 1970 F 55 From: Brittaney stacy MD PCP: Dr. Ifeoma Davis MD Status: REG CLI Study: Spine Lumbar (Routine) Date of Exam: 05/07/25 Exam# [id number] Ordering Dr: Michael Cameron MD PROCEDURE: SPINE [...] L1-2 with associated central stenosis. Reading Location: [facility] CC: Dr. Michael Cameron MD; Dr. Ifeoma Davis MD Gifted Program Teacher: Signed [facility] CNPNon 04-28-2025 CNPN Normal [facility] CNOVon 04-22-2025 CNOV Normal [facility] CNPNon 04-22-2025 CNPN Normal [facility] L/S Spine Bending Flex/Sequim 04-16-2025 L/S Spine Bending Flex/Ext [facility] Imaging Services [address] [place] [address] L/S Spine Bending Flex/Ext MR#: [id number] Acct: [id number] Name: ALLIE LYNN Rep #: [id number] : 1970 F 54 From: Alan Perales MD PCP: Dr. Ifeoma Davis MD Status: DEP AMB Study: L/S Spine Bending Flex/Ext Date of Exam: 04/16 Exam# [id number] Ordering Dr: Sarah Pino PROCEDURE: L/S SPINE [...] pronounced at L3-4. Multilevel spondylolisthesis. Reading Location: [facility] CC: KENA Perkins; Dr. Ifeoma Davis MD Gifted Program Teacher: Signed [facility] Orthopedic Visit Reporton Orthopedic Visit Report [facility] [address] [place] [address] OFFICE VISIT Date of Service: 04/16/25 MR#: [id number] Acct: [id number] Name: ALLIE LYNN Rep #: [id number] : 1970 Provider: Dr. Michael Cameron MD Age/Sex: 54/F [place] [facility] [place] Status: Signed Intake Vital [...] QDAY 12/09/24 04/16/25 H istory omega-3 720 yi-hjg-rol-fish cap PO 12/09/24 04/16/25 History oil-vit D3 [...] by me, Dr. Michael Cameron MD 04/16/25 8017. 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 She has became more of a fall risk due to the pain and stiffness. She does have weakness in her left leg and primarily uses the right leg to lead especially when going up steps. Dr. Betancourt did prescribe her Percocet yesterday for rosanne (more content not included)... Normal [facility] CNOVon 04-11-2025 CNOV Normal [facility] CNPNon 04-03-2025 CNPN Normal [facility] CNPNon 03-31-2025 CNPN Normal [facility] CNPNon 03-30-2025 CNPN Normal [facility] CNPNon 03-26-2025 CNPN Normal [facility] ANES POSTPROC EVALon 025 ANES POSTPROC EVAL Normal [facility] ANES PRE-OPon 03-25-2025 ANES PRE-OP Normal [facility] OPERATIVE NOon 03-25-2025 OPERATIVE NO Normal [facility] Basic metabolic 2000 panelOr dered By: Mahsa Aponte on 03-24-2025 Anion gap [Moles/Vol] 12 mmol/L 8 - 15 mmol/L [facility] Calcium [Mass/Vol] 9.6 mg/dL 8.5 - 10. 2 mg/dL [facility] Chloride [Moles/Vol] 99 mmol/L 98 - 10 7 mmol/L [facility] CO2 [Moles/Vol] 25 mmol/L 22 - 30 mmol/L [facility] Creatinine [Mass/Vol] 0.99 mg/dL High 0.58 - 0.96 mg/dL [facility] GFR/1.73 sq M.predicted among non-blacks MDRD (S/P/Bld) [Vol rate/Area] 67 mL/min/{1.73_m2} - PINF [facility] Comment on above: Estimated Glomerular Filtration [...] [Mass/Vol] 94 mg/dL 74 - 99 mg/dL [facility] Comment on above: The [place] Diabete s Association (ADA) provides guidance for [...] Standards of Medical Care in Diabetes 2016, [place] Diabetes Association. Diabetes Care. 2016.39(Suppl 1). Interpretation and review of laboratory results Abnormal [facility] Potassium [Moles/Vol] 4.1 mmol/L 3.7 - 5.1 mmol/L [facility] Sodium [Moles/Vol] 136 mmol/L 136 - 144 mmol/L [facility] Urea nitrogen [Mass/Vol] 20 mg/dL 7 - 21 mg/d L [facility] Basic metabolic 2000 panelon 03-24-2025 Anion gap [Moles/Vol] 12 mmol/L Normal 8-15 [facility] Comment on above: Order Comment: Speci men Type: BLOOD SPECIMENOrdering Facility: [facility] Address: [address] [place], [place] [address] Performed By: #### 2 4321-2 ####[facility] HOSPITALNCLIA [id number] [place] [address] [place] Calcium [Mass/Vol] 9.6 mg/dL Normal 8.5-10.2 [facility] Comment on above: Order Comment: Speci men Type: BLOOD SPECIMENOrdering Facility: [facility] Address: [address] [place] [address] Performed By: #### 2 4321-2 ####[facility] HOS[facility]ITALNCST. [facility] [id number] [place] [address] [place] Chloride [Moles/Vol] 99 mmol/L Normal 98-107 [facility] Comment on above: Order Comment: Speci men Type: BLOOD SPECIMENOrdering Facility: [facility] Address: [address] [place] [address] Performed By: #### 2 4321-2 ####[facility] [id number] [place] [address] [place] CO2 [Moles/Vol] 25 mmol/L Normal 22-30 [facility] Comment on above: Order Comment: Speci men Type: BLOOD SPECIMENOrdering Facility: [facility] Address: [address] [place] [address] Performed By: #### 2 4321-2 ####[facility] HOSPITALNCA [id number] [place] [address] [place] Creatinine [Mass/Vol] 0.99 mg/dL High 0.58-0.96 [facility] Comment on above: Order Comment: Speci men Type: BLOOD SPECIMENOrdering Facility: [facility] Address: [address] [place], [place] [address] Performed By: #### 2 4321-2 ####[facility] HOSPITALWNCLIA [id number] [place] [address] [place] eGFRcr SerPlBld CKD-EPI 2020 67 mL/min/1.73m??? Normal >=60 [facility] Comment on above: Order Comment: Brandan eaton Type: BLOOD SPECIMENOrdering Facility: [facility] Address: [address] [place] [address] Result Comment: Zaria mated Glomerular Filtration Rate [...] actual GFR. Performed By: #### 2 4321-2 ####[facility] CENTERLIA [id number] [place] [address] [place] Glucose [Mass/Vol] 94 mg/dL Normal 74-99 [facility] Comment on above: Order Comment: Brandan eaton Type: BLOOD SPECIMENOrdering Facility: [facility] Address: [address] [place] [address] Result Comment: The [place] Diabetes Association (ADA) provides guidance for cutoff [...] Standards of Medical Care in Diabetes 2016, [place] Diabetes Association. Diabetes Care. 2016.39(Suppl 1). Performed By: #### 2 4321-2 ####[facility] [id number] [place] [address] [place] Potassium [Moles/Vol] 4.1 mmol/L Normal 3.7-5.1 [facility] Comment on above: Order Comment: Speci men Type: BLOOD SPECIMENOrdering Facility: [facility] Address: [address] [place] [address] Performed By: #### 2 4321-2 ####[facility] JAIDENGRAHAMROS [id number] [place] [address] [place] Sodium [Moles/Vol] 136 mmol/L Normal 136-144 [facility] Comment on above: Order Comment: Speci men Type: BLOOD SPECIMENOrdering Facility: [facility] Address: [address] [place] [address] Performed By: #### 2 4321-2 ####[facility] JAIDENGRAHAMJOSSELINELIA [id number] [place] [address] [place] Urea nitrogen [Mass/Vol] 20 mg/dL Normal 7-21 [facility] Comment on above: Order Comment: Speci men Type: BLOOD SPECIMENOrdering Facility: [facility] Address: [address] [place] [address] Performed By: #### 2 4321-2 ####[facility] JAIDENWJOSSELINELIA [id number] [place] [address] [place] CBC W Auto Differential pane l (Bld)on 03-24-2025 Basophils (Bld) [#/Vol] 0.05 10*3/uL [facility] Basophils/100 WBC (Bld) 0.6 % C [facility] Differential cell count method Nom (Bld) Auto [facility] Eosinophils (Bld) [#/Vol] 0.23 10*3/uL [facility] Eosinophils/100 WBC (Bld) 2.9 % [facility] Erythrocyte distribution width (RBC) [Ratio] 12.7 % 11.5 - 15.0 % [facility] Hematocrit (Bld) [Volume fraction] 36.8 % 36.0 - 46.0 % [facility] Hemoglobin (Bld) [Mass/Vol] 12.1 g/dL 11.5 - 15.5 g/dL [facility] Immature granulocytes (Bld) [#/Vol] 0.04 10*3/uL [facility] Immature granulocytes/100 WBC (Bld) 0.5 % [facility] Lymphocytes (Bld) [#/Vol] 1.31 10*3/uL [facility] Lymphocytes/100 WBC (Bld) 16.7 % [facility] MCH (RBC) [Entitic mass] 29.9 pg 26. 0 - 34.[address] [facility] MCHC (RBC) [Mass/Vol] 32.9 g/dL 30.5 - 36.0 g/dL [facility] MCV (RBC) [Entitic vol] 90.9 fL 80.0 - 100.[address] [facility] Monocytes (Bld) [#/Vol] 0.85 10*3/uL [facility] Monocytes/100 WBC (Bld) 10.8 % [facility] Neutrophils (Bld) [#/Vol] 5.38 10*3/uL [facility] Neutrophils/100 WBC (Bld) 68.5 % [facility] Nucleated RBC (Bld) [#/Vol] [facility] Nucleated RBC/100 WBC (Bld) [Ratio] 0 % /[address] [facility] Platelet mean volume (Bld) [Entitic vol] 9.8 fL 9.0 - 12.[address] [facility] Platelets (Bld) [#/Vol] 375 10*3/uL [facility] RBC (Bld) [#/Vol] 4.05 10*6/uL 3.90 - 5.2 0 m/uL [facility] WBC (Bld) [#/Vol] 7.86 10*3/uL [facility] Basophils (Bld) [#/Vol] 0.05 10*3/uL Normal <0.11 [facility] Comment on above: Order Comment: Speci men Type: BLOOD SPECIMENOrdering Facility: [facility] Address: [address] [place] [address] Performed By: #### 5 7021-8 ####[facility] MILLTOWNCLIA [id number] [place] [address] [place] Basophils/100 WBC (Bld) 0.6 % Normal [facility] Comment on above: Order Comment: Speci men Type: BLOOD SPECIMENOrdering Facility: [facility] Address: [address] [place] [address] Performed By: #### 5 7021-8 ####[facility] JAIDENWJOSSELINELIA [id number] [place] [address] [place] Differential cell count method Nom (Bld) Auto Normal [facility] Comment on above: Order Comment: Speci men Type: BLOOD SPECIMENOrdering Facility: [facility] Address: [address] [place] [address] Performed By: #### 5 7021-8 ####[facility] JAIDENCHONLIA [id number] [place] [address] [place] Eosinophils (Bld) [#/Vol] 0.23 10*3/uL Normal <0.46 [facility] Comment on above: Order Comment: Speci men Type: BLOOD SPECIMENOrdering Facility: [facility] Address: [address] [place] [address] Performed By: #### 5 7021-8 ####[facility] JAIDENKingsleyJOSSELINELIA [id number] [place] [address] [place] Eosinophils/100 WBC (Bld) 2.9 % Normal [facility] Comment on above: Order Comment: Speci men Type: BLOOD SPECIMENOrdering Facility: [facility] Address: [address] [place] [address] Performed By: #### 5 7021-8 ####[facility] JAIDENGRAHAMNCLIA [id number] [place] [address] [place] Erythrocyte distribution width (RBC) [Ratio] 12.7 % Normal 11.5-15.0 [facility] Comment on above: Order Comment: Speci men Type: BLOOD SPECIMENOrdering Facility: [facility] Address: [address] [place] [address] Performed By: #### 5 7021-8 ####[facility] BARBARA SALGADONCMYRNA [id number] [place] [address] [place] Hematocrit (Bld) [Volume fraction] 36.8 % Normal 36.0-46.0 [facility] Comment on above: Order Comment: Speci men Type: BLOOD SPECIMENOrdering Facility: [facility] Address: [address] [place] [address] Performed By: #### 5 7021-8 ####[facility] HOSPITALNCWALLYA [id number] [place] [address] [place] Hemoglobin (Bld) [Mass/Vol] 12.1 g/dL Normal 11.5-15.5 [facility] Comment on above: Order Comment: Speci men Type: BLOOD SPECIMENOrdering Facility: [facility] Address: [address] [place] [address] Performed By: #### 5 7021-8 ####[facility] HOSPITALNCLIA [id number] [place] [address] [place] Immature granulocytes (Bld) [#/Vol] 0.04 10*3/uL Normal <0.10 [facility] Comment on above: Order Comment: Speci men Type: BLOOD SPECIMENOrdering Facility: [facility] Address: [address] [place] [address] Performed By: #### 5 7021-8 ####[facility] HOSPITALNCLIA [id number] [place] [address] [place] Immature granulocytes/100 WBC (Bld) 0.5 % Normal [facility] Comment on above: Order Comment: Speci men Type: BLOOD SPECIMENOrdering Facility: [facility] Address: [address] [place] [address] Performed By: #### 5 7021-8 ####[facility] MILLWNCLIA [id number] [place] [address] [place] Lymphocytes (Bld) [#/Vol] 1.31 10*3/uL Normal 1.00-4.00 [facility] Comment on above: Order Comment: Speci men Type: BLOOD SPECIMENOrdering Facility: [facility] Address: [address] [place] [address] Performed By: #### 5 7021-8 ####[facility] HOSPITALNCLIA [id number] [place] [address] [place] Lymphocytes/100 WBC (Bld) 16.7 % Normal [facility] Comment on above: Order Comment: Speci men Type: BLOOD SPECIMENOrdering Facility: [facility] Address: [address] [place] [address] Performed By: #### 5 7021-8 ####[facility] HOSPITALNCLIA [id number] [place] [address] [place] MCH (RBC) [Entitic mass] 29.9 pg Normal 26.0-34.0 [facility] Comment on above: Order Comment: Speci men Type: BLOOD SPECIMENOrdering Facility: [facility] Address: [address] [place] [address] Performed By: #### 5 7021-8 ####[facility] HOSPITALNCLIA [id number] [place] [address] [place] MCHC (RBC) [Mass/Vol] 32.9 g/dL Normal 30.5-36.0 [facility] Comment on above: Order Comment: Speci men Type: BLOOD SPECIMENOrdering Facility: [facility] Address: [address] [place] [address] Performed By: #### 5 7021-8 ####[facility] CENTERLIA [id number] [place] [address] [place] MCV (RBC) [Entitic vol] 90.9 fL Normal 80.0-100.0 C [facility] Comment on above: Order Comment: Speci men Type: BLOOD SPECIMENOrdering Facility: [facility] Address: [address] [place] [address] Performed By: #### 5 7021-8 ####[facility] P[facility] RIDGEA [id number] [place] [address] [place] Monocytes (Bld) [#/Vol] 0.85 10*3/uL Normal <0.87 [facility] Comment on above: Order Comment: Speci men Type: BLOOD SPECIMENOrdering Facility: [facility] Address: [address] [place] [address] Performed By: #### 5 7021-8 ####[facility] - PINE RIDGEJuli [id number] [place] [address] [place] Monocytes/100 WBC (Bld) 10.8 % Normal C [facility] Comment on above: Order Comment: Speci men Type: BLOOD SPECIMENOrdering Facility: [facility] Address: [address] [place] [address] Performed By: #### 5 7021-8 ####[facility] CENTERLIA [id number] [place] [address] [place] Neutrophils (Bld) [#/Vol] 5.38 10*3/uL Normal 1.45-7.50 [facility] Comment on above: Order Comment: Speci men Type: BLOOD SPECIMENOrdering Facility: [facility] Address: [address] [place] [address] Performed By: #### 5 7021-8 ####[facility] CENTERLIA [id number] [place] [address] [place] Neutrophils/100 WBC (Bld) 68.5 % Normal [facility] Comment on above: Order Comment: Speci men Type: BLOOD SPECIMENOrdering Facility: [facility] Address: [address] [place] [address] Performed By: #### 5 7021-8 ####[facility] JAIDENGRAHAMROS [id number] [place] [address] [place] Nucleated RBC (Bld) [#/Vol] 10*3/uL Normal <0.01 [facility] Comment on above: Order Comment: Speci men Type: BLOOD SPECIMENOrdering Facility: [facility] Address: [address] [place] [address] Performed By: #### 5 7021-8 ####[facility] [id number] [place] [address] [place] Nucleated RBC/100 WBC (Bld) [Ratio] 0.0 /100 WBC Normal [facility] Comment on above: Order Comment: Speci men Type: BLOOD SPECIMENOrdering Facility: [facility] Address: [address] [place] [address] Performed By: #### 5 7021-8 ####[facility] [id number] [place] [address] [place] Platelet mean volume (Bld) [Entitic vol] 9.8 fL Normal 9.0-12.7 [facility] Comment on above: Order Comment: Speci men Type: BLOOD SPECIMENOrdering Facility: [facility] Address: [address] [place] [address] Performed By: #### 5 7021-8 ####[facility] CENTERLIA [id number] [place] [address] [place] Platelets (Bld) [#/Vol] 375 10*3/uL Normal 150-400 [facility] Comment on above: Order Comment: Speci men Type: BLOOD SPECIMENOrdering Facility: [facility] Address: [address] [place], [place] [address] Performed By: #### 5 7021-8 ####[facility] MICHAELWNCLIA [id number] [place] [address] [place] RBC (Bld) [#/Vol] 4.05 10*6/uL Normal 3.90-5.20 [facility] Comment on above: Order Comment: Speci men Type: BLOOD SPECIMENOrdering Facility: [facility] Address: [address] [place] [address] Performed By: #### 5 7021-8 ####[facility] HOSPITALNCLIA [id number] [place] [address] [place] WBC (Bld) [#/Vol] 7.86 10*3/uL Normal 3.70-11.00 [facility] Comment on above: Order Comment: Speci men Type: BLOOD SPECIMENOrdering Facility: [facility] Address: [address] [place] [address] Performed By: #### 5 7021-8 ####[facility] HOSPITALNCLIA [id number] [place] [address] [place] CNPNon 03-24-2025 CNPN Normal [facility] HISTORY PHYSICALon HISTORY PHYSICAL Normal [facility] CNPNon 03-23-2025 CNPN Normal [facility] FUNDUS PHOTOS OU (BOTH EYES) on 03-23-2025 [facility] No Panel Informationon 03-23 Radiology Study observation (narrative) [facility] OCT OPTIC NERVE CIRRUS OU (B OTH EYES)on 03-23-2025 [facility] PACHYMETRY OU (BOTH EYES)on 03-23-2025 [facility] Radiology Study observation (narrative) [facility] SLIT LAMP PHOTOS OU (BOTH EY ES)on 03-23-2025 [facility] CNPTOUTREACHon 03-16-2025 CNPTOUTREACH Normal [facility] Lumbar Spine 2 or 3 Viewson 03-10-2025 Lumbar Spine 2 or 3 Views [facility] Services [address] [place], [place] [address] Lumbar Spine 2 or 3 Views MR#: [id number] Acct: [id number] Name: ALLIE LYNN Rep #: [id number] : 1970 F 54 From: Alan Perales MD PCP: Dr. Ifeoma Davis MD Status: DEP AMB Study: Lumbar Spine 2 or 3 Views Date of Exam: Exam# [id number] Ordering Dr: Phillip Pozo DO PROCEDURE: LUMBAR SPINE 2 OR 3 VIEWS 03/10/2025 REASON FOR EXAM: CHRONIC BACK PAIN TECHNIQUE: LUMBAR SPINE 2 OR 3 VIEWS COMPARISON: None. FINDINGS: No evidence of acute fracture or dislocation. Levoscoliosis. Jgjj-od-xvlczjmp discogenic degenerative changes of the visualized spine. RAD/Lumbar Spine 2 or 3 Views IMPRESSION: Spondylosis. Levoscoliosis. Reading Location: [id number] CC: Dr. Ifeoma Davis MD; Dr. Phillip Pozo DO Gifted Program Teacher: Signed Normal [facility] Orthopedic Visit Reporton Orthopedic Visit Report [facility] [address] [place] [address] OFFICE VISIT Date of Service: 03/10/25 MR#: [id number] Acct: [id number] Name: ALLIE LYNN ANN Rep #: [id number] : 1970 Provider: Dr. Phillip goldman DO Age/Sex: 54/F Location[place] [facility] [place] Status: Signed Intake Vital Signs 12/09/24 13:28 [...] QDAY 12/09/24 03/10/25 H istory omega-3 720 jp-tez-fpi-fish cap PO 12/09/24 03/10/25 History oil-vit D3 [...] Dr. Betancourt. (more content not included)... Normal [facility] CNNURSEon 03-02-2025 CNNURSE Normal [facility] CNPNon 03-01-2025 CNPN Normal [facility] CNPNon 02-25-2025 CNPN Normal [facility] CNPNon 01-12-2025 CNPN Normal [facility] CNPNon 12-30-2024 CNPN Normal [facility] CNOVon 12-29-2024 CNOV Normal [facility] POLYSOMNOGRAM (PSG)on 2024 [facility] at [address] [address] ; PSG Study Report Name: ALLIE LYNN Date of Study: 11/17/2024 [facility]#: [id number] Age: 54 (: 1970) ESS: 01/23 Neck [...] PSG 4 or more addtl bridget PC (68344) Procedure: The study was attended continuously by a biomedical engineering technologist. The monitored parameters included: left [...] Respirator (more content not included)... SLEEP LAB [facility] Orthopedic Visit Reporton Orthopedic Visit Report [facility] [address] [place] [address] OFFICE VISIT Date of Service: 12/09/24 MR#: [id number] Acct: [id number] Name: ALLIE LYNN Rep #: [id number] : 1970 Provider: Dr. Phillip Pretty so, DO Age/Sex: 54/F Location[place] [facility] [place] Status: Signed Intake Vital [...] QDAY 12/09/24 12/09/24 H istory omega-3 720 nz-lbw-fle-fish cap PO 12/09/24 12/09/24 History oil-vit D3 [...] Right Shoulde (more content not included)... Normal [facility] 12-07-2024 [facility] Normal [facility] 12-01-2024 [facility] Normal [facility] HIP, UNI W/ Pelvis 2-3 Views on 11-24-2024 HIP, UNI W/ Pelvis 2-3 Views [facility] Services [address], [place] [address] HIP, UNI W/ Pelvis 2-3 Views MR#: [id number] Acct: [id number] Name: AAMIRALLIEDEANNA Rep #: [id number] : 1970 F 54 From: Danie Salvador MD PCP: Dr. Ifeoma Davis MD Status: DEP AMB Study: HIP, UNI W/ Pelvis 2-3 Views Date of Exam: Exam# [id number] Ordering Dr: Allie Prakash PROCEDURE: HIP, UNI [...] central to lateral joint space narrowing near wjph-cy-akub contact. Lateral acetabular osteophyte formation and large femoral head osteophytes with buttressing. Right hip mild to moderate appearing osteoarthrosis with ecyh-kd-bydsydjl lateral joint space narrowing and small osteophyte formation. No fracture or dislocation identified. RAD/HIP, UNI W/ Pelvis 2-3 Views IMPRESSION: Leyn-vjlnbwo-sftz-rig ht appearing osteoarthrosis as described above with associated appearing left downward pelvic tilt. Reading Location: [facility] CC: Allie Prakash; Dr. Ifeoma Davis MD Gifted Program Teacher: Signed Normal [facility] Hip Min 2 Views (Portable)on 11-24-2024 Hip Min 2 Views (Portable) [facility] Services [address] [place] [address] Hip Min 2 Views (Portable) MR#: [id number] Acct: [id number] Name: ALLIE LYNN ANN Rep #: [id number] : 1970 F 54 From: Laya Tay PCP: Dr. Ifeoma Davis MD Status: REG CLI Study: Hip Min 2 Views (Portable) Date of Exam: 11/24 Exam# [id number] Ordering Dr: Allie Prakash PROCEDURE: HIP MIN [...] of the left groin region. Reading Location: [id number] CC: Allie Prakash; Dr. Ifeoma Davis MD Gifted Program Teacher: Signed Normal [facility] CNPNon 11-20-2024 CNPN Normal [facility] Basic metabolic 2000 panelon 11-19-2024 Anion gap [Moles/Vol] 14 mmol/L Normal 8-15 [facility] Comment on above: Order Comment: Speci men Type: BLOOD SPECIMENOrdering Facility: [facility] Address: [address] [place] [address] Performed By: #### 2 4321-2 ####[facility] LABCLIA [id number] [place] [address] [place] Calcium [Mass/Vol] 9.7 mg/dL Normal 8.5-10.2 [facility] Comment on above: Order Comment: Speci men Type: BLOOD SPECIMENOrdering Facility: [facility] Address: [address] [place] [address] Performed By: #### 2 4321-2 ####[facility] LABCLIA [id number] [place] [address] [place] Chloride [Moles/Vol] 99 mmol/L Normal 98-107 [facility] Comment on above: Order Comment: Speci men Type: BLOOD SPECIMENOrdering Facility: [facility] Address: [address] [place] [address] Performed By: #### 2 4321-2 ####[facility] LABCLIA [id number] [place] [id number] [place] CO2 [Moles/Vol] 27 mmol/L Normal 22-30 [facility] Comment on above: Order Comment: Speci men Type: BLOOD SPECIMENOrdering Facility: [facility] Address: [address] [place], [place] [address] Performed By: #### 2 4321-2 ####[facility] LABCLIA [id number] [place] [id number] [place] Creatinine [Mass/Vol] 0.95 mg/dL Normal 0.58-0.96 [facility] Comment on above: Order Comment: Brandan eaton Type: BLOOD SPECIMENOrdering Facility: [facility] Address: [address] [place] [address] Performed By: #### 2 4321-2 ####[facility] [id number] [address] OF [facility] Creatinine and Glomerular filtration rate.predicted panel (S/P/Bld) 71 mL/min/1.73m??? Normal >=60 [facility] Comment on above: Order Comment: Brandan eaton Type: BLOOD SPECIMENOrdering Facility: [facility] Address: [address] [place] [address] Result Comment: Zaria mated Glomerular Filtration Rate [...] actual GFR. Performed By: #### 2 4321-2 ####[facility] LABIA [id number] [place] [address] [place] Glucose [Mass/Vol] 73 mg/dL Low 74-99 [facility] Comment on above: Order Comment: Brandan eaton Type: BLOOD SPECIMENOrdering Facility: [facility] Address: [address] [place] [address] Result Comment: The [place] Diabetes Association (ADA) provides guidance for cutoff [...] Standards of Medical Care in Diabetes 2016, [place] [employer]. Diabetes Care. 2016.39(Suppl 1). Performed By: #### 2 4321-2 ####[facility] LABIA [id number] [place] [id number] [place] Potassium [Moles/Vol] 3.5 mmol/L Low 3.7-5.1 [facility] Comment on above: Order Comment: Brandan eaton Type: BLOOD SPECIMENOrdering Facility: [facility] Address: [address] [place] [address] Performed By: #### 2 4321-2 ####[facility] LABIA [id number] [place] [id number] [place] Sodium [Moles/Vol] 140 mmol/L Normal 136-144 [facility] Comment on above: Order Comment: Brandan eaton Type: BLOOD SPECIMENOrdering Facility: [facility] Address: [address] [place] [address] Performed By: #### 2 4321-2 ####[facility] LABIA [id number] [place] [id number] [place] Urea nitrogen [Mass/Vol] 12 mg/dL Normal 7-21 [facility] Comment on above: Order Comment: Brandan eaton Type: BLOOD SPECIMENOrdering Facility: [facility] Address: [address] [place] [address] Performed By: #### 2 4321-2 ####[facility] LABIA [id number] [place] [id number] [place] CNOVon 11-19-2024 CNOV Normal [facility] CNOVon 11-17-2024 CNOV Office Visit (LDNESL ) AAMIRALLIE Bustos ([id number]) 1970 F [place] Date Time Provider Department 11/17/24 9:00 PM SLEEP LAB LODI BED 1 LDNESL During your visit today, we recorded the following information about you: Referring Provider: KIMBERLEY AMBROCIO [[id number]] Allergies As of Date: 11/17/2024 Noted Allergy [...] [G47.61] Primary hypertension [I10] Order(s):POLYSOMNOGRA M (PSG) [[id number]] Order #: [id number]. #:[id number] Prescriptions as of 01/05/2025 - meloxicam (MOBIC) [...] daily. - CPAP/BIPAP/OTHER APAP 5-[address] 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 Normal [facility] POLYSOMNOGRAM (PSG)/HOME SLE EP APNEA TEST (HSAT)on 11-17-2024 POLYSOMNOGRAM (PSG)/HOME SLEEP APNEA TEST (HSAT) Normal [facility] 25(OH)D3 [facility] 25-hydroxyvitamin D3 [Mass/Vol] 42.9 ng/mL Normal 31.0-80.0 [facility] Comment on above: Order Comment: Speci men Type: BLOOD SPECIMENOrdering Facility: [facility] Address: [address] [place] [address] Result Comment: Clas sification of 25 [place] Vitamin D status:Deficiency/Insufficiency: < or = 30 ng/ml.Sufficiency/Optimal Levels: 31-80 ng/mLToxicity: > 100 ng/mL.Test performed by chemiluminescent immunoassay. Performed By: #### 1 989-3 ####[facility] LABCLIA [id number] [place] [address] [place] CBC W Auto Differential pane l (Bld)on 11-03-2024 Basophils (Bld) [#/Vol] 0.03 10*3/uL [facility] Basophils/100 WBC (Bld) 0.6 % [facility] Differential cell count method Nom (Bld) Auto [facility] Eosinophils (Bld) [#/Vol] 0.2 10*3/uL [facility] Eosinophils/100 WBC (Bld) 3.7 % [facility] Erythrocyte distribution width (RBC) [Ratio] 14 % 11.5 - 15.0 % [facility] Hematocrit (Bld) [Volume fraction] 37.9 % 36.0 - 46.0 % [facility] Hemoglobin (Bld) [Mass/Vol] 12 g/dL 11.5 - 15.5 g/dL [facility] Immature granulocytes (Bld) [#/Vol] [facility] Immature granulocytes/100 WBC (Bld) 0.2 % [facility] Lymphocytes (Bld) [#/Vol] 1.2 10*3/uL [facility] Lymphocytes/100 WBC (Bld) 22.2 % [facility] MCH (RBC) [Entitic mass] 29.3 pg 26. 0 - 34.[address] [facility] MCHC (RBC) [Mass/Vol] 31.7 g/dL 30.5 - 36.0 g/dL [facility] MCV (RBC) [Entitic vol] 92.4 fL 80.0 - 100.[address] [facility] Monocytes (Bld) [#/Vol] 0.65 10*3/uL [facility] Monocytes/100 WBC (Bld) 12 % C [facility] Neutrophils (Bld) [#/Vol] 3.31 10*3/uL [facility] Neutrophils/100 WBC (Bld) 61.3 % [facility] Nucleated RBC (Bld) [#/Vol] NINF [facility] Nucleated RBC/100 WBC (Bld) [Ratio] 0 % /[address] [facility] Platelet mean volume (Bld) [Entitic vol] 11 fL 9.0 - 12.[address] [facility] Platelets (Bld) [#/Vol] 334 10*3/uL [facility] RBC (Bld) [#/Vol] 4.1 10*6/uL 3.90 - 5.2 0 m/uL [facility] WBC (Bld) [#/Vol] 5.4 10*3/uL [facility] Basophils (Bld) [#/Vol] 0.03 10*3/uL Normal <0.11 [facility] Comment on above: Order Comment: Speci men Type: BLOOD SPECIMENOrdering Facility: [facility] Address: [address] [place] [address] Performed By: #### 5 7021-8 ####[place] [facility] LABORATORYCLIA [id number] [address] STATES OF [facility] Basophils/100 WBC (Bld) 0.6 % Normal [facility] Comment on above: Order Comment: Speci men Type: BLOOD SPECIMENOrdering Facility: [facility] Address: [address] [place] [address] Performed By: #### 5 7021-8 ####[place] [facility] LABORATORYCLIA [id number] [place] [address] [place] Differential cell count method Nom (Bld) Auto Normal [facility] Comment on above: Order Comment: Speci men Type: BLOOD SPECIMENOrdering Facility: [facility] Address: [address] [place] [address] Performed By: #### 5 7021-8 ####[facility] LABORATORYCLIA [id number] [address] [place] Eosinophils (Bld) [#/Vol] 0.20 10*3/uL Normal <0.46 [facility] Comment on above: Order Comment: Speci men Type: BLOOD SPECIMENOrdering Facility: [facility] Address: [address] [place] [address] Performed By: #### 5 7021-8 ####[facility] LABORATORYCLIA [id number] [address] [place] Eosinophils/100 WBC (Bld) 3.7 % Normal [facility] Comment on above: Order Comment: Speci men Type: BLOOD SPECIMENOrdering Facility: [facility] Address: [address] [place] [address] Performed By: #### 5 7021-8 ####[facility] LABORATORYCLIA [id number] [address] [place] Erythrocyte distribution width (RBC) [Ratio] 14.0 % Normal 11.5-15.0 [facility] Comment on above: Order Comment: Speci men Type: BLOOD SPECIMENOrdering Facility: [facility] Address: [address] [place] [address] Performed By: #### 5 7021-8 ####[place] [facility] LABORATORYCLIA [id number] [address] [place] Hematocrit (Bld) [Volume fraction] 37.9 % Normal 36.0-46.0 [facility] Comment on above: Order Comment: Speci men Type: BLOOD SPECIMENOrdering Facility: [facility] Address: [address] [place] [address] Performed By: #### 5 7021-8 ####[facility] LABORATORYCLIA [id number] [address] [place] Hemoglobin (Bld) [Mass/Vol] 12.0 g/dL Normal 11.5-15.5 [facility] Comment on above: Order Comment: Speci men Type: BLOOD SPECIMENOrdering Facility: [facility] Address: [address] [place] [address] Performed By: #### 5 7021-8 ####[facility]ORATORYCLIA [id number] [address] [place] Immature granulocytes (Bld) [#/Vol] 10*3/uL Normal <0.10 [facility] Comment on above: Order Comment: Speci men Type: BLOOD SPECIMENOrdering Facility: [facility] Address: [address] [place] [address] Performed By: #### 5 7021-8 ####[facility] LABORATORYCLIA [id number] [address] [place] Immature granulocytes/100 WBC (Bld) 0.2 % Normal [facility] Comment on above: Order Comment: Speci men Type: BLOOD SPECIMENOrdering Facility: [facility] Address: [address] [place] [address] Performed By: #### 5 7021-8 ####[facility] LABORATORYCLIA [id number] [address] [place] Lymphocytes (Bld) [#/Vol] 1.20 10*3/uL Normal 1.00-4.00 [facility] Comment on above: Order Comment: Speci men Type: BLOOD SPECIMENOrdering Facility: [facility] Address: [address] [place] [address] Performed By: #### 5 7021-8 ####[facility] LABORATORYCLIA [id number] [address] [place] Lymphocytes/100 WBC (Bld) 22.2 % Normal [facility] Comment on above: Order Comment: Speci men Type: BLOOD SPECIMENOrdering Facility: [facility] Address: [address] [place] [address] Performed By: #### 5 7021-8 ####[facility] LABORATORYCLIA [id number] [address] [place] MCH (RBC) [Entitic mass] 29.3 pg Normal 26.0-34.0 [facility] Comment on above: Order Comment: Speci men Type: BLOOD SPECIMENOrdering Facility: [facility] Address: [address] [place] [address] Performed By: #### 5 7021-8 ####[facility] LABORATORYCLIA [id number] [address] MCHC (RBC) [Mass/Vol] 31.7 g/dL Normal 30.5-36.0 [facility] Comment on above: Order Comment: Speci men Type: BLOOD SPECIMENOrdering Facility: [facility] Address: [address] [place] [address] Performed By: #### 5 7021-8 ####[facility] LABORATORYCLIA [id number] [address] STATES [facility] MCV (RBC) [Entitic vol] 92.4 fL Normal 80.0-100.0 C [facility] Comment on above: Order Comment: Speci men Type: BLOOD SPECIMENOrdering Facility: [facility] Address: [address] [place] [address] Performed By: #### 5 7021-8 ####[facility] LABORATORYCLIA [id number] [address] [place] Monocytes (Bld) [#/Vol] 0.65 10*3/uL Normal <0.87 [facility] Comment on above: Order Comment: Speci men Type: BLOOD SPECIMENOrdering Facility: [facility] Address: [address] [place] [address] Performed By: #### 5 7021-8 ####[facility] LABORATORYCLIA [id number] [address] STATES [facility] Monocytes/100 WBC (Bld) 12.0 % Normal C [facility] Comment on above: Order Comment: Speci men Type: BLOOD SPECIMENOrdering Facility: [facility] Address: [address] [place] [address] Performed By: #### 5 7021-8 ####[facility] LABORATORYCLIA [id number] [address] [place] Neutrophils (Bld) [#/Vol] 3.31 10*3/uL Normal 1.45-7.50 [facility] Comment on above: Order Comment: Speci men Type: BLOOD SPECIMENOrdering Facility: [facility] Address: [address] [place] [address] Performed By: #### 5 7021-8 ####[facility] LABORATORYCLIA [id number] [place] [address] [place] Neutrophils/100 WBC (Bld) 61.3 % Normal [facility] Comment on above: Order Comment: Speci men Type: BLOOD SPECIMENOrdering Facility: [facility] Address: [address] [place] [address] Performed By: #### 5 7021-8 ####[facility] LABORATORYCLIA [id number] [place] [address] [place] Nucleated RBC (Bld) [#/Vol] 10*3/uL Normal <0.01 [facility] Comment on above: Order Comment: Speci men Type: BLOOD SPECIMENOrdering Facility: [facility] Address: [address] [place] [address] Performed By: #### 5 7021-8 ####[facility] LABORATORYCLIA [id number] [place] [address] [place] Nucleated RBC/100 WBC (Bld) [Ratio] 0.0 /100 WBC Normal [facility] Comment on above: Order Comment: Speci men Type: BLOOD SPECIMENOrdering Facility: [facility] Address: [address] [place] [address] Performed By: #### 5 7021-8 ####[facility] LABORATORYCLIA [id number] [place] [address] [place] Platelet mean volume (Bld) [Entitic vol] 11.0 fL Normal 9.0-12.7 [facility] Comment on above: Order Comment: Speci men Type: BLOOD SPECIMENOrdering Facility: [facility] Address: [address] [place] [address] Performed By: #### 5 7021-8 ####[facility] LABORATORYCLIA [id number] [place] [address] [place] Platelets (Bld) [#/Vol] 334 10*3/uL Normal 150-400 [facility] Comment on above: Order Comment: Speci men Type: BLOOD SPECIMENOrdering Facility: [facility] Address: [address] [place] [address] Performed By: #### 5 7021-8 ####[facility] LABORATORYCLIA [id number] [place] [address] [place] RBC (Bld) [#/Vol] 4.10 10*6/uL Normal 3.90-5.20 [facility] Comment on above: Order Comment: Speci men Type: BLOOD SPECIMENOrdering Facility: [facility] Address: [address] [place] [address] Performed By: #### 5 7021-8 ####[facility] LABORATORYCLIA [id number] [address] [place] WBC (Bld) [#/Vol] 5.40 10*3/uL Normal 3.70-11.00 [facility] Comment on above: Order Comment: Speci men Type: BLOOD SPECIMENOrdering Facility: [facility] Address: [address] [place] [address] Performed By: #### 5 7021-8 ####[facility] LABORATORYCLIA [id number] [place] [id number] [place] CNOVon 11-03-2024 CNOV Normal [facility] Ferritin SerPl-mCncon 2024 Ferritin [Mass/Vol] 29.7 ng/mL Normal 14.7-205.1 [facility] Comment on above: Order Comment: Speci men Type: BLOOD SPECIMENOrdering Facility: [facility] Address: [address] [place] [address] Performed By: #### 2 276-4, 3024-7, 61210-1, 3016-3 ####[facility] LABORATORYCLIA [id number] [place] [address] [place] Iron and Iron binding capaci ty panelon 11-03-2024 Iron [Mass/Vol] 93 ug/dL Normal 41-186 [facility] Comment on above: Order Comment: Speci men Type: BLOOD SPECIMENOrdering Facility: [facility] Address: [address] [place] [address] Performed By: #### 2 276-4, 3024-7, 99756-8, 3016-3 ####[facility] LABORATORYCLIA [id number] [place] [id number] [place] [facility] Iron binding capacity [Mass/Vol] 384 ug/dL Normal 232-386 [facility] Comment on above: Order Comment: Speci men Type: BLOOD SPECIMENOrdering Facility: [facility] Address: [address] [place] [address] Performed By: #### 2 276-4, 3024-7, 27540-3, 3016-3 ####[facility] CENTERCLIA [id number] [address] Iron saturation [Mass fraction] 24.2 % Normal 15.0-57.0 [facility] Comment on above: Order Comment: Speci men Type: BLOOD SPECIMENOrdering Facility: [facility] Address: [address] [place] [address] Performed By: #### 2 276-4, 3024-7, 64318-1, 3016-3 ####[facility] LABORATORYCLIA [id number] [place] [id number] [place] T4 Free SerPl-mCncon 025 Free T4 [Mass/Vol] 0.9 ng/dL Normal 0.9-1.7 [facility] Comment on above: Order Comment: Speci men Type: BLOOD SPECIMENOrdering Facility: [facility] Address: [address] [place] [address] Performed By: #### 2 276-4, 3024-7, 43403-3, 3016-3 ####[facility] LABORATORYCLIA [id number] [place] [id number] [place] TSH SerPl-aCncon 11-03-2024 TSH Qn 0.745 m[IU]/L Normal 0.270-4.200 [facility] Comment on above: Order Comment: Speci men Type: BLOOD SPECIMENOrdering Facility: [facility] Address: [address] [place] [address] Performed By: #### 2 276-4, 3024-7, 07272-2, 3016-3 ####[facility] LABORATORYCLIA [id number] [place] [address] [place] Vit B12 SerPl-mCncon 025 Cobalamin (Vitamin B12) [Mass/Vol] pg/mL High 232-1245 [facility] Comment on above: Order Comment: Speci men Type: BLOOD SPECIMENOrdering Facility: [facility] Address: [address] [place] [address] Performed By: #### 2 132-9 ####[facility] LABORATORYCLIA [id number] [place] [address] [place] Bacteria Ur Culton 5 Bacteria identified Cx Nom (U) ORGANISM ID: 1 <10,000 CFU/ml Lactose positive gram negative bacilli Insignificant colony count. No further workup. Normal [facility] Comment on above: Performed By: #### 6 30-4 ####[facility] LABCLIA [id number] [place] [address] [place] CNOVon 10-31-2024 CNOV Normal [facility] UA DIP, URINE (POC)on 2024 BILIRUBIN UA (POCT) Small Abnormal Negative [facility] CLARITY UA (POCT) Clear [facility] COLOR UA (POCT) Red [facility] GLUCOSE UA (POCT) 100 mg/dL Abnormal Negative [facility] Hemoglobin Ql (U) Large [facility]normal [facility] Interpretation and review of laboratory results Abnormal [facility] KETONE UA (POCT) Trace Negative mg/dL [facility] LEUKOCYTES UA (POCT) Large Abnormal Negative [facility] NITRITE UA (POCT) Positive Abnormal Negative [facility] PH UA (POCT) 6 4.5 - 8.0 [facility] Protein Ql (U) >=300 Abnormal Negative mg/dL [facility] SPECIFIC GRAVITY UA (POCT) 1.01 1.005 - 1.030 [facility] UROBILINOGEN UA (POCT) 2 Abnormal Carleen l E.U./dL [facility] Location:[facility], [address] [place] [address], [place], [address] [facility] POINT OF CARE [facility] GENOVEVA SCREENINGon 10-21-2024 GENOVEVA SCREENING Normal [facility] OCT MACULA CIRRUS OU (BOTH E YES)on 10-13-2024 [facility] Radiology Study observation (narrative) [facility] CNOVon 10-12-2024 CNOV Normal [facility] CNOVon 10-07-2024 CNOV Normal [facility] CNPNon 10-07-2024 CNPN Normal [facility] CNOVon 09-29-2024 CNOV Normal [facility] CNPNon 09-25-2024 CNPN Normal [facility] CNOVon 09-24-2024 CNOV Normal [facility] CNOVon 09-15-2024 CNOV Normal [facility] CNPNon 09-15-2024 CNPN Normal [facility] CNPNon 08-12-2024 CNPN Normal [facility] CNPTOUTREACHon 08-10-2024 CNPTOUTREACH Normal [facility] CNPNon 07-27-2024 CNPN Normal [facility] Cerv Spine 4 or 5 Viewson Cerv Spine 4 or 5 Views [facility] Radiology [address] [place] [address] Cerv Spine 4 or 5 Views MR#: [id number] Acct: [id number] Name: ALLIE LYNN ANN Rep #: [id number] : 1970 F 54 From: Henrik Cardona MD PCP: Dr. Ifeoma Davis MD Status: DEP AMB Study: Cerv Spine 4 or 5 Views Date of Exam: 07/15/24 Exam# [id number] Ordering Dr: Allie Prakash [id number] STUDY: X-RAY - CERVICAL SPINE REASON FOR [...] Electronically Signed: Henrik Cardona MD at 10:43 [facility] , CC: Allie Prakash; Dr. 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 OCT MACULA CIRRUS OU (BOTH E YES)on 02-18-2024 [facility] Radiology Study observation (narrative) [facility] SURGICAL PATHOLOGYOrdered By : Rik De La Paz on 06-07-2023 Addendum c7ufjPJjOJJglQLxYVFy M 0covvFeTNYfkKTeX7Ggyh exHQxyUL0hHP2xpZvtfKQ euDRqJHBbTwOcd1wwy475 vZXso8plMMJDVGckQMCJU Co3b0brOHSEdrbheFv9tI otA69xp3O8LnwqE1nfGPR wXGdyZWVuMFxibHVlMDt9 XHBhcGVydzEyMjQwXHBhc DDqgKA7OKKkIJ7svmbyIY tnGKdkDJRonxG8LJNccUP bO1UwWLPxUA4ilyfqFGO6 UDemISBpYHY9JmEwICIpx 5Vxcsv3WdUjdBQvFBkdvK FpblxmMVxmczIwIEltbXV sn8cfr6AkY8vdlYcmyLX8 IGZvciBILiBweWxvcmkga XMgbmVnYXRpdmUgKHBhcn QgQikuXHBhclxjZjFccGF gKNkuJg7rCFKeqwkqSSU4 RGelzMQdGVHts4RaLJfSF CgbDZktC1nozS7mozplaB WoCSNngyOjaz9wxaMpQDE oZLDxR8IvhbirwOpxxuJa BmPwbT23ao9obEK3v0YzZ E3xS6KcMUVwhS31ge3tpK ZisfEmS1KsdJYdilLmB1j tx44iX5DhzCTwwH1bd0g2 eJKsgZSbaUShxiB1vS9qU IQfs6ZsMCdmfqWxRpNrtp TvUBMtba7dahTrDWX0JXB bFBRdGDYkk9XriY0lJJfz Hl2lDVLghwhqk4p6hDamE ENsZXZlbGFuZCBDbGluaW VecRlkIQevCDk5SrQuQz8 tMCQ8LRuwFAZyfHwxV8ev IVG3yM4cc3c7PBAbFGHZP BXewsS6e8W5XL8hLMbjiA 7eDPccv4WjhDT3ZWGkYWK oukACXW9ofWQdHS0xfWq6 IJanEHCsvo4hAQuhqhJfI QegSL3wpLv2QHwzTLJpa8 UrKQOuK4WhrI3pZOjhn2S snIJiVLABRCRfnWDEx3Jp aSVyeJfsQU8dtOZyGZJwm lNkMP3zUAooFSwcT6GroU WmFFDZVPN7gK0zOJNnwIG xFX9qvtRqRZszc1CsdIGq ZPXpaaAOkpywnrOAx9Fce RJifLmwcU0cXZKsKR3pWB SvT92mm4croFZtyAF3sVI mWGMGRJBbssSqwMtdJI3f qyYmDmCWsqYrq1AocS4vA OJqBkU1gUAzCGE7IFD8xx KhKASgEL4guWWxLQXgRUF yWCKcMKYxx6YdIIHkyb69 LJEbGrnndEzjHIHWSZ8gK eMdEJrMKRAcwnNiSAb6xM F9JJDsdS9uRWUvO7zAVOJ wjpYevQPxgWQwTEKeuJ2j yLNfSm3dxKYxpLfuTOXfm XBsZXhpdHkgdGVzdGluZy 0rWSgcv8JllEGopFGaFGC cSNPlJAJtUx8hRLPcsM2h B7IoCCF9hnDgr5JpVpCOx VC6CFUzf4PaSQUyq1NwNc UgcmVnYXJkZWQgYXMgaW5 5QSQ5qYiikKcticOhKB0r UHOgciCvVYKoTOVwpB5aR I2dqEQmylFeGJ6fSV9nA3 D8iKMmQYJgjeOmw0snQZC 0YWluIGFwcHJvcHJpYXRl bHkuXHBhcn0= [facility] Work Phone: Case Report Surgical Pathology Report Case: [id number] Authorizing Provider: Andry Connelly MD Collected: 05/30/2023 01:16 PM Ordering Location: Ambulatory Surgery Received: 05/30/2023 09:01 PM Pathologist: Rik De La Paz MD Specimens: A) - DUODENUM BIOPSY, 2nd portion B) - ANTRUM (STOMACH) BIOPSY C) - STOMACH (GASTRIC) POLYP BIOPSY D) - RECTAL POLYP [facility] Work Phone: FINAL DIAGNOSIS i3vxzWKkLMQqqLNkMUWa M 9gguwApJGYiqGWcA4Idso fvLBzgPZ1pWZ0olCqdzRY rdOQwRNIfVeDky1vnf382 mWPri2ytXEEWprvdbJz4x JwxR21bo1S2KjpjC98lcM MrZKU3DGMuHCNfoUHwIAI aZRD5ONNbyKHlO7ozFBVb CY8abyyeFOwrGMdyHYKzk AI7KSDibNGgS6HbQFDvSN uxWVQujxd9OeEiCr9vyTD yeTcyMFxwYXJkXHBsYWlu DHSgPcHwHS4rGZS3f3Bst vDxZJDzuJ9ij0x0NQLcuh AtIFNtYWxsIGludGVzdGl bTSbhlVWca2LzWSwjcWfz hv8jt5rcdkwtkYMbzoTki LN7zD6sq7heZlRgKl4odq 4evZt7sQ8cnKZlXJHtqmS EEqAbZ8BrjHTdhTbqUowl rKN1YwbdLKUiFEVZzGpzK LPddc9jlYPxE3AjlBVsgG lzLlxwYXJccGFyIEMuICB RoQ9cNBXdCANci3y3eTSo yI0xqEboyLDxIA1nUvYlU HraVCbbRB9vJJXkdOexHl xwYXJccGFyIEQuICBSZWN 3lY1rIGShdIjpBFI5g978 QjyiHBKlLFHQjFB0fPYqY EXfNA0lwGBeOVEwxr0= [facility] Work Phone: Gross Description x0simJLhULCicYZCCOE8 M VTkAO0csWquwGs5lQodCM LrxoS5iMXpEMdqr7xeNNF 9k8japcIJDndzJZUgMX8m BExiYCQcAZ8yNkGpQIAeI mYxXHBhcGVydzEyMjQwXH HkiHHvmIW5SSAiIP4zyfr aKGfmXJleVIIebpV0MSZm wNAoE8MbAZBsDM9ayhvgL CW5KVXPAkkiFm0kgVNihY tcZjFcZmNoYXJzZXQwXGZ vwPqeCHMkKQy3eU1XFxyt NSK8KVSAVyawIkihnCvyy 2VjdCBcXHNnIFxcaWQgNT EwMDAgXFxkYiBPVlIgIiA 1BctoIfc8EbCkQBr6QNxq RyHPDYs9OES4BaBpXPd2S TkgXFxuaCBcXHQgMSBcXG DvVLbrlcY7s8jqDWKlkRO eVAL5ELpie0ssADlsBHX8 FEYrJqKkAWTnFU7HMjOoJ VVsHcNpXrtsMvY6BJd1NS BPVlMgIiAgMzgwNjQwMjk fYBn2UGj7LUxROiUsESUa HaeeGTIeLhC2KLu4HgBqU HQgMiBcXHNzIDMgXFxmbC JuFV0wsWccWIWbGQ8ZELC sEQjlOARyMpPdHU6gFUIU YGGSOZ1oIknZQBMUUAh8b mNoXHBhciANClxwYXJkIA 6LEYHeXNznGFg4kdZvGKE sRdQlLSEeT07cw7OIy9Wb HB8GOVg7hwDudchvcH6oR HJpbjAgDQpcZnMyMCBSZW AbfYNbTMDotxSjy4EgUZm pbiBhcmUgbXVsdGlwbGUg tLtgV3PlZV3bTEUpygvys 29hpHU6tNJngDRgIJrfty CeWAVwumaebB2wXDXnCKX 5VDUzTeT3FBIsRnMgkT9n GB57TNzssJLtuFZdrVI7M NVdvU1fg26eRQZcc4EhhN EsNsgcUEGpUBala4FrIHc lcGljWHNhMzAgDQpcZXBp U77fl0URr9Beg8ofvXehb 0BovMZfAK8cfNAkJI1Lk1 ycQOMcsJMtVPL5WQbhv1a gPOmjREQ1JBJoYhJxJHLy KF2SPiEoVWBpLrMlSwqyD mT7VPv9PBAFOrIbIlBwWr lyXnTrAXKfXKa5BFk8XLr WFlPjBZOhZebiUIQ4YSI5 TKt5TuWbLFOnDzPjZWYsC RNeCBmzjXTiWB8odZyzCY OcVZKnEJG2ITIehHTJj6Y xMDUgDQpcZnMyMiBCLiBB NjLNYJ8lJZPHW05VB3mmZ PVAG4QZACovAFJrXGnnpU FyZCANClxwbGFpblxsdHJ jaFxmczIyXGVwaWNOZXN0 WM9bCEYPNbhobJRoFWPwa YbjUUinyU4cGQGfBhDgAU WzT1ohNhIiMW7CLSPpPzY bSrKdTWz5MJLirV5xAf8r gINtfM3gPNTkYHN8feDvn SKqKEPix4VaiWDuECRkm2 F5JCTrq0J4WCMnU0vsEQu rlPrnBnZ8zpGvEwqozNRd PgDjqLOmDrQuE88aGQLvx SYuxKkwz0MxzRf4rSDuBR paLJ9gWYVgFUCaIKY1DO2 odUFzZN8KBVBaARfagLdz WHNiMFxzYTMwXGVwaWNYc 2EzMCANClxlcGljTmVzdE PxNnR3KSIxgKSkYPV1PF6 qhPwpMROiCTn7PXajQDEy E8WkB8QsTDoiLvVxRGmfN NIeVCXzKRbaXGFvG7UAYB OpXAG3ElH7FeTvPWa4CRh 0PZ5FWwNcXKGuIWN7EAG0 TMBfYBu0DFxyQF5UHDDkW bVuHMI3Mte5NUV4Omy2DK nnuIWnLMwpn3ZjLbIeAFK qPDsbwsS1YWTwpeNdt6Ds IZLpCSHpA4wuYmQzTGOKJ btcifAmBSToAXSFS11GN2 tpDPhCB4NVWKXiMNHUHXj XLKHJL0ZAKUqaBNGxPKzx cGFyZCANClxwbGFpblxsd HJjaFxmczIyXGVwaWNOZX G3ZN9lGYHYCgkyaDQiTZX yaGmjVEgzqY2zGVWcXmIi GUDcE1avTcVoYF3QQDVwR gEdTlGuJBh2FVTrhX3wDd 9lsLUthP9fzGNin45hDKC dGVJyGZ6nOYBmrx4kvb24 zxblg35pwHV0tTDtqXHsi VTat0QbpA3nGIKyQiB0GA QjTtU2BKPrCaJncX2uCC0 6RAirgCCjmMAkzEU6VVZc aQ0bk58fXPCan9UldFXtV tWspSNdMI4CHVPqSVbgeW ljWHNiMFxzYTMwXGVwaWN Tw1IrCYBONegwuChmBxFl xEMrPoI4YEPtjCIiQRY7K O7wyUtsCUWiCEb5CVutKY HaO3EtZ5WsTFfrYoHiLBj hWTAuSZEuBEtoXQCuS6FH IRElFAK6EyF9RnWyNRc7L Aq0RJ7HVnTuZSGwEUN9TU z3BfHuXYy2BUoiFH3ZZFS sVyGvKRW8Clf2CTA2Ysm7 YQysgFGyDWvqb0FlVvKfI QXkSFhdgmJ3SATvkcCll8 GeLAUuJRBjF9cgLsUsLIQ IMngtooVmZURqWOHWM1CB KYBVX9gUCRsxCQUxMQsbs GFyZCANClxwbGFpblxsdH JjaFxmczIyXGVwaWNOZXN 8OX3bGYDKJwkxvZGpDQNr tPjxQPtycA6nYPUcDmVtV MToE6wsPzCvCQ6IVWPsMc XjVyEbXYt4GGWknY5hDe6 doRUdrP6tkTQvf73vNFEe XRQhKD2mZXLpywtdr77pc EH9wHDhcREcaKAnw2EbyK 9aILHqQzB6TOHsScX4ZUQ eFKVyaS6pGO88QPciwXKy rJInoTG1VTLnnP4ny21jA MWrf9EjoNMsHrMnxEEiFI 0KXHNiMFxlcGljWHNiMCA ORfIidQHkAC5HE2Uan6Pe PTaqeVihNEMjz51dlGQmY i6epMHfBPQ4GRPgPHGgnQ WsGPMHzSbxtSNxZKj9ORJ iYLDdkMwbUUY4ZH9wTTWj EKYfnOKfKYbbU5wbBUGlN MPupGEpZJ4UJOAewsBAFe tLIFNlcHRlbWJlciAyOSw dBiOlZsDwCgF9VMUBQN8t xEKsOE7THPHwehOHKrxlB CRfXITzfYSLt8MeGZMDEv tajDbuMhQrwQRwQcN9NGO ogOBbPTE2QL8slLvnMOZk Z8VbU2HtqwM8ECOgegZSE knrTXWcTH1MQGIqUuAkSU p9 [facility] Work Phone: Performing Lab u3gjwYZcWGPlhZYyUbTh M ONrUVKmm2yvCZYqrCPaGw EwMzNcZnRuYmpcdWMxXGR qZyCgx7aom422sOSkg3vn VGRhEmO0nJYxXGPkqEVqJ 570IKPaRTybv1gaw1PyGI IuoRRmb0P6ZXSEnpfgdEi 2dEvcF39mt5K6RhwsO4ju TGJkOCAbC5McSP1kTNNcW hu6EJQ6YMS4RGAyZBTpV4 NsIW4lZGUxhJTsLOz5n6b xaEdtHBPmPCX4h1mtBEem bqZrBA1vvg7toAe7l9fsu zEgRGVmYXVsdCBQYXJhZ3 KghWshBj6ehZy4iUhnLsz mITQ1Uen8TS7fwm81qjo6 rHhmARRbxrprOqW0LKguR LKzqspvFYz7WLsnPITojV M2UIAzuFEqM1JqVDbaKQ2 wtyp8FZH3BMfiWPSkNmQ0 NDBcaGVhZGVyeTcyMFxmb 603PTL2CjNhWI0gF0Ney0 X7aT5awOIaKHMztNPpJeZ dZRPccd7tyOXsAGqwz6Ch YCK0agG5ePUhtDNuMAOfV W67Tkvnx1GvVxyxh0ZfS8 4laXP2RWqzd7njBE6pQyX 7odAbBFhcv4mcpP9qSoN3 KSxeJQ3xXA3gYPLelA3uc mxjXHBnYnJkcmhlYWRccG nwxcGvZo5icTkfWKX9VQx cH7vdqS5iJuS3CSlsU1dw cD8sVCa2CZrvrBG7NEEzb K0tLI0gsuquj3fnZZeaBC wlYTYfzaS1peVkYGBqoPM gN1WnbO8tOUNoXY6cykya w2ptGYJ2YMxvPZTzTCG0F eQdKQEvp5Hyfof3JkGob2 CocLMcMHhbG63ro124PEN zdmRaN2vnbOPoqualpUCq dbdwERhzejA5AVHzDGSmN WluXGYxXGZzMjJcbGFuZz EwMzNcaGljaFxmMVxkYmN fNWUbVAxfF4sxHeYlAaFk GeFYhQJqih8rbCzoGDnjx CAznHMwlWE1yU1lONXhve Obqy5bJMDjiGRBxQM8IBs dtuLpW8virjoeOXL6TCPm FLU5J0trGAUFvhRiOAFnM YMuiPAeZIKGJQZ6OWH7RD AuCVKLSVBpMNT7YUO0FDW wOTRccGFyXHBhclxwYXJk XHBsYWluXGYwXGZzMjRcc LkzkW3tQhMzGiMkIjntRG 8nJPPgQ1paxJZrMPShVIT hD0klYvBjlQ1xgWrdWNmz ZjJcZnMyMlxsdHJjaCBMY YFijkF0m0B8HFdtrIHhnc xmMVxmczIyXGxhbmcxMDM rAPdvZ2kdIjEeKXHpbTjz ZKlxc1GrXLGwOZDcRmDzQ GomADH9w3U2AFcpyZBqaf VZIkOIOR7zhLNczraxIU9 ELlxwYXJ9 [facility] Work Phone: [facility] Work Phone: EGD Study observation Narrat ketan 06-01-2023 [facility] Patient Name: Allie Lynn Procedure Date: 05/30/2023 1:05 PM Date of : 1970 Admit Type: Outpatient Age: 53 Room: [place] [address] Gender: Female Note Status: Finalized Attending MD: [...] previously scheduled. Procedure Code(s): --- Professional --- 66131, Esophagogastroduodeno scopy, flexible, transoral; with biopsy, single or multiple CPT copyright 2020 [employer]. All rights reserved. The codes documented in this report are preliminary and upon photo tube assembler review may be revised to meet current compliance requirements. (more content not included)... [facility] Flexible sigmoidoscopy study on 06-01-2023 [facility] Patient Name: Allie Lynn Procedure Date: 05/30/2023 1:05 PM Date of : 1970 Admit Type: Outpatient Age: 53 Room: [place] [address] Gender: Female Note Status: Finalized Attending MD: Andyr Connelly MD Procedure: Colonoscopy Indications: Change in bowel habits Providers: Andry Connelly MD Patient Profile: Last Colonoscopy: 3 years ago. Referring Physician: Cande Pozo (pa) (Referring ) Medicines: Monitored Anesthesia Care Complications: No immediate [...] antiplatelet agents. Procedure Code(s): --- Professional --- 88234, Colonoscopy, flexible; with biopsy, single or multiple CPT copyright 2020 [employer]. All rights reserved. The codes documented in this report are preliminary and upon photo tube assembler review may be revised to meet current compliance requirements. Attending Participation: I personally performed the entire procedure. Scope In: 1:23:39 PM Scope Out: 1:33:56 PM MD Andry Martin MD 05/30/2023 1:42:21 PM This report has been signed electronically by Andry Connelly MD Number of Addenda: 0 Note Initiated On: 05/30/2023 1:05 PM Estimated Blood Loss: Estimated blood loss was minimal. [facility] EGD Study observation Narrat iveon 05-30-2023 Radiology Study observation (narrative) [facility] Flexible sigmoidoscopy study on 05-30-2023 Radiology Study observation (narrative) [facility] Basic metabolic 2000 panelon 05-22-2023 Anion gap [Moles/Vol] 10 mmol/L 9 - 18 mmol/L [facility] Calcium [Mass/Vol] 9.8 mg/dL 8.5 - 10. 2 mg/dL [facility] Chloride [Moles/Vol] 101 mmol/L 97 - 10 5 mmol/L [facility] CO2 [Moles/Vol] 25 mmol/L 22 - 30 mmol/L [facility] Creatinine [Mass/Vol] 0.86 mg/dL 0.58 - 0.96 mg/dL [facility] Estimated Glomerular Filtration Rate 80 mL/min/1.73m >=60 mL/min/1.73m [facility] Glucose [Mass/Vol] 79 mg/dL 74 - 99 mg/dL [facility] Potassium [Moles/Vol] 4.1 mmol/L 3.7 - 5.1 mmol/L [facility] Sodium [Moles/Vol] 136 mmol/L 136 - 144 mmol/L [facility] Urea nitrogen [Mass/Vol] 18 mg/dL 7 - 21 mg/d L [facility] URIC ACID BLOODon 05-22-2023 Urate [Mass/Vol] 3.6 mg/dL 2.5 - 6.6 mg/dL [facility] ANES POSTPROC EVALon 023 ANES POSTPROC EVAL HNO ID: [id number] Author: Mary Kline MD Service: Anesthesiology Author Type: Anesthesiologist Type: Anesthesia Postprocedure Evaluation Filed: 11/07/2022 12:01 PM Note Text: POST ANESTHESIA EVALUATION NOTE : 1970 Procedure Summary Date: 11/07/22 [facility] An[facility]hesia Start: 948 Anesthesia Stop: 1024 [...] November 07, 2022 TIME: 12:01 PM CSN: [id number] [facility] ANES PRE-OPon 11-07-2022 ANES PRE-OP HNO ID: [id number] Author: Mary Kline MD Service: Anesthesiology Author Type: Anesthesiologist Type: Anesthesia Preprocedure Evaluation Filed: 11/07/2022 9:04 AM Note Text: ANESTHESIOLOGY DAY OF SURGERY NOTE : 1970 Procedure Information Date/Time: 11/07/22 0955 Procedure: RELEASE TRIGGER FINGER - RIGHT RING AND LEFT MIDDLE FINGERS (Bilateral: Finger) [facility] Surgeons: Massimo Roberts MD Estimated body [...] and consent discussed: yes. Patient / Responsible Libertarian agrees to proceed: yes Patient / Surrogate [...] November 07, 2022 TIME: 9:04 AM CSN: [id number] [facility] HISTORY PHYSICALon 3 HISTORY PHYSICAL HNO ID: [id number] Author: Taina Fan PA-C Service: Orthopaedic Surgery Author Type: Physician Ecommerce Manager Type: HANDP Filed: 11/07/2022 9:27 AM Note Text: Massimo Roberts MD Department of Orthopaedics [facility] [address] [place] [address] Dept: [phone] Dept October 01, 2022 CHIEF COMPLAINT: Established [...] EXTRACAP,INSERT LENS Right 06/25/2022 S BALLOON,UT[place]INE [place]ATION [id number] Medications: CURRENT MEDICATIONS Current Outpatient Medications Medication [...] Psych (no depression, anxiety) Massimo Roberts MD [facility] OPERATIVE NOon 11-07-2022 OPERATIVE NO HNO ID: [id number] Author: Massimo Roberts MD Service: Orthopaedic Surgery Author Type: Physician Type: Operative Report Filed: 11/07/2022 10:43 AM Note Text: OPERATIVE/PROCEDURE REPORT LOG ID: [id number] SURGERY/PROCEDURE DATE: 11/07/2022 INCISION/PROCEDURE START TIME: 10:01 AM INCISION CLOSE/PROCEDURE END TIME: 10:19 AM SURGEON(S)/PROCEDURAL IST(S) AND GREENSKEEPER(S): Surgeon(s) and Role: * Massimo Roberts MD - Primary Physician Ecommerce Manager: Taina Fan PA-C Registered Nurse Job Estimator: Marnie Freitas RN SURGERY/PROCEDURE(S): Right, ring finger [...] performed each procedure. CLOSURE TECHNIQUE: Primary SIGNATURE: Massmio Roberts MD PATIENT NAME: Allie Lynn DATE: November 07, 2022 TIME: 10:38 AM [facility] CNTHERAPYon 10-31-2022 CNTHERAPY OT/PT/Speech Visit (OTNOCA) AAMIRALLIE ([id number]) 1970 F [place] Date Time Provider Department 10/31/22 9:45 AM MICHELLE PEREZ OTNOCA Date Time Provider Department Center 10/31/2022 9:45 AM [id number], [place]*[facility] N Reason for Visit: Occupational Therapy [504] [...] this patient by: PATIENT ALMA DELIA Rosario [facility] GENOVEVA Wynn LILLY RTon 023 [facility] US BREAST LTD RTon 3 [facility] CNTHERAPYon 10-17-2022 CNTHERAPY OT/PT/Speech Visit (OTNOCA) ALLIE LYNN ([id number]) 1970 F [place] Date Time Provider Department 10/17/22 10:45 AM MICHELLE PEREZ Date Time Provider Department Center 10/17/2022 10:45 AM [id number], REBECCA*[facility] N Reason for Visit: [...] this patient by: PATIENT ALMA DELIA Rosario [facility] XR SHOULDER [id number] AP/SYLVIA E AP RIGHTon 10-09-2022 [facility] XR HAND GENERAL 3V PA/LAT/OB L BILATERALon 10-01-2022 [facility] GENOVEVA SCREENINGon 09-27-2022 [facility] CNTHERAPYon 09-19-2022 CNTHERAPY OT/PT/Speech Visit (OTNOCA) ALLIE LYNN ([id number]) 1970 F [place] Date Time Provider Department 09/19/22 12:30 PM MICHELLE PEREZ Date Time Provider Department Center 09/19/2022 12:30 PM [id number], [facility]CCA[facility] Reason for Visit: [...] this patient by: PATIENT ALMA DELIA Rosario [facility] ANES POSTPROC EVALon --2 022 ANES POSTPROC EVAL HNO ID: [id number] Author: Florencio De La Fuente MD Service: Anesthesiology Author Type: Anesthesiologist Type: Anesthesia Postprocedure Evaluation Filed: 06/25/2022 12:00 PM Note Text: POST ANESTHESIA EVALUATION NOTE : 1970 Procedure Summary Date: 06/25/22 Room / Location: [facility] OR / [facility] Anesthesia Start: 957 Anesthesia Stop: 1130 Procedures: [...] June 25, 2022 TIME: 12:00 PM CSN: [id number] [facility] ANES PRE-OPon 06-25-2022 ANES PRE-OP HNO ID: [id number] Author: Florencio De La Fuente MD Service: [...] W/INTRAOCULAR LENS POWER CALCULATION (Right: Eye) Location: [place] [address] / [facility] Surgeons: Jonathon Eugene MD Estimated body mass [...] none. Vitals Value Taken Time BP 140/84 06/25/22 0944 Pulse 92 06/25/22943 Resp 16 06/25/22943 Temp [...] June 25, 2022 TIME: 9:57 AM CSN: [id number] [facility] HISTORY PHYSICALon HISTORY PHYSICAL HNO ID: [id number] Author: Jonathon Eugene MD Service: Ophthalmology Author [...] DATE: June 25, 2022 TIME: 10:02 AM [facility] OPERATIVE NOon 06-25-2022 OPERATIVE NO HNO ID: [id number] Author: Jonathon Eugene MD Service: Ophthalmology Author Type: Physician Type: Operative Report Filed: 06/25/2022 11:35 AM Note Text: OPERATIVE/PROCEDURE REPORT OPHTHAMOLOGY LOG ID: [id number] SURGERY/PROCEDURE DATE: 06/25/2022 INCISION/PROCEDURE START TIME: 10:13 AM INCISION CLOSE/PROCEDURE END TIME: 11:27 AM SURGEON(S)/PROCEDURAL IST(S) AND GREENSKEEPER(S): Surgeon(s) and Role: * Jonathon Eugene MD [...] Implant Name Type Inv. Item Serial No. Automatic Corn Grinder Operator Lot No. LRB No. Used Action Model No. LENS ACRYSOF ULTRASERT +14.5 DIOPTER ACRYLIC IOL 1 PIECE FOLDABLE UV BLUE - [id number] Intraocular Lens LENS ACRYSOF ULTRASERT +14.5 DIOPTER ACRYLIC IOL 1 PIECE FOLDABLE UV BLUE [id number] [employer] [facility] Right 1 Implanted [id number] Ocular Co-Morbidities: Yes Intra-operative Complications None I/primary surgeon/proceduralist performed the entire procedure. SIGNATURE: Jonathon Eugene MD PATIENT NAME: Allie Lynn DATE: June 25, 2022 TIME: 11:31 AM PAGER/CONTACT #: [phone] [facility] ESR Westergren method (Bld) [Velocity]on 05-04-2022 ESR (Bld) [Velocity] 10 mm/h 0 - 20 mm/hr [facility] C-REACTIVE PROTEIN (CRP)on 0 05-03-2022 CRP [Mass/Vol] <0.9 mg/dL [facility] RHEUMATOID FACTOR BLon 05-03 Rheumatoid factor Qn <16 IU/mL [facility] No Panel Information [facility] Vital Signs Date Time Vital Sign Value Performing Clinician Faci lity 07-10-2025 17:18-0500 Body temperature 98 [degF] Dr. Ifeoma Davis MD Work Phone: [facility] 07-10-2025 17:18-0500 Diastolic blood pressure 57 mm[Hg] Dr. Ifeoma Davis MD Work Phone: [facility] 07-10-2025 17:18-0500 Heart rate 79 /min Dr. Ifeoma Davis MD Work Phone: [facility] 07-10-2025 17:18-0500 Respiratory rate 18 /min Dr. Ifeoma Davis MD Work Phone: [facility] 07-10-2025 17:18-0500 SaO2% (BldA) [Mass fraction] 100 % Dr. Ifeoma Davis MD Work Phone: 6(087)397-198705 [place] [address] 07-10-2025 17:18-0500 Systolic blood pressure 112 mm[Hg] Dr. Ifeoma Davis MD Work Phone: 0(635)308-316605 [place] [address] 07-10-2025 14:53-0500 Body height 154.[address] Ifeoma Davis MD Work Phone: 5(509)495-420005 [place] [address] 06-29-2025 06:00-0400 Respiratory rate 16 /min Dr. Ifeoma Davis MD Work Phone: 4(886)724-945405 [place] [address] 06-29-2025 05:17-0400 Body temperature 98.1 [degF] Dr. Ifeoma Davis MD Work Phone: 5(384)272-400405 [place] [address] 06-29-2025 05:17-0400 Diastolic blood pressure 58 mm[Hg] Dr. Ifeoma Davis MD Work Phone: 4(804)894-308305 [place] [address] 06-29-2025 05:17-0400 Heart rate 68 /min Dr. Ifeoma Davis MD Work Phone: 4(796)296-938205 [place] [address] 06-29-2025 05:17-0400 SaO2% (BldA) [Mass fraction] 99 % Dr. Ifeoma Davis MD Work Phone: 4(144)902-389205 [place] [address] 06-29-2025 05:17-0400 Systolic blood pressure 108 mm[Hg] Dr. Ifeoma Davis MD Work Phone: 5(336)573-989905 [place] [address] 06-29-2025 02:44-0400 Body height 154.[address] Ifeoma Davis MD Work Phone: 7(075)600-237705 [place] [address] 06-29-2025 02:44-0400 Body mass index (BMI) [Ratio] 28.4 kg/m2 Dr. Ifeoma Davis MD Work Phone: 6(926)122-860505 [place] [address] 06-29-2025 02:44-0400 Body weight 68.[address] Ifeoma Davis MD Work Phone: 9(946)932-256805 [place] [address] 06-23-2025 21:14-0400 Body temperature 97.8 [degF] Dr. Ifeoma Davis MD Work Phone: 5(041)341-188705 [place] [address] 06-23-2025 21:14-0400 Diastolic blood pressure 62 mm[Hg] Dr. Ifeoma Davis MD Work Phone: 3(249)419-071105 [place] [address] 06-23-2025 21:14-0400 Heart rate 78 /min Dr. Ifeoma Davis MD Work Phone: 1(044)967-615105 [place] [address] 06-23-2025 21:14-0400 Respiratory rate 16 /min Dr. Ifeoma Davis MD Work Phone: 7(561)574-473605 [place] [address] 06-23-2025 21:14-0400 SaO2% (BldA) [Mass fraction] 98 % Dr. Ifeoma Davis MD Work Phone: 1(363)774-586905 [place] [address] 06-23-2025 21:14-0400 Systolic blood pressure 126 mm[Hg] Dr. Ifeoma Davis MD Work Phone: 6(924)427-798805 [place] [address] 06-23-2025 17:25-0400 Body mass index (BMI) [Ratio] 29 kg/m2 Dr. Ifeoma Davis MD Work Phone: 6(014)174-271905 [place] [address] 06-23-2025 17:25-0400 Body weight 69.[address] Ifeoma Davis MD Work Phone: 5(754)723-229505 [place] [address] 06-17-2025 19:44-0400 Body temperature 98 [degF] Dr. Ifeoma Davis MD Work Phone: 4(578)836-761905 [place] [address] 06-17-2025 19:44-0400 Diastolic blood pressure 72 mm[Hg] Dr. Ifeoma Davis MD Work Phone: 1(825)444-974905 [place] [address] 06-17-2025 19:44-0400 Heart rate 70 /min Dr. Ifeoma Davis MD Work Phone: 3(157)732-466405 [place] [address] 06-17-2025 19:44-0400 Respiratory rate 18 /min Dr. Ifeoma Davis MD Work Phone: 9(584)750-561105 [place] [address] 06-17-2025 19:44-0400 SaO2% (BldA) [Mass fraction] 100 % Dr. Ifeoma Davis MD Work Phone: 8(419)002-305605 [place] [address] 06-17-2025 19:44-0400 Systolic blood pressure 157 mm[Hg] Dr. Ifeoma Davis MD Work Phone: 4(960)890-768905 [place] [address] 06-17-2025 17:55-0400 Body mass index (BMI) [Ratio] 25.7 kg/m2 Dr. Ifeoma Davis MD Work Phone: 5(678)111-843105 [place] [address] 06-17-2025 17:55-0400 Body weight 61.[address] Ifeoma Davis MD Work Phone: 2(710)638-366005 [place] [address] 06-03-2025 15:26-0400 Body height 154.[address] Ifeoma Davis MD Work Phone: 9(917)099-252305 [place] [address] 06-03-2025 15:26-0400 Body mass index (BMI) [Ratio] 27 kg/m2 Dr. Ifeoma Davis MD Work Phone: 0(076)179-410705 [place] [address] 06-03-2025 15:26-0400 Body weight 64.[address] Ifeoma Davis MD Work Phone: 8(882)956-369205 [place] [address] 05-27-2025 19:22-0400 Body temperature 98 [degF] Dr. Ifeoma Davis MD Work Phone: 9(762)879-053305 [place] [address] 05-27-2025 19:22-0400 Diastolic blood pressure 69 mm[Hg] Dr. Ifeoma Davis MD Work Phone: 0(370)124-469305 [place] [address] 05-27-2025 19:22-0400 Heart rate 72 /min Dr. Ifeoma Davis MD Work Phone: 8(865)435-772505 [place] [address] 05-27-2025 19:22-0400 Respiratory rate 16 /min Dr. Ifeoma Davis MD Work Phone: 9(089)401-591005 [place] [address] 05-27-2025 19:22-0400 SaO2% (BldA) [Mass fraction] 100 % Dr. Ifeoma Davis MD Work Phone: [facility] 05-27-2025 19:22-0400 Systolic blood pressure 116 mm[Hg] Dr. Ifeoma Davis MD Work Phone: [facility] 05-27-2025 17:07-0400 Body height 154.[address] Ifeoma Davis MD Work Phone: [facility] 05-27-2025 17:07-0400 Body mass index (BMI) [Ratio] 27.6 kg/m2 Dr. Ifeoma Davis MD Work Phone: [facility] 05-27-2025 17:07-0400 Body weight 66.[address] Ifeoma Davis MD Work Phone: [facility] 04-22-2025 10:29-0400 Body mass index (BMI) [Ratio] 27.7 kg/m2 Ifeoma Davis MD Work Phone: [facility] 04-22-2025 10:29-0400 Body weight 66.5 kg Ifeoma Davis MD Work Phone: [facility] 04-22-2025 10:29-0400 Diastolic blood pressure 79 mm[Hg] Ifeoma Davis MD Work Phone: [facility] 04-22-2025 10:29-0400 Heart rate 79 /min Ifeoma Davis MD Work Phone: [facility] 04-22-2025 10:29-0400 Respiratory rate 16 /min Ifeoma Davis MD Work Phone: [facility] 04-22-2025 10:29-0400 Systolic blood pressure 129 mm[Hg] Ifeoma Davis MD Work Phone: [facility] 04-11-2025 13:09-0400 Body mass index (BMI) [Ratio] 27.53 kg/m2 Aislinn Reyes PA-C Work Phone: [facility] 04-11-2025 13:09-0400 Body temperature 97.2 [degF] Aislinn Reyes PA-C Work Phone: [facility] 04-11-2025 13:09-0400 Body weight 66.1 kg Aislinn Reyes PA-C Work Phone: [facility] 04-11-2025 13:09-0400 Diastolic blood pressure 62 mm[Hg] Aislinn Reyes PA-C Work Phone: [facility] 04-11-2025 13:09-0400 Heart rate 82 /min Aislinn Reyes PA-C Work Phone: [facility] 04-11-2025 13:09-0400 Respiratory rate 20 /min Aislinn Reyes PA-C Work Phone: [facility] 04-11-2025 13:09-0400 SaO2% (BldA) [Mass fraction] 98 % Aislinn Reyes PA-C Work Phone: [facility] 04-11-2025 13:09-0400 Systolic blood pressure 110 mm[Hg] Aislinn Reyes PA-C Work Phone: [facility] 03-24-2025 14:59-0400 Body height 154.9 cm Pacc 1 Work Phone: [facility] 03-24-2025 14:59-0400 Body mass index (BMI) [Ratio] 27.78 kg/m2 Pacc 1 Work Phone: [facility] 03-24-2025 14:59-0400 Body weight 66.68 kg Pacc 1 Work Phone: [facility] 03-24-2025 14:59-0400 Diastolic blood pressure 66 mm[Hg] Pacc 1 Work Phone: [facility] 03-24-2025 14:59-0400 Heart rate 80 /min Pacc 1 Work Phone: [facility] 03-24-2025 14:59-0400 Respiratory rate 18 /min Pacc 1 Work Phone: [facility] 03-24-2025 14:59-0400 SaO2% (BldA) [Mass fraction] 96 % Pacc 1 Work Phone: [facility] 03-24-2025 14:59-0400 Systolic blood pressure 108 mm[Hg] Pac 1 Work Phone: [facility] 12-29-2024 15:08-0400 Body height 154.9 cm Ifeoma Davis MD Work Phone: [facility] 12-29-2024 15:08-0400 Body mass index (BMI) [Ratio] 27.66 kg/m2 Ifeoma Davis MD Work Phone: [facility] 12-29-2024 15:08-0400 Body weight 66.41 kg Ifeoma Davis MD Work Phone: [facility] 12-29-2024 15:08-0400 Diastolic blood pressure 66 mm[Hg] Ifeoma Davis MD Work Phone: [facility] 12-29-2024 15:08-0400 Heart rate 86 /min Ifeoma Davis MD Work Phone: [facility] 12-29-2024 15:08-0400 SaO2% (BldA) [Mass fraction] 97 % Ifeoma Davis MD Work Phone: [facility] 12-29-2024 15:08-0400 Systolic blood pressure 112 mm[Hg] Ifeoma Davis MD Work Phone: [facility] 12-09-2024 13:28-0400 Body height 152.[address] Ifeoma Davis MD Work Phone: [facility] 12-09-2024 13:28-0400 Body mass index (BMI) [Ratio] 29.5 kg/m2 Dr. Ifeoma Davis MD Work Phone: [phone] [place] [address] 12-09-2024 13:28-0400 Body weight 68.[address] Ifeoma Davis MD Work Phone: [phone] [place] [address] 11-24-2024 15:06-0400 Body height 152.[address] Ifeoma Davis MD Work Phone: [phone] [place] [address] 11-03-2024 14:09-0500 Body height 154.9 cm Ifeoma Davis MD Work Phone: [facility] 11-03-2024 14:09-0500 Body mass index (BMI) [Ratio] 29.25 kg/m2 Ifeoma Davis MD Work Phone: [facility] 11-03-2024 14:09-0500 Body weight 70.22 kg Ifeoma Davis MD Work Phone: [facility] 11-03-2024 14:09-0500 Diastolic blood pressure 78 mm[Hg] Ifeoma Davis MD Work Phone: [facility] 11-03-2024 14:09-0500 Heart rate 98 /min Ifeoma Davis MD Work Phone: [facility] 11-03-2024 14:09-0500 SaO2% (BldA) [Mass fraction] 96 % Ifeoma Davis MD Work Phone: [facility] 11-03-2024 14:09-0500 Systolic blood pressure 114 mm[Hg] Ifeoma Davis MD Work Phone: [facility] 10-31-2024 12:58-0500 Body mass index (BMI) [Ratio] 28.74 kg/m2 Chantal Pino APRN.[employer]IST Work Phone: [facility] 10-31-2024 12:58-0500 Body temperature 97.11 [degF] Chantal Pino PACKING SUPERVISOR.[employer] SPECIALIST Work Phone: [facility] 10-31-2024 12:58-0500 Body weight 69 kg Chantal Alvarez PACKING SUPERVISOR.WEB CONTENT SPECIALIST Work Phone: [facility] 10-31-2024 12:58-0500 Diastolic blood pressure 88 mm[Hg] Chantal Pino PACKING SUPERVISOR.WEB CONTENT SPECIALIST Work Phone: [facility] 10-31-2024 12:58-0500 Heart rate 97 /min Chantal Pino PACKING SUPERVISOR.WEB CONTENT SPECIALIST Work Phone: [facility] 10-31-2024 12:58-0500 Respiratory rate 18 /min Chantal Alvarez PACKING SUPERVISOR.WEB CONTENT SPECIALIST Work Phone: [facility] 10-31-2024 12:58-0500 SaO2% (BldA) [Mass fraction] 99 % Chantal Pino PACKING SUPERVISOR.WEB CONTENT SPECIALIST Work Phone: [facility] 10-31-2024 12:58-0500 Systolic blood pressure 141 mm[Hg] Chantal Pino PACKING SUPERVISOR.WEB CONTENT SPECIALIST Work Phone: [facility] 10-12-2024 15:14-0500 Body mass index (BMI) [Ratio] 29.78 kg/m2 Ifeoma Davis MD Work Phone: [facility] 10-12-2024 15:14-0500 Body temperature 96.91 [degF] Ifeoma Davis MD Work Phone: [facility] 10-12-2024 15:14-0500 Body weight 71.49 kg Ifeoma Davis MD Work Phone: [facility] 10-12-2024 15:14-0500 Diastolic blood pressure 63 mm[Hg] Ifeoma Davis MD Work Phone: [facility] 10-12-2024 15:14-0500 Heart rate 118 /min Ifeoma Davis MD Work Phone: [facility] 10-12-2024 15:14-0500 Respiratory rate 16 /min Ifeoma Davis MD Work Phone: [facility] 10-12-2024 15:14-0500 SaO2% (BldA) [Mass fraction] 99 % Ifeoma Davis MD Work Phone: [facility] 10-12-2024 15:14-0500 Systolic blood pressure 106 mm[Hg] Ifeoma Davis MD Work Phone: [facility] 10-07-2024 18:25-0500 Body mass index (BMI) [Ratio] 30.41 kg/m2 Calli Duvall PACKING SUPERVISOR.WEB CONTENT SPECIALIST Work Phone: [facility] 10-07-2024 18:25-0500 Body temperature 98.2 [degF] Calli Zabrina PACKING SUPERVISOR.WEB CONTENT SPECIALIST Work Phone: [facility] 10-07-2024 18:25-0500 Body weight 73 kg Calli Zabrina PACKING SUPERVISOR.WEB CONTENT SPECIALIST Work Phone: [facility] 10-07-2024 18:25-0500 Diastolic blood pressure 62 mm[Hg] Calli Zabrina PACKING SUPERVISOR.WEB CONTENT SPECIALIST Work Phone: [facility] 10-07-2024 18:25-0500 Heart rate 103 /min Calli Zabrina PACKING SUPERVISOR.WEB CONTENT SPECIALIST Work Phone: [facility] 10-07-2024 18:25-0500 Respiratory rate 16 /min [facility] Zabrina PACKING SUPERVISOR.WEB CONTENT SPECIALIST Work Phone: [facility] 10-07-2024 18:25-0500 SaO2% (BldA) [Mass fraction] 96 % [facility] Zabrina PACKING SUPERVISOR.WEB CONTENT SPECIALIST Work Phone: [facility] 10-07-2024 18:25-0500 Systolic blood pressure 124 mm[Hg] Calli Zabrina PACKING SUPERVISOR.WEB CONTENT SPECIALIST Work Phone: [facility] 09-29-2024 14:11-0500 Body mass index (BMI) [Ratio] 30.42 kg/m2 Ifeoma Davis MD Work Phone: [facility] 09-29-2024 14:11-0500 Body weight 73.03 kg Ifeoma Davis MD Work Phone: [facility] 09-29-2024 14:11-0500 Diastolic blood pressure 88 mm[Hg] Ifeoma Davis MD Work Phone: [facility] 09-29-2024 14:11-0500 Heart rate 86 /min Ifeoma Davis MD Work Phone: [facility] 09-29-2024 14:11-0500 Respiratory rate 16 /min Ifeoma Davis MD Work Phone: [facility] 09-29-2024 14:11-0500 Systolic blood pressure 138 mm[Hg] Ifeoma Davis MD Work Phone: [facility] 09-24-2024 14:43-0500 Body mass index (BMI) [Ratio] 30.27 kg/m2 Michelle Elsy PACKING SUPERVISOR.WEB CONTENT SPECIALIST Work Phone: [facility] 09-24-2024 14:43-0500 Body weight 72.67 kg Michelle Elsy PACKING SUPERVISOR.WEB CONTENT SPECIALIST Work Phone: [facility] 09-24-2024 14:43-0500 Diastolic blood pressure 81 mm[Hg] Michelle Elsy PACKING SUPERVISOR.WEB CONTENT SPECIALIST Work Phone: [facility] 09-24-2024 14:43-0500 Heart rate 101 /min Michelle Elsy PACKING SUPERVISOR.WEB CONTENT SPECIALIST Work Phone: [facility] 09-24-2024 14:43-0500 SaO2% (BldA) [Mass fraction] 98 % Michelle Elsy PACKING SUPERVISOR.WEB CONTENT SPECIALIST Work Phone: [facility] 09-24-2024 14:43-0500 Systolic blood pressure 122 mm[Hg] Michelle Elsy PACKING SUPERVISOR.WEB CONTENT SPECIALIST Work Phone: [facility] 09-15-2024 10:09-0500 Body mass index (BMI) [Ratio] 29.85 kg/m2 Destiney Helder PACKING SUPERVISOR.WEB CONTENT SPECIALIST Work Phone: [facility] 09-15-2024 10:09-0500 Body weight 71.67 kg Destiney Helder PACKING SUPERVISOR.WEB CONTENT SPECIALIST Work Phone: [facility] 09-15-2024 10:09-0500 Diastolic blood pressure 66 mm[Hg] Destiney Helder PACKING SUPERVISOR.WEB CONTENT SPECIALIST Work Phone: [facility] 09-15-2024 10:09-0500 Systolic blood pressure 118 mm[Hg] Destiney Henderson PACKING SUPERVISOR.WEB CONTENT SPECIALIST Work Phone: [facility] 07-08-2024 17:38-0500 Body mass index (BMI) [Ratio] 28.87 kg/m2 Letty Kay PACKING SUPERVISOR.WEB CONTENT SPECIALIST Work Phone: [facility] 07-08-2024 17:38-0500 Body temperature 98.4 [degF] Letty Kay PACKING SUPERVISOR.WEB CONTENT SPECIALIST Work Phone: [facility] 07-08-2024 17:38-0500 Body weight 69.3 kg Letty Kay PACKING SUPERVISOR.WEB CONTENT SPECIALIST Work Phone: [facility] 07-08-2024 17:38-0500 Diastolic blood pressure 82 mm[Hg] Letty Kay PACKING SUPERVISOR.WEB CONTENT SPECIALIST Work Phone: [facility] 07-08-2024 17:38-0500 Heart rate 109 /min Letty Kay PACKING SUPERVISOR.WEB CONTENT SPECIALIST Work Phone: [facility] 07-08-2024 17:38-0500 Respiratory rate 18 /min Letty Kay PACKING SUPERVISOR.WEB CONTENT SPECIALIST Work Phone: [facility] 07-08-2024 17:38-0500 SaO2% (BldA) [Mass fraction] 97 % Letty Kay PACKING SUPERVISOR.WEB CONTENT SPECIALIST Work Phone: [facility] 07-08-2024 17:38-0500 Systolic blood pressure 128 mm[Hg] Letty Kay PACKING SUPERVISOR.WEB CONTENT SPECIALIST Work Phone: [facility] 04-11-2024 11:57-0400 Body mass index (BMI) [Ratio] 28.78 kg/m2 Krislyn Aberegg PA Work Phone: [facility] 04-11-2024 11:57-0400 Body temperature 97.9 [degF] Krislyn Aberegg PA Work Phone: [facility] 04-11-2024 11:57-0400 Body weight 69.1 kg Krislyn Aberegg PA Work Phone: [facility] 04-11-2024 11:57-0400 Diastolic blood pressure 70 mm[Hg] Krislyn Aberegg PA Work Phone: [facility] 04-11-2024 11:57-0400 Heart rate 92 /min Krislyn Aberegg PA Work Phone: [facility] 04-11-2024 11:57-0400 Respiratory rate 16 /min Krislyn Aberegg PA Work Phone: [facility] 04-11-2024 11:57-0400 SaO2% (BldA) [Mass fraction] 97 % Krislyn Aberegg PA Work Phone: [facility] 04-11-2024 11:57-0400 Systolic blood pressure 122 mm[Hg] Krislyn Aberegg PA Work Phone: [facility] 03-31-2024 12:47-0400 Body height 154.9 cm Ifeoma Davis MD Work Phone: [facility] 03-31-2024 12:47-0400 Body mass index (BMI) [Ratio] 28.34 kg/m2 Ifeoma Davis MD Work Phone: [facility] 03-31-2024 12:47-0400 Body weight 68.04 kg Ifeoma Davis MD Work Phone: [facility] 03-31-2024 12:47-0400 Diastolic blood pressure 70 mm[Hg] Ifeoma Davis MD Work Phone: [facility] 03-31-2024 12:47-0400 Heart rate 80 /min Ifeoma Davis MD Work Phone: [facility] 03-31-2024 12:47-0400 Respiratory rate 16 /min Ifeoma Davis MD Work Phone: [facility] 03-31-2024 12:47-0400 Systolic blood pressure 128 mm[Hg] Ifeoma Davis MD Work Phone: [facility] 12-24-2023 12:58-0400 Body height 151.1 cm Destiney Helder PACKING SUPERVISOR.WEB CONTENT SPECIALIST Work Phone: [facility] 12-24-2023 12:58-0400 Body mass index (BMI) [Ratio] 30.58 kg/m2 Destiney Henderson PACKING SUPERVISOR.WEB CONTENT SPECIALIST Work Phone: [facility] 12-24-2023 12:58-0400 Body weight 69.85 kg Destiney Helder PACKING SUPERVISOR.WEB CONTENT SPECIALIST Work Phone: [facility] 12-24-2023 12:58-0400 Diastolic blood pressure 82 mm[Hg] Destiney Henderson PACKING SUPERVISOR.WEB CONTENT SPECIALIST Work Phone: [facility] 12-24-2023 12:58-0400 Systolic blood pressure 126 mm[Hg] Destiney Henderson PACKING SUPERVISOR.WEB CONTENT SPECIALIST Work Phone: [facility] 11-18-2023 10:09-0400 Body temperature 98.29 [degF] Adriana Young PACKING SUPERVISOR.WEB CONTENT SPECIALIST Work Phone: [facility] 11-18-2023 10:09-0400 Body weight 70 kg Adriana Vidal PACKING SUPERVISOR.WEB CONTENT SPECIALIST Work Phone: [facility] 11-18-2023 10:09-0400 Diastolic blood pressure 72 mm[Hg] Adriana Young PACKING SUPERVISOR.WEB CONTENT SPECIALIST Work Phone: [facility] 11-18-2023 10:09-0400 Heart rate 80 /min Adriana Vidal PACKING SUPERVISOR.WEB CONTENT SPECIALIST Work Phone: [facility] 11-18-2023 10:09-0400 Respiratory rate 18 /min Adriana Vidal PACKING SUPERVISOR.WEB CONTENT SPECIALIST Work Phone: [facility] 11-18-2023 10:09-0400 SaO2% (BldA) [Mass fraction] 96 % Adriana Young PACKING SUPERVISOR.WEB CONTENT SPECIALIST Work Phone: [facility] 11-18-2023 10:09-0400 Systolic blood pressure 124 mm[Hg] Adriana Young PACKING SUPERVISOR.WEB CONTENT SPECIALIST Work Phone: [facility] 05-30-2023 14:00-0400 Diastolic blood pressure 81 mm[Hg] Andry Connelly MD Work Phone: [facility] 05-30-2023 14:00-0400 Heart rate 81 /min Andry Connelly MD Work Phone: [facility] 05-30-2023 14:00-0400 Respiratory rate 16 /min Andry Connelly MD Work Phone: [facility] 05-30-2023 14:00-0400 SaO2% (BldA) [Mass fraction] 99 % Andry Connelly MD Work Phone: [facility] 05-30-2023 14:00-0400 Systolic blood pressure 126 mm[Hg] Andry Connelly MD Work Phone: [facility] 05-30-2023 13:38-0400 Body temperature 98.1 [degF] Andry Connelly MD Work Phone: [facility] 05-30-2023 12:42-0400 Body height 152.4 cm Andry Connelly MD Work Phone: [facility] 05-30-2023 12:42-0400 Body mass index (BMI) [Ratio] 30.66 kg/m2 Andry Connelly MD Work Phone: [facility] 05-30-2023 12:42-0400 Body weight 71.22 kg Andry Connelly MD Work Phone: [facility] 05-21-2023 11:22-0400 Body height 149.9 cm Virginai Denbow PA-C Work Phone: [facility] 05-21-2023 11:22-0400 Body temperature 98.4 [degF] Virginia Denbow PA-C Work Phone: [facility] 05-21-2023 11:22-0400 Body weight 73.94 kg Virginia Denbow PA-C Work Phone: [facility] 05-21-2023 11:22-0400 Diastolic blood pressure 68 mm[Hg] Virginia Denbow PA-C Work Phone: [facility] 05-21-2023 11:22-0400 Heart rate 98 /min Virginia Denbow PA-C Work Phone: [facility] 05-21-2023 11:22-0400 Respiratory rate 12 /min Virginia Denbow PA-C Work Phone: [facility] 05-21-2023 11:22-0400 SaO2% (BldA) [Mass fraction] 99 % Virginia Denbow PA-C Work Phone: [facility] 05-21-2023 11:22-0400 Systolic blood pressure 124 mm[Hg] Virginia Denbow PA-C Work Phone: [facility] 04-30-2023 12:59-0400 Body height 149.9 cm Cande Kalka PA-C Work Phone: [facility] 04-30-2023 12:59-0400 Body weight 73.03 kg Cande Kalka PA-C Work Phone: [facility] 04-30-2023 12:59-0400 Diastolic blood pressure 72 mm[Hg] Cande Kalka PA-C Work Phone: [facility] 04-30-2023 12:59-0400 Heart rate 94 /min Cande Kalka PA-C Work Phone: [facility] 04-30-2023 12:59-0400 Systolic blood pressure 122 mm[Hg] Cande Kalka PA-C Work Phone: [facility] 10-16-2022 12:58-0500 Body height 152.4 cm Ifeoma Davis MD Work Phone: [facility] 10-16-2022 12:58-0500 Body temperature 97.81 [degF] Ifeoma Davis MD Work Phone: [facility] 10-16-2022 12:58-0500 Body weight 71.67 kg Ifeoma Davis MD Work Phone: [facility] 10-16-2022 12:58-0500 Diastolic blood pressure 70 mm[Hg] Ifeoma Davis MD Work Phone: [facility] 10-16-2022 12:58-0500 Heart rate 102 /min Ifeoma Davis MD Work Phone: [facility] 10-16-2022 12:58-0500 Respiratory rate 12 /min Ifeoma Davis MD Work Phone: [facility] 10-16-2022 12:58-0500 SaO2% (BldA) [Mass fraction] 97 % Ifeoma Davis MD Work Phone: [facility] 10-16-2022 12:58-0500 Systolic blood pressure 120 mm[Hg] Ifeoma Davis MD Work Phone: [facility] 06-25-2022 11:48-0400 Diastolic blood pressure 80 mm[Hg] Jonathon Eugene MD Work Phone: [facility] 06-25-2022 11:48-0400 Respiratory rate 16 /min Jonathon Eugene MD Work Phone: [facility] 06-25-2022 11:48-0400 SaO2% (BldA) [Mass fraction] 100 % Jonathon Eugene MD Work Phone: [facility] 06-25-2022 11:48-0400 Systolic blood pressure 141 mm[Hg] Jonathon Eugene MD Work Phone: [facility] 06-25-2022 11:36-0400 Body temperature 97.3 [degF] Jonathon Eugene MD Work Phone: [facility] 06-25-2022 09:44-0400 Body height 152.4 cm Jonathon Eugene MD Work Phone: [facility] 06-25-2022 09:44-0400 Body weight 70.31 kg Jonathon Eugene MD Work Phone: [facility] 06-25-2022 09:44-0400 Heart rate 92 /min Jonathon Eugene MD Work Phone: [facility] 06-20-2022 12:40-0400 Body height 152.4 cm Charlene Grossman MD Work Phone: [facility] 06-20-2022 12:40-0400 Body weight 70.31 kg Charlene Grossman MD Work Phone: [facility] 06-20-2022 12:40-0400 Diastolic blood pressure 70 mm[Hg] Charlene Grossman MD Work Phone: [facility] 06-20-2022 12:40-0400 Heart rate 88 /min Charlene Grossman MD Work Phone: [facility] 06-20-2022 12:40-0400 Respiratory rate 18 /min Charlene Grossman MD Work Phone: [facility] 06-20-2022 12:40-0400 SaO2% (BldA) [Mass fraction] 98 % Charlene Grossman MD Work Phone: [facility] 06-20-2022 12:40-0400 Systolic blood pressure 125 mm[Hg] Charlene Grossman MD Work Phone: [facility] 12-25-2021 13:03-0400 Body height 152.4 cm Ifeoma Davis MD Work Phone: [facility] 12-25-2021 13:03-0400 Body temperature 98.49 [degF] Ifeoma Davis MD Work Phone: [facility] 12-25-2021 13:03-0400 Body weight 73.03 kg Ifeoma Davis MD Work Phone: [facility] 12-25-2021 13:03-0400 Diastolic blood pressure 76 mm[Hg] Ifeoma Davis MD Work Phone: [facility] 12-25-2021 13:03-0400 Heart rate 100 /min Ifeoma Davis MD Work Phone: [facility] 12-25-2021 13:03-0400 Respiratory rate 12 /min Ifeoma Davis MD Work Phone: [facility] 12-25-2021 13:03-0400 SaO2% (BldA) [Mass fraction] 97 % Ifeoma Davis MD Work Phone: [facility] 12-25-2021 13:030400 Systolic blood pressure 132 mm[Hg] Ifeoma Davis MD Work Phone: [facility] 12-04-2021 13:040 Body height 152.4 cm Destiney Helder PACKING SUPERVISOR.WEB CONTENT SPECIALIST Work Phone: [facility] 12-04-2021 13:040 Body weight 74.39 kg Destiney Helder PACKING SUPERVISOR.WEB CONTENT SPECIALIST Work Phone: [facility] 12-04-2021 13:040 Diastolic blood pressure 72 mm[Hg] Destiney Helder PACKING SUPERVISOR.WEB CONTENT SPECIALIST Work Phone: [facility] 12-04-2021 13:0400 Systolic blood pressure 120 mm[Hg] Destiney Henderson PACKING SUPERVISOR.WEB CONTENT SPECIALIST Work Phone: [facility] Encounters Encounter Date Encounter Type Care Provider Facility Start: 07-13-2025 End: 07-13-2025 ambulatory STEPHENIE EDWIGE Facility:[facility] Start: 07-13-2025 ambulatory STEPHENIE EDWIGE Facility:[facility] Start: 07-13-2025 End: 07-13-2025 ambulatory [facility] Facility:[facility] Start: 07-10-2025 End: 07-10-2025 Emergency department patient visit [facility] Facility:[facility] Start: 07-06-2025 End: 07-06-2025 ambulatory [facility] Facility:[facility] Start: 07-05-2025 End: 07-05-2025 Emergency department patient visit [facility] Facility:[facility] Start: 06-30-2025 End: 07-01-2025 Evaluation and management of inpatient [facility] Facility:[facility] Start: 06-29-2025 End: 06-29-2025 Emergency department patient visit [facility] Facility:[facility] Start: 06-23-2025 End: 06-23-2025 Emergency department patient visit [facility] Facility:[facility] Start: 06-21-2025 End: 06-21-[address] Phillip Pozo DO -Cat [facility] Work Phone: Start: 06-21-2025 End: 06-21-2025 ambulatory [facility] Facility:[facility] Start: 06-17-2025 End: 06-17-2025 Emergency department patient visit Dr. Patti Piña DO -Emergency Department Work Phone: Start: 06-17-2025 Non-patient / Non-visit Dr. Jaja CORREIA -[facility] Work Phone: Start: 06-17-2025 Encounter for other preprocedural examination [facility] Start: 06-14-2025 End: 06-14-2025 ambulatory [facility] Facility:[facility] Start: 06-11-2025 ambulatory [facility] Facility :[facility] Start: 06-04-2025 End: 06-04-[address] Phillip Pozo DO -[facility] Work Phone: Start: 06-04-2025 End: 06-04-[address] Ifeoma Davis MD Work Phone: -[facility] Start: 06-03-2025 End: 06-03-[address] Michael Cameron MD -[facility] Work Phone: Start: 06-03-2025 End: 06-03-[address] Ifeoma Davis MD Work Phone: -[facility] Start: 05-27-2025 End: 05-27-2025 Emergency department patient visit Dr. Juan Manuel Turpin MD -Emergency Department Work Phone: Start: 05-27-2025 Patient encounter procedure IFEOMA DAVIS [facility] Start: 05-27-2025 End: 05-27-2025 [facility] Start: 05-17-2025 End: 05-17-2025 Telephone encounter Aislinn Reyes PA-C Work Phone: Pulmonary Medicine Comment on above: Refill Request Start: 05-07-2025 End: 05-07-[address] Ifeoma Davis MD Work Phone: -[facility] Start: 05-07-2025 End: 05-07-[address] Michael Cameron MD -[facility] Work Phone: Start: 05-07-2025 End: 05-07-2025 ambulatory [facility] Facility:[facility] Start: 04-28-2025 End: 04-29-2025 Telephone encounter Ifeoma Davis MD Work Phone: [facility] [place] Start: 04-22-2025 End: 04-22-2025 Telephone encounter Ifeoma Davis MD Work Phone: [facility] [place] Comment on above: Medication Problem Start: 04-22-2025 End: 04-22-2025 [facility] Facility:[facility] Start: 04-22-2025 End: 04-22-2025 Office outpatient visit 25 minutes Ifeoma Davis MD Work Phone: [facility] [place] Comment on above: Intertrigo (Primary Dx); Status post glaucoma surgery; Primary hypertension; DAYSI (obstructive sleep apnea); PXE (pseudoxanthoma elasticum); Poison boo dermatitis Start: 04-20-2025 End: 04-20-2025 [facility] Facility:[facility] Start: 04-20-2025 End: 04-20-2025 Postop follow up visit related to original px Cynthia Ramos MD Work Phone: [facility] Comment on above: Follow-up examinatio n after eye surgery (Primary Dx); Secondary glaucoma, indeterminate stage, bilateral Start: 04-16-2025 End: 04-16-[address] Edgar Beltran MD -[facility] Start: 04-16-2025 End: 04-16-[address] Ifeoma Davis MD Work Phone: -[facility] Start: 04-11-2025 End: 04-11-2025 Patient encounter procedure Aislinn Reyes PA-C Work Phone: [facility] [place] Comment on above: Viral URI with cough (Primary Dx) Start: 04-11-2025 End: 04-11-2025 ambulatory [facility] Facility:[facility] Start: 04-03-2025 End: 04-03-2025 Telephone encounter Shy Meier MD Work Phone: Ophthalmology Start: 04-02-2025 End: 04-02-2025 [facility] Facility:[facility] Start: 04-02-2025 End: 04-02-2025 Patient encounter procedure Adriana Lund MD Work Phone: Ophthalmology Comment on above: Follow-up examinatio n after eye surgery (Primary Dx) Start: 03-31-2025 End: 03-31-2025 Telephone encounter Ifeoma Davis MD Work Phone: [facility] [place] Comment on above: Medication Problem Refill Request Start: 03-30-2025 End: 03-31-2025 Telephone encounter Adriana Lund MD Work Phone: Ophthalmology Comment on above: Tearing OS Start: 03-26-2025 End: 03-26-2025 Telephone encounter Brittaney Mckeon MD Work Phone: Ophthalmology Start: 03-25-2025 End: 03-25-2025 [facility] Facility:[facility] Start: 03-24-2025 End: 03-24-2025 [facility] Facility:[facility] Start: 03-24-2025 Encounter for other preprocedural examination [facility] Start: 03-24-2025 End: 03-24-2025 Admission to establishment [facility] [place] 1 Work Phone: Pre Anesthesia Start: 03-24-2025 End: 03-24-2025 Anesthesia consultation [facility] [place] [facility] Work Phone: Pre Anesthesia Comment on [...] Start: 03-24-2025 End: 03-24-2025 Preprocedural examination done [facility] [place] 1 Work Phone: [facility] Work Phone: Start: 03-24-2025 End: 03-24-2025 Telephone encounter Janet Lowery MD Work Phone: Ophthalmology Comment on above: Patient Question Start: 03-23-2025 End: 03-23-2025 Telephone encounter Cynthia Ramos MD Work Phone: [facility] Comment on above: Appointment (Urgent issue.) Start: 03-23-2025 End: 03-23-2025 Office consultation new/estab patient 60 min Janet Lowery MD Work Phone: Ophthalmology Comment on above: Leaking of conjuncti rah drainage bleb (Primary Dx) Start: 03-23-2025 End: 03-23-2025 ambulatory [facility] Facility:[facility] Start: 03-16-2025 End: 03-19-2025 ambulatory Ifeoma Davis MD Work Phone: Internal Medicine [place] [phone] Start: 03-10-2025 End: 03-10-[address] Edgar Beltran MD -[facility] Start: 03-10-2025 End: 03-10-[address] Ifeoma Davis MD Work Phone: -[facility] Start: 03-02-2025 End: 03-02-2025 Nursing evaluation of patient and report Mi Nurse Work Phone: [facility] [place] Comment on above: Immunization due (Pr imary Dx) Start: 03-02-2025 End: 03-02-2025 ambulatory [facility] Facility:[facility] Start: 03-01-2025 End: 03-02-2025 Telephone encounter Ifeoma Davis MD Work Phone: [facility] [place] Comment on above: Orders Start: 02-25-2025 End: 02-25-2025 Telephone encounter Ifeoma Davis MD Work Phone: [facility] [place] Comment on above: TDAP order Start: 01-12-2025 End: 01-13-2025 Telephone encounter Michelle Chin APRN.WEB CONTENT SPECIALIST Work Phone: Neurology Comment on above: DME Order Request Start: 12-30-2024 End: 12-30-2024 Telephone encounter Michelle Chin APRN.WEB CONTENT SPECIALIST Work Phone: Neurology Comment on above: Results Start: 12-29-2024 End: 12-29-2024 Office outpatient visit 25 minutes Ifeoma Davis MD Work Phone: [facility] [place] Comment on above: Primary hypertension (Primary Dx); Depression, unspecified depression type; Trigger finger, unspecified finger, unspecified laterality; Hypokalemia; Anxiety; Legally blind; Sleep apnea, unspecified type Start: 12-29-2024 End: 12-29-2024 ambulatory [facility] Facility:[facility] Start: 12-23-2024 End: 12-23-2024 Refill Ifeoma Davis MD Work Phone: [facility] [place] Comment on above: Refill Request Start: 12-17-2024 End: 12-17-2024 Follow-up encounter Michelle Chin APRN.WEB CONTENT SPECIALIST Work Phone: Neurology Comment on above: Results Start: 12-09-2024 End: 12-09-[address] Phillip Pozo DO [facility] Work Phone: Start: 12-09-2024 End: 12-09-2024 ambulatory [facility] Facility[facility] Start: 12-07-2024 End: 12-08-2024 Telephone encounter Ifeoma Davis MD Work Phone: Internal Medicine [place] Comment on above: Patient Question Start: 12-01-2024 End: 12-07-2024 Telephone encounter Michelle Chin APRN.WEB CONTENT SPECIALIST Work Phone: Neurology Comment on above: Results Start: 11-24-2024 End: 11-24-[address] Ifeoma Davis MD Work Phone: [facility] Work Phone: Start: 11-24-2024 End: 11-24-2024 Patient encounter procedure Allie Prakash -Radiology, [place] Work Phone: Start: 11-24-2024 End: 11-24-[address] Edgar Beltran MD -[facility] Start: 11-24-2024 End: 11-24-2024 ambulatory [facility] Facility:[facility] Start: 11-24-2024 End: 11-24-2024 ambulatory [facility] Facility:[facility] Start: 11-20-2024 End: 11-20-2024 Telephone encounter David Anna APRN.WEB CONTENT SPECIALIST Work Phone: Internal Medicine [place] Comment on above: Results, Lab Start: 11-19-2024 End: 11-19-2024 ambulatory [facility] Facility:[facility] Start: 11-19-2024 End: 11-19-2024 Patient encounter procedure David Anna APRN.WEB CONTENT SPECIALIST Work Phone: Internal Medicine [place] Comment on above: Hypertension, unspec ified type (Primary Dx); Dry mouth; Depression, unspecified depression type; Anxiety; Other fatigue; DAYSI (obstructive sleep apnea) Start: 11-17-2024 End: 12-18-2024 Patient encounter procedure [facility] [place] Bed 1 [facility] Comment on above: Snoring; Excessive daytime sleepiness; Non-restorative sleep; PLMD (periodic limb movement disorder); Primary hypertension Start: 11-17-2024 End: 11-17-2024 ambulatory KIMBERLEY SLATYFORK [facility] Start: 11-05-2024 End: 11-05-2024 Follow-up encounter Ifeoma Davis MD Work Phone: Geriatrics Start: 11-03-2024 End: 11-03-2024 ambulatory [facility] Facility:[facility] Start: 11-03-2024 End: 11-03-2024 Office outpatient visit 25 minutes Ifeoma Davis MD Work Phone: Internal Medicine [place] Comment on above: Vitamin D deficiency (Primary Dx); Dry mouth; Vitamin B12 deficiency; Iron deficiency; Other fatigue Start: 11-02-2024 End: 11-02-2024 Follow-up encounter Britta ESCUDERO Work Phone: [place] [facility] Start: 10-31-2024 End: 10-31-2024 ambulatory [facility] Facility:[facility] Start: 10-31-2024 End: 10-31-2024 Patient encounter procedure Chantalrafy Salmonk PACKING SUPERVISOR.WEB CONTENT SPECIALIST Work Phone: [place] [facility] Comment on above: Dysuria (Primary Dx) ; Acute lower UTI Start: 10-22-2024 End: 12-22-2024 Follow-up encounter Destiney Pendleton APRN.CNP Work Phone: OB/Gynecology Start: 10-21-2024 End: 10-21-2024 ambulatory [facility] Facility:[facility] Start: 10-21-2024 Encounter for gynecological examination (general) (routine) without abnormal findings IFEOMA DAVIS [facility] Start: 10-21-2024 End: 10-21-2024 Patient encounter status Screen [facility] Start: 10-21-2024 End: 10-21-2024 Subsequent hospital visit by physician [facility] Comment on above: Encounter for gyneco logical examination (general) (routine) without abnormal findings [Z01.419] Start: 10-13-2024 End: 10-13-2024 [facility] Facility:[facility] Start: 10-13-2024 End: 10-13-2024 Office outpatient visit 15 minutes Cynthia Ramos MD Work Phone: [facility] Comment on above: Secondary glaucoma, indeterminate stage, bilateral (Primary Dx); Angioid streaks of macula; Pseudoxanthoma elasticum Start: 10-12-2024 End: 10-12-2024 [facility] Facility:[facility] Start: 10-12-2024 End: 10-12-2024 Office outpatient visit 25 minutes Ifeoma Davis MD Work Phone: Internal Medicine [place] Comment on above: Anxiety (Primary Dx) ; Screening for depression; Encounter for screening examination for other mental health and behavioral disorders; Dry mouth; Insomnia, unspecified type; Current moderate episode of major depressive disorder without prior episode (HCC) Start: 10-07-2024 End: 10-07-2024 ambulatory CALLI Clint ZABRINA Facility:[facility] Start: 10-07-2024 End: 10-07-2024 Patient encounter procedure Calli Clint Zabrina PACKING SUPERVISOR.WEB CONTENT SPECIALIST Work Phone: Internal Medicine [place] Comment on above: Memory impairment (P rimary Dx); Dry mouth; Depression, unspecified depression type Start: 10-07-2024 End: 10-12-2024 Telephone encounter Ifeoma Davis MD Work Phone: Internal Medicine [place] Comment on above: Future Appointment Patient Question Start: 09-29-2024 End: 09-29-2024 [facility] Facility:[facility] Start: 09-29-2024 End: 09-29-2024 Office outpatient visit 25 minutes Ifeoma Davis MD Work Phone: Internal Medicine [place] Comment on above: Depression, unspecif ied depression type (Primary Dx); Encounter for immunization; Insomnia, unspecified type Start: 09-25-2024 End: 04-10-2025 Telephone encounter Michelle Chin APRN.WEB CONTENT SPECIALIST Work Phone: Neurology Comment on above: Motor Hotel Manager - O ther Start: 09-24-2024 End: 09-24-2024 Patient encounter procedure Michelle Chin APRN.WEB CONTENT SPECIALIST Work Phone: Neurology Comment on above: Excessive daytime sl eepiness (Primary Dx); Non-restorative sleep Start: 09-24-2024 End: 09-24-2024 [facility] Facility:[facility] Start: 09-15-2024 End: 09-15-2024 ambulatory [facility] Facility:[facility] Start: 09-15-2024 End: 09-15-2024 Patient encounter procedure Destiney Pendleton APRN.WEB CONTENT SPECIALIST Work Phone: OB/Gynecology Comment on above: Vasomotor symptoms d ue to menopause (Primary Dx) Start: 09-08-2024 End: 09-08-2024 Refill Ifeoma Davis MD Work Phone: Internal Medicine [place] Comment on above: Refill Request Start: 08-12-2024 End: 04-13-2025 Telephone encounter Ifeoma Davis MD Work Phone: Internal Medicine [place] Comment on above: Patient Update Start: 08-10-2024 End: 08-10-2024 ambulatory Akanksha Ross MA [facility] [place] Start: 08-10-2024 End: 08-10-2024 Patient encounter procedure Akanksha Ross MA [facility] Comment on above: Population Health Na vigation Outreach ([facility]) Start: 07-27-2024 End: 08-05-2024 Telephone encounter Ifeoma Davis MD Work Phone: [facility] Comment on above: Results Start: 07-22-2024 End: 07-22-2024 ambulatory [facility] Facility:[facility] Start: 07-15-2024 End: 07-15-2024 ambulatory [facility] Start: 07-10-2024 End: 07-10-2024 Telephone encounter Ifeoma Davis MD Work Phone: [facility] Comment on above: Fax Request Start: 07-09-2024 End: 07-09-2024 Telephone encounter Adriana Vidal APRN.WEB CONTENT SPECIALIST Work Phone: [place] [facility] Comment on above: Results Start: 07-08-2024 End: 07-08-2024 Patient encounter procedure Letty Kay APRN.WEB CONTENT SPECIALIST Work Phone: [place] [facility] Comment on above: Close exposure to [place] VID-19 virus (Primary Dx) Start: 07-07-2024 End: 07-09-2024 Refill Ifeoma Davis MD Work Phone: [facility] Comment on above: Refill Request Orders Start: 06-29-2024 End: 06-30-2024 Refill Ifeoma Davis MD Work Phone: [facility] [place] Comment on above: Refill Request Start: 06-15-2024 End: 06-15-2024 ambulatory Chana Bridges MA [facility] [place] Start: 06-15-2024 End: 06-15-2024 Patient encounter [facility] Comment on above: Population Health Na vigation Outreach (Med Adherence) Start: 06-12-2024 End: 06-12-2024 ambulatory Akanksha Ross MA [facility] [place] Start: 06-12-2024 End: 06-12-2024 Patient encounter procedure [facility] Ross [facility] Comment on above: Population Health Na vigation Outreach ([facility] [place] [facility] Start: 05-29-2024 End: 05-29-2024 ambulatory Eileen Quinteros [facility] [place] Start: 05-29-2024 End: 05-29-2024 Patient encounter [facility] Comment on above: Population Health Na vigation Outreach (Med adherence ) Start: 05-14-2024 End: 06-29-2024 Telephone encounter Ifeoma Davis MD Work Phone: Internal Medicine [place] Comment on above: Patient Question Start: 05-06-2024 End: 05-11-2024 Telephone encounter Cynthia Ramos MD Work Phone: [facility] Comment on above: Letter Start: 05-01-2024 End: 05-06-2024 Telephone encounter Cynthia Ramos MD Work Phone: [facility] Comment on above: Letter Start: 2024 End: 2024 Refill Ifeoma Davis MD Work Phone: Internal Medicine [place] Comment on above: Refill Request Start: 04-13-2024 Telephone encounter Cynthia cheatham MD Work Phone: [facility] Comment on above: Patient Update Start: 04-11-2024 End: 04-11-2024 Patient encounter procedure Britta ESCUDERO Work Phone: [place] [facility] Comment on above: Allergic contact roman matitis due to plants, except food (Primary Dx) Start: 04-02-2024 Telephone encounter Ifeoma deluna MD Work Phone: Internal Medicine [place] Comment on above: Results Start: 03-31-2024 End: 03-31-2024 Office outpatient visit 25 minutes Ifeoma Davis MD Work Phone: Internal Medicine [place] Comment on above: Annual wellness visi t (Primary Dx); 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 injury; Primary hypertension; Trigger finger, unspecified finger, unspecified laterality; Special screening examination for viral disease; Screening for HIV (human immunodeficiency virus); Legally blind; Mixed hyperlipidemia Start: 03-31-2024 End: 03-31-2024 Patient encounter procedure Ifeoma Davis MD Work Phone: [facility] Start: 03-17-2024 ambulatory Ifeoma Sampson Work Phone: Internal Medicine [place] [id number] Start: 02-18-2024 End: 02-18-2024 Office outpatient visit 15 minutes Cynthia Ramos MD Work Phone: [facility] Comment on above: Secondary glaucoma, indeterminate stage, bilateral (Primary Dx); Pseudoxanthoma elasticum; Angioid streaks of macula; Pseudophakia of both eyes; Legally blind Start: 01-01-2024 Refill David Anna APRN, .CNP Work Phone: Internal Medicine [place] Comment on above: Refill Request Start: 12-25-2023 Telephone encounter David Anna APRN.CNP Work Phone: Internal Medicine [place] Comment on above: Medication Request Start: 12-24-2023 End: 12-24-2023 Patient encounter procedure Destiney Pendleton APRN.CNP Work Phone: OB/Gynecology Comment on above: Encounter for gyneco logical examination (general) (routine) without abnormal findings (Primary Dx); Encounter for screening for human papillomavirus (HPV); Pap smear for cervical cancer screening; Encounter for screening mammogram for breast cancer Start: 12-24-2023 End: 12-24-2023 Patient encounter status Destiney Pendleton PACKING SUPERVISOR.WEB CONTENT SPECIALIST Work Phone: [facility] Start: 12-04-2023 End: 12-04-[address] Ifeoma Davis Work Phone: [facility] Work Phone: Start: 12-04-2023 End: 12-04-[address] Ifeoma Davis Work Phone: [facility] Work Phone: Start: 11-18-2023 End: 11-18-2023 Patient encounter procedure Adriana King MURTAZA.WEB CONTENT SPECIALIST Work Phone: [facility] Comment on above: Bacterial sinusitis (Primary Dx) Start: 11-13-2023 Refill Ifeoma Sampson Work Phone: Internal Medicine [place] Comment on above: Refill Request Start: 11-06-2023 End: 11-06-[address] Ifeoma Davis Work Phone: [facility] Work Phone: Start: 10-25-2023 ambulatory [facility] [place] Comment on above: Population Health Na vigation Outreach ([place] [facility]) Start: 10-11-2023 Documentation procedure Mammog lien Coordinator [facility] Start: 10-11-2023 Letter encounter Mammography Coordinator [facility] Start: 10-10-2023 End: 10-10-2023 Subsequent hospital visit by physician [facility] Comment on above: Encounter for screen ing mammogram for breast cancer [Z12.31] Start: 10-08-2023 Telephone encounter Ifeoma deluna MD Work Phone: Internal Medicine [place] Comment on above: Patient Update Start: 10-04-2023 ambulatory Mary Salinas [facility] [place] Comment on above: Population Health Na vigation Outreach ([place] [facility] ) Start: 07-23-2023 Refill Virginia Avalos PA-C Work Phone: Internal Medicine [place] Comment on above: Refill Request Start: 06-25-2023 Refill Ifeoma Sampson Work Phone: [address] [place] [address] Comment on above: Erroneous encounter- disregard Start: 05-30-2023 End: 05-30-2023 Subsequent hospital visit by physician Andry Connelly MD Work Phone: Ambulatory Surgery Comment on above: Gastroesophageal ref lux disease, unspecified whether esophagitis present [K21.9] Start: 05-27-2023 ambulatory Andry Connelly MD Work Phone: Ambulatory Surgery Start: 05-21-2023 End: 05-21-2023 Patient encounter procedure Virginia Avalos PA-C Work Phone: Internal Medicine [place] Comment on above: Legally blind (Prima ry Dx); PXE (pseudoxanthoma elasticum); Trigger finger, unspecified finger, unspecified laterality; Mixed hyperlipidemia; Primary hypertension; Swelling of both hands; Gastroesophageal reflux disease with esophagitis, unspecified whether hemorrhage Start: 05-07-2023 Telephone encounter Ifeoma deluna MD Work Phone: Internal Medicine [place] Comment on above: Handicapped Placard Renewal Start: 05-03-2023 Refill Calli Anna APRN, .CNP Work Phone: Internal Medicine [place] Comment on above: Refill Request Start: 04-30-2023 End: 04-30-2023 Patient encounter procedure aCnde Pozo PA-C Work Phone: Gastroenterology [place] Comment on above: Gastroesophageal ref lux disease, unspecified whether esophagitis present (Primary Dx); Change in bowel habits Start: 04-25-2023 End: 04-25-2023 Patient encounter procedure Massimo Roberts MD Work Phone: Orthopaedics Comment on above: Numbness and tinglin g in right hand (Primary Dx) Start: 04-09-2023 Telephone encounter Ifeoma deluna MD Work Phone: Internal Medicine [place] Comment on above: requesting lab order Start: 02-19-2023 End: 02-19-2023 Office outpatient visit 15 minutes Cynthia Ramos MD Work Phone: [facility] Comment on above: Secondary glaucoma, indeterminate stage, bilateral (Primary Dx); Pseudoxanthoma elasticum; Pseudophakia of both eyes Start: 01-27-2023 Refill David Anna APRN, .CNP Work Phone: Internal Medicine [place] Comment on above: Refill Request Start: 01-01-2023 End: 01-01-2023 ambulatory [facility] Work Phone: Start: 01-01-2023 End: 01-01-2023 Discharged Recurring [facility]-Occupational Therapy Start: 12-12-2022 Refill Ifeoma Sampson Work Phone: [facility] Comment on above: Refill Request (SEE RX NOTES) Start: 12-04-2022 End: 12-04-2022 Postop follow up visit related to original px Cynthia Ramos MD Work Phone: [facility] Comment on above: Follow-up exam (Prim terra Dx); Vitreous prolapse of left eye Start: 11-22-2022 End: 11-22-2022 Postop follow up visit related to original px Cynthia Ramos MD Work Phone: [facility] Comment on above: Follow-up exam (Prim terra Dx) Start: 11-19-2022 End: 11-19-2022 Patient encounter procedure Taina Fan PA-C Work Phone: Orthopaedics Comment on above: Trigger ring finger of right hand (Primary Dx); Trigger middle finger of left hand Follow-up exam (Prim terra Dx) Start: 11-19-2022 Telephone encounter Henrik Chen MD Work Phone: [facility] Comment on above: Eye Problem Patient Question; Nu rse To Address Start: 11-16-2022 End: 11-16-2022 Patient encounter procedure Cynthia Ramos MD Work Phone: [facility] Comment on above: Follow-up exam (Prim terra Dx) Start: 11-13-2022 Telephone encounter Cynthia cheatham MD Work Phone: [facility] Comment on above: Appointment Start: 11-07-2022 End: 11-07-2022 ambulatory MASSIMOCANDELARIA ROBERTS [facility] Start: 11-05-2022 Telephone encounter Massimo monterroso MD Work Phone: Orthopaedics Comment on above: Patient Question Start: 11-01-2022 Telephone encounter Massimo monterroso MD Work Phone: Orthopaedics Comment on above: Appointment (Siena ding regarding surgery) Start: 10-31-2022 End: 10-31-2022 ambulatory WOLF MASON Facility:[id number] Start: 10-31-2022 End: 10-31-2022 ambulatory Michelle Perez OT/L [facility] [place] Comment on above: Blindness right eye category 3, blindness left eye category 4 (Primary Dx); Complaints of difficulty with reading; Difficulty with household tasks; Impaired mobility and personal care; Personal care impairment Start: 10-29-2022 End: 10-29-2022 Patient encounter procedure [facility] [place] Work Phone: [facility] Comment on above: Nuclear sclerotic ca taract of left eye (Primary Dx) Start: 10-26-2022 Telephone encounter Cynthia cheatham MD Work Phone: [facility] Comment on above: Returning Patient's Call (ascan) Start: 10-23-2022 End: 10-23-2022 Subsequent hospital visit by physician [facility] 1 Work Phone: Radiology Comment on above: Abnormal mammogram [ R92.8] Start: 10-17-2022 End: 10-17-2022 ambulatory WOLF MASON Facility:[id number] Start: 10-17-2022 End: 10-17-2022 ambulatory Michelle Perez OT/[facility] [place] Comment on above: Difficulty with hous ehold tasks (Primary Dx); Blindness right eye category 3, blindness left eye category 4; Impaired mobility and personal care; Personal care impairment; Complaints of difficulty with reading Start: 10-16-2022 End: 10-16-2022 Patient encounter procedure Ifeoma Davis MD Work Phone: Internal Medicine [place] Comment on above: Gastroesophageal ref lux disease with esophagitis, unspecified whether hemorrhage (Primary Dx); Pre-operative clearance; Trigger finger, unspecified finger, unspecified laterality; Primary hypertension; Mixed hyperlipidemia; PAD (peripheral artery disease) (HCC); PXE (pseudoxanthoma elasticum); Hot flashes Start: 10-16-2022 End: 10-16-2022 Preoperative state Ifeoma Davis MD Work Phone: Internal Medicine [place] Start: 10-09-2022 Telephone encounter Liliya medrano MD Work Phone: Mammography Comment on above: Mammogram Result Favio l Back Start: 10-09-2022 End: 10-09-2022 Subsequent hospital visit by physician [facility] [place] Work Phone: Radiology Start: 10-02-2022 Telephone encounter Ifeoma deluna MD Work Phone: Internal Medicine [place] Comment on above: Medication Request Start: 10-01-2022 End: 10-01-2022 Orders Only Massimo Roberts MD Work Phone: Orthopaedics Comment on above: Pain in both hands ( Primary Dx) Schedule Surgery Trigger ring finger of right hand (Primary Dx); Trigger middle finger of left hand Pain in both hands [ M79.641, M79.642] Start: 09-28-2022 Documentation procedure Mammog lien Coordinator [facility] Start: 09-28-2022 Letter encounter Mammography Coordinator [facility] Start: 09-28-2022 Telephone encounter Destiney davis APRN.CNP Work Phone: OB/Gynecology Comment on above: Orders Start: 09-27-2022 ambulatory Ifeoma Sampson Work Phone: Internal Medicine [place] Comment on above: Upcoming visit on Start: 09-27-2022 Patient encounter procedure Ifeoma Davis MD Work Phone: Internal Medicine [place] Start: 09-27-2022 End: 09-27-2022 Subsequent hospital visit by physician [facility] Comment on above: Encounter for screen ing mammogram for breast cancer [Z12.31] Start: 09-25-2022 End: 09-25-2022 Patient encounter procedure Cynthia Ramos MD Work Phone: [facility] Comment on above: Nuclear senile catar act of left eye (Primary Dx); Primary open angle glaucoma (POAG) of left eye, severe stage Start: 09-19-2022 End: 09-19-2022 ambulatory WOLF MASON Facility:[id number] Start: 09-19-2022 Telephone encounter Wolf Mcpherson vinay OD Work Phone: [facility] Comment on above: Follow Up Phone Call Start: 09-19-2022 End: 09-19-2022 ambulatory Michelle Perez OT/L [facility] [place] Comment on above: Blindness right eye category 3, blindness left eye category 4 (Primary Dx); Difficulty with household tasks; Impaired mobility and personal care; Personal care impairment; Complaints of difficulty with reading Start: 08-16-2022 End: 08-16-2022 Patient encounter procedure Wolf Milesdonato OD Work Phone: [facility] Comment on above: Blindness right eye category 3, blindness left eye category 4 (Primary Dx); Pseudophakia, right eye; Combined forms of age-related cataract, left eye; Hyperopia of right eye Start: 08-10-2022 Refill Ifeoma Sampson Work Phone: Internal Medicine [place] Comment on above: Refill Request Start: 07-24-2022 End: 07-24-2022 Patient encounter procedure Jonathon Eugene MD Work Phone: Ophthalmology Comment on above: Pseudophakia, right eye (Primary Dx) Start: 07-23-2022 Refill Destiney Pendleton APRN.CNP Work Phone: OB/Gynecology Comment on above: Refill Request Medication Problem ( flonase) Start: 07-04-2022 Telephone encounter Ifeoma deluna MD Work Phone: Internal Medicine [place] Comment on above: Patient Update Start: 07-03-2022 End: 07-03-2022 Patient encounter procedure Jonathon Eugene MD Work Phone: Ophthalmology Comment on above: Pseudophakia, right eye (Primary Dx) Start: 06-29-2022 End: 06-29-2022 Patient encounter procedure Valentine Layne Brian OD Work Phone: Ophthalmology Comment on above: Photopsia (Primary D x); Pseudophakia, right eye; Combined forms of age-related cataract, left eye; Primary open angle glaucoma (POAG) of both eyes, indeterminate stage; Angioid streaks of macula Start: 06-28-2022 Telephone encounter Jonathon graves MD Work Phone: [facility] Comment on above: Motor Hotel Manager - O ther Cough Start: 06-26-2022 End: 06-26-2022 Patient encounter procedure Jonathon Eugene MD Work Phone: [facility] Comment on above: Pseudophakia (Primar y Dx) Start: 06-25-2022 ambulatory JONATHON EUGENE Facility: [facility] Start: 06-25-2022 End: 06-25-2022 Subsequent hospital visit by physician Jonathon Eugene MD Work Phone: [facility] Comment on above: 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 [H25.811]Photopsia [H53.19] Start: 06-22-2022 Refill Jonathon Eugene MD Work Phone: [facility] Comment on above: Refill Request (Pre- op drops) Medication Problem Start: 06-20-2022 Telephone encounter Jonathon graves MD Work Phone: [facility] Comment on above: Appointment Start: 06-20-2022 End: 06-20-2022 Patient encounter procedure Charlene Grossman MD Work Phone: [facility] Card[facility] [place] Comment on above: PXE (pseudoxanthoma elasticum) (Primary Dx); Obesity, Class I, BMI 30-34.9 Start: 05-11-2022 Refill Ifeoma Sampson Work Phone: [facility] Comment on above: Refill Request Patient Question (Re quest medication not on med list please) Start: 05-03-2022 End: 05-03-2022 Patient encounter procedure Massimo Roberts MD Work Phone: Orthopaedics Comment on above: Pain in both hands ( Primary Dx); Trigger middle finger of left hand; Trigger ring finger of right hand Start: 04-25-2022 Telephone encounter Jonathon graves MD Work Phone: [facility] Comment on above: Preparations For Sharath [...] encounter procedure Cynthia Ramos MD Work Phone: [facility] Comment on above: Primary open angle g laucoma (POAG) of both eyes, indeterminate stage (Primary Dx); Corneal dellen of left eye; Nuclear senile cataract of right eye Start: 03-20-2022 ambulatory Ifeoma Sampson Work Phone: [facility] Start: 03-14-2022 End: 03-14-2022 Patient encounter procedure Jonathon Eugene MD Work Phone: Ophthalmology Comment on above: Photopsia (Primary D x); Primary open angle glaucoma (POAG) of both eyes, indeterminate stage; Combined form of age-related cataract, both eyes; Marginal corneal ulcer of left eye; Angioid streaks of macula Start: 03-02-2022 Telephone encounter Jonathon graves MD Work Phone: [facility] Comment on above: Lab & Test Results Start: 02-27-2022 End: 02-27-2022 Patient encounter procedure Jonathon Eugene MD Work Phone: [facility] Comment on above: Photopsia (Primary D x); Primary open angle glaucoma (POAG) of both eyes, indeterminate stage; Combined form of age-related cataract, both eyes; Marginal corneal ulcer of left eye Start: 02-10-2022 Telephone encounter Alise Dejesus APRN.WEB CONTENT SPECIALIST Work Phone: [facility] Comment on above: Results Start: 02-09-2022 Refill Ifeoma Sampson Work Phone: Internal Medicine [place] Comment on above: Refill Request Start: 02-07-2022 Telephone encounter Jonathon graves MD Work Phone: [facility] Comment on above: Medication Problem Start: 01-12-2022 Refill Destiney Pendleton APRN.WEB CONTENT SPECIALIST Work Phone: OB/Gynecology Comment on above: Refill Request Start: 12-25-2021 End: 12-25-2021 Patient encounter procedure Ifeoma Davis MD Work Phone: Internal Medicine [place] Comment on above: PXE (pseudoxanthoma elasticum) (Primary Dx); Vertigo; Memory deficits; New daily persistent headache; Chronic mixed headache syndrome Start: 12-19-2021 End: 12-19-2021 Patient encounter procedure Cynthia Ramos MD Work Phone: [facility] Comment on above: Follow-up exam (Prim terra Dx); Photopsia; 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 Start: 12-07-2021 Telephone encounter Ifeoma deluna MD Work Phone: Internal Medicine [place] Comment on above: Patient Question Start: 12-04-2021 End: 12-04-2021 Patient encounter procedure Destiney Pendleton PACKING SUPERVISOR.WEB CONTENT SPECIALIST Work Phone: OB/Gynecology Comment on above: Encounter for gyneco logical examination (general) (routine) without abnormal findings (Primary Dx); Encounter for screening mammogram for breast cancer Start: 12-04-2021 End: 12-04-2021 Patient encounter status Destiney Pendleton PACKING SUPERVISOR.WEB CONTENT SPECIALIST Work Phone: OB/Gynecology Start: 11-28-2021 End: 11-28-2021 Patient encounter procedure Cynthia Ramos MD Work Phone: [facility] Comment on above: Follow-up exam (Prim terra Dx) Procedures Date Procedure Procedure Detail Performing Clinician Start: 06-29-2025 Urnls dip stick/tablet reagent auto microscopy Dr. Ifeoma Davis MD Work Phone: Start: 06-29-[address] Saray Davis MD Work Phone: Start: 06-23-[address] Saray Davis MD Work Phone: Start: 06-23-2025 CT angiography of head and neck Dr. Rogelio Davis MD Work Phone: Start: 06-23-2025 CT of head without contrast Dr. Ifeoma alcala MD Work Phone: Start: 06-21-2025 MRI of lower extremity Dr. Ifeoma Davis MD Work Phone: Start: 06-17-2025 CT [...] Work Phone: Start: 11-17-2024 Polysomnogram Michelle Chin APRN.WEB CONTENT SPECIALIST Work Phone: Start: 10-31-2024 Urnls dip stick/tablet rgnt auto w/o microscopy [facility] Provider Start: 10-13-2024 Computerized ophthalmic imaging retina Cynthia Ramos MD Work Phone: Start: 10-12-2024 Adult depression screening assessment Michelle Chin APRN.WEB CONTENT SPECIALIST Work Phone: Start: 03-27-2024 Lipid 1996 panel [...] uni real time with image limited Destiney Henderson PACKING SUPERVISOR.WEB CONTENT SPECIALIST Work Phone: Start: 10-23-2022 Digital breast tomosynthesis unilateral Destiney Henderson PACKING SUPERVISOR.WEB CONTENT SPECIALIST Work Phone: Start: 10-16-2022 Ecg routine ecg w/least 12 lds i&r only [facility] Provider Start: 10-15-2022 Lipid 1996 panel - Serum or Plasma Massimo Roberts MD Work Phone: Start: 10-09-2022 Radex shoulder complete minimum 2 views [facility] Provider Start: 10-01-2022 Radex hand minimum 3 views Massimo levin MD Work Phone: Start: 09-27-2022 End: 09-27-2022 Mammography Destiney Helder PACKING SUPERVISOR.WEB CONTENT SPECIALIST Work Phone: Start: 06-29-2022 Computerized ophthalmic imaging [...] DTaP,Tdap,Td Vaccine (2 - Td or Tdap) [facility] Start: 03-27-2029 Lipid panel Lipid Screening [facility] Start: 12-23-2028 Screening for malignant neoplasm of cervix [facility] Start: 05-30-[address] [facility] Start: 05-30-2028 Colorectal Cancer Screening Colorectal Cancer Screening [facility] Start: 05-30-2028 Screening for malignant neoplasm of colon [facility] Start: 03-24-2028 Diabetes Screening Diabetes Screening [facility] Start: 11-20-2027 Diabetes Screening Diabetes Screening [facility] Start: 10-15-2027 Lipid 1996 panel - Serum or Plasma Lipid Screening [facility] Start: 10-15-2027 Lipid panel Lipid Screening [facility] Start: 10-15-2027 L[address] S[address]EN L[address]ID SCREEN [facility] Start: 03-27-2027 Diabetes Screening Diabetes Screening [facility] Start: 08-15-2026 LIPID SCREEN LIPID SCREEN [facility] Start: 05-21-2026 Diabetes Screening Diabetes Screening [facility] Start: 05-04-2026 End: 10-11-2026 VISUAL FIELD 24-2 OU (BOTH EYES) VISUAL FIELD 24-2 OU (BOTH EYES) [facility] Imaging Routine Secondary glaucoma, indeterminate stage, bilateral Expected: 05/04/2026, Expires: 10/11/2026 [facility] Work Phone: Comment on above: Expected: 05/04/2026, Expires: Start: 04-22-2026 Annual PCP Team Chronic Disease Visit Annual PCP Team Chronic Disease Visit [facility] Start: 12-29-2025 Annual PCP Team Chronic Disease Visit Annual PCP Team Chronic Disease Visit [facility] Start: 12-29-2025 BP Controlled (<130/80) BP Controlled (<130/80) [facility] Start: 11-19-2025 Annual PCP Team Chronic Disease Visit Annual PCP Team Chronic Disease Visit [facility] Start: 11-19-2025 BP Controlled (<130/80) BP Controlled (<130/80) [facility] Start: 11-03-2025 Annual PCP Team Chronic Disease Visit Annual PCP Team Chronic Disease Visit [facility] Start: 11-03-2025 BP Controlled (<130/80) BP Controlled (<130/80) [facility] Start: 10-21-2025 Screening for malignant neoplasm of breast Mammogram Screening [facility] Start: 10-15-2025 DIABETES SCREEN DIABETES SCREEN [facility] Start: 10-12-2025 Annual PCP Team Chronic Disease Visit Annual PCP Team Chronic Disease Visit [facility] Start: 10-12-2025 Anxiety Screening Anxiety Screening [facility] Start: 10-12-2025 BP Controlled (<130/80) BP Controlled (<130/80) [facility] Start: 10-12-2025 Covid-19 Vaccine () Covid-19 Vaccine () [facility] Comment on above: Postponed from 05/03/2024 (Declined at t his time) Start: 10-12-2025 Depression Screening Depression Screening [facility] Start: 10-07-2025 Annual PCP Team Chronic Disease Visit Annual PCP Team Chronic Disease Visit [facility] Start: 10-07-2025 BP Controlled (<130/80) BP Controlled (<130/80) [facility] Start: 09-29-2025 Annual PCP Team Chronic Disease Visit Annual PCP Team Chronic Disease Visit [facility] Start: 09-15-2025 BP Controlled (<130/80) BP Controlled (<130/80) [facility] Start: 07-23-2025 End: 07-23-2025 Patient encounter procedure 07/23/2025 2:00 PM EST Office Visit Internal Medicine [place] [address] [place], [place] [phone] Ifeoma Davis MD [address] [place], [place] [phone] 3 month F/U Internal Medicine [place] Comment on above: 3 month F/U Start: 07-10-2025 [facility] Start: 07-10-2025 End: 07-10-2025 Emergency department patient visit Departed Emergency -Emergency Department Work Phone: Start: 06-29-2025 SARS-CoV-2, Influenza & RSV (PCR) SARS-CoV-2, Influenza & RSV (PCR) [facility] Start: 06-29-2025 [facility] Start: 06-29-2025 Plain chest X-ray Chest 1 View (Portable) [facility] Start: 06-29-2025 End: 06-29-2025 Emergency department patient visit Departed Emergency -Emergency Department Work Phone: Start: 06-23-2025 [facility] Start: 06-23-2025 CT angiography of head and neck CTA Head AND Neck W/ Contrast [facility] Start: 06-23-2025 CT of head without contrast Brain/Head without Contrast [facility] Start: 06-23-2025 End: 06-23-2025 Emergency department patient visit Departed Emergency -Emergency Department Work Phone: Start: 06-21-2025 MRI of lower extremity Extremity Lower without Contra [facility] Start: 06-21-2025 Patient encounter procedure Registered Clinical -Cat Scan [facility] Work Phone: Start: 06-09-2025 End: 06-09-2025 Patient encounter procedure 06/09/2025 12:30 PM EDT Office Visit [facility] [address], [place] [address] Adriana Lund MD [address] [place] [address] Diagnostics[facility] [address] [place] [id number] 10 WEEK OUTCOME Ophthalmology Comment on above: 10 WEEK OUTCOME Start: 06-04-2025 Plain x-ray of pelvis and lower extremity HIP, UNI W/ Pelvis 2-3 Views [facility] Start: 06-04-2025 XR Pelvis and Hip Views [facility] Start: 05-27-2025 [facility] Start: 05-27-2025 End: 05-27-2025 Emergency department patient visit Departed Emergency -Emergency Department Work Phone: Start: 05-27-2025 End: 05-27-2025 Patient encounter procedure 05/27/2025 9:20 AM EDT Office Visit Internal Medicine [place] [address] [place] [address] Ifeoma Davis MD [address] [place] [address] [facility] [place] Comment on above: Wellness Start: 05-18-2025 End: 05-18-2025 Patient encounter procedure 05/18/2025 11:00 AM EDT Office Visit [facility] [address] [place] [address] Cynthia Ramos MD [address] [place] [phone] 4 week VaTa [facility] Comment on above: 4 week VaTa Start: 05-12-2025 End: 05-12-2025 Patient encounter procedure 05/12/2025 11:00 AM EDT Office Visit [facility] [address] [address] Adriana Lund MD [address] [place] [address] [facility] [address] [address] 6 WEEK OUTCOME Ophthalmology Comment on above: 6 WEEK OUTCOME Start: 05-03-2025 DIABETES SCREEN DIABETES SCREEN [facility] Start: 05-03-[address] [facility] Start: 04-28-2025 End: 04-28-2025 Patient encounter procedure 04/28/2025 11:00 AM EDT Office Visit [facility] [address] [address] Adriana Lund MD [address] [place] [address] [facility] [address] [address] 3 WEEK POST OP Ophthalmology Comment on above: 3 WEEK POST OP Start: 04-22-2025 End: 04-22-2025 Patient encounter procedure 04/22/2025 10:20 AM EDT Office Visit Internal Medicine [place] [address] [place] [address] Ifeoma Davis MD [address] [place] [address] 3 month follow up Internal Medicine [place] Comment on above: 3 month follow up Start: 04-20-2025 End: 04-20-2025 Patient encounter procedure 04/20/2025 9:30 AM EDT Office Visit [facility] [address] [place] [address] Cynthia Ramos MD [address] [place] [address] SP 6 months refraction HVF 24-2 large size V [facility] Comment on above: SP 6 months refraction HVF 24-2 large si ze V Start: 04-16-2025 X-ray of lumbosacral spine L/S Spine Bending Flex/Ext [facility] Start: 04-16-2025 XR Spine Lumbar and Sacrum Views [facility] Start: 04-12-2025 Subsequent hospital visit by physician 04/12/2025 Hospital Encounter Ophthalmology [address] [address] Janet Lowery MD [address] [facility] [place] [place] [address] 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, T81.31XA] Ophthalmology Comment on above: Leaking of conjunctival drainage bleb [H 59.89, T81.31XA] Start: 04-11-2025 BP Controlled (<130/80) BP Controlled (<130/80) [facility] Start: 04-06-2025 End: 04-06-2025 Patient encounter procedure 04/06/2025 2:15 PM EDT Office Visit [facility] [address] [address] Janet Lowery MD [address] [facility] [place] [address] Diagnostics, [facility] [address] [address] Michelle 04/06 for follow up Ophthalmology Comment on above: Michelle 04/06 for follow up Start: 04-02-2025 End: 04-02-2025 Patient encounter procedure Ophthalmology Comment on above: 1 WEEK POST OP Start: 03-31-2025 Annual PCP Team Chronic Disease Visit Annual PCP Team Chronic Disease Visit [facility] Start: 03-31-2025 BP Controlled (<130/80) BP Controlled (<130/80) [facility] Start: 03-30-2025 End: 03-30-2025 Patient encounter procedure 03/30/2025 2:00 PM EDT Office Visit Internal Medicine [place] [address] [place] [address] Ifeoma Davis MD [address] [place] [address] 3 month follow up Internal Medicine [place] Comment on above: 3 month follow up Start: 03-26-2025 End: 03-26-2025 Patient encounter procedure 03/26/2025 8:15 AM EDT Office Visit [facility] [address] [address] Adriana Lund MD [address] [place] [address] 1 DAY POST OP bleb leak repair OS Ophthalmology Comment on above: 1 DAY POST OP bleb leak repair OS Start: 03-25-2025 End: 03-25-2025 Admission to same day surgery center 03/25/2025 12:01 PM EDT - 03/25/2025 12:59 PM EDT Surgery Ophthalmology [address] [address] Adriana Lund MD [address] [address] 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 Ophthalmology Comment on above: REV OR 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 WOUND EYE ANTERI OR SEGMENT MAJOR Start: 03-25-2025 End: 03-25-2025 Anesthesia consultation 03/25/2025 12:01 PM EDT Anesthesia Event Ophthalmology [address] [address] Marquita Aj SRNA Ophthalmology Start: 03-25-2025 Subsequent hospital visit by physician 03/25/2025 12:01 PM EDT Hospital Encounter Ophthalmology [address] [address] Adriana Lund MD [address] [place] [address] 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, T81.31XA] Ophthalmology Comment on above: Leaking of conjunctival drainage bleb [H 59.89, T81.31XA] Start: 03-25-2025 End: 03-25-2025 Revj/rpr oprative wound anterior segment [facility] Start: 03-24-2025 End: 03-24-2025 Patient encounter procedure Neurology Comment on above: 31-90 day follow up Start: 03-16-2025 End: 06-15-2025 Lipid 1996 panel - Serum or Plasma LIPID PANEL, FASTING Lab Routine Mixed hyperlipidemia Expected: 03/16/2025, Expires: 06/15/2025 [facility] Work Phone: Comment on above: Expected: 03/16/2025, Expires: Start: 03-10-2025 X-ray of lumbar spine, two or three views Lumbar Spine 2 or 3 Views [facility] Start: 03-10-2025 XR Lumbar spine 2 or 3 Views [facility] Start: 03-02-2025 End: 03-02-2025 Nursing evaluation of patient and report 03/02/2025 12:45 PM EDT Nurse Visit [facility] [place] [address] [place], [place] [phone] Nurse, [place] [address] [place], [place] [phone] Tdap Family Medicine [place] Comment on above: Tdap Start: 03-01-2025 Influenza vaccination [facility] Comment on above: Postponed from 05/03/2024 (Declined at t his time) Start: 12-29-2024 End: 12-29-2024 Patient encounter procedure 12/29/2024 3:00 PM EDT Office Visit Internal Medicine [place] [address] [facility] [place], [place] [phone] Ifeoma Davis MD [address] [place] [address] 6 week follow up Internal Medicine [place] Comment on above: 6 week follow up Start: 11-27-2024 End: 02-26-2025 Basic metabolic 2000 panel - Serum or Plasma BASIC METABOLIC PANEL Lab Routine Hypokalemia Expected: 11/27/2024 (Approximate), Expires: 02/26/2025 [facility] Work Phone: Comment on above: Expected: 11/27/2024 (Approximate), Expi res: 02/26/2025 Start: 11-19-2024 End: 02-18-2025 Basic metabolic 2000 panel - Serum or Plasma [facility] Work Phone: Comment on above: Expected: 11/19/2024, Expires: Start: 11-19-2024 End: 11-19-2024 Patient encounter procedure 11/19/2024 1:00 PM EDT Office Visit Internal Medicine [place] [address] [place], [place] [phone] David Anna APRN.WEB CONTENT SPECIALIST [address] [place], [place] [phone] 2 wk follow up Internal Medicine [place] Comment on above: 2 wk follow up Start: 11-17-2024 End: 11-17-2024 Patient encounter procedure 11/17/2024 9:00 PM EDT Office Visit [facility] [address] [place] [phone] Snoring [R06.83]; Excessive daytime sleepiness [G47.19]; Non-restorative sleep [G47.8]; PLMD (periodic limb movement disorder) [G47.61]; Primary hypertension [I10] [facility] Comment on above: Snoring [R06.83]; Excessive daytime slee piness [G47.19]; Non-restorative sleep [G47.8]; PLMD (periodic limb movement disorder) [G47.61]; Primary hypertension [I10] Start: 11-17-2024 BP Controlled (<130/80) BP Controlled (<130/80) [facility] Start: 11-03-2024 End: 02-02-2025 25-hydroxyvitamin D3 [Mass/volume] in Serum or Plasma [facility] Comment on above: Expected: 11/03/2024, Expires: Start: 11-03-2024 End: 02-02-2025 Cobalamin (Vitamin B12) [Mass/volume] in Serum or Plasma [facility] Comment on above: Expected: 11/03/2024, Expires: Start: 11-03-2024 End: 02-02-2025 Ferritin [Mass/volume] in Serum or Plasma [facility] Comment on above: Expected: 11/03/2024, Expires: Start: 11-03-2024 End: 02-02-2025 Iron and Iron binding capacity panel - Serum or Plasma [facility] Work Phone: Comment on above: Expected: 11/03/2024, Expires: Start: 11-03-2024 End: 11-03-2024 Patient encounter procedure 11/03/2024 2:00 PM EST Office Visit Internal Medicine [place] [address] [place], [place] [address] Ifeoma Davis MD [address] [place] [address] 1 month follow up Internal Medicine [place] Comment on above: 1 month follow up Start: 11-03-2024 End: 02-02-2025 Thyrotropin [Units/volume] in Serum or Plasma [facility] Comment on above: Expected: 11/03/2024, Expires: Start: 11-03-2024 End: 02-02-2025 Thyroxine (T4) free [Mass/volume] in Serum or Plasma [facility] Comment on above: Expected: 11/03/2024, Expires: Start: 10-13-2024 End: 10-13-2024 Patient encounter procedure 10/13/2024 10:15 AM EST Office Visit [facility] [address] [place] [address] Cynthia Ramos MD [address] [place], [place] [phone] SP 6 months VaTa and mac OCT [facility] Comment on above: SP 6 months VaTa and mac OCT Start: 10-12-2024 End: 10-12-2024 Patient encounter procedure 10/12/2024 3:00 PM EST Office Visit Internal Medicine [place] [address] [place] [address] Ifeoma Davis MD [address] [place], [place] [phone] follow up increase memory loss. decline in adls/ gait [facility] [place] Comment on above: follow up increase memory loss. decline in adls/ gait Start: 10-10-2024 Screening for malignant neoplasm of breast Mammogram Screening [facility] Start: 10-07-2024 End: 10-07-2024 Patient encounter procedure 10/07/2024 2:00 PM EST Office Visit Neurology [address] [place] [address] Michelle Chin APRN.WEB CONTENT SPECIALIST [address] [place] [address] DAYSI (obstructive sleep apnea) [G47.33] Neurology Comment on above: DAYSI (obstructive sleep apnea) [G47.33] Start: 09-29-2024 End: 09-29-2024 Patient encounter procedure Internal Medicine [place] Comment on above: 6 mo follow up; routine 6 mo follow up; rout ine - HTN focus [place] Start: 09-27-2024 Annual PCP Team Chronic Disease Visit Annual PCP Team Chronic Disease Visit [facility] Start: 09-24-2024 End: 09-24-2024 Patient encounter procedure 09/24/2024 3:00 PM EST Office Visit Neurology [address] [place] [address] Michelle Chin APRN.WEB CONTENT SPECIALIST [address] [place] [address] F/U Neurology Comment on above: F/U Start: 09-02-2024 Medicare Advantage Annual Wellness Visit Medicare Advantage Annual Wellness Visit [facility] Start: 08-18-2024 End: 08-18-2024 Patient encounter procedure 08/18/2024 12:45 PM EST Office Visit [facility] [address] [place] [address] Cynthia Ramos MD [address] [place] [address] SP 6 months VaTa and mac OCT [facility] Comment on above: SP 6 months VaTa and mac OCT Start: 08-15-2024 DIABETES SCREEN DIABETES SCREEN [facility] Start: 08-13-2024 End: 08-13-2024 Patient encounter procedure 08/13/2024 1:00 PM EST Office Visit Neurology [address] [place] [address] Michelle Chin APRN.WEB CONTENT SPECIALIST [address] [place] [address] DAYSI (obstructive sleep apnea) [G47.33] Neurology Comment on above: DAYSI (obstructive sleep apnea) [G47.33] Start: 07-23-2024 End: 07-23-2024 Patient encounter procedure 07/23/2024 11:20 AM EST Office Visit Orthopaedics [address] [place] [address] Massimo Roberts MD [address] [place] [address] rt wrist discuss surgery Orthopaedics Comment on above: rt wrist discuss surgery Start: 06-29-2024 HPV [address] [facility] Start: 06-29-2024 PAP TEST[address] PAP TESTING [facility] Start: 06-29-2024 Screening for malignant neoplasm of cervix [facility] Start: 06-22-[address] [facility] Start: 06-22-2024 COLORECTAL CANCER SCREENING COLORECTAL CANCER SCREENING 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 Start: 05-21-2024 BP Controlled (<130/80) BP Controlled (<130/80) [facility] Start: 05-03-2024 Covid-19 Vaccine ( season) Covid-19 Vaccine () [facility] Start: 05-03-2024 Covid-19 Vaccine ( season) Covid-19 Vaccine ( season) [facility] Start: 05-03-[address] [facility] Start: 04-30-2024 BP CONTROLLED (<130/80) BP CONTROLLED (<130/80) [facility] Start: 03-31-2024 End: 06-30-2024 Hepatitis C virus Ab [Presence] in Serum [facility] Work Phone: Comment on above: Expected: 03/31/2024, Expires: Start: 03-31-2024 End: 06-30-2024 HIV 1+2 Ab [Presence] in Serum or Plasma by Immunoassay [facility] Comment on above: Expected: 03/31/2024, Expires: Start: 03-31-2024 End: 03-31-2024 Patient encounter procedure Internal Medicine [place] Comment on above: physical physical - AWV due Start: 03-17-2024 End: 06-16-2024 Basic metabolic 2000 panel - Serum or Plasma BASIC METABOLIC PANEL Lab Routine Hypertension Expected: 03/17/2024, Expires: 06/16/2024 [facility] Work Phone: Comment on above: Expected: 03/17/2024, Expires: Start: 03-17-2024 End: 06-16-2024 CBC panel - Blood by Automated count COMPLETE BLOOD COUNT Lab Routine Medication management Expected: 03/17/2024, Expires: 06/16/2024 [facility] Comment on above: Expected: 03/17/2024, Expires: Start: 03-17-2024 End: 06-16-2024 Lipid 1996 panel - Serum or Plasma LIPID PANEL BASIC Lab Routine Mixed hyperlipidemia Expected: 03/17/2024, Expires: 06/16/2024 [facility] Comment on above: Expected: 03/17/2024, Expires: Start: 02-18-2024 End: 02-18-2024 Patient encounter procedure 02/18/2024 12:30 PM EDT Office Visit OPHT [facility] [address] [place], [place] [id number] Cynthia Ramos MD [address] [place], [place] [id number] 6m follow up [facility] Comment on above: 6m follow up Start: 12-11-2023 BP CONTROLLED (<130/80) BP CONTROLLED (<130/80) [facility] Start: 10-16-2023 ANNUAL PCP TEAM CHRONIC DISEASE VISIT ANNUAL PCP TEAM CHRONIC DISEASE VISIT [facility] Start: 10-16-2023 BP CONTROLLED (<130/80) BP CONTROLLED (<130/80) [facility] Start: 09-27-[address] [facility] Start: 09-27-2023 Screening for malignant neoplasm of breast Mammogram Screening [facility] Start: 09-02-2023 Behavioral Health Screening Behavioral Health Screening [facility] Start: 09-02-2023 Depression Assessment Depression Assessment [facility] Start: 06-25-2023 BP CONTROLLED (<130/80) BP CONTROLLED (<130/80) [facility] Start: 06-20-2023 BP CONTROLLED (<130/80) BP CONTROLLED (<130/80) [facility] Start: 06-04-2023 ANNUAL PCP TEAM CHRONIC DISEASE VISIT ANNUAL PCP TEAM CHRONIC DISEASE VISIT [facility] Start: 05-03-2023 Covid-19 Vaccine ( season) Covid-19 Vaccine ( season) [facility] Start: 05-03-[address] [facility] Start: 02-09-2023 BP CONTROLLED (<130/80) BP CONTROLLED (<130/80) [facility] Start: 12-25-2022 ANNUAL PCP TEAM CHRONIC DISEASE VISIT ANNUAL PCP TEAM CHRONIC DISEASE VISIT [facility] Start: 12-04-2022 BP CONTROLLED (<130/80) BP CONTROLLED (<130/80) [facility] Start: 10-23-2022 ANNUAL PCP TEAM CHRONIC DISEASE VISIT ANNUAL PCP TEAM CHRONIC DISEASE VISIT [facility] Start: 10-16-2022 End: 12-16-2022 Follitropin [Units/volume] in Serum or Plasma FSH BLD Lab Routine Hot flashes Expected: 10/16/2022, Expires: 12/16/2022 [facility] Work Phone: Comment on above: Expected: 10/16/2022, Expires: 3 Start: 09-27-2022 End: 11-27-2022 CBC W Auto Differential panel - Blood CBC + DIFF Lab Routine Annual physical exam Expected: 09/27/2022, Expires: 11/27/2022 [facility] Work Phone: Comment on above: Expected: 09/27/2022, Expires: 3 Start: 09-27-2022 End: 11-27-2022 Comprehensive metabolic 2000 panel - Serum or Plasma COMP METABOLIC PANEL Lab Routine Annual physical exam Expected: 09/27/2022, Expires: 11/27/2022 [facility] Work Phone: Comment on above: Expected: 09/27/2022, Expires: 3 Start: 09-27-2022 End: 11-27-2022 Lipid 1996 panel - Serum or Plasma LIPID PANEL BASIC Lab Routine Annual physical exam Expected: 09/27/2022, Expires: 11/27/2022 [facility] Work Phone: Comment on above: Expected: 09/27/2022, Expires: 3 Start: 09-27-2022 End: 11-27-2022 Thyrotropin [Units/volume] in Serum or Plasma TSH BLD Lab Routine Annual physical exam Expected: 09/27/2022, Expires: 11/27/2022 [facility] Work Phone: Comment on above: Expected: 09/27/2022, Expires: 3 Start: 09-02-2022 DEPRESSION ASSESSMENT DEPRESSION ASSESSMENT [facility] Start: 08-21-[address] [facility] Start: 06-27-2022 End: 06-20-2023 Echocardiography ECHO Cardiology Routine PXE (pseudoxanthoma elasticum) Expected: 06/27/2022, Expires: 06/20/2023 [facility] Work Phone: Comment on above: Expected: 06/27/2022, Expires: 3 Start: 05-03-[address] [facility] Start: 03-20-2022 End: 05-20-2022 CBC panel - Blood by Automated count CBC Lab Routine Medication management Expected: 03/20/2022, Expires: 05/20/2022 [facility] Work Phone: Comment on above: Expected: 03/20/2022, Expires: 2 Start: 03-20-2022 End: 05-20-2022 Hemoglobin A1c in Blood HGB A1C Lab Routine Medication management Expected: 03/20/2022, Expires: 05/20/2022 [facility] Work Phone: Comment on above: Expected: 03/20/2022, Expires: 2 Start: 03-20-2022 End: 05-20-2022 SCHEDULE LAB TESTING SCHEDULE LAB TESTING Lab Routine Expected: 03/20/2022, Expires: 05/20/2022 [facility] Work Phone: Comment on above: Expected: 03/20/2022, Expires: 2 Start: 02-27-2022 End: 04-29-2022 Herpes simplex virus+Varicella zoster virus DNA [Presence] in Unspecified specimen by SUKUMAR with probe detection HSV 1,2/VZV AMP MOLECULAR DETECT Lab Routine Marginal corneal ulcer of left eye Expected: 02/27/2022, Expires: 04/29/2022 [facility] Work Phone: Comment on above: Expected: 02/27/2022, Expires: 2 Start: 02-27-2022 End: 04-29-2022 Nuclear Ab [Presence] in Serum by Immunoassay OLGA PANEL BLOOD SCRN Lab Routine Marginal corneal ulcer of left eye Expected: 02/27/2022, Expires: 04/29/2022 [facility] Work Phone: Comment on above: Expected: 02/27/2022, Expires: 2 Start: 09-02-2021 DEPRESSION ASSESSMENT DEPRESSION ASSESSMENT [facility] Start: 07-28-2019 Adult depression screening assessment DEPRESSION SCREENING [facility] Start: 2019 Pneumococcal Vaccine: 50+ (1 of 1 - PCV) Pneumococcal Vaccine: 50+ (1 of 1 - PCV) [facility] Start: 2019 SHINGRIX VACCINE (1 of 2) SHINGRIX VACCINE (1 of 2) [facility] Start: 2014 COLOGUARD (FIT-DNA) COLOGUARD (FIT-DNA) [facility] Start: [address]APHY [facility] Start: 2014 FECAL OCCULT BLOOD FECAL OCCULT BLOOD [facility] Start: 2014 Screening for malignant neoplasm of colon [facility] Start: [address] [facility] Start: 1988 Hepatitis B Vaccine (1 of 3 - 19+ 3-dose series) Hepatitis B Vaccine (1 of 3 - 19+ 3-dose series) [facility] Start: 1988 SHINGRIX VACCINE (1 of 2) SHINGRIX VACCINE (1 of 2) [facility] Start: [address] [facility] Start: 1987 Anxiety Screening Anxiety Screening [facility] Start: 1987 BP CONTROLLED (<130/80) BP CONTROLLED (<130/80) [facility] Start: 1987 Depression Screening Depression Screening [facility] Start: 1987 HEPATITIS C SCREENING HEPATITIS C SCREENING [facility] Start: 1987 Hepatitis C screening Hepatitis C Screening [facility] Start: 1987 HIV SCREENING HIV SCREENING [facility] Start: 1987 HIV screening HIV Screening [facility] Start: 1981 COVID-19 VACCINE (1) COVID-19 VACCINE (1) [facility] Start: 1975 PNEUMOCOCCAL (1 - PCV) PNEUMOCOCCAL (1 - PCV) [facility] Start: 1974 COVID-19 VACCINE (#1) COVID-19 VACCINE (#1) [facility] Start: 1969 COVID-19 VACCINE (#1) COVID-19 VACCINE (#1) [facility] Start: 1969 HEPATITIS B (1 of 3 - 3-dose series) HEPATITIS B (1 of 3 - 3-dose series) [facility] Start: 1969 Hepatitis B Vaccine (1 of 3 - 3-dose series) Hepatitis B Vaccine (1 of 3 - 3-dose series) [facility] Bacteria identified in Urine by Culture BACTERIAL CULTURE, URINE Microbiology Routine Dysuria Ordered: 10/31/2024 [facility] Work Phone: Comment on above: Ordered: 10/31/2024 End: 04-30-2024 COLONOSCOPY DIAGNOSTIC COLONOSCOPY DIAGNOSTIC Endoscopy Routine Change in bowel habits 1 Occurrences starting 04/30/2023 until 04/30/2024 [facility] Work Phone: Comment on above: 1 Occurrences starting 04/30/2023 until 04/30/2024 CORNEAL TOPOGRAPHY A TLAS OU (BOTH EYES) CORNEAL TOPOGRAPHY ATLAS OU (BOTH EYES) [facility] Imaging Routine Nuclear sclerotic cataract of left eye 10/29/2022 1:[address] [facility] Work Phone: CORNEAL TOPOGRAPHY PENTACAM OU (BOTH EYES) CORNEAL TOPOGRAPHY PENTACAM OU (BOTH EYES) [facility] Imaging Routine Nuclear sclerotic cataract of left eye 10/29/2022 1:[address] [facility] Work Phone: COVID & INFLUENZA A/ B & RSV PCR, ROUTINE COVID & INFLUENZA A/B & RSV PCR, ROUTINE Microbiology Routine Close exposure to COVID-19 virus Ordered: 07/08/2024 [facility] Work Phone: Comment on above: Ordered: 07/08/2024 End: 07-12-2025 DBT Breast - bilateral screening GENOVEVA SCREENING W LILLY Radiology Routine Encounter for screening mammogram for malignant neoplasm of breast 1 Occurrences starting 06/12/2024 until 07/12/2025 [facility] Work Phone: Comment on above: 1 Occurrences starting 06/12/2024 until 07/12/2025 End: 10-28-2023 Diagnostic mammography computer-aided detcj uni [facility] DIAGNOSTIC RT Radiology Routine Abnormal mammogram 1 Occurrences starting 09/28/2022 until 10/28/2023 [facility] Work Phone: Comment on above: 1 Occurrences starting 09/28/2022 until 10/28/2023 ECG B/O W INTERP (ME D OFFICE) ECG B/O W INTERP (MED OFFICE) ECG Routine PXE (pseudoxanthoma elasticum) Ordered: 06/20/2022 [facility] Work Phone: Comment on above: Ordered: 06/20/2022 End: 10-16-2023 ECG COMPLETE ECG COMPLETE ECG Routine Gastroesophageal reflux disease with esophagitis, unspecified whether hemorrhage 1 Occurrences starting 10/16/2022 until 10/16/2023 [facility] Work Phone: Comment on above: 1 Occurrences starting 10/16/2022 until 10/16/2023 ECG COMPLETE ECG COMPLETE ECG 10/16/2022 2:[address] [facility] End: 04-30-2024 EGD DIAGNOSTIC EGD DIAGNOSTIC Endoscopy Routine Gastroesophageal reflux disease, unspecified whether esophagitis present 1 Occurrences starting 04/30/2023 until 04/30/2024 [facility] Work Phone: Comment on above: 1 Occurrences starting 04/30/2023 until 04/30/2024 EMG(NEURO/NI) EMG(NEURO/NI) EM G Routine Pain in both hands Ordered: 05/03/2022 [facility] Work Phone: Comment on above: Ordered: 05/03/2022 End: 04-25-2024 EMG(NEURO/NI) EMG(NEURO/NI) EMG Routine Numbness and tingling in right hand 1 Occurrences starting 04/25/2023 until 04/25/2024 [facility] Work Phone: Comment on above: 1 Occurrences starting 04/25/2023 until 04/25/2024 MG Breast Screening GENOVEVA SCREENIN G Radiology Routine Encounter for screening mammogram for breast cancer 10/10/2023 1:[address] [facility] Work Phone: End: 01-22-2025 MG Breast Screening [facility]EVA SCREENING Radiology Routine Encounter for gynecological examination (general) (routine) without abnormal findings Encounter for screening mammogram for breast cancer 1 Occurrences starting 12/24/2023 until 01/22/2025 [facility] Work Phone: Comment on above: 1 Occurrences starting 12/24/2023 until 01/22/2025 MG Breast Screening GENOVEVA SCREENIN G Radiology Routine Encounter for gynecological examination (general) (routine) without abnormal findings Encounter for screening mammogram for breast cancer 10/21/2024 2:[address] [facility] Work Phone: MR Lumbar spine [facility] End: 01-24-2023 Mri brain brain stem w/o w/contrast material MRI BRAIN WO/W IVCON Radiology Routine 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) Vertigo Memory deficits New daily persistent headache 1 Occurrences starting 12/25/2021 until 01/24/2023 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 Work Phone: Comment on above: Ordered: 04/03/2022 OT PLAN OF CARE CERTIFICATION OT PLAN OF CARE CERTIFICATION Procedures Routine Difficulty with household tasks Impaired mobility and personal care Personal care impairment Complaints of difficulty with reading Blindness right eye category 3, blindness left eye category 4 Ordered: 09/19/2022 [facility] Comment on above: Ordered: 09/19/2022 PAP TEST PAP TEST Lab Rou ronnell Encounter for gynecological examination (general) (routine) without abnormal findings Encounter for screening for human papillomavirus (HPV) Pap smear for cervical cancer screening 12/24/2023 1:[address] [facility] Patient Education [facility] Work Phone: End: 07-09-2025 Polysomnogram POLYSOMNOGRAM (PSG) Procedures Routine DAYSI (obstructive sleep apnea) 1 Occurrences starting 07/09/2024 until 07/09/2025 [facility] Work Phone: Comment on above: 1 Occurrences starting 07/09/2024 until 07/09/2025 End: 10-08-2025 Polysomnogram POLYSOMNOGRAM (PSG) Procedures Routine Snoring Excessive daytime sleepiness Non-restorative sleep PLMD (periodic limb movement disorder) Primary hypertension 1 Occurrences starting 10/08/2024 until 10/08/2025 [facility] Work Phone: Comment on above: 1 Occurrences starting 10/08/2024 until 10/08/2025 End: 07-28-2023 Radiologic exam chest 2 views XR CHEST 2V FRONTAL/LAT Radiology Routine Acute cough 1 Occurrences starting 06/28/2022 until 07/28/2023 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 Work Phone: Comment on above: 1 Occurrences starting 12/04/2021 until 01/03/2023 Tdap vaccine 7 yrs/> im TDAP VAC CINE, AGE 7+ YR (ADACEL, BOOSTRIX) Immunization/Injection Routine Need for vaccination Ordered: 03/01/2025 [facility] Work Phone: Comment on above: Ordered: 03/01/2025 End: 10-28-2023 Us breast uni real time with image limited US BREAST LTD RT Radiology Routine Abnormal mammogram 1 Occurrences starting 09/28/2022 until 10/28/2023 [facility] Work Phone: Comment on above: 1 Occurrences starting 09/28/2022 until 10/28/2023 End: 10-31-2023 XR HAND GENERAL 3V PA/LAT/OBL BILATERAL XR HAND GENERAL 3V PA/LAT/OBL BILATERAL Radiology Routine Pain in both hands 1 Occurrences starting 10/01/2022 until 10/31/2023 [facility] Work Phone: Comment on above: 1 Occurrences starting 10/01/2022 until 10/31/2023 XR HAND GENERAL 3V PA/LAT/OBL BILATERAL XR HAND GENERAL 3V PA/LAT/OBL BILATERAL Radiology Routine Pain in both hands 10/01/2022 2:[address] [facility] Work Phone: XR Spine Lumbar and Sacrum Views [facility] Immunizations Immunization Date Immunization Notes Care Provider Adwoa matthews 03-02-2025 tetanus toxoid, redu leona diphtheria toxoid, and acellular pertussis vaccine, adsorbed Mi Nurse Work Phone: [facility] 02-25-2025 diphtheria, tetanus toxoids and acellular pertussis vaccine, unspecified formulation Ifeoma Davis MD Work Phone: [facility] Payers Date Payer Category Payer Self-pay [id number] 2021 Medicaid [id number] 2021 Medicaid [id number] 2020 Medicaid [id number] 2019 Medicare (Managed Care) [place] [id number] 2017 Unknown [place] [employer] [facility] [id number] 2017-Present [phone] [address] [place] [address] [facility] [place] [id number] 2017 Unknown [id number]. [id number] 2017 Unknown [id number] 2014 Unknown [id number] Unknown [id number] 2.16.840.1.967899.3.579.2. 462 Unknown [id number] 2.16.840.1.867065.3.579.2. 462 Unknown [id number] 2.16.840.1.956819.3.579.2. 462 Unknown [id number] 2.16.840.1.329965.3.579.2. 462 Unknown [id number] 2.16.840.1.655335.3.579.2. 462 Unknown [id number] 2.16.840.1.701762.3.579.2. 462 Unknown [id number] 2.16.840.1.178121.3.579.2. 462 Unknown [id number] 2..840.1.741779.3.579.2. 462 Unknown [id number] 2.16.840.1.633293.3.579.2. 462 Unknown [id number] 2..840.1.667150.3.579.2. 462 Unknown [id number] 2.16.840.1.179205.3.579.2. 462 Unknown [id number] 2.16.840.1.188886.3.579.2. 462 Unknown [id number] 2.16.840.1.136223.3.579.2. 462 Unknown [id number] 2.16.840.1.324512.3.579.2. 462 Unknown [id number] 2.16.840.1.572007.3.579.2. 462 Unknown [id number] 2.16.840.1.856210.3.579.2. 462 Unknown [id number] 2.16.840.1.652419.3.579.2. 462 Unknown [id number] 2.16.840.1.104714.3.579.2. 462 Unknown [id number] 2.16.840.1.073775.3.579.2. 462 Unknown [id number] 2.16.840.1.543336.3.579.2. 462 Social History Date Type Detail Facility Start: 12-09-2014 End: 07-10-2025 Tobacco smoking status NHIS Never smoked tobacco [facility] Work Phone: Start: 11-28-2021 End: 04-22-2025 Alcohol intake Current non-drinker of alcohol (finding) [facility] Start: 11-21-2020 History SDOH Social Connections Phone 5 [facility] Start: 11-21-2020 History SDOH Social Connections [facility] 3 [facility] Start: 11-21-2020 History SDOH Social Connections Membership 1 [facility] Start: 11-21-2020 History SDOH Physica l Activity DPW 7 [facility] Start: 11-21-2020 History SDOH Physica l Activity MPS 2 [facility] Start: 1970 Sex Assigned At Not on file C [facility] Start: 12-15-2021 End: 06-25-2022 Exposure to SARS-CoV-2 (event) Not sure [facility] Work Phone: Start: 12-09-2014 End: 03-24-2025 Tobacco use and exposure Smokeless tobacco non-user [facility] Start: 1970 Sex Assigned At Female C [facility] Start: 11-20-2021 End: 11-06-2023 Tobacco smoking status NHIS Unknown if ever smoked [facility] Start: 11-21-2020 End: 12-24-2023 History of Social function [facility] Work Phone: Start: 11-21-2020 End: 12-24-2023 Social connection and isolation panel [facility] Work Phone: Do you belong to any clubs or organizations such as pentecostal groups, unions, fraternal or athletic groups, or school groups? Yes [facility] Work Phone: Are you now , , , , never or living with a partner? [facility] Work Phone: Start: 08-03-2012 Adult Depression Screening Assessment 0 [facility] Work Phone: Do you feel stress - tense, restless, nervous, or anxious, or unable to sleep at night because your mind is troubled all the time - these days [OSQ] Only a little [facility] Work Phone: Start: 09-18-2022 Gender identity Identifies as female gender (finding) [facility] Start: 09-18-2022 Sexual orientation Heterosexual (fin ding) [facility] Start: 11-30-2024 Sex Female (finding) [facility] NEGATED: Highlighted rowStart: MICHAEL History of tobacco use Passive smoker [facility] Medical Equipment Procedure Code Equipment Code Equipment Origin al Text Equipment Identifier Dates Lens Acrysof Ultrasert +14.5 Diopter Acrylic Iol 1 Piece Foldable Uv Blue - [id number] Start: 06-25-2022 Lens Acrysof Ultrasert +15.5 Diopter Acrylic Iol 1 Piece Foldable Uv Blue - [id number] Start: 11-15-2022 Functional Status Date Assessment Result Facility 12-14-2014 Are you deaf, or do you have serious difficulty hearing No 12/14/2014 10:27 AM Celeste Bass LPN No [facility] 12-14-2014 Are you blind, or do you have serious difficulty seeing, even when wearing glasses Yes 12/14/2014 10:27 AM Celeste Bass LPN Yes [facility] 12-14-2014 Do you have serious difficulty walking or climbing stairs No 12/14/2014 10:27 AM Celeste Bass LPN No [facility] 12-14-2014 Do you have difficul ty dressing or bathing No 12/14/2014 10:27 AM Celeste Bass LPN No [facility] 12-14-2014 Because of a physica l, mental, or emotional condition, do you have difficulty doing errands alone such as visiting a physician's office or shopping No 12/14/2014 10:27 AM Celeste Bass LPN No [facility] Mental Status Date Assessment Result Facility 07-10-2025 Cognitive function Level Of Cons ciousness Awake [facility] Work Phone: 06-29-2025 Cognitive function Level Of Cons ciousness Awake [facility] Work Phone: 06-23-2025 Cognitive function Level Of Cons ciousness Awake [facility] Work Phone: 06-17-2025 Cognitive function Level Of Cons ciousness Awake [facility] Work Phone: 12-14-2014 Because of a physica l, mental, or emotional condition, do you have serious difficulty concentrating, remembering, or making decisions No 12/14/2014 10:27 AM EDT Celeste Gomez LPN No [facility] Clinical Notes 11-28-2021 to 07-13-2025 Note Date & Type Note Facility 07-13-2025 Note [facility] 07-13-2025 Note [facility] 07-06-2025 Note [facility] 07-06-2025 Note [facility] 07-05-2025 Note HNO ID: [id number] Author: CATIE LINDSEY RT(R) Service: ? Author Type: Technologist Type: Progress Notes Filed: 07/05/2025 15:55 Note Text: xray: chest [facility] 07-02-2025 Note [facility] 07-01-2025 Note [facility] 07-01-2025 Note [facility] 06-30-2025 Note [facility] 06-30-2025 Note [facility] 06-30-2025 Note [facility] 06-23-2025 Discharge summary [facility] 06-23-2025 Radiology Diagnostic study note [facility] [address] [place], [place] [address] Brain/Head without Contrast MR#: [id number] Acct: [id number] Name: ALLIE LYNN Rep #: [id number] : 1970 F 55 From: Eric June MD PCP: Dr. Ifeoma Davis MD Status: REG E R Study:Brain/Head without Contrast Date of Exa m: 06/23/25 Exam# [id number] Ordering Dr: Geovanni Rosen DO PROCEDURE: CT BRAIN/HEAD WITHOUT CONTRAST; CTA [...] intracranial arterial vasculature. No acute large vessel occlusion,high-grade stenosis, saccular aneurysm, or vascular malformation identified. [...] and irregular moderate luminal narrowing along the distalright ICA cavernous/supraclinoid segments, unchanged. NONCONTRAST CT HEAD: No acute intracranial hemorrhage, extra-axial collection, mass effect or evidence of acute infarct. Ventricles and subarachnoid spaces are normal in size. Absent circle ocular lenses. Intact skull base and calvarium. [...] or high-grade stenosis. No aneurysm. Reading Location: [facility] CC: Dr. Geovanni Sorto DO; Dr. Ifeoma Davis MD ~ Gifted Program Teacher: Signed [facility] 06-23-2025 Radiology Diagnostic study note [facility] [address] [place] [address] CTA Head AND Neck W/ Contrast MR#: [id number] Acct: [id number] Name: ALLIE LYNN Rep #: [id number] : 1970 F 55 From: [facility] franki June MD PCP: Dr. Ifeoma Davis MD Status: REG E R Study:CTA Head AND Neck W/ Contrast Date of E xam: 06/23/25 Exam# [id number] Ordering Dr: Geovanni Rosen DO PROCEDURE: CT BRAIN/HEAD WITHOUT CONTRAST; CTA [...] intracranial arterial vasculature. No acute large vessel occlusion,high-grade stenosis, saccular aneurysm, or vascular malformation identified. [...] and irregular moderate luminal narrowing along the distalright ICA cavernous/supraclinoid segments, unchanged. NONCONTRAST CT HEAD: No acute intracranial hemorrhage, extra-axial collection, mass effect or evidence of acute infarct. Ventricles and subarachnoid spaces are normal in size. Absent circle ocular lenses. Intact skull base and calvarium. [...] or high-grade stenosis. No aneurysm. Reading Location: [id number] CC: Dr. Geovanni Sorto DO; Dr. Ifeoma Davis MD ~ Gifted Program Teacher: Signed [facility] 06-23-2025 Discharge summary Note Date/Time June 23, 2025 10:15pm [place] [facility] Medical Records Department [address] [place] [address] Emergency Department Summary 06/23/25 MR#: [id number] Acct: [id number] Name: ALLIE LYNN Rep #:[id number] : 1970 55 From: Geovanni cody DO PCP: Dr. Ifeoma Davis MD Status:DEP [...] any trauma or injury. Mild light sensitivity andnausea. Denies any weakness or numbness or tingling. Denies any fever, chills. She describes her headache as pressure. Review of systems: See HPI Medications: As listed on the chart Allergies: As listed on the chart PFSH: Per chart Vital signs: As listed on the chart. Reviewed. Physical exam: Gen: A&O x3, NAD but sitting in a dark [...] intact Psych: Cooperative, appropriate mood and affect [facility] History (Updated 06/23/25 @ 20:[address] Geovanni Mera-Taz, DO) Wears glasses Depression Anxiety High cholesterol [...] mg-325 0.5 - 1 tab PO TID LA N pain 03/10/25 Unknown History mg tablet cyclobenzaprine 10 mg tablet 10 mg PO HS MUSCLE SPASM 06/04/25 Unknown History Lactobacillus 25 billion 1 cap PO DAILY SUPPLMENT 06/26 Unknown History cell-Bifido 25 billion ulgq-SQM-abhlk capsule cevimeline 30 mg capsule 1 cap [...] Time hydrocodone bitartrate (From AdvReac Itching Verified 06/23/25 17:26 Vicodin) nitrofurantoin (From AdvReac Other Verified 06/23/25 17:26 Macrobid) nitrofurantoin AdvReac Other Verified 06/23/25 17:26 macrocrystalline (From Macrobid) propoxyphene (From AdvReac Other Verified 06/23/25 17:26 Darvocet-N) tramadol HCl (From Ultram) AdvReac Other Verified 06/23/25 17:26 Family History Father Lung cancer Mother COPD [...] only substance use type: does not use EXAM Physical Exam Const Vital Signs: 06/23/25 17:25 06/23/25 19:25 06/23/25 21:14 Temperature 98.3 F 97.8 F Temperature Source Oral Pulse Rate 76 61 78 Respiratory Rate 16 16 16 Blood Pressure 133/68 H 138/69 H 126/62 H Blood Pressure Mean 89 92 83 Pulse Ox 98 98 98 Oxygen Delivery Method Room Air MDM MDM MDM Narrative Medical decision making narrative: 55-year-old female with 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 Patient states that she has had a headache since 06/17/2025. States she was seen in our emergency department for the headache. States she was diagnosed with a blockage in her neck and discharged home from our emergency department. She states the headachehas continued in which she saw her PCP. States she saw the eye doctor yesterdaywho checked her ocular pressures that were unremarkable. She denies any trauma or injury. Mild light sensitivity and nausea. On chart review, patient was seen by Dr. Sandra on 06/17/2025. She had a CT head that was obtained as well asa CTA head and neck. There is no acute intracranial abnormality. She had near complete occlusion of the left vertebral artery from its origin with with the appearance of long segment dissection versus intramural hematoma. Diminutive reconstruction at the distal V4 segment. Widely patent contralateral dominant right vertebral artery and basilar artery. Vascular surgery, Dr. Hinojosa was consulted. [place] that this was a chronic occlusion. Recommended aspirin and Plavix. She was already on statin. She is supposed to follow-up in the office. She also had labs performed that day that were unremarkable. Differential diagnosis includes but is not limited to migraine headache, tension headache, electrolyte abnormality, dehydration. Suspect less likely a change in her stenosis or an intracranial abnormality however given patient's symptoms have not improved we will repeat imaging of the head with laboratory workup. NS bolus, Reglan, Benadryl, morphine, Imitrex ordered for symptoms. CBC with anemia of 10.4. Otherwise unremarkable. BMP unremarkable. CT of the brain shows no acute intracranial abnormality. CTA head and neck shows the same pathology as prior. No aneurysms. On reevaluation, patient states her headacheis improved. States it is minimal. 2 out of 10. States is the best it is felt. Patient stable to discharge home. Follow-up with primary care physician. She confirmed understand the plan. Patient will discharge home. Impression: 1. Headache 2. 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 Lab Data Labs: Laboratory Results - last 24 hr 06/23/25 19:20 WBC 7.0 RBC 3.50 L Hgb 10.4 L Hct 31.8 L MCV 90.9 MCH 29.7 MCHC 32.7 RDW Std Deviation 43.8 RDW Coeff of Roderick 13.2 Plt Count 274 MPV 10.3 Immature Gran % (Auto) 0.300 Neut % (Auto) 67.2 Lymph % (Auto) 17.9 L [place] % (Auto) 11.9 H Eos % (Auto) 2.4 Baso % (Auto) 0.3 Absolute Neuts (auto) 4.7 Absolute Lymphs (auto) 1.25 Nucleated RBC % 0 Sodium 135 Potassium 3.5 Chloride 99 Carbon Dioxide 28.0 Anion Gap 8 BUN 15 Creatinine 1.04 Estim Creat Clear Calc 53.99 Est GFR (MDRD) Non-Af 63 BUN/Creatinine Ratio 14.5 Glucose 92 Calcium 8.8 Radiography Diagnostic Testing: Clinical Impression(s) from Imaging Studies Brain CT 06/23/25 19:05 IMPRESSION: No acute intracranial abnormality is evident. [...] or high-grade stenosis. No aneurysm. Reading Location: [facility] Head/Neck CTA 06/23/25 19:05 IMPRESSION: No acute intracranial abnormality is evident. [...] or high-grade stenosis. No aneurysm. Reading Location: [facility] Discharge Plan Triage Chief Complaint: Headache ED Provider: Geovanni Sorto Dx/Rx/DC Orders Clinical Impression: Headache Instructions: ED Headache Unspecified Prescriptions: No Action cyclobenzaprine 10 mg tablet [...] % drops 1 drp LEFT EYE BID clopidogrel [Plavix] 75 mg tablet 75 mg PO DAILY Qty: 30 0RF progesterone micronized 100 mg capsule 100 mg PO QHS cholecalciferol (vitamin D3) [Vitamin D3] 50 mcg (2,000 unit) capsule 50 mcg PO DAILY cevimeline 30 mg capsule 1 cap PO DAILY Lacto no.36-Jjqajm-IDM-larch 25B cell-25B cell-50 mg capsule 1 cap PO DAILY Primary Care Provider: Ifeoma Davis Referrals: Ifeoma Davis MD [Primary Care Provider, Internal Medicine] - 3-5 Days Activity Restrictions/Additional Instructions: Follow-up with your primary care physician. Return back to ED if symptoms change or worsen. Print Language: Grenadian Disposition Disposition: Home, Self Care Discharge Date/Time: 06/23/25 21:15 What to do if you have Problems For any increased pain, shortness of breath, bleeding, nausea or vomiting, chestpain, or any unexpected problems, contact your Primary Care Provider. Call [facility] ([phone]) or report to the closest Emergency Room. Call 911 if necessary. 06/24/25 0025 <Electronically signed by Geovanni Sorto DO> Cosigner Signature (if applicable): CC: Dr. Ifeoma Davis MD ~ Signed [facility] Work Phone: 1(375) 193-116210-16-2025 Discharge summary [facility] Medical Records Department [address] [place] [address] Emergency Department Summary 06/17/25 MR#: [id number] Acct: [id number] Name: ALLIE LYNN Rep #:[id number] : 1970 55 From: Patti Piña DO [...] too high risk to have the surgery. [facility] Medical History (Updated 06/17/25 @ 19:32 by [...] mg-325 0.5 - 1 tab PO TID LA N pain 03/10/25 Unknown History mg tablet cyclobenzaprine 10 mg tablet 10 mg PO HS MUSCLE SPASM 06/04/25 Unknown History Lactobacillus 25 billion 1 cap PO DAILY SUPPLMENT 06/26 Unknown History cell-Bifido 25 billion hqnm-RDB-qaevt capsule cevimeline 30 mg capsule 1 cap [...] without contrast that showed no acute intracranial hemorrhageor mass effect. CTA of the head and [...] patient required any type of emergent intervention andlikely this represented a chronic occlusion of the [...] she believes with a vascular surgeon in [facility] next Saturday which is in 5 days. I did give her 4 mg of morphine IV. Clinical suspicion low for an acute process with the vertebral artery and I do not feel this is what is causing her symptoms.Pain being intermittent and distribution involving the right [...] provider Patti Piña 06/17/2025 at 6 p.m. MATHEMATICAL STATISTICIAN. Reading Location: [facility] Head/Neck CTA 06/17/25 18:12 IMPRESSION: 1. [...] provider Patti Piña 06/17/2025 at 6 p.m. MATHEMATICAL STATISTICIAN. Reading Location: [facility] Discharge Plan Triage Chief Complaint: Headache [...] mg capsule 1 cap PO DAILY Lacto no.25-Khbalk-KQG-larch 25B cell-25B cell-50 mg capsule 1 cap PO DAILY Primary Care Provider: Ifeoma Davis Referrals: Ifeoma Davis MD [Primary Care Provider, Internal Medicine] Quincy Hinojosa MD [Med Staff - Active Staff, Vascular Surgery] - 5-7 Days Print Language: Grenadian Disposition Disposition: Home, Self Care What to do if you have Problems For any increased pain, shortness of breath, bleeding, nausea or vomiting, chestpain, or any unexpected problems, contact your Primary Care Provider. Call [facility] ([phone]) or report tothe closest Emergency Room. Call 911 if necessary. 06/17/251 Cosigner Signature (if applicable): CC: Dr. Ifeoma Davis MD ~ Signed [facility]10-16-2025 Radiology Diagnostic study note [facility] Imaging Services [address] [place] [address] Brain/Head without Contrast MR#: [id number] Acct: [id number] Name: ALLIE LYNN Rep #: [id number] : 1970 F 55 From: Eric June MD PCP: Dr. Ifeoma Davis MD Status: REG E R Study:Brain/Head without Contrast Date of Exa m: 06/17/25 Exam# [id number] Ordering Dr: Stacey Piña DO PROCEDURE: CT BRAIN/HEAD WITHOUT CONTRAST; CTA HEAD AND NECK WITH CONTRAST 06/17/2025 REASON FOR EXAM: HEADACHE, RIGHT FACE PAIN TECHNIQUE: Procedure Code: CTBR; CTCTA.HDNCK Modality: CT Procedure: BRAIN/HEAD WITHOUT CONTRAST; CTA HEAD ANDNECK W/ CONTRAST Coronal and Sagittal reconstruction series [...] intracranial arterial vasculature. No large vessel occlusion, flow- limiting stenosis, saccular aneurysm, or vascular malformation identified. Relatively hypoplastic caliber of the right JAM A1 segment compared to theleft. Dural venous sinuses appear patent. CTA NECK: [...] subarachnoid spaces are normal in size. Absent circle ocular lenses. Intact skull base and calvarium. [...] provider Patti Piña 06/17/2025 at 6 p.m. MATHEMATICAL STATISTICIAN. Reading Location: [id number] CC: Dr. Ifeoma Davis MD; Dr. Patti Piña DO ~ Gifted Program Teacher: Signed [facility]10-16-2025 Radiology Diagnostic study note [facility] Imaging Services [address] [place], [place] [address] CTA Head AND Neck W/ Contrast MR#: [id number] Acct: [id number] Name: ALLIE LYNN Rep #: [id number] : 1970 F 55 From: Eric June MD PCP: Dr. Ifeoma Davis MD Status: REG E R Study:CTA Head AND Neck W/ Contrast Date of E xam: 06/17/25 Exam# [id number] Ordering Dr: Stacey Piña DO PROCEDURE: CT BRAIN/HEAD WITHOUT CONTRAST; CTA HEAD AND NECK WITH CONTRAST 06/17/2025 REASON FOR EXAM: HEADACHE, RIGHT FACE PAIN TECHNIQUE: Procedure Code: CTBR; CTCTA.HDNCK Modality: CT Procedure: BRAIN/HEAD WITHOUT CONTRAST; CTA HEAD ANDNECK W/ CONTRAST Coronal and Sagittal reconstruction series [...] intracranial arterial vasculature. No large vessel occlusion, flow- limiting stenosis, saccular aneurysm, or vascular malformation identified. Relatively hypoplastic caliber of the right JAM A1 segment compared to theleft. Dural venous sinuses appear patent. CTA NECK: [...] subarachnoid spaces are normal in size. Absent circle ocular lenses. Intact skull base and calvarium. [...] provider Patti Piña 06/17/2025 at 6 p.m. MATHEMATICAL STATISTICIAN. Reading Location: [id number] CC: Dr. Ifeoma Davis MD; Dr. Patti Piña, DO ~ Gifted Program Teacher: Signed [facility] [id number] Discharge summary Author Patti Piña [facility] Note Date/Time June 17, 2025 7 :48pm [facility] Medical Records Department [address] [place] [address] Emergency Department Summary 06/17/25 MR#: [id number] Acct: [id number] Name: ALLIE LYNN Rep #:[id number] : 1970 55 From: Patti Piña DO [...] right side of her face. These are short- lived. She does have some pressure in the [...] too high risk to have the surgery. [facility] Medical History (Updated 06/17/25 @ 19:32 by [...] mg-325 0.5 - 1 tab PO TID LA N pain 03/10/25 Unknown History mg tablet cyclobenzaprine 10 mg tablet 10 mg PO HS MUSCLE SPASM 06/04/25 Unknown History Lactobacillus 25 billion 1 cap PO DAILY SUPPLMENT 06/26 Unknown History cell-Bifido 25 billion hxga-ZWF-iajii capsule cevimeline 30 mg capsule 1 cap [...] she believes with a vascular surgeon in [facility] next Saturday which is in 5 [...] provider Patti Piña 06/17/2025 at 6 p.m. MATHEMATICAL STATISTICIAN. Reading Location: [id number] Head/Neck CTA 06/17/25 18:12 IMPRESSION: 1. No [...] provider Patti Piña 06/17/2025 at 6 p.m. MATHEMATICAL STATISTICIAN. Reading Location: [id number] Discharge Plan Triage Chief Complaint: Headache ED [...] mg capsule 1 cap PO DAILY Lacto no.93-Raogwv-IJW-larch 25B cell-25B cell-50 mg capsule 1 cap PO DAILY Primary Care Provider: Ifeoma Davis Referrals: Ifeoma Davis MD [Primary Care Provider, Internal Medicine] Quincy Hinojosa MD [Med Staff - Active Staff, Vascular Surgery] - 5-7 Days Print Language: Grenadian Disposition Disposition: Home, Self Care What to do if you have Problems For any increased pain, shortness of breath, bleeding, nausea or vomiting, chestpain, or any unexpected problems, contact your Primary Care Provider. Call [facility] ([phone]) or report to the closest Emergency Room. Call 911 if necessary. 06/17/252232 <Electronically signed by Patti Piña DO> Cosigner Signature (if applicable): CC: Dr. Ifeoma Davis MD ~ Signed [facility] Work Phone: 1(884) 320-623509-26-2025 [facility] Discharge summary [facility] Medical Records Department [address] [place] [address] Emergency Department Summary 05/27/25 MR#: [id number] Acct: [id number] Name: ALLIE LYNN Rep #:[id number] : 1970 55 From: Juan Manuel Turpin [...] QDAY 12/09/24 Unkn own History omega-3 720 pi-tzk-zti-fish cap PO 12/09/24 Unknown Hi story oil-vit [...] mg-325 0.5 - 1 tab PO TID LA N pain 03/10/25 Unknown History mg tablet [...] motor deficits and no sensory deficits noted [place] Coma Scale: document GCS findings Spontaneous Obeys [...] narrative: Patient has a concussion. Per the Bulgarian CT head rule and Sturbridge rule imaging is not indicated. Patient was [...] mg tablet 200 mg PO QDAY vitamin Y16-pbsez acid 500-400 mcg tablet 1 tab PO QDAY Rx Instructions: administer with a meal zz-7-vpa-epa-fish oil-vit D3 720 mg- 25 mcg capsule [...] Internal Medicine] - As Needed Print Language: Grenadian Disposition Disposition: Home, Self Care What to do if you have Problems For any increased pain, shortness of breath, bleeding, nausea or vomiting, chestpain, or any unexpected problems, contact your Primary Care Provider. Call [facility] ([phone]) or report tothe closest Emergency Room. Call 911 if necessary. 05/27/251913 Cosigner Signature (if applicable): CC: Dr. Ifeoma Davis MD ~ Signed [facility]09-25-2025 Discharge summary Author Juan Manuel Turpin [facility] Note Date/Time May 27, 2025 7:14pm [facility] Medical Records Department [address] [place] [address] Emergency Department Summary 05/27/25 MR#: [id number] Acct: [id number] Name: ALLIE LYNN ANN Rep #:[id number] : 1970 55 From: Juan Manuel Turpin [...] Prior similar symptoms: No Recent [facility] Medical History Hip arthritis Degenerative [...] QDAY 12/09/24 Unkn own History omega-3 720 uc-aol-fbf-fish cap PO 12/09/24 Unknown Hi story oil-vit [...] mg-325 0.5 - 1 tab PO TID LA N pain 03/10/25 Unknown History mg tablet [...] motor deficits and no sensory deficits noted [place] Coma Scale: document GCS findings Spontaneous Obeys [...] narrative: Patient has a concussion. Per the Bulgarian CT head rule and Sturbridge rule imaging is not indicated. Patient was [...] mg tablet 200 mg PO QDAY vitamin Q78-iigfg acid 500-400 mcg tablet 1 tab PO QDAY Rx Instructions: administer with a meal sm-5-odf-epa-fish oil-vit D3 720 mg- 25 mcg capsule [...] Internal Medicine] - As Needed Print Language: Grenadian Disposition Disposition: Home, Self Care What to do if you have Problems For any increased pain, shortness of breath, bleeding, nausea or vomiting, chestpain, or any unexpected problems, contact your Primary Care Provider. Call [facility] ([phone]) or report to the closest Emergency Room. Call 911 if necessary. 05/27/251913 <Electronically signed by Juan Manuel Turpin MD> Cosigner Signature (if applicable): CC: Dr. Ifeoma Davis MD ~ Signed [facility] Work Phone: 1(692) 358-911909-25-2025 [facility] Telephone encounter Note* Telephone Encounter - Satish Hunter - 05/17/2025 4:44 PM EDT Images from the original note were not included. Fax received from [facility] dated 05/15/25, regarding New Rx Fax placed on provider desk for review/signature. [facility]09-15-2025 Miscellaneous Notes* Telephone Encounter - Satish uHnter - 05/17/2025 4:44 PM EDT Images from the original note were not included. Fax received from [facility] dated 05/15/25, regarding New Rx Fax placed on provider desk for review/signature. documented in [facility] Telephone encounter Note * Telephone Encounter - Mallory Morrison RN - 04/29/2025 8:26 AM EDT Call placed to patient and notified of below with verbalized understanding. Mallory Morrison RN [facility]08-28-2025 Miscellaneous Notes* Telephone Encounter - Mallory Morrison RN - 04/29/2025 8:26 AM EDT Call placed to patient and notified of below with verbalized understanding. Mallory Morrison RN * Telephone Encounter - Ifeoma Davis MD - 04/28/2025 5:22 PM EDT Filed the medication as requested * Telephone Encounter - Audra Peñaloza RN - 04/28/2025 4:42 PM EDT Pt called in to see if provider had called in a steroid for her. I let her know that the provider had not gotten to the message as of yet. Please call and advise. Audra Peñaloza RN * Telephone Encounter - Mallory [...] advise, Mallory Morrison RN documented in this encounterSt[facility]08-[facility]-2025 Telephone encounter Note * Telephone Encounter - Ifeoma Davis MD - 04/28/2025 5:22 PM EDT Filed the medication as requested [facility]08-27-2025 Telephone encounter Note* Telephone Encounter - Audra Peñaloza RN - 04/28/2025 4:42 PM EDT Pt called in to see if provider had called in a steroid for her. I let her know that the provider had not gotten to the message as of yet. Please call and advise. Audra Babulski, RN [facility]08-27-2025 Telephone encounter Note* Telephone Encounter - [...] Please review and advise, Mallory Morrison RN [facility]08-21-2025 Telephone encounter Note* Telephone Encounter - Jackie Freitas MA - 04/22/2025 3:41 PM EDT The following approved medication requests have been transmitted electronically. Requested Prescriptions Signed Prescriptions Disp Refills fluconazole (DIFLUCAN) 150 mg tablet 10 tablet 0 Sig: Take 1 tablet by mouth once daily for 10 days. Authorizing Provider: IFEOMA DAVIS MA [facility]08-21-2025 Miscellaneous Notes* Telephone Encounter - Jackie [...] Brennan RN - 04/22/2025 11:31 AM EDT [facility] called for clarification on Fluconazole 150 mg instructions: 1 tab daily for 10 days (repeat in 3 days if needed) # 10. Please clarify and let Liliana Javier know. documented in this encounterSt. [facility]08-[facility]-2025 Telephone encounter Note * Telephone Encounter - Ifeoma Davis MD - 04/22/2025 3:35 PM EDT I sent new rx. Ifeoma Flores MD [facility]08-21-2025 Telephone encounter Note* Telephone Encounter - Clint Brennan RN - 04/22/2025 11:31 AM EDT [facility] Barbara called for clarification on Fluconazole 150 mg instructions: 1 tab daily for 10 days (repeat in 3 days if needed) # 10. Please clarify and let Liliana Javier know. [facility]08-21-2025 Instructions* Patient Instructions* Ifeoma Davis MD - 04/22/2025 11:30 AM EDT We discussed your eye condition and recent surgery: - You reported ongoing issues with fluid leakage and discomfort following your eye surgery. The fluid leakage has improved, and your eye pressure is now stable. Continue following up with your medicare specialist as scheduled. - You mentioned a [...] not improve. - Follow up with your medicare specialist as scheduled. - Attend your MRI appointment on May 07 for your hip. - Let me know if you would like to proceed with an ENT referral for the Inspire device. Please contact the office if you have any questions or concerns. documented in this encounterSt. [facility] Hospital08-21-2025 [facility] History of Present illness Narrative* Ifeoma [...] also mentions a recent dental visit at [facility], where she discussed treatment options for her [...] excuse any unintended typographical errors. Recording using [employer] software for draft documentation of the visit was discussed with the patient/authorized vaccine customer representative; all questions welcomed and answered. Patient/authorized vaccine customer representative agreed to proceed Ifeoma Davis MD [1] Social History Tobacco Use Smoking status: Never Passive exposure: Never Smokeless tobacco: Never Vaping Use Vaping status: Never Used Substance Use Topics Alcohol use: No Drug use: No documented in this encounterSt. 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 I have seen and examined this patient. I have discussed the case and the management of this patient's care with the Resident/Fellow/Woods Boss, if applicable. I also have reviewed and agree with the assessment and plan as stated above and agree with all of its relevant components. Cynthia Ramos MD April 20, 2025 11:06 AM documented in this encounterSt. [facility] Hospital08-19-2025 Instructions* Patient Instructions* Cynthia Ramos MD [...] weeks total after surgery documented in this encounterSt. 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 [facility] NOTE Ifeoma Davis MD [address] [facility] [address] Allie Lynn is a 54-year-old female with [...] the care of multiple specialists at the [facility]. She also has a history of [...] Dr. Cynthia Ramos M.D. [place] [id number] SOCIAL HISTORY[3] Physical Exam: BP 110/62 Pulse [...] agrees with the treatment plan. Recording using [employer] software for draft documentation of the visit was discussed with the patient/authorized vaccine customer representative; all questions welcomed and answered. Patient/authorized vaccine customer representative agreed to proceed. Aislinn Reyes MPAS, PA-C MDM [1] Current Outpatient Medications [...] No Drug use: No documented in this encounterSt. [facility]08[facility] Instructions* Patient Instructions* Aislinn Reyes PA-C [...] please contact our office. documented in this encounterSt. [facility] Hospital08-02-2025 Telephone encounter Note * Telephone Encounter [...] concerns and asked them to call back [phone] at any time when available to discuss further. Shy Meier MD Ophthalmology Resident [facility] Work Phone: 1(308) 660-102308-02-2025 Miscellaneous Notes* Telephone Encounter - Shy Meier [...] concerns and asked them to call back [phone] at any time when available to discuss further. Shy Meier MD Ophthalmology Resident documented in this encounterSt. Elizabeth Hospital08-01-2025 History of Present illness Narrative* Adriana Lund MD - 04/02/2025 10:00 AM EDT -PO 1w 1d bleb leak repair OS 03/25/25 (conj advancement flap) -now on tobradex qid OS, e-mycin qhs -healing well, no leak Change t-dex to PF and use that qid -can stop e-mycin -sees Paparizojc 04/20 By signing my name below, I, [...] 03/29/2025 1:29 PM EDT documented in this encounterSt. Elizabeth Hospital08-01-2025 [facility] Tele[facility] encounter Note* Telephone Encounter - Gely Plascencia - 03/31/2025 2:22 PM EDT patient called, she lost her White Cap eye medication, requesting a new script [facility] Work Phone: 1(687) 791-841707-30-2025 Miscellaneous Notes* Telephone Encounter - Gely Plascencia - 03/31/2025 2:22 PM EDT patient called, she lost her White Cap eye medication, requesting a new script documented in this encounterSt. [facility] Hospital07-30-2025 Telephone encounter Note * Telephone Encounter - Ifeoma Davis MD - 03/31/2025 12:59 PM EDT Ordered as requested Regards, Ifeoma Davis MD [facility] Miscellaneous Notes* Telephone Encounter - Ifeoma [...] advise, Mallory Morrison RN documented in this encounterSt. Elizabeth Hospital07-30-2025 Telephone encounter Note * Telephone Encounter - Gely Plascencia - 03/31/2025 12:12 PM EDT I contacted the patient and left a voicemail informing her that you will be seeing her instead of the other physician. Just a heads-up. [facility] Work Phone: [phone] Miscellaneous Notes* Telephone Encounter - Gely Plascencia [...] of Dr. Ayala * Telephone Encounter - Geyl Plascencia - 03/31/2025 8:17 AM EDT The patient has requested that you visit on Saturday to examine her eye. * Telephone Encounter - Adriana Lund MD - 03/30/2025 5:23 PM EDT YES. I can see her in [place] tomorrow (Sat) if she wants. Otherwise she has an appt Saturday with Dr. Ayala. I am on site and happy to come over if needed. * Telephone Encounter - Gely Plascencia - 03/30/2025 2:46 PM EDT The patient reports experiencing tearing from the left eye approximately four to five times daily. Is this considered normal? [phone] sx: 03/25/2025 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 [[id number]] - Eye - Left documented in this encounterSt. Elizabeth Hospital07-30-2025 Telephone encounter Note * Telephone Encounter - Adriana Lund MD - 03/31/2025 12:03 PM EDT I moved her back to my Saturday clinic schedule - I will see her Saturday instead of Dr. Ayala [facility] Telephone encounter Note* Telephone Encounter - [...] Please review and advise, Mallory Morrison RN [facility]07-30-20[facility] Telephone encounter Note* Telephone Encounter - Gely Plascencia - 03/31/2025 8:17 AM EDT The patient has requested that you visit on Saturday to examine her eye. [facility]07-[facility] Telephone encounter Note* Telephone Encounter - Adriana Lund MD - 03/30/2025 5:23 PM EDT YES. I can see her in [place] tomorrow (Sat) if she wants. Otherwise she has an appt Saturday with Dr. Ayala. I am on site and happy to come over if needed. [facility]07-[facility] Telephone encounter Note* Telephone Encounter - Gely Plascencia - 03/30/2025 2:46 PM EDT The patient reports experiencing tearing from the left eye approximately four to five times daily. Is this considered normal? [phone] sx: 03/25/2025 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 [[id number]] - Eye - Left [facility]07-28-[facility]25 NoteHNO ID: [id number] Author: ADRIANA LUND MD Service: ? Author Type: Physician Type: Progress Notes Filed: 04/02/2025 10:40 Note Text:[facility]-25-[facility] Note* Addendum Note - Brittaney Mckeon MD - 03/26/2025 8:50 PM EDTAddended by: BRITTANEY MCKEON on: 03/26/2025 08:50 PM Modules accepted: Orders [facility]07-25-[facility]25 Miscellaneous Notes* Addendum Note - Brittaney [...] The eye clinic can be reached at [phone] and you can ask to speak to the credit verification clerk carver hand. Brittaney Mckeon MD Ophthalmology Resident, [facility] documented in this encounterSt. Elizabeth Hospital07-25-2025 Telephone encounter Note * Telephone Encounter [...] The eye clinic can be reached at [phone] and you can ask to speak to the credit verification clerk carver hand. Brittaney Mckeon MD Ophthalmology Resident, [facility] History and physical note* Emily Chaparro, MURTAZA.WEB CONTENT SPECIALIST - 03/24/2025 3:02 PM EDT Images from [...] large neck Non-male patient STOP-Bang Score: 3 [id number] Score: Age: <65 Sex: female CHF history: No Hypertension history: Yes Stroke/TIA/thromboembolism history: No Vascular disease history: Yes Diabetes history: No [id number] Score: 3 ARISCAT Score: Age: 51-80 Preoperative [...] visit for bleb leak OS Sent by [facility] doctor for bleb leak OS [...] Neurological: +BPPV. No history of TIA's, stroke, HEAVY MOBILE EQUIPMENT REPAIRER tumor, impaired sensorium, hemiplegia, paraplegia or quadraplegia. [...] pain, CHF, congenital heart defect, DVT/PE, recent [place], PTCA, open heart surgery and valve surgery. GI: Negative for: abdominal pain, dysphagia, GERD, hepatitis, irritable bowel syndrome, inflammatory bowel disease, liver disease, nausea, pancreatitis, vomiting and ETOH >2 drinks/day. : No history of dysuria, frequency or incontinence, stones or chronic kidney disease. No difficulty urinating, nocturia > 1 time per night or hematuria. EDITOR MAGAZINE: Negative for abnormal vaginal bleeding, abnormal vaginal [...] Dr. Cynthia Ramos M.D. S BALLOON,UTERINE ABLATION [id number] FAMILY HISTORY Problem Relation Age of Onset Heart Father Age 61 Ovarian cancer Maternal Grandmother Heart Maternal Grandfather Cancer Paternal Grandmother Breast Heart Son [place] Cancer Maternal Aunt 55 ovarian cancer Glaucoma [...] 8760 hours). Recent Results (from the past 61138 hours) ECHO Collection Time: 07/09/22 3:24 PM [...] 24, 2025 TIME: 3:02 PM PAGER/CONTACT #: [facility] History and physical note* Emily Chaparro APRN.CNP - 03/24/2025 3:02 PM EDT Images from the original note were not included. [place] [facility] HISTORY [...] Assessment: c/w statin PAD (peripheral artery disease) ([facility]) Assessment: 20-39% bilateral carotid artery stenosis [...] large neck Non-male patient STOP-Bang Score: 3 [id number] Score: Age: <65 Sex: female CHF history: No Hypertension history: Yes Stroke/TIA/thromboembolism history: No Vascular disease history: Yes Diabetes history: No [id number] Score: 3 ARISCAT Score: Age: 51-80 Preoperative [...] visit for bleb leak OS Sent by [facility] doctor for bleb leak OS [...] Neurological: +BPPV. No history of TIA's, stroke, HEAVY MOBILE EQUIPMENT REPAIRER tumor, impaired sensorium, hemiplegia, paraplegia or quadraplegia. [...] pain, CHF, congenital heart defect, DVT/PE, recent [place], PTCA, open heart surgery and valve surgery. GI: Negative for: abdominal pain, dysphagia, GERD, hepatitis, irritable bowel syndrome, inflammatory bowel disease, liver disease, nausea, pancreatitis, vomiting and ETOH >2 drinks/day. : No history of dysuria, frequency or incontinence, stones or chronic kidney disease. No difficulty urinating, nocturia > 1 time per night or hematuria. EDITOR MAGAZINE: Negative for abnormal vaginal bleeding, abnormal vaginal [...] adenoma CT MAXILLOFAC/SINUS 06/29/2015 normal EGD W/O [facility] SPEC VARICIES INJ 05/30/2023 Small hiatal [...] Dr. Cynthia Ramos M.D. S BALLOON,UTERINE ABLATION [address] FAMILY HISTORY Problem Relation Age of Onset Heart Father Age 61 Ovarian cancer Maternal Grandmother Heart Maternal Grandfather Cancer Paternal Grandmother Breast Heart Son [place] Cancer Maternal Aunt 55 ovarian cancer Glaucoma [...] 8760 hours). Recent Results (from the past 38718 hours) ECHO Collection Time: 07/09/22 3:24 PM [...] 3:02 PM PAGER/CONTACT #: documented in this encounterSt. Elizabeth Hospital07-23-2025 Instructions* Patient Instructions* Emily Chaparro APRN.CNP - 03/24/2025 3:02 PM EDT Images from the original note were not included. [facility] PATIENT PREOPERATIVE INSTRUCTIONS No ref. provider found has scheduled you for your procedure at this surgery center: [facility]: [phone] --[facility] [place], [address] [id number]. Please read below carefully for your personalized [...] office. If you are currently using a xtqb-sdn-ahzw injectable or oral medication for diabetes or [...] Procedures: - YOU MUST HAVE A RESPONSIBLE PRODUCT FINISHER TAKE YOU HOME. A HIDE INSPECTOR AND SORTER OR PRINCIPAL SCIENTIST CANNOT BE MADE A RESPONSIBLE PRODUCT FINISHER. - We recommend that a responsible person [...] Advance Directive, please fax a copy to [phone] or email to for it to be [...] day. Emily Chaparro APRN.DEBORAH documented in this encounterSt. Elizabeth Hospital07-23-2025 Telephone encounter Note * Telephone Encounter - Adriana Lund MD - 03/24/2025 2:18 PM EDT I told Dr. Lowery I would do [...] but called back today as documented below. [facility] Work Phone: 1(216) 249-624907-23-2025 Miscellaneous Notes* Telephone Encounter - Adriana Lund MD - 03/24/2025 2:18 PM EDT I told Dr. Lowery I would do [...] 03/24/2025 9:40 AM EDT Allie Lynn CCF# [id number] Patient calling w/update BCL Contact not working Leaking fluid still, face is wet and sticky Janet Lowery MD filed at 03/23/2025 3:55 PM Status: Signed Urgent visit for bleb leak OS Sent by [facility] doctor for bleb leak OS [...] 04/06 will revise 04/12 documented in this encounterSt. [facility] Hospital07-23-2025 Telephone encounter Note * Telephone Encounter - Jackelin Fields - 03/24/2025 9:40 AM EDT Allie Lynn CCF# [id number] Patient calling w/update BCL Contact not working Leaking fluid still, face is wet and sticky Janet Lowery MD filed at 03/23/2025 3:55 PM Status: Signed Urgent visit for bleb leak OS Sent by [facility] doctor for bleb leak OS [...] if still leaking 04/06 will revise 04/12 [facility] Work Phone: 1(525) 175-607207-22-2025 NoteDate of Procedure 03/23/2025. Stamping Press Operator Information College Recruiter: TOO. Notes Bleb leak [id number] NoteDate of Procedure 03/23/2025. Stamping Press Operator Information College Recruiter: TOO. 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 Notes No choroidals Document baseline disc [id number] NoteDate of Procedure 03/23/2025. Stamping Press Operator Information College Recruiter: TOO. Quality Right Eye Good. Left Eye Good. NFL Interpretation Right Eye Superior loss, Inferior loss. Left Eye Normal.[id number] NoteTable formatting from the original result was not included. Date of Procedure 03/23/2025. Notes Ophthalmology Exam Pachymetry (03/23/2025, 03/23/25) Right Left Thickness 543, 540 540,530 Edited by: Saranya Buchanan OA [id number] Instructions* Patient Instructions* Shyanne Parmar MD - 03/23/2025 3:07 PM EDT Please take timolol (yellow top) twice a day in the left eye And moxifloxacin (mora top) four times a day in the left eye documented in this encounterSt. Elizabeth Hospital07-22-2025 NoteCore[facility]07-22-2025 History of Present illness Narrative* Janet Lowery MD - 03/23/2025 2:24 PM EDT Urgent visit for bleb leak OS Sent by [facility] doctor for bleb leak OS [...] Janet Lowery MD 03/23/2025 documented in this encounterSt. Elizabeth Hospital07-22-2025 Telephone encounter Note * Telephone Encounter - Barbie Alicea - 03/23/2025 10:46 AM EDT Appointment scheduled with at 12:30. Patient advised to arrive on empty stomach. States she did have a granola bar and took medications around 9 am. *documentation is in secure chat* Barbie Alicea March 23, 2025 10:[address] [facility]07-22-2025 Miscellaneous Notes* Telephone Encounter - Barbie Alicea [...] revision and I'm leaving for [place] tomorrow morninguntApril 07. Maybe its better to go [facility] to be cared for Left message for patient to call the office to obtain the above information. Barbie Alicea reaching out to [facility] scheduling to find the availability of a call specialist to take over patient care with Dr. Ramos going out of the country. Janet Rivero RN March 23, 2025 10:00 AM * Telephone Encounter - Janet Rivero RN - 03/23/2025 9:50 AM EDT Spoke with patient. Sent the following message to Dr. Ramos in a Urgent Secure Chat regarding conversation: Received chart notes from [facility] Ankur Curtis MD. Patient has [...] 23, 2025 9:54 AM documented in this encounterSt. Elizabeth Hospital07-22-2025 Telephone encounter Note * Telephone Encounter - Janet Rivero RN - 03/23/2025 9:55 AM EDT Response from Dr. Ramos: yes I can see her sooner but this needs urgent revision and I'm leaving for [place] tomorrow morninguntil April 07. Maybe its better to go to [facility] to be cared for Left message for patient to call the office to obtain the above information. Barbie Alicea reaching out to [facility] scheduling to find the availability of a call specialist to take over patient care with Dr. Ramos going out of the country. Janet Rivero RN March 23, 2025 10:[address] [facility]07-22-2025 Telephone encounter Note* Telephone Encounter - Janet Rivero RN - 03/23/2025 9:50 AM EDT Spoke with patient. Sent the following message to Dr. Ramos in a Urgent Secure Chat regarding conversation: Received chart notes from [facility] Ankur Curtis MD. Patient has [...] Rivero RN March 23, 2025 9:[address] [facility]07-09-2025 Evaluation note* Diagnosis Onset Date Resolution Status Admit Date 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 acute March 10, 2025 2 :26pm Greater trochanteric bursiti s of left hip acute March 10, 2025 2 :26pm Lumbar spondylosis acute March 102024 2:26pm [employer] Work Phone: 1(959) 746-643007-09-2025 Evaluation note* Diagnosis Onset Date Resolution Status [...] 2:23pm Spondylolisthesis acute April 16, 2025 2:23pm [facility] Work Phone: 1(279) 953-568607-09-2025 Evaluation note* Diagnosis Onset Date Resolution Status [...] 3:14pm Spondylolisthesis acute June 03, 2025 3:14pm [facility] Work Phone: 1(127) [phone] Evaluation note* Diagnosis Onset Date Resolution Status [...] f left hip acute June 04 10:59am [employer] [employer] Work Phone: [phone]) [phone] Telephone encounter Note* Telephone Encounter - YESI VARGHESE - 03/01/2025 7:55 AM EDT Patient scheduled for nurse visit 03/02/25 to receive TDAP vaccine. Please place order at this time. Yesi Varghese LPN [facility]06-30-2025 Miscellaneous Notes* Telephone Encounter - YESI VARGHESE - 03/01/2025 7:55 AM EDT Patient scheduled for nurse visit 03/02/25 to receive TDAP vaccine. Please place order at this time. Yesi Varghese LPN documented in this encounterSt. Elizabeth Hospital06-26-2025 Telephone encounter Note * Telephone Encounter - Audra Peñaloza RN - 02/25/2025 1:26 PM EDT Pt called in and was asking if she was up to date on her TDAP vaccine, because she is going to visit her new grand baby. Please place the order for the vaccine as she will be coming in to get this with [place] nurse on 03/03/25. Audra Peñaloza RN [facility]06-26-2025 Miscellaneous Notes* Telephone Encounter - Audra Peñaloza RN - 02/25/2025 1:26 PM EDT Pt called in and was asking if she was up to date on her TDAP vaccine, because she is going to visit her new grand baby. Please place the order for the vaccine as she will be coming in to get this with [place] nurse on 03/03/25. Audra Peñaloza, RN documented in this encounterSt. Elizabeth Hospital05-14-2025 Telephone encounter Note * Telephone Encounter - Janet Meza LPN - 01/13/2025 10:27 AM EDT Called and updated patient, patient will call back with alternate supplier Janet Meza LPN January 13, 2025 10:[address] [facility]05-14-2025 Miscellaneous Notes* Telephone Encounter - Janet Meza LPN - 01/13/2025 10:27 AM EDT Called and updated patient, patient will call back with alternate supplier Janet Meza LPN January 13, 2025 10:28 AM * Telephone Encounter - Allie Mcknight LPN - 01/13/2025 9:12 AM EDT Roman from [facility] calling said they do not carry that [...] States she spoke with her insurance company [employer] and they state for PCP to write a new order and send to [facility]. Order pended for provider review. Please fax order to Chanelle Blank. Please call patient with an update. Angelica Arreola RN documented in this encounterSt. Elizabeth Hospital05-14-2025 Telephone encounter Note * Telephone Encounter - Allie Mcknight LPN - 01/13/2025 9:12 AM EDT Roman from [facility] said they do not carry that item requested. [facility]-14-[facility] Telephone encounter Note* Telephone Encounter - Janet Meza LPN - 01/13/2025 8:10 AM EDT Faxed order to [facility] Blank per patient request Janet Meza LPN January 13, 2025 8:[address] [facility]05-13-[facility] Telephone encounter Note* Telephone Encounter - Angelica Arreola RN - 01/12/2025 10:38 AM EDT Patient reports she has lost her "blindness cane". States she spoke with her insurance company [employer] and they state for PCP to write a new order and send to [facility]. Order pended for provider review. Please fax order to Chanelle Blank. Please call patient with an update. Angelica Arreola RN [facility]05-13-2025 Telephone encounter Note* Telephone Encounter - Germaine Berkowitz LPN - 01/12/2025 8:32 AM EDT CPAP supply order faxed. Germaine Berkowitz LPN [facility]05-13-2025 Miscellaneous Notes* Telephone Encounter - Germaine Berkowitz LPN - 01/12/2025 8:32 AM EDT CPAP supply order faxed. Germaine Berkowitz LPN documented in this encounterSt. Elizabeth Hospital04-30-2025 Telephone encounter Note * Telephone Encounter [...] she is legally blind and doesn't drive. [facility]-30-[facility] Miscellaneous Notes* Telephone Encounter - Clint [...] results and sent her CPAP orders to [facility] in [place]. They should be reaching out to her [...] 30, 2024 8:39 AM documented in this encounterSt. Elizabeth Hospital04-30-2025 Telephone encounter Note * Telephone Encounter - Letty Morales LPN - 12/30/2024 11:26 AM EDT TC to pt with no answer, left VM to return call. Please confirm if she is referring to her sleep study. I called patient on December 17 with the results and sent her CPAP orders to [facility] in [place]. They should be reaching out to her to set up machine. Letty Morales LPN [facility]04-30-2025 Telephone encounter Note* Telephone Encounter - Eve Tracey - 12/30/2024 8:38 AM EDT Patient calling in to let Michelle Chin know her results from her CPAP are now in her chart. She is asking if she had the chance to review them. Please review and advise patient. Eve Tracey December 30, 2024 8:[address] 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 She [...] any unintended typographical errors. Recording using ambient 1000 Corks software for draft documentation of the visit was discussed with the patient/authorized vaccine customer representative; all questions welcomed and answered. Patient/authorized vaccine customer representative agreed to proceed Ifeoma Davis MD documented in this encounterSt. Elizabeth Hospital04-23-2025 Telephone encounter Note * Telephone Encounter [...] is changing pharmacies from mail order to [facility] so needs a new rx sent Sharifa Amaral RN December 23, 2024 12:[address] [facility]04-23-[facility] Miscellaneous Notes* Telephone Encounter - Sharifa [...] is changing pharmacies from mail order to [facility] so needs a new rx sent Sharifa Amaral RN December 23, 2024 12:45 PM documented in this encounterSt. Elizabeth Hospital04-17-2025 Telephone encounter Note * Telephone Encounter - Letty Morales LPN - 12/17/2024 2:56 PM EDT TC to pt who voiced understanding. Agreeable to [facility] in [place]. 31-90 day follow up made. Letty Morales LPN [facility]04-17-2025 Miscellaneous Notes* Telephone Encounter - Letty Morales LPN - 12/17/2024 2:56 PM EDT TC to pt who voiced understanding. Agreeable to [facility] in [place]. 31-90 day follow up made. Letty Morales LPN * Telephone Encounter - Michelle Chin APRN.CNP - 12/17/2024 1:24 PM EDT Please CALL pt with result of sleep study--it confirms that she has sleep apnea so I will prescribeautoCPAP for her. Will plan to send to [facility] unless she has another DME she wants to use. Michelle Chin APRN.CNP documented in this encounterSt. Elizabeth Hospital04-17-2025 Telephone encounter Note * Telephone Encounter - Michelle Chin APRN.CNP - 12/17/2024 1:24 PM EDT Please CALL pt with result of sleep study--it confirms that she has sleep apnea so I will prescribeautoCPAP for her. Will plan to send to [facility] unless she has another DME she wants to use. Michelle Chin APRN.CNP [facility]04-09-2025 Evaluation note* Diagnosis Onset Date Resolution Status Admit Date Greater trochanteric bursiti s of left hip acute December 09, 2024 1:22pm Rotator cuff tendonitis acute A pril 2024 1:22pm [facility] Work Phone: [phone] Telephone encounter Note* Telephone Encounter - Janet Meza LPN - 12/08/2024 10:05 AM EDT Called and left message for patient, on self identified voicemail Janet Meza LPN December 08, 2024 10:[address] [facility]04-08-2025 Miscellaneous Notes* Telephone Encounter - Janet [...] advise, Dara Valdez RN documented in this encounterSt. Elizabeth Hospital04-07-2025 Telephone encounter Note * Telephone Encounter - Ifeoma Davis MD - 12/07/2024 5:36 PM EDT Rx for her. Regards, Ifemoa Davis MD [facility]04-07-2025 Telephone encounter Note* Telephone Encounter - Jackie Freitas MA - 12/07/2024 11:35 AM EDT This was ordered by sleep provider: Michelle Chin. Results must come from ordering provider. Once sleep provider receives results the sleep office will contact patient. Jackie Freitas MA [facility]04-07-2025 Miscellaneous Notes* Telephone Encounter - Jackie [...] results. PSS reviewed provider's response in unread PowerFilehart Message. Patient asking to be contacted as soon as results are in. She states she is struggling to sleep. * Telephone Encounter - Dara Valdez RN - 12/01/2024 8:58 AM EDT Patient calls and states that she was at [place] for Sleep study on 11/17/2024. Patient asking about results for sleep study. Please review and advise, Dara Valdez RN documented in this encounterSt. Elizabeth Hospital04-07-2025 Telephone encounter Note * Telephone Encounter [...] Please review and advise, Dara Valdez RN [facility] [facility] Telephone encounter Note* Telephone Encounter - Rupa George - 12/07/2024 10:04 AM EDT Patient calling again for status update on sleep study results. PSS reviewed provider's response in unread Layer[employer] TVt Message. Patient asking to be contacted as soon as results are in. She states she is struggling to sleep. [facility]04-01-2025 Telephone encounter Note* Telephone Encounter - Dara Valdez RN - 12/01/2024 8:58 AM EDT Patient calls and states that she was at [place] for Sleep study on 11/17/2024. Patient asking about results for sleep study. Please review and advise, Dara Valdez RN [facility]03-25-2025 Radiology Diagnostic study note [facility] Imaging Services [address] [place] [address] Hip Min 2 Views (Portable) MR#: [id number] Acct: [id number] Name: ALLIE LYNN Rep #: [id number] : 1970 F 54 From: Benton Weathers DO PCP: Dr. Ifeoma Davis MD Status: REG C LI Study:Hip Min 2 Views (Portable) Date of Exam : 11/24/24 Exam# [id number] Ordering Dr: Allie Prakash PROCEDURE: HIP MIN [...] of the left groin region. Reading Location: [id number] CC: Allie Prakash; Dr. Ifeoma Davis MD ~ Gifted Program Teacher: Signed [facility]03-21-2025 Telephone encounter Note* Telephone Encounter - Audra Peñaloza RN - 11/20/2024 12:46 PM EDT Pt called and is notified of providers results and instructions. Pt voices understanding. Audra Peñaloza RN [facility]03-21-2025 Miscellaneous Notes* Telephone Encounter - Audra Peñaloza RN - 11/20/2024 12:46 PM EDT Pt called and is notified of providers results and instructions. Pt voices understanding. Audra Peñaloza RN * Telephone Encounter - David [...] done yesterday, she can see results on [employer]. Glucose was abnormal at 73, she said [...] 71 Legend: (L) Low documented in this encounterSt. [facility]03-21-2025 Telephone encounter Note * Telephone Encounter [...] decrease nausea. Thank you David Anna APRN.DEBORAH [facility]03-21-2025 Telephone encounter Note* Telephone Encounter - [...] eGFR >=60 mL/min/1.73m 71 Legend: (L) Low [facility]03[facility]20[facility] History of Present illness Narrative* David [...] Dr. Cynthia Ramos M.D. S BALLOON,[place]BL[place] [address] ALLERGIES Ultram [Tramadol Hcl], Darvocet A500 [Propoxyphene [...] Maternal Aunt 55 ovarian cancer Heart Son [place] Ovarian cancer Maternal Grandmother Glaucoma No Family [...] - Instructed patient to contact office or [id number] after-hours promptly should condition worsen or any new symptoms appear. - Counseling [facility] and after hours crisis line 4. [...] plan. David Anna APRN.DEBORAH documented in this encounterSt. [facility] Hospital03-06-2025 Telephone encounter Note * Telephone Encounter - Janet Meza LPN - 11/05/2024 1:23 PM EST Patient updated via active [employer] Janet Meza LPN November 05, 2024 1:[address] [facility]03-06-2025 Miscellaneous Notes* Telephone Encounter - Janet Meza LPN - 11/05/2024 1:23 PM EST Patient updated via active [employer] Janet Meza LPN November 05, 2024 1:23 [...] Regards, Ifeoma Davis MD documented in this encounterSt. Elizabeth Hospital03-06-2025 Telephone encounter Note * Telephone Encounter [...] help her fatigue. Regards, Ifeoma Davis MD [facility]03-04-2025 Instructions* Patient Instructions* Ifeoma Davis MD - 11/03/2024 2:51 PM EST Try taking the percocet without trazodone to see if that helps sleep with out feeling like a hang over. documented in this encounterSt. Elizabeth Hospital03-04-2025 [facility]03-04-[facility] History of Present illness Narrative* Ifeoma [...] her everyday life. Dr. 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 States she has not had a bleed in her eye at a long time, but at the same time she states she wouldn't see it at this point. Slowly progressive loss of peripheral vision. Patient also reports that she has issueswith calcified joints/arthritis. She has moved back to [place], so she can use the [employer] for going places, [employer]. She is engaged in a lot of activities, and is giving back to the community as much as she can in every way she can. She has a son in [place], and a brother near by. Her eyes [...] extremely active in the community. Takes the [employer] bus to [employer] every Saturday, [...] available full-time. Needs include home health aid, half-way if applicable - says her boyfriend could [...] Had worked with an OT previously through [facility] in [place] previously who assisted with various techniques and [...] Maternal Aunt 55 ovarian cancer Heart Son [place] Ovarian cancer Maternal Grandmother Glaucoma No Family [...] DIFFERENTIAL Ifeoma Davis MD documented in this encounterSt. [facility] Hospital03-03-2025 Telephone encounter Note * Telephone Encounter - Laura Lepe MA - 11/02/2024 7:50 AM EST Patient given results and verbalized understanding of instructions given. Laura Lepe MA [facility]03-03-2025 Miscellaneous Notes* Telephone Encounter - Laura [...] please follow-up with PCP. documented in this encounterSt. Elizabeth Hospital03-03-2025 Telephone encounter Note * Telephone Encounter - Britta Gunn PA - 11/02/2024 7:10 AM EST Please let patient know urine culture did not reveal clear evidence of UTI. If she is persistent with symptoms, please follow-up with PCP. [facility]03-01-2025 Instructions* Patient Instructions* Chantal Pino APRN.CNP [...] pain go to ER. documented in this encounterSt. Elizabeth Hospital03-01-2025 [facility]03-01-[facility] History of Present illness Narrative* Chantal Pino APRN.CNP - 10/31/2024 1:12 PM EST Subjective The history is provided by the patient. No educational sign language interpreter was used. HPI Allie Lynn is a [...] have confirmed and edited as necessary, the [facility] Review of Systems Constitutional: Negative for chills [...] evaluation. franko Pino APRN.CNP documented in this encounterSt. Elizabeth Hospital02-19-2025 History of Present illness Narrative* Kimberley [...] PATIENT PRESENTS WITH AN IMPLANTABLE OR ATTACHED HOSPITAL FELLOW: No RADIOLOGY DEPARTMENT: Mammography PERIPHERAL IV DATA: Not applicable SIGNED BY: Rubin Carlton October 21, 2024 2:00 PM documented in this encounterSt. Elizabeth Hospital02-19-2025 [facility]02-14-2025 Telephone encounter Note* Telephone Encounter - Letty Morales LPN - 10/16/2024 2:27 PM EST TC to Dr. Fox office, [facility] did not receive fax. Sent again. Staff will make sure to speak withDr. Fox. Letty Morales LPN [facility]02-14-2025 Miscellaneous Notes* Telephone Encounter - Letty Morales LPN - 10/16/2024 2:27 PM EST TC to Dr. Fox office, [facility] did not receive fax. Sent again. [...] we'll let her know. We could use [facility] lab. She can still take flexeril. Michelle Chin APRN.WEB CONTENT SPECIALIST * Telephone Encounter - Letty Morales LPN - 09/25/2024 4:26 PM EST TC to pt who had questions about flexeril, she has been taking it every night to see if it helps with the leg spasms. Wonders if she can still take this or if she will need to stop them. Is okay withincreasing the gabapentin, uses [facility] in [place]. Aware we need to talk to Dr. Betancourt. Has upcoming appts with PCP and pain management. Is okay to do a sleep study using [facility] but is unable to travel out of town very far. Letty Morales LPN * Telephone Encounter - Michelle Chin APRN.DEBORAH - 09/25/2024 3:52 PM EST Please CALL pt and tell her I reviewed her case with Dr Jiménez. --We looked at her [facility] sleep study report--Dr Jiménez believes she [...] do thatwould she consider going to a [facility] sleep lab? Michelle Chin APRN.WEB CONTENT SPECIALIST documented in this encounterSt. Elizabeth Hospital02-11-2025 NoteCore[facility]02-11-2025 History of Present illness Narrative* Cynthia [...] Plan: As above Has been working with [facility] for - progressive pseudoxanthoma elasticum macular atrophy [...] management of this patient's care with the Resident/Fellow/Woods Boss, if applicable. I also have reviewed and agree with the assessment and plan as stated above and agree with all of its relevant components. Cynthia Ramos MD October 13, 2024 11:05 AM documented in this encounterSt. Elizabeth Hospital02-11-2025 NoteDate of Procedure 10/13/2024. Stamping Press Operator Information College Recruiter: lino. Start time: 9:55 AM. Stop time: 9:55 AM. Notes -- OCT 10/13/2024 OD atrophy, no fluid; OS atrophy, nasal fluid stable, not in [id number] Telephone encounter Note* Telephone Encounter - Jackie Freitas MA - 10/12/2024 3:27 PM EST Patient at PCP appointment. Will have patient stop at discharge to schedule PSG. Jackie Freitas MA [facility]02-10-2025 Miscellaneous Notes* Telephone Encounter - Jackie Freitas MA - 10/12/2024 3:27 PM EST Patient at PCP appointment. Will have patient stop at discharge to schedule PSG. Jackie Freitas MA * Telephone Encounter - Michelle Chin APRN.CNP - 10/08/2024 12:55 PM EST PSG ordered. Please assist pt in scheduling it at [facility]. Michelle Chin APRN.DEBORAH * Telephone Encounter [...] advise, Dara Valdez RN documented in this encounterSt. Elizabeth Hospital02-10-2025 Note[facility]02-10-2025 History of Present illness Narrative* Ifeoma [...] her everyday life. Dr. 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 States she has not had a bleed in her eye at a long time, but at the same time she states she wouldn't see it at this point. Slowly progressive loss of peripheral vision. Patient also reports that she has issueswith calcified joints/arthritis. [place] moved [place] to [place], so she can use the [employer] for going places, [email or web address]. She is engaged in a lot of activities, and is giving back to the community as much as she can in every way she can. She has a son in [place], and a brother near by. Her eyes [...] extremely active in the community. Takes the [employer] bus to [employer] every Saturday, [...] available full-time. Needs include home health aid, half-way if applicable - says her boyfriend could [...] Had worked with an OT previously through [facility] in [place] previously who assisted with various techniques and [...] Maternal Aunt 55 ovarian cancer Heart Son [place] Ovarian cancer Maternal Grandmother Glaucoma No Family [...] wellbutrin Ifeoma Davis MD documented in this encounterSt. Elizabeth Hospital02-06-2025 Telephone encounter Note * Telephone Encounter - Michelle Chin APRN.CNP - 10/08/2024 12:55 PM EST PSG ordered. Please assist pt in scheduling it at [facility]. Michelle Chin APRN.CNP [facility]02-05-2025 [facility]02-05-2025 History of Present illness Narrative* Calli [...] Dr. Cynthia Ramos M.D. S BALLOON,[place]BL[place] [address] ALLERGIES Ultram [Tramadol Hcl], Darvocet A500 [Propoxyphene [...] Maternal Aunt 55 ovarian cancer Heart Son [place] Ovarian cancer Maternal Grandmother Glaucoma No Family [...] options, medications, and coordinating care. Calli Duvall APRN.WEB CONTENT SPECIALIST documented in this encounterSt. Elizabeth Hospital02-05-2025 Telephone encounter Note * Telephone Encounter [...] scheduled with other provider. Starla Mckeon LPN [facility]02-05-2025 Miscellaneous Notes* Telephone Encounter - Starla [...] provider. Starla Mckeon LPN documented in this encounterSt. Elizabeth Hospital02-05-2025 Telephone encounter Note * Telephone Encounter [...] Please review and advise, Dara Valdez RN [facility]01-28-2025 [facility]01-28-2025 History of Present illness Narrative* Ifeoma [...] her everyday life. Dr. 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 States she has not had a bleed in her eye at a long time, but at the same time she states she wouldn't see it at this point. Slowly progressive loss of peripheral vision. Patient also reports that she has issueswith calcified joints/arthritis. She has moved back to [place], so she can use the [employer] for going places, [employer]. She is engaged in a lot of activities, and is giving back to the community as much as she can in every way she can. She has a son in [place], and a brother near by. Her eyes [...] extremely active in the community. Takes the [employer] bus to [employer] every Saturday, as well as to her [employer] studies throughout the week. States these activities [...] available full-time. Needs include home health aid, half-way if applicable - says her boyfriend could [...] Had worked with an OT previously through [facility] in [place] previously who assisted with various techniques and [...] Dr. Cynthia Ramos M.D. S BALLOON,[place] ABLATION [address] ALLERGIES Ultram [Tramadol Hcl], Darvocet A500 [Propoxyphene [...] Maternal Aunt 55 ovarian cancer Heart Son [place] Ovarian cancer Maternal Grandmother Glaucoma No Family [...] TABLET Ifeoma Davis MD documented in this encounterSt. Elizabeth Hospital01-27-2025 Telephone encounter Note * Telephone Encounter - Letty Morales LPN - 09/28/2024 8:51 AM EST Office note faxed per request. Letty Morales LPN [facility]01-24-2025 Telephone encounter Note* Telephone Encounter - Michelle Chin APRN.WEB CONTENT SPECIALIST - 09/25/2024 4:36 PM EST Please print my note and I'll write a msg to Dr Betancourt, we can fax him, then we'll let her know. We could use [facility] lab. She can still take flexeril. Michelle Chin APRN.DEBORAH [facility] Work Phone: [phone]) 181-305001-24-2025 Telephone encounter Note* Telephone Encounter - Letty Morales LPN - 09/25/2024 4:26 PM EST TC to pt who had questions about flexeril, she has been taking it every night to see if it helps with the leg spasms. Wonders if she can still take this or if she will need to stop them. Is okay withincreasing the gabapentin, uses [facility] in [place]. Aware we need to talk to Dr. Betancourt. Has upcoming appts with PCP and pain management. Is okay to do a sleep study using [facility] but is unable to travel out of town very far. Letty Morales LPN [facility]01-24-2025 Telephone encounter Note* Telephone Encounter - Michelle Chin APRN.CNP - 09/25/2024 3:52 PM EST Please CALL pt and tell her I reviewed her case with Dr Jiménez. --We looked at her [facility] sleep study report--Dr Jiménez believes she [...] do thatwould she consider going to a [facility] sleep lab? Michelle Chin APRN.CNP [facility]01-23-2025 History of Present illness Narrative* Michelle Chin APRN.DEBORAH - 09/24/2024 3:00 PM EST Images from the original note were not included. Addendum: I reviewed her case with Dr Jiménez. 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 Michelle Chin APRN.CNP [facility] New Patient Evaluation [...] gabapentin at HS. Had a PSG at [facility] -- didn't meet criteria for DAYSI [...] night A Polysomnogram performed on 07/22/24 at [facility] revealed an AHI of 8.1 (3%) [...] Dr. Cynthia Ramos M.D. S BALLOON,UTERINE ABLATION [address] ACTIVE PROBLEM LIST Patellar Tendinitis Pxe (Pseudoxanthoma [...] Maternal Aunt 55 ovarian cancer Heart Son [place] Ovarian cancer Maternal Grandmother Glaucoma No Family [...] leg movements in her sleep. PSG at [facility] didn't show significant arousals from PLMs [...] then call pt with plan Michelle Chin APRN.CNP I spent a total of 60+ minutes on the date of the service which included preparing to see the patient, [id number] patient care, completing clinical documentation, obtaining and/or reviewing separately obtained history, performing a medically appropriate examination, counseling and educating the pa tient/family/caregiver, and communicating with other HCPs (not separately reported). documented in this encounterSt. Elizabeth Hospital01-23-2025 [facility]Core[facility]01-14-2025 Note[facility]01-14-2025 History of Present illness Narrative* Destiney Pendleton APRN.DEBORAH - 09/15/2024 10:04 AM EST Allie Lynn [...] L3 SAB0 IAB0 Ectopic0 Multiple0 Live Births0 Kosher Dietary Service Supervisor History LMP: Ablation Age at Menarche: Age at First : Age at Menopause: Kosher Dietary Service Supervisor History Comments: Sexual Activity: Not Currently; Male [...] Dr. Cynthia Ramos M.D. S BALLOON,[place]ER[place] ABLATION [address] FAMILY HISTORY Problem Relation Age of Onset Heart Father Age 61 Heart Maternal Grandfather Cancer Paternal Grandmother Breast Cancer Maternal Aunt 55 ovarian cancer Heart Son [place] Ovarian cancer Maternal Grandmother Glaucoma No Family [...] Level: 3 - Low documented in this encounterSt. Elizabeth Hospital01-07-2025 Telephone encounter Note * Telephone Encounter - CloverjasmineNikkie - 09/08/2024 10:03 AM EST Allie is [...] Flonase right away and be sent to [place]. Patient has been identified by name and birthdate. Duration of symptoms: N/A Person calling: self Call patient at: on cell [phone] (home) [phone] (cell) Was an appointment scheduled: No Closing statement: Results or non-symptom based questions: Thank you for calling [facility], your call will be returned within the next business day. Nikkie Awda [facility]01-07-2025 Miscellaneous Notes* Telephone Encounter - Nikkie Awad - 09/08/2024 10:03 AM EST Allie is calling Ifeoma Davis MD today with concern regarding Refill Request Patient calling and states that her mail order pharmacy called and told her that she needs refills on just about all of her medications. 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 PHARMACY: [facility]. Patient is asking for Flonase right away and be sent to [facility]. Patient has been identified by name and birthdate. Duration of symptoms: N/A Person calling: self Call patient at: on cell [phone] (home) [phone] (cell) Was an appointment scheduled: No Closing statement: Results or non-symptom based questions: Thank you for calling [facility], your call will be returned within the next business day. Nikkie Awad documented in this encounterSt. Elizabeth Hospital12-12-2024 Telephone encounter Note * Telephone Encounter - David Anna APRN.CNP - 08/13/2024 7:09 AM EST She has an upcoming appointment with Dr. Davis next week. Have her take a few blood pressures different days after sitting to rest for a good 5 minutes and can bring readings to appointment to reviewwith her. Thank you David Anna APRN.CNP [facility]12-12-2024 Miscellaneous Notes* Telephone Encounter - David Anna APRN.CNP - 08/13/2024 7:09 AM EST She has an upcoming appointment with Dr. Davis next week. Have her take a few blood pressures different days after sitting to rest for a good 5 minutes and can bring readings to appointment to reviewwith her. Thank you David Anna APRN.WEB CONTENT SPECIALIST * Telephone Encounter - Virginia Lorenz MA [...] and by whom? Thank you David Anna APRN.WEB CONTENT SPECIALIST * Telephone Encounter - Emily Prieto LPN - 08/12/2024 11:17 AM EST Patient calling, states she was instructed to call in with 3 separate BP readings today. 9:17am BP 155/82 HR 89 10:25am BP 146/88 HR 91 11:12am BP 158/88 HR 102 documented in this encounterSt. Elizabeth Hospital12-11-2024 Telephone encounter Note * Telephone Encounter - Virginia Lorenz MA - 08/12/2024 2:30 PM EST Spoke with patient regarding below. After reviewing, it looks like patient was called on 08/10 by Patient Outreach and patient outreach MA instructed patient to call in readings. See 08/10/24 patient outreach. Virginia Lorenz MA [facility]12-11-2024 Telephone encounter Note* Telephone Encounter - Tori Morales MA - 08/12/2024 2:09 PM EST Left message for return call. [facility]12-11-2024 Telephone encounter Note* Telephone Encounter - David Anna APRN.CNP - 08/12/2024 1:30 PM EST That is higher then we would like to see. I do not see anything in the chart instructing her to do so. What is going on that she was asked to do this and by whom? Thank you David Anna APRN.DEBORAH [facility]12-11-2024 Telephone encounter Note* Telephone Encounter - Emily Prieto LPN - 08/12/2024 11:17 AM EST Patient calling, states she was instructed to call in with 3 separate BP readings today. 9:17am BP 155/82 HR 89 10:25am BP 146/88 HR 91 11:12am BP 158/[address] [facility]12-09-2024 NoteCore[facility]12-09-2024 History of Present illness Narrative* Akanksha Ross MA - 08/10/2024 11:21 AM EST POPULATION HEALTH NAVIGATION OUTREACH Action/FYI Patient is on [facility] CURRENT ROSTER Workbench list for below [...] 10, 2024 11:21 AM documented in this encounterSt. Elizabeth Hospital12-04-2024 Telephone encounter Note * Telephone Encounter - Virginia Lorenz MA - 08/05/2024 11:08 AM EST Spoke with sleep/neuro nurse here in [facility]. [facility] not at this location anymore. However, [employer] and [employer] can come to patients home and set up machine and instruct patient. Patient notified of the above and will contact insurance to inquire if they are in network. Pt willcall back and let us know where to send the order. Virginia Lorenz MA [facility]12-04-2024 Miscellaneous Notes* Telephone Encounter - Virginia Lorenz MA - 08/05/2024 11:08 AM EST Spoke with sleep/neuro nurse here in [facility]. [facility] not at this location anymore. However, [employer] and [facility] can come to patients home and set up machine and instruct patient. Patient notified of the above and will contact insurance to inquire if they are in network. Pt willcall back and let us know where to send the order. Virginia Lorenz MA * Telephone Encounter - Audra Peñaloza RN - 08/05/2024 10:32 AM EST Pt called in and reports she wasn't able to get in to sleep medicine until 10/07/24. Pt is wanting toget CPAP machine before then. I told her she would need to call her [employer] company and find out the DME they use and call us back. I said it looked like Dr Davis knew about the [facility] clinic to help her to [...] a CPAP machine and work with the [facility] clinic to help her to use it. For periodic limb movement disorders we could see if the treatment of sleep apnea would help with that symptom and if it does not we can revisit it in the future. Regards, Ifeoma Davis MD * Telephone Encounter - Virginia Lorenz MA - 07/27/2024 1:05 PM EST Printed from [employer] and placed on PCP desk. Virginia Lorenz [...] she had a sleep study done at [facility] and would like the results. Pt reports she cannot access the results. Sarahi Dawkins LPN documented in this encounterSt. Elizabeth Hospital12-04-2024 Telephone encounter Note * Telephone Encounter - Audra Peñaloza RN - 08/05/2024 10:32 AM EST Pt called in and reports she wasn't able to get in to sleep medicine until 10/07/24. Pt is wanting toget CPAP machine before then. I told her she would need to call her [employer] company and find out the DME they use and call us back. I said it looked like Dr Davis knew about the [facility] clinic to help her to use it as she is legally blind, so she would need to set that up. Pt states she is always so tired, and she doesn't want to wait until October to get it. [facility]11-27-2024 Telephone encounter Note* Telephone Encounter - Sharifa Landa - 07/29/2024 11:34 AM EST 1st attempt LVM to schedule with sleep medicine [facility]11-27-2024 Telephone encounter Note* Telephone Encounter - Virginia Lorenz MA - 07/29/2024 11:09 AM EST Allie notified and verbalized understanding. PSS, please contact patient to schedule with Sleep Medicine. Virginia Lorenz MA [facility]11-26-2024 Telephone encounter Note* Telephone Encounter - Ifeoma Davis MD - 07/28/2024 4:41 PM EST I understand her hesitancy. Because of her limitations I would like her to see sleep medicine as they might consider other methodologies like the inspire or dental appliances. Regards, Ifeoma Davis MD [facility]11-26-2024 Telephone encounter Note* Telephone Encounter - Virginia Lorenz MA - 07/28/2024 9:37 AM EST Patient notified and verbalized understanding. Patient asking if PCP feels that she would be able to do this herself with her vision. Putting the mask on, etc. Virginia Lorenz MA [facility]11-25-2024 Telephone encounter Note* Telephone Encounter - Ifeoma Davis MD - 07/27/2024 6:32 PM EST Please let patient know that she mild sleep apnea and she also likely has periodic limb movement disorder. The ideal treatment would be a CPAP machine. If she is willing to try it we will send her a CPAP machine and work with the [facility] clinic to help her to use it. For periodic limb movement disorders we could see if the treatment of sleep apnea would help with that symptom and if it does not we can revisit it in the future. Regards, Ifeoma Davis MD [facility]11-25-2024 Telephone encounter Note* Telephone Encounter - Virginia Lorenz MA - 07/27/2024 1:05 PM EST Printed from [employer] and placed on PCP desk. Virginia Lorenz MA [facility]11-25-2024 Telephone encounter Note* Telephone Encounter - David Anna APRN.CNP - 07/27/2024 12:25 PM EST We don't have the results either. Please get results then place on PCP desk to review. Thank you David Anna APRN.CNP [facility]11-25-2024 Telephone encounter Note* Telephone Encounter - Sarahi Dawkins LPN - 07/27/2024 10:40 AM EST Pt calls to report she had a sleep study done at [facility] and would like the results. Pt reports she cannot access the results. Sarahi Dawkins LPN [facility]11-08-2024 Telephone encounter Note* Telephone Encounter - Angelica Arreola RN - 07/10/2024 9:15 AM EST [facility] Central Scheduling calling and states they have received a non-signed sleep study order for mutual patient. Requesting a signed order. Signed order faxed to [phone] as requested. Angelica Arreola RN [facility]11-08-2024 Miscellaneous Notes* Telephone Encounter - Angelica Arreola RN - 07/10/2024 9:15 AM EST [facility] Central Scheduling calling and states they have received a non-signed sleep study order for mutual patient. Requesting a signed order. Signed order faxed to [phone] as requested. Angelica Arreola RN documented in this encounterSt. Elizabeth Hospital11-07-2024 Telephone encounter Note * Telephone Encounter - Janet Meza LPN - 07/09/2024 2:11 PM EST Called and spoke to patient would prefer [facility] d/t legally blind. Faxed order and facesheet to [facility] sleep study Janet Meza LPN July 09, 2024 2:[address] [facility]11-07-2024 Miscellaneous Notes* Telephone Encounter - Janet Meza LPN - 07/09/2024 2:11 PM EST Called and spoke to patient would prefer [facility] d/t legally blind. Faxed order and facesheet to [facility] sleep study Janet JOLIE Meza July 09, 2024 2:18 PM * Telephone Encounter - Ifeoma Davis MD - 07/09/2024 1:27 PM EST Staff, Please co ordinate with her to get her sleep study done in the sleep lab. [place] may be easier forher. Regards, Ifeoma Davis [...] calling: self Call patient at: at home [phone] (home) [phone] (cell) Was an appointment scheduled: No Closing statement: Results or non-symptom based questions: Thank you for calling [facility], your call will be returned within the next business day. Myra Mathur documented in this encounterSt. Elizabeth Hospital11-07-2024 Telephone encounter Note * Telephone Encounter - Ifeoma Davis MD - 07/09/2024 1:27 PM EST Staff, Please co ordinate with her to get her sleep study done in the sleep lab. [place] may be easier forher. Regards, Ifeoma Davis MD [facility]11-07-2024 Telephone encounter Note* Telephone Encounter - Judith Quach LPN - 07/09/2024 7:30 AM EST Patient given results and verbalized understanding of instructions given. Judith Qauch LPN [facility]11-07-2024 Miscellaneous Notes* Telephone Encounter - Judith Quach LPN - 07/09/2024 7:30 AM EST Patient given results and verbalized understanding of instructions given. Judith Quach LPN * Telephone Encounter - Adriana Vidal APRN.DEBORAH - 07/09/2024 7:16 AM EST Please notify that covid/flu/rsv testing negative. Continue with plan of care as discussed during visit. documented in this encounterSt. [facility] Hospital11-07-2024 Telephone encounter Note * Telephone Encounter - Adriana Vidal APRN.DEBORAH - 07/09/2024 7:16 AM EST Please notify that covid/flu/rsv testing negative. Continue with plan of care as discussed during visit. [facility] Work Phone: 1(255) 226-969711-06-2024 History of Present illness Narrative* Alise Dejesus APRN.DEBORAH - 07/08/2024 5:44 PM EST CC: Patient [...] Dr. Cynthia Ramos M.D. S BALLOON,UTERINE ABLATION [address]310 ALLERGIES Ultram [Tramadol Hcl], Darvocet A500 [Propoxyphene [...] Maternal Aunt 55 ovarian cancer Heart Son [place] Ovarian cancer Maternal Grandmother Glaucoma No Family [...] Patient agreeable to treatment plan. Alise Dejesus APRN.WEB CONTENT SPECIALIST documented in this encounterSt. Elizabeth Hospital11-06-2024 Telephone encounter Note * Telephone Encounter - Angelica Arreola RN - 07/08/2024 11:07 AM EST Patient returned call. Patient states yes, she is willing to do an in house test. States she is "willing to do whatever Dr. Davis thinks is best". Please call patient with response or any new test orders. Angelica Arreola RN [facility]11-06-2024 Telephone encounter Note* Telephone Encounter - Clint Brennan RN - 07/08/2024 9:52 AM EST Phoned pt. No answer. No voicemail. [facility]11-05-2024 Telephone encounter Note* Telephone Encounter - Ifeoma Davis MD - 07/07/2024 5:13 PM EST Would she be willing for an inhouse test? Due to her blindness? Regards, Ifeoma Davis MD [facility]11-05-2024 Telephone encounter Note* Telephone Encounter - [...] calling: self Call patient at: at home [phone] (home) [phone] (cell) Was an appointment scheduled: No Closing statement: Results or non-symptom based questions: Thank you for calling [facility], your call will be returned within the next business day. Myra Mathur [facility]11-05-2024 Telephone encounter Note* Telephone Encounter - [...] daily at bedtime for 181 days. Myra Matuhr July 07, 2024 9:[address] [facility]11-05-2024 Miscellaneous Notes* Telephone Encounter - Toyin Myra Mathur - 07/07/2024 9:49 AM EST Prescription Refill [...] 07, 2024 9:49 AM documented in this encounterSt. Elizabeth Hospital10-28-2024 Telephone encounter Note * Telephone Encounter [...] Dawkins LPN June 29, 2024 10:[address] [facility]10-28-2024 Miscellaneous Notes* Telephone Encounter - Sarahi [...] 29, 2024 10:14 AM documented in this encounterSt. Elizabeth Hospital10-14-2024 History of Present illness Narrative* Chana Bridges MA - 06/15/2024 3:47 PM EDT POPULATION HEALTH NAVIGATION OUTREACH Action/ Med Adherence Atorvastatin: Last fill 03/04/24; 90 days - 0 refills Needs new Rx Unable to reach via phone (did not ring); [employer] message sent Reason for Outreach Med Adherence Patient Contacted: Unable or unnecessary to reach patient: Unable to leave message [employer] message sent Navigation Signature: Chana Bridges MA June 15, 2024 3:48 PM documented in this encounterSt. Elizabeth Hospital10-11-2024 History of Present illness Narrative* Akanksha Ross MA - 06/12/2024 9:43 AM EDT POPULATION HEALTH NAVIGATION OUTREACH Action/FYI Patient is on [facility] CURRENT ROSTER Workbench list for below [...] Spoke to patient. Scheduled mammogram 06-18-24 in [place] Declined influenza Updated upcoming 2024 OV notes Please address due care gaps and HCC gap closure Reason for Outreach Care Gap/HCC or Scheduling Wellness Visits Care Gaps due: Breast Cancer Screening Flu Vaccine Patient Contacted: Spoke to patient/parent/or legal guardian Patient identified by name and : Yes Care Gap/HCC/Scheduling Wellness actions taken: Patient scheduled/pended orders: Breast Cancer Screening 06/18/2024 in RADIO MAMMO [facility] with SCREEN MAMMO [facility] - Encounter for screening mammogram for malignant neoplasm of breast [Z12.31] 08/18/[address] [facility] with CYNTHIA RAMOS 6 months VaTa and mac OCT 09/29/2024 in INTM [facility] with IFEOMA DAVIS - 6 mo follow up; routine, Please address due care gap and HCC gap closure HCC related Navigation Signature: Akanksha Ross MA June 12, 2024 9:43 AM documented in this encounterSt. Elizabeth Hospital09-27-2024 History of Present illness Narrative* Aldair [...] will notify Pharmacy Navigation Signature: Eileen Quinteros [facility] Health Navigator May 29, 2024 2:07 PM documented in this encounterSt. Elizabeth Hospital09-12-2024 Telephone encounter Note * Telephone Encounter [...] and have staff phone her to schedule. [phone] [facility]09-12-2024 Miscellaneous Notes* Telephone Encounter - Clint [...] and have staff phone her to schedule. [phone] documented in this encounterSt. Elizabeth Hospital09-09-2024 Telephone encounter Note * Telephone Encounter - Khalida Agarwal - 05/11/2024 1:05 PM EDT Letter placed in mail to be mailed out to patient. Khalida Agarwal May 11, 2024 1:[address] [facility]09-09-2024 Miscellaneous Notes* Telephone Encounter - Khalida [...] 06, 2024 3:18 PM documented in this encounterSt. Elizabeth Hospital09-05-2024 Telephone encounter Note * Telephone Encounter - Cynthia Ramos MD - 05/07/2024 4:30 PM EDT Condition is permanent. Letter updated and forwarded to Sana. Cynthia Ramos MD 05/07/2024 4:[address] [facility]09-04-2024 Telephone encounter Note* Telephone Encounter - Barbie Alicea - 05/06/2024 3:16 PM EDT Patient states Certificate of Blindness letter dated 04/13 requires a duration. Patient would like letter mailed once completed. Barbie Alicea May 06, 2024 3:[address] [facility]09-03-2024 Telephone encounter Note* Telephone Encounter - Cynthia Ramos MD - 05/05/2024 8:58 AM EDT Letter created. Please mail/fax. Cynthia Ramos MD 05/05/2024 8:[address] [facility]09-03-2024 Miscellaneous Notes* Telephone Encounter - Cynthia [...] fax to [facility] at [phone]. Please advise Barbie Alicea May 01, 2024 11:58 AM documented in this encounterSt. Elizabeth Hospital08-30-2024 Telephone encounter Note * Telephone Encounter - Barbie Alicea - 05/01/2024 11:56 AM EDT Patient would like a letter stating dx, and what visual acuity is. Letter is needed for patient to get extra assistance with decreased vision. Once completed fax to [facility] at [phone]. Please advise Barbie Alicea May 01, 2024 11:[address] [facility]08-26-2024 Telephone encounter Note* Telephone Encounter - [...] needed. Modesta Gallardo RN 2024 5:[address] [facility]08-26-2024 Miscellaneous Notes* Telephone Encounter - Modesta [...] RN 2024 5:26 PM documented in this encounterSt. Elizabeth Hospital08-13-2024 Telephone encounter Note * Telephone Encounter - Emy Hanks - 04/14/2024 1:41 PM EDT Certificate scanned and mailed to patient. [facility]08-13-2024 Miscellaneous Notes* Telephone Encounter - Emy Hanks - 04/14/2024 1:41 PM EDT Certificate scanned and mailed to patient. * Telephone Encounter - yCnthia Ramos MD - 04/14/2024 12:11 PM EDT Done. Cynthia Ramos MD 04/14/2024 12:11 PM * Telephone Encounter - Khalida Agarwal - 04/13/2024 1:42 PM EDT Patient states she needs a new certificate of blindness for a handicap placard. Khalida Agarwal April 13, 2024 1:44 PM documented in this encounterSt. Elizabeth Hospital08-13-2024 Telephone encounter Note * Telephone Encounter - Cynthia Ramos MD - 04/14/2024 12:11 PM EDT Done. Cynthia Ramos MD 04/14/2024 12:[address] [facility]08-12-2024 Telephone encounter Note* Telephone Encounter - Khalida Agarwal - 04/13/2024 1:42 PM EDT Patient states she needs a new certificate of blindness for a handicap placard. Khalida Agarwal April 13, 2024 1:[address] [facility]08-10-2024 History of Present illness Narrative* Britta Gunn PA - 04/11/2024 12:02 PM EDT This note was created using i2weriter. Subjective Allie Lynn is a 53 year [...] CT MAXILLOFAC/SINUS Comment: normal 05[facility]30[facility]2023[facility] Comment: Small hiatal hernia, [...] Maternal Aunt 55 ovarian cancer Heart Son [place] Ovarian cancer Maternal Grandmother Glaucoma No Family [...] ER evaluation. KENA Medrano documented in this encounterSt. Elizabeth Hospital08-01-2024 Telephone encounter Note * Telephone Encounter - Lina Murillo LPN - 04/02/2024 8:17 AM EDT Patient notified of below results. Lina Murillo LPN [facility]08-01-2024 Miscellaneous Notes* Telephone Encounter - Lina Murillo LPN - 04/02/2024 8:17 AM EDT Patient notified of below results. Lina Murillo LPN * Telephone Encounter - Lina Murillo LPN - 04/02/2024 8:15 AM EDT ----- Message from Ifeoma Davis MD sent at 04/01/2024 7:07 PM EDT ----- You are negative for hep C and HIV documented in this encounterSt. Elizabeth Hospital08-01-2024 Telephone encounter Note * Telephone Encounter - Lina Murillo LPN - 04/02/2024 8:15 AM EDT ----- Message from Ifeoma Davis MD sent at 04/01/2024 7:07 PM EDT ----- You are negative for hep C and HIV [facility]07-30-2024 History of Present illness Narrative* Ifeoma [...] her everyday life. Dr. 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 States she has not had a bleed in her eye at a long time, but at the same time she states she wouldn't see it at this point. Slowly progressive loss of peripheral vision. Patient also reports that she has issueswith calcified joints/arthritis. [place] moved back to [place], so she can use the [employer] for going places, [employer]. She is engaged in a lot of activities, and is giving back to the community as much as she can in every way she can. She has a son in [place], and a brother near by. Her eyes [...] extremely active in the community. Takes the [employer] bus to [employer] every Saturday, [...] available full-time. Needs include home health aid, half-way if applicable - says her boyfriend could [...] with an OT previously through [facility] in [place] previously who assisted with various techniques and [...] Dr. Cynthia Ramos M.D. S BALLOON,UTERINE ABLATION [address] ALLERGIES Ultram [Tramadol Hcl], Darvocet A500 [Propoxyphene [...] Maternal Aunt 55 ovarian cancer Heart Son [place] Ovarian cancer Maternal Grandmother Glaucoma No Family [...] exercise Ifeoma Davis MD documented in this encounterSt. 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 I have seen and examined this patient. I have discussed the case and the management of this patient's care with the Resident/Fellow/Woods Boss, if applicable. I also have reviewed and agree with the assessment and plan as stated above and agree with all of its relevant components. Cynthia Ramos MD February 18, 2024 1:35 PM documented in this encounterSt. Elizabeth Hospital06-18-2024 NoteDate of Procedure 02/18/2024. Stamping Press Operator Information College Recruiter: tri. Start time: 12:53 PM. Stop time: 1:04 PM. Notes -- OCT macula 02/18/2024 OD atrophy; OS scar/atrophy, full thickness holeZEISS 01-01-2024 Telephone encounter Note* Telephone Encounter - Calli Duvall APRN.WEB CONTENT SPECIALIST - 01/01/2024 1:16 PM EDT Prempro is prescribed by gynecology Calli Duvall APRN.WEB CONTENT SPECIALIST [facility]05-01-2024 Miscellaneous Notes* Telephone Encounter - Calli Duvall APRN.CNP - 01/01/2024 1:16 PM EDT Prempro is prescribed by gynecology Calli Duvall APRN.WEB CONTENT SPECIALIST * Telephone Encounter - Allie Mcknight LPN [...] you. Allie Mcknight LPN. documented in this encounterSt. Elizabeth Hospital05-01-2024 Telephone encounter Note * Telephone Encounter [...] Please advise. Thank you. Allie Mcknight LPN. [facility]04-26-2024 Telephone encounter Note* Telephone Encounter - Tori Morales MA - 12/27/2023 9:04 AM EDT Patient notified, [facility]04-26-[facility] Miscellaneous Notes* Telephone Encounter - Tori [...] the Gabapentin rx. She is going to [facility] via the bus and was hoping to picking belt operator rx while she was out. Please advise * Telephone Encounter - Allie Mcknight LPN - 12/25/2023 2:00 PM EDT Patient calling she had MRI of her right shoulder done at [facility]. She does not see Dr Brush until December 30 for possible injection or what treatment he plans to do. Patient was asking for a Gabapentin rx. She had taken it in the past. Patient said she did not have a tear, but not sure how to explain the results. Patient is going to ask [facility] to fax report, She is legally blind so she can not drive, to come to appt with provider right now. Patient uses [facility] for [facility] pharmacy, can get someone to picking belt operator rx for her. Please advise documented in this encounterSt. Elizabeth Hospital04-26-2024 Telephone encounter Note * Telephone Encounter - David Anna APRN.CNP - 12/27/2023 7:29 AM EDT Gabapentin ordered as requested. Thank you David Anna APRN.CNP [facility]04-25-2024 Telephone encounter Note* Telephone Encounter - Allie Mcknight LPN - 12/26/2023 2:02 PM EDT Patient calling to check status of request for the Gabapentin rx. She is going to [facility] via the bus and was hoping to picking belt operator rx while she was out. Please advise [facility]04-24-2024 Telephone encounter Note* Telephone Encounter - Allie Mcknight LPN - 12/25/2023 2:00 PM EDT Patient calling she had MRI of her right shoulder done at [facility]. She does not see Dr Brsuh until December 30 for possible injection or what treatment he plans to do. Patient was asking for a Gabapentin rx. She had taken it in the past. Patient said she did not have a tear, but not sure how to explain the results. Patient is going to ask [facility] to fax report, She is legally blind so she can not drive, to come to appt with provider right now. Patient uses [facility] for her pharmacy, can get someone to picking belt operator rx for her. Please advise [facility]04-23-[facility] History of Present illness Narrative* Destiney Pendleton APRN.WEB CONTENT SPECIALIST - 12/24/2023 12:45 PM EDT Allie is a 53 year old who presents for an annual gynecologic exam without complaints. Postmenopausal: ablation 2011- no bleeding HRT use: Yes, prempro Last Pap: 07/03/2019 normal HPV: 07/01/2019 negative History of abnormal pap: Yes Last mammogram: 2023 normal History of abnormal mammogram: No Sexually active: No OB History T0 L3 SAB0 IAB0 Ectopic0 Multiple0 Live Births0 Kosher Dietary Service Supervisor History LMP: Ablation Age at Menarche: Age at First : Age at Menopause: Kosher Dietary Service Supervisor History Comments: Sexual Activity: Not Currently; Male [...] Dr. Cynthia Ramos M.D. S BALLOON,UTERINE ABLATION [address] FAMILY HISTORY Problem Relation Age of Onset Heart Father Age 61 Heart Maternal Grandfather Cancer Paternal Grandmother Breast Cancer Maternal Aunt 55 ovarian cancer Heart Son [place] Ovarian cancer Maternal Grandmother Glaucoma No Family [...] external genitalia normal, normal Bartholin's glands, urethra, [place]'s glands, no vulvar lesions, no cervical lesions, [...] year or sooner as needed Destiney Pendleton APRN.WEB CONTENT SPECIALIST documented in this encounterSt. Elizabeth Hospital03-18-2024 History of Present illness Narrative* Adriana Vidal APRN.DEBORAH - 11/18/2023 10:45 AM EDT Subjective HPI [...] Dr. Cynthia Ramos M.D. S BALLOON,UTERINE ABLATION [address]221 ALLERGIES Ultram [Tramadol Hcl], Darvocet A500 [Propoxyphene [...] Maternal Aunt 55 ovarian cancer Heart Son [place] Ovarian cancer Maternal Grandmother Glaucoma No Family [...] - PREDNISONE 10 MG TABLET Adriana Vidal APRN.WEB CONTENT SPECIALIST documented in this encounterSt. Elizabeth Hospital03-13-2024 Miscellaneous Notes* Telephone Encounter - Angelica [...] you. Angelica Arreola RN. documented in this encounterSt. Elizabeth Hospital02-23-2024 History of Present illness Narrative* Alessandra [...] or Scheduling/Wellness visits Payer: Payor: [facility] [employer] [address] [facility] / Plan: [employer] MEDICARE ADVANTAGE HMO [...] 25, 2023 9:44 AM documented in this encounterSt. Elizabeth Hospital02-09-2024 Miscellaneous Notes* Letter - Coordinator, Sidney - 10/11/2023 1:18 PM EST October 14, 2023 PID: [id number] Allie Lynn [address] [place] [address] Dear Ms. Lynn, We are pleased to [...] report will be kept on file at [facility] as part of your permanent medical record and are available for your continuing care. Thank you for allowing us to help in meeting your health care needs. Sincerely, Dr. Muñiz Interpreting Radiologist [facility] (Normal over 40) documented in this encounterSt. Elizabeth Hospital02-08-2024 History of Present illness Narrative* Carmen Sol [...] PATIENT PRESENTS WITH AN IMPLANTABLE OR ATTACHED HOSPITAL FELLOW: No RADIOLOGY DEPARTMENT: Mammography PERIPHERAL IV DATA: Not applicable SIGNED BY: Rubin Alicea October 10, 2023 1:08 PM documented in this encounterSt. Elizabeth Hospital02-06-2024 Miscellaneous Notes* Telephone Encounter - Dara Valdez RN - 10/08/2023 10:43 AM EST Cande SOTOmerchandising intern at [employer] calls to report that completed health risk assessment care plan update was done and can be reviewed in availability portal. Cande states that provider can attend care team meeting by calling Cande. Dara Valdez RN documented in this encounterSt. Elizabeth Hospital02-02-2024 History of Present illness Narrative* Mary [...] or Scheduling/Wellness visits Payer: Payor: [facility] [employer] / Plan: [facility] MEDICARE ADVANTAGE HMO / Product [...] 04, 2023 9:40 AM documented in this encounterSt. 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 I have seen and examined this patient. I have discussed the case and the management of this patient's care with the Resident/Fellow/Woods Boss, if applicable. I also have reviewed and agree with the assessment and plan as stated above and agree with all of its relevant components. Cynthia Rmaos MD August 16, 2023 7:06 PM documented in this encounterSt. Elizabeth Hospital11-21-2023 Miscellaneous Notes* Telephone Encounter - Celeste [...] notify patient. Amy Adams documented in this encounterSt. [facility] Hospital09-28-[facility]23 Nurse Note* Mel Garcia RN - 05/30/2023 2:[address] Connelly at bedside to discuss procedure/findings with patient and her friend. [facility]* Mel Garcia RN - 05/30/2023 2:[address] Connelly at bedside to discuss procedure/findings with patient and her friend. documented in this encounterSt. Elizabeth Hospital09-28-2023 Anesthesiology Preoperative evaluation and management note* [...] Moderate Additional Comments: None Andry Connelly MD [facility] Work Phone: 1(877) 132-119509-28-2023 Miscellaneous Notes* Anesthesia PreOp - Andry Connelly [...] None Andry Connelly MD documented in this encounterSt. Elizabeth Hospital09-19-2023 History of Present illness Narrative* [place] [...] her everyday life. Dr. 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 States she has not had a bleed in her eye at a long time, but at the same time she states she wouldn't see it at this point. Slowly progressive loss of peripheral vision. Patient also reports that she has issueswith calcified joints/arthritis. Just sold her home here in [place] and moved to [place] with her boyfriend, and her boyfriend doesn't feel like she's entirely safe in her day to day activities. Patient called [facility] and they advised that she have a home health order placed and faxed over to them-reports she's not sure all that she can be helped with. She is extremely active in the community. Takes the [employer] bus to [employer] every Saturday, [...] available full-time. Needs include home health aid, half-way if applicable - says her boyfriend could [...] Had worked with an OT previously through [email or web address] in [place] previously who assisted with various techniques and [...] Dr. Cynthia Ramos M.D. 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 Trigger finger, unspecified finger, unspecified laterality - ICD9: 727.03, ICD10: M65.30 Refills provided on meloxicam per pt request - [facility] 4. Mixed hyperlipidemia - [...] plan. [place] Avalos PA-C documented in this encounterSt. Elizabeth Hospital09-06-2023 Miscellaneous Notes* Telephone Encounter - Sita Mauricio LPN - 05/08/2023 9:25 AM EDT PATIENT NOTIFIED OF SAME. * Telephone Encounter - Ariadne Zaidi APRN.CNP - 05/07/2023 4:28 PM EDT Printed, will sign, please call patient to picking belt operator. Thanks! * Telephone Encounter - Lina Murillo LPN - 05/07/2023 1:16 PM EDT Patient is needing to renew her handicapped placard, it expires this month. Please call when approved and ready for pickup. Lina Murillo LPN documented in this encounterSt. Elizabeth Hospital09-01-2023 Miscellaneous Notes* Telephone Encounter - Fern [...] notify patient. Marnie Adams documented in this encounterSt. Elizabeth Hospital08-29-2023 Instructions* Patient Instructions* Cande Pozo PA-C - [...] If you do not have a responsible bus driver supervisor (family member or friend) withyou to take you home, your exam cannot be done with sedation and will be cancelled. Please bring a list of all of your current medications, including any Szao-ytp-[id number] medications with you. Medications If you take [...] your exam. 2 08/2019 documented in this encounterSt. Elizabeth Hospital08-29-2023 History of Present illness Narrative* Cande [...] specimens collected. Repeat in 5 years EGD 2017 Impression: - Normal esophagus. - Erythematous mucosa [...] Abs Lymph 1.00 - 4.00 k/uL 1.42 Iosco% % 9.8 Abs Iosco <0.87 k/uL 0.58 Eosin% % 3.1 Abs [...] x 5 (03/12/17) DELIVERY ONLY 1988, 1991, 1994 , low cervical-x 3 COLONOSCOPY FLX DX [...] Dr. Cynthia Ramos M.D. [place] [address] Allergies: ALLERGIES Allergen Reactions Ultram [Tramadol Hc* [...] Maternal Aunt 55 ovarian cancer Heart Son [place] Ovarian cancer Maternal Grandmother Glaucoma No Family [...] which included preparing to see the patient, imeh-yi-[id number] patient care, completing clinical documentation, obtaining and/or reviewing separately obtained history, performing a medically appropriate examination, counseling and educating the pat ient/family/caregiver, ordering medications, tests, or procedures, communicating with other HCPs (not separately reported), independently interpreting results (not separately reported), communicatingresults to the patient/family/caregiver, and care coordination (not separately reported). Cande Pozo PA-C April 30, 2023 1:23 PM documented in this encounterSt. Elizabeth Hospital08-24-2023 History of Present illness Narrative* Massimo Roberts MD - 04/25/2023 2:12 PM EDT Massimo Roberts MD Department of Orthopaedics Orthopaedics [address] [facility] [address] Dept: [phone] Dept April 25, 2023 CHIEF COMPLAINT: Established [...] Dr. Cynthia Ramos M.D. [place] [address] Medications: Current Outpatient Medications Medication Sig keTORolac [...] anxiety) Massimo Roberts MD documented in this encounterSt. Elizabeth Hospital08-14-2023 Miscellaneous Notes* Telephone Encounter - Allie [...] cost. Starla Mckeon LPN documented in this encounterSt. Elizabeth Hospital06-20-2023 History of Present illness Narrative* Cynthia [...] management of this patient's care with the Resident/Fellow/Woods Boss, if applicable. I also have reviewed and agree with the assessment and plan as stated above and agree with all of its relevant components. Cynthia Ramos MD February 19, 2023 3:11 PM documented in this encounterCleveland [id number] Miscellaneous Notes* Telephone Encounter - Celeste Cardona [...] you. Celeste Cardona LPN documented in this encounterSt. Elizabeth Hospital05-02-2023 Discharge summary Author Sharifa Morrissey [facility] January 01, 2023 12:18pm Note Date/Time January 01, 2023 12:18p [facility] [address] [place] [address] [address] [place] [address] / REHABILITATION SERVICES DISCHARGE SUMMARY MR#: [id number] Acct: [id number] Name: ALLIE LYNN Rep #: [id number] : 1970 52 From: Sharifa Morrissey OTR/L, [...] discharge status. % Improvement: 80 Objective/Function: right coal hauler strength 50#. left coal hauler strength 40# (US completed previous to coal hauler). right RF PIP -5/45. left MF PIP -15/50 Patient Goals: Regain Mobility, Regain Strength, Decrease Pain, Use Hand/Wrist/Arm Normally Again Goal:Daily scar massage when approriate: Yes Goal:ROM equal to unaffected hand: Yes Goal:Jail Guard/Pinch strength at least 75% of unaffected hand: [...] please fell free to call me at [phone]. Thank you for the referral of this patient. Sincerely, Sharifa Morrissey, OTR/L, CHT <Electronically signed by Sharifa Morrissey OTR/Yonathan, CHT> 01/01/23 9527 CC: Dr. 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 Please send 90 days to [facility] Rx Mail order. Please call patient once 14 days is sent to [facility]. Patient aware RX will be sent to pharmacy. No need to notify patient. Patient aware RX escripted to mail away pharmacy. No need to notify patient. Melly Adams' documented in this encounterSt. Elizabeth Hospital04-04-2023 Instructions* Patient Instructions* Cynthia Ramos MD - 12/04/2022 11:15 AM EDT Continue Prednisolone (pink/white) 1 drop LEFT eye 4 x daily Continue Ketorolac (saunders) 1 drop LEFT eye 4 x daily OK to use refresh or gel drop documented in this encounterSt. Elizabeth Hospital04-04-2023 History of Present illness Narrative* Cynthia [...] management of this patient's care with the Resident/Fellow/Woods Boss, if applicable. I also have reviewed and agree with the assessment and plan as stated above and agree with all of its relevant components. Cynthia Ramos MD December 04, 2022 11:14 AM documented in this encounterSt. Elizabeth Hospital03-23-2023 Instructions* Patient Instructions* Cynthia Ramos MD - 11/22/2022 12:23 PM EDT STOP Polymyxin trimethoprim (clear/white) Continue Prednisolone (pink/white) 1 drop LEFT eye 4 x daily Continue Ketorolac (saunders) 1 drop LEFT eye 4 x daily OK to use refresh OK to stop documented in this encounterSt. Elizabeth Hospital03-23-2023 History of Present illness Narrative* Cynthia [...] management of this patient's care with the Resident/Fellow/Woods Boss, if applicable. I also have reviewed and [...] management of this patient's care with the Resident/Fellow/Woods Boss, if applicable. I also have reviewed and agree with the assessment and plan as stated above and agree with all of its relevant components. Cynthia Ramos MD September 25, 2022 3:18 PM documented in this encounterSt. Elizabeth Hospital03-20-2023 Miscellaneous Notes* Telephone Encounter - Henrik [...] Saturday evening dileep seen. She lives in [place] and does not have transportation available. We discussed being seen at the ED for evaluation and potential evaluation by an carver hand from [facility]. I advised that if she is not seen in the ED on 11/18/2022 that she either follow-up with Dr. Torres in the [facility] office or contact [facility] to be seen there. She has seen doctors at that office in the past. Henrik Chen MD documented in this encounterSt. Elizabeth Hospital03-20-2023 History of Present illness Narrative* Valentine [...] 19, 2022 3:49 PM documented in this encounterSt. Elizabeth Hospital03-20-2023 Miscellaneous Notes* Telephone Encounter - Khalida [...] develops new flashes or floaters. As the [place] doctor discussed with her, this can sometimes occur and we can often treat it with alaser in the office. We can discuss at her next appointment. Cynthia Ramos MD 11/19/2022 3:31 PM * Telephone Encounter - Khalida Agarwal - 11/19/2022 9:46 AM EDT Received office notes from [place]. Patient was seen on 11/18 at [facility] regarding abnormal pupil and hemorrhage [...] and she was also seen at the [place] [facility]. She states that the doctor at that office removed eye patch and noticed a "cosmetic issue"where "vitreous gel landed below pupil". I asked patient to have [place] fax over their notes so I can [...] 19, 2022 8:36 AM documented in this encounterSt. Elizabeth Hospital03-20-2023 History of Present illness Narrative* Taina Fan PA-C - 11/19/2022 2:59 PM EDT Taina Fan PA-C Department of Orthopaedics Orthopaedics [address] [facility] [address] Dept: [phone] Dept November 19, 2022 CHIEF COMPLAINT: Established [...] for OT was placed and faxed to [facility]. We discussed proper hand washing, no soaking [...] [Hydrocodone-Acetaminophen] This note was partially generated using [employer] voice recognition system, and there may be [...] site. Alis Eid LPN documented in this encounterSt. Elizabeth Hospital03-17-2023 Instructions* Patient Instructions* Cynthia Ramos MD [...] Shadow in peripheral vision documented in this encounterSt. Elizabeth Hospital03-17-2023 History of Present illness Narrative* Cynthia [...] management of this patient's care with the Resident/Fellow/Woods Boss, if applicable. I also have reviewed and [...] management of this patient's care with the Resident/Fellow/Woods Boss, if applicable. I also have reviewed and agree with the assessment and plan as stated above and agree with all of its relevant components. Cynthia Ramos MD September 25, 2022 3:18 PM documented in this encounterSt. Elizabeth Hospital03-16-2023 History of Past illness Narrative* Problem Noted Date Resolved Date Nuclear senile cataract of left eye 11/15/2022 11/15/2022 Combined 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 06/25/2022 06/25/2022 Photopsia 06/25/2022 06/25/2022 documented as of this encounter (statuses as of 11/16/2022) [facility] of Past illness Narrative* Problem Noted Date Resolved Date Nuclear senile cataract of left eye 11/15/2022 11/15/2022 Combined 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 06/25/2022 06/25/2022 Photopsia 06/25/2022 06/25/2022 documented as of this encounter (statuses as of 11/19/2022) [facility] of Past illness Narrative* Problem Noted Date Resolved Date Nuclear senile cataract of left eye 11/15/2022 11/15/2022 Combined 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 06/25/2022 06/25/2022 Photopsia 06/25/2022 06/25/2022 documented as of this encounter (statuses as of 11/20/2022) [facility] of Past illness Narrative* Problem Noted Date Resolved Date Nuclear senile cataract of left eye 11/15/2022 11/15/2022 Combined 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 06/25/2022 06/25/2022 Photopsia 06/25/2022 06/25/2022 documented as of this encounter (statuses as of 11/20/2022) [facility] of Past illness Narrative* Problem Noted Date Resolved Date Nuclear senile cataract of left eye 11/15/2022 11/15/2022 Combined 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 06/25/2022 06/25/2022 Photopsia 06/25/2022 06/25/2022 documented as of this encounter (statuses as of 11/26/2022) [facility] of Past illness Narrative* Problem Noted Date Resolved Date Nuclear senile cataract of left eye 11/15/2022 11/15/2022 Combined 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 06/25/2022 06/25/2022 Photopsia 06/25/2022 06/25/2022 documented as of this encounter (statuses as of 12/02/2022) [address]16-[address]23 History of Past illness Narrative* Problem Noted Date Resolved Date Nuclear senile cataract of left eye 11/15/2022 11/15/2022 Combined 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 06/25/2022 06/25/2022 Photopsia 06/25/2022 06/25/2022 documented as of this encounter (statuses as of 12/05/2022) [facility] of Past illness Narrative* Problem Noted Date Resolved Date Nuclear senile cataract of left eye 11/15/2022 11/15/2022 Combined 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 06/25/2022 06/25/2022 Photopsia 06/25/2022 06/25/2022 documented as of this encounter (statuses as of 12/13/2022) [facility] illness Narrative* Problem [...] of this encounter (statuses as of 01/30/2023) [address]16-[address]23 History of Past illness Narrative* Problem [...] of this encounter (statuses as of 02/21/2023) [facility] illness Narrative* Problem [...] of this encounter (statuses as of 04/16/2023) [facility] illness Narrative* Problem [...] of this encounter (statuses as of 04/30/2023) [facility] illness Narrative* Problem [...] of this encounter (statuses as of 05/03/2023) [facility] illness Narrative* Problem [...] of this encounter (statuses as of 05/08/2023) [facility] Narrative* Problem [...] of this encounter (statuses as of 05/23/2023) [facility] Past illness Narrative* Problem [...] of this encounter (statuses as of 05/28/2023) [facility] Narrative* Problem [...] of this encounter (statuses as of 06/25/2023) [facility] illness Narrative* Problem [...] of this encounter (statuses as of 07/24/2023) [facility] illness Narrative* Problem [...] of this encounter (statuses as of 09/02/2023) [facility] Narrative* Problem [...] of this encounter (statuses as of 10/04/2023) [facility] illness Narrative* Problem [...] of this encounter (statuses as of 10/08/2023) [facility] Narrative* Problem [...] of this encounter (statuses as of 10/11/2023) [facility] Narrative* Problem [...] of this encounter (statuses as of 10/15/2023) [facility] illness Narrative* Problem [...] of this encounter (statuses as of 10/25/2023) [facility] Past illness Narrative* Problem [...] of this encounter (statuses as of 11/13/2023) [facility] Narrative* Problem [...] of this encounter (statuses as of 11/18/2023) [facility] Narrative* Problem [...] of this encounter (statuses as of 05/22/2023) [facility] Miscellaneous Notes* Telephone Encounter - Mauricio Guzmanshannonneema - 11/13/2022 3:36 PM EDT Called and informed patient to arrive at [address] [place] [address] at 10:45 am for 11/15/22 surgerywith Cynthia Ramos MD. Also reminded patient to refrain from eating or drinking for 8 hours prior to arrival for surgery, and to begin eyedrops in the left eye on 11/13/22. Patient states understanding and is agreeable. documented in this encounterSt. Elizabeth Hospital03-06-2023 Miscellaneous Notes* Telephone Encounter - Chana Mao Ma - 11/05/2022 11:19 AM EST I called and spoke with patient. She will picking belt operator more hibiclens. Packet left at Ortho front desk assistant. * Telephone Encounter - Natasha Jurado LPN - 11/05/2022 10:28 AM EST Patient called. Verified name and date of . Patient states she has surgery scheduled Saturdayand misplaced the packet of hand power cleaner operator needed for the day of surgery. Can patient picking belt operator anotherpacket? Natasha Jurado LPN documented in this encounterSt. Elizabeth Hospital03-03-2023 Miscellaneous Notes* Telephone Encounter - Chana [...] phone call back Please advise patient at [phone]. Thank you Mary Cochran LPN documented in this encounterSt. Elizabeth Hospital03-01-2023 NoteHNO ID: [id number] Author: Michelle Perez, OT/L Service: ? Author [...] Planned: 6 Planned Treatment Interventions: Therapeutic exercise (27395), Self-usp management (49597), Patient/Family/Caregiver Education, Functional training, Community / Work [...] COMPLETED. Skilled Intervention: Patient education as noted. Self-Halfway Management: 1: COOKING: provided her with black [...] procedure. She is pursuing financial assistance from "[employer]" [place] and has the letter with equipment recommendations [...] to her. 6: TO INCREASE PARTICIPATION WITH YARSANISM SERVICES:- trialed the [employer] "MAX TV GLASSES" and was able to pick out signs, traffic, people outside when trialing same. Reviewed cleaning, and care instructions for taking care of them. She is wanting to borrow these for watching tv, seeing screens at her pentecostal to increase active participation with same. She id understanding instructions and accurately adjusted the focal distance with the lenses after practicing with same. 7: PROCURING OPTICAL AIDS/DEVICES: as id. above, did review her paperwork and recommendations made: *contact [facility] services in [facility] to verify need of needing two written estimates;*if she does require two estimates then she was provided with another agency to assist w/ selling the recommended devices ("MAGNIFIERS AND MORE") and (more content not included)...[facility]03-01-2023 History of Present illness Narrative * [...] Planned: 6 Planned Treatment Interventions: Therapeutic exercise (62063), Self-usp management (65955), Patient/Family/Caregiver Education, Functional training, Community / Work [...] COMPLETED. Skilled Intervention: Patient education as noted. Self-Halfway Management: 1: COOKING: provided her with black [...] procedure. She is pursuing financial assistance from "[employer]" [place] and has the letter with equipment recommendations [...] to her. 6: TO INCREASE PARTICIPATION WITH YARSANISM SERVICES:- trialed the [employer] "MAX TV GLASSES" and wasable to pick out signs, traffic, people outside when trialing same. Reviewed cleaning, and care instructions for taking care of them. She is wanting to borrow these for watching tv, seeing screens ather [employer]ecostal to increase active participation with same. She id understanding instructions and accurately adjusted the focal distance with the lenses after practicing with same. 7: PROCURING OPTICAL AIDS/DEVICES: as id. above, did review her paperwork and recommendations made:*contact [facility] services in [facility] to verify need of needing two [...] further. She did trial this and did eb. being at a modified indep. level and [...] Planned: 6 Planned Treatment Interventions: Therapeutic exercise (13496), Self-usp management (25246), Patient/Family/Caregiver Education, Functional training, Community / Work [...] 77 Michelle Perez OT/L documented in this encounterSt. Elizabeth Hospital02-24-2023 Miscellaneous Notes* Telephone Encounter - Viviana Cochran - 10/26/2022 9:40 AM EST Patient left message in surgery scheduling to reschedule 10/29/22 IOL measurements (ascan). Called patient and offered 11/08/22 at 8:30 am. Patient declines due to has hand surgery the day before. States she will arrange transportation with a family member (called [place] too late to set up through them). Will keep 10/29/22 as scheduled. documented in this encounterSt. Elizabeth Hospital02-21-2023 History of Present illness Narrative* Mel [...] 23, 2022 4:42 PM documented in this encounterSt. Elizabeth Hospital02-15-2023 NoteHNO ID: [id number] Author: Michelle Perez, OT/L Service: ? Author [...] OBJECTIVE MEASURES WITH LEVEL OF FUNCTION: TREATMENT: Self-Halfway Management: 1: FUNCTIONAL COMMUNICATION TRAINING: reading recipe/grocery [...] level with same. She was provided needle sign hanger supervisor, and pre threaded needles with colored thread [...] clips. 6: Threading a needle/sewing: issued needle sign hanger supervisor and self threaded needles and with use of the floor stand JIM ALMANZAR she will practice with same but did not formally have her practice on this date. Provided instruction and education and demonstration and she was familiar w/ the filament needle sign hanger supervisor presented. 7: Eating neatly: on the self [...] if needed in t (more content not included)...[facility] 10-17-2022 History of Present illness Narrative* [...] OBJECTIVE MEASURES WITH LEVEL OF FUNCTION: TREATMENT: Self-Halfway Management: 1: FUNCTIONAL COMMUNICATION TRAINING: reading recipe/grocery [...] level with same. She was provided needle sign hanger supervisor, and pre threaded needles with colored thread [...] clips. 6: Threading a needle/sewing: issued needle sign hanger supervisor and self threaded needles and with use of the floor stand JIM LITE she will practice with same but did not formally have her practice on this date. Provided instruction and education and demonstration and she was familiar w/ the filament needle sign hanger supervisor presented. 7: Eating neatly: on the self [...] CLINIC AND TO PRACTICE WITH SAME (HER PRODUCT FINISHER WILL CARRY THIS IN FOR HER D/T INCREASED WEIGHT IN ORDER TO ENSURE HER SAFETY) AND WILL CONT. TO BORROW THE LIGHT EMILIANO FIT OVER FILTERS. WAS ISSUED ADDITIONAL BOLD LINE PAPER TABLETS, SOCK CLIPS, NEEDLE FARMWORKER DAIRY, SELF THREADED NEEDLES AND A LED FLASHLIGHT. [...] 70 Michelle Perez OT/L documented in this encounterSt. [facility] Hospital02-[facility] History of Present illness Narrative* Ifeoma [...] EXTRACAP,INSERT LENS Right 06/25/2022 S BALLOON,[place] ABLATION [id number] FAMILY HISTORY Problem Relation Age of Onset Heart Father Age 61 Heart Maternal Grandfather Cancer Paternal Grandmother Breast Cancer Maternal Aunt 55 ovarian cancer Heart Son [place] Ovarian cancer Maternal Grandmother Glaucoma No Family [...] remaining Ifeoma Davis MD documented in this encounterSt. Elizabeth Hospital02-07-2023 History of Present illness Narrative* Brunilda Torres, RT(R) - 10/09/2022 12:50 PM EST [...] 09, 2022 12:50 PM documented in this encounterSt. Elizabeth Hospital02-02-2023 Miscellaneous Notes* Telephone Encounter - Clint Brennan RN - 10/04/2022 8:15 AM EST Patient reports she is picking up the Rx today. * Telephone Encounter - Ifeoma Davis MD - 10/03/2022 7:58 PM EST Called [facility] for the patient Regards, Ifeoma Davis MD * Telephone Encounter - Allie Yoonrichelle DAVE - 10/02/2022 10:26 AM EST Patient calling cancelled her appt today for her physical since she is sick, she felt to weak to come in. Patient said she has sinus infection, headache, congestion one side of her nose, using salinenasal spray, scratchy throat, post nasal drainage, yellow secretions when she blows. Patient said she can not drive and can have friend picking belt operator rx. Patient is asking for [facility] rx to be sent to [facility] please. Please advise documented in this encounterSt. Elizabeth Hospital01-31-2023 Miscellaneous Notes* Telephone Encounter - Chana Mao Ma - 10/02/2022 8:44 AM EST Surgery has been scheduled as requested. * Telephone Encounter - Chana Mao Ma - 10/01/2022 4:00 PM EST Surgical request completed for right ring and left middle trigger finger releases at [facility] on 11/02/2022. Post op appointments have been scheduled and mailed to patient. documented in this encounterSt. Elizabeth Hospital01-30-2023 History of Present illness Narrative* Massimo Roberts MD - 10/01/2022 2:19 PM EST Massimo Roberts MD Department of Orthopaedics Orthopaedics [address] [facility] [address] Dept: [phone] Dept October 01, 2022 CHIEF COMPLAINT: Established [...] EXTRACAP,INSERT LENS Right 06/25/2022 S BALLOON,[place] ABLATION [id number] Medications: Current Outpatient Medications Medication Sig mometasone [...] anxiety) Massimo Roberts MD documented in this encounterSt. Elizabeth Hospital01-30-2023 History of Present illness Narrative* Laura [...] 01, 2022 2:16 PM documented in this encounterSt. Elizabeth Hospital01-27-2023 Miscellaneous Notes* Letter - Mammography Coordinator - 09/28/2022 3:14 PM EST October 01, 2022 PID: [id number] Allie Lynn [address] [place] [id number] Dear Ms. Lynn, Your recent breast imaging exam on 09/27/2022 showed a possible finding that requires additional imaging studies for a complete evaluation. Most such findings are probably benign (not cancer). If you have a healthcare provider who ordered/prescribed your screening mammogram: Please call [phone] or [phone]: [phone] to schedule an appointment for your additional [...] and reports are [facility] as part of your permanent medical record, and are available for your continuing care. Thank you for allowing us to help in meeting your health care needs. Sincerely, Dr. Osei Interpreting Radiologist [facility] (Additional imaging) documented in this encounterSt. Elizabeth Hospital01-26-2023 History of Present illness Narrative* Kimberley De Los Santos, Mammo Tech - 09/27/2022 1:10 PM EST [...] IV DATA: Not applicable SIGNED BY: Chacha CarltonGenY Medium Jared September 27, 2022 1:05 PM documented in this encounterSt. Elizabeth Hospital01-24-2023 History of Present illness Narrative* Cynthia [...] patient was offered a [facility]. The surgeon/proceduralist and patient have [...] management of this patient's care with the Resident/Fellow/Woods Boss, if applicable. I also have reviewed and [...] management of this patient's care with the Resident/Fellow/Woods Boss, if applicable. I also have reviewed and agree with the assessment and plan as stated above and agree with all of its relevant components. Cynthia Ramos MD September 25, 2022 3:18 PM documented in this encounterSt. Elizabeth Hospital01-18-2023 NoteHNO ID: [id number] Author: Michelle Perez, OT/L Service: ? Author [...] Planned: 6 Planned Treatment Interventions: Therapeutic exercise (90525);Self-usp management (02295);Patient/Family/Caregiver Education;Functional training;Community / Work Reintegration PLAN FOR [...] Treatment: (was seen by low vision referring bell neck hammerer, Dr. Mason recently. 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) Recreation / Current Exercise: family, watching [employer] cars, volunteering, pentecostal Home Environment Patient Lives With: (alone but [...] to pay bills onl (more content not included)...[facility]01-18-2023 History of Present illness Narrative* Michelle Anders Perez, OT/L - 09/19/2022 12:33 PM EST [...] Planned: 6 Planned Treatment Interventions: Therapeutic exercise (26259);Self-usp management (65232);Patient/Family/Caregiver Education;Functional training;Community / Work Reintegration PLAN FOR [...] Treatment: (was seen by low vision referring bell neck hammerer, Dr. Mason recently. 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 Patient is waiting for LEFT eye cataract extraction and currently is not able to wear corrective glasses. Patient id. Losing her prescription sunglasses and only has wrap around dark saunders filters. Pt. Is applying for financial resources for recommended optical aids/devices from her local "[employer] in [facility] but needs prices from two providers and was provided contact information from"[employer]" to assist with devices that referring low vision bell neck hammerer (Dr. Mason) provided to her at time of her assessment. PSYCHOSOCIAL ASSESSMENT: Alert & Oriented X 4. Affect: appropriate, reasonably positive mood , and hyper verbal/tangential. Memory: no gross deficits observed. Concentration: WFL. Language: verbal and reading w/ appropriate use of adaptive equipment. Fund of Knowledge: High Patient Reports her: Motivation is High. Activity level is High. [place] for ADL is: Average. Life satisfaction is: [...] Education/Teach Back: States/Identifies;Return Demonstration TREATMENT: Evaluation Evaluation Self-Halfway Management: 1: GROOMING: she was able to [...] 6: COMMUNITY SUPPORT/RESOURCES: provided her with [facility] resources for support ([facility] [employer], AND [employer]) and she is already set up with [...] Total Treatment Time Minutes (timed/untimed): 75 Michelle Perez, OT/L documented in this encounterSt. Elizabeth Hospital01-18-2023 Miscellaneous Notes* Telephone Encounter - Barbie Alicea Pss - 09/19/2022 9:50 AM EST Per Ilsa at Occupational Therapy she does not help with white tsai/mobile training. She states shesent you a message. She states she will call patient and explain this to her and see if she still wants to come in for her appointment today. documented in this encounterSt. Elizabeth Hospital12-15-2022 History of Present illness Narrative* Wolfemily Mason, OD - 08/16/2022 1:45 PM EST [...] as needed LV exam documented in this encounterSt. Elizabeth Hospital12-13-2022 Miscellaneous Notes* Telephone Encounter - Starla Mckeon LPN - 08/14/2022 9:23 AM EST Spoke with pt and information listed below given. Pt verbalizes understanding. Starla Mckeon LPN * Telephone Encounter - David Anna APRN.CNP - 08/13/2022 1:17 PM EST Please let patient know I have sent in a prescription for nasonex/mometasone nasal spray. Hopefullythis will be more affordable for her. Thank you aDvid Anna APRN.CNP * Telephone Encounter - Starla Mckeon LPN [...] can reorder this. Thank you David Anna APRN.WEB CONTENT SPECIALIST * Telephone Encounter - Lea Roberts Pss [...] advise. Lea Roberts Pss documented in this encounterSt. Elizabeth Hospital11-22-2022 History of Present illness Narrative* Jonathon [...] components. Jonathon Eugene MD documented in this encounterSt. Elizabeth Hospital11-22-2022 Miscellaneous Notes* Telephone Encounter - Aleksandra [...] calling: self Call patient at: at home [phone] (home) [phone] (cell) Was an appointment scheduled: No Closing statement: Results or non-symptom based questions: Thank you [facility], your call will be returned within the next business day. Melly Prado Pss documented in this encounterSt. Elizabeth Hospital11-21-2022 Miscellaneous Notes* Telephone Encounter - Celeste [...] notify patient. Melly Adams documented in this encounterSt. Elizabeth Hospital11-21-2022 Miscellaneous Notes* Telephone Encounter - Vanessa [...] patient. Melly Prado Pss documented in this encounterSt. Elizabeth Hospital11-03-2022 Miscellaneous Notes* Telephone Encounter - Dara Valdez RN - 07/05/2022 8:41 AM EDT Called patient and notified that provider sent medication to [facility]. Patient voiced understanding. Dara Valdez [...] advise, Dara Valdez RN documented in this encounterSt. Elizabeth Hospital11-01-2022 Instructions* Patient Instructions* Jonathon Eugene MD - 07/03/2022 1:14 PM EDT -prednisolone (white or pink cap) four times a day x 1 week, then three times a day for 1 week, then twice a day for 1 week, then once a day for 1 week, then stop -vigamox (mora cap) four times a day for 1 week, then stop documented in this encounterSt. Elizabeth Hospital11-01-2022 History of Present illness Narrative* Jonathon [...] components. Jonathon Eugene MD documented in this encounterSt. Elizabeth Hospital10-28-2022 History of Present illness Narrative* Valentine [...] Dr. Eugene in 4 days Valentine Torres, GIANNI June 29, 2022 12:01 PM documented in this encounterSt. Elizabeth Hospital10-28-2022 Miscellaneous Notes* Telephone Encounter - Tori [...] Please review and advise. documented in this encounterSt. Elizabeth Hospital10-28-2022 Miscellaneous Notes* Telephone Encounter - Janet Rivero RN - 06/29/2022 8:59 AM EDT Patient has been scheduled for today 06/29/2022 at the [place] office with Dr. Torres. Janet Rivero RN June 29, 2022 8:59 AM * Telephone Encounter - Janet Rivero RN - 06/29/2022 7:35 AM EDT Received message via Secure Chat from Dr. Eugene that due to patient living in [place] that she could see Dr. Torres for a dilated exam as well. If patient wants seen by Dr. Eugene he is at [facility]. Janet Rivero RN June 29, 2022 7:36 AM * Telephone Encounter - Janet Rivero RN - 06/28/2022 6:07 PM EDT Discussed patient with Dr. Eugene. He advised for patient to be seen on 06/29/[address] Ramos. Routed to [facility] staff to schedule. Janet Rivero RN [...] can do to help. documented in this encounterSt. Elizabeth Hospital10-25-2022 Instructions* Patient Instructions* Jonathon Eugene MD - 06/26/2022 1:40 PM EDT -prednisolone every two hours right eye -vigamox four times a day right eye -geldrops left eye -ointment at bedtime left eye documented in this encounterSt. Elizabeth Hospital10-25-2022 History of Present illness Narrative* Jonathon [...] components. Jonathon Eugene MD documented in this encounterSt. Elizabeth Hospital10-24-2022 History of Past illness Narrative* Problem Noted Date Resolved Date Combined 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 06/25/2022 06/25/2022 Photopsia 06/25/2022 06/25/2022 documented as of this encounter (statuses as of 06/25/2022) [facility] of Past illness Narrative* Problem Noted Date Resolved Date Combined 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 06/25/2022 06/25/2022 Photopsia 06/25/2022 06/25/2022 documented as of this encounter (statuses as of 06/26/2022) [facility] Narrative* Problem Noted Date Resolved Date Combined 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 06/25/2022 06/25/2022 Photopsia 06/25/2022 06/25/2022 documented as of this encounter (statuses as of 06/26/2022) [facility] Narrative* Problem Noted Date Resolved Date Combined 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 06/25/2022 06/25/2022 Photopsia 06/25/2022 06/25/2022 documented as of this encounter (statuses as of 06/29/2022) [facility] Narrative* Problem Noted Date Resolved Date Combined 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 06/25/2022 06/25/2022 Photopsia 06/25/2022 06/25/2022 documented as of this encounter (statuses as of 06/29/2022) [facility] Narrative* Problem Noted Date Resolved Date Combined forms of age-related cataract of right eye 06/25/2022 06/25/2022 Photopsia 06/25/2022 06/25/2022 documented as of this encounter (statuses as of 06/29/2022) [facility] Narrative* Problem Noted Date Resolved Date Combined forms of age-related cataract of right eye 06/25/2022 06/25/2022 Photopsia 06/25/2022 06/25/2022 documented as of this encounter (statuses as of 07/03/2022) [facility] Narrative* Problem Noted Date Resolved Date Combined forms of age-related cataract of right eye 06/25/2022 06/25/2022 Photopsia 06/25/2022 06/25/2022 documented as of this encounter (statuses as of 07/05/2022) [facility] Narrative* Problem Noted Date Resolved Date Combined forms of age-related cataract of right eye 06/25/2022 06/25/2022 Photopsia 06/25/2022 06/25/2022 documented as of this encounter (statuses as of 07/23/2022) [facility] Narrative* Problem Noted Date Resolved Date Combined forms of age-related cataract of right eye 06/25/2022 06/25/2022 Photopsia 06/25/2022 06/25/2022 documented as of this encounter (statuses as of 07/24/2022) [facility] Narrative* Problem Noted Date Resolved Date Combined forms of age-related cataract of right eye 06/25/2022 06/25/2022 Photopsia 06/25/2022 06/25/2022 documented as of this encounter (statuses as of 07/24/2022) [facility] Narrative* Problem Noted Date Resolved Date Combined forms of age-related cataract of right eye 06/25/2022 06/25/2022 Photopsia 06/25/2022 06/25/2022 documented as of this encounter (statuses as of 07/25/2022) [facility] Narrative* Problem Noted Date Resolved Date Combined forms of age-related cataract of right eye 06/25/2022 06/25/2022 Photopsia 06/25/2022 06/25/2022 documented as of this encounter (statuses as of 08/14/2022) [facility] Narrative* Problem Noted Date Resolved Date Combined forms of age-related cataract of right eye 06/25/2022 06/25/2022 Photopsia 06/25/2022 06/25/2022 documented as of this encounter (statuses as of 08/16/2022) [facility] Narrative* Problem Noted Date Resolved Date Combined forms of age-related cataract of right eye 06/25/2022 06/25/2022 Photopsia 06/25/2022 06/25/2022 documented as of this encounter (statuses as of 09/20/2022) [facility] Narrative* Problem Noted Date Resolved Date Combined forms of age-related cataract of right eye 06/25/2022 06/25/2022 Photopsia 06/25/2022 06/25/2022 documented as of this encounter (statuses as of 09/26/2022) [facility] Narrative* Problem Noted Date Resolved Date Combined forms of age-related cataract of right eye 06/25/2022 06/25/2022 Photopsia 06/25/2022 06/25/2022 documented as of this encounter (statuses as of 09/27/2022) [facility] Narrative* Problem Noted Date Resolved Date Combined forms of age-related cataract of right eye 06/25/2022 06/25/2022 Photopsia 06/25/2022 06/25/2022 documented as of this encounter (statuses as of 09/28/2022) [facility] Narrative* Problem Noted Date Resolved Date Combined forms of age-related cataract of right eye 06/25/2022 06/25/2022 Photopsia 06/25/2022 06/25/2022 documented as of this encounter (statuses as of 10/01/2022) [facility] Narrative* Problem Noted Date Resolved Date Combined forms of age-related cataract of right eye 06/25/2022 06/25/2022 Photopsia 06/25/2022 06/25/2022 documented as of this encounter (statuses as of 10/02/2022) [facility] Narrative* Problem Noted Date Resolved Date Combined forms of age-related cataract of right eye 06/25/2022 06/25/2022 Photopsia 06/25/2022 06/25/2022 documented as of this encounter (statuses as of 10/02/2022) [facility] Narrative* Problem Noted Date Resolved Date Combined forms of age-related cataract of right eye 06/25/2022 06/25/2022 Photopsia 06/25/2022 06/25/2022 documented as of this encounter (statuses as of 10/04/2022) [facility] Narrative* Problem Noted Date Resolved Date Combined forms of age-related cataract of right eye 06/25/2022 06/25/2022 Photopsia 06/25/2022 06/25/2022 documented as of this encounter (statuses as of 10/09/2022) [facility] Narrative* Problem Noted Date Resolved Date Combined forms of age-related cataract of right eye 06/25/2022 06/25/2022 Photopsia 06/25/2022 06/25/2022 documented as of this encounter (statuses as of 10/11/2022) [facility] Narrative* Problem Noted Date Resolved Date Combined forms of age-related cataract of right eye 06/25/2022 06/25/2022 Photopsia 06/25/2022 06/25/2022 documented as of this encounter (statuses as of 10/17/2022) [facility] Narr[facility]* Problem Noted Date Resolved Date Combined forms of age-related cataract of right eye 06/25/2022 06/25/2022 Photopsia 06/25/2022 06/25/2022 documented as of this encounter (statuses as of 10/17/2022) [facility] Narr[facility]* Problem Noted Date Resolved Date Combined forms of age-related cataract of right eye 06/25/2022 06/25/2022 Photopsia 06/25/2022 06/25/2022 documented as of this encounter (statuses as of 10/25/2022) [facility] N[facility]* Problem Noted Date Resolved Date Combined forms of age-related cataract of right eye 06/25/2022 06/25/2022 Photopsia 06/25/2022 06/25/2022 documented as of this encounter (statuses as of 10/26/2022) [facility] N[facility]* Problem Noted Date Resolved Date Combined forms of age-related cataract of right eye 06/25/2022 06/25/2022 Photopsia 06/25/2022 06/25/2022 documented as of this encounter (statuses as of 10/29/2022) [facility] Narr[facility]* Problem Noted Date Resolved Date Combined forms of age-related cataract of right eye 06/25/2022 06/25/2022 Photopsia 06/25/2022 06/25/2022 documented as of this encounter (statuses as of 10/31/2022) [facility] Narrative* Problem Noted Date Resolved Date Combined forms of age-related cataract of right eye 06/25/2022 06/25/2022 Photopsia 06/25/2022 06/25/2022 documented as of this encounter (statuses as of 11/02/2022) [facility] Narrative* Problem Noted Date Resolved Date Combined forms of age-related cataract of right eye 06/25/2022 06/25/2022 Photopsia 06/25/2022 06/25/2022 documented as of this encounter (statuses as of 11/05/2022) [facility] Narrative* Problem Noted Date Resolved Date Combined forms of age-related cataract of right eye 06/25/2022 06/25/2022 Photopsia 06/25/2022 06/25/2022 documented as of this encounter (statuses as of 11/13/2022) 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 NoteHNO ID: [id number] Author: Allie Cardoso RN Service: ? Author Type: Registered Nurse Type: Nursing Progress Note Filed: 06/25/2022 9:59 AM Note Text: Spoke with Mallika THEATRE ARTS PROFESSOR that patient has questions for Dr. Eugene prior to procedure.[id number] Dis[facility]* Discharge Instr - Other [...] 38.3 C Trouble breathing Contact Jonathon Eugene [phone] and leave voicemail -emergency numbers: [phone] or ext [phone] and ask for the eye doctor credit verification clerk. documented in this encounterSt. Elizabeth Hospital10-24-2022 History and physical note * Jonathon [...] 2022 TIME: 10:02 AM documented in this [facility]10-24-2022 Nurse Note* Allie Cardoso RN - 06/25/2022 9:58 AM EDT Spoke with Mallika THEATRE ARTS PROFESSOR that patient has questions for Dr. Eugene prior to procedure. documented in this [facility]10-24-2022 Surgical operation note* Operative Report - Jonathon Eugene MD - 06/25/2022 9:58 AM EDT OPERATIVE/PROCEDURE REPORT OPHTHAMOLOGY LOG ID: [id number] SURGERY/PROCEDURE DATE: 06/25/2022 INCISION/PROCEDURE START TIME: 10:13 AM INCISION CLOSE/PROCEDURE END TIME: 11:27 AM SURGEON(S)/PROCEDURALIST(S) AND GREENSKEEPER(S): Surgeon(s) and Role: * Jonathon Eugene MD [...] Implant Name Type Inv. Item Serial No. Automatic Corn Grinder Operator Lot No. LRB No. Used Action Model No. LENS ACRYSOF ULTRASERT +14.5 DIOPTER ACRYLIC IOL 1 PIECE FOLDABLE UV BLUE - [id number] Intraocular Lens LENS ACRYSOF ULTRASERT +14.5 DIOPTER ACRYLIC IOL 1 PIECE FOLDABLE UV BLUE [id number] [employer] Right 1 Implanted [id number] Ocular Co-Morbidities: Yes Intra-operative Complications None I/primary surgeon/proceduralist performed the entire procedure. SIGNATURE: Jonathon Eugene MD PATIENT NAME: Allie Lynn DATE: June 25, 2022 TIME: 11:31 AM PAGER/CONTACT #: [phone] documented in this encounterSt. [facility]10[facility]22 Miscellaneous Notes* Telephone Encounter - Janet Rivero RN - 06/22/2022 10:58 AM EDT Pended pre-operative drop prescriptions to Dr. Eugene for approval. Janet Rivero RN June 22, 2022 10:59 AM documented in this encounterSt. [facility] Hospital10-21-2022 Miscellaneous Notes* Telephone Encounter - Meche Salvador - 06/22/2022 9:24 AM EDT Patient's pharmacy has no record of receiving the pre surgical prescriptions. Her surgery is 06-25-22, so she needs to start the drops tomorrow. Please send drops to [facility] Daylin Alberto. [place], [place] documented in this encounterSt. Elizabeth Hospital10-19-2022 History of Present illness Narrative* Charlene Grossman MD - 06/20/2022 5:16 PM EDT Images from the original note were not included. Charlene Grossman MD Interventional Cardiology [address] [place] [id number] Chief Complaint Patient presents with: CARD [...] (RIGHT EYE) Right 10/26/2021 S [place] [id number] FAMILY HISTORY Problem Relation Age of Onset Heart Father Age 61 Heart Maternal Grandfather Cancer Paternal Grandmother Breast Cancer Maternal Aunt 55 ovarian cancer Heart Son [place] Ovarian cancer Maternal Grandmother Glaucoma No Family [...] to correct any errors. documented in this encounterSt. Elizabeth Hospital10-19-2022 Nurse Note* Alana Jiang MA - 06/20/2022 12:46 PM EDT Patient c/o bradycardia, palpitations, SOB, chest tenderness documented in this encounterSt. Elizabeth Hospital10-19-2022 Miscellaneous Notes* Telephone Encounter - Mauricio Bahena - 06/20/2022 9:32 AM EDT Attempted to contact patient to inform to arrive at [address] [place] [address] at 09:05 am for 06/25/22 surgery with Jonathon Eugene MD, to refrain from eating or drinking for 8 hours prior to arrival for surgery, and to begin the eyedrops in the right eye on 06/23/22. Left message on machine to callwith any questions or concerns. documented in this [facility]09-09-2022 Miscellaneous Notes* Telephone Encounter [...] Cardona LPN * Telephone Encounter - [facility] - 05/11/2022 10:15 AM EDT Patient has [...] No need to notify patient. [facility] documented in this encounterSt. Elizabeth Hospital09-09-2022 Miscellaneous Notes* Telephone Encounter - Anshul lOiver Ma - 05/11/2022 10:29 AM EDT NOMI: 12/25/2021 Last refill: 09/18/2021 QTY: 60 Refills: 2 * Telephone Encounter - [facility]ra [facility] - 05/11/2022 10:19 AM EDT Patient is requesting medication, Gabapentin 100 mg take one daily at bedtime. She will need these for her upcoming eye procedure. This medication is not on the medication list. Please send to her local pharmacy [facility]. Any questions , please call patient [phone] documented in this encounterSt. Elizabeth Hospital09-01-2022 History of Present illness Narrative* Viviana Powell Ma - 05/03/2022 4:34 PM EDT EMG/NCV order faxed to [facility] scheduling. Referral done in computer. * Massimo Roberts MD - 05/03/2022 1:30 PM EDT Massimo Roberts MD Department of Orthopaedics Orthopaedics [address] [facility] [address] Dept: [phone] Dept May 03, 2022 CHIEF COMPLAINT: New [...] (RIGHT EYE) Right 10/26/2021 S [place] [id number] Family History: FAMILY HISTORY Problem Relation Age of Onset Heart Father Age 61 Heart Maternal Grandfather Cancer Paternal Grandmother Breast Cancer Maternal Aunt 55 ovarian cancer Heart Son [place] Ovarian cancer Maternal Grandmother Glaucoma No Family [...] electronic medical record. Massimo Roberts [address] [facility] [address] Ifeoma Davis MD [address] [facility] [address] Massimo Roberts MD documented in this encounterSt. Elizabeth Hospital08-24-2022 Miscellaneous Notes* Telephone Encounter - Zainab Leyva - 04/25/2022 10:42 AM EDT INTRAOCULAR LENS ORDER ATTN: [facility] PATIENTS NAME: Allie Lynn SURGERY DATE: 06/25/2022 EYE: OD SURGEON: Jonathon Eugene MD LENS: Acry[employer]of IQ ASSEMBLER KNIFE: Leonardo MODEL: [id number] POWER: + 14.5 ADDITIONAL NOTES: documented in this encounterSt. Elizabeth Hospital08-11-2022 History of Present illness Narrative* Jonathon [...] components. Jonathon Eugene MD documented in this encounterSt. Elizabeth Hospital08-02-2022 Instructions* Patient Instructions* Jonathon Eugene MD - 04/03/2022 12:34 PM EDT Images from the original note were not included. documented in this encounterSt. Elizabeth Hospital08-02-2022 History of Present illness Narrative* Jonathon [...] components. Jonathon Eugene MD documented in this encounterSt. Elizabeth Hospital07-26-2022 History of Present illness Narrative* Cynthia [...] (H52.7) Refractive error Comment: Myopia, patient has bell neck hammerer Plan: Wait on new specs for now RTC 3 months VaTa or sooner if needed post-op I have confirmed and edited as necessary the relevant ophthalmic history, ROS, and the neuro exam findings as obtained by others. I have seen and examined this patient. I have discussed the case and the management of this patient's care with the Resident/Fellow/Woods Boss, if applicable. I also have reviewed and agree with the assessment and plan as stated above and agree with all of its relevant components. Cynthia Ramos MD April 03, 2022 5:22 PM documented in this encounterSt. Elizabeth Hospital07-13-2022 History of Present illness Narrative* Jonathon [...] components. Jonathon Eugene MD documented in this encounterSt. Elizabeth Hospital07-01-2022 Miscellaneous Notes* Telephone Encounter - Janet [...] Dr. Eugene. Please advise. documented in this encounterSt. Elizabeth Hospital06-28-2022 History of Present illness Narrative* Jonathon [...] components. Jonathon Eugene MD documented in this encounterSt. Elizabeth Hospital06-11-2022 Miscellaneous Notes* Telephone Encounter - Aleksandra Min LPN - 02/10/2022 11:58 AM EDT Patient notified on mychart. * Telephone Encounter - Alise Dejesus APRN.CNP - 02/10/2022 11:20 AM EDT No growth for urine culture. If symptoms persist then follow up with PCP Please notify thank you documented in this encounterSt. Elizabeth Hospital06-10-2022 Miscellaneous Notes* Telephone Encounter - Mary Goodwin Pss - 02/09/2022 10:05 AM EDT Pharmacy verified in [facility] Patient has been identified by name [...] advise. Mary Goodwin Pss documented in this encounterSt. Elizabeth Hospital06-09-2022 Miscellaneous Notes* Telephone Encounter - Janet [...] is not covered by most insurance companies. [employer] offers pricing of over $200.00 for all Pharmacies. [employer] does NOT cover it. The ornamental metal erector apprentice of [employer] recommends using an on-line Pharmacy, [facility]. They DO NOT submit to [...] that she can use? documented in this encounterSt. Elizabeth Hospital05-13-2022 Miscellaneous Notes* Telephone Encounter - Mary Tamez RN - 01/12/2022 10:46 AM EDT Patient last seen for annual exam on 12/04/21. Needs a new RX for Prempro. Out of refills. RX pending. Pending Prescriptions Disp Refills CONJ ESTROGEN-MEDROXYPROGESTERONE 0.45 MG-1.5 MG TABLET 84 tablet 2 Sig: Take 1 tablet by mouth once daily. WALTER: No Mary Tamez RN documented in this encounterSt. Elizabeth Hospital04-25-2022 History of Present illness Narrative* Ifeoma [...] (RIGHT EYE) Right 10/26/2021 S [place] [id number] FAMILY HISTORY Problem Relation Age of Onset Heart Father Age 61 Heart Maternal Grandfather Cancer Paternal Grandmother Breast Cancer Maternal Aunt 55 ovarian cancer Heart Son [place] Ovarian cancer Maternal Grandmother Glaucoma No Family [...] IVCON Ifeoma Davis MD documented in this encounterSt. Elizabeth Hospital04-19-2022 History of Present illness Narrative* Cynthia [...] (H52.7) Refractive error Comment: Myopia, patient has bell neck hammerer; happy with new glasses Plan: f/u as [...] management of this patient's care with the Resident/Fellow/Woods Boss, if applicable. I also have reviewed and agree with the assessment and plan as stated above and agree with all of its relevant components. Cynthia Ramos MD December 19, 2021 2:17 PM documented in this encounterSt. Elizabeth Hospital04-11-2022 Miscellaneous Notes* Telephone Encounter - Dara [...] order due to vertigo. documented in this encounterSt. 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 Elizabeth Hospital03-29-2022 History of Present illness Narrative* Cynthia [...] (H52.7) Refractive error Comment: Myopia, patient has bell neck hammerer Plan: f/u as planned RTC f/u as [...] as needed No rubbing eyes Update Mrx (M50.9765) Primary open angle glaucoma (POAG) of both [...] management of this patient's care with the Resident/Fellow/Woods Boss, if applicable. I also have reviewed and agree with the assessment and plan as stated above and agree with all of its relevant components. Cynthia Ramos MD December 03, 2021 3:53 PM documented in this encounterSt. Elizabeth HospitalEvaluation note* Diagnosis Follow-up exam- Primary Unspecified follow-up examination [facility]* Diagnosis Encounter for gynecological examination (general) (routine) without abnormal findings- Primary Encounter for screening mammogram for breast cancer 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* Diagnosis 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 injury Post-traumatic headache, unspecified [facility]* Diagnosis Photopsia- Primary Other visual distortions [...] streaks of choroid [facility] Diagnosis Medication management Encounter for [...] of right eye [facility]* Diagnosis Combined forms of age-related [...] and entoptic phenomena [facility]* Diagnosis Combined forms of age-related cataract of right eye Other and combined forms of senile cataract Photopsia Other visual distortions and entoptic phenomena [facility] Diagnosis Pseudophakia- Primary Lens replaced by other means [facility]* Diagnosis Acute cough- Primary [facility] [...] [facility]* Diagnosis Functional dyspepsia Dyspepsia and other specified disorders of function of stomach Nausea Nausea alone [facility]* Diagnosis Headaches due to old [...] reading disorder, unspecified [facility]* Diagnosis Annual physical exam- Primary Routine general medical examination at a health care facility [facility]* Diagnosis Abnormal mammogram- Primary Abnormal mammogram, unspecified [facility]* Diagnosis Pain in both hands- Primary [facility]* Diagnosis Trigger ring finger of [...] eye, severe stage [facility]* Diagnosis Trigger ring finger of [...] Unspecified follow-up examination [facility]* Diagnosis Trigger ring finger of right hand- Primary Trigger finger (acquired) Trigger middle finger of left hand Trigger finger (acquired) [facility]* Diagnosis Follow-up exam- Primary Unspecified follow-up examination [facility]* Diagnosis Follow-up exam- Primary Unspecified follow-up examination Vitreous prolapse of left eye Vitreous prolapse [facility] this 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* Diagnosis Gastroesophageal reflux disease, unspecified whether esophagitis present- Primary Change in bowel habits Other symptoms involving digestive system [facility]* Diagnosis Legally blind- Primary Legal blindness, as defined in [place] [facility]* Diagnosis Numbness and tingling in right hand- Primary Disturbance of skin sensation [facility]* Diagnosis Trigger finger, unspecified finger, unspecified laterality [facility]* Diagnosis Abnormal mammogram Abnormal mammogram, unspecified [facility]* Diagnosis Pain in both hands [facility]* Diagnosis Abnormal mammogram Abnormal mammogram, unspecified [facility] Diagnosis Encounter for screening mammogram for breast cancer 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* Diagnosis Encounter for screening mammogram for breast cancer [facility]* Diagnosis Trigger finger, unspecified finger, unspecified laterality [facility]* Diagnosis Bacterial sinusitis- Primary Unspecified sinusitis (chronic) [facility]* Diagnosis Onset Date Resolution Status Injury of right rotator cuff acute [facility] Work Phone: Evaluation note* Diagnosis Encounter for gynecological examination (general) (routine) without abnormal findings- Primary Encounter for screening for human papillomavirus (HPV) Special screening examination for human papillomavirus (HPV) Pap smear for cervical cancer screening Screening for malignant neoplasm of the cervix Encounter for screening mammogram for breast cancer [facility]* Diagnosis 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 injury Post-traumatic headache, unspecified 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 Pseudophakia of both eyes Lens replaced by other means Legally blind Legal blindness, as defined in [place] [facility]* Diagnosis Hypertension Unspecified essential hypertension Mixed hyperlipidemia Medication management Encounter for long-term (current) use of other medications documented in this encounter [facility] note* Diagnosis Annual wellness visit- [...] [place] Mixed hyperlipidemia [facility]* Diagnosis Allergic contact dermatitis due to plants, except food- Primary Contact dermatitis and other eczema due to plants (except food) [facility]* Diagnosis Establishing care with new doctor, [...] Post-traumatic headache, unspecified documented in this encounter [facility] note* Diagnosis Establishing care with [...] involving digestive system 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 Trigger finger, unspecified finger, unspecified laterality Mixed hyperlipidemia Primary hypertension Unspecified essential hypertension Swelling of both hands Gastroesophageal reflux disease with esophagitis, unspecified whether hemorrhage documented in this encounter [facility] note* Diagnosis Establishing care with [...] Other screening mammogram documented in this encounter [facility] note* Diagnosis Establishing care with [...] anomaly of skin documented in this encounter [facility] note* Diagnosis Establishing care with [...] unspecified whether hemorrhage [facility] this [facility]* Diagnosis Establishing care with new doctor, [...] COVID-19 virus- Primary documented in this encounter [facility] note* Diagnosis Establishing care with [...] apnea (adult) (pediatric) documented in this encounter [facility] note* Diagnosis Establishing care with [...] anomaly of skin [facility]* Diagnosis Establishing care with new doctor, [...] to menopause- Primary [facility]* Diagnosis Establishing care with new doctor, [...] Other sleep disturbances [facility]* Diagnosis Establishing care with new doctor, [...] Insomnia, unspecified type [facility]* Diagnosis Establishing care with new doctor, [...] unspecified depression type documented in this encounter [facility] note* Diagnosis Establishing care with [...] streaks of choroid documented in this encounter [facility] note* Diagnosis Establishing care with [...] streaks of choroid documented in this encounter [facility] note* Diagnosis Establishing care with [...] for breast cancer [facility]* Diagnosis Establishing care with new doctor, [...] anomaly of skin documented in this encounter [facility] note* Diagnosis Establishing care with [...] site not specified documented in this encounter [facility] note* Diagnosis Establishing care with [...] unspecified Other fatigue documented in this encounter [facility] note* Diagnosis Establishing care with [...] apnea (adult) (pediatric) documented in this encounter [facility] note* Diagnosis Establishing care with [...] Hypokalemia- Primary Hypopotassemia documented in this encounter [facility] note* Diagnosis Establishing care with [...] unspecified type- Primary documented in this encounter [facility] note* Diagnosis Establishing care with [...] apnea (adult) (pediatric) documented in this encounter [facility] note* Diagnosis Establishing care with [...] deficiency Mixed hyperlipidemia documented in this encounter [facility] note* Diagnosis Establishing care with [...] Legally blind Legal blindness, as defined in [facility] Sleep apnea, unspecified type documented in this encounter [facility] note* Diagnosis Establishing care with [...] Unspecified essential hypertension documented in this encounter [facility] note* Diagnosis Establishing care with [...] of left eye documented in this encounter [facility] note* Diagnosis Establishing care with [...] unspecified single disease documented in this encounter [facility] note* Diagnosis Establishing care with [...] unspecified single disease documented in this encounter [facility] note* Diagnosis Establishing care with [...] deficiency Mixed hyperlipidemia [facility]* Diagnosis Establishing care with new doctor, [...] Other specified complications [facility]* Diagnosis Establishing care with new doctor, [...] 126/82 11/18/2023 124/[address] [facility]* Diagnosis Establishing care with new [...] glaucoma surgery- Primary [facility]* Diagnosis Establishing care with new doctor, [...] Insomnia, unspecified type documented in this encounter [facility] note* Diagnosis Establishing care with [...] following other surgery documented in this encounter [facility] note* Diagnosis Establishing care with [...] of unspecified site [facility]* Diagnosis Establishing care with new [...] plants (except food) documented in this encounter [facility] note* Diagnosis Establishing care with [...] indeterminate stage, bilateral [facility]* Diagnosis Establishing care with new doctor, [...] specified erythematous condition documented in this encounter [facility] Discharge instructionsAdditional Instructions Follow-up with your primary care physician. Return back to ED if symptoms change or worsen.[facility] Work Phone: Reason for referral (narrative)* Diagnostic Procedure Only (Routine) - Pending Review Specialty Diagnoses / Procedures Referred By Shiraz johnson Referred To Contact BR IMAGING Diagnoses Encounter for screening mammogram for breast cancer Procedures GENOVEVA SCREENING SCREENING MAMMOGRAPHY BI 2-VIEW BREAST INC Destiney Proctor APRN.CNP [address] [place] [address] Br Imaging [address] [place] [address] Referral ID Status Reason Start Date Expiration Date Visits Requested Visits Authorized [id number] Pending Review Auto-Generat ed Referral 12/04/2021 01/03/2023 1 1 [facility] for referral (narrative)* Outpatient Procedure (Routine) - Pending Review Specialty Diagnoses / Procedures Referred By Contac t Referred To Contact [facility] Diagnoses Pain in both hands Procedures EMG(NEURO/NI) NERVE CONDUCTION STUDIES 9-10 STUDIES Massimo Roberts MD [address] [place] [address] Neurological [place] [address] [place] [address] Referral ID Status Reason Start Date Expiration Date Visits Requested Visits Authorized [id number] Pending Review Auto-Generat ed Referral 05/03/2022 05/03/2023 1 1 [facility] for referral (narrative)* Outpatient Procedure (Routine) - Pending Review Specialty Diagnoses / Procedures Referred By Contac t Referred To Contact [facility] [place] Diagnoses PXE (pseudoxanthoma elasticum) Procedures ECHO ECHO TTHRC R-T 2D W/WOM-MODE COMPL SPEC&COLR D Ngoc, Charlene Johnson MD [address] [place] [address] [facility] [place] [address] [place] [address] Referral ID Status Reason Start Date Expiration Date Visits Requested Visits Authorized [id number] Pending Review Auto-Generat ed Referral 2 06/20/2023 1 1 [facility] for referral (narrative)* Diagnostic Procedure Only (Routine) - Pending Review Specialty Diagnoses / Procedures Referred By Contac t Referred To Contact [facility] Diagnoses Abnormal mammogram Procedures GENOVEVA DIAGNOSTIC RT DIAGNOSTIC MAMMOGRAPHY COMPUTER-AIDED DETCJ Destiney Cortez, MURTAZA.WEB CONTENT SPECIALIST [address] [place] [address] Br Imaging [address] [place] [address] Referral ID Status Reason Start Date Expiration Date Visits Requested Visits Authorized [id number] Pending Review Auto-Generat ed Referral 09/28/2022 10/28/2023 1 1 * Diagnostic Procedure Only (Routine) - Pending Review Specialty Diagnoses / Procedures Referred By Contac t Referred To Contact [facility] IM[facility] Diagnoses Abnormal mammogram Procedures US BREAST LTD RT US BREAST UNI REAL TIME WITH IMAGE LIMITED Destiney Pendleton APRN.CNP [address] [place] [address] Br Imaging [address] [place] [address] Referral ID Status Reason Start Date Expiration Date Visits Requested Visits Authorized [id number] Pending Review Auto-Generat ed Referral 09/28/2022 10/28/2023 1 1 [facility] for referral (narrative)* Diagnostic Procedure Only (Routine) - Closed Specialty Diagnoses / Procedures Referred By Contac t Referred To Contact XR IMAGING Diagnoses Pain in both hands Procedures XR HAND GENERAL 3V PA/LAT/OBL BILATERAL RADEX HAND MINIMUM 3 VIEWS Massimo Roberts MD [address] [place] [address] Xr Imaging Referral ID Status Reason Start Date Expiration Date V isits Requested Visits Authorized [id number] Closed Auto-Generate d Referral 10/01/2022 10/31/2023 1 1 [facility] for referral (narrative)* Outpatient Procedure (Routine) - Authorized Specialty Diagnoses / Procedures Referred By Contac t Referred To Contact [facility] Diagnoses Change in bowel habits Procedures COLONOSCOPY DIAGNOSTIC COLONOSCOPY FLX DX W/COLLJ SPEC WHEN PFRMD Cande Pozo PA-C [address] [facility] [place] [address] Digestive Disease [place] [address] [place] [address] Referral ID Status Reason Start Date Expiration Date Visits Requested Visits Authorized [id number] Authorized Auto-Generat ed Referral 04/30/2023 04/30/2024 1 1 * Outpatient Procedure (Routine) - Authorized Specialty Diagnoses / Procedures Referred By Shiraz johnson Referred To Contact [facility] Diagnoses Gastroesophageal reflux disease, unspecified whether esophagitis present Procedures EGD DIAGNOSTIC ESOPHAGOGASTRODUODENOSC OPY TRANSORAL DIAGNOSTIC Cande Pozo PA-C [address] [facility] [place] [address] Dig[facility]ive Disease [place] [address] [place] [address] Referral ID Status Reason Start Date Expiration Date Visits Requested Visits Authorized [id number] Authorized Auto-Generat ed Referral 04/30/2023 04/30/2024 1 1 [facility] for referral (narrative)* Outpatient Procedure (Routine) - Pending Review Specialty Diagnoses / Procedures Referred By Shiraz johnson Referred To Contact [facility] Diagnoses Numbness and tingling in right hand Procedures EMG(NEURO/NI) NERVE CONDUCTION STUDIES 9-10 STUDIES Massimo Roberts MD [address] [place] [address] [address] Referral ID Status Reason Start Date Expiration Date Visits Requested Visits Authorized [id number] Pending Review Auto-Generat ed Referral 04/25/2023 04/25/2024 1 1 [facility] for referral (narrative)* Diagnostic Procedure Only (Routine) - Closed Specialty Diagnoses / Procedures Referred By Shiraz johnson Referred To Contact BR IM[facility] Diagnoses Abnormal mammogram Procedures US BREAST LTD RT US BREAST UNI REAL TIME WITH IMAGE LIMITED Destiney Pendleton APRN.WEB CONTENT SPECIALIST [address] [place] [address] Br Imaging [address] [place] [address] Referral ID Status Reason Start Date Expiration Date V isits Requested Visits Authorized [id number] Closed Auto-Generate d Referral 09/28/2022 10/28/2023 1 1 [facility] for referral (narrative)* Diagnostic Procedure Only (Routine) - Closed Specialty Diagnoses / Procedures Referred By Contac t Referred To Contact XR IMAGING Diagnoses Pain in both hands Procedures XR HAND GENERAL 3V PA/LAT/OBL BILATERAL RADEX HAND MINIMUM 3 VIEWS Massimo Roberts MD [address] [place] [address] [place] [address] Referral ID Status Reason Start Date Expiration Date V isits Requested Visits Authorized [id number] Closed Auto-Generate d Referral 10/01/2022 10/31/2023 1 1 [facility] for referral (narrative)* Diagnostic Procedure Only (Routine) - Closed Specialty Diagnoses / Procedures Referred By Contac t Referred To Contact BR IM[facility] Diagnoses Encounter for screening mammogram for breast cancer Procedures GENOVEVA SCREENING SCREENING MAMMOGRAPHY BI 2-VIEW BREAST INC [facility] HendersonDestiney APRN.WEB CONTENT SPECIALIST [address] [place] [address] Br Imaging [address] [place] [address] Referral ID Status Reason Start Date Expiration Date V isits Requested Visits Authorized [id number] Closed Auto-Generate d Referral 09/05/2022 09/01/2023 1 1 [facility] for referral (narrative)* Diagnostic Procedure Only (Routine) - Pending Review Specialty Diagnoses / Procedures Referred By Contac t Referred To Contact [facility] IMAG[facility] Diagnoses Encounter for gynecological examination (general) (routine) without abnormal findings Encounter for screening mammogram for breast cancer Procedures GENOVEVA SCREENING SCREENING MAMMOGRAPHY BI 2-VIEW BREAST INC CAD HendersonDestiney APRN.WEB CONTENT SPECIALIST [address] [place] [address] Br Imaging [address] [place] [address] Referral ID Status Reason Start Date Expiration Date Visits Requested Visits Authorized [id number] Pending Review Auto-Generat ed Referral 12/24/2023 01/22/2025 1 1 [facility] for referral (narrative)* Outpatient Procedure (Routine) - Closed Specialty Diagnoses / Procedures Referred By Contac t Referred To Contact [facility] Diagnoses Change in bowel habits Procedures COLONOSCOPY DIAGNOSTIC COLONOSCOPY FLX DX W/COLLJ SPEC WHEN PFRMD Cande Pozo PA-C [address] [place] [address] [address] Referral ID Status Reason Start Date Expiration Date V isits Requested Visits Authorized [id number] Closed Auto-Generate d Referral 04/30/2023 04/30/2024 1 1 * Outpatient Procedure (Routine) - Closed Specialty Diagnoses / Procedures Referred By Shiraz johnson Referred To Contact [facility] Diagnoses Gastroesophageal reflux disease, unspecified whether esophagitis present Procedures EGD DIAGNOSTIC ESOPHAGOGASTRODUODENOSC OPY TRANSORAL DIAGNOSTIC Cande Pozo PA-C [address] [place] [address] [address] Referral ID Status Reason Start Date Expiration Date V isits Requested Visits Authorized [id number] Closed Auto-Generate d Referral 04/30/2023 04/30/2024 1 1 [facility] for referral (narrative)* Diagnostic Procedure Only (Routine) - Authorized Specialty Diagnoses / Procedures Referred By Shiraz t Referred To Contact BR IMAG[facility] Diagnoses Encounter for screening mammogram for malignant neoplasm of breast Procedures GENOVEVA SCREENING W LILLY SCREENING DIGITAL BREAST TOMOSYNTHESIS BI SCREENING MAMMOGRAPHY BI 2-VIEW BREAST INC CAD Ifeoma Davis MD [address] [place] [address] Br Imaging [address] [place] [address] Referral ID Status Reason Start Date Expiration Date Visits Requested Visits Authorized [id number] Authorized Auto-Generat ed Referral 07/12/2025 1 1 [facility] for referral (narrative)* Outpatient Procedure (Routine) - Closed Specialty Diagnoses / Procedures Referred By Contac t Referred To Contact [facility] [place] Diagnoses PXE (pseudoxanthoma elasticum) Procedures US CAROTID ARTERIES [facility]ARY[facility] DUPLEX SCAN EXTRACRANIAL ART COMPL BI STUDY Ifeoma Davis MD [address] [place] [address] [facility] Vascular [address] [address] Referral ID Status Reason Start Date Expiration Date V isits Requested Visits Authorized [id number] Closed Auto-Generate d Referral 05/14/2024 05/14/2025 1 1 [facility] (narrative)No reason for referral information [facility] Work Phone: Reason for visit Narrative* Diagnostic Procedure Only (Routine) - Closed Specialty Diagnoses / Procedures Referred By Contac t Referred To Contact XR IMAGING Diagnoses Pain Procedures XR HAND GENERAL 3V PA/LAT/OBL BILATERAL RADEX HAND MINIMUM 3 VIEWS Massimo Roberts MD [address] [place] [address] [place] [address] Referral ID Status Reason Start Date Expiration Date V isits Requested Visits Authorized [id number] Closed Auto-Generate d Referral 04/20/2022 09/01/2023 1 1 [facility] for visit Narrative* Diagnostic Procedure Only (Routine) - Closed Specialty Diagnoses / Procedures Referred By Contac t Referred To Contact BR IMAG[facility] Diagnoses Abnormal mammogram Procedures GENOVEVA DIAGNOSTIC RT DIAGNOSTIC MAMMOGRAPHY COMPUTER-AIDED DETCJ Destiney Cortez.WEB CONTENT SPECIALIST [address] [place] [address] Br Imaging [address] [place] [address] Referral ID Status Reason Start Date Expiration Date V isits Requested Visits Authorized [id number] Closed Auto-Generate d Referral 09/28/2022 10/28/2023 1 1 [facility] for visit Narrative* Diagnostic Procedure Only (Routine) - Closed Specialty Diagnoses / Procedures Referred By Contac t Referred To Contact BR IMAGING Diagnoses Encounter for screening mammogram for breast cancer Procedures GENOVEVA SCREENING SCREENING MAMMOGRAPHY BI 2-VIEW BREAST INC [facility].WEB CONTENT SPECIALIST [address] [place] [address] Br Imaging [address] [place] [address] Referral ID Status Reason Start Date Expiration Date V isits Requested Visits Authorized [id number] Closed Auto-Generate d Referral 12/10/2022 01/09/2024 1 1 [facility] for visit Narrative* Outpatient Procedure (Routine) - Closed Specialty Diagnoses / Procedures Referred By Contac t Referred To Contact [facility] Diagnoses Change in bowel habits Procedures COLONOSCOPY DIAGNOSTIC COLONOSCOPY FLX DX W/COLLJ SPEC WHEN PFRMD Cande Pozo PA-C [address] [place] [address] Dig[facility] [place] [address] [place] [address] Referral ID Status Reason Start Date Expiration Date V isits Requested Visits Authorized [id number] Closed Auto-Generate d Referral 04/30/2023 04/30/2024 1 1 [facility] for visit Narrative* Diagnostic Procedure Only (Routine) - Closed Specialty Diagnoses / Procedures Referred By Contac t Referred To Contact BR IMAG[facility] Diagnoses Encounter for gynecological examination (general) (routine) without abnormal findings Encounter for screening mammogram for breast cancer Procedures GENOVEVA SCREENING SCREENING MAMMOGRAPHY BI 2-VIEW BREAST INC [facility] CONTENT [facility] [address] [place] [address] Phone: tel: fax: [facility] IMAG[facility] [address] [place] [address] Referral ID Status Reason Start Date Expiration Date V isits Requested Visits Authorized [id number] Closed Auto-Generate d Referral 12/24/2023 01/22/[address] 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 Expl anation Advance Directive(s) 10/26/2021 12:12 PM Advance Directive(s) 09/14/2021 11:54 AM Advance Directive(s) 06/22/2019 12:39 PM Advance Directive(s) 02/03/2018 1:55 PM Advance Directive(s) 01/30/2018 9:51 AM Advance Directive Response Recorded Date/ Time Advance Directives Yes August 3:53pm Living Will Yes November 20, 2021 5:09pm Power of Environmental Health Inspector Yes November 20 5:09pm Advance Directive Response Recorded Date/ Time Advance Directives Yes November 24, 025 3:06pm Advance Directive Response Recorded Date/ Time Do you have a Healthcare Power of Environmental Health Inspector? Yes May 27, 2025 6:56pm Advance Directives Yes November 24, 025 3:06pm Advance Directive Response Recorded Date/ Time Do you have a Healthcare Power of Environmental Health Inspector? Yes May 27, 2025 6:56pm Do you have a Healthcare Power of Environmental Health Inspector? Yes June 17, 2025 6:25pm Name of Medical Power of Environmental Health Inspector Melvin Nassar June 17, 2025 6:25pm Do you have a Healthcare Power of Environmental Health Inspector? No June 23, 2025 5:47pm Do you have a Healthcare Power of Environmental Health Inspector? No June 29, 2025 2:44am Advance Directives Yes November 24, 025 3:06pm Advance Directive Response Recorded Date/ Time Do you have a Healthcare Power of Environmental Health Inspector? Yes May 27, 2025 5:56pm Do you have a Healthcare Power of Environmental Health Inspector? Yes June 17, 2025 5:25pm Name of Medical Power of Environmental Health Inspector Melvin Nassar June 17, 2025 5:25pm Do you have a Healthcare Power of Environmental Health Inspector? No June 23, 2025 4:47pm Do you have a Healthcare Power of Environmental Health Inspector? No June 29, 2025 1:44am Do you have a Healthcare Power of Environmental Health Inspector? 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) Vertigo Memory deficits New daily persistent headache Procedures MRI BRAIN WO/W IVCON MRI BRAIN BRAIN STEM W/O W/CONTRAST MATERIAL Ifeoma Davis MD [address] [place] [address] Mr Imaging Referral ID Status Reason Start Date Expiration Date Visits Requested Visits Authorized [id number] Authorized Auto-Generat ed Referral 12/25/2021 01/24/2023 1 1 Specialty Diagnoses / Procedures Referred By Contac t Referred To Contact [facility] Diagnoses Blindness right eye category 3, blindness left eye category 4 Procedures CONSULT TO LABOR ARBITRATOR OCCUPATIONAL THERAPY [facility] HIGH COMPLEX 60 MINS Wolf Mason, OD [address] [place] [address] [facility] [address] [address] Referral ID Status Reason Start Date Expiration Date Visits Requested Visits Authorized [id number] Pending Review Auto-Generat ed Referral 2 08/16/2023 [...] DIRECT PT CONTACT EACH [address] [address] [facility] [place] [address] [place] [address] Referral ID Status Reason Start Date Expiration Date Visits Requested Visits Authorized [id number] Pending Review PCP Requested Referral Auto-Generate d Referral 09/19/2022 12/18/2022 1 1 Specialty Diagnoses / Procedures Referred By Contac t Referred To Contact Gastroenterology Diagnoses Gastroesophageal reflux disease with esophagitis, unspecified whether hemorrhage Procedures CONSULT TO GASTROENTEROLOGY OFFICE/OUTPATIENT [facility] MDM 60-74 MINUTES Ifeoma Davis MD [address] [place] [address] Referral ID Status Reason Start Date Expiration Date Visits Requested Visits Authorized [id number] Pending Review PCP Requested Referral 10/16/2022 10/16/2023 1 1 Specialty Diagnoses / Procedures Referred By Contac t Referred To Contact [facility] [place] Diagnoses Gastroesophageal reflux disease with esophagitis, unspecified whether hemorrhage Procedures ECG COMPLETE ECG ROUTINE ECG W/LEAST 12 LDS W/I&R Ifeoma Davis MD [address] [place] [address] [facility] [address] [address] Referral ID Status Reason Start Date Expiration Date Visits Requested Visits Authorized [id number] Pending Review Auto-Generat ed Referral 10/16/2022 10/16/2023 1 1 Specialty Diagnoses / Procedures Referred By Contac t Referred To Contact [facility] Diagnoses Trigger ring finger of right hand Trigger middle finger of left hand Procedures CONSULT TO LABOR ARBITRATOR OCCUPATIONAL THERAPY EVAL HIGH COMPLEX 60 MINS Taina Fan PA-C [address] [place] [address] [facility] [address] [address] Referral ID Status Reason Start Date Expiration Date Visits Requested Visits Authorized [id number] Pending Review Auto-Generat ed Referral 11/19/2022 11/19/2023 1 1 Specialty Diagnoses / Procedures Referred By Contac t Referred To Contact Destiney Pendleton APRN.WEB CONTENT SPECIALIST [address] [place] [address] Referral ID Status Reason Start Date Expiration Date Visits Re quested Visits Authorized [id number] Closed 1 1 Specialty Diagnoses / Procedures Referred By Contac t Referred To Contact Diagnoses 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 injury Calli Duvall, PACKING SUPERVISOR.WEB CONTENT SPECIALIST [address] [place] [address] Referral ID Status Reason Start Date Expiration Date Visits Re quested Visits Authorized [id number] Closed 1 1 Specialty Diagnoses / Procedures Referred By Contac t Referred To Contact Diagnoses DAYSI (obstructive sleep apnea) 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) Procedures CONSULT TO SLEEP MEDICINE - ADULT OFFICE/OUTPATIENT [facility] 60 MINUTES Ifeoma Davis MD [address] [place] [address] Referral ID Status Reason Start Date Expiration Date Visits Requested Visits Authorized [id number] Authorized PCP Requested Referral 07/28/2025 1 1 Specialty Diagnoses / Procedures Referred By Contac t Referred To Contact Diagnoses Vasomotor symptoms due to menopause Destiney Pendleton, PACKING SUPERVISOR.WEB CONTENT SPECIALIST [address] [place] [address] Referral ID Status Reason Start Date Expiration Date V isits Requested Visits Authorized [id number] Authorized 06/16/2024 09/15/2025 1 1 Medications Administered [...] Given 06/25/2022 11:25 AM EDT 0.1 mL oeoacdcl-euufcdgjm-kkefqlgpw sone 3.5 mg/g-10,000 unit/g-0.1 % (POLYDEX) X [...] EDT 2 Drops Summary Purpose Family History Relationship Condition Age at Onset Recorded Date/T [...] HIP June 04, 2025 10 :59am Room June 04, 2025 11 :43am PREOP June 17, 2025 2 :01pm headachwe June 17, 2025 5 :54pm LEFT HIP TEMPLATING June 21, 2025 1 2:59pm headache June 23, 2025 5 :25pm weakness June 29, 2025 2 :43am Chief Complaint Admit Date LUMBAR SPINE April 16, 2025 2: 23pm [...] :25pm weakness June 29, 2025 2 :43am headache July 10, 2025 2 :52pm Reason for Visit Admit Date Degenerative scoliosis April 16, 2025 2:23pm Hip [...] or prosecute any alcohol or drug abuse patient.[facility] the event this information is protected by the Federal Confidentiality of Alcohol and Drug Abuse Patient Records regulations: The Federal rules restrict any use of the information to criminally investigate or prosecute any alcohol or drug abuse patient.[facility] the event this information is protected by the Federal Confidentiality of Alcohol and Drug Abuse Patient Records regulations: The Federal rules restrict any use of the information to criminally investigate or prosecute any alcohol or drug abuse patient.[facility] the event this information is protected by the Federal Confidentiality of Alcohol and Drug Abuse Patient Records regulations: The Federal rules restrict any use of the information to criminally investigate or prosecute any alcohol or drug abuse patient.[facility] the event this information is protected by the Federal Confidentiality of Alcohol and Drug Abuse Patient Records regulations: The Federal rules restrict any use of the information to criminally investigate or prosecute any alcohol or drug abuse patient.[facility] the event this information is protected by the Federal Confidentiality of Alcohol and Drug Abuse Patient Records regulations: The Federal rules restrict any use of the information to criminally investigate or prosecute any alcohol or drug abuse patient.[facility] the event this information is protected by the Federal Confidentiality of Alcohol and Drug Abuse Patient Records regulations: The Federal rules restrict any use of the information to criminally investigate or prosecute any alcohol or drug abuse patient.[facility] the event this information is protected by the Federal Confidentiality of Alcohol and Drug Abuse Patient Records regulations: The Federal rules restrict any use of the information to criminally investigate or prosecute any alcohol or drug abuse patient.[facility] the event this information is protected by the Federal Confidentiality of Alcohol and Drug Abuse Patient Records regulations: The Federal rules restrict any use of the information to criminally investigate or prosecute any alcohol or drug abuse patient.[facility] the event this information is protected by the Federal Confidentiality of Alcohol and Drug Abuse Patient Records regulations: The Federal rules restrict any use of the information to criminally investigate or prosecute any alcohol or drug abuse patient.[facility] the event this information is protected by the Federal Confidentiality of Alcohol and Drug Abuse Patient Records regulations: The Federal rules restrict any use of the information to criminally investigate or prosecute any alcohol or drug abuse patient.[facility] the event this information is protected by the Federal Confidentiality of Alcohol and Drug Abuse Patient Records regulations: The Federal rules restrict any use of the information to criminally investigate or prosecute any alcohol or drug abuse patient.[facility] the event this information is protected by the Federal Confidentiality of Alcohol and Drug Abuse Patient Records regulations: The Federal rules restrict any use of the information to criminally investigate or prosecute any alcohol or drug abuse patient.[facility] the event this information is protected by the Federal Confidentiality of Alcohol and Drug Abuse Patient Records regulations: The Federal rules restrict any use of the information to criminally investigate or prosecute any alcohol or drug abuse patient.[facility] the event this information is protected by the Federal Confidentiality of Alcohol and Drug Abuse Patient Records regulations: The Federal rules restrict any use of the information to criminally investigate or prosecute any alcohol or drug abuse patient.[facility]In the event this information is protected by the Federal Confidentiality of Alcohol and Drug Abuse Patient Records regulations: The Federal rules restrict any use of the information to criminally investigate or prosecute any alcohol or drug abuse patient.[facility]In the event this information is protected by the Federal Confidentiality of Alcohol and Drug Abuse Patient Records regulations: The Federal rules restrict any use of the information to criminally investigate or prosecute any alcohol or drug abuse patient.[facility] HospitalIn the event this information is protected by the Federal Confidentiality of Alcohol and Drug Abuse Patient Records regulations: The Federal rules restrict any use of the information to criminally investigate or prosecute any alcohol or drug abuse patient.[facility] HospitalIn the event this information is protected by the Federal Confidentiality of Alcohol and Drug Abuse Patient Records regulations: The Federal rules restrict any use of the information to criminally investigate or prosecute any alcohol or drug abuse patient.[facility] HospitalIn the event this information is protected by the Federal Confidentiality of Alcohol and Drug Abuse Patient Records regulations: The Federal rules restrict any use of the information to criminally investigate or prosecute any alcohol or drug abuse patient.[facility]In the event this information is protected by the Federal Confidentiality of Alcohol and Drug Abuse Patient Records regulations: The Federal rules restrict any use of the information to criminally investigate or prosecute any alcohol or drug abuse patient.[facility] HospitalIn the event this information is protected by the Federal Confidentiality of Alcohol and Drug Abuse Patient Records regulations: The Federal rules restrict any use of the information to criminally investigate or prosecute any alcohol or drug abuse patient.[facility]In the event this information is protected by the Federal Confidentiality of Alcohol and Drug Abuse Patient Records regulations: The Federal rules restrict any use of the information to criminally investigate or prosecute any alcohol or drug abuse patient.[facility]In the event this information is protected by the Federal Confidentiality of Alcohol and Drug Abuse Patient Records regulations: The Federal rules restrict any use of the information to criminally investigate or prosecute any alcohol or drug abuse patient.[facility]In the event this information is protected by the Federal Confidentiality of Alcohol and Drug Abuse Patient Records regulations: The Federal rules restrict any use of the information to criminally investigate or prosecute any alcohol or drug abuse patient.[facility]In the event this information is protected by the Federal Confidentiality of Alcohol and Drug Abuse Patient Records regulations: The Federal rules restrict any use of the information to criminally investigate or prosecute any alcohol or drug abuse patient.[facility]In the event this information is protected by the Federal Confidentiality of Alcohol and Drug Abuse Patient Records regulations: The Federal rules restrict any use of the information to criminally investigate or prosecute any alcohol or drug abuse patient.[facility]In the event this information is protected by the Federal Confidentiality of Alcohol and Drug Abuse Patient Records regulations: The Federal rules restrict any use of the information to criminally investigate or prosecute any alcohol or drug abuse patient.[facility]In the event this information is protected by the Federal Confidentiality of Alcohol and Drug Abuse Patient Records regulations: The Federal rules restrict any use of the information to criminally investigate or prosecute any alcohol or drug abuse patient.[facility] HospitalIn the event this information is protected by the Federal Confidentiality of Alcohol and Drug Abuse Patient Records regulations: The Federal rules restrict any use of the information to criminally investigate or prosecute any alcohol or drug abuse patient.[facility]In the event this information is protected by the Federal Confidentiality of Alcohol and Drug Abuse Patient Records regulations: The Federal rules restrict any use of the information to criminally investigate or prosecute any alcohol or drug abuse patient.[facility]In the event this information is protected by the Federal Confidentiality of Alcohol and Drug Abuse Patient Records regulations: The Federal rules restrict any use of the information to criminally investigate or prosecute any alcohol or drug abuse patient.[facility] HospitalIn the event this information is protected by the Federal Confidentiality of Alcohol and Drug Abuse Patient Records regulations: The Federal rules restrict any use of the information to criminally investigate or prosecute any alcohol or drug abuse patient.[facility] HospitalIn the event this information is protected by the Federal Confidentiality of Alcohol and Drug Abuse Patient Records regulations: The Federal rules restrict any use of the information to criminally investigate or prosecute any alcohol or drug abuse patient.[facility] HospitalIn the event this information is protected by the Federal Confidentiality of Alcohol and Drug Abuse Patient Records regulations: The Federal rules restrict any use of the information to criminally investigate or prosecute any alcohol or drug abuse patient.[facility] HospitalIn the event this information is protected by the Federal Confidentiality of Alcohol and Drug Abuse Patient Records regulations: The Federal rules restrict any use of the information to criminally investigate or prosecute any alcohol or drug abuse patient.[facility] HospitalIn the event this information is protected by the Federal Confidentiality of Alcohol and Drug Abuse Patient Records regulations: The Federal rules restrict any use of the information to criminally investigate or prosecute any alcohol or drug abuse patient.[facility]In the event this information is protected by the Federal Confidentiality of Alcohol and Drug Abuse Patient Records regulations: The Federal rules restrict any use of the information to criminally investigate or prosecute any alcohol or drug abuse patient.[facility]In the event this information is protected by the Federal Confidentiality of Alcohol and Drug Abuse Patient Records regulations: The Federal rules restrict any use of the information to criminally investigate or prosecute any alcohol or drug abuse patient.[facility] HospitalIn the event this information is protected by the Federal Confidentiality of Alcohol and Drug Abuse Patient Records regulations: The Federal rules restrict any use of the information to criminally investigate or prosecute any alcohol or drug abuse patient.[facility] HospitalIn the event this information is protected by the Federal Confidentiality of Alcohol and Drug Abuse Patient Records regulations: The Federal rules restrict any use of the information to criminally investigate or prosecute any alcohol or drug abuse patient.[facility] HospitalIn the event this information is protected by the Federal Confidentiality of Alcohol and Drug Abuse Patient Records regulations: The Federal rules restrict any use of the information to criminally investigate or prosecute any alcohol or drug abuse patient.[facility] HospitalIn the event this information is protected by the Federal Confidentiality of Alcohol and Drug Abuse Patient Records regulations: The Federal rules restrict any use of the information to criminally investigate or prosecute any alcohol or drug abuse patient.[facility] HospitalIn the event this information is protected by the Federal Confidentiality of Alcohol and Drug Abuse Patient Records regulations: The Federal rules restrict any use of the information to criminally investigate or prosecute any alcohol or drug abuse patient.[facility] HospitalIn the event this information is protected by the Federal Confidentiality of Alcohol and Drug Abuse Patient Records regulations: The Federal rules restrict any use of the information to criminally investigate or prosecute any alcohol or drug abuse patient.[facility] HospitalIn the event this information is protected by the Federal Confidentiality of Alcohol and Drug Abuse Patient Records regulations: The Federal rules restrict any use of the information to criminally investigate or prosecute any alcohol or drug abuse patient.[facility] the event this information is protected by the Federal Confidentiality of Alcohol and Drug Abuse Patient Records regulations: The Federal rules restrict any use of the information to criminally investigate or prosecute any alcohol or drug abuse patient.[facility]In the event this information is protected by the Federal Confidentiality of Alcohol and Drug Abuse Patient Records regulations: The Federal rules restrict any use of the information to criminally investigate or prosecute any alcohol or drug abuse patient.[facility] HospitalIn the event this information is protected by the Federal Confidentiality of Alcohol and Drug Abuse Patient Records regulations: The Federal rules restrict any use of the information to criminally investigate or prosecute any alcohol or drug abuse patient.[facility] the event this information is protected by the Federal Confidentiality of Alcohol and Drug Abuse Patient Records regulations: The Federal rules restrict any use of the information to criminally investigate or prosecute any alcohol or drug abuse patient.[facility]In the event this information is protected by the Federal Confidentiality of Alcohol and Drug Abuse Patient Records regulations: The Federal rules restrict any use of the information to criminally investigate or prosecute any alcohol or drug abuse patient.[facility]In the event this information is protected by the Federal Confidentiality of Alcohol and Drug Abuse Patient Records regulations: The Federal rules restrict any use of the information to criminally investigate or prosecute any alcohol or drug abuse patient.[facility]In the event this information is protected by the Federal Confidentiality of Alcohol and Drug Abuse Patient Records regulations: The Federal rules restrict any use of the information to criminally investigate or prosecute any alcohol or drug abuse patient.[facility]In the event this information is protected by the Federal Confidentiality of Alcohol and Drug Abuse Patient Records regulations: The Federal rules restrict any use of the information to criminally investigate or prosecute any alcohol or drug abuse patient.[facility]In the event this information is protected by the Federal Confidentiality of Alcohol and Drug Abuse Patient Records regulations: The Federal rules restrict any use of the information to criminally investigate or prosecute any alcohol or drug abuse patient.[facility]In the event this information is protected by the Federal Confidentiality of Alcohol and Drug Abuse Patient Records regulations: The Federal rules restrict any use of the information to criminally investigate or prosecute any alcohol or drug abuse patient.[facility]In the event this information is protected by the Federal Confidentiality of Alcohol and Drug Abuse Patient Records regulations: The Federal rules restrict any use of the information to criminally investigate or prosecute any alcohol or drug abuse patient.[facility]In the event this information is protected by the Federal Confidentiality of Alcohol and Drug Abuse Patient Records regulations: The Federal rules restrict any use of the information to criminally investigate or prosecute any alcohol or drug abuse patient.[facility]In the event this information is protected by the Federal Confidentiality of Alcohol and Drug Abuse Patient Records regulations: The Federal rules restrict any use of the information to criminally investigate or prosecute any alcohol or drug abuse patient.[facility]In the event this information is protected by the Federal Confidentiality of Alcohol and Drug Abuse Patient Records regulations: The Federal rules restrict any use of the information to criminally investigate or prosecute any alcohol or drug abuse patient.[facility]In the event this information is protected by the Federal Confidentiality of Alcohol and Drug Abuse Patient Records regulations: The Federal rules restrict any use of the information to criminally investigate or prosecute any alcohol or drug abuse patient.[facility] HospitalIn the event this information is protected by the Federal Confidentiality of Alcohol and Drug Abuse Patient Records regulations: The Federal rules restrict any use of the information to criminally investigate or prosecute any alcohol or drug abuse patient.[facility]In the event this information is protected by the Federal Confidentiality of Alcohol and Drug Abuse Patient Records regulations: The Federal rules restrict any use of the information to criminally investigate or prosecute any alcohol or drug abuse patient.[facility] HospitalIn the event this information is protected by the Federal Confidentiality of Alcohol and Drug Abuse Patient Records regulations: The Federal rules restrict any use of the information to criminally investigate or prosecute any alcohol or drug abuse patient.[facility] HospitalIn the event this information is protected by the Federal Confidentiality of Alcohol and Drug Abuse Patient Records regulations: The Federal rules restrict any use of the information to criminally investigate or prosecute any alcohol or drug abuse patient.[facility]In the event this information is protected by the Federal Confidentiality of Alcohol and Drug Abuse Patient Records regulations: The Federal rules restrict any use of the information to criminally investigate or prosecute any alcohol or drug abuse patient.[facility]In the event this information is protected by the Federal Confidentiality of Alcohol and Drug Abuse Patient Records regulations: The Federal rules restrict any use of the information to criminally investigate or prosecute any alcohol or drug abuse patient.[facility] HospitalIn the event this information is protected by the Federal Confidentiality of Alcohol and Drug Abuse Patient Records regulations: The Federal rules restrict any use of the information to criminally investigate or prosecute any alcohol or drug abuse patient.[facility]In the event this information is protected by the Federal Confidentiality of Alcohol and Drug Abuse Patient Records regulations: The Federal rules restrict any use of the information to criminally investigate or prosecute any alcohol or drug abuse patient.[facility]In the event this information is protected by the Federal Confidentiality of Alcohol and Drug Abuse Patient Records regulations: The Federal rules restrict any use of the information to criminally investigate or prosecute any alcohol or drug abuse patient.[facility]In the event this information is protected by the Federal Confidentiality of Alcohol and Drug Abuse Patient Records regulations: The Federal rules restrict any use of the information to criminally investigate or prosecute any alcohol or drug abuse patient.[facility]In the event this information is protected by the Federal Confidentiality of Alcohol and Drug Abuse Patient Records regulations: The Federal rules restrict any use of the information to criminally investigate or prosecute any alcohol or drug abuse patient.[facility]In the event this information is protected by the Federal Confidentiality of Alcohol and Drug Abuse Patient Records regulations: The Federal rules restrict any use of the information to criminally investigate or prosecute any alcohol or drug abuse patient.[facility] HospitalIn the event this information is protected by the Federal Confidentiality of Alcohol and Drug Abuse Patient Records regulations: The Federal rules restrict any use of the information to criminally investigate or prosecute any alcohol or drug abuse patient.[facility]In the event this information is protected by the Federal Confidentiality of Alcohol and Drug Abuse Patient Records regulations: The Federal rules restrict any use of the information to criminally investigate or prosecute any alcohol or drug abuse patient.[facility]In the event this information is protected by the Federal Confidentiality of Alcohol and Drug Abuse Patient Records regulations: The Federal rules restrict any use of the information to criminally investigate or prosecute any alcohol or drug abuse patient.[facility]In the event this information is protected by the Federal Confidentiality of Alcohol and Drug Abuse Patient Records regulations: The Federal rules restrict any use of the information to criminally investigate or prosecute any alcohol or drug abuse patient.[facility]In the event this information is protected by the Federal Confidentiality of Alcohol and Drug Abuse Patient Records regulations: The Federal rules restrict any use of the information to criminally investigate or prosecute any alcohol or drug abuse patient.[facility]In the event this information is protected by the Federal Confidentiality of Alcohol and Drug Abuse Patient Records regulations: The Federal rules restrict any use of the information to criminally investigate or prosecute any alcohol or drug abuse patient.[facility]In the event this information is protected by the Federal Confidentiality of Alcohol and Drug Abuse Patient Records regulations: The Federal rules restrict any use of the information to criminally investigate or prosecute any alcohol or drug abuse patient.[facility]In the event this information is protected by the Federal Confidentiality of Alcohol and Drug Abuse Patient Records regulations: The Federal rules restrict any use of the information to criminally investigate or prosecute any alcohol or drug abuse patient.[facility]In the event this information is protected by the Federal Confidentiality of Alcohol and Drug Abuse Patient Records regulations: The Federal rules restrict any use of the information to criminally investigate or prosecute any alcohol or drug abuse patient.[facility]In the event this information is protected by the Federal Confidentiality of Alcohol and Drug Abuse Patient Records regulations: The Federal rules restrict any use of the information to criminally investigate or prosecute any alcohol or drug abuse patient.[facility]In the event this information is protected by the Federal Confidentiality of Alcohol and Drug Abuse Patient Records regulations: The Federal rules restrict any use of the information to criminally investigate or prosecute any alcohol or drug abuse patient.[facility]In the event this information is protected by the Federal Confidentiality of Alcohol and Drug Abuse Patient Records regulations: The Federal rules restrict any use of the information to criminally investigate or prosecute any alcohol or drug abuse patient.[facility]In the event this information is protected by the Federal Confidentiality of Alcohol and Drug Abuse Patient Records regulations: The Federal rules restrict any use of the information to criminally investigate or prosecute any alcohol or drug abuse patient.[facility]In the event this information is protected by the Federal Confidentiality of Alcohol and Drug Abuse Patient Records regulations: The Federal rules restrict any use of the information to criminally investigate or prosecute any alcohol or drug abuse patient.[facility]In the event this information is protected by the Federal Confidentiality of Alcohol and Drug Abuse Patient Records regulations: The Federal rules restrict any use of the information to criminally investigate or prosecute any alcohol or drug abuse patient.[facility]In the event this information is protected by the Federal Confidentiality of Alcohol and Drug Abuse Patient Records regulations: The Federal rules restrict any use of the information to criminally investigate or prosecute any alcohol or drug abuse patient.[facility]In the event this information is protected by the Federal Confidentiality of Alcohol and Drug Abuse Patient Records regulations: The Federal rules restrict any use of the information to criminally investigate or prosecute any alcohol or drug abuse patient.[facility]In the event this information is protected by the Federal Confidentiality of Alcohol and Drug Abuse Patient Records regulations: The Federal rules restrict any use of the information to criminally investigate or prosecute any alcohol or drug abuse patient.[facility]In the event this information is protected by the Federal Confidentiality of Alcohol and Drug Abuse Patient Records regulations: The Federal rules restrict any use of the information to criminally investigate or prosecute any alcohol or drug abuse patient.[facility]In the event this information is protected by the Federal Confidentiality of Alcohol and Drug Abuse Patient Records regulations: The Federal rules restrict any use of the information to criminally investigate or prosecute any alcohol or drug abuse patient.[facility]In the event this information is protected by the Federal Confidentiality of Alcohol and Drug Abuse Patient Records regulations: The Federal rules restrict any use of the information to criminally investigate or prosecute any alcohol or drug abuse patient.[facility]In the event this information is protected by the Federal Confidentiality of Alcohol and Drug Abuse Patient Records regulations: The Federal rules restrict any use of the information to criminally investigate or prosecute any alcohol or drug abuse patient.[facility] HospitalIn the event this information is protected by the Federal Confidentiality of Alcohol and Drug Abuse Patient Records regulations: The Federal rules restrict any use of the information to criminally investigate or prosecute any alcohol or drug abuse patient.[facility] the event this information is protected by the Federal Confidentiality of Alcohol and Drug Abuse Patient Records regulations: The Federal rules restrict any use of the information to criminally investigate or prosecute any alcohol or drug abuse patient.[facility]In the event this information is protected by the Federal Confidentiality of Alcohol and Drug Abuse Patient Records regulations: The Federal rules restrict any use of the information to criminally investigate or prosecute any alcohol or drug abuse patient.[facility] HospitalIn the event this information is protected by the Federal Confidentiality of Alcohol and Drug Abuse Patient Records regulations: The Federal rules restrict any use of the information to criminally investigate or prosecute any alcohol or drug abuse patient.[facility] the event this information is protected by the Federal Confidentiality of Alcohol and Drug Abuse Patient Records regulations: The Federal rules restrict any use of the information to criminally investigate or prosecute any alcohol or drug abuse patient.[facility]In the event this information is protected by the Federal Confidentiality of Alcohol and Drug Abuse Patient Records regulations: The Federal rules restrict any use of the information to criminally investigate or prosecute any alcohol or drug abuse patient.[facility] HospitalIn the event this information is protected by the Federal Confidentiality of Alcohol and Drug Abuse Patient Records regulations: The Federal rules restrict any use of the information to criminally investigate or prosecute any alcohol or drug abuse patient.[facility] HospitalIn the event this information is protected by the Federal Confidentiality of Alcohol and Drug Abuse Patient Records regulations: The Federal rules restrict any use of the information to criminally investigate or prosecute any alcohol or drug abuse patient.[facility] HospitalIn the event this information is protected by the Federal Confidentiality of Alcohol and Drug Abuse Patient Records regulations: The Federal rules restrict any use of the information to criminally investigate or prosecute any alcohol or drug abuse patient.[facility] HospitalIn the event this information is protected by the Federal Confidentiality of Alcohol and Drug Abuse Patient Records regulations: The Federal rules restrict any use of the information to criminally investigate or prosecute any alcohol or drug abuse patient.[facility] HospitalIn the event this information is protected by the Federal Confidentiality of Alcohol and Drug Abuse Patient Records regulations: The Federal rules restrict any use of the information to criminally investigate or prosecute any alcohol or drug abuse patient.[facility] HospitalIn the event this information is protected by the Federal Confidentiality of Alcohol and Drug Abuse Patient Records regulations: The Federal rules restrict any use of the information to criminally investigate or prosecute any alcohol or drug abuse patient.[facility] HospitalIn the event this information is protected by the Federal Confidentiality of Alcohol and Drug Abuse Patient Records regulations: The Federal rules restrict any use of the information to criminally investigate or prosecute any alcohol or drug abuse patient.[facility] HospitalIn the event this information is protected by the Federal Confidentiality of Alcohol and Drug Abuse Patient Records regulations: The Federal rules restrict any use of the information to criminally investigate or prosecute any alcohol or drug abuse patient.[facility] HospitalIn the event this information is protected by the Federal Confidentiality of Alcohol and Drug Abuse Patient Records regulations: The Federal rules restrict any use of the information to criminally investigate or prosecute any alcohol or drug abuse patient.[facility] HospitalIn the event this information is protected by the Federal Confidentiality of Alcohol and Drug Abuse Patient Records regulations: The Federal rules restrict any use of the information to criminally investigate or prosecute any alcohol or drug abuse patient.[facility] HospitalIn the event this information is protected by the Federal Confidentiality of Alcohol and Drug Abuse Patient Records regulations: The Federal rules restrict any use of the information to criminally investigate or prosecute any alcohol or drug abuse patient.[facility] HospitalIn the event this information is protected by the Federal Confidentiality of Alcohol and Drug Abuse Patient Records regulations: The Federal rules restrict any use of the information to criminally investigate or prosecute any alcohol or drug abuse patient.[facility] HospitalIn the event this information is protected by the Federal Confidentiality of Alcohol and Drug Abuse Patient Records regulations: The Federal rules restrict any use of the information to criminally investigate or prosecute any alcohol or drug abuse patient.[facility] HospitalIn the event this information is protected by the Federal Confidentiality of Alcohol and Drug Abuse Patient Records regulations: The Federal rules restrict any use of the information to criminally investigate or prosecute any alcohol or drug abuse patient.[facility] HospitalIn the event this information is protected by the Federal Confidentiality of Alcohol and Drug Abuse Patient Records regulations: The Federal rules restrict any use of the information to criminally investigate or prosecute any alcohol or drug abuse patient.[facility] HospitalIn the event this information is protected by the Federal Confidentiality of Alcohol and Drug Abuse Patient Records regulations: The Federal rules restrict any use of the information to criminally investigate or prosecute any alcohol or drug abuse patient.[facility] HospitalIn the event this information is protected by the Federal Confidentiality of Alcohol and Drug Abuse Patient Records regulations: The Federal rules restrict any use of the information to criminally investigate or prosecute any alcohol or drug abuse patient.[facility] HospitalIn the event this information is protected by the Federal Confidentiality of Alcohol and Drug Abuse Patient Records regulations: The Federal rules restrict any use of the information to criminally investigate or prosecute any alcohol or drug abuse patient.[facility] HospitalIn the event this information is protected by the Federal Confidentiality of Alcohol and Drug Abuse Patient Records regulations: The Federal rules restrict any use of the information to criminally investigate or prosecute any alcohol or drug abuse patient.[facility] HospitalIn the event this information is protected by the Federal Confidentiality of Alcohol and Drug Abuse Patient Records regulations: The Federal rules restrict any use of the information to criminally investigate or prosecute any alcohol or drug abuse patient.[facility] HospitalIn the event this information is protected by the Federal Confidentiality of Alcohol and Drug Abuse Patient Records regulations: The Federal rules restrict any use of the information to criminally investigate or prosecute any alcohol or drug abuse patient.[facility] HospitalIn the event this information is protected by the Federal Confidentiality of Alcohol and Drug Abuse Patient Records regulations: The Federal rules restrict any use of the information to criminally investigate or prosecute any alcohol or drug abuse patient.[facility] HospitalIn the event this information is protected by the Federal Confidentiality of Alcohol and Drug Abuse Patient Records regulations: The Federal rules restrict any use of the information to criminally investigate or prosecute any alcohol or drug abuse patient.[facility] HospitalIn the event this information is protected by the Federal Confidentiality of Alcohol and Drug Abuse Patient Records regulations: The Federal rules restrict any use of the information to criminally investigate or prosecute any alcohol or drug abuse patient.[facility] HospitalIn the event this information is protected by the Federal Confidentiality of Alcohol and Drug Abuse Patient Records regulations: The Federal rules restrict any use of the information to criminally investigate or prosecute any alcohol or drug abuse patient.[facility] HospitalIn the event this information is protected by the Federal Confidentiality of Alcohol and Drug Abuse Patient Records regulations: The Federal rules restrict any use of the information to criminally investigate or prosecute any alcohol or drug abuse patient.[facility] HospitalIn the event this information is protected by the Federal Confidentiality of Alcohol and Drug Abuse Patient Records regulations: The Federal rules restrict any use of the information to criminally investigate or prosecute any alcohol or drug abuse patient.[facility] HospitalIn the event this information is protected by the Federal Confidentiality of Alcohol and Drug Abuse Patient Records regulations: The Federal rules restrict any use of the information to criminally investigate or prosecute any alcohol or drug abuse patient.[facility] HospitalIn the event this information is protected by the Federal Confidentiality of Alcohol and Drug Abuse Patient Records regulations: The Federal rules restrict any use of the information to criminally investigate or prosecute any alcohol or drug abuse patient.[facility] HospitalIn the event this information is protected by the Federal Confidentiality of Alcohol and Drug Abuse Patient Records regulations: The Federal rules restrict any use of the information to criminally investigate or prosecute any alcohol or drug abuse patient.[facility] HospitalIn the event this information is protected by the Federal Confidentiality of Alcohol and Drug Abuse Patient Records regulations: The Federal rules restrict any use of the information to criminally investigate or prosecute any alcohol or drug abuse patient.[facility] HospitalIn the event this information is protected by the Federal Confidentiality of Alcohol and Drug Abuse Patient Records regulations: The Federal rules restrict any use of the information to criminally investigate or prosecute any alcohol or drug abuse patient.[facility] HospitalIn the event this information is protected by the Federal Confidentiality of Alcohol and Drug Abuse Patient Records regulations: The Federal rules restrict any use of the information to criminally investigate or prosecute any alcohol or drug abuse patient.[facility] HospitalIn the event this information is protected by the Federal Confidentiality of Alcohol and Drug Abuse Patient Records regulations: The Federal rules restrict any use of the information to criminally investigate or prosecute any alcohol or drug abuse patient.[facility] HospitalIn the event this information is protected by the Federal Confidentiality of Alcohol and Drug Abuse Patient Records regulations: The Federal rules restrict any use of the information to criminally investigate or prosecute any alcohol or drug abuse patient.[facility] HospitalIn the event this information is protected by the Federal Confidentiality of Alcohol and Drug Abuse Patient Records regulations: The Federal rules restrict any use of the information to criminally investigate or prosecute any alcohol or drug abuse patient.[facility] HospitalIn the event this information is protected by the Federal Confidentiality of Alcohol and Drug Abuse Patient Records regulations: The Federal rules restrict any use of the information to criminally investigate or prosecute any alcohol or drug abuse patient.[facility] HospitalIn the event this information is protected by the Federal Confidentiality of Alcohol and Drug Abuse Patient Records regulations: The Federal rules restrict any use of the information to criminally investigate or prosecute any alcohol or drug abuse patient.[facility] HospitalIn the event this information is protected by the Federal Confidentiality of Alcohol and Drug Abuse Patient Records regulations: The Federal rules restrict any use of the information to criminally investigate or prosecute any alcohol or drug abuse patient.[facility] HospitalIn the event this information is protected by the Federal Confidentiality of Alcohol and Drug Abuse Patient Records regulations: The Federal rules restrict any use of the information to criminally investigate or prosecute any alcohol or drug abuse patient.[facility] HospitalIn the event this information is protected by the Federal Confidentiality of Alcohol and Drug Abuse Patient Records regulations: The Federal rules restrict any use of the information to criminally investigate or prosecute any alcohol or drug abuse patient.[facility] HospitalIn the event this information is protected by the Federal Confidentiality of Alcohol and Drug Abuse Patient Records regulations: The Federal rules restrict any use of the information to criminally investigate or prosecute any alcohol or drug abuse patient.[facility] HospitalIn the event this information is protected by the Federal Confidentiality of Alcohol and Drug Abuse Patient Records regulations: The Federal rules restrict any use of the information to criminally investigate or prosecute any alcohol or drug abuse patient.[facility] HospitalIn the event this information is protected by the Federal Confidentiality of Alcohol and Drug Abuse Patient Records regulations: The Federal rules restrict any use of the information to criminally investigate or prosecute any alcohol or drug abuse patient.[facility] HospitalIn the event this information is protected by the Federal Confidentiality of Alcohol and Drug Abuse Patient Records regulations: The Federal rules restrict any use of the information to criminally investigate or prosecute any alcohol or drug abuse patient.[facility] the event this information is protected by the Federal Confidentiality of Alcohol and Drug Abuse Patient Records regulations: The Federal rules restrict any use of the information to criminally investigate or prosecute any alcohol or drug abuse patient.[facility] HospitalIn the event this information is protected by the Federal Confidentiality of Alcohol and Drug Abuse Patient Records regulations: The Federal rules restrict any use of the information to criminally investigate or prosecute any alcohol or drug abuse patient.[facility] HospitalIn the event this information is protected by the Federal Confidentiality of Alcohol and Drug Abuse Patient Records regulations: The Federal rules restrict any use of the information to criminally investigate or prosecute any alcohol or drug abuse patient.[facility]In the event this information is protected by the Federal Confidentiality of Alcohol and Drug Abuse Patient Records regulations: The Federal rules restrict any use of the information to criminally investigate or prosecute any alcohol or drug abuse patient.[facility] HospitalIn the event this information is protected by the Federal Confidentiality of Alcohol and Drug Abuse Patient Records regulations: The Federal rules restrict any use of the information to criminally investigate or prosecute any alcohol or drug abuse patient.[facility] HospitalIn the event this information is protected by the Federal Confidentiality of Alcohol and Drug Abuse Patient Records regulations: The Federal rules restrict any use of the information to criminally investigate or prosecute any alcohol or drug abuse patient.[facility] HospitalIn the event this information is protected by the Federal Confidentiality of Alcohol and Drug Abuse Patient Records regulations: The Federal rules restrict any use of the information to criminally investigate or prosecute any alcohol or drug abuse patient.[facility] HospitalIn the event this information is protected by the Federal Confidentiality of Alcohol and Drug Abuse Patient Records regulations: The Federal rules restrict any use of the information to criminally investigate or prosecute any alcohol or drug abuse patient.[facility] HospitalIn the event this information is protected by the Federal Confidentiality of Alcohol and Drug Abuse Patient Records regulations: The Federal rules restrict any use of the information to criminally investigate or prosecute any alcohol or drug abuse patient.[facility] HospitalIn the event this information is protected by the Federal Confidentiality of Alcohol and Drug Abuse Patient Records regulations: The Federal rules restrict any use of the information to criminally investigate or prosecute any alcohol or drug abuse patient.[facility] HospitalIn the event this information is protected by the Federal Confidentiality of Alcohol and Drug Abuse Patient Records regulations: The Federal rules restrict any use of the information to criminally investigate or prosecute any alcohol or drug abuse patient.[facility] HospitalIn the event this information is protected by the Federal Confidentiality of Alcohol and Drug Abuse Patient Records regulations: The Federal rules restrict any use of the information to criminally investigate or prosecute any alcohol or drug abuse patient.[facility] HospitalIn the event this information is protected by the Federal Confidentiality of Alcohol and Drug Abuse Patient Records regulations: The Federal rules restrict any use of the information to criminally investigate or prosecute any alcohol or drug abuse patient.[facility] HospitalIn the event this information is protected by the Federal Confidentiality of Alcohol and Drug Abuse Patient Records regulations: The Federal rules restrict any use of the information to criminally investigate or prosecute any alcohol or drug abuse patient.[facility] HospitalIn the event this information is protected by the Federal Confidentiality of Alcohol and Drug Abuse Patient Records regulations: The Federal rules restrict any use of the information to criminally investigate or prosecute any alcohol or drug abuse patient.[facility] Reason for Visit (unrecogniz ed section and content) Reason Comments Occupational Therapy OT Progress Note Specialty Diagnoses / Procedures Referred By Shiraz johnson Referred To Contact OCCUPATIONAL THERAPY Diagnoses Blindness right eye category 3, blindness left eye category 4 Procedures CONSULT TO LABOR ARBITRATOR OCCUPATIONAL THERAPY EVAL HIGH COMPLEX 60 MINS Wolf Mason, OD [address] [place] [id number] Michelle Perez OT/L Referral ID Status Reason Start Date Expiration Date Visits Requested Visits Authorized [id number] Authorized Auto-Generat ed Referral 09/02/2022 09/01/2023 20 [...] IRIS AND CILIARY BODY [facility] [address] [place] [address] Referral ID Status Reason Start Date Expiration Date Visits Re quested Visits Authorized [id number] 1 1 Reason Comments Post-op (Ophthalmology) Right Eye CE/IOL right eye 06/25/22 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 Reason Comments [...] OT LOW VISION Wolf Mason, OD [address] [place] [address] Michelle Perez OT/L Referral ID Status Reason Start Date Expiration Date Visits Re quested Visits Authorized [id number] Closed 09/19/2022 12/18/2022 1 1 Reason Comments Follow Up Phone Call Reason Comments Orders Reason Comments Schedule Surgery Reason Comments Medication Request Reason Comments Mammogram Result Call Back Reason Comments Tearing Left Eye Specialty Diagnoses / Procedures Referred By Shiraz t Referred To Contact Ophthalmology / OPHTHALMOLOGY Diagnoses Follow-up exam 3 month VaTa (r/s 6 wk after cataract surgery wtih Dr. Eugene) Procedures EST ADULT Self Cynthia Ramos MD [address] [place] [address] Referral ID Status Reason Start Date Expiration Date Visits Re quested Visits Authorized [id number] Closed 09/25/2022 12/24/2022 1 1 Reason Comments Physical preop clearance for surgeries on 11/07/22, 11/15/22 Reason Comments Occupational Therapy Reason Comments Established Patient Pain Specialty Diagnoses / Procedures Referred By Contact Referred To Contact [facility] Diagnoses Hand pain Procedures HAND PAIN Self [facility] [address] [place] [address] Referral ID Status Reason Start Date Expiration Date V isits Requested Visits Authorized [id number] Closed OON/Self Pay Override 09/11/2022 09/01/2023 1 [...] REAL TIME WITH IMAGE LIMITED Destiney Pendleton APRN.WEB CONTENT SPECIALIST [address] [place] [address] [facility] [address] [place] [address] Referral ID Status Reason Start Date Expiration Date V isits Requested Visits Authorized [id number] Closed Auto-Generate d Referral 09/28/2022 10/28/2023 1 1 Specialty Diagnoses / Procedures Referred By Contac t Referred To Contact [facility] Diagnoses Encounter for screening mammogram for high-risk patient Procedures mamograms screening Ifeoma Davis MD [address] [place] [address] [facility] [address] [place] [address] Referral ID Status Reason Start Date Expiration Date V isits Requested Visits Authorized [id number] Closed OON/Self Pay Override 09/11/2022 09/01/2023 1 1 Reason Onset Date Comments Refill Request 07/23/2023 Reason Comments Glaucoma Follow Up 6 month HVF 24-2 OU & MAC OCT Reason Onset Date Comments [facility] Navigation Outreach 10/04/2023 [place] Care Gaps Reason Onset Date Comments [facility] Navigation Outreach 10/25/2023 [place] AWV Reason Onset Date Comments Refill Request [...] Reason Comments Letter Reason Onset Date Comments [facility] Navigation Outreach 05/29/2024 Med adherence Reason Comments F/U 6 months needs some home heal th care due to vision loss Reason Onset Date Comments [facility] Navigation Outreach 06/12/2024 Bradly CHAMORRO Reason Onset Date Comments [facility] Navigation Outreach 06/15/2024 Med Adherence Reason Comments Patient Question Reason Onset Date Comments Refill Request 06/29/2024 Reason Comments Headache TINOCO, bodyaches, fatig ue x 3 days Reason Comments Orders Reason Comments Fax Request Reason Comments Results Reason Onset Date Comments Population Health Navigation Outreach 08/10/2024 Bradly Javier PCSA Reason [...] Reason Comments Recheck 10/31/24 UA done at [facility], always tired Reason Comments Recheck [...] SLEEP 4/> ADDL BRIDGET ATTND POLYSOMNOGRAM Kimberley Ambroico, PACKING SUPERVISOR.WEB CONTENT SPECIALIST [address] [place] [address] Phone: tel: fax: [facility] [address] [place] [address] Phone: tel: fax: Referral ID Status Reason Start Date Expiration Date Visits Re quested Visits Authorized [id number] Closed 11/04/2024 09/01/2025 1 1 Reason Comments [...] Care Teams (unrecognized sec tion and content) Drug Abuse Resistance Education Officer Relationship Specialty Start Date End Date Ifeoma Davis MD [address] [facility] [place] [address] PCP - General Internal Medicine 12/07/14 Drug Abuse Resistance Education Officer Relationship Specialty Start Date End Date Ifeoma Davis MD [address] [facility] [place] [address] PCP - General Internal Medicine 12/07/14 Drug Abuse Resistance Education Officer Relationship Specialty Start Date End Date Ifeoma Davis MD [address] [facility] [place] [address] PCP - General Internal Medicine 12/07/14 Drug Abuse Resistance Education Officer Relationship Specialty Start Date End Date Ifeoma Davis MD [address] [facility] [place] [place] [address] PCP - General Internal Medicine 12/07/14 Drug Abuse Resistance Education Officer Relationship Specialty Start Date End Date Ifeoma Davis MD [address] [facility] [place] [place] [address] PCP - General Internal Medicine 12/07/14 Drug Abuse Resistance Education Officer Relationship Specialty Start Date End Date Ifeoma Davis MD [address] [facility] [place] [place] [address] PCP - General Internal Medicine 12/07/14 Drug Abuse Resistance Education Officer Relationship Specialty Start Date End Date Ifeoma Davis MD [address] [facility] [place] [place] [address] PCP - General Internal Medicine 12/07/14 Drug Abuse Resistance Education Officer Relationship Specialty Start Date End Date Ifeoma Davis MD [address] [facility] [place] [place] [address] PCP - General Internal Medicine 12/07/14 Drug Abuse Resistance Education Officer Relationship Specialty Start Date End Date Ifeoma Davis MD [address] [place] [address] PCP - General Internal Medicine 12/07/14 Drug Abuse Resistance Education Officer Relationship Specialty Start Date End Date Ifeoma Davis MD [address] [place] [address] PCP - General Internal Medicine 12/07/14 Drug Abuse Resistance Education Officer Relationship Specialty Start Date End Date Ifeoma Davis MD [address] [place] [address] PCP - General Internal Medicine 12/07/14 Drug Abuse Resistance Education Officer Relationship Specialty Start Date End Date Ifeoma Davis MD [address] [place] [address] PCP - General Internal Medicine 12/07/14 Drug Abuse Resistance Education Officer Relationship Specialty Start Date End Date Ifeoma Davis MD [address] [place] [address] PCP - General Internal Medicine 12/07/14 Drug Abuse Resistance Education Officer Relationship Specialty Start Date End Date Ifeoma Davis MD [address] [place] [address] PCP - General Internal Medicine 12/07/14 Drug Abuse Resistance Education Officer Relationship Specialty Start Date End Date Ifeoma Davis MD [address] [place] [address] PCP - General Internal Medicine 12/07/14 Drug Abuse Resistance Education Officer Relationship Specialty Start Date End Date Ifeoma Davis MD [address] [place] [address] PCP - General Internal Medicine 12/07/14 Drug Abuse Resistance Education Officer Relationship Specialty Start Date End Date Ifeoma Davis MD [address] [place] [address] PCP - General Internal Medicine 12/07/14 Drug Abuse Resistance Education Officer Relationship Specialty Start Date End Date Ifeoma Davis MD [address] [place] [address] PCP - General Internal Medicine 12/07/14 Drug Abuse Resistance Education Officer Relationship Specialty Start Date End Date Ifeoma Davis MD [address] [place] [address] PCP - General Internal Medicine 12/07/14 Drug Abuse Resistance Education Officer Relationship Specialty Start Date End Date Ifeoma Davis MD [address] [place] [address] PCP - General Internal Medicine 12/07/14 Drug Abuse Resistance Education Officer Relationship Specialty Start Date End Date Ifeoma Davis MD [address] [place] [address] PCP - General Internal Medicine 12/07/14 Drug Abuse Resistance Education Officer Relationship Specialty Start Date End Date Ifeoma Davis MD [address] [place] [address] PCP - General Internal Medicine 12/07/14 Drug Abuse Resistance Education Officer Relationship Specialty Start Date End Date Ifeoma Davis MD [address] [place] [address] PCP - General Internal Medicine 12/07/14 Drug Abuse Resistance Education Officer Relationship Specialty Start Date End Date Ifeoma Davis MD [address] [place] [address] PCP - General Internal Medicine 12/07/14 Drug Abuse Resistance Education Officer Relationship Specialty Start Date End Date Ifeoma Davis MD [address] [place] [address] PCP - General Internal Medicine 12/07/14 Drug Abuse Resistance Education Officer Relationship Specialty Start Date End Date Ifeoma Davis MD [address] [place] [address] PCP - General Internal Medicine 12/07/14 Drug Abuse Resistance Education Officer Relationship Specialty Start Date End Date Ifeoma Davis MD [address] [place] [place] [address] PCP - General Internal Medicine 12/07/14 Drug Abuse Resistance Education Officer Relationship Specialty Start Date End Date Ifeoma Davis MD [address] [facility] [place] [address] PCP - General Internal Medicine 12/07/14 Drug Abuse Resistance Education Officer Relationship Specialty Start Date End Date Ifeoma Davis MD [address] [place] [address] PCP - General Internal Medicine 12/07/14 Drug Abuse Resistance Education Officer Relationship Specialty Start Date End Date Ifeoma Davis MD [address] [place] [place] [address] PCP - General Internal Medicine 12/07/14 Drug Abuse Resistance Education Officer Relationship Specialty Start Date End Date Ifeoma Davis MD [address] [place] [place] [address] PCP - General Internal Medicine 12/07/14 Drug Abuse Resistance Education Officer Relationship Specialty Start Date End Date Ifeoma Davis MD [address] [place] [place] [address] PCP - General Internal Medicine 12/07/14 Drug Abuse Resistance Education Officer Relationship Specialty Start Date End Date Ifeoma Davis MD [address] [place] [place] [address] PCP - General Internal Medicine 12/07/14 Drug Abuse Resistance Education Officer Relationship Specialty Start Date End Date Ifeoma Davis MD [address] [place] [address] PCP - General Internal Medicine 12/07/14 Drug Abuse Resistance Education Officer Relationship Specialty Start Date End Date Ifeoma Davis MD [address] [place] [address] PCP - General Internal Medicine 12/07/14 Drug Abuse Resistance Education Officer Relationship Specialty Start Date End Date Ifeoma Davis MD [address] [place] [address] PCP - General Internal Medicine 12/07/14 Team Status: Active Member Role Status Dates Dr. Ifeoma Davis MD Family Provider Active Dr. Ifeoma Davis MD Primary Care Provider Active Team Status: Inactive Member Role Status Dates Dr. Ifeoma Davis MD Primary Care Provider Active CAREY VALLE Attending Provider, Referring Provide r Active Drug Abuse Resistance Education Officer Relationship Specialty Start Date End Date Ifeoma Davis MD [address] [place] [address] PCP - General Internal Medicine 12/07/14 Drug Abuse Resistance Education Officer Relationship Specialty Start Date End Date Ifeoma Davis MD [address] [place] [address] PCP - General Internal Medicine 12/07/14 Drug Abuse Resistance Education Officer Relationship Specialty Start Date End Date Ifeoma Davis MD [address] [place] [address] PCP - General Internal Medicine 12/07/14 Drug Abuse Resistance Education Officer Relationship Specialty Start Date End Date Ifeoma Davis MD [address] [place] [address] PCP - General Internal Medicine 12/07/14 Drug Abuse Resistance Education Officer Relationship Specialty Start Date End Date Ifeoma Davis MD [address] [place] [address] PCP - General Internal Medicine 12/07/14 Drug Abuse Resistance Education Officer Relationship Specialty Start Date End Date Ifeoma Davis MD [address] [place] [address] PCP - General Internal Medicine 12/07/14 Drug Abuse Resistance Education Officer Relationship Specialty Start Date End Date Ifeoma Davis MD [address] [facility] [place] [address] PCP - General Internal Medicine 12/07/14 Drug Abuse Resistance Education Officer Relationship Specialty Start Date End Date Ifeoma Davis MD [address] [place] [address] PCP - General Internal Medicine 12/07/14 Drug Abuse Resistance Education Officer Relationship Specialty Start Date End Date Ifeoma Davis MD [address] [place] [address] PCP - General Internal Medicine 12/07/14 Drug Abuse Resistance Education Officer Relationship Specialty Start Date End Date Ifeoma Davis MD [address] [place] [address] PCP - General Internal Medicine 12/07/14 Drug Abuse Resistance Education Officer Relationship Specialty Start Date End Date Ifeoma Davis MD [address] [place] [address] PCP - General Internal Medicine 12/07/14 Drug Abuse Resistance Education Officer Relationship Specialty Start Date End Date Ifeoma Davis MD [address] [place] [address] PCP - General Internal Medicine 12/07/14 Drug Abuse Resistance Education Officer Relationship Specialty Start Date End Date Ifeoma Davis MD [address] [place] [address] PCP - General Internal Medicine 12/07/14 Drug Abuse Resistance Education Officer Relationship Specialty Start Date End Date Ifeoma Davis MD [address] [place] [address] PCP - General Internal Medicine 12/07/14 Team [...] Pozo DO Attending Provider, Referring Provider Active Drug Abuse Resistance Education Officer Relationship Specialty Start Date End Date Ifeoma Davis MD [address] [place] [address] PCP - General Internal Medicine 12/07/14 Drug Abuse Resistance Education Officer Relationship Specialty Start Date End Date Ifeoma Davis MD [address] [place] [address] PCP - General Internal Medicine 12/07/14 Drug Abuse Resistance Education Officer Relationship Specialty Start Date End Date Ifeoma Davis MD [address] [place] [address] PCP - General Internal Medicine 12/07/14 Drug Abuse Resistance Education Officer Relationship Specialty Start Date End Date Ifeoma Davis MD [address] [place] [address] PCP - General Internal Medicine 12/07/14 Drug Abuse Resistance Education Officer Relationship Specialty Start Date End Date Ifeoma Davis MD [address] [place] [address] PCP - General Internal Medicine 12/07/14 Drug Abuse Resistance Education Officer Relationship Specialty Start Date End Date Ifeoma Davis MD [address] [place] [address] PCP - General Internal Medicine 12/07/14 Drug Abuse Resistance Education Officer Relationship Specialty Start Date End Date Ifeoma Davis MD [address] [place] [address] PCP - General Internal Medicine 12/07/14 Drug Abuse Resistance Education Officer Relationship Specialty Start Date End Date Ifeoma Davis MD [address] [place] [address] PCP - General Internal Medicine 12/07/14 Drug Abuse Resistance Education Officer Relationship Specialty Start Date End Date Ifeoma Davis MD [address] [place] [address] PCP - General Internal Medicine 12/07/14 Drug Abuse Resistance Education Officer Relationship Specialty Start Date End Date Ifeoma Davis MD [address] [place] [address] PCP - General Internal Medicine 12/07/14 Drug Abuse Resistance Education Officer Relationship Specialty Start Date End Date Ifeoma Davis MD [address] [place] [address] PCP - General Internal Medicine 12/07/14 Drug Abuse Resistance Education Officer Relationship Specialty Start Date End Date Ifeoma Davis MD [address] [place] [address] PCP - General Internal Medicine 12/07/14 Drug Abuse Resistance Education Officer Relationship Specialty Start Date End Date Ifeoma Davis MD [address] [place] [address] PCP - General Internal Medicine 12/07/14 Drug Abuse Resistance Education Officer Relationship Specialty Start Date End Date Ifeoma Davis MD [address] [place] [address] PCP - General Internal Medicine 12/07/14 Drug Abuse Resistance Education Officer Relationship Specialty Start Date End Date Ifeoma Davis MD [address] [place] [address] PCP - General Internal Medicine 12/07/14 Drug Abuse Resistance Education Officer Relationship Specialty Start Date End Date Ifeoma Davis MD [address] [place] [address] PCP - General Internal Medicine 12/07/14 Virginia Avalos PA-C [address] [place] [address] [phone] [facility] 08/09/24 David Anna APRN.WEB CONTENT SPECIALIST [address] [place] [address] [facility] 08/09/24 Domitila Knapp PA-C [address] [place] [address] [facility] 08/09/24 Drug Abuse Resistance Education Officer Relationship Specialty Start Date End Date Ifeoma Davis MD [address] [place] [address] PCP - General Internal Medicine 12/07/14 Virginia Avalos PA-C [address] [place] [address] [phone] [facility] 08/09/24 David Anna APRN.WEB CONTENT SPECIALIST [address] [place] [address] [facility] 08/09/24 Domitila Knapp PA-C [address] [place] [address] [facility] 08/09/24 Drug Abuse Resistance Education Officer Relationship Specialty Start Date End Date Ifeoma Davis MD [address] [place] [address] PCP - General Internal Medicine 12/07/14 Virginia Avalos PA-C [address] [place], [place] [phone] [facility] 08/09/24 David Anna APRN.WEB CONTENT SPECIALIST [address] [place] [address] [facility] 08/09/24 Domitila Knapp PA-C [address] [place] [address] [facility] 08/09/24 Drug Abuse Resistance Education Officer Relationship Specialty Start Date End Date Ifeoma Davis MD [address] [place] [address] PCP - General Internal Medicine 12/07/14 Virginia Avalos PA-C [address] [place] [address] [facility] 08/09/24 David Anna APRN.WEB CONTENT SPECIALIST [address] [place] [address] [facility] 08/09/24 Domitila Knapp PA-C [address] [place] [address] [facility] 08/09/24 Drug Abuse Resistance Education Officer Relationship Specialty Start Date End Date Ifeoma Davis MD [address] [place] [address] PCP - General Internal Medicine 12/07/14 Virginia Avalos PA-C [address] [place], [place] 6140405 [facility] 08/09/24 David Anna APRN.WEB CONTENT SPECIALIST [address] [place] [address] [facility] 08/09/24 Domitila Knapp PA-C [address] [place] [address] [facility] 08/09/24 Drug Abuse Resistance Education Officer Relationship Specialty Start Date End Date Ifeoma Davis MD [address] [place] [address] PCP - General Internal Medicine 12/07/14 Virginia Avalos PA-C [address] [place] [address] [facility] 08/09/24 David Anna APRN.WEB CONTENT SPECIALIST [address] [place] [address] [facility] 08/09/24 Domitila Knapp PA-C [address] [place] [address] [facility] 08/09/24 Drug Abuse Resistance Education Officer Relationship Specialty Start Date End Date Ifeoma Davis MD [address] [place] [address] PCP - General Internal Medicine 12/07/14 Virginia Avalos PA-C [address] [place] [address] [phone] [facility] 08/09/24 David Anna APRN.WEB CONTENT SPECIALIST [address] [place] [address] [facility] 08/09/24 Domitila Knapp PA-C [address] [place] [address] [facility] Drug Abuse Resistance Education Officer Relationship Specialty Start Date End Date Ifeoma Davis MD [address] [place] [address] PCP - General Internal Medicine 12/07/14 Virginia Avalos PA-C [address] [place] [address] [facility] 08/09/24 David Anna, PACKING SUPERVISOR.WEB CONTENT SPECIALIST [address] [place] [address] [facility] 08/09/24 Domitila Knapp PA-C [address] [place] [address] [facility] 08/09/24 Drug Abuse Resistance Education Officer Relationship Specialty Start Date End Date Ifeoma Davis MD [address] [facility] [place] [address] PCP - General Internal Medicine 12/07/14 Virginia Avalos PA-C [address] [place] [address] [facility] 08/09/24 David Anna APRN.WEB CONTENT SPECIALIST [address] [facility] [place] [address] [facility] 08/09/24 Domitila Knapp PA-C [address] [facility] [place] [address] [facility] 08/09/24 Drug Abuse Resistance Education Officer Relationship Specialty Start Date End Date Ifeoma Davis MD [address] [facility] [place] [address] PCP - General Internal Medicine 12/07/14 Virginia Avalos PA-C [address] [place] [address] [facility] 08/09/24 David Anna, MURTAZA.WEB CONTENT SPECIALIST [address] [facility] [place] [address] [facility] 08/09/24 Domitila Knapp PA-C [address] [facility] [place] [address] [facility] 08/09/24 Drug Abuse Resistance Education Officer Relationship Specialty Start Date End Date Ifeoma Davis MD [address] [facility] [place] [address] PCP - General Internal Medicine 12/07/14 Virginia Avalos PA-C [address] [place] [address] [facility] 08/09/24 David Anna APRN.WEB CONTENT SPECIALIST [address] [place] [address] [facility] 08/09/24 Domitila Knapp PA-C [address] [place] [address] [facility] 08/09/24 Drug Abuse Resistance Education Officer Relationship Specialty Start Date End Date Ifeoma Davis MD [address] [place] [address] PCP - General Internal Medicine 12/07/14 Virginia Avalos PA-C [address] [place] [address] [facility] 08/09/24 David Anna APRN.WEB CONTENT SPECIALIST [address] [place] [address] [facility] 08/09/24 Domitila Knapp PA-C [address] [place] [address] [facility] 08/09/24 Drug Abuse Resistance Education Officer Relationship Specialty Start Date End Date Ifeoma Davis MD [address] [place] [address] PCP - General Internal Medicine 12/07/14 Virginia Avalos PA-C [address] [place] [address] [facility] 08/09/24 David Anna APRN.WEB CONTENT SPECIALIST [address] [place], [place] 470081 [facility] 08/09/24 Domitila Knapp PA-C [address] [place], [place] 354111 [facility] 08/09/24 Team Status: Inactive Member Role [...] November 24, 2024 End: November 24, 2024 SHIPPING AND RECEIVING MATERIAL HANDLER. Allie Prakash Attending Provider Active Star t: November 24, 2024 End: November 24, 2024 SHIPPING AND RECEIVING MATERIAL HANDLER. Allie Prakash Referring Provider Active Star t: November 24, 2024 End: November 24, 2024 Drug Abuse Resistance Education Officer Relationship Specialty Start Date End Date Ifeoma Davis MD [address] [place], [place] 048481 PCP - General Internal Medicine 12/07/14 David Anna APRN.WEB CONTENT SPECIALIST [address] [facility], [place] [address] [facility] 08/09/24 Drug Abuse Resistance Education Officer Relationship Specialty Start Date End Date Ifeoma Davis MD [address] [place], [place] 896851 PCP - General Internal Medicine 12/07/14 David Anna APRN.WEB CONTENT SPECIALIST [address] [facility], [place] [address] [facility] 08/09/24 Drug Abuse Resistance Education Officer Relationship Specialty Start Date End Date Ifeoma Davis MD [address] [facility], [place] [address] PCP - General Internal Medicine 12/07/14 David Anna APRN.WEB CONTENT SPECIALIST [address] [place], [place] 605851 [facility] 08/09/24 Drug Abuse Resistance Education Officer Relationship Specialty Start Date End Date Ifeoma Davis MD [address] [place], [place] 967121 PCP - General Internal Medicine 12/07/14 Virginia Avalos PA-C [address] [place] [address] [facility] 08/09/24 11/22/24 David Anna APRN.WEB CONTENT SPECIALIST [address] [place] [address] [facility] 08/09/24 Domitila Knapp PA-C [address] [place] [address] [facility] 08/09/24 11/22/24 Drug Abuse Resistance Education Officer Relationship Specialty Start Date End Date Ifeoma Davis MD [address] [place], [place] 983251 PCP - General Internal Medicine 12/07/14 David Anna APRN.WEB CONTENT SPECIALIST [address] [place] [address] [facility] 08/09/24 Drug Abuse Resistance Education Officer Relationship Specialty Start Date End Date Ifeoma Davis MD [address] [place] [address] PCP - General Internal Medicine 12/07/14 David Anna APRN.WEB CONTENT SPECIALIST [address] [place] [address] [facility] 08/09/24 Drug Abuse Resistance Education Officer Relationship Specialty Start Date End Date Ifeoma Davis MD [address] [place] [address] PCP - General Internal Medicine 12/07/14 David Anna APRN.WEB CONTENT SPECIALIST [address] [place] [address] [facility] 08/09/24 Drug Abuse Resistance Education Officer Relationship Specialty Start Date End Date Ifeoma Davis MD [address] [place] [address] PCP - General Internal Medicine 12/07/14 Virginia Avalos PA-C [address] [place] [address] [facility] 08/09/24 11/22/24 David Anna APRN.WEB CONTENT SPECIALIST [address] [place] [address] [facility] 08/09/24 Domitila Knapp PA-C [address] [place], [place] 844781 [facility] 08/09/24 11/22/24 Drug Abuse Resistance Education Officer Relationship Specialty Start Date End Date Ifeoma Davis MD [address] [facility] [place] [address] PCP - General Internal Medicine 12/07/14 Older, MURTAZA Jarrett.WEB CONTENT SPECIALIST [address] [place] [address] [facility] 08/09/24 Team Status: Active Member [...] November 24, 2024 End: November 24, 2024 SHIPPING AND RECEIVING MATERIAL HANDLERJermaine Prakash Attending Provider Active Star t: November 24, 2024 End: November 24, 2024 SHIPPING AND RECEIVING MATERIAL HANDLERJermaine Prakash Referring Provider Active Star t: November [...] March 10, 2025 End: March 10, 2025 Drug Abuse Resistance Education Officer Relationship Specialty Start Date End Date Ifeoma Davis MD [address] [facility] [place] [address] PCP - General Internal Medicine 12/07/14 David Anna, PACKING SUPERVISOR.WEB CONTENT SPECIALIST [address] [facility] [place] [address] [facility] 08/09/24 Drug Abuse Resistance Education Officer Relationship Specialty Start Date End Date Ifeoma Davis MD [address] [facility] [place] [address] PCP - General Internal Medicine 12/07/14 David Anna, PACKING SUPERVISOR.WEB CONTENT SPECIALIST [address] [facility] [place] [address] [facility] 08/09/24 Drug Abuse Resistance Education Officer Relationship Specialty Start Date End Date Ifeoma Davis MD [address] [facility] [place] [address] PCP - General Internal Medicine 12/07/14 David Anna, PACKING SUPERVISOR.WEB CONTENT SPECIALIST [address] [facility] [place] [address] [facility] 08/09/24 Drug Abuse Resistance Education Officer Relationship Specialty Start Date End Date Ifeoma Davis MD [address] [facility] [address] PCP - General Internal Medicine 12/07/14 David Anna, PACKING SUPERVISOR.WEB CONTENT SPECIALIST [address] [place] [address] [facility] 08/09/24 Drug Abuse Resistance Education Officer Relationship Specialty Start Date End Date Ifeoma Dvais MD [address] [place] [address] PCP - General Internal Medicine 12/07/14 David Anna, PACKING SUPERVISOR.WEB CONTENT SPECIALIST [address] [place] [address] [facility] 08/09/24 Drug Abuse Resistance Education Officer Relationship Specialty Start Date End Date Ifeoma Davis MD [address] [place] [address] PCP - General Internal Medicine 12/07/14 David Anna, PACKING SUPERVISOR.WEB CONTENT SPECIALIST [address] [place] [address] [facility] 08/09/24 Drug Abuse Resistance Education Officer Relationship Specialty Start Date End Date Ifeoma Davis MD [address] [place] [address] PCP - General Internal Medicine 12/07/14 Dvaid Anna, PACKING SUPERVISOR.WEB CONTENT SPECIALIST [address] [place] [address] [facility] 08/09/24 Drug Abuse Resistance Education Officer Relationship Specialty Start Date End Date Ifeoma Davis MD [address] [place] [address] PCP - General Internal Medicine 12/07/14 Virginia Avalos PA-C [address] [place] [address] [facility] 08/09/24 11/22/24 David Anna APRN.WEB CONTENT SPECIALIST [address] [place], [place] 387401 [facility] 08/09/24 Domitila Knapp PA-C [address] [place], [place] 030351 [facility] 08/09/24 11/22/24 Drug Abuse Resistance Education Officer Relationship Specialty Start Date End Date Ifeoma Davis MD [address] [place], [place] 741891 PCP - General Internal Medicine 12/07/14 Virginia Avalos PA-C [address] [place] [address] [facility] 08/09/24 11/22/24 David Anna, PACKING SUPERVISOR.WEB CONTENT SPECIALIST [address] [place], [place] 128421 [facility] 08/09/24 Domitila Knapp PA-C [address] [place] [address] [facility] 08/09/24 11/22/24 Team Status: Inactive Member [...] April 16, 2025 End: April 16, 2025 Drug Abuse Resistance Education Officer Relationship Specialty Start Date End Date Ifeoma Davis MD [address] [place] [address] PCP - General Internal Medicine 12/07/14 David Anna APRN.CNP [address] [place] [address] [facility] 08/09/24 Drug Abuse Resistance Education Officer Relationship Specialty Start Date End Date Ifeoma Davis MD [address] [place] [address] PCP - General Internal Medicine 12/07/14 David Anna, PACKING SUPERVISOR.WEB CONTENT SPECIALIST [address] [facility] [place] [address] [facility] 08/09/24 Drug Abuse Resistance Education Officer Relationship Specialty Start Date End Date Ifeoma Davis MD [address] [facility], [place] [address] PCP - General Internal Medicine 12/07/14 David Anna, PACKING SUPERVISOR.WEB CONTENT SPECIALIST [address] [place] [address] [facility] 08/09/24 Team Status: Active Member [...] End: June 29, 2025 Dr. Renato Hanley DO Emergency Department Physician A ctive Start: June 29, 2025 End: June 29, 2025 Team Status: Inactive Member Role/Relationship Status [...] 2025 End: June 17, 2025 Team Status: Inactive Member Role/Relationship Status Dates Dr. Ifeoma Davis MD Primary care physician Active Start: June 21, 2025 End: June 21, 2025 Dr. Phillip Pozo DO Attending physician Active Start: June 21, 2025 End: June 21, 2025 Dr. Phillip Pozo DO Referring Provider Active Start: June 21, 2025 End: June 21, 2025 Team Status: Inactive Member Role/Relationship Status Dates Dr. Ifeoma Davis MD Primary care physician Active Start: June 23, 2025 End: June 23, 2025 Dr. Geovanni Sorto DO Attending physician Active Start: June 23, 2025 End: June 23, 2025 Dr. Geovanni Sorto DO Emergency Department Physician Active Start: June 23, 2025 End: June 23, 2025 Team Status: Inactive Member Role/Relationship Status Dates Dr. Ifeoma Davis MD Primary care physician Active Start: June 29, 2025 End: June 29, 2025 Dr. Renato Hanley DO Attending physician Active Start: June 29, 2025 End: June 29, 2025 Dr. Renato Hanley DO Emergency Department Physician A ctive Start: June 29, 2025 End: June 29, 2025 Team Status: Inactive Member Role/Relationship Status Dates Dr. Ifeoma Davis MD Primary care physician Active Start: July 10, 2025 End: July 10, 2025 Dr. Renato Hanley DO Emergency Department Physician A ctive Start: July 10, 2025 End: July 10, 2025 Scheduled Active and Recently Administ ered [...] PRN, Starting on Sat06/25/22 at 1013, Until Sat22 at 0303, Intraprocedure 1013 (Given - Provid er: Jonathon Eugene MD) lidocaine HCl (PF) 20 mg/mL (2 %) injection X (OR/PROCEDURE) PRN, Starting on Sat06/25/22 at 1004, Until Tu06/26/22 at 0303, Intraprocedure 1004 (Given - Provid er: Jonathon Eugene MD) moxifloxacin intraocular injection 5 mg/mL (PF) X (OR/PROCEDURE) PRN, Starting on Sat06/25/22 at 1125, Until Tu06/26/22 at 0303, Intraprocedure 1125 (Given - Provid er: Jonathon Eugene MD) [id number] 3.5 mg/g-10,000 unit/g-0.1 % (POLYDEX) X (OR/PROCEDURE) [...] 0303, Intraprocedure 1013 (Given - Provid er: Joanthon Eugene MD) sodium hyaluronate 10 mg/mL injection [...] section and content) DATE CREATED AUTHOR 11/01/2022 [facility] DATE CREATED AUTHOR AUTHOR'S ORGANIZ ATION 11/09/2022 [facility] DATE CREATED AUTHOR AUTHOR'S ORGANIZ ATION 01/08/2025 [facility] DATE CREATED AUTHOR AUTHOR'S ORGANIZ ATION 07/12/2025 [facility] DATE CREATED AUTHOR AUTHOR'S ORGANIZ ATION 07/14/2025 [facility] Goals (unrecognized section and content) Goals [...] BE BASED ON THE PRIMARY CLINICAL RECORDS. [employer] [facility]. provides no warranty or guarantee of the accuracy or completeness of information in this document.
[2025-07-25] MEDS: DiphenhydrAMINE 50 MG/ML Syringe 25 MG IV (16:30)
[2025-07-25] MEDS: 0.9% Normal Saline (1000mL) 1,000 ML 1000 ML IV (16:33)
[2025-07-25 18:47] VITALS: BP 106/63; PULSE 80; RESP 16
[2025-07-25 19:47] VITALS: BP 104/60; PULSE 74; RESP 15; TEMP 36.4; O2SAT 100
== END 2025-07-25 19:48 | disposition home or self-care (01) ==
PROVIDERS: Emergency Provider Emergency Medicine; PCP Internal Medicine; Visit Provider Emergency Medicine
DX: R51.9 Headache, unspecified (principal); E78.00 Pure hypercholesterolemia, unspecified; K21.9 Gastro-esophageal reflux disease without esophagitis; Z79.899 Other long term (current) drug therapy; Z79.82 Long term (current) use of aspirin
CPT/HCPCS: 96361; 96372; 96374; 96375; 99283; A4216; J3030

== ENCOUNTER 2025-08-02 17:02 | Emergency (ER) | payer MEDICARE, MEDICAID, SELFPAY ==
[2025-08-02 17:02] VITALS: BP 115/75; PULSE 97; RESP 16; TEMP 36.4; O2SAT 100
--- NOTE | 2025-08-02 17:55 | ED.VIS.BACK ---
HPI History of Present Illness Chief Complaint: Back Detail of Chief Complaint: Left low back pain and pain over the left greater trochanteric area. Informant: patient Onset/Context/Timing Onset: Month(s) Context: Gradual Onset Chronic pain exacerbated by: Certain movements and walking Timing: Intermittent Quality: Dull and Aching Location: Lumbar and Left Leg Current Severity: Mild Maximum Severity: Severe Worsened by: improves with Movement, Ambulation and Lifting Relieved by: Nothing Associated Symptoms Associated Symptoms: - (Denies foot drop. Denies buckling of her knee going up or down steps. She has had no recent dental procedure.); Negative for Numbness, Tingling, Radiation to Right Leg, Radiation to Left Leg, Fever, Abdominal Pain, Dysuria, Unable to Ambulate, Unable to Transfer, Urinary Retention, Urinary Incontinence, Constipation or Fecal Incontinence Narrative Narrative: Patient is a 55-year-old woman. She has seen Dr. Phillip Smith. His office note authored on March 10 was reviewed. Patient saw him for left hip pain. Is an pression/assessment that time was greater trochanteric bursitis of the left hip, degenerative joint disease of the left hip (osteoarthritis type primary and lumbar spondylosis. She has no neurologic symptoms. She was seen in the ER by Dr. 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 There was good collateral flow on the left. Patient denies fever, chills night sweats. She has had no recent procedure. She denies weight gain or weight loss. There is no history of direct trauma. Prior similar symptoms: Yes and With Prior Back Pain Recent Illness/Hospitalization: No PFSH PFSH Medical History PXE (pseudoxanthoma elasticum) Wears glasses Depression Anxiety High cholesterol Ambulates with cane GERD (gastroesophageal reflux disease) Non-smoker Hip arthritis Degenerative scoliosis Lumbar radiculopathy Spondylolisthesis History of trigger finger Fibromyalgia Restless legs Hot flashes Legal blindness of both eyes as defined in [place] PXE (pseudoxanthoma elasticum) Hypertension Home Medications ?Medication ?Instructions ?Recorded ?Last Taken ?Type atorvastatin 40 mg tablet 40 mg PO QHS HLD 01/17/17 08/01/25 History omeprazole 20 mg capsule,delayed 20 mg PO DAILY GERD 11/20/21 08/02/25 History release amlodipine 2.5 mg tablet 2.5 mg PO QDAY HTN 12/09/24 08/02/25 History aspirin 81 mg tablet,delayed 81 mg PO QDAY HEART HEALTH 12/09/24 08/02/25 History release (Adult Low Dose Aspirin) escitalopram oxalate 10 mg tablet 10 mg PO QDAY ANXIETY 12/09/24 08/02/25 History estradiol 0.1 mg/24 hr semiweekly 1 patch transdermal QWEEK HORMONE 12/09/24 07/29/25 History transdermal patch (Darling) REPLACEMENT lisinopril 10 1 tab PO QDAY HTN 12/09/24 08/02/25 History mg-hydrochlorothiazide 12.5 mg tablet magnesium 200 mg tablet 200 mg PO QDAY SUPPLEMENT 12/09/24 08/02/25 History cevimeline 30 mg capsule 1 cap PO DAILY DRY MOUTH 06/11/25 08/01/25 History cholecalciferol (vitamin D3) 50 50 mcg PO DAILY SUPPLEMENT 06/11/25 08/02/25 History mcg (2,000 unit) capsule (Vitamin D3) bupropion HCl 150 mg 24 hr tablet, 150 mg PO DAILY 06/17/25 08/02/25 History extended release clopidogrel 75 mg tablet (Plavix) 75 mg PO DAILY #30 tabs 06/17/25 08/02/25 Rx trazodone 100 mg tablet 100 mg PO QHS 06/17/25 08/01/25 History diphenhydramine HCl 25 mg capsule 50 mg PO UD 08/02/25 08/01/25 History fluticasone propionate 50 2 spray intranasal DAILY 08/02/25 08/01/25 History mcg/actuation nasal spray,suspension gabapentin 300 mg capsule 600 mg PO DAILY 08/02/25 08/02/25 History ketorolac 0.5 % eye drops 1 drp ophthalmic (eye) 4X/DAY 08/02/25 08/02/25 History potassium chloride 10 mEq 10 meq PO DAILY 08/02/25 08/02/25 History tablet,extended release Allergy/AdvReac Type Severity Reaction Status Date / Time hydrocodone bitartrate (From AdvReac Itching Verified 08/02/25 17:04 Vicodin) nitrofurantoin (From AdvReac Other Verified 08/02/25 17:04 Macrobid) nitrofurantoin AdvReac Other Verified 08/02/25 17:04 macrocrystalline (From Macrobid) propoxyphene (From AdvReac Other Verified 08/02/25 17:04 Darvocet-N) tramadol HCl (From Ultram) AdvReac Other Verified 08/02/25 17:04 Family History Father Lung cancer Mother COPD (chronic obstructive pulmonary disease) CVA (cerebral vascular accident) Son Myocardial infarction Other Breast cancer Ovarian cancer Surgical History History of eye surgery Status post glaucoma surgery S/P right knee arthroscopy S/P Social History household members: none housing: house Smoking Status: Never smoker alcohol intake: current alcohol intake frequency: holidays/special occasions only substance use type: does not use ROS ROS ED Constitutional Constitutional ED: Denies chills, fever(s), subjective, sweats or weight loss Eyes Eyes: Reports other Details: Patient has decreased vision. This may be a complication of the pseudoxanthoma elasticum. ENT ENT ED: Denies ear pain, rhinorrhea or sore throat Cardiovascular Cardiovascular: Denies chest pain or palpitations Respiratory/Chest Respiratory/Chest: Denies dyspnea or dyspnea on exertion Gastrointestinal Gastrointestinal: Reports other Details: No incontinence of stool or constipation. ; Denies abdominal pain, constipation, nausea or vomiting Genitourinary Genitourinary ED: Reports other Details: No incontinence of urine or retention. ; Denies dysuria, hematuria or urinary frequency Musculoskeletal Musculoskeletal: Reports back pain and other Details: Pain left greater trochanteric area ; Denies arthralgias, myalgias or neck pain Integumentary Denies rash Neurologic Neurologic: Denies headache(s), paresthesias or weakness Psychiatric Psychiatric: Denies anxiety Endocrine Endocrinology: Denies cold intolerance or heat intolerance Hematologic/Lymphatic Hematologic/Lymphatic: Denies easy bleeding or easy bruising EXAM Physical Exam Const Vital Signs: 08/02/25 17:02 08/02/25 19:02 Temperature 97.6 F L Temperature Source Temporal Pulse Rate 97 78 Respiratory Rate 16 Blood Pressure 115/75 104/70 Blood Pressure Mean 88 81 Pulse Ox 100 100 Oxygen Delivery Method Room Air Room Air Positive well nourished and well developed General Appearance ED: well developed and NAD HEENT Reports moist mucous membranes HEENT Narrative: Head is atraumatic normocephalic. Ears normal. Nares patent. Eyes PERRL and EOMs intact bilaterally General Eye ED: Yes other Other Details: Patient's had lens surgery. She has also had surgery due to hemorrhages. ; Negative for pale conjunctiva or scleral icterus Neck no lymphadenopathy, supple and no JVD Cardio regular rate, regular rhythm, S1 normal heart sound, S2 normal heart sound and no murmurs GI normal to inspection, nondistended, normoactive bowel sounds, soft to palpation, non-distended and no masses; Negative for non-tender Palpation: tender epigastric and LUQ Back/Spine normal to inspection Back/Spine Narrative: Pain palpation lower lumbar region, midline. Patella ankle reflex are 1+. There is no clonus or Babinski sign noted. Sensation L3-S1 is intact. EHLs intact. Has 5/5 strength in plantar dorsiflexion of her foot. DP and PT pulse are palpable and symmetric. Vitaliy Jose 4 test causes her pain lateral left ankle. Lumbar Spine / Lower Back: ROM limited and straight leg raise negative bilaterally Extremity normal to inspection and no clubbing, cyanosis or edema Extremity Narrative: Tenderness over the left greater trochanteric bursa. There is no fluctuance, warmth or induration. General Extremety ED: Negative for edema General Extremity: Negative for edema Neuro oriented x3 and no sensory deficits noted Sensorium / Orientation: alert Deep Tendon Reflexes: Rt Patellar (L4): 1+, Lt Patellar (L4): 1+, Rt Ankle (S1): 1+ and Lt Ankle (S1): 1+ Deep Tendon Reflexes Back: Rt Patellar (L4): 1+, Lt Patellar (L4): 1+, Rt Ankle (S1): 1+ and Lt Ankle (S1): 1+ Plantar Reflex: Downgoing: bilateral Psych mental status grossly normal Skin no rashes or lesions noted and no wounds MDM MDM MDM Narrative Medical decision making narrative: Patient with degenerative disc disease and issues with her left hip due to primary osteoarthritis and bursitis. Based on patient's allergies she was treated with 50 mg of ketorolac and 4 mg of morphine for her pain. Will reassess. In my opinion since she has had recent MRI of her back, imaging of her hip there is no indication to repeat this since there is no history of trauma or any change other than the pain is slightly worse. Patient was reassessed at 1932. Patient complained of occipital headache. She would like to be able to go home. Will give her oral meds and discharge. Her hip and back pain have improved markedly. Treatment and Re-Evaluation Narrative: Will treat with p.o. Benadryl and Reglan. Discharge Plan Triage Chief Complaint: Back ED Provider: Juan Manuel Turpin Dx/Rx/DC Orders Clinical Impression: Osteoarthritis of left hip, Lumbar spondylosis, Occipital headache Instructions: Understanding Headache Pain, ED Degenerative Disk Disease, ED Osteoarthritis Prescriptions: No Action aspirin [Adult Low Dose Aspirin] 81 mg tablet,delayed release (DR/EC) 81 mg PO QDAY lisinopril-hydrochlorothiazide 10-12.5 mg tablet 1 tab PO QDAY amlodipine 2.5 mg tablet 2.5 mg PO QDAY estradiol [Darling] 0.1 mg/24 hr patch semiweekly 1 patch transdermal QWEEK escitalopram oxalate 10 mg tablet 10 mg PO QDAY magnesium 200 mg tablet 200 mg PO QDAY atorvastatin 40 MG tablet 40 mg PO QHS omeprazole 20 mg capsule,delayed release(DR/EC) 20 mg PO DAILY trazodone 100 mg tablet 100 mg PO QHS bupropion HCl 150 mg tablet extended release 24 hr 150 mg PO DAILY clopidogrel [Plavix] 75 mg tablet 75 mg PO DAILY Qty: 30 0RF cholecalciferol (vitamin D3) [Vitamin D3] 50 mcg (2,000 unit) capsule 50 mcg PO DAILY cevimeline 30 mg capsule 1 cap PO DAILY Patient Comments: takes qod diphenhydramine HCl 25 mg capsule 50 mg PO UD gabapentin 300 mg capsule 600 mg PO DAILY potassium chloride 10 mEq tablet extended release 10 meq PO DAILY ketorolac 0.5 % drops 1 drp ophthalmic (eye) 4X/DAY fluticasone propionate 50 mcg/actuation spray,suspension 2 spray INTRANASAL DAILY Primary Care Provider: Ifeoma Mustafa Referrals: Ifeoma Mustafa MD [Primary Care Provider, Internal Medicine] - As Needed Print Language: [place] Disposition Disposition: Home, Self Care
[2025-08-02 19:02] VITALS: BP 104/70; PULSE 78; O2SAT 100
[2025-08-02 19:39] VITALS: BP 104/70; PULSE 78; RESP 16; TEMP 36.4; O2SAT 100
== END 2025-08-02 19:55 | disposition home or self-care (01) ==
PROVIDERS: Emergency Provider Emergency Medicine; PCP Internal Medicine; Visit Provider Emergency Medicine
DX: M16.12 Unilateral primary osteoarthritis, left hip (principal); R51.9 Headache, unspecified; E78.00 Pure hypercholesterolemia, unspecified; M70.62 Trochanteric bursitis, left hip; M47.816 Spondylosis without myelopathy or radiculopathy, lumbar region; G89.29 Other chronic pain; K21.9 Gastro-esophageal reflux disease without esophagitis; I10 Essential (primary) hypertension
CPT/HCPCS: 96374; 96375; 99282; A4216; J2405

== ENCOUNTER 2025-08-07 13:43 | Emergency (ER) | payer MEDICARE, MEDICAID, SELFPAY ==
[2025-08-07 13:45] VITALS: BP 98/66; PULSE 92; RESP 16; TEMP 36.3; O2SAT 98
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
--- OUTSIDE RECORDS SUMMARY | 2025-08-07 14:29 | XMS RPT_ITS | CCD ---
Author Organization [facility] Care Team Providers Care Poultry Tender Name Role Phone Pennie Davis MD Primary Care Provider STALKER, WOLF Referring Unavailable SUSAN, PENNIE Primary Care Unavailable STALKER, WOLF Referring Unavailable PENNIE DAVIS Primary Care Unavailable STALKER, WOLF Referring Unavailable PENNIE DAVIS Primary Care Unavailable Pennie Davis MD Primary Care Provider JONATHON EUGENE Admitting Unavailable JONATHON EUGENE Attending Unavailable PENNIE DAVIS Primary Care Unavailable MASSIMO ROBERTS Admitting Unavailable MASSIMO ROBERTS Attending Unavailable PENNIE DAVIS Primary Care Unavailable Dr. Pennie Davis Primary Care Provider Dr. Pennie Davis Referring Provider Dr. Phillip Pozo Attending Provider Dr. 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 Pennie Davis MD Primary Care Provider Dr. Edgar Beltran MD Attending Provider NP. Sona Prakash Attending Provider NP. Sona Prakash Referring Provider Virginia Avaols PA-C Unavailable Domitila Knapp PA-C Unavailable THORPE, KIMBERLEY Referring Unavailable GANTA, PENNIE Primary Care Unavailable Susan CORREIA, Dr. Dia Referring Provider [facility] DO, Dr. Fisher Attending Provider Susan CORREIA, Dr. Dia Primary Care Provider Susan CORREIA, Dr. Dia Referring Provider [facility] DO, Dr. Fisher Attending Provider Ruby CORREIA, Dr. Hernández Attending Provider Rakesh CORREIA, Dr. Rodriguez Attending Provider Susan CORREIA, Dr. Dia Primary Care Physician [facility] DO, Dr. Fisher Attending Physician Ruby CORREIA, Dr. Hernández Attending Physician Rakesh CORREIA, Dr. Rodriguez Attending Physician Rakesh CORREIA, Dr. Rodriguez Referring Provider Papi CORREIA, Dr. Zambrano Emergency Department Physician Papi CORREIA, Dr. Zambrano Attending Physician [facility] DO, Dr. Fisher Referring Provider Unglyudmila DO, Dr. Armstrong Attending Physician Wang DO, Dr. Armstrong Emergency Department Physici an [facility], Dr. Galarza Emergency Departmen t Physician Andelisha DO, Dr. Gross Emergency Department Physic marla Nazta, Pennie Primary Care Unavailable Geovanni Sorto Attending Unavailabl e Ganta, Pennie Primary Care Unavailable Renato Hanley Attending Unavailable Ganta, Pennie Primary Care Unavailable Renato Hanley Attending Unavailable Ganta, Pennie Primary Care Unavailable Ganta, Pennie Referring Unavailable Michael Cameron Attending Unavailable Ganta, Pennie Primary Care Unavailable Edgar Beltran Attending Unavailable Patti Piña Attending Unavailable Ganta, Pennie Primary Care Unavailable BorrusoPhillip Attending Unavailable Ganta, Pennie Primary Care Unavailable Borruso, Phillip Admitting Unavailable Phillip Pozo Referring Unavailable Pennie Davis Primary Care Unavailable Sona Prakash Referring Unavailable Sona Prakash Attending Unavailable Pennie Davis Primary Care Unavailable Juan Manuel Turpin Attending Unavailable Pennie Davis Primary Care Unavailable Start: [address] COLONOGRAPHY [facility] Start: 2014 FECAL OCCULT BLOOD FECAL OCCULT BLOOD [facility] Start: 2014 Screening for malignant neoplasm of colon [facility] Start: 2014 SIGMOIDOSCOPY SIGMOIDOSCOPY [facility] Start: 1988 Hepatitis B Vaccine (1 of 3 - 19+ 3-dose series) Hepatitis B Vaccine (1 of 3 - 19+ 3-dose series) [facility] Start: 1988 SHINGRIX VACCINE (1 of 2) SHINGRIX VACCINE (1 of 2) [facility] Start: 1988 Urine microalbumin profile [facility] Start: 1987 Anxiety Screening Anxiety Screening [facility] Start: 1987 BP CONTROLLED (<130/80) BP CONTROLLED (<130/80) [facility] Start: 1987 Depression Screening Depression Screening [facility] Start: 1987 HEPATITIS C SCREENING HEPATITIS C SCREENING [facility] Start: 1987 Hepatitis C screening Hepatitis C Screening [facility] Start: 1987 HIV SCREENING HIV SCREENING [facility] Start: 1987 HIV screening HIV Screening [facility] Start: 1981 COVID-19 VACCINE (1) COVID-19 VACCINE (1) [facility] Start: 1975 PNEUMOCOCCAL (1 - PCV) PNEUMOCOCCAL (1 - PCV) [facility] Start: 1974 COVID-19 VACCINE (#1) COVID-19 VACCINE (#1) [facility] Start: 1969 COVID-19 VACCINE (#1) COVID-19 VACCINE (#1) [facility] Start: 1969 HEPATITIS B (1 of 3 - 3-dose series) HEPATITIS B (1 of 3 - 3-dose series) [facility] Start: 1969 Hepatitis B Vaccine (1 of 3 - 3-dose series) Hepatitis B Vaccine (1 of 3 - 3-dose series) [facility] Bacteria identified in Urine by Culture BACTERIAL CULTURE, URINE Microbiology Routine Dysuria Ordered: 10/31/2024 [facility] Work Phone: Comment on above: Ordered: 10/31/2024 End: 04-30-2024 COLONOSCOPY DIAGNOSTIC COLONOSCOPY DIAGNOSTIC Endoscopy Routine Change in bowel habits 1 Occurrences starting 04/30/2023 until 04/30/2024 [facility] Work Phone: Comment on above: 1 Occurrences starting 04/30/2023 until 04/30/2024 CORNEAL TOPOGRAPHY A TLAS OU (BOTH EYES) CORNEAL TOPOGRAPHY ATLAS OU (BOTH EYES) OPHT Imaging Routine Nuclear sclerotic cataract of left eye 10/29/2022 1:[address] [facility] Work Phone: CORNEAL TOPOGRAPHY PENTACAM OU (BOTH EYES) CORNEAL TOPOGRAPHY PENTACAM OU (BOTH EYES) OPHT Imaging Routine Nuclear sclerotic cataract of left eye 10/29/2022 1:[address] [facility] Work Phone: COVID & INFLUENZA A/ B & RSV PCR, ROUTINE COVID & INFLUENZA A/B & RSV PCR, ROUTINE Microbiology Routine Close exposure to COVID-19 virus Ordered: 07/08/2024 [facility] Work Phone: Comment on above: Ordered: 07/08/2024 End: 07-12-2025 DBT Breast - bilateral screening GENOVEVA SCREENING W LILLY Radiology Routine Encounter for screening mammogram for malignant neoplasm of breast 1 Occurrences starting 06/12/2024 until 07/12/2025 [facility] Work Phone: Comment on above: 1 Occurrences starting 06/12/2024 until 07/12/2025 End: 10-28-2023 Diagnostic mammography computer-aided detcj uni EGNOVEVA DIAGNOSTIC RT Radiology Routine Abnormal mammogram 1 Occurrences starting 09/28/2022 until 10/28/2023 [facility] Work Phone: Comment on above: 1 Occurrences starting 09/28/2022 until 10/28/2023 ECG B/O W INTERP (ME D OFFICE) ECG B/O W INTERP (MED OFFICE) ECG Routine PXE (pseudoxanthoma elasticum) Ordered: 06/20/2022 [facility] Work Phone: Comment on above: Ordered: 06/20/2022 End: 10-16-2023 ECG COMPLETE ECG COMPLETE ECG Routine Gastroesophageal reflux disease with esophagitis, unspecified whether hemorrhage 1 Occurrences starting 10/16/2022 until 10/16/2023 [facility] Work Phone: Comment on above: 1 Occurrences starting 10/16/2022 until 10/16/2023 ECG COMPLETE ECG COMPLETE ECG 10/16/2022 2:[address] [facility] End: 04-30-2024 EGD DIAGNOSTIC EGD DIAGNOSTIC Endoscopy Routine Gastroesophageal reflux disease, unspecified whether esophagitis present 1 Occurrences starting 04/30/2023 until 04/30/2024 [facility] Work Phone: Comment on above: 1 Occurrences starting 04/30/2023 until 04/30/2024 EMG(NEURO/NI) EMG(NEURO/NI) EM G Routine Pain in both hands Ordered: 05/03/2022 [facility] Work Phone: Comment on above: Ordered: 05/03/2022 End: 04-25-2024 EMG(NEURO/NI) EMG(NEURO/NI) EMG Routine Numbness and tingling in right hand 1 Occurrences starting 04/25/2023 until 04/25/2024 [facility] Work Phone: Comment on above: 1 Occurrences starting 04/25/2023 until 04/25/2024 MG Breast Screening GENOVEVA SCREENIN G Radiology Routine Encounter for screening mammogram for breast cancer 10/10/2023 1:07 PM [facility] Work Phone: End: 01-22-2025 MG Breast Screening GENOVEVA SCREENING Radiology Routine Encounter for gynecological examination (general) (routine) without abnormal findings Encounter for screening mammogram for breast cancer 1 Occurrences starting 12/24/2023 until 01/22/2025 [facility] Work Phone: Comment on above: 1 Occurrences starting 12/24/2023 until 01/22/2025 MG Breast Screening GENOVEVA SCREENIN G Radiology Routine Encounter for gynecological examination (general) (routine) without abnormal findings Encounter for screening mammogram for breast cancer 10/21/2024 2:[address] 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 Work Phone: Comment on above: Ordered: 04/03/2022 OT PLAN OF CARE CERTIFICATION OT PLAN OF CARE CERTIFICATION Procedures Routine Difficulty with household tasks Impaired mobility and personal care Personal care impairment Complaints of difficulty with reading Blindness right eye category 3, blindness left eye category 4 Ordered: 09/19/2022 [facility] Comment on above: Ordered: 09/19/2022 PAP TEST PAP TEST Lab Rohan reynaga Encounter for gynecological examination (general) (routine) without abnormal findings Encounter for screening for human papillomavirus (HPV) Pap smear for cervical cancer screening 12/24/2023 1:43 PM EDT [facility] Patient Education [facility] Work Phone: End: 07-09-2025 Polysomnogram POLYSOMNOGRAM (PSG) Procedures Routine DAYSI (obstructive sleep apnea) 1 Occurrences starting 07/09/2024 until 07/09/2025 [facility] Work Phone: Comment on above: 1 Occurrences starting 07/09/2024 until 07/09/2025 End: 10-08-2025 Polysomnogram POLYSOMNOGRAM (PSG) Procedures Routine Snoring Excessive daytime sleepiness Non-restorative sleep PLMD (periodic limb movement disorder) Primary hypertension 1 Occurrences starting 10/08/2024 until 10/08/2025 [facility] Work Phone: Comment on above: 1 Occurrences starting 10/08/2024 until 10/08/2025 End: 07-28-2023 Radiologic exam chest 2 views XR CHEST 2V FRONTAL/LAT Radiology Routine Acute cough 1 Occurrences starting 06/28/2022 until 07/28/2023 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 Work Phone: Comment on above: 1 Occurrences starting 12/04/2021 until 01/03/2023 Tdap vaccine 7 yrs/> im TDAP VAC CINE, AGE 7+ YR (ADACEL, BOOSTRIX) Immunization/Injection Routine Need for vaccination Ordered: 03/01/2025 [facility] Work Phone: Comment on above: Ordered: 03/01/2025 End: 10-28-2023 Us breast uni real time with image limited US BREAST LTD RT Radiology Routine Abnormal mammogram 1 Occurrences starting 09/28/2022 until 10/28/2023 [facility] Work Phone: Comment on above: 1 Occurrences starting 09/28/2022 until 10/28/2023 End: 10-31-2023 XR HAND GENERAL 3V PA/LAT/OBL BILATERAL XR HAND GENERAL 3V PA/LAT/OBL BILATERAL Radiology Routine Pain in both hands 1 Occurrences starting 10/01/2022 until 10/31/2023 [facility] Work Phone: Comment on above: 1 Occurrences starting 10/01/2022 until 10/31/2023 XR HAND GENERAL 3V PA/LAT/OBL BILATERAL XR HAND GENERAL 3V PA/LAT/OBL BILATERAL Radiology Routine Pain in both hands 10/01/2022 2:[address] [facility] Work Phone: XR Spine Lumbar and Sacrum Views [facility] Immunizations Immunization Date Immunization Notes Care Provider Adwoa matthews 03-02-2025 tetanus toxoid, redu leona diphtheria toxoid, and acellular pertussis vaccine, adsorbed Mi Nurse Work Phone: [facility] 02-25-2025 diphtheria, tetanus toxoids and acellular pertussis vaccine, unspecified formulation Pennie Davis MD Work Phone: [facility] Payers Date Payer Category Payer Self-pay [id number] 2021 Medicaid [id number] 2021 Medicaid [id number] 2020 Medicaid [id number] 2019 Medicare (Managed Care) [employer] HMO [id number] 2017 Unknown ANTHEM BLUE CROS S AND BLUE SHIELD ANTHEM MEDIBLUE O [id number] 2017-Present [phone] [address] [place] [address] O [id number] 2017 Unknown [id number]. [id number] 2017 Unknown [id number] 2014 Unknown [id number] Unknown [id number] 2.16840.1.344917.3.579.2. 462 Unknown [id number] 2.16840.1.543793.3.579.2. 462 Unknown [id number] 2.16840.1.457142.3.579.2. 462 Unknown [id number] 2.16840.1.205968.3.579.2. 462 Unknown [id number] 2.16840.1.394360.3.579.2. 462 Unknown [id number] 2.16840.1.577541.3.579.2. 462 Unknown [id number] 2.16840.1.672274.3.579.2. 462 Unknown [id number] 2.16840.1.992383.3.579.2. 462 Unknown [id number] 2.16.840.1.489590.3.579.2. 462 Unknown [id number] 2.16.840.1.726182.3.579.2. 462 Unknown [id number] 2.16.840.1.850832.3.579.2. 462 Unknown [id number] 2.16.840.1.278034.3.579.2. 462 Unknown [id number] 2.16.840.1.208295.3.579.2. 462 Unknown [id number] 2.16.840.1.824893.3.579.2. 462 Unknown [id number] 2.16.840.1.819774.3.579.2. 462 Unknown [id number] 2.16.840.1.042841.3.579.2. 462 Unknown [id number] 2.16.840.1.099748.3.579.2. 462 Unknown [id number] 2.16.840.1.718436.3.579.2. 462 Unknown [id number] 2.16.840.1.554490.3.579.2. 462 Unknown [id number] 2.16.840.1.597266.3.579.2. 462 Social History Date Type Detail Facility Start: 12-09-2014 End: 07-10-2025 Tobacco smoking status MEIS Never smoked tobacco [facility] Work Phone: Start: 11-28-2021 End: 04-22-2025 Alcohol intake Current non-drinker of alcohol (finding) [facility] Start: 11-21-2020 History SDOH Social Connections Phone 5 [facility] Start: 11-21-2020 History SDOH Social Connections Muslim 3 [facility] Start: 11-21-2020 History SDOH Social Connections Membership 1 [facility] Start: 11-21-2020 History SDOH Physica l Activity DPW 7 [facility] Start: 11-21-2020 History SDOH Physica l Activity MPS 2 [facility] Start: 1970 Sex Assigned At Not on file C [facility] Start: 12-15-2021 End: 06-25-2022 Exposure to SARS-CoV-2 (event) Not sure [facility] Work Phone: Start: 12-09-2014 End: 03-24-2025 Tobacco use and exposure Smokeless tobacco non-user [facility] Start: 1970 Sex Assigned At Female C [facility] Start: 11-20-2021 End: 11-06-2023 Tobacco smoking status NHIS Unknown if ever smoked [facility] Start: 11-21-2020 End: 12-24-2023 History of Social function [facility] Work Phone: Start: 11-21-2020 End: 12-24-2023 Social connection and isolation panel [facility] Work Phone: Do you belong to any clubs or organizations such as gnosticism groups, unions, fraternal or athletic groups, or school groups? Yes [facility] Work Phone: Are you now , , , , never or living with a partner? [facility] Work Phone: Start: 08-03-2012 Adult Depression Screening Assessment 0 [facility] Work Phone: Do you feel stress - tense, restless, nervous, or anxious, or unable to sleep at night because your mind is troubled all the time - these days [OSQ] Only a little [facility] Work Phone: Start: 09-18-2022 Gender identity Identifies as female gender (finding) [facility] Start: 09-18-2022 Sexual orientation Heterosexual (fin ding) [facility] Start: 11-30-2024 Sex Female (finding) [facility] NEGATED: Highlighted rowStart: NINF History of tobacco use Passive smoker [facility] Medical Equipment Procedure Code Equipment Code Equipment Origin al Text Equipment Identifier Dates Lens Acrysof Ultrasert +14.5 Diopter Acrylic Iol 1 Piece Foldable Uv Blue - [id number] Start: 06-25-2022 Lens Acrysof Ultrasert +15.5 Diopter Acrylic Iol 1 Piece Foldable Uv Blue - [id number] Start: 11-15-2022 Functional Status Date Assessment Result Facility 12-14-2014 Are you deaf, or do you have serious difficulty hearing No 12/14/2014 10:27 AM Celeste Bass LPN No [facility] 12-14-2014 Are you blind, or do you have serious difficulty seeing, even when wearing glasses Yes 12/14/2014 10:27 AM Celeste Bass LPN Yes [facility] 12-14-2014 Do you have serious difficulty walking or climbing stairs No 12/14/2014 10:27 AM Celeste Bass LPN No [facility] 12-14-2014 Do you have difficul ty dressing or bathing No 12/14/2014 10:27 AM Celeste Bass LPN No [facility] 12-14-2014 Because of a physica l, mental, or emotional condition, do you have difficulty doing errands alone such as visiting a physician's office or shopping No 12/14/2014 10:27 AM Celeste Bass LPN No [facility] Mental Status Date Assessment Result Facility 07-10-2025 Cognitive function Level Of Cons ciousness Awake [facility] Work Phone: 06-29-2025 Cognitive function Level Of Cons ciousness Awake [facility] Work Phone: 06-23-2025 Cognitive function Level Of Cons ciousness Awake [facility] Work Phone: 06-17-2025 Cognitive function Level Of Cons ciousness Awake [facility] Work Phone: 12-14-2014 Because of a physica l, mental, or emotional condition, do you have serious difficulty concentrating, remembering, or making decisions No 12/14/2014 10:27 AM Celeste Bass LPN No [facility] Clinical Notes 11-28-2021 to 07-13-2025 Note Date & Type Note Facility 07-13-2025 Note [facility] 07-13-2025 Note [facility] 07-06-2025 Note [facility] 07-06-2025 Note [facility] 07-05-2025 Note HNO ID: [id number] Author: CATIE LINDSEY RT(R) Service: ? Author Type: Technologist Type: Progress Notes Filed: 07/05/2025 15:55 Note Text: xray: chest [facility] 07-02-2025 Note [facility] 07-01-2025 Note [facility] 07-01-2025 Note [facility] 06-30-2025 Note [facility] 06-30-2025 Note [facility] 06-30-2025 Note [facility] 06-23-2025 Discharge summary [facility] 06-23-2025 Radiology Diagnostic study note [facility] Imaging Services [address] [place] [address] Brain/Head without Contrast MR#: [id number] Acct: [id number] Name: SONA LYNN Rep #: [id number] : 1970 F 55 From: Eric June MD PCP: Dr. Pennie Davis MD Status: REG E R Study:Brain/Head without Contrast Date of Exa m: 06/23/25 Exam# [id number] Ordering Dr: Geovanni Rosen DO PROCEDURE: CT [...] subarachnoid spaces are normal in size. Absent kake ocular lenses. Intact skull base and calvarium. [...] or high-grade stenosis. No aneurysm. Reading Location: [id number] CC: Dr. Geovanni Sorto DO; Dr. Pennie Davis MD ~ Material Expeditor: Signed [facility] 06-23-2025 Radiology Diagnostic study note [facility] Imaging Services [address] [place], [place] [id number] CTA Head AND Neck W/ Contrast MR#: [id number] Acct: [id number] Name: SONA LYNN Rep #: [id number] : 1970 F 55 From: Eric June MD PCP: Dr. Pennie Davis MD Status: REG E R Study:CTA Head AND Neck W/ Contrast Date of E xam: 06/23/25 Exam# [id number] Ordering Dr: Geovanni Rosen DO PROCEDURE: CT [...] subarachnoid spaces are normal in size. Absent kake ocular lenses. Intact skull base and calvarium. [...] or high-grade stenosis. No aneurysm. Reading Location: [id number] CC: Dr. Geovanni Sorto DO; Dr. Pennie Davis MD ~ Material Expeditor: Signed [facility] 06-23-2025 Discharge summary Note Date/Time June 23, 2025 10:15pm [facility] Medical Records Department [address] [place] [address] Emergency Department Summary 06/23/25 MR#: [id number] Acct: [id number] Name: SONA LYNN Rep #:[id number] : 1970 55 From: Geovanni cody DO PCP: Dr. Pennie Davis MD Status:DEP E R Location: ED [...] intact Psych: Cooperative, appropriate mood and affect [facility] Medical History (Updated 06/23/25 @ 20:[address] Geovanni Sorto DO) Wears glasses Depression Anxiety High cholesterol Ambulates with cane GERD (gastroesophageal reflux disease) Non-smoker Hip arthritis Degenerative scoliosis Lumbar radiculopathy Spondylolisthesis History of trigger finger Fibromyalgia Restless legs Hot flashes Legal blindness of both eyes as defined in [place] PXE (pseudoxanthoma elasticum) Hypertension Home Medications ?Medication [...] mg-325 0.5 - 1 tab PO TID MA N pain 03/10/25 Unknown History mg tablet cyclobenzaprine 10 mg tablet 10 mg PO HS MUSCLE SPASM 06/04/25 Unknown History Lactobacillus 25 billion 1 cap PO DAILY SUPPLMENT 06/26 Unknown History cell-Bifido 25 billion [id number] capsule cevimeline 30 mg capsule 1 cap [...] artery. Vascular surgery, Dr. Hinojosa was consulted. 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 Recommended [...] (Auto) 67.2 Lymph % (Auto) 17.9 L Greenlee % (Auto) 11.9 H Eos % (Auto) [...] or high-grade stenosis. No aneurysm. Reading Location: [facility] Head/Neck CTA 06/23/25 19:05 IMPRESSION: No [...] or high-grade stenosis. No aneurysm. Reading Location: [facility] Discharge Plan Triage Chief Complaint: Headache [...] mg capsule 1 cap PO DAILY Lacto no.03-Zeiapx-EDY-larch 25B cell-25B cell-50 mg capsule 1 cap PO DAILY Primary Care Provider: Pennie Davis Referrals: Pennie Davis MD [Primary Care Provider, Internal Medicine] - 3-5 Days Activity Restrictions/Additional Instructions: Follow-up with your primary care physician. Return back to ED if symptoms change or worsen. Print Language: Swiss Disposition Disposition: Home, Self Care Discharge Date/Time: 06/23/25 21:15 What to do if you have Problems For any increased pain, shortness of breath, bleeding, nausea or vomiting, chestpain, or any unexpected problems, contact your Primary Care Provider. Call [facility] ([phone]) or report to the closest Emergency Room. Call 911 if necessary. 06/24/25 0025 <Electronically signed by Geovanni Sorto DO> Cosigner Signature (if applicable): CC: Dr. Pennie Davis MD ~ Signed [facility] Work Phone: 1(488) 568-399710-16-2025 Discharge summary [facility] Medical Records Department [address] [place] [address] Emergency Department Summary 06/17/25 MR#: [id number] Acct: [id number] Name: SONA LYNN Rep #:[id number] : 1970 55 From: Patti Piña DO PCP: Dr. Pennie Davis MD Status:DEP E R Location: ED [...] too high risk to have the surgery. [facility] Medical History (Updated 06/17/25 @ 19:[address] Patti Piña DO) Wears glasses Depression Anxiety High cholesterol Ambulates with cane GERD (gastroesophageal reflux disease) Non-smoker Hip arthritis Degenerative scoliosis Lumbar radiculopathy Spondylolisthesis History of trigger finger Fibromyalgia Restless legs Hot flashes Legal blindness of both eyes as defined in [place] PXE (pseudoxanthoma elasticum) Hypertension Home Medications ?Medication [...] mg-325 0.5 - 1 tab PO TID MA N pain 03/10/25 Unknown History mg tablet cyclobenzaprine 10 mg tablet 10 mg PO HS MUSCLE SPASM 06/04/25 Unknown History Lactobacillus 25 billion 1 cap PO DAILY SUPPLMENT 06/26 Unknown History cell-Bifido 25 billion ftgz-TTQ-zhytn capsule cevimeline 30 mg capsule 1 cap [...] she believes with a vascular surgeon in [facility] next Saturday which is in 5 days. [...] provider Patti Piña 06/17/2025 at 6 p.m. PLASTIC SHEETING CUTTER. Reading Location: [facility] Head/Neck CTA 06/17/25 18:12 IMPRESSION: 1. [...] provider Patti Piña 06/17/2025 at 6 p.m. PLASTIC SHEETING CUTTER. Reading Location: [id number] Discharge Plan Triage Chief Complaint: Headache ED [...] mg capsule 1 cap PO DAILY Lacto no.32-Vztagu-PZB-larch 25B cell-25B cell-50 mg capsule 1 cap PO DAILY Primary Care Provider: Pennie Davis Referrals: Pennie Davis MD [Primary Care Provider, Internal Medicine] Quincy Hinojosa MD [Med Staff - Active Staff, Vascular Surgery] - 5-7 Days Print Language: Swiss Disposition Disposition: Home, Self Care What to do if you have Problems For any increased pain, shortness of breath, bleeding, nausea or vomiting, chestpain, or any unexpected problems, contact your Primary Care Provider. Call [facility] ([phone]) or report tothe closest Emergency Room. Call 911 if necessary. 06/17/252232 Cosigner Signature (if applicable): CC: Dr. Pennie Davis MD ~ Signed [facility]10-16-2025 Radiology Diagnostic study note [facility] Imaging Services [address] [place], [place] [address] Brain/Head without Contrast MR#: [id number] Acct: [id number] Name: SONA LYNN Rep #: [id number] : 1970 F 55 From: Eric June MD PCP: Dr. Pennie Davis MD Status: REG E R Study:Brain/Head without Contrast Date of Exa m: 06/17/25 Exam# [id number] Ordering Dr: Stacey Piña DO PROCEDURE: CT [...] subarachnoid spaces are normal in size. Absent kake ocular lenses. Intact skull base and calvarium. [...] provider Patti Piña 06/17/2025 at 6 p.m. PLASTIC SHEETING CUTTER. Reading Location: [facility] CC: Dr. Pennie Davis MD; Dr. Patti Piña, DO ~ Material Expeditor: Signed [facility]10-16-2025 Radiology Diagnostic study note [facility] Imaging Services [address] [place] [address] CTA Head AND Neck W/ Contrast MR#: [id number] Acct: [id number] Name: SONA LYNN Rep #: [id number] : 1970 F 55 From: Eric June MD PCP: Dr. Pennie Davis MD Status: REG E R Study:CTA Head AND Neck W/ Contrast Date of E xam: 06/17/25 Exam# [id number] Ordering Dr: Stacey Piña DO PROCEDURE: CT [...] subarachnoid spaces are normal in size. Absent kake ocular lenses. Intact skull base and calvarium. [...] provider Patti Piña 06/17/2025 at 6 p.m. PLASTIC SHEETING CUTTER. Reading Location: [facility] CC: Dr. Pennie Davis MD; Dr. Patti Piña DO ~ Material Expeditor: Signed [facility]10-16-2025 Discharge summary Author Patti Piña [facility] Note Date/Time June 17, 2025 7 :48pm [facility] Medical Records Department [address] [facility] [address] Emergency Department Summary 06/17/25 MR#: [id number] Acct: [id number] Name: SONA LYNN ANN Rep #:[id number] : 1970 55 From: Patti Piña DO PCP: Dr. Pennie Davis MD Status:DEP E R Location: ED [...] too high risk to have the surgery. [facility] Medical History (Updated 06/17/25 @ 19:[address] Patti Piña, DO) Wears glasses Depression Anxiety High cholesterol Ambulates with cane GERD (gastroesophageal reflux disease) Non-smoker Hip arthritis Degenerative scoliosis Lumbar radiculopathy Spondylolisthesis History of trigger finger Fibromyalgia Restless legs Hot flashes Legal blindness of both eyes as defined in [place] PXE (pseudoxanthoma elasticum) Hypertension Home Medications ?Medication [...] mg-325 0.5 - 1 tab PO TID MA N pain 03/10/25 Unknown History mg tablet cyclobenzaprine 10 mg tablet 10 mg PO HS MUSCLE SPASM 06/04/25 Unknown History Lactobacillus 25 billion 1 cap PO DAILY SUPPLMENT 06/26 Unknown History cell-Bifido 25 billion ikit-XHP-mwxze capsule cevimeline 30 mg capsule 1 cap [...] she believes with a vascular surgeon in [facility] next Saturday which is in 5 days. [...] Clinical Impression(s) from Imaging Studies Brain CT 10/16/25 18:12 IMPRESSION: 1. No acute intracranial hemorrhage, [...] provider Patti Piña 06/17/2025 at 6 p.m. PLASTIC SHEETING CUTTER. Reading Location: [facility] Head/Neck CTA 06/17/25 18:12 IMPRESSION: 1. [...] provider Patti Piña 06/17/2025 at 6 p.m. PLASTIC SHEETING CUTTER. Reading Location: [facility] Discharge Plan Triage Chief Complaint: Headache [...] mg capsule 1 cap PO DAILY Lacto no.75-Rjchfl-GNS-larch 25B cell-25B cell-50 mg capsule 1 cap PO DAILY Primary Care Provider: Pennie Davis Referrals: Pennie Davis MD [Primary Care Provider, Internal Medicine] Quincy Hinojosa MD [Med Staff - Active Staff, Vascular Surgery] - 5-7 Days Print Language: Swiss Disposition Disposition: Home, Self Care What to do if you have Problems For any increased pain, shortness of breath, bleeding, nausea or vomiting, chestpain, or any unexpected problems, contact your Primary Care Provider. Call [facility] ([phone]) or report to the closest Emergency Room. Call 911 if necessary. 06/17/252232 <Electronically signed by Patti Piña DO> Cosigner Signature (if applicable): CC: Dr. Pennie Davis MD ~ Signed [facility] Work Phone: 1(512) 173-298709-26-2025 [facility] Discharge summary [facility] Medical Records Department [address] [place] [address] Emergency Department Summary 05/27/25 MR#: [id number] Acct: [id number] Name: SONA LYNN Rep #:[id number] : 1970 55 From: Juan Manuel Turpin MD PCP: Dr. Pennie Davis MD Status:REG E R Location: ED [...] eyes as defined in [place] PXE (pseudoxanthoma elasticum) Hypertension Home Medications ?Medication [...] QDAY 12/09/24 Unkn own History omega-3 720 uj-qux-caj-fish cap PO 12/09/24 Unknown Hi story oil-vit [...] mg-325 0.5 - 1 tab PO TID MA N pain 03/10/25 Unknown History mg tablet [...] narrative: Patient has a concussion. Per the [place] CT head rule and [place] rule imaging is not indicated. Patient was [...] mg tablet 200 mg PO QDAY vitamin H10-qooey acid 500-400 mcg tablet 1 tab PO QDAY Rx Instructions: administer with a meal ea-2-xdy-epa-fish oil-vit D3 720 mg- 25 mcg capsule PO oxycodone-acetaminophen 5-325 mg tablet 0.5 - 1 tab PO TID PRN (Reason: pain) gabapentin 100 mg capsule 100 mg PO QHS fluticasone propionate 50 mcg/actuation spray,suspension 2 spray intranasal QDAY atorvastatin 40 MG tablet 40 mg PO QHS meloxicam 15 mg tablet omeprazole 20 mg capsule,delayed release(DR/EC) Primary Care Provider: Pennie Davis Referrals: Pennie Davis MD [Primary Care Provider, Internal Medicine] - As Needed Print Language: Swiss Disposition Disposition: Home, Self Care What to do if you have Problems For any increased pain, shortness of breath, bleeding, nausea or vomiting, chestpain, or any unexpected problems, contact your Primary Care Provider. Call [facility] ([phone]) or report tothe closest Emergency Room. Call 911 if necessary. 05/27/251913 Cosigner Signature (if applicable): CC: Dr. Pennie Davis MD ~ Signed [facility]09-25-2025 Discharge summary Author Juan Manuel Turpin [facility] Note Date/Time May 27, 2025 7:14pm [facility] Medical Records Department [address] [place] [address] Emergency Department Summary 05/27/25 MR#: [id number] Acct: [id number] Name: SONA LYNN ANN Rep #:[id number] : 1970 55 From: Juan Manuel Turpin MD PCP: Dr. Pennie Davis MD Status:REG E R Location: ED [...] eyes as defined in [place] PXE (pseudoxanthoma elasticum) Hypertension Home Medications ?Medication [...] QDAY 12/09/24 Unkn own History omega-3 720 sf-nnl-tdi-fish cap PO 12/09/24 Unknown Hi story oil-vit [...] mg-325 0.5 - 1 tab PO TID MA N pain 03/10/25 Unknown History mg tablet [...] narrative: Patient has a concussion. Per the [place] CT head rule and [place] rule imaging is not indicated. Patient was [...] mg tablet 200 mg PO QDAY vitamin C97-zxvyn acid 500-400 mcg tablet 1 tab PO QDAY Rx Instructions: administer with a meal yb-9-zyi-epa-fish oil-vit D3 720 mg- 25 mcg capsule PO oxycodone-acetaminophen 5-325 mg tablet 0.5 - 1 tab PO TID PRN (Reason: pain) gabapentin 100 mg capsule 100 mg PO QHS fluticasone propionate 50 mcg/actuation spray,suspension 2 spray intranasal QDAY atorvastatin 40 MG tablet 40 mg PO QHS meloxicam 15 mg tablet omeprazole 20 mg capsule,delayed release(/EC) Primary Care Provider: Pennie Davis Referrals: Pennie Davis MD [Primary Care Provider, Internal Medicine] - As Needed Print Language: Swiss Disposition Disposition: Home, Self Care What to do if you have Problems For any increased pain, shortness of breath, bleeding, nausea or vomiting, chestpain, or any unexpected problems, contact your Primary Care Provider. Call [facility] ([phone]) or report to the closest Emergency Room. Call 911 if necessary. 05/27/251913 <Electronically signed by Juan Manuel Turpin MD> Cosigner Signature (if applicable): CC: Dr. Pennie Davis MD ~ Signed [facility] Work Phone: 1(724) 342-244709-25-2025 NoteOhio[facility] Telephone encounter Note* Telephone Encounter - Staish Hunter - 05/17/2025 4:44 PM EDT Images from the original note were not included. Fax received from [facility] dated 05/15/25, regarding New Rx Fax placed on provider desk for review/signature. [facility]09-15-2025 Miscellaneous Notes* Telephone Encounter - Satish Hunter - 05/17/2025 4:44 PM EDT Images from the original note were not included. Fax received from [facility] dated 05/15/25, regarding New Rx Fax placed on provider desk for review/signature. documented in this encounterC[facility]08-28-2025 Telephone encounter Note * Telephone Encounter - Mallory Morrison RN - 04/29/2025 8:26 AM EDT Call placed to patient and notified of below with verbalized understanding. Mallory Morrison RN [facility]08-28-2025 Miscellaneous Notes* Telephone Encounter - Mallory Morrison RN - 04/29/2025 8:26 AM EDT Call placed to patient and notified of below with verbalized understanding. Mallory Morrison RN * Telephone Encounter - Pennie Davis MD - 04/28/2025 5:22 PM EDT [...] advise, Mallory Morrison RN documented in this encounterC[facility]08-27-2025 Telephone encounter Note * Telephone Encounter - Pennie Davis MD - 04/28/2025 5:22 PM EDT Filed the medication as requested [facility]08-27-2025 Telephone encounter Note* Telephone Encounter - Spring Peñaloza RN - 04/28/2025 4:42 PM EDT Pt called in to see if provider had called in a steroid for her. I let her know that the provider had not gotten to the message as of yet. Please call and advise. Spring Peñaloza RN [facility]08-27-2025 Telephone encounter Note* Telephone Encounter - [...] Please review and advise, Mallory Morrison RN [facility]08-21-2025 Telephone encounter Note* Telephone Encounter - Jackie Freitas MA - 04/22/2025 3:41 PM EDT The following approved medication requests have been transmitted electronically. Requested Prescriptions Signed Prescriptions Disp Refills fluconazole (DIFLUCAN) 150 mg tablet 10 tablet 0 Sig: Take 1 tablet by mouth once daily for 10 days. Authorizing Provider: PENNIE DAVIS MA [facility]08-21-2025 Miscellaneous Notes* Telephone Encounter - Jackie Freitas MA - 04/22/2025 3:41 PM EDT The following approved medication requests have been transmitted electronically. Requested Prescriptions Signed Prescriptions Disp Refills fluconazole (DIFLUCAN) 150 mg tablet 10 tablet 0 Sig: Take 1 tablet by mouth once daily for 10 days. Authorizing Provider: PENNIE DAVIS MA * Telephone Encounter - Pennie Davis MD - 04/22/2025 3:35 PM EDT I sent new rx. Pennie Flores MD * Telephone Encounter - Clint Brennan RN - 04/22/2025 11:31 AM EDT [facility] Sade Javier called for clarification on Fluconazole 150 mg instructions: 1 tab daily for 10 days (repeat in 3 days if needed) # 10. Please clarify and let Liliana Javier know. documented in this encounterC[facility]08-21-2025 Telephone encounter Note * Telephone Encounter - Pennie Davis MD - 04/22/2025 3:35 PM EDT I sent new rx. Pennie Flores MD [facility]08-21-2025 Telephone encounter Note* Telephone Encounter - Clint Brennan, BRITTANY - 04/22/2025 11:31 AM EDT Liliana Javier called for clarification on Fluconazole 150 mg instructions: 1 tab daily for 10 days (repeat in 3 days if needed) # 10. Please clarify and let Liliana Javier know. [facility]08-21-2025 Instructions* Patient Instructions* Pennie Davis MD - 04/22/2025 11:30 AM EDT We discussed your eye condition and recent surgery: - You reported ongoing issues with fluid leakage and discomfort following your eye surgery. The fluid leakage has improved, and your eye pressure is now stable. Continue following up with your eyelet punch operator as scheduled. - You mentioned a droopy [...] not improve. - Follow up with your eyelet punch operator as scheduled. - Attend your MRI appointment on May 07 for your hip. - Let me know if you would like to proceed with an ENT referral for the Inspire device. Please contact the office if you have any questions or concerns. documented in this encounterC[facility]08-21-2025 NoteOhio[facility]08-21-2025 History of Present illness Narrative* Pennie Davis MD - 04/22/2025 11:00 AM EDT Reason for Visit Follow up HPI Sona Lynn is a 54-year-old female with a history of glaucoma, scoliosis, and sleep apnea, presenting for evaluation of recent eye surgery complications, intertrigo, and poison boo exposure. She is accompanied by a friend, who is providing additional history. Sona recently underwent eye surgery at the [facility] due to a significant decrease in [...] her fingers, right elbow, and left forearm. Sona has a history of sleep apnea and [...] resuming exercise once her energy levels improve. Sona has a history of scoliosis and arthritis, [...] excuse any unintended typographical errors. Recording using 9+ software for draft documentation of the visit was discussed with the patient/authorized customer assistance representative; all questions welcomed and answered. 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 I have seen and examined this patient. I have discussed the case and the management of this patient's care with the Resident/Fellow/Senior Graphic Designer, if applicable. I also have reviewed and agree with the assessment and plan as stated above and agree with all of its relevant components. Shani Ramos MD April 20, 2025 11:06 AM documented in this encounterC[facility]08-19-2025 Instructions* Patient Instructions* Shani Ramos MD - 04/20/2025 11:03 AM EDT Prednisolone LEFT EYE 4 x daily for 1 month total post surgery then begin taper: 3 x daily x 2 week then 2 x daily x 2 week then 1 x daily x 2 week then STOP Stop shield 1 week after surgery All other restrictions for 2 weeks total after surgery documented in this encounterCleveland [facility]08-15-2025 Evaluation note* Diagnosis Onset Date Resolution [...] f left hip acute June 04 10:59am [facility] Work Phone: 1(740) 299-461008-10-2025 NoteOhio[facility]08-10-2025 History of Present illness Narrative* Aislinn Mcmullen PA-C - 04/11/2025 1:39 PM EDT Images from the original note were not included. [facility] NOTE Pennie Davis MD [address] [facility] [address] Sona Lynn is a 54-year-old female with a history of HTN, wet macular degeneration, and PXE, presenting with cough and sinus congestion. Sona reports onset of symptoms following her 9th [...] the care of multiple [facility]. She also has a history of [...] bleb revision (bleb reduction) x 11/15/2022- Dr. Shani Ramos M.D. [place] [address] SOCIAL HISTORY[3] Physical Exam: BP 110/62 Pulse [...] agrees with the treatment plan. Recording using 9+ software for draft documentation of the visit was discussed with the patient/authorized customer assistance representative; all questions welcomed and answered. Patient/authorized customer assistance representative agreed to proceed. TRINH Perez, PA-C [...] No Drug use: No documented in this encounterCleveland [facility]08-10-2025 Instructions* Patient Instructions* Aislinn Mcmullen PA-C - [...] please contact our office. documented in this encounterCleveland [facility]08-02-2025 Telephone encounter Note * Telephone Encounter [...] concerns and asked them to call back [phone] at any time when available to discuss further. Shy Meier MD Ophthalmology Resident [facility] Work Phone: 1(747) 747-991208-02-2025 Miscellaneous Notes* Telephone Encounter - Shy Meier [...] concerns and asked them to call back [phone] at any time when available to discuss further. Shy Meier MD Ophthalmology Resident documented in this encounterCleveland [facility]08-01-2025 History of Present illness Narrative* Adriana Lund MD - 04/02/2025 10:00 AM EDT -PO 1w 1d bleb leak repair OS 03/25/25 (conj advancement flap) -now on tobradex qid OS, e-mycin qhs -healing well, no leak Change t-dex to PF and use that qid -can stop e-mycin -sees Papkandyzos 04/20 By signing my name below, I, [...] by others. I have seen and examined Sona Lynn. I have discussed the case and the management of this patient's care with the Resident/Fellow, if applicable. I also have reviewed,edited as necessary, and agree with the assessment and plan as stated above and agree with all of its relevant components. * Adriana Lund MD - 03/29/2025 1:29 PM EDT documented in this encounterCleveland Clinic [facility]08-01-2025 NoteOhio[facility]07-30-2025 Telephone encounter Note* Telephone Encounter - Gely Plascencia - 03/31/2025 2:22 PM EDT patient called, she lost her White Cap eye medication, requesting a new script [facility] Work Phone: [phone]) [phone] Miscellaneous Notes* Telephone Encounter - Gely Plascencia - 03/31/2025 2:22 PM EDT patient called, she lost her White Cap eye medication, requesting a new script documented in this encounterCleveland Clinic [facility]07-30-2025 Telephone encounter Note * Telephone Encounter - Pennie Davis MD - 03/31/2025 12:59 PM EDT Ordered as requested Regards, Pennie Davis MD [facility]07-30-2025 Miscellaneous Notes* Telephone Encounter - Pennie Davis MD - 03/31/2025 12:59 PM EDT Ordered as requested Regards, Pennie Davis MD * Telephone Encounter - Mallory [...] advise, Mallory Morrison RN documented in this encounterCleveland Clinic [facility]07-30-2025 Telephone encounter Note * Telephone Encounter - Gely Plascencia - 03/31/2025 12:12 PM EDT I contacted the patient and left a voicemail informing her that you will be seeing her instead of the other physician. Just a heads-up. [facility] Work Phone: [phone]) [phone] Miscellaneous Notes* Telephone Encounter - Gely Plascencia [...] EDT YES. I can see her in [place] tomorrow (Sat) if she wants. Otherwise she has an appt Saturday with Dr. Ayala. I am on site and happy to come over if needed. * Telephone Encounter - Gely Plascencia - 03/30/2025 2:46 PM EDT The patient reports experiencing tearing from the left eye approximately four to five times daily. Is this considered normal? [phone] sx: 03/25/2025 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 [[id number]] - Eye - Left documented in this encounterCleveland Clinic [facility]07-30-2025 Telephone encounter Note * Telephone Encounter - Adriana Lund MD - 03/31/2025 12:03 PM EDT I moved her back to my Saturday clinic schedule - I will see her Saturday instead of Dr. Ayala [facility]07-30-2025 Telephone encounter Note* Telephone Encounter - [...] Please review and advise, Mallory Morrison RN [facility]07-30-2025 Telephone encounter Note* Telephone Encounter - Gely Plascencia - 03/31/2025 8:17 AM EDT The patient has requested that you visit on Saturday to examine her eye. [facility]07-29-2025 Telephone encounter Note* Telephone Encounter - Adriana Lund MD - 03/30/2025 5:23 PM EDT YES. I can see her in [place] tomorrow (Sat) if she wants. Otherwise she has an appt Saturday with Dr. Ayala. I am on site and happy to come over if needed. [facility]07-29-2025 Telephone encounter Note* Telephone Encounter - Gely Plascencia - 03/30/2025 2:46 PM EDT The patient reports experiencing tearing from the left eye approximately four to five times daily. Is this considered normal? [phone] sx: 03/25/2025 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 [[id number]] - Eye - Left [facility]07-28-2025 NoteHNO ID: [id number] Author: ADRIANA LUND MD Service: ? Author Type: Physician Type: Progress Notes Filed: 04/02/2025 10:40 Note Text:[facility]07-25-2025 Note* Addendum Note - Hilario Mckeon MD - 03/26/2025 8:50 PM EDTAddended by: HILARIO MCKEON on: 03/26/2025 08:50 PM Modules accepted: Orders [facility]07-25-2025 Miscellaneous Notes* Addendum Note - Hilario Mckeon MD - 03/26/2025 8:50 PM EDTAddended by: HILARIO MCKEON on: 03/26/2025 08:50 PM Modules accepted: Orders * Telephone Encounter - Hilario Mckeon MD - 03/26/2025 7:17 PM EDT [...] The eye clinic can be reached at [phone] and you can ask to speak to the telecommunications equipment installer plastic extrusion operator. Hilario Mckeon MD Ophthalmology Resident, [facility] documented in this encounterC[facility]07-[facility]-2025 Telephone encounter Note * Telephone Encounter - Hilario Mckeon MD - 03/26/2025 7:17 PM EDT [...] The eye clinic can be reached at [phone] and you can ask to speak to the telecommunications equipment installer plastic extrusion operator. Hilario Mckeon MD Ophthalmology Resident, [facility]07-23-2025 History and physical note* Emily Chaparro, UMRTAZA.NREMT - 03/24/2025 3:02 PM EDT Images from the original note were not included. [facility] HISTORY AND PHYSICAL EXAMINATION SERVICE DATE: 03/24/2025 SERVICE TIME: 9:13 AM PRIMARY CARE PHYSICIAN: Pennie Davis MD Assessment Patient has the following medical conditions which may affect osorio-operative course: Hypertension Assessment: controlled on rx Last 14 BP Last 14 Encounter BP Readings: Date: BP: 03/24/2025 108/66 12/29/2024 112/66 11/03/2024 114/78 10/31/2024 141/88 10/12/2024 106/63 10/07/2024 124/62 09/29/2024 138/88 09/24/2024 122/81 09/15/2024 118/66 07/08/2024 128/82 04/11/2024 122/70 03/31/2024 128/70 12/24/2023 126/82 11/18/2023 124/72 Mixed hyperlipidemia Assessment: c/w statin PAD (peripheral artery disease) ([facility]) Assessment: 20-39% bilateral carotid artery stenosis [...] large neck Non-male patient STOP-Bang Score: 3 [id number] Score: Age: <65 Sex: female CHF history: No Hypertension history: Yes Stroke/TIA/thromboembolism history: No Vascular disease history: Yes Diabetes history: No [id number] Score: 3 ARISCAT Score: Age: 51-80 Preoperative [...] 03/24/2025 Expiration Date: 06/23/2025 REASON FOR VISIT: Sona Lynn is a 54 year old female [...] Maintenance data. CHIEF COMPLAINT: Pre-op exam HPI: Sona Lynn is a 54 year old seen for PAC due to scheduled above surgery because Leaking of conjunctival drainage bleb. 03/23/25, Dr. Figueroa Urgent visit for bleb leak OS Sent by [facility] doctor for bleb leak OS [...] Neurological: +BPPV. No history of TIA's, stroke, SALES SUPPORT COORDINATOR tumor, impaired sensorium, hemiplegia, paraplegia or quadraplegia. [...] pain, CHF, congenital heart defect, DVT/PE, recent OR, PTCA, open heart surgery and valve surgery. GI: Negative for: abdominal pain, dysphagia, GERD, hepatitis, irritable bowel syndrome, inflammatory bowel disease, liver disease, nausea, pancreatitis, vomiting and ETOH >2 drinks/day. : No history of dysuria, frequency or incontinence, stones or chronic kidney disease. No difficulty urinating, nocturia > 1 time per night or hematuria. BAG FILLER: Negative for abnormal vaginal bleeding, abnormal vaginal [...] bleb revision (bleb reduction) x 11/15/2022- Dr. Shani Ramos M.D. S BALLOON,[place] ABLATION [id number] FAMILY HISTORY Problem Relation Age of Onset Heart Father Age 61 Ovarian cancer Maternal Grandmother Heart Maternal Grandfather Cancer Paternal Grandmother Breast Heart Son OR Cancer Maternal Aunt 55 ovarian cancer Glaucoma [...] 8760 hours). Recent Results (from the past 16755 hours) ECHO Collection Time: 07/09/22 3:24 PM [...] compliance. SIGNATURE: Emily Chaparro APRN.CNP PATIENT NAME: Sona Lynn DATE: March 24, 2025 TIME: 3:02 PM PAGER/CONTACT #: [facility]07-23-2025 History and physical note* Emily Chaparro APRN.CNP - 03/24/2025 3:02 PM EDT Images from the original note were not included. [facility] HISTORY AND PHYSICAL EXAMINATION SERVICE DATE: 03/24/2025 SERVICE TIME: 9:13 AM PRIMARY CARE PHYSICIAN: Pennie Davis MD Assessment Patient has the following medical conditions which may affect osorio-operative course: Hypertension Assessment: controlled on rx Last [...] large neck Non-male patient STOP-Bang Score: 3 [id number] Score: Age: <65 Sex: female CHF history: No Hypertension history: Yes Stroke/TIA/thromboembolism history: No Vascular disease history: Yes Diabetes history: No [id number] Score: 3 ARISCAT Score: Age: 51-80 Preoperative [...] 03/24/2025 Expiration Date: 06/23/2025 REASON FOR VISIT: Sona Lynn is a 54 year old female [...] Maintenance data. CHIEF COMPLAINT: Pre-op exam HPI: Sona Lynn is a 54 year old seen for PAC due to scheduled above surgery because Leaking of conjunctival drainage bleb. 03/23/25, Dr. Figueroa Urgent visit for bleb leak OS Sent by [facility] doctor for bleb leak OS [...] Neurological: +BPPV. No history of TIA's, stroke, SALES SUPPORT COORDINATOR tumor, impaired sensorium, hemiplegia, paraplegia or quadraplegia. [...] pain, CHF, congenital heart defect, DVT/PE, recent OR, PTCA, open heart surgery and valve surgery. GI: Negative for: abdominal pain, dysphagia, GERD, hepatitis, irritable bowel syndrome, inflammatory bowel disease, liver disease, nausea, pancreatitis, vomiting and ETOH >2 drinks/day. : No history of dysuria, frequency or incontinence, stones or chronic kidney disease. No difficulty urinating, nocturia > 1 time per night or hematuria. BAG FILLER: Negative for abnormal vaginal bleeding, abnormal vaginal [...] bleb revision (bleb reduction) x 11/15/2022- Dr. Shani Ramos M.D. S BALLOON,UTERINE ABLATION [id number] FAMILY HISTORY Problem Relation Age of Onset Heart Father Age 61 Ovarian cancer Maternal Grandmother Heart Maternal Grandfather Cancer Paternal Grandmother Breast Heart Son OR Cancer Maternal Aunt 55 ovarian cancer Glaucoma [...] 8760 hours). Recent Results (from the past 74240 hours) ECHO Collection Time: 07/09/22 3:24 PM [...] compliance. SIGNATURE: Emily Chaparro APRN.CNP PATIENT NAME: Sona Lynn DATE: March 24, 2025 TIME: 3:02 PM PAGER/CONTACT #: documented in this encounterCleveland Clinic [facility]07-23-2025 Instructions* Patient Instructions* Emily Chaparro APRN.CNP - 03/24/2025 3:02 PM EDT Images from the original note were not included. [facility] PATIENT PREOPERATIVE INSTRUCTIONS No ref. provider found has scheduled you for your procedure at this surgery center: [facility]: [phone] --[facility], [address], [place] [address]. Please read below carefully for your personalized [...] office. If you are currently using a lgko-mcy-gsli injectable or oral medication for diabetes or [...] Procedures: - YOU MUST HAVE A RESPONSIBLE CIVIL DRAFTER TAKE YOU HOME. A STRATEGIC PLANNING MANAGER OR WELL DRILL OPERATOR CABLE TOOL CANNOT BE MADE A RESPONSIBLE CIVIL DRAFTER. - We recommend that a responsible person [...] Advance Directive, please fax a copy to [phone] or email to for it to be [...] day. Emily Chaparro APRN.DEBORAH documented in this encounterCleveland Clinic [facility]07-23-2025 Telephone encounter Note * Telephone Encounter - Adriana uLnd MD - 03/24/2025 2:18 PM EDT I [...] but called back today as documented below. [facility] Work Phone: 1(759) 538-870207-23-2025 Miscellaneous Notes* Telephone Encounter - Adriana Lund [...] Jackelin Fields - 03/24/2025 9:40 AM EDT Sona Lynn CCF# [id number] Patient calling w/update BCL Contact not working Leaking fluid still, face is wet and sticky Susan Martinez MD filed at 03/23/2025 3:55 PM Status: Signed Urgent visit for bleb leak OS Sent by [facility] doctor for bleb leak OS [...] 04/06 will revise 04/12 documented in this encounterCleveland Clinic [facility]07-23-2025 Telephone encounter Note * Telephone Encounter - Jackelin Fields - 03/24/2025 9:40 AM EDT Sona Lynn CCF# [id number] Patient calling w/update BCL Contact not working Leaking fluid still, face is wet and sticky Susan Martinez MD filed at 03/23/2025 3:55 PM Status: Signed Urgent visit for bleb leak OS Sent by [facility] doctor for bleb leak OS [...] if still leaking 04/06 will revise 04/12 [facility] Work Phone: 1(722) 918-830607-22-2025 NoteDate of Procedure 03/23/2025. Aircraft Captain Information Head Irrigator: Notes Bleb leak [id number] NoteDate of Procedure 03/23/2025. Aircraft Captain Information Head Irrigator: Imaging Comments: Limited quality images due to non-mydriatic state . Notes No choroidals Document baseline disc [id number] NoteDate of Procedure 03/23/2025. Aircraft Captain Information Head Irrigator: TOO. Quality Right Eye Good. Left Eye Good. NFL Interpretation Right Eye Superior loss, Inferior loss. Left Eye Normal.[id number] NoteTable formatting from the original result was not included. Date of Procedure 03/23/2025. Notes Ophthalmology Exam Pachymetry (03/23/2025, 03/23/25) Right Left Thickness 543, 540 540,530 Edited by: Saranya Buchanan OA [id number] Instructions* Patient Instructions* Shyanne Parmar MD - 03/23/2025 3:07 PM EDT Please take timolol (yellow top) twice a day in the left eye And moxifloxacin (mora top) four times a day in the left eye documented in this encounterCleveland Clinic [facility] Hospital07-22-2025 NoteOhiohealth Riverside [facility]07-22-2025 History of Present illness Narrative* Susan Martinez MD - 03/23/2025 2:24 PM EDT Urgent visit for bleb leak OS Sent by [facility] doctor for bleb leak OS [...] by others. I have seen and examined Sona Lynn. I have discussed the case and the management of this patient's care with Dr. Shyanne Parmar PGY-2. I also have reviewed and agree with the assessment and plan as stated above and agree with all of its relevant components. Susan Martinez MD 03/23/2025 documented in this encounterCleveland Clinic [facility]07-22-2025 Telephone encounter Note * Telephone Encounter - Barbie Alicea - 03/23/2025 10:46 AM EDT Appointment scheduled with at 12:30. Patient advised to arrive on empty stomach. States she did have a granola bar and took medications around 9 am. *documentation is in secure chat* Barbie Alicea March 23, 2025 10:48 AM [facility]07-22-2025 Miscellaneous Notes* Telephone Encounter - Barbie Alicea - 03/23/2025 10:46 AM EDT Appointment scheduled with at 12:30. Patient advised to arrive on empty stomach. States she did have a granola bar and took medications around 9 am. *documentation is in secure chat* Barbie Alicea March 23, 2025 10:48 AM * Telephone Encounter - Susan Rivero RN - 03/23/2025 9:55 AM EDT Response from Dr. Ramos: yes I can see her sooner but this needs urgent revision and I'm leaving for [place] tomorrow morning[place] April 07. Maybe its better to go to [facility] to be cared for Left message for patient to call the office to obtain the above information. Barbie Alicea reaching out to [facility] scheduling to find the availability of a male infertility specialist to take over patient care with Dr. Ramos going out of the country. Susan Rivero RN March 23, 2025 10:00 AM * Telephone Encounter - Susan Rivero RN - 03/23/2025 9:50 AM EDT Spoke with patient. Sent the following message to Dr. Ramos in a Urgent Secure Chat regarding conversation: Received chart notes from [facility] Ankur Mata MD. Patient has loose Exposed suture with a briskly leaking bleb, carmen positive, intraocular pressure 0 left eye . Patient started on Moxifloxacin four times a day . Advised to see you today for possible treatment. Patient was added to your schedule in the Urgent 4:00 slot. Do you feel this patient should come in sooner. Patient states Dr. Mata advised she have surgery today? This is not noted in documentation. Please advise Patient is very concerned and upset. States she feels she should be seen earlier than the 4:00 appointment. Susan Rivero RN March 23, 2025 9:54 AM documented in this encounterCleveland Clinic [facility] Hospital07-22-2025 Telephone encounter Note * Telephone Encounter - Susan Rivero RN - 03/23/2025 9:55 AM EDT Response from Dr. Ramos: yes I can see her sooner but this needs urgent revision and I'm leaving for [place] tomorrow morninguntil April 07. Maybe its better to go to [facility] to be cared for Left message for patient to call the office to obtain the above information. Barbie Alicea reaching out to [facility] scheduling to find the availability of a male infertility specialist to take over patient care with Dr. Ramos going out of the country. Susan Rivero RN March 23, 2025 10:00 AM [facility]07-22-2025 Telephone encounter Note* Telephone Encounter - Susan Rivero RN - 03/23/2025 9:50 AM EDT Spoke with patient. Sent the following message to Dr. Ramos in a Urgent Secure Chat regarding conversation: Received chart notes from [facility] Ankur Mata MD. Patient has loose Exposed suture with a briskly leaking bleb, carmen positive, intraocular pressure 0 left eye . Patient started on Moxifloxacin four times a day . Advised to see you today for possible treatment. Patient was added to your schedule in the Urgent 4:00 slot. Do you feel this patient should come in sooner. Patient states Dr. Mata advised she have surgery today? This is not noted in documentation. Please advise Patient is very concerned and upset. States she feels she should be seen earlier than the 4:00 appointment. 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 acute March 10, 2025 2 :26pm Greater trochanteric bursiti s of left hip acute March 10, 2025 2 :26pm Lumbar spondylosis acute March 102024 2:26pm [facility] Work Phone: 1(723) 968-654207-09-2025 Evaluation note* Diagnosis Onset Date Resolution Status [...] 2:23pm Spondylolisthesis acute April 16, 2025 2:23pm [facility] Work Phone: 1(456) 731-343907-09-2025 Evaluation note* Diagnosis Onset Date Resolution Status [...] arthritis acute June 3:14pm Lumbar radiculopathy acute Juno 2024 3:14pm Spondylolisthesis acute June 03, 2025 3:14pm [facility] [employer] [facility] Work Phone: 1(182) 273-596607-09-2025 Evaluation note* Diagnosis Onset Date Resolution Status [...] f left hip acute June 04 10:59am [facility] [employer] Work Phone: 1(310) 132-816306-30-2025 Telephone encounter Note* Telephone Encounter - YESI VARGHESE - 03/01/2025 7:55 AM EDT Patient scheduled for nurse visit 03/02/25 to receive TDAP vaccine. Please place order at this time. Yesi Varghese LPN [facility]06-30-2025 Miscellaneous Notes* Telephone Encounter - YESI VARGHESE - 03/01/2025 7:55 AM EDT Patient scheduled for nurse visit 03/02/25 to receive TDAP vaccine. Please place order at this time. Yesi Varghese LPN documented in this encounterCleveland Clinic [facility] Hospital06-26-2025 Telephone encounter Note * Telephone Encounter - Spring Peñaloza RN - 02/25/2025 1:26 PM EDT Pt called in and was asking if she was up to date on her TDAP vaccine, because she is going to visit her new grand baby. Please place the order for the vaccine as she will be coming in to get this with OR nurse on 03/03/25. Spring Peñaloza RN [facility]06-26-2025 Miscellaneous Notes* Telephone Encounter - Spring Peñaloza RN - 02/25/2025 1:26 PM EDT Pt called in and was asking if she was up to date on her TDAP vaccine, because she is going to visit her new grand baby. Please place the order for the vaccine as she will be coming in to get this with OR nurse on 03/03/25. Spring Peñaloza RN documented in this encounterCleveland Clinic [facility] Hospital05-14-2025 Telephone encounter Note * Telephone Encounter - Susan Meza LPN - 01/13/2025 10:27 AM EDT Called and updated patient, patient will call back with alternate supplier Susan Meza LPN January 13, 2025 10:28 AM [facility]05-14-2025 Miscellaneous Notes* Telephone Encounter - Susan Meza LPN - 01/13/2025 10:27 AM EDT Called and updated patient, patient will call back with alternate supplier Susan Meza LPN January 13, 2025 10:28 AM * Telephone Encounter - Sona Mcknight LPN - 01/13/2025 9:12 AM EDT Roman from [facility] said they do not carry that item requested. * Telephone Encounter - Susan Meza LPN - 01/13/2025 8:10 AM EDT Faxed order to [facility] per patient request Susan Meza LPN January 13, 2025 8:10 AM * Telephone Encounter - Angelica Arreola RN - 01/12/2025 10:38 AM EDT Patient reports she has lost her blindness cane. States she spoke with her insurance company [employer] and they state for PCP to write a new order and send to DME company. Order pended for provider review. Please fax order to [facility]. Please call patient with an update. Angelica Arreola RN documented in this encounterCleveland Clinic [facility] Hospital05-14-2025 Telephone encounter Note * Telephone Encounter - Sona Mcknight LPN - 01/13/2025 9:12 AM EDT Roman from [facility] said they do not carry that item requested. [facility]05-14-2025 Telephone encounter Note* Telephone Encounter - Susan Meza LPN - 01/13/2025 8:10 AM EDT Faxed order to [facility] per patient request Susan Meza LPN January 13, 2025 8:10 AM [facility]05-13-2025 Telephone encounter Note* Telephone Encounter - Angelica Arreola RN - 01/12/2025 10:38 AM EDT Patient reports she has lost her blindness cane. States she spoke with her insurance company [employer] and they state for PCP to write a new order and send to DME company. Order pended for provider review. Please fax order to [facility]. Please call patient with an update. Angelica Arreola RN [facility]05-13-2025 Telephone encounter Note* Telephone Encounter - Germaine Berkowitz LPN - 01/12/2025 8:32 AM EDT CPAP supply order faxed. Germaine Berkowitz LPN [facility]05-13-2025 Miscellaneous Notes* Telephone Encounter - Germaine Berkowitz LPN - 01/12/2025 8:32 AM EDT CPAP supply order faxed. Germaine Berkowitz LPN documented in this encounterCleveland Clinic [facility] Hospital04-30-2025 Telephone encounter Note * Telephone Encounter [...] she is legally blind and doesn't drive. [facility]04-30-2025 Miscellaneous Notes* Telephone Encounter - Clint [...] sent her CPAP orders to [facility] in [place]. They should be reaching out to her to set up machine. Letty Morales LPN * Telephone Encounter - Eve Tracey - 12/30/2024 8:38 AM EDT Patient calling in to let Parish Chin know her results from her CPAP are now in her chart. She is asking if she had the chance to review them. Please review and advise patient. Eve Tracey December 30, 2024 8:39 AM documented in this encounterCleveland Clinic [facility] Hospital04-30-2025 Telephone encounter Note * Telephone Encounter - Letty Morales LPN - 12/30/2024 11:26 AM EDT TC to pt with no answer, left VM to return call. Please confirm if she is referring to her sleep study. I called patient on December 17 with the results and sent her CPAP orders to [facility] in [place]. They should be reaching out to her to set up machine. Letty Morales LPN [facility]04-30-2025 Telephone encounter Note* Telephone Encounter - Eve Tracey - 12/30/2024 8:38 AM EDT Patient calling in to let Parish Chin know her results from her CPAP are now in her chart. She is asking if she had the chance to review them. Please review and advise patient. Eve Tracey December 30, 2024 8:39 AM [facility]04-29-2025 NoteOhiohealth Riverside Methodist Hospital04-29-2025 History of Present illness Narrative* Pennie Davis MD - 12/29/2024 5:04 PM EDT Reason for Visit Follow up depression and sleep apnea HPI Sona is a 54-year-old female with a history of moderate obstructive sleep apnea, presenting for medication refills and management of sleep apnea. Sona reports feeling a lot better but still [...] and is diligent about her skincare routine. Snoa reports a recent weight gain, currently weighing [...] any unintended typographical errors. Recording using ambient [employer] software for draft documentation of the visit was discussed with the patient/authorized customer assistance representative; all questions welcomed and answered. Patient/authorized customer assistance representative agreed to proceed Pennie Davis MD documented in this encounterCleveland Clinic [facility] Hospital04-23-2025 Telephone encounter Note * Telephone Encounter [...] is changing pharmacies from mail order to [facility] so needs a new rx sent Sharifa Amaral RN December 23, 2024 12:45 PM [facility]04-23-2025 Miscellaneous Notes* Telephone Encounter - Sharifa [...] is changing pharmacies from mail order to [facility] so needs a new rx sent Sharifa Amaral RN December 23, 2024 12:45 PM documented in this encounterCleveland Clinic [facility] Hospital04-17-2025 Telephone encounter Note * Telephone Encounter - Letty Morales LPN - 12/17/2024 2:56 PM EDT TC to pt who voiced understanding. Agreeable to [facility]. 31-90 day follow up made. Letty Morales LPN [facility]04-17-2025 Miscellaneous Notes* Telephone Encounter - eLtty Morales LPN - 12/17/2024 2:56 PM EDT TC to pt who voiced understanding. Agreeable to [facility] [place]. 31-90 day follow up made. Letty Morales LPN * Telephone Encounter - Parish Chin APRN.DEBORAH - 12/17/2024 1:24 PM EDT Please CALL pt with result of sleep study--it confirms that she has sleep apnea so I will prescribeautoCPAP for her. Will plan to send to [facility] unless she has another DME she wants to use. Parish Chin APRN.CNP documented in this encounterCleveland Clinic [facility]04-17-2025 Telephone encounter Note * Telephone Encounter - Parish Chin APRN.CNP - 12/17/2024 1:24 PM EDT Please CALL pt with result of sleep study--it confirms that she has sleep apnea so I will prescribeautoCPAP for her. Will plan to send to [facility] unless she has another DME she wants to use. Parish Chin APRN.CNP [facility]04-09-2025 Evaluation note* Diagnosis Onset Date Resolution Status Admit Date Greater trochanteric bursiti s of left hip acute December 09, 2024 1:22pm Rotator cuff tendonitis acute A pril 2024 1:22pm [facility] Work Phone: [phone]) [phone] Telephone encounter Note* Telephone Encounter - Susan Meza LPN - 12/08/2024 10:05 AM EDT Called and left message for patient, on self identified voicemail Susan Meza LPN December 08, 2024 10:05 AM [facility]04-08-2025 Miscellaneous Notes* Telephone Encounter - Susan Meza LPN - 12/08/2024 10:05 AM EDT Called and left message for patient, on self identified voicemail Susan Meza LPN December 08, 2024 10:05 AM * Telephone Encounter - Pennie Davis MD - 12/07/2024 5:36 PM EDT Rx for her. Pennie Flores MD * Telephone Encounter - Dara [...] advise, Dara Valdez RN documented in this encounterCleveland Clinic [facility]04-07-2025 Telephone encounter Note * Telephone Encounter - Pennie Davis MD - 12/07/2024 5:36 PM EDT Rx for her. Pennie Flores MD [facility]04-07-2025 Telephone encounter Note* Telephone Encounter - Jackie Freitas MA - 12/07/2024 11:35 AM EDT This was ordered by sleep provider: Parish Chin. Results must come from ordering provider. Once sleep provider receives results the sleep office will contact patient. Jackie Freitas MA [facility]04-07-2025 Miscellaneous Notes* Telephone Encounter - Jackie Freitas MA - 12/07/2024 11:35 AM EDT This was ordered by sleep provider: Parish Chin. Results must come from ordering provider. Once sleep provider receives results the sleep office will contact patient. Jackie Freitas MA * Telephone Encounter - Rupa George - 12/07/2024 10:04 AM EDT Patient calling again for status update on sleep study results. PSS reviewed provider's response in unread [employer] Message. Patient asking to be contacted as soon as results are in. She states she is struggling to sleep. * Telephone Encounter - Dara Valdez RN - 12/01/2024 8:58 AM EDT Patient calls and states that she was at [facility] for Sleep study on 11/17/2024. Patient asking about results for sleep study. Please review and advise, Dara Valdez RN documented in this encounterC[facility]04-[facility] Telephone encounter Note * Telephone Encounter [...] Please review and advise, Dara Valdez RN [facility]04-07-2025 Telephone encounter Note* Telephone Encounter - Rupa George - 12/07/2024 10:04 AM EDT Patient calling again for status update on sleep study results. PSS reviewed provider's response in unread [employer] Message. Patient asking to be contacted as soon as results are in. She states she is struggling to sleep. [facility]04-01-2025 Telephone encounter Note* Telephone Encounter - Dara Valdez RN - 12/01/2024 8:58 AM EDT Patient calls and states that she was at [facility] for Sleep study on 11/17/2024. Patient asking about results for sleep study. Please review and advise, Dara Valdez RN [facility]03-25-2025 Radiology Diagnostic study note [facility] Imaging Services [address], [place] [id number] Hip Min 2 Views (Portable) MR#: [id number] Acct: [id number] Name: SONA LYNN ANN Rep #: [id number] : 1970 F 54 From: Benton Weathers DO PCP: Dr. Pennie Davis MD Status: REG Xiang LO Study:Hip Min 2 Views (Portable) Date of Exam : 11/24/24 Exam# [id number] Ordering Dr: Sona Prakash PROCEDURE: HIP MIN 2 VIEWS (PORTABLE) [...] of the left groin region. Reading Location: [id number] CC: Sona Prakash; Dr. Pennie Davis MD ~ Material Expeditor: Signed [facility]03-21-2025 Telephone encounter Note* Telephone Encounter - Spring Peñaloza RN - 11/20/2024 12:46 PM EDT Pt called and is notified of providers results and instructions. Pt voices understanding. Spring Peñaloza RN [facility]03-21-2025 Miscellaneous Notes* Telephone Encounter - Spring Peñaloza RN - 11/20/2024 12:46 PM EDT Pt called and is notified of providers results and instructions. Pt voices understanding. Spring Peñaloza RN * Telephone Encounter - Luiza Anna APRN.CNP - 11/20/2024 12:34 PM EDT Glucose is only slightly low and I am not concerned with that. The potassium is probably from decreased dietary intake and being on lisinopril hydrochlorothiazide for her blood pressure. I would recommend we start a daily potassium supplement an recheck in 1 week after starting the supplement. Take with food to decrease nausea. Thank you Luiza Anna APRN.DEBORAH * Telephone Encounter - Sona Mcknight LPN - 11/20/2024 10:38 AM EDT Patient calling asking about her lab results that she had done yesterday, she can see results on [employer]. Glucose was abnormal at 73, she said [...] 71 Legend: (L) Low documented in this encounterCleveland Clinic [facility]03-[facility]-2025 Telephone encounter Note * Telephone Encounter - Luiza Anna APRN.CNP - 11/20/2024 12:34 PM EDT Glucose is only slightly low and I am not concerned with that. The potassium is probably from decreased dietary intake and being on lisinopril hydrochlorothiazide for her blood pressure. I would recommend we start a daily potassium supplement an recheck in 1 week after starting the supplement. Take with food to decrease nausea. Thank you Luiza Anna APRN.CNP [facility]03-21-2025 Telephone encounter Note* Telephone Encounter - Sona Mcknight LPN - 11/20/2024 10:38 AM EDT Patient calling asking about her lab results that she had done yesterday, she can see results on [facility]. Glucose was abnormal at 73, she said [...] eGFR >=60 mL/min/1.73m 71 Legend: (L) Low [facility]03-20-2025 [facility] History of Present illness Narrative* Luiza AnnaMURTAZA.NREMT - 11/19/2024 12:58 PM EDT CC: Patient presents with: Recheck: 2 week follow up HPI Sona Lynn is a 54 year old female [...] regimen. She does not check BP's generally. Sona walking when weather is nice. She watches [...] bleb revision (bleb reduction) x 11/15/2022- Dr. Shani Ramos M.D. S BALLOON,UTERINE ABLATION [address]2294 ALLERGIES Ultram [Tramadol Hcl], Darvocet A500 [Propoxyphene [...] Maternal Aunt 55 ovarian cancer Heart Son OR Ovarian cancer Maternal Grandmother Glaucoma No Family [...] - Instructed patient to contact office or [id number] after-hours promptly should condition worsen or any new symptoms appear. - Counseling Center [facility] and after hours crisis line [...] symptoms occur. Patient agreeable to treatment plan. Luiza Anna APRN.CNP documented in this encounterCleveland [facility]03-06-2025 Telephone encounter Note * Telephone Encounter - Susan Meza LPN - 11/05/2024 1:23 PM EST Patient updated via active [employer] uSsan Meza LPN November 05, 2024 1:23 PM [facility]03-06-2025 Miscellaneous Notes* Telephone Encounter - Susan Meza LPN - 11/05/2024 1:23 PM EST Patient updated via active [employer] Susan JOLIE Meza November 05, 2024 1:23 PM * Telephone Encounter - Susan Meza LPN - 11/05/2024 1:22 PM EST ----- Message from Pennie Davis MD sent at 11/05/2024 11:42 AM EST ----- Sona, Your labs are all normal including iron, vit b12, vit d, thyroid. Ferritin although it is on the lower side, it still is low, would advice that she take otc iron pills to see if that would help her fatigue. Regards, Pennie Davis MD documented in this encounterCleveland Clinic [facility]03-06-2025 Telephone encounter Note * Telephone Encounter - Susan Meza LPN - 11/05/2024 1:22 PM EST ----- Message from Pennie Davis MD sent at 11/05/2024 11:42 AM EST ----- Sona, Your labs are all normal including iron, vit b12, vit d, thyroid. Ferritin although it is on the lower side, it still is low, would advice that she take otc iron pills to see if that would help her fatigue. Regards, Pennie Davis MD [facility]03-04-2025 Instructions* Patient Instructions* Pennie Davis MD - 11/03/2024 2:51 PM EST Try taking the percocet without trazodone to see if that helps sleep with out feeling like a hang over. documented in this encounterCleveland Clinic [facility]03-04-2025 NoteOhio[facility]03-04-[facility] History of Present illness Narrative* Pennie Davis MD - 11/03/2024 2:24 PM EST CC: Patient presents with: Recheck: 10/31/24 UA done at urgent care, always tired HPI Sona Lynn is a 53 year old female who presents today for 6-month follow-up. 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 Dr. Sparks is her plastic extrusion operator/labor specialist that she sees every 3 months. States she has not had a bleed in her eye at a long time, but at the same time she states she wouldn't see it at this point. Slowly progressive loss of peripheral vision. Patient also reports that she has issueswith calcified joints/arthritis. [place], so she can use the [employer] for going places, [employer]. She is engaged in a lot of activities, and is giving back to the community as much as she can in every way she can. She has a son in [place], and a brother near by. Her eyes [...] extremely active in the community. Takes the [email or web address] bus to [employer] every Saturday, [...] available full-time. Needs include home health aid, detention if applicable - says her boyfriend could [...] Had worked with an OT previously through [facility] in [place] previously who assisted with various techniques and [...] Maternal Aunt 55 ovarian cancer Heart Son OR Ovarian cancer Maternal Grandmother Glaucoma No Family [...] THYROXINE - COMPLETE BLOOD COUNT AND DIFFERENTIAL Pennie Davis MD documented in this encounterCleveland Clinic [facility]03-03-2025 Telephone encounter Note * Telephone Encounter - Laura Lepe MA - 11/02/2024 7:50 AM EST Patient given results and verbalized understanding of instructions given. Laura Lepe MA [facility]03-03-2025 Miscellaneous Notes* Telephone Encounter - Laura [...] please follow-up with PCP. documented in this encounterCleveland Clinic [facility]03-03-2025 Telephone encounter Note * Telephone Encounter - Britta Gunn PA - 11/02/2024 7:10 AM EST Please let patient know urine culture did not reveal clear evidence of UTI. If she is persistent with symptoms, please follow-up with PCP. [facility]03-01-2025 Instructions* Patient Instructions* Chantal Pino APRN.DEBORAH - 10/31/2024 1:21 PM EST Keflex for [...] pain go to ER. documented in this encounterCleveland Clinic [facility]03-01-2025 NoteOhio[facility]03-01-2025 History of Present illness Narrative* Chantal Pino APRN.CNP - 10/31/2024 1:12 PM EST Subjective The history is provided by the patient. No foreign languages department chair was used. HPI Sona Lynn is a 54 year old female [...] have confirmed and edited as necessary, the [facility] Review of Systems Constitutional: Negative for chills [...] evaluation. franko Pino APRN.CNP documented in this encounterCleveland Clinic [facility]02-19-2025 History of Present illness Narrative* Kimberley De Los Santos Mammo Tech - 10/21/2024 2:20 PM EST Radiology Service Progress Note PATIENT NAME: Sona Lynn DATE OF SERVICE: October 21, 2024 [...] PATIENT PRESENTS WITH AN IMPLANTABLE OR ATTACHED DENTAL TECHNICIAN: No RADIOLOGY DEPARTMENT: Mammography PERIPHERAL IV DATA: Not applicable SIGNED BY: Rubin Carlton October 21, 2024 2:00 PM documented in this encounterCleveland Clinic [facility]02-19-2025 NoteOhio[facility]02-14-2025 Telephone encounter Note* Telephone Encounter - Letty Morales LPN - 10/16/2024 2:27 PM EST TC to Dr. Fox [facility]. Sent again. Staff will make sure to speak withDr. Fox. Letty Morales LPN [facility]02-14-2025 Miscellaneous Notes* Telephone Encounter - Letty Morales LPN - 10/16/2024 2:27 PM EST TC to Dr. Fox office[facility]. Sent again. Staff will make sure to speak withDr. Fox. Letty Morales LPN * Telephone Encounter - Letty Morales LPN - 09/28/2024 8:51 AM EST Office note faxed per request. Letty Morales LPN * Telephone Encounter - Parish Chin APRN.CNP - 09/25/2024 4:36 PM EST Please print my note and I'll write a msg to Dr Betancourt, we can fax him, then we'll let her know. We could use [facility] lab. She can still take flexeril. Parish Chin APRN.DEBORAH * Telephone Encounter - Letty Morales LPN - 09/25/2024 4:26 PM EST TC to pt who had questions about flexeril, she has been taking it every night to see if it helps with the leg spasms. Wonders if she can still take this or if she will need to stop them. Is okay withincreasing the gabapentin, uses [facility] in [place]. Aware we need to talk to Dr. Betancourt. Has upcoming appts with PCP and pain management. Is okay to do a sleep study using [facility] but is unable to travel out of town very far. Letty Morales LPN * Telephone Encounter - Parish Chin APRN.NREMT - 09/25/2024 3:52 PM EST Please CALL pt and tell her I reviewed her case with Dr Jiménez. --We looked at her [facility] sleep study report--Dr Jiménez believes she [...] do thatwould she consider going to a [facility] sleep lab? Parish Chin APRN.NREMT documented in this encounterCleveland Clinic [facility]02-11-2025 NoteOhio[facility]02-11-2025 History of Present illness Narrative* Shani Ramos MD - 10/13/2024 11:05 AM EST [...] Plan: As above Has been working with [facility] for - progressive pseudoxanthoma elasticum [...] management of this patient's care with the Resident/Fellow/Senior Graphic Designer, if applicable. I also have reviewed and agree with the assessment and plan as stated above and agree with all of its relevant components. Shani Ramos MD October 13, 2024 11:05 AM documented in this encounterCleveland Clinic [facility] Hospital02-11-2025 NoteDate of Procedure 10/13/2024. Aircraft Captain Information Head Irrigator: lino. Start time: 9:55 AM. Stop time: 9:55 AM. Notes -- OCT 10/13/2024 OD atrophy, no fluid; OS atrophy, nasal fluid stable, not in [id number] Telephone encounter Note* Telephone Encounter - Jackie Freitas MA - 10/12/2024 3:27 PM EST Patient at PCP appointment. Will have patient stop at discharge to schedule PSG. Jackie Freitas MA [facility]02-10-2025 Miscellaneous Notes* Telephone Encounter - Jackie Freitas MA - 10/12/2024 3:27 PM EST Patient at PCP appointment. Will have patient stop at discharge to schedule PSG. Jackie Freitas MA * Telephone Encounter - Parish Chin APRN.CNP - 10/08/2024 12:55 PM EST PSG ordered. Please assist pt in scheduling it at [facility]. Parish Chin APRN.DEBORAH * Telephone Encounter - Dara [...] advise, Dara Valdez RN documented in this encounterCleveland Clinic [facility]02-10-2025 NoteOhio[facility]02-10-2025 History of Present illness Narrative* Pennie Davis MD - 10/12/2024 3:09 PM EST CC: Patient presents with: Follow Up For: Memory impairment HPI Sona Lynn is a 53 year old female who presents today for 6-month follow-up. 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 Dr. pSarks is her plastic extrusion operator/labor specialist that she sees every 3 months. States she has not had a bleed in her eye at a long time, but at the same time she states she wouldn't see it at this point. Slowly progressive loss of peripheral vision. Patient also reports that she has issueswith calcified joints/arthritis. She [place], so she can use the [employer] for going places, [employer]. She is engaged in a lot of activities, and is giving back to the community as much as she can in every way she can. She has a son in [place], and a brother near by. Her eyes [...] extremely active in the community. Takes the [email or web address] bus to [employer] every Saturday, as well as to her [employer] studies throughout the week. States these activities [...] available full-time. Needs include home health aid, detention if applicable - says her boyfriend could [...] Had worked with an OT previously through [facility] in [place] previously who assisted with various techniques and [...] Maternal Aunt 55 ovarian cancer Heart Son OR Ovarian cancer Maternal Grandmother Glaucoma No Family [...] ICD9: 296.22, ICD10: F32.1 Cont the wellbutrin Pennie Davis MD documented in this encounterCleveland [facility]02-06-2025 Telephone encounter Note * Telephone Encounter - Parish Chin APRN.CNP - 10/08/2024 12:55 PM EST PSG ordered. Please assist pt in scheduling it at [facility]. Parish Chin APRN.CNP [facility]02-05-2025 NoteOhio[facility]02-05-2025 History of Present illness Narrative* Calli Gerber, MURTAZA.DEBORAH - 10/07/2024 6:31 PM EST CC: Patient presents with: Memory Loss: Body aches, dry mouth HPI Sona Lynn is a 54 year old female [...] bleb revision (bleb reduction) x 11/15/2022- Dr. Shani Ramos M.D. S BALLOON,UTERINE ABLATION [address] ALLERGIES Ultram [Tramadol Hcl], Darvocet A500 [Propoxyphene [...] Maternal Aunt 55 ovarian cancer Heart Son OR Ovarian cancer Maternal Grandmother Glaucoma No Family [...] care. Calli Gerber APRN.DEBORAH documented in this encounterCleveland Clinic [facility]02-05-2025 Telephone encounter Note * Telephone Encounter [...] scheduled with other provider. Starla Mckeon LPN [facility]02-05-2025 Miscellaneous Notes* Telephone Encounter - Starla cMkeon LPN - 10/07/2024 3:50 PM EST Pt [...] provider. Starla Mckeon LPN documented in this encounterCleveland Clinic [facility] Hospital02-05-2025 Telephone encounter Note * Telephone Encounter [...] Please review and advise, Dara Valdez RN [facility]01-28-2025 NoteOhiohealth [facility]01-28-2025 History of Present illness Narrative* Pennie Davis MD - 09/29/2024 2:28 PM EST CC: Patient presents with: F/U 6 months HPI Sona Lynn is a 53 year old female who presents today for 6-month follow-up. 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 Dr. Sparks is her plastic extrusion operator/labor specialist that she sees every 3 months. States she has not had a bleed in her eye at a long time, but at the same time she states she wouldn't see it at this point. Slowly progressive loss of peripheral vision. Patient also reports that she has issueswith calcified joints/arthritis. She has [place] to [place], so she can use the [employer] for going places, [employer]. She is engaged in a lot of activities, and is giving back to the community as much as she can in every way she can. She has a son in [place], and a brother near by. Her eyes [...] extremely active in the community. Takes the [email or web address] bus to [employer] every Saturday, [...] available full-time. Needs include home health aid, detention if applicable - says her boyfriend could [...] Had worked with an OT previously through [facility] in [place] previously who assisted with various techniques and [...] bleb revision (bleb reduction) x 11/15/2022- Dr. Shani Ramos M.D. S BALLOON,UTERINE ABLATION [address] ALLERGIES Ultram [Tramadol Hcl], Darvocet A500 [Propoxyphene [...] Maternal Aunt 55 ovarian cancer Heart Son OR Ovarian cancer Maternal Grandmother Glaucoma No Family [...] MG TABLET - TRAZODONE 100 MG TABLET Pennie Davis MD documented in this encounterCleveland Clinic [facility] Hospital01-27-2025 Telephone encounter Note * Telephone Encounter - Letty Morales LPN - 09/28/2024 8:51 AM EST Office note faxed per request. Letty Morales LPN [facility]01-24-2025 Telephone encounter Note* Telephone Encounter - Parish Chin APRN.DEBORAH - 09/25/2024 4:36 PM EST Please print my note and I'll write a msg to Dr Betancourt, we can fax him, then we'll let her know. We could use [facility] lab. She can still take flexeril. Parish Chin APRN.DEBORAH [facility] Work Phone: 1(289) 464-997501-24-2025 Telephone encounter Note* Telephone Encounter - Letty Morales LPN - 09/25/2024 4:26 PM EST TC to pt who had questions about flexeril, she has been taking it every night to see if it helps with the leg spasms. Wonders if she can still take this or if she will need to stop them. Is okay withincreasing the gabapentin, uses [facility] in [place]. Aware we need to talk to Dr. Betancourt. Has upcoming appts with PCP and pain management. Is okay to do a sleep study using [facility] but is unable to travel out of town very far. Letty Morales LPN [facility]01-24-2025 Telephone encounter Note* Telephone Encounter - Parish Chin APRN.CNP - 09/25/2024 3:52 PM EST Please CALL pt and tell her I reviewed her case with Dr Jmiénez. --We looked at her [facility] sleep study report--Dr Jiménez believes she [...] do thatwould she consider going to a [facility] sleep lab? Parish Chin APRN.CNP [facility]01-23-2025 History of Present illness Narrative* Parish Chin APRN.CNP - 09/24/2024 3:00 PM EST Images from the original note were not included. Addendum: I reviewed her case with Dr Jiménez. We looked at her [facility] sleep study report including hypnogram--Dr Jiménez [...] could give ambien that night, would prefer [facility] sleep lab but she would requirea cdl a driver due to her blindness. Parish Chin APRN.CNP [facility] New Patient Evaluation PATIENT NAME: Soan Lynn DATE OF SERVICE: September 24, 2024 CONSULTING PROVIDER: Dr Davis REASON FOR CONSULT: sends the patient for an opinion about DAYSI, blindness. My findings and recommendations will be transmitted electronically via shared medical record to the consulting provider. HPI: Sona Lynn is a 54 year old female. [...] gabapentin at HS. Had a PSG at [facility] -- didn't meet criteria for DAYSI [...] night A Polysomnogram performed on 07/22/24 at [facility] revealed an AHI of 8.1 (3%) [...] adenoma CT MAXILLOFAC/SINUS 06/29/2015 normal EGD W/O [facility] SPEC VARICIES INJ 05/30/2023 Small hiatal [...] bleb revision (bleb reduction) x 11/15/2022- Dr. Shani Ramos M.D. S BALLOON,UTERINE ABLATION [address] ACTIVE PROBLEM LIST Patellar Tendinitis Pxe (Pseudoxanthoma [...] Maternal Aunt 55 ovarian cancer Heart Son OR Ovarian cancer Maternal Grandmother Glaucoma No Family [...] a blind cane IMPRESSION/PLAN: No diagnosis found. Sona Lynn is a delightful 54 year old [...] leg movements in her sleep. PSG at [facility] didn't show significant arousals from PLMs [...] Dr Jiménez then call pt with plan Parish Chin APRN.DEBORAH I spent a total of 60+ minutes on the date of the service which included preparing to see the patient, [id number] patient care, completing clinical documentation, obtaining and/or reviewing separately obtained history, performing a medically appropriate examination, counseling and educating the pa tient/family/caregiver, and communicating with other HCPs (not separately reported). documented in this encounterCleveland Clinic [facility]01-23-2025 NoteOhio[facility]01-14-2025 NoteOhio[facility]01-14-2025 History of Present illness Narrative* Destiney Pendleton APRN.DEBORAH - 09/15/2024 10:04 AM EST Sona Lynn is a 54 year old female [...] L3 SAB0 IAB0 Ectopic0 Multiple0 Live Births0 [employer] History LMP: Ablation Age at Menarche: Age at First : Age at Menopause: [employer] History Comments: Sexual Activity: Not Currently; Male [...] bleb revision (bleb reduction) x 11/15/2022- Dr. Shani Ramos M.D. S BALLOON,UTERINE ABLATION [address] FAMILY HISTORY Problem Relation Age of Onset Heart Father Age 61 Heart Maternal Grandfather Cancer Paternal Grandmother Breast Cancer Maternal Aunt 55 ovarian cancer Heart Son OR Ovarian cancer Maternal Grandmother Glaucoma No Family [...] Level: 3 - Low documented in this encounterCleveland Clinic [facility] Hospital01-07-2025 Telephone encounter Note * Telephone Encounter - Nikkie Awad - 09/08/2024 10:03 AM EST Sona is calling Pennie Davis MD today with concern regarding Refill Request Patient calling and states that her mail order pharmacy called and told her that she needs refills on just about all of her medications. 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 PHARMACY: [facility]. Patient is asking for Flonase right away and be sent to [facility]. Patient has been identified by name and birthdate. Duration of symptoms: N/A Person calling: self Call patient at: on cell [phone] (home) [phone] (cell) Was an appointment scheduled: No Closing statement: Results or non-symptom based questions: Thank you for calling [facility], your call will be returned within the next business day. Nikkie Awad [facility]01-07-2025 Miscellaneous Notes* Telephone Encounter - Nikkie Awad - 09/08/2024 10:03 AM EST Sona is calling Pennie Davis MD today with concern regarding Refill [...] calling: self Call patient at: on cell [phone] (home) [phone] (cell) Was an appointment scheduled: No Closing statement: Results or non-symptom based questions: Thank you for calling [facility], your call will be returned within the next business day. Nikkie Awad documented in this encounterC[facility] Clinic [facility]12-12-2024 Telephone encounter Note * Telephone Encounter - Luiza Anna APRN.CNP - 08/13/2024 7:09 AM EST She has an upcoming appointment with Dr. Davis next week. Have her take a few blood pressures different days after sitting to rest for a good 5 minutes and can bring readings to appointment to reviewwith her. Thank you Luiza Anna APRN.CNP [facility]12-12-2024 Miscellaneous Notes* Telephone Encounter - Luiza Anna APRN.CNP - 08/13/2024 7:09 AM EST She has an upcoming appointment with Dr. Davis next week. Have her take a few blood pressures different days after sitting to rest for a good 5 minutes and can bring readings to appointment to reviewwith her. Thank you Luiza Anna APRN.CNP * Telephone Encounter - Virginia [...] for return call. * Telephone Encounter - Luiza Anna APRN.CNP - 08/12/2024 1:30 PM EST That is higher then we would like to see. I do not see anything in the chart instructing her to do so. What is going on that she was asked to do this and by whom? Thank you Luiza Anna APRN.CNP * Telephone Encounter - Emily Prieto LPN - 08/12/2024 11:17 AM EST Patient calling, states she was instructed to call in with 3 separate BP readings today. 9:17am BP 155/82 HR 89 10:25am BP 146/88 HR 91 11:12am BP 158/88 HR 102 documented in this encounterCleveland Clinic [facility] Hospital12-11-2024 Telephone encounter Note * Telephone Encounter - Virginia Lorenz MA - 08/12/2024 2:30 PM EST Spoke with patient regarding below. After reviewing, it looks like patient was called on 08/10 by Patient Outreach and patient outreach MA instructed patient to call in readings. See 08/10/24 patient outreach. Virginia Lorenz MA [facility]12-11-2024 Telephone encounter Note* Telephone Encounter - Tori Morales MA - 08/12/2024 2:09 PM EST Left message for return call. [facility]12-11-2024 Telephone encounter Note* Telephone Encounter - Luiza Anna APRN.CNP - 08/12/2024 1:30 PM EST That is higher then we would like to see. I do not see anything in the chart instructing her to do so. What is going on that she was asked to do this and by whom? Thank you Luiza Anna APRN.CNP [facility]12-11-2024 Telephone encounter Note* Telephone Encounter - Emily Prieto LPN - 08/12/2024 11:17 AM EST Patient calling, states she was instructed to call in with 3 separate BP readings today. 9:17am BP 155/82 HR 89 10:25am BP 146/88 HR 91 11:12am BP 158/88 HR 102 [facility]12-09-[facility] History of Present illness Narrative* Akanksha Ross MA - 08/10/2024 11:21 AM EST POPULATION HEALTH NAVIGATION OUTREACH Action/FYI Patient is on [facility] CURRENT ROSTER Workbench list [...] 10, 2024 11:21 AM documented in this encounterCleveland Clinic [facility]12-04-2024 Telephone encounter Note * Telephone Encounter - Virginia Lorenz MA - 08/05/2024 11:08 AM EST Spoke with sleep/neuro nurse here in [facility]. [facility] not at this location anymore. However, [employer] and [facility] can come to patients home and set up machine and instruct patient. Patient notified of the above and will contact insurance to inquire if they are in network. Pt willcall back and let us know where to send the order. Virginia Lorenz MA [facility]12-04-2024 Miscellaneous Notes* Telephone Encounter - Virginia Lorenz MA - 08/05/2024 11:08 AM EST Spoke with sleep/neuro nurse here in [facility]. [facility] not at this location anymore. However, [employer] [...] her she would need to call her [employer] and find out the DME they use and call us back. I said it looked like Dr Davis knew about the [facility] to help her to use it as [...] Lorenz MA - 07/29/2024 11:09 AM EST Sona notified and verbalized understanding. PSS, please contact patient to schedule with Sleep Medicine. Virginia Lorenz MA * Telephone Encounter - Pennie Davis MD - 07/28/2024 4:41 PM EST I understand her hesitancy. Because of her limitations I would like her to see sleep medicine as they might consider other methodologies like the inspire or dental appliances. RegardsPennie MD * Telephone Encounter - Virginia Lorenz MA - 07/28/2024 9:37 AM EST Patient notified and verbalized understanding. Patient asking if PCP feels that she would be able to do this herself with her vision. Putting the mask on, etc. Virginia Lorenz MA * Telephone Encounter - Pennie Davis MD - 07/27/2024 6:32 PM EST Please let patient know that she mild sleep apnea and she also likely has periodic limb movement disorder. The ideal treatment would be a CPAP machine. If she is willing to try it we will send her a CPAP machine and work with the [facility] to help her to use it. For periodic limb movement disorders we could see if the treatment of sleep apnea would help with that symptom and if it does not we can revisit it in the future. RegardsPennie MD * Telephone Encounter - Virginia Lorenz MA - 07/27/2024 1:05 PM EST Printed from [employer] and placed on PCP desk. Virginia Lorenz MA * Telephone Encounter - Luiza Anna APRN.CNP - 07/27/2024 12:25 PM EST We don't have the results either. Please get results then place on PCP desk to review. Thank you Luiza Anna APRN.DEBORAH * Telephone Encounter - Sarahi Dawkins LPN - 07/27/2024 10:40 AM EST Pt calls to report she had a sleep study done at [facility] and would like the results. Pt reports she cannot access the results. Sarahi Dawkins LPN documented in this encounterCleveland Clinic [facility]12-04-2024 Telephone encounter Note * Telephone Encounter - Spring Peñaloza RN - 08/05/2024 10:32 AM EST Pt called in and reports she wasn't able to get in to sleep medicine until 10/07/24. Pt is wanting toget CPAP machine before then. I told her she would need to call her [employer] and find out the DME they use and call us back. I said it looked like Dr Davis knew about the [facility] to help her to use it as she is legally blind, so she would need to set that up. Pt states she is always so tired, and she doesn't want to wait until October to get it. [facility]11-27-2024 Telephone encounter Note* Telephone Encounter - Sharifa Landa - 07/29/2024 11:34 AM EST 1st attempt LVM to schedule with sleep medicine [facility]11-27-2024 Telephone encounter Note* Telephone Encounter - Virginia Lorenz MA - 07/29/2024 11:09 AM EST Sona notified and verbalized understanding. PSS, please contact patient to schedule with Sleep Medicine. Virginia Lorenz MA [facility]11-26-2024 Telephone encounter Note* Telephone Encounter - Pennie Davis MD - 07/28/2024 4:41 PM EST I understand her hesitancy. Because of her limitations I would like her to see sleep medicine as they might consider other methodologies like the inspire or dental appliances. Regards, Pennie Davis MD [facility]11-26-2024 Telephone encounter Note* Telephone Encounter - Virginia Lorenz MA - 07/28/2024 9:37 AM EST Patient notified and verbalized understanding. Patient asking if PCP feels that she would be able to do this herself with her vision. Putting the mask on, etc. Virginia Lorenz MA [facility]11-25-2024 Telephone encounter Note* Telephone Encounter - Pennie Davis MD - 07/27/2024 6:32 PM EST Please let patient know that she mild sleep apnea and she also likely has periodic limb movement disorder. The ideal treatment would be a CPAP machine. If she is willing to try it we will send her a CPAP machine and work with the [facility] clinic to help her to use it. For periodic limb movement disorders we could see if the treatment of sleep apnea would help with that symptom and if it does not we can revisit it in the future. Regards, Pennie Davis MD [facility]11-25-2024 Telephone encounter Note* Telephone Encounter - Virginia Lorenz MA - 07/27/2024 1:05 PM EST Printed from [employer] and placed on PCP desk. Virginia Lorenz MA [facility]11-25-2024 Telephone encounter Note* Telephone Encounter - Luiza Anna APRN.DEBORAH - 07/27/2024 12:25 PM EST We don't have the results either. Please get results then place on PCP desk to review. Thank you Luiza Anna APRN.DEBORAH [facility]11-25-2024 Telephone encounter Note* Telephone Encounter - Sarahi Dawkins LPN - 07/27/2024 10:40 AM EST Pt calls to report she had a sleep study done at [facility] and would like the results. Pt reports she cannot access the results. Sarahi Dawkins LPN [facility]11-08-2024 Telephone encounter Note* Telephone Encounter - Angelica Arreola RN - 07/10/2024 9:15 AM EST [facility] Central Scheduling calling and states they have received a non-signed sleep study order for mutual patient. Requesting a signed order. Signed order faxed to [phone] as requested. Angelica Arreola RN [facility]11-08-2024 Miscellaneous Notes* Telephone Encounter - Angelica Arreola RN - 07/10/2024 9:15 AM EST [facility] Central Scheduling calling and states they have received a non-signed sleep study order for mutual patient. Requesting a signed order. Signed order faxed to [phone] as requested. Angelica Arreola RN documented in this encounterCleveland Clinic [facility]11-07-2024 Telephone encounter Note * Telephone Encounter - Susan Meza LPN - 07/09/2024 2:11 PM EST Called and spoke to patient would prefer [facility] d/t legally blind. Faxed order and facesheet to [facility] sleep study Susan Meza LPN July 09, 2024 2:18 PM [facility]11-07-2024 Miscellaneous Notes* Telephone Encounter - Susan Meza LPN - 07/09/2024 2:11 PM EST Called and spoke to patient would prefer [facility] d/t legally blind. Faxed order and facesheet to [facility] sleep study Susan Meza LPN July 09, 2024 2:18 PM * Telephone Encounter - Pennie Davis MD - 07/09/2024 1:27 PM EST Staff, Please co ordinate with her to get her sleep study done in the sleep lab. [place] may be easier forher. Regards, Pennie Davis MD * Telephone Encounter - Angelica Arreola RN - 07/08/2024 11:07 AM EST Patient returned call. Patient states yes, she is willing to do an in house test. States she is willing to do whatever Dr. Davis thinks is best. Please call patient with response or any new test orders. Angelica Arreola, RN * Telephone Encounter - Clint Brennan RN - 07/08/2024 9:52 AM EST Phoned pt. No answer. No voicemail. * Telephone Encounter - Pennie Davis MD - 07/07/2024 5:13 PM EST Would she be willing for an inhouse test? Due to her blindness? Regards, Pennie Davis MD * Telephone Encounter - Myra Isidro - 07/07/2024 9:51 AM EST Sona is calling Pennie Davis MD today to request a in [...] calling: self Call patient at: at home [phone] (home) [phone] (cell) Was an appointment scheduled: No Closing statement: Results or non-symptom based questions: Thank you for calling [facility], your call will be returned within the next business day. Myra Mathur documented in this encounterCleveland Clinic [facility]11-07-2024 Telephone encounter Note * Telephone Encounter - Pennie Davis MD - 07/09/2024 1:27 PM EST Staff, Please co ordinate with her to get her sleep study done in the sleep lab. [place] may be easier forher. Regards, Pennie Davis MD [facility]11-07-2024 Telephone encounter Note* Telephone Encounter - Judith Quach LPN - 07/09/2024 7:30 AM EST Patient given results and verbalized understanding of instructions given. Judith Quach LPN [facility]11-07-2024 Miscellaneous Notes* Telephone Encounter - Judith Quach LPN - 07/09/2024 7:30 AM EST Patient given results and verbalized understanding of instructions given. Judith Quach LPN * Telephone Encounter - Adriana Vidal APRN.CNP - 07/09/2024 7:16 AM EST Please notify that covid/flu/rsv testing negative. Continue with plan of care as discussed during visit. documented in this encounterCleveland Clinic [facility] Hospital11-07-2024 Telephone encounter Note * Telephone Encounter - Adriana Vidal APRN.CNP - 07/09/2024 7:16 AM EST Please notify that covid/flu/rsv testing negative. Continue with plan of care as discussed during visit. [facility] Work Phone: 1(116) 173-256711-06-2024 History of Present illness Narrative* Alise Dejesus APRN.CNP - 07/08/2024 5:44 PM EST CC: Patient presents with: Headache: [place], bodyaches, fatigue x 3 days HPI: Sona Lynn is a 54 year old female [...] bleb revision (bleb reduction) x 11/15/2022- Dr. Shani Ramos M.D. S BALLOON,UTERINE ABLATION 14030 ALLERGIES Ultram [Tramadol Hcl], Darvocet A500 [Propoxyphene [...] Maternal Aunt 55 ovarian cancer Heart Son OR Ovarian cancer Maternal Grandmother Glaucoma No Family [...] Patient agreeable to treatment plan. Alise Dejesus APRN.NREMT documented in this encounterCleveland [facility]11-06-2024 Telephone encounter Note * Telephone Encounter - Angelica Arreola RN - 07/08/2024 11:07 AM EST Patient returned call. Patient states yes, she is willing to do an in house test. States she is willing to do whatever Dr. Davis thinks is best. Please call patient with response or any new test orders. Angelica Arreola RN [facility]11-06-2024 Telephone encounter Note* Telephone Encounter - Clint Brennan RN - 07/08/2024 9:52 AM EST Phoned pt. No answer. No voicemail. [facility]11-05-2024 Telephone encounter Note* Telephone Encounter - Pennie Davis MD - 07/07/2024 5:13 PM EST Would she be willing for an inhouse test? Due to her blindness? Regards, Pennie Davis MD [facility]11-05-2024 Telephone encounter Note* Telephone Encounter - Myra Isidro - 07/07/2024 9:51 AM EST [facility] is calling Pennie Davis MD today to request a in [...] calling: self Call patient at: at home [phone] (home) [phone] (cell) Was an appointment scheduled: No Closing statement: Results or non-symptom based questions: Thank you for calling [facility], your call will be returned within the next business day. Myra Mathur [facility]11-05-2024 Telephone encounter Note* Telephone Encounter - [...] Myra Mathur July 07, 2024 9:49 AM [facility]11-05-2024 Miscellaneous Notes* Telephone Encounter - Myra [...] 07, 2024 9:49 AM documented in this encounterC[facility]10-28-2024 Telephone encounter Note * Telephone Encounter [...] Dawkins LPN June 29, 2024 10:14 AM [facility]10-28-2024 Miscellaneous Notes* Telephone Encounter - Sarahi [...] 29, 2024 10:14 AM documented in this encounterCleveland Clinic [facility]10-14-2024 History of Present illness Narrative* Chana Bridges MA - 06/15/2024 3:47 PM EDT POPULATION HEALTH NAVIGATION OUTREACH Action/ Med Adherence Atorvastatin: Last fill 03/04/24; 90 days - 0 refills Needs new Rx Unable to reach via phone (did not ring); Per V[employer] message sent Reason for Outreach Med Adherence Patient Contacted: Unable or unnecessary to reach patient: Unable to leave message MyChart message sent Navigation Signature: Chana Bridges MA June 15, 2024 3:48 PM documented in this encounterC[facility]10-11-2024 History of Present illness Narrative* Akanksha Ross MA - 06/12/2024 9:43 AM EDT POPULATION HEALTH NAVIGATION OUTREACH Action/FYI Patient is on [facility] CURRENT ROSTER Workbench list for below and [...] Spoke to patient. Scheduled mammogram 06-18-24 in [place] Declined influenza Updated upcoming 2024 OV notes [...] Screening 06/18/2024 in [facility] with SCREEN [facility]AMMO [facility] - Encounter for screening mammogram for malignant neoplasm of breast [Z12.31] 08/18/2024 in [facility] [place] with SHANI RAMOS 6 months VaTa and mac [facility] - 6 mo follow up; routine, Please address due care gap and HCC gap closure HCC related Navigation Signature: Akanksha Ross MA June 12, 2024 9:43 AM documented in this encounterC[facility]09-27-2024 History of Present illness Narrative* Ald[facility] NavigatorEileen - 05/29/2024 2:06 PM EDT POPULATION [...] will notify Pharmacy Navigation Signature: Eileen Quinteros [facility] Health Navigator May 29, 2024 2:07 PM documented in this encounterCleveland Clinic [facility]09-12-2024 Telephone encounter Note * Telephone Encounter [...] and have staff phone her to schedule. [phone] [facility]09-12-2024 Miscellaneous Notes* Telephone Encounter - Clint [...] and have staff phone her to schedule. [phone] documented in this encounterCleveland Clinic [facility] Hospital09-09-2024 Telephone encounter Note * Telephone Encounter - Khalida Agarwal - 05/11/2024 1:05 PM EDT Letter placed in mail to be mailed out to patient. Khalida Agarwal May 11, 2024 1:05 PM [facility]09-09-2024 Miscellaneous Notes* Telephone Encounter - Khalida Agarwal - 05/11/2024 1:05 PM EDT Letter placed in mail to be mailed out to patient. Khalida Agarwal May 11, 2024 1:05 PM * Telephone Encounter - Shani Ramos MD - 05/07/2024 4:30 PM EDT Condition is permanent. Letter updated and forwarded to Sana. Shani Ramos MD 05/07/2024 4:30 PM * Telephone Encounter - Barbie Alicea - 05/06/2024 3:16 PM EDT Patient states Certificate of Blindness letter dated 04/13 requires a duration. Patient would like letter mailed once completed. Barbie Alicea May 06, 2024 3:18 PM documented in this encounterCleveland Clinic [facility] Hospital09-05-2024 Telephone encounter Note * Telephone Encounter - Shani Ramos MD - 05/07/2024 4:30 PM EDT Condition is permanent. Letter updated and forwarded to Sana. Shani Ramos MD 05/07/2024 4:30 PM [facility]09-04-2024 Telephone encounter Note* Telephone Encounter - Barbie Alicea - 05/06/2024 3:16 PM EDT Patient states Certificate of Blindness letter dated 04/13 requires a duration. Patient would like letter mailed once completed. Barbie Alicea May 06, 2024 3:18 PM [facility]09-03-2024 Telephone encounter Note* Telephone Encounter - Shani Ramos MD - 05/05/2024 8:58 AM EDT Letter created. Please mail/fax. Shani Ramos MD 05/05/2024 8:58 AM [facility]09-03-2024 Miscellaneous Notes* Telephone Encounter - Shani Ramos MD - 05/05/2024 8:58 AM EDT Letter created. Please mail/fax. Shani Ramos MD 05/05/2024 8:58 AM * Telephone Encounter - Barbie Alicea - 05/01/2024 11:56 AM EDT Patient would like a letter stating dx, and what visual acuity is. Letter is needed for patient to get extra assistance with decreased vision. Once completed fax to [facility] at [phone]. Please advise Barbie Alicea May 01, 2024 11:58 AM documented in this encounterCleveland Clinic [facility]08-30-2024 Telephone encounter Note * Telephone Encounter - Barbie Alicea - 05/01/2024 11:56 AM EDT Patient would like a letter stating dx, and what visual acuity is. Letter is needed for patient to get extra assistance with decreased vision. Once completed fax to [facility] at [phone]. Please advise Barbie Alicea May 01, 2024 11:58 AM [facility]08-26-2024 Telephone encounter Note* Telephone Encounter - [...] needed. Modesta Gallardo RN 2024 5:26 PM [facility]08-26-2024 Miscellaneous Notes* Telephone Encounter - Modesta [...] RN 2024 5:26 PM documented in this encounterCleveland Clinic [facility] Hospital08-13-2024 Telephone encounter Note * Telephone Encounter - Emy Hanks - 04/14/2024 1:41 PM EDT Certificate scanned and mailed to patient. [facility]08-13-2024 Miscellaneous Notes* Telephone Encounter - Emy Hanks - 04/14/2024 1:41 PM EDT Certificate scanned and mailed to patient. * Telephone Encounter - Shani Ramos MD - 04/14/2024 12:11 PM EDT Done. Shani Ramos MD 04/14/2024 12:11 PM * Telephone Encounter - Khalida Agarwal - 04/13/2024 1:42 PM EDT Patient states she needs a new certificate of blindness for a handicap placard. Khalida Agarwal April 13, 2024 1:44 PM documented in this encounterCleveland Clinic [facility]08-13-2024 Telephone encounter Note * Telephone Encounter - Shani Ramos MD - 04/14/2024 12:11 PM EDT Done. Shani Ramos MD 04/14/2024 12:11 PM [facility]08-12-2024 Telephone encounter Note* Telephone Encounter - Khalida Agarwal - 04/13/2024 1:42 PM EDT Patient states she needs a new certificate of blindness for a handicap placard. Khalida Agarwal April 13, 2024 1:44 PM [facility]08-10-2024 History of Present illness Narrative* Britta Gunn PA - 04/11/2024 12:02 PM EDT This note was created using StackBlazeriter. Subjective Sona Lynn is a 53 year old female. [...] bleb revision (bleb reduction) x 11/15/2022- Dr. Shani Ramos M.D. No date: S BALLOON,UTERINE ABLATION 15378 ALLERGIES Ultram [Tramadol Hcl], Darvocet A500 [Propoxyphene [...] Maternal Aunt 55 ovarian cancer Heart Son OR Ovarian cancer Maternal Grandmother Glaucoma No Family [...] ER evaluation. KENA Medrano documented in this encounterCleveland Clinic [facility]08-01-2024 Telephone encounter Note * Telephone Encounter - Lina Murillo LPN - 04/02/2024 8:17 AM EDT Patient notified of below results. Lina Murillo LPN [facility]08-01-2024 Miscellaneous Notes* Telephone Encounter - Lina Murillo LPN - 04/02/2024 8:17 AM EDT Patient notified of below results. Lina Murillo LPN * Telephone Encounter - Lina Murillo LPN - 04/02/2024 8:15 AM EDT ----- Message from Pennie Davis MD sent at 04/01/2024 7:07 PM EDT ----- You are negative for hep C and HIV documented in this encounterCleveland Clinic [facility]08-01-2024 Telephone encounter Note * Telephone Encounter - Lina Murillo LPN - 04/02/2024 8:15 AM EDT ----- Message from Pennie Davis MD sent at 04/01/2024 7:07 PM EDT ----- You are negative for hep C and HIV [facility]07-30-2024 History of Present illness Narrative* Pennie Davis MD - 03/31/2024 1:00 PM EDT CC: Patient presents with: Physical HPI Sona Lynn is a 53 year old female who presents today for 6-month follow-up. 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 Dr. Sparks is her plastic extrusion operator/labor specialist that she sees every 3 months. States she has not had a bleed in her eye at a long time, but at the same time she states she wouldn't see it at this point. Slowly progressive loss of peripheral vision. Patient also reports that she has issueswith calcified joints/arthritis. She has moved back to [place], so she can use the [employer] for going places, juany Pixel[employer]. She is engaged in a lot of activities, and is giving back to the community as much as she can in every way she can. She has a son in [place], and a brother near by. Her eyes [...] extremely active in the community. Takes the [email or web address] bus to [employer] every Saturday, [...] available full-time. Needs include home health aid, detention if applicable - says her boyfriend could [...] Had worked with an OT previously through [facility] in [place] previously who assisted with various techniques and [...] bleb revision (bleb reduction) x 11/15/2022- Dr. Shani Ramos M.D. S BALLOON,UTERINE ABLATION [address] ALLERGIES Ultram [Tramadol Hcl], Darvocet A500 [Propoxyphene [...] Maternal Aunt 55 ovarian cancer Heart Son OR Ovarian cancer Maternal Grandmother Glaucoma No Family [...] Counseled on healthy diet and regular exercise Pennie Davis MD documented in this encounterCleveland [facility]06-18-[facility]24 History of Present illness Narrative* Shani Ramos MD - 02/18/2024 1:35 PM EDT [...] Plan: As above Has been working with [facility] for - progressive pseudoxanthoma elasticum [...] management of this patient's care with the Resident/Fellow/Senior Graphic Designer, if applicable. I also have reviewed and agree with the assessment and plan as stated above and agree with all of its relevant components. Shani Ramos MD February 18, 2024 1:35 PM documented in this encounterCleveland Clinic Mentor [facility]06-18-2024 NoteDate of Procedure 02/18/2024. Aircraft Captain Information Head Irrigator: tri. Start time: 12:53 PM. Stop time: 1:04 PM. Notes -- OCT macula 02/18/2024 OD atrophy; OS scar/atrophy, full thickness holeZEISS 01-01-2024 Telephone encounter Note* Telephone Encounter - Calli Gerber APRN.DEBORAH - 01/01/2024 1:16 PM EDT Prempro is prescribed by gynecology Calli Gerber APRN.NREMT [facility]05-01-2024 Miscellaneous Notes* Telephone Encounter - Calli Gerber APRN.CNP - 01/01/2024 1:16 PM EDT Prempro is prescribed by gynecology Calli Gerber APRN.NREMT * Telephone Encounter - Sona Mcknight LPN - 01/01/2024 9:53 AM EDT [...] primary care: 03/31/2024 Please advise. Thank you. Sona Mcknight LPN. documented in this encounterCleveland [id number] Telephone encounter Note * Telephone Encounter - Sona Mcknight LPN - 01/01/2024 9:53 AM EDT [...] primary care: 03/31/2024 Please advise. Thank you. Sona Mcknight LPN. [facility]04-26-[facility]24 Telephone encounter Note* Telephone Encounter - Tori Morales MA - 12/27/2023 9:04 AM EDT Patient notified, [facility]04-26-2024 Miscellaneous Notes* Telephone Encounter - Tori Morales MA - 12/27/2023 9:04 AM EDT Patient notified, * Telephone Encounter - Luiza Anna APRN.CNP - 12/27/2023 7:29 AM EDT Gabapentin ordered as requested. Thank you Luiza Anna APRN.CNP * Telephone Encounter - Sona Mcknight LPN - 12/26/2023 2:02 PM EDT Patient calling to check status of request for the Gabapentin rx. She is going to [place] via the bus and was hoping to fruit picker rx while she was out. Please advise * Telephone Encounter - Sona Mcknight LPN - 12/25/2023 2:00 PM EDT Patient calling she had MRI of her right shoulder done at [facility]. She does not see Dr Brush until December 30 for possible injection or what treatment he plans to do. Patient was asking for a Gabapentin rx. She had taken it in the past. Patient said she did not have a tear, but not sure how to explain the results. Patient is going to ask [facility] to fax report, She is legally blind so she can not drive, to come to appt with provider right now. [facility], can get someone to fruit picker rx for her. Please advise documented in this encounterCleveland Clinic [facility]04-26-2024 Telephone encounter Note * Telephone Encounter - Luiza Anna APRN.CNP - 12/27/2023 7:29 AM EDT Gabapentin ordered as requested. Thank you Luiza Anna APRN.CNP [facility]04-25-2024 Telephone encounter Note* Telephone Encounter - Sona Mcknight LPN - 12/26/2023 2:02 PM EDT Patient calling to check status of request for the Gabapentin rx. She is going to [place] via the bus and was hoping to fruit picker rx while she was out. Please advise [facility]04-24-[facility]24 Telephone encounter Note* Telephone Encounter - Sona Mcknight LPN - 12/25/2023 2:00 PM EDT Patient calling she had MRI of her right shoulder done at [facility]. She does not see Dr Brush until December 30 for possible injection or what treatment he plans to do. Patient was asking for a Gabapentin rx. She had taken it in the past. Patient said she did not have a tear, but not sure how to explain the results. Patient is going to ask [facility] to fax report, She is legally blind so she can not drive, to come to appt with provider right now. Patient uses [facility] for her pharmacy, can get someone to fruit picker rx for her. Please advise [facility] History of Present illness Narrative* Destiney Pendleton APRN.DEBORAH - 12/24/2023 12:45 PM EDT Sona is a 53 year old who presents for an annual gynecologic exam without complaints. Postmenopausal: ablation 2011- no bleeding HRT use: Yes, prempro Last Pap: 07/03/2019 normal HPV: 07/01/2019 negative History of abnormal pap: Yes Last mammogram: 2023 normal History of abnormal mammogram: No Sexually active: No OB History T0 L3 SAB0 IAB0 Ectopic0 Multiple0 Live Births0 Silk Screen Printing Racker History LMP: Ablation Age at Menarche: Age at First : Age at Menopause: Silk Screen Printing Racker History Comments: Sexual Activity: Not Currently; Male [...] bleb revision (bleb reduction) x 11/15/2022- Dr. Shani Ramos M.D. S BALLOON,UTERINE ABLATION [id number] FAMILY HISTORY Problem Relation Age of Onset Heart Father Age 61 Heart Maternal Grandfather Cancer Paternal Grandmother Breast Cancer Maternal Aunt 55 ovarian cancer Heart Son OR Ovarian cancer Maternal Grandmother Glaucoma No Family [...] external genitalia normal, normal Bartholin's glands, urethra, [place]'s glands, no vulvar lesions, no cervical lesions, [...] year or sooner as needed Destiney Pendleton APRN.CNP documented in this encounterCleveland Clinic [facility]03-18-2024 History of Present illness Narrative* Adriana Vidal APRN.CNP - 11/18/2023 10:45 AM EDT Subjective HPI HPI Sona Lynn is a 53 year old female [...] bleb revision (bleb reduction) x 11/15/2022- Dr. Shani Ramos MJermaineD. S BALLOON,UTERINE ABLATION [address] ALLERGIES Ultram [Tramadol Hcl], Darvocet A500 [Propoxyphene [...] Maternal Aunt 55 ovarian cancer Heart Son OR Ovarian cancer Maternal Grandmother Glaucoma No Family [...] - PREDNISONE 10 MG TABLET Adriana Vidal APRN.NREMT documented in this encounterCleveland [facility]03-13-2024 Miscellaneous Notes* Telephone Encounter - Angelica [...] you. Angelica Arreola RN. documented in this encounterCleveland Clinic [facility]02-23-2024 History of Present illness Narrative* Alessandra Lora MA - 10/25/2023 9:41 AM EST POPULATION HEALTH NAVIGATION OUTREACH Action/FYI P/C to patient to schedule Medicare Wellness Exam, no answer. Left message for patient to return call. My chart message sent. Patient Identified by Name and : NO Outreach Outcome/Action Unable to reach patient: Left message Per Viceshart message sent Did you use a PCP flex slot to schedule this appointment? N/A Reason for Outreach Care Gap or Scheduling/Wellness visits Payer: Payor: BRAD[employer] CROSS AND BLUE [employer] / Plan: KELLY MEDICARE ADVANTAGE HMO / Product Type: HMO [...] 25, 2023 9:44 AM documented in this encounterCleveland Clinic [facility]02-09-2024 Miscellaneous Notes* Letter - Coordinator, Mammography - 10/11/2023 1:18 PM EST October 14, 2023 PID: [id number] Sona Lynn [address] [place] [address] Dear Ms. yLnn, We are pleased to inform you that [...] report will be [facility] at [facility] as part of your permanent medical record and are available for your continuing care. Thank you for allowing us to help in meeting your health care needs. Sincerely, Dr. Muñiz Interpreting Radiologist [facility] (Normal over 40) documented in this encounterCleveland Clinic [facility]02-08-2024 History of Present illness Narrative* Carmen Sol, Mammo Tech - 10/10/2023 12:50 PM EST Radiology Service Progress Note PATIENT NAME: Sona Lynn DATE OF SERVICE: October 10, 2023 [...] PATIENT PRESENTS WITH AN IMPLANTABLE OR ATTACHED DENTAL TECHNICIAN: No RADIOLOGY DEPARTMENT: Mammography PERIPHERAL IV DATA: Not applicable SIGNED BY: Rubin Alicea October 10, 2023 1:08 PM documented in this encounterCleveland Clinic [facility]02-06-2024 Miscellaneous Notes* Telephone Encounter - Dara Valdez RN - 10/08/2023 10:43 AM EST Cande SOTOmarket developer at [facility] calls to report that completed health risk assessment care plan update was done and can be reviewed in availability portal. Cande states that provider can attend care team meeting by calling Cande. Dara Valdez RN documented in this encounterCleveland Clinic [facility]02-02-2024 History of Present illness Narrative* Mary Salinas MA - 10/04/2023 9:40 AM EST POPULATION HEALTH NAVIGATION OUTREACH Action/I I spoke with the patient and scheduled her mammogram. Patient needs: mammogram, flu Patient Identified by Name and : YES, via phone Outreach Outcome/Action Spoke to patient / parent / legal guardian: Patient scheduled Did you use a PCP flex slot to schedule this appointment? 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 I have seen and examined this patient. I have discussed the case and the management of this patient's care with the Resident/Fellow/Senior Graphic Designer, if applicable. I also have reviewed and agree with the assessment and plan as stated above and agree with all of its relevant components. Shani Ramos MD August 16, 2023 7:06 PM documented in this encounterCleveland Clinic [facility]11-21-2023 Miscellaneous Notes* Telephone Encounter - Celeste [...] notify patient. Amy Adams documented in this encounterCleveland Clinic [facility]09-28-2023 Nurse Note* Mel Garcia RN - 05/30/2023 2:[address] Connelly at bedside to discuss procedure/findings with patient and her friend. [facility]09-28-[facility] Nurse Note* Mel Garcia RN - 05/30/2023 2:[address] Connelly at bedside to discuss procedure/findings with patient and her friend. documented in this encounterCleveland Clinic Mentor Hospital09-28-2023 Anesthesiology Preoperative evaluation and management note* Anesthesia PreOp - Andry Connelly MD - 05/30/2023 1:00 PM EDT HISTORY AND PHYSICAL Sona Lynn, 53 year old female Current history [...] Moderate Additional Comments: None Andry Connelly MD [facility] Work Phone: 1(348) 402-692109-28-2023 Miscellaneous Notes* Anesthesia PreOp - Andry Connelly MD - 05/30/2023 1:00 PM EDT HISTORY AND PHYSICAL Sona Lynn, 53 year old female Current history [...] None Andry Connelly MD documented in this encounterCleveland Clinic [facility]09-19-2023 History of Present illness Narrative* Virginia Avalos PA-C - 05/21/2023 11:13 AM EDT CC: Patient presents with: F/U 6 months HPI Sona Lynn is a 53 year old female who presents today for 6-month follow-up, and to discuss initiating home health services PMH significant for PXE (pseudoxanthoma elasticum), 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 Dr. Sparks is her plastic extrusion operator/labor specialist that she sees every 3 months. States she has not had a bleed in her eye at a long time, but at the same time she states she wouldn't see it at this point. Slowly progressive loss of peripheral vision. Patient also reports that she has issueswith calcified joints/arthritis. Just sold her home here in [place] and moved to [place] with her boyfriend, and her boyfriend doesn't feel like she's entirely safe in her day to day activities. Patient called [facility] and they advised that she have a home health order placed and faxed over to them-reports she's not sure all that she can be helped with. She is extremely active in the community. Takes the [employer] bus to [employer] every Saturday, [...] available full-time. Needs include home health aid, detention if applicable - says her boyfriend could [...] Had worked with an OT previously through [facility] in [place] previously who assisted with various techniques and resources to help making ADLs easier, but states she hasn't continued to pursue this because it's never covered by insurance Pt reports that she's very much so independent and never wants to maur helpless or feel sorry for herself, but [...] bleb revision (bleb reduction) x 11/15/2022- Dr. Shani Ramos M.D. S BALLOON,UTERINE ABLATION [address] ALLERGIES Ultram [Tramadol Hcl], Darvocet A500 [Propoxyphene [...] Maternal Aunt 55 ovarian cancer Heart Son OR Ovarian cancer Maternal Grandmother Glaucoma No Family [...] once patient finds out from insurance - [facility] 2. PXE (pseudoxanthoma elasticum) - ICD9: 757.39, ICD10: Q82.8 See above - [facility] 3. Trigger finger, unspecified finger, unspecified laterality - ICD9: 727.03, ICD10: M65.30 Refills provided on meloxicam per pt request - [facility] 4. Mixed hyperlipidemia - [...] plan. Virginia Avalos PA-C documented in this encounterCleveland Clinic [facility]09-06-2023 Miscellaneous Notes* Telephone Encounter - Sita Mauricio LPN - 05/08/2023 9:25 AM EDT PATIENT NOTIFIED OF SAME. * Telephone Encounter - Ariadne Zaidi APRN.CNP - 05/07/2023 4:28 PM EDT Printed, will sign, please call patient to fruit picker. Thanks! * Telephone Encounter - Lina Murillo LPN - 05/07/2023 1:16 PM EDT Patient is needing to renew her handicapped placard, it expires this month. Please call when approved and ready for pickup. Lina Murillo LPN documented in this encounterCleveland Clinic [facility]09-01-2023 Miscellaneous Notes* Telephone Encounter - Fern [...] notify patient. Marnie Adams documented in this encounterCleveland Clinic [facility] Hospital08-29-2023 Instructions* Patient Instructions* Cande Pozo PA-C [...] THESE DIRECTIONS, YOUR COLONOSCOPY WILL BE CANCELLED. [place]ant Instructions: Your bowel must be empty so [...] If you do not have a responsible cdl a driver (family member or friend) withyou to take you home, your exam cannot be done with sedation and will be cancelled. Please bring a list of all of your current medications, including any Bcma-cig-Pokaidb medications with you. Medications If you take [...] your exam. 2 08/2019 documented in this encounterCleveland Clinic [facility] Hospital08-29-2023 History of Present illness Narrative* Cande Pozo PA-C - 04/30/2023 12:59 PM EDT CHIEF COMPLAINT: Patient presents with: GERD: Peptic ulcer at age 14. She is not sure if she has blood in her stool. Taking Tums more often. Thinks most symptoms are due to PXE HPI: Sona Lynn is a 53 year old female [...] Abs Lymph 1.00 - 4.00 k/uL 1.42 Greenlee% % 9.8 Abs Greenlee <0.87 k/uL 0.58 Eosin% % 3.1 Abs [...] bleb revision (bleb reduction) x 11/15/2022- Dr. Shani Ramos M.D. S BALLOON,UTERINE ABLATION [address] Allergies: ALLERGIES Allergen Reactions Ultram [Tramadol Hc* [...] Maternal Aunt 55 ovarian cancer Heart Son OR Ovarian cancer Maternal Grandmother Glaucoma No Family [...] which included preparing to see the patient, [id number] patient care, completing clinical documentation, obtaining and/or reviewing separately obtained history, performing a medically appropriate examination, counseling and educating the pat ient/family/caregiver, ordering medications, tests, or procedures, communicating with other HCPs (not separately reported), independently interpreting results (not separately reported), communicatingresults to the patient/family/caregiver, and care coordination (not separately reported). Cande Pozo PA-C April 30, 2023 1:23 PM documented in this encounterCleveland Clinic [facility] Hospital08-24-2023 History of Present illness Narrative* Massimo Roberts MD - 04/25/2023 2:12 PM EDT Massimo Roberts MD Department of Orthopaedics Orthopaedics [address] [facility] [address] Dept: [phone] Dept April 25, 2023 CHIEF COMPLAINT: Established [...] her back after nerve testing. OBJECTIVE: Ms. Sona Lynn is a pleasant 53 year old [...] bleb revision (bleb reduction) x 11/15/2022- Dr. Shani Ramos M.D. S BALLOON,UTERINE ABLATION [address] Medications: Current Outpatient Medications Medication Sig keTORolac [...] anxiety) Massimo Roberts MD documented in this encounterCleveland Clinic [facility]08-14-2023 Miscellaneous Notes* Telephone Encounter - Sona Mcknight LPN - 04/15/2023 1:46 PM EDT [...] cost. Starla Mckeon LPN documented in this encounterCleveland Clinic [facility]06-20-2023 History of Present illness Narrative* Shani Ramos MD - 02/19/2023 3:06 PM EDT [...] management of this patient's care with the Resident/Fellow/Senior Graphic Designer, if applicable. I also have reviewed and agree with the assessment and plan as stated above and agree with all of its relevant components. Shani Ramos MD February 19, 2023 3:11 PM documented in this encounterCleveland Clinic [facility]05-30-2023 Miscellaneous Notes* Telephone Encounter - Celeste [...] you. Celeste Cardona LPN documented in this encounterCleveland Clinic [facility] Hospital05-02-2023 Discharge summary Author Sharifa Morrissey [facility] January 01, 2023 12:18pm Note Date/Time January 01, 2023 12:18p m [facility] Occupational Therapy [facility] [address] [place] [address]. [address] [place] [address] / REHABILITATION SERVICES DISCHARGE SUMMARY MR#: [id number] Acct: [id number] Name: SONA LYNN Rep #: [id number] : 1970 52 From: Sharifa CARBAJAL/ISABELLA Mcmanus Referring : Status: REG RCR Eval Date: Discharge Date: It has been my pleasure to treat SONA LYNN under orders from TAINA FAN, for the diagnosis of right RF trigger finger and left MF trigger finger for a total of 4 visit(s). Please see the following information for a summary of their discharge status. % Improvement: 80 Objective/Function: right newspaper manager strength 50#. left newspaper manager strength 40# (US completed previous to newspaper manager). right RF PIP -5/45. left MF PIP -15/50 Patient Goals: Regain Mobility, Regain Strength, Decrease Pain, Use Hand/Wrist/Arm Normally Again Goal:Daily scar massage when approriate: Yes Goal:ROM equal to unaffected hand: Yes Goal:Platinum Smith/Pinch strength at least 75% of unaffected hand: [...] please fell free to call me at [phone]. Thank you for the referral of this patient. Sincerely, RAVEN Her/Yonathan, CHT <Electronically signed by Sharifa CARBAJAL/ISABELLA Mcmanus> 01/01/23 1218 CC: Dr. Pennie Davis MD; TAINA FAN ~ MK Signed [facility] Work Phone: 1(943) 318-709604-12-2023 Miscellaneous Notes* Telephone Encounter - Celeste Cardona [...] RX INSTRUCTIONS: Patient needs 14 days to [facility] today - she is going today to [facility] and since she cannot drive due to legally blind, please send JUVE so she can fruit picker while at [facility] this morning. Please send 90 days to [facility] Rx Mail order. Please call patient once 14 days is sent to [facility]. Patient aware RX will be sent to pharmacy. No need to notify patient. Patient aware RX escripted to mail away pharmacy. No need to notify patient. Melly Adams' documented in this encounterCleveland Clinic [facility]04-04-2023 Instructions* Patient Instructions* Shani Ramos MD - 12/04/2022 11:15 AM EDT Continue Prednisolone (pink/white) 1 drop LEFT eye 4 x daily Continue Ketorolac (saunders) 1 drop LEFT eye 4 x daily OK to use refresh or gel drop documented in this encounterCleveland Clinic [facility] Hospital04-04-2023 History of Present illness Narrative* Shani Ramos MD - 12/04/2022 11:09 AM EDT [...] management of this patient's care with the Resident/Fellow/Senior Graphic Designer, if applicable. I also have reviewed and agree with the assessment and plan as stated above and agree with all of its relevant components. Shani Ramos MD December 04, 2022 11:14 AM documented in this encounterCleveland Clinic [facility]03-23-2023 Instructions* Patient Instructions* Shani Ramos MD - 11/22/2022 12:23 PM EDT STOP Polymyxin trimethoprim (clear/white) Continue Prednisolone (pink/white) 1 drop LEFT eye 4 x daily Continue Ketorolac (saunders) 1 drop LEFT eye 4 x daily OK to use refresh OK to stop documented in this encounterCleveland Clinic [facility]03-23-2023 History of Present illness Narrative* Shani Ramos MD - 11/22/2022 12:20 PM EDT [...] management of this patient's care with the Resident/Fellow/Senior Graphic Designer, if applicable. I also have reviewed and agree with the assessment and plan as stated above and agree with all of its relevant components. Shani Ramos MD November 22, 2022 12:22 PM [...] management of this patient's care with the Resident/Fellow/Senior Graphic Designer, if applicable. I also have reviewed and agree with the assessment and plan as stated above and agree with all of its relevant components. Shani Ramos MD September 25, 2022 3:18 PM documented in this encounterCleveland Clinic [facility]03-20-2023 Miscellaneous Notes* Telephone Encounter - Henrik Chen MD - 11/19/2022 6:38 PM EDT Call from Sona Lynn via answering service on 11/17/2022. At [...] Saturday evening dileep seen. She lives in [place] and does not have transportation available. We discussed being seen at the ED for evaluation and potential evaluation by an plastic extrusion operator from [facility]. I advised that if she is not seen in the ED on 11/18/2022 that she either follow-up with Dr. Torres in the [facility] [place] office or contact [facility] to be seen there. She has seen doctors at that office in the past. Henrik Chen MD documented in this encounterCleveland Clinic [facility]03-20-2023 History of Present illness Narrative* Valentine [...] 19, 2022 3:49 PM documented in this encounterCleveland Clinic [facility]03-20-2023 Miscellaneous Notes* Telephone Encounter - Khalida Agarwal - 11/19/2022 3:37 PM EDT Spoke with patient and informed her of Dr Ramos' response. Patient states she was able to see Dr Torres for an appointment today as well. She will keep appointment on and inform the office if she develops any changes in symptoms. * Telephone Encounter - Shani Ramos MD - 11/19/2022 3:29 PM EDT Notes reviewed. No need to be sooner unless she develops new flashes or floaters. As the [place] doctor discussed with her, this can sometimes occur and we can often treat it with alaser in the office. We can discuss at her next appointment. Shani Ramos MD 11/19/2022 3:31 PM * Telephone Encounter - Khalida Agarwal - 11/19/2022 9:46 AM EDT Received office notes from [place]. Patient was seen on 11/18 at [facility] regarding abnormal pupil and hemorrhage [...] of office. * Telephone Encounter - Khalida Stefano - 11/19/2022 8:29 AM EDT Patient reports she had surgery with Dr Ramos last week and she was also seen at the [facility]. She states that the doctor at that office removed eye patch and noticed a cosmetic issuewhere vitreous gel landed below pupil. I asked patient to have [place] fax over their notes so I can [...] 19, 2022 8:36 AM documented in this encounterCleveland [facility] History of Present illness Narrative* Taina Fan PA-C - 11/19/2022 2:59 PM EDT Taina Fan PA-C Department of Orthopaedics Orthopaedics [address] [address] Dept: [phone] Dept November 19, 2022 CHIEF COMPLAINT: Established [...] for OT was placed and faxed to [facility]. We discussed proper hand washing, no soaking [...] greater than right. Imaging: Deferred today Ms. Sona Lynn was advised as to contrast therapies [...] [Hydrocodone-Acetaminophen] This note was partially generated using Songbird voice recognition system, and there may be [...] site. Alis Eid LPN documented in this encounterCleveland Clinic [facility]03-17-2023 Instructions* Patient Instructions* Shani Ramos MD - 11/16/2022 9:44 AM EDT [...] Shadow in peripheral vision documented in this encounterCleveland Clinic [facility]03-17-2023 History of Present illness Narrative* Shani Ramos MD - 11/16/2022 9:41 AM EDT [...] management of this patient's care with the Resident/Fellow/Senior Graphic Designer, if applicable. I also have reviewed and agree with the assessment and plan as stated above and agree with all of its relevant components. hSani Ramos MD November 16, 2022 9:44 AM [...] management of this patient's care with the Resident/Fellow/Senior Graphic Designer, if applicable. I also have reviewed and agree with the assessment and plan as stated above and agree with all of its relevant components. Shani Ramos MD September 25, 2022 3:18 PM documented in this encounterCleveland Clinic [facility]03-16-2023 History of Past illness Narrative* Problem Noted Date Resolved Date Nuclear senile cataract of left eye 11/15/2022 11/15/2022 Combined forms of age-related cataract of right eye 06/25/2022 06/25/2022 Photopsia 06/25/2022 06/25/2022 documented as of this encounter (statuses as of 11/16/2022) [facility] of Past illness Narrative* Problem Noted Date Resolved Date Nuclear senile cataract of left eye 11/15/2022 11/15/2022 Combined forms of age-related cataract of right eye 06/25/2022 06/25/2022 Photopsia 06/25/2022 06/25/2022 documented as of this encounter (statuses as of 11/19/2022) [facility] of Past illness Narrative* Problem Noted Date Resolved Date Nuclear senile cataract of left eye 11/15/2022 11/15/2022 Combined forms of age-related cataract of right eye 06/25/2022 06/25/2022 Photopsia 06/25/2022 06/25/2022 documented as of this encounter (statuses as of 11/20/2022) [facility] of Past illness Narrative* Problem Noted Date Resolved Date Nuclear senile cataract of left eye 11/15/2022 11/15/2022 Combined forms of age-related cataract of right eye 06/25/2022 06/25/2022 Photopsia 06/25/2022 06/25/2022 documented as of this encounter (statuses as of 11/20/2022) [facility] of Past illness Narrative* Problem Noted Date Resolved Date Nuclear senile cataract of left eye 11/15/2022 11/15/2022 Combined forms of age-related cataract of right eye 06/25/2022 06/25/2022 Photopsia 06/25/2022 06/25/2022 documented as of this encounter (statuses as of 11/26/2022) [facility] of Past illness Narrative* Problem Noted Date Resolved Date Nuclear senile cataract of left eye 11/15/2022 11/15/2022 Combined forms of age-related cataract of right eye 06/25/2022 06/25/2022 Photopsia 06/25/2022 06/25/2022 documented as of this encounter (statuses as of 12/02/2022) [facility] of Past illness Narrative* Problem Noted Date Resolved Date Nuclear senile cataract of left eye 11/15/2022 11/15/2022 Combined forms of age-related cataract of right eye 06/25/2022 06/25/2022 Photopsia 06/25/2022 06/25/2022 documented as of this encounter (statuses as of 12/05/2022) [facility] of Past [facility] Narrative* Problem Noted Date Resolved Date Nuclear senile cataract of left eye 11/15/2022 11/15/2022 Combined forms of age-related cataract of right eye 06/25/2022 06/25/2022 Photopsia 06/25/2022 06/25/2022 documented as of this encounter (statuses as of 12/13/2022) [facility] Past illness Narrative* Problem [...] of this encounter (statuses as of 01/30/2023) [facility] Narrative* Problem [...] of this encounter (statuses as of 02/21/2023) [facility] Narrative* Problem [...] of this encounter (statuses as of 04/16/2023) [facility] illness Narrative* Problem [...] of this encounter (statuses as of 04/30/2023) [facility] Narrative* Problem [...] of this encounter (statuses as of 05/03/2023) [facility] Narrative* Problem [...] of this encounter (statuses as of 05/08/2023) [facility] Narrative* Problem [...] of this encounter (statuses as of 05/23/2023) [facility] Narrative* Problem [...] of this encounter (statuses as of 05/28/2023) [facility] Narrative* Problem [...] of this encounter (statuses as of 06/25/2023) [facility] Narrative* Problem [...] of this encounter (statuses as of 07/24/2023) [facility] Narrative* Problem [...] of this encounter (statuses as of 09/02/2023) [facility] Narrative* Problem [...] of this encounter (statuses as of 10/04/2023) [facility] Narrative* Problem [...] of this encounter (statuses as of 10/08/2023) [facility] Narrative* Problem [...] of this encounter (statuses as of 10/11/2023) [facility] Narrative* Problem [...] of this encounter (statuses as of 10/15/2023) [facility] Narrative* Problem [...] of this encounter (statuses as of 10/25/2023) [facility] Narrative* Problem [...] of this encounter (statuses as of 11/13/2023) [facility] Past illness Narrative* Problem [...] of this encounter (statuses as of 11/18/2023) [facility] Narrative* Problem [...] of this encounter (statuses as of 05/22/2023) [facility] Miscellaneous Notes* Telephone Encounter - Mauricio Bahena - 11/13/2022 3:36 PM EDT Called and informed patient to arrive at [address] [place] [address] at 10:45 am for 11/15/22 surgerywith Shani Ramos MD. Also reminded patient to refrain from eating or drinking for 8 hours prior to arrival for surgery, and to begin eyedrops in the left eye on 11/13/22. Patient states understanding and is agreeable. documented in this encounterC[facility]03-06-2023 Miscellaneous Notes* Telephone Encounter - Chana Mao Ma - 11/05/2022 11:19 AM EST I called and spoke with patient. She will fruit picker more hibiclens. Packet left at Orth[facility] senior front end engineer. * Telephone Encounter - Natasha Jurado LPN - 11/05/2022 10:28 AM EST Patient called. Verified name and date of . Patient states she has surgery scheduled Saturdayand misplaced the packet of hand shrimp cleaner needed for the day of surgery. Can patient fruit picker anotherpacket? Natasha Jurado LPN documented in this encounterC[facility]03-03-2023 Miscellaneous Notes* Telephone Encounter - Chana [...] phone call back Please advise patient at [phone]. Thank you Mary Cochran LPN documented in this encounterC[facility]03-01-2023 NoteHNO ID: [id number] Author: Parish Perez, OT/L Service: ? Author Type: Occupational Therapist Type: Progress Notes Filed: 10/31/2022 11:47 AM Note Text: Episode Visit Count: 3 Therapist That Will Accept/Oversee The Plan Of Care: PARISH PEREZ Start of Care Date: 09/19/22 Onset Date: 11/16/17 Plan of Care Certification Date: 09/19/22 Next Certification Due Date: 11/18/22 Patient Identified by Name and Date of : Yes REHABILITATION AND SPORTS THERAPY OCCUPATIONAL THERAPY TREATMENT NOTE ASSESSMENT: Sona Lynn tolerated the session with no issues. She demonstrated improvements in FOLLOW THROUGH OF USING ADAPTIVE TECHNIQUES AND DEVICES FOR IADLS/ADLS. The patient will continue to benefit from ongoing skilled occupational therapy to progress toward set goals. Current Frequency: 1x every other week Duration: 12 weeks Total Number of Visits Planned: 6 Planned Treatment Interventions: Therapeutic exercise (99428), Self-group home management (29178), Patient/Family/Caregiver Education, Functional training, Community / Work [...] She did report benefit with trialing the julian fit over filters issued on loan (dark [...] COMPLETED. Skilled Intervention: Patient education as noted. Self-Snf Management: 1: COOKING: provided her with black [...] procedure. She is pursuing financial assistance from [employer] [place] and has the letter with equipment recommendations from Dr. Stalker and application to submitt but was instructed [...] continue to borrow the dark and light julian fit over filters for inside and outside use until the next time she is seen in OP OT. Instructed her to locate printed patient education materials and read through same d/t it appears that she has NOT completed this recommendation since packet of materials/education/resources was issued to her. 6: TO INCREASE PARTICIPATION WITH [employer]:- trialed the [employer]ASSES and was able to pick [...] review her paperwork and recommendations made: *contact [employer] services in [facility] to verify need of needing two written estimates;*if she does require two estimates then she was provided with another agency to assist w/ selling the recommended devices (MAGNIFIERS AND MORE) and (more content not included)...[facility]03-01[facility] History of Present illness Narrative * Parish Perez, OT/L - 10/31/2022 9:45 AM EST Episode Visit Count: 3 Therapist That Will Accept/Oversee The Plan Of Care: PARISH PEREZ Start of Care Date: 09/19/22 Onset Date: 11/16/17 Plan of Care Certification Date: 09/19/22 Next Certification Due Date: 11/18/22 Patient Identified by Name and Date of : Yes REHABILITATION AND SPORTS THERAPY OCCUPATIONAL THERAPY TREATMENT NOTE ASSESSMENT: Sona Lynn tolerated the session with no issues. She demonstrated improvements in FOLLOW THROUGH OF USING ADAPTIVE TECHNIQUES AND DEVICES FOR IADLS/ADLS. The patient will continue to benefit from ongoing skilled occupational therapy to progress toward set goals. Current Frequency: 1x every other week Duration: 12 weeks Total Number of Visits Planned: 6 Planned Treatment Interventions: Therapeutic exercise (75665), Self-group home management (76542), Patient/Family/Caregiver Education, Functional training, Community / Work [...] She did report benefit with trialing the julian fit over filters issued on loan (dark [...] COMPLETED. Skilled Intervention: Patient education as noted. Self-Snf Management: 1: COOKING: provided her with black [...] procedure. She is pursuing financial assistance from [employer] [place] and has the letter with equipment recommendations [...] continue to borrow the dark and light julian fit over filters for inside and outside use until the next time she is seen in OP OT. Instructed her to locate printed patient education materials and read through same d/t it appears that she has NOT completed this recommendationsince packet of materials/education/resources was issued to her. 6: TO INCREASE PARTICIPATION WITH [employer]:- trialed the [employer] and wasable to pick out [...] did review her paperwork and recommendations made:*contact [employer] services in [facility] to verify need of needing [...] That Will Accept/Oversee The Plan Of Care: PARISH PEREZ Start of Care Date: 09/19/22 Onset Date: 11/16/17 Plan of Care Certification Date: 09/19/22 Next Certification Due Date: 11/18/22 Patient Identified by Name and Date of : Yes REHABILITATION AND SPORTS THERAPY OCCUPATIONAL THERAPY PROGRESS REPORT PLAN OF CARE UPDATE: Assessment: Sona Lynn demonstrates moderate improvement in IADLS/ADLS. She [...] Planned: 6 Planned Treatment Interventions: Therapeutic exercise (18501), Self-group home management (75859), Patient/Family/Caregiver Education, Functional training, Community / Work [...] 77 Total Treatment Time Minutes (timed/untimed): 77 Parish Perez OT/Yonathan documented in this encounterCleveland Clinic [facility]02-24-2023 Miscellaneous Notes* Telephone Encounter - Viviana Dimas - 10/26/2022 9:40 AM EST Patient left message in surgery scheduling to reschedule 10/29/22 IOL measurements (ascan). Called patient and offered 11/08/22 at 8:30 am. Patient declines due to has hand surgery the day before. States she will arrange transportation with a family member (called [facility] too late to set up through them). Will keep 10/29/22 as scheduled. documented in this encounterCleveland Clinic [facility]02-21-2023 History of Present illness Narrative* Mel Fleming RDMS - 10/23/2022 4:00 PM EST Radiology Service Progress Note PATIENT NAME: Sona Lynn DATE OF SERVICE: October 23, 2022 [...] 23, 2022 4:42 PM documented in this encounterCleveland Clinic [facility]02-15-2023 NoteHNO ID: [id number] Author: Parish Perez OT/Yonathan Service: ? Author Type: Occupational Therapist Type: Progress Notes Filed: 10/17/2022 12:21 PM Note Text: Episode Visit Count: 2 Therapist That Will Accept/Oversee The Plan Of Care: PARISH PEREZ Start of Care Date: 09/19/22 Onset Date: 11/16/17 Plan of Care Certification Date: 09/19/22 Next Certification Due Date: 11/18/22 Patient Identified by Name and Date of : Yes REHABILITATION AND SPORTS THERAPY OCCUPATIONAL THERAPY TREATMENT NOTE ASSESSMENT: Sona Lynn tolerated the session with no issues. [...] OBJECTIVE MEASURES WITH LEVEL OF FUNCTION: TREATMENT: Self-Snf Management: 1: FUNCTIONAL COMMUNICATION TRAINING: reading recipe/grocery [...] level with same. She was provided needle turbine assembler, and pre threaded needles with colored thread [...] glare: she did find that the light julian fit over filters were beneficial for outside and required instruction to consider using same for inside when lighting conditions in her home or other areas were too bright/causing too much glare. She id. recalling same from reading through the patient education materials that were offered to her during previous treatment session. Did trial the dark JULIAN NOIR 10 fit over filters and issued [...] clips. 6: Threading a needle/sewing: issued needle turbine assembler and self threaded needles and with use of the floor stand JIM ALMANZAR she will practice with same but did not formally have her practice on this date. Provided instruction and education and demonstration and she was familiar w/ the filament needle turbine assembler presented. 7: Eating neatly: on the self [...] if needed in t (more content not included)...[facility] 10-17-2022 History of Present illness Narrative* Parish Perez OT/Yonathan - 10/17/2022 10:38 AM EST Episode Visit Count: 2 Therapist That Will Accept/Oversee The Plan Of Care: PARISH PEREZ Start of Care Date: 09/19/22 Onset Date: 11/16/17 Plan of Care Certification Date: 09/19/22 Next Certification Due Date: 11/18/22 Patient Identified by Name and Date of : Yes REHABILITATION AND SPORTS THERAPY OCCUPATIONAL THERAPY TREATMENT NOTE ASSESSMENT: Sona Lynn tolerated the session with no issues. [...] OBJECTIVE MEASURES WITH LEVEL OF FUNCTION: TREATMENT: Self-Snf Management: 1: FUNCTIONAL COMMUNICATION TRAINING: reading recipe/grocery [...] level with same. She was provided needle turbine assembler, and pre threaded needles with colored thread [...] glare: she did find that the light julian fit over filters were beneficial for outside and required instruction to consider using same for inside when lighting conditions in her home or other areas were too bright/causing too much glare. She id. recalling same from reading through the patient education materials that were offered to her during previous treatment session. Did trial thedark JULIAN NOIR 10 fit over filters and issued [...] clips. 6: Threading a needle/sewing: issued needle turbine assembler and self threaded needles and with use of the floor stand JIM ALMANZAR she will practice with same but did not formally have her practice on this date. Provided instruction and education and demonstration and she was familiar w/ the filament needle turbine assembler presented. 7: Eating neatly: on the self [...] AND WHITE CONTRAST MARKING TAPE,- AND DARK JULIAN FITOVER FILTERS. SHE WAS ISSUED THE FLOOR STAND JIM LITE THAT WAS DONATED TO THIS CLINIC AND TO PRACTICE WITH SAME (HER CIVIL DRAFTER WILL CARRY THIS IN FOR HER D/T INCREASED WEIGHT IN ORDER TO ENSURE HER SAFETY) AND WILL CONT. TO BORROW THE LIGHT JULIAN FIT OVER FILTERS. WAS ISSUED ADDITIONAL BOLD LINE PAPER TABLETS, SOCK CLIPS, NEEDLE ROOF CEMENT AND PAINT MAKER, SELF THREADED NEEDLES AND A LED FLASHLIGHT. [...] 70 Total Treatment Time Minutes (timed/untimed): 70 Parish Perez OT/L documented in this encounterCleveland Clinic [facility]02-14-2023 History of Present illness Narrative* Pennie Davis MD - 10/16/2022 1:12 PM EST Reason for Visit Patient presents with: Physical: preop clearance for surgeries on 11/07/22, 11/15/22 Sona Lynn is a 52 year old female [...] EXTRACAP,INSERT LENS Right 06/25/2022 S [place] [address] FAMILY HISTORY Problem Relation Age of Onset Heart Father Age 61 Heart Maternal Grandfather Cancer Paternal Grandmother Breast Cancer Maternal Aunt 55 ovarian cancer Heart Son OR Ovarian cancer Maternal Grandmother Glaucoma No Family [...] losing vision of what ever is remaining Pennie Davis MD documented in this encounterCleveland Clinic [facility]02-07-2023 History of Present illness Narrative* Brunilda Torres RT(R) - 10/09/2022 12:50 PM EST Radiology Service Progress Note PATIENT NAME: Sona Lynn DATE OF SERVICE: October 09, 2022 [...] 09, 2022 12:50 PM documented in this encounterCleveland Clinic [facility]02-02-2023 Miscellaneous Notes* Telephone Encounter - Clint Brennan RN - 10/04/2022 8:15 AM EST Patient reports she is picking up the Rx today. * Telephone Encounter - Pennie Davis MD - 10/03/2022 7:58 PM EST Called in z jeanine for the patient Regards, Pennie Davis MD * Telephone Encounter - Sona Mcknight LPN - 10/02/2022 10:26 AM EST Patient calling cancelled her appt today for her physical since she is sick, she felt to weak to come in. Patient said she has sinus infection, headache, congestion one side of her nose, using salinenasal spray, scratchy throat, post nasal drainage, yellow secretions when she blows. Patient said she can not drive and can have friend fruit picker rx. Patient is asking for [facility] rx to be sent to [facility] please. Please advise documented in this encounterCleveland Clinic [facility]01-31-2023 Miscellaneous Notes* Telephone Encounter - Chana Mao Ma - 10/02/2022 8:44 AM EST Surgery has been scheduled as requested. * Telephone Encounter - Chana Mao Ma - 10/01/2022 4:00 PM EST Surgical request completed for right ring and left middle trigger finger releases at [facility] on 11/02[facility]2022. Post op appointments have been scheduled and mailed to patient. documented in this encounterCleveland Clinic [facility]01-30-2023 History of Present illness Narrative* Massimo Roberts MD - 10/01/2022 2:19 PM EST Massimo Roberts MD Department of Orthopaedics Orthopaedics [address] [address] Dept: [phone] Dept October 01, 2022 CHIEF COMPLAINT: Established [...] in getting the trigger releases done. Ms. Sona Lynn was advised as to contrast therapies and/or to take analgesics/anti-inflammatories as needed and all contraindications were reviewed. OBJECTIVE: Ms. Sona Lynn is a pleasant 52 year old [...] EXTRACAP,INSERT LENS Right 06/25/2022 S BALLOON,[place] [address] Medications: Current Outpatient Medications Medication Sig mometasone [...] anxiety) Massimo Roberts MD documented in this encounterCleveland Clinic [facility]01-30-2023 History of Present illness Narrative* Laura Pimenetl RT(R) - 10/01/2022 1:30 PM EST Radiology Service Progress Note PATIENT NAME: Sona Lynn DATE OF SERVICE: October 01, 2022 [...] 01, 2022 2:16 PM documented in this encounterCleveland Clinic [facility]01-27-2023 Miscellaneous Notes* Letter - Mammography Coordinator - 09/28/2022 3:14 PM EST October 01, 2022 PID: [id number] Sona Lynn [address] [place] [id number] Dear Ms. Lynn, Your recent breast imaging exam on 09/27/2022 showed a possible finding that requires additional imaging studies for a complete evaluation. Most such findings are probably benign (not cancer). If you have a healthcare provider who ordered/prescribed your screening mammogram: Please call [phone] or EXT: [phone] to schedule an appointment for your additional [...] and reports are [facility] as part of your permanent medical record, and are available for your continuing care. Thank you for allowing us to help in meeting your health care needs. Sincerely, Dr. Osei Interpreting Radiologist [facility] (Additional imaging) documented in this encounterCleveland Clinic [facility]01-26-2023 History of Present illness Narrative* Kimberley De Los Santos Mammo Tech - 09/27/2022 1:10 PM EST Radiology Service Progress Note PATIENT NAME: Sona Lynn DATE OF SERVICE: September 27, 2022 [...] 27, 2022 1:05 PM documented in this encounterCleveland Clinic [facility]01-24-2023 History of Present illness Narrative* Shani Ramos MD - 09/25/2022 3:17 PM EST [...] @ 2' ecc Glare Testing: Visual Function: Sona Lynn states that the decline in vision from the cataract impedes her abilities as listed in the HPI, as well as other activities of daily living. Sona Bustos Aamir has confirmed that she is [...] surgery with lens implantation were discussed with Sona Bustos [place] in detail. she appeared to understand and asked that I proceed with plans for surgery. 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 The surgeon/proceduralist and patient have [...] management of this patient's care with the Resident/Fellow/Senior Graphic Designer, if applicable. I also have reviewed and agree with the assessment and plan as stated above and agree with all of its relevant components. Shani Ramos MD September 25, 2022 3:18 PM [...] management of this patient's care with the Resident/Fellow/Senior Graphic Designer, if applicable. I also have reviewed and agree with the assessment and plan as stated above and agree with all of its relevant components. Shani Ramos MD September 25, 2022 3:18 PM documented in this encounterC[facility] NoteHNO ID: [id number] Author: Parish Perez OT/L Service: ? Author Type: Occupational Therapist Type: Progress Notes Filed: 09/19/2022 5:47 PM Note Text: Episode Visit Count: 1 Therapist That Will Accept/Oversee The Plan Of Care: PARISH PEREZ Start of Care Date: 09/19/22 Onset Date: (2007 WAS ASSESSED INITIALLY AND SAW A RETINAL SPECIALIST) Plan of Care Certification Date: 09/19/22 Next Certification Due Date: 11/18/22 Patient Identified by Name and Date of : Yes REHABILITATION AND SPORTS THERAPY OCCUPATIONAL THERAPY LOW VISION EVALUATION PLAN OF CARE: Assessment: Sona Lynn presents with the chief complaint of low vision for completing required IADLS AND FUNCTIONAL COMMUNICATION. She presents with impairments of VISUAL ACUITY, LOSS OF CENTRAL CHRISTOPHER AND DIFFICULTY WITH GLARE AND REDUCED CONTRAST. She may benefit from skilled occupational therapy services to improve SKILL LEVEL FOR FUNCTIONAL COMMUNICATION, IADLS AND SAFETY WITH SAME. Sona Lynn appears to be a good candidate [...] Planned: 6 Planned Treatment Interventions: Therapeutic exercise (63319);Self-group home management (12408);Patient/Family/Caregiver Education;Functional training;Community / Work Reintegration PLAN FOR NEXT VISIT: FOLLOW UP ON SELF PERFORMANCE ASSESSMENT FOR ADLS/IADLS AND ADDRESS SAME Patient demonstrates good understanding of plan of care and treatment. The above goals and plan of care were discussed and agreed upon by patient/family. SUBJECTIVE: Sona Lynn is a 52 year old female [...] Treatment: (was seen by low vision referring couples therapist, Dr. Fox recently. 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 She will be moving in w/ her boyfriend in near future (currently selling he home).) Assistance Available: (family, and friends) Home Type: (mobile home/one level. Did not assess steps to enter home.) Equipment Owned: (has a video magnifier issued by [employer] when working, portable video magnifier but lost cord/not id. premorbid assist with same; uses computer to pay bills onl (more content not included)...[facility]01-18-2023 History of Present illness Narrative* Parish Perez, OT/L - 09/19/2022 12:33 PM EST Episode Visit Count: 1 Therapist That Will Accept/Oversee The Plan Of Care: PARISH PEREZ Start of Care Date: 09/19/22 Onset Date: (2005 WAS ASSESSED INITIALLY AND SAW A RETINAL SPECIALIST) Plan of Care Certification Date: 09/19/22 Next Certification Due Date: 11/18/22 Patient Identified by Name and Date of : Yes REHABILITATION AND SPORTS THERAPY OCCUPATIONAL THERAPY LOW VISION EVALUATION PLAN OF CARE: Assessment: Sona Lynn presents with the chief complaint of low vision for completing required IADLS AND FUNCTIONAL COMMUNICATION. She presents with impairments of VISUAL ACUITY, LOSS OF CENTRAL CHRISTOPHER AND DIFFICULTY WITH GLARE AND REDUCED CONTRAST. She may benefit from skilled occupational therapy services to improve SKILL LEVEL FOR FUNCTIONAL COMMUNICATION, IADLS AND SAFETY WITH SAME. Sona Lynn appears to be a good candidate [...] Planned: 6 Planned Treatment Interventions: Therapeutic exercise (82003);Self-group home management (66036);Patient/Family/Caregiver Education;Functional training;Community / Work Reintegration PLAN FOR NEXT VISIT: FOLLOW UP ON SELF PERFORMANCE ASSESSMENT FOR ADLS/IADLS AND ADDRESS SAME Patient demonstrates good understanding of plan of care and treatment. The above goals and plan of care were discussed and agreed upon by patient/family. SUBJECTIVE: Sona Lynn is a 52 year old female [...] Treatment: (was seen by low vision referring couples therapist, Dr. Fox recently. 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 She will be moving in w/ her boyfriend in near future (currently selling he home).) Assistance Available: (family, and friends) Home Type: (mobile home/one level. Did not assess steps to enter home.) Equipment Owned: (has a video magnifier issued by [employer] when working, portable video magnifier but lost cord/not id. premorbid assist with same; uses computer to pay bills online, currently seeking out set up with [employer] martinez on IPH[employer], did see low vision couples therapist for LV equi) Transportation: (relies on alternative [...] Independent FUNCTIONAL VISUAL HISTORY: In the past Sona Lynn read for enjoyment moderately and work [...] REVEALS: Recalling report from referring low vision couples therapist's report: RIGHT EYE: 20/250 DISTANCE AND NEAR 6.3M LEFT EYE: CF @2', and near 1.6M Both Near: 1.6M. Patient is waiting for LEFT eye cataract extraction and currently is not able to wear corrective glasses. Patient id. Losing her prescription sunglasses and only has wrap around dark saunders filters. Pt. Is applying for financial resources for recommended optical aids/devices from her local [employer] in [facility] but needs prices from two providers and was provided contact information [facility] to assist with devices that referring low vision couples therapist (Dr. Fox) provided to her at time of her assessment. PSYCHOSOCIAL ASSESSMENT: Alert & Oriented X 4. Affect: appropriate, reasonably positive mood , and hyper verbal/tangential. Memory: no gross deficits observed. Concentration: WFL. Language: verbal and reading w/ appropriate use of adaptive equipment. Fund of Knowledge: High Patient Reports her: Motivation is High. Activity level is High. Sac for ADL is: Average. Life satisfaction is: [...] Education/Teach Back: States/Identifies;Return Demonstration TREATMENT: Evaluation Evaluation Self-Snf Management: 1: GROOMING: she was able to [...] future. 3: TO REDUCE GLARE: issued LIGHT JULIAN FIT OVER FILTERS to wear as needed [...] needed. 6: COMMUNITY SUPPORT/RESOURCES: provided her with [facility] resources for support ([employer] AND [employer]) and she is already set up [...] 30 Total Treatment Time Minutes (timed/untimed): 75 Parish Perez OT/L documented in this encounterC[facility]01-18-[facility]23 Miscellaneous Notes* Telephone Encounter - Barbie Alicea Pss - 09/19/2022 9:50 AM EST Per Ilsa at Occupational Therapy she does not help with white tsai/mobile training. She states shesent you a message. She states she will call patient and explain this to her and see if she still wants to come in for her appointment today. documented in this encounterCleveland Clinic [facility]or [facility]12-15-2022 History of Present illness Narrative* Wolf Fox, OD - 08/16/2022 1:45 PM EST Blindness [...] face time was 75 minutes. Signature: Wolf Fox OD Date: 08/16/2022 Time: 1:45 PM Dilation not repeated today, recently performed by referring doctor. Continue care as directed by referring doctor. Return as needed LV exam documented in this encounterCleveland Clinic Ment[facility] Hospital12-13-2022 Miscellaneous Notes* Telephone Encounter - Starla Mckeon LPN - 08/14/2022 9:23 AM EST Spoke with pt and information listed below given. Pt verbalizes understanding. Starla Mckeon LPN * Telephone Encounter - Luiza Anna APRN.DEBORAH - 08/13/2022 1:17 PM EST Please let patient know I have sent in a prescription for nasonex/mometasone nasal spray. Hopefullythis will be more affordable for her. Thank you Luiza Anna APRN.NREMT * Telephone Encounter - Starla Mckeon LPN - 08/13/2022 9:36 AM EST Spoke with pt and she states she was on Flonase and they thought she may of become immured to it and that was why they suggested Nasacort but this is to expensive. Wondering if there is something else she could try. Please advise pt. Starla Mckeon LPN * Telephone Encounter - Luiza Anna APRN.CNP - 08/10/2022 3:38 PM EST Flonase was ordered a few months ago. Was this too pricey? If not I can reorder this. Thank you Luiza Anna APRN.DEBORAH * Telephone Encounter - Lea Roberts Pss [...] advise. Lea Roberts Pss documented in this encounterCleveland Clinic Ment[facility]11-22-2022 History of Present illness Narrative* Jonathon [...] by others. I have seen and examined Sona Lynn. I have discussed the case and the management of this patient's care with the Resident/Fellow, if applicable. I also have reviewed and agree with the assessment and plan as stated above and agree withall of its relevant components. Jonathon Eugene MD documented in this encounterCleveland Clinic Ment[facility] Hospital11-22-2022 Miscellaneous Notes* Telephone Encounter - Aleksandra Min LPN - 07/24/2022 11:21 AM EST Patient notified. Verbalized understanding. * Telephone Encounter - Pennie Davis MD - 07/23/2022 6:53 PM EST I sent this to Pennie Hinson MD * Telephone Encounter - Melly Adams - 07/23/2022 12:10 PM EST Sona Lynn is calling Pennie Davis MD today she stated she saw [...] calling: self Call patient at: at home [phone] (home) [phone] (cell) Was an appointment scheduled: No Closing statement: Results or non-symptom based questions: Thank you for [facility], your call will be returned within the next business day. Melly Prado Pss documented in this encounterCleveland Clinic [facility] Hospital11-21-2022 Miscellaneous Notes* Telephone Encounter - Celeste Brendan JOLIE - 07/23/2022 3:00 PM EST Patient [...] LPN * Telephone Encounter - Melly Prado [facility] - 07/23/2022 12:02 PM EST [...] No need to notify patient. Melly Prado [facility] documented in this encounterCleveland Clinic Ment[facility] Hospital11-21-2022 Miscellaneous Notes* Telephone Encounter - Vanessa Cooley RN - 07/23/2022 12:41 PM EST Patient last seen for annual exam on 12/04/21. Vanessa Cooley RN * Telephone Encounter - Melly Prado [facility] - 07/23/2022 12:16 PM [...] patient. Melly Prado Pss documented in this encounterCleveland Clinic [facility]11-03-2022 Miscellaneous Notes* Telephone Encounter - Dara Valdez RN - 07/05/2022 8:41 AM EDT Called patient and notified that provider sent medication to [facility]. Patient voiced understanding. Dara Valdez RN * Telephone Encounter - Clint Brennan RN - 07/04/2022 4:11 PM EDT Patient asking pcp to send Rx to [facility]. See message below. * Telephone Encounter [...] advise, Dara Valdez RN documented in this encounterCleveland Clinic [facility]11-01-2022 Instructions* Patient Instructions* Jonathon Eugene MD - 07/03/2022 1:14 PM EDT -prednisolone (white or pink cap) four times a day x 1 week, then three times a day for 1 week, then twice a day for 1 week, then once a day for 1 week, then stop -vigamox (mora cap) four times a day for 1 week, then stop documented in this encounterCleveland Clinic [facility]11-01-2022 History of Present illness Narrative* Jonathon [...] by others. I have seen and examined Sona Lynn. I have discussed the case and the management of this patient's care with the Resident/Fellow, if applicable. I also have reviewed and agree with the assessment and plan as stated above and agree withall of its relevant components. Jonathon Eugene MD documented in this encounterCleveland Clinic [facility]10-28-2022 History of Present illness Narrative* Valentineabeba Torres, OD - 06/29/2022 12:01 PM EDT 1. Photopsia Intact retina upon dilated fundus examination Patient vision HM today (compared to 20/100 10/25/22) Right eye pupil non-reactive but dilated well [...] 29, 2022 12:01 PM documented in this encounterCleveland Clinic Ment[facility] Hospital10-28-2022 Miscellaneous Notes* Telephone Encounter - Tori Morales Ma - 06/29/2022 10:14 AM EDT Patient notified. * Telephone Encounter - Luiza Anna APRN.CNP - 06/28/2022 4:47 PM EDT I reviewed the [facility] and from their description, cough [...] she really should be re-evaluated. Thank you Luiza Anna APRN.CNP * Telephone Encounter - Sita Mauricio LPN - 06/28/2022 9:24 AM EDT Patient recently had cataract surgery completed and developed an upper respiratory infection with cough. She has coughed so hard that she has ruptured blood vessels in her eye that she had the surgery on and having trouble seeing out of that eye. She was seen in [facility] and he felt it was viral. Dr. Eugene is asking that she be given something to treat the cough and patient is requesting an antibiotic such as Z-pk or levaquin. Please review and advise. documented in this encounterCleveland Clinic Ment[facility] Hospital10-28-2022 Miscellaneous Notes* Telephone Encounter - Susan Rivero RN - 06/29/2022 8:59 AM EDT Patient has been scheduled for today 06/29/2022 at the [place] office with Dr. Torres. Ssuan Rivero RN June 29, 2022 8:59 AM * Telephone Encounter - Susan Rivero RN - 06/29/2022 7:35 AM EDT Received message via Secure Chat from Dr. Eugene that due to patient living in [place] that she could see Dr. Torres for a dilated exam as well. If patient wants seen by Dr. Eugene he is at [facility]. Susan Rivero RN June 29, 2022 7:36 AM * Telephone Encounter - Susan Rivero RN - 06/28/2022 6:07 PM EDT Discussed patient with Dr. Eugene. He advised for patient to be seen on 06/29/[address] Ramos. Rout[facility] staff to schedule. Susan Rivero RN June 28, 2022 6:08 PM * Telephone Encounter - Susan Rivero RN - 06/28/2022 4:05 PM EDT Patient with Superior bleb right eye and 2 prolene sutures into iridotomy right eye. Using Prednisolone, Ketorolac and Moxifloxacin as per post-op instructions Has script for Polysporin ophthalmic that was prescribed for left eye 02/28/2022. Will wait for Dr. Eugene to advise. Susan Rivero RN June 28, 2022 4:06 PM [...] can do to help. documented in this encounterCleveland Clinic Ment[facility] Hospital10-25-2022 Instructions* Patient Instructions* Jonathon Eugene MD - 06/26/2022 1:40 PM EDT -prednisolone every two hours right eye -vigamox four times a day right eye -geldrops left eye -ointment at bedtime left eye documented in this encounterCleveland Clinic Ment[facility] Hospital10-25-2022 History of Present illness Narrative* Jonathon [...] by others. I have seen and examined Soan Lynn. I have discussed the case and the management of this patient's care with the Resident/Fellow, if applicable. I also have reviewed and agree with the assessment and plan as stated above and agree withall of its relevant components. Jonathon Eugene MD documented in this encounterCleveland Clinic Ment[facility] Hospital10-24-2022 History of Past illness Narrative* Problem Noted Date Resolved Date Combined forms of age-related cataract of right eye 06/25/2022 06/25/2022 Photopsia 06/25/2022 06/25/2022 documented as of this encounter (statuses as of 06/25/2022) [facility] Narrative* Problem Noted Date Resolved Date Combined forms of age-related cataract of right eye 06/25/2022 06/25/2022 Photopsia 06/25/2022 06/25/2022 documented as of this encounter (statuses as of 06/26/2022) [facility] Narrative* Problem Noted Date Resolved Date Combined forms of age-related cataract of right eye 06/25/2022 06/25/2022 Photopsia 06/25/2022 06/25/2022 documented as of this encounter (statuses as of 06/26/2022) [facility] Narrative* Problem Noted Date Resolved Date Combined forms of age-related cataract of right eye 06/25/2022 06/25/2022 Photopsia 06/25/2022 06/25/2022 documented as of this encounter (statuses as of 06/29/2022) [facility] Narrative* Problem Noted Date Resolved Date Combined forms of age-related cataract of right eye 06/25/2022 06/25/2022 Photopsia 06/25/2022 06/25/2022 documented as of this encounter (statuses as of 06/29/2022) [facility] Narrative* Problem Noted Date Resolved Date Combined forms of age-related cataract of right eye 06/25/2022 06/25/2022 Photopsia 06/25/2022 06/25/2022 documented as of this encounter (statuses as of 06/29/2022) [facility] Narrative* Problem Noted Date Resolved Date Combined forms of age-related cataract of right eye 06/25/2022 06/25/2022 Photopsia 06/25/2022 06/25/2022 documented as of this encounter (statuses as of 07/03/2022) [facility] Narrative* Problem Noted Date Resolved Date Combined forms of age-related cataract of right eye 06/25/2022 06/25/2022 Photopsia 06/25/2022 06/25/2022 documented as of this encounter (statuses as of 07/05/2022) [facility] Narrative* Problem Noted Date Resolved Date Combined forms of age-related cataract of right eye 06/25/2022 06/25/2022 Photopsia 06/25/2022 06/25/2022 documented as of this encounter (statuses as of 07/23/2022) [facility] Narrative* Problem Noted Date Resolved Date Combined forms of age-related cataract of right eye 06/25/2022 06/25/2022 Photopsia 06/25/2022 06/25/2022 documented as of this encounter (statuses as of 07/24/2022) [facility] Narrative* Problem Noted Date Resolved Date Combined forms of age-related cataract of right eye 06/25/2022 06/25/2022 Photopsia 06/25/2022 06/25/2022 documented as of this encounter (statuses as of 07/24/2022) [facility] Narrative* Problem Noted Date Resolved Date Combined forms of age-related cataract of right eye 06/25/2022 06/25/2022 Photopsia 06/25/2022 06/25/2022 documented as of this encounter (statuses as of 07/25/2022) [facility] Narrative* Problem Noted Date Resolved Date Combined forms of age-related cataract of right eye 06/25/2022 06/25/2022 Photopsia 06/25/2022 06/25/2022 documented as of this encounter (statuses as of 08/14/2022) [facility]arr[facility]* Problem Noted Date Resolved Date Combined forms of age-related cataract of right eye 06/25/2022 06/25/2022 Photopsia 06/25/2022 06/25/2022 documented as of this encounter (statuses as of 08/16/2022) [facility]* Problem Noted Date Resolved Date Combined forms of age-related cataract of right eye 06/25/2022 06/25/2022 Photopsia 06/25/2022 06/25/2022 documented as of this encounter (statuses as of 09/20/2022) [facility]* Problem Noted Date Resolved Date Combined forms of age-related cataract of right eye 06/25/2022 06/25/2022 Photopsia 06/25/2022 06/25/2022 documented as of this encounter (statuses as of 09/26/2022) [address]24-2022 History of Past illness Narrative* Problem Noted Date Resolved Date Combined forms of age-related cataract of right eye 06/25/2022 06/25/2022 Photopsia 06/25/2022 06/25/2022 documented as of this encounter (statuses as of 09/27/2022) [facility]* Problem Noted Date Resolved Date Combined forms of age-related cataract of right eye 06/25/2022 06/25/2022 Photopsia 06/25/2022 06/25/2022 documented as of this encounter (statuses as of 09/28/2022) [facility]* Problem Noted Date Resolved Date Combined 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 06/25/2022 06/25/2022 Photopsia 06/25/2022 06/25/2022 documented as of this encounter (statuses as of 10/01/2022) [facility]* Problem Noted Date Resolved Date Combined 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 06/25/2022 06/25/2022 Photopsia 06/25/2022 06/25/2022 documented as of this encounter (statuses as of 10/02/2022) [facility]* Problem Noted Date Resolved Date Combined forms of age-related cataract of right eye 06/25/2022 06/25/2022 Photopsia 06/25/2022 06/25/2022 documented as of this encounter (statuses as of 10/02/2022) [facility]* Problem Noted Date Resolved Date Combined forms of age-related cataract of right eye 06/25/2022 06/25/2022 Photopsia 06/25/2022 06/25/2022 documented as of this encounter (statuses as of 10/04/2022) [facility]* Problem Noted Date Resolved Date Combined forms of 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 06/25/2022 06/25/2022 Photopsia 06/25/2022 06/25/2022 documented as of this encounter (statuses as of 10/09/2022) [facility]* Problem Noted Date Resolved Date Combined forms of age-related cataract of right eye 06/25/2022 06/25/2022 Photopsia 06/25/2022 06/25/2022 documented as of this encounter (statuses as of 10/11/2022) [facility]* Problem Noted Date Resolved Date Combined forms of age-related cataract of right eye 06/25/2022 06/25/2022 Photopsia 06/25/2022 06/25/2022 documented as of this encounter (statuses as of 10/17/2022) [facility]* Problem Noted Date Resolved Date Combined forms of age-related cataract of right eye 06/25/2022 06/25/2022 Photopsia 06/25/2022 06/25/2022 documented as of this encounter (statuses as of 10/17/2022) [facility]* Problem Noted Date Resolved Date Combined forms of age-related cataract of right eye 06/25/2022 06/25/2022 Photopsia 06/25/2022 06/25/2022 documented as of this encounter (statuses as of 10/25/2022) [facility]* Problem Noted Date Resolved Date Combined forms of age-related cataract of right eye 06/25/2022 06/25/2022 Photopsia 06/25/2022 06/25/2022 documented as of this encounter (statuses as of 10/26/2022) [facility]* Problem Noted Date Resolved Date Combined forms of age-related cataract of right eye 06/25/2022 06/25/2022 Photopsia 06/25/2022 06/25/2022 documented as of this encounter (statuses as of 10/29/2022) [facility]* Problem Noted Date Resolved Date Combined forms of age-related cataract of right eye 06/25/2022 06/25/2022 Photopsia 06/25/2022 06/25/2022 documented as of this encounter (statuses as of 10/31/2022) [facility]* Problem Noted Date Resolved Date Combined forms of age-related cataract of right eye 06/25/2022 06/25/2022 Photopsia 06/25/2022 06/25/2022 documented as of this encounter (statuses as of 11/02/2022) [facility]arrative* Problem Noted Date Resolved Date Combined forms of age-related cataract of right eye 06/25/2022 06/25/2022 Photopsia 06/25/2022 06/25/2022 documented as of this encounter (statuses as of 11/05/2022) [facility]* Problem Noted Date Resolved Date Combined forms of age-related cataract of right eye 06/25/2022 06/25/2022 Photopsia 06/25/2022 06/25/2022 documented as of this encounter (statuses as of 11/13/2022) [facility] History of Past illness Narrative* Problem Noted Date Diagnosed Date Resolved Date Combined forms of age-relate d cataract of right eye 06/25/2022 06/25/2022 Photopsia 06/25/2022 06/25/2022 Combined forms of age-relate d cataract, left eye 04/03/2022 12/29/2022 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, right, indeterminate stage 10/26/2021 0 12/29/2022 documented as of this encounter (statuses as of 07/06/2023) [facility] History of Past illness Narrative* Problem Noted Date Diagnosed Date Resolved Date Combined forms of age-relate d cataract of right eye 06/25/2022 06/25/2022 Photopsia 06/25/2022 06/25/2022 Combined forms of age-relate d cataract, left eye 04/03/2022 12/29/2022 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, right, indeterminate stage 10/26/2021 0 12/29/2022 documented as of this encounter (statuses as of 07/06/2023) [facility] History of Past illness Narrative* Problem Noted Date Diagnosed Date Resolved Date Combined forms of age-relate d cataract of right eye 06/25/2022 06/25/2022 Photopsia 06/25/2022 06/25/2022 Combined forms of age-relate d cataract, left eye 04/03/2022 12/29/2022 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, right, indeterminate stage 10/26/2021 0 12/29/2022 documented as of this encounter (statuses as of 07/06/2023) [facility] History of Past illness Narrative* Problem Noted Date Diagnosed Date Resolved Date Combined forms of age-relate d cataract of right eye 06/25/2022 06/25/2022 Photopsia 06/25/2022 06/25/2022 Combined forms of age-relate d cataract, left eye 04/03/2022 12/29/2022 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 Author Type: Registered Nurse Type: Nursing Progress Note Filed: 06/25/2022 9:59 AM Note Text: Spoke with Mallika VACUUM WORKER that patient has questions for Dr. Eugene prior to procedure.[id number] Hospital Discharge instructions* Discharge Instr - Other [...] 38.3 C Trouble breathing Contact Jonathon Eugene [phone] and leave voicemail -emergency numbers: [phone] or ext [phone] and ask for the eye doctor telecommunications equipment installer. documented in this [facility]10-24-2022 History and physical note * Jonathon [...] attached. SIGNATURE: Jonathon Eugene MD PATIENT NAME: Sona Lynn DATE: June 25, 2022 TIME: 10:02 AM documented in this [facility]10-24-2022 Nurse Note* Sona Cardoso RN - 06/25/2022 9:58 AM EDT Spoke with Mallika VACUUM WORKER that patient has questions for Dr. Eugene prior to procedure. documented in this [facility]10-24-2022 Surgical operation note* Operative Report - Jonathon Eugene MD - 06/25/2022 9:58 AM EDT OPERATIVE/PROCEDURE REPORT OPHTHAMOLOGY LOG ID: [id number] SURGERY/PROCEDURE DATE: 06/25/2022 INCISION/PROCEDURE START TIME: 10:13 AM INCISION CLOSE/PROCEDURE END TIME: 11:27 AM SURGEON(S)/PROCEDURALIST(S) AND TELEPHONE TECHNICIAN(S): Surgeon(s) and Role: * Jonathon Eugene MD [...] Implant Name Type Inv. Item Serial No. Bank Officer Lot No. LRB No. Used Action Model No. LENS ACRYSOF ULTRASERT +14.5 DIOPTER ACRYLIC IOL 1 PIECE FOLDABLE UV BLUE - [id number] Intraocular Lens LENS ACRYSOF ULTRASERT +14.5 DIOPTER ACRYLIC IOL 1 PIECE FOLDABLE UV BLUE [id number] [employer] Right 1 Implanted [id number] Ocular Co-Morbidities: Yes Intra-operative Complications None I/primary surgeon/proceduralist performed the entire procedure. SIGNATURE: Jonathon Eugene MD PATIENT NAME: Sona Lynn DATE: June 25, 2022 TIME: 11:31 AM PAGER/CONTACT #: [phone] documented in [facility] Miscellaneous Notes* Telephone Encounter - Susan Rivero RN - 06/22/2022 10:58 AM EDT Pended pre-operative drop prescriptions to Dr. Eugene for approval. Susan Rivero RN June 22, 2022 10:59 AM documented in this [facility]10-21-2022 Miscellaneous Notes* Telephone Encounter - Meche Salvador - 06/22/2022 9:24 AM EDT Patient's pharmacy has no record of receiving the pre surgical prescriptions. Her surgery is 06-25-22, so she needs to start the drops tomorrow. Please send drops to [facility]. NIC Javier documented in this [facility]10-19-2022 History of Present illness Narrative* Charlene Grossman MD - 06/20/2022 5:16 PM EDT Images from the original note were not included. Charlene Grossman MD Interventional Cardiology [address] [place] [address] Chief Complaint Patient presents with: CARD New [...] (RIGHT EYE) Right 10/26/2021 S BALLOON,[place]BLATION [id number] FAMILY HISTORY Problem Relation Age of Onset Heart Father Age 61 Heart Maternal Grandfather Cancer Paternal Grandmother Breast Cancer Maternal Aunt 55 ovarian cancer Heart Son OR Ovarian cancer Maternal Grandmother Glaucoma No Family [...] to correct any errors. documented in this encounterC[facility] Nurse Note* Alana Jiang MA - 06/20/2022 12:46 PM EDT Patient c/o bradycardia, palpitations, SOB, chest tenderness documented in this encounterC[facility]10-[facility]-2022 Miscellaneous Notes* Telephone Encounter - Mauricio Josef - 06/20/2022 9:32 AM EDT Attempted to contact patient to inform to arrive at [facility] [address] at 09:05 am for 06/25/22 surgery with Jonathon Eugene MD, to refrain from eating or drinking for 8 hours prior to arrival for surgery, and to begin the eyedrops in the right eye on 06/23/22. Left message on machine to callwith any questions or concerns. documented in this encounterC[facility] Miscellaneous Notes* Telephone Encounter - Celeste [...] LPN * Telephone Encounter - Myra Deal [facility] - 05/11/2022 10:15 AM EDT Patient has [...] to pharmacy. No need to notify patient. [facility] documented in this encounterC[facility] Miscellaneous Notes* Telephone Encounter - Anshul Oliver Ma - 05/11/2022 10:29 AM EDT NOMI: 12/25/2021 Last refill: 09/18/2021 QTY: 60 Refills: 2 * [facility] - 05/11/2022 10:19 AM EDT Patient is requesting medication, Gabapentin 100 mg take one daily at bedtime. She will need these for her upcoming eye procedure. This medication is not on the medication list. Please send to her local pharmacy [facility]. Any questions , please call patient [phone] documented in this encounterC[facility] History of Present illness Narrative* Viviana Powell Ma - 05/03/2022 4:34 PM EDT EMG/NCV order faxed to [facility] scheduling. Referral done in computer. * Massimo Roberts MD - 05/03/2022 1:30 PM EDT Massimo Roberts MD Department of Orthopaedics Orthopaedics [address] [place] [address] Dept: [phone] Dept May 03, 2022 CHIEF COMPLAINT: New [...] testing FOLLOW UP INSTRUCTIONS: As above Ms. Sona Lynn was advised as to contrast therapies and/or to take analgesics/anti-inflammatories as needed and all contraindications were reviewed. OBJECTIVE: Ms. Sona Lynn is a pleasant 52 year old [...] (RIGHT EYE) Right 10/26/2021 S BALLOON,[place] [id number] Family History: FAMILY HISTORY Problem Relation Age of Onset Heart Father Age 61 Heart Maternal Grandfather Cancer Paternal Grandmother Breast Cancer Maternal Aunt 55 ovarian cancer Heart Son OR Ovarian cancer Maternal Grandmother Glaucoma No Family [...] Psych (no depression, anxiety) REFERRING PHYSICIAN: Ms. Sona Lynn was referred to al for consultation by the following physician. This consultation note will be sent to the following physician by either mail or electronic medical record. Massimo Roberts [address] [facility] [address] Pennie Davis MD [address] [facility] [address] Massimo Roebrts MD documented in this encounterCleveland [facility]08-[facility]-2022 Miscellaneous Notes* Telephone Encounter - Zainab Leyva - 04/25/2022 10:42 AM EDT INTRAOCULAR LENS ORDER ATTN: [facility] PATIENTS NAME: Sona Lynn SURGERY DATE: 06/25/2022 EYE: OD SURGEON: Jonathon Eugene MD LENS: [employer] IQ HOUSEKEEPING CLEANER: Leonardo MODEL: [id number] POWER: + 14.5 ADDITIONAL NOTES: documented in this encounterCleveland [facility]08-[facility]-2022 History of Present illness Narrative* Jonathon [...] Distance CC 20/200 Glare Testing: Visual Function: Sona Lynn states that the decline in vision from the cataract impedes her abilities as listed in the HPI, as well as other activities of daily living. Sona Lynn has confirmed that she is no [...] surgery with lens implantation were discussed with Sona Lynn in detail. she appeared to understand [...] by others. I have seen and examined Sona Lynn. I have discussed the case and the management of this patient's care with the Resident/Fellow, if applicable. I also have reviewed and agree with the assessment and plan as stated above and agree withall of its relevant components. Jonathon Eugene MD documented in this encounterC[facility]08-02-2022 Instructions* Patient Instructions* Jonathon Eugene MD - 04/03/2022 12:34 PM EDT Images from the original note were not included. documented in this encounterC[facility]08-[facility]-2022 History of Present illness Narrative* Jonathon [...] Distance CC 20/200 Glare Testing: Visual Function: Sona Lynn states that the decline in vision from the cataract impedes her abilities as listed in the HPI, as well as other activities of daily living. Sona Lynn has confirmed that she is no [...] surgery with lens implantation were discussed with Sona Lynn in detail. she appeared to understand [...] by others. I have seen and examined Sona Lynn. I have discussed the case and the management of this patient's care with the Resident/Fellow, if applicable. I also have reviewed and agree with the assessment and plan as stated above and agree withall of its relevant components. Jonathon Eugene MD documented in this encounterC[facility]22 History of Present illness Narrative* Shani Ramos MD - 03/27/2022 6:14 PM EDT [...] (H52.7) Refractive error Comment: Myopia, patient has couples therapist Plan: Wait on new specs for now RTC 3 months VaTa or sooner if needed post-op I have confirmed and edited as necessary the relevant ophthalmic history, ROS, and the neuro exam findings as obtained by others. I have seen and examined this patient. I have discussed the case and the management of this patient's care with the Resident/Fellow/Senior Graphic Designer, if applicable. I also have reviewed and agree with the assessment and plan as stated above and agree with all of its relevant components. Shani Ramos MD April 03, 2022 5:22 PM documented in this encounterC[facility]07-13-2022 History of Present illness Narrative* Jonathon [...] by others. I have seen and examined Sona Lynn. I have discussed the case and the management of this patient's care with the Resident/Fellow, if applicable. I also have reviewed and agree with the assessment and plan as stated above and agree withall of its relevant components. Jonathon Eugene MD documented in this encounterC[facility]07-01-2022 Miscellaneous Notes* Telephone Encounter - Susan Rivero RN - 03/02/2022 10:41 AM EDT [...] and states that everything is going well. Susan Rivero RN March 02, 2022 10:47 AM * Telephone Encounter - Kan Nisreen - 03/02/2022 10:29 AM EDT The patient reports that her bloodwork came back negative and was asking if she needed to do anything further as she received a recent diagnosis of a corneal ulcer from Dr. Eugene. Please advise. documented in this encounterC[facility]06-28-2022 History of Present illness Narrative* Jonathon [...] by others. I have seen and examined Sona Lynn. I have discussed the case and the management of this patient's care with the Resident/Fellow, if applicable. I also have reviewed and agree with the assessment and plan as stated above and agree withall of its relevant components. Jonathon Eugene MD documented in this encounterC[facility]06-11-2022 Miscellaneous Notes* Telephone Encounter - Aleksandra Min LPN - 02/10/2022 11:58 AM EDT Patient notified on mychart. * Telephone Encounter - Alise Dejesus APRN.NREMT - 02/10/2022 11:20 AM EDT No growth for urine culture. If symptoms persist then follow up with PCP Please notify thank you documented in this encounterC[facility]06-10-2022 Miscellaneous Notes* Telephone Encounter - Mary Goodwin Pss - 02/09/2022 10:05 AM EDT Pharmacy [facility] Patient has been identified by name [...] advise. Mary Goodwin Pss documented in this encounterC[facility]06-09-2022 Miscellaneous Notes* Telephone Encounter - Susan Rivero RN - 02/08/2022 11:30 AM EDT Received call from patient. Reviewed the options available for Upneeq. Patient states due to being on disability she is unable to pay out of pocket for the medication. Asks that I inform Dr. Eugene that she wishes to discuss lid surgery further. Thanked us for looking into the medication for her. Susan Rivero RN February 08, 2022 11:32 AM * Telephone Encounter - Susan Rivero RN - 02/08/2022 9:47 AM EDT Left message for patient to call office to obtain information below. Susan Rivero RN February 08, 2022 9:48 AM * Telephone Encounter - Susan Rivero RN - 02/08/2022 8:55 AM EDT Obtained information concerning Upneeq. It is not covered by most insurance companies. [employer] offers pricing of over $200.00 for all Pharmacies. [facility] The trimming machine operator of [employer] recommends using an on-line Pharmacy, [facility]. They DO NOT submit to insurance. It is an out of pocket cost for the patient of $150.00 for a box of 30 vials which is aone month supply. If an alternative is not available, I will reach out to patient with the above information to see if she wants to proceed with obtaining the drops. Susan Rivero RN February 08, 2022 9:05 AM * Telephone Encounter - Emy Nix Pss - 02/07/2022 3:35 PM EDT Patient called stating that the Upneeq is not covered by her insurance. Wants to know if there is an alternative that she can use? documented in this encounterC[facility]05-13-2022 Miscellaneous Notes* Telephone Encounter - Mary Tamez RN - 01/12/2022 10:46 AM EDT Patient last seen for annual exam on 12/04/21. Needs a new RX for Prempro. Out of refills. RX pending. Pending Prescriptions Disp Refills CONJ ESTROGEN-MEDROXYPROGESTERONE 0.45 MG-1.5 MG TABLET 84 tablet 2 Sig: Take 1 tablet by mouth once daily. WALTER: No Mary Tamez RN documented in this encounterC[facility]04[facility]25-[facility]22 History of Present illness Narrative* Pennie Davis MD - 12/25/2021 1:17 PM EDT Reason for Visit Patient presents with: Established Patient: follow up- needs MRA per and discuss meds,H/A's Sona Lynn is a 51 year old female [...] (RIGHT EYE) Right 10/26/2021 S [place] [id number] FAMILY HISTORY Problem Relation Age of Onset Heart Father Age 61 Heart Maternal Grandfather Cancer Paternal Grandmother Breast Cancer Maternal Aunt 55 ovarian cancer Heart Son OR Ovarian cancer Maternal Grandmother Glaucoma No Family [...] ICD10: G44.89 - MRI BRAIN WO/W IVCON Pennie Davis MD documented in this encounterDominique Ville [address]-19-2022 History of Present illness Narrative* Shani Ramos MD - 12/19/2021 2:16 PM EDT [...] fit Plan: Monitor without topical therapy Continue julian glasses for glare OK to use diclofenac 2 x daily as needed for eye ache OK to use refresh in both eyes as often as needed (H40.7534) Primary open angle glaucoma (POAG) of both [...] (H52.7) Refractive error Comment: Myopia, patient has couples therapist; happy with new glasses Plan: f/u as [...] management of this patient's care with the Resident/Fellow/Senior Graphic Designer, if applicable. I also have reviewed and agree with the assessment and plan as stated above and agree with all of its relevant components. Shani Ramos MD December 19, 2021 2:17 PM documented in this encounterC[facility]04-11-2022 Miscellaneous Notes* Telephone Encounter - Dara Valdez RN - 12/11/2021 12:14 PM EDT Patient call and is notified of this and set up appointment with provider on 12/18/2021. Patient encouraged that if symptoms get worse to go to ER. Patient verbalized understanding. Dara Valdez RN * Telephone Encounter - Pennie Davis MD - 12/07/2021 10:14 PM EDT Please set patient with Luiza anna or me to work this out for the patient * Telephone Encounter - Luiza Anna APRN.CNP - 12/07/2021 4:00 PM EDT Patient will need to be evaluated for this. Thank you Luiza Anna APRN.CNP * Telephone Encounter - Tori Morales Ma - 12/07/2021 1:47 PM EDT Spoke with patient, Dr chavez is asking PCP to order MRA, patient has DX of PXE, slurred speech, headaches, fall risk and recent hospitalization of vertigo. He is asking this to be done before patient's 12/25 appointment with PCP. * Telephone Encounter - Luiza Anna APRN.CNP - 12/07/2021 12:31 PM EDT Is ENT ordering this and she is asking our opinion, or was ENT telling her to get order from PCP. Thank you Luiza Anna APRN.CNP * Telephone Encounter - Mary Lofton - 12/07/2021 9:06 AM EDT Pt called stating that Dr. Chavez is suggesting an MRA brain be order due to vertigo. documented in this encounterCleveland Clinic [facility]04-04-2022 History of Present illness Narrative* Destiney Pendleton APRN.CNP - 12/04/2021 1:06 PM EDT Sona is a 51 year old who presents [...] L3 SAB0 IAB0 Ectopic0 Multiple0 Live Births0 [employer] R[employer] History LMP: Ablation Age at Menarche: Age at First : Age at Menopause: [employer] History Comments: Sexual Activity: Not Asked; Male [...] (RIGHT EYE) Right 10/26/2021 S [place]ALLOON,[place] ABL[place] [id number] FAMILY HISTORY Problem Relation Age of Onset Heart Father Age 61 Heart Maternal Grandfather Cancer Paternal Grandmother Breast Cancer Maternal Aunt 55 ovarian cancer Heart Son OR Ovarian cancer Maternal Grandmother Glaucoma No Family [...] external genitalia normal, normal Bartholin's glands, urethra, [place]'s glands, no vulvar lesions, no cervical lesions, [...] year or sooner as needed Destiney Pendleton APRN.CNP documented in this encounterC[facility]03-29-2022 History of Present illness Narrative* Shani Ramos MD - 11/28/2021 3:15 PM EDT [...] (H52.7) Refractive error Comment: Myopia, patient has couples therapist Plan: f/u as planned RTC f/u as planned, refraction * Shani Ramos MD - 11/28/2021 2:50 PM EDT [...] management of this patient's care with the Resident/Fellow/Senior Graphic Designer, if applicable. I also have reviewed and agree with the assessment and plan as stated above and agree with all of its relevant components. Shani Ramos MD December 03, 2021 3:53 PM documented in this encounterCleveland [facility] HospitalEval[facility]* Diagnosis Follow-up exam- Primary Unspecified follow-up examination documented in this encounter [facility]* Diagnosis Encounter for gynecological examination (general) (routine) without abnormal findings- Primary Encounter for screening mammogram for breast cancer documented [facility] encounter [facility]* Diagnosis Follow-up exam- Primary Unspecified follow-up examination Photopsia Other visual distortions and entoptic phenomena 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 documented [facility] encounter [facility]* Diagnosis 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 Vertigo Dizziness and giddiness Memory deficits Memory loss New daily persistent headache Chronic mixed headache syndrome Other headache syndromes [facility]* Diagnosis 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 injury Post-traumatic headache, unspecified [facility]* Diagnosis Photopsia- Primary Other visual distortions and entoptic phenomena Primary open angle glaucoma (POAG) of both eyes, indeterminate stage Combined form of age-related cataract, 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 Marginal corneal ulcer [facility]* Diagnosis Photopsia- Primary Other visual distortions and entoptic phenomena Primary open angle glaucoma (POAG) of both eyes, indeterminate stage Combined form of age-related cataract, 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 Marginal corneal ulcer 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 [facility]* Diagnosis Medication management Encounter for long-term (current) use of other medications [facility]* Diagnosis Photopsia- Primary Other visual distortions and entoptic phenomena Combined forms of age-related cataract of both eyes Other and combined forms of senile cataract Primary open angle glaucoma (POAG) of both eyes, indeterminate stage Combined form of age-related cataract, both eyes documented [facility] encounter [facility]* Diagnosis Primary open angle glaucoma (POAG) of both eyes, indeterminate stage- Primary Corneal dellen of left eye Nuclear senile cataract of right eye [facility]* Diagnosis Combined forms of age-related cataract of right eye- Primary Other and combined forms of senile cataract Combined forms of age-related cataract of left eye Other and combined forms of senile cataract [facility]* Diagnosis Pain in both hands- Primary Trigger middle finger of left hand Trigger finger (acquired) Trigger ring finger of right hand Trigger finger (acquired) Combined forms of age-related cataract of right eye Other and combined forms of senile cataract Photopsia Other visual distortions and entoptic phenomena [facility]* Diagnosis 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 Obesity, Class I, BMI 30-34.9 Obesity, unspecified Combined forms of age-related cataract of right eye Other and combined forms of senile cataract Photopsia Other visual distortions and entoptic phenomena [facility]* Diagnosis Combined forms of age-related cataract of right eye Other and combined forms of senile cataract Photopsia Other visual distortions and entoptic phenomena [facility]* Diagnosis Pseudophakia- Primary Lens replaced by other means documented [facility] encounter [facility]* Diagnosis Acute cough- Primary documented in this [facility]* Diagnosis Photopsia- Primary Other visual distortions and entoptic phenomena Pseudophakia, right eye Lens replaced by other means Combined forms of age-related cataract, left eye Primary open angle glaucoma (POAG) of both eyes, indeterminate stage 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 [facility] Diagnosis Pseudophakia, right eye- Primary Lens replaced by other means [facility] Diagnosis Pseudophakia, right eye- Primary Lens replaced by other means [facility] Diagnosis Functional dyspepsia Dyspepsia and other specified disorders of function of stomach Nausea Nausea alone [facility] Diagnosis 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 injury Post-traumatic headache, unspecified [facility] Diagnosis Blindness right eye category 3, blindness left eye category 4- Primary Pseudophakia, right eye Lens replaced by other means Combined forms of age-related cataract, left eye Hyperopia of right eye [facility] Diagnosis Blindness right eye category 3, blindness left eye category 4- Primary Difficulty with household tasks Impaired mobility and personal care Personal care impairment Other specified conditions influencing health status Complaints of difficulty with reading Developmental reading disorder, unspecified [facility] Diagnosis Annual physical exam- Primary Routine general medical examination at a health care facility [facility] Diagnosis Abnormal mammogram- Primary Abnormal mammogram, [...] eye, severe stage [facility] Diagnosis Blindness right eye category 3, [...] eye, severe stage [facility]* Diagnosis Follow-up exam- Primary Unspecified follow-up examination [facility] Diagnosis Trigger ring finger of right hand- Primary Trigger finger (acquired) Trigger middle finger of left hand Trigger finger (acquired) [facility]* Diagnosis Follow-up exam- Primary Unspecified follow-up examination [facility] Diagnosis Follow-up exam- Primary Unspecified follow-up examination Vitreous prolapse of left eye Vitreous prolapse [facility] noteNo assessment information availableWBrecksville [facility] Work Phone: [facility] note* Diagnosis Secondary glaucoma, indeterminate stage, 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 Pseudophakia of both eyes Lens replaced by other means [facility] Diagnosis Gastroesophageal reflux disease, unspecified whether esophagitis present- Primary Change in bowel habits Other symptoms involving digestive system [facility] Diagnosis Legally blind- Primary Legal blindness, as defined in [place] [facility] Diagnosis Numbness and tingling in right hand- Primary Disturbance of skin sensation [facility] Diagnosis Trigger finger, unspecified finger, unspecified laterality [facility] Diagnosis Abnormal mammogram Abnormal mammogram, unspecified [facility]* Diagnosis Pain in both hands [facility]* Diagnosis Abnormal mammogram Abnormal mammogram, unspecified [facility] Diagnosis Encounter for screening mammogram for breast cancer documented in this encounter [facility] note* Diagnosis Secondary glaucoma, indeterminate stage, 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 [facility]* Diagnosis Encounter for screening mammogram for breast cancer documented in this encounter [facility] note* Diagnosis Trigger finger, unspecified finger, unspecified laterality documented in this encounter [facility] note* Diagnosis Bacterial sinusitis- Primary Unspecified sinusitis (chronic) documented in this encounter [facility] note* Diagnosis Onset Date Resolution Status Injury of right rotator cuff acute [facility] Work Phone: [facility]* Diagnosis Encounter for gynecological examination (general) (routine) without abnormal findings- Primary Encounter for screening for human papillomavirus (HPV) Special screening examination for human papillomavirus (HPV) Pap smear for cervical cancer screening Screening for malignant neoplasm of the cervix Encounter for screening mammogram for breast cancer documented in this encounter [facility] note* Diagnosis 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 injury Post-traumatic headache, unspecified documented in this encounter [facility] note* Diagnosis Secondary glaucoma, indeterminate stage, 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 Pseudophakia of both eyes Lens replaced by other means Legally blind Legal blindness, as defined in [place] documented in this encounter [facility] note* Diagnosis Hypertension Unspecified essential hypertension Mixed hyperlipidemia Medication management Encounter for long-term (current) use of other medications documented in this encounter [facility] note* Diagnosis Annual wellness visit- Primary [...] [place] Mixed hyperlipidemia documented in this encounter [facility] note* Diagnosis Allergic contact dermatitis due to plants, except food- Primary Contact dermatitis and other eczema due to plants (except food) documented in this encounter [facility] note* Diagnosis Establishing care with [...] Post-traumatic headache, unspecified [facility] Diagnosis Establishing care with [...] involving digestive system [facility] Diagnosis Legally blind- Primary Legal blindness, as defined in [place] 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 Trigger finger, unspecified finger, unspecified laterality Mixed hyperlipidemia Primary hypertension Unspecified essential hypertension Swelling of both hands Gastroesophageal reflux disease with esophagitis, unspecified whether hemorrhage documented in this encounter [facility] note* Diagnosis Establishing care with [...] Other screening mammogram documented in this encounter [facility] note* Diagnosis Establishing care with [...] anomaly of skin documented in this encounter [facility] note* Diagnosis Establishing care with [...] unspecified whether hemorrhage [facility] Diagnosis Establishing care with [...] COVID-19 virus- Primary [facility] Diagnosis Establishing care with [...] apnea (adult) (pediatric) documented in this encounter [facility] note* Diagnosis Establishing care with [...] anomaly of skin [facility] Diagnosis Establishing care with [...] to menopause- Primary [facility]* Diagnosis Establishing care with [...] Other sleep disturbances documented in this encounter [facility] note* Diagnosis Establishing care with [...] Insomnia, unspecified type documented in this encounter [facility] note* Diagnosis Establishing care with [...] unspecified depression type documented in this encounter [facility] note* Diagnosis Establishing care with [...] streaks of choroid documented in this encounter [facility] note* Diagnosis Establishing care with [...] streaks of choroid documented in this encounter [facility] note* Diagnosis Establishing care with [...] for breast cancer [facility] Diagnosis Establishing care with new [...] anomaly of skin [facility]* Diagnosis Establishing care with new [...] site not specified documented in this encounter [facility] note* Diagnosis Establishing care with [...] unspecified Other fatigue documented in this encounter [facility] note* Diagnosis Establishing care with [...] apnea (adult) (pediatric) [facility] Diagnosis Establishing care with [...] Hypokalemia- Primary Hypopotassemia [facility] Diagnosis Establishing care with [...] unspecified type- Primary documented in this encounter [facility] note* Diagnosis Establishing care with [...] apnea (adult) (pediatric) [facility] Diagnosis Establishing care with [...] deficiency Mixed hyperlipidemia [facility] Diagnosis Establishing care with new [...] apnea, unspecified type [facility] Diagnosis Establishing care with [...] Unspecified essential hypertension [facility] Diagnosis Establishing care with [...] of left eye [facility] Diagnosis Establishing care with [...] unspecified single disease [facility] Diagnosis Establishing care with [...] unspecified single disease documented in this encounter [facility] note* Diagnosis Establishing care with [...] deficiency Mixed hyperlipidemia documented in this encounter [facility] note* Diagnosis Establishing care with [...] Other specified complications [facility] Diagnosis Establishing care with new [...] 126/82 11/18/2023 124/72 documented in this encounter [facility] note* Diagnosis Establishing care with [...] glaucoma surgery- Primary documented in this encounter [facility] note* Diagnosis Establishing care with [...] Insomnia, unspecified type [facility] Diagnosis Establishing care with new [...] following other surgery [facility] Diagnosis Establishing care with [...] of unspecified site documented in this encounter [facility] note* Diagnosis Establishing care with [...] plants (except food) [facility] Diagnosis Establishing care with new [...] indeterminate stage, bilateral [facility] Diagnosis Establishing care with new [...] specified erythematous condition documented in this encounter [facility] Discharge instructionsAdditional Instructions Follow-up with your primary care physician. Return back to ED if symptoms change or worsen.[facility] Work Phone: Reason for referral (narrative)* Diagnostic Procedure Only (Routine) - Pending Review Specialty Diagnoses / Procedures Referred By Contac t Referred To Contact [facility] Diagnoses Encounter for screening mammogram for breast cancer Procedures GENOVEVA SCREENING SCREENING MAMMOGRAPHY BI 2-VIEW BREAST INC Destiney Proctor APRN.CNP [address] [place] [address] [facility] [address] [place] [address] Referral ID Status Reason Start Date Expiration Date Visits Requested Visits Authorized [id number] Pending Review Auto-Generat ed Referral 12/04/2021 01/03/2023 1 1 [facility] (narrative)* Outpatient Procedure (Routine) - Pending Review Specialty Diagnoses / Procedures [facility] Diagnoses Pain in both hands Procedures EMG(NEURO/NI) NERVE CONDUCTION STUDIES 9-10 STUDIES Massimo Roberts MD [address] [place] [address] [address] Referral ID Status Reason Start Date Expiration Date Visits Requested Visits Authorized [id number] Pending Review Auto-Generat ed Referral 05/03/2022 05/03/2023 1 1 [facility] for [facility] (narrative)* Outpatient Procedure (Routine) - Pending Review Specialty Diagnoses / Procedures [facility] Diagnoses PXE (pseudoxanthoma elasticum) Procedures ECHO ECHO TTHRC R-T 2D W/WOM-MODE COMPL SPEC&COLR D Charlene Grossman MD [address] [place] [address] [facility] [place] [address] [place] [address] Referral ID Status Reason Start Date Expiration Date Visits Requested Visits Authorized [id number] Pending Review Auto-Generat ed Referral 2 06/20/2023 1 1 [facility] (narrative)* Diagnostic Procedure Only (Routine) - Pending Review Specialty Diagnoses / Procedures Referred By Contac t Referred To Contact [facility] Diagnoses Abnormal mammogram Procedures GENOVEVA DIAGNOSTIC RT DIAGNOSTIC MAMMOGRAPHY COMPUTER-AIDED DETCJ UNI Destiney Pendleton APRN.NREMT [address] [address] [facility] [address] [place] [address] Referral ID Status Reason Start Date Expiration Date Visits Requested Visits Authorized [id number] Pending Review Auto-Generat ed Referral 09/28/2022 10/28/2023 1 1 * Diagnostic Procedure Only (Routine) - Pending Review Specialty Diagnoses / Procedures Referred By Yunierac t Referred To Contact [facility] Diagnoses Abnormal mammogram Procedures US BREAST LTD RT US BREAST UNI REAL TIME WITH IMAGE LIMITED Destiney Pendleton APRN.NREMT [address] [place] [address] [facility] [address] [place] [address] Referral ID Status Reason Start Date Expiration Date Visits Requested Visits Authorized [id number] Pending Review Auto-Generat ed Referral 09/28/2022 10/28/2023 1 1 [facility] (narrative)* Diagnostic Procedure Only (Routine) - Closed Specialty Diagnoses / Procedures Referred By Contac t Referred To Contact XR IMAGING Diagnoses Pain in both hands Procedures XR HAND GENERAL 3V PA/LAT/OBL BILATERAL RADEX HAND MINIMUM 3 VIEWS Massimo Roberts MD [address] [place] [address] X[facility] Imaging Referral ID Status Reason Start Date Expiration Date V isits Requested Visits Authorized [id number] Closed Auto-Generate d Referral 10/01/2022 10/31/2023 1 1 [facility] (narrative)* Outpatient Procedure (Routine) - Authorized Specialty Diagnoses / Procedures Referred By Contac t Referred To Contact [facility] Diagnoses Change in bowel habits Procedures COLONOSCOPY DIAGNOSTIC COLONOSCOPY FLX DX W/COLLJ SPEC WHEN PFRMD Cande Pozo PA-C [address] [place] [address] [place] [id number] Referral ID Status Reason Start Date Expiration Date Visits Requested Visits Authorized [id number] Authorized Auto-Generat ed Referral 04/30/2023 04/30/2024 1 1 * Outpatient Procedure (Routine) - Authorized Specialty Diagnoses / Procedures Referred By Shiraz t Referred To Contact [facility] Diagnoses Gastroesophageal reflux disease, unspecified whether esophagitis present Procedures EGD DIAGNOSTIC ESOPHAGOGASTRODUODENOSC OPY TRANSORAL DIAGNOSTIC Cande Pozo PA-C [address] [place] [address] [address] Referral ID Status Reason Start Date Expiration Date Visits Requested Visits Authorized [id number] Authorized Auto-Generat ed Referral 04/30/2023 04/30/2024 1 1 [facility] (narrative)* Outpatient Procedure (Routine) - Pending Review Specialty Diagnoses / Procedures Referred By Contac t Referred To Contact [facility] Diagnoses Numbness and tingling in right hand Procedures EMG(NEURO/NI) NERVE CONDUCTION STUDIES 9-10 STUDIES Massimo Roberts MD [address] [place] [address] Neurological [place] [id number] Referral ID Status Reason Start Date Expiration Date Visits Requested Visits Authorized [id number] Pending Review Auto-Generat ed Referral 04/25/2023 04/25/2024 1 1 [facility] for [facility] (narrative)* Diagnostic Procedure Only (Routine) - Closed Specialty Diagnoses / Procedures Referred By Contac t Referred To Contact [facility] Diagnoses Abnormal mammogram Procedures US BREAST LTD RT US BREAST UNI REAL TIME WITH IMAGE LIMITED Destiney Pendleton APRN.NREMT [address] [place] [address] [facility] [address] [place] [address] Referral ID Status Reason Start Date Expiration Date V isits Requested Visits Authorized [id number] Closed Auto-Generate d Referral 09/28/2022 10/28/2023 1 1 [facility] (narrative)* Diagnostic Procedure Only (Routine) - Closed Specialty Diagnoses / Procedures Referred By Contac t Referred To Contact XR IMAGING Diagnoses Pain in both hands Procedures XR HAND GENERAL 3V PA/LAT/OBL BILATERAL RADEX HAND MINIMUM 3 VIEWS Massimo Roberts MD [address] [place] [address] [place] [address] Referral ID Status Reason Start Date Expiration Date V isits Requested Visits Authorized [id number] Closed Auto-Generate d Referral 10/01/2022 10/31/2023 1 1 [facility] (narrative)* Diagnostic Procedure Only (Routine) - Closed Specialty Diagnoses / Procedures Referred By Contac t Referred To Contact [facility] Diagnoses Encounter for screening mammogram for breast cancer Procedures GENOVEVA SCREENING SCREENING MAMMOGRAPHY BI 2-VIEW BREAST INC CAD Destiney Pendleton APRN.NREMT [address] [place] [address] [facility] [address] [place] [address] Referral ID Status Reason Start Date Expiration Date V isits Requested Visits Authorized [id number] Closed Auto-Generate d Referral 09/05/2022 09/01/2023 1 1 [facility] (narrative)* Diagnostic Procedure Only (Routine) - Pending Review Specialty Diagnoses / Procedures Referred By Contac t Referred To Contact [facility] Diagnoses Encounter for gynecological examination (general) (routine) without abnormal findings Encounter for screening mammogram for breast cancer Procedures GENOVEVA SCREENING SCREENING MAMMOGRAPHY BI 2-VIEW BREAST INC CAD Destiney Pendleton APRN.CNP [address] [place] [address] [facility] [address] [place] [address] Referral ID Status Reason Start Date Expiration Date Visits Requested Visits Authorized [id number] Pending Review Auto-Generat ed Referral 12/24/2023 01/22/2025 1 1 [facility] (narrative)* Outpatient Procedure (Routine) - Closed Specialty Diagnoses / Procedures Referred By Contac t Referred To Contact [facility] Diagnoses Change in bowel habits Procedures COLONOSCOPY DIAGNOSTIC COLONOSCOPY FLX DX W/COLLJ SPEC WHEN PFRMD Cande Pozo PA-C [address] [place] [address] [facility] [address] [place] [address] Referral ID Status Reason Start Date Expiration Date V isits Requested Visits Authorized [id number] Closed Auto-Generate d Referral 04/30/2023 04/30/2024 1 1 * Outpatient Procedure (Routine) - Closed Specialty Diagnoses / Procedures Referred By Contac t Referred To Contact [facility] Diagnoses Gastroesophageal reflux disease, unspecified whether esophagitis present Procedures EGD DIAGNOSTIC ESOPHAGOGASTRODUODENOSC OPY TRANSORAL DIAGNOSTIC Cande Pozo PA-C [address] [place] [address] [facility] [address] [place] [address] Referral ID Status Reason Start Date Expiration Date V isits Requested Visits Authorized [id number] Closed Auto-Generate d Referral 04/30/2023 04/30/2024 1 1 [facility] (narrative)* Diagnostic Procedure Only (Routine) - Authorized Specialty Diagnoses / Procedures Referred By Shiraz johnson Referred To Contact [facility] Diagnoses Encounter for screening mammogram for malignant neoplasm of breast Procedures GENOVEVA SCREENING W LILLY SCREENING DIGITAL BREAST TOMOSYNTHESIS BI SCREENING MAMMOGRAPHY BI 2-[place] [address] [place] [address] [facility] [address] [place] [address] Referral ID Status Reason Start Date Expiration Date Visits Requested Visits Authorized [id number] Authorized Auto-Generat ed Referral 07/12/2025 1 1 [facility] for referral (narrative)* Outpatient Procedure (Routine) - Closed Specialty Diagnoses / Procedures Referred By Shiraz johnson Referred To Contact [facility] Diagnoses PXE (pseudoxanthoma elasticum) Procedures US CAROTID ARTERIES MARYAN [facility] LAB DUPLEX SCAN EXTRACRANIAL ART COMPL BI STUDY Pennie Davis MD [address] [place] [address] [facility] [address] [place] [address] Referral ID Status Reason Start Date Expiration Date V isits Requested Visits Authorized [id number] Closed Auto-Generate d Referral 05/14/2024 05/14/2025 1 1 [facility] (narrative)No reason for referral information [facility]WBrec[facility] Work Phone: Reason for visit Narrative* Diagnostic Procedure Only (Routine) - Closed Specialty Diagnoses / Procedures Referred By Shiraz t Referred To Contact XR IMAGING Diagnoses Pain Procedures XR HAND GENERAL 3V PA/LAT/OBL BILATERAL RADEX HAND MINIMUM 3 VIEWS Massimo Roberts MD [address] [place] [address] [place] [address] Referral ID Status Reason Start Date Expiration Date V isits Requested Visits Authorized [id number] Closed Auto-Generate d Referral 04/20/2022 09/01/2023 1 1 [facility] Narrative* Diagnostic Procedure Only (Routine) - Closed Specialty Diagnoses / Procedures Referred By Shiraz t Referred To Contact [facility] Diagnoses Abnormal mammogram Procedures GENOVEVA DIAGNOSTIC RT DIAGNOSTIC MAMMOGRAPHY COMPUTER-AIDED DETCJ UNI ArmstrongDestiney, WIRED MUSIC OPERATOR.NREMT [address] [place] [address] [facility] [address] [place] [address] Referral ID Status Reason Start Date Expiration Date V isits Requested Visits Authorized [id number] Closed Auto-Generate d Referral 09/28/2022 10/28/2023 1 1 [facility] Narrative* Diagnostic Procedure Only (Routine) - Closed Specialty Diagnoses / Procedures Referred By Shiraz t Referred To Contact [facility] Diagnoses Encounter for screening mammogram for breast cancer Procedures GENOVEVA SCREENING SCREENING MAMMOGRAPHY BI 2-VIEW BREAST INC CAD ArmstrongAudiee, WIRED MUSIC OPERATOR.NREMT [address] [place] [address] [facility] [address] [place] [address] Referral ID Status Reason Start Date Expiration Date V isits Requested Visits Authorized [id number] Closed Auto-Generate d Referral 12/10/2022 01/09/2024 [facility] Narrative[facility] Outpatient Procedure (Routine) - Closed Specialty Diagnoses / Procedures Referred By Shiraz t Referred To Contact [facility] Diagnoses Change in bowel habits Procedures COLONOSCOPY DIAGNOSTIC COLONOSCOPY FLX DX W/COLLJ SPEC WHEN PFRMD Cande Pozo, JAZZMINE [address] [place] [address] [facility] [address] [place] [address] Referral ID Status Reason Start Date Expiration Date V isits Requested Visits Authorized [id number] Closed Auto-Generate d Referral 04/30/2023 04/30/2024 1 1 [facility] Procedure Only (Routine) - Closed Specialty Diagnoses / Procedures Referred By Contac t Referred To Contact [facility] Diagnoses Encounter for gynecological examination (general) (routine) without abnormal findings Encounter for screening mammogram for breast cancer Procedures GENOVEVA SCREENING SCREENING MAMMOGRAPHY BI 2-VIEW BREAST INC CAD Destiney Pendleton, WIRED MUSIC OPERATOR.NREMT [address] [place] [address] Phone: tel: fax: [facility] [address] [place] [address] Referral ID Status Reason Start Date Expiration Date V isits Requested Visits Authorized [id number] Closed Auto-Generate d Referral 12/24/2023 01/22/2025 1 1 [facility] Advance Directives Documents on File Type Date Recorded Patient Briar Wood Sorter Expl anation Advance Directive(s) 10/26/2021 12:12 PM Advance Directive(s) 09/14/2021 11:54 AM Advance Directive(s) 06/22/2019 12:39 PM Advance Directive(s) 02/03/2018 1:55 PM Advance Directive(s) 01/30/2018 9:51 AM Documents on File Type Date Recorded Patient Briar Wood Sorter Expl anation Advance Directive(s) 10/26/2021 12:12 PM Advance Directive(s) 09/14/2021 11:54 AM Advance Directive(s) 06/22/2019 12:39 PM Advance Directive(s) 02/03/2018 1:55 PM Advance Directive(s) 01/30/2018 9:51 AM Advance Directive Response Recorded Date/ Time Advance Directives Yes August 3:53pm Living Will Yes November 20, 2021 5:09pm Power of Nurse Transitional Yes November 20 5:09pm Advance Directive Response Recorded Date/ Time Advance Directives Yes November 24, 3:06pm Advance Directive Response Recorded Date/ Time Do you have a Healthcare Power of Nurse Transitional? Yes May 27, 2025 6:56pm Advance Directives Yes March 25th, 2 025 3:06pm Advance Directive Response Recorded Date/ Time Do you have a Healthcare Power of Nurse Transitional? Yes May 27, 2025 6:56pm Do you have a Healthcare Power of Nurse Transitional? Yes June 17, 2025 6:25pm Name of Medical Power of Nurse Transitional Melvin Nassar June 17, 2025 6:25pm Do you have a Healthcare Power of Nurse Transitional? No June 23, 2025 5:47pm Do you have a Healthcare Power of Nurse Transitional? No June 29, 2025 2:44am Advance Directives Yes November 24 025 3:06pm Advance Directive Response Recorded Date/ Time Do you have a Healthcare Power of Nurse Transitional? Yes May 27, 2025 5:56pm Do you have a Healthcare Power of Nurse Transitional? Yes June 17, 2025 5:25pm Name of Medical Power of Nurse Transitional Melvin Nassar June 17, 2025 5:25pm Do you have a Healthcare Power of Nurse Transitional? No June 23, 2025 4:47pm Do you have a Healthcare Power of Nurse Transitional? No June 29, 2025 1:44am Do you have a Healthcare Power of Nurse Transitional? No July 10, 2025 3:06pm Advance Directives Yes November 24 2:06pm Reason for Referral Specialty Diagnoses / Procedures Referred By Shiraz johnson Referred To Contact [facility] Diagnoses 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) Vertigo Memory deficits New daily persistent headache Procedures MRI BRAIN WO/W IVCON MRI BRAIN BRAIN STEM W/O W/CONTRAST MATERIAL Pennie Davis MD [address] [place] [address] [facility] Referral ID Status Reason Start Date Expiration Date Visits Requested Visits Authorized [id number] Authorized Auto-Generat ed Referral 12/25/2021 01/24/2023 1 1 Specialty Diagnoses / Procedures Referred By Shiraz johnson Referred To Contact [facility] Diagnoses Blindness right eye category 3, blindness left eye category 4 Procedures CONSULT TO FOOD BEVERAGE SUPERVISOR OCCUPATIONAL THERAPY EVAL HIGH COMPLEX 60 MINS Wolf Fox, OD [address] [place] [address] [facility] [address] [address] Referral ID Status Reason Start Date Expiration Date Visits Requested Visits Authorized [id number] Pending Review Auto-Generat ed Referral 08/16/2023 1 1 Specialty Diagnoses / Procedures Referred By Contac t Referred To Contact [facility] Diagnoses Difficulty with household tasks Impaired mobility and personal care Personal care impairment Complaints of difficulty with reading Blindness right eye category 3, blindness left eye category 4 Procedures OT REHAB FOLLOW UP ORDER THERAPEUT ACTVITY DIRECT PT CONTACT EACH 15 MIN [place] [address] [place] [id number] [facility] [address] [address] Referral ID Status Reason Start Date Expiration Date Visits Requested Visits Authorized [id number] Pending Review PCP Requested Referral Auto-Generate d Referral 09/19/2022 12/18/2022 1 1 Specialty Diagnoses / Procedures Referred By Contac t Referred To Contact Gastroenterology Diagnoses Gastroesophageal reflux disease with esophagitis, unspecified whether hemorrhage Procedures CONSULT TO GASTROENTEROLOGY OFFICE/OUTPATIENT [facility] MDM 60-74 MINUTES Pennie Davis MD [address] [place] [id number] Referral ID Status Reason Start Date Expiration Date Visits Requested Visits Authorized [id number] Pending Review PCP Requested Referral 10/16/2022 10/16/2023 1 1 Specialty Diagnoses / Procedures Referred By Contac t Referred To Contact [facility] Diagnoses Gastroesophageal reflux disease with esophagitis, unspecified whether hemorrhage Procedures ECG COMPLETE ECG ROUTINE ECG W/LEAST 12 LDS W/I&R Pennie Davis MD [address] [place] [address] [facility] [address] [address] Referral ID Status Reason Start Date Expiration Date Visits Requested Visits Authorized [id number] Pending Review Auto-Generat ed Referral 10/16/2022 10/16/2023 1 1 Specialty Diagnoses / Procedures Referred By Contac t Referred To Contact [facility] Diagnoses Trigger ring finger of right hand Trigger middle finger of left hand Procedures CONSULT TO FOOD BEVERAGE SUPERVISOR OCCUPATIONAL THERAPY [facility] 60 MINS Taina Fan PA-C [address] [place] [address] [facility] [address] [place] [address] Referral ID Status Reason Start Date Expiration Date Visits Requested Visits Authorized [id number] Pending Review Auto-Generat ed Referral 11/19/2022 11/19/2023 1 1 Specialty Diagnoses / Procedures Referred By Contac t Referred To Contact Destiney Pendleton APRN.NREMT [address] [facility] [place] [address] Referral ID Status Reason Start Date Expiration Date Visits Re quested Visits Authorized [id number] Closed 1 1 Specialty Diagnoses / Procedures Referred By Contac t Referred To Contact Diagnoses 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 injury Calli Gerber, WIRED MUSIC OPERATOR.NREMT [address] [place] [address] Referral ID Status Reason Start Date Expiration Date Visits Re quested Visits Authorized [id number] Closed 1 1 Specialty Diagnoses / Procedures Referred By Contac t Referred To Contact Diagnoses DAYSI (obstructive sleep apnea) 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) Procedures CONSULT TO SLEEP MEDICINE - ADULT OFFICE/OUTPATIENT [facility] 60 MINUTES Pennie Davis MD [address] [place] [address] Referral ID Status Reason Start Date Expiration Date Visits Requested Visits Authorized [id number] Authorized PCP Requested Referral 07/28/2025 1 1 Specialty Diagnoses / Procedures Referred By Contac t Referred To Contact Diagnoses Vasomotor symptoms due to menopause Destiney Pendleton APRN.NREMT [address] [facility] [place] [address] Referral ID Status Reason Start Date Expiration Date V isits Requested Visits Authorized [id number] Authorized 06/16/2024 09/15/2025 1 1 Medications Administered Section Active Administered Medications - up to 3 most recent administrations Medication Order MAR Action Action Date Dose Rate Site fluorescein-benoxinate 0.25-0.4 % 1 Drop (FLURESS) 1 Drop, BOTH EYES, DIRECTED, Starting on Sat02/27/22 at 1500, Until Sat02/28/22 at 0259, Administer for applanation tonometry. In the event of a Fluress shortage, administer Nome-Fluor 1 drop into both eyes as directed [...] Given 06/25/2022 11:25 AM EDT 0.1 mL xflifyip-exocfafue-ypkcpejie sone 3.5 mg/g-10,000 unit/g-0.1 % (POLYDEX) X [...] :59am Room June 04, 2025 11 :43am Reason for [...] or prosecute any alcohol or drug abuse patient.[facility] the event this information is protected by the Federal Confidentiality of Alcohol and Drug Abuse Patient Records regulations: The Federal rules restrict any use of the information to criminally investigate or prosecute any alcohol or drug abuse patient.[facility] the event this information is protected by the Federal Confidentiality of Alcohol and Drug Abuse Patient Records regulations: The Federal rules restrict any use of the information to criminally investigate or prosecute any alcohol or drug abuse patient.[facility] the event this information is protected by the Federal Confidentiality of Alcohol and Drug Abuse Patient Records regulations: The Federal rules restrict any use of the information to criminally investigate or prosecute any alcohol or drug abuse patient.[facility] the event this information is protected by the Federal Confidentiality of Alcohol and Drug Abuse Patient Records regulations: The Federal rules restrict any use of the information to criminally investigate or prosecute any alcohol or drug abuse patient.[facility] Hospital[facility] the event this information is protected by the Federal Confidentiality of Alcohol and Drug Abuse Patient Records regulations: The Federal rules restrict any use of the information to criminally investigate or prosecute any alcohol or drug abuse patient.[facility] Hospital[facility] the event this information is protected by the Federal Confidentiality of Alcohol and Drug Abuse Patient Records regulations: The Federal rules restrict any use of the information to criminally investigate or prosecute any alcohol or drug abuse patient.[facility] Hospital[facility] the event this information is protected by the Federal Confidentiality of Alcohol and Drug Abuse Patient Records regulations: The Federal rules restrict any use of the information to criminally investigate or prosecute any alcohol or drug abuse patient.[facility] Hospital[facility] the event this information is protected by the Federal Confidentiality of Alcohol and Drug Abuse Patient Records regulations: The Federal rules restrict any use of the information to criminally investigate or prosecute any alcohol or drug abuse patient.[facility] HospitalIn the event this information is protected by the Federal Confidentiality of Alcohol and Drug Abuse Patient Records regulations: The Federal rules restrict any use of the information to criminally investigate or prosecute any alcohol or drug abuse patient.[facility] Hospital[facility] the event this information is protected by the Federal Confidentiality of Alcohol and Drug Abuse Patient Records regulations: The Federal rules restrict any use of the information to criminally investigate or prosecute any alcohol or drug abuse patient.[facility] HospitalIn the event this information is protected by the Federal Confidentiality of Alcohol and Drug Abuse Patient Records regulations: The Federal rules restrict any use of the information to criminally investigate or prosecute any alcohol or drug abuse patient.[facility] HospitalIn the event this information is protected by the Federal Confidentiality of Alcohol and Drug Abuse Patient Records regulations: The Federal rules restrict any use of the information to criminally investigate or prosecute any alcohol or drug abuse patient.[facility] HospitalIn the event this information is protected by the Federal Confidentiality of Alcohol and Drug Abuse Patient Records regulations: The Federal rules restrict any use of the information to criminally investigate or prosecute any alcohol or drug abuse patient.[facility] HospitalIn the event this information is protected by the Federal Confidentiality of Alcohol and Drug Abuse Patient Records regulations: The Federal rules restrict any use of the information to criminally investigate or prosecute any alcohol or drug abuse patient.[facility] HospitalIn the event this information is protected by the Federal Confidentiality of Alcohol and Drug Abuse Patient Records regulations: The Federal rules restrict any use of the information to criminally investigate or prosecute any alcohol or drug abuse patient.[facility] HospitalIn the event this information is protected by the Federal Confidentiality of Alcohol and Drug Abuse Patient Records regulations: The Federal rules restrict any use of the information to criminally investigate or prosecute any alcohol or drug abuse patient.[facility] HospitalIn the event this information is protected by the Federal Confidentiality of Alcohol and Drug Abuse Patient Records regulations: The Federal rules restrict any use of the information to criminally investigate or prosecute any alcohol or drug abuse patient.[facility] HospitalIn the event this information is protected by the Federal Confidentiality of Alcohol and Drug Abuse Patient Records regulations: The Federal rules restrict any use of the information to criminally investigate or prosecute any alcohol or drug abuse patient.[facility] HospitalIn the event this information is protected by the Federal Confidentiality of Alcohol and Drug Abuse Patient Records regulations: The Federal rules restrict any use of the information to criminally investigate or prosecute any alcohol or drug abuse patient.[facility] HospitalIn the event this information is protected by the Federal Confidentiality of Alcohol and Drug Abuse Patient Records regulations: The Federal rules restrict any use of the information to criminally investigate or prosecute any alcohol or drug abuse patient.[facility] HospitalIn the event this information is protected by the Federal Confidentiality of Alcohol and Drug Abuse Patient Records regulations: The Federal rules restrict any use of the information to criminally investigate or prosecute any alcohol or drug abuse patient.[facility] HospitalIn the event this information is protected by the Federal Confidentiality of Alcohol and Drug Abuse Patient Records regulations: The Federal rules restrict any use of the information to criminally investigate or prosecute any alcohol or drug abuse patient.[facility] HospitalIn the event this information is protected by the Federal Confidentiality of Alcohol and Drug Abuse Patient Records regulations: The Federal rules restrict any use of the information to criminally investigate or prosecute any alcohol or drug abuse patient.[facility] HospitalIn the event this information is protected by the Federal Confidentiality of Alcohol and Drug Abuse Patient Records regulations: The Federal rules restrict any use of the information to criminally investigate or prosecute any alcohol or drug abuse patient.[facility] HospitalIn the event this information is protected by the Federal Confidentiality of Alcohol and Drug Abuse Patient Records regulations: The Federal rules restrict any use of the information to criminally investigate or prosecute any alcohol or drug abuse patient.[facility] HospitalIn the event this information is protected by the Federal Confidentiality of Alcohol and Drug Abuse Patient Records regulations: The Federal rules restrict any use of the information to criminally investigate or prosecute any alcohol or drug abuse patient.[facility] HospitalIn the event this information is protected by the Federal Confidentiality of Alcohol and Drug Abuse Patient Records regulations: The Federal rules restrict any use of the information to criminally investigate or prosecute any alcohol or drug abuse patient.[facility] HospitalIn the event this information is protected by the Federal Confidentiality of Alcohol and Drug Abuse Patient Records regulations: The Federal rules restrict any use of the information to criminally investigate or prosecute any alcohol or drug abuse patient.[facility] HospitalIn the event this information is protected by the Federal Confidentiality of Alcohol and Drug Abuse Patient Records regulations: The Federal rules restrict any use of the information to criminally investigate or prosecute any alcohol or drug abuse patient.[facility] HospitalIn the event this information is protected by the Federal Confidentiality of Alcohol and Drug Abuse Patient Records regulations: The Federal rules restrict any use of the information to criminally investigate or prosecute any alcohol or drug abuse patient.[facility] HospitalIn the event this information is protected by the Federal Confidentiality of Alcohol and Drug Abuse Patient Records regulations: The Federal rules restrict any use of the information to criminally investigate or prosecute any alcohol or drug abuse patient.[facility] HospitalIn the event this information is protected by the Federal Confidentiality of Alcohol and Drug Abuse Patient Records regulations: The Federal rules restrict any use of the information to criminally investigate or prosecute any alcohol or drug abuse patient.[facility] HospitalIn the event this information is protected by the Federal Confidentiality of Alcohol and Drug Abuse Patient Records regulations: The Federal rules restrict any use of the information to criminally investigate or prosecute any alcohol or drug abuse patient.[facility] HospitalIn the event this information is protected by the Federal Confidentiality of Alcohol and Drug Abuse Patient Records regulations: The Federal rules restrict any use of the information to criminally investigate or prosecute any alcohol or drug abuse patient.[facility] HospitalIn the event this information is protected by the Federal Confidentiality of Alcohol and Drug Abuse Patient Records regulations: The Federal rules restrict any use of the information to criminally investigate or prosecute any alcohol or drug abuse patient.[facility] HospitalIn the event this information is protected by the Federal Confidentiality of Alcohol and Drug Abuse Patient Records regulations: The Federal rules restrict any use of the information to criminally investigate or prosecute any alcohol or drug abuse patient.[facility] HospitalIn the event this information is protected by the Federal Confidentiality of Alcohol and Drug Abuse Patient Records regulations: The Federal rules restrict any use of the information to criminally investigate or prosecute any alcohol or drug abuse patient.[facility] HospitalIn the event this information is protected by the Federal Confidentiality of Alcohol and Drug Abuse Patient Records regulations: The Federal rules restrict any use of the information to criminally investigate or prosecute any alcohol or drug abuse patient.[facility] HospitalIn the event this information is protected by the Federal Confidentiality of Alcohol and Drug Abuse Patient Records regulations: The Federal rules restrict any use of the information to criminally investigate or prosecute any alcohol or drug abuse patient.[facility] HospitalIn the event this information is protected by the Federal Confidentiality of Alcohol and Drug Abuse Patient Records regulations: The Federal rules restrict any use of the information to criminally investigate or prosecute any alcohol or drug abuse patient.[facility] HospitalIn the event this information is protected by the Federal Confidentiality of Alcohol and Drug Abuse Patient Records regulations: The Federal rules restrict any use of the information to criminally investigate or prosecute any alcohol or drug abuse patient.[facility] HospitalIn the event this information is protected by the Federal Confidentiality of Alcohol and Drug Abuse Patient Records regulations: The Federal rules restrict any use of the information to criminally investigate or prosecute any alcohol or drug abuse patient.[facility] HospitalIn the event this information is protected by the Federal Confidentiality of Alcohol and Drug Abuse Patient Records regulations: The Federal rules restrict any use of the information to criminally investigate or prosecute any alcohol or drug abuse patient.[facility] HospitalIn the event this information is protected by the Federal Confidentiality of Alcohol and Drug Abuse Patient Records regulations: The Federal rules restrict any use of the information to criminally investigate or prosecute any alcohol or drug abuse patient.[facility] HospitalIn the event this information is protected by the Federal Confidentiality of Alcohol and Drug Abuse Patient Records regulations: The Federal rules restrict any use of the information to criminally investigate or prosecute any alcohol or drug abuse patient.[facility] HospitalIn the event this information is protected by the Federal Confidentiality of Alcohol and Drug Abuse Patient Records regulations: The Federal rules restrict any use of the information to criminally investigate or prosecute any alcohol or drug abuse patient.[facility] HospitalIn the event this information is protected by the Federal Confidentiality of Alcohol and Drug Abuse Patient Records regulations: The Federal rules restrict any use of the information to criminally investigate or prosecute any alcohol or drug abuse patient.[facility] HospitalIn the event this information is protected by the Federal Confidentiality of Alcohol and Drug Abuse Patient Records regulations: The Federal rules restrict any use of the information to criminally investigate or prosecute any alcohol or drug abuse patient.[facility] HospitalIn the event this information is protected by the Federal Confidentiality of Alcohol and Drug Abuse Patient Records regulations: The Federal rules restrict any use of the information to criminally investigate or prosecute any alcohol or drug abuse patient.[facility] HospitalIn the event this information is protected by the Federal Confidentiality of Alcohol and Drug Abuse Patient Records regulations: The Federal rules restrict any use of the information to criminally investigate or prosecute any alcohol or drug abuse patient.[facility] HospitalIn the event this information is protected by the Federal Confidentiality of Alcohol and Drug Abuse Patient Records regulations: The Federal rules restrict any use of the information to criminally investigate or prosecute any alcohol or drug abuse patient.[facility] HospitalIn the event this information is protected by the Federal Confidentiality of Alcohol and Drug Abuse Patient Records regulations: The Federal rules restrict any use of the information to criminally investigate or prosecute any alcohol or drug abuse patient.[facility] HospitalIn the event this information is protected by the Federal Confidentiality of Alcohol and Drug Abuse Patient Records regulations: The Federal rules restrict any use of the information to criminally investigate or prosecute any alcohol or drug abuse patient.[facility]In the event this information is protected by the Federal Confidentiality of Alcohol and Drug Abuse Patient Records regulations: The Federal rules restrict any use of the information to criminally investigate or prosecute any alcohol or drug abuse patient.[facility] HospitalIn the event this information is protected by the Federal Confidentiality of Alcohol and Drug Abuse Patient Records regulations: The Federal rules restrict any use of the information to criminally investigate or prosecute any alcohol or drug abuse patient.[facility] HospitalIn the event this information is protected by the Federal Confidentiality of Alcohol and Drug Abuse Patient Records regulations: The Federal rules restrict any use of the information to criminally investigate or prosecute any alcohol or drug abuse patient.[facility] HospitalIn the event this information is protected by the Federal Confidentiality of Alcohol and Drug Abuse Patient Records regulations: The Federal rules restrict any use of the information to criminally investigate or prosecute any alcohol or drug abuse patient.[facility] HospitalIn the event this information is protected by the Federal Confidentiality of Alcohol and Drug Abuse Patient Records regulations: The Federal rules restrict any use of the information to criminally investigate or prosecute any alcohol or drug abuse patient.[facility] HospitalIn the event this information is protected by the Federal Confidentiality of Alcohol and Drug Abuse Patient Records regulations: The Federal rules restrict any use of the information to criminally investigate or prosecute any alcohol or drug abuse patient.[facility] HospitalIn the event this information is protected by the Federal Confidentiality of Alcohol and Drug Abuse Patient Records regulations: The Federal rules restrict any use of the information to criminally investigate or prosecute any alcohol or drug abuse patient.[facility] HospitalIn the event this information is protected by the Federal Confidentiality of Alcohol and Drug Abuse Patient Records regulations: The Federal rules restrict any use of the information to criminally investigate or prosecute any alcohol or drug abuse patient.[facility] HospitalIn the event this information is protected by the Federal Confidentiality of Alcohol and Drug Abuse Patient Records regulations: The Federal rules restrict any use of the information to criminally investigate or prosecute any alcohol or drug abuse patient.[facility] HospitalIn the event this information is protected by the Federal Confidentiality of Alcohol and Drug Abuse Patient Records regulations: The Federal rules restrict any use of the information to criminally investigate or prosecute any alcohol or drug abuse patient.[facility] HospitalIn the event this information is protected by the Federal Confidentiality of Alcohol and Drug Abuse Patient Records regulations: The Federal rules restrict any use of the information to criminally investigate or prosecute any alcohol or drug abuse patient.[facility] HospitalIn the event this information is protected by the Federal Confidentiality of Alcohol and Drug Abuse Patient Records regulations: The Federal rules restrict any use of the information to criminally investigate or prosecute any alcohol or drug abuse patient.[facility] HospitalIn the event this information is protected by the Federal Confidentiality of Alcohol and Drug Abuse Patient Records regulations: The Federal rules restrict any use of the information to criminally investigate or prosecute any alcohol or drug abuse patient.[facility] HospitalIn the event this information is protected by the Federal Confidentiality of Alcohol and Drug Abuse Patient Records regulations: The Federal rules restrict any use of the information to criminally investigate or prosecute any alcohol or drug abuse patient.[facility] HospitalIn the event this information is protected by the Federal Confidentiality of Alcohol and Drug Abuse Patient Records regulations: The Federal rules restrict any use of the information to criminally investigate or prosecute any alcohol or drug abuse patient.[facility] HospitalIn the event this information is protected by the Federal Confidentiality of Alcohol and Drug Abuse Patient Records regulations: The Federal rules restrict any use of the information to criminally investigate or prosecute any alcohol or drug abuse patient.[facility] HospitalIn the event this information is protected by the Federal Confidentiality of Alcohol and Drug Abuse Patient Records regulations: The Federal rules restrict any use of the information to criminally investigate or prosecute any alcohol or drug abuse patient.[facility] HospitalIn the event this information is protected by the Federal Confidentiality of Alcohol and Drug Abuse Patient Records regulations: The Federal rules restrict any use of the information to criminally investigate or prosecute any alcohol or drug abuse patient.[facility] HospitalIn the event this information is protected by the Federal Confidentiality of Alcohol and Drug Abuse Patient Records regulations: The Federal rules restrict any use of the information to criminally investigate or prosecute any alcohol or drug abuse patient.[facility] HospitalIn the event this information is protected by the Federal Confidentiality of Alcohol and Drug Abuse Patient Records regulations: The Federal rules restrict any use of the information to criminally investigate or prosecute any alcohol or drug abuse patient.[facility] HospitalIn the event this information is protected by the Federal Confidentiality of Alcohol and Drug Abuse Patient Records regulations: The Federal rules restrict any use of the information to criminally investigate or prosecute any alcohol or drug abuse patient.[facility] HospitalIn the event this information is protected by the Federal Confidentiality of Alcohol and Drug Abuse Patient Records regulations: The Federal rules restrict any use of the information to criminally investigate or prosecute any alcohol or drug abuse patient.[facility] HospitalIn the event this information is protected by the Federal Confidentiality of Alcohol and Drug Abuse Patient Records regulations: The Federal rules restrict any use of the information to criminally investigate or prosecute any alcohol or drug abuse patient.[facility] HospitalIn the event this information is protected by the Federal Confidentiality of Alcohol and Drug Abuse Patient Records regulations: The Federal rules restrict any use of the information to criminally investigate or prosecute any alcohol or drug abuse patient.[facility] HospitalIn the event this information is protected by the Federal Confidentiality of Alcohol and Drug Abuse Patient Records regulations: The Federal rules restrict any use of the information to criminally investigate or prosecute any alcohol or drug abuse patient.[facility] HospitalIn the event this information is protected by the Federal Confidentiality of Alcohol and Drug Abuse Patient Records regulations: The Federal rules restrict any use of the information to criminally investigate or prosecute any alcohol or drug abuse patient.[facility] HospitalIn the event this information is protected by the Federal Confidentiality of Alcohol and Drug Abuse Patient Records regulations: The Federal rules restrict any use of the information to criminally investigate or prosecute any alcohol or drug abuse patient.[facility] HospitalIn the event this information is protected by the Federal Confidentiality of Alcohol and Drug Abuse Patient Records regulations: The Federal rules restrict any use of the information to criminally investigate or prosecute any alcohol or drug abuse patient.[facility] HospitalIn the event this information is protected by the Federal Confidentiality of Alcohol and Drug Abuse Patient Records regulations: The Federal rules restrict any use of the information to criminally investigate or prosecute any alcohol or drug abuse patient.[facility] HospitalIn the event this information is protected by the Federal Confidentiality of Alcohol and Drug Abuse Patient Records regulations: The Federal rules restrict any use of the information to criminally investigate or prosecute any alcohol or drug abuse patient.[facility] HospitalIn the event this information is protected by the Federal Confidentiality of Alcohol and Drug Abuse Patient Records regulations: The Federal rules restrict any use of the information to criminally investigate or prosecute any alcohol or drug abuse patient.[facility] HospitalIn the event this information is protected by the Federal Confidentiality of Alcohol and Drug Abuse Patient Records regulations: The Federal rules restrict any use of the information to criminally investigate or prosecute any alcohol or drug abuse patient.[facility] HospitalIn the event this information is protected by the Federal Confidentiality of Alcohol and Drug Abuse Patient Records regulations: The Federal rules restrict any use of the information to criminally investigate or prosecute any alcohol or drug abuse patient.[facility] HospitalIn the event this information is protected by the Federal Confidentiality of Alcohol and Drug Abuse Patient Records regulations: The Federal rules restrict any use of the information to criminally investigate or prosecute any alcohol or drug abuse patient.[facility] HospitalIn the event this information is protected by the Federal Confidentiality of Alcohol and Drug Abuse Patient Records regulations: The Federal rules restrict any use of the information to criminally investigate or prosecute any alcohol or drug abuse patient.[facility] HospitalIn the event this information is protected by the Federal Confidentiality of Alcohol and Drug Abuse Patient Records regulations: The Federal rules restrict any use of the information to criminally investigate or prosecute any alcohol or drug abuse patient.[facility] HospitalIn the event this information is protected by the Federal Confidentiality of Alcohol and Drug Abuse Patient Records regulations: The Federal rules restrict any use of the information to criminally investigate or prosecute any alcohol or drug abuse patient.[facility] HospitalIn the event this information is protected by the Federal Confidentiality of Alcohol and Drug Abuse Patient Records regulations: The Federal rules restrict any use of the information to criminally investigate or prosecute any alcohol or drug abuse patient.[facility] HospitalIn the event this information is protected by the Federal Confidentiality of Alcohol and Drug Abuse Patient Records regulations: The Federal rules restrict any use of the information to criminally investigate or prosecute any alcohol or drug abuse patient.[facility] HospitalIn the event this information is protected by the Federal Confidentiality of Alcohol and Drug Abuse Patient Records regulations: The Federal rules restrict any use of the information to criminally investigate or prosecute any alcohol or drug abuse patient.[facility] HospitalIn the event this information is protected by the Federal Confidentiality of Alcohol and Drug Abuse Patient Records regulations: The Federal rules restrict any use of the information to criminally investigate or prosecute any alcohol or drug abuse patient.[facility] HospitalIn the event this information is protected by the Federal Confidentiality of Alcohol and Drug Abuse Patient Records regulations: The Federal rules restrict any use of the information to criminally investigate or prosecute any alcohol or drug abuse patient.[facility] HospitalIn the event this information is protected by the Federal Confidentiality of Alcohol and Drug Abuse Patient Records regulations: The Federal rules restrict any use of the information to criminally investigate or prosecute any alcohol or drug abuse patient.[facility] HospitalIn the event this information is protected by the Federal Confidentiality of Alcohol and Drug Abuse Patient Records regulations: The Federal rules restrict any use of the information to criminally investigate or prosecute any alcohol or drug abuse patient.[facility] HospitalIn the event this information is protected by the Federal Confidentiality of Alcohol and Drug Abuse Patient Records regulations: The Federal rules restrict any use of the information to criminally investigate or prosecute any alcohol or drug abuse patient.[facility] HospitalIn the event this information is protected by the Federal Confidentiality of Alcohol and Drug Abuse Patient Records regulations: The Federal rules restrict any use of the information to criminally investigate or prosecute any alcohol or drug abuse patient.[facility] HospitalIn the event this information is protected by the Federal Confidentiality of Alcohol and Drug Abuse Patient Records regulations: The Federal rules restrict any use of the information to criminally investigate or prosecute any alcohol or drug abuse patient.[facility] HospitalIn the event this information is protected by the Federal Confidentiality of Alcohol and Drug Abuse Patient Records regulations: The Federal rules restrict any use of the information to criminally investigate or prosecute any alcohol or drug abuse patient.[facility] HospitalIn the event this information is protected by the Federal Confidentiality of Alcohol and Drug Abuse Patient Records regulations: The Federal rules restrict any use of the information to criminally investigate or prosecute any alcohol or drug abuse patient.[facility] HospitalIn the event this information is protected by the Federal Confidentiality of Alcohol and Drug Abuse Patient Records regulations: The Federal rules restrict any use of the information to criminally investigate or prosecute any alcohol or drug abuse patient.[facility] HospitalIn the event this information is protected by the Federal Confidentiality of Alcohol and Drug Abuse Patient Records regulations: The Federal rules restrict any use of the information to criminally investigate or prosecute any alcohol or drug abuse patient.[facility] HospitalIn the event this information is protected by the Federal Confidentiality of Alcohol and Drug Abuse Patient Records regulations: The Federal rules restrict any use of the information to criminally investigate or prosecute any alcohol or drug abuse patient.[facility] HospitalIn the event this information is protected by the Federal Confidentiality of Alcohol and Drug Abuse Patient Records regulations: The Federal rules restrict any use of the information to criminally investigate or prosecute any alcohol or drug abuse patient.[facility] HospitalIn the event this information is protected by the Federal Confidentiality of Alcohol and Drug Abuse Patient Records regulations: The Federal rules restrict any use of the information to criminally investigate or prosecute any alcohol or drug abuse patient.[facility] HospitalIn the event this information is protected by the Federal Confidentiality of Alcohol and Drug Abuse Patient Records regulations: The Federal rules restrict any use of the information to criminally investigate or prosecute any alcohol or drug abuse patient.[facility] HospitalIn the event this information is protected by the Federal Confidentiality of Alcohol and Drug Abuse Patient Records regulations: The Federal rules restrict any use of the information to criminally investigate or prosecute any alcohol or drug abuse patient.[facility] HospitalIn the event this information is protected by the Federal Confidentiality of Alcohol and Drug Abuse Patient Records regulations: The Federal rules restrict any use of the information to criminally investigate or prosecute any alcohol or drug abuse patient.[facility] HospitalIn the event this information is protected by the Federal Confidentiality of Alcohol and Drug Abuse Patient Records regulations: The Federal rules restrict any use of the information to criminally investigate or prosecute any alcohol or drug abuse patient.[facility] HospitalIn the event this information is protected by the Federal Confidentiality of Alcohol and Drug Abuse Patient Records regulations: The Federal rules restrict any use of the information to criminally investigate or prosecute any alcohol or drug abuse patient.[facility] HospitalIn the event this information is protected by the Federal Confidentiality of Alcohol and Drug Abuse Patient Records regulations: The Federal rules restrict any use of the information to criminally investigate or prosecute any alcohol or drug abuse patient.[facility] HospitalIn the event this information is protected by the Federal Confidentiality of Alcohol and Drug Abuse Patient Records regulations: The Federal rules restrict any use of the information to criminally investigate or prosecute any alcohol or drug abuse patient.[facility] HospitalIn the event this information is protected by the Federal Confidentiality of Alcohol and Drug Abuse Patient Records regulations: The Federal rules restrict any use of the information to criminally investigate or prosecute any alcohol or drug abuse patient.[facility] HospitalIn the event this information is protected by the Federal Confidentiality of Alcohol and Drug Abuse Patient Records regulations: The Federal rules restrict any use of the information to criminally investigate or prosecute any alcohol or drug abuse patient.[facility] HospitalIn the event this information is protected by the Federal Confidentiality of Alcohol and Drug Abuse Patient Records regulations: The Federal rules restrict any use of the information to criminally investigate or prosecute any alcohol or drug abuse patient.[facility] HospitalIn the event this information is protected by the Federal Confidentiality of Alcohol and Drug Abuse Patient Records regulations: The Federal rules restrict any use of the information to criminally investigate or prosecute any alcohol or drug abuse patient.[facility] HospitalIn the event this information is protected by the Federal Confidentiality of Alcohol and Drug Abuse Patient Records regulations: The Federal rules restrict any use of the information to criminally investigate or prosecute any alcohol or drug abuse patient.[facility] HospitalIn the event this information is protected by the Federal Confidentiality of Alcohol and Drug Abuse Patient Records regulations: The Federal rules restrict any use of the information to criminally investigate or prosecute any alcohol or drug abuse patient.[facility] HospitalIn the event this information is protected by the Federal Confidentiality of Alcohol and Drug Abuse Patient Records regulations: The Federal rules restrict any use of the information to criminally investigate or prosecute any alcohol or drug abuse patient.[facility] HospitalIn the event this information is protected by the Federal Confidentiality of Alcohol and Drug Abuse Patient Records regulations: The Federal rules restrict any use of the information to criminally investigate or prosecute any alcohol or drug abuse patient.[facility] HospitalIn the event this information is protected by the Federal Confidentiality of Alcohol and Drug Abuse Patient Records regulations: The Federal rules restrict any use of the information to criminally investigate or prosecute any alcohol or drug abuse patient.[facility] HospitalIn the event this information is protected by the Federal Confidentiality of Alcohol and Drug Abuse Patient Records regulations: The Federal rules restrict any use of the information to criminally investigate or prosecute any alcohol or drug abuse patient.[facility] HospitalIn the event this information is protected by the Federal Confidentiality of Alcohol and Drug Abuse Patient Records regulations: The Federal rules restrict any use of the information to criminally investigate or prosecute any alcohol or drug abuse patient.[facility] HospitalIn the event this information is protected by the Federal Confidentiality of Alcohol and Drug Abuse Patient Records regulations: The Federal rules restrict any use of the information to criminally investigate or prosecute any alcohol or drug abuse patient.[facility] HospitalIn the event this information is protected by the Federal Confidentiality of Alcohol and Drug Abuse Patient Records regulations: The Federal rules restrict any use of the information to criminally investigate or prosecute any alcohol or drug abuse patient.[facility] HospitalIn the event this information is protected by the Federal Confidentiality of Alcohol and Drug Abuse Patient Records regulations: The Federal rules restrict any use of the information to criminally investigate or prosecute any alcohol or drug abuse patient.[facility] HospitalIn the event this information is protected by the Federal Confidentiality of Alcohol and Drug Abuse Patient Records regulations: The Federal rules restrict any use of the information to criminally investigate or prosecute any alcohol or drug abuse patient.[facility] HospitalIn the event this information is protected by the Federal Confidentiality of Alcohol and Drug Abuse Patient Records regulations: The Federal rules restrict any use of the information to criminally investigate or prosecute any alcohol or drug abuse patient.[facility] HospitalIn the event this information is protected by the Federal Confidentiality of Alcohol and Drug Abuse Patient Records regulations: The Federal rules restrict any use of the information to criminally investigate or prosecute any alcohol or drug abuse patient.[facility] HospitalIn the event this information is protected by the Federal Confidentiality of Alcohol and Drug Abuse Patient Records regulations: The Federal rules restrict any use of the information to criminally investigate or prosecute any alcohol or drug abuse patient.[facility] HospitalIn the event this information is protected by the Federal Confidentiality of Alcohol and Drug Abuse Patient Records regulations: The Federal rules restrict any use of the information to criminally investigate or prosecute any alcohol or drug abuse patient.[facility] HospitalIn the event this information is protected by the Federal Confidentiality of Alcohol and Drug Abuse Patient Records regulations: The Federal rules restrict any use of the information to criminally investigate or prosecute any alcohol or drug abuse patient.[facility] HospitalIn the event this information is protected by the Federal Confidentiality of Alcohol and Drug Abuse Patient Records regulations: The Federal rules restrict any use of the information to criminally investigate or prosecute any alcohol or drug abuse patient.[facility] HospitalIn the event this information is protected by the Federal Confidentiality of Alcohol and Drug Abuse Patient Records regulations: The Federal rules restrict any use of the information to criminally investigate or prosecute any alcohol or drug abuse patient.[facility] HospitalIn the event this information is protected by the Federal Confidentiality of Alcohol and Drug Abuse Patient Records regulations: The Federal rules restrict any use of the information to criminally investigate or prosecute any alcohol or drug abuse patient.[facility] HospitalIn the event this information is protected by the Federal Confidentiality of Alcohol and Drug Abuse Patient Records regulations: The Federal rules restrict any use of the information to criminally investigate or prosecute any alcohol or drug abuse patient.[facility] HospitalIn the event this information is protected by the Federal Confidentiality of Alcohol and Drug Abuse Patient Records regulations: The Federal rules restrict any use of the information to criminally investigate or prosecute any alcohol or drug abuse patient.[facility] HospitalIn the event this information is protected by the Federal Confidentiality of Alcohol and Drug Abuse Patient Records regulations: The Federal rules restrict any use of the information to criminally investigate or prosecute any alcohol or drug abuse patient.[facility] HospitalIn the event this information is protected by the Federal Confidentiality of Alcohol and Drug Abuse Patient Records regulations: The Federal rules restrict any use of the information to criminally investigate or prosecute any alcohol or drug abuse patient.[facility] HospitalIn the event this information is protected by the Federal Confidentiality of Alcohol and Drug Abuse Patient Records regulations: The Federal rules restrict any use of the information to criminally investigate or prosecute any alcohol or drug abuse patient.[facility] HospitalIn the event this information is protected by the Federal Confidentiality of Alcohol and Drug Abuse Patient Records regulations: The Federal rules restrict any use of the information to criminally investigate or prosecute any alcohol or drug abuse patient.[facility] HospitalIn the event this information is protected by the Federal Confidentiality of Alcohol and Drug Abuse Patient Records regulations: The Federal rules restrict any use of the information to criminally investigate or prosecute any alcohol or drug abuse patient.[facility] HospitalIn the event this information is protected by the Federal Confidentiality of Alcohol and Drug Abuse Patient Records regulations: The Federal rules restrict any use of the information to criminally investigate or prosecute any alcohol or drug abuse patient.[facility] HospitalIn the event this information is protected by the Federal Confidentiality of Alcohol and Drug Abuse Patient Records regulations: The Federal rules restrict any use of the information to criminally investigate or prosecute any alcohol or drug abuse patient.[facility] HospitalIn the event this information is protected by the Federal Confidentiality of Alcohol and Drug Abuse Patient Records regulations: The Federal rules restrict any use of the information to criminally investigate or prosecute any alcohol or drug abuse patient.[facility] HospitalIn the event this information is protected by the Federal Confidentiality of Alcohol and Drug Abuse Patient Records regulations: The Federal rules restrict any use of the information to criminally investigate or prosecute any alcohol or drug abuse patient.[facility] HospitalIn the event this information is protected by the Federal Confidentiality of Alcohol and Drug Abuse Patient Records regulations: The Federal rules restrict any use of the information to criminally investigate or prosecute any alcohol or drug abuse patient.[facility] HospitalIn the event this information is protected by the Federal Confidentiality of Alcohol and Drug Abuse Patient Records regulations: The Federal rules restrict any use of the information to criminally investigate or prosecute any alcohol or drug abuse patient.[facility] HospitalIn the event this information is protected by the Federal Confidentiality of Alcohol and Drug Abuse Patient Records regulations: The Federal rules restrict any use of the information to criminally investigate or prosecute any alcohol or drug abuse patient.[facility] HospitalIn the event this information is protected by the Federal Confidentiality of Alcohol and Drug Abuse Patient Records regulations: The Federal rules restrict any use of the information to criminally investigate or prosecute any alcohol or drug abuse patient.[facility] HospitalIn the event this information is protected by the Federal Confidentiality of Alcohol and Drug Abuse Patient Records regulations: The Federal rules restrict any use of the information to criminally investigate or prosecute any alcohol or drug abuse patient.[facility] HospitalIn the event this information is protected by the Federal Confidentiality of Alcohol and Drug Abuse Patient Records regulations: The Federal rules restrict any use of the information to criminally investigate or prosecute any alcohol or drug abuse patient.[facility] HospitalIn the event this information is protected by the Federal Confidentiality of Alcohol and Drug Abuse Patient Records regulations: The Federal rules restrict any use of the information to criminally investigate or prosecute any alcohol or drug abuse patient.[facility] HospitalIn the event this information is protected by the Federal Confidentiality of Alcohol and Drug Abuse Patient Records regulations: The Federal rules restrict any use of the information to criminally investigate or prosecute any alcohol or drug abuse patient.[facility] HospitalIn the event this information is protected by the Federal Confidentiality of Alcohol and Drug Abuse Patient Records regulations: The Federal rules restrict any use of the information to criminally investigate or prosecute any alcohol or drug abuse patient.[facility] HospitalIn the event this information is protected by the Federal Confidentiality of Alcohol and Drug Abuse Patient Records regulations: The Federal rules restrict any use of the information to criminally investigate or prosecute any alcohol or drug abuse patient.[facility] HospitalIn the event this information is protected by the Federal Confidentiality of Alcohol and Drug Abuse Patient Records regulations: The Federal rules restrict any use of the information to criminally investigate or prosecute any alcohol or drug abuse patient.[facility] HospitalIn the event this information is protected by the Federal Confidentiality of Alcohol and Drug Abuse Patient Records regulations: The Federal rules restrict any use of the information to criminally investigate or prosecute any alcohol or drug abuse patient.[facility] Reason for Visit (unrecogniz ed section and content) Reason Comments Occupational Therapy OT Progress Note Specialty Diagnoses / Procedures Referred By Shiraz t Referred To Contact OCCUPATIONAL THERAPY Diagnoses Blindness right eye category 3, blindness left eye category 4 Procedures CONSULT TO FOOD BEVERAGE SUPERVISOR OCCUPATIONAL THERAPY EVAL HIGH COMPLEX 60 MINS Wolf Fox, OD [address] [place] [address] Parish Perez OT/L Referral ID Status Reason Start Date Expiration Date Visits Requested Visits Authorized [id number] Authorized Auto-Generat ed Referral 09/02/2022 09/01/2023 20 [...] BMTRY PRTL COHER INTRFRMTRY IO LENS PWR ADINA PHACOEMULSIFICATION CATARACT IMPLANT INTRAOCULAR LENS W/O ENDOSCOPIC CYCLOPHOTOCOAGULATION REPAIR W/SUTURE IRIS AND CILIARY BODY [facility] [address] [facility] [address] [place] [address] Referral ID Status Reason Start Date Expiration Date Visits Re quested Visits Authorized [id number] 1 1 Reason Comments Post-op (Ophthalmology) Right Eye CE/IOL right eye 06/25/22 Reason Comments General Supervisor - Other Reason Comments Cough Reason Comments [...] MINUTES NEW RS OT LOW VISION Wolf Fox, OD [address] [facility] [address] [place] [address] Parish Perez, OT/L Referral ID Status Reason Start Date Expiration Date Visits Re quested Visits Authorized [id number] Closed 09/19/2022 12/18/2022 1 1 Reason Comments [...] wtih Dr. Eugene) Procedures EST ADULT Self Shani Ramos MD [address] [place] [address] Referral ID Status Reason Start Date Expiration Date Visits Re quested Visits Authorized [id number] Closed 09/25/2022 12/24/2022 1 1 Reason Comments Physical preop clearance for surgeries on 11/07/22, 11/15/22 Reason Comments Occupational Therapy Reason Comments Established Patient Pain Specialty Diagnoses / Procedures Referred By Contact Referred To Contact [facility] Diagnoses Hand pain Procedures HAND PAIN Self [facility] [address] [place] [address] Referral ID Status Reason Start Date Expiration Date V isits Requested Visits Authorized [id number] Closed OON/Self Pay Override 09/11/2022 09/01/2023 1 [...] REAL TIME WITH IMAGE LIMITED Destiney Pendleton APRN.NREMT [address] [place] [address] [facility] [address] [place] [address] Referral ID Status Reason Start Date Expiration Date V isits Requested Visits Authorized [id number] Closed Auto-Generate d Referral 09/28/2022 10/28/2023 1 1 Specialty Diagnoses / Procedures Referred By Contac t Referred To Contact [facility] Diagnoses Encounter for screening mammogram for high-risk patient Procedures mamograms screening Pennie Davis MD [address] [place] [address] [facility] [address] [place] [address] Referral ID Status Reason Start Date Expiration Date V isits Requested Visits Authorized [id number] Closed OON/Self Pay Override 09/11/2022 09/01/2023 1 1 Reason Onset Date Comments Refill Request 07/23/2023 Reason Comments Glaucoma Follow Up 6 month HVF 24-2 OU & MAC OCT Reason Onset Date Comments Population Health Navigation Outreach 10/04/2023 [facility] Gaps Reason Onset Date Comments Population Health Navigation Outreach 10/25/2023 [facility] AWV Reason Onset Date Comments Refill Request [...] Reason Comments Letter Reason Onset Date Comments [facility] Navigation Outreach 05/29/2024 Med adherence Reason Comments F/U 6 months needs some home heal th care due to vision loss Reason Onset Date Comments [facility] Navigation Outreach 06/12/2024 Bradly Hernandez - [place] [facility] Reason Onset Date Comments [facility] Outreach 06/15/2024 Med Adherence Reason Comments Patient Question Reason Onset Date Comments Refill Request 06/29/2024 Reason Comments Headache TINOCO, bodyaches, fatig ue x 3 days Reason Comments Orders Reason Comments Fax Request Reason Comments Results Reason Onset Date Comments [facility] Outreach 08/10/2024 Bradly Hollowaydomingasalo - [place] [facility] Reason Onset Date Comments Refill Request [...] Reason Comments Recheck 10/31/24 UA done at [facility], always tired Reason Comments Recheck [...] 4/> ADDL BRIDGET ATTND POLYSOMNOGRAM Kimberley Ambrocio, WIRED MUSIC OPERATOR.NREMT [address] [place] [address] Phone: tel: fax: [facility] [address] [place] [address] Phone: tel: fax: Referral ID Status Reason Start Date Expiration Date Visits Re quested Visits Authorized [id number] Closed 11/04/2024 09/01/2025 1 1 Reason Comments [...] Care Teams (unrecognized sec tion and content) Poultry Tender Relationship Specialty Start Date End Date Pennie Davis MD [address] [place] [address] PCP - General Internal Medicine 12/07/14 Poultry Tender Relationship Specialty Start Date End Date Pennie Davis MD [address] [place] [address] PCP - General Internal Medicine 12/07/14 Poultry Tender Relationship Specialty Start Date End Date Pennie Davis MD [address] [place] [address] PCP - General Internal Medicine 12/07/14 Poultry Tender Relationship Specialty Start Date End Date Pennie Davis MD [address] [place] [address] PCP - General Internal Medicine 12/07/14 Poultry Tender Relationship Specialty Start Date End Date Pennie Davis MD [address] [place] [address] PCP - General Internal Medicine 12/07/14 Poultry Tender Relationship Specialty Start Date End Date Pennie Davis MD [address] [place] [address] PCP - General Internal Medicine 12/07/14 Poultry Tender Relationship Specialty Start Date End Date Pennie Davis MD [address] [place] [address] PCP - General Internal Medicine 12/07/14 Poultry Tender Relationship Specialty Start Date End Date Pennie Davis MD [address] [place] [address] PCP - General Internal Medicine 12/07/14 Poultry Tender Relationship Specialty Start Date End Date Pennie Davis MD [address] [place] [address] PCP - General Internal Medicine 12/07/14 Poultry Tender Relationship Specialty Start Date End Date Pennie Davis MD [address] [place] [address] PCP - General Internal Medicine 12/07/14 Poultry Tender Relationship Specialty Start Date End Date Pennie Davis MD [address] [place] [address] PCP - General Internal Medicine 12/07/14 Poultry Tender Relationship Specialty Start Date End Date Pennie Davis MD [address] [place] [address] PCP - General Internal Medicine 12/07/14 Poultry Tender Relationship Specialty Start Date End Date Pennie Davis MD [address] [place] [address] PCP - General Internal Medicine 12/07/14 Poultry Tender Relationship Specialty Start Date End Date Pennie Davis MD [address] [place] [address] PCP - General Internal Medicine 12/07/14 Poultry Tender Relationship Specialty Start Date End Date Pennie Davis MD [address] [place] [address] PCP - General Internal Medicine 12/07/14 Poultry Tender Relationship Specialty Start Date End Date Pennie Davis MD [address] [place] [address] PCP - General Internal Medicine 12/07/14 Poultry Tender Relationship Specialty Start Date End Date Pennie Davis MD [address] [place] [address] PCP - General Internal Medicine 12/07/14 Poultry Tender Relationship Specialty Start Date End Date Pennie Davis MD [address] [place] [address] PCP - General Internal Medicine 12/07/14 Poultry Tender Relationship Specialty Start Date End Date Pennie Davis MD [address] [place] [address] PCP - General Internal Medicine 12/07/14 Poultry Tender Relationship Specialty Start Date End Date Pennie Davis MD [address] [place] [address] PCP - General Internal Medicine 12/07/14 Poultry Tender Relationship Specialty Start Date End Date Pennie Davis MD [address] [place] [address] PCP - General Internal Medicine 12/07/14 Poultry Tender Relationship Specialty Start Date End Date Pennie Davis MD [address] [place] [address] PCP - General Internal Medicine 12/07/14 Poultry Tender Relationship Specialty Start Date End Date Pennie Davis MD [address] [place] [address] PCP - General Internal Medicine 12/07/14 Poultry Tender Relationship Specialty Start Date End Date Pennie Davis MD [address] [place] [address] PCP - General Internal Medicine 12/07/14 Poultry Tender Relationship Specialty Start Date End Date Pennie Davis MD [address] [place] [address] PCP - General Internal Medicine 12/07/14 Poultry Tender Relationship Specialty Start Date End Date Pennie Davis MD [address] [place] [address] PCP - General Internal Medicine 12/07/14 Poultry Tender Relationship Specialty Start Date End Date Pennie Davis MD [address] [place] [address] PCP - General Internal Medicine 12/07/14 Poultry Tender Relationship Specialty Start Date End Date Pennie Dvais MD [address] [place] [address] PCP - General Internal Medicine 12/07/14 Poultry Tender Relationship Specialty Start Date End Date Pennie Davis MD [address] [place] [address] PCP - General Internal Medicine 12/07/14 Poultry Tender Relationship Specialty Start Date End Date Pennie Davis MD [address] [place] [address] PCP - General Internal Medicine 12/07/14 Poultry Tender Relationship Specialty Start Date End Date Pennie Davis MD [address] [place] [address] PCP - General Internal Medicine 12/07/14 Poultry Tender Relationship Specialty Start Date End Date Pennie Davis MD [address] [place] [address] PCP - General Internal Medicine 12/07/14 Poultry Tender Relationship Specialty Start Date End Date Pennie Davis MD [address] [place] [address] PCP - General Internal Medicine 12/07/14 Poultry Tender Relationship Specialty Start Date End Date Pennie Davis MD [address] [place] [address] PCP - General Internal Medicine 12/07/14 Poultry Tender Relationship Specialty Start Date End Date Pennie Davis MD [address] [place] [address] PCP - General Internal Medicine 12/07/14 Poultry Tender Relationship Specialty Start Date End Date Pennie Davis MD [address] [place] [address] PCP - General Internal Medicine 12/07/14 Team Status: Active Member Role Status Dates Dr. Pennie Davis MD Family Provider Active Dr. Pennie Davis MD Primary Care Provider Active Team Status: Inactive Member Role Status Dates Dr. Pennie Davis MD Primary Care Provider Active CAREY VALLE Attending Provider, Referring Provide r Active Poultry Tender Relationship Specialty Start Date End Date Pennie Davis MD [address] [place] [address] PCP - General Internal Medicine 12/07/14 Poultry Tender Relationship Specialty Start Date End Date Pennie Davis MD [address] [place] [address] PCP - General Internal Medicine 12/07/14 Poultry Tender Relationship Specialty Start Date End Date Pennie Davis MD [address] [place] [address] PCP - General Internal Medicine 12/07/14 Poultry Tender Relationship Specialty Start Date End Date Pennie Davis MD [address] [place] [address] PCP - General Internal Medicine 12/07/14 Poultry Tender Relationship Specialty Start Date End Date Pennie Davis MD [address] [place] [address] PCP - General Internal Medicine 12/07/14 Poultry Tender Relationship Specialty Start Date End Date Pennie Davis MD [address] [place] [address] PCP - General Internal Medicine 12/07/14 Poultry Tender Relationship Specialty Start Date End Date Pennie Davis MD [address] [place] [address] PCP - General Internal Medicine 12/07/14 Poultry Tender Relationship Specialty Start Date End Date Pennie Davis MD [address] [place] [address] PCP - General Internal Medicine 12/07/14 Poultry Tender Relationship Specialty Start Date End Date Pennie Davis MD [address] [place] [address] PCP - General Internal Medicine 12/07/14 Poultry Tender Relationship Specialty Start Date End Date Pennie Davis MD [address] [place] [address] PCP - General Internal Medicine 12/07/14 Poultry Tender Relationship Specialty Start Date End Date Pennie Davis MD [address] [place] [address] PCP - General Internal Medicine 12/07/14 Poultry Tender Relationship Specialty Start Date End Date Pennie Davis MD [address] [place] [address] PCP - General Internal Medicine 12/07/14 Poultry Tender Relationship Specialty Start Date End Date Pennie Davis MD [address] [place] [address] PCP - General Internal Medicine 12/07/14 Poultry Tender Relationship Specialty Start Date End Date Pennie Davis MD [address] [place] [address] PCP - General Internal Medicine 12/07/14 Team Status: Inactive Member Role Status Dates Dr. Pennie Davis MD Primary Care Provider, Referring Provider Active Dr. Phillip Pozo DO Attending Provider Active Team Status: Inactive Member Role Status Dates Dr. Pennie Davis MD Primary Care Provider Active Dr. Edgar Beltran MD Attending Provider Active Team Status: Inactive Member Role Status Dates Dr. Pennie Davis MD Primary Care Provider Active Dr. Phillip Pozo DO Attending Provider, Referring Provider Active Poultry Tender Relationship Specialty Start Date End Date Pennie Davis MD [address] [place] [address] PCP - General Internal Medicine 12/07/14 Poultry Tender Relationship Specialty Start Date End Date Pennie Davis MD [address] [place], [place] [address] PCP - General Internal Medicine 12/07/14 Poultry Tender Relationship Specialty Start Date End Date Pennie Davis MD [address] [place] [address] PCP - General Internal Medicine 12/07/14 Poultry Tender Relationship Specialty Start Date End Date Pennie Davis MD [address] [place] [address] PCP - General Internal Medicine 12/07/14 Poultry Tender Relationship Specialty Start Date End Date Pennie Davis MD [address] [place] [address] PCP - General Internal Medicine 12/07/14 Poultry Tender Relationship Specialty Start Date End Date Pennie Davis MD [address] [place] [address] PCP - General Internal Medicine 12/07/14 Poultry Tender Relationship Specialty Start Date End Date Pennie Davis MD [address] [place] [address] PCP - General Internal Medicine 12/07/14 Poultry Tender Relationship Specialty Start Date End Date Pennie Davis MD [address] [place] [address] PCP - General Internal Medicine 12/07/14 Poultry Tender Relationship Specialty Start Date End Date Pennie Davis MD [address] [place] [address] PCP - General Internal Medicine 12/07/14 Poultry Tender Relationship Specialty Start Date End Date Pennie Davis MD [address] [place] [address] PCP - General Internal Medicine 12/07/14 Poultry Tender Relationship Specialty Start Date End Date Pennie Davis MD [address] [place] [address] PCP - General Internal Medicine 12/07/14 Poultry Tender Relationship Specialty Start Date End Date Pennie Davis MD [address] [place], [place] [address] PCP - General Internal Medicine 12/07/14 Poultry Tender Relationship Specialty Start Date End Date Pennie Davis MD [address] [place], [place] [address] PCP - General Internal Medicine 12/07/14 Poultry Tender Relationship Specialty Start Date End Date Pennie Davis MD [address] [place] [address] PCP - General Internal Medicine 12/07/14 Poultry Tender Relationship Specialty Start Date End Date Pennie Davis MD [address] [place] [address] PCP - General Internal Medicine 12/07/14 Poultry Tender Relationship Specialty Start Date End Date Pennie Davis MD [address] [place] [address] PCP - General Internal Medicine 12/07/14 Virginia Avalos PA-C [address] [place] [address] [facility] 08/09/24 Luiza Anna APRN.CNP [address] [place] [address] [facility] 08/09/24 Domitila Knapp PA-C [address] [place] [address] [facility] 08/09/24 Poultry Tender Relationship Specialty Start Date End Date Pennie Davis MD [address] [place] [address] PCP - General Internal Medicine 12/07/14 Virginia Avalos PA-C [address] [place] [address] [facility] 08/09/24 Luiza Anna, MURTAZA.NREMT [address] [place] [address] R[facility] 08/09/24 Domitila Knapp PA-C [address] [place] [address] [facility] 08/09/24 Poultry Tender Relationship Specialty Start Date End Date Pennie Davis MD [address] [place] [address] PCP - General Internal Medicine 12/07/14 iVrginia Avalos PA-C [address] [place] [address] [facility] 08/09/24 Luiza Anna, WIRED MUSIC OPERATOR.NREMT [address] [facility] [place] [address] Rn [facility] 08/09/24 Domitila Knapp PA-C [address] [place] [address] [facility] 08/09/24 Poultry Tender Relationship Specialty Start Date End Date Pennie Davis MD [address] [place] [address] PCP - General Internal Medicine 12/07/14 Virginia Avalos PA-C [address] [place] [address] [facility] 08/09/24 Luiza Anna APRN.NREMT [address] [place] [address] [facility] 08/09/24 Domitila Knapp PA-C [address] [place] [address] [facility] 08/09/24 Poultry Tender Relationship Specialty Start Date End Date Pennie Davis MD [address] [place] [address] PCP - General Internal Medicine 12/07/14 Virginia Avalos PA-C [address] [place] [address] [facility]n [facility] 08/09/24 Luiza Anna APRN.NREMT [address] [place] [address] R[facility] 08/09/24 Domitila Knapp PA-C [address] [place] [address] [facility] 08/09/24 Poultry Tender Relationship Specialty Start Date End Date Pennie Davis MD [address] [place] [address] PCP - General Internal Medicine 12/07/14 Virginia Avalos PA-C [address] [place] [address] [facility]n [facility] [facility] 08/09/24 Luiza Anna APRN.NREMT [address] [facility] [place] [address] [facility]n [facility] 08/09/24 Domitila Knapp PA-C [address] [place] [address] [facility] 08/09/24 Poultry Tender Relationship Specialty Start Date End Date Pennie Davis MD [address] [place] [address] PCP - General Internal Medicine 12/07/14 Virginia Avalos PA-C [address] [place] [address] [facility] 08/09/24 Luiza Anna APRN.NREMT [address] [facility] [place] [address] [facility] 08/09/24 Domitila Knapp PA-C [address] [place] [address] [facility] Poultry Tender Relationship Specialty Start Date End Date Pennie Davis MD [address] [place] [address] PCP - General Internal Medicine 12/07/14 Virginia Avalos PA-C [address] [place] [address] [facility] 08/09/24 Luiza Anna APRN.NREMT [address] [place] [address] [facility] 08/09/24 Domitila Knapp PA-C [address] [place] [address] [facility] 08/09/24 Poultry Tender Relationship Specialty Start Date End Date Pennie Davis MD [address] [place] [address] PCP - General Internal Medicine 12/07/14 Virginia Avalos PA-C [address] [place] [address] [facility] 08/09/24 Luiza Anna APRN.NREMT [address] [place] [address] [facility] 08/09/24 Domitila Knapp PA-C [address] [place] [address] [facility] 08/09/24 Poultry Tender Relationship Specialty Start Date End Date Pennie Davis MD [address] [place] [address] PCP - General Internal Medicine 12/07/14 Virginia Avalos PA-C [address] [place] [address] [facility] 08/09/24 Luiza Anna APRN.NREMT [address] [place] [address] [facility] 08/09/24 Domiitla Knapp PA-C [address] [place] [address] [facility] 08/09/24 Poultry Tender Relationship Specialty Start Date End Date Pennie Davis MD [address] [place] [address] PCP - General Internal Medicine 12/07/14 Virginia Avalos PA-C [address] [place] [address] [facility] 08/09/24 Luiza Anna APRN.NREMT [address] [place] [address] [facility] 08/09/24 Domitila Knapp PA-C [address] [place] [address] [facility]/09/[facility] Poultry Tender Relationship Specialty Start Date End Date ePnnie Davis MD [address] [place] [address] PCP - General Internal Medicine 12/07/14 Virginia Avalos PA-C [address] [place] [address] [facility] 08/09/24 Luiza Anna APRN.NREMT [address] [place] [address] [facility] 08/09/24 Domitila Knapp PA-C [address] [place], [place] 244[address] [facility] 08/09/24 Poultry Tender Relationship Specialty Start Date End Date Pennie Davis MD [address] [place], [place] [address] PCP - General Internal Medicine 12/07/14 Virginia Avalos PA-C [address] [place] [address] [facility] 08/09/24 Luiza Anna APRN.CNP [address] [place] [address] [facility] Internal [facility] 08/09/24 Domitila Knapp PA-C [address] [place], [place] [address] [facility] 08/09/24 Team Status: Inactive Member Role Status Dates Dr. Pennie Davis MD Primary Care Provider Active Start: November 24, 2024 End: November 24, 2024 Dr. Edgar Beltran MD Attending Provider Active S tart: November 24, 2024 End: November 24, 2024 Team Status: Inactive Member Role Status Dates Dr. Pennie Davis MD Primary Care Provider Active Start: November 24, 2024 End: November 24, 2024 DIAGNOSTIC CARDIAC SONOGRAPHERJermaine Prakash Attending Provider Active Star t: November 24, 2024 End: November 24, 2024 DIAGNOSTIC CARDIAC SONOGRAPHER. Sona Prakash Referring Provider Active Star t: November 24, 2024 End: November 24, 2024 Poultry Tender Relationship Specialty Start Date End Date Pennie Davis MD [address] [place] [address] PCP - General Internal Medicine 12/07/14 Luiza Anna APRN.NREMT [address] [place] [address] [facility] 08/09/24 Poultry Tender Relationship Specialty Start Date End Date Pennie Davis MD [address] [place] [address] PCP - General Internal Medicine 12/07/14 Luiza Anna APRN.NREMT [address] [place] [address] [facility] 08/09/24 Poultry Tender Relationship Specialty Start Date End Date Pennie Davis MD [address] [place] [address] PCP - General Internal Medicine 12/07/14 Luiza Anna APRN.NREMT [address] [place] [address] [facility] 08/09/24 Poultry Tender Relationship Specialty Start Date End Date Pennie Davis MD [address] [place] [address] PCP - General Internal Medicine 12/07/14 Virginia Avalos PA-C [address] [place] [address] [facility] 08/09/24 11/22/24 Luiza Anna APRN.NREMT [address] [place] [address] [facility] 08/09/24 Domitila Knapp PA-C [address] [place] [address] [facility] 08/09/24 11/22/24 Poultry Tender Relationship Specialty Start Date End Date Pennie Davis MD [address] [place] [address] PCP - General Internal Medicine 12/07/14 Luiza Anna APRN.NREMT [address] [place] [address] Rn [facility] 08/09/24 Poultry Tender Relationship Specialty Start Date End Date Pennie Davis MD [address] [place] [address] PCP - General Internal Medicine 12/07/14 Luiza Anna APRN.NREMT [address] [facility] [address] [facility] 08/09/24 Poultry Tender Relationship Specialty Start Date End Date Pennie Davis MD [address] [place] [address] PCP - General Internal Medicine 12/07/14 Luiza Anna APRN.NREMT [address] [facility] [address] [facility] 08/09/24 Poultry Tender Relationship Specialty Start Date End Date Pennie Davis MD [address] [place] [address] PCP - General Internal Medicine 12/07/14 Virginia Avalos PA-C [address] [place] [address] Rn [facility] 08/09/24 11/22/24 Luiza Anna APRN.NREMT [address] [place], [place] [address]6731 [facility] 08/09/24 Domitila Knapp PA-C [address] [place], [place] [address] [facility] 08/09/24 11/22/24 Poultry Tender Relationship Specialty Start Date End Date Pennie Davis MD [address] [place], [place] [address] PCP - General Internal Medicine 12/07/14 Luiza Anna APRN.NREMT [address] [place], [place] [address]165[address] [facility] 08/09/24 Team Status: Active Member Role/Relationship Status Dates Dr. Pennie Davis MD Family Provider Active Dr. Pennie Davis MD Primary Care Provider Active Team Status: Inactive Member Role/Relationship Status Dates Dr. Pennie Davis MD Primary Care Provider Active Start: November 24, 2024 End: November 24, 2024 Dr. Edgar Beltran MD Attending Provider Active S tart: November 24, 2024 End: November 24, 2024 Team Status: Inactive Member Role/Relationship Status Dates Dr. Pennie Davis MD Primary Care Provider Active Start: November 24, 2024 End: November 24, 2024 NP. Sona Prakash Attending Provider Active Star t: November 24, 2024 End: November 24, 2024 DIAGNOSTIC CARDIAC SONOGRAPHERJermaine Prakash Referring Provider Active Star t: November 24, 2024 End: November 24, 2024 Team Status: Inactive Member Role/Relationship Status Dates Dr. Pennie Davis MD Primary Care Provider Active Start: December 09, 2024 End: December 09, 2024 Dr. Pennie Davis MD Referring Provider Active Start: December 09, 2024 End: December 09, 2024 Dr. Phillip Pozo DO Attending Provider Active Start: December 09, 2024 End: December 09, 2024 Team Status: Active Member Role/Relationship Status Dates Dr. Pennie Davis MD Primary Care Provider Active Start: March 10, 2025 Dr. Pennie Davis MD Referring Provider Active Start: March 10, 2025 Dr. Phillip Pozo DO Attending Provider Active Start: March 10, 2025 Team Status: Inactive Member Role/Relationship Status Dates Dr. Pennie Davis MD Primary Care Provider Active Start: March 10, 2025 End: March 10, 2025 Dr. Edgar Beltran MD Attending Provider Active S tart: March 10, 2025 End: March 10, 2025 Team Status: Inactive Member Role/Relationship Status Dates Dr. Pennie Davis MD Primary Care Provider Active Start: March 10, 2025 End: March 10, 2025 Dr. Pennie Davis MD Referring Provider Active Start: March 10, 2025 End: March 10, 2025 Dr. Phillip Pozo DO Attending Provider Active Start: March 10, 2025 End: March 10, 2025 Poultry Tender Relationship Specialty Start Date End Date Pennie Davis MD [address] [place], [place] [id number] PCP - General Internal Medicine 12/07/14 Luiza Anna APRN.CNP [address] [place], [place] [id number] [facility] 08/09/24 Poultry Tender Relationship Specialty Start Date End Date Pennie Davis MD [address] [facility] [place], [place] [address] PCP - General Internal Medicine 12/07/14 Luiza Anna, WIRED MUSIC OPERATOR.NREMT [address] [facility] [place] [address] Rn [facility] 08/09/24 Poultry Tender Relationship Specialty Start Date End Date ePnnie Davis MD [address] [place] [address] PCP - General Internal Medicine 12/07/14 Luiza Anna WIRED MUSIC OPERATOR.NREMT [address] [facility] [place] [address] Rn [facility] 08/09/24 Poultry Tender Relationship Specialty Start Date End Date Pennie Davis MD [address] [place] [address] PCP - General Internal Medicine 12/07/14 Luiza Anna, WIRED MUSIC OPERATOR.NREMT [address] [facility] [place] [address] Rn [facility] 08/09/24 Poultry Tender Relationship Specialty Start Date End Date Pennie Davis MD [address] [place] [address] PCP - General Internal Medicine 12/07/14 Luiza Anna, WIRED MUSIC OPERATOR.NREMT [address] [facility] [place] [address] Rn [facility] 08/09/24 Poultry Tender Relationship Specialty Start Date End Date Pennie Davis MD [address] [place] [address] PCP - General Internal Medicine 12/07/14 Luiza Anna, WIRED MUSIC OPERATOR.NREMT [address] [place] [address] Rn [facility] 08/09/24 Poultry Tender Relationship Specialty Start Date End Date Pennie Davis MD [address] [place], [place] [address] PCP - General Internal Medicine 12/07/14 Luiza Anna APRN.NREMT [address] [place] [address] [facility] 08/09/24 Poultry Tender Relationship Specialty Start Date End Date Pennie Davis MD [address] [place] [address] PCP - General Internal Medicine 12/07/14 Virginia Avalos PA-C [address] [place] [id number] [facility] 08/09/24 11/22/24 Luiza Anna APRN.NREMT [address] [place] [address] [facility] 08/09/24 Domitila Knapp PA-C [address] [place] [address] [facility] 08/09/24 11/22/24 Poultry Tender Relationship Specialty Start Date End Date Pennie Davis MD [address] [place], [place] [address] PCP - General Internal Medicine 12/07/14 Virginia Avalos PA-C [address] [place] [address] [facility] 08/09/24 11/22/24 Older, LiuzaMURTAZA.NREMT [address] [place] [address] Rn [facility] 08/09/24 Domitila Knapp PA-C [address] [place] [address] Rn [facility] 08/09/24 11/22/24 Team Status: Inactive Member Role/Relationship Status Dates Dr. Pennie Davis MD Primary Care Provider Active Start: March 10, 2025 End: March 10, 2025 Dr. Pennie Davis MD Referring Provider Active Start: March 10, 2025 End: March 10, 2025 Dr. Phillip Pozo DO Attending Provider Active Start: March 10, 2025 End: March 10, 2025 Team Status: Inactive Member Role/Relationship Status Dates Dr. Pennie Davis MD Primary Care Provider Active Start: March 10, 2025 End: March 10, 2025 Dr. Edgar Beltran MD Attending Provider Active S tart: March 10, 2025 End: March 10, 2025 Team Status: Active Member Role/Relationship Status Dates Dr. Pennie Davis MD Primary Care Provider Active Start: April 16, 2025 Dr. Pennie Davis MD Referring Provider Active Start: April 16, 2025 Dr. Michael Cameron MD Attending Provider Active Start: April 16, 2025 Team Status: Inactive Member Role/Relationship Status Dates Dr. Pennie Davis MD Primary Care Provider Active Start: April 16, 2025 End: April 16, 2025 Dr. Edgar Beltran MD Attending Provider Active S tart: April 16, 2025 End: April 16, 2025 Team Status: Inactive Member Role/Relationship Status Dates Dr. Pennie Davis MD Primary Care Provider Active Start: April 16, 2025 End: April 16, 2025 Dr. Pennie Davis MD Referring Provider Active Start: April 16, 2025 End: April 16, 2025 Dr. Michael Cameron MD Attending Provider Active Start: April 16, 2025 End: April 16, 2025 Poultry Tender Relationship Specialty Start Date End Date Pennie Davis MD [address] [place] [address] PCP - General Internal Medicine 12/07/14 Luiza Anna, WIRED MUSIC OPERATOR.NREMT [address] [place] [address] [facility] 08/09/24 Poultry Tender Relationship Specialty Start Date End Date Pennie Davis MD [address] [place] [address] PCP - General Internal Medicine 12/07/14 Luiza Anna, WIRED MUSIC OPERATOR.NREMT [address] [facility] [place] [address] Rn [facility] 08/09/24 Poultry Tender Relationship Specialty Start Date End Date Pennie Davis MD [address] [place] [address] PCP - General Internal Medicine 12/07/14 Luiza Anna, WIRED MUSIC OPERATOR.NREMT [address] [place] [address] [facility]n [facility] 08/09/24 Team Status: Active Member Role/Relationship Status Dates Dr. Pennie Davis MD Primary care physician Active Team Status: Inactive Member Role/Relationship Status Dates Dr. Pennie Davis MD Primary care physician Active Start: March 10, 2025 End: March 10, 2025 Dr. Pennie Davis MD Referring Provider Active Start: March 10, 2025 End: March 10, 2025 Dr. Phillip Pozo DO Attending physician Active Start: March 10, 2025 End: March 10, 2025 Team Status: Inactive Member Role/Relationship Status Dates Dr. Pennie Davis MD Primary care physician Active Start: March 10, 2025 End: March 10, 2025 Dr. Edgar Beltran MD Attending physician Active Start: March 10, 2025 End: March 10, 2025 Team Status: Inactive Member Role/Relationship Status Dates Dr. Pennie Davis MD Primary care physician Active Start: April 16, 2025 End: April 16, 2025 Dr. Pennie Davis MD Referring Provider Active Start: April 16, 2025 End: April 16, 2025 Dr. Michael Cameron MD Attending physician Active Start: April 16, 2025 End: April 16, 2025 Team Status: Inactive Member Role/Relationship Status Dates Dr. Pennie Davis MD Primary care physician Active Start: April 16, 2025 End: April 16, 2025 Dr. Edgar Beltran MD Attending physician Active Start: April 16, 2025 End: April 16, 2025 Team Status: Inactive Member Role/Relationship Status Dates Dr. Pennie Davis MD Primary care physician Active Start: May 07, 2025 End: May 07, 2025 Dr. Michael Cameron MD Attending physician Active Start: May 07, 2025 End: May 07, 2025 Dr. Michael Cameron MD Referring Provider Active Start: May 07, 2025 End: May 07, 2025 Team Status: Inactive Member Role/Relationship Status Dates Dr. Pennie Davis MD Primary care physician Active Start: May 27, 2025 End: May 27, 2025 Dr. Juan Manuel Turpin MD Emergency Department Physician Active Start: May 27, 2025 End: May 27, 2025 Team Status: Inactive Member Role/Relationship Status Dates Dr. Pennie Davis MD Primary care physician Active Start: May 27, 2025 End: May 27, 2025 Dr. Juan Manuel Turpin MD Attending physician Active St art: May 27, 2025 End: May 27, 2025 Dr. Juan Manuel Turpin MD Emergency Department Physician Active Start: May 27, 2025 End: May 27, 2025 Team Status: Inactive Member Role/Relationship Status Dates Dr. Pennie Davis MD Primary care physician Active Start: June 03, 2025 End: June 03, 2025 Dr. Pennie Davis MD Referring Provider Active Start: June 03, 2025 End: June 03, 2025 Dr. Michael Cameron MD Attending physician Active Start: June 03, 2025 End: June 03, 2025 Team Status: Inactive Member Role/Relationship Status Dates Dr. Pennie Davis MD Primary care physician Active Start: June 04, 2025 End: June 04, 2025 Dr. Pennie Davis MD Referring Provider Active Start: June 04, 2025 End: June 04, 2025 Dr. Phillip Pozo DO Attending physician Active Start: June 04, 2025 End: June 04, 2025 Team Status: Inactive Member Role/Relationship Status Dates Dr. Pennie Davis MD Primary care physician Active Start: June 04, 2025 End: June 04, 2025 Dr. Edgar Beltran MD Attending physician Active Start: June 04, 2025 End: June 04, 2025 Team Status: Active Member Role/Relationship Status Dates Dr. Pennie Davis MD Primary care physician Active Start: June 17, 2025 Dr. Edgar Beltran MD Attending physician Active Start: June 17, 2025 Dr. Phillip Pozo DO Referring Provider Active Start: June 17, 2025 Team Status: Inactive Member Role/Relationship Status Dates Dr. Pennie Davis MD Primary care physician Active Start: June 17, 2025 End: June 17, 2025 Dr. Patti Piña DO Attending physician Active Start: June 17, 2025 End: June 17, 2025 Dr. Patti Piña DO Emergency Department Physician Ac tive Start: June 17, 2025 End: June 17, 2025 Team Status: Active Member Role/Relationship Status Dates Dr. Pennie Davis MD Primary care physician Active Start: June 21, 2025 Dr. Phillip Pozo DO Attending physician Active Start: June 21, 2025 Dr. Phillip Pozo DO Referring Provider Active Start: June 21, 2025 Team Status: Inactive Member Role/Relationship Status Dates Dr. Pennie Davis MD Primary care physician Active Start: June 23, 2025 End: June 23, 2025 Dr. Geovanni Sorto DO Emergency Department Physician Active Start: June 23, 2025 End: June 23, 2025 Team Status: Inactive Member Role/Relationship Status Dates Dr. Pennie Davis MD Primary care physician Active Start: June 29, 2025 End: June 29, 2025 Dr. Renato Hanley DO Emergency Department Physician A ctive Start: June 29, 2025 End: June 29, 2025 Team Status: Inactive Member Role/Relationship Status Dates Dr. Pennie Davis MD Primary care physician Active Start: April 16, 2025 End: April 16, 2025 Dr. Pennie Davis MD Referring Provider Active Start: April 16, 2025 End: April 16, 2025 Dr. Michael Cameron MD Attending physician Active Start: April 16, 2025 End: April 16, 2025 Team Status: Inactive Member Role/Relationship Status Dates Dr. Pennie Davis MD Primary care physician Active Start: April 16, 2025 End: April 16, 2025 Dr. Edgar Beltran MD Attending physician Active Start: April 16, 2025 End: April 16, 2025 Team Status: Inactive Member Role/Relationship Status Dates Dr. Pennie Davis MD Primary care physician Active Start: May 07, 2025 End: May 07, 2025 Dr. Michael Cameron MD Attending physician Active Start: May 07, 2025 End: May 07, 2025 Dr. Michael Cameron MD Referring Provider Active Start: May 07, 2025 End: May 07, 2025 Team Status: Inactive Member Role/Relationship Status Dates Dr. Pennie Davis MD Primary care physician Active Start: May 27, 2025 End: May 27, 2025 Dr. Juan Manuel Turpin MD Attending physician Active St art: May 27, 2025 End: May 27, 2025 Dr. Juan Manuel Turpin MD Emergency Department Physician Active Start: May 27, 2025 End: May 27, 2025 Team Status: Inactive Member Role/Relationship Status Dates Dr. Pennie Davis MD Primary care physician Active Start: June 03, 2025 End: June 03, 2025 Dr. Pennie Davis MD Referring Provider Active Start: June 03, 2025 End: June 03, 2025 Dr. Michael Cameron MD Attending physician Active Start: June 03, 2025 End: June 03, 2025 Team Status: Inactive Member Role/Relationship Status Dates Dr. Pennie Davis MD Primary care physician Active Start: June 04, 2025 End: June 04, 2025 Dr. Pennie Davis MD Referring Provider Active Start: June 04, 2025 End: June 04, 2025 Dr. Phillip Pozo DO Attending physician Active Start: June 04, 2025 End: June 04, 2025 Team Status: Inactive Member Role/Relationship Status Dates Dr. Pennie Davis MD Primary care physician Active Start: June 04, 2025 End: June 04, 2025 Dr. Edgar Beltran MD Attending physician Active Start: June 04, 2025 End: June 04, 2025 Team Status: Active Member Role/Relationship Status Dates Dr. Pennie Davis MD Primary care physician Active Start: June 17, 2025 Dr. Edgar Beltran MD Attending physician Active Start: June 17, 2025 Dr. Phillip Pozo DO Referring Provider Active Start: June 17, 2025 Team Status: Inactive Member Role/Relationship Status Dates Dr. Pennie Davis MD Primary care physician Active Start: June 17, 2025 End: June 17, 2025 Dr. Patti Piña DO Attending physician Active Start: June 17, 2025 End: June 17, 2025 Dr. Patti Piña DO Emergency Department Physician Ac tive Start: June 17, 2025 End: June 17, 2025 Team Status: Inactive Member Role/Relationship Status Dates Dr. Pennie Davis MD Primary care physician Active Start: June 21, 2025 End: June 21, 2025 Dr. Phillip Pozo DO Attending physician Active Start: June 21, 2025 End: June 21, 2025 Dr. Phillip Pozo DO Referring Provider Active Start: June 21, 2025 End: June 21, 2025 Team Status: Inactive Member Role/Relationship Status Dates Dr. Pennie Davis MD Primary care physician Active Start: June 23, 2025 End: June 23, 2025 Dr. Geovanni Sorto DO Attending physician Active Start: June 23, 2025 End: June 23, 2025 Dr. Geovanni Sorto DO Emergency Department Physician Active Start: June 23, 2025 End: June 23, 2025 Team Status: Inactive Member Role/Relationship Status Dates Dr. Pennie Davis MD Primary care physician Active Start: June 29, 2025 End: June 29, 2025 Dr. Renato Hanley DO Attending physician Active Start: June 29, 2025 End: June 29, 2025 Dr. Renato Hanley DO Emergency Department Physician A ctive Start: June 29, 2025 End: June 29, 2025 Team Status: Inactive Member Role/Relationship Status Dates Dr. Pennie Davis MD Primary care physician Active Start: [...] Only, Preprocedure 0934 (Given - Provid er: Sona Cardoso RN)0937 (Given - Provider: Sona Cardoso RN)0940 (Given - Provider: Sona Cardoso RN) sodium chloride 0.9 % (flush) 2-10 mL (BD POSIFLUSH) (CANCELED) 2-10 mL, INTRAVENOUS, EVERY 12 HOURS, First dose on Sat06/25/22 at 0930, Until Discontinued, Preprocedure 0934 (Given - Provid er: Sona Cardoso RN) PRN Medication Order 06/23/2022 06/24/2022 [...] (Given - Provid er: Jonathon Eugene MD) mcfnpyxf-zkffwtonh-[id number] 3.5 mg/g-10,000 unit/g-0.1 % (POLYDEX) X (OR/PROCEDURE) PRN, Starting on Sat06/25/22 at 1128, Until Tu06/26/22 at 0303, Intraprocedure 1128 (Given - Provid [...] section and content) DATE CREATED AUTHOR 11/01/2022 [facility] DATE CREATED AUTHOR AUTHOR'S ORGANIZ ATION 11/09/2022 [facility] DATE CREATED AUTHOR AUTHOR'S ORGANIZ ATION 01/08/2025 [facility] DATE CREATED AUTHOR AUTHOR'S ORGANIZ ATION 07/12/2025 [facility] DATE CREATED AUTHOR AUTHOR'S ORGANIZ ATION 07/14/2025 [facility] Goals (unrecognized section and content) Goals [...] BE BASED ON THE PRIMARY CLINICAL RECORDS. [employer] [facility]. provides no warranty or guarantee of the accuracy or completeness of information in this document.
[2025-08-07 14:37] VITALS: BMI 28.0
--- NOTE | 2025-08-07 15:47 | CM.ED ---
Social Work Date of referral: 08/07/25 Reason for referral: Request for assistance with discharge planning/Advanced Care Directives (ACD's) not on file and resources needed. Referred by: ED physician. Patient provided consent for Social Work visit. Patient lives at home alone with her 2 cats which patient stated she can't be away from for very long. Patient stated she's legally blind in both eyes and is not able to drive but has two primary friends that assist with taking patient to and from her appointments and also assists with running errands when needed. Patient stated she sustained a head injury in January and has terrible and frequent headaches since then that have been reoccurring. 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 Patient has a cane, a standard walker and is working on obtaining a light-weight power scooter to make ambulating easier. Patient stated she has been resources for [facility], with whom she plans to get connected with for assistance with home delivered meals and a home health aid. Patient stated she has two emergency response devices through [employer]; one for inside her house and one for when out in the community. Patient has 3 sons, emily of Dawn who was noted to have substantial medical conditions with his heart and liver, one son in [place] and one in [place]. Patient is established with Dr. Mustafa through [facility] and has her first appointment this month with a pain specialist. Patient stated she can't remember who it is but stated she can look it up on her My Chart. Sample Card Maker provided education about managing pain through the pain specialist which should reduce the need for frequent ED visits. Patient is also connected with [facility] and had a recent sleep study. Patient stated she tries to remain active in the community and volunteers most weeks once a week with [employer]. Patient has a shower chair that she can use when needed. Patient stated sometimes, she has a hard time keeping it all together and organized. Sample Card Maker talked with patient about the [facility] and how they have Care Managers who can help patient with keeping everything together, getting organized with appointments, transportation if needed, fill out applications and/or make phone calls and access any other DME or community resources as needed which patient accepted and expressed appreciation for. Patient stated she feels safe being discharged home and denied the need for any other help at this time. Mary Anand ELEVATING GRADER OPERATOR, DIGITAL STRATEGY MANAGER
[2025-08-07 16:01] VITALS: BP 89/48; PULSE 73; RESP 16; O2SAT 93
[2025-08-07 16:02] VITALS: BP 89/48; PULSE 73; RESP 16; TEMP 36.4; O2SAT 93
== END 2025-08-07 16:35 | disposition home or self-care (01) ==
PROVIDERS: Emergency Provider Emergency Medicine; PCP Internal Medicine; Visit Provider Emergency Medicine
DX: R51.9 Headache, unspecified (principal); M25.552 Pain in left hip; H54.8 Legal blindness, as defined in USA; E78.00 Pure hypercholesterolemia, unspecified; I10 Essential (primary) hypertension; M54.2 Cervicalgia; Z79.899 Other long term (current) drug therapy; K21.9 Gastro-esophageal reflux disease without esophagitis; Z79.82 Long term (current) use of aspirin
CPT/HCPCS: 96374; 96375; 99284; A4216; J2405

== ENCOUNTER 2025-08-22 16:14 | Emergency (ER) | payer MEDICARE, MEDICAID, SELFPAY ==
[2025-08-22] VITALS (7 sets, daily range): BP systolic 99–148; BP diastolic 60–111; PULSE 62–88; RESP 16–18; TEMP 36.2; O2SAT 98–100; BMI 27.9
--- OUTSIDE RECORDS SUMMARY | 2025-08-22 16:39 | XMS RPT_ITS | CCD ---
Author Organization [facility] CliniSymd Care Team Providers Care Home Attendant Name Role Phone Ifeoma Davis MD Primary [...] Care Provider Virginia Avalos PA-C Unavailable Older ROCK CRUSHER.MOLECULAR SPECTROSCOPIST, David Unavailable Domitila Knapp PA-C Unavailable Dr. Ifeoma Davis MD Primary Care Provider Dr. Edgar Beltran MD Attending Provider NP. Allie Prakash Attending Provider NP. Allie Prakash Referring Provider Virginia Avalos PA-C Unavailable Domitila Knapp PA-C Unavailable THORPE, KIMBERLEY Referring Unavailable GANTA, IFEOMA Primary Care Unavailable Susan CORREIA, Dr. Dia Referring Provider [facility], Dr. Fisher Attending Provider Susan CORREIA, Dr. Dia Primary Care Provider Susan CORREIA, Dr. Dia Referring Provider [facility], Dr. Fisher Attending Provider Ruby CORREIA, Dr. Hernández Attending Provider Rakesh CORREIA, Dr. Rodriguez Attending Provider Susan CORREIA, Dr. Dia Primary Care Physician [facility], Dr. Fisher Attending Physician Ruby CORREIA, Dr. Hernández Attending Physician Rakesh CORREIA, Dr. Rodriguez Attending Physician Rakesh CORREIA, Dr. Rodriguez Referring Provider Papi CORREIA, Dr. Zambrano Emergency Department Physician Papi CORREIA, Dr. Zambrano Attending Physician [facility], [facility] Fisher Referring Provider Unglyudmila DO, Dr. Armstrong Attending Physician Wang DO, Dr. Armstrong Emergency Department [facility]ici [facility], Dr. Galarza Emergency Departmen [...] Primary Care Unavailable BorrusoPhillip Attending Unavailable Ganta, Ifemoa Primary Care Unavailable Borruso, Phillip Admitting Unavailable Borruso, Phillip Referring Unavailable Ganta, Ifeoma Primary Care Unavailable Olinda, Allie Referring Unavailable Derry, Allie Attending Unavailable Ganta, Ifeoma Primary Care [...] Unavailable Ganta, Ifeoma Primary Care Unavailable Ruby, Milmine Attending Unavailable Ganta, Ifeoma Primary Care Unavailable Ruby, Milmine Attending Unavailable Ganta, Ifeoma Primary Care Unavailable Ruby, Milmine Attending Unavailable Ganta, Ifeoma Primary Care Unavailable [...] / HYDROcodone Drug Allergy 04-28-20 12 Itching [facility] Nitrofurantoin (1 source) Nitrofurantoin Drug Allergy 03-05-20 20 Other: See Comments [facility] Opioid Agonists (4 sources) HYDROcodone Drug Allergy 03-12-20 06 Itching, Other: See Comments, Vomiting [facility] (20 sources) Acetaminophen / HYDROcodone; Translations: [HYDROCODONE-ACETA MINOPHEN] Drug Allergy 04-28-20 12 Itching [facility] Work Phone: (20 sources) HYDROcodone; Translations: [HYDROCODONE BITARTRATE] Drug Allergy 10-19-19 18 Itching [facility] (20 sources) Morphinan opioid; Translations: [OPIOIDS - MORPHINE ANALOGUES] Drug Allergy 03-05-20 20 Itching [facility] (20 sources) Nitrofurantoin; Translations: [NITROFURANTOIN] Drug Allergy 03-05-20 20 Other: See Comments [facility] (20 sources) Propoxyphene; Translations: [PROPOXYPHENE] Drug Allergy 03-05-20 20 Other: See Comments [facility] (20 sources) traMADol; Translations: [TRAMADOL] Drug Allergy 03-05-20 Other: See Comments [facility] (20 sources) traMADol; Translations: [TRAMADOL HCL] Drug Allergy 03-12-20 06 Vomiting [facility] (20 sources) Propoxyphene N-Acetaminophen; Translations: [PROPOXYPHENE N-ACETAMINOPHEN] Drug Intolerance 04-28-20 12 Mental Status Change [facility] Work Phone: (16 sources) nitrofurantoin macrocrystalline; Translations: [nitrofurantoin macrocrystalline] Propensity to adverse reactions 11-21-19 22 Other [facility] (1 source) HYDROcodone Drug Allergy 07-10-20 [facility] Repository (1 source) Nitrofurantoin Drug Allergy 07-10-20 [facility] Repository (1 source) Propoxyphene Drug Allergy 07-10-20 [facility] Repository (1 source) traMADol Drug Allergy 07-10-20 [facility] Repository Medications Current Medications Medication Drug [...] Comment on above: Take 1 capsule by [facility] three times daily as needed for [...] on above: Take 1 capsule by [facility] twice daily for 7 [...] by mouth once daily 84 hr estradiol 0.56470 mg/hr transdermal system (20 sources) Estrogen Start: [...] Comment on above: Take by mouth. Lacto No.30-Oosnwf-Orw-Larch 25B cell-25B cell-50 mg capsule (2 sources) Start: 06-11-2025 take 1 capsule by [facility] once daily Start: 06-11-2025 take 1 [...] Comment on above: Take 1 capsule by [facility] once daily. prednisoLONE acetate 10 mg/m [...] (obstructive sleep apnea) APAP 5-18 cmH2O [facility] 1 each 12/17/2024 03/24/2025 Discontinued Start: 12-17-2024 End: 05-03-2052 CPAP/BIPAP/OTHER Indications : DAYSI (obstructive sleep apnea) APAP 5-18 cmH2O [facility] 1 each 12/17/2024 05/03/2052 Active cyclopentolate [...] extended release oral tablet (20 sources) Uncompetitive U-juosri-Y-asparta te Receptor Antagonist, Sigma-1 Agonist Start: 08-30-2023 [...] 14 capsule 04/11/2024 12/29/2024 Discontinued Estrogens, Conjugated (SKILLED NURSING) / medroxyPROGESTERone (20 sources) Progestin, Estrogen Start: [...] Vitamin B12 Start: 12-09-2024 End: 06-11-2025 Vitamin K07-Hsjvn Acid 500-400 mcg tablet Discontinued 1 {tbl} [...] on above: Take 1 capsule by [facility] daily at bedtime for [...] Comment on above: Take 1 tablet by [facility] once daily. meclizine hydrochloride 25 mg [...] day for 7 (seven) days, then STOP Bn-6-Kwg-Epa-Fish Oil-Vit D3 720 mg- 25 mcg capsule (12 sources) Start: 12-09-2024 End: 06-11-2025 Hr-3-Rpm-Epa-Fish Oil-Vit D3 720 mg- 25 mcg capsule Discontinued NMA PO December 08, 2024 11:00pm June 11, 2025 12:31pm Start: 12-09-2024 End: 06-11-2025 Fv-4-Xcf-Epa-Fish Oil-Vit D3 720 mg- 25 mcg capsule Discontinued NMA PO December 09, 2024 12:00am June 11, 2025 1:31pm Start: 12-09-2024 Ch-6-Tnm-Epa-F elvia Oil-Vit D3 720 mg- 25 mcg capsule Active NMA PO December 09, 2024 12:00am Complies with drug therapy Start: 12-09-2024 Start: 12-09-2024 Lf-1-Cfd-Epa-F elvia Oil-Vit D3 720 mg- 25 mcg [...] % 1 Drop (AK-DILATE, BENEDICT-SYNEPHRINE) polymyxin b [id number] unt/ml / trimethoprim 1 mg/ml ophthalmic solution [...] 2024 11:00pm March 10, 2025 1:39pm [facility] (4 sources) Start: 06-04-2025 End: 06-11-2025 take 1 capsule by mouth twice daily Saw Sterling 450 mg capsule Discontinued 450 mg PO TWICE A DAY June 03, 2025 11:00pm June 11, 2025 12:32pm Start: 06-04-2025 End: 06-11-2025 take 1 capsule by mouth twice daily [facility] 450 mg capsule Discontinued 450 mg PO TWICE A DAY June 04, 2025 12:00am June 11, 2025 1:32pm Start: 06-04-2025 take 1 capsule by [facility] twice daily tropicamide 10 mg/ml ophthalmic [...] Onset: 06-30-2025 Episodic Other aftercare (1 source) exterminator termite (current) use of 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/antip latelets; Translations: [Encounter [...] Reference Range Facility CNCNPATEDon 07-13-2025 CNCNPATED Normal [facility] CNOVon 07-13-2025 CNOV Normal [facility] CRP SerPl-mCncon 07-13-2025 CRP [Mass/Vol] mg/L Normal <0.9 [facility] Comment on above: Order Comment: Speci men Type: BLOOD SPECIMENOrdering Facility: [facility] Address: [address] [place] [address] Performed By: #### 1 988-5 ####[facility] LABCLIA [id number] [place] [address] [place] Emergency Department Summary on 07-10-2025 Emergency Department Summary [facility] Medical Records Department [address] [place] [address] Emergency Department Summary 07/10/25 MR#: [id number] Acct: [id number] Name: ALLIE LYNN Rep #: [id number] : 1970 55 From: Renato Hanley DO PCP: Dr. Ifeoma Davis MD Status:DEP ER Location: ED HPI History of Present Illness Chief Complaint: Headache Informant: patient and friend Narrative Narrative: Patient is a 55-year-old female with past medical history of hypertension anxiety and fibromyalgia. She states she was recently at the [facility] where she had an MRI of her brain and neck concerning for potential carotid obstruction or tear. She states that at the [facility] she had MRIs which confirmed no acute [...] presents at this time for symptom improvement [facility] Medical History (Updated 07/12/25 @ 00:21 by [...] SUPPLMENT 06/11/25 Unknown History cell-Bifido 25 billion ibnq-BHH-bvbea capsule cevimeline 30 mg capsule 1 cap [...] obstruct (more content not included)... Normal [facility] CNPNon 07-08-2025 CNPN Normal [facility] CNPNon 07-07-2025 CNPN Normal [facility] CNOVon 07-06-2025 CNOV Normal [facility] CNPTOUTREACHon 07-06-2025 CNPTOUTREACH Normal [facility] ALLIED HEALTHon 07-05-2025 ALLIED HEALTH Normal [facility] CBC W Auto Differential pane l (Bld)on 07-05-2025 Basophils (Bld) [#/Vol] 10*3/uL Normal <0.11 [facility] Comment on above: Order Comment: Speci men Type: BLOOD SPECIMENOrdering Facility: [facility] Address: [address] [place] [address] Performed By: #### 5 7021-8 ####[facility] LABCLIA [id number] [place] [address] [place] Basophils/100 WBC (Bld) 0.1 % Normal [facility] Comment on above: Order Comment: Speci men Type: BLOOD SPECIMENOrdering Facility: [facility] Address: [address] [place] [address] Performed By: #### 5 7021-8 ####[facility] LABCLIA [id number] [place] [address] [place] Differential cell count method Nom (Bld) Auto Normal [facility] Comment on above: Order Comment: Speci men Type: BLOOD SPECIMENOrdering Facility: [facility] Address: [address] [place] [address] Performed By: #### 5 7021-8 ####[facility] LABCLIA [id number] [place] [address] [place] Eosinophils (Bld) [#/Vol] 10*3/uL Normal <0.46 [facility] Comment on above: Order Comment: Speci men Type: BLOOD SPECIMENOrdering Facility: [facility] Address: [address] [place] [address] Performed By: #### 5 7021-8 ####[facility] LABCLIA [id number] [place] [address] [place] Eosinophils/100 WBC (Bld) 0.0 % Normal [facility] Comment on above: Order Comment: Speci men Type: BLOOD SPECIMENOrdering Facility: [facility] Address: [address] [place] [address] Performed By: #### 5 7021-8 ####[facility] LABCLIA [id number] [place] [address] [place] Erythrocyte distribution width (RBC) [Ratio] 13.2 % Normal 11.5-15.0 [facility] Comment on above: Order Comment: Speci men Type: BLOOD SPECIMENOrdering Facility: [facility] Address: [address] [place] [address] Performed By: #### 5 7021-8 ####[facility] LABCLIA [id number] [place] [address] [place] Hematocrit (Bld) [Volume fraction] 37.7 % Normal 36.0-46.0 [facility] Comment on above: Order Comment: Speci men Type: BLOOD SPECIMENOrdering Facility: [facility] Address: [address] [place] [address] Performed By: #### 5 7021-8 ####[facility] LABCLIA [id number] [place] [address] [place] Hemoglobin (Bld) [Mass/Vol] 12.7 g/dL Normal 11.5-15.5 [facility] Comment on above: Order Comment: Speci men Type: BLOOD SPECIMENOrdering Facility: [facility] Address: [address] [place] [address] Performed By: #### 5 7021-8 ####[facility] LABCLIA [id number] [place] [address] [place] Immature granulocytes (Bld) [#/Vol] 0.03 10*3/uL Normal <0.10 [facility] Comment on above: Order Comment: Speci men Type: BLOOD SPECIMENOrdering Facility: [facility] Address: [address] [place] [address] Performed By: #### 5 7021-8 ####[facility] LABCLIA [id number] [place] [address] [place] Immature granulocytes/100 WBC (Bld) 0.4 % Normal [facility] Comment on above: Order Comment: Speci men Type: BLOOD SPECIMENOrdering Facility: [facility] Address: [address] [place] [address] Performed By: #### 5 7021-8 ####[facility] LABCLIA [id number] [place] [address] [place] Lymphocytes (Bld) [#/Vol] 0.48 10*3/uL Low 1.00-4.00 [facility] Comment on above: Order Comment: Speci men Type: BLOOD SPECIMENOrdering Facility: [facility] Address: [address] [place] [address] Performed By: #### 5 7021-8 ####[facility] LABCLIA [id number] [place] [address] [place] Lymphocytes/100 WBC (Bld) 5.6 % Normal [facility] Comment on above: Order Comment: Speci men Type: BLOOD SPECIMENOrdering Facility: [facility] Address: [address] [place] [address] Performed By: #### 5 7021-8 ####[facility] LABCLIA [id number] [place] [address] [place] MCH (RBC) [Entitic mass] 30.1 pg Normal 26.0-34.0 [facility] Comment on above: Order Comment: Speci men Type: BLOOD SPECIMENOrdering Facility: [facility] Address: [address] [place] [address] Performed By: #### 5 7021-8 ####[facility] LABIA [id number] [place] [address] [place] MCHC (RBC) [Mass/Vol] 33.7 g/dL Normal 30.5-36.[address] [facility] Comment on above: Order Comment: Speci men Type: BLOOD SPECIMENOrdering Facility: [facility] Address: [address] [place] [address] Performed By: #### 5 7021-8 ####[facility] LABIA [id number] [place] [address] [place] MCV (RBC) [Entitic vol] 89.3 fL Normal 80.0-100.0 [facility] Comment on above: Order Comment: Speci men Type: BLOOD SPECIMENOrdering Facility: [facility] Address: [address] [place] [address] Performed By: #### 5 7021-8 ####[facility] LABCLIA [id number] [place] [address] [place] Monocytes (Bld) [#/Vol] 0.14 10*3/uL Normal <0.87 [facility] Comment on above: Order Comment: Speci men Type: BLOOD SPECIMENOrdering Facility: [facility] Address: [address] [place] [address] Performed By: #### 5 7021-8 ####[facility] LABCLIA [id number] [place] [address] [place] Monocytes/100 WBC (Bld) 1.6 % Normal [facility] Comment on above: Order Comment: Speci men Type: BLOOD SPECIMENOrdering Facility: [facility] Address: [address] [place] [address] Performed By: #### 5 7021-8 ####[facility] LABCLIA [id number] [place] [address] [place] Neutrophils (Bld) [#/Vol] 7.85 10*3/uL High 1.45-7.50 [facility] Comment on above: Order Comment: Speci men Type: BLOOD SPECIMENOrdering Facility: [facility] Address: [address] [place] [address] Performed By: #### 5 7021-8 ####[facility] LABCLIA [id number] [place] [address] [place] Neutrophils/100 WBC (Bld) 92.3 % Normal [facility] Comment on above: Order Comment: Speci men Type: BLOOD SPECIMENOrdering Facility: [facility] Address: [address] [place] [address] Performed By: #### 5 7021-8 ####[facility] LABCLIA [id number] [place] [address] [place] Nucleated RBC (Bld) [#/Vol] 10*3/uL Normal <0.01 [facility] Comment on above: Order Comment: Speci men Type: BLOOD SPECIMENOrdering Facility: [facility] Address: [address] [place] [address] Performed By: #### 5 7021-8 ####[facility] LABCLIA [id number] [place] [address] [place] Nucleated RBC/100 WBC (Bld) [Ratio] 0.0 /100 WBC Normal [facility] Comment on above: Order Comment: Speci men Type: BLOOD SPECIMENOrdering Facility: [facility] Address: [address] [place] [address] Performed By: #### 5 7021-8 ####[facility] LABCLIA [id number] [place] [address] [place] Platelet mean volume (Bld) [Entitic vol] 10.4 fL Normal 9.0-12.7 [facility] Comment on above: Order Comment: Speci men Type: BLOOD SPECIMENOrdering Facility: [facility] Address: [address] [place] [address] Performed By: #### 5 7021-8 ####[facility] LABCLIA [id number] [place] [address] [place] Platelets (Bld) [#/Vol] 314 10*3/uL Normal 150-400 [facility] Comment on above: Order Comment: Speci men Type: BLOOD SPECIMENOrdering Facility: [facility] Address: [address] [place] [address] Performed By: #### 5 7021-8 ####[facility] LABCLIA [id number] [place] [address] [place] RBC (Bld) [#/Vol] 4.22 10*6/uL Normal 3.90-5.20 [facility] Comment on above: Order Comment: Speci men Type: BLOOD SPECIMENOrdering Facility: [facility] Address: [address] [place] [address] Performed By: #### 5 7021-8 ####[facility] LABCLIA [id number] [place] [address] [place] WBC (Bld) [#/Vol] 8.51 10*3/uL Normal 3.70-11.00 [facility] Comment on above: Order Comment: Speci men Type: BLOOD SPECIMENOrdering Facility: [facility] Address: [address] [place] [address] Performed By: #### 5 7021-8 ####[facility] LABCLIA [id number] [place] [address] [place] CNPNon 11-03-2025 CNPN Normal [facility] CONSULTon 07-05-2025 CONSULT Normal [facility] CT BRAIN WO IVCONon 07-05-[address] BRAIN WO IVCON Normal [facility] Comprehensive metabolic 2000 panelon 07-05-2025 Albumin [Mass/Vol] 4.5 g/dL Normal 3.9-4.9 [facility] Comment on above: Order Comment: Speci men Type: BLOOD SPECIMENOrdering Facility: [facility] Address: [address] [place] [address] Performed By: #### 2 4323-8, [id number] ####[facility] LABCLIA [id number] [place] [address] [place] ALP [Catalytic activity/Vol] 116 U/L Normal 34-123 [facility] Comment on above: Order Comment: Speci men Type: BLOOD SPECIMENOrdering Facility: [facility] Address: [address] [place] [address] Performed By: #### 2 4323-8, [id number] ####[facility] LABCLIA [id number] [place] [address] [place] ALT [Catalytic activity/Vol] 18 U/L Normal 7-38 [facility] Comment on above: Order Comment: Speci men Type: BLOOD SPECIMENOrdering Facility: [facility] Address: [address] [place] [address] Performed By: #### 2 4323-8, [id number] ####[facility] LABCLIA [id number] [place] [address] [place] Anion gap [Moles/Vol] 13 mmol/L Normal 8-[address] [facility] Comment on above: Order Comment: Speci men Type: BLOOD SPECIMENOrdering Facility: [facility] Address: [address] [place] [address] Performed By: #### 2 4323-8, [id number] ####[facility] LABCLIA [id number] [place] [address] [place] AST [Catalytic activity/Vol] 18 U/L Normal 13-35 [facility] Comment on above: Order Comment: Speci men Type: BLOOD SPECIMENOrdering Facility: [facility] Address: [address] [place] [address] Performed By: #### 2 4323-8, [id number] ####[facility] LABCLIA [id number] [place] [address] [place] Bilirubin [Mass/Vol] 0.2 mg/dL Normal 0.2-1.3 [facility] Comment on above: Order Comment: Speci men Type: BLOOD SPECIMENOrdering Facility: [facility] Address: [address] [place] [address] Performed By: #### 2 4323-8, [id number] ####[facility] LABCLIA [id number] [place] [address] [place] Calcium [Mass/Vol] 9.7 mg/dL Normal 8.5-10.2 [facility] Comment on above: Order Comment: Speci men Type: BLOOD SPECIMENOrdering Facility: [facility] Address: [address] [place] [address] Performed By: #### 2 4323-8, [id number] ####[facility] LABCLIA [id number] [place] [address] [place] Chloride [Moles/Vol] 101 mmol/L Normal 98-107 [facility] Comment on above: Order Comment: Speci men Type: BLOOD SPECIMENOrdering Facility: [facility] Address: [address] [place] [address] Performed By: #### 2 4323-8, [id number] ####[facility] LABCLIA [id number] [place] [address] [place] CO2 [Moles/Vol] 26 mmol/L Normal 22-30 [facility] Comment on above: Order Comment: Speci men Type: BLOOD SPECIMENOrdering Facility: [facility] Address: [address] [place] [address] Performed By: #### 2 4323-8, [id number] ####[facility] LABCLIA [id number] [place] [id number] [place] Creatinine [Mass/Vol] 1.01 mg/dL High 0.58-0.[address] [facility] Comment on above: Order Comment: Speci men Type: BLOOD SPECIMENOrdering Facility: [facility] Address: [address] [place] [address] Performed By: #### 2 4323-8, [id number] ####[facility] LABCLIA [id number] [place] [address] [place] eGFRcr SerPlBld CKD-EPI 2020 65 mL/min/1.73m??? Normal >=60 [facility] Comment on above: Order Comment: Altafi men Type: BLOOD SPECIMENOrdering Facility: [facility] Address: [address] [place] [address] Result Comment: Zaria mated Glomerular Filtration Rate [...] actual GFR. Performed By: #### 2 4323-8, [id number] ####[facility] LABCLIA [id number] [place] [address] [place] Glucose [Mass/Vol] 116 mg/dL High 74-99 [facility] Comment on above: Order Comment: Speci men Type: BLOOD SPECIMENOrdering Facility: [facility] Address: [address] [place] [address] Result Comment: The [place] [employer] (ADA) provides guidance for cutoff [...] Standards of Medical Care in Diabetes 2016, [place] [employer]. Diabetes Care. 2016.39(Suppl 1). Performed By: #### 2 4323-8, [id number] ####[facility] LABCLIA [id number] [place] [address] [place] Potassium [Moles/Vol] 4.1 mmol/L Normal 3.7-5.[address] [facility] Comment on above: Order Comment: Speci men Type: BLOOD SPECIMENOrdering Facility: [facility] Address: [address] [place] [address] Performed By: #### 2 4323-8, [id number] ####[facility] LABCLIA [id number] [place] [address] [place] Protein [Mass/Vol] 7.4 g/dL Normal 6.3-8.0 [facility] Comment on above: Order Comment: Speci men Type: BLOOD SPECIMENOrdering Facility: [facility] Address: [address] [place] [address] Performed By: #### 2 4323-8, [id number] ####[facility] LABCLIA [id number] [place] [address] [place] Sodium [Moles/Vol] 140 mmol/L Normal 136-144 [facility] Comment on above: Order Comment: Speci men Type: BLOOD SPECIMENOrdering Facility: [facility] Address: [address] [place] [address] Performed By: #### 2 4323-8, [id number] ####[facility] LABCLIA [id number] [place] [address] [place] Urea nitrogen [Mass/Vol] 15 mg/dL Normal 7-21 [facility] Comment on above: Order Comment: Speci men Type: BLOOD SPECIMENOrdering Facility: [facility] Address: [address] [place] [address] Performed By: #### 2 4323-8, [id number] ####[facility] LABCLIA [id number] [place] [id number] [place] [id number] 07-05-2025 ECG01 Normal [facility] ED PROV NOTEon 07-05-2025 ED PROV NOTE Normal [facility] ED Triage Noteon 07-05-2025 ED Triage Note Normal [facility] HIGH SENSITIVITY TROPONIN T (INITIAL)on 07-05-2025 Troponin T.cardiac High sensitivity method [Mass/Vol] <6 Normal <12 [facility] Comment on above: Order Comment: Speci men Type: BLOOD SPECIMENOrdering Facility: [facility] Address: [address] [place] [address] Performed By: #### 2 4323-8, [id number] ####[facility] LABCLIA [id number] [place] [id number] [facility] HIGH SENSITIVITY TROPONIN T (SECOND)on 07-05-2025 Troponin T.cardiac High sensitivity method [Mass/Vol] <6 Normal <12 [facility] Comment on above: Order Comment: Speci men Type: BLOOD SPECIMENOrdering Facility: [facility] Address: [address] [place] [address] Performed By: #### L [id number] ####[facility] LABCLIA [id number] [place] [address] [place] PT panel Coag (PPP)on 2024 INR Coag (PPP) [Relative time] {INR} Low 0.9-1.3 [facility] Comment on above: Order Comment: Speci men Type: BLOOD SPECIMENOrdering Facility: [facility] Address: [address] [place] [address] Result Comment: Kelly min K Antagonist (VKA) Therapeutic Range: INR 2 to 3 (Target INR of 2.5)Note: For patients treated with VKA drugs, such as warfarin, the [place] [employer] 2012 Guideline recommends [...] al. Chest 2012, 141:7S-47SNishmaranda RA, et al. [facility] 2017, 70: 252-289 Performed By: #### 3 4528-0, 71756-8 ####[facility] LABCLIA [id number] [place] [address] [place] PT Coag (PPP) [Time] 9.9 s Normal 9.7-13.0 [facility] Comment on above: Order Comment: Brandan eaton Type: BLOOD SPECIMENOrdering Facility: [facility] Address: [address] [place] [address] Performed By: #### 3 4528-0, 09657-3 ####[facility] LABCLIA [id number] [place] [address] [place] SEPSIS LACTATE W/ REFLEX (IN ITIAL)on 07-05-2025 Lactate [Moles/Vol] 1.9 mmol/L Normal <=2.0 [facility] Comment on above: Order Comment: Brandan eaton Type: BLOOD SPECIMENOrdering Facility: [facility] Address: [address] [place] [address] Performed By: #### S LACTR ####[facility] LABCLIA [id number] [place] [address] [place] XR CHEST 1V FRONTAL PORTon 1 09-04-2024 XR CHEST 1V FRONTAL PORT Normal [facility] aPTT PPPon 07-05-2025 aPTT Coag (PPP) [Time] 22.4 s Low 23.0-32.4 [facility] Comment on above: Order Comment: Speci men Type: BLOOD SPECIMENOrdering Facility: [facility] Address: [address] [place] [address] Result Comment: [facility] Performed By: #### 3 4528-0, 17643-0 ####[facility] LABCLIA [id number] [place] [address] [place] CNPTOUTREACHon 07-02-2025 CNPTOUTREACH Normal [facility] CBC panel Auto (Bld)on 07-01 Erythrocyte distribution width (RBC) [Ratio] 13.1 % Normal 11.5-15.0 [facility] Comment on above: Order Comment: Speci men Type: BLOOD SPECIMENOrdering Facility: [facility] Address: [address] [place] [address] Performed By: #### 5 8410-2 ####[facility] LABCLIA [id number] [place] [address] [place] Hematocrit (Bld) [Volume fraction] 30.2 % Low 36.0-46.0 [facility] Comment on above: Order Comment: Speci men Type: BLOOD SPECIMENOrdering Facility: [facility] Address: [address] [place] [address] Performed By: #### 5 8410-2 ####[facility] LABCLIA [id number] [place] [address] [place] Hemoglobin (Bld) [Mass/Vol] 9.9 g/dL Low 11.5-15.5 [facility] Comment on above: Order Comment: Speci men Type: BLOOD SPECIMENOrdering Facility: [facility] Address: [address] [place] [address] Performed By: #### 5 8410-2 ####[facility] LABCLIA [id number] [place] [address] [place] MCH (RBC) [Entitic mass] 29.5 pg Normal 26.0-34.0 [facility] Comment on above: Order Comment: Speci men Type: BLOOD SPECIMENOrdering Facility: [facility] Address: [address] [place] [address] Performed By: #### 5 8410-2 ####[facility] LABCLIA [id number] [place] [address] [place] MCHC (RBC) [Mass/Vol] 32.8 g/dL Normal 30.5-36.[address] [facility] Comment on above: Order Comment: Speci men Type: BLOOD SPECIMENOrdering Facility: [facility] Address: [address] [place] [address] Performed By: #### 5 8410-2 ####[facility] LABCLIA [id number] [place] [address] [place] MCV (RBC) [Entitic vol] 89.9 fL Normal 80.0-100.0 [facility] Comment on above: Order Comment: Speci men Type: BLOOD SPECIMENOrdering Facility: [facility] Address: [address] [place] [address] Performed By: #### 5 8410-2 ####[facility] LABCLIA [id number] [place] [address] [place] Nucleated RBC (Bld) [#/Vol] 10*3/uL Normal <0.01 [facility] Comment on above: Order Comment: Speci men Type: BLOOD SPECIMENOrdering Facility: [facility] Address: [address] [place] [address] Performed By: #### 5 8410-2 ####[facility] LABCLIA [id number] [place] [address] [place] Platelet mean volume (Bld) [Entitic vol] 10.6 fL Normal 9.0-12.7 [facility] Comment on above: Order Comment: Speci men Type: BLOOD SPECIMENOrdering Facility: [facility] Address: [address] [place] [address] Performed By: #### 5 8410-2 ####[facility] LABCLIA [id number] [place] [address] [place] Platelets (Bld) [#/Vol] 205 10*3/uL Normal 150-400 [facility] Comment on above: Order Comment: Speci men Type: BLOOD SPECIMENOrdering Facility: [facility] Address: [address] [place] [address] Performed By: #### 5 8410-2 ####[facility] LABCLIA [id number] [place] [id number] [place] RBC (Bld) [#/Vol] 3.36 10*6/uL Low 3.90-5.20 [facility] Comment on above: Order Comment: Speci men Type: BLOOD SPECIMENOrdering Facility: [facility] Address: [address] [place] [address] Performed By: #### 5 8410-2 ####[facility] LABCLIA [id number] [place] [address] [place] WBC (Bld) [#/Vol] 4.95 10*3/uL Normal 3.70-11.00 [facility] Comment on above: Order Comment: Speci men Type: BLOOD SPECIMENOrdering Facility: [facility] Address: [address] [place] [address] Performed By: #### 5 8410-2 ####[facility] LABCLIA [id number] [place] [address] [place] CNDSon 07-01-2025 CNDS Normal [facility] Comprehensive metabolic 2000 panelon 07-01-2025 Albumin [Mass/Vol] 3.5 g/dL Low 3.9-4.9 [facility] Comment on above: Order Comment: Speci men Type: BLOOD SPECIMENOrdering Facility: [facility] Address: [address] [place] [address] Performed By: #### 2 4323-8, 77994-8, 2777-1 ####[facility] LABCLIA [id number] [place] [address] [place] ALP [Catalytic activity/Vol] 98 U/L Normal 34-123 [facility] Comment on above: Order Comment: Speci men Type: BLOOD SPECIMENOrdering Facility: [facility] Address: [address] [place] [address] Performed By: #### 2 4323-8, , 2776-09 ####[facility] LABCLIA [id number] [place] [id number] [place] ALT [Catalytic activity/Vol] 12 U/L Normal 7-38 [facility] Comment on above: Order Comment: Speci men Type: BLOOD SPECIMENOrdering Facility: [facility] Address: [address] [place] [address] Performed By: #### 2 4323-8, , 2776-09 ####[facility] LABCLIA [id number] [place] [address] [place] Anion gap [Moles/Vol] 7 mmol/L Low 8-[address] [facility] Comment on above: Order Comment: Speci men Type: BLOOD SPECIMENOrdering Facility: [facility] Address: [address] [place] [address] Performed By: #### 2 4323-8, , 2776-09 ####[facility] LABCLIA [id number] [place] [address] [place] AST [Catalytic activity/Vol] 17 U/L Normal 13-35 [facility] Comment on above: Order Comment: Speci men Type: BLOOD SPECIMENOrdering Facility: [facility] Address: [address] [place] [address] Performed By: #### 2 4323-8, , 2776-09 ####[facility] LABCLIA [id number] [place] [id number] [place] Bilirubin [Mass/Vol] mg/dL Low 0.2-1.3 [facility] Comment on above: Order Comment: Speci men Type: BLOOD SPECIMENOrdering Facility: [facility] Address: [address] [place] [address] Performed By: #### 2 4323-8, , 2776-09 ####[facility] LABCLIA [id number] [place] [address] [place] Calcium [Mass/Vol] 8.6 mg/dL Normal 8.5-10.2 [facility] Comment on above: Order Comment: Speci men Type: BLOOD SPECIMENOrdering Facility: [facility] Address: [address] [place] [address] Performed By: #### 2 4323-8, , 2776-09 ####[facility] LABCLIA [id number] [place] [address] [place] Chloride [Moles/Vol] 112 mmol/L High 98-107 [facility] Comment on above: Order Comment: Speci men Type: BLOOD SPECIMENOrdering Facility: [facility] Address: [address] [place] [address] Performed By: #### 2 432-8, , 2776-09 ####[facility] LABCLIA [id number] [place] [address] [place] CO2 [Moles/Vol] 24 mmol/L Normal 22-30 [facility] Comment on above: Order Comment: Speci men Type: BLOOD SPECIMENOrdering Facility: [facility] Address: [address] [place] [address] Performed By: #### 2 4323-8, , 2776-09 ####[facility] LABCLIA [id number] [place] [id number] [place] Creatinine [Mass/Vol] 0.86 mg/dL Normal 0.58-0.[address] [facility] Comment on above: Order Comment: Speci men Type: BLOOD SPECIMENOrdering Facility: [facility] Address: [address] [place] [address] Performed By: #### 2 4323-8, , 2776-09 ####[facility] LABCLIA [id number] [address] [place] eGFRcr SerPlBld CKD-EPI 2020 79 mL/min/1.73m??? Normal >=60 [facility] Comment on above: Order Comment: Brandan eaton Type: BLOOD SPECIMENOrdering Facility: [facility] Address: [address] [place] [address] Result Comment: Zaria mated Glomerular Filtration Rate [...] actual GFR. Performed By: #### 2 4323-8, 78949-6, 7- ####[facility] LABCLIA [id number] [place] [address] [place] Glucose [Mass/Vol] 87 mg/dL Normal 74-99 [facility] Comment on above: Order Comment: Brandan eaton Type: BLOOD SPECIMENOrdering Facility: [facility] Address: [address] [place] [address] Result Comment: The [place] [employer] (ADA) provides guidance for cutoff [...] Standards of Medical Care in Diabetes 2016, [place] [employer]. Diabetes Care. 2016.39(Suppl 1). Performed By: #### 2 4323-8, 60393-0, 2777- ####[facility] LABCLIA [id number] [place] [id number] [place] Potassium [Moles/Vol] 4.0 mmol/L Normal 3.7-5.[address] [facility] Comment on above: Order Comment: Speci men Type: BLOOD SPECIMENOrdering Facility: [facility] Address: [address] [place] [address] Performed By: #### 2 4323-8, , 2776-09 ####[facility] LABCLIA [id number] [place] [address] [place] Protein [Mass/Vol] 5.4 g/dL Low 6.3-8.0 [facility] Comment on above: Order Comment: Speci men Type: BLOOD SPECIMENOrdering Facility: [facility] Address: [address] [place] [address] Performed By: #### 2 4323-8, , 2776-09 ####[facility] LABCLIA [id number] [place] [id number] [place] Sodium [Moles/Vol] 143 mmol/L Normal 136-144 [facility] Comment on above: Order Comment: Speci men Type: BLOOD SPECIMENOrdering Facility: [facility] Address: [address] [place] [address] Performed By: #### 2 4323-8, , 2776-09 ####[facility] LABCLIA [id number] [place] [address] [place] Urea nitrogen [Mass/Vol] 9 mg/dL Normal 7-21 [facility] Comment on above: Order Comment: Speci men Type: BLOOD SPECIMENOrdering Facility: [facility] Address: [address] [place] [address] Performed By: #### 2 4323-8, , 2776-09 ####[facility] LABCLIA [id number] [place] [id number] [place] ED NOTEon 07-01-2025 ED NOTE HNO ID: [id number] Author: ALICE MARTINEZ LPN Service: Emergency Medicine Author Type: Licensed Nurse Type: ED Notes Filed: 07/01/2025 15:13 Note Text: Pt left AMA signed form stated a few times her ride was outside. Normal [facility] ED NOTE HNO ID: [id number] Author: KIMBERLEY HINDS RN Service: ? Author Type: Registered Nurse Type: ED Notes Filed: 07/01/2025 03:35 Note Text: Report to BRITTANY Murphy. Normal [facility] Magnesium SerPl-mCncon 07-01 Magnesium [Mass/Vol] 2.0 mg/dL Normal 1.7-2.3 [facility] Comment on above: Order Comment: Brandan eaton Type: BLOOD SPECIMENOrdering Facility: [facility] Address: [address] [place] [address] Performed By: #### 2 4323-8, 09911-6, 2777-1 ####[facility] LABCLIA [id number] [address] OF [facility] PT panel Coag (PPP)on 2024 INR Coag (PPP) [Relative time] 1.0 {INR} Normal 0.9-1.3 [facility] Comment on above: Order Comment: Brandan eaton Type: BLOOD SPECIMENOrdering Facility: [facility] Address: [address] [place] [address] Result Comment: Kelly min K Antagonist (VKA) Therapeutic Range: INR 2 to 3 (Target INR of 2.5)Note: For patients treated with VKA drugs, such as warfarin, the [place] [employer] 2012 Guideline recommends [...] al. Chest 2012, 141:7S-47SNishimura RA, et al. [facility] 2017, 70: 252-289 Performed By: #### 1 4979-9, 00045-3 ####[facility] LABCLIA [id number] [place] [id number] [place] PT Coag (PPP) [Time] 10.3 s Normal 9.7-13.0 [facility] Comment on above: Order Comment: Speci men Type: BLOOD SPECIMENOrdering Facility: [facility] Address: [address] [place] [address] Performed By: #### 1 4979-9, 72531-5 ####[facility] LABCLIA [id number] [place] [address] [place] Phosphate SerPl-mCncon 07-01 Phosphate [Mass/Vol] 3.6 mg/dL Normal 2.7-4.8 [facility] Comment on above: Order Comment: Speci men Type: BLOOD SPECIMENOrdering Facility: [facility] Address: [address] [place] [address] Performed By: #### 2 4323-8, 49453-0, 2777-1 ####[facility] [id number] [address] [place] aPTT PPPon 07-01-2025 aPTT Coag (PPP) [Time] s Low 23.0-32.4 [facility] Comment on above: Order Comment: Speci men Type: BLOOD SPECIMENOrdering Facility: [facility] Address: [address] [place] [address] Result Comment: Samp le checked for clot.Result rechecked. Performed By: #### 1 4979-9, 90849-7 ####[facility] LABIA [id number] [place] [address] [place] ALLIED HEALTHon 06-30-2025 ALLIED HEALTH Normal [facility] CBC W Auto Differential pane l (Bld)on 06-30-2025 Basophils (Bld) [#/Vol] 0.03 10*3/uL Normal <0.11 [facility] Comment on above: Order Comment: Speci men Type: BLOOD SPECIMENOrdering Facility: [facility] Address: [address] [place] [address] Performed By: #### 5 7021-8 ####[facility] LABCLIA [id number] [place] [address] [place] Basophils/100 WBC (Bld) 0.5 % Normal [facility] Comment on above: Order Comment: Speci men Type: BLOOD SPECIMENOrdering Facility: [facility] Address: [address] [place] [address] Performed By: #### 5 7021-8 ####[facility] LABCLIA [id number] [place] [address] [place] Differential cell count method Nom (Bld) Auto Normal [facility] Comment on above: Order Comment: Speci men Type: BLOOD SPECIMENOrdering Facility: [facility] Address: [address] [place] [address] Performed By: #### 5 7021-8 ####[facility] LABCLIA [id number] [place] [address] [place] Eosinophils (Bld) [#/Vol] 0.16 10*3/uL Normal <0.46 [facility] Comment on above: Order Comment: Speci men Type: BLOOD SPECIMENOrdering Facility: [facility] Address: [address] [place] [address] Performed By: #### 5 7021-8 ####[facility] LABCLIA [id number] [address] [place] Eosinophils/100 WBC (Bld) 2.9 % Normal [facility] Comment on above: Order Comment: Speci men Type: BLOOD SPECIMENOrdering Facility: [facility] Address: [address] [place] [address] Performed By: #### 5 7021-8 ####[facility] LABCLIA [id number] [place] [address] [place] Erythrocyte distribution width (RBC) [Ratio] 13.2 % Normal 11.5-15.0 [facility] Comment on above: Order Comment: Speci men Type: BLOOD SPECIMENOrdering Facility: [facility] Address: [address] [place] [address] Performed By: #### 5 7021-8 ####[facility] LABCLIA [id number] [place] [address] [place] Hematocrit (Bld) [Volume fraction] 33.8 % Low 36.0-46.0 [facility] Comment on above: Order Comment: Speci men Type: BLOOD SPECIMENOrdering Facility: [facility] Address: [address] [place] [address] Performed By: #### 5 7021-8 ####[facility] LABCLIA [id number] [place] [address] [place] Hemoglobin (Bld) [Mass/Vol] 10.7 g/dL Low 11.5-15.5 [facility] Comment on above: Order Comment: Speci men Type: BLOOD SPECIMENOrdering Facility: [facility] Address: [address] [place] [address] Performed By: #### 5 7021-8 ####[facility] LABCLIA [id number] [place] [address] [place] Immature granulocytes (Bld) [#/Vol] 10*3/uL Normal <0.10 [facility] Comment on above: Order Comment: Speci men Type: BLOOD SPECIMENOrdering Facility: [facility] Address: [address] [place] [address] Performed By: #### 5 7021-8 ####[facility] LABCLIA [id number] [address] [place] Immature granulocytes/100 WBC (Bld) 0.4 % Normal [facility] Comment on above: Order Comment: Speci men Type: BLOOD SPECIMENOrdering Facility: [facility] Address: [address] [place] [address] Performed By: #### 5 7021-8 ####[facility] LABCLIA [id number] [place] [address] [place] Lymphocytes (Bld) [#/Vol] 0.90 10*3/uL Low 1.00-4.00 [facility] Comment on above: Order Comment: Speci men Type: BLOOD SPECIMENOrdering Facility: [facility] Address: [address] [place] [address] Performed By: #### 5 7021-8 ####[facility] LABCLIA [id number] [place] [address] [place] Lymphocytes/100 WBC (Bld) 16.1 % Normal [facility] Comment on above: Order Comment: Speci men Type: BLOOD SPECIMENOrdering Facility: [facility] Address: [address] [place] [address] Performed By: #### 5 7021-8 ####[facility] LABCLIA [id number] [place] [address] [place] MCH (RBC) [Entitic mass] 29.3 pg Normal 26.0-34.0 [facility] Comment on above: Order Comment: Speci men Type: BLOOD SPECIMENOrdering Facility: [facility] Address: [address] [place] [address] Performed By: #### 5 7021-8 ####[facility] LABCLIA [id number] [address] [place] MCHC (RBC) [Mass/Vol] 31.7 g/dL Normal 30.5-36.[address] [facility] Comment on above: Order Comment: Speci men Type: BLOOD SPECIMENOrdering Facility: [facility] Address: [address] [place] [address] Performed By: #### 5 7021-8 ####[facility] LABCLIA [id number] [place] [address] [place] MCV (RBC) [Entitic vol] 92.6 fL Normal 80.0-100.0 [facility] Comment on above: Order Comment: Speci men Type: BLOOD SPECIMENOrdering Facility: [facility] Address: [address] [place] [address] Performed By: #### 5 7021-8 ####[facility] LABCLIA [id number] [place] [address] [place] Monocytes (Bld) [#/Vol] 0.70 10*3/uL Normal <0.87 [facility] Comment on above: Order Comment: Speci men Type: BLOOD SPECIMENOrdering Facility: [facility] Address: [address] [place] [address] Performed By: #### 5 7021-8 ####[facility] LABCLIA [id number] [place] [address] [place] Monocytes/100 WBC (Bld) 12.5 % Normal [facility] Comment on above: Order Comment: Speci men Type: BLOOD SPECIMENOrdering Facility: [facility] Address: [address] [place] [address] Performed By: #### 5 7021-8 ####[facility] LABCLIA [id number] [place] [address] [place] Neutrophils (Bld) [#/Vol] 3.77 10*3/uL Normal 1.45-7.50 [facility] Comment on above: Order Comment: Speci men Type: BLOOD SPECIMENOrdering Facility: [facility] Address: [address] [place] [address] Performed By: #### 5 7021-8 ####[facility] LABCLIA [id number] [address] [place] Neutrophils/100 WBC (Bld) 67.6 % Normal [facility] Comment on above: Order Comment: Speci men Type: BLOOD SPECIMENOrdering Facility: [facility] Address: [address] [place] [address] Performed By: #### 5 7021-8 ####[facility] LABCLIA [id number] [place] [address] [place] Nucleated RBC (Bld) [#/Vol] 10*3/uL Normal <0.01 [facility] Comment on above: Order Comment: Speci men Type: BLOOD SPECIMENOrdering Facility: [facility] Address: [address] [place] [address] Performed By: #### 5 7021-8 ####[facility] LABCLIA [id number] [place] [address] [place] Nucleated RBC/100 WBC (Bld) [Ratio] 0.0 /100 WBC Normal [facility] Comment on above: Order Comment: Speci men Type: BLOOD SPECIMENOrdering Facility: [facility] Address: [address] [place] [address] Performed By: #### 5 7021-8 ####[facility] LABCLIA [id number] [place] [address] [place] Platelet mean volume (Bld) [Entitic vol] 11.4 fL Normal 9.0-12.7 [facility] Comment on above: Order Comment: Speci men Type: BLOOD SPECIMENOrdering Facility: [facility] Address: [address] [place] [address] Performed By: #### 5 7021-8 ####[facility] LABCLIA [id number] [place] [address] [place] Platelets (Bld) [#/Vol] 291 10*3/uL Normal 150-400 [facility] Comment on above: Order Comment: Speci men Type: BLOOD SPECIMENOrdering Facility: [facility] Address: [address] [place] [address] Performed By: #### 5 7021-8 ####[facility] LABCLIA [id number] [place] [address] [place] RBC (Bld) [#/Vol] 3.65 10*6/uL Low 3.90-5.20 [facility] Comment on above: Order Comment: Speci men Type: BLOOD SPECIMENOrdering Facility: [facility] Address: [address] [place] [address] Performed By: #### 5 7021-8 ####[facility] LABCLIA [id number] [place] [address] [place] WBC (Bld) [#/Vol] 5.58 10*3/uL Normal 3.70-11.00 [facility] Comment on above: Order Comment: Speci men Type: BLOOD SPECIMENOrdering Facility: [facility] Address: [address] [place] [address] Performed By: #### 5 7021-8 ####[facility] LABCLIA [id number] [place] [address] [place] CONSULTon 06-30-2025 CONSULT Normal [facility] CTA HEAD WO/W IVCONon 2024 CTA HEAD WO/W IVCON Normal [facility] CTA NECK W IVCONon CTA NECK W IVCON Normal [facility] Comprehensive metabolic 2000 panelon 06-30-2025 Albumin [Mass/Vol] 4.0 g/dL Normal 3.9-4.9 [facility] Comment on above: Order Comment: Speci men Type: BLOOD SPECIMENOrdering Facility: [facility] Address: [address] [place] [address] Performed By: #### 2 4323-8, [id number], , 43856-7 ####[facility] LABCLIA [id number] [place] [address] [place] ALP [Catalytic activity/Vol] 115 U/L Normal 34-123 [facility] Comment on above: Order Comment: Speci men Type: BLOOD SPECIMENOrdering Facility: [facility] Address: [address] [place] [address] Performed By: #### 2 4323-8, [id number], 00187-6, 12906-2 ####[facility] LABCLIA [id number] [place] [id number] [place] ALT [Catalytic activity/Vol] 15 U/L Normal 7-38 [facility] Comment on above: Order Comment: Speci men Type: BLOOD SPECIMENOrdering Facility: [facility] Address: [address] [place] [address] Performed By: #### 2 4323-8, [id number], , 48697-1 ####[facility] LABCLIA [id number] [place] [address] [place] Anion gap [Moles/Vol] 8 mmol/L Normal 8-[address] [facility] Comment on above: Order Comment: Speci men Type: BLOOD SPECIMENOrdering Facility: [facility] Address: [address] [place] [address] Performed By: #### 2 4323-8, [id number], , 05836-9 ####[facility] LABCLIA [id number] [place] [address] [place] AST [Catalytic activity/Vol] 21 U/L Normal 13-35 [facility] Comment on above: Order Comment: Speci men Type: BLOOD SPECIMENOrdering Facility: [facility] Address: [address] [place] [address] Result Comment: Resu lts may be falsely increased due to interference from hemolysis. Suggest reorder as clinically indicated. Performed By: #### 2 4323-8, [id number], , 62560-6 ####[facility] LABCLIA [id number] [place] [address] [place] Bilirubin [Mass/Vol] mg/dL Low 0.2-1.3 [facility] Comment on above: Order Comment: Speci men Type: BLOOD SPECIMENOrdering Facility: [facility] Address: [address] [place] [address] Performed By: #### 2 4323-8, [id number], , 54955-8 ####[facility] LABCLIA [id number] [place] [id number] [place] Calcium [Mass/Vol] 9.4 mg/dL Normal 8.5-10.2 [facility] Comment on above: Order Comment: Speci men Type: BLOOD SPECIMENOrdering Facility: [facility] Address: [address] [place] [address] Performed By: #### 2 4323-8, [id number], 02389-6, 74063-0 ####[facility] LABCLIA [id number] [place] [address] [place] Chloride [Moles/Vol] 105 mmol/L Normal 98-107 [facility] Comment on above: Order Comment: Speci men Type: BLOOD SPECIMENOrdering Facility: [facility] Address: [address] [place] [address] Performed By: #### 2 4323-8, [id number], , 90953-2 ####[facility] LABCLIA [id number] [place] [address] [place] CO2 [Moles/Vol] 24 mmol/L Normal 22-30 [facility] Comment on above: Order Comment: Speci men Type: BLOOD SPECIMENOrdering Facility: [facility] Address: [address] [place] [address] Performed By: #### 2 4323-8, [id number], , 22672-8 ####[facility] LABCLIA [id number] [place] [address] [place] Creatinine [Mass/Vol] 0.82 mg/dL Normal 0.58-0.[address] [facility] Comment on above: Order Comment: Speci men Type: BLOOD SPECIMENOrdering Facility: [facility] Address: [address] [place] [address] Performed By: #### 2 4323-8, [id number], 97626-1, 14419-4 ####[facility] LABCLIA [id number] [place] [address] [place] eGFRcr SerPlBld CKD-EPI 2021 84 mL/min/1.73m??? Normal >=60 [facility] Comment on above: Order Comment: Speci men Type: BLOOD SPECIMENOrdering Facility: [facility] Address: [address] [place] [address] Result Comment: Zaria mated Glomerular Filtration Rate [...] actual GFR. Performed By: #### 2 4323-8, [id number], 84664-9, 81374-0 ####[facility] LABCLIA [id number] [place] [id number] [place] Glucose [Mass/Vol] 84 mg/dL Normal 74-99 [facility] Comment on above: Order Comment: Specemily men Type: BLOOD SPECIMENOrdering Facility: [facility] Address: [address] [place] [address] Result Comment: The [place] [employer] (ADA) provides guidance for cutoff [...] Standards of Medical Care in Diabetes 2016, [place] [employer]. Diabetes Care. 2016.39(Suppl 1). Performed By: #### 2 4323-8, [id number], 08763-2, 20332-4 ####[facility] LABCLIA [id number] [place] [id number] [place] Potassium [Moles/Vol] 4.7 mmol/L Normal 3.7-5.[address] [facility] Comment on above: Order Comment: Specemily men Type: BLOOD SPECIMENOrdering Facility: [facility] Address: [address] [place] [address] Performed By: #### 2 4323-8, [id number], 74817-2, 55609-9 ####[facility] LABCLIA [id number] [place] [address] [place] Protein [Mass/Vol] 6.7 g/dL Normal 6.3-8.0 [facility] Comment on above: Order Comment: Speci men Type: BLOOD SPECIMENOrdering Facility: [facility] Address: [address] [place] [address] Performed By: #### 2 4323-8, [id number], 57502-2, 37930-8 ####[facility] LABCLIA [id number] [place] [id number] [place] Sodium [Moles/Vol] 137 mmol/L Normal 136-144 [facility] Comment on above: Order Comment: Speci men Type: BLOOD SPECIMENOrdering Facility: [facility] Address: [address] [place] [address] Performed By: #### 2 4323-8, [id number], 12566-3, 79735-6 ####[facility] LABCLIA [id number] [place] [id number] [place] Urea nitrogen [Mass/Vol] 12 mg/dL Normal 7-21 [facility] Comment on above: Order Comment: Speci men Type: BLOOD SPECIMENOrdering Facility: [facility] Address: [address] [place] [address] Performed By: #### 2 4323-8, [id number], 26908-7, 67157-5 ####[facility] LABCLIA [id number] [place] [address] [place] ED PROV NOTEon 06-30-2025 ED PROV NOTE Normal [facility] ED PROV NOTE Normal [facility] HIGH SENSITIVITY TROPONIN T (INITIAL)on 06-30-2025 Troponin T.cardiac High sensitivity method [Mass/Vol] <6 Normal <12 [facility] Comment on above: Order Comment: Speci men Type: BLOOD SPECIMENOrdering Facility: [facility] Address: [address] [place] [address] Performed By: #### 2 4323-8, [id number], 27130-3, 39144-1 ####[facility] LABCLIA [id number] [place] [address] [place] HIGH SENSITIVITY TROPONIN T (SECOND)on 06-30-2025 Troponin T.cardiac High sensitivity method [Mass/Vol] <6 Normal <12 [facility] Comment on above: Order Comment: Speci men Type: BLOOD SPECIMENOrdering Facility: [facility] Address: [address] [place] [address] Performed By: #### L [id number] ####[facility] LABIA [id number] [place] [address] [place] HISTORY PHYSICALon HISTORY PHYSICAL Normal [facility] MRA CAROTID WO/W IVCONon MRA CAROTID WO/W IVCON Normal Cl [facility] MRI BRAIN WO IVCONon 025 MRI BRAIN WO IVCON Normal [facility] Magnesium SerPl-mCncon 06-30 Magnesium [Mass/Vol] 2.2 mg/dL Normal 1.7-2.3 [facility] Comment on above: Order Comment: Speci men Type: BLOOD SPECIMENOrdering Facility: [facility] Address: [address] [place] [address] Performed By: #### 2 4323-8, [id number], , 07145-4 ####[facility] LABCLIA [id number] [place] [address] [place] NT-proBNP SerPl-mCncon 06-30 Natriuretic peptide.B prohormone N-Terminal [Mass/Vol] 92 pg/mL Normal <125 [facility] Comment on above: Order Comment: Speci men Type: BLOOD SPECIMENOrdering Facility: [facility] Address: [address] [place] [address] Performed By: #### 2 4323-8, [id number], , 48711-5 ####[facility] LABCLIA [id number] [address] [place] [facility] Absolute lymphocyte countOrd ered By: Renato Hanley on 06-29-2025 Lymphocytes Auto (Unsp spec) [#/Vol] 1.05 10*3/uL 0.83-4.51 [facility] Absolute neutrophil countOrd ered By: Renato Hanley on 06-29-2025 Neutrophils (Bld) [#/Vol] 4.5 10*3/uL 2.0-7.7 [facility] Anion gap in Serum or Plasma Ordered By: Renato Hanley on 06-29-2025 Anion gap [Moles/Vol] 9 mmol/L 01-14 [facility] Automated lymphocyte count a s percentage of total leukocytesOrdered By: Renato Hanley on 06-29-2025 Lymphocytes/100 WBC Auto (Unsp spec) 15.4 % Low 19- [facility] BUN/creatinine ratioOrdered By: Renato Hanley on 06-29-2025 Urea nitrogen/Creatinine [Mass ratio] 16.5 mg/mg 06-21 [facility] Basic Metabolic Profile (BMP )on 06-29-2025 BUN/CRE 16.5 RATIO Normal 06-21 [facility] Comment on above: Performed By: #### L 500.3400, L501.9520, L501.2450, L500.2500, L501.5200 #### [facility] [address] [place], [address] Calcium [Mass/Vol] 9.4 mg/dL Normal 7.6-11.0 [facility] Comment on above: Performed By: #### L 500.3400, L501.9520, L501.2450, L500.2500, L501.5200 #### [facility] [address] [place], [address] Chloride [Moles/Vol] 102 mmol/L Normal 98-108 [facility] Comment on above: Performed By: #### L 500.3400, L501.9520, L501.2450, L500.2500, L501.5200 #### [facility] [address] [place], [address] CO2 [Moles/Vol] 26.6 mmol/L Normal 21.0-32.0 [facility] Comment on above: Performed By: #### L 500.3400, L501.9520, L501.2450, L500.2500, L501.5200 #### [facility] [address] [place], [address] Creatinine [Mass/Vol] 1.01 mg/dL Normal 0.70-1.20 [facility] Comment on above: Performed By: #### L 500.3400, L501.9520, L501.2450, L500.2500, L501.5200 #### [facility] [address] [place], [address] ECRCL 54.95 ml/min Normal 50-250 [facility] Comment on above: Performed By: #### L 500.3400, L501.9520, L501.2450, L500.2500, L501.5200 #### [facility] [address] [place], [address] GAP 9 Normal 5-15 [facility] Comment on above: Performed By: #### L 500.3400, L501.9520, L501.2450, L500.2500, L501.5200 #### [facility] [address] [place], [address] GFR/1.73 sq M.predicted among non-blacks MDRD (S/P/Bld) [Vol rate/Area] 65 mL/min/{1.73_m2} Normal >60 [facility] Comment on above: Result Comment: mL/m in/1.73m2 CKD-EPI Creatinine Equation (2020) Performed By: #### L 500.3400, L501.9520, L501.2450, L500.2500, L501.5200 #### [facility] [address] [place], [address] Glucose [Mass/Vol] 97 mg/dL Normal 70-99 [facility] Comment on above: Performed By: #### L 500.3400, L501.9520, L501.2450, L500.2500, L501.5200 #### [facility] [address] [place], [address] Potassium [Moles/Vol] 4.4 mmol/L Normal 3.3-5.1 [facility] Comment on above: Performed By: #### L 500.3400, L501.9520, L501.2450, L500.2500, L501.5200 #### [facility] [address] [place], [address] Sodium [Moles/Vol] 138 mmol/L Normal 133-145 [facility] Comment on above: Performed By: #### L 500.3400, L501.9520, L501.2450, L500.2500, L501.5200 #### [facility] [address] [place], [address] Urea nitrogen [Mass/Vol] 17 mg/dL Normal 4-19 [facility] Comment on above: Performed By: #### L 500.3400, L501.9520, L501.2450, L500.2500, L501.5200 #### [facility] [address] [place], [address] Basophil percentageOrdered B y: Renato Hanley on 06-29-2025 Basophils/100 WBC (Bld) 0.4 % 0-1 [facility] Bilirubin Test strip Ql (U)O rdered By: Renato Hanley on 06-29-2025 Bilirubin Ql (U) Negative Negative [facility] Bilirubin directOrdered By: Renato Hanley on 06-29-2025 Bilirubin.direct [Mass/Vol] 0.10 mg/dL 0.00-0.30 [facility] Bilirubin, totalOrdered By: Renato Hanley on 06-29-2025 Bilirubin [Mass/Vol] 0.17 mg/dL 0.00-1.30 [facility] CBC W/Diff, Automatedon 06-03 Absolute Lymph 1.05 X10 3/uL Normal 0.83-4.51 [facility] Comment on above: Performed By: #### L 100.0100 ####[facility] [address] [place], [address] Absolute Neut 4.5 X10 3/uL Normal 2.0-7.7 [facility] Comment on above: Performed By: #### L 100.0100 ####[facility] [address] [place], [address] Basophils/100 WBC (Bld) 0.4 % Normal 0-1 [facility] Comment on above: Performed By: #### L 100.0100 ####[facility] [address] [place], [address] Eosinophils/100 WBC (Bld) 3.1 % Normal 0-5 [facility] Comment on above: Performed By: #### L 100.0100 ####[facility] [address] [place], [address] Erythrocyte distribution width (RBC) [Ratio] 13.1 % Normal 11.6-14.6 [facility] Comment on above: Performed By: #### L 100.0100 ####[facility] [address] [place], [address] Hematocrit (Bld) [Volume fraction] 34.1 % Low 37-47 [facility] Comment on above: Performed By: #### L 100.0100 ####[facility] [address] [place], [address] Hemoglobin (Bld) [Mass/Vol] 11.2 g/dL Low 12.0-15.0 [facility] Comment on above: Performed By: #### L 100.0100 ####[facility] [address] [place], [address] IG% 0.300 Normal 0.0-0.9 [facility] Comment on above: Result Comment: IG% - Immature Granulocytes (promyelocytes, myelocytes and metamyelocytes) > 1% indicates that a LEFT SHIFT is Present. Performed By: #### L 100.0100 ####[facility] [address] [place], [address] Lymphocytes/100 WBC (Bld) 15.4 % Low 19-41 [facility] Comment on above: Performed By: #### L 100.0100 ####[facility] [address] [place], [address] MCH (RBC) [Entitic mass] 29.6 pg Normal 27.0-32.0 [facility] Comment on above: Performed By: #### L 100.0100 ####[facility] [address] [place], [address] MCHC (RBC) [Mass/Vol] 32.8 g/dL Normal 32-36 [facility] Comment on above: Performed By: #### L 100.0100 ####[facility] [address] [place], [address] MCV (RBC) [Entitic vol] 90.0 fL Normal 81-99 [facility] Comment on above: Performed By: #### L 100.0100 ####[facility] [address] [place], [address] Monocytes/100 WBC (Bld) 14.2 % High 0-10 [facility] Comment on above: Performed By: #### L 100.0100 ####[facility] [address] [place], [address] Neutrophils/100 WBC (Bld) 66.6 % Normal 47-70 [facility] Comment on above: Performed By: #### L 100.0100 ####[facility] [address] [place], [address] Nucleated RBC (Bld) [#/Vol] 0 10*3/uL Normal 0-5 [facility] Comment on above: Performed By: #### L 100.0100 ####[facility] [address] [place], [address] Platelet mean volume (Bld) [Entitic vol] 10.4 fL Normal 6.2-12.0 [facility] Comment on above: Performed By: #### L 100.0100 ####[facility] [address] [place], [address] Platelets (Bld) [#/Vol] 311 10*3/uL Normal 150-450 [facility] Comment on above: Performed By: #### L 100.0100 ####[facility] [address] [place], [address] RBC (Bld) [#/Vol] 3.79 10*6/uL Low 4.2-5.4 [facility] Comment on above: Performed By: #### L 100.0100 ####[facility] [address] [place], [address] RDW SD 43.0 fl Normal 35.1-43.9 [facility] Comment on above: Performed By: #### L 100.0100 ####[facility] [address] [place], [address] WBC (Bld) [#/Vol] 6.8 10*3/uL Normal 4.4-11.0 [facility] Comment on above: Performed By: #### L 100.0100 ####[facility] [address] [place], [address] Carbon dioxide, total [Moles /volume] in Central venous bloodOrdered By: Renato Hanley on 06-29-2025 CO2 [Moles/Vol] 26.6 mmol/L 21.0-32.0 [facility] Chest 1 View (Portable)on Chest 1 View (Portable) [facility] [address] [place] [address] Chest 1 View (Portable) MR#: [id number] Acct: [id number] Name: ALLIE LYNN ANN Rep #: [id number] : 1970 F 55 From: Fercho us MD PCP: Dr. Ifeoma Davis MD Status: REG ER Study: Chest 1 View (Portable) Date of Exam: 06/29/25 Exam# [id number] Ordering Dr: Renato Hanley DO PROCEDURE: CHEST [...] IMPRESSION: No acute cardiopulmonary process Reading Location: [place] [address] CC: Dr. Ifeoma Davis MD; Renato Hanley DO Receiving Supervisor: Signed Normal [facility] Chloride assayOrdered By: Mojgan Hanley on 06-29-2025 Chloride [Moles/Vol] 102 mmol/L 98-108 [facility] Emergency Department Summary on 06-29-2025 Emergency Department Summary [facility] Medical Records Department [address] [place] [address] Emergency Department Summary 06/29/25 MR#: [id number] Acct: [id number] Name: ALLIE LYNN ANN Rep #: [id number] : 1970 55 From: Renato Hanley DO [...] with this comes in for evaluation [facility] Medical History (Updated 06/29/25 @ 22:57 [...] SUPPLMENT 06/11/25 Unknown History cell-Bifido 25 billion tjyp-RSF-kimlr capsule cevimeline 30 mg capsule 1 cap [...] c (more content not included)... Normal [facility] Eosinophil percentageOrdered By: Renato Hanley on 06-29-2025 Eosinophils/100 WBC (Bld) 3.1 % 0-5 [facility] Erythrocyte distribution wid th ratioOrdered By: Renato Hanley on 06-29-2025 Erythrocyte distribution width (RBC) [Ratio] 13.1 % 11.6-14.6 [facility] Erythrocyte distribution wid th standard deviationOrdered By: Renato Hanley on 06-29-2025 Erythrocyte distribution width (RBC) [Ratio] 43.0 fl 35.1-43.9 [facility] Glomerular filtration rate ( GFR) estimation/1.73 sq m using serum, plasma, or whole bOrdered By: Renato Hanley on 06-29-2025 GFR/1.73 sq M.predicted among non-blacks MDRD (S/P/Bld) [Vol rate/Area] 65 mL/min/{1.73_m2} >60 [facility] Comment on above: mL/min/1.73m2 CKD-EP I Creatinine Equation (2020) Hematocrit Auto (Bld) [Volum e fraction]Ordered By: Renato Hanley on 06-29-2025 Hematocrit (Bld) [Volume fraction] 34.1 % Low 37-47 [facility] Hemoglobin measurementOrdere d By: Renato Hanley on 06-29-2025 Hemoglobin (Bld) [Mass/Vol] 11.2 g/dL Low 12.0-15.0 [facility] Immature granulocytes/100 WB C Auto (Bld)Ordered By: Renato Hanley on 06-29-2025 Immature granulocytes/100 WBC (Bld) 0.300 % 0.0-0.9 [facility] Comment on above: IG% - Immature Granu locytes (promyelocytes, myelocytes and metamyelocytes) > 1% indicates that a LEFT SHIFT is Present. Influenza virus A and B and SARS-CoV-2 (COVID-19) and Respiratory syncytial virus RNAOrdered By: Renato Hanley on 06-29-2025 SARS-CoV-2 (COVID-19) RNA SUKUMAR+probe Ql (Unsp spec) [facility] SARS-CoV-2 (COVID-19) RNA SUKUMAR+probe Ql (Unsp spec) [facility] Ketones Test strip Ql (U)Ord ered By: Renato Hanley on 06-29-2025 Ketones Ql (U) Negative Negative [facility] Laboratory - Chemistry and C hemistry - challengeOrdered By: Renato Hanley on 06-29-2025 AST [Catalytic activity/Vol] 17 U/L <32 [facility] Lipaseon 06-29-2025 Lipase [Catalytic activity/Vol] 22 U/L Normal 13-75 [facility] Comment on above: Result Comment: Janet almanza note: LIPASE revised reference range effective 22. New Lipase methodology. Expected to produce lower values than the previous assay method. NEW Reference Range: 13 - 75 U/L Performed By: #### L 500.3400, L501.9520, L501.2450, L500.2500, L501.5200 #### [facility] [address] [place], [place], [id number] Lipase measurementOrdered By : Renato Hanley on 06-29-2025 Lipase [Catalytic activity/Vol] 22 U/L 13- [facility] Comment on above: Please note:LIPASE r evised reference range effective 22. New Lipase methodology. Expected to produce lower values than the previous assay method. NEW Reference Range: 13 - 75 U/L Liver Profileon 06-29-2025 Albumin [Mass/Vol] 4.1 g/dL Normal 3.5-5.0 [facility] Comment on above: Performed By: #### L 500.3400, L501.9520, L501.2450, L500.2500, L501.5200 #### [facility] [address] [place], [address] ALK PHOS 113 U/L High 35-104 [facility] Comment on above: Performed By: #### L 500.3400, L501.9520, L501.2450, L500.2500, L501.5200 #### [facility] [address] [place], [address] ALT [Catalytic activity/Vol] 16 U/L Normal <=34 [facility] Comment on above: Performed By: #### L 500.3400, L501.9520, L501.2450, L500.2500, L501.5200 #### [facility] [address] [place], [address] AST [Catalytic activity/Vol] 17 U/L Normal <=31 [facility] Comment on above: Performed By: #### L 500.3400, L501.9520, L501.2450, L500.2500, L501.5200 #### [facility] [address] [place], [address] Bilirubin [Mass/Vol] 0.17 mg/dL Normal 0.00-1.30 [facility] Comment on above: Performed By: #### L 500.3400, L501.9520, L501.2450, L500.2500, L501.5200 #### [facility] [address] [place], [address] Bilirubin.direct [Mass/Vol] 0.10 mg/dL Normal 0.00-0.30 [facility] Comment on above: Performed By: #### L 500.3400, L501.9520, L501.2450, L500.2500, L501.5200 #### [facility] [address] [place], [address] Globulin (S) [Mass/Vol] 2.5 g/dL Normal 2.2-4.2 [facility] Comment on above: Performed By: #### L 500.3400, L501.9520, L501.2450, L500.2500, L501.5200 #### [facility] [address] [place], [address] T PROT 6.5 g/dL Normal 5.9-8.4 [facility] Comment on above: Performed By: #### L 500.3400, L501.9520, L501.2450, L500.2500, L501.5200 #### [facility] [address] [place], [address] M100.678on 06-29-2025 M100.678 SARS-CoV-2 (COVID 19 ) Negative INFLUENZA A Negative INFLUENZA B Negative RSV PCR Negative Normal [facility] Comment on above: Performed By: #### M 100.678 ####[facility] [address], [address] MCV (mean corpuscular volume ) determinationOrdered By: Renato Hanley on 06-29-2025 MCV (RBC) [Entitic vol] 90.0 fL 81-99 [facility] Magnesiumon 06-29-2025 Magnesium [Mass/Vol] 2.1 mg/dL Normal 1.5-2.2 [facility] Comment on above: Performed By: #### L 500.3400, L501.9520, L501.2450, L500.2500, L501.5200 #### [facility] [address] [place], [address] Magnesium measurement (mass/ volume)Ordered By: Renato Hanley on 06-29-2025 Magnesium (Unsp spec) [Mass/Vol] 2.1 mg/dL 1.5-2.2 [facility] Mean corpuscular hemoglobin (MCH) determinationOrdered By: Renato Hanley on 06-29-2025 MCH (RBC) [Entitic mass] 29.6 pg 27.0-32.0 [facility] Mean corpuscular hemoglobin concentration (MCHC) determinationOrdered By: Renato Hanley on 06-29-2025 MCHC (RBC) [Mass/Vol] 32.8 g/dL 32-36 [facility] Mean platelet volume determi nationOrdered By: Renato Hanley on 06-29-2025 Platelet mean volume (Bld) [Entitic vol] 10.4 fL 6.2-12.0 [facility] Microscopic analysis of urin e for red blood cells (RBC)Ordered By: Renato Hanley on 06-29-2025 Microscopic analysis of urine for red blood cells (RBC) 0-5 SEEN /hpf 0-5 [facility] Monocyte percentageOrdered B y: Renato Hanley on 06-29-2025 Monocytes/100 WBC (Bld) 14.2 % High 0-10 [facility] Mucus LM Ql (Urine sed)Order ed By: Renato Hanley on 06-29-2025 Mucus Ql (Urine sed) 0 SEEN /hpf [facility] Neutrophil percentageOrdered By: Renato Hanley on 06-29-2025 Neutrophils/100 WBC (Bld) 66.6 % 47-70 [facility] Nitrite Test strip Ql (U)Ord ered By: Renato Hanley on 06-29-2025 Nitrite Ql (U) Negative Negative [facility] Nucleated red blood cell per centageOrdered By: Renato Hanley on 06-29-2025 Nucleated RBC/100 WBC (Bld) [Ratio] 0 % 0-5 [facility] Platelet countOrdered By: oMjgan Hanley on 06-29-2025 Platelets (Bld) [#/Vol] 311 10*3/uL 150-450 [facility] Potassium measurement (mass/ volume)Ordered By: Renato Hanley on 06-29-2025 Potassium (Unsp spec) [Mass/Vol] 4.4 mmol/L 3.3-5.1 [facility] Protein Test strip Ql (U)Ord ered By: Renato Hanley on 06-29-2025 Protein Ql (U) Negative Negative [facility] RBC Auto (Bld) [#/Vol]Ordere d By: Renato Hanley on 06-29-2025 RBC (Bld) [#/Vol] 3.79 10*6/uL Low 4.2-5.4 [facility] Serum creatinine measurement (mass/volume)Ordered By: Renato Hanley on 06-29-2025 Creatinine [Mass/Vol] 1.01 mg/dL 0.70-1.20 [facility] Serum globulin measurementOr dered By: Renato Hanley on 06-29-2025 Globulin (S) [Mass/Vol] 2.5 g/dL 2.2-4.2 [facility] Serum glucose measurement (m ass/volume)Ordered By: Renato Hanley on 06-29-2025 Glucose [Mass/Vol] 97 mg/dL 70-99 [facility] Serum or plasma alanine tse otransferase (ALT) measurementOrdered By: Renato Hanley on 06-29-2025 ALT [Catalytic activity/Vol] 16 U/L <35 [facility] Serum or plasma albumin ross urement (mass/volume)Ordered By: Renato Hanley on 06-29-2025 Albumin [Mass/Vol] 4.1 g/dL 3.5-5.0 [facility] Serum or plasma alkaline aleks sphatase measurementOrdered By: Renato Hanley on 06-29-2025 ALP [Catalytic activity/Vol] 113 U/L High 35-104 [facility] Serum or plasma calcium ross urement (mass/volume)Ordered By: Renato Hanley on 06-29-2025 Calcium [Mass/Vol] 9.4 mg/dL 7.6-11.0 [facility] Serum or plasma urea nitroge n measurement (mass/volume)Ordered By: Renato Hanley on 06-29-2025 Urea nitrogen [Mass/Vol] 17 mg/dL 4-19 [facility] Sodium levelOrdered By: Earl Hanley on 06-29-2025 Sodium [Moles/Vol] 138 mmol/L 133-145 [facility] Squamous epithelial cells de tection in urine sediment by light microscopyOrdered By: Renato Hanley on 06-29-2025 Epithelial cells.squamous LM Ql (Urine sed) 0-5 SEEN /hpf 5-10 [facility] TSH DL <= 0.005 mIU/L QnOrde red By: Renato Hanley on 06-29-2025 TSH Qn 5.840 uIU/mL High 0.300-4.200 [facility] Thyroid Stim Hormone (TSH)on 06-29-2025 TSH 5.840 uIU/mL High 0.300-4.200 [facility] Comment on above: Performed By: #### L 500.3400, L501.9520, L501.2450, L500.2500, L501.5200 ####[facility] [address] [place], [address] Total proteinOrdered By: Ricardo Hanley on 06-29-2025 Protein [Mass/Vol] 6.5 g/dL 5.9-8.4 [facility] Transitional cells detection in urine sediment by light microscopyOrdered By: Renato Hanley on 06-29-2025 Transitional cells LM Ql (Urine sed) 0-5 SEEN /hpf 0-5 [facility] Urinalysis, Completeon 06-29 BACTERIA 1+ /hpf Normal None Seen [facility] Comment on above: Order Comment: CLEAN CATCH Performed By: #### L 400.0001 #### [facility] [address] [place], [address] EPI,SQUAMOUS 0-5 SEEN Normal 5-10 [facility] Comment on above: Order Comment: CLEAN CATCH Performed By: #### L 400.0001 #### [facility] [address] [place], [address] EPI,TRANSITION 0-5 SEEN Normal 0-5 [facility] Comment on above: Order Comment: CLEAN CATCH Performed By: #### L 400.0001 #### [facility] [address] [place], [address] RBC 0-5 SEEN Normal 0-5 [facility] Comment on above: Order Comment: CLEAN CATCH Performed By: #### L 400.0001 #### [facility] [address] [place], [address] WBC 0-5 SEEN Normal 0-5 [facility] Comment on above: Order Comment: CLEAN CATCH Performed By: #### L 400.0001 #### [facility] [address] [place], [place], [address] Mucus Ql (Urine sed) 0 SEEN Normal [facility] Comment on above: Order Comment: CLEAN CATCH Performed By: #### L 400.0001 #### [facility] [address] [place], [place], [address] Urine clarityOrdered By: Ricardo Hanley on 06-29-2025 Clarity (U) Clear Clear [facility] Urine color determinationOrd ered By: Renato Hanley on 06-29-2025 Color (U) Yellow Yellow [facility] Urine glucose detectionOrder ed By: Renato Hanley on 06-29-2025 Glucose Ql (U) Normal mg/dl Normal [facility] Urine leukocyte esterase det ection by dipstickOrdered By: Renato Hanley on 06-29-2025 Leukocyte esterase Test strip Ql (U) 100 /ul High Negative [facility] Urine pHOrdered By: Renato goncalves on 06-29-2025 pH (U) 6.5 [pH] 5.0 - 8.0 [facility] Urine sediment bacteria coun t by microscopy (number/high power field)Ordered By: Renato Hanley on 06-29-2025 Bacteria LM.HPF (Urine sed) [#/Area] 1 /[HPF] None Seen [facility] Urine specific gravity measu rementOrdered By: Renato Hanley on 06-29-2025 Specific gravity (U) [Rel density] 1.010 1.002-1.030 [facility] Urine urobilinogen measureme ntOrdered By: Renato Hanley on 06-29-2025 Urobilinogen Ql (U) Normal mg/dl Normal [facility] White blood cell (WBC) count Ordered By: Renato Hanley on 06-29-2025 WBC (Bld) [#/Vol] 6.8 10*3/uL 4.4-11.0 [facility] White blood cell countOrdere d By: Renato Hanley on 06-29-2025 White blood cell count 0-5 SEEN /hpf 0-5 [facility] CNPNon 06-25-2025 CNPN Normal [facility] Absolute lymphocyte countOrd ered By: Geovanni Sorto on 06-23-2025 Lymphocytes Auto (Unsp spec) [#/Vol] 1.25 10*3/uL 0.83-4.51 [facility] Absolute neutrophil countOrd ered By: Geovanniprisca Sorto on 06-23-2025 Neutrophils (Bld) [#/Vol] 4.7 10*3/uL 2.0-7.7 [facility] Anion gap in Serum or Plasma Ordered By: Geovanniprisca Sorto on 06-23-2025 Anion gap [Moles/Vol] 8 mmol/L 01-14 [facility] Automated lymphocyte count a s percentage of total leukocytesOrdered By: Geovanni Sorto on 06-23-2025 Lymphocytes/100 WBC Auto (Unsp spec) 17.9 % Low 19- [facility] BUN/creatinine ratioOrdered By: Geovanni Sorto on 06-23-2025 Urea nitrogen/Creatinine [Mass ratio] 14.5 mg/mg 06-21 [facility] Basic Metabolic Profile (BMP )on 06-23-2025 BUN/CRE 14.5 RATIO Normal 06-21 [facility] Comment on above: Performed By: #### L 100.0100, L500.2500 ####[facility] [address] [place], [address] Calcium [Mass/Vol] 8.8 mg/dL Normal 7.6-11.0 [facility] Comment on above: Performed By: #### L 100.0100, L500.2500 ####[facility] [address] [place], [address] Chloride [Moles/Vol] 99 mmol/L Normal 98-108 [facility] Comment on above: Performed By: #### L 100.0100, L500.2500 ####[facility] [address] [place], [address] CO2 [Moles/Vol] 28.0 mmol/L Normal 21.0-32.0 [facility] Comment on above: Performed By: #### L 100.0100, L500.2500 ####[facility] [address] [place], [address] Creatinine [Mass/Vol] 1.04 mg/dL Normal 0.70-1.20 [facility] Comment on above: Performed By: #### L 100.0100, L500.2500 ####[facility] [address] [place], [address] ECRCL 53.99 ml/min Normal 50-250 [facility] Comment on above: Performed By: #### L 100.0100, L500.2500 ####[facility] [address] [place], [address] GAP 8 Normal 5-15 [facility] Comment on above: Performed By: #### L 100.0100, L500.2500 ####[facility] [address] [place], [address] GFR/1.73 sq M.predicted among non-blacks MDRD (S/P/Bld) [Vol rate/Area] 63 mL/min/{1.73_m2} Normal >60 [facility] Comment on above: Result Comment: mL/m in/1.73m2 CKD-EPI Creatinine Equation (2020) Performed By: #### L 100.0100, L500.2500 ####[facility] [address] [place], [address] Glucose [Mass/Vol] 92 mg/dL Normal 70-99 [facility] Comment on above: Performed By: #### L 100.0100, L500.2500 ####[facility] [address] [place], [address] Potassium [Moles/Vol] 3.5 mmol/L Normal 3.3-5.1 [facility] Comment on above: Performed By: #### L 100.0100, L500.2500 ####[facility] [address] [place], [address] Sodium [Moles/Vol] 135 mmol/L Normal 133-145 [facility] Comment on above: Performed By: #### L 100.0100, L500.2500 ####[facility] [address] [place], [address] Urea nitrogen [Mass/Vol] 15 mg/dL Normal 4-19 [facility] Comment on above: Performed By: #### L 100.0100, L500.2500 ####[facility] [address] [place], [address] Basophil percentageOrdered B y: Geovanni Sorto on 06-23-2025 Basophils/100 WBC (Bld) 0.3 % 0-1 [facility] Brain/Head without Contrasto n 06-23-2025 Brain/Head without Contrast [facility] Imaging Services [address] [place] [address] Brain/Head without Contrast MR#: [id number] Acct: [id number] Name: ALLIE LYNN Rep #: [id number] : 1970 F 55 From: Manish June MD PCP: Dr. Ifeoma Davis MD Status: REG ER Study: Brain/Head without Contrast Date of Exam: 06/03 10/27 Exam# [id number] Ordering Dr: Geovanni Sorto DO PROCEDURE: CT [...] subarachnoid spaces are normal in size. Absent pitka's point ocular lenses. Intact skull base and calvarium. [...] or high-grade stenosis. No aneurysm. Reading Location: [id number] CC: Dr. Geovanni Sorto DO; Dr. Ifeoma Davis MD Receiving Supervisor: Signed Normal [facility] CBC W/Diff, Automatedon - Absolute Lymph 1.25 X10 3/uL Normal 0.83-4.51 [facility] Comment on above: Performed By: #### L 100.0100, L500.2500 ####[facility] [address] [place], [address] Absolute Neut 4.7 X10 3/uL Normal 2.0-7.7 [facility] Comment on above: Performed By: #### L 100.0100, L500.2500 ####[facility] [address] [place], [address] Basophils/100 WBC (Bld) 0.3 % Normal 0-1 [facility] Comment on above: Performed By: #### L 100.0100, L500.2500 ####[facility] [address] [place], [address] Eosinophils/100 WBC (Bld) 2.4 % Normal 0-5 [facility] Comment on above: Performed By: #### L 100.0100, L500.2500 ####[facility] [address] [place], [address] Erythrocyte distribution width (RBC) [Ratio] 13.2 % Normal 11.6-14.6 [facility] Comment on above: Performed By: #### L 100.0100, L500.2500 ####[facility] [address] [place], [address] Hematocrit (Bld) [Volume fraction] 31.8 % Low 37-47 [facility] Comment on above: Performed By: #### L 100.0100, L500.2500 ####[facility] [address] [place], [address] Hemoglobin (Bld) [Mass/Vol] 10.4 g/dL Low 12.0-15.0 [facility] Comment on above: Performed By: #### L 100.0100, L500.2500 ####[facility] [address] [place], [address] IG% 0.300 Normal 0.0-0.9 [facility] Comment on above: Result Comment: IG% - Immature Granulocytes (promyelocytes, myelocytes and metamyelocytes) > 1% indicates that a LEFT SHIFT is Present. Performed By: #### L 100.0100, L500.2500 ####[facility] [address] [place], [address] Lymphocytes/100 WBC (Bld) 17.9 % Low 19-41 [facility] Comment on above: Performed By: #### L 100.0100, L500.2500 ####[facility] [address] [place], [address] MCH (RBC) [Entitic mass] 29.7 pg Normal 27.0-32.0 [facility] Comment on above: Performed By: #### L 100.0100, L500.2500 ####[facility] [address] [place], [address] MCHC (RBC) [Mass/Vol] 32.7 g/dL Normal 32-36 [facility] Comment on above: Performed By: #### L 100.0100, L500.2500 ####[facility] [address] [place], [address] MCV (RBC) [Entitic vol] 90.9 fL Normal 81-99 [facility] Comment on above: Performed By: #### L 100.0100, L500.2500 ####[facility] [address] [place], [address] Monocytes/100 WBC (Bld) 11.9 % High 0-10 [facility] Comment on above: Performed By: #### L 100.0100, L500.2500 ####[facility] [address] [place], [address] Neutrophils/100 WBC (Bld) 67.2 % Normal 47-70 [facility] Comment on above: Performed By: #### L 100.0100, L500.2500 ####[facility] [address] [place], [address] Nucleated RBC (Bld) [#/Vol] 0 10*3/uL Normal 0-5 [facility] Comment on above: Performed By: #### L 100.0100, L500.2500 ####[facility] [address] [place], [address] Platelet mean volume (Bld) [Entitic vol] 10.3 fL Normal 6.2-12.0 [facility] Comment on above: Performed By: #### L 100.0100, L500.2500 ####[facility] [address] [place], [address] Platelets (Bld) [#/Vol] 274 10*3/uL Normal 150-450 [facility] Comment on above: Performed By: #### L 100.0100, L500.2500 ####[facility] [address] [place], [address] RBC (Bld) [#/Vol] 3.50 10*6/uL Low 4.2-5.4 [facility] Comment on above: Performed By: #### L 100.0100, L500.2500 ####[facility] [address] [place], [address] RDW SD 43.8 fl Normal 35.1-43.9 [facility] Comment on above: Performed By: #### L 100.0100, L500.2500 ####[facility] [address] [place], [address] WBC (Bld) [#/Vol] 7.0 10*3/uL Normal 4.4-11.0 [facility] Comment on above: Performed By: #### L 100.0100, L500.2500 ####[facility] [address] [place], [address] CTA Head AND Neck W/ Contras ton 06-23-2025 CTA Head AND Neck W/ Contrast [facility] Imaging Services [address] [place] [address] CTA Head AND Neck W/ Contrast MR#: [id number] Acct: [id number] Name: ALLIE LYNN Rep #: [id number] : 1970 F 55 From: Manish June MD PCP: Dr. Ifeoma Davis MD Status: REG ER Study: CTA Head AND Neck W/ Contrast Date of Exam: Exam# [id number] Ordering Dr: Geovanni Sorto DO PROCEDURE: CT [...] subarachnoid spaces are normal in size. Absent pitka's point ocular lenses. Intact skull base and calvarium. [...] or high-grade stenosis. No aneurysm. Reading Location: [facility] CC: Dr. Geovanni Sorto DO; Dr. Ifeoma Davis MD Receiving Supervisor: Signed Normal [facility] Carbon dioxide, total [Moles /volume] in Central venous bloodOrdered By: Geovanni Sorto on 06-23-2025 CO2 [Moles/Vol] 28.0 mmol/L 21.0-32.0 [facility] Chloride assayOrdered By: Jeffrey Sorto on 06-23-2025 Chloride [Moles/Vol] 99 mmol/L 98-108 [facility] Emergency Department Summary on 06-23-2025 Emergency Department Summary [facility] Medical Records Department [address] [place] [address] Emergency Department Summary 06/23/25 MR#: [id number] Acct: [id number] Name: ALLIE LYNN ANN Rep #: [id number] : 1970 55 From: Geovanni Sorto DO [...] Psych: Cooperative, appropriate mood and affect [facility] Medical History (Updated 06/23/25 @ 20:49 [...] SUPPLMENT 06/11/25 Unknown History cell-Bifido 25 billion hsqb-HHE-idfog capsule cevimeline 30 mg capsule 1 cap [...] (Fro (more content not included)... Normal [facility] Eosinophil percentageOrdered By: Geovanni Sorto on 06-23-2025 Eosinophils/100 WBC (Bld) 2.4 % 0-5 [facility] Erythrocyte distribution wid th ratioOrdered By: Geovanni Sorto on 06-23-2025 Erythrocyte distribution width (RBC) [Ratio] 13.2 % 11.6-14.6 [facility] Erythrocyte distribution wid th standard deviationOrdered By: Geovanniprisca Mcghee on 06-23-2025 Erythrocyte distribution width (RBC) [Ratio] 43.8 fl 35.1-43.9 [facility] Glomerular filtration rate ( GFR) estimation/1.73 sq m using serum, plasma, or whole bOrdered By: Geovanniprisca Sorto on 06-23-2025 GFR/1.73 sq M.predicted among non-blacks MDRD (S/P/Bld) [Vol rate/Area] 63 mL/min/{1.73_m2} >60 [facility] Comment on above: mL/min/1.73m2 CKD-EP I Creatinine Equation (2020) Hematocrit Auto (Bld) [Volum e fraction]Ordered By: Geovanniprisca Sorto on 06-23-2025 Hematocrit (Bld) [Volume fraction] 31.8 % Low 37-47 [facility] Hemoglobin measurementOrdere d By: Geovanni Sorto on 06-23-2025 Hemoglobin (Bld) [Mass/Vol] 10.4 g/dL Low 12.0-15.0 [facility] Immature granulocytes/100 WB C Auto (Bld)Ordered By: [place] Noreen on 06-23-2025 Immature granulocytes/100 WBC (Bld) 0.300 % 0.0-0.9 [facility] Comment on above: IG% - Immature Granu locytes (promyelocytes, myelocytes and metamyelocytes) > 1% indicates that a LEFT SHIFT is Present. MCV (mean corpuscular volume ) determinationOrdered By: Geovanni Sorto on 06-23-2025 MCV (RBC) [Entitic vol] 90.9 fL 81-99 [facility] Mean corpuscular hemoglobin (MCH) determinationOrdered By: Geovanni Noreen on 06-23-2025 MCH (RBC) [Entitic mass] 29.7 pg 27.0-32.0 [facility] Mean corpuscular hemoglobin concentration (MCHC) determinationOrdered By: Geovanni Noreen on 06-23-2025 MCHC (RBC) [Mass/Vol] 32.7 g/dL 32-36 [facility] Mean platelet volume determi nationOrdered By: Geovanni Sorto on 06-23-2025 Platelet mean volume (Bld) [Entitic vol] 10.3 fL 6.2-12.0 [facility] Monocyte percentageOrdered B y: Geovanni Sorto on 06-23-2025 Monocytes/100 WBC (Bld) 11.9 % High 0-10 [facility] Neutrophil percentageOrdered By: Geovanni Sorto on 06-23-2025 Neutrophils/100 WBC (Bld) 67.2 % 47-70 [facility] Nucleated red blood cell per centageOrdered By: Geovanni Sorto on 06-23-2025 Nucleated RBC/100 WBC (Bld) [Ratio] 0 % 0-5 [facility] Platelet countOrdered By: Jeffrey Sorto on 06-23-2025 Platelets (Bld) [#/Vol] 274 10*3/uL 150-450 [facility] Potassium measurement (mass/ volume)Ordered By: Geovanni Sorto on 06-23-2025 Potassium (Unsp spec) [Mass/Vol] 3.5 mmol/L 3.3-5.1 [facility] RBC Auto (Bld) [#/Vol]Ordere d By: Geovanni Sorto on 06-23-2025 RBC (Bld) [#/Vol] 3.50 10*6/uL Low 4.2-5.4 [facility] Serum creatinine measurement (mass/volume)Ordered By: Geovanni Sorto on 06-23-2025 Creatinine [Mass/Vol] 1.04 mg/dL 0.70-1.20 [facility] Serum glucose measurement (m ass/volume)Ordered By: Geovanni Sorto on 06-23-2025 Glucose [Mass/Vol] 92 mg/dL 70-99 [facility] Serum or plasma calcium ross urement (mass/volume)Ordered By: Geovanni Mcghee on 06-23-2025 Calcium [Mass/Vol] 8.8 mg/dL 7.6-11.0 [facility] Serum or plasma urea nitroge n measurement (mass/volume)Ordered By: Geovanniprisca FuentesRaymond on 06-23-2025 Urea nitrogen [Mass/Vol] 15 mg/dL 4-19 [facility] Sodium levelOrdered By: Lee l [facility] hospital[facility] on 06-23-2025 Sodium [Moles/Vol] 135 mmol/L 133-145 [facility] White blood cell (WBC) count Ordered By: [facility] on 06-23-2025 WBC (Bld) [#/Vol] 7.0 10*3/uL 4.4-11.0 [facility] Extremity Lower without Cont raon 06-21-2025 Extremity Lower without Contra [facility] Imaging Services [address] [place] [address] Extremity Lower without Contra MR#: [id number] Acct: [id number] Name: ALLIE LYNN Rep #: [id number] : 1970 F 55 From: Grant Lora MD PCP: Dr. Ifeoma Davis MD Status: REG CLI Study: Extremity Lower without Contra Date of Exam: Exam# [id number] Ordering Dr: Phillip Pozo DO PROCEDURE: EXTREMITY [...] Ifeoma Davis MD; Dr. Phillip Pozo DO Receiving Supervisor: Signed Normal [facility] Fructosamineon 06-19-2025 FRUCTOSAMINE 212 umol/L Normal 0-285 [facility] Comment on above: Result Comment: Publ ished reference interval for apparently healthy subjects between age 20 and 60 is 205 - 285 umol/L and in a poorly controlled diabetic population is 228 - 563 umol/L with a mean of 396 umol/L. Performed at: [address] [id number] Supervisor [employer]: Regis Carballo PhD, Phone: [phone] Performed By: #### L 500.2500, L300.4310, L3400.0100, L501.5200, L501.9985, L300.3900, L100.0100 ####[facility] [address] [place], [place], [address] MRSA/SAID NASAL SCREENon MRSA+SAID SCRN Reason for Exam: PREOP MRSA MRSA Negative S. AUREUS S. aureus Negative Normal [facility] Comment on above: Performed By: #### B TSPAT, M100.651 ####[facility] [address] [place], [address] CNPNon 06-18-2025 CNPN Normal [facility] Basic Metabolic Profile (BMP )on 06-17-2025 BUN/CRE 16.4 RATIO Normal - [facility] Comment on above: Performed By: #### L 500.2500, L300.4310, L3400.0100, L501.5200, L501.9985, L300.3900, L100.0100 ####[facility] [address] [place], [address] Calcium [Mass/Vol] 9.5 mg/dL Normal 7.6-11.0 [facility] Comment on above: Performed By: #### L 500.2500, L300.4310, L3400.0100, L501.5200, L501.9985, L300.3900, L100.0100 ####[facility] [address] [place], [address] Chloride [Moles/Vol] 101 mmol/L Normal 98-108 [facility] Comment on above: Performed By: #### L 500.2500, L300.4310, L3400.0100, L501.5200, L501.9985, L300.3900, L100.0100 ####[facility] [address] [place], [address] CO2 [Moles/Vol] 27.7 mmol/L Normal 21.0-32.0 [facility] Comment on above: Performed By: #### L 500.2500, L300.4310, L3400.0100, L501.5200, L501.9985, L300.3900, L100.0100 ####[facility] [address] [place], [address] Creatinine [Mass/Vol] 0.87 mg/dL Normal 0.70-1.20 [facility] Comment on above: Performed By: #### L 500.2500, L300.4310, L3400.0100, L501.5200, L501.9985, L300.3900, L100.0100 ####[facility] [address] [place], [address] GAP 11 Normal 5-15 [facility] Comment on above: Performed By: #### L 500.2500, L300.4310, L3400.0100, L501.5200, L501.9985, L300.3900, L100.0100 ####[facility] [address] [place], [address] GFR/1.73 sq M.predicted among non-blacks MDRD (S/P/Bld) [Vol rate/Area] 78 mL/min/{1.73_m2} Normal >60 [facility] Comment on above: Result Comment: mL/m in/1.73m2 CKD-EPI Creatinine Equation (2020) Performed By: #### L 500.2500, L300.4310, L3400.0100, L501.5200, L501.9985, L300.3900, L100.0100 ####[facility] [address] [place], [address] Glucose [Mass/Vol] 89 mg/dL Normal 70-99 [facility] Comment on above: Performed By: #### L 500.2500, L300.4310, L3400.0100, L501.5200, L501.9985, L300.3900, L100.0100 ####[facility] [address] [place], [address] Potassium [Moles/Vol] 4.3 mmol/L Normal 3.3-5.1 [facility] Comment on above: Performed By: #### L 500.2500, L300.4310, L3400.0100, L501.5200, L501.9985, L300.3900, L100.0100 ####[facility] [address] [place], [address] Sodium [Moles/Vol] 140 mmol/L Normal 133-145 [facility] Comment on above: Performed By: #### L 500.2500, L300.4310, L3400.0100, L501.5200, L501.9985, L300.3900, L100.0100 ####[facility] [address] [place], [address] Urea nitrogen [Mass/Vol] 14 mg/dL Normal 4-19 [facility] Comment on above: Performed By: #### L 500.2500, L300.4310, L3400.0100, L501.5200, L501.9985, L300.3900, L100.0100 ####[facility] [address] [place], [address] Brain/Head without Contrasto n 06-17-2025 Brain/Head without Contrast [facility] Imaging Services [address] [place] [address] Brain/Head without Contrast MR#: [id number] Acct: [id number] Name: ALLIE LYNN Rep #: [id number] : 1970 F 55 From: Manish June MD PCP: Dr. Ifeoma Davis MD Status: REG ER Study: Brain/Head without Contrast Date of Exam: 06/02 02/24 Exam# [id number] Ordering Dr: Patti Piña DO PROCEDURE: CT [...] subarachnoid spaces are normal in size. Absent pitka's point ocular lenses. Intact skull base and calvarium. [...] provider Patti Piña 06/17/2025 at 6 p.m. CATERING ASSOCIATE. Reading Location: [id number] CC: Dr. Ifeoma Davis MD; Dr. Patti Piña, DO Receiving Supervisor: Signed Normal [facility] CBC W/Diff, Automatedon 10- Absolute Lymph 0.96 X10 3/uL Normal 0.83-4.51 [facility] Comment on above: Performed By: #### L 500.2500, L300.4310, L3400.0100, L501.5200, L501.9985, L300.3900, L100.0100 ####[facility] [address] [place], [place], [address] Absolute Neut 5.1 X10 3/uL Normal 2.0-7.7 [facility] Comment on above: Performed By: #### L 500.2500, L300.4310, L3400.0100, L501.5200, L501.9985, L300.3900, L100.0100 ####[facility] [address] [place], [address] Basophils/100 WBC (Bld) 0.6 % Normal 0-1 [facility] Comment on above: Performed By: #### L 500.2500, L300.4310, L3400.0100, L501.5200, L501.9985, L300.3900, L100.0100 ####[facility] [address] [place], [address] Eosinophils/100 WBC (Bld) 1.9 % Normal 0-5 [facility] Comment on above: Performed By: #### L 500.2500, L300.4310, L3400.0100, L501.5200, L501.9985, L300.3900, L100.0100 ####[facility] [address] [place], [address] Erythrocyte distribution width (RBC) [Ratio] 13.2 % Normal 11.6-14.6 [facility] Comment on above: Performed By: #### L 500.2500, L300.4310, L3400.0100, L501.5200, L501.9985, L300.3900, L100.0100 ####[facility] [address] [place], [address] Hematocrit (Bld) [Volume fraction] 38.6 % Normal 37-47 [facility] Comment on above: Performed By: #### L 500.2500, L300.4310, L3400.0100, L501.5200, L501.9985, L300.3900, L100.0100 ####[facility] [address] [place], [address] Hemoglobin (Bld) [Mass/Vol] 12.3 g/dL Normal 12.0-15.0 [facility] Comment on above: Performed By: #### L 500.2500, L300.4310, L3400.0100, L501.5200, L501.9985, L300.3900, L100.0100 ####[facility] [address] [place], [address] IG% 0.400 Normal 0.0-0.9 [facility] Comment on above: Result Comment: IG% - Immature Granulocytes (promyelocytes, myelocytes and metamyelocytes) > 1% indicates that a LEFT SHIFT is Present. Performed By: #### L 500.2500, L300.4310, L3400.0100, L501.5200, L501.9985, L300.3900, L100.0100 ####[facility] [address] [place], [address] Lymphocytes/100 WBC (Bld) 13.9 % Low 19-41 [facility] Comment on above: Performed By: #### L 500.2500, L300.4310, L3400.0100, L501.5200, L501.9985, L300.3900, L100.0100 ####[facility] [address] [place], [address] MCH (RBC) [Entitic mass] 29.6 pg Normal 27.0-32.0 [facility] Comment on above: Performed By: #### L 500.2500, L300.4310, L3400.0100, L501.5200, L501.9985, L300.3900, L100.0100 ####[facility] [address] [place], [address] MCHC (RBC) [Mass/Vol] 31.9 g/dL Low 32-36 [facility] Comment on above: Performed By: #### L 500.2500, L300.4310, L3400.0100, L501.5200, L501.9985, L300.3900, L100.0100 ####[facility] [address] [place], [address] MCV (RBC) [Entitic vol] 92.8 fL Normal 81-99 [facility] Comment on above: Performed By: #### L 500.2500, L300.4310, L3400.0100, L501.5200, L501.9985, L300.3900, L100.0100 ####[facility] [address] [place], [address] Monocytes/100 WBC (Bld) 9.4 % Normal 0-10 [facility] Comment on above: Performed By: #### L 500.2500, L300.4310, L3400.0100, L501.5200, L501.9985, L300.3900, L100.0100 ####[facility] [address] [place], [address] Neutrophils/100 WBC (Bld) 73.8 % High 47-70 [facility] Comment on above: Performed By: #### L 500.2500, L300.4310, L3400.0100, L501.5200, L501.9985, L300.3900, L100.0100 ####[facility] [address] [place], [address] Nucleated RBC (Bld) [#/Vol] 0 10*3/uL Normal 0-5 [facility] Comment on above: Performed By: #### L 500.2500, L300.4310, L3400.0100, L501.5200, L501.9985, L300.3900, L100.0100 ####[facility] [address] [place], [address] Platelet mean volume (Bld) [Entitic vol] 10.5 fL Normal 6.2-12.0 [facility] Comment on above: Performed By: #### L 500.2500, L300.4310, L3400.0100, L501.5200, L501.9985, L300.3900, L100.0100 ####[facility] [address] [place], [address] Platelets (Bld) [#/Vol] 332 10*3/uL Normal 150-450 [facility] Comment on above: Performed By: #### L 500.2500, L300.4310, L3400.0100, L501.5200, L501.9985, L300.3900, L100.0100 ####[facility] [address] [place], [address] RBC (Bld) [#/Vol] 4.16 10*6/uL Low 4.2-5.4 [facility] Comment on above: Performed By: #### L 500.2500, L300.4310, L3400.0100, L501.5200, L501.9985, L300.3900, L100.0100 ####[facility] [address] [place], [address] RDW SD 45.3 fl High 35.1-43.9 [facility] Comment on above: Performed By: #### L 500.2500, L300.4310, L3400.0100, L501.5200, L501.9985, L300.3900, L100.0100 ####[facility] [address] [place], [address] WBC (Bld) [#/Vol] 6.9 10*3/uL Normal 4.4-11.0 [facility] Comment on above: Performed By: #### L 500.2500, L300.4310, L3400.0100, L501.5200, L501.9985, L300.3900, L100.0100 ####[facility] [address] [place], [address] CTA Head AND Neck W/ Contras ton 06-17-2025 CTA Head AND Neck W/ Contrast [facility] Imaging Services [address] [place] [address] CTA Head AND Neck W/ Contrast MR#: [id number] Acct: [id number] Name: ALLIE LYNN Rep #: [id number] : 1970 F 55 From: Manish June MD PCP: Dr. Ifeoma Davis MD Status: REG ER Study: CTA Head AND Neck W/ Contrast Date of Exam: Exam# [id number] Ordering Dr: Patti Piña DO PROCEDURE: CT [...] subarachnoid spaces are normal in size. Absent pitka's point ocular lenses. Intact skull base and calvarium. [...] provider Patti Piña 06/17/2025 at 6 p.m. CATERING ASSOCIATE. Reading Location: [facility] CC: Dr. Ifeoma Davis MD; Dr. Patti Piña DO Receiving Supervisor: Signed Normal [facility] Emergency Department Summary on 06-17-2025 Emergency Department Summary [facility] Medical Records Department [address] [place] [address] Emergency Department Summary 06/17/25 MR#: [id number] Acct: [id number] Name: ALLIE LYNN Rep #: [id number] : 1970 55 From: Patti Piña DO PCP: Dr. Ifeoma Davis MD Status:[facility] ER Location: ED HPI History [...] high risk to have the surgery. [facility] Medical History (Updated 06/17/25 @ 19:32 [...] SUPPLMENT 06/11/25 Unknown History cell-Bifido 25 billion thyo-ZWO-kglym capsule cevimeline 30 mg capsule 1 cap [...] Surgi (more content not included)... Normal [facility] Hemoglobin A1con 06-17-2025 HbA1c (Bld) [Mass fraction] 5.6 % Normal <=5.6 [facility] Comment on above: Result Comment: Norm al < 5.7 % Prediabetic 5.7 - 6.4 % Diabetic >or= 6.5 % Please note range changes. Performed By: #### L 500.2500, L300.4310, L3400.0100, L501.5200, L501.9985, L300.3900, L100.0100 ####[facility] [address] [place], [address] MR/PAT.MARYon 06-17-2025 MR/PAT.MARY [facility] Medical Records Department [address] [place] [address] PAT - Anesthesia 06/17/25 1528 MR#: [id number] Acct: [id number] Name: ALLIE LYNN ANN Rep #: [id number] : 1970 55 From: Rusty Guerrero MD PCP: Dr. 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: Anesthesia History - sports medicine masseur Hx Hospitalization No 06/11/25 13:38 Any Problems [...] take am of surgery PONV PONV - sports medicine masseur: PONV - sports medicine masseur Female Yes 06/11/25 13:38 HX of Motion [...] 06/03/25 15:26 Respiratory Assessment Respiratory Assessment - sports medicine masseur: Respiratory Tract Infection Hx - sports medicine masseur Hx Respiratory Tract Infection No 06/11/25 13:38 STOP Sleep Apnea STOP Sleep Apnea - sports medicine masseur: STOP Sleep Apnea - sports medicine masseur Hx Hypertension Yes 06/11/25 13:38 Hx Sleep [...] Tobacco Use History Tobacco Use History - sports medicine masseur: Tobacco Use History - sports medicine masseur Tobacco Use Smoking Status Never smoker 06/11/25 13:38 Hx Tobacco Use No 06/11/25 13:38 Years Smoking Packs Smoked per Day Smoking Cessation Date was within the last 15 years Hx Smoking Cessation Date Hx Smoking Cessation Counseling Hematologic Medial History Hematologic Hx - sports medicine masseur: 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 Normal [facility] Magnesiumon 06-17-2025 Magnesium [Mass/Vol] 2.1 mg/dL Normal 1.5-2.2 [facility] Comment on above: Performed By: #### L 500.2500, L300.4310, L3400.0100, L501.5200, L501.9985, L300.3900, L100.0100 ####[facility] [address] [place], [address] Partial Thromboplast Timeon 06-17-2025 aPTT Coag (Bld) [Time] 24.0 s Low 24.1-36.2 [facility] Comment on above: Performed By: #### L 500.2500, L300.4310, L3400.0100, L501.5200, L501.9985, L300.3900, L100.0100 ####[facility] [address] [place], [place], [address] Prothrombin Time w/INRon INR Coag (PPP) [Relative time] 0.9 {INR} Normal [facility] Comment on above: Performed By: #### L 500.2500, L300.4310, L3400.0100, L501.5200, L501.9985, L300.3900, L100.0100 ####[facility] [address] [place], [address] PT Coag (PPP) [Time] 12.5 s Normal 11.7-14.9 [facility] Comment on above: Performed By: #### L 500.2500, L300.4310, L3400.0100, L501.5200, L501.9985, L300.3900, L100.0100 ####[facility] [address] [place], [address] Type AND Screen - PAT ONLYon 06-17-2025 Ab SCREEN GEL Negative Normal [facility] Comment on above: Order Comment: Reaso n for Laboratory Test [id number] REPLACEMENT Performed By: #### B TSPAT, M100.651 ####[facility] [address] [place], [address] CNPNon 06-14-2025 CNPN Normal [facility] CNPNon 06-10-2025 CNPN Normal [facility] HIP, UNI W/ Pelvis 2-3 Views on 06-04-2025 HIP, UNI W/ Pelvis 2-3 Views [facility] Imaging Services [address] [place] [address] HIP, UNI W/ Pelvis 2-3 Views MR#: [id number] Acct: [id number] Name: ALLIE LYNN Rep #: [id number] : 1970 F 55 From: Don Sampson PCP: Dr. Ifeoma Davis MD Status: DEP AMB Study: HIP, UNI W/ Pelvis 2-3 Views Date of Exam: 11/24 Exam# [id number] Ordering Dr: Phillip Pozo DO PROCEDURE: HIP, [...] dislocation is seen. Reading Location: [place] [address] CC: Dr. Ifeoma Davis MD; Dr. Phillip Pozo DO Receiving Supervisor: Signed Normal [facility] Orthopedic Visit Reporton Orthopedic Visit Report [facility] [address] [place] [address] OFFICE VISIT Date of Service: 06/04/25 MR#: [id number] Acct: [id number] Name: ALLIE LYNN Rep #: [id number] : 1970 Provider: Dr. 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 Normal [facility] Orthopedic Visit Reporton Orthopedic Visit Report [facility] [address] [place] [address] [address] [place] [address] OFFICE VISIT Date of Service: 06/03/25 MR#: [id number] Acct: [id number] Name: ALLIE LYNN Rep #: [id number] : 1970 Provider: Dr. Michael Cameron MD Age/Sex: 55/F Location: [facility] Status: Signed Intake Vital Signs [...] QDAY 12/09/24 06/03/25 H istory omega-3 720 li-sdf-roi-fish cap PO 12/09/24 06/03/25 History oil-vit D3 [...] you fallen in the past year?: Yes [facility] Medical History Hip arthritis Degenerative scoliosis [...] Doi (more content not included)... Normal [facility] CNOVon 05-27-2025 CNOV Normal [facility] Emergency Department Summary on 05-27-2025 Emergency Department Summary [facility] Medical Records Department [address] [place] [address] Emergency Department Summary 05/27/25 MR#: [id number] Acct: [id number] Name: ALLIE LYNN Rep #: [id number] : 1970 55 From: Juan Manuel Turpin [...] symptoms: No Recent Illness/Hospitalizati on: No PFSH [facility] Medical History Hip arthritis Degenerative scoliosis [...] QDAY 12/09/24 Unknown Hi story omega-3 720 ng-xck-xmn-fish cap PO 12/09/24 Unknown History oil-vit D3 [...] Respiratory/Ch (more content not included)... Normal [facility] Lipid 1996 panelon 5 Cholesterol [Mass/Vol] 144 mg/dL Normal <200 [facility] Comment on above: Order Comment: Speci men Type: BLOOD SPECIMENOrdering Facility: [facility] Address: [address] [place] [address] Result Comment: <200 mg/dL, Desirable 200-239 mg/dL, Borderline high>239 mg/dL, High Performed By: #### 2 4331-1 ####[facility] LABIA [id number] [address] [place] Cholesterol in HDL [Mass/Vol] 53 mg/dL Normal >39 [facility] Comment on above: Order Comment: Speci men Type: BLOOD SPECIMENOrdering Facility: [facility] Address: [address] [place] [address] Result Comment: 40-5 9 mg/dL, Acceptable>59 mg/dL, High: Negative risk factor for coronary heart disease<40 mg/dL, Low: Positive risk factor for coronary heart disease Performed By: #### 2 4331-1 ####[facility] LABCLIA [id number] [address] [place] Cholesterol in LDL [Mass/Vol] 73 mg/dL Normal <100 [facility] Comment on above: Order Comment: Speci men Type: BLOOD SPECIMENOrdering Facility: [facility] Address: [address] [place] [address] Result Comment: <100 mg/dL, Optimal 100-129 mg/dL, Near optimal/above optimal 130-159 mg/dL, Borderline high 160-189 mg/dL, High>189 mg/dL, Very highSecondary prevention optimal LDL Cholesterol levels are recommended to be <70 mg/dLLDL cholesterol is calculated using the Miranda-NIH equation. Performed By: #### 2 4331-1 ####[facility] LABIA [id number] [place] [address] [place] Cholesterol in LDL/Cholesterol in HDL [Mass ratio] 1.38 {ratio} Normal <2.54 [facility] Comment on above: Order Comment: Altafi men Type: BLOOD SPECIMENOrdering Facility: [facility] Address: [address] [place] [address] Result Comment: Refe rence:1. National Cholesterol Education Program ATP III Guideline At-A-Glance Quick Desk Reference: National Heart, Lung, and Blood [place]. National Institutes of Health. 2001: NIH Publication No. 01-3305.2. An International Atherosclerosis Society position paper: global recommendations for the management of dyslipidemia: executive summary, Atherosclerosis. 2014: 232(2):410-413. Performed By: #### 2 4331-1 ####[facility] [id number] [place] [address] [place] Cholesterol in VLDL [Mass/Vol] 14 mg/dL Normal <30 [facility] Comment on above: Order Comment: Brandan eaton Type: BLOOD SPECIMENOrdering Facility: [facility] Address: [address] [place] [address] Performed By: #### 2 4331-1 ####[facility] [id number] [place] [id number] [place] Cholesterol non HDL [Mass/Vol] 91 mg/dL Normal <130 [facility] [facility] Comment on above: Order Comment: Brandan angelito Type: BLOOD SPECIMENOrdering Facility: [facility] Address: [address] [place] [address] Result Comment: <130 mg/dL, Optimal 130-159 mg/dL, Near optimal/above optimal 160-189 mg/dL, Borderline high 190-219 mg/dL, High>219 mg/dL, Very highSecondary prevention optimal non HDL Cholesterol levels are recommended to be <100 mg/dL Performed By: #### 2 4331-1 ####[facility] LABCLIA [id number] [place] [address] [place] Cholesterol.total/Choles terol in HDL [Mass ratio] 2.72 {ratio} Normal <5.10 [facility] Comment on above: Order Comment: Speci men Type: BLOOD SPECIMENOrdering Facility: [facility] Address: [address] [place] [address] Performed By: #### 2 4331-1 ####[facility] LABIA [id number] [place] [address] [place] FASTING TIME 13 hrs Normal [facility] Comment on above: Order Comment: Speci men Type: BLOOD SPECIMENOrdering Facility: [facility] Address: [address] [place] [address] Performed By: #### 2 4331-1 ####[facility] LABIA [id number] [place] [address] [place] Triglyceride [Mass/Vol] 96 mg/dL Normal <150 [facility] Comment on above: Order Comment: Speci men Type: BLOOD SPECIMENOrdering Facility: [facility] Address: [address] [place] [address] Result Comment: <150 mg/dL, Normal 150-199 mg/dL, Borderline high 200-499 mg/dL, High>499 mg/dL, Very high Performed By: #### 2 4331-1 ####[facility] LABIA [id number] [place] [address] [place] CNPNon 05-17-2025 CNPN Normal [facility] Magnetic resonance imaging r eportOrdered By: Brittaney Barth on 05-10-2025 Study report [facility] Imaging Services [address] [place], [place] [id number] Spine Lumbar (Routine) MR#: [id number] Acct: [id number] Name: ALLIE LYNN Rep #: [id number] : 1970 F 55 From: Shaan Barth MD PCP: Dr. Ifeoma Davis MD Status: REG C WALLY Study:Spine Lumbar (Routine) Date of Exam: 05/07/25 Exam# [id number] Ordering Dr: Shauna Cameron MD PROCEDURE: SPINE [...] L1-2 with associated central stenosis. Reading Location: [facility] CC: Dr. Michael Cameron MD; Dr. Ifeoma Davis MD ~ Receiving Supervisor: Signed [facility] Spine Lumbar (Routine)on Spine Lumbar (Routine) [facility] Imaging Services [address] [place] [address] Spine Lumbar (Routine) MR#: [id number] Acct: [id number] Name: ALLIE LYNN Rep #: [id number] : 1970 F 55 From: Brittaney stacy MD PCP: Dr. Ifeoma Davis MD Status: REG CLI Study: Spine Lumbar (Routine) Date of Exam: 05/07/25 Exam# [id number] Ordering Dr: Michael Cameron MD PROCEDURE: SPINE [...] L1-2 with associated central stenosis. Reading Location: [facility] CC: Dr. Michael Cameron MD; Dr. Ifeoma Davis MD Receiving Supervisor: Signed [facility] CNPNon 04-28-2025 CNPN Normal [facility] CNOVon 04-22-2025 CNOV Normal [facility] CNPNon 04-22-2025 CNPN Normal [facility] L/S Spine Bending Flex/Onaka 04-16-2025 L/S Spine Bending Flex/Ext [facility] Imaging Services [address] [place] [address] L/S Spine Bending Flex/Ext MR#: [id number] Acct: [id number] Name: ALLIE LYNN Rep #: [id number] : 1970 F 54 From: Alan Perales MD PCP: Dr. Ifeoma Davis MD Status: DEP AMB Study: L/S Spine Bending Flex/Ext Date of Exam: 04/16 Exam# [id number] Ordering Dr: Sarah Pino PROCEDURE: L/S SPINE [...] pronounced at L3-4. Multilevel spondylolisthesis. Reading Location: [facility] CC: KENA Perkins; Dr. Ifeoma Davis MD Receiving Supervisor: Signed [facility] Orthopedic Visit Reporton Orthopedic Visit Report [facility] [address] [place] [address] OFFICE VISIT Date of Service: 04/16/25 MR#: [id number] Acct: [id number] Name: ALLIE LYNN Rep #: [id number] : 1970 Provider: Dr. Michael Cameron MD Age/Sex: 54/F Location[facility] Status: Signed Intake Vital Signs [...] QDAY 12/09/24 04/16/25 H istory omega-3 720 lt-mlv-mof-fish cap PO 12/09/24 04/16/25 History oil-vit D3 [...] by me, Dr. Michael Cameron MD 04/16/25 4900. Part of today???s visit was documented by [...] she had gotten in the past did health insurance assessor her temporary relief. She has became more of a fall risk due to the pain and stiffness. She does have weakness in her left leg and primarily uses the right leg to lead especially when going up steps. Dr. Betancourt did prescribe her Percocet yesterday for rosanne (more content not included)... Normal [facility] CNOVon 04-11-2025 CNOV Normal [facility] CNPNon 04-03-2025 CNPN Normal [facility] CNPNon 03-31-2025 CNPN Normal [facility] CNPNon 03-30-2025 CNPN Normal [facility] CNPNon 03-26-2025 CNPN Normal [facility] ANES POSTPROC EVALon 025 ANES POSTPROC EVAL Normal [facility] ANES PRE-OPon 03-25-2025 ANES PRE-OP Normal [facility] OPERATIVE NOon 03-25-2025 OPERATIVE NO Normal [facility] Basic metabolic 2000 panelOr dered By: Mahsa Aponte on 03-24-2025 Anion gap [Moles/Vol] 12 mmol/L 8 - 15 mmol/L [facility] Calcium [Mass/Vol] 9.6 mg/dL 8.5 - 10. 2 mg/dL [facility] Chloride [Moles/Vol] 99 mmol/L 98 - 10 7 mmol/L [facility] CO2 [Moles/Vol] 25 mmol/L 22 - 30 mmol/L [facility] Creatinine [Mass/Vol] 0.99 mg/dL High 0.58 - 0.96 mg/dL [facility] GFR/1.73 sq M.predicted among non-blacks MDRD (S/P/Bld) [Vol rate/Area] 67 mL/min/{1.73_m2} - PINF [facility] Comment on above: Estimated Glomerular Filtration [...] [Mass/Vol] 94 mg/dL 74 - 99 mg/dL [facility] Comment on above: The [place] Diabete s Association (ADA) provides guidance for [...] Standards of Medical Care in Diabetes 2016, [place] Diabetes Association. Diabetes Care. 2016.39(Suppl 1). Interpretation and review of laboratory results Abnormal [facility] Potassium [Moles/Vol] 4.1 mmol/L 3.7 - 5.1 mmol/L [facility] Sodium [Moles/Vol] 136 mmol/L 136 - 144 mmol/L [facility] Urea nitrogen [Mass/Vol] 20 mg/dL 7 - 21 mg/d L [facility] Basic metabolic 2000 panelon 03-24-2025 Anion gap [Moles/Vol] 12 mmol/L Normal 8-[address] [facility] Comment on above: Order Comment: Speci men Type: BLOOD SPECIMENOrdering Facility: [facility] Address: [address] [place], [place] [address] Performed By: #### 2 4321-2 ####[facility]ITALNCLIA [id number] [place] [address] [place] Calcium [Mass/Vol] 9.6 mg/dL Normal 8.5-10.2 [facility] Comment on above: Order Comment: Speci men Type: BLOOD SPECIMENOrdering Facility: [facility] Address: [address] [place] [address] Performed By: #### 2 4321-2 ####[facility]ITALNCS[facility] [id number] [place] [address] [place] Chloride [Moles/Vol] 99 mmol/L Normal 98-107 [facility] Comment on above: Order Comment: Speci men Type: BLOOD SPECIMENOrdering Facility: [facility] Address: [address] [place] [address] Performed By: #### 2 4321-2 ####[facility] [id number] [place] [address] [place] CO2 [Moles/Vol] 25 mmol/L Normal 22-30 [facility] Comment on above: Order Comment: Speci men Type: BLOOD SPECIMENOrdering Facility: [facility] Address: [address] [place] [address] Performed By: #### 2 4321-2 ####[facility] HOSPITALNCA [id number] [place] [address] [place] Creatinine [Mass/Vol] 0.99 mg/dL High 0.58-0.[address] [facility] Comment on above: Order Comment: Speci men Type: BLOOD SPECIMENOrdering Facility: [facility] Address: [address] [place], [place] [address] Performed By: #### 2 4321-2 ####[facility] HOSPITALWNCLIA [id number] [place] [address] [place] eGFRcr SerPlBld CKD-EPI 2020 67 mL/min/1.73m??? Normal >=60 [facility] Comment on above: Order Comment: Brandan eaton Type: BLOOD SPECIMENOrdering Facility: [facility] Address: [address] [place] [address] Result Comment: Zaria mated Glomerular Filtration Rate [...] actual GFR. Performed By: #### 2 4321-2 ####[facility] HOSPITALLIA [id number] [place] [address] [place] Glucose [Mass/Vol] 94 mg/dL Normal 74-99 [facility] Comment on above: Order Comment: Brandan eaton Type: BLOOD SPECIMENOrdering Facility: [facility] Address: [address] [place] [address] Result Comment: The [place] Diabetes Association (ADA) provides guidance for cutoff [...] Standards of Medical Care in Diabetes 2016, [place] Diabetes Association. Diabetes Care. 2016.39(Suppl 1). Performed By: #### 2 4321-2 ####[facility] [id number] [place] [address] [place] Potassium [Moles/Vol] 4.1 mmol/L Normal 3.7-5.[address] [facility] Comment on above: Order Comment: Speci men Type: BLOOD SPECIMENOrdering Facility: [facility] Address: [address] [place] [address] Performed By: #### 2 4321-2 ####[facility] JAIDENMARLINROS [id number] [place] [address] [place] Sodium [Moles/Vol] 136 mmol/L Normal 136-144 [facility] Comment on above: Order Comment: Speci men Type: BLOOD SPECIMENOrdering Facility: [facility] Address: [address] [place] [address] Performed By: #### 2 4321-2 ####[facility] JAIDENMARLINJOSSELINELIA [id number] [place] [address] [place] Urea nitrogen [Mass/Vol] 20 mg/dL Normal 7-21 [facility] Comment on above: Order Comment: Speci men Type: BLOOD SPECIMENOrdering Facility: [facility] Address: [address] [place] [address] Performed By: #### 2 4321-2 ####[facility] JAIDENWJOSSELINELIA [id number] [place] [address] [place] CBC W Auto Differential pane l (Bld)on 03-24-2025 Basophils (Bld) [#/Vol] 0.05 10*3/uL [facility] Basophils/100 WBC (Bld) 0.6 % C [facility] Differential cell count method Nom (Bld) Auto [facility] Eosinophils (Bld) [#/Vol] 0.23 10*3/uL [facility] Eosinophils/100 WBC (Bld) 2.9 % [facility] Erythrocyte distribution width (RBC) [Ratio] 12.7 % 11.5 - 15.0 % [facility] Hematocrit (Bld) [Volume fraction] 36.8 % 36.0 - 46.0 % [facility] Hemoglobin (Bld) [Mass/Vol] 12.1 g/dL 11.5 - 15.5 g/dL [facility] Immature granulocytes (Bld) [#/Vol] 0.04 10*3/uL [facility] Immature granulocytes/100 WBC (Bld) 0.5 % [facility] Lymphocytes (Bld) [#/Vol] 1.31 10*3/uL [facility] Lymphocytes/100 WBC (Bld) 16.7 % [facility] MCH (RBC) [Entitic mass] 29.9 pg 26. 0 - 34.0 pg [facility] MCHC (RBC) [Mass/Vol] 32.9 g/dL 30.5 - 36.0 g/dL [facility] MCV (RBC) [Entitic vol] 90.9 fL 80.0 - 100.0 fL [facility] Monocytes (Bld) [#/Vol] 0.85 10*3/uL [facility] Monocytes/100 WBC (Bld) 10.8 % [facility] Neutrophils (Bld) [#/Vol] 5.38 10*3/uL [facility] Neutrophils/100 WBC (Bld) 68.5 % [facility] Nucleated RBC (Bld) [#/Vol] [facility] Nucleated RBC/100 WBC (Bld) [Ratio] 0 % /100 WBC [facility] Platelet mean volume (Bld) [Entitic vol] 9.8 fL 9.0 - 12.7 fL [facility] Platelets (Bld) [#/Vol] 375 10*3/uL [facility] RBC (Bld) [#/Vol] 4.05 10*6/uL 3.90 - 5.2 0 m/uL [facility] WBC (Bld) [#/Vol] 7.86 10*3/uL [facility] Basophils (Bld) [#/Vol] 0.05 10*3/uL Normal <0.11 [facility] Comment on above: Order Comment: Speci men Type: BLOOD SPECIMENOrdering Facility: [facility] Address: [address] [place] [address] Performed By: #### 5 7021-8 ####[facility] MILLTOWNCLIA [id number] [place] [address] [place] Basophils/100 WBC (Bld) 0.6 % Normal [facility] Comment on above: Order Comment: Speci men Type: BLOOD SPECIMENOrdering Facility: [facility] Address: [address] [place] [address] Performed By: #### 5 7021-8 ####[facility] JAIDENWJOSSELINELIA [id number] [place] [address] [place] Differential cell count method Nom (Bld) Auto Normal [facility] Comment on above: Order Comment: Speci men Type: BLOOD SPECIMENOrdering Facility: [facility] Address: [address] [place] [address] Performed By: #### 5 7021-8 ####[facility] JAIDENCHONLIA [id number] [place] [address] [place] Eosinophils (Bld) [#/Vol] 0.23 10*3/uL Normal <0.46 [facility] Comment on above: Order Comment: Speci men Type: BLOOD SPECIMENOrdering Facility: [facility] Address: [address] [place] [address] Performed By: #### 5 7021-8 ####[facility] JAIDENKingsleyJOSSELINELIA [id number] [place] [address] [place] Eosinophils/100 WBC (Bld) 2.9 % Normal [facility] Comment on above: Order Comment: Speci men Type: BLOOD SPECIMENOrdering Facility: [facility] Address: [address] [place] [address] Performed By: #### 5 7021-8 ####[facility] JAIDENMARLINNCLIA [id number] [place] [address] [place] Erythrocyte distribution width (RBC) [Ratio] 12.7 % Normal 11.5-15.0 [facility] Comment on above: Order Comment: Speci men Type: BLOOD SPECIMENOrdering Facility: [facility] Address: [address] [place] [address] Performed By: #### 5 7021-8 ####[facility] BARBARA SALGADONCMYRNA [id number] [place] [address] [place] Hematocrit (Bld) [Volume fraction] 36.8 % Normal 36.0-46.0 [facility] Comment on above: Order Comment: Speci men Type: BLOOD SPECIMENOrdering Facility: [facility] Address: [address] [place] [address] Performed By: #### 5 7021-8 ####[facility] HOSPITALNCWALLYA [id number] [place] [address] [place] Hemoglobin (Bld) [Mass/Vol] 12.1 g/dL Normal 11.5-15.5 [facility] Comment on above: Order Comment: Speci men Type: BLOOD SPECIMENOrdering Facility: [facility] Address: [address] [place] [address] Performed By: #### 5 7021-8 ####[facility] H[facility]ITALNCLIA [id number] [place] [address] [place] Immature granulocytes (Bld) [#/Vol] 0.04 10*3/uL Normal <0.10 [facility] Comment on above: Order Comment: Speci men Type: BLOOD SPECIMENOrdering Facility: [facility] Address: [address] [place] [address] Performed By: #### 5 7021-8 ####[facility]ITALNCLIA [id number] [place] [address] [place] Immature granulocytes/100 WBC (Bld) 0.5 % Normal [facility] Comment on above: Order Comment: Speci men Type: BLOOD SPECIMENOrdering Facility: [facility] Address: [address] [place] [address] Performed By: #### 5 7021-8 ####[facility] MILLWNCLIA [id number] [place] [address] [place] Lymphocytes (Bld) [#/Vol] 1.31 10*3/uL Normal 1.00-4.00 [facility] Comment on above: Order Comment: Speci men Type: BLOOD SPECIMENOrdering Facility: [facility] Address: [address] [place] [address] Performed By: #### 5 7021-8 ####[facility]ITALNCLIA [id number] [place] [address] [place] Lymphocytes/100 WBC (Bld) 16.7 % Normal [facility] Comment on above: Order Comment: Speci men Type: BLOOD SPECIMENOrdering Facility: [facility] Address: [address] [place] [address] Performed By: #### 5 7021-8 ####[facility]ITALNCLIA [id number] [place] [address] [place] MCH (RBC) [Entitic mass] 29.9 pg Normal 26.0-34.0 [facility] Comment on above: Order Comment: Speci men Type: BLOOD SPECIMENOrdering Facility: [facility] Address: [address] [place] [address] Performed By: #### 5 7021-8 ####[facility]ITALNCLIA [id number] [place] [address] [place] MCHC (RBC) [Mass/Vol] 32.9 g/dL Normal 30.5-36.[address] [facility] Comment on above: Order Comment: Speci men Type: BLOOD SPECIMENOrdering Facility: [facility] Address: [address] [place] [address] Performed By: #### 5 7021-8 ####[facility] HOSPITALLIA [id number] [place] [address] [place] MCV (RBC) [Entitic vol] 90.9 fL Normal 80.0-100.0 [facility] Comment on above: Order Comment: Speci men Type: BLOOD SPECIMENOrdering Facility: [facility] Address: [address] [place] [address] Performed By: #### 5 7021-8 ####[facility]OSPITALA [id number] [place] [address] [place] Monocytes (Bld) [#/Vol] 0.85 10*3/uL Normal <0.87 [facility] Comment on above: Order Comment: Speci men Type: BLOOD SPECIMENOrdering Facility: [facility] Address: [address] [place] [address] Performed By: #### 5 7021-8 ####[facility] HOSPITALJuli [id number] [place] [address] [place] Monocytes/100 WBC (Bld) 10.8 % Normal [facility] Comment on above: Order Comment: Speci men Type: BLOOD SPECIMENOrdering Facility: [facility] Address: [address] [place] [address] Performed By: #### 5 7021-8 ####[facility] HOSPITALLIA [id number] [place] [address] [place] Neutrophils (Bld) [#/Vol] 5.38 10*3/uL Normal 1.45-7.50 [facility] Comment on above: Order Comment: Speci men Type: BLOOD SPECIMENOrdering Facility: [facility] Address: [address] [place] [address] Performed By: #### 5 7021-8 ####[facility] HOSPITALLIA [id number] [place] [address] [place] Neutrophils/100 WBC (Bld) 68.5 % Normal [facility] Comment on above: Order Comment: Speci men Type: BLOOD SPECIMENOrdering Facility: [facility] Address: [address] [place] [address] Performed By: #### 5 7021-8 ####[facility] JAIDENMARLINROS [id number] [place] [address] [place] Nucleated RBC (Bld) [#/Vol] 10*3/uL Normal <0.01 [facility] Comment on above: Order Comment: Speci men Type: BLOOD SPECIMENOrdering Facility: [facility] Address: [address] [place] [address] Performed By: #### 5 7021-8 ####[facility] [id number] [place] [address] [place] Nucleated RBC/100 WBC (Bld) [Ratio] 0.0 /100 WBC Normal [facility] Comment on above: Order Comment: Speci men Type: BLOOD SPECIMENOrdering Facility: [facility] Address: [address] [place] [address] Performed By: #### 5 7021-8 ####[facility] [id number] [place] [address] [place] Platelet mean volume (Bld) [Entitic vol] 9.8 fL Normal 9.0-12.7 [facility] Comment on above: Order Comment: Speci men Type: BLOOD SPECIMENOrdering Facility: [facility] Address: [address] [place] [address] Performed By: #### 5 7021-8 ####[facility] HOSPITALLIA [id number] [place] [address] [place] Platelets (Bld) [#/Vol] 375 10*3/uL Normal 150-400 [facility] Comment on above: Order Comment: Speci men Type: BLOOD SPECIMENOrdering Facility: [facility] Address: [address] [place], [place] [address] Performed By: #### 5 7021-8 ####[facility] MICHAELWNCLIA [id number] [place] [address] [place] RBC (Bld) [#/Vol] 4.05 10*6/uL Normal 3.90-5.20 [facility] Comment on above: Order Comment: Speci men Type: BLOOD SPECIMENOrdering Facility: [facility] Address: [address] [place] [address] Performed By: #### 5 7021-8 ####[facility]ITALNCLIA [id number] [place] [address] [place] WBC (Bld) [#/Vol] 7.86 10*3/uL Normal 3.70-11.00 [facility] Comment on above: Order Comment: Speci men Type: BLOOD SPECIMENOrdering Facility: [facility] Address: [address] [place] [address] Performed By: #### 5 7021-8 ####[facility]ITALNCLIA [id number] [place] [address] [place] CNPNon 03-24-2025 CNPN Normal [facility] HISTORY PHYSICALon HISTORY PHYSICAL Normal [facility] CNPNon 03-23-2025 CNPN Normal [facility] FUNDUS PHOTOS OU (BOTH EYES) on 03-23-2025 [facility] No Panel Informationon 03-23 Radiology Study observation (narrative) [facility] OCT OPTIC NERVE CIRRUS OU (B OTH EYES)on 03-23-2025 [facility] PACHYMETRY OU (BOTH EYES)on 03-23-2025 [facility] Radiology Study observation (narrative) [facility] SLIT LAMP PHOTOS OU (BOTH EY ES)on 03-23-2025 [facility] CNPTOUTREACHon 03-16-2025 CNPTOUTREACH Normal [facility] Lumbar Spine 2 or 3 Viewson 03-10-2025 Lumbar Spine 2 or 3 Views [facility] Imaging Services [address] [place], [place] [address] Lumbar Spine 2 or 3 Views MR#: [id number] Acct: [id number] Name: ALLIE LYNN Rep #: [id number] : 1970 F 54 From: Alan Perales MD PCP: Dr. Ifeoma Davis MD Status: DEP AMB Study: Lumbar Spine 2 or 3 Views Date of Exam: Exam# [id number] Ordering Dr: Phillip Pozo DO PROCEDURE: LUMBAR SPINE 2 OR 3 VIEWS 03/10/2025 REASON FOR EXAM: CHRONIC BACK PAIN TECHNIQUE: LUMBAR SPINE 2 OR 3 VIEWS COMPARISON: None. FINDINGS: No evidence of acute fracture or dislocation. Levoscoliosis. Lkpa-xq-uujflxio discogenic degenerative changes of the visualized spine. RAD/Lumbar Spine 2 or 3 Views IMPRESSION: Spondylosis. Levoscoliosis. Reading Location: [id number] CC: Dr. Ifeoma Davis MD; Dr. Phillip Pozo DO Receiving Supervisor: Signed Normal [facility] Orthopedic Visit Reporton Orthopedic Visit Report [facility] [address] [place] [address] OFFICE VISIT Date of Service: 03/10/25 MR#: [id number] Acct: [id number] Name: ALLIE LYNN ANN Rep #: [id number] : 1970 Provider: Dr. Phillip goldman DO Age/Sex: 54/F Location: [facility] Status: Signed Intake Vital Signs 12/09/24 13:28 [...] QDAY 12/09/24 03/10/25 H istory omega-3 720 mw-wyf-swg-fish cap PO 12/09/24 03/10/25 History oil-vit D3 [...] Betancourt. (more content not included)... Normal [facility] CNNURSEon 03-02-2025 CNNURSE Normal [facility] CNPNon 03-01-2025 CNPN Normal [facility] CNPNon 02-25-2025 CNPN Normal [facility] CNPNon 01-12-2025 CNPN Normal [facility] CNPNon 12-30-2024 CNPN Normal [facility] CNOVon 12-29-2024 CNOV Normal [facility] POLYSOMNOGRAM (PSG)on 2024 [facility] at [address] [address] ; PSG Study Report Name: ALLIE LYNN Date of Study: 11/17/2024 CCF#: [id number] Age: 54 (: 1970) ESS: 01/23 Neck [...] PSG 4 or more addtl bridget PC ([id number]) Procedure: The study was attended continuously by a senior nuclear medicine technologist. The monitored parameters included: left (E1-M2) [...] Respirator (more content not included)... SLEEP LAB [facility] Orthopedic Visit Reporton Orthopedic Visit Report [facility] [address] [place] [address] OFFICE VISIT Date of Service: 12/09/24 MR#: [id number] Acct: [id number] Name: ALLIE LYNN Rep #: [id number] : 1970 Provider: Dr. Phillip Pretty so, DO Age/Sex: 54/F Location: [facility] Status: Signed Intake Vital Signs [...] QDAY 12/09/24 12/09/24 H istory omega-3 720 yf-iau-jlq-fish cap PO 12/09/24 12/09/24 History oil-vit D3 [...] Right Shoulde (more content not included)... Normal [facility] 12-07-2024 [facility] Normal [facility] 12-01-2024 [facility] Normal [facility] HIP, UNI W/ Pelvis 2-3 Views on 11-24-2024 HIP, UNI W/ Pelvis 2-3 Views [facility] Imaging Services [address] [place], [place] [address] HIP, UNI W/ Pelvis 2-3 Views MR#: [id number] Acct: [id number] Name: AAMIRALLIEDEANNA Rep #: [id number] : 1970 F 54 From: Danie Salvador MD PCP: Dr. Ifeoma Davis MD Status: DEP AMB Study: HIP, UNI W/ Pelvis 2-3 Views Date of Exam: Exam# [id number] Ordering Dr: Allie Prakash PROCEDURE: HIP, UNI [...] central to lateral joint space narrowing near qbis-ch-fanh contact. Lateral acetabular osteophyte formation and large femoral head osteophytes with buttressing. Right hip mild to moderate appearing osteoarthrosis with qnrz-sb-ysatjyqe lateral joint space narrowing and small osteophyte formation. No fracture or dislocation identified. RAD/HIP, UNI W/ Pelvis 2-3 Views IMPRESSION: Pesk-ikumpvb-smpb-rig ht appearing osteoarthrosis as described above with associated appearing left downward pelvic tilt. Reading Location: [facility] CC: Allie Prakash; Dr. Ifeoma Davis MD Receiving Supervisor: Signed Normal [facility] Hip Min 2 Views (Portable)on 11-24-2024 Hip Min 2 Views (Portable) [facility] Imaging Services [address] [place] [address] Hip Min 2 Views (Portable) MR#: [id number] Acct: [id number] Name: ALLIE LYNN ANN Rep #: [id number] : 1970 F 54 From: Laya Tay PCP: Dr. Ifeoma Davis MD Status: REG CLI Study: Hip Min 2 Views (Portable) Date of Exam: 11/24 Exam# [id number] Ordering Dr: Allie Prakash PROCEDURE: HIP MIN [...] of the left groin region. Reading Location: [facility] CC: Allie Prakash; Dr. Ifeoma Davis MD Receiving Supervisor: Signed Normal [facility] CNPNon 11-20-2024 CNPN Normal [facility] Basic metabolic 2000 panelon 11-19-2024 Anion gap [Moles/Vol] 14 mmol/L Normal 8-[address] [facility] Comment on above: Order Comment: Speci men Type: BLOOD SPECIMENOrdering Facility: [facility] Address: [address] [place] [address] Performed By: #### 2 4321-2 ####[facility] LABCLIA [id number] [place] [address] [place] Calcium [Mass/Vol] 9.7 mg/dL Normal 8.5-10.2 [facility] Comment on above: Order Comment: Speci men Type: BLOOD SPECIMENOrdering Facility: [facility] Address: [address] [place] [address] Performed By: #### 2 4321-2 ####[facility] LABCLIA [id number] [place] [address] [place] Chloride [Moles/Vol] 99 mmol/L Normal 98-107 [facility] Comment on above: Order Comment: Speci men Type: BLOOD SPECIMENOrdering Facility: [facility] Address: [address] [place] [address] Performed By: #### 2 4321-2 ####[facility] LABCLIA [id number] [place] [id number] [place] CO2 [Moles/Vol] 27 mmol/L Normal 22-30 [facility] Comment on above: Order Comment: Speci men Type: BLOOD SPECIMENOrdering Facility: [facility] Address: [address] [place], [place] [address] Performed By: #### 2 4321-2 ####[facility] LABCLIA [id number] [place] [id number] [place] Creatinine [Mass/Vol] 0.95 mg/dL Normal 0.58-0.[address] [facility] Comment on above: Order Comment: Brandan eaton Type: BLOOD SPECIMENOrdering Facility: [facility] Address: [address] [place] [address] Performed By: #### 2 4321-2 ####[facility] [id number] [address] OF [facility] Creatinine and Glomerular filtration rate.predicted panel (S/P/Bld) 71 mL/min/1.73m??? Normal >=60 [facility] Comment on above: Order Comment: Brandan eaton Type: BLOOD SPECIMENOrdering Facility: [facility] Address: [address] [place] [address] Result Comment: Zaria mated Glomerular Filtration Rate [...] actual GFR. Performed By: #### 2 4321-2 ####[facility] LABIA [id number] [place] [address] [place] Glucose [Mass/Vol] 73 mg/dL Low 74-99 [facility] Comment on above: Order Comment: Brandan eaton Type: BLOOD SPECIMENOrdering Facility: [facility] Address: [address] [place] [address] Result Comment: The [place] Diabetes Association (ADA) provides guidance for cutoff [...] Standards of Medical Care in Diabetes 2016, [place] [employer] Association. Diabetes Care. 2016.39(Suppl 1). Performed By: #### 2 4321-2 ####[facility] LABIA [id number] [place] [id number] [place] Potassium [Moles/Vol] 3.5 mmol/L Low 3.7-5.[address] [facility] Comment on above: Order Comment: Brandan eaton Type: BLOOD SPECIMENOrdering Facility: [facility] Address: [address] [place] [address] Performed By: #### 2 4321-2 ####[facility] LABIA [id number] [place] [id number] [place] Sodium [Moles/Vol] 140 mmol/L Normal 136-144 [facility] Comment on above: Order Comment: Brandan eaton Type: BLOOD SPECIMENOrdering Facility: [facility] Address: [address] [place] [address] Performed By: #### 2 4321-2 ####[facility] LABIA [id number] [place] [id number] [place] Urea nitrogen [Mass/Vol] 12 mg/dL Normal 7-21 [facility] Comment on above: Order Comment: Brandan eaton Type: BLOOD SPECIMENOrdering Facility: [facility] Address: [address] [place] [address] Performed By: #### 2 4321-2 ####[facility] LABIA [id number] [place] [id number] [place] CNOVon 11-19-2024 CNOV Normal [facility] CNOVon 11-17-2024 CNOV Office Visit (LDNESL ) AAMIRALLIE Bustos ([id number]) 1970 F [place] Date Time Provider Department 11/17/24 9:00 PM SLEEP LAB LODI BED 1 LDNESL During your visit today, we recorded the following information about you: Referring Provider: KIMBERLEY AMBROCIO [[id number]] Allergies As of Date: 11/17/2024 Noted Allergy [...] [G47.61] Primary hypertension [I10] Order(s):POLYSOMNOGRA M (PSG) [4445030] Order #: [id number]. #:[id number] Prescriptions as of 01/05/2025 - meloxicam (MOBIC) [...] daily. 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 Normal [facility] POLYSOMNOGRAM (PSG)/HOME SLE EP APNEA TEST (HSAT)on 11-17-2024 POLYSOMNOGRAM (PSG)/HOME SLEEP APNEA TEST (HSAT) Normal [facility] 25(OH)D3 [facility] 25-hydroxyvitamin D3 [Mass/Vol] 42.9 ng/mL Normal 31.0-80.0 [facility] Comment on above: Order Comment: Speci men Type: BLOOD SPECIMENOrdering Facility: [facility] Address: [address] [place] [address] Result Comment: Clas sification of 25 [place] Vitamin D status:Deficiency/Insufficiency: < or = 30 ng/ml.Sufficiency/Optimal Levels: 31-80 ng/mLToxicity: > 100 ng/mL.Test performed by chemiluminescent immunoassay. Performed By: #### 1 989-3 ####[facility] LABCLIA [id number] [place] [address] [place] CBC W Auto Differential pane l (Bld)on 11-03-2024 Basophils (Bld) [#/Vol] 0.03 10*3/uL [facility] Basophils/100 WBC (Bld) 0.6 % [facility] Differential cell count method Nom (Bld) Auto [facility] Eosinophils (Bld) [#/Vol] 0.2 10*3/uL [facility] Eosinophils/100 WBC (Bld) 3.7 % [facility] Erythrocyte distribution width (RBC) [Ratio] 14 % 11.5 - 15.0 % [facility] Hematocrit (Bld) [Volume fraction] 37.9 % 36.0 - 46.0 % [facility] Hemoglobin (Bld) [Mass/Vol] 12 g/dL 11.5 - 15.5 g/dL [facility] Immature granulocytes (Bld) [#/Vol] [facility] Immature granulocytes/100 WBC (Bld) 0.2 % [facility] Lymphocytes (Bld) [#/Vol] 1.2 10*3/uL [facility] Lymphocytes/100 WBC (Bld) 22.2 % [facility] MCH (RBC) [Entitic mass] 29.3 pg 26. 0 - 34.0 pg [facility] MCHC (RBC) [Mass/Vol] 31.7 g/dL 30.5 - 36.0 g/dL [facility] MCV (RBC) [Entitic vol] 92.4 fL 80.0 - 100.0 fL [facility] Monocytes (Bld) [#/Vol] 0.65 10*3/uL [facility] Monocytes/100 WBC (Bld) 12 % C [facility] Neutrophils (Bld) [#/Vol] 3.31 10*3/uL [facility] Neutrophils/100 WBC (Bld) 61.3 % [facility] Nucleated RBC (Bld) [#/Vol] NINF [facility] Nucleated RBC/100 WBC (Bld) [Ratio] 0 % /100 WBC [facility] Platelet mean volume (Bld) [Entitic vol] 11 fL 9.0 - 12.7 fL [facility] Platelets (Bld) [#/Vol] 334 10*3/uL [facility] RBC (Bld) [#/Vol] 4.1 10*6/uL 3.90 - 5.2 0 m/uL [facility] WBC (Bld) [#/Vol] 5.4 10*3/uL [facility] Basophils (Bld) [#/Vol] 0.03 10*3/uL Normal <0.11 [facility] Comment on above: Order Comment: Speci men Type: BLOOD SPECIMENOrdering Facility: [facility] Address: [address] [place] [address] Performed By: #### 5 7021-8 ####[facility] LABORATORYCLIA [id number] [address] STATES OF [facility] Basophils/100 WBC (Bld) 0.6 % Normal [facility] Comment on above: Order Comment: Speci men Type: BLOOD SPECIMENOrdering Facility: [facility] Address: [address] [place] [address] Performed By: #### 5 7021-8 ####[facility] LABORATORYCLIA [id number] [place] [address] [place] Differential cell count method Nom (Bld) Auto Normal [facility] Comment on above: Order Comment: Speci men Type: BLOOD SPECIMENOrdering Facility: [facility] Address: [address] [place] [address] Performed By: #### 5 7021-8 ####[facility] LABORATORYCLIA [id number] [address] [place] Eosinophils (Bld) [#/Vol] 0.20 10*3/uL Normal <0.46 [facility] Comment on above: Order Comment: Speci men Type: BLOOD SPECIMENOrdering Facility: [facility] Address: [address] [place] [address] Performed By: #### 5 7021-8 ####[facility] LABORATORYCLIA [id number] [address] [place] Eosinophils/100 WBC (Bld) 3.7 % Normal [facility] Comment on above: Order Comment: Speci men Type: BLOOD SPECIMENOrdering Facility: [facility] Address: [address] [place] [address] Performed By: #### 5 7021-8 ####[facility] LABORATORYCLIA [id number] [address] [place] Erythrocyte distribution width (RBC) [Ratio] 14.0 % Normal 11.5-15.0 [facility] Comment on above: Order Comment: Speci men Type: BLOOD SPECIMENOrdering Facility: [facility] Address: [address] [place] [address] Performed By: #### 5 7021-8 ####[facility] LABORATORYCLIA [id number] [address] [place] Hematocrit (Bld) [Volume fraction] 37.9 % Normal 36.0-46.0 [facility] Comment on above: Order Comment: Speci men Type: BLOOD SPECIMENOrdering Facility: [facility] Address: [address] [place] [address] Performed By: #### 5 7021-8 ####[facility] LABORATORYCLIA [id number] [address] [place] Hemoglobin (Bld) [Mass/Vol] 12.0 g/dL Normal 11.5-15.5 [facility] Comment on above: Order Comment: Speci men Type: BLOOD SPECIMENOrdering Facility: [facility] Address: [address] [place] [address] Performed By: #### 5 7021-8 ####[facility] LABORATORYCLIA [id number] [address] [place] Immature granulocytes (Bld) [#/Vol] 10*3/uL Normal <0.10 [facility] Comment on above: Order Comment: Speci men Type: BLOOD SPECIMENOrdering Facility: [facility] Address: [address] [place] [address] Performed By: #### 5 7021-8 ####[facility] LABORATORYCLIA [id number] [address] [place] Immature granulocytes/100 WBC (Bld) 0.2 % Normal [facility] Comment on above: Order Comment: Speci men Type: BLOOD SPECIMENOrdering Facility: [facility] Address: [address] [place] [address] Performed By: #### 5 7021-8 ####[facility] LABORATORYCLIA [id number] [address] [place] Lymphocytes (Bld) [#/Vol] 1.20 10*3/uL Normal 1.00-4.00 [facility] Comment on above: Order Comment: Speci men Type: BLOOD SPECIMENOrdering Facility: [facility] Address: [address] [place] [address] Performed By: #### 5 7021-8 ####[facility] LABORATORYCLIA [id number] [address] [place] Lymphocytes/100 WBC (Bld) 22.2 % Normal [facility] Comment on above: Order Comment: Speci men Type: BLOOD SPECIMENOrdering Facility: [facility] Address: [address] [place] [address] Performed By: #### 5 7021-8 ####[facility] LABORATORYCLIA [id number] [address] [place] MCH (RBC) [Entitic mass] 29.3 pg Normal 26.0-34.0 [facility] Comment on above: Order Comment: Speci men Type: BLOOD SPECIMENOrdering Facility: [facility] Address: [address] [place] [address] Performed By: #### 5 7021-8 ####[facility] LABORATORYCLIA [id number] [address] MCHC (RBC) [Mass/Vol] 31.7 g/dL Normal 30.5-36.[address] [facility] Comment on above: Order Comment: Speci men Type: BLOOD SPECIMENOrdering Facility: [facility] Address: [address] [place] [address] Performed By: #### 5 7021-8 ####[facility] LABORATORYCLIA [id number] [address] STATES [facility] MCV (RBC) [Entitic vol] 92.4 fL Normal 80.0-100.0 [facility] Comment on above: Order Comment: Speci men Type: BLOOD SPECIMENOrdering Facility: [facility] Address: [address] [place] [address] Performed By: #### 5 7021-8 ####[facility] LABORATORYCLIA [id number] [address] [place] Monocytes (Bld) [#/Vol] 0.65 10*3/uL Normal <0.87 [facility] Comment on above: Order Comment: Speci men Type: BLOOD SPECIMENOrdering Facility: [facility] Address: [address] [place] [address] Performed By: #### 5 7021-8 ####[facility] LABORATORYCLIA [id number] [address] STATES [facility] Monocytes/100 WBC (Bld) 12.0 % Normal [facility] Comment on above: Order Comment: Speci men Type: BLOOD SPECIMENOrdering Facility: [facility] Address: [address] [place] [address] Performed By: #### 5 7021-8 ####[facility] LABORATORYCLIA [id number] [address] [place] Neutrophils (Bld) [#/Vol] 3.31 10*3/uL Normal 1.45-7.50 [facility] Comment on above: Order Comment: Speci men Type: BLOOD SPECIMENOrdering Facility: [facility] Address: [address] [place] [address] Performed By: #### 5 7021-8 ####[facility] LABORATORYCLIA [id number] [place] [address] [place] Neutrophils/100 WBC (Bld) 61.3 % Normal [facility] Comment on above: Order Comment: Speci men Type: BLOOD SPECIMENOrdering Facility: [facility] Address: [address] [place] [address] Performed By: #### 5 7021-8 ####[facility] LABORATORYCLIA [id number] [place] [address] [place] Nucleated RBC (Bld) [#/Vol] 10*3/uL Normal <0.01 [facility] Comment on above: Order Comment: Speci men Type: BLOOD SPECIMENOrdering Facility: [facility] Address: [address] [place] [address] Performed By: #### 5 7021-8 ####[facility] LABORATORYCLIA [id number] [place] [address] [place] Nucleated RBC/100 WBC (Bld) [Ratio] 0.0 /100 WBC Normal [facility] Comment on above: Order Comment: Speci men Type: BLOOD SPECIMENOrdering Facility: [facility] Address: [address] [place] [address] Performed By: #### 5 7021-8 ####[facility] LABORATORYCLIA [id number] [place] [address] [place] Platelet mean volume (Bld) [Entitic vol] 11.0 fL Normal 9.0-12.7 [facility] Comment on above: Order Comment: Speci men Type: BLOOD SPECIMENOrdering Facility: [facility] Address: [address] [place] [address] Performed By: #### 5 7021-8 ####[facility] LABORATORYCLIA [id number] [place] [address] [place] Platelets (Bld) [#/Vol] 334 10*3/uL Normal 150-400 [facility] Comment on above: Order Comment: Speci men Type: BLOOD SPECIMENOrdering Facility: [facility] Address: [address] [place] [address] Performed By: #### 5 7021-8 ####[facility] LABORATORYCLIA [id number] [place] [address] [place] RBC (Bld) [#/Vol] 4.10 10*6/uL Normal 3.90-5.20 [facility] Comment on above: Order Comment: Speci men Type: BLOOD SPECIMENOrdering Facility: [facility] Address: [address] [place] [address] Performed By: #### 5 7021-8 ####[facility] LABORATORYCLIA [id number] [address] [place] WBC (Bld) [#/Vol] 5.40 10*3/uL Normal 3.70-11.00 [facility] Comment on above: Order Comment: Speci men Type: BLOOD SPECIMENOrdering Facility: [facility] Address: [address] [place] [address] Performed By: #### 5 7021-8 ####[facility] LABORATORYCLIA [id number] [place] [id number] [place] CNOVon 11-03-2024 CNOV Normal [facility] Ferritin SerPl-mCncon 2024 Ferritin [Mass/Vol] 29.7 ng/mL Normal 14.7-205.1 [facility] Comment on above: Order Comment: Speci men Type: BLOOD SPECIMENOrdering Facility: [facility] Address: [address] [place] [address] Performed By: #### 2 276-4, 3024-7, 90636-6, 3016-3 ####[facility] LABORATORYCLIA [id number] [place] [address] [place] Iron and Iron binding capaci ty panelon 11-03-2024 Iron [Mass/Vol] 93 ug/dL Normal 41-186 [facility] Comment on above: Order Comment: Speci men Type: BLOOD SPECIMENOrdering Facility: [facility] Address: [address] [place] [address] Performed By: #### 2 276-4, 3024-7, 75544-2, 3016-3 ####[facility] LABORATORYCLIA [id number] [place] [id number] [place] [facility] Iron binding capacity [Mass/Vol] 384 ug/dL Normal 232-386 [facility] Comment on above: Order Comment: Speci men Type: BLOOD SPECIMENOrdering Facility: [facility] Address: [address] [place] [address] Performed By: #### 2 276-4, 3024-7, 14306-6, 3016-3 ####[facility] CENTERCLIA [id number] [address] Iron saturation [Mass fraction] 24.2 % Normal 15.0-57.0 [facility] Comment on above: Order Comment: Speci men Type: BLOOD SPECIMENOrdering Facility: [facility] Address: [address] [place] [address] Performed By: #### 2 276-4, 3024-7, 53003-5, 3016-3 ####[facility] LABORATORYCLIA [id number] [place] [id number] [place] T4 Free SerPl-mCncon 025 Free T4 [Mass/Vol] 0.9 ng/dL Normal 0.9-1.7 [facility] Comment on above: Order Comment: Speci men Type: BLOOD SPECIMENOrdering Facility: [facility] Address: [address] [place] [address] Performed By: #### 2 276-4, 3024-7, 44293-2, 3016-3 ####[facility] LABORATORYCLIA [id number] [place] [id number] [place] TSH SerPl-aCncon 11-03-2024 TSH Qn 0.745 m[IU]/L Normal 0.270-4.200 [facility] Comment on above: Order Comment: Speci men Type: BLOOD SPECIMENOrdering Facility: [facility] Address: [address] [place] [address] Performed By: #### 2 276-4, 3024-7, 16183-4, 3016-3 ####[facility] [facility] LABORATORYCLIA [id number] [place] [address] [place] Vit B12 SerPl-mCncon 025 Cobalamin (Vitamin B12) [Mass/Vol] pg/mL High [id number] [facility] Comment on above: Order Comment: Speci men Type: BLOOD SPECIMENOrdering Facility: [facility] Address: [address] [place] [address] Performed By: #### 2 132-9 ####[facility] LABORATORYCLIA [id number] [place] [address] [place] Bacteria Ur Culton 5 Bacteria identified Cx Nom (U) ORGANISM ID: 1 <10,000 CFU/ml Lactose positive gram negative bacilli Insignificant colony count. No further workup. Normal [facility] Comment on above: Performed By: #### 6 30-4 ####[facility] LABCLIA [id number] [place] [address] [place] CNOVon 10-31-2024 CNOV Normal [facility] UA DIP, URINE (POC)on 2024 BILIRUBIN UA (POCT) Small Abnormal Negative [facility] CLARITY UA (POCT) Clear [facility] COLOR UA (POCT) Red [facility] GLUCOSE UA (POCT) 100 mg/dL Abnormal Negative [facility] Hemoglobin Ql (U) Large Abnormal Negative [facility] Interpretation and review of laboratory results Abnormal [facility] KETONE UA (POCT) Trace Negative mg/dL [facility] LEUKOCYTES UA (POCT) Large Abnormal Negative [facility] NITRITE UA (POCT) Positive Abnormal Negative [facility] PH UA (POCT) 6 4.5 - 8.0 [facility] Protein Ql (U) >=300 Abnormal Negative mg/dL [facility] SPECIFIC GRAVITY UA (POCT) 1.01 1.005 - 1.030 [facility] UROBILINOGEN UA (POCT) 2 Abnormal Carleen l E.U./dL [facility] Location:[facility], [address] [place] [address], [place], [address] [facility] POINT OF CARE [facility] GENOVEVA SCREENINGon 10-21-2024 [place] SCREENING Normal [facility] OCT MACULA CIRRUS OU (BOTH E YES)on 10-13-2024 [facility] Radiology Study observation (narrative) [facility] CNOVon 10-12-2024 CNOV Normal [facility] CNOVon 10-07-2024 CNOV Normal [facility] CNPNon 10-07-2024 CNPN Normal [facility] CNOVon 09-29-2024 CNOV Normal [facility] CNPNon 09-25-2024 CNPN Normal [facility] CNOVon 09-24-2024 CNOV Normal [facility] CNOVon 09-15-2024 CNOV Normal [facility] CNPNon 09-15-2024 CNPN Normal [facility] CNPNon 08-12-2024 CNPN Normal [facility] CNPTOUTREACHon 08-10-2024 CNPTOUTREACH Normal [facility] CNPNon 07-27-2024 CNPN Normal [facility] Cerv Spine 4 or 5 Viewson Cerv Spine 4 or 5 Views [facility] [address] [place] [address] Cerv Spine 4 or 5 Views MR#: [id number] Acct: [id number] Name: ALLIE LYNN ANN Rep #: [id number] : 1970 F 54 From: Henrik Cardona MD PCP: Dr. Ifeoma Davis MD Status: DEP AMB Study: Cerv Spine 4 or 5 Views Date of Exam: 07/15/24 Exam# [id number] Ordering Dr: Allie Prakash [id number] STUDY: X-RAY - CERVICAL SPINE REASON FOR [...] Electronically Signed: Henrik Cardona MD at 10:43 [facility] , CC: Allie Prakash; Dr. Ifeoma Davis MD Receiving Supervisor: Signed Normal [facility] US Carotid arteries - vinnie jeffrey 06-04-2024 Non-Invasive Vascular Laboratory [facility] Carotid Duplex Bilateral/Complete Date of service/time: 06/04/2024 [...] below for Image [facility] OCT MACULA CIRRUS OU (BOTH E YES)on 02-18-2024 [facility] Radiology Study observation (narrative) [facility] SURGICAL PATHOLOGYOrdered By : Rik De La Paz on 06-07-2023 Addendum c1kdnJGpHIMmaAJlYKXj M 1jevqLyGZUvtEDbT9Ryzr miHLgdBG7gWZ9cpGasyRG ipMJlRPZqBvCrf7kfd366 mERya8reUVGYDEgbPIGYY Kx3m6fyLKUCjmxlcCs2oR esL02nd8C8TkmsW1xhGJG wXGdyZWVuMFxibHVlMDt9 XHBhcGVydzEyMjQwXHBhc RIlpHZ4YALoTN1zgdkhEJ rlIKjtHHVlmxW9YYHkbOG sC4HoOWEmKW3njzghUMW9 XOgoJLSwPSY9KwNpHDFjx 7Ynbyw6CnZebASvOPiwiJ FpblxmMVxmczIwIEltbXV is8xvj3QbZ5xhhLliqLN9 IGZvciBILiBweWxvcmkga XMgbmVnYXRpdmUgKHBhcn QgQikuXHBhclxjZjFccGF tYMraRk5pZAVwczhlCEW2 CDitkRToZNMma1ImZLmHZ OorNEyxQ1mqtE0qgdegqV DbURKqqrEgjd7okmBgLNQ wJYHvH0NalthjrGkwwbAd OzUgbL15uy9kvZD4e1UfM U5mK1UpFRYisA00be4xkD ZzwhKzC4ChlQBbuhDdB0k gz06hP0HdmROwbR3rd1v5 vGFksSTgiJYnutT8aO4tN TChj8LnDRacldJqJzOqkl DrWNOqiq6dcsZcSNJ3NHM eHSXqHLFdb2OiiF4mXBwn Xm5sXONalopya3f1nYvwA ENsZXZlbGFuZCBDbGluaW GfuOrfFBozGHg0EdFoXt7 zNUX1SYfjTBRiyTqtR4mh DAR9eC7mk7k2NVKuGONCG TNysjU5z7K4IY4nNZqxeP 3uWKgwf0XusVT7BUNrQMD kdnLTAV7jaJDiMW1rgNd5 HVxmNCRnto3aNDqjnmCsT ZjgQA6koMj2ZFkeWNDji4 HaZSQxT0RenW3tTWztt1Y mcKAhUUUCYHIucKNMx2Hc tNTblWtkTV5brLKhJZGjn gAeIL2iXTtlRVenK9EztZ OeRKAWYNO4uO8uQOShaJJ kNR4tsaSaSAnhw0DeeKVc ZUFvdePGbvgmoyQIu2Hkr KMwfNxufS6tOLOpKC5zOJ XmG58te5cugQQmjFE5vSH dOLNTPCYsleHyrUpuCY2j paTeKtFMjnZdo4JvyS6yX DZaLbG7oLBrESN8YUD6bf EcCFHqLB1ajUUdOMIeLSM mDXDdLHYwd6RsFYEokn83 HUZnVmttzChcRDZVJD6hE pNpZFzWFFSjfhLiVVe6cJ K3DYSdhF9fGDWlA9aXIEC wilIngUIwdLSyWIOstT3l nXXgOc9jkSYpdPuiGFYbo XBsZXhpdHkgdGVzdGluZy 7wIVjwh8VkgSRsjRQwGEE oIOQlMDKhMw9hGVLgcI8o O6GiXRW2uzOyh7XuQnNMy EJ7DVVbi8YhAQKnc9QeVy UgcmVnYXJkZWQgYXMgaW5 1KZA2rGjfdEasjoGuCN2s KLRkfjEmUKZyNHOhcM5nF M6vrQPyxjGsKD8tXJ2lM2 Q8bKDdCIPyekOtx0vvOJQ 0YWluIGFwcHJvcHJpYXRl bHkuXHBhcn0= [facility] Work Phone: Case Report Surgical Pathology Report Case: [id number] Authorizing Provider: Andry Connelly MD Collected: 05/30/2023 01:16 PM Ordering Location: Ambulatory Surgery Received: 05/30/2023 09:01 PM Pathologist: Rik De La Paz MD Specimens: A) - DUODENUM BIOPSY, 2nd portion B) - ANTRUM (STOMACH) BIOPSY C) - STOMACH (GASTRIC) POLYP BIOPSY D) - RECTAL POLYP [facility] Work Phone: FINAL DIAGNOSIS i2mdyRYfBWAxnMLfOPLc M 7inlfBnBJLhcHMpV0Pxeo pbICqpSZ2tRL1hbSveiRC dfCIyEZBfPuIzd5vuz447 sSQku8ryCZOHpgsdpJg3p NemS48nb9O8SfemK19ltY QtFFO2IVPbXYTmhGYmPKZ dMUH4NLOvkEHpN0lpGPQa DA8rhdttTZsqWSruDQGpp PY5UUIgyDNkA0VsCSBfZZ shJAFynra4NcZhOt3feND yeTcyMFxwYXJkXHBsYWlu LBLrMpCoMZ4lXLZ2q7Nqc iByVIMxtD2ka9e4TMYsvl AtIFNtYWxsIGludGVzdGl rJUofcNMmz0BcTMcifUsz fm7tk0dlcayfhFPhhfEra QW3zZ0fg4hsZwEtOs7zgp 6ehGl7cG3zqUHhJFMoxaB BNaSbG2PcyITzhHbyKmre bOW1CosuZVQnYBNGdSwnK EBsqf4asQOwE5XmlUFugN lzLlxwYXJccGFyIEMuICB UnX5gZCCaESEye2h5vWFc eY7ecJmxsMMiIN5lCnAeB AfhAIwyKJ4rNUUxvPtiXu xwYXJccGFyIEQuICBSZWN 8bM6lMYWhkYqgMFO2d070 PfdhDTGbHHDOhGY0pMWkO SYoFH1cmGIzAYWwiq0= [facility] Work Phone: Gross Description n8sczWYkLDNjgSQFXVW9 M ETlYR0pjEnfpHo9fZpmAR QkvnO1vMVtZUmuo4ewMBU 4l2ilihGNKhgqAJKqCF6m KZmdMZGjQN8gYoRkDSAtM mYxXHBhcGVydzEyMjQwXH GlzKHxsGZ0WMWyPL4iodl uNPtiODmvCUOlchD4UTIx mJZzL7UtPSYjAH9svpyfJ XL3YQCYRxqwWn9mwXWhoI tcZjFcZmNoYXJzZXQwXGZ ktLlxYTSbXKs8tT6FYtre SKK5FAWCCmvyEosjjMqse 2VjdCBcXHNnIFxcaWQgNT EwMDAgXFxkYiBPVlIgIiA 2UhanDfz3LsWwYBp2KVdz EyAZSFb4WHS1RcFgCFs0X TkgXFxuaCBcXHQgMSBcXG MoAFtprkS3b7skZLVxoAT aQOX5BKkcx9frOSecYGF0 PRTvVcYwETVmIW4EItAnC HVwKiLwKoycReN9AMu4RC BPVlMgIiAgMzgwNjQwMjk aDFz1KAb1NYyZYuMiTKAp NumgUOFvXnL3MYd3PsVlW HQgMiBcXHNzIDMgXFxmbC JiIB0faWsgCBMtSQ8MGFQ sAXudJVKrEpGjBO6xLYJD HHKVUP8oMdwVEHXDDDf2x mNoXHBhciANClxwYXJkIA 9MPEPzHWosNGs3qbXgEKK hJpOoBHOrI43tm0AZw3Dj FS9EUXx4niGdcjdyyS0dL HJpbjAgDQpcZnMyMCBSZW XeuEWyVZSzlcAcl8UnHEa pbiBhcmUgbXVsdGlwbGUg oVdgQ6GrNY6yHUEgxfejg 30czJC8wZOpyMPfFSacge WiQXCnfcffjY5yPQBvLEP 4BYCtRyJ9ICIeIbGkcR4y DT82HOznbBNumTAtqQG3U JQsbA9vu78pOJJdu8OjlS ZqGdogKPLmWBujq4WtRIa lcGljWHNhMzAgDQpcZXBp Z92jk3HRc9Clr0yguTkps 3CleIWdEK6tkQEzYP9Gb1 ivBHOctKWyQPY5NXeyp3r yOTacIWO3DCAqIbLcDCTm CL2XUiUdBNBjVjGgHptjK cY0BIx3BBYVKnAoWaZxNz vmUiJgCUFaMQm4MKc9VTw TQoNrZQBrWqpbPGC2HTT8 YFn3FoXsRXQwGaGbUZHjZ UJeETekoGZtZC3swHhfKV RzTKCmZRL0BWLllBJAo9S xMDUgDQpcZnMyMiBCLiBB RwSMPK0uDLAMH12BK6vtN BQMP0GOHLnfWSIoSLgkkN FyZCANClxwbGFpblxsdHJ jaFxmczIyXGVwaWNOZXN0 JQ9dYJUWBglgbGZeOKNru BgxOSoymE5cDKRiNrApOQ OqE7uxDtVtVJ5PFWPtJqO uZtYmKUs8WDVibE0dOt1v lTJdrL4rIXRgNYM3drDoq CNqUSGtl4YfvUWeNGGcd5 X0XLAkc5D1EHMwC2zhDHe uqGzqQzF5veDhBcbxyGNg HjMpaBMcIqByB63gSQQcw JGtlGxns9YojYt1vFMdNU gaPQ9fYJPeJXBgAUJ3OU6 koDIaTJ8EJYAqMYenePnz WHNiMFxzYTMwXGVwaWNYc 2EzMCANClxlcGljTmVzdE VpXgH3KYPedDJkKNW5ZI7 yrVyyHTReBIp7YFvsXJZw R2LlG1DfRJaeEmTaGHxoT LPpFIUrTWbiMSUvF5GRPV YuIYT9SrT3FbBuBZd4JIk 9AG6XXdRxXOBmCZE1JBO2 UAYnDDi3IQheYM8QFTUsL uWlVEJ0Onk9TWT0Ton6CM brdTGcVZzhi6DiEdErNRC bVWbmpzA2PGSmxmZkk8Nk WIPlTBTeW2vtCyFfZQAKK suvlhCvMHRyXLKWG89GD0 aaEPmCN0BIIDLhQSXOVDb AMYKZL2YTSQqeLRPfZQwe cGFyZCANClxwbGFpblxsd HJjaFxmczIyXGVwaWNOZX I3HF8vFGBNBwpkoNWgBZW ysDhoAApaoA0bKTIpIzJx XDIuI2gvGsOnWA3DGEBkP xMxGdDzBEl4IILtoG5qXt 3klJXsyW3cvVGme64mECM kRVFbRQ7hQGVqtn4ijb45 pymlz69goUK6bVStaADdp XAgk3HkkT3tZAWuXpO9FC DkWxP0RUDbEsEkkN5dEL7 1TEliwFVhqHFpyVD8HSVr wP8qj14oLCLte8XteHDfY aXwuLSmBI4ZOMKaOTxniA ljWHNiMFxzYTMwXGVwaWN Tc3HcENKVKpubqDkkObHs dGSsWvT3NXYwuVWxQVV4F Y5bxVbhQZKzLTu9TNkuZD EyT0XnZ3MzAZxjHxAcKVv tJHTwYXAmXIncIGOrZ5VT MDBeILU0XzZ6PmKaLWf4K Ei1ZD6YXrQpSMOrDUO9WO c6RzXsEVe8PVvjJN2CRSN nRkKqSIJ4Awm9NLK5Tyz6 VIcwwKEnHEeam7YwDgMcI MZnVHldgvG1CJPbuxPxo2 EgBZWcYUOeK2ztNoFsBJV XXuoefgPaFPKqRFCOK8EO ERANJ3uCRAekKJGnDAzzw GFyZCANClxwbGFpblxsdH JjaFxmczIyXGVwaWNOZXN 3JA0hELXEUnimhIZwKQRv rIrrDQcemT0kXTJwXbWlI AOoK8ymLzYoWZ4YVFImGm BePyXnAJx2LDBfnD2hRo9 psMTmhG2toMHcl18aPKYf EWBtDT0tWJTxlghjh60nr VF8bZGmfGMeaKKbm1WjoG 3uXKUjFyZ4CHAqKeL0UIN jMPWpaI9nRN34MNentKSv nIRyiQL9AKLabZ5vx75tV RXqi1SldZDuDoKltXZxKI 0KXHNiMFxlcGljWHNiMCA MVuNpxHYhMM7TM7Ziv5Sx IPnvzBpcUOEtg38sqXVrZ d9siLPrKDX7PKJqDPPkrX NpZDBBqSnmeLLgAKu3LKO tXWSbnJahDUO5QS8xFHPd ZNIqwJEyALpjY4dvTXKbK WOsyVInXW7ZMMMcwzISRe tLIFNlcHRlbWJlciAyOSw qXuCpDpQjErF2JJHYKH3i zWToVO5GIOHskbNOFwbhL GNrYAUsfNKGl4YpGNMUUz nnaHahXyEioLHyPfW2UKL mhYPqYIH1KJ9yjHanUGFh K4YqJ0XkxxK7VOXfulBNO hutBOEeSY0KCEFoWtYhFT p9 [facility] Work Phone: Performing Lab d6ebwBPyBHXgjMGkXuRa M ZKyXNPdr6tzYHLcsTEwAu EwMzNcZnRuYmpcdWMxXGR bOiEaa9llr769wBOga6tk IDBwHaJ1xBQiJBHasCBpE 703UCIyTZjoo6hvi7PzRW FltCEat3E4EVXGulrfgOt 5zVtlV96vy6J4AiiwW9ww QUHuHPUqR5DzVY4fFYVfX ur9EJH6GAA4QGZwPPLlI3 JfSF8vDOCvtZBaMOj4p6n srXrcNDHuIIV2b5kqNFgb trTrLQ3zdu0siPn2c2dzx zEgRGVmYXVsdCBQYXJhZ3 BruSrcZi3whWv7zDgxTpf tZEI4Gye6YA8zxf21cew0 tKjzXSJcmbilUuJ8ZImkZ DSkhioqNRe0SXucORCjjH S0DTAgtSDeI3CbZVgmXX7 wfpd9MJT4UOoeIFHnVqN6 NDBcaGVhZGVyeTcyMFxmb 769PUT2VbIdTE6wM5Gng8 G3kF7ndAOoHUGxyYUuTjR yYLUdej0efXOuGGmjc7Cx MCP1mnB4iFJtcBXbCZZnF R42Upcjw8OzAxkzr2DvH8 6cqMD9PDdbt5pnKD4rRoJ 6duXvWVnvr4sqnF1kBbP7 BDiiEI7uXI8wEPEasX0yb mxjXHBnYnJkcmhlYWRccG yvnwFnLb3zmBskDDG3ACl mE2jimG7lDuC6OHazQ5rj oL9qZOq5XYncuGG7QVTxp Z3lRV5gkztiq7asEUioHS hnWIJqzpG7bjToHGOfqMK qI5FmqN2gYZXaHD1xlvzj t9ewQAK5UGmpJXVdIGH9P bAvYCTkv2Enqkp3GnPdk4 MmhKLpFNsmB04gd481BBN grjGaE0itkUWrkujseFCu xijhCOdqtmR9ZYDkARJdZ WluXGYxXGZzMjJcbGFuZz EwMzNcaGljaFxmMVxkYmN dYFBsPWvjQ6ivSiHzSwSe InNXcPHruy5lxCqxTIyen BThgCWcbUU2iL5kOJEicg Cmxf5dEGInvDCVtZP0XQp eauJjO6grfaaiDEW2AUFn HPJ1M6juSBOVbdPqHTRhX RJqwOAeQKNVFZO9SJY9HD IdPXNLKMVeXDE7SNE6ITU wOTRccGFyXHBhclxwYXJk XHBsYWluXGYwXGZzMjRcc ItocD5lPjCqNsWiHvolJT 0uIAXeX0gfsSMnLREyQDZ lL4dyBwByyF6caVliMVon ZjJcZnMyMlxsdHJjaCBMY EOoaiP0u8V1CGjtxXAkgj xmMVxmczIyXGxhbmcxMDM nYJcaB4kaJpYzDPRjxBaf YSkcy8CyFXOsFVTlKgWnY HwuNEV4g2D9JKtjsYKega POPfMODG6ahXGfoxfuJS2 ELlxwYXJ9 [facility] Work Phone: [facility] Work Phone: EGD Study observation Narrat ketan 06-01-2023 [facility] Gastrointestinal Endoscopy Patient Name: Allie Lynn Procedure Date: 05/30/2023 1:05 PM Date of : 1970 Admit Type: Outpatient Age: 53 Room: [place] [address] Gender: Female Note Status: Finalized Attending MD: [...] previously scheduled. Procedure Code(s): --- Professional --- 00327, Esophagogastroduodeno scopy, flexible, transoral; with biopsy, single or multiple CPT copyright 2020 [employer]. All rights reserved. The codes documented in this report are preliminary and upon change management coordinator review may be revised to meet current compliance requirements. (more content not included)... PROVATION [facility] Flexible sigmoidoscopy study on 06-01-2023 [facility] G[facility] Patient Name: Allie Lynn Procedure Date: 05/30/2023 1:05 PM Date of : 1970 Admit Type: Outpatient Age: 53 Room: [place] [address] Gender: Female Note Status: Finalized Attending MD: [...] antiplatelet agents. Procedure Code(s): --- Professional --- 27045, Colonoscopy, flexible; with biopsy, single or multiple CPT copyright 2020 [employer]. All rights reserved. The codes documented in this report are preliminary and upon change management coordinator review may be revised to meet current compliance requirements. Attending Participation: I personally performed the entire procedure. Scope In: 1:23:39 PM Scope Out: 1:33:56 PM MD Andry Martin MD 05/30/2023 1:42:21 PM This report has been signed electronically by Andry Connelly MD Number of Addenda: 0 Note Initiated On: 05/30/2023 1:05 PM Estimated Blood Loss: Estimated blood loss was minimal. PROVATION [facility] EGD Study observation Narrat iveon 05-30-2023 Radiology Study observation (narrative) [facility] Flexible sigmoidoscopy study on 05-30-2023 Radiology Study observation (narrative) [facility] Basic metabolic 2000 panelon 05-22-2023 Anion gap [Moles/Vol] 10 mmol/L 9 - 18 mmol/L [facility] Calcium [Mass/Vol] 9.8 mg/dL 8.5 - 10. 2 mg/dL [facility] Chloride [Moles/Vol] 101 mmol/L 97 - 10 5 mmol/L [facility] CO2 [Moles/Vol] 25 mmol/L 22 - 30 mmol/L [facility] Creatinine [Mass/Vol] 0.86 mg/dL 0.58 - 0.96 mg/dL [facility] Estimated Glomerular Filtration Rate 80 mL/min/1.73m >=60 mL/min/1.73m [facility] Glucose [Mass/Vol] 79 mg/dL 74 - 99 mg/dL [facility] Potassium [Moles/Vol] 4.1 mmol/L 3.7 - 5.1 mmol/L [facility] Sodium [Moles/Vol] 136 mmol/L 136 - 144 mmol/L [facility] Urea nitrogen [Mass/Vol] 18 mg/dL 7 - 21 mg/d L [facility] URIC ACID BLOODon 05-22-2023 Urate [Mass/Vol] 3.6 mg/dL 2.5 - 6.6 mg/dL [facility] ANES POSTPROC EVALon 023 ANES POSTPROC EVAL HNO ID: [id number] Author: Mary Kline MD Service: Anesthesiology Author Type: Anesthesiologist Type: Anesthesia Postprocedure Evaluation Filed: 11/07/2022 12:01 PM Note Text: POST ANESTHESIA EVALUATION NOTE : 1970 Procedure Summary Date: 11/07/22 Room / [place]: [place] Anesthesia Start: 948 Anesthesia Stop: 1024 [...] November 07, 2022 TIME: 12:01 PM CSN: [id number] [facility] ANES PRE-OPon 11-07-2022 ANES PRE-OP HNO ID: [id number] Author: Mary Kline MD Service: Anesthesiology Author Type: Anesthesiologist Type: Anesthesia Preprocedure Evaluation Filed: 11/07/2022 9:04 AM Note Text: ANESTHESIOLOGY DAY OF SURGERY NOTE : 1970 Procedure Information Date/Time: 11/07/22 0955 Procedure: RELEASE TRIGGER FINGER - RIGHT RING AND LEFT MIDDLE FINGERS (Bilateral: Finger) [place]: [place]02 [place] Surgeons: Massimo Roberts MD Estimated body [...] November 07, 2022 TIME: 9:04 AM CSN: [id number] [facility] HISTORY PHYSICALon 3 HISTORY PHYSICAL HNO ID: [id number] Author: Taina Fan PA-C Service: Orthopaedic Surgery Author Type: Physician Shipping Clerk Crating Type: HANDP Filed: 11/07/2022 9:27 AM Note Text: Massimo Roberts MD Department of Orthopaedics Orthopaedics [address] [place] [address] Dept: [phone] Dept October 01, 2022 CHIEF COMPLAINT: Established [...] EXTRACAP,INSERT LENS Right 06/25/2022 S BALLOON,UTERINE ABLATION [id number] Medications: CURRENT MEDICATIONS Current Outpatient Medications Medication [...] Psych (no depression, anxiety) Massimo Roberts MD [facility] OPERATIVE NOon 11-07-2022 OPERATIVE NO HNO ID: [id number] Author: Massimo Roberts MD Service: Orthopaedic Surgery Author Type: Physician Type: Operative Report Filed: 11/07/2022 10:43 AM Note Text: OPERATIVE/PROCEDURE REPORT LOG ID: [id number] SURGERY/PROCEDURE DATE: 11/07/2022 INCISION/PROCEDURE START TIME: 10:01 AM INCISION CLOSE/PROCEDURE END TIME: 10:19 AM SURGEON(S)/PROCEDURAL IST(S) AND TEAM GUIDE(S): Surgeon(s) and Role: * Massimo Roberts MD - Primary Physician Shipping Clerk Crating: Taina Fan PA-C Registered Nurse Sandstone Splitter: Marnie Freitas RN SURGERY/PROCEDURE(S): Right, ring finger [...] DATE: November 07, 2022 TIME: 10:38 AM [facility] CNTHERAPYon 10-31-2022 CNTHERAPY OT/PT/Speech Visit (OTNOCA) AAMIRALLIE ([id number]) 1970 F LV Date Time Provider Department 10/31/22 9:45 AM MICHELLE PEREZ OTNOCA Date Time Provider Department Center 10/31/2022 9:45 AM [id number], REBECCA*[facility] Reason for Visit: Occupational Therapy [504] [...] DELIA Rosario [facility] GENOVEVA Wynn LILLY RTon 023 [facility] US BREAST LTD RTon 3 [facility] CNTHERAPYon 10-17-2022 CNTHERAPY OT/PT/Speech Visit (OTNOCA) ALLIE LYNN ([id number]) 1970 F RACHEL Date Time Provider Department 10/17/22 10:45 AM MICHELLE PEREZ Date Time Provider Department Center 10/17/2022 10:45 AM [id number], REBECCA*[facility] Reason for Visit: [...] DELIA Rosario [facility] XR SHOULDER [id number] AP/SYLVIA E AP RIGHTon 10-09-2022 [facility] XR HAND GENERAL 3V PA/LAT/OB L BILATERALon 10-01-2022 [facility] GENOVEVA SCREENINGon 09-27-2022 [facility] CNTHERAPYon 09-19-2022 CNTHERAPY OT/PT/Speech Visit (OTNOCA) LALIE LYNN ([id number]) 1970 F [place] Date Time Provider Department 09/19/22 12:30 PM MICHELLE PEREZ Date Time Provider Department Center 09/19/2022 12:30 PM [id number], REBECCA[facility] Reason for Visit: [...] DELIA Rosario [facility] ANES POSTPROC EVALon --2 022 ANES POSTPROC EVAL HNO ID: [id number] Author: Florencio De La Fuente MD Service: Anesthesiology Author Type: Anesthesiologist Type: Anesthesia Postprocedure Evaluation Filed: 06/25/2022 12:00 PM Note Text: POST ANESTHESIA EVALUATION NOTE : 1970 Procedure Summary Date: 06/25/22 Room / Location: [facility] / [facility] Anesthesia Start: 957 Anesthesia [...] June 25, 2022 TIME: 12:00 PM CSN: [id number] [facility] ANES PRE-OPon 06-25-2022 ANES PRE-OP HNO ID: [id number] Author: Florencio De La Fuente MD Service: [...] W/INTRAOCULAR LENS POWER CALCULATION (Right: Eye) Location: [place] [address] / [facility] Surgeons: Jonathon Eugene MD [...] June 25, 2022 TIME: 9:57 AM CSN: [id number] [facility] HISTORY PHYSICALon HISTORY PHYSICAL HNO ID: [id number] Author: Jonathon Eugene MD Service: Ophthalmology Author [...] DATE: June 25, 2022 TIME: 10:02 AM [facility] OPERATIVE NOon 06-25-2022 OPERATIVE NO HNO ID: [id number] Author: Jonathon Eugene MD Service: Ophthalmology Author Type: Physician Type: Operative Report Filed: 06/25/2022 11:35 AM Note Text: OPERATIVE/PROCEDURE REPORT OPHTHAMOLOGY LOG ID: [id number] SURGERY/PROCEDURE DATE: 06/25/2022 INCISION/PROCEDURE START TIME: 10:13 AM INCISION CLOSE/PROCEDURE END TIME: 11:27 AM SURGEON(S)/PROCEDURAL IST(S) AND TEAM GUIDE(S): Surgeon(s) and Role: * Jonathon Eugene MD [...] Implant Name Type Inv. Item Serial No. Business Services Sales Representative Lot No. [id number] No. Used Action Model No. LENS ACRYSOF ULTRASERT +14.5 DIOPTER ACRYLIC IOL 1 PIECE FOLDABLE UV BLUE - [id number] Intraocular Lens LENS ACRYSOF ULTRASERT +14.5 DIOPTER ACRYLIC IOL 1 PIECE FOLDABLE UV BLUE [id number] [employer] Right 1 Implanted [id number] Ocular Co-Morbidities: Yes Intra-operative Complications None I/primary surgeon/proceduralist performed the entire procedure. SIGNATURE: Jonathon Eugene MD PATIENT NAME: Allie Lynn DATE: June 25, 2022 TIME: 11:31 AM PAGER/CONTACT #: [phone] [facility] ESR Westergren method (Bld) [Velocity]on 05-04-2022 ESR (Bld) [Velocity] 10 mm/h 0 - 20 mm/hr [facility] C-REACTIVE PROTEIN (CRP)on 0 05-03-2022 CRP [Mass/Vol] <0.9 mg/dL [facility] RHEUMATOID FACTOR BLon 05-03 Rheumatoid factor Qn <16 IU/mL [facility] No Panel Information [facility] Vital Signs Date Time Vital Sign Value Performing Clinician Faci lity 07-10-2025 17:18-0500 Body temperature 98 [degF] Dr. Ifeoma Davis MD Work Phone: [facility] 07-10-2025 17:18-0500 Diastolic blood pressure 57 mm[Hg] Dr. Ifeoma Davis MD Work Phone: [facility] 07-10-2025 17:18-0500 Heart rate 79 /min Dr. Ifeoma Davis MD Work Phone: [facility] 07-10-2025 17:18-0500 Respiratory rate 18 /min Dr. Ifeoma Davis MD Work Phone: [facility] 07-10-2025 17:18-0500 SaO2% (BldA) [Mass fraction] 100 % Dr. Ifeoma Davis MD Work Phone: 2(087)449-815699 [place] [address] 07-10-2025 17:18-0500 Systolic blood pressure 112 mm[Hg] Dr. Ifeoma Davis MD Work Phone: 4(849)200-122099 [place] [address] 07-10-2025 14:53-0500 Body height 154.[address] Ifeoma Davis MD Work Phone: 1(196)281-676099 [place] [address] 06-29-2025 06:00-0400 Respiratory rate 16 /min Dr. Ifeoma Davis MD Work Phone: 7(016)635-208199 [place] [address] 06-29-2025 05:17-0400 Body temperature 98.1 [degF] Dr. Ifeoma Davis MD Work Phone: 4(093)084-648699 [place] [address] 06-29-2025 05:17-0400 Diastolic blood pressure 58 mm[Hg] Dr. Ifeoma Davis MD Work Phone: 7(169)313-807199 [place] [address] 06-29-2025 05:17-0400 Heart rate 68 /min Dr. Ifeoma Davis MD Work Phone: 5(684)093-384699 [place] [address] 06-29-2025 05:17-0400 SaO2% (BldA) [Mass fraction] 99 % Dr. Ifeoma Davis MD Work Phone: 4(647)349-831699 [place] [address] 06-29-2025 05:17-0400 Systolic blood pressure 108 mm[Hg] Dr. Ifeoma Davis MD Work Phone: 4(011)047-544199 [place] [address] 06-29-2025 02:44-0400 Body height 154.[address] Ifeoma Davis MD Work Phone: 6(658)273-131599 [place] [address] 06-29-2025 02:44-0400 Body mass index (BMI) [Ratio] 28.4 kg/m2 Dr. Ifeoma Davis MD Work Phone: 0(264)981-930099 [place] [address] 06-29-2025 02:44-0400 Body weight 68.[address] Ifeoma Davis MD Work Phone: 5(469)504-744599 [place] [address] 06-23-2025 21:14-0400 Body temperature 97.8 [degF] Dr. Ifeoma Davis MD Work Phone: 1(196)917-988399 [place] [address] 06-23-2025 21:14-0400 Diastolic blood pressure 62 mm[Hg] Dr. Ifeoma Davis MD Work Phone: 0(518)887-062099 [place] [address] 06-23-2025 21:14-0400 Heart rate 78 /min Dr. Ifeoma Davis MD Work Phone: 5(536)780-504899 [place] [address] 06-23-2025 21:14-0400 Respiratory rate 16 /min Dr. Ifeoma Davis MD Work Phone: 2(809)797-734299 [place] [address] 06-23-2025 21:14-0400 SaO2% (BldA) [Mass fraction] 98 % Dr. Ifeoma Davis MD Work Phone: 7(784)629-012499 [place] [address] 06-23-2025 21:14-0400 Systolic blood pressure 126 mm[Hg] Dr. Ifeoma Davis MD Work Phone: 2(053)660-913299 [place] [address] 06-23-2025 17:25-0400 Body mass index (BMI) [Ratio] 29 kg/m2 Dr. Ifeoma Davis MD Work Phone: 7(239)463-012499 [place] [address] 06-23-2025 17:25-0400 Body weight 69.[address] Ifeoma Davis MD Work Phone: 6(479)145-242899 [place] [address] 06-17-2025 19:44-0400 Body temperature 98 [degF] Dr. Ifeoma Davis MD Work Phone: 1(426)245-402999 [place] [address] 06-17-2025 19:44-0400 Diastolic blood pressure 72 mm[Hg] Dr. Ifeoma Davis MD Work Phone: 4(313)564-706499 [place] [address] 06-17-2025 19:44-0400 Heart rate 70 /min Dr. Ifeoma Davis MD Work Phone: 0(174)390-634799 [place] [address] 06-17-2025 19:44-0400 Respiratory rate 18 /min Dr. Ifeoma Davis MD Work Phone: 4(623)304-716399 [place] [address] 06-17-2025 19:44-0400 SaO2% (BldA) [Mass fraction] 100 % Dr. Ifeoma Davis MD Work Phone: 8(383)901-370699 [place] [address] 06-17-2025 19:44-0400 Systolic blood pressure 157 mm[Hg] Dr. Ifeoma Davis MD Work Phone: 1(181)461-800199 [place] [address] 06-17-2025 17:55-0400 Body mass index (BMI) [Ratio] 25.7 kg/m2 Dr. Ifeoma Davis MD Work Phone: 3(325)068-559299 [place] [address] 06-17-2025 17:55-0400 Body weight 61.[address] Ifeoma Davis MD Work Phone: 2(489)083-066799 [place] [address] 06-03-2025 15:26-0400 Body height 154.[address] Ifeoma Davis MD Work Phone: 5(967)305-564299 [place] [address] 06-03-2025 15:26-0400 Body mass index (BMI) [Ratio] 27 kg/m2 Dr. Ifeoma Davis MD Work Phone: 9(993)717-482799 [place] [address] 06-03-2025 15:26-0400 Body weight 64.[address] Ifeoma Davis MD Work Phone: 1(254)354-306199 [place] [address] 05-27-2025 19:22-0400 Body temperature 98 [degF] Dr. Ifeoma Davis MD Work Phone: 2(330)106-984199 [place] [address] 05-27-2025 19:22-0400 Diastolic blood pressure 69 mm[Hg] Dr. Ifeoma Davis MD Work Phone: 2(444)760-537799 [place] [address] 05-27-2025 19:22-0400 Heart rate 72 /min Dr. Ifeoma Davis MD Work Phone: 0(198)150-019999 [place] [address] 05-27-2025 19:22-0400 Respiratory rate 16 /min Dr. Ifeoma Davis MD Work Phone: 6(223)775-646899 [place] [address] 05-27-2025 19:22-0400 SaO2% (BldA) [Mass fraction] 100 % Dr. Ifeoma Davis MD Work Phone: [facility] 05-27-2025 19:22-0400 Systolic blood pressure 116 mm[Hg] Dr. Ifeoma Davis MD Work Phone: [facility] 05-27-2025 17:07-0400 Body height 154.[address] Ifeoma Davis MD Work Phone: [facility] 05-27-2025 17:07-0400 Body mass index (BMI) [Ratio] 27.6 kg/m2 Dr. Ifeoma Davis MD Work Phone: [facility] 05-27-2025 17:07-0400 Body weight 66.[address] Ifeoma Davis MD Work Phone: [facility] 04-22-2025 10:29-0400 Body mass index (BMI) [Ratio] 27.7 kg/m2 Ifeoma Davis MD Work Phone: [facility] 04-22-2025 10:29-0400 Body weight 66.5 kg Ifeoma Davis MD Work Phone: [facility] 04-22-2025 10:29-0400 Diastolic blood pressure 79 mm[Hg] Ifeoma Davis MD Work Phone: [facility] 04-22-2025 10:29-0400 Heart rate 79 /min Ifeoma Davis MD Work Phone: [facility] 04-22-2025 10:29-0400 Respiratory rate 16 /min Ifeoma Davis MD Work Phone: [facility] 04-22-2025 10:29-0400 Systolic blood pressure 129 mm[Hg] Ifeoma Davis MD Work Phone: [facility] 04-11-2025 13:09-0400 Body mass index (BMI) [Ratio] 27.53 kg/m2 Aislinn Reyes PA-C Work Phone: [facility] 04-11-2025 13:09-0400 Body temperature 97.2 [degF] Aislinn Reyes PA-C Work Phone: [facility] 04-11-2025 13:09-0400 Body weight 66.1 kg Aislinn Reyes PA-C Work Phone: [facility] 04-11-2025 13:09-0400 Diastolic blood pressure 62 mm[Hg] Aislinn Reyes PA-C Work Phone: [facility] 04-11-2025 13:09-0400 Heart rate 82 /min Aislinn Reyes PA-C Work Phone: [facility] 04-11-2025 13:09-0400 Respiratory rate 20 /min Aislinn Reyes PA-C Work Phone: [facility] 04-11-2025 13:09-0400 SaO2% (BldA) [Mass fraction] 98 % Aislinn Reyes PA-C Work Phone: [facility] 04-11-2025 13:09-0400 Systolic blood pressure 110 mm[Hg] Aislinn Reyes PA-C Work Phone: [facility] 03-24-2025 14:59-0400 Body height 154.9 cm Pacc 1 Work Phone: [facility] 03-24-2025 14:59-0400 Body mass index (BMI) [Ratio] 27.78 kg/m2 Pacc 1 Work Phone: [facility] 03-24-2025 14:59-0400 Body weight 66.68 kg Pacc 1 Work Phone: [facility] 03-24-2025 14:59-0400 Diastolic blood pressure 66 mm[Hg] Pacc 1 Work Phone: [facility] 03-24-2025 14:59-0400 Heart rate 80 /min Pacc 1 Work Phone: [facility] 03-24-2025 14:59-0400 Respiratory rate 18 /min Pacc 1 Work Phone: [facility] 03-24-2025 14:59-0400 SaO2% (BldA) [Mass fraction] 96 % Pacc 1 Work Phone: [facility] 03-24-2025 14:59-0400 Systolic blood pressure 108 mm[Hg] Pac 1 Work Phone: [facility] 12-29-2024 15:08-0400 Body height 154.9 cm Ifeoma Davis MD Work Phone: [facility] 12-29-2024 15:08-0400 Body mass index (BMI) [Ratio] 27.66 kg/m2 Ifeoma Davis MD Work Phone: [facility] 12-29-2024 15:08-0400 Body weight 66.41 kg Ifeoma Davis MD Work Phone: [facility] 12-29-2024 15:08-0400 Diastolic blood pressure 66 mm[Hg] Ifeoma Davis MD Work Phone: [facility] 12-29-2024 15:08-0400 Heart rate 86 /min Ifeoma Davis MD Work Phone: [facility] 12-29-2024 15:08-0400 SaO2% (BldA) [Mass fraction] 97 % Ifeoma Davis MD Work Phone: [facility] 12-29-2024 15:08-0400 Systolic blood pressure 112 mm[Hg] Ifeoma Davis MD Work Phone: [facility] 12-09-2024 13:28-0400 Body height 152.[address] Ifeoma Davis MD Work Phone: [facility] 12-09-2024 13:28-0400 Body mass index (BMI) [Ratio] 29.5 kg/m2 Dr. Ifeoma Davis MD Work Phone: 9(789)254-270537 [place] [address] 12-09-2024 13:28-0400 Body weight 68.[address] Ifeoma Davis MD Work Phone: 6(685)599-663537 [place] [address] 11-24-2024 15:06-0400 Body height 152.[address] Ifeoma Davis MD Work Phone: 9(566)855-012337 [place] [address] 11-03-2024 14:09-0500 Body height 154.9 cm Ifeoma Davis MD Work Phone: [facility] 11-03-2024 14:09-0500 Body mass index (BMI) [Ratio] 29.25 kg/m2 Ifeoma Davis MD Work Phone: [facility] 11-03-2024 14:09-0500 Body weight 70.22 kg Ifeoma Davis MD Work Phone: [facility] 11-03-2024 14:09-0500 Diastolic blood pressure 78 mm[Hg] Ifeoma Davis MD Work Phone: [facility] 11-03-2024 14:09-0500 Heart rate 98 /min Ifeoma Davis MD Work Phone: [facility] 11-03-2024 14:09-0500 SaO2% (BldA) [Mass fraction] 96 % Ifeoma Davis MD Work Phone: [facility] 11-03-2024 14:09-0500 Systolic blood pressure 114 mm[Hg] Ifeoma Davis MD Work Phone: [facility] 10-31-2024 12:58-0500 Body mass index (BMI) [Ratio] 28.74 kg/m2 Chantal Pino APRN.MOLECULAR SPECTROSCOPIST Work Phone: [facility] 10-31-2024 12:58-0500 Body temperature 97.11 [degF] Chantal Pino ROCK CRUSHER.MOLECULAR SPECTROSCOPIST Work Phone: [facility] 10-31-2024 12:58-0500 Body weight 69 kg Chantal Alvarez ROCK CRUSHER.MOLECULAR SPECTROSCOPIST Work Phone: [facility] 10-31-2024 12:58-0500 Diastolic blood pressure 88 mm[Hg] Chantal Pino ROCK CRUSHER.MOLECULAR SPECTROSCOPIST Work Phone: [facility] 10-31-2024 12:58-0500 Heart rate 97 /min Chantal Pino ROCK CRUSHER.MOLECULAR SPECTROSCOPIST Work Phone: [facility] 10-31-2024 12:58-0500 Respiratory rate 18 /min Chantal Alvarez ROCK CRUSHER.MOLECULAR SPECTROSCOPIST Work Phone: [facility] 10-31-2024 12:58-0500 SaO2% (BldA) [Mass fraction] 99 % Chantal Pino ROCK CRUSHER.MOLECULAR SPECTROSCOPIST Work Phone: [facility] 10-31-2024 12:58-0500 Systolic blood pressure 141 mm[Hg] Chantal Pino ROCK CRUSHER.MOLECULAR SPECTROSCOPIST Work Phone: [facility] 10-12-2024 15:14-0500 Body mass index (BMI) [Ratio] 29.78 kg/m2 Ifeoma Davis MD Work Phone: [facility] 10-12-2024 15:14-0500 Body temperature 96.91 [degF] Ifeoma Davis MD Work Phone: [facility] 10-12-2024 15:14-0500 Body weight 71.49 kg Ifeoma Davis MD Work Phone: [facility] 10-12-2024 15:14-0500 Diastolic blood pressure 63 mm[Hg] Ifeoma Davis MD Work Phone: [facility] 10-12-2024 15:14-0500 Heart rate 118 /min Ifeoma Davis MD Work Phone: [facility] 10-12-2024 15:14-0500 Respiratory rate 16 /min Ifeoma Davis MD Work Phone: [facility] 10-12-2024 15:14-0500 SaO2% (BldA) [Mass fraction] 99 % Ifeoma Davis MD Work Phone: [facility] 10-12-2024 15:14-0500 Systolic blood pressure 106 mm[Hg] Ifeoma Davis MD Work Phone: [facility] 10-07-2024 18:25-0500 Body mass index (BMI) [Ratio] 30.41 kg/m2 Calli Duvall ROCK CRUSHER.MOLECULAR SPECTROSCOPIST Work Phone: [facility] 10-07-2024 18:25-0500 Body temperature 98.2 [degF] Calli Zabrina ROCK CRUSHER.MOLECULAR SPECTROSCOPIST Work Phone: [facility] 10-07-2024 18:25-0500 Body weight 73 kg Calli Zabrina ROCK CRUSHER.MOLECULAR SPECTROSCOPIST Work Phone: [facility] 10-07-2024 18:25-0500 Diastolic blood pressure 62 mm[Hg] Calli Zabrina ROCK CRUSHER.MOLECULAR SPECTROSCOPIST Work Phone: [facility] 10-07-2024 18:25-0500 Heart rate 103 /min Calli Zabrina ROCK CRUSHER.MOLECULAR SPECTROSCOPIST Work Phone: [facility] 10-07-2024 18:25-0500 Respiratory rate 16 /min [facility] Zabrina ROCK CRUSHER.MOLECULAR SPECTROSCOPIST Work Phone: [facility] 10-07-2024 18:25-0500 SaO2% (BldA) [Mass fraction] 96 % [facility] Zabrina ROCK CRUSHER.MOLECULAR SPECTROSCOPIST Work Phone: [facility] 10-07-2024 18:25-0500 Systolic blood pressure 124 mm[Hg] Calli Zabrina ROCK CRUSHER.MOLECULAR SPECTROSCOPIST Work Phone: [facility] 09-29-2024 14:11-0500 Body mass index (BMI) [Ratio] 30.42 kg/m2 Ifeoma Davis MD Work Phone: [facility] 09-29-2024 14:11-0500 Body weight 73.03 kg Ifeoma Davis MD Work Phone: [facility] 09-29-2024 14:11-0500 Diastolic blood pressure 88 mm[Hg] Ifeoma Davis MD Work Phone: [facility] 09-29-2024 14:11-0500 Heart rate 86 /min Ifeoma Davis MD Work Phone: [facility] 09-29-2024 14:11-0500 Respiratory rate 16 /min Ifeoma Davis MD Work Phone: [facility] 09-29-2024 14:11-0500 Systolic blood pressure 138 mm[Hg] Ifeoma Davis MD Work Phone: [facility] 09-24-2024 14:43-0500 Body mass index (BMI) [Ratio] 30.27 kg/m2 Michelle Elsy ROCK CRUSHER.MOLECULAR SPECTROSCOPIST Work Phone: [facility] 09-24-2024 14:43-0500 Body weight 72.67 kg Michelle Elsy ROCK CRUSHER.MOLECULAR SPECTROSCOPIST Work Phone: [facility] 09-24-2024 14:43-0500 Diastolic blood pressure 81 mm[Hg] Michelle Elsy ROCK CRUSHER.MOLECULAR SPECTROSCOPIST Work Phone: [facility] 09-24-2024 14:43-0500 Heart rate 101 /min Michelle Elsy ROCK CRUSHER.MOLECULAR SPECTROSCOPIST Work Phone: [facility] 09-24-2024 14:43-0500 SaO2% (BldA) [Mass fraction] 98 % Michelle Elsy ROCK CRUSHER.MOLECULAR SPECTROSCOPIST Work Phone: [facility] 09-24-2024 14:43-0500 Systolic blood pressure 122 mm[Hg] Michelle Elsy ROCK CRUSHER.MOLECULAR SPECTROSCOPIST Work Phone: [facility] 09-15-2024 10:09-0500 Body mass index (BMI) [Ratio] 29.85 kg/m2 Destiney Helder ROCK CRUSHER.MOLECULAR SPECTROSCOPIST Work Phone: [facility] 09-15-2024 10:09-0500 Body weight 71.67 kg Destiney Helder ROCK CRUSHER.MOLECULAR SPECTROSCOPIST Work Phone: [facility] 09-15-2024 10:09-0500 Diastolic blood pressure 66 mm[Hg] Destiney Helder ROCK CRUSHER.MOLECULAR SPECTROSCOPIST Work Phone: [facility] 09-15-2024 10:09-0500 Systolic blood pressure 118 mm[Hg] Destiney [place] ROCK CRUSHER.MOLECULAR SPECTROSCOPIST Work Phone: [facility] 07-08-2024 17:38-0500 Body mass index (BMI) [Ratio] 28.87 kg/m2 Letty Kay ROCK CRUSHER.MOLECULAR SPECTROSCOPIST Work Phone: [facility] 07-08-2024 17:38-0500 Body temperature 98.4 [degF] Letty Kay ROCK CRUSHER.MOLECULAR SPECTROSCOPIST Work Phone: [facility] 07-08-2024 17:38-0500 Body weight 69.3 kg Letty Kay ROCK CRUSHER.MOLECULAR SPECTROSCOPIST Work Phone: [facility] 07-08-2024 17:38-0500 Diastolic blood pressure 82 mm[Hg] Letty Kay ROCK CRUSHER.MOLECULAR SPECTROSCOPIST Work Phone: [facility] 07-08-2024 17:38-0500 Heart rate 109 /min Letty Kay ROCK CRUSHER.MOLECULAR SPECTROSCOPIST Work Phone: [facility] 07-08-2024 17:38-0500 Respiratory rate 18 /min Letty Kay ROCK CRUSHER.MOLECULAR SPECTROSCOPIST Work Phone: [facility] 07-08-2024 17:38-0500 SaO2% (BldA) [Mass fraction] 97 % Letty Kay ROCK CRUSHER.MOLECULAR SPECTROSCOPIST Work Phone: [facility] 07-08-2024 17:38-0500 Systolic blood pressure 128 mm[Hg] Letty Kay ROCK CRUSHER.MOLECULAR SPECTROSCOPIST Work Phone: [facility] 04-11-2024 11:57-0400 Body mass index (BMI) [Ratio] 28.78 kg/m2 Krislyn Aberegg PA Work Phone: [facility] 04-11-2024 11:57-0400 Body temperature 97.9 [degF] Krislyn Aberegg PA Work Phone: [facility] 04-11-2024 11:57-0400 Body weight 69.1 kg Krislyn Aberegg PA Work Phone: [facility] 04-11-2024 11:57-0400 Diastolic blood pressure 70 mm[Hg] Krislyn Aberegg PA Work Phone: [facility] 04-11-2024 11:57-0400 Heart rate 92 /min Krislyn Aberegg PA Work Phone: [facility] 04-11-2024 11:57-0400 Respiratory rate 16 /min Krislyn Aberegg PA Work Phone: [facility] 04-11-2024 11:57-0400 SaO2% (BldA) [Mass fraction] 97 % Krislyn Aberegg PA Work Phone: [facility] 04-11-2024 11:57-0400 Systolic blood pressure 122 mm[Hg] Krislyn Aberegg PA Work Phone: [facility] 03-31-2024 12:47-0400 Body height 154.9 cm Ifeoma Davis MD Work Phone: [facility] 03-31-2024 12:47-0400 Body mass index (BMI) [Ratio] 28.34 kg/m2 Ifeoma Davis MD Work Phone: [facility] 03-31-2024 12:47-0400 Body weight 68.04 kg Ifeoma Davis MD Work Phone: [facility] 03-31-2024 12:47-0400 Diastolic blood pressure 70 mm[Hg] Ifeoma Davis MD Work Phone: [facility] 03-31-2024 12:47-0400 Heart rate 80 /min Ifeoma Davis MD Work Phone: [facility] 03-31-2024 12:47-0400 Respiratory rate 16 /min Ifeoma Davis MD Work Phone: [facility] 03-31-2024 12:47-0400 Systolic blood pressure 128 mm[Hg] Ifeoma Davis MD Work Phone: [facility] 12-24-2023 12:58-0400 Body height 151.1 cm Destiney Helder ROCK CRUSHER.MOLECULAR SPECTROSCOPIST Work Phone: [facility] 12-24-2023 12:58-0400 Body mass index (BMI) [Ratio] 30.58 kg/m2 Destiney [place] ROCK CRUSHER.MOLECULAR SPECTROSCOPIST Work Phone: [facility] 12-24-2023 12:58-0400 Body weight 69.85 kg Destiney Helder ROCK CRUSHER.MOLECULAR SPECTROSCOPIST Work Phone: [facility] 12-24-2023 12:58-0400 Diastolic blood pressure 82 mm[Hg] Destiney [place] ROCK CRUSHER.MOLECULAR SPECTROSCOPIST Work Phone: [facility] 12-24-2023 12:58-0400 Systolic blood pressure 126 mm[Hg] Destiney [place] ROCK CRUSHER.MOLECULAR SPECTROSCOPIST Work Phone: [facility] 11-18-2023 10:09-0400 Body temperature 98.29 [degF] Adriana Young ROCK CRUSHER.MOLECULAR SPECTROSCOPIST Work Phone: [facility] 11-18-2023 10:09-0400 Body weight 70 kg Adriana Vidal ROCK CRUSHER.MOLECULAR SPECTROSCOPIST Work Phone: [facility] 11-18-2023 10:09-0400 Diastolic blood pressure 72 mm[Hg] Adriana Young ROCK CRUSHER.MOLECULAR SPECTROSCOPIST Work Phone: [facility] 11-18-2023 10:09-0400 Heart rate 80 /min Adriana Vidal ROCK CRUSHER.MOLECULAR SPECTROSCOPIST Work Phone: [facility] 11-18-2023 10:09-0400 Respiratory rate 18 /min Adriana Vidal ROCK CRUSHER.MOLECULAR SPECTROSCOPIST Work Phone: [facility] 11-18-2023 10:09-0400 SaO2% (BldA) [Mass fraction] 96 % Adriana Young ROCK CRUSHER.MOLECULAR SPECTROSCOPIST Work Phone: [facility] 11-18-2023 10:09-0400 Systolic blood pressure 124 mm[Hg] Adriana Young ROCK CRUSHER.MOLECULAR SPECTROSCOPIST Work Phone: [facility] 05-30-2023 14:00-0400 Diastolic blood pressure 81 mm[Hg] Andry Connelly MD Work Phone: [facility] 05-30-2023 14:00-0400 Heart rate 81 /min Andry Connelly MD Work Phone: [facility] 05-30-2023 14:00-0400 Respiratory rate 16 /min Andry Connelly MD Work Phone: [facility] 05-30-2023 14:00-0400 SaO2% (BldA) [Mass fraction] 99 % Andry Connelly MD Work Phone: [facility] 05-30-2023 14:00-0400 Systolic blood pressure 126 mm[Hg] Andry Connelly MD Work Phone: [facility] 05-30-2023 13:38-0400 Body temperature 98.1 [degF] Andry Connelly MD Work Phone: [facility] 05-30-2023 12:42-0400 Body height 152.4 cm Andry Connelly MD Work Phone: [facility] 05-30-2023 12:42-0400 Body mass index (BMI) [Ratio] 30.66 kg/m2 Andry Connelly MD Work Phone: [facility] 05-30-2023 12:42-0400 Body weight 71.22 kg Andry Connelly MD Work Phone: [facility] 05-21-2023 11:22-0400 Body height 149.9 cm Virginia Denbow PA-C Work Phone: [facility] 05-21-2023 11:22-0400 Body temperature 98.4 [degF] Virginia Denbow PA-C Work Phone: [facility] 05-21-2023 11:22-0400 Body weight 73.94 kg Virginia Denbow PA-C Work Phone: [facility] 05-21-2023 11:22-0400 Diastolic blood pressure 68 mm[Hg] Virginia Denbow PA-C Work Phone: [facility] 05-21-2023 11:22-0400 Heart rate 98 /min Virginia Denbow PA-C Work Phone: [facility] 05-21-2023 11:22-0400 Respiratory rate 12 /min Virginia Denbow PA-C Work Phone: [facility] 05-21-2023 11:22-0400 SaO2% (BldA) [Mass fraction] 99 % Virginia Denbow PA-C Work Phone: [facility] 05-21-2023 11:22-0400 Systolic blood pressure 124 mm[Hg] Virginia Denbow PA-C Work Phone: [facility] 04-30-2023 12:59-0400 Body height 149.9 cm Cande Kalka PA-C Work Phone: [facility] 04-30-2023 12:59-0400 Body weight 73.03 kg Cande Kalka PA-C Work Phone: [facility] 04-30-2023 12:59-0400 Diastolic blood pressure 72 mm[Hg] Cande Kalka PA-C Work Phone: [facility] 04-30-2023 12:59-0400 Heart rate 94 /min Cande Kalka PA-C Work Phone: [facility] 04-30-2023 12:59-0400 Systolic blood pressure 122 mm[Hg] Cande Kalka PA-C Work Phone: [facility] 10-16-2022 12:58-0500 Body height 152.4 cm Ifeoma Davis MD Work Phone: [facility] 10-16-2022 12:58-0500 Body temperature 97.81 [degF] Ifeoma Davis MD Work Phone: [facility] 10-16-2022 12:58-0500 Body weight 71.67 kg Ifeoma Davis MD Work Phone: [facility] 10-16-2022 12:58-0500 Diastolic blood pressure 70 mm[Hg] Ifeoma Davis MD Work Phone: [facility] 10-16-2022 12:58-0500 Heart rate 102 /min Ifeoma Davis MD Work Phone: [facility] 10-16-2022 12:58-0500 Respiratory rate 12 /min Ifeoma Davis MD Work Phone: [facility] 10-16-2022 12:58-0500 SaO2% (BldA) [Mass fraction] 97 % Ifeoma Davis MD Work Phone: [facility] 10-16-2022 12:58-0500 Systolic blood pressure 120 mm[Hg] Ifeoma Davis MD Work Phone: [facility] 06-25-2022 11:48-0400 Diastolic blood pressure 80 mm[Hg] Jonathon Eugene MD Work Phone: [facility] 06-25-2022 11:48-0400 Respiratory rate 16 /min Jonathon Eugene MD Work Phone: [facility] 06-25-2022 11:48-0400 SaO2% (BldA) [Mass fraction] 100 % Jonathon Eugene MD Work Phone: [facility] 06-25-2022 11:48-0400 Systolic blood pressure 141 mm[Hg] Jonathon Eugene MD Work Phone: [facility] 06-25-2022 11:36-0400 Body temperature 97.3 [degF] Jonathon Eugene MD Work Phone: [facility] 06-25-2022 09:44-0400 Body height 152.4 cm Jonathon Eugene MD Work Phone: [facility] 06-25-2022 09:44-0400 Body weight 70.31 kg Jonathon Eugene MD Work Phone: [facility] 06-25-2022 09:44-0400 Heart rate 92 /min Jonathon Eugene MD Work Phone: [facility] 06-20-2022 12:40-0400 Body height 152.4 cm Charlene Grossman MD Work Phone: [facility] 06-20-2022 12:40-0400 Body weight 70.31 kg Charlene Grossman MD Work Phone: [facility] 06-20-2022 12:40-0400 Diastolic blood pressure 70 mm[Hg] Charlene Grossman MD Work Phone: [facility] 06-20-2022 12:40-0400 Heart rate 88 /min Charlene Grossman MD Work Phone: [facility] 06-20-2022 12:40-0400 Respiratory rate 18 /min Charlnee Grossman MD Work Phone: [facility] 06-20-2022 12:40-0400 SaO2% (BldA) [Mass fraction] 98 % Charlene Grossman MD Work Phone: [facility] 06-20-2022 12:40-0400 Systolic blood pressure 125 mm[Hg] Charlene Grossman MD Work Phone: [facility] 12-25-2021 13:03-0400 Body height 152.4 cm Ifeoma Davis MD Work Phone: [facility] 12-25-2021 13:03-0400 Body temperature 98.49 [degF] Ifeoma Davis MD Work Phone: [facility] 12-25-2021 13:03-0400 Body weight 73.03 kg Ifeoma Davis MD Work Phone: [facility] 12-25-2021 13:03-0400 Diastolic blood pressure 76 mm[Hg] Ifeoma Davis MD Work Phone: [facility] 12-25-2021 13:03-0400 Heart rate 100 /min Ifeoma Davis MD Work Phone: [facility] 12-25-2021 13:03-0400 Respiratory rate 12 /min Ifeoma Davis MD Work Phone: [facility] 12-25-2021 13:03-0400 SaO2% (BldA) [Mass fraction] 97 % Ifeoma Davis MD Work Phone: [facility] 12-25-2021 13:030400 Systolic blood pressure 132 mm[Hg] Ifeoma Davis MD Work Phone: [facility] 12-04-2021 13:040 Body height 152.4 cm Destiney Helder [employer]USHER.MOLECULAR SPECTROSCOPIST Work Phone: [facility] 12-04-2021 13:040 Body weight 74.39 kg Destiney Helder ROCK CRUSHER.MOLECULAR SPECTROSCOPIST Work Phone: [facility] 12-04-2021 13:040 Diastolic blood pressure 72 mm[Hg] Destiney Helder ROCK CRUSHER.MOLECULAR SPECTROSCOPIST Work Phone: [facility] 12-04-2021 13:0400 Systolic blood pressure 120 mm[Hg] Destiney [place] ROCK CRUSHER.MOLECULAR SPECTROSCOPIST Work Phone: [facility] Encounters Encounter Date Encounter Type Care Provider Facility Start: 07-13-2025 End: 07-13-2025 ambulatory STEPHENIE EDWIGE Facility:[facility] Start: 07-13-2025 ambulatory STEPHENIE EDWIGE Facility:[facility] Start: 07-13-2025 End: 07-13-2025 ambulatory [facility] Facility:[facility] Start: 07-10-2025 End: 07-10-2025 Emergency department patient visit [facility] Facility:[facility] Start: 07-06-2025 End: 07-06-2025 ambulatory [facility] Facility:[facility] Start: 07-05-2025 End: 07-05-2025 Emergency department patient visit [facility] Facility:[facility] Start: 06-30-2025 End: 07-01-2025 Evaluation and management of inpatient [facility] Facility:[facility] Start: 06-29-2025 End: 06-29-2025 Emergency department patient visit [facility] Facility:[facility] Start: 06-23-2025 End: 06-23-2025 Emergency department patient visit [facility] Facility:[facility] Start: 06-21-2025 End: 06-21-[address] Phillip Pozo DO -Cat Scan [facility] Work Phone: Start: 06-21-2025 End: 06-21-2025 ambulatory [facility] Facility:[facility] Start: 06-17-2025 End: 06-17-2025 Emergency department patient visit Dr. Patti Piña DO -Emergency Department Work Phone: Start: 06-17-2025 Non-patient / Non-visit Dr. Jaja CORREIA -[facility] Work Phone: Start: 06-17-2025 Encounter for other preprocedural examination [facility] Start: 06-14-2025 End: 06-14-2025 ambulatory [facility] Facility:[facility] Start: 06-11-2025 ambulatory [facility] Facility :[facility] Start: 06-04-2025 End: 06-04-[address] Phillip Pozo DO -[facility] Work Phone: Start: 06-04-2025 End: 06-04-[address] Ifeoma Davis MD Work Phone: -[facility] Start: 06-03-2025 End: 06-03-[address] Michael Cameron MD -[facility] Work Phone: Start: 06-03-2025 End: 06-03-[address] Ifeoma Davis MD Work Phone: -[facility] Start: 05-27-2025 End: 05-27-2025 Emergency department patient visit Dr. Juan Manuel Turpin MD -Emergency Department Work Phone: Start: 05-27-2025 Patient encounter procedure IFEOMA DAVIS [facility] Start: 05-27-2025 End: 05-27-2025 [facility] Start: 05-17-2025 End: 05-17-2025 Telephone encounter Aislinn Reyes PA-C Work Phone: Pulmonary Medicine Comment on above: Refill Request Start: 05-07-2025 End: 05-07-[address] Ifeoma Davis MD Work Phone: -[facility] Start: 05-07-2025 End: 05-07-[address] Michael Cameron MD -[facility] Work Phone: Start: 05-07-2025 End: 05-07-2025 ambulatory [facility] Facility:[facility] Start: 04-28-2025 End: 04-29-2025 Telephone encounter Ifeoma Davis MD Work Phone: Internal Medicine [place] Start: 04-22-2025 End: 04-22-2025 Telephone encounter Ifeoma Davis MD Work Phone: Internal Medicine [place] Comment on above: Medication Problem Start: 04-22-2025 End: 04-22-2025 [facility] Facility:[facility] Start: 04-22-2025 End: 04-22-2025 Office outpatient visit 25 minutes Ifeoma Davis MD Work Phone: Internal Medicine [place] Comment on above: Intertrigo (Primary Dx); Status post glaucoma surgery; Primary hypertension; DAYSI (obstructive sleep apnea); PXE (pseudoxanthoma elasticum); Poison boo dermatitis Start: 04-20-2025 End: 04-20-2025 [facility] Facility:[facility] Start: 04-20-2025 End: 04-20-2025 Postop follow up visit related to original px Cynthia Ramos MD Work Phone: [facility] Comment on above: Follow-up examinatio n after eye surgery (Primary Dx); Secondary glaucoma, indeterminate stage, bilateral Start: 04-16-2025 End: 04-16-[address] Edgar Beltran MD -[facility] Start: 04-16-2025 End: 04-16-[address] Ifeoma Davis MD Work Phone: -[facility] Start: 04-11-2025 End: 04-11-2025 Patient encounter procedure Aislinn Reyes PA-C Work Phone: [facility] [place] Comment on above: Viral URI with cough (Primary Dx) Start: 04-11-2025 End: 04-11-2025 ambulatory [facility] Facility:[facility] Start: 04-03-2025 End: 04-03-2025 Telephone encounter Shy Meier MD Work Phone: Ophthalmology Start: 04-02-2025 End: 04-02-2025 [facility] Facility:[facility] Start: 04-02-2025 End: 04-02-2025 Patient encounter [...] Work Phone: Ophthalmology Start: 03-25-2025 End: 03-25-2025 [facility] Facility:[facility] Start: 03-24-2025 End: 03-24-2025 [facility] Facility:[facility] Start: 03-24-2025 Encounter for other preprocedural examination [facility] Start: 03-24-2025 End: 03-24-2025 Admission to establishment [facility] [place] 1 Work Phone: Pre Anesthesia Start: 03-24-2025 [...] Start: 03-24-2025 End: 03-24-[address] [facility] [place] [facility] Work Phone: [facility] Work Phone: Start: 03-24-2025 End: 03-24-2025 Telephone encounter Janet Lowery MD Work Phone: Ophthalmology Comment on above: Patient Question Start: 03-23-2025 End: 03-23-2025 Telephone encounter Cynthia Ramos MD Work Phone: [facility] Comment on above: Appointment (Urgent issue.) Start: 03-23-2025 End: 03-23-2025 Office consultation new/estab patient 60 min Janet Lowery MD Work Phone: Ophthalmology Comment on above: Leaking of conjuncti rah drainage bleb (Primary Dx) Start: 03-23-2025 End: 03-23-2025 ambulatory [facility] Facility:[facility] Start: 03-16-2025 End: 03-19-2025 ambulatory Ifeoma Davis MD Work Phone: Internal Medicine [place] [id number] Start: 03-10-2025 End: 03-10-[address] Edgar Beltran MD -[facility] Start: 03-10-2025 End: 03-10-[address] Ifeoma Davis MD Work Phone: -[facility] Start: 03-02-2025 End: 03-02-2025 Nursing evaluation of patient and report Mi Nurse Work Phone: Family Medicine [place] Comment on above: Immunization due (Pr imary Dx) Start: 03-02-2025 End: 03-02-2025 ambulatory [facility] Facility:[facility] Start: 03-01-2025 End: 03-02-2025 Telephone encounter Ifeoma Davis MD Work Phone: Internal Medicine [place] Comment on above: Orders Start: 02-25-2025 End: 02-25-2025 Telephone encounter Ifeoma Davis MD Work Phone: [facility] Medicine [place] Comment on above: TDAP order Start: 01-12-2025 End: 01-13-2025 Telephone encounter Michelle Chin APRN.MOLECULAR SPECTROSCOPIST Work Phone: Neurology Comment on above: DME Order Request Start: 12-30-2024 End: 12-30-2024 Telephone encounter Michelle Chin APRN.MOLECULAR SPECTROSCOPIST Work Phone: Neurology Comment on above: Results Start: 12-29-2024 End: 12-29-2024 Office outpatient visit 25 minutes Ifeoma Davis MD Work Phone: [facility] Medicine [place] Comment on above: Primary hypertension (Primary Dx); Depression, unspecified depression type; Trigger finger, unspecified finger, unspecified laterality; Hypokalemia; Anxiety; Legally blind; Sleep apnea, unspecified type Start: 12-29-2024 End: 12-29-2024 ambulatory [facility] Facility:[facility] Start: 12-23-2024 End: 12-23-2024 Refill Ifeoma Davis MD Work Phone: [facility] [place] Comment on above: Refill Request Start: 12-17-2024 End: 12-17-2024 Follow-up encounter Michelle Chin APRN.MOLECULAR SPECTROSCOPIST Work Phone: Neurology Comment on above: Results Start: 12-09-2024 End: 12-09-[address] Phillpi Pozo DO [facility] Work Phone: Start: 12-09-2024 End: 12-09-2024 ambulatory [facility] Facility:[facility] Start: 12-07-2024 End: 12-08-2024 Telephone encounter Ifeoma Davis MD Work Phone: Internal Medicine [place] Comment on above: Patient Question Start: 12-01-2024 End: 12-07-2024 Telephone encounter Michelle Chin APRN.MOLECULAR SPECTROSCOPIST Work Phone: Neurology Comment on above: Results Start: 11-24-2024 End: 11-24-[address] Ifeoma Davis MD Work Phone: [facility] Work Phone: Start: 11-24-2024 End: 11-24-2024 Patient encounter procedure Allie Prakash -Radiology, [place] Work Phone: Start: 11-24-2024 End: 11-24-[address] Edgar Beltran MD -[facility] Start: 11-24-2024 End: 11-24-2024 ambulatory [facility] Facility:[facility] Start: 11-24-2024 End: 11-24-2024 ambulatory [facility] Facility:[facility] Start: 11-20-2024 End: 11-20-2024 Telephone encounter David Anna APRN.MOLECULAR SPECTROSCOPIST Work Phone: Internal Medicine [place] Comment on above: Results, Lab Start: 11-19-2024 End: 11-19-2024 ambulatory [facility] Facility:[facility] Start: 11-19-2024 End: 11-19-2024 Patient encounter procedure David Anna APRN.MOLECULAR SPECTROSCOPIST Work Phone: Internal Medicine [place] Comment on above: Hypertension, unspec ified type (Primary Dx); Dry mouth; Depression, unspecified depression type; Anxiety; Other fatigue; DAYSI (obstructive sleep apnea) Start: 11-17-2024 End: 12-18-2024 Patient encounter procedure Sleep Lab [place] Bed 1 [facility] Comment on above: Snoring; Excessive daytime sleepiness; Non-restorative sleep; PLMD (periodic limb movement disorder); Primary hypertension Start: 11-17-2024 End: 11-17-2024 ambulatory KIMBER[facility] PITKIN [facility] Start: 11-05-2024 End: 11-05-2024 Follow-up encounter Ifeoma Davis MD Work Phone: Geriatrics Start: 11-03-2024 End: 11-03-2024 ambulatory [facility] Facility:[facility] Start: 11-03-2024 End: 11-03-2024 Office outpatient visit 25 minutes Ifeoma Davis MD Work Phone: Internal Medicine [place] Comment on above: Vitamin D deficiency (Primary Dx); Dry mouth; Vitamin B12 deficiency; Iron deficiency; Other fatigue Start: 11-02-2024 End: 11-02-2024 Follow-up encounter Britta ESCUDERO Work Phone: [place] [facility] Start: 10-31-2024 End: 10-31-2024 ambulatory [facility] Facility:[facility] Start: 10-31-2024 End: 10-31-2024 Patient encounter procedure Chantalrafy Salmonk ROCK CRUSHER.MOLECULAR SPECTROSCOPIST Work Phone: [place] [facility] Comment on above: Dysuria (Primary Dx) ; Acute lower UTI Start: 10-22-2024 End: 12-22-2024 Follow-up encounter Destiney Pendleton APRN.CNP Work Phone: OB/Gynecology Start: 10-21-2024 End: 10-21-2024 ambulatory [facility] Facility:[facility] Start: 10-21-2024 Encounter for gynecological examination (general) (routine) without abnormal findings IFEOMA DAVIS [facility] Start: 10-21-2024 End: 10-21-2024 Patient encounter status Screen Wstr [facility] Start: 10-21-2024 End: 10-21-2024 Subsequent hospital visit by physician Screen Mammo [facility] W[facility] Mammogram Comment on above: Encounter for gyneco logical examination (general) (routine) without abnormal findings [Z01.419] Start: 10-13-2024 End: 10-13-2024 [facility] Facility:[facility] Start: 10-13-2024 End: 10-13-2024 Office outpatient visit 15 minutes Cynthia Ramos MD Work Phone: [facility] Comment on above: Secondary glaucoma, indeterminate stage, bilateral (Primary Dx); Angioid streaks of macula; Pseudoxanthoma elasticum Start: 10-12-2024 End: 10-12-2024 [facility] Facility:[facility] Start: 10-12-2024 End: 10-12-2024 Office outpatient visit 25 minutes Ifeoma Davis MD Work Phone: Internal Medicine [place] Comment on above: Anxiety (Primary Dx) ; Screening for depression; Encounter for screening examination for other mental health and behavioral disorders; Dry mouth; Insomnia, unspecified type; Current moderate episode of major depressive disorder without prior episode (HCC) Start: 10-07-2024 End: 10-07-2024 ambulatory CALLI Clint ZABRINA Facility:[facility] Start: 10-07-2024 End: 10-07-2024 Patient encounter procedure Calli Clint Zabrina ROCK CRUSHER.MOLECULAR SPECTROSCOPIST Work Phone: Internal Medicine [place] Comment on above: Memory impairment (P rimary Dx); Dry mouth; Depression, unspecified depression type Start: 10-07-2024 End: 10-12-2024 Telephone encounter Ifeoma Davis MD Work Phone: Internal Medicine [place] Comment on above: Future Appointment Patient Question Start: 09-29-2024 End: 09-29-2024 [facility] Facility:[facility] Start: 09-29-2024 End: 09-29-2024 Office outpatient visit 25 minutes Ifeoma Davis MD Work Phone: [facility] Medicine [place] Comment on above: Depression, unspecif ied depression type (Primary Dx); Encounter for immunization; Insomnia, unspecified type Start: 09-25-2024 End: 04-10-2025 Telephone encounter Michelle Chin APRN.MOLECULAR SPECTROSCOPIST Work Phone: Neurology Comment on above: Copy Center Specialist - O ther Start: 09-24-2024 End: 09-24-2024 Patient encounter procedure Michelle Chin APRN.MOLECULAR SPECTROSCOPIST Work Phone: Neurology Comment on above: Excessive daytime sl eepiness (Primary Dx); Non-restorative sleep Start: 09-24-2024 End: 09-24-2024 [facility] Facility:[facility] Start: 09-15-2024 End: 09-15-2024 ambulatory [facility] Facility:[facility] Start: 09-15-2024 End: 09-15-2024 Patient encounter procedure Destiney Pendleton APRN.MOLECULAR SPECTROSCOPIST Work Phone: OB/Gynecology Comment on above: Vasomotor symptoms d ue to menopause (Primary Dx) Start: 09-08-2024 End: 09-08-2024 Refill Ifeoma Davis MD Work Phone: Internal Medicine [place] Comment on above: Refill Request Start: 08-12-2024 End: 04-13-2025 Telephone encounter Ifeoma Davis MD Work Phone: Internal Medicine [place] Comment on above: Patient Update Start: 08-10-2024 End: 08-10-2024 ambulatory Akanksha Ross MA [facility] [place] Start: 08-10-2024 End: 08-10-2024 Patient encounter procedure Akanksha Ross MA [facility] Comment on above: Population Health Na vigation Outreach ([facility]) Start: 07-27-2024 End: 08-05-2024 Telephone encounter Ifeoma Davis MD Work Phone: [facility] Comment on above: Results Start: 07-22-2024 End: 07-22-2024 ambulatory [facility] Facility:[facility] Start: 07-15-2024 End: 07-15-2024 ambulatory [facility] Facility:[facility] Start: 07-10-2024 End: 07-10-2024 Telephone encounter Ifeoma Davis MD Work Phone: [facility] Comment on above: Fax Request Start: 07-09-2024 End: 07-09-2024 Telephone encounter Adriana Vidal APRN.MOLECULAR SPECTROSCOPIST Work Phone: [place] [facility] Comment on above: Results Start: 07-08-2024 End: 07-08-2024 Patient encounter procedure Letty Kay APRN.MOLECULAR SPECTROSCOPIST Work Phone: [place] [facility] Comment on above: Close exposure to [place] VID-19 virus (Primary Dx) Start: 07-07-2024 End: 07-09-2024 Refill Ifeoma Davis MD Work Phone: [facility] Comment on above: Refill Request Orders Start: 06-29-2024 End: 06-30-2024 Refill Ifeoma Davis MD Work Phone: [facility] [place] Comment on above: Refill Request Start: 06-15-2024 End: 06-15-2024 ambulatory Chana Bridges MA [facility] [place] Start: 06-15-2024 End: 06-15-2024 Patient encounter procedure Chana Bridges MA [facility] Comment on above: Population Health Na vigation Outreach (Med Adherence) Start: 06-12-2024 End: 06-12-2024 ambulatory Akanksha Ross MA [facility] [place] Start: 06-12-2024 End: 06-12-2024 [facility] Comment on above: Population Health Na vigation Outreach ([facility] [place] [facility] Start: 05-29-2024 End: 05-29-2024 ambulatory Eileen Quinteros [facility] [place] Start: 05-29-2024 End: 05-29-2024 Patient encounter [facility] Comment on above: Population Health Na vigation Outreach (Med adherence ) Start: 05-14-2024 End: 06-29-2024 Telephone encounter Ifeoma Davis MD Work Phone: Internal Medicine [place] Comment on above: Patient Question Start: 05-06-2024 End: 05-11-2024 Telephone encounter Cynthia Ramos MD Work Phone: [facility] Comment on above: Letter Start: 05-01-2024 End: 05-06-2024 Telephone encounter Cynthia Ramos MD Work Phone: [facility] Comment on above: Letter Start: 2024 End: 2024 Refill Ifeoma Davis MD Work Phone: Internal Medicine [place] Comment on above: Refill Request Start: 04-13-2024 Telephone encounter Cynthia cheatham MD Work Phone: [facility] Comment on above: Patient Update Start: 04-11-2024 End: 04-11-2024 Patient encounter procedure Britta ESCUDERO Work Phone: [place] [facility] Comment on above: Allergic contact roman matitis due to plants, except food (Primary Dx) Start: 04-02-2024 Telephone encounter Ifeoma deluna MD Work Phone: Internal Medicine [place] Comment on above: Results Start: 03-31-2024 End: 03-31-2024 Office outpatient visit 25 minutes Ifeoma Davis MD Work Phone: Internal Medicine [place] Comment on above: Annual wellness visi t (Primary Dx); 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 injury; Primary hypertension; Trigger finger, unspecified finger, unspecified laterality; Special screening examination for viral disease; Screening for HIV (human immunodeficiency virus); Legally blind; Mixed hyperlipidemia Start: 03-31-2024 End: 03-31-2024 Patient encounter procedure Ifeoma Davis MD Work Phone: [facility] Start: 03-17-2024 ambulatory Ifeoma Sampson Work Phone: Internal Medicine [place] [id number] Start: 02-18-2024 End: 02-18-2024 Office outpatient visit 15 minutes Cynthia Ramos MD Work Phone: [facility] Comment on above: Secondary glaucoma, indeterminate stage, bilateral (Primary Dx); Pseudoxanthoma elasticum; Angioid streaks of macula; Pseudophakia of both eyes; Legally blind Start: 01-01-2024 Refill David Anna APRN, .CNP Work Phone: Internal Medicine [place] Comment on above: Refill Request Start: 12-25-2023 [...] End: 12-24-2023 Patient encounter status Destiney Pendleton ROCK CRUSHER.MOLECULAR SPECTROSCOPIST Work Phone: [facility] Start: 12-04-2023 End: 12-04-[address] Ifeoma Davis Work Phone: [facility] Work Phone: Start: 12-04-2023 End: 12-04-[address] Ifeoma Davis Work Phone: [facility] Work Phone: Start: 11-18-2023 End: 11-18-2023 Patient encounter procedure Adriana King MURTAZA.MOLECULAR SPECTROSCOPIST Work Phone: [facility] Comment on above: Bacterial sinusitis (Primary Dx) Start: 11-13-2023 Refill Ifeoma Sampson Work Phone: Internal Medicine [place] Comment on above: Refill Request Start: 11-06-2023 End: 11-06-[address] Ifeoma Davis Work Phone: [facility] Work Phone: Start: 10-25-2023 ambulatory Alessandra Lora [facility] [place] Comment on above: Population Health Na vigation Outreach (Drew [facility]) Start: 10-11-2023 Documentation procedure Mammog lien Coordinator [facility] Start: 10-11-2023 Letter encounter Mammography Coordinator [facility] Department Start: 10-10-2023 End: 10-10-2023 Subsequent hospital visit by physician Screen Mammo [facility] Mammogram Comment on above: Encounter for screen ing mammogram for breast cancer [Z12.31] Start: 10-08-2023 Telephone encounter Ifeoma deluna MD Work Phone: Internal Medicine [place] Comment on above: Patient Update Start: 10-04-2023 ambulatory Mary Salinas [facility] [place] Comment on above: Population Health Na vigation Outreach ([facility] ) Start: 07-23-2023 Refill Virginia Avalos PA-C Work Phone: Internal Medicine [place] Comment on above: Refill Request Start: 06-25-2023 Refill Ifeoma Sampson Work Phone: [address] [place] [address] Comment on above: Erroneous encounter- disregard Start: 05-30-2023 End: 05-30-2023 Subsequent hospital visit by physician Andry Connelly MD Work Phone: Ambulatory Surgery Comment on above: Gastroesophageal ref lux disease, unspecified whether esophagitis present [K21.9] Start: 05-27-2023 ambulatory Andry Connelly MD Work Phone: Ambulatory Surgery Start: 05-21-2023 End: 05-21-2023 Patient encounter procedure Virginia Avalos PA-C Work Phone: Internal Medicine [place] Comment on above: Legally blind (Prima ry Dx); PXE (pseudoxanthoma elasticum); Trigger finger, unspecified finger, unspecified laterality; Mixed hyperlipidemia; Primary hypertension; Swelling of both hands; Gastroesophageal reflux disease with esophagitis, unspecified whether hemorrhage Start: 05-07-2023 Telephone encounter Ifeoma deluna MD Work Phone: Internal Medicine [place] Comment on above: Handicapped Placard Renewal Start: 05-03-2023 Refill Calli Anna APRN, .CNP Work Phone: Internal Medicine [place] Comment on above: Refill Request Start: 04-30-2023 End: 04-30-2023 Patient encounter procedure Cande Pozo PA-C Work Phone: Gastroenterology [place] Comment on above: Gastroesophageal ref lux disease, unspecified whether esophagitis present (Primary Dx); Change in bowel habits Start: 04-25-2023 End: 04-25-2023 Patient encounter procedure Massimo Roberts MD Work Phone: Orthopaedics Comment on above: Numbness and tinglin g in right hand (Primary Dx) Start: 04-09-2023 Telephone encounter Ifeoma deluna MD Work Phone: Internal Medicine [place] Comment on above: requesting lab order Start: 02-19-2023 End: 02-19-2023 Office outpatient visit 15 minutes Cynthia Ramos MD Work Phone: [facility] Comment on above: Secondary glaucoma, indeterminate stage, bilateral (Primary Dx); Pseudoxanthoma elasticum; Pseudophakia of both eyes Start: 01-27-2023 Refill David Anna APRN, .CNP Work Phone: Internal Medicine [place] Comment on above: Refill Request Start: 01-01-2023 End: 01-01-2023 ambulatory [facility] Work Phone: Start: 01-01-2023 End: 01-01-2023 Discharged Recurring [facility]-Occupational Therapy Start: 12-12-2022 Refill Ifeoma Sampson Work Phone: [facility] Comment on above: Refill Request (SEE RX NOTES) Start: 12-04-2022 End: 12-04-2022 Postop follow up visit related to original px Cynthia Ramos MD Work Phone: [facility] Comment on above: Follow-up exam (Prim terra Dx); Vitreous prolapse of left eye Start: 11-22-2022 End: 11-22-2022 Postop follow up visit related to original px Cynthia Ramos MD Work Phone: [facility] [facility] Comment on above: Follow-up exam (Prim terra Dx) Start: 11-19-2022 End: 11-19-2022 Patient encounter procedure Taina Fan PA-C Work Phone: Orthopaedics Comment on above: Trigger ring finger of right hand (Primary Dx); Trigger middle finger of left hand Follow-up exam (Prim terra Dx) Start: 11-19-2022 Telephone encounter Henrik Chen MD Work Phone: [facility] Comment on above: Eye Problem Patient Question; Nu rse To Address Start: 11-16-2022 End: 11-16-2022 Patient encounter procedure Cynthia Ramos MD Work Phone: [facility] Comment on above: Follow-up exam (Prim terra Dx) Start: 11-13-2022 Telephone encounter Cynthia cheatham MD Work Phone: [facility] Comment on above: Appointment Start: 11-07-2022 End: 11-07-2022 ambulatory MASSIMOCANDELARIA ROBERTS [facility] Start: 11-05-2022 Telephone encounter Massimo monterroso MD Work Phone: Orthopaedics Comment on above: Patient Question Start: 11-01-2022 Telephone encounter Massimo monterroso MD Work Phone: Orthopaedics Comment on above: Appointment (Siena ding regarding surgery) Start: 10-31-2022 End: 10-31-2022 ambulatory WOLF MASON Facility:[id number] Start: 10-31-2022 End: 10-31-2022 ambulatory Michelle Perez OT/L [facility] [place] Comment on above: Blindness right eye category 3, blindness left eye category 4 (Primary Dx); Complaints of difficulty with reading; Difficulty with household tasks; Impaired mobility and personal care; Personal care impairment Start: 10-29-2022 End: 10-29-2022 Patient encounter procedure A-Scan Opht [place] Work Phone: [facility] Comment on above: Nuclear sclerotic ca taract of left eye (Primary Dx) Start: 10-26-2022 Telephone encounter Cynthia cheatham MD Work Phone: [facility] Comment on above: Returning Patient's Call (ascan) Start: 10-23-2022 End: 10-23-2022 Subsequent hospital visit by physician [facility] 1 Work Phone: Radiology Comment on above: Abnormal mammogram [ R92.8] Start: 10-17-2022 End: 10-17-2022 ambulatory WOLF MASON Facility:[id number] Start: 10-17-2022 End: 10-17-2022 ambulatory Michelle Perez OT/L [facility] [place] Comment on above: Difficulty with hous ehold tasks (Primary Dx); Blindness right eye category 3, blindness left eye category 4; Impaired mobility and personal care; Personal care impairment; Complaints of difficulty with reading Start: 10-16-2022 End: 10-16-2022 Patient encounter procedure Ifeoma Davis MD Work Phone: Internal Medicine [place] Comment on above: Gastroesophageal ref lux disease with esophagitis, unspecified whether hemorrhage (Primary Dx); Pre-operative clearance; Trigger finger, unspecified finger, unspecified laterality; Primary hypertension; Mixed hyperlipidemia; PAD (peripheral artery disease) (HCC); PXE (pseudoxanthoma elasticum); Hot flashes Start: 10-16-2022 End: 10-16-2022 Preoperative state Ifeoma Davis MD Work Phone: Internal Medicine [place] Start: 10-09-2022 Telephone encounter Liliya medrano MD Work Phone: Mammography Comment on above: Mammogram Result Favio l Back Start: 10-09-2022 End: 10-09-2022 Subsequent hospital visit by physician [facility] [place] Siegel Work Phone: Radiology Start: 10-02-2022 [...] MAIN Start: 09-28-2022 Letter encounter Mammography Coordinator [facility] Department Start: 09-28-2022 Telephone encounter Destiney davis APRN.CNP Work Phone: OB/Gynecology Comment on above: Orders Start: 09-27-2022 ambulatory Ifeoma Sampson Work Phone: Internal Medicine [place] Comment on above: Upcoming visit on Start: 09-27-2022 Patient encounter procedure Ifeoma Davis MD Work Phone: Internal Medicine [place] Start: 09-27-2022 End: 09-27-2022 Subsequent hospital visit by physician Screen Mammo [facility] Comment on above: Encounter for screen ing mammogram for breast cancer [Z12.31] Start: 09-25-2022 End: 09-25-2022 Patient encounter procedure Cynthia Ramos MD Work Phone: [facility] Comment on above: Nuclear senile catar act of left eye (Primary Dx); Primary open angle glaucoma (POAG) of left eye, severe stage Start: 09-19-2022 End: 09-19-2022 ambulatory WOLF MASON Facility:[id number] Start: 09-19-2022 Telephone encounter Wolf Mcpherson vinay OD Work Phone: [facility] Comment on above: Follow Up Phone Call Start: 09-19-2022 End: 09-19-2022 ambulatory Michelle Perez OT/L [facility] [place] Comment on above: Blindness right eye category 3, blindness left eye category 4 (Primary Dx); Difficulty with household tasks; Impaired mobility and personal care; Personal care impairment; Complaints of difficulty with reading Start: 08-16-2022 End: 08-16-2022 Patient encounter procedure Wolf Milesdonato OD Work Phone: [facility] Comment on above: Blindness right eye category 3, blindness left eye category 4 (Primary Dx); Pseudophakia, right eye; Combined forms of age-related cataract, left eye; Hyperopia of right eye Start: 08-10-2022 Refill Ifeoma Sampson Work Phone: Internal Medicine [place] Comment on above: Refill Request Start: 07-24-2022 End: 07-24-2022 Patient encounter procedure Jonathon Eugene MD Work Phone: Ophthalmology Comment on above: Pseudophakia, right eye (Primary Dx) Start: 07-23-2022 Refill Destiney Pendleton APRN.CNP Work Phone: OB/Gynecology Comment on above: Refill Request Medication Problem ( flonase) Start: 07-04-2022 Telephone encounter Ifeoma deluna MD Work Phone: Internal Medicine [place] Comment on above: Patient Update Start: 07-03-2022 [...] Telephone encounter Jonathon graves MD Work Phone: [facility] Comment on above: Copy Center Specialist - O ther Cough Start: 06-26-2022 End: 06-26-2022 Patient encounter procedure Jonathon Eugene MD Work Phone: [facility] Comment on above: Pseudophakia (Primar y Dx) Start: 06-25-2022 ambulatory JONATHON EUGENE Facility: [facility] Start: 06-25-2022 End: 06-25-2022 Subsequent hospital visit by physician Jonathon Eugene MD Work Phone: [facility] Comment on above: 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 [H25.811]Photopsia [H53.19] Start: 06-22-2022 Refill Jonathon Eugene MD Work Phone: [facility] Comment on above: Refill Request (Pre- op drops) Medication Problem Start: 06-20-2022 Telephone encounter Jonathon graves MD Work Phone: [facility] Comment on above: Appointment Start: 06-20-2022 End: 06-20-2022 Patient encounter procedure Charlene Grossman MD Work Phone: [facility] Cardiology [place] Comment on above: PXE (pseudoxanthoma elasticum) (Primary Dx); Obesity, Class I, BMI 30-34.9 Start: 05-11-2022 Refill Ifeoma Sampson Work Phone: [facility] Comment on above: Refill Request Patient Question (Re quest medication not on med list please) Start: 05-03-2022 End: 05-03-2022 Patient encounter procedure Massimo Roberts MD Work Phone: Orthopaedics Comment on above: Pain in both hands ( Primary Dx); Trigger middle finger of left hand; Trigger ring finger of right hand Start: 04-25-2022 Telephone encounter Jonathon graves MD Work Phone: [facility] Comment on above: Preparations For Sharath [...] encounter procedure Cynthia Ramos MD Work Phone: [facility] Comment on above: Primary open angle g laucoma (POAG) of both eyes, indeterminate stage (Primary Dx); Corneal dellen of left eye; Nuclear senile cataract of right eye Start: 03-20-2022 ambulatory Ifeoma Sampson Work Phone: Internal Medicine [facility] [place] Start: 03-14-2022 End: 03-14-2022 Patient encounter procedure Jonathon Eugene MD Work Phone: Ophthalmology Comment on above: Photopsia (Primary D x); Primary open angle glaucoma (POAG) of both eyes, indeterminate stage; Combined form of age-related cataract, both eyes; Marginal corneal ulcer of left eye; Angioid streaks of macula Start: 03-02-2022 Telephone encounter Jonathon graves MD Work Phone: [facility] Comment on above: Lab & Test Results Start: 02-27-2022 End: 02-27-2022 Patient encounter procedure Jonathon Eugene MD Work Phone: [facility] Comment on above: Photopsia (Primary D x); Primary open angle glaucoma (POAG) of both eyes, indeterminate stage; Combined form of age-related cataract, both eyes; Marginal corneal ulcer of left eye Start: 02-10-2022 Telephone encounter Alise Dejesus APRN.MOLECULAR SPECTROSCOPIST Work Phone: [facility] Comment on above: Results Start: 02-09-2022 Refill Ifeoma Sampson Work Phone: Internal Medicine [place] Comment on above: Refill Request Start: 02-07-2022 Telephone encounter Jonathon graves MD Work Phone: [facility] Comment on above: Medication Problem Start: 01-12-2022 Refill Destiney Pendleton APRN.MOLECULAR SPECTROSCOPIST Work Phone: OB/Gynecology Comment on above: Refill Request Start: 12-25-2021 End: 12-25-2021 Patient encounter procedure Ifeoma Davis MD Work Phone: Internal Medicine [place] Comment on above: PXE (pseudoxanthoma elasticum) (Primary Dx); Vertigo; Memory deficits; New daily persistent headache; Chronic mixed headache syndrome Start: 12-19-2021 End: 12-19-2021 Patient encounter procedure Cynthia Ramos MD Work Phone: [facility] Comment on above: Follow-up exam (Prim terra Dx); Photopsia; 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 Start: 12-07-2021 Telephone encounter Ifeoma deluna MD Work Phone: Internal [facility] [place] Comment on above: Patient Question Start: 12-04-2021 End: 12-04-2021 Patient encounter procedure Destiney Pendleton ROCK CRUSHER.MOLECULAR SPECTROSCOPIST Work Phone: OB/Gynecology Comment on above: Encounter for gyneco logical examination (general) (routine) without abnormal findings (Primary Dx); Encounter for screening mammogram for breast cancer Start: 12-04-2021 End: 12-04-2021 Patient encounter status Destiney Pendleton ROCK CRUSHER.MOLECULAR SPECTROSCOPIST Work Phone: OB/Gynecology Start: 11-28-2021 End: 11-28-2021 Patient encounter procedure Cynthia Ramos MD Work Phone: [facility] Comment on above: Follow-up exam (Prim [...] Work Phone: Start: 11-17-2024 Polysomnogram Michelle Chin APRN.MOLECULAR SPECTROSCOPIST Work Phone: Start: 10-31-2024 Urnls dip stick/tablet rgnt auto w/o microscopy [facility] Provider Start: 10-13-2024 Computerized ophthalmic imaging retina Cynthia Ramos MD Work Phone: Start: 10-12-2024 Adult depression screening assessment Michelle Chin APRN.MOLECULAR SPECTROSCOPIST Work Phone: Start: 03-27-2024 Lipid 1996 panel - Serum or Plasma Ifeoma Davsi MD Work Phone: Start: 02-18-2024 Computerized ophthalmic [...] uni real time with image limited Destiney [place] ROCK CRUSHER.MOLECULAR SPECTROSCOPIST Work Phone: Start: 10-23-2022 Digital breast tomosynthesis unilateral Destiney [place] ROCK CRUSHER.MOLECULAR SPECTROSCOPIST Work Phone: Start: 10-16-2022 Ecg routine ecg w/least 12 lds i&r only [facility] Provider Start: 10-15-2022 Lipid 1996 panel - Serum or Plasma Massimo Roberts MD Work Phone: Start: 10-09-2022 Radex shoulder complete minimum 2 views [facility] Provider Start: 10-01-2022 Radex hand minimum 3 views Massimo levin MD Work Phone: Start: 09-27-2022 End: 09-27-2022 Mammography Destiney Helder ROCK CRUSHER.MOLECULAR SPECTROSCOPIST Work Phone: Start: 06-29-2022 Computerized ophthalmic imaging retina Valenitne Torres OD Work Phone: Start: 04-12-2022 IOL [...] DTaP,Tdap,Td Vaccine (2 - Td or Tdap) [facility] Start: 03-27-2029 Lipid panel Lipid Screening [facility] Start: 12-23-2028 Screening for malignant neoplasm of cervix [facility] Start: 05-30-2028 Colonoscopy Colonoscopy [facility] Start: 05-30-2028 Colorectal Cancer Screening Colorectal Cancer Screening [facility] Start: 05-30-2028 Screening for malignant neoplasm of colon [facility] Start: 03-24-2028 Diabetes Screening Diabetes Screening [facility] Start: 11-20-2027 Diabetes Screening Diabetes Screening [facility] Start: 10-15-2027 Lipid 1996 panel - Serum or Plasma Lipid Screening [facility] Start: 10-15-2027 Lipid panel Lipid Screening [facility] Start: 10-15-2027 LIPID SCREEN LIPID SCREEN [facility] Start: 03-27-2027 Diabetes Screening Diabetes Screening [facility] Start: 08-15-2026 LIPID SCREEN LIPID SCREEN [facility] Start: 05-21-2026 Diabetes Screening Diabetes Screening [facility] Start: 05-04-2026 End: 10-11-2026 VISUAL FIELD 24-2 OU (BOTH EYES) VISUAL FIELD 24-2 OU (BOTH EYES) [facility] Imaging Routine Secondary glaucoma, indeterminate stage, bilateral Expected: 05/04/2026, Expires: 10/11/[address] [facility] Work Phone: Comment on above: Expected: 05/04/2026, Expires: Start: 04-22-2026 Annual PCP Team Chronic Disease Visit Annual PCP Team Chronic Disease Visit [facility] Start: 12-29-2025 Annual PCP Team Chronic Disease Visit Annual PCP Team Chronic Disease Visit [facility] Start: 12-29-2025 BP Controlled (<130/80) BP Controlled (<130/80) [facility] Start: 11-19-2025 Annual PCP Team Chronic Disease Visit Annual PCP Team Chronic Disease Visit [facility] Start: 11-19-2025 BP Controlled (<130/80) BP Controlled (<130/80) [facility] Start: 11-03-2025 Annual PCP Team Chronic Disease Visit Annual PCP Team Chronic Disease Visit [facility] Start: 11-03-2025 BP Controlled (<130/80) BP Controlled (<130/80) [facility] Start: 10-21-2025 Screening for malignant neoplasm of breast Mammogram Screening [facility] Start: 10-15-2025 DIABETES SCREEN DIABETES SCREEN [facility] Start: 10-12-2025 Annual PCP Team Chronic Disease Visit Annual PCP Team Chronic Disease Visit [facility] Start: 10-12-2025 Anxiety Screening Anxiety Screening [facility] Start: 10-12-2025 BP Controlled (<130/80) BP Controlled (<130/80) [facility] Start: 10-12-2025 Covid-19 Vaccine () Covid-19 Vaccine () [facility] Comment on above: Postponed from 05/03/2024 (Declined at t his time) Start: 10-12-2025 Depression Screening Depression Screening [facility] Start: 10-07-2025 Annual PCP Team Chronic Disease Visit Annual PCP Team Chronic Disease Visit [facility] Start: 10-07-2025 BP Controlled (<130/80) BP Controlled (<130/80) [facility] Start: 09-29-2025 Annual PCP Team Chronic Disease Visit Annual PCP Team Chronic Disease Visit [facility] Start: 09-15-2025 BP Controlled (<130/80) BP Controlled (<130/80) [facility] Start: 07-23-2025 End: 07-23-2025 Patient encounter procedure 07/23/2025 2:00 PM EST Office Visit Internal Medicine [place] [address] [place], [place] [phone] Ifeoma Davis MD [address] [place], [place] [phone] 3 month F/U Internal Medicine [place] Comment on above: 3 month F/U Start: 07-10-2025 [facility] Start: 07-10-2025 End: 07-10-2025 Emergency department patient visit Departed Emergency -Emergency Department Work Phone: Start: 06-29-2025 SARS-CoV-2, Influenza & RSV (PCR) SARS-CoV-2, Influenza & RSV (PCR) [facility] Start: 06-29-2025 [facility] Start: 06-29-2025 Plain chest X-ray Chest 1 View (Portable) [facility] Start: 06-29-2025 End: 06-29-2025 Emergency department patient visit Departed Emergency -Emergency Department Work Phone: Start: 06-23-2025 [facility] Start: 06-23-2025 CT angiography of head and neck CTA Head AND Neck W/ Contrast [facility] Start: 06-23-2025 CT of head without contrast Brain/Head without Contrast [facility] Start: 06-23-2025 End: 06-23-2025 Emergency department patient visit Departed Emergency -Emergency Department Work Phone: Start: 06-21-2025 MRI of lower extremity Extremity Lower without Contra [facility] Start: 06-21-2025 Patient encounter procedure Registered Clinical -Cat Scan [facility] Work Phone: Start: 06-09-2025 End: 06-09-2025 Patient encounter procedure 06/09/2025 12:30 PM EDT Office Visit [facility] [address] [address] Adriana Lund MD [address] [place] [address] Diagnostics[facility] [address] [place] [id number] 10 WEEK OUTCOME Ophthalmology Comment on above: 10 WEEK OUTCOME Start: 06-04-2025 Plain x-ray of pelvis and lower extremity HIP, UNI W/ Pelvis 2-3 Views [facility] Start: 06-04-2025 XR Pelvis and Hip Views [facility] Start: 05-27-2025 [facility] Start: 05-27-2025 End: 05-27-2025 Emergency department patient visit Departed Emergency -Emergency Department Work Phone: Start: 05-27-2025 End: 05-27-2025 Patient encounter procedure 05/27/2025 9:20 AM EDT Office Visit Internal Medicine [place] [address] [place] [address] Ifeoma Davis MD [address] [place] [address] Wellness [facility] [place] Comment on above: Wellness Start: 05-18-2025 End: 05-18-2025 Patient encounter procedure 05/18/2025 11:00 AM EDT Office Visit [facility] [address] [place] [address] Cynthia Ramos MD [address] [place] [phone] 4 week VaTa [facility] Comment on above: 4 week VaTa Start: 05-12-2025 End: 05-12-2025 Patient encounter procedure 05/12/2025 11:00 AM EDT Office Visit [facility] [address] [address] Adriana Lund MD [address] [place] [address] [facility] [address] [address] 6 WEEK OUTCOME Ophthalmology Comment on above: 6 WEEK OUTCOME Start: 05-03-2025 DIABETES SCREEN DIABETES SCREEN [facility] Start: 05-03-2025 Influenza vaccination [facility] Start: 04-28-2025 End: 04-28-2025 Patient encounter procedure 04/28/2025 11:00 AM EDT Office Visit [facility] [address] [address] Adriana Lund MD [address] [place] [address] [facility] [address] [address] 3 WEEK POST OP Ophthalmology Comment on above: 3 WEEK POST OP Start: 04-22-2025 End: 04-22-2025 Patient encounter procedure 04/22/2025 10:20 AM EDT Office Visit Internal Medicine [place] [address] [place] [address] Ifeoma Davis MD [address] [place] [address] 3 month follow up Internal Medicine [place] Comment on above: 3 month follow up Start: 04-20-2025 End: 04-20-2025 Patient encounter procedure 04/20/2025 9:30 AM EDT Office Visit OP[facility] [address] [place] [address] Cynthia Ramos MD [address] [place] [address] SP 6 months refraction HVF 24-2 large size V [facility] Comment on above: SP 6 months refraction HVF 24-2 large si ze V Start: 04-16-2025 X-ray of lumbosacral spine L/S Spine Bending Flex/Ext [facility] Start: 04-16-2025 XR Spine Lumbar and Sacrum Views [facility] Start: 04-12-2025 Subsequent hospital visit by physician 04/12/2025 Hospital Encounter Ophthalmology [address] [address] Janet Lowery MD [address] [facility] [place] [address] 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, T81.31XA] Ophthalmology Comment on above: Leaking of conjunctival drainage bleb [H 59.89, T81.31XA] Start: 04-11-2025 BP Controlled (<130/80) BP Controlled (<130/80) [facility] Start: 04-06-2025 End: 04-06-2025 Patient encounter procedure 04/06/2025 2:15 PM EDT Office Visit [facility] [address] [address] Janet Lowery MD [address] [facility] [place] [address] Diagnostics[facility] [address] [address] Michelle 04/06 for follow up Ophthalmology Comment on above: Michelle 04/06 for follow up Start: 04-02-2025 End: 04-02-2025 Patient encounter procedure Ophthalmology Comment on above: 1 WEEK POST OP Start: 03-31-2025 Annual PCP Team Chronic Disease Visit Annual PCP Team Chronic Disease Visit [facility] Start: 03-31-2025 BP Controlled (<130/80) BP Controlled (<130/80) [facility] Start: 03-30-2025 End: 03-30-2025 Patient encounter procedure 03/30/2025 2:00 PM EDT Office Visit Internal Medicine [place] [address] [place] [address] Ifeoma Davis MD [address] [place] [address] 3 month follow up Internal Medicine [place] Comment on above: 3 month follow up Start: 03-26-2025 End: 03-26-2025 Patient encounter procedure 03/26/2025 8:15 AM EDT Office Visit [facility] [address] [address] Adriana Lund MD [address] [place] [address] 1 DAY POST OP bleb leak repair OS Ophthalmology Comment on above: 1 DAY POST OP bleb leak repair OS Start: 03-25-2025 End: 03-25-2025 Admission to same day surgery center 03/25/2025 12:01 PM EDT - 03/25/2025 12:59 PM EDT Surgery Ophthalmology [address] [address] Adriana Lund MD [address] [address] 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 Ophthalmology Comment on above: REV OR 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 WOUND EYE ANTERI OR SEGMENT MAJOR Start: 03-25-2025 End: 03-25-2025 Anesthesia consultation 03/25/2025 12:01 PM EDT Anesthesia Event Ophthalmology [address] [address] Marquita Aj SRNA Ophthalmology Start: 03-25-2025 Subsequent hospital visit by physician 03/25/2025 12:01 PM EDT Hospital Encounter Ophthalmology [address] [address] Adriana Lund MD [address] [place] [address] 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, T81.31XA] Ophthalmology Comment on above: Leaking of conjunctival drainage bleb [H 59.89, T81.31XA] Start: 03-25-2025 End: 03-25-2025 Revj/rpr oprative wound anterior segment [facility] Start: 03-24-2025 End: 03-24-2025 Patient encounter procedure [...] Lumbar Spine 2 or 3 Views [facility] Start: 03-10-2025 XR Lumbar spine 2 or 3 Views [facility] Start: 03-02-2025 End: 03-02-2025 Nursing evaluation of patient and report 03/02/2025 12:45 PM EDT Nurse Visit Family [facility] [place] [address] [place], [place] [phone] Nurse, [place] [address] [place], [place] [phone] Tdap [facility] [place] Comment on above: Tdap Start: 03-01-2025 Influenza [facility] Comment on above: Postponed from 05/03/2024 (Declined at t his time) Start: 12-29-2024 End: 12-29-2024 Patient encounter procedure 12/29/2024 3:00 PM EDT Office Visit Internal Medicine [place] [address] [facility] [place], [place] [phone] Ifeoma Davis MD [address] [place] [address] 6 week follow up Internal Medicine [place] [...] EDT Office Visit [facility] Medicine [place] [address] [place], [place] [phone] David Anna APRN.MOLECULAR SPECTROSCOPIST [address] [place], [place] [phone] 2 wk follow up Internal Medicine [place] Comment on above: 2 wk follow up Start: 11-17-2024 End: 11-17-2024 Patient encounter procedure 11/17/2024 9:00 PM EDT Office Visit [facility] [address] [place] [phone] Snoring [R06.83]; Excessive daytime sleepiness [G47.19]; Non-restorative sleep [G47.8]; PLMD (periodic limb movement disorder) [G47.61]; Primary hypertension [I10] [facility] Comment on above: Snoring [R06.83]; Excessive daytime slee piness [G47.19]; Non-restorative sleep [G47.8]; PLMD (periodic limb movement disorder) [G47.61]; Primary hypertension [I10] Start: 11-17-2024 BP Controlled (<130/80) BP Controlled (<130/80) [facility] Start: 11-03-2024 End: 02-02-2025 25-hydroxyvitamin D3 [Mass/volume] in Serum or Plasma [facility] Comment on above: Expected: 11/03/2024, Expires: Start: 11-03-2024 End: 02-02-2025 Cobalamin (Vitamin B12) [Mass/volume] in Serum or Plasma [facility] Comment on above: Expected: 11/03/2024, Expires: Start: 11-03-2024 End: 02-02-2025 Ferritin [Mass/volume] in Serum or Plasma [facility] Comment on above: Expected: 11/03/2024, Expires: Start: 11-03-2024 End: 02-02-2025 Iron and Iron binding capacity panel - Serum or Plasma [facility] Work Phone: Comment on above: Expected: 11/03/2024, Expires: Start: 11-03-2024 End: 11-03-2024 Patient encounter procedure 11/03/2024 2:00 PM EST Office Visit Internal Medicine [place] [address] [place], [place] [phone] Ifeoma Davis MD [address] [place] [address] 1 month follow up [facility] Medicine [place] Comment on above: 1 month follow up Start: 11-03-2024 End: 02-02-2025 Thyrotropin [Units/volume] in Serum or Plasma [facility] Comment on above: Expected: 11/03/2024, Expires: Start: 11-03-2024 End: 02-02-2025 Thyroxine (T4) free [Mass/volume] in Serum or Plasma [facility] Comment on above: Expected: 11/03/2024, Expires: Start: 10-13-2024 End: 10-13-2024 Patient encounter procedure 10/13/2024 10:15 AM EST Office Visit [facility] [address] [place] [address] Cynthia Ramos MD [address] [place], [place] [address] SP 6 months VaTa and mac OCT [facility] Comment on above: SP 6 months VaTa and mac OCT Start: 10-12-2024 End: 10-12-2024 Patient encounter procedure 10/12/2024 3:00 PM EST Office Visit Internal Medicine Barbara [address] [place] [address] Ifeoma Davis MD [address] [place], [place] [address] follow up increase memory loss. decline in adls/ gait [facility] [place] Comment on above: follow up increase memory loss. decline in adls/ gait Start: 10-10-2024 Screening for malignant neoplasm of breast Mammogram Screening [facility] Start: 10-07-2024 End: 10-07-2024 Patient encounter procedure 10/07/2024 2:00 PM EST Office Visit Neurology [address] [place] [address] Michelle Chin APRN.MOLECULAR SPECTROSCOPIST [address] [place] [address] DAYSI (obstructive sleep apnea) [G47.33] Neurology Comment on above: DAYSI (obstructive sleep apnea) [G47.33] Start: 09-29-2024 End: 09-29-2024 Patient encounter procedure [facility] Comment on above: 6 mo follow up; routine 6 mo follow up; rout ine - HTN focus Drew Start: 09-27-2024 Annual PCP Team Chronic Disease Visit Annual PCP Team Chronic Disease Visit [facility] Start: 09-24-2024 End: 09-24-2024 Patient encounter procedure 09/24/2024 3:00 PM EST Office Visit Neurology [address] [place] [address] Michelle Chin APRN.MOLECULAR SPECTROSCOPIST [address] [place] [address] F/U Neurology Comment on above: F/U Start: 09-02-2024 Medicare Advantage Annual Wellness Visit Medicare Advantage Annual Wellness Visit [facility] Start: 08-18-2024 End: 08-18-2024 Patient encounter procedure 08/18/2024 12:45 PM EST Office Visit OPHT [facility] [address] [place] [address] Cynthia Ramos MD [address] [place] [address] SP 6 months VaTa and mac OCT [facility] Comment on above: SP 6 months VaTa and mac OCT Start: 08-15-2024 DIABETES SCREEN DIABETES SCREEN [facility] Start: 08-13-2024 End: 08-13-2024 Patient encounter procedure 08/13/2024 1:00 PM EST Office Visit Neurology [address] [place] [address] Michelle Chin APRN.MOLECULAR SPECTROSCOPIST [address] [place] [address] DAYSI (obstructive sleep apnea) [G47.33] Neurology Comment on above: DAYSI (obstructive sleep apnea) [G47.33] Start: 07-23-2024 End: 07-23-2024 Patient encounter procedure 07/23/2024 11:20 AM EST Office Visit Orthopaedics [address] [place] [address] Massimo Roberts MD [address] [place] [address] rt wrist discuss surgery Orthopaedics Comment on above: rt wrist discuss surgery Start: 06-29-2024 HPV TESTING HPV TESTING [facility] Start: 06-29-2024 PAP TESTING PAP TESTING [facility] Start: 06-29-2024 Screening for malignant neoplasm of cervix [facility] Start: 06-22-2024 Colonoscopy COLONOSCOPY [facility] Start: 06-22-2024 COLORECTAL CANCER SCREENING COLORECTAL CANCER SCREENING [facility] Start: 06-18-2024 End: 06-18-2024 Patient encounter procedure 06/18/2024 12:50 PM EDT Appointment Mammogram [address] [place], [place] [id number] Encounter for screening mammogram for malignant neoplasm of breast [Z12.31] Mammogram Comment on above: Encounter for screening mammogram for ma lignant neoplasm of breast [Z12.31] Start: 06-04-2024 End: 06-04-2024 Patient encounter procedure 06/04/2024 12:30 PM EDT Office Visit Vasculary Surgery [address] [place] [address] 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] Vasculary Surgery Comment on above: 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] Start: 05-21-2024 Annual PCP Team Chronic Disease Visit Annual PCP Team Chronic Disease Visit [facility] Start: 05-21-2024 BP Controlled (<130/80) BP Controlled (<130/80) [facility] Start: 05-03-2024 Covid-19 Vaccine ( season) Covid-19 Vaccine () [facility] Start: 05-03-2024 Covid-19 Vaccine ( season) Covid-19 Vaccine ( season) [facility] Start: 05-03-2024 Influenza vaccination [facility] Start: 04-30-2024 BP CONTROLLED (<130/80) BP CONTROLLED (<130/80) [facility] Start: 03-31-2024 End: 06-30-2024 Hepatitis C virus Ab [Presence] in Serum [facility] Work Phone: Comment on above: Expected: 03/31/2024, Expires: Start: 03-31-2024 End: 06-30-2024 HIV 1+2 Ab [Presence] in Serum or Plasma by Immunoassay [facility] Comment on above: Expected: 03/31/2024, Expires: [...] Routine Medication management Expected: 03/17/2024, Expires: 06/16/2024 [facility] Comment on above: Expected: 03/17/2024, Expires: Start: 03-17-2024 End: 06-16-2024 Lipid 1996 panel - Serum or Plasma LIPID PANEL BASIC Lab Routine Mixed hyperlipidemia Expected: 03/17/2024, Expires: 06/16/2024 [facility] Comment on above: Expected: 03/17/2024, Expires: Start: 02-18-2024 End: 02-18-2024 Patient encounter procedure 02/18/2024 12:30 PM EDT Office Visit OPHT [facility] [address] [place], [place] [address] Cynthia Ramos MD [address] [place], [place] [id number] 6m follow up [facility] Comment on above: 6m follow up Start: 12-11-2023 BP CONTROLLED (<130/80) BP CONTROLLED (<130/80) [facility] Start: 10-16-2023 ANNUAL PCP TEAM CHRONIC DISEASE VISIT ANNUAL PCP TEAM CHRONIC DISEASE VISIT [facility] Start: 10-16-2023 BP CONTROLLED (<130/80) BP CONTROLLED (<130/80) [facility] Start: 09-27-2023 Mammography [facility] Start: 09-27-2023 Screening for malignant neoplasm of breast Mammogram Screening [facility] Start: 09-02-2023 Behavioral Health Screening Behavioral Health Screening [facility] Start: 09-02-2023 Depression Assessment Depression Assessment [facility] Start: 06-25-2023 BP CONTROLLED (<130/80) BP CONTROLLED (<130/80) [facility] Start: 06-20-2023 BP CONTROLLED (<130/80) BP CONTROLLED (<130/80) [facility] Start: 06-04-2023 ANNUAL PCP TEAM CHRONIC DISEASE VISIT ANNUAL PCP TEAM CHRONIC DISEASE VISIT [facility] Start: 05-03-2023 Covid-19 Vaccine ( season) Covid-19 Vaccine ( season) [facility] Start: 05-03-2023 Influenza vaccination [facility] Start: 02-09-2023 BP CONTROLLED (<130/80) BP CONTROLLED (<130/80) [facility] Start: 12-25-2022 ANNUAL PCP TEAM CHRONIC DISEASE VISIT ANNUAL PCP TEAM CHRONIC DISEASE VISIT [facility] Start: 12-04-2022 BP CONTROLLED (<130/80) BP CONTROLLED (<130/80) [facility] Start: 10-23-2022 ANNUAL PCP TEAM CHRONIC DISEASE VISIT ANNUAL PCP TEAM CHRONIC DISEASE VISIT [facility] Start: 10-16-2022 End: 12-16-2022 Follitropin [Units/volume] [...] 3 Start: 09-02-2022 DEPRESSION ASSESSMENT DEPRESSION ASSESSMENT [facility] Start: 08-21-2022 Mammography MAMMOGRAM [facility] Start: 06-27-2022 End: 06-20-2023 Echocardiography ECHO Cardiology Routine PXE (pseudoxanthoma elasticum) Expected: 06/27/2022, Expires: 06/20/[address] [facility] Work Phone: Comment on above: Expected: 06/27/2022, Expires: 3 Start: 05-03-2022 Influenza vaccination [facility] Start: 03-20-2022 End: 05-20-2022 CBC panel [...] 2 Start: 09-02-2021 DEPRESSION ASSESSMENT DEPRESSION ASSESSMENT [facility] Start: 07-28-2019 Adult depression screening assessment DEPRESSION SCREENING [facility] Start: 2019 Pneumococcal Vaccine: 50+ (1 of 1 - PCV) Pneumococcal Vaccine: 50+ (1 of 1 - PCV) [facility] Start: 2019 SHINGRIX VACCINE (1 of 2) SHINGRIX VACCINE (1 of 2) [facility] Start: 2014 COLOGUARD (FIT-DNA) COLOGUARD (FIT-DNA) [facility] Start: [address] COLONOGRAPHY [facility] Start: 2014 FECAL OCCULT BLOOD FECAL OCCULT BLOOD [facility] Start: 2014 Screening for malignant neoplasm of colon [facility] Start: 2014 SIGMOIDOSCOPY SIGMOIDOSCOPY [facility] Start: 1988 Hepatitis B Vaccine (1 of 3 - 19+ 3-dose series) Hepatitis B Vaccine (1 of 3 - 19+ 3-dose series) [facility] Start: 1988 SHINGRIX VACCINE (1 of 2) SHINGRIX VACCINE (1 of 2) [facility] Start: 1988 Urine microalbumin profile [facility] Start: 1987 Anxiety Screening Anxiety Screening [facility] Start: 1987 BP CONTROLLED (<130/80) BP CONTROLLED (<130/80) [facility] Start: 1987 Depression Screening Depression Screening [facility] Start: 1987 HEPATITIS C SCREENING HEPATITIS C SCREENING [facility] Start: 1987 Hepatitis C screening Hepatitis C Screening [facility] Start: 1987 HIV SCREENING HIV SCREENING [facility] Start: 1987 HIV screening HIV Screening [facility] Start: 1981 COVID-19 VACCINE (1) COVID-19 VACCINE (1) [facility] Start: 1975 PNEUMOCOCCAL (1 - PCV) PNEUMOCOCCAL (1 - PCV) [facility] Start: 1974 COVID-19 VACCINE (#1) COVID-19 VACCINE (#1) [facility] Start: 1969 COVID-19 VACCINE (#1) COVID-19 VACCINE (#1) [facility] Start: 1969 HEPATITIS B (1 of 3 - 3-dose series) HEPATITIS B (1 of 3 - 3-dose series) [facility] Start: 1969 Hepatitis B Vaccine (1 of 3 - 3-dose series) Hepatitis B Vaccine (1 of 3 - 3-dose series) [facility] Bacteria identified in Urine by Culture [...] [facility] Work Phone: MR Lumbar spine [facility] End: 01-24-2023 Mri brain brain stem [...] cervical cancer screening 12/24/2023 1:43 PM EDT [facility] Patient Education [facility] Work Phone: End: 07-09-2025 Polysomnogram POLYSOMNOGRAM (PSG) [...] SEGMENT MAJOR Leaking of conjunctival drainage bleb [facility] End: 01-03-2023 Screening mammography bi [...] Phone: XR Spine Lumbar and Sacrum Views [facility] Immunizations Immunization Date Immunization Notes Care Provider Adwoa matthews 03-02-2025 tetanus toxoid, redu leona diphtheria toxoid, and acellular pertussis vaccine, adsorbed Mi Nurse Work Phone: [facility] 02-25-2025 diphtheria, tetanus toxoids and acellular pertussis vaccine, unspecified formulation Ifeoma Davis MD Work Phone: [facility] Payers Date Payer Category Payer Self-pay [id number] 2021 Medicaid [id number] 2021 Medicaid [id number] 2020 Medicaid [id number] 2019 Medicare (Managed Care) [facility] [id number] 2017 Unknown [place] AND BLUE SHIELD ANTHUMU [facility] [id number] 2017-Present [phone] [address] [place] [address] [facility] [id number] 2017 Unknown [id number]. 1.13.159.2. [id number] 2017 Unknown [id number] 2014 Unknown [id number] Unknown [id number] 2.16.840.1.656844.3.579.2. 462 Unknown [id number] 2.16.840.1.345433.3.579.2. 462 Unknown [id number] 2.16.840.1.845183.3.579.2. 462 Unknown [id number] 2.16.840.1.106310.3.579.2. 462 Unknown [id number] 2.16.840.1.798960.3.579.2. 462 Unknown [id number] 2.16.840.1.593870.3.579.2. 462 Unknown [id number] 2.16.840.1.348308.3.579.2. 462 Unknown [id number] 2..840.1.254501.3.579.2. 462 Unknown [id number] 2.16.840.1.082127.3.579.2. 462 Unknown [id number] 2..840.1.874435.3.579.2. 462 Unknown [id number] 2.16.840.1.864698.3.579.2. 462 Unknown [id number] 2.16.840.1.517407.3.579.2. 462 Unknown [id number] 2.16.840.1.293756.3.579.2. 462 Unknown [id number] 2.16.840.1.576844.3.579.2. 462 Unknown [id number] 2.16.840.1.603798.3.579.2. 462 Unknown [id number] 2.16.840.1.093365.3.579.2. 462 Unknown [id number] 2.16.840.1.538719.3.579.2. 462 Unknown [id number] 2.16.840.1.958067.3.579.2. 462 Unknown [id number] 2.16.840.1.289195.3.579.2. 462 Unknown [id number] 2.16.840.1.897389.3.579.2. 462 Social History Date Type Detail Facility Start: 12-09-2014 End: 07-10-2025 Tobacco smoking status NHIS Never smoked tobacco [facility] Work Phone: Start: 11-28-2021 End: 04-22-2025 Alcohol intake Current non-drinker of alcohol (finding) [facility] Start: 11-21-2020 History SDOH Social Connections Phone 5 [facility] Start: 11-21-2020 History SDOH Social Connections Religious 3 [facility] Start: 11-21-2020 History SDOH Social Connections Membership 1 [facility] Start: 11-21-2020 History SDOH Physica l Activity DPW 7 [facility] Start: 11-21-2020 History SDOH Physica l Activity MPS 2 [facility] Start: 1970 Sex Assigned At Not on file C [facility] Start: 12-15-2021 End: 06-25-2022 Exposure to SARS-CoV-2 (event) Not sure [facility] Work Phone: Start: 12-09-2014 End: 03-24-2025 Tobacco use and exposure Smokeless tobacco non-user [facility] Start: 1970 Sex Assigned At Female C [facility] Start: 11-20-2021 End: 11-06-2023 Tobacco smoking status NHIS Unknown if ever smoked [facility] Start: 11-21-2020 End: 12-24-2023 History of Social function [facility] Work Phone: Start: 11-21-2020 End: 12-24-2023 Social connection and isolation panel [facility] Work Phone: Do you belong to any clubs or organizations such as anabaptism groups, unions, fraternal or athletic groups, or school groups? Yes [facility] Work Phone: Are you now , , , , never or living with a partner? [facility] Work Phone: Start: 08-03-2012 Adult Depression Screening Assessment 0 [facility] Work Phone: Do you feel stress - tense, restless, nervous, or anxious, or unable to sleep at night because your mind is troubled all the time - these days [OSQ] Only a little [facility] Work Phone: Start: 09-18-2022 Gender identity Identifies as female gender (finding) [facility] Start: 09-18-2022 Sexual orientation Heterosexual (fin ding) [facility] Start: 11-30-2024 Sex Female (finding) [facility] NEGATED: Highlighted rowStart: MICHAEL History of tobacco use Passive smoker [facility] Medical Equipment Procedure Code Equipment Code Equipment Origin al Text Equipment Identifier Dates Lens Acrysof Ultrasert +14.5 Diopter Acrylic Iol 1 Piece Foldable Uv Blue - [id number] Start: 06-25-2022 Lens Acrysof Ultrasert +15.5 Diopter Acrylic Iol 1 Piece Foldable Uv Blue - [id number] Start: 11-15-2022 Functional Status Date Assessment Result Facility 12-14-2014 Are you deaf, or do you have serious difficulty hearing No 12/14/2014 10:27 AM Celeste Bass LPN No [facility] 12-14-2014 Are you blind, or do you have serious difficulty seeing, even when wearing glasses Yes 12/14/2014 10:27 AM Celeste Bass LPN Yes [facility] 12-14-2014 Do you have serious difficulty walking or climbing stairs No 12/14/2014 10:27 AM Celeste Bass LPN No [facility] 12-14-2014 Do you have difficul ty dressing or bathing No 12/14/2014 10:27 AM Celeste Bass LPN No [facility] 12-14-2014 Because of a physica l, mental, or emotional condition, do you have difficulty doing errands alone such as visiting a physician's office or shopping No 12/14/2014 10:27 AM Celeste Bass LPN No [facility] Mental Status Date Assessment Result Facility 07-10-2025 Cognitive function Level Of Cons ciousness Awake [facility] Work Phone: 06-29-2025 Cognitive function Level Of Cons ciousness Awake [facility] Work Phone: 06-23-2025 Cognitive function Level Of Cons ciousness Awake [facility] Work Phone: 06-17-2025 Cognitive function Level Of Cons ciousness Awake [facility] Work Phone: 12-14-2014 Because of a physica l, mental, or emotional condition, do you have serious difficulty concentrating, remembering, or making decisions No 12/14/2014 10:27 AM EDT Celeste Gomez LPN No [facility] Clinical Notes 11-28-2021 to 07-13-2025 Note Date & Type Note Facility 07-13-2025 Note [facility] 07-13-2025 Note [facility] 07-06-2025 Note [facility] 07-06-2025 Note [facility] 07-05-2025 Note HNO ID: [id number] Author: CATIE LINDSEY RT(R) Service: ? Author Type: Technologist Type: Progress Notes Filed: 07/05/2025 15:55 Note Text: xray: chest [facility] 07-02-2025 Note [facility] 07-01-2025 Note [facility] 07-01-2025 Note [facility] 06-30-2025 Note [facility] 06-30-2025 Note [facility] 06-30-2025 Note [facility] 06-23-2025 Discharge summary [facility] 06-23-2025 Radiology Diagnostic study note [facility] Imaging Services [address] [place], [place] [address] Brain/Head without Contrast MR#: [id number] Acct: [id number] Name: ALLIE LYNN Rep #: [id number] : 1970 F 55 From: Eric June MD PCP: Dr. Ifeoma Davis MD Status: REG E R Study:Brain/Head without Contrast Date of Exa m: 06/23/25 Exam# [id number] Ordering Dr: Geovanni Rosen DO PROCEDURE: CT [...] subarachnoid spaces are normal in size. Absent pitka's point ocular lenses. Intact skull base and calvarium. [...] or high-grade stenosis. No aneurysm. Reading Location: [facility] CC: Dr. Geovanni Sorto DO; Dr. Ifeoma Davis MD ~ Receiving Supervisor: Signed [facility] 06-23-2025 Radiology Diagnostic study note [facility] Imaging Services [address] [place] [address] CTA Head AND Neck W/ Contrast MR#: [id number] Acct: [id number] Name: ALLIE LYNN Rep #: [id number] : 1970 F 55 From: [facility] franki June MD PCP: Dr. Ifeoma Davis MD Status: REG E R Study:CTA Head AND Neck W/ Contrast Date of E xam: 06/23/25 Exam# [id number] Ordering Dr: Geovanni Rosen DO PROCEDURE: CT [...] subarachnoid spaces are normal in size. Absent pitka's point ocular lenses. Intact skull base and calvarium. [...] or high-grade stenosis. No aneurysm. Reading Location: [id number] CC: Dr. Geovanni Sorto DO; Dr. Ifeoma Davis MD ~ Receiving Supervisor: Signed [facility] 06-23-2025 Discharge summary Note Date/Time June 23, 2025 10:15pm [facility] Medical Records Department [address] [place] [address] Emergency Department Summary 06/23/25 MR#: [id number] Acct: [id number] Name: ALLIE LYNN Rep #:[id number] : 1970 55 From: Geovanni cody DO [...] intact Psych: Cooperative, appropriate [facility] History (Updated 06/23/25 @ 20:49 by [...] mg-325 0.5 - 1 tab PO TID MD N pain 03/10/25 Unknown History mg tablet cyclobenzaprine 10 mg tablet 10 mg PO HS MUSCLE SPASM 06/04/25 Unknown History Lactobacillus 25 billion 1 cap PO DAILY SUPPLMENT 06/26 Unknown History cell-Bifido 25 billion znav-RHA-cwuxr capsule cevimeline 30 mg capsule 1 cap [...] artery. Vascular surgery, Dr. Hinojosa was consulted. 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 Recommended [...] (Auto) 67.2 Lymph % (Auto) 17.9 L Harvey % (Auto) 11.9 H Eos % (Auto) [...] or high-grade stenosis. No aneurysm. Reading Location: [facility] Head/Neck CTA 06/23/25 19:05 IMPRESSION: No [...] or high-grade stenosis. No aneurysm. Reading Location: [facility] Discharge Plan Triage Chief Complaint: Headache [...] mg capsule 1 cap PO DAILY Lacto no.68-Fhugmm-JPK-larch 25B cell-25B cell-50 mg capsule 1 cap PO DAILY Primary Care Provider: Ifeoma Davis Referrals: Ifeoma Davis MD [Primary Care Provider, Internal Medicine] - 3-5 Days Activity Restrictions/Additional Instructions: Follow-up with your primary care physician. Return back to ED if symptoms change or worsen. Print Language: [place] Disposition Disposition: Home, Self Care Discharge Date/Time: 06/23/25 21:15 What to do if you have Problems For any increased pain, shortness of breath, bleeding, nausea or vomiting, chestpain, or any unexpected problems, contact your Primary Care Provider. Call [facility] ([phone]) or report to the closest Emergency Room. Call 911 if necessary. 06/24/25 0025 <Electronically signed by Geovanni Sorto DO> Cosigner Signature (if applicable): CC: Dr. Ifeoma Davis MD ~ Signed [facility] Work Phone: 1(480) 842-821110-16-2025 Discharge summary [facility] Medical Records Department [address] [place] [address] Emergency Department Summary 06/17/25 MR#: [id number] Acct: [id number] Name: ALLIE LYNN Rep #:[id number] : 1970 55 From: Patti Piña DO [...] high risk to have the surgery. [facility] Medical History (Updated 06/17/25 @ 19:32 [...] mg-325 0.5 - 1 tab PO TID MD N pain 03/10/25 Unknown History mg tablet cyclobenzaprine 10 mg tablet 10 mg PO HS MUSCLE SPASM 06/04/25 Unknown History Lactobacillus 25 billion 1 cap PO DAILY SUPPLMENT 06/26 Unknown History cell-Bifido 25 billion vvvg-VMX-kcwjy capsule cevimeline 30 mg capsule 1 cap [...] she believes with a vascular surgeon in [facility] next Saturday which is in 5 [...] provider Patti Piña 06/17/2025 at 6 p.m. CATERING ASSOCIATE. Reading Location: [facility] Head/Neck CTA 06/17/25 18:12 IMPRESSION: 1. [...] provider Patti Piña 06/17/2025 at 6 p.m. CATERING ASSOCIATE. Reading Location: [facility] Discharge Plan Triage Chief Complaint: Headache [...] mg capsule 1 cap PO DAILY Lacto no.22-Jbxqka-POW-larch 25B cell-25B cell-50 mg capsule 1 cap PO DAILY Primary Care Provider: Ifeoma Davis Referrals: Ifeoma Davis MD [Primary Care Provider, Internal Medicine] Quincy Hinojosa MD [Med Staff - Active Staff, Vascular Surgery] - 5-7 Days Print Language: [place] Disposition Disposition: Home, Self Care What to do if you have Problems For any increased pain, shortness of breath, bleeding, nausea or vomiting, chestpain, or any unexpected problems, contact your Primary Care Provider. Call [facility] ([phone]) or report tothe closest Emergency Room. Call 911 if necessary. 06/17/256 Cosigner Signature (if applicable): CC: Dr. Ifeoma Davis MD ~ Signed [facility]10-16-2025 Radiology Diagnostic study note [facility] Imaging Services [address] [place] [address] Brain/Head without Contrast MR#: [id number] Acct: [id number] Name: ALLIE LYNN Rep #: [id number] : 1970 F 55 From: Eric June MD PCP: Dr. Ifeoma Davis MD Status: REG E R Study:Brain/Head without Contrast Date of Exa m: 06/17/25 Exam# [id number] Ordering Dr: Stacey Piña DO PROCEDURE: CT [...] subarachnoid spaces are normal in size. Absent pitka's point ocular lenses. Intact skull base and calvarium. [...] cavernous/supraclinoid segment. Findings communicated with provider Patti Piañ 06/17/2025 at 6 p.m. CATERING ASSOCIATE. Reading Location: [id number] CC: Dr. Ifeoma Davis MD; Dr. Patti Piña DO ~ Receiving Supervisor: Signed [facility]10-16-2025 Radiology Diagnostic study note [facility] Imaging Services [address] [place], [place] [address] CTA Head AND Neck W/ Contrast MR#: [id number] Acct: [id number] Name: ALLIE LYNN Rep #: [id number] : 1970 F 55 From: Eric June MD PCP: Dr. Ifeoma Davis MD Status: REG E R Study:CTA Head AND Neck W/ Contrast Date of E xam: 06/17/25 Exam# [id number] Ordering Dr: Stacey Piña DO PROCEDURE: CT [...] subarachnoid spaces are normal in size. Absent pitka's point ocular lenses. Intact skull base and calvarium. [...] provider Patti Piña 06/17/2025 at 6 p.m. CATERING ASSOCIATE. Reading Location: [id number] CC: Dr. Ifeoma Davis MD; Dr. Patti Piña, DO ~ Receiving Supervisor: Signed [facility] [id number] Discharge summary Author Patti Piña [facility] Note Date/Time June 17, 2025 7 :48pm [facility] Medical Records Department [address] [place] [address] Emergency Department Summary 06/17/25 MR#: [id number] Acct: [id number] Name: ALLIE LYNN Rep #:[id number] : 1970 55 From: Patti Piña DO [...] high risk to have the surgery. [facility] Medical History (Updated 06/17/25 @ 19:32 [...] mg-325 0.5 - 1 tab PO TID MD N pain 03/10/25 Unknown History mg tablet cyclobenzaprine 10 mg tablet 10 mg PO HS MUSCLE SPASM 06/04/25 Unknown History Lactobacillus 25 billion 1 cap PO DAILY SUPPLMENT 06/26 Unknown History cell-Bifido 25 billion ibix-CTO-xlezk capsule cevimeline 30 mg capsule 1 cap [...] she believes with a vascular surgeon in [facility] next Saturday which is in 5 [...] provider Patti Piña 06/17/2025 at 6 p.m. CATERING ASSOCIATE. Reading Location: [id number] Head/Neck CTA 06/17/25 18:12 IMPRESSION: 1. No [...] provider Patti Piña 06/17/2025 at 6 p.m. CATERING ASSOCIATE. Reading Location: [id number] Discharge Plan Triage Chief Complaint: Headache ED [...] mg capsule 1 cap PO DAILY Lacto no.15-Fjjddq-GBH-larch 25B cell-25B cell-50 mg capsule 1 cap PO DAILY Primary Care Provider: Ifeoma Davis Referrals: Ifeoma Davis MD [Primary Care Provider, Internal Medicine] Quincy Hinojosa MD [Med Staff - Active Staff, Vascular Surgery] - 5-7 Days Print Language: St Helenian Disposition Disposition: Home, Self Care What to do if you have Problems For any increased pain, shortness of breath, bleeding, nausea or vomiting, chestpain, or any unexpected problems, contact your Primary Care Provider. Call [facility] ([phone]) or report to the closest Emergency Room. Call 911 if necessary. 06/17/252232 <Electronically signed by Patti Piña DO> Cosigner Signature (if applicable): CC: Dr. Ifeoma Davis MD ~ Signed [facility] Work Phone: 1(345) 335-560409-26-2025 [facility]Bl[facility] Discharge summary [facility] Medical Records Department [address] [place] [address] Emergency Department Summary 05/27/25 MR#: [id number] Acct: [id number] Name: ALLIE LYNN Rep #:[id number] : 1970 55 From: Juan Manuel Turpin [...] QDAY 12/09/24 Unkn own History omega-3 720 lx-oxz-vzd-fish cap PO 12/09/24 Unknown Hi story oil-vit [...] mg-325 0.5 - 1 tab PO TID MD N pain 03/10/25 Unknown History mg tablet [...] motor deficits and no sensory deficits noted Jefferson Coma Scale: document GCS findings Spontaneous Obeys [...] narrative: Patient has a concussion. Per the [place] CT head rule and [place] rule imaging is not indicated. Patient was [...] mg tablet 200 mg PO QDAY vitamin N25-anhjv acid 500-400 mcg tablet 1 tab PO QDAY Rx Instructions: administer with a meal kh-5-nlc-epa-fish oil-vit D3 720 mg- 25 mcg capsule [...] Internal Medicine] - As Needed Print Language: [place]ian Disposition Disposition: Home, Self Care What to do if you have Problems For any increased pain, shortness of breath, bleeding, nausea or vomiting, chestpain, or any unexpected problems, contact your Primary Care Provider. Call [facility] ([phone]) or report tothe closest Emergency Room. Call 911 if necessary. 05/27/251913 Cosigner Signature (if applicable): CC: Dr. Ifeoma Davis MD ~ Signed [facility]09-25-2025 Discharge summary Author Juan Manuel Turpin [facility] Note Date/Time May 27, 2025 7:14pm [facility] Medical Records Department [address] [place] [address] Emergency Department Summary 05/27/25 MR#: [id number] Acct: [id number] Name: ALLIE LYNN ANN Rep #:[id number] : 1970 55 From: Juan Manuel Turpin [...] Prior similar symptoms: No Recent Illness/[facility]ospitalization: [facility] Medical History Hip arthritis Degenerative scoliosis [...] QDAY 12/09/24 Unkn own History omega-3 720 gb-aqs-hmy-fish cap PO 12/09/24 Unknown Hi story oil-vit [...] mg-325 0.5 - 1 tab PO TID MD N pain 03/10/25 Unknown History mg tablet [...] motor deficits and no sensory deficits noted Jefferson Coma Scale: document GCS findings Spontaneous Obeys [...] narrative: Patient has a concussion. Per the [place] CT head rule and [place] rule imaging is not indicated. Patient was [...] mg tablet 200 mg PO QDAY vitamin W65-popia acid 500-400 mcg tablet 1 tab PO QDAY Rx Instructions: administer with a meal hf-0-cnl-epa-fish oil-vit D3 720 mg- 25 mcg capsule [...] Internal Medicine] - As Needed Print Language: [place]ian Disposition Disposition: Home, Self Care What to do if you have Problems For any increased pain, shortness of breath, bleeding, nausea or vomiting, chestpain, or any unexpected problems, contact your Primary Care Provider. Call [facility] ([phone]) or report to the closest Emergency Room. Call 911 if necessary. 05/27/251913 <Electronically signed by Juan Manuel Turpin MD> Cosigner Signature (if applicable): CC: Dr. Ifeoma Davis MD ~ Signed [facility] Work Phone: 1(724) 716-159609-25-2025 NoteBlanch[facility]09-15-[facility]25 Telephone encounter Note* Telephone Encounter - Satish Hunter - 05/17/2025 4:44 PM EDT Images from the original note were not included. Fax received from [facility] dated 05/15/25, regarding New Rx Fax placed on provider desk for review/signature. [facility]09-15-2025 Miscellaneous Notes* Telephone Encounter - Satish Hunter - 05/17/2025 4:44 PM EDT Images from the original note were not included. Fax received from [facility] dated 05/15/25, regarding New Rx Fax placed on provider desk for review/signature. documented in this encounterA[facility]08-28-2025 Telephone encounter Note * Telephone Encounter - Mallory Morrison RN - 04/29/2025 8:26 AM EDT Call placed to patient and notified of below with verbalized understanding. Mallory Morrison RN [facility]08-28-2025 Miscellaneous Notes* Telephone Encounter - Mallory [...] advise, Mallory Morrison RN documented in this encounterAultman [facility]08-27-2025 Telephone encounter Note * Telephone Encounter - Ifeoma Davis MD - 04/28/2025 5:22 PM EDT Filed the medication as requested [facility]08-27-2025 Telephone encounter Note* Telephone Encounter - Audra Peñaloza RN - 04/28/2025 4:42 PM EDT Pt called in to see if provider had called in a steroid for her. I let her know that the provider had not gotten to the message as of yet. Please call and advise. Audra Babulski, RN [facility]08-27-2025 Telephone encounter Note* Telephone Encounter - [...] Please review and advise, Mallory Morrison RN [facility]08-21-2025 Telephone encounter Note* Telephone Encounter - Jackie Freitas MA - 04/22/2025 3:41 PM EDT The following approved medication requests have been transmitted electronically. Requested Prescriptions Signed Prescriptions Disp Refills fluconazole (DIFLUCAN) 150 mg tablet 10 tablet 0 Sig: Take 1 tablet by mouth once daily for 10 days. Authorizing Provider: IFEOMA DAVIS MA [facility]08-21-2025 Miscellaneous Notes* Telephone Encounter - Jackie [...] Brennan RN - 04/22/2025 11:[address] [facility] Barbara called for clarification on Fluconazole 150 mg instructions: 1 tab daily for 10 days (repeat in 3 days if needed) # 10. Please clarify and let Liliana Javier know. documented in this encounterAultman [facility]08-21-2025 Telephone encounter Note * Telephone Encounter - Ifeoma Davis MD - 04/22/2025 3:35 PM EDT I sent new rx. Ifeoma Flores MD [facility]08-21-2025 Telephone encounter Note* Telephone Encounter - Clint Brennan RN - 04/22/2025 11:[address] [facility] Barbara called for clarification on Fluconazole 150 mg instructions: 1 tab daily for 10 days (repeat in 3 days if needed) # 10. Please clarify and let Liliana Javier know. [facility]08-21-2025 Instructions* Patient Instructions* Ifeoma Davis MD - 04/22/2025 11:30 AM EDT We discussed your eye condition and recent surgery: - You reported ongoing issues with fluid leakage and discomfort following your eye surgery. The fluid leakage has improved, and your eye pressure is now stable. Continue following up with your photo print specialist as scheduled. - You mentioned a [...] not improve. - Follow up with your photo print specialist as scheduled. - Attend your MRI appointment on May 07 for your hip. - Let me know if you would like to proceed with an ENT referral for the Inspire device. Please contact the office if you have any questions or concerns. documented in this encounterAultman [facility]08-21-2025 NoteBl[facility]08-21-2025 History of Present illness Narrative* Ifeoma [...] Allie recently underwent eye surgery at the [facility] due to a significant decrease in [...] also mentions a recent dental visit at [facility], where she discussed treatment options for her [...] excuse any unintended typographical errors. Recording using Priceline software for draft documentation of the visit was discussed with the patient/authorized car sales representative; all questions welcomed and answered. 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 I have seen and examined this patient. I have discussed the case and the management of this patient's care with the Resident/Fellow/Film And Video Graphics Designer, if applicable. I also have reviewed and agree with the assessment and plan as stated above and agree with all of its relevant components. Cynthia Ramos MD April 20, 2025 11:06 AM documented in this encounterAultman [facility]08-19-2025 Instructions* Patient Instructions* Cynthia Ramos MD [...] weeks total after surgery documented in this encounterAultman [facility]08-15-2025 Evaluation note* Diagnosis Onset Date Resolution [...] left hip acute June 04 10:59am [facility] Work Phone: 1(346) 114-729608-10-2025 NoteBlanchard Valley [facility]08-10-2025 History of Present illness Narrative* Aislinn Reyes PA-C - 04/11/2025 1:39 PM EDT Images from the original note were not included. [facility] NOTE Ifeoma Davis MD [address] [facility] [address] Allie Lynn is a 54-year-old female with [...] the care of multiple specialists at the [facility]. She also has a history of [...] Dr. Cynthia Ramos M.D. [place] [address] SOCIAL HISTORY[3] Physical Exam: BP 110/62 Pulse [...] agrees with the treatment plan. Recording using Priceline software for draft documentation of the visit was discussed with the patient/authorized car sales representative; all questions welcomed and answered. Patient/authorized car sales representative agreed to proceed. Aislinn Reyes MPAS, [...] No Drug use: No documented in this encounterAultman [facility]08-10-2025 Instructions* Patient Instructions* Aislinn Reyes PA-C [...] please contact our office. documented in this encounterAultman [facility]08-02-2025 Telephone encounter Note * Telephone Encounter [...] concerns and asked them to call back [phone] at any time when available to discuss further. Shy Meier MD Ophthalmology Resident [facility] Work Phone: 1(530) 307-314808-02-2025 Miscellaneous Notes* Telephone Encounter - Shy Meier [...] concerns and asked them to call back [phone] at any time when available to discuss further. Shy Meier MD Ophthalmology Resident documented in this encounterAultman [facility]08-01-2025 History of Present illness Narrative* Adriana [...] 03/29/2025 1:29 PM EDT documented in this encounterAultman [facility]rville Hospital08-01-2025 NoteBl[facility]07-30-2025 Telephone encounter Note* Telephone Encounter - Gely Plascencia - 03/31/2025 2:22 PM EDT patient called, she lost her White Cap eye medication, requesting a new script [facility] Work Phone: [phone]) 132-546907-30-2025 Miscellaneous Notes* Telephone Encounter - Gely Plascencia - 03/31/2025 2:22 PM EDT patient called, she lost her White Cap eye medication, requesting a new script documented in this encounterAultman [facility]07-30-2025 Telephone encounter Note * Telephone Encounter - Ifeoma Davis MD - 03/31/2025 12:59 PM EDT Ordered as requested Regards, Ifeoma Davis MD [facility]07-30-2025 Miscellaneous Notes* Telephone Encounter - Ifeoma [...] advise, Mallory Morrison RN documented in this encounterAultman [facility]rville Hospital07-30-2025 Telephone encounter Note * Telephone Encounter - Gely Plascencia - 03/31/2025 12:12 PM EDT I contacted the patient and left a voicemail informing her that you will be seeing her instead of the other physician. Just a heads-up. [facility] Work Phone: [phone]) 212-4733040927-07-0036 Miscellaneous Notes* Telephone Encounter - Gely Plascencia [...] EDT YES. I can see her in [place] tomorrow (Sat) if she wants. Otherwise she has an appt Saturday with Dr. Ayala. I am on site and happy to come over if needed. * Telephone Encounter - Gely Plascencia - 03/30/2025 2:46 PM EDT The patient reports experiencing tearing from the left eye approximately four to five times daily. Is this considered normal? [phone] sx: 03/25/2025 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 [[id number]] - Eye - Left documented in this encounterAultman Orrville Hospital07-30-2025 Telephone encounter Note * Telephone Encounter - Adriana Lund MD - 03/31/2025 12:03 PM EDT I moved her back to my Saturday clinic schedule - I will see her Saturday instead of Dr. Ayala [facility]07-30-2025 Telephone encounter Note* Telephone Encounter - [...] Please review and advise, Mallory Morrison RN [facility]07-30-2025 Telephone encounter Note* Telephone Encounter - Gely Plascencia - 03/31/2025 8:17 AM EDT The patient has requested that you visit on Saturday to examine her eye. [facility]07-29-2025 Telephone encounter Note* Telephone Encounter - Adriana Lund MD - 03/30/2025 5:23 PM EDT YES. I can see her in [place] tomorrow (Sat) if she wants. Otherwise she has an appt Saturday with Dr. Ayala. I am on site and happy to come over if needed. [facility]07-29-2025 Telephone encounter Note* Telephone Encounter - Gely Plascencia - 03/30/2025 2:46 PM EDT The patient reports experiencing tearing from the left eye approximately four to five times daily. Is this considered normal? [phone] sx: 03/25/2025 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 [[id number]] - Eye - Left [facility]07-28-2025 NoteHNO ID: [id number] Author: ADRIANA LUND MD Service: ? Author Type: Physician Type: Progress Notes Filed: 04/02/2025 10:40 Note Text:[facility]07-25-2025 Note* Addendum Note - Brittaney Mckeon MD - 03/26/2025 8:50 PM EDTAddended by: BRITTANEY MCKEON on: 03/26/2025 08:50 PM Modules accepted: Orders [facility]07-25-2025 Miscellaneous Notes* Addendum Note - Brittaney [...] The eye clinic can be reached at [phone] and you can ask to speak to the conveyor tender paper sales manager. Brittaney Mckeon MD Ophthalmology Resident, [facility] documented in this encounterAultman [facility]07-25-2025 Telephone encounter Note * Telephone Encounter [...] The eye clinic can be reached at [phone] and you can ask to speak to the conveyor tender paper sales manager. Brittaney Mckeon MD Ophthalmology Resident, [facility]07-23-2025 History and physical note* Emily Chaparro, MURTAZA.MOLECULAR SPECTROSCOPIST - 03/24/2025 3:02 PM EDT Images from [...] large neck Non-male patient STOP-Bang Score: 3 [id number] Score: Age: <65 Sex: female CHF history: No Hypertension history: Yes Stroke/TIA/thromboembolism history: No Vascular disease history: Yes Diabetes history: No [id number] Score: 3 ARISCAT Score: Age: 51-80 Preoperative [...] visit for bleb leak OS Sent by [facility] doctor for bleb leak OS X 4 [...] Neurological: +BPPV. No history of TIA's, stroke, HOT PLATE PLYWOOD PRESS OPERATOR tumor, impaired sensorium, hemiplegia, paraplegia or quadraplegia. [...] pain, CHF, congenital heart defect, DVT/PE, recent DE, PTCA, open heart surgery and valve surgery. GI: Negative for: abdominal pain, dysphagia, GERD, hepatitis, irritable bowel syndrome, inflammatory bowel disease, liver disease, nausea, pancreatitis, vomiting and ETOH >2 drinks/day. : No history of dysuria, frequency or incontinence, stones or chronic kidney disease. No difficulty urinating, nocturia > 1 time per night or hematuria. LOCOMOTIVE CRANE OPERATOR: Negative for abnormal vaginal bleeding, abnormal vaginal [...] Dr. Cynthia Ramos M.D. [place] [address] FAMILY HISTORY Problem Relation Age of Onset Heart Father Age 61 Ovarian cancer Maternal Grandmother Heart Maternal Grandfather Cancer Paternal Grandmother Breast Heart Son [place] Cancer Maternal Aunt 55 ovarian cancer Glaucoma [...] 8760 hours). Recent Results (from the past 99090 hours) ECHO Collection Time: 07/09/22 3:24 PM [...] 24, 2025 TIME: 3:02 PM PAGER/CONTACT #: [facility]07-23-2025 History and physical note* Emily Chaparro APRN.CNP - 03/24/2025 3:02 PM EDT Images from the original note were not included. [place] [facility] HISTORY [...] Assessment: c/w statin PAD (peripheral artery disease) ([facility]) Assessment: 20-39% bilateral carotid artery stenosis per [...] large neck Non-male patient STOP-Bang Score: 3 [id number] Score: Age: <65 Sex: female CHF history: No Hypertension history: Yes Stroke/TIA/thromboembolism history: No Vascular disease history: Yes Diabetes history: No [id number] Score: 3 ARISCAT Score: Age: 51-80 Preoperative [...] visit for bleb leak OS Sent by [facility] doctor for bleb leak OS X 4 [...] Neurological: +BPPV. No history of TIA's, stroke, HOT PLATE PLYWOOD PRESS OPERATOR tumor, impaired sensorium, hemiplegia, paraplegia or quadraplegia. [...] pain, CHF, congenital heart defect, DVT/PE, recent DE, PTCA, open heart surgery and valve surgery. GI: Negative for: abdominal pain, dysphagia, GERD, hepatitis, irritable bowel syndrome, inflammatory bowel disease, liver disease, nausea, pancreatitis, vomiting and ETOH >2 drinks/day. : No history of dysuria, frequency or incontinence, stones or chronic kidney disease. No difficulty urinating, nocturia > 1 time per night or hematuria. LOCOMOTIVE CRANE OPERATOR: Negative for abnormal vaginal bleeding, abnormal vaginal [...] adenoma CT MAXILLOFAC/SINUS 06/29/2015 normal EGD W/O [facility] SPEC VARICIES INJ 05/30/2023 Small hiatal [...] Dr. Cynthia Ramos M.D. [place] [address] FAMILY HISTORY Problem Relation Age of Onset Heart Father Age 61 Ovarian cancer Maternal Grandmother Heart Maternal Grandfather Cancer Paternal Grandmother Breast Heart Son [place] Cancer Maternal Aunt 55 ovarian cancer Glaucoma [...] 8760 hours). Recent Results (from the past 10217 hours) ECHO Collection Time: 07/09/22 3:24 PM [...] 3:02 PM PAGER/CONTACT #: documented in this encounterAultman Orrville Hospital07-23-2025 Instructions* Patient Instructions* Emily Chaparro APRN.CNP - 03/24/2025 3:02 PM EDT Images from the original note were not included. [facility] PATIENT PREOPERATIVE INSTRUCTIONS No ref. provider found has scheduled you for your procedure at this surgery center: [facility] [place]: [phone] --[facility] [place], [address] [id number]. Please read below carefully for your personalized [...] office. If you are currently using a ecjh-rrh-qhvs injectable or oral medication for diabetes or [...] Procedures: - YOU MUST HAVE A RESPONSIBLE EXECUTIVE SECRETARY SOCIAL WELFARE TAKE YOU HOME. A PHILOSOPHY LECTURER OR INTERNAL GRINDING MACHINE OPERATOR CANNOT BE MADE A RESPONSIBLE EXECUTIVE SECRETARY SOCIAL WELFARE. - We recommend that a responsible person [...] Advance Directive, please fax a copy to [phone] or email to for it to be [...] day. Emily Chaparro APRN.DEBORAH documented in this encounterAultman [facility]07-23-2025 Telephone encounter Note * Telephone Encounter [...] but called back today as documented below. [facility] Work Phone: 1(322) 168-957307-23-2025 Miscellaneous Notes* Telephone Encounter - Adriana Lund [...] 03/24/2025 9:40 AM EDT Allie Lynn CCF# [id number] Patient calling w/update BCL Contact not working Leaking fluid still, face is wet and sticky Janet Lowery MD filed at 03/23/2025 3:55 PM Status: Signed Urgent visit for bleb leak OS Sent by [facility] doctor for bleb leak OS X 4 [...] 04/06 will revise 04/12 documented in this encounterAultman [facility]07-23-2025 Telephone encounter Note * Telephone Encounter - Jackelin Fields - 03/24/2025 9:40 AM EDT Allie Lynn CCF# [id number] Patient calling w/update BCL Contact not working Leaking fluid still, face is wet and sticky Janet Lowery MD filed at 03/23/2025 3:55 PM Status: Signed Urgent visit for bleb leak OS Sent by [facility] doctor for bleb leak OS X 4 [...] if still leaking 04/06 will revise 04/12 [facility] Work Phone: 1(922) 671-194407-22-2025 NoteDate of Procedure 03/23/2025. Clinical Systems Educator Information Electrocardiograph Repairer: TOO. Notes Bleb leak [id number] NoteDate of Procedure 03/23/2025. Clinical Systems Educator Information Electrocardiograph Repairer: TOO. 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 Notes No choroidals Document baseline disc [id number] NoteDate of Procedure 03/23/2025. Clinical Systems Educator Information Electrocardiograph Repairer: TOO. Quality Right Eye Good. Left Eye Good. NFL Interpretation Right Eye Superior loss, Inferior loss. Left Eye Normal.[id number] NoteTable formatting from the original result was not included. Date of Procedure 03/23/2025. Notes Ophthalmology Exam Pachymetry (03/23/2025, 03/23/25) Right Left Thickness 543, 540 540,530 Edited by: Saranya Buchanan OA [id number] Instructions* Patient Instructions* Shyanne Parmar MD - 03/23/2025 3:07 PM EDT Please take timolol (yellow top) twice a day in the left eye And moxifloxacin (mora top) four times a day in the left eye documented in this encounterAultman Orrville Hospital07-22-2025 [facility]Bl[facility]07-22-20[facility] History of Present illness Narrative* Janet Lowery MD - 03/23/2025 2:24 PM EDT Urgent visit for bleb leak OS Sent by [facility] doctor for bleb leak OS X 4 [...] Janet Lowery MD 03/23/2025 documented in this encounterAultman Orrville [facility]07-22-2025 Telephone encounter Note * Telephone Encounter - Barbie Alicea - 03/23/2025 10:46 AM EDT Appointment scheduled with at 12:30. Patient advised to arrive on empty stomach. States she did have a granola bar and took medications around 9 am. *documentation is in secure chat* Barbie Alicea March 23, 2025 10:48 AM [facility]07-22-2025 Miscellaneous Notes* Telephone Encounter - Barbie [...] 07. Maybe its better to go to [facility] to be cared for Left message for patient to call the office to obtain the above information. Barbie Alicea reaching out to [facility] scheduling to find the availability of a risk control specialist to take over patient care with Dr. Ramos going out of the country. Janet Rivero RN March 23, 2025 10:00 AM * Telephone Encounter - Janet Rivero RN - 03/23/2025 9:50 AM EDT Spoke with patient. Sent the following message to Dr. Ramos in a Urgent Secure Chat regarding conversation: Received chart notes from [facility] Ankur Curtis MD. Patient has loose Exposed [...] 23, 2025 9:54 AM documented in this encounterAultman Orrville [facility]07-22-2025 Telephone encounter Note * Telephone Encounter - Janet Rivero RN - 03/23/2025 9:55 AM EDT Response from Dr. Ramos: yes I can see her sooner but this needs urgent revision and I'm leaving for [place] morning[place] 07. Maybe its better to go to [facility] to be cared for Left message for patient to call the office to obtain the above information. Barbie Alicea reaching out to [facility] scheduling to find the availability of a risk control specialist to take over patient care with Dr. Ramos going out of the country. Janet Rivero RN March 23, 2025 10:00 AM [facility]07-22-2025 Telephone encounter Note* Telephone Encounter - Janet Rivero RN - 03/23/2025 9:50 AM EDT Spoke with patient. Sent the following message to Dr. Ramos in a Urgent Secure Chat regarding conversation: Received chart notes from [facility] Ankur Curtis MD. 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 acute March 10, 2025 2 :26pm Greater trochanteric bursiti s of left hip acute March 10, 2025 2 :26pm Lumbar spondylosis acute March 102024 2:26pm [facility] [employer] Work Phone: 1(837) 406-408407-09-2025 Evaluation note* Diagnosis Onset Date Resolution Status [...] 2:23pm Spondylolisthesis acute April 16, 2025 2:23pm [facility] Work Phone: 1(421) 625-761307-09-2025 Evaluation note* Diagnosis Onset Date Resolution Status [...] 3:14pm Spondylolisthesis acute June 03, 2025 3:14pm [facility] Work Phone: 1(831) 848-101507-09-2025 Evaluation note* Diagnosis Onset Date Resolution Status [...] f left hip acute June 04 10:59am [facility] [employer] Work Phone: 1(254) [phone] Telephone encounter Note* Telephone Encounter - YESI VARGHESE - 03/01/2025 7:55 AM EDT Patient scheduled for nurse visit 03/02/25 to receive TDAP vaccine. Please place order at this time. Yesi Varghese LPN [facility]06-30-2025 Miscellaneous Notes* Telephone Encounter - YESI VARGHESE - 03/01/2025 7:55 AM EDT Patient scheduled for nurse visit 03/02/25 to receive TDAP vaccine. Please place order at this time. Yesi Varghese LPN documented in this encounterAultman Orrville Hospital06-26-2025 Telephone encounter Note * Telephone Encounter - Audra Peñaloza RN - 02/25/2025 1:26 PM EDT Pt called in and was asking if she was up to date on her TDAP vaccine, because she is going to visit her new grand baby. Please place the order for the vaccine as she will be coming in to get this with [place] nurse on 03/03/25. Audra Peñaloza RN [facility]06-26-2025 Miscellaneous Notes* Telephone Encounter - Audra Peñaloza RN - 02/25/2025 1:26 PM EDT Pt called in and was asking if she was up to date on her TDAP vaccine, because she is going to visit her new grand baby. Please place the order for the vaccine as she will be coming in to get this with [place] nurse on 03/03/25. Audra Peñaloza, RN documented in this encounterAultman Orrville [facility]05-14-2025 Telephone encounter Note * Telephone Encounter - Janet Meza LPN - 01/13/2025 10:27 AM EDT Called and updated patient, patient will call back with alternate supplier Janet Meza LPN January 13, 2025 10:28 AM [facility]05-14-2025 Miscellaneous Notes* Telephone Encounter - Janet Meza LPN - 01/13/2025 10:27 AM EDT Called and updated patient, patient will call back with alternate supplier Janet Meza LPN January 13, 2025 10:28 AM * Telephone Encounter - Allie Mcknight LPN - 01/13/2025 9:12 AM EDT Roman from [facility] calling said they do not carry that [...] States she spoke with her insurance company [employer] and they state for PCP to write a new order and send to [employer]. Order pended for provider review. Please fax order to [facility]. Please call patient with an update. Angelica Arreola RN documented in this encounterAultman Or[facility]05-14-2025 Telephone encounter Note * Telephone Encounter - Allie Mcknight LPN - 01/13/2025 9:12 AM EDT Roman from [facility] said they do not carry that item requested. [facility]05-14-2025 Telephone encounter Note* Telephone Encounter - Janet Meza LPN - 01/13/2025 8:10 AM EDT Faxed order to [facility] per patient request Janet Meza LPN January 13, 2025 8:10 AM [facility]05-13-2025 Telephone encounter Note* Telephone Encounter - Angelica Arreola RN - 01/12/2025 10:38 AM EDT Patient reports she has lost her "blindness cane". States she spoke with her insurance company [employer] and they state for PCP to write a new order and send to [employer]. Order pended for provider review. Please fax order to [facility]. Please call patient with an update. Angelica Arreola RN [facility]05-13-2025 Telephone encounter Note* Telephone Encounter - Germaine Berkowitz LPN - 01/12/2025 8:32 AM EDT CPAP supply order faxed. Germaine Berkowitz LPN [facility]05-13-2025 Miscellaneous Notes* Telephone Encounter - Germaine Berkowitz LPN - 01/12/2025 8:32 AM EDT CPAP supply order faxed. Germaine Berkowitz LPN documented in this encounterAultman Orrville Hospital04-30-2025 Telephone encounter Note * Telephone Encounter [...] she is legally blind and doesn't drive. [facility]04-30-2025 Miscellaneous Notes* Telephone Encounter - Clint [...] results and sent her CPAP orders to [facility] in [place]. They should be reaching out to her [...] 30, 2024 8:39 AM documented in this encounterAultman Orrville Hospital04-30-2025 Telephone encounter Note * Telephone Encounter - Letty Morales LPN - 12/30/2024 11:26 AM EDT TC to pt with no answer, left VM to return call. Please confirm if she is referring to her sleep study. I called patient on December 17 with the results and sent her CPAP orders to [facility] in [place]. They should be reaching out to her to set up machine. Letty Morales LPN [facility]04-30-2025 Telephone encounter Note* Telephone Encounter - Eve Tracey - 12/30/2024 8:38 AM EDT Patient calling in to let Michelle Chin know her results from her CPAP are now in her chart. She is asking if she had the chance to review them. Please review and advise patient. 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 She [...] any unintended typographical errors. 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 Patient/authorized car sales representative agreed to proceed Ifeoma Davis MD documented in this encounterAultman [facility]04-23-2025 Telephone encounter Note * Telephone Encounter [...] is changing pharmacies from mail order to [facility] so needs a new rx sent Sharifa Amaral RN December 23, 2024 12:45 PM [facility]04-23-2025 Miscellaneous Notes* Telephone Encounter - Sharifa [...] is changing pharmacies from mail order to [facility] so needs a new rx sent Sharifa Amaral RN December 23, 2024 12:45 PM documented in this encounterAultman Orrville Hospital04-17-2025 Telephone encounter Note * Telephone Encounter - Letty Morales LPN - 12/17/2024 2:56 PM EDT TC to pt who voiced understanding. Agreeable to [facility] in [place]. 31-90 day follow up made. Letty Morales LPN [facility]04-17-2025 Miscellaneous Notes* Telephone Encounter - Letty Morales LPN - 12/17/2024 2:56 PM EDT TC to pt who voiced understanding. Agreeable to [facility] in [place]. 31-90 day follow up made. Letty Morales LPN * Telephone Encounter - Michelle Chin APRN.CNP - 12/17/2024 1:24 PM EDT Please CALL pt with result of sleep study--it confirms that she has sleep apnea so I will prescribeautoCPAP for her. Will plan to send to [facility] unless she has another DME she wants to use. Michelle Chin APRN.CNP documented in this encounterAultman [facility]rville [facility]04-17-2025 Telephone encounter Note * Telephone Encounter - Michelle Chin APRN.CNP - 12/17/2024 1:24 PM EDT Please CALL pt with result of sleep study--it confirms that she has sleep apnea so I will prescribeautoCPAP for her. Will plan to send to [facility] unless she has another DME she wants to use. Michelle Chin APRN.CNP [facility]04-09-2025 Evaluation note* Diagnosis Onset Date Resolution Status Admit Date Greater trochanteric bursiti s of left hip acute December 09, 2024 1:22pm Rotator cuff tendonitis acute A pril 2024 1:22pm [facility] Work Phone: [phone]) [phone] Telephone encounter Note* Telephone Encounter - Janet Meza LPN - 12/08/2024 10:05 AM EDT Called and left message for patient, on self identified voicemail Janet Meza LPN December 08, 2024 10:05 AM [facility]04-08-2025 Miscellaneous Notes* Telephone Encounter - Janet Meza LPN - 12/08/2024 10:05 AM EDT Called and left message for patient, on self identified voicemail Janet Meza LPN December 08, 2024 10:05 AM * Telephone Encounter - Ifeoma Davis MD - 12/07/2024 5:36 PM EDT Rx for her. Regards, Ifeoma Davis MD * Telephone Encounter - Daar Valdez RN - 12/07/2024 11:07 AM EDT [...] advise, Dara Valdez RN documented in this encounterAultman [facility]04-07-2025 Telephone encounter Note * Telephone Encounter - Ifeoma Davis MD - 12/07/2024 5:36 PM EDT Rx for her. Regards, Ifeoma Davis MD [facility]04-07-2025 Telephone encounter Note* Telephone Encounter - Jackie Freitas MA - 12/07/2024 11:35 AM EDT This was ordered by sleep provider: Michelle Chin. Results must come from ordering provider. Once sleep provider receives results the sleep office will contact patient. Jackie Freitas MA [facility]04-07-2025 Miscellaneous Notes* Telephone Encounter - Jackie [...] results. PSS reviewed provider's response in unread OMGhart Message. Patient asking to be contacted as soon as results are in. She states she is struggling to sleep. * Telephone Encounter - Dara Valdez RN - 12/01/2024 8:58 AM EDT Patient calls and states that she was at [place] for Sleep study on 11/17/2024. Patient asking about results for sleep study. Please review and advise, Dara Valdez RN documented in this encounterAultman Orr[facility]04-07-2025 Telephone encounter Note * Telephone Encounter [...] Please review and advise, Dara Valdez RN [facility]04-07-2025 Telephone encounter Note* Telephone Encounter - Rupa George - 12/07/2024 10:04 AM EDT Patient calling again for status update on sleep study results. PSS reviewed provider's response in unread SnapMyAdt Message. Patient asking to be contacted as soon as results are in. She states she is struggling to sleep. [facility]04-01-2025 Telephone encounter Note* Telephone Encounter - Dara Valdez RN - 12/01/2024 8:58 AM EDT Patient calls and states that she was at [place] for Sleep study on 11/17/2024. Patient asking about results for sleep study. Please review and advise, Dara Valdez RN [facility]03-25-2025 Radiology Diagnostic study note [facility] Imaging Services [address] [place] [address] Hip Min 2 Views (Portable) MR#: [id number] Acct: [id number] Name: ALLIE LYNN Rep #: [id number] : 1970 F 54 From: Benton Weathers DO PCP: Dr. Ifeoma Davis MD Status: REG C LI Study:Hip Min 2 Views (Portable) Date of Exam : 11/24/24 Exam# [id number] Ordering Dr: Allie Prakash PROCEDURE: HIP MIN [...] of the left groin region. Reading Location: [id number] CC: Allie Prakash; Dr. Ifeoma Davis MD ~ Receiving Supervisor: Signed [facility]03-21-2025 Telephone encounter Note* Telephone Encounter - Audra Peñaloza RN - 11/20/2024 12:46 PM EDT Pt called and is notified of providers results and instructions. Pt voices understanding. Audra Peñaloza RN [facility]03-21-2025 Miscellaneous Notes* Telephone Encounter - Audra [...] done yesterday, she can see results on [employer]. Glucose was abnormal at 73, she said [...] 71 Legend: (L) Low documented in this encounterAultman [facility]03-21-2025 Telephone encounter Note * Telephone Encounter [...] decrease nausea. Thank you David Anna APRN.DEBORAH [facility]03-21-2025 Telephone encounter Note* Telephone Encounter - [...] eGFR >=60 mL/min/1.73m 71 Legend: (L) Low [facility]03-20-2025 NoteBl[facility]03-20-2025 History of Present illness Narrative* David [...] Dr. Cynthia Ramos M.D. S BALLOON,UTERINE ABLATION [id number] ALLERGIES Ultram [Tramadol Hcl], Darvocet A500 [Propoxyphene [...] Maternal Aunt 55 ovarian cancer Heart Son [place] Ovarian cancer Maternal Grandmother Glaucoma No Family [...] - Instructed patient to contact office or [id number] after-hours promptly should condition worsen or any new symptoms appear. - Counseling Center [facility] and after hours crisis line 4. [...] plan. David Anna APRN.DEBORAH documented in this encounterAultman [facility]03-06-2025 Telephone encounter Note * Telephone Encounter - Janet Meza LPN - 11/05/2024 1:23 PM EST Patient updated via active [employer] Janet Meza LPN November 05, 2024 1:23 PM [facility]03-06-2025 Miscellaneous Notes* Telephone Encounter - Janet Meza LPN - 11/05/2024 1:23 PM EST Patient updated via [employer] Janet Meza LPN November 05, 2024 1:23 PM * Telephone Encounter - Janet Meza LPN - 11/05/2024 1:22 PM EST ----- Message from Ifeoma aDvis MD sent at 11/05/2024 11:42 AM EST ----- Allie, Your labs are all normal including iron, vit b12, vit d, thyroid. Ferritin although it is on the lower side, it still is low, would advice that she take otc iron pills to see if that would help her fatigue. Regards, Ifeoma Davis MD documented in this encounterAultman [facility]03-06-2025 Telephone encounter Note * Telephone Encounter [...] help her fatigue. Regards, Ifeoma Davis MD [facility]03-04-2025 Instructions* Patient Instructions* Ifeoma Davis MD - 11/03/2024 2:51 PM EST Try taking the percocet without trazodone to see if that helps sleep with out feeling like a hang over. documented in this encounterAultman [facility]rville [facility]03-04-2025 NoteBl[facility]03-04-2025 History of Present illness Narrative* [...] her everyday life. Dr. 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 States she has not had a bleed in her eye at a long time, but at the same time she states she wouldn't see it at this point. Slowly progressive loss of peripheral vision. Patient also reports that she has issueswith calcified joints/arthritis. She has moved back to [place], so she can use the [employer] for going places, [employer]. She is engaged in a lot of activities, and is giving back to the community as much as she can in every way she can. She has a son in [place], and a brother near by. Her eyes [...] extremely active in the community. Takes the [employer] bus to [employer] every Saturday, [...] available full-time. Needs include home health aid, correction if applicable - says her boyfriend could [...] Had worked with an OT previously through [facility] in [place] previously who assisted with various techniques and [...] Maternal Aunt 55 ovarian cancer Heart Son [place] Ovarian cancer Maternal Grandmother Glaucoma No Family [...] DIFFERENTIAL Ifeoma Davis MD documented in this encounterAultman [facility]03-03-2025 Telephone encounter Note * Telephone Encounter - Laura Lepe MA - 11/02/2024 7:50 AM EST Patient given results and verbalized understanding of instructions given. Laura Lepe MA [facility]03-03-2025 Miscellaneous Notes* Telephone Encounter - Laura [...] please follow-up with PCP. documented in this encounterAultman Orrville Hospital03-03-2025 Telephone encounter Note * Telephone Encounter - Britta Gunn PA - 11/02/2024 7:10 AM EST Please let patient know urine culture did not reveal clear evidence of UTI. If she is persistent with symptoms, please follow-up with PCP. [facility]03-01-2025 Instructions* Patient Instructions* Chantal Pino APRN.CNP [...] pain go to ER. documented in this encounterAultman Orrville Hospital03-01-2025 NoteBl[facility] Valley [facility]03-01-2025 History of Present illness Narrative* Chantal Pino APRN.CNP - 10/31/2024 1:12 PM EST Subjective The history is provided by the patient. No materials management clerk was used. HPI Allie Lynn is a [...] have confirmed and edited as necessary, the [facility] Review of Systems Constitutional: Negative for chills [...] evaluation. franko Pino APRN.CNP documented in this encounterAultman Orrville Hospital02-19-2025 History of Present illness Narrative* Kimberley [...] PATIENT PRESENTS WITH AN IMPLANTABLE OR ATTACHED CATERPILLAR TRACTOR OPERATOR: No RADIOLOGY DEPARTMENT: Mammography PERIPHERAL IV DATA: Not applicable SIGNED BY: Rubin Carlton October 21, 2024 2:00 PM documented in this encounterAultman Orrville Hospital02-19-2025 NoteBl[facility]02-14-2025 Telephone encounter Note* Telephone Encounter - Letty Morales LPN - 10/16/2024 2:27 PM EST TC to Dr. Fox office, [facility] did not receive fax. Sent again. Staff will make sure to speak withDr. Fox. Letty Morales LPN [facility]02-14-2025 Miscellaneous Notes* Telephone Encounter - Letty Morales LPN - 10/16/2024 2:27 PM EST TC to Dr. Fox office, [facility] did not receive fax. Sent again. [...] we'll let her know. We could use [facility] lab. She can still take flexeril. Michelle Chin APRN.MOLECULAR SPECTROSCOPIST * Telephone Encounter - Letty Morales LPN - 09/25/2024 4:26 PM EST TC to pt who had questions about flexeril, she has been taking it every night to see if it helps with the leg spasms. Wonders if she can still take this or if she will need to stop them. Is okay withincreasing the gabapentin, uses [facility] in [place]. Aware we need to talk to Dr. Betancourt. Has upcoming appts with PCP and pain management. Is okay to do a sleep study using [facility] but is unable to travel out of town very far. Letty Morales LPN * Telephone Encounter - Michelle Chin APRN.DEBORAH - 09/25/2024 3:52 PM EST Please CALL pt and tell her I reviewed her case with Dr Jiménez. --We looked at her [facility] sleep study report--Dr Jiménez believes she [...] do thatwould she consider going to a [facility] sleep lab? 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 I also have reviewed and agree with the assessment and plan as stated above and agree with all of its relevant components. Cynthia Ramos MD October 13, 2024 11:05 AM documented in this encounterAultman Orrville [facility]02-11-2025 NoteDate of Procedure 10/13/2024. Clinical Systems Educator Information Electrocardiograph Repairer: lino. Start time: 9:55 AM. Stop time: 9:55 AM. Notes -- OCT 10/13/2024 OD atrophy, no fluid; OS atrophy, nasal fluid stable, not in [id number] Telephone encounter Note* Telephone Encounter - Jackie Freitas MA - 10/12/2024 3:27 PM EST Patient at PCP appointment. Will have patient stop at discharge to schedule PSG. Jackie Freitas MA [facility]02-10-2025 Miscellaneous Notes* Telephone Encounter - Jackie Freitas MA - 10/12/2024 3:27 PM EST Patient at PCP appointment. Will have patient stop at discharge to schedule PSG. Jackie Freitas MA * Telephone Encounter - Michelle Chin APRN.CNP - 10/08/2024 12:55 PM EST PSG ordered. Please assist pt in scheduling it at [facility]. Michelle Chin APRN.DEBORAH * Telephone Encounter [...] advise, Dara Valdez RN documented in this encounterAultman Orrville Hospital02-10-2025 NoteBlanch[facility] Valley [facility]02-10-[facility] History of Present illness Narrative* Ifeoma [...] her everyday life. Dr. 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 States she has not had a bleed in her eye at a long time, but at the same time she states she wouldn't see it at this point. Slowly progressive loss of peripheral vision. Patient also reports that she has issueswith calcified joints/arthritis. She has moved back to [place], so she can use the [employer] for going places, [employer]. She is engaged in a lot of activities, and is giving back to the community as much as she can in every way she can. She has a son in [place], and a brother near by. Her eyes [...] extremely active in the community. Takes the [employer] bus to [employer] every Saturday, [...] available full-time. Needs include home health aid, correction if applicable - says her boyfriend could [...] Had worked with an OT previously through [facility] in [place] previously who assisted with various techniques and [...] Maternal Aunt 55 ovarian cancer Heart Son [place] Ovarian cancer Maternal Grandmother Glaucoma No Family [...] wellbutrin Ifeoma Davis MD documented in this encounterAultman [facility]02-06-2025 Telephone encounter Note * Telephone Encounter - Michelle Chin APRN.CNP - 10/08/2024 12:55 PM EST PSG ordered. Please assist pt in scheduling it at [facility]. Michelle Chin APRN.CNP [facility]02-05-2025 NoteBlanch[facility] Valley [facility]02-05-2025 History of Present illness Narrative* Calli [...] Dr. Cynthia Ramos M.D. S BALLOON,UTERINE ABLATION [id number] ALLERGIES Ultram [Tramadol Hcl], Darvocet A500 [Propoxyphene [...] Maternal Aunt 55 ovarian cancer Heart Son [place] Ovarian cancer Maternal Grandmother Glaucoma No Family [...] options, medications, and coordinating care. Calli Duvall APRN.MOLECULAR SPECTROSCOPIST documented in this encounterAultman Orrville Hospital02-05-2025 Telephone encounter Note * Telephone Encounter [...] scheduled with other provider. Starla Mckeon LPN [facility]02-05-2025 Miscellaneous Notes* Telephone Encounter - Starla [...] provider. Starla Mckeon LPN documented in this encounterAultman Orrville Hospital02-05-2025 Telephone encounter Note * Telephone Encounter [...] Please review and advise, Dara Valdez RN [facility]01-28-2025 [facility] History of Present illness Narrative* Ifeoma [...] her everyday life. Dr. 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 [...] use the [employer] for going places, [employer]. She is engaged in a lot of activities, and is giving back to the community as much as she can in every way she can. She has a son in [place], and a brother near by. Her eyes [...] extremely active in the community. Takes the [employer] bus to [employer] every Saturday, as well as to her [employer] studies throughout the week. States these activities [...] available full-time. Needs include home health aid, correction if applicable - says her boyfriend could [...] Had worked with an OT previously through [facility] in [place] previously who assisted with various techniques and [...] Dr. Cynthia Ramos M.D. S BALLOON,UTERINE ABLATION [address] ALLERGIES Ultram [Tramadol Hcl], Darvocet A500 [Propoxyphene [...] Maternal Aunt 55 ovarian cancer Heart Son DE Ovarian cancer Maternal Grandmother Glaucoma No Family [...] TABLET Ifeoma Davis MD documented in this encounterAultman Orrville Hospital01-27-2025 Telephone encounter Note * Telephone Encounter - Letty Morales LPN - 09/28/2024 8:51 AM EST Office note faxed per request. Letty Morales LPN [facility]01-24-2025 Telephone encounter Note* Telephone Encounter - Michelle Chin APRN.MOLECULAR SPECTROSCOPIST - 09/25/2024 4:36 PM EST Please print my note and I'll write a msg to Dr Betancourt, we can fax him, then we'll let her know. We could use [facility] lab. She can still take flexeril. Michelle Chin APRN.DEBORAH [facility] Work Phone: [phone]) 817-884801-24-2025 Telephone encounter Note* Telephone Encounter - Letty Morales LPN - 09/25/2024 4:26 PM EST TC to pt who had questions about flexeril, she has been taking it every night to see if it helps with the leg spasms. Wonders if she can still take this or if she will need to stop them. Is okay withincreasing the gabapentin, uses [facility] in [place]. Aware we need to talk to Dr. Betancourt. Has upcoming appts with PCP and pain management. Is okay to do a sleep study using [facility] but is unable to travel out of town very far. Letty Morales LPN [facility]01-24-2025 Telephone encounter Note* Telephone Encounter - Michelle Chin APRN.CNP - 09/25/2024 3:52 PM EST Please CALL pt and tell her I reviewed her case with Dr Jiménez. --We looked at her [facility] sleep study report--Dr Jiménez believes she [...] do thatwould she consider going to a [facility] sleep lab? Michelle Chin APRN.CNP [facility]01-23-2025 History of Present illness Narrative* Michelle Chin APRN.DEBORAH - 09/24/2024 3:00 PM EST Images from the original note were not included. Addendum: I reviewed her case with Dr Jiménez. We looked at her [facility] sleep study report including hypnogram--Dr Jiménez [...] [facility] sleep lab but she would requirea lifter driver due to her blindness. Michelle Chin APRN.CNP [facility] New Patient Evaluation [...] at HS. Had a PSG at [facility] -- didn't meet criteria for DAYSI [...] night A Polysomnogram performed on 07/22/24 at [facility] revealed an AHI of 8.1 (3%) [...] Dr. Cynthia Ramos M.D. S BALLOON,UTERINE ABLATION [address] ACTIVE PROBLEM LIST Patellar Tendinitis Pxe (Pseudoxanthoma [...] Maternal Aunt 55 ovarian cancer Heart Son DE Ovarian cancer Maternal Grandmother Glaucoma No Family [...] leg movements in her sleep. PSG at [facility] didn't show significant arousals from PLMs [...] which included preparing to see the patient, [id number] patient care, completing clinical documentation, obtaining and/or reviewing separately obtained history, performing a medically appropriate examination, counseling and educating the pa tient/family/caregiver, and communicating with other HCPs (not separately reported). documented in this encounterAultman Orrville Hospital01-23-2025 [facility]Bl[facility]01-14-2025 NoteBl[facility]01-14-2025 History of Present illness Narrative* Destiney [...] L3 SAB0 IAB0 Ectopic0 Multiple0 Live Births0 Improvement Intern History LMP: Ablation Age at Menarche: Age at First : Age at Menopause: Improvement Intern History Comments: Sexual Activity: Not Currently; Male [...] Dr. Cynthia Ramos M.D. S BALLOON,UTERINE ABLATION [address]856 FAMILY HISTORY Problem Relation Age of Onset Heart Father Age 61 Heart Maternal Grandfather Cancer Paternal Grandmother Breast Cancer Maternal Aunt 55 ovarian cancer Heart Son DE Ovarian cancer Maternal Grandmother Glaucoma No Family [...] Level: 3 - Low documented in this encounterAultman Orrville Hospital01-07-2025 Telephone encounter Note * Telephone Encounter [...] calling: self Call patient at: on cell [phone] (home) [phone] (cell) Was an appointment scheduled: No Closing statement: Results or non-symptom based questions: Thank you for calling [facility], your call will be returned within the next business day. Nikkie Awad [facility]01-07-2025 Miscellaneous Notes* Telephone Encounter - Nikkie [...] calling: self Call patient at: on cell [phone] (home) [phone] (cell) Was an appointment scheduled: No Closing statement: Results or non-symptom based questions: Thank you for calling [facility], your call will be returned within the next business day. Nikkie Awad documented in this encounterAultman Orrville Hospital12-12-2024 Telephone encounter Note * Telephone Encounter - David Anna APRN.CNP - 08/13/2024 7:09 AM EST She has an upcoming appointment with Dr. Davis next week. Have her take a few blood pressures different days after sitting to rest for a good 5 minutes and can bring readings to appointment to reviewwith her. Thank you David Anna APRN.CNP [facility]12-12-2024 Miscellaneous Notes* Telephone Encounter - David Anna APRN.CNP - 08/13/2024 7:09 AM EST She has an upcoming appointment with Dr. Davis next week. Have her take a few blood pressures different days after sitting to rest for a good 5 minutes and can bring readings to appointment to reviewwith her. Thank you David Anna APRN.MOLECULAR SPECTROSCOPIST * Telephone Encounter - Virginia Lorenz MA [...] and by whom? Thank you David Anna APRN.MOLECULAR SPECTROSCOPIST * Telephone Encounter - Emily Prieto LPN - 08/12/2024 11:17 AM EST Patient calling, states she was instructed to call in with 3 separate BP readings today. 9:17am BP 155/82 HR 89 10:25am BP 146/88 HR 91 11:12am BP 158/88 HR 102 documented in this encounterAultman Orrville Hospital12-11-2024 Telephone encounter Note * Telephone Encounter - Virginia Lorenz MA - 08/12/2024 2:30 PM EST Spoke with patient regarding below. After reviewing, it looks like patient was called on 08/10 by Patient Outreach and patient outreach MA instructed patient to call in readings. See 08/10/24 patient outreach. Virginia Lorenz MA [facility]12-11-2024 Telephone encounter Note* Telephone Encounter - Tori Morales MA - 08/12/2024 2:09 PM EST Left message for return call. [facility]12-11-2024 Telephone encounter Note* Telephone Encounter - David Anna APRN.CNP - 08/12/2024 1:30 PM EST That is higher then we would like to see. I do not see anything in the chart instructing her to do so. What is going on that she was asked to do this and by whom? Thank you David Anna APRN.DEBORAH [facility]12-11-2024 Telephone encounter Note* Telephone Encounter - Emily Prieto LPN - 08/12/2024 11:17 AM EST Patient calling, states she was instructed to call in with 3 separate BP readings today. 9:17am BP 155/82 HR 89 10:25am BP 146/88 HR 91 11:12am BP 158/88 HR 102 [facility]12-09-2024 NoteBl[facility]12-09-2024 History of Present illness Narrative* Akanksha Ross MA - 08/10/2024 11:21 AM EST POPULATION HEALTH NAVIGATION OUTREACH Action/FYI Patient is on [facility] CURRENT ROSTER Workbench list for below [...] 10, 2024 11:21 AM documented in this encounterAultman Orrville Hospital12-04-2024 Telephone encounter Note * Telephone Encounter - Virginia Lorenz MA - 08/05/2024 11:08 AM EST Spoke with sleep/neuro nurse here in [facility]. [facility] not at this location anymore. However, [employer] and [employer] can come to patients home and set up machine and instruct patient. Patient notified of the above and will contact insurance to inquire if they are in network. Pt willcall back and let us know where to send the order. Virginia Lorenz MA [facility]12-04-2024 Miscellaneous Notes* Telephone Encounter - Virginia [...] her she would need to call her [employer] company and find out the DME they use and call us back. I said it looked like Dr Davis knew about the [facility] clinic to help her to use [...] a CPAP machine and work with the [facility] clinic to help her to use it. For periodic limb movement disorders we could see if the treatment of sleep apnea would help with that symptom and if it does not we can revisit it in the future. Regards, Ifeoma Davis MD * Telephone Encounter - Virginia Lorenz MA - 07/27/2024 1:05 PM EST Printed from [employer] and placed on PCP desk. Virginia Lorenz [...] she had a sleep study done at [facility] and would like the results. Pt reports she cannot access the results. Sarahi Dawkins LPN documented in this encounterAultman Orrville Hospital12-04-2024 Telephone encounter Note * Telephone Encounter - Audra Peñaloza RN - 08/05/2024 10:32 AM EST Pt called in and reports she wasn't able to get in to sleep medicine until 10/07/24. Pt is wanting toget CPAP machine before then. I told her she would need to call her [employer] company and find out the DME they use and call us back. I said it looked like Dr Davis knew about the [facility] clinic to help her to use it as she is legally blind, so she would need to set that up. Pt states she is always so tired, and she doesn't want to wait until October to get it. [facility]11-27-2024 Telephone encounter Note* Telephone Encounter - Sharifa Landa - 07/29/2024 11:34 AM EST 1st attempt LVM to schedule with sleep medicine [facility]11-27-2024 Telephone encounter Note* Telephone Encounter - Virginia Lorenz MA - 07/29/2024 11:09 AM EST Allie notified and verbalized understanding. PSS, please contact patient to schedule with Sleep Medicine. Virginia Lorenz MA [facility]11-26-2024 Telephone encounter Note* Telephone Encounter - Ifeoma Davis MD - 07/28/2024 4:41 PM EST I understand her hesitancy. Because of her limitations I would like her to see sleep medicine as they might consider other methodologies like the inspire or dental appliances. Regards, Ifeoma Davis MD [facility]11-26-2024 Telephone encounter Note* Telephone Encounter - Virginia Lorenz MA - 07/28/2024 9:37 AM EST Patient notified and verbalized understanding. Patient asking if PCP feels that she would be able to do this herself with her vision. Putting the mask on, etc. Virginia Lorenz MA [facility]11-25-2024 Telephone encounter Note* Telephone Encounter - Ifeoma Davis MD - 07/27/2024 6:32 PM EST Please let patient know that she mild sleep apnea and she also likely has periodic limb movement disorder. The ideal treatment would be a CPAP machine. If she is willing to try it we will send her a CPAP machine and work with the [facility] clinic to help her to use it. For periodic limb movement disorders we could see if the treatment of sleep apnea would help with that symptom and if it does not we can revisit it in the future. Regards, Ifeoma Davis MD [facility]11-25-2024 Telephone encounter Note* Telephone Encounter - Virginia Lorenz MA - 07/27/2024 1:05 PM EST Printed from [employer] and placed on PCP desk. Virginia Lorenz MA [facility]11-25-2024 Telephone encounter Note* Telephone Encounter - David Anna APRN.CNP - 07/27/2024 12:25 PM EST We don't have the results either. Please get results then place on PCP desk to review. Thank you David Anna APRN.CNP [facility]11-25-2024 Telephone encounter Note* Telephone Encounter - Sarahi Dawkins LPN - 07/27/2024 10:40 AM EST Pt calls to report she had a sleep study done at [facility] and would like the results. Pt reports she cannot access the results. Sarahi Dawkins LPN [facility]11-08-2024 Telephone encounter Note* Telephone Encounter - Angelica Arreola RN - 07/10/2024 9:15 AM EST [facility] Central Scheduling calling and states they have received a non-signed sleep study order for mutual patient. Requesting a signed order. Signed order faxed to [phone] as requested. Angelica Arreola RN [facility]11-08-2024 Miscellaneous Notes* Telephone Encounter - Angelica Arreola RN - 07/10/2024 9:15 AM EST [facility] Central Scheduling calling and states they have received a non-signed sleep study order for mutual patient. Requesting a signed order. Signed order faxed to [phone] as requested. Angelica Arreola RN documented in this encounterAultman Orrville [facility]11-07-2024 Telephone encounter Note * Telephone Encounter - Janet Meza LPN - 07/09/2024 2:11 PM EST Called and spoke to patient would prefer [facility] d/t legally blind. Faxed order and facesheet to [facility] sleep study Janet Meza LPN July 09, 2024 2:18 PM [facility]11-07-2024 Miscellaneous Notes* Telephone Encounter - Janet Meza LPN - 07/09/2024 2:11 PM EST Called and spoke to patient would prefer [facility] d/t legally blind. Faxed order and facesheet to [facility] sleep study Janet JOLIE Meza July 09, 2024 2:18 PM * Telephone Encounter - Ifeoma Davis MD - 07/09/2024 1:27 PM EST Staff, Please co ordinate with her to get her sleep study done in the sleep lab. [place] may be easier forher. Regards, Ifeoma Davis [...] calling: self Call patient at: at home [phone] (home) [phone] (cell) Was an appointment scheduled: No Closing statement: Results or non-symptom based questions: Thank you for calling [facility], your call will be returned within the next business day. Myra Mathur documented in this encounterAultman Orrville Hospital11-07-2024 Telephone encounter Note * Telephone Encounter - Ifeoma Davis MD - 07/09/2024 1:27 PM EST Staff, Please co ordinate with her to get her sleep study done in the sleep lab. [place] may be easier forher. Regards, Ifeoma Davis MD [facility]11-07-2024 Telephone encounter Note* Telephone Encounter - Judith Quach LPN - 07/09/2024 7:30 AM EST Patient given results and verbalized understanding of instructions given. Judith Quach LPN [facility]11-07-2024 Miscellaneous Notes* Telephone Encounter - Judith Quach LPN - 07/09/2024 7:30 AM EST Patient given results and verbalized understanding of instructions given. Judith Quach LPN * Telephone Encounter - Adriana Vidal APRN.DEBORAH - 07/09/2024 7:16 AM EST Please notify that covid/flu/rsv testing negative. Continue with plan of care as discussed during visit. documented in this encounterAultman Orrville Hospital11-07-2024 Telephone encounter Note * Telephone Encounter - Adriana Vidal APRN.DEBORAH - 07/09/2024 7:16 AM EST Please notify that covid/flu/rsv testing negative. Continue with plan of care as discussed during visit. [facility] Work Phone: 1(545) 286-756711-06-2024 History of Present illness Narrative* Alise Dejesus [...] Dr. Cynthia Ramos M.D. S BALLOON,UTERINE ABLATION [address] ALLERGIES Ultram [Tramadol Hcl], Darvocet A500 [Propoxyphene [...] Maternal Aunt 55 ovarian cancer Heart Son DE Ovarian cancer Maternal Grandmother Glaucoma No Family [...] Patient agreeable to treatment plan. Alise Dejesus APRN.MOLECULAR SPECTROSCOPIST documented in this encounterAultman Orrville Hospital11-06-2024 Telephone encounter Note * Telephone Encounter - Angelica Arreola RN - 07/08/2024 11:07 AM EST Patient returned call. Patient states yes, she is willing to do an in house test. States she is "willing to do whatever Dr. Davis thinks is best". Please call patient with response or any new test orders. Aneglica Arreola RN [facility]11-06-2024 Telephone encounter Note* Telephone Encounter - Clint Brennan RN - 07/08/2024 9:52 AM EST Phoned pt. No answer. No voicemail. [facility]11-05-2024 Telephone encounter Note* Telephone Encounter - Ifeoma Davis MD - 07/07/2024 5:13 PM EST Would she be willing for an inhouse test? Due to her blindness? Regards, Ifeoma Davis MD [facility]11-05-2024 Telephone encounter Note* Telephone Encounter - [...] calling: self Call patient at: at home [phone] (home) [phone] (cell) Was an appointment scheduled: No Closing statement: Results or non-symptom based questions: Thank you for calling [facility], your call will be returned within the next business day. Myra Mathur [facility]11-05-2024 Telephone encounter Note* Telephone Encounter - [...] Myra Mathur July 07, 2024 9:49 AM [facility]11-05-2024 Miscellaneous Notes* Telephone Encounter - Toyin [...] 07, 2024 9:49 AM documented in this encounterAultman Orrville Hospital10-28-2024 Telephone encounter Note * Telephone Encounter [...] Dawkins LPN June 29, 2024 10:14 AM [facility]10-28-2024 Miscellaneous Notes* Telephone Encounter - Sarahi [...] 29, 2024 10:14 AM documented in this encounterAultman Orrville Hospital10-14-2024 History of Present illness Narrative* Chana Bridges MA - 06/15/2024 3:47 PM EDT POPULATION HEALTH NAVIGATION OUTREACH Action/ Med Adherence Atorvastatin: Last fill 03/04/24; 90 days - 0 refills Needs new Rx Unable to reach via phone (did not ring); [employer] message sent Reason for Outreach Med Adherence Patient Contacted: Unable or unnecessary to reach patient: Unable to leave message OMGhart message sent Navigation Signature: Chana Bridges MA June 15, 2024 3:48 PM documented in this encounterAultman Orrville Hospital10-11-2024 History of Present illness Narrative* Akanksha Ross MA - 06/12/2024 9:43 AM EDT POPULATION HEALTH NAVIGATION OUTREACH Action/FYI Patient is on [facility] CURRENT ROSTER Workbench list for below [...] Spoke to patient. Scheduled mammogram 06-18-24 in [place] Declined influenza Updated upcoming 2024 OV notes Please address due care gaps and HCC gap closure Reason for Outreach Care Gap/HCC or Scheduling Wellness Visits Care Gaps due: Breast Cancer Screening Flu Vaccine Patient Contacted: Spoke to patient/parent/or legal guardian Patient identified by name and : Yes Care Gap/HCC/Scheduling Wellness actions taken: Patient scheduled/pended orders: Breast Cancer Screening 06/18/2024 in [facility] with SCREEN MAMMO [facility] - Encounter for screening mammogram for malignant neoplasm of breast [Z12.31] 08/18/2024 in [facility] with CYNTHIA RAMOS 6 months VaTa and mac OCT 09/29/2024 in [facility] with IFEOMA DAVIS - 6 mo follow up; routine, Please address due care gap and HCC gap closure HCC related Navigation Signature: Akanksha Ross MA June 12, 2024 9:43 AM documented in this encounterAultman [facility]ville Hospital09-27-2024 History of Present illness Narrative* Aldair [...] will notify Pharmacy Navigation Signature: Eileen Quinteros [facility] Health Navigator May 29, 2024 2:07 PM documented in this encounterAultman Orrville Hospital09-12-2024 Telephone encounter Note * Telephone Encounter [...] and have staff phone her to schedule. [phone] [facility]09-12-2024 Miscellaneous Notes* Telephone Encounter - Clint [...] and have staff phone her to schedule. [phone] documented in this encounterAultman Orrville Hospital09-09-2024 Telephone encounter Note * Telephone Encounter - Khalida Agarwal - 05/11/2024 1:05 PM EDT Letter placed in mail to be mailed out to patient. Khalida Agarwal May 11, 2024 1:05 PM [facility]09-09-2024 Miscellaneous Notes* Telephone Encounter - Khalida [...] 06, 2024 3:18 PM documented in this encounterAultman Orrville Hospital09-05-2024 Telephone encounter Note * Telephone Encounter - Cynthia Ramos MD - 05/07/2024 4:30 PM EDT Condition is permanent. Letter updated and forwarded to Sana. Cynthia Ramos MD 05/07/2024 4:30 PM [facility]09-04-2024 Telephone encounter Note* Telephone Encounter - Barbie Alicea - 05/06/2024 3:16 PM EDT Patient states Certificate of Blindness letter dated 04/13 requires a duration. Patient would like letter mailed once completed. Barbie Alicea May 06, 2024 3:18 PM [facility]09-03-2024 Telephone encounter Note* Telephone Encounter - Cynthia Ramos MD - 05/05/2024 8:58 AM EDT Letter created. Please mail/fax. Cynthia Ramos MD 05/05/2024 8:58 AM [facility]09-03-2024 Miscellaneous Notes* Telephone Encounter - Cynthia [...] fax to [facility] at [phone]. Please advise Barbie Alicea May 01, 2024 11:58 AM documented in this encounterAultman Orrville Hospital08-30-2024 Telephone encounter Note * Telephone Encounter - Barbie Alicea - 05/01/2024 11:56 AM EDT Patient would like a letter stating dx, and what visual acuity is. Letter is needed for patient to get extra assistance with decreased vision. Once completed fax to [facility] at [phone]. Please advise Barbie Alicea May 01, 2024 11:58 AM [facility]08-26-2024 Telephone encounter Note* Telephone Encounter - [...] needed. Modesta Gallardo RN 2024 5:26 PM [facility]08-26-2024 Miscellaneous Notes* Telephone Encounter - Modesta [...] RN 2024 5:26 PM documented in this encounterAultman Orrville Hospital08-13-2024 Telephone encounter Note * Telephone Encounter - Emy Hanks - 04/14/2024 1:41 PM EDT Certificate scanned and mailed to patient. [facility]08-13-2024 Miscellaneous Notes* Telephone Encounter - Emy [...] 13, 2024 1:44 PM documented in this encounterAultman Orrville Hospital08-13-2024 Telephone encounter Note * Telephone Encounter - Cynthia Ramso MD - 04/14/2024 12:11 PM EDT Done. Cynthia Ramos MD 04/14/2024 12:11 PM [facility]08-12-2024 Telephone encounter Note* Telephone Encounter - Khalida Agarwal - 04/13/2024 1:42 PM EDT Patient states she needs a new certificate of blindness for a handicap placard. Khalida Agarwal April 13, 2024 1:44 PM [facility]08-10-2024 History of Present illness Narrative* Britta Gunn PA - 04/11/2024 12:02 PM EDT This note was created using [employer]. Subjective Allie Lynn is a 53 year [...] CT MAXILLOFAC/SINUS Comment: normal [facility]30[facility]20[facility] Comment: Small hiatal hernia, [...] Maternal Aunt 55 ovarian cancer Heart Son DE Ovarian cancer Maternal Grandmother Glaucoma No Family [...] ER evaluation. KENA Medrano documented in this encounterAultman Orrville Hospital08-01-2024 Telephone encounter Note * Telephone Encounter - Lina Murillo LPN - 04/02/2024 8:17 AM EDT Patient notified of below results. Lina Murillo LPN [facility]08-01-2024 Miscellaneous Notes* Telephone Encounter - Lina Murillo LPN - 04/02/2024 8:17 AM EDT Patient notified of below results. Lina Murillo LPN * Telephone Encounter - Lina Murillo LPN - 04/02/2024 8:15 AM EDT ----- Message from Ifeoma Davis MD sent at 04/01/2024 7:07 PM EDT ----- You are negative for hep C and HIV documented in this encounterAultman Orrville Hospital08-01-2024 Telephone encounter Note * Telephone Encounter - Lina Murillo LPN - 04/02/2024 8:15 AM EDT ----- Message from Ifeoma Davis MD sent at 04/01/2024 7:07 PM EDT ----- You are negative for hep C and HIV [facility]07-30-2024 History of Present illness Narrative* Ifeoma [...] her everyday life. Dr. 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 States she has not had a bleed in her eye at a long time, but at the same time she states she wouldn't see it at this point. Slowly progressive loss of peripheral vision. Patient also reports that she has issueswith calcified joints/arthritis. She has moved back to [place], so she can use the [employer] for going places, [employer]. She is engaged in a lot of activities, and is giving back to the community as much as she can in every way she can. She has a son in [place], and a brother near by. Her eyes [...] extremely active in the community. Takes the [employer] bus to [employer] every Saturday, [...] available full-time. Needs include home health aid, correction if applicable - says her boyfriend could [...] with an OT previously through [employer] in [place] previously who assisted with various techniques and [...] Dr. Cynthia Ramos M.D. 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 I also have reviewed and agree with the assessment and plan as stated above and agree with all of its relevant components. Cynthia Ramos MD February 18, 2024 1:35 PM documented in this encounterAultman Orrville [facility]06-18-2024 NoteDate of Procedure 02/18/2024. Clinical Systems Educator Information Electrocardiograph Repairer: tri. Start time: 12:53 PM. Stop time: 1:04 PM. Notes -- OCT macula 02/18/2024 OD atrophy; OS scar/atrophy, full thickness holeZEISS 01-01-2024 Telephone encounter Note* Telephone Encounter - Calli Duvall APRN.MOLECULAR SPECTROSCOPIST - 01/01/2024 1:16 PM EDT Prempro is prescribed by gynecology Calli Duvall APRN.MOLECULAR SPECTROSCOPIST [facility]05-01-2024 Miscellaneous Notes* Telephone Encounter - Calli Duvall APRN.CNP - 01/01/2024 1:16 PM EDT Prempro is prescribed by gynecology Calli Duvall APRN.MOLECULAR SPECTROSCOPIST * Telephone Encounter - Allie Mcknight LPN [...] you. Allie Mcknight LPN. documented in this encounterAultman Orrville Hospital05-01-2024 Telephone encounter Note * Telephone Encounter [...] Please advise. Thank you. Allie Mcknight LPN. [facility]04-26-2024 Telephone encounter Note* Telephone Encounter - Tori Morales MA - 12/27/2023 9:04 AM EDT Patient notified, [facility]04-26-2024 Miscellaneous Notes* Telephone Encounter - Tori [...] the Gabapentin rx. She is going to [facility] [place] via the bus and was hoping to roller picker rx while she was out. Please advise * Telephone Encounter - Allie Mcknight LPN - 12/25/2023 2:00 PM EDT Patient calling she had MRI of her right shoulder done at [facility]. She does not see Dr Brush until December 30 for possible injection or what treatment he plans to do. Patient was asking for a Gabapentin rx. She had taken it in the past. Patient said she did not have a tear, but not sure how to explain the results. Patient is going to ask [facility] to fax report, She is legally blind so she can not drive, to come to appt with provider right now. Patient uses [facility] for [facility] pharmacy, can get someone to roller picker rx for her. Please advise documented in this encounterAultman Orr[facility]04-26-2024 Telephone encounter Note * Telephone Encounter - David Anna APRN.CNP - 12/27/2023 7:29 AM EDT Gabapentin ordered as requested. Thank you David Anna APRN.CNP [facility]04-25-2024 Telephone encounter Note* Telephone Encounter - Allie Mcknight LPN - 12/26/2023 2:02 PM EDT Patient calling to check status of request for the Gabapentin rx. She is going to [facility] [place] via the bus and was hoping to roller picker rx while she was out. Please advise [facility]04-24-2024 Telephone encounter Note* Telephone Encounter - Allie Mcknight LPN - 12/25/2023 2:00 PM EDT Patient calling she had MRI of her right shoulder done at [facility]. She does not see Dr Brush until December 30 for possible injection or what treatment he plans to do. Patient was asking for a Gabapentin rx. She had taken it in the past. Patient said she did not have a tear, but not sure how to explain the results. Patient is going to ask [facility] to fax report, She is legally blind so she can not drive, to come to appt with provider right now. Patient uses [facility] for her pharmacy, can get someone to roller picker rx for her. Please advise [facility]04-23-2024 History of Present illness Narrative* Destiney [place]end[place] APRN.MOLECULAR SPECTROSCOPIST - 12/24/2023 12:45 PM EDT Allie is a 53 year old who presents for an annual gynecologic exam without complaints. Postmenopausal: ablation 2011- no bleeding HRT use: Yes, prempro Last Pap: 07/03/2019 normal HPV: 07/01/2019 negative History of abnormal pap: Yes Last mammogram: 2023 normal History of abnormal mammogram: No Sexually active: No OB History T0 L3 SAB0 IAB0 Ectopic0 Multiple0 Live Births0 Improvement Intern History LMP: Ablation Age at Menarche: Age at First : Age at Menopause: Improvement Intern History Comments: Sexual Activity: Not Currently; Male [...] Dr. Cynthia Ramos M.D. S BALLOON,[place] ABLATION [address] FAMILY HISTORY Problem Relation Age of Onset Heart Father Age 61 Heart Maternal Grandfather Cancer Paternal Grandmother Breast Cancer Maternal Aunt 55 ovarian cancer Heart Son DE Ovarian cancer Maternal Grandmother Glaucoma No Family [...] external genitalia normal, normal Bartholin's glands, urethra, [place]'s glands, no vulvar lesions, no cervical lesions, [...] year or sooner as needed Destiney Pend[place] APRN.MOLECULAR SPECTROSCOPIST documented in this encounterAultman Orr[facility]03-18-2024 History of Present illness Narrative* Adriana [...] Dr. Cynthia Ramos M.D. S BALLOON,[place]ERINE ABLATION [address]53 ALLERGIES Ultram [Tramadol Hcl], Darvocet A500 [Propoxyphene [...] Maternal Aunt 55 ovarian cancer Heart Son DE Ovarian cancer Maternal Grandmother Glaucoma No Family [...] - PREDNISONE 10 MG TABLET Adriana Vidal APRN.MOLECULAR SPECTROSCOPIST documented in this encounterAultman Orr[facility]03-13-2024 Miscellaneous Notes* Telephone Encounter - Angelica [...] you. Angelica Arreola RN. documented in this encounterAultman Orrville Hospital02-23-2024 History of Present illness Narrative* Alessandra [...] Care Gap or Scheduling/Wellness visits Payer: Payor: [facility] [employer] [facility] / Plan: [employer] MEDICARE ADVANTAGE HMO [...] 25, 2023 9:44 AM documented in this encounterAultman Orr[facility]02-09-2024 Miscellaneous Notes* Letter - Coordinator, Sidney - 10/11/2023 1:18 PM EST October 14, 2023 PID: [id number] Allie Lynn [address] [place] [address] Dear Ms. Lynn, We are pleased to [...] report will be kept on file at [facility] as part of your permanent medical record and are available for your continuing care. Thank you for allowing us to help in meeting your health care needs. Sincerely, Dr. Muñiz Interpreting Radiologist [facility] (Normal over 40) documented in this encounterAultman Orrville Hospital02-08-2024 History of Present illness Narrative* Carmen [...] PATIENT PRESENTS WITH AN IMPLANTABLE OR ATTACHED CATERPILLAR TRACTOR OPERATOR: No RADIOLOGY DEPARTMENT: Mammography PERIPHERAL IV DATA: Not applicable SIGNED BY: Rubin Alicea October 10, 2023 1:08 PM documented in this encounterAultman Orrville Hospital02-06-2024 Miscellaneous Notes* Telephone Encounter - Dara Valdez RN - 10/08/2023 10:43 AM EST Cande SOTOservice engine repairer at [employer] calls to report that completed health risk assessment care plan update was done and can be reviewed in availability portal. Cande states that provider can attend care team meeting by calling Cande. 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 I have seen and examined this patient. I have discussed the case and the management of this patient's care with the Resident/Fellow/Film And Video Graphics Designer, if applicable. I also have reviewed and agree with the assessment and plan as stated above and agree with all of its relevant components. Cynthia Ramos MD August 16, 2023 7:06 PM documented in this encounterAultman Orrville Hospital11-21-2023 Miscellaneous Notes* Telephone Encounter - Celeste [...] notify patient. Amy Adams documented in this encounterAultman Orrville Hospital09-28-2023 Nurse Note* Mel Garcia RN - 05/30/2023 2:[address] Connelly at bedside to discuss procedure/findings with patient and her friend. [facility]09-28-2023 Nurse Note* Mel Garcia RN - 05/30/2023 2:[address] Connelly at bedside to discuss procedure/findings with patient and her friend. documented in this encounterAultman Orrville Hospital09-28-2023 Anesthesiology Preoperative evaluation and management note* [...] Moderate Additional Comments: None Andry Connelly MD [facility] Work Phone: 1(887) 247-463809-28-2023 Miscellaneous Notes* Anesthesia PreOp - Andry Connelly [...] None Andry Connelly MD documented in this encounterAultman Orrville Hospital09-19-2023 History of Present illness Narrative* Virginia [...] her everyday life. Dr. 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 States she has not had a bleed in her eye at a long time, but at the same time she states she wouldn't see it at this point. Slowly progressive loss of peripheral vision. Patient also reports that she has issueswith calcified joints/arthritis. Just sold her home here in [place] and moved to [place] with her boyfriend, and her boyfriend doesn't feel like she's entirely safe in her day to day activities. Patient called [facility] and they advised that she have a home health order placed and faxed over to them-reports she's not sure all that she can be helped with. She is extremely active in the community. Takes the [employer] bus to [employer] every Saturday, [...] available full-time. Needs include home health aid, correction if applicable - says her boyfriend could [...] Had worked with an OT previously through [employer] in [place] previously who assisted with various techniques and [...] Dr. Cynthia Ramos M.D. 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 Trigger finger, unspecified finger, unspecified laterality - ICD9: 727.03, ICD10: M65.30 Refills provided on meloxicam per pt request - [facility] 4. [...] plan. [place] Avalos PA-C documented in this encounterAultman [facility]09-06-2023 Miscellaneous Notes* Telephone Encounter - Sita Mauricio LPN - 05/08/2023 9:25 AM EDT PATIENT NOTIFIED OF SAME. * Telephone Encounter - Ariadne Zaidi APRN.CNP - 05/07/2023 4:28 PM EDT Printed, will sign, please call patient to roller picker. Thanks! * Telephone Encounter - Lina Murillo LPN - 05/07/2023 1:16 PM EDT Patient is needing to renew her handicapped placard, it expires this month. Please call when approved and ready for pickup. Lina Murillo LPN documented in this encounterAultman [facility]09-01-2023 Miscellaneous Notes* Telephone Encounter - Fern [...] notify patient. Marnie Adams documented in this encounterAultman Orrville Hospital08-29-2023 Instructions* Patient Instructions* Cande Pozo PA-C [...] If you do not have a responsible lifter driver (family member or friend) withyou to take you home, your exam cannot be done with sedation and will be cancelled. Please bring a list of all of your current medications, including any Wlgt-dbz-Jjulubm medications with you. Medications If you take [...] your exam. 2 08/2019 documented in this encounterAultman Orrville Hospital08-29-2023 History of Present illness Narrative* Cande [...] Abs Lymph 1.00 - 4.00 k/uL 1.42 Harvey% % 9.8 Abs Harvey <0.87 k/uL 0.58 Eosin% % 3.1 Abs [...] Dr. Cynthia Ramos M.D. S BALLOON,UTERINE ABLATION [address] Allergies: ALLERGIES Allergen Reactions Ultram [Tramadol Hc* [...] Maternal Aunt 55 ovarian cancer Heart Son DE Ovarian cancer Maternal Grandmother Glaucoma No Family [...] which included preparing to see the patient, [id number] patient care, completing clinical documentation, obtaining and/or reviewing separately obtained history, performing a medically appropriate examination, counseling and educating the pat ient/family/caregiver, ordering medications, tests, or procedures, communicating with other HCPs (not separately reported), independently interpreting results (not separately reported), communicatingresults to the patient/family/caregiver, and care coordination (not separately reported). Cande Pozo PA-C April 30, 2023 1:23 PM documented in this encounterAultman Orrville [facility]08-24-2023 History of Present illness Narrative* Massimo Roberts MD - 04/25/2023 2:12 PM EDT Massimo Roberts MD Department of Orthopaedics Orthopaedics [address] [facility] [address] Dept: [phone] Dept April 25, 2023 CHIEF COMPLAINT: Established [...] Dr. Cynthia Ramos M.D. S BALLOON,[place] ABLATION [address] Medications: Current Outpatient Medications Medication Sig keTORolac [...] anxiety) Massimo Roberts MD documented in this encounterAultman [facility]08-14-2023 Miscellaneous Notes* Telephone Encounter - Allie [...] cost. Starla Mckeon LPN documented in this encounterAultman Orrville [facility]06-20-2023 History of Present illness Narrative* Cynthia [...] management of this patient's care with the Resident/Fellow/Film And Video Graphics Designer, if applicable. I also have reviewed and agree with the assessment and plan as stated above and agree with all of its relevant components. Cynthia Ramos MD February 19, 2023 3:11 PM documented in this encounterCleveland [id number] Miscellaneous Notes* Telephone Encounter - Celeste Cardona [...] you. Celeste Cardona LPN documented in this encounterAultman [facility]05-02-2023 Discharge summary Author Sharifa Morrissey [facility] January 01, 2023 12:18pm Note Date/Time January 01, 2023 12:18p [facility] Occupational Therapy [facility] [address] [place] [address] [address] [place] [address] / REHABILITATION SERVICES DISCHARGE SUMMARY MR#: [id number] Acct: [id number] Name: ALLIE LYNN Rep #: [id number] : 1970 52 From: Sharifa Morrissey OTR/L, [...] discharge status. % Improvement: 80 Objective/Function: right member services representative strength 50#. left member services representative strength 40# (US completed previous to member services representative). right RF PIP -5/45. left MF PIP -15/50 Patient Goals: Regain Mobility, Regain Strength, Decrease Pain, Use Hand/Wrist/Arm Normally Again Goal:Daily scar massage when approriate: Yes Goal:ROM equal to unaffected hand: Yes Goal:Track Liner Operator/Pinch strength at least 75% of unaffected hand: [...] please fell free to call me at [phone]. Thank you for the referral of this patient. Sincerely, Sharifa Morrissey, OTR/L, CHT <Electronically signed by Sharifa Morrissey OTR/Yonathan, CHT> 01/01/23 0360 CC: Dr. Ifeoma Davis MD; TAINA FAN ~ MK Signed [facility] Work Phone: [phone]) 184-309004-12-2023 Miscellaneous Notes* Telephone Encounter - Celeste Cardona [...] RX INSTRUCTIONS: Patient needs [place] to [place] today - she is going today to [facility] and since she cannot drive due to legally blind, please send JUVE so she can roller picker while at [facility] this morning. Please send 90 days to [facility] Mail order. Please call patient once 14 days is sent to [facility]. Patient aware RX will be sent to pharmacy. No need to notify patient. Patient aware RX escripted to mail away pharmacy. No need to notify patient. Melly Adams' documented in this encounterAultman [facility]04-04-2023 Instructions* Patient Instructions* Cynthia aRmos MD - 12/04/2022 11:15 AM EDT Continue Prednisolone (pink/white) 1 drop LEFT eye 4 x daily Continue Ketorolac (saunders) 1 drop LEFT eye 4 x daily OK to use refresh or gel drop documented in this encounterAultman Orrville Hospital04-04-2023 History of Present illness Narrative* Cynthia [...] management of this patient's care with the Resident/Fellow/Film And Video Graphics Designer, if applicable. I also have reviewed and agree with the assessment and plan as stated above and agree with all of its relevant components. Cynthia Ramos MD December 04, 2022 11:14 AM documented in this encounterAultman Orr[facility]03-23-2023 Instructions* Patient Instructions* Cynthia Ramos MD - 11/22/2022 12:23 PM EDT STOP Polymyxin trimethoprim (clear/white) Continue Prednisolone (pink/white) 1 drop LEFT eye 4 x daily Continue Ketorolac (saunders) 1 drop LEFT eye 4 x daily OK to use refresh OK to stop documented in this encounterAultman Orrville Hospital03-23-2023 History of Present illness Narrative* Cynthia [...] management of this patient's care with the Resident/Fellow/Film And Video Graphics Designer, if applicable. I also have reviewed [...] management of this patient's care with the Resident/Fellow/Film And Video Graphics Designer, if applicable. I also have reviewed and agree with the assessment and plan as stated above and agree with all of its relevant components. Cynthia Ramos MD September 25, 2022 3:18 PM documented in this encounterAultman Orr[facility]03-20-2023 Miscellaneous Notes* Telephone Encounter - Henrik [...] Saturday evening dileep seen. She lives in [place] and does not have transportation available. We discussed being seen at the ED for evaluation and potential evaluation by an paper sales manager from [facility]. I advised that if she is not seen in the ED on 11/18/2022 that she either follow-up with Dr. Torres in the [facility] office or contact [facility] to be seen there. She has seen doctors at that office in the past. Henrik Chen MD documented in this encounterAultman [facility]03-20-2023 History of Present illness Narrative* Valentine [...] 19, 2022 3:49 PM documented in this encounterAultman Orrville Hospital03-20-2023 Miscellaneous Notes* Telephone Encounter - Khalida [...] develops new flashes or floaters. As the [place] doctor discussed with her, this can sometimes occur and we can often treat it with alaser in the office. We can discuss at her next appointment. Cynthia Ramos MD 11/19/2022 3:31 PM * Telephone Encounter - Khalida Agarwal - 11/19/2022 9:46 AM EDT Received office notes from [place]. Patient was seen on 11/18 at [facility] regarding abnormal pupil and hemorrhage [...] and she was also seen at the [place] [facility]. She states that the doctor at that office removed eye patch and noticed a "cosmetic issue"where "vitreous gel landed below pupil". I asked patient to have [place] fax over their notes so I can [...] 19, 2022 8:36 AM documented in this encounterAultman Orrville Hospital03-20-2023 History of Present illness Narrative* Taina Fan PA-C - 11/19/2022 2:59 PM EDT Taina Fan PA-C Department of Orthopaedics Orthopaedics [address] [facility] [address] Dept: [phone] Dept November 19, 2022 CHIEF COMPLAINT: Established [...] for OT was placed and faxed to [facility]. We discussed proper hand washing, no soaking [...] [Hydrocodone-Acetaminophen] This note was partially generated using fsboWOW voice recognition system, and there may be [...] site. Alis Eid LPN documented in this encounterAultman Orrville Hospital03-17-2023 Instructions* Patient Instructions* Cynthia Ramos MD [...] Shadow in peripheral vision documented in this encounterAultman Orrville Hospital03-17-2023 History of Present illness Narrative* Cynthia [...] management of this patient's care with the Resident/Fellow/Film And Video Graphics Designer, if applicable. I also have reviewed [...] management of this patient's care with the Resident/Fellow/Film And Video Graphics Designer, if applicable. I also have reviewed and agree with the assessment and plan as stated above and agree with all of its relevant components. Cynthia Ramos MD September 25, 2022 3:18 PM documented in this encounterAultman [facility]03-16-2023 History of Past illness Narrative* Problem Noted Date Resolved Date Nuclear senile cataract of left eye 11/15/2022 11/15/2022 Combined forms of age-related cataract of right eye 06/25/2022 06/25/2022 Photopsia 06/25/2022 06/25/2022 documented as of this encounter (statuses as of 11/16/2022) [facility] History of Past illness Narrative* Problem Noted Date Resolved Date Nuclear senile cataract of left eye 11/15/2022 11/15/2022 Combined forms of age-related cataract of right eye 06/25/2022 06/25/2022 Photopsia 06/25/2022 06/25/2022 documented as of this encounter (statuses as of 11/19/2022) [facility] History of Past illness Narrative* Problem Noted Date Resolved Date Nuclear senile cataract of left eye 11/15/2022 11/15/2022 Combined forms of age-related cataract of right eye 06/25/2022 06/25/2022 Photopsia 06/25/2022 06/25/2022 documented as of this encounter (statuses as of 11/20/2022) [facility] History of Past illness Narrative* Problem Noted Date Resolved Date Nuclear senile cataract of left eye 11/15/2022 11/15/2022 Combined forms of age-related cataract of right eye 06/25/2022 06/25/2022 Photopsia 06/25/2022 06/25/2022 documented as of this encounter (statuses as of 11/20/2022) [facility] History of Past illness Narrative* Problem Noted Date Resolved Date Nuclear senile cataract of left eye 11/15/2022 11/15/2022 Combined forms of age-related cataract of right eye 06/25/2022 06/25/2022 Photopsia 06/25/2022 06/25/2022 documented as of this encounter (statuses as of 11/26/2022) [facility] History of Past illness Narrative* Problem Noted Date Resolved Date Nuclear senile cataract of left eye 11/15/2022 11/15/2022 Combined forms of age-related cataract of right eye 06/25/2022 06/25/2022 Photopsia 06/25/2022 06/25/2022 documented as of this encounter (statuses as of 12/02/2022) [address]16-2023 History of Past illness Narrative* Problem Noted Date Resolved Date Nuclear senile cataract of left eye 11/15/2022 11/15/2022 Combined forms of age-related cataract of right eye 06/25/2022 06/25/2022 Photopsia 06/25/2022 06/25/2022 documented as of this encounter (statuses as of 12/05/2022) [facility]03-16-2023 History of Past illness Narrative* Problem Noted Date Resolved Date Nuclear senile cataract of left eye 11/15/2022 11/15/2022 Combined forms of age-related cataract of right eye 06/25/2022 06/25/2022 Photopsia 06/25/2022 06/25/2022 documented as of this encounter (statuses as of 12/13/2022) [facility]03-16-2023 History of Past illness Narrative* Problem [...] of this encounter (statuses as of 01/30/2023) [address]16-2023 History of Past illness Narrative* Problem [...] of this encounter (statuses as of 02/21/2023) [facility] History of Past illness Narrative* Problem [...] of this encounter (statuses as of 04/16/2023) [facility]20[facility] History of Past illness Narrative* Problem [...] of this encounter (statuses as of 04/30/2023) [facility] History of Past illness Narrative* Problem [...] of this encounter (statuses as of 05/03/2023) [facility] History of Past illness Narrative* Problem [...] of this encounter (statuses as of 05/08/2023) [facility] History of Past illness Narrative* Problem [...] of this encounter (statuses as of 05/23/2023) [facility] History of Past illness Narrative* Problem [...] of this encounter (statuses as of 05/28/2023) [facility] History of Past illness Narrative* Problem [...] of this encounter (statuses as of 06/25/2023) [facility] History of Past illness Narrative* Problem [...] of this encounter (statuses as of 07/24/2023) [facility] History of Past illness Narrative* Problem [...] of this encounter (statuses as of 09/02/2023) [facility] History of Past illness Narrative* Problem [...] of this encounter (statuses as of 10/04/2023) [facility] History of Past illness Narrative* Problem [...] of this encounter (statuses as of 10/08/2023) [facility] History of Past illness Narrative* Problem [...] of this encounter (statuses as of 10/11/2023) [facility] History of Past illness Narrative* Problem [...] of this encounter (statuses as of 10/15/2023) [facility] History of Past illness Narrative* Problem [...] of this encounter (statuses as of 10/25/2023) [facility] History of Past illness Narrative* Problem [...] of this encounter (statuses as of 11/13/2023) [facility] History of Past illness Narrative* Problem [...] of this encounter (statuses as of 11/18/2023) [facility] History of Past illness Narrative* Problem [...] of this encounter (statuses as of 05/22/2023) [facility]03-14-2023 Miscellaneous Notes* Telephone Encounter - Mauricio Guzmanshannonneema - 11/13/2022 3:36 PM EDT Called and informed patient to arrive at [address] [place] [address] at 10:45 am for 11/15/22 surgerywith Cynthia Ramos MD. Also reminded patient to refrain from eating or drinking for 8 hours prior to arrival for surgery, and to begin eyedrops in the left eye on 11/13/22. Patient states understanding and is agreeable. documented in this encounterAultman [facility]03-06-[facility]23 Miscellaneous Notes* Telephone Encounter - Chana Mao Ma - 11/05/2022 11:19 AM EST I called and spoke with patient. She will roller picker more hibiclens. Packet left at Ortho front desk coordinator. * Telephone Encounter - Natasha Jurado LPN - 11/05/2022 10:28 AM EST Patient called. Verified name and date of . Patient states she has surgery scheduled Saturdayand misplaced the packet of hand sleeping room cleaner needed for the day of surgery. Can patient roller picker anotherpacket? Natasha Jurado LPN documented in this encounterAultman [facility]03-03-2023 Miscellaneous Notes* Telephone Encounter - Chana [...] phone call back Please advise patient at [phone]. Thank you Mary Cochran LPN documented in this encounterAultman [facility]03-01-2023 NoteHNO ID: [id number] Author: Michelle Perez, OT/L Service: ? Author [...] Planned: 6 Planned Treatment Interventions: Therapeutic exercise (62527), Self-halfway management (55893), Patient/Family/Caregiver Education, Functional training, Community / Work [...] procedure. She is pursuing financial assistance from "[employer]" IN [place] and has the letter with equipment recommendations [...] to her. 6: TO INCREASE PARTICIPATION WITH [employer]:- trialed the [employer] "MAX TV GLASSES" and was able to pick out signs, traffic, people outside when trialing same. Reviewed cleaning, and care instructions for taking care of them. She is wanting to borrow these for watching tv, seeing screens at her anabaptism to increase active participation with same. She id understanding instructions and accurately adjusted the focal distance with the lenses after practicing with same. 7: PROCURING OPTICAL AIDS/DEVICES: as id. above, did review her paperwork and recommendations made: *contact [facility] services in [facility] to verify need of needing two written estimates;*if she does require two estimates then she was provided with another agency to assist w/ selling the recommended devices ("[employer]") and (more content not included)...[facility]03-01-2023 History of Present illness Narrative * Michelle [...] Planned: 6 Planned Treatment Interventions: Therapeutic exercise (45554), Self-halfway management (17184), Patient/Family/Caregiver Education, Functional training, Community / Work [...] procedure. She is pursuing financial assistance from "[employer]" IN [place] and has the letter with equipment recommendations [...] to her. 6: TO INCREASE PARTICIPATION WITH [employer]:- trialed the [employer] "MAX TV GLASSES" and wasable to pick out signs, traffic, people outside when trialing same. Reviewed cleaning, and care instructions for taking care of them. She is wanting to borrow these for watching tv, seeing screens ather anabaptism to increase active participation with same. She id understanding instructions and accurately adjusted the focal distance with the lenses after practicing with same. 7: PROCURING OPTICAL AIDS/DEVICES: as id. above, did review her paperwork and recommendations made:*contact [facility] services in [facility] to verify need of needing [...] Planned: 6 Planned Treatment Interventions: Therapeutic exercise (48297), Self-halfway management (27252), Patient/Family/Caregiver Education, Functional training, Community / Work [...] 76 Michelle Perez OT/L documented in this encounterAultman Orrville [facility]02-24-2023 Miscellaneous Notes* Telephone Encounter - Viviana Cochran - 10/26/2022 9:40 AM EST Patient left message in surgery scheduling to reschedule 10/29/22 IOL measurements (ascan). Called patient and offered 11/08/22 at 8:30 am. Patient declines due to has hand surgery the day before. States she will arrange transportation with a family member (called [facility] too late to set up through them). Will keep 10/29/22 as scheduled. documented in this encounterAultman [facility]02-21-[facility] History of Present illness Narrative* Mel [...] 23, 2022 4:42 PM documented in this encounterAultman [facility]02-15-2023 NoteHNO ID: [id number] Author: Michelle Perez, OT/L Service: ? Author [...] level with same. She was provided needle building tech, and pre threaded needles with colored thread [...] clips. 6: Threading a needle/sewing: issued needle building tech and self threaded needles and with use of the floor stand JIM ALMANZAR she will practice with same but did not formally have her practice on this date. Provided instruction and education and demonstration and she was familiar w/ the filament needle building tech presented. 7: Eating neatly: on the self [...] if needed in t (more content not included)...[facility] 10-17-2022 History of Present illness Narrative* Michelle [...] level with same. She was provided needle building tech, and pre threaded needles with colored thread [...] clips. 6: Threading a needle/sewing: issued needle building tech and self threaded needles and with use of the floor stand JIM LITE she will practice with same but did not formally have her practice on this date. Provided instruction and education and demonstration and she was familiar w/ the filament needle building tech presented. 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 TO BORROW THE LIGHT EMILIANO FIT OVER FILTERS. WAS ISSUED ADDITIONAL BOLD LINE PAPER TABLETS, SOCK CLIPS, NEEDLE REGIONAL FACILITIES MANAGER, SELF THREADED NEEDLES AND A LED FLASHLIGHT. [...] 69 Michelle Perez OT/L documented in this encounterAultman Orrville Hospital02-14-2023 History of Present illness Narrative* Ifeoma [...] EXTRACAP,INSERT LENS Right 06/25/2022 S BALLOON,[place] ABLATION [address] FAMILY HISTORY Problem Relation Age of Onset Heart Father Age 61 Heart Maternal Grandfather Cancer Paternal Grandmother Breast Cancer Maternal Aunt 55 ovarian cancer Heart Son DE Ovarian cancer Maternal Grandmother Glaucoma No Family [...] remaining Ifeoma Davis MD documented in this encounterAultman Orrville [facility]02-07-2023 History of Present illness Narrative* Brunilda [...] 09, 2022 12:50 PM documented in this encounterAultman Orrville Hospital02-02-2023 Miscellaneous Notes* Telephone Encounter - Clint Brennan RN - 10/04/2022 8:15 AM EST Patient reports she is picking up the Rx today. * Telephone Encounter - Ifeoma Davis MD - 10/03/2022 7:58 PM EST Called in z [facility] for the patient Regards, Ifeoma [...] can not drive and can have friend roller picker rx. Patient is asking for [facility] rx to be sent to [facility] please. Please advise documented in this encounterAultman Orrville Hospital01-31-2023 Miscellaneous Notes* Telephone Encounter - Chana Mao Ma - 10/02/2022 8:44 AM EST Surgery has been scheduled as requested. * Telephone Encounter - Chana Mao Ma - 10/01/2022 4:00 PM EST Surgical request completed for right ring and left middle trigger finger releases at [facility] on 11/02/2022. Post op appointments have been scheduled and mailed to patient. documented in this encounterAultman Orrville Hospital01-30-2023 History of Present illness Narrative* Massimo Roberts MD - 10/01/2022 2:19 PM EST Massimo Roberts MD Department of Orthopaedics Orthopaedics [address] [facility] [address] Dept: [phone] Dept October 01, 2022 CHIEF COMPLAINT: Established [...] EXTRACAP,INSERT LENS Right 06/25/2022 S BALLOON,UTERINE ABLATION [address]35 Medications: Current Outpatient Medications Medication Sig mometasone [...] anxiety) Massimo Roberts MD documented in this encounterAultman [facility]01-30-2023 History of Present illness Narrative* Laura [...] 01, 2022 2:16 PM documented in this encounterAultman Orr[facility]01-27-2023 Miscellaneous Notes* Letter - Mammography Coordinator - 09/28/2022 3:14 PM EST October 01, 2022 PID: [id number] Allie Lynn [address] [place] [id number] Dear Ms. Lynn, Your recent breast imaging exam on 09/27/2022 showed a possible finding that requires additional imaging studies for a complete evaluation. Most such findings are probably benign (not cancer). If you have a healthcare provider who ordered/prescribed your screening mammogram: Please call [phone] or EXT: [phone] to schedule an appointment for your additional [...] and reports are kept on file at [facility] as part of your permanent medical record, and are available for your continuing care. Thank you for allowing us to help in meeting your health care needs. Sincerely, Dr. Osei Interpreting Radiologist [facility] (Additional imaging) documented in this encounterAultman Orrville Hospital01-26-2023 History of Present illness Narrative* Kimberley [...] IV DATA: Not applicable SIGNED BY: Chacha CarltonGreenTec-USA Jared September 27, 2022 1:05 PM documented in this encounterAultman Orrville Hospital01-24-2023 History of Present illness Narrative* Cynthia [...] patient was offered a surgery/procedure at a [facility] facility. The surgeon/proceduralist and patient have [...] management of this patient's care with the Resident/Fellow/Film And Video Graphics Designer, if applicable. I also have reviewed [...] management of this patient's care with the Resident/Fellow/Film And Video Graphics Designer, if applicable. I also have reviewed and agree with the assessment and plan as stated above and agree with all of its relevant components. Cynthia Ramos MD September 25, 2022 3:18 PM documented in this encounterAultman Orrville [facility]01-18-2023 NoteHNO ID: [id number] Author: Michelle Perez, OT/L Service: ? Author [...] Planned: 6 Planned Treatment Interventions: Therapeutic exercise (59059);Self-halfway management (15336);Patient/Family/Caregiver Education;Functional training;Community / Work Reintegration PLAN FOR [...] Treatment: (was seen by low vision referring press operator apprentice, Dr. Mason recently. 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01-18-2023 History of Present illness Narrative* Michelle Anders [...] Planned: 6 Planned Treatment Interventions: Therapeutic exercise (58326);Self-halfway management (67563);Patient/Family/Caregiver Education;Functional training;Community / Work Reintegration PLAN FOR [...] Treatment: (was seen by low vision referring press operator apprentice, Dr. Mason recently. 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 Patient is waiting for LEFT eye cataract extraction and currently is not able to wear corrective glasses. Patient id. Losing her prescription sunglasses and only has wrap around dark saunders filters. Pt. Is applying for financial resources for recommended optical aids/devices from her local "[employer]" in [facility] but needs prices from two providers and was provided contact information from"[employer]" to assist with devices that referring low vision press operator apprentice (Dr. Mason) provided to her at time of her assessment. PSYCHOSOCIAL ASSESSMENT: Alert & Oriented X 4. Affect: appropriate, reasonably positive mood , and hyper verbal/tangential. Memory: no gross deficits observed. Concentration: WFL. Language: verbal and reading w/ appropriate use of adaptive equipment. Fund of Knowledge: High Patient Reports her: Motivation is High. Activity level is High. [place] for ADL is: Average. Life satisfaction is: [...] needed. 6: COMMUNITY SUPPORT/RESOURCES: provided her with [facility] resources for support ([employer] [facility] [employer], AND [employer]) and she is already set up with [...] 74 Michelle Perez, OT/L documented in this encounterAultman Orrville [facility]01-18-2023 Miscellaneous Notes* Telephone Encounter - Barbie Alicea Pss - 09/19/2022 9:50 AM EST Per Ilsa at Occupational Therapy she does not help with white tsai/mobile training. She states shesent you a message. She states she will call patient and explain this to her and see if she still wants to come in for her appointment today. documented in this encounterAultman Orrville Hospital12-15-2022 History of Present illness Narrative* Wolfemily [...] as needed LV exam documented in this encounterAultman Orrville Hospital12-13-2022 Miscellaneous Notes* Telephone Encounter - Starla [...] affordable for her. Thank you David Anna APRN.CNP * Telephone Encounter - Starla [...] can reorder this. Thank you David Anna APRN.MOLECULAR SPECTROSCOPIST * Telephone Encounter - Lea Roberts Pss [...] advise. Lea Roberts Pss documented in this encounterAultman Orrville Hospital11-22-2022 History of Present illness Narrative* Jonathon [...] components. Jonathon Eugene MD documented in this encounterAultman Orrville Hospital11-22-2022 Miscellaneous Notes* Telephone Encounter - Aleksandra Min LPN - 07/24/2022 11:21 AM EST Patient notified. Verbalized understanding. * Telephone Encounter - Ifeoma Davis MD - 07/23/2022 6:53 PM EST I sent this to Ifeoma Hinson MD * Telephone Encounter - Melly Prado [facility] [place] - 07/23/2022 12:10 PM EST Allie Lynn [...] calling: self Call patient at: at home [phone] (home) [phone] (cell) Was an appointment scheduled: No Closing statement: Results or non-symptom based questions: Thank you for calling [facility], your call will be returned within the next business day. Melly Prado Pss documented in this encounterAultman Orrville Hospital11-21-2022 Miscellaneous Notes* Telephone Encounter - Celeste [...] notify patient. Melly Adams documented in this encounterAultman Orrville Hospital11-21-2022 Miscellaneous Notes* Telephone Encounter - Vanessa [...] patient. Melly Prado Pss documented in this encounterAultman Orrville Hospital11-03-2022 Miscellaneous Notes* Telephone Encounter - Dara [...] advise, Dara Valdez RN documented in this encounterAultman Orrville Hospital11-01-2022 Instructions* Patient Instructions* Jonathon Eugene MD - 07/03/2022 1:14 PM EDT -prednisolone (white or pink cap) four times a day x 1 week, then three times a day for 1 week, then twice a day for 1 week, then once a day for 1 week, then stop -vigamox (mora cap) four times a day for 1 week, then stop documented in this encounterAultman Orrville Hospital11-01-2022 History of Present illness Narrative* Jonathon [...] components. Jonathon Eugene MD documented in this encounterAultman Orrville Hospital10-28-2022 History of Present illness Narrative* Valentine [...] 29, 2022 12:01 PM documented in this encounterAultman Orrville Hospital10-28-2022 Miscellaneous Notes* Telephone Encounter - Tori [...] Please review and advise. documented in this encounterAultman Orrville Hospital10-28-2022 Miscellaneous Notes* Telephone Encounter - Janet Rivero RN - 06/29/2022 8:59 AM EDT Patient has been scheduled for today 06/29/2022 at the [place] office with Dr. Torres. Janet Rivero RN June 29, 2022 8:59 AM * Telephone Encounter - Janet Rivero RN - 06/29/2022 7:35 AM EDT Received message via Secure Chat from Dr. Eugene that due to patient living in [place] that she could see Dr. Torres for a dilated exam as well. If patient wants seen by Dr. Eugene he is at [facility]. Janet Rivero RN June 29, 2022 7:36 AM * Telephone Encounter - Janet Rivero RN - 06/28/2022 6:07 PM EDT Discussed patient with Dr. Eugene. He advised for patient to be seen on 06/29/[address] Ramos. Routed to [facility] staff to schedule. Janet Rivero [...] can do to help. documented in this encounterAultman Orrville Hospital10-25-2022 Instructions* Patient Instructions* Jonathon Eugene MD - 06/26/2022 1:40 PM EDT -prednisolone every two hours right eye -vigamox four times a day right eye -geldrops left eye -ointment at bedtime left eye documented in this encounterAultman Orrville Hospital10-25-2022 History of Present illness Narrative* Jonathon [...] components. Jonathon Eugene MD documented in this encounterAultman Orrville Hospital10-24-2022 History of Past illness Narrative* Problem Noted Date Resolved Date Combined forms of age-related cataract of right eye 06/25/2022 06/25/2022 Photopsia 06/25/2022 06/25/2022 documented as of this encounter (statuses as of 06/25/2022) [facility] of Past illness Narrative* Problem Noted Date Resolved Date Combined forms of age-related cataract of right eye 06/25/2022 06/25/2022 Photopsia 06/25/2022 06/25/2022 documented as of this encounter (statuses as of 06/26/2022) [facility] of Past illness Narrative* Problem Noted Date Resolved Date Combined forms of age-related cataract of right eye 06/25/2022 06/25/2022 Photopsia 06/25/2022 06/25/2022 documented as of this encounter (statuses as of 06/26/2022) [facility] of Past illness Narrative* Problem Noted Date Resolved Date Combined forms of age-related cataract of right eye 06/25/2022 06/25/2022 Photopsia 06/25/2022 06/25/2022 documented as of this encounter (statuses as of 06/29/2022) [facility] of Past illness Narrative* Problem Noted Date Resolved Date Combined forms of age-related cataract of right eye 06/25/2022 06/25/2022 Photopsia 06/25/2022 06/25/2022 documented as of this encounter (statuses as of 06/29/2022) [facility] of [facility] illness Narrative* Problem Noted Date Resolved Date Combined forms of age-related cataract of right eye 06/25/2022 06/25/2022 Photopsia 06/25/2022 06/25/2022 documented as of this encounter (statuses as of 06/29/2022) [facility] of [facility] illness Narrative* Problem Noted Date Resolved Date Combined forms of age-related cataract of right eye 06/25/2022 06/25/2022 Photopsia 06/25/2022 06/25/2022 documented as of this encounter (statuses as of 07/03/2022) [facility] Narrative* Problem Noted Date Resolved Date Combined forms of age-related cataract of right eye 06/25/2022 06/25/2022 Photopsia 06/25/2022 06/25/2022 documented as of this encounter (statuses as of 07/05/2022) [facility] of [facility] illness Narrative* Problem Noted Date Resolved Date Combined forms of age-related cataract of right eye 06/25/2022 06/25/2022 Photopsia 06/25/2022 06/25/2022 documented as of this encounter (statuses as of 07/23/2022) [facility] Narrative* Problem Noted Date Resolved Date Combined forms of age-related cataract of right eye 06/25/2022 06/25/2022 Photopsia 06/25/2022 06/25/2022 documented as of this encounter (statuses as of 07/24/2022) [facility] Narrative* Problem Noted Date Resolved Date Combined forms of age-related cataract of right eye 06/25/2022 06/25/2022 Photopsia 06/25/2022 06/25/2022 documented as of this encounter (statuses as of 07/24/2022) [facility] Narrative* Problem Noted Date Resolved Date Combined forms of age-related cataract of right eye 06/25/2022 06/25/2022 Photopsia 06/25/2022 06/25/2022 documented as of this encounter (statuses as of 07/25/2022) [facility] illness Narrative* Problem Noted Date Resolved Date Combined forms of age-related cataract of right eye 06/25/2022 06/25/2022 Photopsia 06/25/2022 06/25/2022 documented as of this encounter (statuses as of 08/14/2022) [facility] History of Past illness Narrative* Problem Noted Date Resolved Date Combined forms of age-related cataract of right eye 06/25/2022 06/25/2022 Photopsia 06/25/2022 06/25/2022 documented as of this encounter (statuses as of 08/16/2022) [facility] History of Past illness Narrative* Problem Noted Date Resolved Date Combined forms of age-related cataract of right eye 06/25/2022 06/25/2022 Photopsia 06/25/2022 06/25/2022 documented as of this encounter (statuses as of 09/20/2022) [facility] History of Past illness Narrative* Problem Noted Date Resolved Date Combined forms of age-related cataract of right eye 06/25/2022 06/25/2022 Photopsia 06/25/2022 06/25/2022 documented as of this encounter (statuses as of 09/26/2022) [facility] History of Past illness Narrative* Problem Noted Date Resolved Date Combined forms of age-related cataract of right eye 06/25/2022 06/25/2022 Photopsia 06/25/2022 06/25/2022 documented as of this encounter (statuses as of 09/27/2022) [facility] History of Past illness Narrative* Problem Noted Date Resolved Date Combined forms of age-related cataract of right eye 06/25/2022 06/25/2022 Photopsia 06/25/2022 06/25/2022 documented as of this encounter (statuses as of 09/28/2022) [facility] History of Past illness Narrative* Problem Noted Date Resolved Date Combined 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 06/25/2022 06/25/2022 Photopsia 06/25/2022 06/25/2022 documented as of this encounter (statuses as of 10/01/2022) [facility] History of Past illness Narrative* Problem Noted Date Resolved Date Combined forms of age-related cataract of right eye 06/25/2022 06/25/2022 Photopsia 06/25/2022 06/25/2022 documented as of this encounter (statuses as of 10/02/2022) [facility] History of Past illness Narrative* Problem Noted Date Resolved Date Combined forms of age-related cataract of right eye 06/25/2022 06/25/2022 Photopsia 06/25/2022 06/25/2022 documented as of this encounter (statuses as of 10/02/2022) [facility] History of Past illness Narrative* Problem Noted Date Resolved Date Combined forms of age-related cataract of right eye 06/25/2022 06/25/2022 Photopsia 06/25/2022 06/25/2022 documented as of this encounter (statuses as of 10/04/2022) [facility] History of Past illness Narrative* Problem Noted Date Resolved Date Combined 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 06/25/2022 06/25/2022 Photopsia 06/25/2022 06/25/2022 documented as of this encounter (statuses as of 10/09/2022) [facility] History of Past illness Narrative* Problem Noted Date Resolved Date Combined forms of age-related cataract of right eye 06/25/2022 06/25/2022 Photopsia 06/25/2022 06/25/2022 documented as of this encounter (statuses as of 10/11/2022) [facility] History of Past illness Narrative* Problem Noted Date Resolved Date Combined forms of age-related cataract of right eye 06/25/2022 06/25/2022 Photopsia 06/25/2022 06/25/2022 documented as of this encounter (statuses as of 10/17/2022) [facility] History of Past illness Narrative* Problem Noted Date Resolved Date Combined forms of age-related cataract of right eye 06/25/2022 06/25/2022 Photopsia 06/25/2022 06/25/2022 documented as of this encounter (statuses as of 10/17/2022) [facility] History of Past illness Narrative* Problem Noted Date Resolved Date Combined forms of age-related cataract of right eye 06/25/2022 06/25/2022 Photopsia 06/25/2022 06/25/2022 documented as of this encounter (statuses as of 10/25/2022) [facility] History of Past illness Narrative* Problem Noted Date Resolved Date Combined forms of age-related cataract of right eye 06/25/2022 06/25/2022 Photopsia 06/25/2022 06/25/2022 documented as of this encounter (statuses as of 10/26/2022) [facility] History of Past illness Narrative* Problem Noted Date Resolved Date Combined forms of age-related cataract of right eye 06/25/2022 06/25/2022 Photopsia 06/25/2022 06/25/2022 documented as of this encounter (statuses as of 10/29/2022) [facility] History of Past illness Narrative* Problem Noted Date Resolved Date Combined forms of age-related cataract of right eye 06/25/2022 06/25/2022 Photopsia 06/25/2022 06/25/2022 documented as of this encounter (statuses as of 10/31/2022) [facility] History of Past illness Narrative* Problem Noted Date Resolved Date Combined forms of age-related cataract of right eye 06/25/2022 06/25/2022 Photopsia 06/25/2022 06/25/2022 documented as of this encounter (statuses as of 11/02/2022) [facility] History of Past illness Narrative* Problem Noted Date Resolved Date Combined forms of age-related cataract of right eye 06/25/2022 06/25/2022 Photopsia 06/25/2022 06/25/2022 documented as of this encounter (statuses as of 11/05/2022) [facility] History of Past illness Narrative* Problem Noted Date Resolved Date Combined forms of age-related cataract of right eye 06/25/2022 06/25/2022 Photopsia 06/25/2022 06/25/2022 documented as of this encounter (statuses as of 11/13/2022) [facility] History of Past illness Narrative* Problem Noted Date Diagnosed Date Resolved Date Combined forms of age-relate d cataract of right eye 06/25/2022 06/25/2022 Photopsia 06/25/2022 06/25/2022 Combined forms of age-relate d cataract, left eye 04/03/2022 12/29/2022 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, right, indeterminate stage 10/26/2021 0 12/29/2022 documented as of this encounter (statuses as of 07/06/2023) [facility] History of Past illness Narrative* Problem Noted Date Diagnosed Date Resolved Date Combined forms of age-relate d cataract of right eye 06/25/2022 06/25/2022 Photopsia 06/25/2022 06/25/2022 Combined forms of age-relate d cataract, left eye 04/03/2022 12/29/2022 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, right, indeterminate stage 10/26/2021 0 12/29/2022 documented as of this encounter (statuses as of 07/06/2023) [facility] History of Past illness Narrative* Problem Noted Date Diagnosed Date Resolved Date Combined forms of age-relate d cataract of right eye 06/25/2022 06/25/2022 Photopsia 06/25/2022 06/25/2022 Combined forms of age-relate d cataract, left eye 04/03/2022 12/29/2022 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, right, indeterminate stage 10/26/2021 0 12/29/2022 documented as of this encounter (statuses as of 07/06/2023) [facility] History of Past illness Narrative* Problem Noted Date Diagnosed Date Resolved Date Combined forms of age-relate d cataract of right eye 06/25/2022 06/25/2022 Photopsia 06/25/2022 06/25/2022 Combined forms of age-relate d cataract, left eye 04/03/2022 12/29/2022 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 Author Type: Registered Nurse Type: Nursing Progress Note Filed: 06/25/2022 9:59 AM Note Text: Spoke with Mallika CHEMIST PROTEINS that patient has questions for Dr. Eugene prior to procedure.[id number] Discharge instructions* Discharge Instr - Other [...] 38.3 C Trouble breathing Contact Jonathon Eugene [phone] and leave voicemail -emergency numbers: [phone] or ext [phone] and ask for the eye doctor conveyor tender. documented in this encounter[facility] History and physical note * Jonathon [...] 2022 TIME: 10:02 AM documented in this [facility]10-24-2022 Nurse Note* Allie Cardoso RN - 06/25/2022 9:58 AM EDT Spoke with Mallika CHEMIST PROTEINS that patient has questions for Dr. Eugene prior to procedure. documented in this [facility]10-24-2022 Surgical operation note* Operative Report - Jonathon Eugene MD - 06/25/2022 9:58 AM EDT OPERATIVE/PROCEDURE REPORT OPHTHAMOLOGY LOG ID: [id number] SURGERY/PROCEDURE DATE: 06/25/2022 INCISION/PROCEDURE START TIME: 10:13 AM INCISION CLOSE/PROCEDURE END TIME: 11:27 AM SURGEON(S)/PROCEDURALIST(S) AND TEAM GUIDE(S): Surgeon(s) and Role: * Jonathon Eugene MD [...] Implant Name Type Inv. Item Serial No. Business Services Sales Representative Lot No. LRB No. Used Action Model No. LENS ACRYSOF ULTRASERT +14.5 DIOPTER ACRYLIC IOL 1 PIECE FOLDABLE UV BLUE - [id number] Intraocular Lens LENS ACRYSOF ULTRASERT +14.5 DIOPTER ACRYLIC IOL 1 PIECE FOLDABLE UV BLUE [id number] [employer] Right 1 Implanted [id number] Ocular Co-Morbidities: Yes Intra-operative Complications None I/primary surgeon/proceduralist performed the entire procedure. SIGNATURE: Jonathon Eugene MD PATIENT NAME: Allie Lynn DATE: June 25, 2022 TIME: 11:31 AM PAGER/CONTACT #: [phone] documented in this encounterA[facility] Miscellaneous Notes* Telephone Encounter - Janet Rivero RN - 06/22/2022 10:58 AM EDT Pended pre-operative drop prescriptions to Dr. Eugene for approval. Janet Rivero RN June 22, 2022 10:59 AM documented in this encounterA[facility] Miscellaneous Notes* Telephone Encounter - Meche Salvador - 06/22/2022 9:24 AM EDT Patient's pharmacy has no record of receiving the pre surgical prescriptions. Her surgery is 06-25-22, so she needs to start the drops tomorrow. Please send drops to [facility] Daylin Alberto. [place], [place] documented in this encounterA[facility]10-[facility] History of Present illness Narrative* Charlene Grossman MD - 06/20/2022 5:16 PM EDT Images from the original note were not included. Charlene Grossman MD Interventional Cardiology [address] [place] [id number] Chief Complaint Patient presents with: CARD [...] (RIGHT EYE) Right 10/26/2021 S [place] [id number] FAMILY HISTORY Problem Relation Age of Onset Heart Father Age 61 Heart Maternal Grandfather Cancer Paternal Grandmother Breast Cancer Maternal Aunt 55 ovarian cancer Heart Son DE Ovarian cancer Maternal Grandmother Glaucoma No Family [...] to correct any errors. documented in this encounterA[facility]10-[facility] Nurse Note* Alana Jiang MA - 06/20/2022 12:46 PM EDT Patient c/o bradycardia, palpitations, SOB, chest tenderness documented in this encounterAultman [facility]10-19-2022 Miscellaneous Notes* Telephone Encounter - Mauricio Bahena - 06/20/2022 9:32 AM EDT Attempted to contact patient to inform to arrive at [address] [place] [address] at 09:05 am for 06/25/22 surgery with Jonathon Eugene MD, to refrain from eating or drinking for 8 hours prior to arrival for surgery, and to begin the eyedrops in the right eye on 06/23/22. Left message on machine to callwith any questions or concerns. documented in this [facility]09-09-2022 Miscellaneous Notes* Telephone Encounter - Celeste Cardona [...] LPN * Telephone Encounter - Myra Deal [facility] - 05/11/2022 10:15 AM EDT Patient has [...] No need to notify patient. Myra [facility] documented in this encounterAultman [facility]09-[facility]-2022 Miscellaneous Notes* Telephone Encounter - Anshul Oliver Ma - 05/11/2022 10:29 AM EDT NOMI: 12/25/2021 Last refill: 09/18/2021 QTY: 60 Refills: 2 * Telephone Encounter - Myra Deal [facility] - 05/11/2022 10:19 AM EDT Patient is requesting medication, Gabapentin 100 mg take one daily at bedtime. She will need these for her upcoming eye procedure. This medication is not on the medication list. Please send [place] her local [place]. Any questions , please call patient [phone] documented in this encounterAultman [facility]09-01-2022 History of Present illness Narrative* Viviana Powell Ma - 05/03/2022 4:34 PM EDT EMG/NCV order faxed to [facility] scheduling. Referral done in computer. * Massimo Roberts MD - 05/03/2022 1:30 PM EDT Massimo Roberts MD Department of Orthopaedics Orthopaedics [address] [facility] [address] Dept: [phone] Dept May 03, 2022 CHIEF COMPLAINT: New [...] (RIGHT EYE) Right 10/26/2021 S [place] [id number] Family History: FAMILY HISTORY Problem Relation Age of Onset Heart Father Age 61 Heart Maternal Grandfather Cancer Paternal Grandmother Breast Cancer Maternal Aunt 55 ovarian cancer Heart Son DE Ovarian cancer Maternal Grandmother Glaucoma No Family [...] electronic medical record. Massimo Roberts [address] [facility] [address] Ifeoma Davis MD [address] [facility] [address] Massimo Roberts MD documented in this encounterAultman [facility]08-24-2022 Miscellaneous Notes* Telephone Encounter - Zainab Leyva - 04/25/2022 10:42 AM EDT INTRAOCULAR LENS ORDER ATTN: [facility] PATIENTS NAME: Allie Lynn SURGERY DATE: 06/25/2022 EYE: OD SURGEON: Jonathon Eugene MD LENS: [employer] STAFFING RECRUITER: Leonardo MODEL: [id number] POWER: + 14.5 ADDITIONAL NOTES: documented in this encounterAultman [facility]08-11-2022 History of Present illness Narrative* Jonathon [...] components. Jonathon Eugene MD documented in this encounterAultman [facility]08-02-2022 Instructions* Patient Instructions* Jonathon Eugene MD - 04/03/2022 12:34 PM EDT Images from the original note were not included. documented in this encounterAultman [facility]08-02-2022 History of Present illness Narrative* Jonathon [...] components. 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 I have seen and examined this patient. I have discussed the case and the management of this patient's care with the Resident/Fellow/Film And Video Graphics Designer, if applicable. I also have reviewed and agree with the assessment and plan as stated above and agree with all of its relevant components. Cynthia Ramos MD April 03, 2022 5:22 PM documented in this encounterAultman [facility]07-13-2022 History of Present illness Narrative* Jonathon [...] components. Jonathon Eugene MD documented in this encounterAultman [facility]07-01-2022 Miscellaneous Notes* Telephone Encounter - Janet [...] Dr. Eugene. Please advise. documented in this encounterAultman [facility]06-28-2022 History of Present illness Narrative* Jonathon [...] components. Jonathon Eugene MD documented in this encounterAultman [facility]06-11-2022 Miscellaneous Notes* Telephone Encounter - Aleksandra Min LPN - 02/10/2022 11:58 AM EDT Patient notified on mychart. * Telephone Encounter - Alise Dejesus APRN.CNP - 02/10/2022 11:20 AM EDT No growth for urine culture. If symptoms persist then follow up with PCP Please notify thank you documented in this encounterAultman [facility]06-10-2022 Miscellaneous Notes* Telephone Encounter - Mary Goodwin Pss - 02/09/2022 10:05 AM EDT Pharmacy verified in [facility] Patient has been identified by name [...] advise. Mary Goodwin Pss documented in this encounterAultman Orrville [facility]06-09-2022 Miscellaneous Notes* Telephone Encounter - Janet [...] is not covered by most insurance companies. [employer] offers pricing of over $200.00 for all Pharmacies. [employer] does NOT cover it. The fuel tank sealer and tester of [employer] recommends using an on-line Pharmacy, [facility]. They DO NOT submit to [...] that she can use? documented in this encounterAultman Orrville [facility]05-13-2022 Miscellaneous Notes* Telephone Encounter - Mary Tamez RN - 01/12/2022 10:46 AM EDT Patient last seen for annual exam on 12/04/21. Needs a new RX for Prempro. Out of refills. RX pending. Pending Prescriptions Disp Refills CONJ ESTROGEN-MEDROXYPROGESTERONE 0.45 MG-1.5 MG TABLET 84 tablet 2 Sig: Take 1 tablet by mouth once daily. WALTER: No Mary Tamez RN documented in this encounterAultman Orrville Hospital04-25-2022 History of Present illness Narrative* Ifeoma [...] (RIGHT EYE) Right 10/26/2021 S [place] [id number] FAMILY HISTORY Problem Relation Age of Onset Heart Father Age 61 Heart Maternal Grandfather Cancer Paternal Grandmother Breast Cancer Maternal Aunt 55 ovarian cancer Heart Son DE Ovarian cancer Maternal Grandmother Glaucoma No Family [...] IVCON Ifeoma Davis MD documented in this encounterAultman Orrville Hospital04-19-2022 History of Present illness Narrative* Cynthia [...] (H52.7) Refractive error Comment: Myopia, 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 I also have reviewed and agree with the assessment and plan as stated above and agree with all of its relevant components. Cynthia Ramos MD December 19, 2021 2:17 PM documented in this encounterAultman Orrville Hospital04-11-2022 Miscellaneous Notes* Telephone Encounter - Dara [...] order due to vertigo. documented in this encounterAultman Orrville [facility]04-04-2022 History of Present illness Narrative* Destiney [...] L3 SAB0 IAB0 Ectopic0 Multiple0 Live Births0 Improvement Intern History LMP: Ablation Age at Menarche: Age at First : Age at Menopause: Improvement Intern History Comments: Sexual Activity: Not Asked; Male [...] (RIGHT EYE) Right 10/26/2021 S [place] [id number] FAMILY HISTORY Problem Relation Age of Onset Heart Father Age 61 Heart Maternal Grandfather Cancer Paternal Grandmother Breast Cancer Maternal Aunt 55 ovarian cancer Heart Son DE Ovarian cancer Maternal Grandmother Glaucoma No Family [...] external genitalia normal, normal Bartholin's glands, urethra, [place]'s glands, no vulvar lesions, no cervical lesions, [...] year or sooner as needed Destiney Pendleton APRN.MOLECULAR SPECTROSCOPIST documented in this encounterAultman [facility]03-29-2022 History of Present illness Narrative* Cynthia [...] (H52.7) Refractive error Comment: 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 I also have reviewed and agree with the assessment and plan as stated above and agree with all of its relevant components. Cynthia Ramos MD December 03, 2021 3:53 PM documented in this encounterAultman Orrville HospitalEvaluation note* Diagnosis Follow-up exam- Primary Unspecified follow-up examination documented [facility] this encounter [facility]* Diagnosis Encounter for gynecological examination (general) (routine) without abnormal findings- Primary Encounter for screening mammogram for breast cancer documented [facility] this encounter [facility]* Diagnosis Follow-up exam- Primary Unspecified follow-up examination Photopsia Other visual distortions and entoptic phenomena 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 documented [facility] this encounter [facility]* Diagnosis 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 Vertigo Dizziness and giddiness Memory deficits Memory loss New daily persistent headache Chronic mixed headache syndrome Other headache syndromes documented in this encounter [facility]* Diagnosis 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 injury Post-traumatic headache, unspecified documented in this encounter [facility]* Diagnosis Photopsia- Primary Other visual [...] streaks of choroid [facility] Medication management Encounter for [...] of right eye [facility] Diagnosis Combined forms of age-related [...] and entoptic phenomena [facility]* Diagnosis Combined forms of age-related cataract of right eye Other and combined forms of senile cataract Photopsia Other visual distortions and entoptic phenomena [facility] Pseudophakia- Primary Lens replaced by other means [facility]* Diagnosis Acute cough- Primary documented [...] eye, severe stage [facility]* Diagnosis Trigger ring finger of [...] Trigger finger (acquired) documented in this encounter [facility]* Diagnosis Follow-up exam- Primary Unspecified follow-up examination documented [facility] this encounter [facility]* Diagnosis Follow-up exam- Primary Unspecified follow-up examination Vitreous prolapse of left eye Vitreous prolapse documented in this encounter [facility] noteNo assessment information availableWGalion Community Hospital Work Phone: Evaluation note* Diagnosis Secondary glaucoma, indeterminate stage, 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 Pseudophakia of both eyes Lens replaced by other means documented in this encounter [facility]* Diagnosis Gastroesophageal reflux disease, unspecified whether esophagitis present- Primary Change in bowel habits Other symptoms involving digestive system documented in this encounter [facility]* Diagnosis Legally blind- Primary Legal blindness, as defined in [place] documented in this encounter [facility]* Diagnosis Numbness and tingling in right hand- Primary Disturbance of skin sensation documented [facility] this encounter [facility]* Diagnosis Trigger finger, unspecified finger, unspecified laterality documented in this encounter [facility]* Diagnosis Abnormal mammogram Abnormal mammogram, unspecified documented [facility] this encounter [facility]* Diagnosis Pain in both hands documented in this encounter [facility]* Diagnosis Abnormal mammogram Abnormal mammogram, unspecified [facility] Diagnosis Encounter for screening mammogram for breast cancer documented in this encounter [facility]* Diagnosis Secondary glaucoma, indeterminate stage, 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 documented in this encounter [facility]* Diagnosis Encounter for screening mammogram for breast cancer documented in this encounter [facility]* Diagnosis Trigger finger, unspecified finger, unspecified laterality documented in this [facility] Diagnosis Bacterial sinusitis- Primary Unspecified sinusitis (chronic) documented in this [facility] Diagnosis Onset Date Resolution Status Injury of right rotator cuff acute [facility] Work Phone: Evaluation note* Diagnosis Encounter for gynecological examination (general) (routine) without abnormal findings- Primary Encounter for screening for human papillomavirus (HPV) Special screening examination for human papillomavirus (HPV) Pap smear for cervical cancer screening Screening for malignant neoplasm of the cervix Encounter for screening mammogram for breast cancer documented [facility] this [facility] Diagnosis 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 injury Post-traumatic headache, unspecified [facility] this [facility] Diagnosis Secondary glaucoma, indeterminate stage, 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 Pseudophakia of both eyes Lens replaced by other means Legally blind Legal blindness, as defined in [place] [facility] Diagnosis Hypertension Unspecified essential hypertension Mixed hyperlipidemia Medication management Encounter for long-term (current) use of other medications documented in this encounter [facility] note* Diagnosis Annual wellness visit- Primary [...] [place] Mixed hyperlipidemia [facility]* Diagnosis Allergic contact dermatitis due to plants, except food- Primary Contact dermatitis and other eczema due to plants (except food) documented [facility] this [facility] Diagnosis Establishing care with [...] Post-traumatic headache, unspecified documented in this encounter [facility] note* Diagnosis Establishing care with new [...] involving digestive system [facility] Diagnosis Legally blind- Primary Legal blindness, as defined in [place] 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 Trigger finger, unspecified finger, unspecified laterality Mixed hyperlipidemia Primary hypertension Unspecified essential hypertension Swelling of both hands Gastroesophageal reflux disease with esophagitis, unspecified whether hemorrhage documented in this encounter [facility] note* Diagnosis Establishing care with new [...] Other screening mammogram documented in this encounter [facility] note* Diagnosis Establishing care with new [...] anomaly of skin documented in this encounter [facility] note* Diagnosis Establishing care with new [...] unspecified whether hemorrhage [facility] Diagnosis Establishing care with [...] COVID-19 virus- Primary documented in this encounter [facility] note* Diagnosis Establishing care with new [...] apnea (adult) (pediatric) documented in this encounter [facility] note* Diagnosis Establishing care with new [...] anomaly of skin [facility] Diagnosis Establishing care with [...] to menopause- Primary [facility] Diagnosis Establishing care with [...] Other sleep disturbances [facility] Diagnosis Establishing care with [...] Insomnia, unspecified type [facility] Diagnosis Establishing care with [...] unspecified depression type documented in this encounter [facility] note* Diagnosis Establishing care with new [...] streaks of choroid documented in this encounter [facility] note* Diagnosis Establishing care with new [...] streaks of choroid documented in this encounter [facility] note* Diagnosis Establishing care with new [...] for breast cancer [facility] Diagnosis Establishing care with [...] anomaly of skin documented in this encounter [facility] note* Diagnosis Establishing care with new [...] site not specified documented in this encounter [facility] note* Diagnosis Establishing care with new [...] unspecified Other fatigue documented in this encounter [facility] note* Diagnosis Establishing care with new [...] apnea (adult) (pediatric) documented in this encounter [facility] note* Diagnosis Establishing care with new [...] Hypokalemia- Primary Hypopotassemia documented in this encounter [facility] note* Diagnosis Establishing care with new [...] unspecified type- Primary documented in this encounter [facility] note* Diagnosis Establishing care with new [...] apnea (adult) (pediatric) documented in this encounter [facility] note* Diagnosis Establishing care with new [...] deficiency Mixed hyperlipidemia documented in this encounter [facility] note* Diagnosis Establishing care with new [...] Legally blind Legal blindness, as defined in [facility] Sleep apnea, unspecified type documented in this encounter [facility] note* Diagnosis Establishing care with new [...] Unspecified essential hypertension documented in this encounter [facility] note* Diagnosis Establishing care with new [...] of left eye documented in this encounter [facility] note* Diagnosis Establishing care with new [...] unspecified single disease documented in this encounter [facility] note* Diagnosis Establishing care with new [...] unspecified single disease documented in this encounter [facility] note* Diagnosis Establishing care with new [...] deficiency Mixed hyperlipidemia [facility] in [facility] Diagnosis Establishing care with [...] Other specified complications [facility] Diagnosis Establishing care with [...] 126/82 11/18/2023 124/72 [facility] Diagnosis Establishing care with new [...] glaucoma surgery- Primary [facility] this [facility] Diagnosis Establishing care with [...] Insomnia, unspecified type documented in this encounter [facility] note* Diagnosis Establishing care with new [...] following other surgery documented in this encounter [facility] note* Diagnosis Establishing care with new [...] of unspecified site [facility] Diagnosis Establishing care with new [...] plants (except food) documented in this encounter [facility] note* Diagnosis Establishing care with new [...] indeterminate stage, bilateral [facility] Diagnosis Establishing care with [...] Benign paroxysmal positional vertigo of right ear DYASI (obstructive sleep apnea) Obstructive sleep apnea (adult) [...] specified erythematous condition documented in this encounter [facility] Discharge instructionsAdditional Instructions Follow-up with your primary care physician. Return back to ED if symptoms change or worsen.[facility] Work Phone: Reason for referral (narrative)* Diagnostic Procedure Only (Routine) - Pending Review Specialty Diagnoses / Procedures Referred By Shiraz johnson Referred To Contact [facility] IMAG[facility] Diagnoses Encounter for screening mammogram for breast cancer Procedures GENOVEVA SCREENING SCREENING MAMMOGRAPHY BI 2-VIEW BREAST INC Destiney Proctor APRN.CNP [address] [place] [address] [facility] [address] [place] [address] Referral ID Status Reason Start Date Expiration Date Visits Requested Visits Authorized [id number] Pending Review Auto-Generat ed Referral 12/04/2021 01/03/2023 1 1 [facility] for referral (narrative)* Outpatient Procedure (Routine) - Pending Review Specialty Diagnoses / Procedures Referred By Contac t Referred To Contact [facility] Diagnoses Pain in both hands Procedures EMG(NEURO/NI) NERVE CONDUCTION STUDIES 9-10 STUDIES Massimo Roberts MD [address] [place] [address] Neurological [place] [address] [place] [address] Referral ID Status Reason Start Date Expiration Date Visits Requested Visits Authorized [id number] Pending Review Auto-Generat ed Referral 05/03/2022 05/03/2023 1 1 [facility] for referral (narrative)* Outpatient Procedure (Routine) - Pending Review Specialty Diagnoses / Procedures Referred By Contac t Referred To Contact [facility] [place] Diagnoses PXE (pseudoxanthoma elasticum) Procedures ECHO ECHO TTHRC R-T 2D W/WOM-MODE COMPL SPEC&COLR D Ngoc, Charlene Johnson MD [address] [place] [address] [facility] V[facility] [place] [address] [place] [address] Referral ID Status Reason Start Date Expiration Date Visits Requested Visits Authorized [id number] Pending Review Auto-Generat ed Referral 2 06/20/2023 1 1 [facility] for referral (narrative)* Diagnostic Procedure Only (Routine) - Pending Review Specialty Diagnoses / Procedures Referred By Contac t Referred To Contact [facility] Diagnoses Abnormal mammogram Procedures GENOVEVA DIAGNOSTIC RT DIAGNOSTIC MAMMOGRAPHY COMPUTER-AIDED DETCJ Desitney Cortez, MURTAZA.MOLECULAR SPECTROSCOPIST [address] [place] [address] Br Imaging [address] [place] [address] Referral ID Status Reason Start Date Expiration Date Visits Requested Visits Authorized [id number] Pending Review Auto-Generat ed Referral 09/28/2022 10/28/2023 1 1 * Diagnostic Procedure Only (Routine) - Pending Review Specialty Diagnoses / Procedures Referred By Contac t Referred To Contact [facility] Diagnoses Abnormal mammogram Procedures US BREAST LTD RT US BREAST UNI REAL TIME WITH IMAGE LIMITED Destiney Pendleton APRN.CNP [address] [place] [address] Br Imaging [address] [place] [address] Referral ID Status Reason Start Date Expiration Date Visits Requested Visits Authorized [id number] Pending Review Auto-Generat ed Referral 09/28/2022 10/28/2023 1 1 [facility] for referral (narrative)* Diagnostic Procedure Only (Routine) - Closed Specialty Diagnoses / Procedures Referred By Contac t Referred To Contact XR IMAGING Diagnoses Pain in both hands Procedures XR HAND GENERAL 3V PA/LAT/OBL BILATERAL RADEX HAND MINIMUM 3 VIEWS Massimo Roberts MD [address] [place] [address] Xr Imaging Referral ID Status Reason Start Date Expiration Date V isits Requested Visits Authorized [id number] Closed Auto-Generate d Referral 10/01/2022 10/31/2023 1 1 [facility] for referral (narrative)* Outpatient Procedure (Routine) - Authorized Specialty Diagnoses / Procedures Referred By Contac t Referred To Contact [facility] Diagnoses Change in bowel habits Procedures COLONOSCOPY DIAGNOSTIC COLONOSCOPY FLX DX W/COLLJ SPEC WHEN PFRMD Cande Pozo PA-C [address] [facility] [place] [address] Digestive Disease [place] [address] [place] [address] Referral ID Status Reason Start Date Expiration Date Visits Requested Visits Authorized [id number] Authorized Auto-Generat ed Referral 04/30/2023 04/30/2024 1 1 * Outpatient Procedure (Routine) - Authorized Specialty Diagnoses / Procedures Referred By Shiraz johnson Referred To Contact [facility] Diagnoses Gastroesophageal reflux disease, unspecified whether esophagitis present Procedures EGD DIAGNOSTIC ESOPHAGOGASTRODUODENOSC OPY TRANSORAL DIAGNOSTIC Cande Pozo PA-C [address] [facility] [place] [address] [facility] [place] [address] [place] [address] Referral ID Status Reason Start Date Expiration Date Visits Requested Visits Authorized [id number] Authorized Auto-Generat ed Referral 04/30/2023 04/30/2024 1 1 [facility] for referral (narrative)* Outpatient Procedure (Routine) - Pending Review Specialty Diagnoses / Procedures Referred By Shiraz johnson Referred To Contact [facility] Diagnoses Numbness and tingling in right hand Procedures EMG(NEURO/NI) NERVE CONDUCTION STUDIES 9-10 STUDIES Massimo Roberts MD [address] [place] [address] [address] Referral ID Status Reason Start Date Expiration Date Visits Requested Visits Authorized [id number] Pending Review Auto-Generat ed Referral 04/25/2023 04/25/2024 1 1 [facility] for referral (narrative)* Diagnostic Procedure Only (Routine) - Closed Specialty Diagnoses / Procedures Referred By Shiraz johnson Referred To Contact [facility] Diagnoses Abnormal mammogram Procedures US BREAST LTD RT US BREAST UNI REAL TIME WITH IMAGE LIMITED Destiney Pendleton APRN.MOLECULAR SPECTROSCOPIST [address] [place] [address] Br Imaging [address] [place] [address] Referral ID Status Reason Start Date Expiration Date V isits Requested Visits Authorized [id number] Closed Auto-Generate d Referral 09/28/2022 10/28/2023 1 1 [facility] for referral (narrative)* Diagnostic Procedure Only (Routine) - Closed Specialty Diagnoses / Procedures Referred By Contac t Referred To Contact XR IMAGING Diagnoses Pain in both hands Procedures XR HAND GENERAL 3V PA/LAT/OBL BILATERAL RADEX HAND MINIMUM 3 VIEWS Massimo Roberts MD [address] [place] [address] [place] [address] Referral ID Status Reason Start Date Expiration Date V isits Requested Visits Authorized [id number] Closed Auto-Generate d Referral 10/01/2022 10/31/2023 1 1 [facility] for referral (narrative)* Diagnostic Procedure Only (Routine) - Closed Specialty Diagnoses / Procedures Referred By Contac t Referred To Contact [facility] Diagnoses Encounter for screening mammogram for breast cancer Procedures GENOVEVA SCREENING SCREENING MAMMOGRAPHY BI 2-VIEW BREAST INC [facility] [place] APRN.MOLECULAR SPECTROSCOPIST [address] [place] [address] Br Imaging [address] [place] [address] Referral ID Status Reason Start Date Expiration Date V isits Requested Visits Authorized [id number] Closed Auto-Generate d Referral 09/05/2022 09/01/2023 1 1 [facility] for referral (narrative)* Diagnostic Procedure Only (Routine) - Pending Review Specialty Diagnoses / Procedures Referred By Contac t Referred To Contact [facility] Diagnoses Encounter for gynecological examination (general) (routine) without abnormal findings Encounter for screening mammogram for breast cancer Procedures GENOVEVA SCREENING SCREENING MAMMOGRAPHY BI 2-VIEW BREAST INC CAD [place] APRN.MOLECULAR SPECTROSCOPIST [address] [place] [address] Br Imaging [address] [place] [address] Referral ID Status Reason Start Date Expiration Date Visits Requested Visits Authorized [id number] Pending Review Auto-Generat ed Referral 12/24/2023 01/22/2025 1 1 [facility] for referral (narrative)* Outpatient Procedure (Routine) - Closed Specialty Diagnoses / Procedures Referred By Contac t Referred To Contact [facility] [place] Diagnoses Change in bowel habits Procedures COLONOSCOPY DIAGNOSTIC COLONOSCOPY FLX DX W/COLLJ SPEC WHEN PFRMD Cande Pozo PA-C [address] [place] [address] [address] Referral ID Status Reason Start Date Expiration Date V isits Requested Visits Authorized [id number] Closed Auto-Generate d Referral 04/30/2023 04/30/2024 1 1 * Outpatient Procedure (Routine) - Closed Specialty Diagnoses / Procedures Referred By Shiraz johnson Referred To Contact [facility] [place] Diagnoses Gastroesophageal reflux disease, unspecified whether esophagitis present Procedures EGD DIAGNOSTIC ESOPHAGOGASTRODUODENOSC OPY TRANSORAL DIAGNOSTIC Cande Pozo PA-C [address] [place] [address] [address] Referral ID Status Reason Start Date Expiration Date V isits Requested Visits Authorized [id number] Closed Auto-Generate d Referral 04/30/2023 04/30/2024 1 1 [facility] for referral (narrative)* Diagnostic Procedure Only (Routine) - Authorized Specialty Diagnoses / Procedures Referred By Sihraz t Referred To Contact [facility] Diagnoses Encounter for screening mammogram for malignant neoplasm of breast Procedures GENOVEVA SCREENING W LILLY SCREENING DIGITAL BREAST TOMOSYNTHESIS BI SCREENING MAMMOGRAPHY BI 2-VIEW BREAST INC CAD Ifeoma Davis MD [address] [place] [address] Br Imaging [address] [place] [address] Referral ID Status Reason Start Date Expiration Date Visits Requested Visits Authorized [id number] Authorized Auto-Generat ed Referral 07/12/2025 1 1 [facility] for referral (narrative)* Outpatient Procedure (Routine) - Closed Specialty Diagnoses / Procedures Referred By Contac t Referred To Contact [facility] [place] Diagnoses PXE (pseudoxanthoma elasticum) Procedures US CAROTID ARTERIES [facility]ARY[facility] DUPLEX SCAN EXTRACRANIAL ART COMPL BI STUDY Ifeoma Davis MD [address] [place] [address] [facility] Vascular [address] [address] Referral ID Status Reason Start Date Expiration Date V isits Requested Visits Authorized [id number] Closed Auto-Generate d Referral 05/14/2024 05/14/2025 1 1 [facility] for referral (narrative)No reason for referral information [facility] Work Phone: Reason for visit Narrative* Diagnostic Procedure Only (Routine) - Closed Specialty Diagnoses / Procedures Referred By Contac t Referred To Contact XR IMAGING Diagnoses Pain Procedures XR HAND GENERAL 3V PA/LAT/OBL BILATERAL RADEX HAND MINIMUM 3 VIEWS Massimo Roberts MD [address] [place] [address] [place] [address] Referral ID Status Reason Start Date Expiration Date V isits Requested Visits Authorized [id number] Closed Auto-Generate d Referral 04/20/2022 09/01/2023 1 1 [facility] for visit Narrative* Diagnostic Procedure Only (Routine) - Closed Specialty Diagnoses / Procedures Referred By Contac t Referred To Contact [facility] Diagnoses Abnormal mammogram Procedures GENOVEVA DIAGNOSTIC RT DIAGNOSTIC MAMMOGRAPHY COMPUTER-AIDED DETCJ Destiney Cortez.MOLECULAR SPECTROSCOPIST [address] [place] [address] Br Imaging [address] [place] [address] Referral ID Status Reason Start Date Expiration Date V isits Requested Visits Authorized [id number] Closed Auto-Generate d Referral 09/28/2022 10/28/2023 1 1 [facility] for visit Narrative* Diagnostic Procedure Only (Routine) - Closed Specialty Diagnoses / Procedures Referred By Contac t Referred To Contact [facility] Diagnoses Encounter for screening mammogram for breast cancer Procedures GENOVEVA SCREENING SCREENING MAMMOGRAPHY BI 2-VIEW BREAST INC [facility]LE[facility]COP[facility] [address] [place] [address] Br Imaging [address] [place] [address] Referral ID Status Reason Start Date Expiration Date V isits Requested Visits Authorized [id number] Closed Auto-Generate d Referral 12/10/2022 01/09/2024 1 1 [facility] for visit Narrative* Outpatient Procedure (Routine) - Closed Specialty Diagnoses / Procedures Referred By Contac t Referred To Contact [facility] Diagnoses Change in bowel habits Procedures COLONOSCOPY DIAGNOSTIC COLONOSCOPY FLX DX W/COLLJ SPEC WHEN PFRMD Cande Pozo PA-C [address] [place] [address] [facility] [place] [address] [place] [address] Referral ID Status Reason Start Date Expiration Date V isits Requested Visits Authorized [id number] Closed Auto-Generate d Referral 04/30/2023 04/30/2024 1 1 [facility] for visit Narrative* Diagnostic Procedure Only (Routine) - Closed Specialty Diagnoses / Procedures Referred By Contac t Referred To Contact [facility] Diagnoses Encounter for gynecological examination (general) (routine) without abnormal findings Encounter for screening mammogram for breast cancer Procedures GENOVEVA SCREENING SCREENING MAMMOGRAPHY BI 2-VIEW BREAST INC [facility] [address] [place] [address] Phone: tel: fax: [facility] [address] [place] [address] Referral ID Status Reason Start Date Expiration Date V isits Requested Visits Authorized [id number] Closed Auto-Generate d Referral 12/24/2023 01/22/2025 1 1 [facility] Advance Directives Documents on File Type Date Recorded 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 Advance Directive(s) 10/26/2021 12:12 PM Advance Directive(s) 09/14/2021 11:54 AM Advance Directive(s) 06/22/2019 12:39 PM Advance Directive(s) 02/03/2018 1:55 PM Advance Directive(s) 01/30/2018 9:51 AM Documents on File Type Date Recorded 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 Yes May 27, 2025 6:56pm Advance Directives Yes November 24, 025 3:06pm Advance Directive Response Recorded Date/ Time Do you have a Healthcare Power of Children'S Nursery Assistant? Yes May 27, 2025 6:56pm Do you have a Healthcare Power of Children'S Nursery Assistant? Yes June 17, 2025 6:25pm Name of Medical Power of Children'S Nursery Assistant Melvin Nassar June 17, 2025 6:25pm Do you have a Healthcare Power of Children'S Nursery Assistant? No June 23, 2025 5:47pm Do you have a Healthcare Power of Children'S Nursery Assistant? No June 29, 2025 2:44am Advance Directives Yes November 24, 025 3:06pm Advance Directive Response Recorded Date/ Time Do you have a Healthcare Power of Children'S Nursery Assistant? Yes May 27, 2025 5:56pm Do you have a Healthcare Power of Children'S Nursery Assistant? Yes June 17, 2025 5:25pm Name of Medical Power of Children'S Nursery Assistant Melvin Nassar June 17, 2025 5:25pm Do you have a Healthcare Power of Children'S Nursery Assistant? No June 23, 2025 4:47pm Do you have a Healthcare Power of Children'S Nursery Assistant? No June 29, 2025 1:44am Do you have a Healthcare Power of Children'S Nursery Assistant? 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) Vertigo Memory deficits New daily persistent headache Procedures MRI BRAIN WO/W IVCON MRI BRAIN BRAIN STEM W/O W/CONTRAST MATERIAL Ifeoma Davis MD [address] [place] [address] Mr Imaging Referral ID Status Reason Start Date Expiration Date Visits Requested Visits Authorized [id number] Authorized Auto-Generat ed Referral 12/25/2021 01/24/2023 1 1 Specialty Diagnoses / Procedures Referred By Contac t Referred To Contact [facility] Diagnoses Blindness right eye category 3, blindness left eye category 4 Procedures CONSULT TO SIZE CUTTER OCCUPATIONAL THERAPY [facility] HIGH COMPLEX 60 MINS Wolf Mason, OD [address] [facility] [address] [place] [address] [facility] [address] [address] [address] Referral ID Status Reason Start Date Expiration Date Visits Requested Visits Authorized [id number] Pending Review Auto-Generat ed Referral 2 08/16/2023 [...] DIRECT PT CONTACT EACH 15 [address] Ot [address] [address] [facility] [place] [address] [place] [address] Referral ID Status Reason Start Date Expiration Date Visits Requested Visits Authorized [id number] Pending Review PCP Requested Referral Auto-Generate d Referral 09/19/2022 12/18/2022 1 1 Specialty Diagnoses / Procedures Referred By Contac t Referred To Contact Gastroenterology Diagnoses Gastroesophageal reflux disease with esophagitis, unspecified whether hemorrhage Procedures CONSULT TO GASTROENTEROLOGY OFFICE/OUTPATIENT [facility] MDM 60-74 MINUTES Ifeoma Davis MD [address] [place] [address] Referral ID Status Reason Start Date Expiration Date Visits Requested Visits Authorized [id number] Pending Review PCP Requested Referral 10/16/2022 10/16/2023 1 1 Specialty Diagnoses / Procedures Referred By Contac t Referred To Contact [facility] Diagnoses Gastroesophageal reflux disease with esophagitis, unspecified whether hemorrhage Procedures ECG COMPLETE ECG ROUTINE ECG W/LEAST 12 LDS W/I&R Ifeoma Davis MD [address] [place] [address] [facility] [address] [address] Referral ID Status Reason Start Date Expiration Date Visits Requested Visits Authorized [id number] Pending Review Auto-Generat ed Referral 10/16/2022 10/16/2023 1 1 Specialty Diagnoses / Procedures Referred By Contac t Referred To Contact [facility] Diagnoses Trigger ring finger of right hand Trigger middle finger of left hand Procedures CONSULT TO SIZE CUTTER OCCUPATIONAL THERAPY EVAL HIGH COMPLEX 60 MINS Taina Fan PA-C [address] [place] [address] [facility] [address] [address] Referral ID Status Reason Start Date Expiration Date Visits Requested Visits Authorized [id number] Pending Review Auto-Generat ed Referral 11/19/2022 11/19/2023 1 1 Specialty Diagnoses / Procedures Referred By Contac t Referred To Contact Destiney Pendleton APRN.MOLECULAR SPECTROSCOPIST [address] [place] [address] Referral ID Status Reason Start Date Expiration Date Visits Re quested Visits Authorized [id number] Closed 1 1 Specialty Diagnoses / Procedures Referred By Contac t Referred To Contact Diagnoses 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 injury Calli Duvall, ROCK CRUSHER.MOLECULAR SPECTROSCOPIST [address] [place] [address] Referral ID Status Reason Start Date Expiration Date Visits Re quested Visits Authorized [id number] Closed 1 1 Specialty Diagnoses / Procedures Referred By Contac t Referred To Contact Diagnoses DAYSI (obstructive sleep apnea) 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) Procedures CONSULT TO SLEEP MEDICINE - ADULT OFFICE/OUTPATIENT [facility] 60 MINUTES Ifeoma Davis MD [address] [place] [address] Referral ID Status Reason Start Date Expiration Date Visits Requested Visits Authorized [id number] Authorized PCP Requested Referral 07/28/2025 1 1 Specialty Diagnoses / Procedures Referred By Contac t Referred To Contact Diagnoses Vasomotor symptoms due to menopause Destiney Pendleton, ROCK CRUSHER.MOLECULAR SPECTROSCOPIST [address] [place] [address] Referral ID Status Reason Start Date Expiration Date V isits Requested Visits Authorized [id number] Authorized 06/16/2024 09/15/2025 1 1 Medications Administered [...] Given 06/25/2022 11:25 AM EDT 0.1 mL hategqgh-vuvymjwqh-llvedlbtb sone 3.5 mg/g-10,000 unit/g-0.1 % (POLYDEX) X [...] or prosecute any alcohol or drug abuse patient.[facility] the event this information is protected by the Federal Confidentiality of Alcohol and Drug Abuse Patient Records regulations: The Federal rules restrict any use of the information to criminally investigate or prosecute any alcohol or drug abuse patient.[facility]In the event this information is protected by the Federal Confidentiality of Alcohol and Drug Abuse Patient Records regulations: The Federal rules restrict any use of the information to criminally investigate or prosecute any alcohol or drug abuse patient.[facility]In the event this information is protected by the Federal Confidentiality of Alcohol and Drug Abuse Patient Records regulations: The Federal rules restrict any use of the information to criminally investigate or prosecute any alcohol or drug abuse patient.[facility]In the event this information is protected by the Federal Confidentiality of Alcohol and Drug Abuse Patient Records regulations: The Federal rules restrict any use of the information to criminally investigate or prosecute any alcohol or drug abuse patient.[facility]In the event this information is protected by the Federal Confidentiality of Alcohol and Drug Abuse Patient Records regulations: The Federal rules restrict any use of the information to criminally investigate or prosecute any alcohol or drug abuse patient.[facility]In the event this information is protected by the Federal Confidentiality of Alcohol and Drug Abuse Patient Records regulations: The Federal rules restrict any use of the information to criminally investigate or prosecute any alcohol or drug abuse patient.[facility] HospitalIn the event this information is protected by the Federal Confidentiality of Alcohol and Drug Abuse Patient Records regulations: The Federal rules restrict any use of the information to criminally investigate or prosecute any alcohol or drug abuse patient.[facility] HospitalIn the event this information is protected by the Federal Confidentiality of Alcohol and Drug Abuse Patient Records regulations: The Federal rules restrict any use of the information to criminally investigate or prosecute any alcohol or drug abuse patient.[facility] HospitalIn the event this information is protected by the Federal Confidentiality of Alcohol and Drug Abuse Patient Records regulations: The Federal rules restrict any use of the information to criminally investigate or prosecute any alcohol or drug abuse patient.[facility] HospitalIn the event this information is protected by the Federal Confidentiality of Alcohol and Drug Abuse Patient Records regulations: The Federal rules restrict any use of the information to criminally investigate or prosecute any alcohol or drug abuse patient.[facility] HospitalIn the event this information is protected by the Federal Confidentiality of Alcohol and Drug Abuse Patient Records regulations: The Federal rules restrict any use of the information to criminally investigate or prosecute any alcohol or drug abuse patient.[facility] HospitalIn the event this information is protected by the Federal Confidentiality of Alcohol and Drug Abuse Patient Records regulations: The Federal rules restrict any use of the information to criminally investigate or prosecute any alcohol or drug abuse patient.[facility] HospitalIn the event this information is protected by the Federal Confidentiality of Alcohol and Drug Abuse Patient Records regulations: The Federal rules restrict any use of the information to criminally investigate or prosecute any alcohol or drug abuse patient.[facility] HospitalIn the event this information is protected by the Federal Confidentiality of Alcohol and Drug Abuse Patient Records regulations: The Federal rules restrict any use of the information to criminally investigate or prosecute any alcohol or drug abuse patient.[facility] HospitalIn the event this information is protected by the Federal Confidentiality of Alcohol and Drug Abuse Patient Records regulations: The Federal rules restrict any use of the information to criminally investigate or prosecute any alcohol or drug abuse patient.[facility] HospitalIn the event this information is protected by the Federal Confidentiality of Alcohol and Drug Abuse Patient Records regulations: The Federal rules restrict any use of the information to criminally investigate or prosecute any alcohol or drug abuse patient.[facility] HospitalIn the event this information is protected by the Federal Confidentiality of Alcohol and Drug Abuse Patient Records regulations: The Federal rules restrict any use of the information to criminally investigate or prosecute any alcohol or drug abuse patient.[facility] HospitalIn the event this information is protected by the Federal Confidentiality of Alcohol and Drug Abuse Patient Records regulations: The Federal rules restrict any use of the information to criminally investigate or prosecute any alcohol or drug abuse patient.[facility] HospitalIn the event this information is protected by the Federal Confidentiality of Alcohol and Drug Abuse Patient Records regulations: The Federal rules restrict any use of the information to criminally investigate or prosecute any alcohol or drug abuse patient.[facility] HospitalIn the event this information is protected by the Federal Confidentiality of Alcohol and Drug Abuse Patient Records regulations: The Federal rules restrict any use of the information to criminally investigate or prosecute any alcohol or drug abuse patient.[facility] HospitalIn the event this information is protected by the Federal Confidentiality of Alcohol and Drug Abuse Patient Records regulations: The Federal rules restrict any use of the information to criminally investigate or prosecute any alcohol or drug abuse patient.[facility] HospitalIn the event this information is protected by the Federal Confidentiality of Alcohol and Drug Abuse Patient Records regulations: The Federal rules restrict any use of the information to criminally investigate or prosecute any alcohol or drug abuse patient.[facility] HospitalIn the event this information is protected by the Federal Confidentiality of Alcohol and Drug Abuse Patient Records regulations: The Federal rules restrict any use of the information to criminally investigate or prosecute any alcohol or drug abuse patient.[facility] HospitalIn the event this information is protected by the Federal Confidentiality of Alcohol and Drug Abuse Patient Records regulations: The Federal rules restrict any use of the information to criminally investigate or prosecute any alcohol or drug abuse patient.[facility] HospitalIn the event this information is protected by the Federal Confidentiality of Alcohol and Drug Abuse Patient Records regulations: The Federal rules restrict any use of the information to criminally investigate or prosecute any alcohol or drug abuse patient.[facility] HospitalIn the event this information is protected by the Federal Confidentiality of Alcohol and Drug Abuse Patient Records regulations: The Federal rules restrict any use of the information to criminally investigate or prosecute any alcohol or drug abuse patient.[facility] HospitalIn the event this information is protected by the Federal Confidentiality of Alcohol and Drug Abuse Patient Records regulations: The Federal rules restrict any use of the information to criminally investigate or prosecute any alcohol or drug abuse patient.[facility] HospitalIn the event this information is protected by the Federal Confidentiality of Alcohol and Drug Abuse Patient Records regulations: The Federal rules restrict any use of the information to criminally investigate or prosecute any alcohol or drug abuse patient.[facility] HospitalIn the event this information is protected by the Federal Confidentiality of Alcohol and Drug Abuse Patient Records regulations: The Federal rules restrict any use of the information to criminally investigate or prosecute any alcohol or drug abuse patient.[facility] HospitalIn the event this information is protected by the Federal Confidentiality of Alcohol and Drug Abuse Patient Records regulations: The Federal rules restrict any use of the information to criminally investigate or prosecute any alcohol or drug abuse patient.[facility] HospitalIn the event this information is protected by the Federal Confidentiality of Alcohol and Drug Abuse Patient Records regulations: The Federal rules restrict any use of the information to criminally investigate or prosecute any alcohol or drug abuse patient.[facility] HospitalIn the event this information is protected by the Federal Confidentiality of Alcohol and Drug Abuse Patient Records regulations: The Federal rules restrict any use of the information to criminally investigate or prosecute any alcohol or drug abuse patient.[facility] HospitalIn the event this information is protected by the Federal Confidentiality of Alcohol and Drug Abuse Patient Records regulations: The Federal rules restrict any use of the information to criminally investigate or prosecute any alcohol or drug abuse patient.[facility] HospitalIn the event this information is protected by the Federal Confidentiality of Alcohol and Drug Abuse Patient Records regulations: The Federal rules restrict any use of the information to criminally investigate or prosecute any alcohol or drug abuse patient.[facility] HospitalIn the event this information is protected by the Federal Confidentiality of Alcohol and Drug Abuse Patient Records regulations: The Federal rules restrict any use of the information to criminally investigate or prosecute any alcohol or drug abuse patient.[facility] HospitalIn the event this information is protected by the Federal Confidentiality of Alcohol and Drug Abuse Patient Records regulations: The Federal rules restrict any use of the information to criminally investigate or prosecute any alcohol or drug abuse patient.[facility] HospitalIn the event this information is protected by the Federal Confidentiality of Alcohol and Drug Abuse Patient Records regulations: The Federal rules restrict any use of the information to criminally investigate or prosecute any alcohol or drug abuse patient.[facility] HospitalIn the event this information is protected by the Federal Confidentiality of Alcohol and Drug Abuse Patient Records regulations: The Federal rules restrict any use of the information to criminally investigate or prosecute any alcohol or drug abuse patient.[facility] HospitalIn the event this information is protected by the Federal Confidentiality of Alcohol and Drug Abuse Patient Records regulations: The Federal rules restrict any use of the information to criminally investigate or prosecute any alcohol or drug abuse patient.[facility] HospitalIn the event this information is protected by the Federal Confidentiality of Alcohol and Drug Abuse Patient Records regulations: The Federal rules restrict any use of the information to criminally investigate or prosecute any alcohol or drug abuse patient.[facility] HospitalIn the event this information is protected by the Federal Confidentiality of Alcohol and Drug Abuse Patient Records regulations: The Federal rules restrict any use of the information to criminally investigate or prosecute any alcohol or drug abuse patient.[facility] HospitalIn the event this information is protected by the Federal Confidentiality of Alcohol and Drug Abuse Patient Records regulations: The Federal rules restrict any use of the information to criminally investigate or prosecute any alcohol or drug abuse patient.[facility] HospitalIn the event this information is protected by the Federal Confidentiality of Alcohol and Drug Abuse Patient Records regulations: The Federal rules restrict any use of the information to criminally investigate or prosecute any alcohol or drug abuse patient.[facility] HospitalIn the event this information is protected by the Federal Confidentiality of Alcohol and Drug Abuse Patient Records regulations: The Federal rules restrict any use of the information to criminally investigate or prosecute any alcohol or drug abuse patient.[facility] HospitalIn the event this information is protected by the Federal Confidentiality of Alcohol and Drug Abuse Patient Records regulations: The Federal rules restrict any use of the information to criminally investigate or prosecute any alcohol or drug abuse patient.[facility] the event this information is protected by the Federal Confidentiality of Alcohol and Drug Abuse Patient Records regulations: The Federal rules restrict any use of the information to criminally investigate or prosecute any alcohol or drug abuse patient.[facility] HospitalIn the event this information is protected by the Federal Confidentiality of Alcohol and Drug Abuse Patient Records regulations: The Federal rules restrict any use of the information to criminally investigate or prosecute any alcohol or drug abuse patient.[facility] HospitalIn the event this information is protected [...] or prosecute any alcohol or drug abuse patient.[facility] HospitalIn the event this information is protected by the Federal Confidentiality of Alcohol and Drug Abuse Patient Records regulations: The Federal rules restrict any use of the information to criminally investigate or prosecute any alcohol or drug abuse patient.[facility] HospitalIn the event this information is protected by the Federal Confidentiality of Alcohol and Drug Abuse Patient Records regulations: The Federal rules restrict any use of the information to criminally investigate or prosecute any alcohol or drug abuse patient.[facility] HospitalIn the event this information is protected by the Federal Confidentiality of Alcohol and Drug Abuse Patient Records regulations: The Federal rules restrict any use of the information to criminally investigate or prosecute any alcohol or drug abuse patient.[facility] HospitalIn the event this information is protected by the Federal Confidentiality of Alcohol and Drug Abuse Patient Records regulations: The Federal rules restrict any use of the information to criminally investigate or prosecute any alcohol or drug abuse patient.[facility] HospitalIn the event this information is protected by the Federal Confidentiality of Alcohol and Drug Abuse Patient Records regulations: The Federal rules restrict any use of the information to criminally investigate or prosecute any alcohol or drug abuse patient.[facility] HospitalIn the event this information is protected by the Federal Confidentiality of Alcohol and Drug Abuse Patient Records regulations: The Federal rules restrict any use of the information to criminally investigate or prosecute any alcohol or drug abuse patient.[facility] HospitalIn the event this information is protected by the Federal Confidentiality of Alcohol and Drug Abuse Patient Records regulations: The Federal rules restrict any use of the information to criminally investigate or prosecute any alcohol or drug abuse patient.[facility] HospitalIn the event this information is protected by the Federal Confidentiality of Alcohol and Drug Abuse Patient Records regulations: The Federal rules restrict any use of the information to criminally investigate or prosecute any alcohol or drug abuse patient.[facility] HospitalIn the event this information is protected by the Federal Confidentiality of Alcohol and Drug Abuse Patient Records regulations: The Federal rules restrict any use of the information to criminally investigate or prosecute any alcohol or drug abuse patient.[facility] HospitalIn the event this information is protected by the Federal Confidentiality of Alcohol and Drug Abuse Patient Records regulations: The Federal rules restrict any use of the information to criminally investigate or prosecute any alcohol or drug abuse patient.[facility] HospitalIn the event this information is protected by the Federal Confidentiality of Alcohol and Drug Abuse Patient Records regulations: The Federal rules restrict any use of the information to criminally investigate or prosecute any alcohol or drug abuse patient.[facility] HospitalIn the event this information is protected by the Federal Confidentiality of Alcohol and Drug Abuse Patient Records regulations: The Federal rules restrict any use of the information to criminally investigate or prosecute any alcohol or drug abuse patient.[facility] HospitalIn the event this information is protected by the Federal Confidentiality of Alcohol and Drug Abuse Patient Records regulations: The Federal rules restrict any use of the information to criminally investigate or prosecute any alcohol or drug abuse patient.[facility] HospitalIn the event this information is protected by the Federal Confidentiality of Alcohol and Drug Abuse Patient Records regulations: The Federal rules restrict any use of the information to criminally investigate or prosecute any alcohol or drug abuse patient.[facility] HospitalIn the event this information is protected by the Federal Confidentiality of Alcohol and Drug Abuse Patient Records regulations: The Federal rules restrict any use of the information to criminally investigate or prosecute any alcohol or drug abuse patient.[facility]In the event this information is protected by the Federal Confidentiality of Alcohol and Drug Abuse Patient Records regulations: The Federal rules restrict any use of the information to criminally investigate or prosecute any alcohol or drug abuse patient.[facility] HospitalIn the event this information is protected by the Federal Confidentiality of Alcohol and Drug Abuse Patient Records regulations: The Federal rules restrict any use of the information to criminally investigate or prosecute any alcohol or drug abuse patient.[facility] HospitalIn the event this information is protected by the Federal Confidentiality of Alcohol and Drug Abuse Patient Records regulations: The Federal rules restrict any use of the information to criminally investigate or prosecute any alcohol or drug abuse patient.[facility] HospitalIn the event this information is protected by the Federal Confidentiality of Alcohol and Drug Abuse Patient Records regulations: The Federal rules restrict any use of the information to criminally investigate or prosecute any alcohol or drug abuse patient.[facility] HospitalIn the event this information is protected by the Federal Confidentiality of Alcohol and Drug Abuse Patient Records regulations: The Federal rules restrict any use of the information to criminally investigate or prosecute any alcohol or drug abuse patient.[facility] HospitalIn the event this information is protected by the Federal Confidentiality of Alcohol and Drug Abuse Patient Records regulations: The Federal rules restrict any use of the information to criminally investigate or prosecute any alcohol or drug abuse patient.[facility] HospitalIn the event this information is protected by the Federal Confidentiality of Alcohol and Drug Abuse Patient Records regulations: The Federal rules restrict any use of the information to criminally investigate or prosecute any alcohol or drug abuse patient.[facility] HospitalIn the event this information is protected by the Federal Confidentiality of Alcohol and Drug Abuse Patient Records regulations: The Federal rules restrict any use of the information to criminally investigate or prosecute any alcohol or drug abuse patient.[facility] HospitalIn the event this information is protected by the Federal Confidentiality of Alcohol and Drug Abuse Patient Records regulations: The Federal rules restrict any use of the information to criminally investigate or prosecute any alcohol or drug abuse patient.[facility] HospitalIn the event this information is protected by the Federal Confidentiality of Alcohol and Drug Abuse Patient Records regulations: The Federal rules restrict any use of the information to criminally investigate or prosecute any alcohol or drug abuse patient.[facility]In the event this information is protected by the Federal Confidentiality of Alcohol and Drug Abuse Patient Records regulations: The Federal rules restrict any use of the information to criminally investigate or prosecute any alcohol or drug abuse patient.[facility]In the event this information is protected by the Federal Confidentiality of Alcohol and Drug Abuse Patient Records regulations: The Federal rules restrict any use of the information to criminally investigate or prosecute any alcohol or drug abuse patient.[facility]In the event this information is protected by the Federal Confidentiality of Alcohol and Drug Abuse Patient Records regulations: The Federal rules restrict any use of the information to criminally investigate or prosecute any alcohol or drug abuse patient.[facility]In the event this information is protected by the Federal Confidentiality of Alcohol and Drug Abuse Patient Records regulations: The Federal rules restrict any use of the information to criminally investigate or prosecute any alcohol or drug abuse patient.[facility]In the event this information is protected by the Federal Confidentiality of Alcohol and Drug Abuse Patient Records regulations: The Federal rules restrict any use of the information to criminally investigate or prosecute any alcohol or drug abuse patient.[facility] HospitalIn the event this information is protected by the Federal Confidentiality of Alcohol and Drug Abuse Patient Records regulations: The Federal rules restrict any use of the information to criminally investigate or prosecute any alcohol or drug abuse patient.[facility] HospitalIn the event this information is protected by the Federal Confidentiality of Alcohol and Drug Abuse Patient Records regulations: The Federal rules restrict any use of the information to criminally investigate or prosecute any alcohol or drug abuse patient.[facility] HospitalIn the event this information is protected by the Federal Confidentiality of Alcohol and Drug Abuse Patient Records regulations: The Federal rules restrict any use of the information to criminally investigate or prosecute any alcohol or drug abuse patient.[facility] HospitalIn the event this information is protected by the Federal Confidentiality of Alcohol and Drug Abuse Patient Records regulations: The Federal rules restrict any use of the information to criminally investigate or prosecute any alcohol or drug abuse patient.[facility] HospitalIn the event this information is protected by the Federal Confidentiality of Alcohol and Drug Abuse Patient Records regulations: The Federal rules restrict any use of the information to criminally investigate or prosecute any alcohol or drug abuse patient.[facility] HospitalIn the event this information is protected by the Federal Confidentiality of Alcohol and Drug Abuse Patient Records regulations: The Federal rules restrict any use of the information to criminally investigate or prosecute any alcohol or drug abuse patient.[facility] HospitalIn the event this information is protected by the Federal Confidentiality of Alcohol and Drug Abuse Patient Records regulations: The Federal rules restrict any use of the information to criminally investigate or prosecute any alcohol or drug abuse patient.[facility] HospitalIn the event this information is protected by the Federal Confidentiality of Alcohol and Drug Abuse Patient Records regulations: The Federal rules restrict any use of the information to criminally investigate or prosecute any alcohol or drug abuse patient.[facility] HospitalIn the event this information is protected by the Federal Confidentiality of Alcohol and Drug Abuse Patient Records regulations: The Federal rules restrict any use of the information to criminally investigate or prosecute any alcohol or drug abuse patient.[facility] HospitalIn the event this information is protected by the Federal Confidentiality of Alcohol and Drug Abuse Patient Records regulations: The Federal rules restrict any use of the information to criminally investigate or prosecute any alcohol or drug abuse patient.[facility] HospitalIn the event this information is protected by the Federal Confidentiality of Alcohol and Drug Abuse Patient Records regulations: The Federal rules restrict any use of the information to criminally investigate or prosecute any alcohol or drug abuse patient.[facility] HospitalIn the event this information is protected by the Federal Confidentiality of Alcohol and Drug Abuse Patient Records regulations: The Federal rules restrict any use of the information to criminally investigate or prosecute any alcohol or drug abuse patient.[facility] HospitalIn the event this information is protected by the Federal Confidentiality of Alcohol and Drug Abuse Patient Records regulations: The Federal rules restrict any use of the information to criminally investigate or prosecute any alcohol or drug abuse patient.[facility] HospitalIn the event this information is protected by the Federal Confidentiality of Alcohol and Drug Abuse Patient Records regulations: The Federal rules restrict any use of the information to criminally investigate or prosecute any alcohol or drug abuse patient.[facility] HospitalIn the event this information is protected by the Federal Confidentiality of Alcohol and Drug Abuse Patient Records regulations: The Federal rules restrict any use of the information to criminally investigate or prosecute any alcohol or drug abuse patient.[facility] HospitalIn the event this information is protected by the Federal Confidentiality of Alcohol and Drug Abuse Patient Records regulations: The Federal rules restrict any use of the information to criminally investigate or prosecute any alcohol or drug abuse patient.[facility] the event this information is protected by the Federal Confidentiality of Alcohol and Drug Abuse Patient Records regulations: The Federal rules restrict any use of the information to criminally investigate or prosecute any alcohol or drug abuse patient.[facility] HospitalIn the event this information is protected by the Federal Confidentiality of Alcohol and Drug Abuse Patient Records regulations: The Federal rules restrict any use of the information to criminally investigate or prosecute any alcohol or drug abuse patient.[facility] HospitalIn the event this information is protected [...] or prosecute any alcohol or drug abuse patient.[facility] HospitalIn the event this information is protected by the Federal Confidentiality of Alcohol and Drug Abuse Patient Records regulations: The Federal rules restrict any use of the information to criminally investigate or prosecute any alcohol or drug abuse patient.[facility] HospitalIn the event this information is protected by the Federal Confidentiality of Alcohol and Drug Abuse Patient Records regulations: The Federal rules restrict any use of the information to criminally investigate or prosecute any alcohol or drug abuse patient.[facility] HospitalIn the event this information is protected by the Federal Confidentiality of Alcohol and Drug Abuse Patient Records regulations: The Federal rules restrict any use of the information to criminally investigate or prosecute any alcohol or drug abuse patient.[facility] HospitalIn the event this information is protected by the Federal Confidentiality of Alcohol and Drug Abuse Patient Records regulations: The Federal rules restrict any use of the information to criminally investigate or prosecute any alcohol or drug abuse patient.[facility] HospitalIn the event this information is protected by the Federal Confidentiality of Alcohol and Drug Abuse Patient Records regulations: The Federal rules restrict any use of the information to criminally investigate or prosecute any alcohol or drug abuse patient.[facility] HospitalIn the event this information is protected by the Federal Confidentiality of Alcohol and Drug Abuse Patient Records regulations: The Federal rules restrict any use of the information to criminally investigate or prosecute any alcohol or drug abuse patient.[facility] HospitalIn the event this information is protected by the Federal Confidentiality of Alcohol and Drug Abuse Patient Records regulations: The Federal rules restrict any use of the information to criminally investigate or prosecute any alcohol or drug abuse patient.[facility] HospitalIn the event this information is protected by the Federal Confidentiality of Alcohol and Drug Abuse Patient Records regulations: The Federal rules restrict any use of the information to criminally investigate or prosecute any alcohol or drug abuse patient.[facility] HospitalIn the event this information is protected by the Federal Confidentiality of Alcohol and Drug Abuse Patient Records regulations: The Federal rules restrict any use of the information to criminally investigate or prosecute any alcohol or drug abuse patient.[facility]In the event this information is protected by the Federal Confidentiality of Alcohol and Drug Abuse Patient Records regulations: The Federal rules restrict any use of the information to criminally investigate or prosecute any alcohol or drug abuse patient.[facility] HospitalIn the event this information is protected by the Federal Confidentiality of Alcohol and Drug Abuse Patient Records regulations: The Federal rules restrict any use of the information to criminally investigate or prosecute any alcohol or drug abuse patient.[facility]In the event this information is protected by the Federal Confidentiality of Alcohol and Drug Abuse Patient Records regulations: The Federal rules restrict any use of the information to criminally investigate or prosecute any alcohol or drug abuse patient.[facility] HospitalIn the event this information is protected by the Federal Confidentiality of Alcohol and Drug Abuse Patient Records regulations: The Federal rules restrict any use of the information to criminally investigate or prosecute any alcohol or drug abuse patient.[facility] HospitalIn the event this information is protected by the Federal Confidentiality of Alcohol and Drug Abuse Patient Records regulations: The Federal rules restrict any use of the information to criminally investigate or prosecute any alcohol or drug abuse patient.[facility] HospitalIn the event this information is protected by the Federal Confidentiality of Alcohol and Drug Abuse Patient Records regulations: The Federal rules restrict any use of the information to criminally investigate or prosecute any alcohol or drug abuse patient.[facility] HospitalIn the event this information is protected by the Federal Confidentiality of Alcohol and Drug Abuse Patient Records regulations: The Federal rules restrict any use of the information to criminally investigate or prosecute any alcohol or drug abuse patient.[facility] HospitalIn the event this information is protected by the Federal Confidentiality of Alcohol and Drug Abuse Patient Records regulations: The Federal rules restrict any use of the information to criminally investigate or prosecute any alcohol or drug abuse patient.[facility] HospitalIn the event this information is protected by the Federal Confidentiality of Alcohol and Drug Abuse Patient Records regulations: The Federal rules restrict any use of the information to criminally investigate or prosecute any alcohol or drug abuse patient.[facility]In the event this information is protected by the Federal Confidentiality of Alcohol and Drug Abuse Patient Records regulations: The Federal rules restrict any use of the information to criminally investigate or prosecute any alcohol or drug abuse patient.[facility] HospitalIn the event this information is protected by the Federal Confidentiality of Alcohol and Drug Abuse Patient Records regulations: The Federal rules restrict any use of the information to criminally investigate or prosecute any alcohol or drug abuse patient.[facility]In the event this information is protected by the Federal Confidentiality of Alcohol and Drug Abuse Patient Records regulations: The Federal rules restrict any use of the information to criminally investigate or prosecute any alcohol or drug abuse patient.[facility]In the event this information is protected by the Federal Confidentiality of Alcohol and Drug Abuse Patient Records regulations: The Federal rules restrict any use of the information to criminally investigate or prosecute any alcohol or drug abuse patient.[facility]In the event this information is protected by the Federal Confidentiality of Alcohol and Drug Abuse Patient Records regulations: The Federal rules restrict any use of the information to criminally investigate or prosecute any alcohol or drug abuse patient.[facility] HospitalIn the event this information is protected by the Federal Confidentiality of Alcohol and Drug Abuse Patient Records regulations: The Federal rules restrict any use of the information to criminally investigate or prosecute any alcohol or drug abuse patient.[facility]In the event this information is protected by the Federal Confidentiality of Alcohol and Drug Abuse Patient Records regulations: The Federal rules restrict any use of the information to criminally investigate or prosecute any alcohol or drug abuse patient.[facility]In the event this information is protected by the Federal Confidentiality of Alcohol and Drug Abuse Patient Records regulations: The Federal rules restrict any use of the information to criminally investigate or prosecute any alcohol or drug abuse patient.[facility]In the event this information is protected by the Federal Confidentiality of Alcohol and Drug Abuse Patient Records regulations: The Federal rules restrict any use of the information to criminally investigate or prosecute any alcohol or drug abuse patient.[facility] HospitalIn the event this information is protected by the Federal Confidentiality of Alcohol and Drug Abuse Patient Records regulations: The Federal rules restrict any use of the information to criminally investigate or prosecute any alcohol or drug abuse patient.[facility]In the event this information is protected by the Federal Confidentiality of Alcohol and Drug Abuse Patient Records regulations: The Federal rules restrict any use of the information to criminally investigate or prosecute any alcohol or drug abuse patient.[facility] HospitalIn the event this information is protected by the Federal Confidentiality of Alcohol and Drug Abuse Patient Records regulations: The Federal rules restrict any use of the information to criminally investigate or prosecute any alcohol or drug abuse patient.[facility]In the event this information is protected by the Federal Confidentiality of Alcohol and Drug Abuse Patient Records regulations: The Federal rules restrict any use of the information to criminally investigate or prosecute any alcohol or drug abuse patient.[facility]In the event this information is protected by the Federal Confidentiality of Alcohol and Drug Abuse Patient Records regulations: The Federal rules restrict any use of the information to criminally investigate or prosecute any alcohol or drug abuse patient.[facility]In the event this information is protected by the Federal Confidentiality of Alcohol and Drug Abuse Patient Records regulations: The Federal rules restrict any use of the information to criminally investigate or prosecute any alcohol or drug abuse patient.[facility]In the event this information is protected by the Federal Confidentiality of Alcohol and Drug Abuse Patient Records regulations: The Federal rules restrict any use of the information to criminally investigate or prosecute any alcohol or drug abuse patient.[facility] HospitalIn the event this information is protected by the Federal Confidentiality of Alcohol and Drug Abuse Patient Records regulations: The Federal rules restrict any use of the information to criminally investigate or prosecute any alcohol or drug abuse patient.[facility] HospitalIn the event this information is protected by the Federal Confidentiality of Alcohol and Drug Abuse Patient Records regulations: The Federal rules restrict any use of the information to criminally investigate or prosecute any alcohol or drug abuse patient.[facility]In the event this information is protected by the Federal Confidentiality of Alcohol and Drug Abuse Patient Records regulations: The Federal rules restrict any use of the information to criminally investigate or prosecute any alcohol or drug abuse patient.[facility]In the event this information is protected by the Federal Confidentiality of Alcohol and Drug Abuse Patient Records regulations: The Federal rules restrict any use of the information to criminally investigate or prosecute any alcohol or drug abuse patient.[facility] HospitalIn the event this information is protected by the Federal Confidentiality of Alcohol and Drug Abuse Patient Records regulations: The Federal rules restrict any use of the information to criminally investigate or prosecute any alcohol or drug abuse patient.[facility]In the event this information is protected by the Federal Confidentiality of Alcohol and Drug Abuse Patient Records regulations: The Federal rules restrict any use of the information to criminally investigate or prosecute any alcohol or drug abuse patient.[facility] HospitalIn the event this information is protected by the Federal Confidentiality of Alcohol and Drug Abuse Patient Records regulations: The Federal rules restrict any use of the information to criminally investigate or prosecute any alcohol or drug abuse patient.[facility] HospitalIn the event this information is protected by the Federal Confidentiality of Alcohol and Drug Abuse Patient Records regulations: The Federal rules restrict any use of the information to criminally investigate or prosecute any alcohol or drug abuse patient.[facility]In the event this information is protected by the Federal Confidentiality of Alcohol and Drug Abuse Patient Records regulations: The Federal rules restrict any use of the information to criminally investigate or prosecute any alcohol or drug abuse patient.[facility]In the event this information is protected by the Federal Confidentiality of Alcohol and Drug Abuse Patient Records regulations: The Federal rules restrict any use of the information to criminally investigate or prosecute any alcohol or drug abuse patient.[facility] HospitalIn the event this information is protected by the Federal Confidentiality of Alcohol and Drug Abuse Patient Records regulations: The Federal rules restrict any use of the information to criminally investigate or prosecute any alcohol or drug abuse patient.[facility] HospitalIn the event this information is protected by the Federal Confidentiality of Alcohol and Drug Abuse Patient Records regulations: The Federal rules restrict any use of the information to criminally investigate or prosecute any alcohol or drug abuse patient.[facility] the event this information is protected by the Federal Confidentiality of Alcohol and Drug Abuse Patient Records regulations: The Federal rules restrict any use of the information to criminally investigate or prosecute any alcohol or drug abuse patient.[facility]In the event this information is protected by the Federal Confidentiality of Alcohol and Drug Abuse Patient Records regulations: The Federal rules restrict any use of the information to criminally investigate or prosecute any alcohol or drug abuse patient.[facility] HospitalIn the event this information is protected [...] or prosecute any alcohol or drug abuse patient.[facility] HospitalIn the event this information is protected by the Federal Confidentiality of Alcohol and Drug Abuse Patient Records regulations: The Federal rules restrict any use of the information to criminally investigate or prosecute any alcohol or drug abuse patient.[facility]In the event this information is protected by the Federal Confidentiality of Alcohol and Drug Abuse Patient Records regulations: The Federal rules restrict any use of the information to criminally investigate or prosecute any alcohol or drug abuse patient.[facility]In the event this information is protected by the Federal Confidentiality of Alcohol and Drug Abuse Patient Records regulations: The Federal rules restrict any use of the information to criminally investigate or prosecute any alcohol or drug abuse patient.[facility]In the event this information is protected by the Federal Confidentiality of Alcohol and Drug Abuse Patient Records regulations: The Federal rules restrict any use of the information to criminally investigate or prosecute any alcohol or drug abuse patient.[facility]In the event this information is protected by the Federal Confidentiality of Alcohol and Drug Abuse Patient Records regulations: The Federal rules restrict any use of the information to criminally investigate or prosecute any alcohol or drug abuse patient.[facility]In the event this information is protected by the Federal Confidentiality of Alcohol and Drug Abuse Patient Records regulations: The Federal rules restrict any use of the information to criminally investigate or prosecute any alcohol or drug abuse patient.[facility]In the event this information is protected by the Federal Confidentiality of Alcohol and Drug Abuse Patient Records regulations: The Federal rules restrict any use of the information to criminally investigate or prosecute any alcohol or drug abuse patient.[facility]In the event this information is protected by the Federal Confidentiality of Alcohol and Drug Abuse Patient Records regulations: The Federal rules restrict any use of the information to criminally investigate or prosecute any alcohol or drug abuse patient.[facility]In the event this information is protected by the Federal Confidentiality of Alcohol and Drug Abuse Patient Records regulations: The Federal rules restrict any use of the information to criminally investigate or prosecute any alcohol or drug abuse patient.[facility]In the event this information is protected by the Federal Confidentiality of Alcohol and Drug Abuse Patient Records regulations: The Federal rules restrict any use of the information to criminally investigate or prosecute any alcohol or drug abuse patient.[facility]In the event this information is protected by the Federal Confidentiality of Alcohol and Drug Abuse Patient Records regulations: The Federal rules restrict any use of the information to criminally investigate or prosecute any alcohol or drug abuse patient.[facility] Reason for Visit (unrecogniz ed section and content) Reason Comments Occupational Therapy OT Progress Note Specialty Diagnoses / Procedures Referred By Shiraz johnson Referred To Contact OCCUPATIONAL THERAPY Diagnoses Blindness right eye category 3, blindness left eye category 4 Procedures CONSULT TO SIZE CUTTER OCCUPATIONAL THERAPY EVAL HIGH COMPLEX 60 MINS Wolf Mason, OD [address] [facility] [address] [place] [id number] Michelle Perez OT/L Referral ID Status Reason Start Date Expiration Date Visits Requested Visits Authorized [id number] Authorized Auto-Generat ed Referral 09/02/2022 09/01/2023 20 [...] IRIS AND CILIARY BODY [place] [facility] [address] [place] [address] Referral ID Status Reason Start Date Expiration Date Visits Re quested Visits Authorized [id number] 1 1 Reason Comments Post-op (Ophthalmology) Right Eye CE/IOL right eye 06/25/22 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 Comments Cough Reason Comments [...] OT LOW VISION Wolf Mason, OD [address] [facility] [address] [place] [address] Michelle Perez OT/L Referral ID Status Reason Start Date Expiration Date Visits Re quested Visits Authorized [id number] Closed 09/19/2022 12/18/2022 1 1 Reason Comments [...] Procedures EST AD[place] Cynthia Ramos [place] [address] [place] [address] Referral ID Status Reason Start Date Expiration Date Visits Re quested Visits Authorized [id number] Closed 09/25/2022 12/24/2022 1 1 Reason Comments Physical preop clearance for surgeries on 11/07/22, 11/15/22 Reason Comments Occupational Therapy Reason Comments Established Patient Pain Specialty Diagnoses / Procedures Referred By Contact Referred To Contact [facility] Diagnoses Hand pain Procedures HAND PAIN Self [facility] [address] [place] [address] Referral ID Status Reason Start Date Expiration Date V isits Requested Visits Authorized [id number] Closed OON/Self Pay Override 09/11/2022 09/01/2023 1 [...] REAL TIME WITH IMAGE LIMITED Destiney Pendleton APRN.MOLECULAR SPECTROSCOPIST [address] [place] [address] [facility] [address] [place] [address] Referral ID Status Reason Start Date Expiration Date V isits Requested Visits Authorized [id number] Closed Auto-Generate d Referral 09/28/2022 10/28/2023 1 1 Specialty Diagnoses / Procedures Referred By Contac t Referred To Contact [facility] Diagnoses Encounter for screening mammogram for high-risk patient Procedures mamograms screening Ifeoma Davis MD [address] [place] [address] [facility] [address] [place] [address] Referral ID Status Reason Start Date Expiration Date V isits Requested Visits Authorized [id number] Closed OON/Self Pay Override 09/11/2022 09/01/2023 1 1 Reason Onset Date Comments Refill Request 07/23/2023 Reason Comments Glaucoma Follow Up 6 month HVF 24-2 OU & MAC OCT Reason Onset Date Comments [facility] Navigation Outreach 10/04/2023 Drew Care Gaps Reason Onset Date Comments [facility] Navigation Outreach 10/25/2023 Drew AWV Reason Onset Date Comments Refill Request [...] Reason Comments Letter Reason Onset Date Comments [facility] Navigation Outreach 05/29/2024 Med adherence Reason Comments F/U 6 months needs some home heal th care due to vision loss Reason Onset Date Comments [facility] Navigation Outreach 06/12/2024 Bradly CHAMORRO Reason Onset Date Comments [facility] Navigation Outreach 06/15/2024 Med Adherence [...] Reason Comments Recheck 10/31/24 UA done at [facility], always tired Reason Comments Recheck 2 [...] 4/> ADDL BRIDGET ATTND POLYSOMNOGRAM Kimberley Ambrocio, ROCK CRUSHER.MOLECULAR SPECTROSCOPIST [address] [place] [address] Phone: tel: fax: [facility] [address] [place] [address] Phone: tel: fax: Referral ID Status Reason Start Date Expiration Date Visits Re quested Visits Authorized [id number] Closed 11/04/2024 09/01/2025 1 1 Reason Comments [...] Care Teams (unrecognized sec tion and content) Home Attendant Relationship Specialty Start Date End Date Ifeoma Davis MD [address] [facility] [place] [address] PCP - General Internal Medicine 12/07/14 Home Attendant Relationship Specialty Start Date End Date Ifeoma Davis MD [address] [facility] [place] [address] PCP - General Internal Medicine 12/07/14 Home Attendant Relationship Specialty Start Date End Date Ifeoma Davis MD [address] [facility] [place] [address] PCP - General Internal Medicine 12/07/14 Home Attendant Relationship Specialty Start Date End Date Ifeoma Davis MD [address] [facility] [place] [address] PCP - General Internal Medicine 12/07/14 Home Attendant Relationship Specialty Start Date End Date Ifeoma Davis MD [address] [facility] [place] [address] PCP - General Internal Medicine 12/07/14 Home Attendant Relationship Specialty Start Date End Date Ifeoma Davis MD [address] [facility] [place] [address] PCP - General Internal Medicine 12/07/14 Home Attendant Relationship Specialty Start Date End Date Ifeoma Davis MD [address] [facility] [place] [address] PCP - General Internal Medicine 12/07/14 Home Attendant Relationship Specialty Start Date End Date Ifeoma Davis MD [address] [facility] [place] [address] PCP - General Internal Medicine 12/07/14 Home Attendant Relationship Specialty Start Date End Date Ifeoma Davis MD [address] [place] [address] PCP - General Internal Medicine 12/07/14 Home Attendant Relationship Specialty Start Date End Date Ifeoma Davis MD [address] [place] [address] PCP - General Internal Medicine 12/07/14 Home Attendant Relationship Specialty Start Date End Date Ifeoma Davis MD [address] [place] [address] PCP - General Internal Medicine 12/07/14 Home Attendant Relationship Specialty Start Date End Date Ifeoma Davis MD [address] [place] [address] PCP - General Internal Medicine 12/07/14 Home Attendant Relationship Specialty Start Date End Date Ifeoma Davis MD [address] [place] [address] PCP - General Internal Medicine 12/07/14 Home Attendant Relationship Specialty Start Date End Date Ifeoma Davis MD [address] [place] [address] PCP - General Internal Medicine 12/07/14 Home Attendant Relationship Specialty Start Date End Date Ifeoma Davis MD [address] [place] [address] PCP - General Internal Medicine 12/07/14 Home Attendant Relationship Specialty Start Date End Date Ifeoma Davis MD [address] [place] [address] PCP - General Internal Medicine 12/07/14 Home Attendant Relationship Specialty Start Date End Date Ifeoma Davis MD [address] [place] [address] PCP - General Internal Medicine 12/07/14 Home Attendant Relationship Specialty Start Date End Date Ifeoma Davis MD [address] [place] [address] PCP - General Internal Medicine 12/07/14 Home Attendant Relationship Specialty Start Date End Date Ifeoma Davis MD [address] [place] [address] PCP - General Internal Medicine 12/07/14 Home Attendant Relationship Specialty Start Date End Date Ifeoma Davis MD [address] [place] [address] PCP - General Internal Medicine 12/07/14 Home Attendant Relationship Specialty Start Date End Date Ifeoma Davis MD [address] [place] [address] PCP - General Internal Medicine 12/07/14 Home Attendant Relationship Specialty Start Date End Date Ifeoma Davis MD [address] [place] [address] PCP - General Internal Medicine 12/07/14 Home Attendant Relationship Specialty Start Date End Date Ifeoma Davis MD [address] [place] [address] PCP - General Internal Medicine 12/07/14 Home Attendant Relationship Specialty Start Date End Date Ifeoma Davis MD [address] [place] [address] PCP - General Internal Medicine 12/07/14 Home Attendant Relationship Specialty Start Date End Date Ifeoma Davis MD [address] [place] [address] PCP - General Internal Medicine 12/07/14 Home Attendant Relationship Specialty Start Date End Date Ifeoma Davis MD [address] [place] [address] PCP - General Internal Medicine 12/07/14 Home Attendant Relationship Specialty Start Date End Date Ifeoma Davis MD [address] [place] [address] PCP - General Internal Medicine 12/07/14 Home Attendant Relationship Specialty Start Date End Date Ifeoma Davis MD [address] [place] [address] PCP - General Internal Medicine 12/07/14 Home Attendant Relationship Specialty Start Date End Date Ifeoma Davis MD [address] [facility] [place] [address] PCP - General Internal Medicine 12/07/14 Home Attendant Relationship Specialty Start Date End Date Ifeoma Davis MD [address] [place] [address] PCP - General Internal Medicine 12/07/14 Home Attendant Relationship Specialty Start Date End Date Ifeoma Davis MD [address] [place] [address] PCP - General Internal Medicine 12/07/14 Home Attendant Relationship Specialty Start Date End Date Ifeoma Davis MD [address] [place] [address] PCP - General Internal Medicine 12/07/14 Home Attendant Relationship Specialty Start Date End Date Ifeoma Davis MD [address] [place] [address] PCP - General Internal Medicine 12/07/14 Home Attendant Relationship Specialty Start Date End Date Ifeoma Davis MD [address] [place] [address] PCP - General Internal Medicine 12/07/14 Home Attendant Relationship Specialty Start Date End Date Ifeoma Davis MD [address] [place] [address] PCP - General Internal Medicine 12/07/14 Home Attendant Relationship Specialty Start Date End Date Ifeoma Davis MD [address] [place] [address] PCP - General Internal Medicine 12/07/14 Team Status: Active Member Role Status Dates Dr. Ifeoma Davis MD Family Provider Active Dr. Ifeoma Davis MD Primary Care Provider Active Team Status: Inactive Member Role Status Dates Dr. Ifeoma Davis MD Primary Care Provider Active CAREY VALLE Attending Provider, Referring Provide r Active Home Attendant Relationship Specialty Start Date End Date Ifeoma Davis MD [address] [place] [address] PCP - General Internal Medicine 12/07/14 Home Attendant Relationship Specialty Start Date End Date Ifeoma Davis MD [address] [place] [address] PCP - General Internal Medicine 12/07/14 Home Attendant Relationship Specialty Start Date End Date Ifeoma Davis MD [address] [place] [address] PCP - General Internal Medicine 12/07/14 Home Attendant Relationship Specialty Start Date End Date Ifeoma Davis MD [address] [place] [address] PCP - General Internal Medicine 12/07/14 Home Attendant Relationship Specialty Start Date End Date Ifeoma Davis MD [address] [place] [address] PCP - General Internal Medicine 12/07/14 Home Attendant Relationship Specialty Start Date End Date Ifeoma Davis MD [address] [place] [address] PCP - General Internal Medicine 12/07/14 Home Attendant Relationship Specialty Start Date End Date Ifeoma Davis MD [address] [facility] [place] [address] PCP - General Internal Medicine 12/07/14 Home Attendant Relationship Specialty Start Date End Date Ifeoma Davis MD [address] [place] [address] PCP - General Internal Medicine 12/07/14 Home Attendant Relationship Specialty Start Date End Date Ifeoma Davis MD [address] [place] [address] PCP - General Internal Medicine 12/07/14 Home Attendant Relationship Specialty Start Date End Date Ifeoma Daivs MD [address] [place] [address] PCP - General Internal Medicine 12/07/14 Home Attendant Relationship Specialty Start Date End Date Ifeoma Davis MD [address] [place] [address] PCP - General Internal Medicine 12/07/14 Home Attendant Relationship Specialty Start Date End Date Ifeoma Davis MD [address] [place] [address] PCP - General Internal Medicine 12/07/14 Home Attendant Relationship Specialty Start Date End Date Ifeoma Davis MD [address] [place] [address] PCP - General Internal Medicine 12/07/14 Home Attendant Relationship Specialty Start Date End Date Ifeoma Davis MD [address] [place] [address] PCP - General Internal Medicine 12/07/14 Team [...] Pozo DO Attending Provider, Referring Provider Active Home Attendant Relationship Specialty Start Date End Date Ifeoma Davis MD [address] [place] [address] PCP - General Internal Medicine 12/07/14 Home Attendant Relationship Specialty Start Date End Date Ifeoma Davis MD [address] [place] [address] PCP - General Internal Medicine 12/07/14 Home Attendant Relationship Specialty Start Date End Date Ifeoma Davis MD [address] [place] [address] PCP - General Internal Medicine 12/07/14 Home Attendant Relationship Specialty Start Date End Date Ifeoma Davis MD [address] [place] [address] PCP - General Internal Medicine 12/07/14 Home Attendant Relationship Specialty Start Date End Date Ifeoma Davis MD [address] [place] [address] PCP - General Internal Medicine 12/07/14 Home Attendant Relationship Specialty Start Date End Date Ifeoma Davis MD [address] [place] [address] PCP - General Internal Medicine 12/07/14 Home Attendant Relationship Specialty Start Date End Date Ifeoma Davis MD [address] [place] [address] PCP - General Internal Medicine 12/07/14 Home Attendant Relationship Specialty Start Date End Date Ifeoma Davis MD [address] [place] [address] PCP - General Internal Medicine 12/07/14 Home Attendant Relationship Specialty Start Date End Date Ifeoma Davis MD [address] [place] [address] PCP - General Internal Medicine 12/07/14 Home Attendant Relationship Specialty Start Date End Date Ifeoma Davis MD [address] [place] [address] PCP - General Internal Medicine 12/07/14 Home Attendant Relationship Specialty Start Date End Date Ifeoma Davis MD [address] [place] [address] PCP - General Internal Medicine 12/07/14 Home Attendant Relationship Specialty Start Date End Date Ifeoma Davis MD [address] [place] [address] PCP - General Internal Medicine 12/07/14 Home Attendant Relationship Specialty Start Date End Date Ifeoma Davis MD [address] [place] [address] PCP - General Internal Medicine 12/07/14 Home Attendant Relationship Specialty Start Date End Date Ifeoma Davis MD [address] [place] [address] PCP - General Internal Medicine 12/07/14 Home Attendant Relationship Specialty Start Date End Date Ifeoma Davis MD [address] [place] [address] PCP - General Internal Medicine 12/07/14 Home Attendant Relationship Specialty Start Date End Date Ifeoma Davis MD [address] [place] [address] PCP - General Internal Medicine 12/07/14 Virginia Avalos PA-C [address] [place] [address] [phone] [facility] 08/09/24 David Anna APRN.MOLECULAR SPECTROSCOPIST [address] [place] [address] [facility] 08/09/24 Domitila Knapp PA-C [address] [place] [address] [facility] 08/09/24 Home Attendant Relationship Specialty Start Date End Date Ifeoma Davis MD [address] [place] [address] PCP - General Internal Medicine 12/07/14 Virginia Avalos PA-C [address] [place] [address] [phone] [facility] 08/09/24 David Anna APRN.MOLECULAR SPECTROSCOPIST [address] [place] [address] [facility] 08/09/24 Domitila Knapp PA-C [address] [place] [address] [facility] 08/09/24 Home Attendant Relationship Specialty Start Date End Date Ifeoma Davis MD [address] [place] [address] PCP - General Internal Medicine 12/07/14 Virginia Avalos PA-C [address] [place], [place] [phone] [facility] 08/09/24 David Anna APRN.MOLECULAR SPECTROSCOPIST [address] [place] [address] [facility] 08/09/24 Domitila Knapp PA-C [address] [place] [address] [facility] 08/09/24 Home Attendant Relationship Specialty Start Date End Date Ifeoma Davis MD [address] [place] [address] PCP - General Internal Medicine 12/07/14 Virginia Avalos PA-C [address] [place] [address] [facility] Family [facility] 08/09/24 David Anna APRN.MOLECULAR SPECTROSCOPIST [address] [place] [address] [facility] 08/09/24 Domitila Knapp PA-C [address] [place] [address] [facility] 08/09/24 Home Attendant Relationship Specialty Start Date End Date Ifeoma Davis MD [address] [place] [address] PCP - General Internal Medicine 12/07/14 Virginia Avalos PA-C [address] [place], [place] [phone] [facility] 08/09/24 David Anna APRN.MOLECULAR SPECTROSCOPIST [address] [place] [address] [facility] 08/09/24 Domitila Knapp PA-C [address] [place] [address] [facility] 08/09/24 Home Attendant Relationship Specialty Start Date End Date Ifeoma Davis MD [address] [place] [address] PCP - General Internal Medicine 12/07/14 Virginia Avalos PA-C [address] [place] [phone] [facility] 08/09/24 David Anna APRN.MOLECULAR SPECTROSCOPIST [address] [place] [address] [facility] 08/09/24 Domitila Knapp PA-C [address] [place] [address] [facility] 08/09/24 Home Attendant Relationship Specialty Start Date End Date Ifeoma Davis MD [address] [place] [address] PCP - General Internal Medicine 12/07/14 Virginia Avalos PA-C [address] [place] [address] [phone] [facility] 08/09/24 David Anna APRN.MOLECULAR SPECTROSCOPIST [address] [place] [address] [facility] 08/09/24 Domitila Knapp PA-C [address] [place] [address] [facility] Home Attendant Relationship Specialty Start Date End Date Ifeoma Davis MD [address] [place] [address] PCP - General Internal Medicine 12/07/14 Virginia Avalos PA-C [address] [place] [phone] [facility] 08/09/24 David Anna, ROCK CRUSHER.MOLECULAR SPECTROSCOPIST [address] [place] [address] [facility] 08/09/24 Domitila Knapp PA-C [address] [place] [address] [facility] 08/09/24 Home Attendant Relationship Specialty Start Date End Date Ifeoma Davis MD [address] [facility] [place] [address] PCP - General Internal Medicine 12/07/14 Virginia Avalos PA-C [address] [place] [address] [facility] 08/09/24 Davdi Anna APRN.MOLECULAR SPECTROSCOPIST [address] [place] [address] [facility] 08/09/24 Domitila Knapp PA-C [address] [facility] [place] [address] [facility] 08/09/24 Home Attendant Relationship Specialty Start Date End Date Ifeoma Davis MD [address] [facility] [place] [address] PCP - General Internal Medicine 12/07/14 Virginia Avalos PA-C [address] [place] [phone] [facility] 08/09/24 David Anna, MURTAZA.MOLECULAR SPECTROSCOPIST [address] [place] [address] [facility] 08/09/24 Domitila Knapp PA-C [address] [facility] [place] [address] [facility] 08/09/24 Home Attendant Relationship Specialty Start Date End Date Ifeoma Davis MD [address] [facility] [place] [address] PCP - General Internal Medicine 12/07/14 Virginia Avalos PA-C [address] [place] [address] [facility] 08/09/24 David Anna APRN.MOLECULAR SPECTROSCOPIST [address] [place] [address] [facility] 08/09/24 Domitila Knapp PA-C [address] [place] [address] [facility] 08/09/24 Home Attendant Relationship Specialty Start Date End Date Ifeoma Davis MD [address] [place] [address] PCP - General Internal Medicine 12/07/14 Virginia Avalos PA-C [address] [place] [phone] [facility] 08/09/24 David Anna APRN.MOLECULAR SPECTROSCOPIST [address] [place] [address] [facility] 08/09/24 Domitila Knapp PA-C [address] [place] [address] [facility] 08/09/24 Home Attendant Relationship Specialty Start Date End Date Ifeoma Davis MD [address] [place] [address] PCP - General Internal Medicine 12/07/14 Virginia Avalos PA-C [address] [place] [address] [facility] 08/09/24 David Anna APRN.MOLECULAR SPECTROSCOPIST [address] [place], [place] 253881 [facility] Internal Medicine 08/09/24 Domitila Knapp PA-C [address] [place], [place] 824[address] [facility] 08/09/24 Team Status: Inactive Member Role [...] November 24, 2024 End: November 24, 2024 VOLTAGE TESTER. Allie Prakash Attending Provider Active Star t: November 24, 2024 End: November 24, 2024 VOLTAGE TESTER. Allie Prakash Referring Provider Active Star t: November 24, 2024 End: November 24, 2024 Home Attendant Relationship Specialty Start Date End Date Ifeoma Davis MD [address] [place], [place] 240261 PCP - General Internal Medicine 12/07/14 David Anna APRN.MOLECULAR SPECTROSCOPIST [address] [facility], [place] [address] [facility] Internal Medicine 08/09/24 Home Attendant Relationship Specialty Start Date End Date Ifeoma Davis MD [address] [place], [place] [address] PCP - General Internal Medicine 12/07/14 David Anna APRN.MOLECULAR SPECTROSCOPIST [address] [facility], [place] [address] [facility] 08/09/24 Home Attendant Relationship Specialty Start Date End Date Ifeoma Davis MD [address] [facility] [place], [place] [address] PCP - General Internal Medicine 12/07/14 David Anna APRN.MOLECULAR SPECTROSCOPIST [address] [place], [place] [address]49[address] [facility] 08/09/24 Home Attendant Relationship Specialty Start Date End Date Ifeoma Davis MD [address] [place], [place] 230431 PCP - General Internal Medicine 12/07/14 Virginia Avalos PA-C [address] [place] [phone] [facility] 08/09/24 11/22/24 David Anna APRN.MOLECULAR SPECTROSCOPIST [address] [place] [address] [facility] 08/09/24 Domitila Knapp PA-C [address] [place] [address] [facility] 08/09/24 11/22/24 Home Attendant Relationship Specialty Start Date End Date Ifeoma Davis MD [address] [place], [place] 985071 PCP - General Internal Medicine 12/07/14 David Anna APRN.MOLECULAR SPECTROSCOPIST [address] [place] [address] [facility] 08/09/24 Home Attendant Relationship Specialty Start Date End Date Ifeoma Davis MD [address] [place] [address] PCP - General Internal Medicine 12/07/14 David Anna APRN.MOLECULAR SPECTROSCOPIST [address] [place] [address] [facility] 08/09/24 Home Attendant Relationship Specialty Start Date End Date Ifeoma Davis MD [address] [place] [address] PCP - General Internal Medicine 12/07/14 David Anna APRN.MOLECULAR SPECTROSCOPIST [address] [place] [address] [facility] 08/09/24 Home Attendant Relationship Specialty Start Date End Date Ifeoma Davis MD [address] [place] [address] PCP - General Internal Medicine 12/07/14 Virginia Avalos PA-C [address] [place] [phone] [facility] 08/09/24 11/22/24 David Anna APRN.MOLECULAR SPECTROSCOPIST [address] [place] [address] [facility] 08/09/24 Domitila Knapp PA-C [address] [place], [place] 0[address]48 [facility] 08/09/24 11/22/24 Home Attendant Relationship Specialty Start Date End Date Ifeoma Davis MD [address] [place] [address] PCP - General Internal Medicine 12/07/14 Older, MURTAZA Jarrett.MOLECULAR SPECTROSCOPIST [address] [facility] [address] [facility] 08/09/24 Team Status: Active Member [...] November 24, 2024 End: November 24, 2024 VOLTAGE TESTERJermaine Prakash Attending Provider Active Star t: November 24, 2024 End: November 24, 2024 VOLTAGE TESTERJermaine Prakash Referring Provider Active Star t: [...] March 10, 2025 End: March 10, 2025 Home Attendant Relationship Specialty Start Date End Date Ifeoma Davis MD [address] [facility] [place] [address] PCP - General Internal Medicine 12/07/14 David Anna, ROCK CRUSHER.MOLECULAR SPECTROSCOPIST [address] [place] [address] [facility] 08/09/24 Home Attendant Relationship Specialty Start Date End Date Ifeoma Davis MD [address] [facility] [place] [address] PCP - General Internal Medicine 12/07/14 David Anna, ROCK CRUSHER.MOLECULAR SPECTROSCOPIST [address] [place] [address] [facility] 08/09/24 Home Attendant Relationship Specialty Start Date End Date Ifeoma Davis MD [address] [facility] [place] [address] PCP - General Internal Medicine 12/07/14 David Anna, ROCK CRUSHER.MOLECULAR SPECTROSCOPIST [address] [place] [address] [facility] 08/09/24 Home Attendant Relationship Specialty Start Date End Date Ifeoma Davis MD [address] [facility] [place] [address] PCP - General Internal Medicine 12/07/14 David Anna, ROCK CRUSHER.MOLECULAR SPECTROSCOPIST [address] [place] [address] [facility] 08/09/24 Home Attendant Relationship Specialty Start Date End Date Ifeoma Davis MD [address] [place] [address] PCP - General Internal Medicine 12/07/14 David Anna, ROCK CRUSHER.MOLECULAR SPECTROSCOPIST [address] [place] [address] [employer] 08/09/24 Home Attendant Relationship Specialty Start Date End Date Ifeoma Davis MD [address] [place] [address] PCP - General Internal Medicine 12/07/14 David Anna, ROCK CRUSHER.MOLECULAR SPECTROSCOPIST [address] [place] [address] [employer] 08/09/24 Home Attendant Relationship Specialty Start Date End Date Ifeoma Davis MD [address] [place] [address] PCP - General Internal Medicine 12/07/14 David Anna, ROCK CRUSHER.MOLECULAR SPECTROSCOPIST [address] [place] [address] [employer] 08/09/24 Home Attendant Relationship Specialty Start Date End Date Ifeoma Davis MD [address] [place] [address] PCP - General Internal Medicine 12/07/14 Virginia Avalos PA-C [address] [place] [address] [facility] 08/09/24 11/22/24 David Anna APRN.MOLECULAR SPECTROSCOPIST [address] [place], [place] [id number] [facility] 08/09/24 Domitila Knapp PA-C [address] [place], [place] [address] [facility] 08/09/24 11/22/24 Home Attendant Relationship Specialty Start Date End Date Ifeoma Davis MD [address] [place], [place] [address] PCP - General Internal Medicine 12/07/14 Virginia Avalos PA-C [address] [place] [address] [facility] 08/09/24 11/22/24 David Anna, ROCK CRUSHER.MOLECULAR SPECTROSCOPIST [address] [place], [place] [id number] [facility] 08/09/24 Domitila Knapp PA-C [address] [place] [address] [facility] 08/09/24 11/22/24 Team Status: Inactive Member [...] April 16, 2025 End: April 16, 2025 Home Attendant Relationship Specialty Start Date End Date Ifeoma Davis MD [address] [place] [address] PCP - General Internal Medicine 12/07/14 David Anna APRN.CNP [address] [place] [address] [employer] 08/09/24 Home Attendant Relationship Specialty Start Date End Date Ifeoma Davis MD [address] [place] [address] PCP - General Internal Medicine 12/07/14 David Anna, ROCK CRUSHER.MOLECULAR SPECTROSCOPIST [address] [place] [address] [employer] [employer] [facility] 08/09/24 Home Attendant Relationship Specialty Start Date End Date Ifeoma Davis MD [address] [facility] [place], [place] [address] PCP - General Internal Medicine 12/07/14 David Anna, ROCK CRUSHER.MOLECULAR SPECTROSCOPIST [address] [place] [address] [employer] 08/09/24 Team Status: Active Member [...] 17, 2025 End: June 17, 2025 Dr. Patit Piña DO Emergency Department Physician Ac tive [...] (Given - Provid er: Jonathon Eugene MD) [id number] 3.5 mg/g-10,000 unit/g-0.1 % (POLYDEX) X (OR/PROCEDURE) [...] section and content) DATE CREATED AUTHOR 11/01/2022 [facility]ter DATE CREATED AUTHOR AUTHOR'S ORGANIZ ATION 11/09/2022 [facility] DATE CREATED AUTHOR AUTHOR'S ORGANIZ ATION 01/08/2025 [facility] DATE CREATED AUTHOR AUTHOR'S ORGANIZ ATION 07/12/2025 [facility] DATE CREATED AUTHOR AUTHOR'S ORGANIZ ATION 07/14/2025 [facility] Goals (unrecognized section and content) Goals [...] BE BASED ON THE PRIMARY CLINICAL RECORDS. [employer] [facility]. provides no warranty or guarantee of the accuracy or completeness of information in this document.
--- NOTE | 2025-08-22 17:05 | CT_ITS ---
PROCEDURE: BRAIN/HEAD WITHOUT CONTRAST 08/22/2025 REASON FOR EXAM: HEADACHE TECHNIQUE: Procedure Code: CTBR Modality: CT Procedure: BRAIN/HEAD WITHOUT CONTRAST Coronal and Sagittal reconstruction series were provided. One or more dose reduction techniques were used (e.g., Automated exposure control, adjustment of the mA and/or kV according to patient size, use of iterative reconstruction technique. RADIATION DOSE SUMMARY: DLP: 720 mGycm FINDINGS: There is no acute infarct, intracranial hemorrhage, or mass effect. There is no hydrocephalus or significant midline shift. There is mild chronic microvascular ischemic changes and mild parenchymal volume loss. No acute, depressed calvarial fractures. No large scalp hematomas. The paranasal sinuses are clear. CT/Brain/Head without Contrast IMPRESSION: No acute intracranial process. Reading Location: [id number]
--- NOTE | 2025-08-22 17:08 | EX.ED.VIS.HA ---
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 Patient states she suffers with daily headaches. She states today after going from mosque her headache felt different she has pain from her neck up. She states her headache is worse at the back of her head, neck and she has pain in her face. States she has increased photosensitivity than she normally does. Notes that she has central vision loss at baseline. She feels that her vision is worse when trying to look at screens today even with her readers. She does not report a thunderclap headache. Denies any associated numbness or tingling. States that the increased light sensitivity is actually been going on for the past month but is much worse today. Had a recent MRI which showed no new T2 lesions however there were few lesions with central vein signs and concern for possible MS. Patient was referred to MS clinic for further evaluation. Pat Medications for her migraines. No she usually does have relief in the ER. States she did try Dermax for her headaches however did not help. Also complains of a lot of of pain in her joints especially in her left hip. States because of this she does not sleep well at night.ient does not think she has MS however. She follows with the [facility]. She states she seen multiple neurologist but does not have any [facility] Medical History PXE (pseudoxanthoma elasticum) Wears glasses Depression Anxiety High cholesterol Ambulates with cane GERD (gastroesophageal reflux disease) Non-smoker Hip arthritis Degenerative scoliosis Lumbar radiculopathy Spondylolisthesis History of trigger finger Fibromyalgia Restless legs Hot flashes Legal blindness of both eyes as defined in [place] PXE (pseudoxanthoma elasticum) Hypertension Home Medications Medication Instructions Recorded Last Taken Type atorvastatin 40 mg tablet 40 mg PO QHS HLD 01/17/17 08/01/25 History omeprazole 20 mg capsule,delayed 20 mg PO DAILY GERD 11/20/21 08/02/25 History release amlodipine 2.5 mg tablet 2.5 mg PO QDAY HTN 12/09/24 08/02/25 History aspirin 81 mg tablet,delayed 81 mg PO QDAY HEART HEALTH 12/09/24 08/02/25 History release (Adult Low Dose Aspirin) escitalopram oxalate 10 mg tablet 10 mg PO QDAY ANXIETY 12/09/24 08/02/25 History estradiol 0.1 mg/24 hr semiweekly 1 patch transdermal QWEEK HORMONE 12/09/24 07/29/25 History transdermal patch (Darling) REPLACEMENT lisinopril 10 1 tab PO QDAY HTN 12/09/24 08/02/25 History mg-hydrochlorothiazide 12.5 mg tablet magnesium 200 mg tablet 200 mg PO QDAY SUPPLEMENT 12/09/24 08/02/25 History cevimeline 30 mg capsule 1 cap PO DAILY DRY MOUTH 06/11/25 08/01/25 History cholecalciferol (vitamin D3) 50 50 mcg PO DAILY SUPPLEMENT 06/11/25 08/02/25 History mcg (2,000 unit) capsule (Vitamin D3) bupropion HCl 150 mg 24 hr tablet, 150 mg PO DAILY 06/17/25 08/02/25 History extended release clopidogrel 75 mg tablet (Plavix) 75 mg PO DAILY #30 tabs 06/17/25 08/02/25 Rx trazodone 100 mg tablet 100 mg PO QHS 06/17/25 08/01/25 History diphenhydramine HCl 25 mg capsule 50 mg PO UD 08/02/25 08/01/25 History fluticasone propionate 50 2 spray intranasal DAILY 08/02/25 08/01/25 History mcg/actuation nasal spray,suspension gabapentin 300 mg capsule 600 mg PO DAILY 08/02/25 08/02/25 History ketorolac 0.5 % eye drops 1 drp ophthalmic (eye) 4X/DAY 08/02/25 08/02/25 History potassium chloride 10 mEq 10 meq PO DAILY 08/02/25 08/02/25 History tablet,extended release methocarbamol 500 mg tablet 500 mg PO TID PRN neck pain #20 08/22/25 Unknown Rx tabs Allergy/AdvReac Type Severity Reaction Status Date / Time hydrocodone bitartrate (From AdvReac Itching Verified 08/22/25 16:17 Vicodin) nitrofurantoin (From AdvReac Other Verified 08/22/25 16:17 Macrobid) nitrofurantoin AdvReac Other Verified 08/22/25 16:17 macrocrystalline (From Macrobid) propoxyphene (From AdvReac Other Verified 08/22/25 16:17 Darvocet-N) tramadol HCl (From Ultram) AdvReac Other Verified 08/22/25 16:17 Family History Father Lung cancer Mother COPD (chronic obstructive pulmonary disease) CVA (cerebral vascular accident) Son Myocardial infarction Other Breast cancer Ovarian cancer Surgical History History of eye surgery Status post glaucoma surgery S/P right knee arthroscopy S/P Social History household members: none housing: house Smoking Status: Never smoker alcohol intake: current alcohol intake frequency: holidays/special occasions only substance use type: does not use ROS ROS ED Constitutional Constitutional ED: Denies chills or fever(s) Eyes Eyes: Reports other Details: Central vision loss–chronic, photophobia ENT ENT ED: Denies sore throat Respiratory/Chest Respiratory/Chest: Denies cough or dyspnea Gastrointestinal Gastrointestinal: Reports nausea; Denies abdominal pain or vomiting Musculoskeletal Musculoskeletal: Reports arthralgias, back pain, myalgias and neck pain Integumentary Denies rash Neurologic Neurologic: Reports headache(s) and weakness Psychiatric Psychiatric: Reports anxiety Hematologic/Lymphatic Hematologic/Lymphatic: Denies easy bleeding or easy bruising EXAM Physical Exam Const Vital Signs: 08/22/25 16:15 08/22/25 17:47 08/22/25 17:57 Temperature 97.2 F L Temperature Source Temporal Pulse Rate 88 64 68 Respiratory Rate 16 16 Blood Pressure 148/93 H 123/111 H 105/60 Blood Pressure Mean 111 115 75 Pulse Ox 100 100 98 Oxygen Delivery Method Room Air Room Air Room Air 08/22/25 18:09 08/22/25 19:01 08/22/25 19:53 Temperature 97.2 F L Temperature Source Pulse Rate 62 65 Respiratory Rate 18 Blood Pressure 105/60 99/65 108/60 Blood Pressure Mean 75 76 76 Pulse Ox 98 100 Oxygen Delivery Method 08/22/25 19:54 Temperature Temperature Source Pulse Rate 65 Respiratory Rate Blood Pressure 108/60 Blood Pressure Mean 76 Pulse Ox Oxygen Delivery Method Positive well nourished and well developed General Appearance ED: well developed and NAD HEENT Reports normocephalic, TM's clear and moist mucous membranes atraumatic Tympanic Membrane ED: Yes TM's clear Eyes PERRL and EOMs intact bilaterally Neck supple and no meningeal signs Neck Narrative: Pain with palpation of the cervical paraspinal muscles bilaterally. She jumps with even light palpation. Bilateral trapezius spasm also present. Resp normal respiratory effort and clear to auscultation bilaterally Cardio regular rate and regular rhythm GI non-tender Extremity normal to inspection General Extremety ED: Negative for edema General Extremity: Negative for edema Neuro oriented x3, CN's II-XII intact bilaterally and no sensory deficits noted Neuro Narrative: NIH equals 0 Sensorium / Orientation: awake and alert Speech: speech normal Sensory Exam: No sensory level loss detected Motor Exam: strength 5/5 throughout Psych Mood & Affect: anxious Skin Lesions: no lesions Rashes: no rashes MDM MDM MDM Narrative Medical decision making narrative: Patient evaluated for worsening headache and neck pain. Has a history of this however feels her symptoms been worsening especially today. States she has had progressive worsening light sensitivity over the past month. Had a recent outpatient MRI and I was able to review the results on her phone through care everywhere. She has no acute abnormalities but does have lesions with central vein sign and no T2 flair lesions concerning for possible MS. Had been referred to an MS specialist from her neurosurgeon. Is followed for chronic vertebral artery dissection. Repeat CT is obtained that does not show any subacute infarct. Given that her symptoms been progressing over the last month lower suspicion for acute cerebral events especially as she has not any focal neurologic deficits on exam. Clinically I have suspicion of worsening tension headache associated with neck spasms. Patient given migraine cocktail of Toradol, Zofran, fluids and oral diazepam. Try to be sure she is previously been treated with morphine but this is contraindicated for migraines and will defer at this time. Patient's CT does not show any acute process. She is reevaluated and does have improvement however still is a mild headache. She is afebrile and low suspicion for meningitis because she given the chronicity of her symptoms and lack of infectious symptoms. Do not think she requires lab work at this time. Encouraged to follow-up with her PCP as well as neurosurgeon. Counseled that her neurosurgeon per chart review was concern for possible MS and she needs to follow-up for this. Given return precautions. Discharged home in stable condition. Radiography Diagnostic Testing: Clinical Impression(s) from Imaging Studies Brain CT 08/22/25 17:05 IMPRESSION: No acute intracranial process. Reading Location: [facility] Discharge Plan Triage Chief Complaint: Headache ED Provider: Lin Farris Dx/Rx/DC Orders Clinical Impression: Photophobia of both eyes, Tension headache Instructions: ED Headache, Tension Prescriptions: New methocarbamol 500 mg tablet 500 mg PO TID PRN (Reason: neck pain) Qty: 20 0RF No Action aspirin [Adult Low Dose Aspirin] 81 mg tablet,delayed release (DR/EC) 81 mg PO QDAY lisinopril-hydrochlorothiazide 10-12.5 mg tablet 1 tab PO QDAY amlodipine 2.5 mg tablet 2.5 mg PO QDAY estradiol [Darling] 0.1 mg/24 hr patch semiweekly 1 patch transdermal QWEEK escitalopram oxalate 10 mg tablet 10 mg PO QDAY magnesium 200 mg tablet 200 mg PO QDAY atorvastatin 40 MG tablet 40 mg PO QHS omeprazole 20 mg capsule,delayed release(DR/EC) 20 mg PO DAILY trazodone 100 mg tablet 100 mg PO QHS bupropion HCl 150 mg tablet extended release 24 hr 150 mg PO DAILY clopidogrel [Plavix] 75 mg tablet 75 mg PO DAILY Qty: 30 0RF cholecalciferol (vitamin D3) [Vitamin D3] 50 mcg (2,000 unit) capsule 50 mcg PO DAILY cevimeline 30 mg capsule 1 cap PO DAILY Patient Comments: takes qod diphenhydramine HCl 25 mg capsule 50 mg PO UD gabapentin 300 mg capsule 600 mg PO DAILY potassium chloride 10 mEq tablet extended release 10 meq PO DAILY ketorolac 0.5 % drops 1 drp ophthalmic (eye) 4X/DAY fluticasone propionate 50 mcg/actuation spray,suspension 2 spray INTRANASAL DAILY Primary Care Provider: Ifeoma Mustafa Referrals: Ifeoma Mustafa MD [Primary Care Provider, Internal Medicine] Activity Restrictions/Additional Instructions: Please follow-up with your family doctor for further management of your headaches. Based on your exam today suspect they are more tension headaches related to your back and neck pain. You been given a prescription for a muscle relaxer (methocarbamol) today. There are migraine abortive medication such as sumatriptan or Nurtec that you can discuss with either your neurologist or primary care doctor if they feel that this is more migraine related. Please continue to follow-up with neurosurgery as we discussed. Per the documentation from your neurosurgeon it seems that they are concerned that your symptoms could be related to MS and need further evaluation from that standpoint. Print Language: Setswana Disposition Disposition: Home, Self Care Discharge Date/Time: 08/22/25 20:07
[2025-08-22] MEDS: 0.9% Normal Saline (1000mL) 1,000 ML 999 ML IV (17:23)
== END 2025-08-22 20:07 | disposition home or self-care (01) ==
PROVIDERS: Emergency Provider Emergency Medicine; PCP Internal Medicine; Visit Provider Emergency Medicine
DX: G44.209 Tension-type headache, unspecified, not intractable (principal); M79.7 Fibromyalgia; E78.00 Pure hypercholesterolemia, unspecified; H53.143 Visual discomfort, bilateral; K21.9 Gastro-esophageal reflux disease without esophagitis; I10 Essential (primary) hypertension
CPT/HCPCS: 70450; 96361; 96374; 96375; 99283; A4216; J2405

== ENCOUNTER 2025-09-01 13:42 | Emergency (ER) | payer MEDICARE, MEDICAID, SELFPAY ==
[2025-09-01 13:43] VITALS: BP 96/66; PULSE 81; RESP 16; TEMP 36.4; O2SAT 99; BMI 28.3
[2025-09-01] MEDS: 0.9% Normal Saline (1000mL) 1,000 ML 1000 ML IV (16:54)
[2025-09-01] MEDS: DiphenhydrAMINE 50 MG/ML Syringe 25 MG IV (16:54)
[2025-09-01 17:00] VITALS: PULSE 67; RESP 16; O2SAT 94
--- NOTE | 2025-09-01 17:01 | EX.ED.VIS.HA ---
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 Patient states that she is followed with multiple neurologists at [facility] for her chronic headaches. She had a recent MRI which showed no new T2 lesions however there were few lesions with central vein signs and concern for possible MS. She states she is currently following with a neurologist for this. Patient states she has a constant headache but that it waxes and wanes. She states she saw her primary care physician for this yesterday in which they tried an oral regiment so that she did not have to come to the emergency department. Patient states the oral regiment did not work which is why she presents to the emergency department. She states she has been here multiple times to have her headache treated and it has helped with IV medications. She denies any recent injury or trauma. States this feels like her typical headaches. Denies acute onset of headache. She denies any fever, chills, syncope, numbness, tingling, weakness, nausea, vomiting, chest pain, shortness of breath, New neck pain other than her chronic pain. Review of systems: See HPI Medications: As listed on the chart Allergies: As listed on the chart PFSH: Per chart Vital signs: As listed on the chart. Reviewed. Physical exam: Gen: A&O x3, NAD Head: Normocephalic, atraumatic Eyes: No sclera icterus, conjunctiva clear, PERRL, EOMI ENT: TMs clear BL, moist mucous membranes, posterior oropharynx unremarkable Neck: Trachea midline, Full ROM, No meningismus, No tenderness CV: RRR, no murmurs Resp: Lungs CTA BL, no w/r/c Musc: Full ROM, no deformity Neuro: Alert, oriented, grossly intact, sensation intact Psych: Cooperative, appropriate mood and affect [facility] Medical History PXE (pseudoxanthoma elasticum) Wears glasses Depression Anxiety High cholesterol Ambulates with cane GERD (gastroesophageal reflux disease) Non-smoker Hip arthritis Degenerative scoliosis Lumbar radiculopathy Spondylolisthesis History of trigger finger Fibromyalgia Restless legs Hot flashes Legal blindness of both eyes as defined in [place] PXE (pseudoxanthoma elasticum) Hypertension Home Medications ?Medication ?Instructions ?Recorded ?Last Taken ?Type atorvastatin 40 mg tablet 40 mg PO QHS HLD 01/17/17 08/01/25 History omeprazole 20 mg capsule,delayed 20 mg PO DAILY GERD 11/20/21 08/02/25 History release amlodipine 2.5 mg tablet 2.5 mg PO QDAY HTN 12/09/24 08/02/25 History aspirin 81 mg tablet,delayed 81 mg PO QDAY HEART HEALTH 12/09/24 08/02/25 History release (Adult Low Dose Aspirin) escitalopram oxalate 10 mg tablet 10 mg PO QDAY ANXIETY 12/09/24 08/02/25 History estradiol 0.1 mg/24 hr semiweekly 1 patch transdermal QWEEK HORMONE 12/09/24 07/29/25 History transdermal patch (Darling) REPLACEMENT lisinopril 10 1 tab PO QDAY HTN 12/09/24 08/02/25 History mg-hydrochlorothiazide 12.5 mg tablet magnesium 200 mg tablet 200 mg PO QDAY SUPPLEMENT 12/09/24 08/02/25 History cevimeline 30 mg capsule 1 cap PO DAILY DRY MOUTH 06/11/25 08/01/25 History cholecalciferol (vitamin D3) 50 50 mcg PO DAILY SUPPLEMENT 06/11/25 08/02/25 History mcg (2,000 unit) capsule (Vitamin D3) bupropion HCl 150 mg 24 hr tablet, 150 mg PO DAILY 06/17/25 08/02/25 History extended release clopidogrel 75 mg tablet (Plavix) 75 mg PO DAILY #30 tabs 06/17/25 08/02/25 Rx trazodone 100 mg tablet 100 mg PO QHS 06/17/25 08/01/25 History diphenhydramine HCl 25 mg capsule 50 mg PO UD 08/02/25 08/01/25 History fluticasone propionate 50 2 spray intranasal DAILY 08/02/25 08/01/25 History mcg/actuation nasal spray,suspension gabapentin 300 mg capsule 600 mg PO DAILY 08/02/25 08/02/25 History ketorolac 0.5 % eye drops 1 drp ophthalmic (eye) 4X/DAY 08/02/25 08/02/25 History potassium chloride 10 mEq 10 meq PO DAILY 08/02/25 08/02/25 History tablet,extended release methocarbamol 500 mg tablet 500 mg PO TID PRN neck pain #20 08/22/25 Unknown Rx tabs Allergy/AdvReac Type Severity Reaction Status Date / Time hydrocodone bitartrate (From AdvReac Itching Verified 09/01/25 13:43 Vicodin) nitrofurantoin (From AdvReac Other Verified 09/01/25 13:43 Macrobid) nitrofurantoin AdvReac Other Verified 09/01/25 13:43 macrocrystalline (From Macrobid) propoxyphene (From AdvReac Other Verified 09/01/25 13:43 Darvocet-N) tramadol HCl (From Ultram) AdvReac Other Verified 09/01/25 13:43 Family History Father Lung cancer Mother COPD (chronic obstructive pulmonary disease) CVA (cerebral vascular accident) Son Myocardial infarction Other Breast cancer Ovarian cancer Surgical History History of eye surgery Status post glaucoma surgery S/P right knee arthroscopy S/P Social History household members: none housing: house Smoking Status: Never smoker alcohol intake: current alcohol intake frequency: holidays/special occasions only substance use type: does not use EXAM Physical Exam Const Vital Signs: 09/01/25 13:43 09/01/25 17:00 Temperature 97.6 F L Temperature Source Temporal Pulse Rate 81 67 Respiratory Rate 16 16 Blood Pressure 96/66 Blood Pressure Mean 76 Pulse Ox 99 94 Oxygen Delivery Method Room Air MDM MDM MDM Narrative Medical decision making narrative: 55-year-old female with chronic pain/headaches, 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 She states she is currently following with a neurologist for this. Patient states she has a constant headache but that it waxes and wanes. States this feels like her typical headaches. Patient denies acute onset of headache reaching maximal intensity in under one hour. This is neither the worst headache that they have ever experienced, nor was the onset timed with exertional activity or trauma. Patient has not experienced any fever, unusual neck pain or stiffness, syncope, or near syncope. She denies numbness, tingling, or weakness of the extremities. On chart review, patient has been seen multiple times in our emergency department for headache. The last episode being 08/22/2025. She was given a migraine cocktail of Toradol, Zofran, fluids, and oral diazepam. She had a CT of the head that showed no acute process. She had improvement in her headache and was ultimately discharged home. Given that this headache feels like her chronic headaches without any acute injury or signs of infection, I do not think any imaging is needed. She does had an unremarkable CT on 08/22/2025. Will treat patient's pain with a migraine cocktail-NS bolus, Reglan, Benadryl, Toradol with reevaluation. On reevaluation, patient's headache has improved. She was told to follow-up with her neurologist and primary care physician. Return back to ED symptoms change or worsen. She confirmed understand the plan. Patient will discharge. Impression: 1. Headache 2. History of chronic headaches Discharge Plan Triage Chief Complaint: Headache ED Provider: Geovanni Sorto Dx/Rx/DC Orders Prescriptions: No Action aspirin [Adult Low Dose Aspirin] 81 mg tablet,delayed release (DR/EC) 81 mg PO QDAY lisinopril-hydrochlorothiazide 10-12.5 mg tablet 1 tab PO QDAY amlodipine 2.5 mg tablet 2.5 mg PO QDAY estradiol [Darling] 0.1 mg/24 hr patch semiweekly 1 patch transdermal QWEEK escitalopram oxalate 10 mg tablet 10 mg PO QDAY magnesium 200 mg tablet 200 mg PO QDAY atorvastatin 40 MG tablet 40 mg PO QHS omeprazole 20 mg capsule,delayed release(DR/EC) 20 mg PO DAILY trazodone 100 mg tablet 100 mg PO QHS bupropion HCl 150 mg tablet extended release 24 hr 150 mg PO DAILY clopidogrel [Plavix] 75 mg tablet 75 mg PO DAILY Qty: 30 0RF cholecalciferol (vitamin D3) [Vitamin D3] 50 mcg (2,000 unit) capsule 50 mcg PO DAILY cevimeline 30 mg capsule 1 cap PO DAILY Patient Comments: takes qod diphenhydramine HCl 25 mg capsule 50 mg PO UD gabapentin 300 mg capsule 600 mg PO DAILY potassium chloride 10 mEq tablet extended release 10 meq PO DAILY ketorolac 0.5 % drops 1 drp ophthalmic (eye) 4X/DAY fluticasone propionate 50 mcg/actuation spray,suspension 2 spray INTRANASAL DAILY methocarbamol 500 mg tablet 500 mg PO TID PRN (Reason: neck pain) Qty: 20 0RF Primary Care Provider: Ifeoma Mustafa Referrals: Ifeoma Mustafa MD [Primary Care Provider, Internal Medicine] Print Language: Frisian
--- OUTSIDE RECORDS SUMMARY | 2025-09-01 17:57 | XMS RPT_ITS | CCD ---
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 Ifeoma Davis MD Primary Care Provider Dr. Edgar Beltran MD Attending Provider NP. Allie Prakash Attending Provider NP. Allie Prakash Referring Provider Virginia Avalos PA-C Unavailable Domitila Knapp PA-C Unavailable THORPE, KIMBERLEY Referring Unavailable GANTA, IFEOMA Primary Care Unavailable Susan CORREIA, Dr. Dia Referring Provider [facility] DO, Dr. Fisher Attending Provider Susan CORREIA, Dr. Dia Primary Care Provider Susan CORREIA, Dr. Dia Referring Provider [facility] DO, Dr. Fisher Attending Provider Ruby CORREIA, Dr. Hernández Attending Provider Rakesh CORREIA, Dr. Rodriguez Attending Provider Susan CORREIA, Dr. Dia Primary Care Physician [facility] DO, Dr. Fisher Attending Physician Ruby CORREIA, Dr. Hernández Attending Physician Rakesh CORREIA, Dr. Rodriguez Attending Physician Rakesh CORREIA, Dr. Rodriguez Referring Provider Papi CORREIA, Dr. Zambrano Emergency Department Physician Papi CORREIA, Dr. Zambrano Attending Physician [facility] DO, Dr. Fisher Referring Provider Unglyudmila DO, Dr. Armstrong Attending Physician Wang DO, Dr. Armstrong Emergency Department Physici an [facility], Dr. Galarza Emergency Departmen [...] Primary Care Unavailable Olinda, Allie Referring Unavailable [place], Allie Attending Unavailable Ganta, Ifeoma Primary Care [...] Unavailable Ganta, Ifeoma Primary Care Unavailable Ruby, Ethel Attending Unavailable Ganta, Ifeoma Primary Care Unavailable Ruby, Ethel Attending Unavailable Ganta, Ifeoma Primary Care Unavailable Ruby, Ethel Attending Unavailable Ganta, Ifeoma Primary Care Unavailable [...] / HYDROcodone Drug Allergy 04-28-20 12 Itching [facility] Nitrofurantoin (1 source) Nitrofurantoin Drug Allergy 03-05-20 20 Other: See Comments [facility] Opioid Agonists (4 sources) HYDROcodone Drug Allergy 03-12-20 06 Itching, Other: See Comments, Vomiting [facility] (20 sources) Acetaminophen / HYDROcodone; Translations: [HYDROCODONE-ACETA MINOPHEN] Drug Allergy 04-28-20 12 Itching [facility] Work Phone: (20 sources) HYDROcodone; Translations: [HYDROCODONE BITARTRATE] Drug Allergy 10-19-19 18 Itching [facility] (20 sources) Morphinan opioid; Translations: [OPIOIDS - MORPHINE ANALOGUES] Drug Allergy 03-05-20 20 Itching [facility] (20 sources) Nitrofurantoin; Translations: [NITROFURANTOIN] Drug Allergy 03-05-20 20 Other: See Comments [facility] (20 sources) Propoxyphene; Translations: [PROPOXYPHENE] Drug Allergy 03-05-20 20 Other: See Comments [facility] (20 sources) traMADol; Translations: [TRAMADOL] Drug Allergy 03-05-20 Other: See Comments [facility] (20 sources) traMADol; Translations: [TRAMADOL HCL] Drug Allergy 03-12-20 06 Vomiting [facility] (20 sources) Propoxyphene N-Acetaminophen; Translations: [PROPOXYPHENE N-ACETAMINOPHEN] Drug Intolerance 04-28-20 12 Mental Status Change [facility] Work Phone: (16 sources) nitrofurantoin macrocrystalline; Translations: [nitrofurantoin macrocrystalline] Propensity to adverse reactions 11-21-19 22 Other [facility] (1 source) HYDROcodone Drug Allergy 07-10-20 [facility] Repository (1 source) Nitrofurantoin Drug Allergy 07-10-20 [facility] Repository (1 source) Propoxyphene Drug Allergy 07-10-20 [facility] Repository (1 source) traMADol Drug Allergy 07-10-20 [facility] Repository Medications Current Medications Medication Drug [...] sources) Macrolide Antimicrobial Start: 04-11-2025 azithromycin (ZITHROMAX Z-SRINIVAS) 250 mg tablet 2 [...] Comment on above: Take 1 capsule by [facility] three times daily as needed for cough. [...] on above: Take 1 capsule by mo [facility] twice daily for 7 days. cevimeline 30 [...] by mouth once daily 84 hr estradiol 0.92841 mg/hr transdermal system (20 sources) Estrogen Start: [...] Comment on above: Take by mouth. Lacto No.22-Lydfwy-Xvq-Larch 25B cell-25B cell-50 mg capsule (2 sources) Start: 06-11-2025 take 1 capsule by mo [facility] once daily Start: 06-11-2025 take 1 capsule [...] Comment on above: Take 1 capsule by [facility] once daily. prednisoLONE acetate 10 mg/m l [...] (obstructive sleep apnea) APAP 5-18 cmH2O DME [facility] 1 each 12/17/2024 03/24/2025 Discontinued Start: 12-17-2024 End: 05-03-2052 CPAP/BIPAP/OTHER Indications : DAYSI (obstructive sleep apnea) APAP 5-18 cmH2O DME [facility] 1 each 12/17/2024 05/03/2052 Active cyclopentolate hydrochloride [...] extended release oral tablet (20 sources) Uncompetitive L-rdwbjw-R-asparta te Receptor Antagonist, Sigma-1 Agonist Start: 08-30-2023 [...] 14 capsule 04/11/2024 12/29/2024 Discontinued Estrogens, Conjugated (PENITENTIARY) / medroxyPROGESTERone (20 sources) Progestin, Estrogen Start: [...] Vitamin B12 Start: 12-09-2024 End: 06-11-2025 Vitamin N90-Oxoww Acid 500-400 mcg tablet Discontinued 1 {tbl} [...] on above: Take 1 capsule by mo [facility] daily at bedtime for 181 days. ibuprofen [...] above: Take 1 tablet by [facility] once daily. meclizine hydrochloride 25 mg [...] day for 7 (seven) days, then STOP Mv-4-Utu-Epa-Fish Oil-Vit D3 720 mg- 25 mcg capsule (12 sources) Start: 12-09-2024 End: 06-11-2025 Sr-4-Zzx-Epa-Fish Oil-Vit D3 720 mg- 25 mcg capsule Discontinued NMA PO December 08, 2024 11:00pm June 11, 2025 12:31pm Start: 12-09-2024 End: 06-11-2025 Vx-1-Dyu-Epa-Fish Oil-Vit D3 720 mg- 25 mcg capsule Discontinued NMA PO December 09, 2024 12:00am June 11, 2025 1:31pm Start: 12-09-2024 Ri-0-Prv-Epa-F elvia Oil-Vit D3 720 mg- 25 mcg capsule Active NMA PO December 09, 2024 12:00am Complies with drug therapy Start: 12-09-2024 Start: 12-09-2024 Fe-6-Gla-Epa-F elvia Oil-Vit D3 720 mg- 25 mcg [...] % 1 Drop (AK-DILATE, BENEDICT-SYNEPHRINE) polymyxin b 10039 unt/ml / trimethoprim 1 mg/ml ophthalmic solution [...] 2024 11:00pm March 10, 2025 1:39pm [facility] [employer] (4 sources) Start: 06-04-2025 End: 06-11-2025 take 1 capsule by mouth twice daily [facility] [employer] 450 mg capsule Discontinued 450 mg PO TWICE A DAY June 03, 2025 11:00pm June 11, 2025 12:32pm Start: 06-04-2025 End: 06-11-2025 take 1 capsule by mouth twice daily [facility] [employer] 450 mg capsule Discontinued 450 mg PO TWICE A DAY June 04, 2025 12:00am June 11, 2025 1:32pm Start: 06-04-2025 take 1 capsule by mo [facility] twice daily tropicamide 10 mg/ml ophthalmic solution [...] Onset: 06-30-2025 Episodic Other aftercare (1 source) 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 CNOVon 07-13-2025 CNOV [address] [facility] CRP SerPl-mCncon 07-13-2025 CRP [Mass/Vol] mg/L Normal <0.[address] [facility] Comment on above: Order Comment: Speci men Type: BLOOD SPECIMENOrdering Facility: [facility] Address: [address] [place] [address] Performed By: #### 1 988-5 ####[facility] LABCLIA [id number] [place] [address] [place] Emergency Department Summary on 07-10-2025 Emergency Department Summary [facility] Medical Records Department [address] [place] [address] Emergency Department Summary 07/10/25 MR#: [id number] Acct: [id number] Name: ALLIE LYNN Rep #: [id number] : 1970 55 From: Renato Hanley DO PCP: Dr. Ifeoma Davis MD Status:DEP ER Location: ED HPI History of Present Illness Chief Complaint: Headache Informant: patient and friend Narrative Narrative: Patient is a 55-year-old female with past medical history of hypertension anxiety and fibromyalgia. She states she was recently at the [facility] where she had an MRI of her brain and neck concerning for potential carotid obstruction or tear. She states that at the [facility] she had MRIs which confirmed no [...] presents at this time for symptom improvement [facility] Medical History (Updated 07/12/25 @ 00:21 by [...] SUPPLMENT 06/11/25 Unknown History cell-Bifido 25 billion rlnf-ZGH-uezem capsule cevimeline 30 mg capsule 1 cap [...] (chronic obstruct (more content not included)... Normal [facility] CNPNon 07-08-2025 CNPN Normal [facility] CNPNon 07-07-2025 CNPN Normal [facility] CNOVon 07-06-2025 CNOV Normal [facility] CNPTOUTREACHon 07-06-2025 CNPTOUTREACH Normal [facility] ALLIED HEALTHon 07-05-2025 ALLIED HEALTH Normal [facility] CBC W Auto Differential pane l (Bld)on 07-05-2025 Basophils (Bld) [#/Vol] 10*3/uL Normal <0.11 [facility] Comment on above: Order Comment: Speci men Type: BLOOD SPECIMENOrdering Facility: [facility] Address: [address] [place] [address] Performed By: #### 5 7021-8 ####[facility] LABCLIA [id number] [place] [address] [place] Basophils/100 WBC (Bld) 0.1 % Normal [facility] Comment on above: Order Comment: Speci men Type: BLOOD SPECIMENOrdering Facility: [facility] Address: [address] [place] [address] Performed By: #### 5 7021-8 ####[facility]CLIA [id number] [place] [address] [place] Differential cell count method Nom (Bld) Auto Normal [facility] Comment on above: Order Comment: Speci men Type: BLOOD SPECIMENOrdering Facility: [facility] Address: [address] [place] [address] Performed By: #### 5 7021-8 ####[facility]CL[facility] [id number] [place] [address] [place] Eosinophils (Bld) [#/Vol] 10*3/uL Normal <0.[address] [facility] Comment on above: Order Comment: Speci men Type: BLOOD SPECIMENOrdering Facility: [facility] Address: [address] [place] [address] Performed By: #### 5 7021-8 ####[facility]CL[facility] [id number] [place] [address] [place] Eosinophils/100 WBC (Bld) 0.0 % Normal [facility] Comment on above: Order Comment: Speci men Type: BLOOD SPECIMENOrdering Facility: [facility] Address: [address] [place] [address] Performed By: #### 5 7021-8 ####[facility]CL[facility] [id number] [place] [address] [place] Erythrocyte distribution width (RBC) [Ratio] 13.2 % Normal 11.5-15.[address] [facility] Comment on above: Order Comment: Speci men Type: BLOOD SPECIMENOrdering Facility: [facility] Address: [address] [place] [address] Performed By: #### 5 7021-8 ####[facility]CL[facility] [id number] [place] [address] [place] Hematocrit (Bld) [Volume fraction] 37.7 % Normal 36.0-46.[address] [facility] Comment on above: Order Comment: Speci men Type: BLOOD SPECIMENOrdering Facility: [facility] Address: [address] [place] [address] Performed By: #### 5 7021-8 ####[facility]CL[facility] [id number] [place] [address] [place] Hemoglobin (Bld) [Mass/Vol] 12.7 g/dL Normal 11.5-15.[address] [facility] Comment on above: Order Comment: Speci men Type: BLOOD SPECIMENOrdering Facility: [facility] Address: [address] [place] [address] Performed By: #### 5 7021-8 ####[facility]CL[facility] [id number] [place] [address] [place] Immature granulocytes (Bld) [#/Vol] 0.03 10*3/uL Normal <0.[address] [facility] Comment on above: Order Comment: Speci men Type: BLOOD SPECIMENOrdering Facility: [facility] Address: [address] [place] [address] Performed By: #### 5 7021-8 ####[facility]CL[facility] [id number] [place] [address] [place] Immature granulocytes/100 WBC (Bld) 0.4 % Normal [facility] Comment on above: Order Comment: Speci men Type: BLOOD SPECIMENOrdering Facility: [facility] Address: [address] [place] [address] Performed By: #### 5 7021-8 ####[facility]CL[facility] [id number] [place] [address] [place] Lymphocytes (Bld) [#/Vol] 0.48 10*3/uL Low 1.00-4.[address] [facility] Comment on above: Order Comment: Speci men Type: BLOOD SPECIMENOrdering Facility: [facility] Address: [address] [place] [address] Performed By: #### 5 7021-8 ####[facility]CL[facility] [id number] [place] [address] [place] Lymphocytes/100 WBC (Bld) 5.6 % Normal [facility] Comment on above: Order Comment: Speci men Type: BLOOD SPECIMENOrdering Facility: [facility] Address: [address] [place] [address] Performed By: #### 5 7021-8 ####[facility]CL[facility] [id number] [place] [address] [place] MCH (RBC) [Entitic mass] 30.1 pg Normal 26.0-34.[address] [facility] Comment on above: Order Comment: Speci men Type: BLOOD SPECIMENOrdering Facility: [facility] Address: [address] [place] [address] Performed By: #### 5 7021-8 ####[facility] LABIA [id number] [place] [address] [place] MCHC (RBC) [Mass/Vol] 33.7 g/dL Normal 30.5-36.0 [facility] Comment on above: Order Comment: Speci men Type: BLOOD SPECIMENOrdering Facility: [facility] Address: [address] [place] [address] Performed By: #### 5 7021-8 ####[facility] LABIA [id number] [place] [address] [place] MCV (RBC) [Entitic vol] 89.3 fL Normal 80.0-100.0 C [facility] Comment on above: Order Comment: Speci men Type: BLOOD SPECIMENOrdering Facility: [facility] Address: [address] [place] [address] Performed By: #### 5 7021-8 ####[facility]CL[facility] [id number] [place] [address] [place] Monocytes (Bld) [#/Vol] 0.14 10*3/uL Normal <0.[address] [facility] Comment on above: Order Comment: Speci men Type: BLOOD SPECIMENOrdering Facility: [facility] Address: [address] [place] [address] Performed By: #### 5 7021-8 ####[facility]CL[facility] [id number] [place] [address] [place] Monocytes/100 WBC (Bld) 1.6 % Normal [facility] Comment on above: Order Comment: Speci men Type: BLOOD SPECIMENOrdering Facility: [facility] Address: [address] [place] [address] Performed By: #### 5 7021-8 ####[facility] LABCLIA [id number] [place] [address] [place] Neutrophils (Bld) [#/Vol] 7.85 10*3/uL High 1.45-7.[address] [facility] Comment on above: Order Comment: Speci men Type: BLOOD SPECIMENOrdering Facility: [facility] Address: [address] [place] [address] Performed By: #### 5 7021-8 ####[facility]CL[facility] [id number] [place] [address] [place] Neutrophils/100 WBC (Bld) 92.3 % Normal [facility] Comment on above: Order Comment: Speci men Type: BLOOD SPECIMENOrdering Facility: [facility] Address: [address] [place] [address] Performed By: #### 5 7021-8 ####[facility]CL[facility] [id number] [place] [address] [place] Nucleated RBC (Bld) [#/Vol] 10*3/uL Normal <0.[address] [facility] Comment on above: Order Comment: Speci men Type: BLOOD SPECIMENOrdering Facility: [facility] Address: [address] [place] [address] Performed By: #### 5 7021-8 ####[facility] LABCLIA [id number] [place] [address] [place] Nucleated RBC/100 WBC (Bld) [Ratio] 0.0 /100 WBC Normal [facility] Comment on above: Order Comment: Speci men Type: BLOOD SPECIMENOrdering Facility: [facility] Address: [address] [place] [address] Performed By: #### 5 7021-8 ####[facility]CL[facility] [id number] [place] [address] [place] Platelet mean volume (Bld) [Entitic vol] 10.4 fL Normal 9.0-12.[address] [facility] Comment on above: Order Comment: Speci men Type: BLOOD SPECIMENOrdering Facility: [facility] Address: [address] [place] [address] Performed By: #### 5 7021-8 ####[facility]CL[facility] [id number] [place] [address] [place] Platelets (Bld) [#/Vol] 314 10*3/uL Normal 150-[address] [facility] Comment on above: Order Comment: Speci men Type: BLOOD SPECIMENOrdering Facility: [facility] Address: [address] [place] [address] Performed By: #### 5 7021-8 ####[facility]CLIA [id number] [place] [address] [place] RBC (Bld) [#/Vol] 4.22 10*6/uL Normal 3.90-5.20 [facility] Comment on above: Order Comment: Speci men Type: BLOOD SPECIMENOrdering Facility: [facility] Address: [address] [place] [address] Performed By: #### 5 7021-8 ####[facility]CL[facility] [id number] [place] [address] [place] WBC (Bld) [#/Vol] 8.51 10*3/uL Normal 3.70-11.00 [facility] Comment on above: Order Comment: Speci men Type: BLOOD SPECIMENOrdering Facility: [facility] Address: [address] [place] [address] Performed By: #### 5 7021-8 ####[facility] LABCLIA [id number] [place] [address] [place] CNPNon 11-03-2025 CNPN [address] [facility] CONSULTon 07-05-2025 CONSULT Normal [facility] CT BRAIN WO IVCONon 07-05-[address] BRAIN WO IVCON Normal [facility] Comprehensive metabolic 2000 panelon 07-05-2025 Albumin [Mass/Vol] 4.5 g/dL Normal 3.9-4.9 [facility] Comment on above: Order Comment: Speci men Type: BLOOD SPECIMENOrdering Facility: [facility] Address: [address] [place] [address] Performed By: #### 2 4323-8, [id number] ####[facility]CL[facility] [id number] [place] [address] [place] ALP [Catalytic activity/Vol] 116 U/L Normal 34-[address] [facility] Comment on above: Order Comment: Speci men Type: BLOOD SPECIMENOrdering Facility: [facility] Address: [address] [place] [address] Performed By: #### 2 4323-8, [id number] ####[facility]CL[facility] [id number] [place] [address] [place] ALT [Catalytic activity/Vol] 18 U/L Normal 7-[address] [facility] Comment on above: Order Comment: Speci men Type: BLOOD SPECIMENOrdering Facility: [facility] Address: [address] [place] [address] Performed By: #### 2 4323-8, [id number] ####[facility]CL[facility] [id number] [place] [address] [place] Anion gap [Moles/Vol] 13 mmol/L Normal 8-15 [facility] Comment on above: Order Comment: Speci men Type: BLOOD SPECIMENOrdering Facility: [facility] Address: [address] [place] [address] Performed By: #### 2 4323-8, [id number] ####[facility] LABCLIA [id number] [place] [address] [place] AST [Catalytic activity/Vol] 18 U/L Normal 13-[address] [facility] Comment on above: Order Comment: Speci men Type: BLOOD SPECIMENOrdering Facility: [facility] Address: [address] [place] [address] Performed By: #### 2 4323-8, [id number] ####[facility]CL[facility] [id number] [place] [address] [place] Bilirubin [Mass/Vol] 0.2 mg/dL Normal 0.2-1.3 [facility] Comment on above: Order Comment: Speci men Type: BLOOD SPECIMENOrdering Facility: [facility] Address: [address] [place] [address] Performed By: #### 2 4323-8, [id number] ####[facility]CL[facility] [id number] [place] [address] [place] Calcium [Mass/Vol] 9.7 mg/dL Normal 8.5-10.2 [facility] Comment on above: Order Comment: Speci men Type: BLOOD SPECIMENOrdering Facility: [facility] Address: [address] [place] [address] Performed By: #### 2 4323-8, [id number] ####[facility]CL[facility] [id number] [place] [address] [place] Chloride [Moles/Vol] 101 mmol/L Normal 98-107 [facility] Comment on above: Order Comment: Speci men Type: BLOOD SPECIMENOrdering Facility: [facility] Address: [address] [place] [address] Performed By: #### 2 4323-8, [id number] ####[facility]CL[facility] [id number] [place] [address] [place] CO2 [Moles/Vol] 26 mmol/L Normal 22-[address] [facility] Comment on above: Order Comment: Speci men Type: BLOOD SPECIMENOrdering Facility: [facility] Address: [address] [place] [address] Performed By: #### 2 4323-8, [id number] ####[facility] LABCLIA [id number] [place] [id number] [place] Creatinine [Mass/Vol] 1.01 mg/dL High 0.58-0.96 [facility] Comment on above: Order Comment: Speci men Type: BLOOD SPECIMENOrdering Facility: [facility] Address: [address] [place] [address] Performed By: #### 2 4323-8, [id number] ####[facility]CL[facility] [id number] [place] [address] [place] eGFRcr SerPlBld CKD-EPI 2020 65 mL/min/1.73m??? Normal >=[address] [facility] Comment on above: Order Comment: Altafi men Type: BLOOD SPECIMENOrdering Facility: [facility] Address: [address] [place] [address] Result Comment: Zaria mated Glomerular Filtration Rate [...] actual GFR. Performed By: #### 2 4323-8, [id number] ####[facility]CL[facility] [id number] [place] [address] [place] Glucose [Mass/Vol] 116 mg/dL High 74-99 [facility] Comment on above: Order Comment: Speci men Type: BLOOD SPECIMENOrdering Facility: [facility] Address: [address] [place] [address] Result Comment: The [place] [employer] (ADA) provides guidance for cutoff [...] Standards of Medical Care in Diabetes 2016, [place] [employer]. Diabetes Care. 2016.39(Suppl 1). Performed By: #### 2 4323-8, [id number] ####[facility]CL[facility] [id number] [place] [address] [place] Potassium [Moles/Vol] 4.1 mmol/L Normal 3.7-5.1 [facility] Comment on above: Order Comment: Speci men Type: BLOOD SPECIMENOrdering Facility: [facility] Address: [address] [place] [address] Performed By: #### 2 4323-8, [id number] ####[facility]CL[facility] [id number] [place] [address] [place] Protein [Mass/Vol] 7.4 g/dL Normal 6.3-8.0 [facility] Comment on above: Order Comment: Speci men Type: BLOOD SPECIMENOrdering Facility: [facility] Address: [address] [place] [address] Performed By: #### 2 4323-8, [id number] ####[facility]CL[facility] [id number] [place] [address] [place] Sodium [Moles/Vol] 140 mmol/L Normal 136-144 [facility] Comment on above: Order Comment: Speci men Type: BLOOD SPECIMENOrdering Facility: [facility] Address: [address] [place] [address] Performed By: #### 2 4323-8, [id number] ####[facility] LABCLIA [id number] [place] [address] [place] Urea nitrogen [Mass/Vol] 15 mg/dL Normal 7-[address] [facility] Comment on above: Order Comment: Speci men Type: BLOOD SPECIMENOrdering Facility: [facility] Address: [address] [place] [address] Performed By: #### 2 4323-8, [id number] ####[facility] LABCLIA [id number] [place] [id number] [place] RUL24cb 07-05-2025 ECG[address] [facility] ED PROV NOTEon 07-05-2025 ED PROV NOTE Normal [facility] ED Triage Noteon 07-05-2025 ED Triage Note Normal [facility] HIGH SENSITIVITY TROPONIN T (INITIAL)on 07-05-2025 Troponin T.cardiac High sensitivity method [Mass/Vol] <6 Normal <[address] [facility] Comment on above: Order Comment: Speci men Type: BLOOD SPECIMENOrdering Facility: [facility] Address: [address] [place] [address] Performed By: #### 2 4323-8, [id number] ####[facility] LABCLIA [id number] [place] [id number] [facility] HIGH SENSITIVITY TROPONIN T (SECOND)on 07-05-2025 Troponin T.cardiac High sensitivity method [Mass/Vol] <6 Normal <[address] [facility] Comment on above: Order Comment: Speci men Type: BLOOD SPECIMENOrdering Facility: [facility] Address: [address] [place] [address] Performed By: #### L [id number] ####[facility] LABCLIA [id number] [place] [address] [place] PT panel Coag (PPP)on 2024 INR Coag (PPP) [Relative time] {INR} Low 0.9-1.[address] [facility] Comment on above: Order Comment: Speci men Type: BLOOD SPECIMENOrdering Facility: [facility] Address: [address] [place] [address] Result Comment: Kelly min K Antagonist (VKA) Therapeutic Range: INR 2 to 3 (Target INR of 2.5)Note: For patients treated with VKA drugs, such as warfarin, the [place] [employer] 2012 Guideline recommends [...] al. Chest 2012, 141:7S-47SNishmaranda RA, et al. [facility] 2017, 70: 252-289 Performed By: #### 3 4528-0, 19449-7 ####[facility] LABCLIA [id number] [place] [address] [place] PT Coag (PPP) [Time] 9.9 s Normal 9.7-13.0 [facility] Comment on above: Order Comment: Brandan eaton Type: BLOOD SPECIMENOrdering Facility: [facility] Address: [address] [place] [address] Performed By: #### 3 4528-0, 52857-0 ####[facility] LABCLIA [id number] [place] [address] [place] SEPSIS LACTATE W/ REFLEX (IN ITIAL)on 07-05-2025 Lactate [Moles/Vol] 1.9 mmol/L Normal <=2.0 [facility] Comment on above: Order Comment: Brandan eaton Type: BLOOD SPECIMENOrdering Facility: [facility] Address: [address] [place] [address] Performed By: #### S LACTR ####[facility] LABCLIA [id number] [place] [address] [place] XR CHEST 1V FRONTAL PORTon 1 09-04-2024 XR CHEST 1V FRONTAL PORT Normal [facility] aPTT PPPon 07-05-2025 aPTT Coag (PPP) [Time] 22.4 s Low 23.0-32.4 [facility] Comment on above: Order Comment: Speci men Type: BLOOD SPECIMENOrdering Facility: [facility] Address: [address] [place] [address] Result Comment[facility] Performed By: #### 3 4528-0, 98621-6 ####[facility] LABCLIA [id number] [place] [address] [place] CNPTOUTREACHon 07-02-2025 CNPTOUTREACH Normal [facility] CBC panel Auto (Bld)on 07-01 Erythrocyte distribution width (RBC) [Ratio] 13.1 % Normal 11.5-15.[address] [facility] Comment on above: Order Comment: Speci men Type: BLOOD SPECIMENOrdering Facility: [facility] Address: [address] [place] [address] Performed By: #### 5 8410-2 ####[facility] LABCLIA [id number] [place] [address] [place] Hematocrit (Bld) [Volume fraction] 30.2 % Low 36.0-46.[address] [facility] Comment on above: Order Comment: Speci men Type: BLOOD SPECIMENOrdering Facility: [facility] Address: [address] [place] [address] Performed By: #### 5 8410-2 ####[facility] LABCLIA [id number] [place] [address] [place] Hemoglobin (Bld) [Mass/Vol] 9.9 g/dL Low 11.5-15.[address] [facility] Comment on above: Order Comment: Speci men Type: BLOOD SPECIMENOrdering Facility: [facility] Address: [address] [place] [address] Performed By: #### 5 8410-2 ####[facility] LABCLIA [id number] [place] [address] [place] MCH (RBC) [Entitic mass] 29.5 pg Normal 26.0-34.[address] [facility] Comment on above: Order Comment: Speci men Type: BLOOD SPECIMENOrdering Facility: [facility] Address: [address] [place] [address] Performed By: #### 5 8410-2 ####[facility] LABCLIA [id number] [place] [address] [place] MCHC (RBC) [Mass/Vol] 32.8 g/dL Normal 30.5-36.0 [facility] Comment on above: Order Comment: Speci men Type: BLOOD SPECIMENOrdering Facility: [facility] Address: [address] [place] [address] Performed By: #### 5 8410-2 ####[facility] LABCLIA [id number] [place] [address] [place] MCV (RBC) [Entitic vol] 89.9 fL Normal 80.0-100.0 [facility] Comment on above: Order Comment: Speci men Type: BLOOD SPECIMENOrdering Facility: [facility] Address: [address] [place] [address] Performed By: #### 5 8410-2 ####[facility] LABCLIA [id number] [place] [address] [place] Nucleated RBC (Bld) [#/Vol] 10*3/uL Normal <0.[address] [facility] Comment on above: Order Comment: Speci men Type: BLOOD SPECIMENOrdering Facility: [facility] Address: [address] [place] [address] Performed By: #### 5 8410-2 ####[facility] LABCLIA [id number] [place] [address] [place] Platelet mean volume (Bld) [Entitic vol] 10.6 fL Normal 9.0-12.[address] [facility] Comment on above: Order Comment: Speci men Type: BLOOD SPECIMENOrdering Facility: [facility] Address: [address] [place] [address] Performed By: #### 5 8410-2 ####[facility] LABCLIA [id number] [place] [address] [place] Platelets (Bld) [#/Vol] 205 10*3/uL Normal 150-[address] [facility] Comment on above: Order Comment: Speci men Type: BLOOD SPECIMENOrdering Facility: [facility] Address: [address] [place] [address] Performed By: #### 5 8410-2 ####[facility] LABCLIA [id number] [place] [id number] [place] RBC (Bld) [#/Vol] 3.36 10*6/uL Low 3.90-5.20 [facility] Comment on above: Order Comment: Speci men Type: BLOOD SPECIMENOrdering Facility: [facility] Address: [address] [place] [address] Performed By: #### 5 8410-2 ####[facility] LABCLIA [id number] [place] [address] [place] WBC (Bld) [#/Vol] 4.95 10*3/uL Normal 3.70-11.00 [facility] Comment on above: Order Comment: Speci men Type: BLOOD SPECIMENOrdering Facility: [facility] Address: [address] [place] [address] Performed By: #### 5 8410-2 ####[facility] LABCLIA [id number] [place] [address] [place] CNDSon 07-01-2025 CNDS Normal [facility] Comprehensive metabolic 2000 panelon 07-01-2025 Albumin [Mass/Vol] 3.5 g/dL Low 3.9-4.9 [facility] Comment on above: Order Comment: Speci men Type: BLOOD SPECIMENOrdering Facility: [facility] Address: [address] [place] [address] Performed By: #### 2 4323-8, 35863-3, 2777-1 ####[facility] LABCLIA [id number] [place] [address] [place] ALP [Catalytic activity/Vol] 98 U/L Normal 34-[address] [facility] Comment on above: Order Comment: Speci men Type: BLOOD SPECIMENOrdering Facility: [facility] Address: [address] [place] [address] Performed By: #### 2 4323-8, , 2776-09 ####[facility] LABCLIA [id number] [place] [id number] [place] ALT [Catalytic activity/Vol] 12 U/L Normal 7-[address] [facility] Comment on above: Order Comment: Speci men Type: BLOOD SPECIMENOrdering Facility: [facility] Address: [address] [place] [address] Performed By: #### 2 4323-8, , 2776-09 ####[facility] LABCLIA [id number] [place] [address] [place] Anion gap [Moles/Vol] 7 mmol/L Low 8-15 [facility] Comment on above: Order Comment: Speci men Type: BLOOD SPECIMENOrdering Facility: [facility] Address: [address] [place] [address] Performed By: #### 2 4323-8, , 2776-09 ####[facility] LABCLIA [id number] [place] [address] [place] AST [Catalytic activity/Vol] 17 U/L Normal 13-[address] [facility] Comment on above: Order Comment: Speci men Type: BLOOD SPECIMENOrdering Facility: [facility] Address: [address] [place] [address] Performed By: #### 2 4323-8, , 2776-09 ####[facility] LABCLIA [id number] [place] [id number] [place] Bilirubin [Mass/Vol] mg/dL Low 0.2-1.3 [facility] Comment on above: Order Comment: Speci men Type: BLOOD SPECIMENOrdering Facility: [facility] Address: [address] [place] [address] Performed By: #### 2 4323-8, , 2776-09 ####[facility] LABCLIA [id number] [place] [address] [place] Calcium [Mass/Vol] 8.6 mg/dL Normal 8.5-10.2 [facility] Comment on above: Order Comment: Speci men Type: BLOOD SPECIMENOrdering Facility: [facility] Address: [address] [place] [address] Performed By: #### 2 4323-8, , 2776-09 ####[facility] LABCLIA [id number] [place] [address] [place] Chloride [Moles/Vol] 112 mmol/L High 98-107 [facility] Comment on above: Order Comment: Speci men Type: BLOOD SPECIMENOrdering Facility: [facility] Address: [address] [place] [address] Performed By: #### 2 432-8, , 2776-09 ####[facility] LABCLIA [id number] [place] [address] [place] CO2 [Moles/Vol] 24 mmol/L Normal 22-[address] [facility] Comment on above: Order Comment: Speci men Type: BLOOD SPECIMENOrdering Facility: [facility] Address: [address] [place] [address] Performed By: #### 2 4323-8, , 2776-09 ####[facility] LABCLIA [id number] [place] [id number] [place] Creatinine [Mass/Vol] 0.86 mg/dL Normal 0.58-0.96 [facility] Comment on above: Order Comment: Speci men Type: BLOOD SPECIMENOrdering Facility: [facility] Address: [address] [place] [address] Performed By: #### 2 4323-8, , 2776-09 ####[facility] LABCLIA [id number] [address] [place] eGFRcr SerPlBld CKD-EPI 2020 79 mL/min/1.73m??? Normal >=[address] [facility] Comment on above: Order Comment: Brandan eaton Type: BLOOD SPECIMENOrdering Facility: [facility] Address: [address] [place] [address] Result Comment: Zaria mated Glomerular Filtration Rate [...] actual GFR. Performed By: #### 2 4323-8, 91495-7, 7- ####[facility] LABCLIA [id number] [place] [address] [place] Glucose [Mass/Vol] 87 mg/dL Normal 74-99 [facility] Comment on above: Order Comment: Brandan eaton Type: BLOOD SPECIMENOrdering Facility: [facility] Address: [address] [place] [address] Result Comment: The [place] [employer] (ADA) provides guidance for cutoff [...] Standards of Medical Care in Diabetes 2016, [place] [employer]. Diabetes Care. 2016.39(Suppl 1). Performed By: #### 2 4323-8, 96544-3, 2777- ####[facility] LABCLIA [id number] [place] [id number] [place] Potassium [Moles/Vol] 4.0 mmol/L Normal 3.7-5.1 [facility] Comment on above: Order Comment: Speci men Type: BLOOD SPECIMENOrdering Facility: [facility] Address: [address] [place] [address] Performed By: #### 2 4323-8, , 2776-09 ####[facility] LABCLIA [id number] [place] [address] [place] Protein [Mass/Vol] 5.4 g/dL Low 6.3-8.0 [facility] Comment on above: Order Comment: Speci men Type: BLOOD SPECIMENOrdering Facility: [facility] Address: [address] [place] [address] Performed By: #### 2 4323-8, , 2776-09 ####[facility] LABCLIA [id number] [place] [id number] [place] Sodium [Moles/Vol] 143 mmol/L Normal 136-144 [facility] Comment on above: Order Comment: Speci men Type: BLOOD SPECIMENOrdering Facility: [facility] Address: [address] [place] [address] Performed By: #### 2 4323-8, , 2776-09 ####[facility] LABCLIA [id number] [place] [address] [place] Urea nitrogen [Mass/Vol] 9 mg/dL Normal 7-[address] [facility] Comment on above: Order Comment: Speci men Type: BLOOD SPECIMENOrdering Facility: [facility] Address: [address] [place] [address] Performed By: #### 2 4323-8, , 2776-09 ####[facility] LABCLIA [id number] [place] [id number] [place] ED NOTEon 07-01-2025 ED NOTE HNO ID: [id number] Author: ALICE MARTINEZ LPN Service: Emergency Medicine Author Type: Licensed Nurse Type: ED Notes Filed: 07/01/2025 15:13 Note Text: Pt left AMA signed form stated a few times her ride was outside. Normal [facility] ED NOTE HNO ID: [id number] Author: KIMBERLEY HINDS RN Service: ? Author Type: Registered Nurse Type: ED Notes Filed: 07/01/2025 03:35 Note Text: Report to BRITTANY Murphy. Normal [facility] Magnesium SerPl-mCncon 07-01 Magnesium [Mass/Vol] 2.0 mg/dL Normal 1.7-2.3 [facility] Comment on above: Order Comment: Brandan eaton Type: BLOOD SPECIMENOrdering Facility: [facility] Address: [address] [place] [address] Performed By: #### 2 4323-8, 03661-9, 2777-1 ####[facility] LABCLIA [id number] [address] [facility] PT panel Coag (PPP)on 2024 INR Coag (PPP) [Relative time] 1.0 {INR} Normal 0.9-1.[address] [facility] Comment on above: Order Comment: Brandan eaton Type: BLOOD SPECIMENOrdering Facility: [facility] Address: [address] [place] [address] Result Comment: Kelly min K Antagonist (VKA) Therapeutic Range: INR 2 to 3 (Target INR of 2.5)Note: For patients treated with VKA drugs, such as warfarin, the [place] [employer] 2012 Guideline recommends [...] al. Chest 2012, 141:7S-47SNishimura RA, et al. [facility] 2017, 70: 252-289 Performed By: #### 1 4979-9, 14422-3 ####[facility] LABCLIA [id number] [place] [id number] [place] PT Coag (PPP) [Time] 10.3 s Normal 9.7-13.0 [facility] Comment on above: Order Comment: Speci men Type: BLOOD SPECIMENOrdering Facility: [facility] Address: [address] [place] [address] Performed By: #### 1 4979-9, 55803-2 ####[facility] LABCLIA [id number] [place] [address] [place] Phosphate SerPl-mCncon 07-01 Phosphate [Mass/Vol] 3.6 mg/dL Normal 2.7-4.8 [facility] Comment on above: Order Comment: Speci men Type: BLOOD SPECIMENOrdering Facility: [facility] Address: [address] [place] [address] Performed By: #### 2 4323-8, 61133-6, 2777-1 ####[facility] [id number] [address] [place] aPTT PPPon 07-01-2025 aPTT Coag (PPP) [Time] s Low 23.0-32.4 [facility] Comment on above: Order Comment: Speci men Type: BLOOD SPECIMENOrdering Facility: [facility] Address: [address] [place] [address] Result Comment: Samp le checked for clot.Result rechecked. Performed By: #### 1 4979-9, 84084-6 ####[facility] LABIA [id number] [place] [address] [place] ALLIED HEALTHon 06-30-2025 ALLIED HEALTH Normal [facility] CBC W Auto Differential pane l (Bld)on 06-30-2025 Basophils (Bld) [#/Vol] 0.03 10*3/uL Normal <0.[address] [facility] Comment on above: Order Comment: Speci men Type: BLOOD SPECIMENOrdering Facility: [facility] Address: [address] [place] [address] Performed By: #### 5 7021-8 ####[facility] LABCLIA [id number] [place] [address] [place] Basophils/100 WBC (Bld) 0.5 % Normal [facility] Comment on above: Order Comment: Speci men Type: BLOOD SPECIMENOrdering Facility: [facility] Address: [address] [place] [address] Performed By: #### 5 7021-8 ####[facility] LABCLIA [id number] [place] [address] [place] Differential cell count method Nom (Bld) Auto Normal [facility] Comment on above: Order Comment: Speci men Type: BLOOD SPECIMENOrdering Facility: [facility] Address: [address] [place] [address] Performed By: #### 5 7021-8 ####[facility] LABCLIA [id number] [place] [address] [place] Eosinophils (Bld) [#/Vol] 0.16 10*3/uL Normal <0.[address] [facility] Comment on above: Order Comment: Speci men Type: BLOOD SPECIMENOrdering Facility: [facility] Address: [address] [place] [address] Performed By: #### 5 7021-8 ####[facility] LABCLIA [id number] [address] [place] Eosinophils/100 WBC (Bld) 2.9 % Normal [facility] Comment on above: Order Comment: Speci men Type: BLOOD SPECIMENOrdering Facility: [facility] Address: [address] [place] [address] Performed By: #### 5 7021-8 ####[facility] LABCLIA [id number] [place] [address] [place] Erythrocyte distribution width (RBC) [Ratio] 13.2 % Normal 11.5-15.[address] [facility] Comment on above: Order Comment: Speci men Type: BLOOD SPECIMENOrdering Facility: [facility] Address: [address] [place] [address] Performed By: #### 5 7021-8 ####[facility] LABCLIA [id number] [place] [address] [place] Hematocrit (Bld) [Volume fraction] 33.8 % Low 36.0-46.[address] [facility] Comment on above: Order Comment: Speci men Type: BLOOD SPECIMENOrdering Facility: [facility] Address: [address] [place] [address] Performed By: #### 5 7021-8 ####[facility] LABCLIA [id number] [place] [address] [place] Hemoglobin (Bld) [Mass/Vol] 10.7 g/dL Low 11.5-15.[address] [facility] Comment on above: Order Comment: Speci men Type: BLOOD SPECIMENOrdering Facility: [facility] Address: [address] [place] [address] Performed By: #### 5 7021-8 ####[facility] LABCLIA [id number] [place] [address] [place] Immature granulocytes (Bld) [#/Vol] 10*3/uL Normal <0.[address] [facility] Comment on above: Order Comment: Speci men Type: BLOOD SPECIMENOrdering Facility: [facility] Address: [address] [place] [address] Performed By: #### 5 7021-8 ####[facility] LABCLIA [id number] [address] [place] Immature granulocytes/100 WBC (Bld) 0.4 % Normal [facility] Comment on above: Order Comment: Speci men Type: BLOOD SPECIMENOrdering Facility: [facility] Address: [address] [place] [address] Performed By: #### 5 7021-8 ####[facility] LABCLIA [id number] [place] [address] [place] Lymphocytes (Bld) [#/Vol] 0.90 10*3/uL Low 1.00-4.[address] [facility] Comment on above: Order Comment: Speci men Type: BLOOD SPECIMENOrdering Facility: [facility] Address: [address] [place] [address] Performed By: #### 5 7021-8 ####[facility] LABCLIA [id number] [place] [address] [place] Lymphocytes/100 WBC (Bld) 16.1 % Normal [facility] Comment on above: Order Comment: Speci men Type: BLOOD SPECIMENOrdering Facility: [facility] Address: [address] [place] [address] Performed By: #### 5 7021-8 ####[facility] LABCLIA [id number] [place] [address] [place] MCH (RBC) [Entitic mass] 29.3 pg Normal 26.0-34.[address] [facility] Comment on above: Order Comment: Speci men Type: BLOOD SPECIMENOrdering Facility: [facility] Address: [address] [place] [address] Performed By: #### 5 7021-8 ####[facility] LABCLIA [id number] [address] [place] MCHC (RBC) [Mass/Vol] 31.7 g/dL Normal 30.5-36.0 [facility] Comment on above: Order Comment: Speci men Type: BLOOD SPECIMENOrdering Facility: [facility] Address: [address] [place] [address] Performed By: #### 5 7021-8 ####[facility] LABCLIA [id number] [place] [address] [place] MCV (RBC) [Entitic vol] 92.6 fL Normal 80.0-100.0 [facility] Comment on above: Order Comment: Speci men Type: BLOOD SPECIMENOrdering Facility: [facility] Address: [address] [place] [address] Performed By: #### 5 7021-8 ####[facility] LABCLIA [id number] [place] [address] [place] Monocytes (Bld) [#/Vol] 0.70 10*3/uL Normal <0.[address] [facility] Comment on above: Order Comment: Speci men Type: BLOOD SPECIMENOrdering Facility: [facility] Address: [address] [place] [address] Performed By: #### 5 7021-8 ####[facility] LABCLIA [id number] [place] [address] [place] Monocytes/100 WBC (Bld) 12.5 % Normal [facility] Comment on above: Order Comment: Speci men Type: BLOOD SPECIMENOrdering Facility: [facility] Address: [address] [place] [address] Performed By: #### 5 7021-8 ####[facility] LABCLIA [id number] [place] [address] [place] Neutrophils (Bld) [#/Vol] 3.77 10*3/uL Normal 1.45-7.[address] [facility] Comment on above: Order Comment: Speci men Type: BLOOD SPECIMENOrdering Facility: [facility] Address: [address] [place] [address] Performed By: #### 5 7021-8 ####[facility] LABCLIA [id number] [address] [place] Neutrophils/100 WBC (Bld) 67.6 % Normal [facility] Comment on above: Order Comment: Speci men Type: BLOOD SPECIMENOrdering Facility: [facility] Address: [address] [place] [address] Performed By: #### 5 7021-8 ####[facility] LABCLIA [id number] [place] [address] [place] Nucleated RBC (Bld) [#/Vol] 10*3/uL Normal <0.[address] [facility] Comment on above: Order Comment: Speci men Type: BLOOD SPECIMENOrdering Facility: [facility] Address: [address] [place] [address] Performed By: #### 5 7021-8 ####[facility] LABCLIA [id number] [place] [address] [place] Nucleated RBC/100 WBC (Bld) [Ratio] 0.0 /100 WBC Normal [facility] Comment on above: Order Comment: Speci men Type: BLOOD SPECIMENOrdering Facility: [facility] Address: [address] [place] [address] Performed By: #### 5 7021-8 ####[facility] LABCLIA [id number] [place] [address] [place] Platelet mean volume (Bld) [Entitic vol] 11.4 fL Normal 9.0-12.[address] [facility] Comment on above: Order Comment: Speci men Type: BLOOD SPECIMENOrdering Facility: [facility] Address: [address] [place] [address] Performed By: #### 5 7021-8 ####[facility] LABCLIA [id number] [place] [address] [place] Platelets (Bld) [#/Vol] 291 10*3/uL Normal 150-[address] [facility] Comment on above: Order Comment: Speci men Type: BLOOD SPECIMENOrdering Facility: [facility] Address: [address] [place] [address] Performed By: #### 5 7021-8 ####[facility] LABCLIA [id number] [place] [address] [place] RBC (Bld) [#/Vol] 3.65 10*6/uL Low 3.90-5.20 [facility] Comment on above: Order Comment: Speci men Type: BLOOD SPECIMENOrdering Facility: [facility] Address: [address] [place] [address] Performed By: #### 5 7021-8 ####[facility] LABCLIA [id number] [place] [address] [place] WBC (Bld) [#/Vol] 5.58 10*3/uL Normal 3.70-11.00 [facility] Comment on above: Order Comment: Speci men Type: BLOOD SPECIMENOrdering Facility: [facility] Address: [address] [place] [address] Performed By: #### 5 7021-8 ####[facility] LABCLIA [id number] [place] [address] [place] CONSULTon 06-30-2025 CONSULT Normal [facility] CTA HEAD WO/W IVCONon 2024 CTA HEAD WO/W IVCON Normal [facility] CTA NECK W IVCONon CTA NECK W IVCON Normal [facility] Comprehensive metabolic 2000 panelon 06-30-2025 Albumin [Mass/Vol] 4.0 g/dL Normal 3.9-4.9 [facility] Comment on above: Order Comment: Speci men Type: BLOOD SPECIMENOrdering Facility: [facility] Address: [address] [place] [address] Performed By: #### 2 4323-8, [id number], , 29125-2 ####[facility] LABCLIA [id number] [place] [address] [place] ALP [Catalytic activity/Vol] 115 U/L Normal 34-[address] [facility] Comment on above: Order Comment: Speci men Type: BLOOD SPECIMENOrdering Facility: [facility] Address: [address] [place] [address] Performed By: #### 2 4323-8, [id number], 24761-0, 83257-1 ####[facility] LABCLIA [id number] [place] [id number] [place] ALT [Catalytic activity/Vol] 15 U/L Normal 7-[address] [facility] Comment on above: Order Comment: Speci men Type: BLOOD SPECIMENOrdering Facility: [facility] Address: [address] [place] [address] Performed By: #### 2 4323-8, [id number], , 80512-0 ####[facility] LABCLIA [id number] [place] [address] [place] Anion gap [Moles/Vol] 8 mmol/L Normal 8-15 [facility] Comment on above: Order Comment: Speci men Type: BLOOD SPECIMENOrdering Facility: [facility] Address: [address] [place] [address] Performed By: #### 2 4323-8, [id number], , 57721-6 ####[facility] LABCLIA [id number] [place] [address] [place] AST [Catalytic activity/Vol] 21 U/L Normal 13-[address] [facility] Comment on above: Order Comment: Speci men Type: BLOOD SPECIMENOrdering Facility: [facility] Address: [address] [place] [address] Result Comment: Resu lts may be falsely increased due to interference from hemolysis. Suggest reorder as clinically indicated. Performed By: #### 2 4323-8, [id number], , 36739-6 ####[facility] LABCLIA [id number] [place] [address] [place] Bilirubin [Mass/Vol] mg/dL Low 0.2-1.3 [facility] Comment on above: Order Comment: Speci men Type: BLOOD SPECIMENOrdering Facility: [facility] Address: [address] [place] [address] Performed By: #### 2 4323-8, [id number], , 65425-5 ####[facility] LABCLIA [id number] [place] [id number] [place] Calcium [Mass/Vol] 9.4 mg/dL Normal 8.5-10.2 [facility] Comment on above: Order Comment: Speci men Type: BLOOD SPECIMENOrdering Facility: [facility] Address: [address] [place] [address] Performed By: #### 2 4323-8, [id number], 14900-5, 14965-0 ####[facility] LABCLIA [id number] [place] [address] [place] Chloride [Moles/Vol] 105 mmol/L Normal 98-107 [facility] Comment on above: Order Comment: Speci men Type: BLOOD SPECIMENOrdering Facility: [facility] Address: [address] [place] [address] Performed By: #### 2 4323-8, [id number], , 38619-2 ####[facility] LABCLIA [id number] [place] [address] [place] CO2 [Moles/Vol] 24 mmol/L Normal 22-[address] [facility] Comment on above: Order Comment: Speci men Type: BLOOD SPECIMENOrdering Facility: [facility] Address: [address] [place] [address] Performed By: #### 2 4323-8, [id number], , 57931-1 ####[facility] LABCLIA [id number] [place] [address] [place] Creatinine [Mass/Vol] 0.82 mg/dL Normal 0.58-0.96 [facility] Comment on above: Order Comment: Speci men Type: BLOOD SPECIMENOrdering Facility: [facility] Address: [address] [place] [address] Performed By: #### 2 4323-8, [id number], 66863-0, 22851-6 ####[facility] LABCLIA [id number] [place] [address] [place] eGFRcr SerPlBld CKD-EPI 2021 84 mL/min/1.73m??? Normal >=[address] [facility] Comment on above: Order Comment: Speci men Type: BLOOD SPECIMENOrdering Facility: [facility] Address: [address] [place] [address] Result Comment: Zaria mated Glomerular Filtration Rate [...] actual GFR. Performed By: #### 2 4323-8, [id number], 11043-6, 29249-0 ####[facility] LABCLIA [id number] [place] [id number] [place] Glucose [Mass/Vol] 84 mg/dL Normal 74-99 [facility] Comment on above: Order Comment: Specemily men Type: BLOOD SPECIMENOrdering Facility: [facility] Address: [address] [place] [address] Result Comment: The [place] [employer] (ADA) provides guidance for cutoff [...] Standards of Medical Care in Diabetes 2016, [place] [employer]. Diabetes Care. 2016.39(Suppl 1). Performed By: #### 2 4323-8, [id number], 10441-0, 02589-0 ####[facility] LABCLIA [id number] [place] [id number] [place] Potassium [Moles/Vol] 4.7 mmol/L Normal 3.7-5.1 [facility] Comment on above: Order Comment: Specemily men Type: BLOOD SPECIMENOrdering Facility: [facility] Address: [address] [place] [address] Performed By: #### 2 4323-8, [id number], 64883-3, 97604-3 ####[facility] LABCLIA [id number] [place] [address] [place] Protein [Mass/Vol] 6.7 g/dL Normal 6.3-8.0 [facility] Comment on above: Order Comment: Speci men Type: BLOOD SPECIMENOrdering Facility: [facility] Address: [address] [place] [address] Performed By: #### 2 4323-8, [id number], 03251-3, 77139-7 ####[facility] LABCLIA [id number] [place] [id number] [place] Sodium [Moles/Vol] 137 mmol/L Normal 136-144 [facility] Comment on above: Order Comment: Speci men Type: BLOOD SPECIMENOrdering Facility: [facility] Address: [address] [place] [address] Performed By: #### 2 4323-8, [id number], 78371-1, 11863-4 ####[facility] LABCLIA [id number] [place] [id number] [place] Urea nitrogen [Mass/Vol] 12 mg/dL Normal 7-[address] [facility] Comment on above: Order Comment: Speci men Type: BLOOD SPECIMENOrdering Facility: [facility] Address: [address] [place] [address] Performed By: #### 2 4323-8, [id number], 39545-6, 75055-1 ####[facility] LABCLIA [id number] [place] [address] [place] ED PROV NOTEon 06-30-2025 ED PROV NOTE Normal [facility] ED PROV NOTE Normal [facility] HIGH SENSITIVITY TROPONIN T (INITIAL)on 06-30-2025 Troponin T.cardiac High sensitivity method [Mass/Vol] <6 Normal <[address] [facility] Comment on above: Order Comment: Speci men Type: BLOOD SPECIMENOrdering Facility: [facility] Address: [address] [place] [address] Performed By: #### 2 4323-8, [id number], 75376-2, 71851-8 ####[facility] LABCLIA [id number] [place] [address] [place] HIGH SENSITIVITY TROPONIN T (SECOND)on 06-30-2025 Troponin T.cardiac High sensitivity method [Mass/Vol] <6 Normal <[address] [facility] Comment on above: Order Comment: Speci men Type: BLOOD SPECIMENOrdering Facility: [facility] Address: [address] [place] [address] Performed By: #### L [id number] ####[facility] LABIA [id number] [place] [address] [place] HISTORY PHYSICALon HISTORY PHYSICAL Normal [facility] MRA CAROTID WO/W IVCONon MRA CAROTID WO/W IVCON Normal [facility] MRI BRAIN WO IVCONon 025 MRI BRAIN WO IVCON Normal [facility] Magnesium SerPl-mCncon 06-30 Magnesium [Mass/Vol] 2.2 mg/dL Normal 1.7-2.3 [facility] Comment on above: Order Comment: Speci men Type: BLOOD SPECIMENOrdering Facility: [facility] Address: [address] [place] [address] Performed By: #### 2 4323-8, [id number], , 03051-8 ####[facility] LABCLIA [id number] [place] [address] [place] NT-proBNP SerPl-mCncon 06-30 Natriuretic peptide.B prohormone N-Terminal [Mass/Vol] 92 pg/mL Normal <[address] [facility] Comment on above: Order Comment: Speci men Type: BLOOD SPECIMENOrdering Facility: [facility] Address: [address] [place] [address] Performed By: #### 2 4323-8, [id number], , 21151-6 ####[facility] LABCLIA [id number] [address] [place] [facility] Absolute lymphocyte countOrd ered By: Renato Hanley on 06-29-2025 Lymphocytes Auto (Unsp spec) [#/Vol] 1.05 10*3/uL 0.83-4.51 [facility] Absolute neutrophil countOrd ered By: Renato Hanley on 06-29-2025 Neutrophils (Bld) [#/Vol] 4.5 10*3/uL 2.0-7.7 [facility] Anion gap in Serum or Plasma Ordered By: Renato Hanley on 06-29-2025 Anion gap [Moles/Vol] 9 mmol/L 01-14 [facility] Automated lymphocyte count a s percentage of total leukocytesOrdered By: Renato Hanley on 06-29-2025 Lymphocytes/100 WBC Auto (Unsp spec) 15.4 % Low 19- [facility] BUN/creatinine ratioOrdered By: Renato Hanley on 06-29-2025 Urea nitrogen/Creatinine [Mass ratio] 16.5 mg/mg 06-21 [facility] Basic Metabolic Profile (BMP )on 06-29-2025 BUN/CRE 16.5 RATIO Normal 06-21 [facility] Comment on above: Performed By: #### L 500.3400, L501.9520, L501.2450, L500.2500, L501.5200 #### [facility] [address] [place], [address] Calcium [Mass/Vol] 9.4 mg/dL Normal 7.6-11.0 [facility] Comment on above: Performed By: #### L 500.3400, L501.9520, L501.2450, L500.2500, L501.5200 #### [facility] [address] [place], [address] Chloride [Moles/Vol] 102 mmol/L Normal 98-108 [facility] Comment on above: Performed By: #### L 500.3400, L501.9520, L501.2450, L500.2500, L501.5200 #### [facility] [address] [place], [address] CO2 [Moles/Vol] 26.6 mmol/L Normal 21.0-32.0 [facility] Comment on above: Performed By: #### L 500.3400, L501.9520, L501.2450, L500.2500, L501.5200 #### [facility] [address] [place], [address] Creatinine [Mass/Vol] 1.01 mg/dL Normal 0.70-1.20 [facility] Comment on above: Performed By: #### L 500.3400, L501.9520, L501.2450, L500.2500, L501.5200 #### [facility] [address] [place], [address] ECRCL 54.95 ml/min Normal 50-250 [facility] Comment on above: Performed By: #### L 500.3400, L501.9520, L501.2450, L500.2500, L501.5200 #### [facility] [address] [place], [address] GAP 9 Normal 5-15 [facility] Comment on above: Performed By: #### L 500.3400, L501.9520, L501.2450, L500.2500, L501.5200 #### [facility] [address] [place], [address] GFR/1.73 sq M.predicted among non-blacks MDRD (S/P/Bld) [Vol rate/Area] 65 mL/min/{1.73_m2} Normal >60 [facility] Comment on above: Result Comment: mL/m in/1.73m2 CKD-EPI Creatinine Equation (2020) Performed By: #### L 500.3400, L501.9520, L501.2450, L500.2500, L501.5200 #### [facility] [address] [place], [address] Glucose [Mass/Vol] 97 mg/dL Normal 70-99 [facility] Comment on above: Performed By: #### L 500.3400, L501.9520, L501.2450, L500.2500, L501.5200 #### [facility] [address] [place], [address] Potassium [Moles/Vol] 4.4 mmol/L Normal 3.3-5.1 [facility] Comment on above: Performed By: #### L 500.3400, L501.9520, L501.2450, L500.2500, L501.5200 #### [facility] [address] [place], [address] Sodium [Moles/Vol] 138 mmol/L Normal 133-145 [facility] Comment on above: Performed By: #### L 500.3400, L501.9520, L501.2450, L500.2500, L501.5200 #### [facility] [address] [place], [address] Urea nitrogen [Mass/Vol] 17 mg/dL Normal 4-19 [facility] Comment on above: Performed By: #### L 500.3400, L501.9520, L501.2450, L500.2500, L501.5200 #### [facility] [address] [place], [address] Basophil percentageOrdered B y: Renato Hanley on 06-29-2025 Basophils/100 WBC (Bld) 0.4 % 0-1 [facility] Bilirubin Test strip Ql (U)O rdered By: Renato Hanley on 06-29-2025 Bilirubin Ql (U) Negative Negative [facility] Bilirubin directOrdered By: Renato Hanley on 06-29-2025 Bilirubin.direct [Mass/Vol] 0.10 mg/dL 0.00-0.30 [facility] Bilirubin, totalOrdered By: Renato Hanley on 06-29-2025 Bilirubin [Mass/Vol] 0.17 mg/dL 0.00-1.30 [facility] CBC W/Diff, Automatedon 06-03 Absolute Lymph 1.05 X10 3/uL Normal 0.83-4.51 [facility] Comment on above: Performed By: #### L 100.0100 ####[facility] [address] [place], [address] Absolute Neut 4.5 X10 3/uL Normal 2.0-7.7 [facility] Comment on above: Performed By: #### L 100.0100 ####[facility] [address] [place], [address] Basophils/100 WBC (Bld) 0.4 % Normal 0-1 [facility] Comment on above: Performed By: #### L 100.0100 ####[facility] [address] [place], [address] Eosinophils/100 WBC (Bld) 3.1 % Normal 0-5 [facility] Comment on above: Performed By: #### L 100.0100 ####[facility] [address] [place], [address] Erythrocyte distribution width (RBC) [Ratio] 13.1 % Normal 11.6-14.6 [facility] Comment on above: Performed By: #### L 100.0100 ####[facility] [address] [place], [address] Hematocrit (Bld) [Volume fraction] 34.1 % Low 37-47 [facility] Comment on above: Performed By: #### L 100.0100 ####[facility] [address] [place], [address] Hemoglobin (Bld) [Mass/Vol] 11.2 g/dL Low 12.0-15.0 [facility] Comment on above: Performed By: #### L 100.0100 ####[facility] [address] [place], [address] IG% 0.300 Normal 0.0-0.9 [facility] Comment on above: Result Comment: IG% - Immature Granulocytes (promyelocytes, myelocytes and metamyelocytes) > 1% indicates that a LEFT SHIFT is Present. Performed By: #### L 100.0100 ####[facility] [address] [place], [address] Lymphocytes/100 WBC (Bld) 15.4 % Low 19-41 [facility] Comment on above: Performed By: #### L 100.0100 ####[facility] [address] [place], [address] MCH (RBC) [Entitic mass] 29.6 pg Normal 27.0-32.0 [facility] Comment on above: Performed By: #### L 100.0100 ####[facility] [address] [place], [address] MCHC (RBC) [Mass/Vol] 32.8 g/dL Normal 32-36 [facility] Comment on above: Performed By: #### L 100.0100 ####[facility] [address] [place], [address] MCV (RBC) [Entitic vol] 90.0 fL Normal 81-99 [facility] Comment on above: Performed By: #### L 100.0100 ####[facility] [address] [place], [address] Monocytes/100 WBC (Bld) 14.2 % High 0-10 [facility] Comment on above: Performed By: #### L 100.0100 ####[facility] [address] [place], [address] Neutrophils/100 WBC (Bld) 66.6 % Normal 47-70 [facility] Comment on above: Performed By: #### L 100.0100 ####[facility] [address] [place], [address] Nucleated RBC (Bld) [#/Vol] 0 10*3/uL Normal 0-5 [facility] Comment on above: Performed By: #### L 100.0100 ####[facility] [address] [place], [address] Platelet mean volume (Bld) [Entitic vol] 10.4 fL Normal 6.2-12.0 [facility] Comment on above: Performed By: #### L 100.0100 ####[facility] [address] [place], [address] Platelets (Bld) [#/Vol] 311 10*3/uL Normal 150-450 [facility] Comment on above: Performed By: #### L 100.0100 ####[facility] [address] [place], [address] RBC (Bld) [#/Vol] 3.79 10*6/uL Low 4.2-5.4 [facility] Comment on above: Performed By: #### L 100.0100 ####[facility] [address] [place], [address] RDW SD 43.0 fl Normal 35.1-43.9 [facility] Comment on above: Performed By: #### L 100.0100 ####[facility] [address] [place], [address] WBC (Bld) [#/Vol] 6.8 10*3/uL Normal 4.4-11.0 [facility] Comment on above: Performed By: #### L 100.0100 ####[facility] [address] [place], [address] Carbon dioxide, total [Moles /volume] in Central venous bloodOrdered By: Renato Han[place] on 06-29-2025 CO2 [Moles/Vol] 26.6 mmol/L 21.0-32.0 [facility] Chest 1 View (Portable)on Chest 1 View (Portable) [facility] Imaging Services [address] [place] [address] Chest 1 View (Portable) MR#: [id number] Acct: [id number] Name: ALLIE LYNN ANN Rep #: [id number] : 1970 F 55 From: Fercho us MD PCP: Dr. Ifeoam Davis MD Status: REG ER Study: Chest 1 View (Portable) Date of Exam: 06/29/25 Exam# [id number] Ordering Dr: Renato Hanley DO PROCEDURE: CHEST [...] IMPRESSION: No acute cardiopulmonary process Reading Location: [place] [address] CC: Dr. Ifeoma Davis MD; Renato Hanley DO Crm Analyst: Signed Normal [facility] Chloride assayOrdered By: Mojgan Hanley on 06-29-2025 Chloride [Moles/Vol] 102 mmol/L 98-108 [facility] Emergency Department Summary on 06-29-2025 Emergency Department Summary [facility] Medical Records Department [address] [place] [address] Emergency Department Summary 06/29/25 MR#: [id number] Acct: [id number] Name: ALLIE LYNN ANN Rep #: [id number] : 1970 55 From: Renato Hanley DO [...] with the insomnia she just feels reported weak. She states this is a generalized weakness and not focal. She denies any fevers or chills. She denies any known sick contact. However because of the overall unwell feeling she is concerned there may be a developing infection and with this comes in for evaluation [facility] Medical History (Updated 06/29/25 @ 22:57 by [...] SUPPLMENT 06/11/25 Unknown History cell-Bifido 25 billion salz-WQW-yspir capsule cevimeline 30 mg capsule 1 cap [...] Ovarian c (more content not included)... Normal [facility] Eosinophil percentageOrdered By: Renato Hanley on 06-29-2025 Eosinophils/100 WBC (Bld) 3.1 % 0-5 [facility] Erythrocyte distribution wid th ratioOrdered By: Renato Hanley on 06-29-2025 Erythrocyte distribution width (RBC) [Ratio] 13.1 % 11.6-14.6 [facility] Erythrocyte distribution wid th standard deviationOrdered By: Renato Hanley on 06-29-2025 Erythrocyte distribution width (RBC) [Ratio] 43.0 fl 35.1-43.9 [facility] Glomerular filtration rate ( GFR) estimation/1.73 sq m using serum, plasma, or whole bOrdered By: Renato Hanley on 06-29-2025 GFR/1.73 sq M.predicted among non-blacks MDRD (S/P/Bld) [Vol rate/Area] 65 mL/min/{1.73_m2} >60 [facility] Comment on above: mL/min/1.73m2 CKD-EP I Creatinine Equation (2020) Hematocrit Auto (Bld) [Volum e fraction]Ordered By: Renato Hanley on 06-29-2025 Hematocrit (Bld) [Volume fraction] 34.1 % Low 37-47 [facility] Hemoglobin measurementOrdere d By: Renato Hanley on 06-29-2025 Hemoglobin (Bld) [Mass/Vol] 11.2 g/dL Low 12.0-15.0 [facility] Immature granulocytes/100 WB C Auto (Bld)Ordered By: Renato Hanley on 06-29-2025 Immature granulocytes/100 WBC (Bld) 0.300 % 0.0-0.9 [facility] Comment on above: IG% - Immature Granu locytes (promyelocytes, myelocytes and metamyelocytes) > 1% indicates that a LEFT SHIFT is Present. Influenza virus A and B and SARS-CoV-2 (COVID-19) and Respiratory syncytial virus RNAOrdered By: Renato Hanley on 06-29-2025 SARS-CoV-2 (COVID-19) RNA SUKUMAR+probe Ql (Unsp spec) [facility] SARS-CoV-2 (COVID-19) RNA SUKUMAR+probe Ql (Unsp spec) [facility] Ketones Test strip Ql (U)Ord ered By: Renato Hanley on 06-29-2025 Ketones Ql (U) Negative Negative [facility] Laboratory - Chemistry and C hemistry - challengeOrdered By: Renato Hanley on 06-29-2025 AST [Catalytic activity/Vol] 17 U/L <32 [facility] Lipaseon 06-29-2025 Lipase [Catalytic activity/Vol] 22 U/L Normal 13-75 [facility] Comment on above: Result Comment: Janet almanza note: LIPASE revised reference range effective 22. New Lipase methodology. Expected to produce lower values than the previous assay method. NEW Reference Range: 13 - 75 U/L Performed By: #### L 500.3400, L501.9520, L501.2450, L500.2500, L501.5200 #### [facility] [address] [facility] [place], [place], [id number] Lipase measurementOrdered By : Renato Hanley on 06-29-2025 Lipase [Catalytic activity/Vol] 22 U/L - [facility] Comment on above: Please note:LIPASE r evised reference range effective 22. New Lipase methodology. Expected to produce lower values than the previous assay method. NEW Reference Range: 13 - 75 U/L Liver Profileon 06-29-2025 Albumin [Mass/Vol] 4.1 g/dL Normal 3.5-5.0 [facility] Comment on above: Performed By: #### L 500.3400, L501.9520, L501.2450, L500.2500, L501.5200 #### [facility] [address] [place], [address] ALK PHOS 113 U/L High 35-104 [facility] Comment on above: Performed By: #### L 500.3400, L501.9520, L501.2450, L500.2500, L501.5200 #### [facility] [address] [place], [address] ALT [Catalytic activity/Vol] 16 U/L Normal <=34 [facility] Comment on above: Performed By: #### L 500.3400, L501.9520, L501.2450, L500.2500, L501.5200 #### [facility] [address] [place], [address] AST [Catalytic activity/Vol] 17 U/L Normal <=31 [facility] Comment on above: Performed By: #### L 500.3400, L501.9520, L501.2450, L500.2500, L501.5200 #### [facility] [address] [place], [address] Bilirubin [Mass/Vol] 0.17 mg/dL Normal 0.00-1.30 [facility] Comment on above: Performed By: #### L 500.3400, L501.9520, L501.2450, L500.2500, L501.5200 #### [facility] [address] [place], [address] Bilirubin.direct [Mass/Vol] 0.10 mg/dL Normal 0.00-0.30 [facility] Comment on above: Performed By: #### L 500.3400, L501.9520, L501.2450, L500.2500, L501.5200 #### [facility] [address] [place], [address] Globulin (S) [Mass/Vol] 2.5 g/dL Normal 2.2-4.2 [facility] Comment on above: Performed By: #### L 500.3400, L501.9520, L501.2450, L500.2500, L501.5200 #### [facility] [address] [place], [address] T PROT 6.5 g/dL Normal 5.9-8.4 [facility] Comment on above: Performed By: #### L 500.3400, L501.9520, L501.2450, L500.2500, L501.5200 #### [facility] [address] [place], [address] M100.678on 06-29-2025 M100.678 SARS-CoV-2 (COVID 19 ) Negative INFLUENZA A Negative INFLUENZA B Negative RSV PCR Negative Normal [facility] Comment on above: Performed By: #### M 100.678 ####[facility] [address] [place], [address] MCV (mean corpuscular volume ) determinationOrdered By: Renato [place] on 06-29-2025 MCV (RBC) [Entitic vol] 90.0 fL 81-99 [facility] Magnesiumon 06-29-2025 Magnesium [Mass/Vol] 2.1 mg/dL Normal 1.5-2.2 [facility] Comment on above: Performed By: #### L 500.3400, L501.9520, L501.2450, L500.2500, L501.5200 #### [facility] [address] [place], [address] Magnesium measurement (mass/ volume)Ordered By: Renato [place] on 06-29-2025 Magnesium (Unsp spec) [Mass/Vol] 2.1 mg/dL 1.5-2.2 [facility] Mean corpuscular hemoglobin (MCH) determinationOrdered By: Renato [place] on 06-29-2025 MCH (RBC) [Entitic mass] 29.6 pg 27.0-32.0 [facility] Mean corpuscular hemoglobin concentration (MCHC) determinationOrdered By: Renato [place] on 06-29-2025 MCHC (RBC) [Mass/Vol] 32.8 g/dL 32-36 [facility] Mean platelet volume determi nationOrdered By: Renato [place] on 06-29-2025 Platelet mean volume (Bld) [Entitic vol] 10.4 fL 6.2-12.0 [facility] Microscopic analysis of urin e for red blood cells (RBC)Ordered By: Renato [place] on 06-29-2025 Microscopic analysis of urine for red blood cells (RBC) 0-5 SEEN /hpf 0-5 [facility] Monocyte percentageOrdered B y: Renato [place] on 06-29-2025 Monocytes/100 WBC (Bld) 14.2 % High 0-10 [facility] Mucus LM Ql (Urine sed)Order ed By: Renato [place] on 06-29-2025 Mucus Ql (Urine sed) 0 SEEN /hpf [facility] Neutrophil percentageOrdered By: Renato [place] on 06-29-2025 Neutrophils/100 WBC (Bld) 66.6 % 47-70 [facility] Nitrite Test strip Ql (U)Ord ered By: Renato [place] on 06-29-2025 Nitrite Ql (U) Negative Negative [facility] Nucleated red blood cell per centageOrdered By: Renato [place] on 06-29-2025 Nucleated RBC/100 WBC (Bld) [Ratio] 0 % 0-5 [facility] Platelet countOrdered By: Mojgan [place] on 06-29-2025 Platelets (Bld) [#/Vol] 311 10*3/uL 150-450 [facility] Potassium measurement (mass/ volume)Ordered By: Renato [place] on 06-29-2025 Potassium (Unsp spec) [Mass/Vol] 4.4 mmol/L 3.3-5.1 [facility] Protein Test strip Ql (U)Ord ered By: Renato [place] on 06-29-2025 Protein Ql (U) Negative Negative [facility] RBC Auto (Bld) [#/Vol]Ordere d By: Renato [place] on 06-29-2025 RBC (Bld) [#/Vol] 3.79 10*6/uL Low 4.2-5.4 [facility] Serum creatinine measurement (mass/volume)Ordered By: Renato [place] on 06-29-2025 Creatinine [Mass/Vol] 1.01 mg/dL 0.70-1.20 [facility] Serum globulin measurementOr dered By: Renato [place] on 06-29-2025 Globulin (S) [Mass/Vol] 2.5 g/dL 2.2-4.2 [facility] Serum glucose measurement (m ass/volume)Ordered By: Renato [place] on 06-29-2025 Glucose [Mass/Vol] 97 mg/dL 70-99 [facility] Serum or plasma alanine tse otransferase (ALT) measurementOrdered By: Renato [place] on 06-29-2025 ALT [Catalytic activity/Vol] 16 U/L <35 [facility] Serum or plasma albumin ross urement (mass/volume)Ordered By: Renato [place] on 06-29-2025 Albumin [Mass/Vol] 4.1 g/dL 3.5-5.0 [facility] Serum or plasma alkaline aleks sphatase measurementOrdered By: Renato [place] on 06-29-2025 ALP [Catalytic activity/Vol] 113 U/L High 35-104 [facility] Serum or plasma calcium ross urement (mass/volume)Ordered By: Renato [place] on 06-29-2025 Calcium [Mass/Vol] 9.4 mg/dL 7.6-11.0 [facility] Serum or plasma urea nitroge n measurement (mass/volume)Ordered By: Renato [place] on 06-29-2025 Urea nitrogen [Mass/Vol] 17 mg/dL 4-19 [facility] Sodium levelOrdered By: Earl [place] on 06-29-2025 Sodium [Moles/Vol] 138 mmol/L 133-145 [facility] Squamous epithelial cells de tection in urine sediment by light microscopyOrdered By: Renato [place] on 06-29-2025 Epithelial cells.squamous LM Ql (Urine sed) 0-5 SEEN /hpf 5-10 [facility] TSH DL <= 0.005 mIU/L QnOrde red By: Renato [place] on 06-29-2025 TSH Qn 5.840 uIU/mL High 0.300-4.200 [facility] Thyroid Stim Hormone (TSH)on 06-29-2025 TSH 5.840 uIU/mL High 0.300-4.200 [facility] Comment on above: Performed By: #### L 500.3400, L501.9520, L501.2450, L500.2500, L501.5200 ####[facility] [address] [place], [address] Total proteinOrdered By: Ricardo [place] on 06-29-2025 Protein [Mass/Vol] 6.5 g/dL 5.9-8.4 [facility] Transitional cells detection in urine sediment by light microscopyOrdered By: Renato [place] on 06-29-2025 Transitional cells LM Ql (Urine sed) 0-5 SEEN /hpf 0-5 [facility] Urinalysis, Completeon 06-29 BACTERIA 1+ /hpf Normal None Seen [facility] Comment on above: Order Comment: CLEAN CATCH Performed By: #### L 400.0001 #### [facility] [address] [place], [address] EPI,SQUAMOUS 0-5 SEEN Normal 5-10 [facility] Comment on above: Order Comment: CLEAN CATCH Performed By: #### L 400.0001 #### [facility] [address] [place], [address] EPI,TRANSITION 0-5 SEEN Normal 0-5 [facility] Comment on above: Order Comment: CLEAN CATCH Performed By: #### L 400.0001 #### [facility] [address] [place], [address] RBC 0-5 SEEN Normal 0-5 [facility] Comment on above: Order Comment: CLEAN CATCH Performed By: #### L 400.0001 #### [facility] [address] [place], [address] WBC 0-5 SEEN Normal 0-5 [facility] Comment on above: Order Comment: CLEAN CATCH Performed By: #### L 400.0001 #### [facility] [address] [place], [place], [id number] Mucus Ql (Urine sed) 0 SEEN Normal [facility] Comment on above: Order Comment: CLEAN CATCH Performed By: #### L 400.0001 #### [facility] [address] [place], [place], [id number] Urine clarityOrdered By: Ricardo [place] on 06-29-2025 Clarity (U) Clear Clear [facility] Urine color determinationOrd ered By: Renato [place] on 06-29-2025 Color (U) Yellow Yellow [facility] Urine glucose detectionOrder ed By: Renato [place] on 06-29-2025 Glucose Ql (U) Normal mg/dl Normal [facility] Urine leukocyte esterase det ection by dipstickOrdered By: Renato [place] on 06-29-2025 Leukocyte esterase Test strip Ql (U) 100 /ul High Negative [facility] Urine pHOrdered By: Renato goncalves on 06-29-2025 pH (U) 6.5 [pH] 5.0 - 8.0 [facility] Urine sediment bacteria coun t by microscopy (number/high power field)Ordered By: Renato [place] on 06-29-2025 Bacteria LM.HPF (Urine sed) [#/Area] 1 /[HPF] None Seen [facility] Urine specific gravity measu rementOrdered By: Renato [place] on 06-29-2025 Specific gravity (U) [Rel density] 1.010 1.002-1.030 [facility] Urine urobilinogen measureme ntOrdered By: Renato [place] on 06-29-2025 Urobilinogen Ql (U) Normal mg/dl Normal [facility] White blood cell (WBC) count Ordered By: Renato [place] on 06-29-2025 WBC (Bld) [#/Vol] 6.8 10*3/uL 4.4-11.0 [facility] White blood cell countOrdere d By: Renato [place] on 06-29-2025 White blood cell count 0-5 SEEN /hpf 0-5 [facility] CNPNon 06-25-2025 CNPN Normal [facility] Absolute lymphocyte countOrd ered By: Geovanni KlJarrett on 06-23-2025 Lymphocytes Auto (Unsp spec) [#/Vol] 1.25 10*3/uL 0.83-4.51 [facility] Absolute neutrophil countOrd ered By: Geovanniprisca Sorto on 06-23-2025 Neutrophils (Bld) [#/Vol] 4.7 10*3/uL 2.0-7.7 [facility] Anion gap in Serum or Plasma Ordered By: Geovanni Jarrett on 06-23-2025 Anion gap [Moles/Vol] 8 mmol/L 01-14 [facility] Automated lymphocyte count a s percentage of total leukocytesOrdered By: Geovanni Sorto on 06-23-2025 Lymphocytes/100 WBC Auto (Unsp spec) 17.9 % Low 19- [facility] BUN/creatinine ratioOrdered By: Geovanni Sorto on 06-23-2025 Urea nitrogen/Creatinine [Mass ratio] 14.5 mg/mg 06-21 [facility] Basic Metabolic Profile (BMP )on 06-23-2025 BUN/CRE 14.5 RATIO Normal 06-21 [facility] Comment on above: Performed By: #### L 100.0100, L500.2500 ####[facility] [address] [place], [address] Calcium [Mass/Vol] 8.8 mg/dL Normal 7.6-11.0 [facility] Comment on above: Performed By: #### L 100.0100, L500.2500 ####[facility] [address] [place], [address] Chloride [Moles/Vol] 99 mmol/L Normal 98-108 [facility] Comment on above: Performed By: #### L 100.0100, L500.2500 ####[facility] [address] [place], [address] CO2 [Moles/Vol] 28.0 mmol/L Normal 21.0-32.0 [facility] Comment on above: Performed By: #### L 100.0100, L500.2500 ####[facility] [address] [place], [address] Creatinine [Mass/Vol] 1.04 mg/dL Normal 0.70-1.20 [facility] Comment on above: Performed By: #### L 100.0100, L500.2500 ####[facility] [address] [place], [address] ECRCL 53.99 ml/min Normal 50-250 [facility] Comment on above: Performed By: #### L 100.0100, L500.2500 ####[facility] [address] [place], [address] GAP 8 Normal 5-15 [facility] Comment on above: Performed By: #### L 100.0100, L500.2500 ####[facility] [address] [place], [address] GFR/1.73 sq M.predicted among non-blacks MDRD (S/P/Bld) [Vol rate/Area] 63 mL/min/{1.73_m2} Normal >60 [facility] Comment on above: Result Comment: mL/m in/1.73m2 CKD-EPI Creatinine Equation (2020) Performed By: #### L 100.0100, L500.2500 ####[facility] [address] [place], [address] Glucose [Mass/Vol] 92 mg/dL Normal 70-99 [facility] Comment on above: Performed By: #### L 100.0100, L500.2500 ####[facility] [address] [place], [address] Potassium [Moles/Vol] 3.5 mmol/L Normal 3.3-5.1 [facility] Comment on above: Performed By: #### L 100.0100, L500.2500 ####[facility] [address] [place], [address] Sodium [Moles/Vol] 135 mmol/L Normal 133-145 [facility] Comment on above: Performed By: #### L 100.0100, L500.2500 ####[facility] [address] [place], [address] Urea nitrogen [Mass/Vol] 15 mg/dL Normal 4-19 [facility] Comment on above: Performed By: #### L 100.0100, L500.2500 ####[facility] [address] [place], [address] Basophil percentageOrdered B y: Geovanni Sorto on 06-23-2025 Basophils/100 WBC (Bld) 0.3 % 0-1 [facility] Brain/Head without Contrasto n 06-23-2025 Brain/Head without Contrast [facility] Imaging Services [address] [place] [address] Brain/Head without Contrast MR#: [id number] Acct: [id number] Name: ALLIE LYNN Rep #: [id number] : 1970 F 55 From: Manish June MD PCP: Dr. Ifeoma Davis MD Status: REG ER Study: Brain/Head without Contrast Date of Exam: 06/03 10/27 Exam# [id number] Ordering Dr: Geovanni Sorto DO PROCEDURE: CT [...] subarachnoid spaces are normal in size. Absent table mountain ocular lenses. Intact skull base and calvarium. [...] or high-grade stenosis. No aneurysm. Reading Location: [id number] CC: Dr. Geovanni Sorto DO; Dr. Ifeoma Davis MD Crm Analyst: Signed Normal [facility] CBC W/Diff, Automatedon 10-2 Absolute Lymph 1.25 X10 3/uL Normal 0.83-4.51 [facility] Comment on above: Performed By: #### L 100.0100, L500.2500 ####[facility] [address] [place], [address] Absolute Neut 4.7 X10 3/uL Normal 2.0-7.7 [facility] Comment on above: Performed By: #### L 100.0100, L500.2500 ####[facility] [address] [place], [address] Basophils/100 WBC (Bld) 0.3 % Normal 0-1 [facility] Comment on above: Performed By: #### L 100.0100, L500.2500 ####[facility] [address] [place], [address] Eosinophils/100 WBC (Bld) 2.4 % Normal 0-5 [facility] Comment on above: Performed By: #### L 100.0100, L500.2500 ####[facility] [address] [place], [address] Erythrocyte distribution width (RBC) [Ratio] 13.2 % Normal 11.6-14.6 [facility] Comment on above: Performed By: #### L 100.0100, L500.2500 ####[facility] [address] [place], [address] Hematocrit (Bld) [Volume fraction] 31.8 % Low 37-47 [facility] Comment on above: Performed By: #### L 100.0100, L500.2500 ####[facility] [address] [place], [address] Hemoglobin (Bld) [Mass/Vol] 10.4 g/dL Low 12.0-15.0 [facility] Comment on above: Performed By: #### L 100.0100, L500.2500 ####[facility] [address] [place], [address] IG% 0.300 Normal 0.0-0.9 [facility] Comment on above: Result Comment: IG% - Immature Granulocytes (promyelocytes, myelocytes and metamyelocytes) > 1% indicates that a LEFT SHIFT is Present. Performed By: #### L 100.0100, L500.2500 ####[facility] [address] [place], [address] Lymphocytes/100 WBC (Bld) 17.9 % Low 19-41 [facility] Comment on above: Performed By: #### L 100.0100, L500.2500 ####[facility] [address] [place], [address] MCH (RBC) [Entitic mass] 29.7 pg Normal 27.0-32.0 [facility] Comment on above: Performed By: #### L 100.0100, L500.2500 ####[facility] [address] [place], [address] MCHC (RBC) [Mass/Vol] 32.7 g/dL Normal 32-36 [facility] Comment on above: Performed By: #### L 100.0100, L500.2500 ####[facility] [address] [place], [address] MCV (RBC) [Entitic vol] 90.9 fL Normal 81-99 [facility] Comment on above: Performed By: #### L 100.0100, L500.2500 ####[facility] [address] [place], [address] Monocytes/100 WBC (Bld) 11.9 % High 0-10 [facility] Comment on above: Performed By: #### L 100.0100, L500.2500 ####[facility] [address] [place], [address] Neutrophils/100 WBC (Bld) 67.2 % Normal 47-70 [facility] Comment on above: Performed By: #### L 100.0100, L500.2500 ####[facility] [address] [place], [address] Nucleated RBC (Bld) [#/Vol] 0 10*3/uL Normal 0-5 [facility] Comment on above: Performed By: #### L 100.0100, L500.2500 ####[facility] [address] [place], [address] Platelet mean volume (Bld) [Entitic vol] 10.3 fL Normal 6.2-12.0 [facility] Comment on above: Performed By: #### L 100.0100, L500.2500 ####[facility] [address] [place], [address] Platelets (Bld) [#/Vol] 274 10*3/uL Normal 150-450 [facility] Comment on above: Performed By: #### L 100.0100, L500.2500 ####[facility] [address] [place], [address] RBC (Bld) [#/Vol] 3.50 10*6/uL Low 4.2-5.4 [facility] Comment on above: Performed By: #### L 100.0100, L500.2500 ####[facility] [address] [place], [address] RDW SD 43.8 fl Normal 35.1-43.9 [facility] Comment on above: Performed By: #### L 100.0100, L500.2500 ####[facility] [address] [place], [address] WBC (Bld) [#/Vol] 7.0 10*3/uL Normal 4.4-11.0 [facility] Comment on above: Performed By: #### L 100.0100, L500.2500 ####[facility] [address] [place], [address] CTA Head AND Neck W/ Contras ton 06-23-2025 CTA Head AND Neck W/ Contrast [facility] Imaging Services [address] [place] [address] CTA Head AND Neck W/ Contrast MR#: [id number] Acct: [id number] Name: ALLIE LYNN Rep #: [id number] : 1970 F 55 From: Manish June MD PCP: Dr. Ifeoma Davis MD Status: REG ER Study: CTA Head AND Neck W/ Contrast Date of Exam: Exam# [id number] Ordering Dr: Geovanni Sorto DO PROCEDURE: CT [...] subarachnoid spaces are normal in size. Absent table mountain ocular lenses. Intact skull base and calvarium. [...] or high-grade stenosis. No aneurysm. Reading Location: [facility] CC: Dr. Geovanni Sorto DO; Dr. Ifeoma Davis MD Crm Analyst: Signed Normal [facility] Carbon dioxide, total [Moles /volume] in Central venous bloodOrdered By: Geovanni Sorto on 06-23-2025 CO2 [Moles/Vol] 28.0 mmol/L 21.0-32.0 [facility] Chloride assayOrdered By: Jeffrey Sorto on 06-23-2025 Chloride [Moles/Vol] 99 mmol/L 98-108 [facility] Emergency Department Summary on 06-23-2025 Emergency Department Summary [facility] Medical Records Department [address] [place] [address] Emergency Department Summary 06/23/25 MR#: [id number] Acct: [id number] Name: ALLIE LYNN ANN Rep #: [id number] : 1970 55 From: Geovanni Sorto DO [...] intact Psych: Cooperative, appropriate mood and affect [facility] Medical History (Updated 06/23/25 @ 20:[address] Geovanni Sorto, DO) Wears glasses Depression Anxiety High cholesterol [...] SUPPLMENT 06/11/25 Unknown History cell-Bifido 25 billion fgag-ERC-zmwuz capsule cevimeline 30 mg capsule 1 cap [...] bitartrate (Fro (more content not included)... Normal [facility] Eosinophil percentageOrdered By: Geovanni Sorto on 06-23-2025 Eosinophils/100 WBC (Bld) 2.4 % 0-5 [facility] Erythrocyte distribution wid th ratioOrdered By: Geovanni Sorto on 06-23-2025 Erythrocyte distribution width (RBC) [Ratio] 13.2 % 11.6-14.6 [facility] Erythrocyte distribution wid th standard deviationOrdered By: Geovanni Mcghee on 06-23-2025 Erythrocyte distribution width (RBC) [Ratio] 43.8 fl 35.1-43.9 [facility] Glomerular filtration rate ( GFR) estimation/1.73 sq m using serum, plasma, or whole bOrdered By: Geovanni Sorto on 06-23-2025 GFR/1.73 sq M.predicted among non-blacks MDRD (S/P/Bld) [Vol rate/Area] 63 mL/min/{1.73_m2} >60 [facility] Comment on above: mL/min/1.73m2 CKD-EP I Creatinine Equation (2020) Hematocrit Auto (Bld) [Volum e fraction]Ordered By: Geovanni Sorto on 06-23-2025 Hematocrit (Bld) [Volume fraction] 31.8 % Low 37-47 [facility] Hemoglobin measurementOrdere d By: Geovanni Sorto on 06-23-2025 Hemoglobin (Bld) [Mass/Vol] 10.4 g/dL Low 12.0-15.0 [facility] Immature granulocytes/100 WB C Auto (Bld)Ordered By: [place] Noreen on 06-23-2025 Immature granulocytes/100 WBC (Bld) 0.300 % 0.0-0.9 [facility] Comment on above: IG% - Immature Granu locytes (promyelocytes, myelocytes and metamyelocytes) > 1% indicates that a LEFT SHIFT is Present. MCV (mean corpuscular volume ) determinationOrdered By: Geovanni Sorto on 06-23-2025 MCV (RBC) [Entitic vol] 90.9 fL 81-99 [facility] Mean corpuscular hemoglobin (MCH) determinationOrdered By: Geovanni Sorto on 06-23-2025 MCH (RBC) [Entitic mass] 29.7 pg 27.0-32.0 [facility] Mean corpuscular hemoglobin concentration (MCHC) determinationOrdered By: Geovanniprisca Sorto on 06-23-2025 MCHC (RBC) [Mass/Vol] 32.7 g/dL 32-36 [facility] Mean platelet volume determi nationOrdered By: Geovanni Sorto on 06-23-2025 Platelet mean volume (Bld) [Entitic vol] 10.3 fL 6.2-12.0 [facility] Monocyte percentageOrdered B y: Geovanni Sorto on 06-23-2025 Monocytes/100 WBC (Bld) 11.9 % High 0-10 [facility] Neutrophil percentageOrdered By: Geovanni Sorto on 06-23-2025 Neutrophils/100 WBC (Bld) 67.2 % 47-70 [facility] Nucleated red blood cell per centageOrdered By: Geovanni Sorto on 06-23-2025 Nucleated RBC/100 WBC (Bld) [Ratio] 0 % 0-5 [facility] Platelet countOrdered By: Jeffrey Sorto on 06-23-2025 Platelets (Bld) [#/Vol] 274 10*3/uL 150-450 [facility] Potassium measurement (mass/ volume)Ordered By: Geovanni Sorto on 06-23-2025 Potassium (Unsp spec) [Mass/Vol] 3.5 mmol/L 3.3-5.1 [facility] RBC Auto (Bld) [#/Vol]Ordere d By: Geovanni Sorto on 06-23-2025 RBC (Bld) [#/Vol] 3.50 10*6/uL Low 4.2-5.4 [facility] Serum creatinine measurement (mass/volume)Ordered By: Geovanni Sorto on 06-23-2025 Creatinine [Mass/Vol] 1.04 mg/dL 0.70-1.20 [facility] Serum glucose measurement (m ass/volume)Ordered By: Geovanni Sorto on 06-23-2025 Glucose [Mass/Vol] 92 mg/dL 70-99 [facility] Serum or plasma calcium ross urement (mass/volume)Ordered By: Geovanni Mcghee on 06-23-2025 Calcium [Mass/Vol] 8.8 mg/dL 7.6-11.0 [facility] Serum or plasma urea nitroge n measurement (mass/volume)Ordered By: Geovanniprisca FuentesRaymond on 06-23-2025 Urea nitrogen [Mass/Vol] 15 mg/dL 4-19 [facility] Sodium levelOrdered By: Lee l Noreen on 06-23-2025 Sodium [Moles/Vol] 135 mmol/L 133-145 [facility] White blood cell (WBC) count Or[facility]: [facility] WBC (Bld) [#/Vol] 7.0 10*3/uL 4.4-11.0 [facility] Extremity Lower without Cont raon 06-21-2025 Extremity Lower without Contra [facility] Imaging Services [address] [place], [place] [address] Extremity Lower without Contra MR#: [id number] Acct: [id number] Name: ALLIE LYNN Rep #: [id number] : 1970 F 55 From: Grant Lora MD PCP: Dr. Ifeoma Davis MD Status: REG CLI Study: Extremity Lower without Contra Date of Exam: Exam# [id number] Ordering Dr: Phillip Pozo DO PROCEDURE: EXTREMITY [...] Ifeoma Davis MD; Dr. Phillip Pozo DO Crm Analyst: Signed Normal [facility] Fructosamineon 06-19-2025 FRUCTOSAMINE 212 umol/L Normal 0-285 [facility] Comment on above: Result Comment: Publ ished reference interval for apparently healthy subjects between age 20 and 60 is 205 - 285 umol/L and in a poorly controlled diabetic population is 228 - 563 umol/L with a mean of 396 umol/L. Performed at: [address] [id number] [employer] Supervisor: Regis Carballo PhD, Phone: [phone] Performed By: #### L 500.2500, L300.4310, L3400.0100, L501.5200, L501.9985, L300.3900, L100.0100 ####[facility] [address] [place], [place], [id number] MRSA/SAID NASAL SCREENon MRSA+SAID SCRN Reason for Exam: PREOP MRSA MRSA Negative S. AUREUS S. aureus Negative Normal [facility] Comment on above: Performed By: #### B TSPAT, M100.651 ####[facility] [address] [place], [place], [id number] CNPNon 06-18-2025 CNPN Normal [facility] Basic Metabolic Profile (BMP )on 06-17-2025 BUN/CRE 16.4 RATIO Normal - [facility] Comment on above: Performed By: #### L 500.2500, L300.4310, L3400.0100, L501.5200, L501.9985, L300.3900, L100.0100 ####[facility] [address] [place], [place], [id number] Calcium [Mass/Vol] 9.5 mg/dL Normal 7.6-11.0 [facility] Comment on above: Performed By: #### L 500.2500, L300.4310, L3400.0100, L501.5200, L501.9985, L300.3900, L100.0100 ####[facility] [address] [place], [address] Chloride [Moles/Vol] 101 mmol/L Normal 98-108 [facility] Comment on above: Performed By: #### L 500.2500, L300.4310, L3400.0100, L501.5200, L501.9985, L300.3900, L100.0100 ####[facility] [address] [place], [address] CO2 [Moles/Vol] 27.7 mmol/L Normal 21.0-32.0 [facility] Comment on above: Performed By: #### L 500.2500, L300.4310, L3400.0100, L501.5200, L501.9985, L300.3900, L100.0100 ####[facility] [address] [place], [address] Creatinine [Mass/Vol] 0.87 mg/dL Normal 0.70-1.20 [facility] Comment on above: Performed By: #### L 500.2500, L300.4310, L3400.0100, L501.5200, L501.9985, L300.3900, L100.0100 ####[facility] [address] [place], [address] GAP 11 Normal 5-15 [facility] Comment on above: Performed By: #### L 500.2500, L300.4310, L3400.0100, L501.5200, L501.9985, L300.3900, L100.0100 ####[facility] [address] [place], [address] GFR/1.73 sq M.predicted among non-blacks MDRD (S/P/Bld) [Vol rate/Area] 78 mL/min/{1.73_m2} Normal >60 [facility] Comment on above: Result Comment: mL/m in/1.73m2 CKD-EPI Creatinine Equation (2020) Performed By: #### L 500.2500, L300.4310, L3400.0100, L501.5200, L501.9985, L300.3900, L100.0100 ####[facility] [address] [place], [address] Glucose [Mass/Vol] 89 mg/dL Normal 70-99 [facility] Comment on above: Performed By: #### L 500.2500, L300.4310, L3400.0100, L501.5200, L501.9985, L300.3900, L100.0100 ####[facility] [address] [place], [address] Potassium [Moles/Vol] 4.3 mmol/L Normal 3.3-5.1 [facility] Comment on above: Performed By: #### L 500.2500, L300.4310, L3400.0100, L501.5200, L501.9985, L300.3900, L100.0100 ####[facility] [address] [place], [address] Sodium [Moles/Vol] 140 mmol/L Normal 133-145 [facility] Comment on above: Performed By: #### L 500.2500, L300.4310, L3400.0100, L501.5200, L501.9985, L300.3900, L100.0100 ####[facility] [address] [place], [address] Urea nitrogen [Mass/Vol] 14 mg/dL Normal 4-19 [facility] Comment on above: Performed By: #### L 500.2500, L300.4310, L3400.0100, L501.5200, L501.9985, L300.3900, L100.0100 ####[facility] [address] [place], [address] Brain/Head without Contrasto n 06-17-2025 Brain/Head without Contrast [facility] Imaging Services [address] [place] [address] Brain/Head without Contrast MR#: [id number] Acct: [id number] Name: ALLIE LYNN Rep #: [id number] : 1970 F 55 From: Manish June MD PCP: Dr. Ifeoma Davis MD Status: REG ER Study: Brain/Head without Contrast Date of Exam: 06/02 02/24 Exam# [id number] Ordering Dr: Patti Piña DO PROCEDURE: CT [...] subarachnoid spaces are normal in size. Absent table mountain ocular lenses. Intact skull base and calvarium. [...] provider Patti Piña 06/17/2025 at 6 p.m. MULTIMEDIA COORDINATOR. Reading Location: [facility] CC: Dr. Ifeoma Davis MD; Dr. Patti Piña, DO Crm Analyst: Signed Normal [facility] CBC W/Diff, Automatedon 10- Absolute Lymph 0.96 X10 3/uL Normal 0.83-4.51 [facility] Comment on above: Performed By: #### L 500.2500, L300.4310, L3400.0100, L501.5200, L501.9985, L300.3900, L100.0100 ####[facility] [address] [place], [place], [address] Absolute Neut 5.1 X10 3/uL Normal 2.0-7.7 [facility] Comment on above: Performed By: #### L 500.2500, L300.4310, L3400.0100, L501.5200, L501.9985, L300.3900, L100.0100 ####[facility] [address] [place], [address] Basophils/100 WBC (Bld) 0.6 % Normal 0-1 [facility] Comment on above: Performed By: #### L 500.2500, L300.4310, L3400.0100, L501.5200, L501.9985, L300.3900, L100.0100 ####[facility] [address] [place], [address] Eosinophils/100 WBC (Bld) 1.9 % Normal 0-5 [facility] Comment on above: Performed By: #### L 500.2500, L300.4310, L3400.0100, L501.5200, L501.9985, L300.3900, L100.0100 ####[facility] [address] [place], [address] Erythrocyte distribution width (RBC) [Ratio] 13.2 % Normal 11.6-14.6 [facility] Comment on above: Performed By: #### L 500.2500, L300.4310, L3400.0100, L501.5200, L501.9985, L300.3900, L100.0100 ####[facility] [address] [place], [address] Hematocrit (Bld) [Volume fraction] 38.6 % Normal 37-47 [facility] Comment on above: Performed By: #### L 500.2500, L300.4310, L3400.0100, L501.5200, L501.9985, L300.3900, L100.0100 ####[facility] [address] [place], [address] Hemoglobin (Bld) [Mass/Vol] 12.3 g/dL Normal 12.0-15.0 [facility] Comment on above: Performed By: #### L 500.2500, L300.4310, L3400.0100, L501.5200, L501.9985, L300.3900, L100.0100 ####[facility] [address] [place], [address] IG% 0.400 Normal 0.0-0.9 [facility] Comment on above: Result Comment: IG% - Immature Granulocytes (promyelocytes, myelocytes and metamyelocytes) > 1% indicates that a LEFT SHIFT is Present. Performed By: #### L 500.2500, L300.4310, L3400.0100, L501.5200, L501.9985, L300.3900, L100.0100 ####[facility] [address] [place], [address] Lymphocytes/100 WBC (Bld) 13.9 % Low 19-41 [facility] Comment on above: Performed By: #### L 500.2500, L300.4310, L3400.0100, L501.5200, L501.9985, L300.3900, L100.0100 ####[facility] [address] [place], [address] MCH (RBC) [Entitic mass] 29.6 pg Normal 27.0-32.0 [facility] Comment on above: Performed By: #### L 500.2500, L300.4310, L3400.0100, L501.5200, L501.9985, L300.3900, L100.0100 ####[facility] [address] [place], [address] MCHC (RBC) [Mass/Vol] 31.9 g/dL Low 32-36 [facility] Comment on above: Performed By: #### L 500.2500, L300.4310, L3400.0100, L501.5200, L501.9985, L300.3900, L100.0100 ####[facility] [address] [place], [address] MCV (RBC) [Entitic vol] 92.8 fL Normal 81-99 [facility] Comment on above: Performed By: #### L 500.2500, L300.4310, L3400.0100, L501.5200, L501.9985, L300.3900, L100.0100 ####[facility] [address] [place], [address] Monocytes/100 WBC (Bld) 9.4 % Normal 0-10 [facility] Comment on above: Performed By: #### L 500.2500, L300.4310, L3400.0100, L501.5200, L501.9985, L300.3900, L100.0100 ####[facility] [address] [place], [address] Neutrophils/100 WBC (Bld) 73.8 % High 47-70 [facility] Comment on above: Performed By: #### L 500.2500, L300.4310, L3400.0100, L501.5200, L501.9985, L300.3900, L100.0100 ####[facility] [address] [place], [address] Nucleated RBC (Bld) [#/Vol] 0 10*3/uL Normal 0-5 [facility] Comment on above: Performed By: #### L 500.2500, L300.4310, L3400.0100, L501.5200, L501.9985, L300.3900, L100.0100 ####[facility] [address] [place], [address] Platelet mean volume (Bld) [Entitic vol] 10.5 fL Normal 6.2-12.0 [facility] Comment on above: Performed By: #### L 500.2500, L300.4310, L3400.0100, L501.5200, L501.9985, L300.3900, L100.0100 ####[facility] [address] [place], [address] Platelets (Bld) [#/Vol] 332 10*3/uL Normal 150-450 [facility] Comment on above: Performed By: #### L 500.2500, L300.4310, L3400.0100, L501.5200, L501.9985, L300.3900, L100.0100 ####[facility] [address] [place], [address] RBC (Bld) [#/Vol] 4.16 10*6/uL Low 4.2-5.4 [facility] Comment on above: Performed By: #### L 500.2500, L300.4310, L3400.0100, L501.5200, L501.9985, L300.3900, L100.0100 ####[facility] [address] [place], [address] RDW SD 45.3 fl High 35.1-43.9 [facility] Comment on above: Performed By: #### L 500.2500, L300.4310, L3400.0100, L501.5200, L501.9985, L300.3900, L100.0100 ####[facility] [address] [place], [address] WBC (Bld) [#/Vol] 6.9 10*3/uL Normal 4.4-11.0 [facility] Comment on above: Performed By: #### L 500.2500, L300.4310, L3400.0100, L501.5200, L501.9985, L300.3900, L100.0100 ####[facility] [address] [place], [address] CTA Head AND Neck W/ Contras ton 06-17-2025 CTA Head AND Neck W/ Contrast [facility] Imaging Services [address] [place] [address] CTA Head AND Neck W/ Contrast MR#: [id number] Acct: [id number] Name: ALLIE LYNN Rep #: [id number] : 1970 F 55 From: Manish June MD PCP: Dr. Ifeoma Davis MD Status: REG ER Study: CTA Head AND Neck W/ Contrast Date of Exam: Exam# [id number] Ordering Dr: Patti Piña DO PROCEDURE: CT [...] subarachnoid spaces are normal in size. Absent table mountain ocular lenses. Intact skull base and calvarium. [...] provider Patti Piña 06/17/2025 at 6 p.m. MULTIMEDIA COORDINATOR. Reading Location: [facility] CC: Dr. Ifeoma Davis MD; Dr. Patti Piña DO Crm Analyst: Signed Normal [facility] Emergency Department Summary on 06-17-2025 Emergency Department Summary [facility] Medical Records Department [address] [place] [address] Emergency Department Summary 06/17/25 MR#: [id number] Acct: [id number] Name: ALLIE LYNN Rep #: [id number] : 1970 55 From: Patti Piña DO [...] too high risk to have the surgery. [facility] Medical History (Updated 06/17/25 @ 19:32 by [...] SUPPLMENT 06/11/25 Unknown History cell-Bifido 25 billion kodz-NIL-yhdnq capsule cevimeline 30 mg capsule 1 cap [...] cancer Surgi (more content not included)... Normal [facility] Hemoglobin A1con 06-17-2025 HbA1c (Bld) [Mass fraction] 5.6 % Normal <=5.6 [facility] Comment on above: Result Comment: Norm al < 5.7 % Prediabetic 5.7 - 6.4 % Diabetic >or= 6.5 % Please note range changes. Performed By: #### L 500.2500, L300.4310, L3400.0100, L501.5200, L501.9985, L300.3900, L100.0100 ####[facility] [address] [place], [address] MR/PAT.MARYon 06-17-2025 MR/PAT.MARY [facility] Medical Records Department [address] [address] PAT - Anesthesia 06/17/25 1528 MR#: [id number] Acct: [id number] Name: ALLIE LYNN ANN Rep #: [id number] : 1970 55 From: Rusty Guerrero MD PCP: Dr. Ifeoma Davis MD Status:PRE IN Y Race: C Location: [facility] Pre-Assessment Diagnosis/Proposed Procedure Planned Operative Procedure(s): (L) ERAS, Left Total Hip Replacement Robotic Arm Assisted Anesthesia History Anesthesia History - steel hanger: Anesthesia History - steel hanger Hx Hospitalization No 06/11/25 13:38 Any Problems [...] take am of surgery PONV PONV - steel hanger: PONV - steel hanger Female Yes 06/11/25 13:38 HX of Motion [...] 06/03/25 15:26 Respiratory Assessment Respiratory Assessment - steel hanger: Respiratory Tract Infection Hx - steel hanger Hx Respiratory Tract Infection No 06/11/25 13:38 STOP Sleep Apnea STOP Sleep Apnea - steel hanger: STOP Sleep Apnea - steel hanger Hx Hypertension Yes 06/11/25 13:38 Hx Sleep [...] Tobacco Use History Tobacco Use History - steel hanger: Tobacco Use History - steel hanger Tobacco Use Smoking Status Never smoker 06/11/25 13:38 Hx Tobacco Use No 06/11/25 13:38 Years Smoking Packs Smoked per Day Smoking Cessation Date was within the last 15 years Hx Smoking Cessation Date Hx Smoking Cessation Counseling Hematologic Medial History Hematologic Hx - steel hanger: Hematologic 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 Normal [facility] Magnesiumon 06-17-2025 Magnesium [Mass/Vol] 2.1 mg/dL Normal 1.5-2.2 [facility] Comment on above: Performed By: #### L 500.2500, L300.4310, L3400.0100, L501.5200, L501.9985, L300.3900, L100.0100 ####[facility] [address] [place], [address] Partial Thromboplast Timeon 06-17-2025 aPTT Coag (Bld) [Time] 24.0 s Low 24.1-36.2 [facility] Comment on above: Performed By: #### L 500.2500, L300.4310, L3400.0100, L501.5200, L501.9985, L300.3900, L100.0100 ####[facility] [address] [place], [place], [address] Prothrombin Time w/INRon INR Coag (PPP) [Relative time] 0.9 {INR} Normal [facility] Comment on above: Performed By: #### L 500.2500, L300.4310, L3400.0100, L501.5200, L501.9985, L300.3900, L100.0100 ####[facility] [address] [place], [address] PT Coag (PPP) [Time] 12.5 s Normal 11.7-14.9 [facility] Comment on above: Performed By: #### L 500.2500, L300.4310, L3400.0100, L501.5200, L501.9985, L300.3900, L100.0100 ####[facility] [address] [place], [address] Type AND Screen - PAT ONLYon 06-17-2025 Ab SCREEN GEL Negative Normal [facility] Comment on above: Order Comment: Reaso n for Laboratory Test [id number] REPLACEMENT Performed By: #### B TSPAT, M100.651 ####[facility] [address] [place], [address] CNPNon 06-14-2025 CNPN Normal [facility] CNPNon 06-10-2025 CNPN Normal [facility] HIP, UNI W/ Pelvis 2-3 Views on 06-04-2025 HIP, UNI W/ Pelvis 2-3 Views [facility] Imaging Services [address] [place], [place] [address] HIP, UNI W/ Pelvis 2-3 Views MR#: [id number] Acct: [id number] Name: ALLIE LYNN Rep #: [id number] : 1970 F 55 From: Don Sampson PCP: Dr. Ifeoma Davis MD Status: DEP AMB Study: HIP, UNI W/ Pelvis 2-3 Views Date of Exam: 11/24 Exam# [id number] Ordering Dr: Phillip Pozo DO PROCEDURE: HIP, [...] fracture or dislocation is seen. Reading Location: [place] [address] CC: Dr. Ifeoma Davis MD; Dr. Phillip Pozo DO Crm Analyst: Signed Normal [facility] Orthopedic Visit Reporton Orthopedic Visit Report [facility] [address] [place] [address] OFFICE VISIT Date of Service: 06/04/25 MR#: [id number] Acct: [id number] Name: ALLIE LYNN Rep #: [id number] : 1970 Provider: Dr. 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 Normal [facility] Orthopedic Visit Reporton Orthopedic Visit Report [facility] [address] [place] [address] [address] [place] [address] OFFICE VISIT Date of Service: 06/03/25 MR#: [id number] Acct: [id number] Name: ALLIE LYNN Rep #: [id number] : 1970 Provider: Dr. Michael Cameron MD Age/Sex: 55/F Location: [facility] Status: Signed Intake Vital Signs 12/09/24 13:28 [...] QDAY 12/09/24 06/03/25 H istory omega-3 720 zu-tux-xfq-fish cap PO 12/09/24 06/03/25 History oil-vit D3 [...] you fallen in the past year?: Yes [facility] Medical History Hip arthritis Degenerative scoliosis Lumbar [...] leg. Doi (more content not included)... Normal [facility] CNOVon 05-27-2025 CNOV Normal [facility] Emergency Department Summary on 05-27-2025 Emergency Department Summary [facility] Medical Records Department [address] [place] [address] Emergency Department Summary 05/27/25 MR#: [id number] Acct: [id number] Name: ALLIE LYNN Rep #: [id number] : 1970 55 From: Juan Manuel Turpin [...] symptoms: No Recent Illness/Hospitalizati on: No PFSH PFS Medical History Hip arthritis [...] QDAY 12/09/24 Unknown Hi story omega-3 720 vd-tsq-qxe-fish cap PO 12/09/24 Unknown History oil-vit D3 [...] Respiratory/Chest Respiratory/Ch (more content not included)... Normal [facility] Lipid 1996 panelon 5 Cholesterol [Mass/Vol] 144 mg/dL Normal <200 [facility] Comment on above: Order Comment: Speci men Type: BLOOD SPECIMENOrdering Facility: [facility] Address: [address] [place] [address] Result Comment: <200 mg/dL, Desirable 200-239 mg/dL, Borderline high>239 mg/dL, High Performed By: #### 2 4331-1 ####[facility] LABCLIA [id number] [address] [facility] Cholesterol in HDL [Mass/Vol] 53 mg/dL Normal >[address] [facility] Comment on above: Order Comment: Speci men Type: BLOOD SPECIMENOrdering Facility: [facility] Address: [address] [place] [address] Result Comment: 40-5 9 mg/dL, Acceptable>59 mg/dL, High: Negative risk factor for coronary heart disease<40 mg/dL, Low: Positive risk factor for coronary heart disease Performed By: #### 2 4331-1 ####[facility] LABCLIA [id number] [address] [place] [facility] Cholesterol in LDL [Mass/Vol] 73 mg/dL Normal <[address] [facility] Comment on above: Order Comment: Speci [facility] Type: BLOOD SPECIMENOrdering Facility: [facility] Address: [address] [place] [address] Result Comment: <100 mg/dL, Optimal 100-129 mg/dL, Near optimal/above optimal 130-159 mg/dL, Borderline high 160-189 mg/dL, High>189 mg/dL, Very highSecondary prevention optimal LDL Cholesterol levels are recommended to be <70 mg/dLLDL cholesterol is calculated using the Miranda-NIH equation. Performed By: #### 2 4331-1 ####[facility] LABIA [id number] [place] [address] [place] Cholesterol in LDL/Cholesterol in HDL [Mass ratio] 1.38 {ratio} Normal <2.[address] [facility] Comment on above: Order Comment: Speci men Type: BLOOD SPECIMENOrdering Facility: [facility] Address: [address] [place] [address] Result Comment: Refe rence:1. National Cholesterol Education Program ATP III Guideline At-A-Glance Quick Desk Reference: National Heart, Lung, and Blood [place]. National Institutes of Health. 2001: NIH Publication No. 01-3305.2. An International Atherosclerosis Society position paper: global recommendations for the management of dyslipidemia: executive summary, Atherosclerosis. 2014: 232(2):410-413. Performed By: #### 2 4331-1 ####[facility] LABIA [id number] [place] [address] [place] Cholesterol in VLDL [Mass/Vol] 14 mg/dL Normal <[address] [facility] Comment on above: Order Comment: Altafi angelito Type: BLOOD SPECIMENOrdering Facility: [facility] Address: [address] [place] [address] Performed By: #### 2 4331-1 ####[facility] LABIA [id number] [place] [address] [place] Cholesterol non HDL [Mass/Vol] 91 mg/dL Normal <[address] [facility] Comment on above: Order Comment: Altafi angelito Type: BLOOD SPECIMENOrdering Facility: [facility] Address: [address] [place] [address] Result Comment: <130 mg/dL, Optimal 130-159 mg/dL, Near optimal/above optimal 160-189 mg/dL, Borderline high 190-219 mg/dL, High>219 mg/dL, Very highSecondary prevention optimal non HDL Cholesterol levels are recommended to be <100 mg/dL Performed By: #### 2 4331-1 ####[facility] LABCLIA [id number] [place] [address] [place] Cholesterol.total/Choles terol in HDL [Mass ratio] 2.72 {ratio} Normal <5.[address] [facility] Comment on above: Order Comment: Speci men Type: BLOOD SPECIMENOrdering Facility: [facility] Address: [address] [place] [address] Performed By: #### 2 4331-1 ####[facility] LABIA [id number] [place] [address] [place] FASTING TIME 13 hrs Normal [facility] Comment on above: Order Comment: Speci men Type: BLOOD SPECIMENOrdering Facility: [facility] Address: [address] [place] [address] Performed By: #### 2 4331-1 ####[facility] LABIA [id number] [place] [address] [place] Triglyceride [Mass/Vol] 96 mg/dL Normal <150 [facility] Comment on above: Order Comment: Speci men Type: BLOOD SPECIMENOrdering Facility: [facility] Address: [address] [place] [address] Result Comment: <150 mg/dL, Normal 150-199 mg/dL, Borderline high 200-499 mg/dL, High>499 mg/dL, Very high Performed By: #### 2 4331-1 ####[facility] LABIA [id number] [place] [address] [place] CNPNon 05-17-2025 CNPN Normal [facility] Magnetic resonance imaging r eportOrdered By: Brittaney Barth on 05-10-2025 Study report [facility] Imaging Services [address] [place] [address] Spine Lumbar (Routine) MR#: [id number] Acct: [id number] Name: ALLIE LYNN Rep #: [id number] : 1970 F 55 From: Shaan Barth MD PCP: Dr. Ifeoma Davis MD Status: REG C WALLY Study:Spine Lumbar (Routine) Date of Exam: 05/07/25 Exam# [id number] Ordering Dr: Shauna Cameron MD PROCEDURE: SPINE [...] L1-2 with associated central stenosis. Reading Location: [facility] CC: Dr. Michael Cameron MD; Dr. Ifeoma Davis MD ~ Crm Analyst: Signed [facility] Spine Lumbar (Routine)on Spine Lumbar (Routine) [facility] Imaging Services [address] [place], [place] [id number] Spine Lumbar (Routine) MR#: [id number] Acct: [id number] Name: ALLIE LYNN Rep #: [id number] : 1970 F 55 From: Brittaney stacy MD PCP: Dr. Ifeoma Davis MD Status: REG CLI Study: Spine Lumbar (Routine) Date of Exam: 05/07/25 Exam# [id number] Ordering Dr: Michael Cameron MD PROCEDURE: SPINE [...] L1-2 with associated central stenosis. Reading Location: [facility] CC: Dr. Michael Cameron MD; Dr. Ifeoma Davis MD Crm Analyst: Signed [facility] CNPNon 04-28-2025 CNPN Normal [facility] CNOVon 04-22-2025 CNOV Normal [facility] CNPNon 04-22-2025 CNPN Normal [facility] L/S Spine Bending Flex/[place] 04-16-2025 L/S Spine Bending Flex/Ext [facility] Imaging Services [address] [place] [address] [id number] L/S Spine Bending Flex/Ext MR#: [id number] Acct: [id number] Name: ALLIE LYNN Rep #: [id number] : 1970 F 54 From: Alan Perales MD PCP: Dr. Ifeoma Davis MD Status: DEP AMB Study: L/S Spine Bending Flex/Ext Date of Exam: 04/16 Exam# [id number] Ordering Dr: Sarah Pino PROCEDURE: L/S SPINE [...] pronounced at L3-4. Multilevel spondylolisthesis. Reading Location: [facility] CC: KENA Perkins; Dr. Ifeoma Davis MD Crm Analyst: Signed [facility] Orthopedic Visit Reporton Orthopedic Visit Report [facility] [address] [place] [address] OFFICE VISIT Date of Service: 04/16/25 MR#: [id number] Acct: [id number] Name: ALLIE LYNN Rep #: [id number] : 1970 Provider: Dr. Michael Cameron MD Age/Sex: 54/F Location: [facility] Status: Signed Intake Vital Signs 12/09/24 13:28 [...] QDAY 12/09/24 04/16/25 H istory omega-3 720 oq-jup-wfy-fish cap PO 12/09/24 04/16/25 History oil-vit D3 [...] by me, Dr. Michael Cameron MD 04/16/25 8221. 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 She has became more of a fall risk due to the pain and stiffness. She does have weakness in her left leg and primarily uses the right leg to lead especially when going up steps. Dr. Betancourt did prescribe her Percocet yesterday for rosanne (more content not included)... Normal [facility] CNOVon 04-11-2025 CNOV Normal [facility] CNPNon 04-03-2025 CNPN Normal [facility] CNPNon 03-31-2025 CNPN Normal [facility] CNPNon 03-30-2025 CNPN Normal [facility] CNPNon 03-26-2025 CNPN Normal [facility] ANES POSTPROC EVALon 025 ANES POSTPROC EVAL Normal [facility] ANES PRE-OPon 03-25-2025 ANES PRE-OP Normal [facility] OPERATIVE NOon 03-25-2025 OPERATIVE NO Normal [facility] Basic metabolic 2000 panelOr dered By: Mahsa Aponte on 03-24-2025 Anion gap [Moles/Vol] 12 mmol/L 8 - 15 mmol/L [facility] Calcium [Mass/Vol] 9.6 mg/dL 8.5 - 10. 2 mg/dL [facility] Chloride [Moles/Vol] 99 mmol/L 98 - 10 7 mmol/L [facility] CO2 [Moles/Vol] 25 mmol/L 22 - 30 mmol/L [facility] Creatinine [Mass/Vol] 0.99 mg/dL High 0.58 - 0.96 mg/dL [facility] GFR/1.73 sq M.predicted among non-blacks MDRD (S/P/Bld) [Vol rate/Area] 67 mL/min/{1.73_m2} - PINF [facility] Comment on above: Estimated Glomerular Filtration [...] [Mass/Vol] 94 mg/dL 74 - 99 mg/dL [facility] Comment on above: The [place] Diabete s Association (ADA) provides guidance for [...] Standards of Medical Care in Diabetes 2016, [place] Diabetes Association. Diabetes Care. 2016.39(Suppl 1). Interpretation and review of laboratory results Abnormal [facility] Potassium [Moles/Vol] 4.1 mmol/L 3.7 - 5.1 mmol/L [facility] Sodium [Moles/Vol] 136 mmol/L 136 - 144 mmol/L [facility] Urea nitrogen [Mass/Vol] 20 mg/dL 7 - 21 mg/d L [facility] Basic metabolic 2000 panelon 03-24-2025 Anion gap [Moles/Vol] 12 mmol/L Normal 8-15 [facility] Comment on above: Order Comment: Speci men Type: BLOOD SPECIMENOrdering Facility: [facility] Address: [address] [place], [place] [address] Performed By: #### 2 4321-2 ####[facility] CITY[facility]CLIA [id number] [place] [address] [place] Calcium [Mass/Vol] 9.6 mg/dL Normal 8.5-10.2 [facility] Comment on above: Order Comment: Speci men Type: BLOOD SPECIMENOrdering Facility: [facility] Address: [address] [place] [address] Performed By: #### 2 4321-2 ####[facility] [id number] [place] [address] [place] Chloride [Moles/Vol] 99 mmol/L Normal 98-107 [facility] Comment on above: Order Comment: Speci men Type: BLOOD SPECIMENOrdering Facility: [facility] Address: [address] [place] [address] Performed By: #### 2 4321-2 ####[facility] [id number] [place] [address] [place] CO2 [Moles/Vol] 25 mmol/L Normal 22-[address] [facility] Comment on above: Order Comment: Speci men Type: BLOOD SPECIMENOrdering Facility: [facility] Address: [address] [place] [address] Performed By: #### 2 4321-2 ####[facility] CITY[facility] [id number] [place] [address] [place] Creatinine [Mass/Vol] 0.99 mg/dL High 0.58-0.96 [facility] Comment on above: Order Comment: Speci men Type: BLOOD SPECIMENOrdering Facility: [facility] Address: [address] [place] [address] Performed By: #### 2 4321-2 ####[facility]ITALWNCLIA [id number] [place] [address] [place] eGFRcr SerPlBld CKD-EPI 2020 67 mL/min/1.73m??? Normal >=[address] [facility] Comment on above: Order Comment: Brandan eaton Type: BLOOD SPECIMENOrdering Facility: [facility] Address: [address] [place] [address] Result Comment: Zaria mated Glomerular Filtration Rate [...] actual GFR. Performed By: #### 2 4321-2 ####[facility] HOSPITALLIA [id number] [place] [address] [place] Glucose [Mass/Vol] 94 mg/dL Normal 74-99 [facility] Comment on above: Order Comment: Brandan eaton Type: BLOOD SPECIMENOrdering Facility: [facility] Address: [address] [place] [address] Result Comment: The [place] Diabetes Association (ADA) provides guidance for cutoff [...] Standards of Medical Care in Diabetes 2016, [place] Diabetes Association. Diabetes Care. 2016.39(Suppl 1). Performed By: #### 2 4321-2 ####[facility] [id number] [place] [address] [place] Potassium [Moles/Vol] 4.1 mmol/L Normal 3.7-5.1 [facility] Comment on above: Order Comment: Speci men Type: BLOOD SPECIMENOrdering Facility: [facility] Address: [address] [place] [address] Performed By: #### 2 4321-2 ####[facility] [id number] [place] [address] [place] Sodium [Moles/Vol] 136 mmol/L Normal 136-144 [facility] Comment on above: Order Comment: Speci men Type: BLOOD SPECIMENOrdering Facility: [facility] Address: [address] [place] [address] Performed By: #### 2 4321-2 ####[facility] [id number] [place] [address] [place] Urea nitrogen [Mass/Vol] 20 mg/dL Normal 7-[address] [facility] Comment on above: Order Comment: Speci men Type: BLOOD SPECIMENOrdering Facility: [facility] Address: [address] [place] [address] Performed By: #### 2 4321-2 ####[facility] HOSPITALLIA [id number] [place] [address] [place] CBC W Auto Differential pane l (Bld)on 03-24-2025 Basophils (Bld) [#/Vol] 0.05 10*3/uL [facility] Basophils/100 WBC (Bld) 0.6 % C [facility] Differential cell count method Nom (Bld) Auto [facility] Eosinophils (Bld) [#/Vol] 0.23 10*3/uL [facility] Eosinophils/100 WBC (Bld) 2.9 % [facility] Erythrocyte distribution width (RBC) [Ratio] 12.7 % 11.5 - 15.0 % [facility] Hematocrit (Bld) [Volume fraction] 36.8 % 36.0 - 46.0 % [facility] Hemoglobin (Bld) [Mass/Vol] 12.1 g/dL 11.5 - 15.5 g/dL [facility] Immature granulocytes (Bld) [#/Vol] 0.04 10*3/uL [facility] Immature granulocytes/100 WBC (Bld) 0.5 % [facility] Lymphocytes (Bld) [#/Vol] 1.31 10*3/uL [facility] Lymphocytes/100 WBC (Bld) 16.7 % [facility] MCH (RBC) [Entitic mass] 29.9 pg 26. 0 - 34.0 pg [facility] MCHC (RBC) [Mass/Vol] 32.9 g/dL 30.5 - 36.0 g/dL [facility] MCV (RBC) [Entitic vol] 90.9 fL 80.0 - 100.0 fL [facility] Monocytes (Bld) [#/Vol] 0.85 10*3/uL [facility] Monocytes/100 WBC (Bld) 10.8 % [facility] Neutrophils (Bld) [#/Vol] 5.38 10*3/uL [facility] Neutrophils/100 WBC (Bld) 68.5 % [facility] Nucleated RBC (Bld) [#/Vol] [facility] Nucleated RBC/100 WBC (Bld) [Ratio] 0 % /100 WBC [facility] Platelet mean volume (Bld) [Entitic vol] 9.8 fL 9.0 - 12.7 fL [facility] Platelets (Bld) [#/Vol] 375 10*3/uL [facility] RBC (Bld) [#/Vol] 4.05 10*6/uL 3.90 - 5.2 0 m/uL [facility] WBC (Bld) [#/Vol] 7.86 10*3/uL [facility] Basophils (Bld) [#/Vol] 0.05 10*3/uL Normal <0.[address] [facility] Comment on above: Order Comment: Speci men Type: BLOOD SPECIMENOrdering Facility: [facility] Address: [address] [place], [place] [address] Performed By: #### 5 7021-8 ####[facility] MICHAELWNCLIA [id number] [place] [address] [place] Basophils/100 WBC (Bld) 0.6 % Normal [facility] Comment on above: Order Comment: Speci men Type: BLOOD SPECIMENOrdering Facility: [facility] Address: [address] [place] [address] Performed By: #### 5 7021-8 ####[facility] JAIDENTRIMONTJOSSELINELIA [id number] [place] [address] [place] Differential cell count method Nom (Bld) Auto Normal [facility] Comment on above: Order Comment: Speci men Type: BLOOD SPECIMENOrdering Facility: [facility] Address: [address] [place] [address] Performed By: #### 5 7021-8 ####[facility] CITYAMANDAA [id number] [place] [address] [place] Eosinophils (Bld) [#/Vol] 0.23 10*3/uL Normal <0.[address] [facility] Comment on above: Order Comment: Speci men Type: BLOOD SPECIMENOrdering Facility: [facility] Address: [address] [place] [address] Performed By: #### 5 7021-8 ####[facility] JAIDENKingsleyJOSSELINELIA [id number] [place] [address] [place] Eosinophils/100 WBC (Bld) 2.9 % Normal [facility] Comment on above: Order Comment: Speci men Type: BLOOD SPECIMENOrdering Facility: [facility] Address: [address] [place] [address] Performed By: #### 5 7021-8 ####[facility] CITYNCLIA [id number] [place] [address] [place] Erythrocyte distribution width (RBC) [Ratio] 12.7 % Normal 11.5-15.[address] [facility] Comment on above: Order Comment: Speci men Type: BLOOD SPECIMENOrdering Facility: [facility] Address: [address] [place] [address] Performed By: #### 5 7021-8 ####[facility] DAMIANNCMYRNA [id number] [place] [address] [place] Hematocrit (Bld) [Volume fraction] 36.8 % Normal 36.0-46.[address] [facility] Comment on above: Order Comment: Speci men Type: BLOOD SPECIMENOrdering Facility: [facility] Address: [address] [place] [address] Performed By: #### 5 7021-8 ####[facility] CITYROS [id number] [place] [address] [place] Hemoglobin (Bld) [Mass/Vol] 12.1 g/dL Normal 11.5-15.[address] [facility] Comment on above: Order Comment: Speci men Type: BLOOD SPECIMENOrdering Facility: [facility] Address: [address] [place] [address] Performed By: #### 5 7021-8 ####[facility] HOSPITALMYRNA [id number] [place] [address] [place] Immature granulocytes (Bld) [#/Vol] 0.04 10*3/uL Normal <0.[address] [facility] Comment on above: Order Comment: Speci men Type: BLOOD SPECIMENOrdering Facility: [facility] Address: [address] [place] [address] Performed By: #### 5 7021-8 ####[facility] CITYNCLIA [id number] [place] [address] [place] Immature granulocytes/100 WBC (Bld) 0.5 % Normal [facility] Comment on above: Order Comment: Speci men Type: BLOOD SPECIMENOrdering Facility: [facility] Address: [address] [place] [address] Performed By: #### 5 7021-8 ####[facility]ITALWNCLIA [id number] [place] [address] [place] Lymphocytes (Bld) [#/Vol] 1.31 10*3/uL Normal 1.00-4.[address] [facility] Comment on above: Order Comment: Speci men Type: BLOOD SPECIMENOrdering Facility: [facility] Address: [address] [place] [address] Performed By: #### 5 7021-8 ####[facility] CITYNCA [id number] [place] [address] [place] Lymphocytes/100 WBC (Bld) 16.7 % Normal [facility] Comment on above: Order Comment: Speci men Type: BLOOD SPECIMENOrdering Facility: [facility] Address: [address] [place] [address] Performed By: #### 5 7021-8 ####[facility] CITYNCLI [id number] [place] [address] [place] MCH (RBC) [Entitic mass] 29.9 pg Normal 26.0-34.[address] [facility] Comment on above: Order Comment: Speci men Type: BLOOD SPECIMENOrdering Facility: [facility] Address: [address] [place] [address] Performed By: #### 5 7021-8 ####[facility] HOSPITALLIA [id number] [place] [address] [place] MCHC (RBC) [Mass/Vol] 32.9 g/dL Normal 30.5-36.0 [facility] Comment on above: Order Comment: Speci men Type: BLOOD SPECIMENOrdering Facility: [facility] Address: [address] [place] [address] Performed By: #### 5 7021-8 ####[facility] CITYNCLI [id number] [place] [address] [place] MCV (RBC) [Entitic vol] 90.9 fL Normal 80.0-100.0 C [facility] Comment on above: Order Comment: Speci men Type: BLOOD SPECIMENOrdering Facility: [facility] Address: [address] [place] [address] Performed By: #### 5 7021-8 ####[facility] [id number] [place] [address] [place] Monocytes (Bld) [#/Vol] 0.85 10*3/uL Normal <0.[address] [facility] Comment on above: Order Comment: Speci men Type: BLOOD SPECIMENOrdering Facility: [facility] Address: [address] [place] [address] Performed By: #### 5 7021-8 ####[facility] [id number] [place] [address] [place] Monocytes/100 WBC (Bld) 10.8 % Normal C [facility] Comment on above: Order Comment: Speci men Type: BLOOD SPECIMENOrdering Facility: [facility] Address: [address] [place] [address] Performed By: #### 5 7021-8 ####[facility] [id number] [place] [address] [place] Neutrophils (Bld) [#/Vol] 5.38 10*3/uL Normal 1.45-7.[address] [facility] Comment on above: Order Comment: Speci men Type: BLOOD SPECIMENOrdering Facility: [facility] Address: [address] [place] [address] Performed By: #### 5 7021-8 ####[facility] [id number] [place] [address] [place] Neutrophils/100 WBC (Bld) 68.5 % Normal [facility] Comment on above: Order Comment: Speci men Type: BLOOD SPECIMENOrdering Facility: [facility] Address: [address] [place] [address] Performed By: #### 5 7021-8 ####[facility] JAIDENTRIMONTAMANDA [id number] [place] [address] [place] Nucleated RBC (Bld) [#/Vol] 10*3/uL Normal <0.[address] [facility] Comment on above: Order Comment: Speci men Type: BLOOD SPECIMENOrdering Facility: [facility] Address: [address] [place] [address] Performed By: #### 5 7021-8 ####[facility] [id number] [place] [address] [place] Nucleated RBC/100 WBC (Bld) [Ratio] 0.0 /100 WBC Normal [facility] Comment on above: Order Comment: Speci men Type: BLOOD SPECIMENOrdering Facility: [facility] Address: [address] [place] [address] Performed By: #### 5 7021-8 ####[facility] [id number] [place] [address] [place] Platelet mean volume (Bld) [Entitic vol] 9.8 fL Normal 9.0-12.[address] [facility] Comment on above: Order Comment: Speci men Type: BLOOD SPECIMENOrdering Facility: [facility] Address: [address] [place] [address] Performed By: #### 5 7021-8 ####[facility] [id number] [place] [address] [place] Platelets (Bld) [#/Vol] 375 10*3/uL Normal 150-[address] [facility] Comment on above: Order Comment: Speci men Type: BLOOD SPECIMENOrdering Facility: [facility] Address: [address] [place] [address] Performed By: #### 5 7021-8 ####[facility] YAYAFIDEL RODRIGUEZWNCLIA [id number] [place] [address] [place] RBC (Bld) [#/Vol] 4.05 10*6/uL Normal 3.90-5.20 [facility] Comment on above: Order Comment: Speci men Type: BLOOD SPECIMENOrdering Facility: [facility] Address: [address] [place] [address] Performed By: #### 5 7021-8 ####[facility] YAYA SALGADONCLIA [id number] [place] [address] [place] WBC (Bld) [#/Vol] 7.86 10*3/uL Normal 3.70-11.00 [facility] Comment on above: Order Comment: Speci men Type: BLOOD SPECIMENOrdering Facility: [facility] Address: [address] [place] [address] Performed By: #### 5 7021-8 ####[facility] YAYA SALGADONCLIA [id number] [place] [address] [place] CNPNon 03-24-2025 CNPN Normal [facility] HISTORY PHYSICALon HISTORY PHYSICAL Normal [facility] CNPNon 03-23-2025 CNPN Normal [facility] FUNDUS PHOTOS OU (BOTH EYES) on 03-23-2025 [facility] No Panel Informationon 03-23 Radiology Study observation (narrative) [facility] OCT OPTIC NERVE CIRRUS OU (B OTH EYES)on 03-23-2025 [facility] PACHYMETRY OU (BOTH EYES)on 03-23-2025 [facility] Radiology Study observation (narrative) [facility] SLIT LAMP PHOTOS OU (BOTH EY ES)on 03-23-2025 [facility] CNPTOUTREACHon 03-16-2025 CNPTOUTREACH Normal [facility] Lumbar Spine 2 or 3 Viewson 07-09-2025 Lumbar Spine 2 or 3 Views [facility] Imaging Services [address] [place], [place] [address] Lumbar Spine 2 or 3 Views MR#: [id number] Acct: [id number] Name: ALLIE LYNN Rep #: [id number] : 1970 F 54 From: Alan Perales MD PCP: Dr. Ifeoma Davis MD Status: DEP AMB Study: Lumbar Spine 2 or 3 Views Date of Exam: Exam# [id number] Ordering Dr: Phillip Pozo DO PROCEDURE: LUMBAR SPINE 2 OR 3 VIEWS 03/10/2025 REASON FOR EXAM: CHRONIC BACK PAIN TECHNIQUE: LUMBAR SPINE 2 OR 3 VIEWS COMPARISON: None. FINDINGS: No evidence of acute fracture or dislocation. Levoscoliosis. Jnxb-xp-jcqcutny discogenic degenerative changes of the visualized spine. RAD/Lumbar Spine 2 or 3 Views IMPRESSION: Spondylosis. Levoscoliosis. Reading Location: [place] [address] CC: Dr. Ifeoma Davis MD; Dr. Phillip Pozo DO Crm Analyst: Signed Normal [facility] Orthopedic Visit Reporton Orthopedic Visit Report [facility] [address] [place] [address] OFFICE VISIT Date of Service: 03/10/25 MR#: [id number] Acct: [id number] Name: ALLIE LYNN ANN Rep #: [id number] : 1970 Provider: Dr. Phillip goldman DO Age/Sex: 54/F Location[place] [facility] Status: Signed Intake Vital Signs 12/09/24 13:28 [...] QDAY 12/09/24 03/10/25 H istory omega-3 720 zl-xch-oyk-fish cap PO 12/09/24 03/10/25 History oil-vit D3 [...] Dr. Betancourt. (more content not included)... Normal [facility] CNNURSEon 03-02-2025 CNNURSE Normal [facility] CNPNon 03-01-2025 CNPN Normal [facility] CNPNon 02-25-2025 CNPN Normal [facility] CNPNon 01-12-2025 CNPN Normal [facility] CNPNon 12-30-2024 CNPN Normal [facility] CNOVon 12-29-2024 CNOV Normal [facility] POLYSOMNOGRAM (PSG)on 2024 [facility] at [address] [address] ; PSG Study Report Name: ALLIE LYNN Date of Study: 11/17/2024 [facility]#: [id number] Age: 54 (: 1970) ESS: 01/23 Neck [...] Desyrel Sleep procedure: PSG 4 or more [facility] ([id number]) Procedure: The study was attended continuously by a marketing technologist. The monitored parameters included: left (E1-M2) [...] Respirator (more content not included)... SLEEP LAB [facility] Orthopedic Visit Reporton Orthopedic Visit Report [facility] [address] [place] [address] OFFICE VISIT Date of Service: 12/09/24 MR#: [id number] Acct: [id number] Name: ALLIE LYNN Rep #: [id number] : 1970 Provider: Dr. Phillip goldman, DO Age/Sex: 54/F Location: [facility] Status: Signed Intake Vital Signs 11/24/24 15:06 [...] QDAY 12/09/24 12/09/24 H istory omega-3 720 zb-eko-kaq-fish cap PO 12/09/24 12/09/24 History oil-vit D3 [...] Right Shoulde (more content not included)... Normal [facility] 12-07-2024 [facility] Normal [facility] 12-01-2024 [facility] Normal [facility] HIP, UNI W/ Pelvis 2-3 Views on 11-24-2024 HIP, UNI W/ Pelvis 2-3 Views [facility] Imaging Services [address], [place] [id number] HIP, UNI W/ Pelvis 2-3 Views MR#: [id number] Acct: [id number] Name: AAMIRALLIE HOLLANDDEANNA Rep #: [id number] : 1970 F 54 From: Danie Salvador MD PCP: Dr. Ifeoma Davis MD Status: DEP AMB Study: HIP, UNI W/ Pelvis 2-3 Views Date of Exam: Exam# [id number] Ordering Dr: Allie Prakash PROCEDURE: HIP, UNI [...] central to lateral joint space narrowing near knaa-zk-qyzh contact. Lateral acetabular osteophyte formation and large femoral head osteophytes with buttressing. Right hip mild to moderate appearing osteoarthrosis with lrgt-rv-qkzbyctk lateral joint space narrowing and small osteophyte formation. No fracture or dislocation identified. RAD/HIP, UNI W/ Pelvis 2-3 Views IMPRESSION: Knar-bylgvdz-quka-rig ht appearing osteoarthrosis as described above with associated appearing left downward pelvic tilt. Reading Location: [id number] CC: Allie Prakash; Dr. Ifeoma Davis MD Crm Analyst: Signed Normal [facility] Hip Min 2 Views (Portable)on 11-24-2024 Hip Min 2 Views (Portable) [facility] Imaging Services [address] [place] [address] Hip Min 2 Views (Portable) MR#: [id number] Acct: [id number] Name: ALLIE LYNN ANN Rep #: [id number] : 1970 F 54 From: Laya Tay PCP: Dr. Ifeoma Davis MD Status: REG CLI Study: Hip Min 2 Views (Portable) Date of Exam: 11/24 Exam# [id number] Ordering Dr: Allie Prakash PROCEDURE: HIP MIN [...] of the left groin region. Reading Location: [id number] CC: Allie Prakash; Dr. Ifeoma Davis MD Crm Analyst: Signed Normal [facility] CNPNon 11-20-2024 CNPN Normal [facility] Basic metabolic 2000 panelon 11-19-2024 Anion gap [Moles/Vol] 14 mmol/L Normal 8-15 [facility] Comment on above: Order Comment: Speci men Type: BLOOD SPECIMENOrdering Facility: [facility] Address: [address] [place] [address] Performed By: #### 2 4321-2 ####[facility] LABCLIA [id number] [place] [address] [place] Calcium [Mass/Vol] 9.7 mg/dL Normal 8.5-10.2 [facility] Comment on above: Order Comment: Speci men Type: BLOOD SPECIMENOrdering Facility: [facility] Address: [address] [place] [address] Performed By: #### 2 4321-2 ####[facility] LABCLIA [id number] [place] [address] [place] Chloride [Moles/Vol] 99 mmol/L Normal 98-107 [facility] Comment on above: Order Comment: Speci men Type: BLOOD SPECIMENOrdering Facility: [facility] Address: [address] [place] [address] Performed By: #### 2 4321-2 ####[facility] LABCLIA [id number] [place] [address] [place] CO2 [Moles/Vol] 27 mmol/L Normal 22-[address] [facility] Comment on above: Order Comment: Speci men Type: BLOOD SPECIMENOrdering Facility: [facility] Address: [address] [place] [address] Performed By: #### 2 4321-2 ####[facility] LABCLIA [id number] [address] [address] [place] Creatinine [Mass/Vol] 0.95 mg/dL Normal 0.58-0.96 [facility] Comment on above: Order Comment: Brandan eaton Type: BLOOD SPECIMENOrdering Facility: [facility] Address: [address] [place] [address] Performed By: #### 2 4321-2 ####[facility] LABIA [id number] [place] [address] [place] [facility] [place] Creatinine and Glomerular filtration rate.predicted panel (S/P/Bld) 71 mL/min/1.73m??? Normal >=[address] [facility] Comment on above: Order Comment: Brandan eaton Type: BLOOD SPECIMENOrdering Facility: [facility] Address: [address] [place] [address] Result Comment: Zaria mated Glomerular Filtration Rate [...] actual GFR. Performed By: #### 2 4321-2 ####[facility] LABIA [id number] [place] [address] [place] Glucose [Mass/Vol] 73 mg/dL Low 74-99 [facility] Comment on above: Order Comment: Brandan eaton Type: BLOOD SPECIMENOrdering Facility: [facility] Address: [address] [place] [address] Result Comment: The [place] Diabetes [employer] (ADA) provides guidance for cutoff [...] Standards of Medical Care in Diabetes 2016, [place] [employer]. Diabetes Care. 2016.39(Suppl 1). Performed By: #### 2 4321-2 ####[facility] LABCLIA [id number] [address] [address] [place] Potassium [Moles/Vol] 3.5 mmol/L Low 3.7-5.1 [facility] Comment on above: Order Comment: Brandan eaton Type: BLOOD SPECIMENOrdering Facility: [facility] Address: [address] [place] [address] Performed By: #### 2 4321-2 ####[facility] LABIA [id number] [address] [address] [place] Sodium [Moles/Vol] 140 mmol/L Normal 136-144 [facility] Comment on above: Order Comment: Brandan eaton Type: BLOOD SPECIMENOrdering Facility: [facility] Address: [address] [place] [address] Performed By: #### 2 4321-2 ####[facility] LABIA [id number] [place] [address] [place] Urea nitrogen [Mass/Vol] 12 mg/dL Normal 7-[address] [facility] Comment on above: Order Comment: Brandan eaton Type: BLOOD SPECIMENOrdering Facility: [facility] Address: [address] [place] [address] Performed By: #### 2 4321-2 ####[facility] LABIA [id number] [place] [address] [place] CNOVon 11-19-2024 CNOV Normal [facility] CNOVon 11-17-2024 CNOV Office Visit (LDNESL ) ALLIE LYNN ([id number]) 1970 F LV Date Time Provider Department 11/17/24 9:00 PM SLEEP LAB LODI BED 1 LDNESL During your visit today, we recorded the following information about you: Referring Provider: KIMBERLEY BYRD [[id number]] Allergies As of Date: 11/17/2024 Noted Allergy [...] [G47.61] Primary hypertension [I10] Order(s):POLYSOMNOGRA M (PSG) [[id number]] Order #: [id number]. #:[id number] Prescriptions as of 01/05/2025 - meloxicam (MOBIC) [...] daily. 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 Normal [facility] POLYSOMNOGRAM (PSG)/HOME SLE EP APNEA TEST (HSAT)on 11-17-2024 POLYSOMNOGRAM (PSG)/HOME SLEEP APNEA TEST (HSAT) Normal [facility] 25(OH)D3 SerPl-mCncon 2024 25-hydroxyvitamin D3 [Mass/Vol] 42.9 ng/mL Normal 31.0-80.[address] [facility] Comment on above: Order Comment: Speci men Type: BLOOD SPECIMENOrdering Facility: [facility] Address: [address] [place] [address] Result Comment: Clas sification of 25 [place] Vitamin D status:Deficiency/Insufficiency: < or = 30 ng/ml.Sufficiency/Optimal Levels: 31-80 ng/mLToxicity: > 100 ng/mL.Test performed by chemiluminescent immunoassay. Performed By: #### 1 989-3 ####[facility] LABCLIA [id number] [place] [address] [place] CBC W Auto Differential pane l (Bld)on 11-03-2024 Basophils (Bld) [#/Vol] 0.03 10*3/uL [facility] Basophils/100 WBC (Bld) 0.6 % [facility] Differential cell count method Nom (Bld) Auto [facility] Eosinophils (Bld) [#/Vol] 0.2 10*3/uL [facility] Eosinophils/100 WBC (Bld) 3.7 % [facility] Erythrocyte distribution width (RBC) [Ratio] 14 % 11.5 - 15.0 % [facility] Hematocrit (Bld) [Volume fraction] 37.9 % 36.0 - 46.0 % [facility] Hemoglobin (Bld) [Mass/Vol] 12 g/dL 11.5 - 15.5 g/dL [facility] Immature granulocytes (Bld) [#/Vol] [facility] Immature granulocytes/100 WBC (Bld) 0.2 % [facility] Lymphocytes (Bld) [#/Vol] 1.2 10*3/uL [facility] Lymphocytes/100 WBC (Bld) 22.2 % [facility] MCH (RBC) [Entitic mass] 29.3 pg 26. 0 - 34.0 pg [facility] MCHC (RBC) [Mass/Vol] 31.7 g/dL 30.5 - 36.0 g/dL [facility] MCV (RBC) [Entitic vol] 92.4 fL 80.0 - 100.0 fL [facility] Monocytes (Bld) [#/Vol] 0.65 10*3/uL [facility] Monocytes/100 WBC (Bld) 12 % C [facility] Neutrophils (Bld) [#/Vol] 3.31 10*3/uL [facility] Neutrophils/100 WBC (Bld) 61.3 % [facility] Nucleated RBC (Bld) [#/Vol] NINF [facility] Nucleated RBC/100 WBC (Bld) [Ratio] 0 % /100 WBC [facility] Platelet mean volume (Bld) [Entitic vol] 11 fL 9.0 - 12.7 fL [facility] Platelets (Bld) [#/Vol] 334 10*3/uL [facility] RBC (Bld) [#/Vol] 4.1 10*6/uL 3.90 - 5.2 0 m/uL [facility] WBC (Bld) [#/Vol] 5.4 10*3/uL [facility] Basophils (Bld) [#/Vol] 0.03 10*3/uL Normal <0.[address] [facility] Comment on above: Order Comment: Speci men Type: BLOOD SPECIMENOrdering Facility: [facility] Address: [address] [place] [address] Performed By: #### 5 7021-8 ####[facility] LABORATORYCLIA [id number] [address] STATES OF [facility] Basophils/100 WBC (Bld) 0.6 % Normal [facility] Comment on above: Order Comment: Speci men Type: BLOOD SPECIMENOrdering Facility: [facility] Address: [address] [place] [address] Performed By: #### 5 7021-8 ####[employer] [facility] LABORATORYCLIA [id number] [place] [address] [place] Differential cell count method Nom (Bld) Auto Normal [facility] Comment on above: Order Comment: Speci men Type: BLOOD SPECIMENOrdering Facility: [facility] Address: [address] [place] [address] Performed By: #### 5 7021-8 ####[employer] LABORATORYCLIA [id number] [address] [place] Eosinophils (Bld) [#/Vol] 0.20 10*3/uL Normal <0.[address] [facility] Comment on above: Order Comment: Speci men Type: BLOOD SPECIMENOrdering Facility: [facility] Address: [address] [place] [address] Performed By: #### 5 7021-8 ####[facility] LABORATORYCLIA [id number] [address] [place] Eosinophils/100 WBC (Bld) 3.7 % Normal [facility] Comment on above: Order Comment: Speci men Type: BLOOD SPECIMENOrdering Facility: [facility] Address: [address] [place] [address] Performed By: #### 5 7021-8 ####[facility] LABORATORYCLIA [id number] [address] [place] Erythrocyte distribution width (RBC) [Ratio] 14.0 % Normal 11.5-15.[address] [facility] Comment on above: Order Comment: Speci men Type: BLOOD SPECIMENOrdering Facility: [facility] Address: [address] [place] [address] Performed By: #### 5 7021-8 ####[facility] [facility] LABORATORYCLIA [id number] [address] [place] Hematocrit (Bld) [Volume fraction] 37.9 % Normal 36.0-46.[address] [facility] Comment on above: Order Comment: Speci men Type: BLOOD SPECIMENOrdering Facility: [facility] Address: [address] [place] [address] Performed By: #### 5 7021-8 ####[facility] LABORATORYCLIA [id number] [address] [place] Hemoglobin (Bld) [Mass/Vol] 12.0 g/dL Normal 11.5-15.[address] [facility] Comment on above: Order Comment: Speci men Type: BLOOD SPECIMENOrdering Facility: [facility] Address: [address] [place] [address] Performed By: #### 5 7021-8 ####[facility] LABORATORYCLIA [id number] [address] OF [place] Immature granulocytes (Bld) [#/Vol] 10*3/uL Normal <0.[address] [facility] Comment on above: Order Comment: Speci men Type: BLOOD SPECIMENOrdering Facility: [facility] Address: [address] [place] [address] Performed By: #### 5 7021-8 ####[facility] LABORATORYCLIA [id number] [address] OF [facility] Immature granulocytes/100 WBC (Bld) 0.2 % Normal [facility] Comment on above: Order Comment: Speci men Type: BLOOD SPECIMENOrdering Facility: [facility] Address: [address] [place] [address] Performed By: #### 5 7021-8 ####[facility] LABORATORYCLIA [id number] [address] STATES [facility] Lymphocytes (Bld) [#/Vol] 1.20 10*3/uL Normal 1.00-4.[address] [facility] Comment on above: Order Comment: Speci men Type: BLOOD SPECIMENOrdering Facility: [facility] Address: [address] [place] [address] Performed By: #### 5 7021-8 ####[facility] LABORATORYCLIA [id number] [address] Lymphocytes/100 WBC (Bld) 22.2 % Normal [facility] Comment on above: Order Comment: Speci men Type: BLOOD SPECIMENOrdering Facility: [facility] Address: [address] [place] [address] Performed By: #### 5 7021-8 ####[facility] LABORATORYCLIA [id number] [address] [place] MCH (RBC) [Entitic mass] 29.3 pg Normal 26.0-34.[address] [facility] Comment on above: Order Comment: Speci men Type: BLOOD SPECIMENOrdering Facility: [facility] Address: [address] [place] [address] Performed By: #### 5 7021-8 ####[facility] LABORATORYCLIA [id number] [address] STATES [facility] MCHC (RBC) [Mass/Vol] 31.7 g/dL Normal 30.5-36.0 [facility] Comment on above: Order Comment: Speci men Type: BLOOD SPECIMENOrdering Facility: [facility] Address: [address] [place] [address] Performed By: #### 5 7021-8 ####[facility] LABORATORYCLIA [id number] [address] [place] MCV (RBC) [Entitic vol] 92.4 fL Normal 80.0-100.0 C [facility] Comment on above: Order Comment: Speci men Type: BLOOD SPECIMENOrdering Facility: [facility] Address: [address] [place] [address] Performed By: #### 5 7021-8 ####[facility] LABORATORYCLIA [id number] [address] [place] Monocytes (Bld) [#/Vol] 0.65 10*3/uL Normal <0.[address] [facility] Comment on above: Order Comment: Speci men Type: BLOOD SPECIMENOrdering Facility: [facility] Address: [address] [place] [address] Performed By: #### 5 7021-8 ####[facility] LABORATORYCLIA [id number] [address] [place] Monocytes/100 WBC (Bld) 12.0 % Normal C [facility] Comment on above: Order Comment: Speci men Type: BLOOD SPECIMENOrdering Facility: [facility] Address: [address] [place] [address] Performed By: #### 5 7021-8 ####[facility] LABORATORYCLIA [id number] [address] [place] Neutrophils (Bld) [#/Vol] 3.31 10*3/uL Normal 1.45-7.[address] [facility] Comment on above: Order Comment: Speci men Type: BLOOD SPECIMENOrdering Facility: [facility] Address: [address] [place] [address] Performed By: #### 5 7021-8 ####[facility] LABORATORYCLIA [id number] [address] [place] Neutrophils/100 WBC (Bld) 61.3 % Normal [facility] Comment on above: Order Comment: Speci men Type: BLOOD SPECIMENOrdering Facility: [facility] Address: [address] [place] [address] Performed By: #### 5 7021-8 ####[facility] LABORATORYCLIA [id number] [place] [address] [place] Nucleated RBC (Bld) [#/Vol] 10*3/uL Normal <0.[address] [facility] Comment on above: Order Comment: Speci men Type: BLOOD SPECIMENOrdering Facility: [facility] Address: [address] [place] [address] Performed By: #### 5 7021-8 ####[facility] LABORATORYCLIA [id number] [address] [place] Nucleated RBC/100 WBC (Bld) [Ratio] 0.0 /100 WBC Normal [facility] Comment on above: Order Comment: Speci men Type: BLOOD SPECIMENOrdering Facility: [facility] Address: [address] [place] [address] Performed By: #### 5 7021-8 ####[facility] LABORATORYCLIA [id number] [place] [address] [place] Platelet mean volume (Bld) [Entitic vol] 11.0 fL Normal 9.0-12.[address] [facility] Comment on above: Order Comment: Speci men Type: BLOOD SPECIMENOrdering Facility: [facility] Address: [address] [place] [address] Performed By: #### 5 7021-8 ####[facility] LABORATORYCLIA [id number] [place] [address] [place] Platelets (Bld) [#/Vol] 334 10*3/uL Normal 150-[address] [facility] Comment on above: Order Comment: Speci men Type: BLOOD SPECIMENOrdering Facility: [facility] Address: [address] [place] [address] Performed By: #### 5 7021-8 ####[facility] LABORATORYCLIA [id number] [place] [address] [place] RBC (Bld) [#/Vol] 4.10 10*6/uL Normal 3.90-5.20 [facility] Comment on above: Order Comment: Speci men Type: BLOOD SPECIMENOrdering Facility: [facility] Address: [address] [place] [address] Performed By: #### 5 7021-8 ####[facility] LABORATORYCLIA [id number] [address] [place] WBC (Bld) [#/Vol] 5.40 10*3/uL Normal 3.70-11.00 [facility] Comment on above: Order Comment: Speci men Type: BLOOD SPECIMENOrdering Facility: [facility] Address: [address] [place] [address] Performed By: #### 5 7021-8 ####[facility] LABORATORYCLIA [id number] [place] [id number] [place] CNOVon 11-03-2024 CNOV Normal [facility] Ferritin SerPl-mCncon 2024 Ferritin [Mass/Vol] 29.7 ng/mL Normal 14.7-205.1 [facility] Comment on above: Order Comment: Speci men Type: BLOOD SPECIMENOrdering Facility: [facility] Address: [address] [place] [address] Performed By: #### 2 276-4, 3024-7, 27194-5, 3016-3 ####[facility] LABORATORYCLIA [id number] [place] [address] [place] Iron and Iron binding capaci ty panelon 03-04-2025 Iron [Mass/Vol] 93 ug/dL Normal 41-[address] [facility] Comment on above: Order Comment: Speci men Type: BLOOD SPECIMENOrdering Facility: [facility] Address: [address] [place] [address] Performed By: #### 2 276-4, 3024-7, 02762-3, 3016-3 ####[facility] LABORATORYCLIA [id number] [address] STATES OF [facility] Iron binding capacity [Mass/Vol] 384 ug/dL Normal 232-[address] [facility] Comment on above: Order Comment: Speci men Type: BLOOD SPECIMENOrdering Facility: [facility] Address: [address] [place] [address] Performed By: #### 2 276-4, 3024-7, 34172-0, 3016-3 ####[facility]ITALCL[facility] [id number] [address] STATES [facility] Iron saturation [Mass fraction] 24.2 % Normal 15.0-57.[address] [facility] Comment on above: Order Comment: Speci men Type: BLOOD SPECIMENOrdering Facility: [facility] Address: [address] [place] [address] Performed By: #### 2 276-4, 3024-7, 90847-7, 3016-3 ####[facility] LABORATORYCLIA [id number] [place] [id number] [place] OF [place] T4 Free SerPl-mCncon 025 Free T4 [Mass/Vol] 0.9 ng/dL Normal 0.9-1.7 [facility] Comment on above: Order Comment: Speci men Type: BLOOD SPECIMENOrdering Facility: [facility] Address: [address] [place] [address] Performed By: #### 2 276-4, 3024-7, 22117-1, 3016-3 ####[facility] LABORATORYCLIA [id number] [place] [id number] [place] TSH SerPl-aCncon 11-03-2024 TSH Qn 0.745 m[IU]/L Normal 0.270-4.[address] [facility] Comment on above: Order Comment: Speci men Type: BLOOD SPECIMENOrdering Facility: [facility] Address: [address] [place] [address] Performed By: #### 2 276-4, 3024-7, 38148-6, 3016-3 ####[facility] LABORATORYCLIA [id number] [place] [address] [place] Vit B12 SerPl-mCncon 025 Cobalamin (Vitamin B12) [Mass/Vol] pg/mL High 232-[address] [facility] Comment on above: Order Comment: Speci men Type: BLOOD SPECIMENOrdering Facility: [facility] Address: [address] [place] [address] Performed By: #### 2 132-9 ####[facility] LABORATORYCLIA [id number] [place] [address] [place] Bacteria Ur Culton Bacteria identified Cx Nom (U) ORGANISM ID: 1 <10,000 CFU/ml Lactose positive gram negative bacilli Insignificant colony count. No further workup. Normal [facility] Comment on above: Performed By: #### 6 30-4 ####[facility] LABCLIA [id number] [place] [address] [place] CNOVon 10-31-2024 CNOV Normal [facility] UA DIP, URINE (POC)on 2024 BILIRUBIN UA (POCT) Small Abnormal Negative [facility] CLARITY UA (POCT) Clear [facility] COLOR UA (POCT) Red [facility] GLUCOSE UA (POCT) 100 mg/dL Abnormal Negative [facility] Hemoglobin Ql (U) Large Abnormal Negative [facility] Interpretation and review of laboratory results Abnormal [facility] KETONE UA (POCT) Trace Negative mg/dL [facility] LEUKOCYTES UA (POCT) Large Abnormal Negative [facility] NITRITE UA (POCT) Positive Abnormal Negative [facility] PH UA (POCT) 6 4.5 - 8.0 [facility] Protein Ql (U) >=300 Abnormal Negative mg/dL [facility] SPECIFIC GRAVITY UA (POCT) 1.01 1.005 - 1.030 [facility] UROBILINOGEN UA (POCT) 2 Abnormal Carleen l E.U./dL [facility] Location:[facility], [address] [place] [address], [place], [address] [facility] POINT OF CARE [facility] GENOVEVA SCREENINGon 10-21-2024 GENOVEVA SCREENING Normal [facility] OCT MACULA CIRRUS OU (BOTH E YES)on 10-13-2024 [facility] Radiology Study observation (narrative) [facility] CNOVon 10-12-2024 CNOV Normal [facility] CNOVon 10-07-2024 CNOV Normal [facility] CNPNon 10-07-2024 CNPN Normal [facility] CNOVon 09-29-2024 CNOV Normal [facility] CNPNon 09-25-2024 CNPN Normal [facility] CNOVon 09-24-2024 CNOV Normal [facility] CNOVon 09-15-2024 CNOV Normal [facility] CNPNon 09-15-2024 CNPN Normal [facility] CNPNon 08-12-2024 CNPN Normal [facility] CNPTOUTREACHon 08-10-2024 CNPTOUTREACH Normal [facility] CNPNon 07-27-2024 CNPN Normal [facility] Cerv Spine 4 or 5 Viewson Cerv Spine 4 or 5 Views [facility] Radiology [address] [place] [address] Cerv Spine 4 or 5 Views MR#: [id number] Acct: [id number] Name: AAMIRALLIE VARMA Rep #: [id number] : 1970 F 54 From: Henrik Cardoan MD PCP: Dr. Ifeoma Davis MD Status: DEP AMB Study: Cerv Spine 4 or 5 Views Date of Exam: 07/15/24 Exam# [id number] Ordering Dr: Allie Prakash [id number] STUDY: X-RAY - CERVICAL SPINE REASON FOR [...] Electronically Signed: Henrik Cardona MD at 10:43 [facility] , CC: Allie Prakash; Dr. Ifeoma Davis MD Crm Analyst: Signed Normal [facility] US Carotid arteries - vinnie jeffrey 06-04-2024 Non-Invasive Vascular Laboratory [facility] Carotid Duplex Bilateral/Complete Date of service/time: 06/04/2024 [...] below for Image [facility] OCT MACULA CIRRUS OU (BOTH E YES)on 02-18-2024 [facility] Radiology Study observation (narrative) [facility] SURGICAL PATHOLOGYOrdered By : Rik De La Paz on 06-07-2023 Addendum t4jmcQHtXQGdoIDuPAUz M 6vuuhQfWBNdsPGrA4Sknj vzTMzrOP6lCU4xaByoiBE tvVHwRPChRqNdr9mjz385 mGFnf8seDJSXQBwqGNNEA Zs9c2qoXQWAqwmvtPq9cU yiV92rz7U4JmyhL5khVBW wXGdyZWVuMFxibHVlMDt9 XHBhcGVydzEyMjQwXHBhc QQgeIC7QCYtGJ8pfzriNK lrNDdeORNlnbC7AJGmbEY sW4AlDNUaAH5texgvGKD8 HUcyIMAgMMY4AzNrAJDjf 1Netsk2RbAceQIpICyucJ FpblxmMVxmczIwIEltbXV jd5xdj7JqH7zetEbusPW6 IGZvciBILiBweWxvcmkga XMgbmVnYXRpdmUgKHBhcn QgQikuXHBhclxjZjFccGF sXJhfLr6tBGJuupixIYV2 EIxfvDAeGQFnj2VuAUsQU RgxROgnI0sclX2uifiqpQ VgMKIiiaRyqj1ryeBpYCY bXVZkB7TwacjuhAkjfrEq FlZosH80my6zkQY9h1OaK V6oF7ZfXOBhdY67lm4ykO HyrsYzH9SqgYPuumMeQ8r ru24aZ7TooQOutQ4da3m4 hKOtsNVlmWIapdV6oO0vF OFpk4RaGFcqjfChYgJiqf LjHQQdow8rjlOxCDX3EHL iUITiZJJvn0ZndR3wAXpn Oz4pUUAfrpjcx8o7uKsxK ENsZXZlbGFuZCBDbGluaW JhhUuyEOyoRZd0WzXtXy3 uAHL6NExaMESrsOweT7th QDJ9eY8hy1g1JBYgHYGML WYzghO1l1H8MN5hFEelhZ 6lHQpbu1NslEO0VNIgXRQ gzxWWCB7xbKDoQT2vrFs6 LQipLUHiic0lIOocluUwH OdfDJ0ybUd0VRznNMBtl9 BqZEAtF0RmoC8iUGbey5N jwIBgPUIKNRVcmJMMu8Ak zERfmYjmZZ5qoBQkKAWxm kBtIT5yODtxYKfwE1NfdB ChLTGZARK7wV1uROIgzRT rKJ9nqsKpINcsp7BohEEn LGZochQConhjkrQYv3Nky PUjyUllvP8vWJSsOT1gFN QzL35tx1canMQxbYT6wYA lIBJFCJIejdDcgYugJX9s qeUhQeXRktWnv5XtrE3fE SPnRyI5iRLnCEH9FHQ9jc YoZVRhET8kwDDlJWEeIMO bZGEoRUFqg5KqPUGrjx61 AXKzJnjclAcjZPVEQN1vJ lGpXBdCMWYfhhLyQLx6bG F7ENZajF5lPKMjF0gIGOX yrtHuyGKejGMqNWMozJ7e oXDjVb3jvSZjhIfeRYCwq XBsZXhpdHkgdGVzdGluZy 8uDUrpm1IifHRveCXxPZJ mZPBtUEHiLc4mKDOphY1g N2TiFTZ4qyMvk4MsJeOIe NK8IXJbe1JiFPTtq7LuNa UgcmVnYXJkZWQgYXMgaW5 2MXR6tGwmgIbyauMeTG1w FBSaciSdHUZiRIWtmE3rL Z9umLTcpnUmRB5bFF2bP3 K2qSUsXZUmpeYup5ptIOX 0YWluIGFwcHJvcHJpYXRl bHkuXHBhcn0= [facility] Work Phone: Case Report Surgical Pathology Report Case: [id number] Authorizing Provider: Andry Connelly MD Collected: 05/30/2023 01:16 PM Ordering Location: Ambulatory Surgery Received: 05/30/2023 09:01 PM Pathologist: Rik De La Paz MD Specimens: A) - DUODENUM BIOPSY, 2nd portion B) - ANTRUM (STOMACH) BIOPSY C) - STOMACH (GASTRIC) POLYP BIOPSY D) - RECTAL POLYP [facility] Work Phone: FINAL DIAGNOSIS s0omxDKyFDVjsJVsKTMg M 5wpzqQaGLVbnZAlN2Tvlu vmJNffNO6oSF6mkHvkhYH qbZHyLVHhZtNqw1jbm902 qWIad3jrLDKAmnvgcCf9x BfdJ59fc0S9IeirB20fiQ BpYFW8JFTxFCRloARqGTP gIPM0TWWzcUHoY2nlWWYo WV5xbwewSJovYDqrVLIbc PE2CIKtcTYsP7EnEWDePI smCHVbptj5FgSeIs1edAT yeTcyMFxwYXJkXHBsYWlu XHCvOnStEV2oKPF0a8Hny xQdLLOhqY9ei4f1FGFpyy AtIFNtYWxsIGludGVzdGl iVYchiTEde5AmHSbkiEpv hf9kp2csrhfrzITcarYko NW6iM6ki8yfQpTdKm1kpi 3apWr7aM2tmWPfCPCpheO HJlLzG0TtgYKqwFliWzqc nBM8LztlEGPgXRQZqQzyZ PXohn6soRVjJ0GgnMXrlJ lzLlxwYXJccGFyIEMuICB ZdP9vXVMqLJNvi6k8hJRa lE7mpFehuTRoZV5yBcFoO TjtTVqhBK2nWHXcvApkQv xwYXJccGFyIEQuICBSZWN 7gV2mHQZbaRauDXZ1o247 FmnaPRLjFCQDgUU3yHLcS PMjRY9ihFPgGYQznr3= [facility] Work Phone: Gross Description h2wirRVaQNWuwGBFVNN2 M XTuMS7hsAzgsIs9hJxyPI EzpfY5iTSvXTktt8fxMSI 2w7flynNSJfaxOZEeRG2z IIsaWAJwBJ4iHiBcIOUcS mYxXHBhcGVydzEyMjQwXH BbqVEwjBT9IZEcNX0hila tQGjqVSxzFJMgtzG1CEDy zAQjA9DtFZIfUZ2pwizmV UG2OSQWJoauHw3uqZXyvB tcZjFcZmNoYXJzZXQwXGZ lnJbqQJRePUz5mC9GHusl XPB3RLWWGfteLdprwVieo 2VjdCBcXHNnIFxcaWQgNT EwMDAgXFxkYiBPVlIgIiA 7EddsKzt7OiLeITf3TPhc GjXOMOx0ODQ2UkQoLCb1J TkgXFxuaCBcXHQgMSBcXG QmRUkstiS8y9saRITozHN aGYL0GEipt8mfMQmcHCX8 XARzTiEoNOSpTE7BJtQwS HWaJdIrHmjlCrX6VSs0MN BPVlMgIiAgMzgwNjQwMjk gLWh3MXi1DFhAAnFtDXNq WmokNAImIuQ8TAa1PhIbG HQgMiBcXHNzIDMgXFxmbC XlSH7wvObnZHZsHR0TXTA lLVepOEDvCwOxPN4wUOUZ NIYPBS6dWazCMTTMNSe9o mNoXHBhciANClxwYXJkIA 3RUKYvWVwiTYj6ogLhAZP gLtHgGOLlO63aj8ZLv5Mb OK7WMYj6bjXgmptqnS7tZ HJpbjAgDQpcZnMyMCBSZW OezVHoEBHbjgDjp2TrULi pbiBhcmUgbXVsdGlwbGUg jFfuJ4JoTX9iUELihwphm 39rgED7fIJqjIIyGRavjc OwZBWdaljcaU4cSWJuUOP 8VJDdRbK5DOPrYnXstN5u IV38GGfmrDYkoFWddBC1N FIdtY6fu49nENAbv7AfdM MvVokyFUJyHLwol3HhVRf lcGljWHNhMzAgDQpcZXBp I94yz0WDa8Mhe6ccwHflw 9GsjKGiOZ6gyAEpLQ6Zs9 edMMCfvMRcYHU9IQmwo7e tEZuoBDL4VPEuBlJlMHIt OU9QRaEySJOoXgVzKsnmS eV9XBo4SIASBjDhKkShWj cbNqRaIHDbMOm2DIs2SBc WNpGaOIMjLikeLTG2UZD8 IVi2KjKyVJKjImSoRDDqX GSjIBefmTGyCV2lpJaqNC HrXQQdQFN1YMQsgAEFz9I xMDUgDQpcZnMyMiBCLiBB JeYOZM6cIEARU83XJ3cmA JLMV8QKEQstKTNgSFzagA FyZCANClxwbGFpblxsdHJ jaFxmczIyXGVwaWNOZXN0 AS3sJNMDTutxoKOpGFHqn UryUMfotL6pKWHhKmTeRE LeT2mgEsXpET6AFMOyAvG sUwJtKCt8TVFvvW7cQu9j gYOaeP7eWBQaPKX8cjPjs WAjRAGpc4DnhCIyMUWvs6 W0CAZig2E5DMSuV4bnKMu ijGtuJiE6fvGhLjjmsXTn EwUxrMEtEwEzM39rUPUim KDqxGyqk5FrcFk2lLByNI nqRT2fYDAkDCQdMVL8KN8 abRKhND8TMQQmBUcduXpl WHNiMFxzYTMwXGVwaWNYc 2EzMCANClxlcGljTmVzdE ClOvP0NTLglLPzKRG1KN7 rzWubDBSaGGq5UHbqDRXd X9PhR4CiCLfwRfEnSGjbT GJkYHSdMUqsPZMeF4LVMY DrAJG0BsN4XfVlYNb1BRi 4FM2SCcXgUQXeFZD3ORK5 TDLmSBy5MStzRK5AVHYxZ sLgKLC7Eeo1ATO5Eiq6ZX fklDLwSLhpq1PrWeUqJZS pIGefnnS2ACYaxuVnr9Dp UZOzYFKvT9aiRnUgEFUGG uabxyIoHNTySJJSA69OE5 jbBBrKD4GQMREyWPVMIHx EIYGSK1ZLAWujJIQzEOsm cGFyZCANClxwbGFpblxsd HJjaFxmczIyXGVwaWNOZX D9TA7fESQLYmfqyUIoXGV jtUefRIdeyY3uVWRxFeBz QQLoS4yoTaVuKC6RHMBrF kNwUhIzKFt1GTSedO5gCz 0nkCOcfF8mvBUov76sLFP jVRUvKH2gAZCvfv5uwq90 nkgkz61owQN2nYDqfPHmd MDjk3YzbQ6tHWEjNoE0YA IoHhJ7NFQrVdLnkK7iAZ5 1LIauhVZdfWWarZL4KMOt pC5wz04aTWSzi7MpsXAzN jLzlBUzRI5CCONnBKomaX ljWHNiMFxzYTMwXGVwaWN Jn6YeOCMOJigtlObbIzLt tIBtYyF0ODGkeZMaWIA0D R1ulPgeGLEuSJq5EYbbUR PxG7UkQ5QlNKsvWiKoFQf pEWMoGZJoZQtgXPInU0RP DXQiFBS7ZjL6YqQaUVx1I Iu7XQ2AGdByLMLrGQX6IS k3VuLeIEe0WVhyRL6TTGQ mRjQzDMM5Qnh4YSQ3Osm7 CQoqnQGpIMaau7VfWbUiO UHkDYspeyP2RLFhamGyc3 RmUJBrSTGfL2jbSgPvQNM EAqkenaQtHJJwRAAEI4MW PIZFU9tRUQsaYSIkDZblk GFyZCANClxwbGFpblxsdH JjaFxmczIyXGVwaWNOZXN 6TR3jELLLVbjqpEHuOWUo pMtyTHjalR9iCTRmOcBxJ HFfP4ndBjKvYM0LUCFuRf UmHzYcARe1RFQpfU0lLp1 tcEHgsF8ynUWlu55zOXRs GGFdOR2qWVZnjntrp63xo AY0zRGssIPgqDFlw7GmtD 8lLBDbJpU8OJRoLyN6NPV lVWKrsD8tPT15IPtflOEq lQFscAR1MLBosX9mb85yK DZmd4DmtQPmLjKmaJEkSS 0KXHNiMFxlcGljWHNiMCA GImYchSHpNN7IL2Lzr6Dl WSdhjHxsBMTrf02cyRGnK o9qbXUhYFM0GEGzDJWuqR DeIEWKhUmsfDJmXLv8TJS aKRQxeDelTFM5YJ6wIDCk FKGjyDBqGFbnO2vvNNPsD HYrjETlER8OSWDrhuAGKe tLIFNlcHRlbWJlciAyOSw wDpMdDpKdLaM7OTSYSS6r sZCuLO1IRTOumlSSKgzqH GXpZXLpvDOCz1FbCSDLCd gcbWchAnVwrYHpCmM0MUR uqPQnLBD0XR6wtHijNGDs R1OvO3WrhqF9EQIdxoMMM voiBVSrPF1AHRBkUyEkHF p9 [facility] Work Phone: Performing Lab q5fxpCBnPFFnaIZeVvMk M IGuHMHoj3ibAPWvwAWfCi EwMzNcZnRuYmpcdWMxXGR aAwRsf6uzy067sOQvm2ji UCFuSsC0aBQnEBFraAMsX 100ARShQVeqv7iin1RnGV KbvHYmm0J6LEUTccjayJz 3uGsoT22zb3F2IfmfA1hj JHOkRKApW1QcVC7iGPLzU gw5AQH1GDE3GVWrLNWqC5 NnXW2tSYVgyTWxVJk2q7f ykTylVESrSYZ7m4idVHgy fzYgDW1xpv5iaWu9m9zyz zEgRGVmYXVsdCBQYXJhZ3 FjhLrkDa1zcUa2iInqQvf qGMB3Gqb9JY2ofh53rvh6 nYmtSOVsoswxHbG3VZsbN ODebgxuXVa7FXmrCTKaxJ O8OGSimTBaI8PwMTzuLS6 focj6ROH9EIuoBIUgGxT3 NDBcaGVhZGVyeTcyMFxmb 120PAG4CoUzUS0qR2Iot7 J7sY4fpOZfQLMasACvBkJ aUBXjxs8ikXJsIEunq8Ob CQW6dzT7sUEajEUoMXZaS A77Hkcpo7FmEjrhr9DmH6 0itUO2AJyks9eoVQ9wYwX 6kuYyYIlke4ejiI3vLoY6 BOszLD4oHT2jSULioB1hm mxjXHBnYnJkcmhlYWRccG gpzbLwHu3rpRruEHF9GXh yD8sabX7ySnG9ZWeeS9sn nO5mQOt3PHbfqON9HMWsv P0gRQ1gwvzxr1hrTImeKO rmQTRjteZ5leDuJNVmmYD eL2MahE2sXNSzFZ8gower m8xyYRM0IElmQEIbOYX9U aSmMGHix7Umrnc6XkQzx9 HxbDNfDNlgN64xp457KLF mktIpL7saxYDhopdqmTHw fgguKKsduxZ6DBMhFWOfR WluXGYxXGZzMjJcbGFuZz EwMzNcaGljaFxmMVxkYmN lUNXnBQkzB7lnHjVbYpSk IwXIkDLigy2vtRzwVAhth UWtwJKcjUV4kZ4zLWZozs Otte3sIXChqDNOcSF5DWr vikPjR6fhpvtiIOD4KROs QZN3X9ckWHQOlgOqIFOrC KJveJTgPXZMRKT2CHI1FD JwVJOLIEHkBPG1DAZ6PFZ wOTRccGFyXHBhclxwYXJk XHBsYWluXGYwXGZzMjRcc GsneN8iRiYzNwPqLawdXL 8gZEFvC9eegJRbNLEwGGH iM5btSqVwaD2yhPdsBUoh ZjJcZnMyMlxsdHJjaCBMY GYvahB3c8S4CUqynDEtcw xmMVxmczIyXGxhbmcxMDM rNXfkY1flStBtAMVwzUlx QRxpx2ZkOZCuZPTrSqKtB MbmBII3v6M0OJsqiETgdz VMCvKBRF4bdWKmcyiwNR9 ELlxwYXJ9 [facility] Work Phone: [phone] [facility] Work Phone: EGD Study observation Narrat ketan 06-01-2023 [facility] Gastrointestinal Endoscopy Patient Name: Allie Lynn Procedure Date: 05/30/2023 1:05 PM Date of : 1970 Admit Type: Outpatient Age: 53 Room: [place] [address] Gender: Female Note Status: Finalized Attending MD: [...] previously scheduled. Procedure Code(s): --- Professional --- 77140, Esophagogastroduodeno scopy, flexible, transoral; with biopsy, single or multiple CPT copyright 2020 [employer]. All rights reserved. The codes documented in this report are preliminary and upon hone operator review may be revised to meet current compliance requirements. (more content not included)... [employer] [facility] Flexible sigmoidoscopy study on 06-01-2023 [facility] Gastrointestinal Endoscopy Patient Name: Allie Lynn Procedure Date: 05/30/2023 1:05 PM Date of : 1970 Admit Type: Outpatient Age: 53 Room: [place] [address] Gender: Female Note Status: Finalized Attending MD: [...] antiplatelet agents. Procedure Code(s): --- Professional --- 58514, Colonoscopy, flexible; with biopsy, single or multiple CPT copyright 2020 [employer]. All rights reserved. The codes documented in this report are preliminary and upon hone operator review may be revised to meet current compliance requirements. Attending Participation: I personally performed the entire procedure. Scope In: 1:23:39 PM Scope Out: 1:33:56 PM MD Andry Martin MD 05/30/2023 1:42:21 PM This report has been signed electronically by Andry Connelly MD Number of Addenda: 0 Note Initiated On: 05/30/2023 1:05 PM Estimated Blood Loss: Estimated blood loss was minimal. [employer] [facility] EGD Study observation Narrat iveon 05-30-2023 Radiology Study observation (narrative) [facility] Flexible sigmoidoscopy study on 05-30-2023 Radiology Study observation (narrative) [facility] Basic metabolic 2000 panelon 05-22-2023 Anion gap [Moles/Vol] 10 mmol/L 9 - 18 mmol/L [facility] Calcium [Mass/Vol] 9.8 mg/dL 8.5 - 10. 2 mg/dL [facility] Chloride [Moles/Vol] 101 mmol/L 97 - 10 5 mmol/L [facility] CO2 [Moles/Vol] 25 mmol/L 22 - 30 mmol/L [facility] Creatinine [Mass/Vol] 0.86 mg/dL 0.58 - 0.96 mg/dL [facility] Estimated Glomerular Filtration Rate 80 mL/min/1.73m >=60 mL/min/1.73m [facility] Glucose [Mass/Vol] 79 mg/dL 74 - 99 mg/dL [facility] Potassium [Moles/Vol] 4.1 mmol/L 3.7 - 5.1 mmol/L [facility] Sodium [Moles/Vol] 136 mmol/L 136 - 144 mmol/L [facility] Urea nitrogen [Mass/Vol] 18 mg/dL 7 - 21 mg/d L [facility] URIC ACID BLOODon 05-22-2023 Urate [Mass/Vol] 3.6 mg/dL 2.5 - 6.6 mg/dL [facility] ANES POSTPROC EVALon 023 ANES POSTPROC EVAL HNO ID: [id number] Author: Mary Kline MD Service: Anesthesiology Author Type: Anesthesiologist Type: Anesthesia Postprocedure Evaluation Filed: 11/07/2022 12:01 PM Note Text: POST ANESTHESIA EVALUATION NOTE : 1970 Procedure Summary Date: 11/07/22 Room / Location: IN OR02 / IN OR Anesthesia Start: 948 Anesthesia Stop: 1024 [...] November 07, 2022 TIME: 12:01 PM CSN: [id number] [facility] ANES PRE-OPon 11-07-2022 ANES PRE-OP HNO ID: [id number] Author: Mary Kline MD Service: Anesthesiology Author Type: Anesthesiologist Type: Anesthesia Preprocedure Evaluation Filed: 11/07/2022 9:04 AM Note Text: ANESTHESIOLOGY DAY OF SURGERY NOTE : 1970 Procedure Information Date/Time: 11/07/22 0955 Procedure: RELEASE TRIGGER FINGER - RIGHT RING AND LEFT MIDDLE FINGERS (Bilateral: Finger) Location: IN OR02 / IN OR Surgeons: Massimo Roberts MD Estimated body [...] and consent discussed: yes. Patient / Responsible Alliance Party agrees to proceed: yes Patient / [...] November 07, 2022 TIME: 9:04 AM CSN: [id number] [facility] HISTORY PHYSICALon HISTORY PHYSICAL HNO ID: [id number] Author: Taina Fan PA-C Service: Orthopaedic Surgery Author Type: Physician Armature Varnisher Type: HANDP Filed: 11/07/2022 9:27 AM Note Text: Massimo Roberts MD Department of Orthopaedics Orth[facility] [address] [place] [address] Dept: [phone] Dept October 01, 2022 CHIEF COMPLAINT: Established [...] EXTRACAP,INSERT LENS Right 06/25/2022 S BALLOON,UTERINE [place] [id number] Medications: CURRENT MEDICATIONS Current Outpatient Medications Medication [...] Psych (no depression, anxiety) Massimo Roberts MD [facility] OPERATIVE NOon 11-07-2022 OPERATIVE NO HNO ID: [id number] Author: Massimo Roberts MD Service: Orthopaedic Surgery Author Type: Physician Type: Operative Report Filed: 11/07/2022 10:43 AM Note Text: OPERATIVE/PROCEDURE REPORT LOG ID: [id number] SURGERY/PROCEDURE DATE: 11/07/2022 INCISION/PROCEDURE START TIME: 10:01 AM INCISION CLOSE/PROCEDURE END TIME: 10:19 AM SURGEON(S)/PROCEDURAL IST(S) AND COO(S): Surgeon(s) and Role: * Massimo Roberts MD - Primary Physician Armature Varnisher: Taina Fan PA-C Registered Nurse Rubbing Bed Operator: Marnie Freitas RN SURGERY/PROCEDURE(S): Right, ring finger [...] DATE: November 07, 2022 TIME: 10:38 AM [facility] CNTHERAPYon 10-31-2022 CNTHERAPY OT/PT/Speech Visit ([facility]) AAIMRALLIE Bustos ([id number]) 1970 F [place] Date Time Provider Department 10/31/22 9:45 AM MICHELLE PEREZ OTMAGALY Date Time Provider Department Center 10/31/2022 9:45 AM [id number], REBECCA*[facility] Reason for Visit: [...] Date Reviewed: 10/16/2022 Reviewed by: Celeste Cardona [employer] - Fully Assessed Prescriptions as of 10/31/2022 [...] this patient by: PATIENT ALMA DELIA Rosario [facility] GENOVEVA CARR RTon 023 [facility] US BREAST LTD RTon 3 [facility] CNTHERAPYon 10-17-2022 CNTHERAPY OT/PT/Speech Visit ([facility]) ALLIE LYNN ([id number]) 1970 F Date Time Provider Department 10/17/22 10:45 AM MICHELLE PEREZ Date Time Provider Department Center 10/17/2022 10:45 AM [id number], REBECCA*[facility] N Reason for Visit: Occupational [...] this patient by: PATIENT ALMA DELIA Rosario [facility] XR SHOULDER [id number] AP/SYLVIA E AP RIGHTon 10-09-2022 [facility] XR HAND GENERAL 3V PA/LAT/OB L BILATERALon 10-01-2022 [facility] GENOVEVA SCREENINGon 09-27-2022 [facility] CNTHERAPYon 09-19-2022 CNTHERAPY OT/PT/Speech Visit ([facility]) ALLIE LYNN ([id number]) 1970 F [place] Date Time Provider Department 09/19/22 12:30 PM MICHELLE PEREZ Date Time Provider Department Center 09/19/2022 12:30 PM [id number], REBECCA[facility] Reason for Visit: [...] this patient by: PATIENT ALMA DELIA Rosario [facility] ANES POSTPROC EVALon 10-24-2 022 ANES POSTPROC EVAL HNO ID: [id number] Author: Florencio De La Fuente MD Service: Anesthesiology Author Type: Anesthesiologist Type: Anesthesia Postprocedure Evaluation Filed: 06/25/2022 12:00 PM Note Text: POST ANESTHESIA EVALUATION NOTE : 1970 Procedure Summary Date: 06/25/22 Room / Location: [facility] OR / [facility] Anesthesia Start: 957 Anesthesia Stop: 1130 Procedures: [...] June 25, 2022 TIME: 12:00 PM CSN: [id number] [facility] ANES PRE-OPon 06-25-2022 ANES PRE-OP HNO ID: [id number] Author: Florencio De La Fuente MD Service: [...] W/INTRAOCULAR LENS POWER CALCULATION (Right: Eye) Location: [facility] OR / [facility] Surgeons: Jonathon Eugene MD Estimated body mass [...] June 25, 2022 TIME: 9:57 AM CSN: [id number] [facility] HISTORY PHYSICALon HISTORY PHYSICAL HNO ID: [id number] Author: Jonathon Eugene MD Service: Ophthalmology Author [...] DATE: June 25, 2022 TIME: 10:02 AM [facility] OPERATIVE NOon 06-25-2022 OPERATIVE NO HNO ID: [id number] Author: Jonathon Eugene MD Service: Ophthalmology Author Type: Physician Type: Operative Report Filed: 06/25/2022 11:35 AM Note Text: OPERATIVE/PROCEDURE REPORT OPHTHAMOLOGY LOG ID: [id number] SURGERY/PROCEDURE DATE: 06/25/2022 INCISION/PROCEDURE START TIME: 10:13 AM INCISION CLOSE/PROCEDURE END TIME: 11:27 AM SURGEON(S)/PROCEDURAL IST(S) AND COO(S): Surgeon(s) and Role: * Jonathon Eugene MD [...] Implant Name Type Inv. Item Serial No. Bonding Machine Tender Lot No. LRB No. Used Action Model No. LENS ACRYSOF ULTRASERT +14.5 DIOPTER ACRYLIC IOL 1 PIECE FOLDABLE UV BLUE - [id number] Intraocular Lens LENS ACRYSOF ULTRASERT +14.5 DIOPTER ACRYLIC IOL 1 PIECE FOLDABLE UV BLUE [id number] [employer] Right 1 Implanted [id number] Ocular Co-Morbidities: Yes Intra-operative Complications None I/primary surgeon/proceduralist performed the entire procedure. SIGNATURE: Jonathon Eugene MD PATIENT NAME: Allie Lynn DATE: June 25, 2022 TIME: 11:31 AM PAGER/CONTACT #: [phone] [facility] ESR Westergren method (Bld) [Velocity]on 05-04-2022 ESR (Bld) [Velocity] 10 mm/h 0 - 20 mm/hr [facility] C-REACTIVE PROTEIN (CRP)on 0 05-03-2022 CRP [Mass/Vol] <0.9 mg/dL [facility] RHEUMATOID FACTOR BLon 05-03 Rheumatoid factor Qn <16 IU/mL [facility] No Panel Information [facility] Vital Signs Date Time Vital Sign Value Performing Clinician Faci lity 07-10-2025 17:18-0500 Body temperature 98 [degF] Dr. Ifeoma Davis MD Work Phone: [facility] 07-10-2025 17:18-0500 Diastolic blood pressure 57 mm[Hg] Dr. Ifeoma Davis MD Work Phone: [facility] 07-10-2025 17:18-0500 Heart rate 79 /min Dr. Ifeoma Davis MD Work Phone: [facility] 07-10-2025 17:18-0500 Respiratory rate 18 /min Dr. Ifeoma Davis MD Work Phone: [facility] 07-10-2025 17:18-0500 SaO2% (BldA) [Mass fraction] 100 % Dr. Ifeoma Davis MD Work Phone: [phone] [place] [address] 07-10-2025 17:18-0500 Systolic blood pressure 112 mm[Hg] Dr. Ifeoma Davis MD Work Phone: [phone] [place] [address] 07-10-2025 14:53-0500 Body height 154.[address] Ifeoma Davis MD Work Phone: 6(764)716-102338 [place] [address] 06-29-2025 06:00-0400 Respiratory rate 16 /min Dr. Ifeoma Davis MD Work Phone: 8(083)664-986838 [place] [address] 06-29-2025 05:17-0400 Body temperature 98.1 [degF] Dr. Ifeoma Davis MD Work Phone: 4(457)465-928338 [place] [address] 06-29-2025 05:17-0400 Diastolic blood pressure 58 mm[Hg] Dr. Ifeoma Davis MD Work Phone: 9(615)962-134638 [place] [address] 06-29-2025 05:17-0400 Heart rate 68 /min Dr. Ifeoma Davis MD Work Phone: 1(901)809-400638 [place] [address] 06-29-2025 05:17-0400 SaO2% (BldA) [Mass fraction] 99 % Dr. Ifeoma Davis MD Work Phone: 9(691)679-880438 [place] [address] 06-29-2025 05:17-0400 Systolic blood pressure 108 mm[Hg] Dr. Ifeoma Davis MD Work Phone: 7(258)466-597038 [place] [address] 06-29-2025 02:44-0400 Body height 154.[address] Ifeoma Davis MD Work Phone: 9(362)397-068138 [place] [address] 06-29-2025 02:44-0400 Body mass index (BMI) [Ratio] 28.4 kg/m2 Dr. Ifeoma Davis MD Work Phone: 5(678)745-615038 [place] [address] 06-29-2025 02:44-0400 Body weight 68.[address] Ifeoma Davis MD Work Phone: 3(764)149-257338 [place] [address] 06-23-2025 21:14-0400 Body temperature 97.8 [degF] Dr. Ifeoma Davis MD Work Phone: 9(987)741-839638 [place] [address] 06-23-2025 21:14-0400 Diastolic blood pressure 62 mm[Hg] Dr. Ifeoma Davis MD Work Phone: 0(548)225-400238 [place] [address] 06-23-2025 21:14-0400 Heart rate 78 /min Dr. Ifeoma Davis MD Work Phone: 9(824)645-238638 [place] [address] 06-23-2025 21:14-0400 Respiratory rate 16 /min Dr. Ifeoma Davis MD Work Phone: 5(863)347-733238 [place] [address] 06-23-2025 21:14-0400 SaO2% (BldA) [Mass fraction] 98 % Dr. Ifeoma Davis MD Work Phone: 8(790)978-230138 [place] [address] 06-23-2025 21:14-0400 Systolic blood pressure 126 mm[Hg] Dr. Ifeoma Davis MD Work Phone: 3(460)624-089338 [place] [address] 06-23-2025 17:25-0400 Body mass index (BMI) [Ratio] 29 kg/m2 Dr. Ifeoma Davis MD Work Phone: 6(274)699-096638 [place] [address] 06-23-2025 17:25-0400 Body weight 69.[address] Ifeoma Davis MD Work Phone: 3(473)397-328338 [place] [address] 06-17-2025 19:44-0400 Body temperature 98 [degF] Dr. Ifeoma Davis MD Work Phone: 9(120)047-973638 [place] [address] 06-17-2025 19:44-0400 Diastolic blood pressure 72 mm[Hg] Dr. Ifeoma Davis MD Work Phone: 8(969)163-111738 [place] [address] 06-17-2025 19:44-0400 Heart rate 70 /min Dr. Ifeoma Davis MD Work Phone: 7(152)939-613438 [place] [address] 06-17-2025 19:44-0400 Respiratory rate 18 /min Dr. Ifeoma Davis MD Work Phone: 9(914)187-465338 [place] [address] 06-17-2025 19:44-0400 SaO2% (BldA) [Mass fraction] 100 % Dr. Ifeoma Davis MD Work Phone: 2(837)966-305438 [place] [address] 06-17-2025 19:44-0400 Systolic blood pressure 157 mm[Hg] Dr. Ifeoma Davis MD Work Phone: 6(621)874-732138 [place] [address] 06-17-2025 17:55-0400 Body mass index (BMI) [Ratio] 25.7 kg/m2 Dr. Ifeoma Davis MD Work Phone: 9(481)782-065038 [place] [address] 06-17-2025 17:55-0400 Body weight 61.[address] Ifeoma Davis MD Work Phone: 5(830)502-218938 [place] [address] 06-03-2025 15:26-0400 Body height 154.[address] Ifeoma Davis MD Work Phone: 3(168)480-766838 [place] [address] 06-03-2025 15:26-0400 Body mass index (BMI) [Ratio] 27 kg/m2 Dr. Ifeoma Davis MD Work Phone: 3(404)660-456438 [place] [address] 06-03-2025 15:26-0400 Body weight 64.[address] Ifeoma Davis MD Work Phone: 9(624)039-506138 [place] [address] 05-27-2025 19:22-0400 Body temperature 98 [degF] Dr. Ifeoma Davis MD Work Phone: 6(641)471-520138 [place] [address] 05-27-2025 19:22-0400 Diastolic blood pressure 69 mm[Hg] Dr. Ifeoma Davis MD Work Phone: 4(622)326-388738 [place] [address] 05-27-2025 19:22-0400 Heart rate 72 /min Dr. Ifeoma Davis MD Work Phone: 9(489)315-114238 [place] [address] 05-27-2025 19:22-0400 Respiratory rate 16 /min Dr. Ifeoma Davis MD Work Phone: 3(280)088-419838 [place] [address] 05-27-2025 19:22-0400 SaO2% (BldA) [Mass fraction] 100 % Dr. Ifeoma Davis MD Work Phone: [facility] 05-27-2025 19:22-0400 Systolic blood pressure 116 mm[Hg] Dr. Ifeoma Davis MD Work Phone: [facility] 05-27-2025 17:07-0400 Body height 154.[address] Ifeoma Davis MD Work Phone: [facility] 05-27-2025 17:07-0400 Body mass index (BMI) [Ratio] 27.6 kg/m2 Dr. Ifeoma Davis MD Work Phone: [facility] 05-27-2025 17:07-0400 Body weight 66.[address] Ifeoma Davis MD Work Phone: [facility] 04-22-2025 10:29-0400 Body mass index (BMI) [Ratio] 27.7 kg/m2 Ifeoma Davis MD Work Phone: [facility] 04-22-2025 10:29-0400 Body weight 66.5 kg Ifeoma Davis MD Work Phone: [facility] 04-22-2025 10:29-0400 Diastolic blood pressure 79 mm[Hg] Ifeoma Davis MD Work Phone: [facility] 04-22-2025 10:29-0400 Heart rate 79 /min Ifeoma Davis MD Work Phone: [facility] 04-22-2025 10:29-0400 Respiratory rate 16 /min Ifeoma Davis MD Work Phone: [facility] 04-22-2025 10:29-0400 Systolic blood pressure 129 mm[Hg] Ifeoma Davis MD Work Phone: [facility] 04-11-2025 13:09-0400 Body mass index (BMI) [Ratio] 27.53 kg/m2 Aislinn Reyes PA-C Work Phone: [facility] 04-11-2025 13:09-0400 Body temperature 97.2 [degF] Aislinn Reyes PA-C Work Phone: [facility] 04-11-2025 13:09-0400 Body weight 66.1 kg Aislinn Reyes PA-C Work Phone: [facility] 04-11-2025 13:09-0400 Diastolic blood pressure 62 mm[Hg] Aislinn Reyes PA-C Work Phone: [facility] 04-11-2025 13:09-0400 Heart rate 82 /min Aislinn Reyes PA-C Work Phone: [facility] 04-11-2025 13:09-0400 Respiratory rate 20 /min Aislinn Reyes PA-C Work Phone: [facility] 04-11-2025 13:09-0400 SaO2% (BldA) [Mass fraction] 98 % Aislinn Reyes PA-C Work Phone: [facility] 04-11-2025 13:09-0400 Systolic blood pressure 110 mm[Hg] Aislinn Reyes PA-C Work Phone: [facility] 03-24-2025 14:59-0400 Body height 154.9 cm Pacc 1 Work Phone: [facility] 03-24-2025 14:59-0400 Body mass index (BMI) [Ratio] 27.78 kg/m2 Pacc 1 Work Phone: [facility] 03-24-2025 14:59-0400 Body weight 66.68 kg Pacc 1 Work Phone: [facility] 03-24-2025 14:59-0400 Diastolic blood pressure 66 mm[Hg] Pacc 1 Work Phone: [facility] 03-24-2025 14:59-0400 Heart rate 80 /min Pacc 1 Work Phone: [facility] 03-24-2025 14:59-0400 Respiratory rate 18 /min Pacc 1 Work Phone: [facility] 03-24-2025 14:59-0400 SaO2% (BldA) [Mass fraction] 96 % Pacc 1 Work Phone: [facility] 03-24-2025 14:59-0400 Systolic blood pressure 108 mm[Hg] [facility] 1 Work Phone: [facility] 12-29-2024 15:08-0400 Body height 154.9 cm Ifeoma Davis MD Work Phone: [facility] 12-29-2024 15:08-0400 Body mass index (BMI) [Ratio] 27.66 kg/m2 Ifeoma Davis MD Work Phone: [facility] 12-29-2024 15:08-0400 Body weight 66.41 kg Ifeoma Davis MD Work Phone: [facility] 12-29-2024 15:08-0400 Diastolic blood pressure 66 mm[Hg] Ifeoma Davis MD Work Phone: [facility] 12-29-2024 15:08-0400 Heart rate 86 /min Ifeoma Davis MD Work Phone: [facility] 12-29-2024 15:08-0400 SaO2% (BldA) [Mass fraction] 97 % Ifeoma Davis MD Work Phone: [facility] 12-29-2024 15:08-0400 Systolic blood pressure 112 mm[Hg] Ifeoma Davis MD Work Phone: [facility] 12-09-2024 13:28-0400 Body height 152.[address] Ifeoma Davis MD Work Phone: [facility] 12-09-2024 13:28-0400 Body mass index (BMI) [Ratio] 29.5 kg/m2 Dr. Ifeoma Davis MD Work Phone: 2([phone] [place] [address] 12-09-2024 13:28-0400 Body weight 68.[address] Ifeoma Davis MD Work Phone: 8(483)[phone] [place] [address] 11-24-2024 15:06-0400 Body height 152.[address] Ifeoma Davis MD Work Phone: 6(175)[phone] [place] [address] 11-03-2024 14:09-0500 Body height 154.9 cm Ifeoma Davis MD Work Phone: [facility] 11-03-2024 14:09-0500 Body mass index (BMI) [Ratio] 29.25 kg/m2 Ifeoma Davis MD Work Phone: [facility] 11-03-2024 14:09-0500 Body weight 70.22 kg Ifeoma Davis MD Work Phone: [facility] 11-03-2024 14:09-0500 Diastolic blood pressure 78 mm[Hg] Ifeoma Davis MD Work Phone: [facility] 11-03-2024 14:09-0500 Heart rate 98 /min Ifeoma Davis MD Work Phone: [facility] 11-03-2024 14:09-0500 SaO2% (BldA) [Mass fraction] 96 % Ifeoma Davis MD Work Phone: [facility] 11-03-2024 14:09-0500 Systolic blood pressure 114 mm[Hg] Ifeoma Davis MD Work Phone: [facility] 10-31-2024 12:58-0500 Body mass index (BMI) [Ratio] 28.74 kg/m2 Chantal Pino APRN.[employer] Work Phone: [facility] 10-31-2024 12:58-0500 Body temperature 97.11 [degF] Chantal Pino MENSWEAR SALESPERSON.[employer] Work Phone: [facility] 10-31-2024 12:58-0500 Body weight 69 kg Chantal Pino MENSWEAR SALESPERSON.[employer] Work Phone: [facility] 10-31-2024 12:58-0500 Diastolic blood pressure 88 mm[Hg] Chantal Pino MENSWEAR SALESPERSON.[employer] Work Phone: [facility] 10-31-2024 12:58-0500 Heart rate 97 /min Chantal Pino APRN.[employer] Work Phone: [facility] 10-31-2024 12:58-0500 Respiratory rate 18 /min Chantal Pino MENSWEAR SALESPERSON.[employer] Work Phone: [facility] 10-31-2024 12:58-0500 SaO2% (BldA) [Mass fraction] 99 % Chantal Pino MENSWEAR SALESPERSON.[employer] Work Phone: [facility] 10-31-2024 12:58-0500 Systolic blood pressure 141 mm[Hg] Chantal Pino MENSWEAR SALESPERSON.[employer] Work Phone: [facility] 10-12-2024 15:14-0500 Body mass index (BMI) [Ratio] 29.78 kg/m2 Ifeoma Davis MD Work Phone: [facility] 10-12-2024 15:14-0500 Body temperature 96.91 [degF] Ifeoma Davis MD Work Phone: [facility] 10-12-2024 15:14-0500 Body weight 71.49 kg Ifeoma Davis MD Work Phone: [facility] 10-12-2024 15:14-0500 Diastolic blood pressure 63 mm[Hg] Ifeoma Davis MD Work Phone: [facility] 10-12-2024 15:14-0500 Heart rate 118 /min Ifeoma Davis MD Work Phone: [facility] 10-12-2024 15:14-0500 Respiratory rate 16 /min Ifeoma Davis MD Work Phone: [facility] 10-12-2024 15:14-0500 SaO2% (BldA) [Mass fraction] 99 % Ifeoma Davis MD Work Phone: [facility] 10-12-2024 15:14-0500 Systolic blood pressure 106 mm[Hg] Ifeoma Davis MD Work Phone: [facility] 10-07-2024 18:25-0500 Body mass index (BMI) [Ratio] 30.41 kg/m2 Calli Duvall MENSWEAR SALESPERSON.[employer] Work Phone: [facility] 10-07-2024 18:25-0500 Body temperature 98.2 [degF] Calli Zabrina MENSWEAR SALESPERSON.[employer] Work Phone: [facility] 10-07-2024 18:25-0500 Body weight 73 kg Calli Zabrina MENSWEAR SALESPERSON.[employer] Work Phone: [facility] 10-07-2024 18:25-0500 Diastolic blood pressure 62 mm[Hg] Calli Zabrina MENSWEAR SALESPERSON.[employer] Work Phone: [facility] 10-07-2024 18:25-0500 Heart rate 103 /min Calli Zabrina MENSWEAR SALESPERSON.[employer] Work Phone: [facility] 10-07-2024 18:25-0500 Respiratory rate 16 /min Calli Zabrina MENSWEAR SALESPERSON.[employer] Work Phone: [facility] 10-07-2024 18:25-0500 SaO2% (BldA) [Mass fraction] 96 % Calli Zabrina MENSWEAR SALESPERSON.[employer] Work Phone: [facility] 10-07-2024 18:25-0500 Systolic blood pressure 124 mm[Hg] Calli Zabrina MENSWEAR SALESPERSON.[employer] Work Phone: [facility] 09-29-2024 14:11-0500 Body mass index (BMI) [Ratio] 30.42 kg/m2 Ifeoma Davis MD Work Phone: [facility] 09-29-2024 14:11-0500 Body weight 73.03 kg Ifeoma Davis MD Work Phone: [facility] 09-29-2024 14:11-0500 Diastolic blood pressure 88 mm[Hg] Ifeoma Davis MD Work Phone: [facility] 09-29-2024 14:11-0500 Heart rate 86 /min Ifeoma Davis MD Work Phone: [facility] 09-29-2024 14:11-0500 Respiratory rate 16 /min Ifeoma Davis MD Work Phone: [facility] 09-29-2024 14:11-0500 Systolic blood pressure 138 mm[Hg] Ifeoma Davis MD Work Phone: [facility] 09-24-2024 14:43-0500 Body mass index (BMI) [Ratio] 30.27 kg/m2 Michelle Elsy MENSWEAR SALESPERSON.[employer] Work Phone: [facility] 09-24-2024 14:43-0500 Body weight 72.67 kg Michelle Elsy MENSWEAR SALESPERSON.[employer] Work Phone: [facility] 09-24-2024 14:43-0500 Diastolic blood pressure 81 mm[Hg] Michelle Elsy MENSWEAR SALESPERSON.[employer] Work Phone: [facility] 09-24-2024 14:43-0500 Heart rate 101 /min Michelle Elsy MENSWEAR SALESPERSON.[employer] Work Phone: [facility] 09-24-2024 14:43-0500 SaO2% (BldA) [Mass fraction] 98 % Michelle Elsy MENSWEAR SALESPERSON.[employer] Work Phone: [facility] 09-24-2024 14:43-0500 Systolic blood pressure 122 mm[Hg] Michelle Elsy MENSWEAR SALESPERSON.[employer] Work Phone: [facility] 09-15-2024 10:09-0500 Body mass index (BMI) [Ratio] 29.85 kg/m2 Destiney Helder MENSWEAR SALESPERSON.[employer] Work Phone: [facility] 09-15-2024 10:09-0500 Body weight 71.67 kg Destiney Helder MENSWEAR SALESPERSON.[employer] Work Phone: [facility] 09-15-2024 10:09-0500 Diastolic blood pressure 66 mm[Hg] Destiney Helder MENSWEAR SALESPERSON.[employer] Work Phone: [facility] 09-15-2024 10:09-0500 Systolic blood pressure 118 mm[Hg] Destiney Helder MENSWEAR SALESPERSON.[employer] Work Phone: [facility] 07-08-2024 17:38-0500 Body mass index (BMI) [Ratio] 28.87 kg/m2 Letty Kay MENSWEAR SALESPERSON.[employer] Work Phone: [facility] 07-08-2024 17:38-0500 Body temperature 98.4 [degF] Letty Kay MENSWEAR SALESPERSON.[employer] Work Phone: [facility] 07-08-2024 17:38-0500 Body weight 69.3 kg Letty Kay MENSWEAR SALESPERSON.[employer] Work Phone: [facility] 07-08-2024 17:38-0500 Diastolic blood pressure 82 mm[Hg] Letty Kay MENSWEAR SALESPERSON.[employer] Work Phone: [facility] 07-08-2024 17:38-0500 Heart rate 109 /min Letty Kay MENSWEAR SALESPERSON.[employer] Work Phone: [facility] 07-08-2024 17:38-0500 Respiratory rate 18 /min Letty Kay MENSWEAR SALESPERSON.[employer] Work Phone: [facility] 07-08-2024 17:38-0500 SaO2% (BldA) [Mass fraction] 97 % Letty Kay MENSWEAR SALESPERSON.[employer] Work Phone: [facility] 07-08-2024 17:38-0500 Systolic blood pressure 128 mm[Hg] Letty Kay MENSWEAR SALESPERSON.[employer] Work Phone: [facility] 04-11-2024 11:57-0400 Body mass index (BMI) [Ratio] 28.78 kg/m2 Krislyn Aberegg PA Work Phone: [facility] 04-11-2024 11:57-0400 Body temperature 97.9 [degF] Krislyn Aberegg PA Work Phone: [facility] 04-11-2024 11:57-0400 Body weight 69.1 kg Krislyn Aberegg PA Work Phone: [facility] 04-11-2024 11:57-0400 Diastolic blood pressure 70 mm[Hg] Krislyn Aberegg PA Work Phone: [facility] 04-11-2024 11:57-0400 Heart rate 92 /min Krislyn Aberegg PA Work Phone: [facility] 04-11-2024 11:57-0400 Respiratory rate 16 /min Krislyn Aberegg PA Work Phone: [facility] 04-11-2024 11:57-0400 SaO2% (BldA) [Mass fraction] 97 % Krislyn Aberegg PA Work Phone: [facility] 04-11-2024 11:57-0400 Systolic blood pressure 122 mm[Hg] Krislyn Aberegg PA Work Phone: [facility] 03-31-2024 12:47-0400 Body height 154.9 cm Ifeoma Davis MD Work Phone: [facility] 03-31-2024 12:47-0400 Body mass index (BMI) [Ratio] 28.34 kg/m2 Ifeoma Davis MD Work Phone: [facility] 03-31-2024 12:47-0400 Body weight 68.04 kg Ifeoma Davis MD Work Phone: [facility] 03-31-2024 12:47-0400 Diastolic blood pressure 70 mm[Hg] Ifeoma Davis MD Work Phone: [facility] 03-31-2024 12:47-0400 Heart rate 80 /min Ifeoma Davis MD Work Phone: [facility] 03-31-2024 12:47-0400 Respiratory rate 16 /min Ifeoma Davis MD Work Phone: [facility] 03-31-2024 12:47-0400 Systolic blood pressure 128 mm[Hg] Ifeoma Davis MD Work Phone: [facility] 12-24-2023 12:58-0400 Body height 151.1 cm Destiney Houston MENSWEAR SALESPERSON.[employer] Work Phone: [facility] 12-24-2023 12:58-0400 Body mass index (BMI) [Ratio] 30.58 kg/m2 Destiney Houston MENSWEAR SALESPERSON.[employer] Work Phone: [facility] 12-24-2023 12:58-0400 Body weight 69.85 kg Destiney Houston MENSWEAR SALESPERSON.[employer] Work Phone: [facility] 12-24-2023 12:58-0400 Diastolic blood pressure 82 mm[Hg] Destiney Houston MENSWEAR SALESPERSON.[employer] Work Phone: [facility] 12-24-2023 12:58-0400 Systolic blood pressure 126 mm[Hg] Destiney Helder MENSWEAR SALESPERSON.[employer] Work Phone: [facility] 11-18-2023 10:09-0400 Body temperature 98.29 [degF] Adriana Young MENSWEAR SALESPERSON.[employer] Work Phone: [facility] 11-18-2023 10:09-0400 Body weight 70 kg Adriana Vidal MENSWEAR SALESPERSON.[employer] Work Phone: [facility] 11-18-2023 10:09-0400 Diastolic blood pressure 72 mm[Hg] Adriana Young MENSWEAR SALESPERSON.[employer] Work Phone: [facility] 11-18-2023 10:09-0400 Heart rate 80 /min Adriana Vidal MENSWEAR SALESPERSON.[employer] Work Phone: [facility] 11-18-2023 10:09-0400 Respiratory rate 18 /min Adriana Vidal MENSWEAR SALESPERSON.[employer] Work Phone: [facility] 11-18-2023 10:09-0400 SaO2% (BldA) [Mass fraction] 96 % Adriana Vidal MENSWEAR SALESPERSON.[employer] Work Phone: [facility] 11-18-2023 10:09-0400 Systolic blood pressure 124 mm[Hg] Adriana Young MENSWEAR SALESPERSON.[employer] Work Phone: [facility] 05-30-2023 14:00-0400 Diastolic blood pressure 81 mm[Hg] Andry Connelly MD Work Phone: [facility] 05-30-2023 14:00-0400 Heart rate 81 /min Andry Connelly MD Work Phone: [facility] 05-30-2023 14:00-0400 Respiratory rate 16 /min Andry Connelly MD Work Phone: [facility] 05-30-2023 14:00-0400 SaO2% (BldA) [Mass fraction] 99 % Andry Connelly MD Work Phone: [facility] 05-30-2023 14:00-0400 Systolic blood pressure 126 mm[Hg] Andry Connelly MD Work Phone: [facility] 05-30-2023 13:38-0400 Body temperature 98.1 [degF] Andry Connelly MD Work Phone: [facility] 05-30-2023 12:42-0400 Body height 152.4 cm Andry Connelly MD Work Phone: [facility] 05-30-2023 12:42-0400 Body mass index (BMI) [Ratio] 30.66 kg/m2 Andry Connelly MD Work Phone: [facility] 05-30-2023 12:42-0400 Body weight 71.22 kg Andry Connelly MD Work Phone: [facility] 05-21-2023 11:22-0400 Body height 149.9 cm Virginia Denbow PA-C Work Phone: [facility] 05-21-2023 11:22-0400 Body temperature 98.4 [degF] Virginia Denbow PA-C Work Phone: [facility] 05-21-2023 11:22-0400 Body weight 73.94 kg Virginia Denbow PA-C Work Phone: [facility] 05-21-2023 11:22-0400 Diastolic blood pressure 68 mm[Hg] Virginia Denbow PA-C Work Phone: [facility] 05-21-2023 11:22-0400 Heart rate 98 /min Virginia Denbow PA-C Work Phone: [facility] 05-21-2023 11:22-0400 Respiratory rate 12 /min Virginia Denbow PA-C Work Phone: [facility] 05-21-2023 11:22-0400 SaO2% (BldA) [Mass fraction] 99 % Virginia Denbow PA-C Work Phone: [facility] 05-21-2023 11:22-0400 Systolic blood pressure 124 mm[Hg] Virginia Denbow PA-C Work Phone: [facility] 04-30-2023 12:59-0400 Body height 149.9 cm Cande Kalka PA-C Work Phone: [facility] 04-30-2023 12:59-0400 Body weight 73.03 kg Cande Kalka PA-C Work Phone: [facility] 04-30-2023 12:59-0400 Diastolic blood pressure 72 mm[Hg] Cande Kalka PA-C Work Phone: [facility] 04-30-2023 12:59-0400 Heart rate 94 /min Cande Kalka PA-C Work Phone: [facility] 04-30-2023 12:59-0400 Systolic blood pressure 122 mm[Hg] Cande Kalka PA-C Work Phone: [facility] 10-16-2022 12:58-0500 Body height 152.4 cm Ifeoma Davis MD Work Phone: [facility] 10-16-2022 12:58-0500 Body temperature 97.81 [degF] Ifeoma Davis MD Work Phone: [facility] 10-16-2022 12:58-0500 Body weight 71.67 kg Ifeoma Davis MD Work Phone: [facility] 10-16-2022 12:58-0500 Diastolic blood pressure 70 mm[Hg] Ifeoma Davis MD Work Phone: [facility] 10-16-2022 12:58-0500 Heart rate 102 /min Ifeoma Davis MD Work Phone: [facility] 10-16-2022 12:58-0500 Respiratory rate 12 /min Ifeoma Davis MD Work Phone: [facility] 10-16-2022 12:58-0500 SaO2% (BldA) [Mass fraction] 97 % Ifeoma Davis MD Work Phone: [facility] 10-16-2022 12:58-0500 Systolic blood pressure 120 mm[Hg] Ifeoma Davis MD Work Phone: [facility] 06-25-2022 11:48-0400 Diastolic blood pressure 80 mm[Hg] Jonathon Eugene MD Work Phone: [facility] 06-25-2022 11:48-0400 Respiratory rate 16 /min Jonathon Eugene MD Work Phone: [facility] 06-25-2022 11:48-0400 SaO2% (BldA) [Mass fraction] 100 % Jonathon Eugene MD Work Phone: [facility] 06-25-2022 11:48-0400 Systolic blood pressure 141 mm[Hg] Jonathon Eugene MD Work Phone: [facility] 06-25-2022 11:36-0400 Body temperature 97.3 [degF] Jonathon Eugene MD Work Phone: [facility] 06-25-2022 09:44-0400 Body height 152.4 cm Jonathon Eugene MD Work Phone: [facility] 06-25-2022 09:44-0400 Body weight 70.31 kg Jonathon Eugene MD Work Phone: [facility] 06-25-2022 09:44-0400 Heart rate 92 /min Jonathon Eugene MD Work Phone: [facility] 06-20-2022 12:40-0400 Body height 152.4 cm Charlene Grossman MD Work Phone: [facility] 06-20-2022 12:40-0400 Body weight 70.31 kg Charlene Grossman MD Work Phone: [facility] 06-20-2022 12:40-0400 Diastolic blood pressure 70 mm[Hg] Charlene Grossman MD Work Phone: [facility] 06-20-2022 12:40-0400 Heart rate 88 /min Charlene Grossman MD Work Phone: [facility] 06-20-2022 12:40-0400 Respiratory rate 18 /min Charlene Grossman MD Work Phone: [facility] 06-20-2022 12:40-0400 SaO2% (BldA) [Mass fraction] 98 % Charlene Grossman MD Work Phone: [facility] 06-20-2022 12:40-0400 Systolic blood pressure 125 mm[Hg] Charlene Grossman MD Work Phone: [facility] 12-25-2021 13:03-0400 Body height 152.4 cm Ifeoma Davis MD Work Phone: [facility] 12-25-2021 13:03-0400 Body temperature 98.49 [degF] Ifeoma Davis MD Work Phone: [facility] 12-25-2021 13:03-0400 Body weight 73.03 kg Ifeoma Davis MD Work Phone: [facility] 12-25-2021 13:03-0400 Diastolic blood pressure 76 mm[Hg] Ifeoma Davis MD Work Phone: [facility] 12-25-2021 13:03-0400 Heart rate 100 /min Ifeoma Davis MD Work Phone: [facility] 12-25-2021 13:03-0400 Respiratory rate 12 /min Ifeoma Davis MD Work Phone: [facility] 12-25-2021 13:03-0400 SaO2% (BldA) [Mass fraction] 97 % Ifeoma Davis MD Work Phone: [facility] 12-25-2021 13:03040 Systolic blood pressure 132 mm[Hg] Ifeoma Davis MD Work Phone: [facility] 12-04-2021 13:040 Body height 152.4 cm Destiney Houston MENSWEAR SALESPERSON.[employer] Work Phone: [facility] 12-04-2021 13:040 Body weight 74.39 kg Destiney Houston MENSWEAR SALESPERSON.[employer] Work Phone: [facility] 12-04-2021 13:040 Diastolic blood pressure 72 mm[Hg] Destiney Helder MENSWEAR SALESPERSON.[employer] Work Phone: [facility] 12-04-2021 13:040 Systolic blood pressure 120 mm[Hg] Destiney Houston MENSWEAR SALESPERSON.[employer] Work Phone: [facility] Encounters Encounter Date Encounter Type Care Provider Facility Start: 07-13-2025 End: 07-13-2025 ambulatory STEPHENIE EDWIGE Facility:[facility] Start: 07-13-2025 ambulatory [facility] Facility:[facility] Start: 07-13-2025 End: 07-13-2025 ambulatory [facility] Facility:[facility] Start: 07-10-2025 End: 07-10-2025 Emergency department patient visit [facility] Facility:[facility] Start: 07-06-2025 End: 07-06-2025 ambulatory [facility] Facility:[facility] Start: 07-05-2025 End: 07-05-2025 Emergency department patient visit [facility] Facility:[facility] Start: 06-30-2025 End: 07-01-2025 Evaluation and management of inpatient [facility] Facility:[facility] Start: 06-29-2025 End: 06-29-2025 Emergency department patient visit [facility] Facility:[facility] Start: 06-23-2025 End: 06-23-2025 Emergency department patient visit [facility] Facility:[facility] Start: 06-21-2025 End: 06-21-[address] Phillip DELUCACat Scan [facility] Work Phone: Start: 06-21-2025 End: 06-21-2025 ambulatory [facility] Facility:[facility] Start: 06-17-2025 End: 06-17-2025 Emergency department patient visit Dr. Patti Piña DO -Emergency Department Work Phone: Start: 06-17-2025 Non-patient / Non-visit Dr. Jaja CORREIA -[facility] Work Phone: Start: 06-17-2025 Encounter for other preprocedural examination [facility] Start: 06-14-2025 End: 06-14-2025 ambulatory [facility] Facility:[facility] Start: 06-11-2025 ambulatory [facility] Facility :[facility] Start: 06-04-2025 End: 06-04-[address] Phillip Pozo DO -[facility] Work Phone: Start: 06-04-2025 End: 06-04-[address] Ifeoma Davis MD Work Phone: -[facility] Start: 06-03-2025 End: 06-03-[address] Michael Cameron MD -[facility] Work Phone: Start: 06-03-2025 End: 06-03-[address] Ifeoma Davis MD Work Phone: -[facility] Start: 05-27-2025 End: 05-27-2025 Emergency department patient visit Dr. Juan Manuel Turpin MD -Emergency Department Work Phone: Start: 05-27-2025 Patient encounter procedure IFEOMA DAVIS [facility] Start: 05-27-2025 End: 05-27-2025 ambulatory IFEOMA DAVIS Facility:[facility] Start: 05-17-2025 End: 05-17-2025 Telephone encounter Aislinn Reyes PA-C Work Phone: Pulmonary Medicine Comment on above: Refill Request Start: 05-07-2025 End: 05-07-[address] Ifeoma Davis MD Work Phone: -[facility] Start: 05-07-2025 End: 05-07-[address] Michael Cameron MD -[facility] Work Phone: Start: 05-07-2025 End: 05-07-2025 ambulatory [facility] Facility:[facility] Start: 04-28-2025 End: 04-29-2025 Telephone encounter Ifeoma Davis MD Work Phone: [facility] [place] Start: 04-22-2025 End: 04-22-2025 Telephone encounter Ifeoma Davis MD Work Phone: [facility] [place] Comment on above: Medication Problem Start: 04-22-2025 End: 04-22-2025 ambulatory [facility] Facility:[facility] Start: 04-22-2025 End: 04-22-2025 Office outpatient visit 25 minutes Ifeoma Davis MD Work Phone: [facility] [place] Comment on above: Intertrigo (Primary Dx); Status post glaucoma surgery; Primary hypertension; DAYSI (obstructive sleep apnea); PXE (pseudoxanthoma elasticum); Poison boo dermatitis Start: 04-20-2025 End: 04-20-2025 [facility] Facility:[facility] Start: 04-20-2025 End: 04-20-2025 Postop follow up visit related to original px Cynthia Ramos MD Work Phone: [facility] Comment on above: Follow-up examinatio n after eye surgery (Primary Dx); Secondary glaucoma, indeterminate stage, bilateral Start: 04-16-2025 End: 04-16-[address] Edgar Beltran MD -[facility] Start: 04-16-2025 End: 04-16-[address] Ifeoma Davis MD Work Phone: [facility] Start: 04-11-2025 End: 04-11-2025 Patient encounter procedure Aislinn Reyes PA-C Work Phone: [facility] [place] Comment on above: Viral URI with cough (Primary Dx) Start: 04-11-2025 End: 04-11-2025 ambulatory [facility] Facility:[facility] Start: 04-03-2025 End: 04-03-2025 Telephone encounter Shy Meier MD Work Phone: Ophthalmology Start: 04-02-2025 End: 04-02-2025 [facility] Facility:[facility] Start: 04-02-2025 End: 04-02-2025 Patient encounter [...] Work Phone: Ophthalmology Start: 03-25-2025 End: 03-25-2025 [facility] Facility:[facility] Start: 03-24-2025 End: 03-24-2025 [facility] Facility:[facility] Start: 03-24-2025 Encounter for other preprocedural examination [facility] Start: 03-24-2025 End: 03-24-2025 Admission to establishment [facility] 1 Work Phone: Pre Anesthesia Start: 03-24-2025 End: 03-24-2025 Anesthesia consultation [facility] [place] [facility] Work Phone: Pre Anesthesia Comment on [...] Start: 03-24-2025 End: 03-24-2025 Preprocedural examination done [facility] [place] [facility] Work Phone: [facility] Work Phone: Start: 03-24-2025 End: 03-24-2025 Telephone encounter Janet Lowery MD Work Phone: Ophthalmology Comment on above: Patient Question Start: 03-23-2025 End: 03-23-2025 Telephone encounter Cynthia Ramos MD Work Phone: [facility] Comment on above: Appointment (Urgent issue.) Start: 03-23-2025 End: 03-23-2025 Office consultation new/estab patient 60 min Janet Lowery MD Work Phone: Ophthalmology Comment on above: Leaking of conjuncti rah drainage bleb (Primary Dx) Start: 03-23-2025 End: 03-23-2025 ambulatory [facility] Facility:[facility] Start: 03-16-2025 End: 03-19-2025 ambulatory Ifeoma Davis MD Work Phone: Internal Medicine [place] [id number] Start: 03-10-2025 End: 03-10-[address] Edgar Beltran MD -[facility] Start: 03-10-2025 End: 03-10-[address] Ifeoma Davis MD Work Phone: -[facility] Start: 03-02-2025 End: 03-02-2025 Nursing evaluation of patient and report Mi Nurse Work Phone: Family Medicine [place] Comment on above: Immunization due (Pr imary Dx) Start: 03-02-2025 End: 03-02-2025 ambulatory [facility] Facility:[facility] Start: 03-01-2025 End: 03-02-2025 Telephone encounter Ifeoma Daivs MD Work Phone: Internal Medicine [place] Comment on above: Orders Start: 02-25-2025 End: 02-25-2025 Telephone encounter Ifeoma Davis MD Work Phone: Internal Medicine [place] Comment on above: TDAP order Start: 01-12-2025 End: 01-13-2025 Telephone encounter Michelle Chin APRN.LINEN SORTER Work Phone: Neurology Comment on above: DME Order Request Start: 12-30-2024 End: 12-30-2024 Telephone encounter Michelle Chin APRN.LINEN SORTER Work Phone: Neurology Comment on above: Results Start: 12-29-2024 End: 12-29-2024 Office outpatient visit 25 minutes Ifeoma Davis MD Work Phone: Internal Medicine [place] Comment on above: Primary hypertension (Primary Dx); Depression, unspecified depression type; Trigger finger, unspecified finger, unspecified laterality; Hypokalemia; Anxiety; Legally blind; Sleep apnea, unspecified type Start: 12-29-2024 End: 12-29-2024 ambulatory [facility] Facility:[facility] Start: 12-23-2024 End: 12-23-2024 Refill Ifeoma Davis MD Work Phone: [facility] [place] Comment on above: Refill Request Start: 12-17-2024 End: 12-17-2024 Follow-up encounter Michelle Chin APRN.LINEN SORTER Work Phone: Neurology Comment on above: Results Start: 12-09-2024 End: 12-09-[address] Phillip Pozo DO [facility] Work Phone: Start: 12-09-2024 End: 12-09-2024 ambulatory [facility] Facility:[facility] Start: 12-07-2024 End: 12-08-2024 Telephone encounter Ifeoma Davis MD Work Phone: Internal Medicine [place] Comment on above: Patient Question Start: 12-01-2024 End: 12-07-2024 Telephone encounter Michelle Chin APRN.LINEN SORTER Work Phone: Neurology Comment on above: Results Start: 11-24-2024 End: 11-24-[address] Ifeoma Davis MD Work Phone: [facility] Work Phone: Start: 11-24-2024 End: 11-24-2024 Patient encounter procedure Allie Acevesfield -Rad[facility], [place] Work Phone: Start: 11-24-2024 End: 11-24-[address] Edgar Beltran MD -[facility] Start: 11-24-2024 End: 11-24-2024 ambulatory [facility] Facility:[facility] Start: 11-24-2024 End: 11-24-2024 ambulatory [facility] Facility:[facility] Start: 11-20-2024 End: 11-20-2024 Telephone encounter David Anna APRN.LINEN SORTER Work Phone: Internal Medicine [place] Comment on above: Results, Lab Start: 11-19-2024 End: 11-19-2024 ambulatory [facility] Facility:[facility] Start: 11-19-2024 End: 11-19-2024 Patient encounter procedure David Anna APRN.LINEN SORTER Work Phone: Internal Medicine [place] Comment on above: Hypertension, unspec ified type (Primary Dx); Dry mouth; Depression, unspecified depression type; Anxiety; Other fatigue; DAYSI (obstructive sleep apnea) Start: 11-17-2024 End: 12-18-2024 Patient encounter procedure Sleep Lab [address] [facility] Comment on above: Snoring; Excessive daytime sleepiness; Non-restorative sleep; PLMD (periodic limb movement disorder); Primary hypertension Start: 11-17-2024 End: 11-17-2024 ambulatory [facility] Start: 11-05-2024 End: 11-05-2024 Follow-up encounter Ifeoma Davis MD Work Phone: Geriatrics Start: 11-03-2024 End: 11-03-2024 ambulatory [facility] Facility:[facility] Start: 11-03-2024 End: 11-03-2024 Office outpatient visit 25 minutes Ifeoma Davis MD Work Phone: Internal Medicine [place] Comment on above: Vitamin D deficiency (Primary Dx); Dry mouth; Vitamin B12 deficiency; Iron deficiency; Other fatigue Start: 11-02-2024 End: 11-02-2024 Follow-up encounter Britta ESCUDERO Work Phone: [facility] Start: 10-31-2024 End: 10-31-2024 ambulatory [facility] Facility:[facility] Start: 10-31-2024 End: 10-31-2024 Patient encounter procedure Chantal Alvarez MENSWEAR SALESPERSON.LINEN SORTER Work Phone: [facility] Comment on above: Dysuria (Primary Dx) ; Acute lower UTI Start: 10-22-2024 End: 12-22-2024 Follow-up encounter Destiney Pendleton APRN.CNP Work Phone: OB/Gynecology Start: 10-21-2024 End: 10-21-2024 ambulatory [facility] Facility:[facility] Start: 10-21-2024 Encounter for gynecological examination (general) (routine) without abnormal findings IFEOMA DAVIS [facility] Start: 10-21-2024 End: 10-21-2024 Patient encounter status Screen [facility] Start: 10-21-2024 End: 10-21-2024 Subsequent hospital visit by physician Screen Mammo [facility] Comment on above: Encounter for gyneco logical examination (general) (routine) without abnormal findings [Z01.419] Start: 10-13-2024 End: 10-13-2024 ambulatory [facility] Facility:[facility] Start: 10-13-2024 End: 10-13-2024 Office outpatient visit 15 minutes Cynthia Ramos MD Work Phone: [facility] Comment on above: Secondary glaucoma, indeterminate stage, bilateral (Primary Dx); Angioid streaks of macula; Pseudoxanthoma elasticum Start: 10-12-2024 End: 10-12-2024 ambulatory [facility] Facility:[facility] Start: 10-12-2024 End: 10-12-2024 Office outpatient visit 25 minutes Ifeoma Davis MD Work Phone: Internal Medicine [place] Comment on above: Anxiety (Primary Dx) ; Screening for depression; Encounter for screening examination for other mental health and behavioral disorders; Dry mouth; Insomnia, unspecified type; Current moderate episode of major depressive disorder without prior episode (HCC) Start: 10-07-2024 End: 10-07-2024 ambulatory [facility] Facility:[facility] Start: 10-07-2024 End: 10-07-2024 Patient encounter procedure Calli M Zabrina MENSWEAR SALESPERSON.LINEN SORTER Work Phone: Internal Medicine [place] Comment on above: Memory impairment (P rimary Dx); Dry mouth; Depression, unspecified depression type Start: 10-07-2024 End: 10-12-2024 Telephone encounter Ifeoma Davis MD Work Phone: Internal Medicine [place] Comment on above: Future Appointment Patient Question Start: 09-29-2024 End: 09-29-2024 [facility] Facility:[facility] Start: 09-29-2024 End: 09-29-2024 Office outpatient visit 25 minutes Ifeoma Davis MD Work Phone: Internal Medicine [place] Comment on above: Depression, unspecif ied depression type (Primary Dx); Encounter for immunization; Insomnia, unspecified type Start: 09-25-2024 End: 04-10-2025 Telephone encounter Michelle Chin APRN.LINEN SORTER Work Phone: Neurology Comment on above: Is Manager - O ther Start: 09-24-2024 End: 09-24-2024 Patient encounter procedure Michelle Chin APRN.LINEN SORTER Work Phone: Neurology Comment on above: Excessive daytime sl eepiness (Primary Dx); Non-restorative sleep Start: 09-24-2024 End: 09-24-2024 [facility] Facility:[facility] Start: 09-15-2024 End: 09-15-2024 ambulatory [facility] Facility:[facility] Start: 09-15-2024 End: 09-15-2024 Patient encounter procedure Destiney Pendleton MENSWEAR SALESPERSON.LINEN SORTER Work Phone: OB/Gynecology Comment on above: Vasomotor symptoms d ue to menopause (Primary Dx) Start: 09-08-2024 End: 09-08-2024 Refill Ifeoma Davis MD Work Phone: Internal Medicine [place] Comment on above: Refill Request Start: 08-12-2024 End: 04-13-2025 Telephone encounter Ifeoma Davis MD Work Phone: Internal Medicine [place] Comment on above: Patient Update Start: 08-10-2024 End: 08-10-2024 ambulatory [facility] [place] Start: 08-10-2024 End: 08-10-2024 Patient encounter procedure Akanksha Ross MA [facility] Comment on above: Population Health Na vigation Outreach ([facility]) Start: 07-27-2024 End: 08-05-2024 Telephone encounter Ifeoma Davis MD Work Phone: [facility] Comment on above: Results Start: 07-22-2024 End: 07-22-2024 ambulatory [facility] Facility:[facility] Start: 07-15-2024 End: 07-15-2024 ambulatory [facility] Facility:[facility] Start: 07-10-2024 End: 07-10-2024 Telephone encounter Ifeoma Davis MD Work Phone: [facility] Comment on above: Fax Request Start: 07-09-2024 End: 07-09-2024 Telephone encounter Adriana Vidal APRN.LINEN SORTER Work Phone: [place] [facility] Comment on above: Results Start: 07-08-2024 End: 07-08-2024 Patient encounter procedure Letty Kay APRN.LINEN SORTER Work Phone: [place] [facility] Comment on above: Close exposure to [place] VID-19 virus (Primary Dx) Start: 07-07-2024 End: 07-09-2024 Refill Ifeoma Davis MD Work Phone: Family [facility] Comment on above: Refill Request Orders Start: 06-29-2024 End: 06-30-2024 Refill Ifeoma Davis MD Work Phone: [facility] [place] Comment on above: Refill Request Start: 06-15-2024 End: 06-15-2024 ambulatory Chana Bridges MA [facility] [place] Start: 06-15-2024 End: 06-15-2024 Patient encounter procedure Ch[facility] Bridges [facility] Comment on above: Population Health Na vigation Outreach (Med Adherence) Start: 06-12-2024 End: 06-12-2024 [facility] [place] Start: 06-12-2024 End: 06-12-2024 [facility] Comment on above: Population Health Na vigation Outreach ([facility]) Start: 05-29-2024 End: 05-29-2024 ambulatory Eileen Quinteros [facility] [place] Start: 05-29-2024 End: 05-29-2024 Patient encounter procedure Eileen Quinteros [facility] Comment on above: Population Health Na vigation Outreach (Med adherence ) Start: 05-14-2024 End: 06-29-2024 Telephone encounter Ifeoma Davis MD Work Phone: Internal Medicine [place] Comment on above: Patient Question Start: 05-06-2024 End: 05-11-2024 Telephone encounter Cynthia Ramos MD Work Phone: [facility] Comment on above: Letter Start: 05-01-2024 End: 05-06-2024 Telephone encounter Cynthia Ramos MD Work Phone: [facility] Comment on above: Letter Start: 2024 End: 2024 Refill Ifeoma Davis MD Work Phone: Internal Medicine [place] Comment on above: Refill Request Start: 04-13-2024 Telephone encounter Cynthia cheatham MD Work Phone: [facility] Comment on above: Patient Update Start: 04-11-2024 End: 04-11-2024 Patient encounter procedure Britta ESCUDERO Work Phone: [facility] Comment on above: Allergic contact roman matitis due to plants, except food (Primary Dx) Start: 04-02-2024 Telephone encounter Ifeoma deluna MD Work Phone: Internal Medicine [place] Comment on above: Results Start: 03-31-2024 End: 03-31-2024 Office outpatient visit 25 minutes Ifeoma Davis MD Work Phone: Internal Medicine [place] Comment on above: Annual wellness visi t (Primary Dx); 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 injury; Primary hypertension; Trigger finger, unspecified finger, unspecified laterality; Special screening examination for viral disease; Screening for HIV (human immunodeficiency virus); Legally blind; Mixed hyperlipidemia Start: 03-31-2024 End: 03-31-2024 Patient encounter procedure Ifeoma Davis MD Work Phone: [facility] Start: 03-17-2024 ambulatory Ifeoma Sampson Work Phone: Internal [facility] Start: 02-18-2024 End: 02-18-2024 Office outpatient visit 15 minutes Cynthia Ramos MD Work Phone: [place] [facility] Comment on above: Secondary glaucoma, indeterminate stage, bilateral (Primary Dx); Pseudoxanthoma elasticum; Angioid streaks of macula; Pseudophakia of both eyes; Legally blind Start: 01-01-2024 Refill David Anna APRN, .CNP Work Phone: Internal Medicine [place] Comment on above: Refill Request Start: 12-25-2023 Telephone encounter David Anna APRN.CNP Work Phone: Internal Medicine [place] Comment on above: Medication Request Start: 12-24-2023 End: 12-24-2023 Patient encounter procedure Destiney Pendleton APRN.CNP Work Phone: OB/Gynecology Comment on above: Encounter for gyneco logical examination (general) (routine) without abnormal findings (Primary Dx); Encounter for screening for human papillomavirus (HPV); Pap smear for cervical cancer screening; Encounter for screening mammogram for breast cancer Start: 12-24-2023 End: 12-24-2023 Patient encounter status Destiney Pendleton MENSWEAR SALESPERSON.LINEN SORTER Work Phone: [facility] Start: 12-04-2023 End: 12-04-[address] Ifeoma Davis Work Phone: [facility] Work Phone: Start: 12-04-2023 End: 12-04-[address] Ifeoma Davis Work Phone: [facility] Work Phone: Start: 11-18-2023 End: 11-18-2023 Patient encounter procedure Adriana King MURTAZA.LINEN SORTER Work Phone: [facility] Comment on above: Bacterial sinusitis (Primary Dx) Start: 11-13-2023 Refill Ifeoma Sampson Work Phone: Internal Medicine [place] Comment on above: Refill Request Start: 11-06-2023 End: 11-06-[address] Ifeoma Davis Work Phone: [facility] Work Phone: Start: 10-25-2023 ambulatory Alessandra Lora [facility] [place] Comment on above: Population Health Na vigation Outreach ([facility]) Start: 10-11-2023 Documentation procedure Mammog lien Coordinator [facility] Start: 10-11-2023 Letter encounter Mammography Coordinator [facility] Department Start: 10-10-2023 End: 10-10-2023 Subsequent hospital visit by physician Screen Mammo [facility] Comment on above: Encounter for screen ing mammogram for breast cancer [Z12.31] Start: 10-08-2023 Telephone encounter Ifeoma deluna MD Work Phone: Internal Medicine [place] Comment on above: Patient Update Start: 10-04-2023 ambulatory [facility] [place] Comment on above: Population Health Na vigation Outreach ([facility] ) Start: 07-23-2023 Refill Virginia Avalos PA-C Work Phone: Internal Medicine [place] Comment on above: Refill Request Start: 06-25-2023 Refill Ifeoma Sampson Work Phone: [address] [place] [address] Comment on above: Erroneous encounter- disregard Start: 05-30-2023 End: 05-30-2023 Subsequent hospital visit by physician Andry Connelly MD Work Phone: Ambulatory Surgery Comment on above: Gastroesophageal ref lux disease, unspecified whether esophagitis present [K21.9] Start: 05-27-2023 ambulatory Andry Connelly MD Work Phone: Ambulatory Surgery Start: 05-21-2023 End: 05-21-2023 Patient encounter procedure Virginia Avalos PA-C Work Phone: Internal Medicine [place] Comment on above: Legally blind (Prima ry Dx); PXE (pseudoxanthoma elasticum); Trigger finger, unspecified finger, unspecified laterality; Mixed hyperlipidemia; Primary hypertension; Swelling of both hands; Gastroesophageal reflux disease with esophagitis, unspecified whether hemorrhage Start: 05-07-2023 Telephone encounter Ifeoma deluna MD Work Phone: Internal Medicine [place] Comment on above: Handicapped Placard Renewal Start: 05-03-2023 Refill Calli Anna APRN, .CNP Work Phone: [facility] [place] Comment on above: Refill Request Start: 04-30-2023 End: 04-30-2023 Patient encounter procedure Cande Pozo PA-C Work Phone: Gastroenterology [place] Comment on above: Gastroesophageal ref lux disease, unspecified whether esophagitis present (Primary Dx); Change in bowel habits Start: 04-25-2023 End: 04-25-2023 Patient encounter procedure Massimo Roberts MD Work Phone: Orthopaedics Comment on above: Numbness and tinglin g in right hand (Primary Dx) Start: 04-09-2023 Telephone encounter Ifeoma deluna MD Work Phone: [facility] [place] Comment on above: requesting lab order Start: 02-19-2023 End: 02-19-2023 Office outpatient visit 15 minutes Cynthia Ramos MD Work Phone: [facility] Comment on above: Secondary glaucoma, indeterminate stage, bilateral (Primary Dx); Pseudoxanthoma elasticum; Pseudophakia of both eyes Start: 01-27-2023 Refill David Anna APRN, .CNP Work Phone: Internal Medicine [place] Comment on above: Refill Request Start: 01-01-2023 End: 01-01-2023 ambulatory [facility] Work Phone: Start: 01-01-2023 End: 01-01-2023 Discharged Recurring [facility]-Occupational Therapy Start: 12-12-2022 Refill Ifeoma Sampson Work Phone: [facility] Comment on above: Refill Request (SEE RX NOTES) Start: 12-04-2022 End: 12-04-2022 Postop follow up visit related to original px Cynthia Ramos MD Work Phone: [facility] Comment on above: Follow-up exam (Prim terra Dx); Vitreous prolapse of left eye Start: 11-22-2022 End: 11-22-2022 Postop follow up visit related to original px Cynthia Ramos MD Work Phone: [facility] Comment on above: Follow-up exam (Prim terra Dx) Start: 11-19-2022 End: 11-19-2022 Patient encounter procedure Taina Fan PA-C Work Phone: Orthopaedics Comment on above: Trigger ring finger of right hand (Primary Dx); Trigger middle finger of left hand Follow-up exam (Prim terra Dx) Start: 11-19-2022 Telephone encounter Henrik Chen MD Work Phone: [facility] Comment on above: Eye Problem Patient Question; Nu rse To Address Start: 11-16-2022 End: 11-16-2022 Patient encounter procedure Cynthia Ramos MD Work Phone: [facility] Comment on above: Follow-up exam (Prim terra Dx) Start: 11-13-2022 Telephone encounter Cynthia cheatham MD Work Phone: [facility] Comment on above: Appointment Start: 11-07-2022 End: 11-07-2022 ambulatory MASSIMO ROBERTS [facility] Start: 11-05-2022 Telephone encounter Massimo monterroso MD Work Phone: Orthopaedics Comment on above: Patient Question Start: 11-01-2022 Telephone encounter Massimo monterroso MD Work Phone: Orthopaedics Comment on above: Appointment (Siena ding regarding surgery) Start: 10-31-2022 End: 10-31-2022 ambulatory WOLF MASON Facility:[id number] Start: 10-31-2022 End: 10-31-2022 ambulatory Michelle Perez OT/L [facility] [place] Comment on above: Blindness right eye category 3, blindness left eye category 4 (Primary Dx); Complaints of difficulty with reading; Difficulty with household tasks; Impaired mobility and personal care; Personal care impairment Start: 10-29-2022 End: 10-29-2022 Patient encounter procedure [facility] [place] Work Phone: [facility] Comment on above: Nuclear sclerotic ca taract of left eye (Primary Dx) Start: 10-26-2022 Telephone encounter Cynthia cheatham MD Work Phone: [facility] Comment on above: Returning Patient's Call (ascan) Start: 10-23-2022 End: 10-23-2022 Subsequent hospital visit by physician [facility] Work Phone: Radiology Comment on above: Abnormal mammogram [ R92.8] Start: 10-17-2022 End: 10-17-2022 ambulatory WOLF MASON Facility:[id number] Start: 10-17-2022 End: 10-17-2022 ambulatory Michelle Perez OT/L [facility] [place] Comment on above: Difficulty with hous ehold tasks (Primary Dx); Blindness right eye category 3, blindness left eye category 4; Impaired mobility and personal care; Personal care impairment; Complaints of difficulty with reading Start: 10-16-2022 End: 10-16-2022 Patient encounter procedure Ifeoma aDvis MD Work Phone: [facility] [place] Comment on above: Gastroesophageal ref lux disease with esophagitis, unspecified whether hemorrhage (Primary Dx); Pre-operative clearance; Trigger finger, unspecified finger, unspecified laterality; Primary hypertension; Mixed hyperlipidemia; PAD (peripheral artery disease) (HCC); PXE (pseudoxanthoma elasticum); Hot flashes Start: 10-16-2022 End: 10-16-2022 Preoperative state Ifeoma Davis MD Work Phone: Internal Medicine [place] Start: 10-09-2022 Telephone encounter Liliya medrano MD Work Phone: Mammography Comment on above: Mammogram Result Favio l Back Start: 10-09-2022 End: 10-09-2022 Subsequent hospital visit by physician Judy [facility] [place] Work Phone: Radiology Start: 10-02-2022 Telephone encounter Ifeoma deluna MD Work Phone: Internal Medicine [place] Comment on above: Medication Request Start: 10-01-2022 End: 10-01-2022 Orders Only Massimo Roberts MD Work Phone: Orthopaedics Comment on above: Pain in both hands ( Primary Dx) Schedule Surgery Trigger ring finger of right hand (Primary Dx); Trigger middle finger of left hand Pain in both hands [ M79.641, M79.642] Start: 09-28-2022 Documentation procedure Mammog lien Coordinator [facility] Start: 09-28-2022 Letter encounter Mammography Coordinator [facility] Department Start: 09-28-2022 Telephone encounter Destiney davis APRN.CNP Work Phone: OB/Gynecology Comment on above: Orders Start: 09-27-2022 ambulatory Ifeoma Sampson Work Phone: Internal Medicine [place] Comment on above: Upcoming visit on Start: 01-26-2023 Patient encounter procedure Ifeoma Davis MD Work Phone: [facility] [place] Start: 09-27-2022 End: 09-27-2022 Subsequent hospital visit by physician Screen Mammo [facility] Comment on above: Encounter for screen ing mammogram for breast cancer [Z12.31] Start: 09-25-2022 End: 09-25-2022 Patient encounter procedure Cynthia Ramos MD Work Phone: [facility] Comment on above: Nuclear senile catar act of left eye (Primary Dx); Primary open angle glaucoma (POAG) of left eye, severe stage Start: 09-19-2022 End: 09-19-2022 ambulatory WOLFEmily MASON Facility:[id number] Start: 09-19-2022 Telephone encounter Wolf mclean OD Work Phone: [facility] Comment on above: Follow Up Phone Call Start: 09-19-2022 End: 09-19-2022 ambulatory Michelle Perez OT/L [facility] [place] Comment on above: Blindness right eye category 3, blindness left eye category 4 (Primary Dx); Difficulty with household tasks; Impaired mobility and personal care; Personal care impairment; Complaints of difficulty with reading Start: 08-16-2022 End: 08-16-2022 Patient encounter procedure Wolfemily Milesdonato OD Work Phone: [facility] Comment on above: Blindness right eye category 3, blindness left eye category 4 (Primary Dx); Pseudophakia, right eye; Combined forms of age-related cataract, left eye; Hyperopia of right eye Start: 08-10-2022 Refill Ifeoma aSmpson Work Phone: Internal Medicine [place] Comment on above: Refill Request Start: 07-24-2022 End: 07-24-2022 Patient encounter procedure Jonathon Eugene MD Work Phone: Ophthalmology Comment on above: Pseudophakia, right eye (Primary Dx) Start: 07-23-2022 Refill Destiney Pendleton APRN.CNP Work Phone: OB/Gynecology Comment on above: Refill Request Medication Problem ( flonase) Start: 07-04-2022 Telephone encounter Ifeoma deluna MD Work Phone: Internal Medicine [place] Comment on above: Patient Update Start: 07-03-2022 [...] Telephone encounter Jonathon graves MD Work Phone: [facility] Comment on above: Is Manager - O ther Cough Start: 06-26-2022 End: 06-26-2022 Patient encounter procedure Jonathon Eugene MD Work Phone: [facility] Comment on above: Pseudophakia (Primar y Dx) Start: 06-25-2022 ambulatory JONATHON EUGENE Facility: [facility] Start: 06-25-2022 End: 06-25-2022 Subsequent hospital visit by physician Jonathon Eugene MD Work Phone: [facility] Comment on above: 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 [H25.811]Photopsia [H53.19] Start: 06-22-2022 Refill Jonathon Eugene MD Work Phone: [facility] Comment on above: Refill Request (Pre- op drops) Medication Problem Start: 06-20-2022 Telephone encounter Jonathon graves MD Work Phone: [facility] Comment on above: Appointment Start: 06-20-2022 End: 06-20-2022 Patient encounter procedure Charlene Grossman MD Work Phone: [facility] Card[facility] [place] Comment on above: PXE (pseudoxanthoma elasticum) (Primary Dx); Obesity, Class I, BMI 30-34.9 Start: 05-11-2022 Refill Ifeoma Sampson Work Phone: [facility] Comment on above: Refill Request Patient Question (Re quest medication not on med list please) Start: 05-03-2022 End: 05-03-2022 Patient encounter procedure Massimo Roberts MD Work Phone: Orthopaedics Comment on above: Pain in both hands ( Primary Dx); Trigger middle finger of left hand; Trigger ring finger of right hand Start: 04-25-2022 Telephone encounter Jonathon graves MD Work Phone: [facility] Comment on above: Preparations For Sharath [...] encounter procedure Cynthia Ramos MD Work Phone: [facility] Comment on above: Primary open angle g laucoma (POAG) of both eyes, indeterminate stage (Primary Dx); Corneal dellen of left eye; Nuclear senile cataract of right eye Start: 03-20-2022 ambulatory Ifeoma Sampson Work Phone: Internal [facility] [place] Start: 03-14-2022 End: 03-14-2022 Patient encounter procedure Jonathon Eugene MD Work Phone: Ophthalmology Comment on above: Photopsia (Primary D x); Primary open angle glaucoma (POAG) of both eyes, indeterminate stage; Combined form of age-related cataract, both eyes; Marginal corneal ulcer of left eye; Angioid streaks of macula Start: 03-02-2022 Telephone encounter Jonathon graves MD Work Phone: [facility] Comment on above: Lab & Test Results Start: 02-27-2022 End: 02-27-2022 Patient encounter procedure Jonathon Eugene MD Work Phone: [facility] Comment on above: Photopsia (Primary D x); Primary open angle glaucoma (POAG) of both eyes, indeterminate stage; Combined form of age-related cataract, both eyes; Marginal corneal ulcer of left eye Start: 02-10-2022 Telephone encounter Alise Dejesus APRN.LINEN SORTER Work Phone: [facility] Comment on above: Results Start: 02-09-2022 Refill Ifeoma Sampson Work Phone: [facility] [place] Comment on above: Refill Request Start: 02-07-2022 Telephone encounter Jonathon graves MD Work Phone: [facility] Comment on above: Medication Problem Start: 01-12-2022 Refill Destiney Pendleton APRN.LINEN SORTER Work Phone: OB/Gynecology Comment on above: Refill Request Start: 12-25-2021 End: 12-25-2021 Patient encounter procedure Ifeoma Davis MD Work Phone: [facility] [place] Comment on above: PXE (pseudoxanthoma elasticum) (Primary Dx); Vertigo; Memory deficits; New daily persistent headache; Chronic mixed headache syndrome Start: 12-19-2021 End: 12-19-2021 Patient encounter procedure Cynthia Ramos MD Work Phone: [facility] Comment on above: Follow-up exam (Prim terra Dx); Photopsia; 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 Start: 12-07-2021 Telephone encounter Ifeoma deluna MD Work Phone: Internal Medicine [place] Comment on above: Patient Question Start: 12-04-2021 End: 12-04-2021 Patient encounter procedure Destiney Pendleton MENSWEAR SALESPERSON.LINEN SORTER Work Phone: OB/Gynecology Comment on above: Encounter for gyneco logical examination (general) (routine) without abnormal findings (Primary Dx); Encounter for screening mammogram for breast cancer Start: 12-04-2021 End: 12-04-2021 Patient encounter status Destiney Pendleton MENSWEAR SALESPERSON.LINEN SORTER Work Phone: OB/Gynecology Start: 11-28-2021 End: 11-28-2021 Patient encounter procedure Cynthia Ramos MD Work Phone: [facility] Comment on above: Follow-up exam (Prim [...] Work Phone: Start: 11-17-2024 Polysomnogram Michelle Chin APRN.LINEN SORTER Work Phone: Start: 10-31-2024 Urnls dip stick/tablet rgnt auto w/o microscopy [facility] Provider Start: 10-13-2024 Computerized ophthalmic imaging retina Cynthia Ramos MD Work Phone: Start: 10-12-2024 Adult depression screening assessment Michelle Chin APRN.LINEN SORTER Work Phone: Start: 03-27-2024 Lipid 1996 panel [...] real time with image limited Destiney Helder MENSWEAR SALESPERSON.LINEN SORTER Work Phone: Start: 10-23-2022 Digital breast tomosynthesis unilateral Destiney Houston MENSWEAR SALESPERSON.LINEN SORTER Work Phone: Start: 10-16-2022 Ecg routine ecg w/least 12 lds i&r only [facility] Provider Start: 10-15-2022 Lipid 1996 panel - Serum or Plasma Massimo Roberts MD Work Phone: Start: 10-09-2022 Radex shoulder complete minimum 2 views [facility] Provider Start: 10-01-2022 Radex hand minimum 3 views Massimo levin MD Work Phone: Start: 09-27-2022 End: 09-27-2022 Mammography Destiney Houston MENSWEAR SALESPERSON.LINEN SORTER Work Phone: Start: 06-29-2022 Computerized ophthalmic imaging [...] DTaP,Tdap,Td Vaccine (2 - Td or Tdap) [facility] Start: 03-27-2029 Lipid panel Lipid Screening [facility] Start: 12-23-2028 Screening for malignant neoplasm of cervix [facility] Start: 05-30-2028 Colonoscopy Colonoscopy [facility] Start: 05-30-2028 Colorectal Cancer Screening Colorectal Cancer Screening [facility] Start: 05-30-2028 Screening for malignant neoplasm of colon [facility] Start: 03-24-2028 Diabetes Screening Diabetes Screening [facility] Start: 11-20-2027 Diabetes Screening Diabetes Screening [facility] Start: 10-15-2027 Lipid 1996 panel - Serum or Plasma Lipid Screening [facility] Start: 10-15-2027 Lipid panel Lipid Screening [facility] Start: 10-15-2027 LIPID SCREEN LIPID SCREEN [facility] Start: 03-27-2027 Diabetes Screening Diabetes Screening [facility] Start: 08-15-2026 LIPID SCREEN LIPID SCREEN [facility] Start: 05-21-2026 Diabetes Screening Diabetes Screening [facility] Start: 05-04-2026 End: 10-11-2026 VISUAL FIELD 24-2 OU (BOTH EYES) VISUAL FIELD 24-2 OU (BOTH EYES) [facility] Imaging Routine Secondary glaucoma, indeterminate stage, bilateral Expected: 05/04/2026, Expires: 10/11/2026 [facility] Work Phone: Comment on above: Expected: 05/04/2026, Expires: Start: 04-22-2026 Annual PCP Team Chronic Disease Visit Annual PCP Team Chronic Disease Visit [facility] Start: 12-29-2025 Annual PCP Team Chronic Disease Visit Annual PCP Team Chronic Disease Visit [facility] Start: 12-29-2025 BP Controlled (<130/80) BP Controlled (<130/80) [facility] Start: 11-19-2025 Annual PCP Team Chronic Disease Visit Annual PCP Team Chronic Disease Visit [facility] Start: 11-19-2025 BP Controlled (<130/80) BP Controlled (<130/80) [facility] Start: 11-03-2025 Annual PCP Team Chronic Disease Visit Annual PCP Team Chronic Disease Visit [facility] Start: 11-03-2025 BP Controlled (<130/80) BP Controlled (<130/80) [facility] Start: 10-21-2025 Screening for malignant neoplasm of breast Mammogram Screening [facility] Start: 10-15-2025 DIABETES SCREEN DIABETES SCREEN [facility] Start: 10-12-2025 Annual PCP Team Chronic Disease Visit Annual PCP Team Chronic Disease Visit [facility] Start: 10-12-2025 Anxiety Screening Anxiety Screening [facility] Start: 10-12-2025 BP Controlled (<130/80) BP Controlled (<130/80) [facility] Start: 10-12-2025 Covid-19 Vaccine () Covid-19 Vaccine () [facility] Comment on above: Postponed from 05/03/2024 (Declined at t his time) Start: 10-12-2025 Depression Screening Depression Screening [facility] Start: 10-07-2025 Annual PCP Team Chronic Disease Visit Annual PCP Team Chronic Disease Visit [facility] Start: 10-07-2025 BP Controlled (<130/80) BP Controlled (<130/80) [facility] Start: 09-29-2025 Annual PCP Team Chronic Disease Visit Annual PCP Team Chronic Disease Visit [facility] Start: 09-15-2025 BP Controlled (<130/80) BP Controlled (<130/80) [facility] Start: 07-23-2025 End: 07-23-2025 Patient encounter procedure 07/23/2025 2:00 PM EST Office Visit Internal Medicine [place] [address] [place], [place] [id number] Ifeoma Davis MD [address] [place], [place] [id number] 3 month F/U [facility] [place] Comment on above: 3 month F/U Start: 07-10-2025 [facility] Start: 07-10-2025 End: 07-10-2025 Emergency department patient visit Departed Emergency -Emergency Department Work Phone: Start: 06-29-2025 SARS-CoV-2, Influenza & RSV (PCR) SARS-CoV-2, Influenza & RSV (PCR) [facility] Start: 06-29-2025 [facility] Start: 06-29-2025 Plain chest X-ray Chest 1 View (Portable) [facility] Start: 06-29-2025 End: 06-29-2025 Emergency department patient visit Departed Emergency -Emergency Department Work Phone: Start: 06-23-2025 [facility] Start: 06-23-2025 CT angiography of head and neck CTA Head AND Neck W/ Contrast [facility] Start: 06-23-2025 CT of head without contrast Brain/Head without Contrast [facility] Start: 06-23-2025 End: 06-23-2025 Emergency department patient visit Departed Emergency -Emergency Department Work Phone: Start: 06-21-2025 MRI of lower extremity Extremity Lower without Contra [facility] Start: 06-21-2025 Patient encounter procedure Registered Clinical -Cat Scan [facility] Work Phone: Start: 06-09-2025 End: 06-09-2025 Patient encounter procedure 06/09/2025 12:30 PM EDT Office Visit [facility] Op[facility] [address], [place] [address] Adriana Lund MD [address] [place] [address] Diagnostics[facility] [address] [address] 10 WEEK OUTCOME Ophthalmology Comment on above: 10 WEEK OUTCOME Start: 06-04-2025 Plain x-ray of pelvis and lower extremity HIP, UNI W/ Pelvis 2-3 Views [facility] Start: 06-04-2025 XR Pelvis and Hip Views [facility] Start: 05-27-2025 [facility] Start: 05-27-2025 End: 05-27-2025 Emergency department patient visit Departed Emergency -Emergency Department Work Phone: Start: 05-27-2025 End: 05-27-2025 Patient encounter procedure 05/27/2025 9:20 AM EDT Office Visit Internal Medicine [place] [address] [place] [address] Ifeoma Davis MD [address] [place] [address] Wellness [facility] [place] Comment on above: Wellness Start: 05-18-2025 End: 05-18-2025 Patient encounter procedure 05/18/2025 11:00 AM EDT Office Visit [facility] [address] [place] [address] Cynthia Ramos MD [address] [place], [place] [address] 4 week VaTa [facility] Comment on above: 4 week VaTa Start: 05-12-2025 End: 05-12-2025 Patient encounter procedure 05/12/2025 11:00 AM EDT Office Visit [facility] Op[facility] [address] [address] Adriana Lund MD [address] [place] [address] [facility] [address] [address] 6 WEEK OUTCOME Ophthalmology Comment on above: 6 WEEK OUTCOME Start: 05-03-2025 DIABETES SCREEN DIABETES SCREEN [facility] Start: 05-03-2025 Influenza vaccination [facility] Start: 04-28-2025 End: 04-28-2025 Patient encounter procedure 04/28/2025 11:00 AM EDT Office Visit [facility] Op[facility] [address] [address] Adriana Lund MD [address] [place] [address] Diagn[facility] [address] [address] 3 WEEK POST OP Ophthalmology Comment on above: 3 WEEK POST OP Start: 04-22-2025 End: 04-22-2025 Patient encounter procedure 04/22/2025 10:20 AM EDT Office Visit [facility] [place] [address] [place] [address] Ifeoma Davis MD [address] [place] [address] 3 month follow up [facility] [place] Comment on above: 3 month follow up Start: 04-20-2025 End: 04-20-2025 Patient encounter procedure 04/20/2025 9:30 AM EDT Office Visit [facility] [address] [place] [address] Cynthia Ramos MD [address] [place] [address] SP 6 months refraction HVF 24-2 large size V [facility] Comment on above: SP 6 months refraction HVF 24-2 large si ze V Start: 04-16-2025 X-ray of lumbosacral spine L/S Spine Bending Flex/Ext [facility] Start: 04-16-2025 XR Spine Lumbar and Sacrum Views [facility] Start: 04-12-2025 Subsequent hospital visit by physician 04/12/2025 Hospital Encounter Ophthalmology [address] [address] Janet Lowery MD [address] [place] [address] 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, T81.31XA] Ophthalmology Comment on above: Leaking of conjunctival drainage bleb [H 59.89, T81.31XA] Start: 04-11-2025 BP Controlled (<130/80) BP Controlled (<130/80) [facility] Start: 04-06-2025 End: 04-06-2025 Patient encounter procedure 04/06/2025 2:15 PM EDT Office Visit [facility] [address] [address] Janet Lowery MD [address] [place] [address] Diagnostics[facility] [address] [address] Michelle 04/06 for follow up Ophthalmology Comment on above: Michelle 04/06 for follow up Start: 04-02-2025 End: 04-02-2025 Patient encounter procedure Ophthalmology Comment on above: 1 WEEK POST OP Start: 03-31-2025 Annual PCP Team Chronic Disease Visit Annual PCP Team Chronic Disease Visit [facility] Start: 03-31-2025 BP Controlled (<130/80) BP Controlled (<130/80) [facility] Start: 03-30-2025 End: 03-30-2025 Patient encounter procedure 03/30/2025 2:00 PM EDT Office Visit [facility] [place] [address] [place] [address] Ifeoma Davis MD [address] [place] [address] 3 month follow up [facility] [place] Comment on above: 3 month follow up Start: 03-26-2025 End: 03-26-2025 Patient encounter procedure 03/26/2025 8:15 AM EDT Office Visit [facility] [address] [address] Adriana Lund MD [address] [place] [address] 1 DAY POST OP bleb leak repair OS Ophthalmology Comment on above: 1 DAY POST OP bleb leak repair OS Start: 03-25-2025 End: 03-25-2025 Admission to same day surgery center 03/25/2025 12:01 PM EDT - 03/25/2025 12:59 PM EDT Surgery Ophthalmology [address] [address] Adriana Lund MD [address] [place] [address] 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 Ophthalmology Comment on above: REV OR 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 WOUND EYE ANTERI OR SEGMENT MAJOR Start: 03-25-2025 End: 03-25-2025 Anesthesia consultation 03/25/2025 12:01 PM EDT Anesthesia Event Ophthalmology [address] [address] Marquita Aj SRNA Ophthalmology Start: 03-25-2025 Subsequent hospital visit by physician 03/25/2025 12:01 PM EDT Hospital Encounter Ophthalmology [address] [address] Adriana Lund MD [address] [place] [address] 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, T81.31XA] Ophthalmology Comment on above: Leaking of conjunctival drainage bleb [H 59.89, T81.31XA] Start: 03-25-2025 End: 03-25-2025 Revj/rpr oprative wound anterior segment [facility] Start: 03-24-2025 End: 03-24-2025 Patient encounter procedure Neurology Comment on above: 31-90 day follow up Start: 03-16-2025 End: 06-15-2025 Lipid 1996 panel - Serum or Plasma LIPID PANEL, FASTING Lab Routine Mixed hyperlipidemia Expected: 03/16/2025, Expires: 06/15/2025 [facility] Work Phone: Comment on above: Expected: 03/16/2025, Expires: Start: 03-10-2025 X-ray of lumbar spine, two or three views Lumbar Spine 2 or 3 Views [facility] Start: 03-10-2025 XR Lumbar spine 2 or 3 Views [facility] Start: 03-02-2025 End: 03-02-2025 Nursing evaluation of patient and report 03/02/2025 12:45 PM EDT Nurse Visit [facility] [place] [address] [place] [address] Nurse, Nh [address] [place] [address] Tdap Family [facility] Comment on above: Tdap Start: 03-01-2025 Influenza [facility] Comment on above: Postponed from 05/03/2024 (Declined at t his time) Start: 12-29-2024 End: 12-29-2024 Patient encounter procedure 12/29/2024 3:00 PM EDT Office Visit [facility] [place] [address] [place] [address] Ifeoma Davis MD [address] [place] [address] 6 week follow up [facility] [place] Comment on above: 6 week follow up Start: 11-27-2024 End: 02-26-2025 Basic metabolic 2000 panel - Serum or Plasma BASIC METABOLIC PANEL Lab Routine Hypokalemia Expected: 11/27/2024 (Approximate), Expires: 02/26/2025 [facility] Work Phone: Comment on above: Expected: 11/27/2024 (Approximate), Expi res: 02/26/2025 Start: 11-19-2024 End: 02-18-2025 Basic metabolic 2000 panel - Serum or Plasma [facility] Work Phone: Comment on above: Expected: 11/19/2024, Expires: Start: 11-19-2024 End: 11-19-2024 Patient encounter procedure 11/19/2024 1:00 PM EDT Office Visit [facility] [place] [address] [place], [place] [phone] David Anna APRN.LINEN SORTER [address] [place], [place] [phone] 2 wk follow up [facility] [place] Comment on above: 2 wk follow up Start: 11-17-2024 End: 11-17-2024 Patient encounter procedure 11/17/2024 9:00 PM EDT Office Visit [facility] [address] [place] [phone] Snoring [R06.83]; Excessive daytime sleepiness [G47.19]; Non-restorative sleep [G47.8]; PLMD (periodic limb movement disorder) [G47.61]; Primary hypertension [I10] [facility] Comment on above: Snoring [R06.83]; Excessive daytime slee piness [G47.19]; Non-restorative sleep [G47.8]; PLMD (periodic limb movement disorder) [G47.61]; Primary hypertension [I10] Start: 11-17-2024 BP Controlled (<130/80) BP Controlled (<130/80) [facility] Start: 11-03-2024 End: 02-02-2025 25-hydroxyvitamin D3 [Mass/volume] in Serum or Plasma [facility] Comment on above: Expected: 11/03/2024, Expires: Start: 11-03-2024 End: 02-02-2025 Cobalamin (Vitamin B12) [Mass/volume] in Serum or Plasma [facility] Comment on above: Expected: 11/03/2024, Expires: Start: 11-03-2024 End: 02-02-2025 Ferritin [Mass/volume] in Serum or Plasma [facility] Comment on above: Expected: 11/03/2024, Expires: Start: 11-03-2024 End: 02-02-2025 Iron and Iron binding capacity panel - Serum or Plasma [facility] Work Phone: Comment on above: Expected: 11/03/2024, Expires: Start: 11-03-2024 End: 11-03-2024 Patient encounter procedure 11/03/2024 2:00 PM EST Office Visit [facility] [place] [address] [place], [place] [phone] Ifeoma Davis MD [address] [place] [address] 1 month follow up [facility] [place] Comment on above: 1 month follow up Start: 11-03-2024 End: 02-02-2025 Thyrotropin [Units/volume] in Serum or Plasma [facility] Comment on above: Expected: 11/03/2024, Expires: Start: 11-03-2024 End: 02-02-2025 Thyroxine (T4) free [Mass/volume] in Serum or Plasma [facility] Comment on above: Expected: 11/03/2024, Expires: Start: 10-13-2024 End: 10-13-2024 Patient encounter procedure 10/13/2024 10:15 AM EST Office Visit [facility] [address] [place] [address] Cynthia Ramos MD [address] [place] [phone] SP 6 months VaTa and mac OCT [facility] Comment on above: SP 6 months VaTa and mac OCT Start: 10-12-2024 End: 10-12-2024 Patient encounter procedure 10/12/2024 3:00 PM EST Office Visit Internal Medicine [place] [address] [place] [address] Ifeoma Davis MD [address] [place], [place] [phone] follow up increase memory loss. decline in adls/ gait [facility] [place] Comment on above: follow up increase memory loss. decline in adls/ gait Start: 10-10-2024 Screening for malignant neoplasm of breast Mammogram Screening [facility] Start: 10-07-2024 End: 10-07-2024 Patient encounter procedure 10/07/2024 2:00 PM EST Office Visit Neurology [address] [place] [address] Michelle Chin APRN.LINEN SORTER [address] [place] [address] DAYSI (obstructive sleep apnea) [G47.33] Neurology Comment on above: DAYSI (obstructive sleep apnea) [G47.33] Start: 09-29-2024 End: 09-29-2024 Patient encounter procedure [facility] [place] Comment on above: 6 mo follow up; routine 6 mo follow up; rout ine - HTN focus [facility] Start: 09-27-2024 Annual PCP Team Chronic Disease Visit Annual PCP Team Chronic Disease Visit [facility] Start: 09-24-2024 End: 09-24-2024 Patient encounter procedure 09/24/2024 3:00 PM EST Office Visit Neurology [address] [place] [address] Michelle Chin APRN.LINEN SORTER [address] [place] [address] F/U Neurology Comment on above: F/U Start: 09-02-2024 Medicare Advantage Annual Wellness Visit Medicare Advantage Annual Wellness Visit [facility] Start: 08-18-2024 End: 08-18-2024 Patient encounter procedure 08/18/2024 12:45 PM EST Office Visit [facility] [address] [place] [address] Cynthia Ramos MD [address] [place] [address] SP 6 months VaTa and mac OCT [facility] Comment on above: SP 6 months VaTa and mac OCT Start: 08-15-2024 DIABETES SCREEN DIABETES SCREEN [facility] Start: 08-13-2024 End: 08-13-2024 Patient encounter procedure 08/13/2024 1:00 PM EST Office Visit Neurology [address] [place], [place] [phone] Michelle Chin APRN.LINEN SORTER [address] [place] [address] DAYSI (obstructive sleep apnea) [G47.33] Neurology Comment on above: DAYSI (obstructive sleep apnea) [G47.33] Start: 07-23-2024 End: 07-23-2024 Patient encounter procedure 07/23/2024 11:20 AM EST Office Visit Orthopaedics [address] [place], [place] [phone] Massimo Roberts MD [address] [place] [address] rt wrist discuss surgery Orthopaedics Comment on above: rt wrist discuss surgery Start: 06-29-2024 HPV TESTING HPV TESTING [facility] Start: 06-29-2024 PAP TESTING PAP TESTING [facility] Start: 06-29-2024 Screening for malignant neoplasm of cervix [facility] Start: 06-22-2024 Colonoscopy COLONOSCOPY [facility] Start: 06-22-2024 COLORECTAL CANCER SCREENING COLORECTAL CANCER SCREENING [facility] Start: 06-18-2024 End: 06-18-2024 Patient encounter procedure 06/18/2024 12:50 PM EDT Appointment Mammogram [address] [place], [place] [id number] Encounter for screening mammogram for malignant neoplasm of breast [Z12.31] Mammogram Comment on above: Encounter for screening mammogram for ma lignant neoplasm of breast [Z12.31] Start: 06-04-2024 End: 06-04-2024 Patient encounter procedure 06/04/2024 12:30 PM EDT Office Visit Vasculary Surgery [address] [place] [address] 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] Vasculary Surgery Comment on above: 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] Start: 05-21-2024 Annual PCP Team Chronic Disease Visit Annual PCP Team Chronic Disease Visit [facility] Start: 05-21-2024 BP Controlled (<130/80) BP Controlled (<130/80) [facility] in Start: 05-03-2024 Covid-19 Vaccine ( season) Covid-19 Vaccine () [facility] Start: 05-03-2024 Covid-19 Vaccine ( season) Covid-19 Vaccine ( season) [facility] Start: 05-03-2024 Influenza vaccination [facility] Start: 04-30-2024 BP CONTROLLED (<130/80) BP CONTROLLED (<130/80) [facility] in Start: 03-31-2024 End: 06-30-2024 Hepatitis C virus Ab [Presence] in Serum [facility] Work Phone: Comment on above: Expected: 03/31/2024, Expires: Start: 03-31-2024 End: 06-30-2024 HIV 1+2 Ab [Presence] in Serum or Plasma by Immunoassay [facility] Comment on above: Expected: 03/31/2024, Expires: Start: 03-31-2024 End: 03-31-2024 Patient encounter procedure Internal Medicine Yaya Comment on above: physical physical - AWV due Start: 03-17-2024 End: 06-16-2024 Basic metabolic 2000 panel - Serum or Plasma BASIC METABOLIC PANEL Lab Routine Hypertension Expected: 03/17/2024, Expires: 06/16/2024 [facility] Work Phone: Comment on above: Expected: 03/17/2024, Expires: Start: 03-17-2024 End: 06-16-2024 CBC panel - Blood by Automated count COMPLETE BLOOD COUNT Lab Routine Medication management Expected: 03/17/2024, Expires: 06/16/2024 [facility] Comment on above: Expected: 03/17/2024, Expires: Start: 03-17-2024 End: 06-16-2024 Lipid 1996 panel - Serum or Plasma LIPID PANEL BASIC Lab Routine Mixed hyperlipidemia Expected: 03/17/2024, Expires: 06/16/2024 [facility] Comment on above: Expected: 03/17/2024, Expires: Start: 02-18-2024 End: 02-18-2024 Patient encounter procedure 02/18/2024 12:30 PM EDT Office Visit OPHT [facility] [address] [place], [place] [id number] Cynthia Ramos MD [address] [place] [address] 6m follow up [facility] Comment on above: 6m follow up Start: 12-11-2023 BP CONTROLLED (<130/80) BP CONTROLLED (<130/80) [facility] Start: 10-16-2023 ANNUAL PCP TEAM CHRONIC DISEASE VISIT ANNUAL PCP TEAM CHRONIC DISEASE VISIT [facility] Start: 10-16-2023 BP CONTROLLED (<130/80) BP CONTROLLED (<130/80) [facility] Start: 09-27-2023 Mammography [facility] Start: 09-27-2023 Screening for malignant neoplasm of breast Mammogram Screening [facility] Start: 09-02-2023 Behavioral Health Screening Behavioral Health Screening [facility] Start: 09-02-2023 Depression Assessment Depression Assessment [facility] Start: 06-25-2023 BP CONTROLLED (<130/80) BP CONTROLLED (<130/80) [facility] Start: 06-20-2023 BP CONTROLLED (<130/80) BP CONTROLLED (<130/80) [facility] Start: 06-04-2023 ANNUAL PCP TEAM CHRONIC DISEASE VISIT ANNUAL PCP TEAM CHRONIC DISEASE VISIT [facility] Start: 05-03-2023 Covid-19 Vaccine () Covid-19 Vaccine ( season) [facility] Start: 05-03-2023 Influenza vaccination [facility] Start: 02-09-2023 BP CONTROLLED (<130/80) BP CONTROLLED (<130/80) [facility] Start: 12-25-2022 ANNUAL PCP TEAM CHRONIC DISEASE VISIT ANNUAL PCP TEAM CHRONIC DISEASE VISIT [facility] Start: 12-04-2022 BP CONTROLLED (<130/80) BP CONTROLLED (<130/80) [facility] Start: 10-23-2022 ANNUAL PCP TEAM CHRONIC DISEASE VISIT ANNUAL PCP TEAM CHRONIC DISEASE VISIT [facility] Start: 10-16-2022 End: 12-16-2022 Follitropin [Units/volume] in Serum or Plasma FSH BLD Lab Routine Hot flashes Expected: 10/16/2022, Expires: 12/16/2022 [facility] Work Phone: Comment on above: Expected: 10/16/2022, Expires: 3 Start: 09-27-2022 End: 11-27-2022 CBC W Auto Differential panel - Blood CBC + DIFF Lab Routine Annual physical exam Expected: 09/27/2022, Expires: 11/27/2022 [facility] Work Phone: Comment on above: Expected: 09/27/2022, Expires: 3 Start: 09-27-2022 End: 11-27-2022 Comprehensive metabolic 2000 panel - Serum or Plasma COMP METABOLIC PANEL Lab Routine Annual physical exam Expected: 09/27/2022, Expires: 11/27/2022 [facility] Work Phone: Comment on above: Expected: 09/27/2022, Expires: 3 Start: 09-27-2022 End: 11-27-2022 Lipid 1996 panel - Serum or Plasma LIPID PANEL BASIC Lab Routine Annual physical exam Expected: 09/27/2022, Expires: 11/27/2022 [facility] Work Phone: Comment on above: Expected: 09/27/2022, Expires: 3 Start: 09-27-2022 End: 11-27-2022 Thyrotropin [Units/volume] in Serum or Plasma TSH BLD Lab Routine Annual physical exam Expected: 09/27/2022, Expires: 11/27/2022 [facility] Work Phone: Comment on above: Expected: 09/27/2022, Expires: 3 Start: 09-02-2022 DEPRESSION ASSESSMENT DEPRESSION ASSESSMENT [facility] Start: 08-21-2022 Mammography MAMMOGRAM [facility] Start: 06-27-2022 End: 06-20-2023 Echocardiography ECHO Cardiology Routine PXE (pseudoxanthoma elasticum) Expected: 06/27/2022, Expires: 06/20/2023 [facility] Work Phone: Comment on above: Expected: 06/27/2022, Expires: 3 Start: 05-03-2022 Influenza vaccination [facility] Start: 03-20-2022 End: 05-20-2022 CBC panel - Blood by Automated count CBC Lab Routine Medication management Expected: 03/20/2022, Expires: 05/20/2022 [facility] Work Phone: Comment on above: Expected: 03/20/2022, Expires: 2 Start: 03-20-2022 End: 05-20-2022 Hemoglobin A1c in Blood HGB A1C Lab Routine Medication management Expected: 03/20/2022, Expires: 05/20/2022 [facility] Work Phone: Comment on above: Expected: 03/20/2022, Expires: 2 Start: 03-20-2022 End: 05-20-2022 SCHEDULE LAB TESTING SCHEDULE LAB TESTING Lab Routine Expected: 03/20/2022, Expires: 05/20/2022 [facility] Work Phone: Comment on above: Expected: 03/20/2022, Expires: 2 Start: 02-27-2022 End: 04-29-2022 Herpes simplex virus+Varicella zoster virus DNA [Presence] in Unspecified specimen by SUKUMAR with probe detection HSV 1,2/VZV AMP MOLECULAR DETECT Lab Routine Marginal corneal ulcer of left eye Expected: 02/27/2022, Expires: 04/29/2022 [facility] Work Phone: Comment on above: Expected: 02/27/2022, Expires: 2 Start: 02-27-2022 End: 04-29-2022 Nuclear Ab [Presence] in Serum by Immunoassay OLGA PANEL BLOOD SCRN Lab Routine Marginal corneal ulcer of left eye Expected: 02/27/2022, Expires: 04/29/2022 [facility] Work Phone: Comment on above: Expected: 02/27/2022, Expires: 2 Start: 09-02-2021 DEPRESSION ASSESSMENT DEPRESSION ASSESSMENT [facility] Start: 07-28-2019 Adult depression screening assessment DEPRESSION SCREENING [facility] Start: 2019 Pneumococcal Vaccine: 50+ (1 of 1 - PCV) Pneumococcal Vaccine: 50+ (1 of 1 - PCV) [facility] Start: 2019 SHINGRIX VACCINE (1 of 2) SHINGRIX VACCINE (1 of 2) [facility] Start: 2014 COLOGUARD (FIT-DNA) COLOGUARD (FIT-DNA) [facility] Start: [address] COLONOGRAPHY [facility] Start: 2014 FECAL OCCULT BLOOD FECAL OCCULT BLOOD [facility] Start: 2014 Screening for malignant neoplasm of colon [facility] Start: 2014 SIGMOIDOSCOPY SIGMOIDOSCOPY [facility] Start: 1988 Hepatitis B Vaccine (1 of 3 - 19+ 3-dose series) Hepatitis B Vaccine (1 of 3 - 19+ 3-dose series) [facility] Start: 1988 SHINGRIX VACCINE (1 of 2) SHINGRIX VACCINE (1 of 2) [facility] Start: 1988 Urine microalbumin profile [facility] Start: 1987 Anxiety Screening Anxiety Screening [facility] Start: 1987 BP CONTROLLED (<130/80) BP CONTROLLED (<130/80) [facility] Start: 1987 Depression Screening Depression Screening [facility] Start: 1987 HEPATITIS C SCREENING HEPATITIS C SCREENING [facility] Start: 1987 Hepatitis C screening Hepatitis C Screening [facility] Start: 1987 HIV SCREENING HIV SCREENING [facility] Start: 1987 HIV screening HIV Screening [facility] Start: 1981 COVID-19 VACCINE (1) COVID-19 VACCINE (1) [facility] Start: 1975 PNEUMOCOCCAL (1 - PCV) PNEUMOCOCCAL (1 - PCV) [facility] Start: 1974 COVID-19 VACCINE (#1) COVID-19 VACCINE (#1) [facility] Start: 1969 COVID-19 VACCINE (#1) COVID-19 VACCINE (#1) [facility] Start: 1969 HEPATITIS B (1 of 3 - 3-dose series) HEPATITIS B (1 of 3 - 3-dose series) [facility] Start: 1969 Hepatitis B Vaccine (1 of 3 - 3-dose series) Hepatitis B Vaccine (1 of 3 - 3-dose series) [facility] Bacteria identified in Urine by Culture BACTERIAL CULTURE, URINE Microbiology Routine Dysuria Ordered: 10/31/2024 [facility] Work Phone: Comment on above: Ordered: 10/31/2024 End: 04-30-2024 COLONOSCOPY DIAGNOSTIC COLONOSCOPY DIAGNOSTIC Endoscopy Routine Change in bowel habits 1 Occurrences starting 04/30/2023 until 04/30/2024 [facility] Work Phone: Comment on above: 1 Occurrences starting 04/30/2023 until 04/30/2024 CORNEAL TOPOGRAPHY A TLAS OU (BOTH EYES) CORNEAL TOPOGRAPHY ATLAS OU (BOTH EYES) [facility] Imaging Routine Nuclear sclerotic cataract of left eye 10/29/2022 1:13 PM EST [facility] Work Phone: CORNEAL TOPOGRAPHY PENTACAM OU (BOTH EYES) CORNEAL TOPOGRAPHY PENTACAM OU (BOTH EYES) [facility] Imaging Routine Nuclear sclerotic cataract of left eye 10/29/2022 1:12 PM EST [facility] Work Phone: COVID & INFLUENZA A/ B & RSV PCR, ROUTINE COVID & INFLUENZA A/B & RSV PCR, ROUTINE Microbiology Routine Close exposure to COVID-19 virus Ordered: 07/08/2024 [facility] Work Phone: Comment on above: Ordered: 07/08/2024 End: 07-12-2025 DBT Breast - bilateral screening GENOVEVA SCREENING W LILLY Radiology Routine Encounter for screening mammogram for malignant neoplasm of breast 1 Occurrences starting 06/12/2024 until 07/12/2025 [facility] Work Phone: Comment on above: 1 Occurrences starting 06/12/2024 until 07/12/2025 End: 10-28-2023 Diagnostic mammography computer-aided detcj uni GENOVEVA DIAGNOSTIC RT Radiology Routine Abnormal mammogram 1 Occurrences starting 09/28/2022 until 10/28/2023 [facility] Work Phone: Comment on above: 1 Occurrences starting 09/28/2022 until 10/28/2023 ECG B/O W INTERP (ME D OFFICE) ECG B/O W INTERP (MED OFFICE) ECG Routine PXE (pseudoxanthoma elasticum) Ordered: 06/20/2022 [facility] Work Phone: Comment on above: Ordered: 06/20/2022 End: 10-16-2023 ECG COMPLETE ECG COMPLETE ECG Routine Gastroesophageal reflux disease with esophagitis, unspecified whether hemorrhage 1 Occurrences starting 10/16/2022 until 10/16/2023 [facility] Work Phone: Comment on above: 1 Occurrences starting 10/16/2022 until 10/16/2023 ECG COMPLETE ECG COMPLETE ECG 10/16/2022 2:04 PM EST [facility] End: 04-30-2024 EGD DIAGNOSTIC EGD DIAGNOSTIC Endoscopy Routine Gastroesophageal reflux disease, unspecified whether esophagitis present 1 Occurrences starting 04/30/2023 until 04/30/2024 [facility] Work Phone: Comment on above: 1 Occurrences starting 04/30/2023 until 04/30/2024 EMG(NEURO/NI) EMG(NEURO/NI) EM G Routine Pain in both hands Ordered: 05/03/2022 [facility] Work Phone: Comment on above: Ordered: 05/03/2022 End: 04-25-2024 EMG(NEURO/NI) EMG(NEURO/NI) EMG Routine Numbness and tingling in right hand 1 Occurrences starting 04/25/2023 until 04/25/2024 [facility] Work Phone: Comment on above: 1 Occurrences starting 04/25/2023 until 04/25/2024 MG Breast Screening GENOVEVA SCREENIN G Radiology Routine Encounter for screening mammogram for breast cancer 10/10/2023 1:07 PM EST [facility] Work Phone: End: 01-22-2025 MG Breast Screening GENOVEVA SCREENING Radiology Routine Encounter for gynecological examination (general) (routine) without abnormal findings Encounter for screening mammogram for breast cancer 1 Occurrences starting 12/24/2023 until 01/22/2025 [facility] Work Phone: Comment on above: 1 Occurrences starting 12/24/2023 until 01/22/2025 MG Breast Screening GENOVEVA SCREENIN G Radiology Routine Encounter for gynecological examination (general) (routine) without abnormal findings Encounter for screening mammogram for breast cancer 10/21/2024 2:30 PM EST [facility] Work Phone: MR Lumbar spine [facility] End: 01-24-2023 Mri brain brain stem w/o w/contrast material MRI BRAIN WO/W IVCON Radiology Routine 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) Vertigo Memory deficits New daily persistent headache 1 Occurrences starting 12/25/2021 until 01/24/2023 [facility] Work Phone: Comment on above: 1 Occurrences starting 12/25/2021 until 01/24/2023 Oph bmtry prtl coher intrfrmtry io lens pwr favio 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 W/ IOL CALC OPHT Imaging Routine Combined forms of age-related cataract of both eyes Ordered: 04/03/2022 [facility] Work Phone: Comment on above: Ordered: 04/03/2022 OT PLAN OF CARE CERTIFICATION OT PLAN OF CARE CERTIFICATION Procedures Routine Difficulty with household tasks Impaired mobility and personal care Personal care impairment Complaints of difficulty with reading Blindness right eye category 3, blindness left eye category 4 Ordered: 09/19/2022 [facility] Comment on above: Ordered: 09/19/2022 PAP TEST PAP TEST Lab Rou ronnell Encounter for gynecological examination (general) (routine) without abnormal findings Encounter for screening for human papillomavirus (HPV) Pap smear for cervical cancer screening 12/24/2023 1:43 PM EDT [facility] Patient Education [facility] Work Phone: End: 07-09-2025 Polysomnogram POLYSOMNOGRAM (PSG) Procedures Routine DAYSI (obstructive sleep apnea) 1 Occurrences starting 07/09/2024 until 07/09/2025 [facility] Work Phone: Comment on above: 1 Occurrences starting 07/09/2024 until 07/09/2025 End: 10-08-2025 Polysomnogram POLYSOMNOGRAM (PSG) Procedures Routine Snoring Excessive daytime sleepiness Non-restorative sleep PLMD (periodic limb movement disorder) Primary hypertension 1 Occurrences starting 10/08/2024 until 10/08/2025 [facility] Work Phone: Comment on above: 1 Occurrences starting 10/08/2024 until 10/08/2025 End: 07-28-2023 Radiologic exam chest 2 views XR CHEST 2V FRONTAL/LAT Radiology Routine Acute cough 1 Occurrences starting 06/28/2022 until 07/28/2023 [facility] Work Phone: Comment on above: 1 Occurrences starting 06/28/2022 until 07/28/2023 Revj/rpr oprative wo und anterior segment 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 End: 01-03-2023 Screening mammography bi 2-view breast inc cad GENOVEVA SCREENING Radiology Routine Encounter for screening mammogram for breast cancer 1 Occurrences starting 12/04/2021 until 01/03/2023 [facility] Work Phone: Comment on above: 1 Occurrences starting 12/04/2021 until 01/03/2023 Tdap vaccine 7 yrs/> im TDAP VAC CINE, AGE 7+ YR (ADACEL, BOOSTRIX) Immunization/Injection Routine Need for vaccination Ordered: 03/01/2025 [facility] Work Phone: Comment on above: Ordered: 03/01/2025 End: 10-28-2023 Us breast uni real time with image limited US BREAST LTD RT Radiology Routine Abnormal mammogram 1 Occurrences starting 09/28/2022 until 10/28/2023 [facility] Work Phone: Comment on above: 1 Occurrences starting 09/28/2022 until 10/28/2023 End: 10-31-2023 XR HAND GENERAL 3V PA/LAT/OBL BILATERAL XR HAND GENERAL 3V PA/LAT/OBL BILATERAL Radiology Routine Pain in both hands 1 Occurrences starting 10/01/2022 until 10/31/2023 [facility] Work Phone: Comment on above: 1 Occurrences starting 10/01/2022 until 10/31/2023 XR HAND GENERAL 3V PA/LAT/OBL BILATERAL XR HAND GENERAL 3V PA/LAT/OBL BILATERAL Radiology Routine Pain in both hands 10/01/2022 2:14 PM EST [facility] Work Phone: XR Spine Lumbar and Sacrum Views [facility] Immunizations Immunization Date Immunization Notes Care Provider Adwoa matthews 03-02-2025 tetanus toxoid, redu leona diphtheria toxoid, and acellular pertussis vaccine, adsorbed Mi Nurse Work Phone: [facility] 02-25-2025 diphtheria, tetanus toxoids and acellular pertussis vaccine, unspecified formulation Ifeoma Davis MD Work Phone: [facility] Payers Date Payer Category Payer Self-pay [id number] 2021 Medicaid [id number] 2021 Medicaid [id number] 2020 Medicaid [id number] 2019 Medicare (Managed Care) BRADLY GALE[facility] [id number] 2017 Unknown [facility] [place] [facility] [id number] 2017-Present [phone] [address] [place] [address] [facility] [id number] 2017 Unknown [id number] 2017 Unknown [id number] 2014 Unknown [id number] Unknown [id number] 2.16.840.1.630303.3.579.2. 462 Unknown [id number] 2.16.840.1.513257.3.579.2. 462 Unknown [id number] 2.16.840.1.354359.3.579.2. 462 Unknown [id number] 2.16.840.1.449020.3.579.2. 462 Unknown [id number] 2.16.840.1.576067.3.579.2. 462 Unknown [id number] 2.16.840.1.641884.3.579.2. 462 Unknown [id number] 2.16.840.1.742220.3.579.2. 462 Unknown [id number] 2.16.840.1.463227.3.579.2. 462 Unknown [id number] 2.16.840.1.037979.3.579.2. 462 Unknown [id number] 2..840.1.983214.3.579.2. 462 Unknown [id number] 2.16.840.1.431645.3.579.2. 462 Unknown [id number] 2.16.840.1.600404.3.579.2. 462 Unknown [id number] 2.16.840.1.445611.3.579.2. 462 Unknown [id number] 2.16.840.1.868415.3.579.2. 462 Unknown [id number] 2.16.840.1.432799.3.579.2. 462 Unknown [id number] 2.16.840.1.156200.3.579.2. 462 Unknown [id number] 2.16.840.1.951236.3.579.2. 462 Unknown [id number] 2.16.840.1.998891.3.579.2. 462 Unknown [id number] 2.16.840.1.135963.3.579.2. 462 Unknown [id number] [id number]. 462 Social History Date Type Detail Facility Start: 12-09-2014 End: 07-10-2025 Tobacco smoking status NHIS Never smoked tobacco [facility] Work Phone: Start: 11-28-2021 End: 04-22-2025 Alcohol intake Current non-drinker of alcohol (finding) [facility] Start: 11-21-2020 History SDOH Social Connections Phone 5 [facility] Start: 11-21-2020 History SDOH Social Connections Rastafari 3 [facility] Start: 11-21-2020 History SDOH Social Connections Membership 1 [facility] Start: 11-21-2020 History SDOH Physica l Activity DPW 7 [facility] Start: 11-21-2020 History SDOH Physica l Activity MPS 2 [facility] Start: 1970 Sex Assigned At Not on file [facility] Start: 12-15-2021 End: 06-25-2022 Exposure to SARS-CoV-2 (event) Not sure [facility] Work Phone: Start: 12-09-2014 End: 03-24-2025 Tobacco use and exposure Smokeless tobacco non-user [facility] Start: 1970 Sex Assigned At Female [facility] Start: 11-20-2021 End: 11-06-2023 Tobacco smoking status NHIS Unknown if ever smoked [facility] Start: 11-21-2020 End: 12-24-2023 History of Social function [facility] Work Phone: Start: 11-21-2020 End: 12-24-2023 Social connection and isolation panel [facility] Work Phone: Do you belong to any clubs or organizations such as bahai groups, unions, fraternal or athletic groups, or school groups? Yes [facility] Work Phone: Are you now , , , , never or living with a partner? [facility] Work Phone: Start: 08-03-2012 Adult Depression Screening Assessment 0 [facility] Work Phone: Do you feel stress - tense, restless, nervous, or anxious, or unable to sleep at night because your mind is troubled all the time - these days [OSQ] Only a little [facility] Work Phone: Start: 09-18-2022 Gender identity Identifies as female gender (finding) [facility] Start: 09-18-2022 Sexual orientation Heterosexual (fin ding) [facility] Start: 11-30-2024 Sex Female (finding) [facility] NEGATED: Highlighted rowStart: MICHAEL History of tobacco use Passive smoker [facility] Medical Equipment Procedure Code Equipment Code Equipment Origin al Text Equipment Identifier Dates Lens Acrysof Ultrasert +14.5 Diopter Acrylic Iol 1 Piece Foldable Uv Blue - [id number] Start: 06-25-2022 Lens Acrysof Ultrasert +15.5 Diopter Acrylic Iol 1 Piece Foldable Uv Blue - [id number] Start: 11-15-2022 Functional Status Date Assessment Result Facility 12-14-2014 Are you deaf, or do you have serious difficulty hearing No 12/14/2014 10:27 AM Celeste Bass LPN No [facility] 12-14-2014 Are you blind, or do you have serious difficulty seeing, even when wearing glasses Yes 12/14/2014 10:27 AM Celeste Bass LPN Yes [facility] 12-14-2014 Do you have serious difficulty walking or climbing stairs No 12/14/2014 10:27 AM Celeste Bass LPN No [facility] 12-14-2014 Do you have difficul ty dressing or bathing No 12/14/2014 10:27 AM Celeste Bass LPN No [facility] 12-14-2014 Because of a physica l, mental, or emotional condition, do you have difficulty doing errands alone such as visiting a physician's office or shopping No 12/14/2014 10:27 AM Celeste Bass LPN No [facility] Mental Status Date Assessment Result Facility 11-08-2025 Cognitive function Level Of Cons ciousness Awake [facility] Work Phone: 06-29-2025 Cognitive function Level Of Cons ciousness Awake [facility] Work Phone: 06-23-2025 Cognitive function Level Of Cons ciousness Awake [facility] Work Phone: 06-17-2025 Cognitive function Level Of Cons ciousness Awake [facility] Work Phone: 12-14-2014 Because of a physica l, mental, or emotional condition, do you have serious difficulty concentrating, remembering, or making decisions No 12/14/2014 10:27 AM EDT Celeste Gomez LPN No [facility] Clinical Notes 11-28-2021 to 07-13-2025 Note Date & Type Note Facility 07-13-[address] [facility] 07-13-[address] [facility] 07-06-[address] [facility] 07-06-[address] [facility] 07-05-2025 Note HNO ID: [id number] Author: CATIE LINDSEY RT(R) Service: ? Author Type: Technologist Type: Progress Notes Filed: 07/05/2025 15:55 Note Text: xray: chest [facility] 07-02-[address] [facility] 07-01-[address] [facility] 07-01-[address] [facility] 06-30-[address] [facility] 06-30-[address] [facility] 06-30-[address] [facility] 06-23-2025 Discharge summary [facility] 06-23-2025 Radiology Diagnostic study note [facility] Imaging Services [address], [place] [id number] Brain/Head without Contrast MR#: [id number] Acct: [id number] Name: ALLIE LYNN Rep #: [id number] : 1970 F 55 From: Eric June MD PCP: Dr. Ifeoma Davis MD Status: REG E R Study:Brain/Head without Contrast Date of Exa m: 06/23/25 Exam# [id number] Ordering Dr: Geovanni Rosen DO PROCEDURE: CT [...] subarachnoid spaces are normal in size. Absent table mountain ocular lenses. Intact skull base and calvarium. [...] or high-grade stenosis. No aneurysm. Reading Location: [id number] CC: Dr. Geovanni Sorto DO; Dr. Ifeoma Davis MD ~ Crm Analyst: Signed [facility] 06-23-2025 Radiology Diagnostic study note [facility] Imaging Services [address] [place] [address] CTA Head AND Neck W/ Contrast MR#: [id number] Acct: [id number] Name: ALLIE LYNN Rep #: [id number] : 1970 F 55 From: [facility] franki June MD PCP: Dr. Ifeoma Davis MD Status: REG E R Study:CTA Head AND Neck W/ Contrast Date of E xam: 06/23/25 Exam# [id number] Ordering Dr: Geovanni Rosen DO PROCEDURE: CT [...] subarachnoid spaces are normal in size. Absent table mountain ocular lenses. Intact skull base and calvarium. [...] or high-grade stenosis. No aneurysm. Reading Location: [id number] CC: Dr. Geovanni Sorto DO; Dr. Ifeoma Davis MD ~ Crm Analyst: Signed [facility] 06-23-2025 Discharge summary Note Date/Time June 23, 2025 10:15pm [facility] Medical Records Department [address] [place] [address] Emergency Department Summary 06/23/25 MR#: [id number] Acct: [id number] Name: ALLIE LYNN Rep #:[id number] : 1970 55 From: Geovanni cody DO [...] intact Psych: Cooperative, appropriate [facility] and [facility] (Updated 06/23/25 @ 20:49 [...] mg-325 0.5 - 1 tab PO TID MS N pain 03/10/25 Unknown History mg tablet cyclobenzaprine 10 mg tablet 10 mg PO HS MUSCLE SPASM 06/04/25 Unknown History Lactobacillus 25 billion 1 cap PO DAILY SUPPLMENT 06/26 Unknown History cell-Bifido 25 billion hbow-KPC-zeptp capsule cevimeline 30 mg capsule 1 cap [...] tramadol HCl (From Ultram) AdvReac Other Verified 10/22/25 17:26 Family History Father Lung cancer Mother [...] artery. Vascular surgery, Dr. Hinojosa was consulted. [place] that this was a chronic occlusion. Recommended [...] (Auto) 67.2 Lymph % (Auto) 17.9 L [place] % (Auto) 11.9 H Eos % (Auto) [...] or high-grade stenosis. No aneurysm. Reading Location: [facility] Head/Neck CTA 06/23/25 19:05 IMPRESSION: No [...] or high-grade stenosis. No aneurysm. Reading Location: [facility] Discharge Plan Triage Chief Complaint: Headache [...] mg capsule 1 cap PO DAILY Lacto no.99-Qpgiyz-FPA-larch 25B cell-25B cell-50 mg capsule 1 cap PO DAILY Primary Care Provider: Ifeoma Davis Referrals: Ifeoma Davis MD [Primary Care Provider, Internal Medicine] - 3-5 Days Activity Restrictions/Additional Instructions: Follow-up with your primary care physician. Return back to ED if symptoms change or worsen. Print Language: Iranian Disposition Disposition: Home, Self Care Discharge Date/Time: 06/23/25 21:15 What to do if you have Problems For any increased pain, shortness of breath, bleeding, nausea or vomiting, chestpain, or any unexpected problems, contact your Primary Care Provider. Call [facility] ([phone]) or report to the closest Emergency Room. Call 911 if necessary. 06/24/25 002 <Electronically signed by Geovanni Sorto DO> Cosigner Signature (if applicable): CC: Dr. Ifeoma Davis MD ~ Signed [facility] Work Phone: 1(752) 829-184610-16-2025 Discharge summary [facility] Medical Records Department [address] [place] [address] Emergency Department Summary 06/17/25 MR#: [id number] Acct: [id number] Name: ALLIE LYNN Rep #:[id number] : 1970 55 From: Patti Piña DO [...] too high risk to have the surgery. [facility] Medical History (Updated 06/17/25 @ 19:32 by [...] mg-325 0.5 - 1 tab PO TID MS N pain 03/10/25 Unknown History mg tablet cyclobenzaprine 10 mg tablet 10 mg PO HS MUSCLE SPASM 06/04/25 Unknown History Lactobacillus 25 billion 1 cap PO DAILY SUPPLMENT 06/26 Unknown History cell-Bifido 25 billion cpzp-MWA-wqhae capsule cevimeline 30 mg capsule 1 cap [...] she believes with a vascular surgeon in [facility] next Saturday which is in [...] provider Patti Piña 06/17/2025 at 6 p.m. MULTIMEDIA COORDINATOR. Reading Location: [facility] Head/Neck CTA 06/17/25 18:12 IMPRESSION: 1. [...] provider Patti Piña 06/17/2025 at 6 p.m. MULTIMEDIA COORDINATOR. Reading Location: [facility] Discharge Plan Triage Chief Complaint: Headache [...] mg capsule 1 cap PO DAILY Lacto no.86-Tnzbrd-ZUV-larch 25B cell-25B cell-50 mg capsule 1 cap PO DAILY Primary Care Provider: Ifeoma Davis Referrals: Ifeoma Davis MD [Primary Care Provider, Internal Medicine] Quincy Hinojosa MD [Med Staff - Active Staff, Vascular Surgery] - 5-7 Days Print Language: Iranian Disposition Disposition: Home, Self Care What to do if you have Problems For any increased pain, shortness of breath, bleeding, nausea or vomiting, chestpain, or any unexpected problems, contact your Primary Care Provider. Call [facility] ([phone]) or report tothe closest Emergency Room. Call 911 if necessary. 06/17/252232 Cosigner Signature (if applicable): CC: Dr. Ifeoma Davis MD ~ Signed [facility]10-16-2025 Radiology Diagnostic study note [facility] Imaging Services [address] [place] [address] Brain/Head without Contrast MR#: [id number] Acct: [id number] Name: ALLIE LYNN Rep #: [id number] : 1970 F 55 From: [facility] franki June MD PCP: Dr. Ifeoma Davis MD Status: REG E R Study:Brain/Head without Contrast Date of Exa m: 06/17/25 Exam# [id number] Ordering Dr: Stacey Piña DO PROCEDURE: CT [...] subarachnoid spaces are normal in size. Absent table mountain ocular lenses. Intact skull base and calvarium. [...] provider Patti Piña 06/17/2025 at 6 p.m. MULTIMEDIA COORDINATOR. Reading Location: [facility] CC: Dr. Ifeoma Davis MD; Dr. Patti Piña DO ~ Crm Analyst: Signed [facility]10-16-2025 Radiology Diagnostic study note [facility] Imaging Services [address] [place], [place] [id number] CTA Head AND Neck W/ Contrast MR#: [id number] Acct: [id number] Name: ALLIE LYNN Rep #: [id number] : 1970 F 55 From: Eric June MD PCP: Dr. Ifeoma Davis MD Status: REG E R Study:CTA Head AND Neck W/ Contrast Date of E xam: 06/17/25 Exam# [id number] Ordering Dr: Stacey Piña DO PROCEDURE: CT [...] subarachnoid spaces are normal in size. Absent table mountain ocular lenses. Intact skull base and calvarium. [...] provider Patti Piña 06/17/2025 at 6 p.m. MULTIMEDIA COORDINATOR. Reading Location: [id number] CC: Dr. Ifeoma Davis MD; Dr. Patti Piña, DO ~ Crm Analyst: [facility]igned [facility] [id number] Discharge summary Author Patti Piña [facility] Note Date/Time June 17, 2025 7 :48pm [facility] Medical Records Department [address] [place] [address] Emergency Department Summary 06/17/25 MR#: [id number] Acct: [id number] Name: ALLIE LYNN Rep #:[id number] : 1970 55 From: Patti Piña DO [...] too high risk to have the surgery. [facility] Medical History (Updated 06/17/25 @ 19:32 by [...] mg-325 0.5 - 1 tab PO TID MS N pain 03/10/25 Unknown History mg tablet cyclobenzaprine 10 mg tablet 10 mg PO HS MUSCLE SPASM 06/04/25 Unknown History Lactobacillus 25 billion 1 cap PO DAILY SUPPLMENT 06/26 Unknown History cell-Bifido 25 billion hvli-GCA-kgbfr capsule cevimeline 30 mg capsule 1 cap [...] she believes with a vascular surgeon in [facility] next Saturday which is in [...] provider Patti Piña 06/17/2025 at 6 p.m. MULTIMEDIA COORDINATOR. Reading Location: [id number] Head/Neck CTA 06/17/25 18:12 IMPRESSION: 1. No [...] provider Patti Piña 06/17/2025 at 6 p.m. MULTIMEDIA COORDINATOR. Reading Location: [facility] Discharge Plan Triage Chief Complaint: Headache [...] mg capsule 1 cap PO DAILY Lacto no.73-Qvidlq-IZC-larch 25B cell-25B cell-50 mg capsule 1 cap PO DAILY Primary Care Provider: Ifeoma Davis Referrals: Ifeoma Davis MD [Primary Care Provider, Internal Medicine] Quincy Hinojosa MD [Med Staff - Active Staff, Vascular Surgery] - 5-7 Days Print Language: Iranian Disposition Disposition: Home, Self Care What to do if you have Problems For any increased pain, shortness of breath, bleeding, nausea or vomiting, chestpain, or any unexpected problems, contact your Primary Care Provider. Call [facility] ([phone]) or report to the closest Emergency Room. Call 911 if necessary. 06/17/252232 <Electronically signed by Patti Piña DO> Cosigner Signature (if applicable): CC: Dr. Ifeoma Davis MD ~ Signed [facility] Work Phone: 1(381) 201-177409-26-[address] [facility] Discharge summary [facility] Medical Records Department [address] [place] [address] Emergency Department Summary 05/27/25 MR#: [id number] Acct: [id number] Name: ALLIE LYNN Rep #:[id number] : 1970 55 From: Juan Manuel Turpin [...] QDAY 12/09/24 Unkn own History omega-3 720 tb-cgf-krf-fish cap PO 12/09/24 Unknown Hi story oil-vit [...] mg-325 0.5 - 1 tab PO TID MS N pain 03/10/25 Unknown History mg tablet [...] narrative: Patient has a concussion. Per the Barbadian CT head rule and [place] rule imaging is not indicated. Patient was [...] mg tablet 200 mg PO QDAY vitamin B41-yzjwc acid 500-400 mcg tablet 1 tab PO QDAY Rx Instructions: administer with a meal fi-5-lds-epa-fish oil-vit D3 720 mg- 25 mcg capsule [...] Internal Medicine] - As Needed Print Language: Iranian Disposition Disposition: Home, Self Care What to do if you have Problems For any increased pain, shortness of breath, bleeding, nausea or vomiting, chestpain, or any unexpected problems, contact your Primary Care Provider. Call [facility] ([phone]) or report tothe closest Emergency Room. Call 911 if necessary. 05/27/251913 Cosigner Signature (if applicable): CC: Dr. Ifeoma Davis MD ~ Signed [facility]09-25-2025 Discharge summary Author Juan Manuel Turpin [facility] Note Date/Time May 27, 2025 7:14pm [facility] Medical Records Department [address] [place] [address] Emergency Department Summary 05/27/25 MR#: [id number] Acct: [id number] Name: ALLIE LYNN ANN Rep #:[id number] : 1970 55 From: Juan Manuel Turpin [...] Prior similar symptoms: No Recent [facility] Medical History Hip arthritis Degenerative scoliosis Lumbar [...] QDAY 12/09/24 Unkn own History omega-3 720 jg-oqt-jwl-fish cap PO 12/09/24 Unknown Hi story oil-vit [...] mg-325 0.5 - 1 tab PO TID MS N pain 03/10/25 Unknown History mg tablet [...] motor deficits and no sensory deficits noted [place] Coma Scale: document GCS findings Spontaneous Obeys [...] narrative: Patient has a concussion. Per the Barbadian CT head rule and [place] rule imaging is not indicated. Patient was [...] mg tablet 200 mg PO QDAY vitamin O87-qafcm acid 500-400 mcg tablet 1 tab PO QDAY Rx Instructions: administer with a meal dt-9-jpo-epa-fish oil-vit D3 720 mg- 25 mcg capsule [...] Internal Medicine] - As Needed Print Language: Iranian Disposition Disposition: Home, Self Care What to do if you have Problems For any increased pain, shortness of breath, bleeding, nausea or vomiting, chestpain, or any unexpected problems, contact your Primary Care Provider. Call [facility] ([phone]) or report to the closest Emergency Room. Call 911 if necessary. 05/27/251913 <Electronically signed by Juan Manuel Turpin MD> Cosigner Signature (if applicable): CC: Dr. Ifeoma Davis MD ~ Signed [facility] Work Phone: 1(924) 352-186909-25-[address] [facility] Telephone encounter Note* Telephone Encounter - Satish Hunter - 05/17/2025 4:44 PM EDT Images from the original note were not included. Fax received from [facility] dated 05/15/25, regarding New Rx Fax placed on provider desk for review/signature. [facility]09-15-2025 Miscellaneous Notes* Telephone Encounter - Satish Hunter - 05/17/2025 4:44 PM EDT Images from the original note were not included. Fax received from [facility] dated 05/15/25, regarding New Rx Fax placed on provider desk for review/signature. documented in this encounterOhio[facility]08-28-2025 Telephone encounter Note * Telephone Encounter - Mallory Morrison RN - 04/29/2025 8:26 AM EDT Call placed to patient and notified of below with verbalized understanding. Mallory Morrison RN [facility]08-28-2025 Miscellaneous Notes* Telephone Encounter - Mallory [...] advise, Mallory Morrison RN documented in this encounterOhiohealth Doctors Hospital08-27-2025 Telephone encounter Note * Telephone Encounter - Ifeoma Davis MD - 04/28/2025 5:22 PM EDT Filed the medication as requested [facility]08-27-2025 Telephone encounter Note* Telephone Encounter - Audra Peñaloza RN - 04/28/2025 4:42 PM EDT Pt called in to see if provider had called in a steroid for her. I let her know that the provider had not gotten to the message as of yet. Please call and advise. Audra Babulski, RN [facility]08-27-2025 Telephone encounter Note* Telephone Encounter - [...] Please review and advise, Mallory Morrison RN [facility]08-21-2025 Telephone encounter Note* Telephone Encounter - Jackie Freitas MA - 04/22/2025 3:41 PM EDT The following approved medication requests have been transmitted electronically. Requested Prescriptions Signed Prescriptions Disp Refills fluconazole (DIFLUCAN) 150 mg tablet 10 tablet 0 Sig: Take 1 tablet by mouth once daily for 10 days. Authorizing Provider: IFEOMA DAVIS MA [facility]08-21-2025 Miscellaneous Notes* Telephone Encounter - Jackie [...] Brennan RN - 04/22/2025 11:31 AM EDT [facility] called for clarification on Fluconazole 150 mg instructions: 1 tab daily for 10 days (repeat in 3 days if needed) # 10. Please clarify and let Liliana Javier know. documented in this encounterOhiohealth Doctors Hospital08-21-2025 Telephone encounter Note * Telephone Encounter - Ifeoma Davis MD - 04/22/2025 3:35 PM EDT I sent new rx. Ifeoma Flores MD [facility]08-21-2025 Telephone encounter Note* Telephone Encounter - Clint Brennan RN - 04/22/2025 11:31 AM EDT [facility] called for clarification on Fluconazole 150 mg instructions: 1 tab daily for 10 days (repeat in 3 days if needed) # 10. Please clarify and let Liliana Javier know. [facility]08-21-2025 Instructions* Patient Instructions* Ifeoma Davis MD - 04/22/2025 11:30 AM EDT We discussed your eye condition and recent surgery: - You reported ongoing issues with fluid leakage and discomfort following your eye surgery. The fluid leakage has improved, and your eye pressure is now stable. Continue following up with your eyeglass fitter as scheduled. - You mentioned a droopy [...] not improve. - Follow up with your eyeglass fitter as scheduled. - Attend your MRI appointment on May 07 for your hip. - Let me know if you would like to proceed with an ENT referral for the Inspire device. Please contact the office if you have any questions or concerns. documented in this encounterOhiohealth Doctors Hospital08-21-[address] [facility]08-21-2025 History of Present illness Narrative* Ifeoma [...] Allie recently underwent eye surgery at the [facility] due to a significant decrease in [...] also mentions a recent dental visit at [facility], where she discussed treatment options for [...] excuse any unintended typographical errors. Recording using Digital Air Strike software for draft documentation of the visit was discussed with the patient/authorized rental sales representative; all questions welcomed and answered. Patient/authorized rental sales representative agreed to proceed Ifeoma Davis MD [1] Social History Tobacco Use Smoking status: Never Passive exposure: Never Smokeless tobacco: Never Vaping Use Vaping status: Never Used Substance Use Topics Alcohol use: No Drug use: No documented in this encounterOhiohealth Doctors Hospital08-19-[address] 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 I have seen and examined this patient. I have discussed the case and the management of this patient's care with the Resident/Fellow/Cooking Instructor, if applicable. I also have reviewed and agree with the assessment and plan as stated above and agree with all of its relevant components. Cynthia Ramos MD April 20, 2025 11:06 AM documented in this encounterOhiohealth Doctors Hospital08-19-2025 Instructions* Patient Instructions* Cynthia Ramos MD [...] weeks total after surgery documented in this encounterOhiohealth Doctors Hospital08-15-2025 Evaluation note* Diagnosis Onset Date Resolution [...] f left hip acute June 04 10:59am [facility] Work Phone: 1(158) 515-746308-10-[address] [facility]08-10-2025 History of Present illness Narrative* Aislinn Reyes PA-C - 04/11/2025 1:39 PM EDT Images from the original note were not included. [facility] NOTE Ifeoma Davis MD [address] [facility] [address] Allie Lynn is a 54-year-old female with [...] the care of multiple specialists at [facility]. She also has a history of [...] Dr. Cynthia Ramos M.D. [place] [address] SOCIAL HISTORY[3] Physical Exam: BP 110/62 Pulse [...] agrees with the treatment plan. Recording using Digital Air Strike software for draft documentation of the visit was discussed with the patient/authorized rental sales representative; all questions welcomed and answered. Patient/authorized rental sales representative agreed to proceed. Aislinn Reyes, MPAS, PA-C MDM [1] Current Outpatient Medications [...] No Drug use: No documented in this encounterOhiohealth Doctors Hospital08-10-2025 Instructions* Patient Instructions* Aislinn Reyes PA-C [...] please contact our office. documented in this encounterOhiohealth Doctors Hospital08-02-2025 Telephone encounter Note * Telephone Encounter [...] concerns and asked them to call back [phone] at any time when available to discuss further. Shy Meier MD Ophthalmology Resident [facility] Work Phone: 1(220) 584-992308-02-2025 Miscellaneous Notes* Telephone Encounter - Shy Meier [...] concerns and asked them to call back [phone] at any time when available to discuss further. Shy Meier MD Ophthalmology Resident documented in this encounterOhiohealth Doctors Hospital08-01-2025 History of Present illness Narrative* Adriana [...] 03/29/2025 1:29 PM EDT documented in this encounterOhiohealth Doctors Hospital08-01-[address] [facility]07-30-2025 Telephone encounter Note* Telephone Encounter - Gely Plascencia - 03/31/2025 2:22 PM EDT patient called, she lost her White Cap eye medication, requesting a new script [facility] Work Phone: 1(909) 642-760307-30-2025 Miscellaneous Notes* Telephone Encounter - Gely Plascencia - 03/31/2025 2:22 PM EDT patient called, she lost her White Cap eye medication, requesting a new script documented in this encounterOhiohealth Doctors Hospital07-30-2025 Telephone encounter Note * Telephone Encounter - Ifeoma Davis MD - 03/31/2025 12:59 PM EDT Ordered as requested Regards, Ifeoma Davis MD [facility]07-30-2025 Miscellaneous Notes* Telephone Encounter - Ifeoma [...] advise, Mallory Morrison RN documented in this encounterOhiohealth Doctors Hospital07-30-2025 Telephone encounter Note * Telephone Encounter - Gely Plascencia - 03/31/2025 12:12 PM EDT I contacted the patient and left a voicemail informing her that you will be seeing her instead of the other physician. Just a heads-up. [facility] Work Phone: [phone]) [phone] Miscellaneous Notes* Telephone Encounter - Gely Plascencia [...] EDT YES. I can see her in [place] tomorrow (Sat) if she wants. Otherwise she has an appt Saturday with Dr. Ayala. I am on site and happy to come over if needed. * Telephone Encounter - Gely Plascencia - 03/30/2025 2:46 PM EDT The patient reports experiencing tearing from the left eye approximately four to five times daily. Is this considered normal? [phone] sx: 03/25/2025 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 [[id number]] - Eye - Left documented in this encounterOhiohealth Doctors Hospital07-30-2025 Telephone encounter Note * Telephone Encounter - Adriana Lund MD - 03/31/2025 12:03 PM EDT I moved her back to my Saturday clinic schedule - I will see her Saturday instead of Dr. Ayala [facility]07-30-2025 Telephone encounter Note* Telephone Encounter - [...] Please review and advise, Mallory Morrison RN [facility]07-30-2025 Telephone encounter Note* Telephone Encounter - Gely Plascencia - 03/31/2025 8:17 AM EDT The patient has requested that you visit on Saturday to examine her eye. [facility]07-29-2025 Telephone encounter Note* Telephone Encounter - Adriana Lund MD - 03/30/2025 5:23 PM EDT YES. I can see her in [place] tomorrow (Sat) if she wants. Otherwise she has an appt Saturday with Dr. Ayala. I am on site and happy to come over if needed. [facility]07-29-2025 Telephone encounter Note* Telephone Encounter - Gely Plascencia - 03/30/2025 2:46 PM EDT The patient reports experiencing tearing from the left eye approximately four to five times daily. Is this considered normal? [phone] sx: 03/25/2025 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 [[id number]] - Eye - Left [facility]07-28-2025 NoteHNO ID: [id number] Author: ADRIANA LUND MD Service: ? Author Type: Physician Type: Progress Notes Filed: 04/02/2025 10:40 Note Text:[facility]07-25-2025 Note* Addendum Note - Brittaney Mckeon MD - 03/26/2025 8:50 PM EDTAddended by: BRITTANEY MCKEON on: 03/26/2025 08:50 PM Modules accepted: Orders [facility]07-25-2025 Miscellaneous Notes* Addendum Note - Brittaney [...] The eye clinic can be reached at [phone] and you can ask to speak to the national accounts recruiter torpedoman's mate. Brittaney Mckeon MD Ophthalmology Resident, [facility] documented in this encounterOhiohealth Doctors Hospital07-25-2025 Telephone encounter Note * Telephone Encounter [...] The eye clinic can be reached at [phone] and you can ask to speak to the national accounts recruiter torpedoman's mate. Brittaney Mckeon MD Ophthalmology Resident, [facility]07-23-2025 History and physical note* Emily Chaparro APRN.LINEN SORTER - 03/24/2025 3:02 PM EDT Images from [...] Assessment: c/w statin PAD (peripheral artery disease) ([facility]) Assessment: 20-39% bilateral carotid artery stenosis per [...] large neck Non-male patient STOP-Bang Score: 3 [id number] Score: Age: <65 Sex: female CHF history: No Hypertension history: Yes Stroke/TIA/thromboembolism history: No Vascular disease history: Yes Diabetes history: No [id number] Score: 3 ARISCAT Score: Age: 51-80 Preoperative [...] visit for bleb leak OS Sent by [facility] doctor for bleb leak OS X [...] Neurological: +BPPV. No history of TIA's, stroke, DISTANCE LEARNING COORDINATOR tumor, impaired sensorium, hemiplegia, paraplegia or [...] pain, CHF, congenital heart defect, DVT/PE, recent NE, PTCA, open heart surgery and valve surgery. GI: Negative for: abdominal pain, dysphagia, GERD, hepatitis, irritable bowel syndrome, inflammatory bowel disease, liver disease, nausea, pancreatitis, vomiting and ETOH >2 drinks/day. : No history of dysuria, frequency or incontinence, stones or chronic kidney disease. No difficulty urinating, nocturia > 1 time per night or hematuria. NUTRITION SERVICES ASSISTANT: Negative for abnormal vaginal bleeding, abnormal vaginal [...] Dr. Cynthia Ramos M.D. S BALLOON,UTERINE ABLATION [address] FAMILY HISTORY Problem Relation Age of Onset Heart Father Age 61 Ovarian cancer Maternal Grandmother Heart Maternal Grandfather Cancer Paternal Grandmother Breast Heart Son NE Cancer Maternal Aunt 55 ovarian cancer Glaucoma [...] 8760 hours). Recent Results (from the past 76274 hours) ECHO Collection Time: 07/09/22 3:24 PM [...] 24, 2025 TIME: 3:02 PM PAGER/CONTACT #: [facility]07-23-[facility] History and physical note* Emily Chaparro APRN.CNP - 03/24/2025 3:02 PM EDT Images from the original note were not included. [place] [facility]est[facility] HISTORY [...] large neck Non-male patient STOP-Bang Score: 3 [id number] Score: Age: <65 Sex: female CHF history: No Hypertension history: Yes Stroke/TIA/thromboembolism history: No Vascular disease history: Yes Diabetes history: No [id number] Score: 3 ARISCAT Score: Age: 51-80 Preoperative [...] visit for bleb leak OS Sent by [facility] doctor for bleb leak OS X [...] Neurological: +BPPV. No history of TIA's, stroke, DISTANCE LEARNING COORDINATOR tumor, impaired sensorium, hemiplegia, paraplegia or [...] pain, CHF, congenital heart defect, DVT/PE, recent NE, PTCA, open heart surgery and valve surgery. GI: Negative for: abdominal pain, dysphagia, GERD, hepatitis, irritable bowel syndrome, inflammatory bowel disease, liver disease, nausea, pancreatitis, vomiting and ETOH >2 drinks/day. : No history of dysuria, frequency or incontinence, stones or chronic kidney disease. No difficulty urinating, nocturia > 1 time per night or hematuria. NUTRITION SERVICES ASSISTANT: Negative for abnormal vaginal bleeding, abnormal vaginal [...] Dr. Cynthia Ramos M.D. S BALLOON,UTERINE ABLATION 04164 FAMILY HISTORY Problem Relation Age of Onset Heart Father Age 61 Ovarian cancer Maternal Grandmother Heart Maternal Grandfather Cancer Paternal Grandmother Breast Heart Son NE Cancer Maternal Aunt 55 ovarian cancer Glaucoma [...] 8760 hours). Recent Results (from the past 93138 hours) ECHO Collection Time: 07/09/22 3:24 PM [...] 3:02 PM PAGER/CONTACT #: documented in this encounterOhiohealth Doctors Hospital07-23-2025 Instructions* Patient Instructions* Emily Chaparro APRN.CNP - 03/24/2025 3:02 PM EDT Images from the original note were not included. [facility] PATIENT PREOPERATIVE INSTRUCTIONS No ref. provider found has scheduled you for your procedure at this surgery center: [facility]: [phone] --[facility], [address], [place] [id number]. Please read below carefully for your personalized [...] office. If you are currently using a jvyh-klh-ebxv injectable or oral medication for diabetes or [...] Procedures: - YOU MUST HAVE A RESPONSIBLE BROOM MAKER TAKE YOU HOME. A ROUNDER AND BACKER OR ROAD CONTRACTOR CANNOT BE MADE A RESPONSIBLE BROOM MAKER. - We recommend that a responsible person [...] Advance Directive, please fax a copy to [phone] or email to for it to be [...] day. Emily Chaparro APRN.CNP documented in this encounterOhiohealth Doctors Hospital07-23-2025 Telephone encounter Note * Telephone Encounter [...] but called back today as documented below. [facility] Work Phone: 1(157) 575-187907-23-2025 Miscellaneous Notes* Telephone Encounter - Adriana Lund [...] 03/24/2025 9:40 AM EDT Allie Lynn CCF# [id number] Patient calling w/update BCL Contact not working Leaking fluid still, face is wet and sticky Janet Lowery MD filed at 03/23/2025 3:55 PM Status: Signed Urgent visit for bleb leak OS Sent by [facility] doctor for bleb leak OS X [...] 04/06 will revise 04/12 documented in this encounterOhiohealth Doctors Hospital07-23-2025 Telephone encounter Note * Telephone Encounter - Jackelin Fields - 03/24/2025 9:40 AM EDT Allie Lynn CCF# [id number] Patient calling w/update BCL Contact not working Leaking fluid still, face is wet and sticky Janet Lowery MD filed at 03/23/2025 3:55 PM Status: Signed Urgent visit for bleb leak OS Sent by [facility] doctor for bleb leak OS X [...] if still leaking 04/06 will revise 04/12 [facility] Work Phone: 1(935) 279-169007-22-2025 NoteDate of Procedure 03/23/2025. Audience Coordinator Information Steel Hanger: TOO. Notes Bleb leak [id number] NoteDate of Procedure 03/23/2025. Audience Coordinator Information Steel Hanger: TOO. 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 Notes No choroidals Document baseline disc [id number] NoteDate of Procedure 03/23/2025. Audience Coordinator Information Steel Hanger: TOO. Quality Right Eye Good. Left Eye Good. NFL Interpretation Right Eye Superior loss, Inferior loss. Left Eye Normal.[id number] NoteTable formatting from the original result was not included. Date of Procedure 03/23/2025. Notes Ophthalmology Exam Pachymetry (03/23/2025, 03/23/25) Right Left Thickness 543, 540 540,530 Edited by: Saranya Buchanan OA [id number] Instructions* Patient Instructions* Shyanne Parmar MD - 03/23/2025 3:07 PM EDT Please take timolol (yellow top) twice a day in the left eye And moxifloxacin (mora top) four times a day in the left eye documented in this encounterOhiohealth Doctors Hospital07-22-[address] [facility] History of Present illness Narrative* Janet Lowery MD - 03/23/2025 2:24 PM EDT Urgent visit for bleb leak OS Sent by [facility] doctor for bleb leak OS X [...] Janet Lowery MD 03/23/2025 documented in this encounterOhiohealth Doctors Hospital07-22-2025 Telephone encounter Note * Telephone Encounter - Barbie Alicea - 03/23/2025 10:46 AM EDT Appointment scheduled with at 12:30. Patient advised to arrive on empty stomach. States she did have a granola bar and took medications around 9 am. *documentation is in secure chatMick Alicea March 23, 2025 10:48 AM [facility]07-22-2025 Miscellaneous Notes* Telephone Encounter - Barbie [...] 07. Maybe its better to go to [facility] to be cared for Left message for patient to call the office to obtain the above information. Barbie Alicea reaching out to [facility] scheduling to find the availability of a senior payroll specialist to take over patient care with Dr. Ramos going out of the country. Janet Rivero RN March 23, 2025 10:00 AM * Telephone Encounter - Janet Rivero RN - 03/23/2025 9:50 AM EDT Spoke with patient. Sent the following message to Dr. Ramos in a Urgent Secure Chat regarding conversation: Received chart notes from [facility] Ankur Curtis MD. Patient has loose [...] 23, 2025 9:54 AM documented in this encounterOhiohealth Doctors Hospital07-22-2025 Telephone encounter Note * Telephone Encounter - Janet Rivero RN - 03/23/2025 9:55 AM EDT Response from Dr. Ramos: yes I can see her sooner but this needs urgent revision and [place]'m leaving for [place] morning[place] 07. Maybe its better to go to [facility] to be cared for Left message for patient to call the office to obtain the above information. Barbie Alicea reaching out to [facility] scheduling to find the availability of a senior payroll specialist to take over patient care with Dr. Ramos going out of the country. Janet Rivero RN March 23, 2025 10:00 AM [facility]07-22-2025 Telephone encounter Note* Telephone Encounter - Janet Rivero RN - 03/23/2025 9:50 AM EDT Spoke with patient. Sent the following message to Dr. Ramos in a Urgent Secure Chat regarding conversation: Received chart notes from [facility] nAkur Curtis MD. Patient has loose Exposed suture [...] Rivero RN March 23, 2025 9:54 AM [facility]07-09-2025 Evaluation note* Diagnosis Onset Date Resolution Status Admit Date 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 acute March 10, 2025 2 :26pm Greater trochanteric bursiti s of left hip acute March 10, 2025 2 :26pm Lumbar spondylosis acute March 102024 2:26pm [facility] Work Phone: 1(740) [phone] Evaluation note* Diagnosis Onset Date Resolution Status [...] 2:23pm Spondylolisthesis acute April 16, 2025 2:23pm [facility] Work Phone: 1(673) 228-578107-09-2025 Evaluation note* Diagnosis Onset Date Resolution Status [...] 3:14pm Spondylolisthesis acute June 03, 2025 3:14pm [facility] Work Phone: 1(799) 384-178707-09-2025 Evaluation note* Diagnosis Onset Date Resolution Status [...] f left hip acute June 04 10:59am [facility] Work Phone: 1([phone]) [phone] Telephone encounter Note* Telephone Encounter - YESI VARGHESE - 03/01/2025 7:55 AM EDT Patient scheduled for nurse visit 03/02/25 to receive TDAP vaccine. Please place order at this time. Yesi Varghese LPN [facility]06-30-2025 Miscellaneous Notes* Telephone Encounter - YESI VARGHESE - 03/01/2025 7:55 AM EDT Patient scheduled for nurse visit 03/02/25 to receive TDAP vaccine. Please place order at this time. Yesi Varghese LPN documented in this encounterOhiohealth Doctors Hospital06-26-2025 Telephone encounter Note * Telephone Encounter - Audra Peñaloza RN - 02/25/2025 1:26 PM EDT Pt called in and was asking if she was up to date on her TDAP vaccine, because she is going to visit her new grand baby. Please place the order for the vaccine as she will be coming in to get this with NE nurse on 03/03/25. Audra Peñaloza RN [facility]06-26-2025 Miscellaneous Notes* Telephone Encounter - Audra Peñaloza RN - 02/25/2025 1:26 PM EDT Pt called in and was asking if she was up to date on her TDAP vaccine, because she is going to visit her new grand baby. Please place the order for the vaccine as she will be coming in to get this with NE nurse on 03/03/25. Audra Peñaloza, RN documented in this encounterOhiohealth Doctors Hospital05-14-2025 Telephone encounter Note * Telephone Encounter - Janet Meza LPN - 01/13/2025 10:27 AM EDT Called and updated patient, patient will call back with alternate supplier Janet Meza LPN January 13, 2025 10:28 AM [facility]05-14-2025 Miscellaneous Notes* Telephone Encounter - Janet Meza LPN - 01/13/2025 10:27 AM EDT Called and updated patient, patient will call back with alternate supplier Janet Meza LPN January 13, 2025 10:28 AM * Telephone Encounter - Allie Mcknight LPN - 01/13/2025 9:12 AM EDT Roman from [facility] said they do not carry that item requested. * Telephone Encounter - Janet Meza LPN - 01/13/2025 8:10 AM EDT Faxed order to [facility] per patient request Janet Meza LPN January 13, 2025 8:10 AM * Telephone Encounter - Angelica Arreola RN - 01/12/2025 10:38 AM EDT Patient reports she has lost her blindness cane. States she spoke with her insurance company [employer] and they state for PCP to write a new order and send to DME company. Order pended for provider review. Please fax order to [facility]. Please call patient with an update. Angelica Arreola RN documented in this encounterOhiohealth Doctors Hospital05-14-2025 Telephone encounter Note * Telephone Encounter - Allie Mcknight LPN - 01/13/2025 9:12 AM EDT Roman from [facility] said they do not carry that item requested. [facility] Telephone encounter Note* Telephone Encounter - Janet Meza LPN - 01/13/2025 8:10 AM EDT Faxed order to [facility] per patient request Janet Meza LPN January 13, 2025 8:10 AM [facility]05-13-[facility]25 Telephone encounter Note* Telephone Encounter - Angelica Arreola RN - 01/12/2025 10:38 AM EDT Patient reports she has lost her blindness cane. States she spoke with her insurance company [employer] and they state for PCP to write a new order and send to DME company. Order pended for provider review. Please fax order to [facility]. Please call patient with an update. Angelica Arreola RN [facility]05-13-2025 Telephone encounter Note* Telephone Encounter - Germaine Berkowitz LPN - 01/12/2025 8:32 AM EDT CPAP supply order faxed. Germaine Berkowitz LPN [facility]05-13-2025 Miscellaneous Notes* Telephone Encounter - Germaine Berkowitz LPN - 01/12/2025 8:32 AM EDT CPAP supply order faxed. Germaine Berkowitz LPN documented in this encounterOhiohealth Doctors Hospital04-30-2025 Telephone encounter Note * Telephone Encounter [...] she is legally blind and doesn't drive. [facility]04-30-2025 Miscellaneous Notes* Telephone Encounter - Clint [...] results and sent her CPAP orders to [facility] in [place]. They should be reaching out to her [...] 30, 2024 8:39 AM documented in this encounterOhiohealth Doctors Hospital04-30-2025 Telephone encounter Note * Telephone Encounter - Letty Morales LPN - 12/30/2024 11:26 AM EDT TC to pt with no answer, left VM to return call. Please confirm if she is referring to her sleep study. I called patient on December 17 with the results and sent her CPAP orders to [facility] in [place]. They should be reaching out to her to set up machine. Letty Morales LPN [facility]04-30-2025 Telephone encounter Note* Telephone Encounter - Eve Tracey - 12/30/2024 8:38 AM EDT Patient calling in to let Michelle Chin know her results from her CPAP are now in her chart. She is asking if she had the chance to review them. Please review and advise patient. Eve Tracey December 30, 2024 8:39 AM [facility]04-29-[address] 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 She [...] excuse any unintended typographical errors. Recording using Digital [employer] software for draft documentation of the visit was discussed with the patient/authorized rental sales representative; all questions welcomed and answered. Patient/authorized rental sales representative agreed to proceed Ifeoma Davis MD documented in this encounterCleveland [id number] Telephone encounter Note * Telephone Encounter - [...] is changing pharmacies from mail order to [facility] so needs a new rx sent Sharifa Amaral RN December 23, 2024 12:45 PM [facility]04-23-[facility]25 Miscellaneous Notes* Telephone Encounter - Sharifa [...] is changing pharmacies from mail order to [facility] so needs a new rx sent Sharifa Amaral RN December 23, 2024 12:45 PM documented in this encounterOhiohealth Doctors Hospital04-17-2025 Telephone encounter Note * Telephone Encounter - Letty Morales LPN - 12/17/2024 2:56 PM EDT TC to pt who voiced understanding. Agreeable to [facility] in [place]. 31-90 day follow up made. Letty Morales LPN [facility]04-17-2025 Miscellaneous Notes* Telephone Encounter - Letty Morales LPN - 12/17/2024 2:56 PM EDT TC to pt who voiced understanding. Agreeable to [facility] in [place]. 31-90 day follow up made. Letty Morales LPN * Telephone Encounter - Michelle Chin APRN.CNP - 12/17/2024 1:24 PM EDT Please CALL pt with result of sleep study--it confirms that she has sleep apnea so I will prescribeautoCPAP for her. Will plan to send to [facility] unless she has another DME she wants to use. Michelle Chin APRN.CNP documented in this encounterOhiohealth Doctors Hospital04-17-2025 Telephone encounter Note * Telephone Encounter - Michelle Chin APRN.CNP - 12/17/2024 1:24 PM EDT Please CALL pt with result of sleep study--it confirms that she has sleep apnea so I will prescribeautoCPAP for her. Will plan to send to [facility] unless she has another DME she wants to use. Michelle Chin APRN.CNP [facility]04-09-2025 Evaluation note* Diagnosis Onset Date Resolution Status Admit Date Greater trochanteric bursiti s of left hip acute December 09, 2024 1:22pm Rotator cuff tendonitis acute A pril 2024 1:22pm [facility] Work Phone: [phone]) [phone] Telephone encounter Note* Telephone Encounter - Janet Meza LPN - 12/08/2024 10:05 AM EDT Called and left message for patient, on self identified voicemail Janet SusanaJOLIE December 08, 2024 10:05 AM [facility]04-08-2025 Miscellaneous Notes* Telephone Encounter - Janet Meza LPN - 12/08/2024 10:05 AM EDT Called and left message for patient, on self identified voicemail Janet JOLIE Meza December 08, 2024 10:05 AM * Telephone [...] advise, Dara Valdez RN documented in this encounterOhiohealth Doctors Hospital04-07-2025 Telephone encounter Note * Telephone Encounter - Ifeoma Davis MD - 12/07/2024 5:36 PM EDT Rx for her. Regards, Ifeoma Davis MD [facility]04-07-2025 Telephone encounter Note* Telephone Encounter - Jackie Freitas MA - 12/07/2024 11:35 AM EDT This was ordered by sleep provider: Michelle Chin. Results must come from ordering provider. Once sleep provider receives results the sleep office will contact patient. Jackie Freitas MA [facility]04-07-2025 Miscellaneous Notes* Telephone Encounter - Jackie [...] results. PSS reviewed provider's response in unread [facility] Message. Patient asking to be contacted as soon as results are in. She states she is struggling to sleep. * Telephone Encounter - Dara Valdez RN - 12/01/2024 8:58 AM EDT Patient calls and states that she was at [facility] for Sleep study on 11/17/2024. Patient asking about results for sleep study. Please review and advise, Dara Valdez RN documented in this encounterOhiohealth Doctors Hospital04-07-2025 Telephone encounter Note * Telephone Encounter [...] Please review and advise, Dara Valdez RN [facility]04-07-2025 Telephone encounter Note* Telephone Encounter - Rupa George - 12/07/2024 10:04 AM EDT Patient calling again for status update on sleep study results. PSS reviewed provider's response in unread Player[employer] Message. Patient asking to be contacted as soon as results are in. She states she is struggling to sleep. [facility]04-01-2025 Telephone encounter Note* Telephone Encounter - Dara Valdez RN - 12/01/2024 8:58 AM EDT Patient calls and states that she was at [facility] for Sleep study on 11/17/2024. Patient asking about results for sleep study. Please review and advise, Dara Valdez RN [facility]03-25-2025 Radiology Diagnostic study note [facility] Imaging Services [address], [place] [address] Hip Min 2 Views (Portable) MR#: [id number] Acct: [id number] Name: ALLIE LYNN Rep #: [id number] : 1970 F 54 From: Benton Weathers DO PCP: Dr. Ifeoma Davis MD Status: REG C WALLY Study:Hip Min 2 Views (Portable) Date of Exam : 11/24/24 Exam# [id number] Ordering Dr: Allie Prakash PROCEDURE: HIP MIN [...] of the left groin region. Reading Location: [id number] CC: Allie Prakash; Dr. Ifeoma Davis MD ~ Crm Analyst: Signed [facility]03-21-2025 Telephone encounter Note* Telephone Encounter - Audra Peñaloza RN - 11/20/2024 12:46 PM EDT Pt called and is notified of providers results and instructions. Pt voices understanding. Audra Peñaloza RN [facility]03-21-2025 Miscellaneous Notes* Telephone Encounter - Audra Peñaloza RN - 11/20/2024 12:46 PM EDT Pt called and is notified of providers results and instructions. Pt voices understanding. Audra Peñaloza RN * Telephone Encounter - David Anna APRN.LINEN SORTER - 11/20/2024 12:34 PM EDT Glucose is [...] done yesterday, she can see results on Smart Mocha. Glucose was abnormal at 73, she said [...] 71 Legend: (L) Low documented in this encounterOhiohealth Doctors Hospital03-21-2025 Telephone encounter Note * Telephone Encounter [...] decrease nausea. Thank you David Anna APRN.CNP [facility]03-21-2025 Telephone encounter Note* Telephone Encounter - [...] eGFR >=60 mL/min/1.73m 71 Legend: (L) Low [facility]03-20-[address] [facility]-2025 History of Present illness Narrative* David Anna APRN.DEBORAH - 11/19/2024 12:58 PM EDT CC: Patient presents with: Recheck: 2 week follow up HPI Allie Bustos Aamir is a 54 year [...] Dr. Cynthia Ramos M.D. S BALLOON,UTERINE ABLATION [address] ALLERGIES Ultram [Tramadol Hcl], Darvocet A500 [Propoxyphene [...] Maternal Aunt 55 ovarian cancer Heart Son NE Ovarian cancer Maternal Grandmother Glaucoma No Family [...] - Instructed patient to contact office or ibfqj-lz-ajfo after-hours promptly should condition worsen or any new symptoms appear. - Counseling Center [facility] and after hours crisis line [...] plan. David Anna APRN.CNP documented in this encounterOhiohealth Doctors Hospital03-06-2025 Telephone encounter Note * Telephone Encounter - Janet Meza LPN - 11/05/2024 1:23 PM EST Patient updated via active [employer] Janet Meza LPN November 05, 2024 1:23 PM [facility]03-06-2025 Miscellaneous Notes* Telephone Encounter - Janet Meza LPN - 11/05/2024 1:23 PM EST Patient updated via active [employer] Janet Meza LPN November 05, 2024 1:23 [...] Regards, Ifeoma Davis MD documented in this encounterOhiohealth Doctors Hospital03-06-2025 Telephone encounter Note * Telephone Encounter [...] help her fatigue. Regards, Ifeoma Davis MD [facility]03-04-2025 Instructions* Patient Instructions* Ifeoma Davis MD - 11/03/2024 2:51 PM EST Try taking the percocet without trazodone to see if that helps sleep with out feeling like a hang over. documented in this encounterOhiohealth Doctors Hospital03-04-[address] [facility]03-04-20[facility] History of Present illness Narrative* Ifeoma [...] her everyday life. 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 States she has not had a bleed in her eye at a long time, but at the same time she states she wouldn't see it at this point. Slowly progressive loss of peripheral vision. Patient also reports that she has issueswith calcified joints/arthritis. She has moved back to [place], so she can use the [employer] for going places, juany [employer] fitness. She is engaged in a lot of activities, and is giving back to the community as much as she can in every way she can. She has a son in [place], and a brother near by. Her eyes [...] extremely active in the community. Takes the [employer] bus to [employer] every Saturday, as well as to her e[employer] studies throughout the week. States these activities [...] available full-time. Needs include home health aid, nursing home if applicable - says her boyfriend could [...] Had worked with an OT previously through [facility] in [place] previously who assisted with various techniques and [...] Maternal Aunt 55 ovarian cancer Heart Son NE Ovarian cancer Maternal Grandmother Glaucoma No Family [...] DIFFERENTIAL Ifeoma Davis MD documented in this encounterOhiohealth Doctors Hospital03-03-2025 Telephone encounter Note * Telephone Encounter - Laura Lepe MA - 11/02/2024 7:50 AM EST Patient given results and verbalized understanding of instructions given. Laura Lepe MA [facility]03-03-2025 Miscellaneous Notes* Telephone Encounter - Laura [...] please follow-up with PCP. documented in this encounterOhiohealth Doctors Hospital03-03-2025 Telephone encounter Note * Telephone Encounter - Britta Gunn PA - 11/02/2024 7:10 AM EST Please let patient know urine culture did not reveal clear evidence of UTI. If she is persistent with symptoms, please follow-up with PCP. [facility]03-01-2025 Instructions* Patient Instructions* Chantal Pnio APRN.CNP - 10/31/2024 1:21 PM EST Keflex [...] pain go to ER. documented in this encounterOhiohealth Doctors Hospital03-01-[address] [facility] History of Present illness Narrative* Chantal Pino APRN.CNP - 10/31/2024 1:12 PM EST Subjective The history is provided by the patient. No language arts teacher was used. HPI Allie Lynn is a [...] have confirmed and edited as necessary, the [facility] Review of Systems Constitutional: Negative for chills [...] evaluation. franko Pino APRN.DEBORAH documented in this encounterOhiohealth Doctors Hospital02-19-2025 History of Present illness Narrative* Kimberley [...] PATIENT PRESENTS WITH AN IMPLANTABLE OR ATTACHED ASSISTED LIVING NURSING DIRECTOR: No RADIOLOGY DEPARTMENT: Mammography PERIPHERAL IV DATA: Not applicable SIGNED BY: Rubin Carlton October 21, 2024 2:00 PM documented in this encounterOhiohealth Doctors Hospital02-19-[address] [facility]-14-2025 Telephone encounter Note* Telephone Encounter - Letty Morales LPN - 10/16/2024 2:27 PM EST TC to Dr. Fox office, [facility] did not receive fax. Sent again. Staff will make sure to speak withDr. Fox. Letty Morales LPN [facility]02-14-2025 Miscellaneous Notes* Telephone Encounter - Letty [...] we'll let her know. We could use [facility] lab. She can still take flexeril. Michelle Chin APRN.LINEN SORTER * Telephone Encounter - Letty Morales LPN - 09/25/2024 4:26 PM EST TC to pt who had questions about flexeril, she has been taking it every night to see if it helps with the leg spasms. Wonders if she can still take this or if she will need to stop them. Is okay withincreasing the gabapentin, uses [facility] in [place]. Aware we need to talk to Dr. Betancourt. Has upcoming appts with PCP and pain management. Is okay to do a sleep study using [facility] but is unable to travel out of town very far. Letty Morales LPN * Telephone Encounter - Michelle Chin APRN.CNP - 09/25/2024 3:52 PM EST Please CALL pt and tell her I reviewed her case with Dr Jiménez. --We looked at her [facility] sleep study report--Dr Jiménez believes she [...] do thatwould she consider going to a [facility] sleep lab? Michelle Chin APRN.LINEN SORTER documented in this encounterOhiohealth Doctors Hospital02-11-[address] 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 I also have reviewed and agree with the assessment and plan as stated above and agree with all of its relevant components. Cynthia Ramos MD October 13, 2024 11:05 AM documented in this encounterOhiohealth Doctors Hospital02-11-2025 NoteDate of Procedure 10/13/2024. Audience Coordinator Information Steel Hanger: lino. Start time: 9:55 AM. Stop time: 9:55 AM. Notes -- OCT 10/13/2024 OD atrophy, no fluid; OS atrophy, nasal fluid stable, not in [id number] Telephone encounter Note* Telephone Encounter - Jackie Freitas MA - 10/12/2024 3:27 PM EST Patient at PCP appointment. Will have patient stop at discharge to schedule PSG. Jackie Freitas MA [facility]02-10-2025 Miscellaneous Notes* Telephone Encounter - Jackie Freitas MA - 10/12/2024 3:27 PM EST Patient at PCP appointment. Will have patient stop at discharge to schedule PSG. Jackie Freitas MA * Telephone Encounter - Michelle Chin APRN.CNP - 10/08/2024 12:55 PM EST PSG ordered. Please assist pt in scheduling it at [facility]. Michelle Chin APRN.DEBORAH * Telephone Encounter [...] advise, Dara Valdez RN documented in this encounterOhiohealth Doctors Hospital02-10-[address] [facility]02-10-2025 History of Present illness Narrative* Ifeoma [...] her everyday life. 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 States she has not had a bleed in her eye at a long time, but at the same time she states she wouldn't see it at this point. Slowly progressive loss of peripheral vision. Patient also reports that she has issueswith calcified joints/arthritis. She has moved back to [place], so she can use the [employer] for going places, [employer]. She is engaged in a lot of activities, and is giving back to the community as much as she can in every way she can. She has a son in [place], and a brother near by. Her eyes [...] extremely active in the community. Takes the [employer] bus to [employer] every Saturday, [...] available full-time. Needs include home health aid, nursing home if applicable - says her boyfriend could [...] Had worked with an OT previously through [facility] in [place] previously who assisted with various techniques and [...] Maternal Aunt 55 ovarian cancer Heart Son NE Ovarian cancer Maternal Grandmother Glaucoma No Family [...] wellbutrin Ifeoma Davis MD documented in this encounterOhiohealth Doctors Hospital02-06-2025 Telephone encounter Note * Telephone Encounter - Michelle Chin APRN.CNP - 10/08/2024 12:55 PM EST PSG ordered. Please assist pt in scheduling it at [facility]. Michelle Chin APRN.DEBORAH [facility]02-05-[address] [facility]02-05-2025 History of Present illness Narrative* Calli Duvall APRN.DEBORAH - 10/07/2024 6:31 PM EST CC: Patient [...] Dr. Cynthia Ramos M.D. S BALLOON,[place]BL[place] [address] ALLERGIES Ultram [Tramadol Hcl], Darvocet A500 [Propoxyphene [...] Maternal Aunt 55 ovarian cancer Heart Son NE Ovarian cancer Maternal Grandmother Glaucoma No Family [...] options, medications, and coordinating care. Calli Duvall APRN.DEBORAH documented in this encounterOhiohealth Doctors Hospital02-05-2025 Telephone encounter Note * Telephone Encounter [...] scheduled with other provider. Starla Mckeon LPN [facility]02-05-2025 Miscellaneous Notes* Telephone Encounter - Starla [...] provider. Starla Mckeon LPN documented in this encounterOhiohealth Doctors Hospital02-05-2025 Telephone encounter Note * Telephone Encounter [...] Please review and advise, Dara Valdez RN [facility]01-28-[address] [facility]01-28-2025 History of Present illness Narrative* Ifeoma [...] her everyday life. 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 States she has not had a bleed in her eye at a long time, but at the same time she states she wouldn't see it at this point. Slowly progressive loss of peripheral vision. Patient also reports that she has issueswith calcified joints/arthritis. She has moved back to [place], so she can use the [employer] for going places, [employer]. She is engaged in a lot of activities, and is giving back to the community as much as she can in every way she can. She has a son in [place], and a brother near by. Her eyes [...] extremely active in the community. Takes the [employer] bus to [employer] every Saturday, [...] available full-time. Needs include home health aid, nursing home if applicable - says her boyfriend could [...] Had worked with an OT previously through [facility] in [place] previously who assisted with various techniques and [...] Dr. Cynthia Ramos M.D. S BALLOON,[place]BL[place] [address] ALLERGIES Ultram [Tramadol Hcl], Darvocet A500 [Propoxyphene [...] Maternal Aunt 55 ovarian cancer Heart Son NE Ovarian cancer Maternal Grandmother Glaucoma No Family [...] TABLET Ifeoma Davis MD documented in this encounterOhiohealth Doctors Hospital01-27-2025 Telephone encounter Note * Telephone Encounter - Letty Morales LPN - 09/28/2024 8:51 AM EST Office note faxed per request. Letty Morales LPN [facility]01-24-2025 Telephone encounter Note* Telephone Encounter - Michelle Chin APRN.DEBORAH - 09/25/2024 4:36 PM EST Please print my note and I'll write a msg to Dr Betancourt, we can fax him, then we'll let her know. We could use [facility] lab. She can still take flexeril. Michelle Chin APRN.CNP [facility] Work Phone: 1(662) 559-931301-24-2025 Telephone encounter Note* Telephone Encounter - Letty Morales LPN - 09/25/2024 4:26 PM EST TC to pt who had questions about flexeril, she has been taking it every night to see if it helps with the leg spasms. Wonders if she can still take this or if she will need to stop them. Is okay withincreasing the gabapentin, uses [facility] in [place]. Aware we need to talk to Dr. Betancourt. Has upcoming appts with PCP and pain management. Is okay to do a sleep study using [facility] but is unable to travel out of town very far. Letty Morales LPN [place] [address]-24-2025 Telephone encounter Note* Telephone Encounter - Michelle Chin APRN.CNP - 09/25/2024 3:52 PM EST Please CALL pt and tell her I reviewed her case with Dr Jiménez. --We looked at her [facility] sleep study report--Dr Jiménez believes she [...] do thatwould she consider going to a [facility] sleep lab? Michelle Chin APRN.CNP [facility]01-23-2025 History of Present illness Narrative* Michelle Chin APRN.DEBORAH - 09/24/2024 3:00 PM EST Images from the original note were not included. Addendum: I reviewed her case with Dr Jiménez. 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 Michelle Chin APRN.DEBORAH [facility] New Patient Evaluation [...] gabapentin at HS. Had a PSG at [facility] -- didn't meet criteria for DAYSI [...] night A Polysomnogram performed on 07/22/24 at [facility] revealed an AHI of 8.1 (3%) [...] Dr. Cynthia Ramos M.D. S BALLOON,[place] ABL[place] [address] ACTIVE PROBLEM LIST Patellar Tendinitis Pxe (Pseudoxanthoma [...] Maternal Aunt 55 ovarian cancer Heart Son NE Ovarian cancer Maternal Grandmother Glaucoma No Family [...] leg movements in her sleep. PSG at [facility] didn't show significant arousals from PLMs [...] which included preparing to see the patient, [id number] patient care, completing clinical documentation, obtaining and/or reviewing separately obtained history, performing a medically appropriate examination, counseling and educating the pa tient/family/caregiver, and communicating with other HCPs (not separately reported). documented in this encounterOhiohealth Doctors Hospital01-23-[address] [facility]01-14-[address] [facility]01-14-2025 History of Present illness Narrative* Destiney Pendleton APRN.CNP - 09/15/2024 10:04 AM EST Allie Lynn [...] L3 SAB0 IAB0 Ectopic0 Multiple0 Live Births0 Credit Assessment Analyst History LMP: Ablation Age at Menarche: Age at First : Age at Menopause: Credit Assessment Analyst History Comments: Sexual Activity: Not Currently; Male [...] Dr. Cynthia Ramos M.D. S BALLOON,[place] [address] FAMILY HISTORY Problem Relation Age of Onset Heart Father Age 61 Heart Maternal Grandfather Cancer Paternal Grandmother Breast Cancer Maternal Aunt 55 ovarian cancer Heart Son NE Ovarian cancer Maternal Grandmother Glaucoma No Family [...] Level: 3 - Low documented in this encounterOhiohealth Doctors Hospital01-07-2025 Telephone encounter Note * Telephone Encounter - Ritesh Nikkie - 09/08/2024 10:03 AM EST Allie [...] calling: self Call patient at: on cell [phone] (home) [phone] (cell) Was an appointment scheduled: No Closing statement: Results or non-symptom based questions: Thank you for calling [facility], your call will be returned within the next business day. Nikkie Awad [facility]01-07-2025 Miscellaneous Notes* Telephone Encounter - Nikkie Awad - 09/08/2024 10:03 AM EST Allie is calling Ifeoma Davis MD today with concern regarding Refill Request Patient calling and states that her mail order pharmacy called and told her that she needs refills on just about all of her medications. 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 PHARMACY: [facility]. Patient is asking for Flonase right away and be sent to [facility]. Patient has been identified by name and birthdate. Duration of symptoms: N/A Person calling: self Call patient at: on cell [phone] (home) [phone] (cell) Was an appointment scheduled: No Closing statement: Results or non-symptom based questions: Thank you for calling [facility], your call will be returned within the next day. Nikkie Awad documented in this encounterOhiohealth Doctors Hospital12-12-2024 Telephone encounter Note * Telephone Encounter - David Anna APRN.CNP - 08/13/2024 7:09 AM EST She has an upcoming appointment with Dr. Davis next week. Have her take a few blood pressures different days after sitting to rest for a good 5 minutes and can bring readings to appointment to reviewwith her. Thank you David Anna APRN.CNP [facility]12-12-2024 Miscellaneous Notes* Telephone Encounter - David Anna APRN.CNP - 08/13/2024 7:09 AM EST She has an upcoming appointment with Dr. Davis next week. Have her take a few blood pressures different days after sitting to rest for a good 5 minutes and can bring readings to appointment to reviewwith her. Thank you David Older, MENSWEAR SALESPERSON.LINEN SORTER * Telephone Encounter - Virginia Lorenz MA [...] and by whom? Thank you David Anna APRN.LINEN SORTER * Telephone Encounter - Emily Prieto LPN - 08/12/2024 11:17 AM EST Patient calling, states she was instructed to call in with 3 separate BP readings today. 9:17am BP 155/82 HR 89 10:25am BP 146/88 HR 91 11:12am BP 158/88 HR 102 documented in this encounterOhiohealth Doctors Hospital12-11-2024 Telephone encounter Note * Telephone Encounter - Virginia Lorenz MA - 08/12/2024 2:30 PM EST Spoke with patient regarding below. After reviewing, it looks like patient was called on 08/10 by Patient Outreach and patient outreach RISHI instructed patient to call in readings. See 08/10/24 patient outreach. Virginia Lorenz MA [facility]12-11-2024 Telephone encounter Note* Telephone Encounter - Tori Morales MA - 08/12/2024 2:09 PM EST Left message for return call. [facility]12-11-2024 Telephone encounter Note* Telephone Encounter - David Anna APRN.CNP - 08/12/2024 1:30 PM EST That is higher then we would like to see. I do not see anything in the chart instructing her to do so. What is going on that she was asked to do this and by whom? Thank you David Anna APRN.DEBORAH [facility]12-11-2024 Telephone encounter Note* Telephone Encounter - Emily Prieto LPN - 08/12/2024 11:17 AM EST Patient calling, states she was instructed to call in with 3 separate BP readings today. 9:17am BP 155/82 HR 89 10:25am BP 146/88 HR 91 11:12am BP 158/88 HR 102 [facility]12-09-[address] [facility]12-09-2024 History of Present illness Narrative* Akanksha Ross MA - 08/10/2024 11:21 AM EST POPULATION HEALTH NAVIGATION OUTREACH Action/FYI Patient is on [facility] RISHI CURRENT ROSTER Workbench list for [...] 10, 2024 11:21 AM documented in this encounterOhiohealth Doctors Hospital12-04-2024 Telephone encounter Note * Telephone Encounter - Virginia Lorenz MA - 08/05/2024 11:08 AM EST Spoke with sleep/neuro nurse here in [facility]. [facility] not at this location anymore. However, [employer] and [facility] can come to patients home and set up machine and instruct patient. Patient notified of the above and will contact insurance to inquire if they are in network. Pt willcall back and let us know where to send the order. Virginia Lorenz MA [facility]12-04-2024 Miscellaneous Notes* Telephone Encounter - Virginia Lorenz MA - 08/05/2024 11:08 AM EST Spoke with sleep/neuro nurse here in [facility] not at this location anymore. However, [...] her she would need to call her [employer] company and find out the DME they use and call us back. I said it looked like Dr Davis knew about the [facility] clinic to help her to use [...] a CPAP machine and work with the [facility] clinic to help her to use it. For periodic limb movement disorders we could see if the treatment of sleep apnea would help with that symptom and if it does not we can revisit it in the future. Regards, Ifeoma Davis MD * Telephone Encounter - Virginia Lorenz MA - 07/27/2024 1:05 PM EST Printed from [employer] and placed on PCP desk. Virginia Lorenz [...] she had a sleep study done at [facility] and would like the results. Pt reports she cannot access the results. Sarahi Dawkins LPN documented in this encounterOhiohealth Doctors Hospital12-04-2024 Telephone encounter Note * Telephone Encounter - Audra Peñaloza RN - 08/05/2024 10:32 AM EST Pt called in and reports she wasn't able to get in to sleep medicine until 10/07/24. Pt is wanting toget CPAP machine before then. I told her she would need to call her [employer] company and find out the DME they use and call us back. I said it looked like Dr Davis knew about the [facility] clinic to help her to use it as she is legally blind, so she would need to set that up. Pt states she is always so tired, and she doesn't want to wait until October to get it. [facility]11-27-2024 Telephone encounter Note* Telephone Encounter - Sharifa Landa - 07/29/2024 11:34 AM EST 1st attempt LVM to schedule with sleep medicine [facility]11-27-2024 Telephone encounter Note* Telephone Encounter - Virginia Lorenz MA - 07/29/2024 11:09 AM EST Allie notified and verbalized understanding. PSS, please contact patient to schedule with Sleep Medicine. Virginia Lorenz MA [facility]11-26-2024 Telephone encounter Note* Telephone Encounter - Ifeoma Davis MD - 07/28/2024 4:41 PM EST I understand her hesitancy. Because of her limitations I would like her to see sleep medicine as they might consider other methodologies like the inspire or dental appliances. Regards, Ifeoma Davis MD [facility]11-26-2024 Telephone encounter Note* Telephone Encounter - Virginia Lorenz MA - 07/28/2024 9:37 AM EST Patient notified and verbalized understanding. Patient asking if PCP feels that she would be able to do this herself with her vision. Putting the mask on, etc. Virginia Lorenz MA [facility]11-25-2024 Telephone encounter Note* Telephone Encounter - Ifeoma Davis MD - 07/27/2024 6:32 PM EST Please let patient know that she mild sleep apnea and she also likely has periodic limb movement disorder. The ideal treatment would be a CPAP machine. If she is willing to try it we will send her a CPAP machine and work with the [facility] to help her to use it. For periodic limb movement disorders we could see if the treatment of sleep apnea would help with that symptom and if it does not we can revisit it in the future. Regards, Ifeoma Davis MD [facility]11-25-2024 Telephone encounter Note* Telephone Encounter - Virginia Lorenz MA - 07/27/2024 1:05 PM EST Printed from [employer] and placed on PCP desk. Virginia Lorenz MA [facility]11-25-2024 Telephone encounter Note* Telephone Encounter - David Anna APRN.CNP - 07/27/2024 12:25 PM EST We don't have the results either. Please get results then place on PCP desk to review. Thank you David Anna APRN.CNP [facility]11-25-2024 Telephone encounter Note* Telephone Encounter - Sarahi Dawkins LPN - 07/27/2024 10:40 AM EST Pt calls to report she had a sleep study done at [facility] and would like the results. Pt reports she cannot access the results. Sarahi Dawkins LPN [facility]11-08-2024 Telephone encounter Note* Telephone Encounter - Angelica Arreola RN - 07/10/2024 9:15 AM EST [facility] Central Scheduling calling and states they have received a non-signed sleep study order for mutual patient. Requesting a signed order. Signed order faxed to [phone] as requested. Angelica Arreola RN [facility]11-08-2024 Miscellaneous Notes* Telephone Encounter - Angelica Arreola RN - 07/10/2024 9:15 AM EST [facility] Central Scheduling calling and states they have received a non-signed sleep study order for mutual patient. Requesting a signed order. Signed order faxed to [phone] as requested. Angelica Arreola RN documented in this encounterOhiohealth Doctors Hospital11-07-2024 Telephone encounter Note * Telephone Encounter - Janet Meza LPN - 07/09/2024 2:11 PM EST Called and spoke to patient would prefer [facility] d/t legally blind. Faxed order and facesheet to [facility] sleep study Janet Meza LPN July 09, 2024 2:18 PM [facility]11-07-2024 Miscellaneous Notes* Telephone Encounter - Janet Meza LPN - 07/09/2024 2:11 PM EST Called and spoke to patient would prefer [facility] d/t legally blind. Faxed order and facesheet to [facility] sleep study Janet Meza LPN July [...] Myra Isidro - 07/07/2024 9:51 AM EST [facility] is calling Ifeoma Davis MD today to [...] calling: self Call patient at: at home [phone] (home) [phone] (cell) Was an appointment scheduled: No Closing statement: Results or non-symptom based questions: Thank you for calling [facility], your call will be returned within the next business day. Myra Mathur documented in this encounterOhiohealth Doctors Hospital11-07-2024 Telephone encounter Note * Telephone Encounter - Ifeoma Davis MD - 07/09/2024 1:27 PM EST Staff, Please co ordinate with her to get her sleep study done in the sleep lab. [facility] may be easier forher. Regards, Ifeoma Davis MD [facility]11-07-2024 Telephone encounter Note* Telephone Encounter - Judith Quach LPN - 07/09/2024 7:30 AM EST Patient given results and verbalized understanding of instructions given. Judith Quach LPN [facility]11-07-2024 Miscellaneous Notes* Telephone Encounter - Judith Quach LPN - 07/09/2024 7:30 AM EST Patient given results and verbalized understanding of instructions given. Judith Quach LPN * Telephone Encounter - Adriana Vidal APRN.LINEN SORTER - 07/09/2024 7:16 AM EST Please notify that covid/flu/rsv testing negative. Continue with plan of care as discussed during visit. documented in this encounterOhiohealth Doctors Hospital11-07-2024 Telephone encounter Note * Telephone Encounter - Adriana Vidal APRN.CNP - 07/09/2024 7:16 AM EST Please notify that covid/flu/rsv testing negative. Continue with plan of care as discussed during visit. [facility] Work Phone: 1(641) 666-847611-06-2024 History of Present illness Narrative* Alise Dejesus [...] Dr. Cynthia Paparizos, M.D. S [place] [address] ALLERGIES Ultram [Tramadol Hcl], Darvocet A500 [Propoxyphene [...] Maternal Aunt 55 ovarian cancer Heart Son NE Ovarian cancer Maternal Grandmother Glaucoma No Family [...] Patient agreeable to treatment plan. Alise Dejesus APRN.LINEN SORTER documented in this encounterOhiohealth Doctors Hospital11-06-2024 Telephone encounter Note * Telephone Encounter - Angelica Arreola RN - 07/08/2024 11:07 AM EST Patient returned call. Patient states yes, she is willing to do an in house test. States she is willing to do whatever Dr. Davis thinks is best. Please call patient with response or any new test orders. Angelica Arreola RN [facility]11-06-2024 Telephone encounter Note* Telephone Encounter - Clint Brennan RN - 07/08/2024 9:52 AM EST Phoned pt. No answer. No voicemail. [facility]11-05-2024 Telephone encounter Note* Telephone Encounter - Ifeoma Davis MD - 07/07/2024 5:13 PM EST Would she be willing for an inhouse test? Due to her blindness? Regards, Ifeoma Davis MD [facility]11-05-2024 Telephone encounter Note* Telephone Encounter - [...] calling: self Call patient at: at home [phone] (home) [phone] (cell) Was an appointment scheduled: No Closing statement: Results or non-symptom based questions: Thank you for calling [facility], your call will be returned within the next business day. Myra Mathur [facility]11-05-2024 Telephone encounter Note* Telephone Encounter - Myra Isidor - 07/07/2024 9:49 AM EST Prescription Refill [...] Myra Mathur July 07, 2024 9:49 AM [facility]11-05-2024 Miscellaneous Notes* Telephone Encounter - Myra [...] 07, 2024 9:49 AM documented in this encounterOhiohealth Doctors Hospital10-28-2024 Telephone encounter Note * Telephone Encounter [...] Dawkins LPN June 29, 2024 10:14 AM [facility]10-28-2024 Miscellaneous Notes* Telephone Encounter - Sarahi [...] 29, 2024 10:14 AM documented in this encounterOhiohealth Doctors Hospital10-14-2024 History of Present illness Narrative* Chana Bridges MA - 06/15/2024 3:47 PM EDT POPULATION HEALTH NAVIGATION OUTREACH Action/I Med Adherence Atorvastatin: Last fill 03/04/24; 90 days - 0 refills Needs new Rx Unable to reach via phone (did not ring); Picplum message sent Reason for Outreach Med Adherence Patient Contacted: Unable or unnecessary to reach patient: Unable to leave message PlayerProt message sent Navigation Signature: Chana Bridges MA June 15, 2024 3:48 PM documented in this encounterOhiohealth Doctors Hospital10-11-2024 History of Present illness Narrative* Akanksha Ross MA - 06/12/2024 9:43 AM EDT POPULATION HEALTH NAVIGATION OUTREACH Action/FYI Patient is on [facility] CURRENT ROSTER Workbench list for below [...] Breast Cancer Screening 06/18/2024 in [facility]MO [facility] with SCREEN MAMMO [facility] - Encounter for screening mammogram for malignant neoplasm of breast [Z12.31] 08/18/2024 in [facility] with CYNTHIA RAMOS 6 months VaTa and mac [facility] - 6 mo follow up; routine, Please address due care gap and HCC gap closure HCC related Navigation Signature: Akanksha Ross MA June 12, 2024 9:43 AM documented in this encounterOhiohealth Doctors Hospital09-27-2024 History of Present illness Narrative* Aldair Population Health NavigatorEileen - 05/29/2024 2:06 PM EDT POPULATION HEALTH NAVIGATION OUTREACH Action/ Medication adherence review for med below ATORVASTATIN [...] 29, 2024 2:07 PM documented in this encounterOhiohealth Doctors Hospital09-12-2024 Telephone encounter Note * Telephone Encounter [...] and have staff phone her to schedule. [phone] [facility]09-12-2024 Miscellaneous Notes* Telephone Encounter - Clint [...] and have staff phone her to schedule. [phone] documented in this encounterOhiohealth Doctors Hospital09-09-2024 Telephone encounter Note * Telephone Encounter - Khalida Agarwal - 05/11/2024 1:05 PM EDT Letter placed in mail to be mailed out to patient. Khalida Agarwal May 11, 2024 1:05 PM [facility]09-09-2024 Miscellaneous Notes* Telephone Encounter - Khalida [...] 06, 2024 3:18 PM documented in this encounterOhiohealth Doctors Hospital09-05-2024 Telephone encounter Note * Telephone Encounter - Cynthia Ramos MD - 05/07/2024 4:30 PM EDT Condition is permanent. Letter updated and forwarded to Sana. Cynthia Ramos MD 05/07/2024 4:30 PM [facility]09-04-2024 Telephone encounter Note* Telephone Encounter - Barbie Alicea - 05/06/2024 3:16 PM EDT Patient states Certificate of Blindness letter dated 04/13 requires a duration. Patient would like letter mailed once completed. Barbie Alicea May 06, 2024 3:18 PM [facility]09-03-2024 Telephone encounter Note* Telephone Encounter - Cynthia Ramos MD - 05/05/2024 8:58 AM EDT Letter created. Please mail/fax. Cynthia Ramos MD 05/05/2024 8:58 AM [facility]09-03-2024 Miscellaneous Notes* Telephone Encounter - Cynthia [...] fax to [facility] at [phone]. Please advise Barbie Alicea May 01, 2024 11:58 AM documented in this encounterOhiohealth Doctors Hospital08-30-2024 Telephone encounter Note * Telephone Encounter - Barbie Alicea - 05/01/2024 11:56 AM EDT Patient would like a letter stating dx, and what visual acuity is. Letter is needed for patient to get extra assistance with decreased vision. Once completed fax to [facility] at [phone]. Please advise Barbie Alicea May 01, 2024 11:58 AM [facility]08-26-2024 Telephone encounter Note* Telephone Encounter - [...] needed. Modesta Gallardo RN 2024 5:26 PM [facility]08-26-2024 Miscellaneous Notes* Telephone Encounter - Modesta [...] RN 2024 5:26 PM documented in this encounterOhiohealth Doctors Hospital08-13-2024 Telephone encounter Note * Telephone Encounter - Emy Hanks - 04/14/2024 1:41 PM EDT Certificate scanned and mailed to patient. [facility]08-13-2024 Miscellaneous Notes* Telephone Encounter - Emy [...] 13, 2024 1:44 PM documented in this encounterOhiohealth Doctors Hospital08-13-2024 Telephone encounter Note * Telephone Encounter - Cynthia Ramos MD - 04/14/2024 12:11 PM EDT Done. Cynthia Ramos MD 04/14/2024 12:11 PM [facility]08-12-2024 Telephone encounter Note* Telephone Encounter - Khalida Agarwal - 04/13/2024 1:42 PM EDT Patient states she needs a new certificate of blindness for a handicap placard. Khalida Agarawl April 13, 2024 1:44 PM [facility]08-10-2024 History of Present illness Narrative* Britta Gunn PA - 04/11/2024 12:02 PM EDT This note was created using NoteWriter. Subjective Allie Lynn is a 53 year [...] Ramos M.D. No date: S BALLOON,UTERINE ABLATION [address] ALLERGIES Ultram [Tramadol Hcl], Darvocet A500 [Propoxyphene [...] Maternal Aunt 55 ovarian cancer Heart Son NE Ovarian cancer Maternal Grandmother Glaucoma No Family [...] ER evaluation. KENA Medrano documented in this encounterOhiohealth Doctors Hospital08-01-2024 Telephone encounter Note * Telephone Encounter - Lina Murillo LPN - 04/02/2024 8:17 AM EDT Patient notified of below results. Lina Murillo LPN [facility]08-01-2024 Miscellaneous Notes* Telephone Encounter - Lina Murillo LPN - 04/02/2024 8:17 AM EDT Patient notified of below results. Lina Murillo LPN * Telephone Encounter - Lina Murillo LPN - 04/02/2024 8:15 AM EDT ----- Message from Ifeoma Davis MD sent at 04/01/2024 7:07 PM EDT ----- You are negative for hep C and HIV documented in this encounterOhiohealth Doctors Hospital08-01-2024 Telephone encounter Note * Telephone Encounter - Lina Murillo LPN - 04/02/2024 8:15 AM EDT ----- Message from Ifeoma Davis MD sent at 04/01/2024 7:07 PM EDT ----- You are negative for hep C and HIV [facility]07-30-2024 History of Present illness Narrative* Ifeoam Davis MD - 03/31/2024 1:00 PM EDT [...] her everyday life. 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 States she has not had a bleed in her eye at a long time, but at the same time she states she wouldn't see it at this point. Slowly progressive loss of peripheral vision. Patient also reports that she has issueswith calcified joints/arthritis. She has moved back to [place], so she can use the [employer] for going places, [employer]. She is engaged in a lot of activities, and is giving back to the community as much as she can in every way she can. She has a son in [place], and a brother near by. Her eyes [...] extremely active in the community. Takes the [employer] bus to [employer] every Saturday, [...] available full-time. Needs include home health aid, nursing home if applicable - says her boyfriend could [...] Had worked with an OT previously through [facility] in [place] previously who assisted with various techniques and [...] Dr. Cynthia Ramos M.D. 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 I also have reviewed and agree with the assessment and plan as stated above and agree with all of its relevant components. Cynthia Ramos MD February 18, 2024 1:35 PM documented in this encounterOhiohealth Doctors Hospital06-18-2024 NoteDate of Procedure 02/18/2024. Audience Coordinator Information Steel Hanger: tri. Start time: 12:53 PM. Stop time: 1:04 PM. Notes -- OCT macula 02/18/2024 OD atrophy; OS scar/atrophy, full thickness holeZEISS 01-01-2024 Telephone encounter Note* Telephone Encounter - Calli Duvall APRN.CNP - 01/01/2024 1:16 PM EDT Prempro is prescribed by gynecology Calli Duvall APRN.LINEN SORTER [facility]05-01-2024 Miscellaneous Notes* Telephone Encounter - Calli Duvall APRN.CNP - 01/01/2024 1:16 PM EDT Prempro is prescribed by gynecology Calli Duvall APRN.LINEN SORTER * Telephone Encounter - Allie Mcknight LPN [...] you. Allie Mcknight LPN. documented in this encounterOhiohealth Doctors Hospital05-01-2024 Telephone encounter Note * Telephone Encounter [...] Please advise. Thank you. Allie Mcknight LPN. [facility]04-26-2024 Telephone encounter Note* Telephone Encounter - Tori Morales MA - 12/27/2023 9:04 AM EDT Patient notified, [facility]04-26-2024 Miscellaneous Notes* Telephone Encounter - Tori [...] the Gabapentin rx. She is going to [facility] via the bus and was hoping to molded goods spot picker rx while she was out. Please advise * Telephone Encounter - Allie Mcknight LPN - 12/25/2023 2:00 PM EDT Patient calling she had MRI of her right shoulder done at [facility]. She does not see Dr Brush until December 30 for possible injection or what treatment he plans to do. Patient was asking for a Gabapentin rx. She had taken it in the past. Patient said she did not have a tear, but not sure how to explain the results. Patient is going to ask [facility] to fax report, She is legally blind so she can not drive, [facility], can get someone to molded goods spot picker rx for her. Please advise documented in this encounterOhiohealth Doctors Hospital04-26-2024 Telephone encounter Note * Telephone Encounter - David Anna APRN.CNP - 12/27/2023 7:29 AM EDT Gabapentin ordered as requested. Thank you David Anna APRN.CNP [facility]04-25-2024 Telephone encounter Note* Telephone Encounter - Allie Mcknight LPN - 12/26/2023 2:02 PM EDT Patient calling to check status of request for the Gabapentin rx. She is going to [place] via the bus and was hoping to molded goods spot picker rx while she was out. Please advise [facility]04-24-2024 Telephone encounter Note* Telephone Encounter - Allie Mcknight LPN - 12/25/2023 2:00 PM EDT Patient calling she had MRI of her right shoulder done at [facility]. She does not see Dr Brush until December 30 for possible injection or what treatment he plans to do. Patient was asking for a Gabapentin rx. She had taken it in the past. Patient said she did not have a tear, but not sure how to explain the results. 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 [facility], can get someone to molded goods spot picker rx for her. Please advise [facility]04-23-20[facility] History of Present illness Narrative* Destiney [...] L3 SAB0 IAB0 Ectopic0 Multiple0 Live Births0 Credit Assessment Analyst History LMP: Ablation Age at Menarche: Age at First : Age at Menopause: Credit Assessment Analyst History Comments: Sexual Activity: Not Currently; Male [...] Dr. Cynthia Ramos M.D. S BALLOON,UTERINE ABLATION [address] FAMILY HISTORY Problem Relation Age of Onset Heart Father Age 61 Heart Maternal Grandfather Cancer Paternal Grandmother Breast Cancer Maternal Aunt 55 ovarian cancer Heart Son NE Ovarian cancer Maternal Grandmother Glaucoma No Family [...] external genitalia normal, normal Bartholin's glands, urethra, [place]'s glands, no vulvar lesions, no cervical lesions, [...] needed Destiney Pendleton APRN.DEBORAH documented in this encounterOhiohealth Doctors Hospital03-18-2024 History of Present illness Narrative* Adriana [...] Dr. Cynthia Ramos M.D. S BALLOON,UTERINE ABLATION [address] ALLERGIES Ultram [Tramadol Hcl], Darvocet A500 [Propoxyphene [...] Maternal Aunt 55 ovarian cancer Heart Son NE Ovarian cancer Maternal Grandmother Glaucoma No Family [...] worsen in 5-7 days fill/take antibiotic, requesting ezequielberenice alphonso has worked recently for her. - Supportive care with plenty of fluids, rest, and analgesia prn. - Follow up in 3-5 days if symptoms persist or worsen. - AZITHROMYCIN 250 MG TABLET - PREDNISONE 10 MG TABLET Adriana Vidal APRN.LINEN SORTER documented in this encounterOhiohealth Doctors Hospital03-13-2024 Miscellaneous Notes* Telephone Encounter - Angelica [...] you. Angelica Arreola RN. documented in this encounterOhiohealth Doctors Hospital02-23-2024 History of Present illness Narrative* Alessandra Lora MA - 10/25/2023 9:41 AM EST POPULATION HEALTH NAVIGATION OUTREACH Action/FYI P/C to patient to schedule Medicare Wellness Exam, no answer. Left message for patient to return call. My chart message sent. Patient Identified by Name and : NO Outreach Outcome/Action Unable to reach patient: Left message PlayerProt message sent Did you use a PCP flex slot to schedule this appointment? N/A Reason for Outreach Care Gap or Scheduling/Wellness visits Payer: Payor: [facility] [employer] Team AND [employer] [facility] / Plan: [employer] MEDICARE ADVANTAGE HMO / [...] 25, 2023 9:44 AM documented in this encounterOhiohealth Doctors Hospital02-09-2024 Miscellaneous Notes* Letter - Coordinator, Mammography - 10/11/2023 1:18 PM EST October 14, 2023 PID: [id number] Allie Lynn [address] [place] [address] Dear Ms. Lynn, We are pleased to [...] report will be kept on file at [facility] as part of your permanent medical record and are available for your continuing care. Thank you for allowing us to help in meeting your health care needs. Sincerely, Dr. Muñiz Interpreting Radiologist [facility] (Normal over 40) documented in this encounterOhiohealth Doctors Hospital02-08-2024 History of Present illness Narrative* Carmen [...] PATIENT PRESENTS WITH AN IMPLANTABLE OR ATTACHED ASSISTED LIVING NURSING DIRECTOR: No RADIOLOGY DEPARTMENT: Mammography PERIPHERAL IV DATA: Not applicable SIGNED BY: Rubin Alicea October 10, 2023 1:08 PM documented in this encounterOhiohealth Doctors Hospital02-06-2024 Miscellaneous Notes* Telephone Encounter - Dara Valdez RN - 10/08/2023 10:43 AM EST Cande SOTOsupervisor roving department at [facility] calls to report that completed health risk assessment care plan update was done and can be reviewed in availability portal. Cande states that provider can attend care team meeting by calling Cande. 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 I have seen and examined this patient. I have discussed the case and the management of this patient's care with the Resident/Fellow/Cooking Instructor, if applicable. I also have reviewed and agree with the assessment and plan as stated above and agree with all of its relevant components. Cynthia Ramos MD August 16, 2023 7:06 PM documented in this encounterOhiohealth Doctors Hospital11-21-2023 Miscellaneous Notes* Telephone Encounter - Celeste [...] notify patient. Amy Adams documented in this encounterOhiohealth Doctors Hospital09-28-2023 Nurse Note* Mel Garcia RN - 05/30/2023 2:[address] Connelly at bedside to discuss procedure/findings with patient and her friend. [facility]09-28-[facility] Nurse Note* Mel Garcia RN - 05/30/2023 2:[address] Connelly at bedside to discuss procedure/findings with patient and her friend. documented in this encounterOhiohealth Doctors Hospital09-28-2023 Anesthesiology Preoperative evaluation and management note* [...] Moderate Additional Comments: None Andry Connelly MD [facility] Work Phone: 1(725) 109-528309-28-2023 Miscellaneous Notes* Anesthesia PreOp - Andry Connelly [...] None Andry Connelly MD documented in this encounterOhiohealth Doctors Hospital09-19-2023 History of Present illness Narrative* Virginia [...] her everyday life. 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 States she has not had a bleed in her eye at a long time, but at the same time she states she wouldn't see it at this point. Slowly progressive loss of peripheral vision. Patient also reports that she has issueswith calcified joints/arthritis. Just sold her home here in [place] and moved to [place] with her boyfriend, and her boyfriend doesn't feel like she's entirely safe in her day to day activities. Patient called [facility] and they advised that she have a home health order placed and faxed over to them-reports she's not sure all that she can be helped with. She is extremely active in the community. Takes the [employer] bus to [employer] every Saturday, [...] available full-time. Needs include home health aid, nursing home if applicable - says her boyfriend could [...] Had worked with an OT previously through [facility] in [place] previously who assisted with various techniques and [...] Dr. Cynthia Ramos M.D. 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 Trigger finger, unspecified finger, unspecified laterality - ICD9: 727.03, ICD10: M65.30 Refills provided on meloxicam per pt request - [facility] 4. Mixed hyperlipidemia - ICD9: 272.2, [...] plan. [place] Avalos PA-C documented in this encounterOhiohealth Doctors Hospital09-06-2023 Miscellaneous Notes* Telephone Encounter - Sita Mauricio LPN - 05/08/2023 9:25 AM EDT PATIENT NOTIFIED OF SAME. * Telephone Encounter - Ariadne Zaidi APRN.DEBORAH - 05/07/2023 4:28 PM EDT Printed, will sign, please call patient to molded goods spot picker. Thanks! * Telephone Encounter - Lina uMrillo LPN - 05/07/2023 1:16 PM EDT Patient is needing to renew her handicapped placard, it expires this month. Please call when approved and ready for pickup. Lina Murillo LPN documented in this encounterOhiohealth Doctors Hospital09-01-2023 Miscellaneous Notes* Telephone Encounter - Fern [...] notify patient. Marnie Adams documented in this encounterOhiohealth Doctors Hospital08-29-2023 Instructions* Patient Instructions* Cande Pozo PA-C [...] If you do not have a responsible motorcoach driver (family member or friend) withyou to take you home, your exam cannot be done with sedation and will be cancelled. Please bring a list of all of your current medications, including any Hqav-kdj-Wbftsym medications with you. Medications If you take [...] your exam. 2 08/2019 documented in this encounterOhiohealth Doctors Hospital08-29-2023 History of Present illness Narrative* Cande [...] Abs Lymph 1.00 - 4.00 k/uL 1.42 [place]% % 9.8 Abs [place] <0.87 k/uL 0.58 Eosin% % 3.1 Abs [...] Dr. Cynthia Ramos M.D. S BALLOON,UTERINE ABLATION [address] Allergies: ALLERGIES Allergen Reactions Ultram [Tramadol Hc* [...] Maternal Aunt 55 ovarian cancer Heart Son NE Ovarian cancer Maternal Grandmother Glaucoma No Family [...] which included preparing to see the patient, [id number] patient care, completing clinical documentation, obtaining and/or reviewing separately obtained history, performing a medically appropriate examination, counseling and educating the pat ient/family/caregiver, ordering medications, tests, or procedures, communicating with other HCPs (not separately reported), independently interpreting results (not separately reported), communicatingresults to the patient/family/caregiver, and care coordination (not separately reported). Cande Pozo PA-C April 30, 2023 1:23 PM documented in this encounterOhiohealth Doctors Hospital08-24-2023 History of Present illness Narrative* Massimo Roberts MD - 04/25/2023 2:12 PM EDT Massimo Roberts MD Department of Orthopaedics Orthopaedics [address] [place] [address] Dept: [phone] Dept April 25, 2023 CHIEF COMPLAINT: Established [...] Dr. Cynthia Ramos M.D. S BALLOON,[place]ERINE ABLATION [address] Medications: Current Outpatient Medications Medication Sig keTORolac [...] anxiety) Massimo Roberts MD documented in this encounterOhiohealth Doctors Hospital08-14-2023 Miscellaneous Notes* Telephone Encounter - Allie [...] cost. Starla Mckeon LPN documented in this encounterOhiohealth Doctors Hospital06-20-2023 History of Present illness Narrative* Cynthia [...] management of this patient's care with the Resident/Fellow/Cooking Instructor, if applicable. I also have reviewed and agree with the assessment and plan as stated above and agree with all of its relevant components. Cynthia Ramos MD February 19, 2023 3:11 PM documented in this encounterOhiohealth Doctors Hospital05-30-2023 Miscellaneous Notes* Telephone Encounter - Celeste [...] you. Celeste Cardona LPN documented in this encounterOhiohealth Doctors Hospital05-02-2023 Discharge summary Author Sharifa Morrissey [facility] January 01, 2023 12:18pm Note Date/Time January 01, 2023 12:18p [facility] Occupational Therapy [facility] [address] [place] [address] [address] [place] [address] / REHABILITATION SERVICES DISCHARGE SUMMARY MR#: [id number] Acct: [id number] Name: ALLIE LYNN Rep #: [id number] : 1970 52 From: Sharifa Morrissey OTR/L, [...] discharge status. % Improvement: 80 Objective/Function: right cash analyst strength 50#. left cash analyst strength 40# (US completed previous to cash analyst). right RF PIP -5/45. left MF PIP -15/50 Patient Goals: Regain Mobility, Regain Strength, Decrease Pain, Use Hand/Wrist/Arm Normally Again Goal:Daily scar massage when approriate: Yes Goal:ROM equal to unaffected hand: Yes Goal:Welder Railcar Mechanic/Pinch strength at least 75% of unaffected hand: [...] please fell free to call me at [phone]. Thank you for the referral of this patient. Sincerely, Sharifa Morrissey, OTR/L, CHT <Electronically signed by Sharifa Morrissey OTR/Yonathan, CHT> 01/01/23 [id number] CC: Dr. Ifeoma Davis MD; TAINA FAN ~ MK Signed [facility] Work Phone: 1(200) 299-686904-12-2023 Miscellaneous Notes* Telephone Encounter - Celeste Cardona [...] RX INSTRUCTIONS: Patient needs 14 days to [facility] today - she is going today to [facility] and since she cannot drive due to legally blind, please send JUVE so she can molded goods spot picker while at [facility] this morning. Please send 90 days to [facility] Rx Mail order. Please call patient once 14 days is sent to [facility]. Patient aware RX will be sent to pharmacy. No need to notify patient. Patient aware RX escripted to mail away pharmacy. No need to notify patient. Melly Prado Pss' documented in this encounterOhiohealth Doctors Hospital04-04-2023 Instructions* Patient Instructions* Cynthia Ramos MD - 12/04/2022 11:15 AM EDT Continue Prednisolone (pink/white) 1 drop LEFT eye 4 x daily Continue Ketorolac (saunders) 1 drop LEFT eye 4 x daily OK to use refresh or gel drop documented in this encounterOhiohealth Doctors Hospital04-04-2023 History of Present illness Narrative* Cynthia [...] management of this patient's care with the Resident/Fellow/Cooking Instructor, if applicable. I also have reviewed and agree with the assessment and plan as stated above and agree with all of its relevant components. Cynthia Ramos MD December 04, 2022 11:14 AM documented in this encounterOhiohealth Doctors Hospital03-23-2023 Instructions* Patient Instructions* Cynthia Ramos MD - 11/22/2022 12:23 PM EDT STOP Polymyxin trimethoprim (clear/white) Continue Prednisolone (pink/white) 1 drop LEFT eye 4 x daily Continue Ketorolac (saunders) 1 drop LEFT eye 4 x daily OK to use refresh OK to stop documented in this encounterOhiohealth Doctors Hospital03-23-2023 History of Present illness Narrative* Cynthia [...] management of this patient's care with the Resident/Fellow/Cooking Instructor, if applicable. I also have reviewed and [...] management of this patient's care with the Resident/Fellow/Cooking Instructor, if applicable. I also have reviewed and agree with the assessment and plan as stated above and agree with all of its relevant components. Cynthia Ramos MD September 25, 2022 3:18 PM documented in this encounterOhiohealth Doctors Hospital03-20-2023 Miscellaneous Notes* Telephone Encounter - Henrik [...] Saturday evening dileep seen. She lives in [place] and does not have transportation available. We discussed being seen at the ED for evaluation and potential evaluation by an torpedoman's mate from [facility]. I advised that if she is not seen in the ED on 11/18/2022 that she either follow-up with Dr. Torres in the [facility] office or contact [facility] to be seen there. She has seen doctors at that office in the past. Henrik Chen MD documented in this encounterOhiohealth Doctors Hospital03-20-2023 History of Present illness Narrative* Valentine [...] 19, 2022 3:49 PM documented in this encounterOhiohealth Doctors Hospital03-20-2023 Miscellaneous Notes* Telephone Encounter - Khalida [...] develops new flashes or floaters. As the [place] doctor discussed with her, this can sometimes occur and we can often treat it with alaser in the office. We can discuss at her next appointment. Cynthia Ramos MD 11/19/2022 3:31 PM * Telephone Encounter - Khalida Agarwal - 11/19/2022 9:46 AM EDT Received office notes from [place]. Patient was seen on 11/18 at [facility] regarding abnormal pupil and hemorrhage [...] and she was also seen at the [place] [facility]. She states that the doctor at that office removed eye patch and noticed a cosmetic issuewhere vitreous gel landed below pupil. I asked patient to have [place] fax over their notes so I can [...] 19, 2022 8:36 AM documented in this encounterOhiohealth Doctors Hospital03-20-2023 History of Present illness Narrative* Taina Fan PA-C - 11/19/2022 2:59 PM EDT Taina Fan PA-C Department of Orthopaedics Orthopaedics [address] [place] [address] Dept: [phone] Dept November 19, 2022 CHIEF COMPLAINT: Established [...] for OT was placed and faxed to [facility]. We discussed proper hand washing, no soaking [...] [Hydrocodone-Acetaminophen] This note was partially generated using [employer] voice recognition system, and there may be [...] site. Alis Eid LPN documented in this encounterOhiohealth Doctors Hospital03-17-2023 Instructions* Patient Instructions* Cynthia Ramos MD [...] Shadow in peripheral vision documented in this encounterOhiohealth Doctors Hospital03-17-2023 History of Present illness Narrative* Cynthia [...] management of this patient's care with the Resident/Fellow/Cooking Instructor, if applicable. I also have reviewed and [...] management of this patient's care with the Resident/Fellow/Cooking Instructor, if applicable. I also have reviewed and agree with the assessment and plan as stated above and agree with all of its relevant components. Cynthia Ramos MD September 25, 2022 3:18 PM documented in this encounterOhiohealth Doctors Hospital03-16-2023 History of Past illness Narrative* Problem Noted Date Resolved Date Nuclear senile cataract of left eye 11/15/2022 11/15/2022 Combined forms of age-related cataract of right eye 06/25/2022 06/25/2022 Photopsia 06/25/2022 06/25/2022 documented as of this encounter (statuses as of 11/16/2022) [facility] of Past illness Narrative* Problem Noted Date Resolved Date Nuclear senile cataract of left eye 11/15/2022 11/15/2022 Combined forms of age-related cataract of right eye 06/25/2022 06/25/2022 Photopsia 06/25/2022 06/25/2022 documented as of this encounter (statuses as of 11/19/2022) [facility] of Past illness Narrative* Problem Noted Date Resolved Date Nuclear senile cataract of left eye 11/15/2022 11/15/2022 Combined forms of age-related cataract of right eye 06/25/2022 06/25/2022 Photopsia 06/25/2022 06/25/2022 documented as of this encounter (statuses as of 11/20/2022) [facility] of Past illness Narrative* Problem Noted Date Resolved Date Nuclear senile cataract of left eye 11/15/2022 11/15/2022 Combined forms of age-related cataract of right eye 06/25/2022 06/25/2022 Photopsia 06/25/2022 06/25/2022 documented as of this encounter (statuses as of 11/20/2022) [facility] of Past illness Narrative* Problem Noted Date Resolved Date Nuclear senile cataract of left eye 11/15/2022 11/15/2022 Combined forms of age-related cataract of right eye 06/25/2022 06/25/2022 Photopsia 06/25/2022 06/25/2022 documented as of this encounter (statuses as of 11/26/2022) [facility] of Past illness Narrative* Problem Noted Date Resolved Date Nuclear senile cataract of left eye 11/15/2022 11/15/2022 Combined forms of age-related cataract of right eye 06/25/2022 06/25/2022 Photopsia 06/25/2022 06/25/2022 documented as of this encounter (statuses as of 12/02/2022) [facility] of Past illness Narrative* Problem Noted Date Resolved Date Nuclear senile cataract of left eye 11/15/2022 11/15/2022 Combined forms of age-related cataract of right eye 06/25/2022 06/25/2022 Photopsia 06/25/2022 06/25/2022 documented as of this encounter (statuses as of 12/05/2022) [facility] of Past illness Narrative* Problem Noted Date Resolved Date Nuclear senile cataract of left eye 11/15/2022 11/15/2022 Combined forms of age-related cataract of right eye 06/25/2022 06/25/2022 Photopsia 06/25/2022 06/25/2022 documented as of this encounter (statuses as of 12/13/2022) [facility] of Past illness Narrative* Problem [...] of this encounter (statuses as of 01/30/2023) [facility] of Past illness Narrative* Problem [...] of this encounter (statuses as of 02/21/2023) [address]16-2023 History of Past illness Narrative* Problem [...] of this encounter (statuses as of 04/16/2023) [facility] of Past illness Narrative* Problem [...] of this encounter (statuses as of 04/30/2023) [facility] of Past illness Narrative* Problem [...] of this encounter (statuses as of 05/03/2023) [facility] of Past illness Narrative* Problem [...] of this encounter (statuses as of 05/08/2023) [facility] of Past illness Narrative* Problem [...] of this encounter (statuses as of 05/23/2023) [facility] of Past illness Narrative* Problem [...] of this encounter (statuses as of 05/28/2023) [facility] of Past illness Narrative* Problem [...] of this encounter (statuses as of 06/25/2023) [facility] of Past illness Narrative* Problem [...] of this encounter (statuses as of 07/24/2023) [facility] of Past illness Narrative* Problem [...] of this encounter (statuses as of 09/02/2023) [facility] of Past illness Narrative* Problem [...] of this encounter (statuses as of 10/04/2023) [facility] of Past illness Narrative* Problem [...] of this encounter (statuses as of 10/08/2023) [facility] of Past illness Narrative* Problem [...] of this encounter (statuses as of 10/11/2023) [facility] of Past illness Narrative* Problem [...] of this encounter (statuses as of 10/15/2023) [facility] of Past illness Narrative* Problem [...] of this encounter (statuses as of 10/25/2023) [facility] of Past illness Narrative* Problem [...] of this encounter (statuses as of 11/13/2023) [facility] of Past illness Narrative* Problem [...] of this encounter (statuses as of 11/18/2023) [facility] of Past illness Narrative* Problem [...] of this encounter (statuses as of 05/22/2023) [facility]03-14-2023 Miscellaneous Notes* Telephone Encounter - Mauricio Bahena - 11/13/2022 3:36 PM EDT Called and informed patient to arrive at [address] [place] [address] at 10:45 am for 11/15/22 surgerywith Cynthia Ramos MD. Also reminded patient to refrain from eating or drinking for 8 hours prior to arrival for surgery, and to begin eyedrops in the left eye on 03/14/23. Patient states understanding and is agreeable. documented in this encounterOhiohealth Doctors Hospital03-06-2023 Miscellaneous Notes* Telephone Encounter - Chana Mao Ma - 11/05/2022 11:19 AM EST I called and spoke with patient. She will molded goods spot picker more hibiclens. Packet left at Ortho front edger. * Telephone Encounter - Natasha Jurado LPN - 11/05/2022 10:28 AM EST Patient called. Verified name and date of . Patient states she has surgery scheduled Saturdayand misplaced the packet of hand vacuum cleaner repair person needed for the day of surgery. Can patient molded goods spot picker anotherpacket? Natasha Jurado LPN documented in this encounterOhiohealth Doctors Hospital03-03-2023 Miscellaneous Notes* Telephone Encounter - Chana [...] phone call back Please advise patient at [phone]. Thank you Mary Cochran LPN documented in this encounterOhiohealth Doctors Hospital03-01-2023 NoteHNO ID: [id number] Author: Michelle Perez, OT/L Service: ? Author [...] Planned: 6 Planned Treatment Interventions: Therapeutic exercise (56733), Self-intermediate management (26266), Patient/Family/Caregiver Education, Functional training, Community / Work Reintegration PLAN FOR NEXT VISIT: FOLLOW UP ON SELF PERFORMANCE ASSESSMENT FOR ADLS/IADLS AND ADDRESS SAME and ADDRESS ECCENTRIC FIXATION SUBJECTIVE: Patient reported that she has a lot going on this date. She reported that she used the [employer] MAGNIFIER LIGHT and used this in her [...] procedure. She is pursuing financial assistance from [employer] IN [place] and has the letter with equipment recommendations [...] INCREASE PARTICIPATION WITH [employer]:- trialed the [employer] TV GLASSES and was able to pick out signs, traffic, people outside when trialing same. Reviewed cleaning, and care instructions for taking care of them. She is wanting to borrow these for watching tv, seeing screens at her bahai to increase active participation with same. She id understanding instructions and accurately adjusted the focal distance with the lenses after practicing with same. 7: PROCURING OPTICAL AIDS/DEVICES: as id. above, did review her paperwork and recommendations made: *contact [employer] services in [place] to verify need of needing two written estimates;*if she does require two estimates then she was provided with another agency to assist w/ selling the recommended devices (MAGNIFIERS AND MORE) and (more content not included)...[facility]03-01-2023 History of Present illness Narrative [...] Planned: 6 Planned Treatment Interventions: Therapeutic exercise (94462), Self-intermediate management (02023), Patient/Family/Caregiver Education, Functional training, Community / Work [...] procedure. She is pursuing financial assistance from [employer] IN [place] and has the letter with equipment recommendations [...] PARTICIPATION WITH [employer]:- trialed the [employer] TV GLASSES and wasable to pick out signs, traffic, people outside when trialing same. Reviewed cleaning, and care instructions for taking care of them. She is wanting to borrow these for watching tv, seeing screens ather bahai to increase active participation with same. She id understanding instructions and accurately adjusted the focal distance with the lenses after practicing with same. 7: PROCURING OPTICAL AIDS/DEVICES: as id. above, did review her paperwork and recommendations made:*contact [facility] services in [place] to verify need of needing two written [...] Planned: 6 Planned Treatment Interventions: Therapeutic exercise (24901), Self-intermediate management (00157), Patient/Family/Caregiver Education, Functional training, Community / Work [...] 77 Michelle Perez OT/L documented in this encounterOhiohealth Doctors Hospital02-24-2023 Miscellaneous Notes* Telephone Encounter - Viviana Cochran - 10/26/2022 9:40 AM EST Patient left message in surgery scheduling to reschedule 10/29/22 IOL measurements (ascan). Called patient and offered 11/08/22 at 8:30 am. Patient declines due to has hand surgery the day before. States she will arrange transportation with a family member (called [facility] too late to set up through them). Will keep 10/29/22 as scheduled. documented in this encounterOhiohealth Doctors Hospital02-21-2023 History of Present illness Narrative* Mel [...] 23, 2022 4:42 PM documented in this encounterOhiohealth Doctors Hospital02-15-2023 NoteHNO ID: [id number] Author: Michelle Perez, OT/L Service: ? Author [...] with same. She was provided needle manager of investigations, and pre threaded needles with colored thread [...] 6: Threading a needle/sewing: issued needle manager of investigations and self threaded needles and with use of the floor stand JIM LITE she will practice with same but did not formally have her practice on this date. Provided instruction and education and demonstration and she was familiar w/ the filament needle manager of investigations presented. 7: Eating neatly: on the self [...] needed in t (more content not included)...[facility] 10-17-2022 History of Present illness [...] with same. She was provided needle manager of investigations, and pre threaded needles with colored thread [...] her during previous treatment session. Did trial the[employer] EMILIANO NOIR 10 fit over filters and [...] 6: Threading a needle/sewing: issued needle manager of investigations and self threaded needles and with use of the floor stand JIM LITE she will practice with same but did not formally have her practice on this date. Provided instruction and education and demonstration and she was familiar w/ the filament needle manager of investigations presented. 7: Eating neatly: on the self [...] CLINIC AND TO PRACTICE WITH SAME (HER BROOM MAKER WILL CARRY THIS IN FOR HER D/T INCREASED WEIGHT IN ORDER TO ENSURE HER SAFETY) AND WILL CONT. TO BORROW THE LIGHT EMILIANO FIT OVER FILTERS. WAS ISSUED ADDITIONAL BOLD LINE PAPER TABLETS, SOCK CLIPS, NEEDLE METAL FITTER, SELF THREADED NEEDLES AND A LED FLASHLIGHT. [...] 70 Michelle Perez OT/L documented in this encounterOhiohealth Doctors Hospital02-14-2023 History of Present illness Narrative* Ifeoma [...] EXTRACAP,INSERT LENS Right 06/25/2022 S BALLOON,UTERINE ABLATION [address] FAMILY HISTORY Problem Relation Age of Onset Heart Father Age 61 Heart Maternal Grandfather Cancer Paternal Grandmother Breast Cancer Maternal Aunt 55 ovarian cancer Heart Son NE Ovarian cancer Maternal Grandmother Glaucoma No Family [...] remaining Ifeoma Davis MD documented in this encounterOhiohealth Doctors Hospital02-07-2023 History of Present illness Narrative* Brunilda [...] 09, 2022 12:50 PM documented in this encounterOhiohealth Doctors Hospital02-02-2023 Miscellaneous Notes* Telephone Encounter - Clint [...] can not drive and can have friend molded goods spot picker rx. Patient is asking for Zohck rx to be sent to [facility] please. Please advise documented in this encounterOhiohealth Doctors Hospital01-31-2023 Miscellaneous Notes* Telephone Encounter - Chana Mao Ma - 10/02/2022 8:44 AM EST Surgery has been scheduled as requested. * Telephone Encounter - Chana Mao Ma - 10/01/2022 4:00 PM EST Surgical request completed for right ring and left middle trigger finger releases at [facility] on 11/02/2022. Post op appointments have been scheduled and mailed to patient. documented in this encounterOhiohealth Doctors Hospital01-30-2023 History of Present illness Narrative* Massimo Roberts MD - 10/01/2022 2:19 PM EST Massimo Roberts MD Department of Orthopaedics Orthopaedics [address] [facility] [address] Dept: [phone] Dept October 01, 2022 CHIEF COMPLAINT: Established [...] EXTRACAP,INSERT LENS Right 06/25/2022 S BALLOON,UTERINE ABLATION [address] Medications: Current Outpatient Medications Medication Sig mometasone [...] anxiety) Massimo Roberts MD documented in this encounterOhiohealth Doctors Hospital01-30-2023 History of Present illness Narrative* Laura Pimentel [...] 01, 2022 2:16 PM documented in this encounterOhiohealth Doctors Hospital01-27-2023 Miscellaneous Notes* Letter - Mammography Coordinator - 09/28/2022 3:14 PM EST October 01, 2022 PID: [id number] Allie Lynn [address] [address] Dear Ms. Lynn, Your recent breast imaging exam on 09/27/2022 showed a possible finding that requires additional imaging studies for a complete evaluation. Most such findings are probably benign (not cancer). If you have a healthcare provider who ordered/prescribed your screening mammogram: Please call [phone] or [phone]: [phone] to schedule an appointment for your additional [...] and reports are [facility] as part of your permanent medical record, and are available for your continuing care. Thank you for allowing us to help in meeting your health care needs. Sincerely, Dr. Osei Interpreting Radiologist [facility] (Additional imaging) documented in this encounterOhiohealth Doctors Hospital01-26-2023 History of Present illness Narrative* Kimberley [...] applicable SIGNED BY: Kimberley De Los Santos [place] September 27, 2022 1:05 PM documented in this encounterOhiohealth Doctors Hospital01-24-2023 History of Present illness Narrative* Cynthia [...] patient was offered a surgery/procedure at a [facility] facility. The surgeon/proceduralist and patient have [...] management of this patient's care with the Resident/Fellow/Cooking Instructor, if applicable. I also have reviewed and [...] management of this patient's care with the Resident/Fellow/Cooking Instructor, if applicable. I also have reviewed and agree with the assessment and plan as stated above and agree with all of its relevant components. Cynthia Ramos MD September 25, 2022 3:18 PM documented in this encounterOhiohealth Doctors Hospital01-18-2023 NoteHNO ID: [id number] Author: Michelle Perez OT/L Service: ? Author [...] Planned: 6 Planned Treatment Interventions: Therapeutic exercise (15710);Self-intermediate management (84758);Patient/Family/Caregiver Education;Functional training;Community / Work Reintegration PLAN FOR [...] Treatment: (was seen by low vision referring content development manager, Dr. Mason recently. 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 Mason recently. 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 Patient is waiting for LEFT eye cataract extraction and currently is not able to wear corrective glasses. Patient id. Losing her prescription sunglasses and only has wrap around dark saunders filters. Pt. Is applying for financial resources for recommended optical aids/devices from her local [employer] in [facility] but needs prices from two providers and was provided contact information from[employer] to assist with devices that referring low vision content development manager (Dr. Mason) provided to her at time of her assessment. PSYCHOSOCIAL ASSESSMENT: Alert & Oriented X 4. Affect: appropriate, reasonably positive mood , and hyper verbal/tangential. Memory: no gross deficits observed. Concentration: WFL. Language: verbal and reading w/ appropriate use of adaptive equipment. Fund of Knowledge: High Patient Reports her: Motivation is High. Activity level is High. [place] for ADL is: Average. Life satisfaction is: [...] needed. 6: COMMUNITY SUPPORT/RESOURCES: provided her with [facility] resources for support ([employer], AND [employer]) and she is already set up with [...] Total Treatment Time Minutes (timed/untimed): 75 Michelle Clarence, OT/L documented in this encounterOhiohealth Doctors Hospital01-18-2023 Miscellaneous Notes* Telephone Encounter - Barbie Alicea Pss - 09/19/2022 9:50 AM EST Per Ilsa at Occupational Therapy she does not help with white tsai/mobile training. She states shesent you a message. She states she will call patient and explain this to her and see if she still wants to come in for her appointment today. documented in this encounterOhiohealth Doctors Hospital12-15-2022 History of Present illness Narrative* Wolf Mason, GIANNI - 08/16/2022 1:45 PM EST Blindness right [...] as needed LV exam documented in this encounterOhiohealth Doctors Hospital12-13-2022 Miscellaneous Notes* Telephone Encounter - Starla [...] advise. Lea Roberts Pss documented in this encounterOhiohealth Doctors Hospital11-22-2022 History of Present illness Narrative* Jonathon [...] components. Jonathon Eugene MD documented in this encounterOhiohealth Doctors Hospital11-22-2022 Miscellaneous Notes* Telephone Encounter - Aleksandra Min LPN - 07/24/2022 11:21 AM EST Patient notified. Verbalized understanding. * Telephone Encounter - Ifeoma Davis MD - 07/23/2022 6:53 PM EST I sent this to Ifeoma Hinson MD * Telephone Encounter - Melly Prado Pss - 07/23/2022 12:10 PM EST Allie Lynn is calling Ifeoma Davis MD today she stated she saw [facility] on 06/25/22, the provider told her [...] calling: self Call patient at: at home [phone] (home) [phone] (cell) Was an appointment scheduled: No Closing statement: Results or non-symptom based questions: Thank you for calling [facility], your call will be returned within the next business day. Melly Prado Pss documented in this encounterOhiohealth Doctors Hospital11-21-2022 Miscellaneous Notes* Telephone Encounter - Celeste [...] Telephone Encounter - Melly Adams - 07/23/2022 12:02 PM EST Patient has [...] patient. Melly Prado Pss documented in this encounterOhiohealth Doctors Hospital11-21-2022 Miscellaneous Notes* Telephone Encounter - Vanessa [...] patient. Melly Prado Pss documented in this encounterOhiohealth Doctors Hospital11-03-2022 Miscellaneous Notes* Telephone Encounter - Dara Valdez RN - 07/05/2022 8:41 AM EDT Called patient and notified that provider sent medication to [facility]. Patient voiced understanding. Dara Valdez RN * Telephone Encounter - Clint Brennan RN - 07/04/2022 4:11 PM EDT Patient asking pcp to send Rx to [facility]. See message below. * Telephone Encounter - [...] advise, Dara Valdez RN documented in this encounterOhiohealth Doctors Hospital11-01-2022 Instructions* Patient Instructions* Jonathon Eugene MD - 07/03/2022 1:14 PM EDT -prednisolone (white or pink cap) four times a day x 1 week, then three times a day for 1 week, then twice a day for 1 week, then once a day for 1 week, then stop -vigamox (mora cap) four times a day for 1 week, then stop documented in this encounterOhiohealth Doctors Hospital11-01-2022 History of Present illness Narrative* Jonathon [...] components. Jonathon Eugene MD documented in this encounterOhiohealth Doctors Hospital10-28-2022 History of Present illness Narrative* Valentine [...] 29, 2022 12:01 PM documented in this encounterOhiohealth Doctors Hospital10-28-2022 Miscellaneous Notes* Telephone Encounter - Tori [...] of that eye. She was seen in [facility] and he felt it was viral. Dr. Eugene is asking that she be given something to treat the cough and patient is requesting an antibiotic such as Z-pk or levaquin. Please review and advise. documented in this encounterOhiohealth Doctors Hospital10-28-2022 Miscellaneous Notes* Telephone Encounter - Janet Rivero RN - 06/29/2022 8:59 AM EDT Patient has been scheduled for today 06/29/2022 at the [facility] office with Dr. Torres. Janet Rivero RN June 29, 2022 8:59 AM * Telephone Encounter - Janet Rivero RN - 06/29/2022 7:35 AM EDT Received message via Secure Chat from Dr. Eugene that due to patient living in [place] that she could see Dr. Torres for a dilated exam as well. If patient wants seen by Dr. Eugene he is at [facility]. Janet Rivero RN June 29, 2022 7:36 AM * Telephone Encounter - Janet Rivero RN - 06/28/2022 6:07 PM EDT Discussed patient with Dr. Eugene. He advised for patient to be seen on 06/29/[address] Ramos. Routed to [facility] staff to schedule. Janet Rivero RN June [...] can do to help. documented in this encounterOhiohealth Doctors Hospital10-25-2022 Instructions* Patient Instructions* Jonathon Eugene MD - 06/26/2022 1:40 PM EDT -prednisolone every two hours right eye -vigamox four times a day right eye -geldrops left eye -ointment at bedtime left eye documented in this encounterOhiohealth Doctors Hospital10-25-2022 History of Present illness Narrative* Jonathon [...] components. Jonathon Eugene MD documented in this encounterOhiohealth Doctors Hospital10-24-2022 History of Past illness Narrative* Problem Noted Date Resolved Date Combined forms of age-related cataract of right eye 06/25/2022 06/25/2022 Photopsia 06/25/2022 06/25/2022 documented as of this encounter (statuses as of 06/25/2022) [facility] of Past illness Narrative* Problem Noted Date Resolved Date Combined forms of age-related cataract of right eye 06/25/2022 06/25/2022 Photopsia 06/25/2022 06/25/2022 documented as of this encounter (statuses as of 06/26/2022) [facility] of Past illness Narrative* Problem Noted Date Resolved Date Combined forms of age-related cataract of right eye 06/25/2022 06/25/2022 Photopsia 06/25/2022 06/25/2022 documented as of this encounter (statuses as of 06/26/2022) [facility] of Past illness Narrative* Problem Noted Date Resolved Date Combined forms of age-related cataract of right eye 06/25/2022 06/25/2022 Photopsia 06/25/2022 06/25/2022 documented as of this encounter (statuses as of 06/29/2022) [facility] of Past illness Narrative* Problem Noted Date Resolved Date Combined forms of age-related cataract of right eye 06/25/2022 06/25/2022 Photopsia 06/25/2022 06/25/2022 documented as of this encounter (statuses as of 06/29/2022) [facility] of Past illness Narrative* Problem Noted Date Resolved Date Combined forms of age-related cataract of right eye 06/25/2022 06/25/2022 Photopsia 06/25/2022 06/25/2022 documented as of this encounter (statuses as of 06/29/2022) [facility] of Past illness Narrative* Problem Noted Date Resolved Date Combined forms of age-related cataract of right eye 06/25/2022 06/25/2022 Photopsia 06/25/2022 06/25/2022 documented as of this encounter (statuses as of 07/03/2022) [facility] of Past illness Narrative* Problem Noted Date Resolved Date Combined forms of age-related cataract of right eye 06/25/2022 06/25/2022 Photopsia 06/25/2022 06/25/2022 documented as of this encounter (statuses as of 07/05/2022) [facility] of Past illness Narrative* Problem Noted Date Resolved Date Combined forms of age-related cataract of right eye 06/25/2022 06/25/2022 Photopsia 06/25/2022 06/25/2022 documented as of this encounter (statuses as of 07/23/2022) [facility] of Past illness Narrative* Problem Noted Date Resolved Date Combined forms of age-related cataract of right eye 06/25/2022 06/25/2022 Photopsia 06/25/2022 06/25/2022 documented as of this encounter (statuses as of 07/24/2022) [facility] of Past illness Narrative* Problem Noted Date Resolved Date Combined forms of age-related cataract of right eye 06/25/2022 06/25/2022 Photopsia 06/25/2022 06/25/2022 documented as of this encounter (statuses as of 07/24/2022) [facility] of Past illness Narrative* Problem Noted Date Resolved Date Combined forms of age-related cataract of right eye 06/25/2022 06/25/2022 Photopsia 06/25/2022 06/25/2022 documented as of this encounter (statuses as of 07/25/2022) [facility] of [facility] Narrative* Problem Noted Date Resolved Date Combined forms of age-related cataract of right eye 06/25/2022 06/25/2022 Photopsia 06/25/2022 06/25/2022 documented as of this encounter (statuses as of 08/14/2022) [facility] Narrative* Problem Noted Date Resolved Date Combined forms of age-related cataract of right eye 06/25/2022 06/25/2022 Photopsia 06/25/2022 06/25/2022 documented as of this encounter (statuses as of 08/16/2022) [facility] Narrative* Problem Noted Date Resolved Date Combined forms of age-related cataract of right eye 06/25/2022 06/25/2022 Photopsia 06/25/2022 06/25/2022 documented as of this encounter (statuses as of 09/20/2022) [facility] Narrative* Problem Noted Date Resolved Date Combined forms of age-related cataract of right eye 06/25/2022 06/25/2022 Photopsia 06/25/2022 06/25/2022 documented as of this encounter (statuses as of 09/26/2022) [facility] Narrative* Problem Noted Date Resolved Date Combined forms of age-related cataract of right eye 06/25/2022 06/25/2022 Photopsia 06/25/2022 06/25/2022 documented as of this encounter (statuses as of 09/27/2022) [facility] Narrative* Problem Noted Date Resolved Date Combined forms of age-related cataract of right eye 06/25/2022 06/25/2022 Photopsia 06/25/2022 06/25/2022 documented as of this encounter (statuses as of 09/28/2022) [facility] Narrative* Problem Noted Date Resolved Date Combined forms of age-related cataract of right eye 06/25/2022 06/25/2022 Photopsia 06/25/2022 06/25/2022 documented as of this encounter (statuses as of 10/01/2022) [facility] Narrative* Problem Noted Date Resolved Date Combined forms of age-related cataract of right eye 06/25/2022 06/25/2022 Photopsia 06/25/2022 06/25/2022 documented as of this encounter (statuses as of 10/02/2022) [facility] Narrative* Problem Noted Date Resolved Date Combined forms of age-related cataract of right eye 06/25/2022 06/25/2022 Photopsia 06/25/2022 06/25/2022 documented as of this encounter (statuses as of 10/02/2022) [facility] Narrative* Problem Noted Date Resolved Date Combined forms of age-related cataract of right eye 06/25/2022 06/25/2022 Photopsia 06/25/2022 06/25/2022 documented as of this encounter (statuses as of 10/04/2022) [facility] Narrative* Problem Noted Date Resolved Date Combined forms of age-related cataract of right eye 06/25/2022 06/25/2022 Photopsia 06/25/2022 06/25/2022 documented as of this encounter (statuses as of 10/09/2022) [facility] Narrative* Problem Noted Date Resolved Date Combined forms of age-related cataract of right eye 06/25/2022 06/25/2022 Photopsia 06/25/2022 06/25/2022 documented as of this encounter (statuses as of 10/11/2022) [facility] Narrative* Problem Noted Date Resolved Date Combined forms of age-related cataract of right eye 06/25/2022 06/25/2022 Photopsia 06/25/2022 06/25/2022 documented as of this encounter (statuses as of 10/17/2022) [facility] Narrative* Problem Noted Date Resolved Date Combined forms of age-related cataract of right eye 06/25/2022 06/25/2022 Photopsia 06/25/2022 06/25/2022 documented as of this encounter (statuses as of 10/17/2022) [facility] Narrative* Problem Noted Date Resolved Date Combined forms of age-related cataract of right eye 06/25/2022 06/25/2022 Photopsia 06/25/2022 06/25/2022 documented as of this encounter (statuses as of 10/25/2022) [facility] Narrative* Problem Noted Date Resolved Date Combined forms of age-related cataract of right eye 06/25/2022 06/25/2022 Photopsia 06/25/2022 06/25/2022 documented as of this encounter (statuses as of 10/26/2022) [facility] Narrative* Problem Noted Date Resolved Date Combined forms of age-related cataract of right eye 06/25/2022 06/25/2022 Photopsia 06/25/2022 06/25/2022 documented as of this encounter (statuses as of 10/29/2022) [facility] Narrative* Problem Noted Date Resolved Date Combined forms of age-related cataract of right eye 06/25/2022 06/25/2022 Photopsia 06/25/2022 06/25/2022 documented as of this encounter (statuses as of 10/31/2022) [facility] Narrative* Problem Noted Date Resolved Date Combined forms of age-related cataract of right eye 06/25/2022 06/25/2022 Photopsia 06/25/2022 06/25/2022 documented as of this encounter (statuses as of 11/02/2022) [facility] Narrative* Problem Noted Date Resolved Date Combined forms of age-related cataract of right eye 06/25/2022 06/25/2022 Photopsia 06/25/2022 06/25/2022 documented as of this encounter (statuses as of 11/05/2022) [facility] Narrative* Problem Noted Date Resolved Date Combined forms of age-related cataract of right eye 06/25/2022 06/25/2022 Photopsia 06/25/2022 06/25/2022 documented as of this encounter (statuses as of 11/13/2022) [facility] Narrative* Problem Noted Date Diagnosed Date Resolved Date Combined forms of age-relate d cataract of right eye 06/25/2022 06/25/2022 Photopsia 06/25/2022 06/25/2022 Combined forms of age-relate d cataract, left eye 04/03/2022 12/29/2022 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, right, indeterminate stage 10/26/2021 0 12/29/2022 documented as of this encounter (statuses as of 07/06/2023) [facility] Narrative* Problem Noted Date Diagnosed Date Resolved Date Combined forms of age-relate d cataract of right eye 06/25/2022 06/25/2022 Photopsia 06/25/2022 06/25/2022 Combined forms of age-relate d cataract, left eye 04/03/2022 12/29/2022 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, right, indeterminate stage 10/26/2021 0 12/29/2022 documented as of this encounter (statuses as of 07/06/2023) [facility] of [facility] Narrative* Problem Noted Date Diagnosed Date Resolved Date Combined forms of age-relate d cataract of right eye 06/25/2022 06/25/2022 Photopsia 06/25/2022 06/25/2022 Combined forms of age-relate d cataract, left eye 04/03/2022 12/29/2022 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, right, indeterminate stage 10/26/2021 0 12/29/2022 documented as of this encounter (statuses as of 07/06/2023) [facility] of [facility] Narrative* Problem Noted Date Diagnosed Date Resolved Date Combined forms of age-relate d cataract of right eye 06/25/2022 06/25/2022 Photopsia 06/25/2022 06/25/2022 Combined forms of age-relate d cataract, left eye 04/03/2022 12/29/2022 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 Author Type: Registered Nurse Type: Nursing Progress Note Filed: 06/25/2022 9:59 AM Note Text: Spoke with Mallika BOAT PERSON that patient has questions for Dr. 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 documented in this encounterOhiohealth Doctors Hospital10-24-2022 History and physical note * Jonathon [...] 2022 TIME: 10:02 AM documented in this encounterOhiohealth Doctors Hospital10-24-2022 Nurse Note* Allie Cardoso RN - 06/25/2022 9:58 AM EDT Spoke with Mallika BOAT PERSON that patient has questions for Dr. Eugene prior to procedure. documented in this encounterOhiohealth Doctors Hospital10-24-2022 Surgical operation note* Operative Report - Jonathon Eugene MD - 06/25/2022 9:58 AM EDT OPERATIVE/PROCEDURE REPORT OPHTHAMOLOGY LOG ID: [id number] SURGERY/PROCEDURE DATE: 06/25/2022 INCISION/PROCEDURE START TIME: 10:13 AM INCISION CLOSE/PROCEDURE END TIME: 11:27 AM SURGEON(S)/PROCEDURALIST(S) AND COO(S): Surgeon(s) and Role: * Jonathon Eugene MD [...] Implant Name Type Inv. Item Serial No. Bonding Machine Tender Lot No. LRB No. Used Action Model No. LENS ACRYSOF ULTRASERT +14.5 DIOPTER ACRYLIC IOL 1 PIECE FOLDABLE UV BLUE - [id number] Intraocular Lens LENS ACRYSOF ULTRASERT +14.5 DIOPTER ACRYLIC IOL 1 PIECE FOLDABLE UV BLUE [id number] [employer] Right 1 Implanted [id number] Ocular Co-Morbidities: Yes Intra-operative Complications None I/primary surgeon/proceduralist performed the entire procedure. SIGNATURE: Jonathon Eugene MD PATIENT NAME: Allie Lynn DATE: June 25, 2022 TIME: 11:31 AM PAGER/CONTACT #: [phone] documented in this encounterOhiohealth Doctors Hospital10-21-2022 Miscellaneous Notes* Telephone Encounter - Janet Rivero RN - 06/22/2022 10:58 AM EDT Pended pre-operative drop prescriptions to Dr. Eugene for approval. Janet Rivero RN June 22, 2022 10:59 AM documented in this encounterOhiohealth Doctors Hospital10-21-2022 Miscellaneous Notes* Telephone Encounter - Meche Salvador - 06/22/2022 9:24 AM EDT Patient's pharmacy has no record of receiving the pre surgical prescriptions. Her surgery is 06-25-22, so she needs to start the drops tomorrow. Please send drops to [facility] [address]. [place], [place] documented in this encounterOhiohealth Doctors Hospital10-19-2022 History of Present illness Narrative* Charlene Grossman MD - 06/20/2022 5:16 PM EDT Images from the original note were not included. Charlene Grossman MD Interventional Cardiology [address] [place], [place] [id number] Chief Complaint Patient presents with: CARD New [...] (RIGHT EYE) Right 10/26/2021 [place] [id number] FAMILY HISTORY Problem Relation Age of Onset Heart Father Age 61 Heart Maternal Grandfather Cancer Paternal Grandmother Breast Cancer Maternal Aunt 55 ovarian cancer Heart Son NE Ovarian cancer Maternal Grandmother Glaucoma No Family [...] to correct any errors. documented in this encounterOhiohealth Doctors Hospital10-19-2022 Nurse Note* Alana Jiang MA - 06/20/2022 12:46 PM EDT Patient c/o bradycardia, palpitations, SOB, chest tenderness documented [facility] this [facility] Miscellaneous Notes* Telephone Encounter - Mauricio Bahena - 06/20/2022 9:32 AM EDT Attempted to contact patient to inform to arrive at [address] [place] [address] at 09:05 am for 06/25/22 surgery with Jonathon Eugene MD, to refrain from eating or drinking for 8 hours prior to arrival for surgery, and to begin the eyedrops in the right eye on 06/23/22. Left message on machine to callwith any questions or concerns. documented in this [facility] Miscellaneous Notes* Telephone Encounter - Celeste [...] Celeste Cardona LPN * Telephone Encounter - [facility] - 05/11/2022 10:15 AM EDT Patient has [...] to pharmacy. No need to notify [facility] documented in this encounterOhiohealth Doctors Hospital09-09-2022 Miscellaneous Notes* Telephone Encounter - Anshul Oliver Ma - 05/11/2022 10:29 AM EDT NOMI: 12/25/2021 Last refill: 09/18/2021 QTY: 60 Refills: 2 * Telephone Encounter - [facility] - 05/11/2022 10:19 AM EDT Patient is requesting medication, Gabapentin 100 mg take one daily at bedtime. She will need these for her upcoming eye procedure. This medication is not on the medication list. Please send to her local pharmacy [facility]. Any questions , please call patient [phone] documented in this encounterOhiohealth Doctors Hospital09-01-2022 History of Present illness Narrative* Viviana Powell Ma - 05/03/2022 4:34 PM EDT EMG/NCV order faxed to [facility] scheduling. Referral done in computer. * Massimo Roberts MD - 05/03/2022 1:30 PM EDT Massimo Roberts MD Department of Orthopaedics Orthopaedics [address] [facility] [address] Dept: [phone] Dept May 03, 2022 CHIEF COMPLAINT: New [...] (RIGHT EYE) Right 10/26/2021 [place] [id number] Family History: FAMILY HISTORY Problem Relation Age of Onset Heart Father Age 61 Heart Maternal Grandfather Cancer Paternal Grandmother Breast Cancer Maternal Aunt 55 ovarian cancer Heart Son NE Ovarian cancer Maternal Grandmother Glaucoma No Family [...] or electronic medical record. Massimo Roberts [address] [facility] [address] Ifeoma Davis MD [address] [facility] [address] Massimo Roberts MD documented in this encounterOhiohealth Doctors Hospital08-24-2022 Miscellaneous Notes* Telephone Encounter - Zainab Leyva - 04/25/2022 10:42 AM EDT INTRAOCULAR LENS ORDER ATTN: [facility] PATIENTS NAME: Allie Lynn SURGERY DATE: 06/25/2022 EYE: OD SURGEON: Jonathon Eugene MD LENS: AcrySof IQ BI TRI OPERATOR: Leonardo MODEL: [id number] POWER: + 14.5 ADDITIONAL NOTES: documented in this encounterOhiohealth Doctors Hospital08-11-2022 History of Present illness Narrative* Jonathon [...] with lens implantation were discussed with Allie Bustos Aamir in detail. she appeared to understand and [...] others. I have seen and examined Allie A Aamir. I have discussed the case and the management of this patient's care with the Resident/Fellow, if applicable. I also have reviewed and agree with the assessment and plan as stated above and agree withall of its relevant components. Jonathon Eugene MD documented in this encounterOhiohealth Doctors Hospital08-02-2022 Instructions* Patient Instructions* Jonathon Eguene MD - 04/03/2022 12:34 PM EDT Images from the original note were not included. documented in this encounterOhiohealth Doctors Hospital08-02-2022 History of Present illness Narrative* Jonathon [...] as other activities of daily living. Allie Juli Lynn has confirmed that she is no [...] with lens implantation were discussed with Allie Juli Lynn in detail. she appeared to understand [...] components. 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 I have seen and examined this patient. I have discussed the case and the management of this patient's care with the Resident/Fellow/Cooking Instructor, if applicable. I also have reviewed and agree with the assessment and plan as stated above and agree with all of its relevant components. Cynthia Ramos MD April 03, 2022 5:22 PM documented in this encounterOhiohealth Doctors Hospital07-13-2022 History of Present illness Narrative* Jonathon [...] components. Jonathon Eugene MD documented in this encounterOhiohealth Doctors Hospital07-01-2022 Miscellaneous Notes* Telephone Encounter - Janet [...] Dr. Eugene. Please advise. documented in this encounterOhio[facility]06[facility]28-[facility]22 History of Present illness Narrative* Jonathon [...] components. Jonathon Eugene MD documented in this encounterOhiohealth Doctors Hospital06-11-2022 Miscellaneous Notes* Telephone Encounter - Aleksandra Min LPN - 02/10/2022 11:58 AM EDT Patient notified on mychart. * Telephone Encounter - Alise Dejesus APRN.CNP - 02/10/2022 11:20 AM EDT No growth for urine culture. If symptoms persist then follow up with PCP Please notify thank you documented in this encounterOhiohealth Doctors Hospital06-10-2022 Miscellaneous Notes* Telephone Encounter - Mary Goodwin Pss - 02/09/2022 10:05 AM EDT Pharmacy verified in [facility] Patient has been identified by [...] advise. Mary Goodwin Pss documented in this encounterOhiohealth [facility] Hospital06-09-2022 Miscellaneous Notes* Telephone Encounter - Janet [...] is not covered by most insurance companies. [employer] offers pricing of over $200.00 for all Pharmacies. [employer] does NOT cover it. The school cafeteria cook of [employer] recommends using an on-line Pharmacy, [facility]. They DO NOT submit [...] that she can use? documented in this encounterOhiohealth Doctors Hospital05-13-2022 Miscellaneous Notes* Telephone Encounter - Mary Tamez RN - 01/12/2022 10:46 AM EDT Patient last seen for annual exam on 12/04/21. Needs a new RX for Prempro. Out of refills. RX pending. Pending Prescriptions Disp Refills CONJ ESTROGEN-MEDROXYPROGESTERONE 0.45 MG-1.5 MG TABLET 84 tablet 2 Sig: Take 1 tablet by mouth once daily. WALTER: No Mary Tamez RN documented in this encounterOhiohealth Doctors Hospital04-25-2022 History of Present illness Narrative* Ifeoma [...] (RIGHT EYE) Right 10/26/2021 S BALLOON,[place] ABLATION [address] FAMILY HISTORY Problem Relation Age of Onset Heart Father Age 61 Heart Maternal Grandfather Cancer Paternal Grandmother Breast Cancer Maternal Aunt 55 ovarian cancer Heart Son NE Ovarian cancer Maternal Grandmother Glaucoma No Family [...] IVCON Ifeoma Davis MD documented in this encounterOhiohealth Doctors Hospital04-19-2022 History of Present illness Narrative* Cynthia [...] in both eyes as often as needed (H40.4114) Primary open angle glaucoma (POAG) of both [...] (H52.7) Refractive error Comment: Myopia, 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 I also have reviewed and agree with the assessment and plan as stated above and agree with all of its relevant components. Cynthia Ramos MD December 19, 2021 2:17 PM documented in this encounterOhiohealth Doctors Hospital04-11-2022 Miscellaneous Notes* Telephone Encounter - Dara [...] Anna APRN.CNP * Telephone Encounter - Mary Lofotn - 12/07/2021 9:06 AM EDT Pt called stating that Dr. Chavez is suggesting an MRA brain be order due to vertigo. documented in this encounterOhiohealth Doctors Hospital04-04-2022 History of Present illness Narrative* Destiney [...] L3 SAB0 IAB0 Ectopic0 Multiple0 Live Births0 Credit Assessment Analyst History LMP: Ablation Age at Menarche: Age at First : Age at Menopause: Credit Assessment Analyst History Comments: Sexual Activity: Not Asked; Male [...] (RIGHT EYE) Right 10/26/2021 S BALLOON,[place] ABLATION [id number] FAMILY HISTORY Problem Relation Age of Onset Heart Father Age 61 Heart Maternal Grandfather Cancer Paternal Grandmother Breast Cancer Maternal Aunt 55 ovarian cancer Heart Son NE Ovarian cancer Maternal Grandmother Glaucoma No Family [...] external genitalia normal, normal Bar[place]olin's glands, urethra, [place]'s glands, no vulvar lesions, no cervical lesions, [...] year or sooner as needed Destiney Pendleton APRN.LINEN SORTER documented in this encounterOhiohealth Doctors Hospital03-29-2022 History of Present illness Narrative* Cynthia [...] (H52.7) Refractive error Comment: Myopia, 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 I also have reviewed and agree with the assessment and plan as stated above and agree with all of its relevant components. Cynthia Ramos MD December 03, 2021 3:53 PM documented in this encounterOhio[facility]Eval[facility]* Diagnosis Follow-up exam- Primary Unspecified follow-up examination documented in this encounter [facility]* Diagnosis Encounter for gynecological examination (general) (routine) without abnormal findings- Primary Encounter for screening mammogram for breast cancer documented in this encounter [facility]* Diagnosis Follow-up exam- Primary Unspecified follow-up examination Photopsia Other visual distortions and entoptic phenomena 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 documented in this encounter [facility]* Diagnosis 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 Vertigo Dizziness and giddiness Memory deficits Memory loss New daily persistent headache Chronic mixed headache syndrome Other headache syndromes documented in this encounter [facility]* Diagnosis 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 injury Post-traumatic headache, unspecified documented in this encounter [facility]* Diagnosis Photopsia- Primary Other visual distortions and entoptic phenomena Primary open angle glaucoma (POAG) of both eyes, indeterminate stage Combined form of age-related cataract, 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 Marginal corneal ulcer documented in this encounter [facility]* Diagnosis Photopsia- Primary Other visual distortions [...] by other means [facility] Pseudophakia, right eye- Primary Lens replaced by other means [facility] Diagnosis Functional dyspepsia Dyspepsia and other specified disorders of function of stomach Nausea Nausea alone [facility]* Diagnosis 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 injury Post-traumatic headache, unspecified [facility]* Diagnosis Blindness right eye category 3, blindness left eye category 4- Primary Pseudophakia, right eye Lens replaced by other means Combined forms of age-related cataract, left eye Hyperopia of right eye [facility]* Diagnosis Blindness right eye category 3, blindness left eye category 4- Primary Difficulty with household tasks Impaired mobility and personal care Personal care impairment Other specified conditions influencing health status Complaints of difficulty with reading Developmental reading disorder, unspecified [facility]* Diagnosis Annual physical exam- Primary Routine general medical examination at a health care facility documented in this encounter [facility]* Diagnosis Abnormal mammogram- Primary Abnormal mammogram, unspecified [facility] Diagnosis Pain in both hands- Primary [facility] Diagnosis Trigger ring finger of right hand- Primary Trigger finger (acquired) Trigger middle finger of left hand Trigger finger (acquired) Trigger ring finger of right hand Trigger finger (acquired) Trigger middle finger of left hand Trigger finger (acquired) [facility]* Diagnosis Nuclear senile cataract of left eye- Primary Primary open angle glaucoma (POAG) of left eye, severe stage Trigger ring finger of right hand Trigger finger (acquired) Trigger middle finger of left hand Trigger finger (acquired) [facility]* Diagnosis Gastroesophageal reflux disease with [...] eye Vitreous prolapse [facility] noteNo assessment information availableWMcKitrick [facility] Work Phone: Evaluation note* Diagnosis Secondary glaucoma, indeterminate stage, 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 Pseudophakia of both eyes Lens replaced by other means [facility]* Diagnosis Gastroesophageal reflux disease, unspecified whether esophagitis present- Primary Change in bowel habits Other symptoms involving digestive system documented in this encounter [facility]* Diagnosis Legally blind- Primary Legal blindness, as defined in [place] documented in this encounter [facility]* Diagnosis Numbness and tingling in right hand- Primary Disturbance of skin sensation documented in this encounter [facility]* Diagnosis Trigger finger, unspecified finger, unspecified laterality documented in this encounter [facility]* Diagnosis Abnormal mammogram Abnormal mammogram, unspecified documented in this encounter [facility]* Diagnosis Pain in both hands documented in this encounter [facility]* Diagnosis Abnormal mammogram Abnormal mammogram, unspecified documented in this encounter [facility] note* Diagnosis Encounter for screening mammogram for breast cancer documented in this encounter [facility]* Diagnosis Secondary glaucoma, indeterminate stage, 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 documented in this encounter [facility]* Diagnosis Encounter for screening mammogram for breast cancer documented in this encounter [facility]* Diagnosis Trigger finger, unspecified finger, unspecified laterality documented in this encounter [facility]* Diagnosis Bacterial sinusitis- Primary Unspecified sinusitis (chronic) documented [facility] this encounter [facility]* Diagnosis Onset Date Resolution Status Injury of right rotator cuff acute [facility] Work Phone: Evaluation note* Diagnosis Encounter for gynecological examination (general) (routine) without abnormal findings- Primary Encounter for screening for human papillomavirus (HPV) Special screening examination for human papillomavirus (HPV) Pap smear for cervical cancer screening Screening for malignant neoplasm of the cervix Encounter for screening mammogram for breast cancer documented in this encounter [facility]* Diagnosis 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 injury Post-traumatic headache, unspecified documented in this encounter [facility]* Diagnosis Secondary glaucoma, indeterminate stage, 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 Pseudophakia of both eyes Lens replaced by other means Legally blind Legal blindness, as defined in [place] documented in this encounter [facility] note* Diagnosis Hypertension Unspecified essential hypertension Mixed hyperlipidemia Medication management Encounter for long-term (current) use of other medications documented in this encounter [facility] note* Diagnosis Annual wellness visit- Primary [...] hyperlipidemia documented in this encounter [facility] note* Diagnosis Allergic contact dermatitis due to plants, except food- Primary Contact dermatitis and other eczema due to plants (except food) documented in this encounter [facility] note* Diagnosis Establishing care with new [...] unspecified documented in this encounter [facility] note* Diagnosis Establishing care with new [...] system documented in this encounter [facility] note* Diagnosis Legally blind- Primary Legal blindness, as defined in [place] 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 Trigger finger, unspecified finger, unspecified laterality Mixed hyperlipidemia Primary hypertension Unspecified essential hypertension Swelling of both hands Gastroesophageal reflux disease with esophagitis, unspecified whether hemorrhage documented in this encounter [facility] note* Diagnosis Establishing care with new [...] mammogram documented in this encounter [facility] note* Diagnosis Establishing care with new [...] skin documented in this encounter [facility] note* Diagnosis Establishing care with new [...] hemorrhage documented in this encounter [facility] note* Diagnosis Establishing care with new [...] Primary documented in this encounter [facility] note* Diagnosis Establishing care with new [...] (pediatric) documented in this encounter [facility] note* Diagnosis Establishing care with new [...] skin documented in this encounter [facility] note* Diagnosis Establishing care with new [...] Primary documented in this encounter [facility] note* Diagnosis Establishing care with new [...] disturbances documented in this encounter [facility] note* Diagnosis Establishing care with new [...] type documented in this encounter [facility] note* Diagnosis Establishing care with new [...] type documented in this encounter [facility] note* Diagnosis Establishing care with new [...] choroid documented in this encounter [facility] note* Diagnosis Establishing care with new [...] choroid documented in this encounter [facility] note* Diagnosis Establishing care with new [...] cancer documented in this encounter [facility] note* Diagnosis Establishing care with new [...] anomaly of skin documented in this encounter [facility]* Diagnosis Establishing care with new doctor, [...] site not specified documented in this encounter [facility]* Diagnosis Establishing care with new doctor, [...] unspecified Other fatigue [facility]* Diagnosis Establishing care with new doctor, [...] (pediatric) documented in this encounter [facility] note* Diagnosis Establishing care with new [...] Hypopotassemia documented in this encounter [facility] note* Diagnosis Establishing care with new [...] Primary documented in this encounter [facility] note* Diagnosis Establishing care with new [...] (pediatric) documented in this encounter [facility] note* Diagnosis Establishing care with new [...] deficiency Mixed hyperlipidemia [facility]* Diagnosis Establishing care with new doctor, [...] Legally blind Legal blindness, as defined in [facility] Sleep apnea, unspecified type documented [facility] this encounter [facility]* Diagnosis Establishing care with new doctor, [...] Unspecified essential hypertension documented [facility] this [facility]* Diagnosis Establishing care with new doctor, [...] of left eye documented in this encounter [facility]* Diagnosis Establishing care with new doctor, [...] disease documented in this encounter [facility] note* Diagnosis Establishing care with new [...] disease documented in this encounter [facility] note* Diagnosis Establishing care with new [...] hyperlipidemia documented in this encounter [facility] note* Diagnosis Establishing care with new [...] complications documented in this encounter [facility] note* Diagnosis Establishing care with new [...] bilateral carotid artery stenosis per last 06/2024 * Assessment & Plan Note - [...] 126/82 11/18/2023 124/72 documented [facility] encounter [facility]* Diagnosis Establishing care with new [...] Primary documented in this encounter [facility] note* Diagnosis Establishing care with new [...] Insomnia, unspecified type documented [facility]* Diagnosis Establishing care with new doctor, [...] following other surgery documented [facility] this encounter [facility]* Diagnosis Establishing care with new [...] site documented in this encounter [facility] note* Diagnosis Establishing care with new [...] plants (except food) documented in this encounter [facility]* Diagnosis Establishing care with new [...] indeterminate stage, bilateral documented in this encounter [facility]* Diagnosis Establishing care with new [...] specified erythematous condition [facility] Discharge instructionsAdditional Instructions Follow-up with your primary care physician. Return back to ED if symptoms change or worsen.[facility] Work Phone: Reason for referral (narrative)* Diagnostic Procedure Only (Routine) - Pending Review Specialty Diagnoses / Procedures Referred By Shiraz johnson Referred To Contact [facility] Diagnoses Encounter for screening mammogram for breast cancer Procedures GENOVEVA SCREENING SCREENING MAMMOGRAPHY BI 2-VIEW BREAST INC Destiney Proctor APRN.CNP [address] [place] [address] [facility] [place] [address] Referral ID Status Reason Start Date Expiration Date Visits Requested Visits Authorized [id number] Pending Review Auto-Generat ed Referral 12/04/2021 01/03/2023 1 1 [facility] for referral (narrative)* Outpatient Procedure (Routine) - Pending Review Specialty Diagnoses / Procedures Referred By Shiraz johnson Referred To Contact [facility] Diagnoses Pain in both hands Procedures EMG(NEURO/NI) NERVE CONDUCTION STUDIES 9-10 STUDIES Massimo Roberts MD [address] [place] [address] [facility] [place] [address] [place] [address] Referral ID Status Reason Start Date Expiration Date Visits Requested Visits Authorized [id number] Pending Review Auto-Generat ed Referral 05/03/2022 05/03/2023 1 1 [facility] for referral (narrative)* Outpatient Procedure (Routine) - Pending Review Specialty Diagnoses / Procedures Referred By Contac t Referred To Contact [facility] Diagnoses PXE (pseudoxanthoma elasticum) Procedures ECHO ECHO TTHRC R-T 2D W/WOM-MODE COMPL SPEC&COLR D Charlene Grossman MD [address] [place] [address] [facility] [address] [place] [id number] Referral ID Status Reason Start Date Expiration Date Visits Requested Visits Authorized [id number] Pending Review Auto-Generat ed Referral 2 06/20/2023 1 1 [facility] for referral (narrative)* Diagnostic Procedure Only (Routine) - Pending Review Specialty Diagnoses / Procedures Referred By Shiraz t Referred To Contact [facility] Diagnoses Abnormal mammogram Procedures GENOVEVA DIAGNOSTIC RT DIAGNOSTIC MAMMOGRAPHY COMPUTER-AIDED DETCJ UNI Destiney Pendleton APRN.LINEN SORTER [address] [facility] [address] [place] [address] [facility] [address] [place] [address] Referral ID Status Reason Start Date Expiration Date Visits Requested Visits Authorized [id number] Pending Review Auto-Generat ed Referral 09/28/2022 10/28/2023 1 1 * Diagnostic Procedure Only (Routine) - Pending Review Specialty Diagnoses / Procedures Referred By Shiraz t Referred To Contact [facility] Diagnoses Abnormal mammogram Procedures US BREAST LTD RT US BREAST UNI REAL TIME WITH IMAGE LIMITED Destinye Pendleton APRN.LINEN SORTER [address] [place] [address] [facility] [address] [place] [address] Referral ID Status Reason Start Date Expiration Date Visits Requested Visits Authorized [id number] Pending Review Auto-Generat ed Referral 09/28/2022 10/28/2023 1 1 [facility] for referral (narrative)* Diagnostic Procedure Only (Routine) - Closed Specialty Diagnoses / Procedures Referred By Contac t Referred To Contact XR IMAGING Diagnoses Pain in both hands Procedures XR HAND GENERAL 3V PA/LAT/OBL BILATERAL RADEX HAND MINIMUM 3 VIEWS Massimo Roberts MD [address] [place] [address] Xr Imaging Referral ID Status Reason Start Date Expiration Date V isits Requested Visits Authorized [id number] Closed Auto-Generate d Referral 10/01/2022 10/31/2023 1 1 [facility] for referral (narrative)* Outpatient Procedure (Routine) - Authorized Specialty Diagnoses / Procedures Referred By Contac t Referred To Contact [facility] Diagnoses Change in bowel habits Procedures COLONOSCOPY DIAGNOSTIC COLONOSCOPY FLX DX W/COLLJ SPEC WHEN PFRMD Cande Pozo PA-C [address] [place] [address] [facility] [place] [address] [place] [address] Referral ID Status Reason Start Date Expiration Date Visits Requested Visits Authorized [id number] Authorized Auto-Generat ed Referral 04/30/2023 04/30/2024 1 1 * Outpatient Procedure (Routine) - Authorized Specialty Diagnoses / Procedures Referred By Contac t Referred To Contact [facility] Diagnoses Gastroesophageal reflux disease, unspecified whether esophagitis present Procedures EGD DIAGNOSTIC ESOPHAGOGASTRODUODENOSC OPY TRANSORAL DIAGNOSTIC Cande Pozo PA-C [address] [facility] [place] [address] [facility] [place] [address] [place] [address] Referral ID Status Reason Start Date Expiration Date Visits Requested Visits Authorized [id number] Authorized Auto-Generat ed Referral 04/30/2023 04/30/2024 1 1 [facility] for referral (narrative)* Outpatient Procedure (Routine) - Pending Review Specialty Diagnoses / Procedures Referred By Contac t Referred To Contact [facility] Diagnoses Numbness and tingling in right hand Procedures EMG(NEURO/NI) NERVE CONDUCTION STUDIES 9-10 STUDIES Massimo Roberts MD [address] [place] [address] [facility] [place] [address] [place] [address] Referral ID Status Reason Start Date Expiration Date Visits Requested Visits Authorized [id number] Pending Review Auto-Generat ed Referral 04/25/2023 04/25/2024 1 1 [facility] for referral (narrative)* Diagnostic Procedure Only (Routine) - Closed Specialty Diagnoses / Procedures Referred By Contac t Referred To Contact [facility] Diagnoses Abnormal mammogram Procedures US BREAST LTD RT US BREAST UNI REAL TIME WITH IMAGE LIMITED Destiney Pendleton APRN.CNP [address] [place] [address] [facility] [address] [place] [address] Referral ID Status Reason Start Date Expiration Date V isits Requested Visits Authorized [id number] Closed Auto-Generate d Referral 09/28/2022 10/28/2023 1 1 [facility] for referral (narrative)* Diagnostic Procedure Only (Routine) - Closed Specialty Diagnoses / Procedures Referred By Contac t Referred To Contact XR IMAGING Diagnoses Pain in both hands Procedures XR HAND GENERAL 3V PA/LAT/OBL BILATERAL RADEX HAND MINIMUM 3 VIEWS Massimo Roberts MD [address] [place] [address] [place] [address] Referral ID Status Reason Start Date Expiration Date V isits Requested Visits Authorized [id number] Closed Auto-Generate d Referral 10/01/2022 10/31/2023 1 1 [facility] for referral (narrative)* Diagnostic Procedure Only (Routine) - Closed Specialty Diagnoses / Procedures Referred By Shiraz t Referred To Contact [facility] Diagnoses Encounter for screening mammogram for breast cancer Procedures GENOVEVA SCREENING SCREENING MAMMOGRAPHY BI 2-VIEW BREAST INC CAD Destiney Pendleton APRN.LINEN SORTER [address] [place] [address] [facility] [address] [place] [address] Referral ID Status Reason Start Date Expiration Date V isits Requested Visits Authorized [id number] Closed Auto-Generate d Referral 09/05/2022 09/01/2023 1 1 [facility] for referral (narrative)* Diagnostic Procedure Only (Routine) - Pending Review Specialty Diagnoses / Procedures Referred By Shiraz johnson Referred To Contact [facility] Diagnoses Encounter for gynecological examination (general) (routine) without abnormal findings Encounter for screening mammogram for breast cancer Procedures GENOVEVA SCREENING SCREENING MAMMOGRAPHY BI 2-VIEW BREAST INC CAD Destiney Pendleton APRN.LINEN SORTER [address] [place] [address] [facility] Imaging [address] [place] [address] Referral ID Status Reason Start Date Expiration Date Visits Requested Visits Authorized [id number] Pending Review Auto-Generat ed Referral 12/24/2023 01/22/2025 1 1 [facility] for referral (narrative)* Outpatient Procedure (Routine) - Closed Specialty Diagnoses / Procedures Referred By Contac t Referred To Contact [facility] Diagnoses Change in bowel habits Procedures COLONOSCOPY DIAGNOSTIC COLONOSCOPY FLX DX W/COLLJ SPEC WHEN PFRMD Cande Pozo PA-C [address] [place] [address] [facility] [place] [address] [place] [address] Referral ID Status Reason Start Date Expiration Date V isits Requested Visits Authorized [id number] Closed Auto-Generate d Referral 04/30/2023 04/30/2024 1 1 * Outpatient Procedure (Routine) - Closed Specialty Diagnoses / Procedures Referred By Shiraz t Referred To Contact [facility] Diagnoses Gastroesophageal reflux disease, unspecified whether esophagitis present Procedures EGD DIAGNOSTIC ESOPHAGOGASTRODUODENOSC OPY TRANSORAL DIAGNOSTIC Cande Pozo PA-C [address] [place] [address] [facility] [address] [place] [address] Referral ID Status Reason Start Date Expiration Date V isits Requested Visits Authorized [id number] Closed Auto-Generate d Referral 04/30/2023 04/30/2024 1 1 [facility] for referral (narrative)* Diagnostic Procedure Only (Routine) - Authorized Specialty Diagnoses / Procedures Referred By Contac t Referred To Contact [facility] Diagnoses Encounter for screening mammogram for malignant neoplasm of breast Procedures GENOVEVA SCREENING W LILLY SCREENING DIGITAL BREAST TOMOSYNTHESIS BI SCREENING MAMMOGRAPHY BI 2-VIEW BREAST INC Ifeoma Bill MD [address] [place] [address] [facility] [address] [place] [address] Referral ID Status Reason Start Date Expiration Date Visits Requested Visits Authorized [id number] Authorized Auto-Generat ed Referral 10/1107/12/2025 1 1 [facility] for referral (narrative)* Outpatient Procedure (Routine) - Closed Specialty Diagnoses / Procedures Referred By Shiraz t Referred To Contact [facility] Diagnoses PXE (pseudoxanthoma elasticum) Procedures US CAROTID ARTERIES MARYAN VAS LAB DUPLEX SCAN EXTRACRANIAL ART COMPL BI STUDY Ifeoma Davis MD [address] [place] [address] [facility] [place] [address] [place] [address] Referral ID Status Reason Start Date Expiration Date V isits Requested Visits Authorized [id number] Closed Auto-Generate d Referral 05/14/2024 05/14/2025 1 1 [facility] for referral (narrative)No reason for referral information [facility]: [facility] for visit Narrative* Diagnostic Procedure Only (Routine) - Closed Specialty Diagnoses / Procedures Referred By Shiraz t Referred To Contact XR IMAGING Diagnoses Pain Procedures XR HAND GENERAL 3V PA/LAT/OBL BILATERAL RADEX HAND MINIMUM 3 VIEWS Massimo Roberts MD [address] [place] [address] [place] [address] Referral ID Status Reason Start Date Expiration Date V isits Requested Visits Authorized [id number] Closed Auto-Generate d Referral 04/20/2022 09/01/2023 1 1 [facility] for visit Narrative* Diagnostic Procedure Only (Routine) - Closed Specialty Diagnoses / Procedures Referred By Shiraz t Referred To Contact [facility] Diagnoses Abnormal mammogram Procedures GENOVEVA DIAGNOSTIC RT DIAGNOSTIC MAMMOGRAPHY COMPUTER-AIDED DETCJ Destiney Cortez, MURTAZA.LINEN SORTER [address] [place] [address] Br Imaging [address] [place] [address] Referral ID Status Reason Start Date Expiration Date V isits Requested Visits Authorized [id number] Closed Auto-Generate d Referral 09/28/2022 10/28/2023 1 1 [facility] for visit Narrative* Diagnostic Procedure Only (Routine) - Closed Specialty Diagnoses / Procedures Referred By Contac t Referred To Contact [facility] Diagnoses Encounter for screening mammogram for breast cancer Procedures GENOVEVA SCREENING SCREENING MAMMOGRAPHY BI 2-VIEW BREAST INC [facility], [employer] SALESPERSON.LINEN SORTER [address] [place] [address] [facility] Imaging [address] [place] [address] Referral ID Status Reason Start Date Expiration Date V isits Requested Visits Authorized [id number] Closed Auto-Generate d Referral 12/10/2022 01/09/2024 1 1 [facility] for visit Narrative* Outpatient Procedure (Routine) - Closed Specialty Diagnoses / Procedures Referred By Shiraz t Referred To Contact [facility] Diagnoses Change in bowel habits Procedures COLONOSCOPY DIAGNOSTIC COLONOSCOPY FLX DX W/COLLJ SPEC WHEN PFRMD Cande Pozo PA-C [address] [facility] [address] [facility] [place] [address] [place] [address] Referral ID Status Reason Start Date Expiration Date V isits Requested Visits Authorized [id number] Closed Auto-Generate d Referral 04/30/2023 04/30/2024 1 1 [facility] for visit Narrative* Diagnostic Procedure Only (Routine) - Closed Specialty Diagnoses / Procedures Referred By Shiraz t Referred To Contact [facility] Diagnoses Encounter for gynecological examination (general) (routine) without abnormal findings Encounter for screening mammogram for breast cancer Procedures GENOVEVA SCREENING SCREENING MAMMOGRAPHY BI 2-VIEW BREAST INC [facility], [employer].LINEN SORTER [address] [place] [address] Phone: tel: fax: [facility] [address] [place] [address] Referral ID Status Reason Start Date Expiration Date V isits Requested Visits Authorized [id number] Closed Auto-Generate d Referral 12/24/2023 01/22/2025 1 1 [facility] Advance Directives Documents on File Type Date Recorded 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 Advance Directive(s) 10/26/2021 12:12 PM Advance Directive(s) 09/14/2021 11:54 AM Advance Directive(s) 06/22/2019 12:39 PM Advance Directive(s) 02/03/2018 1:55 PM Advance Directive(s) 01/30/2018 9:51 AM Documents on File Type Date Recorded 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 Yes May 27, 2025 6:56pm Advance Directives Yes November 24, 2 025 3:06pm Advance Directive Response Recorded Date/ Time Do you have a Healthcare Power of Coal Inspector? Yes May 27, 2025 6:56pm Do you have a Healthcare Power of Coal Inspector? Yes June 17, 2025 6:25pm Name of Medical Power of Coal Inspector Melvin Nassar June 17, 2025 6:25pm Do you have a Healthcare Power of Coal Inspector? No June 23, 2025 5:47pm Do you have a Healthcare Power of Coal Inspector? No June 29, 2025 2:44am Advance Directives Yes November 24, 2 025 3:06pm Advance Directive Response Recorded Date/ Time Do you have a Healthcare Power of Coal Inspector? Yes May 27, 2025 5:56pm Do you have a Healthcare Power of Coal Inspector? Yes June 17, 2025 5:25pm Name of Medical Power of Coal Inspector Melvin Nassar June 17, 2025 5:25pm Do you have a Healthcare Power of Coal Inspector? No June 23, 2025 4:47pm Do you have a Healthcare Power of Coal Inspector? No June 29, 2025 1:44am Do you have a Healthcare Power of Coal Inspector? No July 10, 2025 3:06pm Advance Directives Yes November 24 2:06pm Reason for Referral Specialty Diagnoses / Procedures Referred By Shiraz t Referred To Contact MR IMAGING Diagnoses 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) Vertigo Memory deficits New daily persistent headache Procedures MRI BRAIN WO/W IVCON MRI BRAIN BRAIN STEM W/O W/CONTRAST MATERIAL Ifeoma Davis MD [facility] [place] [address] Mr Imaging Referral ID Status Reason Start Date Expiration Date Visits Requested Visits Authorized [id number] Authorized Auto-Generat ed Referral 12/25/2021 01/24/2023 1 1 Specialty Diagnoses / Procedures Referred By Shiraz johnson Referred To Contact [facility] Diagnoses Blindness right eye category 3, blindness left eye category 4 Procedures CONSULT TO KENNEL STAFF MEMBER OCCUPATIONAL THERAPY EVAL HIGH COMPLEX 60 MINS Wolf Mason, OD [address] [facility] [address] [place] [address] [facility] [address] [address] Referral ID Status Reason Start Date Expiration Date Visits Requested Visits Authorized [id number] Pending Review Auto-Generat ed Referral 2 08/16/2023 [...] DIRECT PT CONTACT EACH 15 MIN Ot [address] [facility] [address] [address] Referral ID Status Reason Start Date Expiration Date Visits Requested Visits Authorized [id number] Pending Review PCP Requested Referral Auto-Generate d Referral 09/19/2022 12/18/2022 1 1 Specialty Diagnoses / Procedures Referred By Shiraz t Referred To Contact Gastroenterology Diagnoses Gastroesophageal reflux disease with esophagitis, unspecified whether hemorrhage Procedures CONSULT TO GASTROENTEROLOGY OFFICE/OUTPATIENT [facility] MDM 60-74 MINUTES Ifeoma Davis MD [address] [place] [address] Referral ID Status Reason Start Date Expiration Date Visits Requested Visits Authorized [id number] Pending Review PCP Requested Referral 10/16/2022 10/16/2023 1 1 Specialty Diagnoses / Procedures Referred By Contac t Referred To Contact [facility] Diagnoses Gastroesophageal reflux disease with esophagitis, unspecified whether hemorrhage Procedures ECG COMPLETE ECG ROUTINE ECG W/LEAST 12 LDS W/I&R Ifeoma Davis MD [address] [place] [address] [facility] [place] [address] [place] [address] Referral ID Status Reason Start Date Expiration Date Visits Requested Visits Authorized [id number] Pending Review Auto-Generat ed Referral 10/16/2022 10/16/2023 1 1 Specialty Diagnoses / Procedures Referred By Contac t Referred To Contact [facility] Diagnoses Trigger ring finger of right hand Trigger middle finger of left hand Procedures CONSULT TO KENNEL STAFF MEMBER OCCUPATIONAL THERAPY EVAL HIGH COMPLEX 60 MINS Taina Fan PA-C [address] [place] [address] [facility] [address] [address] Referral ID Status Reason Start Date Expiration Date Visits Requested Visits Authorized [id number] Pending Review Auto-Generat ed Referral 11/19/2022 11/19/2023 1 1 Specialty Diagnoses / Procedures Referred By Contac t Referred To Contact Destiney Pendleton, MURTAZA.LINEN SORTER [address] [place] [address] Referral ID Status Reason Start Date Expiration Date Visits Re quested Visits Authorized [id number] Closed 1 1 Specialty Diagnoses / Procedures Referred By Contac t Referred To Contact Diagnoses 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 injury Calli Duvall, [employer] SALESPERSON.LINEN SORTER [address] [place] [address] Referral ID Status Reason Start Date Expiration Date Visits Re quested Visits Authorized [id number] Closed 1 1 Specialty Diagnoses / Procedures Referred By Shiraz johnson Referred To Contact Diagnoses DAYSI (obstructive sleep apnea) 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) Procedures CONSULT TO SLEEP MEDICINE - ADULT OFFICE/OUTPATIENT [facility] 60 MINUTES Ifeoma Davis MD [address] [place] [address] Referral ID Status Reason Start Date Expiration Date Visits Requested Visits Authorized [id number] Authorized PCP Requested Referral 07/28/2025 1 1 Specialty Diagnoses / Procedures Referred By Shiraz johnson Referred To Contact Diagnoses Vasomotor symptoms due to menopause Destiney Pendleton APRN.LINEN SORTER [address] [place] [address] Referral ID Status Reason Start Date Expiration Date V isits Requested Visits Authorized [id number] Authorized 06/16/2024 09/15/2025 1 1 Medications Administered [...] 1500, Until Sat02/28/22 at 025, Administer for pneumo tonometry, tonopen tonometry, or [...] Given 06/25/2022 11:25 AM EDT 0.1 mL zfkxlxzx-zpaueosbd-squkkcupy sone 3.5 mg/g-10,000 unit/g-0.1 % (POLYDEX) X [...] or prosecute any alcohol or drug abuse patient.[facility] HospitalIn the event this information is protected by the Federal Confidentiality of Alcohol and Drug Abuse Patient Records regulations: The Federal rules restrict any use of the information to criminally investigate or prosecute any alcohol or drug abuse patient.[facility] HospitalIn the event this information is protected by the Federal Confidentiality of Alcohol and Drug Abuse Patient Records regulations: The Federal rules restrict any use of the information to criminally investigate or prosecute any alcohol or drug abuse patient.[facility] HospitalIn the event this information is protected by the Federal Confidentiality of Alcohol and Drug Abuse Patient Records regulations: The Federal rules restrict any use of the information to criminally investigate or prosecute any alcohol or drug abuse patient.[facility] HospitalIn the event this information is protected by the Federal Confidentiality of Alcohol and Drug Abuse Patient Records regulations: The Federal rules restrict any use of the information to criminally investigate or prosecute any alcohol or drug abuse patient.[facility] HospitalIn the event this information is protected by the Federal Confidentiality of Alcohol and Drug Abuse Patient Records regulations: The Federal rules restrict any use of the information to criminally investigate or prosecute any alcohol or drug abuse patient.[facility] HospitalIn the event this information is protected by the Federal Confidentiality of Alcohol and Drug Abuse Patient Records regulations: The Federal rules restrict any use of the information to criminally investigate or prosecute any alcohol or drug abuse patient.[facility] HospitalIn the event this information is protected by the Federal Confidentiality of Alcohol and Drug Abuse Patient Records regulations: The Federal rules restrict any use of the information to criminally investigate or prosecute any alcohol or drug abuse patient.[facility] HospitalIn the event this information is protected by the Federal Confidentiality of Alcohol and Drug Abuse Patient Records regulations: The Federal rules restrict any use of the information to criminally investigate or prosecute any alcohol or drug abuse patient.[facility] HospitalIn the event this information is protected by the Federal Confidentiality of Alcohol and Drug Abuse Patient Records regulations: The Federal rules restrict any use of the information to criminally investigate or prosecute any alcohol or drug abuse patient.[facility] HospitalIn the event this information is protected by the Federal Confidentiality of Alcohol and Drug Abuse Patient Records regulations: The Federal rules restrict any use of the information to criminally investigate or prosecute any alcohol or drug abuse patient.[facility] HospitalIn the event this information is protected by the Federal Confidentiality of Alcohol and Drug Abuse Patient Records regulations: The Federal rules restrict any use of the information to criminally investigate or prosecute any alcohol or drug abuse patient.[facility] HospitalIn the event this information is protected by the Federal Confidentiality of Alcohol and Drug Abuse Patient Records regulations: The Federal rules restrict any use of the information to criminally investigate or prosecute any alcohol or drug abuse patient.[facility] HospitalIn the event this information is protected by the Federal Confidentiality of Alcohol and Drug Abuse Patient Records regulations: The Federal rules restrict any use of the information to criminally investigate or prosecute any alcohol or drug abuse patient.[facility] HospitalIn the event this information is protected by the Federal Confidentiality of Alcohol and Drug Abuse Patient Records regulations: The Federal rules restrict any use of the information to criminally investigate or prosecute any alcohol or drug abuse patient.[facility] HospitalIn the event this information is protected by the Federal Confidentiality of Alcohol and Drug Abuse Patient Records regulations: The Federal rules restrict any use of the information to criminally investigate or prosecute any alcohol or drug abuse patient.[facility] HospitalIn the event this information is protected by the Federal Confidentiality of Alcohol and Drug Abuse Patient Records regulations: The Federal rules restrict any use of the information to criminally investigate or prosecute any alcohol or drug abuse patient.[facility] HospitalIn the event this information is protected by the Federal Confidentiality of Alcohol and Drug Abuse Patient Records regulations: The Federal rules restrict any use of the information to criminally investigate or prosecute any alcohol or drug abuse patient.[facility] HospitalIn the event this information is protected by the Federal Confidentiality of Alcohol and Drug Abuse Patient Records regulations: The Federal rules restrict any use of the information to criminally investigate or prosecute any alcohol or drug abuse patient.[facility] HospitalIn the event this information is protected by the Federal Confidentiality of Alcohol and Drug Abuse Patient Records regulations: The Federal rules restrict any use of the information to criminally investigate or prosecute any alcohol or drug abuse patient.[facility] HospitalIn the event this information is protected by the Federal Confidentiality of Alcohol and Drug Abuse Patient Records regulations: The Federal rules restrict any use of the information to criminally investigate or prosecute any alcohol or drug abuse patient.[facility] HospitalIn the event this information is protected by the Federal Confidentiality of Alcohol and Drug Abuse Patient Records regulations: The Federal rules restrict any use of the information to criminally investigate or prosecute any alcohol or drug abuse patient.[facility] HospitalIn the event this information is protected by the Federal Confidentiality of Alcohol and Drug Abuse Patient Records regulations: The Federal rules restrict any use of the information to criminally investigate or prosecute any alcohol or drug abuse patient.[facility] HospitalIn the event this information is protected by the Federal Confidentiality of Alcohol and Drug Abuse Patient Records regulations: The Federal rules restrict any use of the information to criminally investigate or prosecute any alcohol or drug abuse patient.[facility] HospitalIn the event this information is protected by the Federal Confidentiality of Alcohol and Drug Abuse Patient Records regulations: The Federal rules restrict any use of the information to criminally investigate or prosecute any alcohol or drug abuse patient.[facility] HospitalIn the event this information is protected by the Federal Confidentiality of Alcohol and Drug Abuse Patient Records regulations: The Federal rules restrict any use of the information to criminally investigate or prosecute any alcohol or drug abuse patient.[facility] HospitalIn the event this information is protected by the Federal Confidentiality of Alcohol and Drug Abuse Patient Records regulations: The Federal rules restrict any use of the information to criminally investigate or prosecute any alcohol or drug abuse patient.[facility] HospitalIn the event this information is protected by the Federal Confidentiality of Alcohol and Drug Abuse Patient Records regulations: The Federal rules restrict any use of the information to criminally investigate or prosecute any alcohol or drug abuse patient.[facility] HospitalIn the event this information is protected by the Federal Confidentiality of Alcohol and Drug Abuse Patient Records regulations: The Federal rules restrict any use of the information to criminally investigate or prosecute any alcohol or drug abuse patient.[facility] HospitalIn the event this information is protected by the Federal Confidentiality of Alcohol and Drug Abuse Patient Records regulations: The Federal rules restrict any use of the information to criminally investigate or prosecute any alcohol or drug abuse patient.[facility] HospitalIn the event this information is protected by the Federal Confidentiality of Alcohol and Drug Abuse Patient Records regulations: The Federal rules restrict any use of the information to criminally investigate or prosecute any alcohol or drug abuse patient.[facility] HospitalIn the event this information is protected by the Federal Confidentiality of Alcohol and Drug Abuse Patient Records regulations: The Federal rules restrict any use of the information to criminally investigate or prosecute any alcohol or drug abuse patient.[facility] HospitalIn the event this information is protected by the Federal Confidentiality of Alcohol and Drug Abuse Patient Records regulations: The Federal rules restrict any use of the information to criminally investigate or prosecute any alcohol or drug abuse patient.[facility] HospitalIn the event this information is protected by the Federal Confidentiality of Alcohol and Drug Abuse Patient Records regulations: The Federal rules restrict any use of the information to criminally investigate or prosecute any alcohol or drug abuse patient.[facility] HospitalIn the event this information is protected by the Federal Confidentiality of Alcohol and Drug Abuse Patient Records regulations: The Federal rules restrict any use of the information to criminally investigate or prosecute any alcohol or drug abuse patient.[facility] HospitalIn the event this information is protected by the Federal Confidentiality of Alcohol and Drug Abuse Patient Records regulations: The Federal rules restrict any use of the information to criminally investigate or prosecute any alcohol or drug abuse patient.[facility] HospitalIn the event this information is protected by the Federal Confidentiality of Alcohol and Drug Abuse Patient Records regulations: The Federal rules restrict any use of the information to criminally investigate or prosecute any alcohol or drug abuse patient.[facility] HospitalIn the event this information is protected by the Federal Confidentiality of Alcohol and Drug Abuse Patient Records regulations: The Federal rules restrict any use of the information to criminally investigate or prosecute any alcohol or drug abuse patient.[facility] HospitalIn the event this information is protected by the Federal Confidentiality of Alcohol and Drug Abuse Patient Records regulations: The Federal rules restrict any use of the information to criminally investigate or prosecute any alcohol or drug abuse patient.[facility] HospitalIn the event this information is protected by the Federal Confidentiality of Alcohol and Drug Abuse Patient Records regulations: The Federal rules restrict any use of the information to criminally investigate or prosecute any alcohol or drug abuse patient.[facility] HospitalIn the event this information is protected by the Federal Confidentiality of Alcohol and Drug Abuse Patient Records regulations: The Federal rules restrict any use of the information to criminally investigate or prosecute any alcohol or drug abuse patient.[facility] HospitalIn the event this information is protected by the Federal Confidentiality of Alcohol and Drug Abuse Patient Records regulations: The Federal rules restrict any use of the information to criminally investigate or prosecute any alcohol or drug abuse patient.[facility] HospitalIn the event this information is protected by the Federal Confidentiality of Alcohol and Drug Abuse Patient Records regulations: The Federal rules restrict any use of the information to criminally investigate or prosecute any alcohol or drug abuse patient.[facility] HospitalIn the event this information is protected by the Federal Confidentiality of Alcohol and Drug Abuse Patient Records regulations: The Federal rules restrict any use of the information to criminally investigate or prosecute any alcohol or drug abuse patient.[facility] HospitalIn the event this information is protected by the Federal Confidentiality of Alcohol and Drug Abuse Patient Records regulations: The Federal rules restrict any use of the information to criminally investigate or prosecute any alcohol or drug abuse patient.[facility] HospitalIn the event this information is protected by the Federal Confidentiality of Alcohol and Drug Abuse Patient Records regulations: The Federal rules restrict any use of the information to criminally investigate or prosecute any alcohol or drug abuse patient.[facility] HospitalIn the event this information is protected by the Federal Confidentiality of Alcohol and Drug Abuse Patient Records regulations: The Federal rules restrict any use of the information to criminally investigate or prosecute any alcohol or drug abuse patient.[facility] HospitalIn the event this information is protected by the Federal Confidentiality of Alcohol and Drug Abuse Patient Records regulations: The Federal rules restrict any use of the information to criminally investigate or prosecute any alcohol or drug abuse patient.[facility] HospitalIn the event this information is protected by the Federal Confidentiality of Alcohol and Drug Abuse Patient Records regulations: The Federal rules restrict any use of the information to criminally investigate or prosecute any alcohol or drug abuse patient.[facility] HospitalIn the event this information is protected by the Federal Confidentiality of Alcohol and Drug Abuse Patient Records regulations: The Federal rules restrict any use of the information to criminally investigate or prosecute any alcohol or drug abuse patient.[facility] HospitalIn the event this information is protected by the Federal Confidentiality of Alcohol and Drug Abuse Patient Records regulations: The Federal rules restrict any use of the information to criminally investigate or prosecute any alcohol or drug abuse patient.[facility] HospitalIn the event this information is protected by the Federal Confidentiality of Alcohol and Drug Abuse Patient Records regulations: The Federal rules restrict any use of the information to criminally investigate or prosecute any alcohol or drug abuse patient.[facility] HospitalIn the event this information is protected by the Federal Confidentiality of Alcohol and Drug Abuse Patient Records regulations: The Federal rules restrict any use of the information to criminally investigate or prosecute any alcohol or drug abuse patient.[facility] HospitalIn the event this information is protected by the Federal Confidentiality of Alcohol and Drug Abuse Patient Records regulations: The Federal rules restrict any use of the information to criminally investigate or prosecute any alcohol or drug abuse patient.[facility] HospitalIn the event this information is protected by the Federal Confidentiality of Alcohol and Drug Abuse Patient Records regulations: The Federal rules restrict any use of the information to criminally investigate or prosecute any alcohol or drug abuse patient.[facility] HospitalIn the event this information is protected by the Federal Confidentiality of Alcohol and Drug Abuse Patient Records regulations: The Federal rules restrict any use of the information to criminally investigate or prosecute any alcohol or drug abuse patient.[facility] HospitalIn the event this information is protected by the Federal Confidentiality of Alcohol and Drug Abuse Patient Records regulations: The Federal rules restrict any use of the information to criminally investigate or prosecute any alcohol or drug abuse patient.[facility] HospitalIn the event this information is protected by the Federal Confidentiality of Alcohol and Drug Abuse Patient Records regulations: The Federal rules restrict any use of the information to criminally investigate or prosecute any alcohol or drug abuse patient.[facility] HospitalIn the event this information is protected by the Federal Confidentiality of Alcohol and Drug Abuse Patient Records regulations: The Federal rules restrict any use of the information to criminally investigate or prosecute any alcohol or drug abuse patient.[facility] HospitalIn the event this information is protected by the Federal Confidentiality of Alcohol and Drug Abuse Patient Records regulations: The Federal rules restrict any use of the information to criminally investigate or prosecute any alcohol or drug abuse patient.[facility] HospitalIn the event this information is protected by the Federal Confidentiality of Alcohol and Drug Abuse Patient Records regulations: The Federal rules restrict any use of the information to criminally investigate or prosecute any alcohol or drug abuse patient.[facility] HospitalIn the event this information is protected by the Federal Confidentiality of Alcohol and Drug Abuse Patient Records regulations: The Federal rules restrict any use of the information to criminally investigate or prosecute any alcohol or drug abuse patient.[facility] HospitalIn the event this information is protected by the Federal Confidentiality of Alcohol and Drug Abuse Patient Records regulations: The Federal rules restrict any use of the information to criminally investigate or prosecute any alcohol or drug abuse patient.[facility] HospitalIn the event this information is protected by the Federal Confidentiality of Alcohol and Drug Abuse Patient Records regulations: The Federal rules restrict any use of the information to criminally investigate or prosecute any alcohol or drug abuse patient.[facility] HospitalIn the event this information is protected by the Federal Confidentiality of Alcohol and Drug Abuse Patient Records regulations: The Federal rules restrict any use of the information to criminally investigate or prosecute any alcohol or drug abuse patient.[facility] HospitalIn the event this information is protected by the Federal Confidentiality of Alcohol and Drug Abuse Patient Records regulations: The Federal rules restrict any use of the information to criminally investigate or prosecute any alcohol or drug abuse patient.[facility] HospitalIn the event this information is protected by the Federal Confidentiality of Alcohol and Drug Abuse Patient Records regulations: The Federal rules restrict any use of the information to criminally investigate or prosecute any alcohol or drug abuse patient.[facility] HospitalIn the event this information is protected by the Federal Confidentiality of Alcohol and Drug Abuse Patient Records regulations: The Federal rules restrict any use of the information to criminally investigate or prosecute any alcohol or drug abuse patient.[facility] HospitalIn the event this information is protected by the Federal Confidentiality of Alcohol and Drug Abuse Patient Records regulations: The Federal rules restrict any use of the information to criminally investigate or prosecute any alcohol or drug abuse patient.[facility] HospitalIn the event this information is protected by the Federal Confidentiality of Alcohol and Drug Abuse Patient Records regulations: The Federal rules restrict any use of the information to criminally investigate or prosecute any alcohol or drug abuse patient.[facility] HospitalIn the event this information is protected by the Federal Confidentiality of Alcohol and Drug Abuse Patient Records regulations: The Federal rules restrict any use of the information to criminally investigate or prosecute any alcohol or drug abuse patient.[facility] HospitalIn the event this information is protected by the Federal Confidentiality of Alcohol and Drug Abuse Patient Records regulations: The Federal rules restrict any use of the information to criminally investigate or prosecute any alcohol or drug abuse patient.[facility] HospitalIn the event this information is protected by the Federal Confidentiality of Alcohol and Drug Abuse Patient Records regulations: The Federal rules restrict any use of the information to criminally investigate or prosecute any alcohol or drug abuse patient.[facility] HospitalIn the event this information is protected by the Federal Confidentiality of Alcohol and Drug Abuse Patient Records regulations: The Federal rules restrict any use of the information to criminally investigate or prosecute any alcohol or drug abuse patient.[facility] HospitalIn the event this information is protected by the Federal Confidentiality of Alcohol and Drug Abuse Patient Records regulations: The Federal rules restrict any use of the information to criminally investigate or prosecute any alcohol or drug abuse patient.[facility] HospitalIn the event this information is protected by the Federal Confidentiality of Alcohol and Drug Abuse Patient Records regulations: The Federal rules restrict any use of the information to criminally investigate or prosecute any alcohol or drug abuse patient.[facility] HospitalIn the event this information is protected by the Federal Confidentiality of Alcohol and Drug Abuse Patient Records regulations: The Federal rules restrict any use of the information to criminally investigate or prosecute any alcohol or drug abuse patient.[facility] HospitalIn the event this information is protected by the Federal Confidentiality of Alcohol and Drug Abuse Patient Records regulations: The Federal rules restrict any use of the information to criminally investigate or prosecute any alcohol or drug abuse patient.[facility] HospitalIn the event this information is protected by the Federal Confidentiality of Alcohol and Drug Abuse Patient Records regulations: The Federal rules restrict any use of the information to criminally investigate or prosecute any alcohol or drug abuse patient.[facility] HospitalIn the event this information is protected by the Federal Confidentiality of Alcohol and Drug Abuse Patient Records regulations: The Federal rules restrict any use of the information to criminally investigate or prosecute any alcohol or drug abuse patient.[facility] HospitalIn the event this information is protected by the Federal Confidentiality of Alcohol and Drug Abuse Patient Records regulations: The Federal rules restrict any use of the information to criminally investigate or prosecute any alcohol or drug abuse patient.[facility] HospitalIn the event this information is protected by the Federal Confidentiality of Alcohol and Drug Abuse Patient Records regulations: The Federal rules restrict any use of the information to criminally investigate or prosecute any alcohol or drug abuse patient.[facility] HospitalIn the event this information is protected by the Federal Confidentiality of Alcohol and Drug Abuse Patient Records regulations: The Federal rules restrict any use of the information to criminally investigate or prosecute any alcohol or drug abuse patient.[facility] HospitalIn the event this information is protected by the Federal Confidentiality of Alcohol and Drug Abuse Patient Records regulations: The Federal rules restrict any use of the information to criminally investigate or prosecute any alcohol or drug abuse patient.[facility] HospitalIn the event this information is protected by the Federal Confidentiality of Alcohol and Drug Abuse Patient Records regulations: The Federal rules restrict any use of the information to criminally investigate or prosecute any alcohol or drug abuse patient.[facility] HospitalIn the event this information is protected by the Federal Confidentiality of Alcohol and Drug Abuse Patient Records regulations: The Federal rules restrict any use of the information to criminally investigate or prosecute any alcohol or drug abuse patient.[facility] HospitalIn the event this information is protected by the Federal Confidentiality of Alcohol and Drug Abuse Patient Records regulations: The Federal rules restrict any use of the information to criminally investigate or prosecute any alcohol or drug abuse patient.[facility] HospitalIn the event this information is protected by the Federal Confidentiality of Alcohol and Drug Abuse Patient Records regulations: The Federal rules restrict any use of the information to criminally investigate or prosecute any alcohol or drug abuse patient.[facility] HospitalIn the event this information is protected by the Federal Confidentiality of Alcohol and Drug Abuse Patient Records regulations: The Federal rules restrict any use of the information to criminally investigate or prosecute any alcohol or drug abuse patient.[facility] HospitalIn the event this information is protected by the Federal Confidentiality of Alcohol and Drug Abuse Patient Records regulations: The Federal rules restrict any use of the information to criminally investigate or prosecute any alcohol or drug abuse patient.[facility] HospitalIn the event this information is protected by the Federal Confidentiality of Alcohol and Drug Abuse Patient Records regulations: The Federal rules restrict any use of the information to criminally investigate or prosecute any alcohol or drug abuse patient.[facility] HospitalIn the event this information is protected by the Federal Confidentiality of Alcohol and Drug Abuse Patient Records regulations: The Federal rules restrict any use of the information to criminally investigate or prosecute any alcohol or drug abuse patient.[facility] HospitalIn the event this information is protected by the Federal Confidentiality of Alcohol and Drug Abuse Patient Records regulations: The Federal rules restrict any use of the information to criminally investigate or prosecute any alcohol or drug abuse patient.[facility] HospitalIn the event this information is protected by the Federal Confidentiality of Alcohol and Drug Abuse Patient Records regulations: The Federal rules restrict any use of the information to criminally investigate or prosecute any alcohol or drug abuse patient.[facility] HospitalIn the event this information is protected by the Federal Confidentiality of Alcohol and Drug Abuse Patient Records regulations: The Federal rules restrict any use of the information to criminally investigate or prosecute any alcohol or drug abuse patient.[facility] HospitalIn the event this information is protected by the Federal Confidentiality of Alcohol and Drug Abuse Patient Records regulations: The Federal rules restrict any use of the information to criminally investigate or prosecute any alcohol or drug abuse patient.[facility] HospitalIn the event this information is protected by the Federal Confidentiality of Alcohol and Drug Abuse Patient Records regulations: The Federal rules restrict any use of the information to criminally investigate or prosecute any alcohol or drug abuse patient.[facility] HospitalIn the event this information is protected by the Federal Confidentiality of Alcohol and Drug Abuse Patient Records regulations: The Federal rules restrict any use of the information to criminally investigate or prosecute any alcohol or drug abuse patient.[facility] HospitalIn the event this information is protected by the Federal Confidentiality of Alcohol and Drug Abuse Patient Records regulations: The Federal rules restrict any use of the information to criminally investigate or prosecute any alcohol or drug abuse patient.[facility] HospitalIn the event this information is protected by the Federal Confidentiality of Alcohol and Drug Abuse Patient Records regulations: The Federal rules restrict any use of the information to criminally investigate or prosecute any alcohol or drug abuse patient.[facility] HospitalIn the event this information is protected by the Federal Confidentiality of Alcohol and Drug Abuse Patient Records regulations: The Federal rules restrict any use of the information to criminally investigate or prosecute any alcohol or drug abuse patient.[facility] HospitalIn the event this information is protected by the Federal Confidentiality of Alcohol and Drug Abuse Patient Records regulations: The Federal rules restrict any use of the information to criminally investigate or prosecute any alcohol or drug abuse patient.[facility] HospitalIn the event this information is protected by the Federal Confidentiality of Alcohol and Drug Abuse Patient Records regulations: The Federal rules restrict any use of the information to criminally investigate or prosecute any alcohol or drug abuse patient.[facility] HospitalIn the event this information is protected by the Federal Confidentiality of Alcohol and Drug Abuse Patient Records regulations: The Federal rules restrict any use of the information to criminally investigate or prosecute any alcohol or drug abuse patient.[facility] HospitalIn the event this information is protected by the Federal Confidentiality of Alcohol and Drug Abuse Patient Records regulations: The Federal rules restrict any use of the information to criminally investigate or prosecute any alcohol or drug abuse patient.[facility] HospitalIn the event this information is protected by the Federal Confidentiality of Alcohol and Drug Abuse Patient Records regulations: The Federal rules restrict any use of the information to criminally investigate or prosecute any alcohol or drug abuse patient.[facility] HospitalIn the event this information is protected by the Federal Confidentiality of Alcohol and Drug Abuse Patient Records regulations: The Federal rules restrict any use of the information to criminally investigate or prosecute any alcohol or drug abuse patient.[facility] HospitalIn the event this information is protected by the Federal Confidentiality of Alcohol and Drug Abuse Patient Records regulations: The Federal rules restrict any use of the information to criminally investigate or prosecute any alcohol or drug abuse patient.[facility] HospitalIn the event this information is protected by the Federal Confidentiality of Alcohol and Drug Abuse Patient Records regulations: The Federal rules restrict any use of the information to criminally investigate or prosecute any alcohol or drug abuse patient.[facility] HospitalIn the event this information is protected by the Federal Confidentiality of Alcohol and Drug Abuse Patient Records regulations: The Federal rules restrict any use of the information to criminally investigate or prosecute any alcohol or drug abuse patient.[facility] HospitalIn the event this information is protected by the Federal Confidentiality of Alcohol and Drug Abuse Patient Records regulations: The Federal rules restrict any use of the information to criminally investigate or prosecute any alcohol or drug abuse patient.[facility] HospitalIn the event this information is protected by the Federal Confidentiality of Alcohol and Drug Abuse Patient Records regulations: The Federal rules restrict any use of the information to criminally investigate or prosecute any alcohol or drug abuse patient.[facility] HospitalIn the event this information is protected by the Federal Confidentiality of Alcohol and Drug Abuse Patient Records regulations: The Federal rules restrict any use of the information to criminally investigate or prosecute any alcohol or drug abuse patient.[facility] HospitalIn the event this information is protected by the Federal Confidentiality of Alcohol and Drug Abuse Patient Records regulations: The Federal rules restrict any use of the information to criminally investigate or prosecute any alcohol or drug abuse patient.[facility] HospitalIn the event this information is protected by the Federal Confidentiality of Alcohol and Drug Abuse Patient Records regulations: The Federal rules restrict any use of the information to criminally investigate or prosecute any alcohol or drug abuse patient.[facility] HospitalIn the event this information is protected by the Federal Confidentiality of Alcohol and Drug Abuse Patient Records regulations: The Federal rules restrict any use of the information to criminally investigate or prosecute any alcohol or drug abuse patient.[facility] HospitalIn the event this information is protected by the Federal Confidentiality of Alcohol and Drug Abuse Patient Records regulations: The Federal rules restrict any use of the information to criminally investigate or prosecute any alcohol or drug abuse patient.[facility] HospitalIn the event this information is protected by the Federal Confidentiality of Alcohol and Drug Abuse Patient Records regulations: The Federal rules restrict any use of the information to criminally investigate or prosecute any alcohol or drug abuse patient.[facility] HospitalIn the event this information is protected by the Federal Confidentiality of Alcohol and Drug Abuse Patient Records regulations: The Federal rules restrict any use of the information to criminally investigate or prosecute any alcohol or drug abuse patient.[facility] HospitalIn the event this information is protected by the Federal Confidentiality of Alcohol and Drug Abuse Patient Records regulations: The Federal rules restrict any use of the information to criminally investigate or prosecute any alcohol or drug abuse patient.[facility] HospitalIn the event this information is protected by the Federal Confidentiality of Alcohol and Drug Abuse Patient Records regulations: The Federal rules restrict any use of the information to criminally investigate or prosecute any alcohol or drug abuse patient.[facility] HospitalIn the event this information is protected by the Federal Confidentiality of Alcohol and Drug Abuse Patient Records regulations: The Federal rules restrict any use of the information to criminally investigate or prosecute any alcohol or drug abuse patient.[facility] HospitalIn the event this information is protected by the Federal Confidentiality of Alcohol and Drug Abuse Patient Records regulations: The Federal rules restrict any use of the information to criminally investigate or prosecute any alcohol or drug abuse patient.[facility] HospitalIn the event this information is protected by the Federal Confidentiality of Alcohol and Drug Abuse Patient Records regulations: The Federal rules restrict any use of the information to criminally investigate or prosecute any alcohol or drug abuse patient.[facility] HospitalIn the event this information is protected by the Federal Confidentiality of Alcohol and Drug Abuse Patient Records regulations: The Federal rules restrict any use of the information to criminally investigate or prosecute any alcohol or drug abuse patient.[facility] HospitalIn the event this information is protected by the Federal Confidentiality of Alcohol and Drug Abuse Patient Records regulations: The Federal rules restrict any use of the information to criminally investigate or prosecute any alcohol or drug abuse patient.[facility] HospitalIn the event this information is protected by the Federal Confidentiality of Alcohol and Drug Abuse Patient Records regulations: The Federal rules restrict any use of the information to criminally investigate or prosecute any alcohol or drug abuse patient.[facility] HospitalIn the event this information is protected by the Federal Confidentiality of Alcohol and Drug Abuse Patient Records regulations: The Federal rules restrict any use of the information to criminally investigate or prosecute any alcohol or drug abuse patient.[facility] HospitalIn the event this information is protected by the Federal Confidentiality of Alcohol and Drug Abuse Patient Records regulations: The Federal rules restrict any use of the information to criminally investigate or prosecute any alcohol or drug abuse patient.[facility] HospitalIn the event this information is protected by the Federal Confidentiality of Alcohol and Drug Abuse Patient Records regulations: The Federal rules restrict any use of the information to criminally investigate or prosecute any alcohol or drug abuse patient.[facility] HospitalIn the event this information is protected by the Federal Confidentiality of Alcohol and Drug Abuse Patient Records regulations: The Federal rules restrict any use of the information to criminally investigate or prosecute any alcohol or drug abuse patient.[facility] HospitalIn the event this information is protected by the Federal Confidentiality of Alcohol and Drug Abuse Patient Records regulations: The Federal rules restrict any use of the information to criminally investigate or prosecute any alcohol or drug abuse patient.[facility] HospitalIn the event this information is protected by the Federal Confidentiality of Alcohol and Drug Abuse Patient Records regulations: The Federal rules restrict any use of the information to criminally investigate or prosecute any alcohol or drug abuse patient.[facility] HospitalIn the event this information is protected by the Federal Confidentiality of Alcohol and Drug Abuse Patient Records regulations: The Federal rules restrict any use of the information to criminally investigate or prosecute any alcohol or drug abuse patient.[facility] HospitalIn the event this information is protected by the Federal Confidentiality of Alcohol and Drug Abuse Patient Records regulations: The Federal rules restrict any use of the information to criminally investigate or prosecute any alcohol or drug abuse patient.[facility] HospitalIn the event this information is protected by the Federal Confidentiality of Alcohol and Drug Abuse Patient Records regulations: The Federal rules restrict any use of the information to criminally investigate or prosecute any alcohol or drug abuse patient.[facility] HospitalIn the event this information is protected by the Federal Confidentiality of Alcohol and Drug Abuse Patient Records regulations: The Federal rules restrict any use of the information to criminally investigate or prosecute any alcohol or drug abuse patient.[facility] HospitalIn the event this information is protected by the Federal Confidentiality of Alcohol and Drug Abuse Patient Records regulations: The Federal rules restrict any use of the information to criminally investigate or prosecute any alcohol or drug abuse patient.[facility] HospitalIn the event this information is protected by the Federal Confidentiality of Alcohol and Drug Abuse Patient Records regulations: The Federal rules restrict any use of the information to criminally investigate or prosecute any alcohol or drug abuse patient.[facility] HospitalIn the event this information is protected by the Federal Confidentiality of Alcohol and Drug Abuse Patient Records regulations: The Federal rules restrict any use of the information to criminally investigate or prosecute any alcohol or drug abuse patient.[facility] HospitalIn the event this information is protected by the Federal Confidentiality of Alcohol and Drug Abuse Patient Records regulations: The Federal rules restrict any use of the information to criminally investigate or prosecute any alcohol or drug abuse patient.[facility] HospitalIn the event this information is protected by the Federal Confidentiality of Alcohol and Drug Abuse Patient Records regulations: The Federal rules restrict any use of the information to criminally investigate or prosecute any alcohol or drug abuse patient.[facility] HospitalIn the event this information is protected by the Federal Confidentiality of Alcohol and Drug Abuse Patient Records regulations: The Federal rules restrict any use of the information to criminally investigate or prosecute any alcohol or drug abuse patient.[facility] HospitalIn the event this information is protected by the Federal Confidentiality of Alcohol and Drug Abuse Patient Records regulations: The Federal rules restrict any use of the information to criminally investigate or prosecute any alcohol or drug abuse patient.[facility] HospitalIn the event this information is protected by the Federal Confidentiality of Alcohol and Drug Abuse Patient Records regulations: The Federal rules restrict any use of the information to criminally investigate or prosecute any alcohol or drug abuse patient.[facility] HospitalIn the event this information is protected by the Federal Confidentiality of Alcohol and Drug Abuse Patient Records regulations: The Federal rules restrict any use of the information to criminally investigate or prosecute any alcohol or drug abuse patient.[facility] HospitalIn the event this information is protected by the Federal Confidentiality of Alcohol and Drug Abuse Patient Records regulations: The Federal rules restrict any use of the information to criminally investigate or prosecute any alcohol or drug abuse patient.[facility] HospitalIn the event this information is protected by the Federal Confidentiality of Alcohol and Drug Abuse Patient Records regulations: The Federal rules restrict any use of the information to criminally investigate or prosecute any alcohol or drug abuse patient.[facility] HospitalIn the event this information is protected by the Federal Confidentiality of Alcohol and Drug Abuse Patient Records regulations: The Federal rules restrict any use of the information to criminally investigate or prosecute any alcohol or drug abuse patient.[facility] HospitalIn the event this information is protected by the Federal Confidentiality of Alcohol and Drug Abuse Patient Records regulations: The Federal rules restrict any use of the information to criminally investigate or prosecute any alcohol or drug abuse patient.[facility] HospitalIn the event this information is protected by the Federal Confidentiality of Alcohol and Drug Abuse Patient Records regulations: The Federal rules restrict any use of the information to criminally investigate or prosecute any alcohol or drug abuse patient.[facility] HospitalIn the event this information is protected by the Federal Confidentiality of Alcohol and Drug Abuse Patient Records regulations: The Federal rules restrict any use of the information to criminally investigate or prosecute any alcohol or drug abuse patient.[facility] HospitalIn the event this information is protected by the Federal Confidentiality of Alcohol and Drug Abuse Patient Records regulations: The Federal rules restrict any use of the information to criminally investigate or prosecute any alcohol or drug abuse patient.[facility] HospitalIn the event this information is protected by the Federal Confidentiality of Alcohol and Drug Abuse Patient Records regulations: The Federal rules restrict any use of the information to criminally investigate or prosecute any alcohol or drug abuse patient.[facility] HospitalIn the event this information is protected by the Federal Confidentiality of Alcohol and Drug Abuse Patient Records regulations: The Federal rules restrict any use of the information to criminally investigate or prosecute any alcohol or drug abuse patient.[facility] HospitalIn the event this information is protected by the Federal Confidentiality of Alcohol and Drug Abuse Patient Records regulations: The Federal rules restrict any use of the information to criminally investigate or prosecute any alcohol or drug abuse patient.[facility] HospitalIn the event this information is protected by the Federal Confidentiality of Alcohol and Drug Abuse Patient Records regulations: The Federal rules restrict any use of the information to criminally investigate or prosecute any alcohol or drug abuse patient.[facility] HospitalIn the event this information is protected by the Federal Confidentiality of Alcohol and Drug Abuse Patient Records regulations: The Federal rules restrict any use of the information to criminally investigate or prosecute any alcohol or drug abuse patient.[facility] HospitalIn the event this information is protected by the Federal Confidentiality of Alcohol and Drug Abuse Patient Records regulations: The Federal rules restrict any use of the information to criminally investigate or prosecute any alcohol or drug abuse patient.[facility] HospitalIn the event this information is protected by the Federal Confidentiality of Alcohol and Drug Abuse Patient Records regulations: The Federal rules restrict any use of the information to criminally investigate or prosecute any alcohol or drug abuse patient.[facility] HospitalIn the event this information is protected by the Federal Confidentiality of Alcohol and Drug Abuse Patient Records regulations: The Federal rules restrict any use of the information to criminally investigate or prosecute any alcohol or drug abuse patient.[facility] Reason for Visit (unrecogniz ed section and content) Reason Comments Occupational Therapy OT Progress Note Specialty Diagnoses / Procedures Referred By Contac t Referred To Contact OCCUPATIONAL THERAPY Diagnoses Blindness right eye category 3, blindness left eye category 4 Procedures CONSULT TO [facility]ENNEL STAFF MEMBER OCCUPATIONAL THERAPY EVAL HIGH COMPLEX 60 MINS Wolf Mason, OD [address] [place] [address] Michelle Perez, OT/L Referral ID Status Reason Start Date Expiration Date Visits Requested Visits Authorized [id number] Authorized Auto-Generat ed Referral 09/02/2022 09/01/2023 20 [...] IRIS AND CILIARY BODY [facility] [address] [address] Referral ID Status Reason Start Date Expiration Date Visits Re quested Visits Authorized [id number] 1 1 Reason Comments Post-op (Ophthalmology) Right Eye CE/IOL right eye 06/25/22 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 Reason Comments Cough Reason [...] VISION Wolf Mason, OD [address] [place] [address] Michelle Perez, OT/L Referral ID Status Reason Start Date Expiration Date Visits Re quested Visits Authorized [id number] Closed 09/19/2022 12/18/2022 1 1 Reason Comments Follow Up Phone Call Reason Comments Orders Reason Comments Schedule Surgery Reason Comments Medication Request Reason Comments Mammogram Result Call Back Reason Comments Tearing Left Eye Specialty Diagnoses / Procedures Referred By Shiraz johnson Referred To Contact Ophthalmology / OPHTHALMOLOGY Diagnoses Follow-up exam 3 month VaTa (r/s 6 wk after cataract surgery [facility] Dr. Eugene) Procedures EST ADULT Self Cynthia Ramos MD [address] [place] [address] Referral ID Status Reason Start Date Expiration Date Visits Re quested Visits Authorized [id number] Closed 09/25/2022 12/24/2022 1 1 Reason Comments Physical preop clearance for surgeries on 11/07/22, 11/15/22 Reason Comments Occupational Therapy Reason Comments Established Patient Pain Specialty Diagnoses / Procedures Referred By Contact Referred To Contact [facility] Diagnoses Hand pain Procedures HAND PAIN Self [facility] [address] [place] [address] Referral ID Status Reason Start Date Expiration Date V isits Requested Visits Authorized [id number] Closed OON/Self Pay Override 09/11/2022 09/01/2023 1 [...] REAL TIME WITH IMAGE LIMITED Destiney Pendleton APRN.DEBORAH [address] [place] [address] [facility] [address] [place] [address] Referral ID Status Reason Start Date Expiration Date V isits Requested Visits Authorized [id number] Closed Auto-Generate d Referral 09/28/2022 10/28/2023 1 1 Specialty Diagnoses / Procedures Referred By Shiraz johnson Referred To Contact [facility] Diagnoses Encounter for screening mammogram for high-risk patient Procedures mamograms screening Ifeoma Davis MD [address] [place] [address] [facility] [address] [place] [address] Referral ID Status Reason Start Date Expiration Date V isits Requested Visits Authorized [id number] Closed OON/Self Pay Override 09/11/2022 09/01/2023 1 1 Reason Onset Date Comments Refill Request 07/23/2023 Reason Comments Glaucoma Follow Up 6 month HVF 24-2 OU & MAC OCT Reason Onset Date Comments [facility] Navigation Outreach 10/04/2023 [facility] Gaps Reason Onset Date Comments [facility] Navigation Outreach 10/25/2023 [facility] Reason Onset Date Comments Refill Request [...] Reason Comments Letter Reason Onset Date Comments [facility] Navigation Outreach 05/29/2024 Med adherence Reason Comments F/U 6 months needs some home heal th care due to vision loss Reason Onset Date Comments [facility] Navigation Outreach 06/12/2024 Bradly Javier PCSA Reason Onset Date Comments [facility] Navigation Outreach 06/15/2024 Med Adherence Reason Comments Patient Question Reason Onset Date Comments Refill Request 06/29/2024 Reason Comments Headache TINOCO, bodyaches, fatig ue x 3 days Reason Comments Orders Reason Comments Fax Request Reason Comments Results Reason Onset Date Comments [facility] Navigation Outreach 08/10/2024 Bradly Javier PCSA [...] Reason Comments Recheck 10/31/24 UA done at [facility], always tired Reason Comments Recheck 2 week follow up Reason Comments Results, Lab Reason Onset Date Comments Results 12/17/2024 Reason Onset Date Comments Refill Request 12/23/2024 Reason Comments Recheck 6 week follow up Reason Comments Procedure Specialty Diagnoses / Procedures Referred By Contac t Referred To Contact SLEEP DISORDERS Diagnoses Snoring Other hypersomnia Other sleep disorders Periodic limb movement disorder Essential (primary) hypertension Snoring [R06.83]; Excessive daytime sleepiness [G47.19]; Non-restorative sleep [G47.8]; PLMD (periodic limb movement disorder) [G47.61]; Primary hypertension [I10] Procedures POLYSOM 6/>YRS SLEEP 4/> ADDL BRIDGET ATTND POLYSOMNOGRAM Kimberley Byrd APRN.LINEN SORTER [address] [place] [address] Phone: tel: fax: [facility] [address] [place] [address] Phone: tel: fax: Referral ID Status Reason Start Date Expiration Date Visits Re quested Visits Authorized [id number] Closed 11/04/2024 09/01/2025 1 1 Reason Comments [...] Care Teams (unrecognized sec tion and content) Sql Developer Relationship Specialty Start Date End Date Ifeoma Davis MD [address] [place] [address] PCP - General Internal Medicine 12/07/14 Sql Developer Relationship Specialty Start Date End Date Ifeoma Davis MD [address] [place] [address] PCP - General Internal Medicine 12/07/14 Sql Developer Relationship Specialty Start Date End Date Ifeoma Davis MD [address] [facility] [address] PCP - General Internal Medicine 12/07/14 Sql Developer Relationship Specialty Start Date End Date Ifeoma Davis MD [address] [facility] [address] PCP - General Internal Medicine 12/07/14 Sql Developer Relationship Specialty Start Date End Date Ifeoma Davis MD [address] [facility] [address] PCP - General Internal Medicine 12/07/14 Sql Developer Relationship Specialty Start Date End Date Ifeoma Davis MD [address] [facility] [address] PCP - General Internal Medicine 12/07/14 Sql Developer Relationship Specialty Start Date End Date Ifeoma Davis MD [address] [facility] [address] PCP - General Internal Medicine 12/07/14 Sql Developer Relationship Specialty Start Date End Date Ifeoma Davis MD [address] [facility] [address] PCP - General Internal Medicine 12/07/14 Sql Developer Relationship Specialty Start Date End Date Ifeoma Davis MD [address] [place] [address] PCP - General Internal Medicine 12/07/14 Sql Developer Relationship Specialty Start Date End Date Ifeoma Davis MD [address] [place] [address] PCP - General Internal Medicine 12/07/14 Sql Developer Relationship Specialty Start Date End Date Ifeoma Davis MD [address] [place] [address] PCP - General Internal Medicine 12/07/14 Sql Developer Relationship Specialty Start Date End Date Ifeoma Davis MD [address] [facility] [address] PCP - General Internal Medicine 12/07/14 Sql Developer Relationship Specialty Start Date End Date Ifeoma Davis MD [address] [facility] [address] PCP - General Internal Medicine 12/07/14 Sql Developer Relationship Specialty Start Date End Date Ifeoma Davis MD [address] [facility] [address] PCP - General Internal Medicine 12/07/14 Sql Developer Relationship Specialty Start Date End Date Ifeoma Davis MD [address] [facility] [place] [address] PCP - General Internal Medicine 12/07/14 Sql Developer Relationship Specialty Start Date End Date Ifeoma Davis MD [address] [place] [address] PCP - General Internal Medicine 12/07/14 Sql Developer Relationship Specialty Start Date End Date Ifeoma Davis MD [address] [place] [address] PCP - General Internal Medicine 12/07/14 Sql Developer Relationship Specialty Start Date End Date Ifeoma Davis MD [address] [facility] [address] PCP - General Internal Medicine 12/07/14 Sql Developer Relationship Specialty Start Date End Date Ifeoma Davis MD [address] [place] [address] PCP - General Internal Medicine 12/07/14 Sql Developer Relationship Specialty Start Date End Date Ifeoma Davis MD [address] [place] [address] PCP - General Internal Medicine 12/07/14 Sql Developer Relationship Specialty Start Date End Date Ifeoma Davis MD [address] [place] [address] PCP - General Internal Medicine 12/07/14 Sql Developer Relationship Specialty Start Date End Date Ifeoma Davis MD [address] [place] [address] PCP - General Internal Medicine 12/07/14 Sql Developer Relationship Specialty Start Date End Date Ifeoma Davis MD [address] [facility] [address] PCP - General Internal Medicine 12/07/14 Sql Developer Relationship Specialty Start Date End Date Ifeoma Davis MD [address] [facility] [address] PCP - General Internal Medicine 12/07/14 Sql Developer Relationship Specialty Start Date End Date Ifeoma Davis MD [address] [facility] [address] PCP - General Internal Medicine 12/07/14 Sql Developer Relationship Specialty Start Date End Date Ifeoma Davis MD [address] [facility] [address] PCP - General Internal Medicine 12/07/14 Sql Developer Relationship Specialty Start Date End Date Ifeoma Davis MD [address] [place] [address] PCP - General Internal Medicine 12/07/14 Sql Developer Relationship Specialty Start Date End Date Ifeoma Davis MD [address] [place] [address] PCP - General Internal Medicine 12/07/14 Sql Developer Relationship Specialty Start Date End Date Ifeoma Davis MD [address] [place] [address] PCP - General Internal Medicine 12/07/14 Sql Developer Relationship Specialty Start Date End Date Ifeoma Davis MD [address] [place] [address] PCP - General Internal Medicine 12/07/14 Sql Developer Relationship Specialty Start Date End Date Ifeoma Davis MD [address] [place] [address] PCP - General Internal Medicine 12/07/14 Sql Developer Relationship Specialty Start Date End Date Ifeoma Davis MD [address] [place] [address] PCP - General Internal Medicine 12/07/14 Sql Developer Relationship Specialty Start Date End Date Ifeoma Davis MD [address] [place] [address] PCP - General Internal Medicine 12/07/14 Sql Developer Relationship Specialty Start Date End Date Ifeoma Davis MD [address] [place] [address] PCP - General Internal Medicine 12/07/14 Sql Developer Relationship Specialty Start Date End Date Ifeoma Davis MD [address] [facility] [address] PCP - General Internal Medicine 12/07/14 Sql Developer Relationship Specialty Start Date End Date Ifeoma Davis MD [address] [place] [address] PCP - General Internal Medicine 12/07/14 Team Status: Active Member Role Status Dates Dr. Ifeoma Davis MD Family Provider Active Dr. Ifeoma Davis MD Primary Care Provider Active Team Status: Inactive Member Role Status Dates Dr. Ifeoma Davis MD Primary Care Provider Active CAREY VALLE Attending Provider, Referring Provide r Active Sql Developer Relationship Specialty Start Date End Date Ifeoma Davis MD [address] [place] [address] PCP - General Internal Medicine 12/07/14 Sql Developer Relationship Specialty Start Date End Date Ifeoma Davis MD [address] [place] [address] PCP - General Internal Medicine 12/07/14 Sql Developer Relationship Specialty Start Date End Date Ifeoma Davis MD [address] [place] [address] PCP - General Internal Medicine 12/07/14 Sql Developer Relationship Specialty Start Date End Date Ifeoma Davis MD [address] [place] [address] PCP - General Internal Medicine 12/07/14 Sql Developer Relationship Specialty Start Date End Date Ifeoma Davis MD [address] [place] [address] PCP - General Internal Medicine 12/07/14 Sql Developer Relationship Specialty Start Date End Date Ifeoma Davis MD [address] [place] [address] PCP - General Internal Medicine 12/07/14 Sql Developer Relationship Specialty Start Date End Date Ifeoma Davis MD [address] [place] [address] PCP - General Internal Medicine 12/07/14 Sql Developer Relationship Specialty Start Date End Date Ifeoma Davis MD [address] [place] [address] PCP - General Internal Medicine 12/07/14 Sql Developer Relationship Specialty Start Date End Date Ifeoma Davis MD [address] [place] [address] PCP - General Internal Medicine 12/07/14 Sql Developer Relationship Specialty Start Date End Date Ifeoma Davis MD [address] [place] [address] PCP - General Internal Medicine 12/07/14 Sql Developer Relationship Specialty Start Date End Date Ifeoma Davis MD [address] [place] [address] PCP - General Internal Medicine 12/07/14 Sql Developer Relationship Specialty Start Date End Date Ifeoma Davis MD [address] [place] [address] PCP - General Internal Medicine 12/07/14 Sql Developer Relationship Specialty Start Date End Date Ifeoma Davis MD [address] [place] [address] PCP - General Internal Medicine 12/07/14 Sql Developer Relationship Specialty Start Date End Date Ifeoma Davis MD [address] [place] [address] PCP - General Internal Medicine 12/07/14 Team [...] Pozo DO Attending Provider, Referring Provider Active Sql Developer Relationship Specialty Start Date End Date Ifeoma Davis MD [address] [facility] [address] PCP - General Internal Medicine 12/07/14 Sql Developer Relationship Specialty Start Date End Date Ifeoma Davis MD [address] [place] [address] PCP - General Internal Medicine 12/07/14 Sql Developer Relationship Specialty Start Date End Date Ifeoma Davis MD [address] [place] [address] PCP - General Internal Medicine 12/07/14 Sql Developer Relationship Specialty Start Date End Date Ifeoma Davis MD [address] [place] [address] PCP - General Internal Medicine 12/07/14 Sql Developer Relationship Specialty Start Date End Date Ifeoma Davis MD [address] [place] [address] PCP - General Internal Medicine 12/07/14 Sql Developer Relationship Specialty Start Date End Date Ifeoma Davis MD [address] [place] [address] PCP - General Internal Medicine 12/07/14 Sql Developer Relationship Specialty Start Date End Date Ifeoma Davis MD [address] [place] [address] PCP - General Internal Medicine 12/07/14 Sql Developer Relationship Specialty Start Date End Date Ifeoma Davis MD [address] [place] [address] PCP - General Internal Medicine 12/07/14 Sql Developer Relationship Specialty Start Date End Date Ifeoma Davis MD [address] [place] [address] PCP - General Internal Medicine 12/07/14 Sql Developer Relationship Specialty Start Date End Date Ifeoma Davis MD [address] [place] [address] PCP - General Internal Medicine 12/07/14 Sql Developer Relationship Specialty Start Date End Date Ifeoma Davis MD [address] [place] [address] PCP - General Internal Medicine 12/07/14 Sql Developer Relationship Specialty Start Date End Date Ifeoma Davis MD [address] [place] [address] PCP - General Internal Medicine 12/07/14 Sql Developer Relationship Specialty Start Date End Date Ifeoma Davis MD [address] [place] [address] PCP - General Internal Medicine 12/07/14 Sql Developer Relationship Specialty Start Date End Date Ifeoma Davis MD [address] [place] [address] PCP - General Internal Medicine 12/07/14 Sql Developer Relationship Specialty Start Date End Date Ifeoma Davis MD [address] [place] [address] PCP - General Internal Medicine 12/07/14 Sql Developer Relationship Specialty Start Date End Date Ifeoma Davis MD [address] [facility] [address] PCP - General Internal Medicine 12/07/14 Virginia Avalos PA-C [address] [place], [place] [id number] [phone] Preventive Medicine Officer Family Medicine 08/09/24 David Anna APRN.LINEN SORTER [address] [place] [address] Preventive Medicine Officer Internal Medicine 08/09/24 Domitila Knapp PA-C [address] [place] [address] Preventive Medicine Officer Family Medicine 08/09/24 Sql Developer Relationship Specialty Start Date End Date Ifeoma Davis MD [address] [place] [address] PCP - General Internal Medicine 12/07/14 Virginia Avalos PA-C [address] [place] [address] Preventive Medicine Officer Family Medicine 08/09/24 David Anna, MENSWEAR SALESPERSON.LINEN SORTER [address] [place] [address] Preventive Medicine Officer Internal Medicine 08/09/24 Domitila Knapp PA-C [address] [place] [address] Preventive Medicine Officer Family Medicine 08/09/24 Sql Developer Relationship Specialty Start Date End Date Ifeoma Davis MD [address] [place] [address] PCP - General Internal Medicine 12/07/14 Virginia Avalos PA-C [address] [place] [address] Preventive Medicine Officer Family Medicine 08/09/24 David Anna APRN.LINEN SORTER [address] [place] [address] Preventive Medicine Officer Internal Medicine 08/09/24 Domitila Knapp PA-C [address] [place] [address] Preventive Medicine Officer Family Medicine 08/09/24 Sql Developer Relationship Specialty Start Date End Date Ifeoma Davis MD [address] [place] [address] PCP - General Internal Medicine 12/07/14 Virginia Avalos PA-C [address] [place] [address] Preventive Medicine Officer Family Medicine 08/09/24 David Anna, MURTAZA.LINEN SORTER [address] [place] [address] Preventive Medicine Officer Internal Medicine 08/09/24 Domitila Knapp PA-C [address] [facility] [address] Preventive Medicine Officer Family Medicine 08/09/24 Sql Developer Relationship Specialty Start Date End Date Ifeoma Dvais MD [address] [place] [address] PCP - General Internal Medicine 12/07/14 Virginia Avalos PA-C [address] [place] [address] Preventive Medicine Officer Family Medicine 08/09/24 David Anna APRN.LINEN SORTER [address] [place] [address] Preventive Medicine Officer Internal Medicine 08/09/24 Domitila Knapp PA-C [address] [place] [address] [facility] 08/09/24 Sql Developer Relationship Specialty Start Date End Date Ifeoma Davis MD [address] [place] [address] PCP - General Internal Medicine 12/07/14 Virginia Avalos PA-C [address] [place] [address] [facility] Medicine 08/09/24 David Anna APRN.LINEN SORTER [address] [place] [address] Preventive Medicine Officer Internal Medicine 08/09/24 Domitila Knapp PA-C [address] [place] [address] [facility] Family Medicine 08/09/24 Sql Developer Relationship Specialty Start Date End Date Ifeoma Davis MD [address] [place] [address] PCP - General Internal Medicine 12/07/14 Virginia Avalos PA-C [address] [place], [place] [id number] [phone] Preventive Medicine Officer Family Medicine 08/09/24 David Anna APRN.LINEN SORTER [address] [place] [address] Preventive Medicine Officer Internal Medicine 08/09/24 Domitila Knapp PA-C [address] [place] [address] Preventive Medicine Officer Family [facility] 08/09/24 Sql Developer Relationship Specialty Start Date End Date Ifeoma Davis MD [address] [place] [address] PCP - General Internal Medicine 12/07/14 Virginia Avalos PA-C [address] [place] [address] Preventive Medicine Officer Family Medicine 08/09/24 David Anna APRN.LINEN SORTER [address] [place] [address] Preventive Medicine Officer Internal Medicine 08/09/24 Domitila Knapp PA-C [address] [place] [address] Preventive Medicine Officer Family [facility] 08/09/24 Sql Developer Relationship Specialty Start Date End Date Ifeoma Davis MD [address] [place] [address] PCP - General Internal Medicine 12/07/14 Virginia Avalos PA-C [address] [place], [place] [phone] Preventive Medicine Officer Family Medicine 08/09/24 David Anna APRN.LINEN SORTER [address] [place] [address] Preventive Medicine Officer Internal Medicine 08/09/24 Domitila Knapp PA-C [address] [place] [address] Preventive Medicine Officer Family Medicine 08/09/24 Sql Developer Relationship Specialty Start Date End Date Ifeoma Davis MD [address] [place] [address] PCP - General Internal Medicine 12/07/14 Virginia Avalos PA-C [address] [place] [address] Preventive Medicine Officer Family Medicine 08/09/24 David Anna APRN.LINEN SORTER [address] [place] [address] Preventive Medicine Officer Internal Medicine 08/09/24 Domitila Knapp PA-C [address] [place] [address] Preventive Medicine Officer Family Medicine 08/09/24 Sql Developer Relationship Specialty Start Date End Date Ifeoma Davis MD [address] [place] [address] PCP - General Internal Medicine 12/07/14 Virginia Avalos PA-C [address] [place] [address] Preventive Medicine Officer Family Medicine 08/09/24 David Anna APRN.LINEN SORTER [address] [place] [address] Preventive Medicine Officer Internal Medicine 08/09/24 Domitila Knapp PA-C [address] [place] [address] Preventive Medicine Officer Family Medicine 08/09/24 Sql Developer Relationship Specialty Start Date End Date Ifeoma Davis MD [address] [place] [address] PCP - General Internal Medicine 12/07/14 Virginia Avalos PA-C [address] [place] [address] Preventive Medicine Officer Family Medicine 08/09/24 David Anna APRN.LINEN SORTER [address] [facility] [place] [address] Preventive Medicine Officer Internal Medicine 08/09/24 Domitila Knapp PA-C [address] [place] [address] [facility] Sql Developer Relationship Specialty Start Date End Date Ifeoma Davis MD [address] [place] [address] PCP - General Internal Medicine 12/07/14 Virginia Avalos PA-C [address] [place] [address] Preventive Medicine Officer Family Medicine 08/09/24 David Anna APRN.LINEN SORTER [address] [facility] [place] [address] [facility] Internal Medicine 08/09/24 Domitila Knapp PA-C [address] [facility] [address] [facility] 08/09/24 Team Status: Inactive Member Role [...] November 24, 2024 End: November 24, 2024 THERMAL ENGINEER. Allie Prakash Attending Provider Active Star t: November 24, 2024 End: November 24, 2024 THERMAL ENGINEER. Allie Prakash Referring Provider Active Star t: November 24, 2024 End: November 24, 2024 Sql Developer Relationship Specialty Start Date End Date Ifeoma Davis MD [address] [facility] [place] [address] PCP - General Internal Medicine 12/07/14 David Anna APRN.LINEN SORTER [address] [facility] [place] [facility] [place] [address] [facility] Internal Medicine 08/09/24 Sql Developer Relationship Specialty Start Date End Date Ifeoma Davis MD [address] [place] [address] [address] PCP - General Internal Medicine 12/07/14 David Anna APRN.LINEN SORTER [address] [facility] [place] [address] [facility] Internal Medicine 08/09/24 Sql Developer Relationship Specialty Start Date End Date Ifeoma Davis MD [address] [place] [address] PCP - General Internal Medicine 12/07/14 David Anna APRN.LINEN SORTER [address] [place] [address] Preventive Medicine Officer Internal Medicine 08/09/24 Sql Developer Relationship Specialty Start Date End Date Ifeoma Davis MD [address] [place] [address] PCP - General Internal Medicine 12/07/14 Virginai Avalos PA-C [address] [place] [address] Preventive Medicine Officer Family Medicine 08/09/24 11/22/24 David Anna APRN.LINEN SORTER [address] [place] [address] Preventive Medicine Officer Internal Medicine 08/09/24 Domitila Knapp PA-C [address] [place] [address] Preventive Medicine Officer Family Medicine 08/09/24 11/22/24 Sql Developer Relationship Specialty Start Date End Date Ifeoma Davis MD [address] [place] [address] PCP - General Internal Medicine 12/07/14 David Anna APRN.LINEN SORTER [address] [place] [address] Preventive Medicine Officer Internal Medicine 08/09/24 Sql Developer Relationship Specialty Start Date End Date Ifeoma Davis MD [address] [place] [address] PCP - General Internal Medicine 12/07/14 David Anna APRN.LINEN SORTER [address] [place], [place] 2[address] [phone] Preventive Medicine Officer Internal Medicine 08/09/24 Sql Developer Relationship Specialty Start Date End Date Ifeoma Davis MD [address] [place], [place] [address] [phone] PCP - General Internal Medicine 12/07/14 David Anna APRN.LINEN SORTER [address] [place] [address] Preventive Medicine Officer Internal Medicine 08/09/24 Sql Developer Relationship Specialty Start Date End Date Ifeoma Davis MD [address] [place] [address] PCP - General Internal Medicine 12/07/14 Virginia Avalos PA-C [address] [place] [address] Preventive Medicine Officer Family Medicine 08/09/24 11/22/24 David Anna APRN.LINEN SORTER [address] [place] [address] Preventive Medicine Officer Internal Medicine 08/09/24 Domitila Knapp PA-C [address] [place], [place] 5629[address] Preventive Medicine Officer Family Medicine 08/09/24 11/22/24 Sql Developer Relationship Specialty Start Date End Date Ifeoma Davis MD [address] [place], [place] [address] [phone] PCP - General Internal Medicine 12/07/14 Older, DavidMALIKN.LINEN SORTER [address] [place] [address] Preventive Medicine Officer Internal Medicine 08/09/24 Team Status: Active Member [...] November 24, 2024 End: November 24, 2024 THERMAL ENGINEERJermaine Prakash Referring Provider Active Star t: November [...] March 10, 2025 End: March 10, 2025 Sql Developer Relationship Specialty Start Date End Date Ifeoma Davis MD [address] [facility] [address] PCP - General Internal Medicine 12/07/14 David Anna, MENSWEAR SALESPERSON.LINEN SORTER [address] [facility] [place] [address] Preventive Medicine Officer Internal Medicine 08/09/24 Sql Developer Relationship Specialty Start Date End Date Ifeoma Davis MD [address] [facility] [address] PCP - General Internal Medicine 12/07/14 David Anna, MENSWEAR SALESPERSON.LINEN SORTER [address] [facility] [place] [address] Preventive Medicine Officer Internal Medicine 08/09/24 Sql Developer Relationship Specialty Start Date End Date Ifeoma Davis MD [address] [facility] [place] [address] PCP - General Internal Medicine 12/07/14 David Anna, MENSWEAR SALESPERSON.LINEN SORTER [address] [facility] [place] [address] Preventive Medicine Officer Internal Medicine 08/09/24 Sql Developer Relationship Specialty Start Date End Date Ifeoma Davis MD [address] [facility] [address] PCP - General Internal Medicine 12/07/14 David Anna APRN.LINEN SORTER [address] [facility] [place] [address] Preventive Medicine Officer Internal Medicine 08/09/24 Sql Developer Relationship Specialty Start Date End Date Ifeoma Davis MD [address] [facility] [place] [address] PCP - General Internal Medicine 12/07/14 David Anna APRN.LINEN SORTER [address] [facility] [place] [address] Preventive Medicine Officer Internal Medicine 08/09/24 Sql Developer Relationship Specialty Start Date End Date Ifeoma Davis MD [address] [facility] [address] PCP - General Internal Medicine 12/07/14 David Anna, MENSWEAR SALESPERSON.LINEN SORTER [address] [facility] [place] [address] Preventive Medicine Officer Internal Medicine 08/09/24 Sql Developer Relationship Specialty Start Date End Date Ifeoma Davis MD [address] [place] [address] PCP - General Internal Medicine 12/07/14 David Anna APRN.LINEN SORTER [address] [facility] [place] [address] Preventive Medicine Officer Internal Medicine 08/09/24 Sql Developer Relationship Specialty Start Date End Date Ifeoma Davis MD [address] [facility] [address] PCP - General Internal Medicine 12/07/14 Virginia Avalos PA-C [address] [place] [address] Preventive Medicine Officer Family [facility] 08/09/24 11/22/24 David Anna APRN.LINEN SORTER [address] [place] [address] Preventive Medicine Officer Internal Medicine 08/09/24 Domitila Knapp PA-C [address] [place] [address] [facility] 08/09/24 11/22/24 Sql Developer Relationship Specialty Start Date End Date Ifeoma Davis MD [address] [place], [place] [address] PCP - General Internal Medicine 12/07/14 Virginia Avalos PA-C [address] [place] [address] [facility] 08/09/24 11/22/24 David Anna APRN.LINEN SORTER [address] [place] [address] [facility] Internal Medicine 08/09/24 Domitila Knapp PA-C [address] [place] [address] [facility] 08/09/24 11/22/24 Team Status: Inactive Member [...] April 16, 2025 End: April 16, 2025 Sql Developer Relationship Specialty Start Date End Date Ifeoma Davis MD [address] [place] [address] PCP - General Internal Medicine 12/07/14 David Anna, MURTAZA.LINEN SORTER [address] [facility] [place], [place] [address] Preventive Medicine Officer Internal Medicine 08/09/24 Sql Developer Relationship Specialty Start Date End Date Ifeoma Davis MD [address] [place] [address] PCP - General Internal Medicine 12/07/14 David Anna APRN.LINEN SORTER [address] [facility] [place] [address] Preventive Medicine Officer Internal Medicine 08/09/24 Sql Developer Relationship Specialty Start Date End Date Ifeoma Davis MD [address] [facility] [place] [address] PCP - General Internal Medicine 12/07/14 Amilcar, MURTAZA Jarrett.LINEN SORTER [address] [facility] [place] [address] Preventive Medicine Officer Internal Medicine 08/09/24 Team Status: Active Member [...] 2025 End: June 03, 2025 Dr. Ifeoma Davsi MD Referring Provider Active Start: June 03, [...] (Given - Provid er: Jonathon Eugene MD) oujohmig-fnxakualx-nphotpdrtzgix 3.5 mg/g-10,000 unit/g-0.1 % (POLYDEX) X (OR/PROCEDURE) [...] section and content) DATE CREATED AUTHOR 11/01/2022 [facility] DATE CREATED AUTHOR AUTHOR'S ORGANIZ ATION 11/09/2022 [facility] DATE CREATED AUTHOR AUTHOR'S ORGANIZ ATION 01/08/2025 [facility] DATE CREATED AUTHOR AUTHOR'S ORGANIZ ATION 07/12/2025 [facility] DATE CREATED AUTHOR AUTHOR'S ORGANIZ ATION 07/14/[address] [facility] Goals (unrecognized section and content) Goals [...] BE BASED ON THE PRIMARY CLINICAL RECORDS. [facility]. provides no warranty or guarantee of the accuracy or completeness of information in this document.
[2025-09-01 18:10] VITALS: BP 115/67; PULSE 70; RESP 16; TEMP 36.4; O2SAT 99
== END 2025-09-01 18:13 | disposition home or self-care (01) ==
PROVIDERS: Emergency Provider Surgery; PCP Internal Medicine; Visit Provider Surgery
DX: R51.9 Headache, unspecified (principal); G89.29 Other chronic pain; I10 Essential (primary) hypertension; K21.9 Gastro-esophageal reflux disease without esophagitis; H54.8 Legal blindness, as defined in USA
CPT/HCPCS: 96361; 96374; 96375; 99283; A4216